=== PATIENT | female | born 1965 | race Caucasian/White ===

== ENCOUNTER → 2019-02-28 09:36 | Outpatient (CLI) | payer MEDICARE, MEDICAID, SELFPAY ==
--- NOTE | 2019-02-28 09:42 | CA_ITS ---
PROCEDURE: 2-D M-mode and color Doppler study INDICATIONS FOR THE TEST: Chest pain+ COPD Heart Murmur Tobacco SmokingEX Palpitations+ Fatigue Syncope Edema Hypertension+Diabetes Mellitus+ Rheumatic Fever SOB+VICK Obesity Hyperlipidemia+ Family History HD Additional History MVR mech, CKD PATIENT INFORMATION HEIGHT: 64 WEIGHT: 182 GENDER: Female B/P: 118/65 2-D/M-MODE INTERPRETATION: 2-D MEASUREMENTS OBSERVED VALUES IN CMS Right Ventricular Dimension (RVDd) 3.1 Interventricular Septum (Thickness)(IVsd) 1.0 Left Ventricular Internal Dimensions(LVIDd) 6.2 Left Ventricular Posterior Wall (Thickness)(LVPWd) 0.9 Aortic Root 2.4 Aortic Cusp Separation 1.8 Left Atrial Dimensions (LAD) 5.6 2D 1. Left atrium is moderately enlarged, left ventricle is mildly dilated, there is mild concentric left ventricular hypertrophy, visually estimated ejection fraction proximally 40%, there is abnormal septal motion. 2. The right atrium is markedly enlarged, right ventricle is moderately dilated with mildly reduced contractility. 3. The aortic valve is thickened and calcified leaflet can't to display mobility. 4. There is mechanical prosthetic valve seen in the mitral position. 5. The tricuspid valve leaflets are minimally thickened, the tricuspid annulus is dilated. 6. The pulmonic valve is poorly present. 7. No significant pericardial effusion noted. DOPPLER INTERROGATION: 1. The aortic outflow velocities within normal range, there is no aortic stenosis, there is mild aortic insufficiency. 2. The mitral inflow velocity is increased to 1.8 m/s across the prosthetic valve, mean gradient across valve is 5 mmHg, calculated valve area by pressure half time is 2.9 sq cm. There is no significant mitral regurgitation seen. 3. There is severe tricuspid regurgitation noted, calculated right ventricular systolic pressure is 47 mm of mildly consistent with moderate pulmonary hypertension. Inferior vena cava is dilated without significant discogenic collapse. CONCLUSION: 1. Biatrial enlargement, mildly dilated left ventricle, mild concentric left ventricular hypertrophy, visually estimated ejection fraction 40% with abnormal septal motion. 2. Moderately enlarged right ventricle with mild reduced contractility. 3. Normal functioning mechanical prosthetic valve in the mitral position without significant mitral inflow obstruction or mitral regurgitation. 4. Thickened and calcified aortic valve without Doppler evidence of aortic stenosis, there is mild aortic insufficiency. 5. Severe tricuspid reg
== END ==
PROVIDERS: PCP Internal Medicine; Visit Provider Nurse Practitioner Family
DX: I07.1 Rheumatic tricuspid insufficiency (principal); I50.33 Acute on chronic diastolic (congestive) heart failure; Z95.2 Presence of prosthetic heart valve
CPT/HCPCS: 93306

== ENCOUNTER → 2020-04-02 11:52 | Outpatient (CLI) | payer MEDICARE, SELFPAY ==
[2020-04-02 18:08] LABS: INR 1.96 (0.9-1.1); Prothrombin Time 19.7 seconds (9.4-11.8)
== END ==
PROVIDERS: Visit Provider Internal Medicine
DX: Z51.81 Encounter for therapeutic drug level monitoring (principal); Z79.01 Long term (current) use of anticoagulants
CPT/HCPCS: 85610

== ENCOUNTER → 2020-08-16 13:36 | Outpatient (POV) | payer MEDICARE, SELFPAY | PROVIDERS: Visit Provider Internal Medicine Nephrology | DX: Z00.00 Encounter for general adult medical examination without abnormal findings (principal) ==

== ENCOUNTER → 2020-10-18 13:58 | Outpatient (POV) | payer MEDICARE, SELFPAY | PROVIDERS: Visit Provider Internal Medicine Nephrology | DX: Z00.00 Encounter for general adult medical examination without abnormal findings (principal) ==

== ENCOUNTER → 2020-12-13 14:54 | Outpatient (POV) | payer MEDICARE, SELFPAY | PROVIDERS: Visit Provider Internal Medicine Nephrology | DX: Z00.00 Encounter for general adult medical examination without abnormal findings (principal) ==

== ENCOUNTER → 2021-02-05 12:55 | Outpatient (CLI) | payer MEDICARE, MEDICAID, SELFPAY ==
--- NOTE | 2021-02-05 12:57 | CA_ITS ---
APPROVED REPORT EXAM: Comprehensive 2D, Doppler, and color-flow Echocardiogram Safety Engineer: Malini Del Cid RVT Ht: 5 ft 4 in Wt: 182lbs BSA: 1.88 BP: 106/43 mmHg Indications: SOA,MECHANICAL MV,OBESITY,EDEMA,HTN,HLD,DM TDS-PT BODY HABITUS 2D Dimensions LVOT 1.71 cm (M/F) 1.5-2.5 M-Mode Dimensions RVDd 3.81 cm (0.9-2.6) LA Diam 6.50 cm (1.9-4.0) LVDd 6.49 cm (3.5-5.7) Ao Diam 2.50 cm (2.0-3.7) LVDs 5.20 cm (3.5-5.7) IVSd 0.33 cm (0.6-1.1) PWd 0.70 cm (0.6-1.1) EF (Teich) 39.80% FS 19.90% EDV (Teich) 215.20 mL TAPSE 1.73 (<1.7) ESV (Teich) 129.50 mL LV Diastology E Decel Time 267.00 (160-240 msec) MED E' 7.10 (< 7 cm/sec) E'/MED E' Ratio 27.18 (>14) LAT E' 12.60 (<10 cm/sec) E/LAT E' Ratio 15.32 (>14) Aortic Valve LVOT Max 94.00 (70-110 cm/s) LVOT VTI 20.47 cm AoV Peak Jak. 193.00 (50-130 cm/s) AI PHT 459.00 ms AO Peak GR. 15.00 mmHg AO Mean GR. 6.80 (<5 mmHg) AO VTI 37.12 (18-25 cm) CLAIR (VTI) 1.27 (2.5-4.5 cm2) Mitral Valve MV E Max Jak. 193.00 (40-130 cm/s) MV Decel. Time 267.00 (160-240 ms) MV PHT 78.00 ms Pulmonary Valve PV Peak Velocity 81.00 (50-150 cm/s) Tricuspid Valve TR P. Velocity 265.00 cm/s RAP Estimate 15.00 mmHg RVSP 43.10 mmHg Left Ventricle Left atrium is moderately enlarged, left ventricle is normal size, mild concentric left ventricular hypertrophy, there is abnormal septal motion, visually estimated ejection fraction approximately 45% with no regional wall motion abnormality, diastolic parameters are inconclusive. Right Ventricle Right atrium and right ventricle moderately enlarged with normal contractility. Aortic Valve Aortic valve is minimally thickened and fibrosed, there is no aortic stenosis, there is mild aortic insufficiency. Mitral Valve There is mechanical prosthetic valve noted in the mitral position, the valve is well-seated, the mean gradient across valve is 5.2 mmHg, valve area is 2.6 cm??? by pressure half-time which does not represent a significant mitral inflow obstruction, there is no significant mitral regurgitation. Tricuspid Valve Tricuspid valve is minimally thickened, there is severe tricuspid regurgitation, calculated right ventricular systolic pressure 38 mmHg. Pulmonic Valve Pulmonic valve is poorly visualized. Great Vessels Aortic root is normal size. Pericardium No significant pericardial effusion noted. Conclusion 1. Biatrial enlargement, normal left ventricular size, mild concentric left ventricular hypertrophy, visually estimated ejection fraction 45%, there is abnormal septal motion. Diastolic parameters are inconclusive. 2. Moderately enlarged right ventricle with normal contractility. 3. Thickened and calcified aortic valve without aortic stenosis, there is mild aortic insufficiency. 4. Normal functioning mechanical prosthetic valve in the mitral position. 5. Severe tricuspid regurgitation, calculated right ventricular systolic pressure is 38 mmHg, inferior vena cava is dilated without significant inspiratory collapse. 6. No significant pericardial effusion noted. Electronically signed by : Pedro Jacobsen, 02/06/2021 15:24:22
== END ==
PROVIDERS: PCP Internal Medicine; Visit Provider Nurse Practitioner Family
DX: Z01.818 Encounter for other preprocedural examination; R06.02 Shortness of breath; E10.9 Type 1 diabetes mellitus without complications; E78.2 Mixed hyperlipidemia; I07.1 Rheumatic tricuspid insufficiency; I11.0 Hypertensive heart disease with heart failure; I50.23 Acute on chronic systolic (congestive) heart failure; I50.32 Chronic diastolic (congestive) heart failure; I50.33 Acute on chronic diastolic (congestive) heart failure; N18.1 Chronic kidney disease, stage 1; N18.2 Chronic kidney disease, stage 2 (mild); Z95.2 Presence of prosthetic heart valve
CPT/HCPCS: 93306

== ENCOUNTER 2021-06-05 18:39 | Observation (INO) | payer MEDICARE, SELFPAY ==
[2021-06-05 18:40] VITALS: BP 140/85; PULSE 70; RESP 16; TEMP 37; O2SAT 93; BMI 29.9
--- NOTE | 2021-06-05 18:41 | XR_ITS ---
PROCEDURE INFORMATION: Exam: XR Chest Exam date and time: 06/05/2021 6:41 PM Age: 56 years old Clinical indication: Pain; Angina pectoris; Prior surgery; Surgery date: 6+ months; Surgery type: Mitral valve, some device to measure fluid around heart; Additional info: Chest pain TECHNIQUE: Imaging protocol: XR of the chest. Views: 1 view. Total images: 1 COMPARISON: No relevant prior studies available. FINDINGS: Tubes, catheters and devices: Left subclavian port with catheter tip in the distribution of the cavoatrial junction. Lungs: Normal pulmonary expansion. Mild central vascular congestion. Mild bilateral perihilar interstitial prominence and patchy mild alveolar densities which may represent mild perihilar edema or pneumonia. Pleural spaces: No pleural effusion. No pneumothorax. Heart/Mediastinum: Moderate-severe enlargement of the cardiac silhouette which could relate to cardiomegaly or pericardial effusion Prior median sternotomy. Prosthetic heart valve noted. No tracheal/mediastinal shift. Bones/joints: No acute osseous abnormalities are identified. Osteopenia. IMPRESSION: 1. Moderate-severe large mint of the cardiac silhouette which could relate to cardiomegaly or pericardial effusion. 2. Vascular congestive changes with mild bilateral perihilar interstitial and alveolar density which may reflect perihilar edema or pneumonia.
--- NOTE | 2021-06-05 18:49 | ECG_ITS ---
APPROVED REPORT Exam: Resting ECG HR:70 bpm ECG Measurements Heart Rate 70 AXES QRSd 122 QRS 107 QT 356 T 107 QTc 384 Conclusion Atrial fibrillation Rightward axis RSR' or QR pattern in V1 suggests right ventricular conduction delay Nonspecific ST and T wave abnormality Abnormal ECG Electronically signed by : Reji Castro, 06/06/2021 21:37:12
[2021-06-05 18:55] LABS: Basophils % 0.4 % (0.1-2.0); Eosinophils # 0.3 K/mm3 (0.0-0.4); Eosinophils % 3.2 % (0.1-12.0); Hematocrit 29.5 % (37.0-47.0); Hemoglobin 9.5 g/dL (12.2-16.2); Lymphocytes # 0.7 K/mm3 (0.7-4.5); Lymphocytes % 7.9 % (10-50); Mean Corpuscular Hemoglobin 23.8 pg (27.0-31.2); Mean Corpuscular Volume 74.1 fl (81-99); Mean Platelet Volume 7.8 fl (7.4-10.4); Monocytes # 0.5 K/mm3 (0.1-1.0); Monocytes % 6.1 % (1.7-9.3); Neutrophils # 6.8 K/mm3 (1.8-7.8); Neutrophils % 82.4 % (37.0-80.0); Platelet Count 294 K/mm3 (142-424); Red Blood Count 3.98 M/mm3 (4.20-5.40); Red Cell Distribution Width 18.2 % (11.5-17.5); White Blood Count 8.2 K/mm3 (4.8-10.8)
[2021-06-05 19:04] LABS: Alanine Aminotransferase 23 U/L (12-78); Albumin Level 4.9 g/dl (3.5-5.0); Albumin/Globulin Ratio 1.6 (1.1-1.8); Alkaline Phosphatase 125 U/L (38-126); Anion Gap 15.4 mEq/L (5-15); Aspartate Amino Transferase 37 U/L (14-36); Bilirubin,Total 0.8 mg/dl (0.2-1.3); Blood Urea Nitrogen 70 mg/dl (7-17); Calcium 9.4 mg/dl (8.4-10.2); Carbon Dioxide 35 mmol/L (22.0-30.0); Chloride 86 mmol/L (98-107); Creatinine Clearance Estimated 53 mL/min (50-200); Estimated Glomerular Filt Rate 36 ml/min (>60); GFR (African American) 43 ML/MIN (>60); Glucose 269 mg/dl (74-100); Magnesium 2.3 mg/dl (1.6-2.3); Sodium 134 mmol/L (136-145); Total Protein,Serum 7.9 g/dl (6.3-8.2)
--- NOTE | 2021-06-05 19:04 | HMH.EDGENADL ---
ED Disposition Clinical Impression: Hypokalemia, Pulmonary edema Disposition: Admitted as Observation Condition on Discharge: Good Referrals: Provider,Referral, [Referring] - - Critical Care Critical Care Time: No Attestation: On 06/05/21, the high probability of a clinically significant, sudden or life threatening deterioration of the following system(s) required my full and direct attention, intervention and personal management. The time I documented below is in addition to time spent performing reported procedures but includes the following listed in this critical care notation. Medical Decision Making - Medical Records Medical records reviewed: Yes: I reviewed the patient's medical records. - Jeancarlos Inquiry Pt receiving controlled substance: No Vital Signs: 06/05/21 18:40 Temperature 98.6 F Temperature Source Oral Pulse Rate [Left] 70 Respiratory Rate 16 Blood Pressure [Right Arm] 140/85 Blood Pressure Mean [Right Arm] 103 Blood Pressure Position [Right Arm] Supine 02 Sat by Pulse Oximetry 93 L Oxygen Delivery Method Room Air - Lab Data Lab Results 06/05/21 18:20: WBC 8.2, RBC 3.98 L, Hgb 9.5 L, Hct 29.5 L, MCV 74.1 L, MCH 23.8 L, MCHC 32.0, RDW 18.2 H, Plt Count 294, MPV 7.8, Neut % (Auto) 82.4 H, Lymph % (Auto) 7.9 L, [place] % (Auto) 6.1, Eos % (Auto) 3.2, Baso % (Auto) 0.4, Neut # (Auto) 6.8, Lymph # (Auto) 0.7, [place] # (Auto) 0.5, Eos # (Auto) 0.3, Baso # (Auto) 0.0 06/05/21 18:20: D-Dimer 0.37 06/05/21 18:20: Sodium 134 L, Potassium 2.4 L*, Chloride 86 L, Carbon Dioxide 35 H, Anion Gap 15.4 H, BUN 70 H, Creatinine 1.50 H, Estimated Creat Clear 53, Estimated GFR 36 L, Est GFR ( Amer) 43 L, Glucose 269 H, Calcium 9.4, Magnesium 2.3, Total Bilirubin 0.8, AST 37 H, ALT 23, Alkaline Phosphatase 125, Troponin I < 0.01, Total Protein 7.9, Albumin 4.9, Globulin 3.0, Albumin/Globulin Ratio 1.6 06/05/21 18:20: PT 15.9 H, INR 1.38 H Result diagrams: 06/05/21 18:20 06/05/21 18:20 Orders (Tests/Meds): ED MEDICATIONS Generic Name Dose Route Start Last Admin Trade Name Freq PRN Reason Stop Dose Admin Potassium Chloride/Water 100 mls @ 100 mls/hr 06/05/21 19:13 Potassium Chloride 10meq/100ml Ivpb IV 06/05/21 21:12 Q1H JOEY Discontinued Medications Generic Name Dose Route Start Last Admin Trade Name Freq PRN Reason Stop Dose Admin Potassium Chloride 40 meq 06/05/21 19:12 Potassium Chloride 20meq Tab PO 06/05/21 19:13 ONCE ONE ORDERS Category Date Time Status Comprehensive Metabolic Panel Stat Lab 06/05/21 18:20 Results Magnesium Stat Lab 06/05/21 18:20 Results Thyroid Stimulating Hormone Stat Lab 06/05/21 18:20 Results Troponin I Q3H Lab 06/05/21 18:20 Results Troponin I Q3H Lab 06/05/21 21:45 Ordered - LYDIA Score for Non-Stemi Age of Patient: 50-59 years old Heart Rate: 70-89 bpm Systolic Blood Pressure: 140-159 mmHg Serum Creatinine: 0.40-0.79 mg/dl CHF Killip Class: I-No CHF Other Risk Factors: None Non-Stemi Risk Score: 78 Medical Decision Narrative: 56-year-old female presents with generalized weakness and palpitations and right-sided chest pain. She is in no acute distress nontoxic-appearing comfortable in the bed. She has normal vital signs and is not having tachycardia at this time. She was placed on telemetry monitoring and large-bore IV was placed. She is on Coumadin, INR was checked. Low risk per Wells score for pulmonary embolism, D-dimer obtained to assess. Checking hemoglobin as well as anemia as possible. Atypical for myocardial infarction troponin ordered. Potassium was 2.4. Plan to give K -runs tonight. Recheck potassium in the morning. She has mild edema on her chest x-ray however saturation is only 93% and she is not distressed. We will hold IV fluids at this time. Discussed with Dr. Herbert plan to admit for observation General Adult HPI - General Chief complaint: Arrhythmia/Palpitations Stated complai
[2021-06-05 19:05] LABS: Prothrombin Time 15.9 seconds (10.1-12.5)
[2021-06-05 19:06] LABS: INR 1.38 (0.9-1.1)
[2021-06-05 19:12] LABS: Potassium 2.4 mmoL/L (3.5-5.1)
[2021-06-05 19:13] LABS: D-Dimer 0.37 ug/mL (0.0-0.5)
[2021-06-05 19:18] LABS: Troponin I < 0.01 ng/ml (0.00-0.034)
--- NOTE | 2021-06-05 19:32 | PC.NURSE ---
Dr. Piedad mcbride for service
--- NOTE | 2021-06-05 19:33 | PC.NURSE ---
patient on phone with Dr. Herbert
[2021-06-05 19:35] LABS: Thyroid Stimulating Hormone 0.89 uIU/mL (0.465-4.68)
[2021-06-05 20:34] LABS: Coronavirus 19, PCR Not Detected (NotDetected); Influenza A, PCR Not Detected (NotDetected); Influenza B, PCR Not Detected (NotDetected)
[2021-06-05 21:31] VITALS: BP 134/75; PULSE 67; RESP 18; TEMP 37; O2SAT 97
[2021-06-05 21:59] VITALS: BP 132/81; PULSE 77; RESP 18; TEMP 36.7; O2SAT 94; BMI 31.9
--- NOTE | 2021-06-05 21:59 | PC.NURSE ---
patient up to floor via wheelchair.
--- NOTE | 2021-06-05 22:18 | PC.NURSE ---
1645 paged instructional services specialist MD Gomez spoke with Dr. Herbert new orders received.
[2021-06-05 22:38] VITALS: PULSE 60
[2021-06-05 22:45] LABS: Troponin I 0.01 ng/ml (0.00-0.034)
[2021-06-05 23:40] VITALS: O2SAT 94
[2021-06-06] VITALS (18 sets, daily range): BP systolic 96–141; BP diastolic 49–81; PULSE 55–79; RESP 16–20; TEMP 36.6–37; O2SAT 94–100
[2021-06-06 07:06] LABS: Basophils % 0.5 % (0.1-2.0); Eosinophils # 0.3 K/mm3 (0.0-0.4); Eosinophils % 3.8 % (0.1-12.0); Hematocrit 27.9 % (37.0-47.0); Hemoglobin 8.9 g/dL (12.2-16.2); Lymphocytes # 0.7 K/mm3 (0.7-4.5); Lymphocytes % 8.9 % (10-50); Mean Corpuscular HGB Conc 31.9 g/dL (31.8-35.4); Mean Corpuscular Hemoglobin 23.7 pg (27.0-31.2); Mean Corpuscular Volume 74.4 fl (81-99); Mean Platelet Volume 7.8 fl (7.4-10.4); Monocytes # 0.5 K/mm3 (0.1-1.0); Monocytes % 5.9 % (1.7-9.3); Neutrophils # 6.6 K/mm3 (1.8-7.8); Neutrophils % 80.9 % (37.0-80.0); Platelet Count 252 K/mm3 (142-424); Red Blood Count 3.74 M/mm3 (4.20-5.40); Red Cell Distribution Width 18.3 % (11.5-17.5); White Blood Count 8.2 K/mm3 (4.8-10.8)
[2021-06-06 07:07] LABS: Anion Gap 13.5 mEq/L (5-15); Blood Urea Nitrogen 62 mg/dl (7-17); Calcium 9.2 mg/dl (8.4-10.2); Carbon Dioxide 38 mmol/L (22.0-30.0); Chloride 90 mmol/L (98-107); Creatinine Clearance Estimated 58 mL/min (50-200); Estimated Glomerular Filt Rate 39 ml/min (>60); GFR (African American) 47 ML/MIN (>60); Glucose 119 mg/dl (74-100); Magnesium 2.1 mg/dl (1.6-2.3); Phosphorous 3.7 mg/dl (2.5-4.5); Sodium 139 mmol/L (136-145)
--- NOTE | 2021-06-06 07:18 | P.CONPHA_ITS ---
[facility] Pharmacy VTE Monitoring - Patient Demographics Admission date: 06/05/21 Report Date: 06/06/21 Time: 07:18 Allergies/Adverse Reactions: Patient Allergies buprenorphine [From BUPRENEX] Allergy (Unknown, Verified 04/22/21 13:37) codeine [CODEINE] Allergy (Unknown, Verified 04/22/21 13:37) Corticosteroids (Glucocorticoids) [CORTICOSTEROIDS (GLUCOCORTICOIDS)] Allergy (Unknown, Verified 04/22/21 13:37) Iodinated Contrast Media [IODINATED CONTRAST- ORAL AND IV DYE] Allergy (Unknown, Verified 04/22/21 13:37) rosuvastatin [From CRESTOR] Allergy (Unknown, Verified 04/22/21 13:37) theophylline [From DAVID-DUR] Allergy (Unknown, Verified 04/22/21 13:37) prednisone Adverse Reaction (Verified 04/22/21 13:37) Height: 1.63 m Weight: 84.391 kg Patient Problems: Current Active Problems (Last Updated 07/03/20 @ 10:17 by Janette Barahona RN) Hypokalemia (Acute) Pulmonary edema (Acute) - VTE Risk Labs: VTE Related Lab Results Hgb 8.9 g/dL (12.2-16.2) L 06/06/21 05:56 Hct 27.9 % (37.0-47.0) L 06/06/21 05:56 Plt Count 252 K/mm3 (142-424) 06/06/21 05:56 PT 15.9 seconds (10.1-12.5) H 06/05/21 18:20 INR 1.38 (0.9-1.1) H 06/05/21 18:20 BUN 70 mg/dl (7-17) H 06/05/21 18:20 Creatinine 1.50 mg/dl (0.52-1.04) H 06/05/21 18:20 Estimated Creat Clear 53 mL/min (50-200) 06/05/21 18:20 VTE Risk Level: Low Risk - Prophylaxis VTE Prophylaxis Ordered?: Yes Types of VTE Prophylaxis: TEDS Knee High, Pharmacological Location of Applied Device: Bilateral Lower Extremeties Pharmacologic Type: Warfarin
--- NOTE | 2021-06-06 07:25 | HMH.HPDC ---
General - General Admission date:: 06/05/21 Discharge date: 06/06/21 *Admission Date: 06/05/21 [facility] History I have reviewed the patient's past medical history: Yes Medical History: Reports:: Atrial Fibrillation, Chronic Obstructive Pulmonary Disease (COPD), Diabetes Mellitus Type 2, Gastroesophageal Reflux Disease(GERD), Hyperlipidemia, Hypertension *Have you ever received a pneumonia vaccine?: Yes *Have you received a flu vaccine this season?: Yes Other Medical History: Reports: Anemia, Arthritis, Hypothyroidism Other Surgeries: Yes: Hernia Repair, Tubal Ligation Amputation: No Fractures: No - *Social History Smoking Status: Former smoker Tobacco Type: cigarettes Alcohol Intake: never Substance Use Type: denies use *Occupational Status:: retired Review of Systems - Review of Systems Review of systems:: pertinent systems reviewed and negative unless documented below (14 point review of systems performed, pertinent positives and negatives as per HPI) - *Neurologic Denies dizziness, Denies headache(s) Exam Vital signs and Labs for Last 24 Hours: Temp Pulse Resp BP Pulse Ox 97.8 F 69 16 118/63 100 06/06/21 05:02 06/06/21 05:02 06/06/21 05:02 06/06/21 05:02 06/06/21 05:02 Laboratory Results - last 24 hr 06/05/21 18:20: WBC 8.2, RBC 3.98 L, Hgb 9.5 L, Hct 29.5 L, MCV 74.1 L, MCH 23.8 L, MCHC 32.0, RDW 18.2 H, Plt Count 294, MPV 7.8, Neut % (Auto) 82.4 H, Lymph % (Auto) 7.9 L, [place] % (Auto) 6.1, Eos % (Auto) 3.2, Baso % (Auto) 0.4, Neut # (Auto) 6.8, Lymph # (Auto) 0.7, [place] # (Auto) 0.5, Eos # (Auto) 0.3, Baso # (Auto) 0.0 06/05/21 18:20: D-Dimer 0.37 06/05/21 18:20: Sodium 134 L, Potassium 2.4 L*, Chloride 86 L, Carbon Dioxide 35 H, Anion Gap 15.4 H, BUN 70 H, Creatinine 1.50 H, Estimated Creat Clear 53, Estimated GFR 36 L, Est GFR ( Amer) 43 L, Glucose 269 H, Calcium 9.4, Magnesium 2.3, Total Bilirubin 0.8, AST 37 H, ALT 23, Alkaline Phosphatase 125, Troponin I < 0.01, Total Protein 7.9, Albumin 4.9, Globulin 3.0, Albumin/Globulin Ratio 1.6, TSH 0.89 06/05/21 18:20: PT 15.9 H, INR 1.38 H 06/05/21 19:40: SARS-CoV-2 (PCR) Not detected, Influenza A Untype (PCR) Not detected, Influenza Type B (PCR) Not detected 06/05/21 22:14: Troponin I 0.01 06/06/21 05:56: WBC 8.2, RBC 3.74 L, Hgb 8.9 L, Hct 27.9 L, MCV 74.4 L, MCH 23.7 L, MCHC 31.9, RDW 18.3 H, Plt Count 252, MPV 7.8, Neut % (Auto) 80.9 H, Lymph % (Auto) 8.9 L, [place] % (Auto) 5.9, Eos % (Auto) 3.8, Baso % (Auto) 0.5, Neut # (Auto) 6.6, Lymph # (Auto) 0.7, [place] # (Auto) 0.5, Eos # (Auto) 0.3, Baso # (Auto) 0.0 I & O for Last 24 hours: Intake & Output 06/03/21 06/04/21 06/05/21 06/06/21 23:59 23:59 23:59 23:59 Weight 84.391 kg Results Labs on day of discharge: Labs from last 24 hours 06/06/21 06/05/21 06/05/21 05:56 22:14 19:40 WBC 8.2 RBC 3.74 L Hgb 8.9 L Hct 27.9 L MCV 74.4 L MCH 23.7 L MCHC 31.9 RDW 18.3 H Plt Count 252 MPV 7.8 Neut % (Auto) 80.9 H Lymph % (Auto) 8.9 L [place] % (Auto) 5.9 Eos % (Auto) 3.8 Baso % (Auto) 0.5 Neut # (Auto) 6.6 Lymph # (Auto) 0.7 [place] # (Auto) 0.5 Eos # (Auto) 0.3 Baso # (Auto) 0.0 PT INR D-Dimer Sodium Potassium Chloride Carbon Dioxide Anion Gap BUN Creatinine Estimated Creat Clear Estimated GFR Est GFR ( Amer) Glucose Calcium Magnesium Total Bilirubin AST ALT Alkaline Phosphatase Troponin I 0.01 Total Protein Albumin Globulin Albumin/Globulin Ratio TSH SARS-CoV-2 (PCR) Not detected Influenza A Untype (PCR) Not detected Influenza Type B (PCR) Not detected 06/05/21 06/05/21 06/05/21 18:20 18:20 18:20 WBC RBC Hgb Hct MCV MCH MCHC RDW Plt Count MPV Neut % (Auto) Lymph % (Auto) [place] % (Auto) Eos % (Auto) Baso % (Auto) Neut # (Auto) Lymph # (Auto) [place]imes #
--- NOTE | 2021-06-06 07:30 | CA_ITS ---
APPROVED REPORT EXAM: Comprehensive 2D, Doppler, and color-flow Echocardiogram Volcanologist: Shakira White RT(R) Ht: 5 ft 4 in Wt: 186lbs BSA: 1.90 BP: 118/63 mmHg Indications: AFIB, ex smoker, SOB, DM, HTN, hyperlipidemia, CHF, CM, mechanical MVR, GERD, pulmonary edema 2D Dimensions LVOT 2.02 cm (M/F) 1.5-2.5 LA Volume 173.20 mL LA Volume Index 91.64 mL/m2 (M/F) 16-34 M-Mode Dimensions RVDd 4.07 cm (0.9-2.6) LA Diam 5.92 cm (1.9-4.0) LVDd 6.11 cm (3.5-5.7) Ao Diam 2.39 cm (2.0-3.7) LVDs 5.13 cm (3.5-5.7) IVSd 0.85 cm (0.6-1.1) PWd 0.72 cm (0.6-1.1) EF (Teich) 33.10% FS 16.00% EDV (Teich) 187.60 mL ESV (Teich) 125.50 mL LV Diastology MED E' 9.70 (< 7 cm/sec) LAT E' 9.20 (<10 cm/sec) Aortic Valve LVOT Max 98.00 (70-110 cm/s) LVOT VTI 19.66 cm AoV Peak Jak. 211.00 (50-130 cm/s) AO Peak GR. 17.80 mmHg AO Mean GR. 8.80 (<5 mmHg) AO VTI 39.63 (18-25 cm) CLAIR (VTI) 1.59 (2.5-4.5 cm2) Mitral Valve MV PHT 90.00 ms Tricuspid Valve TR P. Velocity 267.00 cm/s RAP Estimate 10.00 mmHg RVSP 38.50 mmHg Left Ventricle Left atrium is moderately enlarged, left ventricle is normal size, mild concentric left ventricular hypertrophy, visually estimated ejection fraction 45%, there is abnormal septal motion. Diastolic parameters are inconclusive. Right Ventricle Right atrium is moderately enlarged, right ventricle is mildly dilated with normal contractility. Aortic Valve Aortic valve is thickened and calcified, mean gradient across aortic valve is 8.6 mmHg, this represents a mild aortic stenosis, there is no significant aortic insufficiency. Mitral Valve There is mechanical prosthetic valve noted in the mitral position, the valve is well-seated, the mean gradient across valve is 6.4 mmHg, valve area is 2.4 cm??? by pressure half-time, there is no significant mitral regurgitation seen. Tricuspid Valve Tricuspid valve is minimally thickened, there is moderate to severe tricuspid regurgitation, calculated right ventricular systolic pressure is 39 mmHg, inferior vena cava is mildly dilated without significant inspiratory collapse. Pulmonic Valve Pulmonic valve is poorly visualized. Great Vessels Aortic root is normal size. Pericardium No significant pericardial effusion noted. Conclusion 1. Moderate biatrial enlargement, normal left ventricular size, mild concentric left ventricular hypertrophy, visually estimated ejection fraction 45%, there is abnormal septal motion. Diastolic parameters are inconclusive. 2. Thickened and calcified aortic valve with mild aortic stenosis, there is no significant aortic insufficiency. 3. Mechanical prosthetic valve in the mitral position, valve area is 2.4 cm, by pressure half-time, mean gradient across valve is 6.4 mmHg. There is no significant mitral regurgitation seen. 4. Moderate to severe tricuspid regurgitation, calculated right ventricular systolic pressure is 36 mmHg. 5. Inferior vena cava is mildly dilated without significant inspiratory collapse with 6. No significant pericardial effusion noted. Electronically signed by : Pedro Jacobsen, 06/06/2021 09:54:01
[2021-06-06 07:35] LABS: Potassium 2.5 mmoL/L (3.5-5.1)
--- NOTE | 2021-06-06 08:12 | HMH.CNCARD ---
History of Present Illness Consult date: 06/06/21 Requesting physician: Neptali Herbert Consult reason: shortness of breath Chief complaint: CHF Additional Medical History:: 1. Normal coronaries, 2017 2. CHF, recurrent (HFrEF) A. 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 3. HTN A. Echo, 01/2021, 1. Biatrial enlargement, normal left ventricular size, mild concentric left ventricular hypertrophy, visually estimated ejection fraction 45%, there is abnormal septal motion. Diastolic parameters are inconclusive. 2. Moderately enlarged right ventricle with normal contractility. 3. Thickened and calcified aortic valve without aortic stenosis,there is mild aortic insufficiency. 4. Normal functioning mechanical prosthetic valve in the mitral position. 5. Severe tricuspid regurgitation, calculated right ventricular systolic pressure is 38 mmHg, inferior vena cava is dilated without significant inspiratory collapse. 6. No significant pericardial effusion noted. Electronically signed by : Pedro Jacobsen, 02/06/2021 15:24:22 4. Chronic A. fib, on coumadin managed by PCP 5. History of [facility] mechanical MV replacement, 2005, [place], [place], Dr. Paul Castillo A. Echocardiogram, 06/06/2021,1. Moderate biatrial enlargement, normal left ventricular size, mild concentric left ventricular hypertrophy, visually estimated ejection fraction 45%, there is abnormal septal motion. Diastolic parameters are inconclusive. 2. Thickened and calcified aortic valve with mild aortic stenosis, there is no significant aortic insufficiency. 3. Mechanical prosthetic valve in the mitral position, valve area is 2.4 cm, by pressure half-time, mean gradient across valve is 6.4 mmHg. There is no significant mitral regurgitation seen. 4. Moderate to severe tricuspid regurgitation, calculated right ventricular systolic pressure is 36 mmHg. 5. Inferior vena cava is mildly dilated without significant inspiratory collapse with 6. No significant pericardial effusion noted. Electronically signed by : Pedro Jacobsen, 06/06/2021 09:54:01 6. DM, type 2, diagnosed 2005 7. GERD 8. COPD 9. History of multiple urologic procedures for urethral stricture 10. Cardiorenal syndrome, followed by nephrology 11. Autoimmune iron deficiency hemolytic anemia A. Patient relates 170 units transfused in the past sometimes as often as every 3 weeks B. Indwelling PowerPort left chest C. Reportedly had prior bone marrow biopsy showing bone marrow functioning normally. Anemia related to spleen activity. History of present illness: 56-year-old white female with history of normal coronary arteries but recurrent congestive heart failure presented to the emergency department yesterday for increasing shortness of breath and weight gain despite adjustment of her diuretics through nephrology over the last month. Patient was admitted due to multiple lab abnormalities and failing outpatient therapy. Cardiology consulted due to marked cardiomegaly noted on chest x-ray. Patient does have an implanted CardioMEMS device with recent mean PA readings in the 30 to 40 mmHg range. Despite taking supplemental potassium her potassium level was 2.4 yesterday with creatinine of 1.5 and BUN of 70. Hemoglobin noted to be 9.5 yesterday and 8.9 this morning for which patient will be receiving 1 unit of blood. After receiving IV Lasix yesterday she does feel a little bit better this morning but not back to her baseline. Echocardiogram was obtained earlier today and is essentially unchanged from 4 months ago. Mitral valve appears to be working appropriately with no change in her aortic insufficiency. Ejection fraction is still estimated around 45%. Patient does have chronic chest pain related to sternotomy incision. [facility] History Medical History: Reports:: Atrial Fibrillation, Chronic Obstructive Pulmonary Dise
[2021-06-06 08:13] LABS: Hemoglobin A1C 7.2 % (4.0-6.0)
--- NOTE | 2021-06-06 09:01 | HMH.HP ---
*Admission Date: 06/05/21 *Chief complaint: SOA, palpitations *History of present illness: 56-year-old female with history of cardiorenal syndrome, Congestive heart failure, chronic kidney disease, chronic anemia, A. fib, on chronic anticoagulation who presented to the ER yesterday due to palpitations and shortness of breath. On arrival found to have low potassium, chest imaging of pulmonary edema, and concern for cardiomegaly. Admitted to medicine for electrolyte repletion and cardiology consult. On assessment this morning, reports she was recently admitted 10 days ago to [facility] for acute congestive heart failure with significant peripheral edema. Was started on diuretic daily with improvement in her shortness of breath and significant diuresis. Showed pictures of legs with 3+ pitting edema 2 weeks ago, no edema noted today on exam. Following from cardiology H&P: Cardiology consulted due to marked cardiomegaly noted on chest x-ray. Patient does have an implanted CardioMEMS device with recent mean PA readings in the 30 to 40 mmHg range. Despite taking supplemental potassium her potassium level was 2.4 yesterday with creatinine of 1.5 and BUN of 70. Hemoglobin noted to be 9.5 yesterday and 8.9 this morning for which patient will be receiving 1 unit of blood. After receiving IV Lasix yesterday she does feel a little bit better this morning but not back to her baseline. Echocardiogram was obtained earlier today and is essentially unchanged from 4 months ago. Mitral valve appears to be working appropriately with no change in her aortic insufficiency. Ejection fraction is still estimated around 45%. Patient does have chronic chest pain related to sternotomy incision. [facility] History I have reviewed the patient's past medical history: Yes Medical History: Reports:: Atrial Fibrillation, Chronic Obstructive Pulmonary Disease (COPD), Diabetes Mellitus Type 2, Gastroesophageal Reflux Disease(GERD), Hyperlipidemia, Hypertension *Have you ever received a pneumonia vaccine?: Yes *Have you received a flu vaccine this season?: Yes Other Medical History: Reports: Anemia, Arthritis, Hypothyroidism Other Surgeries: Yes: Hernia Repair, Tubal Ligation Amputation: No Fractures: No - *Social History Smoking Status: Former smoker Tobacco Type: cigarettes Alcohol Intake: never Substance Use Type: denies use *Occupational Status:: retired *Travel in the last 8 weeks: None Family Hx:: No significant family history Review of Systems - Review of Systems Review of systems:: pertinent systems reviewed and negative unless documented below (14 point review of systems performed, pertinent positives and negatives as per HPI) - *Neurologic Denies dizziness, Denies headache(s) Meds Home Medications Medication Instructions Recorded Confirmed Type aspirin 81 mg tablet,delayed 81 mg PO DAILY 12/01/17 06/06/21 History release warfarin 2.5 mg tablet 2.5 mg PO DIRECTED tab 12/01/17 06/06/21 History oxycodone-acetaminophen 10 mg-325 1 tab PO TIDP PRN tab 05/23/18 06/06/21 History mg tablet docusate sodium 100 mg capsule 100 mg PO TID PRN 02/22/19 06/05/21 History folic acid 1 mg tablet 1 mg PO DAILY 05/31/19 06/05/21 History alprazolam 0.5 mg tablet 0.5 mg PO TIDP PRN 11/29/19 06/06/21 History bumetanide 2 mg tablet 2 mg PO BID 07/03/20 06/05/21 History potassium chloride 10 mEq 20 meq PO DAILY tab 01/20/21 06/05/21 History tablet,extended release citalopram 40 mg tablet 40 mg PO DAILY tab 03/31/21 06/05/21 History diltiazem HCl 120 mg 120 mg PO DAILY cap 03/31/21 06/05/21 History capsule,extended release 24 hr famotidine 20 mg tablet 20 mg PO DAILY 04/22/21 06/05/21 History Levothyroxine Sodium [Synthroid 25 mcg PO DAILY 06/05/21 06/06/21 History 25mcg (0.025mg) tablet] Warfarin Sodium [Coumadin 5mg 5 mg PO DIRECTED 06/05/21 06/06/21 History tablet] metOLazone [metOLazone 2.5mg 5 mg PO DAILY 06/05/21 06/06/21 His
[2021-06-06 15:10] LABS: Hematocrit 30.5 % (37.0-47.0); Hemoglobin 9.7 g/dL (12.2-16.2)
--- NOTE | 2021-06-06 19:26 | PC.NURSE ---
RA SATS 90%. RETURN PT BACK TO 2L N/C
--- NOTE | 2021-06-06 19:56 | PC.NURSE ---
Pt alert and oriented with no c/o's this evening. Pt is stable. Remains in afib. VSS. CB in reach. Meds given per jan. Dr. Herbert did state free style could be used for mx of glucose.
--- NOTE | 2021-06-06 19:58 | PC.NURSE ---
Pt did have one unit of blood( approx 250 ml) infused and close to 3rd hr when pt c/o of itching. This RN immediately stopped blood and notified Dr. Herbert, he ordered 25 mg po benadryl. Pt stated that they usually give her IV benadryl prior to blood infusions. Dr. Herbert ordered not to administer the rest of the unit and check post h&h, which did improve to 9.7.
[2021-06-07] VITALS (13 sets, daily range): BP systolic 89–116; BP diastolic 51–78; PULSE 57–80; RESP 14–18; TEMP 36.4–36.8; O2SAT 89–100; BMI 31.6
--- NOTE | 2021-06-07 03:44 | PC.NURSE ---
shift summary pt is alert and oriented X4. pts lung sounds are clear with sats maintained 95% or above on 2L via NC. pt has rested comfortably during shift . pt is able to ambulate to the restroom unassisted, urine is clear and yellow in color. pt denies any nausea, vomiting, or diarrhea. no acute changes will continue to monitor.
[2021-06-07 07:02] LABS: Basophils # 0.1 K/mm3 (0-0.2); Basophils % 0.6 % (0.1-2.0); Eosinophils # 0.5 K/mm3 (0.0-0.4); Eosinophils % 6.5 % (0.1-12.0); Hematocrit 29.3 % (37.0-47.0); Hemoglobin 9.2 g/dL (12.2-16.2); Lymphocytes # 0.9 K/mm3 (0.7-4.5); Lymphocytes % 12.2 % (10-50); Mean Corpuscular HGB Conc 31.5 g/dL (31.8-35.4); Mean Corpuscular Hemoglobin 24.1 pg (27.0-31.2); Mean Corpuscular Volume 76.5 fl (81-99); Monocytes # 0.5 K/mm3 (0.1-1.0); Monocytes % 6.5 % (1.7-9.3); Neutrophils # 5.6 K/mm3 (1.8-7.8); Neutrophils % 74.2 % (37.0-80.0); Platelet Count 253 K/mm3 (142-424); Red Blood Count 3.82 M/mm3 (4.20-5.40); Red Cell Distribution Width 18.6 % (11.5-17.5); White Blood Count 7.6 K/mm3 (4.8-10.8)
[2021-06-07 07:11] LABS: Blood Urea Nitrogen 64 mg/dl (7-17); Carbon Dioxide 32 mmol/L (22.0-30.0); Chloride 95 mmol/L (98-107); Creatinine Clearance Estimated 34 mL/min (50-200); Estimated Glomerular Filt Rate 21 ml/min (>60); GFR (African American) 25 ML/MIN (>60); Glucose 97 mg/dl (74-100); Sodium 137 mmol/L (136-145)
[2021-06-07 07:14] LABS: INR 1.75 (0.9-1.1); Prothrombin Time 19.8 seconds (10.1-12.5)
--- NOTE | 2021-06-07 07:44 | PC.NURSE ---
Late entry: This RN notified Dr. Herbert of potassium of 2.5 yesterday morning when result was called to me, -06/06/21 am and also checked glucose at approx 1600 06/06/21 and it was 115 via free style reading.
[2021-06-07 08:34] LABS: Calcium 7.8 mg/dl (8.4-10.2)
--- NOTE | 2021-06-07 08:57 | HMH.ACPN2 ---
Internal Medicine - PN: Subj *Date: 06/07/21 *Time: 10:23 Interval history: Ms. Costa was transitioned on her regimen for heart failure and A. fib yesterday. Tolerated well other than some low blood pressure overnight. States she was little lightheaded but no syncope, chest pain, shortness of breath. Tolerating diet well. Afebrile. This morning her blood pressure is little soft so valsartan was held. Repeat blood pressure with systolic 112/63. Asymptomatic at this time. Reviewed labs from this morning, hemoglobin stable (still anemic). Kidney function somewhat worse with bump in creatinine today after adjustments to medication. Exam Vital signs and Labs for Last 24 Hours: Temp Pulse Resp BP Pulse Ox 97.8 F 68 18 89/51 L 97 06/07/21 08:00 06/07/21 08:00 06/07/21 08:00 06/07/21 08:00 06/07/21 08:00 Laboratory Results - last 24 hr 06/06/21 07:50: Blood Type O Positive, Antibody Screen Negative, Crossmatch (AHG) See Detail 06/06/21 14:47: Hgb 9.7 L, Hct 30.5 L 06/07/21 06:35: PT 19.8 H, INR 1.75 H 06/07/21 06:35: WBC 7.6, RBC 3.82 L, Hgb 9.2 L, Hct 29.3 L, MCV 76.5 L, MCH 24.1 L, MCHC 31.5 L, RDW 18.6 H, Plt Count 253, MPV 8.0, Neut % (Auto) 74.2, Lymph % (Auto) 12.2, Rawlins % (Auto) 6.5, Eos % (Auto) 6.5, Baso % (Auto) 0.6, Neut # (Auto) 5.6, Lymph # (Auto) 0.9, Rawlins # (Auto) 0.5, Eos # (Auto) 0.5 H, Baso # (Auto) 0.1 06/07/21 06:35: Sodium 137, Potassium 3.0 L, Chloride 95 L, Carbon Dioxide 32 H, Anion Gap 13.0, BUN 64 H, Creatinine 2.40 H D, Estimated Creat Clear 34, Estimated GFR 21 L, Est GFR ( Amer) 25 L D, Glucose 97, Calcium 7.8 L D, Magnesium 2.0 I & O for Last 24 hours: Intake & Output 06/04/21 06/05/21 06/06/21 06/07/21 23:59 23:59 23:59 23:59 Intake Total 840 / 1200 360 / 360 Balance 840 / 1200 360 / 360 Weight 84.391 kg 83.92 kg Narrative: - Constitutional NAD, chronically ill appearing, obese - *Routine HEENT Exam Head: Present: normocephalic Eye: Present: EOMI, PERRL ENT: Present: mucous membranes moist - *Routine Neck Exam Present: supple. Absent: lymphadenopathy - *Routine Respiratory Exam Present: CTA bilaterally, no crackles - *Routine Cardiovascular Exam Present: RRR, murmur - *Routine Abdominal Exam Present: soft, normoactive bowel sounds. Absent: tenderness - *Routine Extremities Exam No Edema, cyanosis, clubbing - *Routine Skin Exam Present: warm. Absent: rash - *Routine Neurological Exam Present: alert, oriented X3 Assessment and Plan (1) Hypokalemia Status: Acute Category: Medical Code(s): E87.6 - Hypokalemia (2) Pulmonary edema Status: Acute Category: Medical Code(s): J81.1 - Chronic pulmonary edema (3) SOB (shortness of breath) Status: Acute Category: Medical Code(s): R06.02 - Shortness of breath (4) Afib Status: Chronic Qualifiers: Atrial fibrillation type: chronic Category: Medical Code(s): I48.91 - Unspecified atrial fibrillation (5) Diabetes mellitus Status: Chronic Qualifiers: Diabetes mellitus type: type 1 Diabetes mellitus complication status: without complication Qualified Code(s): E10.9 - Type 1 diabetes mellitus without complications Category: Medical Code(s): E11.9 - Type 2 diabetes mellitus without complications (6) nursing home current use of anticoagulants with INR goal of 2.5-3.5 Status: Chronic Category: Medical Code(s): 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
--- NOTE | 2021-06-07 13:10 | PC.NURSE ---
Pts free style checked x 2 this am and it was 209 and the rechecked prior to lunch and it was 173. Pt didnt want ssi for that reading.
[2021-06-07 18:20] LABS: Anion Gap 16.4 mEq/L (5-15); Blood Urea Nitrogen 69 mg/dl (7-17); Carbon Dioxide 35 mmol/L (22.0-30.0); Chloride 87 mmol/L (98-107); Creatinine Clearance Estimated 35 mL/min (50-200); Estimated Glomerular Filt Rate 22 ml/min (>60); GFR (African American) 26 ML/MIN (>60); Glucose 165 mg/dl (74-100); Potassium 3.4 mmoL/L (3.5-5.1); Sodium 135 mmol/L (136-145)
[2021-06-07 18:33] LABS: Calcium 9.6 mg/dl (8.4-10.2)
--- NOTE | 2021-06-07 19:16 | PC.NURSE ---
Pt alert and oriented and able to make needs known. RR even and unlabored. Pt on RA to 2 L intermittently prn. CB in reach. VSS. Spoke with Dr. Herbert in RE to med changes- see his orders. Port to [place], and 18 in L AC - SL. Lungs cta, remains afib on tele, bs x4. Meds per jan. VSS.
[2021-06-08] VITALS: BP 118/62; PULSE 80; PULSE 82; RESP 17; TEMP 36.8; O2SAT 97
--- NOTE | 2021-06-08 03:48 | PC.NURSE ---
PT A&O. No c/o pain this shift. Lungs CTA, on 2L NC prn. Bowel sounds active x4, abd soft and nontender. Pt able to make needs known. IV patent. Port [place] patent. VSS, call light in reach, no concerns at this time.
[2021-06-08 03:51] VITALS: BP 98/54; PULSE 87; RESP 17; TEMP 36.6; O2SAT 95
[2021-06-08 04:00] VITALS: PULSE 90
[2021-06-08 05:00] VITALS: BMI 31.6
[2021-06-08 06:39] LABS: Basophils % 0.4 % (0.1-2.0); Eosinophils # 0.4 K/mm3 (0.0-0.4); Hemoglobin 9.8 g/dL (12.2-16.2); Lymphocytes # 0.7 K/mm3 (0.7-4.5); Mean Corpuscular HGB Conc 31.7 g/dL (31.8-35.4); Mean Corpuscular Hemoglobin 23.8 pg (27.0-31.2); Mean Corpuscular Volume 75.1 fl (81-99); Mean Platelet Volume 7.2 fl (7.4-10.4); Monocytes # 0.5 K/mm3 (0.1-1.0); Monocytes % 6.8 % (1.7-9.3); Neutrophils % 76.7 % (37.0-80.0); Platelet Count 259 K/mm3 (142-424); Red Blood Count 4.12 M/mm3 (4.20-5.40); Red Cell Distribution Width 18.7 % (11.5-17.5); White Blood Count 6.5 K/mm3 (4.8-10.8)
[2021-06-08 06:51] LABS: Prothrombin Time 23.2 seconds (10.1-12.5)
[2021-06-08 07:03] LABS: Alanine Aminotransferase 18 U/L (12-78); Albumin Level 4.5 g/dl (3.5-5.0); Albumin/Globulin Ratio 1.6 (1.1-1.8); Alkaline Phosphatase 113 U/L (38-126); Anion Gap 14.4 mEq/L (5-15); Aspartate Amino Transferase 32 U/L (14-36); Bilirubin,Total 0.8 mg/dl (0.2-1.3); Blood Urea Nitrogen 67 mg/dl (7-17); Calcium 9.3 mg/dl (8.4-10.2); Carbon Dioxide 37 mmol/L (22.0-30.0); Chloride 88 mmol/L (98-107); Creatinine Clearance Estimated 48 mL/min (50-200); Estimated Glomerular Filt Rate 31 ml/min (>60); GFR (African American) 37 ML/MIN (>60); Globulin 2.8 g/dL (1.3-3.2); Glucose 149 mg/dl (74-100); Magnesium 2.1 mg/dl (1.6-2.3); Potassium 3.4 mmoL/L (3.5-5.1); Sodium 136 mmol/L (136-145); Total Protein,Serum 7.3 g/dl (6.3-8.2)
[2021-06-08 07:09] LABS: INR 2.08 (0.9-1.1)
[2021-06-08 08:00] VITALS: BP 108/66; PULSE 81; RESP 18; TEMP 37; O2SAT 96
--- NOTE | 2021-06-08 08:33 | HMH.DCSUM ---
General - General Admission date:: 06/05/21 Discharge date: 06/08/21 HPI HPI: 56-year-old female with history of cardiorenal syndrome, Congestive heart failure, chronic kidney disease, chronic anemia, A. fib, on chronic anticoagulation who presented to the ER yesterday due to palpitations and shortness of breath. On arrival found to have low potassium, chest imaging of pulmonary edema, and concern for cardiomegaly. Admitted to medicine for electrolyte repletion and cardiology consult. On assessment this morning, reports she was recently admitted 10 days ago to for acute congestive heart failure with significant peripheral edema. Was started on diuretic daily with improvement in her shortness of breath and significant diuresis. Showed pictures of legs with 3+ pitting edema 2 weeks ago, no edema noted today on exam. Following from cardiology H&P: Cardiology consulted due to marked cardiomegaly noted on chest x-ray. Patient does have an implanted CardioMEMS device with recent mean PA readings in the 30 to 40 mmHg range. Despite taking supplemental potassium her potassium level was 2.4 yesterday with creatinine of 1.5 and BUN of 70. Hemoglobin noted to be 9.5 yesterday and 8.9 this morning for which patient will be receiving 1 unit of blood. After receiving IV Lasix yesterday she does feel a little bit better this morning but not back to her baseline. Echocardiogram was obtained earlier today and is essentially unchanged from 4 months ago. Mitral valve appears to be working appropriately with no change in her aortic insufficiency. Ejection fraction is still estimated around 45%. Patient does have chronic chest pain related to sternotomy incision. Hospital Course Hospital Course: Patient was admitted, cardiology evaluated her, made adjustments as noted, decided to transition from calcium channel blockade to valsartan. She initially tolerated this well, blood pressures however were soft the day before discharge and this was held. This morning she is feeling much better, blood pressures in the 108 range systolically. Potassium and kidney function have both improved and heading towards normal. This morning she is sitting up in a chair, eating breakfast he feels great with no edema. Plan will be as follows: 1. She will be discharged home today to resume spironolactone, Bumex and warfarin 5 mg/day which is slightly higher than her home dose given her low INR at home. 2. We will prescribe low-dose valsartan. She will pick this up tomorrow and start taking at home and we will follow with close blood pressure monitoring in our office in [place] on . I have ordered labs including INR, CBC and BMP to have done on June 10 or before her appointment on June 12. 3. She lives in [place] and is elected to pursue follow-up with our office on morning given the location, need for frequent evaluation and follow-up of her other internal medicine type problems. Appointment has been made. 4. I have asked her to follow-up with cardiology on Wednesday with Dr. Jacobsen, to continue ongoing medicine adjustment for heart failure. 5. Given her mechanical valve and need for aggressive yet tight control of INR she will be enrolled in our Coumadin clinic here-has never been enrolled in a Coumadin clinic before. Objective Vital signs: Temp Pulse Resp BP Pulse Ox 98.6 F 81 18 108/66 L 96 06/08/21 08:00 06/08/21 08:00 06/08/21 08:00 06/08/21 08:00 06/08/21 08:00 no acute distress - *Routine HEENT Exam Head: Present: normocephalic Eye: Present: EOMI, PERRL ENT: Present: mucous membranes moist - *Routine Neck Exam Present: supple - *Routine Respiratory Exam Present: CTA bilaterally - *Routine Cardiovascular Exam Present: RRR, click (Expected for mechanical valve) - *Routine Abdominal Exam Present: soft, normoactive bowel sounds. Absent: tenderness - *Routine Extre
== END 2021-06-08 10:56 | disposition home or self-care (01) ==
LOC: ER 19:38 → 2ND 20:21
PROVIDERS: Admitting Provider Internal Medicine Adolescent Medicine; Emergency Provider Emergency Medicine; PCP Internal Medicine; Visit Provider Internal Medicine Adolescent Medicine
DX: I50.23 Acute on chronic systolic (congestive) heart failure (principal); Z95.2 Presence of prosthetic heart valve; Z79.01 Long term (current) use of anticoagulants; Z79.4 Long term (current) use of insulin; E03.9 Hypothyroidism, unspecified; I48.20 Chronic atrial fibrillation, unspecified; N18.2 Chronic kidney disease, stage 2 (mild); I13.0 Hypertensive heart and chronic kidney disease with heart failure and stage 1 through stage 4 chronic kidney disease, or unspecified chronic kidney disease; E11.22 Type 2 diabetes mellitus with diabetic chronic kidney disease; Z88.8 Allergy status to other drugs, medicaments and biological substances; E87.6 Hypokalemia; J81.1 Chronic pulmonary edema; D64.9 Anemia, unspecified; Z20.822 Contact with and (suspected) exposure to COVID-19
CPT/HCPCS: 36415; 71045; 80048; 80053; 83036; 83735; 84100; 84443; 84484; 85014; 85018; 85025; 85378; 85610; 86850; 93005; 93306; 94760; 99284; G0378; P9016; U0003

== ENCOUNTER 2021-06-10 08:41 | Outpatient (CLI) | payer MEDICARE, BC, SELFPAY ==
[2021-06-10 15:57] LABS: PHA INR Fingerstick 2.5 (0.9-1.1)
== END 2021-06-10 16:33 | disposition home or self-care (01) ==
LOC: ACC 08:44
PROVIDERS: PCP Internal Medicine; Visit Provider Internal Medicine Adolescent Medicine
DX: Z51.81 Encounter for therapeutic drug level monitoring (principal); Z79.01 Long term (current) use of anticoagulants
CPT/HCPCS: 85610; 99211; G0463

== ENCOUNTER → 2021-06-19 13:11 | Outpatient (CLI) | payer MEDICARE, BC, SELFPAY ==
[2021-06-19 13:57] LABS: Prothrombin Time 25.6 seconds (10.1-12.5)
[2021-06-19 14:10] LABS: INR 2.31 (0.9-1.1)
== END ==
PROVIDERS: Internal Medicine Adolescent Medicine; PCP Internal Medicine Adolescent Medicine; Visit Provider Internal Medicine Adolescent Medicine
DX: Z51.81 Encounter for therapeutic drug level monitoring (principal); Z79.01 Long term (current) use of anticoagulants; Z95.2 Presence of prosthetic heart valve
CPT/HCPCS: 36415; 85610

== ENCOUNTER 2021-06-23 18:22 | Observation (INO) | payer MEDICARE, MEDICAID, SELFPAY ==
[2021-06-23] VITALS (8 sets, daily range): BP systolic 96–110; BP diastolic 44–75; PULSE 66–104; RESP 12–17; TEMP 36.6–36.8; O2SAT 94–99; BMI 34.3
--- NOTE | 2021-06-23 18:23 | ECG_ITS ---
APPROVED REPORT Exam: Resting ECG HR:79 bpm ECG Measurements Heart Rate 79 AXES QRSd 106 QRS 64 QT 438 T 79 QTc 502 Conclusion Atrial fibrillation Incomplete right bundle branch block Prolonged QT Abnormal ECG Electronically signed by : Reji Castro, 06/24/2021 08:23:19
--- NOTE | 2021-06-23 18:57 | XR_ITS ---
PROCEDURE INFORMATION: Exam: XR Chest Exam date and time: 06/23/21 06:57 PM Age: 56 years old Clinical indication: Pain; Other: Chest; Additional info: SOB, chest pain TECHNIQUE: Imaging protocol: XR of the chest. Views: 1 view. COMPARISON: CR XR CHEST PORTABLE 06/05/21 06:56 PM FINDINGS: Tubes, catheters and devices: Left subclavian MediPort catheter overlies the SVC. Lungs: Unremarkable. No consolidation. Pleural spaces: Unremarkable. No pleural effusion. No pneumothorax. Heart/Mediastinum: Cardiomegaly with mitral valve replacement. Bones/joints: Unremarkable. Other findings: No significant interval change since 06/05/2021. IMPRESSION: 1. Cardiomegaly with mitral valve replacement. 2. Left subclavian MediPort catheter overlies the SVC. 3. No significant interval change since 06/05/2021.
[2021-06-23 19:08] LABS: Basophils % 0.4 % (0.1-2.0); Eosinophils # 0.3 K/mm3 (0.0-0.4); Eosinophils % 4.4 % (0.1-12.0); Lymphocytes # 0.5 K/mm3 (0.7-4.5); Mean Corpuscular HGB Conc 31.8 g/dL (31.8-35.4); Mean Corpuscular Hemoglobin 24.3 pg (27.0-31.2); Mean Corpuscular Volume 76.3 fl (81-99); Mean Platelet Volume 7.6 fl (7.4-10.4); Monocytes # 0.3 K/mm3 (0.1-1.0); Monocytes % 3.8 % (1.7-9.3); Neutrophils # 6.3 K/mm3 (1.8-7.8); Neutrophils % 84.4 % (37.0-80.0); Platelet Count 242 K/mm3 (142-424); Red Blood Count 3.15 M/mm3 (4.20-5.40); Red Cell Distribution Width 19.2 % (11.5-17.5); White Blood Count 7.5 K/mm3 (4.8-10.8)
[2021-06-23 19:09] LABS: Chloride 102 mmol/L (98-107); Potassium 3.8 mmoL/L (3.5-5.1); Sodium 139 mmol/L (136-145)
[2021-06-23 19:10] LABS: Hemoglobin 7.6 g/dL (12.2-16.2)
--- NOTE | 2021-06-23 19:11 | PC.NURSE ---
Spoke with Ney in lab. Critical H&H reportedd of 7.6 and 24. Repeated and confirmed by this nurse.
[2021-06-23 19:12] LABS: Alanine Aminotransferase 16 U/L (12-78); Albumin/Globulin Ratio 1.5 (1.1-1.8); Alkaline Phosphatase 82 U/L (38-126); Aspartate Amino Transferase 27 U/L (14-36); Bilirubin,Total 0.5 mg/dl (0.2-1.3); Blood Urea Nitrogen 61 mg/dl (7-17); Creatinine Clearance Estimated 52 mL/min (50-200); Estimated Glomerular Filt Rate 31 ml/min (>60); GFR (African American) 37 ML/MIN (>60); Globulin 2.6 g/dL (1.3-3.2); Total Protein,Serum 6.6 g/dl (6.3-8.2)
[2021-06-23 19:13] LABS: Calcium 8.5 mg/dl (8.4-10.2); Glucose 129 mg/dl (74-100)
--- NOTE | 2021-06-23 19:17 | HMH.EDGENADL ---
ED Disposition Clinical Impression: Symptomatic anemia Volume overload Qualifiers: Hypervolemia type: unspecified Qualified Code(s): E87.70 - Fluid overload, unspecified Disposition: Admitted As Inpatient Condition on Discharge: Fair - Critical Care Critical Care Time: No Attestation: On 06/23/21, the high probability of a clinically significant, sudden or life threatening deterioration of the following system(s) required my full and direct attention, intervention and personal management. The time I documented below is in addition to time spent performing reported procedures but includes the following listed in this critical care notation. Medical Decision Making - Medical Records Medical records reviewed: Yes: I reviewed the patient's medical records. - Jeancarlos Inquiry Pt receiving controlled substance: No Vital Signs: 06/23/21 18:22 06/23/21 18:39 Temperature 98.3 F Temperature Source Oral Pulse Rate 79 Pulse Rate [Left] 82 Respiratory Rate 12 13 Blood Pressure 106/61 L Blood Pressure [Right Arm] 96/44 L Blood Pressure Mean [Right Arm] 61 Blood Pressure Source [Right Arm] Automatic Cuff Blood Pressure Position [Right Arm] Supine 02 Sat by Pulse Oximetry 99 94 L Oxygen Delivery Method Room Air - Lab Data Lab Results 06/23/21 18:35: WBC 7.5, RBC 3.15 L, Hgb 7.6 L*, Hct 24.0 L, MCV 76.3 L, MCH 24.3 L, MCHC 31.8, RDW 19.2 H, Plt Count 242, MPV 7.6, Neut % (Auto) 84.4 H, Lymph % (Auto) 7.0 L, Yell % (Auto) 3.8, Eos % (Auto) 4.4, Baso % (Auto) 0.4, Neut # (Auto) 6.3, Lymph # (Auto) 0.5 L, Yell # (Auto) 0.3, Eos # (Auto) 0.3, Baso # (Auto) 0.0 06/23/21 18:35: Sodium 139, Potassium 3.8, Chloride 102, Carbon Dioxide 28, BUN 61 H, Creatinine 1.70 H, Estimated Creat Clear 52, Estimated GFR 31 L, Est GFR ( Amer) 37 L, Glucose 129 H, Calcium 8.5, Total Bilirubin 0.5, AST 27, ALT 16, Alkaline Phosphatase 82, Troponin I < 0.01, Total Protein 6.6, Albumin 4.0, Globulin 2.6, Albumin/Globulin Ratio 1.5 06/23/21 19:15: Urine Color Yellow, Urine Appearance Clear, Urine pH 6.0, Ur Specific Yale 1.010, Urine Protein Negative, Urine Glucose (UA) Negative, Urine Ketones Negative, Urine Blood Negative, Urine Nitrate Negative, Urine Bilirubin Negative, Urine Urobilinogen 0.2, Ur Leukocyte Esterase Negative, Urine RBC None, Urine WBC None, Ur Squamous Epith Cells 5-10, Urine Bacteria None Result diagrams: 06/23/21 18:35 06/23/21 18:35 Orders (Tests/Meds): ORDERS Category Date Time Status Type and Screen Stat BBK 06/23/21 19:31 Received XR chest portable Stat Exams 06/23/21 18:57 Taken BNP [Brain Natriuretic Peptide] Stat Lab 06/23/21 18:35 Received Comprehensive Metabolic Panel Stat Lab 06/23/21 18:35 Results Troponin I Q3H Lab 06/23/21 22:00 Ordered Troponin I Q3H Lab 06/24/21 01:00 Ordered Troponin I Stat Lab 06/23/21 18:35 Results - ECG Data Tracing #1 ECG initial impression date: 06/23/21 ECG initial impression time: 18:25 Normal Sinus Rhythm: No Arrhythmias present: afib/aflutter - Physician Consults Physician Consulted: Juan Antonio Time: 19:40 Reason -: Admission Comment/Response: Okay to admit, transfuse 1 unit and give diuretics - LYDIA Score for Non-Stemi Age of Patient: 50-59 years old Heart Rate: 70-89 bpm Systolic Blood Pressure: 80-99 mmHg Serum Creatinine: 1.60-1.99 mg/dl CHF Killip Class: II-Pulmonary Rales or Jug Other Risk Factors: None Non-Stemi Risk Score: 136 - LYDIA Score for Stemi Age of Patient: 60-69 years old Heart Rate: 70-89 bpm Systolic Blood Pressure: 80-99 mmHg Serum Creatinine: 1.60-1.99 mg/dl CHF [place] Class: II-Pulmonary Rales or Jug Other Risk Factors: None Stemi Risk Score: 153 Medical Decision Narrative: Upon presentation, patient is hemodynamically stable but uncomfortable appearing. Patient presents with palpitations and chest pain. Patient has a history of hemolytic anemia and multiple cardiac surgeries. Differential diagnosis
[2021-06-23 19:20] LABS: Microscopic, Urine URINE MICROSCOPIC (MICROSCOPIC)
[2021-06-23 19:23] LABS: Appearance,Urine CLEAR (Clear); Bilirubin,Urine Negative (Negative); Blood, Urine Negative (Negative); Color,Urine YELLOW (Yellow); Glucose,Urine (UA) Negative (Negative); Ketones,Urine Negative (Negative); Leukocyte Esterase,Urine Negative (Negative); Nitrate,Urine Negative (Negative); Protein,Urine Negative (Negative); Urobilinogen,Urine 0.2 EU/dl (0.2)
[2021-06-23 19:28] LABS: Troponin I < 0.01 ng/ml (0.00-0.034)
--- NOTE | 2021-06-23 19:42 | PC.NURSE ---
riley cabral on phone with dr jaeger @ this time
[2021-06-23 20:10] LABS: NT Pro Brain Natriuretic Pep. 958 pg/mL (0-125)
[2021-06-23 20:47] LABS: Anion Gap 12.8 mEq/L (5-15); Carbon Dioxide 28 mmol/L (22.0-30.0)
--- NOTE | 2021-06-23 21:12 | PC.NURSE ---
patient up to floor via wheelchair.
[2021-06-23 23:32] LABS: Troponin I < 0.01 ng/ml (0.00-0.034)
[2021-06-24] VITALS (27 sets, daily range): BP systolic 90–120; BP diastolic 43–66; PULSE 50–90; RESP 16–20; TEMP 36.6–37; O2SAT 94–98; BMI 33.1
--- NOTE | 2021-06-24 00:42 | PC.NURSE ---
patient declined huddleston catheter at this time. verified with 2nd rn. hat in toilet.
[2021-06-24 01:27] LABS: Troponin I < 0.01 ng/ml (0.00-0.034)
[2021-06-24 03:13] LABS: Hematocrit 24.2 % (37.0-47.0)
--- NOTE | 2021-06-24 03:16 | PC.NURSE ---
CRITICAL HGB LEVEL CALLED BY HERO MOTA IN LAB. 7.5 R/V
[2021-06-24 03:17] LABS: Hemoglobin 7.5 g/dL (12.2-16.2)
--- NOTE | 2021-06-24 04:00 | PC.NURSE ---
PATIENT HAS BEEN VERY PLEASANT THIS SHIFT. NO ACUTE CHANGES. SHE REMAINS A&O X4. NEW IV IN RIGHT FOREARM DUE TO IMPLANTED PORT NOT ACCESSIBLE. ATTEMPTED BY RN X3. NO NEEDS. CALL APARICIO IN REACH
--- NOTE | 2021-06-24 07:38 | HMH.PHAVTE ---
[facility] Pharmacy VTE Monitoring - Patient Demographics Admission date: 06/23/21 Report Date: 06/24/21 Time: 07:38 Allergies/Adverse Reactions: Patient Allergies buprenorphine [From BUPRENEX] Allergy (Unknown, Verified 06/23/21 23:19) codeine [CODEINE] Allergy (Unknown, Verified 06/23/21 23:19) Corticosteroids (Glucocorticoids) [CORTICOSTEROIDS (GLUCOCORTICOIDS)] Allergy (Unknown, Verified 06/23/21 23:19) Iodinated Contrast Media [IODINATED CONTRAST- ORAL AND IV DYE] Allergy (Unknown, Verified 06/23/21 23:19) rosuvastatin [From CRESTOR] Allergy (Unknown, Verified 06/23/21 23:19) theophylline [From DAVID-DUR] Allergy (Unknown, Verified 06/23/21 23:19) prednisone Adverse Reaction (Verified 06/23/21 23:19) Height: 1.63 m Weight: 90.718 kg Patient Problems: Current Active Problems (Last Updated 07/03/20 @ 10:17 by Janette Barahona RN) Symptomatic anemia (Acute) Volume overload (Acute) - VTE Risk Labs: VTE Related Lab Results Hgb 7.5 g/dL (12.2-16.2) L* 06/24/21 03:00 Hct 24.2 % (37.0-47.0) L 06/24/21 03:00 Plt Count 242 K/mm3 (142-424) 06/23/21 18:35 BUN 61 mg/dl (7-17) H 06/23/21 18:35 Creatinine 1.70 mg/dl (0.52-1.04) H 06/23/21 18:35 Estimated Creat Clear 52 mL/min (50-200) 06/23/21 18:35 VTE Score: 6 VTE Risk Level: Moderate Risk - Prophylaxis VTE Prophylaxis Ordered?: Yes Types of VTE Prophylaxis: TEDS Knee High Location of Applied Device: Bilateral Lower Extremeties
--- NOTE | 2021-06-24 07:44 | HMH.HP ---
*Admission Date: 06/23/21 *Chief complaint: SOA, fatigue *History of present illness: Patient is a 56-year-old female with multiple medical problems including autoimmune hemolytic anemia, A. fib on blood thinner, presenting with palpitations and shortness of breath. States she began having chest discomfort and shortness of breath yesterday causing her to come to the ER for further assessment. Also complains of some diffuse abdominal discomfort. On arrival found to have [place] anemia. Review of labs shows worsening acute on chronic anemia. Given patient's underlying conditions, she was admitted for transfusion and further assessment. On assessment this morning, she has had an adequate response to blood cell transfusion. Getting a second unit on rounds this morning. Denies any chest pain or shortness of breath. Discusses most recent appointment with cardiology, some adjustments were made to her medications due to low blood pressure. Has unfortunately gained 15 pounds since last admission. Feels short of breath and is worried it is her heart or her kidneys. Reviewed imaging, echo, labs from last admission. Expressed concern to patient for acute worsening of her CHF and worsening of her anemia. Has responded well to diuretic overnight with proximately 800-1,000 mL of UOP and states she feels much better. [facility] History I have reviewed the patient's past medical history: Yes Medical History: Reports:: Atrial Fibrillation, Congestive Heart Failure, Chronic Obstructive Pulmonary Disease (COPD), Diabetes Mellitus Type 2, Gastroesophageal Reflux Disease(GERD), Hyperlipidemia, Hypertension Denies:: Cancer, Diabetes Mellitus Type 1, MRSA *Have you ever received a pneumonia vaccine?: Yes *Have you received a flu vaccine this season?: No Other Medical History: Reports: Anemia, Arthritis, Hypothyroidism, Thyroid Disease Other Surgeries: Yes: Hernia Repair, Tubal Ligation, Other (Mitral valve replacement.) Amputation: No Fractures: No - *Social History Last grade of school completed: Advanced degree Smoking Status: Former smoker Tobacco Type: cigarettes Alcohol Intake: never Substance Use Type: denies use *Occupational Status:: retired *Travel in the last 8 weeks: None Family Hx:: Anemia, Heart Attack, Hyperlipidemia, Hypertension, Kidney Disease, Mental illness Review of Systems - Review of Systems Review of systems:: pertinent systems reviewed and negative unless documented below (14 point review of systems performed, pertinent positives and negatives as per HPI) Meds Home Medications Medication Instructions Recorded Confirmed Type aspirin 81 mg tablet,delayed 81 mg PO DAILY 12/01/17 06/23/21 History release oxycodone-acetaminophen 10 mg-325 1 tab PO TIDP PRN tab 05/23/18 06/23/21 History mg tablet docusate sodium 100 mg capsule 100 mg PO TIDP PRN 02/22/19 06/24/21 History folic acid 1 mg tablet 1 mg PO DAILY 05/31/19 06/23/21 History alprazolam 0.5 mg tablet 0.5 mg PO TIDP PRN 11/29/19 06/23/21 History bumetanide 2 mg tablet 2 mg PO BID 07/03/20 06/23/21 History potassium chloride 10 mEq 20 meq PO DAILY tab 01/20/21 06/23/21 History tablet,extended release citalopram 40 mg tablet 40 mg PO DAILY tab 03/31/21 06/23/21 History famotidine 20 mg tablet 20 mg PO DAILY 04/22/21 06/23/21 History Levothyroxine Sodium [Synthroid 25 mcg PO DAILY 06/05/21 06/23/21 History 25mcg (0.025mg) tablet] Dexlansoprazole [Dexilant] 60 mg PO DAILY 06/06/21 06/23/21 History Ergocalciferol (Vitamin D2) 50,000 units PO MONTHLY 06/06/21 06/23/21 History [Drisdol 50,000 units (1.25mg) capsule] Insulin Glargine,Hum.rec.anlog 80 units SQ DAILY 06/06/21 06/23/21 History [Amanda Sellers] valsartan 80 mg tablet 40 mg PO DAILY tab 06/19/21 06/23/21 History Metoprolol Succinate [Metoprolol 25 mg PO HS 06/23/21 06/23/21 History Succinate 25mg Tablet*] Olopatadine HCl 1 drop OP DAILY 06/23/21 06/24/21 History Ondansetron [Zofran 4mg OD
--- NOTE | 2021-06-24 09:41 | HMH.CNCARD ---
History of Present Illness Consult date: 06/24/21 Requesting physician: Neptali Herbert Consult reason: congestive heart failure Chief complaint: SOA, CP Additional Medical History:: 1. Normal coronaries, 2017 2. CHF, recurrent (HFrEF) A. 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 3. HTN A. Echo, 06/06/2021, 1. Moderate biatrial enlargement, normal left ventricular size, mild concentric left ventricular hypertrophy, visually estimated ejection fraction 45%, there is abnormal septal motion. Diastolic parameters are inconclusive. 2. Thickened and calcified aortic valve with mild aortic stenosis, there is no significant aortic insufficiency. 3. Mechanical prosthetic valve in the mitral position, valve area is 2.4 cm, by pressure half-time, mean gradient across valve is 6.4 mmHg. There is no significant mitral regurgitation seen. 4. Moderate to severe tricuspid regurgitation, calculated right ventricular systolic pressure is 36 mmHg. 5. Inferior vena cava is mildly dilated without significant inspiratory collapse with 6. No significant pericardial effusion noted. Electronically signed by : Pedro Jacobsen, 06/06/2021 09:54:01 4. Chronic A. fib, on coumadin managed by PCP 5. History of [facility] mechanical MV replacement, 2005, [place], [place], Dr. Paul Castillo A. Echocardiogram, 06/06/2021,1. Moderate biatrial enlargement, normal left ventricular size, mild concentric left ventricular hypertrophy, visually estimated ejection fraction 45%, there is abnormal septal motion. Diastolic parameters are inconclusive. 2. Thickened and calcified aortic valve with mild aortic stenosis, there is no significant aortic insufficiency. 3. Mechanical prosthetic valve in the mitral position, valve area is 2.4 cm, by pressure half-time, mean gradient across valve is 6.4 mmHg. There is no significant mitral regurgitation seen. 4. Moderate to severe tricuspid regurgitation, calculated right ventricular systolic pressure is 36 mmHg. 5. Inferior vena cava is mildly dilated without significant inspiratory collapse with 6. No significant pericardial effusion noted. Electronically signed by : Pedro Jacobsen, 06/06/2021 09:54:01 6. DM, type 2, diagnosed 2005 7. GERD 8. COPD 9. History of multiple urologic procedures for urethral stricture 10. Cardiorenal syndrome, followed by nephrology A. Creatinine 1.7, GFR 31, creatinine clearance 52, 06/23/2021 11. Autoimmune iron deficiency hemolytic anemia A. Patient relates 170 units transfused in the past sometimes as often as every 3 weeks B. Indwelling PowerPort left chest C. Reportedly had prior bone marrow biopsy showing bone marrow functioning normally. Anemia related to spleen activity. History of present illness: 56-year-old white female with multiple medical problems as noted above was admitted through the ER for chest fullness and shortness of breath. Patient is known to have normal coronary arteries by cardiac catheterization in 2017 and all troponins this admission have returned normal. Patient does have recurrent admissions with need for transfusions due to anemia related to CKD, mechanical mitral valve for which she is on chronic Coumadin therapy and autoimmune hemolytic anemia. Hemoglobin this admission down to 7.5 grams per deciliter. Patient did receive 2 units of blood overnight along with IV Lasix after the first dose. She has diuresed 2L and is feeling somewhat better although she has not had any sleep and is tired. Patient was just seen in our office last week with medication changes including increase in spironolactone and switching her bisoprolol to metoprolol to attempt better control of her chest pain. Despite these changes patient's weight continued to increase as well as her symptoms. She relates her best dry weight is somewhere around 175 to 180 pounds (recently he
[2021-06-24 10:07] LABS: Basophils % 0.6 % (0.1-2.0); Eosinophils # 0.4 K/mm3 (0.0-0.4); Eosinophils % 6.8 % (0.1-12.0); Hematocrit 27.3 % (37.0-47.0); Lymphocytes # 0.6 K/mm3 (0.7-4.5); Lymphocytes % 11.8 % (10-50); Mean Corpuscular HGB Conc 31.7 g/dL (31.8-35.4); Mean Corpuscular Hemoglobin 24.5 pg (27.0-31.2); Mean Corpuscular Volume 77.3 fl (81-99); Mean Platelet Volume 8.2 fl (7.4-10.4); Monocytes # 0.3 K/mm3 (0.1-1.0); Monocytes % 6.2 % (1.7-9.3); Neutrophils # 3.8 K/mm3 (1.8-7.8); Neutrophils % 74.6 % (37.0-80.0); Platelet Count 229 K/mm3 (142-424); Red Blood Count 3.54 M/mm3 (4.20-5.40); Red Cell Distribution Width 18.4 % (11.5-17.5); White Blood Count 5.1 K/mm3 (4.8-10.8)
--- NOTE | 2021-06-24 10:09 | HMH.PHAINT ---
MEDICATION RECONCILIATION COMPLETED ON PATIENT USING EXTERNAL FILL HISTORY FROM PHARMACY AND LIST FROM CARDIOLOGY OFFICE. -TARYN RODRÍGUEZD
[2021-06-24 10:11] LABS: Chloride 98 mmol/L (98-107); Sodium 138 mmol/L (136-145)
[2021-06-24 10:14] LABS: Alanine Aminotransferase 17 U/L (12-78); Albumin Level 4.2 g/dl (3.5-5.0); Albumin/Globulin Ratio 1.6 (1.1-1.8); Alkaline Phosphatase 79 U/L (38-126); Aspartate Amino Transferase 24 U/L (14-36); Bilirubin,Total 0.5 mg/dl (0.2-1.3); Blood Urea Nitrogen 51 mg/dl (7-17); Carbon Dioxide 34 mmol/L (22.0-30.0); Creatinine Clearance Estimated 52 mL/min (50-200); Estimated Glomerular Filt Rate 31 ml/min (>60); GFR (African American) 37 ML/MIN (>60); Globulin 2.7 g/dL (1.3-3.2); Total Protein,Serum 6.9 g/dl (6.3-8.2)
[2021-06-24 10:15] LABS: Calcium 9.1 mg/dl (8.4-10.2); Glucose 147 mg/dl (74-100)
[2021-06-24 10:18] LABS: Prothrombin Time 22.4 seconds (10.1-12.5)
[2021-06-24 10:36] LABS: Hemoglobin 8.7 g/dL (12.2-16.2)
--- NOTE | 2021-06-24 18:48 | PC.NURSE ---
Addendum entered by Sandeep Jarrett RN 06/24/21 19:47: SHE HAS BEEN A FIB ON TELE WITH HR IN THE 75-85 RANGE Original Note: NO ACUTE CHANGES THIS SHIFT. SHE IS AOX4, ABLE TO MAKE NEEDS KNOWN TO STAFF, SHE MONITORS HER OWN BLOOD SUGAR WITH AN IMPLANTED PORT. SHE RECEIVED 1 UNIT PRBC'S AND TOLERATED WELL, SHE AMBULATES TO THE RESTROOM INDEPENDENTLY, SAFETY MEASURES IN PLACE.
[2021-06-25] VITALS: BP 107/63; PULSE 75; PULSE 82; RESP 18; TEMP 36.8; O2SAT 94
[2021-06-25 04:00] VITALS: BP 105/69; PULSE 80; PULSE 82; RESP 16; TEMP 36.4; O2SAT 93
--- NOTE | 2021-06-25 05:01 | PC.NURSE ---
pt has rested well throughout shift, no change from previous assessment, expiratory wheeze remains in right lower lobe of lung, pt remains in controlled afib on telemetry monitoring, bs x 4 quads, pt medicated x 1 for back pain and headache, pain medication was effective, pt has had good urine output, only minimal swelling noted to bilateral lower extremities, call light within reach will continue to monitor at this time
[2021-06-25 05:06] VITALS: BMI 32.9
--- NOTE | 2021-06-25 07:39 | HMH.DCSUM ---
General - General Admission date:: 06/23/21 Discharge date: 06/25/21 HPI HPI: Patient is a 56-year-old female with multiple medical problems including autoimmune hemolytic anemia, A. fib on blood thinner, presenting with palpitations and shortness of breath. States she began having chest discomfort and shortness of breath yesterday causing her to come to the ER for further assessment. Also complains of some diffuse abdominal discomfort. On arrival found to have [place] anemia. Review of labs shows worsening acute on chronic anemia. Given patient's underlying conditions, she was admitted for transfusion and further assessment. On assessment this morning, she has had an adequate response to blood cell transfusion. Getting a second unit on rounds this morning. Denies any chest pain or shortness of breath. Discusses most recent appointment with cardiology, some adjustments were made to her medications due to low blood pressure. Has unfortunately gained 15 pounds since last admission. Feels short of breath and is worried it is her heart or her kidneys. Reviewed imaging, echo, labs from last admission. Expressed concern to patient for acute worsening of her CHF and worsening of her anemia. Has responded well to diuretic overnight with proximately 800-1,000 mL of UOP and states she feels much better. Hospital Course Hospital Course: Patient was admitted, responded very well to diuresis and to transfusion. [place] much better. Cardiology evaluated her-consult appreciated-recommendations as noted below: Assessment and Plan for all problems:: 1. HFrEF, improved after blood transfusion and IV lasix. Recommend keeping Hgb >9.0. Resume bumex 2 mg BID along with spironolactone 50 mg on M, W, and 25 mg on all other days. [facility] appropriately by [facility] last month. Continue coumadin. 3. A. fib with CVR, on metoprolol and coumadin. 4. Cardiorenal syndrome, exacerbated by acute on chronic anemia. 5. CKD, stage 3, followed by Nephrology. 6. DM, defer to Dr. Herbert. Consider Farxiga for both better CHF and DM control. This morning patient was feeling much better, plan will be to discharge home today with Farxiga, Bumex and spironolactone as noted, close follow-up with us and with cardiology as scheduled. Objective Vital signs: Temp Pulse Resp BP Pulse Ox 97.5 F L 82 16 105/69 L 93 L 06/25/21 04:00 06/25/21 04:00 06/25/21 04:00 06/25/21 04:00 06/25/21 04:00 no acute distress - *Routine HEENT Exam Head: Present: normocephalic Eye: Present: EOMI, PERRL ENT: Present: mucous membranes moist - *Routine Neck Exam Present: supple - *Routine Respiratory Exam Present: CTA bilaterally - *Routine Cardiovascular Exam Present: RRR, murmur - *Routine Abdominal Exam Present: soft, normoactive bowel sounds. Absent: tenderness - *Routine Extremities Exam Absent: cyanosis, clubbing, edema - *Routine Skin Exam Present: warm. Absent: rash - Detailed Eye Exam Eyelids: Bilateral normal inspection Results Labs on day of discharge: Labs from last 24 hours 06/24/21 06/24/21 06/24/21 09:56 09:56 09:56 WBC 5.1 D RBC 3.54 L Hgb 8.7 L D Hct 27.3 L MCV 77.3 L MCH 24.5 L MCHC 31.7 L RDW 18.4 H Plt Count 229 MPV 8.2 Neut % (Auto) 74.6 Lymph % (Auto) 11.8 [place] % (Auto) 6.2 Eos % (Auto) 6.8 Baso % (Auto) 0.6 Neut # (Auto) 3.8 Lymph # (Auto) 0.6 L [place] # (Auto) 0.3 Eos # (Auto) 0.4 Baso # (Auto) 0.0 PT 22.4 H INR 2.00 H Sodium 138 Potassium 4.0 Chloride 98 Carbon Dioxide 34 H D Anion Gap 10.0 BUN 51 H Creatinine 1.70 H Estimated Creat Clear 52 Estimated GFR 31 L Est GFR ( Amer) 37 L Glucose 147 H Calcium 9.1 Total Bilirubin 0.5 AST 24 ALT 17 Alkaline Phosphatase 79 Total Protein 6.9 Albumin 4.2 Globulin 2.7 Albumin/Globulin Ratio
[2021-06-25 08:00] VITALS: BP 116/71; PULSE 79; PULSE 85; RESP 18; TEMP 37; O2SAT 96
--- NOTE | 2021-06-25 08:25 | P.PN_ITS ---
Subjective Date: 06/25/21 Time: 08:25 Principal diagnosis: anemia, CHF Interval history: 56-year-old white female in bed in no acute distress. States she feels better after the transfusion and diuresis. No complaints overnight. Plan is for discharge home today. Exam Vital signs and Labs for Last 24 Hours: Temp Pulse Resp BP Pulse Ox 97.5 F L 82 16 105/69 L 93 L 06/25/21 04:00 06/25/21 04:00 06/25/21 04:00 06/25/21 04:00 06/25/21 04:00 Laboratory Results - last 24 hr 06/23/21 19:31: Crossmatch (AHG) See Detail 06/24/21 09:56: WBC 5.1 D, RBC 3.54 L, Hgb 8.7 L D, Hct 27.3 L, MCV 77.3 L, MCH 24.5 L, MCHC 31.7 L, RDW 18.4 H, Plt Count 229, MPV 8.2, Neut % (Auto) 74.6, Lymph % (Auto) 11.8, [place] % (Auto) 6.2, Eos % (Auto) 6.8, Baso % (Auto) 0.6, Neut # (Auto) 3.8, Lymph # (Auto) 0.6 L, [place] # (Auto) 0.3, Eos # (Auto) 0.4, Baso # (Auto) 0.0 06/24/21 09:56: Sodium 138, Potassium 4.0, Chloride 98, Carbon Dioxide 34 H D, Anion Gap 10.0, BUN 51 H, Creatinine 1.70 H, Estimated Creat Clear 52, Estimated GFR 31 L, Est GFR ( Amer) 37 L, Glucose 147 H, Calcium 9.1, Total Bilirubin 0.5, AST 24, ALT 17, Alkaline Phosphatase 79, Total Protein 6.9, Albumin 4.2, Globulin 2.7, Albumin/Globulin Ratio 1.6 06/24/21 09:56: PT 22.4 H, INR 2.00 H I & O for Last 24 hours: Intake & Output 06/22/21 06/23/21 06/24/21 06/25/21 11:59 11:59 11:59 11:59 Intake Total 752.05 / 752.05 1200 / 1200 Output Total 900 / 900 4900 / 4900 Balance -147.95 / -147.95 -3700 / -3700 Weight 193 lb 4 oz 193 lb 1 oz - Constitutional no acute distress - *Routine HEENT Exam Head: Present: normocephalic Eye: Present: EOMI, PERRL ENT: Present: mucous membranes moist - *Routine Neck Exam Present: supple. Absent: lymphadenopathy - *Routine Respiratory Exam Present: CTA bilaterally - *Routine Cardiovascular Exam Present: click, irregularly irregular - *Routine Abdominal Exam Present: soft, normoactive bowel sounds. Absent: tenderness - *Routine Extremities Exam Absent: cyanosis, clubbing, edema - *Routine Skin Exam Present: warm. 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 Patient is improved from a cardiac standpoint. Again recommend continuing the patient's hemoglobin be maintained around 9 g/dL or more. Farxiga 10 mg daily was added to the patient's home regimen with samples given. Patient has a follow-up with Dr. Herbert next week. I have asked that she follow-up with Dr. HALEY in 2 weeks.
== END 2021-06-25 09:30 | disposition home or self-care (01) ==
LOC: ER 19:32 → 2ND 19:51
PROVIDERS: Admitting Provider Family Medicine; Emergency Provider Emergency Medicine; PCP Internal Medicine Adolescent Medicine; Visit Provider Internal Medicine Adolescent Medicine
DX: D59.9 Acquired hemolytic anemia, unspecified (principal); E11.22 Type 2 diabetes mellitus with diabetic chronic kidney disease; I48.20 Chronic atrial fibrillation, unspecified; E03.9 Hypothyroidism, unspecified; I13.0 Hypertensive heart and chronic kidney disease with heart failure and stage 1 through stage 4 chronic kidney disease, or unspecified chronic kidney disease; I50.23 Acute on chronic systolic (congestive) heart failure; E87.70 Fluid overload, unspecified; Z95.2 Presence of prosthetic heart valve; N18.30 Chronic kidney disease, stage 3 unspecified; Z79.01 Long term (current) use of anticoagulants; Z79.4 Long term (current) use of insulin; Z88.8 Allergy status to other drugs, medicaments and biological substances
CPT/HCPCS: G0378; 36415; 71045; 80053; 81001; 83880; 84484; 85014; 85018; 85025; 85610; 86850; 93005; 99282; J2405; P9016

== ENCOUNTER 2021-07-04 12:11 | Outpatient (CLI) | payer MEDICARE, MEDICAID, SELFPAY ==
[2021-07-04 13:59] LABS: PHA INR Fingerstick 2.9 (0.9-1.1)
== END 2021-07-04 14:01 | disposition home or self-care (01) ==
LOC: ACC 12:12
PROVIDERS: PCP Internal Medicine Adolescent Medicine; Visit Provider Internal Medicine Adolescent Medicine
DX: Z51.81 Encounter for therapeutic drug level monitoring (principal); Z79.01 Long term (current) use of anticoagulants; Z95.2 Presence of prosthetic heart valve
CPT/HCPCS: 85610; 99211; G0463

== ENCOUNTER 2021-07-09 19:20 | Inpatient (IN) | payer MEDICARE, MEDICAID, SELFPAY ==
[2021-07-09] VITALS (8 sets, daily range): BP systolic 98–140; BP diastolic 48–66; PULSE 80–98; RESP 14–23; TEMP 36.8–38.1; O2SAT 94–98; BMI 34.4; BMI 35.2
--- NOTE | 2021-07-09 19:09 | ECG_ITS ---
APPROVED REPORT Exam: Resting ECG HR:97 bpm ECG Measurements Heart Rate 97 AXES QRSd 98 QRS 98 QT 384 T 78 QTc 487 Conclusion Atrial fibrillation Rightward axis Low voltage QRS Incomplete right bundle branch block Prolonged QT Abnormal ECG Electronically signed by : Reji Castro MD 07/11/2021 12:06:13
--- NOTE | 2021-07-09 19:29 | XR_ITS ---
PROCEDURE INFORMATION: Exam: XR Chest Exam date and time: 07/09/2021 7:29 PM Age: 56 years old Clinical indication: Chest pressure; Prior surgery; Patient HX: Port wont flush, chest pain; Additional info: Cp, has port lcw that won't flush TECHNIQUE: Imaging protocol: XR of the chest. Views: 2 views. COMPARISON: CR XR CHEST PORTABLE 06/23/2021 7:19 PM FINDINGS: Tubes, catheters and devices: Left chest wall port catheter. Lungs: There is central vascular congestion with probable superimposed mild interstitial edema. Previously demonstrated hazy opacities in the bilateral perihilar regions appear less conspicuous. Pleural spaces: No pleural effusion. No pneumothorax. Heart/Mediastinum: Marked cardiomegaly, similar to prior study. Cardiac valve prosthesis and sternotomy wires again noted. Bones/joints: Spondylosis. IMPRESSION: 1. Decreased conspicuity of previously visualized bilateral perihilar hazy opacities. 2. Central vascular congestion with probable mild interstitial edema. 3. Marked cardiomegaly is unchanged.
[2021-07-09 19:51] LABS: Coronavirus 19, PCR Not Detected (NotDetected); Influenza A, PCR Not Detected (NotDetected); Influenza B, PCR Not Detected (NotDetected)
[2021-07-09 19:51] LABS: Microscopic, Urine URINE MICROSCOPIC (MICROSCOPIC)
[2021-07-09 19:55] LABS: Basophils % 0.3 % (0.1-2.0); Eosinophils # 0.2 K/mm3 (0.0-0.4); Eosinophils % 1.3 % (0.1-12.0); Hematocrit 24.5 % (37.0-47.0); Hemoglobin 7.7 g/dL (12.2-16.2); Lymphocytes # 0.3 K/mm3 (0.7-4.5); Lymphocytes % 2.2 % (10-50); Mean Corpuscular HGB Conc 31.3 g/dL (31.8-35.4); Mean Corpuscular Hemoglobin 23.7 pg (27.0-31.2); Mean Corpuscular Volume 75.8 fl (81-99); Mean Platelet Volume 7.5 fl (7.4-10.4); Monocytes # 0.6 K/mm3 (0.1-1.0); Monocytes % 4.3 % (1.7-9.3); Neutrophils # 12.6 K/mm3 (1.8-7.8); Neutrophils % 91.9 % (37.0-80.0); Platelet Count 244 K/mm3 (142-424); Red Blood Count 3.24 M/mm3 (4.20-5.40); Red Cell Distribution Width 17.9 % (11.5-17.5); White Blood Count 13.8 K/mm3 (4.8-10.8)
[2021-07-09 19:58] LABS: Appearance,Urine CLEAR (Clear); Bilirubin,Urine Negative (Negative); Blood, Urine Negative (Negative); Color,Urine YELLOW (Yellow); Glucose,Urine (UA) Negative (Negative); Ketones,Urine Negative (Negative); Leukocyte Esterase,Urine Negative (Negative); Nitrate,Urine Negative (Negative); Protein,Urine Negative (Negative); Specific Gravity, Urine 1.015 (1.005-1.030); Urobilinogen,Urine 0.2 EU/dl (0.2)
[2021-07-09 19:59] LABS: MANUAL DIFFERENTIAL MANUAL DIFFERENTIAL (MANUAL DIFF)
[2021-07-09 20:03] LABS: Alanine Aminotransferase 16 U/L (12-78); Albumin Level 4.4 g/dl (3.5-5.0); Alkaline Phosphatase 98 U/L (38-126); Anion Gap 15.2 mEq/L (5-15); Aspartate Amino Transferase 24 U/L (14-36); Bilirubin,Direct 0.6 mg/dl (0.0-0.4); Bilirubin,Total 0.6 mg/dl (0.2-1.3); Blood Urea Nitrogen 44 mg/dl (7-17); Calcium 8.9 mg/dl (8.4-10.2); Carbon Dioxide 29 mmol/L (22.0-30.0); Chloride 98 mmol/L (98-107); Creatinine Clearance Estimated 55 mL/min (50-200); Estimated Glomerular Filt Rate 33 ml/min (>60); GFR (African American) 40 ML/MIN (>60); Glucose 89 mg/dl (74-100); Magnesium 2.3 mg/dl (1.6-2.3); Potassium 4.2 mmoL/L (3.5-5.1); Sodium 138 mmol/L (136-145); Total Protein,Serum 7.1 g/dl (6.3-8.2)
[2021-07-09 20:08] LABS: C-Reactive Protein 12.9 mg/L (0-4)
[2021-07-09 20:09] LABS: Bacteria,Urine Trace /lpf
--- NOTE | 2021-07-09 20:10 | HMH.EDCP ---
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 with INR goal of 2.5-3.5, SIRS (systemic inflammatory response syndrome), History of mitral valve replacement with mechanical valve CKD (chronic kidney disease) stage 3, GFR 30-59 ml/min Qualifiers: Chronic kidney disease stage 3 subtype: stage 3a (GFR 45-59) Qualified Code(s): N18.31 - Chronic kidney disease, stage 3a Anemia Qualifiers: Iron deficiency anemia type: unspecified iron deficiency Disposition: Admitted as Observation Condition on Discharge: Good Referrals: Reji Castro MD [Primary Care Provider] - - Critical Care Critical Care Time: No Attestation: On 07/09/21, the high probability of a clinically significant, sudden or life threatening deterioration of the following system(s) required my full and direct attention, intervention and personal management. The time I documented below is in addition to time spent performing reported procedures but includes the following listed in this critical care notation. Medical Decision Making - Medical Records Medical records reviewed: Yes: I reviewed the patient's medical records. - Jeancarlos Inquiry Pt receiving controlled substance: No Vital Signs: 07/09/21 19:22 07/09/21 19:51 07/09/21 20:00 Temperature 100.5 F H Temperature Source Oral Pulse Rate 82 95 H Pulse Rate [Right] 98 H Respiratory Rate 23 Blood Pressure 107/48 L 117/66 Blood Pressure [Right Arm] 140/58 L Blood Pressure Mean [Right Arm] 85 Blood Pressure Source [Right Arm] Automatic Cuff 02 Sat by Pulse Oximetry 95 96 95 Oxygen Delivery Method Room Air Room Air Room Air 07/09/21 20:30 Temperature Temperature Source Pulse Rate 95 H Pulse Rate [Right] Respiratory Rate 14 Blood Pressure 101/53 L Blood Pressure [Right Arm] Blood Pressure Mean [Right Arm] Blood Pressure Source [Right Arm] 02 Sat by Pulse Oximetry 94 L Oxygen Delivery Method Room Air - Lab Data Lab results reviewed: Yes: I reviewed the patient's lab results. Lab Results 07/09/21 19:15: WBC 13.8 H, Corrected WBC 9.2, RBC 3.24 L, Hgb 7.7 L, Hct 24.5 L, MCV 75.8 L, MCH 23.7 L, MCHC 31.3 L, RDW 17.9 H, Plt Count 244, MPV 7.5, Neut % (Auto) 91.9 H, Lymph % (Auto) 2.2 L, [place] % (Auto) 4.3, Eos % (Auto) 1.3, Baso % (Auto) 0.3, Neut # (Auto) 12.6 H, Lymph # (Auto) 0.3 L, [place] # (Auto) 0.6, Eos # (Auto) 0.2, Baso # (Auto) 0.0, Total Counted 100, Neutrophils % (Manual) 94 H, Lymphocytes % (Manual) 2 L, Monocytes % (Manual) 2, Eosinophils % (Manual) 1, Basophils % (Manual) 1.0, Nucleated RBCs 50, Platelet Estimate Normal, Hypochromasia 2+, Anisocytosis 1+ 07/09/21 19:15: PT 28.5 H, INR 2.59 H 07/09/21 19:15: Sodium 138, Potassium 4.2, Chloride 98, Carbon Dioxide 29, Anion Gap 15.2 H, BUN 44 H, Creatinine 1.60 H, Estimated Creat Clear 55, Estimated GFR 33 L, Est GFR ( Amer) 40 L, Glucose 89, Calcium 8.9, Magnesium 2.3, Total Bilirubin 0.6, Direct Bilirubin 0.6 H, Conjugated Bilirubin 0.0, Indirect Bilirubin 0.0, Unconjugated Bilirubin 0.0, AST 24, ALT 16, Alkaline Phosphatase 98, Troponin I < 0.01, C-Reactive Protein 12.9 H, Total Protein 7.1, Albumin 4.4 07/09/21 19:15: ESR 87 H 07/09/21 19:27: SARS-CoV-2 (PCR) Not detected, Influenza A Untype (PCR) Not detected, Influenza Type B (PCR) Not detected 07/09/21 19:27: Procalcitonin 0.099 07/09/21 19:27: NT-Pro-B Natriuret Pep 1110 H, TSH 1.18, Thyroxine (T4) 10.8 07/09/21 19:33: Urine Color Yellow, Urine Appearance Clear, Urine pH 6.0, Ur Specific [place] 1.015, Urine Protein Negative, Urine Glucose (UA) Negative, Urine Ketones Negative, Urine Blood Negative, Urine Nitrate Negative, Urine Bilirubin Negative, Urine Urobilinogen 0.2, Ur Leukocyte Esterase Negative, Urine Bacteria Trace 07/09/21 20:12: Lactate 0.7 Result diagrams: 07/09/21 19:15 07/09/21 19:15 Orders (Tests/Meds): ED MEDICATIONS Generic Name Dose Route Start Last Admin Trade Name Freq PRN Re
[2021-07-09 20:12] LABS: Anisocytosis 1+; Eosinophils % 1 % (0-3); Lymphocytes % 2 % (10-50); Monocytes % 2 % (2-9); Neutrophils % 94 % (42-76); Platelet Estimate Normal; Total Cells Counted 100
[2021-07-09 20:13] LABS: Corrected White Blood Count 9.2 K/mm3 (4.8-10.8); Nucleated Red Blood Cells 50
[2021-07-09 20:14] LABS: Hypochromasia 2+
[2021-07-09 20:16] LABS: Prothrombin Time 28.5 seconds (10.1-12.5)
[2021-07-09 20:17] LABS: INR 2.59 (0.9-1.1)
[2021-07-09 20:19] LABS: Troponin I < 0.01 ng/ml (0.00-0.034)
[2021-07-09 20:23] LABS: Procalcitonin 0.099 ng/mL (0.0-2.0)
[2021-07-09 20:28] LABS: Erythrocyte Sedimentation Rate 87 mm/hr (0-30)
[2021-07-09 20:35] LABS: NT Pro Brain Natriuretic Pep. 1110 pg/mL (0-125)
[2021-07-09 20:43] LABS: T4 (Thyroxine) 10.8 ug/dl (5.53-11.0)
[2021-07-09 20:56] LABS: Thyroid Stimulating Hormone 1.18 uIU/mL (0.465-4.68)
[2021-07-09 20:56] LABS: Lactic Acid 0.7 mmol/L (0.7-2.1)
--- NOTE | 2021-07-09 21:09 | PC.NURSE ---
House notified of bed assignment
[2021-07-09 23:20] LABS: Troponin I < 0.01 ng/ml (0.00-0.034)
--- NOTE | 2021-07-09 23:44 | PC.NURSE ---
PT ARRIVED TO FLOOR VIA W/C FROM ED W/STAFF AT 0505
[2021-07-10] VITALS (29 sets, daily range): BP systolic 84–130; BP diastolic 31–77; PULSE 70–101; RESP 16–20; TEMP 36.7–37.5; O2SAT 90–100
[2021-07-10 02:03] LABS: Troponin I < 0.01 ng/ml (0.00-0.034)
--- NOTE | 2021-07-10 03:13 | PC.NURSE ---
A&OX4. TOLERATING RA WELL, AND NC PRN WHILE SLEEPING. PT HAS HAD NO C/O PAIN, NA, SOA THUS FAR. PT HAS SLEPT MAJORITY OF SHIFT. VSS WILL CONTINUE TO MONITOR.
[2021-07-10 05:09] LABS: POC Glucose,Bedside 104 (70-110)
[2021-07-10 07:08] LABS: Basophils % 0.1 % (0.1-2.0); Eosinophils # 0.1 K/mm3 (0.0-0.4); Eosinophils % 1.3 % (0.1-12.0); Hematocrit 21.8 % (37.0-47.0); Lymphocytes # 0.2 K/mm3 (0.7-4.5); Lymphocytes % 2.5 % (10-50); Mean Corpuscular HGB Conc 31.3 g/dL (31.8-35.4); Mean Corpuscular Hemoglobin 23.7 pg (27.0-31.2); Mean Corpuscular Volume 75.7 fl (81-99); Mean Platelet Volume 8.1 fl (7.4-10.4); Monocytes # 0.4 K/mm3 (0.1-1.0); Monocytes % 4.5 % (1.7-9.3); Neutrophils # 7.1 K/mm3 (1.8-7.8); Neutrophils % 91.6 % (37.0-80.0); Platelet Count 202 K/mm3 (142-424); Red Blood Count 2.87 M/mm3 (4.20-5.40); White Blood Count 7.7 K/mm3 (4.8-10.8)
[2021-07-10 07:18] LABS: Chloride 102 mmol/L (98-107); Potassium 4.4 mmoL/L (3.5-5.1); Sodium 138 mmol/L (136-145)
--- NOTE | 2021-07-10 07:19 | HMH.PHAVTE ---
[facility] Pharmacy VTE Monitoring - Patient Demographics Admission date: 07/09/21 Report Date: 07/10/21 Time: 07:19 Allergies/Adverse Reactions: Patient Allergies buprenorphine [From BUPRENEX] Allergy (Unknown, Verified 07/04/21 11:07) codeine [CODEINE] Allergy (Unknown, Verified 07/04/21 11:07) Corticosteroids (Glucocorticoids) [CORTICOSTEROIDS (GLUCOCORTICOIDS)] Allergy (Unknown, Verified 07/04/21 11:07) Iodinated Contrast Media [IODINATED CONTRAST- ORAL AND IV DYE] Allergy (Unknown, Verified 07/04/21 11:07) rosuvastatin [From CRESTOR] Allergy (Unknown, Verified 07/04/21 11:07) theophylline [From DAVID-DUR] Allergy (Unknown, Verified 07/04/21 11:07) prednisone Adverse Reaction (Verified 07/04/21 11:07) Height: 1.63 m Weight: 93.5 kg Patient Problems: Current Active Problems CKD (chronic kidney disease) stage 3, GFR 30-59 ml/min (Acute) Febrile illness, acute (Acute) SIRS (systemic inflammatory response syndrome) (Acute) Anemia (Acute) half-way current use of anticoagulants with INR goal of 2.5-3.5 (Chronic) History of mitral valve replacement with mechanical valve (Chronic) - VTE Risk Labs: VTE Related Lab Results Hgb 7.7 g/dL (12.2-16.2) L 07/09/21 19:15 Hct 24.5 % (37.0-47.0) L 07/09/21 19:15 Plt Count 244 K/mm3 (142-424) 07/09/21 19:15 PT 28.5 seconds (10.1-12.5) H 07/09/21 19:15 INR 2.59 (0.9-1.1) H 07/09/21 19:15 BUN 44 mg/dl (7-17) H 07/09/21 19:15 Creatinine 1.60 mg/dl (0.52-1.04) H 07/09/21 19:15 Estimated Creat Clear 55 mL/min (50-200) 07/09/21 19:15 Was VTE Risk Assessment Performed: Yes VTE Score: 8 VTE Risk Level: Moderate Risk Clinical Trial Participant: No - Prophylaxis VTE Prophylaxis Ordered?: Yes Types of VTE Prophylaxis: TEDS Knee High
[2021-07-10 07:21] LABS: Anion Gap 11.4 mEq/L (5-15); Blood Urea Nitrogen 37 mg/dl (7-17); Calcium 8.6 mg/dl (8.4-10.2); Carbon Dioxide 29 mmol/L (22.0-30.0); Creatinine Clearance Estimated 57 mL/min (50-200); Estimated Glomerular Filt Rate 33 ml/min (>60); GFR (African American) 40 ML/MIN (>60); Glucose 109 mg/dl (74-100); Magnesium 2.1 mg/dl (1.6-2.3)
[2021-07-10 07:39] LABS: Hemoglobin 6.8 g/dL (12.2-16.2)
[2021-07-10 07:44] LABS: MANUAL DIFFERENTIAL MANUAL DIFFERENTIAL (MANUAL DIFF)
--- NOTE | 2021-07-10 07:44 | PC.NURSE ---
verfied with shoshana in lab patient name and date of . critical hgb of 6.8 which was reported to
[2021-07-10 07:59] LABS: Anisocytosis 1+; Hypochromasia 1+; Lymphocytes % 5 % (10-50); Monocytes % 2 % (2-9); Neutrophils % 91 % (42-76); Platelet Estimate Normal; Total Cells Counted 100
--- NOTE | 2021-07-10 09:19 | HMH.HP ---
*Admission Date: 07/09/21 *Chief complaint: Fever and chest pain *History of present illness: 56-year-old female, history of autoimmune hemolytic anemia and cardiomyopathy secondary to above and chronic anemia and ischemic disease, who was at her oncologist office yesterday and her port access was attempted multiple times with lots of manipulation. This caused her a little bit of chest pain, and on her arrival home she began to have a lot of anterior and back oriented chest pain and developed fever and chills and body aches. Presented to the emergency department. She met criteria for sepsis with high fever, tachycardia and inflammatory markers. Chest x-ray and white count were normal, urinalysis was normal, blood cultures were done. Given criteria for sepsis she was admitted for Levaquin therapy, further culture monitoring and troponin trending. This morning she feels achy, like she has the flu and has a little bit of chest pain when she takes a deep breath. [facility] History I have reviewed the patient's past medical history: Yes Medical History: Reports:: Arrhythmia, Atrial Fibrillation, Cardiomyopathy, Congestive Heart Failure, Chronic Obstructive Pulmonary Disease (COPD), Congenital Heart Disease, Deep Vein Thrombosis, Diabetes Mellitus Type 2, Gastroesophageal Reflux Disease(GERD), Hyperlipidemia, Hypertension Denies:: Cancer, Diabetes Mellitus Type 1, MRSA *Have you ever received a pneumonia vaccine?: Yes *Have you received a flu vaccine this season?: Yes Other Medical History: Reports: Anemia, Arthritis, Blood Transfusion Reaction (NEEDS PREMEDICATED), Hypothyroidism, Liver Disease, Sinus Problems, Thyroid Disease Other Surgeries: Yes: Cardiac Catheterization, Hernia Repair, Tubal Ligation, Other (Mitral valve replacement.) Amputation: No Fractures: No - *Social History Last grade of school completed: Advanced degree Smoking Status: Former smoker Tobacco Type: cigarettes Alcohol Intake: never Substance Use Type: denies use *Occupational Status:: disabled Household Members: none *Travel in the last 8 weeks: None Family Hx:: Anemia, Heart Attack, Hyperlipidemia, Hypertension, Kidney Disease, Mental illness Review of Systems - Review of Systems Review of systems:: pertinent systems reviewed and negative unless documented below - *Neurologic Denies seizure-like activity Meds Home Medications Medication Instructions Recorded Confirmed Type aspirin 81 mg tablet,delayed 81 mg PO DAILY 12/01/17 07/09/21 History release oxycodone-acetaminophen 10 mg-325 1 tab PO TIDP PRN tab 05/23/18 07/09/21 History mg tablet docusate sodium 100 mg capsule 100 mg PO TIDP PRN 02/22/19 07/09/21 History folic acid 1 mg tablet 1 mg PO DAILY 05/31/19 07/09/21 History alprazolam 0.5 mg tablet 0.5 mg PO TIDP PRN 11/29/19 07/09/21 History bumetanide 2 mg tablet 2 mg PO BID 07/03/20 07/10/21 History citalopram 40 mg tablet 40 mg PO DAILY tab 03/31/21 07/09/21 History famotidine 20 mg tablet 20 mg PO DAILY 04/22/21 07/04/21 History Levothyroxine Sodium [Synthroid 25 mcg PO DAILY 06/05/21 07/09/21 History 25mcg (0.025mg) tablet] Dexlansoprazole [Dexilant] 60 mg PO DAILY 06/06/21 07/09/21 History Ergocalciferol (Vitamin D2) 50,000 units PO MONTHLY 06/06/21 07/09/21 History [Drisdol 50,000 units (1.25mg) capsule] Insulin Glargine,Hum.rec.anlog 80 units SQ DAILY 06/06/21 07/09/21 History [Amanda Sellers] valsartan 80 mg tablet 80 mg PO DAILY tab 06/19/21 07/10/21 History Metoprolol Succinate [Metoprolol 25 mg PO DAILY 06/23/21 07/10/21 History Succinate 25mg Tablet*] Olopatadine HCl 1 drp OU DAILY 06/23/21 07/10/21 History Ondansetron [Zofran 4mg ODT] 4 mg PO Q8HP PRN 06/23/21 07/09/21 History Spironolactone [Spironolactone 25 mg PO DIRECTED 06/23/21 07/09/21 History 25mg Tablet] Warfarin Sodium 5 mg PO DIRECTED 06/24/21 07/09/21 History Dapagliflozin Propanediol [Farxiga] 10 mg PO DAILY 07/09/21 07/09/21 History
--- NOTE | 2021-07-10 09:35 | HMH.PHAINT ---
MEDICATION RECONCILIATION COMPLETED USING PHARMACY FILL HISTORY AND PATIENT INTERVIEW.
[2021-07-10 11:03] LABS: Adenovirus,PCR Not Detected (NotDetected); Bordetella Pertussis Not Detected (NotDetected); Chlamydophila Pneumoniae, PCR Not Detected (NotDetected); Coronavirus 229E Not Detected (NotDetected); Coronavirus NL63 Not Detected (NotDetected); Coronavirus OC43 Not Detected (NotDetected); Coronovirus HKU1,PCR Not Detected (NotDetected); Human Metapneumovirus Not Detected (NotDetected); Influenza A, PCR Not Detected (NotDetected); Influenza AH1, 2009 Not Detected (NotDetected); Influenza AH1, PCR Not Detected (NotDetected); Influenza AH3,PCR Not Detected (NotDetected); Influenza B, PCR Not Detected (NotDetected); Mycoplasma Pneumoniae, PCR Not Detected (NotDetected); Parainfluenza 1, PCR Not Detected (NotDetected); Parainfluenza 2, PCR Not Detected (NotDetected); Parainfluenza 3, PCR Not Detected (NotDetected); Parainfluenza 4, PCR Not Detected (NotDetected); Respiratory Syncytial Virus Not Detected (NotDetected); Rhinovirus/Enterovirus Not Detected (NotDetected)
--- NOTE | 2021-07-10 15:03 | PC.NURSE ---
patient has done okay this shift. some low bps, that patient states is usual for her. humidification added to oxygen per her request. per md medicated with 25mg benadryl and 650mg tylenol before blood and given iv lasix 40mg in between units. has tolerated first unit well. vitals have been stable. on 2 l nc. independent in room. no appetite. rings out as needed.
[2021-07-10 17:01] LABS: POC Glucose,Bedside 98 (70-110)
[2021-07-10 17:02] LABS: POC Glucose,Bedside 98 (70-110)
--- NOTE | 2021-07-10 19:46 | PC.NURSE ---
Patient picked up from Naye connor at roughly 1600. Patient has been getting a blood transfusion during the evening and has tolerated it well with no c/o pain. Patient is alert and oriented x 4, on 2l nc as needed, patients blood glucose was less than 100 at 1600 so coverage was not needed. Patient has been eating well and tolerating food without nausea. Patient voices no complaints. At roughly 1915 lab called with blood culture results and indicated that patient has methicillin resistant staphylococcus. , call for , was notified. Orders were received to begin patient on Vancomycin. [facility] notified. Ordered received.
[2021-07-11] VITALS: BP 132/67; PULSE 68; PULSE 80; RESP 17; TEMP 37; O2SAT 96
[2021-07-11 01:18] LABS: POC Glucose,Bedside 89 (70-110)
--- NOTE | 2021-07-11 02:48 | PC.NURSE ---
Patient is alert and oriented x4. Patient has had no acute changes this shift. She has rested on and off this shift. She ambulates independently. Vitals have been stable, will continue to monitor, call light within reach.
[2021-07-11 04:00] VITALS: BP 92/47; PULSE 90; PULSE 92; RESP 18; TEMP 36.9; O2SAT 100
[2021-07-11 05:23] VITALS: BMI 35.2
[2021-07-11 06:35] LABS: POC Glucose,Bedside 73 (70-110)
[2021-07-11 07:05] LABS: Basophils % 0.4 % (0.1-2.0); Eosinophils # 0.1 K/mm3 (0.0-0.4); Hematocrit 26.3 % (37.0-47.0); Lymphocytes # 0.3 K/mm3 (0.7-4.5); Lymphocytes % 4.1 % (10-50); Mean Corpuscular HGB Conc 31.9 g/dL (31.8-35.4); Mean Corpuscular Hemoglobin 24.9 pg (27.0-31.2); Mean Corpuscular Volume 78.1 fl (81-99); Mean Platelet Volume 7.8 fl (7.4-10.4); Monocytes # 0.4 K/mm3 (0.1-1.0); Monocytes % 5.5 % (1.7-9.3); Platelet Count 182 K/mm3 (142-424); Red Blood Count 3.36 M/mm3 (4.20-5.40); Red Cell Distribution Width 18.2 % (11.5-17.5); White Blood Count 6.8 K/mm3 (4.8-10.8)
[2021-07-11 07:09] LABS: Prothrombin Time 32.1 seconds (10.1-12.5)
[2021-07-11 07:11] LABS: INR 2.95 (0.9-1.1)
[2021-07-11 07:39] LABS: Hemoglobin 8.4 g/dL (12.2-16.2); MANUAL DIFFERENTIAL MANUAL DIFFERENTIAL (MANUAL DIFF)
[2021-07-11 08:00] VITALS: BP 111/76; RESP 18; TEMP 37.2; O2SAT 94; O2SAT 98
[2021-07-11 08:09] LABS: Chloride 98 mmol/L (98-107); Potassium 4.2 mmoL/L (3.5-5.1); Sodium 137 mmol/L (136-145)
[2021-07-11 08:12] LABS: Blood Urea Nitrogen 32 mg/dl (7-17); Creatinine Clearance Estimated 50 mL/min (50-200); Estimated Glomerular Filt Rate 29 ml/min (>60); GFR (African American) 35 ML/MIN (>60)
--- NOTE | 2021-07-11 08:12 | ECG_ITS ---
APPROVED REPORT Exam: Resting ECG HR:97 bpm ECG Measurements Heart Rate 97 AXES QRSd 100 QRS 95 QT 366 T 75 QTc 464 Conclusion Atrial fibrillation Rightward axis Low voltage QRS Incomplete right bundle branch block Cannot rule out Anterior infarct, age undetermined Abnormal ECG Electronically signed by : Reji Castro MD 07/11/2021 12:02:02
[2021-07-11 08:13] LABS: Anion Gap 14.2 mEq/L (5-15); Calcium 8.6 mg/dl (8.4-10.2); Carbon Dioxide 29 mmol/L (22.0-30.0); Glucose 79 mg/dl (74-100)
[2021-07-11 08:40] LABS: Anisocytosis 1+; Eosinophils % 2 % (0-3); Hypochromasia 1+; Lymphocytes % 5 % (10-50); Microcytosis 1+; Monocytes % 4 % (2-9); Neutrophils % 84 % (42-76); Platelet Estimate Normal; Poikilocytosis 1+; Stomatocytes 1+; Total Cells Counted 100
--- NOTE | 2021-07-11 08:44 | HMH.PHACONS ---
- Pharmacy Consult Date: 07/11/21 Time: 08:44 Referring provider: PAL Reason for Consult:: VANCOMYCIN THERAPY MANAGEMENT Allergies and ADEs:: Allergies Allergy/AdvReac Type Severity Reaction Status Date / Time buprenorphine [From BUPRENEX] Allergy Unknown Verified 07/04/21 11:07 codeine [CODEINE] Allergy Unknown Verified 07/04/21 11:07 Corticosteroids Allergy Unknown Verified 07/04/21 11:07 (Glucocorticoids) [CORTICOSTEROIDS (GLUCOCORTICOIDS)] Iodinated Contrast Media Allergy Unknown Verified 07/04/21 11:07 [IODINATED CONTRAST- ORAL AND IV DYE] rosuvastatin [From CRESTOR] Allergy Unknown Verified 07/04/21 11:07 theophylline [From DAVID-DUR] Allergy Unknown Verified 07/04/21 11:07 prednisone AdvReac Verified 07/04/21 11:07 Home Medications:: Home Medications Medication Instructions Recorded Confirmed Type aspirin 81 mg tablet,delayed 81 mg PO DAILY 12/01/17 07/10/21 History release oxycodone-acetaminophen 10 mg-325 1 tab PO TIDP PRN tab 05/23/18 07/09/21 History mg tablet folic acid 1 mg tablet 1 mg PO DAILY 05/31/19 07/09/21 History alprazolam 0.5 mg tablet 0.5 mg PO TIDP PRN 11/29/19 07/09/21 History bumetanide 2 mg tablet 2 mg PO BID 07/03/20 07/10/21 History citalopram 40 mg tablet 40 mg PO DAILY tab 03/31/21 07/09/21 History famotidine 20 mg tablet 20 mg PO DAILY 04/22/21 07/10/21 History Levothyroxine Sodium [Synthroid 25 mcg PO DAILY 06/05/21 07/09/21 History 25mcg (0.025mg) tablet] Dexlansoprazole [Dexilant] 60 mg PO DAILY 06/06/21 07/09/21 History Ergocalciferol (Vitamin D2) 50,000 units PO MONTHLY 06/06/21 07/09/21 History [Drisdol 50,000 units (1.25mg) capsule] Insulin Glargine,Hum.rec.anlog 80 units SQ DAILY 06/06/21 07/09/21 History [Amanda Sellers] valsartan 80 mg tablet 80 mg PO DAILY tab 06/19/21 07/10/21 History Metoprolol Succinate [Metoprolol 25 mg PO DAILY 06/23/21 07/10/21 History Succinate 25mg Tablet*] Olopatadine HCl 1 drp OU DAILY 06/23/21 07/10/21 History Ondansetron [Zofran 4mg ODT] 4 mg PO Q8HP PRN 06/23/21 07/09/21 History Spironolactone [Spironolactone 25 mg PO DIRECTED 06/23/21 07/09/21 History 25mg Tablet] Warfarin Sodium 5 mg PO DIRECTED 06/24/21 07/09/21 History Dapagliflozin Propanediol [Farxiga] 10 mg PO DAILY 07/09/21 07/10/21 History Inulin/Chromium Picolinate [Fiber 1 each PO DAILY PRN 07/10/21 07/10/21 History Gummies] Potassium Chloride [Klor-con 20 20 meq PO DAILY 07/10/21 07/10/21 History mEq tablet] Pyridoxine HCl (Vitamin B6) 250 mg PO DAILY 07/10/21 07/10/21 History [Vitamin B-6] Height: 1.63 m Weight: 93.44 kg Laboratory Results:: Laboratory Results - last 24 hr 07/10/21 08:39: Blood Type O Positive, Antibody Screen Negative, Crossmatch (AHG) See Detail 07/10/21 10:55: Chlamy pneumoniae PCR Not detected, Adenovirus (PCR) Not detected, B. pertussis DNA (PCR) Not detected, Coronavirus OC43 (PCR) Not detected, Coronavirus HKU1 (PCR) Not detected, Coronavirus 229E (PCR) Not detected, Coronavirus NL63 (PCR) Not detected, Human Metapneumovir PCR Not detected, Influenza A (H1) PCR Not detected, Influ A (H1N1/09) PCR Not detected, Influenza A (H3) PCR Not detected, Influenza Type A (PCR) Not detected, Influenza Type B (PCR) Not detected, M. pneumoniae (PCR) Not detected, Parainfluenza 1 (PCR) Not detected, Parainfluenza 2 (PCR) Not detected, Parainfluenza 3 (PCR) Not detected, Parainfluenza 4 (PCR) Not detected, RSV (PCR) Not detected, Entero/Rhino (PCR) Not detected 07/10/21 11:32: POC Glucose 98 07/10/21 16:45: POC Glucose 98 07/10/21 20:39: POC Glucose 89 07/11/21 06:19: PT 32.1 H, INR 2.95 H 07/11/21 06:19: WBC 6.8, RBC 3.36 L, Hgb 8.4 L D, Hct 26.3 L, MCV 78.1 L, MCH 24.9 L, MCHC 31.9, RDW 18.2 H, Plt Count 182, MPV 7.8, Neut % (Auto) 88.0 H, Lymph % (Auto) 4.1 L, [place] % (Auto) 5.5, Eos % (Auto) 2.0, Baso % (Auto) 0.4, Neut # (Auto) 6.0, Lymph # (Auto) 0.3 L, [place] # (Auto) 0.4, Eo
--- NOTE | 2021-07-11 08:53 | HMH.ACPN2 ---
Internal Medicine - PN: Subj *Date: 07/11/21 *Time: 17:31 Interval history: Continues to complain of polyarthralgia, headache. This morning flipped into A. fib with RVR. EKG obtained on rounds, consistent with A. fib with RVR. Denies chest pain. Oxygen requirement stable. No nausea or vomiting. Patient quite anxious and concerned she has endocarditis on her valve because of her port dysfunction question for you in regard to port dysfunction handle port dysfunction port flushing or drawing. Patient appears mildly anxious this morning. Of note, blood cultures returned positive last night (1 bottle). On appropriate coverage at this time with broad-spectrum antibiotics. Additionally received her transfusion, labs this morning showed appropriate response and improvement in hemoglobin. Exam Vital signs and Labs for Last 24 Hours: Temp Pulse Resp BP Pulse Ox 98.4 F 92 H 18 92/47 L 100 07/11/21 04:00 07/11/21 04:00 07/11/21 04:00 07/11/21 04:00 07/11/21 04:00 Laboratory Results - last 24 hr 07/10/21 08:39: Blood Type O Positive, Antibody Screen Negative, Crossmatch (AHG) See Detail 07/10/21 10:55: Chlamy pneumoniae PCR Not detected, Adenovirus (PCR) Not detected, B. pertussis DNA (PCR) Not detected, Coronavirus OC43 (PCR) Not detected, Coronavirus HKU1 (PCR) Not detected, Coronavirus 229E (PCR) Not detected, Coronavirus NL63 (PCR) Not detected, Human Metapneumovir PCR Not detected, Influenza A (H1) PCR Not detected, Influ A (H1N1/09) PCR Not detected, Influenza A (H3) PCR Not detected, Influenza Type A (PCR) Not detected, Influenza Type B (PCR) Not detected, M. pneumoniae (PCR) Not detected, Parainfluenza 1 (PCR) Not detected, Parainfluenza 2 (PCR) Not detected, Parainfluenza 3 (PCR) Not detected, Parainfluenza 4 (PCR) Not detected, RSV (PCR) Not detected, Entero/Rhino (PCR) Not detected 07/10/21 11:32: POC Glucose 98 07/10/21 16:45: POC Glucose 98 07/10/21 20:39: POC Glucose 89 07/11/21 06:19: PT 32.1 H, INR 2.95 H 07/11/21 06:19: WBC 6.8, RBC 3.36 L, Hgb 8.4 L D, Hct 26.3 L, MCV 78.1 L, MCH 24.9 L, MCHC 31.9, RDW 18.2 H, Plt Count 182, MPV 7.8, Neut % (Auto) 88.0 H, Lymph % (Auto) 4.1 L, [place] % (Auto) 5.5, Eos % (Auto) 2.0, Baso % (Auto) 0.4, Neut # (Auto) 6.0, Lymph # (Auto) 0.3 L, [place] # (Auto) 0.4, Eos # (Auto) 0.1, Baso # (Auto) 0.0, Total Counted 100, Neutrophils % (Manual) 84 H, Band Neutrophils % 2.0, Lymphocytes % (Manual) 5 L, Monocytes % (Manual) 4, Eosinophils % (Manual) 2, Metamyelocytes % 3.0 H, Platelet Estimate Normal, RBC Morphology Not Reportable, Hypochromasia 1+, Poikilocytosis 1+, Anisocytosis 1+, Microcytosis 1+, Stomatocytes 1+ 07/11/21 06:19: Sodium 137, Potassium 4.2, Chloride 98, Carbon Dioxide 29, Anion Gap 14.2, BUN 32 H, Creatinine 1.80 H, Estimated Creat Clear 50, Estimated GFR 29 L, Est GFR ( Amer) 35 L, Glucose 79 D, Calcium 8.6 07/11/21 06:26: POC Glucose 73 I & O for Last 24 hours: Intake & Output 07/08/21 07/09/21 07/10/21 07/11/21 23:59 23:59 23:59 23:59 Intake Total 1100 / 1512 1822 / 1822 992 / 992 Balance 1100 / 1512 1821 / 182 992 / 992 Weight 93.5 kg 93.44 kg Microbiology Reports for the Last 24 Hours: Microbiology 07/09/21 20:12 Blood Blood Culture - Preliminary Narrative: - Constitutional minimal distress, chronically ill appearing - *Routine HEENT Exam Head: Present: normocephalic Eye: Present: EOMI, PERRL ENT: Present: mucous membranes moist - *Routine Neck Exam Present: supple. Absent: lymphadenopathy - *Routine Respiratory Exam Present: CTA bilaterally - *Routine Cardiovascular Exam Present: irregularly irregular, tachycardia - *Routine Abdominal Exam Present: soft, normoactive bowel sounds. No tenderness - *Routine Extremities Exam Absent: cyanosis, clubbing, edema; no erythema or warmth of knees, ankles, elbows. - *Routine Skin Exam Present: warm. Absent: rash - *Routine Neurological Exam Present: alert, oriented X
[2021-07-11 09:48] VITALS: BMI 34.9
[2021-07-11 16:00] VITALS: BP 106/56; PULSE 89; PULSE 97; RESP 21; TEMP 37.1; O2SAT 98
[2021-07-11 20:00] VITALS: BP 106/68; PULSE 100; PULSE 102; RESP 20; TEMP 36.9; O2SAT 95
[2021-07-11 20:44] VITALS: O2SAT 86
--- NOTE | 2021-07-11 20:45 | PC.NURSE ---
ra sats 86%. return pt back to 2lpm n/c
[2021-07-12] VITALS (8 sets, daily range): BP systolic 91–102; BP diastolic 49–57; PULSE 82–138; RESP 16–22; TEMP 36.9–37.3; O2SAT 91–100; BMI 34.9
[2021-07-12 00:50] LABS: POC Glucose,Bedside 129 (70-110)
[2021-07-12 00:50] LABS: POC Glucose,Bedside 171 (70-110)
--- NOTE | 2021-07-12 03:58 | PC.NURSE ---
Patient is A&Ox4. no complaints of pain. VSS. No more episodes of afib with rvr. ambulated to bathroom independently. no further concerns.
[2021-07-12 05:09] LABS: POC Glucose,Bedside 113 (70-110)
[2021-07-12 06:08] LABS: Lymphocytes # 0.4 K/mm3 (0.7-4.5); Monocytes # 0.5 K/mm3 (0.1-1.0); Neutrophils # 6.5 K/mm3 (1.8-7.8); Red Blood Count 2.93 M/mm3 (4.20-5.40); Red Cell Distribution Width 18.7 % (11.5-17.5)
[2021-07-12 06:17] LABS: Basophils % 0.2 % (0.1-2.0); Eosinophils % 0.4 % (0.1-12.0); Lymphocytes % 5.2 % (10-50); Mean Corpuscular HGB Conc 31.7 g/dL (31.8-35.4); Mean Corpuscular Hemoglobin 24.5 pg (27.0-31.2); Mean Corpuscular Volume 77.2 fl (81-99); Mean Platelet Volume 8.1 fl (7.4-10.4); Monocytes % 6.3 % (1.7-9.3); Neutrophils % 87.9 % (37.0-80.0); Platelet Count 166 K/mm3 (142-424); White Blood Count 7.4 K/mm3 (4.8-10.8)
[2021-07-12 06:19] LABS: Chloride 98 mmol/L (98-107); Hematocrit 22.6 % (37.0-47.0); Hemoglobin 7.2 g/dL (12.2-16.2); Sodium 136 mmol/L (136-145)
[2021-07-12 06:20] LABS: MANUAL DIFFERENTIAL MANUAL DIFFERENTIAL (MANUAL DIFF); Potassium 3.9 mmoL/L (3.5-5.1)
[2021-07-12 06:21] LABS: Prothrombin Time 31.4 seconds (10.1-12.5)
[2021-07-12 06:22] LABS: Alanine Aminotransferase 12 U/L (12-78); Albumin Level 3.5 g/dl (3.5-5.0); Albumin/Globulin Ratio 1.5 (1.1-1.8); Alkaline Phosphatase 68 U/L (38-126); Anion Gap 12.9 mEq/L (5-15); Aspartate Amino Transferase 20 U/L (14-36); Bilirubin,Total 1.1 mg/dl (0.2-1.3); Blood Urea Nitrogen 37 mg/dl (7-17); Calcium 8.4 mg/dl (8.4-10.2); Carbon Dioxide 29 mmol/L (22.0-30.0); Creatinine Clearance Estimated 41 mL/min (50-200); Estimated Glomerular Filt Rate 23 ml/min (>60); GFR (African American) 28 ML/MIN (>60); Globulin 2.4 g/dL (1.3-3.2); Glucose 106 mg/dl (74-100); Total Protein,Serum 5.9 g/dl (6.3-8.2)
[2021-07-12 06:23] LABS: Magnesium 1.9 mg/dl (1.6-2.3)
[2021-07-12 06:29] LABS: INR 2.88 (0.9-1.1)
[2021-07-12 07:22] LABS: Anisocytosis 1+; Hypochromasia 2+; Lymphocytes % 11 % (10-50); Microcytosis 2+; Monocytes % 1 % (2-9); Neutrophils % 85 % (42-76); Platelet Estimate Normal; Poikilocytosis 2+; Total Cells Counted 100
--- NOTE | 2021-07-12 09:14 | HMH.ACPN2 ---
Internal Medicine - PN: Subj *Date: 07/12/21 *Time: 09:14 Interval history: Overall patient feels a little better, continues to be slightly weak, mild fever but no actual temperature documented above normal. No shortness of air, slightly weak. Exam Vital signs and Labs for Last 24 Hours: Temp Pulse Resp BP Pulse Ox 98.4 F 92 H 20 91/52 L 96 07/12/21 08:00 07/12/21 08:00 07/12/21 08:00 07/12/21 08:00 07/12/21 08:00 Laboratory Results - last 24 hr 07/11/21 17:55: POC Glucose 129 H 07/11/21 19:39: POC Glucose 171 H 07/12/21 05:00: WBC 7.4, RBC 2.93 L, Hgb 7.2 L D, Hct 22.6 L, MCV 77.2 L, MCH 24.5 L, MCHC 31.7 L, RDW 18.7 H, Plt Count 166, MPV 8.1, Neut % (Auto) 87.9 H, Lymph % (Auto) 5.2 L, [place] % (Auto) 6.3, Eos % (Auto) 0.4, Baso % (Auto) 0.2, Neut # (Auto) 6.5, Lymph # (Auto) 0.4 L, [place] # (Auto) 0.5, Eos # (Auto) 0.0, Baso # (Auto) 0.0, Total Counted 100, Neutrophils % (Manual) 85 H, Band Neutrophils % 3.0, Lymphocytes % (Manual) 11, Monocytes % (Manual) 1 L, Platelet Estimate Normal, Hypochromasia 2+, Poikilocytosis 2+, Anisocytosis 1+, Microcytosis 2+ 07/12/21 05:00: Sodium 136, Potassium 3.9, Chloride 98, Carbon Dioxide 29, Anion Gap 12.9, BUN 37 H, Creatinine 2.20 H D, Estimated Creat Clear 41, Estimated GFR 23 L, Est GFR ( Amer) 28 L, Glucose 106 H D, Calcium 8.4, Magnesium 1.9, Total Bilirubin 1.1, AST 20, ALT 12, Alkaline Phosphatase 68, Total Protein 5.9 L, Albumin 3.5, Globulin 2.4, Albumin/Globulin Ratio 1.5 07/12/21 05:00: PT 31.4 H, INR 2.88 H 07/12/21 05:01: POC Glucose 113 H I & O for Last 24 hours: Intake & Output 07/09/21 07/10/21 07/11/21 07/12/21 11:59 11:59 11:59 11:59 Intake Total 1752 / 1752 2882 / 2882 2483 / 2483 Balance 1752 / 1752 2882 / 2882 2483 / 2483 Weight 206 lb 2.115 oz 205 lb 0.478 oz 204 lb 4 oz Microbiology Reports for the Last 24 Hours: Microbiology 07/09/21 20:12 Blood Blood Culture - Preliminary Gram Positive Cocci 07/09/21 20:12 Blood Blood Culture - Preliminary NO GROWTH AFTER 48 HOURS Narrative: Patient awake, alert, pleasant. No rash, no joint pains or swelling. Heart rate regular with crisp metallic valve sound. Rate under control today. Lungs have good air movement. No peripheral edema or clubbing. Neurologically intact. Abdomen soft. Assessment and Plan (1) Anemia Status: Acute Qualifiers: Iron deficiency anemia type: unspecified iron deficiency Category: Medical Code(s): D64.9 - Anemia, unspecified (2) Febrile illness, acute Status: Acute Category: Medical Code(s): R50.9 - Fever, unspecified (3) SIRS (systemic inflammatory response syndrome) Status: Acute Category: Medical Code(s): R65.10 - Systemic inflammatory response syndrome (SIRS) of non-infectious origin without acute organ dysfunction (4) Acute on chronic HFrEF (heart failure with reduced ejection fraction) Status: Acute Category: Medical Code(s): I50.23 - Acute on chronic systolic (congestive) heart failure (5) Polyarthralgia Status: Acute Category: Medical Code(s): M25.50 - Pain in unspecified joint - Assessment and plan all Dx Assessment and Plan for all problems:: Several issues going on: Anemia-steady posttransfusion. Sepsis/febrile illness-unclear source-blood culture looks like a contaminant. I will stop vancomycin and use only monotherapy with Levaquin given her slight increase in her creatinine. TRISTAN on top of chronic kidney disease. Stop Vanco, cautious increase IV fluids today. Anticoagulation issues-continue warfarin.
[2021-07-12 16:38] LABS: POC Glucose,Bedside 111 (70-110)
--- NOTE | 2021-07-12 17:25 | PC.NURSE ---
Addendum entered by Reina Ramirez RN 07/13/21 07:27: LATE ENTRY during 1651 assessment- pt's HR was still maintaining 130-160, which was why MD Clinton was notified for a second time Original Note: [id number]-Notified MD Clinton, estate conservator for MD Castro. Pt HR maintaining anywhere between, 140-160. Verbal order given for 5mg IV metoprolol once. 1651-Pt called out saying she thinks her blood sugar is low . Pt presents diaphoretic, pale, and states she is nauseated. FSBS 124. MD Clinton notified again, verbal order for 10mg Cardizem bolus and cardizem gtt started @ 5mg 1700- Pt transferred to room 218. Cardizem bolus not given @ this time d/t pt's HR @ 97-104. Will continue to monitor.
[2021-07-12 20:52] LABS: POC Glucose,Bedside 141 (70-110)
[2021-07-13] VITALS: PULSE 100
[2021-07-13 00:39] LABS: POC Glucose,Bedside 124 (70-110)
[2021-07-13 06:00] VITALS: BMI 36.1
[2021-07-13 07:39] LABS: Basophils % 0.2 % (0.1-2.0); Eosinophils # 0.1 K/mm3 (0.0-0.4); Eosinophils % 1.2 % (0.1-12.0); Hematocrit 23.7 % (37.0-47.0); Hemoglobin 7.3 g/dL (12.2-16.2); Lymphocytes # 0.6 K/mm3 (0.7-4.5); Lymphocytes % 9.1 % (10-50); Mean Corpuscular Hemoglobin 25.1 pg (27.0-31.2); Mean Corpuscular Volume 81.1 fl (81-99); Mean Platelet Volume 9.1 fl (7.4-10.4); Monocytes # 0.5 K/mm3 (0.1-1.0); Monocytes % 7.5 % (1.7-9.3); Platelet Count 177 K/mm3 (142-424); Red Blood Count 2.92 M/mm3 (4.20-5.40); Red Cell Distribution Width 18.2 % (11.5-17.5); White Blood Count 6.1 K/mm3 (4.8-10.8)
[2021-07-13 07:43] LABS: Chloride 99 mmol/L (98-107); Sodium 136 mmol/L (136-145)
[2021-07-13 07:47] LABS: Blood Urea Nitrogen 39 mg/dl (7-17); Calcium 8.5 mg/dl (8.4-10.2); Carbon Dioxide 27 mmol/L (22.0-30.0); Creatinine Clearance Estimated 42 mL/min (50-200); Estimated Glomerular Filt Rate 23 ml/min (>60); GFR (African American) 28 ML/MIN (>60); Glucose 86 mg/dl (74-100)
[2021-07-13 08:00] VITALS: BP 122/65; PULSE 82; PULSE 87; RESP 18; TEMP 36.9; O2SAT 93
[2021-07-13 08:08] LABS: Prothrombin Time 30.7 seconds (10.1-12.5)
[2021-07-13 08:10] LABS: INR 2.81 (0.9-1.1)
--- NOTE | 2021-07-13 08:33 | XR_ITS ---
PROCEDURE INFORMATION: Exam: XR Chest Exam date and time: 07/13/2021 8:33 AM Age: 56 years old Clinical indication: Shortness of breath; Additional info: F/u icu exam TECHNIQUE: Imaging protocol: XR of the chest. Views: 1 view. COMPARISON: CR XR CHEST 2V 07/09/2021 8:36 PM FINDINGS: Cardiac silhouette remains significantly enlarged. Stable left chest wall port. Median sternotomy and cardiac surgical changes. Similar mild interstitial airspace opacities with no consolidative opacity. No pleural effusion or pneumothorax. IMPRESSION: Persistent significant cardiac silhouette enlargement with mild interstitial edema and atelectasis.
--- NOTE | 2021-07-13 08:39 | HMH.ACPN2 ---
Internal Medicine - PN: Subj *Date: 07/13/21 *Time: 08:39 Interval history: Patient continues to feel poorly, has had some increased dyspnea and feelings of fevers and chills and has had a couple episodes of rapid A. fib that spontaneously converted back to sinus rhythm in the 90s. She has been moved to a monitored bed. Currently she is alert, pleasant, feels mildly dyspneic. Exam Vital signs and Labs for Last 24 Hours: Temp Pulse Resp BP Pulse Ox 98.5 F 87 18 122/65 93 L 07/13/21 08:00 07/13/21 08:00 07/13/21 08:00 07/13/21 08:00 07/13/21 08:00 Laboratory Results - last 24 hr 07/12/21 16:10: POC Glucose 111 H 07/12/21 16:48: POC Glucose 124 H 07/12/21 20:41: POC Glucose 141 H 07/13/21 07:10: PT 30.7 H, INR 2.81 H 07/13/21 07:10: WBC 6.1, RBC 2.92 L, Hgb 7.3 L, Hct 23.7 L, MCV 81.1, MCH 25.1 L, MCHC 31.0 L, RDW 18.2 H, Plt Count 177, MPV 9.1, Neut % (Auto) 82.0 H, Lymph % (Auto) 9.1 L, [place] % (Auto) 7.5, Eos % (Auto) 1.2, Baso % (Auto) 0.2, Neut # (Auto) 5.0, Lymph # (Auto) 0.6 L, [place] # (Auto) 0.5, Eos # (Auto) 0.1, Baso # (Auto) 0.0 07/13/21 07:10: Sodium 136, Potassium 4.0, Chloride 99, Carbon Dioxide 27, Anion Gap 14.0, BUN 39 H, Creatinine 2.20 H, Estimated Creat Clear 42, Estimated GFR 23 L, Est GFR ( Amer) 28 L, Glucose 86, Calcium 8.5 I & O for Last 24 hours: Intake & Output 07/10/21 07/11/21 07/12/21 07/13/21 11:59 11:59 11:59 11:59 Intake Total 1752 / 1752 2882 / 2882 3443 / 3443 640 / 640 Balance 175 / 1752 2882 / 2882 3443 / 3443 640 / 640 Weight 206 lb 2.115 oz 205 lb 0.478 oz 204 lb 4 oz 211 lb 5 oz Microbiology Reports for the Last 24 Hours: Microbiology 07/09/21 20:12 Blood Blood Culture - Preliminary Staphylococcus epidermidis Narrative: Patient is alert, awake, no JVD. Neck supple, neurologically intact. Lungs have minimal rhonchi in both bases. Mechanical valve is crisp. Abdomen soft. No edema or clubbing noted. No no rash. No joint pain or swelling Assessment and Plan (1) Anemia Status: Acute Qualifiers: Iron deficiency anemia type: unspecified iron deficiency Category: Medical Code(s): D64.9 - Anemia, unspecified (2) Febrile illness, acute Status: Acute Category: Medical Code(s): R50.9 - Fever, unspecified (3) SIRS (systemic inflammatory response syndrome) Status: Acute Category: Medical Code(s): R65.10 - Systemic inflammatory response syndrome (SIRS) of non-infectious origin without acute organ dysfunction (4) Acute on chronic HFrEF (heart failure with reduced ejection fraction) Status: Acute Category: Medical Code(s): I50.23 - Acute on chronic systolic (congestive) heart failure (5) Polyarthralgia Status: Acute Category: Medical Code(s): M25.50 - Pain in unspecified joint - Assessment and plan all Dx Assessment and Plan for all problems:: 1. Febrile illness of uncertain etiology-I am concerned about her mechanical valve-cultures have been negative but obviously culture-negative endocarditis is a concern. Continue antibiotics. Echo ordered tomorrow, I will ask cardiology about the feasibility of a CHUCHO in the near future. 2. Recurrent A. fib. Patient had previously been on diltiazem, stopped because of systolic heart failure and need for losartan. Her blood pressures been fairly acceptable, I will restart very low-dose immediate release Cardizem through the day today to see if this helps her rate. 3. Acute kidney injury. Vancomycin stopped yesterday, creatinine stable at 2.2. 4. CHF issues. Lasix administration today for symptomatic relief and help with oxygenation. Check creatinine tomorrow.
[2021-07-13 11:14] LABS: POC Glucose,Bedside 114 (70-110)
[2021-07-13 12:00] VITALS: PULSE 95
[2021-07-13 16:00] VITALS: BP 121/42; PULSE 80; PULSE 82; RESP 24; TEMP 36.8; O2SAT 97
[2021-07-13 20:00] VITALS: BP 98/55; PULSE 92; PULSE 97; RESP 19; TEMP 36.6; O2SAT 95
[2021-07-13 22:53] LABS: POC Glucose,Bedside 127 (70-110)
[2021-07-13 23:57] VITALS: BP 99/60; PULSE 98; RESP 14; TEMP 36.8; O2SAT 94
[2021-07-14] VITALS (17 sets, daily range): BP systolic 89–113; BP diastolic 50–72; PULSE 70–104; RESP 12–19; TEMP 36.7–37.1; O2SAT 87–96
[2021-07-14 01:44] LABS: POC Glucose,Bedside 96 (70-110)
[2021-07-14 01:44] LABS: POC Glucose,Bedside 108 (70-110)
[2021-07-14 05:36] LABS: POC Glucose,Bedside 97 (70-110)
[2021-07-14 06:18] LABS: Eosinophils # 0.1 K/mm3 (0.0-0.4); Mean Corpuscular Volume 81.8 fl (81-99); Monocytes # 0.4 K/mm3 (0.1-1.0); Red Blood Count 2.75 M/mm3 (4.20-5.40); Red Cell Distribution Width 18.1 % (11.5-17.5)
[2021-07-14 06:23] LABS: Chloride 99 mmol/L (98-107)
[2021-07-14 06:24] LABS: Potassium 3.7 mmoL/L (3.5-5.1); Sodium 135 mmol/L (136-145)
[2021-07-14 06:25] LABS: Basophils % 0.3 % (0.1-2.0); Eosinophils % 1.8 % (0.1-12.0); Lymphocytes # 0.4 K/mm3 (0.7-4.5); Lymphocytes % 7.2 % (10-50); Mean Corpuscular HGB Conc 30.5 g/dL (31.8-35.4); Mean Platelet Volume 8.5 fl (7.4-10.4); Neutrophils # 4.6 K/mm3 (1.8-7.8); Neutrophils % 83.8 % (37.0-80.0); Platelet Count 186 K/mm3 (142-424); White Blood Count 5.5 K/mm3 (4.8-10.8)
[2021-07-14 06:26] LABS: Alanine Aminotransferase 13 U/L (12-78); Alkaline Phosphatase 75 U/L (38-126); Anion Gap 12.7 mEq/L (5-15); Aspartate Amino Transferase 22 U/L (14-36); Bilirubin,Total 0.8 mg/dl (0.2-1.3); Blood Urea Nitrogen 44 mg/dl (7-17); Carbon Dioxide 27 mmol/L (22.0-30.0); Creatinine Clearance Estimated 44 mL/min (50-200); Estimated Glomerular Filt Rate 24 ml/min (>60); GFR (African American) 29 ML/MIN (>60); Hematocrit 22.5 % (37.0-47.0); Hemoglobin 6.9 g/dL (12.2-16.2); Prothrombin Time 31.8 seconds (10.1-12.5)
[2021-07-14 06:27] LABS: Albumin Level 3.5 g/dl (3.5-5.0); Albumin/Globulin Ratio 1.3 (1.1-1.8); Calcium 8.3 mg/dl (8.4-10.2); Globulin 2.7 g/dL (1.3-3.2); Glucose 90 mg/dl (74-100); INR 2.92 (0.9-1.1); Total Protein,Serum 6.2 g/dl (6.3-8.2)
--- NOTE | 2021-07-14 07:00 | CA_ITS ---
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: VASILE Santos, RVS Ht: 5 ft 4 in Wt: 211lbs BSA: 2.00 BP: 122/65 mmHg Indications: Fever, R/o Endocarditism MVR-mechanical, CP,COPD, HLD 2D Dimensions IVSd 1.02 cm F: 0.6-1.0 LVEF (Visual) 44.70 % PWd 1.09 cm F: 0.6 - 1.0 LA Volume 175.30 mL LVDd 6.18 cm F: 3.9 - 5.3 LA Volume Index 87.65 mL/m2 (M/F) 16-34 LVDs 4.78 cm F: 2.2 - 3.5 Left Atrium 4.83 cm F: 2.7 - 3.8 LVOT 2.00 cm (M/F) 1.5-2.5 M-Mode Dimensions LA Diam 5.83 cm (1.9-4.0) Ao Diam 2.74 cm (2.0-3.7) TAPSE 1.91 (<1.7) LV Diastology E Decel Time 170.00 (160-240 msec) E/A Ratio 2.1 MED E' 12.60 (< 7 cm/sec) MED A' 4.70 cm/s E'/MED E' Ratio 14.44 (>14) LAT E' 12.40 (<10 cm/sec) E/LAT E' Ratio 14.68 (>14) Aortic Valve LVOT Max 119.00 (70-110 cm/s) LVOT VTI 18.62 cm AoV Peak Jak. 250.00 (50-130 cm/s) AO Peak GR. 24.90 mmHg AO Mean GR. 11.20 (<5 mmHg) AO VTI 42.81 (18-25 cm) CLAIR (VTI) 1.25 (2.5-4.5 cm2) Mitral Valve MV E Max Jak. 182.00 (40-130 cm/s) MV A Velocity 88.00 (40-130 cm/s) E/A Ratio 2.07 MV Decel. Time 170.00 (160-240 ms) MV Mean Gr. 9.10 (<2mmHg) MV PHT 50.00 ms Tricuspid Valve TR P. Velocity 297.00 cm/s RAP Estimate 10.00 mmHg RVSP 45.20 mmHg Left Ventricle Left atrium is moderately enlarged, left ventricle is normal size, there is abnormal septal motion, visually estimated ejection fraction 50% with no obvious regional wall motion abnormality, endocardial surfaces are poorly visualized, diastolic parameters are inconclusive. Right Ventricle Right atrium and right ventricle moderately enlarged with normal contractility. Aortic Valve Aortic valve is minimally thickened and calcified, mean gradient across valve is 11 mmHg this represents mild aortic stenosis, there is no significant aortic insufficiency. Mitral Valve There is mechanical prosthetic valve noted in the mitral position, leaflets are not well visualized, there is significant acoustic shadowing, perivalvular structures are not well visualized. The mitral valve area is 2.75 cm??? by pressure half-time method, the mean gradient across valve is 9 mmHg. There is no significant mitral regurgitation seen. Tricuspid Valve Tricuspid valve leaflets are minimally thickened, there is moderate to severe tricuspid regurgitation, calculated right ventricular systolic pressure is 42 mmHg. Pulmonic Valve Pulmonic valve is poorly visualized. Great Vessels Aortic root is normal size. Pericardium No significant pericardial effusion noted. Conclusion 1. Technically difficult study, biatrial enlargement, normal left ventricular size, visually estimated ejection fraction 50% with abnormal septal motion. Diastolic parameters are inconclusive. 2. Moderately enlarged right ventricle with normal contractility. 3. Mechanical prosthetic valve in the mitral position, valve leaflets are not well visualized, there is significant acoustic shadowing, the mitral valve area is 2.75 cm??? by pressure half-time, mean gradient across valve is 9 mmHg. There is no significant mitral regurgitation seen. 4. Thickened and calcified aortic valve with mild aortic stenosis. 5. Moderate to severe tricuspid regurgitation, calculated right ventricular systolic pressure is 42 mmHg. 6. No significant pericardial effusion noted. Electronically signed by : Pedro Jacobsen MD 07/14/2021
--- NOTE | 2021-07-14 08:26 | HMH.CNCARD ---
History of Present Illness Consult date: 07/14/21 Requesting physician: Reji Castro Chief complaint: CHF, A. fib, possible endocarditis Additional Medical History:: 1. Normal coronaries, 2017 2. CHF, recurrent (HFrEF), mixed systolic and diastolic A. 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 3. HTN A. Echo, 06/06/2021, Moderate LAE, mild conc LVH, EF 45%, calcified aortic valve with mild . Mech MV, area 2.4 cm, mean gradient 6.4 mm Hg. No significant MR. Mod to severe TR, RVSP 36 mm Hg. B. Echo, 07/14/2021, 1. Technically difficult study, biatrial enlargement, normal left ventricular size, visually estimated ejection fraction 50% with abnormal septal motion. Diastolic parameters are inconclusive. 2. Moderately enlarged right ventricle with normal contractility. 3. Mechanical prosthetic valve in the mitral position, valve leaflets are not well visualized, there is significant acoustic shadowing, the mitral valve area is 2.75 cm??? by pressure half-time, mean gradient across valve is 9 mmHg. There is no significant mitral regurgitation seen. 4. Thickened and calcified aortic valve with mild aortic stenosis. 5. Moderate to severe tricuspid regurgitation, calculated right ventricular systolic pressure is 42 mmHg. 6. No significant pericardial effusion noted. Electronically signed by : Pedro Jacobsen MD 07/14/2021 09:13:28 4. Chronic A. fib, on coumadin managed by PCP 5. History of [facility] mechanical MV replacement, 2005, [place], [place], Dr. Paul Castillo A. Echo, 05/2021, Mechanical prosthetic valve in the mitral position, valve area is 2.4 cm, by pressure half-time, mean gradient across valve is 6.4 mmHg. There is no significant mitral regurgitation seen. 6. DM, type 2, diagnosed 2005 7. GERD 8. COPD 9. History of multiple urologic procedures for urethral stricture 10. Cardiorenal syndrome, followed by nephrology A. Creatinine 1.7, GFR 31, creatinine clearance 52, 06/23/2021 11. Autoimmune iron deficiency hemolytic anemia A. Patient relates 170 units transfused in the past sometimes as often as every 3 weeks B. Indwelling Power[employer] left chest C. Reportedly had prior bone marrow biopsy showing bone marrow functioning normally. Anemia related to spleen activity. History of present illness: 56-year-old female, history of autoimmune hemolytic anemia and cardiomyopathy secondary to above and chronic anemia and ischemic disease, who was at her oncologist office yesterday and her port access was attempted multiple times with lots of manipulation. This caused her a little bit of chest pain, and on her arrival home she began to have a lot of anterior and back oriented chest pain and developed fever and chills and body aches. Presented to the emergency department. She met criteria for sepsis with high fever, tachycardia and inflammatory markers. Chest x-ray and white count were normal, urinalysis was normal, blood cultures were done. Given criteria for sepsis she was admitted for Levaquin therapy, further culture monitoring and troponin trending. This morning she feels achy, like she has the flu and has a little bit of chest pain when she takes a deep breath. The above per Dr. Castro H&P. Pt has had some episodes of brief A. fib with RVR while here in hospital. Diltiazem IV has been used briefly but now is on oral short acting diltiazem. HR currently in the 90's bpm. She is on chronic coumadin with a therapeutic level. Concern for endocarditis of mechanical valve with positive blood cultures from one bottle. Echocardiogram pending. She is on levaquin and was on vancomycin but this has been stopped due to slight increase in renal functions. Today, she is receiving her 3rd unit of blood in the last week. Cardiology consulted to address possible endocarditis issue and for recommendations regarding treatment of her ac
--- NOTE | 2021-07-14 08:31 | HMH.ACPN2 ---
Internal Medicine - PN: Subj *Date: 07/14/21 *Time: 08:31 Interval history: Patient states that she feels a tiny bit better this morning. She had a good diuresis with Lasix yesterday, continues to feel short of breath but less so than yesterday. She requires 3 L of oxygen at 94% saturations on this level. Exam Vital signs and Labs for Last 24 Hours: Temp Pulse Resp BP Pulse Ox 98.3 F 89 12 92/52 L 94 L 07/14/21 04:00 07/14/21 04:00 07/14/21 04:00 07/14/21 04:00 07/14/21 04:00 Laboratory Results - last 24 hr 07/13/21 05:37: POC Glucose 96 07/13/21 11:04: POC Glucose 114 H 07/13/21 16:54: POC Glucose 108 07/13/21 20:34: POC Glucose 127 H 07/14/21 05:28: POC Glucose 97 07/14/21 05:45: PT 31.8 H, INR 2.92 H 07/14/21 05:45: WBC 5.5, RBC 2.75 L, Hgb 6.9 L*, Hct 22.5 L, MCV 81.8, MCH 25.0 L, MCHC 30.5 L, RDW 18.1 H, Plt Count 186, MPV 8.5, Neut % (Auto) 83.8 H, Lymph % (Auto) 7.2 L, [place] % (Auto) 7.0, Eos % (Auto) 1.8, Baso % (Auto) 0.3, Neut # (Auto) 4.6, Lymph # (Auto) 0.4 L, [place] # (Auto) 0.4, Eos # (Auto) 0.1, Baso # (Auto) 0.0 07/14/21 05:45: Sodium 135 L, Potassium 3.7, Chloride 99, Carbon Dioxide 27, Anion Gap 12.7, BUN 44 H, Creatinine 2.10 H, Estimated Creat Clear 44, Estimated GFR 24 L, Est GFR ( Amer) 29 L, Glucose 90, Calcium 8.3 L, Total Bilirubin 0.8, AST 22, ALT 13, Alkaline Phosphatase 75, Total Protein 6.2 L, Albumin 3.5, Globulin 2.7, Albumin/Globulin Ratio 1.3 I & O for Last 24 hours: Intake & Output 07/11/21 07/12/21 07/13/21 07/14/21 11:59 11:59 11:59 11:59 Intake Total 2882 / 2882 3443 / 3443 880 / 880 1370 / 1370 Balance 2882 / 2882 3443 / 3443 880 / 880 1370 / 1370 Weight 205 lb 0.478 oz 204 lb 4 oz 211 lb 5 oz Microbiology Reports for the Last 24 Hours: Microbiology 07/11/21 10:31 Blood Blood Culture - Preliminary NO GROWTH AFTER 48 HOURS 07/11/21 10:00 Blood Blood Culture - Preliminary NO GROWTH AFTER 48 HOURS 07/09/21 20:12 Blood Blood Culture - Preliminary Staphylococcus epidermidis Narrative: Patient is alert, pleasant. Does not appear dyspneic at rest. No JVD. Oropharynx clear. Lungs are clear with fairly good air entry. Heart rate regular with crisp mechanical valve sound. Abdomen soft. Extremities warm and well-perfused. Neurologically intact. Assessment and Plan (1) Anemia Status: Acute Qualifiers: Qualified Code(s): D50.9 - Iron deficiency anemia, unspecified Category: Medical Code(s): D64.9 - Anemia, unspecified (2) Febrile illness, acute Status: Acute Category: Medical Code(s): R50.9 - Fever, unspecified (3) SIRS (systemic inflammatory response syndrome) Status: Acute Category: Medical Code(s): R65.10 - Systemic inflammatory response syndrome (SIRS) of non-infectious origin without acute organ dysfunction (4) Acute on chronic HFrEF (heart failure with reduced ejection fraction) Status: Acute Category: Medical Code(s): I50.23 - Acute on chronic systolic (congestive) heart failure (5) Polyarthralgia Status: Acute Category: Medical Code(s): M25.50 - Pain in unspecified joint - Assessment and plan all Dx Assessment and Plan for all problems:: Use-staph epi from 1 bottle of the initial blood cultures noted, I do not believe this is actual infection and is more likely a commensal organism. Continue current Levaquin therapy. Vancomycin stopped because of increasing creatinine. Echocardiogram ordered today. Await results. Cardiology consultation to help with A. fib management as well as possible changing CHF medications. Valve issue is problematic. I am concerned patient might have culture-negative endocarditis and cardiology will opine about feasibility of a CHUCHO. Ongoing autoimmune anemia. 1 unit of packed cells today. Acute kidney injury-slight improvement today. 1 unit of blood today
--- NOTE | 2021-07-14 10:20 | HMH.ACPN ---
Internal Medicine - PN: Subj *Date: 07/14/21 *Time: 10:20 Exam Vital signs and Labs for Last 24 Hours: Temp Pulse Resp BP Pulse Ox 98.4 F 104 H 18 112/64 96 07/14/21 08:00 07/14/21 08:00 07/14/21 08:00 07/14/21 08:00 07/14/21 08:00 Laboratory Results - last 24 hr 07/13/21 05:37: POC Glucose 96 07/13/21 11:04: POC Glucose 114 H 07/13/21 16:54: POC Glucose 108 07/13/21 20:34: POC Glucose 127 H 07/14/21 05:28: POC Glucose 97 07/14/21 05:45: PT 31.8 H, INR 2.92 H 07/14/21 05:45: WBC 5.5, RBC 2.75 L, Hgb 6.9 L*, Hct 22.5 L, MCV 81.8, MCH 25.0 L, MCHC 30.5 L, RDW 18.1 H, Plt Count 186, MPV 8.5, Neut % (Auto) 83.8 H, Lymph % (Auto) 7.2 L, [place] % (Auto) 7.0, Eos % (Auto) 1.8, Baso % (Auto) 0.3, Neut # (Auto) 4.6, Lymph # (Auto) 0.4 L, [place] # (Auto) 0.4, Eos # (Auto) 0.1, Baso # (Auto) 0.0 07/14/21 05:45: Sodium 135 L, Potassium 3.7, Chloride 99, Carbon Dioxide 27, Anion Gap 12.7, BUN 44 H, Creatinine 2.10 H, Estimated Creat Clear 44, Estimated GFR 24 L, Est GFR ( Amer) 29 L, Glucose 90, Calcium 8.3 L, Total Bilirubin 0.8, AST 22, ALT 13, Alkaline Phosphatase 75, Total Protein 6.2 L, Albumin 3.5, Globulin 2.7, Albumin/Globulin Ratio 1.3 07/14/21 09:00: Blood Type O Positive, Antibody Screen Negative, Crossmatch (AHG) See Detail I & O for Last 24 hours: Intake & Output 07/11/21 07/12/21 07/13/21 07/14/21 23:59 23:59 23:59 23:59 Intake Total 2912 / 2912 2883 / 2883 960 / 1610 890 / 890 Balance 2912 / 2912 2883 / 2883 960 / 1610 890 / 890 Weight 93 kg 92.646 kg 95.85 kg Microbiology Reports for the Last 24 Hours: Microbiology 07/11/21 10:31 Blood Blood Culture - Preliminary NO GROWTH AFTER 48 HOURS 07/11/21 10:00 Blood Blood Culture - Preliminary NO GROWTH AFTER 48 HOURS Assessment and Plan (1) Anemia Status: Acute Qualifiers: Qualified Code(s): D50.9 - Iron deficiency anemia, unspecified Category: Medical Code(s): D64.9 - Anemia, unspecified (2) Febrile illness, acute Status: Acute Category: Medical Code(s): R50.9 - Fever, unspecified (3) SIRS (systemic inflammatory response syndrome) Status: Acute Category: Medical Code(s): R65.10 - Systemic inflammatory response syndrome (SIRS) of non-infectious origin without acute organ dysfunction (4) Acute on chronic HFrEF (heart failure with reduced ejection fraction) Status: Acute Category: Medical Code(s): I50.23 - Acute on chronic systolic (congestive) heart failure (5) Polyarthralgia Status: Acute Category: Medical Code(s): M25.50 - Pain in unspecified joint (6) History of mitral valve replacement with mechanical valve Status: Chronic Category: Surgical Code(s): Z95.2 - Presence of prosthetic heart valve (7) half-way current use of anticoagulants with INR goal of 2.5-3.5 Status: Chronic Category: Medical Code(s): Z79.01 - half-way (current) use of anticoagulants The patient's infection will respond to the chosen ABx?: Yes Is the patient receiving the right drug, dose, and route?: Yes Could a more targeted ABx be ordered?: No
[2021-07-14 11:55] LABS: POC Glucose,Bedside 107 (70-110)
--- NOTE | 2021-07-14 12:00 | PC.NURSE ---
PRBC transfusion initially delayed due to another patient needing me. Now pt reports that she usually takes 25mg of IV benedryl and tylenol before transfusions. I just left a message for MD requesting an order, waiting to hear back at this time.
--- NOTE | 2021-07-14 15:38 | DIET.NUTRFU ---
Addendum entered by Joan Meehan 07/16/21 14:45: PO intakes 50-75%. Weight down 2#, no edema noted. BG moderate- avg. 120. She had a BM with mag citrate today. Original Note: PO intakes 50% dt intermittent nausea. Pt not open to energy supplements at this time, did request yogurt with meals, added to order. Weight up 4#, no edema noted. BG wnl-moderate, avg. 115. Pt has been provided diet edu for DM, CHF, and potential warfarin/vit k interaction. No BM t/o stay.
[2021-07-14 16:50] LABS: POC Glucose,Bedside 122 (70-110)
[2021-07-14 17:39] LABS: Hematocrit 24.3 % (37.0-47.0); Hemoglobin 7.4 g/dL (12.2-16.2)
--- NOTE | 2021-07-14 18:51 | PC.NURSE ---
Pt is alert and oriented x4. She remains on 4L NC with O2 sats in the 90's. She gets up to the bsc independently but occasionally needs assistance. She has been afib on tele. Family would like at some point to speak with cardiology and MD concerning future plans for patient. She has complained of pain all over x2 today. Medicated per mar with relief noted on reassessment. No changes since morning assessment.
[2021-07-14 21:51] LABS: POC Glucose,Bedside 117 (70-110)
[2021-07-15] VITALS (9 sets, daily range): BP systolic 85–127; BP diastolic 50–62; PULSE 67–97; RESP 18–24; TEMP 36.7–36.9; O2SAT 91–100; BMI 36.1
[2021-07-15 05:32] LABS: POC Glucose,Bedside 125 (70-110)
--- NOTE | 2021-07-15 06:21 | PC.NURSE ---
patient has had an uneventful night; has been alert and talking with staff; no s/s of acute distress noted this shift, call light within reach, bed at lowest level for safety, will continue to monitor.
[2021-07-15 07:23] LABS: Basophils % 0.7 % (0.1-2.0); Eosinophils # 0.2 K/mm3 (0.0-0.4); Eosinophils % 3.9 % (0.1-12.0); Hematocrit 26.4 % (37.0-47.0); Hemoglobin 8.1 g/dL (12.2-16.2); Lymphocytes # 0.3 K/mm3 (0.7-4.5); Lymphocytes % 5.7 % (10-50); Mean Corpuscular HGB Conc 30.6 g/dL (31.8-35.4); Mean Corpuscular Hemoglobin 24.9 pg (27.0-31.2); Mean Corpuscular Volume 81.3 fl (81-99); Mean Platelet Volume 7.9 fl (7.4-10.4); Monocytes # 0.3 K/mm3 (0.1-1.0); Monocytes % 5.6 % (1.7-9.3); Neutrophils % 84.2 % (37.0-80.0); Platelet Count 221 K/mm3 (142-424); Red Blood Count 3.25 M/mm3 (4.20-5.40); Red Cell Distribution Width 17.7 % (11.5-17.5)
[2021-07-15 07:31] LABS: Chloride 98 mmol/L (98-107); Potassium 4.3 mmoL/L (3.5-5.1); Sodium 137 mmol/L (136-145)
[2021-07-15 07:34] LABS: Anion Gap 12.3 mEq/L (5-15); Blood Urea Nitrogen 42 mg/dl (7-17); Calcium 8.9 mg/dl (8.4-10.2); Carbon Dioxide 31 mmol/L (22.0-30.0); Creatinine Clearance Estimated 51 mL/min (50-200); Estimated Glomerular Filt Rate 29 ml/min (>60); GFR (African American) 35 ML/MIN (>60); Glucose 121 mg/dl (74-100)
--- NOTE | 2021-07-15 08:41 | HMH.PNCARD ---
Subjective Date: 07/15/21 Time: 08:41 Principal diagnosis: CHF, anemia, febrile illness Interval history: 56 yo WF in bed in NAD. Still with complaint of fullness in chest and unable to take a full, deep breath. Feeling slightly better since blood transfusion. Exam Vital signs and Labs for Last 24 Hours: Temp Pulse Resp BP Pulse Ox 98.5 F 86 19 97/62 L 95 07/15/21 07:55 07/15/21 07:55 07/15/21 07:55 07/15/21 07:55 07/15/21 08:00 Laboratory Results - last 24 hr 07/14/21 09:00: Blood Type O Positive, Antibody Screen Negative, Crossmatch (AHG) See Detail 07/14/21 11:46: POC Glucose 107 07/14/21 16:39: POC Glucose 122 H 07/14/21 16:50: Hgb 7.4 L, Hct 24.3 L 07/14/21 21:28: POC Glucose 117 H 07/15/21 05:21: POC Glucose 125 H 07/15/21 07:10: WBC 6.0, RBC 3.25 L, Hgb 8.1 L, Hct 26.4 L, MCV 81.3, MCH 24.9 L, MCHC 30.6 L, RDW 17.7 H, Plt Count 221, MPV 7.9, Neut % (Auto) 84.2 H, Lymph % (Auto) 5.7 L, [place] % (Auto) 5.6, Eos % (Auto) 3.9, Baso % (Auto) 0.7, Neut # (Auto) 5.0, Lymph # (Auto) 0.3 L, [place] # (Auto) 0.3, Eos # (Auto) 0.2, Baso # (Auto) 0.0 07/15/21 07:10: Sodium 137, Potassium 4.3, Chloride 98, Carbon Dioxide 31 H, Anion Gap 12.3, BUN 42 H, Creatinine 1.80 H, Estimated Creat Clear 51, Estimated GFR 29 L, Est GFR ( Amer) 35 L D, Glucose 121 H, Calcium 8.9 I & O for Last 24 hours: Intake & Output 07/12/21 07/13/21 07/14/21 07/15/21 11:59 11:59 11:59 11:59 Intake Total 3443 / 3443 880 / 880 1610 / 1610 3103 / 3103 Output Total 500 / 500 Balance 3443 / 3443 880 / 880 1610 / 1610 2603 / 2603 Weight 204 lb 4 oz 211 lb 5 oz 210 lb 5 oz Microbiology Reports for the Last 24 Hours: Microbiology 07/09/21 20:12 Blood Blood Culture - Final NO GROWTH AFTER 5 DAYS - *Routine Respiratory Exam Present: crackles - *Routine Cardiovascular Exam Present: click, irregular rhythm - *Routine Neurological Exam Present: alert, oriented X3 Progress Note: A&P (1) Anemia Status: Acute (2) Febrile illness, acute Status: Acute (3) SIRS (systemic inflammatory response syndrome) Status: Acute (4) Acute on chronic HFrEF (heart failure with reduced ejection fraction) Status: Acute (5) Polyarthralgia Status: Acute (6) History of mitral valve replacement with mechanical valve Status: Chronic (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 CHF, both systolic and diastolic, Will give one time IV bumex this AM to see if she will diurese due to crackles on exam. 2. Anemia, s/p transfusion to Hgb 8.1 3. Mech MVR, on coumadin. Concern for endocarditis with plans to proceed with CHUCHO on . 4. A. fib, on anticoagulation with coumadin 5. Positive blood culture (1 of 2), on levaquin
--- NOTE | 2021-07-15 08:58 | HMH.ACPN2 ---
Internal Medicine - PN: Subj *Date: 07/15/21 *Time: 18:01 Interval history: Continues to complain of chest fullness/tightness. Stable on 2 L nasal cannula oxygen. On interview this morning, reports her belly feels full, appears more distended to me today. Reports she has not had a bowel movement in almost a week. She is not bothered to report this previously. Denies nausea or vomiting. Having occasional gas. Afebrile. No fever since admission per chart review. Blood cultures remain negative from repeat set of bottles. Initial set with single bottle positive for staph epidermidis. Currently awaiting CHUCHO. Exam Vital signs and Labs for Last 24 Hours: Temp Pulse Resp BP Pulse Ox 98.5 F 86 19 97/62 L 95 07/15/21 07:55 07/15/21 07:55 07/15/21 07:55 07/15/21 07:55 07/15/21 08:00 Laboratory Results - last 24 hr 07/14/21 09:00: Blood Type O Positive, Antibody Screen Negative, Crossmatch (AHG) See Detail 07/14/21 11:46: POC Glucose 107 07/14/21 16:39: POC Glucose 122 H 07/14/21 16:50: Hgb 7.4 L, Hct 24.3 L 07/14/21 21:28: POC Glucose 117 H 07/15/21 05:21: POC Glucose 125 H 07/15/21 07:10: WBC 6.0, RBC 3.25 L, Hgb 8.1 L, Hct 26.4 L, MCV 81.3, MCH 24.9 L, MCHC 30.6 L, RDW 17.7 H, Plt Count 221, MPV 7.9, Neut % (Auto) 84.2 H, Lymph % (Auto) 5.7 L, [place] % (Auto) 5.6, Eos % (Auto) 3.9, Baso % (Auto) 0.7, Neut # (Auto) 5.0, Lymph # (Auto) 0.3 L, [place] # (Auto) 0.3, Eos # (Auto) 0.2, Baso # (Auto) 0.0 07/15/21 07:10: Sodium 137, Potassium 4.3, Chloride 98, Carbon Dioxide 31 H, Anion Gap 12.3, BUN 42 H, Creatinine 1.80 H, Estimated Creat Clear 51, Estimated GFR 29 L, Est GFR ( Amer) 35 L D, Glucose 121 H, Calcium 8.9 I & O for Last 24 hours: Intake & Output 07/12/21 07/13/21 07/14/21 07/15/21 23:59 23:59 23:59 23:59 Intake Total 2883 / 2883 960 / 1610 1972 Output Total 500 / 500 0 / 0 Balance 2883 / 2883 960 / 1610 1473 / 1473 2019 Weight 92.646 kg 95.85 kg 95.396 kg Microbiology Reports for the Last 24 Hours: Microbiology 07/09/21 20:12 Blood Blood Culture - Final NO GROWTH AFTER 5 DAYS Narrative: Patient is alert, pleasant. Does not appear dyspneic at rest. No JVD. Oropharynx clear. Lungs are clear with fairly good air entry. Heart rate regular with crisp mechanical valve sound. Abdomen distended, hypoactive bowel sounds. Nonfocal tenderness Extremities warm and well-perfused. Neurologically intact. Assessment and Plan (1) Anemia Status: Acute Qualifiers: Iron deficiency anemia type: unspecified iron deficiency Category: Medical Code(s): D64.9 - Anemia, unspecified (2) Febrile illness, acute Status: Acute Category: Medical Code(s): R50.9 - Fever, unspecified (3) SIRS (systemic inflammatory response syndrome) Status: Acute Category: Medical Code(s): R65.10 - Systemic inflammatory response syndrome (SIRS) of non-infectious origin without acute organ dysfunction (4) Acute on chronic HFrEF (heart failure with reduced ejection fraction) Status: Acute Category: Medical Code(s): I50.23 - Acute on chronic systolic (congestive) heart failure (5) Polyarthralgia Status: Acute Category: Medical Code(s): M25.50 - Pain in unspecified joint (6) History of mitral valve replacement with mechanical valve Status: Chronic Category: Surgical Code(s): Z95.2 - Presence of prosthetic heart valve (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
[2021-07-15 10:56] LABS: POC Glucose,Bedside 147 (70-110)
[2021-07-15 15:51] LABS: POC Glucose,Bedside 119 (70-110)
--- NOTE | 2021-07-15 17:43 | PC.NURSE ---
Pt has slept majority of this shift. Pt continues to be on 2-3L NC. Pt has been hypotensive this shift, MIVF running @ 125mL/hr. No other acute changes or complaints at this time, will continue to monitor.
--- NOTE | 2021-07-15 20:15 | PC.NURSE ---
Pt had small BM.
[2021-07-16] VITALS (8 sets, daily range): BP systolic 90–103; BP diastolic 50–65; PULSE 56–97; RESP 18–20; TEMP 36.4–36.8; O2SAT 92–98; BMI 35.5
--- NOTE | 2021-07-16 01:36 | XR_ITS ---
PROCEDURE INFORMATION: Exam: XR Abdomen Exam date and time: 07/16/2021 1:36 AM Age: 56 years old Clinical indication: Constipation TECHNIQUE: Imaging protocol: XR of the abdomen. Views: Frontal supine view of the abdomen. 1 View. COMPARISON: CR XR CHEST PORTABLE 07/13/2021 8:45 AM FINDINGS: Tubes, catheters and devices: Vascular catheter terminates at the caval atrial junction. Surgical clips project over the abdomen. Heart/Mediastinum: Moderate cardiac enlargement again seen. Postsurgical changes seen in the heart. Gastrointestinal tract: Normal. No bowel dilation. Moderate stool burden. No evidence of obstruction. Bones/joints: Unremarkable. IMPRESSION: Moderate stool burden. Question constipation.
[2021-07-16 06:24] LABS: Basophils % 0.6 % (0.1-2.0); Eosinophils # 0.2 K/mm3 (0.0-0.4); Eosinophils % 4.6 % (0.1-12.0); Hematocrit 24.7 % (37.0-47.0); Hemoglobin 7.7 g/dL (12.2-16.2); Lymphocytes # 0.6 K/mm3 (0.7-4.5); Lymphocytes % 11.3 % (10-50); Mean Corpuscular HGB Conc 31.2 g/dL (31.8-35.4); Mean Corpuscular Hemoglobin 25.6 pg (27.0-31.2); Mean Platelet Volume 8.4 fl (7.4-10.4); Monocytes # 0.4 K/mm3 (0.1-1.0); Neutrophils # 3.7 K/mm3 (1.8-7.8); Neutrophils % 75.5 % (37.0-80.0); Platelet Count 221 K/mm3 (142-424); Red Blood Count 3.01 M/mm3 (4.20-5.40); Red Cell Distribution Width 17.7 % (11.5-17.5); White Blood Count 4.9 K/mm3 (4.8-10.8)
[2021-07-16 06:29] LABS: Chloride 100 mmol/L (98-107)
[2021-07-16 06:30] LABS: Potassium 3.8 mmoL/L (3.5-5.1); Sodium 139 mmol/L (136-145)
[2021-07-16 06:32] LABS: Alanine Aminotransferase 11 U/L (12-78); Aspartate Amino Transferase 17 U/L (14-36); Blood Urea Nitrogen 43 mg/dl (7-17); Creatinine Clearance Estimated 51 mL/min (50-200); Estimated Glomerular Filt Rate 29 ml/min (>60); GFR (African American) 35 ML/MIN (>60)
[2021-07-16 06:33] LABS: Albumin Level 3.4 g/dl (3.5-5.0); Albumin/Globulin Ratio 1.3 (1.1-1.8); Alkaline Phosphatase 75 U/L (38-126); Anion Gap 11.8 mEq/L (5-15); Bilirubin,Total 0.5 mg/dl (0.2-1.3); Calcium 8.9 mg/dl (8.4-10.2); Carbon Dioxide 31 mmol/L (22.0-30.0); Globulin 2.6 g/dL (1.3-3.2); Glucose 97 mg/dl (74-100); Magnesium 2.1 mg/dl (1.6-2.3)
--- NOTE | 2021-07-16 07:02 | PC.NURSE ---
pt is AxOx4, has rested well t/o shift, has been on 3L NC t/o shift, patient only had a very small BM so KUB was ordered and carried out, patient is passing flatulence but still has not had a bowel movement
--- NOTE | 2021-07-16 08:19 | HMH.ACPN2 ---
Internal Medicine - PN: Subj *Date: 07/16/21 *Time: 08:19 Interval history: Overall patient feels somewhat better, is breathing better. She had a good diuresis yesterday with Bumex. Her blood pressure has been on the low side of normal. She is had no further episodes of A. fib. Has not produced a voluminous stool overnight. Exam Vital signs and Labs for Last 24 Hours: Temp Pulse Resp BP Pulse Ox 97.9 F 73 20 96/50 L 97 07/16/21 04:00 07/16/21 04:00 07/16/21 04:00 07/16/21 04:00 07/16/21 04:00 Laboratory Results - last 24 hr 07/15/21 10:47: POC Glucose 147 H 07/15/21 15:43: POC Glucose 119 H 07/16/21 05:10: WBC 4.9, RBC 3.01 L, Hgb 7.7 L, Hct 24.7 L, MCV 82.0, MCH 25.6 L, MCHC 31.2 L, RDW 17.7 H, Plt Count 221, MPV 8.4, Neut % (Auto) 75.5, Lymph % (Auto) 11.3, [place] % (Auto) 8.0, Eos % (Auto) 4.6, Baso % (Auto) 0.6, Neut # (Auto) 3.7, Lymph # (Auto) 0.6 L, [place] # (Auto) 0.4, Eos # (Auto) 0.2, Baso # (Auto) 0.0 07/16/21 05:10: Sodium 139, Potassium 3.8, Chloride 100, Carbon Dioxide 31 H, Anion Gap 11.8, BUN 43 H, Creatinine 1.80 H, Estimated Creat Clear 51, Estimated GFR 29 L, Est GFR ( Amer) 35 L, Glucose 97, Calcium 8.9, Magnesium 2.1, Total Bilirubin 0.5, AST 17, ALT 11 L, Alkaline Phosphatase 75, Total Protein 6.0 L, Albumin 3.4 L, Globulin 2.6, Albumin/Globulin Ratio 1.3 I & O for Last 24 hours: Intake & Output 07/13/21 07/14/21 07/15/21 07/16/21 11:59 11:59 11:59 11:59 Intake Total 880 / 880 1610 / 1610 3103 / 3103 360 / 360 Output Total 500 / 500 2900 / 2900 Balance 880 / 880 1610 / 1610 2603 / 2603 -2540 / -2540 Weight 211 lb 5 oz 210 lb 5 oz 208 lb 1 oz Narrative: Mechanical valve sound is crisp. Otherwise heart rate regular. Lungs have fairly good air entry. Heart rate regular. Abdomen is distended, slightly tender in the upper quadrants. No rebound or guarding. No edema or clubbing. Patient is pleasant and alert and neurologically intact Assessment and Plan (1) Anemia Status: Acute Qualifiers: Iron deficiency anemia type: unspecified iron deficiency Category: Medical Code(s): D64.9 - Anemia, unspecified (2) Febrile illness, acute Status: Acute Category: Medical Code(s): R50.9 - Fever, unspecified (3) SIRS (systemic inflammatory response syndrome) Status: Acute Category: Medical Code(s): R65.10 - Systemic inflammatory response syndrome (SIRS) of non-infectious origin without acute organ dysfunction (4) Acute on chronic HFrEF (heart failure with reduced ejection fraction) Status: Acute Category: Medical Code(s): I50.23 - Acute on chronic systolic (congestive) heart failure (5) Polyarthralgia Status: Acute Category: Medical Code(s): M25.50 - Pain in unspecified joint (6) History of mitral valve replacement with mechanical valve Status: Chronic Category: Surgical Code(s): Z95.2 - Presence of prosthetic heart valve (7) 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 Mag citrate to help with constipation issues which would certainly help with her breathing and overall abdominal distention if we can produce a good stool. CHUCHO tomorrow. I am actually increasingly less concerned about endocarditis given her lack of white count, lack of fever on Levaquin therapy only. Otherwise CHF is stable/improving on current regimen.
--- NOTE | 2021-07-16 09:05 | HMH.PNCARD ---
Subjective Date: 07/16/21 Time: 08:30 Principal diagnosis: CHF, anemia, febrile illness Interval history: This is a 56-year-old white female who appears to be in no distress this morning. The patient states that she still feels really full and has had a little bit of pressure in her chest with shortness of breath. She states that this is much better than when she was initially admitted to the hospital. The patient did diurese well overnight. She states that her fatigue and energy have also improved since being transfused with blood. She denies any fever, chills, nausea, vomiting or diarrhea. Exam Vital signs and Labs for Last 24 Hours: Temp Pulse Resp BP Pulse Ox 97.6 F 97 H 20 98/65 L 98 07/16/21 08:00 07/16/21 08:00 07/16/21 08:00 07/16/21 08:00 07/16/21 08:00 Laboratory Results - last 24 hr 07/15/21 10:47: POC Glucose 147 H 07/15/21 15:43: POC Glucose 119 H 07/16/21 05:10: WBC 4.9, RBC 3.01 L, Hgb 7.7 L, Hct 24.7 L, MCV 82.0, MCH 25.6 L, MCHC 31.2 L, RDW 17.7 H, Plt Count 221, MPV 8.4, Neut % (Auto) 75.5, Lymph % (Auto) 11.3, [place] % (Auto) 8.0, Eos % (Auto) 4.6, Baso % (Auto) 0.6, Neut # (Auto) 3.7, Lymph # (Auto) 0.6 L, [place] # (Auto) 0.4, Eos # (Auto) 0.2, Baso # (Auto) 0.0 07/16/21 05:10: Sodium 139, Potassium 3.8, Chloride 100, Carbon Dioxide 31 H, Anion Gap 11.8, BUN 43 H, Creatinine 1.80 H, Estimated Creat Clear 51, Estimated GFR 29 L, Est GFR ( Amer) 35 L, Glucose 97, Calcium 8.9, Magnesium 2.1, Total Bilirubin 0.5, AST 17, ALT 11 L, Alkaline Phosphatase 75, Total Protein 6.0 L, Albumin 3.4 L, Globulin 2.6, Albumin/Globulin Ratio 1.3 I & O for Last 24 hours: Intake & Output 07/13/21 07/14/21 07/15/21 07/16/21 23:59 23:59 23:59 23:59 Intake Total 960 / 1610 1972 2380 / 2380 Output Total 500 / 500 2000 / 2600 900 / 900 Balance 960 / 1610 1473 / 1473 380 / -220 -900 / -900 Weight 211 lb 5 oz 210 lb 5 oz 208 lb 1 oz - Constitutional no acute distress, obese - *Routine HEENT Exam Head: Present: normocephalic, atraumatic Eye: Present: EOMI, PERRL ENT: Present: mucous membranes moist - *Routine Neck Exam Present: supple, full ROM, normal carotid upstroke. Absent: JVD, carotid bruit, lymphadenopathy - *Routine Respiratory Exam Present: crackles - *Routine Cardiovascular Exam Present: RRR, Normal S1, Normal S2, murmur, click - *Routine Abdominal Exam Present: soft, normoactive bowel sounds. Absent: tenderness, distended - *Routine Extremities Exam Present: full ROM, pulses intact, normal capillary refill. Absent: cyanosis, clubbing, edema - *Routine Skin Exam Present: intact, warm. Absent: erythema, rash - *Routine Neurological Exam Present: alert, oriented X3, CN II-XII intact. 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 The patient has combined systolic and diastolic congestive heart failure. She was switched to IV Bumex yesterday. The patient did diurese 2 L overnight but she still has a positive fluid balance for the day. We will continue with IV diuresis with Bumex on this patient with a goal to have a negative fluid balance given her congestive heart failure. 2. The patient's creatinine remained stable at 1.8. We will continue to follow her renal function closely while she has been diuresed. 3. The patient does have a positive blood cultu
[2021-07-16 10:13] LABS: POC Glucose,Bedside 100 (70-110)
[2021-07-16 11:06] LABS: POC Glucose,Bedside 127 (70-110)
--- NOTE | 2021-07-16 14:05 | PC.NURSE ---
Late entry 1230- pt had an XL hard, brown BM
[2021-07-16 16:53] LABS: POC Glucose,Bedside 113 (70-110)
--- NOTE | 2021-07-16 18:30 | PC.NURSE ---
Pt has had multiple loose BM's this shift. At times, pt has been bradycardic. Still afib on the monitor. No other acute changes or complaints will continue to monitor.
[2021-07-16 20:25] LABS: POC Glucose,Bedside 169 (70-110)
--- NOTE | 2021-07-16 20:37 | PC.NURSE ---
1999 dr hatch notified of heart rate consistently running in the low 50s while dropping at times into the 40s. also notified of blood pressure of 90/53. order for night po dose of cardizem confirmed to be given. patient is asymptomatic
[2021-07-17] VITALS (19 sets, daily range): BP systolic 79–103; BP diastolic 39–64; PULSE 50–100; RESP 14–24; TEMP 36.4–36.7; O2SAT 93–100; BMI 35.4
--- NOTE | 2021-07-17 03:00 | PC.NURSE ---
room air sat while sleeping 84%
[2021-07-17 05:55] LABS: POC Glucose,Bedside 101 (70-110)
[2021-07-17 06:04] LABS: Basophils % 0.7 % (0.1-2.0); Eosinophils # 0.3 K/mm3 (0.0-0.4); Hemoglobin 7.8 g/dL (12.2-16.2); Lymphocytes # 0.6 K/mm3 (0.7-4.5); Lymphocytes % 10.5 % (10-50); Mean Corpuscular HGB Conc 29.9 g/dL (31.8-35.4); Mean Corpuscular Hemoglobin 24.6 pg (27.0-31.2); Mean Corpuscular Volume 82.4 fl (81-99); Mean Platelet Volume 8.2 fl (7.4-10.4); Monocytes # 0.4 K/mm3 (0.1-1.0); Monocytes % 6.7 % (1.7-9.3); Neutrophils # 4.4 K/mm3 (1.8-7.8); Neutrophils % 77.2 % (37.0-80.0); Platelet Count 248 K/mm3 (142-424); Red Blood Count 3.16 M/mm3 (4.20-5.40); Red Cell Distribution Width 17.8 % (11.5-17.5); White Blood Count 5.7 K/mm3 (4.8-10.8)
[2021-07-17 06:12] LABS: Chloride 98 mmol/L (98-107)
[2021-07-17 06:13] LABS: Potassium 4.2 mmoL/L (3.5-5.1); Sodium 138 mmol/L (136-145)
[2021-07-17 06:16] LABS: Anion Gap 12.2 mEq/L (5-15); Blood Urea Nitrogen 42 mg/dl (7-17); Calcium 8.9 mg/dl (8.4-10.2); Carbon Dioxide 32 mmol/L (22.0-30.0); Creatinine Clearance Estimated 51 mL/min (50-200); Estimated Glomerular Filt Rate 29 ml/min (>60); GFR (African American) 35 ML/MIN (>60); Glucose 90 mg/dl (74-100)
--- NOTE | 2021-07-17 07:56 | HMH.ACPN2 ---
Internal Medicine - PN: Subj *Date: 07/17/21 *Time: 07:56 Interval history: Patient had a large bowel movement followed by several soft bowel movements yesterday, feels somewhat better, continues to feel like she cannot take a full, deep breath. Feels like her belly is still somewhat bloated. Exam Vital signs and Labs for Last 24 Hours: Temp Pulse Resp BP Pulse Ox 97.9 F 64 18 98/58 L 94 L 07/17/21 03:57 07/17/21 04:00 07/17/21 03:57 07/17/21 03:57 07/17/21 03:57 Laboratory Results - last 24 hr 07/16/21 05:17: POC Glucose 100 07/16/21 10:59: POC Glucose 127 H 07/16/21 16:43: POC Glucose 113 H 07/16/21 20:17: POC Glucose 169 H 07/17/21 05:39: POC Glucose 101 07/17/21 05:40: WBC 5.7, RBC 3.16 L, Hgb 7.8 L, Hct 26.0 L, MCV 82.4, MCH 24.6 L, MCHC 29.9 L, RDW 17.8 H, Plt Count 248, MPV 8.2, Neut % (Auto) 77.2, Lymph % (Auto) 10.5, [place] % (Auto) 6.7, Eos % (Auto) 5.0, Baso % (Auto) 0.7, Neut # (Auto) 4.4, Lymph # (Auto) 0.6 L, [place] # (Auto) 0.4, Eos # (Auto) 0.3, Baso # (Auto) 0.0 07/17/21 05:40: Sodium 138, Potassium 4.2, Chloride 98, Carbon Dioxide 32 H, Anion Gap 12.2, BUN 42 H, Creatinine 1.80 H, Estimated Creat Clear 51, Estimated GFR 29 L, Est GFR ( Amer) 35 L, Glucose 90, Calcium 8.9 I & O for Last 24 hours: Intake & Output 07/14/21 07/15/21 07/16/21 07/17/21 11:59 11:59 11:59 11:59 Intake Total 1610 / 1610 3103 / 3103 780 / 780 600 / 600 Output Total 500 / 500 2900 / 2900 Balance 1610 / 1610 2603 / 2603 -2120 / -2120 599 / 599 Weight 210 lb 5 oz 208 lb 1 oz 207 lb 8 oz Microbiology Reports for the Last 24 Hours: Microbiology 07/11/21 10:31 Blood Blood Culture - Final NO GROWTH AFTER 5 DAYS 07/11/21 10:00 Blood Blood Culture - Final NO GROWTH AFTER 5 DAYS Narrative: Pulse rate regular. Abdomen softer but still mildly distended. Lungs have good air movement and clear. No tracheal deviation. Oropharynx clear, no rash. Patient's fever curve has improved, neurologically intact. Assessment and Plan (1) Acute on chronic HFrEF (heart failure with reduced ejection fraction) Status: Acute Category: Medical Code(s): I50.23 - Acute on chronic systolic (congestive) heart failure (2) Anemia Status: Acute Qualifiers: Iron deficiency anemia type: unspecified iron deficiency Category: Medical Code(s): D64.9 - Anemia, unspecified (3) Febrile illness, acute Status: Acute Category: Medical Code(s): R50.9 - Fever, unspecified (4) SIRS (systemic inflammatory response syndrome) Status: Acute Category: Medical Code(s): R65.10 - Systemic inflammatory response syndrome (SIRS) of non-infectious origin without acute organ dysfunction (5) Polyarthralgia Status: Acute Category: Medical Code(s): M25.50 - Pain in unspecified joint (6) History of mitral valve replacement with mechanical valve Status: Chronic Category: Surgical Code(s): Z95.2 - Presence of prosthetic heart valve (7) 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 CHUCHO today. If CHUCHO looks good plan for discharge tomorrow as her her fever curve has improved, leukocytosis has not occurred, and we will continue Levaquin therapy. DT/OT evaluation after CHUCHO given her significant time in bed.
--- NOTE | 2021-07-17 09:07 | HMH.PTEV ---
Physical Therapy Evaluation Rehab PT IP Evaluation Start: 07/17/21 07:56 Freq: ONCE Status: Active Protocol: Document 07/17/21 08:59 PHONeliaMANJINDER (Rec: 07/17/21 09:06 PHOKENDALL [id number]) Subjective/History History History Pt is 56 year old femaled admitted to [facility] for sepsis. Subjective Subjective Pt reports 5/10 pain this morning. Pt states she lives alone in one level apartment on ground floor. Pt states she was independent before admittance to [facility] with no prior use of AD. Eval completed by NEETU Griffiths . Rehab PT IP Eval Objective Appearance Patient Behavior Appropriate,Cooperative Patient Orientation Place,Name,Birthday,Year Difficulty following instructions none Speech Pattern Clear,Appropriate,Coherent Ambulation Patient Able to Ambulate Yes Ambulation Observation IP General Gait Pattern Observation No Deviations/Normal Ambulation Distance (feet) 40 Ambulation Assistive Device None Ambulation Ability Supervision/Stand by Balance Ability to Arise Able, w/o using arms Sitting Balance Steady, safe Standing Balance Steady, wide stance Dynamic Sitting Balance Ability Normal Dynamic Standing Balance Ability Normal Transfers Bed Transfer Ability Supervision/Stand by Chair Transfer Ability Supervision/Stand by Sit to Stand Bed Transfer Ability Supervision/Stand by Sit to Stand Chair Transfer Ability Supervision/Stand by ROM All Extremities PT ROM Status WFL MMT All Extremities PT MMT WFL Rehab PT IP prob,goals,plan Problems Date of Evaluation: 07/17/21 Discharge Plan PT Discharge Plan Pt is safe to d/c home when medically stable. Pt is independent and ambulating at PLOF. G -code Required No Eval Complexity Eval Charge Codes 29302 - Moderate Complexity PHYSICIAN CERTIFICATION: I certify the specified therapy services for Irina Costa are required, authorized, and reviewed every 30 days.
--- NOTE | 2021-07-17 09:34 | HMH.ANESCL ---
[facility] Anesthesia Checklist - Patient Identification Patient Identification: Arm Band, Verbal (Name & ) - Structural Data Admitted From: Inpatient Planned Operative Procedure/s: CHUCHO Consent for Planned Operative Procedure(s) Verified: Yes Verified Documents: History and Physical - NPO Status Verified Time NPO: 00:00 - Chart Verification Results Verified: CBC, BMP - Additional verifications Patient : No Anesthesia Reactions: No Hx Blood Transfusions: No Blood Transfusion Reaction: Yes (NEEDS PREMEDICATED) Cephalosporin Allergy: No Previous Colonoscopy: Yes - Cardiovascular Assessment Pulse Strength: Baseline Peripheral Edema: No - Airway Assessment C-Spine Mobility Assessed: Yes TMJ Mobility Assessed: Yes Dentition: Good Dentition - Neurological Assessment Level of Consciousness: Awake, Alert, Appropriate Hx Seizures: No Numbness or tingling in extremities: No - Anesthesia Plan Anesthesia Risk discussed: Yes ASA Class: III Anesthesia Type: MAC [facility] History I have reviewed the patient's past medical history: Yes Medical History: Reports:: Arrhythmia, Atrial Fibrillation, Cardiomyopathy, Congestive Heart Failure, Chronic Obstructive Pulmonary Disease (COPD), Congenital Heart Disease, Deep Vein Thrombosis, Diabetes Mellitus Type 2, Gastroesophageal Reflux Disease(GERD), Hyperlipidemia, Hypertension Denies:: Cancer, Diabetes Mellitus Type 1, MRSA *Have you ever received a pneumonia vaccine?: Yes *Have you received a flu vaccine this season?: Yes Other Medical History: Reports: Anemia, Arthritis, Blood Transfusion Reaction (NEEDS PREMEDICATED), Hypothyroidism, Liver Disease, Sinus Problems, Thyroid Disease Anesthesia experience/problems:: none Other Surgeries: Yes: Cardiac Catheterization, Hernia Repair, Tubal Ligation, Other (Mitral valve replacement.) Amputation: No Fractures: No - *Social History Last grade of school completed: Advanced degree Smoking Status: Former smoker Tobacco Type: cigarettes Alcohol Intake: never Substance Use Type: denies use *Occupational Status:: disabled Household Members: none *Travel in the last 8 weeks: None Family Hx:: Anemia, Heart Attack, Hyperlipidemia, Hypertension, Kidney Disease, Mental illness
--- NOTE | 2021-07-17 09:48 | PC.NURSE ---
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
--- NOTE | 2021-07-17 10:04 | HMH.PNCARD ---
Subjective Date: 07/17/21 Time: 10:04 Principal diagnosis: CHF, anemia, febrile illness Interval history: 56-year-old white female in bed in no acute distress. Several bowel movements yesterday but still feels fullness to the point that she cannot take a deep breath. Patient is scheduled to undergo CHUCHO later this morning. She remains afebrile with no leukocytosis. Exam Vital signs and Labs for Last 24 Hours: Temp Pulse Resp BP Pulse Ox 98.0 F 77 24 96/61 L 94 L 07/17/21 08:00 07/17/21 08:00 07/17/21 08:00 07/17/21 08:00 07/17/21 08:00 Laboratory Results - last 24 hr 07/16/21 05:17: POC Glucose 100 07/16/21 10:59: POC Glucose 127 H 07/16/21 16:43: POC Glucose 113 H 07/16/21 20:17: POC Glucose 169 H 07/17/21 05:39: POC Glucose 101 07/17/21 05:40: WBC 5.7, RBC 3.16 L, Hgb 7.8 L, Hct 26.0 L, MCV 82.4, MCH 24.6 L, MCHC 29.9 L, RDW 17.8 H, Plt Count 248, MPV 8.2, Neut % (Auto) 77.2, Lymph % (Auto) 10.5, [place] % (Auto) 6.7, Eos % (Auto) 5.0, Baso % (Auto) 0.7, Neut # (Auto) 4.4, Lymph # (Auto) 0.6 L, [place] # (Auto) 0.4, Eos # (Auto) 0.3, Baso # (Auto) 0.0 07/17/21 05:40: Sodium 138, Potassium 4.2, Chloride 98, Carbon Dioxide 32 H, Anion Gap 12.2, BUN 42 H, Creatinine 1.80 H, Estimated Creat Clear 51, Estimated GFR 29 L, Est GFR ( Amer) 35 L, Glucose 90, Calcium 8.9 I & O for Last 24 hours: Intake & Output 07/14/21 07/15/21 07/16/21 07/17/21 11:59 11:59 11:59 11:59 Intake Total 1610 / 1610 3103 / 3103 780 / 780 600 / 600 Output Total 500 / 500 2900 / 2900 / Balance 1610 / 1610 2603 / 2603 -2120 / -2120 599 / 599 Weight 210 lb 5 oz 208 lb 1 oz 207 lb 8 oz Microbiology Reports for the Last 24 Hours: Microbiology 07/11/21 10:31 Blood Blood Culture - Final NO GROWTH AFTER 5 DAYS 07/11/21 10:00 Blood Blood Culture - Final NO GROWTH AFTER 5 DAYS - Constitutional no acute distress - *Routine HEENT Exam Head: Present: normocephalic Eye: Present: EOMI, PERRL ENT: Present: mucous membranes moist - *Routine Neck Exam Present: supple. Absent: lymphadenopathy - *Routine Respiratory Exam Present: CTA bilaterally - *Routine Cardiovascular Exam Present: RRR, click - *Routine Abdominal Exam Present: soft, normoactive bowel sounds. Absent: tenderness - *Routine Extremities Exam Absent: cyanosis, clubbing, edema - *Routine Skin Exam Present: warm. 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 Acute on chronic CHF, both systolic and diastolic, clinically stable. 2. Recurrent anemia, status post transfusion this admission with hemoglobin currently around 7.8 3. Clinical syndrome of fever and chills with suspected endocarditis versus contamination of 1 out of 2 blood cultures, remains on antibiotic therapy, no leukocytosis or elevated temperature during this admission. CHUCHO planned for this morning. 4. Constipation, improved 5. Mechanical mitral valve, on Coumadin therapy
--- NOTE | 2021-07-17 13:00 | CA_ITS ---
APPROVED REPORT EXAM: Comprehensive 2D, Doppler, and color-flow Echocardiogram Lithographic Etcher: Shakira White RT(R) Ht: 5 ft 4 in Wt: 208lbs BSA: 1.99 BP: 98/65 mmHg Indications: rule out endocarditis, CP, COPD, fatigue, DM, hyperlipidemia, CHF, AFIB, GERD, Fever, postive blood cultures, mechanical MV Procedure After obtaining informed consent, patient underwent transesophageal echo in the Principal Web Developer. Type of Sedation : Conscious Sedation Transesophageal probe was inserted and advanced into esophagus without difficulty by Dr. Eren Prescott. The CHUCHO was performed without complications. Throughout the procedure, the blood pressure, pulse oximetry, cardiac rhythm, and rate were monitored. The patient tolerated the procedure without adverse effects. Recovery from conscious sedation was uneventful and vital signs were stable. Left Ventricle Left ventricle is normal size, mild concentric left ventricular hypertrophy, visually estimated ejection fraction 50% with no regional wall motion abnormality in the obtained views. Right Ventricle Right ventricle is moderately enlarged with normal contractility. Atria Left atrium is moderately enlarged, left atrial appendage is free of thrombus, there is poor appendage flow by spectral Doppler. Right atrium is moderately enlarged. Intra-atrial septum is intact, there is no flow across the interatrial septum, agitated saline contrast study fails to identify intracardiac shunt. Aortic Valve Aortic valve is minimally thickened and fibrosed with mild restriction in the leaflet mobility, there is trace aortic insufficiency. Mitral Valve There is mechanical prosthetic valve noted in the mitral position, the valve is well-seated, there is no obvious valvular vegetation seen, there is mild mitral regurgitation seen. Tricuspid Valve Tricuspid valve leaflets are minimally thickened, there is no obvious vegetation seen on the tricuspid valve, there is moderate to severe tricuspid regurgitation. Pulmonic Valve Pulmonic valve is grossly normal. Great Vessels Aortic root is normal size. Ascending, arch and descending thoracic aorta there is no aneurysm or dissection. Pericardium No significant pericardial effusion noted. Conclusion 1. Normal left ventricular size, visually estimated ejection fraction 50% with no obvious regional wall motion abnormality. 2. No obvious valvular vegetation identified with this study. 3. Other ancillary findings as described above. Electronically signed by : Pedro Jacobsen MD 07/17/2021 15:20:11
--- NOTE | 2021-07-17 13:00 | SUR.OPER ---
pt brought down in wheelchair in stable condition and is prepped for justin.
--- NOTE | 2021-07-17 14:49 | SW/DCPLANNER ---
Addendum entered by Naye Dowell 07/18/21 14:10: Purvi with [facility] has called and stated they can not accept this patient due to insurance changing to [place] [employer] on 07/23/21. Patient information/order has been faxed to [facility]. Addendum entered by Naye Dowell 07/18/21 12:20: I have spoke Anne Marie linda/ Ellie and she has stated that portable O2 will be delivered today at 6PM. I will inform patients nurse of O2 plan. Patient will discharge home this evening. Addendum entered by Naye Dowell 07/18/21 09:42: Patient information/order has been faxed to [facility] out of [place] for home O2 + portable. I will follow up with [facility] once patient information is reviewed. Patient will discharge home later today. Original Note: RECEIVED REFERRAL FOR HOME HEALTH FOR PT/OT AND SKILLED NSG FOR THIS PATIENT.. DR TOVAR SAW PATIENT THIS AFTERNOON AND PATIENT AGREED TO HAVE SERVICES IN HER HOME.. THIS WAS SET UP WITH [facility].. PATIENT INFORMATION WAS FAXED AND I HAVE ASKED FOR THE NURSE TO MAKE CONTACT WITH PATIENT TO START SERVICES SOON POSSIBLE.. D/C WEDNESDAY PENDING NO SETBACKS.
--- NOTE | 2021-07-17 15:05 | HMH.OTEV ---
OT Inpatient Evaluation Rehab OT IP Evaluation Start: 07/17/21 07:56 Freq: ONCE Status: Complete Protocol: Document 07/17/21 15:02 DERRICK (Rec: 07/17/21 15:05 [facility] [id number]) Rehab OT IP Assessment Subjective History Pt oriented x 4 on arrival. Pt agreeable to engage in therapy evaluation. Pt was admitted via ED on 07/09/21 due to fever and chest pain after trying to flush out her port by hematology. Pt has a past medical history of Atrial Fibrillation, Congestive Heart Failure, Chronic Obstructive Pulmonary Disease (COPD), Diabetes Mellitus Type 2, Gastroesophageal Reflux Disease(GERD), Hyperlipidemia, Hypertension. Pt explains she was independent with all ADLs and IADLs prior to being in the hospital. She lived a lone and did not require any AE during ambulation. Subjective I am ready to go home. Objective Patient Orientation Person,Place,Birthday,Year Upper Extremity Gross ROM WFL Bed Mobility bed mobility-scooting,bed mobility - supine/sit,bed mobility - rolling Assist Level Supervision/Stand by Transfer Training Sit/Stand Transfer Assist Level Supervision/Stand by Chair Transfer Ability Supervision/Stand by Chair Transfer Technique Sit to/from Ambulatory Chair Transfer Assistive Devices None Lower Body Dressing Ability Standby Assistance Performing Toilet Hygiene Ability Standby Assistance Overall Commode/Toilet Transfer Ability Standby Assistance Commode/Toilet Transfer Technique Sit to/from Ambulatory Rehab OT IP prob,goals,plan Problems Date of Evaluation: 07/17/21 Rehab Potential Rehab Potential Innapropriate for Skilled Therapy Discharge Plan OT Discharge Plan Pt appears to be at her baseline functionally. Pt is safe to return home once medically stable per physician . Eval Complexity Eval Charge Codes 40332 - Moderate Complexity G Codes G -code Required No PHYSICIAN
--- NOTE | 2021-07-17 16:52 | PC.NURSE ---
No acute changes. Has done well post CHUCHO. Remains on 2 L O2 per nasal cannula, room air sat obtained this afternoon = 79% at rest. Remains afebrile. Medicated per JAN this AM for chronic pain. No other complaints voiced. Daughter was @ bedside to speak to Dr. Castro after CHUCHO about DC. No further needs. Currently sitting up on side of bed awaiting dinner tray.
[2021-07-18] VITALS (27 sets, daily range): BP systolic 91–129; BP diastolic 48–77; PULSE 70–86; RESP 15–18; TEMP 36.4–36.7; O2SAT 82–97; BMI 36.2
[2021-07-18 00:51] LABS: POC Glucose,Bedside 160 (70-110)
[2021-07-18 00:53] LABS: POC Glucose,Bedside 90 (70-110)
[2021-07-18 00:53] LABS: POC Glucose,Bedside 106 (70-110)
--- NOTE | 2021-07-18 04:05 | PC.NURSE ---
She is A&Ox4. She has ambulated independently to the bathroom with steady gait. She received PRN medication for pain in her neck, shouders, and head. She continues on 2LPM n/c. Afib on telemetry.
[2021-07-18 05:49] LABS: Basophils % 0.7 % (0.1-2.0); Eosinophils # 0.2 K/mm3 (0.0-0.4); Eosinophils % 4.4 % (0.1-12.0); Hematocrit 26.4 % (37.0-47.0); Hemoglobin 7.9 g/dL (12.2-16.2); Lymphocytes # 0.5 K/mm3 (0.7-4.5); Lymphocytes % 10.1 % (10-50); Mean Corpuscular HGB Conc 29.9 g/dL (31.8-35.4); Mean Corpuscular Hemoglobin 24.9 pg (27.0-31.2); Mean Corpuscular Volume 83.3 fl (81-99); Mean Platelet Volume 8.1 fl (7.4-10.4); Monocytes # 0.3 K/mm3 (0.1-1.0); Monocytes % 6.5 % (1.7-9.3); Neutrophils # 3.9 K/mm3 (1.8-7.8); Neutrophils % 78.3 % (37.0-80.0); Platelet Count 256 K/mm3 (142-424); Red Blood Count 3.17 M/mm3 (4.20-5.40); Red Cell Distribution Width 17.8 % (11.5-17.5)
[2021-07-18 05:57] LABS: Prothrombin Time 33.5 seconds (10.1-12.5)
[2021-07-18 06:07] LABS: INR 3.09 (0.9-1.1)
[2021-07-18 06:52] LABS: Anion Gap 10.3 mEq/L (5-15); Blood Urea Nitrogen 34 mg/dl (7-17); Calcium 8.5 mg/dl (8.4-10.2); Carbon Dioxide 33 mmol/L (22.0-30.0); Chloride 100 mmol/L (98-107); Creatinine Clearance Estimated 58 mL/min (50-200); Estimated Glomerular Filt Rate 33 ml/min (>60); GFR (African American) 40 ML/MIN (>60); Glucose 99 mg/dl (74-100); Potassium 4.3 mmoL/L (3.5-5.1); Sodium 139 mmol/L (136-145)
--- NOTE | 2021-07-18 07:45 | HMH.DCSUM ---
General - General Admission date:: 07/09/21 Discharge date: 07/18/21 HPI HPI: 56-year-old female, history of autoimmune hemolytic anemia and cardiomyopathy secondary to above and chronic anemia and ischemic disease, who was at her oncologist office yesterday and her port access was attempted multiple times with lots of manipulation. This caused her a little bit of chest pain, and on her arrival home she began to have a lot of anterior and back oriented chest pain and developed fever and chills and body aches. Presented to the emergency department. She met criteria for sepsis with high fever, tachycardia and inflammatory markers. Chest x-ray and white count were normal, urinalysis was normal, blood cultures were done. Given criteria for sepsis she was admitted for Levaquin therapy, further culture monitoring and troponin trending. This morning she feels achy, like she has the flu and has a little bit of chest pain when she takes a deep breath. Hospital Course Hospital Course: 56-year-old female with multiple comorbidities including renal dysfunction, neck anemia, chronic anticoagulation secondary to bioprosthetic heart valve, CHF. Admitted for fever, TRISTAN, A. fib with RVR. Cardiology was consulted during admission, appreciate their assistance in care of this patient. -Received TTE and CHUCHO during admission. Given fever with no source, goal was to rule out endocarditis. Patient had no findings on imaging suspicious for endocarditis. -Patient's metoprolol was increased to 50 mg daily to improve rate control. Was also initiated on diltiazem however blood pressure remained soft during hospitalization. Discontinue diltiazem, may need further adjustment of metoprolol in the outpatient setting. - cardiac function preserved with EF of 50% on echo's -Continue diuresis with Bumex - Continue anticoagulation with Coumadin, goal INR 2.5 to 3.5 due to prosthetic valve Given the patient's positive blood culture for staph epidermidis. Repeat blood cultures were obtained. Cultures negative. Suspect this is likely contaminant versus actual infection. Given patient's prosthetic valve however and port dysfunction recently, CHUCHO pursued and antibiotics initiated through course with admission. Initially on vancomycin and Levaquin. Patient had no fever at all during hospitalization. No stigmata of endocarditis. No new murmurs. And negative echoes. Vanco stopped after 4 days. Levaquin stopped a day of discharge. TRISTAN on CKD -Improved with diuresis and transfusions. Close monitoring during hospitalization. At baseline of 1.6 on day of discharge Discussion with patient about hematology consult, will refer her to Dr. Benson as an outpatient Ongoing autoimmune anemia. 2 units of packed cells today. Patient overall has improved. Medically stable for discharge home. Examined day of discharge. We will plan for home health to assess for physical therapy needs. Close follow-up in the outpatient setting with both cardiology and our office. Objective Vital signs: Temp Pulse Resp BP Pulse Ox 97.9 F 85 15 91/55 L 96 07/18/21 04:00 07/18/21 04:00 07/18/21 04:00 07/18/21 04:00 07/18/21 04:00 no acute distress - *Routine HEENT Exam Head: Present: normocephalic Eye: Present: EOMI, PERRL ENT: Present: mucous membranes moist - *Routine Neck Exam Present: supple - *Routine Respiratory Exam Present: CTA bilaterally - *Routine Cardiovascular Exam Present: murmur, irregularly irregular - *Routine Abdominal Exam Present: soft, normoactive bowel sounds, distended (interval improvement). Absent: tenderness - *Routine Extremities Exam Absent: cyanosis, clubbing, edema - *Routine Skin Exam Present: warm. Absent: rash - Detailed Eye Exam Eyelids: Bilateral normal inspection Results Labs on day of discharge: Labs from last 24 hours 07/18/21 07/18/21 07/18/21 05:25 05:25 05:25 WBC 5.0 RBC 3.17 L
--- NOTE | 2021-07-18 09:35 | PC.NURSE ---
When rounding with Dr. Herbert, turned off Oxygen. Patient's RA sat at rest was 87%. JEREMIAH Hillman
--- NOTE | 2021-07-18 10:18 | HMH.PNCARD ---
Subjective Date: 07/18/21 Time: 10:18 Principal diagnosis: CHF, anemia, febrile illness Interval history: 56-year-old white female in bed in no acute distress. Slightly drowsy after recently receiving Benadryl in preparation for her blood transfusion. Denies any chest pain, pressure or tightness and states she actually feels a little bit better than she did on admission. Exam Vital signs and Labs for Last 24 Hours: Temp Pulse Resp BP Pulse Ox 97.9 F 75 16 106/77 L 96 07/18/21 10:12 07/18/21 10:12 07/18/21 10:12 07/18/21 10:12 07/18/21 10:12 Laboratory Results - last 24 hr 07/17/21 11:14: POC Glucose 106 07/17/21 15:53: POC Glucose 90 07/17/21 21:19: POC Glucose 160 H 07/18/21 05:25: WBC 5.0, RBC 3.17 L, Hgb 7.9 L, Hct 26.4 L, MCV 83.3, MCH 24.9 L, MCHC 29.9 L, RDW 17.8 H, Plt Count 256, MPV 8.1, Neut % (Auto) 78.3, Lymph % (Auto) 10.1, [place] % (Auto) 6.5, Eos % (Auto) 4.4, Baso % (Auto) 0.7, Neut # (Auto) 3.9, Lymph # (Auto) 0.5 L, [place] # (Auto) 0.3, Eos # (Auto) 0.2, Baso # (Auto) 0.0 07/18/21 05:25: Sodium 139, Potassium 4.3, Chloride 100, Carbon Dioxide 33 H, Anion Gap 10.3, BUN 34 H, Creatinine 1.60 H, Estimated Creat Clear 58, Estimated GFR 33 L, Est GFR ( Amer) 40 L, Glucose 99, Calcium 8.5 07/18/21 05:25: PT 33.5 H, INR 3.09 H 07/18/21 09:00: Blood Type O Positive, Antibody Screen Negative, Crossmatch (AHG) See Detail I & O for Last 24 hours: Intake & Output 07/15/21 07/16/21 07/17/21 07/18/21 11:59 11:59 11:59 11:59 Intake Total 3103 / 3103 780 / 780 600 / 600 2045 Output Total 500 / 500 2900 / 2900 Balance 2603 / 2603 -0 / -0 599 / 599 2045 Weight 210 lb 5 oz 208 lb 1 oz 207 lb 8 oz 212 lb 3 oz - Constitutional no acute distress - *Routine HEENT Exam Head: Present: normocephalic Eye: Present: EOMI, PERRL ENT: Present: mucous membranes moist - *Routine Neck Exam Present: supple. Absent: lymphadenopathy - *Routine Respiratory Exam Present: CTA bilaterally - *Routine Cardiovascular Exam Present: click, irregular rhythm - *Routine Abdominal Exam Present: soft, normoactive bowel sounds. Absent: tenderness - *Routine Extremities Exam Absent: cyanosis, clubbing, edema - *Routine Skin Exam Present: warm. Absent: rash - *Routine Neurological Exam Present: alert, oriented X3 Progress Note: A&P (1) Acute on chronic HFrEF (heart failure with reduced ejection fraction) Status: Acute (2) Anemia Problem details: acute on chronic Status: Acute (3) Febrile illness, acute Status: Acute (4) SIRS (systemic inflammatory response syndrome) Status: Acute (5) Polyarthralgia Status: Acute (6) History of mitral valve replacement with mechanical valve Status: Chronic (7) detention current use of anticoagulants with INR goal of 2.5-3.5 Status: Chronic (8) CKD (chronic kidney disease) stage 4, GFR 15-29 ml/min Status: Acute (9) Constipation Status: Acute Assessment and Plan for All Diagnoses:: Cardiac status stable with no definitive evidence of endocarditis by CHUCHO yesterday. Medication changes discussed with Dr. Herbert this morning including discontinuation of diltiazem and increasing metoprolol. Patient is receiving 2 units of blood today prior to discharge. Okay for discharge from cardiology standpoint with recommendation to follow-up in 2 weeks Home medications Aspirin 81 mg daily Coumadin as directed Metoprolol succinate XL increased to 50 mg daily Resume home dose of valsartan 80 mg daily Resume home dose of Bumex 2 mg twice daily Resume Farxiga 10 mg daily for congestive heart failure Resume spironolactone 25 mg daily on Wednesday and Wednesday and 50 mg on Wednesday and Wednesday
--- NOTE | 2021-07-18 12:44 | DIET.NUTRFU ---
Pt diet advanced to diabetic with no added salt at breakfast this am. PO intakes have improved with 75% at last meal. Pt has had bowel movements the last two days. POC glucose- 106, 90, 160. Will continue to monitor.
[2021-07-18 13:56] LABS: POC Glucose,Bedside 142 (70-110)
[2021-07-18 14:32] LABS: Potassium 4.4 mmoL/L (3.5-5.1)
--- NOTE | 2021-07-18 15:31 | PC.NURSE ---
Patient resting in bed. No s/s of distress this shift. Patient's vital signs remain at baseline. Patient is currently receiving her 2nd units of PRBC's and then plans to discharge home following her one hour post H/H check. Will continue to monitor.
[2021-07-18 17:46] LABS: POC Glucose,Bedside 121 (70-110)
[2021-07-18 18:26] LABS: Hematocrit 29.3 % (37.0-47.0)
[2021-07-18 18:28] LABS: Hemoglobin 8.9 g/dL (12.2-16.2)
== END 2021-07-18 18:35 | disposition home health service (06) | DRG 808 ==
LOC: ER 21:37 → 2ND 23:36
PROVIDERS: Internal Medicine Adolescent Medicine; Internal Medicine Cardiovascular Disease; Internal Medicine Pulmonary Disease; Admitting Provider Internal Medicine Adolescent Medicine; Emergency Provider Emergency Medicine; PCP Internal Medicine Adolescent Medicine; Visit Provider Internal Medicine Adolescent Medicine
DX: D59.10 Autoimmune hemolytic anemia, unspecified (principal); I50.43 Acute on chronic combined systolic (congestive) and diastolic (congestive) heart failure; I13.0 Hypertensive heart and chronic kidney disease with heart failure and stage 1 through stage 4 chronic kidney disease, or unspecified chronic kidney disease; N18.4 Chronic kidney disease, stage 4 (severe); N17.9 Acute kidney failure, unspecified; I48.20 Chronic atrial fibrillation, unspecified; I42.9 Cardiomyopathy, unspecified; Z79.01 Long term (current) use of anticoagulants; Z20.822 Contact with and (suspected) exposure to COVID-19; Z79.4 Long term (current) use of insulin; Z95.818 Presence of other cardiac implants and grafts; E11.22 Type 2 diabetes mellitus with diabetic chronic kidney disease; K59.00 Constipation, unspecified; E78.5 Hyperlipidemia, unspecified; Z95.2 Presence of prosthetic heart valve; I34.1 Nonrheumatic mitral (valve) prolapse; K21.9 Gastro-esophageal reflux disease without esophagitis; E03.9 Hypothyroidism, unspecified; M19.90 Unspecified osteoarthritis, unspecified site; J44.9 Chronic obstructive pulmonary disease, unspecified; Z87.891 Personal history of nicotine dependence
CPT/HCPCS: 36415; 71045; 71046; 74018; 80048; 80053; 80076; 81001; 82962; 83605; 83735; 83880; 84132; 84145; 84436; 84443; 84484; 85007; 85014; 85018; 85025; 85610; 85651; 86140; 86850; 87040; 87077; 87186; 87486; 87581; 87633; 87798; 93005; 93306; 93312; 94760; 96365; 96367; 97162; 97166; 99285; J1642; J1956; J3370; P9016; U0003

== ENCOUNTER 2021-07-24 11:02 | Outpatient (CLI) | payer MEDICARE, MEDICAID, SELFPAY ==
[2021-07-24 14:53] LABS: PHA INR Fingerstick 2.3 (0.9-1.1)
== END 2021-07-24 14:55 | disposition home or self-care (01) ==
LOC: ACC 11:06
PROVIDERS: PCP Internal Medicine Adolescent Medicine; Visit Provider Internal Medicine Adolescent Medicine
DX: Z51.11 Encounter for antineoplastic chemotherapy (principal); Z79.01 Long term (current) use of anticoagulants; Z95.2 Presence of prosthetic heart valve
CPT/HCPCS: 85610; 99211; G0463

== ENCOUNTER → 2021-07-31 10:54 | Outpatient (CLI) | payer MEDICARE, MEDICAID, SELFPAY ==
[2021-07-31 11:01] VITALS: BMI 33.1
[2021-07-31 11:39] LABS: Basophils % 0.5 % (0.1-2.0); Eosinophils # 0.3 K/mm3 (0.0-0.4); Eosinophils % 4.1 % (0.1-12.0); Hematocrit 31.4 % (37.0-47.0); Hemoglobin 9.5 g/dL (12.2-16.2); Lymphocytes # 0.4 K/mm3 (0.7-4.5); Lymphocytes % 7.4 % (10-50); Mean Corpuscular HGB Conc 30.2 g/dL (31.8-35.4); Mean Corpuscular Volume 82.9 fl (81-99); Mean Platelet Volume 8.5 fl (7.4-10.4); Monocytes # 0.3 K/mm3 (0.1-1.0); Monocytes % 5.6 % (1.7-9.3); Neutrophils % 82.4 % (37.0-80.0); Platelet Count 268 K/mm3 (142-424); Red Blood Count 3.79 M/mm3 (4.20-5.40); Red Cell Distribution Width 17.9 % (11.5-17.5)
--- NOTE | 2021-07-31 12:00 | PC.NURSE ---
1200-notified by jaimie rn for pt does not need blood transfusion per lab results;pt to return to clinic next week for f/u for lab results.
[2021-07-31 13:24] LABS: Alanine Aminotransferase 15 U/L (12-78); Albumin Level 4.2 g/dl (3.5-5.0); Albumin/Globulin Ratio 1.6 (1.1-1.8); Alkaline Phosphatase 111 U/L (38-126); Anion Gap 15.3 mEq/L (5-15); Aspartate Amino Transferase 23 U/L (14-36); Bilirubin,Total 0.7 mg/dl (0.2-1.3); Blood Urea Nitrogen 33 mg/dl (7-17); Calcium 9.4 mg/dl (8.4-10.2); Carbon Dioxide 32 mmol/L (22.0-30.0); Chloride 97 mmol/L (98-107); Creatinine Clearance Estimated 56 mL/min (50-200); Estimated Glomerular Filt Rate 36 ml/min (>60); GFR (African American) 43 ML/MIN (>60); Globulin 2.7 g/dL (1.3-3.2); Glucose 126 mg/dl (74-100); Lactate Dehydrogenase 224 U/L (313-618); Potassium 4.3 mmoL/L (3.5-5.1); Sodium 140 mmol/L (136-145); Total Protein,Serum 6.9 g/dl (6.3-8.2)
[2021-07-31 13:51] LABS: Iron 45 ug/dL (37-170)
[2021-07-31 14:00] LABS: Total Iron Binding Capacity 459 ug/dL (265-497)
[2021-07-31 14:01] LABS: Ferritin 14.4 ng/ml (11.1-264)
[2021-07-31 14:56] LABS: Vitamin B12 386 pg/mL (239-931)
[2021-07-31 15:00] LABS: Folate > 20.00 ng/mL
[2021-08-01 10:58] LABS: Haptoglobin 16 mg/dL (33-346)
== END ==
PROVIDERS: PCP Internal Medicine Adolescent Medicine; Visit Provider Internal Medicine Medical Oncology
DX: D64.9 Anemia, unspecified (principal)
CPT/HCPCS: 80053; 82607; 82728; 82746; 83010; 83540; 83550; 83615; 85025; J1642

== ENCOUNTER 2021-08-07 14:28 | Outpatient (CLI) | payer MEDICARE, MEDICAID, SELFPAY ==
[2021-08-07 14:31] VITALS: BMI 33.3
[2021-08-07 14:48] LABS: Basophils # 0.1 K/mm3 (0-0.2); Basophils % 0.6 % (0.1-2.0); Eosinophils # 0.4 K/mm3 (0.0-0.4); Eosinophils % 5.2 % (0.1-12.0); Hematocrit 32.3 % (37.0-47.0); Hemoglobin 9.9 g/dL (12.2-16.2); Lymphocytes # 1.1 K/mm3 (0.7-4.5); Lymphocytes % 14.7 % (10-50); Mean Corpuscular HGB Conc 30.6 g/dL (31.8-35.4); Mean Corpuscular Hemoglobin 25.1 pg (27.0-31.2); Mean Corpuscular Volume 82.2 fl (81-99); Mean Platelet Volume 8.1 fl (7.4-10.4); Monocytes # 0.5 K/mm3 (0.1-1.0); Neutrophils # 5.6 K/mm3 (1.8-7.8); Neutrophils % 73.4 % (37.0-80.0); Platelet Count 239 K/mm3 (142-424); Red Blood Count 3.92 M/mm3 (4.20-5.40); Red Cell Distribution Width 17.9 % (11.5-17.5); White Blood Count 7.7 K/mm3 (4.8-10.8)
== END 2021-08-07 15:00 | disposition home or self-care (01) ==
LOC: INF 14:30
PROVIDERS: PCP Internal Medicine Adolescent Medicine; Visit Provider Internal Medicine Medical Oncology
DX: D64.9 Anemia, unspecified (principal); D50.9 Iron deficiency anemia, unspecified; Z45.2 Encounter for adjustment and management of vascular access device
CPT/HCPCS: 85025; J1642

== ENCOUNTER 2021-08-08 17:25 | Emergency (ER) | payer MEDICARE, MEDICAID, SELFPAY ==
[2021-08-08 18:26] VITALS: BP 94/51; PULSE 75; RESP 18; TEMP 36.9; O2SAT 97; BMI 33.1
--- NOTE | 2021-08-08 18:30 | HMH.EDUTC ---
[facility] Disposition Clinical Impression: Viral syndrome, Chilling Disposition: Home, Self-Care Condition on Discharge: Good Instructions: DI for Viral Syndrome, DI for COVID-19 (Suspected or Confirmed ), Preventing the Spread of Coronavirus Discharge Instructions Additional Instructions: Drink plenty of fluids. Take tylenol for pain or fever or whatever you would normally take for this. Follow up with your regular doctor. GO TO THE ER FOR ANY WORSENING SYMPTOMS Quarantine until you know the results of your covid-19 test. If it is positive, the health department should call you and give you further instructions about your length of Quarantine and other things. Notify your school or workplace of your results and follow their instructions regarding return to work/school. Prescriptions: Cefdinir [Omnicef 300mg Capsule] 300 mg PO BID #20 cap Transmission Status: Received by [facility] Referrals: Reji Castro MD [Primary Care Provider] - Time of Disposition: 20:13 Medical Decision Making - Medical Records Medical records reviewed: No: I reviewed the patient's medical records. - Jeancarlos Inquiry Pt receiving controlled substance: No Vital Signs: 08/08/21 18:26 08/08/21 20:25 Temperature 98.5 F 98.5 F Temperature Source Oral Pulse Rate 75 Pulse Rate [Right Radial] 75 Respiratory Rate 18 18 Blood Pressure 94/51 L Blood Pressure [Right Arm] 94/51 L Blood Pressure Mean [Right Arm] 65 Blood Pressure Source [Right Arm] Automatic Cuff Blood Pressure Position [Right Arm] Sitting 02 Sat by Pulse Oximetry 97 Oxygen Delivery Method Room Air - Lab Data Lab Results 08/08/21 19:00: Strep Scn Rapid Clinic Negative 08/09/21 10:12: Urine Color Yellow, Urine Appearance Clear, Urine pH 6.5, Ur Specific [place] 1.025, Urine Protein Negative, Urine Glucose (UA) Negative, Urine Ketones Negative, Urine Blood Negative, Urine Nitrate Negative, Urine Bilirubin Negative, Urine Urobilinogen 0.2, Ur Leukocyte Esterase Negative Orders (Tests/Meds): ORDERS Category Date Time Status Blood Culture Stat Micro 08/08/21 19:42 Received Strep Screen Confirmation Stat Micro 08/08/21 19:00 Received [facility] HPI - General Stated complaint: CHEUNG,Body Aches,weakness Time Seen by Provider: 08/08/21 18:33 - History of Present Illness Provider Complaint: She states that for the past 2 days she has had chilling and she has felt bad. She has had a head ache also. Her pcp did an outpatinet order for a cbc due to her symptoms yesterday. She has a history of a blood issue that causes her to have to recieve blood transfusions at times. She has a left subclavian port-a-cath because of that. She states that 1 month ago she was hospitalized here for sepsis related to an infection of her port-a-cath site. She states that her portacath infection was treated and it go ok. Her port-a-cath was not changed last month when she was septic. - Related Data Home Medications Medication Instructions Recorded Confirmed aspirin 81 mg tablet,delayed 81 mg PO DAILY 12/01/17 08/07/21 release oxycodone-acetaminophen 10 mg-325 1 tab PO TIDP PRN tab 05/23/18 08/07/21 mg tablet folic acid 1 mg tablet 1 mg PO DAILY 05/31/19 08/07/21 alprazolam 0.5 mg tablet 0.5 mg PO TIDP PRN 11/29/19 08/07/21 bumetanide 2 mg tablet 2 mg PO BID 07/03/20 08/07/21 citalopram 40 mg tablet 40 mg PO DAILY tab 03/31/21 08/07/21 famotidine 20 mg tablet 20 mg PO DAILY 04/22/21 08/07/21 Levothyroxine Sodium [Synthroid 25 mcg PO DAILY 06/05/21 08/07/21 25mcg (0.025mg) tablet] Dexlansoprazole [Dexilant] 60 mg PO DAILY 06/06/21 08/07/21 Ergocalciferol (Vitamin D2) 50,000 units PO MONTHLY 06/06/21 08/07/21 [Drisdol 50,000 units (1.25mg) capsule] Insulin Glargine,Hum.rec.anlog 80 units SQ DAILY 06/06/21 08/07/21 [Amanda Sellers] valsartan 80 mg tablet 80 mg PO DAILY tab 06/19/21 08/07/21 Olopatadine HCl 1 drp OU DAILY
[2021-08-08 20:25] VITALS: BP 94/51; PULSE 75; RESP 18; TEMP 36.9; O2SAT 97
[2021-08-09 10:07] LABS: UTC Strep Screen (Rapid) Negative (Negative)
[2021-08-09 10:12] LABS: Apearance,Urine Clear (Clear); Bilirubin,Urine Negative (Negative); Blood, Urine Negative (Negative); Color,Urine Yellow (Yellow); Glucose,Urine (UA) Negative (Negative); Ketones,Urine Negative (Negative); PH,Urine 6.5 (5.0-8.5); Protein,Urine Negative (Negative); Specific Gravity, Urine 1.025 (1.005-1.030); UTC Leukocyte Esterase,Urine Negative (Negative); UTC Nitrate,Urine Negative (Negative); Urobilinogen,Urine 0.2 EU/dl (0.2)
--- NOTE | 2021-08-09 17:56 | PC.NURSE ---
Lab called to notify staff of positive blood cultures. Aerobic staphlococcus mecca not detected. Reported to Neptali WOODS. 08/09/2021 at 1357. LB
== END 2021-08-08 20:28 | disposition home or self-care (01) ==
PROVIDERS: Emergency Provider Nurse Practitioner Family; PCP Internal Medicine Adolescent Medicine
DX: B34.9 Viral infection, unspecified (principal); Z20.822 Contact with and (suspected) exposure to COVID-19; I48.0 Paroxysmal atrial fibrillation; I50.9 Heart failure, unspecified; J44.9 Chronic obstructive pulmonary disease, unspecified; E03.9 Hypothyroidism, unspecified; E11.9 Type 2 diabetes mellitus without complications; I10 Essential (primary) hypertension; K21.9 Gastro-esophageal reflux disease without esophagitis; E78.5 Hyperlipidemia, unspecified; Z79.899 Other long term (current) drug therapy; Z88.8 Allergy status to other drugs, medicaments and biological substances
CPT/HCPCS: 81003; 87040; 87077; 87186; 87880; 99203; C9803; G0463; U0003; U0005

== ENCOUNTER 2021-09-04 08:58 | Outpatient (CLI) | payer MEDICARE, MEDICAID, SELFPAY ==
[2021-09-04 09:05] VITALS: BMI 32.9
[2021-09-04 09:28] LABS: Basophils # 0.1 K/mm3 (0-0.2); Basophils % 0.9 % (0.1-2.0); Eosinophils # 0.2 K/mm3 (0.0-0.4); Eosinophils % 3.1 % (0.1-12.0); Hematocrit 32.7 % (37.0-47.0); Hemoglobin 9.9 g/dL (12.2-16.2); Lymphocytes # 0.4 K/mm3 (0.7-4.5); Lymphocytes % 7.3 % (10-50); Mean Corpuscular HGB Conc 30.2 g/dL (31.8-35.4); Mean Corpuscular Hemoglobin 27.5 pg (27.0-31.2); Mean Corpuscular Volume 91.1 fl (81-99); Mean Platelet Volume 8.6 fl (7.4-10.4); Monocytes # 0.4 K/mm3 (0.1-1.0); Monocytes % 6.2 % (1.7-9.3); Neutrophils # 4.8 K/mm3 (1.8-7.8); Neutrophils % 82.5 % (37.0-80.0); Platelet Count 253 K/mm3 (142-424); Red Blood Count 3.59 M/mm3 (4.20-5.40); Red Cell Distribution Width 20.8 % (11.5-17.5); White Blood Count 5.8 K/mm3 (4.8-10.8)
[2021-09-04 09:36] LABS: Iron 52 ug/dL (37-170)
[2021-09-04 09:45] LABS: Total Iron Binding Capacity 376 ug/dL (265-497)
[2021-09-04 10:14] LABS: Ferritin 77.6 ng/ml (11.1-264)
== END 2021-09-04 09:25 | disposition home or self-care (01) ==
LOC: INF 09:01
PROVIDERS: PCP Internal Medicine Adolescent Medicine; Visit Provider Internal Medicine Medical Oncology
DX: D50.9 Iron deficiency anemia, unspecified (principal)
CPT/HCPCS: 82728; 83540; 83550; 85025

== ENCOUNTER 2021-09-09 09:01 | Outpatient (CLI) | payer MEDICARE, MEDICAID, SELFPAY ==
[2021-09-09 09:58] VITALS: BMI 34.3
[2021-09-09 10:47] LABS: Basophils % 0.6 % (0.1-2.0); Eosinophils # 0.2 K/mm3 (0.0-0.4); Eosinophils % 3.5 % (0.1-12.0); Hematocrit 33.2 % (37.0-47.0); Hemoglobin 9.9 g/dL (12.2-16.2); Lymphocytes # 0.4 K/mm3 (0.7-4.5); Lymphocytes % 7.6 % (10-50); Mean Corpuscular HGB Conc 29.8 g/dL (31.8-35.4); Mean Corpuscular Hemoglobin 27.4 pg (27.0-31.2); Mean Corpuscular Volume 91.9 fl (81-99); Mean Platelet Volume 7.7 fl (7.4-10.4); Monocytes # 0.4 K/mm3 (0.1-1.0); Monocytes % 6.1 % (1.7-9.3); Neutrophils # 4.8 K/mm3 (1.8-7.8); Neutrophils % 82.2 % (37.0-80.0); Platelet Count 234 K/mm3 (142-424); Red Blood Count 3.61 M/mm3 (4.20-5.40); Red Cell Distribution Width 19.4 % (11.5-17.5); White Blood Count 5.8 K/mm3 (4.8-10.8)
== END 2021-09-09 10:08 | disposition home or self-care (01) ==
PROVIDERS: Internal Medicine Medical Oncology; PCP Internal Medicine Adolescent Medicine; Visit Provider Internal Medicine Adolescent Medicine
DX: D64.9 Anemia, unspecified (principal)
CPT/HCPCS: 85025

== ENCOUNTER 2021-09-09 11:13 | Outpatient (CLI) | payer MEDICARE, MEDICAID, SELFPAY ==
[2021-09-09 12:22] LABS: Chloride 99 mmol/L (98-107); Potassium 3.9 mmoL/L (3.5-5.1); Sodium 142 mmol/L (136-145)
[2021-09-09 12:25] LABS: Anion Gap 14.9 mEq/L (5-15); Blood Urea Nitrogen 20 mg/dl (7-17); Calcium 9.3 mg/dl (8.4-10.2); Carbon Dioxide 32 mmol/L (22.0-30.0); Estimated Glomerular Filt Rate 51 ml/min (>60); GFR (African American) 62 ML/MIN (>60); Glucose 112 mg/dl (74-100)
[2021-09-09 15:17] LABS: PHA INR Fingerstick 3.2 (0.9-1.1)
[2021-09-10 08:46] LABS: NT Pro Brain Natriuretic Pep. 711 pg/mL (0-125)
== END 2021-09-09 16:33 | disposition home or self-care (01) ==
LOC: LAB 11:13
PROVIDERS: Internal Medicine Adolescent Medicine; Visit Provider Physician Assistant
DX: E11.9 Type 2 diabetes mellitus without complications (principal); I11.0 Hypertensive heart disease with heart failure; I50.23 Acute on chronic systolic (congestive) heart failure; I50.30 Unspecified diastolic (congestive) heart failure; I50.9 Heart failure, unspecified; R06.02 Shortness of breath; E78.5 Hyperlipidemia, unspecified; I07.1 Rheumatic tricuspid insufficiency; N18.1 Chronic kidney disease, stage 1; Z79.01 Long term (current) use of anticoagulants; Z95.2 Presence of prosthetic heart valve; Z79.4 Long term (current) use of insulin
CPT/HCPCS: 36415; 80048; 83880; 85025; 85610; 99211; G0463

== ENCOUNTER → 2021-09-23 13:55 | Outpatient (CLI) | payer MEDICARE, MEDICAID, SELFPAY ==
[2021-09-23 14:10] LABS: Microscopic, Urine URINE MICROSCOPIC (MICROSCOPIC)
[2021-09-23 14:29] LABS: Basophils % 0.6 % (0.1-2.0); Eosinophils # 0.3 K/mm3 (0.0-0.4); Eosinophils % 4.8 % (0.1-12.0); Hematocrit 32.2 % (37.0-47.0); Hemoglobin 9.5 g/dL (12.2-16.2); Lymphocytes # 0.7 K/mm3 (0.7-4.5); Lymphocytes % 11.5 % (10-50); Mean Corpuscular HGB Conc 29.5 g/dL (31.8-35.4); Mean Corpuscular Hemoglobin 26.4 pg (27.0-31.2); Mean Corpuscular Volume 89.5 fl (81-99); Mean Platelet Volume 8.4 fl (7.4-10.4); Monocytes # 0.4 K/mm3 (0.1-1.0); Monocytes % 6.4 % (1.7-9.3); Neutrophils # 4.3 K/mm3 (1.8-7.8); Neutrophils % 76.6 % (37.0-80.0); Platelet Count 246 K/mm3 (142-424); Red Cell Distribution Width 18.5 % (11.5-17.5); White Blood Count 5.6 K/mm3 (4.8-10.8)
[2021-09-23 14:47] LABS: Hemoglobin A1C 5.6 % (4.0-6.0)
[2021-09-23 15:06] LABS: Appearance,Urine CLEAR (Clear); Bilirubin,Urine Negative (Negative); Blood, Urine Negative (Negative); Color,Urine YELLOW (Yellow); Glucose,Urine (UA) Negative (Negative); Ketones,Urine Negative (Negative); Leukocyte Esterase,Urine Negative (Negative); Nitrate,Urine Negative (Negative); Protein,Urine Negative (Negative); Urobilinogen,Urine 0.2 EU/dl (0.2)
[2021-09-23 15:14] LABS: Creatinine,Urine Random 38 mg/dL (Not Estab.)
[2021-09-23 15:47] LABS: INR 2.82 (0.9-1.1); Prothrombin Time 29.5 seconds (10.1-12.5)
[2021-09-23 15:49] LABS: Alanine Aminotransferase 8 U/L (12-78); Albumin Level 4.2 g/dl (3.5-5.0); Albumin/Globulin Ratio 1.5 (1.1-1.8); Alkaline Phosphatase 98 U/L (38-126); Anion Gap 12.8 mEq/L (5-15); Aspartate Amino Transferase 19 U/L (14-36); Bilirubin,Total 0.8 mg/dl (0.2-1.3); Blood Urea Nitrogen 16 mg/dl (7-17); Calcium 9.3 mg/dl (8.4-10.2); Carbon Dioxide 33 mmol/L (22.0-30.0); Chloride 101 mmol/L (98-107); Estimated Glomerular Filt Rate 64 ml/min (>60); GFR (African American) 78 ML/MIN (>60); Globulin 2.8 g/dL (1.3-3.2); Glucose 72 mg/dl (74-100); Potassium 3.8 mmoL/L (3.5-5.1); Sodium 143 mmol/L (136-145); Uric Acid 11.4 mg/dl (2.5-6.2)
[2021-09-23 16:00] LABS: Intact Parathyroid Hormone 202.8 pg/mL (7.5-53.5)
[2021-09-23 16:04] LABS: 25-OH Vitamin D, Total 40.8 ng/mL (30-100)
== END ==
PROVIDERS: Internal Medicine Adolescent Medicine; Visit Provider Internal Medicine Nephrology
DX: N17.9 Acute kidney failure, unspecified (principal); N18.30 Chronic kidney disease, stage 3 unspecified; I12.9 Hypertensive chronic kidney disease with stage 1 through stage 4 chronic kidney disease, or unspecified chronic kidney disease; E11.22 Type 2 diabetes mellitus with diabetic chronic kidney disease; E55.9 Vitamin D deficiency, unspecified; E87.1 Hypo-osmolality and hyponatremia; E87.6 Hypokalemia; Z79.4 Long term (current) use of insulin; Z51.81 Encounter for therapeutic drug level monitoring; Z79.01 Long term (current) use of anticoagulants
CPT/HCPCS: 36415; 80053; 81001; 82306; 82570; 83036; 83970; 84155; 84550; 85025; 85610

== ENCOUNTER 2021-10-02 14:57 | Outpatient (CLI) | payer MEDICARE, MEDICAID, SELFPAY ==
[2021-10-02 15:01] VITALS: BMI 34.0
[2021-10-02 15:29] LABS: Chloride 91 mmol/L (98-107); Potassium 3.4 mmoL/L (3.5-5.1); Sodium 139 mmol/L (136-145)
[2021-10-02 15:32] LABS: Anion Gap 14.4 mEq/L (5-15); Blood Urea Nitrogen 31 mg/dl (7-17); Calcium 9.8 mg/dl (8.4-10.2); Carbon Dioxide 37 mmol/L (22.0-30.0); Creatinine Clearance Estimated 79 mL/min (50-200); Estimated Glomerular Filt Rate 51 ml/min (>60); GFR (African American) 62 ML/MIN (>60); Glucose 217 mg/dl (74-100)
== END 2021-10-02 15:15 | disposition home or self-care (01) ==
LOC: INF 14:58
PROVIDERS: PCP Internal Medicine Adolescent Medicine; Visit Provider Internal Medicine Cardiovascular Disease
DX: I48.91 Unspecified atrial fibrillation (principal); I50.9 Heart failure, unspecified; N18.30 Chronic kidney disease, stage 3 unspecified; Z79.01 Long term (current) use of anticoagulants; Z95.2 Presence of prosthetic heart valve; Z45.2 Encounter for adjustment and management of vascular access device
CPT/HCPCS: 80048; J1642

== ENCOUNTER → 2021-10-07 08:18 | Outpatient (CLI) | payer MEDICARE, MEDICAID, SELFPAY ==
[2021-10-08 08:54] LABS: Basophils # 0.1 K/mm3 (0-0.2); Basophils % 0.7 % (0.1-2.0); Eosinophils # 0.4 K/mm3 (0.0-0.4); Eosinophils % 5.3 % (0.1-12.0); Hematocrit 33.7 % (37.0-47.0); Hemoglobin 10.2 g/dL (12.2-16.2); Lymphocytes # 0.6 K/mm3 (0.7-4.5); Lymphocytes % 8.1 % (10-50); Mean Corpuscular HGB Conc 30.2 g/dL (31.8-35.4); Mean Corpuscular Hemoglobin 25.6 pg (27.0-31.2); Mean Platelet Volume 8.5 fl (7.4-10.4); Monocytes # 0.5 K/mm3 (0.1-1.0); Monocytes % 6.3 % (1.7-9.3); Neutrophils % 79.6 % (37.0-80.0); Platelet Count 310 K/mm3 (142-424); Red Blood Count 3.96 M/mm3 (4.20-5.40); Red Cell Distribution Width 17.1 % (11.5-17.5); White Blood Count 7.6 K/mm3 (4.8-10.8)
[2021-10-08 12:33] LABS: Chloride 87 mmol/L (98-107)
[2021-10-08 12:34] LABS: Potassium 3.7 mmoL/L (3.5-5.1); Sodium 134 mmol/L (136-145)
[2021-10-08 12:36] LABS: Blood Urea Nitrogen 65 mg/dl (7-17); Estimated Glomerular Filt Rate 39 ml/min (>60); GFR (African American) 47 ML/MIN (>60)
[2021-10-08 12:37] LABS: Anion Gap 16.7 mEq/L (5-15); Calcium 9.3 mg/dl (8.4-10.2); Carbon Dioxide 34 mmol/L (22.0-30.0); Glucose 397 mg/dl (74-100)
== END ==
PROVIDERS: Visit Provider Internal Medicine Adolescent Medicine
DX: I50.22 Chronic systolic (congestive) heart failure (principal); E03.9 Hypothyroidism, unspecified
CPT/HCPCS: 80048; 84443; 85025

== ENCOUNTER 2021-10-13 08:42 | Outpatient (CLI) | payer MEDICARE, MEDICAID, SELFPAY ==
[2021-10-13 08:52] VITALS: BMI 34.0
[2021-10-13 09:13] LABS: Basophils % 0.5 % (0.1-2.0); Eosinophils # 0.2 K/mm3 (0.0-0.4); Eosinophils % 2.4 % (0.1-12.0); Hematocrit 25.9 % (37.0-47.0); Lymphocytes # 0.5 K/mm3 (0.7-4.5); Mean Corpuscular HGB Conc 30.9 g/dL (31.8-35.4); Mean Corpuscular Hemoglobin 25.4 pg (27.0-31.2); Mean Corpuscular Volume 82.3 fl (81-99); Mean Platelet Volume 9.2 fl (7.4-10.4); Monocytes # 0.4 K/mm3 (0.1-1.0); Monocytes % 5.6 % (1.7-9.3); Neutrophils # 6.2 K/mm3 (1.8-7.8); Neutrophils % 84.5 % (37.0-80.0); Platelet Count 276 K/mm3 (142-424); Red Blood Count 3.14 M/mm3 (4.20-5.40); Red Cell Distribution Width 17.4 % (11.5-17.5); White Blood Count 7.3 K/mm3 (4.8-10.8)
[2021-10-13 09:16] LABS: Iron 37 ug/dL (37-170)
[2021-10-13 09:25] LABS: Total Iron Binding Capacity 443 ug/dL (265-497)
[2021-10-13 09:52] LABS: Ferritin 11.3 ng/ml (11.1-264)
[2021-10-13 10:33] VITALS: BP 120/81; PULSE 81; RESP 16; TEMP 36.5; O2SAT 97
[2021-10-13 11:20] VITALS: BP 120/58; PULSE 78; RESP 16; TEMP 36.4; O2SAT 97
== END 2021-10-13 11:25 | disposition home or self-care (01) ==
LOC: INF 08:43
PROVIDERS: PCP Internal Medicine Adolescent Medicine; Visit Provider Internal Medicine Medical Oncology
DX: D50.9 Iron deficiency anemia, unspecified (principal); Z45.2 Encounter for adjustment and management of vascular access device
CPT/HCPCS: 82728; 83540; 83550; 85025; 96365; J1439; J1642

== ENCOUNTER 2021-10-15 08:28 | Outpatient (CLI) | payer MEDICARE, MEDICAID, SELFPAY ==
[2021-10-15] VITALS (10 sets, daily range): BP systolic 109–138; BP diastolic 64–86; PULSE 76–84; RESP 17–18; TEMP 36.2–36.5; O2SAT 90–95; BMI 32.5
[2021-10-15 14:30] LABS: Hematocrit 25.1 % (37.0-47.0)
== END 2021-10-15 14:20 | disposition home or self-care (01) ==
LOC: INF 08:29
PROVIDERS: PCP Internal Medicine Adolescent Medicine; Visit Provider Internal Medicine Medical Oncology
DX: D64.9 Anemia, unspecified (principal)
CPT/HCPCS: 36430; 85014; 85018; 86850; J1642; P9016

== ENCOUNTER 2021-10-20 09:14 | Outpatient (CLI) | payer MEDICARE, MEDICAID, SELFPAY ==
[2021-10-20 09:23] VITALS: BMI 33.1
[2021-10-20 09:45] VITALS: BP 139/78; PULSE 76; RESP 18; O2SAT 96
[2021-10-20 09:59] LABS: Basophils % 0.6 % (0.1-2.0); Eosinophils # 0.2 K/mm3 (0.0-0.4); Eosinophils % 3.1 % (0.1-12.0); Hematocrit 27.7 % (37.0-47.0); Hemoglobin 8.5 g/dL (12.2-16.2); Lymphocytes # 0.4 K/mm3 (0.7-4.5); Lymphocytes % 6.1 % (10-50); Mean Corpuscular HGB Conc 30.7 g/dL (31.8-35.4); Mean Corpuscular Hemoglobin 26.2 pg (27.0-31.2); Mean Corpuscular Volume 85.5 fl (81-99); Mean Platelet Volume 7.9 fl (7.4-10.4); Monocytes # 0.3 K/mm3 (0.1-1.0); Monocytes % 4.6 % (1.7-9.3); Neutrophils # 5.9 K/mm3 (1.8-7.8); Neutrophils % 85.6 % (37.0-80.0); Platelet Count 237 K/mm3 (142-424); Red Blood Count 3.24 M/mm3 (4.20-5.40); Red Cell Distribution Width 21.1 % (11.5-17.5); White Blood Count 6.9 K/mm3 (4.8-10.8)
[2021-10-20 10:01] LABS: MANUAL DIFFERENTIAL MANUAL DIFFERENTIAL (MANUAL DIFF)
--- NOTE | 2021-10-20 10:26 | PC.NURSE ---
1026- dinah guajardo called rn at 1026 to report inr level 6.67 and pt level 65.5. rn repeated and verified pt name, , and lab value. result called to jazz louis and no new order received.
[2021-10-20 10:27] LABS: INR 6.67 (0.9-1.1)
[2021-10-20 10:28] LABS: Prothrombin Time 65.5 seconds (10.1-12.5)
[2021-10-20 10:54] LABS: Eosinophils % 3 % (0-3); Lymphocytes % 3 % (10-50); Monocytes % 7 % (2-9); Neutrophils % 86 % (42-76); Platelet Estimate Normal; Total Cells Counted 100
[2021-10-20 10:55] LABS: Hypochromasia 1+
[2021-10-20 11:30] VITALS: BP 132/77; PULSE 76; RESP 18
--- NOTE | 2021-10-20 13:41 | HMH.PHAINT ---
ACC-PATIENT RECEIVING IRON IN OUTPATIENT INFUSION. PT/INR WAS DRAWN THERE PATIENT WAS SCHEDULED FOR ACC ON 10/22/21. INR WAS 6.67. INSTRUCTED PATIENT TO TAKE 2.5 MG TODAY AND TOMORROW THEN TAKE WARFARIN 5 MG ON WED. WILL FOLLOW UP IN ACC AFTER CARDIOLOGY APPOINTMENT ON 10/24/21. CONTACTED DR. VASQUEZ WITH PLAN. PATIENT NOT HAVING ANY ISSUES WITH BRUISING OR BLEEDING AT THIS TIME. SOME BLOOD ON TOOTHBRUSH WHEN BRUSHING TEETH.
== END 2021-10-20 11:30 | disposition home or self-care (01) ==
PROVIDERS: Internal Medicine Adolescent Medicine; PCP Internal Medicine Adolescent Medicine; Visit Provider Internal Medicine Medical Oncology
DX: D50.9 Iron deficiency anemia, unspecified (principal); Z51.81 Encounter for therapeutic drug level monitoring; Z79.01 Long term (current) use of anticoagulants; Z95.2 Presence of prosthetic heart valve
CPT/HCPCS: 85007; 85025; 85610; 96365; 96366; J1439; J1642

== ENCOUNTER 2021-10-23 12:43 | Outpatient (CLI) | payer MEDICARE, MEDICAID, SELFPAY ==
[2021-10-23 13:58] LABS: INR 4.02 (0.9-1.1)
[2021-10-23 14:45] LABS: PHA INR Fingerstick 4.1 (0.9-1.1)
== END 2021-10-23 15:47 | disposition home or self-care (01) ==
PROVIDERS: Internal Medicine Adolescent Medicine; PCP Internal Medicine Adolescent Medicine; Visit Provider Internal Medicine Adolescent Medicine
DX: Z51.81 Encounter for therapeutic drug level monitoring (principal); Z79.01 Long term (current) use of anticoagulants; Z95.2 Presence of prosthetic heart valve
CPT/HCPCS: 36415; 85610; 99211; G0463

== ENCOUNTER 2021-10-29 10:40 | Outpatient (CLI) | payer MEDICARE, MEDICAID, SELFPAY ==
[2021-10-29 10:55] VITALS: BMI 33.1
[2021-10-29 11:18] LABS: Basophils % 0.6 % (0.1-2.0); Eosinophils # 0.3 K/mm3 (0.0-0.4); Eosinophils % 5.1 % (0.1-12.0); Hematocrit 27.9 % (37.0-47.0); Hemoglobin 8.9 g/dL (12.2-16.2); Lymphocytes # 0.3 K/mm3 (0.7-4.5); Lymphocytes % 6.2 % (10-50); Mean Corpuscular Hemoglobin 28.4 pg (27.0-31.2); Mean Corpuscular Volume 88.9 fl (81-99); Mean Platelet Volume 8.4 fl (7.4-10.4); Monocytes # 0.3 K/mm3 (0.1-1.0); Monocytes % 5.2 % (1.7-9.3); Neutrophils # 4.3 K/mm3 (1.8-7.8); Neutrophils % 82.9 % (37.0-80.0); Platelet Count 223 K/mm3 (142-424); Red Blood Count 3.13 M/mm3 (4.20-5.40); Red Cell Distribution Width 21.1 % (11.5-17.5); White Blood Count 5.2 K/mm3 (4.8-10.8)
[2021-10-29 11:29] LABS: INR 2.82 (0.9-1.1); Prothrombin Time 29.5 seconds (10.1-12.5)
--- NOTE | 2021-10-29 11:54 | HMH.PHAINT ---
ACC-PATIENT INR 2.82 TODAY VIA VENIPUNCTURE. PATIENT HAD BEEN TAKING REDUCED DOSE DUE TO RECENT ELEVATED INR. RECOMMENDED PATIENT TAKE WARFARIN 7.5 MG ON MON/FRI; 5 MG ON WED/WED/WED/WED/WED. WILL FOLLOW UP WITH PATIENT WHEN SHE HAS LAB DRAW ON 11/10/21.
== END 2021-10-29 11:45 | disposition home or self-care (01) ==
LOC: INF 10:41
PROVIDERS: PCP Internal Medicine Adolescent Medicine; Visit Provider Internal Medicine Medical Oncology
DX: D50.9 Iron deficiency anemia, unspecified (principal); Z79.01 Long term (current) use of anticoagulants; Z51.81 Encounter for therapeutic drug level monitoring
CPT/HCPCS: 85025; 85610; J1642

== ENCOUNTER 2021-11-06 12:40 | Outpatient (CLI) | payer MEDICARE, MEDICAID, SELFPAY ==
[2021-11-06 13:55] LABS: INR 4.22 (0.9-1.1); Prothrombin Time 42.9 seconds (10.1-12.5)
[2021-11-06 13:58] LABS: PHA INR Fingerstick 4.1 (0.9-1.1)
== END 2021-11-06 14:00 | disposition home or self-care (01) ==
PROVIDERS: PCP Internal Medicine Adolescent Medicine; Visit Provider Internal Medicine Adolescent Medicine
DX: Z51.81 Encounter for therapeutic drug level monitoring (principal); Z79.01 Long term (current) use of anticoagulants
CPT/HCPCS: 36415; 85610; 99211; G0463

== ENCOUNTER 2021-11-10 10:59 | Outpatient (CLI) | payer MEDICARE, MEDICAID, SELFPAY ==
[2021-11-10 11:17] VITALS: BMI 33.1
--- NOTE | 2021-11-10 11:27 | XR_ITS ---
PROCEDURE: XR CHEST 2V CLINICAL HISTORY: COUGH COMPARISON: CR XR CHEST PORTABLE from 06/23/2021 CR XR CHEST 2V from 07/09/2021 CR XR CHEST PORTABLE from 07/13/2021 FINDINGS: Severe cardiomegaly. No CHF. Prior MVR. Right MediPort catheter is present with tip in the region the SVC. No interstitial edema. No lobar consolidation or collapse. No effusions No acute bony abnormalities. IMPRESSION: Cardiomegaly. No acute infiltrates. Dictated by: Isreal Garcia MD 11/10/2021 12:37 Isreal Garcia MD in OV 11/10/2021 12:37
[2021-11-10 11:31] LABS: Basophils % 0.6 % (0.1-2.0); Eosinophils # 0.1 K/mm3 (0.0-0.4); Hematocrit 27.1 % (37.0-47.0); Hemoglobin 8.3 g/dL (12.2-16.2); Lymphocytes # 2.5 K/mm3 (0.7-4.5); Mean Corpuscular HGB Conc 30.7 g/dL (31.8-35.4); Mean Corpuscular Hemoglobin 27.8 pg (27.0-31.2); Mean Corpuscular Volume 90.4 fl (81-99); Mean Platelet Volume 8.6 fl (7.4-10.4); Monocytes # 0.5 K/mm3 (0.1-1.0); Monocytes % 7.3 % (1.7-9.3); Neutrophils # 3.5 K/mm3 (1.8-7.8); Neutrophils % 52.1 % (37.0-80.0); Platelet Count 225 K/mm3 (142-424); Red Cell Distribution Width 18.7 % (11.5-17.5); White Blood Count 6.7 K/mm3 (4.8-10.8)
[2021-11-10 11:37] LABS: Chloride 95 mmol/L (98-107); Sodium 138 mmol/L (136-145)
[2021-11-10 11:38] LABS: Potassium 3.5 mmoL/L (3.5-5.1)
[2021-11-10 11:40] LABS: Alanine Aminotransferase 15 U/L (12-78); Albumin Level 4.4 g/dl (3.5-5.0); Albumin/Globulin Ratio 1.7 (1.1-1.8); Alkaline Phosphatase 91 U/L (38-126); Anion Gap 14.5 mEq/L (5-15); Aspartate Amino Transferase 23 U/L (14-36); Bilirubin,Total 0.5 mg/dl (0.2-1.3); Blood Urea Nitrogen 31 mg/dl (7-17); Carbon Dioxide 32 mmol/L (22.0-30.0); Creatinine Clearance Estimated 65 mL/min (50-200); Estimated Glomerular Filt Rate 42 ml/min (>60); GFR (African American) 51 ML/MIN (>60); Globulin 2.6 g/dL (1.3-3.2)
[2021-11-10 11:41] LABS: Glucose 214 mg/dl (74-100)
[2021-11-10 12:09] LABS: INR 2.21 (0.9-1.1); Prothrombin Time 23.5 seconds (10.1-12.5)
== END 2021-11-10 12:15 | disposition home or self-care (01) ==
LOC: INF 11:00
PROVIDERS: Nurse Practitioner Family; PCP Internal Medicine Adolescent Medicine; Visit Provider Internal Medicine Medical Oncology
DX: R05.9 Cough, unspecified (principal); I48.91 Unspecified atrial fibrillation; Z45.2 Encounter for adjustment and management of vascular access device; Z51.81 Encounter for therapeutic drug level monitoring; Z79.01 Long term (current) use of anticoagulants; Z95.2 Presence of prosthetic heart valve
CPT/HCPCS: 71046; 80053; 85025; 85610; J1642

== ENCOUNTER 2021-11-13 09:14 | Outpatient (CLI) | payer MEDICARE, MEDICAID, SELFPAY ==
[2021-11-13 09:19] VITALS: BMI 32.5
[2021-11-13 09:40] LABS: Hematocrit 26.9 % (37.0-47.0); Hemoglobin 8.3 g/dL (12.2-16.2)
[2021-11-13 09:50] LABS: INR 2.51 (0.9-1.1); Prothrombin Time 26.5 seconds (10.1-12.5)
--- NOTE | 2021-11-13 10:24 | HMH.PHAINT ---
ACC-PATIENT HAD LAB DRAW IN OUTPATIENT INFUSION. INR WAS 2.51. RECOMMENDED PATIENT CONTINUE WITH WARFARIN 5 MG DAILY AT THIS TIME
--- NOTE | 2021-11-13 12:04 | PC.NURSE ---
1204-pt back from oncology appointment;collected new labs per md order; pt to wait on lab results
[2021-11-13 12:20] LABS: Chloride 96 mmol/L (98-107); Potassium 3.7 mmoL/L (3.5-5.1); Sodium 139 mmol/L (136-145)
[2021-11-13 12:21] LABS: Reticulocyte % (Auto) 3.5 % (0.9-3.2)
[2021-11-13 12:23] LABS: Alanine Aminotransferase 12 U/L (12-78); Albumin Level 4.5 g/dl (3.5-5.0); Albumin/Globulin Ratio 1.7 (1.1-1.8); Alkaline Phosphatase 93 U/L (38-126); Anion Gap 10.7 mEq/L (5-15); Aspartate Amino Transferase 23 U/L (14-36); Bilirubin,Direct 0.1 mg/dl (0.0-0.4); Bilirubin,Indirect 0.3 mg/dL (0.0-0.9); Bilirubin,Total 0.4 mg/dl (0.2-1.3); Bilirubin,Unconjugated 0.3 mg/dL (0.0-1.1); Blood Urea Nitrogen 32 mg/dl (7-17); Calcium 9.2 mg/dl (8.4-10.2); Carbon Dioxide 36 mmol/L (22.0-30.0); Creatinine Clearance Estimated 70 mL/min (50-200); Estimated Glomerular Filt Rate 46 ml/min (>60); GFR (African American) 56 ML/MIN (>60); Globulin 2.7 g/dL (1.3-3.2); Glucose 145 mg/dl (74-100); Iron 29 ug/dL (37-170); Total Protein,Serum 7.2 g/dl (6.3-8.2)
[2021-11-13 13:42] LABS: Ferritin 26.7 ng/ml (11.1-264)
== END 2021-11-13 12:36 | disposition home or self-care (01) ==
LOC: INF 09:15
PROVIDERS: PCP Internal Medicine Adolescent Medicine; Visit Provider Internal Medicine Medical Oncology
DX: D64.9 Anemia, unspecified (principal); Z51.81 Encounter for therapeutic drug level monitoring; Z79.01 Long term (current) use of anticoagulants; Z45.2 Encounter for adjustment and management of vascular access device
CPT/HCPCS: 80053; 80076; 82728; 83540; 85014; 85018; 85044; 85610; J1642

== ENCOUNTER 2021-11-17 09:15 | Outpatient (CLI) | payer MEDICARE, MEDICAID, SELFPAY ==
[2021-11-17 09:22] VITALS: BMI 32.9
[2021-11-17 09:43] LABS: Basophils % 0.5 % (0.1-2.0); Eosinophils # 0.3 K/mm3 (0.0-0.4); Eosinophils % 4.6 % (0.1-12.0); Hematocrit 25.1 % (37.0-47.0); Hemoglobin 7.6 g/dL (12.2-16.2); Lymphocytes # 0.4 K/mm3 (0.7-4.5); Lymphocytes % 6.6 % (10-50); Mean Corpuscular HGB Conc 30.4 g/dL (31.8-35.4); Mean Corpuscular Hemoglobin 26.2 pg (27.0-31.2); Mean Corpuscular Volume 86.2 fl (81-99); Mean Platelet Volume 8.7 fl (7.4-10.4); Monocytes # 0.4 K/mm3 (0.1-1.0); Monocytes % 5.2 % (1.7-9.3); Neutrophils # 5.5 K/mm3 (1.8-7.8); Neutrophils % 83.1 % (37.0-80.0); Platelet Count 273 K/mm3 (142-424); Red Blood Count 2.91 M/mm3 (4.20-5.40); Red Cell Distribution Width 19.5 % (11.5-17.5); White Blood Count 6.7 K/mm3 (4.8-10.8)
[2021-11-17 11:34] LABS: NT Pro Brain Natriuretic Pep. 956 pg/mL (0-125)
--- NOTE | 2021-11-17 12:01 | PC.NURSE ---
1200-notified cardiology office with bnp level; left message for essence acevedo aprn with [facility].
== END 2021-11-17 11:55 | disposition home or self-care (01) ==
LOC: INF 09:16
PROVIDERS: Urology; PCP Internal Medicine Adolescent Medicine; Visit Provider Internal Medicine Medical Oncology
DX: R06.02 Shortness of breath (principal); D64.9 Anemia, unspecified; Z45.2 Encounter for adjustment and management of vascular access device
CPT/HCPCS: 83880; 85025; 86850; 86870; J1642

== ENCOUNTER 2021-11-18 09:17 | Outpatient (CLI) | payer MEDICARE, MEDICAID, SELFPAY ==
[2021-11-18] VITALS (11 sets, daily range): BP systolic 104–139; BP diastolic 60–83; PULSE 70–79; RESP 18; TEMP 36–36.6; O2SAT 97–100; BMI 32.9
[2021-11-18 13:28] LABS: Hematocrit 26.1 % (37.0-47.0)
== END 2021-11-18 13:25 | disposition home or self-care (01) ==
LOC: INF 09:18
PROVIDERS: PCP Internal Medicine Adolescent Medicine; Visit Provider Internal Medicine Medical Oncology
DX: D50.9 Iron deficiency anemia, unspecified (principal)
CPT/HCPCS: 36430; 85014; 85018; J1642; P9016

== ENCOUNTER 2021-11-24 08:22 | Outpatient (CLI) | payer MEDICARE, MEDICAID, SELFPAY ==
[2021-11-24 08:40] VITALS: BP 134/81; PULSE 76; RESP 16; TEMP 36.6; O2SAT 97
[2021-11-24 08:47] VITALS: BMI 34.0
[2021-11-24 08:59] LABS: Basophils # 0.1 K/mm3 (0-0.2); Basophils % 0.7 % (0.1-2.0); Eosinophils # 0.4 K/mm3 (0.0-0.4); Eosinophils % 5.7 % (0.1-12.0); Hematocrit 27.7 % (37.0-47.0); Hemoglobin 8.6 g/dL (12.2-16.2); Lymphocytes # 0.5 K/mm3 (0.7-4.5); Lymphocytes % 7.4 % (10-50); Mean Corpuscular HGB Conc 31.2 g/dL (31.8-35.4); Mean Corpuscular Hemoglobin 26.2 pg (27.0-31.2); Mean Corpuscular Volume 84.1 fl (81-99); Mean Platelet Volume 8.5 fl (7.4-10.4); Monocytes # 0.5 K/mm3 (0.1-1.0); Monocytes % 6.8 % (1.7-9.3); Neutrophils # 5.4 K/mm3 (1.8-7.8); Neutrophils % 79.5 % (37.0-80.0); Platelet Count 284 K/mm3 (142-424); Red Cell Distribution Width 19.3 % (11.5-17.5); White Blood Count 6.8 K/mm3 (4.8-10.8)
[2021-11-24 09:11] LABS: INR 3.17 (0.9-1.1); Prothrombin Time 32.9 seconds (10.1-12.5)
[2021-11-24 09:30] VITALS: TEMP 36.6; O2SAT 100
== END 2021-11-24 09:32 | disposition home or self-care (01) ==
LOC: INF 08:24
PROVIDERS: PCP Internal Medicine Adolescent Medicine; Visit Provider Internal Medicine Medical Oncology
DX: D64.9 Anemia, unspecified (principal); Z79.01 Long term (current) use of anticoagulants; Z45.2 Encounter for adjustment and management of vascular access device
CPT/HCPCS: 85025; 85610; J1642

== ENCOUNTER 2021-12-09 09:38 | Outpatient (CLI) | payer MEDICARE, MEDICAID, SELFPAY ==
[2021-12-09 09:43] VITALS: BMI 33.1
--- NOTE | 2021-12-09 09:55 | PC.NURSE ---
PATTY CHARLTON CALLED RN AT 0955 TO REPORT HGB LEVEL OF 6.9. RN REPEATED AND VERIFIED PATIENT NAME, , AND LAB VALUE. RESULT CALLED TO [facility] AND STANDING ORDERS FOR 1 UNIT OF PRBC PLACED
[2021-12-09 10:05] LABS: Basophils # 0.1 K/mm3 (0-0.2); Basophils % 0.7 % (0.1-2.0); Eosinophils # 0.3 K/mm3 (0.0-0.4); Eosinophils % 4.1 % (0.1-12.0); Hematocrit 23.7 % (37.0-47.0); Lymphocytes # 0.5 K/mm3 (0.7-4.5); Lymphocytes % 6.3 % (10-50); Mean Corpuscular HGB Conc 29.2 g/dL (31.8-35.4); Mean Corpuscular Hemoglobin 23.4 pg (27.0-31.2); Mean Corpuscular Volume 80.1 fl (81-99); Mean Platelet Volume 8.3 fl (7.4-10.4); Monocytes # 0.3 K/mm3 (0.1-1.0); Monocytes % 4.5 % (1.7-9.3); Neutrophils # 6.4 K/mm3 (1.8-7.8); Neutrophils % 84.4 % (37.0-80.0); Platelet Count 299 K/mm3 (142-424); Red Blood Count 2.96 M/mm3 (4.20-5.40); Red Cell Distribution Width 20.2 % (11.5-17.5); White Blood Count 7.5 K/mm3 (4.8-10.8)
[2021-12-09 10:28] LABS: Hemoglobin 6.9 g/dL (12.2-16.2)
[2021-12-09 10:30] VITALS: BP 122/78; PULSE 68; RESP 20; TEMP 36.9; O2SAT 95
== END 2021-12-09 09:55 | disposition home or self-care (01) ==
LOC: INF 09:41
PROVIDERS: PCP Internal Medicine Adolescent Medicine; Visit Provider Internal Medicine Medical Oncology
DX: D64.9 Anemia, unspecified (principal)
CPT/HCPCS: 85025; 86850; 96523; J1642

== ENCOUNTER 2021-12-10 08:53 | Outpatient (CLI) | payer MEDICARE, MEDICAID, SELFPAY ==
[2021-12-10] VITALS (11 sets, daily range): BP systolic 99–131; BP diastolic 63–98; PULSE 76–83; RESP 16–18; TEMP 36.1–36.7; BMI 33.1
[2021-12-10 09:41] LABS: INR 2.84 (0.9-1.1); Prothrombin Time 29.7 seconds (10.1-12.5)
--- NOTE | 2021-12-10 10:02 | PC.NURSE ---
0959 - BLOOD TRANSFUSION STARTED AT 100 ML/HR AT THIS TIME.
--- NOTE | 2021-12-10 10:32 | PC.NURSE ---
0920 - PREMEDICATED WITH TYLENOL 650MG PO AND BENADRYL 25MG PO PRIOR TO BLOOD TRANSFUSION.
--- NOTE | 2021-12-10 10:35 | PC.NURSE ---
1029 - INCREASED RATE TO 150 ML/HR AT THIS TIME.
[2021-12-10 14:00] LABS: Hematocrit 24.3 % (37.0-47.0); Hemoglobin 7.4 g/dL (12.2-16.2)
== END 2021-12-10 13:35 | disposition home or self-care (01) ==
LOC: INF 08:54
PROVIDERS: PCP Internal Medicine Adolescent Medicine; Visit Provider Internal Medicine Medical Oncology
DX: Z79.01 Long term (current) use of anticoagulants; D50.9 Iron deficiency anemia, unspecified
CPT/HCPCS: 36430; 85014; 85018; 85610; J1642; P9016

== ENCOUNTER 2021-12-12 12:15 | Outpatient (CLI) | payer MEDICARE, MEDICAID, SELFPAY ==
[2021-12-12 12:15] VITALS: BMI 33.1
[2021-12-12 12:45] VITALS: BP 116/74; PULSE 68; RESP 20; TEMP 36.9; O2SAT 95
[2021-12-12 13:00] VITALS: BP 116/74; PULSE 68; RESP 20; TEMP 36.9; O2SAT 95
[2021-12-12 13:09] LABS: Hematocrit 23.4 % (37.0-47.0); Hemoglobin 7.3 g/dL (12.2-16.2)
--- NOTE | 2021-12-12 13:15 | PC.NURSE ---
PT CALLED TODAY NOT FEELING WELL; STANDING ORDER FOR BLOOD TRANSFUSION IF NEEDED; PT CAME IN AND GOT TYPED AND CROSSED AND WILL RETURN TOMORROW FOR BLOOD
[2021-12-13] VITALS (11 sets, daily range): BP systolic 99–141; BP diastolic 55–87; PULSE 65–85; RESP 18–20; TEMP 36.7–37.1; O2SAT 95–100
== END 2021-12-12 13:15 | disposition home or self-care (01) ==
LOC: INF 12:16
PROVIDERS: PCP Internal Medicine Adolescent Medicine; Visit Provider Internal Medicine Medical Oncology
DX: D50.9 Iron deficiency anemia, unspecified (principal); Z45.2 Encounter for adjustment and management of vascular access device
CPT/HCPCS: 85014; 85018; 86850; J1642; P9016

== ENCOUNTER 2021-12-13 09:14 | Outpatient (CLI) | payer MEDICARE, MEDICAID, SELFPAY ==
[2021-12-13 09:59] VITALS: BMI 35.5
--- NOTE | 2021-12-13 10:51 | PC.NURSE ---
Patient was ordered a type and cross for blood on 12/12 under v# [id number]. blood was issued under this v# as well. new visit on 12/13 that has transfusion order has different v#. Verified with Hayes Ramirez in lab. ok to proceed with transfusion. of blood on new v #.
--- NOTE | 2021-12-13 10:55 | PC.NURSE ---
pt states that she gets premedicated prior to transfusion. contacted Feliberto Serrano RN for Dr Benson. orders received for tylenol 650mg x 1 benadryl 25 x 1
[2021-12-13 15:42] LABS: Hematocrit 24.9 % (37.0-47.0); Hemoglobin 7.8 g/dL (12.2-16.2)
== END 2021-12-13 15:10 | disposition home or self-care (01) ==
LOC: INF 09:14
PROVIDERS: PCP Internal Medicine Adolescent Medicine; Visit Provider Internal Medicine Medical Oncology
DX: D50.9 Iron deficiency anemia, unspecified (principal)
CPT/HCPCS: 36430; 85014; 85018; J1642

== ENCOUNTER 2021-12-15 09:32 | Outpatient (CLI) | payer MEDICARE, MEDICAID, SELFPAY ==
[2021-12-15 09:37] VITALS: BMI 34.0
[2021-12-15 10:17] LABS: Basophils % 0.6 % (0.1-2.0); Eosinophils # 0.2 K/mm3 (0.0-0.4); Eosinophils % 3.7 % (0.1-12.0); Hematocrit 26.3 % (37.0-47.0); Hemoglobin 7.9 g/dL (12.2-16.2); Lymphocytes # 0.4 K/mm3 (0.7-4.5); Mean Corpuscular HGB Conc 30.2 g/dL (31.8-35.4); Mean Corpuscular Hemoglobin 24.2 pg (27.0-31.2); Mean Platelet Volume 9.3 fl (7.4-10.4); Monocytes # 0.3 K/mm3 (0.1-1.0); Monocytes % 5.6 % (1.7-9.3); Neutrophils # 4.9 K/mm3 (1.8-7.8); Neutrophils % 84.1 % (37.0-80.0); Platelet Count 248 K/mm3 (142-424); Red Blood Count 3.28 M/mm3 (4.20-5.40); Red Cell Distribution Width 20.8 % (11.5-17.5); White Blood Count 5.9 K/mm3 (4.8-10.8)
== END 2021-12-15 15:25 | disposition home or self-care (01) ==
LOC: INF 09:33
PROVIDERS: PCP Internal Medicine Adolescent Medicine; Visit Provider Internal Medicine Medical Oncology
DX: D64.9 Anemia, unspecified (principal)
CPT/HCPCS: 85025; 86850; J1642

== ENCOUNTER 2021-12-15 10:54 | Emergency (ER) | payer MEDICARE, MEDICAID, SELFPAY ==
--- NOTE | 2021-12-15 10:48 | ECG_ITS ---
APPROVED REPORT Exam: Resting ECG HR:79 bpm ECG Measurements Heart Rate 79 AXES QRSd 105 QRS 64 QT 410 T 72 QTc 445 Conclusion ATRIAL FIBRILLATION INCOMPLETE RIGHT BUNDLE BRANCH BLOCK [90+ ms QRS DURATION, TERMINAL R IN V1/V2, 40+ ms S IN I/aVL/V4/V5/V6] NONSPECIFIC T-WAVE ABNORMALITY ABNORMAL RHYTHM ECG UNCONFIRMED REPORT Electronically signed by : Reji Castro MD 12/15/2021 18:33:53
[2021-12-15 10:54] VITALS: BP 123/70; PULSE 82; RESP 16; TEMP 36.8; O2SAT 98; BMI 34.0
[2021-12-15 11:01] VITALS: BMI 34.0
--- NOTE | 2021-12-15 11:01 | XR_ITS ---
FINAL REPORT CLINICAL HISTORY: soa, chest pain FINDINGS: There is moderate to marked cardiomegaly. A right-sided chest port terminates in the SVC. There has been prior median sternotomy. There are mild chronic changes in both lungs. There is no pleural effusion. There is no pneumothorax. IMPRESSION: No acute cardiopulmonary process. Reviewed, Interpreted and Dictated by Urbano Gracia MD Transcribed by Luciano Soriano Authenticated by Urbano Gracia MD on 12/15/2021 04:38:58 PM [facility]
--- NOTE | 2021-12-15 11:03 | HMH.EDGENADL ---
ED Disposition Clinical Impression: Atypical chest pain Disposition: Home, Self-Care Condition on Discharge: Good Instructions: DI for Atypical Chest Pain Additional Instructions: follow up cardiology, return for worse - Critical Care Critical Care Time: No Attestation: On , the high probability of a clinically significant, sudden or life threatening deterioration of the following system(s) required my full and direct attention, intervention and personal management. The time I documented below is in addition to time spent performing reported procedures but includes the following listed in this critical care notation. Medical Decision Making - Medical Records Medical records reviewed: Yes: I reviewed the patient's medical records. - Jeancarlos Inquiry Pt receiving controlled substance: No Vital Signs: 12/15/21 10:54 Temperature 98.3 F Temperature Source Oral Pulse Rate [Right] 82 Respiratory Rate 16 Blood Pressure [Right Arm] 123/70 Blood Pressure Mean [Right Arm] 87 Blood Pressure Source [Right Arm] Automatic Cuff Blood Pressure Position [Right Arm] Sitting 02 Sat by Pulse Oximetry 98 Oxygen Delivery Method Room Air - Lab Data Lab Results 12/15/21 10:55: WBC 6.4, RBC 3.21 L, Hgb 7.9 L, Hct 25.9 L, MCV 80.8 L, MCH 24.6 L, MCHC 30.4 L, RDW 20.9 H, Plt Count 246, MPV 8.7, Neut % (Auto) 83.8 H, Lymph % (Auto) 7.1 L, [place] % (Auto) 5.1, Eos % (Auto) 3.5, Baso % (Auto) 0.5, Neut # (Auto) 5.4, Lymph # (Auto) 0.5 L, [place] # (Auto) 0.3, Eos # (Auto) 0.2, Baso # (Auto) 0.0 12/15/21 10:55: Sodium 137, Potassium 3.8, Chloride 94 L, Carbon Dioxide 33 H, Anion Gap 13.8, BUN 35 H, Creatinine 1.10 H, Estimated Creat Clear 79, Estimated GFR 51 L, Est GFR ( Amer) 62, Glucose 196 H, Calcium 9.1, Troponin I < 0.01 12/15/21 10:55: PT 34.2 H, INR 3.31 H 12/15/21 11:01: SARS-CoV-2 (PCR) Not detected, Influenza A Untype (PCR) Not detected, Influenza Type B (PCR) Not detected 12/15/21 13:15: Troponin I < 0.01 Result diagrams: 12/15/21 10:55 12/15/21 10:55 Orders (Tests/Meds): ED MEDICATIONS Discontinued Medications Generic Name Dose Route Start Last Admin Trade Name Mónica PRN Reason Stop Dose Admin Aspirin 243 mg 12/15/21 11:03 12/15/21 11:29 Aspirin 81mg Chewable Tablet PO 12/15/21 11:04 243 mg ONCE ONE Administration ORDERS Category Date Time Status XR chest portable Stat Exams 12/15/21 11:01 Taken Troponin I Q3H Lab 12/15/21 17:15 Ordered - ECG Data Tracing #1 ekg by me afib 79, irbbb, no st elev Medical Decision Narrative: reeval, appears well, stable anemia has blood transfuson sched for tomorrow, pain today seems related to chronic neck and shoulder pain, says she had a heart cath w/o intervention, ok with plan to f/u cardiologuy and return for worse General Adult HPI - General Stated complaint: chest pain Time Seen by Provider: 12/15/21 11:03 - History of Present Illness HPI narrative: says she is having intermittent cp sharp in nature localized several days assoc with chronic neck and shoulder pain Radiation: non-radiation Severity: moderate Consistency: intermittent Relieving factors: none Exacerbating factors: movement Associated symptoms: denies other symptoms - Related Data Home Medications Medication Instructions Recorded Confirmed aspirin 81 mg tablet,delayed 81 mg PO DAILY 12/01/17 12/15/21 release oxycodone-acetaminophen 10 mg-325 1 tab PO TIDP PRN tab 05/23/18 12/15/21 mg tablet alprazolam 0.5 mg tablet 0.5 mg PO TIDP PRN 11/29/19 12/15/21 citalopram 40 mg tablet 40 mg PO DAILY tab 03/31/21 12/15/21 famotidine 20 mg tablet 20 mg PO DAILY 04/22/21 12/15/21 Levothyroxine Sodium [Synthroid 25 mcg PO DAILY 06/05/21 12/15/21 25mcg (0.025mg) tablet] Dexlansoprazole [Dexilant] 60 mg PO DAILY 06/06/21 12/15/21 Ergocalciferol (Vitamin D2) 50,000 units PO MONTHLY 06/06/21 12/15/21 [Drisdol 50,000 units (1.25mg) capsule] Old[place]
[2021-12-15 11:12] LABS: Chloride 94 mmol/L (98-107); Potassium 3.8 mmoL/L (3.5-5.1); Sodium 137 mmol/L (136-145)
[2021-12-15 11:13] LABS: Coronavirus 19, PCR Not Detected (NotDetected); Influenza A, PCR Not Detected (NotDetected); Influenza B, PCR Not Detected (NotDetected)
[2021-12-15 11:15] LABS: Anion Gap 13.8 mEq/L (5-15); Blood Urea Nitrogen 35 mg/dl (7-17); Carbon Dioxide 33 mmol/L (22.0-30.0); Creatinine Clearance Estimated 79 mL/min (50-200); Estimated Glomerular Filt Rate 51 ml/min (>60); GFR (African American) 62 ML/MIN (>60)
[2021-12-15 11:16] LABS: Basophils % 0.5 % (0.1-2.0); Calcium 9.1 mg/dl (8.4-10.2); Eosinophils # 0.2 K/mm3 (0.0-0.4); Eosinophils % 3.5 % (0.1-12.0); Glucose 196 mg/dl (74-100); Hematocrit 25.9 % (37.0-47.0); Hemoglobin 7.9 g/dL (12.2-16.2); Lymphocytes # 0.5 K/mm3 (0.7-4.5); Lymphocytes % 7.1 % (10-50); Mean Corpuscular HGB Conc 30.4 g/dL (31.8-35.4); Mean Corpuscular Hemoglobin 24.6 pg (27.0-31.2); Mean Corpuscular Volume 80.8 fl (81-99); Mean Platelet Volume 8.7 fl (7.4-10.4); Monocytes # 0.3 K/mm3 (0.1-1.0); Monocytes % 5.1 % (1.7-9.3); Neutrophils # 5.4 K/mm3 (1.8-7.8); Neutrophils % 83.8 % (37.0-80.0); Platelet Count 246 K/mm3 (142-424); Red Blood Count 3.21 M/mm3 (4.20-5.40); Red Cell Distribution Width 20.9 % (11.5-17.5); White Blood Count 6.4 K/mm3 (4.8-10.8)
--- NOTE | 2021-12-15 11:21 | PC.NURSE ---
Radiology at bedside
[2021-12-15 11:22] LABS: INR 3.31 (0.9-1.1); Prothrombin Time 34.2 seconds (10.1-12.5)
--- NOTE | 2021-12-15 11:23 | PC.NURSE ---
Patient ambulatory to restroom
[2021-12-15 11:28] LABS: Troponin I < 0.01 ng/ml (0.00-0.034)
[2021-12-15 13:54] LABS: Troponin I < 0.01 ng/ml (0.00-0.034)
[2021-12-15 14:31] VITALS: BP 124/70; PULSE 84; RESP 16; TEMP 36.8; O2SAT 98
== END 2021-12-15 14:47 | disposition home or self-care (01) ==
PROVIDERS: Emergency Provider Emergency Medicine; PCP Internal Medicine Adolescent Medicine
DX: R07.89 Other chest pain (principal); M54.2 Cervicalgia; Z20.822 Contact with and (suspected) exposure to COVID-19; I48.91 Unspecified atrial fibrillation; J44.9 Chronic obstructive pulmonary disease, unspecified; E11.9 Type 2 diabetes mellitus without complications; K21.9 Gastro-esophageal reflux disease without esophagitis; I10 Essential (primary) hypertension; E78.5 Hyperlipidemia, unspecified; E03.9 Hypothyroidism, unspecified; Z87.891 Personal history of nicotine dependence
CPT/HCPCS: 71045; 80048; 84484; 85025; 85610; 86850; 93005; 99283; C9803; J1642; U0003; U0005

== ENCOUNTER 2021-12-16 08:38 | Outpatient (CLI) | payer MEDICARE, MEDICAID, SELFPAY ==
[2021-12-16] VITALS (13 sets, daily range): BP systolic 110–125; BP diastolic 64–74; PULSE 60–85; RESP 20; TEMP 36.1–36.9; O2SAT 90–97; BMI 34.0
[2021-12-16 09:28] LABS: Iron 32 ug/dL (37-170)
[2021-12-16 09:37] LABS: Total Iron Binding Capacity 398 ug/dL (265-497)
[2021-12-16 10:06] LABS: Ferritin 6.75 ng/ml (11.1-264)
[2021-12-16 13:34] LABS: Hematocrit 28.2 % (37.0-47.0); Hemoglobin 8.6 g/dL (12.2-16.2)
== END 2021-12-16 13:15 | disposition home or self-care (01) ==
LOC: INF 08:39
PROVIDERS: PCP Internal Medicine Adolescent Medicine; Visit Provider Internal Medicine Medical Oncology
DX: D50.0 Iron deficiency anemia secondary to blood loss (chronic) (principal)
CPT/HCPCS: 36430; 82728; 83540; 83550; 85014; 85018; J1642; P9016

== ENCOUNTER 2021-12-19 10:43 | Outpatient (CLI) | payer MEDICARE, MEDICAID, SELFPAY ==
[2021-12-19 11:10] VITALS: BP 117/65; PULSE 81; RESP 16; TEMP 35.9; O2SAT 98
[2021-12-19 11:50] VITALS: BP 136/76; PULSE 84; RESP 16
== END 2021-12-19 12:00 | disposition home or self-care (01) ==
LOC: INF 10:44
PROVIDERS: PCP Internal Medicine Adolescent Medicine; Visit Provider Internal Medicine Medical Oncology
DX: D50.9 Iron deficiency anemia, unspecified (principal)
CPT/HCPCS: 96365; J1439; J1642

== ENCOUNTER 2021-12-23 09:21 | Outpatient (CLI) | payer MEDICARE, MEDICAID, SELFPAY ==
[2021-12-23] VITALS (10 sets, daily range): BP systolic 129–159; BP diastolic 62–97; PULSE 69–86; RESP 16; TEMP 36.3–36.7; O2SAT 93–97; BMI 34.0
[2021-12-23 09:50] LABS: Basophils # 0.1 K/mm3 (0-0.2); Basophils % 0.7 % (0.1-2.0); Eosinophils # 0.2 K/mm3 (0.0-0.4); Eosinophils % 2.6 % (0.1-12.0); Hematocrit 25.6 % (37.0-47.0); Hemoglobin 7.9 g/dL (12.2-16.2); Lymphocytes # 0.4 K/mm3 (0.7-4.5); Lymphocytes % 5.2 % (10-50); Mean Corpuscular Hemoglobin 25.2 pg (27.0-31.2); Mean Corpuscular Volume 81.2 fl (81-99); Mean Platelet Volume 9.2 fl (7.4-10.4); Monocytes # 0.4 K/mm3 (0.1-1.0); Monocytes % 4.9 % (1.7-9.3); Neutrophils # 7.2 K/mm3 (1.8-7.8); Neutrophils % 86.5 % (37.0-80.0); Platelet Count 276 K/mm3 (142-424); Red Blood Count 3.16 M/mm3 (4.20-5.40); Red Cell Distribution Width 24.4 % (11.5-17.5); White Blood Count 8.3 K/mm3 (4.8-10.8)
[2021-12-23 09:53] LABS: MANUAL DIFFERENTIAL MANUAL DIFFERENTIAL (MANUAL DIFF)
[2021-12-23 11:15] LABS: Eosinophils % 1 % (0-3); Hypochromasia 2+; Lymphocytes % 5 % (10-50); Monocytes % 4 % (2-9); Neutrophils % 90 % (42-76); Platelet Estimate Normal; Total Cells Counted 100
--- NOTE | 2021-12-23 15:04 | PC.NURSE ---
Lung sounds clear and equal b/l throughout all lobes
== END 2021-12-23 15:05 | disposition home or self-care (01) ==
LOC: INF 09:21
PROVIDERS: PCP Internal Medicine Adolescent Medicine; Visit Provider Internal Medicine Medical Oncology
DX: D64.9 Anemia, unspecified (principal)
CPT/HCPCS: 36430; 85007; 85025; 86850; J1642; P9016

== ENCOUNTER 2021-12-24 10:00 | Outpatient (CLI) | payer MEDICARE, MEDICAID, SELFPAY ==
[2021-12-24 10:20] VITALS: BMI 34.0
[2021-12-24 10:25] VITALS: BP 127/70; PULSE 79; RESP 16
[2021-12-24 11:25] VITALS: BP 99/68; PULSE 74; RESP 16
[2021-12-24 12:23] LABS: Prothrombin Time 48.3 seconds (10.1-12.5)
--- NOTE | 2021-12-24 12:23 | PC.NURSE ---
1223-Shea mccarty called rn at 1223 to report PT 48.3 and INR 4.8. Rn repeated and verified pt name, , and lab value. Result called to pharm jay jay Raines with the coumadin clinic and no new orders received, stated he would call and speak to patient.
[2021-12-24 12:29] LABS: Hematocrit 29.1 % (37.0-47.0); Hemoglobin 8.9 g/dL (12.2-16.2)
--- NOTE | 2021-12-24 14:22 | HMH.PHAINT ---
ACC-INR 4.80 TODAY VIA VENIPUNCTURE. PATIENT HAS BEEN TAKING WARFARIN 5 MG DAILY BUT HAS RECEIVED 4 UNITS OF BLOOD IN THE LAST 2 WEEKS. HAVING PATIENT TAKE WARFARIN 2.5 MG DAILY X3 DAYS THEN RESUME 5 MG DAILY. WILL HAVE BLOOD DRAW NEXT WEDNESDAY, SO WILL HAVE INR CHECKED AT THAT TIME.
--- NOTE | 2021-12-24 16:01 | PC.NURSE ---
1030 - PT REQUESTED INJECTOFER TO INFUSE OVER 1 HR SO RATE WAS SLOWED DOWN TO 250 ML/HR AT THIS TIME.
== END 2021-12-24 11:55 | disposition home or self-care (01) ==
LOC: INF 10:01
PROVIDERS: PCP Internal Medicine Adolescent Medicine; Visit Provider Internal Medicine Medical Oncology
DX: D50.0 Iron deficiency anemia secondary to blood loss (chronic) (principal); Z51.81 Encounter for therapeutic drug level monitoring; Z79.01 Long term (current) use of anticoagulants
CPT/HCPCS: 85014; 85018; 85610; 96365; J1439; J1642

== ENCOUNTER 2021-12-30 09:49 | Outpatient (CLI) | payer MEDICARE, MEDICAID, SELFPAY ==
[2021-12-30 09:59] VITALS: BMI 33.1
[2021-12-30 10:44] LABS: Basophils # 0.1 K/mm3 (0-0.2); Basophils % 0.8 % (0.1-2.0); Eosinophils # 0.2 K/mm3 (0.0-0.4); Eosinophils % 2.6 % (0.1-12.0); Hematocrit 31.4 % (37.0-47.0); Hemoglobin 9.6 g/dL (12.2-16.2); Lymphocytes # 0.5 K/mm3 (0.7-4.5); Lymphocytes % 5.8 % (10-50); Mean Corpuscular HGB Conc 30.6 g/dL (31.8-35.4); Mean Corpuscular Hemoglobin 27.3 pg (27.0-31.2); Mean Corpuscular Volume 89.2 fl (81-99); Mean Platelet Volume 7.6 fl (7.4-10.4); Monocytes # 0.4 K/mm3 (0.1-1.0); Monocytes % 5.2 % (1.7-9.3); Neutrophils # 6.9 K/mm3 (1.8-7.8); Neutrophils % 85.7 % (37.0-80.0); Platelet Count 234 K/mm3 (142-424); Red Blood Count 3.52 M/mm3 (4.20-5.40); White Blood Count 8.1 K/mm3 (4.8-10.8)
[2021-12-30 10:45] LABS: Red Cell Distribution Width 27.2 % (11.5-17.5)
[2021-12-30 10:46] LABS: MANUAL DIFFERENTIAL MANUAL DIFFERENTIAL (MANUAL DIFF)
[2021-12-30 10:47] LABS: Chloride 86 mmol/L (98-107); Sodium 130 mmol/L (136-145)
[2021-12-30 10:48] LABS: Potassium 3.2 mmoL/L (3.5-5.1)
[2021-12-30 10:50] LABS: Alanine Aminotransferase 16 U/L (12-78); Alkaline Phosphatase 119 U/L (38-126); Anion Gap 13.2 mEq/L (5-15); Aspartate Amino Transferase 31 U/L (14-36); Bilirubin,Total 0.8 mg/dl (0.2-1.3); Blood Urea Nitrogen 52 mg/dl (7-17); Carbon Dioxide 34 mmol/L (22.0-30.0); Creatinine Clearance Estimated 65 mL/min (50-200); Estimated Glomerular Filt Rate 42 ml/min (>60); GFR (African American) 51 ML/MIN (>60)
[2021-12-30 10:51] LABS: Albumin Level 4.7 g/dl (3.5-5.0); Albumin/Globulin Ratio 1.6 (1.1-1.8); Calcium 9.1 mg/dl (8.4-10.2); Globulin 2.9 g/dL (1.3-3.2); Glucose 240 mg/dl (74-100); Total Protein,Serum 7.6 g/dl (6.3-8.2)
[2021-12-30 11:13] LABS: Prothrombin Time 57.8 seconds (10.1-12.5)
[2021-12-30 11:14] LABS: INR 5.83 (0.9-1.1)
--- NOTE | 2021-12-30 11:17 | PC.NURSE ---
Bryson CHARLTON RN CALLED RN AT 1115 TO REPORT PT LEVEL 51.8 AND INR 5.83. RN REPEATED AND VERIFIED PT NAME, , AND LAB VALUE. RESULTS CALLED TO TARYN RODRÍGUEZ D; HE WILL CALL PATIENT WITH FURTHER INSTRUCTIONS.
[2021-12-30 11:21] LABS: Thyroid Stimulating Hormone 2.29 uIU/mL (0.465-4.68)
[2021-12-30 11:32] LABS: Hemoglobin A1C 6.5 % (4.0-6.0)
[2021-12-30 12:13] LABS: Eosinophils % 1 % (0-3); Lymphocytes % 12 % (10-50); Monocytes % 2 % (2-9); Neutrophils % 85 % (42-76); Total Cells Counted 100
[2021-12-30 12:14] LABS: Hypochromasia 2+; Platelet Estimate Normal
[2021-12-30 12:22] LABS: Uric Acid 17.8 mg/dl (2.5-6.2)
== END 2021-12-30 10:45 | disposition home or self-care (01) ==
LOC: INF 09:50
PROVIDERS: PCP Internal Medicine Adolescent Medicine; Visit Provider Internal Medicine Medical Oncology
DX: I48.91 Unspecified atrial fibrillation (principal); E11.9 Type 2 diabetes mellitus without complications; E03.9 Hypothyroidism, unspecified; Z79.01 Long term (current) use of anticoagulants; Z51.81 Encounter for therapeutic drug level monitoring; Z79.4 Long term (current) use of insulin; Z45.2 Encounter for adjustment and management of vascular access device
CPT/HCPCS: 80053; 83036; 84443; 84550; 85007; 85025; 85610; J1642

== ENCOUNTER 2022-01-06 08:20 | Outpatient (CLI) | payer MEDICARE, MEDICAID, SELFPAY ==
[2022-01-06 09:28] VITALS: BMI 33.1
[2022-01-06 09:49] LABS: Basophils % 0.6 % (0.1-2.0); Eosinophils # 0.2 K/mm3 (0.0-0.4); Eosinophils % 3.3 % (0.1-12.0); Hematocrit 31.5 % (37.0-47.0); Hemoglobin 9.5 g/dL (12.2-16.2); Lymphocytes # 0.4 K/mm3 (0.7-4.5); Lymphocytes % 7.1 % (10-50); Mean Corpuscular HGB Conc 30.3 g/dL (31.8-35.4); Mean Corpuscular Volume 92.5 fl (81-99); Monocytes # 0.3 K/mm3 (0.1-1.0); Monocytes % 6.2 % (1.7-9.3); Neutrophils # 4.4 K/mm3 (1.8-7.8); Neutrophils % 82.8 % (37.0-80.0); Platelet Count 222 K/mm3 (142-424); Red Cell Distribution Width 22.5 % (11.5-17.5); White Blood Count 5.3 K/mm3 (4.8-10.8)
[2022-01-06 09:59] LABS: INR 1.42 (0.9-1.1); Prothrombin Time 15.6 seconds (10.1-12.5)
== END 2022-01-06 10:15 | disposition home or self-care (01) ==
LOC: INF 08:20
PROVIDERS: Internal Medicine Adolescent Medicine; Visit Provider Internal Medicine Medical Oncology
DX: D64.9 Anemia, unspecified (principal); Z51.81 Encounter for therapeutic drug level monitoring; Z79.01 Long term (current) use of anticoagulants; Z45.2 Encounter for adjustment and management of vascular access device
CPT/HCPCS: 85025; 85610; J1642

== ENCOUNTER 2022-01-13 07:59 | Outpatient (CLI) | payer MEDICARE, MEDICAID, SELFPAY ==
[2022-01-13 09:32] VITALS: BMI 34.0
[2022-01-13 10:06] LABS: Chloride 95 mmol/L (98-107); Potassium 4.1 mmoL/L (3.5-5.1); Sodium 134 mmol/L (136-145)
[2022-01-13 10:09] LABS: Anion Gap 12.1 mEq/L (5-15); Blood Urea Nitrogen 23 mg/dl (7-17); Calcium 8.5 mg/dl (8.4-10.2); Carbon Dioxide 31 mmol/L (22.0-30.0); Creatinine Clearance Estimated 87 mL/min (50-200); Estimated Glomerular Filt Rate 57 ml/min (>60); GFR (African American) 69 ML/MIN (>60); Glucose 183 mg/dl (74-100)
[2022-01-13 10:15] LABS: Basophils % 0.6 % (0.1-2.0); Eosinophils # 0.2 K/mm3 (0.0-0.4); Eosinophils % 3.4 % (0.1-12.0); Hematocrit 31.2 % (37.0-47.0); Hemoglobin 9.6 g/dL (12.2-16.2); Lymphocytes # 0.4 K/mm3 (0.7-4.5); Lymphocytes % 6.3 % (10-50); Mean Corpuscular HGB Conc 30.7 g/dL (31.8-35.4); Mean Corpuscular Hemoglobin 27.4 pg (27.0-31.2); Mean Corpuscular Volume 89.3 fl (81-99); Mean Platelet Volume 8.7 fl (7.4-10.4); Monocytes # 0.3 K/mm3 (0.1-1.0); Monocytes % 5.5 % (1.7-9.3); Neutrophils % 84.2 % (37.0-80.0); Platelet Count 209 K/mm3 (142-424); Red Blood Count 3.49 M/mm3 (4.20-5.40); Red Cell Distribution Width 22.8 % (11.5-17.5)
[2022-01-13 10:20] LABS: INR 1.51 (0.9-1.1); Prothrombin Time 16.6 seconds (10.1-12.5)
[2022-01-13 10:22] LABS: Uric Acid 8.5 mg/dl (2.5-6.2)
== END 2022-01-13 10:47 | disposition home or self-care (01) ==
LOC: INF 08:00
PROVIDERS: Internal Medicine Adolescent Medicine; Visit Provider Internal Medicine Medical Oncology
DX: D64.9 Anemia, unspecified (principal); Z79.01 Long term (current) use of anticoagulants; D50.9 Iron deficiency anemia, unspecified
CPT/HCPCS: 80048; 84550; 85025; 85610; J1642

== ENCOUNTER 2022-01-20 08:16 | Outpatient (CLI) | payer MEDICARE, MEDICAID, SELFPAY ==
[2022-01-20 09:55] VITALS: BMI 34.0
[2022-01-20 10:28] LABS: Basophils % 0.7 % (0.1-2.0); Eosinophils # 0.3 K/mm3 (0.0-0.4); Eosinophils % 4.8 % (0.1-12.0); Hematocrit 32.8 % (37.0-47.0); Lymphocytes # 0.4 K/mm3 (0.7-4.5); Lymphocytes % 6.8 % (10-50); Mean Corpuscular HGB Conc 30.6 g/dL (31.8-35.4); Mean Corpuscular Volume 88.5 fl (81-99); Mean Platelet Volume 8.7 fl (7.4-10.4); Monocytes # 0.4 K/mm3 (0.1-1.0); Neutrophils # 4.7 K/mm3 (1.8-7.8); Neutrophils % 81.7 % (37.0-80.0); Platelet Count 222 K/mm3 (142-424); White Blood Count 5.8 K/mm3 (4.8-10.8)
[2022-01-20 10:30] LABS: Uric Acid 10.4 mg/dl (2.5-6.2)
[2022-01-20 10:31] LABS: Anion Gap 13.5 mEq/L (5-15); Blood Urea Nitrogen 41 mg/dl (7-17); Calcium 9.3 mg/dl (8.4-10.2); Carbon Dioxide 36 mmol/L (22.0-30.0); Chloride 90 mmol/L (98-107); Creatinine Clearance Estimated 72 mL/min (50-200); Estimated Glomerular Filt Rate 46 ml/min (>60); GFR (African American) 56 ML/MIN (>60); Glucose 238 mg/dl (74-100); Potassium 3.5 mmoL/L (3.5-5.1); Sodium 136 mmol/L (136-145)
[2022-01-20 10:33] LABS: INR 1.85 (0.9-1.1)
--- NOTE | 2022-01-20 10:46 | PC.NURSE ---
1046-pt d/c home; hgb today 10.0.
--- NOTE | 2022-01-20 12:47 | HMH.PHAINT ---
PATIENT'S INR TODAY WAS 1.85. RECOMMENDED PATIENT INCREASE WEEKLY DOSE TO 5MG DAILY OVER TELEPHONE. CALLED IN NEW REFILL FOR WARFARIN TO [facility] IN [place]. -TARYN RODRÍGUEZD
== END 2022-01-20 10:46 | disposition home or self-care (01) ==
LOC: INF 08:17
PROVIDERS: Internal Medicine Adolescent Medicine; Visit Provider Internal Medicine Medical Oncology
DX: D64.9 Anemia, unspecified (principal); Z79.01 Long term (current) use of anticoagulants; Z45.2 Encounter for adjustment and management of vascular access device
CPT/HCPCS: 80048; 84550; 85025; 85610; J1642

== ENCOUNTER 2022-01-27 10:09 | Outpatient (CLI) | payer MEDICARE, MEDICAID, SELFPAY ==
[2022-01-27 10:15] VITALS: BMI 34.2
[2022-01-27 10:46] LABS: Basophils # 0.1 K/mm3 (0-0.2); Basophils % 1.2 % (0.1-2.0); Eosinophils # 0.3 K/mm3 (0.0-0.4); Hematocrit 32.5 % (37.0-47.0); Hemoglobin 9.7 g/dL (12.2-16.2); Lymphocytes # 0.4 K/mm3 (0.7-4.5); Lymphocytes % 7.1 % (10-50); Mean Corpuscular HGB Conc 29.8 g/dL (31.8-35.4); Mean Corpuscular Hemoglobin 26.9 pg (27.0-31.2); Mean Platelet Volume 8.9 fl (7.4-10.4); Monocytes # 0.4 K/mm3 (0.1-1.0); Neutrophils # 4.7 K/mm3 (1.8-7.8); Neutrophils % 80.7 % (37.0-80.0); Platelet Count 243 K/mm3 (142-424); Red Blood Count 3.61 M/mm3 (4.20-5.40); Red Cell Distribution Width 21.9 % (11.5-17.5); White Blood Count 5.8 K/mm3 (4.8-10.8)
[2022-01-27 11:04] LABS: INR 3.13 (0.9-1.1); Prothrombin Time 32.5 seconds (10.1-12.5)
== END 2022-01-27 11:19 | disposition home or self-care (01) ==
LOC: INF 10:10
PROVIDERS: PCP Internal Medicine Adolescent Medicine; Visit Provider Internal Medicine Medical Oncology
DX: Z45.2 Encounter for adjustment and management of vascular access device (principal); D64.9 Anemia, unspecified; Z79.01 Long term (current) use of anticoagulants; Z51.81 Encounter for therapeutic drug level monitoring
CPT/HCPCS: 85025; 85610; J1642

== ENCOUNTER 2022-02-03 09:56 | Outpatient (CLI) | payer MEDICARE, MEDICAID, SELFPAY ==
[2022-02-03 10:06] VITALS: BMI 34.4
[2022-02-03 10:49] LABS: Basophils % 0.7 % (0.1-2.0); Eosinophils # 0.3 K/mm3 (0.0-0.4); Eosinophils % 4.5 % (0.1-12.0); Hematocrit 31.2 % (37.0-47.0); Hemoglobin 9.7 g/dL (12.2-16.2); Lymphocytes # 0.4 K/mm3 (0.7-4.5); Lymphocytes % 7.1 % (10-50); Mean Corpuscular HGB Conc 31.1 g/dL (31.8-35.4); Mean Corpuscular Hemoglobin 26.4 pg (27.0-31.2); Mean Corpuscular Volume 84.9 fl (81-99); Monocytes # 0.3 K/mm3 (0.1-1.0); Monocytes % 6.1 % (1.7-9.3); Neutrophils # 4.5 K/mm3 (1.8-7.8); Neutrophils % 81.6 % (37.0-80.0); Platelet Count 243 K/mm3 (142-424); Red Blood Count 3.67 M/mm3 (4.20-5.40); Red Cell Distribution Width 20.8 % (11.5-17.5); White Blood Count 5.6 K/mm3 (4.8-10.8)
== END 2022-02-03 11:05 | disposition home or self-care (01) ==
LOC: INF 09:57
PROVIDERS: PCP Internal Medicine Adolescent Medicine; Visit Provider Internal Medicine Medical Oncology
DX: Z45.2 Encounter for adjustment and management of vascular access device (principal); D64.9 Anemia, unspecified
CPT/HCPCS: 85025; J1642

== ENCOUNTER 2022-02-05 11:36 | Outpatient (CLI) | payer MEDICARE, MEDICAID, SELFPAY ==
[2022-02-05 11:46] VITALS: BMI 34.4
[2022-02-05 12:15] VITALS: BP 112/74; PULSE 68; RESP 20; TEMP 36.9; O2SAT 95
[2022-02-05 12:18] LABS: Microscopic, Urine URINE MICROSCOPIC (MICROSCOPIC)
[2022-02-05 12:23] LABS: Appearance,Urine CLEAR (Clear); Bilirubin,Urine Negative (Negative); Blood, Urine Negative (Negative); Color,Urine YELLOW (Yellow); Glucose,Urine (UA) Negative (Negative); Ketones,Urine Negative (Negative); Leukocyte Esterase,Urine Negative (Negative); Nitrate,Urine Negative (Negative); Protein,Urine Negative (Negative); Urobilinogen,Urine 0.2 EU/dl (0.2)
[2022-02-05 12:27] LABS: Alanine Aminotransferase 22 U/L (12-78); Albumin Level 4.6 g/dl (3.5-5.0); Albumin/Globulin Ratio 1.6 (1.1-1.8); Alkaline Phosphatase 111 U/L (38-126); Anion Gap 12.9 mEq/L (5-15); Aspartate Amino Transferase 30 U/L (14-36); Bilirubin,Total 0.7 mg/dl (0.2-1.3); Blood Urea Nitrogen 45 mg/dl (7-17); Calcium 9.3 mg/dl (8.4-10.2); Carbon Dioxide 34 mmol/L (22.0-30.0); Chloride 92 mmol/L (98-107); Creatinine Clearance Estimated 68 mL/min (50-200); Estimated Glomerular Filt Rate 42 ml/min (>60); GFR (African American) 51 ML/MIN (>60); Globulin 2.8 g/dL (1.3-3.2); Glucose 255 mg/dl (74-100); Potassium 3.9 mmoL/L (3.5-5.1); Sodium 135 mmol/L (136-145); Total Protein,Serum 7.4 g/dl (6.3-8.2); Uric Acid 8.8 mg/dl (2.5-6.2)
[2022-02-05 12:39] LABS: Intact Parathyroid Hormone 345.9 pg/mL (7.5-53.5)
[2022-02-05 12:41] LABS: WBC,Urine Occasional #/hpf (0-3)
== END 2022-02-05 12:35 | disposition home or self-care (01) ==
LOC: INF 11:39
PROVIDERS: Internal Medicine Nephrology; PCP Internal Medicine Adolescent Medicine; Visit Provider Internal Medicine Medical Oncology
DX: E11.22 Type 2 diabetes mellitus with diabetic chronic kidney disease (principal); E55.9 Vitamin D deficiency, unspecified; N18.30 Chronic kidney disease, stage 3 unspecified; N17.9 Acute kidney failure, unspecified; E87.1 Hypo-osmolality and hyponatremia; E87.6 Hypokalemia; Z79.4 Long term (current) use of insulin
CPT/HCPCS: 80053; 81001; 82306; 83036; 83970; 84550; J1642

== ENCOUNTER 2022-02-13 13:33 | Outpatient (CLI) | payer MEDICARE, MEDICAID, SELFPAY ==
[2022-02-13 13:40] VITALS: BMI 34.4
[2022-02-13 13:59] LABS: Basophils # 0.1 K/mm3 (0-0.2); Basophils % 1.1 % (0.1-2.0); Eosinophils # 0.2 K/mm3 (0.0-0.4); Eosinophils % 4.1 % (0.1-12.0); Hemoglobin 8.5 g/dL (12.2-16.2); Lymphocytes # 0.6 K/mm3 (0.7-4.5); Lymphocytes % 10.7 % (10-50); Mean Corpuscular HGB Conc 30.2 g/dL (31.8-35.4); Mean Corpuscular Hemoglobin 25.2 pg (27.0-31.2); Mean Corpuscular Volume 83.4 fl (81-99); Mean Platelet Volume 8.9 fl (7.4-10.4); Monocytes # 0.4 K/mm3 (0.1-1.0); Monocytes % 6.8 % (1.7-9.3); Neutrophils # 4.1 K/mm3 (1.8-7.8); Neutrophils % 77.3 % (37.0-80.0); Platelet Count 273 K/mm3 (142-424); Red Blood Count 3.36 M/mm3 (4.20-5.40); Red Cell Distribution Width 20.6 % (11.5-17.5); White Blood Count 5.3 K/mm3 (4.8-10.8)
[2022-02-13 14:07] LABS: INR 3.61 (0.9-1.1); Prothrombin Time 37.1 seconds (10.1-12.5)
== END 2022-02-13 13:58 | disposition home or self-care (01) ==
LOC: INF 13:34
PROVIDERS: PCP Internal Medicine Adolescent Medicine; Visit Provider Internal Medicine Medical Oncology
DX: D64.9 Anemia, unspecified (principal); Z51.81 Encounter for therapeutic drug level monitoring; Z79.01 Long term (current) use of anticoagulants; Z45.2 Encounter for adjustment and management of vascular access device
CPT/HCPCS: 85025; 85610; J1642

== ENCOUNTER → 2022-02-13 13:53 | Outpatient (POV) | payer MEDICARE, MEDICAID, SELFPAY | PROVIDERS: Visit Provider Internal Medicine Nephrology | DX: Z00.00 Encounter for general adult medical examination without abnormal findings (principal) ==

== ENCOUNTER 2022-02-17 09:37 | Outpatient (CLI) | payer MEDICARE, MEDICAID, SELFPAY ==
[2022-02-17] VITALS (11 sets, daily range): BP systolic 99–117; BP diastolic 57–74; PULSE 60–99; RESP 17–18; TEMP 36.3–36.6; O2SAT 94–97; BMI 34.4
[2022-02-17 10:04] LABS: Basophils # 0.1 K/mm3 (0-0.2); Basophils % 1.2 % (0.1-2.0); Eosinophils # 0.2 K/mm3 (0.0-0.4); Eosinophils % 3.1 % (0.1-12.0); Hematocrit 25.8 % (37.0-47.0); Hemoglobin 7.9 g/dL (12.2-16.2); Lymphocytes # 0.4 K/mm3 (0.7-4.5); Lymphocytes % 5.8 % (10-50); Mean Corpuscular HGB Conc 30.5 g/dL (31.8-35.4); Mean Corpuscular Hemoglobin 25.2 pg (27.0-31.2); Mean Corpuscular Volume 82.6 fl (81-99); Mean Platelet Volume 10.2 fl (7.4-10.4); Monocytes # 0.4 K/mm3 (0.1-1.0); Monocytes % 5.8 % (1.7-9.3); Neutrophils # 5.5 K/mm3 (1.8-7.8); Neutrophils % 84.1 % (37.0-80.0); Platelet Count 247 K/mm3 (142-424); Red Blood Count 3.13 M/mm3 (4.20-5.40); Red Cell Distribution Width 20.9 % (11.5-17.5); White Blood Count 6.6 K/mm3 (4.8-10.8)
[2022-02-17 15:14] LABS: Hematocrit 25.7 % (37.0-47.0); Hemoglobin 8.2 g/dL (12.2-16.2)
== END 2022-02-17 15:10 | disposition home or self-care (01) ==
LOC: INF 09:38
PROVIDERS: PCP Internal Medicine Adolescent Medicine; Visit Provider Internal Medicine Medical Oncology
DX: D64.9 Anemia, unspecified (principal)
CPT/HCPCS: 36430; 85014; 85018; 85025; 86850; J1642; P9016

== ENCOUNTER 2022-02-21 19:48 | Observation (INO) | payer MEDICARE, MEDICAID, SELFPAY ==
[2022-02-21] VITALS (7 sets, daily range): BP systolic 117–173; BP diastolic 59–76; PULSE 73–85; RESP 17; TEMP 36.6; O2SAT 96–99; BMI 40.4; BMI 34.3
--- NOTE | 2022-02-21 20:02 | CT_ITS ---
PROCEDURE INFORMATION: Exam: CT Cervical Spine Without Contrast Exam date and time: 02/21/2022 8:17 PM Age: 56 years old Clinical indication: Injury or trauma; Fall; Blunt trauma TECHNIQUE: Imaging protocol: Computed tomography images of the cervical spine without contrast. Radiation optimization: All CT scans at this facility use at least one of these dose optimization techniques: automated exposure control; mA and/or kV adjustment per patient size (includes targeted exams where dose is matched to clinical indication); or iterative reconstruction. COMPARISON: CT HEAD/BRAIN WO CON 02/21/2022 8:15 PM FINDINGS: Tubes, catheters and devices: Right-sided chest port tubing extends to the SVC. Bones/joints: No acute fracture. Normal alignment. Discs/Spinal canal/Neural foramina: Mild loss of intervertebral disc space with degenerative changes at C6 through T1. Lungs: Lung apices are normal. Soft tissues: Unremarkable. Other findings: Postsurgical changes compatible with CABG procedure. IMPRESSION: No CT evidence of acute osseous abnormality.
--- NOTE | 2022-02-21 20:02 | XR_ITS ---
PROCEDURE INFORMATION: Exam: XR Pelvis Exam date and time: 02/21/2022 8:19 PM Age: 56 years old Clinical indication: Injury or trauma; Fall; Blunt trauma (contusions or hematomas); Bilateral; Pelvic region TECHNIQUE: Imaging protocol: XR pelvis. Views: 1 or 2 view. COMPARISON: CR XR KUB 07/16/2021 1:38 AM FINDINGS: Bones/joints: Osteopenia. No acute displaced fracture. Lumbar degenerative changes. Soft tissues: Unremarkable. IMPRESSION: No acute finding.
--- NOTE | 2022-02-21 20:02 | ECG_ITS ---
APPROVED REPORT Exam: Resting ECG HR:84 bpm ECG Measurements Heart Rate 84 AXES QRSd 110 QRS 90 QT 416 T 82 QTc 457 Conclusion ATRIAL FIBRILLATION INCOMPLETE RIGHT BUNDLE BRANCH BLOCK [90+ ms QRS DURATION, TERMINAL R IN V1/V2, 40+ ms S IN I/aVL/V4/V5/V6] NONSPECIFIC T-WAVE ABNORMALITY ABNORMAL RHYTHM ECG UNCONFIRMED REPORT Electronically signed by : Reji Castro MD 02/22/2022 08:37:32
--- NOTE | 2022-02-21 20:02 | CT_ITS ---
PROCEDURE INFORMATION: Exam: CT Head Without Contrast Exam date and time: 02/21/2022 8:15 PM Age: 56 years old Clinical indication: Injury or trauma; Fall; Blunt trauma (contusions or hematomas); Without loss of consciousness TECHNIQUE: Imaging protocol: Computed tomography of the head without contrast. Radiation optimization: All CT scans at this facility use at least one of these dose optimization techniques: automated exposure control; mA and/or kV adjustment per patient size (includes targeted exams where dose is matched to clinical indication); or iterative reconstruction. COMPARISON: No relevant prior studies available. FINDINGS: Brain: There is moderate diffuse cerebral volume loss present. Multiple subcortical and deep hypoattenuating white matter foci are present, likely related to small vessel senescent changes and can also be seen with prior infectious / inflammatory insult, or prior traumatic events. No hyperattenuating foci are identified to suggest acute intracranial hemorrhage. Cerebral ventricles: No ventriculomegaly. Paranasal sinuses: Visualized sinuses are unremarkable. No fluid levels. Mastoid air cells: Visualized mastoid air cells are well aerated. Bones/joints: Unremarkable. No acute fracture. Soft tissues: Unremarkable. IMPRESSION: 1. Multiple subcortical and deep hypoattenuating white matter foci are present, likely related to small vessel senescent changes and can also be seen with prior infectious / inflammatory insult, or prior traumatic events. 2. No hyperattenuating foci are identified to suggest acute intracranial hemorrhage.
--- NOTE | 2022-02-21 20:02 | XR_ITS ---
PROCEDURE INFORMATION: Exam: XR Left Ribs with PA Chest Exam date and time: 02/21/2022 8:20 PM Age: 56 years old Clinical indication: Injury or trauma; Fall; Rib area, left side; Blunt trauma TECHNIQUE: Imaging protocol: XR Left ribs with PA chest. Views: 3 views COMPARISON: CR XR CHEST PORTABLE 12/15/2021 11:18 AM FINDINGS: Tubes, catheters and devices: Right chest port present with tip near the superior cavoatrial junction. Lungs: Bilateral perihilar fullness with diffuse vascular prominence and peripheral Hieu B lines. Findings are compatible with [id number] pulmonary edema. There is no consolidation. Pleural spaces: No pleural effusion. No pneumothorax. Heart/Mediastinum: Marked cardiomegaly. Cardiac valve prosthesis. Pulmonary arterial monitoring device noted in expected location of the left descending pulmonary artery. Bones/joints: No acute displaced rib fracture. Degenerative changes. Osteopenia. IMPRESSION: 1. No acute displaced rib fracture. 2. [id number]-aw-[id number] pulmonary edema. Marked cardiomegaly.
--- NOTE | 2022-02-21 20:53 | HMH.EDFALL ---
ED Disposition Clinical Impression: [facility] current use of anticoagulants with INR goal of 2.5-3.5 Fall Qualifiers: Encounter type: initial encounter Qualified Code(s): W19.XXXA - Unspecified fall, initial encounter Anemia Qualifiers: Anemia type: unspecified type Qualified Code(s): D64.9 - Anemia, unspecified Contusion of rib on left side Qualifiers: Encounter type: initial encounter Qualified Code(s): S20.212A - Contusion of left front wall of thorax, initial encounter Rib fractures Qualifiers: Encounter type: initial encounter Fracture type: closed Laterality: left Qualified Code(s): S22.42XA - Multiple fractures of ribs, left side, initial encounter for closed fracture Disposition: Admitted as Observation Condition on Discharge: Good - Critical Care Critical Care Time: No Attestation: On 02/21/22, the high probability of a clinically significant, sudden or life threatening deterioration of the following system(s) required my full and direct attention, intervention and personal management. The time I documented below is in addition to time spent performing reported procedures but includes the following listed in this critical care notation. Medical Decision Making - Medical Records Medical records reviewed: Yes: I reviewed the patient's medical records. - Jeancarlos Inquiry Pt receiving controlled substance: No Vital Signs: 02/21/22 19:47 02/21/22 21:00 02/21/22 21:30 Temperature 97.9 F Temperature Source Oral Pulse Rate 80 81 Pulse Rate [Right] 73 Respiratory Rate 17 Blood Pressure 130/62 Blood Pressure [Right Arm] 173/76 H Blood Pressure Mean 92 Blood Pressure Mean [Right Arm] 108 Blood Pressure Source [Right Arm] Automatic Cuff 02 Sat by Pulse Oximetry 97 96 98 Oxygen Delivery Method Nasal Cannula Nasal Cannula Nasal Cannula Oxygen Flow Rate (LPM) 2 2 2 02/21/22 22:00 02/21/22 22:51 02/21/22 23:00 Temperature Temperature Source Pulse Rate 85 78 82 Pulse Rate [Right] Respiratory Rate Blood Pressure 132/76 128/75 120/59 L Blood Pressure [Right Arm] Blood Pressure Mean 94 96 92 Blood Pressure Mean [Right Arm] Blood Pressure Source [Right Arm] 02 Sat by Pulse Oximetry 98 99 98 Oxygen Delivery Method Nasal Cannula Oxygen Flow Rate (LPM) 2 02/21/22 23:30 02/22/22 00:00 02/22/22 00:31 Temperature Temperature Source Pulse Rate 81 77 73 Pulse Rate [Right] Respiratory Rate Blood Pressure 117/73 117/72 109/65 L Blood Pressure [Right Arm] Blood Pressure Mean 85 81 74 Blood Pressure Mean [Right Arm] Blood Pressure Source [Right Arm] 02 Sat by Pulse Oximetry 98 97 96 Oxygen Delivery Method Nasal Cannula Nasal Cannula Nasal Cannula Oxygen Flow Rate (LPM) 2 2 - Lab Data Lab results reviewed: Yes: I reviewed the patient's lab results. Lab Results 02/21/22 21:00: ESR 64 H 02/21/22 21:00: Troponin I < 0.01, C-Reactive Protein 18.3 H, NT-Pro-B Natriuret Pep 578 H, Procalcitonin 0.062 02/21/22 21:00: WBC 6.1, RBC 2.99 L, Hgb 7.5 L, Hct 24.2 L, MCV 81.0, MCH 25.2 L, MCHC 31.1 L, RDW 20.3 H, Plt Count 250, MPV 8.6, Neut % (Auto) 80.2 H, Lymph % (Auto) 8.6 L, [place] % (Auto) 6.3, Eos % (Auto) 4.4, Baso % (Auto) 0.5, Neut # (Auto) 4.9, Lymph # (Auto) 0.5 L, [place] # (Auto) 0.4, Eos # (Auto) 0.3, Baso # (Auto) 0.0 02/21/22 21:00: Sodium 136, Potassium 4.0, Chloride 98, Carbon Dioxide 30, Anion Gap 12.0, BUN 28 H, Creatinine 1.10 H, Estimated Creat Clear 80, Estimated GFR 51 L, Est GFR ( Amer) 62, Glucose 185 H, Calcium 8.7, Total Bilirubin 0.7, AST 23, ALT 17, Alkaline Phosphatase 82, Total Protein 6.5, Albumin 4.0, Globulin 2.5, Albumin/Globulin Ratio 1.6 02/21/22 21:00: PT 30.4 H, INR 2.91 H 02/21/22 22:36: Urine Color Yellow, Urine Appearance Clear, Urine pH 5.5, Ur Specific [place] 1.010, Urine Protein Negative, Urine Glucose (UA) Negative, Urine Ketones Negative, Urine Blood Negative, Urine Nitrate Negative, Urine Bilirubin Negati
[2022-02-21 21:10] LABS: Eosinophils # 0.3 K/mm3 (0.0-0.4); Lymphocytes # 0.5 K/mm3 (0.7-4.5); Red Cell Distribution Width 20.3 % (11.5-17.5)
[2022-02-21 21:12] LABS: Basophils % 0.5 % (0.1-2.0); Eosinophils % 4.4 % (0.1-12.0); Hematocrit 24.2 % (37.0-47.0); Hemoglobin 7.5 g/dL (12.2-16.2); Lymphocytes % 8.6 % (10-50); Mean Corpuscular HGB Conc 31.1 g/dL (31.8-35.4); Mean Corpuscular Hemoglobin 25.2 pg (27.0-31.2); Mean Platelet Volume 8.6 fl (7.4-10.4); Monocytes # 0.4 K/mm3 (0.1-1.0); Monocytes % 6.3 % (1.7-9.3); Neutrophils # 4.9 K/mm3 (1.8-7.8); Neutrophils % 80.2 % (37.0-80.0); Platelet Count 250 K/mm3 (142-424); Red Blood Count 2.99 M/mm3 (4.20-5.40); White Blood Count 6.1 K/mm3 (4.8-10.8)
[2022-02-21 21:16] LABS: Alanine Aminotransferase 17 U/L (12-78); Albumin/Globulin Ratio 1.6 (1.1-1.8); Alkaline Phosphatase 82 U/L (38-126); Aspartate Amino Transferase 23 U/L (14-36); Bilirubin,Total 0.7 mg/dl (0.2-1.3); Blood Urea Nitrogen 28 mg/dl (7-17); Calcium 8.7 mg/dl (8.4-10.2); Carbon Dioxide 30 mmol/L (22.0-30.0); Chloride 98 mmol/L (98-107); Creatinine Clearance Estimated 80 mL/min (50-200); Estimated Glomerular Filt Rate 51 ml/min (>60); GFR (African American) 62 ML/MIN (>60); Globulin 2.5 g/dL (1.3-3.2); Glucose 185 mg/dl (74-100); Sodium 136 mmol/L (136-145); Total Protein,Serum 6.5 g/dl (6.3-8.2)
[2022-02-21 21:17] LABS: INR 2.91 (0.9-1.1); Prothrombin Time 30.4 seconds (10.1-12.5)
[2022-02-21 21:21] LABS: C-Reactive Protein 18.3 mg/L (0-4)
[2022-02-21 21:30] LABS: NT Pro Brain Natriuretic Pep. 578 pg/mL (0-125)
[2022-02-21 21:31] LABS: Troponin I < 0.01 ng/ml (0.00-0.034)
[2022-02-21 21:34] LABS: Procalcitonin 0.062 ng/mL (0.0-2.0)
[2022-02-21 21:37] LABS: Erythrocyte Sedimentation Rate 64 mm/hr (0-30)
--- NOTE | 2022-02-21 22:27 | CT_ITS ---
PROCEDURE INFORMATION: Exam: CT Chest Without Contrast; Diagnostic Exam date and time: 02/21/2022 10:35 PM Age: 56 years old Clinical indication: Injury or trauma; Fall; Blunt trauma (contusions or hematomas); Prior surgery; Surgery date: 6+ months; Surgery type: Open heart, cardiac mems valve, ; patient HX: Fell hit a doorfacing with left ribs/left upper abdomen area of body; Additional info: Fall, luq pain TECHNIQUE: Imaging protocol: Diagnostic computed tomography of the chest without contrast. Radiation optimization: All CT scans at this facility use at least one of these dose optimization techniques: automated exposure control; mA and/or kV adjustment per patient size (includes targeted exams where dose is matched to clinical indication); or iterative reconstruction. COMPARISON: CR XR RIBS LT MIN 3V W CXR1V 02/21/2022 8:20 PM FINDINGS: Tubes, catheters and devices: Right-sided port catheter noted with the tip in the upper right atrium. Lungs: Interlobular septal thickening noted bilaterally which may be related to edema. Mild dependent atelectasis in the lower lobes bilaterally. No focal appearing consolidation. Pleural spaces: Trace pleural fluid on the right. Heart: Cardiomegaly. Mild coronary artery calcification. Aorta: No aortic aneurysm. Lymph nodes: Multiple mildly prominent mediastinal lymph nodes in the right paratracheal and AP window regions measuring up to 1 cm. Bones/joints: Status post sternotomy with mitral valve repair. Mild buckling deformity of the anterior aspect of the left 3rd through 7th ribs. Chronic appearing deformity of the anterior right 3rd , 9th and 10th ribs. Soft tissues: No acute findings. IMPRESSION: 1. No displaced rib fractures identified. Mild buckling deformities of the anterior aspect of the left 3rd through 7th ribs reflect age-indeterminate nondisplaced fractures, suspected chronic. Chronic appearing deformities in the right ribs as well as described. 2. Interlobular septal thickening suggestive of pulmonary edema. Trace right pleural effusion. 3. Cardiomegaly. 4. Mild nonspecific mediastinal adenopathy.
--- NOTE | 2022-02-21 22:27 | CT_ITS ---
PROCEDURE INFORMATION: Exam: CT Abdomen And Pelvis Without Contrast Exam date and time: 02/21/2022 10:38 PM Age: 56 years old Clinical indication: Injury or trauma; Fall; Blunt; Injury date: 02/21/2022; Prior surgery; Surgery date: 6+ months; Surgery type: Open heart, cardiac mems valve, tubal ligation, hernia repair, 12 in of bowel removed. Left kidney surgery; Patient HX: Fell and hit left chest and luq abdomen against door facing; Additional info: Fall, luq pain TECHNIQUE: Imaging protocol: Computed tomography of the abdomen and pelvis without contrast. Radiation optimization: All CT scans at this facility use at least one of these dose optimization techniques: automated exposure control; mA and/or kV adjustment per patient size (includes targeted exams where dose is matched to clinical indication); or iterative reconstruction. COMPARISON: CR XR PELVIS 1-2V 02/21/2022 8:19 PM FINDINGS: Liver: Hepatomegaly without focal abnormality identified. Gallbladder and bile ducts: Nondistended gallbladder. Pancreas: No acute findings, focal abnormality or ductal dilation. Spleen: Chronic appearing calcifications in the spleen. Adrenal glands: Indeterminate density oval 1.9 x 1.4 cm right adrenal nodule. Kidneys and ureters: Mildly prominent extrarenal pelvis on the left without evidence of acute obstructive uropathy. Simple appearing exophytic right renal cyst is 4.9 cm for which no further follow-up should be necessary. Stomach and bowel: Status post partial colectomy with anastomosis in the sigmoid region. No bowel obstruction. Diverticulosis is noted in the colon without evidence of acute diverticulitis. Appendix: No evidence of appendicitis. Intraperitoneal space: No free air. No significant fluid collection. Vasculature: No abdominal aortic aneurysm. Lymph nodes: No pathologically enlarged lymph nodes. Urinary bladder: Unremarkable as visualized. Reproductive: Status post tubal ligation. There are 2 left fluid attenuation oval adnexal cysts in the left ovary, largest measuring 2.4 cm, with a thin wall between the 2 cysts with a punctate calcification. Bones/joints: No acute fracture. Soft tissues: Postsurgical changes related to ventral abdominal hernia repair. IMPRESSION: 1. No acute findings in the abdomen or pelvis. 2. Indeterminate density right adrenal nodule for which nonemergent follow-up adrenal MR is recommended. 3. Two fluid attenuation left ovarian cysts are fairly simple appearing except for a small calcification in the wall between the cysts suspected to be benign. Follow-up nonemergent ultrasound if clinically indicated. 4. Hepatomegaly. 5. Postsurgical changes as described.
[2022-02-21 23:16] LABS: Microscopic, Urine URINE MICROSCOPIC (MICROSCOPIC)
[2022-02-21 23:19] LABS: Appearance,Urine CLEAR (Clear); Bilirubin,Urine Negative (Negative); Blood, Urine Negative (Negative); Color,Urine YELLOW (Yellow); Glucose,Urine (UA) Negative (Negative); Ketones,Urine Negative (Negative); Leukocyte Esterase,Urine Negative (Negative); Nitrate,Urine Negative (Negative); PH,Urine 5.5 (5.0-8.5); Protein,Urine Negative (Negative); Urobilinogen,Urine 0.2 EU/dl (0.2)
[2022-02-21 23:22] LABS: WBC,Urine Occasional #/hpf (0-3)
[2022-02-22] VITALS: BP 117/72; PULSE 77; O2SAT 97
[2022-02-22 00:08] LABS: Troponin I < 0.01 ng/ml (0.00-0.034)
[2022-02-22 00:13] LABS: Coronavirus 19, PCR Not Detected (NotDetected); Influenza A, PCR Not Detected (NotDetected); Influenza B, PCR Not Detected (NotDetected)
[2022-02-22 00:31] VITALS: BP 109/65; PULSE 73; O2SAT 96
[2022-02-22 01:12] VITALS: BP 117/69; PULSE 83; RESP 20; TEMP 36.7; O2SAT 96
[2022-02-22 01:25] VITALS: BP 110/70; PULSE 85; RESP 16; TEMP 36.8; O2SAT 96; BMI 34.9
--- NOTE | 2022-02-22 01:25 | PC.NURSE ---
pt arrived to floor via wheelchair at this time.
[2022-02-22 04:00] VITALS: BP 126/78; PULSE 64; RESP 17; TEMP 36.6; O2SAT 94
[2022-02-22 06:38] LABS: Basophils % 0.4 % (0.1-2.0); Eosinophils # 0.3 K/mm3 (0.0-0.4); Eosinophils % 3.9 % (0.1-12.0); Hematocrit 24.9 % (37.0-47.0); Hemoglobin 7.6 g/dL (12.2-16.2); Lymphocytes # 0.5 K/mm3 (0.7-4.5); Lymphocytes % 8.3 % (10-50); Mean Corpuscular HGB Conc 30.4 g/dL (31.8-35.4); Mean Corpuscular Volume 82.4 fl (81-99); Mean Platelet Volume 8.6 fl (7.4-10.4); Monocytes # 0.4 K/mm3 (0.1-1.0); Monocytes % 5.8 % (1.7-9.3); Neutrophils # 5.4 K/mm3 (1.8-7.8); Neutrophils % 81.6 % (37.0-80.0); Platelet Count 235 K/mm3 (142-424); Red Blood Count 3.03 M/mm3 (4.20-5.40); Red Cell Distribution Width 20.3 % (11.5-17.5); White Blood Count 6.6 K/mm3 (4.8-10.8)
[2022-02-22 06:51] LABS: Chloride 102 mmol/L (98-107); Potassium 4.4 mmoL/L (3.5-5.1); Sodium 138 mmol/L (136-145)
[2022-02-22 06:54] LABS: Anion Gap 8.4 mEq/L (5-15); Blood Urea Nitrogen 24 mg/dl (7-17); Carbon Dioxide 32 mmol/L (22.0-30.0); Creatinine Clearance Estimated 90 mL/min (50-200); Estimated Glomerular Filt Rate 57 ml/min (>60); GFR (African American) 69 ML/MIN (>60); Glucose 139 mg/dl (74-100)
[2022-02-22 08:00] VITALS: BP 139/74; PULSE 82; RESP 14; TEMP 36.7; O2SAT 94
--- NOTE | 2022-02-22 08:51 | HMH.HPDC ---
General - General Admission date:: 02/22/22 Discharge date: 02/22/22 *Admission Date: 02/21/22 *Chief complaint: Fall with left-sided chest wall pain *History of present illness: 56-year-old white female with significant and multiple medical problems including severe anemia, chronic blood clots on chronic anticoagulation therapy, also on chronic narcotic therapy with Percocet 10 mg 3 times daily that is prescribed by the pain clinic in [place], who fell over yesterday while tying her shoes and fell onto her left chest. Had intense pain associate with shortness of air and came to the emergency department. Extensive work-up in the emergency department revealed no evidence of acute pathology except for the CT of the chest which showed old cortical irregularities over the left part of the ribs consistent with old/healing fractures. On review of patient's history she notes that several weeks ago she fell onto concrete on her left side and has had a lot of pain since that time but it was extremely accelerated by the fall yesterday. Interestingly, plain chest x-ray films did not show the rib irregularities. Patient was unable to have pain relief in the ER with IV morphine and was admitted overnight for rest, further observation and pain treatment. [facility] History I have reviewed the patient's past medical history: Yes Medical History: Reports:: Arrhythmia, Atrial Fibrillation, Cardiomyopathy, Congestive Heart Failure, Chronic Obstructive Pulmonary Disease (COPD), Congenital Heart Disease, Coronary Artery Disease, Deep Vein Thrombosis, Diabetes Mellitus Type 2, Gastroesophageal Reflux Disease(GERD), Hyperlipidemia, Hypertension, Valvular Heart Disease Denies:: Cancer, Diabetes Mellitus Type 1, MRSA, Seizures *Have you ever received a pneumonia vaccine?: Yes *Have you received a flu vaccine this season?: Yes Other Medical History: Reports: Anemia, Arthritis, Blood Transfusion Reaction, Hypothyroidism, Liver Disease, Sinus Problems, Thyroid Disease Other Surgeries: Yes: Cardiac Catheterization, Colon Resection, Hernia Repair, Tubal Ligation, Other Amputation: No Fractures: No - *Social History Smoking Status: Former smoker Tobacco Type: cigarettes # Packs/Day (cigarettes): 1 Alcohol Intake: never Substance Use Type: denies use *Occupational Status:: employed Housing: house Household Members: none *Travel in the last 8 weeks: None Family Hx:: Anemia, Heart Attack, Hyperlipidemia, Hypertension, Kidney Disease, Mental illness Review of Systems - Review of Systems Review of systems:: pertinent systems reviewed and negative unless documented below - *Neurologic Reports headache(s), Denies confusion, Denies dizziness, Denies localized weakness, Denies seizure-like activity Exam Vital signs and Labs for Last 24 Hours: Temp Pulse Resp BP Pulse Ox 98 F 64 17 126/78 94 L 02/22/22 04:00 02/22/22 04:00 02/22/22 04:00 02/22/22 04:00 02/22/22 04:00 Laboratory Results - last 24 hr 02/21/22 21:00: ESR 64 H 02/21/22 21:00: Troponin I < 0.01, C-Reactive Protein 18.3 H, NT-Pro-B Natriuret Pep 578 H, Procalcitonin 0.062 02/21/22 21:00: WBC 6.1, RBC 2.99 L, Hgb 7.5 L, Hct 24.2 L, MCV 81.0, MCH 25.2 L, MCHC 31.1 L, RDW 20.3 H, Plt Count 250, MPV 8.6, Neut % (Auto) 80.2 H, Lymph % (Auto) 8.6 L, [place] % (Auto) 6.3, Eos % (Auto) 4.4, Baso % (Auto) 0.5, Neut # (Auto) 4.9, Lymph # (Auto) 0.5 L, [place] # (Auto) 0.4, Eos # (Auto) 0.3, Baso # (Auto) 0.0 02/21/22 21:00: Sodium 136, Potassium 4.0, Chloride 98, Carbon Dioxide 30, Anion Gap 12.0, BUN 28 H, Creatinine 1.10 H, Estimated Creat Clear 80, Estimated GFR 51 L, Est GFR ( Amer) 62, Glucose 185 H, Calcium 8.7, Total Bilirubin 0.7, AST 23, ALT 17, Alkaline Phosphatase 82, Total Protein 6.5, Albumin 4.0, Globulin 2.5, Albumin/Globulin Ratio 1.6 02/21/22 21:00: PT 30.4 H, INR 2.91 H 02/21/22 22:36: Urine Color Yellow, Urine Appearance Clear, Urine pH 5.5, Ur Specific [place] 1.010, Urine Protein Nega
--- NOTE | 2022-02-22 08:57 | PC.NURSE ---
pt refused all medications this morning. reports she is going home today and will take her meds when she gets home
--- NOTE | 2022-02-22 09:43 | HMH.PHAINT ---
DISCHARGE MEDICATION COUNSELING PROVIDED, DISCUSSED HOW TO TAKE THE PERCOCET. PATIENT ENDORSED NO QUESTIONS AT THIS TIME.
== END 2022-02-22 10:00 | disposition home or self-care (01) ==
LOC: ER 22:28 → 2ND 02-22 01:00
PROVIDERS: Admitting Provider Emergency Medicine; Emergency Provider Emergency Medicine; Visit Provider Internal Medicine Adolescent Medicine
DX: S20.212A Contusion of left front wall of thorax, initial encounter (principal); S22.42XA Multiple fractures of ribs, left side, initial encounter for closed fracture; E11.9 Type 2 diabetes mellitus without complications; Z79.4 Long term (current) use of insulin; Z79.01 Long term (current) use of anticoagulants; R79.1 Abnormal coagulation profile; Z79.899 Other long term (current) drug therapy; Z88.8 Allergy status to other drugs, medicaments and biological substances; Z95.2 Presence of prosthetic heart valve; I48.91 Unspecified atrial fibrillation; K21.9 Gastro-esophageal reflux disease without esophagitis; I42.9 Cardiomyopathy, unspecified; I25.10 Atherosclerotic heart disease of native coronary artery without angina pectoris; I50.9 Heart failure, unspecified; I11.0 Hypertensive heart disease with heart failure; E78.5 Hyperlipidemia, unspecified; J44.9 Chronic obstructive pulmonary disease, unspecified; E03.9 Hypothyroidism, unspecified; D64.9 Anemia, unspecified; W01.0XXA Fall on same level from slipping, tripping and stumbling without subsequent striking against object, initial encounter; Y92.019 Unspecified place in single-family (private) house as the place of occurrence of the external cause
CPT/HCPCS: G0378; 70450; 71101; 71250; 72125; 72170; 74176; 80048; 80053; 81001; 83880; 84145; 84484; 85025; 85610; 85651; 86140; 93005; 96365; 96375; 99285; C9803; J2405; U0003; U0005

== ENCOUNTER 2022-02-24 09:33 | Outpatient (CLI) | payer MEDICARE, MEDICAID, SELFPAY ==
[2022-02-24] VITALS (10 sets, daily range): BP systolic 115–154; BP diastolic 71–98; PULSE 90–105; RESP 16–18; TEMP 36.4–36.9; O2SAT 88–99; BMI 34.4
[2022-02-24 10:03] LABS: Basophils # 0.1 K/mm3 (0-0.2); Basophils % 0.5 % (0.1-2.0); Eosinophils # 0.2 K/mm3 (0.0-0.4); Eosinophils % 2.6 % (0.1-12.0); Hematocrit 25.4 % (37.0-47.0); Hemoglobin 7.7 g/dL (12.2-16.2); Lymphocytes # 0.4 K/mm3 (0.7-4.5); Mean Corpuscular HGB Conc 30.2 g/dL (31.8-35.4); Mean Corpuscular Hemoglobin 24.5 pg (27.0-31.2); Mean Corpuscular Volume 81.2 fl (81-99); Mean Platelet Volume 8.8 fl (7.4-10.4); Monocytes # 0.6 K/mm3 (0.1-1.0); Monocytes % 6.5 % (1.7-9.3); Neutrophils # 8.1 K/mm3 (1.8-7.8); Neutrophils % 86.4 % (37.0-80.0); Platelet Count 288 K/mm3 (142-424); Red Blood Count 3.13 M/mm3 (4.20-5.40); Red Cell Distribution Width 20.4 % (11.5-17.5); White Blood Count 9.4 K/mm3 (4.8-10.8)
[2022-02-24 10:09] LABS: MANUAL DIFFERENTIAL MANUAL DIFFERENTIAL (MANUAL DIFF)
[2022-02-24 10:30] LABS: Anisocytosis 1+; Eosinophils % 1 % (0-3); Hypochromasia 2+; Lymphocytes % 7 % (10-50); Monocytes % 4 % (2-9); Neutrophils % 88 % (42-76); Platelet Estimate Normal; RBC Morphology MP; Total Cells Counted 100
[2022-02-24 15:13] LABS: Hematocrit 25.4 % (37.0-47.0)
== END 2022-02-24 15:10 | disposition home or self-care (01) ==
LOC: INF 09:34
PROVIDERS: PCP Internal Medicine Adolescent Medicine; Visit Provider Internal Medicine Medical Oncology
DX: Z79.01 Long term (current) use of anticoagulants (principal); D50.9 Iron deficiency anemia, unspecified
CPT/HCPCS: 36430; 85007; 85014; 85018; 85025; 86850; J1642; P9016

== ENCOUNTER 2022-03-01 13:46 | Emergency (ER) | payer MEDICARE, MEDICAID, SELFPAY ==
[2022-03-01 13:47] VITALS: BP 139/82; PULSE 91; RESP 19; TEMP 36.7; O2SAT 98; BMI 36.0
--- NOTE | 2022-03-01 13:56 | HMH.EDSOB ---
ED Disposition Clinical Impression: Pulmonary edema cardiac cause Disposition: Home, Self-Care Condition on Discharge: Fair Instructions: Heart Failure, DI for Shortness of Breath Additional Instructions: Follow-up with your primary care physician as scheduled on Wednesday. The next time you take Bumex please take twice the normal dose. Return to the emergency department if you feel worse in any way. Referrals: Neptali Herbert MD [Primary Care Provider] - - Critical Care Critical Care Time: No Attestation: On , the high probability of a clinically significant, sudden or life threatening deterioration of the following system(s) required my full and direct attention, intervention and personal management. The time I documented below is in addition to time spent performing reported procedures but includes the following listed in this critical care notation. Medical Decision Making - Medical Records Medical records reviewed: Yes: I reviewed the patient's medical records. - Jeancarlos Inquiry Pt receiving controlled substance: No Vital Signs: 03/01/22 13:47 03/01/22 14:00 Temperature 98.1 F Temperature Source Oral Pulse Rate 104 H Pulse Rate [Right Radial] 91 H Respiratory Rate 19 Blood Pressure 124/67 Blood Pressure [Right Arm] 139/82 Blood Pressure Mean 94 Blood Pressure Mean [Right Arm] 101 Blood Pressure Source [Right Arm] Automatic Cuff Blood Pressure Position [Right Arm] Sitting 02 Sat by Pulse Oximetry 98 97 Oxygen Delivery Method Room Air - Lab Data Lab results reviewed: Yes: I reviewed the patient's lab results. Lab Results 03/01/22 14:35: WBC 6.2, RBC 3.36 L, Hgb 8.2 L, Hct 26.3 L, MCV 78.3 L, MCH 24.2 L, MCHC 30.9 L, RDW 20.6 H, Plt Count 293, MPV 8.6, Neut % (Auto) 80.2 H, Lymph % (Auto) 8.9 L, [place] % (Auto) 6.7, Eos % (Auto) 3.2, Baso % (Auto) 0.9, Neut # (Auto) 4.9, Lymph # (Auto) 0.6 L, [place] # (Auto) 0.4, Eos # (Auto) 0.2, Baso # (Auto) 0.1 03/01/22 14:35: PT 25.3 H, INR 2.39 H, APTT 53.5 H 03/01/22 14:35: Sodium 140, Potassium 3.2 L, Chloride 112 H, Carbon Dioxide 24, Anion Gap 7.2, BUN 15, Creatinine 0.80, Estimated Creat Clear 115, Estimated GFR 74, Est GFR ( Amer) 89, Glucose 82, Calcium 6.4 L, Total Bilirubin 0.7, AST 19, ALT 13, Alkaline Phosphatase 69, Total Protein 5.3 L, Albumin 3.0 L, Globulin 2.3, Albumin/Globulin Ratio 1.3 Result diagrams: 03/01/22 14:35 03/01/22 14:35 Orders (Tests/Meds): ED MEDICATIONS Generic Name Dose Route Start Last Admin Trade Name Freq PRN Reason Stop Dose Admin Sodium Chloride 10 ml 03/01/22 14:38 Sodium Chloride 0.9% 10ml Flush Syringe IV 03/31/22 14:37 NEEDED PRN Maintain IV Site - Radiology Data #1 Image(s): Chest Image Reviewed: Yes I reviewed the patient's radiology image, Yes I have reviewed radiologist's interpretation Preliminary Findings: Abnormal (Edges consistent with mild to moderate pulmonary edema.) - ECG Data Tracing #1 I reviewed this ECG and interpreted as documented below: Patient is ECG was done at 1404. It shows atrial fibrillation with a ventricular response rate of 96 bpm. There is an incomplete right bundle branch block otherwise there is no evidence of ischemia and or acute process. Medical Decision Narrative: The patient's work-up in the emergency department did not reveal any immediately life-threatening or dangerous causes for the patient's symptoms. She has a history of anemia. Her hemoglobin is 8.2. This does not require emergent transfusion. The patient's INR is also therapeutic. His oxygen saturations are in the low 90s. She is in atrial fibrillation without a rapid ventricular response. Patient is already on Bumex. I have recommended that she double up on her Bumex during her next dosing. I also recommend that the patient follow-up with her primary care physician as scheduled on Wednesday. Resp/SOB HPI - General Chief Complaint: Shortness of Breath/Dyspn
[2022-03-01 14:00] VITALS: BP 124/67; PULSE 104; O2SAT 97
--- NOTE | 2022-03-01 14:00 | XR_ITS ---
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 TECHNIQUE: Imaging protocol: XR of the chest. Views: 2 views. COMPARISON: CT CHEST WO CON 02/21/2022 10:35 PM FINDINGS: Tubes, catheters and devices: Prosthetic mitral valve is noted. A right infusion port is present. There are sternal wires consistent with previous sternotomy incision. Airway: Patent Lungs: Diffuse interstitial prominence and bilateral perihilar streakiness. Bilateral segmental bronchial wall thickening. Pleural spaces: Subtle blunting of the right costophrenic angle. No large pleural effusions are noted. There is no evidence of pneumothorax. Heart/Mediastinum: The heart is markedly enlarged. Bones/joints: No acute skeletal abnormality or aggressive osseous lesion. IMPRESSION: Findings are most in favor with early/mild interstitial pulmonary edema.
--- NOTE | 2022-03-01 14:00 | PC.NURSE ---
Tech in room obtaining EKG
--- NOTE | 2022-03-01 14:03 | ECG_ITS ---
APPROVED REPORT Exam: Resting ECG HR:96 bpm ECG Measurements Heart Rate 96 AXES QRSd 118 QRS 76 QT 380 T 75 QTc 433 Conclusion ATRIAL FIBRILLATION WITH ABERRANT CONDUCTION OR VENTRICULAR PREMATURE COMPLEXES INCOMPLETE RIGHT BUNDLE BRANCH BLOCK [90+ ms QRS DURATION, TERMINAL R IN V1/V2, 40+ ms S IN I/aVL/V4/V5/V6] NONSPECIFIC T-WAVE ABNORMALITY ABNORMAL RHYTHM ECG UNCONFIRMED REPORT Electronically signed by : Reji Castro MD 03/02/2022 15:59:03
--- NOTE | 2022-03-01 14:10 | PC.NURSE ---
PT to Rad
--- NOTE | 2022-03-01 14:20 | PC.NURSE ---
Pt back from RAD
[2022-03-01 14:30] VITALS: BP 125/81; PULSE 97; RESP 16; O2SAT 95
[2022-03-01 14:46] LABS: Basophils # 0.1 K/mm3 (0-0.2); Basophils % 0.9 % (0.1-2.0); Eosinophils # 0.2 K/mm3 (0.0-0.4); Eosinophils % 3.2 % (0.1-12.0); Hematocrit 26.3 % (37.0-47.0); Hemoglobin 8.2 g/dL (12.2-16.2); Lymphocytes # 0.6 K/mm3 (0.7-4.5); Lymphocytes % 8.9 % (10-50); Mean Corpuscular HGB Conc 30.9 g/dL (31.8-35.4); Mean Corpuscular Hemoglobin 24.2 pg (27.0-31.2); Mean Corpuscular Volume 78.3 fl (81-99); Mean Platelet Volume 8.6 fl (7.4-10.4); Monocytes # 0.4 K/mm3 (0.1-1.0); Monocytes % 6.7 % (1.7-9.3); Neutrophils # 4.9 K/mm3 (1.8-7.8); Neutrophils % 80.2 % (37.0-80.0); Platelet Count 293 K/mm3 (142-424); Red Blood Count 3.36 M/mm3 (4.20-5.40); Red Cell Distribution Width 20.6 % (11.5-17.5); White Blood Count 6.2 K/mm3 (4.8-10.8)
[2022-03-01 14:53] LABS: Chloride 112 mmol/L (98-107); Potassium 3.2 mmoL/L (3.5-5.1); Sodium 140 mmol/L (136-145)
[2022-03-01 14:55] LABS: Alanine Aminotransferase 13 U/L (12-78); Alkaline Phosphatase 69 U/L (38-126); Aspartate Amino Transferase 19 U/L (14-36); Bilirubin,Total 0.7 mg/dl (0.2-1.3); Blood Urea Nitrogen 15 mg/dl (7-17); Creatinine Clearance Estimated 115 mL/min (50-200); Estimated Glomerular Filt Rate 74 ml/min (>60); GFR (African American) 89 ML/MIN (>60)
[2022-03-01 14:56] LABS: Albumin/Globulin Ratio 1.3 (1.1-1.8); Calcium 6.4 mg/dl (8.4-10.2); Globulin 2.3 g/dL (1.3-3.2); Glucose 82 mg/dl (74-100); Total Protein,Serum 5.3 g/dl (6.3-8.2)
[2022-03-01 14:58] LABS: Activated Partial Thrombo Time 53.5 seconds (22.8-30.6); INR 2.39 (0.9-1.1); Prothrombin Time 25.3 seconds (10.1-12.5)
[2022-03-01 15:00] VITALS: BP 123/76; PULSE 95; RESP 20; O2SAT 94
[2022-03-01 15:06] LABS: Anion Gap 7.2 mEq/L (5-15); Carbon Dioxide 24 mmol/L (22.0-30.0)
[2022-03-01 16:01] VITALS: BP 137/76; PULSE 86; RESP 15; O2SAT 99
[2022-03-01 16:17] VITALS: BP 137/76; PULSE 86; RESP 15; TEMP 36.9; O2SAT 99
== END 2022-03-01 16:18 | disposition home or self-care (01) ==
PROVIDERS: Emergency Provider Emergency Medicine; PCP Internal Medicine Adolescent Medicine
DX: R06.02 Shortness of breath (principal); I11.0 Hypertensive heart disease with heart failure; I50.20 Unspecified systolic (congestive) heart failure; K21.9 Gastro-esophageal reflux disease without esophagitis; E78.5 Hyperlipidemia, unspecified; I25.10 Atherosclerotic heart disease of native coronary artery without angina pectoris; I35.9 Nonrheumatic aortic valve disorder, unspecified; I48.91 Unspecified atrial fibrillation; R79.1 Abnormal coagulation profile; E11.9 Type 2 diabetes mellitus without complications; E03.9 Hypothyroidism, unspecified; M19.90 Unspecified osteoarthritis, unspecified site; K76.9 Liver disease, unspecified; J44.9 Chronic obstructive pulmonary disease, unspecified; Z79.01 Long term (current) use of anticoagulants; Z79.4 Long term (current) use of insulin; Z79.51 Long term (current) use of inhaled steroids; Z79.899 Other long term (current) drug therapy; Z79.82 Long term (current) use of aspirin; Z88.5 Allergy status to narcotic agent; Z88.8 Allergy status to other drugs, medicaments and biological substances; Z86.718 Personal history of other venous thrombosis and embolism; Z87.891 Personal history of nicotine dependence; Z82.49 Family history of ischemic heart disease and other diseases of the circulatory system; Z83.438 Family history of other disorder of lipoprotein metabolism and other lipidemia; Z84.1 Family history of disorders of kidney and ureter; Z81.8 Family history of other mental and behavioral disorders; Z83.2 Family history of diseases of the blood and blood-forming organs and certain disorders involving the immune mechanism
CPT/HCPCS: 71046; 80053; 85025; 85610; 85730; 93005; 96374; 99285; J1642

== ENCOUNTER 2022-03-03 09:28 | Outpatient (CLI) | payer MEDICARE, MEDICAID, SELFPAY ==
[2022-03-03] VITALS (11 sets, daily range): BP systolic 108–141; BP diastolic 62–88; PULSE 71–81; RESP 16–20; TEMP 36.6–37; O2SAT 95–97; BMI 34.4
[2022-03-03 10:11] LABS: Basophils % 0.7 % (0.1-2.0); Eosinophils # 0.2 K/mm3 (0.0-0.4); Eosinophils % 2.9 % (0.1-12.0); Hematocrit 25.5 % (37.0-47.0); Hemoglobin 7.9 g/dL (12.2-16.2); Lymphocytes # 0.4 K/mm3 (0.7-4.5); Lymphocytes % 7.2 % (10-50); Mean Corpuscular HGB Conc 30.8 g/dL (31.8-35.4); Mean Corpuscular Volume 78.1 fl (81-99); Mean Platelet Volume 8.8 fl (7.4-10.4); Monocytes # 0.4 K/mm3 (0.1-1.0); Monocytes % 6.9 % (1.7-9.3); Neutrophils # 4.7 K/mm3 (1.8-7.8); Neutrophils % 82.4 % (37.0-80.0); Platelet Count 302 K/mm3 (142-424); Red Blood Count 3.27 M/mm3 (4.20-5.40); Red Cell Distribution Width 20.6 % (11.5-17.5); White Blood Count 5.7 K/mm3 (4.8-10.8)
[2022-03-03 10:29] LABS: Iron 28 ug/dL (37-170)
[2022-03-03 10:38] LABS: Total Iron Binding Capacity 438 ug/dL (265-497)
[2022-03-03 11:06] LABS: Ferritin 10.2 ng/ml (11.1-264)
--- NOTE | 2022-03-03 15:00 | PC.NURSE ---
1154 Initiation of transfusion of one unit PRBC at this time. Vital signs stable. Lungs CTA. Patient does have some shortness of breath with exertion, but reports that this is her normal and no increase. O2 sats stable on room air. Skin warm/dry to touch. Resp easy/reg at rest. R port patent with good blood return/flushes easily. 1224 Patient tolerating blood well with no s/s transfusion reaction or problems noted. Port patent. Patient denies complaints. Vital signs stable. 1254 Continues to tolerate blood well. No s/s transfusion reaction or problems. Vital signs stable. Patient sleeping at intervals 1354 Tolerating blood well. VSS. Lungs consistent with baseline. No problems/denies complaints. 1410 Blood complete at this time. Lungs consistent with baseline assessment. VSS. Skin warm/dry to touch. No s/s transfusion reaction or problems noted. 1510 One hour post transfusion H&H collected at this time. Port deaccessed. Patient discharged home/stable/no s/s transfusion reaction or problems noted. Resp/lungs consistent with baseline. VSS.
[2022-03-03 15:25] LABS: Hematocrit 26.5 % (37.0-47.0); Hemoglobin 8.1 g/dL (12.2-16.2)
== END 2022-03-03 15:10 | disposition home or self-care (01) ==
LOC: INF 09:28
PROVIDERS: PCP Internal Medicine Adolescent Medicine; Visit Provider Internal Medicine Medical Oncology
DX: Z45.2 Encounter for adjustment and management of vascular access device (principal); I50.9 Heart failure, unspecified; Z79.01 Long term (current) use of anticoagulants; Z95.2 Presence of prosthetic heart valve
CPT/HCPCS: 36430; 82728; 83540; 83550; 85014; 85018; 85025; 86850; J1642; P9016

== ENCOUNTER 2022-03-05 08:13 | Outpatient (CLI) | payer MEDICARE, MEDICAID, SELFPAY ==
[2022-03-05 08:43] VITALS: BP 136/83; PULSE 79; RESP 18; O2SAT 100
[2022-03-05 09:30] VITALS: BP 131/75; PULSE 78; RESP 18
== END 2022-03-05 09:30 | disposition home or self-care (01) ==
LOC: INF 08:14
PROVIDERS: PCP Internal Medicine Adolescent Medicine; Visit Provider Internal Medicine Medical Oncology
DX: D64.9 Anemia, unspecified (principal)
CPT/HCPCS: 96365; J1439; J1642

== ENCOUNTER 2022-03-07 01:59 | Inpatient (IN) | payer MEDICARE, MEDICAID, SELFPAY ==
[2022-03-07] VITALS (21 sets, daily range): BP systolic 112–148; BP diastolic 59–104; PULSE 67–125; RESP 12–22; TEMP 36.6–39.2; O2SAT 89–100; BMI 34.3; BMI 35.8
--- NOTE | 2022-03-07 01:29 | XR_ITS ---
PROCEDURE INFORMATION: Exam: XR Chest Exam date and time: 03/07/2022 1:34 AM Age: 56 years old Clinical indication: Shortness of breath and other: A fib; Prior surgery; Surgery date: 6+ months; Surgery type: Open heart mems device in pulmonary artery states patient and a port; Additional info: SOA, afib TECHNIQUE: Imaging protocol: XR of the chest. Views: 1 view. COMPARISON: CR XR CHEST 2V 03/01/2022 2:03 PM FINDINGS: Tubes, catheters and devices: Right internal jugular central venous catheter tip in the lower superior vena cava. Lungs: Right basilar opacity, likely atelectasis and possibly pleural fluid and pneumonia. Minimal left basilar atelectasis. Pleural spaces: See Lungs finding. Heart/Mediastinum: Changes of prior sternotomy and mitral valve repair. Cardiomegaly. Bones/joints: Multilevel thoracic spine degenerative disc disease. IMPRESSION: Right basilar opacity, likely atelectasis and possibly pleural fluid and pneumonia. Recommend follow-up.
--- NOTE | 2022-03-07 01:32 | ECG_ITS ---
APPROVED REPORT Exam: Resting ECG HR:130 bpm ECG Measurements Heart Rate 130 AXES QRSd 94 QRS 102 QT 323 T 44 QTc 400 Conclusion ATRIAL FIBRILLATION WITH RAPID VENTRICULAR RESPONSE RIGHT AXIS DEVIATION [QRS AXIS > 100] LOW QRS VOLTAGE IN PRECORDIAL LEADS [QRS DEFLECTION < 1.0 mV IN CHEST LEADS] INCOMPLETE RIGHT BUNDLE BRANCH BLOCK [90+ ms QRS DURATION, TERMINAL R IN V1/V2, 40+ ms S IN I/aVL/V4/V5/V6] NONSPECIFIC T-WAVE ABNORMALITY ABNORMAL ECG UNCONFIRMED REPORT Electronically signed by : Reji Castro MD 03/07/2022 08:08:52
[2022-03-07 01:46] LABS: Coronavirus 19, PCR Not Detected (NotDetected); Influenza A, PCR Not Detected (NotDetected); Influenza B, PCR Not Detected (NotDetected)
[2022-03-07 01:52] LABS: ABG Base Excess 3.3 mmol/L (-2.4-2.3); ABG HCO3 27.4 mmhg (22.0-26.0); ABG Oxygen Saturation 98 % (90-100); ABG PCO2 40.7 mmhg (35.0-45.0); ABG PH 7.45 mmol/L (7.35-7.45); ABG PO2 113.4 mmhg (80-100); ABG TCO2 28.6 mmhg (23-27); Allen's Test Acceptable; Oxygen 15L %
[2022-03-07 01:53] LABS: Basophils # 0.1 K/mm3 (0-0.2); Basophils % 0.4 % (0.1-2.0); Eosinophils # 0.2 K/mm3 (0.0-0.4); Eosinophils % 1.8 % (0.1-12.0); Hematocrit 30.1 % (37.0-47.0); Hemoglobin 9.1 g/dL (12.2-16.2); Lymphocytes # 0.4 K/mm3 (0.7-4.5); Lymphocytes % 2.9 % (10-50); Mean Corpuscular HGB Conc 30.3 g/dL (31.8-35.4); Mean Corpuscular Hemoglobin 23.9 pg (27.0-31.2); Mean Platelet Volume 10.3 fl (7.4-10.4); Monocytes # 0.4 K/mm3 (0.1-1.0); Monocytes % 3.1 % (1.7-9.3); Neutrophils # 11.7 K/mm3 (1.8-7.8); Neutrophils % 91.8 % (37.0-80.0); Platelet Count 348 K/mm3 (142-424); Red Blood Count 3.81 M/mm3 (4.20-5.40); Red Cell Distribution Width 21.5 % (11.5-17.5); White Blood Count 12.7 K/mm3 (4.8-10.8)
[2022-03-07 01:53] LABS: Source Right Radial
[2022-03-07 01:59] LABS: Lactic Acid 1.4 mmol/L (0.7-2.1)
[2022-03-07 02:01] LABS: MANUAL DIFFERENTIAL MANUAL DIFFERENTIAL (MANUAL DIFF)
[2022-03-07 02:14] LABS: Alanine Aminotransferase 20 U/L (12-78); Albumin Level 4.3 g/dl (3.5-5.0); Albumin/Globulin Ratio 1.6 (1.1-1.8); Alkaline Phosphatase 110 U/L (38-126); Anion Gap 10.1 mEq/L (5-15); Aspartate Amino Transferase 36 U/L (14-36); Bilirubin,Total 0.8 mg/dl (0.2-1.3); Blood Urea Nitrogen 20 mg/dl (7-17); Calcium 9.1 mg/dl (8.4-10.2); Carbon Dioxide 30 mmol/L (22.0-30.0); Chloride 103 mmol/L (98-107); Creatinine Clearance Estimated 88 mL/min (50-200); Estimated Glomerular Filt Rate 57 ml/min (>60); GFR (African American) 69 ML/MIN (>60); Globulin 2.7 g/dL (1.3-3.2); Glucose 208 mg/dl (74-100); Magnesium 1.6 mg/dl (1.6-2.3); Potassium 4.1 mmoL/L (3.5-5.1); Sodium 139 mmol/L (136-145)
[2022-03-07 02:15] LABS: Anisocytosis 3+; Eosinophils % 1 % (0-3); Lymphocytes % 4 % (10-50); Monocytes % 1 % (2-9); Neutrophils % 84 % (42-76); Platelet Estimate Normal; Poikilocytosis 1+; Total Cells Counted 100
[2022-03-07 02:16] LABS: Hypochromasia 2+; Microcytosis 2+
[2022-03-07 02:17] LABS: INR 3.39 (0.9-1.1)
[2022-03-07 02:26] LABS: Erythrocyte Sedimentation Rate 19 mm/hr (0-30)
[2022-03-07 02:28] LABS: NT Pro Brain Natriuretic Pep. 1100 pg/mL (0-125)
[2022-03-07 02:33] LABS: Procalcitonin 0.095 ng/mL (0.0-2.0)
[2022-03-07 02:36] LABS: Troponin I < 0.01 ng/ml (0.00-0.034)
--- NOTE | 2022-03-07 03:17 | HMH.EDSOB ---
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 with INR goal of 2.5-3.5, History of mitral valve replacement with mechanical valve, SIRS (systemic inflammatory response syndrome) Afib Qualifiers: Atrial fibrillation type: unspecified chronic Qualified Code(s): I48.20 - Chronic atrial fibrillation, unspecified Disposition: Admitted as Observation Condition on Discharge: Fair Referrals: Neptali Herbert MD [Primary Care Provider] - - Critical Care Critical Care Time: No Attestation: On 03/07/22, the high probability of a clinically significant, sudden or life threatening deterioration of the following system(s) required my full and direct attention, intervention and personal management. The time I documented below is in addition to time spent performing reported procedures but includes the following listed in this critical care notation. Medical Decision Making - Medical Records Medical records reviewed: Yes: I reviewed the patient's medical records. - Jeancarlos Inquiry Pt receiving controlled substance: No Vital Signs: 03/07/22 01:32 03/07/22 01:38 03/07/22 02:00 Temperature 99.8 F H Temperature Source Oral Pulse Rate 102 H 114 H Pulse Rate [Apical] 75 Respiratory Rate 18 Blood Pressure 139/69 139/73 Blood Pressure [Right Arm] 139/69 Blood Pressure Mean 80 Blood Pressure Mean [Right Arm] 92 Blood Pressure Source Blood Pressure Source [Right Arm] Automatic Cuff Blood Pressure Position Blood Pressure Position [Right Arm] Sitting 02 Sat by Pulse Oximetry 100 99 99 Oxygen Delivery Method Simple Mask Nasal Cannula Nasal Cannula Oxygen Flow Rate (LPM) 15 4 4 03/07/22 02:10 03/07/22 02:20 03/07/22 02:30 Temperature 99.1 F Temperature Source Oral Pulse Rate 100 H 67 125 H Pulse Rate [Apical] Respiratory Rate 20 Blood Pressure 143/79 H 148/76 H 143/79 H Blood Pressure [Right Arm] Blood Pressure Mean 86 Blood Pressure Mean [Right Arm] Blood Pressure Source Automatic Cuff Blood Pressure Source [Right Arm] Blood Pressure Position Sitting Blood Pressure Position [Right Arm] 02 Sat by Pulse Oximetry 94 L 89 L 95 Oxygen Delivery Method Nasal Cannula Nasal Cannula Nasal Cannula Oxygen Flow Rate (LPM) 4 4 4 03/07/22 02:35 03/07/22 03:06 03/07/22 03:31 Temperature Temperature Source Pulse Rate 113 H 99 H 108 H Pulse Rate [Apical] Respiratory Rate 17 12 Blood Pressure 139/62 125/76 Blood Pressure [Right Arm] Blood Pressure Mean Blood Pressure Mean [Right Arm] Blood Pressure Source Blood Pressure Source [Right Arm] Blood Pressure Position Blood Pressure Position [Right Arm] 02 Sat by Pulse Oximetry 96 91 L 93 L Oxygen Delivery Method Nasal Cannula Nasal Cannula Nasal Cannula Oxygen Flow Rate (LPM) 4 4 4 03/07/22 04:23 03/07/22 04:29 Temperature 100.1 F H 102.6 F H Temperature Source Oral Oral Pulse Rate 110 H 137 H Pulse Rate [Apical] Respiratory Rate 20 Blood Pressure 145/104 H 145/104 H Blood Pressure [Right Arm] Blood Pressure Mean Blood Pressure Mean [Right Arm] Blood Pressure Source Automatic Cuff Blood Pressure Source [Right Arm] Blood Pressure Position Sitting Blood Pressure Position [Right Arm] 02 Sat by Pulse Oximetry 94 L 93 L Oxygen Delivery Method Nasal Cannula Nasal Cannula Oxygen Flow Rate (LPM) 4 4 - Lab Data Lab results reviewed: Yes: I reviewed the patient's lab results. Lab Results 03/07/22 01:30: WBC 12.7 H, RBC 3.81 L, Hgb 9.1 L, Hct 30.1 L, MCV 79.0 L, MCH 23.9 L, MCHC 30.3 L, RDW 21.5 H, Plt Count 348, MPV 10.3, Neut % (Auto) 91.8 H, Lymph % (Auto) 2.9 L, [place] % (Auto) 3.1, Eos % (Auto) 1.8, Baso % (Auto) 0.4, Neut # (Auto) 11.7 H, Lymph # (Auto) 0.4 L, [place] # (Auto) 0.4, Eos # (Auto) 0.2, Baso # (Auto) 0.1, Total Counte
--- NOTE | 2022-03-07 04:32 | PC.NURSE ---
paged dr Roland
[2022-03-07 05:07] LABS: Troponin I < 0.01 ng/ml (0.00-0.034)
--- NOTE | 2022-03-07 05:20 | PC.NURSE ---
pt arrived to floor via stretcher at this time
[2022-03-07 08:27] LABS: Troponin I 0.01 ng/ml (0.00-0.034)
--- NOTE | 2022-03-07 08:48 | HMH.HP ---
*Admission Date: 03/07/22 *Chief complaint: Cough/fever *History of present illness: 56-year-old white female with history of CHF, autoimmune anemia, chronic A. fib, frequent CHF and COPD exacerbations who came to the emergency department with fever that happened during the night, cough and congestion. In the ER was found to have slightly elevated white count, infiltrate on chest x-ray was admitted for evaluation of SIRS and pneumonia. [facility] History I have reviewed the patient's past medical history: Yes Medical History: Reports:: Arrhythmia, Atrial Fibrillation, Cancer, Cardiomyopathy, Congestive Heart Failure, Chronic Obstructive Pulmonary Disease (COPD), Congenital Heart Disease, Coronary Artery Disease, Deep Vein Thrombosis, Diabetes Mellitus Type 2, Gastroesophageal Reflux Disease(GERD), Hyperlipidemia, Hypertension, Valvular Heart Disease Denies:: Diabetes Mellitus Type 1, MRSA, Seizures *Have you ever received a pneumonia vaccine?: Yes *Have you received a flu vaccine this season?: Yes Other Medical History: Reports: Anemia, Arthritis, Blood Transfusion Reaction, Hypothyroidism, Liver Disease, Sinus Problems, Thyroid Disease Other Surgeries: Yes: Cardiac Catheterization, Colon Resection, Hernia Repair, Tubal Ligation, Other Amputation: No Fractures: No - *Social History Last grade of school completed: High school graduate Smoking Status: Former smoker Tobacco Type: cigarettes # Packs/Day (cigarettes): 1 Smoking End Date: 2005 Alcohol Intake: never Substance Use Type: denies use *Occupational Status:: retired Housing: house Household Members: none *Travel in the last 8 weeks: None Family Hx:: Unable to obtain Review of Systems - Review of Systems Review of systems:: pertinent systems reviewed and negative unless documented below - *Neurologic Denies headache(s), Denies seizure-like activity Meds Home Medications Medication Instructions Recorded Confirmed Type aspirin 81 mg tablet,delayed 81 mg PO DAILY 12/01/17 03/07/22 History release oxycodone-acetaminophen 10 mg-325 1 tab PO TIDP PRN tab 05/23/18 03/07/22 History mg tablet alprazolam 0.5 mg tablet 0.5 mg PO TIDP PRN 11/29/19 03/07/22 History citalopram 40 mg tablet 40 mg PO DAILY tab 03/31/21 03/07/22 History famotidine 20 mg tablet 20 mg PO DAILYP PRN 04/22/21 03/07/22 History Levothyroxine Sodium [Synthroid 25 mcg PO DAILY 06/05/21 03/07/22 History 25mcg (0.025mg) tablet] Dexlansoprazole [Dexilant] 60 mg PO DAILY 06/06/21 03/07/22 History Ergocalciferol (Vitamin D2) 50,000 units PO MONTHLY 06/06/21 03/07/22 History [Drisdol 50,000 units (1.25mg) capsule] Olopatadine HCl 1 drp OU DAILY 06/23/21 03/07/22 History Ondansetron [Zofran 4mg ODT] 4 mg PO Q8HP PRN 06/23/21 03/07/22 History warfarin 5 mg tablet 5 mg PO DAILY tab 09/09/21 03/07/22 History calcitriol 0.25 mcg capsule 0.25 mcg PO Q OTHER DAY cap 10/02/21 03/07/22 History metolazone 2.5 mg tablet 2.5 mg PO DAILY PRN tab 10/02/21 03/07/22 History spironolactone 25 mg tablet 25 mg PO BID #60 tab 10/02/21 03/07/22 Rx metoprolol succinate 25 mg 50 mg PO HS tab 10/13/21 03/07/22 History tablet,extended release 24 hr bumetanide 2 mg tablet 1 mg PO BID tab 01/22/22 03/07/22 History colchicine 0.6 mg capsule 0.6 mg PO DAILY PRN cap 01/22/22 03/07/22 History febuxostat 40 mg tablet 40 mg PO DAILY 01/22/22 03/07/22 History potassium chloride 20 mEq 20 meq PO DAILY tab 01/22/22 03/07/22 History tablet,extended release(part/cryst) Insulin Glargine/Lixisenatide 30 units SQ DAILY 02/22/22 03/07/22 History [Soliqua 100 Unit-33 Mcg/ml Pen] Oxycodone HCl/Acetaminophen 1 tab PO Q4H PRN #20 tab 02/22/22 02/24/22 Rx [Percocet 10-325 mg Tablet] Sennosides/Docusate Sodium 1 tab PO BID 02/22/22 03/07/22 History [Senokot-S Tablet] Allergies Allergy/AdvReac Type Severity Reaction Status Date / Time codeine [CODEINE] Allergy Unknown nausea, Verified 03/03/22 14:33 swelling
[2022-03-07 09:31] LABS: Adenovirus,PCR Not Detected (NotDetected); Bordetella Pertussis Not Detected (NotDetected); Chlamydophila Pneumoniae, PCR Not Detected (NotDetected); Coronavirus 229E Not Detected (NotDetected); Coronavirus NL63 Not Detected (NotDetected); Coronavirus OC43 Not Detected (NotDetected); Coronovirus HKU1,PCR Not Detected (NotDetected); Human Metapneumovirus Not Detected (NotDetected); Influenza A, PCR Not Detected (NotDetected); Influenza AH1, 2009 Not Detected (NotDetected); Influenza AH1, PCR Not Detected (NotDetected); Influenza AH3,PCR Not Detected (NotDetected); Influenza B, PCR Not Detected (NotDetected); Mycoplasma Pneumoniae, PCR Not Detected (NotDetected); Parainfluenza 1, PCR Not Detected (NotDetected); Parainfluenza 2, PCR Not Detected (NotDetected); Parainfluenza 3, PCR Not Detected (NotDetected); Parainfluenza 4, PCR Not Detected (NotDetected); Respiratory Syncytial Virus Not Detected (NotDetected); Rhinovirus/Enterovirus Not Detected (NotDetected)
--- NOTE | 2022-03-07 09:53 | HMH.PHAVTE ---
[facility] Pharmacy VTE Monitoring - Patient Demographics Admission date: 03/07/22 Report Date: 03/07/22 Time: 09:54 Allergies/Adverse Reactions: Patient Allergies codeine [CODEINE] Allergy (Unknown, Verified 03/03/22 14:33) nausea, swelling Corticosteroids (Glucocorticoids) [CORTICOSTEROIDS (GLUCOCORTICOIDS)] Allergy (Unknown, Verified 03/03/22 14:33) rosuvastatin [From CRESTOR] Allergy (Unknown, Verified 03/03/22 14:33) theophylline [From DAVID-DUR] Allergy (Unknown, Verified 03/03/22 14:33) Iodinated Contrast Media [IODINATED CONTRAST- ORAL AND IV DYE] Adverse Reaction (Severe, Verified 03/03/22 14:33) shuts kidneys down and bleeding buprenorphine [From BUPRENEX] Adverse Reaction (Intermediate, Verified 03/03/22 14:33) Nausea prednisone Adverse Reaction (Verified 03/03/22 14:33) Height: 1.63 m Weight: 95.254 kg Patient Problems: Current Active Problems Acute on chronic HFrEF (heart failure with reduced ejection fraction) (Acute) SIRS (systemic inflammatory response syndrome) (Acute) Acute exacerbation of chronic obstructive airways disease (Acute) Afib (Chronic) shelter current use of anticoagulants with INR goal of 2.5-3.5 (Chronic) History of mitral valve replacement with mechanical valve (Chronic) - VTE Risk Labs: VTE Related Lab Results Hgb 9.1 g/dL (12.2-16.2) L 03/07/22 01:30 Hct 30.1 % (37.0-47.0) L 03/07/22 01:30 Plt Count 348 K/mm3 (142-424) 03/07/22 01:30 PT 35.0 seconds (10.1-12.5) H 03/07/22 01:56 INR 3.39 (0.9-1.1) H 03/07/22 01:56 BUN 20 mg/dl (7-17) H 03/07/22 01:56 Creatinine 1.00 mg/dl (0.52-1.04) 03/07/22 01:56 Estimated Creat Clear 88 mL/min (50-200) 03/07/22 01:56 Was VTE Risk Assessment Performed: Yes VTE Risk Level: Low Risk - Prophylaxis VTE Prophylaxis Ordered?: Yes Types of VTE Prophylaxis: TEDS Knee High, Pharmacological Pharmacologic Type: Warfarin
[2022-03-08] VITALS (9 sets, daily range): BP systolic 118–136; BP diastolic 49–78; PULSE 68–121; RESP 16–20; TEMP 36.6–36.8; O2SAT 92–99
--- NOTE | 2022-03-08 05:18 | PC.NURSE ---
No acute episodes or changes thus far during my shift. Pt is on 2 L NC, pt states she wears 2 L NC PRN at home. IV infusing per order. Medicated per MAR for pain and anxiety this shift. Call light in reach. Explained to pt if she needs assistance or help with anything to call out. Pt verbalized understanding. No needs or complaints voiced at this time.
--- NOTE | 2022-03-08 07:24 | ECG_ITS ---
APPROVED REPORT Exam: Resting ECG HR:120 bpm ECG Measurements Heart Rate 120 AXES QRSd 118 QRS 86 QT 333 T 21 QTc 404 Conclusion ATRIAL FIBRILLATION WITH RAPID VENTRICULAR RESPONSE WITH ABERRANT CONDUCTION OR VENTRICULAR PREMATURE COMPLEXES INCOMPLETE RIGHT BUNDLE BRANCH BLOCK [90+ ms QRS DURATION, TERMINAL R IN V1/V2, 40+ ms S IN I/aVL/V4/V5/V6] ABNORMAL RHYTHM ECG UNCONFIRMED REPORT Electronically signed by : Reji Castro MD 03/09/2022 08:38:23
--- NOTE | 2022-03-08 07:24 | PC.NURSE ---
Called by prison warden, patient's heart rate up to 140's then will come down to 130's and back up. EKG requested to check rhythm
--- NOTE | 2022-03-08 07:47 | PC.NURSE ---
Dr. Castro paged and told of ekg results a fib with rvr. Patient not symptomatic and vitals stable. Dr. Castro ordered to give morning medication earlier and reevaluate
[2022-03-08 08:16] LABS: Basophils % 0.3 % (0.1-2.0); Eosinophils # 0.2 K/mm3 (0.0-0.4); Eosinophils % 1.3 % (0.1-12.0); Hematocrit 27.2 % (37.0-47.0); Hemoglobin 8.2 g/dL (12.2-16.2); Lymphocytes # 0.4 K/mm3 (0.7-4.5); Lymphocytes % 2.9 % (10-50); Mean Corpuscular Hemoglobin 24.1 pg (27.0-31.2); Mean Corpuscular Volume 80.2 fl (81-99); Mean Platelet Volume 8.6 fl (7.4-10.4); Monocytes # 0.4 K/mm3 (0.1-1.0); Monocytes % 3.2 % (1.7-9.3); Neutrophils # 12.7 K/mm3 (1.8-7.8); Neutrophils % 92.3 % (37.0-80.0); Platelet Count 313 K/mm3 (142-424); Red Blood Count 3.39 M/mm3 (4.20-5.40); Red Cell Distribution Width 21.9 % (11.5-17.5); White Blood Count 13.7 K/mm3 (4.8-10.8)
[2022-03-08 08:21] LABS: INR 3.67 (0.9-1.1); Prothrombin Time 37.7 seconds (10.1-12.5)
[2022-03-08 08:23] LABS: Chloride 98 mmol/L (98-107); Potassium 3.8 mmoL/L (3.5-5.1); Sodium 136 mmol/L (136-145)
[2022-03-08 08:26] LABS: Anion Gap 13.8 mEq/L (5-15); Blood Urea Nitrogen 25 mg/dl (7-17); Calcium 8.1 mg/dl (8.4-10.2); Carbon Dioxide 28 mmol/L (22.0-30.0); Creatinine Clearance Estimated 71 mL/min (50-200); Estimated Glomerular Filt Rate 42 ml/min (>60); GFR (African American) 51 ML/MIN (>60); Glucose 225 mg/dl (74-100); Magnesium 1.6 mg/dl (1.6-2.3)
[2022-03-08 08:33] LABS: MANUAL DIFFERENTIAL MANUAL DIFFERENTIAL (MANUAL DIFF)
--- NOTE | 2022-03-08 09:00 | HMH.ACPN2 ---
Internal Medicine - PN: Subj *Date: 03/08/22 *Time: 09:00 Interval history: Overnight patient feels a little bit better. No fevers. Was able to eat some cereal. Upper respiratory PCR negative. Culture from sputum has gram-positive diplococci and gram stain. Patient did have an episode of rapid A. fib this morning up in the 160s. We gave her metoprolol a little earlier than typical medication administration times for hospital rounds and she is now coming back down into the 90s. Exam Vital signs and Labs for Last 24 Hours: Temp Pulse Resp BP Pulse Ox 98.0 F 94 H 18 129/74 92 L 03/08/22 04:00 03/08/22 06:28 03/08/22 04:00 03/08/22 04:00 03/08/22 06:28 Laboratory Results - last 24 hr 03/07/22 09:23: Chlamy pneumoniae PCR Not detected, Adenovirus (PCR) Not detected, B. pertussis DNA (PCR) Not detected, Coronavirus OC43 (PCR) Not detected, Coronavirus HKU1 (PCR) Not detected, Coronavirus 229E (PCR) Not detected, Coronavirus NL63 (PCR) Not detected, Human Metapneumovir PCR Not detected, Influenza A (H1) PCR Not detected, Influ A (H1N1/09) PCR Not detected, Influenza A (H3) PCR Not detected, Influenza Type A (PCR) Not detected, Influenza Type B (PCR) Not detected, M. pneumoniae (PCR) Not detected, Parainfluenza 1 (PCR) Not detected, Parainfluenza 2 (PCR) Not detected, Parainfluenza 3 (PCR) Not detected, Parainfluenza 4 (PCR) Not detected, RSV (PCR) Not detected, Entero/Rhino (PCR) Not detected 03/08/22 07:50: PT 37.7 H, INR 3.67 H 03/08/22 07:50: WBC 13.7 H, RBC 3.39 L, Hgb 8.2 L, Hct 27.2 L, MCV 80.2 L, MCH 24.1 L, MCHC 30.0 L, RDW 21.9 H, Plt Count 313, MPV 8.6, Neut % (Auto) 92.3 H, Lymph % (Auto) 2.9 L, [place] % (Auto) 3.2, Eos % (Auto) 1.3, Baso % (Auto) 0.3, Neut # (Auto) 12.7 H, Lymph # (Auto) 0.4 L, [place] # (Auto) 0.4, Eos # (Auto) 0.2, Baso # (Auto) 0.0 03/08/22 07:50: Sodium 136, Potassium 3.8, Chloride 98, Carbon Dioxide 28, Anion Gap 13.8, BUN 25 H, Creatinine 1.30 H D, Estimated Creat Clear 71, Estimated GFR 42 L, Est GFR ( Amer) 51 L D, Glucose 225 H, Calcium 8.1 L, Magnesium 1.6 I & O for Last 24 hours: Intake & Output 03/05/22 03/06/22 03/07/22 03/08/22 11:59 11:59 11:59 11:59 Intake Total 721 / 721 1380 / 1380 Output Total 700 / 700 Balance 1380 / 1380 Weight 210 lb Microbiology Reports for the Last 24 Hours: Microbiology 03/07/22 09:20 Sputum - Expectorated Sputum Gram Stain - Final Narrative: Alert, oriented x3. Pleasant. Lungs have good air movement. Some rhonchi in the back lower lung cisneros. This is however improving. Very minimal expiratory wheezing. Heart rate irregular. Rate in the 90s. No edema or clubbing. Neurologically intact. Assessment and Plan (1) Acute exacerbation of chronic obstructive airways disease Status: Acute Category: Medical Code(s): J44.1 - Chronic obstructive pulmonary disease with (acute) exacerbation (2) Acute on chronic HFrEF (heart failure with reduced ejection fraction) Status: Acute Category: Medical Code(s): I50.23 - Acute on chronic systolic (congestive) heart failure (3) SIRS (systemic inflammatory response syndrome) Status: Acute Category: Medical Code(s): R65.10 - Systemic inflammatory response syndrome (SIRS) of non-infectious origin without acute organ dysfunction - Assessment and plan all Dx Assessment and Plan for all problems:: Overall improving. Change nebulizers from duo nebs to Xopenex to reduce heart rate pressure. Magnesium and calcium supplementation Continue antibiotics.
[2022-03-08 10:05] LABS: Eosinophils % 1 % (0-3); Lymphocytes % 4 % (10-50); Microcytosis 1+; Monocytes % 3 % (2-9); Neutrophils % 92 % (42-76); Platelet Estimate Normal; Total Cells Counted 100
[2022-03-08 10:06] LABS: Anisocytosis 1+; Hypochromasia 1+
--- NOTE | 2022-03-08 14:59 | ECG_ITS ---
APPROVED REPORT Exam: Resting ECG HR:112 bpm ECG Measurements Heart Rate 112 AXES QRSd 99 QRS 89 QT 339 T 32 QTc 406 Conclusion ATRIAL FIBRILLATION WITH RAPID VENTRICULAR RESPONSE INCOMPLETE RIGHT BUNDLE BRANCH BLOCK [90+ ms QRS DURATION, TERMINAL R IN V1/V2, 40+ ms S IN I/aVL/V4/V5/V6] NONSPECIFIC T-WAVE ABNORMALITY ABNORMAL RHYTHM ECG UNCONFIRMED REPORT Electronically signed by : Reji Castro MD 03/11/2022 10:14:57
[2022-03-09] VITALS (14 sets, daily range): BP systolic 124–142; BP diastolic 68–91; PULSE 90–120; RESP 17–22; TEMP 36.3–37; O2SAT 92–100; BMI 35.7
[2022-03-09 01:01] LABS: POC Glucose,Bedside 177 (70-110)
[2022-03-09 05:55] LABS: POC Glucose,Bedside 167 (70-110)
[2022-03-09 06:15] LABS: Basophils % 0.3 % (0.1-2.0); Eosinophils # 0.3 K/mm3 (0.0-0.4); Eosinophils % 2.5 % (0.1-12.0); Hemoglobin 8.1 g/dL (12.2-16.2); Lymphocytes # 0.3 K/mm3 (0.7-4.5); Lymphocytes % 2.9 % (10-50); Mean Corpuscular HGB Conc 29.8 g/dL (31.8-35.4); Mean Corpuscular Hemoglobin 23.7 pg (27.0-31.2); Mean Corpuscular Volume 79.7 fl (81-99); Mean Platelet Volume 8.1 fl (7.4-10.4); Monocytes # 0.5 K/mm3 (0.1-1.0); Monocytes % 3.9 % (1.7-9.3); Neutrophils # 10.8 K/mm3 (1.8-7.8); Neutrophils % 90.4 % (37.0-80.0); Platelet Count 314 K/mm3 (142-424); Red Blood Count 3.43 M/mm3 (4.20-5.40); White Blood Count 11.9 K/mm3 (4.8-10.8)
[2022-03-09 06:18] LABS: Hematocrit 27.3 % (37.0-47.0)
[2022-03-09 06:20] LABS: MANUAL DIFFERENTIAL MANUAL DIFFERENTIAL (MANUAL DIFF)
[2022-03-09 06:28] LABS: INR 3.99 (0.9-1.1); Prothrombin Time 40.7 seconds (10.1-12.5)
[2022-03-09 06:35] LABS: Anisocytosis 3+; Hypochromasia 2+; Lymphocytes % 4 % (10-50); Microcytosis 2+; Neutrophils % 91 % (42-76); Platelet Estimate Normal; Poikilocytosis 2+; Rouleaux 3+; Total Cells Counted 100
[2022-03-09 06:38] LABS: Chloride 95 mmol/L (98-107); Potassium 3.4 mmoL/L (3.5-5.1); Sodium 135 mmol/L (136-145)
[2022-03-09 06:40] LABS: Blood Urea Nitrogen 27 mg/dl (7-17); Creatinine Clearance Estimated 77 mL/min (50-200); Estimated Glomerular Filt Rate 46 ml/min (>60); GFR (African American) 56 ML/MIN (>60)
[2022-03-09 06:41] LABS: Alanine Aminotransferase 18 U/L (12-78); Albumin Level 3.9 g/dl (3.5-5.0); Albumin/Globulin Ratio 1.3 (1.1-1.8); Alkaline Phosphatase 86 U/L (38-126); Anion Gap 8.4 mEq/L (5-15); Aspartate Amino Transferase 24 U/L (14-36); Bilirubin,Total 1.2 mg/dl (0.2-1.3); Calcium 8.4 mg/dl (8.4-10.2); Carbon Dioxide 35 mmol/L (22.0-30.0); Globulin 2.9 g/dL (1.3-3.2); Glucose 158 mg/dl (74-100); Total Protein,Serum 6.8 g/dl (6.3-8.2)
--- NOTE | 2022-03-09 08:32 | HMH.ACPN2 ---
Internal Medicine - PN: Subj *Date: 03/09/22 *Time: 08:32 Interval history: Patient's labs, vital signs and pulse rate have all improved but she says she still feels rough. She reports that she feels rough because when she gets up and moves around she coughs and then becomes short of air. Exam Vital signs and Labs for Last 24 Hours: Temp Pulse Resp BP Pulse Ox 98.3 F 110 H 18 131/78 97 03/09/22 07:48 03/09/22 07:48 03/09/22 07:48 03/09/22 07:48 03/09/22 07:48 Laboratory Results - last 24 hr 03/08/22 07:50: PT 37.7 H, INR 3.67 H 03/08/22 07:50: Total Counted 100, Neutrophils % (Manual) 92 H, Lymphocytes % (Manual) 4 L, Monocytes % (Manual) 3, Eosinophils % (Manual) 1, Platelet Estimate Normal, Hypochromasia 1+, Anisocytosis 1+, Microcytosis 1+ 03/08/22 16:46: POC Glucose 177 H 03/09/22 05:13: POC Glucose 167 H 03/09/22 06:06: PT 40.7 H, INR 3.99 H 03/09/22 06:06: WBC 11.9 H, RBC 3.43 L, Hgb 8.1 L, Hct 27.3 L, MCV 79.7 L, MCH 23.7 L, MCHC 29.8 L, RDW 23.0 H, Plt Count 314, MPV 8.1, Neut % (Auto) 90.4 H, Lymph % (Auto) 2.9 L, [place] % (Auto) 3.9, Eos % (Auto) 2.5, Baso % (Auto) 0.3, Neut # (Auto) 10.8 H, Lymph # (Auto) 0.3 L, [place] # (Auto) 0.5, Eos # (Auto) 0.3, Baso # (Auto) 0.0, Total Counted 100, Neutrophils % (Manual) 91 H, Band Neutrophils % 5.0, Lymphocytes % (Manual) 4 L, Platelet Estimate Normal, Hypochromasia 2+, Poikilocytosis 2+, Anisocytosis 3+, Microcytosis 2+, Rouleaux 3+ 03/09/22 06:06: Sodium 135 L, Potassium 3.4 L, Chloride 95 L, Carbon Dioxide 35 H, Anion Gap 8.4, BUN 27 H, Creatinine 1.20 H, Estimated Creat Clear 77, Estimated GFR 46 L, Est GFR ( Amer) 56 L, Glucose 158 H D, Calcium 8.4, Total Bilirubin 1.2, AST 24 D, ALT 18, Alkaline Phosphatase 86, Total Protein 6.8, Albumin 3.9, Globulin 2.9, Albumin/Globulin Ratio 1.3 I & O for Last 24 hours: Intake & Output 03/06/22 03/07/22 03/08/22 03/09/22 11:59 11:59 11:59 11:59 Intake Total 721 / 721 1860 / 1860 1795 / 1795 Output Total 700 / 700 Balance 1860 / 1860 1795 / 1795 Weight 210 lb Microbiology Reports for the Last 24 Hours: Microbiology 03/07/22 01:30 Blood Blood Culture - Preliminary NO GROWTH AFTER 48 HOURS 03/07/22 01:30 Blood Blood Culture - Preliminary NO GROWTH AFTER 48 HOURS Narrative: Patient is alert, pleasant. Oriented x3. Does have scattered wheezing but her lung exam is vastly improved over yesterday. Heart rate irregular. Rate controlled. No edema, abdomen soft, neurologically intact, oropharynx clear. Assessment and Plan (1) Acute exacerbation of chronic obstructive airways disease Status: Acute Category: Medical Code(s): J44.1 - Chronic obstructive pulmonary disease with (acute) exacerbation (2) Acute on chronic HFrEF (heart failure with reduced ejection fraction) Status: Acute Category: Medical Code(s): I50.23 - Acute on chronic systolic (congestive) heart failure (3) SIRS (systemic inflammatory response syndrome) Status: Acute Category: Medical Code(s): R65.10 - Systemic inflammatory response syndrome (SIRS) of non-infectious origin without acute organ dysfunction - Assessment and plan all Dx Assessment and Plan for all problems:: Overall patient is improving. Continues to be tired. Seems to have responded well to Xopenex nebs with lower heart rates. Plan will be to continue current therapy. PT and OT today. I think once patient rebounds symptomatically she can be discharged tomorrow with appropriate antibiotics. Still awaiting final report from sputum culture as gram stain did show gram-positive diplococci.
--- NOTE | 2022-03-09 09:58 | HMH.OTEV ---
OT Inpatient Evaluation Rehab OT IP Evaluation Start: 03/09/22 08:31 Freq: ONCE Status: Complete Protocol: Document 03/09/22 09:51 STANISLAVOJAI (Rec: 03/09/22 09:58 [facility] [id number]) Rehab OT IP Assessment Subjective History Oriented x 3 on arrival. Pt agreeable to engage in therapy evaluation. Pt was admitted on 03/07/22 due to Cough/Fever. Pt reports prior to beign in the hospital pt lived at home alone. Pt claims she was independent with all ADLs and IADLs. She did not require any AE during abmulation. Pt also still drove and provided care for her sister. Pt did use o2 at home as needed. The following information was copied from history and physical report: 56-year-old white female with history of CHF, autoimmune anemia, chronic A. fib, frequent CHF and COPD exacerbations who came to the emergency department with fever that happened during the night, cough and congestion. In the ER was found to have slightly elevated white count, infiltrate on chest x-ray was admitted for evaluation of SIRS and pneumonia. Pt has a medical history of : Arrhythmia, Atrial Fibrillation, Cancer, Cardiomyopathy, Congestive Heart Failure, Chronic Obstructive Pulmonary Disease (COPD), Congenital Heart Disease, Coronary Artery Disease, Deep Vein Thrombosis, Diabetes Mellitus Type 2, Gastroesophageal Reflux Disease(GERD), Hyperlipidemia, Hypertension, Valvular Heart Disease Subjective I don't need help and I am ready to go home and rest. Pt completed bed mobility and rowena
[2022-03-09 11:44] LABS: POC Glucose,Bedside 232 (70-110)
--- NOTE | 2022-03-09 18:50 | PC.NURSE ---
PT REQUIRES 2LNC FOR O2 SUPPORT. SHE STILL DESATS WITH EXERTION. AHE HAS RESTED IN BED FOR MOST OF THE SHIFT. SHE DID C/O PAIN THIS AM WND WAS MEDICATED PER JAN WITH GOOD EFFECTIVENESS. SHE HAS REMOVED HER O2 S COUPLE OF TIMES THIS SHIFT AND SHE DROPS TO HIGH 70'S ON ROOM AIR BUT RECOVERS QUICKLY WHEN O2 IS REAPPLIED. SHE IS ABLE TO USE CALL LIGHT TO MAKE NEEDS KNOWN TO STAFF. X1 ASSIST TO BATHROOM FOR ELIMINATION.
[2022-03-09 20:51] LABS: POC Glucose,Bedside 231 (70-110)
[2022-03-10] VITALS (12 sets, daily range): BP systolic 119–147; BP diastolic 68–90; PULSE 70–116; RESP 16–24; TEMP 36.5–36.7; O2SAT 2–97
--- NOTE | 2022-03-10 05:26 | PC.NURSE ---
No acute changes. Pt removed nc 2x t/o night, sat lowering into upper 70s. Once reapplied, pt sat will rise back to normal 90-95% within a couple minutes. Pt remained asymptomatic. Pt c/o pain in shoulders 1x and anxiety 1x t/o night, administered PRN medication per MAR, pt stated favorable results. Call light within reach.
[2022-03-10 06:24] LABS: Basophils % 0.4 % (0.1-2.0); Eosinophils # 0.3 K/mm3 (0.0-0.4); Eosinophils % 3.2 % (0.1-12.0); Hematocrit 28.2 % (37.0-47.0); Hemoglobin 8.6 g/dL (12.2-16.2); Lymphocytes # 0.5 K/mm3 (0.7-4.5); Lymphocytes % 6.7 % (10-50); Mean Corpuscular HGB Conc 30.4 g/dL (31.8-35.4); Mean Corpuscular Hemoglobin 24.6 pg (27.0-31.2); Mean Platelet Volume 8.4 fl (7.4-10.4); Monocytes # 0.4 K/mm3 (0.1-1.0); Monocytes % 5.4 % (1.7-9.3); Neutrophils # 6.6 K/mm3 (1.8-7.8); Neutrophils % 84.2 % (37.0-80.0); Platelet Count 318 K/mm3 (142-424); Red Blood Count 3.48 M/mm3 (4.20-5.40); Red Cell Distribution Width 23.1 % (11.5-17.5); White Blood Count 7.9 K/mm3 (4.8-10.8)
[2022-03-10 06:29] LABS: Chloride 92 mmol/L (98-107); Sodium 136 mmol/L (136-145)
[2022-03-10 06:31] LABS: INR 3.55 (0.9-1.1); Prothrombin Time 36.5 seconds (10.1-12.5)
[2022-03-10 06:32] LABS: Blood Urea Nitrogen 33 mg/dl (7-17); Carbon Dioxide 37 mmol/L (22.0-30.0); Creatinine Clearance Estimated 84 mL/min (50-200); Estimated Glomerular Filt Rate 51 ml/min (>60); GFR (African American) 62 ML/MIN (>60); Glucose 147 mg/dl (74-100)
[2022-03-10 06:33] LABS: Calcium 8.4 mg/dl (8.4-10.2)
[2022-03-10 06:39] LABS: POC Glucose,Bedside 169 (70-110)
--- NOTE | 2022-03-10 08:43 | HMH.ACPN2 ---
Internal Medicine - PN: Subj *Date: 03/10/22 *Time: 08:43 Interval history: Patient continues to states she feels rough this morning. On 3 L nasal cannula continuous. Only uses oxygen as needed at home. Still having mildly productive cough. When ambulates, has rapid desaturations into the 70s. Remained afebrile overnight. Remains tachycardic, in A. fib with RVR. Poor appetite. No nausea, vomiting, diarrhea. Exam Vital signs and Labs for Last 24 Hours: Temp Pulse Resp BP Pulse Ox 97.9 F 106 H 18 125/79 97 03/10/22 07:28 03/10/22 07:28 03/10/22 07:28 03/10/22 07:28 03/10/22 07:28 Laboratory Results - last 24 hr 03/09/22 09:30: POC Glucose 232 H 03/09/22 20:35: POC Glucose 231 H 03/10/22 05:56: WBC 7.9 D, RBC 3.48 L, Hgb 8.6 L, Hct 28.2 L, MCV 81.0, MCH 24.6 L, MCHC 30.4 L, RDW 23.1 H, Plt Count 318, MPV 8.4, Neut % (Auto) 84.2 H, Lymph % (Auto) 6.7 L, [place] % (Auto) 5.4, Eos % (Auto) 3.2, Baso % (Auto) 0.4, Neut # (Auto) 6.6, Lymph # (Auto) 0.5 L, [place] # (Auto) 0.4, Eos # (Auto) 0.3, Baso # (Auto) 0.0 03/10/22 05:56: Sodium 136, Potassium 3.0 L, Chloride 92 L, Carbon Dioxide 37 H, Anion Gap 10.0, BUN 33 H, Creatinine 1.10 H, Estimated Creat Clear 84, Estimated GFR 51 L, Est GFR ( Amer) 62, Glucose 147 H, Calcium 8.4 03/10/22 05:56: PT 36.5 H, INR 3.55 H 03/10/22 06:00: POC Glucose 169 H I & O for Last 24 hours: Intake & Output 03/07/22 03/08/22 03/09/22 03/10/22 23:59 23:59 23:59 23:59 Intake Total 1201 / 1201 0 / 2220 2220 / 2220 1112 / 1112 Output Total 700 / 700 Balance 501 / 501 0 / 2220 0 / 2220 1112 / 1112 Weight 95.254 kg 95 kg Microbiology Reports for the Last 24 Hours: Microbiology 03/07/22 09:20 Sputum - Expectorated Sputum Gram Stain - Final 03/07/22 09:20 Sputum - Expectorated Sputum Sputum Culture - Preliminary Narrative: - Constitutional Mild distress, chronically ill-appearing - *Routine HEENT Exam Head: Present: normocephalic Eye: Present: EOMI, PERRL ENT: Present: mucous membranes moist - *Routine Neck Exam Present: supple. Absent: lymphadenopathy - *Routine Respiratory Exam Present: Minimal rhonchi that clear with cough, no appreciable wheeze or crackles - *Routine Cardiovascular Exam Present: Tachycardic, irregularly irregular, positive for murmur, gallop - *Routine Abdominal Exam Present: soft, normoactive bowel sounds. Absent: tenderness - *Routine Extremities Exam Absent: cyanosis, clubbing, edema - *Routine Skin Exam Present: warm. Absent: rash - *Routine Neurological Exam Present: alert, oriented X3 Assessment and Plan (1) Acute exacerbation of chronic obstructive airways disease Status: Acute Category: Medical Code(s): J44.1 - Chronic obstructive pulmonary disease with (acute) exacerbation (2) Acute on chronic HFrEF (heart failure with reduced ejection fraction) Status: Acute Category: Medical Code(s): I50.23 - Acute on chronic systolic (congestive) heart failure (3) SIRS (systemic inflammatory response syndrome) Status: Acute Category: Medical Code(s): R65.10 - Systemic inflammatory response syndrome (SIRS) of non-infectious origin without acute organ dysfunction (4) Atrial fibrillation with RVR Status: Acute Category: Medical Code(s): I48.91 - Unspecified atrial fibrillation (5) 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
[2022-03-11] VITALS: BP 136/70; PULSE 104; PULSE 74; RESP 22; TEMP 36.6; O2SAT 92
[2022-03-11 04:00] VITALS: BP 118/75; PULSE 90; PULSE 97; RESP 22; TEMP 36.6; O2SAT 95
[2022-03-11 06:05] VITALS: PULSE 90; O2SAT 94
[2022-03-11 07:15] LABS: Chloride 92 mmol/L (98-107); Sodium 138 mmol/L (136-145)
[2022-03-11 07:16] LABS: Potassium 3.9 mmoL/L (3.5-5.1)
[2022-03-11 07:18] LABS: Alanine Aminotransferase 17 U/L (12-78); Albumin Level 4.1 g/dl (3.5-5.0); Albumin/Globulin Ratio 1.4 (1.1-1.8); Alkaline Phosphatase 112 U/L (38-126); Aspartate Amino Transferase 24 U/L (14-36); Bilirubin,Total 0.9 mg/dl (0.2-1.3); Blood Urea Nitrogen 34 mg/dl (7-17); Calcium 8.5 mg/dl (8.4-10.2); Creatinine Clearance Estimated 66 mL/min (50-200); Estimated Glomerular Filt Rate 39 ml/min (>60); GFR (African American) 47 ML/MIN (>60); Glucose 156 mg/dl (74-100); Total Protein,Serum 7.1 g/dl (6.3-8.2)
[2022-03-11 07:19] LABS: Basophils # 0.1 K/mm3 (0-0.2); Basophils % 0.7 % (0.1-2.0); Eosinophils # 0.2 K/mm3 (0.0-0.4); Eosinophils % 2.9 % (0.1-12.0); Hematocrit 30.3 % (37.0-47.0); Hemoglobin 8.9 g/dL (12.2-16.2); Lymphocytes # 0.5 K/mm3 (0.7-4.5); Lymphocytes % 6.6 % (10-50); Mean Corpuscular HGB Conc 29.3 g/dL (31.8-35.4); Mean Corpuscular Hemoglobin 24.4 pg (27.0-31.2); Mean Corpuscular Volume 83.2 fl (81-99); Mean Platelet Volume 8.6 fl (7.4-10.4); Monocytes # 0.4 K/mm3 (0.1-1.0); Monocytes % 4.9 % (1.7-9.3); Neutrophils # 6.4 K/mm3 (1.8-7.8); Platelet Count 353 K/mm3 (142-424); Red Blood Count 3.64 M/mm3 (4.20-5.40); Red Cell Distribution Width 23.4 % (11.5-17.5); White Blood Count 7.6 K/mm3 (4.8-10.8)
[2022-03-11 07:22] LABS: MANUAL DIFFERENTIAL MANUAL DIFFERENTIAL (MANUAL DIFF)
[2022-03-11 07:25] LABS: Anion Gap 12.9 mEq/L (5-15); Carbon Dioxide 37 mmol/L (22.0-30.0)
[2022-03-11 07:27] LABS: INR 2.83 (0.9-1.1); Prothrombin Time 29.6 seconds (10.1-12.5)
[2022-03-11 08:00] VITALS: BP 133/88; PULSE 86; RESP 16; TEMP 36.6; O2SAT 100
--- NOTE | 2022-03-11 08:25 | HMH.DCSUM ---
General - General Admission date:: 03/07/22 Discharge date: 03/11/22 HPI HPI: 56-year-old white female with history of CHF, autoimmune anemia, chronic A. fib, frequent CHF and COPD exacerbations who came to the emergency department with fever that happened during the night, cough and congestion. In the ER was found to have slightly elevated white count, infiltrate on chest x-ray was admitted for evaluation of SIRS and pneumonia. Hospital Course Hospital Course: Patient was admitted, met SIRS requirements. Placed on ceftriaxone and azithromycin for community-acquired pneumonia. Interestingly, gram stain showed gram-positive diplococci but culture failed to grow any organisms. Upper respiratory PCR including COVID-19 and flu testing were negative for detectable organisms. Patient improved very slowly over the next 3 to 4 days, continue to have a lot of wheezing. Did well with nebs, had to be transferred to [facility] because of tachycardia. This morning she was almost back to her baseline. Eating well, drinking well, had passed physical therapy and Occupational Therapy home safety evaluations and will be discharged home. Plan will be to have her come back on Wednesday for iron infusions which were scheduled for today as an outpatient, we will also have her be seen in our office in 2 days to make sure she is improving on a stepwise fashion. Objective Vital signs: Temp Pulse Resp BP Pulse Ox 97.9 F 90 22 118/75 94 L 03/11/22 04:00 03/11/22 06:05 03/11/22 04:00 03/11/22 04:00 03/11/22 06:05 no acute distress - *Routine HEENT Exam Head: Present: normocephalic Eye: Present: EOMI, PERRL ENT: Present: mucous membranes moist - *Routine Neck Exam Present: supple - *Routine Respiratory Exam Present: CTA bilaterally, wheezes Comments: Nice improved air movement. - *Routine Cardiovascular Exam Present: RRR - *Routine Abdominal Exam Present: soft, normoactive bowel sounds. Absent: tenderness - *Routine Extremities Exam Absent: cyanosis, clubbing, edema - *Routine Skin Exam Present: warm. Absent: rash - Detailed Eye Exam Eyelids: Bilateral normal inspection Results Labs on day of discharge: Labs from last 24 hours 03/11/22 03/11/22 03/11/22 06:40 06:40 06:40 WBC 7.6 RBC 3.64 L Hgb 8.9 L Hct 30.3 L MCV 83.2 MCH 24.4 L MCHC 29.3 L RDW 23.4 H Plt Count 353 MPV 8.6 Neut % (Auto) 85.0 H Lymph % (Auto) 6.6 L [place] % (Auto) 4.9 Eos % (Auto) 2.9 Baso % (Auto) 0.7 Neut # (Auto) 6.4 Lymph # (Auto) 0.5 L [place] # (Auto) 0.4 Eos # (Auto) 0.2 Baso # (Auto) 0.1 PT 29.6 H INR 2.83 H Sodium 138 Potassium 3.9 D Chloride 92 L Carbon Dioxide 37 H Anion Gap 12.9 BUN 34 H Creatinine 1.40 H D Estimated Creat Clear 66 Estimated GFR 39 L Est GFR ( Amer) 47 L D Glucose 156 H Calcium 8.5 Magnesium 2.0 D Total Bilirubin 0.9 AST 24 ALT 17 Alkaline Phosphatase 112 Total Protein 7.1 Albumin 4.1 Globulin 3.0 Albumin/Globulin Ratio 1.4 Preliminary micro results at discharge 03/07/22 09:20 Sputum Culture - Preliminary Sputum - Expectorated Sputum 03/07/22 01:30 Blood Culture - Preliminary Blood NO GROWTH AFTER 48 HOURS 03/07/22 01:30 Blood Culture - Preliminary Blood NO GROWTH AFTER 48 HOURS DS: Diagnosis - Discharge Diagnosis (1) Acute exacerbation of chronic obstructive airways disease Status: Acute (2) Acute on chronic HFrEF (heart failure with reduced ejection fraction) Status: Acute (3) SIRS (systemic inflammatory response syndrome) Status: Acute (4) Atrial fibrillation with RVR Status: Acute (5) assisted current use of anticoagulants with INR goal of 2.5-3.5 Status: Chronic (6) CKD (chronic kidney disease) stage 3, GFR 30-59 ml/min Status: Chronic (7) Class 1 obesity Status: Chron
--- NOTE | 2022-03-11 08:48 | PC.NURSE ---
Patient spoke to who stated it may be an hour to an hour and a half before he can pick the patient up.
--- NOTE | 2022-03-11 09:01 | P.PN_ITS ---
Internal Medicine - PN: Subj *Date: 03/11/22 *Time: 09:01 Exam Vital signs and Labs for Last 24 Hours: Temp Pulse Resp BP Pulse Ox 97.9 F 90 22 118/75 94 L 03/11/22 04:00 03/11/22 06:05 03/11/22 04:00 03/11/22 04:00 03/11/22 06:05 Laboratory Results - last 24 hr 03/11/22 06:40: WBC 7.6, RBC 3.64 L, Hgb 8.9 L, Hct 30.3 L, MCV 83.2, MCH 24.4 L , MCHC 29.3 L, RDW 23.4 H, Plt Count 353, MPV 8.6, Neut % (Auto) 85.0 H, Lymph % (Auto) 6.6 L, [place] % (Auto) 4.9, Eos % (Auto) 2.9, Baso % (Auto) 0.7, Neut # (Auto) 6.4, Lymph # (Auto) 0.5 L, [place] # (Auto) 0.4, Eos # (Auto) 0.2, Baso # (Auto) 0.1 03/11/22 06:40: Sodium 138, Potassium 3.9 D, Chloride 92 L, Carbon Dioxide 37 H , Anion Gap 12.9, BUN 34 H, Creatinine 1.40 H D, Estimated Creat Clear 66, Estimated GFR 39 L, Est GFR ( Amer) 47 L D, Glucose 156 H, Calcium 8.5, Magnesium 2.0 D, Total Bilirubin 0.9, AST 24, ALT 17, Alkaline Phosphatase 112, Total Protein 7.1, Albumin 4.1, Globulin 3.0, Albumin/Globulin Ratio 1.4 03/11/22 06:40: PT 29.6 H, INR 2.83 H I & O for Last 24 hours: Intake & Output 03/08/22 03/09/22 03/10/22 03/11/22 23:59 23:59 23:59 23:59 Intake Total 2219 / 2219 Output Total 250 / 250 Balance 2220 / 2220 2220 / 2220 1832 1831 -250 / -250 Weight 95 kg Assessment and Plan (1) Acute exacerbation of chronic obstructive airways disease Status: Acute Category: Medical Code(s): J44.1 - Chronic obstructive pulmonary disease with (acute) exacerbation (2) Acute on chronic HFrEF (heart failure with reduced ejection fraction) Status: Acute Category: Medical Code(s): I50.23 - Acute on chronic systolic (congestive) heart failure (3) SIRS (systemic inflammatory response syndrome) Status: Acute Category: Medical Code(s): R65.10 - Systemic inflammatory response syndrome (SIRS) of non-infectious origin without acute organ dysfunction (4) Atrial fibrillation with RVR Status: Acute Category: Medical Code(s): I48.91 - Unspecified atrial fibrillation (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 with INR goal of 2.5-3.5 Status: Chronic Category: Medical Code(s): Z79.01 - department secretary (current) use of anticoagulants (6) CKD (chronic kidney disease) stage 3, GFR 30-59 ml/min Status: Chronic Qualifiers: Chronic kidney disease stage 3 subtype: stage 3a (GFR 45-59) Qualified Code(s): N18.31 - Chronic kidney disease, stage 3a Category: Medical Code(s): N18.30 - Chronic kidney disease, stage 3 unspecified (7) Class 1 obesity Status: Chronic Category: Medical Code(s): E66.9 - Obesity, unspecified (8) History of mitral valve replacement with mechanical valve Status: Chronic Category: Surgical Code(s): Z95.2 - Presence of prosthetic heart valve The patient's infection will respond to the chosen ABx?: Yes (BLOOD NO GROWTH, SPUTUM RARE GRAM POSITIVE COCCI) Is the patient receiving the right drug, dose, and route?: Yes Could a more targeted ABx be ordered?: No
[2022-03-11 09:05] LABS: Eosinophils % 4 % (0-3); Lymphocytes % 2 % (10-50); Monocytes % 7 % (2-9); Neutrophils % 87 % (42-76); Nucleated Red Blood Cells 2; Platelet Estimate Normal; Total Cells Counted 100
[2022-03-11 09:06] LABS: Hypochromasia 1+; Microcytosis 1+; Ovalocytes 1+; Poikilocytosis 2+; Tear Drop Cells 1+
--- NOTE | 2022-03-11 09:46 | HMH.PHAINT ---
I spoke with the patient today about their medication list. Went over the new medications being sent in for the patient, and the medications she was to continue at home. Some of the new medications interacted with her warfarin (that we manage) so I instructed the patient to call us tomorrow to arrange an INR check if needed. When we spoke, the patient did not have any questions or concerns. The patient was provided a copy of the medication list.
--- NOTE | 2022-03-11 09:55 | CARE MANAGER ---
Addendum entered by Lisa Tian RN 03/11/22 10:40: Katina at the [facility] office in [place] will order the patient a glucometer. Original Note: Patient information faxed to [facility] for patient to receive nebulizer machine. Patient already has Oxygen at home. JEREMIAH Hillman
--- NOTE | 2022-03-12 14:42 | CARE MANAGER ---
Patient states she has picked up her prescriptions and nebulizer medications but has not received her nebulizer machine as of . She states Ellie states they will bring it today. She has follow up appt. with Dr. Herbert tomorrow. She was supposed to have an iron infusion tomorrow as well, but they rescheduled to Wednesday. She denies any questions or concerns. JEREMIAH Hillman
[2022-03-12 20:33] LABS: POC Glucose,Bedside 206 (70-110)
[2022-03-12 20:33] LABS: POC Glucose,Bedside 175 (70-110)
[2022-03-12 20:33] LABS: POC Glucose,Bedside 173 (70-110)
[2022-03-12 20:33] LABS: POC Glucose,Bedside 144 (70-110)
== END 2022-03-11 10:10 | disposition home or self-care (01) | DRG 190 ==
LOC: ER 04:38 → 2ND 03-08 00:47
PROVIDERS: Admitting Provider Internal Medicine Adolescent Medicine; Emergency Provider Emergency Medicine; PCP Internal Medicine Adolescent Medicine; Visit Provider Internal Medicine Adolescent Medicine
DX: J44.1 Chronic obstructive pulmonary disease with (acute) exacerbation (principal); I50.23 Acute on chronic systolic (congestive) heart failure; I48.20 Chronic atrial fibrillation, unspecified; Z20.822 Contact with and (suspected) exposure to COVID-19; I11.0 Hypertensive heart disease with heart failure; Z95.2 Presence of prosthetic heart valve; Z86.718 Personal history of other venous thrombosis and embolism; E11.9 Type 2 diabetes mellitus without complications; K21.9 Gastro-esophageal reflux disease without esophagitis; Z87.891 Personal history of nicotine dependence; Z79.01 Long term (current) use of anticoagulants; E78.5 Hyperlipidemia, unspecified; I25.10 Atherosclerotic heart disease of native coronary artery without angina pectoris; E03.9 Hypothyroidism, unspecified; Z99.81 Dependence on supplemental oxygen; Z79.4 Long term (current) use of insulin
CPT/HCPCS: 36415; 71045; 80048; 80053; 82803; 82962; 83605; 83735; 83880; 84145; 84484; 85007; 85025; 85610; 85651; 86140; 87040; 87070; 87205; 87486; 87581; 87632; 87798; 93005; 94640; 94761; 96365; 96367; 96375; 97161; 97166; 99285; C9803; J0456; J0696; J1439; J1642; J3475; U0003; U0005

== ENCOUNTER 2022-03-16 09:16 | Outpatient (CLI) | payer MEDICARE, MEDICAID, SELFPAY ==
[2022-03-16 09:32] VITALS: BMI 34.9
[2022-03-16 09:55] LABS: Basophils % 0.5 % (0.1-2.0); Chloride 92 mmol/L (98-107); Eosinophils # 0.2 K/mm3 (0.0-0.4); Eosinophils % 3.8 % (0.1-12.0); Hematocrit 30.9 % (37.0-47.0); Hemoglobin 9.1 g/dL (12.2-16.2); Lymphocytes # 0.4 K/mm3 (0.7-4.5); Lymphocytes % 7.6 % (10-50); Mean Corpuscular HGB Conc 29.3 g/dL (31.8-35.4); Mean Corpuscular Volume 81.9 fl (81-99); Mean Platelet Volume 8.2 fl (7.4-10.4); Monocytes # 0.3 K/mm3 (0.1-1.0); Neutrophils # 4.8 K/mm3 (1.8-7.8); Neutrophils % 83.2 % (37.0-80.0); Platelet Count 280 K/mm3 (142-424); Potassium 3.4 mmoL/L (3.5-5.1); Red Blood Count 3.78 M/mm3 (4.20-5.40); Red Cell Distribution Width 22.4 % (11.5-17.5); Sodium 136 mmol/L (136-145); White Blood Count 5.8 K/mm3 (4.8-10.8)
[2022-03-16 09:57] LABS: Blood Urea Nitrogen 33 mg/dl (7-17); Creatinine Clearance Estimated 71 mL/min (50-200); Estimated Glomerular Filt Rate 42 ml/min (>60); GFR (African American) 51 ML/MIN (>60)
[2022-03-16 09:58] LABS: Alanine Aminotransferase 19 U/L (12-78); Albumin/Globulin Ratio 1.4 (1.1-1.8); Alkaline Phosphatase 92 U/L (38-126); Anion Gap 12.4 mEq/L (5-15); Aspartate Amino Transferase 28 U/L (14-36); Bilirubin,Total 0.9 mg/dl (0.2-1.3); Calcium 9.2 mg/dl (8.4-10.2); Carbon Dioxide 35 mmol/L (22.0-30.0); Globulin 2.8 g/dL (1.3-3.2); Glucose 206 mg/dl (74-100); Total Protein,Serum 6.8 g/dl (6.3-8.2)
[2022-03-16 10:40] VITALS: BP 117/68; PULSE 74; RESP 18; TEMP 36.4; O2SAT 97
[2022-03-16 11:15] VITALS: BP 127/72; PULSE 84; RESP 16; O2SAT 93
== END 2022-03-16 11:30 | disposition home or self-care (01) ==
LOC: INF 09:17
PROVIDERS: PCP Internal Medicine Adolescent Medicine; Visit Provider Internal Medicine Medical Oncology
DX: D50.9 Iron deficiency anemia, unspecified (principal); D64.9 Anemia, unspecified
CPT/HCPCS: 80053; 85025; 96365; J1439; J1642

== ENCOUNTER 2022-03-24 09:05 | Outpatient (CLI) | payer MEDICARE, MEDICAID, SELFPAY ==
[2022-03-24 09:10] VITALS: BMI 33.5
[2022-03-24 09:31] LABS: Basophils % 0.6 % (0.1-2.0); Eosinophils # 0.2 K/mm3 (0.0-0.4); Hemoglobin 9.8 g/dL (12.2-16.2); Lymphocytes # 0.4 K/mm3 (0.7-4.5); Lymphocytes % 6.5 % (10-50); Mean Corpuscular HGB Conc 30.5 g/dL (31.8-35.4); Mean Corpuscular Hemoglobin 25.8 pg (27.0-31.2); Mean Corpuscular Volume 84.4 fl (81-99); Mean Platelet Volume 8.7 fl (7.4-10.4); Monocytes # 0.3 K/mm3 (0.1-1.0); Neutrophils # 4.8 K/mm3 (1.8-7.8); Platelet Count 257 K/mm3 (142-424); Red Blood Count 3.79 M/mm3 (4.20-5.40); White Blood Count 5.6 K/mm3 (4.8-10.8)
[2022-03-24 09:32] LABS: MANUAL DIFFERENTIAL MANUAL DIFFERENTIAL (MANUAL DIFF); Red Cell Distribution Width 25.1 % (11.5-17.5)
--- NOTE | 2022-03-24 09:42 | PC.NURSE ---
port accessed and saline flushed, blood return present. CBC drawn from port. port saline and heparin flushed and deaccessed.
[2022-03-24 09:54] LABS: Anisocytosis 1+; Hypochromasia 1+; Lymphocytes % 9 % (10-50); Macrocytosis 1+; Microcytosis 1+; Monocytes % 3 % (2-9); Neutrophils % 88 % (42-76); Platelet Estimate Normal; Total Cells Counted 100
== END 2022-03-24 09:43 | disposition home or self-care (01) ==
LOC: INF 09:06
PROVIDERS: PCP Internal Medicine Adolescent Medicine; Visit Provider Internal Medicine Medical Oncology
DX: D50.9 Iron deficiency anemia, unspecified (principal); Z45.2 Encounter for adjustment and management of vascular access device
CPT/HCPCS: 85007; 85025; J1642

== ENCOUNTER 2022-03-31 09:22 | Outpatient (CLI) | payer MEDICARE, MEDICAID, SELFPAY ==
[2022-03-31 09:27] VITALS: BMI 33.5
[2022-03-31 09:51] LABS: Basophils # 0.1 K/mm3 (0-0.2); Eosinophils # 0.3 K/mm3 (0.0-0.4); Eosinophils % 5.6 % (0.1-12.0); Hemoglobin 10.5 g/dL (12.2-16.2); Lymphocytes # 0.4 K/mm3 (0.7-4.5); Lymphocytes % 7.3 % (10-50); Mean Corpuscular Hemoglobin 26.5 pg (27.0-31.2); Mean Corpuscular Volume 85.5 fl (81-99); Mean Platelet Volume 8.7 fl (7.4-10.4); Monocytes # 0.3 K/mm3 (0.1-1.0); Monocytes % 5.8 % (1.7-9.3); Neutrophils # 4.6 K/mm3 (1.8-7.8); Neutrophils % 80.3 % (37.0-80.0); Platelet Count 229 K/mm3 (142-424); Red Blood Count 3.97 M/mm3 (4.20-5.40); Red Cell Distribution Width 24.5 % (11.5-17.5); White Blood Count 5.8 K/mm3 (4.8-10.8)
--- NOTE | 2022-03-31 10:10 | PC.NURSE ---
1010-pt does not need blood today hgb 10.5 today. pt will return next week for repeat lab draw.
[2022-03-31 10:20] LABS: Iron 84 ug/dL (37-170)
[2022-03-31 10:39] LABS: Total Iron Binding Capacity 420 ug/dL (265-497)
[2022-03-31 10:55] LABS: Ferritin 173 ng/ml (11.1-264)
== END 2022-03-31 10:13 | disposition home or self-care (01) ==
LOC: INF 09:23
PROVIDERS: PCP Internal Medicine Adolescent Medicine; Visit Provider Internal Medicine Medical Oncology
DX: D64.9 Anemia, unspecified (principal); Z45.2 Encounter for adjustment and management of vascular access device
CPT/HCPCS: 36591; 82728; 83540; 83550; 85025; J1642

== ENCOUNTER 2022-04-07 09:00 | Outpatient (CLI) | payer MEDICARE, MEDICAID, SELFPAY ==
[2022-04-07 09:25] VITALS: BMI 33.5
[2022-04-07 09:43] LABS: Basophils # 0.1 K/mm3 (0-0.2); Basophils % 0.7 % (0.1-2.0); Eosinophils # 0.2 K/mm3 (0.0-0.4); Eosinophils % 3.5 % (0.1-12.0); Hematocrit 33.2 % (37.0-47.0); Hemoglobin 10.6 g/dL (12.2-16.2); Lymphocytes # 0.3 K/mm3 (0.7-4.5); Mean Corpuscular Hemoglobin 27.1 pg (27.0-31.2); Mean Corpuscular Volume 84.7 fl (81-99); Mean Platelet Volume 8.7 fl (7.4-10.4); Monocytes # 0.3 K/mm3 (0.1-1.0); Monocytes % 4.3 % (1.7-9.3); Neutrophils # 5.9 K/mm3 (1.8-7.8); Neutrophils % 86.6 % (37.0-80.0); Platelet Count 196 K/mm3 (142-424); Red Blood Count 3.92 M/mm3 (4.20-5.40); Red Cell Distribution Width 23.4 % (11.5-17.5); White Blood Count 6.8 K/mm3 (4.8-10.8)
[2022-04-07 09:44] LABS: MANUAL DIFFERENTIAL MANUAL DIFFERENTIAL (MANUAL DIFF)
[2022-04-07 09:52] LABS: INR 1.96 (0.9-1.1); Prothrombin Time 21.1 seconds (10.1-12.5)
[2022-04-07 10:07] LABS: Eosinophils % 4 % (0-3); Lymphocytes % 3 % (10-50); Monocytes % 7 % (2-9); Neutrophils % 86 % (42-76); Total Cells Counted 100
[2022-04-07 10:08] LABS: Anisocytosis 1+; Hypochromasia 1+; Platelet Estimate Normal
[2022-04-07 10:09] LABS: Microcytosis 1+; Ovalocytes 1+; Poikilocytosis 1+
--- NOTE | 2022-04-07 11:39 | XR_ITS ---
FINAL REPORT CLINICAL HISTORY: RIGHT FOOT PAIN x's 6 days FINDINGS: RIGHT FOOT: Three views of the right foot were obtained. There is no acute fracture or dislocation. The joint spaces are intact. There is a small plantar calcaneal spur. There is no soft tissue abnormality. IMPRESSION: No acute bony abnormality. Reviewed, Interpreted and Dictated by Pravin Crespo III, MD Transcribed by Purvi Wang Authenticated by Pravin Crespo III, MD on 04/07/2022 01:06:20 PM [facility]
[2022-04-07 13:01] LABS: Alanine Aminotransferase 18 U/L (12-78); Albumin Level 4.5 g/dl (3.5-5.0); Albumin/Globulin Ratio 1.5 (1.1-1.8); Alkaline Phosphatase 109 U/L (38-126); Anion Gap 9.5 mEq/L (5-15); Aspartate Amino Transferase 28 U/L (14-36); Bilirubin,Total 0.7 mg/dl (0.2-1.3); Blood Urea Nitrogen 30 mg/dl (7-17); Calcium 9.9 mg/dl (8.4-10.2); Carbon Dioxide 35 mmol/L (22.0-30.0); Chloride 96 mmol/L (98-107); Creatinine Clearance Estimated 77 mL/min (50-200); Estimated Glomerular Filt Rate 51 ml/min (>60); GFR (African American) 62 ML/MIN (>60); Glucose 79 mg/dl (74-100); Potassium 3.5 mmoL/L (3.5-5.1); Sodium 137 mmol/L (136-145); Total Protein,Serum 7.5 g/dl (6.3-8.2); Uric Acid 7.4 mg/dl (2.5-6.2)
== END 2022-04-07 12:05 | disposition home or self-care (01) ==
PROVIDERS: PCP Internal Medicine Adolescent Medicine; Visit Provider Internal Medicine Medical Oncology
DX: D59.19 Other autoimmune hemolytic anemia (principal); M10.9 Gout, unspecified; M79.671 Pain in right foot; Z51.81 Encounter for therapeutic drug level monitoring; Z79.01 Long term (current) use of anticoagulants
CPT/HCPCS: 36591; 73630; 80053; 84550; 85007; 85025; 85610; J1642

== ENCOUNTER → 2022-04-14 07:41 | Outpatient (CLI) | payer MEDICARE, MEDICAID, SELFPAY ==
--- NOTE | 2022-04-14 | XR_ITS ---
FINAL REPORT CLINICAL HISTORY: HYPO-OSMOLALITY..HYPONATREMIA..VIT D DEFICIENCY..to go along with bone scan COMPARISON: March 07, 2022 FINDINGS: PA and lateral views of the chest were obtained. There has been sternotomy. There is no change in a right chest Port-A-Cath. Cardiomegaly is stable. The previous bibasilar opacities have resolved. There is no pleural effusion or pneumothorax. No acute osseous abnormality is identified. IMPRESSION: No radiographic evidence of acute cardiac or pulmonary disease. Reviewed, Interpreted and Dictated by Chitra Velasquez MD Transcribed by Luciano Soriano Authenticated by Chitra Velasquez MD on 04/14/2022 01:19:41 PM [facility]
--- NOTE | 2022-04-14 07:45 | NM_ITS ---
FINAL REPORT CLINICAL HISTORY: VITAMIN D DEFICIENCY,HTN,CKD STAGE 3 hypo-osmoslity...hypokalemia 8:00 am 26.5 mci tc MDP FINDINGS: EXISTING RELEVANT IMAGING STUDIES: CHEST X-RAY FROM THE SAME DAY TECHNIQUE: The patient was injected with 26.5 mCi of technetium 99-MDP. 3 hour delayed images were obtained. FINDINGS: There are foci of abnormal radiotracer uptake in an anterior left rib. There is less prominent uptake in several right anterior ribs. These could be related to fractures. Malignancy is felt less likely. There is radiotracer uptake in the shoulders and feet bilaterally favored to be degenerative. There is radiotracer uptake in the left greater than right proximal tibial cortices that could be related to metabolic disorder. Malignancy is felt less likely. Consider correlation with plain films. IMPRESSION: Abnormal uptake in the bilateral ribs that could be related to fractures. Abnormal uptake in the bilateral tibias could be related to a metabolic disorder. Malignancy is felt less likely. Recommend correlation with plain radiographs. Reviewed, Interpreted and Dictated by Chitra Velasquez MD Transcribed by Luciano Soriano Authenticated by Chitra Velasquez MD on 04/14/2022 01:20:29 PM [facility]
[2022-04-14 10:47] LABS: Microscopic, Urine URINE MICROSCOPIC (MICROSCOPIC)
[2022-04-14 11:21] LABS: Hematocrit 32.8 % (37.0-47.0); Hemoglobin 10.1 g/dL (12.2-16.2); Mean Corpuscular HGB Conc 30.7 g/dL (31.8-35.4); Mean Corpuscular Hemoglobin 26.6 pg (27.0-31.2); Mean Corpuscular Volume 86.7 fl (81-99); Platelet Count 217 K/mm3 (142-424); Red Blood Count 3.78 M/mm3 (4.20-5.40); Red Cell Distribution Width 22.7 % (11.5-17.5); White Blood Count 6.3 K/mm3 (4.8-10.8)
[2022-04-14 11:44] LABS: Appearance,Urine CLEAR (Clear); Bilirubin,Urine Negative (Negative); Blood, Urine Negative (Negative); Color,Urine YELLOW (Yellow); Glucose,Urine (UA) Negative (Negative); Ketones,Urine Negative (Negative); Leukocyte Esterase,Urine Negative (Negative); Nitrate,Urine Negative (Negative); Protein,Urine Negative (Negative); Urobilinogen,Urine 0.2 EU/dl (0.2)
[2022-04-14 11:49] LABS: Chloride 100 mmol/L (98-107); Potassium 4.5 mmoL/L (3.5-5.1); Sodium 138 mmol/L (136-145)
[2022-04-14 11:51] LABS: Alanine Aminotransferase 19 U/L (12-78); Aspartate Amino Transferase 29 U/L (14-36); Blood Urea Nitrogen 24 mg/dl (7-17); Estimated Glomerular Filt Rate 57 ml/min (>60); GFR (African American) 69 ML/MIN (>60)
[2022-04-14 11:52] LABS: Albumin Level 4.4 g/dl (3.5-5.0); Albumin/Globulin Ratio 1.6 (1.1-1.8); Alkaline Phosphatase 119 U/L (38-126); Anion Gap 11.5 mEq/L (5-15); Bilirubin,Total 0.8 mg/dl (0.2-1.3); Calcium 9.6 mg/dl (8.4-10.2); Carbon Dioxide 31 mmol/L (22.0-30.0); Globulin 2.7 g/dL (1.3-3.2); Glucose 171 mg/dl (74-100); Total Protein,Serum 7.1 g/dl (6.3-8.2)
[2022-04-14 12:01] LABS: Bacteria,Urine 1+ /lpf; RBC,Urine Occasional #/hpf (0-3)
[2022-04-14 12:25] LABS: Uric Acid 5.2 mg/dl (2.5-6.2)
[2022-04-14 12:34] LABS: Hemoglobin A1C 6.4 % (4.0-6.0)
== END ==
PROVIDERS: PCP Internal Medicine Adolescent Medicine; Visit Provider Internal Medicine Nephrology
DX: N17.9 Acute kidney failure, unspecified (principal); E11.22 Type 2 diabetes mellitus with diabetic chronic kidney disease
CPT/HCPCS: 36415; 71046; 78306; 80053; 81001; 83036; 84550; 85014; 85018; 85048; 85049; A9503

== ENCOUNTER 2022-04-14 07:59 | Outpatient (CLI) | payer MEDICARE, MEDICAID, SELFPAY ==
[2022-04-14 08:10] VITALS: BMI 33.5
[2022-04-14 08:35] LABS: Basophils # 0.1 K/mm3 (0-0.2); Eosinophils # 0.3 K/mm3 (0.0-0.4); Eosinophils % 4.4 % (0.1-12.0); Hematocrit 31.9 % (37.0-47.0); Lymphocytes # 0.4 K/mm3 (0.7-4.5); Lymphocytes % 6.9 % (10-50); Mean Corpuscular HGB Conc 31.4 g/dL (31.8-35.4); Mean Corpuscular Volume 86.1 fl (81-99); Mean Platelet Volume 8.3 fl (7.4-10.4); Monocytes # 0.3 K/mm3 (0.1-1.0); Monocytes % 4.7 % (1.7-9.3); Neutrophils % 83.1 % (37.0-80.0); Platelet Count 211 K/mm3 (142-424); Red Cell Distribution Width 22.4 % (11.5-17.5)
[2022-04-14 08:49] LABS: INR 3.11 (0.9-1.1); Prothrombin Time 32.3 seconds (10.1-12.5)
== END 2022-04-14 08:40 | disposition home or self-care (01) ==
LOC: INF 08:00
PROVIDERS: PCP Internal Medicine Adolescent Medicine; Visit Provider Internal Medicine Medical Oncology
DX: I50.9 Heart failure, unspecified (principal); I07.1 Rheumatic tricuspid insufficiency; Z79.899 Other long term (current) drug therapy; Z51.81 Encounter for therapeutic drug level monitoring; Z79.01 Long term (current) use of anticoagulants
CPT/HCPCS: 36415; 36591; 71046; 78306; 80053; 81001; 83036; 84550; 85014; 85018; 85025; 85048; 85049; 85610; A9503; J1642

== ENCOUNTER → 2022-04-17 14:41 | Outpatient (POV) | payer MEDICARE, MEDICAID, SELFPAY | PROVIDERS: Visit Provider Internal Medicine Nephrology | DX: Z00.00 Encounter for general adult medical examination without abnormal findings (principal) ==

== ENCOUNTER 2022-04-24 09:08 | Outpatient (CLI) | payer MEDICARE, MEDICAID, SELFPAY ==
[2022-04-24 09:13] VITALS: BMI 33.3
[2022-04-24 09:45] LABS: Basophils # 0.1 K/mm3 (0-0.2); Eosinophils # 0.3 K/mm3 (0.0-0.4); Eosinophils % 4.3 % (0.1-12.0); Hematocrit 30.4 % (37.0-47.0); Hemoglobin 9.5 g/dL (12.2-16.2); Lymphocytes # 0.4 K/mm3 (0.7-4.5); Lymphocytes % 6.3 % (10-50); Mean Corpuscular HGB Conc 31.2 g/dL (31.8-35.4); Mean Corpuscular Hemoglobin 26.7 pg (27.0-31.2); Mean Corpuscular Volume 85.6 fl (81-99); Mean Platelet Volume 8.3 fl (7.4-10.4); Monocytes # 0.3 K/mm3 (0.1-1.0); Monocytes % 4.9 % (1.7-9.3); Neutrophils # 5.2 K/mm3 (1.8-7.8); Neutrophils % 83.7 % (37.0-80.0); Platelet Count 241 K/mm3 (142-424); Red Blood Count 3.55 M/mm3 (4.20-5.40); White Blood Count 6.3 K/mm3 (4.8-10.8)
[2022-04-24 09:52] LABS: Chloride 96 mmol/L (98-107); Potassium 3.6 mmoL/L (3.5-5.1); Sodium 137 mmol/L (136-145)
[2022-04-24 09:54] LABS: Blood Urea Nitrogen 29 mg/dl (7-17); Creatinine Clearance Estimated 70 mL/min (50-200); Estimated Glomerular Filt Rate 46 ml/min (>60); GFR (African American) 56 ML/MIN (>60)
[2022-04-24 09:55] LABS: Alanine Aminotransferase 18 U/L (12-78); Albumin Level 4.5 g/dl (3.5-5.0); Alkaline Phosphatase 112 U/L (38-126); Anion Gap 9.6 mEq/L (5-15); Aspartate Amino Transferase 26 U/L (14-36); Bilirubin,Direct 0.3 mg/dl (0.0-0.4); Bilirubin,Indirect 0.5 mg/dL (0.0-0.9); Bilirubin,Total 0.8 mg/dl (0.2-1.3); Bilirubin,Unconjugated 0.5 mg/dL (0.0-1.1); Calcium 9.7 mg/dl (8.4-10.2); Carbon Dioxide 35 mmol/L (22.0-30.0); Chol/HDL Ratio 7.1 (1-3.5); Cholesterol 164 mg/dl (140-200); Glucose 162 mg/dl (74-100); HDL Cholesterol 23 mg/dl (40-60); Total Protein,Serum 7.6 g/dl (6.3-8.2); Triglycerides 119 mg/dl (30-150); VLDL Cholesterol 24 mg/dL (0-40)
[2022-04-24 10:06] LABS: Direct LDL Cholesterol 102.28 mg/dL (100-129)
[2022-04-24 10:26] LABS: Free T4 (Free Thyroxine) 1.61 ng/dl (0.78-2.19)
[2022-04-24 10:26] LABS: Iron 53 ug/dL (37-170)
[2022-04-24 10:35] LABS: Total Iron Binding Capacity 439 ug/dL (265-497)
[2022-04-24 11:03] LABS: Ferritin 31.9 ng/ml (11.1-264)
[2022-04-24 11:58] LABS: Magnesium 1.8 mg/dl (1.6-2.3)
== END 2022-04-24 10:02 | disposition home or self-care (01) ==
LOC: INF 09:10
PROVIDERS: Internal Medicine; Physician Assistant; PCP Internal Medicine Adolescent Medicine; Visit Provider Internal Medicine Medical Oncology
DX: R06.00 Dyspnea, unspecified (principal); E11.9 Type 2 diabetes mellitus without complications; I11.9 Hypertensive heart disease without heart failure; E87.6 Hypokalemia; D64.9 Anemia, unspecified; Z79.4 Long term (current) use of insulin
CPT/HCPCS: 36591; 80048; 80061; 80076; 82728; 83540; 83550; 83735; 84439; 84443; 85025; J1642

== ENCOUNTER 2022-04-29 08:24 | Outpatient (CLI) | payer MEDICARE, MEDICAID, SELFPAY ==
[2022-04-29 08:31] VITALS: BMI 33.5
[2022-04-29 08:48] LABS: Basophils # 0.1 K/mm3 (0-0.2); Basophils % 0.8 % (0.1-2.0); Eosinophils # 0.3 K/mm3 (0.0-0.4); Eosinophils % 4.8 % (0.1-12.0); Hematocrit 30.1 % (37.0-47.0); Hemoglobin 9.4 g/dL (12.2-16.2); Lymphocytes # 0.4 K/mm3 (0.7-4.5); Lymphocytes % 5.9 % (10-50); Mean Corpuscular HGB Conc 31.4 g/dL (31.8-35.4); Mean Corpuscular Hemoglobin 26.9 pg (27.0-31.2); Mean Corpuscular Volume 85.9 fl (81-99); Mean Platelet Volume 8.7 fl (7.4-10.4); Monocytes # 0.4 K/mm3 (0.1-1.0); Neutrophils # 5.9 K/mm3 (1.8-7.8); Neutrophils % 82.5 % (37.0-80.0); Platelet Count 272 K/mm3 (142-424); Red Cell Distribution Width 21.3 % (11.5-17.5); White Blood Count 7.2 K/mm3 (4.8-10.8)
== END 2022-04-29 09:05 | disposition home or self-care (01) ==
LOC: INF 08:25
PROVIDERS: PCP Internal Medicine Adolescent Medicine; Visit Provider Internal Medicine Medical Oncology
DX: Z45.2 Encounter for adjustment and management of vascular access device (principal)
CPT/HCPCS: 36591; 85025; J1642

== ENCOUNTER 2022-05-05 08:33 | Outpatient (CLI) | payer MEDICARE, MEDICAID, SELFPAY ==
[2022-05-05 08:41] VITALS: BMI 34.4
[2022-05-05 09:12] LABS: Basophils % 0.5 % (0.1-2.0); Eosinophils # 0.2 K/mm3 (0.0-0.4); Eosinophils % 3.6 % (0.1-12.0); Hematocrit 26.6 % (37.0-47.0); Hemoglobin 8.6 g/dL (12.2-16.2); Lymphocytes # 0.5 K/mm3 (0.7-4.5); Lymphocytes % 6.8 % (10-50); Mean Corpuscular HGB Conc 32.3 g/dL (31.8-35.4); Mean Corpuscular Hemoglobin 26.8 pg (27.0-31.2); Mean Corpuscular Volume 82.8 fl (81-99); Mean Platelet Volume 8.8 fl (7.4-10.4); Monocytes # 0.3 K/mm3 (0.1-1.0); Neutrophils # 5.7 K/mm3 (1.8-7.8); Neutrophils % 84.3 % (37.0-80.0); Platelet Count 244 K/mm3 (142-424); Red Blood Count 3.21 M/mm3 (4.20-5.40); Red Cell Distribution Width 20.6 % (11.5-17.5); White Blood Count 6.7 K/mm3 (4.8-10.8)
[2022-05-05 09:30] VITALS: BP 141/74; PULSE 68; RESP 20; O2SAT 95
== END 2022-05-05 10:45 | disposition home or self-care (01) ==
LOC: INF 08:34
PROVIDERS: PCP Internal Medicine Adolescent Medicine; Visit Provider Internal Medicine Medical Oncology
DX: D64.9 Anemia, unspecified (principal); Z79.01 Long term (current) use of anticoagulants; Z45.2 Encounter for adjustment and management of vascular access device
CPT/HCPCS: 36591; 85025; 85610; J1642

== ENCOUNTER 2022-05-11 07:18 | Outpatient (CLI) | payer MEDICARE, MEDICAID, SELFPAY ==
[2022-05-11] VITALS (11 sets, daily range): BP systolic 113–138; BP diastolic 54–81; PULSE 55–85; RESP 18; TEMP 36.2–36.4; O2SAT 94–96; BMI 33.5
--- NOTE | 2022-05-11 07:25 | NM_ITS ---
APPROVED REPORT Exam: Nuclear Stress Test Indication: Chest pain, SOB, HTN, DM, High cholesterol, Family history, Afib Patient Location: Outpatient Stress Tech: Saima Juarez [place] Tech:Belkis Lilly, MYNORT, RT (R)(N) Ht: 5 ft 4 in Wt: 200 lbs Bra Size: C HR: 68 bpm BP: 134/69 mmHg BSA: 1.96 m2 TID: 1.19 BMI: 34.3 History: Chest pain, SOB, HTN, DM, High cholesterol, Family history, Afib Procedure: Patient received a 0.4 mg of intravenous Lexiscan, resting heart rate 68 bpm, resting blood pressure 134/69 mmHg, with Lexiscan maximum heart rate achived was 86 bpm which is Less than 85 % of the maximum predicted heart rate and blood pressure was 134/69 mmHg. With Lexiscan, patient denied any complaint of chest pain. Electrocardiogram Resting electrocardiogram shows atrial fibrillation, with Lexiscan there is less than 1.[address] segment depression noted from the baseline EKG. The EKG portion of the Lexiscan is nondiagnostic. Cardiac Stress and Resting SPECT Images: Cardiac Stress and Resting SPECT images were obtained using technetium 99m Myoview 32.2 mCi stress and 10.69 mCi at rest. Patient unable to lay on stomach for prone images. Gated SPECT for analysis of segmental wall motion and calculation of the ejection fraction also done. Cardiac stress and resting SPECT images show a fixed defect in the anterolateral wall likely secondary to area of myocardial scarring, computer derived ejection fraction is 29% with moderate anterolateral wall hypokinesis, right ventricle is normal size and contractility. Conclusion: 1. The EKG portion of the Lexiscan is nondiagnostic. 2. Scintigraphic evidence of myocardial scarring involving the anterolateral wall, computer derived ejection fraction is 29% with segmental wall motion abnormality described above, right ventricle is normal size and contractility. However during this study patient was in atrial fibrillation which may underestimate the ejection fraction. 3. Abnormal Lexiscan Myoview study. Electronically signed by : Pedro Jacobsen MD 05/11/2022 19:32:18
--- NOTE | 2022-05-11 09:12 | HMH.ITSHM ---
Current Home Medications as stated by this patient Irina Costa or veterans employment representative. []INSULIN VITAMIN D2 DEXLANSOPRAZOLE BUMETAMIDE WARFARIN SPIRONOLACTONE POTASSIUM OXYCODONE METOLAZONE LEVALBUTEROL FEBUXOSTAT FAMOTIDINE COLCHICINE CITALOPRAM ASA CALCITRIOL ALPRAZOLAM ZOFRAN OLOPATADINE METOPROLOL LEVOTHYROXINE
--- NOTE | 2022-05-11 09:35 | CA_ITS ---
APPROVED REPORT Exam: Pharmacologic Technologist: Saima Sagastume, Ht: 5 ft 4 in Wt: 202 lbs BSA: 1.96 m2 HR: 67 bpm BP: 134/69 mmHg Medical History Medications: Levothyroxine,,,,, Aspirin,,,,, Warfarin,,,,, Xanax,,,,, Citalopram,,,,, Duoneb,,,,, PERCOCET,,,,, INSULIN,,,,, Cefdinir,,,,, Metolazone,,,,, SpirOnolactone,,,,, PEPcid,,,,, Stress Test Details Test: LEXISCAN HR Resting HR: 68 bpm Max Heart Rate (APMHR): 161.672777 bpm Max HR Achieved: 86 bpm Target HR (85% APMHR): 136.577551 bpm % of APMHR: 53.42 Recovery HR: 80 bpm BP Resting BP: 134/69 mmHg Max BP: 134/69 mmHg Recovery BP: 126.0/75.0 mmHg ECG Resting ECG: Afib with a rate 70 bpm Clinical Exercise duration: 04:00 min Highest Stage Achieved: Stress ECG Conclusion Symptoms: nausea and SOA with lexiscan. No chest pain Arrhythmias/Ectopy: PVCs noted ST-T Changes: <1.5mm ST segment depression Conclusion: Electronically signed by : Pedro Jacobsen MD 05/11/2022 19:17:03
[2022-05-11 11:05] LABS: Basophils % 0.6 % (0.1-2.0); Eosinophils # 0.2 K/mm3 (0.0-0.4); Eosinophils % 3.1 % (0.1-12.0); Hematocrit 24.7 % (37.0-47.0); Hemoglobin 7.9 g/dL (12.2-16.2); Lymphocytes # 0.4 K/mm3 (0.7-4.5); Lymphocytes % 6.1 % (10-50); Mean Corpuscular HGB Conc 32.1 g/dL (31.8-35.4); Mean Corpuscular Hemoglobin 25.7 pg (27.0-31.2); Mean Platelet Volume 8.8 fl (7.4-10.4); Monocytes # 0.4 K/mm3 (0.1-1.0); Monocytes % 5.7 % (1.7-9.3); Neutrophils # 5.9 K/mm3 (1.8-7.8); Neutrophils % 84.5 % (37.0-80.0); Platelet Count 255 K/mm3 (142-424); Red Blood Count 3.09 M/mm3 (4.20-5.40); Red Cell Distribution Width 20.5 % (11.5-17.5)
[2022-05-11 12:09] LABS: Iron 32 ug/dL (37-170)
[2022-05-11 12:19] LABS: Total Iron Binding Capacity 439 ug/dL (265-497)
[2022-05-11 12:20] LABS: INR 4.39 (0.9-1.1); Prothrombin Time 44.5 seconds (10.1-12.5)
[2022-05-11 16:34] LABS: Hematocrit 25.7 % (37.0-47.0); Hemoglobin 8.4 g/dL (12.2-16.2)
== END 2022-05-11 16:30 | disposition home or self-care (01) ==
LOC: RAD 07:18
PROVIDERS: Internal Medicine Medical Oncology; PCP Internal Medicine Adolescent Medicine; Visit Provider Nurse Practitioner Family
DX: E78.2 Mixed hyperlipidemia (principal); I11.0 Hypertensive heart disease with heart failure; I50.32 Chronic diastolic (congestive) heart failure; R07.89 Other chest pain; R06.00 Dyspnea, unspecified; I50.33 Acute on chronic diastolic (congestive) heart failure; D64.9 Anemia, unspecified; Z95.4 Presence of other heart-valve replacement
CPT/HCPCS: 36430; 78452; 83540; 83550; 85014; 85018; 85025; 85610; 86850; 93017; A9502; J1642; J2785; P9016

== ENCOUNTER 2022-05-13 09:24 | Outpatient (CLI) | payer MEDICARE, MEDICAID, SELFPAY ==
[2022-05-13 09:40] VITALS: BP 118/68; PULSE 81; RESP 18; O2SAT 100
[2022-05-13 10:25] VITALS: BP 127/65; PULSE 77; RESP 18
== END 2022-05-13 10:35 | disposition home or self-care (01) ==
LOC: INF 09:25
PROVIDERS: PCP Internal Medicine Adolescent Medicine; Visit Provider Internal Medicine Medical Oncology
DX: D64.9 Anemia, unspecified (principal)
CPT/HCPCS: 96365; J1439; J1642

== ENCOUNTER 2022-05-21 08:11 | Outpatient (CLI) | payer MEDICARE, MEDICAID, SELFPAY ==
[2022-05-21 08:18] VITALS: BMI 34.7
[2022-05-21 08:36] VITALS: BP 132/73; PULSE 67; RESP 18; TEMP 36.6; O2SAT 98
[2022-05-21 08:47] LABS: Basophils % 0.5 % (0.1-2.0); Chloride 99 mmol/L (98-107); Eosinophils # 0.3 K/mm3 (0.0-0.4); Eosinophils % 4.2 % (0.1-12.0); Hematocrit 28.3 % (37.0-47.0); Hemoglobin 8.8 g/dL (12.2-16.2); Lymphocytes # 0.5 K/mm3 (0.7-4.5); Lymphocytes % 8.1 % (10-50); Mean Corpuscular Volume 84.1 fl (81-99); Mean Platelet Volume 7.2 fl (7.4-10.4); Monocytes # 0.4 K/mm3 (0.1-1.0); Monocytes % 6.7 % (1.7-9.3); Neutrophils # 4.7 K/mm3 (1.8-7.8); Neutrophils % 80.4 % (37.0-80.0); Platelet Count 204 K/mm3 (142-424); Red Blood Count 3.37 M/mm3 (4.20-5.40); Red Cell Distribution Width 21.2 % (11.5-17.5); White Blood Count 5.9 K/mm3 (4.8-10.8)
[2022-05-21 08:48] LABS: Potassium 4.2 mmoL/L (3.5-5.1); Sodium 137 mmol/L (136-145)
[2022-05-21 08:50] LABS: Blood Urea Nitrogen 27 mg/dl (7-17); Creatinine Clearance Estimated 80 mL/min (50-200); Estimated Glomerular Filt Rate 51 ml/min (>60); GFR (African American) 62 ML/MIN (>60)
[2022-05-21 08:51] LABS: Alanine Aminotransferase 17 U/L (12-78); Albumin Level 4.4 g/dl (3.5-5.0); Albumin/Globulin Ratio 1.6 (1.1-1.8); Alkaline Phosphatase 108 U/L (38-126); Anion Gap 9.2 mEq/L (5-15); Aspartate Amino Transferase 27 U/L (14-36); Bilirubin,Total 0.7 mg/dl (0.2-1.3); Calcium 9.2 mg/dl (8.4-10.2); Carbon Dioxide 33 mmol/L (22.0-30.0); Globulin 2.8 g/dL (1.3-3.2); Glucose 222 mg/dl (74-100); Total Protein,Serum 7.2 g/dl (6.3-8.2)
[2022-05-21 09:20] VITALS: BP 128/72; PULSE 80; RESP 20; TEMP 36.6; O2SAT 98
== END 2022-05-21 09:20 | disposition home or self-care (01) ==
LOC: INF 08:12
PROVIDERS: PCP Internal Medicine Adolescent Medicine; Visit Provider Internal Medicine Medical Oncology
DX: D64.9 Anemia, unspecified (principal)
CPT/HCPCS: 80053; 85025; 96365; J1439; J1642

== ENCOUNTER 2022-05-27 08:52 | Outpatient (CLI) | payer MEDICARE, MEDICAID, SELFPAY ==
[2022-05-27 08:57] VITALS: BMI 35.2
[2022-05-27 09:25] LABS: Basophils % 0.7 % (0.1-2.0); Eosinophils % 0.6 % (0.1-12.0); Hematocrit 30.3 % (37.0-47.0); Hemoglobin 8.8 g/dL (12.2-16.2); Lymphocytes # 3.3 K/mm3 (0.7-4.5); Lymphocytes % 80.4 % (10-50); Mean Corpuscular HGB Conc 28.9 g/dL (31.8-35.4); Mean Corpuscular Volume 90.2 fl (81-99); Mean Platelet Volume 8.6 fl (7.4-10.4); Monocytes # 0.2 K/mm3 (0.1-1.0); Monocytes % 3.8 % (1.7-9.3); Neutrophils # 0.6 K/mm3 (1.8-7.8); Platelet Count 204 K/mm3 (142-424); Red Blood Count 3.36 M/mm3 (4.20-5.40); Red Cell Distribution Width 24.7 % (11.5-17.5); White Blood Count 4.1 K/mm3 (4.8-10.8)
[2022-05-27 09:27] LABS: Neutrophils % 14.5 % (37.0-80.0)
[2022-05-27 09:28] LABS: MANUAL DIFFERENTIAL MANUAL DIFFERENTIAL (MANUAL DIFF)
[2022-05-27 09:33] LABS: INR 2.51 (0.9-1.1); Prothrombin Time 26.5 seconds (10.1-12.5)
[2022-05-27 09:34] LABS: Alanine Aminotransferase 20 U/L (12-78); Albumin Level 4.1 g/dl (3.5-5.0); Albumin/Globulin Ratio 1.4 (1.1-1.8); Alkaline Phosphatase 89 U/L (38-126); Anion Gap 10.5 mEq/L (5-15); Aspartate Amino Transferase 38 U/L (14-36); Bilirubin,Total 0.6 mg/dl (0.2-1.3); Blood Urea Nitrogen 37 mg/dl (7-17); Carbon Dioxide 37 mmol/L (22.0-30.0); Chloride 91 mmol/L (98-107); Creatinine Clearance Estimated 59 mL/min (50-200); Estimated Glomerular Filt Rate 36 ml/min (>60); GFR (African American) 43 ML/MIN (>60); Glucose 203 mg/dl (74-100); Potassium 3.5 mmoL/L (3.5-5.1); Sodium 135 mmol/L (136-145); Total Protein,Serum 7.1 g/dl (6.3-8.2)
[2022-05-27 09:38] LABS: Anisocytosis 1+; Hypochromasia 1+; Lymphocytes % 5 % (10-50); Monocytes % 10 % (2-9); Neutrophils % 81 % (42-76); Ovalocytes 1+; Total Cells Counted 100
[2022-05-27 09:39] LABS: Platelet Estimate Normal
[2022-05-27 10:25] LABS: Ferritin 435 ng/ml (11.1-264)
[2022-05-27 11:33] LABS: Iron 53 ug/dL (37-170)
[2022-05-27 11:42] LABS: Total Iron Binding Capacity 369 ug/dL (265-497)
== END 2022-05-27 10:05 | disposition home or self-care (01) ==
LOC: INF 08:53
PROVIDERS: PCP Internal Medicine Adolescent Medicine; Visit Provider Internal Medicine Medical Oncology
DX: Z45.2 Encounter for adjustment and management of vascular access device (principal); I50.9 Heart failure, unspecified; D50.8 Other iron deficiency anemias; Z51.81 Encounter for therapeutic drug level monitoring; Z79.01 Long term (current) use of anticoagulants
CPT/HCPCS: 36591; 80053; 82728; 83540; 83550; 85007; 85025; 85610; J1642

== ENCOUNTER 2022-06-02 09:55 | Outpatient (CLI) | payer MEDICARE, MEDICAID, SELFPAY ==
[2022-06-02 10:01] VITALS: BMI 35.0
[2022-06-02 10:18] LABS: Basophils % 0.5 % (0.1-2.0); Eosinophils # 0.2 K/mm3 (0.0-0.4); Eosinophils % 3.3 % (0.1-12.0); Hematocrit 31.2 % (37.0-47.0); Hemoglobin 9.3 g/dL (12.2-16.2); Lymphocytes # 0.5 K/mm3 (0.7-4.5); Lymphocytes % 9.8 % (10-50); Mean Corpuscular HGB Conc 29.8 g/dL (31.8-35.4); Mean Corpuscular Hemoglobin 28.4 pg (27.0-31.2); Mean Corpuscular Volume 95.5 fl (81-99); Mean Platelet Volume 8.8 fl (7.4-10.4); Monocytes # 0.2 K/mm3 (0.1-1.0); Monocytes % 4.4 % (1.7-9.3); Neutrophils # 4.3 K/mm3 (1.8-7.8); Platelet Count 216 K/mm3 (142-424); Red Blood Count 3.26 M/mm3 (4.20-5.40); Red Cell Distribution Width 24.8 % (11.5-17.5); White Blood Count 5.2 K/mm3 (4.8-10.8)
--- NOTE | 2022-06-02 10:27 | PC.NURSE ---
1027-pt hgb 9.3 today per md order pt can d/c home
== END 2022-06-02 10:28 | disposition home or self-care (01) ==
LOC: INF 09:56
PROVIDERS: PCP Internal Medicine Adolescent Medicine; Visit Provider Internal Medicine Medical Oncology
DX: D64.9 Anemia, unspecified (principal); Z45.2 Encounter for adjustment and management of vascular access device
CPT/HCPCS: 36591; 85025; J1642

== ENCOUNTER 2022-06-07 19:44 | Emergency (ER) | payer MEDICARE, MEDICAID, SELFPAY ==
[2022-06-07] VITALS (8 sets, daily range): BP systolic 90–119; BP diastolic 43–75; PULSE 72–86; RESP 21; TEMP 36.7; O2SAT 92–98; BMI 34.0
--- NOTE | 2022-06-07 20:03 | ECG_ITS ---
APPROVED REPORT Exam: Resting ECG HR:82 bpm ECG Measurements Heart Rate 82 AXES QRSd 105 QRS 79 QT 383 T 76 QTc 422 Conclusion ATRIAL FIBRILLATION WITH VENTRICULAR PREMATURE COMPLEXES INCOMPLETE RIGHT BUNDLE BRANCH BLOCK [90+ ms QRS DURATION, TERMINAL R IN V1/V2, 40+ ms S IN I/aVL/V4/V5/V6] NONSPECIFIC T-WAVE ABNORMALITY ABNORMAL RHYTHM ECG UNCONFIRMED REPORT Electronically signed by : Reji Castro MD 06/08/2022 13:48:41
--- NOTE | 2022-06-07 20:07 | PC.NURSE ---
Pt placed in airborne and contact isolation precautions
--- NOTE | 2022-06-07 20:16 | CT_ITS ---
PROCEDURE INFORMATION: Exam: CTA Chest With Contrast Exam date and time: 06/07/2022 9:23 PM Age: 57 years old Clinical indication: Cough and shortness of breath and other: Positive covid; Prior surgery; Surgery date: 6+ months; Surgery type: Mechanical heart valve; Additional info: Cough, shortness of air, pain, covid positive 05/26/ TECHNIQUE: Imaging protocol: Computed tomographic angiography of the chest with contrast. 3D rendering (Not supervised by radiologist): MIP and/or 3D reconstructed images were created by the technologist. Radiation optimization: All CT scans at this facility use at least one of these dose optimization techniques: automated exposure control; mA and/or kV adjustment per patient size (includes targeted exams where dose is matched to clinical indication); or iterative reconstruction. Contrast material: ISOVUE 370; Contrast volume: 70 ml; Contrast route: INTRAVENOUS (IV); COMPARISON: CT CHEST WO CON 02/21/2022 10:35 PM FINDINGS: Tubes, catheters and devices: Right port tip is in the right atrium. Pulmonary arteries: Evaluation of the pulmonary arteries is limited to the segmental arterial level due to patient motion artifact. Aorta: The aorta demonstrates mild atherosclerotic disease. Lungs: Mild scarring and atelectasis in the lower lungs. Pleural spaces: Unremarkable. No pneumothorax. No pleural effusion. Heart: Coronary artery calcifications. Marked cardiomegaly. Mitral valve calcifications. Prosthetic mitral valve. Reflux of contrast into the hepatic veins suggests right heart dysfunction. Lymph nodes: Unremarkable. No enlarged lymph nodes. Liver: Hepatic steatosis and cirrhosis. Adrenal glands: Unchanged 2.5 cm right adrenal gland lipid rich adenoma. Bones/joints: Status post median sternotomy and coronary artery bypass. Old bilateral rib fractures. Soft tissues: Unremarkable. Other findings: Stigmata of old granulomatous disease. IMPRESSION: 1. Evaluation of the pulmonary arteries is limited to the segmental arterial level due to patient motion artifact. Within the limitations of the study, no pulmonary emboli. 2. Reflux of contrast into the hepatic veins suggests right heart dysfunction. 3. Hepatic steatosis and cirrhosis.
--- NOTE | 2022-06-07 20:16 | XR_ITS ---
PROCEDURE INFORMATION: Exam: XR Chest Exam date and time: 06/07/2022 9:12 PM Age: 57 years old Clinical indication: Cough and shortness of breath and other: Covid; Prior surgery; Surgery date: 6+ months; Surgery type: Mechanical heart valve; Additional info: Cough shortness of air covid positive 05/26/22 TECHNIQUE: Imaging protocol: Radiologic exam of the chest. Views: 2 views. COMPARISON: CR XR CHEST 2V 04/14/2022 12:04 PM FINDINGS: Tubes, catheters and devices: Mitral valve prosthesis. Right port tip projects over the mid SVC. Lungs: Mild pulmonary venous congestion. Pleural spaces: Unremarkable. Heart/Mediastinum: Marked cardiomegaly. Vasculature: Vascular calcifications. Bones/joints: Status post median sternotomy. IMPRESSION: No acute findings. Please note that this does not exclude COVID-19 infection.
[2022-06-07 20:18] LABS: Influenza A, PCR Not Detected (NotDetected); Influenza B, PCR Not Detected (NotDetected)
[2022-06-07 20:40] LABS: Coronavirus 19, PCR Detected (NotDetected)
[2022-06-07 20:53] LABS: Basophils # 0.1 K/mm3 (0-0.2); Basophils % 1.1 % (0.1-2.0); Eosinophils # 0.3 K/mm3 (0.0-0.4); Eosinophils % 6.2 % (0.1-12.0); Hematocrit 29.5 % (37.0-47.0); Hemoglobin 9.3 g/dL (12.2-16.2); Lymphocytes # 0.5 K/mm3 (0.7-4.5); Lymphocytes % 9.3 % (10-50); Mean Corpuscular HGB Conc 31.7 g/dL (31.8-35.4); Mean Corpuscular Hemoglobin 28.5 pg (27.0-31.2); Mean Corpuscular Volume 90.1 fl (81-99); Mean Platelet Volume 7.7 fl (7.4-10.4); Microscopic, Urine URINE MICROSCOPIC (MICROSCOPIC); Monocytes # 0.7 K/mm3 (0.1-1.0); Monocytes % 12.6 % (1.7-9.3); Neutrophils # 3.8 K/mm3 (1.8-7.8); Neutrophils % 70.9 % (37.0-80.0); Platelet Count 210 K/mm3 (142-424); Red Blood Count 3.28 M/mm3 (4.20-5.40); Red Cell Distribution Width 21.5 % (11.5-17.5); White Blood Count 5.4 K/mm3 (4.8-10.8)
[2022-06-07 21:03] LABS: Appearance,Urine CLEAR (Clear); Bilirubin,Urine Negative (Negative); Blood, Urine Negative (Negative); Color,Urine YELLOW (Yellow); Glucose,Urine (UA) Negative (Negative); Ketones,Urine Negative (Negative); Leukocyte Esterase,Urine Negative (Negative); Nitrate,Urine Negative (Negative); Protein,Urine Negative (Negative); Urobilinogen,Urine 0.2 EU/dl (0.2)
[2022-06-07 21:05] LABS: INR 2.45 (0.9-1.1); Magnesium 1.8 mg/dl (1.6-2.3); Prothrombin Time 25.9 seconds (10.1-12.5)
[2022-06-07 21:06] LABS: Alanine Aminotransferase 17 U/L (12-78); Albumin Level 4.2 g/dl (3.5-5.0); Albumin/Globulin Ratio 1.4 (1.1-1.8); Alkaline Phosphatase 87 U/L (38-126); Aspartate Amino Transferase 29 U/L (14-36); Bilirubin,Total 0.4 mg/dl (0.2-1.3); Blood Urea Nitrogen 25 mg/dl (7-17); Carbon Dioxide 32 mmol/L (22.0-30.0); Chloride 96 mmol/L (98-107); Creatinine Clearance Estimated 66 mL/min (50-200); Estimated Glomerular Filt Rate 42 ml/min (>60); GFR (African American) 51 ML/MIN (>60); Globulin 2.9 g/dL (1.3-3.2); Glucose 140 mg/dl (74-100); Sodium 137 mmol/L (136-145); Total Protein,Serum 7.1 g/dl (6.3-8.2); WBC,Urine Occasional #/hpf (0-3)
[2022-06-07 21:10] LABS: C-Reactive Protein 8.6 mg/L (0-4)
[2022-06-07 21:15] LABS: NT Pro Brain Natriuretic Pep. 836 pg/mL (0-125)
[2022-06-07 21:19] LABS: Erythrocyte Sedimentation Rate 33 mm/hr (0-30)
[2022-06-07 21:25] LABS: T4 (Thyroxine) 10.1 ug/dl (5.53-11.0)
--- NOTE | 2022-06-07 21:51 | HMH.EDSOB ---
ED Disposition Clinical Impression: COVID-19, History of mitral valve replacement with mechanical valve CKD (chronic kidney disease) stage 3, GFR 30-59 ml/min Qualifiers: Chronic kidney disease stage 3 subtype: stage 3b (GFR 30-44) Qualified Code(s): N18.32 - Chronic kidney disease, stage 3b Anemia Qualifiers: Anemia type: unspecified type Qualified Code(s): D64.9 - Anemia, unspecified Afib Qualifiers: Atrial fibrillation type: unspecified chronic Qualified Code(s): I48.20 - Chronic atrial fibrillation, unspecified Disposition: Home, Self-Care Condition on Discharge: Fair Instructions: DI for COVID-19 (Suspected or Confirmed ) Additional Instructions: use meds and call pcp for follow up Referrals: Reji Castro MD [Primary Care Provider] - - Critical Care Critical Care Time: No Attestation: On 06/07/22, the high probability of a clinically significant, sudden or life threatening deterioration of the following system(s) required my full and direct attention, intervention and personal management. The time I documented below is in addition to time spent performing reported procedures but includes the following listed in this critical care notation. Medical Decision Making - Medical Records Medical records reviewed: Yes: I reviewed the patient's medical records. - Jeancarlos Inquiry Pt receiving controlled substance: No Vital Signs: 06/07/22 19:47 06/07/22 20:00 06/07/22 20:52 Temperature 98.1 F Temperature Source Oral Pulse Rate 72 83 Pulse Rate [Left Radial] 83 Respiratory Rate 21 Blood Pressure 91/64 L 112/75 Blood Pressure [Right Arm] 91/64 L Blood Pressure Mean [Right Arm] 73 Blood Pressure Source [Right Arm] Automatic Cuff Blood Pressure Position [Right Arm] Sitting 02 Sat by Pulse Oximetry 96 95 97 Oxygen Delivery Method Room Air Room Air Room Air 06/07/22 21:43 06/07/22 22:00 06/07/22 22:30 Temperature Temperature Source Pulse Rate 86 80 86 Pulse Rate [Left Radial] Respiratory Rate Blood Pressure 99/52 L 119/63 100/54 L Blood Pressure [Right Arm] Blood Pressure Mean [Right Arm] Blood Pressure Source [Right Arm] Blood Pressure Position [Right Arm] 02 Sat by Pulse Oximetry 98 94 L 96 Oxygen Delivery Method Room Air Room Air Room Air 06/07/22 23:00 06/07/22 23:30 06/08/22 00:00 Temperature Temperature Source Pulse Rate 83 76 87 Pulse Rate [Left Radial] Respiratory Rate Blood Pressure 90/52 L 95/43 L 97/57 L Blood Pressure [Right Arm] Blood Pressure Mean [Right Arm] Blood Pressure Source [Right Arm] Blood Pressure Position [Right Arm] 02 Sat by Pulse Oximetry 92 L 97 95 Oxygen Delivery Method Room Air Room Air Room Air - Lab Data Lab results reviewed: Yes: I reviewed the patient's lab results. Lab Results 06/07/22 20:10: SARS-CoV-2 (PCR) Detected A, Influenza A Untype (PCR) Not detected, Influenza Type B (PCR) Not detected 06/07/22 20:35: WBC 5.4, RBC 3.28 L, Hgb 9.3 L, Hct 29.5 L, MCV 90.1, MCH 28.5, MCHC 31.7 L, RDW 21.5 H, Plt Count 210, MPV 7.7, Neut % (Auto) 70.9, Lymph % (Auto) 9.3 L, [place] % (Auto) 12.6 H, Eos % (Auto) 6.2, Baso % (Auto) 1.1, Neut # (Auto) 3.8, Lymph # (Auto) 0.5 L, [place] # (Auto) 0.7, Eos # (Auto) 0.3, Baso # (Auto) 0.1, ESR 33 H 06/07/22 20:35: Sodium 137, Potassium 4.0, Chloride 96 L, Carbon Dioxide 32 H, Anion Gap 13.0, BUN 25 H, Creatinine 1.30 H, Estimated Creat Clear 66, Estimated GFR 42 L, Est GFR ( Amer) 51 L, Glucose 140 H, Calcium 9.0, Total Bilirubin 0.4, AST 29, ALT 17, Alkaline Phosphatase 87, C-Reactive Protein 8.6 H, Total Protein 7.1, Albumin 4.2, Globulin 2.9, Albumin/Globulin Ratio 1.4, Procalcitonin 0.090, TSH 1.80, Thyroxine (T4) 10.1 06/07/22 20:35: Lactate 1.0 06/07/22 20:35: PT 25.9 H, INR 2.45 H 06/07/22 20:35: Magnesium 1.8 06/07/22 20:35: NT-Pro-B Natriuret Pep 836 H 06/07/22 20:35: Urine Color Yellow, Urine Appearance Clear, Urine pH 7.0, Ur Specific [place] 1
--- NOTE | 2022-06-07 22:32 | PC.NURSE ---
BEDSIDE COMMODE GIVEN TO PATIENT FOR ACCURATE INTAKE/OUTPUT FOLLOWING LASIX ADMINISTRATION. PT UPDATED WITH EXPECTED WAIT TIMES. PT GIVEN BLANKET FOR COMFORT. NO ACUTE DISTRESS NOTED.
[2022-06-08] VITALS: BP 97/57; PULSE 87; O2SAT 95
--- NOTE | 2022-06-08 00:25 | PC.NURSE ---
BSC EMPTIED. PT REPORTS SHE FEELS LIKE SHE IS BREATHING EASIER. PT REPORTS THAT SHE WOULD LIKE TO RETURN HOME IF SHE IS ABLE. AWARE. WCM.
[2022-06-08 00:30] VITALS: BP 106/56; PULSE 81; O2SAT 91
[2022-06-08 00:51] LABS: Troponin I < 0.01 ng/ml (0.00-0.034)
[2022-06-08 01:00] VITALS: BP 109/66; PULSE 85; RESP 18; O2SAT 93
[2022-06-08 01:11] VITALS: BP 109/66; PULSE 92; RESP 19; TEMP 36.8; O2SAT 94
--- NOTE | 2022-06-08 01:30 | PC.NURSE ---
PT BSC EMPTIED. PT DENIES PAIN OR DISCOMFORT. NO COMPLAINTS VOICED. NO ACUTE DISTRESS NOTED. WILL CONTINUE TO MONITOR.
== END 2022-06-08 01:33 | disposition home or self-care (01) ==
PROVIDERS: Emergency Medicine; Emergency Provider Emergency Medicine; PCP Internal Medicine Adolescent Medicine
DX: Z95.2 Presence of prosthetic heart valve (principal); N18.32 Chronic kidney disease, stage 3b; D64.9 Anemia, unspecified; U07.1 COVID-19; I48.20 Chronic atrial fibrillation, unspecified; Z79.82 Long term (current) use of aspirin; Z79.899 Other long term (current) drug therapy; Z88.8 Allergy status to other drugs, medicaments and biological substances; Z88.6 Allergy status to analgesic agent; Z91.041 Radiographic dye allergy status; J44.9 Chronic obstructive pulmonary disease, unspecified; I10 Essential (primary) hypertension
CPT/HCPCS: 71046; 71275; 80053; 81001; 83605; 83735; 83880; 84145; 84436; 84443; 84484; 85025; 85610; 85651; 86140; 87040; 87070; 87205; 93005; 96365; 96375; 99284; C9803; Q9967; U0003; U0005

== ENCOUNTER 2022-06-09 10:22 | Outpatient (CLI) | payer MEDICARE, MEDICAID, SELFPAY ==
[2022-06-09 10:25] VITALS: BMI 33.5
[2022-06-09 10:45] LABS: Microscopic, Urine URINE MICROSCOPIC (MICROSCOPIC)
[2022-06-09 10:48] LABS: Appearance,Urine CLEAR (Clear); Bilirubin,Urine Negative (Negative); Blood, Urine Negative (Negative); Color,Urine YELLOW (Yellow); Glucose,Urine (UA) Negative (Negative); Ketones,Urine Negative (Negative); Leukocyte Esterase,Urine Negative (Negative); Nitrate,Urine Negative (Negative); Protein,Urine Negative (Negative); Urobilinogen,Urine 0.2 EU/dl (0.2)
[2022-06-09 10:50] LABS: Basophils % 0.7 % (0.1-2.0); Eosinophils # 0.3 K/mm3 (0.0-0.4); Eosinophils % 4.8 % (0.1-12.0); Hematocrit 28.3 % (37.0-47.0); Hemoglobin 9.1 g/dL (12.2-16.2); Lymphocytes # 0.4 K/mm3 (0.7-4.5); Mean Corpuscular HGB Conc 32.1 g/dL (31.8-35.4); Mean Corpuscular Hemoglobin 28.5 pg (27.0-31.2); Mean Platelet Volume 8.3 fl (7.4-10.4); Monocytes # 0.4 K/mm3 (0.1-1.0); Monocytes % 7.3 % (1.7-9.3); Neutrophils # 4.1 K/mm3 (1.8-7.8); Neutrophils % 80.2 % (37.0-80.0); Platelet Count 207 K/mm3 (142-424); Red Blood Count 3.18 M/mm3 (4.20-5.40); Red Cell Distribution Width 20.9 % (11.5-17.5); White Blood Count 5.2 K/mm3 (4.8-10.8)
[2022-06-09 10:54] LABS: Alanine Aminotransferase 18 U/L (12-78); Albumin Level 4.1 g/dl (3.5-5.0); Albumin/Globulin Ratio 1.4 (1.1-1.8); Alkaline Phosphatase 93 U/L (38-126); Anion Gap 10.1 mEq/L (5-15); Aspartate Amino Transferase 29 U/L (14-36); Bilirubin,Total 0.4 mg/dl (0.2-1.3); Blood Urea Nitrogen 26 mg/dl (7-17); Calcium 8.8 mg/dl (8.4-10.2); Carbon Dioxide 32 mmol/L (22.0-30.0); Chloride 98 mmol/L (98-107); Creatinine Clearance Estimated 65 mL/min (50-200); Estimated Glomerular Filt Rate 42 ml/min (>60); GFR (African American) 51 ML/MIN (>60); Globulin 2.9 g/dL (1.3-3.2); Glucose 183 mg/dl (74-100); Potassium 4.1 mmoL/L (3.5-5.1); Sodium 136 mmol/L (136-145)
[2022-06-09 10:55] LABS: Uric Acid 6.8 mg/dl (2.5-6.2)
[2022-06-09 11:02] LABS: Bacteria,Urine Trace /lpf; Squamous Epithelial Cell,Urine Occasional #/hpf (0-5); WBC,Urine Occasional #/hpf (0-3)
[2022-06-09 11:07] LABS: Intact Parathyroid Hormone 502.7 pg/mL (7.5-53.5)
[2022-06-09 11:34] LABS: Creatinine,Urine Random 66 mg/dL (Not Estab.)
[2022-06-09 11:43] LABS: Hemoglobin A1C 5.8 % (4.0-6.0)
[2022-06-09 11:59] LABS: 25-OH Vitamin D, Total 37.6 ng/mL (30-100)
== END 2022-06-09 11:11 | disposition home or self-care (01) ==
LOC: INF 10:22
PROVIDERS: Internal Medicine Nephrology; PCP Internal Medicine Adolescent Medicine; Visit Provider Internal Medicine Medical Oncology
DX: E11.22 Type 2 diabetes mellitus with diabetic chronic kidney disease (principal); D63.1 Anemia in chronic kidney disease; N18.2 Chronic kidney disease, stage 2 (mild); E55.9 Vitamin D deficiency, unspecified; Z79.4 Long term (current) use of insulin
CPT/HCPCS: 36591; 80053; 81001; 82306; 82570; 83036; 83970; 84155; 84550; 85025; J1642

== ENCOUNTER → 2022-06-12 13:03 | Outpatient (POV) | payer MEDICARE, MEDICAID, SELFPAY | PROVIDERS: Visit Provider Internal Medicine Nephrology | DX: Z00.00 Encounter for general adult medical examination without abnormal findings (principal) ==

== ENCOUNTER 2022-06-16 08:48 | Outpatient (CLI) | payer MEDICARE, MEDICAID, SELFPAY ==
[2022-06-16 08:51] VITALS: BMI 33.5
[2022-06-16 09:06] LABS: Basophils % 0.6 % (0.1-2.0); Eosinophils # 0.4 K/mm3 (0.0-0.4); Eosinophils % 5.7 % (0.1-12.0); Hemoglobin 8.8 g/dL (12.2-16.2); Lymphocytes # 0.5 K/mm3 (0.7-4.5); Lymphocytes % 7.6 % (10-50); Mean Corpuscular HGB Conc 31.3 g/dL (31.8-35.4); Mean Corpuscular Hemoglobin 28.1 pg (27.0-31.2); Mean Corpuscular Volume 89.7 fl (81-99); Mean Platelet Volume 8.6 fl (7.4-10.4); Monocytes # 0.5 K/mm3 (0.1-1.0); Monocytes % 7.2 % (1.7-9.3); Neutrophils % 78.9 % (37.0-80.0); Platelet Count 242 K/mm3 (142-424); Red Blood Count 3.12 M/mm3 (4.20-5.40); Red Cell Distribution Width 19.5 % (11.5-17.5); White Blood Count 6.4 K/mm3 (4.8-10.8)
== END 2022-06-16 09:36 | disposition home or self-care (01) ==
LOC: INF 08:49
PROVIDERS: PCP Internal Medicine Adolescent Medicine; Visit Provider Internal Medicine Medical Oncology
DX: Z45.2 Encounter for adjustment and management of vascular access device (principal); Z51.81 Encounter for therapeutic drug level monitoring; Z79.01 Long term (current) use of anticoagulants; Z95.2 Presence of prosthetic heart valve
CPT/HCPCS: 36591; 85025; J1642

== ENCOUNTER 2022-06-23 08:50 | Outpatient (CLI) | payer MEDICARE, MEDICAID, SELFPAY ==
[2022-06-23] VITALS (11 sets, daily range): BP systolic 111–125; BP diastolic 57–78; PULSE 81–86; RESP 17–18; TEMP 36.3–36.4; O2SAT 95–98; BMI 33.5
[2022-06-23 09:20] LABS: Basophils % 0.6 % (0.1-2.0); Eosinophils # 0.3 K/mm3 (0.0-0.4); Eosinophils % 5.2 % (0.1-12.0); Hematocrit 25.3 % (37.0-47.0); Hemoglobin 7.6 g/dL (12.2-16.2); Lymphocytes # 0.4 K/mm3 (0.7-4.5); Lymphocytes % 6.3 % (10-50); Mean Corpuscular HGB Conc 29.9 g/dL (31.8-35.4); Mean Corpuscular Hemoglobin 27.1 pg (27.0-31.2); Mean Corpuscular Volume 90.8 fl (81-99); Mean Platelet Volume 8.8 fl (7.4-10.4); Monocytes # 0.4 K/mm3 (0.1-1.0); Monocytes % 6.5 % (1.7-9.3); Neutrophils # 5.4 K/mm3 (1.8-7.8); Neutrophils % 81.4 % (37.0-80.0); Platelet Count 242 K/mm3 (142-424); Red Blood Count 2.79 M/mm3 (4.20-5.40); Red Cell Distribution Width 20.4 % (11.5-17.5); White Blood Count 6.6 K/mm3 (4.8-10.8)
[2022-06-23 09:27] LABS: Iron 29 ug/dL (37-170)
[2022-06-23 09:37] LABS: Total Iron Binding Capacity 357 ug/dL (265-497)
[2022-06-23 10:02] LABS: Ferritin 19.5 ng/ml (11.1-264)
[2022-06-23 14:43] LABS: Hematocrit 25.9 % (37.0-47.0); Hemoglobin 8.1 g/dL (12.2-16.2)
== END 2022-06-23 14:19 | disposition home or self-care (01) ==
LOC: INF 08:51
PROVIDERS: PCP Internal Medicine Adolescent Medicine; Visit Provider Internal Medicine Medical Oncology
DX: D50.9 Iron deficiency anemia, unspecified (principal); Z45.2 Encounter for adjustment and management of vascular access device
CPT/HCPCS: 36430; 82728; 83540; 83550; 85014; 85018; 85025; 86850; J1642; P9016

== ENCOUNTER 2022-06-25 08:23 | Day surgery (SDC) | payer MEDICARE, MEDICAID, SELFPAY ==
[2022-06-25] VITALS (7 sets, daily range): BP systolic 86–127; BP diastolic 42–74; PULSE 80–84; RESP 18–81; TEMP 36.4–36.5; O2SAT 92–98; BMI 35.2
--- NOTE | 2022-06-25 09:00 | HMH.ANESCL ---
[facility] Anesthesia Checklist - Patient Identification Patient Identification: Arm Band, Verbal (Name & ) - Structural Data Admitted From: Home Planned Operative Procedure/s: EGD/Colonoscopy Consent for Planned Operative Procedure(s) Verified: Yes Verified Documents: Surgical Consent - NPO Status Verified Time NPO: 04:00 - Additional verifications Anesthesia Reactions: No Hx Blood Transfusions: No Blood Transfusion Reaction: Yes - Airway Assessment C-Spine Mobility Assessed: Yes TMJ Mobility Assessed: Yes Dentition: Good Dentition - Neurological Assessment Level of Consciousness: Awake, Alert, Appropriate - Anesthesia Plan Anesthesia Risk discussed: Yes ASA Class: III Anesthesia Type: MAC [facility] History I have reviewed the patient's past medical history: Yes Medical History: Reports:: Arrhythmia, Atrial Fibrillation, Cancer, Cardiomyopathy, Congestive Heart Failure, Chronic Obstructive Pulmonary Disease (COPD), Congenital Heart Disease, Coronary Artery Disease, Deep Vein Thrombosis, Diabetes Mellitus Type 2, Gastroesophageal Reflux Disease(GERD), Hyperlipidemia, Hypertension, Valvular Heart Disease Denies:: Diabetes Mellitus Type 1, MRSA, Seizures *Have you ever received a pneumonia vaccine?: Yes *Have you received a flu vaccine this season?: Yes Other Medical History: Reports: Anemia, Arthritis, Blood Transfusion Reaction, Hypothyroidism, Liver Disease, Sinus Problems, Thyroid Disease Anesthesia experience/problems:: none Other Surgeries: Yes: Cardiac Catheterization, Colon Resection, Hernia Repair, Tubal Ligation, Other Amputation: No Fractures: No - *Social History Smoking Status: Former smoker Tobacco Type: cigarettes # Packs/Day (cigarettes): 1 Alcohol Intake: never Substance Use Type: denies use *Occupational Status:: disabled Housing: house Household Members: significant other *Travel in the last 8 weeks: None Family Hx:: Unable to obtain
--- NOTE | 2022-06-25 09:51 | HMH.SCOPE ---
- Procedure: Date: 06/25/22 Patient Date of :: 1965 Procedure Performed:: Upper Endoscopy Indications:: Chronic iron deficiency anemia Performing Provider:: Ajit Monroe MD Referring Provider:: Tyrese Castro Sedation:: Propofol Procedure:: The gastroscope was gently passed through the incisoral orifice into the oral cavity and under direct visualization the esophagus was intubated. The endoscope was passed down the esophagus, through the stomach, and into the duodenum. Color, texture, mucosa, and anatomy of the esophagus, stomach, and duodenum were carefully examined with the scope. Findings:: Oropharynx: normal Esophagus: normal EG Junction: intact at 40 cm Cardia: normal Fundus: normal Body: normal Antrum: normal Duodenal bulb: normal Duodenum (second and third portion): normal Impression: Normal EGD Recommendations:: F/U PRN Complications:: None Estimated blood obtained (mL): 0
--- NOTE | 2022-06-25 09:56 | HMH.SCOPE ---
- Procedure: Date: 06/25/22 Patient Date of :: 1965 Procedure Performed:: Screening colonoscopy Indications:: Chronic iron deficiency anemia Performing Provider:: Ajit Monroe MD Referring Provider:: Tyrese Castro Sedation:: Propofol Procedure:: After placing the patient in the left lateral decubitus position, the colonoscopy was gently inserted into the rectum and under direct visualization advanced to the cecum which was identified by transillumination in the right lower quadrant, identification of the ileocecal valve, appendiceal orifice, and cecal strap. Color, texture, mucosa, and anatomy of the colon were carefully examined with the scope. Findings:: Anal canal: normal Rectum: normal Sigmoid colon: normal without polyps or inflammatory changes Descending colon: normal without polyps or inflammatory changes Splenic flexure: normal Transverse colon: normal without polyps or inflammatory changes Hepatic flexure: normal Ascending colon: normal without polyps or inflammatory changes Cecum: normal Terminal ileum: not visualized Impression: Overall normal colonoscopy Recommendations:: Routine follow up in about TEN years, sooner if clinically indicated Complications:: None Estimated blood obtained (mL): 0
[2022-06-25 10:50] LABS: POC Glucose,Bedside 147 (70-110)
== END 2022-06-25 10:40 | disposition home or self-care (01) ==
LOC: OUTP 08:25
PROVIDERS: PCP Internal Medicine Adolescent Medicine; Visit Provider Internal Medicine Gastroenterology
PROC: 0DJ08ZZ Inspection of Upper Intestinal Tract, Via Natural or Artificial Opening Endoscopic (ICD-10-PCS; CPT 43235; principal; 2022-06-25 10:00)
DX: Z12.11 Encounter for screening for malignant neoplasm of colon (principal); D50.9 Iron deficiency anemia, unspecified; I11.0 Hypertensive heart disease with heart failure; I50.9 Heart failure, unspecified; I48.91 Unspecified atrial fibrillation; J44.9 Chronic obstructive pulmonary disease, unspecified; E11.9 Type 2 diabetes mellitus without complications; K21.9 Gastro-esophageal reflux disease without esophagitis; E78.5 Hyperlipidemia, unspecified; Z79.899 Other long term (current) drug therapy; Z79.4 Long term (current) use of insulin
CPT/HCPCS: 43235; G0121; 82962; J1642

== ENCOUNTER → 2022-06-29 08:43 | Outpatient (CLI) | payer MEDICARE, MEDICAID, SELFPAY ==
--- NOTE | 2022-06-29 08:47 | NM_ITS ---
FINAL REPORT CLINICAL HISTORY: HTN,CKD STAGE 3,HYPERPARATHYROIDISM 9:25AM 20.6MCI TC SESTAMIBI FINDINGS: 20.6 mCi Technetium Sestamibi was administered. Planar imaging was performed early and two-hour delayed of the neck and upper thorax. Early imaging shows physiologic uptake within the upper neck involving the salivary glands and lower neck involving the thyroid gland. On delayed imaging there is no abnormal retained activity in the lower neck or mediastinum to localize parathyroid adenoma. IMPRESSION: No scintigraphic evidence of parathyroid adenoma. Reviewed, Interpreted and Dictated by Pravin Crespo III, MD Transcribed by Luciano Soriano Authenticated and [facility]
== END ==
PROVIDERS: PCP Internal Medicine Adolescent Medicine; Visit Provider Internal Medicine Nephrology
DX: E87.1 Hypo-osmolality and hyponatremia (principal); I12.9 Hypertensive chronic kidney disease with stage 1 through stage 4 chronic kidney disease, or unspecified chronic kidney disease; N18.30 Chronic kidney disease, stage 3 unspecified; E55.9 Vitamin D deficiency, unspecified; E11.22 Type 2 diabetes mellitus with diabetic chronic kidney disease; E87.6 Hypokalemia; E21.3 Hyperparathyroidism, unspecified; Z79.4 Long term (current) use of insulin
CPT/HCPCS: 78070; A9502

== ENCOUNTER 2022-06-30 08:49 | Outpatient (CLI) | payer MEDICARE, MEDICAID, SELFPAY ==
[2022-06-30 08:57] VITALS: BMI 33.5
[2022-06-30 09:15] LABS: Basophils % 0.3 % (0.1-2.0); Eosinophils # 0.3 K/mm3 (0.0-0.4); Eosinophils % 4.1 % (0.1-12.0); Hematocrit 26.4 % (37.0-47.0); Lymphocytes # 0.3 K/mm3 (0.7-4.5); Lymphocytes % 5.1 % (10-50); Mean Corpuscular HGB Conc 30.5 g/dL (31.8-35.4); Mean Corpuscular Hemoglobin 26.8 pg (27.0-31.2); Mean Corpuscular Volume 87.7 fl (81-99); Mean Platelet Volume 10.4 fl (7.4-10.4); Monocytes # 0.4 K/mm3 (0.1-1.0); Monocytes % 5.9 % (1.7-9.3); Neutrophils # 5.2 K/mm3 (1.8-7.8); Neutrophils % 84.6 % (37.0-80.0); Platelet Count 244 K/mm3 (142-424); Red Blood Count 3.01 M/mm3 (4.20-5.40); Red Cell Distribution Width 19.7 % (11.5-17.5); White Blood Count 6.1 K/mm3 (4.8-10.8)
[2022-06-30 09:26] VITALS: BP 116/66; PULSE 67; RESP 18; O2SAT 100
[2022-06-30 10:21] VITALS: BP 133/78; PULSE 72; RESP 18; O2SAT 99
== END 2022-06-30 10:22 | disposition home or self-care (01) ==
LOC: INF 08:50
PROVIDERS: PCP Internal Medicine Adolescent Medicine; Visit Provider Internal Medicine Medical Oncology
DX: D64.9 Anemia, unspecified (principal)
CPT/HCPCS: 85025; 96365; J1439; J1642

== ENCOUNTER 2022-07-03 09:00 | Outpatient (CLI) | payer MEDICARE, MEDICAID, SELFPAY ==
[2022-07-03 09:04] VITALS: BMI 71.5
[2022-07-03 09:19] LABS: Basophils # 0.1 K/mm3 (0-0.2); Basophils % 0.7 % (0.1-2.0); Eosinophils # 0.5 K/mm3 (0.0-0.4); Eosinophils % 5.6 % (0.1-12.0); Hematocrit 27.8 % (37.0-47.0); Hemoglobin 8.2 g/dL (12.2-16.2); Lymphocytes # 0.4 K/mm3 (0.7-4.5); Lymphocytes % 4.1 % (10-50); Mean Corpuscular HGB Conc 29.6 g/dL (31.8-35.4); Mean Corpuscular Hemoglobin 26.4 pg (27.0-31.2); Mean Corpuscular Volume 89.3 fl (81-99); Mean Platelet Volume 10.3 fl (7.4-10.4); Monocytes # 0.5 K/mm3 (0.1-1.0); Monocytes % 5.8 % (1.7-9.3); Neutrophils # 7.3 K/mm3 (1.8-7.8); Neutrophils % 83.9 % (37.0-80.0); Platelet Count 285 K/mm3 (142-424); Red Blood Count 3.11 M/mm3 (4.20-5.40); Red Cell Distribution Width 20.9 % (11.5-17.5); White Blood Count 8.7 K/mm3 (4.8-10.8)
== END 2022-07-03 09:46 | disposition home or self-care (01) ==
LOC: INF 09:01
PROVIDERS: PCP Internal Medicine Adolescent Medicine; Visit Provider Internal Medicine Medical Oncology
DX: D50.8 Other iron deficiency anemias (principal); Z45.2 Encounter for adjustment and management of vascular access device
CPT/HCPCS: 36591; 85025; 96523; J1642

== ENCOUNTER 2022-07-07 09:53 | Outpatient (CLI) | payer MEDICARE, MEDICAID, SELFPAY ==
[2022-07-07 10:02] VITALS: BP 120/68; PULSE 72; RESP 18; TEMP 36.4; O2SAT 98; BMI 33.5
[2022-07-07 10:32] LABS: Basophils % 0.7 % (0.1-2.0); Eosinophils # 0.4 K/mm3 (0.0-0.4); Hemoglobin 8.6 g/dL (12.2-16.2); Lymphocytes # 0.3 K/mm3 (0.7-4.5); Lymphocytes % 5.6 % (10-50); Mean Corpuscular HGB Conc 29.6 g/dL (31.8-35.4); Mean Corpuscular Volume 91.3 fl (81-99); Mean Platelet Volume 9.1 fl (7.4-10.4); Monocytes # 0.3 K/mm3 (0.1-1.0); Neutrophils # 4.9 K/mm3 (1.8-7.8); Neutrophils % 82.7 % (37.0-80.0); Platelet Count 256 K/mm3 (142-424); Red Blood Count 3.18 M/mm3 (4.20-5.40); Red Cell Distribution Width 22.8 % (11.5-17.5)
[2022-07-07 11:00] VITALS: BP 124/70; PULSE 73; RESP 18; O2SAT 99
== END 2022-07-07 11:00 | disposition home or self-care (01) ==
LOC: INF 09:53
PROVIDERS: PCP Internal Medicine Adolescent Medicine; Visit Provider Internal Medicine Medical Oncology
DX: D64.9 Anemia, unspecified (principal); Z51.81 Encounter for therapeutic drug level monitoring; Z79.01 Long term (current) use of anticoagulants
CPT/HCPCS: 85025; 85610; 96365; J1439; J1642

== ENCOUNTER → 2022-07-14 08:44 | Outpatient (CLI) | payer MEDICARE, MEDICAID, SELFPAY ==
[2022-07-14 08:47] VITALS: BMI 33.5
[2022-07-14 09:16] LABS: Basophils % 0.6 % (0.1-2.0); Eosinophils # 0.3 K/mm3 (0.0-0.4); Eosinophils % 4.1 % (0.1-12.0); Hematocrit 30.8 % (37.0-47.0); Hemoglobin 8.8 g/dL (12.2-16.2); Lymphocytes # 0.3 K/mm3 (0.7-4.5); Lymphocytes % 5.3 % (10-50); Mean Corpuscular HGB Conc 28.4 g/dL (31.8-35.4); Mean Corpuscular Hemoglobin 28.1 pg (27.0-31.2); Mean Corpuscular Volume 98.8 fl (81-99); Mean Platelet Volume 8.4 fl (7.4-10.4); Monocytes # 0.3 K/mm3 (0.1-1.0); Monocytes % 4.9 % (1.7-9.3); Neutrophils # 5.4 K/mm3 (1.8-7.8); Neutrophils % 85.1 % (37.0-80.0); Platelet Count 242 K/mm3 (142-424); Red Blood Count 3.12 M/mm3 (4.20-5.40); White Blood Count 6.3 K/mm3 (4.8-10.8)
[2022-07-14 09:18] LABS: Red Cell Distribution Width 25.2 % (11.5-17.5)
[2022-07-14 09:19] LABS: MANUAL DIFFERENTIAL MANUAL DIFFERENTIAL (MANUAL DIFF)
[2022-07-14 09:28] LABS: INR 4.75 (0.9-1.1)
[2022-07-14 09:30] LABS: Prothrombin Time 47.8 seconds (10.1-12.5)
--- NOTE | 2022-07-14 09:36 | PC.NURSE ---
critical PT result of 47.8 called from Shea Sanders in lab. lab result, and name verified and repeated. Coumadin clinic was contacted and is following up with patient at this time.
[2022-07-14 09:52] LABS: Anisocytosis 1+; Eosinophils % 2 % (0-3); Hypochromasia 3+; Lymphocytes % 7 % (10-50); Monocytes % 2 % (2-9); Neutrophils % 89 % (42-76); Platelet Estimate Normal; Total Cells Counted 100
== END ==
PROVIDERS: PCP Internal Medicine Adolescent Medicine; Visit Provider Internal Medicine Medical Oncology
DX: D64.9 Anemia, unspecified (principal); Z79.01 Long term (current) use of anticoagulants; Z45.2 Encounter for adjustment and management of vascular access device
CPT/HCPCS: 36591; 85007; 85025; 85610; J1642

== ENCOUNTER 2022-07-21 09:46 | Outpatient (CLI) | payer MEDICARE, MEDICAID, SELFPAY ==
[2022-07-21 09:46] VITALS: BMI 34.7
[2022-07-21 10:17] LABS: Basophils % 0.7 % (0.1-2.0); Eosinophils # 0.4 K/mm3 (0.0-0.4); Eosinophils % 5.9 % (0.1-12.0); Hematocrit 28.9 % (37.0-47.0); Hemoglobin 8.5 g/dL (12.2-16.2); Lymphocytes # 0.4 K/mm3 (0.7-4.5); Lymphocytes % 6.2 % (10-50); Mean Corpuscular HGB Conc 29.3 g/dL (31.8-35.4); Mean Corpuscular Hemoglobin 27.8 pg (27.0-31.2); Mean Corpuscular Volume 94.8 fl (81-99); Mean Platelet Volume 8.1 fl (7.4-10.4); Monocytes # 0.4 K/mm3 (0.1-1.0); Monocytes % 5.8 % (1.7-9.3); Neutrophils % 81.3 % (37.0-80.0); Platelet Count 215 K/mm3 (142-424); Red Blood Count 3.04 M/mm3 (4.20-5.40); Red Cell Distribution Width 20.8 % (11.5-17.5); White Blood Count 6.2 K/mm3 (4.8-10.8)
[2022-07-21 10:30] VITALS: BP 122/74; PULSE 68; RESP 20; TEMP 36.7; O2SAT 95
[2022-07-21 10:36] LABS: INR 1.83 (0.9-1.1); Prothrombin Time 19.8 seconds (10.1-12.5)
== END 2022-07-21 10:45 | disposition home or self-care (01) ==
LOC: INF 09:47
PROVIDERS: PCP Internal Medicine Adolescent Medicine; Visit Provider Internal Medicine Medical Oncology
DX: D50.8 Other iron deficiency anemias (principal); Z51.81 Encounter for therapeutic drug level monitoring; Z79.01 Long term (current) use of anticoagulants; Z95.2 Presence of prosthetic heart valve; Z45.2 Encounter for adjustment and management of vascular access device
CPT/HCPCS: 36591; 85025; 85610; J1642

== ENCOUNTER 2022-07-28 08:43 | Outpatient (CLI) | payer MEDICARE, MEDICAID, SELFPAY ==
[2022-07-28 08:50] VITALS: BMI 34.7
[2022-07-28 09:28] LABS: Basophils % 0.7 % (0.1-2.0); Eosinophils # 0.4 K/mm3 (0.0-0.4); Eosinophils % 6.3 % (0.1-12.0); Hematocrit 28.5 % (37.0-47.0); Hemoglobin 8.9 g/dL (12.2-16.2); Lymphocytes # 0.4 K/mm3 (0.7-4.5); Lymphocytes % 5.4 % (10-50); Mean Corpuscular HGB Conc 31.1 g/dL (31.8-35.4); Mean Corpuscular Hemoglobin 28.9 pg (27.0-31.2); Mean Platelet Volume 8.3 fl (7.4-10.4); Monocytes # 0.4 K/mm3 (0.1-1.0); Monocytes % 5.5 % (1.7-9.3); Neutrophils # 5.2 K/mm3 (1.8-7.8); Neutrophils % 82.1 % (37.0-80.0); Platelet Count 249 K/mm3 (142-424); Red Blood Count 3.06 M/mm3 (4.20-5.40); Red Cell Distribution Width 21.2 % (11.5-17.5); White Blood Count 6.3 K/mm3 (4.8-10.8)
[2022-07-28 09:33] LABS: INR 3.44 (0.9-1.1); Prothrombin Time 34.6 seconds (10.1-12.5)
[2022-07-28 09:59] LABS: Iron 51 ug/dL (37-170)
[2022-07-28 10:08] LABS: Total Iron Binding Capacity 403 ug/dL (265-497)
[2022-07-28 10:34] LABS: Ferritin 58.1 ng/ml (11.1-264)
== END 2022-07-28 10:15 | disposition home or self-care (01) ==
LOC: INF 08:44
PROVIDERS: PCP Internal Medicine Adolescent Medicine; Visit Provider Internal Medicine Medical Oncology
DX: D64.9 Anemia, unspecified (principal); Z51.81 Encounter for therapeutic drug level monitoring; Z79.01 Long term (current) use of anticoagulants
CPT/HCPCS: 36591; 82728; 83540; 83550; 85025; 85610; J1642

== ENCOUNTER 2022-07-31 11:19 | Outpatient (CLI) | payer MEDICARE, MEDICAID, SELFPAY ==
[2022-07-31 11:22] VITALS: BMI 33.5
[2022-07-31 11:49] LABS: Basophils # 0.1 K/mm3 (0-0.2); Basophils % 0.9 % (0.1-2.0); Eosinophils # 0.4 K/mm3 (0.0-0.4); Eosinophils % 5.7 % (0.1-12.0); Hematocrit 28.6 % (37.0-47.0); Hemoglobin 8.9 g/dL (12.2-16.2); Lymphocytes # 0.5 K/mm3 (0.7-4.5); Lymphocytes % 6.9 % (10-50); Mean Corpuscular HGB Conc 31.2 g/dL (31.8-35.4); Mean Corpuscular Hemoglobin 27.7 pg (27.0-31.2); Mean Corpuscular Volume 88.5 fl (81-99); Monocytes # 0.5 K/mm3 (0.1-1.0); Monocytes % 6.3 % (1.7-9.3); Neutrophils # 5.8 K/mm3 (1.8-7.8); Neutrophils % 80.3 % (37.0-80.0); Platelet Count 274 K/mm3 (142-424); Red Blood Count 3.23 M/mm3 (4.20-5.40); Red Cell Distribution Width 20.7 % (11.5-17.5); White Blood Count 7.2 K/mm3 (4.8-10.8)
[2022-07-31 11:58] LABS: Alanine Aminotransferase 17 U/L (12-78); Albumin Level 4.4 g/dl (3.5-5.0); Albumin/Globulin Ratio 1.5 (1.1-1.8); Alkaline Phosphatase 120 U/L (38-126); Anion Gap 11.8 mEq/L (5-15); Aspartate Amino Transferase 24 U/L (14-36); Bilirubin,Total 0.4 mg/dl (0.2-1.3); Blood Urea Nitrogen 34 mg/dl (7-17); Calcium 9.4 mg/dl (8.4-10.2); Carbon Dioxide 35 mmol/L (22.0-30.0); Chloride 96 mmol/L (98-107); Creatinine Clearance Estimated 56 mL/min (50-200); Estimated Glomerular Filt Rate 36 ml/min (>60); GFR (African American) 43 ML/MIN (>60); Glucose 118 mg/dl (74-100); Potassium 3.8 mmoL/L (3.5-5.1); Sodium 139 mmol/L (136-145); Total Protein,Serum 7.4 g/dl (6.3-8.2)
[2022-07-31 11:59] LABS: Magnesium 1.7 mg/dl (1.6-2.3); Phosphorous 3.3 mg/dl (2.5-4.5)
== END 2022-07-31 12:20 | disposition home or self-care (01) ==
LOC: INF 11:20
PROVIDERS: PCP Internal Medicine Adolescent Medicine; Visit Provider Internal Medicine Medical Oncology
DX: D64.9 Anemia, unspecified (principal)
CPT/HCPCS: 36591; 80053; 83735; 84100; 85025; J1642

== ENCOUNTER 2022-08-11 08:55 | Outpatient (CLI) | payer MEDICARE, MEDICAID, SELFPAY ==
[2022-08-11] VITALS (11 sets, daily range): BP systolic 111–132; BP diastolic 56–82; PULSE 79–85; RESP 16–18; TEMP 36.3–36.6; O2SAT 96–98; BMI 33.5
[2022-08-11 09:24] LABS: Basophils # 0.1 K/mm3 (0-0.2); Basophils % 0.7 % (0.1-2.0); Eosinophils # 0.3 K/mm3 (0.0-0.4); Eosinophils % 4.2 % (0.1-12.0); Hematocrit 24.6 % (37.0-47.0); Hemoglobin 7.5 g/dL (12.2-16.2); Lymphocytes # 0.4 K/mm3 (0.7-4.5); Lymphocytes % 6.3 % (10-50); Mean Corpuscular HGB Conc 30.5 g/dL (31.8-35.4); Mean Corpuscular Hemoglobin 26.5 pg (27.0-31.2); Mean Corpuscular Volume 86.7 fl (81-99); Mean Platelet Volume 8.3 fl (7.4-10.4); Monocytes # 0.4 K/mm3 (0.1-1.0); Monocytes % 5.6 % (1.7-9.3); Neutrophils # 5.4 K/mm3 (1.8-7.8); Neutrophils % 83.2 % (37.0-80.0); Platelet Count 259 K/mm3 (142-424); Red Blood Count 2.84 M/mm3 (4.20-5.40); Red Cell Distribution Width 20.3 % (11.5-17.5); White Blood Count 6.4 K/mm3 (4.8-10.8)
[2022-08-11 11:19] LABS: INR 4.48 (0.9-1.1); Prothrombin Time 44.4 seconds (10.1-12.5)
--- NOTE | 2022-08-11 15:33 | PC.NURSE ---
1121 Initiation of transfusion of 1 unit PRBC per standing order to transfuse 1 unit PRBC for Hgb <8. H&H 7.5/24.6 today. Port patent/good return/flushes easily. Vital signs stable. Lungs with few scattered wheezes noted. Patient reports some increased shortness of breath with exertion. Patient verbalizes understanding of s/s transfusion reaction. Patient requests to be given IV diuretic as prophylactic treatment d/t her reports of being unable to tolerate blood at times/fluid overload. 1151 Tolerating tranfusion well. Resp easy/reg. Denies complaints. Vital signs stable. Port patent without problems. No s/s reaction noted. 1221 Continues to tolerate blood well. VSS. Resp easy/reg. Up to bathroom and voids without difficulty. No s/s transfusion reaction or problems noted. [address] Benson per patient request for post transfusion IV diuretic/Order given for Lasix 20mg IV push x1 after blood transfusion. 1321 Sleeps at intervals/awakens easily for assessment. VSS. Port patent. Resp easy/reg. Denies complaints. Tolerating blood well with no s/s transfusion reaction noted. 1410 Blood complete at this time. 1510 One hour post vital signs stable. Lasix 20mg IV given as ordered. Patient discharged home/stable.
== END 2022-08-11 15:15 | disposition home or self-care (01) ==
LOC: INF 08:56
PROVIDERS: PCP Internal Medicine Adolescent Medicine; Visit Provider Internal Medicine Medical Oncology
DX: Z45.2 Encounter for adjustment and management of vascular access device (principal); D64.9 Anemia, unspecified; Z51.81 Encounter for therapeutic drug level monitoring; Z79.01 Long term (current) use of anticoagulants
CPT/HCPCS: 36430; 85025; 85610; 86850; 96374; J1642; P9016

== ENCOUNTER 2022-08-18 09:20 | Outpatient (CLI) | payer MEDICARE, MEDICAID, SELFPAY ==
[2022-08-18 09:24] VITALS: BMI 33.5
[2022-08-18 09:45] LABS: Basophils # 0.1 K/mm3 (0-0.2); Basophils % 0.7 % (0.1-2.0); Eosinophils # 0.3 K/mm3 (0.0-0.4); Eosinophils % 4.1 % (0.1-12.0); Hematocrit 24.8 % (37.0-47.0); Hemoglobin 7.5 g/dL (12.2-16.2); Lymphocytes # 0.3 K/mm3 (0.7-4.5); Lymphocytes % 4.7 % (10-50); Mean Corpuscular HGB Conc 30.1 g/dL (31.8-35.4); Mean Corpuscular Hemoglobin 25.8 pg (27.0-31.2); Mean Corpuscular Volume 85.7 fl (81-99); Mean Platelet Volume 8.7 fl (7.4-10.4); Monocytes # 0.4 K/mm3 (0.1-1.0); Monocytes % 5.8 % (1.7-9.3); Neutrophils # 5.8 K/mm3 (1.8-7.8); Neutrophils % 84.6 % (37.0-80.0); Platelet Count 259 K/mm3 (142-424); Red Blood Count 2.89 M/mm3 (4.20-5.40); Red Cell Distribution Width 20.2 % (11.5-17.5); White Blood Count 6.8 K/mm3 (4.8-10.8)
[2022-08-18 10:05] LABS: INR 5.23 (0.9-1.1); Prothrombin Time 51.4 seconds (10.1-12.5)
--- NOTE | 2022-08-18 10:28 | PC.NURSE ---
james isabel from lab called critical lab results. PT of 51.4, INR of 5.23. lab result, and name verified and read back. Ian from Coumadin clinic was contacted and will come speak with pt about course of action. No new orders at this time.
--- NOTE | 2022-08-18 11:43 | PC.NURSE ---
Blood bank called, pt has antibodies that can not be identified here, pt blood will need to be sent to [facility] for further evaluation. Pt will return tomorrow for PRBC transfusion.
== END 2022-08-18 13:55 | disposition home or self-care (01) ==
LOC: INF 09:21
PROVIDERS: PCP Internal Medicine Adolescent Medicine; Visit Provider Internal Medicine Medical Oncology
DX: D50.8 Other iron deficiency anemias (principal); D64.9 Anemia, unspecified; Z51.81 Encounter for therapeutic drug level monitoring; Z79.01 Long term (current) use of anticoagulants; Z45.2 Encounter for adjustment and management of vascular access device
CPT/HCPCS: 36591; 85025; 85610; 86850; J1642

== ENCOUNTER 2022-08-19 09:03 | Outpatient (CLI) | payer MEDICARE, MEDICAID, SELFPAY ==
[2022-08-19] VITALS (12 sets, daily range): BP systolic 112–137; BP diastolic 62–80; PULSE 78–90; RESP 18; TEMP 36.1–36.4; O2SAT 92–100
== END 2022-08-19 13:45 | disposition home or self-care (01) ==
LOC: INF 09:04
PROVIDERS: PCP Internal Medicine Adolescent Medicine; Visit Provider Internal Medicine Medical Oncology
DX: D50.8 Other iron deficiency anemias (principal)
CPT/HCPCS: 36430; J1642; P9016

== ENCOUNTER 2022-08-23 16:20 | Observation (INO) | payer MEDICARE, MEDICAID, SELFPAY ==
[2022-08-23] VITALS (20 sets, daily range): BP systolic 93–129; BP diastolic 53–92; PULSE 66–89; RESP 13–18; TEMP 36.6–37; O2SAT 92–99; BMI 35.2; BMI 35.1
--- NOTE | 2022-08-23 16:35 | ECG_ITS ---
APPROVED REPORT Exam: Resting ECG HR:81 bpm ECG Measurements Heart Rate 81 AXES QRSd 121 QRS 101 QT 415 T 83 QTc 452 Conclusion ATRIAL FIBRILLATION RIGHT AXIS DEVIATION [QRS AXIS > 100] Incomplete RBBB ABNORMAL ECG UNCONFIRMED REPORT Electronically signed by : Reji Castro MD 08/24/2022 20:07:02
--- NOTE | 2022-08-23 17:00 | XR_ITS ---
PROCEDURE INFORMATION: Exam: XR Chest Exam date and time: 08/23/2022 5:27 PM Age: 57 years old Clinical indication: Other: Weakness // heart HX; Additional info: Weak TECHNIQUE: Imaging protocol: Radiologic exam of the chest. Views: 1 view. COMPARISON: CR XR CHEST 2V 06/07/2022 9:12 PM FINDINGS: Tubes, catheters and devices: Right jugular port with catheter tip in the mid SVC. Lungs: Normal pulmonary expansion. Mild central vascular congestion. Chronic alveolar density in the right perihilar region is unchanged from numerous prior chest x-rays back to 03/01/2022, favoring chronic bandlike atelectasis, possibly compressive atelectasis from cardiomegaly. Chronic or recurrent perihilar pneumonia considered less likely. Pleural spaces: No pleural effusion. No pneumothorax. Heart/Mediastinum: Severe cardiomegaly. Prior median sternotomy with prosthetic heart valve again noted. No tracheal/mediastinal shift. Bones/joints: No acute osseous abnormalities are identified. Osteopenia. IMPRESSION: 1. No acute thoracic process. 2. Cardiomegaly and mild vascular congestive changes with prior sternotomy and prosthetic heart valve. 3. Chronic right perihilar alveolar densities are unchanged and probably represent compressive atelectasis. Chronic or recurrent right perihilar infiltrate less likely.
--- NOTE | 2022-08-23 17:05 | HMH.EDGENADL ---
Discharge Plan Disposition Patient Disposition: Admitted as Observation Condition: Fair Clinical Impressions Clinical Impression: Anemia, Weakness, Shortness of breath Discharge ED Provider: Hodan Gallegos Adult HPI General Chief complaint: Weakness Stated complaint: weak,dizzy,CHEUNG,nausea Time Seen by Provider: 08/23/22 16:40 Mode of Arrival: Wheelchair Source of Information: Patient Limitations: No Limitations Description of Symptoms (Recalled from ER Triage Doc. 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 she has had 3 units of blood in 2 weeks and is due this week for her iron transfusion. states that she is weak, nauseous and at times feels she is short of breath. pt is on coumadin for a mechanical heart valve. History of Present Illness HPI narrative: 57-year-old female presenting to the emergency department with weakness, shortness of breath, dizziness. Symptoms have gotten worse over the last few days. She suffers from hemolytic anemia. She is scheduled for an iron transfusion monthly, due in the next few days. She has felt fatigued recently. Low energy. Low exercise capacity. Feels that her skin is somewhat pale. She does not have fevers, chills, nausea, vomiting, diarrhea, dark stools. No vision changes. No numbness, weakness, tingling in her arms or legs. Related Data Home Medications Medication Instructions Recorded Confirmed aspirin 81 mg tablet,delayed 81 mg PO DAILY HEART HEALTH 12/01/17 08/19/22 release (Adult Low Dose Aspirin) oxycodone-acetaminophen 10 mg-325 1 tab PO TIDP PRN Moderate Pain 05/23/18 08/19/22 mg tablet (Percocet) alprazolam 0.5 mg tablet (Xanax) 0.5 mg PO TIDP PRN Anxiety 11/29/19 08/19/22 citalopram 40 mg tablet 40 mg PO DAILY MOOD 03/31/21 08/19/22 famotidine 20 mg tablet (Pepcid) 20 mg PO DAILYP PRN gerd 04/22/21 08/19/22 levothyroxine 25 mcg tablet 25 mcg PO DAILYDM HYPOTHYROIDISM 06/05/21 08/19/22 dexlansoprazole 60 mg 60 mg PO DAILY GERD 06/06/21 08/19/22 capsule,biphase delayed release ergocalciferol (vitamin D2) 1,250 50,000 units PO MONTHLY Supplement 06/06/21 08/19/22 mcg (50,000 unit) capsule olopatadine 0.2 % eye drops 1 drp OU DAILY allergies 06/23/21 08/19/22 ondansetron 4 mg disintegrating 4 mg PO Q8HP PRN Nausea 06/23/21 08/19/22 tablet warfarin 5 mg tablet 5 mg PO DAILY MECHANICAL VALVE 09/09/21 08/19/22 calcitriol 0.25 mcg capsule 0.25 mcg PO Q48H Supplement 10/02/21 08/19/22 metolazone 2.5 mg tablet 2.5 mg PO DAILY PRN FLUID RETENTION 10/02/21 08/19/22 colchicine 0.6 mg capsule 0.6 mg PO DAILYP PRN gout 01/22/22 08/19/22 (Mitigare) febuxostat 40 mg tablet (Uloric) 40 mg PO DAILY GOUT 01/22/22 08/19/22 potassium chloride 20 mEq 20 meq PO DAILY Supplement 01/22/22 08/19/22 tablet,extended release(part/cryst) insulin glargine 100 50 units SQ DAILY Diabetes 02/22/22 08/19/22 unit-lixisenatide 33 mcg/mL subcutaneous pen sennosides 8.6 mg-docusate sodium 1 tab PO BIDP PRN Constipation 02/22/22 08/19/22 50 mg tablet bumetanide 1 mg tablet 1 mg PO BIDL Fluid 03/07/22 08/19/22 metoprolol succinate 50 mg 50 mg PO BID High blood pressure 03/07/22 08/19/22 tablet,extended release 24 hr levalbuterol HCl 1.25 mg/3 mL 1.25 mg inhalation TID PRN COPD 03/16/22 08/19/22 solution for nebulization blood sugar diagnostic (True #10 ea 05/21/22 08/19/22 Metrix Glucose Test Strip) blood-glucose meter (True Metrix #1 ea 05/21/22 08/19/22 Glucose Meter) lancets 26 gauge (Lancets,Ultra #100 ea 05/21/22 08/19/22 Thin) magnesium 250 mg tablet 250 mg PO DAILY PRN SUPPLEMENT 05/21/22 08/19/22 enoxaparin 100 mg/mL subcutaneous 90 mg SQ BID LOVENOX BRIDGE 06/25/22 08/19/22 syringe fluticasone propionate 110 1 inh inhalation BID Breathing 07/16/22 08/19/22 mcg/actuation HFA aerosol inhaler problems (Flovent HFA) Previous Rx's Medication Instructions Recorded spironolactone 25 mg tablet 25 mg PO BID Edema #60 tabs 07/17/
[2022-08-23 17:10] LABS: Basophils # 0.1 K/mm3 (0-0.2); Basophils % 0.7 % (0.1-2.0); Eosinophils # 0.2 K/mm3 (0.0-0.4); Eosinophils % 3.5 % (0.1-12.0); Hematocrit 24.5 % (37.0-47.0); Hemoglobin 7.7 g/dL (12.2-16.2); Lymphocytes # 0.5 K/mm3 (0.7-4.5); Lymphocytes % 6.9 % (10-50); Mean Corpuscular HGB Conc 31.4 g/dL (31.8-35.4); Mean Corpuscular Hemoglobin 26.2 pg (27.0-31.2); Mean Corpuscular Volume 83.5 fl (81-99); Mean Platelet Volume 8.7 fl (7.4-10.4); Monocytes # 0.4 K/mm3 (0.1-1.0); Neutrophils # 5.7 K/mm3 (1.8-7.8); Neutrophils % 82.8 % (37.0-80.0); Platelet Count 268 K/mm3 (142-424); Red Blood Count 2.93 M/mm3 (4.20-5.40); White Blood Count 6.9 K/mm3 (4.8-10.8)
[2022-08-23 17:12] LABS: Chloride 95 mmol/L (98-107); Sodium 138 mmol/L (136-145)
[2022-08-23 17:13] LABS: Potassium 3.9 mmoL/L (3.5-5.1)
[2022-08-23 17:15] LABS: Alanine Aminotransferase 16 U/L (12-78); Albumin Level 4.4 g/dl (3.5-5.0); Albumin/Globulin Ratio 1.6 (1.1-1.8); Alkaline Phosphatase 95 U/L (38-126); Anion Gap 15.9 mEq/L (5-15); Aspartate Amino Transferase 27 U/L (14-36); Bilirubin,Total 0.7 mg/dl (0.2-1.3); Blood Urea Nitrogen 36 mg/dl (7-17); Carbon Dioxide 31 mmol/L (22.0-30.0); Creatinine Clearance Estimated 74 mL/min (50-200); Estimated Glomerular Filt Rate 46 ml/min (>60); GFR (African American) 56 ML/MIN (>60); Globulin 2.7 g/dL (1.3-3.2); Total Protein,Serum 7.1 g/dl (6.3-8.2)
[2022-08-23 17:16] LABS: Calcium 8.6 mg/dl (8.4-10.2); Glucose 230 mg/dl (74-100)
[2022-08-23 17:44] LABS: Coronavirus 19, PCR Not Detected (NotDetected); Influenza A, PCR Not Detected (NotDetected); Influenza B, PCR Not Detected (NotDetected)
[2022-08-23 18:02] LABS: INR 3.44 (0.9-1.1); Prothrombin Time 34.6 seconds (10.1-12.5)
--- NOTE | 2022-08-23 20:24 | PC.NURSE ---
PT BEING TRANSPORTED UP FOR ADMISSION
--- NOTE | 2022-08-23 20:28 | PC.NURSE ---
pt arrived to floor via wheelchair at this time
[2022-08-24 00:38] VITALS: BP 97/57; PULSE 72; RESP 16; TEMP 36.7; O2SAT 98
[2022-08-24 01:38] VITALS: BP 108/59; PULSE 76; RESP 16; TEMP 36.8; O2SAT 99
[2022-08-24 02:43] LABS: Hematocrit 26.8 % (37.0-47.0); Hemoglobin 8.2 g/dL (12.2-16.2)
--- NOTE | 2022-08-24 03:24 | PC.NURSE ---
No acute changes since previous assessment. Pt received 1 unit PRBCs this shift without issue. Post H&H drawn - HGB > 8. Pt has been resting in intervals. Pt is currently on 2 L NC, but only uses when sleeping. VSS. Port accessed, c/d/i. Lungs CTA. No complaints or needs voiced at this time. Call light in reach, bed in lowest position.
[2022-08-24 04:00] VITALS: BP 120/60; PULSE 77; RESP 16; TEMP 36.6; O2SAT 92
[2022-08-24 05:00] VITALS: BMI 35.2
[2022-08-24 06:50] LABS: Basophils # 0.1 K/mm3 (0-0.2); Basophils % 0.7 % (0.1-2.0); Eosinophils # 0.4 K/mm3 (0.0-0.4); Eosinophils % 5.8 % (0.1-12.0); Hemoglobin 8.2 g/dL (12.2-16.2); Lymphocytes # 0.7 K/mm3 (0.7-4.5); Mean Corpuscular HGB Conc 31.2 g/dL (31.8-35.4); Mean Corpuscular Hemoglobin 26.1 pg (27.0-31.2); Mean Corpuscular Volume 83.7 fl (81-99); Mean Platelet Volume 8.5 fl (7.4-10.4); Monocytes # 0.4 K/mm3 (0.1-1.0); Monocytes % 6.1 % (1.7-9.3); Neutrophils # 5.1 K/mm3 (1.8-7.8); Neutrophils % 76.4 % (37.0-80.0); Platelet Count 256 K/mm3 (142-424); Red Blood Count 3.14 M/mm3 (4.20-5.40); Red Cell Distribution Width 19.5 % (11.5-17.5); White Blood Count 6.7 K/mm3 (4.8-10.8)
[2022-08-24 06:51] LABS: Hematocrit 26.3 % (37.0-47.0)
[2022-08-24 06:55] LABS: Chloride 95 mmol/L (98-107); Potassium 4.1 mmoL/L (3.5-5.1); Sodium 139 mmol/L (136-145)
[2022-08-24 06:58] LABS: Anion Gap 14.1 mEq/L (5-15); Blood Urea Nitrogen 34 mg/dl (7-17); Calcium 8.7 mg/dl (8.4-10.2); Carbon Dioxide 34 mmol/L (22.0-30.0); Creatinine Clearance Estimated 69 mL/min (50-200); Estimated Glomerular Filt Rate 42 ml/min (>60); GFR (African American) 51 ML/MIN (>60); Glucose 133 mg/dl (74-100)
--- NOTE | 2022-08-24 07:20 | P.CONPHA_ITS ---
[facility] Pharmacy VTE Monitoring Patient Demographics Admission date: 08/23/22 Report Date: 08/24/22 Time: 07:20 Patient Allergies codeine [CODEINE] Allergy (Unknown, Verified 08/11/22 14:50) nausea, swelling Corticosteroids (Glucocorticoids) [CORTICOSTEROIDS (GLUCOCORTICOIDS)] Allergy (Unknown, Verified 08/11/22 14:50) rosuvastatin [From CRESTOR] Allergy (Unknown, Verified 08/11/22 14:50) theophylline [From DAVID-DUR] Allergy (Unknown, Verified 08/11/22 14:50) Iodinated Contrast Media [IODINATED CONTRAST- ORAL AND IV DYE] Adverse Reaction (Severe, Verified 08/11/22 14:50) shuts kidneys down and bleeding buprenorphine [From BUPRENEX] Adverse Reaction (Intermediate, Verified 08/11/22 14:50) Nausea prednisone Adverse Reaction (Verified 08/11/22 14:50) Height: 1.63 m Weight: 93.712 kg Current Active Problems (Updated 08/23/22 @ 19:35 by Waqar Rosas RN) Anemia (Acute) Weakness (Acute) Shortness of breath (Acute) VTE Risk Labs: VTE Related Lab Results Hgb 8.2 g/dL (12.2-16.2) L 08/24/22 06:39 Hct 26.3 % (37.0-47.0) L 08/24/22 06:39 Plt Count 256 K/mm3 (142-424) 08/24/22 06:39 PT 34.6 seconds (10.1-12.5) H 08/23/22 17:38 INR 3.44 (0.9-1.1) H 08/23/22 17:38 BUN 34 mg/dl (7-17) H 08/24/22 06:39 Creatinine 1.30 mg/dl (0.52-1.04) H 08/24/22 06:39 Estimated Creat Clear 69 mL/min (50-200) 08/24/22 06:39 Was VTE Risk Assessment Performed: Yes VTE Score: 3 VTE Risk Level: Low Risk Prophylaxis VTE Prophylaxis Ordered?: Yes Types of VTE Prophylaxis: TEDS Knee High and Pharmacological Location of Applied Device: Bilateral Lower Extremeties Pharmacologic Type: Warfarin
--- NOTE | 2022-08-24 07:24 | HMH.PHAINT1 ---
Pharmacy Intervention Comments: Home medication reconciliation completed using outpatient pharmacy list and interview with patient.
[2022-08-24 08:00] VITALS: BP 91/47; PULSE 79; RESP 17; TEMP 36.6; O2SAT 97
--- NOTE | 2022-08-24 08:42 | EXP.HPDC ---
General Admission date:: 08/23/22 Discharge date: 08/24/22 *Admission Date: 08/23/22 *Chief complaint: Weakness/anemia *History of present illness: 57-year-old white female with long history of autoimmune hemolytic anemia who received a transfusion last week and is due for iron infusions this Wednesday. She came to the emergency department because she was extremely weak, unable to care for self, hemoglobin was less than 7.4. Admitted to hospital for transfusion. [facility] Medical History (Updated 08/23/22 @ 19:35 by Waqar Rosas RN) Afib Afib Anemia Anemia Arrhythmia Arrhythmia Arthritis Arthritis Autoimmune hemolytic anemia Blood transfusion reaction Blood transfusion reaction CAD (coronary artery disease) Cancer Cardiomyopathy Cardiomyopathy CHF (congestive heart failure) CHF (congestive heart failure) CKD (chronic kidney disease) Congestive heart failure, NYHA class III COPD (chronic obstructive pulmonary disease) COPD (chronic obstructive pulmonary disease) Coronary artery disease Diabetes mellitus DM type 2 (diabetes mellitus, type 2) DVT (deep venous thrombosis) DVT (deep venous thrombosis) GERD (gastroesophageal reflux disease) GERD (gastroesophageal reflux disease) Hernia HLD (hyperlipidemia) HLD (hyperlipidemia) HLD (hyperlipidemia) HTN (hypertension) Hyperlipidemia Hypertension Hypothyroidism Hypothyroidism Liver disease Liver disease NYHA class 3 acute on chronic systolic heart failure Polyarthralgia Pulmonary edema Rheumatic heart disease Rib fracture Sinus problem Sinus problem Thyroid disease Valvular heart disease Surgical History H/O tubal ligation History of angioplasty History of cardiac cath History of cardiac catheterization History of colon resection History of colon resection History of hernia repair History of renal stent History of renal stent History of tubal ligation History of ureteroscopy Mitral valve replaced Family History COPD (chronic obstructive pulmonary disease) Hypertension Social History (Updated 08/23/22 @ 19:39 by Waqar Rosas RN) Smoking Status: Former smoker pack-years: 43 smoking status stop date: 01/09/2006 quit status: quit date established second hand exposure: Yes alcohol intake: never substance use type: denies use current occupational status: disabled Travel in the last 8 weeks: None adopted: No caregiver/support person: No foster care: No household members: significant other housing: house lives independently: Yes marital status: life partner education level: college service: No group home: No current occupational exposures/hazards: No sexually active: Yes how many partners: 1 are you practicing safe sex: Yes diet: diabetic well-balanced diet: about half the time caffeine: Yes eating out: rarely or never during the past year weight has: remained stable bhavya/presybeterian: Taoist special bhavya needs: No agree to transfusion: Yes helmet use: No water heater temp set < 120 deg: Yes working smoke detector in home: Yes fire extinguisher in home: Yes carbon monox detector in home: Yes firearms in home: No do you feel safe at home: Yes victim of physical abuse: No victim of emotional abuse: No victim of sexual abuse: No would you like helpful sources: No Review of Systems Review of Systems Review of systems:: pertinent systems reviewed and negative unless documented below Constitutional Constitutional: Reports headache(s) Eyes Eyes: Denies loss of vision ENT Ears, Nose, Mouth, and Throat: Reports dizziness and Reports headache(s) *Neurologic Neurologic: Reports dizziness, Reports headache(s) and Denies loss of vision Exam Data for Last 24 hours Vital signs and Labs for Last 24 Hours: Temp Pulse Resp BP Pulse Ox 98 F 79 17
[2022-08-24 11:40] LABS: POC Glucose,Bedside 198 (70-110)
== END 2022-08-24 13:05 | disposition home or self-care (01) ==
LOC: ER 16:33 → 2ND 18:39
PROVIDERS: Admitting Provider Internal Medicine Adolescent Medicine; Emergency Provider Emergency Medicine; PCP Internal Medicine Adolescent Medicine; Visit Provider Internal Medicine Adolescent Medicine
DX: D64.9 Anemia, unspecified (principal); E11.9 Type 2 diabetes mellitus without complications; I48.91 Unspecified atrial fibrillation; I42.9 Cardiomyopathy, unspecified; I11.0 Hypertensive heart disease with heart failure; I25.10 Atherosclerotic heart disease of native coronary artery without angina pectoris; E03.9 Hypothyroidism, unspecified; K21.9 Gastro-esophageal reflux disease without esophagitis; Z79.899 Other long term (current) drug therapy; Z79.01 Long term (current) use of anticoagulants; Z20.822 Contact with and (suspected) exposure to COVID-19; Z79.4 Long term (current) use of insulin; I50.22 Chronic systolic (congestive) heart failure
CPT/HCPCS: G0378; 36415; 71045; 80048; 80053; 82962; 85014; 85018; 85025; 85610; 86850; 93005; 94640; 99285; C9803; P9016; U0003; U0005

== ENCOUNTER 2022-08-26 09:59 | Outpatient (CLI) | payer MEDICARE, MEDICAID, SELFPAY ==
[2022-08-26 10:04] VITALS: BMI 33.5
[2022-08-26 10:29] LABS: Basophils % 0.3 % (0.1-2.0); Eosinophils # 0.1 K/mm3 (0.0-0.4); Eosinophils % 1.1 % (0.1-12.0); Hematocrit 27.4 % (37.0-47.0); Hemoglobin 8.4 g/dL (12.2-16.2); Lymphocytes # 0.5 K/mm3 (0.7-4.5); Lymphocytes % 4.3 % (10-50); Mean Corpuscular HGB Conc 30.5 g/dL (31.8-35.4); Mean Corpuscular Hemoglobin 25.6 pg (27.0-31.2); Mean Platelet Volume 9.3 fl (7.4-10.4); Monocytes # 0.6 K/mm3 (0.1-1.0); Neutrophils # 9.2 K/mm3 (1.8-7.8); Neutrophils % 88.2 % (37.0-80.0); Platelet Count 275 K/mm3 (142-424); Red Blood Count 3.27 M/mm3 (4.20-5.40); Red Cell Distribution Width 19.6 % (11.5-17.5); White Blood Count 10.4 K/mm3 (4.8-10.8)
[2022-08-26 10:31] LABS: MANUAL DIFFERENTIAL MANUAL DIFFERENTIAL (MANUAL DIFF)
[2022-08-26 10:42] LABS: Iron 22 ug/dL (37-170)
[2022-08-26 10:43] LABS: Lymphocytes % 3 % (10-50); Monocytes % 4 % (2-9); Neutrophils % 93 % (42-76); Total Cells Counted 100
[2022-08-26 10:44] LABS: Anisocytosis 1+; Hypochromasia 1+; Ovalocytes 1+; Platelet Estimate Normal
[2022-08-26 10:51] LABS: Total Iron Binding Capacity 579 ug/dL (265-497)
[2022-08-26 11:19] LABS: Ferritin 11.6 ng/ml (11.1-264)
== END 2022-08-26 10:40 | disposition home or self-care (01) ==
LOC: INF 10:00
PROVIDERS: PCP Internal Medicine Adolescent Medicine; Visit Provider Internal Medicine Medical Oncology
DX: D64.9 Anemia, unspecified (principal); D50.9 Iron deficiency anemia, unspecified
CPT/HCPCS: 36591; 82728; 83540; 83550; 85007; 85025; J1642

== ENCOUNTER 2022-09-01 09:14 | Outpatient (CLI) | payer MEDICARE, MEDICAID, SELFPAY ==
[2022-09-01 09:19] VITALS: BMI 34.7
[2022-09-01 09:33] LABS: Basophils % 0.6 % (0.1-2.0); Eosinophils # 0.3 K/mm3 (0.0-0.4); Hematocrit 25.6 % (37.0-47.0); Hemoglobin 7.8 g/dL (12.2-16.2); Lymphocytes # 0.4 K/mm3 (0.7-4.5); Lymphocytes % 5.8 % (10-50); Mean Corpuscular HGB Conc 30.4 g/dL (31.8-35.4); Mean Corpuscular Hemoglobin 24.7 pg (27.0-31.2); Mean Corpuscular Volume 81.2 fl (81-99); Mean Platelet Volume 9.1 fl (7.4-10.4); Monocytes # 0.3 K/mm3 (0.1-1.0); Monocytes % 4.7 % (1.7-9.3); Neutrophils # 5.9 K/mm3 (1.8-7.8); Platelet Count 286 K/mm3 (142-424); Red Blood Count 3.16 M/mm3 (4.20-5.40); Red Cell Distribution Width 19.8 % (11.5-17.5); White Blood Count 6.9 K/mm3 (4.8-10.8)
[2022-09-01 09:35] LABS: MANUAL DIFFERENTIAL MANUAL DIFFERENTIAL (MANUAL DIFF)
[2022-09-01 09:38] VITALS: BP 129/78; PULSE 87; RESP 19; O2SAT 97
[2022-09-01 09:44] LABS: Eosinophils % 1 % (0-3); Lymphocytes % 10 % (10-50); Monocytes % 9 % (2-9); Neutrophils % 80 % (42-76); Total Cells Counted 100
[2022-09-01 09:45] LABS: Hypochromasia 1+; Ovalocytes 1+; Platelet Estimate Normal
[2022-09-01 09:49] LABS: Tear Drop Cells 1+
[2022-09-01 09:50] LABS: Poikilocytosis 1+
[2022-09-01 10:02] LABS: INR 3.45 (0.9-1.1); Prothrombin Time 34.7 seconds (10.1-12.5)
--- NOTE | 2022-09-01 10:15 | PC.NURSE ---
1015-k.jack isabel at chair side to witness type and cross for 1 unit prbc to be given tomorrow.
[2022-09-01 10:20] VITALS: BP 134/84; PULSE 86; RESP 18
--- NOTE | 2022-09-01 11:15 | PC.NURSE ---
1115-pt blood ready in lab;pt will be back tomorrow to receive unit.
== END 2022-09-01 10:20 | disposition home or self-care (01) ==
LOC: INF 09:15
PROVIDERS: PCP Internal Medicine Adolescent Medicine; Visit Provider Internal Medicine Medical Oncology
DX: E61.1 Iron deficiency (principal); D64.9 Anemia, unspecified; Z51.81 Encounter for therapeutic drug level monitoring; Z79.01 Long term (current) use of anticoagulants
CPT/HCPCS: 85007; 85025; 85610; 86850; 96365; J1439; J1642

== ENCOUNTER → 2022-09-02 08:29 | Outpatient (CLI) | payer MEDICARE, MEDICAID, SELFPAY ==
[2022-09-02] VITALS (11 sets, daily range): BP systolic 90–142; BP diastolic 48–88; PULSE 71–93; RESP 18–19; TEMP 36.4–36.7; O2SAT 95–100
== END ==
PROVIDERS: PCP Internal Medicine Adolescent Medicine; Visit Provider Internal Medicine Medical Oncology
DX: D50.8 Other iron deficiency anemias (principal)
CPT/HCPCS: 36430; J1642; P9016

== ENCOUNTER 2022-09-08 09:38 | Outpatient (CLI) | payer MEDICARE, MEDICAID, SELFPAY ==
[2022-09-08 09:48] VITALS: BMI 34.7
[2022-09-08 10:33] VITALS: BP 136/63; PULSE 69; RESP 18; TEMP 36.4; O2SAT 96
[2022-09-08 10:43] LABS: Microscopic, Urine URINE MICROSCOPIC (MICROSCOPIC)
[2022-09-08 10:47] LABS: Appearance,Urine SL CLOUDY (Clear); Bilirubin,Urine Negative (Negative); Blood, Urine Negative (Negative); Color,Urine YELLOW (Yellow); Glucose,Urine (UA) Negative (Negative); Ketones,Urine Negative (Negative); Leukocyte Esterase,Urine TRACE (Negative); Nitrate,Urine Negative (Negative); Protein,Urine Negative (Negative); Specific Gravity, Urine 1.015 (1.005-1.030); Urobilinogen,Urine 0.2 EU/dl (0.2)
[2022-09-08 10:49] LABS: Basophils # 0.1 K/mm3 (0-0.2); Basophils % 0.7 % (0.1-2.0); Eosinophils # 0.2 K/mm3 (0.0-0.4); Eosinophils % 2.9 % (0.1-12.0); Hematocrit 30.1 % (37.0-47.0); Hemoglobin 9.2 g/dL (12.2-16.2); Lymphocytes # 0.4 K/mm3 (0.7-4.5); Lymphocytes % 4.7 % (10-50); Mean Corpuscular HGB Conc 30.7 g/dL (31.8-35.4); Mean Corpuscular Hemoglobin 26.7 pg (27.0-31.2); Mean Corpuscular Volume 87.1 fl (81-99); Mean Platelet Volume 8.4 fl (7.4-10.4); Monocytes # 0.3 K/mm3 (0.1-1.0); Neutrophils % 87.6 % (37.0-80.0); Platelet Count 230 K/mm3 (142-424); Red Blood Count 3.46 M/mm3 (4.20-5.40)
[2022-09-08 10:53] LABS: MANUAL DIFFERENTIAL MANUAL DIFFERENTIAL (MANUAL DIFF)
[2022-09-08 10:53] LABS: Creatinine,Urine Random 21 mg/dL (Not Estab.)
[2022-09-08 10:58] LABS: Alanine Aminotransferase 14 U/L (12-78); Albumin Level 4.1 g/dl (3.5-5.0); Albumin/Globulin Ratio 1.5 (1.1-1.8); Alkaline Phosphatase 120 U/L (38-126); Anion Gap 13.1 mEq/L (5-15); Aspartate Amino Transferase 27 U/L (14-36); Bilirubin,Total 0.7 mg/dl (0.2-1.3); Blood Urea Nitrogen 16 mg/dl (7-17); Calcium 8.5 mg/dl (8.4-10.2); Carbon Dioxide 32 mmol/L (22.0-30.0); Chloride 99 mmol/L (98-107); Creatinine Clearance Estimated 97 mL/min (50-200); Estimated Glomerular Filt Rate 64 ml/min (>60); GFR (African American) 78 ML/MIN (>60); Globulin 2.8 g/dL (1.3-3.2); Glucose 143 mg/dl (74-100); INR 3.42 (0.9-1.1); Potassium 4.1 mmoL/L (3.5-5.1); Prothrombin Time 34.5 seconds (10.1-12.5); Sodium 140 mmol/L (136-145); Total Protein,Serum 6.9 g/dl (6.3-8.2); Uric Acid 7.7 mg/dl (2.5-6.2)
[2022-09-08 11:01] LABS: Anisocytosis 1+; Hypochromasia 1+; Lymphocytes % 2 % (10-50); Monocytes % 6 % (2-9); Neutrophils % 92 % (42-76); Ovalocytes 1+; Poikilocytosis 1+; Total Cells Counted 100
[2022-09-08 11:02] LABS: Platelet Estimate Normal; Tear Drop Cells 1+
[2022-09-08 11:02] LABS: Squamous Epithelial Cell,Urine Occasional #/hpf (0-5); WBC,Urine Occasional #/hpf (0-3)
[2022-09-08 11:08] LABS: Hemoglobin A1C 6.1 % (4.0-6.0)
[2022-09-08 11:11] LABS: Intact Parathyroid Hormone 351.7 pg/mL (7.5-53.5)
[2022-09-08 11:17] LABS: 25-OH Vitamin D, Total 34.4 ng/mL (30-100)
[2022-09-08 11:20] VITALS: BP 131/67; PULSE 67; RESP 18; O2SAT 96
== END 2022-09-08 11:22 | disposition home or self-care (01) ==
LOC: INF 09:39
PROVIDERS: Internal Medicine Nephrology; PCP Internal Medicine Adolescent Medicine; Visit Provider Internal Medicine Medical Oncology
DX: D64.9 Anemia, unspecified (principal); E55.9 Vitamin D deficiency, unspecified; E87.6 Hypokalemia; E21.3 Hyperparathyroidism, unspecified; E87.1 Hypo-osmolality and hyponatremia; N18.30 Chronic kidney disease, stage 3 unspecified; E11.22 Type 2 diabetes mellitus with diabetic chronic kidney disease; Z51.81 Encounter for therapeutic drug level monitoring; Z79.01 Long term (current) use of anticoagulants
CPT/HCPCS: 80053; 81001; 82306; 82570; 83036; 83970; 84155; 84550; 85007; 85025; 85610; 96365; J1439; J1642

== ENCOUNTER 2022-09-15 09:31 | Outpatient (CLI) | payer MEDICARE, MEDICAID, SELFPAY ==
[2022-09-15 09:39] VITALS: BMI 33.5
[2022-09-15 10:07] LABS: Basophils # 0.1 K/mm3 (0-0.2); Eosinophils # 0.5 K/mm3 (0.0-0.4); Hematocrit 33.3 % (37.0-47.0); Hemoglobin 10.2 g/dL (12.2-16.2); Lymphocytes # 0.4 K/mm3 (0.7-4.5); Lymphocytes % 4.7 % (10-50); Mean Corpuscular HGB Conc 30.7 g/dL (31.8-35.4); Mean Corpuscular Hemoglobin 27.3 pg (27.0-31.2); Mean Corpuscular Volume 88.9 fl (81-99); Mean Platelet Volume 7.7 fl (7.4-10.4); Monocytes # 0.4 K/mm3 (0.1-1.0); Monocytes % 4.8 % (1.7-9.3); Neutrophils # 6.2 K/mm3 (1.8-7.8); Neutrophils % 82.5 % (37.0-80.0); Platelet Count 265 K/mm3 (142-424); Red Blood Count 3.75 M/mm3 (4.20-5.40); Red Cell Distribution Width 25.3 % (11.5-17.5); White Blood Count 7.5 K/mm3 (4.8-10.8)
== END 2022-09-15 10:16 | disposition home or self-care (01) ==
LOC: INF 09:32
PROVIDERS: PCP Internal Medicine Adolescent Medicine; Visit Provider Internal Medicine Medical Oncology
DX: D64.9 Anemia, unspecified (principal); D50.8 Other iron deficiency anemias; Z45.2 Encounter for adjustment and management of vascular access device
CPT/HCPCS: 36591; 85025; J1642

== ENCOUNTER → 2022-09-18 15:35 | Outpatient (POV) | payer MEDICARE, MEDICAID, SELFPAY | PROVIDERS: Visit Provider Internal Medicine Nephrology | DX: Z00.00 Encounter for general adult medical examination without abnormal findings (principal) ==

== ENCOUNTER 2022-09-22 10:29 | Outpatient (CLI) | payer MEDICARE, MEDICAID, SELFPAY ==
[2022-09-22 10:36] VITALS: BMI 35.9
[2022-09-22 10:53] LABS: Basophils # 0.1 K/mm3 (0-0.2); Basophils % 1.1 % (0.1-2.0); Eosinophils # 0.3 K/mm3 (0.0-0.4); Eosinophils % 3.5 % (0.1-12.0); Hematocrit 28.8 % (37.0-47.0); Hemoglobin 9.2 g/dL (12.2-16.2); Lymphocytes # 0.4 K/mm3 (0.7-4.5); Lymphocytes % 4.4 % (10-50); Mean Corpuscular HGB Conc 31.8 g/dL (31.8-35.4); Mean Corpuscular Hemoglobin 28.5 pg (27.0-31.2); Mean Corpuscular Volume 89.6 fl (81-99); Mean Platelet Volume 8.3 fl (7.4-10.4); Monocytes # 0.5 K/mm3 (0.1-1.0); Monocytes % 5.7 % (1.7-9.3); Neutrophils # 7.1 K/mm3 (1.8-7.8); Neutrophils % 85.2 % (37.0-80.0); Platelet Count 257 K/mm3 (142-424); Red Blood Count 3.22 M/mm3 (4.20-5.40); Red Cell Distribution Width 24.2 % (11.5-17.5); White Blood Count 8.3 K/mm3 (4.8-10.8)
[2022-09-22 10:58] LABS: MANUAL DIFFERENTIAL MANUAL DIFFERENTIAL (MANUAL DIFF)
[2022-09-22 11:04] LABS: Eosinophils % 3 % (0-3); Lymphocytes % 5 % (10-50); Monocytes % 7 % (2-9); Neutrophils % 85 % (42-76); Total Cells Counted 100
[2022-09-22 11:05] LABS: Anisocytosis 1+; Hypochromasia 1+; Ovalocytes 1+; Platelet Estimate Normal
[2022-09-22 11:22] LABS: INR 5.12 (0.9-1.1); Prothrombin Time 50.4 seconds (10.1-12.5)
== END 2022-09-22 11:41 | disposition home or self-care (01) ==
PROVIDERS: PCP Internal Medicine Adolescent Medicine; Visit Provider Internal Medicine Medical Oncology
DX: D50.8 Other iron deficiency anemias (principal); Z51.81 Encounter for therapeutic drug level monitoring; Z79.01 Long term (current) use of anticoagulants
CPT/HCPCS: 36591; 85007; 85025; 85610; J1642

== ENCOUNTER 2022-09-29 08:53 | Outpatient (CLI) | payer MEDICARE, MEDICAID, SELFPAY ==
[2022-09-29 08:58] VITALS: BMI 35.9
[2022-09-29 09:21] LABS: Basophils % 0.4 % (0.1-2.0); Eosinophils # 0.3 K/mm3 (0.0-0.4); Eosinophils % 3.3 % (0.1-12.0); Hematocrit 25.9 % (37.0-47.0); Hemoglobin 8.5 g/dL (12.2-16.2); Lymphocytes # 0.4 K/mm3 (0.7-4.5); Lymphocytes % 4.7 % (10-50); Mean Corpuscular HGB Conc 32.7 g/dL (31.8-35.4); Mean Corpuscular Hemoglobin 29.7 pg (27.0-31.2); Mean Corpuscular Volume 90.7 fl (81-99); Mean Platelet Volume 8.6 fl (7.4-10.4); Monocytes # 0.4 K/mm3 (0.1-1.0); Neutrophils # 7.4 K/mm3 (1.8-7.8); Neutrophils % 86.6 % (37.0-80.0); Platelet Count 260 K/mm3 (142-424); Red Blood Count 2.86 M/mm3 (4.20-5.40); Red Cell Distribution Width 22.9 % (11.5-17.5); White Blood Count 8.6 K/mm3 (4.8-10.8)
[2022-09-29 09:24] LABS: MANUAL DIFFERENTIAL MANUAL DIFFERENTIAL (MANUAL DIFF)
[2022-09-29 09:30] LABS: INR 4.37 (0.9-1.1); Prothrombin Time 43.4 seconds (10.1-12.5)
[2022-09-29 09:43] LABS: Anisocytosis 1+; Hypochromasia 1+; Lymphocytes % 2 % (10-50); Monocytes % 4 % (2-9); Neutrophils % 94 % (42-76); Ovalocytes 1+; Platelet Estimate Normal; Total Cells Counted 100
--- NOTE | 2022-09-29 11:47 | EXP.PHA.CONS ---
Pharmacy Consult Date: 09/29/22 Time: 11:48 Referring provider: DR. TOVAR Reason for Consult:: INR RESULT AND DOSE CHANGE Allergies Allergy/AdvReac Type Severity Reaction Status Date / Time codeine [CODEINE] Allergy Unknown nausea, Verified 09/08/22 13:36 swelling Corticosteroids Allergy Unknown Verified 09/08/22 13:36 (Glucocorticoids) [CORTICOSTEROIDS (GLUCOCORTICOIDS)] rosuvastatin [From CRESTOR] Allergy Unknown Verified 09/08/22 13:36 theophylline [From DAVID-DUR] Allergy Unknown Verified 09/08/22 13:36 Iodinated Contrast Media AdvReac Severe shuts Verified 09/08/22 13:36 [IODINATED CONTRAST- ORAL kidneys AND IV DYE] down and bleeding buprenorphine [From BUPRENEX] AdvReac Intermediate Nausea Verified 09/08/22 13:36 prednisone AdvReac Verified 09/08/22 13:36 Home Medications Medication Instructions Recorded Confirmed Type aspirin 81 mg tablet,delayed 81 mg PO DAILY HEART HEALTH 12/01/17 09/29/22 History release (Adult Low Dose Aspirin) oxycodone-acetaminophen 10 mg-325 1 tab PO TIDP PRN Moderate Pain 05/23/18 09/29/22 History mg tablet (Percocet) alprazolam 0.5 mg tablet (Xanax) 0.5 mg PO TIDP PRN Anxiety 11/29/19 09/29/22 History citalopram 40 mg tablet 40 mg PO DAILY Anxiety 03/31/21 09/29/22 History famotidine 20 mg tablet (Pepcid) 20 mg PO DAILYP PRN gerd 04/22/21 09/29/22 History levothyroxine 25 mcg tablet 25 mcg PO DAILYDM hypothyroidism 06/05/21 09/29/22 History dexlansoprazole 60 mg 60 mg PO DAILY acid reflux 06/06/21 09/29/22 History capsule,biphase delayed release ergocalciferol (vitamin D2) 1,250 50,000 units PO MONTHLY Supplement 06/06/21 09/29/22 History mcg (50,000 unit) capsule warfarin 5 mg tablet 5 mg PO DAILY mechanical valve 09/09/21 09/29/22 History calcitriol 0.25 mcg capsule 0.25 mcg PO Q48H Supplement 10/02/21 09/29/22 History metolazone 2.5 mg tablet 2.5 mg PO BID PRN fluid 10/02/21 09/29/22 History colchicine 0.6 mg capsule 0.6 mg PO DAILYP PRN gout 01/22/22 09/29/22 History (Mitigare) insulin glargine 100 60 units SQ DAILY Diabetes 02/22/22 09/29/22 History unit-lixisenatide 33 mcg/mL subcutaneous pen bumetanide 1 mg tablet 1 mg PO BIDL Fluid 03/07/22 09/29/22 History metoprolol succinate 50 mg 100 mg PO DAILY High blood pressure 03/07/22 09/29/22 History tablet,extended release 24 hr levalbuterol HCl 1.25 mg/3 mL 1.25 mg inhalation TID PRN COPD 03/16/22 09/29/22 History solution for nebulization blood sugar diagnostic (True #10 ea 05/21/22 09/08/22 History Metrix Glucose Test Strip) blood-glucose meter (True Metrix #1 ea 05/21/22 09/08/22 History Glucose Meter) lancets 26 gauge (Lancets,Ultra #100 ea 05/21/22 09/08/22 History Thin) magnesium 250 mg tablet 250 mg PO DAILY PRN SUPPLEMENT 05/21/22 09/29/22 History fluticasone propionate 110 1 inh inhalation BID shortness of 07/16/22 09/29/22 History mcg/actuation HFA aerosol inhaler air (Flovent HFA) spironolactone 25 mg tablet 25 mg PO BID Edema #60 tabs 07/17/22 09/29/22 Rx potassium chloride 20 mEq 20 meq PO BID Supplement 09/08/22 09/29/22 History tablet,extended release(part/cryst) New Prescriptions to Start Prescriptions: Height: 1.63 m Weight: 94.801 kg Laboratory Results:: Laboratory Results - last 24 hr 09/29/22 09:10: WBC 8.6, RBC 2.86 L, Hgb 8.5 L, Hct 25.9 L, MCV 90.7, MCH 29.7, MCHC 32.7, RDW 22.9 H, Plt Count 260, MPV 8.6, Neut % (Auto) 86.6 H, Lymph % (Auto) 4.7 L, Morehouse % (Auto) 5.0, Eos % (Auto) 3.3, Baso % (Auto) 0.4, Neut # (Auto) 7.4, Lymph # (Auto) 0.4 L, Morehouse # (Auto) 0.4, Eos # (Auto) 0.3, Baso # (Auto) 0.0, Total Counted 100, Neutrophils % (Manual) 94 H, Lymphocytes % (Manual) 2 L, Monocytes % (Manual) 4, Platelet Estimate Normal, Hypochromasia 1+, Anisocytosis 1+, Ovalocytes 1+ 09/29/22 09:10: PT 43.4 H, INR 4.37 H Medical History: Medical History (Updated 09/08/22 @ 14:06 by Celina Back APRN) Afib Afib Anemia Anemia
== END 2022-09-29 10:30 | disposition home or self-care (01) ==
LOC: INF 08:53
PROVIDERS: PCP Internal Medicine Adolescent Medicine; Visit Provider Internal Medicine Medical Oncology
DX: D64.9 Anemia, unspecified (principal); Z51.81 Encounter for therapeutic drug level monitoring; Z79.01 Long term (current) use of anticoagulants
CPT/HCPCS: 36591; 85007; 85025; 85610; J1642

== ENCOUNTER 2022-10-06 08:30 | Outpatient (CLI) | payer MEDICARE, MEDICAID, SELFPAY ==
[2022-10-06] VITALS (11 sets, daily range): BP systolic 101–131; BP diastolic 55–74; PULSE 71–88; RESP 16–18; TEMP 36.3–36.5; O2SAT 97–98; BMI 33.5
[2022-10-06 08:57] LABS: Basophils % 0.5 % (0.1-2.0); Eosinophils # 0.2 K/mm3 (0.0-0.4); Eosinophils % 3.4 % (0.1-12.0); Hematocrit 24.6 % (37.0-47.0); Hemoglobin 7.5 g/dL (12.2-16.2); Lymphocytes # 0.3 K/mm3 (0.7-4.5); Lymphocytes % 4.6 % (10-50); Mean Corpuscular HGB Conc 30.4 g/dL (31.8-35.4); Mean Corpuscular Hemoglobin 26.7 pg (27.0-31.2); Mean Corpuscular Volume 87.8 fl (81-99); Monocytes # 0.3 K/mm3 (0.1-1.0); Monocytes % 4.3 % (1.7-9.3); Neutrophils % 87.2 % (37.0-80.0); Platelet Count 311 K/mm3 (142-424); Red Cell Distribution Width 21.7 % (11.5-17.5); White Blood Count 6.9 K/mm3 (4.8-10.8)
[2022-10-06 08:58] LABS: MANUAL DIFFERENTIAL MANUAL DIFFERENTIAL (MANUAL DIFF)
[2022-10-06 09:24] LABS: Chloride 91 mmol/L (98-107); Potassium 3.8 mmoL/L (3.5-5.1); Sodium 137 mmol/L (136-145)
[2022-10-06 09:26] LABS: Alanine Aminotransferase 14 U/L (12-78); Alkaline Phosphatase 111 U/L (38-126); Anion Gap 16.8 mEq/L (5-15); Aspartate Amino Transferase 19 U/L (14-36); Bilirubin,Total 0.5 mg/dl (0.2-1.3); Blood Urea Nitrogen 35 mg/dl (7-17); Carbon Dioxide 33 mmol/L (22.0-30.0); Creatinine Clearance Estimated 60 mL/min (50-200); Estimated Glomerular Filt Rate 38 ml/min (>60); GFR (African American) 47 ML/MIN (>60); Iron 32 ug/dL (37-170)
[2022-10-06 09:27] LABS: Albumin Level 4.2 g/dl (3.5-5.0); Albumin/Globulin Ratio 1.7 (1.1-1.8); Calcium 9.2 mg/dl (8.4-10.2); Eosinophils % 1 % (0-3); Globulin 2.5 g/dL (1.3-3.2); Glucose 286 mg/dl (74-100); Hypochromasia 1+; Lymphocytes % 3 % (10-50); Monocytes % 2 % (2-9); Neutrophils % 94 % (42-76); Ovalocytes 1+; Platelet Estimate Normal; Total Cells Counted 100; Total Protein,Serum 6.7 g/dl (6.3-8.2)
--- NOTE | 2022-10-06 09:33 | PC.NURSE ---
0920-lab staff Crystal at pt chair side to witness blood being drawn from pts pac for type and crossmatch.
[2022-10-06 09:36] LABS: Total Iron Binding Capacity 438 ug/dL (265-497)
[2022-10-06 10:02] LABS: Ferritin 40.9 ng/ml (11.1-264)
[2022-10-06 10:50] LABS: INR 3.33 (0.9-1.1); Prothrombin Time 33.6 seconds (10.1-12.5)
== END 2022-10-06 13:52 | disposition home or self-care (01) ==
LOC: INF 08:31
PROVIDERS: PCP Internal Medicine Adolescent Medicine; Visit Provider Internal Medicine Medical Oncology
DX: D59.19 Other autoimmune hemolytic anemia (principal); Z95.2 Presence of prosthetic heart valve
CPT/HCPCS: 36430; 80053; 82728; 83540; 83550; 85007; 85025; 85610; 86850; J1642; P9016

== ENCOUNTER → 2022-10-12 08:42 | Outpatient (CLI) | payer MEDICARE, MEDICAID, SELFPAY ==
[2022-10-12 08:54] VITALS: BMI 34.3
[2022-10-12 09:19] LABS: Basophils % 0.3 % (0.1-2.0); Eosinophils # 0.2 K/mm3 (0.0-0.4); Hemoglobin 7.9 g/dL (12.2-16.2); Lymphocytes # 0.3 K/mm3 (0.7-4.5); Lymphocytes % 4.6 % (10-50); Mean Corpuscular HGB Conc 30.3 g/dL (31.8-35.4); Mean Corpuscular Hemoglobin 25.7 pg (27.0-31.2); Mean Corpuscular Volume 84.8 fl (81-99); Mean Platelet Volume 8.7 fl (7.4-10.4); Monocytes # 0.3 K/mm3 (0.1-1.0); Neutrophils # 6.4 K/mm3 (1.8-7.8); Platelet Count 291 K/mm3 (142-424); Red Blood Count 3.07 M/mm3 (4.20-5.40); Red Cell Distribution Width 21.1 % (11.5-17.5); White Blood Count 7.3 K/mm3 (4.8-10.8)
[2022-10-12 09:21] LABS: MANUAL DIFFERENTIAL MANUAL DIFFERENTIAL (MANUAL DIFF)
[2022-10-12 09:27] LABS: Chloride 94 mmol/L (98-107)
[2022-10-12 09:28] LABS: Potassium 3.7 mmoL/L (3.5-5.1); Sodium 139 mmol/L (136-145)
[2022-10-12 09:30] LABS: Alanine Aminotransferase 12 U/L (12-78); Aspartate Amino Transferase 20 U/L (14-36); Blood Urea Nitrogen 26 mg/dl (7-17); Creatinine Clearance Estimated 62 mL/min (50-200); Estimated Glomerular Filt Rate 38 ml/min (>60); GFR (African American) 47 ML/MIN (>60)
[2022-10-12 09:31] LABS: Albumin Level 4.2 g/dl (3.5-5.0); Albumin/Globulin Ratio 1.7 (1.1-1.8); Alkaline Phosphatase 93 U/L (38-126); Anion Gap 14.7 mEq/L (5-15); Bilirubin,Total 0.6 mg/dl (0.2-1.3); Calcium 9.5 mg/dl (8.4-10.2); Carbon Dioxide 34 mmol/L (22.0-30.0); Globulin 2.5 g/dL (1.3-3.2); Glucose 180 mg/dl (74-100); Total Protein,Serum 6.7 g/dl (6.3-8.2)
[2022-10-12 09:32] LABS: INR 4.59 (0.9-1.1)
[2022-10-12 09:38] LABS: Prothrombin Time 45.5 seconds (10.1-12.5)
[2022-10-12 09:52] LABS: Hypochromasia 1+; Lymphocytes % 10 % (10-50); Monocytes % 3 % (2-9); Neutrophils % 87 % (42-76); Ovalocytes 1+; Platelet Estimate Normal; Total Cells Counted 100
--- NOTE | 2022-10-12 15:15 | PC.NURSE ---
Patient was seen in ED today per instruction of Dr. Benson upon her appointment with Dr. Benson this am. Patient did not return to outpatient infusion for Injectafer as scheduled. Patient to return tomorrow for blood transfusion.
== END ==
PROVIDERS: PCP Internal Medicine Adolescent Medicine; Visit Provider Internal Medicine Medical Oncology
DX: D64.9 Anemia, unspecified (principal); Z79.01 Long term (current) use of anticoagulants
CPT/HCPCS: 36591; 80053; 85007; 85025; 85610

== ENCOUNTER 2022-10-12 10:27 | Emergency (ER) | payer MEDICARE, MEDICAID, SELFPAY ==
[2022-10-12] VITALS (8 sets, daily range): BP systolic 101–146; BP diastolic 62–88; PULSE 77–90; RESP 11–163; TEMP 37.1; O2SAT 91–98; BMI 34.7
--- NOTE | 2022-10-12 10:23 | ECG_ITS ---
APPROVED REPORT Exam: Resting ECG HR:88 bpm ECG Measurements Heart Rate 88 AXES QRSd 113 QRS 89 QT 417 T 74 QTc 462 Conclusion SUPRAVENTRICULAR RHYTHM LOW QRS VOLTAGE IN PRECORDIAL LEADS [QRS DEFLECTION < 1.0 mV IN CHEST LEADS] INCOMPLETE RIGHT BUNDLE BRANCH BLOCK [90+ ms QRS DURATION, TERMINAL R IN V1/V2, 40+ ms S IN I/aVL/V4/V5/V6] MODERATE ST DEPRESSION [0.05+ mV ST DEPRESSION] ABNORMAL ECG UNCONFIRMED REPORT Electronically signed by : Reji Castro MD 10/12/2022 19:43:01
--- NOTE | 2022-10-12 10:37 | XR_ITS ---
FINAL REPORT TECHNIQUE: Single view chest CLINICAL HISTORY: Midsternal chest pain COMPARISON: 08/23/2022 FINDINGS: A single view of the chest was obtained. The heart is enlarged. Patient is status post median sternotomy. A right chest port remains in place. There is stable, mild scarring/fibrosis. The lungs are otherwise clear. There is no pneumothorax. Osseous structures are unremarkable. IMPRESSION: No acute cardiopulmonary process. Reviewed, Interpreted and Dictated by Pravin Crespo III, MD Transcribed by Phylicia Walker Authenticated and [facility][1]
--- NOTE | 2022-10-12 11:01 | PC.NURSE ---
rad at BS for portable xray
[2022-10-12 11:05] LABS: Troponin I < 0.01 ng/ml (0.00-0.034)
--- NOTE | 2022-10-12 11:09 | HMH.EDGENADL ---
Discharge Plan Disposition Patient Disposition: Home, Self-Care Condition: Fair Prescriptions Prescriptions: New methocarbamol 500 mg tablet 500 mg PO TID PRN (Reason: muscle spasm) Qty: 14 0RF No Action aspirin [Adult Low Dose Aspirin] 81 mg tablet,delayed release (DR/EC) 81 mg PO DAILY oxycodone-acetaminophen [Percocet] 10-325 mg tablet 1 tab PO TIDP PRN (Reason: Moderate Pain) famotidine [Pepcid] 20 mg tablet 20 mg PO DAILYP PRN (Reason: gerd) Rx Instructions: AT DINNER TIME calcitriol 0.25 mcg capsule 0.25 mcg PO Q48H metolazone 2.5 mg tablet 2.5 mg PO BID PRN (Reason: fluid) colchicine [Mitigare] 0.6 mg capsule 0.6 mg PO DAILYP PRN (Reason: gout) (DME) blood-glucose meter [True Metrix Glucose Meter] Misc 1 each .ROUTE .MEDSUPPLY Qty: 1 Rx Instructions: As directed (DME) True Metrix Glucose Test Strip Strip 1 strip .ROUTE .MEDSUPPLY Qty: 10 Rx Instructions: As directed (DME) lancets [Lancets,Ultra Thin] 26 gauge misc 1 gauge .ROUTE .MEDSUPPLY Qty: 100 Rx Instructions: As directed fluticasone propionate [Flovent HFA] 110 mcg/actuation HFA aerosol inhaler 1 inh inhalation BID potassium chloride 20 mEq tablet,ER particles/crystals 20 meq PO BID alprazolam [Xanax] 0.5 mg tablet 0.5 mg PO TIDP PRN (Reason: Anxiety) citalopram 40 mg tablet 40 mg PO DAILY magnesium 250 mg tablet 250 mg PO DAILY PRN (Reason: SUPPLEMENT) spironolactone 25 mg tablet 25 mg PO BID Qty: 60 5RF levothyroxine 25 MCG tablet 25 mcg PO DAILYDM ergocalciferol (vitamin D2) 50,000 UNIT capsule 50,000 units PO MONTHLY Label Comments: TAKE 1 CAPSULE BY MOUTH ONCE MONTHLY dexlansoprazole 60 MG capsule,biphase delayed releas 60 mg PO DAILY Label Comments: TAKE (1) CAPSULE BY MOUTH ONCE A DAY. Rx Instructions: IN THE MORNING warfarin 5 mg tablet 5 mg PO DAILY Label Comments: Rx Instructions: DAILY EXCEPT FRIDAYS THEN TAKES ONLY 2.5MG insulin glargine-lixisenatide 3 ML insulin pen 60 units SQ DAILY metoprolol succinate 50 MG tablet 100 mg PO DAILY bumetanide 1 MG tablet 1 mg PO BIDL levalbuterol HCl 1.25 MG/3 ML solution for nebulization 1.25 mg IH TID PRN (Reason: COPD) Activity Restrictions/Add. Instructions Additional Instructions/Restrictions: You have been evaluated for chest pain. Likely due to inflammatory process, musculoskeletal pain. Likely worsened by your anemia today. It is very important that you follow-up tomorrow for your iron infusion and blood transfusion. Return to the emergency department at once for any new or worsening symptoms, chest pain, difficulty breathing, other concerns Clinical Impressions Clinical Impression: Anemia, Acute chest wall pain Instructions Patient Instructions: DI for Atypical Chest Pain Discharge ED Provider: Hodan Gallegos Adult HPI General Chief complaint: PAIN Stated complaint: chest pain Time Seen by Provider: 10/12/22 10:33 Mode of Arrival: Ambulatory Source of Information: Patient Limitations: No Limitations History of Present Illness HPI narrative: 57-year-old female presenting to the emergency department chest pain and anemia. Symptom started 3 to 4 days ago. She has an aching pain that is located in the upper portion of her chest, on the left side, near her shoulder. She has felt tired, fatigued. She has a history of autoimmune hemolytic anemia. She follows with Dr. Benson. Was at her office today, planning for a Venafer infusion when she described her chest pain. Was recommended to come to the emergency department for evaluation. Chest pain is constant, worse with motion. No associated nausea, diaphoresis, dyspnea. No radiation. She has had pain like this before, happens often when she needs a blood transfusion. Scheduled for red blood cell infusio
--- NOTE | 2022-10-12 11:11 | PC.NURSE ---
Called lab and advised they could run the labs on the blood that was already in the lab that had been sent up alistair
--- NOTE | 2022-10-12 12:23 | PC.NURSE ---
Rounded on pt at this time. Updated on POC and warm blanket provided.
[2022-10-12 12:44] LABS: Troponin I < 0.01 ng/ml (0.00-0.034)
--- NOTE | 2022-10-12 13:19 | HMH.PHAINT1 ---
Pharmacy Intervention Comments: PATIENT INR WAS 4.59 TODAY VIA VENIPUNCTURE. PATIENT INR WAS 3.33 LAST WEEK. PATIENT WAS SUPPOSED TO BE TAKING WARFARIN 2.5 MG ON MON/FRI; 5 MG ON SUN/WED/WED/RUBY/SAT. PATIENT HAS BEEN TAKING 2.5 MG ON MON, 5 MG ON SUN/WED/WED/RUBY/WED/SAT. HAVING PATIENT HOLD DOSE TODAY, THEN CHANGE DOSE TO WARFARIN 5 MG ON MON/WED/FRI; 2.5 MG ON SUN/WED/RUBY/SAT. PATIENT IS COMING IN NEXT WEEK TO OUTPATIENT INFUSION FOR BLOODWORK.
--- NOTE | 2022-10-12 13:56 | PC.NURSE ---
pt refused her meds said she would take her percocet she has at home
--- NOTE | 2022-10-12 14:06 | PC.NURSE ---
per nikolas mejia in dr. ramos office pt needs to be at infusion department by 0900 tomorrow morning. Romy states okay to leave pt port accessed it pt wants to leave it accessed r/t they will use it tomorrow for infusions
== END 2022-10-12 14:16 | disposition home or self-care (01) ==
PROVIDERS: Emergency Provider Emergency Medicine; PCP Internal Medicine Adolescent Medicine
DX: R07.89 Other chest pain (principal); D64.9 Anemia, unspecified; Z79.82 Long term (current) use of aspirin; Z79.899 Other long term (current) drug therapy; Z79.01 Long term (current) use of anticoagulants; F41.9 Anxiety disorder, unspecified; E03.9 Hypothyroidism, unspecified; K21.9 Gastro-esophageal reflux disease without esophagitis; Z95.2 Presence of prosthetic heart valve; M10.9 Gout, unspecified; J44.9 Chronic obstructive pulmonary disease, unspecified; Z88.6 Allergy status to analgesic agent
CPT/HCPCS: 36591; 71045; 80053; 84484; 85007; 85025; 85610; 93005; 99284

== ENCOUNTER 2022-10-13 08:29 | Outpatient (CLI) | payer MEDICARE, MEDICAID, SELFPAY ==
[2022-10-13] VITALS (11 sets, daily range): BP systolic 101–126; BP diastolic 58–85; PULSE 83–87; RESP 18; TEMP 36.2–36.5; O2SAT 98–100; BMI 33.5
== END 2022-10-13 14:05 | disposition home or self-care (01) ==
LOC: INF 08:31
PROVIDERS: PCP Internal Medicine Adolescent Medicine; Visit Provider Internal Medicine Medical Oncology
DX: D50.8 Other iron deficiency anemias (principal)
CPT/HCPCS: 36430; 86850; J1642; P9016

== ENCOUNTER 2022-10-14 09:44 | Outpatient (CLI) | payer MEDICARE, MEDICAID, SELFPAY ==
[2022-10-14 10:06] VITALS: BP 96/65; PULSE 65; RESP 18; O2SAT 97
[2022-10-14 11:04] VITALS: BP 120/90; PULSE 88; RESP 18; O2SAT 98
== END 2022-10-14 11:04 | disposition home or self-care (01) ==
LOC: INF 09:45
PROVIDERS: PCP Internal Medicine Adolescent Medicine; Visit Provider Internal Medicine Medical Oncology
DX: D50.8 Other iron deficiency anemias (principal)
CPT/HCPCS: 96365; J1439; J1642

== ENCOUNTER 2022-10-19 14:23 | Outpatient (CLI) | payer MEDICARE, MEDICAID, SELFPAY ==
[2022-10-19 14:29] VITALS: BMI 34.7
[2022-10-19 14:44] VITALS: BP 129/74; PULSE 84; RESP 18; O2SAT 94
[2022-10-19 15:19] LABS: Basophils % 0.6 % (0.1-2.0); Eosinophils # 0.4 K/mm3 (0.0-0.4); Eosinophils % 5.1 % (0.1-12.0); Lymphocytes # 0.6 K/mm3 (0.7-4.5); Lymphocytes % 7.3 % (10-50); Mean Corpuscular Hemoglobin 27.2 pg (27.0-31.2); Mean Corpuscular Volume 87.7 fl (81-99); Mean Platelet Volume 8.3 fl (7.4-10.4); Monocytes # 0.4 K/mm3 (0.1-1.0); Monocytes % 4.8 % (1.7-9.3); Neutrophils # 6.2 K/mm3 (1.8-7.8); Neutrophils % 82.2 % (37.0-80.0); Platelet Count 288 K/mm3 (142-424); Red Cell Distribution Width 23.3 % (11.5-17.5); White Blood Count 7.5 K/mm3 (4.8-10.8)
[2022-10-19 15:32] VITALS: BP 129/76; PULSE 85; RESP 18; O2SAT 94
== END 2022-10-19 15:33 | disposition home or self-care (01) ==
LOC: INF 14:24
PROVIDERS: PCP Internal Medicine Adolescent Medicine; Visit Provider Internal Medicine Medical Oncology
DX: D64.9 Anemia, unspecified (principal); D50.8 Other iron deficiency anemias
CPT/HCPCS: 85025; 96365; J1439; J1642

== ENCOUNTER 2022-10-27 08:56 | Outpatient (CLI) | payer MEDICARE, MEDICAID, SELFPAY ==
[2022-10-27 08:59] VITALS: BMI 34.7
[2022-10-27 09:26] LABS: Basophils # 0.1 K/mm3 (0-0.2); Basophils % 0.8 % (0.1-2.0); Eosinophils # 0.3 K/mm3 (0.0-0.4); Hemoglobin 9.5 g/dL (12.2-16.2); Lymphocytes # 0.3 K/mm3 (0.7-4.5); Lymphocytes % 3.7 % (10-50); Mean Corpuscular HGB Conc 30.6 g/dL (31.8-35.4); Mean Corpuscular Hemoglobin 28.1 pg (27.0-31.2); Mean Corpuscular Volume 91.8 fl (81-99); Mean Platelet Volume 8.4 fl (7.4-10.4); Monocytes # 0.4 K/mm3 (0.1-1.0); Monocytes % 4.5 % (1.7-9.3); Neutrophils # 6.6 K/mm3 (1.8-7.8); Platelet Count 254 K/mm3 (142-424); Red Blood Count 3.37 M/mm3 (4.20-5.40); Red Cell Distribution Width 23.9 % (11.5-17.5); White Blood Count 7.6 K/mm3 (4.8-10.8)
[2022-10-27 09:30] LABS: MANUAL DIFFERENTIAL MANUAL DIFFERENTIAL (MANUAL DIFF)
[2022-10-27 09:35] LABS: INR 4.59 (0.9-1.1)
[2022-10-27 09:37] LABS: Prothrombin Time 45.5 seconds (10.1-12.5)
[2022-10-27 09:49] LABS: Eosinophils % 1 % (0-3); Hypochromasia 2+; Lymphocytes % 7 % (10-50); Monocytes % 2 % (2-9); Neutrophils % 90 % (42-76); Ovalocytes 1+; Platelet Estimate Normal; Total Cells Counted 100
--- NOTE | 2022-10-27 13:18 | HMH.PHAINT1 ---
Pharmacy Intervention Comments: PATIENT INR WAS 4.59 TODAY VIA VENIPUNCTURE. PATIENT INR WAS 4.59 ON 10/12/22 AND DOSE WAS REDUCED TO WARFARIN 2.5 MG ON WED/WED/WED/WED; 5 MG ON WED/WED/WED. HAVING PATIENT HOLD DOSE TODAY AND REDUCE DOSE TO 2.5 MG DAILY. WILL RECHECK NEXT WEEK.
== END 2022-10-27 09:38 | disposition home or self-care (01) ==
LOC: INF 08:57
PROVIDERS: PCP Internal Medicine Adolescent Medicine; Visit Provider Internal Medicine Medical Oncology
DX: Z45.2 Encounter for adjustment and management of vascular access device (principal); D64.9 Anemia, unspecified; Z51.81 Encounter for therapeutic drug level monitoring; Z79.01 Long term (current) use of anticoagulants
CPT/HCPCS: 36591; 85007; 85025; 85610; J1642

== ENCOUNTER 2022-11-03 08:20 | Outpatient (CLI) | payer MEDICARE, MEDICAID, SELFPAY ==
[2022-11-03 08:25] VITALS: BMI 34.7
[2022-11-03 08:49] LABS: Basophils % 0.5 % (0.1-2.0); Eosinophils # 0.3 K/mm3 (0.0-0.4); Eosinophils % 4.9 % (0.1-12.0); Hematocrit 30.5 % (37.0-47.0); Hemoglobin 9.5 g/dL (12.2-16.2); Lymphocytes # 0.4 K/mm3 (0.7-4.5); Lymphocytes % 5.4 % (10-50); Mean Corpuscular HGB Conc 31.1 g/dL (31.8-35.4); Mean Corpuscular Volume 93.1 fl (81-99); Mean Platelet Volume 8.5 fl (7.4-10.4); Monocytes # 0.3 K/mm3 (0.1-1.0); Monocytes % 4.3 % (1.7-9.3); Neutrophils % 84.9 % (37.0-80.0); Platelet Count 256 K/mm3 (142-424); Red Blood Count 3.27 M/mm3 (4.20-5.40); Red Cell Distribution Width 23.2 % (11.5-17.5)
[2022-11-03 08:55] LABS: INR 2.25 (0.9-1.1); Prothrombin Time 23.2 seconds (10.1-12.5)
--- NOTE | 2022-11-04 14:21 | HMH.PHAINT1 ---
Pharmacy Intervention Comments: INR WAS 2.25 ON 11/03/22. PATIENT HAS BEEN TAKING WARFARIN 3 MG DAILY SINCE LAST WEEK. RECOMMENDED PATIENT TAKE WARFARIN 5 MG ON MON/WED/FRI; 2.5 MG ON WED/WED/RUBY/SAT.
== END 2022-11-03 08:57 | disposition home or self-care (01) ==
LOC: INF 08:21
PROVIDERS: PCP Internal Medicine Adolescent Medicine; Visit Provider Internal Medicine Medical Oncology
DX: D64.9 Anemia, unspecified (principal); Z51.81 Encounter for therapeutic drug level monitoring; Z79.01 Long term (current) use of anticoagulants
CPT/HCPCS: 36591; 85025; 85610; J1642

== ENCOUNTER 2022-11-10 09:35 | Outpatient (CLI) | payer MEDICARE, MEDICAID, SELFPAY ==
[2022-11-10 09:43] VITALS: BMI 34.7
[2022-11-10 10:19] LABS: Basophils # 0.1 K/mm3 (0-0.2); Basophils % 0.8 % (0.1-2.0); Eosinophils # 0.4 K/mm3 (0.0-0.4); Eosinophils % 6.2 % (0.1-12.0); Hematocrit 31.4 % (37.0-47.0); Lymphocytes # 0.4 K/mm3 (0.7-4.5); Lymphocytes % 6.2 % (10-50); Mean Corpuscular Hemoglobin 28.2 pg (27.0-31.2); Mean Corpuscular Volume 88.2 fl (81-99); Mean Platelet Volume 8.7 fl (7.4-10.4); Monocytes # 0.4 K/mm3 (0.1-1.0); Monocytes % 5.1 % (1.7-9.3); Neutrophils # 5.7 K/mm3 (1.8-7.8); Neutrophils % 81.8 % (37.0-80.0); Platelet Count 280 K/mm3 (142-424); Red Blood Count 3.56 M/mm3 (4.20-5.40); Red Cell Distribution Width 20.9 % (11.5-17.5); White Blood Count 6.9 K/mm3 (4.8-10.8)
[2022-11-10 10:53] LABS: Ferritin 71.5 ng/ml (11.1-264)
[2022-11-10 11:08] LABS: Iron 58 ug/dL (37-170)
[2022-11-10 11:18] LABS: Total Iron Binding Capacity 431 ug/dL (265-497)
== END 2022-11-10 10:37 | disposition home or self-care (01) ==
LOC: INF 09:37
PROVIDERS: PCP Internal Medicine Adolescent Medicine; Visit Provider Internal Medicine Medical Oncology
DX: D64.9 Anemia, unspecified (principal); D50.9 Iron deficiency anemia, unspecified; Z45.2 Encounter for adjustment and management of vascular access device
CPT/HCPCS: 36591; 82728; 83540; 83550; 85025; J1642

== ENCOUNTER 2022-11-17 08:35 | Outpatient (CLI) | payer MEDICARE, MEDICAID, SELFPAY ==
[2022-11-17 08:38] VITALS: BMI 34.7
[2022-11-17 08:51] LABS: Basophils # 0.1 K/mm3 (0-0.2); Basophils % 0.8 % (0.1-2.0); Eosinophils # 0.5 K/mm3 (0.0-0.4); Eosinophils % 7.2 % (0.1-12.0); Hematocrit 30.2 % (37.0-47.0); Hemoglobin 9.5 g/dL (12.2-16.2); Lymphocytes # 0.3 K/mm3 (0.7-4.5); Lymphocytes % 5.4 % (10-50); Mean Corpuscular HGB Conc 31.3 g/dL (31.8-35.4); Mean Corpuscular Volume 89.5 fl (81-99); Monocytes # 0.3 K/mm3 (0.1-1.0); Neutrophils % 81.5 % (37.0-80.0); Platelet Count 259 K/mm3 (142-424); Red Blood Count 3.38 M/mm3 (4.20-5.40); Red Cell Distribution Width 20.5 % (11.5-17.5); White Blood Count 6.2 K/mm3 (4.8-10.8)
[2022-11-17 09:06] LABS: INR 4.03 (0.9-1.1); Prothrombin Time 40.2 seconds (10.1-12.5)
== END 2022-11-17 09:14 | disposition home or self-care (01) ==
LOC: INF 08:36
PROVIDERS: PCP Internal Medicine Adolescent Medicine; Visit Provider Internal Medicine Medical Oncology
DX: Z45.2 Encounter for adjustment and management of vascular access device (principal); D64.9 Anemia, unspecified; Z79.01 Long term (current) use of anticoagulants
CPT/HCPCS: 36591; 85025; 85610; J1642

== ENCOUNTER 2022-11-25 09:49 | Outpatient (CLI) | payer MEDICARE, MEDICAID, SELFPAY ==
[2022-11-25 09:56] VITALS: BMI 34.7
[2022-11-25 10:08] LABS: Basophils # 0.1 K/mm3 (0-0.2); Basophils % 0.7 % (0.1-2.0); Eosinophils # 0.3 K/mm3 (0.0-0.4); Eosinophils % 3.9 % (0.1-12.0); Hematocrit 27.5 % (37.0-47.0); Hemoglobin 8.6 g/dL (12.2-16.2); Lymphocytes # 0.4 K/mm3 (0.7-4.5); Lymphocytes % 5.2 % (10-50); Mean Corpuscular HGB Conc 31.3 g/dL (31.8-35.4); Mean Corpuscular Hemoglobin 27.1 pg (27.0-31.2); Mean Corpuscular Volume 86.6 fl (81-99); Monocytes # 0.5 K/mm3 (0.1-1.0); Monocytes % 5.8 % (1.7-9.3); Neutrophils # 6.7 K/mm3 (1.8-7.8); Neutrophils % 84.5 % (37.0-80.0); Platelet Count 284 K/mm3 (142-424); Red Blood Count 3.17 M/mm3 (4.20-5.40); Red Cell Distribution Width 19.6 % (11.5-17.5); White Blood Count 7.9 K/mm3 (4.8-10.8)
[2022-11-25 10:20] LABS: INR 2.79 (0.9-1.1); Prothrombin Time 28.4 seconds (10.1-12.5)
== END 2022-11-25 10:15 | disposition home or self-care (01) ==
LOC: INF 09:50
PROVIDERS: PCP Internal Medicine Adolescent Medicine; Visit Provider Internal Medicine Medical Oncology
DX: D59.10 Autoimmune hemolytic anemia, unspecified (principal); Z51.81 Encounter for therapeutic drug level monitoring; Z79.01 Long term (current) use of anticoagulants; Z45.2 Encounter for adjustment and management of vascular access device
CPT/HCPCS: 36591; 85025; 85610; J1642

== ENCOUNTER 2022-12-01 09:05 | Outpatient (CLI) | payer MEDICARE, MEDICAID, SELFPAY ==
[2022-12-01] VITALS (11 sets, daily range): BP systolic 101–134; BP diastolic 55–79; PULSE 72–85; RESP 18–20; TEMP 36.2–36.4; O2SAT 96–97; BMI 34.7
[2022-12-01 09:34] LABS: Basophils % 0.5 % (0.1-2.0); Eosinophils # 0.3 K/mm3 (0.0-0.4); Eosinophils % 3.6 % (0.1-12.0); Hematocrit 26.3 % (37.0-47.0); Lymphocytes # 0.4 K/mm3 (0.7-4.5); MANUAL DIFFERENTIAL MANUAL DIFFERENTIAL (MANUAL DIFF); Mean Corpuscular HGB Conc 30.4 g/dL (31.8-35.4); Mean Corpuscular Hemoglobin 26.3 pg (27.0-31.2); Mean Corpuscular Volume 86.6 fl (81-99); Mean Platelet Volume 8.4 fl (7.4-10.4); Monocytes # 0.4 K/mm3 (0.1-1.0); Monocytes % 4.7 % (1.7-9.3); Neutrophils # 6.7 K/mm3 (1.8-7.8); Neutrophils % 86.2 % (37.0-80.0); Platelet Count 285 K/mm3 (142-424); Red Blood Count 3.03 M/mm3 (4.20-5.40); White Blood Count 7.7 K/mm3 (4.8-10.8)
[2022-12-01 09:43] LABS: Eosinophils % 3 % (0-3); Hypochromasia 1+; INR 2.65 (0.9-1.1); Lymphocytes % 5 % (10-50); Monocytes % 8 % (2-9); Neutrophils % 84 % (42-76); Ovalocytes 1+; Prothrombin Time 27.1 seconds (10.1-12.5); Total Cells Counted 100
[2022-12-01 09:44] LABS: Anisocytosis 1+; Platelet Estimate Normal
--- NOTE | 2022-12-01 10:07 | PC.NURSE ---
lab staff at pt chairside to witness RN obtaining blood from pac for type and crossmatch.
== END 2022-12-01 14:56 | disposition home or self-care (01) ==
LOC: INF 09:06
PROVIDERS: PCP Internal Medicine Adolescent Medicine; Visit Provider Internal Medicine Medical Oncology
DX: D50.8 Other iron deficiency anemias (principal)
CPT/HCPCS: 36430; 85007; 85025; 85610; 86850; J1642; P9016

== ENCOUNTER 2022-12-09 12:54 | Outpatient (CLI) | payer MEDICARE, MEDICAID, SELFPAY ==
[2022-12-09 12:58] VITALS: BMI 34.7
[2022-12-09 13:17] LABS: Basophils % 0.7 % (0.1-2.0); Eosinophils # 0.4 K/mm3 (0.0-0.4); Eosinophils % 6.3 % (0.1-12.0); Hematocrit 27.2 % (37.0-47.0); Hemoglobin 8.8 g/dL (12.2-16.2); Lymphocytes # 0.5 K/mm3 (0.7-4.5); Lymphocytes % 9.4 % (10-50); Mean Corpuscular HGB Conc 32.4 g/dL (31.8-35.4); Mean Corpuscular Hemoglobin 26.5 pg (27.0-31.2); Mean Platelet Volume 8.1 fl (7.4-10.4); Monocytes # 0.5 K/mm3 (0.1-1.0); Monocytes % 7.8 % (1.7-9.3); Neutrophils # 4.4 K/mm3 (1.8-7.8); Neutrophils % 75.9 % (37.0-80.0); Platelet Count 249 K/mm3 (142-424); Red Blood Count 3.32 M/mm3 (4.20-5.40); White Blood Count 5.8 K/mm3 (4.8-10.8)
[2022-12-09 13:45] LABS: INR 1.65 (0.9-1.1); Prothrombin Time 17.3 seconds (10.1-12.5)
[2022-12-09 14:04] LABS: Iron 30 ug/dL (37-170)
[2022-12-09 14:13] LABS: Total Iron Binding Capacity 372 ug/dL (265-497)
[2022-12-09 14:41] LABS: Ferritin 15.9 ng/ml (11.1-264)
== END 2022-12-09 13:24 | disposition home or self-care (01) ==
LOC: INF 12:55
PROVIDERS: PCP Internal Medicine Adolescent Medicine; Visit Provider Internal Medicine Medical Oncology
DX: D64.9 Anemia, unspecified (principal); Z51.81 Encounter for therapeutic drug level monitoring; Z79.01 Long term (current) use of anticoagulants
CPT/HCPCS: 36591; 82728; 83540; 83550; 85025; 85610; J1642

== ENCOUNTER 2022-12-13 10:39 | Emergency (ER) | payer MEDICARE, MEDICAID, SELFPAY ==
[2022-12-13] VITALS (9 sets, daily range): BP systolic 99–127; BP diastolic 60–81; PULSE 67–91; RESP 12–18; TEMP 36.4–36.5; O2SAT 89–100; BMI 34.3
[2022-12-13 10:58] LABS: POC Glucose,Bedside 85 (70-110)
--- NOTE | 2022-12-13 10:59 | XR_ITS ---
PROCEDURE INFORMATION: Exam: XR Chest Exam date and time: 12/13/2022 11:29 AM Age: 57 years old Clinical indication: Shortness of breath and other: Weakness; Additional info: Weakness, SOB TECHNIQUE: Imaging protocol: Radiologic exam of the chest. Views: 1 view. COMPARISON: CR XR CHEST PORTABLE 10/12/2022 11:13 AM FINDINGS: Tubes, catheters and devices: Central venous catheter tip projected at atrial caval junction grossly stable. Lungs: Unremarkable. No consolidation. Pleural spaces: Unremarkable. No pleural effusion. No pneumothorax. Heart/Mediastinum: Grossly stable cardiomegaly. Bones/joints: Unremarkable. IMPRESSION: Stable radiographs without acute findings identified.
--- NOTE | 2022-12-13 11:01 | HMH.EDGENADL ---
Discharge Plan Disposition Patient Disposition: Home, Self-Care Condition: Good Chief Complaint: Hyper/Hypoglycemia Prescriptions Prescriptions: No Action aspirin [Adult Low Dose Aspirin] 81 mg tablet,delayed release (DR/EC) 81 mg PO DAILY oxycodone-acetaminophen [Percocet] 10-325 mg tablet 1 tab PO TIDP PRN (Reason: Moderate Pain) famotidine [Pepcid] 20 mg tablet 20 mg PO DAILYP PRN (Reason: gerd) Rx Instructions: AT DINNER TIME calcitriol 0.25 mcg capsule 0.25 mcg PO Q48H metolazone 2.5 mg tablet 2.5 mg PO BID PRN (Reason: fluid) colchicine [Mitigare] 0.6 mg capsule 0.6 mg PO DAILYP PRN (Reason: gout) (DME) blood-glucose meter [True Metrix Glucose Meter] Misc 1 each .ROUTE .MEDSUPPLY Qty: 1 Rx Instructions: As directed (DME) True Metrix Glucose Test Strip Strip 1 strip .ROUTE .MEDSUPPLY Qty: 10 Rx Instructions: As directed (DME) lancets [Lancets,Ultra Thin] 26 gauge misc 1 gauge .ROUTE .MEDSUPPLY Qty: 100 Rx Instructions: As directed fluticasone propionate [Flovent HFA] 110 mcg/actuation HFA aerosol inhaler 1 inh inhalation BID potassium chloride 20 mEq tablet,ER particles/crystals 20 meq PO BID alprazolam [Xanax] 0.5 mg tablet 0.5 mg PO TIDP PRN (Reason: Anxiety) citalopram 40 mg tablet 40 mg PO DAILY magnesium 250 mg tablet 250 mg PO DAILY PRN (Reason: SUPPLEMENT) spironolactone 25 mg tablet 25 mg PO BID Qty: 60 5RF levothyroxine 25 MCG tablet 25 mcg PO DAILYDM ergocalciferol (vitamin D2) 50,000 UNIT capsule 50,000 units PO MONTHLY Label Comments: TAKE 1 CAPSULE BY MOUTH ONCE MONTHLY dexlansoprazole 60 MG capsule,biphase delayed releas 60 mg PO DAILY Label Comments: TAKE (1) CAPSULE BY MOUTH ONCE A DAY. Rx Instructions: IN THE MORNING warfarin 5 mg tablet 5 mg PO DAILY Label Comments: Rx Instructions: DAILY EXCEPT FRIDAYS THEN TAKES ONLY 2.5MG insulin glargine-lixisenatide 3 ML insulin pen 60 units SQ DAILY metoprolol succinate 50 MG tablet 100 mg PO DAILY bumetanide 1 MG tablet 1 mg PO BIDL levalbuterol HCl 1.25 MG/3 ML solution for nebulization 1.25 mg IH TID PRN (Reason: COPD) methocarbamol 500 mg tablet 500 mg PO TID PRN (Reason: muscle spasm) Qty: 14 0RF Referrals Follow up/Referrals: Reji Castro MD [Primary Care Provider] - See instructions Activity Restrictions/Add. Instructions Additional Instructions/Restrictions: Be sure to eat before shortly after using your insulin. Follow-up with your primary care provider, call tomorrow make appointment. Return emergency department if symptoms return or worsen. Clinical Impressions Clinical Impression: Hypoglycemia Instructions Patient Instructions: DI for Hyperglycemia -- Adult Discharge ED Provider: Travis Hodge General Adult HPI General Chief complaint: Hyper/Hypoglycemia Stated complaint: High BP nausea weakness Time Seen by Provider: 12/13/22 10:54 Mode of Arrival: Family Vehicle Source of Information: Patient and Spouse Limitations: No Limitations Description of Symptoms (Recalled from ER Triage Doc. by RN): Pt reports sudden onset of nausea, diaphoresis, weakness this am when she was preparing to go to [employer], endorses feels like my blood sugar went low so i drank some juice and ate peanut butter crackers , reports taking 60u insulin today, PMH t2dm, hemolytic anemia w regular transfusions, rheumatic heart disease History of Present Illness HPI narrative: Patient says she thinks she had an episode of hypoglycemia today. She states she used her usual 60 units of insulin this morning but had not eaten. An hour after her insulin she began feeling nauseated, sweating, weak, and unstable. She says that she was confused. She did not know where her blood sugar monitor was, so did not check her blood sugar. B
--- NOTE | 2022-12-13 11:07 | ECG_ITS ---
APPROVED REPORT Exam: Resting ECG HR:76 bpm ECG Measurements Heart Rate 76 AXES QRSd 112 QRS 98 QT 408 T 84 QTc 439 Conclusion ATRIAL FIBRILLATION BORDERLINE RIGHT AXIS DEVIATION [QRS AXIS > 90] INCOMPLETE RIGHT BUNDLE BRANCH BLOCK [90+ ms QRS DURATION, TERMINAL R IN V1/V2, 40+ ms S IN I/aVL/V4/V5/V6] ABNORMAL RHYTHM ECG UNCONFIRMED REPORT Electronically signed by : Reji Castro MD 12/14/2022 20:16:30
[2022-12-13 11:11] LABS: Chloride 103 mmol/L (98-107); Sodium 141 mmol/L (136-145)
[2022-12-13 11:12] LABS: Basophils # 0.1 K/mm3 (0-0.2); Basophils % 0.5 % (0.1-2.0); Eosinophils # 0.3 K/mm3 (0.0-0.4); Eosinophils % 2.8 % (0.1-12.0); Hemoglobin 8.7 g/dL (12.2-16.2); Lymphocytes # 0.5 K/mm3 (0.7-4.5); Lymphocytes % 4.8 % (10-50); Mean Corpuscular HGB Conc 32.3 g/dL (31.8-35.4); Mean Corpuscular Hemoglobin 26.5 pg (27.0-31.2); Mean Corpuscular Volume 82.1 fl (81-99); Mean Platelet Volume 8.2 fl (7.4-10.4); Monocytes # 0.4 K/mm3 (0.1-1.0); Monocytes % 4.4 % (1.7-9.3); Neutrophils # 8.9 K/mm3 (1.8-7.8); Neutrophils % 87.5 % (37.0-80.0); Platelet Count 270 K/mm3 (142-424); Red Blood Count 3.29 M/mm3 (4.20-5.40); Red Cell Distribution Width 19.7 % (11.5-17.5); White Blood Count 10.1 K/mm3 (4.8-10.8)
[2022-12-13 11:13] LABS: Microscopic, Urine URINE MICROSCOPIC (MICROSCOPIC)
[2022-12-13 11:13] LABS: Alanine Aminotransferase 17 U/L (12-78); Aspartate Amino Transferase 23 U/L (14-36); Blood Urea Nitrogen 32 mg/dl (7-17); Creatinine Clearance Estimated 67 mL/min (50-200); Estimated Glomerular Filt Rate 42 ml/min (>60); GFR (African American) 51 ML/MIN (>60)
[2022-12-13 11:14] LABS: Albumin Level 4.4 g/dl (3.5-5.0); Albumin/Globulin Ratio 1.5 (1.1-1.8); Alkaline Phosphatase 86 U/L (38-126); Bilirubin,Total 0.6 mg/dl (0.2-1.3); Calcium 9.2 mg/dl (8.4-10.2); Carbon Dioxide 30 mmol/L (22.0-30.0); Glucose 77 mg/dl (74-100); Total Protein,Serum 7.4 g/dl (6.3-8.2)
[2022-12-13 11:16] LABS: INR 2.08 (0.9-1.1); Prothrombin Time 21.6 seconds (10.1-12.5)
[2022-12-13 11:21] LABS: Appearance,Urine CLEAR (Clear); Bilirubin,Urine Negative (Negative); Blood, Urine Negative (Negative); Color,Urine YELLOW (Yellow); Glucose,Urine (UA) Negative (Negative); Ketones,Urine Negative (Negative); Leukocyte Esterase,Urine Negative (Negative); Nitrate,Urine Negative (Negative); Protein,Urine Negative (Negative); Urobilinogen,Urine 0.2 EU/dl (0.2)
[2022-12-13 11:21] LABS: MANUAL DIFFERENTIAL MANUAL DIFFERENTIAL (MANUAL DIFF)
[2022-12-13 11:26] LABS: Troponin I < 0.01 ng/ml (0.00-0.034)
[2022-12-13 11:48] LABS: Squamous Epithelial Cell,Urine Occasional #/hpf (0-5); WBC,Urine Occasional #/hpf (0-3)
[2022-12-13 11:51] LABS: Eosinophils % 2 % (0-3); Hypochromasia 1+; Lymphocytes % 6 % (10-50); Monocytes % 1 % (2-9); Neutrophils % 91 % (42-76); Platelet Estimate Normal; Total Cells Counted 100
--- NOTE | 2022-12-13 12:08 | PC.NURSE ---
pt given meal tray
[2022-12-13 13:28] LABS: POC Glucose,Bedside 210 (70-110)
[2022-12-13 14:30] LABS: Troponin I < 0.01 ng/ml (0.00-0.034)
== END 2022-12-13 14:47 | disposition home or self-care (01) ==
PROVIDERS: Emergency Provider Emergency Medicine; PCP Internal Medicine Adolescent Medicine
DX: E11.649 Type 2 diabetes mellitus with hypoglycemia without coma (principal); I48.91 Unspecified atrial fibrillation; D64.9 Anemia, unspecified; I25.10 Atherosclerotic heart disease of native coronary artery without angina pectoris; I50.9 Heart failure, unspecified; N18.9 Chronic kidney disease, unspecified; I13.0 Hypertensive heart and chronic kidney disease with heart failure and stage 1 through stage 4 chronic kidney disease, or unspecified chronic kidney disease; K21.9 Gastro-esophageal reflux disease without esophagitis; Z98.51 Tubal ligation status; Z98.61 Coronary angioplasty status; Z86.73 Personal history of transient ischemic attack (TIA), and cerebral infarction without residual deficits; Z86.79 Personal history of other diseases of the circulatory system; Z90.49 Acquired absence of other specified parts of digestive tract; Z82.49 Family history of ischemic heart disease and other diseases of the circulatory system; Z83.6 Family history of other diseases of the respiratory system
CPT/HCPCS: 71045; 80053; 81001; 82962; 84484; 85007; 85025; 85610; 93005; 99285; J1642

== ENCOUNTER → 2022-12-15 10:02 | Outpatient (CLI) | payer MEDICARE, MEDICAID, SELFPAY ==
--- NOTE | 2022-12-15 10:06 | MM_ITS ---
PROCEDURE INFORMATION: Exam: MG Bilateral Screening 3D Mammography Exam date and time: 12/15/2022 10:04 AM Age: 57 years old Clinical indication: Screening examination. Family history of breast carcinoma. TECHNIQUE: Imaging protocol: Bilateral Screening tomosynthesis and 2D mammography including computer-aided detection (CAD) when performed. COMPARISON: MG MM UNILATERAL MAMMOGRAM RT 07/13/2019 1:42 PM FINDINGS: MAMMOGRAPHY: Breast composition: The breasts are heterogeneously dense, which may obscure small masses. Mass: No suspicious masses. Architectural distortion: No suspicious distortion. Calcifications: No suspicious calcifications. Asymmetric density: None. Skin thickening: None. Axillary adenopathy: None. IMPRESSION: No mammographic evidence of malignancy. Annual screening is recommended unless otherwise clinically indicated. ASSESSMENT: BI-RADS Category 1: Negative
== END ==
PROVIDERS: PCP Internal Medicine Adolescent Medicine; Visit Provider Internal Medicine Adolescent Medicine
DX: Z12.31 Encounter for screening mammogram for malignant neoplasm of breast (principal)
CPT/HCPCS: 77063; 77067

== ENCOUNTER 2022-12-21 09:39 | Outpatient (CLI) | payer MEDICARE, MEDICAID, SELFPAY ==
[2022-12-21 09:48] VITALS: BMI 34.7
[2022-12-21 10:20] LABS: Basophils # 0.1 K/mm3 (0-0.2); Basophils % 0.7 % (0.1-2.0); Eosinophils # 0.3 K/mm3 (0.0-0.4); Eosinophils % 4.4 % (0.1-12.0); Hematocrit 25.7 % (37.0-47.0); Hemoglobin 8.2 g/dL (12.2-16.2); Lymphocytes # 0.5 K/mm3 (0.7-4.5); Lymphocytes % 7.4 % (10-50); Mean Corpuscular Hemoglobin 24.6 pg (27.0-31.2); Mean Corpuscular Volume 77.1 fl (81-99); Mean Platelet Volume 8.2 fl (7.4-10.4); Monocytes # 0.4 K/mm3 (0.1-1.0); Monocytes % 5.4 % (1.7-9.3); Neutrophils # 5.6 K/mm3 (1.8-7.8); Platelet Count 306 K/mm3 (142-424); Red Blood Count 3.33 M/mm3 (4.20-5.40); Red Cell Distribution Width 20.3 % (11.5-17.5); White Blood Count 6.8 K/mm3 (4.8-10.8)
[2022-12-21 10:26] VITALS: BP 120/71; PULSE 74; RESP 18; TEMP 36.4; O2SAT 99
[2022-12-21 10:26] LABS: INR 2.55 (0.9-1.1); Prothrombin Time 26.1 seconds (10.1-12.5)
[2022-12-21 11:15] VITALS: BP 124/75; PULSE 78; RESP 18; O2SAT 99
== END 2022-12-21 11:15 | disposition home or self-care (01) ==
LOC: INF 09:41
PROVIDERS: PCP Internal Medicine Adolescent Medicine; Visit Provider Internal Medicine Medical Oncology
DX: D50.9 Iron deficiency anemia, unspecified (principal); Z79.01 Long term (current) use of anticoagulants
CPT/HCPCS: 85025; 85610; 96365; J1439; J1642

== ENCOUNTER 2022-12-28 09:27 | Outpatient (CLI) | payer MEDICARE, MEDICAID, SELFPAY ==
[2022-12-28 09:33] VITALS: BMI 34.7
[2022-12-28 09:59] LABS: Basophils % 0.7 % (0.1-2.0); Eosinophils # 0.3 K/mm3 (0.0-0.4); Eosinophils % 5.1 % (0.1-12.0); Hematocrit 27.8 % (37.0-47.0); Hemoglobin 8.2 g/dL (12.2-16.2); Lymphocytes # 0.4 K/mm3 (0.7-4.5); Lymphocytes % 6.6 % (10-50); Mean Corpuscular HGB Conc 29.4 g/dL (31.8-35.4); Mean Corpuscular Hemoglobin 24.7 pg (27.0-31.2); Mean Corpuscular Volume 83.9 fl (81-99); Mean Platelet Volume 8.9 fl (7.4-10.4); Monocytes # 0.2 K/mm3 (0.1-1.0); Monocytes % 4.2 % (1.7-9.3); Neutrophils # 4.9 K/mm3 (1.8-7.8); Neutrophils % 83.5 % (37.0-80.0); Platelet Count 226 K/mm3 (142-424); Red Blood Count 3.31 M/mm3 (4.20-5.40); White Blood Count 5.9 K/mm3 (4.8-10.8)
[2022-12-28 10:05] VITALS: BP 115/65; PULSE 74; RESP 18; O2SAT 95
[2022-12-28 10:07] LABS: Red Cell Distribution Width 25.6 % (11.5-17.5)
[2022-12-28 10:15] LABS: INR 3.89 (0.9-1.1); Prothrombin Time 38.9 seconds (10.1-12.5)
[2022-12-28 10:36] VITALS: BP 120/66; PULSE 76; RESP 18; TEMP 36.4; O2SAT 95
== END 2022-12-28 10:36 | disposition home or self-care (01) ==
LOC: INF 09:27
PROVIDERS: PCP Internal Medicine Adolescent Medicine; Visit Provider Internal Medicine Medical Oncology
DX: D64.9 Anemia, unspecified (principal); Z51.81 Encounter for therapeutic drug level monitoring; Z79.01 Long term (current) use of anticoagulants; D59.10 Autoimmune hemolytic anemia, unspecified; Z45.2 Encounter for adjustment and management of vascular access device
CPT/HCPCS: 85025; 85610; 96365; J1439; J1642

== ENCOUNTER 2023-01-05 08:51 | Outpatient (CLI) | payer MEDICARE, MEDICAID, SELFPAY ==
[2023-01-05 09:02] VITALS: BMI 34.7
[2023-01-05 09:24] LABS: Basophils # 0.1 K/mm3 (0-0.2); Basophils % 0.9 % (0.1-2.0); Eosinophils # 0.3 K/mm3 (0.0-0.4); Eosinophils % 5.1 % (0.1-12.0); Hematocrit 28.1 % (37.0-47.0); Hemoglobin 8.6 g/dL (12.2-16.2); Lymphocytes # 0.4 K/mm3 (0.7-4.5); Lymphocytes % 6.4 % (10-50); Mean Corpuscular HGB Conc 30.6 g/dL (31.8-35.4); Mean Corpuscular Hemoglobin 28.3 pg (27.0-31.2); Mean Corpuscular Volume 92.7 fl (81-99); Mean Platelet Volume 9.2 fl (7.4-10.4); Monocytes # 0.3 K/mm3 (0.1-1.0); Monocytes % 4.9 % (1.7-9.3); Neutrophils # 5.1 K/mm3 (1.8-7.8); Neutrophils % 82.8 % (37.0-80.0); Platelet Count 214 K/mm3 (142-424); Red Blood Count 3.03 M/mm3 (4.20-5.40); White Blood Count 6.1 K/mm3 (4.8-10.8)
[2023-01-05 09:28] LABS: Chloride 101 mmol/L (98-107); Sodium 140 mmol/L (136-145)
[2023-01-05 09:29] LABS: Potassium 3.9 mmoL/L (3.5-5.1)
[2023-01-05 09:30] LABS: Red Cell Distribution Width 27.8 % (11.5-17.5)
[2023-01-05 09:31] LABS: Alanine Aminotransferase 19 U/L (12-78); Albumin Level 4.3 g/dl (3.5-5.0); Albumin/Globulin Ratio 1.6 (1.1-1.8); Alkaline Phosphatase 82 U/L (38-126); Anion Gap 10.9 mEq/L (5-15); Aspartate Amino Transferase 27 U/L (14-36); Bilirubin,Total 0.6 mg/dl (0.2-1.3); Blood Urea Nitrogen 28 mg/dl (7-17); Carbon Dioxide 32 mmol/L (22.0-30.0); Creatinine Clearance Estimated 63 mL/min (50-200); Estimated Glomerular Filt Rate 38 ml/min (>60); GFR (African American) 47 ML/MIN (>60); Globulin 2.7 g/dL (1.3-3.2)
[2023-01-05 09:32] LABS: Calcium 8.4 mg/dl (8.4-10.2); Glucose 202 mg/dl (74-100)
[2023-01-05 09:33] LABS: INR 1.81 (0.9-1.1); Prothrombin Time 18.9 seconds (10.1-12.5)
== END 2023-01-05 09:45 | disposition home or self-care (01) ==
LOC: INF 08:52
PROVIDERS: PCP Internal Medicine Adolescent Medicine; Visit Provider Internal Medicine Medical Oncology
DX: D64.9 Anemia, unspecified (principal); Z51.81 Encounter for therapeutic drug level monitoring; Z79.01 Long term (current) use of anticoagulants; Z45.2 Encounter for adjustment and management of vascular access device
CPT/HCPCS: 36591; 80053; 85025; 85610; J1642

== ENCOUNTER 2023-01-12 08:56 | Outpatient (CLI) | payer MEDICARE, MEDICAID, SELFPAY ==
[2023-01-12 09:01] VITALS: BMI 34.7
[2023-01-12 09:34] LABS: Basophils # 0.1 K/mm3 (0-0.2); Basophils % 0.9 % (0.1-2.0); Eosinophils # 0.4 K/mm3 (0.0-0.4); Eosinophils % 6.8 % (0.1-12.0); Hematocrit 30.7 % (37.0-47.0); Hemoglobin 9.4 g/dL (12.2-16.2); Lymphocytes # 0.3 K/mm3 (0.7-4.5); Lymphocytes % 5.1 % (10-50); Mean Corpuscular HGB Conc 30.5 g/dL (31.8-35.4); Mean Corpuscular Hemoglobin 27.5 pg (27.0-31.2); Mean Corpuscular Volume 90.3 fl (81-99); Mean Platelet Volume 7.8 fl (7.4-10.4); Monocytes # 0.5 K/mm3 (0.1-1.0); Neutrophils # 5.3 K/mm3 (1.8-7.8); Neutrophils % 80.3 % (37.0-80.0); Platelet Count 247 K/mm3 (142-424); Red Cell Distribution Width 24.3 % (11.5-17.5); White Blood Count 6.5 K/mm3 (4.8-10.8)
[2023-01-12 09:37] LABS: INR 2.29 (0.9-1.1); Prothrombin Time 23.6 seconds (10.1-12.5)
--- NOTE | 2023-01-12 11:23 | HMH.PHAINT1 ---
Pharmacy Intervention Comments: PATIENT INR 2.29 TODAY WITH VENIPUNCTURE WHILE IN OUTPATIENT INFUSION. INR IS INCREASING FROM LAST WEEK. RECOMMEND CONTINUING WITH WARFAIRN 5 MG ON WED/WED/WED; 2.5 MG ON WED/WED/RUBY/SAT.
== END 2023-01-12 09:44 | disposition home or self-care (01) ==
LOC: INF 08:57
PROVIDERS: PCP Internal Medicine Adolescent Medicine; Visit Provider Internal Medicine Medical Oncology
DX: D64.9 Anemia, unspecified (principal); Z51.81 Encounter for therapeutic drug level monitoring; Z79.01 Long term (current) use of anticoagulants; Z45.2 Encounter for adjustment and management of vascular access device
CPT/HCPCS: 36591; 85025; 85610; J1642

== ENCOUNTER 2023-01-18 08:47 | Outpatient (CLI) | payer MEDICARE, MEDICAID, SELFPAY ==
[2023-01-18 08:54] VITALS: BMI 34.7
[2023-01-18 09:38] LABS: Chloride 101 mmol/L (98-107); Sodium 137 mmol/L (136-145)
[2023-01-18 09:39] LABS: Potassium 4.4 mmoL/L (3.5-5.1)
[2023-01-18 09:41] LABS: Alanine Aminotransferase 19 U/L (12-78); Albumin Level 4.2 g/dl (3.5-5.0); Albumin/Globulin Ratio 1.6 (1.1-1.8); Alkaline Phosphatase 106 U/L (38-126); Anion Gap 9.4 mEq/L (5-15); Aspartate Amino Transferase 27 U/L (14-36); Bilirubin,Total 0.5 mg/dl (0.2-1.3); Blood Urea Nitrogen 31 mg/dl (7-17); Calcium 8.6 mg/dl (8.4-10.2); Carbon Dioxide 31 mmol/L (22.0-30.0); Creatinine Clearance Estimated 67 mL/min (50-200); Estimated Glomerular Filt Rate 42 ml/min (>60); GFR (African American) 51 ML/MIN (>60); Globulin 2.7 g/dL (1.3-3.2); Glucose 309 mg/dl (74-100); Iron 50 ug/dL (37-170); Total Protein,Serum 6.9 g/dl (6.3-8.2)
[2023-01-18 09:46] LABS: INR 3.26 (0.9-1.1); Prothrombin Time 32.9 seconds (10.1-12.5)
[2023-01-18 09:50] LABS: Basophils # 0.1 K/mm3 (0-0.2); Basophils % 0.8 % (0.1-2.0); Eosinophils # 0.4 K/mm3 (0.0-0.4); Hematocrit 27.7 % (37.0-47.0); Lymphocytes # 0.3 K/mm3 (0.7-4.5); Lymphocytes % 5.1 % (10-50); Mean Corpuscular HGB Conc 32.4 g/dL (31.8-35.4); Mean Corpuscular Hemoglobin 28.9 pg (27.0-31.2); Mean Corpuscular Volume 89.3 fl (81-99); Mean Platelet Volume 8.1 fl (7.4-10.4); Monocytes # 0.3 K/mm3 (0.1-1.0); Monocytes % 5.1 % (1.7-9.3); Neutrophils # 4.9 K/mm3 (1.8-7.8); Platelet Count 246 K/mm3 (142-424); Red Blood Count 3.11 M/mm3 (4.20-5.40); Red Cell Distribution Width 23.1 % (11.5-17.5); Total Iron Binding Capacity 418 ug/dL (265-497)
[2023-01-18 10:19] LABS: Ferritin 43.3 ng/ml (11.1-264)
[2023-01-18 11:32] LABS: Chol/HDL Ratio 5.9 (1-3.5); Cholesterol 129 mg/dl (140-200); HDL Cholesterol 22 mg/dl (40-60); Triglycerides 196 mg/dl (30-150); VLDL Cholesterol 39 mg/dL (0-40)
[2023-01-18 11:38] LABS: Hemoglobin A1C 5.7 % (4.0-6.0)
[2023-01-18 11:43] LABS: Direct LDL Cholesterol 77.99 mg/dL (100-129)
--- NOTE | 2023-01-19 11:29 | HMH.PHAINT1 ---
Pharmacy Intervention Comments: INR WAS 3.26 TODAY IN OUTPATIENT INFUSION. RECOMMEND CONTINUING WITH WARFARIN 5 MG ON MON/WED/FRI; 2.5 MG ON WED/WED/RUBY/SAT.
== END 2023-01-18 12:45 | disposition home or self-care (01) ==
LOC: INF 08:48
PROVIDERS: PCP Internal Medicine Adolescent Medicine; Visit Provider Internal Medicine Medical Oncology
DX: Z45.2 Encounter for adjustment and management of vascular access device (principal); D50.9 Iron deficiency anemia, unspecified; E11.9 Type 2 diabetes mellitus without complications; I11.0 Hypertensive heart disease with heart failure; Z79.01 Long term (current) use of anticoagulants; Z51.81 Encounter for therapeutic drug level monitoring; Z79.4 Long term (current) use of insulin
CPT/HCPCS: 36591; 80053; 80061; 82728; 83036; 83540; 83550; 85025; 85610; J1642

== ENCOUNTER → 2023-01-18 11:03 | Outpatient (CLI) | payer MEDICARE, MEDICAID, SELFPAY | PROVIDERS: Visit Provider Nurse Practitioner | DX: Z45.2 Encounter for adjustment and management of vascular access device (principal) | CPT/HCPCS: J1642 ==

== ENCOUNTER 2023-01-26 10:02 | Outpatient (CLI) | payer MEDICARE, MEDICAID, SELFPAY ==
[2023-01-26 10:06] VITALS: BMI 34.7
[2023-01-26 10:23] LABS: Basophils # 0.1 K/mm3 (0-0.2); Basophils % 0.8 % (0.1-2.0); Eosinophils # 0.4 K/mm3 (0.0-0.4); Eosinophils % 5.2 % (0.1-12.0); Hematocrit 28.4 % (37.0-47.0); Lymphocytes # 0.4 K/mm3 (0.7-4.5); Mean Corpuscular HGB Conc 31.6 g/dL (31.8-35.4); Mean Corpuscular Hemoglobin 26.9 pg (27.0-31.2); Mean Corpuscular Volume 85.1 fl (81-99); Mean Platelet Volume 8.6 fl (7.4-10.4); Monocytes # 0.4 K/mm3 (0.1-1.0); Monocytes % 5.7 % (1.7-9.3); Neutrophils # 6.4 K/mm3 (1.8-7.8); Neutrophils % 83.3 % (37.0-80.0); Platelet Count 305 K/mm3 (142-424); Red Blood Count 3.34 M/mm3 (4.20-5.40); Red Cell Distribution Width 21.7 % (11.5-17.5); White Blood Count 7.7 K/mm3 (4.8-10.8)
--- NOTE | 2023-01-26 10:37 | PC.NURSE ---
1037-pt hgb 9.0; right chest pac capped with heparin and d/c; pt d/c home and to return next week
[2023-01-26 10:42] LABS: INR 3.26 (0.9-1.1); Prothrombin Time 32.9 seconds (10.1-12.5)
== END 2023-01-26 10:38 | disposition home or self-care (01) ==
LOC: INF 10:03
PROVIDERS: PCP Internal Medicine Adolescent Medicine; Visit Provider Internal Medicine Medical Oncology
DX: D64.9 Anemia, unspecified (principal); Z51.81 Encounter for therapeutic drug level monitoring; Z79.01 Long term (current) use of anticoagulants
CPT/HCPCS: 36591; 85025; 85610; J1642

== ENCOUNTER 2023-02-02 09:21 | Outpatient (CLI) | payer MEDICARE, MEDICAID, SELFPAY ==
[2023-02-02 09:24] VITALS: BMI 34.7
[2023-02-02 09:42] LABS: Basophils % 0.4 % (0.1-2.0); Eosinophils # 0.3 K/mm3 (0.0-0.4); Eosinophils % 3.4 % (0.1-12.0); Hematocrit 25.5 % (37.0-47.0); Hemoglobin 7.7 g/dL (12.2-16.2); Lymphocytes # 0.5 K/mm3 (0.7-4.5); Lymphocytes % 5.4 % (10-50); Mean Corpuscular HGB Conc 30.3 g/dL (31.8-35.4); Mean Corpuscular Hemoglobin 25.5 pg (27.0-31.2); Mean Platelet Volume 8.8 fl (7.4-10.4); Monocytes # 0.4 K/mm3 (0.1-1.0); Monocytes % 5.1 % (1.7-9.3); Neutrophils # 7.4 K/mm3 (1.8-7.8); Neutrophils % 85.6 % (37.0-80.0); Platelet Count 297 K/mm3 (142-424); Red Blood Count 3.03 M/mm3 (4.20-5.40); Red Cell Distribution Width 21.9 % (11.5-17.5); White Blood Count 8.7 K/mm3 (4.8-10.8)
[2023-02-02 09:43] LABS: MANUAL DIFFERENTIAL MANUAL DIFFERENTIAL (MANUAL DIFF)
--- NOTE | 2023-02-02 10:10 | PC.NURSE ---
1010-melita from lab here to witness type and screen
[2023-02-02 10:14] LABS: Lymphocytes % 6 % (10-50); Monocytes % 2 % (2-9); Neutrophils % 92 % (42-76); Total Cells Counted 100
[2023-02-02 10:50] LABS: Hypochromasia 1+; Platelet Estimate Normal
--- NOTE | 2023-02-02 11:18 | PC.NURSE ---
1118-m.ro called to notify us that blood needed to be reran for possible antibodies;will keep us updated
--- NOTE | 2023-02-02 12:55 | PC.NURSE ---
1255-pt d/c home and will return tomorrow for blood transfusion;left right chest pac accessed;flushed with ns;and capped with heparin;pt had antibodies and lab has to order blood from [facility]
== END 2023-02-02 12:55 | disposition home or self-care (01) ==
LOC: INF 09:22
PROVIDERS: PCP Internal Medicine Adolescent Medicine; Visit Provider Internal Medicine Medical Oncology
DX: Z45.2 Encounter for adjustment and management of vascular access device (principal); D50.9 Iron deficiency anemia, unspecified
CPT/HCPCS: 36591; 85007; 85025; 86850; 86870; J1642

== ENCOUNTER 2023-02-03 08:19 | Outpatient (CLI) | payer MEDICARE, MEDICAID, SELFPAY ==
[2023-02-03] VITALS (10 sets, daily range): BP systolic 117–149; BP diastolic 75–89; PULSE 76–79; RESP 18; TEMP 36.2–36.6; O2SAT 97–98
== END 2023-02-03 12:00 | disposition home or self-care (01) ==
LOC: INF 08:19
PROVIDERS: PCP Internal Medicine Adolescent Medicine; Visit Provider Internal Medicine Medical Oncology
DX: D50.8 Other iron deficiency anemias (principal); Z45.2 Encounter for adjustment and management of vascular access device
CPT/HCPCS: 36430; J1642; P9016

== ENCOUNTER → 2023-02-05 06:15 | Outpatient (CLI) | payer MEDICARE, MEDICAID, SELFPAY ==
--- NOTE | 2023-02-05 06:21 | NM_ITS ---
APPROVED REPORT Exam: Nuclear Stress Test Indication: chest pain..short of breath..fatigue Patient Location: Outpatient Stress Tech: Saima Juarez [place] Tech:JOE Mir RT(R)(N) Ht: 5 ft 4 in Wt: 205 lbs Bra Size: xl HR: 68 bpm BP: 117/61 mmHg BSA: 1.98 m2 TID: 1.24 BMI: 35.1 History: chest pain..short of breath..fatigue Procedure: Patient received 0.4 mg of intravenous Lexiscan, resting heart rate 68 bpm, resting blood pressure 117/61 mmHg, with Lexiscan maximum heart rate achieved was 82 bpm which is 85 % of the maximum predicted heart rate and blood pressure was 135/74 mmHg. With Lexiscan, patient denied any complaint of chest pain. Electrocardiogram Resting electrocardiogram shows atrial fibrillation, with Lexiscan less than 1.[address] segment depression noted from the baseline EKG. The EKG portion of the Lexiscan is nondiagnostic. Cardiac Stress and Resting SPECT Images: Cardiac Stress and Resting SPECT images were obtained using technetium 99m Myoview 31.6 mCi stress and 10.67 mCi at rest. Gated SPECT analysis of segmental wall motion and calculation of the ejection fraction also done. Prone images were also obtained. Cardiac prone images show uniform myocardial activity without segmental perfusion abnormality, computer derived ejection fraction is 33%, however during the study patient was in atrial fibrillation which may underestimate the ejection fraction. Right ventricle is normal size and contractility. Conclusion: 1. The EKG portion of the Lexiscan is nondiagnostic. 2. No scintigraphic evidence of reversible ischemia seen, computer derived ejection fraction 33% however during the study patient was in atrial fibrillation which may underestimate the ejection fraction, right ventricle is normal size and contractility. 3. Likely normal Lexiscan Myoview study. Electronically signed by : Pedro Jacobsen MD 02/05/2023 15:27:29
--- NOTE | 2023-02-05 08:17 | CA_ITS ---
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: Malini Del Cid RVT Ht: 5 ft 4 in Wt: 205lbs BSA: 1.98 BP: 132/93 mmHg Indications: CP,SOA,A-FIB,MECH MV,CAD,CHF,COPD,HTN,HLD TDS-PT FACTORS 2D Dimensions LVOT 2.10 cm (M/F) 1.5-2.5 LA Volume 139.00 mL LA Volume Index 70.20 mL/m2 (M/F) 16-34 M-Mode Dimensions RVDd 4.36 cm (0.9-2.6) LA Diam 5.72 cm (1.9-4.0) LVDd 5.71 cm (3.5-5.7) Ao Diam 2.79 cm (2.0-3.7) LVDs 4.36 cm (3.5-5.7) IVSd 0.65 cm (0.6-1.1) PWd 0.65 cm (0.6-1.1) EF (Teich) 46.60% FS 23.60% EDV (Teich) 160.70 mL TAPSE 1.37 (<1.7) ESV (Teich) 85.80 mL LV Diastology MED E' 6.90 (< 7 cm/sec) LAT E' 7.60 (<10 cm/sec) Aortic Valve LVOT Max 73.00 (70-110 cm/s) LVOT VTI 15.32 cm AoV Peak Jak. 202.00 (50-130 cm/s) AO Peak GR. 16.30 mmHg AO Mean GR. 7.90 (<5 mmHg) AO VTI 38.49 (18-25 cm) CLAIR (VTI) 1.38 (2.5-4.5 cm2) Mitral Valve MV Mean Gr. 6.40 (<2mmHg) MV PHT 80.00 ms Pulmonary Valve PV Peak Velocity 74.00 (50-150 cm/s) Tricuspid Valve TR P. Velocity 293.00 cm/s RAP Estimate 10.00 mmHg RVSP 44.30 mmHg Left Ventricle Technically difficult study because of the patient factors and poor acoustic windows. Left atrium is moderately enlarged, left ventricle is normal size, estimated ejection fraction 40%, there is abnormal septal motion, diastolic parameters are inconclusive. Right Ventricle Right atrium and right ventricle moderately enlarged, contractility of the right ventricle is preserved. Aortic Valve Aortic valve is minimally thickened and calcified without Doppler evidence of aortic stenosis or aortic insufficiency. Mitral Valve There is mechanical prosthetic valve noted in the mitral position, the valve is well-seated, the mean gradient across the valve is 4.6 mmHg, valve area is 3.28 square centimeters. There is no significant mitral regurgitation. Tricuspid Valve Tricuspid valve is minimally thickened, there is moderate to severe tricuspid regurgitation, calculated right ventricular systolic pressure is 44 mmHg. Pulmonic Valve Pulmonic valve is poorly visualized. Great Vessels Aortic root is normal size. Inferior vena cava is dilated with no significant inspiratory collapse. Pericardium No significant pericardial effusion noted. Conclusion 1. Biatrial enlargement, normal left ventricular size, estimated ejection fraction 40%, there is abnormal septal motion, diastolic parameters are inconclusive. 2. Moderately enlarged right ventricle with normal contractility. 3. Normal functioning mechanical prosthetic valve in the mitral position without mitral inflow obstruction or mitral regurgitation. 4. Moderate to severe tricuspid regurgitation, calculated right ventricular systolic pressure is 44 mmHg. 5. Inferior vena cava is dilated without significant inspiratory collapse. 6. No significant pericardial effusion noted. Electronically signed by : Pedro Jacobsen MD 02/05/2023 11:17:10
--- NOTE | 2023-02-05 10:16 | CA_ITS ---
APPROVED REPORT Exam: Pharmacologic Technologist: Saima Sagastume, Ht: 5 ft 4 in Wt: 205 lbs BSA: 1.98 m2 HR: 69 bpm BP: 117/61 mmHg Medical History Medications: Levothyroxine,,,,, Aspirin,,,,, Warfarin,,,,, Xanax,,,,, Citalopram,,,,, Magnesium,,,,, Esomeprazole,,,,, Metolazone,,,,, Vitamin D2,,,,, SpirOnolactone,,,,, PEPcid,,,,, Flovent,,,,, Stress Test Details Test: [place] Reason for pharmacologic stress test: physical limitation. HR Resting HR: 68 bpm Max Heart Rate (APMHR): 161.456016 bpm Max HR Achieved: 82 bpm Target HR (85% APMHR): 136.822974 bpm % of APMHR: 50.93 Recovery HR: 59 bpm BP Resting BP: 117/61 mmHg Max BP: 135/74 mmHg Recovery BP: 122.0/68.0 mmHg ECG Resting ECG: A. fib with CVR Clinical Reason for Termination: Completed Protocol Exercise duration: 04:03 min Highest Stage Achieved: Exercise capacity: 1.0 METs Stress ECG Conclusion Symptoms: No CP Arrhythmias/Ectopy: None ST-T Changes: <1.5mm ST Segment changes Conclusion: Non-Diagnostic Test Summary REST . . . . . . . Resting REST 34:59 . . 68 . 117/ 61 . . Stage 1 01:00 . . 76 . . . . Stage 2 01:00 . . 79 . 113/ 61 . . Stage 3 01:00 . . 79 . 123/ 63 . . Stage 4 01:00 . . 74 . 135/ 74 . . Stage 4 01:03 . . 73 . 135/ 74 . Stop exercise at 04:03 RECOVERY 01:00 . . 69 . . . . RECOVERY 01:46 . . 59 . 122/ 66 . . Electronically signed by : Pedro Jacobsen MD 02/05/2023 11:09:37
== END ==
LOC: RAD 06:15
PROVIDERS: PCP Internal Medicine Adolescent Medicine; Visit Provider Nurse Practitioner
DX: E10.9 Type 1 diabetes mellitus without complications (principal); E78.2 Mixed hyperlipidemia; I07.1 Rheumatic tricuspid insufficiency; I11.0 Hypertensive heart disease with heart failure; I50.33 Acute on chronic diastolic (congestive) heart failure; N18.1 Chronic kidney disease, stage 1; N18.4 Chronic kidney disease, stage 4 (severe); R06.00 Dyspnea, unspecified; Z95.2 Presence of prosthetic heart valve; I20.8 Other forms of angina pectoris; Z79.4 Long term (current) use of insulin
CPT/HCPCS: 78452; 93017; 93306; A9502; J2785

== ENCOUNTER 2023-02-08 09:41 | Outpatient (CLI) | payer MEDICARE, MEDICAID, SELFPAY ==
[2023-02-08 09:58] VITALS: BMI 34.7
[2023-02-08 10:18] LABS: Basophils # 0.1 K/mm3 (0-0.2); Basophils % 0.8 % (0.1-2.0); Eosinophils # 0.3 K/mm3 (0.0-0.4); Eosinophils % 3.8 % (0.1-12.0); Hematocrit 26.6 % (37.0-47.0); Hemoglobin 8.3 g/dL (12.2-16.2); Lymphocytes # 0.4 K/mm3 (0.7-4.5); Lymphocytes % 5.4 % (10-50); Mean Corpuscular HGB Conc 31.1 g/dL (31.8-35.4); Mean Corpuscular Hemoglobin 24.7 pg (27.0-31.2); Mean Corpuscular Volume 79.4 fl (81-99); Mean Platelet Volume 8.9 fl (7.4-10.4); Monocytes # 0.5 K/mm3 (0.1-1.0); Monocytes % 6.1 % (1.7-9.3); Neutrophils # 6.5 K/mm3 (1.8-7.8); Neutrophils % 83.9 % (37.0-80.0); Platelet Count 281 K/mm3 (142-424); Red Blood Count 3.35 M/mm3 (4.20-5.40); Red Cell Distribution Width 20.6 % (11.5-17.5); White Blood Count 7.7 K/mm3 (4.8-10.8)
[2023-02-08 11:47] LABS: PHA INR Fingerstick 2.9 (0.9-1.1)
== END 2023-02-08 10:44 | disposition home or self-care (01) ==
LOC: INF 09:42
PROVIDERS: Internal Medicine Medical Oncology; PCP Internal Medicine Adolescent Medicine; Visit Provider Internal Medicine Adolescent Medicine
DX: D64.9 Anemia, unspecified (principal); Z51.81 Encounter for therapeutic drug level monitoring; Z79.01 Long term (current) use of anticoagulants
CPT/HCPCS: 36591; 85025; 85610; 99211; G0463; J1642

== ENCOUNTER 2023-02-09 15:29 | Emergency (ER) | payer MEDICARE, MEDICAID, SELFPAY ==
--- NOTE | 2023-02-09 15:32 | ECG_ITS ---
APPROVED REPORT Exam: Resting ECG HR:75 bpm ECG Measurements Heart Rate 75 AXES QRSd 113 QRS 81 QT 436 T 111 QTc 465 Conclusion ATRIAL FIBRILLATION LOW QRS VOLTAGE IN PRECORDIAL LEADS [QRS DEFLECTION < 1.0 mV IN CHEST LEADS] INCOMPLETE RIGHT BUNDLE BRANCH BLOCK [90+ ms QRS DURATION, TERMINAL R IN V1/V2, 40+ ms S IN I/aVL/V4/V5/V6] MINIMAL ST DEPRESSION [0.025+ mV ST DEPRESSION] ABNORMAL RHYTHM ECG UNCONFIRMED REPORT Electronically signed by : Reji Castro MD 02/12/2023 16:44:10
[2023-02-09 15:36] VITALS: BP 95/54; PULSE 76; RESP 17; O2SAT 96; BMI 34.7
--- NOTE | 2023-02-09 15:44 | XR_ITS ---
FINAL REPORT TECHNIQUE: Chest PA & Lateral CLINICAL HISTORY: Precordial chest pain COMPARISON: 12/13/2022 FINDINGS: 2 views of the chest were performed. Sternotomy wires are present. A chest port is present. There is moderate cardiomegaly. The mediastinum is within normal limits. The lungs are clear. There are no pleural effusions. There is no pneumothorax. The bony thorax appears intact. IMPRESSION: No acute cardiopulmonary process. Reviewed, Interpreted and Dictated by Urbano Gracia MD Transcribed by Namita Fields Authenticated and [facility]
[2023-02-09 15:53] LABS: Basophils # 0.1 K/mm3 (0-0.2); Basophils % 0.5 % (0.1-2.0); Eosinophils # 0.3 K/mm3 (0.0-0.4); Eosinophils % 3.5 % (0.1-12.0); Hematocrit 27.7 % (37.0-47.0); Hemoglobin 8.6 g/dL (12.2-16.2); Lymphocytes # 0.6 K/mm3 (0.7-4.5); Lymphocytes % 6.5 % (10-50); Mean Corpuscular Hemoglobin 24.8 pg (27.0-31.2); Mean Corpuscular Volume 80.2 fl (81-99); Mean Platelet Volume 8.3 fl (7.4-10.4); Monocytes # 0.5 K/mm3 (0.1-1.0); Monocytes % 5.9 % (1.7-9.3); Neutrophils # 7.7 K/mm3 (1.8-7.8); Neutrophils % 83.6 % (37.0-80.0); Platelet Count 335 K/mm3 (142-424); Red Blood Count 3.46 M/mm3 (4.20-5.40); Red Cell Distribution Width 21.1 % (11.5-17.5); White Blood Count 9.2 K/mm3 (4.8-10.8)
[2023-02-09 15:59] LABS: Chloride 92 mmol/L (98-107)
[2023-02-09 16:00] LABS: Sodium 135 mmol/L (136-145)
--- NOTE | 2023-02-09 16:01 | HMH.EDGENADL ---
Discharge Plan Disposition Patient Disposition: Home, Self-Care Prescriptions Prescriptions: No Action aspirin [Adult Low Dose Aspirin] 81 mg tablet,delayed release (DR/EC) 81 mg PO DAILY oxycodone-acetaminophen [Percocet] 10-325 mg tablet 1 tab PO TIDP PRN (Reason: Moderate Pain) famotidine [Pepcid] 20 mg tablet 20 mg PO DAILYP PRN (Reason: gerd) Rx Instructions: AT DINNER TIME calcitriol 0.25 mcg capsule 0.25 mcg PO Q48H colchicine [Mitigare] 0.6 mg capsule 0.6 mg PO DAILYP PRN (Reason: gout) (DME) blood-glucose meter [True Metrix Glucose Meter] Misc 1 each .ROUTE .MEDSUPPLY Qty: 1 Rx Instructions: As directed (DME) True Metrix Glucose Test Strip Strip 1 strip .ROUTE .MEDSUPPLY Qty: 10 Rx Instructions: As directed (DME) lancets [Lancets,Ultra Thin] 26 gauge misc 1 gauge .ROUTE .MEDSUPPLY Qty: 100 Rx Instructions: As directed fluticasone propionate [Flovent HFA] 110 mcg/actuation HFA aerosol inhaler 1 inh inhalation BID alprazolam [Xanax] 0.5 mg tablet 0.5 mg PO TIDP PRN (Reason: Anxiety) citalopram 40 mg tablet 40 mg PO DAILY magnesium 250 mg tablet 250 mg PO DAILY PRN (Reason: SUPPLEMENT) esomeprazole magnesium 40 mg capsule,delayed release(DR/EC) 40 mg PO DAILY metolazone 2.5 mg tablet 2.5 mg PO BID PRN (Reason: fluid) Qty: 30 4RF spironolactone 25 mg tablet 25 mg PO BID Qty: 180 1RF levothyroxine 25 MCG tablet 25 mcg PO DAILYDM ergocalciferol (vitamin D2) 50,000 UNIT capsule 50,000 units PO MONTHLY Label Comments: TAKE 1 CAPSULE BY MOUTH ONCE MONTHLY dexlansoprazole 60 MG capsule,biphase delayed releas 60 mg PO DAILY Label Comments: TAKE (1) CAPSULE BY MOUTH ONCE A DAY. Rx Instructions: IN THE MORNING warfarin 5 mg tablet 5 mg PO DAILY Label Comments: Rx Instructions: DAILY EXCEPT FRIDAYS THEN TAKES ONLY 2.5MG insulin glargine-lixisenatide 3 ML insulin pen 60 units SQ DAILY bumetanide 1 MG tablet 1 mg PO BIDL levalbuterol HCl 1.25 MG/3 ML solution for nebulization 1.25 mg IH TID PRN (Reason: COPD) methocarbamol 500 mg tablet 500 mg PO TID PRN (Reason: muscle spasm) Qty: 14 0RF febuxostat 40 mg tablet 40 mg PO DAILY metoprolol succinate 200 mg tablet extended release 24 hr 200 mg PO DAILY Referrals Follow up/Referrals: Provider,Referral, MD [Referring] - See instructions Activity Restrictions/Add. Instructions Additional Instructions/Restrictions: Please stop your Entresto as instructed by Dr. Sawyer. I discussed the case with him he would like to see tomorrow in his clinic on 11. Return to the emergency part with any worsening symptoms. Your H&H is stable no need for emergent transfusion. Clinical Impressions Clinical Impression: Anemia, Hypotension, CHF (congestive heart failure), Weakness, CKD (chronic kidney disease) Discharge ED Provider: Elieser De La Garza General Adult HPI General Chief complaint: Chest Pain Stated complaint: chest pain Time Seen by Provider: 02/09/23 16:01 Mode of Arrival: Ambulatory Source of Information: Patient Limitations: No Limitations Description of Symptoms (Recalled from ER Triage Doc. by RN): pt to ED with intermitten chest pain x 2 weeks who she has been seeing Dr. Sawyer for. pt reports she took her first dose this morning and around noon started to feel funny and checked her BP at home and noticied herself to be hypotensive. pt is also chronically anemic and gets blood transfusions weekly. History of Present Illness HPI narrative: 57-year-old female with a history of heart failure hypertension CKD chronic anemia quiring multiple transfusions here with weakness and concerns about medication adverse side effect today. Most recently she was transfused a week ago. Denies any melena states she has had numerous GI work-ups has had over
[2023-02-09 16:03] LABS: Blood Urea Nitrogen 51 mg/dl (7-17); Carbon Dioxide 36 mmol/L (22.0-30.0); Creatinine Clearance Estimated 44 mL/min (50-200); Estimated Glomerular Filt Rate 26 ml/min (>60); GFR (African American) 31 ML/MIN (>60); Glucose 126 mg/dl (74-100)
[2023-02-09 16:07] VITALS: BP 99/48; PULSE 74; O2SAT 99
--- NOTE | 2023-02-09 16:12 | PC.NURSE ---
Paged Dr. Sawyer for Dr. De La Garza
--- NOTE | 2023-02-09 16:13 | PC.NURSE ---
SALIMA FIGUEROA speaking with Dr. Sawyer
[2023-02-09 16:20] LABS: Troponin I < 0.01 ng/ml (0.00-0.034)
[2023-02-09 17:01] VITALS: BP 95/51; PULSE 74; RESP 17; TEMP 36.8; O2SAT 94
== END 2023-02-09 17:07 | disposition home or self-care (01) ==
PROVIDERS: Emergency Provider Student in an Organized Health Care Education/Training Program; PCP Internal Medicine Adolescent Medicine
DX: D64.9 Anemia, unspecified (principal); I10 Essential (primary) hypertension; I50.22 Chronic systolic (congestive) heart failure
CPT/HCPCS: 71046; 80048; 84484; 85025; 93005; 99285

== ENCOUNTER 2023-02-16 08:23 | Outpatient (CLI) | payer MEDICARE, MEDICAID, SELFPAY ==
[2023-02-16] VITALS (11 sets, daily range): BP systolic 104–110; BP diastolic 53–67; PULSE 74–80; RESP 18; TEMP 36.6–36.7; O2SAT 97–98; BMI 35.6
[2023-02-16 08:41] LABS: Basophils # 0.1 K/mm3 (0-0.2); Basophils % 0.6 % (0.1-2.0); Eosinophils # 0.3 K/mm3 (0.0-0.4); Eosinophils % 3.4 % (0.1-12.0); Hematocrit 24.3 % (37.0-47.0); Hemoglobin 7.5 g/dL (12.2-16.2); Lymphocytes # 0.5 K/mm3 (0.7-4.5); Lymphocytes % 4.8 % (10-50); Mean Corpuscular Volume 77.5 fl (81-99); Monocytes # 0.5 K/mm3 (0.1-1.0); Monocytes % 4.6 % (1.7-9.3); Neutrophils # 8.3 K/mm3 (1.8-7.8); Neutrophils % 86.6 % (37.0-80.0); Platelet Count 321 K/mm3 (142-424); Red Blood Count 3.14 M/mm3 (4.20-5.40); Red Cell Distribution Width 21.3 % (11.5-17.5); White Blood Count 9.6 K/mm3 (4.8-10.8)
[2023-02-16 08:43] LABS: MANUAL DIFFERENTIAL MANUAL DIFFERENTIAL (MANUAL DIFF)
[2023-02-16 08:57] LABS: Anisocytosis 1+; Hypochromasia 1+; Lymphocytes % 4 % (10-50); Microcytosis 1+; Monocytes % 1 % (2-9); Neutrophils % 95 % (42-76); Ovalocytes 1+; Platelet Estimate Normal; Total Cells Counted 100
[2023-02-16 10:05] LABS: Iron 31 ug/dL (37-170); Total Iron Binding Capacity 543 ug/dL (265-497)
[2023-02-16 10:12] LABS: Ferritin 9.07 ng/ml (11.1-264)
== END 2023-02-16 14:04 | disposition home or self-care (01) ==
LOC: INF 08:23
PROVIDERS: PCP Internal Medicine Adolescent Medicine; Visit Provider Internal Medicine Medical Oncology
DX: Z45.2 Encounter for adjustment and management of vascular access device (principal); D50.8 Other iron deficiency anemias
CPT/HCPCS: 36430; 82728; 83540; 83550; 85007; 85025; 86850; J1642; P9016

== ENCOUNTER → 2023-02-23 09:10 | Outpatient (CLI) | payer MEDICARE, MEDICAID, SELFPAY ==
[2023-02-23] VITALS (10 sets, daily range): BP systolic 104–133; BP diastolic 57–84; PULSE 76–88; RESP 18; TEMP 36.6–37; O2SAT 95–96; BMI 35.2
[2023-02-23 10:02] LABS: Chloride 91 mmol/L (98-107); Sodium 134 mmol/L (136-145)
[2023-02-23 10:03] LABS: Potassium 3.8 mmoL/L (3.5-5.1)
[2023-02-23 10:15] LABS: Basophils % 0.5 % (0.1-2.0); Eosinophils # 0.2 K/mm3 (0.0-0.4); Eosinophils % 3.2 % (0.1-12.0); Hematocrit 24.1 % (37.0-47.0); Lymphocytes # 0.4 K/mm3 (0.7-4.5); Lymphocytes % 5.4 % (10-50); Mean Corpuscular HGB Conc 28.6 g/dL (31.8-35.4); Mean Corpuscular Volume 80.5 fl (81-99); Monocytes # 0.4 K/mm3 (0.1-1.0); Monocytes % 5.8 % (1.7-9.3); Neutrophils # 6.4 K/mm3 (1.8-7.8); Neutrophils % 85.1 % (37.0-80.0); Platelet Count 257 K/mm3 (142-424); Red Cell Distribution Width 19.9 % (11.5-17.5); White Blood Count 7.5 K/mm3 (4.8-10.8)
[2023-02-23 10:20] LABS: Hemoglobin 6.9 g/dL (12.2-16.2); MANUAL DIFFERENTIAL MANUAL DIFFERENTIAL (MANUAL DIFF)
[2023-02-23 10:32] LABS: Uric Acid 7.9 mg/dl (2.5-6.2)
[2023-02-23 10:40] LABS: Hemoglobin A1C 7.4 % (4.0-6.0)
[2023-02-23 10:45] LABS: Intact Parathyroid Hormone 246.4 pg/mL (7.5-53.5)
[2023-02-23 10:48] LABS: Alanine Aminotransferase 17 U/L (12-78); Albumin Level 4.3 g/dl (3.5-5.0); Albumin/Globulin Ratio 1.7 (1.1-1.8); Alkaline Phosphatase 98 U/L (38-126); Anion Gap 10.8 mEq/L (5-15); Aspartate Amino Transferase 28 U/L (14-36); Bilirubin,Total 0.6 mg/dl (0.2-1.3); Blood Urea Nitrogen 47 mg/dl (7-17); Calcium 9.4 mg/dl (8.4-10.2); Carbon Dioxide 36 mmol/L (22.0-30.0); Creatinine Clearance Estimated 64 mL/min (50-200); Estimated Glomerular Filt Rate 38 ml/min (>60); GFR (African American) 47 ML/MIN (>60); Globulin 2.6 g/dL (1.3-3.2); Glucose 255 mg/dl (74-100); Total Protein,Serum 6.9 g/dl (6.3-8.2)
[2023-02-23 10:51] LABS: 25-OH Vitamin D, Total 39.9 ng/mL (30-100)
--- NOTE | 2023-02-23 11:02 | PC.NURSE ---
Crystal Pedro called Rn at 1019 to report critical hgb of 6.9. Rn repeated and verified pt name, and lab results. pt has standing orders in place for transfusion of PRBC. pt will recieve on unit PRBC today. MD Marcelino notified and no new orders.
[2023-02-23 11:23] LABS: Microscopic, Urine URINE MICROSCOPIC (MICROSCOPIC)
[2023-02-23 11:32] LABS: Appearance,Urine CLEAR (Clear); Bilirubin,Urine Negative (Negative); Blood, Urine Negative (Negative); Color,Urine YELLOW (Yellow); Glucose,Urine (UA) Negative (Negative); Ketones,Urine Negative (Negative); Leukocyte Esterase,Urine Negative (Negative); Nitrate,Urine Negative (Negative); PH,Urine 6.5 (5.0-8.5); Protein,Urine Negative (Negative); Specific Gravity, Urine <= 1.005 (1.005-1.030); Urobilinogen,Urine 0.2 EU/dl (0.2)
[2023-02-23 11:43] LABS: Lymphocytes % 6 % (10-50); Monocytes % 6 % (2-9); Neutrophils % 88 % (42-76); Nucleated Red Blood Cells 1; Total Cells Counted 100
[2023-02-23 11:44] LABS: Creatinine,Urine Random 33 mg/dL (Not Estab.)
[2023-02-23 11:44] LABS: Microcytosis 1+; Platelet Estimate Normal
[2023-02-23 11:45] LABS: Anisocytosis 1+; Hypochromasia 2+
[2023-02-23 11:46] LABS: Stomatocytes 1+
== END ==
LOC: INF 09:11
PROVIDERS: PCP Internal Medicine Adolescent Medicine; Visit Provider Internal Medicine Medical Oncology
DX: Z45.2 Encounter for adjustment and management of vascular access device (principal); D64.9 Anemia, unspecified; E55.9 Vitamin D deficiency, unspecified; E11.9 Type 2 diabetes mellitus without complications; Z79.4 Long term (current) use of insulin
CPT/HCPCS: 36430; 80053; 81001; 82306; 82570; 83036; 83970; 84155; 84550; 85007; 85025; 86850; J1642; P9016

== ENCOUNTER 2023-02-24 09:37 | Outpatient (CLI) | payer MEDICARE, MEDICAID, SELFPAY ==
[2023-02-24 10:00] VITALS: BP 113/59; PULSE 77; RESP 16; O2SAT 96
[2023-02-24 10:30] VITALS: BP 112/70; PULSE 68; RESP 16
== END 2023-02-24 10:45 | disposition home or self-care (01) ==
LOC: INF 09:38
PROVIDERS: PCP Internal Medicine Adolescent Medicine; Visit Provider Internal Medicine Medical Oncology
DX: D50.9 Iron deficiency anemia, unspecified (principal)
CPT/HCPCS: 96365; J1439; J1642

== ENCOUNTER 2023-03-02 09:46 | Outpatient (CLI) | payer MEDICARE, MEDICAID, SELFPAY ==
[2023-03-02 09:49] VITALS: BMI 35.2
[2023-03-02 10:08] LABS: Basophils % 0.3 % (0.1-2.0); Eosinophils # 0.3 K/mm3 (0.0-0.4); Hematocrit 26.2 % (37.0-47.0); Hemoglobin 7.9 g/dL (12.2-16.2); Lymphocytes # 0.4 K/mm3 (0.7-4.5); Lymphocytes % 3.9 % (10-50); Mean Corpuscular HGB Conc 30.1 g/dL (31.8-35.4); Mean Corpuscular Hemoglobin 25.1 pg (27.0-31.2); Mean Corpuscular Volume 83.5 fl (81-99); Mean Platelet Volume 9.2 fl (7.4-10.4); Monocytes # 0.4 K/mm3 (0.1-1.0); Monocytes % 4.1 % (1.7-9.3); Neutrophils # 8.4 K/mm3 (1.8-7.8); Neutrophils % 88.6 % (37.0-80.0); Platelet Count 242 K/mm3 (142-424); Red Blood Count 3.14 M/mm3 (4.20-5.40); White Blood Count 9.5 K/mm3 (4.8-10.8)
[2023-03-02 10:09] VITALS: BP 126/60; PULSE 80; RESP 20; TEMP 36.8; O2SAT 96
[2023-03-02 10:14] LABS: Red Cell Distribution Width 26.8 % (11.5-17.5)
[2023-03-02 10:15] LABS: MANUAL DIFFERENTIAL MANUAL DIFFERENTIAL (MANUAL DIFF)
[2023-03-02 10:31] LABS: Lymphocytes % 7 % (10-50); Monocytes % 3 % (2-9); Neutrophils % 90 % (42-76); Platelet Estimate Normal; Total Cells Counted 100
[2023-03-02 10:32] LABS: Hypochromasia 1+
[2023-03-02 10:45] VITALS: BP 128/64; PULSE 81; RESP 20; O2SAT 96
--- NOTE | 2023-03-02 11:02 | PC.NURSE ---
Pt typed and screened at 1050 for 1 unit PRBC to be administered on 03/03/23 for Hgb less than 8 per MD order.
== END 2023-03-02 10:45 | disposition home or self-care (01) ==
LOC: INF 09:47
PROVIDERS: PCP Internal Medicine Adolescent Medicine; Visit Provider Internal Medicine Medical Oncology
DX: D50.9 Iron deficiency anemia, unspecified (principal)
CPT/HCPCS: 85007; 85025; 86850; 86870; 96365; J1439

== ENCOUNTER 2023-03-03 09:31 | Outpatient (CLI) | payer MEDICARE, MEDICAID, SELFPAY ==
[2023-03-03] VITALS (12 sets, daily range): BP systolic 116–125; BP diastolic 55–71; PULSE 79–84; RESP 18–20; TEMP 36.9–37.1; O2SAT 96
== END 2023-03-03 13:40 | disposition home or self-care (01) ==
LOC: INF 09:32
PROVIDERS: PCP Internal Medicine Adolescent Medicine; Visit Provider Internal Medicine Medical Oncology
DX: D50.9 Iron deficiency anemia, unspecified (principal)
CPT/HCPCS: 36430; J1642; P9016

== ENCOUNTER 2023-03-08 13:49 | Outpatient (CLI) | payer MEDICARE, MEDICAID, SELFPAY ==
[2023-03-08 13:53] VITALS: BMI 35.2
[2023-03-08 14:20] LABS: Basophils % 0.3 % (0.1-2.0); Eosinophils # 0.2 K/mm3 (0.0-0.4); Eosinophils % 2.3 % (0.1-12.0); Hematocrit 31.5 % (37.0-47.0); Hemoglobin 9.5 g/dL (12.2-16.2); Lymphocytes # 0.5 K/mm3 (0.7-4.5); Lymphocytes % 5.6 % (10-50); Mean Corpuscular HGB Conc 30.1 g/dL (31.8-35.4); Mean Corpuscular Hemoglobin 26.3 pg (27.0-31.2); Mean Corpuscular Volume 87.2 fl (81-99); Mean Platelet Volume 7.8 fl (7.4-10.4); Monocytes # 0.4 K/mm3 (0.1-1.0); Monocytes % 5.4 % (1.7-9.3); Neutrophils % 86.3 % (37.0-80.0); Platelet Count 246 K/mm3 (142-424); Red Blood Count 3.62 M/mm3 (4.20-5.40); White Blood Count 8.2 K/mm3 (4.8-10.8)
[2023-03-08 14:21] LABS: Red Cell Distribution Width 25.9 % (11.5-17.5)
[2023-03-08 14:22] LABS: MANUAL DIFFERENTIAL MANUAL DIFFERENTIAL (MANUAL DIFF)
[2023-03-08 15:40] LABS: Lymphocytes % 2 % (10-50); Monocytes % 7 % (2-9); Neutrophils % 91 % (42-76); Total Cells Counted 100
[2023-03-08 15:49] LABS: Anisocytosis 1+; Hypochromasia 1+; Ovalocytes 1+; Platelet Estimate Normal
== END 2023-03-08 14:10 | disposition home or self-care (01) ==
LOC: INF 13:50
PROVIDERS: Internal Medicine Medical Oncology; PCP Internal Medicine Adolescent Medicine; Visit Provider Internal Medicine Adolescent Medicine
DX: D64.9 Anemia, unspecified (principal); Z45.2 Encounter for adjustment and management of vascular access device
CPT/HCPCS: 36591; 85007; 85025; J1642

== ENCOUNTER 2023-03-16 09:33 | Outpatient (CLI) | payer MEDICARE, MEDICAID, SELFPAY ==
[2023-03-16 09:54] LABS: PHA INR Fingerstick 3.4 (0.9-1.1)
[2023-03-16 09:58] VITALS: BMI 34.7
[2023-03-16 10:18] LABS: Basophils % 0.4 % (0.1-2.0); Eosinophils # 0.2 K/mm3 (0.0-0.4); Eosinophils % 2.4 % (0.1-12.0); Hematocrit 30.9 % (37.0-47.0); Hemoglobin 9.4 g/dL (12.2-16.2); Lymphocytes # 0.4 K/mm3 (0.7-4.5); Lymphocytes % 4.8 % (10-50); Mean Corpuscular HGB Conc 30.3 g/dL (31.8-35.4); Mean Corpuscular Hemoglobin 26.7 pg (27.0-31.2); Mean Corpuscular Volume 87.9 fl (81-99); Mean Platelet Volume 8.2 fl (7.4-10.4); Monocytes # 0.4 K/mm3 (0.1-1.0); Neutrophils # 7.2 K/mm3 (1.8-7.8); Neutrophils % 87.4 % (37.0-80.0); Platelet Count 316 K/mm3 (142-424); Red Blood Count 3.52 M/mm3 (4.20-5.40); Red Cell Distribution Width 24.4 % (11.5-17.5); White Blood Count 8.3 K/mm3 (4.8-10.8)
[2023-03-16 10:21] LABS: MANUAL DIFFERENTIAL MANUAL DIFFERENTIAL (MANUAL DIFF)
[2023-03-16 10:28] LABS: Anisocytosis 1+; Eosinophils % 1 % (0-3); Hypochromasia 1+; Lymphocytes % 5 % (10-50); Monocytes % 1 % (2-9); Neutrophils % 93 % (42-76); Ovalocytes 1+; Platelet Estimate Normal; Total Cells Counted 100
== END 2023-03-16 10:20 | disposition home or self-care (01) ==
LOC: INF 09:34
PROVIDERS: PCP Internal Medicine Adolescent Medicine; Visit Provider Internal Medicine Medical Oncology
DX: D64.9 Anemia, unspecified (principal); Z79.01 Long term (current) use of anticoagulants
CPT/HCPCS: 36591; 85007; 85025; 85610; 99211; G0463; J1642

== ENCOUNTER 2023-03-23 08:55 | Outpatient (CLI) | payer MEDICARE, MEDICAID, SELFPAY ==
[2023-03-23 09:01] VITALS: BMI 34.7
[2023-03-23 09:18] LABS: Basophils % 0.3 % (0.1-2.0); Eosinophils # 0.3 K/mm3 (0.0-0.4); Eosinophils % 3.9 % (0.1-12.0); Hematocrit 28.2 % (37.0-47.0); Hemoglobin 8.8 g/dL (12.2-16.2); Lymphocytes # 0.4 K/mm3 (0.7-4.5); Lymphocytes % 5.8 % (10-50); Mean Corpuscular HGB Conc 31.2 g/dL (31.8-35.4); Mean Corpuscular Hemoglobin 27.3 pg (27.0-31.2); Mean Corpuscular Volume 87.7 fl (81-99); Monocytes # 0.3 K/mm3 (0.1-1.0); Monocytes % 3.8 % (1.7-9.3); Neutrophils # 6.3 K/mm3 (1.8-7.8); Neutrophils % 86.2 % (37.0-80.0); Platelet Count 236 K/mm3 (142-424); Red Blood Count 3.22 M/mm3 (4.20-5.40); White Blood Count 7.3 K/mm3 (4.8-10.8)
[2023-03-23 09:24] LABS: MANUAL DIFFERENTIAL MANUAL DIFFERENTIAL (MANUAL DIFF)
[2023-03-23 09:37] LABS: Eosinophils % 2 % (0-3); Lymphocytes % 4 % (10-50); Monocytes % 5 % (2-9); Neutrophils % 89 % (42-76); Platelet Estimate Normal; RBC Morphology Normal; Total Cells Counted 100
== END 2023-03-23 09:30 | disposition home or self-care (01) ==
LOC: INF 08:56
PROVIDERS: PCP Internal Medicine Adolescent Medicine; Visit Provider Internal Medicine Medical Oncology
DX: D64.9 Anemia, unspecified (principal)
CPT/HCPCS: 36591; 85007; 85025; J1642

== ENCOUNTER 2023-03-30 09:13 | Outpatient (CLI) | payer MEDICARE, MEDICAID, SELFPAY ==
[2023-03-30 09:17] VITALS: BMI 34.7
[2023-03-30 09:45] LABS: Basophils % 0.3 % (0.1-2.0); Eosinophils # 0.4 K/mm3 (0.0-0.4); Eosinophils % 4.7 % (0.1-12.0); Hematocrit 26.9 % (37.0-47.0); Hemoglobin 8.4 g/dL (12.2-16.2); Lymphocytes # 0.4 K/mm3 (0.7-4.5); Lymphocytes % 5.2 % (10-50); Mean Corpuscular HGB Conc 31.2 g/dL (31.8-35.4); Mean Corpuscular Hemoglobin 26.6 pg (27.0-31.2); Mean Corpuscular Volume 85.2 fl (81-99); Mean Platelet Volume 8.3 fl (7.4-10.4); Monocytes # 0.4 K/mm3 (0.1-1.0); Monocytes % 5.2 % (1.7-9.3); Neutrophils # 6.5 K/mm3 (1.8-7.8); Neutrophils % 84.7 % (37.0-80.0); Platelet Count 233 K/mm3 (142-424); Red Blood Count 3.16 M/mm3 (4.20-5.40); Red Cell Distribution Width 21.6 % (11.5-17.5); White Blood Count 7.7 K/mm3 (4.8-10.8)
[2023-03-30 10:05] LABS: Iron 33 ug/dL (37-170)
[2023-03-30 10:14] LABS: Total Iron Binding Capacity 478 ug/dL (265-497)
[2023-03-30 10:43] LABS: Ferritin 41.3 ng/ml (11.1-264)
== END 2023-03-30 10:18 | disposition home or self-care (01) ==
LOC: INF 09:14
PROVIDERS: PCP Internal Medicine Adolescent Medicine; Visit Provider Internal Medicine Medical Oncology
DX: Z45.2 Encounter for adjustment and management of vascular access device (principal); D64.9 Anemia, unspecified
CPT/HCPCS: 36591; 82728; 83540; 83550; 85025; J1642

== ENCOUNTER 2023-04-03 16:31 | Emergency (ER) | payer MEDICARE, MEDICAID, SELFPAY ==
[2023-04-03 16:39] VITALS: BP 136/63; PULSE 83; O2SAT 94
--- NOTE | 2023-04-03 16:42 | XR_ITS ---
PROCEDURE INFORMATION: Exam: XR Left Forearm Exam date and time: 04/03/23 05:29 PM Age: 58 years old Clinical indication: Injury or trauma; Fall; Blunt trauma (contusions or hematomas); Arm, lower; Left TECHNIQUE: Imaging protocol: Radiologic exam of the left forearm. Views: 2 views. COMPARISON: NM BONE SCAN WHOLE BODY 04/14/22 11:43 AM FINDINGS: Bones/joints: Normal. Soft tissues: Normal. IMPRESSION: No acute findings.
--- NOTE | 2023-04-03 16:42 | XR_ITS ---
PROCEDURE INFORMATION: Exam: XR Left Knee Exam date and time: 04/03/23 05:29 PM Age: 58 years old Clinical indication: Injury or trauma; Fall; Blunt trauma; Knee; Left; Prior surgery; Surgery date: 6+ months; Surgery type: Tibia TECHNIQUE: Imaging protocol: Radiologic exam of the left knee. Views: 1 or 2 views. COMPARISON: NM BONE SCAN WHOLE BODY 04/14/22 11:43 AM FINDINGS: Bones/joints: Previous internal fixation left tibial plateau. Hardware intact without fracture. Soft tissues: Normal. IMPRESSION: Previous internal fixation left tibial plateau. Hardware intact without fracture.
--- NOTE | 2023-04-03 16:45 | CT_ITS ---
PROCEDURE INFORMATION: Exam: CT Abdomen And Pelvis Without Contrast Exam date and time: 04/03/23 05:11 PM Age: 58 years old Clinical indication: Injury or trauma; Fall; Blunt; Luq; Additional info: Trauma left rib injury TECHNIQUE: Imaging protocol: Computed tomography of the abdomen and pelvis without contrast. Radiation optimization: All CT scans at this facility use at least one of these dose optimization techniques: automated exposure control; mA and/or kV adjustment per patient size (includes targeted exams where dose is matched to clinical indication); or iterative reconstruction. REPORTING DATA: Count of CT and Cardiac NM exams in prior 12 months: This patient has received [address] and 0 known cardiac nuclear medicine studies in the 12 months prior to the current study. COMPARISON: CT ABDOMEN PELVIS WO CON 02/21/22 10:38 PM FINDINGS: Tubes, catheters and devices: None noted. Lungs: Lung bases appear clear. Heart: Median sternotomy. Massive cardiomegaly. No significant pericardial effusion. Liver: Normal. No mass. Gallbladder and bile ducts: Normal. No calcified stones. No ductal dilation. Pancreas: Normal. No ductal dilation. Spleen: Normal. No splenomegaly. Adrenal glands: 3.1 x 2.5 cm right adrenal mass, probably adenoma. Consider myelolipoma. Kidneys and ureters: Right renal cysts. No hydronephrosis. Stomach and bowel: Sigmoid colectomy. No obstruction. No mucosal thickening. Appendix: No evidence of appendicitis. Intraperitoneal space: Unremarkable. No free air. No significant fluid collection. Retroperitoneal space: No significant retroperitoneal inflammatory changes are noted. Vasculature: Unremarkable. No abdominal aortic aneurysm. Lymph nodes: Unremarkable. No enlarged lymph nodes. Urinary bladder: Unremarkable as visualized. Reproductive: Left hydrosalpinx. Tubal ligation. Bones/joints: Unremarkable. No acute fracture. Soft tissues: Anterior abdominal wall mesh. IMPRESSION: 1. Left hydrosalpinx stable. 2. 3.1 cm right adrenal mass, incompletely evaluated. Increased in size since comparison. 3. Massive cardiomegaly unchanged. 4. No acute traumatic abdominal abnormality identified. COMMENTS: 1. Consistent with the [employer]'s Incidental Findings Committee white paper (J Am Dominik Radiol 2017): For any incidental adrenal lesion greater than or equal to 1 cm but less than or equal to 4 cm classified in this report as benign, likely benign, or containing fat (including classification as an adenoma or myelolipoma), no follow-up imaging is recommended per consensus recommendations based on imaging criteria. Further lab evaluation could be pursued if warranted based on clinical findings. 2. Consistent with the [employer]'s Incidental Findings Committee white paper (J Am Dominik Radiol 2018): Any incidental renal lesion less than 1 cm or classified as too small to characterize, or any incidental cystic renal lesion characterized as simple-appearing, is likely benign. No follow-up imaging is recommended for these lesions per consensus recommendations based on imaging criteria.
--- NOTE | 2023-04-03 16:45 | CT_ITS ---
PROCEDURE INFORMATION: Exam: CT Chest Without Contrast; Diagnostic Exam date and time: 04/03/23 05:11 PM Age: 58 years old Clinical indication: Injury or trauma; Fall; Blunt trauma (contusions or hematomas); Prior surgery; Surgery date: 6+ months; Surgery type: Valve replacement; Additional info: Trauma, left rib injury TECHNIQUE: Imaging protocol: Diagnostic computed tomography of the chest without contrast. Radiation optimization: All CT scans at this facility use at least one of these dose optimization techniques: automated exposure control; mA and/or kV adjustment per patient size (includes targeted exams where dose is matched to clinical indication); or iterative reconstruction. REPORTING DATA: Count of CT and Cardiac NM exams in prior 12 months: This patient has received [address] and 0 known cardiac nuclear medicine studies in the 12 months prior to the current study. COMPARISON: CT CHEST WO CON 02/21/22 10:35 PM FINDINGS: Lungs: Unremarkable. No consolidation. No masses. Pleural spaces: Unremarkable. No pneumothorax. No pleural effusion. Heart: Cardiomegaly. Mitral valve replacement. No significant coronary artery calcifications. Lymph nodes: Unremarkable. No enlarged lymph nodes. Vasculature: Unremarkable. No aortic aneurysm. Bones/joints: Median sternotomy. Nondisplaced fractures of the left 6th and 7th ribs. Soft tissues: Unremarkable. IMPRESSION: 1. Cardiomegaly. Median sternotomy. Mitral valve replacement. 2. Nondisplaced fractures of the left 6th and 7th ribs.
[2023-04-03 16:51] VITALS: BP 136/63; PULSE 86; RESP 20; TEMP 36.8; O2SAT 94; BMI 34.3
[2023-04-03 17:00] VITALS: BP 128/64; PULSE 84; O2SAT 94
--- NOTE | 2023-04-03 17:02 | PC.NURSE ---
CARMINE Jacobo rounded on patient and gave pt a warm blanket. call light within reach
[2023-04-03 17:08] LABS: Basophils % 0.3 % (0.1-2.0); Eosinophils # 0.3 K/mm3 (0.0-0.4); Eosinophils % 3.5 % (0.1-12.0); Hematocrit 27.4 % (37.0-47.0); Hemoglobin 8.6 g/dL (12.2-16.2); Lymphocytes # 0.5 K/mm3 (0.7-4.5); Lymphocytes % 6.9 % (10-50); Mean Corpuscular HGB Conc 31.4 g/dL (31.8-35.4); Mean Corpuscular Volume 82.9 fl (81-99); Mean Platelet Volume 8.2 fl (7.4-10.4); Monocytes # 0.5 K/mm3 (0.1-1.0); Neutrophils # 6.1 K/mm3 (1.8-7.8); Neutrophils % 82.3 % (37.0-80.0); Platelet Count 292 K/mm3 (142-424); Red Cell Distribution Width 21.1 % (11.5-17.5); White Blood Count 7.4 K/mm3 (4.8-10.8)
[2023-04-03 17:16] LABS: Alanine Aminotransferase 20 U/L (12-78); Albumin Level 4.5 g/dl (3.5-5.0); Albumin/Globulin Ratio 1.5 (1.1-1.8); Alkaline Phosphatase 99 U/L (38-126); Anion Gap 17.7 mEq/L (5-15); Aspartate Amino Transferase 27 U/L (14-36); Bilirubin,Total 0.7 mg/dl (0.2-1.3); Blood Urea Nitrogen 41 mg/dl (7-17); Calcium 9.2 mg/dl (8.4-10.2); Carbon Dioxide 34 mmol/L (22.0-30.0); Chloride 90 mmol/L (98-107); Creatinine Clearance Estimated 61 mL/min (50-200); Estimated Glomerular Filt Rate 38 ml/min (>60); GFR (African American) 46 ML/MIN (>60); Glucose 224 mg/dl (74-100); Potassium 3.7 mmoL/L (3.5-5.1); Sodium 138 mmol/L (136-145); Total Protein,Serum 7.5 g/dl (6.3-8.2)
--- NOTE | 2023-04-03 17:23 | PC.NURSE ---
pt return from CT
--- NOTE | 2023-04-03 18:09 | PC.NURSE ---
er at bedside
[2023-04-03 18:10] LABS: INR 2.43 (0.9-1.1)
--- NOTE | 2023-04-03 18:10 | PC.NURSE ---
yaneth notified this RN of critical lab value: PTT greater than 200. relayed results to
[2023-04-03 18:26] VITALS: BP 130/65; PULSE 82; RESP 18; TEMP 36.4; O2SAT 95
--- NOTE | 2023-04-03 20:42 | HMH.EDGENADL ---
Discharge Plan Disposition Patient Disposition: Home, Self-Care Condition: Fair Prescriptions Prescriptions: New lidocaine 5 % adhesive patch,medicated 1 patch topical Q24H Qty: 30 0RF Rx Instructions: leave on most painful area for up to 12 hrs No Action aspirin [Adult Low Dose Aspirin] 81 mg tablet,delayed release (DR/EC) 81 mg PO DAILY oxycodone-acetaminophen [Percocet] 10-325 mg tablet 1 tab PO TIDP PRN (Reason: Moderate Pain) famotidine [Pepcid] 20 mg tablet 20 mg PO DAILYP PRN (Reason: gerd) Rx Instructions: AT DINNER TIME calcitriol 0.25 mcg capsule 0.25 mcg PO Q48H colchicine [Mitigare] 0.6 mg capsule 0.6 mg PO DAILYP PRN (Reason: gout) (DME) blood-glucose meter [True Metrix Glucose Meter] Misc 1 each .ROUTE .MEDSUPPLY Qty: 1 Rx Instructions: As directed (DME) True Metrix Glucose Test Strip Strip 1 strip .ROUTE .MEDSUPPLY Qty: 10 Rx Instructions: As directed (DME) lancets [Lancets,Ultra Thin] 26 gauge misc 1 gauge .ROUTE .MEDSUPPLY Qty: 100 Rx Instructions: As directed fluticasone propionate [Flovent HFA] 110 mcg/actuation HFA aerosol inhaler 1 inh inhalation BID alprazolam [Xanax] 0.5 mg tablet 0.5 mg PO TIDP PRN (Reason: Anxiety) citalopram 40 mg tablet 40 mg PO DAILY magnesium 250 mg tablet 250 mg PO DAILY PRN (Reason: SUPPLEMENT) metolazone 2.5 mg tablet 2.5 mg PO BID PRN (Reason: fluid) Qty: 30 4RF diazepam 5 mg tablet 5 mg PO HS omeprazole 40 mg capsule,delayed release(DR/EC) 40 mg PO BID spironolactone 25 mg tablet 25 mg PO BID Qty: 180 1RF levothyroxine 25 MCG tablet 25 mcg PO DAILYDM ergocalciferol (vitamin D2) 50,000 UNIT capsule 50,000 units PO MONTHLY Label Comments: TAKE 1 CAPSULE BY MOUTH ONCE MONTHLY dexlansoprazole 60 MG capsule,biphase delayed releas 60 mg PO DAILY Label Comments: TAKE (1) CAPSULE BY MOUTH ONCE A DAY. Rx Instructions: IN THE MORNING warfarin 5 mg tablet 5 mg PO DAILY Label Comments: Rx Instructions: DAILY EXCEPT FRIDAYS THEN TAKES ONLY 2.5MG metoprolol succinate 100 mg tablet extended release 24 hr 100 mg PO DAILY insulin glargine-lixisenatide 3 ML insulin pen 60 units SQ DAILY bumetanide 1 MG tablet 1 mg PO BIDL levalbuterol HCl 1.25 MG/3 ML solution for nebulization 1.25 mg IH TID PRN (Reason: COPD) methocarbamol 500 mg tablet 500 mg PO TID PRN (Reason: muscle spasm) Qty: 14 0RF febuxostat 40 mg tablet 40 mg PO DAILY Referrals Follow up/Referrals: Reji Castro MD [Primary Care Provider] - See instructions Clinical Impressions Clinical Impression: Closed rib fracture Discharge ED Provider: Albert Shultz Adult HPI General Chief complaint: Fall Stated complaint: AO04/03@1500 fall LT arm, LT knee rib pain Time Seen by Provider: 04/03/23 16:42 Mode of Arrival: Ambulatory Source of Information: Patient Limitations: No Limitations Description of Symptoms (Recalled from ER Triage Doc. by RN): pt to ed c/o fall. pt states she was getting out of her vehicle, stepped up on the pavement, felt weak and fell onto her left arm and left hip. pt denies hitting her head. pt states she takes coumadin. History of Present Illness HPI narrative: This is a very pleasant 58-year-old lady who presents with a chief complaint of rib pain. Patient states she tripped and fell onto her left arm, left hip, left ribs just prior to arrival. Denies striking her head. Denies loss consciousness. Complains mainly of left rib pain. No back pain or neck pain other than her chronic pain. No numbness weakness or paresthesias. She has been ambulatory since the event. She denies any syncope. Related Data Home Medications Medication Instructions Recorded Confirmed aspirin 81 mg tablet,delayed 81 mg PO DAILY [facility]
== END 2023-04-03 18:27 | disposition home or self-care (01) ==
PROVIDERS: Emergency Provider Emergency Medicine; PCP Internal Medicine Adolescent Medicine
DX: S22.42XA Multiple fractures of ribs, left side, initial encounter for closed fracture (principal); Z79.01 Long term (current) use of anticoagulants; Z87.891 Personal history of nicotine dependence; W01.0XXA Fall on same level from slipping, tripping and stumbling without subsequent striking against object, initial encounter; Z23 Encounter for immunization
CPT/HCPCS: 71250; 73090; 73560; 74176; 80053; 85025; 85610; 85730; 90715; 96372; 96374; 96375; 99285; J1642; J2405

== ENCOUNTER 2023-04-06 08:31 | Outpatient (CLI) | payer MEDICARE, MEDICAID, SELFPAY ==
[2023-04-06 08:41] VITALS: BMI 34.7
[2023-04-06 08:53] VITALS: BP 134/74; PULSE 83; RESP 18; TEMP 37.2; O2SAT 96
[2023-04-06 09:09] LABS: Basophils % 0.4 % (0.1-2.0); Eosinophils # 0.3 K/mm3 (0.0-0.4); Hematocrit 26.7 % (37.0-47.0); Hemoglobin 8.2 g/dL (12.2-16.2); Lymphocytes # 0.5 K/mm3 (0.7-4.5); Lymphocytes % 5.2 % (10-50); Mean Corpuscular HGB Conc 30.6 g/dL (31.8-35.4); Mean Corpuscular Hemoglobin 25.4 pg (27.0-31.2); Mean Platelet Volume 8.4 fl (7.4-10.4); Monocytes # 0.5 K/mm3 (0.1-1.0); Monocytes % 5.5 % (1.7-9.3); Neutrophils # 7.7 K/mm3 (1.8-7.8); Neutrophils % 85.9 % (37.0-80.0); Platelet Count 321 K/mm3 (142-424); Red Blood Count 3.22 M/mm3 (4.20-5.40); Red Cell Distribution Width 21.1 % (11.5-17.5)
[2023-04-06 09:16] LABS: MANUAL DIFFERENTIAL MANUAL DIFFERENTIAL (MANUAL DIFF)
[2023-04-06 09:45] VITALS: BP 107/64; PULSE 80; RESP 18; O2SAT 97
[2023-04-06 10:15] LABS: Eosinophils % 1 % (0-3); Lymphocytes % 6 % (10-50); Monocytes % 3 % (2-9); Neutrophils % 90 % (42-76); Total Cells Counted 100
[2023-04-06 10:16] LABS: Platelet Estimate Normal; RBC Morphology Normal
== END 2023-04-06 09:51 | disposition home or self-care (01) ==
LOC: INF 08:32
PROVIDERS: PCP Internal Medicine Adolescent Medicine; Visit Provider Internal Medicine Medical Oncology
DX: D64.9 Anemia, unspecified (principal)
CPT/HCPCS: 85007; 85025; 96365; J1439; J1642

== ENCOUNTER 2023-04-13 08:54 | Outpatient (CLI) | payer MEDICARE, MEDICAID, SELFPAY ==
[2023-04-13 09:06] VITALS: BMI 34.7
[2023-04-13 09:45] VITALS: BP 122/75; PULSE 78; RESP 18; O2SAT 94
[2023-04-13 09:56] LABS: Basophils % 0.4 % (0.1-2.0); Eosinophils # 0.3 K/mm3 (0.0-0.4); Eosinophils % 3.7 % (0.1-12.0); Hematocrit 28.8 % (37.0-47.0); Hemoglobin 8.7 g/dL (12.2-16.2); Lymphocytes # 0.4 K/mm3 (0.7-4.5); Lymphocytes % 4.9 % (10-50); Mean Corpuscular HGB Conc 30.2 g/dL (31.8-35.4); Mean Corpuscular Hemoglobin 26.3 pg (27.0-31.2); Mean Platelet Volume 8.7 fl (7.4-10.4); Monocytes # 0.3 K/mm3 (0.1-1.0); Monocytes % 4.3 % (1.7-9.3); Neutrophils # 6.9 K/mm3 (1.8-7.8); Neutrophils % 86.7 % (37.0-80.0); Platelet Count 292 K/mm3 (142-424); Red Blood Count 3.31 M/mm3 (4.20-5.40); Red Cell Distribution Width 24.4 % (11.5-17.5)
[2023-04-13 09:59] LABS: MANUAL DIFFERENTIAL MANUAL DIFFERENTIAL (MANUAL DIFF)
[2023-04-13 10:05] LABS: Hypochromasia 1+; Lymphocytes % 6 % (10-50); Monocytes % 1 % (2-9); Neutrophils % 93 % (42-76); Ovalocytes 1+; Platelet Estimate Normal; Total Cells Counted 100
[2023-04-13 10:06] LABS: Anisocytosis 1+
[2023-04-13 10:34] VITALS: BP 127/71; PULSE 77; RESP 18; O2SAT 95
[2023-04-13 13:11] LABS: PHA INR Fingerstick 3.6 (0.9-1.1)
== END 2023-04-13 10:34 | disposition home or self-care (01) ==
LOC: ACC 08:55 → INF 08:57
PROVIDERS: Internal Medicine Medical Oncology; PCP Internal Medicine Adolescent Medicine; Visit Provider Internal Medicine Adolescent Medicine
DX: D64.9 Anemia, unspecified (principal); D59.10 Autoimmune hemolytic anemia, unspecified; Z51.81 Encounter for therapeutic drug level monitoring; Z79.01 Long term (current) use of anticoagulants
CPT/HCPCS: 85007; 85025; 85610; 96365; 99211; G0463; J1439; J1642

== ENCOUNTER → 2023-04-20 09:50 | Outpatient (CLI) | payer MEDICARE, MEDICAID, SELFPAY ==
[2023-04-20 10:18] VITALS: BMI 35.0
[2023-04-20 10:42] LABS: Basophils % 0.5 % (0.1-2.0); Eosinophils # 0.2 K/mm3 (0.0-0.4); Hemoglobin 9.3 g/dL (12.2-16.2); Lymphocytes # 0.4 K/mm3 (0.7-4.5); Lymphocytes % 7.2 % (10-50); Mean Corpuscular Hemoglobin 27.2 pg (27.0-31.2); Mean Corpuscular Volume 90.4 fl (81-99); Mean Platelet Volume 8.3 fl (7.4-10.4); Monocytes # 0.4 K/mm3 (0.1-1.0); Monocytes % 6.3 % (1.7-9.3); Neutrophils # 4.8 K/mm3 (1.8-7.8); Platelet Count 243 K/mm3 (142-424); Red Blood Count 3.43 M/mm3 (4.20-5.40); Red Cell Distribution Width 24.9 % (11.5-17.5); White Blood Count 5.9 K/mm3 (4.8-10.8)
== END ==
LOC: INF 09:51
PROVIDERS: PCP Internal Medicine Adolescent Medicine; Visit Provider Internal Medicine Medical Oncology
DX: D64.9 Anemia, unspecified (principal)
CPT/HCPCS: 36591; 85025; J1642

== ENCOUNTER 2023-04-27 09:44 | Outpatient (CLI) | payer MEDICARE, MEDICAID, SELFPAY ==
[2023-04-27 09:56] VITALS: BMI 34.7
[2023-04-27 10:22] LABS: Basophils % 0.4 % (0.1-2.0); Eosinophils # 0.3 K/mm3 (0.0-0.4); Eosinophils % 4.5 % (0.1-12.0); Hematocrit 29.2 % (37.0-47.0); Hemoglobin 8.6 g/dL (12.2-16.2); Lymphocytes # 0.4 K/mm3 (0.7-4.5); Lymphocytes % 6.4 % (10-50); Mean Corpuscular HGB Conc 29.6 g/dL (31.8-35.4); Mean Corpuscular Hemoglobin 27.7 pg (27.0-31.2); Mean Corpuscular Volume 93.5 fl (81-99); Mean Platelet Volume 7.4 fl (7.4-10.4); Monocytes # 0.3 K/mm3 (0.1-1.0); Monocytes % 5.2 % (1.7-9.3); Neutrophils # 4.6 K/mm3 (1.8-7.8); Neutrophils % 83.6 % (37.0-80.0); Platelet Count 205 K/mm3 (142-424); Red Blood Count 3.12 M/mm3 (4.20-5.40); Red Cell Distribution Width 21.6 % (11.5-17.5); White Blood Count 5.6 K/mm3 (4.8-10.8)
== END 2023-04-27 10:30 | disposition home or self-care (01) ==
LOC: INF 09:44
PROVIDERS: PCP Internal Medicine Adolescent Medicine; Visit Provider Internal Medicine Medical Oncology
DX: D64.9 Anemia, unspecified (principal)
CPT/HCPCS: 36591; 85025; J1642

== ENCOUNTER 2023-05-04 08:46 | Outpatient (CLI) | payer MEDICARE, MEDICAID, SELFPAY ==
[2023-05-04 08:53] VITALS: BMI 35.0
[2023-05-04 09:37] LABS: Basophils % 0.4 % (0.1-2.0); Eosinophils # 0.3 K/mm3 (0.0-0.4); Hematocrit 28.7 % (37.0-47.0); Hemoglobin 8.5 g/dL (12.2-16.2); Lymphocytes # 0.4 K/mm3 (0.7-4.5); Lymphocytes % 5.7 % (10-50); Mean Corpuscular HGB Conc 29.8 g/dL (31.8-35.4); Mean Corpuscular Hemoglobin 26.9 pg (27.0-31.2); Mean Corpuscular Volume 90.4 fl (81-99); Mean Platelet Volume 8.1 fl (7.4-10.4); Monocytes # 0.4 K/mm3 (0.1-1.0); Monocytes % 6.4 % (1.7-9.3); Neutrophils # 5.6 K/mm3 (1.8-7.8); Neutrophils % 82.4 % (37.0-80.0); Platelet Count 239 K/mm3 (142-424); Red Blood Count 3.17 M/mm3 (4.20-5.40); Red Cell Distribution Width 21.3 % (11.5-17.5); White Blood Count 6.8 K/mm3 (4.8-10.8)
== END 2023-05-04 10:03 | disposition home or self-care (01) ==
LOC: INF 08:47
PROVIDERS: PCP Internal Medicine Adolescent Medicine; Visit Provider Internal Medicine Medical Oncology
DX: D64.9 Anemia, unspecified (principal)
CPT/HCPCS: 36591; 85025; J1642

== ENCOUNTER 2023-05-11 08:43 | Outpatient (CLI) | payer MEDICARE, MEDICAID, SELFPAY ==
[2023-05-11] VITALS (12 sets, daily range): BP systolic 90–121; BP diastolic 56–78; PULSE 71–91; RESP 18–20; TEMP 36.5–36.6; O2SAT 97–98; BMI 34.7
[2023-05-11 09:17] LABS: Basophils % 0.4 % (0.1-2.0); Eosinophils # 0.3 K/mm3 (0.0-0.4); Eosinophils % 4.6 % (0.1-12.0); Hematocrit 25.1 % (37.0-47.0); Hemoglobin 7.7 g/dL (12.2-16.2); Lymphocytes # 0.4 K/mm3 (0.7-4.5); Lymphocytes % 5.7 % (10-50); Mean Corpuscular HGB Conc 30.8 g/dL (31.8-35.4); Mean Corpuscular Hemoglobin 25.9 pg (27.0-31.2); Mean Corpuscular Volume 84.1 fl (81-99); Monocytes # 0.4 K/mm3 (0.1-1.0); Monocytes % 5.8 % (1.7-9.3); Neutrophils # 5.7 K/mm3 (1.8-7.8); Neutrophils % 83.4 % (37.0-80.0); Platelet Count 266 K/mm3 (142-424); Red Blood Count 2.98 M/mm3 (4.20-5.40); Red Cell Distribution Width 20.2 % (11.5-17.5); White Blood Count 6.9 K/mm3 (4.8-10.8)
[2023-05-11 09:54] LABS: Iron 37 ug/dL (37-170)
[2023-05-11 10:04] LABS: Total Iron Binding Capacity 521 ug/dL (265-497)
--- NOTE | 2023-05-11 10:07 | PC.NURSE ---
1001 05/11/23 Pt reports feeling bad today, pt reports feeling tired and achy all over, weak, and dizzy. Labs drawn per md order and hgb-7.7 today. Pt requests a blood transfusion. Contacted and asked if a blood transfusion should be ordered. Md ordered 1 unit of prbc's today for symptomatic anemia.
[2023-05-11 10:25] LABS: Ferritin 30.8 ng/ml (11.1-264)
--- NOTE | 2023-05-11 12:04 | PC.NURSE ---
1144 05/11/23, contacted lab staff to check if type and crossmatch for blood looked ok (ie. no antibodies). Lab staff stated that it looked as if it was going to be ok. pt premedicated per md order.
== END 2023-05-11 15:47 | disposition home or self-care (01) ==
LOC: INF 08:44
PROVIDERS: PCP Internal Medicine Adolescent Medicine; Visit Provider Internal Medicine Medical Oncology
DX: D64.9 Anemia, unspecified (principal)
CPT/HCPCS: 36430; 82728; 83540; 83550; 85025; 86850; J1642; P9016

== ENCOUNTER 2023-05-17 12:05 | Outpatient (CLI) | payer MEDICARE, MEDICAID, SELFPAY ==
[2023-05-17 12:35] VITALS: BMI 34.8
[2023-05-17 12:39] VITALS: BP 114/65; PULSE 80; RESP 16; TEMP 36.7; O2SAT 95
[2023-05-17 13:06] LABS: Basophils % 0.4 % (0.1-2.0); Eosinophils # 0.3 K/mm3 (0.0-0.4); Eosinophils % 3.7 % (0.1-12.0); Hematocrit 25.7 % (37.0-47.0); Hemoglobin 7.9 g/dL (12.2-16.2); Lymphocytes # 0.6 K/mm3 (0.7-4.5); Lymphocytes % 7.8 % (10-50); Mean Corpuscular HGB Conc 30.8 g/dL (31.8-35.4); Mean Corpuscular Hemoglobin 25.8 pg (27.0-31.2); Mean Platelet Volume 8.2 fl (7.4-10.4); Monocytes # 0.5 K/mm3 (0.1-1.0); Monocytes % 6.3 % (1.7-9.3); Neutrophils # 5.9 K/mm3 (1.8-7.8); Neutrophils % 81.8 % (37.0-80.0); Platelet Count 283 K/mm3 (142-424); Red Blood Count 3.06 M/mm3 (4.20-5.40); Red Cell Distribution Width 20.4 % (11.5-17.5); White Blood Count 7.3 K/mm3 (4.8-10.8)
[2023-05-17 13:24] VITALS: BP 130/69; PULSE 73; RESP 16; TEMP 36.7; O2SAT 95
== END 2023-05-17 13:30 | disposition home or self-care (01) ==
LOC: INF 12:06
PROVIDERS: PCP Internal Medicine Adolescent Medicine; Visit Provider Internal Medicine Medical Oncology
DX: D64.9 Anemia, unspecified (principal); E86.0 Dehydration
CPT/HCPCS: 85025; 96365; J1439; J1642

== ENCOUNTER 2023-05-19 08:27 | Outpatient (CLI) | payer MEDICARE, MEDICAID, SELFPAY ==
[2023-05-19] VITALS (11 sets, daily range): BP systolic 98–117; BP diastolic 52–68; PULSE 74–80; RESP 20; TEMP 36.7–36.9; O2SAT 93–94; BMI 35.0
[2023-05-19 08:56] LABS: Basophils % 0.4 % (0.1-2.0); Eosinophils # 0.3 K/mm3 (0.0-0.4); Eosinophils % 3.6 % (0.1-12.0); Hematocrit 22.7 % (37.0-47.0); Hemoglobin 7.9 g/dL (12.2-16.2); Lymphocytes # 0.4 K/mm3 (0.7-4.5); Lymphocytes % 4.6 % (10-50); Mean Corpuscular HGB Conc 34.8 g/dL (31.8-35.4); Mean Corpuscular Hemoglobin 29.4 pg (27.0-31.2); Mean Corpuscular Volume 84.6 fl (81-99); Mean Platelet Volume 8.5 fl (7.4-10.4); Monocytes # 0.5 K/mm3 (0.1-1.0); Monocytes % 5.4 % (1.7-9.3); Neutrophils # 7.4 K/mm3 (1.8-7.8); Neutrophils % 86.1 % (37.0-80.0); Platelet Count 258 K/mm3 (142-424); Red Blood Count 2.68 M/mm3 (4.20-5.40); Red Cell Distribution Width 20.9 % (11.5-17.5); White Blood Count 8.6 K/mm3 (4.8-10.8)
[2023-05-19 09:09] LABS: MANUAL DIFFERENTIAL MANUAL DIFFERENTIAL (MANUAL DIFF)
[2023-05-19 09:34] LABS: Eosinophils % 1 % (0-3); Lymphocytes % 4 % (10-50); Monocytes % 6 % (2-9); Neutrophils % 89 % (42-76); Total Cells Counted 100
[2023-05-19 09:35] LABS: Platelet Estimate Normal; RBC Morphology Normal
--- NOTE | 2023-05-19 09:46 | PC.NURSE ---
Pt contacted outpt clinic and states that she feels that she is low on blood. Pt states that she has been experiencing symptomatic anemia symptoms, ie. extreme fatigue, sob with activity, and body aches. Contacted MD concerning pt symptoms, repeat cbc ordered and [id number]-5.9. Md ordered 1 unit prbc's to be transfused today for symptomatic anemia.
--- NOTE | 2023-05-19 10:25 | PC.NURSE ---
05/19/23 3749 Lab staff present to witness type and crossmatch blood drawn for labs as ordered. Lab to contact staff once unit is ready for transfusion. Consent for blood transfusion obtained from pt.
--- NOTE | 2023-05-19 10:27 | PC.NURSE ---
05/19/23 1005 Pt premedicated at this time per md order
== END 2023-05-19 15:09 | disposition home or self-care (01) ==
LOC: INF 08:28
PROVIDERS: PCP Internal Medicine Adolescent Medicine; Visit Provider Internal Medicine Medical Oncology
DX: D64.9 Anemia, unspecified (principal); R53.83 Other fatigue; R06.09 Other forms of dyspnea; Z45.2 Encounter for adjustment and management of vascular access device
CPT/HCPCS: 36430; 85007; 85025; 86850; J1642; P9016

== ENCOUNTER 2023-05-24 10:28 | Outpatient (CLI) | payer MEDICARE, MEDICAID, SELFPAY ==
[2023-05-24 10:34] VITALS: BMI 35.0
[2023-05-24 10:46] VITALS: BP 107/46; PULSE 76; RESP 18; TEMP 36.4; O2SAT 96
[2023-05-24 10:59] LABS: Basophils % 0.2 % (0.1-2.0); Eosinophils # 0.2 K/mm3 (0.0-0.4); Eosinophils % 3.5 % (0.1-12.0); Hematocrit 29.8 % (37.0-47.0); Hemoglobin 8.8 g/dL (12.2-16.2); Lymphocytes # 0.3 K/mm3 (0.7-4.5); Lymphocytes % 4.3 % (10-50); Mean Corpuscular HGB Conc 29.5 g/dL (31.8-35.4); Mean Corpuscular Hemoglobin 26.1 pg (27.0-31.2); Mean Corpuscular Volume 88.4 fl (81-99); Mean Platelet Volume 8.8 fl (7.4-10.4); Monocytes # 0.3 K/mm3 (0.1-1.0); Monocytes % 4.5 % (1.7-9.3); Neutrophils # 5.8 K/mm3 (1.8-7.8); Neutrophils % 87.4 % (37.0-80.0); Platelet Count 220 K/mm3 (142-424); Red Blood Count 3.37 M/mm3 (4.20-5.40); Red Cell Distribution Width 23.5 % (11.5-17.5); White Blood Count 6.7 K/mm3 (4.8-10.8)
[2023-05-24 11:01] LABS: MANUAL DIFFERENTIAL MANUAL DIFFERENTIAL (MANUAL DIFF)
[2023-05-24 11:30] VITALS: BP 107/69; PULSE 78; RESP 18; O2SAT 97
[2023-05-24 12:46] LABS: Lymphocytes % 2 % (10-50); Monocytes % 6 % (2-9); Neutrophils % 92 % (42-76); Total Cells Counted 100
[2023-05-24 12:47] LABS: Platelet Estimate Normal
[2023-05-24 12:48] LABS: Hypochromasia 1+
== END 2023-05-24 11:36 | disposition home or self-care (01) ==
LOC: INF 10:29
PROVIDERS: PCP Internal Medicine Adolescent Medicine; Visit Provider Internal Medicine Medical Oncology
DX: D64.9 Anemia, unspecified (principal)
CPT/HCPCS: 85007; 85025; 96365; J1439; J1642

== ENCOUNTER 2023-06-01 08:32 | Outpatient (CLI) | payer MEDICARE, MEDICAID, SELFPAY ==
[2023-06-01 08:38] VITALS: BMI 35.0
[2023-06-01 09:11] LABS: PHA INR Fingerstick 3.8 (0.9-1.1)
[2023-06-01 09:24] LABS: Basophils % 0.4 % (0.1-2.0); Eosinophils # 0.3 K/mm3 (0.0-0.4); Eosinophils % 4.6 % (0.1-12.0); Hematocrit 33.4 % (37.0-47.0); Lymphocytes # 0.4 K/mm3 (0.7-4.5); Lymphocytes % 5.5 % (10-50); Mean Corpuscular Hemoglobin 27.2 pg (27.0-31.2); Mean Corpuscular Volume 90.7 fl (81-99); Mean Platelet Volume 8.6 fl (7.4-10.4); Monocytes # 0.4 K/mm3 (0.1-1.0); Monocytes % 5.7 % (1.7-9.3); Neutrophils # 5.5 K/mm3 (1.8-7.8); Neutrophils % 83.7 % (37.0-80.0); Platelet Count 270 K/mm3 (142-424); Red Blood Count 3.69 M/mm3 (4.20-5.40); Red Cell Distribution Width 23.2 % (11.5-17.5); White Blood Count 6.6 K/mm3 (4.8-10.8)
== END 2023-06-01 09:12 ==
LOC: INF 08:33
PROVIDERS: PCP Internal Medicine Adolescent Medicine; Visit Provider Internal Medicine Medical Oncology
DX: D64.9 Anemia, unspecified (principal); Z79.01 Long term (current) use of anticoagulants; Z45.2 Encounter for adjustment and management of vascular access device
CPT/HCPCS: 36591; 85025; 85610; 99211; G0463; J1642

== ENCOUNTER 2023-06-08 08:43 | Outpatient (CLI) | payer MEDICARE, MEDICAID, SELFPAY ==
[2023-06-08 08:43] VITALS: BMI 34.7
[2023-06-08 09:12] LABS: Basophils % 0.5 % (0.1-2.0); Eosinophils # 0.3 K/mm3 (0.0-0.4); Hematocrit 29.5 % (37.0-47.0); Hemoglobin 9.1 g/dL (12.2-16.2); Lymphocytes # 0.4 K/mm3 (0.7-4.5); Lymphocytes % 6.3 % (10-50); Mean Corpuscular HGB Conc 30.8 g/dL (31.8-35.4); Mean Corpuscular Hemoglobin 27.5 pg (27.0-31.2); Mean Corpuscular Volume 89.5 fl (81-99); Mean Platelet Volume 8.5 fl (7.4-10.4); Monocytes # 0.4 K/mm3 (0.1-1.0); Monocytes % 5.8 % (1.7-9.3); Neutrophils # 5.2 K/mm3 (1.8-7.8); Neutrophils % 82.4 % (37.0-80.0); Platelet Count 227 K/mm3 (142-424); Red Cell Distribution Width 22.1 % (11.5-17.5); White Blood Count 6.3 K/mm3 (4.8-10.8)
== END 2023-06-08 09:37 | disposition home or self-care (01) ==
LOC: INF 08:43
PROVIDERS: PCP Internal Medicine Adolescent Medicine; Visit Provider Internal Medicine Medical Oncology
DX: D64.9 Anemia, unspecified (principal); Z45.2 Encounter for adjustment and management of vascular access device
CPT/HCPCS: 36591; 85025; J1642

== ENCOUNTER 2023-06-15 09:02 | Outpatient (CLI) | payer MEDICARE, MEDICAID, SELFPAY ==
[2023-06-15 09:21] VITALS: BMI 35.0
[2023-06-15 09:37] LABS: Basophils % 0.3 % (0.1-2.0); Eosinophils # 0.2 K/mm3 (0.0-0.4); Hematocrit 27.6 % (37.0-47.0); Hemoglobin 8.5 g/dL (12.2-16.2); Lymphocytes # 0.4 K/mm3 (0.7-4.5); Lymphocytes % 3.6 % (10-50); Mean Corpuscular HGB Conc 30.7 g/dL (31.8-35.4); Mean Corpuscular Hemoglobin 27.9 pg (27.0-31.2); Mean Corpuscular Volume 90.9 fl (81-99); Mean Platelet Volume 8.7 fl (7.4-10.4); Monocytes # 0.6 K/mm3 (0.1-1.0); Monocytes % 5.3 % (1.7-9.3); Neutrophils # 9.6 K/mm3 (1.8-7.8); Neutrophils % 88.8 % (37.0-80.0); Platelet Count 232 K/mm3 (142-424); Red Blood Count 3.04 M/mm3 (4.20-5.40); Red Cell Distribution Width 21.1 % (11.5-17.5); White Blood Count 10.8 K/mm3 (4.8-10.8)
[2023-06-15 09:40] LABS: MANUAL DIFFERENTIAL MANUAL DIFFERENTIAL (MANUAL DIFF)
[2023-06-15 09:46] LABS: Eosinophils % 1 % (0-3); Lymphocytes % 3 % (10-50); Monocytes % 4 % (2-9); Neutrophils % 92 % (42-76); Total Cells Counted 100
[2023-06-15 09:47] LABS: Platelet Estimate Normal; RBC Morphology Normal
[2023-06-15 11:20] LABS: PHA INR Fingerstick 2.6 (0.9-1.1)
== END 2023-06-15 09:55 | disposition home or self-care (01) ==
PROVIDERS: PCP Internal Medicine Adolescent Medicine; Visit Provider Internal Medicine Medical Oncology
DX: D64.9 Anemia, unspecified (principal); Z79.01 Long term (current) use of anticoagulants; Z45.2 Encounter for adjustment and management of vascular access device
CPT/HCPCS: 36591; 85007; 85025; 85610; 99211; G0463; J1642

== ENCOUNTER 2023-06-23 09:15 | Outpatient (CLI) | payer MEDICARE, MEDICAID, SELFPAY ==
[2023-06-23] VITALS (10 sets, daily range): BP systolic 100–119; BP diastolic 52–72; PULSE 71–84; RESP 18; TEMP 36.4–36.7; O2SAT 96–97; BMI 35.0
[2023-06-23 10:05] LABS: Basophils % 0.2 % (0.1-2.0); Eosinophils # 0.2 K/mm3 (0.0-0.4); Hematocrit 26.5 % (37.0-47.0); Hemoglobin 7.9 g/dL (12.2-16.2); Lymphocytes # 0.4 K/mm3 (0.7-4.5); Lymphocytes % 5.2 % (10-50); Mean Corpuscular HGB Conc 29.6 g/dL (31.8-35.4); Mean Corpuscular Hemoglobin 25.8 pg (27.0-31.2); Mean Corpuscular Volume 87.1 fl (81-99); Mean Platelet Volume 8.7 fl (7.4-10.4); Monocytes # 0.4 K/mm3 (0.1-1.0); Monocytes % 5.7 % (1.7-9.3); Neutrophils # 6.3 K/mm3 (1.8-7.8); Neutrophils % 85.8 % (37.0-80.0); Platelet Count 286 K/mm3 (142-424); Red Blood Count 3.05 M/mm3 (4.20-5.40); Red Cell Distribution Width 20.1 % (11.5-17.5); White Blood Count 7.4 K/mm3 (4.8-10.8)
[2023-06-23 10:06] LABS: MANUAL DIFFERENTIAL MANUAL DIFFERENTIAL (MANUAL DIFF)
[2023-06-23 10:07] LABS: Chloride 98 mmol/L (98-107); Potassium 3.9 mmoL/L (3.5-5.1); Sodium 138 mmol/L (136-145)
[2023-06-23 10:09] LABS: Blood Urea Nitrogen 34 mg/dl (7-17); Creatinine Clearance Estimated 67 mL/min (50-200); Estimated Glomerular Filt Rate 42 ml/min (>60); GFR (African American) 51 ML/MIN (>60)
[2023-06-23 10:10] LABS: Alanine Aminotransferase 16 U/L (12-78); Albumin Level 4.1 g/dl (3.5-5.0); Albumin/Globulin Ratio 1.5 (1.1-1.8); Alkaline Phosphatase 99 U/L (38-126); Anion Gap 10.9 mEq/L (5-15); Aspartate Amino Transferase 21 U/L (14-36); Bilirubin,Total 0.6 mg/dl (0.2-1.3); Carbon Dioxide 33 mmol/L (22.0-30.0); Globulin 2.7 g/dL (1.3-3.2); Glucose 217 mg/dl (74-100); Iron 14 ug/dL (37-170); Total Protein,Serum 6.8 g/dl (6.3-8.2)
[2023-06-23 10:11] LABS: Calcium 9.2 mg/dl (8.4-10.2); Phosphorous 3.5 mg/dl (2.5-4.5)
[2023-06-23 10:20] LABS: Total Iron Binding Capacity 480 ug/dL (265-497)
[2023-06-23 10:26] LABS: Anisocytosis 1+; Hypochromasia 1+; Lymphocytes % 5 % (10-50); Monocytes % 6 % (2-9); Neutrophils % 89 % (42-76); Ovalocytes 1+; Platelet Estimate Normal; Total Cells Counted 100
[2023-06-23 10:44] LABS: Intact Parathyroid Hormone 421.6 pg/mL (7.5-53.5)
[2023-06-23 10:46] LABS: Ferritin 31.9 ng/ml (11.1-264)
--- NOTE | 2023-06-23 11:27 | PC.NURSE ---
06/23/23 1008 Results from labs noted with a Hgb-7.9. Pt presents to clinic today for weekly labs, with complaints of extreme fatigue, dizziness, sob, and body aches. Contacted Dr. Marcelino FIGUEROA and discussed with her results and pt complaints. Order noted for 1 unit of prbc's to be transfused today for symptomatic anemia.
[2023-06-24 10:54] LABS: Calcium, Urine 4.3 mg/dL (Not Estab.)
[2023-06-24 15:19] LABS: Calcium, Ionized 4.7 mg/dL (4.5-5.6)
== END 2023-06-23 15:55 | disposition home or self-care (01) ==
LOC: INF 09:16
PROVIDERS: Surgery Surgical Oncology; PCP Internal Medicine Adolescent Medicine; Visit Provider Internal Medicine Medical Oncology
DX: D64.9 Anemia, unspecified (principal); Z45.2 Encounter for adjustment and management of vascular access device
CPT/HCPCS: 36430; 80053; 82330; 82340; 82728; 83540; 83550; 83970; 84100; 85007; 85025; 86850; J1642; P9016

== ENCOUNTER 2023-06-25 09:23 | Outpatient (CLI) | payer MEDICARE, MEDICAID, SELFPAY ==
[2023-06-25 10:06] VITALS: BP 125/74; PULSE 78; RESP 18; O2SAT 92
[2023-06-25 10:40] VITALS: BP 123/75; PULSE 72; RESP 18; O2SAT 92
== END 2023-06-25 10:50 | disposition home or self-care (01) ==
LOC: INF 09:24
PROVIDERS: PCP Internal Medicine Adolescent Medicine; Visit Provider Internal Medicine Medical Oncology
DX: D59.10 Autoimmune hemolytic anemia, unspecified (principal); D64.9 Anemia, unspecified
CPT/HCPCS: 96365; J1439; J1642

== ENCOUNTER 2023-07-02 09:33 | Outpatient (CLI) | payer MEDICARE, MEDICAID, SELFPAY ==
[2023-07-02 09:38] VITALS: BMI 35.0
[2023-07-02 09:56] VITALS: BP 120/58; PULSE 71; RESP 18; TEMP 36.7; O2SAT 97
[2023-07-02 09:59] LABS: Basophils % 0.3 % (0.1-2.0); Eosinophils # 0.3 K/mm3 (0.0-0.4); Hematocrit 28.6 % (37.0-47.0); Hemoglobin 8.6 g/dL (12.2-16.2); Lymphocytes # 0.4 K/mm3 (0.7-4.5); Lymphocytes % 5.4 % (10-50); Mean Corpuscular HGB Conc 30.2 g/dL (31.8-35.4); Mean Corpuscular Hemoglobin 26.8 pg (27.0-31.2); Mean Corpuscular Volume 88.8 fl (81-99); Mean Platelet Volume 8.1 fl (7.4-10.4); Monocytes # 0.3 K/mm3 (0.1-1.0); Monocytes % 4.2 % (1.7-9.3); Neutrophils # 5.7 K/mm3 (1.8-7.8); Neutrophils % 85.1 % (37.0-80.0); Platelet Count 211 K/mm3 (142-424); Red Blood Count 3.22 M/mm3 (4.20-5.40); Red Cell Distribution Width 22.2 % (11.5-17.5); White Blood Count 6.6 K/mm3 (4.8-10.8)
[2023-07-02 10:01] LABS: MANUAL DIFFERENTIAL MANUAL DIFFERENTIAL (MANUAL DIFF)
[2023-07-02 10:45] VITALS: BP 118/57; PULSE 76; RESP 18; O2SAT 97
[2023-07-02 11:00] LABS: Eosinophils % 1 % (0-3); Lymphocytes % 3 % (10-50); Monocytes % 7 % (2-9); Neutrophils % 88 % (42-76); Total Cells Counted 100
[2023-07-02 11:05] LABS: Hypochromasia 1+; Platelet Estimate Normal
== END 2023-07-02 10:45 | disposition home or self-care (01) ==
LOC: INF 09:33
PROVIDERS: PCP Internal Medicine Adolescent Medicine; Visit Provider Internal Medicine Medical Oncology
DX: D64.9 Anemia, unspecified (principal); D59.10 Autoimmune hemolytic anemia, unspecified; D63.1 Anemia in chronic kidney disease; N18.4 Chronic kidney disease, stage 4 (severe)
CPT/HCPCS: 85007; 85025; 96365; J1439; J1642

== ENCOUNTER 2023-07-09 08:51 | Outpatient (CLI) | payer MEDICARE, MEDICAID, SELFPAY ==
[2023-07-09 08:55] VITALS: BMI 35.0
[2023-07-09 09:20] LABS: Basophils % 0.3 % (0.1-2.0); Eosinophils # 0.2 K/mm3 (0.0-0.4); Eosinophils % 3.6 % (0.1-12.0); Hematocrit 31.2 % (37.0-47.0); Hemoglobin 9.6 g/dL (12.2-16.2); Lymphocytes # 0.4 K/mm3 (0.7-4.5); Lymphocytes % 5.6 % (10-50); Mean Corpuscular HGB Conc 30.6 g/dL (31.8-35.4); Mean Corpuscular Hemoglobin 28.2 pg (27.0-31.2); Mean Platelet Volume 8.6 fl (7.4-10.4); Monocytes # 0.4 K/mm3 (0.1-1.0); Monocytes % 5.3 % (1.7-9.3); Neutrophils # 5.6 K/mm3 (1.8-7.8); Neutrophils % 85.2 % (37.0-80.0); Platelet Count 198 K/mm3 (142-424); Red Blood Count 3.39 M/mm3 (4.20-5.40); Red Cell Distribution Width 22.1 % (11.5-17.5); White Blood Count 6.6 K/mm3 (4.8-10.8)
[2023-07-09 09:23] LABS: MANUAL DIFFERENTIAL MANUAL DIFFERENTIAL (MANUAL DIFF)
[2023-07-09 09:39] LABS: Eosinophils % 2 % (0-3); Lymphocytes % 5 % (10-50); Monocytes % 4 % (2-9); Neutrophils % 89 % (42-76); Platelet Estimate Normal; Total Cells Counted 100
[2023-07-09 09:40] LABS: Hypochromasia 1+; Ovalocytes 1+
--- NOTE | 2023-07-09 09:59 | XR_ITS ---
FINAL REPORT TECHNIQUE: Bone mineral density was calculated of the lumbar spine and hip. CLINICAL HISTORY: HYPERPARATHYROIDISM,POST MENOPAUSAL FINDINGS: Using L1-4, the bone mineral density of the spine is 0.899 g/cm2, corresponding to T-score of -1.3. Using the left hip, the bone mineral density of the femoral neck is 0.684 g/cm2, corresponding to a T-score of -2.1. Using the right hip, the bone mineral density of the femoral neck is 0.674 g/cm2, corresponding to a T-score of -1.6. NOTE: T-score: Standard deviation compared with peak bone mass of young adult mean. *Following the recommendations of the International Society of Bone densitometry, classification of hip BMD is based on the lower of two T-scores; total hip or femoral neck. IMPRESSION: Diminished bone mineral density consistent with low bone density. FRAX data reports 9% risk for major osteoporotic fracture and 1.1% for hip fracture. Reviewed, Interpreted and Dictated by Pravin Crespo III, MD Transcribed by Beatriz Sauer Authenticated and [facility]
[2023-07-09 11:45] LABS: Hemoglobin A1C 6.1 % (4.0-6.0)
== END 2023-07-09 09:15 | disposition home or self-care (01) ==
LOC: INF 08:51
PROVIDERS: PCP Internal Medicine Adolescent Medicine; Visit Provider Internal Medicine Medical Oncology
DX: D64.9 Anemia, unspecified (principal); E11.9 Type 2 diabetes mellitus without complications; E21.3 Hyperparathyroidism, unspecified; Z45.2 Encounter for adjustment and management of vascular access device
CPT/HCPCS: 36591; 77080; 83036; 85007; 85025; J1642

== ENCOUNTER 2023-07-15 09:08 | Outpatient (CLI) | payer MEDICARE, MEDICAID, SELFPAY ==
[2023-07-15 09:14] VITALS: BMI 35.0
[2023-07-15 09:47] LABS: Microscopic, Urine URINE MICROSCOPIC (MICROSCOPIC)
[2023-07-15 09:50] LABS: Basophils % 0.5 % (0.1-2.0); Eosinophils # 0.2 K/mm3 (0.0-0.4); Eosinophils % 3.4 % (0.1-12.0); Hematocrit 31.6 % (37.0-47.0); Hemoglobin 9.7 g/dL (12.2-16.2); Lymphocytes # 0.4 K/mm3 (0.7-4.5); Lymphocytes % 5.5 % (10-50); Mean Corpuscular HGB Conc 30.7 g/dL (31.8-35.4); Mean Corpuscular Hemoglobin 28.3 pg (27.0-31.2); Mean Corpuscular Volume 92.2 fl (81-99); Mean Platelet Volume 8.2 fl (7.4-10.4); Monocytes # 0.3 K/mm3 (0.1-1.0); Monocytes % 4.8 % (1.7-9.3); Neutrophils # 5.8 K/mm3 (1.8-7.8); Neutrophils % 85.9 % (37.0-80.0); Platelet Count 188 K/mm3 (142-424); Red Blood Count 3.43 M/mm3 (4.20-5.40); Red Cell Distribution Width 21.2 % (11.5-17.5); White Blood Count 6.7 K/mm3 (4.8-10.8)
[2023-07-15 09:53] LABS: MANUAL DIFFERENTIAL MANUAL DIFFERENTIAL (MANUAL DIFF)
[2023-07-15 09:54] LABS: Chloride 97 mmol/L (98-107); Potassium 3.9 mmoL/L (3.5-5.1); Sodium 138 mmol/L (136-145)
[2023-07-15 09:57] LABS: Alanine Aminotransferase 20 U/L (12-78); Albumin/Globulin Ratio 1.3 (1.1-1.8); Alkaline Phosphatase 113 U/L (38-126); Anion Gap 12.9 mEq/L (5-15); Aspartate Amino Transferase 28 U/L (14-36); Bilirubin,Total 0.6 mg/dl (0.2-1.3); Blood Urea Nitrogen 42 mg/dl (7-17); Calcium 9.2 mg/dl (8.4-10.2); Carbon Dioxide 32 mmol/L (22.0-30.0); Creatinine Clearance Estimated 67 mL/min (50-200); Estimated Glomerular Filt Rate 42 ml/min (>60); GFR (African American) 51 ML/MIN (>60); Globulin 3.1 g/dL (1.3-3.2); Glucose 213 mg/dl (74-100); Total Protein,Serum 7.1 g/dl (6.3-8.2)
[2023-07-15 09:59] LABS: Appearance,Urine CLEAR (Clear); Bilirubin,Urine Negative (Negative); Blood, Urine Negative (Negative); Color,Urine YELLOW (Yellow); Glucose,Urine (UA) Negative (Negative); Ketones,Urine Negative (Negative); Leukocyte Esterase,Urine TRACE (Negative); Nitrate,Urine Negative (Negative); Protein,Urine Negative (Negative); Urobilinogen,Urine 0.2 EU/dl (0.2)
[2023-07-15 10:12] LABS: Lymphocytes % 3 % (10-50); Monocytes % 1 % (2-9); Neutrophils % 96 % (42-76); Total Cells Counted 100
[2023-07-15 10:15] LABS: Creatinine,Urine Random 37 mg/dL (Not Estab.)
[2023-07-15 10:23] LABS: Squamous Epithelial Cell,Urine Occasional #/hpf (0-5)
[2023-07-15 10:27] LABS: Platelet Estimate Normal; RBC Morphology Normal
[2023-07-15 11:12] LABS: 25-OH Vitamin D, Total 41.7 ng/mL (30-100)
== END 2023-07-15 09:35 | disposition home or self-care (01) ==
LOC: INF 09:10
PROVIDERS: PCP Internal Medicine Adolescent Medicine; Visit Provider Internal Medicine Nephrology
DX: N17.9 Acute kidney failure, unspecified; D64.9 Anemia, unspecified; N18.30 Chronic kidney disease, stage 3 unspecified; E11.22 Type 2 diabetes mellitus with diabetic chronic kidney disease; I10 Essential (primary) hypertension; E55.9 Vitamin D deficiency, unspecified; E21.3 Hyperparathyroidism, unspecified
CPT/HCPCS: 36591; 80053; 81001; 82306; 82570; 83036; 83970; 84155; 84550; 85007; 85025; J1642

== ENCOUNTER 2023-07-27 09:35 | Outpatient (CLI) | payer MEDICARE, MEDICAID, SELFPAY ==
[2023-07-27 09:54] VITALS: BMI 34.3
[2023-07-27 10:19] LABS: Basophils % 0.4 % (0.1-2.0); Eosinophils # 0.3 K/mm3 (0.0-0.4); Hematocrit 29.7 % (37.0-47.0); Hemoglobin 9.1 g/dL (12.2-16.2); Lymphocytes # 0.4 K/mm3 (0.7-4.5); Lymphocytes % 6.2 % (10-50); Mean Corpuscular HGB Conc 30.7 g/dL (31.8-35.4); Mean Corpuscular Hemoglobin 28.1 pg (27.0-31.2); Mean Corpuscular Volume 91.5 fl (81-99); Mean Platelet Volume 8.7 fl (7.4-10.4); Monocytes # 0.3 K/mm3 (0.1-1.0); Monocytes % 4.7 % (1.7-9.3); Neutrophils # 5.3 K/mm3 (1.8-7.8); Neutrophils % 84.6 % (37.0-80.0); Platelet Count 226 K/mm3 (142-424); Red Blood Count 3.25 M/mm3 (4.20-5.40); Red Cell Distribution Width 19.6 % (11.5-17.5); White Blood Count 6.3 K/mm3 (4.8-10.8)
[2023-07-27 10:26] LABS: Iron 43 ug/dL (37-170)
[2023-07-27 10:35] LABS: Total Iron Binding Capacity 448 ug/dL (265-497)
[2023-07-27 11:03] LABS: Ferritin 45.1 ng/ml (11.1-264)
--- NOTE | 2023-07-27 13:25 | PC.NURSE ---
1040-pt d/c home no blood products today; hgb 9.1
[2023-07-27 14:31] LABS: PHA INR Fingerstick 2.2 (0.9-1.1)
== END 2023-07-27 10:40 | disposition home or self-care (01) ==
LOC: INF 09:36
PROVIDERS: PCP Internal Medicine Adolescent Medicine; Visit Provider Internal Medicine Medical Oncology
DX: D64.9 Anemia, unspecified (principal); Z79.01 Long term (current) use of anticoagulants; Z51.12 Encounter for antineoplastic immunotherapy; Z51.81 Encounter for therapeutic drug level monitoring
CPT/HCPCS: 36591; 82728; 83540; 83550; 85025; 85610; 99211; G0463; J1642

== ENCOUNTER 2023-07-29 10:24 | Outpatient (CLI) | payer MEDICARE, MEDICAID, SELFPAY ==
[2023-07-29 10:47] VITALS: BP 129/73; PULSE 76; RESP 16; TEMP 36.8; O2SAT 95
[2023-07-29 11:30] VITALS: BP 119/75; PULSE 81; RESP 18; O2SAT 94
== END 2023-07-29 11:35 | disposition home or self-care (01) ==
LOC: INF 10:27
PROVIDERS: PCP Internal Medicine Adolescent Medicine; Visit Provider Internal Medicine Medical Oncology
DX: D50.9 Iron deficiency anemia, unspecified (principal); Z45.2 Encounter for adjustment and management of vascular access device
CPT/HCPCS: 96365; J1439; J1642

== ENCOUNTER 2023-08-05 09:07 | Outpatient (CLI) | payer MEDICARE, MEDICAID, SELFPAY ==
[2023-08-05 09:16] VITALS: BMI 34.3
[2023-08-05 09:45] VITALS: BP 128/72; PULSE 72; RESP 20; O2SAT 97
[2023-08-05 09:53] LABS: Basophils % 0.3 % (0.1-2.0); Eosinophils # 0.3 K/mm3 (0.0-0.4); Eosinophils % 4.2 % (0.1-12.0); Hematocrit 32.3 % (37.0-47.0); Hemoglobin 9.7 g/dL (12.2-16.2); Lymphocytes # 0.4 K/mm3 (0.7-4.5); Lymphocytes % 5.5 % (10-50); Mean Corpuscular Hemoglobin 27.6 pg (27.0-31.2); Mean Platelet Volume 8.1 fl (7.4-10.4); Monocytes # 0.4 K/mm3 (0.1-1.0); Monocytes % 5.2 % (1.7-9.3); Neutrophils # 5.9 K/mm3 (1.8-7.8); Neutrophils % 84.8 % (37.0-80.0); Platelet Count 230 K/mm3 (142-424); Red Blood Count 3.51 M/mm3 (4.20-5.40); Red Cell Distribution Width 20.4 % (11.5-17.5)
[2023-08-05 10:20] VITALS: BP 131/70; PULSE 80; RESP 20; O2SAT 98
== END 2023-08-05 10:30 | disposition home or self-care (01) ==
LOC: INF 09:08
PROVIDERS: PCP Internal Medicine Adolescent Medicine; Visit Provider Internal Medicine Medical Oncology
DX: D50.9 Iron deficiency anemia, unspecified (principal); Z45.2 Encounter for adjustment and management of vascular access device
CPT/HCPCS: 85025; 96365; J1439; J1642

== ENCOUNTER 2023-08-12 17:44 | Emergency (ER) | payer MEDICARE, MEDICAID, SELFPAY ==
[2023-08-12] VITALS (11 sets, daily range): BP systolic 110–138; BP diastolic 58–115; PULSE 65–94; RESP 15–22; TEMP 36.6–36.8; O2SAT 95–98; BMI 35.9; BMI 36.2
--- NOTE | 2023-08-12 18:13 | EXP.UTC ---
Discharge Plan Disposition Patient Disposition: Still a Patient Prescriptions Prescriptions: No Action aspirin [Adult Low Dose Aspirin] 81 mg tablet,delayed release (DR/EC) 81 mg PO DAILY oxycodone-acetaminophen [Percocet] 10-325 mg tablet 1 tab PO TIDP PRN (Reason: Moderate Pain) famotidine [Pepcid] 20 mg tablet 20 mg PO DAILYP PRN (Reason: gerd) Rx Instructions: AT DINNER TIME calcitriol 0.25 mcg capsule 0.25 mcg PO Q48H colchicine (gout) [Mitigare] 0.6 mg capsule 0.6 mg PO DAILYP PRN (Reason: gout) (DME) blood-glucose meter [True Metrix Glucose Meter] Misc 1 each .ROUTE .MEDSUPPLY Qty: 1 Rx Instructions: As directed (DME) True Metrix Glucose Test Strip Strip 1 strip .ROUTE .MEDSUPPLY Qty: 10 Rx Instructions: As directed (DME) lancets [Lancets,Ultra Thin] 26 gauge misc 1 gauge .ROUTE .MEDSUPPLY Qty: 100 Rx Instructions: As directed fluticasone propionate [Flovent HFA] 110 mcg/actuation HFA aerosol inhaler 1 inh inhalation BID alprazolam [Xanax] 0.5 mg tablet 0.5 mg PO TIDP PRN (Reason: Anxiety) citalopram 40 mg tablet 40 mg PO DAILY magnesium 250 mg tablet 250 mg PO DAILY PRN (Reason: SUPPLEMENT) metolazone 2.5 mg tablet 2.5 mg PO BID PRN (Reason: fluid) Qty: 30 4RF potassium chloride 20 mEq tablet,ER particles/crystals 20 meq PO DAILY diazepam 5 mg tablet 5 mg PO HS omeprazole 40 mg capsule,delayed release(DR/EC) 40 mg PO BID metoprolol succinate 200 mg tablet extended release 24 hr 200 mg PO DAILY Qty: 30 5RF levothyroxine 25 MCG tablet 25 mcg PO DAILYDM ergocalciferol (vitamin D2) 50,000 UNIT capsule 50,000 units PO MONTHLY Patient Comments: TAKE 1 CAPSULE BY MOUTH ONCE MONTHLY dexlansoprazole 60 MG capsule,biphase delayed releas 60 mg PO DAILY Patient Comments: TAKE (1) CAPSULE BY MOUTH ONCE A DAY. Rx Instructions: IN THE MORNING warfarin 5 mg tablet 5 mg PO DAILY Patient Comments: Rx Instructions: DAILY EXCEPT FRIDAYS THEN TAKES ONLY 2.5MG lidocaine 5 % adhesive patch,medicated 1 patch topical Q24H Rx Instructions: leave on most painful area for up to 12 hrs insulin glargine-lixisenatide 3 ML insulin pen 60 units SQ DAILY bumetanide 1 MG tablet 1 mg PO BIDL levalbuterol HCl 1.25 MG/3 ML solution for nebulization 1.25 mg IH TID PRN (Reason: COPD) methocarbamol 500 mg tablet 500 mg PO TID PRN (Reason: muscle spasm) Qty: 14 0RF febuxostat 40 mg tablet 40 mg PO DAILY Referrals Follow up/Referrals: Reji Castro MD [Primary Care Provider] - See instructions Discharge ED Provider: Lio Davidson [facility] [place] General Chief complaint: Allergic Reaction Stated complaint: poss alergis reaction, SOA Mode of Arrival: Ambulatory Source of Information: Patient Limitations: No Limitations Time Seen by Provider: 08/12/23 18:13 Description of Symptoms (Recalled from Triage Doc. by RN): PATIENT C/O WHEEZING, SOA, LOWER BACK PAIN, PRODUCTIVE COUGH WITH THICK WHITE SPUTUM, AND BODY ACHES. SHE STATES SHE WAS SEEN AT PCP ON WEDNESDAY AND GIVEN MEDICATION BUT HAS GOTTEN WORSE HEENT Symptoms (Recalled from RN notes): No Resp Symptoms (Recalled from RN notes): Yes Skin Symptoms (Recalled from RN notes): No MS Symptoms (Recalled from RN notes): No Functional Status (Recalled from RN notes): WNL History of Present Illness Provider Complaint: Patient states that she was seen by her PCP on Wednesday and he started her on some steriods and a zpack States that since Wednesday she has had a 9 lb weight gain and has hx of CHF State that she feels like she maybe having CHF again because she is feeling worse States that also she has been having wheezing, feeling tight in her chest, feeling SOA and a productive cough with white sputum States that earlier her blood pressure was up and she feels like
--- NOTE | 2023-08-12 18:40 | ECG_ITS ---
APPROVED REPORT Exam: Resting ECG HR:90 bpm ECG Measurements Heart Rate 90 AXES QRSd 108 QRS 76 QT 364 T 74 QTc 411 Conclusion ATRIAL FIBRILLATION INCOMPLETE RIGHT BUNDLE BRANCH BLOCK [90+ ms QRS DURATION, TERMINAL R IN V1/V2, 40+ ms S IN I/aVL/V4/V5/V6] NONSPECIFIC T-WAVE ABNORMALITY ABNORMAL RHYTHM ECG UNCONFIRMED REPORT Electronically signed by : Reji Castro MD 08/13/2023 09:51:54
--- NOTE | 2023-08-12 19:44 | XR_ITS ---
PROCEDURE INFORMATION: Exam: XR Chest Exam date and time: 08/12/2023 8:25 PM Age: 58 years old Clinical indication: Cough TECHNIQUE: Imaging protocol: Radiologic exam of the chest. Views: 2 views. COMPARISON: CT CHEST WO CON 04/03/2023 5:11 PM FINDINGS: Tubes, catheters and devices: Right internal jugular port catheter tip projects at the upper aspect of the superior vena cava. Prosthetic mitral valve. Lungs: Unremarkable. No consolidation. Pleural spaces: Unremarkable. No pleural effusion. No pneumothorax. Heart/Mediastinum: Moderate cardiomegaly. Bones/joints: Sternal sutures. IMPRESSION: No acute findings.
--- NOTE | 2023-08-12 19:45 | HMH.EDGENADL ---
Discharge Plan Disposition Patient Disposition: Home, Self-Care Prescriptions Prescriptions: No Action aspirin [Adult Low Dose Aspirin] 81 mg tablet,delayed release (DR/EC) 81 mg PO DAILY oxycodone-acetaminophen [Percocet] 10-325 mg tablet 1 tab PO TIDP PRN (Reason: Moderate Pain) famotidine [Pepcid] 20 mg tablet 20 mg PO DAILYP PRN (Reason: gerd) Rx Instructions: AT DINNER TIME calcitriol 0.25 mcg capsule 0.25 mcg PO Q48H colchicine (gout) [Mitigare] 0.6 mg capsule 0.6 mg PO DAILYP PRN (Reason: gout) (DME) blood-glucose meter [True Metrix Glucose Meter] Misc 1 each .ROUTE .MEDSUPPLY Qty: 1 Rx Instructions: As directed (DME) True Metrix Glucose Test Strip Strip 1 strip .ROUTE .MEDSUPPLY Qty: 10 Rx Instructions: As directed (DME) lancets [Lancets,Ultra Thin] 26 gauge misc 1 gauge .ROUTE .MEDSUPPLY Qty: 100 Rx Instructions: As directed fluticasone propionate [Flovent HFA] 110 mcg/actuation HFA aerosol inhaler 1 inh inhalation BID alprazolam [Xanax] 0.5 mg tablet 0.5 mg PO TIDP PRN (Reason: Anxiety) citalopram 40 mg tablet 40 mg PO DAILY magnesium 250 mg tablet 250 mg PO DAILY PRN (Reason: SUPPLEMENT) metolazone 2.5 mg tablet 2.5 mg PO BID PRN (Reason: fluid) Qty: 30 4RF potassium chloride 20 mEq tablet,ER particles/crystals 20 meq PO DAILY diazepam 5 mg tablet 5 mg PO HS omeprazole 40 mg capsule,delayed release(DR/EC) 40 mg PO BID metoprolol succinate 200 mg tablet extended release 24 hr 200 mg PO DAILY Qty: 30 5RF levothyroxine 25 MCG tablet 25 mcg PO DAILYDM ergocalciferol (vitamin D2) 50,000 UNIT capsule 50,000 units PO MONTHLY Patient Comments: TAKE 1 CAPSULE BY MOUTH ONCE MONTHLY dexlansoprazole 60 MG capsule,biphase delayed releas 60 mg PO DAILY Patient Comments: TAKE (1) CAPSULE BY MOUTH ONCE A DAY. Rx Instructions: IN THE MORNING warfarin 5 mg tablet 5 mg PO DAILY Patient Comments: Rx Instructions: DAILY EXCEPT FRIDAYS THEN TAKES ONLY 2.5MG lidocaine 5 % adhesive patch,medicated 1 patch topical Q24H Rx Instructions: leave on most painful area for up to 12 hrs insulin glargine-lixisenatide 3 ML insulin pen 60 units SQ DAILY bumetanide 1 MG tablet 1 mg PO BIDL levalbuterol HCl 1.25 MG/3 ML solution for nebulization 1.25 mg IH TID PRN (Reason: COPD) methocarbamol 500 mg tablet 500 mg PO TID PRN (Reason: muscle spasm) Qty: 14 0RF febuxostat 40 mg tablet 40 mg PO DAILY Referrals Follow up/Referrals: Reji Castro MD [Primary Care Provider] - See instructions Activity Restrictions/Add. Instructions Additional Instructions/Restrictions: At this time is felt you are safe to be discharged home. If new or worsening symptoms please do not hesitate to return the emergency department. Please take your metolazone as discussed. Please use your nebulizers as needed. Please call and schedule follow-up with Dr. Castro on Wednesday morning Clinical Impressions Clinical Impression: CHF exacerbation Discharge ED Provider: Lio Davidson General Adult HPI General Chief complaint: Shortness of Breath/Dyspnea Stated complaint: poss alergis reaction, SOA Time Seen by Provider: 08/12/23 18:13 Mode of Arrival: Ambulatory Source of Information: Patient Limitations: No Limitations Description of Symptoms (Recalled from ER Triage Doc. by RN): Presents to ED from [facility] with c/o possible allergic reaction to dexamethasone (SOA) that she recieved Wednesday in the doctors office. Patient reports 10 pound weight gain since wednesday along with lower back pain, lung pain, and feels dry . Hx of anxiety. 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 +Coumadin History of Present Illness HPI narrative: Patient is a 58-year-old female with past medical history of rheumatic heart d
--- NOTE | 2023-08-12 19:54 | PC.NURSE ---
FS [id number]
[2023-08-12 19:59] LABS: POC Glucose,Bedside 498 (70-110)
[2023-08-12 20:10] LABS: Chloride 92 mmol/L (98-107); Eosinophils % 0.1 % (0.1-12.0); Hematocrit 33.1 % (37.0-47.0); Lymphocytes # 0.4 K/mm3 (0.7-4.5); Lymphocytes % 3.1 % (10-50); Mean Corpuscular HGB Conc 30.2 g/dL (31.8-35.4); Mean Corpuscular Hemoglobin 28.7 pg (27.0-31.2); Mean Corpuscular Volume 94.9 fl (81-99); Mean Platelet Volume 8.4 fl (7.4-10.4); Monocytes # 0.5 K/mm3 (0.1-1.0); Monocytes % 4.7 % (1.7-9.3); Neutrophils # 10.5 K/mm3 (1.8-7.8); Neutrophils % 92.2 % (37.0-80.0); Platelet Count 241 K/mm3 (142-424); Red Blood Count 3.49 M/mm3 (4.20-5.40); Red Cell Distribution Width 20.5 % (11.5-17.5); Sodium 132 mmol/L (136-145); White Blood Count 11.4 K/mm3 (4.8-10.8)
[2023-08-12 20:11] LABS: Potassium 4.5 mmoL/L (3.5-5.1)
[2023-08-12 20:13] LABS: Alanine Aminotransferase 26 U/L (12-78); Albumin Level 4.3 g/dl (3.5-5.0); Albumin/Globulin Ratio 1.5 (1.1-1.8); Alkaline Phosphatase 133 U/L (38-126); Anion Gap 16.5 mEq/L (5-15); Aspartate Amino Transferase 28 U/L (14-36); Bilirubin,Total 0.5 mg/dl (0.2-1.3); Blood Urea Nitrogen 56 mg/dl (7-17); Carbon Dioxide 28 mmol/L (22.0-30.0); Creatinine Clearance Estimated 65 mL/min (50-200); Estimated Glomerular Filt Rate 38 ml/min (>60); GFR (African American) 46 ML/MIN (>60); Globulin 2.8 g/dL (1.3-3.2); Total Protein,Serum 7.1 g/dl (6.3-8.2)
[2023-08-12 20:14] LABS: Calcium 8.7 mg/dl (8.4-10.2)
[2023-08-12 20:15] LABS: MANUAL DIFFERENTIAL MANUAL DIFFERENTIAL (MANUAL DIFF)
[2023-08-12 20:19] LABS: Glucose 527 mg/dl (74-100)
--- NOTE | 2023-08-12 20:20 | PC.NURSE ---
advised RT blood is in lab for VBG; advised md of critical glucose level.
[2023-08-12 20:23] LABS: NT Pro Brain Natriuretic Pep. 2130 pg/mL (0-125)
[2023-08-12 20:25] LABS: VBG Base Excess -0.4 mmol/L (-2.4-2.3); VBG HCO3 25.1 mmol/L (23-30); VBG Oxygen Saturation 89.1 % (50-70); VBG PCO2 45.8 mmol/L (35-51); VBG PH 7.36 mmol/L (7.31-7.41); VBG PO2 59.1 mmol/L (28-40); VBG Total CO2 26.5 mmol/L (23-27)
[2023-08-12 20:28] LABS: Troponin I < 0.01 ng/ml (0.00-0.034)
--- NOTE | 2023-08-12 20:34 | PC.NURSE ---
Pt to CT
[2023-08-12 21:05] LABS: Lymphocytes % 10 % (10-50); Monocytes % 1 % (2-9); Neutrophils % 89 % (42-76); Ovalocytes 1+; Platelet Estimate Normal; Total Cells Counted 100
--- NOTE | 2023-08-12 21:22 | PC.NURSE ---
Rounded on patient; pillow provided dimmed lights; call walker within reach of patient
--- NOTE | 2023-08-12 21:42 | PC.NURSE ---
Patient ambulated to and from bathroom; call light within reach of patient
--- NOTE | 2023-08-12 22:13 | PC.NURSE ---
Sending second trop to lab at this time.
--- NOTE | 2023-08-12 22:19 | PC.NURSE ---
pt ambulated to restroom
[2023-08-12 22:51] LABS: Troponin I < 0.01 ng/ml (0.00-0.034)
[2023-10-04 10:10] LABS: POC Glucose,Bedside 582 (70-110)
== END 2023-08-12 23:17 | disposition home or self-care (01) ==
LOC: UTC 18:25 → ER 18:33
PROVIDERS: Emergency Provider Emergency Medicine; PCP Internal Medicine Adolescent Medicine
DX: R06.2 Wheezing (principal); R05.9 Cough, unspecified; M54.50 Low back pain, unspecified; I48.91 Unspecified atrial fibrillation; D64.9 Anemia, unspecified; I25.119 Atherosclerotic heart disease of native coronary artery with unspecified angina pectoris; I42.9 Cardiomyopathy, unspecified; I13.0 Hypertensive heart and chronic kidney disease with heart failure and stage 1 through stage 4 chronic kidney disease, or unspecified chronic kidney disease; I50.23 Acute on chronic systolic (congestive) heart failure; N18.9 Chronic kidney disease, unspecified; E11.22 Type 2 diabetes mellitus with diabetic chronic kidney disease; E78.5 Hyperlipidemia, unspecified; J44.9 Chronic obstructive pulmonary disease, unspecified; K21.9 Gastro-esophageal reflux disease without esophagitis; E03.9 Hypothyroidism, unspecified; Z87.891 Personal history of nicotine dependence
CPT/HCPCS: 71046; 80053; 82803; 82962; 83880; 84484; 85007; 85025; 93005; 96374; 96375; 99285; J1642

== ENCOUNTER 2023-08-20 10:23 | Outpatient (CLI) | payer MEDICARE, MEDICAID, SELFPAY ==
[2023-08-20 10:30] VITALS: BMI 35.0
[2023-08-20 11:00] LABS: Basophils % 0.3 % (0.1-2.0); Eosinophils # 0.6 K/mm3 (0.0-0.4); Eosinophils % 7.1 % (0.1-12.0); Hematocrit 35.2 % (37.0-47.0); Lymphocytes # 0.5 K/mm3 (0.7-4.5); Lymphocytes % 6.4 % (10-50); Mean Corpuscular HGB Conc 31.3 g/dL (31.8-35.4); Mean Corpuscular Volume 92.4 fl (81-99); Mean Platelet Volume 8.3 fl (7.4-10.4); Monocytes # 0.5 K/mm3 (0.1-1.0); Monocytes % 6.5 % (1.7-9.3); Neutrophils # 6.1 K/mm3 (1.8-7.8); Neutrophils % 79.6 % (37.0-80.0); Platelet Count 198 K/mm3 (142-424); Red Blood Count 3.81 M/mm3 (4.20-5.40); Red Cell Distribution Width 18.7 % (11.5-17.5); White Blood Count 7.7 K/mm3 (4.8-10.8)
[2023-08-20 11:56] LABS: Iron 85 ug/dL (37-170); Total Iron Binding Capacity 402 ug/dL (265-497)
[2023-08-20 12:01] LABS: Ferritin 216 ng/ml (11.1-264)
== END 2023-08-20 12:05 | disposition home or self-care (01) ==
LOC: INF 10:25
PROVIDERS: PCP Internal Medicine Adolescent Medicine; Visit Provider Internal Medicine Medical Oncology
DX: D64.9 Anemia, unspecified (principal); D50.9 Iron deficiency anemia, unspecified; Z45.2 Encounter for adjustment and management of vascular access device
CPT/HCPCS: 36591; 82728; 83540; 83550; 85025; J1642

== ENCOUNTER 2023-08-26 09:37 | Outpatient (CLI) | payer MEDICARE, MEDICAID, SELFPAY ==
--- OUTSIDE RECORDS SUMMARY | 2023-08-26 09:41 | XMS_ITS | Clinical Summary ---
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 Name Role Phone oJan Moore MD [ ] Conditions or Problems Problem Name Problem Code Onset Date Status Entry Date Provider Comment Standard Description Annotate Bloodstream infection due to port, subsequent encounter(s) T80.211D (ICD-10-CM) Active 0/08 Lisa L Bloodstream infection due to central venous catheter, subsequent encounter Coag-negative staph sepsis/septic meia A41.1 (ICD-10-CM) Active 0/08 Lisa L Sepsis due to other specified staphylococcus Autoimmune hemolytic anemia, unspecified [id number] (SNOMED CT) Active 0/08 Lisa L Autoimmune hemolytic anemia COPD 97122449 (SNOMED CT) Active 0/08 Lisa L Chronic obstructive lung disease Presence of prosthetic heart valve Z95.2 (ICD-10-CM) Active 0/08 Lisa L
[2023-08-26 10:05] VITALS: BMI 35.0
[2023-08-26 10:31] LABS: Chloride 98 mmol/L (98-107); Potassium 3.8 mmoL/L (3.5-5.1); Sodium 138 mmol/L (136-145)
[2023-08-26 10:34] LABS: Alanine Aminotransferase 27 U/L (12-78); Albumin Level 4.1 g/dl (3.5-5.0); Albumin/Globulin Ratio 1.4 (1.1-1.8); Alkaline Phosphatase 121 U/L (38-126); Anion Gap 11.8 mEq/L (5-15); Aspartate Amino Transferase 30 U/L (14-36); Basophils % 0.6 % (0.1-2.0); Bilirubin,Total 0.5 mg/dl (0.2-1.3); Blood Urea Nitrogen 28 mg/dl (7-17); Carbon Dioxide 32 mmol/L (22.0-30.0); Creatinine Clearance Estimated 73 mL/min (50-200); Eosinophils # 0.5 K/mm3 (0.0-0.4); Eosinophils % 7.6 % (0.1-12.0); Estimated Glomerular Filt Rate 46 ml/min (>60); GFR (African American) 55 ML/MIN (>60); Globulin 2.9 g/dL (1.3-3.2); Hematocrit 33.9 % (37.0-47.0); Hemoglobin 10.5 g/dL (12.2-16.2); Lymphocytes # 0.5 K/mm3 (0.7-4.5); Lymphocytes % 7.6 % (10-50); Mean Corpuscular Hemoglobin 28.7 pg (27.0-31.2); Mean Corpuscular Volume 92.5 fl (81-99); Mean Platelet Volume 8.7 fl (7.4-10.4); Monocytes # 0.4 K/mm3 (0.1-1.0); Monocytes % 5.5 % (1.7-9.3); Neutrophils # 5.5 K/mm3 (1.8-7.8); Neutrophils % 78.7 % (37.0-80.0); Platelet Count 161 K/mm3 (142-424); Red Blood Count 3.66 M/mm3 (4.20-5.40); Red Cell Distribution Width 18.4 % (11.5-17.5)
[2023-08-26 10:35] LABS: Calcium 8.9 mg/dl (8.4-10.2); Glucose 223 mg/dl (74-100)
[2023-08-26 11:37] LABS: PHA INR Fingerstick 3.6 (0.9-1.1)
== END 2023-08-26 10:29 | disposition home or self-care (01) ==
LOC: INF 09:39
PROVIDERS: PCP Internal Medicine Adolescent Medicine; Visit Provider Internal Medicine Medical Oncology
DX: D64.9 Anemia, unspecified (principal); Z79.01 Long term (current) use of anticoagulants; D59.10 Autoimmune hemolytic anemia, unspecified; Z45.2 Encounter for adjustment and management of vascular access device
CPT/HCPCS: 36591; 80053; 85025; 85610; 99211; G0463; J1642

== ENCOUNTER 2023-09-07 10:03 | Outpatient (CLI) | payer MEDICARE, MEDICAID, SELFPAY ==
[2023-09-07 10:19] VITALS: BMI 34.0
[2023-09-07 10:37] LABS: Basophils % 0.1 % (0.1-2.0); Eosinophils # 0.4 K/mm3 (0.0-0.4); Eosinophils % 5.9 % (0.1-12.0); Hematocrit 27.7 % (37.0-47.0); Hemoglobin 9.3 g/dL (12.2-16.2); Lymphocytes # 0.5 K/mm3 (0.7-4.5); Mean Corpuscular HGB Conc 33.4 g/dL (31.8-35.4); Mean Corpuscular Hemoglobin 30.2 pg (27.0-31.2); Mean Corpuscular Volume 90.6 fl (81-99); Mean Platelet Volume 8.3 fl (7.4-10.4); Monocytes # 0.4 K/mm3 (0.1-1.0); Monocytes % 5.9 % (1.7-9.3); Neutrophils # 5.7 K/mm3 (1.8-7.8); Neutrophils % 81.1 % (37.0-80.0); Platelet Count 223 K/mm3 (142-424); Red Blood Count 3.06 M/mm3 (4.20-5.40); Red Cell Distribution Width 17.6 % (11.5-17.5)
[2023-09-07 14:26] LABS: PHA INR Fingerstick 2.9 (0.9-1.1)
== END 2023-09-07 11:14 | disposition home or self-care (01) ==
PROVIDERS: PCP Internal Medicine Adolescent Medicine; Visit Provider Internal Medicine Medical Oncology
DX: D64.9 Anemia, unspecified (principal); Z79.01 Long term (current) use of anticoagulants; Z51.81 Encounter for therapeutic drug level monitoring; Z95.2 Presence of prosthetic heart valve
CPT/HCPCS: 36591; 85025; 85610; 99211; G0463; J1642

== ENCOUNTER 2023-09-14 09:38 | Outpatient (CLI) | payer MEDICARE, MEDICAID, SELFPAY ==
[2023-09-14 09:46] VITALS: BMI 34.0
[2023-09-14 10:06] LABS: Basophils % 0.4 % (0.1-2.0); Eosinophils # 0.2 K/mm3 (0.0-0.4); Eosinophils % 2.6 % (0.1-12.0); Hemoglobin 8.9 g/dL (12.2-16.2); Lymphocytes # 0.5 K/mm3 (0.7-4.5); Lymphocytes % 6.4 % (10-50); Mean Corpuscular HGB Conc 33.5 g/dL (31.8-35.4); Mean Corpuscular Hemoglobin 29.6 pg (27.0-31.2); Mean Corpuscular Volume 88.4 fl (81-99); Monocytes # 0.5 K/mm3 (0.1-1.0); Monocytes % 6.2 % (1.7-9.3); Neutrophils # 6.3 K/mm3 (1.8-7.8); Neutrophils % 84.3 % (37.0-80.0); Platelet Count 256 K/mm3 (142-424); Red Blood Count 3.01 M/mm3 (4.20-5.40); White Blood Count 7.5 K/mm3 (4.8-10.8)
[2023-09-14 10:21] LABS: Hematocrit 26.7 % (37.0-47.0)
[2023-09-14 10:43] LABS: Total Iron Binding Capacity 436 ug/dL (265-497)
[2023-09-14 11:11] LABS: Ferritin 30.8 ng/ml (11.1-264)
[2023-09-14 11:16] LABS: Iron 42 ug/dL (37-170)
== END 2023-09-14 10:35 | disposition home or self-care (01) ==
LOC: INF 09:39
PROVIDERS: PCP Internal Medicine Adolescent Medicine; Visit Provider Internal Medicine Medical Oncology
DX: D64.9 Anemia, unspecified (principal); E61.1 Iron deficiency
CPT/HCPCS: 36591; 82728; 83540; 83550; 85025; J1642

== ENCOUNTER 2023-09-15 13:08 | Outpatient (CLI) | payer MEDICARE, MEDICAID, SELFPAY ==
[2023-09-15 13:33] VITALS: BP 115/74; PULSE 84; RESP 18; O2SAT 94
[2023-09-15 14:15] VITALS: BP 116/69; PULSE 81; RESP 18
== END 2023-09-15 14:15 | disposition home or self-care (01) ==
LOC: INF 13:09
PROVIDERS: PCP Internal Medicine Adolescent Medicine; Visit Provider Internal Medicine Medical Oncology
DX: D59.10 Autoimmune hemolytic anemia, unspecified (principal)
CPT/HCPCS: 96365; J1439; J1642

== ENCOUNTER 2023-09-21 10:02 | Outpatient (CLI) | payer MEDICARE, MEDICAID, SELFPAY ==
[2023-09-21 10:23] LABS: PHA INR Fingerstick 2.5 (0.9-1.1)
[2023-09-21 10:45] VITALS: BP 110/67; PULSE 73; RESP 18; TEMP 36.9; O2SAT 98
[2023-09-21 11:30] VITALS: BP 123/61; PULSE 72; RESP 18; O2SAT 98
== END 2023-09-21 11:35 | disposition home or self-care (01) ==
LOC: ACC 10:31 → INF 10:35
PROVIDERS: PCP Internal Medicine Adolescent Medicine; Visit Provider Internal Medicine Medical Oncology
DX: D50.8 Other iron deficiency anemias (principal); R79.1 Abnormal coagulation profile
CPT/HCPCS: 85610; 96365; 99211; G0463; J1439; J1642

== ENCOUNTER 2023-09-28 08:33 | Outpatient (CLI) | payer MEDICARE, MEDICAID, SELFPAY ==
[2023-09-28 08:40] VITALS: BMI 34.0
[2023-09-28 09:04] LABS: Basophils % 0.4 % (0.1-2.0); Eosinophils # 0.2 K/mm3 (0.0-0.4); Eosinophils % 3.2 % (0.1-12.0); Hematocrit 29.3 % (37.0-47.0); Hemoglobin 9.4 g/dL (12.2-16.2); Lymphocytes # 0.4 K/mm3 (0.7-4.5); Lymphocytes % 6.2 % (10-50); Mean Corpuscular Hemoglobin 29.5 pg (27.0-31.2); Mean Platelet Volume 9.6 fl (7.4-10.4); Monocytes # 0.3 K/mm3 (0.1-1.0); Monocytes % 4.8 % (1.7-9.3); Neutrophils # 5.7 K/mm3 (1.8-7.8); Neutrophils % 85.4 % (37.0-80.0); Platelet Count 186 K/mm3 (142-424); Red Blood Count 3.19 M/mm3 (4.20-5.40); Red Cell Distribution Width 20.1 % (11.5-17.5); White Blood Count 6.7 K/mm3 (4.8-10.8)
[2023-09-28 09:08] LABS: MANUAL DIFFERENTIAL MANUAL DIFFERENTIAL (MANUAL DIFF)
[2023-09-28 09:28] LABS: Eosinophils % 2 % (0-3); Hypochromasia 1+; Lymphocytes % 5 % (10-50); Monocytes % 9 % (2-9); Neutrophils % 84 % (42-76); Ovalocytes 1+; Platelet Estimate Normal; Total Cells Counted 100
== END 2023-09-28 09:06 | disposition home or self-care (01) ==
LOC: INF 08:35
PROVIDERS: PCP Internal Medicine Adolescent Medicine; Visit Provider Internal Medicine Medical Oncology
DX: D64.9 Anemia, unspecified (principal); Z45.2 Encounter for adjustment and management of vascular access device
CPT/HCPCS: 36591; 85007; 85025; J1642

== ENCOUNTER 2023-10-12 08:56 | Outpatient (CLI) | payer MEDICARE, MEDICAID, SELFPAY ==
[2023-10-12 09:01] VITALS: BMI 34.0
[2023-10-12 09:27] LABS: Basophils % 0.4 % (0.1-2.0); Eosinophils # 0.4 K/mm3 (0.0-0.4); Eosinophils % 5.3 % (0.1-12.0); Hematocrit 33.3 % (37.0-47.0); Hemoglobin 10.6 g/dL (12.2-16.2); Lymphocytes # 0.5 K/mm3 (0.7-4.5); Lymphocytes % 6.3 % (10-50); Mean Corpuscular HGB Conc 31.9 g/dL (31.8-35.4); Mean Corpuscular Hemoglobin 28.6 pg (27.0-31.2); Mean Corpuscular Volume 89.7 fl (81-99); Mean Platelet Volume 8.5 fl (7.4-10.4); Monocytes # 0.4 K/mm3 (0.1-1.0); Monocytes % 5.1 % (1.7-9.3); Neutrophils # 6.2 K/mm3 (1.8-7.8); Neutrophils % 82.8 % (37.0-80.0); Platelet Count 239 K/mm3 (142-424); Red Blood Count 3.72 M/mm3 (4.20-5.40); Red Cell Distribution Width 18.3 % (11.5-17.5); White Blood Count 7.4 K/mm3 (4.8-10.8)
== END 2023-10-12 09:55 | disposition home or self-care (01) ==
LOC: INF 08:57
PROVIDERS: PCP Internal Medicine Adolescent Medicine; Visit Provider Internal Medicine Medical Oncology
DX: D64.9 Anemia, unspecified (principal); Z45.2 Encounter for adjustment and management of vascular access device
CPT/HCPCS: 36591; 85025; J1642

== ENCOUNTER 2023-10-26 09:48 | Outpatient (CLI) | payer MEDICARE, MEDICAID, SELFPAY ==
[2023-10-26 09:54] VITALS: BMI 34.0
[2023-10-26 10:41] LABS: Basophils % 0.3 % (0.1-2.0); Eosinophils # 0.3 K/mm3 (0.0-0.4); Eosinophils % 3.4 % (0.1-12.0); Hematocrit 29.3 % (37.0-47.0); Hemoglobin 9.6 g/dL (12.2-16.2); Lymphocytes # 0.4 K/mm3 (0.7-4.5); Lymphocytes % 5.2 % (10-50); Mean Corpuscular HGB Conc 32.8 g/dL (31.8-35.4); Mean Corpuscular Hemoglobin 28.6 pg (27.0-31.2); Mean Corpuscular Volume 87.4 fl (81-99); Mean Platelet Volume 7.3 fl (7.4-10.4); Monocytes # 0.3 K/mm3 (0.1-1.0); Monocytes % 4.1 % (1.7-9.3); Neutrophils # 6.9 K/mm3 (1.8-7.8); Neutrophils % 87.1 % (37.0-80.0); Platelet Count 214 K/mm3 (142-424); Red Blood Count 3.35 M/mm3 (4.20-5.40); Red Cell Distribution Width 17.1 % (11.5-17.5); White Blood Count 7.9 K/mm3 (4.8-10.8)
[2023-10-26 10:51] LABS: Iron 38 ug/dL (37-170)
[2023-10-26 10:52] LABS: MANUAL DIFFERENTIAL MANUAL DIFFERENTIAL (MANUAL DIFF)
[2023-10-26 11:02] LABS: Total Iron Binding Capacity 441 ug/dL (265-497)
[2023-10-26 11:23] LABS: Eosinophils % 3 % (0-3); Lymphocytes % 7 % (10-50); Monocytes % 2 % (2-9); Neutrophils % 88 % (42-76); Total Cells Counted 100
[2023-10-26 11:24] LABS: Platelet Estimate Normal; RBC Morphology Normal
--- NOTE | 2023-10-26 11:25 | PC.NURSE ---
contacted Romy Serrano RN and informed her of pt's lab results for iron studies. pt has routinely been recieving iv iron once monthly. Since MD has changed asked nurse to consult with MD to determine poc.
[2023-10-26 13:21] LABS: Ferritin 24.8 ng/ml (11.1-264)
[2023-10-26 15:22] LABS: PHA INR Fingerstick 2.3 (0.9-1.1)
== END 2023-10-26 10:55 | disposition home or self-care (01) ==
LOC: INF 09:50
PROVIDERS: PCP Internal Medicine Adolescent Medicine; Visit Provider Internal Medicine Medical Oncology
DX: D64.9 Anemia, unspecified (principal); Z79.01 Long term (current) use of anticoagulants; Z51.81 Encounter for therapeutic drug level monitoring
CPT/HCPCS: 36591; 82728; 83540; 83550; 85007; 85025; 85610; 99211; G0463; J1642

== ENCOUNTER 2023-10-27 11:38 | Outpatient (CLI) | payer MEDICARE, MEDICAID, SELFPAY ==
[2023-10-27 11:59] VITALS: BP 121/68; PULSE 68; RESP 18; TEMP 36.8; O2SAT 98
[2023-10-27 12:30] VITALS: BP 120/64; PULSE 71
== END 2023-10-27 12:36 | disposition home or self-care (01) ==
LOC: INF 11:39
PROVIDERS: PCP Internal Medicine Adolescent Medicine; Visit Provider Internal Medicine Medical Oncology
DX: D50.9 Iron deficiency anemia, unspecified (principal); Z45.2 Encounter for adjustment and management of vascular access device
CPT/HCPCS: 96365; J1439; J1642

== ENCOUNTER 2023-10-30 10:06 | Observation (INO) | payer MEDICARE, MEDICAID, SELFPAY ==
[2023-10-30] VITALS (15 sets, daily range): BP systolic 104–124; BP diastolic 48–74; PULSE 57–98; RESP 16–22; TEMP 36.7–37; O2SAT 86–98; BMI 32.8; BMI 34.2
--- NOTE | 2023-10-30 10:13 | HMH.EDGENADL ---
Discharge Plan Disposition Chief Complaint: Shortness of Breath/Dyspnea Discharge ED Provider: Silvio Teixeira General Adult HPI General Chief complaint: Shortness of Breath/Dyspnea Stated complaint: soa, muscle aches chills cough st Time Seen by Provider: 10/30/23 10:12 History of Present Illness HPI narrative: The patient presents with low O2 saturation, feeling cold, sore throat, earache, headache, and issues with face and hands. She reports receiving a unit of iron on Wednesday and initially attributed her symptoms to the water. She experienced chills and a sore throat starting the night before last. The patient uses a CPAP machine for sleep. Her condition progressed yesterday, with low O2 saturation at home despite using supplemental oxygen. Her oxygen saturation levels only reached the mid-to-high 80s, which prompted her to seek medical attention. Related Data Home Medications Medication Instructions Recorded Confirmed aspirin 81 mg tablet,delayed 81 mg PO DAILY circulation 12/01/17 09/21/23 release (Adult Low Dose Aspirin) oxycodone-acetaminophen 10 mg-325 1 tab PO TIDP PRN Moderate Pain 05/23/18 09/21/23 mg tablet (Percocet) alprazolam 0.5 mg tablet (Xanax) 0.5 mg PO TIDP PRN Anxiety 11/29/19 09/21/23 citalopram 40 mg tablet 40 mg PO DAILY Depression 03/31/21 09/21/23 levothyroxine 25 mcg tablet 25 mcg PO DAILYDM hypothyroidism 06/05/21 09/21/23 calcitriol 0.25 mcg capsule 0.25 mcg PO DAILY hypocalcemia 10/02/21 09/21/23 insulin glargine 100 60 units SQ DAILY Diabetes 02/22/22 09/21/23 unit-lixisenatide 33 mcg/mL subcutaneous pen bumetanide 1 mg tablet 1 mg PO BIDL Fluid 03/07/22 09/21/23 levalbuterol HCl 1.25 mg/3 mL 1.25 mg inhalation TID PRN COPD 03/16/22 09/21/23 solution for nebulization febuxostat 40 mg tablet 40 mg PO DAILY gout 02/09/23 09/21/23 omeprazole 40 mg capsule,delayed 40 mg PO BID GERD 02/23/23 09/21/23 release potassium chloride 20 mEq 20 meq PO DAILY Supplement 04/15/23 09/21/23 tablet,extended release(part/cryst) spironolactone 25 mg tablet 25 mg PO BID blood pressure 08/26/23 09/21/23 warfarin 4 mg tablet 2 mg PO MOWEFR mechanical 08/26/23 10/30/23 valve/blood thinner warfarin 4 mg tablet 4 mg PO SUTUTHFR mechanical 08/26/23 10/30/23 valve/blood thinner Previous Rx's Medication Instructions Recorded metoprolol succinate 200 mg 200 mg PO DAILY blood pressure #30 06/28/23 tablet,extended release 24 hr tabs Allergies Allergy/AdvReac Type Severity Reaction Status Date / Time codeine [CODEINE] Allergy Unknown nausea, Verified 08/26/23 10:21 swelling Corticosteroids Allergy Unknown Verified 08/26/23 10:21 (Glucocorticoids) [CORTICOSTEROIDS (GLUCOCORTICOIDS)] rosuvastatin [From CRESTOR] Allergy Unknown Verified 08/26/23 10:21 theophylline [From DAVID-DUR] Allergy Unknown Verified 08/26/23 10:21 Iodinated Contrast Media AdvReac Severe shuts Verified 08/26/23 10:21 [IODINATED CONTRAST- ORAL kidneys AND IV DYE] down and bleeding buprenorphine [From BUPRENEX] AdvReac Intermediate Nausea Verified 08/26/23 10:21 prednisone AdvReac Verified 08/26/23 10:21 entresto AdvReac Intermediate hypotension Uncoded 08/26/23 10:21 PFSH PFS Disclaimer: The information contained in this section may have been updated after the patient was seen, as this information can be updated by other users. Medical History Afib Afib Anemia acute on chronic Anemia Arrhythmia Arrhythmia Arthritis Arthritis Autoimmune hemolytic anemia Blood transfusion reaction Blood transfusion reaction CAD (coronary artery disease) Cancer Cardiomyopathy Cardiomyopathy CHF (congestive heart failure) CHF (congestive heart failure) CKD (chronic kidney disease) Congestive heart failure, NYHA class III COPD (chronic obstructive pulmonary disease) COPD (chronic obstructive pulmonary disease) Coronary artery disease Diabe
--- NOTE | 2023-10-30 10:15 | ECG_ITS ---
APPROVED REPORT Exam: Resting ECG HR:85 bpm ECG Measurements Heart Rate 85 AXES QRSd 124 QRS 80 QT 397 T 83 QTc 439 Conclusion ATRIAL FIBRILLATION POSSIBLE RIGHT VENTRICULAR CONDUCTION DELAY [RSR (QR) IN V1/V2] POSSIBLE ANTERIOR MYOCARDIAL INFARCTION , PROBABLY OLD [30 ms Q WAVE IN V3/V4, OR R < 0.2 mV IN V4] POSSIBLE INFERIOR MYOCARDIAL INFARCTION , PROBABLY OLD [30 ms Q WAVE IN II/aVF] ABNORMAL RHYTHM ECG UNCONFIRMED REPORT Electronically signed by : Reji Castro MD 10/31/2023 14:18:18
[2023-10-30 10:17] LABS: Coronavirus 19, PCR Not Detected (NotDetected); Influenza A, PCR Not Detected (NotDetected); Influenza B, PCR Not Detected (NotDetected)
--- NOTE | 2023-10-30 10:28 | XR_ITS ---
PROCEDURE INFORMATION: Exam: XR Chest Exam date and time: 10/30/2023 10:33 AM Age: 58 years old Clinical indication: Shortness of breath; Additional info: SOA, HX chf and copd TECHNIQUE: Imaging protocol: Radiologic exam of the chest. Views: 2 views. COMPARISON: CR XR CHEST 2V 08/12/2023 8:25 PM FINDINGS: Tubes, catheters and devices: Tunneled right IJ central venous catheter is in stable position. Lungs: Mild peribronchial thickening. No airspace consolidation or nodules. Pleural spaces: No pleural effusion. No pneumothorax. Heart/Mediastinum: Cardiomegaly may be worse than on 08/12/2023 and vascular congestion is present. Bones/joints: Sternotomy wires and mitral valve prosthesis. IMPRESSION: Cardiomegaly and congestive heart failure have worsened since 08/12/2023.
[2023-10-30 11:08] LABS: VBG HCO3 31.6 mmol/L (23-30); VBG Oxygen Saturation 87.6 % (50-70); VBG PH 7.42 mmol/L (7.31-7.41); VBG PO2 55.2 mmol/L (28-40); VBG Total CO2 33.1 mmol/L (23-27)
[2023-10-30 11:09] LABS: Basophils % 0.1 % (0.1-2.0); Eosinophils # 0.1 K/mm3 (0.0-0.4); Eosinophils % 0.6 % (0.1-12.0); Hematocrit 28.2 % (37.0-47.0); Hemoglobin 8.9 g/dL (12.2-16.2); Lymphocytes # 0.4 K/mm3 (0.7-4.5); Lymphocytes % 2.8 % (10-50); Mean Corpuscular HGB Conc 31.4 g/dL (31.8-35.4); Mean Corpuscular Hemoglobin 27.6 pg (27.0-31.2); Mean Corpuscular Volume 87.9 fl (81-99); Mean Platelet Volume 8.5 fl (7.4-10.4); Monocytes # 0.6 K/mm3 (0.1-1.0); Monocytes % 4.3 % (1.7-9.3); Neutrophils # 12.4 K/mm3 (1.8-7.8); Neutrophils % 92.2 % (37.0-80.0); Platelet Count 230 K/mm3 (142-424); Red Blood Count 3.21 M/mm3 (4.20-5.40); Red Cell Distribution Width 18.6 % (11.5-17.5); White Blood Count 13.5 K/mm3 (4.8-10.8)
[2023-10-30 11:11] LABS: Sodium 136 mmol/L (136-145)
[2023-10-30 11:12] LABS: Potassium 3.6 mmoL/L (3.5-5.1)
[2023-10-30 11:13] LABS: Chloride 97 mmol/L (98-107)
[2023-10-30 11:14] LABS: Alanine Aminotransferase 17 U/L (12-78); Albumin Level 4.3 g/dl (3.5-5.0); Albumin/Globulin Ratio 1.5 (1.1-1.8); Alkaline Phosphatase 82 U/L (38-126); Anion Gap 8.6 mEq/L (5-15); Aspartate Amino Transferase 23 U/L (14-36); Bilirubin,Total 0.9 mg/dl (0.2-1.3); Blood Urea Nitrogen 28 mg/dl (7-17); Carbon Dioxide 34 mmol/L (22.0-30.0); Creatinine Clearance Estimated 63 mL/min (50-200); Estimated Glomerular Filt Rate 42 ml/min (>60); GFR (African American) 51 ML/MIN (>60); Globulin 2.8 g/dL (1.3-3.2); Phosphorous 2.2 mg/dl (2.5-4.5); Total Protein,Serum 7.1 g/dl (6.3-8.2)
[2023-10-30 11:15] LABS: Calcium 8.8 mg/dl (8.4-10.2); Glucose 218 mg/dl (74-100); Magnesium 1.7 mg/dl (1.6-2.3)
[2023-10-30 11:24] LABS: NT Pro Brain Natriuretic Pep. 1890 pg/mL (0-125)
[2023-10-30 11:28] LABS: Troponin I < 0.01 ng/ml (0.00-0.034)
[2023-10-30 11:31] LABS: MANUAL DIFFERENTIAL MANUAL DIFFERENTIAL (MANUAL DIFF)
[2023-10-30 11:59] LABS: Lymphocytes % 3 % (10-50); Monocytes % 5 % (2-9); Neutrophils % 92 % (42-76); Total Cells Counted 100
[2023-10-30 12:03] LABS: Platelet Estimate Normal; RBC Morphology Normal
--- NOTE | 2023-10-30 13:19 | PC.NURSE ---
pt finished neb tx and up to the restroom
[2023-10-30 14:07] LABS: Troponin I < 0.01 ng/ml (0.00-0.034)
--- NOTE | 2023-10-30 14:22 | PC.NURSE ---
on phone with hospitalist
--- NOTE | 2023-10-30 14:59 | PC.NURSE ---
pt up to restroom
--- NOTE | 2023-10-30 16:43 | PC.NURSE ---
Patient new admit from ER. Patient A&Ox4, patient on 2L NC which is not a home dose of oxygen. Patient VSS.
--- NOTE | 2023-10-30 18:11 | EXP.HP ---
History of Present Illness *Admission Date: 10/30/23 *Reason for visit:: SOB *History of present illness: Patient is a 58-year-old female with past medical history of diabetes mellitus COPD CAD atrial fibrillation who presented to hospital due to shortness of breath. Patient mentions she has been having sore throat, chills. She has been feeling worse, on further evaluation in the emergency department she was noted to have leukocytosis as well as mild peribronchial thickening on x-ray. [facility] Disclaimer: The information contained in this section may have been updated after the patient was seen, as this information can be updated by other users. Medical History Afib Afib Anemia acute on chronic Anemia Arrhythmia Arrhythmia Arthritis Arthritis Autoimmune hemolytic anemia Blood transfusion reaction Blood transfusion reaction CAD (coronary artery disease) Cancer Cardiomyopathy Cardiomyopathy CHF (congestive heart failure) CHF (congestive heart failure) CKD (chronic kidney disease) Congestive heart failure, NYHA class III COPD (chronic obstructive pulmonary disease) COPD (chronic obstructive pulmonary disease) Coronary artery disease Diabetes mellitus DM type 2 (diabetes mellitus, type 2) DVT (deep venous thrombosis) DVT (deep venous thrombosis) Dyspnea GERD (gastroesophageal reflux disease) GERD (gastroesophageal reflux disease) Hernia HLD (hyperlipidemia) HLD (hyperlipidemia) HLD (hyperlipidemia) HTN (hypertension) Hyperlipidemia Hypertension Hypothyroidism Hypothyroidism Liver disease Liver disease NYHA class 3 acute on chronic systolic heart failure Polyarthralgia Pulmonary edema Rheumatic heart disease Rib fracture Sinus problem Sinus problem Systolic CHF Thyroid disease Typical angina Valvular heart disease Surgical History H/O tubal ligation History of angioplasty History of cardiac cath History of cardiac catheterization History of colon resection History of colon resection History of hernia repair History of renal stent History of renal stent History of tubal ligation History of ureteroscopy Mitral valve replaced Family History Other COPD (chronic obstructive pulmonary disease) Hypertension Social History (Updated 10/30/23 @ 16:56 by Cherri Montano RN) Smoking Status: Never smoker smoking status stop date: 01/09/2006 quit status: quit date established second hand exposure: Yes alcohol intake: never substance use type: denies use current occupational status: disabled Travel in the last 8 weeks: None adopted: No caregiver/support person: No foster care: No household members: significant other housing: house lives independently: Yes marital status: life partner education level: college service: No usp: No current occupational exposures/hazards: No sexually active: Yes how many partners: 1 are you practicing safe sex: Yes diet: diabetic well-balanced diet: about half the time caffeine: Yes eating out: rarely or never during the past year weight has: remained stable bhavya/restorationism: Religion special bhavya needs: No agree to transfusion: Yes helmet use: No water heater temp set < 120 deg: Yes working smoke detector in home: Yes fire extinguisher in home: Yes carbon monox detector in home: Yes firearms in home: No do you feel safe at home: Yes victim of physical abuse: No victim of emotional abuse: No victim of sexual abuse: No would you like helpful sources: No Review of Systems Review of Systems Review of systems (narrative): as per HPI Meds Home Medications and Allergies Home Medications Medication Instructions Recorded Confirmed Type aspirin 81 mg tablet,delayed 81 mg PO DAILY circulation 12/01/17 10/30/23 H
--- NOTE | 2023-10-30 18:50 | PC.NURSE ---
Warfarin consult called to overnight pharmacy. Spoke with Aly. Waiting for PT/INR to result.
[2023-10-30 21:28] LABS: INR 2.25 (0.9-1.1)
--- NOTE | 2023-10-30 22:18 | PC.NURSE ---
NIGHTWATCH PHARMACIST VICKI REVIEWED PT/INR AND SAYS TO CONTINUE SAME DOSE (AND PATIENT HAS ALREADY HAD HER DOSE TODAY).
[2023-10-30 23:43] LABS: POC Glucose,Bedside 402 (70-110)
[2023-10-31] VITALS (10 sets, daily range): BP systolic 106–141; BP diastolic 65–87; PULSE 53–106; RESP 18–24; TEMP 36.4–36.7; O2SAT 91–98; BMI 34.2
--- NOTE | 2023-10-31 04:43 | PC.NURSE ---
PATIENT RESTED WELL AFTER PO PERCOCET 10MG AND XANAX 0.5MG PO FOR NERVES AND CHRONIC PAIN IN BACK AT 2223. 02 AT 2LNC. 02 SAT 91% ON 2LNC. REPORTS COUGH NOW PRODUCTIVE, SMALL AMTS LIGHT YELLOW. C/O SOA ON EXERTION. AMBULATES TO BR WITH SBA. PATIENT A/O X 4.
[2023-10-31 06:17] LABS: INR 1.99 (0.9-1.1); Prothrombin Time 20.5 seconds (10.1-12.5)
[2023-10-31 12:25] LABS: POC Glucose,Bedside 428 (70-110)
--- NOTE | 2023-10-31 16:20 | EXP.PN ---
Subjective *Date: 10/31/23 *Time: 16:20 Interval history: patient was seen and evaluated at the bedside. denies chest pain, shortness of breath, nausea, vomiting, abdominal pain. Patient does not have any complaints at this time. feels better overall Exam Data for Last 24 hours Vital signs and Labs for Last 24 Hours: Temp Pulse Resp BP Pulse Ox O2 Del Method O2 Flow Rate 97.5 F L 106 H 18 141/87 H 98 Room Air 2 10/31/23 15:07 10/31/23 15:07 10/31/23 15:07 10/31/23 15:07 10/31/23 15:07 10/31/23 15:07 10/31/23 10:05 Laboratory Results - last 24 hr 10/30/23 20:22: POC Glucose 402 H* 10/30/23 21:15: PT 23.0 H, INR 2.25 H 10/31/23 06:00: PT 20.5 H, INR 1.99 H 10/31/23 12:01: POC Glucose 428 H* I & O for Last 24 hours: Intake & Output 10/28/23 10/29/23 10/30/23 10/31/23 23:59 23:59 23:59 23:59 Intake Total 360 / 940 1060 / 1060 Output Total 200 / 200 1500 / 1500 Balance 160 / 740 -440 / -440 Weight 90.35 kg 90.855 kg Constitutional Constitutional: no acute distress *Routine HEENT Exam Head: Present normocephalic Eye: Present EOMI and PERRL ENT: Present mucous membranes moist *Routine Neck Exam Neck: Present supple; Absent lymphadenopathy *Routine Respiratory Exam Respiratory: Present CTA bilaterally *Routine Cardiovascular Exam Cardiovascular: Present RRR *Routine Abdominal Exam Abdominal: Present soft and normoactive bowel sounds; Absent tenderness *Routine Extremities Exam Extremities: Absent cyanosis, clubbing or edema *Routine Skin Exam Skin: Present warm; Absent rash *Routine Neurological Exam Neurological: Present alert and oriented X3 Assessment and Plan *Assessment and plan (1) COPD exacerbation: Status: Acute Category: Medical Code(s): J44.1 - Chronic obstructive pulmonary disease with (acute) exacerbation (2) CHF exacerbation: Status: Acute Category: Medical Code(s): I50.9 - Heart failure, unspecified (3) Anemia: Status: Acute Category: Medical Code(s): D64.9 - Anemia, unspecified (4) Hypotension: Status: Acute Category: Medical Code(s): I95.9 - Hypotension, unspecified (5) CKD (chronic kidney disease): Status: Acute Category: Medical Code(s): N18.9 - Chronic kidney disease, unspecified (6) Hyperlipidemia: Status: Chronic Qualifiers: Hyperlipidemia type: mixed hyperlipidemia Qualified Code(s): E78.2 - Mixed hyperlipidemia Category: Medical Code(s): E78.5 - Hyperlipidemia, unspecified (7) Hypertensive heart disease: Status: Chronic Qualifiers: Heart failure presence: with heart failure Heart failure type: diastolic Heart failure chronicity: acute on chronic Qualified Code(s): I11.0 - Hypertensive heart disease with heart failure; I50.33 - Acute on chronic diastolic (congestive) heart failure Category: Medical Code(s): I11.9 - Hypertensive heart disease without heart failure Plan Patient is a 58-year-old female with past medical history of diabetes mellitus COPD CAD atrial fibrillation who presented to hospital due to shortness of breath. Patient mentions she has been having sore throat, chills. She has been feeling worse, on further evaluation in the emergency department she was noted to have leukocytosis as well as mild peribronchial thickening on x-ray. Assessment COPD exacerbation Acute hypoxic respiratory failure satting less than 90% on room air Acute CHF Diabetes mellitus CAD Atrial fibrillation on Coumadin Plan Start breathing treatments, Continue Levaquin Patient is allergic to steroids Continue oxygen supplementation Reswab and repeat CXR Insulin sliding scale Low-salt diet IV Lasix 40 twice daily Closely monitor and replace electrolytes Resume home medications including Coumadin, consult pharmacy DVT prophylaxis-on Coumadin, INR is within therapeutic range F/u on CXR and
--- NOTE | 2023-10-31 16:22 | EXP.PN ---
Subjective *Date: 10/31/23 *Time: 16:22 Interval history: patient was seen and evaluated at the bedside. denies chest pain, shortness of breath, nausea, vomiting, abdominal pain. Patient does not have any complaints at this time. feels better overall Exam Data for Last 24 hours Vital signs and Labs for Last 24 Hours: Temp Pulse Resp BP Pulse Ox O2 Del Method O2 Flow Rate 97.5 F L 106 H 18 141/87 H 98 Room Air 2 10/31/23 15:07 10/31/23 15:07 10/31/23 15:07 10/31/23 15:07 10/31/23 15:07 10/31/23 15:07 10/31/23 10:05 Laboratory Results - last 24 hr 10/30/23 20:22: POC Glucose 402 H* 10/30/23 21:15: PT 23.0 H, INR 2.25 H 10/31/23 06:00: PT 20.5 H, INR 1.99 H 10/31/23 12:01: POC Glucose 428 H* I & O for Last 24 hours: Intake & Output 10/28/23 10/29/23 10/30/23 10/31/23 23:59 23:59 23:59 23:59 Intake Total 360 / 940 1060 / 1060 Output Total 200 / 200 1500 / 1500 Balance 160 / 740 -440 / -440 Weight 90.35 kg 90.855 kg Constitutional Constitutional: no acute distress *Routine HEENT Exam Head: Present normocephalic Eye: Present EOMI and PERRL ENT: Present mucous membranes moist *Routine Neck Exam Neck: Present supple; Absent lymphadenopathy *Routine Respiratory Exam Respiratory: Present CTA bilaterally *Routine Cardiovascular Exam Cardiovascular: Present RRR *Routine Abdominal Exam Abdominal: Present soft and normoactive bowel sounds; Absent tenderness *Routine Extremities Exam Extremities: Absent cyanosis, clubbing or edema *Routine Skin Exam Skin: Present warm; Absent rash *Routine Neurological Exam Neurological: Present alert and oriented X3
[2023-10-31 17:18] LABS: POC Glucose,Bedside 176 (70-110)
--- NOTE | 2023-10-31 18:55 | PC.NURSE ---
Patient on Room air and VSS. Patient A&ox4.
[2023-11-01] VITALS (11 sets, daily range): BP systolic 93–123; BP diastolic 68–81; PULSE 74–103; RESP 20–22; TEMP 36.4–36.7; O2SAT 88–99; BMI 34.7
--- NOTE | 2023-11-01 03:45 | PC.NURSE ---
PATIENT RESTING QUIETLY. NO RESP DISTRESS. 02 SAT 88% ON ROOM AIR. PLACED BACK ON AT 2LNC.
--- NOTE | 2023-11-01 04:50 | PC.NURSE ---
02 SATS FOUND TO BE 88% ON ROOM AIR. PLACED BACK ON 02 AT 2LNC AND SATS IMPROVED TO 93%. LUNGS C/D BILAT. OCCASSIONAL COUGH, SMALL AMTS THICK GREEN SPUTUM. NO C/O PAIN. VITAL SIGNS STABLE. CONTINUES TO RECEIVE S/S FOR ELEVATED BLD SUGAR. AMBULATORY TO , TOLERATES WELL.
[2023-11-01 06:18] LABS: Basophils % 0.2 % (0.1-2.0); Eosinophils # 0.1 K/mm3 (0.0-0.4); Eosinophils % 1.4 % (0.1-12.0); Hematocrit 30.5 % (37.0-47.0); Hemoglobin 9.6 g/dL (12.2-16.2); Lymphocytes # 0.6 K/mm3 (0.7-4.5); Lymphocytes % 5.9 % (10-50); Mean Corpuscular HGB Conc 31.3 g/dL (31.8-35.4); Mean Corpuscular Hemoglobin 27.7 pg (27.0-31.2); Mean Corpuscular Volume 88.6 fl (81-99); Mean Platelet Volume 8.7 fl (7.4-10.4); Monocytes # 0.6 K/mm3 (0.1-1.0); Neutrophils # 8.5 K/mm3 (1.8-7.8); Neutrophils % 86.5 % (37.0-80.0); Platelet Count 237 K/mm3 (142-424); Red Blood Count 3.44 M/mm3 (4.20-5.40); White Blood Count 9.9 K/mm3 (4.8-10.8)
[2023-11-01 06:19] LABS: MANUAL DIFFERENTIAL MANUAL DIFFERENTIAL (MANUAL DIFF)
[2023-11-01 06:21] LABS: Chloride 92 mmol/L (98-107); Sodium 135 mmol/L (136-145)
[2023-11-01 06:24] LABS: INR 2.44 (0.9-1.1); Prothrombin Time 24.9 seconds (10.1-12.5)
[2023-11-01 06:25] LABS: Blood Urea Nitrogen 52 mg/dl (7-17); Calcium 8.3 mg/dl (8.4-10.2); Carbon Dioxide 36 mmol/L (22.0-30.0); Creatinine Clearance Estimated 51 mL/min (50-200); Estimated Glomerular Filt Rate 31 ml/min (>60); GFR (African American) 37 ML/MIN (>60); Glucose 252 mg/dl (74-100)
[2023-11-01 06:31] LABS: Eosinophils % 2 % (0-3); Lymphocytes % 5 % (10-50); Monocytes % 7 % (2-9); Neutrophils % 86 % (42-76); Total Cells Counted 100
[2023-11-01 06:32] LABS: Hypochromasia 1+; Platelet Estimate Normal
[2023-11-01 06:33] LABS: Anisocytosis 1+; Ovalocytes 1+
--- NOTE | 2023-11-01 12:04 | CA_ITS ---
APPROVED REPORT EXAM: Comprehensive 2D, Doppler, and color-flow Echocardiogram Document Scanner: Malini Del Cid RVT Ht: 5 ft 4 in Wt: 203lbs BSA: 1.97 BP: 141/87 mmHg Indications: CHF,COPD,CM,CAD,MECH MVR,A-FIB,HTN,CP,HLD TDS-PT BODY HABITUS 2D Dimensions Left Atrium 7.58 cm F: 2.7 - 3.8 LA Volume 140.10 mL RVID Base (AP4) 3.93 cm (M/F) 2.5-4.1 LA Volume Index 71.12 mL/m2 (M/F) 16-34 LVOT 2.40 cm (M/F) 1.5-2.5 EF AP4 32.10 % GL Strain -8.5 % M-Mode Dimensions RVDd 3.70 cm (0.9-2.6) LVDd 5.38 cm (3.5-5.7) Ao Diam 2.54 cm (2.0-3.7) LVDs 4.63 cm (3.5-5.7) IVSd 1.22 cm (0.6-1.1) PWd 0.75 cm (0.6-1.1) EF (Teich) 29.50% FS 13.90% EDV (Teich) 140.10 mL TAPSE 2.42 (<1.7) ESV (Teich) 98.80 mL LV Diastology MED E' 9.0 (>= 7 cm/sec) LAT E' 12.8 (>= 10 cm/sec) Aortic Valve LVOT Max 110.0 (70-110 cm/s) CLAIR Index 1.28 cm2/m2 LVOT VTI 19.74 cm AoV Peak Jak. 198.0 (50-130 cm/s) AO Peak GR. 10.90 mmHg AO Mean GR. 7.30 (<5 mmHg) AO VTI 35.5 (18-25 cm) CLAIR (VTI) 2.52 (2.5-4.5 cm2) Mitral Valve MV Mean Gr. 4.20 (<2mmHg) MV PHT 89.0 ms Tricuspid Valve TR P. Velocity 278.00 cm/s RAP Estimate 10.00 mmHg RVSP 41.00 mmHg Left Ventricle The left ventricle is normal size. The left ventricular systolic function is severely reduced There is normal left ventricular wall thickness. There is severe global hypokinesis present. The septum appears asynchronous. Diastolic function is indeterminate due to atrial fibrillation. LVEF is 25-30%. Right Ventricle The right ventricle is mildly dilated. Right ventricle is mildly hypokinetic. Atria The left atrium is severely dilated. The right atrium is severely dilated. There is no Doppler evidence of interatrial shunt. Aortic Valve The aortic valve is mildly thickened. There is no aortic valvular stenosis. Mild aortic regurgitation. Mitral Valve s/p mechanical MVR. No evidence of mitral valve stenosis. Mean MV gradient 4 mmHg (HR 95 bpm). Trace central mitral regurgitation. Tricuspid Valve The tricuspid valve leaflets are thin and pliable. Moderate to severe tricuspid regurgitation. RVSP is 40-45 mmHg. There is hepatic systolic flow reversal present, consistent with significant tricuspid regurgitation. Pulmonic Valve The pulmonary valve is normal in structure. Trace pulmonic regurgitation. Great Vessels The aortic root is normal in size. The ascending aorta is normal in size. The IVC is plethoric. Pericardium There is no pericardial effusion. Other Information Study Quality: Technically Difficult Conclusion Technically difficult study due to poor acoustic windows. Severely reduced LV systolic function (LVEF 25-30%). Asynchronous septum. Mild RV dilation with mild RV dysfunction. Severe biatrial dilatation. Mild AI. s/p mechanical MVR. Moderate to severe TR. Elevated RVSP 40-45 mmHg. Compared to prior study from 01/2023, the LVEF now appears further reduced. The MVR gradients are overall unchanged. Electronically signed by : Sade Caldwell MD 11/01/2023 22:14:00
--- NOTE | 2023-11-01 15:38 | EXP.CARD.CON ---
History of Present Illness History of Present Illness Consult date: 11/01/23 Requesting physician: Beata Connor Consult reason: congestive heart failure and known to you Chief complaint: SOA, cough, NSTEMI Additional Medical History:: 1. HFrEF with EF about 40% dating back to 2019 A. CardioMEMS placement, 06/03/2018 but no readings since 2020. B. Lexiscan Myoview, 04/2022, no ischemia. Myocardial scarring of the anterolateral wall. EF 29% but patient noted to be in A-fib. C. Echocardiogram, 02/05/2023, EF 40% with abnormal septal motion. Moderately enlarged RV with normal contractility. Normally functioning mechanical mitral valve without obstruction or significant regurgitation. Moderate to severe TR with RVSP of 44 mmHg. 2. Chronic atrial fibrillation A. chronic Coumadin treatment 3. History of [facility] mechanical mitral valve placement, 2005, [place], [place], Dr. Paul Castillo A. Chronic Coumadin therapy B. CHUCHO, 07/17/2021, normal LV size, EF 50% with no regional WMA. No obvious valvular vegetation identified. Mechanical mitral valve well-seated and functioning appropriately with mild MR. 4. Diabetes mellitus, type II diagnosed in 2005 5. History of normal coronary arteries in 2016 6. Hyperlipidemia A. Intolerant to statin therapy 7. 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 Failed Cytoxan and danazol after intolerance to prednisone. Status post splenic embolectomy A. Remote history of bone marrow biopsy showing bone marrow functioning normally. Anemia related to spleen activity. B. Indwelling PowerPort left chest (changed in August 2021 at [facility] due to infection) C. Multiple transfusions along with history of Venofer injections D. EGD and colonoscopy, 06/25/2022, normal, Dr. Montague 8. CKD, chronic, stage III with creatinine 1.7 and GFR 31 A. Followed by nephrology 9. COPD 10. GERD 11. History of multiple urologic procedures for urethral stricture 12. Parotid tumor, seeing for treatment, ?surgery History of present illness: 58-year-old white female with extensive history as noted above presented to the emergency department for complaint of shortness of breath, sore throat and chills with feeling worse over the last several days. Noted to have a leukocytosis and mild evidence of CHF on chest x-ray. Subsequently admitted and started on antibiotics. Cardiology consulted for CHF. [facility] Disclaimer: The information contained in this section may have been updated after the patient was seen, as this information can be updated by other users. Medical History Afib Afib Anemia acute on chronic Anemia Arrhythmia Arrhythmia Arthritis Arthritis Autoimmune hemolytic anemia Blood transfusion reaction Blood transfusion reaction CAD (coronary artery disease) Cancer Cardiomyopathy Cardiomyopathy CHF (congestive heart failure) CHF (congestive heart failure) CKD (chronic kidney disease) Congestive heart failure, NYHA class III COPD (chronic obstructive pulmonary disease) COPD (chronic obstructive pulmonary disease) Coronary artery disease Diabetes mellitus DM type 2 (diabetes mellitus, type 2) DVT (deep venous thrombosis) DVT (deep venous thrombosis) Dyspnea GERD (gastroesophageal reflux disease) GERD (gastroesophageal reflux disease) Hernia HLD (hyperlipidemia) HLD (hyperlipidemia) HLD (hyperlipidemia) HTN (hypertension) Hyperlipidemia Hypertension Hypothyroidism Hypothyroidism Liver disease Liver disease NYHA class 3 acute on chronic systolic heart failure Polyarthralgia Pulmonary edema Rheumatic heart disease Rib fracture Sinus problem Sinus problem Systolic CHF Thyroid disease Typical angina Valvular heart disease Surgical History H/O tubal ligation History of angioplasty
--- NOTE | 2023-11-01 17:15 | EXP.PN ---
Subjective *Date: 11/01/23 *Time: 17:43 Interval history: patient was seen and evaluated at the bedside. complains of not feeling well today, denies chest pain, nausea, vomiting, abdominal pain. Exam Data for Last 24 hours Vital signs and Labs for Last 24 Hours: Temp Pulse Resp BP Pulse Ox O2 Del Method O2 Flow Rate 97.8 F 94 H 20 120/78 97 Nasal Cannula 2 11/01/23 15:47 11/01/23 15:47 11/01/23 15:47 11/01/23 15:47 11/01/23 15:47 11/01/23 15:47 11/01/23 15:47 Laboratory Results - last 24 hr 10/31/23 16:53: POC Glucose 176 H 11/01/23 06:06: WBC 9.9 D, RBC 3.44 L, Hgb 9.6 L, Hct 30.5 L, MCV 88.6, MCH 27.7, MCHC 31.3 L, RDW 19.0 H, Plt Count 237, MPV 8.7, Neut % (Auto) 86.5 H, Lymph % (Auto) 5.9 L, [place] % (Auto) 6.0, Eos % (Auto) 1.4, Baso % (Auto) 0.2, Neut # (Auto) 8.5 H, Lymph # (Auto) 0.6 L, [place] # (Auto) 0.6, Eos # (Auto) 0.1, Baso # (Auto) 0.0, Total Counted 100, Neutrophils % (Manual) 86 H, Lymphocytes % (Manual) 5 L, Monocytes % (Manual) 7, Eosinophils % (Manual) 2, Platelet Estimate Normal, Hypochromasia 1+, Anisocytosis 1+, Ovalocytes 1+, PT 24.9 H, INR 2.44 H, Sodium 135 L, Potassium 4.0, Chloride 92 L, Carbon Dioxide 36 H, Anion Gap 11.0, BUN 52 H D, Creatinine 1.70 H D, Estimated Creat Clear 51, Estimated GFR 31 L, Est GFR ( Amer) 37 L D, Glucose 252 H, Calcium 8.3 L I & O for Last 24 hours: Intake & Output 10/29/23 10/30/23 10/31/23 11/01/23 23:59 23:59 23:59 23:59 Intake Total 360 / 940 1529 / 2009 1280 / 1280 Output Total 200 / 200 1500 / 1500 2350 / 2350 Balance 160 / 740 30 / 510 -1070 / -1070 Weight 90.35 kg 90.855 kg 92.44 kg Constitutional Constitutional: no acute distress *Routine HEENT Exam Head: Present normocephalic Eye: Present EOMI and PERRL ENT: Present mucous membranes moist *Routine Neck Exam Neck: Present supple; Absent lymphadenopathy *Routine Respiratory Exam Respiratory: Present CTA bilaterally *Routine Cardiovascular Exam Cardiovascular: Present RRR *Routine Abdominal Exam Abdominal: Present soft, normoactive bowel sounds and distended; Absent tenderness *Routine Extremities Exam Extremities: Absent cyanosis, clubbing or edema *Routine Skin Exam Skin: Present warm; Absent rash *Routine Neurological Exam Neurological: Present alert and oriented X3 Assessment and Plan *Assessment and plan (1) COPD exacerbation: Status: Acute Category: Medical Code(s): J44.1 - Chronic obstructive pulmonary disease with (acute) exacerbation (2) Anemia: Status: Acute Qualifiers: Anemia type: acquired or hereditary hemolytic anemia Hemolytic anemia type: acquired, autoimmune, other Qualified Code(s): D59.19 - Other autoimmune hemolytic anemia Category: Medical Code(s): D64.9 - Anemia, unspecified (3) CKD (chronic kidney disease): Status: Acute Qualifiers: Chronic kidney disease stage: stage 3 (moderate) Chronic kidney disease stage 3 subtype: stage 3b (GFR 30-44) Qualified Code(s): N18.32 - Chronic kidney disease, stage 3b Category: Medical Code(s): N18.9 - Chronic kidney disease, unspecified (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 with INR goal of 2.5-3.5: Status: Chronic Category: Medical Code(s): Z79.01 - 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
[2023-11-02] VITALS (12 sets, daily range): BP systolic 105–127; BP diastolic 60–73; PULSE 77–118; RESP 18; TEMP 36.3–36.8; O2SAT 91–96; BMI 34.4
--- NOTE | 2023-11-02 04:02 | PC.NURSE ---
Pt C/O of soreness in tongue with concerns of thrush, Notified SINDHU Encarnacion with orders for magic mouthwash 15ml PO QID PRN
--- NOTE | 2023-11-02 04:05 | PC.NURSE ---
2044:Pt C/O of soreness in tongue with concerns of thrush, 2049:Notified SINDHU Encarnacion with orders for magic mouthwash 15ml PO QID PRN
--- NOTE | 2023-11-02 04:25 | PC.NURSE ---
Pt is A&Ox4 and currently on 2L of O2 and sating in the low to mid 90s. Pt c/o of soreness in mouth and tongue. magic mouthwash given for pain and discomfort. Pt continues to spit up discolored mucus. Lungs remain diminished with no changes. Pt denies all other needs and pain at this time.
[2023-11-02 07:05] LABS: Basophils % 0.2 % (0.1-2.0); Eosinophils # 0.2 K/mm3 (0.0-0.4); Eosinophils % 2.4 % (0.1-12.0); Hemoglobin 9.5 g/dL (12.2-16.2); Lymphocytes # 0.4 K/mm3 (0.7-4.5); Lymphocytes % 5.3 % (10-50); Mean Corpuscular HGB Conc 31.7 g/dL (31.8-35.4); Mean Corpuscular Hemoglobin 28.2 pg (27.0-31.2); Mean Corpuscular Volume 88.9 fl (81-99); Mean Platelet Volume 8.2 fl (7.4-10.4); Monocytes # 0.5 K/mm3 (0.1-1.0); Monocytes % 6.2 % (1.7-9.3); Neutrophils # 6.5 K/mm3 (1.8-7.8); Neutrophils % 85.9 % (37.0-80.0); Platelet Count 227 K/mm3 (142-424); Red Blood Count 3.37 M/mm3 (4.20-5.40); Red Cell Distribution Width 18.9 % (11.5-17.5); White Blood Count 7.6 K/mm3 (4.8-10.8)
[2023-11-02 07:06] LABS: Chloride 91 mmol/L (98-107)
[2023-11-02 07:07] LABS: Potassium 3.5 mmoL/L (3.5-5.1); Sodium 134 mmol/L (136-145)
[2023-11-02 07:10] LABS: Blood Urea Nitrogen 54 mg/dl (7-17); Calcium 8.7 mg/dl (8.4-10.2); Carbon Dioxide 37 mmol/L (22.0-30.0); Creatinine Clearance Estimated 58 mL/min (50-200); Estimated Glomerular Filt Rate 35 ml/min (>60); GFR (African American) 43 ML/MIN (>60); Glucose 195 mg/dl (74-100)
[2023-11-02 07:11] LABS: Anion Gap 9.5 mEq/L (5-15)
[2023-11-02 07:12] LABS: MANUAL DIFFERENTIAL MANUAL DIFFERENTIAL (MANUAL DIFF)
[2023-11-02 08:17] LABS: Eosinophils % 3 % (0-3); Hypochromasia 1+; Lymphocytes % 2 % (10-50); Monocytes % 7 % (2-9); Neutrophils % 88 % (42-76); Ovalocytes 1+; Platelet Estimate Normal; Total Cells Counted 100
--- NOTE | 2023-11-02 08:22 | PC.NURSE ---
COURTESY NOTE: morning round completed on pt. pt denies needing assistance at this time. call denise within reach. Aura SRNA
[2023-11-02 08:47] LABS: INR 2.16 (0.9-1.1); Prothrombin Time 22.2 seconds (10.1-12.5)
--- NOTE | 2023-11-02 08:58 | EXP.CARD.PN ---
Subjective Subjective Date: 11/02/23 Time: 08:58 Principal diagnosis: Shortness of breath with COPD and CHF exacerbation Interval history: 58-year-old white female in bed in no acute distress. Still with significant cough productive of colored phlegm. Exam Data for Last 24 hours Vital signs and Labs for Last 24 Hours: Temp Pulse Resp BP Pulse Ox O2 Del Method O2 Flow Rate 98.2 F 118 H 18 124/73 96 Nasal Cannula 2 11/02/23 07:40 11/02/23 07:40 11/02/23 07:40 11/02/23 07:40 11/02/23 07:40 11/02/23 08:31 11/02/23 08:31 Laboratory Results - last 24 hr 11/02/23 06:36: WBC 7.6, RBC 3.37 L, Hgb 9.5 L, Hct 30.0 L, MCV 88.9, MCH 28.2, MCHC 31.7 L, RDW 18.9 H, Plt Count 227, MPV 8.2, Neut % (Auto) 85.9 H, Lymph % (Auto) 5.3 L, [place] % (Auto) 6.2, Eos % (Auto) 2.4, Baso % (Auto) 0.2, Neut # (Auto) 6.5, Lymph # (Auto) 0.4 L, [place] # (Auto) 0.5, Eos # (Auto) 0.2, Baso # (Auto) 0.0, Total Counted 100, Neutrophils % (Manual) 88 H, Lymphocytes % (Manual) 2 L, Monocytes % (Manual) 7, Eosinophils % (Manual) 3, Platelet Estimate Normal, Hypochromasia 1+, Ovalocytes 1+, Sodium 134 L, Potassium 3.5, Chloride 91 L, Carbon Dioxide 37 H, Anion Gap 9.5, BUN 54 H, Creatinine 1.50 H, Estimated Creat Clear 58, Estimated GFR 35 L, Est GFR ( Amer) 43 L, Glucose 195 H, Calcium 8.7 11/02/23 08:25: PT 22.2 H, INR 2.16 H I & O for Last 24 hours: Intake & Output 10/30/23 10/31/23 11/01/23 11/02/23 11:59 11:59 11:59 11:59 Intake Total 1180 / 1180 1590 / 1590 1630 / 1630 Output Total 900 / 900 2900 / 2900 2350 / 2350 Balance 280 / 280 -1310 / -1310 -720 / -720 Weight 191 lb 200 lb 4.8 oz 203 lb 12.725 oz 201 lb 8 oz Constitutional Constitutional: no acute distress *Routine Respiratory Exam Respiratory: Present decreased breath sounds and wheezes *Routine Cardiovascular Exam Cardiovascular: Present click and irregularly irregular Progress Note: A&P Assessment and plan (1) COPD exacerbation: Status: Acute (2) Anemia: Status: Acute (3) CKD (chronic kidney disease): Status: Acute (4) rn long term care current use of anticoagulants with INR goal of 2.5-3.5: Status: Chronic (5) History of mitral valve replacement with mechanical valve: Status: Chronic (6) Acute on chronic HFrEF (heart failure with reduced ejection fraction): Status: Acute (7) CKD (chronic kidney disease) stage 3, GFR 30-59 ml/min: Status: Chronic (8) Diabetes mellitus: Status: Chronic (9) Atrial fibrillation, chronic: Status: Acute Assessment and Plan Assessment and Plan for All Diagnoses:: 1. COPD exacerbation with possible infiltrates -Continue antibiotics and nebulizer treatments 2. HFrEF with acute on chronic exacerbation -Continue to monitor fluid status -Continue IV Lasix and oral Aldactone -Echocardiogram this admission shows EF 25 to 30% (further reduced compared to February 11 study). Severe biatrial dilatation. Moderate to severe TR with RVSP 40-45 mmHg. Mechanical MVR functioning appropriate. -CardioMEMS in place but we have not been receiving information since 2020. Will try to get this reconnected. 3. Mechanical mitral valve -Functioning appropriately -Continue Coumadin therapy 4. Chronic kidney disease, stable -Creatinine 1.5 with GFR 35 5. Autoimmune hemolytic anemia -Continue to monitor and transfuse if needed for hemoglobin less than 9 -Followed by Hematology as outpatient 6. Chronic atrial fibrillation -Continue Coumadin therapy -Continue metoprolol therapy for rate control 7. Diabetes mellitus -Per hospitalist Continue to diurese Continue pulmonary treatment Will consider LHC once cough/respiratory issues improved. This can be done as outpatient.
--- NOTE | 2023-11-02 12:05 | PC.NURSE ---
COURTESY NOTE: afternoon round completed on pt. pt denies needing assistance at this time. call denise within reach. Cheko SRNA
--- NOTE | 2023-11-02 18:45 | EXP.ACUTE.PN ---
Subjective *Date: 11/02/23 *Time: 18:45 Interval history: Patient able to wean briefly this morning to room air. Has required 1 L intermittently through the day. Still having some scant hemoptysis and blood discharge from her nose. No nausea or vomiting. Still feels short of breath. INR 2.16 this morning. Diuresing well. Medical Exam Vital signs and Labs for Last 24 Hours: Vital Signs Temp Pulse Pulse Resp BP Pulse Ox O2 Del Method 11/02/23 18:29 Nasal Cannula 11/02/23 18:05 81 11/02/23 18:05 89 11/02/23 16:00 97.7 F 90 18 127/73 93 L Nasal Cannula 11/02/23 16:12 Room Air 11/02/23 14:15 77 11/02/23 14:15 82 11/02/23 14:03 Nasal Cannula 11/02/23 11:49 Nasal Cannula 11/02/23 11:24 78 11/02/23 11:24 89 11/02/23 10:36 Nasal Cannula 11/02/23 08:00 93 L Nasal Cannula 11/02/23 08:31 Nasal Cannula 11/02/23 07:40 98.2 F 118 H 18 124/73 96 Nasal Cannula 11/02/23 06:38 Nasal Cannula 11/02/23 06:10 90 11/02/23 06:10 92 H 11/02/23 06:10 96 Nasal Cannula 11/02/23 04:34 Nasal Cannula 11/02/23 04:00 97.9 F 97 H 18 109/72 L 95 Nasal Cannula 11/02/23 03:00 Nasal Cannula 11/02/23 02:08 96 H 11/02/23 02:08 99 H 11/02/23 00:43 Nasal Cannula 11/02/23 00:00 91 L Nasal Cannula 11/01/23 23:00 Nasal Cannula 11/01/23 23:55 98.0 F 103 H 22 93/68 L 91 L Nasal Cannula 11/01/23 22:09 95 H 11/01/23 22:09 93 H 11/01/23 21:00 Nasal Cannula 11/01/23 20:00 99 Nasal Cannula 11/01/23 19:54 97.6 F 92 H 20 114/81 99 Nasal Cannula O2 Flow Rate 11/02/23 18:29 2 11/02/23 18:05 11/02/23 18:05 11/02/23 16:00 2 11/02/23 16:12 11/02/23 14:15 11/02/23 14:15 11/02/23 14:03 2 11/02/23 11:49 2 11/02/23 11:24 11/02/23 11:24 11/02/23 10:36 2 11/02/23 08:00 2 11/02/23 08:31 2 11/02/23 07:40 11/02/23 06:38 2 11/02/23 06:10 11/02/23 06:10 11/02/23 06:10 2 11/02/23 04:34 2 11/02/23 04:00 11/02/23 03:00 2 11/02/23 02:08 11/02/23 02:08 11/02/23 00:43 2 11/02/23 00:00 2 11/01/23 23:00 2 11/01/23 23:55 11/01/23 22:09 11/01/23 22:09 11/01/23 21:00 2 11/01/23 20:00 2 11/01/23 19:54 2 Intake and Output 11/02/23 11/02/23 11/02/23 07:59 15:59 23:59 Intake Total 450 / 1230 480 / 1230 300 / 1230 Output Total 1400 / 1650 250 / 1650 0 / 1650 Balance -950 / -420 230 / -420 300 / -420 Intake: Intake, Oral Amount 450 / 1230 480 / 1230 300 / 1230 Output: Output, Urine Amount 1400 / 1650 250 / 1650 0 / 1650 Other: Number of Unmeasured Voids 1 Weight 91.399 kg Patient Weight 11/02/23 23:59 Weight 91.399 kg Laboratory Results - last 24 hr 11/02/23 06:36: WBC 7.6, RBC 3.37 L, Hgb 9.5 L, Hct 30.0 L, MCV 88.9, MCH 28.2, MCHC 31.7 L, RDW 18.9 H, Plt Count 227, MPV 8.2, Neut % (Auto) 85.9 H, Lymph % (Auto) 5.3 L, [place] % (Auto) 6.2, Eos % (Auto) 2.4, Baso % (Auto) 0.2, Neut # (Auto) 6.5, Lymph # (Auto) 0.4 L, [place] # (Auto) 0.5, Eos # (Auto) 0.2, Baso # (Auto) 0.0, Total Counted 100, Neutrophils % (Manual) 88 H, Lymphocytes % (Manual) 2 L, Monocytes % (Manual) 7, Eosinophils % (Manual) 3, Platelet Estimate Normal, Hypochromasia 1+, Ovalocytes 1+, Sodium 134 L, Potassium 3.5, Chloride 91 L, Carbon Dioxide 37 H, Anion Gap 9.5, BUN 54 H, Creatinine 1.50 H, Estimated Creat Clear 58, Estimated GFR 35 L, Est GFR ( Amer) 43 L, Glucose 195 H, Calcium 8.7 11/02/23 08:25: PT 22.2 H, INR 2.16 H I & O for Labs for Last 24 Hours: Intake & Output 10/30/23 10/31/23 11/01/23 11/02/23 23:59 23:59 23:59 23:59 Intake Total 360 / 940 1529 / 2010 2059 1230 / 1230 Output Total 200 / 200 1500 / 1500 3050 / 3900 1650 / 1650 Balance 160 / 740 30 / 510 -990 / -1840 -420 / -420 Weight 90.35 kg 90.855 kg 92.44 kg 91.399 kg Constitutional: Prese
[2023-11-02 20:48] LABS: POC Glucose,Bedside 158 (70-110)
[2023-11-03] VITALS (8 sets, daily range): BP systolic 108–117; BP diastolic 72–73; PULSE 77–93; RESP 19–20; TEMP 36.4–36.5; O2SAT 81–94; BMI 34.7
--- NOTE | 2023-11-03 02:34 | PC.NURSE ---
Rt Note: Pt provided sputum sample. sent to lab
--- NOTE | 2023-11-03 05:12 | PC.NURSE ---
pt is A/Ox4, currently on 2L of O2 sating in mid 90s. Pt continues to spit up discolored sputum, specimen sent to lab for testing. Pt states that her breathing has improved while resting but continues to be SOB when ambulating to the BR. Pt has complained of pain once this shift and has taken pain medication. Pt denies other needs at this time.
[2023-11-03 06:59] LABS: Chloride 93 mmol/L (98-107); Potassium 3.7 mmoL/L (3.5-5.1); Sodium 135 mmol/L (136-145)
[2023-11-03 07:01] LABS: Prothrombin Time 23.5 seconds (10.1-12.5)
[2023-11-03 07:02] LABS: Anion Gap 7.7 mEq/L (5-15); Blood Urea Nitrogen 52 mg/dl (7-17); Calcium 8.8 mg/dl (8.4-10.2); Carbon Dioxide 38 mmol/L (22.0-30.0); Creatinine Clearance Estimated 54 mL/min (50-200); Estimated Glomerular Filt Rate 33 ml/min (>60); GFR (African American) 40 ML/MIN (>60); Glucose 102 mg/dl (74-100)
[2023-11-03 07:42] LABS: Basophils % 0.3 % (0.1-2.0); Eosinophils # 0.3 K/mm3 (0.0-0.4); Eosinophils % 3.2 % (0.1-12.0); Hematocrit 30.3 % (37.0-47.0); Hemoglobin 9.5 g/dL (12.2-16.2); Lymphocytes # 0.5 K/mm3 (0.7-4.5); Lymphocytes % 6.1 % (10-50); Mean Corpuscular HGB Conc 31.5 g/dL (31.8-35.4); Mean Corpuscular Hemoglobin 27.6 pg (27.0-31.2); Mean Corpuscular Volume 87.5 fl (81-99); Mean Platelet Volume 8.3 fl (7.4-10.4); Monocytes # 0.4 K/mm3 (0.1-1.0); Monocytes % 5.4 % (1.7-9.3); Neutrophils # 6.7 K/mm3 (1.8-7.8); Neutrophils % 85.1 % (37.0-80.0); Platelet Count 243 K/mm3 (142-424); Red Blood Count 3.46 M/mm3 (4.20-5.40); Red Cell Distribution Width 18.8 % (11.5-17.5); White Blood Count 7.8 K/mm3 (4.8-10.8)
[2023-11-03 07:44] LABS: MANUAL DIFFERENTIAL MANUAL DIFFERENTIAL (MANUAL DIFF)
--- NOTE | 2023-11-03 08:05 | EXP.DC.SUM ---
General Admission date:: 10/30/23 Discharge date: 11/03/23 HPI HPI HPI: Patient is a 58-year-old female with past medical history of diabetes mellitus COPD CAD atrial fibrillation who presented to hospital due to shortness of breath. Patient mentions she has been having sore throat, chills. She has been feeling worse, on further evaluation in the emergency department she was noted to have leukocytosis as well as mild peribronchial thickening on x-ray. Hospital Course Hospital Course Hospital Course: Patient is a 58-year-old female with past medical history of diabetes mellitus COPD CAD atrial fibrillation who presented to hospital due to shortness of breath. Patient mentions she has been having sore throat, chills. She has been feeling worse, on further evaluation in the emergency department she was noted to have leukocytosis as well as mild peribronchial thickening on x-ray. Patient has been slow to respond to therapy. Continuing to diurese. Cardiology consulted and assisting with care. Patient improved and stable for discharge home. Necessitating oxygen, has oxygen at home as needed, reordered as she will need it continuously at least for the short-term. Plan for close follow-up with PCP and cardiology. Problems addressed as follows: COPD with exacerbation Acute hypoxemic respiratory failure -Patient initiated on antibiotics, DuoNebs, Tessalon Perles and oxygen. Has done well and weaned to room air occasionally at rest but other times necessitating 1 to 2 L. Will continue supplemental oxygen at discharge. Continue levofloxacin 500 mg daily to complete 7 days of antibiotics. Continue DuoNebs at home. Sent home with prescription of Tessalon Perles for her cough. HFrEF with acute on chronic exacerbation Chronic atrial fibrillation -Continue metoprolol daily 200 mg extended release for rate control. Has had a component of volume overload. Treated with IV Lasix and Aldactone. Transition to oral therapy at discharge. Echocardiogram this admission shows EF 25 to 30% (further reduced compared to February 11 study). Severe biatrial dilatation. Moderate to severe TR with RVSP 40-45 mmHg. Mechanical MVR functioning appropriate. Cardiology consulted, appreciate their recommendations. Report that she has a CardioMEMS in place but we have not been receiving information since 2020. Will try to get this reconnected. Mechanical mitral valve -Functioning appropriately, Continue Coumadin therapy. INR 2.3 on day of discharge. Goal 2.5-3.5. Plan for close follow-up with Coumadin clinic. No adjustments made to warfarin regimen at this time. Chronic kidney disease, stable: Creatinine 1.6, BUN 52 on day of discharge. This appears to be her baseline. Diabetes: A1c traditionally well-controlled in the 6 range per chart review. Treated with sliding scale insulin and fingersticks during admission. Resume home regimen at discharge. Hypothyroidism: Continue levothyroxine 25 mcg daily Exam Data for Last 24 hours Vital signs and Labs for Last 24 Hours: Temp Pulse Resp BP Pulse Ox O2 Del Method O2 Flow Rate 97.7 F 82 20 108/73 L 93 L Nasal Cannula 2 11/03/23 08:00 11/03/23 08:00 11/03/23 08:00 11/03/23 08:00 11/03/23 08:00 11/03/23 08:00 11/03/23 07:00 Laboratory Results - last 24 hr 11/02/23 06:36: Total Counted 100, Neutrophils % (Manual) 88 H, Lymphocytes % (Manual) 2 L, Monocytes % (Manual) 7, Eosinophils % (Manual) 3, Platelet Estimate Normal, Hypochromasia 1+, Ovalocytes 1+ 11/02/23 08:25: PT 22.2 H, INR 2.16 H 11/02/23 20:40: POC Glucose 158 H 11/03/23 06:25: WBC 7.8, RBC 3.46 L, Hgb 9.5 L, Hct 30.3 L, MCV 87.5, MCH 27.6, MCHC 31.5 L, RDW 18.8 H, Plt Count 243, MPV 8.3, Neut % (Auto) 85.1 H, Lymph % (Auto) 6.1 L, [place] % (Auto) 5.4, Eos % (Auto) 3.2, Baso % (Auto) 0.3, Neut # (Auto) 6.7, Lymph # (Auto) 0.5 L, [place] # (Auto) 0.4, Eos # (Auto) 0.3, Baso # (Auto) 0.0, PT 23.5 H, INR 2.30 H, Sodium 135 L, Potassium 3.7, Chloride 9
--- NOTE | 2023-11-03 09:04 | EXP.CARD.PN ---
Subjective Subjective Date: 11/03/23 Time: 09:04 Principal diagnosis: Shortness of breath with COPD and CHF exacerbation Interval history: 58-year-old white female sitting in bed in no acute distress. Still short of breath with exertion but states overall she feels like she is slowly getting better. Her cough is still productive but in smaller amounts. She feels like the Tessalon Perles did help with her cough Exam Data for Last 24 hours Vital signs and Labs for Last 24 Hours: Temp Pulse Resp BP Pulse Ox O2 Del Method O2 Flow Rate 97.7 F 82 20 108/73 L 93 L Nasal Cannula 2 11/03/23 08:00 11/03/23 08:00 11/03/23 08:00 11/03/23 08:00 11/03/23 08:00 11/03/23 08:00 11/03/23 07:00 Laboratory Results - last 24 hr 11/02/23 20:40: POC Glucose 158 H 11/03/23 06:25: WBC 7.8, RBC 3.46 L, Hgb 9.5 L, Hct 30.3 L, MCV 87.5, MCH 27.6, MCHC 31.5 L, RDW 18.8 H, Plt Count 243, MPV 8.3, Neut % (Auto) 85.1 H, Lymph % (Auto) 6.1 L, [place] % (Auto) 5.4, Eos % (Auto) 3.2, Baso % (Auto) 0.3, Neut # (Auto) 6.7, Lymph # (Auto) 0.5 L, [place] # (Auto) 0.4, Eos # (Auto) 0.3, Baso # (Auto) 0.0, PT 23.5 H, INR 2.30 H, Sodium 135 L, Potassium 3.7, Chloride 93 L, Carbon Dioxide 38 H, Anion Gap 7.7, BUN 52 H, Creatinine 1.60 H, Estimated Creat Clear 54, Estimated GFR 33 L, Est GFR ( Amer) 40 L, Glucose 102 H D, Calcium 8.8 I & O for Last 24 hours: Intake & Output 10/31/23 11/01/23 11/02/23 11/03/23 11:59 11:59 11:59 11:59 Intake Total 1180 / 1180 1590 / 1590 1630 / 1630 1260 / 1260 Output Total 900 / 900 2900 / 2900 2600 / 2600 900 / 900 Balance 280 / 280 -1310 / -1310 -970 / -970 360 / 360 Weight 200 lb 4.8 oz 203 lb 12.725 oz 201 lb 8 oz 203 lb 7 oz Constitutional Constitutional: no acute distress *Routine Respiratory Exam Respiratory: Present decreased breath sounds and rhonchi *Routine Cardiovascular Exam Cardiovascular: Present click and irregularly irregular Progress Note: A&P Assessment and plan (1) COPD exacerbation: Status: Acute (2) Anemia: Status: Acute (3) CKD (chronic kidney disease): Status: Acute (4) CHCF current use of anticoagulants with INR goal of 2.5-3.5: Status: Chronic (5) History of mitral valve replacement with mechanical valve: Status: Chronic (6) Acute on chronic HFrEF (heart failure with reduced ejection fraction): Status: Acute (7) CKD (chronic kidney disease) stage 3, GFR 30-59 ml/min: Status: Chronic (8) Diabetes mellitus: Status: Chronic (9) Atrial fibrillation, chronic: Status: Acute Assessment and Plan Assessment and Plan for All Diagnoses:: 1. COPD exacerbation with possible infiltrates -Continue antibiotics and nebulizer treatments 2. HFrEF with acute on chronic exacerbation -Patient has diuresed 1600 mL -Continue Lasix and oral Aldactone -Echocardiogram this admission shows EF 25 to 30% (further reduced compared to February 11 study). Severe biatrial dilatation. Moderate to severe TR with RVSP 40-45 mmHg. Mechanical MVR functioning appropriate. -CardioMEMS in place but we have not been receiving information since 2020. Will try to get this reconnected as outpatient. 3. Mechanical mitral valve -Functioning appropriately -Continue Coumadin therapy 4. Chronic kidney disease, stable -Creatinine 1.6 with GFR 33 5. Autoimmune hemolytic anemia -Continue to monitor and transfuse if needed for hemoglobin less than 9 -Followed by Hematology as outpatient 6. Chronic atrial fibrillation -Continue Coumadin therapy -Continue metoprolol therapy for rate control 7. Diabetes mellitus -Per hospitalist Stable from a cardiac standpoint for discharge home. Home medication recommendations: Aspirin 81 mg daily Coumadin as directed Metoprolol succinate 200 mg daily Resume Bumex 1 mg twice daily Spironolactone 25 mg twice daily Potassium 20 mill equivalents twice daily Omeprazole 40 mg twice daily Follow-up in our o
[2023-11-03 10:17] LABS: Eosinophils % 2 % (0-3); Lymphocytes % 8 % (10-50); Monocytes % 4 % (2-9); Neutrophils % 86 % (42-76); Platelet Estimate Normal; RBC Morphology Normal; Total Cells Counted 100
[2023-11-03 11:24] LABS: POC Glucose,Bedside 212 (70-110)
[2023-11-03 11:24] LABS: POC Glucose,Bedside 373 (70-110)
[2023-11-03 11:24] LABS: POC Glucose,Bedside 181 (70-110)
[2023-11-03 11:24] LABS: POC Glucose,Bedside 210 (70-110)
[2023-11-03 11:24] LABS: POC Glucose,Bedside 268 (70-110)
[2023-11-03 11:24] LABS: POC Glucose,Bedside 164 (70-110)
[2023-11-03 11:24] LABS: POC Glucose,Bedside 191 (70-110)
[2023-11-03 11:24] LABS: POC Glucose,Bedside 217 (70-110)
[2023-11-03 11:25] LABS: POC Glucose,Bedside 242 (70-110)
[2023-11-03 11:25] LABS: POC Glucose,Bedside 112 (70-110)
[2023-11-03 11:25] LABS: POC Glucose,Bedside 112 (70-110)
--- NOTE | 2023-11-03 11:37 | CARE MANAGER ---
Spoke with Ellie MCMILLAN as that is who the patient received her PRN O2 through and faxed information for continuous and portable Oxygen.
[2023-11-03 12:25] LABS: POC Glucose,Bedside 153 (70-110)
[2023-11-03 15:57] LABS: POC Glucose,Bedside 159 (70-110)
--- NOTE | 2023-11-04 13:52 | CARE MANAGER ---
Spoke with patient related to hospital discharge. She states she continues to wear her O2 and her has gone to lease picker her prescriptions. She is aware of her follow up appointments and denies any questions or concerns. JEREMIAH Hillman
== END 2023-11-03 16:43 | disposition home or self-care (01) ==
LOC: ER 10:55 → 2ND 14:53
PROVIDERS: Internal Medicine Adolescent Medicine; Admitting Provider Internal Medicine; Emergency Provider Emergency Medicine; PCP Internal Medicine Adolescent Medicine; Visit Provider Internal Medicine
DX: J44.1 Chronic obstructive pulmonary disease with (acute) exacerbation (principal); I95.9 Hypotension, unspecified; E78.2 Mixed hyperlipidemia; I11.0 Hypertensive heart disease with heart failure; I50.33 Acute on chronic diastolic (congestive) heart failure; D59.19 Other autoimmune hemolytic anemia; N18.32 Chronic kidney disease, stage 3b; Z79.01 Long term (current) use of anticoagulants; Z95.2 Presence of prosthetic heart valve; I50.23 Acute on chronic systolic (congestive) heart failure; I48.20 Chronic atrial fibrillation, unspecified; E11.22 Type 2 diabetes mellitus with diabetic chronic kidney disease; I12.9 Hypertensive chronic kidney disease with stage 1 through stage 4 chronic kidney disease, or unspecified chronic kidney disease; Z86.718 Personal history of other venous thrombosis and embolism; M19.90 Unspecified osteoarthritis, unspecified site; I42.9 Cardiomyopathy, unspecified; E03.9 Hypothyroidism, unspecified; D59.10 Autoimmune hemolytic anemia, unspecified; K21.9 Gastro-esophageal reflux disease without esophagitis; Z79.4 Long term (current) use of insulin
CPT/HCPCS: 36415; 71046; 80048; 80053; 82803; 82962; 83735; 83880; 84100; 84484; 85007; 85025; 85610; 87070; 87205; 87636; 93005; 93306; 94640; 94760; 94761; 99285; G0378; J0696; J1956; J3475

== ENCOUNTER 2023-11-05 12:30 | Outpatient (CLI) | payer MEDICARE, MEDICAID, SELFPAY ==
[2023-11-05 12:51] VITALS: BP 135/73; PULSE 89; RESP 16; TEMP 36.6; O2SAT 96
[2023-11-05 13:10] LABS: INR 2.34 (0.9-1.1); Prothrombin Time 23.9 seconds (10.1-12.5)
[2023-11-05 13:43] VITALS: BP 106/67; PULSE 84; RESP 18; O2SAT 94
== END 2023-11-05 13:48 | disposition home or self-care (01) ==
LOC: INF 12:31
PROVIDERS: PCP Internal Medicine Adolescent Medicine; Visit Provider Internal Medicine Medical Oncology
DX: Z79.01 Long term (current) use of anticoagulants (principal); D50.9 Iron deficiency anemia, unspecified; Z51.81 Encounter for therapeutic drug level monitoring; Z45.2 Encounter for adjustment and management of vascular access device
CPT/HCPCS: 36591; 85610; 96365; J1439; J1642

== ENCOUNTER 2023-11-16 10:23 | Outpatient (CLI) | payer MEDICARE, MEDICAID, SELFPAY ==
[2023-11-16 10:29] VITALS: BMI 33.7
[2023-11-16 10:45] LABS: Basophils % 0.6 % (0.1-2.0); Eosinophils # 0.2 K/mm3 (0.0-0.4); Eosinophils % 2.9 % (0.1-12.0); Hematocrit 34.4 % (37.0-47.0); Hemoglobin 10.8 g/dL (12.2-16.2); Lymphocytes # 0.4 K/mm3 (0.7-4.5); Lymphocytes % 6.1 % (10-50); Mean Corpuscular HGB Conc 31.5 g/dL (31.8-35.4); Mean Corpuscular Hemoglobin 27.9 pg (27.0-31.2); Mean Corpuscular Volume 88.5 fl (81-99); Mean Platelet Volume 8.5 fl (7.4-10.4); Monocytes # 0.4 K/mm3 (0.1-1.0); Monocytes % 5.5 % (1.7-9.3); Neutrophils # 5.9 K/mm3 (1.8-7.8); Platelet Count 270 K/mm3 (142-424); Red Blood Count 3.89 M/mm3 (4.20-5.40); Red Cell Distribution Width 19.3 % (11.5-17.5)
[2023-11-16 10:50] LABS: MANUAL DIFFERENTIAL MANUAL DIFFERENTIAL (MANUAL DIFF)
[2023-11-16] MEDS: SODIUM CHLORIDE 0.9% 10ML FLUSH SYRINGE 10 ML IV (10:50)
[2023-11-16 11:14] LABS: Lymphocytes % 7 % (10-50); Monocytes % 3 % (2-9); Neutrophils % 90 % (42-76); Total Cells Counted 100
[2023-11-16 11:15] LABS: Platelet Estimate Normal; RBC Morphology Normal
== END 2023-11-16 10:55 | disposition home or self-care (01) ==
LOC: INF 10:24
PROVIDERS: PCP Internal Medicine Adolescent Medicine; Visit Provider Internal Medicine Medical Oncology
DX: Z45.2 Encounter for adjustment and management of vascular access device (principal); D50.9 Iron deficiency anemia, unspecified
CPT/HCPCS: 36591; 85007; 85025; J1642

== ENCOUNTER 2023-11-18 08:50 | Day surgery (SDC) | payer MEDICARE, MEDICAID, SELFPAY ==
[2023-11-18] VITALS (17 sets, daily range): BP systolic 100–141; BP diastolic 56–92; PULSE 60–88; RESP 14–22; TEMP 36.4–36.6; O2SAT 92–98; BMI 34.3
--- NOTE | 2023-11-18 08:59 | CA_ITS ---
APPROVED REPORT EXAM: Comprehensive 2D, Doppler, and color-flow Echocardiogram Hook Tender: Malini Del Cid RVT Ht: 5 ft 4 in Wt: 207lbs BSA: 1.99 BP: 111/52 mmHg Indications: CM,MECH MVR,A-FIB,COPD,HTN,HLD,CHF Procedure After obtaining informed consent, patient underwent transesophageal echo in the [facility]. Type of Sedation : MAC Sedation was administered by Vishal RoldanNAnatoliy Sedation start time: 10:15 Case end Time: 10:32 Sedation was achieved intravenously with: Propofol (150) Transesophageal probe was inserted and advanced into esophagus without difficulty by Dr. Sade Caldwell. Complication encountered: Esophageal perforation and bleeding (full event in conclusion section) Throughout the procedure, the blood pressure, pulse oximetry, cardiac rhythm, and rate were monitored. The patient tolerated the procedure without adverse effects. Recovery from conscious sedation was uneventful and vital signs were stable. Left Ventricle The left ventricle is normal size. Left ventricular systolic function is severely decreased. There is normal left ventricular wall thickness. There is severe global hypokinesis present. LVEF is 25-30%. Right Ventricle Right ventricle is mildly dilated. Right ventricle is mildly hypokinetic. Atria Left atrium is severely dilated. There is spontaneous contrast in the left atrial appendange, but no evidence of masses or thrombi. Right atrium is severely dilated. Interatrial septum is intact without evidence of ASD or PFO. Aortic Valve The aortic valve is trileaflet. The aortic valve opens well. There is no aortic valvular stenosis. Mild aortic regurgitation. Mitral Valve s/p mechanical mitral valve replacement. The MV prosthesis is well-seated. Both mechanical discs open well with good unrestricted mobility. No evidence of masses or pannus formation. No evidence of mitral stenosis. Normal peak E velocity 1.1 m/s. PHT is 60 ms. Mean MV gradient 4 mmHg (HR 76 bpm). Trace mitral regurgitation, which likely represents physiologic washing jets of the MVR. Tricuspid Valve The tricuspid valve leaflets are thin and pliable. Moderate to severe tricuspid regurgitation. RVSP is 18 mmHg + RA pressure. Pulmonic Valve The pulmonary valve is normal in structure. Trace pulmonic regurgitation. Great Vessels The aortic root is normal in size. The ascending aorta is normal in size. Pericardium There is no pericardial effusion. Other Information Study Quality: Technically Difficult Conclusion Technically difficult study due to presence of mechanical valve and significant shadowing artifact. Mild RV dilation with mild RV dysfunction. Spontaneous contrast in the YOSVANY, but no evidence of YOSVANY thrombus. s/p mechanical MVR. The MVR discs open well, no evidence of masses or thrombi. No pannus formation. Normal MV gradient. Moderate to severe TR. COMPLICATION NOTE Post-CHUCHO care + Esophageal Perforation (complication): The patient underwent CHUCHO today to evaluate the MVR in the setting of ongoing symptoms of fatigue, dyspnea, and intermittent chest pains. Pre-op labs showed subtherapeutic INR=1.4. Before the procedure, we discussed with the patient the need to start Lovenox bridging post-procedure until INR is therapeutic. The intraprocedural course was overall uncomplicated. The LVEF was noted to be reduced, MVR appears well-positioned with good disc mobility. Severe TR present. At the end of the procedure, the endoscopy was noted to be blood-tinged. Post-procedure, the patient woke up in stable condition. Over the course of the next 1 hr after the procedure, she continued to have persistent throat pain , intermittent cough, and blood-tinged sputum. Eventually, we ordered stat CT neck/chest to evaluate for esophageal perforation in the setting of recent endoscopic procedure. The CT confirmed the presence of esophageal perforation with air leak in the mediastinum (without hematoma). Subsequently, she was ordered to remain NPO and was started on IV empiric ABX for GI coverage with Zosyn. She was also started on PPI IV, and pain management with morphine and NSAIDs. The decision was made not to immediately place nasogastric tube to until she is transferred into another center with thoracic sugery back-up (as this may result in further perforation/complication). Simultaneously, I called Dr. Arrieta at [facility] who kindly promptly accepted the transfer request. I updated the patient and her daughter, Urszula, with the above results and the need to transfer to a facility with surgical back-up. She was agreeable with the plan and appreciative of the care. The patient eventually trasnferred out of our hospital in stable condition at approximately 15:00 (vital signs throughout: HR 70s in AFib, BP 110s/70s). Electronically signed by : Sade Caldwell MD 11/18/2023 17:39:41
--- NOTE | 2023-11-18 09:02 | ECG_ITS ---
APPROVED REPORT Exam: Resting ECG HR:65 bpm ECG Measurements Heart Rate 65 AXES QRSd 106 QRS 93 QT 423 T 81 QTc 435 Conclusion ATRIAL FIBRILLATION BORDERLINE RIGHT AXIS DEVIATION [QRS AXIS > 90] LOW QRS VOLTAGE IN PRECORDIAL LEADS [QRS DEFLECTION < 1.0 mV IN CHEST LEADS] INCOMPLETE RIGHT BUNDLE BRANCH BLOCK [90+ ms QRS DURATION, TERMINAL R IN V1/V2, 40+ ms S IN I/aVL/V4/V5/V6] ABNORMAL RHYTHM ECG UNCONFIRMED REPORT Electronically signed by : Reji Castro MD 11/19/2023 07:48:06
--- NOTE | 2023-11-18 09:11 | P.PNANES_ITS ---
[facility] Disclaimer: The information contained in this section may have been updated after the patient was seen, as this information can be updated by other users. Medical History Afib Afib Anemia Anemia Arrhythmia Arrhythmia Arthritis Arthritis Autoimmune hemolytic anemia Blood transfusion reaction Blood transfusion reaction CAD (coronary artery disease) Cancer Cardiomyopathy Cardiomyopathy CHF (congestive heart failure) CHF (congestive heart failure) CKD (chronic kidney disease) Congestive heart failure, NYHA class III COPD (chronic obstructive pulmonary disease) COPD (chronic obstructive pulmonary disease) Coronary artery disease Diabetes mellitus DM type 2 (diabetes mellitus, type 2) DVT (deep venous thrombosis) DVT (deep venous thrombosis) Dyspnea GERD (gastroesophageal reflux disease) GERD (gastroesophageal reflux disease) Hernia HLD (hyperlipidemia) HLD (hyperlipidemia) HLD (hyperlipidemia) HTN (hypertension) Hyperlipidemia Hypertension Hypothyroidism Hypothyroidism Liver disease Liver disease NYHA class 3 acute on chronic systolic heart failure Polyarthralgia Pulmonary edema Rheumatic heart disease Rib fracture Sinus problem Sinus problem Systolic CHF Thyroid disease Typical angina Valvular heart disease Surgical History H/O tubal ligation History of angioplasty History of cardiac cath History of cardiac catheterization History of colon resection History of colon resection History of hernia repair History of renal stent History of renal stent History of tubal ligation History of ureteroscopy Mitral valve replaced Family History Other COPD (chronic obstructive pulmonary disease) Hypertension Social History Smoking Status: Former smoker tobacco type: cigarettes packs per day: 1 smoking status stop date: 01/09/2006 quit status: quit date established second hand exposure: Yes alcohol intake: never substance use type: denies use current occupational status: retired and disabled Travel in the last 8 weeks: None adopted: No caregiver/support person: No foster care: No household members: significant other housing: house lives independently: Yes marital status: life partner education level: college service: No halfway: No current occupational exposures/hazards: No sexually active: Yes how many partners: 1 are you practicing safe sex: Yes diet: diabetic well-balanced diet: about half the time caffeine: Yes eating out: rarely or never during the past year weight has: remained stable bhavya/baptism: Jehovah'S Witness special bhavya needs: No agree to transfusion: Yes helmet use: No water heater temp set < 120 deg: Yes working smoke detector in home: Yes fire extinguisher in home: Yes carbon monox detector in home: Yes firearms in home: No do you feel safe at home: Yes victim of physical abuse: No victim of emotional abuse: No victim of sexual abuse: No would you like helpful sources: No [facility] Anesthesia Checklist Patient Identification Patient Identification: Arm Band and Verbal (Name & ) Structural Data Admitted From: Home Planned Operative Procedure/s: CHUCHO Consent for Planned Operative Procedure(s) Verified: Yes NPO Status Verified Time NPO: 00:00 Additional verifications Anesthesia Reactions: No Hx Blood Transfusions: No Blood Transfusion Reaction: Yes Airway Assessment Mallampati Score:: Class II C-Spine Mobility Assessed: Yes TMJ Mobility Assessed: Yes Dentition: Good Dentition Neurological Assessment Level of Consciousness: Awake Hx Seizures: No Numbness or tingling in extremities: No Anesthesia Plan Anesthesia Risk discussed: Yes Anesthesia Plan: Verified ASA Class: III Anesthesia Type: MAC
[2023-11-18 09:24] LABS: Basophils % 0.5 % (0.1-2.0); Eosinophils # 0.2 K/mm3 (0.0-0.4); Eosinophils % 3.4 % (0.1-12.0); Hematocrit 33.7 % (37.0-47.0); Hemoglobin 10.6 g/dL (12.2-16.2); Lymphocytes # 0.4 K/mm3 (0.7-4.5); Lymphocytes % 6.6 % (10-50); Mean Corpuscular HGB Conc 31.5 g/dL (31.8-35.4); Mean Corpuscular Hemoglobin 27.9 pg (27.0-31.2); Mean Corpuscular Volume 88.7 fl (81-99); Mean Platelet Volume 8.5 fl (7.4-10.4); Monocytes # 0.3 K/mm3 (0.1-1.0); Monocytes % 5.6 % (1.7-9.3); Platelet Count 236 K/mm3 (142-424); Red Cell Distribution Width 19.1 % (11.5-17.5)
[2023-11-18 09:28] LABS: Chloride 98 mmol/L (98-107); Sodium 138 mmol/L (136-145)
[2023-11-18 09:29] LABS: Potassium 3.8 mmoL/L (3.5-5.1)
[2023-11-18] MEDS: LACTATED RINGERS 1000ML 1,000 ML 25 ML IV (09:29)
[2023-11-18 09:31] LABS: Blood Urea Nitrogen 31 mg/dl (7-17); Creatinine Clearance Estimated 71 mL/min (50-200); Estimated Glomerular Filt Rate 46 ml/min (>60); GFR (African American) 55 ML/MIN (>60)
[2023-11-18 09:32] LABS: Anion Gap 11.8 mEq/L (5-15); Carbon Dioxide 32 mmol/L (22.0-30.0); Glucose 203 mg/dl (74-100)
[2023-11-18 09:34] LABS: INR 1.49 (0.9-1.1); Prothrombin Time 15.7 seconds (10.1-12.5)
--- NOTE | 2023-11-18 11:55 | CT_ITS ---
FINAL REPORT TECHNIQUE: Axial images were obtained through the chest without contrast. CLINICAL HISTORY: bleeding status post justin COMPARISON: 04/03/2023 FINDINGS: There is a right upper anterior chest port with the tip in the SVC. Median sternotomy wires are noted. There are small scattered mediastinal lymph nodes which are nonspecific and measure up to 1.4 cm. These appear similar to the prior exam. There is scarring in the left upper lobe and left lower lobe. Limited images of the upper abdomen demonstrate a 3.2 x 2.8 cm right adrenal mass with a mean attenuation value of 24 Hounsfield units. This is indeterminate but is sequentially growing. IMPRESSION: No acute mediastinal abnormality. Significant increase in size of right adrenal mass of concern. Given indeterminate nature and increase in size, tissue sampling is recommended. Findings were discussed with Dr. Caldwell at 1:15 PM on 11/18/2023 Reviewed, Interpreted and Dictated by Urbano Gracia MD Transcribed by Pamela Carpenter Authenticated and . [facility]
--- NOTE | 2023-11-18 11:55 | CT_ITS ---
FINAL REPORT TECHNIQUE: Thin section axial CT images with coronal and sagittal reformats were performed through the neck. This study was performed with techniques to keep radiation doses as low as reasonably achievable (ALARA). Individualized dose reduction techniques using automated exposure control or adjustment of mA and/or kV according to the patient''s size were employed. CLINICAL HISTORY: bleeding status post justin FINDINGS: The thyroid gland is heterogeneous probably related to a diffuse goiter. There are a few small scattered cervical lymph nodes. Subcutaneous emphysema is identified in the precervical soft tissues. This abnormal area extends from the posterior oropharynx to the level of the thyroid measuring 12 cm in craniocaudal dimension, 4.6 cm in transverse dimension, and up to 1 cm in AP dimension. There is no associated hematoma. The source of the air is unclear. Visualized paranasal sinuses are well-aerated. IMPRESSION: 1. Abnormal air collection in the prevertebral soft tissues, source unclear. A perforation of the posterior oropharynx or proximal esophagus is not entirely excluded. 2. No evidence of hematoma. Findings were discussed with Dr. Caldwell at 1:15 PM on 11/18/2023 Reviewed, Interpreted and Dictated by Urbano Gracia MD Transcribed by Pamela Carpenter Authenticated and [facility]
[2023-11-18] MEDS: IPRATROPIUM/ALBUTEROL 3 ML NEB IH (13:00)
[2023-11-18] MEDS: MORPHINE 4MG/ML SYRINGE 4 MG IV ×2 (13:46→15:49)
[2023-11-18] MEDS: PIPERACILLIN/TAZO 3.375 GM in 0.9 % SODIUM CHLORIDE 50 ML IV (13:46)
--- NOTE | 2023-11-18 14:56 | SUR.PHASEII ---
Spoke to Niya at [facility], No bed available at this time. Pt is in bay at this time, playing on phone, VSKe
--- NOTE | 2023-11-18 15:19 | SUR.PHASEII ---
Dalia RN at [facility] given report at this time. Currently waiting on [facility] for transport. Pt resting in room at this time, no needs voiced, VSS.
--- NOTE | 2023-11-18 19:38 | PC.NURSE ---
spoke with pharmacist at who questioned if patient had received any antibiotics or antifungals. confirmed zosyn dosage.
[2023-11-19 09:09] LABS: POC Glucose,Bedside 174 (70-110)
[2023-11-19 09:09] LABS: POC Glucose,Bedside 206 (70-110)
== END 2023-11-18 16:01 | disposition short-term general hospital (02) ==
PROVIDERS: PCP Internal Medicine Adolescent Medicine; Visit Provider Internal Medicine
DX: K91.72 Accidental puncture and laceration of a digestive system organ or structure during other procedure; Y65.8 Other specified misadventures during surgical and medical care; E78.5 Hyperlipidemia, unspecified; I07.1 Rheumatic tricuspid insufficiency; I48.20 Chronic atrial fibrillation, unspecified; I50.30 Unspecified diastolic (congestive) heart failure; N18.4 Chronic kidney disease, stage 4 (severe); I11.0 Hypertensive heart disease with heart failure; Z79.01 Long term (current) use of anticoagulants; Z95.2 Presence of prosthetic heart valve; E11.22 Type 2 diabetes mellitus with diabetic chronic kidney disease; Z79.4 Long term (current) use of insulin; Z79.899 Other long term (current) drug therapy
CPT/HCPCS: 70490; 71250; 80048; 82962; 85025; 85610; 93005; 93270; 93312; 93319; 94640; J2543

== ENCOUNTER 2023-11-25 10:32 | Outpatient (CLI) | payer MEDICARE, MEDICAID, SELFPAY | END 2023-11-25 23:59 | LOC: LAB.DROPOF 12-03 10:33 | PROVIDERS: PCP Internal Medicine; Visit Provider Internal Medicine | DX: Z51.81 Encounter for therapeutic drug level monitoring (principal); Z79.01 Long term (current) use of anticoagulants; Z95.2 Presence of prosthetic heart valve | CPT/HCPCS: 99211; G0463 ==

== ENCOUNTER 2023-11-27 16:00 | Inpatient (IN) | payer MEDICARE, MEDICAID, SELFPAY ==
--- NOTE | 2023-11-25 16:18 | XR_ITS ---
PROCEDURE INFORMATION: Exam: XR Chest Exam date and time: 11/25/2023 5:22 PM Age: 58 years old Clinical indication: Cardiovascular condition or disease; Congestive heart failure (chf); Cause unknown TECHNIQUE: Imaging protocol: Radiologic exam of the chest. Views: 2 views. COMPARISON: CT CHEST WO CON 11/18/2023 12:06 PM FINDINGS: Tubes, catheters and devices: Right chest port catheter with tip terminating over the lower SVC. Lungs: Prominent perihilar opacities. Right basilar atelectasis. Pleural spaces: Small to moderate right and small left pleural effusions. Heart/Mediastinum: Cardiomegaly. Mitral annular ring. Bones/joints: Median sternotomy. IMPRESSION: 1. Prominent perihilar opacities likely representing pulmonary edema. Right basilar atelectasis. 2. Small to moderate right and small left pleural effusions. 3. Cardiomegaly.
--- NOTE | 2023-11-25 16:50 | P.PN_ITS ---
Subjective Subjective Date: 11/25/23 Time: 16:50 Principal diagnosis: CHF Interval history: Seen in office today and admitted for CHF. Today's office note. Pt here for follow up after CHUCHO and [facility] stay CHUCHO report: COMPLICATION NOTE Post-CHUCHO care + Esophageal Perforation (complication): The patient underwent CHUCHO today to evaluate the MVR in the setting of ongoing symptoms of fatigue, dyspnea, and intermittent chest pains. Pre-op labs showed subtherapeutic INR=1.4. Before the procedure, we discussed with the patient the need to start Lovenox bridging post-procedure until INR is therapeutic. The intraprocedural course was overall uncomplicated. The LVEF was noted to be reduced, MVR appears well-positioned with good disc mobility. Severe TR present. At the end of the procedure, the endoscopy was noted to be blood-tinged. Post-procedure, the patient woke up in stable condition. Over the course of the next 1 hr after the procedure, she continued to have persistent throat pain , intermittent cough, and blood-tinged sputum. Eventually, we ordered stat CT neck/chest to evaluate for esophageal perforation in the setting of recent endoscopic procedure. The CT confirmed the presence of esophageal perforation with air leak in the mediastinum (without hematoma). Subsequently, she was ordered to remain NPO and was started on IV empiric ABX for GI coverage with Zosyn. She was also started on PPI IV, and pain management with morphine and NSAIDs. The decision was made not to immediately place nasogastric tube to until she is transferred into another center with thoracic sugery back-up (as this may result in further perforation/complication). Simultaneously, I called Dr. Arrieta at [facility] who kindly promptly accepted the transfer request. I updated the patient and her daughter, Urszula, with the above results and the need to transfer to a facility with surgical back-up. She was agreeable with the plan and appreciative of the care. The patient eventually trasnferred out of our hospital in stable condition at approximately 15:00 (vital signs throughout: HR 70s in AFib, BP 110s/70s). Normal cors 2017. Pt complains of Chest pain and pressure across the chest; stays constant most of the day; radiates into both shoulders/neck; 6/10 Pt complains of SOB with and without activity Pt complains of Swelling throughout the body Pt complains of Dizziness/Lightheadedness Pt complains of Numbness/Tingling in both hands Pt complains of Fatigue BP stable. weight is 221lbs; 14lbs more than last visit HFrEF-EF. with acute on chronic exacerbation -Echocardiogram recently showed EF 25 to 30% (further reduced compared to February 11 study). Severe biatrial dilatation. Moderate to severe TR with RVSP 40-45 mmHg. Mechanical MV R functioning appropriate. CHUCHO showed: The LVEF was noted to be reduced, MVR appears well-positioned with good disc mobility. Severe TR present -CardioMEMS in place but we have not been receiving information since 2020. Will try to get this reconnected as outpatient. Mechanical mitral valve -Functioning appropriately -Continue Coumadin therapy Chronic kidney disease, stable -Creatinine 1.20 on 11/18/2023 Autoimmune hemolytic anemia -Continue to monitor and transfuse if needed for hemoglobin less than 9 -Followed by Hematology as outpatient Chronic atrial fibrillation -Continue Coumadin therapy -Continue metoprolol therapy for rate control Diabetes mellitus,stable. COPD exacerbation with possible infiltrates EKG is Accelerated junctional rhythm with frequent PVC's, fusion complexes, RAD, low voltage QRS, septal infarct, age undetermined, rate is 93 bpm. Due to acute CHF with hypoxia will get her admitted for IV diuresis. RTC after hospital stay. This document was scribed by Mesha Deshpande, RN, BSN for Neil Caldwell MD. 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 check labs and CXR. Coumadin per Pharmacy
[2023-11-25 17:00] VITALS: BMI 37.4
[2023-11-25] MEDS: WARFARIN 2MG TABLET 2 MG PO (17:31)
[2023-11-25] MEDS: SODIUM CHLORIDE 0.9% IV (17:31)
[2023-11-25] MEDS: BUMETANIDE 1MG/4ML VIAL 2 MG IV (17:31)
[2023-11-25] MEDS: BUMETANIDE IV (17:31)
[2023-11-25 17:36] LABS: Chloride 103 mmol/L (98-107); Potassium 3.4 mmoL/L (3.5-5.1); Sodium 139 mmol/L (136-145)
[2023-11-25 17:39] LABS: Alanine Aminotransferase 19 U/L (12-78); Albumin Level 3.8 g/dl (3.5-5.0); Albumin/Globulin Ratio 1.5 (1.1-1.8); Alkaline Phosphatase 88 U/L (38-126); Anion Gap 10.4 mEq/L (5-15); Aspartate Amino Transferase 27 U/L (14-36); Bilirubin,Total 0.5 mg/dl (0.2-1.3); Blood Urea Nitrogen 15 mg/dl (7-17); Calcium 8.6 mg/dl (8.4-10.2); Carbon Dioxide 29 mmol/L (22.0-30.0); Creatinine Clearance Estimated 85 mL/min (50-200); Estimated Glomerular Filt Rate 51 ml/min (>60); GFR (African American) 61 ML/MIN (>60); Globulin 2.6 g/dL (1.3-3.2); Glucose 191 mg/dl (74-100); Total Protein,Serum 6.4 g/dl (6.3-8.2)
[2023-11-25 17:48] LABS: NT Pro Brain Natriuretic Pep. 3050 pg/mL (0-125)
--- NOTE | 2023-11-25 17:52 | P.HP_ITS ---
History of Present Illness *Admission Date: 11/25/23 *Reason for visit:: weight gain *History of present illness: Hyperlipidemia patient is a 58-year-old female with past medical history of CHF and atrial fibrillation on Coumadin, COPD, diabetes mellitus, hypertension hyperlipidemia CKD stage IV who presented to hospital from cardiology office due to weight gain bilateral lower extremity swelling. Patient mentions she has been having shortness of breath bilateral lower extremity swelling, she gained around 20 pounds in weight. She was not hospital directly from cardiology office. Patient denies fever chills diarrhea constipation dysuria. [facility] Disclaimer: The information contained in this section may have been updated after the patient was seen, as this information can be updated by other users. Medical History Afib Afib Anemia acute on chronic Anemia Arrhythmia Arrhythmia Arthritis Arthritis Autoimmune hemolytic anemia Blood transfusion reaction Blood transfusion reaction CAD (coronary artery disease) Cancer Cardiomyopathy Cardiomyopathy CHF (congestive heart failure) CHF (congestive heart failure) CKD (chronic kidney disease) Congestive heart failure, NYHA class III COPD (chronic obstructive pulmonary disease) COPD (chronic obstructive pulmonary disease) Coronary artery disease Diabetes mellitus DM type 2 (diabetes mellitus, type 2) DVT (deep venous thrombosis) DVT (deep venous thrombosis) Dyspnea GERD (gastroesophageal reflux disease) GERD (gastroesophageal reflux disease) Hernia HLD (hyperlipidemia) HLD (hyperlipidemia) HLD (hyperlipidemia) HTN (hypertension) Hyperlipidemia Hypertension Hypothyroidism Hypothyroidism Liver disease Liver disease NYHA class 3 acute on chronic systolic heart failure Polyarthralgia Pulmonary edema Rheumatic heart disease Rib fracture Sinus problem Sinus problem Systolic CHF Thyroid disease Typical angina Valvular heart disease Surgical History H/O tubal ligation History of angioplasty History of cardiac cath History of cardiac catheterization History of colon resection History of colon resection History of hernia repair History of renal stent History of renal stent History of tubal ligation History of ureteroscopy Mitral valve replaced Family History Other COPD (chronic obstructive pulmonary disease) Hypertension Social History Smoking Status: Former smoker tobacco type: cigarettes packs per day: 1 smoking status stop date: 01/09/2006 quit status: quit date established second hand exposure: Yes alcohol intake: never substance use type: denies use current occupational status: retired and disabled Travel in the last 8 weeks: None adopted: No caregiver/support person: No foster care: No household members: significant other housing: house lives independently: Yes marital status: life partner education level: college service: No custodial: No current occupational exposures/hazards: No sexually active: Yes how many partners: 1 are you practicing safe sex: Yes diet: diabetic well-balanced diet: about half the time caffeine: No eating out: rarely or never during the past year weight has: remained stable bhavya/protestant: Confucianist special bhavya needs: No agree to transfusion: Yes helmet use: No water heater temp set < 120 deg: Yes working smoke detector in home: Yes fire extinguisher in home: Yes carbon monox detector in home: Yes firearms in home: No do you feel safe at home: Yes victim of physical abuse: No victim of emotional abuse: No victim of sexual abuse: No would you like helpful sources: No Review of Systems Review of Systems Review of systems (narrative): as per [facility] Meds Home Medications and Allergies Home Medications Medication Instructions Recorded Confirmed Type aspirin 81 mg tablet,delayed 81 mg PO DAILY circulation 12/01/17 11/25/23 History release (Adult Low Dose Aspirin) oxycodone-acetaminophen 10 mg-325 1 tab PO TIDP PRN Moderate Pain 05/23/18 11/25/23 History mg tablet (Percocet) alprazolam 0.5 mg tablet (Xanax) 0.5 mg PO TID Anxiety 11/29/19 11/25/23 History citalopram 40 mg tablet 40 mg PO DAILY Depression 03/31/21 11/25/23 History levothyroxine 25 mcg tablet 25 mcg PO DAILYDM hypothyroidism 06/05/21 11/25/23 History insulin glargine 100 60 units SQ DAILY Diabetes 02/22/22 11/25/23 History unit-lixisenatide 33 mcg/mL subcutaneous pen febuxostat 40 mg tablet 40 mg PO DAILY gout 02/09/23 11/25/23 History omeprazole 40 mg capsule,delayed 40 mg PO BID GERD 02/23/23 11/25/23 History release potassium chloride 20 mEq 20 meq PO BID Supplement 04/15/23 11/25/23 History tablet,extended release(part/cryst) metoprolol succinate 200 mg 200 mg PO DAILY blood pressure #30 06/28/23 11/25/23 Rx tablet,extended release 24 hr tabs spironolactone 25 mg tablet 25 mg PO BID blood pressure 08/26/23 11/25/23 History Lactobacills gasseri-Bifidobac 1 cap PO DAILY PROBIOTIC 10/30/23 11/25/23 History bifidum,longum 1.5 billion cell capsule (Probiotic Colon Support) bisacodyl 5 mg tablet,delayed 5 mg PO HS Constipation 10/30/23 11/25/23 History release (Gentle Laxative (bisacodyl)) calcitriol 0.25 mcg capsule 0.25 mcg PO DAILY HYPOCALCIUM 10/30/23 11/25/23 History colchicine 0.6 mg capsule 0.6 mg PO DAILYP PRN gout 10/30/23 11/25/23 History (Mitigare) warfarin 4 mg tablet 4 mg PO SUTUTHSA mechanical 10/31/23 11/25/23 History valve/blood thinner benzonatate 100 mg capsule 100 mg PO Q4HP PRN Cough 5 days 11/03/23 11/25/23 Rx #30 caps enoxaparin 100 mg/mL subcutaneous 90 mg (0.9 mL) SQ Q12H Therapeutic 11/18/23 11/25/23 Rx syringe (Lovenox) INR 8 days #14.4 mL bumetanide 1 mg tablet 1 mg PO BID Fluid #60 tabs 11/25/23 11/25/23 Rx warfarin 4 mg tablet 2 mg PO MOWEFR BLOOD THINNER, 11/25/23 11/25/23 History MECHANICAL VALVE New Prescriptions to Start Prescriptions: Allergies Allergy/AdvReac Type Severity Reaction Status Date / Time codeine [CODEINE] Allergy Unknown nausea, Verified 11/25/23 14:49 swelling Corticosteroids Allergy Unknown Verified 11/25/23 14:49 (Glucocorticoids) [CORTICOSTEROIDS (GLUCOCORTICOIDS)] rosuvastatin [From CRESTOR] Allergy Unknown Verified 11/25/23 14:49 theophylline [From DAVID-DUR] Allergy Unknown Verified 11/25/23 14:49 Iodinated Contrast Media AdvReac Severe shuts Verified 11/25/23 14:49 [IODINATED CONTRAST- ORAL kidneys AND IV DYE] down and bleeding buprenorphine [From BUPRENEX] AdvReac Intermediate Nausea Verified 11/25/23 14:49 prednisone AdvReac Verified 11/25/23 14:49 entresto AdvReac Intermediate hypotension Uncoded 11/25/23 14:49 lisinopril AdvReac Mild cough Uncoded 11/25/23 14:49 Exam Data for Last 24 hours Vital signs and Labs for Last 24 Hours: Laboratory Results - last 24 hr 11/25/23 15:37: INR (Fingerstick) 3.0 H 11/25/23 17:15: Sodium 139, Potassium 3.4 L, Chloride 103, Carbon Dioxide 29, Anion Gap 10.4, BUN 15, Creatinine 1.10 H, Estimated Creat Clear 85, Estimated GFR 51 L, Est GFR ( Amer) 61, Glucose 191 H, Calcium 8.6, Total Bilirubin 0.5, AST 27, ALT 19, Alkaline Phosphatase 88, NT-Pro-B Natriuret Pep 3050 H, Total Protein 6.4, Albumin 3.8, Globulin 2.6, Albumin/Globulin Ratio 1.5 I & O for Last 24 hours: Intake & Output 11/22/23 11/23/23 11/24/23 11/25/23 23:59 23:59 23:59 23:59 Weight 98.883 kg Constitutional Constitutional: no acute distress *Routine HEENT Exam Head: Present normocephalic Eye: Present EOMI and PERRL ENT: Present mucous membranes moist *Routine Neck Exam Neck: Present supple; Absent lymphadenopathy *Routine Respiratory Exam Respiratory: Present CTA bilaterally *Routine Cardiovascular Exam Cardiovascular: Present RRR *Routine Abdominal Exam Abdominal: Present soft and normoactive bowel sounds; Absent tenderness *Routine Rectal Exam Rectal:: deferred *Routine Genitalia Exam Genitalia:: deferred *Routine Extremities Exam Extremities: Present edema; Absent cyanosis or clubbing Comments: has b/l LE edema *Routine Skin Exam Skin: Present warm; Absent rash *Routine Neurological Exam Neurological: Present alert and oriented X3 Assessment and Plan *Assessment and plan (1) CHF exacerbation: Status: Acute Qualifiers: Heart failure type: unspecified Qualified Code(s): I50.9 - Heart failure, unspecified Category: Medical Code(s): I50.9 - Heart failure, unspecified (2) Atrial fibrillation, chronic: Status: Acute Category: Medical Code(s): I48.20 - Chronic atrial fibrillation, unspecified (3) CKD (chronic kidney disease): Status: Acute Qualifiers: Chronic kidney disease stage: stage 3 (moderate) Chronic kidney disease stage 3 subtype: stage 3b (GFR 30-44) Qualified Code(s): N18.32 - Chronic kidney disease, stage 3b Category: Medical Code(s): N18.9 - Chronic kidney disease, unspecified (4) Diastolic heart failure: Status: Chronic Qualifiers: Heart failure chronicity: acute on chronic Qualified Code(s): I50.33 - Acute on chronic diastolic (congestive) heart failure Category: Medical Code(s): I50.30 - Unspecified diastolic (congestive) heart failure (5) Hyperlipidemia: Status: Chronic Qualifiers: Hyperlipidemia type: mixed hyperlipidemia Qualified Code(s): E78.2 - Mixed hyperlipidemia Category: Medical Code(s): E78.5 - Hyperlipidemia, unspecified (6) Diabetes mellitus: Status: Chronic Qualifiers: Diabetes mellitus complication status: without complication Diabetes mellitus type: type 1 Qualified Code(s): E10.9 - Type 1 diabetes mellitus without complications Category: Medical Code(s): E11.9 - Type 2 diabetes mellitus without complications Plan Hyperlipidemia patient is a 58-year-old female with past medical history of CHF and atrial fibrillation on Coumadin, COPD, diabetes mellitus, hypertension hyperlipidemia CKD stage IV who presented to hospital from cardiology office due to weight gain bilateral lower extremity swelling. Patient mentions she has been having shortness of breath bilateral lower extremity swelling, she gained around 20 pounds in weight. She was not hospital directly from cardiology office. Patient denies fever chills diarrhea constipation dysuria. Assessment Acute on chronic CHF Diabetes mellitus Atrial fibrillation on warfarin COPD Hypertension Hyperlipidemia CKD stage IV Plan Start IV Bumex Strict I's and O's Low-salt diet Insulin sliding scale Monitor and replace electrolytes Order chest x-ray Resume home medications including aspirin, warfarin DVT prophylaxis-on warfarin
[2023-11-25 18:00] VITALS: BMI 37.4
[2023-11-25 18:10] LABS: Basophils % 0.3 % (0.1-2.0); Eosinophils # 0.2 K/mm3 (0.0-0.4); Eosinophils % 3.2 % (0.1-12.0); Hematocrit 34.3 % (37.0-47.0); Hemoglobin 10.6 g/dL (12.2-16.2); Lymphocytes # 0.4 K/mm3 (0.7-4.5); Lymphocytes % 7.2 % (10-50); Mean Corpuscular HGB Conc 30.8 g/dL (31.8-35.4); Mean Corpuscular Hemoglobin 28.1 pg (27.0-31.2); Mean Corpuscular Volume 91.3 fl (81-99); Mean Platelet Volume 8.7 fl (7.4-10.4); Monocytes # 0.4 K/mm3 (0.1-1.0); Neutrophils # 4.1 K/mm3 (1.8-7.8); Neutrophils % 82.3 % (37.0-80.0); Platelet Count 162 K/mm3 (142-424); Red Blood Count 3.76 M/mm3 (4.20-5.40); White Blood Count 4.9 K/mm3 (4.8-10.8)
[2023-11-25] MEDS: OXYCODONE 10MG W/APAP 325MG TABLET 1 EACH PO (18:31)
[2023-11-25 19:34] LABS: Magnesium 1.5 mg/dl (1.6-2.3)
--- NOTE | 2023-11-25 19:38 | PC.NURSE ---
Dr Connor called re consult request. Request is for coumadin dosing. Aly/Sandra pharmacist called re consult on coumadin at 1939.
[2023-11-25 20:00] VITALS: BP 148/94; PULSE 86; PULSE 88; RESP 18; TEMP 36.8; O2SAT 98
[2023-11-25 20:12] LABS: POC Glucose,Bedside 227 (70-110)
[2023-11-25] MEDS: humaLOG 100 UNITS/ML 3ML VIAL (SSI) SQ (20:56)
[2023-11-25] MEDS: METOPROLOL SUCCINATE 200 MG 200 EACH PO (20:57)
[2023-11-25] MEDS: ALPRAZolam 0.5MG TABLET 0.5 MG PO (20:57)
[2023-11-26] VITALS: BP 145/93; PULSE 86; PULSE 92; RESP 16; TEMP 36.5; O2SAT 98
[2023-11-26] MEDS: OXYCODONE 10MG W/APAP 325MG TABLET 1 EACH PO ×2 (03:10→21:37)
[2023-11-26 04:00] VITALS: BP 147/77; PULSE 84; RESP 16; TEMP 36.7; O2SAT 97; BMI 37.2
--- NOTE | 2023-11-26 06:00 | XR_ITS ---
PROCEDURE INFORMATION: Exam: XR Chest Exam date and time: 11/26/2023 5:54 AM Age: 58 years old Clinical indication: Shortness of breath; Additional info: Follow pleural effusion. Chf TECHNIQUE: Imaging protocol: Radiologic exam of the chest. Views: 1 view. COMPARISON: CR XR CHEST 2V 11/25/2023 5:22 PM FINDINGS: Tubes, catheters and devices: There is a right-sided chest port terminating just above the cavoatrial junction unchanged. Lungs: Interval clearing of pulmonary vascular congestion and improving pleural effusions likely reflecting improving CHF. Pleural spaces: No pneumothorax. Heart/Mediastinum: Heart is markedly enlarged, unchanged. Evidence of prior mitral valve repair. Pulmonary vascular distribution indicating elevated central venous pressure unchanged. Bones/joints: Unremarkable for age. IMPRESSION: Marked cardiomegaly with elevated central venous pressure and improving CHF pattern.
[2023-11-26] MEDS: LEVOTHYROXINE 25MCG (0.025MG) TAB 25 MCG PO (06:17)
[2023-11-26] MEDS: humaLOG 100 UNITS/ML 3ML VIAL (SSI) SQ ×4 (06:17→21:38)
[2023-11-26 06:21] LABS: POC Glucose,Bedside 193 (70-110)
[2023-11-26 07:03] LABS: Blood Urea Nitrogen 13 mg/dl (7-17); Calcium 8.8 mg/dl (8.4-10.2); Carbon Dioxide 33 mmol/L (22.0-30.0); Chloride 98 mmol/L (98-107); Creatinine Clearance Estimated 93 mL/min (50-200); Estimated Glomerular Filt Rate 57 ml/min (>60); GFR (African American) 68 ML/MIN (>60); Glucose 190 mg/dl (74-100); Sodium 137 mmol/L (136-145)
[2023-11-26 07:11] LABS: Anion Gap 9.3 mEq/L (5-15); Potassium 3.3 mmoL/L (3.5-5.1)
[2023-11-26 07:21] LABS: INR 3.36 (0.9-1.1); Prothrombin Time 33.5 seconds (10.1-12.5)
[2023-11-26 08:00] VITALS: BP 150/81; PULSE 100; RESP 18; TEMP 36.4; O2SAT 94; O2SAT 96
[2023-11-26] MEDS: ALPRAZolam 0.5MG TABLET 0.5 MG PO ×3 (08:56→21:37)
[2023-11-26] MEDS: ASPIRIN EC 81MG TABLET 81 MG PO (08:57)
[2023-11-26] MEDS: METOPROLOL SUCCINATE XL 100MG TABLET 100 MG PO ×2 (08:57→21:37)
--- NOTE | 2023-11-26 09:11 | HMH.PHAINT1 ---
Pharmacy Intervention Comments: Home med list verified with patient at bedside and with external pharmacy list.
--- NOTE | 2023-11-26 09:12 | XR_ITS ---
FINAL REPORT CLINICAL HISTORY: Right upper arm pain COMPARISON: None FINDINGS: Two views of the right humerus were obtained. There is no acute fracture or dislocation. The joint spaces are well preserved. There is no acute soft tissue abnormality. IMPRESSION: No acute abnormality identified. Reviewed, Interpreted and Dictated by Pravin Crespo III, MD Transcribed by Purvi Wang Authenticated and [facility]
--- NOTE | 2023-11-26 09:12 | XR_ITS ---
FINAL REPORT CLINICAL HISTORY: Right shoulder pain COMPARISON: None FINDINGS: 1 view of the right shoulder was obtained. There is no acute fracture or dislocation. The joint spaces are well preserved. There is no acute soft tissue abnormality. IMPRESSION: No acute abnormality identified. Reviewed, Interpreted and Dictated by Pravin Crespo III, MD Transcribed by Purvi Wang Authenticated and [facility]
[2023-11-26] MEDS: WARFARIN 2MG TABLET 2 MG PO (11:34)
[2023-11-26 11:41] LABS: POC Glucose,Bedside 190 (70-110)
--- NOTE | 2023-11-26 11:59 | P.PN_ITS ---
Subjective Subjective Date: 11/26/23 Time: 11:59 Principal diagnosis: CHF Interval history: 58-year-old white female in bed. Slightly groggy from pain medication due to right arm discomfort after having contrast injected for a test at the [facility] recently. She denies any numbness or tingling in the fingers. Humerus and shoulder x-ray today showed no acute abnormalities. Patient is unable to take NSAIDs due to history of CHF. She did have a good diuresis of over 2 L last evening on the Bumex. She states her breathing has improved. Chest x-ray shows improving edema. Renal functions are normal. Exam Data for Last 24 hours Vital signs and Labs for Last 24 Hours: Temp Pulse Resp BP Pulse Ox O2 Del Method O2 Flow Rate 97.6 F 100 H 18 150/81 H 96 Nasal Cannula 2 11/26/23 08:00 11/26/23 08:00 11/26/23 08:00 11/26/23 08:00 11/26/23 08:00 11/26/23 10:50 11/26/23 10:50 Laboratory Results - last 24 hr 11/25/23 15:37: INR (Fingerstick) 3.0 H 11/25/23 17:15: WBC 4.9, RBC 3.76 L, Hgb 10.6 L, Hct 34.3 L, MCV 91.3, MCH 28.1, MCHC 30.8 L, RDW 19.0 H, Plt Count 162, MPV 8.7, Neut % (Auto) 82.3 H, Lymph % (Auto) 7.2 L, [place] % (Auto) 7.0, Eos % (Auto) 3.2, Baso % (Auto) 0.3, Neut # (Auto) 4.1, Lymph # (Auto) 0.4 L, [place] # (Auto) 0.4, Eos # (Auto) 0.2, Baso # (Auto) 0.0, Sodium 139, Potassium 3.4 L, Chloride 103, Carbon Dioxide 29, Anion Gap 10.4, BUN 15, Creatinine 1.10 H, Estimated Creat Clear 85, Estimated GFR 51 L, Est GFR ( Amer) 61, Glucose 191 H, Calcium 8.6, Magnesium 1.5 L, Total Bilirubin 0.5, AST 27, ALT 19, Alkaline Phosphatase 88, NT-Pro-B Natriuret Pep 3050 H, Total Protein 6.4, Albumin 3.8, Globulin 2.6, Albumin/Globulin Ratio 1.5 11/25/23 20:05: POC Glucose 227 H 11/26/23 05:59: POC Glucose 193 H 11/26/23 06:24: PT 33.5 H, INR 3.36 H, Sodium 137, Potassium 3.3 L, Chloride 98, Carbon Dioxide 33 H, Anion Gap 9.3, BUN 13, Creatinine 1.00, Estimated Creat Clear 93, Estimated GFR 57 L, Est GFR ( Amer) 68, Glucose 190 H, Calcium 8.8 11/26/23 11:33: POC Glucose 190 H I & O for Last 24 hours: Intake & Output 11/23/23 11/24/23 11/25/23 11/26/23 11:59 11:59 11:59 11:59 Intake Total 693 / 693 Output Total 3050 / 3050 Balance -2357 / -2357 Weight 218 lb 3.2 oz Constitutional Constitutional: no acute distress *Routine Respiratory Exam Respiratory: Present crackles *Routine Cardiovascular Exam Cardiovascular: Present RRR and click *Routine Extremities Exam Extremities: Present edema Comments: Patient is able to move fingers on the right hand. She has a good radial pulse. No discoloration noted in the hand. She does have bruising from previous IV sites on her right forearm. Progress Note: A&P Assessment and plan (1) CHF exacerbation: Status: Acute (2) Atrial fibrillation, chronic: Status: Acute (3) CKD (chronic kidney disease): Status: Acute (4) Diastolic heart failure: Status: Chronic (5) Hyperlipidemia: Status: Chronic (6) Diabetes mellitus: Status: Chronic Assessment and Plan Assessment and Plan for All Diagnoses:: 1. CHF exacerbation -Continue IV Bumex with goal of additional 2 L urine output in the next 24 hours 2. Hypokalemia -Replacement has been ordered 3. Hypomagnesemia -Replacement has been ordered 4. Chronic atrial fibrillation -Chronic Coumadin therapy 5. Mechanical mitral valve , Chronic Coumadin therapy If continues to have good urine output overnight and clinically improved, then could be discharged home tomorrow to resume home meds/diuretic meds and dosing. Recommend follow up in our office in 2 wks.
[2023-11-26 12:00] VITALS: BP 140/74; PULSE 100; PULSE 103; RESP 20; TEMP 36.6; O2SAT 95
[2023-11-26] MEDS: POTASSIUM CHLORIDE 20MEQ TAB 20 MEQ PO ×3 (12:46→21:37)
[2023-11-26] MEDS: MAGNESIUM SULFATE IN WATER 2 GM/50 ML PIGGYBACK IV (12:46)
[2023-11-26 13:18] VITALS: BMI 37.2
--- NOTE | 2023-11-26 14:25 | P.PN_ITS ---
Subjective *Date: 11/26/23 *Time: 14:25 Interval history: Patient was seen and evaluated at the bedside. reprots SOb and R arm pain, No reported acute events overnight, denies chest pain, nausea, vomiting, abdominal pain. Exam Data for Last 24 hours Vital signs and Labs for Last 24 Hours: Temp Pulse Resp BP Pulse Ox O2 Del Method O2 Flow Rate 97.9 F 103 H 20 140/74 95 Nasal Cannula 2 11/26/23 12:00 11/26/23 12:00 11/26/23 12:00 11/26/23 12:00 11/26/23 12:00 11/26/23 12:53 11/26/23 12:53 Laboratory Results - last 24 hr 11/25/23 15:37: INR (Fingerstick) 3.0 H 11/25/23 17:15: WBC 4.9, RBC 3.76 L, Hgb 10.6 L, Hct 34.3 L, MCV 91.3, MCH 28.1, MCHC 30.8 L, RDW 19.0 H, Plt Count 162, MPV 8.7, Neut % (Auto) 82.3 H, Lymph % (Auto) 7.2 L, [place] % (Auto) 7.0, Eos % (Auto) 3.2, Baso % (Auto) 0.3, Neut # (Auto) 4.1, Lymph # (Auto) 0.4 L, [place] # (Auto) 0.4, Eos # (Auto) 0.2, Baso # (Auto) 0.0, Sodium 139, Potassium 3.4 L, Chloride 103, Carbon Dioxide 29, Anion Gap 10.4, BUN 15, Creatinine 1.10 H, Estimated Creat Clear 85, Estimated GFR 51 L, Est GFR ( Amer) 61, Glucose 191 H, Calcium 8.6, Magnesium 1.5 L, Total Bilirubin 0.5, AST 27, ALT 19, Alkaline Phosphatase 88, NT-Pro-B Natriuret Pep 3050 H, Total Protein 6.4, Albumin 3.8, Globulin 2.6, Albumin/Globulin Ratio 1.5 11/25/23 20:05: POC Glucose 227 H 11/26/23 05:59: POC Glucose 193 H 11/26/23 06:24: PT 33.5 H, INR 3.36 H, Sodium 137, Potassium 3.3 L, Chloride 98, Carbon Dioxide 33 H, Anion Gap 9.3, BUN 13, Creatinine 1.00, Estimated Creat Clear 93, Estimated GFR 57 L, Est GFR ( Amer) 68, Glucose 190 H, Calcium 8.8 11/26/23 11:33: POC Glucose 190 H I & O for Last 24 hours: Intake & Output 11/23/23 11/24/23 11/25/23 11/26/23 23:59 23:59 23:59 23:59 Intake Total 813 / 813 Output Total 1500 / 1500 1750 / 1750 Balance -1500 / -1260 -937 / -937 Weight 98.997 kg 98.97 kg Constitutional Constitutional: no acute distress *Routine HEENT Exam Head: Present normocephalic Eye: Present EOMI and PERRL ENT: Present mucous membranes moist *Routine Neck Exam Neck: Present supple; Absent lymphadenopathy *Routine Respiratory Exam Respiratory: Present CTA bilaterally *Routine Cardiovascular Exam Cardiovascular: Present RRR *Routine Abdominal Exam Abdominal: Present soft and normoactive bowel sounds; Absent tenderness *Routine Extremities Exam Extremities: Present edema; Absent cyanosis or clubbing *Routine Skin Exam Skin: Present warm; Absent rash *Routine Neurological Exam Neurological: Present alert and oriented X3 Assessment and Plan *Assessment and plan (1) CHF exacerbation: Status: Acute Qualifiers: Heart failure type: unspecified Qualified Code(s): I50.9 - Heart failure, unspecified Category: Medical Code(s): I50.9 - Heart failure, unspecified (2) Atrial fibrillation, chronic: Status: Acute Category: Medical Code(s): I48.20 - Chronic atrial fibrillation, unspecified (3) CKD (chronic kidney disease): Status: Acute Qualifiers: Chronic kidney disease stage: stage 3 (moderate) Chronic kidney disease stage 3 subtype: stage 3b (GFR 30-44) Qualified Code(s): N18.32 - Chronic kidney disease, stage 3b Category: Medical Code(s): N18.9 - Chronic kidney disease, unspecified (4) Diastolic heart failure: Status: Chronic Qualifiers: Heart failure chronicity: acute on chronic Qualified Code(s): I50.33 - Acute on chronic diastolic (congestive) heart failure Category: Medical Code(s): I50.30 - Unspecified diastolic (congestive) heart failure (5) Hyperlipidemia: Status: Chronic Qualifiers: Hyperlipidemia type: mixed hyperlipidemia Qualified Code(s): E78.2 - Mixed hyperlipidemia Category: Medical Code(s): E78.5 - Hyperlipidemia, unspecified (6) Diabetes mellitus: Status: Chronic Qualifiers: Diabetes mellitus complication status: without complication Diabetes mellitus type: type 1 Qualified Code(s): E10.9 - Type 1 diabetes mellitus without complications Category: Medical Code(s): E11.9 - Type 2 diabetes mellitus without complications Plan Patient is a 58-year-old female with past medical history of CHF and atrial fibrillation on Coumadin, COPD, diabetes mellitus, hypertension hyperlipidemia CKD stage IV who presented to hospital from cardiology office due to weight gain bilateral lower extremity swelling. Patient mentions she has been having shortness of breath bilateral lower extremity swelling, she gained around 20 pounds in weight. She was not hospital directly from cardiology office. Patient denies fever chills diarrhea constipation dysuria. Assessment Acute on chronic CHF Diabetes mellitus Atrial fibrillation on warfarin COPD Hypertension Hyperlipidemia CKD stage IV Plan continue IV Bumex Strict I's and O's Low-salt diet Insulin sliding scale Monitor and replace electrolytes Order chest x-ray Resume home medications including aspirin, warfarin ( managed by pharmacy) DVT prophylaxis-on warfarin
[2023-11-26 16:00] VITALS: BP 141/83; PULSE 95; RESP 16; TEMP 36.7; O2SAT 95
[2023-11-26 16:51] LABS: POC Glucose,Bedside 198 (70-110)
[2023-11-26] MEDS: SODIUM CHLORIDE 0.9% IV (17:08)
[2023-11-26] MEDS: BUMETANIDE IV (17:08)
[2023-11-26 20:00] VITALS: BP 154/80; PULSE 100; PULSE 98; RESP 18; TEMP 36.6; O2SAT 94
[2023-11-26] MEDS: PANTOPRAZOLE 40MG TABLET 40 MG PO (21:37)
[2023-11-26] MEDS: INSULIN GLARGINE 100 UNITS/ML 3ML FLEXPEN 60 UNIT SQ (21:37)
[2023-11-26 22:29] LABS: POC Glucose,Bedside 260 (70-110)
[2023-11-27] VITALS (10 sets, daily range): BP systolic 142–151; BP diastolic 77–88; PULSE 76–103; RESP 17–18; TEMP 36.5–36.8; O2SAT 90–97; BMI 36.1
--- NOTE | 2023-11-27 05:29 | PC.NURSE ---
Patient has had a decent night. Has been able to rest some. Was incontinent a couple times through the shift. With a large Void requiring to changed the bed sheets. Patient did get washed up at the sink after having a BM. Patient remains on the Bumex drip and on 3 L NC lung sounds still sound diminished
[2023-11-27] MEDS: LEVOTHYROXINE 25MCG (0.025MG) TAB 25 MCG PO (06:16)
[2023-11-27 06:19] LABS: POC Glucose,Bedside 132 (70-110)
[2023-11-27 07:07] LABS: INR 3.03 (0.9-1.1); Prothrombin Time 30.4 seconds (10.1-12.5)
[2023-11-27] MEDS: ALPRAZolam 0.5MG TABLET 0.5 MG PO ×3 (09:00→21:17)
[2023-11-27] MEDS: ASPIRIN EC 81MG TABLET 81 MG PO (09:00)
[2023-11-27] MEDS: POTASSIUM CHLORIDE 20MEQ TAB 20 MEQ PO ×4 (09:01→21:17)
[2023-11-27] MEDS: CITALOPRAM 40MG TABLET 40 MG PO (09:01)
[2023-11-27] MEDS: METOPROLOL SUCCINATE XL 100MG TABLET 100 MG PO ×2 (09:01→21:17)
[2023-11-27] MEDS: WARFARIN 2MG TABLET 4 MG PO (11:32)
[2023-11-27] MEDS: humaLOG 100 UNITS/ML 3ML VIAL (SSI) SQ ×3 (11:32→21:18)
[2023-11-27 11:59] LABS: POC Glucose,Bedside 228 (70-110)
--- NOTE | 2023-11-27 15:33 | PC.NURSE ---
pt has had multiple incontinent episodes. She has received a bath from nursing. Bumex drip discontinued. PT in room now
--- NOTE | 2023-11-27 16:02 | EXP.PN ---
Subjective *Date: 11/27/23 *Time: 16:02 Interval history: Patient was seen and evaluated at the bedside. reprots SOB but better and R arm pain, No reported acute events overnight, denies chest pain, nausea, vomiting, abdominal pain. Exam Data for Last 24 hours Vital signs and Labs for Last 24 Hours: Temp Pulse Resp BP Pulse Ox O2 Del Method O2 Flow Rate 98.2 F 99 H 17 149/88 H 94 L Nasal Cannula 2 11/27/23 15:39 11/27/23 15:39 11/27/23 15:39 11/27/23 15:39 11/27/23 15:39 11/27/23 15:39 11/27/23 15:39 Laboratory Results - last 24 hr 11/26/23 16:42: POC Glucose 198 H 11/26/23 21:10: POC Glucose 260 H 11/27/23 06:13: POC Glucose 132 H 11/27/23 06:24: PT 30.4 H, INR 3.03 H 11/27/23 11:30: POC Glucose 228 H I & O for Last 24 hours: Intake & Output 11/24/23 11/25/23 11/26/23 11/27/23 23:59 23:59 23:59 23:59 Intake Total 1131.083 / 1131.083 480 / 480 Output Total 1500 / 1500 2800 / 2800 1200 / 1200 Balance -1500 / -1260 -1668.917 / -1668.917 -720 / -720 Weight 98.997 kg 98.97 kg 95.98 kg Constitutional Constitutional: no acute distress *Routine HEENT Exam Head: Present normocephalic Eye: Present EOMI and PERRL ENT: Present mucous membranes moist *Routine Neck Exam Neck: Present supple; Absent lymphadenopathy *Routine Respiratory Exam Respiratory: Present CTA bilaterally *Routine Cardiovascular Exam Cardiovascular: Present RRR *Routine Abdominal Exam Abdominal: Present soft and normoactive bowel sounds; Absent tenderness *Routine Extremities Exam Extremities: Present edema; Absent cyanosis or clubbing *Routine Skin Exam Skin: Present warm; Absent rash *Routine Neurological Exam Neurological: Present alert and oriented X3 Assessment and Plan *Assessment and plan (1) CHF exacerbation: Status: Acute Qualifiers: Heart failure type: unspecified Qualified Code(s): I50.9 - Heart failure, unspecified Category: Medical Code(s): I50.9 - Heart failure, unspecified (2) Atrial fibrillation, chronic: Status: Acute Category: Medical Code(s): I48.20 - Chronic atrial fibrillation, unspecified (3) CKD (chronic kidney disease): Status: Acute Qualifiers: Chronic kidney disease stage: stage 3 (moderate) Chronic kidney disease stage 3 subtype: stage 3b (GFR 30-44) Qualified Code(s): N18.32 - Chronic kidney disease, stage 3b Category: Medical Code(s): N18.9 - Chronic kidney disease, unspecified (4) Diastolic heart failure: Status: Chronic Qualifiers: Heart failure chronicity: acute on chronic Qualified Code(s): I50.33 - Acute on chronic diastolic (congestive) heart failure Category: Medical Code(s): I50.30 - Unspecified diastolic (congestive) heart failure (5) Hyperlipidemia: Status: Chronic Qualifiers: Hyperlipidemia type: mixed hyperlipidemia Qualified Code(s): E78.2 - Mixed hyperlipidemia Category: Medical Code(s): E78.5 - Hyperlipidemia, unspecified (6) Diabetes mellitus: Status: Chronic Qualifiers: Diabetes mellitus complication status: without complication Diabetes mellitus type: type 1 Qualified Code(s): E10.9 - Type 1 diabetes mellitus without complications Category: Medical Code(s): E11.9 - Type 2 diabetes mellitus without complications Plan Patient is a 58-year-old female with past medical history of CHF and atrial fibrillation on Coumadin, COPD, diabetes mellitus, hypertension hyperlipidemia CKD stage IV who presented to hospital from cardiology office due to weight gain bilateral lower extremity swelling. Patient mentions she has been having shortness of breath bilateral lower extremity swelling, she gained around 20 pounds in weight. She was not hospital directly from cardiology office. Patient denies fever chills diarrhea constipation dysuria. Assessment Acute on chronic CHF Diabetes mellitus Atrial fibrillation on warfarin COPD Hypertension Hyperlipidemia CKD stage IV Plan switch to PO from IV Bumex Strict I's and O's Low-salt diet Insulin sliding scale Monitor and replace electrolytes Order chest x-ray Resume home medications including aspirin, warfarin ( managed by pharmacy) DVT prophylaxis-on warfarin wean o2 as tolerated, contnue Bumex, order CXR
--- NOTE | 2023-11-27 16:04 | XR_ITS ---
PROCEDURE INFORMATION: Exam: XR Chest Exam date and time: 11/27/2023 4:23 PM Age: 58 years old Clinical indication: Shortness of breath; Additional info: SOB TECHNIQUE: Imaging protocol: Radiologic exam of the chest. Views: 1 view. Total images: 2 COMPARISON: CR XR CHEST PORTABLE 11/26/2023 5:54 AM FINDINGS: Tubes, catheters and devices: Right-sided central catheter is in place with the tip in the superior vena cava or right atrium. Lungs: Atelectatic changes noted within both lung bases. Pleural spaces: Small bilateral pleural effusions. Heart/Mediastinum: Heart demonstrates moderate diffuse enlargement. Bones/joints: There is evidence of prior median sternotomy. IMPRESSION: 1. Moderate cardiomegaly. 2. Atelectatic changes noted within both lung bases. 3. Small bilateral pleural effusions.
--- NOTE | 2023-11-27 16:10 | HMH.PTEV ---
Physical Therapy Evaluation Rehab PT IP Evaluation Start: 11/27/23 09:17 Freq: .once Status: Active Protocol: Document 11/27/23 15:50 [email or web address] (Rec: 11/27/23 16:10 [email or web address] [id number]) Subjective/History History History Pt. is a 58 year female w/ a PMH of CHF, COPD, DM, Atrial Fibrillation, Hypertension, Hyperlipidemia, and CKD stage IV who presents to [facility] Inpatient floor w/ c/o acute onset of weight gain, SOB, and BLE edema. Pt. reports gaining around 20 pounds in weight, pt. unable to vocalizes time frame for said weight gain. Pt. vocalizes having a transthoracic echocardiogram earlier this week d/t current PMH. Pt. reports she lives alone in a 1 -story home w/ a step onto the porch and a step into her house. Pt. reports having an assistance that comes every night to assist in whatever I need. Pt. 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 prior to admittance into the hospital. Pt. reports owning a FWW, but states, I don't really use it. Subjective Subjective Pt. was asleep in upright position sitting in chair adjacent to hospital bed upon entry into pt.'s room after being given the okay by pt. to enter into room. Pt. presents w/ 2 L/min O2 nasal canula at rest. Pt. presents w/ increased diuresis dripping from gown onto floor upon entry, states, it just keeps on coming out. Pt. vocalizes 6/10 soreness in BUE shldrs. at rest that jumps to a 8/10 w / activity. Pt. reports being restless during the night as explantion to drifting off during initial eval. New diagnosis of cancer in past 12 No months? Rehab PT IP Eval Objective Appearance Patient Behavior Restless,Sedated,Fatigued, Asleep Patient Orientation Person,Place,Birthday Difficulty following instructions none Speech Pattern Delayed,Soft-Spoken,Monotone, Mumbled,Difficulty Finding Words Ambulation Patient Able to Ambulate Yes Ambulation Observation IP General Gait Pattern Observation Antalgic Gait,Wide Based Gait Ambulation Distance (feet) 15 Ambulation Assistive Device Rolling Walker Ambulation Ability Contact Guard/Hand Hold Balance Ability to Arise Able, uses arms to help Sitting Balance Steady, safe Standing Balance Steady, wide stance Dynamic Sitting Balance Ability Good Dynamic Standing Balance Ability Good Transfers Bed Transfer Ability Minimal x 1 (25% assist) Chair Transfer Ability Minimal x 1 (25% assist) Sit to Stand Bed Transfer Ability Minimal x 1 (25% assist) Sit to Stand Chair Transfer Ability Minimal x 1 (25% assist) Pain Right Arm Pain Intensity 6 ROM RLE PT ROM Status WFL LLE PT ROM Status WFL MMT RLE PT MMT WFL LLE PT MMT WFL Rehab PT IP prob,goals,plan Problems Date of Evaluation: 11/27/23 PT IP Problems Bed Mobility,Transfers,Self care,Safety Rehab Potential Rehab Potential Good Equipment Needs Assistive Devices Rolling / Wheeled Walker Plan PT Intervention Plan Transfers,Gait,Self care, Safety,Therapeutic Exercise PT Plan Frequency BID Duration LOS Discharge Goals Bed Transfer Ability Contact Guard/Hand Hold Sit to Stand Chair Transfer Ability Contact Guard/Hand Hold Ambulation Assistive Device Rolling Walker Ambulation Distance (feet) 25 Discharge Plan PT Discharge Plan Upon discharge from [facility], once medically stable per MD, pt. appropriate for SNF facility to further improve generalized muscle strength and endurance to optimize self-care and ADL function. Eval Complexity Eval Charge Codes 72874 - Low Complexity PHYSICIAN CERTIFICATION: I certify the specified therapy services for Irina Costa are required, authorized, and reviewed every 30 days.
[2023-11-27 17:43] LABS: POC Glucose,Bedside 183 (70-110)
[2023-11-27] MEDS: INSULIN GLARGINE 100 UNITS/ML 3ML FLEXPEN 60 UNIT SQ (21:17)
[2023-11-27] MEDS: PANTOPRAZOLE 40MG TABLET 40 MG PO (21:17)
[2023-11-27] MEDS: OXYCODONE 10MG W/APAP 325MG TABLET 1 EACH PO (21:17)
[2023-11-27 21:36] LABS: POC Glucose,Bedside 240 (70-110)
[2023-11-28] VITALS (10 sets, daily range): BP systolic 118–164; BP diastolic 69–86; PULSE 90–105; RESP 14–18; TEMP 36.6–36.9; O2SAT 90–97; BMI 35.4
--- NOTE | 2023-11-28 04:48 | PC.NURSE ---
Patient has had a good night tonight. Has been able to sleep more through the night since being taken off the bumex. The patient complained of pain early in the shift see JAN, has not complained of it since. Patient remains on 3L NC. Port in Chest remains saline locked. No other issues noted
[2023-11-28] MEDS: LEVOTHYROXINE 25MCG (0.025MG) TAB 25 MCG PO (06:01)
[2023-11-28 07:29] LABS: INR 2.17 (0.9-1.1); Prothrombin Time 22.3 seconds (10.1-12.5)
--- NOTE | 2023-11-28 08:01 | PC.NURSE ---
RA saturation @ rest is 93%
[2023-11-28] MEDS: ASPIRIN EC 81MG TABLET 81 MG PO (08:48)
[2023-11-28] MEDS: BUMETANIDE 1 MG TABLET PO ×2 (08:48→16:41)
[2023-11-28] MEDS: POTASSIUM CHLORIDE 20MEQ TAB 20 MEQ PO ×4 (08:49→21:42)
[2023-11-28] MEDS: CITALOPRAM 40MG TABLET 40 MG PO (08:49)
[2023-11-28] MEDS: METOPROLOL SUCCINATE XL 100MG TABLET 100 MG PO ×2 (08:49→21:42)
[2023-11-28] MEDS: humaLOG 100 UNITS/ML 3ML VIAL (SSI) SQ ×2 (11:32→21:42)
[2023-11-28] MEDS: WARFARIN 2MG TABLET 4 MG PO (11:32)
[2023-11-28 11:52] LABS: POC Glucose,Bedside 158 (70-110)
--- NOTE | 2023-11-28 16:00 | PC.NURSE ---
pt o2 on room air is 85
--- OUTSIDE RECORDS SUMMARY | 2023-11-28 16:25 | XMS_ITS | Clinical Summary ---
Author Name Unknown Address [address] [place] [address] Phone Organization [facility] Address [address] [place] [address] Phone Care Team Providers Care Film Historian Name Role Phone Joan Moore MD Unavailable [ ] Conditions or Problems Problem Name Problem Code Onset Date Status Entry Date Provider Comment Standard Description Annotate Bloodstream infection due to port, subsequent encounter(s) T80.211D (ICD-10-CM) Active 008 Lisa L Bloodstream infection due to central venous catheter, subsequent encounter Coag-negative staph sepsis/septic meia A41.1 (ICD-10-CM) Active 008 Lisa L Sepsis due to other specified staphylococcus Autoimmune hemolytic anemia, unspecified 175093603 (OMED CT) Active 0/08 Lisa L Autoimmune hemolytic anemia COPD 48024256 (SNOMED CT) Active 008 Lisa L Chronic obstructive lung disease Presence of prosthetic heart valve Z95.2 (ICD-10-CM) Active 0/08 Lisa L Presence of prosthetic heart valve HTN CKD, bgn, 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) 8299541 (SNOMED CT) Active 008 Lisa L Benign essential hypertension Medications Medication Instructions Start Date Stop Date Generic Name [facility] Provider CEFTRIAXONE SODIUM 1 GM SOLR 2gm IV Q 24hrs through 09/08 [facility] [phone] ceftriaxone [id number] [facility] LEVOTHYROXINE SODIUM 25 MCG TABS TAKE 1 TABLET BY MOUTH DAILY levothyroxine 45386274016 Belkis Mattson BUMETANIDE 2 MG TABS bumetanide 36501678681 Belkis Mattson DEXILANT 60 MG CPDR dexlansoprazole 60349092535 Belkis Mattson OLOPATADINE HCL 0.2 % SOLN olopatadine 73048491297 Belkis Mattson ALPRAZOLAM 0.5 MG TABS alprazolam 36973844291 Belkis Mattson WARFARIN SODIUM 4 MG TABS warfarin 60115001939 Belkis Mattson SPIRONOLACTONE 25 MG TABS TAKE 1 TABLET BY MOUTH ONCE A DAY. spironolactone 12512777837 Belkis Mattson FOLIC ACID 1 MG TABS TAKE 1 TABLET BY MOUTH ONCE A DAY. folic acid 28231368367 Belkis Mattson RAMY ASPIRIN EC LOW DOSE 81 MG TBEC aspirin 82867534996 Belkis Mattson CELEXA 40 MG TABS citalopram 80036920198 Belkis Mattson docusate sodium unspecified unspecified docusate sodium 33953525339 Angelita Mattson FAMOTIDINE 20 MG TABS famotidine 37364557901 Belkis Mattson PERCOCET 10-325 MG TABS oxycodone-acetam i nophen 23148072417 Belkis Mattson TOPROL XL 25 MG [id number] metoprolol succinate 18545415225 Belkis Mattson CEFTRIAXONE SODIUM 1 GM SOLR 2gm IV Q 24hrs through 09/08 [facility] [phone] ceftriaxone 84865020106 [facility] Medications Administered No information available. Allergies, Adverse Reactions, Alerts Allergy Name Reaction Description Start Date Severity Statu s Provider THEOPHYLLINE ER Moderate Active Bethany ronan Twila PROPAFENONE HCL Moderate Active Bethany ronan Mattson PENICILLIN V POTASSIUM Moderate Active Belkis Mattson METFORMIN HCL congestive heart failure Severe Active Belkis Mattson GLIPIZIDE congestive heart failure Severe Active Belkis Mattson DYE Moderate Active Belkis Mattson DETROL congestive heart failure Severe Active Belkis Mattson CODEINE SULFATE Moderate Active Bethany ttany Mattson BUPRENORPHINE Moderate Active Nevaeh dameon Mattson ANABOLIC STERIODS congewtive heart failure Severe Active Belkis Mattson Results Date Name Value Unit Range Flag Description Chart Maintenance: lab updat e INR 2.83 INR in [place] et poor plasma by Coagulation assay PT PATIENT 28 s Prothrombi n time (PT) CRP 0.9 mg/dL C reactive pr otein [Mass/volume] in Serum or Plasma BASO# 0.05 Basophils [#/ volume] in Blood BASOPHIL % 0.9 % Basophils/ 100 leukocytes in Blood by Manual count EOS ABSLT 0.20 10*3/uL Eosinophils [#/volume] in Blood % EOS AUTO 3.5 % Eosinophil s/100 leukocytes in Blood by Automated count MONOCYTE BF 9.2 % monocytes as percent of body fluid leukocytes MONOSCT AUTO 0.52 10*3/uL Monocyte s [#/volume] in Blood by Automated count LYMPHCT AUTO 0.32 10*3/mm3 Lymphoc ytes [#/volume] in Blood by Automated count LYMPHS % 5.6 % Lymphocytes/ 100 leukocytes in Blood by Automated count ABS NEUTROPH 4.57 10*3/uL Neutroph ils [#/volume] in Blood NEUTROP BF 80.6 % Neutrophil s/100 leukocytes in Body fluid PLATELETS 223 10*3/mm3 Platelets [#/volume] in Blood by Automated count HCT 31.9 % Hematocrit [V olume Fraction] of Blood by Automated count HGB 9.3 g/dL Hemoglobin [M ass/volume] in Blood RBC 3.51 10*6/mm3 Erythrocytes [#/volume] in Blood by Automated count WBC 5.7 10*3/mm3 Leukocytes [ #/volume] in Blood by Automated count BILI TOTAL 0.5 mg/dL Bilirubin. total [Mass/volume] in Serum or Plasma SGOT (AST) 15 U/L Aspartate aminotransferase [Enzymatic activity/volume] in Serum or Plasma SGPT (ALT) 15 U/L Alanine am inotransferase [Enzymatic activity/volume] in Serum or Plasma ALK PHOS 90 U/L Alkaline clay sphatase [Enzymatic activity/volume] in Blood CREATININE 1.2 mg/dL Creatinine [Mass/volume] in Serum or Plasma BUN 24 mg/dL Urea nitrogen [Mass/volume] in Serum or Plasma CALCIUM 9.3 mg/dL Calcium [Mole s/volume] in Serum or Plasma POTASSIUM 3.9 mmol/L Potassium [ Moles/volume] in Serum or Plasma SODIUM 141 mmol/L Sodium [Moles /volume] in Serum or Plasma GLUCOSE SER 110 mg/dL Glucose [ Mass/volume] in Serum or Plasma Office Visit: 10 MEDS REVIEW Done Documenta tion of current medications (procedure) SMOK STATUS Former smoker Tob acco smoking status Plan of Care Type Date Detail Pending order Other Drug Procedures Code Procedure Name Date Entry Date CPT-OD Other Drug Vital Signs Date Name Value Unit Description Body Temperature 96.8 [degF] temperat ure E&M BP Diastolic 82 mm[Hg] blood pressu re, diastolic BP Systolic 128 mm[Hg] blood pressur e, systolic Heart Rate 67 /min pulse rate Weight Measured 201.4 [lb_av] weight E& M Immunizations No information available. Advance Directives Directive Description Start Date NO LIVING WILL ON FILE
--- OUTSIDE RECORDS SUMMARY | 2023-11-28 16:26 | XMS_ITS | Clinical Summary ---
Author Name Unknown Address [address] [place] [address] Phone Organization [facility] Address [address] [place] [address] Phone Care Team Providers Care Registration Scheduling Specialist Name Role Phone Joan Moore MD Unavailable [...] other specified staphylococcus Autoimmune hemolytic anemia, unspecified 011084840 (OMED CT) Active 0/08 Lisa L Autoimmune hemolytic anemia COPD 47132518 (SNOMED CT) Active 008 Lisa L Chronic obstructive lung disease Presence of prosthetic heart valve Z95.2 (ICD-10-CM) Active 0/08 Lisa L Presence of prosthetic heart valve HTN CKD, bgn, 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) 6543498 (SNOMED CT) Active 008 Lisa L Benign essential hypertension Medications Medication Instructions Start Date Stop Date Generic Name [facility] Provider CEFTRIAXONE SODIUM 1 GM SOLR 2gm IV Q 24hrs through 09/08 [facility] [phone] ceftriaxone 81001039692 [facility] LEVOTHYROXINE SODIUM 25 MCG TABS TAKE 1 TABLET BY MOUTH DAILY levothyroxine 57118701062 Belkis Mattson BUMETANIDE 2 MG TABS bumetanide 03663976047 Belkis Mattson DEXILANT 60 MG CPDR dexlansoprazole 63442024298 Belkis Mattson OLOPATADINE HCL 0.2 % SOLN olopatadine 24211201359 Belkis Mattson ALPRAZOLAM 0.5 MG TABS alprazolam 00938506476 Belkis Mattson WARFARIN SODIUM 4 MG TABS warfarin 74669161928 Belkis Mattson SPIRONOLACTONE 25 MG TABS TAKE 1 TABLET BY MOUTH ONCE A DAY. spironolactone 49172852014 Belkis Mattson FOLIC ACID 1 MG TABS TAKE 1 TABLET BY MOUTH ONCE A DAY. folic acid 03521918449 Belkis Mattson RAMY ASPIRIN EC LOW DOSE 81 MG TBEC aspirin 03720205402 Belkis Mattson CELEXA 40 MG TABS citalopram 76262290783 Belkis Mattson docusate sodium unspecified unspecified docusate sodium 16023090147 Angelita Mattson FAMOTIDINE 20 MG TABS famotidine 81064355361 Belkis Mattson PERCOCET 10-325 MG TABS oxycodone-acetam i nophen 76550053454 Belkis Mattson TOPROL XL 25 MG [id number] metoprolol succinate 30863864830 Belkis Mattson CEFTRIAXONE SODIUM 1 GM SOLR 2gm IV Q 24hrs through 09/08 [facility] [phone] ceftriaxone 29515850004 [facility] Medications Administered No information available. Allergies, Adverse [...]
--- OUTSIDE RECORDS SUMMARY | 2023-11-28 16:27 | XMS_ITS | Clinical Summary ---
Author Name Unknown Address [address] [place] [address] Phone Organization [facility] Address [address] [place] [address] Phone Care Team Providers Care Cattle Farmer Name Role Phone Joan Moore MD Unavailable [...] other specified staphylococcus Autoimmune hemolytic anemia, unspecified 128470104 (OMED CT) Active 0/08 Lisa L Autoimmune hemolytic anemia COPD 70140408 (SNOMED CT) Active 008 Lisa L Chronic obstructive lung disease Presence of prosthetic heart valve Z95.2 (ICD-10-CM) Active 0/08 Lisa L Presence of prosthetic heart valve HTN CKD, bgn, 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) 4941176 (SNOMED CT) Active 008 Lisa L Benign essential hypertension Medications Medication Instructions Start Date Stop Date Generic Name [facility] Provider CEFTRIAXONE SODIUM 1 GM SOLR 2gm IV Q 24hrs through 09/08 [facility] [phone] ceftriaxone 66616411613 [facility] LEVOTHYROXINE SODIUM 25 MCG TABS TAKE 1 TABLET BY MOUTH DAILY levothyroxine 96504760891 Belkis Mattson BUMETANIDE 2 MG TABS bumetanide 83832508204 Belkis Mattson DEXILANT 60 MG CPDR dexlansoprazole 10563289783 Belkis Mattson OLOPATADINE HCL 0.2 % SOLN olopatadine 40215847246 Belkis Mattson ALPRAZOLAM 0.5 MG TABS alprazolam 35595901453 Belkis Mattson WARFARIN SODIUM 4 MG TABS warfarin 12478004935 Belkis Mattson SPIRONOLACTONE 25 MG TABS TAKE 1 TABLET BY MOUTH ONCE A DAY. spironolactone 75074738605 Belkis Mattson FOLIC ACID 1 MG TABS TAKE 1 TABLET BY MOUTH ONCE A DAY. folic acid 93448382580 Belkis Mattson RAMY ASPIRIN EC LOW DOSE 81 MG TBEC aspirin 00993428276 Belkis Mattson CELEXA 40 MG TABS citalopram 11002997192 Belkis Mattson docusate sodium unspecified unspecified docusate sodium 67869160702 Angelita Mattson FAMOTIDINE 20 MG TABS famotidine 55569227992 Belkis Mattson PERCOCET 10-325 MG TABS oxycodone-acetam i nophen 62864694774 Belkis Mattson TOPROL XL 25 MG [id number] metoprolol succinate 92899759297 Belkis Mattson CEFTRIAXONE SODIUM 1 GM SOLR 2gm IV Q 24hrs through 09/08 [facility] [phone] ceftriaxone 51478632493 [facility] Medications Administered No information available. Allergies, [...] Mattson DETROL congestive heart failure Severe Active Blekis Mattson CODEINE SULFATE Moderate Active Bethany ttany [...]
--- NOTE | 2023-11-28 16:33 | EXP.PN ---
Subjective *Date: 11/28/23 *Time: 16:33 Interval history: Patient was seen and evaluated at the bedside. reprots SOB but better and R arm pain is also better, No reported acute events overnight, denies chest pain, nausea, vomiting, abdominal pain. Exam Data for Last 24 hours Vital signs and Labs for Last 24 Hours: Temp Pulse Resp BP Pulse Ox O2 Del Method O2 Flow Rate 98.3 F 100 H 17 164/75 H 97 Nasal Cannula 2 11/28/23 15:46 11/28/23 16:00 11/28/23 15:46 11/28/23 15:46 11/28/23 15:46 11/28/23 15:46 11/28/23 15:46 Laboratory Results - last 24 hr 11/27/23 17:34: POC Glucose 183 H 11/27/23 21:11: POC Glucose 240 H 11/28/23 06:40: PT 22.3 H, INR 2.17 H 11/28/23 11:31: POC Glucose 158 H I & O for Last 24 hours: Intake & Output 11/25/23 11/26/23 11/27/23 11/28/23 23:59 23:59 23:59 23:59 Intake Total 1131.083 / 1131.083 720 / 820 810 / 810 Output Total 1500 / 1500 2800 / 2800 1200 / 1200 0 / 0 Balance -1500 / -1260 -1668.917 / -1668.917 -480 / -380 810 / 810 Weight 98.997 kg 98.97 kg 95.98 kg 94.166 kg Constitutional Constitutional: no acute distress *Routine HEENT Exam Head: Present normocephalic Eye: Present EOMI and PERRL ENT: Present mucous membranes moist *Routine Neck Exam Neck: Present supple; Absent lymphadenopathy *Routine Respiratory Exam Respiratory: Present CTA bilaterally *Routine Cardiovascular Exam Cardiovascular: Present RRR *Routine Abdominal Exam Abdominal: Present soft and normoactive bowel sounds; Absent tenderness *Routine Extremities Exam Extremities: Present edema; Absent cyanosis or clubbing *Routine Skin Exam Skin: Present warm; Absent rash *Routine Neurological Exam Neurological: Present alert and oriented X3 Assessment and Plan *Assessment and plan (1) CHF exacerbation: Status: Acute Qualifiers: Heart failure type: unspecified Qualified Code(s): I50.9 - Heart failure, unspecified Category: Medical Code(s): I50.9 - Heart failure, unspecified (2) Atrial fibrillation, chronic: Status: Acute Category: Medical Code(s): I48.20 - Chronic atrial fibrillation, unspecified (3) CKD (chronic kidney disease): Status: Acute Qualifiers: Chronic kidney disease stage: stage 3 (moderate) Chronic kidney disease stage 3 subtype: stage 3b (GFR 30-44) Qualified Code(s): N18.32 - Chronic kidney disease, stage 3b Category: Medical Code(s): N18.9 - Chronic kidney disease, unspecified (4) Diastolic heart failure: Status: Chronic Qualifiers: Heart failure chronicity: acute on chronic Qualified Code(s): I50.33 - Acute on chronic diastolic (congestive) heart failure Category: Medical Code(s): I50.30 - Unspecified diastolic (congestive) heart failure (5) Hyperlipidemia: Status: Chronic Qualifiers: Hyperlipidemia type: mixed hyperlipidemia Qualified Code(s): E78.2 - Mixed hyperlipidemia Category: Medical Code(s): E78.5 - Hyperlipidemia, unspecified (6) Diabetes mellitus: Status: Chronic Qualifiers: Diabetes mellitus complication status: without complication Diabetes mellitus type: type 1 Qualified Code(s): E10.9 - Type 1 diabetes mellitus without complications Category: Medical Code(s): E11.9 - Type 2 diabetes mellitus without complications Plan Patient is a 58-year-old female with past medical history of CHF and atrial fibrillation on Coumadin, COPD, diabetes mellitus, hypertension hyperlipidemia CKD stage IV who presented to hospital from cardiology office due to weight gain bilateral lower extremity swelling. Patient mentions she has been having shortness of breath bilateral lower extremity swelling, she gained around 20 pounds in weight. She was not hospital directly from cardiology office. Patient denies fever chills diarrhea constipation dysuria. Assessment Acute on chronic CHF Diabetes mellitus Atrial fibrillation on warfarin COPD Hypertension Hyperlipidemia CKD stage IV Plan switch to PO Bumex Strict I's and O's Low-salt diet Insulin sliding scale Monitor and replace electrolytes Order chest x-ray Resume home medications including aspirin, warfarin ( managed by pharmacy) DVT prophylaxis-on warfarin wean o2 as tolerated, O2 eval at dc, patient is not feeling comfortable going home, continue Bumex, order CXR - results reviewed, dc tomorrow,
--- NOTE | 2023-11-28 18:40 | PC.NURSE ---
pt is more alert this afternoon. She has had less episodes of incontinence. RA saturation was checked again and it was 85%. she is currently 95% on 2lnc
[2023-11-28] MEDS: OXYCODONE 10MG W/APAP 325MG TABLET 1 EACH PO (20:12)
[2023-11-28] MEDS: PANTOPRAZOLE 40MG TABLET 40 MG PO (21:42)
[2023-11-28] MEDS: INSULIN GLARGINE 100 UNITS/ML 3ML FLEXPEN 60 UNIT SQ (21:43)
[2023-11-28 22:15] LABS: POC Glucose,Bedside 135 (70-110)
[2023-11-28 22:15] LABS: POC Glucose,Bedside 206 (70-110)
[2023-11-29] VITALS: BP 108/62; PULSE 100; PULSE 110; RESP 16; TEMP 36.6; O2SAT 95
[2023-11-29 04:00] VITALS: BP 121/72; PULSE 98; RESP 16; TEMP 36.8; O2SAT 95; BMI 35.4
[2023-11-29] MEDS: LEVOTHYROXINE 25MCG (0.025MG) TAB 25 MCG PO (06:27)
[2023-11-29 07:00] LABS: Basophils % 0.2 % (0.1-2.0); Eosinophils # 0.2 K/mm3 (0.0-0.4); Hemoglobin 10.2 g/dL (12.2-16.2); Lymphocytes # 0.5 K/mm3 (0.7-4.5); Lymphocytes % 5.5 % (10-50); Mean Corpuscular HGB Conc 31.9 g/dL (31.8-35.4); Mean Corpuscular Hemoglobin 28.2 pg (27.0-31.2); Mean Corpuscular Volume 88.3 fl (81-99); Mean Platelet Volume 9.2 fl (7.4-10.4); Monocytes # 0.7 K/mm3 (0.1-1.0); Monocytes % 7.9 % (1.7-9.3); Neutrophils # 7.1 K/mm3 (1.8-7.8); Neutrophils % 84.5 % (37.0-80.0); Platelet Count 149 K/mm3 (142-424); Red Blood Count 3.63 M/mm3 (4.20-5.40); Red Cell Distribution Width 19.4 % (11.5-17.5); White Blood Count 8.4 K/mm3 (4.8-10.8)
[2023-11-29 07:00] LABS: POC Glucose,Bedside 144 (70-110)
[2023-11-29 07:04] LABS: INR 1.96 (0.9-1.1); Prothrombin Time 20.3 seconds (10.1-12.5)
[2023-11-29 07:11] LABS: Alanine Aminotransferase 16 U/L (12-78); Albumin Level 3.7 g/dl (3.5-5.0); Albumin/Globulin Ratio 1.2 (1.1-1.8); Alkaline Phosphatase 96 U/L (38-126); Aspartate Amino Transferase 27 U/L (14-36); Bilirubin,Total 0.5 mg/dl (0.2-1.3); Blood Urea Nitrogen 27 mg/dl (7-17); Calcium 8.6 mg/dl (8.4-10.2); Chloride 86 mmol/L (98-107); Creatinine Clearance Estimated 74 mL/min (50-200); Estimated Glomerular Filt Rate 46 ml/min (>60); GFR (African American) 55 ML/MIN (>60); Globulin 3.2 g/dL (1.3-3.2); Glucose 142 mg/dl (74-100); Potassium 4.1 mmoL/L (3.5-5.1); Sodium 131 mmol/L (136-145); Total Protein,Serum 6.9 g/dl (6.3-8.2)
[2023-11-29 07:17] LABS: Anion Gap 12.1 mEq/L (5-15); Carbon Dioxide 37 mmol/L (22.0-30.0)
[2023-11-29 08:00] VITALS: BP 118/67; PULSE 101; PULSE 103; RESP 18; TEMP 36.6; O2SAT 99
[2023-11-29] MEDS: CITALOPRAM 40MG TABLET 40 MG PO (09:09)
[2023-11-29] MEDS: ASPIRIN EC 81MG TABLET 81 MG PO (09:09)
[2023-11-29] MEDS: POTASSIUM CHLORIDE 20MEQ TAB 20 MEQ PO (09:09)
[2023-11-29] MEDS: ENOXAPARIN 100MG/ML SYRINGE 90 MG SQ (09:09)
[2023-11-29] MEDS: BUMETANIDE 1 MG TABLET PO (09:10)
[2023-11-29] MEDS: METOPROLOL SUCCINATE XL 100MG TABLET 100 MG PO (09:10)
--- NOTE | 2023-11-29 10:09 | EXP.DC.SUM ---
General Admission date:: 11/27/23 Discharge date: 11/29/23 HPI HPI HPI: Hyperlipidemia patient is a 58-year-old female with past medical history of CHF and atrial fibrillation on Coumadin, COPD, diabetes mellitus, hypertension hyperlipidemia CKD stage IV who presented to hospital from cardiology office due to weight gain bilateral lower extremity swelling. Patient mentions she has been having shortness of breath bilateral lower extremity swelling, she gained around 20 pounds in weight. She was not hospital directly from cardiology office. Patient denies fever chills diarrhea constipation dysuria. Hospital Course Hospital Course Hospital Course: Patient was seen and evaluated at the bedside on the day of discharge. Patient is stable for discharge. Patient wishes to be discharged. All patient questions were answered and patient was given time to ask questions. Patient was discharged in stable condition. Patient understands that she can return to ER in case of any sudden changes in health. Total time spent on DC - 38 mins Patient is a 58-year-old female with past medical history of CHF and atrial fibrillation on Coumadin, COPD, diabetes mellitus, hypertension hyperlipidemia CKD stage IV who presented to hospital from cardiology office due to weight gain bilateral lower extremity swelling. Patient mentions she has been having shortness of breath bilateral lower extremity swelling, she gained around 20 pounds in weight. She was not hospital directly from cardiology office. Patient denies fever chills diarrhea constipation dysuria. Assessment Acute on chronic CHF - improved, started o Bumex, low salt diet recommended, f/u with Cardiology at [place] Diabetes mellitus Atrial fibrillation on warfarin COPD Hypertension Hyperlipidemia CKD stage IV Exam Data for Last 24 hours Vital signs and Labs for Last 24 Hours: Temp Pulse Resp BP Pulse Ox O2 Del Method O2 Flow Rate 97.8 F 101 H 18 118/67 99 Nasal Cannula 2 11/29/23 08:00 11/29/23 08:00 11/29/23 08:00 11/29/23 08:00 11/29/23 08:00 11/29/23 09:00 11/29/23 09:00 Laboratory Results - last 24 hr 11/28/23 11:31: POC Glucose 158 H 11/28/23 16:37: POC Glucose 135 H 11/28/23 20:12: POC Glucose 206 H 11/29/23 06:17: WBC 8.4, RBC 3.63 L, Hgb 10.2 L, Hct 32.0 L, MCV 88.3, MCH 28.2, MCHC 31.9, RDW 19.4 H, Plt Count 149, MPV 9.2, Neut % (Auto) 84.5 H, Lymph % (Auto) 5.5 L, [place] % (Auto) 7.9, Eos % (Auto) 2.0, Baso % (Auto) 0.2, Neut # (Auto) 7.1, Lymph # (Auto) 0.5 L, [place] # (Auto) 0.7, Eos # (Auto) 0.2, Baso # (Auto) 0.0, PT 20.3 H, INR 1.96 H, Sodium 131 L, Potassium 4.1 D, Chloride 86 L, Carbon Dioxide 37 H, Anion Gap 12.1, BUN 27 H D, Creatinine 1.20 H, Estimated Creat Clear 74, Estimated GFR 46 L, Est GFR ( Amer) 55 L, Glucose 142 H, Calcium 8.6, Total Bilirubin 0.5, AST 27, ALT 16, Alkaline Phosphatase 96, Total Protein 6.9, Albumin 3.7, Globulin 3.2, Albumin/Globulin Ratio 1.2 11/29/23 06:26: POC Glucose 144 H I & O for Last 24 hours: Intake & Output 11/26/23 11/27/23 11/28/23 11/29/23 23:59 23:59 23:59 23:59 Intake Total 1131.083 / 1131.083 720 / 820 1050 / 1050 360 / 360 Output Total 2800 / 2800 1200 / 1200 800 / 800 200 / 200 Balance -1668.917 / -1668.917 -480 / -380 250 / 250 160 / 160 Weight 98.97 kg 95.98 kg 94.166 kg 94.166 kg Constitutional Constitutional: no acute distress *Routine HEENT Exam Head: Present normocephalic Eye: Present EOMI and PERRL ENT: Present mucous membranes moist *Routine Neck Exam Neck: Present supple; Absent lymphadenopathy *Routine Respiratory Exam Respiratory: Present CTA bilaterally *Routine Cardiovascular Exam Cardiovascular: Present RRR *Routine Abdominal Exam Abdominal: Present soft and normoactive bowel sounds; Absent tenderness *Routine Extremities Exam Extremities: Present edema; Absent cyanosis or clubbing Comments: has 1 plus edema lower legs *Routine Skin Exam Skin: Present warm; Absent rash *Routine Neurological Exam Neurological: Present alert and oriented X3 Results Data Completed and Pending Labs on day of discharge: Labs from last 24 hours 11/29/23 11/29/23 11/28/23 06:26 06:17 20:12 WBC 8.4 RBC 3.63 L Hgb 10.2 L Hct 32.0 L MCV 88.3 MCH 28.2 MCHC 31.9 RDW 19.4 H Plt Count 149 MPV 9.2 Neut % (Auto) 84.5 H Lymph % (Auto) 5.5 L [place] % (Auto) 7.9 Eos % (Auto) 2.0 Baso % (Auto) 0.2 Neut # (Auto) 7.1 Lymph # (Auto) 0.5 L [place] # (Auto) 0.7 Eos # (Auto) 0.2 Baso # (Auto) 0.0 PT 20.3 H INR 1.96 H Sodium 131 L Potassium 4.1 D Chloride 86 L Carbon Dioxide 37 H Anion Gap 12.1 BUN 27 H D Creatinine 1.20 H Estimated Creat Clear 74 Estimated GFR 46 L Est GFR ( Amer) 55 L Glucose 142 H POC Glucose 144 H 206 H Calcium 8.6 Total Bilirubin 0.5 AST 27 ALT 16 Alkaline Phosphatase 96 Total Protein 6.9 Albumin 3.7 Globulin 3.2 Albumin/Globulin Ratio 1.2 11/28/23 11/28/23 16:37 11:31 WBC RBC Hgb Hct MCV MCH MCHC RDW Plt Count MPV Neut % (Auto) Lymph % (Auto) [place] % (Auto) Eos % (Auto) Baso % (Auto) Neut # (Auto) Lymph # (Auto) [place] # (Auto) Eos # (Auto) Baso # (Auto) PT INR Sodium Potassium Chloride Carbon Dioxide Anion Gap BUN Creatinine Estimated Creat Clear Estimated GFR Est GFR ( Amer) Glucose POC Glucose 135 H 158 H Calcium Total Bilirubin AST ALT Alkaline Phosphatase Total Protein Albumin Globulin Albumin/Globulin Ratio DS: Diagnosis Discharge Diagnosis (1) CHF exacerbation: Status: Acute Code(s): I50.9 - Heart failure, unspecified Qualifiers: Heart failure type: unspecified Qualified Code(s): I50.9 - Heart failure, unspecified (2) Atrial fibrillation, chronic: Status: Acute Code(s): I48.20 - Chronic atrial fibrillation, unspecified (3) CKD (chronic kidney disease): Status: Acute Code(s): N18.9 - Chronic kidney disease, unspecified Qualifiers: Chronic kidney disease stage: stage 3 (moderate) Chronic kidney disease stage 3 subtype: stage 3b (GFR 30-44) Qualified Code(s): N18.32 - Chronic kidney disease, stage 3b (4) Diastolic heart failure: Status: Chronic Code(s): I50.30 - Unspecified diastolic (congestive) heart failure Qualifiers: Heart failure chronicity: acute on chronic Qualified Code(s): I50.33 - Acute on chronic diastolic (congestive) heart failure (5) Hyperlipidemia: Status: Chronic Code(s): E78.5 - Hyperlipidemia, unspecified Qualifiers: Hyperlipidemia type: mixed hyperlipidemia Qualified Code(s): E78.2 - Mixed hyperlipidemia (6) Diabetes mellitus: Status: Chronic Code(s): E11.9 - Type 2 diabetes mellitus without complications Qualifiers: Diabetes mellitus complication status: without complication Diabetes mellitus type: type 1 Qualified Code(s): E10.9 - Type 1 diabetes mellitus without complications Meds Home Medications and Allergies Home Medications Medication Instructions Recorded Confirmed Type aspirin 81 mg tablet,delayed 81 mg PO DAILY 12/01/17 11/25/23 History release (Adult Low Dose Aspirin) oxycodone-acetaminophen 10 mg-325 1 tab PO TIDP PRN Moderate Pain 05/23/18 11/25/23 History mg tablet (Percocet) alprazolam 0.5 mg tablet (Xanax) 0.5 mg PO TID 11/29/19 11/25/23 History citalopram 40 mg tablet 40 mg PO DAILY 03/31/21 11/25/23 History levothyroxine 25 mcg tablet 25 mcg PO AM 06/05/21 11/26/23 History insulin glargine 100 50 units SQ DAILY 02/22/22 11/25/23 History unit-lixisenatide 33 mcg/mL subcutaneous pen febuxostat 40 mg tablet 40 mg PO DAILY 02/09/23 11/25/23 History omeprazole 40 mg capsule,delayed 40 mg PO BID 02/23/23 11/25/23 History release potassium chloride 20 mEq 20 meq PO BID 04/15/23 11/25/23 History tablet,extended release(part/cryst) spironolactone 25 mg tablet 25 mg PO BID 10/05/23 01/04/24 History Lactobacills gasseri-Bifidobac 1 cap PO DAILY 10/30/23 11/25/23 History bifidum,longum 1.5 billion cell capsule (Probiotic Colon Support) bisacodyl 5 mg tablet,delayed 5 mg PO HS 10/30/23 11/25/23 History release (Gentle Laxative (bisacodyl)) calcitriol 0.25 mcg capsule 0.25 mcg PO DAILY 10/30/23 11/25/23 History colchicine 0.6 mg capsule 0.6 mg PO DAILYP PRN gout 10/30/23 11/25/23 History (Mitigare) warfarin 4 mg tablet 4 mg PO SUTUTHSA 10/31/23 11/25/23 History warfarin 4 mg tablet 2 mg PO MOWEFR 11/25/23 11/25/23 History benzonatate 100 mg capsule 100 mg PO Q4HP PRN Cough 11/26/23 11/25/23 History budesonide 0.5 mg/2 mL suspension 0.5 mg inhalation BID 11/26/23 11/26/23 History for nebulization bumetanide 1 mg tablet 1 mg PO BID 11/26/23 11/25/23 History metoprolol succinate 200 mg 100 mg PO BID High Blood Pressure 11/26/23 11/26/23 History tablet,extended release 24 hr bumetanide 1 mg tablet 1 mg PO BIDL 30 days #60 tabs 11/29/23 Rx metoprolol succinate 100 mg 100 mg PO BID 30 days #60 tabs 11/29/23 Rx tablet,extended release 24 hr New Prescriptions to Start Prescriptions: bumetanide Beata Connor metoprolol succinate Beata Connor Allergies Allergy/AdvReac Type Severity Reaction Status Date / Time codeine [CODEINE] Allergy Unknown nausea, Verified 11/25/23 14:49 swelling Corticosteroids Allergy Unknown Unknown Verified 11/26/23 07:51 (Glucocorticoids) allergy [CORTICOSTEROIDS reaction (GLUCOCORTICOIDS)] rosuvastatin [From CRESTOR] Allergy Unknown Unknown Verified 11/26/23 07:51 allergy reaction theophylline [From DAVID-DUR] Allergy Unknown Unknown Verified 11/26/23 07:51 allergy reaction Iodinated Contrast Media AdvReac Severe shuts Verified 11/25/23 14:49 [IODINATED CONTRAST- ORAL kidneys AND IV DYE] down and bleeding buprenorphine [From BUPRENEX] AdvReac Intermediate Nausea Verified 11/25/23 14:49 lisinopril AdvReac Cough Verified 11/26/23 07:51 prednisone AdvReac Unknown Verified 11/26/23 07:51 allergy reaction sacubitril [From Entresto] AdvReac Hypotension Verified 11/26/23 07:51 valsartan [From Entresto] AdvReac Hypotension Verified 11/26/23 07:51 Discharge Plan Disposition Patient Disposition: Home, Self-Care Condition: Good Discharge Order Discharge Orders: Discharge Order (Routine); Ordered 11/29/23 Ordered By: Beata Connor Follow up Plan Follow up with: Tod Sawyer MD [Staff Physician] - 1 week Prescriptions/Medication Reconciliation: New metoprolol succinate 100 mg Tablet Extended Release 24 Hr 100 mg PO BID 30 Days Qty: 60 0RF bumetanide 1 mg Tablet 1 mg PO BIDL 30 Days Qty: 60 0RF Continued aspirin [Adult Low Dose Aspirin] 81 mg tablet,delayed release (DR/EC) 81 mg PO DAILY oxycodone-acetaminophen [Percocet] 10-325 mg tablet 1 tab PO TIDP PRN (Reason: Moderate Pain) spironolactone 25 mg tablet 25 mg PO BID Patient Comments: TAKE ONE TABLET BY MOUTH 2 TIMES DAILY FOR EDEMA alprazolam [Xanax] 0.5 mg tablet 0.5 mg PO TID citalopram 40 mg tablet 40 mg PO DAILY potassium chloride 20 mEq tablet,ER particles/crystals 20 meq PO BID omeprazole 40 mg capsule,delayed release(DR/EC) 40 mg PO BID levothyroxine 25 MCG tablet 25 mcg PO AM bisacodyl [Gentle Laxative (bisacodyl)] 5 mg Tablet,Delayed Release (Dr/Ec) 5 mg PO HS calcitriol 0.25 mcg Capsule 0.25 mcg PO DAILY Probiotic Colon Support 1.5 billion cell Capsule 1 cap PO DAILY colchicine [Mitigare] 0.6 mg Capsule 0.6 mg PO DAILYP PRN (Reason: gout) warfarin 4 mg tablet 4 mg PO SUTUTHSA warfarin 4 mg tablet 2 mg PO MOWEFR Patient Comments: TAKE 1 TABLET BY MOUTH ONCE A DAY. metoprolol succinate 200 mg tablet extended release 24 hr 100 mg PO BID Patient Comments: TAKE 1 TABLET BY MOUTH ONCE A DAY FOR BLOOD PRESSURE benzonatate 100 mg capsule 100 mg PO Q4HP PRN (Reason: Cough) bumetanide 1 mg tablet 1 mg PO BID budesonide 0.5 mg/2 mL suspension for nebulization 0.5 mg inhalation BID insulin glargine-lixisenatide 3 ML insulin pen 50 units SQ DAILY febuxostat 40 mg tablet 40 mg PO DAILY Problem Reconciliation Problems Reviewed?: Yes Patient Discharge Instructions ACTIVITY: Ambulate as tolerated DIET: diabetic diet and low salt diet Additional Instructions: low salt diet closely monitor your weight Patient Instructions: DI for Heart Failure, Coumadin Vitamin K/ Diet Providers Primary Care Provider: Reji Castro Provider: Beata Connor Attending Provider: Beata Connor
--- NOTE | 2023-11-29 10:16 | SW/DCPLANNER ---
I spoke w/ this patient regarding plans once medically stable for discharge. PT/OT evaluated patient and recommended SNF or home health. Patient stated that she resides at home alone w/ sitter at night. Patient is not interested in SNF or home health services at this time. Patient stated that she does have home O2 PRN at this time. Patient does not have any further questions/needs at this time. Patient will discharge home today.
--- NOTE | 2023-11-29 13:07 | CARE MANAGER ---
Patient has Oxygen through [facility]. I contacted them and they state she has an order for continuous. I let them know she is in need of portable tanks and they state they will deliver to her when she gets home. Patient has one for the trip home. JEREMIAH Hillman
--- NOTE | 2023-11-29 15:32 | P.PN_ITS ---
Subjective Subjective Date: 11/29/23 Time: 10:00 Principal diagnosis: CHF Interval history: This is a 58-year-old white female still complaining of discomfort in her right arm after having contrast injected for test at [facility]. The patient denies any chest pain or pressure. She states that her shortness of breath has improved since being in the hospital. She still feels like she is short of breath with exertion but this is getting better. She states that her strength has improved. She states that her edema has also improved. She states that she is starting to feel better than she did when she came into the hospital. She denies any fever, chills, nausea, vomiting, diarrhea. Exam Data for Last 24 hours Vital signs and Labs for Last 24 Hours: Temp Pulse Resp BP Pulse Ox O2 Del Method O2 Flow Rate 97.8 F 101 H 18 118/67 99 Room Air 2 11/29/23 08:00 11/29/23 08:00 11/29/23 08:00 11/29/23 08:00 11/29/23 08:00 11/29/23 11:00 11/29/23 09:00 Laboratory Results - last 24 hr 11/28/23 16:37: POC Glucose 135 H 11/28/23 20:12: POC Glucose 206 H 11/29/23 06:17: WBC 8.4, RBC 3.63 L, Hgb 10.2 L, Hct 32.0 L, MCV 88.3, MCH 28.2, MCHC 31.9, RDW 19.4 H, Plt Count 149, MPV 9.2, Neut % (Auto) 84.5 H, Lymph % (Auto) 5.5 L, [place] % (Auto) 7.9, Eos % (Auto) 2.0, Baso % (Auto) 0.2, Neut # (Auto) 7.1, Lymph # (Auto) 0.5 L, [place] # (Auto) 0.7, Eos # (Auto) 0.2, Baso # (Auto) 0.0, PT 20.3 H, INR 1.96 H, Sodium 131 L, Potassium 4.1 D, Chloride 86 L , Carbon Dioxide 37 H, Anion Gap 12.1, BUN 27 H D, Creatinine 1.20 H, Estimated Creat Clear 74, Estimated GFR 46 L, Est GFR ( Amer) 55 L, Glucose 142 H, Calcium 8.6, Total Bilirubin 0.5, AST 27, ALT 16, Alkaline Phosphatase 96, Total Protein 6.9, Albumin 3.7, Globulin 3.2, Albumin/Globulin Ratio 1.2 11/29/23 06:26: POC Glucose 144 H I & O for Last 24 hours: Intake & Output 11/26/23 11/27/23 11/28/23 11/29/23 23:59 23:59 23:59 23:59 Intake Total 1131.083 / 1131.083 720 / 820 1050 / 1050 360 / 360 Output Total 2800 / 2800 1200 / 1200 800 / 800 200 / 200 Balance -1668.917 / -1668.917 -480 / -380 250 / 250 160 / 160 Weight 218 lb 3.064 oz 211 lb 9.6 oz 207 lb 9.6 oz 207 lb 9.608 oz Constitutional Constitutional: no acute distress and average body habitus *Routine HEENT Exam Head: Present normocephalic and atraumatic ENT: Present mucous membranes moist *Routine Neck Exam Neck: Present supple, full ROM and normal carotid upstroke; Absent JVD, carotid bruit or lymphadenopathy *Routine Respiratory Exam Respiratory: Present CTA bilaterally, normal respiratory effort, able to speak in complete sentences and symmetric chest movement *Routine Cardiovascular Exam Cardiovascular: Present Normal S1, Normal S2, click and irregularly irregular; Absent murmur or gallop *Routine Abdominal Exam Abdominal: Present soft and normoactive bowel sounds; Absent tenderness, distended or organomegaly *Routine Extremities Exam Extremities: Present full ROM, pulses intact and normal capillary refill; Absent cyanosis, clubbing or edema *Routine Skin Exam Skin: Present intact and warm; Absent erythema *Routine Neurological Exam Neurological: Present alert, oriented X3 and CN II-XII intact; Absent sensory deficit or motor deficit Routine Psychiatric Exam Psychiatric: Present normal affect Progress Note: A&P Assessment and plan (1) CHF exacerbation: Status: Acute (2) Atrial fibrillation, chronic: Status: Acute (3) CKD (chronic kidney disease): Status: Acute (4) Diastolic heart failure: Status: Chronic (5) Hyperlipidemia: Status: Chronic (6) Diabetes mellitus: Status: Chronic (7) Hypertensive heart disease: Status: Chronic (8) CKD (chronic kidney disease) stage 4, GFR 15-29 ml/min: Status: Acute (9) half-way current use of anticoagulants with INR goal of 2.5-3.5: Status: Chronic Assessment and Plan Assessment and Plan for All Diagnoses:: Plan: 1. This is a 58-year-old female who presented to the hospital for admission due to an exacerbation of HFpEF. The patient was diuresed with IV Bumex over the weekend. She has been converted over to oral Bumex. Her shortness of breath and edema have improved. Will continue her on oral Bumex at home. 2. The patient has chronic atrial fibrillation. She is currently rate controlled. On long-term anticoagulation with Coumadin. 3. She is status post mechanical mitral valve. On long-term anticoagulation with Coumadin. 4. Her blood pressure is well-controlled. 5. Her LDL goal is less than 100. 6. The patient has chronic anemia. This is currently stable. 7. The patient has chronic kidney disease. Her renal function is stable. 8. The patient continues to complain of right arm pain from a contrast procedure at [facility]. Will defer this to the hospitalist. 9. No further recommendations at this time from a cardiac standpoint. The patient is stable for discharge home today from a cardiac standpoint on Bumex. Thank you for the opportunity to help participate in the care of this patient. All recommendations and orders are per Dr. Caldwell.
--- NOTE | 2023-11-30 15:23 | CARE MANAGER ---
Contacted patient related to hospital discharge. She states that she isn't doing well, but better than she was. She picked up her medications and is aware of her follow up appointments. She denies questions or concerns. JEREMIAH Hillman
== END 2023-11-29 11:50 | disposition home or self-care (01) | DRG 291 ==
PROVIDERS: Physician Assistant; Admitting Provider Internal Medicine; PCP Internal Medicine Adolescent Medicine; Visit Provider Internal Medicine
DX: I50.33 Acute on chronic diastolic (congestive) heart failure (principal); I13.0 Hypertensive heart and chronic kidney disease with heart failure and stage 1 through stage 4 chronic kidney disease, or unspecified chronic kidney disease; I48.20 Chronic atrial fibrillation, unspecified; Z79.01 Long term (current) use of anticoagulants; J44.9 Chronic obstructive pulmonary disease, unspecified; E11.22 Type 2 diabetes mellitus with diabetic chronic kidney disease; I42.9 Cardiomyopathy, unspecified; I25.10 Atherosclerotic heart disease of native coronary artery without angina pectoris; M19.90 Unspecified osteoarthritis, unspecified site; Z86.718 Personal history of other venous thrombosis and embolism; K21.9 Gastro-esophageal reflux disease without esophagitis; E03.9 Hypothyroidism, unspecified; Z87.891 Personal history of nicotine dependence; Z95.2 Presence of prosthetic heart valve; E83.42 Hypomagnesemia; E87.6 Hypokalemia; N18.32 Chronic kidney disease, stage 3b; E78.2 Mixed hyperlipidemia; Z79.4 Long term (current) use of insulin
CPT/HCPCS: 36415; 71045; 71046; 73020; 73060; 80048; 80053; 82962; 83735; 83880; 85025; 85610; 94761; 97116; 97161; 97530; J3475

== ENCOUNTER 2023-12-02 11:36 | Outpatient (CLI) | payer MEDICARE, MEDICAID, SELFPAY ==
[2023-12-02 11:51] VITALS: BMI 37.9
[2023-12-02 12:12] LABS: Basophils % 0.5 % (0.1-2.0); Eosinophils # 0.2 K/mm3 (0.0-0.4); Eosinophils % 3.7 % (0.1-12.0); Hematocrit 32.1 % (37.0-47.0); Hemoglobin 10.1 g/dL (12.2-16.2); Lymphocytes # 0.5 K/mm3 (0.7-4.5); Lymphocytes % 8.7 % (10-50); Mean Corpuscular HGB Conc 31.4 g/dL (31.8-35.4); Mean Corpuscular Hemoglobin 27.5 pg (27.0-31.2); Mean Corpuscular Volume 87.5 fl (81-99); Mean Platelet Volume 9.5 fl (7.4-10.4); Monocytes # 0.4 K/mm3 (0.1-1.0); Neutrophils # 4.8 K/mm3 (1.8-7.8); Platelet Count 254 K/mm3 (142-424); Red Blood Count 3.67 M/mm3 (4.20-5.40); Red Cell Distribution Width 19.3 % (11.5-17.5)
[2023-12-02 12:20] LABS: Iron 55 ug/dL (37-170)
[2023-12-02 12:29] LABS: Total Iron Binding Capacity 379 ug/dL (265-497)
[2023-12-02 12:51] LABS: INR 2.44 (0.9-1.1); Prothrombin Time 24.9 seconds (10.1-12.5)
[2023-12-02 12:57] LABS: Ferritin 236 ng/ml (11.1-264)
== END 2023-12-02 12:42 | disposition home or self-care (01) ==
LOC: INF 11:38
PROVIDERS: PCP Internal Medicine Adolescent Medicine; Visit Provider Internal Medicine Medical Oncology
DX: Z45.2 Encounter for adjustment and management of vascular access device; D50.9 Iron deficiency anemia, unspecified; Z51.81 Encounter for therapeutic drug level monitoring; Z79.01 Long term (current) use of anticoagulants
CPT/HCPCS: 36591; 82728; 83540; 83550; 85025; 85610; J1642

== ENCOUNTER 2023-12-14 09:21 | Outpatient (CLI) | payer MEDICARE, MEDICAID, SELFPAY ==
[2023-12-14 09:40] VITALS: BMI 37.9
[2023-12-14 09:48] LABS: PHA INR Fingerstick 2.4 (0.9-1.1)
[2023-12-14] MEDS: SODIUM CHLORIDE 0.9% 10ML FLUSH SYRINGE 10 ML IV (09:48)
[2023-12-14 09:54] LABS: Basophils # 0.1 K/mm3 (0-0.2); Basophils % 0.7 % (0.1-2.0); Eosinophils # 0.3 K/mm3 (0.0-0.4); Hematocrit 34.9 % (37.0-47.0); Hemoglobin 11.2 g/dL (12.2-16.2); Lymphocytes # 0.5 K/mm3 (0.7-4.5); Lymphocytes % 7.2 % (10-50); Mean Corpuscular HGB Conc 32.1 g/dL (31.8-35.4); Mean Corpuscular Hemoglobin 27.8 pg (27.0-31.2); Mean Corpuscular Volume 86.4 fl (81-99); Mean Platelet Volume 8.3 fl (7.4-10.4); Monocytes # 0.3 K/mm3 (0.1-1.0); Monocytes % 4.8 % (1.7-9.3); Neutrophils # 5.9 K/mm3 (1.8-7.8); Neutrophils % 83.3 % (37.0-80.0); Platelet Count 255 K/mm3 (142-424); Red Blood Count 4.04 M/mm3 (4.20-5.40); White Blood Count 7.1 K/mm3 (4.8-10.8)
[2023-12-14 14:54] LABS: Chloride 98 mmol/L (98-107); Potassium 4.1 mmoL/L (3.5-5.1); Sodium 140 mmol/L (136-145)
[2023-12-14 14:57] LABS: Anion Gap 12.1 mEq/L (5-15); Blood Urea Nitrogen 38 mg/dl (7-17); Calcium 9.6 mg/dl (8.4-10.2); Carbon Dioxide 34 mmol/L (22.0-30.0); Creatine Kinase 34 U/L (30-135); Creatinine Clearance Estimated 59 mL/min (50-200); Estimated Glomerular Filt Rate 33 ml/min (>60); GFR (African American) 40 ML/MIN (>60); Glucose 136 mg/dl (74-100)
== END 2023-12-14 23:59 | disposition home or self-care (01) ==
PROVIDERS: Physician Assistant; PCP Internal Medicine Adolescent Medicine; Visit Provider Internal Medicine Medical Oncology
DX: D64.9 Anemia, unspecified (principal); Z79.01 Long term (current) use of anticoagulants; E78.5 Hyperlipidemia, unspecified; I50.23 Acute on chronic systolic (congestive) heart failure; J44.9 Chronic obstructive pulmonary disease, unspecified; K21.9 Gastro-esophageal reflux disease without esophagitis; M79.602 Pain in left arm; R06.00 Dyspnea, unspecified; Z95.2 Presence of prosthetic heart valve; Z45.2 Encounter for adjustment and management of vascular access device; D50.9 Iron deficiency anemia, unspecified; Z51.81 Encounter for therapeutic drug level monitoring
CPT/HCPCS: 36591; 80048; 82550; 85025; 85610; 99211; G0463; J1642

== ENCOUNTER 2024-01-14 09:10 | Outpatient (CLI) | payer MEDICARE, MEDICAID, SELFPAY ==
[2024-01-14 09:35] VITALS: BMI 32.5
[2024-01-14 10:42] LABS: Microscopic, Urine URINE MICROSCOPIC (MICROSCOPIC)
[2024-01-14 10:44] LABS: Appearance,Urine CLEAR (Clear); Bilirubin,Urine Negative (Negative); Blood, Urine Negative (Negative); Color,Urine YELLOW (Yellow); Glucose,Urine (UA) Negative (Negative); Ketones,Urine Negative (Negative); Leukocyte Esterase,Urine Negative (Negative); Nitrate,Urine Negative (Negative); PH,Urine 6.5 (5.0-8.5); Protein,Urine Negative (Negative); Urobilinogen,Urine 0.2 EU/dl (0.2)
[2024-01-14 10:47] LABS: Basophils % 0.3 % (0.1-2.0); Eosinophils # 0.3 K/mm3 (0.0-0.4); Eosinophils % 3.6 % (0.1-12.0); Hematocrit 33.1 % (37.0-47.0); Hemoglobin 10.4 g/dL (12.2-16.2); Lymphocytes # 0.6 K/mm3 (0.7-4.5); Lymphocytes % 8.1 % (10-50); Mean Corpuscular HGB Conc 31.5 g/dL (31.8-35.4); Mean Corpuscular Hemoglobin 27.2 pg (27.0-31.2); Mean Corpuscular Volume 86.2 fl (81-99); Mean Platelet Volume 8.2 fl (7.4-10.4); Monocytes # 0.4 K/mm3 (0.1-1.0); Monocytes % 5.4 % (1.7-9.3); Neutrophils # 5.9 K/mm3 (1.8-7.8); Neutrophils % 82.6 % (37.0-80.0); Platelet Count 227 K/mm3 (142-424); Red Blood Count 3.84 M/mm3 (4.20-5.40); Red Cell Distribution Width 17.7 % (11.5-17.5); White Blood Count 7.1 K/mm3 (4.8-10.8)
[2024-01-14 10:57] LABS: Intact Parathyroid Hormone 284.9 pg/mL (7.5-53.5)
[2024-01-14 10:59] LABS: Creatinine,Urine Random 44 mg/dL (Not Estab.)
[2024-01-14 11:24] LABS: PHA INR Fingerstick 2.3 (0.9-1.1)
[2024-01-14 11:37] LABS: 25-OH Vitamin D, Total 36.4 ng/mL (30-100); Uric Acid 8.6 mg/dl (2.5-6.2)
[2024-01-14 11:41] LABS: Bacteria,Urine Trace /lpf; RBC,Urine Occasional #/hpf (0-3)
[2024-01-14 12:00] LABS: Chloride 98 mmol/L (98-107)
[2024-01-14 12:01] LABS: Potassium 3.9 mmoL/L (3.5-5.1); Sodium 138 mmol/L (136-145)
[2024-01-14 12:03] LABS: Alanine Aminotransferase 22 U/L (12-78); Albumin Level 4.6 g/dl (3.5-5.0); Albumin/Globulin Ratio 1.4 (1.1-1.8); Alkaline Phosphatase 119 U/L (38-126); Anion Gap 8.9 mEq/L (5-15); Aspartate Amino Transferase 29 U/L (14-36); Bilirubin,Total 0.7 mg/dl (0.2-1.3); Blood Urea Nitrogen 36 mg/dl (7-17); Calcium 9.7 mg/dl (8.4-10.2); Carbon Dioxide 35 mmol/L (22.0-30.0); Creatinine Clearance Estimated 68 mL/min (50-200); Estimated Glomerular Filt Rate 46 ml/min (>60); GFR (African American) 55 ML/MIN (>60); Globulin 3.3 g/dL (1.3-3.2); Glucose 179 mg/dl (74-100); Total Protein,Serum 7.9 g/dl (6.3-8.2)
[2024-01-14 13:09] LABS: Hemoglobin A1C 7.8 % (4.0-6.0)
== END 2024-01-14 11:28 ==
LOC: ACC 09:11 → INF 10:09
PROVIDERS: Internal Medicine Nephrology; PCP Internal Medicine Adolescent Medicine; Visit Provider Internal Medicine Adolescent Medicine
DX: N18.30 Chronic kidney disease, stage 3 unspecified (principal); E55.9 Vitamin D deficiency, unspecified; E11.22 Type 2 diabetes mellitus with diabetic chronic kidney disease; Z79.01 Long term (current) use of anticoagulants; Z79.4 Long term (current) use of insulin
CPT/HCPCS: 36591; 80053; 81001; 82306; 82570; 83036; 83970; 84155; 84550; 85025; 85610; 99211; G0463

== ENCOUNTER 2024-01-15 07:45 | Emergency (ER) | payer MEDICARE, MEDICAID, SELFPAY ==
[2024-01-15 07:45] VITALS: BP 126/68; PULSE 86; RESP 22; TEMP 37.1; O2SAT 92; BMI 32.9
--- NOTE | 2024-01-15 07:51 | PC.NURSE ---
Dr. Davidson at [facility] for pt eval
--- NOTE | 2024-01-15 07:51 | ECG_ITS ---
APPROVED REPORT Exam: Resting ECG HR:84 bpm ECG Measurements Heart Rate 84 AXES QRSd 118 QRS 106 QT 376 T 75 QTc 417 Conclusion ATRIAL FIBRILLATION RIGHT AXIS DEVIATION [QRS AXIS > 100] INCOMPLETE RIGHT BUNDLE BRANCH BLOCK [90+ ms QRS DURATION, TERMINAL R IN V1/V2, 40+ ms S IN I/aVL/V4/V5/V6] ABNORMAL ECG UNCONFIRMED REPORT Electronically signed by : Reji Castro MD 01/15/2024 12:33:12
--- NOTE | 2024-01-15 07:55 | XR_ITS ---
PROCEDURE INFORMATION: Exam: XR Chest Exam date and time: 01/15/2024 8:02 AM Age: 58 years old Clinical indication: Shortness of breath and wheezing; Additional info: SOB, wheezing TECHNIQUE: Imaging protocol: Radiologic exam of the chest. Views: 1 view. COMPARISON: CR XR CHEST PORTABLE 11/27/2023 4:23 PM FINDINGS: Tubes, catheters and devices: A right-sided Port-A-Cath is noted with its tip projected over the superior vena cava. Lungs: Unremarkable. No consolidation. Pleural spaces: Unremarkable. No pleural effusion. No pneumothorax. Heart/Mediastinum: The heart is enlarged with a metallic valve annulus implant. Bones/joints: The patient is post sternotomy. IMPRESSION: Cardiomegaly. Postsurgical change.
--- NOTE | 2024-01-15 07:55 | PC.NURSE ---
Pt receiving neb treatment, attempting to access pt's port to collect labs.
--- NOTE | 2024-01-15 07:57 | [facility].EDCP ---
Discharge Plan Disposition Patient Disposition: Home, Self-Care Prescriptions Prescriptions: New azithromycin [Zithromax Z-Daniel] 250 mg tablet 250 mg PO DAILY 4 Days Qty: 4 0RF Rx Instructions: start on 01/16 oseltamivir [Tamiflu] 75 mg capsule 75 mg PO Q12H 5 Days Qty: 9 0RF ipratropium-albuterol 0.5 mg-3 mg(2.5 mg base)/3 mL solution for nebulization 3 ml inhalation Q3H PRN (Reason: shortness of breath) Qty: 90 0RF Rx Instructions: until breathing returns to target peak flow/parameters No Action aspirin [Adult Low Dose Aspirin] 81 mg tablet,delayed release (DR/EC) 81 mg PO DAILY oxycodone-acetaminophen [Percocet] 10-325 mg tablet 1 tab PO TIDP PRN (Reason: Moderate Pain) spironolactone 25 mg tablet 25 mg PO BID Patient Comments: TAKE ONE TABLET BY MOUTH 2 TIMES DAILY FOR EDEMA alprazolam [Xanax] 0.5 mg tablet 0.5 mg PO TID citalopram 40 mg tablet 40 mg PO DAILY potassium chloride 20 mEq tablet,ER particles/crystals 20 meq PO BID omeprazole 40 mg capsule,delayed release(DR/EC) 40 mg PO BID levothyroxine 25 MCG tablet 25 mcg PO AM bisacodyl [Gentle Laxative (bisacodyl)] 5 mg Tablet,Delayed Release (Dr/Ec) 5 mg PO HS calcitriol 0.25 mcg Capsule 0.25 mcg PO DAILY Probiotic Colon Support 1.5 billion cell Capsule 1 cap PO DAILY colchicine [Mitigare] 0.6 mg Capsule 0.6 mg PO DAILYP PRN (Reason: gout) warfarin 4 mg tablet 4 mg PO SUTUTHSA warfarin 4 mg tablet 2 mg PO MOWEFR Patient Comments: TAKE 1 TABLET BY MOUTH ONCE A DAY. metoprolol succinate 200 mg tablet extended release 24 hr 100 mg PO BID Patient Comments: TAKE 1 TABLET BY MOUTH ONCE A DAY FOR BLOOD PRESSURE benzonatate 100 mg capsule 100 mg PO Q4HP PRN (Reason: Cough) bumetanide 1 mg tablet 1 mg PO BID budesonide 0.5 mg/2 mL suspension for nebulization 0.5 mg inhalation BID metoprolol succinate 100 mg Tablet Extended Release 24 Hr 100 mg PO BID 30 Days Qty: 60 0RF bumetanide 1 mg Tablet 1 mg PO BIDL 30 Days Qty: 60 0RF insulin glargine-lixisenatide 3 ML insulin pen 50 units SQ DAILY febuxostat 40 mg tablet 40 mg PO DAILY Referrals Follow up/Referrals: Reji Castro MD [Primary Care Provider] - See instructions Activity Restrictions/Add. Instructions Additional Instructions/Restrictions: At this time it was felt you are safe to be discharged home. If new or worsening symptoms please do not hesitate to return the emergency department. If symptoms persist please follow-up with your family doctor as you are able. Please take your medications as prescribed. Clinical Impressions Clinical Impression: Influenza A, Acute exacerbation of chronic obstructive pulmonary disease Discharge ED Provider: Lio Davidson HPI General Chief Complaint: Shortness of Breath/Dyspnea Stated Complaint: SOA Time Seen by Provider: 01/15/24 07:47 Mode of Arrival: Ambulatory Source of Information: Patient Limitations: No Limitations Description of Symptoms (Recalled from ER Triage Doc. by RN): Patient reports shortness of breath since 630 last night. Complains of scratchy throat and cough as well. States she has been having to use her PRN oxygen continuously. History of Present Illness HPI narrative: Patient is a 58-year-old female with past medical history of COPD intermittently on 2 L nasal cannula at home, insulin-dependent diabetes who presents emergency department for evaluation of shortness of breath and cough. Onset was acute, over the last 24 hours, no sick contacts at home. No other acute complaints at this time. No chest pain. Related Data Home Medications Medication Instructions Recorded Confirmed aspirin 81 mg tablet,delayed 81 mg PO DAILY 12/01/17 12/14/23 release (Adult Low Dose Aspirin) oxycodone-acetaminophen 10 mg-325 1 tab PO TIDP PRN Moderate Pain 05/23/18 12/14/23 mg tablet (Percocet) alprazolam 0.5 mg tablet (Xanax) 0.5 mg PO TID 11/29/19 12/14/23 citalopram 40 mg tablet 40 mg PO DAILY 03/31/21 12/14/23 levothyroxine 25 mcg tablet 25 mcg PO AM 06/05/21 12/14/23 insulin glargine 100 50 units SQ DAILY 02/22/22 12/14/23 unit-lixisenatide 33 mcg/mL subcutaneous pen febuxostat 40 mg tablet 40 mg PO DAILY 02/09/23 12/14/23 omeprazole 40 mg capsule,delayed 40 mg PO BID 02/23/23 12/14/23 release potassium chloride 20 mEq 20 meq PO BID 04/15/23 12/14/23 tablet,extended release(part/cryst) spironolactone 25 mg tablet 25 mg PO BID 08/26/23 12/14/23 Lactobacills gasseri-Bifidobac 1 cap PO DAILY 10/30/23 12/14/23 bifidum,longum 1.5 billion cell capsule (Probiotic Colon Support) bisacodyl 5 mg tablet,delayed 5 mg PO HS 10/30/23 12/14/23 release (Gentle Laxative (bisacodyl)) calcitriol 0.25 mcg capsule 0.25 mcg PO DAILY 10/30/23 12/14/23 colchicine 0.6 mg capsule 0.6 mg PO DAILYP PRN gout 10/30/23 12/14/23 (Mitigare) warfarin 4 mg tablet 4 mg PO SUTUTHSA 10/31/23 12/14/23 warfarin 4 mg tablet 2 mg PO MOWEFR 11/25/23 12/14/23 benzonatate 100 mg capsule 100 mg PO Q4HP PRN Cough 11/26/23 12/14/23 budesonide 0.5 mg/2 mL suspension 0.5 mg inhalation BID 11/26/23 12/14/23 for nebulization bumetanide 1 mg tablet 1 mg PO BID 11/26/23 12/14/23 metoprolol succinate 200 mg 100 mg PO BID High Blood Pressure 11/26/23 12/14/23 tablet,extended release 24 hr Previous Rx's Medication Instructions Recorded bumetanide 1 mg tablet 1 mg PO BIDL 30 days #60 tabs 11/29/23 metoprolol succinate 100 mg 100 mg PO BID 30 days #60 tabs 11/29/23 tablet,extended release 24 hr azithromycin 250 mg tablet 250 mg PO DAILY COPD 4 days #4 tabs 01/15/24 (Zithromax Z-Daniel) ipratropium 0.5 mg-albuterol 3 mg 3 ml inhalation Q3H PRN shortness 01/15/24 (2.5 mg base)/3 mL nebulization of breath #90 mL soln oseltamivir 75 mg capsule (Tamiflu) 75 mg PO Q12H 5 days #9 caps 01/15/24 Allergies Allergy/AdvReac Type Severity Reaction Status Date / Time codeine [CODEINE] Allergy Unknown nausea, Verified 12/14/23 13:35 swelling Corticosteroids Allergy Unknown Unknown Verified 12/14/23 13:35 (Glucocorticoids) allergy [CORTICOSTEROIDS reaction (GLUCOCORTICOIDS)] rosuvastatin [From CRESTOR] Allergy Unknown Unknown Verified 12/14/23 13:35 allergy reaction theophylline [From DAVID-DUR] Allergy Unknown Unknown Verified 12/14/23 13:35 allergy reaction Iodinated Contrast Media AdvReac Severe shuts Verified 12/14/23 13:35 [IODINATED CONTRAST- ORAL kidneys AND IV DYE] down and bleeding buprenorphine [From BUPRENEX] AdvReac Intermediate Nausea Verified 12/14/23 13:35 lisinopril AdvReac Cough Verified 12/14/23 13:35 prednisone AdvReac Unknown Verified 12/14/23 13:35 allergy reaction sacubitril [From Entresto] AdvReac Hypotension Verified 12/14/23 13:35 valsartan [From Entresto] AdvReac Hypotension Verified 12/14/23 13:35 PFSH PFSH Disclaimer: The information contained in this section may have been updated after the patient was seen, as this information can be updated by other users. Medical History (Updated 01/15/24 @ 09:41 by Lio Davidson MD) Acute on chronic HFrEF (heart failure with reduced ejection fraction) Afib Afib Anemia Anemia Anemia Arrhythmia Arrhythmia Arthritis Arthritis Atrial fibrillation, chronic Autoimmune hemolytic anemia Blood transfusion reaction Blood transfusion reaction CAD (coronary artery disease) Cancer Cardiomyopathy Cardiomyopathy CHF (congestive heart failure) CHF (congestive heart failure) CHF exacerbation CKD (chronic kidney disease) CKD (chronic kidney disease) CKD (chronic kidney disease) stage 3, GFR 30-59 ml/min CKD (chronic kidney disease) stage 4, GFR 15-29 ml/min Class 1 obesity Congestive heart failure, NYHA class III COPD (chronic obstructive pulmonary disease) COPD (chronic obstructive pulmonary disease) COPD exacerbation Coronary artery disease Diabetes mellitus Diastolic heart failure DM type 2 (diabetes mellitus, type 2) DVT (deep venous thrombosis) DVT (deep venous thrombosis) Dyspnea GERD (gastroesophageal reflux disease) GERD (gastroesophageal reflux disease) Hernia HLD (hyperlipidemia) HLD (hyperlipidemia) HLD (hyperlipidemia) HTN (hypertension) Hyperlipidemia Hyperlipidemia Hypertension Hypertensive heart disease Hypothyroidism Hypothyroidism Liver disease Liver disease 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 with INR goal of 2.5-3.5 NYHA class 3 acute on chronic systolic heart failure Polyarthralgia Pulmonary edema Rheumatic heart disease Rib fracture Sinus problem Sinus problem Systolic CHF Thyroid disease Tricuspid valve regurgitation Typical angina Valvular heart disease Surgical History H/O tubal ligation History of angioplasty History of cardiac cath History of cardiac catheterization History of colon resection History of colon resection History of hernia repair History of mitral valve replacement with mechanical valve History of renal stent History of renal stent History of tubal ligation History of ureteroscopy Mitral valve replaced Family History Other Breast cancer COPD (chronic obstructive pulmonary disease) Colon cancer Family history of acute heart failure Family history of hyperlipidemia Family history of hypertension Family history of myocardial infarction Hypertension Stroke Social History Smoking Status: Former smoker tobacco type: cigarettes packs per day: 1 smoking status stop date: 01/09/2006 quit status: quit date established second hand exposure: Yes alcohol intake: never substance use type: denies use current occupational status: retired and disabled Travel in the last 8 weeks: None adopted: No caregiver/support person: No foster care: No household members: significant other housing: house lives independently: Yes marital status: life partner education level: college service: No jail: No current occupational exposures/hazards: No sexually active: Yes how many partners: 1 are you practicing safe sex: Yes diet: diabetic well-balanced diet: about half the time caffeine: No eating out: rarely or never during the past year weight has: remained stable bhavya/holiness: Jainism special bhavya needs: No agree to transfusion: Yes helmet use: No water heater temp set < 120 deg: Yes working smoke detector in home: Yes fire extinguisher in home: Yes carbon monox detector in home: Yes firearms in home: No do you feel safe at home: Yes victim of physical abuse: No victim of emotional abuse: No victim of sexual abuse: No would you like helpful sources: No ROS Obtained: Yes Systems reviewed as appropriate & no additional complaints except as documented Physical Exam General General appearance: alert and in no apparent distress Head Head exam: atraumatic and normocephalic Eye Eye exam: Present PERRL ENT ENT exam: Present mucous membranes moist Neck Neck exam: Present normal inspection Chest Chest inspection: Present normal inspection and symmetric chest wall rise Respiratory Respiratory exam: Present wheezes (Diffuse, expiratory phase); Absent respiratory distress Cardiovascular Cardiovascular exam: Present regular rate and normal rhythm Abdominal Exam Abdominal exam: Present soft; Absent tenderness Extremities Exam Extremities exam: Present normal inspection and other (No pitting edema) Neurological Exam Neurological exam: Present alert Psychiatric Psychiatric exam: Present normal affect Skin Skin exam: Present warm and dry HEART Score HEART Score HEART Score assessment performed?: Yes History (anamnesis): Slightly suspicious ECG: Normal Age: 45-65 years Risk factors: 3 or more risk factors Troponin: </= normal limit HEART Score: 3 Critical Care Critical Care Time Critical Care Time: No Medical Decision Making Jeancarlos Inquiry Pt receiving controlled substance: No Vital Signs Vital Signs: 01/15/24 07:45 01/15/24 08:00 01/15/24 08:30 Temperature 98.8 F Temperature Source Oral Pulse Rate 88 95 H Pulse Rate [Radial] 86 Respiratory Rate 22 Blood Pressure 126/69 133/78 Blood Pressure [Right Arm] 126/68 Blood Pressure Mean Blood Pressure Mean [Right Arm] 87 Blood Pressure Source [Right Arm] Automatic Cuff Blood Pressure Position [Right Arm] Sitting 02 Sat by Pulse Oximetry 92 L 93 L 92 L Oxygen Delivery Method Room Air Nasal Cannula Nasal Cannula Oxygen Flow Rate (LPM) 2 2 01/15/24 09:01 Temperature Temperature Source Pulse Rate 103 H Pulse Rate [Radial] Respiratory Rate Blood Pressure 126/76 Blood Pressure [Right Arm] Blood Pressure Mean 97 Blood Pressure Mean [Right Arm] Blood Pressure Source [Right Arm] Blood Pressure Position [Right Arm] 02 Sat by Pulse Oximetry 97 Oxygen Delivery Method Nasal Cannula Oxygen Flow Rate (LPM) 2 Lab Data Labs: Lab Results 01/15/24 07:55: VBG pH 7.37, VBG pCO2 47.5, VBG pO2 73.3 H, VBG HCO3 27.0, VBG Total CO2 28.4 H, VBG O2 Saturation 94.3 H, VBG Base Excess 1.7, SARS-CoV-2 (PCR) Not detected, Influenza A Untype (PCR) Detected A, Influenza Type B (PCR) Not detected 01/15/24 08:20: WBC 11.3 H D, RBC 3.87 L, Hgb 10.3 L, Hct 32.9 L, MCV 85.1, MCH 26.5 L, MCHC 31.2 L, RDW 17.6 H, Plt Count 212, MPV 8.3, Neut % (Auto) 89.6 H, Lymph % (Auto) 5.4 L, Bandera % (Auto) 3.6, Eos % (Auto) 1.3, Baso % (Auto) 0.1, Neut # (Auto) 10.1 H, Lymph # (Auto) 0.6 L, Bandera # (Auto) 0.4, Eos # (Auto) 0.2, Baso # (Auto) 0.0, Sodium 136, Potassium 3.9, Chloride 98, Carbon Dioxide 34 H, Anion Gap 7.9, BUN 37 H, Creatinine 1.30 H, Estimated Creat Clear 63, Estimated GFR 42 L, Est GFR ( Amer) 51 L, Glucose 203 H, Calcium 9.4, Total Bilirubin 1.0, AST 30, ALT 24, Alkaline Phosphatase 115, Troponin I < 0.01, NT-Pro-B Natriuret Pep 1440 H, Total Protein 7.6, Albumin 4.5, Globulin 3.1, Albumin/Globulin Ratio 1.5 01/15/24 08:20 01/15/24 08:20 Response Orders (Tests/Meds): ED MEDICATIONS Generic Name Dose Route Start Last Admin Trade Name Freq PRN Reason Stop Dose Admin Magnesium Sulfate 2 gm in 50 mls @ 50 mls/hr 01/15/24 09:19 01/15/24 09:33 Magnesium Sulfate 2gm/50ml Premix IV 01/15/24 10:18 50 mls/hr ONCE ONE Administration Discontinued Medications Generic Name Dose Route Start Last Admin Trade Name Freq PRN Reason Stop Dose Admin Albuterol/Ipratropium 9 ml 01/15/24 07:55 01/15/24 08:01 Ipratropium/Albuterol 3 Ml Neb IH 01/15/24 07:56 9 ml ONCE ONE Administration Azithromycin 500 mg/ Sodium 250 mls @ 250 mls/hr 01/15/24 07:56 01/15/24 08:11 Chloride IV 01/15/24 07:57 250 mls/hr ONCE ONE Administration Oseltamivir Phosphate 75 mg 01/15/24 08:42 01/15/24 08:48 Oseltamivir 75mg Capsule PO 01/15/24 08:43 75 mg ONCE ONE Administration ORDERS Category Date Time Status CXR --portable [XR chest portable] Stat Exams 01/15/24 07:55 Completed BNP [Brain Natriuretic Peptide] Stat Lab 01/15/24 08:20 Completed CBC w/Auto Diff [Complete Blood Count Auto Diff] Stat Lab 01/15/24 08:20 Results CMP [Comprehensive Metabolic Panel] Stat Lab 01/15/24 08:20 Completed Rapid PCR Covid and Flu A/B Stat Lab 01/15/24 07:55 Completed Trop I [Troponin I] Stat Lab 01/15/24 08:20 Completed Troponin I Q3H Lab 01/15/24 11:00 Ordered Troponin I Q3H Lab 01/15/24 14:00 Ordered VBG [Venous Blood Gas] Stat RT 01/15/24 07:55 Completed ECG Data Tracing #1: ECG Narrative: Independently interpreted by me, rate is 84, rhythm is irregular, atrial fibrillation, no ST elevation in anatomical contiguous leads, QTc 417. MDM Narrative Medical Decision Narrative: In summary patient is a 58-year-old female with past medical history described above who presents emergency department for evaluation of shortness of breath. Patient is hemodynamically stable nontoxic-appearing upon arrival, afebrile. Patient is using 2 L nasal cannula which she is prescribed at home intermittently. Diffuse expiratory phase wheezing. Differential includes pneumonia, COPD exacerbation, atypical ACS, among others. Initial workup will be conducted with hematologic labs, chest x-ray, EKG, troponin, viral swab. Initial inventions include DuoNeb's x 3, azithromycin. Unfortunately patient is adamant that she cannot take steroids due to fluid retention hyperglycemia so will not be administered. Workup reviewed by me, hematologic labs are nonactionable, stable anemia and stable CKD, no critical electrolyte abnormalities, compensated acid-base status. Chest x-ray informally interpreted by me, cardiomegaly, no acute lobar opacities or large pneumothorax, formal read shows cardiomegaly. Initial troponin below detectable limit, BNP is downtrending from previous. Upon repeat evaluation patient had large resolution of wheezing, viral swab remarkable for influenza A for which initial dose of Tamiflu will be administered. Patient will be given magnesium sulfate in an effort to prevent bronchoconstriction. Upon repeat evaluation patient was at baseline oxygen status, no significant respiratory distress. Given this patient is appropriate for discharge at this time will be discharged with a course of Tamiflu and azithromycin and was given return precautions.
[2024-01-15 08:00] VITALS: BP 126/69; PULSE 88; O2SAT 93
--- NOTE | 2024-01-15 08:00 | PC.NURSE ---
Notified RT of VBG order
[2024-01-15] MEDS: IPRATROPIUM/ALBUTEROL 3 ML NEB 9 ML IH (08:01)
--- NOTE | 2024-01-15 08:07 | PC.NURSE ---
RAD at for CXR
[2024-01-15] MEDS: AZITHROMYCIN 500 MG in 0.9 % SODIUM CHLORIDE 250 ML 250 MG IV (08:11)
[2024-01-15 08:12] LABS: Coronavirus 19, PCR Not Detected (NotDetected); Influenza B, PCR Not Detected (NotDetected)
[2024-01-15 08:30] VITALS: BP 133/78; PULSE 95; O2SAT 92
[2024-01-15 08:36] LABS: Influenza A, PCR Detected (NotDetected)
[2024-01-15 08:39] LABS: Basophils % 0.1 % (0.1-2.0); Eosinophils # 0.2 K/mm3 (0.0-0.4); Eosinophils % 1.3 % (0.1-12.0); Hematocrit 32.9 % (37.0-47.0); Hemoglobin 10.3 g/dL (12.2-16.2); Lymphocytes # 0.6 K/mm3 (0.7-4.5); Lymphocytes % 5.4 % (10-50); Mean Corpuscular HGB Conc 31.2 g/dL (31.8-35.4); Mean Corpuscular Hemoglobin 26.5 pg (27.0-31.2); Mean Corpuscular Volume 85.1 fl (81-99); Mean Platelet Volume 8.3 fl (7.4-10.4); Monocytes # 0.4 K/mm3 (0.1-1.0); Monocytes % 3.6 % (1.7-9.3); Neutrophils # 10.1 K/mm3 (1.8-7.8); Neutrophils % 89.6 % (37.0-80.0); Platelet Count 212 K/mm3 (142-424); Red Blood Count 3.87 M/mm3 (4.20-5.40); Red Cell Distribution Width 17.6 % (11.5-17.5); White Blood Count 11.3 K/mm3 (4.8-10.8)
[2024-01-15 08:40] LABS: Chloride 98 mmol/L (98-107); Potassium 3.9 mmoL/L (3.5-5.1); Sodium 136 mmol/L (136-145)
[2024-01-15 08:43] LABS: Alanine Aminotransferase 24 U/L (12-78); Albumin Level 4.5 g/dl (3.5-5.0); Albumin/Globulin Ratio 1.5 (1.1-1.8); Alkaline Phosphatase 115 U/L (38-126); Anion Gap 7.9 mEq/L (5-15); Aspartate Amino Transferase 30 U/L (14-36); Blood Urea Nitrogen 37 mg/dl (7-17); Calcium 9.4 mg/dl (8.4-10.2); Carbon Dioxide 34 mmol/L (22.0-30.0); Creatinine Clearance Estimated 63 mL/min (50-200); Estimated Glomerular Filt Rate 42 ml/min (>60); GFR (African American) 51 ML/MIN (>60); Globulin 3.1 g/dL (1.3-3.2); Glucose 203 mg/dl (74-100); Total Protein,Serum 7.6 g/dl (6.3-8.2)
[2024-01-15 08:48] LABS: VBG Base Excess 1.7 mmol/L (-2.4-2.3); VBG Oxygen Saturation 94.3 % (50-70); VBG PCO2 47.5 mmol/L (35-51); VBG PH 7.37 mmol/L (7.31-7.41); VBG PO2 73.3 mmol/L (28-40); VBG Total CO2 28.4 mmol/L (23-27)
[2024-01-15] MEDS: OSELTAMIVIR 75MG CAPSULE 75 MG PO (08:48)
[2024-01-15 08:50] LABS: MANUAL DIFFERENTIAL MANUAL DIFFERENTIAL (MANUAL DIFF)
--- NOTE | 2024-01-15 08:52 | PC.NURSE ---
Rounded on pt. Advised she needed to use bathroom. Pt ambulatory to bathroom with no assistance and back to bed. No o9ther needs voiced and call light within reach.
[2024-01-15 08:53] LABS: NT Pro Brain Natriuretic Pep. 1440 pg/mL (0-125)
[2024-01-15 08:56] LABS: Troponin I < 0.01 ng/ml (0.00-0.034)
[2024-01-15 09:01] VITALS: BP 126/76; PULSE 103; O2SAT 97
--- NOTE | 2024-01-15 09:13 | PC.NURSE ---
Dr. Davidson at [facility] for pt eval
[2024-01-15 09:31] VITALS: BP 146/95; PULSE 107; O2SAT 94
[2024-01-15] MEDS: MAGNESIUM SULFATE IN WATER 2 GM/50 ML PIGGYBACK IV (09:33)
[2024-01-15 09:55] LABS: Eosinophils % 1 % (0-3); Hypochromasia 1+; Lymphocytes % 6 % (10-50); Monocytes % 3 % (2-9); Neutrophils % 90 % (42-76); Platelet Estimate Normal; Total Cells Counted 100
[2024-01-15 10:15] VITALS: BP 145/97; PULSE 100; RESP 20; TEMP 36.9; O2SAT 95
== END 2024-01-15 10:15 | disposition home or self-care (01) ==
PROVIDERS: Emergency Provider Emergency Medicine; PCP Internal Medicine Adolescent Medicine
DX: J44.1 Chronic obstructive pulmonary disease with (acute) exacerbation (principal); J10.1 Influenza due to other identified influenza virus with other respiratory manifestations; R06.02 Shortness of breath; R05.9 Cough, unspecified; E11.9 Type 2 diabetes mellitus without complications; I13.0 Hypertensive heart and chronic kidney disease with heart failure and stage 1 through stage 4 chronic kidney disease, or unspecified chronic kidney disease; I48.91 Unspecified atrial fibrillation; I50.23 Acute on chronic systolic (congestive) heart failure; N18.4 Chronic kidney disease, stage 4 (severe); I25.119 Atherosclerotic heart disease of native coronary artery with unspecified angina pectoris; I42.9 Cardiomyopathy, unspecified; E11.22 Type 2 diabetes mellitus with diabetic chronic kidney disease; E78.5 Hyperlipidemia, unspecified; E03.9 Hypothyroidism, unspecified; Z87.891 Personal history of nicotine dependence
CPT/HCPCS: 71045; 80053; 82803; 83880; 84484; 85007; 85025; 87636; 93005; 96374; 99285; J0456; J1642; J3475

== ENCOUNTER 2024-01-25 16:28 | Outpatient (CLI) | payer MEDICARE, MEDICAID, SELFPAY ==
--- NOTE | 2024-01-25 16:29 | MR_ITS ---
PROCEDURE INFORMATION: Exam: MR Cervical Spine Without Contrast Exam date and time: 01/25/2024 4:41 PM Age: 58 years old Clinical indication: Neck pain; Additional info: Left sideded neck pain TECHNIQUE: Imaging protocol: Magnetic resonance imaging of the cervical spine without contrast. COMPARISON: CT CERVICAL SPINE WO CON 02/21/2022 8:17 PM FINDINGS: Bones/joints: No fracture. Normal alignment. Small hemangioma in the T1 vertebral body. Spinal cord: Normal signal. No cord compression. No syrinx or mass. C2-C3: No disc herniation or spinal stenosis. Mild foraminal stenosis. C3-C4: Mild right foraminal stenosis. No disc herniation or spinal stenosis. C4-C5: No disc herniation or spinal stenosis. Mild foraminal stenosis. C5-C6: Small posterior disc bulge. No disc herniation or spinal stenosis. Mild foraminal stenosis. C6-C7: Small midline disc bulge. No disc herniation or spinal stenosis. Mild left foraminal stenosis. C7-T1: No disc herniation or spinal stenosis. No significant foraminal stenosis. Soft tissues: Unremarkable. 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 Vasculature: Expected flow voids in the vertebral arteries. IMPRESSION: 1. Mild degenerative spondylosis as above. 2. No spinal stenosis or acute findings. 3. 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
--- NOTE | 2024-01-25 16:34 | MR_ITS ---
PROCEDURE INFORMATION: Exam: MR Left Upper Extremity Joint Without Contrast; Elbow Exam date and time: 01/25/2024 5:19 PM Age: 58 years old Clinical indication: Pain; Elbow; Left; Additional info: Left arm pain TECHNIQUE: Imaging protocol: Magnetic resonance imaging of the left upper extremity without contrast. Exam focused on the elbow. COMPARISON: NM BONE SCAN WHOLE BODY 04/14/2022 11:43 AM FINDINGS: Bones/joints: No dislocation of the elbow. Motion artifact limits this study. Minimal elbow effusions. There is increased T2 signal intensity within the bone marrow of the radial and ulnar shafts, likely contributed by artifact and partial failure of fat saturation. There is increased T2 signal intensity within the bone marrow of the humeral shaft, suggestive of red marrow reconversion. The bone marrow of the elbow on T1 is normal in signal intensity. A subcentimeter cystic collection of fluid is identified ventral to the radiocapitellar joint. Ulnar (medial) collateral ligament: A decrease in caliber is visualized of the proximal ulnar collateral ligament, suggestive of partial tear. Artifact can contribute to this finding. Radial collateral ligament of the elbow: Evaluation of the radial collateral ligament is technically limited, without complete tear. Annular ligament of the radius: No visualized tear. Tendon of the biceps brachii: Tendinosis is visualized of the long of the biceps tendon. Increased T2 signal intensity is visualized within the distal biceps brachii tendon, and partial tear is suggested. Tendon of the brachialis: Tendinosis is visualized of the brachialis tendon. Tear is not definitive. Triceps tendon: There is increased tortuosity of the distal triceps tendon. Heterogeneous increased T2 signal intensity is identified distally within this tendon, consistent with tendinosis. Partial tear is considered less likely. Common flexor tendon: No visualized tear. Common extensor tendon: There is a linear focus of increased T2 signal intensity at the undersurface of the proximal attachment of the common extensor tendon, consistent with partial tear. Soft tissues: Foci of magnetic susceptibility are identified involving the left lateral abdominal wall and adjacent soft tissues, suggestive of postoperative change. IMPRESSION: 1. Partial tear of the proximal common extensor tendon. 2. A decrease in caliber is visualized of the proximal ulnar collateral ligament, suggestive of partial tear. 3. Minimal elbow effusions. 4. Tendinosis is visualized of the long of the biceps tendon, with suggested partial tear. 5. Tendinosis visualized of the brachialis and triceps tendons. There is increased tortuosity of the distal triceps tendon. 6. Additional findings described above.
== END 2024-01-25 23:59 ==
LOC: RAD 16:29
PROVIDERS: PCP Internal Medicine Adolescent Medicine; Visit Provider Internal Medicine
DX: M54.2 Cervicalgia (principal); M79.602 Pain in left arm; M25.522 Pain in left elbow
CPT/HCPCS: 72141; 73221; 76376

== ENCOUNTER 2024-01-27 12:47 | Outpatient (CLI) | payer MEDICARE, MEDICAID, SELFPAY ==
--- NOTE | 2024-01-27 12:48 | MR_ITS ---
FINAL REPORT CLINICAL HISTORY: left arm pain FINDINGS: Multiplanar MR imaging was obtained of the right forearm without contrast. Motion artifact is identified on many of the images. Artifact is seen at the level of the elbow on many sequences. The visualized bony structures are intact. There is no evidence of fracture or bone marrow edema. There is no bony mass. The musculature is intact. There is no soft tissue mass or cyst. There is no localized inflammatory process. IMPRESSION: Limited study secondary to motion artifact. No focal abnormality identified. Reviewed, Interpreted and Dictated by Pravin Crespo III, MD Transcribed by Beatriz Sauer Authenticated and [facility]
--- NOTE | 2024-01-27 12:48 | MR_ITS ---
FINAL REPORT CLINICAL HISTORY: left hand pain FINDINGS: Multiplanar MR imaging of the left hand was performed without contrast. Motion artifact on many of the images decreases the sensitivity. The bony structures are intact without evidence of fracture or bone marrow edema. There is a small cyst or enchondroma in the head of the 3rd metacarpal. The flexor and extensor tendons are intact. The musculature is intact. There is a 7 mm fluid collection medial to the 2nd metacarpophalangeal, may represent a ganglion cyst. IMPRESSION: Cyst or enchondroma in the head of the 3rd metacarpal. Possible ganglion medial to the 2nd metacarpal phalangeal. Reviewed, Interpreted and Dictated by Pravin Crespo III, MD Transcribed by Beatriz Sauer Authenticated and [facility]
== END 2024-01-27 23:59 ==
LOC: RAD 12:48
PROVIDERS: PCP Internal Medicine; Visit Provider Internal Medicine
DX: M79.602 Pain in left arm (principal)
CPT/HCPCS: 73218

== ENCOUNTER 2024-02-08 10:13 | Outpatient (CLI) | payer MEDICARE, MEDICAID, SELFPAY ==
[2024-02-08] MEDS: SODIUM CHLORIDE 0.9% 10ML FLUSH SYRINGE 10 ML IV (11:03)
[2024-02-08 15:05] LABS: PHA INR Fingerstick 2.4 (0.9-1.1)
== END 2024-02-08 11:06 | disposition home or self-care (01) ==
LOC: INF 10:14
PROVIDERS: PCP Internal Medicine Adolescent Medicine; Visit Provider Internal Medicine Medical Oncology
DX: Z79.01 Long term (current) use of anticoagulants (principal); Z45.2 Encounter for adjustment and management of vascular access device; Z51.81 Encounter for therapeutic drug level monitoring; Z95.2 Presence of prosthetic heart valve
CPT/HCPCS: 85610; 96523; 99211; G0463; J1642

== ENCOUNTER 2024-03-06 15:45 | Outpatient (CLI) | payer MEDICARE, MEDICAID, SELFPAY ==
[2024-03-06] MEDS: SODIUM CHLORIDE 0.9% 10ML FLUSH SYRINGE 10 ML IV (16:20)
[2024-03-06 16:40] LABS: Chloride 94 mmol/L (98-107); Sodium 135 mmol/L (136-145)
[2024-03-06 16:41] LABS: Potassium 3.6 mmoL/L (3.5-5.1)
[2024-03-06 16:43] LABS: Anion Gap 10.6 mEq/L (5-15); Blood Urea Nitrogen 48 mg/dl (7-17); Carbon Dioxide 34 mmol/L (22.0-30.0); Estimated Glomerular Filt Rate 33 ml/min (>60); GFR (African American) 40 ML/MIN (>60); Total Protein,Serum 7.1 g/dl (6.3-8.2)
[2024-03-06 16:44] LABS: Calcium 9.8 mg/dl (8.4-10.2); Glucose 123 mg/dl (74-100)
[2024-03-06 17:22] LABS: Intact Parathyroid Hormone 214.7 pg/mL (7.5-53.5)
[2024-03-06 17:25] LABS: T4 (Thyroxine) 9.6 ug/dl (5.53-11.0)
[2024-03-06 17:38] LABS: Thyroid Stimulating Hormone 1.91 uIU/mL (0.465-4.68)
[2024-03-08 05:48] LABS: Free Thyroxine Index 3.6 ug/dL (5.93-13.13); Triiodothryronine (T3) Uptake 38 % (23.5-40.5)
[2024-03-08 14:13] LABS: Albumin 3.9 g/dL (2.9-4.4); Alpha-1-Globulin 0.4 g/dL (0.0-0.4); Alpha-2-Globulin 0.7 g/dL (0.4-1.0); Protein, Total 7.1 g/dL (6.0-8.5)
[2024-03-08 18:25] LABS: Immunoglobulin A, Qn 173 mg/dL (87-352); Immunoglobulin G, Qn 977 mg/dL (586-1602); Immunoglobulin M, Qn 67 mg/dL (26-217)
[2024-03-09 13:29] LABS: Albumin, U 25.7 % (.); Alpha-1-Globulin, U 10.4 % (.); Alpha-2-Globulin, U 23.8 % (.); Beta Globulin, U 26.2 % (.); Gamma Globulin, U 13.9 % (.); M-Spike, % Not Observed % (Not Observed); Protein,Total,Urine 4.1 mg/dL (Not Estab.)
[2024-03-10 08:32] LABS: PDF SCANNED IMAGE
[2024-03-10 08:33] LABS: Free Kappa Lt Chains 83.8; Free Lambda Lt Chains 33.4
[2024-03-10 08:51] LABS: PDF: SCANNED IMAGE
[2024-03-14 08:33] LABS: 1,25 Dihydroxy Vitamin D 44 pg/mL (.); 1,25-Dihydroxy, Vitamin D-2 <10 pg/mL (.); 1,25-Dihydroxy, Vitamin D-3 34 pg/mL (.)
== END 2024-03-06 23:59 | disposition home or self-care (01) ==
PROVIDERS: PCP Internal Medicine Adolescent Medicine; Visit Provider Internal Medicine
DX: R06.09 Other forms of dyspnea (principal); I42.8 Other cardiomyopathies; I50.32 Chronic diastolic (congestive) heart failure; I50.23 Acute on chronic systolic (congestive) heart failure; M79.602 Pain in left arm; E78.5 Hyperlipidemia, unspecified; I10 Essential (primary) hypertension; K21.9 Gastro-esophageal reflux disease without esophagitis; J44.9 Chronic obstructive pulmonary disease, unspecified; D64.9 Anemia, unspecified; E66.9 Obesity, unspecified; Z68.32 Body mass index [BMI] 32.0-32.9, adult; E55.9 Vitamin D deficiency, unspecified
CPT/HCPCS: 36591; 80048; 82652; 82784; 83883; 83970; 84155; 84156; 84165; 84166; 84436; 84443; 84479; 86334; 86335; J1642

== ENCOUNTER 2024-03-08 09:24 | Outpatient (CLI) | payer MEDICARE, MEDICAID, SELFPAY ==
[2024-03-08] MEDS: SODIUM CHLORIDE 0.9% 10ML FLUSH SYRINGE 10 ML IV (09:40)
[2024-03-08 10:12] LABS: Basophils # 0.1 K/mm3 (0-0.2); Basophils % 0.8 % (0.1-2.0); Eosinophils # 0.2 K/mm3 (0.0-0.4); Eosinophils % 2.5 % (0.1-12.0); Lymphocytes # 0.6 K/mm3 (0.7-4.5); Lymphocytes % 8.7 % (10-50); Mean Corpuscular HGB Conc 29.1 g/dL (31.8-35.4); Mean Corpuscular Hemoglobin 21.2 pg (27.0-31.2); Mean Corpuscular Volume 72.9 fl (81-99); Mean Platelet Volume 7.9 fl (7.4-10.4); Monocytes # 0.4 K/mm3 (0.1-1.0); Monocytes % 5.6 % (1.7-9.3); Neutrophils % 82.5 % (37.0-80.0); Platelet Count 312 K/mm3 (142-424); Red Blood Count 2.81 M/mm3 (4.20-5.40); White Blood Count 7.3 K/mm3 (4.8-10.8)
[2024-03-08 10:23] LABS: INR 3.11 (0.9-1.1); Prothrombin Time 31.2 seconds (10.1-12.5)
[2024-03-08 10:29] LABS: Hematocrit 20.5 % (37.0-47.0)
[2024-03-08 11:31] LABS: Calcium 9.5 mg/dl (8.4-10.2)
[2024-03-14 14:46] LABS: Albumin, U 46.1 % (.); Alpha-1-Globulin, U 9.6 % (.); Alpha-2-Globulin, U 13.8 % (.); Beta Globulin, U 19.7 % (.); Gamma Globulin, U 10.7 % (.); M-Spike, % Not Observed % (Not Observed); Prot,24hr calculated 273 mg/24 hr (30-150); Protein,Total,Urine 9.1 mg/dL (Not Estab.)
[2024-03-16 09:09] LABS: PDF: SCANNED IMAGE
== END 2024-03-08 09:45 | disposition home or self-care (01) ==
LOC: ACC 09:25
PROVIDERS: Internal Medicine; PCP Internal Medicine Adolescent Medicine; Visit Provider Internal Medicine Adolescent Medicine
DX: M79.602 Pain in left arm (principal); R06.09 Other forms of dyspnea; I10 Essential (primary) hypertension; E78.5 Hyperlipidemia, unspecified; K21.9 Gastro-esophageal reflux disease without esophagitis; J44.9 Chronic obstructive pulmonary disease, unspecified; I50.32 Chronic diastolic (congestive) heart failure; D64.9 Anemia, unspecified; I50.23 Acute on chronic systolic (congestive) heart failure; I42.9 Cardiomyopathy, unspecified; N18.32 Chronic kidney disease, stage 3b; Z79.01 Long term (current) use of anticoagulants; Z95.2 Presence of prosthetic heart valve; Z51.81 Encounter for therapeutic drug level monitoring
CPT/HCPCS: 36591; 82310; 84156; 84166; 85025; 85610; J1642

== ENCOUNTER 2024-03-09 08:25 | Outpatient (CLI) | payer MEDICARE, MEDICAID, SELFPAY ==
[2024-03-09] VITALS (20 sets, daily range): BP systolic 81–135; BP diastolic 36–88; PULSE 80–101; RESP 15–17; TEMP 36.4–36.8; O2SAT 94–100; BMI 33.3
[2024-03-09] MEDS: diphenhydrAMINE 25MG CAPSULE 25 MG PO (09:25)
[2024-03-09] MEDS: 0.9 % SODIUM CHLORIDE 250 ML 25 ML IV (09:25)
[2024-03-09] MEDS: ACETAMINOPHEN 325MG TAB 650 MG PO (09:25)
--- NOTE | 2024-03-09 10:52 | PC.NURSE ---
1050-BLOOD STARTED TRANSFUSING AT 100 ML/HR AT THIS TIME.
--- NOTE | 2024-03-09 11:44 | PC.NURSE ---
0925-PREMEDICATED WITH TYLENOL 650MG PO AND BENADRYL 25MG PO AT THIS TIME.
--- NOTE | 2024-03-09 12:14 | PC.NURSE ---
1150-INCREASED RATE TO 200 ML/HR AT THIS TIME.
--- NOTE | 2024-03-09 13:35 | PC.NURSE ---
1330-BLOOD TRANSFUSION STARTED AT 100 ML/HR AT THIS TIME.
--- NOTE | 2024-03-09 14:21 | PC.NURSE ---
1400-INCREASED RATE TO 150 ML/HR AT THIS TIME.
--- NOTE | 2024-03-09 14:53 | PC.NURSE ---
1430-INCREASED RATE TO 200 ML/HR AT THIS TIME.
[2024-03-09] MEDS: SODIUM CHLORIDE 0.9% 10ML FLUSH SYRINGE 10 ML IV (15:50)
== END 2024-03-09 16:43 | disposition home or self-care (01) ==
LOC: INF 08:26
PROVIDERS: PCP Internal Medicine Adolescent Medicine; Visit Provider Internal Medicine
DX: D64.9 Anemia, unspecified (principal); Z79.01 Long term (current) use of anticoagulants; Z95.2 Presence of prosthetic heart valve
CPT/HCPCS: 36430; 86850; J1642; P9016

== ENCOUNTER 2024-03-10 06:43 | Outpatient (CLI) | payer MEDICARE, MEDICAID, SELFPAY | END 2024-03-10 23:59 | disposition home or self-care (01) | LOC: LAB.DROPOF 06:44 | PROVIDERS: PCP Internal Medicine; Visit Provider Internal Medicine | DX: Z45.2 Encounter for adjustment and management of vascular access device (principal) | CPT/HCPCS: J1642 ==

== ENCOUNTER 2024-03-13 10:15 | Outpatient (CLI) | payer MEDICARE, MEDICAID, SELFPAY ==
[2024-03-13] VITALS (10 sets, daily range): BP systolic 109–151; BP diastolic 55–90; PULSE 79–93; RESP 18; TEMP 36.7–36.9; O2SAT 95–97; BMI 32.8
[2024-03-13 10:37] LABS: Basophils # 0.1 K/mm3 (0-0.2); Eosinophils # 0.3 K/mm3 (0.0-0.4); Hematocrit 23.9 % (37.0-47.0); Lymphocytes # 0.5 K/mm3 (0.7-4.5); Mean Corpuscular Hemoglobin 21.5 pg (27.0-31.2); Monocytes # 0.4 K/mm3 (0.1-1.0)
[2024-03-13 10:45] LABS: Basophils % 0.8 % (0.1-2.0); Eosinophils % 3.6 % (0.1-12.0); Lymphocytes % 7.1 % (10-50); Mean Corpuscular HGB Conc 28.9 g/dL (31.8-35.4); Mean Corpuscular Volume 74.3 fl (81-99); Mean Platelet Volume 9.4 fl (7.4-10.4); Monocytes % 5.1 % (1.7-9.3); Neutrophils # 5.7 K/mm3 (1.8-7.8); Neutrophils % 83.4 % (37.0-80.0); Platelet Count 292 K/mm3 (142-424); Red Blood Count 3.22 M/mm3 (4.20-5.40); Red Cell Distribution Width 20.6 % (11.5-17.5); White Blood Count 6.9 K/mm3 (4.8-10.8)
[2024-03-13 10:48] LABS: Hemoglobin 6.9 g/dL (12.2-16.2)
[2024-03-13 10:51] LABS: Chloride 97 mmol/L (98-107); Potassium 4.2 mmoL/L (3.5-5.1); Sodium 136 mmol/L (136-145)
[2024-03-13 10:53] LABS: Blood Urea Nitrogen 37 mg/dl (7-17); Creatinine Clearance Estimated 68 mL/min (50-200)
[2024-03-13 10:54] LABS: Alanine Aminotransferase 18 U/L (12-78); Albumin Level 4.1 g/dl (3.5-5.0); Albumin/Globulin Ratio 1.5 (1.1-1.8); Alkaline Phosphatase 96 U/L (38-126); Anion Gap 11.2 mEq/L (5-15); Aspartate Amino Transferase 29 U/L (14-36); Bilirubin,Total 1.2 mg/dl (0.2-1.3); Calcium 9.8 mg/dl (8.4-10.2); Carbon Dioxide 32 mmol/L (22.0-30.0); Estimated Glomerular Filt Rate 46 ml/min (>60); GFR (African American) 55 ML/MIN (>60); Globulin 2.8 g/dL (1.3-3.2); Glucose 259 mg/dl (74-100); Iron 36 ug/dL (37-170); Total Protein,Serum 6.9 g/dl (6.3-8.2)
[2024-03-13 11:04] LABS: Total Iron Binding Capacity 433 ug/dL (265-497)
[2024-03-13] MEDS: ACETAMINOPHEN 325MG TAB 650 MG (11:05)
[2024-03-13] MEDS: diphenhydrAMINE 25MG CAPSULE 25 MG PO (11:05)
[2024-03-13 11:32] LABS: Ferritin 6.69 ng/ml (11.1-264)
[2024-03-13] MEDS: 0.9 % SODIUM CHLORIDE 250 ML 25 ML IV (11:49)
== END 2024-03-13 14:53 | disposition home or self-care (01) ==
LOC: INF 10:16
PROVIDERS: Internal Medicine Medical Oncology; PCP Internal Medicine Adolescent Medicine; Visit Provider Internal Medicine
DX: D64.9 Anemia, unspecified (principal)
CPT/HCPCS: 36430; 80053; 82728; 83540; 83550; 85025; 86850; J1642; P9016

== ENCOUNTER 2024-03-14 11:20 | Outpatient (CLI) | payer MEDICARE, MEDICAID, SELFPAY ==
[2024-03-14] MEDS: FERRIC CARBOXYMALTOSE 750 MG in 0.9 % SODIUM CHLORIDE 250 ML 530 MG IV (12:18)
[2024-03-14 12:19] VITALS: BP 116/69; PULSE 73; RESP 18; TEMP 36.6; O2SAT 98
[2024-03-14] MEDS: SODIUM CHLORIDE 0.9% 10ML FLUSH SYRINGE 10 ML IV (12:19)
[2024-03-14] MEDS: SODIUM CHLORIDE 0.9% 50ML BAG 50 ML IV (12:19)
[2024-03-14 13:16] VITALS: BP 108/63; PULSE 83; RESP 18; O2SAT 98
== END 2024-03-14 13:20 | disposition home or self-care (01) ==
LOC: INF 11:21
PROVIDERS: PCP Internal Medicine Adolescent Medicine; Visit Provider Internal Medicine
DX: D50.9 Iron deficiency anemia, unspecified (principal)
CPT/HCPCS: 96365; J1439; J1642

== ENCOUNTER 2024-03-17 07:51 | Outpatient (CLI) | payer MEDICARE, MEDICAID, SELFPAY ==
[2024-03-17] MEDS: SODIUM CHLORIDE 0.9% 10ML SYR (RAD ONLY) 10 ML IV (08:00)
[2024-03-17] MEDS: PYROPHOSPHATE CARDIAC (PYP);1 DOSE VIAL IV (11:52)
== END 2024-03-17 23:59 | disposition home or self-care (01) ==
LOC: RAD 07:51
PROVIDERS: PCP Internal Medicine Adolescent Medicine; Visit Provider Internal Medicine
DX: M79.602 Pain in left arm (principal); R06.09 Other forms of dyspnea; I10 Essential (primary) hypertension; E78.5 Hyperlipidemia, unspecified; K21.9 Gastro-esophageal reflux disease without esophagitis; J44.9 Chronic obstructive pulmonary disease, unspecified; I50.32 Chronic diastolic (congestive) heart failure; D64.9 Anemia, unspecified; I50.23 Acute on chronic systolic (congestive) heart failure; I42.9 Cardiomyopathy, unspecified
CPT/HCPCS: 78803

== ENCOUNTER 2024-03-21 09:52 | Outpatient (CLI) | payer MEDICARE, MEDICAID, SELFPAY ==
[2024-03-21 10:41] VITALS: BMI 32.9
[2024-03-21] MEDS: SODIUM CHLORIDE 0.9% 50ML BAG 50 ML IV (10:56)
[2024-03-21 10:57] VITALS: BP 134/80; PULSE 86; RESP 20; TEMP 36.7; O2SAT 99
[2024-03-21] MEDS: FERRIC CARBOXYMALTOSE 750 MG in 0.9 % SODIUM CHLORIDE 250 ML 530 MG IV (10:57)
[2024-03-21] MEDS: SODIUM CHLORIDE 0.9% 10ML FLUSH SYRINGE 10 ML IV (10:57)
[2024-03-21 11:00] LABS: Basophils % 0.5 % (0.1-2.0); Eosinophils # 0.2 K/mm3 (0.0-0.4); Eosinophils % 2.9 % (0.1-12.0); Hematocrit 26.7 % (37.0-47.0); Hemoglobin 7.9 g/dL (12.2-16.2); Lymphocytes # 0.5 K/mm3 (0.7-4.5); Lymphocytes % 6.5 % (10-50); Mean Corpuscular HGB Conc 29.6 g/dL (31.8-35.4); Mean Corpuscular Hemoglobin 24.5 pg (27.0-31.2); Mean Corpuscular Volume 82.7 fl (81-99); Mean Platelet Volume 9.7 fl (7.4-10.4); Monocytes # 0.4 K/mm3 (0.1-1.0); Monocytes % 4.7 % (1.7-9.3); Neutrophils # 6.5 K/mm3 (1.8-7.8); Neutrophils % 85.5 % (37.0-80.0); Platelet Count 242 K/mm3 (142-424); Red Blood Count 3.23 M/mm3 (4.20-5.40); White Blood Count 7.6 K/mm3 (4.8-10.8)
[2024-03-21 11:02] LABS: MANUAL DIFFERENTIAL MANUAL DIFFERENTIAL (MANUAL DIFF)
[2024-03-21 11:09] LABS: Chloride 97 mmol/L (98-107)
[2024-03-21 11:10] LABS: Potassium 4.3 mmoL/L (3.5-5.1); Sodium 136 mmol/L (136-145)
[2024-03-21 11:12] LABS: Blood Urea Nitrogen 39 mg/dl (7-17); Creatinine Clearance Estimated 62 mL/min (50-200); Estimated Glomerular Filt Rate 42 ml/min (>60); GFR (African American) 50 ML/MIN (>60)
[2024-03-21 11:13] LABS: Alanine Aminotransferase 21 U/L (12-78); Albumin Level 4.2 g/dl (3.5-5.0); Albumin/Globulin Ratio 1.7 (1.1-1.8); Alkaline Phosphatase 105 U/L (38-126); Anion Gap 11.3 mEq/L (5-15); Aspartate Amino Transferase 28 U/L (14-36); Bilirubin,Total 0.9 mg/dl (0.2-1.3); Calcium 9.7 mg/dl (8.4-10.2); Carbon Dioxide 32 mmol/L (22.0-30.0); Globulin 2.5 g/dL (1.3-3.2); Glucose 321 mg/dl (74-100); Total Protein,Serum 6.7 g/dl (6.3-8.2)
[2024-03-21 11:18] LABS: PHA INR Fingerstick 2.9 (0.9-1.1)
[2024-03-21 11:25] LABS: Anisocytosis 1+; Eosinophils % 1 % (0-3); Hypochromasia 1+; Lymphocytes % 4 % (10-50); Microcytosis 1+; Monocytes % 6 % (2-9); Neutrophils % 89 % (42-76); Ovalocytes 1+; Platelet Estimate Normal; Total Cells Counted 100
[2024-03-21 11:40] VITALS: BP 129/71; PULSE 81; RESP 20; O2SAT 99
== END 2024-03-21 11:45 ==
LOC: INF 09:54
PROVIDERS: PCP Internal Medicine Adolescent Medicine; Visit Provider Internal Medicine Medical Oncology
DX: D50.9 Iron deficiency anemia, unspecified (principal); Z79.01 Long term (current) use of anticoagulants; Z45.2 Encounter for adjustment and management of vascular access device; Z79.899 Other long term (current) drug therapy
CPT/HCPCS: 80053; 85007; 85025; 85610; 96365; 99211; G0463; J1439; J1642

== ENCOUNTER 2024-03-28 20:33 | Observation (INO) | payer MEDICARE, MEDICAID, SELFPAY ==
[2024-03-28 20:34] VITALS: BP 133/69; PULSE 95; RESP 22; TEMP 36.6; O2SAT 100; BMI 34.4
--- NOTE | 2024-03-28 20:34 | ECG_ITS ---
APPROVED REPORT Exam: Resting ECG HR:97 bpm ECG Measurements Heart Rate 97 AXES QRSd 109 QRS 106 QT 382 T 76 QTc 437 Conclusion ATRIAL FIBRILLATION WITH ABERRANT CONDUCTION OR VENTRICULAR PREMATURE COMPLEXES INCOMPLETE RIGHT BUNDLE BRANCH BLOCK [90+ ms QRS DURATION, TERMINAL R IN V1/V2, 40+ ms S IN I/aVL/V4/V5/V6] POSSIBLE RIGHT VENTRICULAR HYPERTROPHY [SOME/ALL OF: PROMINENT R IN V1, LATE TRANSITION, RAD, ADELA, SSS] ABNORMAL ECG UNCONFIRMED REPORT Electronically signed by : JOANIE ZAPATA, 03/29/2024 05:29:05
--- NOTE | 2024-03-28 20:35 | XR_ITS ---
PROCEDURE INFORMATION: Exam: XR Chest Exam date and time: 03/28/2024 8:43 PM Age: 59 years old Clinical indication: Shortness of breath; Additional info: Cp SOA TECHNIQUE: Imaging protocol: Radiologic exam of the chest. Views: 1 view. COMPARISON: CR XR CHEST PORTABLE 01/15/2024 8:02 AM FINDINGS: Tubes, catheters and devices: Right-sided MediPort catheter identified with tip SVC RA junction. Tip is in good position. Lungs: The lungs are clear. Pleural spaces: Unremarkable. No pleural effusion. No pneumothorax. Heart/Mediastinum: Severe cardiomegaly. Unchanged. Bones/joints: Median sternotomy wires are identified. IMPRESSION: 1. The lungs are clear. 2. Severe cardiomegaly. Unchanged.
--- NOTE | 2024-03-28 20:35 | [facility].EDCP ---
Discharge Plan Disposition Patient Disposition: Admitted Condition: Fair Clinical Impressions Clinical Impression: Supratherapeutic INR CHF (congestive heart failure) Qualifiers: Heart failure type: diastolic Heart failure chronicity: chronic Qualified Code(s): I50.32 - Chronic diastolic (congestive) heart failure Discharge ED Provider: Paolo Johnson HPI <BEATRIS Landaverde - Last Filed: 03/28/24 22:26> General Chief Complaint: Shortness of Breath/Dyspnea Stated Complaint: Chest pain Time Seen by Provider: 03/28/24 20:34 History of Present Illness HPI narrative: Patient presents for shortness of breath and chest pressure/dyspnea. Patient has multiple significant medical comorbidities including pulmonary hypertension, dilated cardiomyopathy, COPD, CHF, hyperlipidemia, hypertension, GERD, morbid obesity, and hemolytic anemia requiring blood transfusions. Patient most recently received a blood transfusion last week however she reports increasing chest pressure and feeling like I have significant ascites. Patient does not have a known history of cirrhosis according to her. She denies chest pain fever chills hemoptysis hematochezia melena hematemesis hematuria. Related Data Home Medications Medication Instructions Recorded Confirmed aspirin 81 mg tablet,delayed 81 mg PO DAILY 12/01/17 03/28/24 release (Adult Low Dose Aspirin) oxycodone-acetaminophen 10 mg-325 1 tab PO QIDP PRN Moderate Pain 05/23/18 03/28/24 mg tablet (Percocet) alprazolam 0.5 mg tablet (Xanax) 0.5 mg PO TIDP PRN Anxiety 11/29/19 03/29/24 levothyroxine 25 mcg tablet 25 mcg PO DAILY 06/05/21 03/29/24 insulin glargine 100 50 units SQ DAILY 02/22/22 03/28/24 unit-lixisenatide 33 mcg/mL subcutaneous pen febuxostat 40 mg tablet 40 mg PO DAILY 02/09/23 03/28/24 potassium chloride 20 mEq 20 meq PO BID 04/15/23 03/29/24 tablet,extended release(part/cryst) Lactobacills gasseri-Bifidobac 1 cap PO DAILY 10/30/23 03/28/24 bifidum,longum 1.5 billion cell capsule (Probiotic Colon Support) bisacodyl 5 mg tablet,delayed 5 mg PO DIRECTED PRN 10/30/23 03/28/24 release (Gentle Laxative Constipation (bisacodyl)) calcitriol 0.25 mcg capsule 0.25 mcg PO DAILY 10/30/23 03/28/24 warfarin 4 mg tablet 4 mg PO SUTUWETHSA 10/31/23 03/29/24 warfarin 4 mg tablet 2 mg PO MOFR 11/25/23 03/29/24 duloxetine 60 mg capsule,delayed 60 mg PO HS 03/06/24 03/28/24 release spironolactone 25 mg tablet 25 mg PO BID 03/09/24 03/28/24 albuterol 90 mcg/actuation aerosol 90 mcg inhalation Q4HP PRN soa 03/28/24 03/28/24 inhaler levalbuterol HCl 1.25 mg/3 mL 1.25 mg inhalation Q6HP PRN 03/28/24 03/28/24 solution for nebulization Shortness Of Breath bumetanide 2 mg tablet 2 mg PO BID 03/29/24 03/28/24 dexlansoprazole 30 mg 30 mg PO DAILY 03/29/24 03/29/24 capsule,biphase delayed release (Dexilant) Previous Rx's Medication Instructions Recorded metoprolol succinate 100 mg 100 mg PO BID 30 days #60 tabs 11/29/23 tablet,extended release 24 hr Allergies Allergy/AdvReac Type Severity Reaction Status Date / Time codeine [CODEINE] Allergy Unknown nausea, Verified 03/21/24 12:35 swelling Corticosteroids Allergy Unknown Unknown Verified 03/21/24 12:35 (Glucocorticoids) allergy [CORTICOSTEROIDS reaction (GLUCOCORTICOIDS)] rosuvastatin [From CRESTOR] Allergy Unknown Unknown Verified 03/21/24 12:35 allergy reaction theophylline [From DAVID-DUR] Allergy Unknown Unknown Verified 03/21/24 12:35 allergy reaction Iodinated Contrast Media AdvReac Severe shuts Verified 03/21/24 12:35 [IODINATED CONTRAST- ORAL kidneys AND IV DYE] down and bleeding buprenorphine [From BUPRENEX] AdvReac Intermediate Nausea Verified 03/21/24 12:35 levofloxacin [From Levaquin] AdvReac Verified 03/29/24 03:25 lisinopril AdvReac Cough Verified 03/21/24 12:35 prednisone AdvReac Unknown Verified 03/21/24 12:35 allergy reaction sacubitril [From Entresto] AdvReac Hypotension Verified 03/21/24 12:35 valsartan [From Entresto] AdvReac Hypotension Verified 03/21/24 12:35 PFSH <BEATRIS Landaverde - Last Filed: 03/28/24 22:26> [facility] Disclaimer: The information contained in this section may have been updated after the patient was seen, as this information can be updated by other users. Medical History (Updated 03/29/24 @ 12:00 by Leslie Olmos RN) Atrial fibrillation, chronic COPD exacerbation CHF exacerbation Anemia Systolic CHF Typical angina Dyspnea Rib fracture Blood transfusion reaction Autoimmune hemolytic anemia Arthritis Hernia Sinus problem Rheumatic heart disease Hypothyroidism Polyarthralgia Pulmonary edema HLD (hyperlipidemia) HTN (hypertension) CAD (coronary artery disease) DM type 2 (diabetes mellitus, type 2) DVT (deep venous thrombosis) Cardiomyopathy Arrhythmia Liver disease Thyroid disease Valvular heart disease Hypertension Hyperlipidemia GERD (gastroesophageal reflux disease) COPD (chronic obstructive pulmonary disease) Class 1 obesity CKD (chronic kidney disease) stage 3, GFR 30-59 ml/min Acute on chronic HFrEF (heart failure with reduced ejection fraction) Coronary artery disease Congestive heart failure, NYHA class III NYHA class 3 acute on chronic systolic heart failure Diabetes mellitus Hypertensive heart disease CHF (congestive heart failure) Diastolic heart failure Tricuspid valve regurgitation prison current use of anticoagulants with INR goal of 2.5-3.5 Surgical History (Updated 03/29/24 @ 12:00 by Leslie Olmos RN) Mitral valve replaced History of colon resection H/O tubal ligation History of angioplasty History of renal stent History of ureteroscopy History of tubal ligation History of hernia repair History of cardiac catheterization History of mitral valve replacement with mechanical valve Family History Other Breast cancer COPD (chronic obstructive pulmonary disease) Colon cancer Family history of acute heart failure Family history of hyperlipidemia Family history of hypertension Family history of myocardial infarction Hypertension Stroke Social History (Updated 03/21/24 @ 12:34 by Marcos Eagle RN) Smoking Status: Former smoker tobacco type: cigarettes packs per day: 1 smoking status stop date: 01/09/2006 quit status: quit date established second hand exposure: Yes alcohol intake: never substance use type: denies use current occupational status: retired and disabled Travel in the last 8 weeks: None adopted: No caregiver/support person: No foster care: No household members: significant other housing: house lives independently: Yes marital status: life partner education level: college service: No assisted: No current occupational exposures/hazards: No sexually active: Yes how many partners: 1 are you practicing safe sex: Yes diet: diabetic well-balanced diet: about half the time caffeine: No eating out: rarely or never during the past year weight has: remained stable bhavya/hinduism: Anabaptist special bhavya needs: No agree to transfusion: Yes helmet use: No water heater temp set < 120 deg: Yes working smoke detector in home: Yes fire extinguisher in home: Yes carbon monox detector in home: Yes firearms in home: No do you feel safe at home: Yes victim of physical abuse: No victim of emotional abuse: No victim of sexual abuse: No would you like helpful sources: No <BEATRIS Landaverde - Last Filed: 03/28/24 22:26> ROS Obtained: Yes Systems reviewed as appropriate & no additional complaints except as documented Physical Exam <BEATRIS Landaverde - Last Filed: 03/28/24 22:26> General General appearance: alert and in no apparent distress Head Head exam: atraumatic Eye Eye exam: Present normal appearance ENT ENT exam: Present normal exam Neck Neck exam: Present normal inspection and full ROM Chest Chest inspection: Present normal inspection and symmetric chest wall rise Respiratory Respiratory exam: Absent normal lung sounds bilaterally (Patient has diminished breath sounds at the bases however I do not hear adventitious sounds.) or accessory muscle use Cardiovascular Cardiovascular exam: Present irregular rhythm (Patient's rhythm is irregularly irregular at a rate of 90 on the bedside monitor) and clicks; Absent normal heart sounds Abdominal Exam Abdominal exam: Present soft (Significantly obese but also distended and taut), distention, tenderness and normal bowel sounds; Absent guarding, rebound or rigidity Extremities Exam Extremities exam: Present normal inspection, full ROM and edema (+1 bilateral lower extremity edema) Back Exam Back exam: Present normal inspection and full ROM Neurological Exam Neurological exam: Present alert HEART Score <BEATRIS Landaverde Last Filed: 03/28/24 22:26> HEART Score HEART Score assessment performed?: Yes History (anamnesis): Moderately suspicious ECG: Non-specific disturbance Age: 45-65 years Risk factors: Atherosclerosis history Troponin: </= normal limit HEART Score: 5 <Paolo Johnson MD - Last Filed: 03/29/24 15:04> HEART Score HEART Score: 5 Critical Care <BEATRIS Landaverde - Last Filed: 03/28/24 22:26> Critical Care Time Critical Care Time: No <Paolo Johnson MD - Last Filed: 03/29/24 15:04> Critical Care Time Critical Care Time: Yes (cardiac) Attestation: On 03/28/24, the high probability of a clinically significant, sudden or life threatening deterioration of the following system(s) required my full and direct attention, intervention and personal management. The time I documented below is in addition to time spent performing reported procedures but includes the following listed in this critical care notation. Total Time Total Critical Care Time: 45 Medical Decision Making <BEATRIS Landaverde - Last Filed: 03/28/24 22:26> Medical Records Medical records reviewed: Yes I reviewed the patient's medical records. Jeancarlos Inquiry Pt receiving controlled substance: No Vital Signs Vital Signs: 03/28/24 20:34 03/28/24 21:01 03/28/24 21:30 Temperature 97.9 F Temperature Source Oral Pulse Rate 89 89 Pulse Rate [Left] 95 H Respiratory Rate 22 18 Blood Pressure 132/81 111/51 L Blood Pressure [Right Arm] 133/69 Blood Pressure Mean [Right Arm] 90 Blood Pressure Source [Right Arm] Automatic Cuff Blood Pressure Position Blood Pressure Position [Right Arm] Sitting 02 Sat by Pulse Oximetry 100 93 L 95 Oxygen Delivery Method Room Air Room Air 03/28/24 22:00 03/28/24 22:06 Temperature 97.9 F Temperature Source Oral Pulse Rate 89 94 H Pulse Rate [Left] Respiratory Rate 14 18 Blood Pressure 128/65 126/65 Blood Pressure [Right Arm] Blood Pressure Mean [Right Arm] Blood Pressure Source [Right Arm] Blood Pressure Position Supine Blood Pressure Position [Right Arm] 02 Sat by Pulse Oximetry 99 Oxygen Delivery Method Room Air Nasal Cannula Lab Data Lab results reviewed: Yes I reviewed the patient's lab results. Labs: Lab Results 03/28/24 20:49: WBC 6.6, RBC 3.15 L, Hgb 8.4 L, Hct 27.7 L, MCV 87.8, MCH 26.7 L, MCHC 30.4 L, RDW 28.9 H*, Plt Count 257, MPV 7.7, Neut % (Auto) 84.6 H, Lymph % (Auto) 7.2 L, [place] % (Auto) 4.9, Eos % (Auto) 2.8, Baso % (Auto) 0.5, Neut # (Auto) 5.6, Lymph # (Auto) 0.5 L, [place] # (Auto) 0.3, Eos # (Auto) 0.2, Baso # (Auto) 0.0, PT 62.2 H, INR 6.51 H, Sodium 136, Potassium 3.7, Chloride 98, Carbon Dioxide 30, Anion Gap 11.7, BUN 23 H, Creatinine 1.20 H, Estimated Creat Clear 71, Estimated GFR 46 L, Est GFR ( Amer) 55 L, Glucose 245 H, Calcium 9.2, Magnesium 1.6, Total Bilirubin 1.0, AST 27, ALT 18, Alkaline Phosphatase 106, Troponin I < 0.01, NT-Pro-B Natriuret Pep 1280 H, Total Protein 6.6, Albumin 4.0, Globulin 2.6, Albumin/Globulin Ratio 1.5, Lipase 99 03/28/24 21:59: Blood Type O Positive, Antibody Screen Negative 03/29/24 06:30 03/29/24 06:30 Response Orders (Tests/Meds): ED MEDICATIONS Discontinued Medications Generic Name Dose Route Start Last Admin Trade Name Freq PRN Reason Stop Dose Admin Acetaminophen 650 mg 03/28/24 21:47 Acetaminophen 325mg Tab PO 04/27/24 21:46 Q4HP PRN Fever or Mild Pain (1-3) Alprazolam 0.5 mg 03/29/24 00:52 Alprazolam 0.5mg Tablet PO 04/28/24 00:51 TIDP PRN Anxiety Aspirin 324 mg 03/28/24 20:35 03/28/24 20:45 Aspirin 81mg Chewable Tablet PO 03/28/24 20:36 324 mg ONCE ONE Administration Aspirin 81 mg 03/29/24 09:00 03/29/24 08:50 Aspirin Ec 81mg Tablet PO 04/28/24 08:59 81 mg DAILY JOEY Administration Bumetanide 1 mg 03/28/24 21:49 03/28/24 21:56 Bumetanide 1mg/4ml Vial IV 03/28/24 21:50 1 mg ONCE ONE Administration Bumetanide 2 mg 03/29/24 01:30 03/29/24 08:50 Bumetanide 1 Mg Tablet PO 04/28/24 01:29 2 mg BIDL JOEY Administration Calcitriol 0.25 mcg 03/29/24 09:00 03/29/24 08:50 Calcitriol 0.25mcg Capsule PO 04/28/24 08:59 0.25 mcg DAILY JOEY Administration Duloxetine HCl 60 mg 03/29/24 01:30 03/29/24 02:18 Duloxetine 30mg Capsule. PO 04/28/24 01:29 Not Given HS JOEY Insulin Human Lispro 0 unit 03/29/24 06:00 03/29/24 11:36 Humalog 100 Units/Ml 3ml Vial (Ssi) SQ 04/28/24 05:59 5 unit ACHS JOEY Administration Protocol Levalbuterol HCl 1.25 mg 03/29/24 00:52 Levalbuterol 1.25mg/3ml Neb IH 04/28/24 00:51 Q6HP PRN Shortness Of Breath Levothyroxine Sodium 25 mcg 03/29/24 07:00 03/29/24 06:56 Levothyroxine 25mcg (0.025mg) Tab PO 04/28/24 06:59 25 mcg AM JOEY Administration Levothyroxine Sodium 25 mcg 03/29/24 07:23 Levothyroxine 25mcg (0.025mg) Tab PO 04/28/24 06:59 DAILYDM JOEY Metoprolol Succinate 100 mg 03/29/24 09:00 03/29/24 08:50 Metoprolol Succinate Xl 100mg Tablet PO 04/28/24 08:59 100 mg BID JOEY Administration Miscellaneous 1 each 03/28/24 21:50 03/29/24 13:19 Pharmacy Consult Request NOTAPPLIC 03/28/24 21:51 Not Given CONSULT PHARMACY ONE Morphine Sulfate 2 mg 03/28/24 21:47 03/28/24 23:56 Morphine 2mg/Ml Syringe IV 04/27/24 21:46 2 mg Q2HP PRN Administration Severe Pain (7-10) Nicotine 21 mg 03/28/24 21:47 Nicotine 21mg/24hr Patch TD 04/27/24 21:46 DAILYP PRN Nicotine Cravings Non-Formulary Medication 50 units 03/29/24 09:00 03/29/24 08:52 Insulin Glargine-Lixisenatide SQ 04/28/24 08:59 Not Given DAILY JOEY Non-Formulary Medication 40 mg 03/29/24 09:00 03/29/24 13:10 Febuxostat PO 04/28/24 08:59 Not Given DAILY JOEY Ondansetron HCl 4 mg 03/28/24 21:47 Ondansetron 4mg/2ml Vial IV 04/27/24 21:46 Q8HP PRN Nausea Oxycodone/Acetaminophen 1 each 03/29/24 00:52 03/29/24 07:02 Oxycodone 10mg W/Apap 325mg Tablet PO 04/28/24 00:51 1 each QIDP PRN Administration Moderate Pain (4-6) Pantoprazole Sodium 40 mg 03/29/24 21:00 Pantoprazole 40mg Tablet PO 04/28/24 20:59 HS JOEY Potassium Chloride 10 meq 03/29/24 09:00 03/29/24 08:50 Potassium Chloride 10meq Tablet.Er PO 04/28/24 08:59 10 meq BID JOEY Administration Spironolactone 25 mg 03/29/24 09:00 03/29/24 08:50 Spironolactone 25mg Tablet PO 04/28/24 08:59 25 mg BIDL JOEY Administration Warfarin Sodium 2 mg 03/31/24 11:00 Warfarin 2mg Tablet PO 04/30/24 10:59 [email or web address] [facility] Warfarin Sodium 4 mg 03/29/24 11:00 03/29/24 11:33 Warfarin 2mg Tablet PO 04/28/24 10:59 4 mg [email or web address] [facility] Administration ORDERS Category Date Time Status Type and Screen Stat BBK 03/28/24 21:59 Completed Cardiology Consult [Consult to Cardiology] [CONS] Cons 03/28/24 21:47 Active Routine CXR --portable [XR chest portable] Stat Exams 03/28/24 20:35 Completed CBC w/Auto Diff [Complete Blood Count Auto Diff] Stat Lab 03/28/24 20:49 Completed CMP [Comprehensive Metabolic Panel] Stat Lab 03/28/24 20:49 Completed Complete Blood Count Auto Diff AMLAB Lab 03/29/24 06:30 Completed Comprehensive Metabolic Panel AMLAB Lab 03/29/24 06:30 Completed INR [Prothrombin Time INR] Stat Lab 03/28/24 20:49 Completed Lipase Stat Lab 03/28/24 20:49 Completed Magnesium AMLAB Lab 03/29/24 06:30 Completed Magnesium Stat Lab 03/28/24 20:49 Completed NT Pro Brain Natriuretic Pep. Stat Lab 03/28/24 20:49 Completed Trop I [Troponin I] Stat Lab 03/28/24 20:49 Completed Troponin I Q3H Lab 03/28/24 23:50 Completed Troponin I Q3H Lab 03/29/24 02:45 Completed MDM Narrative Medical Decision Narrative: In summary patient is a 59-year-old female who presents to the emergency department for evaluation of dyspnea. Patient is normotensive in atrial fibrillation but rate controlled on the bedside monitor satting at 100% on room air breathing 20 times a minute upon arrival, afebrile. Physical exam shows a significantly distended abdomen that is very taut and patient has diminished excursion and air entry due to the abdominal girth. Breath sounds actually are clear but diminished at the bases. Patient has bilateral +1 pitting edema.. Differential diagnosis includes CHF exacerbation versus CHF induced hepatopathy versus ACS versus PE etc. Initial workup will be conducted with hematologic labs plain film chest x-ray twelve-lead EKG. Initial interventions include IV push diuresis. Initial workup reviewed by me shows a negative an undetectable troponin however she has a supratherapeutic INR and a significantly elevated BNP. Given her laboratory findings I had an interactive discussion with hospital medicine regarding patient management. Hospital medicine agreed to admit the patient for further management. I had interactive discussion with the patient who verbalized understanding and agreement with admission Alex: EKG independently interpreted, atrial fibrillation 97 beats a minute no ST or T wave changes concerning with acute ischemia. Right bundle branch block morphology. QT interval within normal limits. <Paolo Johnson MD - Last Filed: 03/29/24 15:04> Vital Signs Vital Signs: 03/28/24 20:34 03/28/24 21:01 03/28/24 21:30 Temperature 97.9 F Temperature Source Oral Pulse Rate 89 89 Pulse Rate [Left] 95 H Respiratory Rate 22 18 Blood Pressure 132/81 111/51 L Blood Pressure [Right Arm] 133/69 Blood Pressure Mean [Right Arm] 90 Blood Pressure Source [Right Arm] Automatic Cuff Blood Pressure Position Blood Pressure Position [Right Arm] Sitting 02 Sat by Pulse Oximetry 100 93 L 95 Oxygen Delivery Method Room Air Room Air 03/28/24 22:00 03/28/24 22:06 Temperature 97.9 F Temperature Source Oral Pulse Rate 89 94 H Pulse Rate [Left] Respiratory Rate 14 18 Blood Pressure 128/65 126/65 Blood Pressure [Right Arm] Blood Pressure Mean [Right Arm] Blood Pressure Source [Right Arm] Blood Pressure Position Supine Blood Pressure Position [Right Arm] 02 Sat by Pulse Oximetry 99 Oxygen Delivery Method Room Air Nasal Cannula Lab Data Labs: Lab Results 03/28/24 20:49: WBC 6.6, RBC 3.15 L, Hgb 8.4 L, Hct 27.7 L, MCV 87.8, MCH 26.7 L, MCHC 30.4 L, RDW 28.9 H*, Plt Count 257, MPV 7.7, Neut % (Auto) 84.6 H, Lymph % (Auto) 7.2 L, [place] % (Auto) 4.9, Eos % (Auto) 2.8, Baso % (Auto) 0.5, Neut # (Auto) 5.6, Lymph # (Auto) 0.5 L, [place] # (Auto) 0.3, Eos # (Auto) 0.2, Baso # (Auto) 0.0, PT 62.2 H, INR 6.51 H, Sodium 136, Potassium 3.7, Chloride 98, Carbon Dioxide 30, Anion Gap 11.7, BUN 23 H, Creatinine 1.20 H, Estimated Creat Clear 71, Estimated GFR 46 L, Est GFR ( Amer) 55 L, Glucose 245 H, Calcium 9.2, Magnesium 1.6, Total Bilirubin 1.0, AST 27, ALT 18, Alkaline Phosphatase 106, Troponin I < 0.01, NT-Pro-B Natriuret Pep 1280 H, Total Protein 6.6, Albumin 4.0, Globulin 2.6, Albumin/Globulin Ratio 1.5, Lipase 99 03/28/24 21:59: Blood Type O Positive, Antibody Screen Negative Response Orders (Tests/Meds): ED MEDICATIONS Discontinued Medications Generic Name Dose Route Start Last Admin Trade Name Freq PRN Reason Stop Dose Admin Acetaminophen 650 mg 03/28/24 21:47 Acetaminophen 325mg Tab PO 04/27/24 21:46 Q4HP PRN Fever or Mild Pain (1-3) Alprazolam 0.5 mg 03/29/24 00:52 Alprazolam 0.5mg Tablet PO 04/28/24 00:51 TIDP PRN Anxiety Aspirin 324 mg 03/28/24 20:35 03/28/24 20:45 Aspirin 81mg Chewable Tablet PO 03/28/24 20:36 324 mg ONCE ONE Administration Aspirin 81 mg 03/29/24 09:00 03/29/24 08:50 Aspirin Ec 81mg Tablet PO 04/28/24 08:59 81 mg DAILY JOEY Administration Bumetanide 1 mg 03/28/24 21:49 03/28/24 21:56 Bumetanide 1mg/4ml Vial IV 03/28/24 21:50 1 mg ONCE ONE Administration Bumetanide 2 mg 03/29/24 01:30 03/29/24 08:50 Bumetanide 1 Mg Tablet PO 04/28/24 01:29 2 mg BIDL JOEY Administration Calcitriol 0.25 mcg 03/29/24 09:00 03/29/24 08:50 Calcitriol 0.25mcg Capsule PO 04/28/24 08:59 0.25 mcg DAILY JOEY Administration Duloxetine HCl 60 mg 03/29/24 01:30 03/29/24 02:18 Duloxetine 30mg Capsule. PO 04/28/24 01:29 Not Given HS JOEY Insulin Human Lispro 0 unit 03/29/24 06:00 03/29/24 11:36 Humalog 100 Units/Ml 3ml Vial (Ssi) SQ 04/28/24 05:59 5 unit ACHS JOEY Administration Protocol Levalbuterol HCl 1.25 mg 03/29/24 00:52 Levalbuterol 1.25mg/3ml Neb IH 04/28/24 00:51 Q6HP PRN Shortness Of Breath Levothyroxine Sodium 25 mcg 03/29/24 07:00 03/29/24 06:56 Levothyroxine 25mcg (0.025mg) Tab PO 04/28/24 06:59 25 mcg AM JOEY Administration Levothyroxine Sodium 25 mcg 03/29/24 07:23 Levothyroxine 25mcg (0.025mg) Tab PO 04/28/24 06:59 DAILYDM JOEY Metoprolol Succinate 100 mg 03/29/24 09:00 03/29/24 08:50 Metoprolol Succinate Xl 100mg Tablet PO 04/28/24 08:59 100 mg BID JOEY Administration Miscellaneous 1 each 03/28/24 21:50 03/29/24 13:19 Pharmacy Consult Request NOTAPPLIC 03/28/24 21:51 Not Given CONSULT PHARMACY ONE Morphine Sulfate 2 mg 03/28/24 21:47 03/28/24 23:56 Morphine 2mg/Ml Syringe IV 04/27/24 21:46 2 mg Q2HP PRN Administration Severe Pain (7-10) Nicotine 21 mg 03/28/24 21:47 Nicotine 21mg/24hr Patch TD 04/27/24 21:46 DAILYP PRN Nicotine Cravings Non-Formulary Medication 50 units 03/29/24 09:00 03/29/24 08:52 Insulin Glargine-Lixisenatide SQ 04/28/24 08:59 Not Given DAILY JOEY Non-Formulary Medication 40 mg 03/29/24 09:00 03/29/24 13:10 Febuxostat PO 04/28/24 08:59 Not Given DAILY JOEY Ondansetron HCl 4 mg 03/28/24 21:47 Ondansetron 4mg/2ml Vial IV 04/27/24 21:46 Q8HP PRN Nausea Oxycodone/Acetaminophen 1 each 03/29/24 00:52 03/29/24 07:02 Oxycodone 10mg W/Apap 325mg Tablet PO 04/28/24 00:51 1 each QIDP PRN Administration Moderate Pain (4-6) Pantoprazole Sodium 40 mg 03/29/24 21:00 Pantoprazole 40mg Tablet PO 04/28/24 20:59 HS JOEY Potassium Chloride 10 meq 03/29/24 09:00 03/29/24 08:50 Potassium Chloride 10meq Tablet.Er PO 04/28/24 08:59 10 meq BID JOEY Administration Spironolactone 25 mg 03/29/24 09:00 03/29/24 08:50 Spironolactone 25mg Tablet PO 04/28/24 08:59 25 mg BIDL JOEY Administration Warfarin Sodium 2 mg 03/31/24 11:00 Warfarin 2mg Tablet PO 04/30/24 10:59 [email or web address] JOEY Warfarin Sodium 4 mg 03/29/24 11:00 03/29/24 11:33 Warfarin 2mg Tablet PO 04/28/24 10:59 4 mg [email or web address] [facility] Administration ORDERS Category Date Time Status Type and Screen Stat BBK 03/28/24 21:59 Completed Cardiology Consult [Consult to Cardiology] [CONS] Cons 03/28/24 21:47 Active Routine CXR --portable [XR chest portable] Stat Exams 03/28/24 20:35 Completed CBC w/Auto Diff [Complete Blood Count Auto Diff] Stat Lab 03/28/24 20:49 Completed CMP [Comprehensive Metabolic Panel] Stat Lab 03/28/24 20:49 Completed Complete Blood Count Auto Diff AMLAB Lab 03/29/24 06:30 Completed Comprehensive Metabolic Panel AMLAB Lab 03/29/24 06:30 Completed INR [Prothrombin Time INR] Stat Lab 03/28/24 20:49 Completed Lipase Stat Lab 03/28/24 20:49 Completed Magnesium AMLAB Lab 03/29/24 06:30 Completed Magnesium Stat Lab 03/28/24 20:49 Completed NT Pro Brain Natriuretic Pep. Stat Lab 03/28/24 20:49 Completed Trop I [Troponin I] Stat Lab 03/28/24 20:49 Completed Troponin I Q3H Lab 03/28/24 23:50 Completed Troponin I Q3H Lab 03/29/24 02:45 Completed MDM Narrative Medical Decision Narrative: In summary patient is a 59-year-old female who presents to the emergency department for evaluation of dyspnea. Patient is normotensive in atrial fibrillation but rate controlled on the bedside monitor satting at 100% on room air breathing 20 times a minute upon arrival, afebrile. Physical exam shows a significantly distended abdomen that is very taut and patient has diminished excursion and air entry due to the abdominal girth. Breath sounds actually are clear but diminished at the bases. Patient has bilateral +1 pitting edema.. Differential diagnosis includes CHF exacerbation versus CHF induced hepatopathy versus ACS versus PE etc. Initial workup will be conducted with hematologic labs plain film chest x-ray twelve-lead EKG. Initial interventions include IV push diuresis. Initial workup reviewed by me shows a negative an undetectable troponin however she has a supratherapeutic INR and a significantly elevated BNP. Given her laboratory findings I had an interactive discussion with hospital medicine regarding patient management. Hospital medicine agreed to admit the patient for further management. I had interactive discussion with the patient who verbalized understanding and agreement with admission Alex: EKG independently interpreted, atrial fibrillation 97 beats a minute no ST or T wave changes concerning with acute ischemia. Right bundle branch block morphology. QT interval within normal limits. I was consulted by the EZEQUIEL, and we discussed the complexity of the problems being addressed. I approved the treatment and management plan for this patient?s care in the Emergency Department, thus performing a substantive portion of the medical decision making. Paolo Johnson MD
[2024-03-28] MEDS: ASPIRIN 81MG CHEWABLE TABLET 324 MG PO (20:45)
[2024-03-28 20:58] LABS: Basophils % 0.5 % (0.1-2.0); Eosinophils # 0.2 K/mm3 (0.0-0.4); Eosinophils % 2.8 % (0.1-12.0); Hematocrit 27.7 % (37.0-47.0); Hemoglobin 8.4 g/dL (12.2-16.2); Lymphocytes # 0.5 K/mm3 (0.7-4.5); Lymphocytes % 7.2 % (10-50); Mean Corpuscular HGB Conc 30.4 g/dL (31.8-35.4); Mean Corpuscular Hemoglobin 26.7 pg (27.0-31.2); Mean Corpuscular Volume 87.8 fl (81-99); Mean Platelet Volume 7.7 fl (7.4-10.4); Monocytes # 0.3 K/mm3 (0.1-1.0); Monocytes % 4.9 % (1.7-9.3); Neutrophils # 5.6 K/mm3 (1.8-7.8); Neutrophils % 84.6 % (37.0-80.0); Platelet Count 257 K/mm3 (142-424); Red Blood Count 3.15 M/mm3 (4.20-5.40); White Blood Count 6.6 K/mm3 (4.8-10.8)
[2024-03-28 21:00] LABS: Red Cell Distribution Width 28.9 % (11.5-17.5)
[2024-03-28 21:01] VITALS: BP 132/81; PULSE 89; O2SAT 93
[2024-03-28 21:03] LABS: Chloride 98 mmol/L (98-107); Potassium 3.7 mmoL/L (3.5-5.1); Sodium 136 mmol/L (136-145)
[2024-03-28 21:05] LABS: Blood Urea Nitrogen 23 mg/dl (7-17); Creatinine Clearance Estimated 71 mL/min (50-200); Estimated Glomerular Filt Rate 46 ml/min (>60); GFR (African American) 55 ML/MIN (>60)
[2024-03-28 21:06] LABS: Alanine Aminotransferase 18 U/L (12-78); Albumin/Globulin Ratio 1.5 (1.1-1.8); Alkaline Phosphatase 106 U/L (38-126); Anion Gap 11.7 mEq/L (5-15); Aspartate Amino Transferase 27 U/L (14-36); Calcium 9.2 mg/dl (8.4-10.2); Carbon Dioxide 30 mmol/L (22.0-30.0); Globulin 2.6 g/dL (1.3-3.2); Glucose 245 mg/dl (74-100); Total Protein,Serum 6.6 g/dl (6.3-8.2)
[2024-03-28 21:10] LABS: Lipase 99 U/L (23-300)
[2024-03-28 21:11] LABS: Magnesium 1.6 mg/dl (1.6-2.3)
[2024-03-28 21:16] LABS: NT Pro Brain Natriuretic Pep. 1280 pg/mL (0-125)
[2024-03-28 21:19] LABS: Troponin I < 0.01 ng/ml (0.00-0.034)
--- NOTE | 2024-03-28 21:19 | PC.NURSE ---
rounded on patient, patient given warm blanket, no other needs
[2024-03-28 21:20] LABS: INR 6.51 (0.9-1.1)
[2024-03-28 21:21] LABS: Prothrombin Time 62.2 seconds (10.1-12.5)
[2024-03-28 21:30] VITALS: BP 111/51; PULSE 89; RESP 18; O2SAT 95
--- NOTE | 2024-03-28 21:48 | PC.NURSE ---
Pt o2 90% when laying, wears 2l/nc at home prn and cpap with sleep, 2l applied
--- NOTE | 2024-03-28 21:49 | PC.NURSE ---
contacted house for bed assignment. spoke with neftaly. dx: exacerbation of chf, supratherapeutic coagulation
--- NOTE | 2024-03-28 21:52 | EXP.HP ---
History of Present Illness *Admission Date: 03/28/24 *Reason for visit:: SOB *History of present illness: This is a 59 Yo F obese, with PMHx of multiples comorbidities including but not limited to pulmonary hypertension, dilated cardiomyopathy, COPD, HFrEF-EF, prosthetic mitral valve, hyperlipidemia, hypertension, GERD, and hemolytic anemia requiring blood transfusions presented to ED for evaluation of shortness of breath and chest pressure/dyspnea. Patient most recently received a blood transfusion last week however she reports increasing chest pressure and feeling like I have significant ascites . Patient does not have a known history of cirrhosis according to her. patient last seen by cardiology on February for acute exacerbation on CHF. Cardiac MRI and heart cath was ordered and still pending. She denies chest pain fever chills hemoptysis hematochezia melena hematemesis hematuria. Admitted for further management, work up and stabilization [facility] Disclaimer: The information contained in this section may have been updated after the patient was seen, as this information can be updated by other users. Medical History (Updated 03/29/24 @ 12:00 by Leslie Olmos RN) Atrial fibrillation, chronic COPD exacerbation CHF exacerbation Anemia Systolic CHF Typical angina Dyspnea Rib fracture Blood transfusion reaction Autoimmune hemolytic anemia Arthritis Hernia Sinus problem Rheumatic heart disease Hypothyroidism Polyarthralgia Pulmonary edema HLD (hyperlipidemia) HTN (hypertension) CAD (coronary artery disease) DM type 2 (diabetes mellitus, type 2) DVT (deep venous thrombosis) Cardiomyopathy Arrhythmia Liver disease Thyroid disease Valvular heart disease Hypertension Hyperlipidemia GERD (gastroesophageal reflux disease) COPD (chronic obstructive pulmonary disease) Class 1 obesity CKD (chronic kidney disease) stage 3, GFR 30-59 ml/min Acute on chronic HFrEF (heart failure with reduced ejection fraction) Coronary artery disease Congestive heart failure, NYHA class III NYHA class 3 acute on chronic systolic heart failure Diabetes mellitus Hypertensive heart disease CHF (congestive heart failure) Diastolic heart failure Tricuspid valve regurgitation nursing home current use of anticoagulants with INR goal of 2.5-3.5 Surgical History (Updated 03/29/24 @ 12:00 by Leslie Olmos RN) Mitral valve replaced History of colon resection H/O tubal ligation History of angioplasty History of renal stent History of ureteroscopy History of tubal ligation History of hernia repair History of cardiac catheterization History of mitral valve replacement with mechanical valve Family History Other Breast cancer COPD (chronic obstructive pulmonary disease) Colon cancer Family history of acute heart failure Family history of hyperlipidemia Family history of hypertension Family history of myocardial infarction Hypertension Stroke Social History (Updated 03/21/24 @ 12:34 by Marcos Eagle RN) Smoking Status: Former smoker tobacco type: cigarettes packs per day: 1 smoking status stop date: 01/09/2006 quit status: quit date established second hand exposure: Yes alcohol intake: never substance use type: denies use current occupational status: retired and disabled Travel in the last 8 weeks: None adopted: No caregiver/support person: No foster care: No household members: significant other housing: house lives independently: Yes marital status: life partner education level: college service: No senior care: No current occupational exposures/hazards: No sexually active: Yes how many partners: 1 are you practicing safe sex: Yes diet: diabetic well-balanced diet: about half the time caffeine: No eating out: rarely or never during the past year weight has: remained stable bhavya/restoration: Alevism special bhavya needs: No agree to transfusion: Yes helmet use: No water heater temp set < 120 deg: Yes working smoke detector in home: Yes fire extinguisher in home: Yes carbon monox detector in home: Yes firearms in home: No do you feel safe at home: Yes victim of physical abuse: No victim of emotional abuse: No victim of sexual abuse: No would you like helpful sources: No Review of Systems Review of Systems Review of systems:: pertinent systems reviewed and negative unless documented below Meds Home Medications and Allergies Home Medications Medication Instructions Recorded Confirmed Type aspirin 81 mg tablet,delayed 81 mg PO DAILY 12/01/17 03/28/24 History release (Adult Low Dose Aspirin) oxycodone-acetaminophen 10 mg-325 1 tab PO QIDP PRN Moderate Pain 05/23/18 03/28/24 History mg tablet (Percocet) alprazolam 0.5 mg tablet (Xanax) 0.5 mg PO TIDP PRN Anxiety 11/29/19 03/29/24 History levothyroxine 25 mcg tablet 25 mcg PO DAILY 06/05/21 03/29/24 History insulin glargine 100 50 units SQ DAILY 02/22/22 03/28/24 History unit-lixisenatide 33 mcg/mL subcutaneous pen febuxostat 40 mg tablet 40 mg PO DAILY 02/09/23 03/28/24 History potassium chloride 20 mEq 20 meq PO BID 04/15/23 03/29/24 History tablet,extended release(part/cryst) Lactobacills gasseri-Bifidobac 1 cap PO DAILY 10/30/23 03/28/24 History bifidum,longum 1.5 billion cell capsule (Probiotic Colon Support) bisacodyl 5 mg tablet,delayed 5 mg PO DIRECTED PRN 10/30/23 03/28/24 History release (Gentle Laxative Constipation (bisacodyl)) calcitriol 0.25 mcg capsule 0.25 mcg PO DAILY 10/30/23 03/28/24 History warfarin 4 mg tablet 4 mg PO SUTUWETHSA 10/31/23 03/29/24 History warfarin 4 mg tablet 2 mg PO MOFR 11/25/23 03/29/24 History metoprolol succinate 100 mg 100 mg PO BID 30 days #60 tabs 11/29/23 03/28/24 Rx tablet,extended release 24 hr duloxetine 60 mg capsule,delayed 60 mg PO HS 03/06/24 03/28/24 History release spironolactone 25 mg tablet 25 mg PO BID 03/09/24 03/28/24 History albuterol 90 mcg/actuation aerosol 90 mcg inhalation Q4HP PRN soa 03/28/24 03/28/24 History inhaler levalbuterol HCl 1.25 mg/3 mL 1.25 mg inhalation Q6HP PRN 03/28/24 03/28/24 History solution for nebulization Shortness Of Breath bumetanide 2 mg tablet 2 mg PO BID 03/29/24 03/28/24 History dexlansoprazole 30 mg 30 mg PO DAILY 03/29/24 03/29/24 History capsule,biphase delayed release (Dexilant) New Prescriptions to Start Prescriptions: Allergies Allergy/AdvReac Type Severity Reaction Status Date / Time codeine [CODEINE] Allergy Unknown nausea, Verified 03/21/24 12:35 swelling Corticosteroids Allergy Unknown Unknown Verified 03/21/24 12:35 (Glucocorticoids) allergy [CORTICOSTEROIDS reaction (GLUCOCORTICOIDS)] rosuvastatin [From CRESTOR] Allergy Unknown Unknown Verified 03/21/24 12:35 allergy reaction theophylline [From DAVID-DUR] Allergy Unknown Unknown Verified 03/21/24 12:35 allergy reaction Iodinated Contrast Media AdvReac Severe shuts Verified 03/21/24 12:35 [IODINATED CONTRAST- ORAL kidneys AND IV DYE] down and bleeding buprenorphine [From BUPRENEX] AdvReac Intermediate Nausea Verified 03/21/24 12:35 levofloxacin [From Levaquin] AdvReac Verified 03/29/24 03:25 lisinopril AdvReac Cough Verified 03/21/24 12:35 prednisone AdvReac Unknown Verified 03/21/24 12:35 allergy reaction sacubitril [From Entresto] AdvReac Hypotension Verified 03/21/24 12:35 valsartan [From Entresto] AdvReac Hypotension Verified 03/21/24 12:35 Exam Data for Last 24 hours Vital signs and Labs for Last 24 Hours: Temp Pulse Resp BP Pulse Ox O2 Del Method 97.9 F 89 22 132/81 93 L Room Air 03/28/24 20:34 03/28/24 21:01 03/28/24 20:34 03/28/24 21:01 03/28/24 21:01 03/28/24 20:34 Laboratory Results - last 24 hr 03/28/24 20:49: WBC 6.6, RBC 3.15 L, Hgb 8.4 L, Hct 27.7 L, MCV 87.8, MCH 26.7 L, MCHC 30.4 L, RDW 28.9 H*, Plt Count 257, MPV 7.7, Neut % (Auto) 84.6 H, Lymph % (Auto) 7.2 L, Webb % (Auto) 4.9, Eos % (Auto) 2.8, Baso % (Auto) 0.5, Neut # (Auto) 5.6, Lymph # (Auto) 0.5 L, Webb # (Auto) 0.3, Eos # (Auto) 0.2, Baso # (Auto) 0.0, PT 62.2 H, INR 6.51 H, Sodium 136, Potassium 3.7, Chloride 98, Carbon Dioxide 30, Anion Gap 11.7, BUN 23 H, Creatinine 1.20 H, Estimated Creat Clear 71, Estimated GFR 46 L, Est GFR ( Amer) 55 L, Glucose 245 H, Calcium 9.2, Magnesium 1.6, Total Bilirubin 1.0, AST 27, ALT 18, Alkaline Phosphatase 106, Troponin I < 0.01, NT-Pro-B Natriuret Pep 1280 H, Total Protein 6.6, Albumin 4.0, Globulin 2.6, Albumin/Globulin Ratio 1.5, Lipase 99 Laboratory Results - last 24 hr 11/25/23 15:37: INR (Fingerstick) 3.0 H 11/25/23 17:15: Sodium 139, Potassium 3.4 L, Chloride 103, Carbon Dioxide 29, Anion Gap 10.4, BUN 15, Creatinine 1.10 H, Estimated Creat Clear 85, Estimated GFR 51 L, Est GFR ( Amer) 61, Glucose 191 H, Calcium 8.6, Total Bilirubin 0.5, AST 27, ALT 19, Alkaline Phosphatase 88, NT-Pro-B Natriuret Pep 3050 H, Total Protein 6.4, Albumin 3.8, Globulin 2.6, Albumin/Globulin Ratio 1.5 I & O for Last 24 hours: Intake & Output 03/25/24 03/26/24 03/27/24 03/28/24 23:59 23:59 23:59 23:59 Weight 91.172 kg Intake & Output 11/22/23 11/23/23 11/24/23 11/25/23 23:59 23:59 23:59 23:59 Weight 98.883 kg Constitutional Constitutional: mild distress, morbidly obese and cooperative *Routine HEENT Exam Head: Present normocephalic Eye: Present EOMI and PERRL ENT: Present mucous membranes moist *Routine Neck Exam Neck: Present supple; Absent lymphadenopathy *Routine Respiratory Exam Respiratory: Present CTA bilaterally *Routine Cardiovascular Exam Cardiovascular: Present Normal S1, Normal S2, bradycardia and irregular rhythm *Routine Abdominal Exam Abdominal: Present soft, normoactive bowel sounds, tenderness and distended *Routine Rectal Exam Rectal:: deferred *Routine Genitalia Exam Genitalia:: deferred *Routine Extremities Exam Extremities: Present edema; Absent cyanosis or clubbing Comments: has b/l LE edema *Routine Skin Exam Skin: Present warm; Absent rash *Routine Neurological Exam Neurological: Present alert, oriented X3, normal reflexes and moving all extremities Routine Psychiatric Exam Psychiatric: Present anxious H&P: Result Imaging and Cardiology EKG: Status: Preliminary report and final report Chest x-ray: Status: image reviewed by me, Preliminary report and final report Assessment and Plan *Assessment and plan (1) Acute on chronic HFrEF (heart failure with reduced ejection fraction): Status: Acute Category: Medical Code(s): I50.23 - Acute on chronic systolic (congestive) heart failure (2) Atrial fibrillation, chronic: Status: Acute Category: Medical Code(s): I48.20 - Chronic atrial fibrillation, unspecified (3) Anemia: Status: Acute Qualifiers: Anemia type: unspecified type Qualified Code(s): D64.9 - Anemia, unspecified Category: Medical Code(s): D64.9 - Anemia, unspecified (4) Supratherapeutic INR: Status: Acute Category: Medical Code(s): R79.1 - Abnormal coagulation profile (5) HTN (hypertension): Status: Acute Qualifiers: Hypertension type: unspecified Qualified Code(s): I10 - Essential (primary) hypertension Category: Medical Code(s): I10 - Essential (primary) hypertension (6) Hyperlipidemia: Status: Acute Qualifiers: Hyperlipidemia type: unspecified Qualified Code(s): E78.5 - Hyperlipidemia, unspecified Category: Medical Code(s): E78.5 - Hyperlipidemia, unspecified (7) Cardiomyopathy: Status: Acute Qualifiers: Cardiomyopathy type: unspecified Qualified Code(s): I42.9 - Cardiomyopathy, unspecified Category: Medical Code(s): I42.9 - Cardiomyopathy, unspecified (8) Diabetes mellitus: Status: Acute Qualifiers: Diabetes mellitus complication status: without complication Diabetes mellitus type: type 1 Qualified Code(s): E10.9 - Type 1 diabetes mellitus without complications Category: Medical Code(s): E11.9 - Type 2 diabetes mellitus without complications (9) CKD (chronic kidney disease) stage 3, GFR 30-59 ml/min: Status: Acute Qualifiers: Chronic kidney disease stage 3 subtype: stage 3b (GFR 30-44) Qualified Code(s): N18.32 - Chronic kidney disease, stage 3b Category: Medical Code(s): N18.30 - Chronic kidney disease, stage 3 unspecified (10) COPD (chronic obstructive pulmonary disease): Status: Acute Qualifiers: COPD type: unspecified COPD Qualified Code(s): J44.9 - Chronic obstructive pulmonary disease, unspecified Category: Medical Code(s): J44.9 - Chronic obstructive pulmonary disease, unspecified (11) GERD (gastroesophageal reflux disease): Status: Acute Qualifiers: Esophagitis presence: esophagitis presence not specified Qualified Code(s): K21.9 - Gastro-esophageal reflux disease without esophagitis Category: Medical Code(s): K21.9 - Gastro-esophageal reflux disease without esophagitis Plan CHrEF with acute on chronic exacerbation: atrial fib Hx of MVR. on chronic warfarin supratherapeutic INR Admit patient for continuous cardiac monitoring optimize o2 sat bumex 2 mg given. Dyspnea improved after monitor output cardiac consult last Echocardiogram recently showed EF 25 to 30% (further reduced compared to February 11 study). Severe biatrial dilatation. Moderate to severe TR with RVSP 40-45 mmHg. Mechanical MVR functioning appropriate. CHUCHO showed: The LVEF was noted to be reduced, MVR appears well-positioned with good disc mobility. Severe TR present patient was ordered cardiac MRI and is scheduled for cardiac cath. Cardiology to follow up. Hold warfarin. Pharmacy to monitor INR repeat INR. nursing to monitor for signs of bleeding strict I/Os. daily weight -HTN/HLD/Cardiomyopathy: resumed home regimen pending r/o amyloidosis -CKD/IDDM/ Chronic anemia conditions reviewed. stable resume home lantus 50unit sliding scale. diabetic diet Hb 8.4. will transfuse if needed. daily CBC Others chronic conditions: GERD, GOUT, COPD, Hypothyroidism, anxiety: reconciled and resume home medication continue monitoring SCD for DVt ppx. low concern of DVT. INR supratherapeutic. On protonix for GERD and GI bleeed protoection Full code Rounded on patient after nurse practitioner. Personally examined and interviewed patient. Agree with exam findings and care plan as documented.
[2024-03-28] MEDS: BUMETANIDE 1MG/4ML VIAL 1 MG IV (21:56)
[2024-03-28 22:00] VITALS: BP 128/65; PULSE 89; RESP 14; O2SAT 99
[2024-03-28 22:06] VITALS: BP 126/65; PULSE 94; RESP 18; TEMP 36.6; O2SAT 96
[2024-03-28 22:37] VITALS: BP 128/65; PULSE 86; RESP 15; TEMP 36.6; O2SAT 100; BMI 33.8
[2024-03-28] MEDS: MORPHINE 2MG/ML SYRINGE 2 MG IV (23:56)
[2024-03-29] VITALS: BP 132/79; PULSE 79; PULSE 95; RESP 16; TEMP 36.4; O2SAT 97
[2024-03-29] MEDS: BUMETANIDE 1 MG TABLET 2 MG PO ×2 (01:34→08:50)
[2024-03-29 02:16] LABS: Troponin I < 0.01 ng/ml (0.00-0.034)
--- NOTE | 2024-03-29 03:10 | PC.NURSE ---
faby made aware of pharmacy consult for wafarin dosing
[2024-03-29 03:20] LABS: Troponin I 0.01 ng/ml (0.00-0.034)
[2024-03-29 04:00] VITALS: BP 122/66; PULSE 83; PULSE 87; RESP 16; TEMP 36.4; O2SAT 98; BMI 33.7
[2024-03-29 06:50] LABS: Basophils % 0.6 % (0.1-2.0); Eosinophils # 0.2 K/mm3 (0.0-0.4); Eosinophils % 3.6 % (0.1-12.0); Hematocrit 28.3 % (37.0-47.0); Hemoglobin 8.2 g/dL (12.2-16.2); Lymphocytes # 0.6 K/mm3 (0.7-4.5); Lymphocytes % 8.9 % (10-50); Mean Corpuscular HGB Conc 28.9 g/dL (31.8-35.4); Mean Corpuscular Hemoglobin 26.1 pg (27.0-31.2); Mean Corpuscular Volume 90.4 fl (81-99); Mean Platelet Volume 8.5 fl (7.4-10.4); Monocytes # 0.3 K/mm3 (0.1-1.0); Monocytes % 5.2 % (1.7-9.3); Neutrophils # 5.2 K/mm3 (1.8-7.8); Neutrophils % 81.7 % (37.0-80.0); Platelet Count 266 K/mm3 (142-424); Red Blood Count 3.12 M/mm3 (4.20-5.40); White Blood Count 6.3 K/mm3 (4.8-10.8)
[2024-03-29] MEDS: LEVOTHYROXINE 25MCG (0.025MG) TAB 25 MCG PO (06:56)
[2024-03-29] MEDS: humaLOG 100 UNITS/ML 3ML VIAL (SSI) SQ ×2 (06:56→11:36)
[2024-03-29 06:57] LABS: POC Glucose,Bedside 212 (70-110)
[2024-03-29 06:59] LABS: INR 2.32 (0.9-1.1); Prothrombin Time 23.7 seconds (10.1-12.5)
[2024-03-29] MEDS: OXYCODONE 10MG W/APAP 325MG TABLET 1 EACH PO (07:02)
[2024-03-29 07:04] LABS: Red Cell Distribution Width 29.6 % (11.5-17.5)
[2024-03-29 07:07] LABS: Alanine Aminotransferase 14 U/L (12-78); Albumin/Globulin Ratio 1.5 (1.1-1.8); Alkaline Phosphatase 99 U/L (38-126); Anion Gap 12.6 mEq/L (5-15); Aspartate Amino Transferase 25 U/L (14-36); Blood Urea Nitrogen 23 mg/dl (7-17); Calcium 9.4 mg/dl (8.4-10.2); Carbon Dioxide 34 mmol/L (22.0-30.0); Chloride 97 mmol/L (98-107); Creatinine Clearance Estimated 83 mL/min (50-200); Estimated Glomerular Filt Rate 56 ml/min (>60); GFR (African American) 68 ML/MIN (>60); Globulin 2.6 g/dL (1.3-3.2); Glucose 193 mg/dl (74-100); Magnesium 1.9 mg/dl (1.6-2.3); Potassium 3.6 mmoL/L (3.5-5.1); Sodium 140 mmol/L (136-145); Total Protein,Serum 6.6 g/dl (6.3-8.2)
[2024-03-29 07:41] VITALS: BMI 33.7
[2024-03-29 07:45] VITALS: BP 123/79; PULSE 96; RESP 22; TEMP 36.7; O2SAT 99
[2024-03-29 08:00] VITALS: PULSE 90
[2024-03-29] MEDS: ASPIRIN EC 81MG TABLET 81 MG PO (08:50)
[2024-03-29] MEDS: METOPROLOL SUCCINATE XL 100MG TABLET 100 MG PO (08:50)
[2024-03-29] MEDS: SPIRONOLACTONE 25MG TABLET 25 MG PO (08:50)
[2024-03-29] MEDS: CALCITRIOL 0.25MCG CAPSULE 0.25 MCG PO (08:50)
[2024-03-29] MEDS: POTASSIUM CHLORIDE 10MEQ TABLET.ER 10 MEQ PO (08:50)
--- NOTE | 2024-03-29 10:25 | P.CONCA_ITS ---
History of Present Illness History of Present Illness Consult date: 03/29/24 Requesting physician: Neptali Herbert Consult reason: shortness of breath Chief complaint: soa, swelling History of present illness: This is a 59-year-old white female with past medical history of normal coronaries in 2017, hypertension, heart failure with reduced ejection fraction with an EF of 25 to 30%, presence of a CardioMEMS-have not received transmissions since 2020, mechanical mitral valve on Coumadin, chronic kidney disease, autoimmune hemolytic anemia requiring frequent transfusions, diabetes mellitus, chronic A-fib and COPD presented to emergency department yesterday with complaints of shortness of breath, abdominal swelling and chest tightness. Of note patient has had a total of 3 units of packed red blood transfused in the last 2 weeks and 2 infusions of iron. Patient reports she started to feel short of breath earlier in the week but did not take her as needed metolazone because did not want to mask her symptoms prior to her testing. Patient is scheduled for cardiac MRI today as well as a right heart cath on Wednesday for ongoing symptoms of heart failure. Upon presentation to emergency department patient was noted to be in A-fib at a controlled rate of 97. Labs were as follow: WBC 6.6, hemoglobin 8.4, INR 6.51 trending down to 2.32 today, sodium 136, potassium 3.7, creatinine 1.2 trending down to 1. Liver enzymes were normal. ProBNP was elevated at 1280. Serial troponins negative. Patient was given Bumex and admitted for supratherapeutic INR and acute heart failure exacerbation. This morning patient is resting comfortably in a chair. She reports her chest pressure and shortness of breath have greatly improved. [facility] Disclaimer: The information contained in this section may have been updated after the patient was seen, as this information can be updated by other users. Medical History (Updated 03/29/24 @ 03:00 by Anthony Colón APRN) CKD (chronic kidney disease) stage 3, GFR 30-59 ml/min Atrial fibrillation, chronic CKD (chronic kidney disease) stage 4, GFR 15-29 ml/min Diabetes mellitus COPD exacerbation CHF exacerbation CKD (chronic kidney disease) Anemia Systolic CHF Typical angina Dyspnea Rib fracture Blood transfusion reaction Autoimmune hemolytic anemia Arthritis Hernia Sinus problem Rheumatic heart disease Hypothyroidism GERD (gastroesophageal reflux disease) COPD (chronic obstructive pulmonary disease) Polyarthralgia CKD (chronic kidney disease) Pulmonary edema HLD (hyperlipidemia) HLD (hyperlipidemia) HLD (hyperlipidemia) HTN (hypertension) Afib CHF (congestive heart failure) CAD (coronary artery disease) Anemia DM type 2 (diabetes mellitus, type 2) DVT (deep venous thrombosis) Cardiomyopathy Arrhythmia Liver disease Thyroid disease Sinus problem Liver disease Hypothyroidism Blood transfusion reaction Arthritis Valvular heart disease Hypertension Hyperlipidemia GERD (gastroesophageal reflux disease) DVT (deep venous thrombosis) COPD (chronic obstructive pulmonary disease) Cardiomyopathy Arrhythmia Anemia Class 1 obesity Acute on chronic HFrEF (heart failure with reduced ejection fraction) Coronary artery disease Congestive heart failure, NYHA class III NYHA class 3 acute on chronic systolic heart failure Hyperlipidemia Hypertensive heart disease Afib CHF (congestive heart failure) Diastolic heart failure Tricuspid valve regurgitation custodial current use of anticoagulants with INR goal of 2.5-3.5 Surgical History Mitral valve replaced History of colon resection H/O tubal ligation History of cardiac cath History of angioplasty History of renal stent History of ureteroscopy History of renal stent History of tubal ligation History of hernia repair History of colon resection History of cardiac catheterization History of mitral valve replacement with mechanical valve Family History Other Breast cancer COPD (chronic obstructive pulmonary disease) Colon cancer Family history of acute heart failure Family history of hyperlipidemia Family history of hypertension Family history of myocardial infarction Hypertension Stroke Social History (Updated 03/21/24 @ 12:34 by Marcos Eagle, RN) Smoking Status: Former smoker tobacco type: cigarettes packs per day: 1 smoking status stop date: 01/09/2006 quit status: quit date established second hand exposure: Yes alcohol intake: never substance use type: denies use current occupational status: retired and disabled Travel in the last 8 weeks: None adopted: No caregiver/support person: No foster care: No household members: significant other housing: house lives independently: Yes marital status: life partner education level: college service: No longterm: No current occupational exposures/hazards: No sexually active: Yes how many partners: 1 are you practicing safe sex: Yes diet: diabetic well-balanced diet: about half the time caffeine: No eating out: rarely or never during the past year weight has: remained stable bhavya/samaritan: Baptism special bhavya needs: No agree to transfusion: Yes helmet use: No water heater temp set < 120 deg: Yes working smoke detector in home: Yes fire extinguisher in home: Yes carbon monox detector in home: Yes firearms in home: No do you feel safe at home: Yes victim of physical abuse: No victim of emotional abuse: No victim of sexual abuse: No would you like helpful sources: No Review of Systems *Cardiovascular Cardiovascular: Reports chest pain and Reports dyspnea *Respiratory Respiratory: Reports dyspnea *Gastrointestinal Gastrointestinal: Reports abdominal pain Exam Data for Last 24 hours Vital signs and Labs for Last 24 Hours: Temp Pulse Resp BP Pulse Ox O2 Del Method O2 Flow Rate 98.0 F 96 H 22 123/79 99 Nasal Cannula 2 03/29/24 07:45 03/29/24 07:45 03/29/24 07:45 03/29/24 07:45 03/29/24 07:45 03/29/24 07:45 03/29/24 07:45 Laboratory Results - last 24 hr 03/28/24 20:49: WBC 6.6, RBC 3.15 L, Hgb 8.4 L, Hct 27.7 L, MCV 87.8, MCH 26.7 L , MCHC 30.4 L, RDW 28.9 H*, Plt Count 257, MPV 7.7, Neut % (Auto) 84.6 H, Lymph % (Auto) 7.2 L, Posey % (Auto) 4.9, Eos % (Auto) 2.8, Baso % (Auto) 0.5, Neut # (Auto) 5.6, Lymph # (Auto) 0.5 L, Posey # (Auto) 0.3, Eos # (Auto) 0.2, Baso # (Auto) 0.0, PT 62.2 H, INR 6.51 H, Sodium 136, Potassium 3.7, Chloride 98, Carbon Dioxide 30, Anion Gap 11.7, BUN 23 H, Creatinine 1.20 H, Estimated Creat Clear 71, Estimated GFR 46 L, Est GFR ( Amer) 55 L, Glucose 245 H, Calcium 9.2, Magnesium 1.6, Total Bilirubin 1.0, AST 27, ALT 18, Alkaline Phosphatase 106, Troponin I < 0.01, NT-Pro-B Natriuret Pep 1280 H, Total Protein 6.6, Albumin 4.0, Globulin 2.6, Albumin/Globulin Ratio 1.5, Lipase 99 03/28/24 21:59: Blood Type O Positive, Antibody Screen Negative 03/28/24 23:50: Troponin I < 0.01 03/29/24 02:45: Troponin I 0.01 03/29/24 06:30: WBC 6.3, RBC 3.12 L, Hgb 8.2 L, Hct 28.3 L, MCV 90.4, MCH 26.1 L , MCHC 28.9 L, RDW 29.6 H*, Plt Count 266, MPV 8.5, Neut % (Auto) 81.7 H, Lymph % (Auto) 8.9 L, Posey % (Auto) 5.2, Eos % (Auto) 3.6, Baso % (Auto) 0.6, Neut # (Auto) 5.2, Lymph # (Auto) 0.6 L, Posey # (Auto) 0.3, Eos # (Auto) 0.2, Baso # (Auto) 0.0, PT 23.7 H, INR 2.32 H, Sodium 140, Potassium 3.6, Chloride 97 L, Carbon Dioxide 34 H, Anion Gap 12.6, BUN 23 H, Creatinine 1.00, Estimated Creat Clear 83, Estimated GFR 56 L, Est GFR ( Amer) 68 D, Glucose 193 H D, Calcium 9.4, Magnesium 1.9 D, Total Bilirubin 1.0, AST 25, ALT 14, Alkaline Phosphatase 99, Total Protein 6.6, Albumin 4.0, Globulin 2.6, Albumin/Globulin Ratio 1.5 03/29/24 06:49: POC Glucose 212 H I & O for Last 24 hours: Intake & Output 03/26/24 03/27/24 03/28/24 03/29/24 23:59 23:59 23:59 23:59 Intake Total 370 / 370 Output Total 400 / 400 2099 / 2099 Balance -400 / -400 -1730 / -1730 Weight 198 lb 6.4 oz 197 lb 3.996 oz Constitutional Constitutional: no acute distress *Routine Respiratory Exam Respiratory: Present CTA bilaterally and symmetric chest movement *Routine Cardiovascular Exam Cardiovascular: Present RRR, Normal S1 and Normal S2 *Routine Abdominal Exam Abdominal: Present soft and normoactive bowel sounds; Absent tenderness *Routine Extremities Exam Extremities: Present full ROM and normal capillary refill; Absent edema *Routine Skin Exam Skin: Present intact, dry and warm Detailed Neck Exam: Thyroids Thyroid: Absent bruit Meds Home Medications and Allergies Home Medications Medication Instructions Recorded Confirmed Type aspirin 81 mg tablet,delayed 81 mg PO DAILY 12/01/17 03/28/24 History release (Adult Low Dose Aspirin) oxycodone-acetaminophen 10 mg-325 1 tab PO QIDP PRN Moderate Pain 05/23/18 03/28/24 History mg tablet (Percocet) alprazolam 0.5 mg tablet (Xanax) 0.5 mg PO TIDP PRN Anxiety 11/29/19 03/29/24 History levothyroxine 25 mcg tablet 25 mcg PO DAILY 06/05/21 03/29/24 History insulin glargine 100 50 units SQ DAILY 02/22/22 03/28/24 History unit-lixisenatide 33 mcg/mL subcutaneous pen febuxostat 40 mg tablet 40 mg PO DAILY 02/09/23 03/28/24 History potassium chloride 20 mEq 20 meq PO BID 04/15/23 03/29/24 History tablet,extended release(part/cryst) Lactobacills gasseri-Bifidobac 1 cap PO DAILY 10/30/23 03/28/24 History bifidum,longum 1.5 billion cell capsule (Probiotic Colon Support) bisacodyl 5 mg tablet,delayed 5 mg PO DIRECTED PRN 10/30/23 03/28/24 History release (Gentle Laxative Constipation (bisacodyl)) calcitriol 0.25 mcg capsule 0.25 mcg PO DAILY 10/30/23 03/28/24 History warfarin 4 mg tablet 4 mg PO SUTUWETHSA 10/31/23 03/29/24 History warfarin 4 mg tablet 2 mg PO MOFR 11/25/23 03/29/24 History metoprolol succinate 100 mg 100 mg PO BID 30 days #60 tabs 11/29/23 03/28/24 Rx tablet,extended release 24 hr duloxetine 60 mg capsule,delayed 60 mg PO HS 03/06/24 03/28/24 History release spironolactone 25 mg tablet 25 mg PO BID 03/09/24 03/28/24 History albuterol 90 mcg/actuation aerosol 90 mcg inhalation Q4HP PRN soa 03/28/24 03/28/24 History inhaler levalbuterol HCl 1.25 mg/3 mL 1.25 mg inhalation Q6HP PRN 03/28/24 03/28/24 H istory solution for nebulization Shortness Of Breath bumetanide 2 mg tablet 2 mg PO BID 03/29/24 03/28/24 History dexlansoprazole 30 mg 30 mg PO DAILY 03/29/24 03/29/24 History capsule,biphase delayed release (Dexilant) New Prescriptions to Start Prescriptions: Allergies Allergy/AdvReac Type Severity Reaction Status Date / Time codeine [CODEINE] Allergy Unknown nausea, Verified 03/21/24 12:35 swelling Corticosteroids Allergy Unknown Unknown Verified 03/21/24 12:35 (Glucocorticoids) allergy [CORTICOSTEROIDS reaction (GLUCOCORTICOIDS)] rosuvastatin [From CRESTOR] Allergy Unknown Unknown Verified 03/21/24 12:35 allergy reaction theophylline [From DAVID-DUR] Allergy Unknown Unknown Verified 03/21/24 12:35 allergy reaction Iodinated Contrast Media AdvReac Severe shuts Verified 03/21/24 12:35 [IODINATED CONTRAST- ORAL kidneys AND IV DYE] down and bleeding buprenorphine [From BUPRENEX] AdvReac Intermediate Nausea Verified 03/21/24 12:35 levofloxacin [From Levaquin] AdvReac Verified 03/29/24 03:25 lisinopril AdvReac Cough Verified 03/21/24 12:35 prednisone AdvReac Unknown Verified 03/21/24 12:35 allergy reaction sacubitril [From Entresto] AdvReac Hypotension Verified 03/21/24 12:35 valsartan [From Entresto] AdvReac Hypotension Verified 03/21/24 12:35 Assessment and Plan *Assessment and plan (1) Atrial fibrillation, chronic: Status: Acute Category: Medical Code(s): I48.20 - Chronic atrial fibrillation, unspecified (2) Acute on chronic HFrEF (heart failure with reduced ejection fraction): Status: Acute Category: Medical Code(s): I50.23 - Acute on chronic systolic (congestive) heart failure (3) Supratherapeutic INR: Status: Acute Category: Medical Code(s): R79.1 - Abnormal coagulation profile (4) Dyspnea: Status: Acute Qualifiers: Dyspnea type: dyspnea on exertion Qualified Code(s): R06.09 - Other forms of dyspnea Category: Medical Code(s): R06.00 - Dyspnea, unspecified (5) Anemia: Status: Acute Qualifiers: Anemia type: unspecified type Qualified Code(s): D64.9 - Anemia, unspecified Category: Medical Code(s): D64.9 - Anemia, unspecified Plan Acute on chronic HFrEF-EF 20-25 Exacerbation of heart failure symptoms status post multiple transfusions for anemia in the last 2 weeks Patient reports has been compliant with her Aldactone and Bumex but has not been taking her as needed metolazone and developed symptoms early in the week. Patient is scheduled for cardiac MRI today and has a right heart cath pending for Wednesday Patient was diuresed with Bumex and reports symptoms have greatly improved Continue Bumex 2 mg p.o. twice daily, Aldactone 25 mg p.o. twice daily and metolazone as needed. No arni or SGLT-2 due to inability to tolerate in the past Patient was scheduled for cardiac MRI today, missed appointment, will need it rescheduled Chronic afib Supratherapeutic iNR Currently rate controlled. Continue metoprolol 100 mg p.o. twice daily INR on admission was 6.51. INR today 2.32. Continue Coumadin per Coumadin clinic Autoimmune hemolytic anemia Hemoglobin 8.4 and stable Follows with Dr. Pro Patient is CV stable for discharge home. Please have patient continue home medication and keep her appointment for right heart catheterization on Wednesday. Cardiac MRI needs to be rescheduled.
--- NOTE | 2024-03-29 11:21 | P.DS_ITS ---
General Admission date:: 03/28/24 Discharge date: 03/29/24 HPI HPI HPI: This is a 59 Yo F obese, with PMHx of multiples comorbidities including but not limited to pulmonary hypertension, dilated cardiomyopathy, COPD, HFrEF-EF, prosthetic mitral valve, hyperlipidemia, hypertension, GERD, and hemolytic anemia requiring blood transfusions presented to ED for evaluation of shortness of breath and chest pressure/dyspnea. Patient most recently received a blood transfusion last week however she reports increasing chest pressure and feeling like I have significant ascites . Patient does not have a known history of cirrhosis according to her. patient last seen by cardiology on February for acute exacerbation on CHF. Cardiac MRI and heart cath was ordered and still pending. She denies chest pain fever chills hemoptysis hematochezia melena hematemesis hematuria. Admitted for further management, work up and stabilization Hospital Course Hospital Course Hospital Course: 59-year-old with heart failure with reduced ejection fraction, mechanical mitral valve, chronic anticoagulation, autoimmune hemolytic anemia, chronic A-fib. Was admitted to medicine for management of acute exacerbation of her CHF and supratherapeutic INR. Patient during admission, responded to diuretics. INR improved to her normal range. Stable to discharge home for continued outpatient management. Problems addressed as follows: Acute on chronic HFrEF-EF 20-25 Chronic A-fib History of mitral valve replacement Patient was admitted for shortness of breath and concern for volume overload. Findings consistent with acute on chronic CHF exacerbation. BNP elevated at 1280. Received dose of diuretic with improvement in her dyspnea. Initially on 2 L nasal cannula oxygen, weaned to room air by morning with sats above 90. Reports compliance with her medications but also reports she has gained weight over the past few weeks. Has not been taking her metolazone as often as she needs to. Cardiology evaluated. No significant changes made to medications at this time. Recommend continuing Bumex 2 mg twice daily, Aldactone 25 mg twice daily, and metolazone as needed. Patient scheduled for outpatient cardiac MRI and right heart cath on Wednesday. Will proceed with those studies as outpatient. Stable to discharge home to continue medical management. Rate appears controlled, continue metoprolol 100 mg twice daily. INR initially 6.5 when she presented to the ER, normalized to 2.3 by morning. Continue Coumadin regimen. Follows with Coumadin clinic. No adjustments made to her anticoagulation regimen. -CKD/IDDM/ Chronic anemia Kidney function stable with BUN 23, creatinine 1.0. Anemia stable at 8.2. Continue her home med for diet reason hypothyroid. No adjustments made. Patient doing well and at baseline level of function. Stable to discharge home. Total time spent on discharge 32 minutes in counseling, documentation, chart review, and direct care with patient. Exam Data for Last 24 hours Vital signs and Labs for Last 24 Hours: Temp Pulse Resp BP Pulse Ox O2 Del Method O2 Flow Rate 98.0 F 96 H 22 123/79 99 Room Air 2 03/29/24 07:45 03/29/24 07:45 03/29/24 07:45 03/29/24 07:45 03/29/24 07:45 03/29/24 10:55 03/29/24 09:00 Laboratory Results - last 24 hr 03/28/24 20:49: WBC 6.6, RBC 3.15 L, Hgb 8.4 L, Hct 27.7 L, MCV 87.8, MCH 26.7 L , MCHC 30.4 L, RDW 28.9 H*, Plt Count 257, MPV 7.7, Neut % (Auto) 84.6 H, Lymph % (Auto) 7.2 L, [place] % (Auto) 4.9, Eos % (Auto) 2.8, Baso % (Auto) 0.5, Neut # (Auto) 5.6, Lymph # (Auto) 0.5 L, [place] # (Auto) 0.3, Eos # (Auto) 0.2, Baso # (Auto) 0.0, PT 62.2 H, INR 6.51 H, Sodium 136, Potassium 3.7, Chloride 98, Carbon Dioxide 30, Anion Gap 11.7, BUN 23 H, Creatinine 1.20 H, Estimated Creat Clear 71, Estimated GFR 46 L, Est GFR ( Amer) 55 L, Glucose 245 H, Calcium 9.2, Magnesium 1.6, Total Bilirubin 1.0, AST 27, ALT 18, Alkaline Phosphatase 106, Troponin I < 0.01, NT-Pro-B Natriuret Pep 1280 H, Total Protein 6.6, Albumin 4.0, Globulin 2.6, Albumin/Globulin Ratio 1.5, Lipase 99 03/28/24 21:59: Blood Type O Positive, Antibody Screen Negative 03/28/24 23:50: Troponin I < 0.01 03/29/24 02:45: Troponin I 0.01 03/29/24 06:30: WBC 6.3, RBC 3.12 L, Hgb 8.2 L, Hct 28.3 L, MCV 90.4, MCH 26.1 L , MCHC 28.9 L, RDW 29.6 H*, Plt Count 266, MPV 8.5, Neut % (Auto) 81.7 H, Lymph % (Auto) 8.9 L, [place] % (Auto) 5.2, Eos % (Auto) 3.6, Baso % (Auto) 0.6, Neut # (Auto) 5.2, Lymph # (Auto) 0.6 L, [place] # (Auto) 0.3, Eos # (Auto) 0.2, Baso # (Auto) 0.0, PT 23.7 H, INR 2.32 H, Sodium 140, Potassium 3.6, Chloride 97 L, Carbon Dioxide 34 H, Anion Gap 12.6, BUN 23 H, Creatinine 1.00, Estimated Creat Clear 83, Estimated GFR 56 L, Est GFR ( Amer) 68 D, Glucose 193 H D, Calcium 9.4, Magnesium 1.9 D, Total Bilirubin 1.0, AST 25, ALT 14, Alkaline Phosphatase 99, Total Protein 6.6, Albumin 4.0, Globulin 2.6, Albumin/Globulin Ratio 1.5 03/29/24 06:49: POC Glucose 212 H I & O for Last 24 hours: Intake & Output 03/26/24 03/27/24 03/28/24 03/29/24 23:59 23:59 23:59 23:59 Intake Total 370 / 370 Output Total 400 / 400 2099 Balance -400 / -400 -1730 / -1730 Weight 89.993 kg 89.471 kg Constitutional Constitutional: no acute distress, obese and chronically ill appearing *Routine HEENT Exam Head: Present normocephalic Eye: Present EOMI and PERRL ENT: Present mucous membranes moist *Routine Neck Exam Neck: Present supple; Absent lymphadenopathy *Routine Respiratory Exam Respiratory: Present rhonchi; Absent wheezes or crackles *Routine Cardiovascular Exam Cardiovascular: Present murmur (Mechanical systolic), click and irregularly irregular *Routine Abdominal Exam Abdominal: Present soft and normoactive bowel sounds; Absent tenderness *Routine Extremities Exam Extremities: Absent cyanosis, clubbing or edema *Routine Skin Exam Skin: Present warm; Absent rash *Routine Neurological Exam Neurological: Present alert, oriented X3 and moving all extremities; Absent altered mental status Results Data Completed and Pending Labs on day of discharge: Labs from last 24 hours 03/29/24 03/29/24 03/29/24 06:49 06:30 02:45 WBC 6.3 RBC 3.12 L Hgb 8.2 L Hct 28.3 L MCV 90.4 MCH 26.1 L MCHC 28.9 L RDW 29.6 H* Plt Count 266 MPV 8.5 Neut % (Auto) 81.7 H Lymph % (Auto) 8.9 L [place] % (Auto) 5.2 Eos % (Auto) 3.6 Baso % (Auto) 0.6 Neut # (Auto) 5.2 Lymph # (Auto) 0.6 L [place] # (Auto) 0.3 Eos # (Auto) 0.2 Baso # (Auto) 0.0 PT 23.7 H INR 2.32 H Sodium 140 Potassium 3.6 Chloride 97 L Carbon Dioxide 34 H Anion Gap 12.6 BUN 23 H Creatinine 1.00 Estimated Creat Clear 83 Estimated GFR 56 L Est GFR ( Amer) 68 D Glucose 193 H D POC Glucose 212 H Calcium 9.4 Magnesium 1.9 D Total Bilirubin 1.0 AST 25 ALT 14 Alkaline Phosphatase 99 Troponin I 0.01 NT-Pro-B Natriuret Pep Total Protein 6.6 Albumin 4.0 Globulin 2.6 Albumin/Globulin Ratio 1.5 Lipase Blood Type Antibody Screen 03/28/24 03/28/24 03/28/24 23:50 21:59 20:49 WBC 6.6 RBC 3.15 L Hgb 8.4 L Hct 27.7 L MCV 87.8 MCH 26.7 L MCHC 30.4 L RDW 28.9 H* Plt Count 257 MPV 7.7 Neut % (Auto) 84.6 H Lymph % (Auto) 7.2 L [place] % (Auto) 4.9 Eos % (Auto) 2.8 Baso % (Auto) 0.5 Neut # (Auto) 5.6 Lymph # (Auto) 0.5 L [place] # (Auto) 0.3 Eos # (Auto) 0.2 Baso # (Auto) 0.0 PT 62.2 H INR 6.51 H Sodium 136 Potassium 3.7 Chloride 98 Carbon Dioxide 30 Anion Gap 11.7 BUN 23 H Creatinine 1.20 H Estimated Creat Clear 71 Estimated GFR 46 L Est GFR ( Amer) 55 L Glucose 245 H POC Glucose Calcium 9.2 Magnesium 1.6 Total Bilirubin 1.0 AST 27 ALT 18 Alkaline Phosphatase 106 Troponin I < 0.01 < 0.01 NT-Pro-B Natriuret Pep 1280 H Total Protein 6.6 Albumin 4.0 Globulin 2.6 Albumin/Globulin Ratio 1.5 Lipase 99 Blood Type O Positive Antibody Screen Negative DS: Diagnosis Discharge Diagnosis (1) Atrial fibrillation, chronic: Status: Acute Code(s): I48.20 - Chronic atrial fibrillation, unspecified (2) Acute on chronic HFrEF (heart failure with reduced ejection fraction): Status: Acute Code(s): I50.23 - Acute on chronic systolic (congestive) heart failure (3) Supratherapeutic INR: Status: Acute Code(s): R79.1 - Abnormal coagulation profile (4) Dyspnea: Status: Acute Code(s): R06.00 - Dyspnea, unspecified Qualifiers: Dyspnea type: dyspnea on exertion Qualified Code(s): R06.09 - Other forms of dyspnea (5) Anemia: Status: Acute Code(s): D64.9 - Anemia, unspecified Qualifiers: Anemia type: unspecified type Qualified Code(s): D64.9 - Anemia, unspecified Meds Home Medications and Allergies Home Medications Medication Instructions Recorded Confirmed Type aspirin 81 mg tablet,delayed 81 mg PO DAILY 12/01/17 03/31/24 History release (Adult Low Dose Aspirin) oxycodone-acetaminophen 10 mg-325 1 tab PO QIDP PRN Moderate Pain 05/23/18 03/31/24 History mg tablet (Percocet) alprazolam 0.5 mg tablet (Xanax) 0.5 mg PO TIDP PRN Anxiety 11/29/19 03/31/24 History levothyroxine 25 mcg tablet 25 mcg PO DAILY 06/05/21 03/31/24 History insulin glargine 100 50 units SQ DAILY 02/22/22 03/31/24 History unit-lixisenatide 33 mcg/mL subcutaneous pen febuxostat 40 mg tablet 40 mg PO DAILY 02/09/23 03/31/24 History potassium chloride 20 mEq 20 meq PO BID 04/15/23 03/31/24 History tablet,extended release(part/cryst) Lactobacills gasseri-Bifidobac 1 cap PO DAILY 10/30/23 03/31/24 History bifidum,longum 1.5 billion cell capsule (Probiotic Colon Support) bisacodyl 5 mg tablet,delayed 5 mg PO DIRECTED PRN 10/30/23 03/31/24 History release (Gentle Laxative Constipation (bisacodyl)) calcitriol 0.25 mcg capsule 0.25 mcg PO DAILY 10/30/23 03/31/24 History warfarin 4 mg tablet 4 mg PO SUTUWETHSA 10/31/23 03/31/24 History warfarin 4 mg tablet 2 mg PO MOFR 11/25/23 03/31/24 History metoprolol succinate 100 mg 100 mg PO BID 30 days #60 tabs 11/29/23 03/31/24 Rx tablet,extended release 24 hr duloxetine 60 mg capsule,delayed 60 mg PO HS 03/06/24 03/31/24 History release albuterol 90 mcg/actuation aerosol 90 mcg inhalation Q4HP PRN soa 03/28/24 03/31/24 History inhaler levalbuterol HCl 1.25 mg/3 mL 1.25 mg inhalation Q6HP PRN 03/28/24 03/31/24 History solution for nebulization Shortness Of Breath bumetanide 2 mg tablet 2 mg PO BID 03/29/24 03/31/24 History dexlansoprazole 30 mg 30 mg PO DAILY 03/29/24 03/31/24 History capsule,biphase delayed release (Dexilant) metolazone 2.5 mg tablet 2.5 mg PO DAILY 30 days #30 tabs 03/31/24 Rx spironolactone 50 mg tablet 50 mg PO BID 30 days #60 tabs 03/31/24 Rx New Prescriptions to Start Prescriptions: Allergies Allergy/AdvReac Type Severity Reaction Status Date / Time codeine [CODEINE] Allergy Unknown nausea, Verified 03/21/24 12:35 swelling Corticosteroids Allergy Unknown Unknown Verified 03/21/24 12:35 (Glucocorticoids) allergy [CORTICOSTEROIDS reaction (GLUCOCORTICOIDS)] rosuvastatin [From CRESTOR] Allergy Unknown Unknown Verified 03/21/24 12:35 allergy reaction theophylline [From DAVID-DUR] Allergy Unknown Unknown Verified 03/21/24 12:35 allergy reaction Iodinated Contrast Media AdvReac Severe shuts Verified 03/21/24 12:35 [IODINATED CONTRAST- ORAL kidneys AND IV DYE] down and bleeding buprenorphine [From BUPRENEX] AdvReac Intermediate Nausea Verified 03/21/24 12:35 levofloxacin [From Levaquin] AdvReac Verified 03/29/24 03:25 lisinopril AdvReac Cough Verified 03/21/24 12:35 prednisone AdvReac Unknown Verified 03/21/24 12:35 allergy reaction sacubitril [From Entresto] AdvReac Hypotension Verified 03/21/24 12:35 valsartan [From Entresto] AdvReac Hypotension Verified 03/21/24 12:35 Discharge Plan Disposition Patient Disposition: Home, Self-Care Condition: Fair Follow up Plan Follow up with: Tod Sawyer MD [Staff Physician] - 04/10/24 10:00 am Reji Castro MD [Primary Care Provider] - 04/05/24 10:00 am Prescriptions/Medication Reconciliation: Continued aspirin [Adult Low Dose Aspirin] 81 mg tablet,delayed release (DR/EC) 81 mg PO DAILY oxycodone-acetaminophen [Percocet] 10-325 mg tablet 1 tab PO QIDP PRN (Reason: Moderate Pain) alprazolam [Xanax] 0.5 mg tablet 0.5 mg PO TIDP PRN (Reason: Anxiety) potassium chloride 20 mEq tablet,ER particles/crystals 20 meq PO BID duloxetine 60 mg capsule,delayed release(DR/EC) 60 mg PO HS Patient Comments: TAKE (1) CAPSULE BY MOUTH ONCE A DAY. levothyroxine 25 MCG tablet 25 mcg PO DAILY bisacodyl [Gentle Laxative (bisacodyl)] 5 mg Tablet,Delayed Release (Dr/Ec) 5 mg PO DIRECTED PRN (Reason: Constipation) Rx Instructions: every 3 days calcitriol 0.25 mcg Capsule 0.25 mcg PO DAILY Probiotic Colon Support 1.5 billion cell Capsule 1 cap PO DAILY warfarin 4 mg tablet 4 mg PO SUTUWETHSA Rx Instructions: 4 mg on wed, , wed, , sat warfarin 4 mg tablet 2 mg PO MOFR Patient Comments: TAKE 1 TABLET BY MOUTH ONCE A DAY. Rx Instructions: 2 mg on wednesday and wednesday metoprolol succinate 100 mg Tablet Extended Release 24 Hr 100 mg PO BID 30 Days Qty: 60 0RF insulin glargine-lixisenatide 3 ML insulin pen 50 units SQ DAILY febuxostat 40 mg tablet 40 mg PO DAILY albuterol 90 mcg/actuation Aerosol 90 mcg INHALATION Q4HP PRN (Reason: soa) levalbuterol HCl 1.25 mg/3 mL Solution For Nebulization 1.25 mg INHALATION Q6HP PRN (Reason: Shortness Of Breath) dexlansoprazole [Dexilant] 30 mg capsule,biphase delayed releas 30 mg PO DAILY Patient Comments: TAKE (1) CAPSULE BY MOUTH ONCE A DAY. bumetanide 2 mg tablet 2 mg PO BID No Action metolazone 2.5 mg Tablet 2.5 mg PO DAILY 30 Days Qty: 30 3RF spironolactone 50 mg Tablet 50 mg PO BID 30 Days Qty: 60 3RF Problem Reconciliation Problems Reviewed?: Yes Patient Discharge Instructions ACTIVITY: Continue current activity DIET: continue same diet Patient Instructions: Coumadin Vitamin K/ Diet, Coumadin Therapy Booklet Providers Primary Care Provider: Reji Castro Admit Provider: Neptali Herbert Attending Provider: Neptali Herbert
[2024-03-29] MEDS: WARFARIN 2MG TABLET 4 MG PO (11:33)
[2024-03-29 11:45] LABS: POC Glucose,Bedside 230 (70-110)
[2024-03-29] MEDS: SODIUM CHLORIDE 0.9% 10ML FLUSH SYRINGE 10 ML IV (11:56)
[2024-03-29 12:00] VITALS: BP 144/79; PULSE 70; PULSE 86; RESP 20; TEMP 36.4; O2SAT 99
[2024-03-29 12:21] LABS: INR 2.48 (0.9-1.1); Prothrombin Time 25.2 seconds (10.1-12.5)
--- NOTE | 2024-03-30 15:20 | CARE MANAGER ---
Contacted patient related to hospital discharge. She states that she is doing better. She had no new medications and is aware of follow up appointments. JEREMIAH Hillman
== END 2024-03-29 14:14 | disposition home or self-care (01) ==
LOC: ER 21:49 → 2ND 21:56
PROVIDERS: Nurse Practitioner Family; Physician Assistant; Admitting Provider Internal Medicine Adolescent Medicine; Emergency Provider Emergency Medicine; PCP Internal Medicine Adolescent Medicine; Visit Provider Internal Medicine Adolescent Medicine
DX: I50.23 Acute on chronic systolic (congestive) heart failure (principal); I48.20 Chronic atrial fibrillation, unspecified; R79.1 Abnormal coagulation profile; D59.10 Autoimmune hemolytic anemia, unspecified; I13.0 Hypertensive heart and chronic kidney disease with heart failure and stage 1 through stage 4 chronic kidney disease, or unspecified chronic kidney disease; E78.5 Hyperlipidemia, unspecified; I42.9 Cardiomyopathy, unspecified; E11.22 Type 2 diabetes mellitus with diabetic chronic kidney disease; N18.32 Chronic kidney disease, stage 3b; J44.9 Chronic obstructive pulmonary disease, unspecified; K21.9 Gastro-esophageal reflux disease without esophagitis; R06.09 Other forms of dyspnea; Z79.4 Long term (current) use of insulin; Z79.01 Long term (current) use of anticoagulants; Z79.899 Other long term (current) drug therapy; Z95.2 Presence of prosthetic heart valve
CPT/HCPCS: 36415; 71045; 80053; 82962; 83690; 83735; 83880; 84484; 85025; 85610; 86850; 93005; 99285; G0378; J1642

== ENCOUNTER 2024-03-31 08:13 | Day surgery (SDC) | payer MEDICARE, MEDICAID, SELFPAY ==
[2024-03-31] VITALS (11 sets, daily range): BP systolic 126–142; BP diastolic 64–88; PULSE 75–92; RESP 16–20; TEMP 36.6; O2SAT 90–100; BMI 32.9
--- NOTE | 2024-03-31 07:07 | IR_ITS ---
APPROVED REPORT Patient Location: Outpatient PROCEDURES Right heart catheterization INDICATION Pulmonary hypertension, Systolic congestive heart failure, Malfunctioning CardioMEMS Informed consent was obtained prior to the procedure. COMPLICATIONS None Estimated Blood Loss: Less than 10 mls TECHNIQUE One percent lidocaine was used to anesthetize the right anterior aspect of the neck. A director of housing needle was used to identify the right internal jugular vein. Following this a larger cannulation needle was used to cannulate the right internal jugular vein and a wire was passed into the vein. Prior to the 7 [place] sheath being inserted the wire was confirmed under fluoroscopic guidance to be in the inferior vena cava. A 7 [place] sheath was introduced and a [place]-Violeta catheter was floated using hemodynamic waveforms in the pulmonary artery, right ventricle , and right atrium. Saturations were obtained in the pulmonary artery and the right atrium. At the end of the procedure the patient was transferred to the postop holding area in stable condition for sheath removal. ANGIOGRAPHIC RESULTS Right atrial pressure 20 mmHg Pulmonary artery pressure 50/25 mmHg Pulmonary artery occlusion pressure 25 mmHg Right atrial saturation 54% Pulmonary artery saturation 49% Aortic saturation 100% Hemoglobin 8.2 IMPRESSION Moderate pulmonary hypertension Increased intracardial pulmonary filling pressures consistent with fluid overload PLAN 1. Increase diuresis 2. Treatment of systolic heart failure 3. Patient is likely a candidate for AICD placement Electronically signed by : Tod Sawyer MD 03/31/2024 10:01:44
[2024-03-31 09:12] LABS: INR 2.39 (0.9-1.1); Prothrombin Time 24.4 seconds (10.1-12.5)
[2024-03-31] MEDS: HEPARIN 1,000 UNITS/500ML NS (CATH LAB) 3000 UNIT IV (09:30)
[2024-03-31] MEDS: LIDOCAINE 1% 10ML MDV 20 ML IJ (09:30)
[2024-03-31] MEDS: 0.9 % SODIUM CHLORIDE 500 ML 25 ML IV (09:30)
[2024-03-31] MEDS: diphenhydrAMINE 50MG/ML VIAL 50 MG IV (09:31)
[2024-03-31] MEDS: MIDAZOLAM HCL 1MG/1ML 5ML VIAL 1 MG IV (09:47)
[2024-03-31] MEDS: FENTANYL 100MCG/2ML VIAL 50 MCG IV (09:48)
[2024-03-31 12:39] LABS: CATHL Arterial O2 SAT 50 % (90-100)
[2024-03-31 12:40] LABS: CATHL Venous O2 SAT 55 % (75-80)
== END 2024-03-31 12:39 | disposition home or self-care (01) ==
PROVIDERS: PCP Internal Medicine Adolescent Medicine; Visit Provider Internal Medicine
DX: I42.9 Cardiomyopathy, unspecified (principal); M79.602 Pain in left arm; I50.23 Acute on chronic systolic (congestive) heart failure; E78.5 Hyperlipidemia, unspecified; I13.0 Hypertensive heart and chronic kidney disease with heart failure and stage 1 through stage 4 chronic kidney disease, or unspecified chronic kidney disease; R06.09 Other forms of dyspnea; K21.9 Gastro-esophageal reflux disease without esophagitis; I50.32 Chronic diastolic (congestive) heart failure; D64.9 Anemia, unspecified; J44.9 Chronic obstructive pulmonary disease, unspecified; I27.20 Pulmonary hypertension, unspecified; Z79.01 Long term (current) use of anticoagulants; Z79.899 Other long term (current) drug therapy; N18.4 Chronic kidney disease, stage 4 (severe); I48.20 Chronic atrial fibrillation, unspecified; E11.22 Type 2 diabetes mellitus with diabetic chronic kidney disease; Z79.4 Long term (current) use of insulin
CPT/HCPCS: 82810; 85610; 93451; 99152; C1894; J1642; J1644

== ENCOUNTER 2024-04-03 09:18 | Outpatient (CLI) | payer MEDICARE, MEDICAID, SELFPAY ==
[2024-04-03] MEDS: SODIUM CHLORIDE 0.9% 10ML FLUSH SYRINGE 10 ML IV (10:10)
[2024-04-03 10:40] LABS: Chloride 91 mmol/L (98-107); Potassium 4.5 mmoL/L (3.5-5.1); Sodium 134 mmol/L (136-145)
[2024-04-03 10:43] LABS: Anion Gap 14.5 mEq/L (5-15); Blood Urea Nitrogen 45 mg/dl (7-17); Calcium 10.1 mg/dl (8.4-10.2); Carbon Dioxide 33 mmol/L (22.0-30.0); Estimated Glomerular Filt Rate 33 ml/min (>60); GFR (African American) 40 ML/MIN (>60); Glucose 329 mg/dl (74-100)
== END 2024-04-03 10:15 | disposition home or self-care (01) ==
LOC: INF 09:19
PROVIDERS: PCP Internal Medicine Adolescent Medicine; Visit Provider Internal Medicine
DX: R06.09 Other forms of dyspnea (principal); I10 Essential (primary) hypertension; I27.20 Pulmonary hypertension, unspecified; I20.89 Other forms of angina pectoris
CPT/HCPCS: 36591; 80048; J1642

== ENCOUNTER 2024-04-05 15:43 | Outpatient (CLI) | payer MEDICARE, MEDICAID, SELFPAY ==
[2024-04-05 15:56] VITALS: BMI 35.1
[2024-04-05] MEDS: SODIUM CHLORIDE 0.9% 10ML FLUSH SYRINGE 10 ML IV (15:57)
--- NOTE | 2024-04-05 16:03 | MR_ITS ---
FINAL REPORT CLINICAL HISTORY: right shoulder/arm/hand pain/numbness COMPARISON: None FINDINGS: MRI RIGHT SHOULDER WITH AND WITHOUT CONTRAST: Multiplanar imaging of the right shoulder was performed, and there is motion on many sequences which markedly limits overall image quality. No significant bone marrow edema or fracture is seen. There is a partial tear of the articular surface of the supraspinatus tendon involving less than 50% of the thickness of that tendon. The infraspinatus and subscapularis tendons appear intact. The acromioclavicular joint is unremarkable in appearance. A small glenohumeral joint effusion is present. The LHBT is normal in appearance. There is degenerative signal in the posterior labrum, that may represent a small posterior labral tear. No abnormal enhancement is identified post intravenous contrast administration. IMPRESSION: Marked degradation of image quality secondary to motion artifact. Partial tear of the articular surface of the supraspinatus tendon involving less than 50% of the thickness of that tendon. Degenerative signal is present in the posterior labrum, that may represent a posterior labral tear. Reviewed, Interpreted and Dictated by Pravin Crespo III, MD Transcribed by Luanne Castaneda Authenticated and [facility]
[2024-04-05 16:05] LABS: Basophils # 0.1 K/mm3 (0-0.2); Basophils % 1.3 % (0.1-2.0); Eosinophils # 0.3 K/mm3 (0.0-0.4); Eosinophils % 3.7 % (0.1-12.0); Hematocrit 34.6 % (37.0-47.0); Hemoglobin 10.4 g/dL (12.2-16.2); Lymphocytes # 0.8 K/mm3 (0.7-4.5); Lymphocytes % 9.5 % (10-50); Mean Corpuscular HGB Conc 30.2 g/dL (31.8-35.4); Mean Corpuscular Hemoglobin 26.4 pg (27.0-31.2); Mean Corpuscular Volume 87.4 fl (81-99); Mean Platelet Volume 8.1 fl (7.4-10.4); Monocytes # 0.6 K/mm3 (0.1-1.0); Monocytes % 7.1 % (1.7-9.3); Neutrophils # 6.4 K/mm3 (1.8-7.8); Neutrophils % 78.5 % (37.0-80.0); Platelet Count 315 K/mm3 (142-424); Red Blood Count 3.96 M/mm3 (4.20-5.40); Red Cell Distribution Width 25.7 % (11.5-17.5); White Blood Count 8.1 K/mm3 (4.8-10.8)
[2024-04-05 16:07] LABS: Chloride 90 mmol/L (98-107); Potassium 3.9 mmoL/L (3.5-5.1); Sodium 135 mmol/L (136-145)
[2024-04-05 16:10] LABS: Anion Gap 14.9 mEq/L (5-15); Blood Urea Nitrogen 60 mg/dl (7-17); Calcium 10.6 mg/dl (8.4-10.2); Carbon Dioxide 34 mmol/L (22.0-30.0); Creatinine Clearance Estimated 54 mL/min (50-200); Estimated Glomerular Filt Rate 35 ml/min (>60); GFR (African American) 43 ML/MIN (>60); Glucose 194 mg/dl (74-100)
[2024-04-05] MEDS: SODIUM CHLORIDE 0.9% 10ML SYR (RAD ONLY) 10 ML IV (17:09)
[2024-04-05] MEDS: GADOTERIDOL INJ 17ML SYRINGE 17 ML IV (17:09)
== END 2024-04-05 16:00 | disposition home or self-care (01) ==
LOC: RAD 15:44 → INF 15:56
PROVIDERS: PCP Internal Medicine Adolescent Medicine; Visit Provider Internal Medicine
DX: I50.23 Acute on chronic systolic (congestive) heart failure (principal); R20.0 Anesthesia of skin; I27.20 Pulmonary hypertension, unspecified; I42.9 Cardiomyopathy, unspecified; M79.602 Pain in left arm; E78.5 Hyperlipidemia, unspecified; I10 Essential (primary) hypertension; K21.9 Gastro-esophageal reflux disease without esophagitis; J44.9 Chronic obstructive pulmonary disease, unspecified; R06.09 Other forms of dyspnea; I50.32 Chronic diastolic (congestive) heart failure; D64.9 Anemia, unspecified; M25.511 Pain in right shoulder; M79.601 Pain in right arm
CPT/HCPCS: 36591; 73223; 80048; 85025; A9576; J1642

== ENCOUNTER 2024-04-24 12:32 | Outpatient (CLI) | payer MEDICARE, MEDICAID, SELFPAY ==
--- NOTE | 2024-04-24 12:35 | XR_ITS ---
FINAL REPORT CLINICAL HISTORY: BRONCHITIS COMPARISON: 03/28/2024 FINDINGS: Two views of the chest were obtained. The patient has undergone a prior midline sternotomy. Cardiomegaly is once again identified, unchanged since the prior exam. A right chest port is again noted. The mediastinum is normal. No acute pulmonary abnormality is identified. There is no pneumothorax. The bony thorax is intact. IMPRESSION: No active cardiopulmonary disease. Cardiomegaly, unchanged since the prior exam of March 28. Reviewed, Interpreted and Dictated by Pravin Crespo III, MD Transcribed by Luanne Castaneda Authenticated and . [facility]
[2024-04-24 13:06] LABS: PHA INR Fingerstick 3.1 (0.9-1.1)
== END 2024-04-24 13:09 ==
PROVIDERS: PCP Internal Medicine Adolescent Medicine; Visit Provider Physician Assistant
DX: Z79.01 Long term (current) use of anticoagulants (principal); Z51.81 Encounter for therapeutic drug level monitoring; Z95.2 Presence of prosthetic heart valve; J20.9 Acute bronchitis, unspecified; Z87.891 Personal history of nicotine dependence
CPT/HCPCS: 71046; 85610; 99211; G0463

== ENCOUNTER 2024-04-28 09:59 | Outpatient (CLI) | payer MEDICARE, MEDICAID, SELFPAY ==
[2024-04-28 10:24] VITALS: BMI 69.6
[2024-04-28 11:02] LABS: Hemoglobin 7.4 g/dL (12.2-16.2)
[2024-04-28 11:03] LABS: Blood Urea Nitrogen 53 mg/dl (7-17); Creatinine Clearance Estimated 30 mL/min (50-200); Estimated Glomerular Filt Rate 31 ml/min (>60); GFR (African American) 37 ML/MIN (>60)
--- NOTE | 2024-04-28 12:55 | PC.NURSE ---
1255-robert hunt, soap inspector here to witness type and screen;pt to return 04/29/24 for blood transfusion.
[2024-04-28] MEDS: SODIUM CHLORIDE 0.9% 10ML FLUSH SYRINGE 10 ML IV (12:56)
[2024-04-28 13:38] LABS: Iron 35 ug/dL (37-170)
[2024-04-28 13:47] LABS: Total Iron Binding Capacity 416 ug/dL (265-497)
[2024-04-28 14:42] LABS: Ferritin 14.6 ng/ml (11.1-264)
== END 2024-04-28 12:57 | disposition home or self-care (01) ==
LOC: RAD 10:00 → INF 10:34
PROVIDERS: Internal Medicine Medical Oncology; PCP Internal Medicine Adolescent Medicine; Visit Provider Internal Medicine
DX: R06.09 Other forms of dyspnea; I20.89 Other forms of angina pectoris; I10 Essential (primary) hypertension; I27.20 Pulmonary hypertension, unspecified; I50.32 Chronic diastolic (congestive) heart failure; I50.23 Acute on chronic systolic (congestive) heart failure; I42.8 Other cardiomyopathies; D64.9 Anemia, unspecified; D50.8 Other iron deficiency anemias
CPT/HCPCS: 36415; 36591; 75561; 82565; 82728; 83540; 83550; 84520; 85014; 85018; 86850; A9576; J1642

== ENCOUNTER 2024-04-29 08:43 | Outpatient (CLI) | payer MEDICARE, MEDICAID, SELFPAY ==
[2024-04-29] VITALS (13 sets, daily range): BP systolic 102–129; BP diastolic 53–81; PULSE 63–95; RESP 16–20; TEMP 36.3–36.8; O2SAT 92–99; BMI 31.6
[2024-04-29 10:07] LABS: INR 2.88 (0.9-1.1)
[2024-04-29 15:13] LABS: Hematocrit 24.8 % (37.0-47.0); Hemoglobin 7.6 g/dL (12.2-16.2)
== END 2024-04-29 23:59 | disposition home or self-care (01) ==
LOC: INF 08:45
PROVIDERS: PCP Internal Medicine Adolescent Medicine; Visit Provider Internal Medicine Medical Oncology
DX: Z79.01 Long term (current) use of anticoagulants (principal)
CPT/HCPCS: 96374; 36430; 36591; 85014; 85018; 85610; G0463; J1642; P9016

== ENCOUNTER 2024-05-02 11:34 | Outpatient (CLI) | payer MEDICARE, MEDICAID, SELFPAY ==
[2024-05-02] VITALS (11 sets, daily range): BP systolic 98–112; BP diastolic 53–73; PULSE 86–91; RESP 16–18; TEMP 36.8–37; O2SAT 98–100; BMI 27.1
[2024-05-02 12:01] LABS: Hematocrit 24.9 % (37.0-47.0); Hemoglobin 7.4 g/dL (12.2-16.2)
[2024-05-02] MEDS: diphenhydrAMINE 25MG CAPSULE 25 MG PO (13:05)
[2024-05-02] MEDS: ACETAMINOPHEN 325MG TAB 650 MG PO (13:05)
[2024-05-02] MEDS: SODIUM CHLORIDE 0.9% 250ML BAG 250 ML IV (13:48)
[2024-05-02] MEDS: SODIUM CHLORIDE 0.9% 10ML FLUSH SYRINGE 10 ML IV (16:55)
== END 2024-05-02 16:55 | disposition home or self-care (01) ==
LOC: INF 11:35
PROVIDERS: PCP Internal Medicine Adolescent Medicine; Visit Provider Internal Medicine Medical Oncology
DX: Z79.01 Long term (current) use of anticoagulants (principal); Z95.2 Presence of prosthetic heart valve
CPT/HCPCS: 36430; 85014; 85018; 86850; J1642; P9016

== ENCOUNTER 2024-05-02 16:54 | Emergency (ER) | payer MEDICARE, MEDICAID, SELFPAY ==
[2024-05-02 17:10] VITALS: BP 114/68; PULSE 88; RESP 18; TEMP 36.6; O2SAT 96; BMI 31.7
--- NOTE | 2024-05-02 17:12 | ED_ITS ---
Discharge Plan Disposition Patient Disposition: Home, Self-Care Condition: Good Prescriptions Prescriptions: New doxycycline monohydrate 100 mg tablet 100 mg PO Q12 10 Days Qty: 20 0RF benzonatate 100 mg capsule 100 mg PO TIDP PRN (Reason: Cough) Qty: 30 0RF guaifenesin [Mucinex] 600 mg tablet extended release 12hr 600 - 1,200 mg PO BIDP PRN (Reason: Congestion) Qty: 30 0RF No Action aspirin [Adult Low Dose Aspirin] 81 mg tablet,delayed release (DR/EC) 81 mg PO DAILY oxycodone-acetaminophen [Percocet] 10-325 mg tablet 1 tab PO QIDP PRN (Reason: Moderate Pain) alprazolam [Xanax] 0.5 mg tablet 0.5 mg PO TIDP PRN (Reason: Anxiety) potassium chloride 20 mEq tablet,ER particles/crystals 20 meq PO BID duloxetine 60 mg capsule,delayed release(DR/EC) 60 mg PO HS Patient Comments: TAKE (1) CAPSULE BY MOUTH ONCE A DAY. bumetanide 2 mg tablet 2 mg PO BID Qty: 60 5RF levothyroxine 25 MCG tablet 25 mcg PO DAILY bisacodyl [Gentle Laxative (bisacodyl)] 5 mg Tablet,Delayed Release (Dr/Ec) 5 mg PO DIRECTED PRN (Reason: Constipation) Rx Instructions: every 3 days calcitriol 0.25 mcg Capsule 0.25 mcg PO DAILY Probiotic Colon Support 1.5 billion cell Capsule 1 cap PO DAILY warfarin 4 mg tablet 4 mg PO SUTUWETHSA Rx Instructions: 4 mg on wed, , wed, , wed warfarin 4 mg tablet 2 mg PO MOFR Patient Comments: TAKE 1 TABLET BY MOUTH ONCE A DAY. Rx Instructions: 2 mg on wednesday and wednesday metoprolol succinate 100 mg Tablet Extended Release 24 Hr 100 mg PO BID 30 Days Qty: 60 0RF metolazone 2.5 mg Tablet 2.5 mg PO DAILY 30 Days Qty: 30 3RF spironolactone 50 mg Tablet 50 mg PO BID 30 Days Qty: 60 3RF insulin glargine-lixisenatide 3 ML insulin pen 50 units SQ DAILY febuxostat 40 mg tablet 40 mg PO DAILY albuterol 90 mcg/actuation Aerosol 90 mcg INHALATION Q4HP PRN (Reason: soa) levalbuterol HCl 1.25 mg/3 mL Solution For Nebulization 1.25 mg INHALATION Q6HP PRN (Reason: Shortness Of Breath) dexlansoprazole [Dexilant] 30 mg capsule,biphase delayed releas 30 mg PO DAILY Patient Comments: TAKE (1) CAPSULE BY MOUTH ONCE A DAY. Referrals Follow up/Referrals: Reji Castro MD [Primary Care Provider] - See instructions Activity Restrictions/Add. Instructions Additional Instructions/Restrictions: Drink plenty of fluids. Take tylenol for pain or fever. Stop the cefdinir that you are on. Start the doxycycyline that we prescribed. Follow up with your regular doctor. Call to get an appointment to be rechecked there within the next 24 to 48 hours. GO TO THE ER FOR ANY WORSENING SYMPTOMS Clinical Impressions Clinical Impression: COPD exacerbation Instructions Patient Instructions: Chronic Obstructive Pulmonary Disease, DI for Chronic Obstructive Pulmonary Disease, Doxycycline Discharge ED Provider: Neptali Johnson [facility] General Stated complaint: cough, wheezing Time Seen by Provider: 05/02/24 17:11 History of Present Illness Provider Complaint: She states that for the past 7 days she has had chest congestion and a productive cough. She was prescribed cefdinir by her pcp. She states that it does not seem to be working very well. She cannot take steroids. She is allergic to levaquin. She has a history of copd. She has been using her breathing treatments at home as prescribed. Related Data Home Medications Medication Instructions Recorded Confirmed aspirin 81 mg tablet,delayed 81 mg PO DAILY 12/01/17 05/02/24 release (Adult Low Dose Aspirin) oxycodone-acetaminophen 10 mg-325 1 tab PO QIDP PRN Moderate Pain 05/23/18 05/02/24 mg tablet (Percocet) alprazolam 0.5 mg tablet (Xanax) 0.5 mg PO TIDP PRN Anxiety 11/29/19 05/02/24 levothyroxine 25 mcg tablet 25 mcg PO DAILY 06/05/21 05/02/24 insulin glargine 100 50 units SQ DAILY 02/22/22 05/02/24 unit-lixisenatide 33 mcg/mL subcutaneous pen febuxostat 40 mg tablet 40 mg PO DAILY 02/09/23 05/02/24 potassium chloride 20 mEq 20 meq PO BID 04/15/23 05/02/24 tablet,extended release(part/cryst) Lactobacills gasseri-Bifidobac 1 cap PO DAILY 10/30/23 05/02/24 bifidum,longum 1.5 billion cell capsule (Probiotic Colon Support) bisacodyl 5 mg tablet,delayed 5 mg PO DIRECTED PRN 10/30/23 05/02/24 release (Gentle Laxative Constipation (bisacodyl)) calcitriol 0.25 mcg capsule 0.25 mcg PO DAILY 10/30/23 05/02/24 warfarin 4 mg tablet 4 mg PO SUTUWETHSA 10/31/23 05/02/24 warfarin 4 mg tablet 2 mg PO MOFR 11/25/23 05/02/24 duloxetine 60 mg capsule,delayed 60 mg PO HS 03/06/24 05/02/24 release albuterol 90 mcg/actuation aerosol 90 mcg inhalation Q4HP PRN soa 03/28/24 05/02/24 inhaler levalbuterol HCl 1.25 mg/3 mL 1.25 mg inhalation Q6HP PRN 03/28/24 05/02/24 solution for nebulization Shortness Of Breath dexlansoprazole 30 mg 30 mg PO DAILY 03/29/24 05/02/24 capsule,biphase delayed release (Dexilant) Previous Rx's Medication Instructions Recorded metoprolol succinate 100 mg 100 mg PO BID 30 days #60 tabs 11/29/23 tablet,extended release 24 hr metolazone 2.5 mg tablet 2.5 mg PO DAILY 30 days #30 tabs 03/31/24 spironolactone 50 mg tablet 50 mg PO BID 30 days #60 tabs 03/31/24 bumetanide 2 mg tablet 2 mg PO BID #60 tabs 04/19/24 benzonatate 100 mg capsule 100 mg PO TIDP PRN Cough #30 caps 05/02/24 doxycycline monohydrate 100 mg 100 mg PO Q12 10 days #20 tabs 05/02/24 tablet guaifenesin 600 mg tablet, 600 - 1,200 mg (1 - 2 x 600 mg) PO 05/02/24 extended release 12 hr (Mucinex) BIDP PRN Congestion #30 tabs Allergies Allergy/AdvReac Type Severity Reaction Status Date / Time codeine [CODEINE] Allergy Unknown nausea, Verified 05/02/24 17:22 swelling Corticosteroids Allergy Unknown Unknown Verified 05/02/24 17:22 (Glucocorticoids) allergy [CORTICOSTEROIDS reaction (GLUCOCORTICOIDS)] rosuvastatin [From CRESTOR] Allergy Unknown Unknown Verified 05/02/24 17:22 allergy reaction theophylline [From DAVID-DUR] Allergy Unknown Unknown Verified 05/02/24 17:22 allergy reaction Iodinated Contrast Media AdvReac Severe shuts Verified 05/02/24 17:22 [IODINATED CONTRAST- ORAL kidneys AND IV DYE] down and bleeding buprenorphine [From BUPRENEX] AdvReac Intermediate Nausea Verified 05/02/24 17:22 levofloxacin [From Levaquin] AdvReac Verified 05/02/24 17:22 lisinopril AdvReac Cough Verified 05/02/24 17:22 prednisone AdvReac Unknown Verified 05/02/24 17:22 allergy reaction sacubitril [From Entresto] AdvReac Hypotension Verified 05/02/24 17:22 valsartan [From Entresto] AdvReac Hypotension Verified 05/02/24 17:22 PFSH PFS Disclaimer: The information contained in this section may have been updated after the patient was seen, as this information can be updated by other users. Medical History Atrial fibrillation, chronic COPD exacerbation CHF exacerbation Anemia Systolic CHF Typical angina Dyspnea Rib fracture Blood transfusion reaction Autoimmune hemolytic anemia Arthritis Hernia Sinus problem Rheumatic heart disease Hypothyroidism Polyarthralgia Pulmonary edema HLD (hyperlipidemia) HTN (hypertension) CAD (coronary artery disease) DM type 2 (diabetes mellitus, type 2) DVT (deep venous thrombosis) Cardiomyopathy Arrhythmia Liver disease Thyroid disease Valvular heart disease Hypertension Hyperlipidemia GERD (gastroesophageal reflux disease) COPD (chronic obstructive pulmonary disease) Class 1 obesity CKD (chronic kidney disease) stage 3, GFR 30-59 ml/min Acute on chronic HFrEF (heart failure with reduced ejection fraction) Coronary artery disease Congestive heart failure, NYHA class III NYHA class 3 acute on chronic systolic heart failure Diabetes mellitus Hypertensive heart disease CHF (congestive heart failure) Diastolic heart failure Tricuspid valve regurgitation snf current use of anticoagulants with INR goal of 2.5-3.5 Surgical History Mitral valve replaced History of colon resection H/O tubal ligation History of angioplasty History of renal stent History of ureteroscopy History of tubal ligation History of hernia repair History of cardiac catheterization History of mitral valve replacement with mechanical valve Family History Other Breast cancer COPD (chronic obstructive pulmonary disease) Colon cancer Family history of acute heart failure Family history of hyperlipidemia Family history of hypertension Family history of myocardial infarction Hypertension Stroke Social History Smoking Status: Former smoker tobacco type: cigarettes packs per day: 1 smoking status stop date: 01/09/2006 quit status: quit date established second hand exposure: Yes alcohol intake: never substance use type: denies use current occupational status: retired and disabled Travel in the last 8 weeks: None adopted: No caregiver/support person: No foster care: No household members: significant other housing: house lives independently: Yes marital status: life partner education level: college service: No snf: No current occupational exposures/hazards: No sexually active: Yes how many partners: 1 are you practicing safe sex: Yes diet: diabetic well-balanced diet: about half the time caffeine: No eating out: rarely or never during the past year weight has: remained stable bhavya/cheondoism: Zoroastrianism special bhavya needs: No agree to transfusion: Yes helmet use: No water heater temp set < 120 deg: Yes working smoke detector in home: Yes fire extinguisher in home: Yes carbon monox detector in home: Yes firearms in home: No do you feel safe at home: Yes victim of physical abuse: No victim of emotional abuse: No victim of sexual abuse: No would you like helpful sources: No ROS Obtained: Yes All systems reviewed & no additional complaints except as documented Constitutional Constitutional: Reports poor appetite Eyes Eyes: Reports system reviewed and no additional complaints, except as documented ENT Ears, Nose, Mouth, and Throat: Reports as per HPI Cardiovascular Cardiovascular: Reports system reviewed and no additional complaints, except as documented and Denies chest pain Respiratory Respiratory: Denies shortness of breath, Reports chest congestion, Reports cough, Denies stridor and Denies wheezing Gastrointestinal Gastrointestingal: Reports system reviewed and no additional complaints, except as documented; Denies abdominal pain, diarrhea or vomiting Musculoskeletal Musculoskeletal: Reports system reviewed and no additional complaints, except as documented and Denies arthralgias Integumentary/Breasts Skin/Breast: Reports system reviewed and no additional complaints, except as documented and Denies rash Neurologic Neurologic: Denies paresthesias Allergic/Immunologic Allergic/Immunologic: Denies wheezing Physical Exam General General appearance: alert and in no apparent distress Eye Eye exam: Present normal appearance, PERRL and EOMI ENT ENT exam: Present mucous membranes moist and normal external ear exam Expanded ENT Exam External ear exam: Present normal external inspection TM/Canal exam: Bilateral TM: erythema and bulging Nose exam: Absent sinus tenderness Nasal speculum exam: Bilateral: normal Mouth exam: Present normal external inspection; Absent drooling Teeth exam: Present normal inspection Throat exam: Present tonsillar erythema and tonsillomegaly Neck Neck exam: Present normal inspection, full ROM and trachea midline; Absent tenderness, lymphadenopathy or thyromegaly Chest Chest inspection: Present normal inspection and symmetric chest wall rise; Absent tenderness or rash Respiratory Respiratory exam: Present normal lung sounds bilaterally; Absent respiratory distress, wheezes, stridor or accessory muscle use Cardiovascular Cardiovascular exam: Present regular rate, normal rhythm and normal heart sounds Abdominal Exam Abdominal exam: Present soft; Absent distention, tenderness, guarding, rebound or rigidity Extremities Exam Extremities exam: Present normal inspection, full ROM and normal capillary refill; Absent tenderness or calf tenderness Back Exam Back exam: Present normal inspection and full ROM; Absent tenderness Neurological Exam Neurological exam: Present alert and oriented X3 Psychiatric Psychiatric exam: Present normal affect and normal mood Skin Skin exam: Present warm, dry, intact and normal color Lymphatic Lymphatic Findings: no adenopathy Medical Decision Making Medical Records Medical records reviewed: No I reviewed the patient's medical records. Jeancarlos Inquiry Pt receiving controlled substance: No Radiology Data #1: Image(s): Chest Image Reviewed: Yes I reviewed the patient's radiology image and Yes I have reviewed radiologist's interpretation Preliminary Findings: No Infiltrates Seen Accession No. : [id number] Patient Name / ID : RONI NGUYEN / [id number] Exam Date : 05/02/2024 17:10:50 ( Final ) Study Comment : Sex / Age : F / [id number] Creator : ERIK NEGRETE MD Dictator : Rosin Barrel Filler : Nutrition And Dietetics Instructor : ERIK NEGRETE MD Approver2 : Report Date : 05/02/2024 17:35:54 My Comment : PROCEDURE INFORMATION: Exam: XR Chest Exam date and time: 05/02/2024 5:10 PM Age: 59 years old Clinical indication: Cough TECHNIQUE: Imaging protocol: Radiologic exam of the chest. Views: 2 views. COMPARISON: CR XR CHEST 2V 04/24/2024 12:38 PM FINDINGS: Tubes, catheters and devices: Right chest port in place with catheter terminating at the cavoatrial junction. Lungs: Clear lungs. Unchanged pulmonary vascular congestion. Pleural spaces: Normal. No pleural effusion. No pneumothorax. Heart/Mediastinum: Unchanged marked cardiomegaly. Status post mitral valve replacement. Bones/joints: Status post sternotomy. IMPRESSION: 1. Unchanged marked cardiomegaly. 2. No acute findings.
--- NOTE | 2024-05-02 17:15 | XR_ITS ---
PROCEDURE INFORMATION: Exam: XR Chest Exam date and time: 05/02/2024 5:10 PM Age: 59 years old Clinical indication: Cough TECHNIQUE: Imaging protocol: Radiologic exam of the chest. Views: 2 views. COMPARISON: CR XR CHEST 2V 04/24/2024 12:38 PM FINDINGS: Tubes, catheters and devices: Right chest port in place with catheter terminating at the cavoatrial junction. Lungs: Clear lungs. Unchanged pulmonary vascular congestion. Pleural spaces: Normal. No pleural effusion. No pneumothorax. Heart/Mediastinum: Unchanged marked cardiomegaly. Status post mitral valve replacement. Bones/joints: Status post sternotomy. IMPRESSION: 1. Unchanged marked cardiomegaly. 2. No acute findings.
[2024-05-02] MEDS: cefTRIAXone 1GM VIAL 1 GM IM (17:59)
[2024-05-02] MEDS: LIDOCAINE 1% 5ML PF VIAL IM (17:59)
[2024-05-02 18:22] VITALS: BP 114/68; PULSE 88; RESP 18; TEMP 36.6; O2SAT 96
== END 2024-05-02 18:22 | disposition home or self-care (01) ==
PROVIDERS: Emergency Provider Nurse Practitioner Family; PCP Internal Medicine Adolescent Medicine
DX: J44.1 Chronic obstructive pulmonary disease with (acute) exacerbation (principal); R06.2 Wheezing; R05.9 Cough, unspecified; Z87.891 Personal history of nicotine dependence
CPT/HCPCS: 36430; 71046; 85014; 85018; 86850; 96372; 99212; 99214; G0463; J0696; J1642; P9016

== ENCOUNTER 2024-05-04 11:36 | Outpatient (CLI) | payer MEDICARE, MEDICAID, SELFPAY ==
[2024-05-04 12:05] VITALS: BP 119/68; PULSE 85; RESP 16; TEMP 36.6; O2SAT 97
[2024-05-04 12:35] VITALS: BP 95/49; PULSE 92; RESP 16
== END 2024-05-04 12:50 | disposition home or self-care (01) ==
LOC: INF 11:38
PROVIDERS: PCP Internal Medicine Adolescent Medicine; Visit Provider Internal Medicine Medical Oncology
DX: D50.9 Iron deficiency anemia, unspecified; Z79.899 Other long term (current) drug therapy; Z51.12 Encounter for antineoplastic immunotherapy
CPT/HCPCS: 96375; 96365; J1439; J1642

== ENCOUNTER 2024-05-11 10:53 | Outpatient (CLI) | payer MEDICARE, MEDICAID, SELFPAY ==
[2024-05-11 11:24] VITALS: BP 111/66; PULSE 97; RESP 16; TEMP 36.7; O2SAT 97
[2024-05-11 12:04] VITALS: BP 132/77; PULSE 88; RESP 16; TEMP 36.7; O2SAT 97
[2024-05-11 12:33] VITALS: BMI 71.8
[2024-05-11 13:01] LABS: Basophils # 0.1 K/mm3 (0-0.2); Basophils % 1.1 % (0.1-2.0); Eosinophils # 0.3 K/mm3 (0.0-0.4); Eosinophils % 3.6 % (0.1-12.0); Hematocrit 29.6 % (37.0-47.0); Lymphocytes # 0.6 K/mm3 (0.7-4.5); Lymphocytes % 7.2 % (10-50); Mean Corpuscular HGB Conc 30.5 g/dL (31.8-35.4); Mean Corpuscular Volume 88.7 fl (81-99); Monocytes # 0.4 K/mm3 (0.1-1.0); Monocytes % 4.9 % (1.7-9.3); Neutrophils # 7.2 K/mm3 (1.8-7.8); Neutrophils % 83.2 % (37.0-80.0); Platelet Count 309 K/mm3 (142-424); Red Blood Count 3.34 M/mm3 (4.20-5.40); Red Cell Distribution Width 24.6 % (11.5-17.5); White Blood Count 8.6 K/mm3 (4.8-10.8)
== END 2024-05-11 12:05 | disposition home or self-care (01) ==
LOC: INF 10:54
PROVIDERS: PCP Internal Medicine Adolescent Medicine; Visit Provider Internal Medicine Medical Oncology
DX: D64.9 Anemia, unspecified (principal)
CPT/HCPCS: 85025; 96365; J1439; J1642

== ENCOUNTER 2024-05-23 09:47 | Outpatient (CLI) | payer MEDICARE, MEDICAID, SELFPAY ==
[2024-05-23 10:08] VITALS: BMI 32.5
[2024-05-23] MEDS: SODIUM CHLORIDE 0.9% 10ML FLUSH SYRINGE 10 ML IV (10:25)
[2024-05-23 10:36] LABS: Basophils # 0.1 K/mm3 (0-0.2); Basophils % 0.8 % (0.1-2.0); Eosinophils # 0.3 K/mm3 (0.0-0.4); Eosinophils % 4.2 % (0.1-12.0); Hemoglobin 9.1 g/dL (12.2-16.2); Lymphocytes # 0.5 K/mm3 (0.7-4.5); Lymphocytes % 7.8 % (10-50); Mean Corpuscular HGB Conc 31.3 g/dL (31.8-35.4); Mean Corpuscular Hemoglobin 28.7 pg (27.0-31.2); Mean Corpuscular Volume 91.7 fl (81-99); Mean Platelet Volume 8.2 fl (7.4-10.4); Monocytes # 0.3 K/mm3 (0.1-1.0); Monocytes % 4.8 % (1.7-9.3); Neutrophils # 5.1 K/mm3 (1.8-7.8); Neutrophils % 82.3 % (37.0-80.0); Platelet Count 249 K/mm3 (142-424); Red Blood Count 3.16 M/mm3 (4.20-5.40); Red Cell Distribution Width 22.7 % (11.5-17.5); White Blood Count 6.2 K/mm3 (4.8-10.8)
[2024-05-23 10:52] LABS: PHA INR Fingerstick 3.2 (0.9-1.1)
== END 2024-05-23 10:54 ==
LOC: INF 09:48
PROVIDERS: PCP Internal Medicine Adolescent Medicine; Visit Provider Internal Medicine Medical Oncology
DX: D64.9 Anemia, unspecified (principal); Z79.01 Long term (current) use of anticoagulants
CPT/HCPCS: 36591; 85025; 85610; 99211; G0463; J1642

== ENCOUNTER 2024-06-06 08:45 | Outpatient (CLI) | payer MEDICARE, MEDICAID, SELFPAY ==
[2024-06-06] VITALS (11 sets, daily range): BP systolic 104–156; BP diastolic 43–85; PULSE 76–88; RESP 18; TEMP 36.6–37; O2SAT 96–100; BMI 32.5
[2024-06-06 09:16] LABS: Basophils # 0.1 K/mm3 (0-0.2); Basophils % 0.6 % (0.1-2.0); Eosinophils # 0.4 K/mm3 (0.0-0.4); Eosinophils % 4.6 % (0.1-12.0); Hematocrit 25.4 % (37.0-47.0); Hemoglobin 7.9 g/dL (12.2-16.2); Lymphocytes # 0.6 K/mm3 (0.7-4.5); Lymphocytes % 6.5 % (10-50); Mean Corpuscular HGB Conc 31.1 g/dL (31.8-35.4); Mean Corpuscular Hemoglobin 28.1 pg (27.0-31.2); Mean Corpuscular Volume 90.2 fl (81-99); Mean Platelet Volume 8.8 fl (7.4-10.4); Monocytes # 0.4 K/mm3 (0.1-1.0); Neutrophils % 83.3 % (37.0-80.0); Platelet Count 288 K/mm3 (142-424); Red Blood Count 2.81 M/mm3 (4.20-5.40); Red Cell Distribution Width 20.3 % (11.5-17.5); White Blood Count 8.4 K/mm3 (4.8-10.8)
[2024-06-06] MEDS: ACETAMINOPHEN 325MG TAB 650 MG PO (11:14)
[2024-06-06] MEDS: diphenhydrAMINE 25MG CAPSULE 25 MG PO (11:14)
[2024-06-06] MEDS: 0.9 % SODIUM CHLORIDE 250 ML 25 ML IV (11:15)
[2024-06-06] MEDS: SODIUM CHLORIDE 0.9% 10ML FLUSH SYRINGE 10 ML IV (13:37)
== END 2024-06-06 14:37 | disposition home or self-care (01) ==
PROVIDERS: PCP Internal Medicine Adolescent Medicine; Visit Provider Internal Medicine Medical Oncology
DX: D64.9 Anemia, unspecified (principal)
CPT/HCPCS: 36430; 85025; 86850; J1642; P9016

== ENCOUNTER 2024-06-15 13:37 | Outpatient (CLI) | payer MEDICARE, MEDICAID, SELFPAY ==
[2024-06-15 13:45] VITALS: BMI 32.2
[2024-06-15 14:07] LABS: Basophils # 0.1 K/mm3 (0-0.2); Basophils % 0.8 % (0.1-2.0); Eosinophils # 0.3 K/mm3 (0.0-0.4); Eosinophils % 3.9 % (0.1-12.0); Hematocrit 24.1 % (37.0-47.0); Hemoglobin 7.4 g/dL (12.2-16.2); Lymphocytes # 0.7 K/mm3 (0.7-4.5); Lymphocytes % 9.3 % (10-50); Mean Corpuscular HGB Conc 30.9 g/dL (31.8-35.4); Mean Corpuscular Volume 84.2 fl (81-99); Mean Platelet Volume 8.4 fl (7.4-10.4); Monocytes # 0.6 K/mm3 (0.1-1.0); Monocytes % 7.3 % (1.7-9.3); Neutrophils # 6.1 K/mm3 (1.8-7.8); Neutrophils % 78.6 % (37.0-80.0); Platelet Count 320 K/mm3 (142-424); Red Blood Count 2.86 M/mm3 (4.20-5.40); Red Cell Distribution Width 19.9 % (11.5-17.5); White Blood Count 7.7 K/mm3 (4.8-10.8)
[2024-06-15 14:25] LABS: Chloride 97 mmol/L (98-107)
[2024-06-15 14:26] LABS: Potassium 4.6 mmoL/L (3.5-5.1); Sodium 138 mmol/L (136-145)
[2024-06-15 14:28] LABS: Alanine Aminotransferase 17 U/L (12-78); Alkaline Phosphatase 111 U/L (38-126); Anion Gap 11.6 mEq/L (5-15); Aspartate Amino Transferase 22 U/L (14-36); Bilirubin,Total 0.5 mg/dl (0.2-1.3); Blood Urea Nitrogen 42 mg/dl (7-17); Carbon Dioxide 34 mmol/L (22.0-30.0); Creatinine Clearance Estimated 53 mL/min (50-200); Estimated Glomerular Filt Rate 35 ml/min (>60); GFR (African American) 43 ML/MIN (>60); Iron 33 ug/dL (37-170)
[2024-06-15 14:29] LABS: Albumin Level 4.1 g/dl (3.5-5.0); Albumin/Globulin Ratio 1.2 (1.1-1.8); Calcium 9.9 mg/dl (8.4-10.2); Globulin 3.3 g/dL (1.3-3.2); Glucose 186 mg/dl (74-100); Total Protein,Serum 7.4 g/dl (6.3-8.2)
[2024-06-15 14:38] LABS: Total Iron Binding Capacity 514 ug/dL (265-497)
[2024-06-15] MEDS: SODIUM CHLORIDE 0.9% 10ML FLUSH SYRINGE 10 ML IV (14:55)
[2024-06-15 15:04] LABS: Ferritin 18.4 ng/ml (11.1-264)
--- NOTE | 2024-06-15 15:15 | PC.NURSE ---
[id number], supply service worker here to witness nicole cui, rn collect type and screen from pt's portacath; pt to return tomorrow for 2 units prbcs
[2024-06-17 13:52] LABS: Peripheral Smear Review Scanned Result
== END 2024-06-15 15:15 | disposition home or self-care (01) ==
LOC: INF 13:38
PROVIDERS: PCP Internal Medicine Adolescent Medicine; Visit Provider Internal Medicine Medical Oncology
DX: D64.9 Anemia, unspecified (principal)
CPT/HCPCS: 36591; 80053; 82728; 83540; 83550; 85025; 86850; J1642

== ENCOUNTER 2024-06-16 08:27 | Outpatient (CLI) | payer MEDICARE, MEDICAID, SELFPAY ==
[2024-06-16] VITALS (19 sets, daily range): BP systolic 102–132; BP diastolic 41–69; PULSE 84–92; RESP 16–17; TEMP 36.2–36.6; O2SAT 97–100
[2024-06-16] MEDS: ACETAMINOPHEN 325MG TAB 650 MG (08:36)
[2024-06-16] MEDS: diphenhydrAMINE 25MG CAPSULE 25 MG PO (08:37)
[2024-06-16] MEDS: 0.9 % SODIUM CHLORIDE 250 ML 100 ML IV (08:37)
--- NOTE | 2024-06-16 09:23 | PC.NURSE ---
0919-BLOOD STARTED TRANSFUSING AT 100 ML/HR AT THIS TIME.
--- NOTE | 2024-06-16 10:45 | PC.NURSE ---
0949-INCREASED RATE TO 150 ML/HR AT THIS TIME.
--- NOTE | 2024-06-16 10:54 | PC.NURSE ---
1019-INCREASED RATE TO 200 ML/HR AT THIS TIME.
--- NOTE | 2024-06-16 11:56 | PC.NURSE ---
1152-BLOOD TRANSFUSION STARTED AT 100 ML/HR AT THIS TIME.
--- NOTE | 2024-06-16 12:36 | PC.NURSE ---
1222-INCREASED RATE TO 150 ML/HR AT THIS TIME.
--- NOTE | 2024-06-16 13:04 | PC.NURSE ---
1252-INCREASED RATE TO 200 ML/HR AT THIS TIME.
== END 2024-06-16 15:00 | disposition home or self-care (01) ==
LOC: INF 08:28
PROVIDERS: PCP Internal Medicine Adolescent Medicine; Visit Provider Internal Medicine Medical Oncology
DX: D64.9 Anemia, unspecified (principal)
CPT/HCPCS: 36430; J1642; P9016

== ENCOUNTER 2024-06-23 08:53 | Outpatient (CLI) | payer MEDICARE, MEDICAID, SELFPAY ==
[2024-06-23 09:08] VITALS: BMI 32.2
[2024-06-23 09:24] LABS: Basophils # 0.1 K/mm3 (0-0.2); Basophils % 0.8 % (0.1-2.0); Eosinophils # 0.4 K/mm3 (0.0-0.4); Eosinophils % 4.5 % (0.1-12.0); Hematocrit 26.7 % (37.0-47.0); Hemoglobin 8.2 g/dL (12.2-16.2); Lymphocytes # 0.6 K/mm3 (0.7-4.5); Lymphocytes % 8.2 % (10-50); Mean Corpuscular HGB Conc 30.6 g/dL (31.8-35.4); Mean Corpuscular Hemoglobin 25.4 pg (27.0-31.2); Mean Platelet Volume 8.6 fl (7.4-10.4); Monocytes # 0.5 K/mm3 (0.1-1.0); Monocytes % 6.4 % (1.7-9.3); Neutrophils # 6.2 K/mm3 (1.8-7.8); Neutrophils % 80.1 % (37.0-80.0); Platelet Count 303 K/mm3 (142-424); Red Blood Count 3.21 M/mm3 (4.20-5.40); Red Cell Distribution Width 19.5 % (11.5-17.5); White Blood Count 7.8 K/mm3 (4.8-10.8)
[2024-06-23 09:45] VITALS: BP 117/61; PULSE 65; RESP 18; TEMP 36.6; O2SAT 98
[2024-06-23] MEDS: IRON SUCROSE COMPLEX 200 MG in 0.9 % SODIUM CHLORIDE 100 ML 220 MG IV (09:45)
[2024-06-23 10:25] VITALS: BP 138/75; PULSE 69; RESP 20; O2SAT 97
[2024-06-23] MEDS: SODIUM CHLORIDE 0.9% 10ML FLUSH SYRINGE 10 ML IV (10:59)
[2024-06-23] MEDS: SODIUM CHLORIDE 0.9% 50ML BAG 50 ML IV (10:59)
== END 2024-06-23 10:30 | disposition home or self-care (01) ==
LOC: INF 08:54
PROVIDERS: PCP Internal Medicine Adolescent Medicine; Visit Provider Internal Medicine Medical Oncology
DX: D64.9 Anemia, unspecified (principal)
CPT/HCPCS: 85025; 96365; J1642; J1756

== ENCOUNTER 2024-06-25 15:51 | Emergency (ER) | payer MEDICARE, MEDICAID, SELFPAY ==
--- NOTE | 2024-06-25 15:54 | ED_ITS ---
Discharge Plan Disposition Patient Disposition: Home, Self-Care Condition: Good Prescriptions Prescriptions: New cefdinir 300 mg capsule 300 mg PO BID 10 Days Qty: 20 0RF No Action aspirin [Adult Low Dose Aspirin] 81 mg tablet,delayed release (DR/EC) 81 mg PO DAILY oxycodone-acetaminophen [Percocet] 10-325 mg tablet 1 tab PO QIDP PRN (Reason: Moderate Pain) alprazolam [Xanax] 0.5 mg tablet 0.5 mg PO TIDP PRN (Reason: Anxiety) potassium chloride 20 mEq tablet,ER particles/crystals 20 meq PO BID duloxetine 60 mg capsule,delayed release(DR/EC) 60 mg PO HS Patient Comments: TAKE (1) CAPSULE BY MOUTH ONCE A DAY. metolazone 2.5 mg tablet 2.5 mg PO DAILY PRN (Reason: edema) bumetanide 2 mg tablet 2 mg PO .COMPLEX Rx Instructions: 2 mg orally 1 tab in the am and 1mg in the pm; spironolactone 50 mg tablet 50 mg PO .COMPLEX Rx Instructions: 50 mg orally 1 tab in the am and 0.5 tab in the pm; metoprolol succinate 100 mg tablet extended release 24 hr 50 mg PO BID 30 Days Qty: 30 0RF levothyroxine 25 MCG tablet 25 mcg PO DAILY bisacodyl [Gentle Laxative (bisacodyl)] 5 mg Tablet,Delayed Release (Dr/Ec) 5 mg PO DIRECTED PRN (Reason: Constipation) Rx Instructions: every 3 days calcitriol 0.25 mcg Capsule 0.25 mcg PO DAILY Probiotic Colon Support 1.5 billion cell Capsule 1 cap PO DAILY warfarin 4 mg tablet 4 mg PO SUTUWETHSA Rx Instructions: 4 mg on wed, , wed, , wed warfarin 4 mg tablet 2 mg PO MOFR Patient Comments: TAKE 1 TABLET BY MOUTH ONCE A DAY. Rx Instructions: 2 mg on wednesday and wednesday insulin glargine-lixisenatide 3 ML insulin pen 50 units SQ DAILY febuxostat 40 mg tablet 40 mg PO DAILY albuterol 90 mcg/actuation Aerosol 90 mcg INHALATION Q4HP PRN (Reason: soa) dexlansoprazole [Dexilant] 30 mg capsule,biphase delayed releas 30 mg PO DAILY Patient Comments: TAKE (1) CAPSULE BY MOUTH ONCE A DAY. benzonatate 100 mg capsule 100 mg PO TIDP PRN (Reason: Cough) Qty: 30 0RF Referrals Follow up/Referrals: Reji Castro MD [Primary Care Provider] - See instructions Clinical Impressions Clinical Impression: Urinary tract infectious disease Qualifiers: Urinary tract infection type: site unspecified Hematuria presence: with hematuria Qualified Code(s): N39.0 - Urinary tract infection, site not specified Diarrhea Qualifiers: Diarrhea type: unspecified type Qualified Code(s): R19.7 - Diarrhea, unspecified Instructions Patient Instructions: DI for Urinary Tract Infection (UTI), DI for Diarrhea and Traveler's Diarrhea -- Adult Print Language Print Language: Sinhala Discharge ED Provider: Lio Davidson General Adult HPI <BEATRIS Landaverde - Last Filed: 06/25/24 18:19> General Chief complaint: Nausea/Vomiting/Diarrhea Stated complaint: weak,nausea,cramps in legs Time Seen by Provider: 06/25/24 15:54 History of Present Illness HPI narrative: Patient presents for evaluation of nausea and diarrhea. Patient has a history of hemolytic anemia and frequently requires blood transfusions and frequently get iron infusions. Her latest iron infusion was Wednesday. She normally gets injectable iron however she received an iron infusion on Wednesday. Patient states around 3:00 this morning she was awoken with nausea and had too many to count episodes of diarrheal stool. She denies any abdominal pain fever chills hemoptysis hematochezia melena hematemesis hematuria. Related Data Home Medications ?Medication ?Instructions ?Recorded ?Confirmed aspirin 81 mg tablet,delayed 81 mg PO DAILY 12/01/17 06/23/24 release (Adult Low Dose Aspirin) oxycodone-acetaminophen 10 mg-325 1 tab PO QIDP PRN Moderate Pain 05/23/18 06/23/24 mg tablet (Percocet) alprazolam 0.5 mg tablet (Xanax) 0.5 mg PO TIDP PRN Anxiety 11/29/19 06/23/24 levothyroxine 25 mcg tablet 25 mcg PO DAILY 06/05/21 06/23/24 insulin glargine 100 50 units SQ DAILY 02/22/22 06/23/24 unit-lixisenatide 33 mcg/mL subcutaneous pen febuxostat 40 mg tablet 40 mg PO DAILY 02/09/23 06/23/24 potassium chloride 20 mEq 20 meq PO BID 04/15/23 06/23/24 tablet,extended release(part/cryst) Lactobacills gasseri-Bifidobac 1 cap PO DAILY 10/30/23 06/23/24 bifidum,longum 1.5 billion cell capsule (Probiotic Colon Support) bisacodyl 5 mg tablet,delayed 5 mg PO DIRECTED PRN 10/30/23 06/23/24 release (Gentle Laxative Constipation (bisacodyl)) calcitriol 0.25 mcg capsule 0.25 mcg PO DAILY 10/30/23 06/23/24 warfarin 4 mg tablet 4 mg PO SUTUWETHSA 10/31/23 06/23/24 warfarin 4 mg tablet 2 mg PO MOFR 11/25/23 06/23/24 duloxetine 60 mg capsule,delayed 60 mg PO HS 03/06/24 06/23/24 release albuterol 90 mcg/actuation aerosol 90 mcg inhalation Q4HP PRN soa 03/28/24 06/23/24 inhaler dexlansoprazole 30 mg 30 mg PO DAILY 03/29/24 06/23/24 capsule,biphase delayed release (Dexilant) bumetanide 2 mg tablet 2 mg PO .COMPLEX 06/15/24 06/23/24 metolazone 2.5 mg tablet 2.5 mg PO DAILY PRN edema 06/15/24 06/23/24 spironolactone 50 mg tablet 50 mg PO .COMPLEX 06/15/24 06/23/24 Previous Rx's ?Medication ?Instructions ?Recorded benzonatate 100 mg capsule 100 mg PO TIDP PRN Cough #30 caps 05/02/24 metoprolol succinate 100 mg 50 mg (1/2 x 100 mg) PO BID 30 06/15/24 tablet,extended release 24 hr days #30 tabs cefdinir 300 mg capsule 300 mg PO BID 10 days #20 caps 06/25/24 Allergies Allergy/AdvReac Type Severity Reaction Status Date / Time codeine [CODEINE] Allergy Unknown nausea, Verified 06/23/24 11:00 swelling Corticosteroids Allergy Unknown Unknown Verified 06/23/24 11:00 (Glucocorticoids) allergy [CORTICOSTEROIDS reaction (GLUCOCORTICOIDS)] rosuvastatin [From CRESTOR] Allergy Unknown Unknown Verified 06/23/24 11:00 allergy reaction theophylline [From DAVID-DUR] Allergy Unknown Unknown Verified 06/23/24 11:00 allergy reaction Iodinated Contrast Media AdvReac Severe shuts Verified 06/23/24 11:00 [IODINATED CONTRAST- ORAL kidneys AND IV DYE] down and bleeding buprenorphine [From BUPRENEX] AdvReac Intermediate Nausea Verified 06/23/24 11:00 levofloxacin [From Levaquin] AdvReac Verified 06/23/24 11:00 lisinopril AdvReac Cough Verified 06/23/24 11:00 prednisone AdvReac Unknown Verified 06/23/24 11:00 allergy reaction sacubitril [From Entresto] AdvReac Hypotension Verified 06/23/24 11:00 valsartan [From Entresto] AdvReac Hypotension Verified 06/23/24 11:00 PFS <BEATRIS Landaverde - Last Filed: 06/25/24 18:19> [facility] Disclaimer: The information contained in this section may have been updated after the patient was seen, as this information can be updated by other users. Medical History (Updated 06/25/24 @ 17:55 by BEATRIS Landaverde) CHF (NYHA class III, ACC/AHA stage C) Atrial fibrillation, chronic COPD exacerbation CHF exacerbation Anemia Systolic CHF Typical angina Dyspnea Rib fracture Blood transfusion reaction Autoimmune hemolytic anemia Arthritis Hernia Sinus problem Rheumatic heart disease Hypothyroidism Polyarthralgia Pulmonary edema HLD (hyperlipidemia) HTN (hypertension) CAD (coronary artery disease) DM type 2 (diabetes mellitus, type 2) DVT (deep venous thrombosis) Cardiomyopathy Arrhythmia Liver disease Thyroid disease Valvular heart disease Hypertension Hyperlipidemia GERD (gastroesophageal reflux disease) COPD (chronic obstructive pulmonary disease) Class 1 obesity CKD (chronic kidney disease) stage 3, GFR 30-59 ml/min Acute on chronic HFrEF (heart failure with reduced ejection fraction) Coronary artery disease Congestive heart failure, NYHA class III NYHA class 3 acute on chronic systolic heart failure Diabetes mellitus Hypertensive heart disease CHF (congestive heart failure) Diastolic heart failure Tricuspid valve regurgitation halfway current use of anticoagulants with INR goal of 2.5-3.5 Surgical History Mitral valve replaced History of colon resection H/O tubal ligation History of angioplasty History of renal stent History of ureteroscopy History of tubal ligation History of hernia repair History of cardiac catheterization History of mitral valve replacement with mechanical valve Family History Other Breast cancer COPD (chronic obstructive pulmonary disease) Colon cancer Family history of acute heart failure Family history of hyperlipidemia Family history of hypertension Family history of myocardial infarction Hypertension Stroke Social History (Updated 06/23/24 @ 10:55 by Marcos Eagle RN) Smoking Status: Never smoker smoking status stop date: 01/09/2006 quit status: quit date established second hand exposure: Yes alcohol intake: never substance use type: denies use current occupational status: retired and disabled Travel in the last 8 weeks: None adopted: No caregiver/support person: No foster care: No household members: significant other housing: house lives independently: Yes marital status: life partner education level: college service: No [place] [facility] [place]: No current occupational exposures/hazards: No sexually active: Yes how many partners: 1 are you practicing safe sex: Yes diet: diabetic well-balanced diet: about half the time caffeine: No eating out: rarely or never during the past year weight has: remained stable bhavya/jainism: Buddhism special bhavya needs: No agree to transfusion: Yes helmet use: No water heater temp set < 120 deg: Yes working smoke detector in home: Yes fire extinguisher in home: Yes carbon monox detector in home: Yes firearms in home: No do you feel safe at home: Yes victim of physical abuse: No victim of emotional abuse: No victim of sexual abuse: No would you like helpful sources: No <BEATRIS Landaverde - Last Filed: 06/25/24 18:19> ROS Obtained: Yes Systems reviewed as appropriate & no additional complaints except as documented Physical Exam <BEATRIS Landaverde - Last Filed: 06/25/24 18:19> General General appearance: alert and in no apparent distress Head Head exam: atraumatic and normal inspection Eye Eye exam: Present normal appearance, PERRL and EOMI ENT ENT exam: Present normal exam, normal oropharynx and mucous membranes moist Neck Neck exam: Present normal inspection, full ROM and trachea midline; Absent lymphadenopathy Chest Chest inspection: Present normal inspection and symmetric chest wall rise Respiratory Respiratory exam: Present normal lung sounds bilaterally Cardiovascular Cardiovascular exam: Present regular rate, normal rhythm and normal heart sounds Abdominal Exam Abdominal exam: Present soft and normal bowel sounds; Absent distention, tenderness, guarding, rebound or rigidity Extremities Exam Extremities exam: Present normal inspection and full ROM Neurological Exam Neurological exam: Present alert and oriented X3 Psychiatric Psychiatric exam: Present normal affect and normal mood Skin Skin exam: Present warm, dry and normal color Lymphatic Lymphatic Findings: no adenopathy Medical Decision Making <BEATRIS Landaverde - Last Filed: 06/25/24 18:19> Medical Records Medical records reviewed: Yes I reviewed the patient's medical records. Jeancarlos Inquiry Pt receiving controlled substance: No Vital Signs: 06/25/24 16:14 06/25/24 16:24 06/25/24 16:30 Temperature 98.2 F Temperature Source Oral Pulse Rate 84 90 Pulse Rate [Left Radial] 89 Respiratory Rate 20 Blood Pressure 95/44 L 96/54 L Blood Pressure [Right Arm] 95/44 L Blood Pressure Mean [Right Arm] 61 02 Sat by Pulse Oximetry 94 L 94 L 96 Oxygen Delivery Method Nasal Cannula Room Air Room Air Oxygen Flow Rate (LPM) 3 06/25/24 16:54 06/25/24 17:00 Temperature Temperature Source Pulse Rate 77 84 Pulse Rate [Left Radial] Respiratory Rate Blood Pressure 101/52 L 111/52 L Blood Pressure [Right Arm] Blood Pressure Mean [Right Arm] 02 Sat by Pulse Oximetry 93 L 93 L Oxygen Delivery Method Room Air Room Air Oxygen Flow Rate (LPM) Lab Data Lab results reviewed: Yes I reviewed the patient's lab results. Lab Results 06/25/24 16:14: WBC 8.5, RBC 3.24 L, Hgb 8.1 L, Hct 26.1 L, MCV 80.6 L, MCH 25.1 L, MCHC 31.1 L, RDW 20.1 H, Plt Count 315, MPV 8.3, Neut % (Auto) 78.2, Lymph % (Auto) 9.1 L, [place] % (Auto) 7.1, Eos % (Auto) 5.1, Baso % (Auto) 0.5, Neut # (Auto) 6.6, Lymph # (Auto) 0.8, [place] # (Auto) 0.6, Eos # (Auto) 0.4, Baso # (Auto) 0.0, Sodium 139, Potassium 4.3, Chloride 99, Carbon Dioxide 34 H, Anion Gap 10.3, BUN 46 H, Creatinine 1.50 H, Estimated Creat Clear 52, Estimated GFR 35 L, Est GFR ( Amer) 43 L, Glucose 139 H, Lactate 1.1, Calcium 9.3, M agnesium 2.4 H, Total Bilirubin 0.6, AST 27, ALT 18, Alkaline Phosphatase 119, Total Protein 7.3, Albumin 4.4, Globulin 2.9, Albumin/Globulin Ratio 1.5 06/25/24 17:12: Urine Color Yellow, Urine Appearance Cloudy, Urine pH 6.5, Ur Specific [place] 1.010, Urine Protein Negative, Urine Glucose (UA) Negative, Urine Ketones Negative, Urine Blood Trace-i, Urine Nitrate Negative, Urine Bilirubin Negative, Urine Urobilinogen 0.2, Ur Leukocyte Esterase 3+ A, Urine RBC Occasional, Urine WBC 50-100, Ur Squamous Epith Cells 3-5, Urine Bacteria 4+ 06/25/24 16:14 06/25/24 16:14 Orders (Tests/Meds): ED MEDICATIONS Discontinued Medications Generic Name Dose Route Start Last Admin Trade Name Freq PRN Reason Stop Dose Admin Acetaminophen 1,000 mg 06/25/24 16:02 06/25/24 16:20 Acetaminophen 1,000mg/100ml Vial IV 06/25/24 16:03 1,000 mg ONCE ONE Administration Cefdinir 300 mg 06/25/24 17:57 Cefdinir 300mg Capsule PO 06/25/24 17:58 ONCE ONE Lactated Ringer's 1,000 mls @ 999 mls/hr 06/25/24 16:02 06/25/24 16:20 Lactated Ringer's 1000 Ml Bag IV 06/25/24 17:02 999 mls/hr .Q1H1M ONE Administration Ondansetron HCl 4 mg 06/25/24 16:02 06/25/24 16:20 Ondansetron 4mg/2ml Vial IV 06/25/24 16:03 4 mg ONCE ONE Administration ORDERS Category Date Time Status CBC w/Auto Diff [Complete Blood Count Auto Diff] Stat Lab 06/25/24 16:14 Completed CMP [Comprehensive Metabolic Panel] Stat Lab 06/25/24 16:14 Completed Diarrhea 23 Panel, PCR Stat Lab 06/25/24 16:02 Ordered Lactic Acid Stat Lab 06/25/24 16:14 Completed Magnesium Stat Lab 06/25/24 16:14 Completed UA [Urinalysis and Microscopic] Stat Lab 06/25/24 17:12 Completed Urine Culture Stat Micro 06/25/24 17:12 Received Medical Decision Narrative: In summary patient is a 59-year-old female who presents to the emergency department for evaluation of nausea diarrhea. Patient is hemodynamically stable upon arrival, afebrile. Physical exam is unremarkable nonfocal including no abdominal pain normal bowel sounds.. Differential diagnosis includes gastroenteritis versus medication reaction versus food borne illness. Initial workup will be conducted with hematologic labs urinalysis diarrhea panel if available. Initial interventions include crystalloid bolus Tylenol Zofran. Initial workup reviewed by me and her hematologic labs are nonactionable however patient does have evidence of urinary tract infection with 4+ bacteria. Upon repeat evaluation patient feels only slightly better but her vital signs are more stable. Given this patient is appropriate for discharge with prescription for Omnicef with first dose given here. <Lio Davidson MD - Last Filed: 06/25/24 18:22> Vital Signs: 06/25/24 16:14 06/25/24 16:24 06/25/24 16:30 Temperature 98.2 F Temperature Source Oral Pulse Rate 84 90 Pulse Rate [Left Radial] 89 Respiratory Rate 20 Blood Pressure 95/44 L 96/54 L Blood Pressure [Right Arm] 95/44 L Blood Pressure Mean [Right Arm] 61 02 Sat by Pulse Oximetry 94 L 94 L 96 Oxygen Delivery Method Nasal Cannula Room Air Room Air Oxygen Flow Rate (LPM) 3 06/25/24 16:54 06/25/24 17:00 Temperature Temperature Source Pulse Rate 77 84 Pulse Rate [Left Radial] Respiratory Rate Blood Pressure 101/52 L 111/52 L Blood Pressure [Right Arm] Blood Pressure Mean [Right Arm] 02 Sat by Pulse Oximetry 93 L 93 L Oxygen Delivery Method Room Air Room Air Oxygen Flow Rate (LPM) Lab Data Lab Results 06/25/24 16:14: WBC 8.5, RBC 3.24 L, Hgb 8.1 L, Hct 26.1 L, MCV 80.6 L, MCH 25.1 L, MCHC 31.1 L, RDW 20.1 H, Plt Count 315, MPV 8.3, Neut % (Auto) 78.2, Lymph % (Auto) 9.1 L, [place] % (Auto) 7.1, Eos % (Auto) 5.1, Baso % (Auto) 0.5, Neut # (Auto) 6.6, Lymph # (Auto) 0.8, [place] # (Auto) 0.6, Eos # (Auto) 0.4, Baso # (Auto) 0.0, Sodium 139, Potassium 4.3, Chloride 99, Carbon Dioxide 34 H, Anion Gap 10.3, BUN 46 H, Creatinine 1.50 H, Estimated Creat Clear 52, Estimated GFR 35 L, Est GFR ( Amer) 43 L, Glucose 139 H, Lactate 1.1, Calcium 9.3, M agnesium 2.4 H, Total Bilirubin 0.6, AST 27, ALT 18, Alkaline Phosphatase 119, Total Protein 7.3, Albumin 4.4, Globulin 2.9, Albumin/Globulin Ratio 1.5 06/25/24 17:12: Urine Color Yellow, Urine Appearance Cloudy, Urine pH 6.5, Ur Specific [place] 1.010, Urine Protein Negative, Urine Glucose (UA) Negative, Urine Ketones Negative, Urine Blood Trace-i, Urine Nitrate Negative, Urine Bilirubin Negative, Urine Urobilinogen 0.2, Ur Leukocyte Esterase 3+ A, Urine RBC Occasional, Urine WBC 50-100, Ur Squamous Epith Cells 3-5, Urine Bacteria 4+ Orders (Tests/Meds): ED MEDICATIONS Discontinued Medications Generic Name Dose Route Start Last Admin Trade Name Mónica PRN Reason Stop Dose Admin Acetaminophen 1,000 mg 06/25/24 16:02 06/25/24 16:20 Acetaminophen 1,000mg/100ml Vial IV 06/25/24 16:03 1,000 mg ONCE ONE Administration Cefdinir 300 mg 06/25/24 17:57 Cefdinir 300mg Capsule PO 06/25/24 17:58 ONCE ONE Lactated Ringer's 1,000 mls @ 999 mls/hr 06/25/24 16:02 06/25/24 16:20 Lactated Ringer's 1000 Ml Bag IV 06/25/24 17:02 999 mls/hr .Q1H1M ONE Administration Ondansetron HCl 4 mg 06/25/24 16:02 06/25/24 16:20 Ondansetron 4mg/2ml Vial IV 06/25/24 16:03 4 mg ONCE ONE Administration ORDERS Category Date Time Status CBC w/Auto Diff [Complete Blood Count Auto Diff] Stat Lab 06/25/24 16:14 Completed CMP [Comprehensive Metabolic Panel] Stat Lab 06/25/24 16:14 Completed Diarrhea 23 Panel, PCR Stat Lab 06/25/24 16:02 Ordered Lactic Acid Stat Lab 06/25/24 16:14 Completed Magnesium Stat Lab 06/25/24 16:14 Completed UA [Urinalysis and Microscopic] Stat Lab 06/25/24 17:12 Completed Urine Culture Stat Micro 06/25/24 17:12 Received Medical Decision Narrative: In summary patient is a 59-year-old female who presents to the emergency department for evaluation of nausea diarrhea. Patient is hemodynamically stable upon arrival, afebrile. Physical exam is unremarkable nonfocal including no abdominal pain normal bowel sounds.. Differential diagnosis includes gastroenteritis versus medication reaction versus food borne illness. Initial workup will be conducted with hematologic labs urinalysis diarrhea panel if available. Initial interventions include crystalloid bolus Tylenol Zofran. Initial workup reviewed by me and her hematologic labs are nonactionable however patient does have evidence of urinary tract infection with 4+ bacteria. Upon repeat evaluation patient feels only slightly better but her vital signs are more stable. Given this patient is appropriate for discharge with prescription for Omnicef with first dose given here. I was consulted by the EZEQUIEL, and we discussed the complexity of the problems being addressed. I approved the treatment and management plan for this patient's care in the emergency department, thus performing a substantive portion of the medical decision making. Lio Davidson MD Critical Care <BEATRIS Landaverde - Last Filed: 06/25/24 18:19> Critical Care Time Critical Care Time: No
[2024-06-25 16:14] VITALS: BP 95/44; PULSE 84; O2SAT 94
[2024-06-25] MEDS: ONDANSETRON 4MG/2ML VIAL 4 MG IV (16:20)
[2024-06-25] MEDS: ACETAMINOPHEN 1,000MG/100ML VIAL 1000 MG IV (16:20)
[2024-06-25] MEDS: LACTATED RINGERS 1000ML 1,000 ML 999 ML IV (16:20)
[2024-06-25 16:24] VITALS: BP 95/44; PULSE 89; RESP 20; TEMP 36.8; O2SAT 94; BMI 31.7
[2024-06-25 16:30] VITALS: BP 96/54; PULSE 90; O2SAT 96
[2024-06-25 16:41] LABS: Albumin Level 4.4 g/dl (3.5-5.0); Chloride 99 mmol/L (98-107); Potassium 4.3 mmoL/L (3.5-5.1); Sodium 139 mmol/L (136-145)
[2024-06-25 16:43] LABS: Lactic Acid 1.1 mmol/L (0.7-2.1)
[2024-06-25 16:44] LABS: Alanine Aminotransferase 18 U/L (12-78); Albumin/Globulin Ratio 1.5 (1.1-1.8); Alkaline Phosphatase 119 U/L (38-126); Anion Gap 10.3 mEq/L (5-15); Aspartate Amino Transferase 27 U/L (14-36); Basophils % 0.5 % (0.1-2.0); Bilirubin,Total 0.6 mg/dl (0.2-1.3); Blood Urea Nitrogen 46 mg/dl (7-17); Calcium 9.3 mg/dl (8.4-10.2); Carbon Dioxide 34 mmol/L (22.0-30.0); Creatinine Clearance Estimated 52 mL/min (50-200); Eosinophils # 0.4 K/mm3 (0.0-0.4); Eosinophils % 5.1 % (0.1-12.0); Estimated Glomerular Filt Rate 35 ml/min (>60); GFR (African American) 43 ML/MIN (>60); Globulin 2.9 g/dL (1.3-3.2); Glucose 139 mg/dl (74-100); Hematocrit 26.1 % (37.0-47.0); Hemoglobin 8.1 g/dL (12.2-16.2); Lymphocytes # 0.8 K/mm3 (0.7-4.5); Lymphocytes % 9.1 % (10-50); Magnesium 2.4 mg/dl (1.6-2.3); Mean Corpuscular HGB Conc 31.1 g/dL (31.8-35.4); Mean Corpuscular Hemoglobin 25.1 pg (27.0-31.2); Mean Corpuscular Volume 80.6 fl (81-99); Mean Platelet Volume 8.3 fl (7.4-10.4); Monocytes # 0.6 K/mm3 (0.1-1.0); Monocytes % 7.1 % (1.7-9.3); Neutrophils # 6.6 K/mm3 (1.8-7.8); Neutrophils % 78.2 % (37.0-80.0); Platelet Count 315 K/mm3 (142-424); Red Blood Count 3.24 M/mm3 (4.20-5.40); Red Cell Distribution Width 20.1 % (11.5-17.5); Total Protein,Serum 7.3 g/dl (6.3-8.2); White Blood Count 8.5 K/mm3 (4.8-10.8)
[2024-06-25 16:54] VITALS: BP 101/52; PULSE 77; O2SAT 93
[2024-06-25 17:00] VITALS: BP 111/52; PULSE 84; O2SAT 93
[2024-06-25 17:22] LABS: Microscopic, Urine URINE MICROSCOPIC (MICROSCOPIC)
[2024-06-25 17:32] LABS: Bilirubin,Urine Negative (Negative); Blood, Urine TRACE-I (Negative); Color,Urine YELLOW (Yellow); Glucose,Urine (UA) Negative (Negative); Ketones,Urine Negative (Negative); Leukocyte Esterase,Urine 3+ (Negative); Nitrate,Urine Negative (Negative); PH,Urine 6.5 (5.0-8.5); Protein,Urine Negative (Negative); Urobilinogen,Urine 0.2 EU/dl (0.2)
[2024-06-25 17:34] LABS: Appearance,Urine Cloudy (Clear)
[2024-06-25 17:48] LABS: WBC,Urine 50-100 #/hpf (0-3)
[2024-06-25 17:49] LABS: Bacteria,Urine 4+ /lpf; RBC,Urine Occasional #/hpf (0-3)
[2024-06-25 18:28] VITALS: BP 115/61; PULSE 82; RESP 20; TEMP 36.8; O2SAT 94
[2024-06-25] MEDS: CEFDINIR 300MG CAPSULE 300 MG PO (18:28)
--- NOTE | 2024-06-27 08:40 | PC.NURSE ---
lab called with urine culture results, e.coli in urine and ESBL positive. asked lab to fax result report down to be handled.
--- NOTE | 2024-06-27 18:54 | PC.NURSE ---
URINE CULTURE DISCUSSED WITH DR CHENEY, CALLED AND CHECKED ON PT. REPORTS CONTINUED BACK PAIN, WEAKNESS AND FEVER. INSTRUCTED TO RETURN TO ED FOR TREATMENT.. PT WILL BE IN AFTER EATING SUPPER.
== END 2024-06-25 18:32 | disposition home or self-care (01) ==
PROVIDERS: Physician Assistant; Emergency Provider Emergency Medicine; PCP Internal Medicine Adolescent Medicine
DX: N39.0 Urinary tract infection, site not specified (principal); B96.29 Other Escherichia coli [E. coli] as the cause of diseases classified elsewhere; Z16.12 Extended spectrum beta lactamase (ESBL) resistance; R19.7 Diarrhea, unspecified; R11.0 Nausea; N18.30 Chronic kidney disease, stage 3 unspecified; E11.22 Type 2 diabetes mellitus with diabetic chronic kidney disease; I12.9 Hypertensive chronic kidney disease with stage 1 through stage 4 chronic kidney disease, or unspecified chronic kidney disease; I11.0 Hypertensive heart disease with heart failure; I50.40 Unspecified combined systolic (congestive) and diastolic (congestive) heart failure; I25.119 Atherosclerotic heart disease of native coronary artery with unspecified angina pectoris; K21.9 Gastro-esophageal reflux disease without esophagitis; E78.5 Hyperlipidemia, unspecified; I48.20 Chronic atrial fibrillation, unspecified; J44.9 Chronic obstructive pulmonary disease, unspecified; E03.9 Hypothyroidism, unspecified; Z79.4 Long term (current) use of insulin; Z79.01 Long term (current) use of anticoagulants; D59.30 Hemolytic-uremic syndrome, unspecified; D50.9 Iron deficiency anemia, unspecified; Z87.891 Personal history of nicotine dependence
CPT/HCPCS: 80053; 81001; 83605; 83735; 85025; 87086; 87088; 87186; 96361; 96374; 96375; 99284; J0131; J1642; J2405; J7120

== ENCOUNTER 2024-06-27 19:57 | Observation (INO) | payer MEDICARE, MEDICAID, SELFPAY ==
[2024-06-27 19:58] VITALS: BP 110/64; PULSE 89; RESP 16; TEMP 37; O2SAT 97; BMI 31.7
--- NOTE | 2024-06-27 20:07 | ED_ITS ---
<Statement entered by Lio Davidson MD - 06/27/24 23:19> I was consulted by the EZEQUIEL, and we discussed the complexity of the problems being addressed. I approved the treatment and management plan for this patient's care in the emergency department, thus performing a substantive portion of the medical decision making. Lio Davidson MD patient has ESBL urinary tract infection and still feels poorly. I remember this patient well I discharged her on cefdinir, I reviewed her culture results today and the only oral antibiotic that it would be sensitive to would be nitrofurantoin. Given her significant comorbidities and the fact that Macrobid only concentrates in the bladder although she does not have proteinuria on her urinalysis if there were to be any ascending component to this urinary tract infection this would be an appropriate antibiotic coverage. Given this patient was covered with IV antibiotics with Zosyn which are sensitive based on culture data. Hematologic labs obtained today show acute hyponatremia which will need to be trended. Hyperglycemia without significant elevation in anion gap, persistent overt urinary tract infection. Patient was admitted in stable condition. Discharge Plan Disposition Patient Disposition: Admitted Condition: Fair Clinical Impressions Clinical Impression: Infection due to ESBL-producing Escherichia coli, Urinary tract infection Discharge ED Provider: Lio Davidson General Adult HPI General Chief complaint: Urogenital-Female Stated complaint: critical labs Time Seen by Provider: 06/27/24 20:01 History of Present Illness HPI narrative: Patient presents for evaluation of a multidrug-resistant E. coli infection. I saw the patient on Wednesday with nausea vomiting and diarrhea and ultimately diagnosed her with a urinary tract infection. I started her on Omnicef and discharged her home. Her culture panel resulted today that showed a multidrug- resistant ESBL producing E. coli infection. Patient was contacted to return to the urgency department for evaluation. On arrival patient reports that she feels not much better than when she was here on Wednesday but no new complaints occluding chest pain fever chills mops this much easier melena nausea vomiting diarrhea. Related Data Home Medications ?Medication ?Instructions ?Recorded ?Confirmed aspirin 81 mg tablet,delayed 81 mg PO DAILY 12/01/17 06/23/24 release (Adult Low Dose Aspirin) oxycodone-acetaminophen 10 mg-325 1 tab PO QIDP PRN Moderate Pain 05/23/18 06/23/24 mg tablet (Percocet) alprazolam 0.5 mg tablet (Xanax) 0.5 mg PO TIDP PRN Anxiety 11/29/19 06/23/24 levothyroxine 25 mcg tablet 25 mcg PO DAILY 06/05/21 06/23/24 insulin glargine 100 50 units SQ DAILY 02/22/22 06/23/24 unit-lixisenatide 33 mcg/mL subcutaneous pen febuxostat 40 mg tablet 40 mg PO DAILY 02/09/23 06/23/24 potassium chloride 20 mEq 20 meq PO BID 04/15/23 06/23/24 tablet,extended release(part/cryst) Lactobacills gasseri-Bifidobac 1 cap PO DAILY 10/30/23 06/23/24 bifidum,longum 1.5 billion cell capsule (Probiotic Colon Support) bisacodyl 5 mg tablet,delayed 5 mg PO DIRECTED PRN 10/30/23 06/23/24 release (Gentle Laxative Constipation (bisacodyl)) calcitriol 0.25 mcg capsule 0.25 mcg PO DAILY 10/30/23 06/23/24 warfarin 4 mg tablet 4 mg PO SUTUWETHSA 10/31/23 06/23/24 warfarin 4 mg tablet 2 mg PO MOFR 11/25/23 06/23/24 duloxetine 60 mg capsule,delayed 60 mg PO HS 03/06/24 06/23/24 release albuterol 90 mcg/actuation aerosol 90 mcg inhalation Q4HP PRN soa 03/28/24 06/23/24 inhaler dexlansoprazole 30 mg 30 mg PO DAILY 03/29/24 06/23/24 capsule,biphase delayed release (Dexilant) bumetanide 2 mg tablet 2 mg PO .COMPLEX 06/15/24 06/23/24 metolazone 2.5 mg tablet 2.5 mg PO DAILY PRN edema 06/15/24 06/23/24 spironolactone 50 mg tablet 50 mg PO .COMPLEX 06/15/24 06/23/24 Previous Rx's ?Medication ?Instructions ?Recorded benzonatate 100 mg capsule 100 mg PO TIDP PRN Cough #30 caps 05/02/24 metoprolol succinate 100 mg 50 mg (1/2 x 100 mg) PO BID 30 06/15/24 tablet,extended release 24 hr days #30 tabs cefdinir 300 mg capsule 300 mg PO BID 10 days #20 caps 06/25/24 Allergies Allergy/AdvReac Type Severity Reaction Status Date / Time codeine [CODEINE] Allergy Unknown nausea, Verified 06/23/24 11:00 swelling Corticosteroids Allergy Unknown Unknown Verified 06/23/24 11:00 (Glucocorticoids) allergy [CORTICOSTEROIDS reaction (GLUCOCORTICOIDS)] rosuvastatin [From CRESTOR] Allergy Unknown Unknown Verified 06/23/24 11:00 allergy reaction theophylline [From DAVID-DUR] Allergy Unknown Unknown Verified 06/23/24 11:00 allergy reaction Iodinated Contrast Media AdvReac Severe shuts Verified 06/23/24 11:00 [IODINATED CONTRAST- ORAL kidneys AND IV DYE] down and bleeding buprenorphine [From BUPRENEX] AdvReac Intermediate Nausea Verified 06/23/24 11:00 levofloxacin [From Levaquin] AdvReac Verified 06/23/24 11:00 lisinopril AdvReac Cough Verified 06/23/24 11:00 prednisone AdvReac Unknown Verified 06/23/24 11:00 allergy reaction sacubitril [From Entresto] AdvReac Hypotension Verified 06/23/24 11:00 valsartan [From Entresto] AdvReac Hypotension Verified 06/23/24 11:00 PFSH PFSH Disclaimer: The information contained in this section may have been updated after the patient was seen, as this information can be updated by other users. Medical History CHF (NYHA class III, ACC/AHA stage C) Atrial fibrillation, chronic COPD exacerbation CHF exacerbation Anemia Systolic CHF Typical angina Dyspnea Rib fracture Blood transfusion reaction Autoimmune hemolytic anemia Arthritis Hernia Sinus problem Rheumatic heart disease Hypothyroidism Polyarthralgia Pulmonary edema HLD (hyperlipidemia) HTN (hypertension) CAD (coronary artery disease) DM type 2 (diabetes mellitus, type 2) DVT (deep venous thrombosis) Cardiomyopathy Arrhythmia Liver disease Thyroid disease Valvular heart disease Hypertension Hyperlipidemia GERD (gastroesophageal reflux disease) COPD (chronic obstructive pulmonary disease) Class 1 obesity CKD (chronic kidney disease) stage 3, GFR 30-59 ml/min Acute on chronic HFrEF (heart failure with reduced ejection fraction) Coronary artery disease Congestive heart failure, NYHA class III NYHA class 3 acute on chronic systolic heart failure Diabetes mellitus Hypertensive heart disease CHF (congestive heart failure) Diastolic heart failure Tricuspid valve regurgitation USP current use of anticoagulants with INR goal of 2.5-3.5 Surgical History Mitral valve replaced History of colon resection H/O tubal ligation History of angioplasty History of renal stent History of ureteroscopy History of tubal ligation History of hernia repair History of cardiac catheterization History of mitral valve replacement with mechanical valve Family History Other Breast cancer COPD (chronic obstructive pulmonary disease) Colon cancer Family history of acute heart failure Family history of hyperlipidemia Family history of hypertension Family history of myocardial infarction Hypertension Stroke Social History Smoking Status: Former smoker tobacco type: cigarettes packs per day: 1 smoking status stop date: 01/09/2006 quit status: quit date established second hand exposure: Yes alcohol intake: never substance use type: denies use current occupational status: retired and disabled Travel in the last 8 weeks: None adopted: No caregiver/support person: No foster care: No household members: significant other housing: house lives independently: Yes marital status: life partner education level: college service: No usp: No current occupational exposures/hazards: No sexually active: Yes how many partners: 1 are you practicing safe sex: Yes diet: diabetic well-balanced diet: about half the time caffeine: No eating out: rarely or never during the past year weight has: remained stable bhavya/yazdanism: Judaism special bhavya needs: No agree to transfusion: Yes helmet use: No water heater temp set < 120 deg: Yes working smoke detector in home: Yes fire extinguisher in home: Yes carbon monox detector in home: Yes firearms in home: No do you feel safe at home: Yes victim of physical abuse: No victim of emotional abuse: No victim of sexual abuse: No would you like helpful sources: No ROS Obtained: Yes Systems reviewed as appropriate & no additional complaints except as documented Physical Exam General General appearance: alert and in no apparent distress Respiratory Respiratory exam: Present normal lung sounds bilaterally Cardiovascular Cardiovascular exam: Present regular rate and normal rhythm Abdominal Exam Abdominal exam: Present soft; Absent tenderness Neurological Exam Neurological exam: Present alert and oriented X3 Medical Decision Making Medical Records Medical records reviewed: Yes I reviewed the patient's medical records. Jeancarlos Inquiry Pt receiving controlled substance: No Vital Signs: 06/27/24 19:58 06/27/24 20:16 06/27/24 21:25 Temperature 98.6 F 98.6 F Temperature Source Oral Oral Pulse Rate 86 79 Pulse Rate [Left] 89 Respiratory Rate 16 16 Blood Pressure 110/64 128/57 L Blood Pressure [Right Arm] 110/64 Blood Pressure Mean [Right Arm] 79 Blood Pressure Source [Right Arm] Automatic Cuff Blood Pressure Position Supine Blood Pressure Position [Right Arm] Supine 02 Sat by Pulse Oximetry 97 95 Oxygen Delivery Method Room Air Room Air Lab Data Lab results reviewed: Yes I reviewed the patient's lab results. Lab Results 06/27/24 20:15: Urine Color Yellow, Urine Appearance Clear, Urine pH 6.0, Ur Specific [place] 1.015, Urine Protein Negative, Urine Glucose (UA) Trace, Urine Ketones Negative, Urine Blood Negative, Urine Nitrate Positive, Urine Bilirubin Negative, Urine Urobilinogen 0.2, Ur Leukocyte Esterase 1+ A, Urine RBC Occasional, Urine WBC 50-100, Ur Squamous Epith Cells 5-10, Urine Bacteria 4+ 06/27/24 20:30: WBC 8.6, RBC 2.92 L, Hgb 7.5 L, Hct 24.3 L, MCV 83.3, MCH 25.7 L , MCHC 30.8 L, RDW 20.9 H, Plt Count 294, MPV 9.3, Neut % (Auto) 81.9 H, Lymph % (Auto) 7.0 L, Dolores % (Auto) 5.9, Eos % (Auto) 4.8, Baso % (Auto) 0.5, Neut # (Auto) 7.1, Lymph # (Auto) 0.6 L, Dolores # (Auto) 0.5, Eos # (Auto) 0.4, Baso # (Auto) 0.0, Sodium 131 L, Potassium 4.6, Chloride 94 L, Carbon Dioxide 28, Anion Gap 13.6, BUN 46 H, Creatinine 1.70 H, Estimated Creat Clear 46, Estimated GFR 31 L, Est GFR ( Amer) 37 L, Glucose 372 H, Calcium 9.0, Total Bilirubin 0.7, AST 29, ALT 22, Alkaline Phosphatase 99, Total Protein 6.8, Albumin 4.0, Globulin 2.8, Albumin/Globulin Ratio 1.4, Blood Type O Positive, Antibody Screen Negative 06/27/24 20:30 06/27/24 20:30 Orders (Tests/Meds): ED MEDICATIONS Generic Name Dose Route Start Last Admin Trade Name Moeq PRN Reason Stop Dose Admin Acetaminophen 650 mg 06/27/24 21:25 Acetaminophen 325mg Tab PO 07/27/24 21:24 Q4HP PRN Fever or Mild Pain (1-3) Pantoprazole Sodium 40 mg 06/28/24 09:00 Pantoprazole 40mg Tablet PO 07/28/24 08:59 DAILY JOEY Sodium Chloride 10 ml 06/27/24 21:25 Sodium Chloride 0.9% 10ml Flush Syringe IV 07/27/24 21:24 NEEDED PRN Maintain IV Site Discontinued Medications Generic Name Dose Route Start Last Admin Trade Name Moeq PRN Reason Stop Dose Admin Acetaminophen 1,000 mg 06/27/24 20:08 06/27/24 20:44 Acetaminophen 1,000mg/100ml Vial IV 06/27/24 20:09 1,000 mg ONCE ONE Administration Lactated Ringer's 1,000 mls @ 999 mls/hr 06/27/24 20:08 06/27/24 20:43 Lactated Ringer's 1000 Ml Bag IV 06/27/24 21:08 999 mls/hr .Q1H1M ONE Administration Piperacillin Sod/Tazobactam 50 mls @ 100 mls/hr 06/27/24 20:09 06/27/24 20:56 Sod 3.375 gm/ Sodium Chloride IV 06/27/24 20:38 Not Given ONCE ONE Piperacillin Sod/Tazobactam 50 mls @ 100 mls/hr 06/27/24 21:00 06/27/24 20:56 Sod 3.375 gm/ Sodium Chloride IV 06/27/24 21:29 100 mls/hr ONCE ONE Administration Ketorolac Tromethamine 15 mg 06/27/24 20:08 06/27/24 20:47 Ketorolac 30mg/Ml Vial IV 06/27/24 20:09 Not Given ONCE ONE Ondansetron HCl 4 mg 06/27/24 20:08 06/27/24 20:44 Ondansetron 4mg/2ml Vial IV 06/27/24 20:09 4 mg ONCE ONE Administration ORDERS Category Date Time Status Type and Screen Stat BBK 06/27/24 20:30 Completed CBC w/Auto Diff [Complete Blood Count Auto Diff] Stat Lab 06/27/24 20:30 Completed CMP [Comprehensive Metabolic Panel] Stat Lab 06/27/24 20:30 Completed UA [Urinalysis and Microscopic] Stat Lab 06/27/24 20:15 Completed Urine Culture Stat Micro 06/27/24 20:15 Received Medical Decision Narrative: In summary patient is a 59-year-old female who presents to the emergency department for evaluation of ESBL E. coli UTI. Patient is hemodynamically stable upon arrival, afebrile. Exam is unremarkable and nonfocal including no chest pain no abdominal pain normal breath sounds.. Differential diagnosis includes definitely ESBL E. coli UTI but also possibly worsening sepsis pyelonephritis etc. Initial workup will be conducted with hematologic labs urinalysis. Initial interventions include crystalloid bolus blood cultures starting the patient on Zosyn. Initial workup reviewed by me and her hematologic labs are reassuringly nonactionable but her urinalysis still shows 4+ bacteria. Upon repeat evaluation patient is agreeable to admission. Given this I had interact discussion with hospital medicine about patient management who will admit for further evaluation and care. Critical Care Critical Care Time Critical Care Time: No
[2024-06-27 20:16] VITALS: BP 110/64; PULSE 86; O2SAT 95
[2024-06-27 20:17] LABS: Microscopic, Urine URINE MICROSCOPIC (MICROSCOPIC)
[2024-06-27 20:32] LABS: Appearance,Urine CLEAR (Clear); Bilirubin,Urine Negative (Negative); Blood, Urine Negative (Negative); Color,Urine YELLOW (Yellow); Glucose,Urine (UA) TRACE (Negative); Ketones,Urine Negative (Negative); Leukocyte Esterase,Urine 1+ (Negative); Nitrate,Urine POSITIVE (Negative); Protein,Urine Negative (Negative); Specific Gravity, Urine 1.015 (1.005-1.030); Urobilinogen,Urine 0.2 EU/dl (0.2)
[2024-06-27] MEDS: LACTATED RINGERS 1000ML 1,000 ML 999 ML IV (20:43)
[2024-06-27] MEDS: ACETAMINOPHEN 1,000MG/100ML VIAL 1000 MG IV (20:44)
[2024-06-27] MEDS: ONDANSETRON 4MG/2ML VIAL 4 MG IV (20:44)
[2024-06-27 20:47] LABS: RBC,Urine Occasional #/hpf (0-3); WBC,Urine 50-100 #/hpf (0-3)
[2024-06-27 20:48] LABS: Bacteria,Urine 4+ /lpf
[2024-06-27 20:49] LABS: Basophils % 0.5 % (0.1-2.0); Eosinophils # 0.4 K/mm3 (0.0-0.4); Eosinophils % 4.8 % (0.1-12.0); Hematocrit 24.3 % (37.0-47.0); Hemoglobin 7.5 g/dL (12.2-16.2); Lymphocytes # 0.6 K/mm3 (0.7-4.5); Mean Corpuscular HGB Conc 30.8 g/dL (31.8-35.4); Mean Corpuscular Hemoglobin 25.7 pg (27.0-31.2); Mean Corpuscular Volume 83.3 fl (81-99); Mean Platelet Volume 9.3 fl (7.4-10.4); Monocytes # 0.5 K/mm3 (0.1-1.0); Monocytes % 5.9 % (1.7-9.3); Neutrophils # 7.1 K/mm3 (1.8-7.8); Neutrophils % 81.9 % (37.0-80.0); Platelet Count 294 K/mm3 (142-424); Red Blood Count 2.92 M/mm3 (4.20-5.40); Red Cell Distribution Width 20.9 % (11.5-17.5); White Blood Count 8.6 K/mm3 (4.8-10.8)
[2024-06-27] MEDS: PIPERACILLIN/TAZO 3.375 GM in 0.9 % SODIUM CHLORIDE 50 ML IV (20:56)
[2024-06-27 21:01] LABS: Alanine Aminotransferase 22 U/L (12-78); Albumin/Globulin Ratio 1.4 (1.1-1.8); Alkaline Phosphatase 99 U/L (38-126); Anion Gap 13.6 mEq/L (5-15); Aspartate Amino Transferase 29 U/L (14-36); Bilirubin,Total 0.7 mg/dl (0.2-1.3); Blood Urea Nitrogen 46 mg/dl (7-17); Carbon Dioxide 28 mmol/L (22.0-30.0); Chloride 94 mmol/L (98-107); Creatinine Clearance Estimated 46 mL/min (50-200); Estimated Glomerular Filt Rate 31 ml/min (>60); GFR (African American) 37 ML/MIN (>60); Globulin 2.8 g/dL (1.3-3.2); Glucose 372 mg/dl (74-100); Potassium 4.6 mmoL/L (3.5-5.1); Sodium 131 mmol/L (136-145); Total Protein,Serum 6.8 g/dl (6.3-8.2)
--- NOTE | 2024-06-27 21:22 | PC.NURSE ---
attempted to call report no answer
[2024-06-27 21:25] VITALS: BP 128/57; PULSE 79; RESP 16; TEMP 37; O2SAT 98
--- NOTE | 2024-06-27 21:28 | PC.NURSE ---
report called to [phone]
--- NOTE | 2024-06-27 21:28 | PC.NURSE ---
Received report from Yeison Gunter RN
--- NOTE | 2024-06-27 21:36 | PC.NURSE ---
Patient arrived to floor via wheelchair from ED at 21:35.
--- NOTE | 2024-06-27 21:49 | EXP.HP ---
History of Present Illness *Admission Date: 06/27/24 *Reason for visit:: Drug-resistant urinary tract infection *History of present illness: This patient who has multiple medical problems including having to receive blood transfusions. She was seen in the ER on 06/25/2024, for nausea vomiting diarrhea related to possibly eating out.. Patient was found to have urinary tract infection +3 leukocytes and started on Omnicef, patient was send called when urinalysis came back with a significant drug-resistant urinary tract infection. She is coming to the emergency room and been started on IV antibiotic that covers the infection. Will need to admit the patient as I do agree with the ER physician. The patient needs IV antibiotics for the UTI plus with her cardiac history can go into congestive heart failure quite easily., Also noting for pulmonary hypertension. Dr. Roger is her talent acquisition project manager and Dr. Sawyer is her head cook [facility] Disclaimer: The information contained in this section may have been updated after the patient was seen, as this information can be updated by other users. Medical History CHF (NYHA class III, ACC/AHA stage C) Atrial fibrillation, chronic COPD exacerbation CHF exacerbation Anemia Systolic CHF Typical angina Dyspnea Rib fracture Blood transfusion reaction Autoimmune hemolytic anemia Arthritis Hernia Sinus problem Rheumatic heart disease Hypothyroidism Polyarthralgia Pulmonary edema HLD (hyperlipidemia) HTN (hypertension) CAD (coronary artery disease) DM type 2 (diabetes mellitus, type 2) DVT (deep venous thrombosis) Cardiomyopathy Arrhythmia Liver disease Thyroid disease Valvular heart disease Hypertension Hyperlipidemia GERD (gastroesophageal reflux disease) COPD (chronic obstructive pulmonary disease) Class 1 obesity CKD (chronic kidney disease) stage 3, GFR 30-59 ml/min Acute on chronic HFrEF (heart failure with reduced ejection fraction) Coronary artery disease Congestive heart failure, NYHA class III NYHA class 3 acute on chronic systolic heart failure Diabetes mellitus Hypertensive heart disease CHF (congestive heart failure) Diastolic heart failure Tricuspid valve regurgitation jail current use of anticoagulants with INR goal of 2.5-3.5 Surgical History Mitral valve replaced History of colon resection H/O tubal ligation History of angioplasty History of renal stent History of ureteroscopy History of tubal ligation History of hernia repair History of cardiac catheterization History of mitral valve replacement with mechanical valve Family History Other Breast cancer COPD (chronic obstructive pulmonary disease) Colon cancer Family history of acute heart failure Family history of hyperlipidemia Family history of hypertension Family history of myocardial infarction Hypertension Stroke Social History (Updated 06/27/24 @ 22:12 by Crystal Guillen RN) Smoking Status: Former smoker tobacco type: cigarettes packs per day: 1 smoking status stop date: 01/09/2006 quit status: quit date established second hand exposure: Yes alcohol intake: never substance use type: denies use current occupational status: retired and disabled Travel in the last 8 weeks: None adopted: No caregiver/support person: No foster care: No household members: significant other housing: house lives independently: Yes marital status: life partner education level: college service: No senior care: No current occupational exposures/hazards: No sexually active: Yes how many partners: 1 are you practicing safe sex: Yes diet: diabetic well-balanced diet: about half the time caffeine: No eating out: rarely or never during the past year weight has: remained stable bhavya/buddhism: [employer] special bhavya needs: No agree to transfusion: Yes helmet use: No water heater temp set < 120 deg: Yes working smoke detector in home: Yes fire extinguisher in home: Yes carbon monox detector in home: Yes firearms in home: No do you feel safe at home: Yes victim of physical abuse: No victim of emotional abuse: No victim of sexual abuse: No would you like helpful sources: No Review of Systems Review of Systems Review of systems:: pertinent systems reviewed and negative unless documented below Review of systems (narrative): Patient is a very good historian Constitutional Constitutional: Reports system reviewed and no additional complaints, except as documented and Reports as per HPI Comments: Patient does have chronic pain and is on opioid medications Eyes Eyes: Reports system reviewed and no additional complaints, except as documented Comments: Denies any vision problems ENT Ears, Nose, Mouth, and Throat: Reports system reviewed and no additional complaints, except as documented *Cardiovascular Cardiovascular: Reports system reviewed and no additional complaints, except as documented Comments: Patient denies any cardiac symptoms at this point in time but she notes she goes into congestive heart failure very easily and has mechanical valve, also she says that at of this month is supposed to have a pacer/defibrillator implanted *Respiratory Respiratory: Reports system reviewed and no additional complaints, except as documented Comments: Patient denies any respiratory distress at this point in time *Gastrointestinal Gastrointestinal: Reports system reviewed and no additional complaints, except as documented and Reports abdominal pain (Mild generalized abdominal pain on soft palpation, rounded abdomen) *Genitourinary Genitourinary: Reports system reviewed and no additional complaints, except as documented Comments: Patient denies any urinary tract symptoms *Musculoskeletal Musculoskeletal: Reports system reviewed and no additional complaints, except as documented, Reports arthralgias, Reports back pain and Reports myalgias Comments: Patient has chronic pain related to past medical history Integumentary/Breasts Skin/Breast: Reports system reviewed and no additional complaints, except as documented *Neurologic Neurologic: Reports system reviewed and no additional complaints, except as documented Comments: No neurologic deficits at her expressed Psychiatric Psychiatric: Reports system reviewed and no additional complaints, except as documented Comments: Patient denied any severe psychological issues Endocrine Endocrine: Reports system reviewed and no additional complaints, except as documented Hematologic/Lymphatic Hematologic/Lymphatic: Reports as per HPI Comments: Patient received 3 blood transfusions in May related to her autoimmune condition and has a talent acquisition project manager Dr. Roger Allergic/Immunologic Allergic/Immunologic: Reports as per HPI Meds Home Medications and Allergies Home Medications ?Medication ?Instructions ?Recorded ?Confirmed ?Type aspirin 81 mg tablet,delayed 81 mg PO DAILY 12/01/17 06/27/24 History release (Adult Low Dose Aspirin) oxycodone-acetaminophen 10 mg-325 1 tab PO QID 05/23/18 06/28/24 History mg tablet (Percocet) alprazolam 0.5 mg tablet (Xanax) 0.5 mg PO TID 11/29/19 06/28/24 History levothyroxine 25 mcg tablet 25 mcg PO DAILY 06/05/21 06/27/24 History insulin glargine 100 60 units SQ DAILY 02/22/22 06/27/24 History unit-lixisenatide 33 mcg/mL subcutaneous pen febuxostat 40 mg tablet 40 mg PO DAILY 02/09/23 06/27/24 History potassium chloride 20 mEq 20 meq PO DAILY 04/15/23 06/28/24 History tablet,extended release(part/cryst) calcitriol 0.25 mcg capsule 0.25 mcg PO DAILY 10/30/23 06/27/24 History warfarin 4 mg tablet 4 mg PO SUTUWETHSA 10/31/23 06/27/24 History warfarin 4 mg tablet 2 mg PO MOFR 11/25/23 06/27/24 History duloxetine 60 mg capsule,delayed 60 mg PO HS 03/06/24 06/27/24 History release dexlansoprazole 30 mg 30 mg PO DAILY 03/29/24 06/27/24 History capsule,biphase delayed release (Dexilant) bumetanide 2 mg tablet 2 mg PO DIRECTED 06/15/24 06/28/24 History metolazone 2.5 mg tablet 2.5 mg PO DAILYP PRN edema 06/15/24 06/28/24 History spironolactone 50 mg tablet 50 mg PO DIRECTED 06/15/24 06/28/24 History insulin glargine 100 unit/mL (3 10 unit SQ HS 06/27/24 06/27/24 History mL) subcutaneous pen (Lantus Solostar U-100 Insulin) metoprolol succinate 100 mg 100 mg PO BID 06/27/24 06/27/24 History tablet,extended release 24 hr Ertapenem Sodium [Invanz 1gm Vial] 100 mls/hr IV Q24H 06/28/24 Rx 1 gm New Prescriptions to Start Prescriptions: Ertapenem Sodium [Invanz 1gm Vial] 1 gm 0.9 % Sodium Chloride [Sod Chlor 0.9% 50mL bag] 50 ml 100 mls/hr IV Q24H Allergies Allergy/AdvReac Type Severity Reaction Status Date / Time codeine [CODEINE] Allergy Unknown nausea, Verified 06/23/24 11:00 swelling Corticosteroids Allergy Unknown Unknown Verified 06/23/24 11:00 (Glucocorticoids) allergy [CORTICOSTEROIDS reaction (GLUCOCORTICOIDS)] NSAIDS (Non-Steroidal Allergy Unknown Other Verified 06/28/24 00:37 Anti-Inflamma rosuvastatin [From CRESTOR] Allergy Unknown Unknown Verified 06/23/24 11:00 allergy reaction theophylline [From DAVID-DUR] Allergy Unknown Unknown Verified 06/23/24 11:00 allergy reaction Iodinated Contrast Media AdvReac Severe shuts Verified 06/23/24 11:00 [IODINATED CONTRAST- ORAL kidneys AND IV DYE] down and bleeding buprenorphine [From BUPRENEX] AdvReac Intermediate Nausea Verified 06/23/24 11:00 levofloxacin [From Levaquin] AdvReac Verified 06/23/24 11:00 lisinopril AdvReac Cough Verified 06/23/24 11:00 prednisone AdvReac Unknown Verified 06/23/24 11:00 allergy reaction sacubitril [From Entresto] AdvReac Hypotension Verified 06/23/24 11:00 valsartan [From Entresto] AdvReac Hypotension Verified 06/23/24 11:00 Exam Data for Last 24 hours Vital signs and Labs for Last 24 Hours: Temp Pulse Resp BP Pulse Ox O2 Del Method 98.6 F 79 16 128/57 L 95 Room Air 06/27/24 21:25 06/27/24 21:25 06/27/24 21:25 06/27/24 21:25 06/27/24 20:16 06/27/24 21:25 Laboratory Results - last 24 hr 06/27/24 20:15: Urine Color Yellow, Urine Appearance Clear, Urine pH 6.0, Ur Specific [place] 1.015, Urine Protein Negative, Urine Glucose (UA) Trace, Urine Ketones Negative, Urine Blood Negative, Urine Nitrate Positive, Urine Bilirubin Negative, Urine Urobilinogen 0.2, Ur Leukocyte Esterase 1+ A, Urine RBC Occasional, Urine WBC 50-100, Ur Squamous Epith Cells 5-10, Urine Bacteria 4+ 06/27/24 20:30: WBC 8.6, RBC 2.92 L, Hgb 7.5 L, Hct 24.3 L, MCV 83.3, MCH 25.7 L, MCHC 30.8 L, RDW 20.9 H, Plt Count 294, MPV 9.3, Neut % (Auto) 81.9 H, Lymph % (Auto) 7.0 L, [place] % (Auto) 5.9, Eos % (Auto) 4.8, Baso % (Auto) 0.5, Neut # (Auto) 7.1, Lymph # (Auto) 0.6 L, [place] # (Auto) 0.5, Eos # (Auto) 0.4, Baso # (Auto) 0.0, Sodium 131 L, Potassium 4.6, Chloride 94 L, Carbon Dioxide 28, Anion Gap 13.6, BUN 46 H, Creatinine 1.70 H, Estimated Creat Clear 46, Estimated GFR 31 L, Est GFR ( Amer) 37 L, Glucose 372 H, Calcium 9.0, Total Bilirubin 0.7, AST 29, ALT 22, Alkaline Phosphatase 99, Total Protein 6.8, Albumin 4.0, Globulin 2.8, Albumin/Globulin Ratio 1.4, Blood Type O Positive, Antibody Screen Negative I & O for Last 24 hours: Intake & Output 06/24/24 06/25/24 06/26/24 06/27/24 23:59 23:59 23:59 23:59 Weight 83.915 kg Microbiology Reports for the Last 24 Hours: Drug-resistant urinary tract infection, Narrative: Patient has been placed on IV antibiotics that we will cover her bacteria in the urinary tract Constitutional Constitutional: no acute distress and obese Comments: Patient is actually in a very good condition she says for herself. She denies any changes at this time but still has history of nausea and vomiting. She noted to me she has diabetes but is not very strict with her diet *Routine HEENT Exam Head: Present normocephalic and atraumatic Eye: Present EOMI and PERRL ENT: Present mucous membranes moist *Routine Neck Exam Neck: Present supple and full ROM Routine Chest/Breast/Axilla Exam Comments: No deficits noted, equal expansions on respiration *Routine Respiratory Exam Respiratory: Present normal respiratory effort, able to speak in complete sentences and symmetric chest movement *Routine Cardiovascular Exam Cardiovascular: Present RRR, Normal S1 and Normal S2 Comments: Mild murmur is noted, patient states normally you can hear the mechanical click very easily but I was not picking it up very well during this exam *Routine Abdominal Exam Abdominal: Present soft, normoactive bowel sounds, tenderness, firm and obese Comments: Just generalized abdominal pain on palpation no guarding nothing's even moderate *Routine Rectal Exam Rectal:: deferred *Routine Genitalia Exam Genitalia:: deferred *Routine Extremities Exam Comments: Is able to move her arms and legs well no sign of injury no signs of abnormal bruising Routine Back/Spine/Pelvis Exam Back/Spine: Present full ROM and paraspinal tenderness (Patient notes she does have lower mid back pain on a regular basis, no CVA tenderness was found on exam) *Routine Skin Exam Skin: Present intact, dry, warm and normal turgor *Routine Neurological Exam Neurological: Present alert, oriented X3 and CN II-XII intact Routine Psychiatric Exam Psychiatric: Present cooperative, good insight and good judgment Comments: Pleasant patient asked answers questions well and is easy to talk to H&P: Result Impressions 1. Multiple medical problems related to her autoimmune disease, cardiac condition, pulmonary hypertension, the seem to be in good control at the present time 2. Urinary tract infection with drug-resistant organism, proper antibiotic IV has been started no p.o. medication was available for this bacteria so admitting the patient is needed. Did talk with the ER provider and do agree this is necessary with her significant past medical history 3. Chronic cardiac and pulmonary issues. Patient may require some fluids must be dealt with carefully as she goes into congestive heart failure very easily. She has significant renal insufficiency. Cardiology has been consulted. Patient noted she was to have a pacer/defibrillator implanted later this month. Assessment and Plan *Assessment and plan (1) Urinary tract infection: Status: Acute Category: Medical Code(s): N39.0 - Urinary tract infection, site not specified (2) Infection due to ESBL-producing Escherichia coli: Status: Acute Category: Medical Code(s): A49.8 - Other bacterial infections of unspecified site; Z16.12 - Extended spectrum beta lactamase (ESBL) resistance (3) Diarrhea: Status: Acute Qualifiers: Diarrhea type: unspecified type Qualified Code(s): R19.7 - Diarrhea, unspecified Category: Medical Code(s): R19.7 - Diarrhea, unspecified (4) Pulmonary hypertension: Status: Suspected Category: Medical Code(s): I27.20 - Pulmonary hypertension, unspecified (5) Anemia: Status: Acute Qualifiers: Anemia type: unspecified type Qualified Code(s): D64.9 - Anemia, unspecified Category: Medical Code(s): D64.9 - Anemia, unspecified (6) Hemolytic uremic syndrome: Status: Acute Category: Medical Code(s): D59.30 - Hemolytic-uremic syndrome, unspecified (7) Chronic renal insufficiency, stage III (moderate): Status: Acute Category: Medical Code(s): N18.30 - Chronic kidney disease, stage 3 unspecified (8) Iron deficiency anemia: Status: Acute Category: Medical Code(s): D50.9 - Iron deficiency anemia, unspecified Plan Ms. Costa is a 59-year-old female with significant past medical history of diabetes, COPD, CAD, A-fib, mechanical heart valve, chronic anticoagulation. Presented to the ER this past weekend with abdominal pain and back pain. Workup found UTI. Started on antibiotics but unfortunately found to have ESBL E. coli. Return to the ER for antibiotics and admission. Discussed case with ER physician, request admission for further management. Medicine agreed to admit. Started on Zosyn based on sensitivity profile. Problems addressed as follows: ESBL UTI, E. coli -Initiated on Zosyn. -Repeat culture pending -Will plan for at least 7 days of antibiotics. COPD KIM -DuoNebs as needed, stable at this time. Oxygen overnight as she does not have her CPAP, goal sats greater 90% HFrEF with acute on chronic exacerbation Chronic atrial fibrillation -Continue metoprolol succinate 100 mg twice daily -Does not appear in exacerbation at this time Mechanical mitral valve -Functioning appropriately, Continue Coumadin therapy. INR 2.7, at goal 2.5-3.5. -Will have close follow-up with Coumadin clinic upon discharge Chronic kidney disease, stable BUN 46, creatinine 1.7. Around patient's baseline. Repeat labs in the morning Diabetes: -Sliding scale insulin with fingersticks ACHS -A1c traditionally well-controlled in the 6 range. Continue levothyroxine 25 mcg daily Full code Anticoagulated on warfarin Diabetic diet Rounded on patient after nurse practitioner. Personally examined and interviewed patient. Agree with exam findings and care plan as documented.
[2024-06-27 22:04] VITALS: PULSE 80
[2024-06-27] MEDS: DULOXETINE 30MG CAPSULE.DR 60 MG PO (23:20)
[2024-06-27] MEDS: INSULIN GLARGINE 100 UNITS/ML 10ML VIAL 10 UNIT SQ (23:20)
[2024-06-27] MEDS: OXYCODONE 10MG W/APAP 325MG TABLET 1 EACH PO (23:20)
[2024-06-28] VITALS (19 sets, daily range): BP systolic 92–126; BP diastolic 51–83; PULSE 70–90; RESP 16–18; TEMP 36.5–36.9; O2SAT 92–100; BMI 33.0
[2024-06-28] MEDS: PIPERACILLIN/TAZO 3.375 GM in 0.9 % SODIUM CHLORIDE 50 ML IV (05:15)
--- NOTE | 2024-06-28 05:41 | PC.NURSE ---
Patient alert and oriented x4 throughout shift. Tolerates room air well when awake. Has had on 2L NC while sleeping, patient states it is her home baseline. IV antibiotics administered per JAN. Ambulates independently to/from restroom well. No complaints or needs expressed this shift. Call light within reach.
[2024-06-28] MEDS: LEVOTHYROXINE 25MCG (0.025MG) TAB 25 MCG PO (06:01)
[2024-06-28 06:08] LABS: POC Glucose,Bedside 272 (70-110)
[2024-06-28] MEDS: humaLOG 100 UNITS/ML 10ML VIAL (SSI) SQ ×2 (06:21→11:07)
[2024-06-28 07:06] LABS: Basophils # 0.1 K/mm3 (0-0.2); Basophils % 0.6 % (0.1-2.0); Eosinophils # 0.5 K/mm3 (0.0-0.4); Eosinophils % 7.1 % (0.1-12.0); Hematocrit 23.3 % (37.0-47.0); Hemoglobin 7.4 g/dL (12.2-16.2); Lymphocytes # 0.7 K/mm3 (0.7-4.5); Lymphocytes % 9.4 % (10-50); Mean Corpuscular HGB Conc 31.5 g/dL (31.8-35.4); Mean Corpuscular Volume 82.4 fl (81-99); Mean Platelet Volume 8.9 fl (7.4-10.4); Monocytes # 0.5 K/mm3 (0.1-1.0); Monocytes % 6.4 % (1.7-9.3); Neutrophils # 5.6 K/mm3 (1.8-7.8); Neutrophils % 76.5 % (37.0-80.0); Platelet Count 284 K/mm3 (142-424); Red Blood Count 2.83 M/mm3 (4.20-5.40); Red Cell Distribution Width 20.8 % (11.5-17.5); White Blood Count 7.4 K/mm3 (4.8-10.8)
[2024-06-28 07:11] LABS: Chloride 98 mmol/L (98-107); Potassium 4.5 mmoL/L (3.5-5.1); Sodium 134 mmol/L (136-145)
[2024-06-28 07:13] LABS: Blood Urea Nitrogen 50 mg/dl (7-17); Creatinine Clearance Estimated 41 mL/min (50-200); Estimated Glomerular Filt Rate 25 ml/min (>60); GFR (African American) 31 ML/MIN (>60); INR 2.73 (0.9-1.1); Prothrombin Time 27.7 seconds (10.1-12.5)
[2024-06-28 07:14] LABS: Alanine Aminotransferase 16 U/L (12-78); Albumin/Globulin Ratio 1.6 (1.1-1.8); Alkaline Phosphatase 130 U/L (38-126); Anion Gap 10.5 mEq/L (5-15); Aspartate Amino Transferase 25 U/L (14-36); Bilirubin,Total 0.7 mg/dl (0.2-1.3); Calcium 8.7 mg/dl (8.4-10.2); Carbon Dioxide 30 mmol/L (22.0-30.0); Globulin 2.5 g/dL (1.3-3.2); Glucose 236 mg/dl (74-100); Magnesium 2.2 mg/dl (1.6-2.3); Total Protein,Serum 6.5 g/dl (6.3-8.2)
--- NOTE | 2024-06-28 09:11 | HMH.PHAINT1 ---
Pharmacy Intervention Comments: MEDICATION RECONCILIATION COMPLETED ON PATIENT USING EXTERNAL FILL HISTORY FROM PHARMACY. -JOY ALLEN, TARYND
--- NOTE | 2024-06-28 09:25 | XR_ITS ---
FINAL REPORT CLINICAL HISTORY: CHF, COPD COMPARISON: 04/24/2024 FINDINGS: A single portable view of the chest was obtained. Cardiomegaly is present in this patient who has undergone a prior midline sternotomy. A right chest port remains present. The mediastinum is within normal limits. Mild pulmonary vascular congestion persists, slightly worse than seen on the prior exam. The bony thorax is intact. IMPRESSION: Mild pulmonary vascular congestion, slightly worse than seen on the prior exam. Cardiomegaly remained stable. Reviewed, Interpreted and Dictated by Pravin Crespo III, MD Transcribed by Luanne Castaneda Authenticated and [facility]
--- NOTE | 2024-06-28 09:31 | EXP.DC.SUM ---
General Admission date:: 06/27/24 Discharge date: 06/28/24 HPI HPI HPI: This patient who has multiple medical problems including having to receive blood transfusions. She was seen in the ER on 06/25/2024, for nausea vomiting diarrhea related to possibly eating out.. Patient was found to have urinary tract infection +3 leukocytes and started on Omnicef, patient was send called when urinalysis came back with a significant drug-resistant urinary tract infection. She is coming to the emergency room and been started on IV antibiotic that covers the infection. Will need to admit the patient as I do agree with the ER physician. The patient needs IV antibiotics for the UTI plus with her cardiac history can go into congestive heart failure quite easily., Also noting for pulmonary hypertension. Dr. Roger is her railcar brake operator and Dr. Sawyer is her carbon lamp cleaner Hospital Course Hospital Course Hospital Course: Ms. Costa is a 59-year-old female with significant past medical history of diabetes, COPD, CAD, A-fib, mechanical heart valve, chronic anticoagulation. Presented to the ER this past weekend with abdominal pain and back pain. Workup found UTI. Started on antibiotics but unfortunately found to have ESBL E. coli. Return to the ER for antibiotics and admission. Discussed case with ER physician, request admission for further management. Medicine agreed to admit. Started on Zosyn based on sensitivity profile. Transition to ertapenem by morning. Will continue ertapenem to complete 7 days of antibiotics. Plan to have patient return for outpatient infusion. Overall doing well. Stable discharge home. Problems addressed as follows: ESBL UTI, E. coli -Initiated on Zosyn. Repeat cultures obtained. Sensitivities show E. coli sensitive to Zosyn, ertapenem, meropenem. For ease of dosing, will transition to Zosyn 1 g daily to complete 7 days total of therapy. Patient to come back to outpatient infusion for daily treatment. States comfort with this plan. Also is scheduled to come back on Wednesday for iron infusion for her chronic anemia. COPD KIM -Stable during admission. Recommend resuming CPAP at home. Continue home breathing treatment regimen. HFrEF with acute on chronic exacerbation Chronic atrial fibrillation -Continue metoprolol succinate 100 mg twice daily. Does not appear in exacerbation at this time. Can continue diuretic regimen with spironolactone 50 mg daily, metolazone 2.5 mg daily as needed, Bumex 2 mg daily. Mechanical mitral valve Anemia, chronic -Continue Coumadin therapy. INR 2.7, at goal 2.5-3.5. Continue warfarin per home regimen. Scheduled to see Coumadin clinic next week. Concern for acute on chronic anemia. Hemoglobin 7.4. Transfused 1 unit packed red blood cells. Improvement posttransfusion to at least 7.8. Recommend repeat labs in a week to evaluate for need for further transfusions. Chronic kidney disease, stable Diabetes: Stable during admission. Resume home regimen at discharge. Hypothyroid: Continue levothyroxine 25 mcg daily Continue Cymbalta and alprazolam for mood Stable to discharge home with close outpatient follow-up. Case management assisted with scheduling antibiotic infusions. Total time spent on discharge 32 minutes in counseling, documentation, chart review, and direct care with patient. Exam Data for Last 24 hours Vital signs and Labs for Last 24 Hours: Temp Pulse Resp BP Pulse Ox O2 Del Method O2 Flow Rate 98.4 F 80 17 115/69 98 Nasal Cannula 2 06/28/24 07:52 06/28/24 08:00 06/28/24 07:52 06/28/24 07:52 06/28/24 07:52 06/28/24 07:52 06/28/24 07:52 Laboratory Results - last 24 hr 06/27/24 20:15: Urine Color Yellow, Urine Appearance Clear, Urine pH 6.0, Ur Specific [place] 1.015, Urine Protein Negative, Urine Glucose (UA) Trace, Urine Ketones Negative, Urine Blood Negative, Urine Nitrate Positive, Urine Bilirubin Negative, Urine Urobilinogen 0.2, Ur Leukocyte Esterase 1+ A, Urine RBC Occasional, Urine WBC 50-100, Ur Squamous Epith Cells 5-10, Urine Bacteria 4+ 06/27/24 20:30: WBC 8.6, RBC 2.92 L, Hgb 7.5 L, Hct 24.3 L, MCV 83.3, MCH 25.7 L, MCHC 30.8 L, RDW 20.9 H, Plt Count 294, MPV 9.3, Neut % (Auto) 81.9 H, Lymph % (Auto) 7.0 L, Garden % (Auto) 5.9, Eos % (Auto) 4.8, Baso % (Auto) 0.5, Neut # (Auto) 7.1, Lymph # (Auto) 0.6 L, Garden # (Auto) 0.5, Eos # (Auto) 0.4, Baso # (Auto) 0.0, Sodium 131 L, Potassium 4.6, Chloride 94 L, Carbon Dioxide 28, Anion Gap 13.6, BUN 46 H, Creatinine 1.70 H, Estimated Creat Clear 46, Estimated GFR 31 L, Est GFR ( Amer) 37 L, Glucose 372 H, Calcium 9.0, Total Bilirubin 0.7, AST 29, ALT 22, Alkaline Phosphatase 99, Total Protein 6.8, Albumin 4.0, Globulin 2.8, Albumin/Globulin Ratio 1.4, Blood Type O Positive, Antibody Screen Negative 06/28/24 06:00: POC Glucose 272 H 06/28/24 06:53: WBC 7.4, RBC 2.83 L, Hgb 7.4 L, Hct 23.3 L, MCV 82.4, MCH 26.0 L, MCHC 31.5 L, RDW 20.8 H, Plt Count 284, MPV 8.9, Neut % (Auto) 76.5, Lymph % (Auto) 9.4 L, Garden % (Auto) 6.4, Eos % (Auto) 7.1, Baso % (Auto) 0.6, Neut # (Auto) 5.6, Lymph # (Auto) 0.7, Garden # (Auto) 0.5, Eos # (Auto) 0.5 H, Baso # (Auto) 0.1, PT 27.7 H, INR 2.73 H, Sodium 134 L, Potassium 4.5, Chloride 98, Carbon Dioxide 30, Anion Gap 10.5, BUN 50 H, Creatinine 2.00 H, Estimated Creat Clear 41, Estimated GFR 25 L, Est GFR ( Amer) 31 L, Glucose 236 H D, Calcium 8.7, Magnesium 2.2, Total Bilirubin 0.7, AST 25, ALT 16 D, Alkaline Phosphatase 130 H, Total Protein 6.5, Albumin 4.0, Globulin 2.5, Albumin/Globulin Ratio 1.6 I & O for Last 24 hours: Intake & Output 06/25/24 06/26/24 06/27/24 06/28/24 23:59 23:59 23:59 23:59 Intake Total 50 / 50 Output Total 0 / 0 0 / 0 Balance 0 / 0 50 / 50 Weight 83.915 kg 87.725 kg Constitutional Constitutional: no acute distress, obese and chronically ill appearing *Routine HEENT Exam Head: Present normocephalic Eye: Present EOMI and PERRL ENT: Present mucous membranes moist *Routine Neck Exam Neck: Present supple; Absent lymphadenopathy *Routine Respiratory Exam Respiratory: Present rhonchi; Absent wheezes or crackles *Routine Cardiovascular Exam Cardiovascular: Present murmur (Mechanical systolic), click and irregularly irregular *Routine Abdominal Exam Abdominal: Present soft and normoactive bowel sounds; Absent tenderness *Routine Rectal Exam Patient deferred: visual exam *Routine Exam Patient deferred: external exam *Routine Extremities Exam Extremities: Absent cyanosis, clubbing or edema *Routine Skin Exam Skin: Present warm; Absent rash *Routine Neurological Exam Neurological: Present alert, oriented X3 and moving all extremities; Absent altered mental status Results Data Completed and Pending Labs on day of discharge: Labs from last 24 hours 06/28/24 06/28/24 06/27/24 06:53 06:00 20:30 WBC 7.4 8.6 RBC 2.83 L 2.92 L Hgb 7.4 L 7.5 L Hct 23.3 L 24.3 L MCV 82.4 83.3 MCH 26.0 L 25.7 L MCHC 31.5 L 30.8 L RDW 20.8 H 20.9 H Plt Count 284 294 MPV 8.9 9.3 Neut % (Auto) 76.5 81.9 H Lymph % (Auto) 9.4 L 7.0 L [place] % (Auto) 6.4 5.9 Eos % (Auto) 7.1 4.8 Baso % (Auto) 0.6 0.5 Neut # (Auto) 5.6 7.1 Lymph # (Auto) 0.7 0.6 L [place] # (Auto) 0.5 0.5 Eos # (Auto) 0.5 H 0.4 Baso # (Auto) 0.1 0.0 PT 27.7 H INR 2.73 H Sodium 134 L 131 L Potassium 4.5 4.6 Chloride 98 94 L Carbon Dioxide 30 28 Anion Gap 10.5 13.6 BUN 50 H 46 H Creatinine 2.00 H 1.70 H Estimated Creat Clear 41 46 Estimated GFR 25 L 31 L Est GFR ( Amer) 31 L 37 L Glucose 236 H D 372 H POC Glucose 272 H Calcium 8.7 9.0 Magnesium 2.2 Total Bilirubin 0.7 0.7 AST 25 29 ALT 16 D 22 Alkaline Phosphatase 130 H 99 Total Protein 6.5 6.8 Albumin 4.0 4.0 Globulin 2.5 2.8 Albumin/Globulin Ratio 1.6 1.4 Urine Color Urine Appearance Urine pH Ur Specific [place] Urine Protein Urine Glucose (UA) Urine Ketones Urine Blood Urine Nitrate Urine Bilirubin Urine Urobilinogen Ur Leukocyte Esterase Urine RBC Urine WBC Ur Squamous Epith Cells Urine Bacteria Blood Type O Positive Antibody Screen Negative 06/27/24 20:15 WBC RBC Hgb Hct MCV MCH MCHC RDW Plt Count MPV Neut % (Auto) Lymph % (Auto) Garden % (Auto) Eos % (Auto) Baso % (Auto) Neut # (Auto) Lymph # (Auto) [place] # (Auto) Eos # (Auto) Baso # (Auto) PT INR Sodium Potassium Chloride Carbon Dioxide Anion Gap BUN Creatinine Estimated Creat Clear Estimated GFR Est GFR ( Amer) Glucose POC Glucose Calcium Magnesium Total Bilirubin AST ALT Alkaline Phosphatase Total Protein Albumin Globulin Albumin/Globulin Ratio Urine Color Yellow Urine Appearance Clear Urine pH 6.0 Ur Specific [place] 1.015 Urine Protein Negative Urine Glucose (UA) Trace Urine Ketones Negative Urine Blood Negative Urine Nitrate Positive Urine Bilirubin Negative Urine Urobilinogen 0.2 Ur Leukocyte Esterase 1+ A Urine RBC Occasional Urine WBC 50-100 Ur Squamous Epith Cells 5-10 Urine Bacteria 4+ Blood Type Antibody Screen DS: Diagnosis Discharge Diagnosis (1) Urinary tract infection: Status: Acute Code(s): N39.0 - Urinary tract infection, site not specified (2) Infection due to ESBL-producing Escherichia coli: Status: Acute Code(s): A49.8 - Other bacterial infections of unspecified site; Z16.12 - Extended spectrum beta lactamase (ESBL) resistance (3) Diarrhea: Status: Acute Code(s): R19.7 - Diarrhea, unspecified Qualifiers: Diarrhea type: unspecified type Qualified Code(s): R19.7 - Diarrhea, unspecified (4) Pulmonary hypertension: Status: Suspected Code(s): I27.20 - Pulmonary hypertension, unspecified (5) Anemia: Status: Acute Code(s): D64.9 - Anemia, unspecified Qualifiers: Anemia type: unspecified type Qualified Code(s): D64.9 - Anemia, unspecified (6) Hemolytic uremic syndrome: Status: Acute Code(s): D59.30 - Hemolytic-uremic syndrome, unspecified (7) Chronic renal insufficiency, stage III (moderate): Status: Acute Code(s): N18.30 - Chronic kidney disease, stage 3 unspecified (8) Iron deficiency anemia: Status: Acute Code(s): D50.9 - Iron deficiency anemia, unspecified Meds Home Medications and Allergies Home Medications ?Medication ?Instructions ?Recorded ?Confirmed ?Type aspirin 81 mg tablet,delayed 81 mg PO DAILY 12/01/17 06/27/24 History release (Adult Low Dose Aspirin) oxycodone-acetaminophen 10 mg-325 1 tab PO QID 05/23/18 06/28/24 History mg tablet (Percocet) alprazolam 0.5 mg tablet (Xanax) 0.5 mg PO TID 11/29/19 06/28/24 History levothyroxine 25 mcg tablet 25 mcg PO DAILY 06/05/21 06/27/24 History insulin glargine 100 60 units SQ DAILY 02/22/22 06/27/24 History unit-lixisenatide 33 mcg/mL subcutaneous pen febuxostat 40 mg tablet 40 mg PO DAILY 02/09/23 06/27/24 History potassium chloride 20 mEq 20 meq PO DAILY 04/15/23 06/28/24 History tablet,extended release(part/cryst) calcitriol 0.25 mcg capsule 0.25 mcg PO DAILY 10/30/23 06/27/24 History warfarin 4 mg tablet 4 mg PO SUTUWETHSA 10/31/23 06/27/24 History warfarin 4 mg tablet 2 mg PO MOFR 11/25/23 06/27/24 History duloxetine 60 mg capsule,delayed 60 mg PO HS 03/06/24 06/27/24 History release dexlansoprazole 30 mg 30 mg PO DAILY 03/29/24 06/27/24 History capsule,biphase delayed release (Dexilant) bumetanide 2 mg tablet 2 mg PO DIRECTED 06/15/24 06/28/24 History metolazone 2.5 mg tablet 2.5 mg PO DAILYP PRN edema 06/15/24 06/28/24 History spironolactone 50 mg tablet 50 mg PO DIRECTED 06/15/24 06/28/24 History insulin glargine 100 unit/mL (3 10 unit SQ HS 06/27/24 06/27/24 History mL) subcutaneous pen (Lantus Solostar U-100 Insulin) metoprolol succinate 100 mg 100 mg PO BID 06/27/24 06/27/24 History tablet,extended release 24 hr Ertapenem Sodium [Invanz 1gm Vial] 100 mls/hr IV Q24H 06/28/24 Rx 1 gm New Prescriptions to Start Prescriptions: Ertapenem Sodium [Invanz 1gm Vial] 1 gm 0.9 % Sodium Chloride [Sod Chlor 0.9% 50mL bag] 50 ml 100 mls/hr IV Q24H Allergies Allergy/AdvReac Type Severity Reaction Status Date / Time codeine [CODEINE] Allergy Unknown nausea, Verified 06/23/24 11:00 swelling Corticosteroids Allergy Unknown Unknown Verified 06/23/24 11:00 (Glucocorticoids) allergy [CORTICOSTEROIDS reaction (GLUCOCORTICOIDS)] NSAIDS (Non-Steroidal Allergy Unknown Other Verified 06/28/24 00:37 Anti-Inflamma rosuvastatin [From CRESTOR] Allergy Unknown Unknown Verified 06/23/24 11:00 allergy reaction theophylline [From DAVID-DUR] Allergy Unknown Unknown Verified 06/23/24 11:00 allergy reaction Iodinated Contrast Media AdvReac Severe shuts Verified 06/23/24 11:00 [IODINATED CONTRAST- ORAL kidneys AND IV DYE] down and bleeding buprenorphine [From BUPRENEX] AdvReac Intermediate Nausea Verified 06/23/24 11:00 levofloxacin [From Levaquin] AdvReac Verified 06/23/24 11:00 lisinopril AdvReac Cough Verified 06/23/24 11:00 prednisone AdvReac Unknown Verified 06/23/24 11:00 allergy reaction sacubitril [From Entresto] AdvReac Hypotension Verified 06/23/24 11:00 valsartan [From Entresto] AdvReac Hypotension Verified 06/23/24 11:00 Discharge Plan Disposition Patient Disposition: Home, Self-Care Condition: Fair Follow up Plan Follow up with: Reji Castro MD [Primary Care Provider] - 07/05/24 3:45 pm Prescriptions/Medication Reconciliation: New Ertapenem Sodium [Invanz 1gm Vial] 1 GM 0.9 % Sodium Chloride [Sod Chlor 0.9% 50mL bag] 50 ML 100 mls/hr IV Q24H Ordered By: Neptali Herbert MD Last Taken: 06/28/24 14:54 100 mls/hr Continued aspirin [Adult Low Dose Aspirin] 81 mg tablet,delayed release (DR/EC) 81 mg PO DAILY oxycodone-acetaminophen [Percocet] 10-325 mg tablet 1 tab PO QID alprazolam [Xanax] 0.5 mg tablet 0.5 mg PO TID potassium chloride 20 mEq tablet,ER particles/crystals 20 meq PO DAILY duloxetine 60 mg capsule,delayed release(DR/EC) 60 mg PO HS Patient Comments: TAKE (1) CAPSULE BY MOUTH ONCE A DAY. metolazone 2.5 mg tablet 2.5 mg PO DAILYP PRN (Reason: edema) bumetanide 2 mg tablet 2 mg PO DIRECTED Rx Instructions: 1 tablet in the am and 0.5 tablet in the pm spironolactone 50 mg tablet 50 mg PO DIRECTED Rx Instructions: 50 mg orally 1 tab in the am and 0.5 tab in the pm; levothyroxine 25 MCG tablet 25 mcg PO DAILY calcitriol 0.25 mcg Capsule 0.25 mcg PO DAILY warfarin 4 mg tablet 4 mg PO SUTUWETHSA warfarin 4 mg tablet 2 mg PO MOFR insulin glargine-lixisenatide 3 ML insulin pen 60 units SQ DAILY febuxostat 40 mg tablet 40 mg PO DAILY dexlansoprazole [Dexilant] 30 mg capsule,biphase delayed releas 30 mg PO DAILY Patient Comments: TAKE (1) CAPSULE BY MOUTH ONCE A DAY. insulin glargine [Lantus Solostar U-100 Insulin] 100 unit/mL (3 mL) insulin pen 10 unit SQ HS Patient Comments: INJECT 10 UNITS SUB-Q AT BEDTIME. EACH PEN EXPIRES 28 DAYS AFTER FIRST USE. metoprolol succinate 100 mg tablet extended release 24 hr 100 mg PO BID Problem Reconciliation Problems Reviewed?: Yes Patient Discharge Instructions ACTIVITY: Continue current activity DIET: continue same diet Patient Instructions: DI for Urinary Tract Infection (UTI) Print Language: Macanese Providers Primary Care Provider: Reji Castro Admit Provider: Neptali Herbert Attending Provider: Neptali Herbert
[2024-06-28] MEDS: OXYCODONE 10MG W/APAP 325MG TABLET 1 EACH PO (09:38)
[2024-06-28] MEDS: ASPIRIN EC 81MG TABLET 81 MG PO (09:38)
[2024-06-28] MEDS: METOPROLOL SUCCINATE XL 100MG TABLET 100 MG PO (09:38)
[2024-06-28] MEDS: PANTOPRAZOLE 40MG TABLET 40 MG PO (09:38)
[2024-06-28] MEDS: POTASSIUM CHLORIDE 20MEQ TAB 20 MEQ PO (09:38)
[2024-06-28] MEDS: BUMETANIDE 1 MG TABLET 2 MG PO (09:39)
[2024-06-28] MEDS: SPIRONOLACTONE 25MG TABLET 50 MG PO (09:39)
[2024-06-28 09:57] LABS: NT Pro Brain Natriuretic Pep. 805 pg/mL (0-125)
[2024-06-28] MEDS: WARFARIN 2MG TABLET 4 MG PO (10:57)
[2024-06-28 11:07] LABS: POC Glucose,Bedside 316 (70-110)
[2024-06-28] MEDS: ACETAMINOPHEN 325MG TAB 650 MG PO (11:36)
[2024-06-28] MEDS: diphenhydrAMINE 25MG CAPSULE 25 MG PO (11:37)
[2024-06-28] MEDS: 0.9 % SODIUM CHLORIDE 250 ML 25 ML IV (12:05)
[2024-06-28] MEDS: ERTAPENEM SODIUM 1 GM in 0.9 % SODIUM CHLORIDE 50 ML IV (14:54)
[2024-06-28 15:39] LABS: Hematocrit 26.1 % (37.0-47.0); Hemoglobin 7.8 g/dL (12.2-16.2)
--- NOTE | 2024-06-29 14:55 | CARE MANAGER ---
Contacted patient related to hospital discharge. She states she does not feel well. She continues with abdominal and back pain. She is getting her IV antibiotics and has an appointment scheduled with Dr. Castro. We discussed reaching out to his office if the pain does not get any better as her appointment is not until the . She denies any questions. JEREMIAH Hillman
== END 2024-06-28 16:30 | disposition home or self-care (01) ==
LOC: ER 20:53 → 2ND 21:33
PROVIDERS: Nurse Practitioner Family; Physician Assistant; Admitting Provider Internal Medicine Adolescent Medicine; Emergency Provider Emergency Medicine; PCP Internal Medicine Adolescent Medicine; Visit Provider Internal Medicine Adolescent Medicine
DX: N39.0 Urinary tract infection, site not specified (principal); A49.8 Other bacterial infections of unspecified site; Z16.12 Extended spectrum beta lactamase (ESBL) resistance; R19.7 Diarrhea, unspecified; I27.20 Pulmonary hypertension, unspecified; D50.8 Other iron deficiency anemias; D59.30 Hemolytic-uremic syndrome, unspecified; N18.30 Chronic kidney disease, stage 3 unspecified; D50.9 Iron deficiency anemia, unspecified; I13.0 Hypertensive heart and chronic kidney disease with heart failure and stage 1 through stage 4 chronic kidney disease, or unspecified chronic kidney disease; I48.91 Unspecified atrial fibrillation; E11.22 Type 2 diabetes mellitus with diabetic chronic kidney disease; I50.20 Unspecified systolic (congestive) heart failure; Z79.01 Long term (current) use of anticoagulants; Z79.899 Other long term (current) drug therapy; Z79.4 Long term (current) use of insulin; Z95.2 Presence of prosthetic heart valve
CPT/HCPCS: 36415; 71045; 80053; 81001; 82962; 83735; 83880; 85014; 85018; 85025; 85610; 86850; 87086; 87088; 87186; 99285; G0378; J0131; J1335; J1642; J2405; J2543; J7120; P9016

== ENCOUNTER 2024-06-29 12:42 | Outpatient (CLI) | payer MEDICARE, MEDICAID, SELFPAY ==
[2024-06-29] MEDS: SODIUM CHLORIDE 0.9% 10ML FLUSH SYRINGE 10 ML IV ×2 (12:58→13:39)
[2024-06-29] MEDS: ERTAPENEM SODIUM 1 GM in 0.9 % SODIUM CHLORIDE 50 ML IV (12:59)
[2024-06-29] MEDS: SODIUM CHLORIDE 0.9% 50ML BAG 50 ML IV (12:59)
[2024-06-29 13:03] VITALS: BP 124/54; PULSE 90; RESP 18; TEMP 37; O2SAT 95
[2024-06-29 13:39] VITALS: BP 128/69; PULSE 88; RESP 16; TEMP 37; O2SAT 96
== END 2024-06-29 13:40 | disposition home or self-care (01) ==
LOC: INF 12:43
PROVIDERS: PCP Internal Medicine Adolescent Medicine; Visit Provider Internal Medicine Adolescent Medicine
DX: D64.9 Anemia, unspecified (principal)
CPT/HCPCS: 96365; J1335; J1642

== ENCOUNTER 2024-06-30 12:58 | Outpatient (CLI) | payer MEDICARE, MEDICAID, SELFPAY ==
[2024-06-30 13:25] VITALS: BP 98/60; PULSE 91; RESP 17; O2SAT 95
[2024-06-30] MEDS: SODIUM CHLORIDE 0.9% 50ML BAG 50 ML IV (13:25)
[2024-06-30] MEDS: ERTAPENEM SODIUM 1 GM in 0.9 % SODIUM CHLORIDE 50 ML IV (13:25)
[2024-06-30 14:10] VITALS: BP 132/76; PULSE 88; RESP 17
[2024-06-30] MEDS: IRON SUCROSE COMPLEX 200 MG in 0.9 % SODIUM CHLORIDE 100 ML 220 MG IV (14:10)
[2024-06-30 14:45] VITALS: BP 102/59; PULSE 85; RESP 17; O2SAT 99
== END 2024-06-30 15:05 | disposition home or self-care (01) ==
LOC: INF 12:58
PROVIDERS: PCP Internal Medicine Adolescent Medicine; Visit Provider Internal Medicine Medical Oncology
DX: N39.0 Urinary tract infection, site not specified (principal); Z16.12 Extended spectrum beta lactamase (ESBL) resistance
CPT/HCPCS: 96365; 96367; J1335; J1642; J1756

== ENCOUNTER 2024-07-01 10:16 | Outpatient (CLI) | payer MEDICARE, MEDICAID, SELFPAY ==
[2024-07-01] MEDS: ERTAPENEM SODIUM 1 GM in 0.9 % SODIUM CHLORIDE 50 ML IV (10:35)
== END 2024-07-01 23:59 | disposition home or self-care (01) ==
LOC: INF 10:18
PROVIDERS: PCP Internal Medicine Adolescent Medicine; Visit Provider Internal Medicine Adolescent Medicine
DX: K92.2 Gastrointestinal hemorrhage, unspecified (principal)
CPT/HCPCS: 96365; J1335; J1642

== ENCOUNTER 2024-07-02 08:24 | Outpatient (CLI) | payer MEDICARE, MEDICAID, SELFPAY ==
[2024-07-02 08:42] VITALS: BP 112/68; PULSE 82; RESP 18; TEMP 37; O2SAT 96
[2024-07-02] MEDS: ERTAPENEM SODIUM 1 GM in 0.9 % SODIUM CHLORIDE 50 ML IV (08:43)
== END 2024-07-02 09:35 | disposition home or self-care (01) ==
PROVIDERS: PCP Internal Medicine Adolescent Medicine; Visit Provider Internal Medicine Adolescent Medicine
DX: K92.2 Gastrointestinal hemorrhage, unspecified (principal)
CPT/HCPCS: 96365; G0463; J1335; J1642

== ENCOUNTER 2024-07-03 07:50 | Outpatient (CLI) | payer MEDICARE, MEDICAID, SELFPAY ==
[2024-07-03 08:14] VITALS: BMI 32.2
[2024-07-03 08:25] VITALS: BP 103/68; PULSE 83; RESP 18; O2SAT 99
[2024-07-03] MEDS: 0.9 % SODIUM CHLORIDE 50 ML 100 ML IV (08:25)
[2024-07-03] MEDS: ERTAPENEM SODIUM 1 GM in 0.9 % SODIUM CHLORIDE 50 ML IV (08:25)
[2024-07-03 08:37] LABS: Basophils # 0.1 K/mm3 (0-0.2); Basophils % 0.7 % (0.1-2.0); Eosinophils # 0.5 K/mm3 (0.0-0.4); Eosinophils % 5.1 % (0.1-12.0); Hematocrit 26.2 % (37.0-47.0); Hemoglobin 7.7 g/dL (12.2-16.2); Lymphocytes # 0.7 K/mm3 (0.7-4.5); Lymphocytes % 6.9 % (10-50); Mean Corpuscular HGB Conc 29.2 g/dL (31.8-35.4); Mean Corpuscular Hemoglobin 25.4 pg (27.0-31.2); Mean Platelet Volume 8.8 fl (7.4-10.4); Monocytes # 0.5 K/mm3 (0.1-1.0); Monocytes % 5.7 % (1.7-9.3); Neutrophils # 7.6 K/mm3 (1.8-7.8); Neutrophils % 81.5 % (37.0-80.0); Platelet Count 326 K/mm3 (142-424); Red Blood Count 3.02 M/mm3 (4.20-5.40); Red Cell Distribution Width 21.5 % (11.5-17.5); White Blood Count 9.4 K/mm3 (4.8-10.8)
[2024-07-03 09:00] VITALS: BP 106/65; PULSE 81
[2024-07-03] MEDS: SODIUM CHLORIDE 0.9% 10ML FLUSH SYRINGE 10 ML IV (09:12)
== END 2024-07-03 09:10 | disposition home or self-care (01) ==
LOC: INF 07:51
PROVIDERS: Internal Medicine Medical Oncology; PCP Internal Medicine Adolescent Medicine; Visit Provider Internal Medicine Adolescent Medicine
DX: D64.9 Anemia, unspecified (principal)
CPT/HCPCS: 36591; 85025; 96365; J1335; J1642

== ENCOUNTER 2024-07-05 16:20 | Outpatient (CLI) | payer MEDICARE, MEDICAID, SELFPAY ==
[2024-07-05 16:22] VITALS: BMI 32.2
[2024-07-05] MEDS: SODIUM CHLORIDE 0.9% 10ML FLUSH SYRINGE 10 ML IV (16:30)
[2024-07-05 16:46] LABS: Basophils # 0.1 K/mm3 (0-0.2); Basophils % 0.7 % (0.1-2.0); Eosinophils # 0.4 K/mm3 (0.0-0.4); Eosinophils % 4.5 % (0.1-12.0); Hematocrit 25.6 % (37.0-47.0); Hemoglobin 7.5 g/dL (12.2-16.2); Lymphocytes # 0.7 K/mm3 (0.7-4.5); Lymphocytes % 8.8 % (10-50); Mean Corpuscular HGB Conc 29.2 g/dL (31.8-35.4); Mean Corpuscular Volume 85.8 fl (81-99); Mean Platelet Volume 8.3 fl (7.4-10.4); Monocytes # 0.5 K/mm3 (0.1-1.0); Monocytes % 5.6 % (1.7-9.3); Neutrophils # 6.6 K/mm3 (1.8-7.8); Neutrophils % 80.4 % (37.0-80.0); Platelet Count 300 K/mm3 (142-424); Red Blood Count 2.98 M/mm3 (4.20-5.40); Red Cell Distribution Width 21.2 % (11.5-17.5); White Blood Count 8.3 K/mm3 (4.8-10.8)
== END 2024-07-05 16:35 | disposition home or self-care (01) ==
LOC: INF 16:21
PROVIDERS: PCP Internal Medicine Adolescent Medicine; Visit Provider Internal Medicine Adolescent Medicine
DX: D64.9 Anemia, unspecified (principal)
CPT/HCPCS: 36591; 85025; 86850; J1642

== ENCOUNTER 2024-07-06 11:05 | Outpatient (CLI) | payer MEDICARE, MEDICAID, SELFPAY ==
[2024-07-06] VITALS (10 sets, daily range): BP systolic 93–130; BP diastolic 45–66; PULSE 86–95; RESP 16–17; TEMP 36.7–37.1; O2SAT 93–97; BMI 32.2
[2024-07-06 11:43] LABS: PHA INR Fingerstick 3.6 (0.9-1.1)
[2024-07-06] MEDS: diphenhydrAMINE 25MG CAPSULE 25 MG PO (11:48)
[2024-07-06] MEDS: 0.9 % SODIUM CHLORIDE 250 ML 100 ML IV (11:48)
[2024-07-06] MEDS: ACETAMINOPHEN 325MG TAB 650 MG PO (11:48)
[2024-07-06 12:13] LABS: Hemoglobin A1C 7.9 % (4.0-6.0)
--- NOTE | 2024-07-06 12:23 | PC.NURSE ---
1220-BLOOD TRANSFUSION STARTED AT 100 ML/HR THIS TIME.
--- NOTE | 2024-07-06 13:30 | PC.NURSE ---
1250-INCREASED RATE TO 150 ML/HR AT THIS TIME.
--- NOTE | 2024-07-06 14:00 | PC.NURSE ---
1320-INCREASED RATE TO 200 ML/HR AT THIS TIME.
--- NOTE | 2024-07-06 14:02 | PC.NURSE ---
PT WAS LATE FOR APPOINTMENT FOR 2 UNITS BLOOD TODAY. 1 UNIT INFUSING CURRENTLY. PT CONCERNED ABOUT FLUID OVERLOAD RECEIVING 2 UNITS TODAY. PT IS DUE TO RETURN FOR VENOFER TOMORROW. DR TOVAR OKAY WITH SPLITTING THE UNITS OVER 2 DAYS. ALSO SPOKE WITH BARBARA GEE IN CARE MANAGEMENT WHO OKAYED GIVING BOTH BLOOD AND VENOFER ON SAME DAY.
== END 2024-07-06 15:15 | disposition home or self-care (01) ==
LOC: INF 11:06
PROVIDERS: PCP Internal Medicine Adolescent Medicine; Visit Provider Internal Medicine Adolescent Medicine
DX: Z79.01 Long term (current) use of anticoagulants (principal); E11.9 Type 2 diabetes mellitus without complications
CPT/HCPCS: 36430; 83036; 85610; 99211; G0463; J1642; P9016

== ENCOUNTER 2024-07-07 08:58 | Outpatient (CLI) | payer MEDICARE, MEDICAID, SELFPAY ==
[2024-07-07] VITALS (12 sets, daily range): BP systolic 93–112; BP diastolic 45–68; PULSE 72–87; RESP 18; TEMP 36.4–37.1; O2SAT 97–98
[2024-07-07] MEDS: diphenhydrAMINE 25MG CAPSULE 25 MG PO (09:05)
[2024-07-07] MEDS: ACETAMINOPHEN 325MG TAB 650 MG PO (09:05)
[2024-07-07] MEDS: SODIUM CHLORIDE 0.9% 10ML FLUSH SYRINGE 10 ML IV (09:36)
[2024-07-07] MEDS: SODIUM CHLORIDE 0.9% 250ML BAG 250 ML IV (09:37)
[2024-07-07] MEDS: IRON SUCROSE COMPLEX 200 MG in 0.9 % SODIUM CHLORIDE 100 ML 220 MG IV (12:02)
== END 2024-07-07 12:50 | disposition home or self-care (01) ==
LOC: INF 08:58
PROVIDERS: PCP Internal Medicine Adolescent Medicine; Visit Provider Internal Medicine Adolescent Medicine
DX: I50.9 Heart failure, unspecified (principal); I48.91 Unspecified atrial fibrillation; Z79.01 Long term (current) use of anticoagulants
CPT/HCPCS: 36430; 96365; J1642; J1756; P9016

== ENCOUNTER 2024-07-11 13:04 | Observation (INO) | payer MEDICARE, MEDICAID, SELFPAY ==
[2024-07-11] VITALS (32 sets, daily range): BP systolic 90–151; BP diastolic 51–86; PULSE 67–90; RESP 13–20; TEMP 36.1–37.1; O2SAT 91–99; BMI 32.2; BMI 32.3
--- NOTE | 2024-07-11 07:22 | XR_ITS ---
FINAL REPORT CLINICAL HISTORY: new pacemaker/AID placement COMPARISON: 06/28/2024 FINDINGS: The heart size is enlarged, with moderate to severe cardiomegaly. There has been prior median sternotomy. A right port tip is present in the superior vena cava as seen on the prior exam. There is a new left subclavian pacemaker noted since the prior exam. There is no focal infiltrate or edema. There is no pleural effusion. There is no pneumothorax. IMPRESSION: A new left subclavian pacemaker is noted. No evidence of pneumothorax is seen. Reviewed, Interpreted and Dictated by Urbano Gracia MD Transcribed by Luanne Castaneda Authenticated and [facility]
[2024-07-11 08:33] LABS: Basophils # 0.1 K/mm3 (0-0.2); Basophils % 0.7 % (0.1-2.0); Eosinophils # 0.4 K/mm3 (0.0-0.4); Eosinophils % 4.6 % (0.1-12.0); Hematocrit 29.6 % (37.0-47.0); Lymphocytes # 0.6 K/mm3 (0.7-4.5); Lymphocytes % 7.3 % (10-50); Mean Corpuscular HGB Conc 30.4 g/dL (31.8-35.4); Mean Corpuscular Hemoglobin 26.9 pg (27.0-31.2); Mean Corpuscular Volume 88.4 fl (81-99); Mean Platelet Volume 8.7 fl (7.4-10.4); Monocytes # 0.6 K/mm3 (0.1-1.0); Monocytes % 6.4 % (1.7-9.3); Neutrophils # 7.1 K/mm3 (1.8-7.8); Neutrophils % 81.1 % (37.0-80.0); Platelet Count 324 K/mm3 (142-424); Red Blood Count 3.36 M/mm3 (4.20-5.40); Red Cell Distribution Width 20.7 % (11.5-17.5); White Blood Count 8.8 K/mm3 (4.8-10.8)
[2024-07-11 08:36] LABS: Chloride 93 mmol/L (98-107); Potassium 4.8 mmoL/L (3.5-5.1); Sodium 130 mmol/L (136-145)
[2024-07-11 08:39] LABS: Anion Gap 12.8 mEq/L (5-15); Blood Urea Nitrogen 60 mg/dl (7-17); Carbon Dioxide 29 mmol/L (22.0-30.0); Creatinine Clearance Estimated 42 mL/min (50-200); Estimated Glomerular Filt Rate 27 ml/min (>60); GFR (African American) 33 ML/MIN (>60)
[2024-07-11 08:40] LABS: Calcium 9.5 mg/dl (8.4-10.2); Prothrombin Time 30.1 seconds (10.1-12.5)
[2024-07-11 09:10] LABS: Glucose 413 mg/dl (74-100)
--- NOTE | 2024-07-11 09:14 | SUR.PHASEII ---
[id number], Dr. Sawyer notified.
[2024-07-11] MEDS: humaLOG 100 UNITS/ML 10ML VIAL (SSI) 15 UNIT SQ (09:23)
--- NOTE | 2024-07-11 09:57 | P.PNANES_ITS ---
[facility] Disclaimer: The information contained in this section may have been updated after the patient was seen, as this information can be updated by other users. Medical History CHF (NYHA class III, ACC/AHA stage C) Atrial fibrillation, chronic COPD exacerbation CHF exacerbation Anemia Systolic CHF Typical angina Dyspnea Rib fracture Blood transfusion reaction Autoimmune hemolytic anemia Arthritis Hernia Sinus problem Rheumatic heart disease Hypothyroidism Polyarthralgia Pulmonary edema HLD (hyperlipidemia) HTN (hypertension) CAD (coronary artery disease) DM type 2 (diabetes mellitus, type 2) DVT (deep venous thrombosis) Cardiomyopathy Arrhythmia Liver disease Thyroid disease Valvular heart disease Hypertension Hyperlipidemia GERD (gastroesophageal reflux disease) COPD (chronic obstructive pulmonary disease) Class 1 obesity CKD (chronic kidney disease) stage 3, GFR 30-59 ml/min Acute on chronic HFrEF (heart failure with reduced ejection fraction) Coronary artery disease Congestive heart failure, NYHA class III NYHA class 3 acute on chronic systolic heart failure Diabetes mellitus Hypertensive heart disease CHF (congestive heart failure) Diastolic heart failure Tricuspid valve regurgitation senior care current use of anticoagulants with INR goal of 2.5-3.5 Surgical History Mitral valve replaced History of colon resection H/O tubal ligation History of angioplasty History of renal stent History of ureteroscopy History of tubal ligation History of hernia repair History of cardiac catheterization History of mitral valve replacement with mechanical valve Family History Other Breast cancer COPD (chronic obstructive pulmonary disease) Colon cancer Family history of acute heart failure Family history of hyperlipidemia Family history of hypertension Family history of myocardial infarction Hypertension Stroke Social History Smoking Status: Former smoker tobacco type: cigarettes packs per day: 1 smoking status stop date: 01/09/2006 quit status: quit date established second hand exposure: Yes alcohol intake: never substance use type: denies use current occupational status: retired and disabled Travel in the last 8 weeks: None adopted: No caregiver/support person: No foster care: No household members: significant other housing: house lives independently: Yes marital status: life partner education level: college service: No fpc: No current occupational exposures/hazards: No sexually active: Yes how many partners: 1 are you practicing safe sex: Yes diet: diabetic well-balanced diet: about half the time caffeine: No eating out: rarely or never during the past year weight has: remained stable bhavya/sikhism: Religious special bhavya needs: No agree to transfusion: Yes helmet use: No water heater temp set < 120 deg: Yes working smoke detector in home: Yes fire extinguisher in home: Yes carbon monox detector in home: Yes firearms in home: No do you feel safe at home: Yes victim of physical abuse: No victim of emotional abuse: No victim of sexual abuse: No would you like helpful sources: No [facility] Anesthesia Checklist Patient Identification Patient Identification: Arm Band and Verbal (Name & ) Structural Data Admitted From: Home Planned Operative Procedure/s: Sual chamber PPM/AICD Consent for Planned Operative Procedure(s) Verified: Yes Verified Documents: Surgical Consent and History and Physical NPO Status Verified Time NPO: 22:30 Chart Verification Results Verified: CBC, BMP, PT, PTT, INR, Type and Screen, ECG and Chest Xray Additional verifications Fingerstick Blood Glucose: 455 Patient : No Anesthesia Reactions: No Hx Blood Transfusions: No Blood Transfusion Reaction: Yes Cardiovascular Assessment Pulse Rhythm: Irregular Peripheral Edema: No Airway Assessment Mallampati Score:: Class II C-Spine Mobility Assessed: Yes (FROM) TMJ Mobility Assessed: Yes Dentition: Poor Dentition (Nothing loose per pt.) Neurological Assessment Level of Consciousness: Awake, Alert, Appropriate and Follows Commands Hx Seizures: No Numbness or tingling in extremities: No Anesthesia Plan Anesthesia Risk discussed: Yes Anesthesia Plan: Verified ASA Class: III Anesthesia Type: MAC
[2024-07-11 10:08] LABS: POC Glucose,Bedside 455 (70-110)
[2024-07-11] MEDS: LIDOCAINE 1% W/EPI 1:100,000 20ML VIAL 20 ML SQ (10:14)
[2024-07-11] MEDS: 0.9 % SODIUM CHLORIDE 1000ML 1,000 ML 25 ML IV (10:14)
[2024-07-11] MEDS: CEFAZOLIN SODIUM 1 GM in 0.9 % SODIUM CHLORIDE 50 ML IV (10:14)
[2024-07-11] MEDS: CEFAZOLIN 1GM VIAL 1 GM TP (10:14)
[2024-07-11] MEDS: diphenhydrAMINE 50MG/ML VIAL 50 MG IV (10:15)
--- NOTE | 2024-07-11 12:46 | SUR.PHASEII ---
radiology called for portable chest d/t placement of pacemaker
--- NOTE | 2024-07-11 12:57 | SUR.PHASEII ---
radiology at bedside.
--- NOTE | 2024-07-11 13:01 | EXP.ANES.I ---
[facility] Anesthesia Record Part I Anesthesia Record I Intake, IV Amount: 500 Hydration: Adequate Estimated blood loss (mL): 25 Urine output (mL): 0 Blood Products used (#): none Blood Pressure: 138/73 SaO2: 94 Pulse Rate: 80 Airway Patency: Patent Respiratory Rate: 20 Temperature: 97.9 F Patient is:: Awake (Talking) and Stable Stable to PACU at:: 12:42
[2024-07-11 13:02] LABS: Hematocrit 25.5 % (37.0-47.0)
--- NOTE | 2024-07-11 13:02 | SUR.PHASEII ---
per house pt is going to room 203.
--- NOTE | 2024-07-11 13:15 | HMH.PHAINT1 ---
Pharmacy Intervention Comments: MEDICATION RECONCILIATION COMPLETED ON PATIENT USING EXTERNAL FILL HISTORY FROM PHARMACY, LIST FROM CARDIOLOGY OFFICE, AND DISCHARGE SUMMARY FROM PREVIOUS ADMISSION. -JOY ALLEN, PHARMD
[2024-07-11 13:40] LABS: Hemoglobin 8.1 g/dL (12.2-16.2)
--- NOTE | 2024-07-11 13:45 | EXP.ANES.II ---
[facility] Anesthesia Record Part II Anesthesia Record Part II Discharge Time: 12:35 Destination: Medical Surgical Department PACU nurse assessment reviewed?: Yes Patient Condition:: Good Anesthesia Complications:: None Swallowing reflex intact?: Yes Airway Patency: Patent Cyanosis?: No Blood Pressure: 136/73 SaO2: 94 Respiratory Rate: 17 Pulse Rate: 82 Temperature: 98.2 F Mental Status: Alert & Oriented Pain level:: 0 Nausea and/or vomitting:: None Intake, IV Amount: 500 Hydration: Adequate
[2024-07-11] MEDS: IOPAMIDOL-370 (76%);100ML BOTTLE 100 ML IV (16:03)
--- NOTE | 2024-07-11 16:05 | P.HP_ITS ---
History of Present Illness *Admission Date: 07/11/24 *Reason for visit:: s/p AICD *History of present illness: Really nice patient with past medical history of poorly controlled atrial fibrillation, stage IV CKD, cardiomyopathy, hyperlipidemia, hypertension, GERD, COPD, CHF, hemolytic anemia requiring multiple blood transfusions over her lifetime. Patient presents for scheduled placement of AICD. 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 Sawyer. Reports chronic SOB, dyspnea at rest, VICK, fatigue at baseline. States her atrial fibrillation is poorly controlled on Lopressor 100 mg at home. Denies any recent fevers, chills, chest pain, abdominal pain, known sick contacts, recent travel. Patient's creatinine 1.9 today, but patient has history of renal insufficiency. [facility] Disclaimer: The information contained in this section may have been updated after the patient was seen, as this information can be updated by other users. Medical History CHF (NYHA class III, ACC/AHA stage C) Atrial fibrillation, chronic COPD exacerbation CHF exacerbation Anemia Systolic CHF Typical angina Dyspnea Rib fracture Blood transfusion reaction Autoimmune hemolytic anemia Arthritis Hernia Sinus problem Rheumatic heart disease Hypothyroidism Polyarthralgia Pulmonary edema HLD (hyperlipidemia) HTN (hypertension) CAD (coronary artery disease) DM type 2 (diabetes mellitus, type 2) DVT (deep venous thrombosis) Cardiomyopathy Arrhythmia Liver disease Thyroid disease Valvular heart disease Hypertension Hyperlipidemia GERD (gastroesophageal reflux disease) COPD (chronic obstructive pulmonary disease) Class 1 obesity CKD (chronic kidney disease) stage 3, GFR 30-59 ml/min Acute on chronic HFrEF (heart failure with reduced ejection fraction) Coronary artery disease Congestive heart failure, NYHA class III NYHA class 3 acute on chronic systolic heart failure Diabetes mellitus Hypertensive heart disease CHF (congestive heart failure) Diastolic heart failure Tricuspid valve regurgitation 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 current use of anticoagulants with INR goal of 2.5-3.5 Surgical History Mitral valve replaced History of colon resection H/O tubal ligation History of angioplasty History of renal stent History of ureteroscopy History of tubal ligation History of hernia repair History of cardiac catheterization History of mitral valve replacement with mechanical valve Family History Other Breast cancer COPD (chronic obstructive pulmonary disease) Colon cancer Family history of acute heart failure Family history of hyperlipidemia Family history of hypertension Family history of myocardial infarction Hypertension Stroke Social History Smoking Status: Former smoker tobacco type: cigarettes packs per day: 1 smoking status stop date: 01/09/2006 quit status: quit date established second hand exposure: Yes alcohol intake: never substance use type: denies use current occupational status: retired and disabled Travel in the last 8 weeks: None adopted: No caregiver/support person: No foster care: No household members: significant other housing: house lives independently: Yes marital status: life partner education level: college service: No mcc: No current occupational exposures/hazards: No sexually active: Yes how many partners: 1 are you practicing safe sex: Yes diet: diabetic well-balanced diet: about half the time caffeine: No eating out: rarely or never during the past year weight has: remained stable bhavya/alevism: [employer] special bhavya needs: No agree to transfusion: Yes helmet use: No water heater temp set < 120 deg: Yes working smoke detector in home: Yes fire extinguisher in home: Yes carbon monox detector in home: Yes firearms in home: No do you feel safe at home: Yes victim of physical abuse: No victim of emotional abuse: No victim of sexual abuse: No would you like helpful sources: No Review of Systems Constitutional Constitutional: Reports system reviewed and no additional complaints, except as documented Meds Home Medications and Allergies Home Medications ?Medication ?Instructions ?Recorded ?Confirmed ?Type aspirin 81 mg tablet,delayed 81 mg PO DAILY 12/01/17 07/11/24 History release (Adult Low Dose Aspirin) oxycodone-acetaminophen 10 mg-325 1 tab PO QID 05/23/18 07/11/24 History mg tablet (Percocet) alprazolam 0.5 mg tablet (Xanax) 0.5 mg PO TID 11/29/19 07/11/24 History levothyroxine 25 mcg tablet 25 mcg PO DAILY 06/05/21 07/11/24 History insulin glargine 100 60 units SQ DAILY 02/22/22 07/11/24 History unit-lixisenatide 33 mcg/mL subcutaneous pen febuxostat 40 mg tablet 40 mg PO DAILY 02/09/23 07/11/24 History potassium chloride 20 mEq 20 meq PO DAILY 04/15/23 07/11/24 History tablet,extended release(part/cryst) calcitriol 0.25 mcg capsule 0.25 mcg PO DAILY 10/30/23 07/11/24 History warfarin 4 mg tablet 4 mg PO SUTUWETHSA 10/31/23 07/11/24 History warfarin 4 mg tablet 2 mg PO MOFR 11/25/23 07/11/24 History duloxetine 60 mg capsule,delayed 60 mg PO HS 03/06/24 07/11/24 History release dexlansoprazole 30 mg 30 mg PO DAILY 03/29/24 07/11/24 History capsule,biphase delayed release (Dexilant) bumetanide 2 mg tablet 1 mg PO HS 06/15/24 07/11/24 History metolazone 2.5 mg tablet 2.5 mg PO DAILYP PRN edema 06/15/24 07/11/24 History spironolactone 50 mg tablet 25 mg PO HS 06/15/24 07/11/24 History insulin glargine 100 unit/mL (3 10 unit SQ HS 06/27/24 07/11/24 History mL) subcutaneous pen (Lantus Solostar U-100 Insulin) metoprolol succinate 100 mg 100 mg PO BID 06/27/24 07/11/24 History tablet,extended release 24 hr bumetanide 2 mg tablet 2 mg PO DAILY 07/11/24 07/11/24 History spironolactone 50 mg tablet 50 mg PO DAILY 07/11/24 07/11/24 History New Prescriptions to Start Prescriptions: Allergies Allergy/AdvReac Type Severity Reaction Status Date / Time codeine [CODEINE] Allergy Unknown nausea, Verified 07/07/24 13:08 swelling Corticosteroids Allergy Unknown Unknown Verified 07/07/24 13:08 (Glucocorticoids) allergy [CORTICOSTEROIDS reaction (GLUCOCORTICOIDS)] NSAIDS (Non-Steroidal Allergy Unknown Other Verified 07/07/24 13:08 Anti-Inflamma rosuvastatin [From CRESTOR] Allergy Unknown Unknown Verified 07/07/24 13:08 allergy reaction theophylline [From DAVID-DUR] Allergy Unknown Unknown Verified 07/07/24 13:08 allergy reaction Iodinated Contrast Media AdvReac Severe shuts Verified 07/07/24 13:08 [IODINATED CONTRAST- ORAL kidneys AND IV DYE] down and bleeding buprenorphine [From BUPRENEX] AdvReac Intermediate Nausea Verified 07/07/24 13:08 levofloxacin [From Levaquin] AdvReac Verified 07/07/24 13:08 lisinopril AdvReac Cough Verified 07/07/24 13:08 prednisone AdvReac Unknown Verified 07/07/24 13:08 allergy reaction sacubitril [From Entresto] AdvReac Hypotension Verified 07/07/24 13:08 valsartan [From Entresto] AdvReac Hypotension Verified 07/07/24 13:08 Exam Data for Last 24 hours Vital signs and Labs for Last 24 Hours: Temp Pulse Resp BP Pulse Ox O2 Del Method 97.9 F 83 17 109/62 L 94 L Room Air 07/11/24 13:02 07/11/24 13:05 07/11/24 13:47 07/11/24 13:05 07/11/24 13:05 07/11/24 13:05 Laboratory Results - last 24 hr 07/11/24 08:15: WBC 8.8, RBC 3.36 L, Hgb 9.0 L, Hct 29.6 L, MCV 88.4, MCH 26.9 L , MCHC 30.4 L, RDW 20.7 H, Plt Count 324, MPV 8.7, Neut % (Auto) 81.1 H, Lymph % (Auto) 7.3 L, [place] % (Auto) 6.4, Eos % (Auto) 4.6, Baso % (Auto) 0.7, Neut # (Auto) 7.1, Lymph # (Auto) 0.6 L, [place] # (Auto) 0.6, Eos # (Auto) 0.4, Baso # (Auto) 0.1, PT 30.1 H, INR 3.00 H, Sodium 130 L, Potassium 4.8, Chloride 93 L, Carbon Dioxide 29, Anion Gap 12.8, BUN 60 H, Creatinine 1.90 H, Estimated Creat Clear 42, Estimated GFR 27 L, Est GFR ( Amer) 33 L, Glucose 413 H*, Calcium 9.5 07/11/24 09:03: Blood Type O Positive 07/11/24 09:03: Blood Type Cancelled, Antibody Screen Negative 07/11/24 09:03: Antibody Screen Cancelled 07/11/24 10:01: POC Glucose 455 H* 07/11/24 12:46: Hgb 8.1 L, Hct 25.5 L I & O for Last 24 hours: Intake & Output 07/08/24 07/09/24 07/10/24 07/11/24 23:59 23:59 23:59 23:59 Intake Total 1641 / 1641 Balance 1641 / 1641 Weight 85.502 kg Constitutional Constitutional: no acute distress *Routine HEENT Exam Head: Present normocephalic Eye: Present EOMI ENT: Present mucous membranes moist *Routine Neck Exam Neck: Present supple and full ROM Routine Chest/Breast/Axilla Exam Chest wall: Present tenderness Comments: Tender to palpation left upper sternal pectoral region and site of AICD placement. No signs of infection at AICD pacer pocket. *Routine Respiratory Exam Respiratory: Present CTA bilaterally and normal respiratory effort *Routine Cardiovascular Exam Cardiovascular: Present RRR, Normal S1 and Normal S2 *Routine Abdominal Exam Abdominal: Present soft and normoactive bowel sounds *Routine Rectal Exam Rectal:: deferred *Routine Genitalia Exam Genitalia:: deferred *Routine Extremities Exam Extremities: Present full ROM and normal capillary refill *Routine Skin Exam Skin: Present intact *Routine Neurological Exam Neurological: Present alert, oriented X3 and CN II-XII intact Assessment and Plan *Assessment and plan (1) Iron deficiency anemia: Status: Acute Category: Medical Code(s): D50.9 - Iron deficiency anemia, unspecified (2) Chronic renal insufficiency, stage III (moderate): Status: Acute Category: Medical Code(s): N18.30 - Chronic kidney disease, stage 3 unspecified (3) AICD (automatic cardioverter/defibrillator) present: Status: Acute Category: Surgical Code(s): Z95.810 - Presence of automatic (implantable) cardiac defibrillator (4) TRISTAN (acute kidney injury): Status: Acute Category: Medical Code(s): N17.9 - Acute kidney failure, unspecified Plan s/p AICD placement: - admit to evaluate after procedure. Telemetry, cardiology c/s. PRN pain meds. TRISTAN superimposed on stage IV CKD: ? Start 100 cc/h normal saline overnight, and watch I's and O's closely during hospitalization. CHF: cont home mgmt DM: SSI, AC/HS accuchecks Pulm HTN: cont home mgmt CKD: cont home mgmt, cautious fluid management throughout hospitalization Atrial Fib: cont home mgmt GERD: cont home mgmt PPX lovenox SQ FEN: cardiac Code: Full
--- NOTE | 2024-07-11 16:41 | EXP.EVENT.NO ---
Patient reevaluated after cholecystectomy surgery today. Complaining about some pain. Wrote for as needed morphine. Also will advance patient to clear liquid diet. Patient and patient's at bedside during afternoon evaluation by Dr. Kaplan after procedure. Dr. Kaplan also evaluated patient this a.m. during attending rounds and during IDT rounds with staff.
[2024-07-11] MEDS: OXYCODONE 5MG W/APAP 325MG TABLET 2 EACH PO ×2 (17:06→22:15)
[2024-07-11] MEDS: 0.9 % SODIUM CHLORIDE 1000ML 1,000 ML 100 ML IV (17:07)
[2024-07-11] MEDS: humaLOG 100 UNITS/ML 10ML VIAL (SSI) SQ ×2 (17:18→20:23)
[2024-07-11 17:20] LABS: POC Glucose,Bedside 274 (70-110)
--- NOTE | 2024-07-11 19:45 | PC.NURSE ---
pt new admit from cardiac cath technician post pace maker placement. No bleeding from the site and pain reportedx1
[2024-07-11 20:26] LABS: POC Glucose,Bedside 351 (70-110)
[2024-07-12] VITALS (26 sets, daily range): BP systolic 107–140; BP diastolic 56–82; PULSE 18–100; RESP 16–20; TEMP 36.5–37.1; O2SAT 93–98; BMI 32.8
[2024-07-12] MEDS: 0.9 % SODIUM CHLORIDE 1000ML 1,000 ML 100 ML IV (03:30)
[2024-07-12 06:21] LABS: POC Glucose,Bedside 292 (70-110)
[2024-07-12] MEDS: humaLOG 100 UNITS/ML 10ML VIAL (SSI) SQ ×4 (06:24→20:59)
[2024-07-12] MEDS: OXYCODONE 5MG W/APAP 325MG TABLET 2 EACH PO ×2 (07:37→20:55)
--- NOTE | 2024-07-12 09:50 | EXP.CARD.PN ---
Subjective Subjective Date: 07/12/24 Time: 09:00 Principal diagnosis: s/p AICD placement Interval history: This is a 59-year-old female who was admitted to the hospital following an AICD placement. She has a past medical history of chronic atrial fibrillation, chronic kidney disease, cardiomyopathy, hypertension, hyperlipidemia, HFrEF, anemia. The patient was scheduled to undergo AICD placement with yesterday. During AICD placement the patient's coronary sinus was difficult to find so contrast had to be used. She has known chronic kidney disease so she was kept overnight for gentle IV hydration and to recheck her renal function this morning. The patient was not in atrial fibrillation at the time of AICD as presumed, she had no atrial activity, and was in a junctional escat rhythm. Once the atrial lead was placed, the atrium depolarized and that would not have occurred if she were in atrial fibrillation. The patient also went into third degree heart block. She will v-pace 100% of the time, so her device was upgraded to a AUTOMATION MACHINE OPERATOR-D at the time of the procedure because her pacing 100% of the time would cause worsening of her cardiomyopathy. Today she is complaining of some soreness and tenderness at the AICD insertion site. There are no signs of infection noted. She does have a little tenderness with palpation to the area. She denies any chest pain or pressure. She has chronic shortness of breath which is currently unchanged for her. She denies any lower extremity edema. She denies any fever, chills, nausea, vomiting, diarrhea, PND or orthopnea. Exam Data for Last 24 hours Vital signs and Labs for Last 24 Hours: Temp Pulse Resp BP Pulse Ox O2 Del Method O2 Flow Rate 98.6 F 78 16 128/76 96 Room Air 2 07/12/24 08:00 07/12/24 08:00 07/12/24 08:00 07/12/24 08:00 07/12/24 08:00 07/12/24 08:13 07/12/24 08:00 Laboratory Results - last 24 hr 07/11/24 09:03: Blood Type O Positive 07/11/24 09:03: Blood Type Cancelled, Antibody Screen Negative 07/11/24 09:03: Antibody Screen Cancelled 07/11/24 10:01: POC Glucose 455 H* 07/11/24 12:46: Hgb 8.1 L, Hct 25.5 L 07/11/24 17:13: POC Glucose 274 H 07/11/24 20:20: POC Glucose 351 H* 07/12/24 06:11: POC Glucose 292 H I & O for Last 24 hours: Intake & Output 07/09/24 07/10/24 07/11/24 07/12/24 23:59 23:59 23:59 23:59 Intake Total 2240 Output Total 0 / 0 0 / 0 Balance 2240 147 147 Weight 188 lb 8 oz 192 lb 6.4 oz Constitutional Constitutional: no acute distress and obese *Routine HEENT Exam Head: Present normocephalic and atraumatic ENT: Present mucous membranes moist *Routine Neck Exam Neck: Present supple, full ROM and normal carotid upstroke; Absent JVD, carotid bruit or lymphadenopathy *Routine Respiratory Exam Respiratory: Present CTA bilaterally, normal respiratory effort, able to speak in complete sentences and symmetric chest movement *Routine Cardiovascular Exam Cardiovascular: Present Normal S1, Normal S2, murmur and click; Absent gallop *Routine Abdominal Exam Abdominal: Present soft and normoactive bowel sounds; Absent tenderness, distended or organomegaly *Routine Extremities Exam Extremities: Present full ROM, pulses intact and normal capillary refill; Absent cyanosis, clubbing or edema *Routine Skin Exam Skin: Present intact and warm; Absent erythema *Routine Neurological Exam Neurological: Present alert, oriented X3 and CN II-XII intact; Absent sensory deficit or motor deficit Routine Psychiatric Exam Psychiatric: Present normal affect Progress Note: A&P Assessment and plan (1) Presence of biventricular AICD: Status: Acute (2) HFrEF (heart failure with reduced ejection fraction): Status: Acute (3) Cardiomyopathy: Status: Acute (4) Iron deficiency anemia: Status: Acute (5) Chronic renal insufficiency, stage III (moderate): Status: Acute (6) GERD (gastroesophageal reflux disease): Status: Acute (7) COPD (chronic obstructive pulmonary disease): Status: Acute (8) HTN (hypertension): Status: Acute (9) Hyperlipidemia: Status: Acute (10) Dyspnea: Status: Acute (11) Diabetes mellitus: Status: Acute (12) Current use of chcf anticoagulation: Status: Acute (13) History of mitral valve replacement with mechanical valve: Status: Acute (14) Junctional escape rhythm: Status: Acute (15) Third degree heart block: Status: Acute Assessment and Plan Assessment and Plan for All Diagnoses:: Plan: 1. the patient was admitted to the hospital following AICD placement because contrast was used to find the coronary sinus and the patient had no chronic kidney disease and wanted to hydrate her with fluid overnight and recheck her renal function this morning. She did tolerate AICD placement well. The site is healing well. No signs of infection. 2. The patient is having some pain and tenderness at the AICD insertion site. She has chronic pain medication at home that she states that she will use as needed for the pain. 3. HFrEF is present, status post AICD placement. Continue Bumex, metolazone, metoprolol, spironolactone for the HFrEF. 4. The patient is on long-term anticoagulation with Coumadin due to her underlying atrial fibrillation. 5. Her blood pressure is well-controlled. 6. Her LDL goal is less than 100. 7. The patient does have chronic anemia. Will recheck her hemoglobin and hematocrit this morning. 8. Will also recheck her renal function this morning. 9. The patient can be discharged home today from a cardiac standpoint as long as her blood work this morning is stable. The results are still currently pending. 10. Once stable for discharge she can be discharged on the following cardiac medications: Aspirin 81 mg daily, Bumex 2 mg during the day Bumex 1 mg in the evening, total is on 2.5 mg daily as needed, Toprol-XL 100 mg p.o. twice daily, spironolactone 50 mg during the day and spironolactone 25 mg in the evening, warfarin 2 mg on Mondays and Fridays and warfarin 4 mg on Wednesday and Wednesday. 11. The patient will need to follow-up in cardiology clinic in 1 week for staple removal. Thank you for the opportunity to help participate in the care of this patient. All recommendations and orders are per Dr. Caldwell.
[2024-07-12 09:53] LABS: Basophils % 0.4 % (0.1-2.0); Eosinophils # 0.5 K/mm3 (0.0-0.4); Eosinophils % 6.1 % (0.1-12.0); Hematocrit 24.5 % (37.0-47.0); Hemoglobin 7.3 g/dL (12.2-16.2); Lymphocytes # 0.4 K/mm3 (0.7-4.5); Lymphocytes % 5.4 % (10-50); Mean Corpuscular HGB Conc 29.8 g/dL (31.8-35.4); Mean Corpuscular Hemoglobin 26.4 pg (27.0-31.2); Mean Corpuscular Volume 88.6 fl (81-99); Mean Platelet Volume 8.6 fl (7.4-10.4); Monocytes # 0.5 K/mm3 (0.1-1.0); Monocytes % 6.4 % (1.7-9.3); Neutrophils # 6.3 K/mm3 (1.8-7.8); Neutrophils % 81.7 % (37.0-80.0); Platelet Count 226 K/mm3 (142-424); Red Blood Count 2.76 M/mm3 (4.20-5.40); Red Cell Distribution Width 20.9 % (11.5-17.5); White Blood Count 7.7 K/mm3 (4.8-10.8)
[2024-07-12 09:58] LABS: INR 2.05 (0.9-1.1); Prothrombin Time 21.4 seconds (10.1-12.5)
[2024-07-12 10:02] LABS: Chloride 99 mmol/L (98-107); Cholesterol 141 mg/dl (140-200); Potassium 4.4 mmoL/L (3.5-5.1); Sodium 133 mmol/L (136-145)
[2024-07-12 10:03] LABS: Chol/HDL Ratio 5.4 (1-3.5); HDL Cholesterol 26 mg/dl (40-60)
[2024-07-12 10:05] LABS: Anion Gap 9.4 mEq/L (5-15); Blood Urea Nitrogen 50 mg/dl (7-17); Calcium 8.7 mg/dl (8.4-10.2); Carbon Dioxide 29 mmol/L (22.0-30.0); Creatinine Clearance Estimated 54 mL/min (50-200); Estimated Glomerular Filt Rate 35 ml/min (>60); GFR (African American) 43 ML/MIN (>60); Glucose 330 mg/dl (74-100)
[2024-07-12 10:26] LABS: Direct LDL Cholesterol < 30.00 mg/dL (100-129); Triglycerides 416 mg/dl (30-150)
[2024-07-12 10:28] LABS: Magnesium 2.3 mg/dl (1.6-2.3)
[2024-07-12 11:47] LABS: POC Glucose,Bedside 354 (70-110)
[2024-07-12] MEDS: ACETAMINOPHEN 325MG TAB 650 MG PO (12:10)
[2024-07-12] MEDS: diphenhydrAMINE 50MG/ML VIAL 25 MG IV (12:10)
--- NOTE | 2024-07-12 12:55 | P.PN_ITS ---
Subjective *Date: 07/12/24 *Time: 13:08 Interval history: Patient's hemoglobin fell to 7.3 today. Patient denies chest pain, shortness of breath or other signs of symptomatic anemia Exam Data for Last 24 hours Vital signs and Labs for Last 24 Hours: Temp Pulse Resp BP Pulse Ox O2 Del Method O2 Flow Rate 98.2 F 82 17 123/74 95 Room Air 2 07/12/24 11:50 07/12/24 11:50 07/12/24 11:50 07/12/24 11:50 07/12/24 11:50 07/12/24 11:50 07/12/24 08:00 Laboratory Results - last 24 hr 07/11/24 09:03: Blood Type O Positive, Antibody Screen Negative, Crossmatch (AHG) See Detail 07/11/24 12:46: Hgb 8.1 L, Hct 25.5 L 07/11/24 17:13: POC Glucose 274 H 07/11/24 20:20: POC Glucose 351 H* 07/12/24 06:11: POC Glucose 292 H 07/12/24 09:35: WBC 7.7, RBC 2.76 L, Hgb 7.3 L, Hct 24.5 L, MCV 88.6, MCH 26.4 L , MCHC 29.8 L, RDW 20.9 H, Plt Count 226 D, MPV 8.6, Neut % (Auto) 81.7 H, Lymph % (Auto) 5.4 L, [place] % (Auto) 6.4, Eos % (Auto) 6.1, Baso % (Auto) 0.4, Neut # (Auto) 6.3, Lymph # (Auto) 0.4 L, [place] # (Auto) 0.5, Eos # (Auto) 0.5 H, Baso # (Auto) 0.0, PT 21.4 H, INR 2.05 H, Sodium 133 L, Potassium 4.4, Chloride 99, Carbon Dioxide 29, Anion Gap 9.4, BUN 50 H, Creatinine 1.50 H D, Estimated Creat Clear 54, Estimated GFR 35 L, Est GFR ( Amer) 43 L D, Glucose 330 H , Calcium 8.7, Magnesium 2.3, Triglycerides 416 H, Cholesterol 141, LDL Cholesterol Direct < 30.00 L, HDL Cholesterol 26 L, Cholesterol/HDL Ratio 5.4 H 07/12/24 11:31: POC Glucose 354 H* I & O for Last 24 hours: Intake & Output 07/09/24 07/10/24 07/11/24 07/12/24 23:59 23:59 23:59 23:59 Intake Total 2240 / 2240 1471 / 1471 Output Total 0 / 0 0 / 0 Balance 2240 1471 / 1471 Weight 85.502 kg 87.271 kg *Routine HEENT Exam Head: Present normocephalic Eye: Present EOMI and normal accommodation ENT: Present mucous membranes moist *Routine Neck Exam Neck: Present supple and full ROM *Routine Respiratory Exam Respiratory: Present CTA bilaterally and normal respiratory effort *Routine Cardiovascular Exam Cardiovascular: Present RRR, Normal S1 and Normal S2 *Routine Abdominal Exam Abdominal: Present soft and normoactive bowel sounds *Routine Extremities Exam Extremities: Present normal capillary refill *Routine Skin Exam Skin: Present intact and dry *Routine Neurological Exam Neurological: Present alert and oriented X3 Assessment and Plan *Assessment and plan (1) Presence of biventricular AICD: Status: Acute Category: Surgical Code(s): Z95.810 - Presence of automatic (implantable) cardiac defibrillator (2) Chronic renal insufficiency, stage III (moderate): Status: Acute Category: Medical Code(s): N18.30 - Chronic kidney disease, stage 3 unspecified (3) CHF (NYHA class III, ACC/AHA stage C): Status: Acute Category: Medical Code(s): I50.9 - Heart failure, unspecified (4) Diabetes mellitus: Status: Acute Qualifiers: Diabetes mellitus complication status: without complication Diabetes mellitus type: type 1 Qualified Code(s): E10.9 - Type 1 diabetes mellitus [facility] complications Category: Medical Code(s): E11.9 - Type 2 diabetes mellitus without complications (5) Anemia: Status: Acute Qualifiers: Anemia type: unspecified type Qualified Code(s): D64.9 - Anemia, unspecified Category: Medical Code(s): D64.9 - Anemia, unspecified Plan 59-year-old female with past medical history of hemolytic anemia, atrial fibrillation, heart failure reduced ejection fraction, chronic renal insufficiency, iron deficiency anemia. Patient presented to hospital for cardioversion and AICD placement. Patient noted to suffer from anemia 07/12/2024 on routine morning lab draws. Recurrent anemia in hemolytic anemia patient: ? 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 Admits to over 200 blood transfusions in her lifetime. States she has required blood transfusions weekly occasionally. Patient's hemoglobin has fallen over past 3 days. While this is partially dilutional, will transfuse patient 2 units packed RBCs and discussed issue with Dr. Pro before making further disposition plans. s/p AICD placement: - admit to evaluate after procedure. Telemetry, cardiology c/s. PRN pain meds. TIRSTAN superimposed on stage IV CKD: ? Start 100 cc/h normal saline overnight, and watch I's and O's closely during hospitalization. CHF: cont home mgmt DM: SSI, AC/HS accuchecks Pulm HTN: cont home mgmt CKD: cont home mgmt, cautious fluid management throughout hospitalization Atrial Fib: cont home mgmt GERD: cont home mgmt PPX lovenox SQ FEN: cardiac Code: Full Disposition: ?07/12 patient discharge canceled due to hemolytic anemia and hemoglobin 7.3 today. Will transfuse patient 2 units packed RBCs, and reevaluate hemoglobin level.
[2024-07-12] MEDS: 0.9 % SODIUM CHLORIDE 250 ML 25 ML IV ×2 (13:20→16:00)
[2024-07-12] MEDS: WARFARIN 2MG TABLET 4 MG PO (14:14)
[2024-07-12 17:40] LABS: POC Glucose,Bedside 280 (70-110)
[2024-07-12 20:05] LABS: Hematocrit 32.2 % (37.0-47.0)
[2024-07-12 20:06] LABS: Hemoglobin 9.8 g/dL (12.2-16.2)
[2024-07-12 21:15] LABS: POC Glucose,Bedside 395 (70-110)
[2024-07-13] VITALS: BP 123/66; PULSE 100; PULSE 85; RESP 16; TEMP 36.9; O2SAT 96
[2024-07-13 04:00] VITALS: BP 110/56; PULSE 86; PULSE 98; RESP 16; TEMP 36.8; O2SAT 97; BMI 34.0
[2024-07-13] MEDS: OXYCODONE 5MG W/APAP 325MG TABLET 1 EACH PO ×2 (04:29→15:19)
[2024-07-13 05:35] LABS: POC Glucose,Bedside 289 (70-110)
--- NOTE | 2024-07-13 05:39 | PC.NURSE ---
Patient alert and oriented x4 this shift. Tolerating room air well when awake and 2L NC while sleeping with o2 stats >90%. Patient medicated per MAR for pain this shift. Pacemaker dressing site C/D/I. No complaints of chest pain or shortness of breath. Patient has done well ambulating to/from restroom. Call light within reach.
[2024-07-13] MEDS: humaLOG 100 UNITS/ML 10ML VIAL (SSI) SQ ×2 (05:50→12:59)
--- NOTE | 2024-07-13 06:03 | ECG_ITS ---
APPROVED REPORT Exam: Resting ECG HR:114 bpm ECG Measurements Heart Rate 114 AXES QRSd 106 QRS 96 QT 336 T 53 QTc 404 Conclusion ATRIAL FIBRILLATION WITH RAPID VENTRICULAR RESPONSE BORDERLINE RIGHT AXIS DEVIATION [QRS AXIS > 90] INCOMPLETE RIGHT BUNDLE BRANCH BLOCK [90+ ms QRS DURATION, TERMINAL R IN V1/V2, 40+ ms S IN I/aVL/V4/V5/V6] ABNORMAL RHYTHM ECG UNCONFIRMED REPORT Electronically signed by : Reji Castro MD 07/13/2024 08:15:30
[2024-07-13] MEDS: ALPRAZolam 0.5MG TABLET 0.5 MG PO ×2 (06:32→13:23)
[2024-07-13] MEDS: METOPROLOL TARTRATE 5MG/5ML VIAL 2.5 MG IV ×2 (06:32)
[2024-07-13] MEDS: MAGNESIUM SULFATE IN WATER 2 GM/50 ML PIGGYBACK IV (06:32)
--- NOTE | 2024-07-13 06:51 | PC.NURSE ---
0600 - Patient complaining of heart palpitations and HR fluctuating from 100-170. Hospitalist made aware. 0603 - EKG obtained. 0610 - Alysha John APRN at bedside 0615 - Verbal orders for Metoprolol, Magnesium and Alprazolam. Meds administered and patient states she is feeling better with HR 90-110.
[2024-07-13 08:00] VITALS: BP 135/80; PULSE 130; PULSE 74; RESP 18; TEMP 36.6; O2SAT 10
--- NOTE | 2024-07-13 08:17 | P.DS_ITS ---
General Admission date:: 07/11/24 Discharge date: 07/13/24 HPI HPI HPI: Really nice patient with past medical history of poorly controlled atrial fibrillation, stage IV CKD, cardiomyopathy, hyperlipidemia, hypertension, GERD, COPD, CHF, hemolytic anemia requiring multiple blood transfusions over her lifetime. Patient presents for scheduled placement of AICD. Patient underwent cardioversion for atrial fibrillation ambulation before placement of AICD and cardiac Industrial Therapist by Dr. Sawyer. Reports chronic SOB, dyspnea at rest, VICK, fatigue at baseline. States her atrial fibrillation is poorly controlled on Lopressor 100 mg at home. Denies any recent fevers, chills, chest pain, abdominal pain, known sick contacts, recent travel. Patient's creatinine 1.9 today, but patient has history of renal insufficiency. Hospital Course Hospital Course Hospital Course: Patient admitted to hospital for weakness and scheduled AICD placement. Patient suffers from A-fib with RVR, and received cardioversion prior to AICD placement. Patient admitted for IV hydration after receiving contrast dye during AICD destiney cement procedure. Patient's creatinine trended downward throughout hospitalization. Patient unfortunately suffered from hemoglobin drop during hospitalization, and required 2 units packed RBCs. Patient's hemoglobin remained stable after RBC transfusion. Patient's sales clerk supervisor/oncologist Dr. Pro phoned by Dr. Kaplan, and agreed with patient's inpatient hospitalization management. Patient ultimately discharged home 07/13/2024 with instructions to follow-up with Dr. Sawyer, Dr. Pro, and her primary care physician after hospital discharge. Special note, patient suffered from episode of RVR overnight 07/12/2024. Patient given IV metoprolol, then restarted on her home medications. Patient then remained rate controlled throughout remainder of hospitalization. Exam Data for Last 24 hours Vital signs and Labs for Last 24 Hours: Temp Pulse Resp BP Pulse Ox O2 Del Method O2 Flow Rate 98.3 F 86 16 110/56 L 97 Nasal Cannula 2 07/13/24 04:00 07/13/24 04:00 07/13/24 04:00 07/13/24 04:00 07/13/24 04:00 07/13/24 06:49 07/13/24 06:49 Laboratory Results - last 24 hr 07/11/24 09:03: Blood Type O Positive, Antibody Screen Negative, Crossmatch (AHG) See Detail 07/12/24 09:35: WBC 7.7, RBC 2.76 L, Hgb 7.3 L, Hct 24.5 L, MCV 88.6, MCH 26.4 L , MCHC 29.8 L, RDW 20.9 H, Plt Count 226 D, MPV 8.6, Neut % (Auto) 81.7 H, Lymph % (Auto) 5.4 L, [place] % (Auto) 6.4, Eos % (Auto) 6.1, Baso % (Auto) 0.4, Neut # (Auto) 6.3, Lymph # (Auto) 0.4 L, [place] # (Auto) 0.5, Eos # (Auto) 0.5 H, Baso # (Auto) 0.0, PT 21.4 H, INR 2.05 H, Sodium 133 L, Potassium 4.4, Chloride 99, Carbon Dioxide 29, Anion Gap 9.4, BUN 50 H, Creatinine 1.50 H D, Estimated Creat Clear 54, Estimated GFR 35 L, Est GFR ( Amer) 43 L D, Glucose 330 H , Calcium 8.7, Magnesium 2.3, Triglycerides 416 H, Cholesterol 141, LDL Cholesterol Direct < 30.00 L, HDL Cholesterol 26 L, Cholesterol/HDL Ratio 5.4 H 07/12/24 11:31: POC Glucose 354 H* 07/12/24 17:27: POC Glucose 280 H 07/12/24 19:50: Hgb 9.8 L D, Hct 32.2 L 07/12/24 20:54: POC Glucose 395 H* 07/13/24 05:23: POC Glucose 289 H I & O for Last 24 hours: Intake & Output 07/10/24 07/11/24 07/12/24 07/13/24 23:59 23:59 23:59 23:59 Intake Total 2240 Output Total 0 / 0 0 / 0 Balance 2240 Weight 85.502 kg 87.271 kg 90.446 kg Constitutional Constitutional: no acute distress *Routine HEENT Exam Head: Present normocephalic Eye: Present EOMI ENT: Present mucous membranes moist *Routine Neck Exam Neck: Present supple and full ROM *Routine Respiratory Exam Respiratory: Present CTA bilaterally *Routine Cardiovascular Exam Cardiovascular: Present RRR, Normal S1 and Normal S2 *Routine Abdominal Exam Abdominal: Present soft and normoactive bowel sounds *Routine Extremities Exam Extremities: Present full ROM and pulses intact *Routine Skin Exam Skin: Present intact and dry *Routine Neurological Exam Neurological: Present alert and oriented X3 Results Data Completed and Pending Labs on day of discharge: Labs from last 24 hours 07/13/24 07/12/24 07/12/24 05:23 20:54 19:50 WBC RBC Hgb 9.8 L D Hct 32.2 L MCV MCH MCHC RDW Plt Count MPV Neut % (Auto) Lymph % (Auto) [place] % (Auto) Eos % (Auto) Baso % (Auto) Neut # (Auto) Lymph # (Auto) [place] # (Auto) Eos # (Auto) Baso # (Auto) PT INR Sodium Potassium Chloride Carbon Dioxide Anion Gap BUN Creatinine Estimated Creat Clear Estimated GFR Est GFR ( Amer) Glucose POC Glucose 289 H 395 H* Calcium Magnesium Triglycerides Cholesterol LDL Cholesterol Direct HDL Cholesterol Cholesterol/HDL Ratio Blood Type Antibody Screen Crossmatch ([facility]) 07/12/24 07/12/24 07/12/24 17:27 11:31 09:35 WBC 7.7 RBC 2.76 L Hgb 7.3 L Hct 24.5 L MCV 88.6 MCH 26.4 L MCHC 29.8 L RDW 20.9 H Plt Count 226 D MPV 8.6 Neut % (Auto) 81.7 H Lymph % (Auto) 5.4 L [place] % (Auto) 6.4 Eos % (Auto) 6.1 Baso % (Auto) 0.4 Neut # (Auto) 6.3 Lymph # (Auto) 0.4 L [place] # (Auto) 0.5 Eos # (Auto) 0.5 H Baso # (Auto) 0.0 PT 21.4 H INR 2.05 H Sodium 133 L Potassium 4.4 Chloride 99 Carbon Dioxide 29 Anion Gap 9.4 BUN 50 H Creatinine 1.50 H D Estimated Creat Clear 54 Estimated GFR 35 L Est GFR ( Amer) 43 L D Glucose 330 H POC Glucose 280 H 354 H* Calcium 8.7 Magnesium 2.3 Triglycerides 416 H Cholesterol 141 LDL Cholesterol Direct < 30.00 L HDL Cholesterol 26 L Cholesterol/HDL Ratio 5.4 H Blood Type Antibody Screen Crossmatch ([facility]) 07/11/24 09:03 WBC RBC Hgb Hct MCV MCH MCHC RDW Plt Count MPV Neut % (Auto) Lymph % (Auto) [place] % (Auto) Eos % (Auto) Baso % (Auto) Neut # (Auto) Lymph # (Auto) [place] # (Auto) Eos # (Auto) Baso # (Auto) PT INR Sodium Potassium Chloride Carbon Dioxide Anion Gap BUN Creatinine Estimated Creat Clear Estimated GFR Est GFR ( Amer) Glucose POC Glucose Calcium Magnesium Triglycerides Cholesterol LDL Cholesterol Direct HDL Cholesterol Cholesterol/HDL Ratio Blood Type O Positive Antibody Screen Negative Crossmatch (AHG) See Detail Impressions Impressions: 07/11/2024 chest x-ray: Date of Service: 07/11/24 Procedure(s): XR chest portable Accession Number(s): [id number] cc: Reji Castro MD; Urbano Gracia MD~ FINAL REPORT CLINICAL HISTORY: new pacemaker/AID placement COMPARISON: 06/28/2024 FINDINGS: The heart size is enlarged, with moderate to severe cardiomegaly. There has been prior median sternotomy. A right port tip is present in the superior vena cava as seen on the prior exam. There is a new left subclavian pacemaker noted since the prior exam. There is no focal infiltrate or edema. There is no pleural effusion. There is no pneumothorax. IMPRESSION: A new left subclavian pacemaker is noted. No evidence of pneumothorax is seen. DS: Diagnosis Discharge Diagnosis (1) Presence of biventricular AICD: Status: Acute Code(s): Z95.810 - Presence of automatic (implantable) cardiac defibrillator (2) Chronic renal insufficiency, stage III (moderate): Status: Acute Code(s): N18.30 - Chronic kidney disease, stage 3 unspecified (3) CHF (NYHA class III, ACC/AHA stage C): Status: Acute Code(s): I50.9 - Heart failure, unspecified (4) Diabetes mellitus: Status: Acute Code(s): E11.9 - Type 2 diabetes mellitus without complications Qualifiers: Diabetes mellitus complication status: without complication Diabetes mellitus type: type 1 Qualified Code(s): E10.9 - Type 1 diabetes mellitus without complications (5) Anemia: Status: Acute Code(s): D64.9 - Anemia, unspecified Qualifiers: Anemia type: unspecified type Qualified Code(s): D64.9 - Anemia, unspecified Meds Home Medications and Allergies Home Medications ?Medication ?Instructions ?Recorded ?Confirmed ?Type aspirin 81 mg tablet,delayed 81 mg PO DAILY 12/01/17 07/11/24 History release (Adult Low Dose Aspirin) oxycodone-acetaminophen 10 mg-325 1 tab PO QID 05/23/18 07/11/24 History mg tablet (Percocet) alprazolam 0.5 mg tablet (Xanax) 0.5 mg PO TID 11/29/19 07/11/24 History levothyroxine 25 mcg tablet 25 mcg PO DAILY 06/05/21 07/11/24 History insulin glargine 100 60 units SQ DAILY 02/22/22 07/11/24 History unit-lixisenatide 33 mcg/mL subcutaneous pen febuxostat 40 mg tablet 40 mg PO DAILY 02/09/23 07/11/24 History potassium chloride 20 mEq 20 meq PO DAILY 04/15/23 07/11/24 History tablet,extended release(part/cryst) calcitriol 0.25 mcg capsule 0.25 mcg PO DAILY 10/30/23 07/11/24 History warfarin 4 mg tablet 4 mg PO SUTUWETHSA 10/31/23 07/11/24 History warfarin 4 mg tablet 2 mg PO MOFR 11/25/23 07/11/24 History duloxetine 60 mg capsule,delayed 60 mg PO HS 03/06/24 07/11/24 History release dexlansoprazole 30 mg 30 mg PO DAILY 03/29/24 07/11/24 History capsule,biphase delayed release (Dexilant) bumetanide 2 mg tablet 1 mg PO HS 06/15/24 07/11/24 History metolazone 2.5 mg tablet 2.5 mg PO DAILYP PRN edema 06/15/24 07/11/24 History spironolactone 50 mg tablet 25 mg PO HS 06/15/24 07/11/24 History insulin glargine 100 unit/mL (3 10 unit SQ HS 06/27/24 07/11/24 History mL) subcutaneous pen (Lantus Solostar U-100 Insulin) metoprolol succinate 100 mg 100 mg PO BID 06/27/24 07/11/24 History tablet,extended release 24 hr bumetanide 2 mg tablet 2 mg PO DAILY 07/11/24 07/11/24 History spironolactone 50 mg tablet 50 mg PO DAILY 07/11/24 07/11/24 History New Prescriptions to Start Prescriptions: Allergies Allergy/AdvReac Type Severity Reaction Status Date / Time codeine [CODEINE] Allergy Unknown nausea, Verified 07/07/24 13:08 swelling Corticosteroids Allergy Unknown Unknown Verified 07/07/24 13:08 (Glucocorticoids) allergy [CORTICOSTEROIDS reaction (GLUCOCORTICOIDS)] NSAIDS (Non-Steroidal Allergy Unknown Other Verified 07/07/24 13:08 Anti-Inflamma rosuvastatin [From CRESTOR] Allergy Unknown Unknown Verified 07/07/24 13:08 allergy reaction theophylline [From DAVID-DUR] Allergy Unknown Unknown Verified 07/07/24 13:08 allergy reaction Iodinated Contrast Media AdvReac Severe shuts Verified 07/07/24 13:08 [IODINATED CONTRAST- ORAL kidneys AND IV DYE] down and bleeding buprenorphine [From BUPRENEX] AdvReac Intermediate Nausea Verified 07/07/24 13:08 levofloxacin [From Levaquin] AdvReac Verified 07/07/24 13:08 lisinopril AdvReac Cough Verified 07/07/24 13:08 prednisone AdvReac Unknown Verified 07/07/24 13:08 allergy reaction sacubitril [From Entresto] AdvReac Hypotension Verified 07/07/24 13:08 valsartan [From Entresto] AdvReac Hypotension Verified 07/07/24 13:08 Discharge Plan Disposition Patient Disposition: Home, Self-Care Condition: Fair Follow up Plan Follow up with: Elijah Pro MD [Staff Physician] - 1 week Tod Sawyer MD [Staff Physician] - 07/27/24 2:00 pm Reji Castro MD [Primary Care Provider] - 2 weeks Prescriptions/Medication Reconciliation: No Action aspirin [Adult Low Dose Aspirin] 81 mg tablet,delayed release (DR/EC) 81 mg PO DAILY oxycodone-acetaminophen [Percocet] 10-325 mg tablet 1 tab PO QID alprazolam [Xanax] 0.5 mg tablet 0.5 mg PO TID potassium chloride 20 mEq tablet,ER particles/crystals 20 meq PO DAILY duloxetine 60 mg capsule,delayed release(DR/EC) 60 mg PO HS Patient Comments: TAKE (1) CAPSULE BY MOUTH ONCE A DAY. metolazone 2.5 mg tablet 2.5 mg PO DAILYP PRN (Reason: edema) bumetanide 2 mg tablet 1 mg PO HS Rx Instructions: 1 tablet in the am and 0.5 tablet in the pm spironolactone 50 mg tablet 25 mg PO HS levothyroxine 25 MCG tablet 25 mcg PO DAILY calcitriol 0.25 mcg Capsule 0.25 mcg PO DAILY warfarin 4 mg tablet 4 mg PO SUTUWETHSA warfarin 4 mg tablet 2 mg PO MOFR insulin glargine-lixisenatide 3 ML insulin pen 60 units SQ DAILY febuxostat 40 mg tablet 40 mg PO DAILY dexlansoprazole [Dexilant] 30 mg capsule,biphase delayed releas 30 mg PO DAILY Patient Comments: TAKE (1) CAPSULE BY MOUTH ONCE A DAY. bumetanide 2 mg tablet 2 mg PO DAILY spironolactone 50 mg tablet 50 mg PO DAILY insulin glargine [Lantus Solostar U-100 Insulin] 100 unit/mL (3 mL) insulin pen 10 unit SQ HS Patient Comments: INJECT 10 UNITS SUB-Q AT BEDTIME. EACH PEN EXPIRES 28 DAYS AFTER FIRST USE. metoprolol succinate 100 mg tablet extended release 24 hr 100 mg PO BID Problem Reconciliation Problems Reviewed?: Yes Patient Discharge Instructions ACTIVITY: Continue current activity DIET: continue same diet Patient Instructions: DI for Automatic Cardioverter/Defibrillator Implantation, DI for Surgical Site Infection, Coumadin Vitamin K/ Diet Print Language: Japanese Providers Primary Care Provider: Reji Castro Admit Provider: Issac Kaplan Attending Provider: Issac Kaplan
[2024-07-13] MEDS: METOPROLOL TARTRATE 5MG/5ML VIAL 5 MG IV ×2 (08:30→13:23)
[2024-07-13 09:27] LABS: Basophils % 0.4 % (0.1-2.0); Eosinophils # 0.4 K/mm3 (0.0-0.4); Eosinophils % 3.5 % (0.1-12.0); Hematocrit 30.8 % (37.0-47.0); Hemoglobin 9.3 g/dL (12.2-16.2); Lymphocytes # 0.3 K/mm3 (0.7-4.5); Lymphocytes % 3.2 % (10-50); Mean Corpuscular HGB Conc 30.3 g/dL (31.8-35.4); Mean Corpuscular Hemoglobin 26.8 pg (27.0-31.2); Mean Corpuscular Volume 88.5 fl (81-99); Mean Platelet Volume 8.6 fl (7.4-10.4); Monocytes # 0.6 K/mm3 (0.1-1.0); Monocytes % 5.9 % (1.7-9.3); Neutrophils # 8.8 K/mm3 (1.8-7.8); Platelet Count 226 K/mm3 (142-424); Red Blood Count 3.47 M/mm3 (4.20-5.40); Red Cell Distribution Width 19.4 % (11.5-17.5); White Blood Count 10.1 K/mm3 (4.8-10.8)
[2024-07-13 09:32] LABS: Chloride 98 mmol/L (98-107); MANUAL DIFFERENTIAL MANUAL DIFFERENTIAL (MANUAL DIFF); Sodium 132 mmol/L (136-145)
[2024-07-13 09:34] LABS: Blood Urea Nitrogen 41 mg/dl (7-17); Creatinine Clearance Estimated 53 mL/min (50-200); Estimated Glomerular Filt Rate 33 ml/min (>60); GFR (African American) 40 ML/MIN (>60)
[2024-07-13 09:35] LABS: Calcium 8.8 mg/dl (8.4-10.2); Carbon Dioxide 29 mmol/L (22.0-30.0); Glucose 341 mg/dl (74-100)
[2024-07-13 09:36] LABS: INR 1.82 (0.9-1.1); Prothrombin Time 19.2 seconds (10.1-12.5)
[2024-07-13] MEDS: CALCITRIOL 0.25MCG CAPSULE 0.25 MCG PO (09:55)
[2024-07-13] MEDS: POTASSIUM CHLORIDE 20MEQ TAB 20 MEQ PO (09:55)
[2024-07-13] MEDS: BUMETANIDE 1 MG TABLET 2 MG PO (09:55)
[2024-07-13] MEDS: SPIRONOLACTONE 25MG TABLET 50 MG PO (09:55)
[2024-07-13] MEDS: METOPROLOL SUCCINATE XL 100MG TABLET 100 MG PO (09:55)
[2024-07-13] MEDS: ASPIRIN EC 81MG TABLET 81 MG PO (09:55)
[2024-07-13] MEDS: LEVOTHYROXINE 25MCG (0.025MG) TAB 25 MCG PO (09:55)
[2024-07-13 10:02] LABS: Magnesium 2.9 mg/dl (1.6-2.3)
[2024-07-13 10:20] LABS: Eosinophils % 1 % (0-3); Lymphocytes % 6 % (10-50); Monocytes % 2 % (2-9); Neutrophils % 91 % (42-76); Platelet Estimate Normal; RBC Morphology Normal; Total Cells Counted 100
--- NOTE | 2024-07-13 10:53 | EXP.CARD.PN ---
Subjective Subjective Date: 07/13/24 Time: 08:30 Principal diagnosis: HFrEF s/p BiV AICD placement, anemia Interval history: This is a 59-year-old female who was admitted to hospital following AICD placement. She was initially supposed to be discharged yesterday but repeat labs showed that her hemoglobin was down to 7.3. She was transfused with 2 units of packed red blood cells yesterday and her hemoglobin was up to 9.8 posttransfusion. She did have some episodes of atrial fibrillation with RVR overnight which was most likely because her Toprol had been held. She was treated with IV Lopressor and she was restarted on her Toprol this morning. Her heart rate has improved and is in the 80s during the time of my evaluation. The patient is complaining of fatigue and just not having any energy. She states that she did feel the palpitations and her heart racing which has improved since being given her medication. She denies any chest pain or pressure. She denies any shortness of breath or edema. She denies any fever, chills, nausea, vomiting, diarrhea, PND or orthopnea. Exam Data for Last 24 hours Vital signs and Labs for Last 24 Hours: Temp Pulse Resp BP Pulse Ox O2 Del Method O2 Flow Rate 98 F 74 18 135/80 10 L Nasal Cannula 2 07/13/24 08:00 07/13/24 08:00 07/13/24 08:00 07/13/24 08:00 07/13/24 08:00 07/13/24 08:00 07/13/24 08:00 Laboratory Results - last 24 hr 07/11/24 09:03: Blood Type O Positive, Antibody Screen Negative, Crossmatch (AHG) See Detail 07/12/24 11:31: POC Glucose 354 H* 07/12/24 17:27: POC Glucose 280 H 07/12/24 19:50: Hgb 9.8 L D, Hct 32.2 L 07/12/24 20:54: POC Glucose 395 H* 07/13/24 05:23: POC Glucose 289 H 07/13/24 09:05: WBC 10.1 D, RBC 3.47 L D, Hgb 9.3 L, Hct 30.8 L, MCV 88.5, MCH 26.8 L, MCHC 30.3 L, RDW 19.4 H, Plt Count 226, MPV 8.6, Neut % (Auto) 87.0 H, Lymph % (Auto) 3.2 L, [place] % (Auto) 5.9, Eos % (Auto) 3.5, Baso % (Auto) 0.4, Neut # (Auto) 8.8 H, Lymph # (Auto) 0.3 L, [place] # (Auto) 0.6, Eos # (Auto) 0.4, Baso # (Auto) 0.0, Total Counted 100, Neutrophils % (Manual) 91 H, Lymphocytes % (Manual) 6 L, Monocytes % (Manual) 2, Eosinophils % (Manual) 1, Platelet Estimate Normal, RBC Morphology Normal, PT 19.2 H, INR 1.82 H, Sodium 132 L, Potassium 5.0, Chloride 98, Carbon Dioxide 29, Anion Gap 10.0, BUN 41 H, Creatinine 1.60 H, Estimated Creat Clear 53, Estimated GFR 33 L, Est GFR ( Amer) 40 L, Glucose 341 H, Calcium 8.8, Magnesium 2.9 H D I & O for Last 24 hours: Intake & Output 07/10/24 07/11/24 07/12/24 07/13/24 23:59 23:59 23:59 23:59 Intake Total 2240 / 2241 2251 / 2251 270 / 270 Output Total 0 / 0 0 / 0 Balance 2241 / 224 2251 / 2251 270 / 270 Weight 188 lb 8 oz 192 lb 6.4 oz 199 lb 6.4 oz Constitutional Constitutional: no acute distress and obese *Routine HEENT Exam Head: Present normocephalic and atraumatic ENT: Present mucous membranes moist *Routine Neck Exam Neck: Present supple, full ROM and normal carotid upstroke; Absent JVD, carotid bruit or lymphadenopathy *Routine Respiratory Exam Respiratory: Present CTA bilaterally, normal respiratory effort, able to speak in complete sentences and symmetric chest movement *Routine Cardiovascular Exam Cardiovascular: Present Normal S1, Normal S2, murmur and click; Absent gallop *Routine Abdominal Exam Abdominal: Present soft and normoactive bowel sounds; Absent tenderness, distended or organomegaly *Routine Extremities Exam Extremities: Present full ROM, pulses intact and normal capillary refill; Absent cyanosis, clubbing or edema *Routine Skin Exam Skin: Present intact and warm; Absent erythema *Routine Neurological Exam Neurological: Present alert, oriented X3 and CN II-XII intact; Absent sensory deficit or motor deficit Routine Psychiatric Exam Psychiatric: Present normal affect Progress Note: A&P Assessment and plan (1) Presence of biventricular AICD: Status: Acute (2) HFrEF (heart failure with reduced ejection fraction): Status: Acute (3) Chronic renal insufficiency, stage III (moderate): Status: Acute (4) Diabetes mellitus: Status: Acute (5) Anemia: Status: Acute (6) Third degree heart block: Status: Acute (7) Junctional escape rhythm: Status: Acute (8) History of mitral valve replacement with mechanical valve: Status: Acute (9) Current use of custodial anticoagulation: Status: Acute (10) Iron deficiency anemia: Status: Acute (11) HTN (hypertension): Status: Acute (12) GERD (gastroesophageal reflux disease): Status: Acute Assessment and Plan Assessment and Plan for All Diagnoses:: Plan: 1. The patient was admitted to the hospital following AICD placement because contrast was used to find the coronary sinus and due to her chronic kidney disease wanted to recheck her renal function. Her renal function did improve and her creatinine was down to 1.5 from 1.9 yesterday. Her creatinine is stable at 1.6 today. 2. The patient does have some tenderness at her AICD insertion site. There are no signs of infection. She has chronic pain medication at home that she states that she will use for the pain. 3. HFrEF is present. She is status post AICD placement. Continue Bumex, metolazone, metoprolol, spironolactone for HFrEF. No TU/ARB/Entresto due to her renal function. 4. The patient does have paroxysmal atrial fibrillation. She did have some episodes of A-fib with RVR overnight. She was treated with IV Lopressor and restarted on her Toprol today. Her heart rate is under much better control at this time. 5. The patient is status post mechanical mitral valve replacement. 6. She is on Coumadin for long-term anticoagulation. INR goal is 2.5-3.5. INR today is 1.8. Will give her dose of Lovenox 90 mg subcu x 1 dose now. Then we will send her home with a prescription for Lovenox injections 90 mg SQ twice daily and she will recheck her INR on Wednesday and then we will dose out Lovenox from there. 7. Her blood pressure is well-controlled this morning. 8. Her LDL goal is less than 100. 9. The patient was not discharged home yesterday due to her anemia. Her hemoglobin was down to 7.3. She was transfused with 2 units of packed red blood cells and her hemoglobin came up to 9.8. 10. The patient is stable for discharge home today from a cardiac standpoint. She will need to follow-up in cardiology clinic next week for staple removal. She can be discharged on the following cardiac medications: Aspirin 81 mg daily, Bumex 2 mg during the day Bumex 1 mg in the evening, total is on 2.5 mg daily as needed, Toprol-XL 100 mg p.o. twice daily, spironolactone 50 mg during the day and spironolactone 25 mg in the evening, warfarin 2 mg on Mondays and Fridays and warfarin 4 mg on Wednesday and Wednesday. Thank you for the opportunity to help participate in the care of this patient. All recommendations and orders are per Dr. Sawyer.
[2024-07-13 12:00] VITALS: BP 116/68; PULSE 58; RESP 17; TEMP 36.7; O2SAT 90
[2024-07-13] MEDS: ENOXAPARIN 100MG/ML SYRINGE 90 MG SQ (12:49)
[2024-07-13] MEDS: WARFARIN 2MG TABLET 4 MG PO (12:51)
[2024-07-13 12:52] VITALS: PULSE 140
[2024-07-13 13:03] LABS: POC Glucose,Bedside 445 (70-110)
--- NOTE | 2024-07-18 13:04 | CARE MANAGER ---
Discharge follow up call not performed as patient was readmitted to hospital. JEREMIAH Hillman
== END 2024-07-13 15:52 | disposition home or self-care (01) ==
LOC: 2ND 13:04
PROVIDERS: Internal Medicine; Nurse Practitioner Family; Admitting Provider Internal Medicine; PCP Internal Medicine Adolescent Medicine; Visit Provider Internal Medicine
PROC: 0JH609Z Insertion of Cardiac Resynchronization Defibrillator Pulse Generator into Chest Subcutaneous Tissue and Fascia, Open Approach (ICD-10-PCS; CPT 33249; principal; 2024-07-11 07:00)
DX: I13.0 Hypertensive heart and chronic kidney disease with heart failure and stage 1 through stage 4 chronic kidney disease, or unspecified chronic kidney disease; I50.22 Chronic systolic (congestive) heart failure; D50.9 Iron deficiency anemia, unspecified; I48.20 Chronic atrial fibrillation, unspecified; N18.32 Chronic kidney disease, stage 3b; N17.9 Acute kidney failure, unspecified; E11.22 Type 2 diabetes mellitus with diabetic chronic kidney disease; I42.9 Cardiomyopathy, unspecified; K21.9 Gastro-esophageal reflux disease without esophagitis; J44.9 Chronic obstructive pulmonary disease, unspecified; E78.5 Hyperlipidemia, unspecified; Z79.01 Long term (current) use of anticoagulants; Z95.2 Presence of prosthetic heart valve; I49.49 Other premature depolarization; I44.2 Atrioventricular block, complete; Z79.4 Long term (current) use of insulin; Z79.899 Other long term (current) drug therapy; Z87.891 Personal history of nicotine dependence; I27.20 Pulmonary hypertension, unspecified; I07.1 Rheumatic tricuspid insufficiency
CPT/HCPCS: 33225; 33249; 36415; 36430; 71045; 80048; 80061; 82962; 83735; 85007; 85014; 85018; 85025; 85027; 85610; 86850; 93005; C1769; C1882; C1895; C1898; C1900; G0378; J1200; J1642; J1650; J2250; J3010; J3475; J7030; P9016; P9017; Q9967

== ENCOUNTER 2024-07-14 17:01 | Observation (INO) | payer MEDICARE, MEDICAID, SELFPAY ==
[2024-07-14] VITALS (10 sets, daily range): BP systolic 107–132; BP diastolic 67–78; PULSE 92–101; RESP 17–20; TEMP 36.6–37; O2SAT 92–98; BMI 33.1
--- NOTE | 2024-07-14 17:06 | XR_ITS ---
PROCEDURE INFORMATION: Exam: XR Chest Exam date and time: 07/14/2024 5:14 PM Age: 59 years old Clinical indication: Pain; Chest pressure; Additional info: Cp shocks from aicd TECHNIQUE: Imaging protocol: Radiologic exam of the chest. Views: 1 view. COMPARISON: CR XR CHEST PORTABLE 07/11/2024 12:57 PM FINDINGS: Tubes, catheters and devices: There is a left chest implanted cardiac device. There is a right chest port in place catheter tip projects over the SVC. Lungs: No evidence of acute pulmonary disease or infiltrates Pleural spaces: No large effusion or pneumothorax. Heart/Mediastinum: Stable cardiac and mediastinal contours. Bones/joints: No evidence of acute osseous abnormalities within the visualized portions of the thoracic spine and ribs. Osseous structures appear appropriate for patient age. The patient is status post median sternotomy. Soft tissues: No change in skin leonides over ICD pocket. IMPRESSION: No dense parenchymal consolidation, pleural effusion, or pneumothorax.
--- NOTE | 2024-07-14 17:10 | ECG_ITS ---
APPROVED REPORT Exam: Resting ECG HR:100 bpm ECG Measurements Heart Rate 100 AXES QRSd 151 QRS 83 QT 359 T 51 QTc 416 Conclusion V paced rhythm Electronically signed by : JASMINA STERN, 07/14/2024 23:22:35
--- NOTE | 2024-07-14 17:17 | PC.NURSE ---
Dr. Johnson at bedside
[2024-07-14 17:35] LABS: Basophils % 0.3 % (0.1-2.0); Eosinophils # 0.3 K/mm3 (0.0-0.4); Eosinophils % 3.5 % (0.1-12.0); Hematocrit 30.4 % (37.0-47.0); Lymphocytes # 0.4 K/mm3 (0.7-4.5); Lymphocytes % 3.6 % (10-50); Mean Corpuscular HGB Conc 29.7 g/dL (31.8-35.4); Mean Corpuscular Hemoglobin 26.3 pg (27.0-31.2); Mean Corpuscular Volume 88.3 fl (81-99); Mean Platelet Volume 8.5 fl (7.4-10.4); Monocytes # 0.5 K/mm3 (0.1-1.0); Monocytes % 4.7 % (1.7-9.3); Neutrophils # 8.6 K/mm3 (1.8-7.8); Neutrophils % 87.9 % (37.0-80.0); Platelet Count 217 K/mm3 (142-424); Red Blood Count 3.44 M/mm3 (4.20-5.40); Red Cell Distribution Width 19.4 % (11.5-17.5); White Blood Count 9.8 K/mm3 (4.8-10.8)
[2024-07-14 17:37] LABS: MANUAL DIFFERENTIAL MANUAL DIFFERENTIAL (MANUAL DIFF)
[2024-07-14 17:45] LABS: Activated Partial Thrombo Time 37.2 seconds (22.8-30.6)
[2024-07-14 17:47] LABS: Albumin Level 4.1 g/dl (3.5-5.0); Chloride 100 mmol/L (98-107); Potassium 4.9 mmoL/L (3.5-5.1); Sodium 135 mmol/L (136-145)
[2024-07-14 17:50] LABS: Alanine Aminotransferase 21 U/L (12-78); Albumin/Globulin Ratio 1.3 (1.1-1.8); Alkaline Phosphatase 94 U/L (38-126); Anion Gap 9.9 mEq/L (5-15); Aspartate Amino Transferase 26 U/L (14-36); Bilirubin,Total 1.6 mg/dl (0.2-1.3); Blood Urea Nitrogen 40 mg/dl (7-17); Carbon Dioxide 30 mmol/L (22.0-30.0); Creatinine Clearance Estimated 63 mL/min (50-200); Estimated Glomerular Filt Rate 42 ml/min (>60); GFR (African American) 50 ML/MIN (>60); Globulin 3.2 g/dL (1.3-3.2); Total Protein,Serum 7.3 g/dl (6.3-8.2)
[2024-07-14 17:51] LABS: Calcium 9.5 mg/dl (8.4-10.2); Glucose 231 mg/dl (74-100); Magnesium 1.9 mg/dl (1.6-2.3)
[2024-07-14 18:04] LABS: Troponin I 0.05 ng/ml (0.00-0.034)
[2024-07-14 18:13] LABS: Lactic Acid 1.3 mmol/L (0.7-2.1)
[2024-07-14 19:00] LABS: Eosinophils % 3 % (0-3); Hypochromasia 1+; Lymphocytes % 4 % (10-50); Monocytes % 5 % (2-9); Neutrophils % 88 % (42-76); Platelet Estimate Normal; Total Cells Counted 100
--- NOTE | 2024-07-14 19:03 | [facility].EDCP ---
Discharge Plan Disposition Patient Disposition: Admitted Prescriptions Prescriptions: No Action aspirin [Adult Low Dose Aspirin] 81 mg tablet,delayed release (DR/EC) 81 mg PO DAILY oxycodone-acetaminophen [Percocet] 10-325 mg tablet 1 tab PO QID alprazolam [Xanax] 0.5 mg tablet 0.5 mg PO TID potassium chloride 20 mEq tablet,ER particles/crystals 20 meq PO DAILY duloxetine 60 mg capsule,delayed release(DR/EC) 60 mg PO HS Patient Comments: TAKE (1) CAPSULE BY MOUTH ONCE A DAY. metolazone 2.5 mg tablet 2.5 mg PO DAILYP PRN (Reason: edema) bumetanide 2 mg tablet 1 mg PO HS Rx Instructions: 1 tablet in the am and 0.5 tablet in the pm spironolactone 50 mg tablet 25 mg PO HS enoxaparin [Lovenox] 100 mg/mL syringe 90 mg SQ Q12H 4 Days Qty: 7.2 0RF levothyroxine 25 MCG tablet 25 mcg PO DAILY calcitriol 0.25 mcg Capsule 0.25 mcg PO DAILY warfarin 4 mg tablet 4 mg PO SUTUWETHSA warfarin 4 mg tablet 2 mg PO MOFR insulin glargine-lixisenatide 3 ML insulin pen 60 units SQ DAILY febuxostat 40 mg tablet 40 mg PO DAILY dexlansoprazole [Dexilant] 30 mg capsule,biphase delayed releas 30 mg PO DAILY Patient Comments: TAKE (1) CAPSULE BY MOUTH ONCE A DAY. bumetanide 2 mg tablet 2 mg PO DAILY spironolactone 50 mg tablet 50 mg PO DAILY insulin glargine [Lantus Solostar U-100 Insulin] 100 unit/mL (3 mL) insulin pen 10 unit SQ HS Patient Comments: INJECT 10 UNITS SUB-Q AT BEDTIME. EACH PEN EXPIRES 28 DAYS AFTER FIRST USE. metoprolol succinate 100 mg tablet extended release 24 hr 100 mg PO BID Referrals Follow up/Referrals: Reji Castro MD [Primary Care Provider] - See instructions Clinical Impressions Clinical Impression: Non-ST elevation SC (NSTEMI), AICD discharge Print Language Print Language: French Discharge ED Provider: Paolo Johnson General Chief Complaint: Chest Pain Stated Complaint: PACEMAKER/DEF PLACED ON 08/11 SHOCKED 8 TIMES TODAY Time Seen by Provider: 07/14/24 17:04 Mode of Arrival: Ambulatory Source of Information: Patient Limitations: No Limitations Description of Symptoms (Recalled from ER Triage Doc. by RN): pt arrives stating she has been shocked x7 today by her ICD. pt states she was d/c from an inhospitalization yesterday. pt states she had her ICD placed on 07/11. pt states her only symptoms are numbness in her L index/middle finger. pt denies pain. pt states she has a hx of a mechanical mitral valve, rheumatic diseased heart and a nonfunctioning tricuspid valve. History of Present Illness HPI narrative: Please note that above description of symptoms, in this electronic medical record under categorization of recalled from ER triage doctor by RN are reflective of an initial nursing assessment, however, is not reflective of my full history and physical exam that was personally taken and clarified. Consequentially, this preceding description of symptoms, which may include the patient's categorized chief complaint in the EMR, do not reflect my personal clinical impression, and the ultimate description of history of present illness and patient stated complaints should be deferred to this section of the note. Unless stated otherwise or congruent with this section of the note, additional signs, symptoms, or incongruence should be interpreted as inaccurate with my clinical impression. Related Data Home Medications ?Medication ?Instructions ?Recorded ?Confirmed aspirin 81 mg tablet,delayed 81 mg PO DAILY 12/01/17 07/11/24 release (Adult Low Dose Aspirin) oxycodone-acetaminophen 10 mg-325 1 tab PO QID 05/23/18 07/11/24 mg tablet (Percocet) alprazolam 0.5 mg tablet (Xanax) 0.5 mg PO TID 11/29/19 07/11/24 levothyroxine 25 mcg tablet 25 mcg PO DAILY 06/05/21 07/11/24 insulin glargine 100 60 units SQ DAILY 02/22/22 07/11/24 unit-lixisenatide 33 mcg/mL subcutaneous pen febuxostat 40 mg tablet 40 mg PO DAILY 02/09/23 07/11/24 potassium chloride 20 mEq 20 meq PO DAILY 04/15/23 07/11/24 tablet,extended release(part/cryst) calcitriol 0.25 mcg capsule 0.25 mcg PO DAILY 10/30/23 07/11/24 warfarin 4 mg tablet 4 mg PO SUTUWETHSA 10/31/23 07/11/24 warfarin 4 mg tablet 2 mg PO MOFR 11/25/23 07/11/24 duloxetine 60 mg capsule,delayed 60 mg PO HS 03/06/24 07/11/24 release dexlansoprazole 30 mg 30 mg PO DAILY 03/29/24 07/11/24 capsule,biphase delayed release (Dexilant) bumetanide 2 mg tablet 1 mg PO HS 06/15/24 07/11/24 metolazone 2.5 mg tablet 2.5 mg PO DAILYP PRN edema 06/15/24 07/11/24 spironolactone 50 mg tablet 25 mg PO HS 06/15/24 07/11/24 insulin glargine 100 unit/mL (3 10 unit SQ HS 06/27/24 07/11/24 mL) subcutaneous pen (Lantus Solostar U-100 Insulin) metoprolol succinate 100 mg 100 mg PO BID 06/27/24 07/11/24 tablet,extended release 24 hr bumetanide 2 mg tablet 2 mg PO DAILY 07/11/24 07/11/24 spironolactone 50 mg tablet 50 mg PO DAILY 07/11/24 07/11/24 Previous Rx's ?Medication ?Instructions ?Recorded enoxaparin 100 mg/mL subcutaneous 90 mg (0.9 mL) SQ Q12H 4 days #7.2 07/13/24 syringe (Lovenox) mL Allergies Allergy/AdvReac Type Severity Reaction Status Date / Time codeine [CODEINE] Allergy Unknown nausea, Verified 07/07/24 13:08 swelling Corticosteroids Allergy Unknown Unknown Verified 07/07/24 13:08 (Glucocorticoids) allergy [CORTICOSTEROIDS reaction (GLUCOCORTICOIDS)] NSAIDS (Non-Steroidal Allergy Unknown Other Verified 07/07/24 13:08 Anti-Inflamma rosuvastatin [From CRESTOR] Allergy Unknown Unknown Verified 07/07/24 13:08 allergy reaction theophylline [From DAVID-DUR] Allergy Unknown Unknown Verified 07/07/24 13:08 allergy reaction Iodinated Contrast Media AdvReac Severe shuts Verified 07/07/24 13:08 [IODINATED CONTRAST- ORAL kidneys AND IV DYE] down and bleeding buprenorphine [From BUPRENEX] AdvReac Intermediate Nausea Verified 07/07/24 13:08 levofloxacin [From Levaquin] AdvReac Verified 07/07/24 13:08 lisinopril AdvReac Cough Verified 07/07/24 13:08 prednisone AdvReac Unknown Verified 07/07/24 13:08 allergy reaction sacubitril [From Entresto] AdvReac Hypotension Verified 07/07/24 13:08 valsartan [From Entresto] AdvReac Hypotension Verified 07/07/24 13:08 PFSH PFS Disclaimer: The information contained in this section may have been updated after the patient was seen, as this information can be updated by other users. Medical History (Updated 07/14/24 @ 21:02 by Paolo Johnson MD) Third degree heart block Junctional escape rhythm Current use of alf anticoagulation Afib HFrEF (heart failure with reduced ejection fraction) Partial tear of tendon CHF (NYHA class III, ACC/AHA stage C) Atrial fibrillation, chronic COPD exacerbation CHF exacerbation Anemia Systolic CHF Typical angina Dyspnea Rib fracture Blood transfusion reaction Autoimmune hemolytic anemia Arthritis Hernia Sinus problem Rheumatic heart disease Hypothyroidism Polyarthralgia Pulmonary edema HLD (hyperlipidemia) HTN (hypertension) CAD (coronary artery disease) DM type 2 (diabetes mellitus, type 2) DVT (deep venous thrombosis) Cardiomyopathy Arrhythmia Liver disease Thyroid disease Valvular heart disease Hypertension Hyperlipidemia GERD (gastroesophageal reflux disease) COPD (chronic obstructive pulmonary disease) Class 1 obesity CKD (chronic kidney disease) stage 3, GFR 30-59 ml/min Acute on chronic HFrEF (heart failure with reduced ejection fraction) Coronary artery disease Congestive heart failure, NYHA class III NYHA class 3 acute on chronic systolic heart failure Diabetes mellitus Hypertensive heart disease CHF (congestive heart failure) Diastolic heart failure Tricuspid valve regurgitation intermediate current use of anticoagulants with INR goal of 2.5-3.5 Surgical History (Updated 07/12/24 @ 11:46 by Celina Back APRN) Presence of biventricular AICD History of mitral valve replacement with mechanical valve Mitral valve replaced History of colon resection H/O tubal ligation History of angioplasty History of renal stent History of ureteroscopy History of tubal ligation History of hernia repair History of cardiac catheterization Family History Other Breast cancer COPD (chronic obstructive pulmonary disease) Colon cancer Family history of acute heart failure Family history of hyperlipidemia Family history of hypertension Family history of myocardial infarction Hypertension Stroke Social History Smoking Status: Never smoker smoking status stop date: 01/09/2006 quit status: quit date established second hand exposure: Yes alcohol intake: never substance use type: denies use current occupational status: retired and disabled Travel in the last 8 weeks: None adopted: No caregiver/support person: No foster care: No household members: significant other housing: house lives independently: Yes marital status: life partner education level: college service: No longterm: No current occupational exposures/hazards: No sexually active: Yes how many partners: 1 are you practicing safe sex: Yes diet: diabetic well-balanced diet: about half the time caffeine: No eating out: rarely or never during the past year weight has: remained stable bhavya/mosque: [employer] special bhavya needs: No agree to transfusion: Yes helmet use: No water heater temp set < 120 deg: Yes working smoke detector in home: Yes fire extinguisher in home: Yes carbon monox detector in home: Yes firearms in home: No do you feel safe at home: Yes victim of physical abuse: No victim of emotional abuse: No victim of sexual abuse: No would you like helpful sources: No ROS Obtained: Yes All systems reviewed & no additional complaints except as documented Physical Exam General General appearance: alert Neck Neck exam: Present trachea midline Chest Chest inspection: Present normal inspection and symmetric chest wall rise Respiratory Respiratory exam: Present normal lung sounds bilaterally; Absent respiratory distress, wheezes, stridor, accessory muscle use or prolonged expiratory phase Cardiovascular Cardiovascular exam: Present regular rate, normal rhythm, clicks and other (Pulses equal and symmetric in upper and lower extremities) Extremities Exam Extremities exam: Absent edema Neurological Exam Neurological exam: Present alert, oriented X3 and CN II-XII intact Skin Skin exam: Present warm and dry; Absent cyanosis, diaphoresis or pallor HEART Score HEART Score HEART Score assessment performed?: Yes HEART Score: 7 Critical Care Critical Care Time Critical Care Time: Yes (CV) Attestation: On 07/14/24, the high probability of a clinically significant, sudden or life threatening deterioration of the following system(s) required my full and direct attention, intervention and personal management. The time I documented below is in addition to time spent performing reported procedures but includes the following listed in this critical care notation. Total Time Total Critical Care Time: 45 Medical Decision Making Medical Records Medical records reviewed: Yes I reviewed the patient's medical records. Jeancarlos Inquiry Pt receiving controlled substance: No Jeancarlos was queried for this patient: No Vital Signs Vital Signs: 07/14/24 17:06 07/14/24 17:30 07/14/24 17:30 Temperature 98.6 F Temperature Source Oral Pulse Rate 97 H 96 H Pulse Rate [Left] 92 H Respiratory Rate 18 18 Blood Pressure 128/69 129/70 Blood Pressure [Right Arm] 128/69 Blood Pressure Mean 92 83 Blood Pressure Mean [Right Arm] 88 Blood Pressure Source [Right Arm] Automatic Cuff Blood Pressure Position [Right Arm] Sitting 02 Sat by Pulse Oximetry 96 95 98 Oxygen Delivery Method Nasal Cannula Oxygen Flow Rate (LPM) 2 07/14/24 18:04 07/14/24 18:30 07/14/24 19:00 Temperature Temperature Source Pulse Rate 98 H 92 H 98 H Pulse Rate [Left] Respiratory Rate Blood Pressure 128/67 124/77 110/68 Blood Pressure [Right Arm] Blood Pressure Mean 81 Blood Pressure Mean [Right Arm] Blood Pressure Source [Right Arm] Blood Pressure Position [Right Arm] 02 Sat by Pulse Oximetry 97 97 95 Oxygen Delivery Method Nasal Cannula Nasal Cannula Oxygen Flow Rate (LPM) 07/14/24 19:33 Temperature Temperature Source Pulse Rate 99 H Pulse Rate [Left] Respiratory Rate 17 Blood Pressure 121/68 Blood Pressure [Right Arm] Blood Pressure Mean 90 Blood Pressure Mean [Right Arm] Blood Pressure Source [Right Arm] Blood Pressure Position [Right Arm] 02 Sat by Pulse Oximetry 97 Oxygen Delivery Method Oxygen Flow Rate (LPM) Lab Data Labs: Lab Results 07/14/24 17:26: WBC 9.8, RBC 3.44 L, Hgb 9.0 L, Hct 30.4 L, MCV 88.3, MCH 26.3 L, MCHC 29.7 L, RDW 19.4 H, Plt Count 217, MPV 8.5, Neut % (Auto) 87.9 H, Lymph % (Auto) 3.6 L, Mercer % (Auto) 4.7, Eos % (Auto) 3.5, Baso % (Auto) 0.3, Neut # (Auto) 8.6 H, Lymph # (Auto) 0.4 L, Mercer # (Auto) 0.5, Eos # (Auto) 0.3, Baso # (Auto) 0.0, Total Counted 100, Neutrophils % (Manual) 88 H, Lymphocytes % (Manual) 4 L, Monocytes % (Manual) 5, Eosinophils % (Manual) 3, Platelet Estimate Normal, Hypochromasia 1+, APTT 37.2 H, Sodium 135 L, Potassium 4.9, Chloride 100, Carbon Dioxide 30, Anion Gap 9.9, BUN 40 H, Creatinine 1.30 H, Estimated Creat Clear 63, Estimated GFR 42 L, Est GFR ( Amer) 50 L D, Glucose 231 H, Calcium 9.5, Magnesium 1.9 D, Total Bilirubin 1.6 H, AST 26, ALT 21, Alkaline Phosphatase 94, Troponin I 0.05 H, Total Protein 7.3, Albumin 4.1, Globulin 3.2, Albumin/Globulin Ratio 1.3 07/14/24 17:58: Lactate 1.3 07/14/24 20:25: Troponin I 0.16 H 07/14/24 17:26 07/14/24 17:26 Response Orders (Tests/Meds): ED MEDICATIONS Generic Name Dose Route Start Last Admin Trade Name Freq PRN Reason Stop Dose Admin Aspirin 324 mg 07/14/24 21:01 Aspirin 81mg Chewable Tablet PO 07/14/24 21:02 ONCE ONE Discontinued Medications Generic Name Dose Route Start Last Admin Trade Name Freq PRN Reason Stop Dose Admin Magnesium Sulfate 2 gm in 50 mls @ 50 mls/hr 07/14/24 19:06 07/14/24 19:30 Magnesium Sulfate 2gm/50ml Premix IV 07/14/24 20:05 50 mls/hr ONCE ONE Administration ORDERS Category Date Time Status XR chest portable Stat Exams 07/14/24 17:06 Completed Complete Blood Count Auto Diff Stat Lab 07/14/24 17:26 Completed Comprehensive Metabolic Panel Stat Lab 07/14/24 17:26 Completed Lactic Acid Stat Lab 07/14/24 17:58 Completed Magnesium Stat Lab 07/14/24 17:26 Completed NT Pro Brain Natriuretic Pep. Stat Lab 07/14/24 17:26 Received PTT [Activated Partial Thrombo Time] Stat Lab 07/14/24 17:26 Completed Troponin I Q3H Lab 07/14/24 20:25 Completed Troponin I Q3H Lab 07/14/24 23:15 Ordered Troponin I Stat Lab 07/14/24 17:26 Completed MDM Narrative Medical Decision Narrative: 59-year-old female history of hypertension, hyperlipidemia, fibrillation on warfarin, mitral valve mechanical replacement, CKD, cardiomyopathy status post recent AICD placement on 07/11 presenting with AICD shocks. States that she got out of the shower today just after being shocked once. States that it almost sent her to the ground. Received 8 total shocks. Denies chest pain, shortness of breath, nausea, vomiting, syncope, or any other concerns at this time. No other associated symptoms History was obtained via conversation with patient and EMS. On arrival, patient hemodynamically stable, alert, oriented x4, appropriate, GCS 15, moving all extremities spontaneously, pupils equal and reactive to light. Full physical exam performed and significant for very well-appearing female no acute distress. Nontachycardic, normotensive, speaking full sentences. Cardiac exam with obvious click, no murmurs gallops rubs, patient's lower extremities without edema. Lungs are clear to auscultation bilaterally anterior and posteriorly. Differential includes malignant arrhythmia, tachyarrhythmia, bradycardia arrhythmia, appropriate shocks, inappropriate shocks, among others. Patient was given 2 g magnesium IV for symptomatic management and correction of underlying abnormalities. Patient placed on continuous cardiac monitoring and continuous pulse ox with initial blood pressure 124/70, heart rate 92, saturation 97% on 2.5 L nasal cannula which she wears at home. Independent interpretation of EKG shows V paced rhythm no ST or T wave changes concerning for acute ischemia. QRS 151, QTc 416. Workup independently interpreted and significant for nonactionable CBC. Stable CKD. Patient's initial troponin elevated at 0.05. Independent interpretation of x-ray without acute pacemaker abnormality. Patient was placed in observation beginning at 6 PM in order to evolving SC with delta troponins and determine need for admission versus home-going. The patient was provided cardiac monitoring, etc. while awaiting results. Independent interpretation of results demonstrated positive delta troponin concerning for NSTEMI. Attempts were made to interrogate patient's AICD, failed. Pacemaker car sales representative was contacted and they stated it may be multiple hours before she is able to have pacemaker interrogated. Because patient high risk for clinical decompensation, deemed appropriate for inpatient admission. Results were relayed to patient who voiced understanding and patient was agreeable to inpatient admission and management. Patient was admitted to the hospital for further definitive management. [employer] disclaimer Much of this encounter note is an electronic racing secretary and handicapper spoken language to printed text. Electronic racing secretary and handicapper of the spoken language may permit errors. Although I have reviewed the note, some errors may still exist.
[2024-07-14] MEDS: MAGNESIUM SULFATE IN WATER 2 GM/50 ML PIGGYBACK IV (19:30)
--- NOTE | 2024-07-14 19:59 | PC.NURSE ---
Currently attempting to speak to [employer] support to get details on interrogation report.
--- NOTE | 2024-07-14 20:18 | PC.NURSE ---
Spoke with on-call, no report successfully seen. Will re-interrogate.
--- NOTE | 2024-07-14 20:32 | PC.NURSE ---
Attempted to re-interrogate device. Interrogation device reads error and unable to scan at this time. Contacted the on-call sales promotion representative and spoke with Dr. Johnson, provider requests that an sales promotion representative is dispatched for interrogation.
--- NOTE | 2024-07-14 20:37 | PC.NURSE ---
Contacted on-call, awaiting call from on-call dispatched authorization representative for interrogation. Provider notified. Patient reports that she feels hot and that her sugar has been high lately. Patient FSBG [id number] at this time.
[2024-07-14 20:57] LABS: Troponin I 0.16 ng/ml (0.00-0.034)
--- NOTE | 2024-07-14 21:04 | P.HP_ITS ---
History of Present Illness *Admission Date: 07/14/24 *Reason for visit:: s/p AICD *History of present illness: This is a 59-year-old female history of hypertension, hyperlipidemia, fibrillation on warfarin, mitral valve mechanical replacement, CKD, hypertension, GERD, COPD, CHF, hemolytic anemia, cardiomyopathy status post recent AICD placement on 07/11 presenting with AICD shocks. States that she got out of the shower today just after being shocked once. States that it almost sent her to the ground. Received 8 total shocks. Denies chest pain, shortness of breath, nausea, vomiting, syncope, or any other concerns at this time. 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 recently discharged yesterday. Admitted for further monitoring. [facility] Disclaimer: The information contained in this section may have been updated after the patient was seen, as this information can be updated by other users. Medical History (Updated 07/14/24 @ 21:02 by Paolo Johnson MD) Third degree heart block Junctional escape rhythm Current use of fdc anticoagulation Afib HFrEF (heart failure with reduced ejection fraction) Partial tear of tendon CHF (NYHA class III, ACC/AHA stage C) Atrial fibrillation, chronic COPD exacerbation CHF exacerbation Anemia Systolic CHF Typical angina Dyspnea Rib fracture Blood transfusion reaction Autoimmune hemolytic anemia Arthritis Hernia Sinus problem Rheumatic heart disease Hypothyroidism Polyarthralgia Pulmonary edema HLD (hyperlipidemia) HTN (hypertension) CAD (coronary artery disease) DM type 2 (diabetes mellitus, type 2) DVT (deep venous thrombosis) Cardiomyopathy Arrhythmia Liver disease Thyroid disease Valvular heart disease Hypertension Hyperlipidemia GERD (gastroesophageal reflux disease) COPD (chronic obstructive pulmonary disease) Class 1 obesity CKD (chronic kidney disease) stage 3, GFR 30-59 ml/min Acute on chronic HFrEF (heart failure with reduced ejection fraction) Coronary artery disease Congestive heart failure, NYHA class III NYHA class 3 acute on chronic systolic heart failure Diabetes mellitus Hypertensive heart disease CHF (congestive heart failure) Diastolic heart failure Tricuspid valve regurgitation 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 with INR goal of 2.5-3.5 Surgical History (Updated 07/12/24 @ 11:46 by Celina Back APRN) Presence of biventricular AICD History of mitral valve replacement with mechanical valve Mitral valve replaced History of colon resection H/O tubal ligation History of angioplasty History of renal stent History of ureteroscopy History of tubal ligation History of hernia repair History of cardiac catheterization Family History Other Breast cancer COPD (chronic obstructive pulmonary disease) Colon cancer Family history of acute heart failure Family history of hyperlipidemia Family history of hypertension Family history of myocardial infarction Hypertension Stroke Social History (Updated 07/14/24 @ 22:12 by Irma Jaimes RN) Smoking Status: Former smoker tobacco type: cigarettes packs per day: 1 smoking status stop date: 01/09/2006 quit status: quit date established second hand exposure: Yes alcohol intake: never substance use type: denies use current occupational status: retired and disabled Travel in the last 8 weeks: None adopted: No caregiver/support person: No foster care: No household members: significant other housing: house lives independently: Yes marital status: life partner education level: college service: No [place] [facility] [place]: No current occupational exposures/hazards: No sexually active: Yes how many partners: 1 are you practicing safe sex: Yes diet: diabetic well-balanced diet: about half the time caffeine: No eating out: rarely or never during the past year weight has: remained stable bhavya/yazidi: Faith special bhavya needs: No agree to transfusion: Yes helmet use: No water heater temp set < 120 deg: Yes working smoke detector in home: Yes fire extinguisher in home: Yes carbon monox detector in home: Yes firearms in home: No do you feel safe at home: Yes victim of physical abuse: No victim of emotional abuse: No victim of sexual abuse: No would you like helpful sources: No Review of Systems Review of Systems Review of systems:: pertinent systems reviewed and negative unless documented below Meds Home Medications and Allergies Home Medications ?Medication ?Instructions ?Recorded ?Confirmed ?Type aspirin 81 mg tablet,delayed 81 mg PO DAILY 12/01/17 07/14/24 History release (Adult Low Dose Aspirin) oxycodone-acetaminophen 10 mg-325 1 tab PO QID 05/23/18 07/14/24 History mg tablet (Percocet) alprazolam 0.5 mg tablet (Xanax) 0.5 mg PO TID 11/29/19 07/14/24 History levothyroxine 25 mcg tablet 25 mcg PO DAILY 06/05/21 07/14/24 History insulin glargine 100 60 units SQ DAILY 02/22/22 07/14/24 History unit-lixisenatide 33 mcg/mL subcutaneous pen febuxostat 40 mg tablet 40 mg PO DAILY 02/09/23 07/14/24 History potassium chloride 20 mEq 20 meq PO DAILY 04/15/23 07/14/24 History tablet,extended release(part/cryst) calcitriol 0.25 mcg capsule 0.25 mcg PO DAILY 10/30/23 07/14/24 History warfarin 4 mg tablet 4 mg PO SUTUWETHSA 10/31/23 07/14/24 History warfarin 4 mg tablet 2 mg PO MOFR 11/25/23 07/14/24 History duloxetine 60 mg capsule,delayed 60 mg PO HS 03/06/24 07/14/24 History release dexlansoprazole 30 mg 30 mg PO DAILY 03/29/24 07/14/24 History capsule,biphase delayed release (Dexilant) bumetanide 2 mg tablet 1 mg PO HS 06/15/24 07/14/24 History metolazone 2.5 mg tablet 2.5 mg PO DAILYP PRN edema 06/15/24 07/14/24 History spironolactone 50 mg tablet 25 mg PO HS 06/15/24 07/14/24 History insulin glargine 100 unit/mL (3 10 unit SQ HS 06/27/24 07/14/24 History mL) subcutaneous pen (Lantus Solostar U-100 Insulin) metoprolol succinate 100 mg 100 mg PO BID 06/27/24 07/14/24 History tablet,extended release 24 hr bumetanide 2 mg tablet 2 mg PO DAILY 07/11/24 07/14/24 History spironolactone 50 mg tablet 50 mg PO DAILY 07/11/24 07/14/24 History enoxaparin 100 mg/mL subcutaneous 90 mg (0.9 mL) SQ Q12H 4 days #7.2 07/13/24 07/14/24 Rx syringe (Lovenox) mL New Prescriptions to Start Prescriptions: Allergies Allergy/AdvReac Type Severity Reaction Status Date / Time codeine [CODEINE] Allergy Unknown nausea, Verified 07/07/24 13:08 swelling Corticosteroids Allergy Unknown Unknown Verified 07/07/24 13:08 (Glucocorticoids) allergy [CORTICOSTEROIDS reaction (GLUCOCORTICOIDS)] NSAIDS (Non-Steroidal Allergy Unknown Other Verified 07/07/24 13:08 Anti-Inflamma rosuvastatin [From CRESTOR] Allergy Unknown Unknown Verified 07/07/24 13:08 allergy reaction theophylline [From DAVID-DUR] Allergy Unknown Unknown Verified 07/07/24 13:08 allergy reaction Iodinated Contrast Media AdvReac Severe shuts Verified 07/07/24 13:08 [IODINATED CONTRAST- ORAL kidneys AND IV DYE] down and bleeding buprenorphine [From BUPRENEX] AdvReac Intermediate Nausea Verified 07/07/24 13:08 levofloxacin [From Levaquin] AdvReac Verified 07/07/24 13:08 lisinopril AdvReac Cough Verified 07/07/24 13:08 prednisone AdvReac Unknown Verified 07/07/24 13:08 allergy reaction sacubitril [From Entresto] AdvReac Hypotension Verified 07/07/24 13:08 valsartan [From Entresto] AdvReac Hypotension Verified 07/07/24 13:08 Exam Data for Last 24 hours Vital signs and Labs for Last 24 Hours: Temp Pulse Resp BP Pulse Ox O2 Del Method O2 Flow Rate 98.6 F 99 H 17 121/68 97 Nasal Cannula 2 07/14/24 17:30 07/14/24 19:33 07/14/24 19:33 07/14/24 19:33 07/14/24 19:33 07/14/24 18:30 07/14/24 17:30 Laboratory Results - last 24 hr 07/14/24 17:26: WBC 9.8, RBC 3.44 L, Hgb 9.0 L, Hct 30.4 L, MCV 88.3, MCH 26.3 L , MCHC 29.7 L, RDW 19.4 H, Plt Count 217, MPV 8.5, Neut % (Auto) 87.9 H, Lymph % (Auto) 3.6 L, [place] % (Auto) 4.7, Eos % (Auto) 3.5, Baso % (Auto) 0.3, Neut # (Auto) 8.6 H, Lymph # (Auto) 0.4 L, [place] # (Auto) 0.5, Eos # (Auto) 0.3, Baso # (Auto) 0.0, Total Counted 100, Neutrophils % (Manual) 88 H, Lymphocytes % (Manual) 4 L, Monocytes % (Manual) 5, Eosinophils % (Manual) 3, Platelet Estimate Normal, Hypochromasia 1+, APTT 37.2 H, Sodium 135 L, Potassium 4.9, Chloride 100, Carbon Dioxide 30, Anion Gap 9.9, BUN 40 H, Creatinine 1.30 H, Estimated Creat Clear 63, Estimated GFR 42 L, Est GFR ( Amer) 50 L D, Glucose 231 H, Calcium 9.5, Magnesium 1.9 D, Total Bilirubin 1.6 H, AST 26, ALT 21, Alkaline Phosphatase 94, Troponin I 0.05 H, Total Protein 7.3, Albumin 4.1, Globulin 3.2, Albumin/Globulin Ratio 1.3 07/14/24 17:58: Lactate 1.3 07/14/24 20:25: Troponin I 0.16 H I & O for Last 24 hours: Intake & Output 07/11/24 07/12/24 07/13/24 07/14/24 23:59 23:59 23:59 23:59 Weight 87.543 kg Constitutional Constitutional: no acute distress *Routine HEENT Exam Head: Present normocephalic Eye: Present EOMI ENT: Present mucous membranes moist *Routine Neck Exam Neck: Present supple and full ROM Routine Chest/Breast/Axilla Exam Chest wall: Present tenderness Comments: Tender to palpation left upper sternal pectoral region and site of AICD placement. No signs of infection at AICD pacer pocket. *Routine Respiratory Exam Respiratory: Present CTA bilaterally and normal respiratory effort *Routine Cardiovascular Exam Cardiovascular: Present RRR, Normal S1 and Normal S2 *Routine Abdominal Exam Abdominal: Present soft and normoactive bowel sounds *Routine Rectal Exam Rectal:: deferred *Routine Genitalia Exam Genitalia:: deferred *Routine Extremities Exam Extremities: Present full ROM and normal capillary refill *Routine Skin Exam Skin: Present intact *Routine Neurological Exam Neurological: Present alert, oriented X3 and CN II-XII intact H&P: Result Imaging and Cardiology EKG: Status: image reviewed by me, Preliminary report and final report Chest x-ray: Status: image reviewed by me, Preliminary report and final report Assessment and Plan *Assessment and plan (1) Non-ST elevation VT (NSTEMI): Status: Acute Category: Medical Code(s): I21.4 - Non-ST elevation (NSTEMI) myocardial infarction (2) AICD discharge: Status: Acute Category: Medical Code(s): Z45.02 - Encounter for adjustment and management of automatic implantable cardiac defibrillator (3) Presence of biventricular AICD: Status: Acute Category: Surgical Code(s): Z95.810 - Presence of automatic (implantable) cardiac defibrillator (4) Iron deficiency anemia: Status: Acute Category: Medical Code(s): D50.9 - Iron deficiency anemia, unspecified (5) Chronic renal insufficiency, stage III (moderate): Status: Acute Category: Medical Code(s): N18.30 - Chronic kidney disease, stage 3 unspecified Plan 59-year-old female history of hypertension, hyperlipidemia, fibrillation on warfarin, mitral valve mechanical replacement, CKD, hypertension, GERD, COPD, CHF, hemolytic anemia, cardiomyopathy status post recent AICD placement on 07/11 presenting with AICD shocks.significant for nonactionable CBC. Stable CKD. Patient's initial troponin elevated at 0.05. Independent interpretation of x- ray without acute pacemaker abnormality. discussed with ED for admission. Agreed for inpatient monitoring. Plan s/p AICD placement: NSTEMI - admit to evaluate. pending interrogation Telemetry, cardiology c/s. PRN pain meds. Cardiology consult trend troponin monitor for chest pain repeat labs stable stage IV CKD: ? watch I's and O's closely during hospitalization. caution with nephrotoxic medication CHF: cont home mgmt DM: SSI, AC/HS accuchecks Pulm HTN: cont home mgmt CKD: cont home mgmt, cautious fluid management throughout hospitalization Atrial Fib: cont home mgmt GERD: cont home mgmt PPX lovenox SQ FEN: cardiac Code: Full
[2024-07-14 21:05] LABS: NT Pro Brain Natriuretic Pep. 1670 pg/mL (0-125)
[2024-07-14] MEDS: ASPIRIN 81MG CHEWABLE TABLET 324 MG PO (21:05)
--- NOTE | 2024-07-14 21:17 | PC.NURSE ---
Nurse to nurse report to Liliana DANIELS
[2024-07-14 23:46] LABS: Troponin I 0.17 ng/ml (0.00-0.034)
[2024-07-15] VITALS (7 sets, daily range): BP systolic 104–140; BP diastolic 54–86; PULSE 80–130; RESP 16–20; TEMP 35.9–36.6; O2SAT 96–100; BMI 32.8
--- NOTE | 2024-07-15 03:54 | PC.NURSE ---
A/O x 4. anxious at times. No c/o chest pain or SOA. 02 in use 2LNC. VSS, Afebrile. HR mildly tachycardic, possibly junctional since arrival to med surg. Interrogation of pacemaker/ICD pending arrival of union representative. Occassional pacer spikes noted. Occassional Unifocal PVCs noted. Has a portacath right upper chest wall not accessed.
--- NOTE | 2024-07-15 04:44 | PC.NURSE ---
Patient c/o chronic low back pain. Rates pain 05/31. E Eldon MANLEY notified re pain level. Will administer tylenol 650 mg po and await for further orders for pain meds.
[2024-07-15] MEDS: ACETAMINOPHEN 325MG TAB 650 MG PO (04:47)
[2024-07-15] MEDS: WARFARIN 4 MG 4 EACH PO (04:56)
[2024-07-15 07:20] LABS: Basophils % 0.6 % (0.1-2.0); Eosinophils # 0.3 K/mm3 (0.0-0.4); Eosinophils % 5.6 % (0.1-12.0); Hematocrit 28.5 % (37.0-47.0); Hemoglobin 8.7 g/dL (12.2-16.2); Lymphocytes # 0.4 K/mm3 (0.7-4.5); Mean Corpuscular HGB Conc 30.6 g/dL (31.8-35.4); Mean Corpuscular Hemoglobin 26.9 pg (27.0-31.2); Mean Corpuscular Volume 87.7 fl (81-99); Mean Platelet Volume 8.5 fl (7.4-10.4); Monocytes # 0.4 K/mm3 (0.1-1.0); Monocytes % 7.5 % (1.7-9.3); Neutrophils # 4.2 K/mm3 (1.8-7.8); Neutrophils % 79.3 % (37.0-80.0); Platelet Count 223 K/mm3 (142-424); Red Blood Count 3.25 M/mm3 (4.20-5.40); Red Cell Distribution Width 19.3 % (11.5-17.5); White Blood Count 5.2 K/mm3 (4.8-10.8)
[2024-07-15 07:28] LABS: Alanine Aminotransferase 14 U/L (12-78); Albumin Level 3.7 g/dl (3.5-5.0); Albumin/Globulin Ratio 1.2 (1.1-1.8); Alkaline Phosphatase 85 U/L (38-126); Anion Gap 9.5 mEq/L (5-15); Aspartate Amino Transferase 27 U/L (14-36); Bilirubin,Total 1.1 mg/dl (0.2-1.3); Blood Urea Nitrogen 38 mg/dl (7-17); Calcium 9.4 mg/dl (8.4-10.2); Carbon Dioxide 32 mmol/L (22.0-30.0); Chloride 100 mmol/L (98-107); Creatinine Clearance Estimated 63 mL/min (50-200); Estimated Glomerular Filt Rate 42 ml/min (>60); GFR (African American) 50 ML/MIN (>60); Globulin 3.2 g/dL (1.3-3.2); Glucose 273 mg/dl (74-100); Magnesium 2.2 mg/dl (1.6-2.3); Potassium 4.5 mmoL/L (3.5-5.1); Sodium 137 mmol/L (136-145); Total Protein,Serum 6.9 g/dl (6.3-8.2)
[2024-07-15] MEDS: OXYCODONE 10MG W/APAP 325MG TABLET 1 EACH PO ×4 (08:27→20:47)
[2024-07-15] MEDS: ALPRAZolam 0.5MG TABLET 0.5 MG PO ×3 (08:28→20:46)
--- NOTE | 2024-07-15 08:44 | HMH.PHAINT1 ---
Pharmacy Intervention Comments: home medication list verified using discharge list from previous visit on 07/13/24
[2024-07-15 08:59] LABS: INR 1.66 (0.9-1.1); Prothrombin Time 17.7 seconds (10.1-12.5)
[2024-07-15] MEDS: POTASSIUM CHLORIDE 20 MEQ PO (09:55)
[2024-07-15] MEDS: LEVOTHYROXINE 25 MCG PO (09:55)
[2024-07-15] MEDS: ASPIRIN EC 81MG TABLET 81 MG PO (09:55)
[2024-07-15] MEDS: BUMETANIDE 1 MG TABLET 2 MG PO (09:55)
[2024-07-15] MEDS: METOPROLOL SUCCINATE 100 MG PO ×2 (09:55→20:47)
[2024-07-15] MEDS: SPIRONOLACTONE 25MG TABLET 50 MG PO (09:55)
[2024-07-15] MEDS: CALCITRIOL 0.25 MCG PO (09:55)
[2024-07-15] MEDS: ENOXAPARIN 100MG/ML SYRINGE 90 MG SQ ×2 (09:56→20:49)
--- NOTE | 2024-07-15 11:08 | PC.NURSE ---
spoke with MD regarding pt persistent tachycardia despite medication administration. EKG ordered.
--- NOTE | 2024-07-15 11:10 | ECG_ITS ---
APPROVED REPORT Exam: Resting ECG HR:97 bpm ECG Measurements Heart Rate 97 AXES QRSd 119 QRS 101 QT 365 T 55 QTc 420 Conclusion ATRIAL FIBRILLATION with intermittent pacer spkies noted POSSIBLE RIGHT VENTRICULAR HYPERTROPHY [SOME/ALL OF: PROMINENT R IN V1, LATE TRANSITION, RAD, ADELA, SSS] ABNORMAL ECG UNCONFIRMED REPORT Electronically signed by : Reji Castro MD 07/16/2024 20:38:01
--- NOTE | 2024-07-15 14:57 | HMH.PTEV ---
Physical Therapy Evaluation Rehab PT IP Evaluation Start: 07/15/24 10:21 Freq: ONCE Status: Active Protocol: Document 07/15/24 13:15 ALLISON (Rec: 07/15/24 14:56 ALLISON [id number]) Subjective/History History History Pt is a 59 y/o female who presented to [facility] on 07/14/24 s/ p recent AICD placement on presenting with AICD shocks . Per history & physical note , States that she got out of the shower today just after being shocked once. States that it almost sent her to the ground. Received 8 total shocks. Denies chest pain, shortness of breath, nausea, vomiting, syncope, or any other concerns at this time. 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 recently discharged yesterday. Admitted for further monitoring. Medical History: hypertension, hyperlipidemia, fibrillation on warfarin, mitral valve mechanical replacement, CKD, hypertension, GERD, COPD, CHF, hemolytic anemia, cardiomyopathy Subjective Subjective Pt reports she has not experienced being shocked since being hositalized, but when it happened it brought her to her knees. Pt reports she lives in a single story home with 2 FLEX without HR that she is traversing well. Pt reports she is independent with all ambulation, ADLs and driving. Pt reports she is very active in her nondenominational and stays busy. Pt reports she feels like her endurance has decreased following AICD placement on 07/11/24. Reviewed with pt to avoid strenous activities, lifting the L arm overhead or lifting/pulling. Pt currently wearing 2L NC which she states she wears at home as needed as well. Pt also reports use of a CPAP. New diagnosis of cancer in past 12 No months? Rehab PT IP Eval Objective Appearance Patient Behavior Appropriate,Cooperative Patient Orientation Place,Name,Birthday,Situation Difficulty following instructions none Speech Pattern Clear,Appropriate Ambulation Patient Able to Ambulate Yes Ambulation Observation IP General Gait Pattern Observation Wide Based Gait Ambulation Distance (feet) 80 Ambulation Assistive Device None Ambulation Ability Supervision/Stand by Balance Ability to Arise Able, uses arms to help Sitting Balance Steady, safe Standing Balance Steady, wide stance Dynamic Sitting Balance Ability Normal Dynamic Standing Balance Ability Good Transfers Bed Transfer Ability Independent Sit to Stand Bed Transfer Ability Independent ROM All Extremities PT ROM Status WFL MMT All Extremities PT MMT WFL Rehab PT IP prob,goals,plan Problems Date of Evaluation: 07/15/24 PT IP Problems Other Other Pt Problem Endurance d/t AICD placement on 07/11/24 Rehab Potential Rehab Potential Innapropriate for Skilled Therapy Discharge Plan PT Discharge Plan Pt presents at baseline for all mobility, no inpatient therapy needs at this time. Recommend home health therapy upon d/c to address endurance deficits following recent AICD placement. Eval Complexity Eval Charge Codes 16030 - Moderate Complexity PHYSICIAN CERTIFICATION: I certify the specified therapy services for Irina Costa are required, authorized, and reviewed every 30 days.
--- NOTE | 2024-07-15 14:57 | HMH.PTEV ---
Physical Therapy Evaluation Rehab PT IP Evaluation Start: 07/15/24 10:21 Freq: ONCE Status: Complete Protocol: Document 07/15/24 13:15 ALLISON (Rec: 07/15/24 14:56 ALLISON [id number]) Subjective/History History History Pt is a 59 y/o female who presented to [facility] on 07/14/24 s/ p recent AICD placement on presenting with AICD shocks . Per history & physical note , States that she got out of the shower today just after being shocked once. States that it almost sent her to the ground. Received 8 total shocks. Denies chest pain, shortness of breath, nausea, vomiting, syncope, or any other concerns at this time. 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 recently discharged yesterday. Admitted for further monitoring. Medical History: hypertension, hyperlipidemia, fibrillation on warfarin, mitral valve mechanical replacement, CKD, hypertension, GERD, COPD, CHF, hemolytic anemia, cardiomyopathy Subjective Subjective Pt reports she has not experienced being shocked since being hositalized, but when it happened it brought her to her knees. Pt reports she lives in a single story home with 2 FLEX without HR that she is traversing well. Pt reports she is independent with all ambulation, ADLs and driving. Pt reports she is very active in her muslim and stays busy. Pt reports she feels like her endurance has decreased following AICD placement on 07/11/24. Reviewed with pt to avoid strenous activities, lifting the L arm overhead or lifting/pulling. Pt currently wearing 2L NC which she states she wears at home as needed as well. Pt also reports use of a CPAP. New diagnosis of cancer in past 12 No months? Rehab PT IP Eval Objective Appearance Patient Behavior Appropriate,Cooperative Patient Orientation Place,Name,Birthday,Situation Difficulty following instructions none Speech Pattern Clear,Appropriate Ambulation Patient Able to Ambulate Yes Ambulation Observation IP General Gait Pattern Observation Wide Based Gait Ambulation Distance (feet) 80 Ambulation Assistive Device None Ambulation Ability Supervision/Stand by Balance Ability to Arise Able, uses arms to help Sitting Balance Steady, safe Standing Balance Steady, wide stance Dynamic Sitting Balance Ability Normal Dynamic Standing Balance Ability Good Transfers Bed Transfer Ability Independent Sit to Stand Bed Transfer Ability Independent ROM All Extremities PT ROM Status WFL MMT All Extremities PT MMT WFL Rehab PT IP prob,goals,plan Problems Date of Evaluation: 07/15/24 PT IP Problems Other Other Pt Problem Endurance d/t AICD placement on 07/11/24 Rehab Potential Rehab Potential Innapropriate for Skilled Therapy Discharge Plan PT Discharge Plan Pt presents at baseline for all mobility, no inpatient therapy needs at this time. Recommend home health therapy upon d/c to address endurance deficits following recent AICD placement. Eval Complexity Eval Charge Codes 75489 - Moderate Complexity PHYSICIAN CERTIFICATION: I certify the specified therapy services for Irina Costa are required, authorized, and reviewed every 30 days.
--- NOTE | 2024-07-15 15:40 | PC.NURSE ---
I spoke with the device rep regarding pt device interrogation. Roberto Carlos states he will be in soon
--- NOTE | 2024-07-15 16:28 | EXP.PN ---
Subjective *Date: 07/15/24 *Time: 16:28 Interval history: seen at bedside, patient has been having shoocks from defibrillator, last one at home before ambulance, no acute events overnight Exam Data for Last 24 hours Vital signs and Labs for Last 24 Hours: Temp Pulse Resp BP Pulse Ox O2 Del Method O2 Flow Rate 97.8 F 89 20 115/66 96 Nasal Cannula 3 07/15/24 16:00 07/15/24 16:00 07/15/24 16:00 07/15/24 16:00 07/15/24 16:00 07/15/24 16:00 07/15/24 12:00 Laboratory Results - last 24 hr 07/14/24 17:26: WBC 9.8, RBC 3.44 L, Hgb 9.0 L, Hct 30.4 L, MCV 88.3, MCH 26.3 L, MCHC 29.7 L, RDW 19.4 H, Plt Count 217, MPV 8.5, Neut % (Auto) 87.9 H, Lymph % (Auto) 3.6 L, Mathews % (Auto) 4.7, Eos % (Auto) 3.5, Baso % (Auto) 0.3, Neut # (Auto) 8.6 H, Lymph # (Auto) 0.4 L, Mathews # (Auto) 0.5, Eos # (Auto) 0.3, Baso # (Auto) 0.0, Total Counted 100, Neutrophils % (Manual) 88 H, Lymphocytes % (Manual) 4 L, Monocytes % (Manual) 5, Eosinophils % (Manual) 3, Platelet Estimate Normal, Hypochromasia 1+, APTT 37.2 H, Sodium 135 L, Potassium 4.9, Chloride 100, Carbon Dioxide 30, Anion Gap 9.9, BUN 40 H, Creatinine 1.30 H, Estimated Creat Clear 63, Estimated GFR 42 L, Est GFR ( Amer) 50 L D, Glucose 231 H, Calcium 9.5, Magnesium 1.9 D, Total Bilirubin 1.6 H, AST 26, ALT 21, Alkaline Phosphatase 94, Troponin I 0.05 H, NT-Pro-B Natriuret Pep 1670 H, Total Protein 7.3, Albumin 4.1, Globulin 3.2, Albumin/Globulin Ratio 1.3 07/14/24 17:58: Lactate 1.3 07/14/24 20:25: Troponin I 0.16 H 07/14/24 23:10: Troponin I 0.17 H 07/15/24 06:55: WBC 5.2 D, RBC 3.25 L, Hgb 8.7 L, Hct 28.5 L, MCV 87.7, MCH 26.9 L, MCHC 30.6 L, RDW 19.3 H, Plt Count 223, MPV 8.5, Neut % (Auto) 79.3, Lymph % (Auto) 7.0 L, Mathews % (Auto) 7.5, Eos % (Auto) 5.6, Baso % (Auto) 0.6, Neut # (Auto) 4.2, Lymph # (Auto) 0.4 L, Mathews # (Auto) 0.4, Eos # (Auto) 0.3, Baso # (Auto) 0.0, Sodium 137, Potassium 4.5, Chloride 100, Carbon Dioxide 32 H, Anion Gap 9.5, BUN 38 H, Creatinine 1.30 H, Estimated Creat Clear 63, Estimated GFR 42 L, Est GFR ( Amer) 50 L, Glucose 273 H, Calcium 9.4, Magnesium 2.2 D, Total Bilirubin 1.1, AST 27, ALT 14 D, Alkaline Phosphatase 85, Total Protein 6.9, Albumin 3.7, Globulin 3.2, Albumin/Globulin Ratio 1.2 07/15/24 08:30: PT 17.7 H, INR 1.66 H I & O for Last 24 hours: Intake & Output 07/12/24 07/13/24 07/14/24 07/15/24 23:59 23:59 23:59 23:59 Intake Total 1460 / 1460 Output Total Balance 1459 / 1459 Weight 87.997 kg 87.231 kg Constitutional Constitutional: no acute distress *Routine HEENT Exam Head: Present normocephalic Eye: Present EOMI and PERRL ENT: Present mucous membranes moist *Routine Neck Exam Neck: Present supple; Absent lymphadenopathy *Routine Respiratory Exam Respiratory: Present CTA bilaterally *Routine Cardiovascular Exam Cardiovascular: Present irregular rhythm *Routine Abdominal Exam Abdominal: Present soft and normoactive bowel sounds; Absent tenderness *Routine Extremities Exam Extremities: Absent cyanosis, clubbing or edema *Routine Skin Exam Skin: Present warm; Absent rash *Routine Neurological Exam Neurological: Present alert and oriented X3 Assessment and Plan *Assessment and plan (1) Non-ST elevation [place] (NSTEMI): Status: Acute Category: Medical Code(s): I21.4 - Non-ST elevation (NSTEMI) myocardial infarction (2) AICD discharge: Status: Acute Category: Medical Code(s): Z45.02 - Encounter for adjustment and management of automatic implantable cardiac defibrillator (3) Presence of biventricular AICD: Status: Acute Category: Surgical Code(s): Z95.810 - Presence of automatic (implantable) cardiac defibrillator (4) Iron deficiency anemia: Status: Acute Category: Medical Code(s): D50.9 - Iron deficiency anemia, unspecified (5) Chronic renal insufficiency, stage III (moderate): Status: Acute Category: Medical Code(s): N18.30 - Chronic kidney disease, stage 3 unspecified Plan 59-year-old female history of hypertension, hyperlipidemia, fibrillation on warfarin, mitral valve mechanical replacement, CKD, hypertension, GERD, COPD, CHF, hemolytic anemia, cardiomyopathy status post recent AICD placement on 07/11 presenting with AICD shocks.significant for nonactionable CBC. Stable CKD. Patient's initial troponin elevated at 0.05. Independent interpretation of x-ray without acute pacemaker abnormality. discussed with ED for admission. Agreed for inpatient monitoring. Plan s/p AICD placement: NSTEMI Telemetry, cardiology c/s. PRN pain meds. Cardiology consulted - await consultation trend troponin monitor for chest pain repeat labs AICD interrogation pending stable stage IV CKD: ? watch I's and O's closely during hospitalization. caution with nephrotoxic medication CHF: cont home mgmt DM: SSI, AC/HS accuchecks Pulm HTN: cont home mgmt CKD: cont home mgmt, cautious fluid management throughout hospitalization Atrial Fib: cont home mgmt GERD: cont home mgmt PPX lovenox SQ FEN: cardiac Code: Full monitor on telemetry, await cardiology eval
--- NOTE | 2024-07-15 18:43 | PC.NURSE ---
Device Rep @ patients bedside. he will speak with spot billing clerk after
[2024-07-15] MEDS: PANTOPRAZOLE 40MG TABLET 40 MG PO (20:47)
[2024-07-15] MEDS: DULOXETINE 30MG CAPSULE.DR 60 MG PO (20:47)
[2024-07-15] MEDS: SPIRONOLACTONE 25MG TABLET 25 MG PO (20:47)
[2024-07-15] MEDS: BUMETANIDE 1 MG TABLET PO (20:47)
[2024-07-15] MEDS: INSULIN GLARGINE 100 UNITS/ML 3ML FLEXPEN 10 UNIT SQ (20:51)
[2024-07-15 21:09] LABS: POC Glucose,Bedside 426 (70-110)
[2024-07-16] VITALS (8 sets, daily range): BP systolic 106–150; BP diastolic 61–85; PULSE 80–100; RESP 16–19; TEMP 36.3–37.1; O2SAT 92–99; BMI 32.8
--- NOTE | 2024-07-16 04:11 | PC.NURSE ---
59 yo female pt is A/O. Pacer/defib rep present with pt at the beginning of the shift. Pt reports that the device did not malfunction and saved my life . No new orders resulting from rep's visit and report to Manager Msw. She has slept well during shift. 02 on at 2 liters continuous. She has been able to ambulate to BR with supervision.
[2024-07-16] MEDS: LEVOTHYROXINE 25 MCG PO (06:17)
[2024-07-16] MEDS: METOPROLOL SUCCINATE 100 MG PO (08:21)
[2024-07-16] MEDS: BUMETANIDE 1 MG TABLET 2 MG PO (08:21)
[2024-07-16] MEDS: OXYCODONE 10MG W/APAP 325MG TABLET 1 EACH PO ×2 (08:21→20:28)
[2024-07-16] MEDS: SPIRONOLACTONE 25MG TABLET 50 MG PO (08:21)
[2024-07-16] MEDS: CALCITRIOL 0.25 MCG PO (08:21)
[2024-07-16] MEDS: ASPIRIN EC 81MG TABLET 81 MG PO (08:21)
[2024-07-16] MEDS: POTASSIUM CHLORIDE 20 MEQ PO (08:21)
[2024-07-16] MEDS: ALPRAZolam 0.5MG TABLET 0.5 MG PO ×2 (08:22→17:57)
[2024-07-16 08:59] LABS: INR 1.88 (0.9-1.1); Prothrombin Time 19.8 seconds (10.1-12.5)
--- NOTE | 2024-07-16 09:00 | PC.NURSE ---
Addendum entered by Cady Serrano RN 07/16/24 14:04: Roberto Carlos called back to say pacemaker report showed pacemaker is working perfectly. Original Note: Roberto Carlos (pacemaker rep) called and requested pt to send over pacemaker report via krysta on her phone.
[2024-07-16] MEDS: ENOXAPARIN 100MG/ML SYRINGE 90 MG SQ ×2 (10:47→21:27)
[2024-07-16] MEDS: WARFARIN 2MG TABLET 4 MG PO (10:48)
[2024-07-16 12:06] LABS: POC Glucose,Bedside 388 (70-110)
[2024-07-16] MEDS: humaLOG 100 UNITS/ML 10ML VIAL (SSI) SQ ×3 (12:07→20:37)
--- NOTE | 2024-07-16 16:22 | P.PN_ITS ---
Subjective *Date: 07/16/24 *Time: 16:22 Interval history: seen at bedside, no shocks since admission to the hospital, patient was having shocks from defibrillator at home lying in bed comfortable, denied CP, SOB, N/V Exam Data for Last 24 hours Vital signs and Labs for Last 24 Hours: Temp Pulse Resp BP Pulse Ox O2 Del Method O2 Flow Rate 97.9 F 90 19 150/85 H 95 Nasal Cannula 2 07/16/24 12:00 07/16/24 12:00 07/16/24 12:00 07/16/24 12:00 07/16/24 08:00 07/16/24 13:00 07/16/24 13:00 Laboratory Results - last 24 hr 07/15/24 20:58: POC Glucose 426 H* 07/16/24 08:35: PT 19.8 H, INR 1.88 H 07/16/24 11:59: POC Glucose 388 H* I & O for Last 24 hours: Intake & Output 07/13/24 07/14/24 07/15/24 07/16/24 23:59 23:59 23:59 23:59 Intake Total 1730 / 1730 680 / 680 Output Total 0 / 0 Balance 1729 / 1729 680 / 680 Weight 87.997 kg 87.231 kg 87.231 kg Constitutional Constitutional: no acute distress *Routine HEENT Exam Head: Present normocephalic Eye: Present EOMI and PERRL ENT: Present mucous membranes moist *Routine Neck Exam Neck: Present supple; Absent lymphadenopathy *Routine Respiratory Exam Respiratory: Present CTA bilaterally *Routine Cardiovascular Exam Cardiovascular: Present irregular rhythm *Routine Abdominal Exam Abdominal: Present soft and normoactive bowel sounds; Absent tenderness *Routine Extremities Exam Extremities: Absent cyanosis, clubbing or edema *Routine Skin Exam Skin: Present warm; Absent rash *Routine Neurological Exam Neurological: Present alert and oriented X3 Assessment and Plan *Assessment and plan (1) Non-ST elevation [place] (NSTEMI): Status: Acute Category: Medical Code(s): I21.4 - Non-ST elevation (NSTEMI) myocardial infarction (2) AICD discharge: Status: Acute Category: Medical Code(s): Z45.02 - Encounter for adjustment and management of automatic implantable cardiac defibrillator (3) Presence of biventricular AICD: Status: Acute Category: Surgical Code(s): Z95.810 - Presence of automatic (implantable) cardiac defibrillator (4) Iron deficiency anemia: Status: Acute Category: Medical Code(s): D50.9 - Iron deficiency anemia, unspecified (5) Chronic renal insufficiency, stage III (moderate): Status: Acute Category: Medical Code(s): N18.30 - Chronic kidney disease, stage 3 unspecified Plan 59-year-old female history of hypertension, hyperlipidemia, fibrillation on warfarin, mitral valve mechanical replacement, CKD, hypertension, GERD, COPD, CHF, hemolytic anemia, cardiomyopathy status post recent AICD placement on 07/11 presenting with AICD shocks.significant for nonactionable CBC. Stable CKD. Patient's initial troponin elevated at 0.05. Independent interpretation of x- ray without acute pacemaker abnormality. s/p AICD placement: NSTEMI Telemetry AICD interogation completed, patient was appropriately shocked and and AICD is working as expected per report, patient needs to be evaluated by cardiology for any medication changes trend troponin monitor for chest pain stable stage IV CKD: ? watch I's and O's closely during hospitalization. caution with nephrotoxic medication CHF: cont home mgmt DM: SSI, AC/HS accuchecks Pulm HTN: cont home mgmt CKD: cont home mgmt, cautious fluid management throughout hospitalization Atrial Fib: cont home mgmt GERD: cont home mgmt PPX lovenox SQ FEN: cardiac Code: Full monitor on telemetry, await cardiology eval, likely dc tomorrow
--- NOTE | 2024-07-16 16:25 | EXP.HP ---
History of Present Illness *Admission Date: 07/14/24 *History of present illness: This is a 59-year-old female history of hypertension, hyperlipidemia, fibrillation on warfarin, mitral valve mechanical replacement, CKD, hypertension, GERD, COPD, CHF, hemolytic anemia, cardiomyopathy status post recent AICD placement on 07/11 presenting with AICD shocks. States that she got out of the shower today just after being shocked once. States that it almost sent her to the ground. Received 8 total shocks. Denies chest pain, shortness of breath, nausea, vomiting, syncope, or any other concerns at this time. Patient underwent cardioversion for atrial fibrillation ambulation before placement of AICD and cardiac Marketing Underwriter. recently discharged yesterday. Admitted for further monitoring. [facility] Disclaimer: The information contained in this section may have been updated after the patient was seen, as this information can be updated by other users. Medical History (Updated 07/14/24 @ 21:02 by Paolo Johnson MD) Third degree heart block Junctional escape rhythm Current use of skilled nursing anticoagulation Afib HFrEF (heart failure with reduced ejection fraction) Partial tear of tendon CHF (NYHA class III, ACC/AHA stage C) Atrial fibrillation, chronic COPD exacerbation CHF exacerbation Anemia Systolic CHF Typical angina Dyspnea Rib fracture Blood transfusion reaction Autoimmune hemolytic anemia Arthritis Hernia Sinus problem Rheumatic heart disease Hypothyroidism Polyarthralgia Pulmonary edema HLD (hyperlipidemia) HTN (hypertension) CAD (coronary artery disease) DM type 2 (diabetes mellitus, type 2) DVT (deep venous thrombosis) Cardiomyopathy Arrhythmia Liver disease Thyroid disease Valvular heart disease Hypertension Hyperlipidemia GERD (gastroesophageal reflux disease) COPD (chronic obstructive pulmonary disease) Class 1 obesity CKD (chronic kidney disease) stage 3, GFR 30-59 ml/min Acute on chronic HFrEF (heart failure with reduced ejection fraction) Coronary artery disease Congestive heart failure, NYHA class III NYHA class 3 acute on chronic systolic heart failure Diabetes mellitus Hypertensive heart disease CHF (congestive heart failure) Diastolic heart failure Tricuspid valve regurgitation 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 current use of anticoagulants with INR goal of 2.5-3.5 Surgical History (Updated 07/12/24 @ 11:46 by Celina Back APRN) Presence of biventricular AICD History of mitral valve replacement with mechanical valve Mitral valve replaced History of colon resection H/O tubal ligation History of angioplasty History of renal stent History of ureteroscopy History of tubal ligation History of hernia repair History of cardiac catheterization Family History Other Breast cancer COPD (chronic obstructive pulmonary disease) Colon cancer Family history of acute heart failure Family history of hyperlipidemia Family history of hypertension Family history of myocardial infarction Hypertension Stroke Social History (Updated 07/14/24 @ 22:12 by Irma Jaimes RN) Smoking Status: Former smoker tobacco type: cigarettes packs per day: 1 smoking status stop date: 01/09/2006 quit status: quit date established second hand exposure: Yes alcohol intake: never substance use type: denies use current occupational status: retired and disabled Travel in the last 8 weeks: None adopted: No caregiver/support person: No foster care: No household members: significant other housing: house lives independently: Yes marital status: life partner education level: college service: No senior care: No current occupational exposures/hazards: No sexually active: Yes how many partners: 1 are you practicing safe sex: Yes diet: diabetic well-balanced diet: about half the time caffeine: No eating out: rarely or never during the past year weight has: remained stable bhavya/caodaism: Mandaen special bhavya needs: No agree to transfusion: Yes helmet use: No water heater temp set < 120 deg: Yes working smoke detector in home: Yes fire extinguisher in home: Yes carbon monox detector in home: Yes firearms in home: No do you feel safe at home: Yes victim of physical abuse: No victim of emotional abuse: No victim of sexual abuse: No would you like helpful sources: No Meds Home Medications and Allergies Home Medications ?Medication ?Instructions ?Recorded ?Confirmed ?Type aspirin 81 mg tablet,delayed 81 mg PO DAILY 12/01/17 07/14/24 History release (Adult Low Dose Aspirin) oxycodone-acetaminophen 10 mg-325 1 tab PO QID 05/23/18 07/14/24 History mg tablet (Percocet) alprazolam 0.5 mg tablet (Xanax) 0.5 mg PO TID 11/29/19 07/14/24 History levothyroxine 25 mcg tablet 25 mcg PO DAILY 06/05/21 07/14/24 History insulin glargine 100 60 units SQ DAILY 02/22/22 07/14/24 History unit-lixisenatide 33 mcg/mL subcutaneous pen febuxostat 40 mg tablet 40 mg PO DAILY 02/09/23 07/14/24 History potassium chloride 20 mEq 20 meq PO DAILY 04/15/23 07/14/24 History tablet,extended release(part/cryst) calcitriol 0.25 mcg capsule 0.25 mcg PO DAILY 10/30/23 07/14/24 History warfarin 4 mg tablet 4 mg PO SUTUWETHSA 10/31/23 07/14/24 History warfarin 4 mg tablet 2 mg PO MOFR 11/25/23 07/14/24 History duloxetine 60 mg capsule,delayed 60 mg PO HS 03/06/24 07/14/24 History release dexlansoprazole 30 mg 30 mg PO DAILY 03/29/24 07/14/24 History capsule,biphase delayed release (Dexilant) bumetanide 2 mg tablet 1 mg PO HS 06/15/24 07/14/24 History metolazone 2.5 mg tablet 2.5 mg PO DAILYP PRN edema 06/15/24 07/14/24 History spironolactone 50 mg tablet 25 mg PO HS 06/15/24 07/14/24 History insulin glargine 100 unit/mL (3 10 unit SQ HS 06/27/24 07/14/24 History mL) subcutaneous pen (Lantus Solostar U-100 Insulin) metoprolol succinate 100 mg 100 mg PO BID 06/27/24 07/14/24 History tablet,extended release 24 hr bumetanide 2 mg tablet 2 mg PO DAILY 07/11/24 07/14/24 History spironolactone 50 mg tablet 50 mg PO DAILY 07/11/24 07/14/24 History enoxaparin 100 mg/mL subcutaneous 90 mg (0.9 mL) SQ Q12H 4 days #7.2 07/13/24 07/14/24 Rx syringe (Lovenox) mL New Prescriptions to Start Prescriptions: Allergies Allergy/AdvReac Type Severity Reaction Status Date / Time codeine [CODEINE] Allergy Unknown nausea, Verified 07/07/24 13:08 swelling Corticosteroids Allergy Unknown Unknown Verified 07/07/24 13:08 (Glucocorticoids) allergy [CORTICOSTEROIDS reaction (GLUCOCORTICOIDS)] NSAIDS (Non-Steroidal Allergy Unknown Other Verified 07/07/24 13:08 Anti-Inflamma rosuvastatin [From CRESTOR] Allergy Unknown Unknown Verified 07/07/24 13:08 allergy reaction theophylline [From DAVID-DUR] Allergy Unknown Unknown Verified 07/07/24 13:08 allergy reaction Iodinated Contrast Media AdvReac Severe shuts Verified 07/07/24 13:08 [IODINATED CONTRAST- ORAL kidneys AND IV DYE] down and bleeding buprenorphine [From BUPRENEX] AdvReac Intermediate Nausea Verified 07/07/24 13:08 levofloxacin [From Levaquin] AdvReac Verified 07/07/24 13:08 lisinopril AdvReac Cough Verified 07/07/24 13:08 prednisone AdvReac Unknown Verified 07/07/24 13:08 allergy reaction sacubitril [From Entresto] AdvReac Hypotension Verified 07/07/24 13:08 valsartan [From Entresto] AdvReac Hypotension Verified 07/07/24 13:08 Exam Data for Last 24 hours Vital signs and Labs for Last 24 Hours: Temp Pulse Resp BP Pulse Ox O2 Del Method O2 Flow Rate 97.9 F 90 19 150/85 H 95 Nasal Cannula 2 07/16/24 12:00 07/16/24 12:00 07/16/24 12:00 07/16/24 12:00 07/16/24 08:00 07/16/24 13:00 07/16/24 13:00 Laboratory Results - last 24 hr 07/15/24 20:58: POC Glucose 426 H* 07/16/24 08:35: PT 19.8 H, INR 1.88 H 07/16/24 11:59: POC Glucose 388 H* I & O for Last 24 hours: Intake & Output 07/13/24 07/14/24 07/15/24 07/16/24 23:59 23:59 23:59 23:59 Intake Total 1730 / 1730 680 / 680 Output Total 0 / 0 Balance 1729 / 1729 680 / 680 Weight 87.997 kg 87.231 kg 87.231 kg Assessment and Plan *Assessment and plan (1) Non-ST elevation [place] (NSTEMI): Status: Acute Category: Medical Code(s): I21.4 - Non-ST elevation (NSTEMI) myocardial infarction (2) AICD discharge: Status: Acute Category: Medical Code(s): Z45.02 - Encounter for adjustment and management of automatic implantable cardiac defibrillator (3) Presence of biventricular AICD: Status: Acute Category: Surgical Code(s): Z95.810 - Presence of automatic (implantable) cardiac defibrillator (4) Iron deficiency anemia: Status: Acute Category: Medical Code(s): D50.9 - Iron deficiency anemia, unspecified (5) Chronic renal insufficiency, stage III (moderate): Status: Acute Category: Medical Code(s): N18.30 - Chronic kidney disease, stage 3 unspecified Plan 59-year-old female history of hypertension, hyperlipidemia, fibrillation on warfarin, mitral valve mechanical replacement, CKD, hypertension, GERD, COPD, CHF, hemolytic anemia, cardiomyopathy status post recent AICD placement on 07/11 presenting with AICD shocks.significant for nonactionable CBC. Stable CKD. Patient's initial troponin elevated at 0.05. Independent interpretation of x-ray without acute pacemaker abnormality. s/p AICD placement: NSTEMI Telemetry AICD interogation completed, patient was appropriately shocked and and AICD is working as expected per report, patient needs to be evaluated by cardiology for any medication changes trend troponin monitor for chest pain stable stage IV CKD: ? watch I's and O's closely during hospitalization. caution with nephrotoxic medication CHF: cont home mgmt DM: SSI, AC/HS accuchecks Pulm HTN: cont home mgmt CKD: cont home mgmt, cautious fluid management throughout hospitalization Atrial Fib: cont home mgmt GERD: cont home mgmt PPX lovenox SQ FEN: cardiac Code: Full monitor on telemetry, await cardiology eval, likely dc tomorrow
[2024-07-16 16:56] LABS: POC Glucose,Bedside 325 (70-110)
--- NOTE | 2024-07-16 17:26 | PC.NURSE ---
Pt. clinical research monitor showing AFib with rate of 135. EKG obtained. EKG shows AFib RVR with a rate of 103. Dr. Connor notified, orders to move to step-down and start cardizem drip.
--- NOTE | 2024-07-16 17:50 | PC.NURSE ---
Pt. moved to 214 and placed on monitor. Pt. daughter at bedside. Discussed moving to step-down for closer cardiac monitoring.
[2024-07-16] MEDS: dilTIAZem HCL 100 MG in 0.9 % SODIUM CHLORIDE 100 ML IV (17:52)
--- NOTE | 2024-07-16 17:53 | EXP.CARD.CON ---
History of Present Illness History of Present Illness Consult date: 07/16/24 Requesting physician: Beata Connor Chief complaint: AICD shock History of present illness: This is a 59-year-old white female with past medical history of chronic A-fib, mechanical mitral valve replacement, chronic kidney disease, nonischemic heart failure with reduced ejection fraction, hypertension, hyperlipidemia and anemia who presented to emergency department with complaints of new AICD shocks x 8. Patient recently had AICD placed due to ejection fraction of 33.7. Patient has a history of normal Cors in 2017. Patient underwent a cardiac MRI which revealed an ejection fraction of 33.7. Labs are as follow: WBC 5.2, hemoglobin 8.7, sodium 137, potassium 4.5, creatinine 1.3, magnesium 2.2, troponin 0.05 trending up to 0.17. On exam patient endorses increased anxiety regarding shocks, and chest pain. Device was interrogated today which revealed patient had been shocked a total of 6 for 23 episodes of high V rates ranging from 180-240 with 14 episodes of ATP noted. Of note patient's beta-melany had been held during recent hospitalization and she had only recently restarted 1 dose of metoprolol succinate 100 mg. Patient has had no further episodes of shocks since being admitted to the hospital and metoprolol has been increased to 100 mg p.o. twice daily. [facility] Disclaimer: The information contained in this section may have been updated after the patient was seen, as this information can be updated by other users. 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 Afib HFrEF (heart failure with reduced ejection fraction) Partial tear of tendon CHF (NYHA class III, ACC/AHA stage C) Atrial fibrillation, chronic COPD exacerbation CHF exacerbation Anemia Systolic CHF Typical angina Dyspnea Rib fracture Blood transfusion reaction Autoimmune hemolytic anemia Arthritis Hernia Sinus problem Rheumatic heart disease Hypothyroidism Polyarthralgia Pulmonary edema HLD (hyperlipidemia) HTN (hypertension) CAD (coronary artery disease) DM type 2 (diabetes mellitus, type 2) DVT (deep venous thrombosis) Cardiomyopathy Arrhythmia Liver disease Thyroid disease Valvular heart disease Hypertension Hyperlipidemia GERD (gastroesophageal reflux disease) COPD (chronic obstructive pulmonary disease) Class 1 obesity CKD (chronic kidney disease) stage 3, GFR 30-59 ml/min Acute on chronic HFrEF (heart failure with reduced ejection fraction) Coronary artery disease Congestive heart failure, NYHA class III NYHA class 3 acute on chronic systolic heart failure Diabetes mellitus Hypertensive heart disease CHF (congestive heart failure) Diastolic heart failure Tricuspid valve regurgitation 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 with INR goal of 2.5-3.5 Surgical History (Updated 07/17/24 @ 00:00 by Martín Dooley) Presence of biventricular AICD History of mitral valve replacement with mechanical valve Mitral valve replaced History of colon resection H/O tubal ligation History of angioplasty History of renal stent History of ureteroscopy History of tubal ligation History of hernia repair History of cardiac catheterization Family History Other Breast cancer COPD (chronic obstructive pulmonary disease) Colon cancer Family history of acute heart failure Family history of hyperlipidemia Family history of hypertension Family history of myocardial infarction Hypertension Stroke Social History (Updated 07/14/24 @ 22:12 by Irma Jaimes RN) Smoking Status: Former smoker tobacco type: cigarettes packs per day: 1 smoking status stop date: 01/09/2006 quit status: quit date established second hand exposure: Yes alcohol intake: never substance use type: denies use current occupational status: retired and disabled Travel in the last 8 weeks: None adopted: No caregiver/support person: No foster care: No household members: significant other housing: house lives independently: Yes marital status: life partner education level: college service: No longterm: No current occupational exposures/hazards: No sexually active: Yes how many partners: 1 are you practicing safe sex: Yes diet: diabetic well-balanced diet: about half the time caffeine: No eating out: rarely or never during the past year weight has: remained stable bhavya/confucianist: [employer] special bhavya needs: No agree to transfusion: Yes helmet use: No water heater temp set < 120 deg: Yes working smoke detector in home: Yes fire extinguisher in home: Yes carbon monox detector in home: Yes firearms in home: No do you feel safe at home: Yes victim of physical abuse: No victim of emotional abuse: No victim of sexual abuse: No would you like helpful sources: No Review of Systems Review of Systems Review of systems:: pertinent systems reviewed and negative unless documented below Constitutional Constitutional: Reports system reviewed and no additional complaints, except as documented *Cardiovascular Cardiovascular: Reports system reviewed and no additional complaints, except as documented, Reports chest pain and Reports dyspnea *Respiratory Respiratory: Reports system reviewed and no additional complaints, except as documented and Reports dyspnea *Gastrointestinal Gastrointestinal: Reports system reviewed and no additional complaints, except as documented *Neurologic Neurologic: Reports system reviewed and no additional complaints, except as documented and Denies confusion Psychiatric Psychiatric: Reports system reviewed and no additional complaints, except as documented and Denies confusion Exam Data for Last 24 hours Vital signs and Labs for Last 24 Hours: Temp Pulse Resp BP Pulse Ox O2 Del Method O2 Flow Rate 97.7 F 98 H 18 114/66 92 L Nasal Cannula 2 07/16/24 16:00 07/16/24 16:00 07/16/24 16:00 07/16/24 16:00 07/16/24 16:00 07/16/24 17:00 07/16/24 17:00 Laboratory Results - last 24 hr 07/15/24 20:58: POC Glucose 426 H* 07/16/24 08:35: PT 19.8 H, INR 1.88 H 07/16/24 11:59: POC Glucose 388 H* 07/16/24 16:46: POC Glucose 325 H* I & O for Last 24 hours: Intake & Output 07/13/24 07/14/24 07/15/24 07/16/24 23:59 23:59 23:59 23:59 Intake Total 1730 / 1730 680 / 680 Output Total 0 / 0 Balance 1729 / 1729 680 / 680 Weight 194 lb 192 lb 5 oz 192 lb 4.983 oz Constitutional Constitutional: no acute distress *Routine Respiratory Exam Respiratory: Present CTA bilaterally and symmetric chest movement *Routine Cardiovascular Exam Cardiovascular: Present Normal S1 and Normal S2 Comments: A-fib *Routine Abdominal Exam Abdominal: Present soft and normoactive bowel sounds; Absent tenderness *Routine Extremities Exam Extremities: Present full ROM and normal capillary refill; Absent edema *Routine Skin Exam Skin: Present intact, dry and warm Detailed Neck Exam: Thyroids Thyroid: Absent bruit Meds Home Medications and Allergies Home Medications ?Medication ?Instructions ?Recorded ?Confirmed ?Type aspirin 81 mg tablet,delayed 81 mg PO DAILY 12/01/17 07/14/24 History release (Adult Low Dose Aspirin) oxycodone-acetaminophen 10 mg-325 1 tab PO QID 05/23/18 07/14/24 History mg tablet (Percocet) alprazolam 0.5 mg tablet (Xanax) 0.5 mg PO TID 11/29/19 07/14/24 History levothyroxine 25 mcg tablet 25 mcg PO DAILY 06/05/21 07/14/24 History insulin glargine 100 60 units SQ DAILY 02/22/22 07/14/24 History unit-lixisenatide 33 mcg/mL subcutaneous pen febuxostat 40 mg tablet 40 mg PO DAILY 02/09/23 07/14/24 History potassium chloride 20 mEq 20 meq PO DAILY 04/15/23 07/14/24 History tablet,extended release(part/cryst) calcitriol 0.25 mcg capsule 0.25 mcg PO DAILY 10/30/23 07/14/24 History warfarin 4 mg tablet 4 mg PO SUTUWETHSA 10/31/23 07/14/24 History warfarin 4 mg tablet 2 mg PO MOFR 11/25/23 07/14/24 History duloxetine 60 mg capsule,delayed 60 mg PO HS 03/06/24 07/14/24 History release dexlansoprazole 30 mg 30 mg PO DAILY 03/29/24 07/14/24 History capsule,biphase delayed release (Dexilant) bumetanide 2 mg tablet 1 mg PO HS 06/15/24 07/14/24 History metolazone 2.5 mg tablet 2.5 mg PO DAILYP PRN edema 06/15/24 07/14/24 History spironolactone 50 mg tablet 25 mg PO HS 06/15/24 07/14/24 History insulin glargine 100 unit/mL (3 10 unit SQ HS 06/27/24 07/14/24 History mL) subcutaneous pen (Lantus Solostar U-100 Insulin) metoprolol succinate 100 mg 100 mg PO BID 06/27/24 07/14/24 History tablet,extended release 24 hr bumetanide 2 mg tablet 2 mg PO DAILY 07/11/24 07/14/24 History spironolactone 50 mg tablet 50 mg PO DAILY 07/11/24 07/14/24 History enoxaparin 100 mg/mL subcutaneous 90 mg (0.9 mL) SQ Q12H 4 days #7.2 07/13/24 07/14/24 Rx syringe (Lovenox) mL New Prescriptions to Start Prescriptions: Allergies Allergy/AdvReac Type Severity Reaction Status Date / Time codeine [CODEINE] Allergy Unknown nausea, Verified 07/07/24 13:08 swelling Corticosteroids Allergy Unknown Unknown Verified 07/07/24 13:08 (Glucocorticoids) allergy [CORTICOSTEROIDS reaction (GLUCOCORTICOIDS)] NSAIDS (Non-Steroidal Allergy Unknown Other Verified 07/07/24 13:08 Anti-Inflamma rosuvastatin [From CRESTOR] Allergy Unknown Unknown Verified 07/07/24 13:08 allergy reaction theophylline [From DAVID-DUR] Allergy Unknown Unknown Verified 07/07/24 13:08 allergy reaction Iodinated Contrast Media AdvReac Severe shuts Verified 07/07/24 13:08 [IODINATED CONTRAST- ORAL kidneys AND IV DYE] down and bleeding buprenorphine [From BUPRENEX] AdvReac Intermediate Nausea Verified 07/07/24 13:08 levofloxacin [From Levaquin] AdvReac Verified 07/07/24 13:08 lisinopril AdvReac Cough Verified 07/07/24 13:08 prednisone AdvReac Unknown Verified 07/07/24 13:08 allergy reaction sacubitril [From Entresto] AdvReac Hypotension Verified 07/07/24 13:08 valsartan [From Entresto] AdvReac Hypotension Verified 07/07/24 13:08 Assessment and Plan *Assessment and plan (1) AICD discharge: Status: Acute Category: Medical Code(s): Z45.02 - Encounter for adjustment and management of automatic implantable cardiac defibrillator (2) Non-ST elevation UT (NSTEMI): Status: Acute Category: Medical Code(s): I21.4 - Non-ST elevation (NSTEMI) myocardial infarction (3) Presence of biventricular AICD: Status: Acute Category: Surgical Code(s): Z95.810 - Presence of automatic (implantable) cardiac defibrillator (4) Chronic renal insufficiency, stage III (moderate): Status: Acute Category: Medical Code(s): N18.30 - Chronic kidney disease, stage 3 unspecified (5) Iron deficiency anemia: Status: Acute Category: Medical Code(s): D50.9 - Iron deficiency anemia, unspecified (6) History of mitral valve replacement with mechanical valve: Status: Acute Category: Surgical Code(s): Z95.2 - Presence of prosthetic heart valve (7) HFrEF (heart failure with reduced ejection fraction): Status: Acute Category: Medical Code(s): I50.20 - Unspecified systolic (congestive) heart failure Plan History of nonischemic cardiomyopathy Chronic HFrEF s/p AICD AICD shocks for high v rates 180-240 Chronic A-fib Mechanical mitral valve replacement AICD recently placed for ejection fraction of 33.7 on cardiac MRI Device interrogation: Patient received 6 shocks, 23 episodes of high V rates ranging from 180-240 with 14 ATP Resume beta-melany- Toprol 100 mg p.o. twice daily On Coumadin Continue Bumex 2 mg p.o. in the morning and 1 mg p.o. in the evening as well as Aldactone 50 mg p.o. in the a.m. and 25 mg p.o. in the p.m. No ARB or Arni due to chronic kidney disease Consider addition of Jardiance later Acute myocardial injury likely secondary to demand Continue aspirin 81 mg p.o. daily Patient had normal Cors in 2016, likely normal myoview 01/2023 Troponin 0.05- 0.17 EKG negative for acute ischemic changes Chronic anemia Hemoglobin stable at 8.7 continue to monitor Chronic kidney disease Creatinine 1.3-stable CV summary 07/16/2024: No diltiazem due to low ejection fraction. Continue to treat A-fib and high V rates with Beta blockers. CV meds Aspirin 81 mg p.o. daily Bumex 2 mg p.o. in the morning and 1 mg p.o. in the evening Toprol 100 mg p.o. twice daily Aldactone 50 mg p.o. in the a.m. and 25 p.o. in the p.m. Coumadin Consider Jardiance later Metolazone 2.5mg po as needed No ARNI due to chronic kidney disease
--- NOTE | 2024-07-16 18:00 | PC.NURSE ---
Sandra Clemons APRN at bedside. Orders to stop Cardizem drip due to EF of 34%. Orders for Metoprolol 100 mg now. Continue to keep pt. in [place] for cardiac monitoring.
[2024-07-16] MEDS: METOPROLOL SUCCINATE XL 100MG TABLET 100 MG PO (18:05)
[2024-07-16 19:31] LABS: Thyroid Stimulating Hormone 6.97 uIU/mL (0.465-4.68)
[2024-07-16] MEDS: BUMETANIDE 1 MG TABLET PO (20:27)
[2024-07-16] MEDS: SPIRONOLACTONE 25MG TABLET 25 MG PO (20:28)
[2024-07-16] MEDS: PANTOPRAZOLE 40MG TABLET 40 MG PO (20:29)
[2024-07-16] MEDS: DULOXETINE 30MG CAPSULE.DR 60 MG PO (20:29)
[2024-07-16] MEDS: INSULIN GLARGINE 100 UNITS/ML 3ML FLEXPEN 15 UNIT SQ (20:31)
[2024-07-16 20:41] LABS: POC Glucose,Bedside 240 (70-110)
[2024-07-16] MEDS: IPRATROPIUM/ALBUTEROL 3 ML NEB IH (21:11)
[2024-07-17] VITALS (9 sets, daily range): BP systolic 94–141; BP diastolic 61–76; PULSE 79–96; RESP 12–20; TEMP 36.4–36.9; O2SAT 95–97; BMI 32.8
--- NOTE | 2024-07-17 | PC.NURSE ---
Patient's monitoring analyst showed multiple PVC's, EKG was ordered and revealed uncertain irregular rhythm. HR 86. Anthony, FULFILLMENT REPRESENTATIVE was shown EKG, no new orders. Patient denies chest pain at this time.
[2024-07-17] MEDS: ACETAMINOPHEN 325MG TAB 650 MG PO (04:10)
[2024-07-17] MEDS: humaLOG 100 UNITS/ML 10ML VIAL (SSI) SQ ×2 (05:45→11:50)
[2024-07-17 06:33] LABS: Eosinophils # 0.4 K/mm3 (0.0-0.4); Eosinophils % 8.8 % (0.1-12.0); Hematocrit 29.8 % (37.0-47.0); Hemoglobin 8.8 g/dL (12.2-16.2); Lymphocytes # 0.6 K/mm3 (0.7-4.5); Lymphocytes % 13.2 % (10-50); Mean Corpuscular HGB Conc 29.4 g/dL (31.8-35.4); Mean Corpuscular Hemoglobin 26.1 pg (27.0-31.2); Mean Corpuscular Volume 88.8 fl (81-99); Mean Platelet Volume 8.3 fl (7.4-10.4); Monocytes # 0.3 K/mm3 (0.1-1.0); Neutrophils # 3.2 K/mm3 (1.8-7.8); Platelet Count 260 K/mm3 (142-424); Red Blood Count 3.36 M/mm3 (4.20-5.40); Red Cell Distribution Width 19.4 % (11.5-17.5); White Blood Count 4.6 K/mm3 (4.8-10.8)
[2024-07-17 06:34] LABS: Chloride 96 mmol/L (98-107); Sodium 135 mmol/L (136-145)
[2024-07-17 06:35] LABS: Potassium 4.9 mmoL/L (3.5-5.1)
[2024-07-17 06:38] LABS: Anion Gap 9.9 mEq/L (5-15); Blood Urea Nitrogen 38 mg/dl (7-17); Calcium 9.1 mg/dl (8.4-10.2); Carbon Dioxide 34 mmol/L (22.0-30.0); Creatinine Clearance Estimated 63 mL/min (50-200); Estimated Glomerular Filt Rate 42 ml/min (>60); GFR (African American) 50 ML/MIN (>60); Glucose 216 mg/dl (74-100)
[2024-07-17] MEDS: LEVOTHYROXINE 25 MCG PO (06:43)
--- NOTE | 2024-07-17 06:56 | PC.NURSE ---
Patient remains A/O x4, slept well this shift. Patient is on 2L O2 with sats >90%. Patient c/o of pain in lower back x1, medication per MAR with relief. Patient has ambulated to bathroom with stand by assist with no issues. Call light within reach.
[2024-07-17] MEDS: BUMETANIDE 1 MG TABLET 2 MG PO (08:40)
[2024-07-17] MEDS: ASPIRIN EC 81MG TABLET 81 MG PO (08:40)
[2024-07-17] MEDS: METOPROLOL SUCCINATE XL 100MG TABLET 100 MG PO (08:42)
[2024-07-17] MEDS: OXYCODONE 10MG W/APAP 325MG TABLET 1 EACH PO (08:44)
[2024-07-17] MEDS: CALCITRIOL 0.25 MCG PO (08:44)
[2024-07-17] MEDS: POTASSIUM CHLORIDE 20 MEQ PO (08:44)
[2024-07-17] MEDS: ALPRAZolam 0.5MG TABLET 0.5 MG PO ×2 (08:44→12:35)
[2024-07-17] MEDS: SPIRONOLACTONE 25MG TABLET 50 MG PO (08:46)
[2024-07-17 09:10] LABS: INR 2.02 (0.9-1.1); Prothrombin Time 21.1 seconds (10.1-12.5)
--- NOTE | 2024-07-17 10:31 | HMH.OTEV ---
OT Inpatient Evaluation Rehab OT IP Evaluation Start: 07/15/24 10:21 Freq: ONCE Status: Active Protocol: Document 07/17/24 09:52 PEBBLES (Rec: 07/17/24 10:31 [email or web address] [id number]) Rehab OT IP Assessment Subjective History This is a 59-year-old female history of hypertension, hyperlipidemia, fibrillation on warfarin, mitral valve mechanical replacement, CKD, hypertension, GERD, COPD, CHF, hemolytic anemia, cardiomyopathy status post recent AICD placement on 07/11 presenting with AICD shocks. States that she got out of the shower today just after being shocked once. States that it almost sent her to the ground . Received 8 total shocks. Denies chest pain, shortness of breath, nausea, vomiting, syncope, or any other concerns at this time. 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 recently discharged yesterday. Admitted for further monitoring. I can get up. Patient lives alone in 1 story apartment. on the 1st floor. Independent with ADLs and fx'l mobility prior to hospitalization. Subjective Analysis Patient's ADL safety, bed mobility and transfers independently. No LOB noted. Patient able to maneuver within enviornment ~50ft. 02 decreased to 88%. After 02 donned with recovery <30 secs. Left Patient sitting upright in bed with needs met and vitals stable. Objective Patient Orientation Person,Name,Age,Birthday,Year Right Upper Extremity Gross ROM WFL Left Upper Extremity Gross ROM WFL Bed Mobility bed mobility - supine/sit Assist Level Independent Transfer Training Sit/Stand/Pivot Transfer Assist Level Independent Chair Transfer Ability Independent Chair Transfer Technique Sit to/from Ambulatory Chair Transfer Assistive Devices None Rehab OT IP prob,goals,plan Problems Date of Evaluation: 07/17/24 Rehab Potential Rehab Potential Innapropriate for Skilled Therapy Discharge Plan OT Discharge Plan Patient appears to be at baseline. Independent with ADLS and fx'l mobility. 02 at home on 2L as PRN. Educated Patient that nursing staff can assist with patient if wanting to ambulate in hallway . Eval Complexity Eval Charge Codes 68445 - Low Complexity PHYSICIAN CERTIFICATION: I certify the specified therapy services for Irina Costa are required, authorized, and reviewed every 30 days.
[2024-07-17] MEDS: ENOXAPARIN 100MG/ML SYRINGE 90 MG SQ (10:40)
[2024-07-17] MEDS: WARFARIN 2MG TABLET 4 MG PO (10:41)
[2024-07-17 11:55] LABS: POC Glucose,Bedside 298 (70-110)
--- NOTE | 2024-07-17 14:58 | EXP.CARD.PN ---
Subjective Subjective Date: 07/17/24 Time: 08:30 Interval history: Doing well, no complaints. Labs reviewed and stable. No further shocks. Exam Data for Last 24 hours Vital signs and Labs for Last 24 Hours: Temp Pulse Resp BP Pulse Ox O2 Del Method O2 Flow Rate 98.5 F 87 12 120/76 97 Nasal Cannula 2 07/17/24 12:00 07/17/24 12:00 07/17/24 12:00 07/17/24 12:00 07/17/24 12:00 07/17/24 14:44 07/17/24 13:00 Laboratory Results - last 24 hr 07/16/24 08:35: TSH 6.97 H 07/16/24 16:46: POC Glucose 325 H* 07/16/24 20:30: POC Glucose 240 H 07/17/24 06:10: WBC 4.6 L, RBC 3.36 L, Hgb 8.8 L, Hct 29.8 L, MCV 88.8, MCH 26.1 L, MCHC 29.4 L, RDW 19.4 H, Plt Count 260, MPV 8.3, Neut % (Auto) 70.0, Lymph % (Auto) 13.2, [place] % (Auto) 7.0, Eos % (Auto) 8.8, Baso % (Auto) 1.0, Neut # (Auto) 3.2, Lymph # (Auto) 0.6 L, [place] # (Auto) 0.3, Eos # (Auto) 0.4, Baso # (Auto) 0.0, Sodium 135 L, Potassium 4.9, Chloride 96 L, Carbon Dioxide 34 H, Anion Gap 9.9, BUN 38 H, Creatinine 1.30 H, Estimated Creat Clear 63, Estimated GFR 42 L, Est GFR ( Amer) 50 L, Glucose 216 H, Calcium 9.1 07/17/24 08:40: PT 21.1 H, INR 2.02 H 07/17/24 11:49: POC Glucose 298 H I & O for Last 24 hours: Intake & Output 07/14/24 07/15/24 07/16/24 07/17/24 23:59 23:59 23:59 23:59 Intake Total 1730 / 1730 920 / 920 720 / 720 Output Total 1 / 1 0 / 0 0 / 0 Balance 1729 / 1729 920 / 920 720 / 720 Weight 194 lb 192 lb 5 oz 192 lb 4.983 oz 192 lb 4.983 oz Constitutional Constitutional: no acute distress *Routine Respiratory Exam Respiratory: Present CTA bilaterally and symmetric chest movement *Routine Cardiovascular Exam Cardiovascular: Present RRR, Normal S1 and Normal S2 *Routine Abdominal Exam Abdominal: Present soft and normoactive bowel sounds; Absent tenderness *Routine Extremities Exam Extremities: Present full ROM and normal capillary refill; Absent edema *Routine Skin Exam Skin: Present intact, dry and warm Detailed Neck Exam: Thyroids Thyroid: Absent bruit Progress Note: A&P Assessment and plan (1) AICD discharge: Status: Acute (2) Non-ST elevation [place] (NSTEMI): Status: Acute (3) Presence of biventricular AICD: Status: Acute (4) Chronic renal insufficiency, stage III (moderate): Status: Acute (5) Iron deficiency anemia: Status: Acute (6) History of mitral valve replacement with mechanical valve: Status: Acute (7) HFrEF (heart failure with reduced ejection fraction): Status: Acute Assessment and Plan Assessment and Plan for All Diagnoses:: History of nonischemic cardiomyopathy Chronic HFrEF s/p AICD AICD shocks for high v rates 180-240 Chronic A-fib Mechanical mitral valve replacement AICD recently placed for ejection fraction of 33.7 on cardiac MRI Device interrogation: Patient received 6 shocks, 23 episodes of high V rates ranging from 180-240 with 14 ATP Continue Toprol 100 mg p.o. twice daily On Coumadin Continue Bumex 2 mg p.o. in the morning and 1 mg p.o. in the evening as well as Aldactone 50 mg p.o. in the a.m. and 25 mg p.o. in the p.m. No ARB or Arni due to chronic kidney disease Consider addition of Jardiance later as outpatient Acute myocardial injury likely secondary to demand Continue aspirin 81 mg p.o. daily Patient had normal Cors in 2017, likely normal myoview 01/2023 Troponin 0.05- 0.17 EKG negative for acute ischemic changes Recommend outpatient ischemic eval Chronic anemia Hemoglobin stable at 8.7 continue to monitor Chronic kidney disease Creatinine 1.3-stable CV summary 07/17/2024: Patient is cv stable for dc home on the below listed meds, please have patient follow up next week in office with mayank for evaluation. needs outpatient ischemic eval. CV meds Aspirin 81 mg p.o. daily Bumex 2 mg p.o. in the morning and 1 mg p.o. in the evening Toprol 100 mg p.o. twice daily Aldactone 50 mg p.o. in the a.m. and 25 p.o. in the p.m. Coumadin Consider Jardiance later Metolazone 2.5mg po as needed No ARNI due to chronic kidney disease
--- NOTE | 2024-07-17 15:32 | P.DS_ITS ---
General Admission date:: 07/14/24 Discharge date: 07/17/24 HPI HPI HPI: This is a 59-year-old female history of hypertension, hyperlipidemia, fibrillation on warfarin, mitral valve mechanical replacement, CKD, hyp ertension, GERD, COPD, CHF, hemolytic anemia, cardiomyopathy status post recent AICD placement on 07/11 presenting with AICD shocks. States that she got out of the shower today just after being shocked once. States that it almost sent her to the ground. Received 8 total shocks. Denies chest pain, shortness of breath, nausea, vomiting, syncope, or any other concerns at this time. 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 recently discharged yesterday. Admitted for further monitoring. Hospital Course Hospital Course Hospital Course: Patient admitted to hospital after AICD fired. Patient's AICD/pacer interrogated by cardiology during current hospitalization. Patient evaluated by cardiology and maintained on telemetry throughout hospitalization. Cardiology cleared patient for hospital discharge by 07/17/2024 at 1530. Patient subsequently discharged home and instructed to follow-up with primary care physician and cardiology on outpatient basis. Per cardiology advice, Jardiance added to patient's home medical treatment regimen. Exam Data for Last 24 hours Vital signs and Labs for Last 24 Hours: Temp Pulse Resp BP Pulse Ox O2 Del Method O2 Flow Rate 98.5 F 87 12 120/76 97 Nasal Cannula 2 07/17/24 12:00 07/17/24 12:00 07/17/24 12:00 07/17/24 12:00 07/17/24 12:00 07/17/24 14:44 07/17/24 13:00 Laboratory Results - last 24 hr 07/16/24 08:35: TSH 6.97 H 07/16/24 16:46: POC Glucose 325 H* 07/16/24 20:30: POC Glucose 240 H 07/17/24 06:10: WBC 4.6 L, RBC 3.36 L, Hgb 8.8 L, Hct 29.8 L, MCV 88.8, MCH 26.1 L, MCHC 29.4 L, RDW 19.4 H, Plt Count 260, MPV 8.3, Neut % (Auto) 70.0, Lymph % (Auto) 13.2, Sabine % (Auto) 7.0, Eos % (Auto) 8.8, Baso % (Auto) 1.0, Neut # (Auto) 3.2, Lymph # (Auto) 0.6 L, Sabine # (Auto) 0.3, Eos # (Auto) 0.4, Baso # (Auto) 0.0, Sodium 135 L, Potassium 4.9, Chloride 96 L, Carbon Dioxide 34 H, Anion Gap 9.9, BUN 38 H, Creatinine 1.30 H, Estimated Creat Clear 63, Estimated GFR 42 L, Est GFR ( Amer) 50 L, Glucose 216 H, Calcium 9.1 07/17/24 08:40: PT 21.1 H, INR 2.02 H 07/17/24 11:49: POC Glucose 298 H I & O for Last 24 hours: Intake & Output 07/14/24 07/15/24 07/16/24 07/17/24 23:59 23:59 23:59 23:59 Intake Total 1730 / 1730 920 / 920 720 / 720 Output Total / 0 / 0 0 / 0 Balance 1729 / 1729 920 / 920 720 / 720 Weight 87.997 kg 87.231 kg 87.231 kg 87.231 kg Results Data Completed and Pending Labs on day of discharge: Labs from last 24 hours 07/17/24 07/17/24 07/17/24 11:49 08:40 06:10 WBC 4.6 L RBC 3.36 L Hgb 8.8 L Hct 29.8 L MCV 88.8 MCH 26.1 L MCHC 29.4 L RDW 19.4 H Plt Count 260 MPV 8.3 Neut % (Auto) 70.0 Lymph % (Auto) 13.2 Sabine % (Auto) 7.0 Eos % (Auto) 8.8 Baso % (Auto) 1.0 Neut # (Auto) 3.2 Lymph # (Auto) 0.6 L Sabine # (Auto) 0.3 Eos # (Auto) 0.4 Baso # (Auto) 0.0 PT 21.1 H INR 2.02 H Sodium 135 L Potassium 4.9 Chloride 96 L Carbon Dioxide 34 H Anion Gap 9.9 BUN 38 H Creatinine 1.30 H Estimated Creat Clear 63 Estimated GFR 42 L Est GFR ( Amer) 50 L Glucose 216 H POC Glucose 298 H Calcium 9.1 TSH 07/16/24 07/16/24 07/16/24 20:30 16:46 08:35 WBC RBC Hgb Hct MCV MCH MCHC RDW Plt Count MPV Neut % (Auto) Lymph % (Auto) Sabine % (Auto) Eos % (Auto) Baso % (Auto) Neut # (Auto) Lymph # (Auto) Sabine # (Auto) Eos # (Auto) Baso # (Auto) PT INR Sodium Potassium Chloride Carbon Dioxide Anion Gap BUN Creatinine Estimated Creat Clear Estimated GFR Est GFR ( Amer) Glucose POC Glucose 240 H 325 H* Calcium TSH 6.97 H DS: Diagnosis Discharge Diagnosis (1) AICD discharge: Status: Acute Code(s): Z45.02 - Encounter for adjustment and management of automatic implantable cardiac defibrillator (2) Non-ST elevation MD (NSTEMI): Status: Acute Code(s): I21.4 - Non-ST elevation (NSTEMI) myocardial infarction (3) Presence of biventricular AICD: Status: Acute Code(s): Z95.810 - Presence of automatic (implantable) cardiac defibrillator (4) Chronic renal insufficiency, stage III (moderate): Status: Acute Code(s): N18.30 - Chronic kidney disease, stage 3 unspecified (5) Iron deficiency anemia: Status: Acute Code(s): D50.9 - Iron deficiency anemia, unspecified (6) History of mitral valve replacement with mechanical valve: Status: Acute Code(s): Z95.2 - Presence of prosthetic heart valve (7) HFrEF (heart failure with reduced ejection fraction): Status: Acute Code(s): I50.20 - Unspecified systolic (congestive) heart failure Meds Home Medications and Allergies Home Medications ?Medication ?Instructions ?Recorded ?Confirmed ?Type aspirin 81 mg tablet,delayed 81 mg PO DAILY 12/01/17 07/14/24 History release (Adult Low Dose Aspirin) oxycodone-acetaminophen 10 mg-325 1 tab PO QID 05/23/18 07/14/24 History mg tablet (Percocet) alprazolam 0.5 mg tablet (Xanax) 0.5 mg PO TID 11/29/19 07/14/24 History levothyroxine 25 mcg tablet 25 mcg PO DAILY 06/05/21 07/14/24 History insulin glargine 100 60 units SQ DAILY 02/22/22 07/14/24 History unit-lixisenatide 33 mcg/mL subcutaneous pen febuxostat 40 mg tablet 40 mg PO DAILY 02/09/23 07/14/24 History potassium chloride 20 mEq 20 meq PO DAILY 04/15/23 07/14/24 History tablet,extended release(part/cryst) calcitriol 0.25 mcg capsule 0.25 mcg PO DAILY 10/30/23 07/14/24 History warfarin 4 mg tablet 4 mg PO SUTUWETHSA 10/31/23 07/14/24 History warfarin 4 mg tablet 2 mg PO MOFR 11/25/23 07/14/24 History duloxetine 60 mg capsule,delayed 60 mg PO HS 03/06/24 07/14/24 History release dexlansoprazole 30 mg 30 mg PO DAILY 03/29/24 07/14/24 History capsule,biphase delayed release (Dexilant) bumetanide 2 mg tablet 1 mg PO HS 06/15/24 07/14/24 History metolazone 2.5 mg tablet 2.5 mg PO DAILYP PRN edema 06/15/24 07/14/24 History spironolactone 50 mg tablet 25 mg PO HS 06/15/24 07/14/24 History insulin glargine 100 unit/mL (3 10 unit SQ HS 06/27/24 07/14/24 History mL) subcutaneous pen (Lantus Solostar U-100 Insulin) metoprolol succinate 100 mg 100 mg PO BID 06/27/24 07/14/24 History tablet,extended release 24 hr bumetanide 2 mg tablet 2 mg PO DAILY 07/11/24 07/14/24 History spironolactone 50 mg tablet 50 mg PO DAILY 07/11/24 07/14/24 History enoxaparin 100 mg/mL subcutaneous 90 mg (0.9 mL) SQ Q12H 4 days #7.2 07/13/24 07/14/24 Rx syringe (Lovenox) mL empagliflozin 10 mg tablet 10 mg PO DAILY #30 tabs 07/17/24 Rx (Jardiance) New Prescriptions to Start Prescriptions: empagliflozin [Jardiance] Kaplan[facility]ac Allergies Allergy/AdvReac Type Severity Reaction Status Date / Time codeine [CODEINE] Allergy Unknown nausea, Verified 07/07/24 13:08 swelling Corticosteroids Allergy Unknown Unknown Verified 07/07/24 13:08 (Glucocorticoids) allergy [CORTICOSTEROIDS reaction (GLUCOCORTICOIDS)] NSAIDS (Non-Steroidal Allergy Unknown Other Verified 07/07/24 13:08 Anti-Inflamma rosuvastatin [From CRESTOR] Allergy Unknown Unknown Verified 07/07/24 13:08 allergy reaction theophylline [From DAVID-DUR] Allergy Unknown Unknown Verified 07/07/24 13:08 allergy reaction Iodinated Contrast Media AdvReac Severe shuts Verified 07/07/24 13:08 [IODINATED CONTRAST- ORAL kidneys AND IV DYE] down and bleeding buprenorphine [From BUPRENEX] AdvReac Intermediate Nausea Verified 07/07/24 13:08 levofloxacin [From Levaquin] AdvReac Verified 07/07/24 13:08 lisinopril AdvReac Cough Verified 07/07/24 13:08 prednisone AdvReac Unknown Verified 07/07/24 13:08 allergy reaction sacubitril [From Entresto] AdvReac Hypotension Verified 07/07/24 13:08 valsartan [From Entresto] AdvReac Hypotension Verified 07/07/24 13:08 Discharge Plan Disposition Patient Disposition: Home, Self-Care Condition: Fair Follow up Plan Follow up with: Tod Sawyer MD [Staff Physician] - 08/07/24 10:45 am Reji Castro MD [Primary Care Provider] - 07/19/24 11:15 am Prescriptions/Medication Reconciliation: New Jardiance 10 mg tablet 10 mg PO DAILY Qty: 30 1RF Continued aspirin [Adult Low Dose Aspirin] 81 mg tablet,delayed release (DR/EC) 81 mg PO DAILY oxycodone-acetaminophen [Percocet] 10-325 mg tablet 1 tab PO QID alprazolam [Xanax] 0.5 mg tablet 0.5 mg PO TID potassium chloride 20 mEq tablet,ER particles/crystals 20 meq PO DAILY duloxetine 60 mg capsule,delayed release(DR/EC) 60 mg PO HS Patient Comments: TAKE (1) CAPSULE BY MOUTH ONCE A DAY. metolazone 2.5 mg tablet 2.5 mg PO DAILYP PRN (Reason: edema) bumetanide 2 mg tablet 1 mg PO HS Rx Instructions: 1 tablet in the am and 0.5 tablet in the pm spironolactone 50 mg tablet 25 mg PO HS enoxaparin [Lovenox] 100 mg/mL syringe 90 mg SQ Q12H 4 Days Qty: 7.2 0RF levothyroxine 25 MCG tablet 25 mcg PO DAILY calcitriol 0.25 mcg Capsule 0.25 mcg PO DAILY warfarin 4 mg tablet 4 mg PO SUTUWETHSA warfarin 4 mg tablet 2 mg PO MOFR insulin glargine-lixisenatide 3 ML insulin pen 60 units SQ DAILY febuxostat 40 mg tablet 40 mg PO DAILY dexlansoprazole [Dexilant] 30 mg capsule,biphase delayed releas 30 mg PO DAILY Patient Comments: TAKE (1) CAPSULE BY MOUTH ONCE A DAY. bumetanide 2 mg tablet 2 mg PO DAILY spironolactone 50 mg tablet 50 mg PO DAILY insulin glargine [Lantus Solostar U-100 Insulin] 100 unit/mL (3 mL) insulin pen 10 unit SQ HS Patient Comments: INJECT 10 UNITS SUB-Q AT BEDTIME. EACH PEN EXPIRES 28 DAYS AFTER FIRST USE. metoprolol succinate 100 mg tablet extended release 24 hr 100 mg PO BID Problem Reconciliation Problems Reviewed?: Yes Patient Discharge Instructions ACTIVITY: Continue current activity DIET: continue same diet Patient Instructions: DI for Atypical Chest Pain Print Language: Irish Providers Primary Care Provider: Reji Castro Admit Provider: Neptali Herbert Attending Provider: Neptali Herbert
--- NOTE | 2024-07-18 11:36 | CARE MANAGER ---
Patient contacted related to hospital discharge. She accidentally left her discharge paperwork. We went over her medication and appointment times. Patient verbalized understanding and denies any questions. JEREMIAH Hillman
== END 2024-07-17 17:22 | disposition home or self-care (01) ==
LOC: ER 21:02 → 2ND 21:10
PROVIDERS: Internal Medicine; Nurse Practitioner; Nurse Practitioner Family; Admitting Provider Internal Medicine Adolescent Medicine; Emergency Provider Emergency Medicine; PCP Internal Medicine Adolescent Medicine; Visit Provider Internal Medicine Adolescent Medicine
DX: I21.4 Non-ST elevation (NSTEMI) myocardial infarction (principal); Z45.02 Encounter for adjustment and management of automatic implantable cardiac defibrillator; Z95.810 Presence of automatic (implantable) cardiac defibrillator; D50.9 Iron deficiency anemia, unspecified; N18.30 Chronic kidney disease, stage 3 unspecified; Z95.2 Presence of prosthetic heart valve; I50.32 Chronic diastolic (congestive) heart failure; I13.0 Hypertensive heart and chronic kidney disease with heart failure and stage 1 through stage 4 chronic kidney disease, or unspecified chronic kidney disease; I27.20 Pulmonary hypertension, unspecified; R79.89 Other specified abnormal findings of blood chemistry; Z79.899 Other long term (current) drug therapy; Z79.4 Long term (current) use of insulin; Z79.01 Long term (current) use of anticoagulants; J44.9 Chronic obstructive pulmonary disease, unspecified; E78.5 Hyperlipidemia, unspecified; I48.91 Unspecified atrial fibrillation; I42.9 Cardiomyopathy, unspecified; K21.9 Gastro-esophageal reflux disease without esophagitis
CPT/HCPCS: 36415; 71045; 80048; 80053; 82962; 83605; 83735; 83880; 84443; 84484; 85007; 85025; 85610; 85730; 93005; 97162; 97165; 99291; G0378; J1650; J3475; J7620

== ENCOUNTER 2024-07-20 09:42 | Outpatient (CLI) | payer MEDICARE, MEDICAID, SELFPAY ==
[2024-07-20 10:00] VITALS: BMI 32.2
[2024-07-20 10:17] VITALS: BP 109/67; PULSE 81; RESP 16; TEMP 36.4; O2SAT 97
[2024-07-20] MEDS: IRON SUCROSE COMPLEX 200 MG in 0.9 % SODIUM CHLORIDE 100 ML 220 MG IV (10:17)
[2024-07-20] MEDS: 0.9 % SODIUM CHLORIDE 50 ML 100 ML IV (10:17)
[2024-07-20] MEDS: SODIUM CHLORIDE 0.9% 10ML FLUSH SYRINGE 10 ML IV ×2 (10:17→10:55)
[2024-07-20 10:18] LABS: Basophils # 0.1 K/mm3 (0-0.2); Basophils % 0.8 % (0.1-2.0); Eosinophils # 0.4 K/mm3 (0.0-0.4); Eosinophils % 5.6 % (0.1-12.0); Hematocrit 28.9 % (37.0-47.0); Hemoglobin 8.6 g/dL (12.2-16.2); Lymphocytes # 0.4 K/mm3 (0.7-4.5); Lymphocytes % 5.9 % (10-50); Mean Corpuscular HGB Conc 29.7 g/dL (31.8-35.4); Mean Corpuscular Hemoglobin 25.6 pg (27.0-31.2); Mean Corpuscular Volume 86.2 fl (81-99); Mean Platelet Volume 8.7 fl (7.4-10.4); Monocytes # 0.4 K/mm3 (0.1-1.0); Monocytes % 5.3 % (1.7-9.3); Neutrophils # 5.8 K/mm3 (1.8-7.8); Neutrophils % 82.4 % (37.0-80.0); Platelet Count 319 K/mm3 (142-424); Red Blood Count 3.35 M/mm3 (4.20-5.40); Red Cell Distribution Width 19.8 % (11.5-17.5)
[2024-07-20 10:31] LABS: Prothrombin Time 36.4 seconds (10.1-12.5)
[2024-07-20 10:55] VITALS: BP 111/65; PULSE 81; RESP 18; TEMP 36.4; O2SAT 96
== END 2024-07-20 11:00 | disposition home or self-care (01) ==
LOC: INF 09:43
PROVIDERS: PCP Internal Medicine Adolescent Medicine; Visit Provider Internal Medicine Medical Oncology
DX: D50.9 Iron deficiency anemia, unspecified (principal); I48.20 Chronic atrial fibrillation, unspecified
CPT/HCPCS: 85025; 85610; 96365; J1642; J1756

== ENCOUNTER 2024-07-27 09:25 | Outpatient (CLI) | payer MEDICARE, MEDICAID, SELFPAY ==
[2024-07-27 09:38] VITALS: BMI 32.2
[2024-07-27 09:50] VITALS: BP 114/67; PULSE 79; RESP 18; O2SAT 98
[2024-07-27] MEDS: IRON SUCROSE COMPLEX 200 MG in 0.9 % SODIUM CHLORIDE 100 ML 220 MG IV (09:50)
[2024-07-27 09:56] LABS: Basophils # 0.1 K/mm3 (0-0.2); Basophils % 0.9 % (0.1-2.0); Eosinophils # 0.3 K/mm3 (0.0-0.4); Hematocrit 28.1 % (37.0-47.0); Hemoglobin 8.2 g/dL (12.2-16.2); Lymphocytes # 0.5 K/mm3 (0.7-4.5); Lymphocytes % 5.6 % (10-50); Mean Corpuscular HGB Conc 29.3 g/dL (31.8-35.4); Mean Corpuscular Hemoglobin 25.1 pg (27.0-31.2); Mean Corpuscular Volume 85.7 fl (81-99); Monocytes # 0.6 K/mm3 (0.1-1.0); Monocytes % 5.9 % (1.7-9.3); Neutrophils # 7.8 K/mm3 (1.8-7.8); Neutrophils % 84.5 % (37.0-80.0); Platelet Count 401 K/mm3 (142-424); Red Blood Count 3.28 M/mm3 (4.20-5.40); Red Cell Distribution Width 19.9 % (11.5-17.5); White Blood Count 9.3 K/mm3 (4.8-10.8)
[2024-07-27 10:25] VITALS: BP 134/73; PULSE 79
[2024-07-27] MEDS: SODIUM CHLORIDE 0.9% 10ML FLUSH SYRINGE 10 ML IV (10:30)
[2024-07-27] MEDS: SODIUM CHLORIDE 0.9% 50ML BAG 50 ML IV (10:30)
== END 2024-07-27 10:30 | disposition home or self-care (01) ==
LOC: INF 09:26
PROVIDERS: PCP Internal Medicine Adolescent Medicine; Visit Provider Internal Medicine Medical Oncology
DX: D50.9 Iron deficiency anemia, unspecified (principal)
CPT/HCPCS: 85025; 96365; J1642; J1756

== ENCOUNTER 2024-07-31 08:30 | Outpatient (CLI) | payer MEDICARE, MEDICAID, SELFPAY ==
[2024-07-31 08:34] VITALS: BMI 32.2
[2024-07-31 09:01] LABS: Basophils # 0.1 K/mm3 (0-0.2); Basophils % 0.7 % (0.1-2.0); Eosinophils # 0.3 K/mm3 (0.0-0.4); Eosinophils % 3.2 % (0.1-12.0); Hematocrit 28.4 % (37.0-47.0); Hemoglobin 8.2 g/dL (12.2-16.2); Lymphocytes # 0.5 K/mm3 (0.7-4.5); Lymphocytes % 5.5 % (10-50); Mean Corpuscular Hemoglobin 25.2 pg (27.0-31.2); Mean Corpuscular Volume 86.9 fl (81-99); Mean Platelet Volume 7.9 fl (7.4-10.4); Monocytes # 0.5 K/mm3 (0.1-1.0); Neutrophils # 7.5 K/mm3 (1.8-7.8); Neutrophils % 84.5 % (37.0-80.0); Platelet Count 396 K/mm3 (142-424); Red Blood Count 3.26 M/mm3 (4.20-5.40); Red Cell Distribution Width 20.5 % (11.5-17.5); White Blood Count 8.8 K/mm3 (4.8-10.8)
== END 2024-07-31 09:42 | disposition home or self-care (01) ==
LOC: INF 08:31
PROVIDERS: PCP Internal Medicine Adolescent Medicine; Visit Provider Internal Medicine Medical Oncology
DX: D50.9 Iron deficiency anemia, unspecified (principal)
CPT/HCPCS: 36591; 85025; J1642

== ENCOUNTER 2024-08-02 13:40 | Outpatient (CLI) | payer MEDICARE, MEDICAID, SELFPAY ==
[2024-08-02] MEDS: SODIUM CHLORIDE 0.9% 10ML FLUSH SYRINGE 10 ML IV (14:00)
[2024-08-02 14:04] LABS: Basophils # 0.1 K/mm3 (0-0.2); Basophils % 0.7 % (0.1-2.0); Eosinophils # 0.3 K/mm3 (0.0-0.4); Eosinophils % 2.8 % (0.1-12.0); Hematocrit 27.4 % (37.0-47.0); Hemoglobin 8.1 g/dL (12.2-16.2); Lymphocytes # 0.7 K/mm3 (0.7-4.5); Lymphocytes % 7.9 % (10-50); Mean Corpuscular HGB Conc 29.5 g/dL (31.8-35.4); Mean Corpuscular Hemoglobin 24.6 pg (27.0-31.2); Mean Corpuscular Volume 83.3 fl (81-99); Mean Platelet Volume 8.7 fl (7.4-10.4); Monocytes # 0.7 K/mm3 (0.1-1.0); Monocytes % 7.3 % (1.7-9.3); Neutrophils # 7.7 K/mm3 (1.8-7.8); Neutrophils % 81.3 % (37.0-80.0); Platelet Count 439 K/mm3 (142-424); Red Blood Count 3.29 M/mm3 (4.20-5.40); Red Cell Distribution Width 19.8 % (11.5-17.5); White Blood Count 9.5 K/mm3 (4.8-10.8)
[2024-08-02 14:08] LABS: Chloride 94 mmol/L (98-107)
[2024-08-02 14:09] LABS: Albumin Level 4.8 g/dl (3.5-5.0); Sodium 135 mmol/L (136-145)
[2024-08-02 14:10] LABS: Potassium 4.8 mmoL/L (3.5-5.1)
[2024-08-02 14:12] LABS: Alanine Aminotransferase 21 U/L (12-78); Alkaline Phosphatase 91 U/L (38-126); Anion Gap 12.8 mEq/L (5-15); Aspartate Amino Transferase 25 U/L (14-36); Bilirubin,Direct 0.3 mg/dl (0.0-0.4); Bilirubin,Indirect 0.5 mg/dL (0.0-0.9); Bilirubin,Total 0.8 mg/dl (0.2-1.3); Bilirubin,Unconjugated 0.5 mg/dL (0.0-1.1); Blood Urea Nitrogen 47 mg/dl (7-17); Carbon Dioxide 33 mmol/L (22.0-30.0); Estimated Glomerular Filt Rate 25 ml/min (>60); GFR (African American) 31 ML/MIN (>60); Total Protein,Serum 8.2 g/dl (6.3-8.2)
[2024-08-02 14:13] LABS: Calcium 9.7 mg/dl (8.4-10.2); Chol/HDL Ratio 5.1 (1-3.5); Cholesterol 157 mg/dl (140-200); Glucose 106 mg/dl (74-100); HDL Cholesterol 31 mg/dl (40-60); Triglycerides 246 mg/dl (30-150); VLDL Cholesterol 49 mg/dL (0-40)
[2024-08-02 14:24] LABS: Direct LDL Cholesterol 55.93 mg/dL (100-129)
[2024-08-02 14:43] LABS: Thyroid Stimulating Hormone 3.02 uIU/mL (0.465-4.68)
[2024-08-02 17:25] LABS: Free T4 (Free Thyroxine) 1.38 ng/dl (0.78-2.19)
== END 2024-08-02 14:15 | disposition home or self-care (01) ==
LOC: LAB 13:41 → INF 13:43
PROVIDERS: PCP Internal Medicine Adolescent Medicine; Visit Provider Internal Medicine
DX: Z95.2 Presence of prosthetic heart valve (principal); Z95.810 Presence of automatic (implantable) cardiac defibrillator; I50.9 Heart failure, unspecified; I27.20 Pulmonary hypertension, unspecified; E10.9 Type 1 diabetes mellitus without complications; I48.20 Chronic atrial fibrillation, unspecified; I42.9 Cardiomyopathy, unspecified; I10 Essential (primary) hypertension; R06.09 Other forms of dyspnea; K21.9 Gastro-esophageal reflux disease without esophagitis; J44.9 Chronic obstructive pulmonary disease, unspecified; D64.9 Anemia, unspecified; I11.9 Hypertensive heart disease without heart failure; R06.00 Dyspnea, unspecified
CPT/HCPCS: 36591; 80048; 80061; 80076; 84439; 84443; 85025; J1642

== ENCOUNTER 2024-08-07 10:37 | Outpatient (CLI) | payer MEDICARE, MEDICAID, SELFPAY ==
[2024-08-07] VITALS (11 sets, daily range): BP systolic 106–150; BP diastolic 59–79; PULSE 79–81; RESP 16–18; TEMP 36.6–36.9; O2SAT 97–100; BMI 31.7
[2024-08-07 11:06] LABS: Basophils # 0.1 K/mm3 (0-0.2); Basophils % 0.6 % (0.1-2.0); Eosinophils # 0.2 K/mm3 (0.0-0.4); Eosinophils % 2.7 % (0.1-12.0); Hematocrit 22.8 % (37.0-47.0); Lymphocytes # 0.6 K/mm3 (0.7-4.5); Lymphocytes % 6.9 % (10-50); Mean Corpuscular HGB Conc 28.7 g/dL (31.8-35.4); Mean Corpuscular Hemoglobin 23.5 pg (27.0-31.2); Mean Corpuscular Volume 82.1 fl (81-99); Mean Platelet Volume 8.2 fl (7.4-10.4); Monocytes # 0.6 K/mm3 (0.1-1.0); Monocytes % 6.4 % (1.7-9.3); Neutrophils # 7.2 K/mm3 (1.8-7.8); Neutrophils % 83.5 % (37.0-80.0); Platelet Count 328 K/mm3 (142-424); Red Blood Count 2.78 M/mm3 (4.20-5.40); White Blood Count 8.6 K/mm3 (4.8-10.8)
[2024-08-07 11:08] LABS: Hemoglobin 6.5 g/dL (12.2-16.2)
[2024-08-07 11:16] LABS: Albumin Level 4.5 g/dl (3.5-5.0); Chloride 100 mmol/L (98-107)
[2024-08-07 11:17] LABS: Potassium 4.4 mmoL/L (3.5-5.1); Sodium 135 mmol/L (136-145)
[2024-08-07 11:19] LABS: Alanine Aminotransferase 20 U/L (12-78); Albumin/Globulin Ratio 1.6 (1.1-1.8); Alkaline Phosphatase 97 U/L (38-126); Anion Gap 10.4 mEq/L (5-15); Aspartate Amino Transferase 29 U/L (14-36); Bilirubin,Total 0.8 mg/dl (0.2-1.3); Blood Urea Nitrogen 49 mg/dl (7-17); Calcium 9.1 mg/dl (8.4-10.2); Carbon Dioxide 29 mmol/L (22.0-30.0); Creatinine Clearance Estimated 41 mL/min (50-200); Estimated Glomerular Filt Rate 27 ml/min (>60); GFR (African American) 33 ML/MIN (>60); Globulin 2.9 g/dL (1.3-3.2); Glucose 187 mg/dl (74-100); Iron 40 ug/dL (37-170); Total Protein,Serum 7.4 g/dl (6.3-8.2)
[2024-08-07 11:28] LABS: Total Iron Binding Capacity 505 ug/dL (265-497)
[2024-08-07 11:54] LABS: Ferritin 29.7 ng/ml (11.1-264)
[2024-08-07] MEDS: 0.9 % SODIUM CHLORIDE 250 ML 25 ML IV (12:01)
[2024-08-07] MEDS: ACETAMINOPHEN 325MG TAB 650 MG PO (12:01)
[2024-08-07] MEDS: diphenhydrAMINE 25MG CAPSULE 25 MG PO (12:02)
[2024-08-07] MEDS: SODIUM CHLORIDE 0.9% 10ML FLUSH SYRINGE 10 ML IV (15:45)
== END 2024-08-07 15:50 | disposition home or self-care (01) ==
LOC: INF 10:39
PROVIDERS: PCP Internal Medicine Adolescent Medicine; Visit Provider Internal Medicine Medical Oncology
DX: D50.9 Iron deficiency anemia, unspecified (principal)
CPT/HCPCS: 36430; 80053; 82728; 83540; 83550; 85025; 86850; J1642; P9016

== ENCOUNTER 2024-08-09 09:56 | Outpatient (CLI) | payer MEDICARE, MEDICAID, SELFPAY ==
[2024-08-09] VITALS (11 sets, daily range): BP systolic 98–115; BP diastolic 58–82; PULSE 79–82; RESP 14–18; TEMP 36.1–36.8; O2SAT 95–100; BMI 31.9
--- NOTE | 2024-08-09 10:27 | PC.NURSE ---
Pac accessed and flushed per protocol. Unable to obtain enough blood return today for labs. Venipuncture performed to pt's rt ac x 1 stick per Robyn Joseph RN using butterlfy access needle. Blood drawn and needle withdrawn, site secured with 2x2 gauze and coban.
[2024-08-09 10:41] LABS: Albumin Level 4.5 g/dl (3.5-5.0); Basophils % 0.5 % (0.1-2.0); Chloride 98 mmol/L (98-107); Eosinophils # 0.3 K/mm3 (0.0-0.4); Eosinophils % 3.2 % (0.1-12.0); Hematocrit 25.9 % (37.0-47.0); Hemoglobin 7.4 g/dL (12.2-16.2); Lymphocytes # 0.6 K/mm3 (0.7-4.5); Lymphocytes % 7.2 % (10-50); Mean Corpuscular HGB Conc 28.6 g/dL (31.8-35.4); Mean Corpuscular Hemoglobin 24.7 pg (27.0-31.2); Mean Corpuscular Volume 86.5 fl (81-99); Mean Platelet Volume 7.3 fl (7.4-10.4); Monocytes # 0.4 K/mm3 (0.1-1.0); Monocytes % 5.1 % (1.7-9.3); Neutrophils # 6.8 K/mm3 (1.8-7.8); Neutrophils % 84.1 % (37.0-80.0); Platelet Count 284 K/mm3 (142-424); Potassium 4.9 mmoL/L (3.5-5.1); Red Blood Count 2.99 M/mm3 (4.20-5.40); Sodium 134 mmol/L (136-145)
[2024-08-09 10:43] LABS: Blood Urea Nitrogen 48 mg/dl (7-17); Creatinine Clearance Estimated 39 mL/min (50-200); Estimated Glomerular Filt Rate 25 ml/min (>60); GFR (African American) 31 ML/MIN (>60)
[2024-08-09 10:44] LABS: Alanine Aminotransferase 17 U/L (12-78); Albumin/Globulin Ratio 1.7 (1.1-1.8); Alkaline Phosphatase 94 U/L (38-126); Anion Gap 11.9 mEq/L (5-15); Aspartate Amino Transferase 22 U/L (14-36); Bilirubin,Total 0.8 mg/dl (0.2-1.3); Calcium 9.2 mg/dl (8.4-10.2); Carbon Dioxide 29 mmol/L (22.0-30.0); Globulin 2.6 g/dL (1.3-3.2); Glucose 244 mg/dl (74-100); Iron 44 ug/dL (37-170); Total Protein,Serum 7.1 g/dl (6.3-8.2)
[2024-08-09 10:54] LABS: Total Iron Binding Capacity 419 ug/dL (265-497)
[2024-08-09 11:22] LABS: Ferritin 21.1 ng/ml (11.1-264)
[2024-08-09] MEDS: ACETAMINOPHEN 325MG TAB 650 MG PO (13:34)
[2024-08-09] MEDS: diphenhydrAMINE 25MG CAPSULE 25 MG PO (13:34)
[2024-08-09] MEDS: 0.9 % SODIUM CHLORIDE 250 ML 25 ML IV (13:34)
--- NOTE | 2024-08-09 16:30 | PC.NURSE ---
Pt. states she feels good and does not want to stay for her 1 hr post VS. She states she will be back in the morning for another unit and is ready to leave. VS stable at this time. Pt. denies any chest pain or shortness of breath.
== END 2024-08-09 16:36 | disposition home or self-care (01) ==
LOC: INF 09:57
PROVIDERS: Internal Medicine Medical Oncology; PCP Internal Medicine Adolescent Medicine; Visit Provider Nurse Practitioner
DX: D50.9 Iron deficiency anemia, unspecified (principal)
CPT/HCPCS: 36415; 36430; 80053; 82728; 83540; 83550; 85025; J1642; P9016

== ENCOUNTER 2024-08-10 08:42 | Outpatient (CLI) | payer MEDICARE, MEDICAID, SELFPAY ==
[2024-08-10] VITALS (11 sets, daily range): BP systolic 103–128; BP diastolic 55–78; PULSE 79–82; RESP 16–18; TEMP 36.6–36.9; O2SAT 97–100
[2024-08-10] MEDS: diphenhydrAMINE 25MG CAPSULE 25 MG PO (09:20)
[2024-08-10] MEDS: ACETAMINOPHEN 325MG TAB 650 MG PO (09:20)
[2024-08-10] MEDS: 0.9 % SODIUM CHLORIDE 250 ML 999 ML IV (09:49)
[2024-08-10] MEDS: SODIUM CHLORIDE 0.9% 10ML FLUSH SYRINGE 10 ML IV (12:58)
== END 2024-08-10 13:00 | disposition home or self-care (01) ==
LOC: INF 08:43
PROVIDERS: PCP Internal Medicine Adolescent Medicine; Visit Provider Internal Medicine Medical Oncology
DX: D64.9 Anemia, unspecified (principal)
CPT/HCPCS: 36430; J1642; P9016

== ENCOUNTER 2024-08-15 09:51 | Outpatient (CLI) | payer MEDICARE, MEDICAID, SELFPAY ==
[2024-08-15] MEDS: SODIUM CHLORIDE 0.9% 50ML BAG 50 ML IV (10:17)
[2024-08-15] MEDS: ferumoxytoL 510 MG in 0.9 % SODIUM CHLORIDE 50 ML 268 MG IV (10:17)
[2024-08-15 10:20] VITALS: BP 125/66; PULSE 69; RESP 18; TEMP 36.4; O2SAT 98
[2024-08-15] MEDS: SODIUM CHLORIDE 0.9% 10ML FLUSH SYRINGE 10 ML IV (10:43)
[2024-08-15 10:45] VITALS: BP 133/76; PULSE 79; RESP 18; O2SAT 98
== END 2024-08-15 10:45 | disposition home or self-care (01) ==
LOC: INF 09:52
PROVIDERS: PCP Internal Medicine Adolescent Medicine; Visit Provider Internal Medicine Adolescent Medicine
DX: Z95.2 Presence of prosthetic heart valve (principal)
CPT/HCPCS: 96374; J1642; Q0138

== ENCOUNTER 2024-08-16 11:39 | Outpatient (CLI) | payer MEDICARE, MEDICAID, SELFPAY ==
[2024-08-16 14:39] LABS: PHA INR Fingerstick 3.9 (0.9-1.1)
== END 2024-08-16 14:40 ==
LOC: ACC 11:40
PROVIDERS: PCP Internal Medicine Adolescent Medicine; Visit Provider Internal Medicine
DX: Z79.01 Long term (current) use of anticoagulants (principal); Z95.2 Presence of prosthetic heart valve
CPT/HCPCS: 85610; 99211; G0463

== ENCOUNTER 2024-08-23 09:01 | Outpatient (CLI) | payer MEDICARE, MEDICAID, SELFPAY ==
[2024-08-23 09:08] VITALS: BMI 32.5
[2024-08-23 09:20] VITALS: BP 104/49; PULSE 80; RESP 20; TEMP 36.4; O2SAT 95
[2024-08-23] MEDS: ferumoxytoL 510 MG in 0.9 % SODIUM CHLORIDE 50 ML 268 MG IV (09:20)
[2024-08-23] MEDS: SODIUM CHLORIDE 0.9% 50ML BAG 50 ML IV (09:20)
[2024-08-23 09:24] LABS: Basophils # 0.1 K/mm3 (0-0.2); Basophils % 0.8 % (0.1-2.0); Eosinophils # 0.2 K/mm3 (0.0-0.4); Eosinophils % 2.6 % (0.1-12.0); Hematocrit 24.6 % (37.0-47.0); Hemoglobin 7.2 g/dL (12.2-16.2); Lymphocytes # 0.4 K/mm3 (0.7-4.5); Mean Corpuscular HGB Conc 29.4 g/dL (31.8-35.4); Mean Corpuscular Hemoglobin 25.4 pg (27.0-31.2); Mean Corpuscular Volume 86.2 fl (81-99); Mean Platelet Volume 9.8 fl (7.4-10.4); Monocytes # 0.4 K/mm3 (0.1-1.0); Monocytes % 5.9 % (1.7-9.3); Neutrophils # 6.1 K/mm3 (1.8-7.8); Neutrophils % 84.7 % (37.0-80.0); Platelet Count 318 K/mm3 (142-424); Red Blood Count 2.86 M/mm3 (4.20-5.40); Red Cell Distribution Width 23.3 % (11.5-17.5); White Blood Count 7.2 K/mm3 (4.8-10.8)
[2024-08-23] MEDS: SODIUM CHLORIDE 0.9% 10ML FLUSH SYRINGE 10 ML IV (09:28)
[2024-08-23 10:00] VITALS: BP 101/52; PULSE 79; RESP 20; O2SAT 96
--- NOTE | 2024-08-23 10:05 | FL_ITS ---
FINAL REPORT CLINICAL HISTORY: trouble swallowing 1080.90 dap 1.01 fluoro time FINDINGS: ESOPHAGRAM HISTORY: Parathyroid masses, difficulty swallowing. PROCEDURE: The patient ingested barium. Effervescent crystals were also administered. Spot films were obtained. 27 total images were performed. FINDINGS: The esophagus is normal. There is no hiatal hernia. There is gastroesophageal reflux to the midesophagus. Peristalsis is normal. A 13 mm barium tablet passes easily through the esophagus into the stomach. FLUOROSCOPY TIME: 1.01 minutes Total DAP: 1080.90 uGym2 IMPRESSION: Gastroesophageal reflux. Otherwise, unremarkable esophagram. Reviewed, Interpreted and Dictated by Urbano Gracia MD Transcribed by Radha Pierce PA-C Authenticated and . [facility]
[2024-08-23] MEDS: E-Z-GASII EFFERVESCENT GRANULES;1PK 1 EACH PO (11:10)
[2024-08-23] MEDS: BARIUM SULFATE(LIQUID E-Z-PAQUE);355ML BOTTLE 355 ML PO (11:10)
[2024-08-23] MEDS: BARIUM SULFATE (E-Z-HD 340GM);135ML BOTTLE 135 ML PO (11:10)
== END 2024-08-23 10:00 | disposition home or self-care (01) ==
LOC: INF 09:02
PROVIDERS: PCP Internal Medicine Adolescent Medicine; Visit Provider Internal Medicine Medical Oncology
DX: D50.9 Iron deficiency anemia, unspecified (principal)
CPT/HCPCS: 74220; 85025; 86850; 96365; 96374; J1642; Q0138

== ENCOUNTER 2024-08-24 08:51 | Outpatient (CLI) | payer MEDICARE, MEDICAID, SELFPAY ==
[2024-08-24] VITALS (12 sets, daily range): BP systolic 100–124; BP diastolic 58–70; PULSE 78–82; RESP 15–17; TEMP 35.9–36.3; O2SAT 96–98
[2024-08-24] MEDS: 0.9 % SODIUM CHLORIDE 250 ML 100 ML IV (09:11)
[2024-08-24] MEDS: ACETAMINOPHEN 325MG TAB 650 MG PO (09:11)
[2024-08-24] MEDS: diphenhydrAMINE 25MG CAPSULE 25 MG PO (09:11)
[2024-08-24] MEDS: SODIUM CHLORIDE 0.9% 10ML FLUSH SYRINGE 10 ML IV (09:30)
--- NOTE | 2024-08-24 09:56 | PC.NURSE ---
0950-BLOOD TRANSFUSION STARTED AT 100 ML/HR AT THIS TIME.
--- NOTE | 2024-08-24 10:40 | PC.NURSE ---
1020-INCREASED RATE TO 150 ML/HR AT THIS TIME.
--- NOTE | 2024-08-24 11:46 | PC.NURSE ---
1050-INCREASED RATE TO 200 ML/HR AT THIS TIME.
== END 2024-08-24 13:15 | disposition home or self-care (01) ==
LOC: INF 08:53
PROVIDERS: PCP Internal Medicine Adolescent Medicine; Visit Provider Internal Medicine Medical Oncology
DX: D50.9 Iron deficiency anemia, unspecified (principal)
CPT/HCPCS: 36430; J1642; P9016

== ENCOUNTER 2024-09-04 14:05 | Outpatient (CLI) | payer MEDICARE, MEDICAID, SELFPAY ==
[2024-09-04 14:24] LABS: Basophils # 0.1 K/mm3 (0-0.2); Basophils % 0.8 % (0.1-2.0); Eosinophils # 0.2 K/mm3 (0.0-0.4); Eosinophils % 1.8 % (0.1-12.0); Hematocrit 24.6 % (37.0-47.0); Hemoglobin 7.4 g/dL (12.2-16.2); Lymphocytes # 0.6 K/mm3 (0.7-4.5); Lymphocytes % 7.5 % (10-50); Mean Corpuscular Hemoglobin 25.5 pg (27.0-31.2); Mean Platelet Volume 8.4 fl (7.4-10.4); Monocytes # 0.6 K/mm3 (0.1-1.0); Monocytes % 7.5 % (1.7-9.3); Neutrophils # 6.9 K/mm3 (1.8-7.8); Neutrophils % 82.3 % (37.0-80.0); Platelet Count 308 K/mm3 (142-424); Red Cell Distribution Width 22.4 % (11.5-17.5); White Blood Count 8.4 K/mm3 (4.8-10.8)
[2024-09-04 14:27] LABS: Chloride 95 mmol/L (98-107); Sodium 134 mmol/L (136-145)
[2024-09-04 14:28] LABS: Potassium 4.6 mmoL/L (3.5-5.1)
[2024-09-04 14:30] LABS: Blood Urea Nitrogen 64 mg/dl (7-17); Estimated Glomerular Filt Rate 24 ml/min (>60); GFR (African American) 29 ML/MIN (>60)
[2024-09-04 14:31] LABS: Anion Gap 13.6 mEq/L (5-15); Calcium 9.6 mg/dl (8.4-10.2); Carbon Dioxide 30 mmol/L (22.0-30.0); Glucose 157 mg/dl (74-100)
[2024-09-04 14:38] LABS: INR 4.94 (0.9-1.1)
[2024-09-04 15:04] LABS: Prothrombin Time 47.2 seconds (10.1-12.5)
[2024-09-04 15:07] LABS: Thyroid Stimulating Hormone 3.74 uIU/mL (0.465-4.68)
--- NOTE | 2024-09-04 15:15 | PC.NURSE ---
Ulises Santamaria called by Elieser Dunne MLT at 1503 to report PT 47.2. RN Repeated and verified pt name, , and lab value. Abiel Raines called d/t patient attending Coumadin clinic and instructed for patient to hold her dose of Coumadin this evening. Dr. Pro called d/t patients hemoglobin 7.4 and symptomatic with fatigue. Instructed for patient to come in tomorrow for 1 unit PRBC, patient in agreeance.
[2024-09-04] MEDS: SODIUM CHLORIDE 0.9% 10ML FLUSH SYRINGE 10 ML IV (16:18)
[2024-09-04 18:42] LABS: Free T4 (Free Thyroxine) 1.51 ng/dl (0.78-2.19)
[2024-09-15 00:10] LABS: 1,25 Dihydroxy Vitamin D 60 pg/mL (.); 1,25-Dihydroxy, Vitamin D-2 <10 pg/mL (.); 1,25-Dihydroxy, Vitamin D-3 59 pg/mL (.)
== END 2024-09-04 16:08 | disposition home or self-care (01) ==
LOC: LAB 14:06 → INF 14:12
PROVIDERS: PCP Internal Medicine Adolescent Medicine; Visit Provider Internal Medicine
DX: I50.9 Heart failure, unspecified (principal); Z95.2 Presence of prosthetic heart valve; Z79.01 Long term (current) use of anticoagulants; Z95.810 Presence of automatic (implantable) cardiac defibrillator; I27.20 Pulmonary hypertension, unspecified; E10.9 Type 1 diabetes mellitus without complications; I10 Essential (primary) hypertension; K21.9 Gastro-esophageal reflux disease without esophagitis; J44.9 Chronic obstructive pulmonary disease, unspecified; D64.9 Anemia, unspecified; E55.9 Vitamin D deficiency, unspecified
CPT/HCPCS: 36591; 80048; 82652; 84439; 84443; 85025; 85610; 86850; J1642

== ENCOUNTER 2024-09-05 08:56 | Outpatient (CLI) | payer MEDICARE, MEDICAID, SELFPAY ==
[2024-09-05] VITALS (11 sets, daily range): BP systolic 105–120; BP diastolic 59–71; PULSE 79–81; RESP 14–18; TEMP 36.4–36.7; O2SAT 97–99
[2024-09-05] MEDS: diphenhydrAMINE 25MG CAPSULE 25 MG PO (09:12)
[2024-09-05] MEDS: 0.9 % SODIUM CHLORIDE 250 ML 25 ML IV (09:12)
[2024-09-05] MEDS: ACETAMINOPHEN 325MG TAB 650 MG PO (09:12)
[2024-09-05 09:48] LABS: INR 4.35 (0.9-1.1); Prothrombin Time 42.1 seconds (10.1-12.5)
[2024-09-05] MEDS: SODIUM CHLORIDE 0.9% 10ML FLUSH SYRINGE 10 ML IV (12:47)
== END 2024-09-05 13:00 | disposition home or self-care (01) ==
LOC: INF 08:57
PROVIDERS: PCP Internal Medicine Adolescent Medicine; Visit Provider Internal Medicine Medical Oncology
DX: Z79.01 Long term (current) use of anticoagulants (principal)
CPT/HCPCS: 36430; 85610; J1642; P9016

== ENCOUNTER 2024-09-07 09:11 | Outpatient (CLI) | payer MEDICARE, MEDICAID, SELFPAY ==
[2024-09-07] VITALS (10 sets, daily range): BP systolic 104–128; BP diastolic 55–68; PULSE 79–80; RESP 15–18; TEMP 36.4–36.8; O2SAT 100
[2024-09-07 10:14] LABS: Basophils # 0.1 K/mm3 (0-0.2); Basophils % 0.8 % (0.1-2.0); Eosinophils # 0.1 K/mm3 (0.0-0.4); Eosinophils % 1.9 % (0.1-12.0); Hematocrit 23.7 % (37.0-47.0); Hemoglobin 7.3 g/dL (12.2-16.2); Lymphocytes # 0.4 K/mm3 (0.7-4.5); Lymphocytes % 5.2 % (10-50); Mean Corpuscular HGB Conc 30.8 g/dL (31.8-35.4); Mean Corpuscular Hemoglobin 25.7 pg (27.0-31.2); Mean Corpuscular Volume 83.5 fl (81-99); Mean Platelet Volume 8.2 fl (7.4-10.4); Monocytes # 0.5 K/mm3 (0.1-1.0); Monocytes % 6.2 % (1.7-9.3); Neutrophils # 6.4 K/mm3 (1.8-7.8); Neutrophils % 85.9 % (37.0-80.0); Platelet Count 298 K/mm3 (142-424); Red Blood Count 2.84 M/mm3 (4.20-5.40); Red Cell Distribution Width 21.2 % (11.5-17.5); White Blood Count 7.4 K/mm3 (4.8-10.8)
[2024-09-07 10:18] LABS: MANUAL DIFFERENTIAL MANUAL DIFFERENTIAL (MANUAL DIFF)
[2024-09-07 10:27] LABS: Albumin Level 4.5 g/dl (3.5-5.0); Chloride 97 mmol/L (98-107); Potassium 4.3 mmoL/L (3.5-5.1); Sodium 136 mmol/L (136-145)
[2024-09-07 10:29] LABS: Blood Urea Nitrogen 59 mg/dl (7-17); Estimated Glomerular Filt Rate 29 ml/min (>60); GFR (African American) 35 ML/MIN (>60)
[2024-09-07 10:30] LABS: Alanine Aminotransferase 24 U/L (12-78); Albumin/Globulin Ratio 1.8 (1.1-1.8); Alkaline Phosphatase 93 U/L (38-126); Anion Gap 13.3 mEq/L (5-15); Aspartate Amino Transferase 30 U/L (14-36); Bilirubin,Total 0.7 mg/dl (0.2-1.3); Calcium 9.7 mg/dl (8.4-10.2); Carbon Dioxide 30 mmol/L (22.0-30.0); Globulin 2.5 g/dL (1.3-3.2); Glucose 170 mg/dl (74-100); Iron 35 ug/dL (37-170)
[2024-09-07 10:39] LABS: Total Iron Binding Capacity 435 ug/dL (265-497)
[2024-09-07 10:53] LABS: Hypochromasia 1+; Lymphocytes % 13 % (10-50); Monocytes % 2 % (2-9); Neutrophils % 85 % (42-76); Platelet Estimate Normal; Total Cells Counted 100
[2024-09-07 11:04] LABS: Ferritin 21.1 ng/ml (11.1-264)
[2024-09-07] MEDS: diphenhydrAMINE 25MG CAPSULE 25 MG PO (11:52)
[2024-09-07] MEDS: 0.9 % SODIUM CHLORIDE 250 ML 25 ML IV (11:52)
[2024-09-07] MEDS: ACETAMINOPHEN 325MG TAB 650 MG PO (11:52)
--- NOTE | 2024-09-07 13:32 | PC.NURSE ---
1305-INCREASED RATE TO 150 ML/HR AT THIS TIME.
--- NOTE | 2024-09-07 14:35 | PC.NURSE ---
1335-INCREASED RATE TO 200 ML/HR AT THIS TIME.
--- NOTE | 2024-09-07 14:59 | PC.NURSE ---
MICHELLE FROM LAB PRESENT. RN TOMMIE BLOOD FROM PORT FOR TXM 1 UNIT PRBC'S.
--- NOTE | 2024-09-07 15:01 | PC.NURSE ---
1154-PREMEDICATED WITH TYLENOL 650MG PO AND BENADRYL 25MG PO AT THIS TIME PRIOR TO BLOOD TRANSFUSION.
== END 2024-09-07 15:30 | disposition home or self-care (01) ==
LOC: INF 09:13
PROVIDERS: PCP Internal Medicine Adolescent Medicine; Visit Provider Internal Medicine Medical Oncology
DX: D64.9 Anemia, unspecified (principal)
CPT/HCPCS: 36430; 80053; 82728; 83540; 83550; 85007; 85025; 85027; 86850; J1642; P9016

== ENCOUNTER 2024-09-07 09:33 | Outpatient (CLI) | payer MEDICARE, MEDICAID, SELFPAY | END 2024-09-07 23:59 | disposition home or self-care (01) | LOC: LAB.DROPOF 09-08 09:33 | PROVIDERS: PCP Internal Medicine Adolescent Medicine; Visit Provider Internal Medicine Medical Oncology | DX: D64.9 Anemia, unspecified (principal) | CPT/HCPCS: J1642 ==

== ENCOUNTER 2024-09-13 10:12 | Outpatient (CLI) | payer MEDICARE, MEDICAID, SELFPAY ==
[2024-09-13] VITALS (11 sets, daily range): BP systolic 86–112; BP diastolic 54–82; PULSE 80; RESP 16–18; TEMP 36.1–36.9; O2SAT 92–100; BMI 32.1
[2024-09-13] MEDS: ferumoxytoL 510 MG in 0.9 % SODIUM CHLORIDE 50 ML 268 MG IV (10:46)
[2024-09-13] MEDS: SODIUM CHLORIDE 0.9% 50ML BAG 50 ML IV (10:46)
[2024-09-13 10:49] LABS: Basophils # 0.1 K/mm3 (0-0.2); Basophils % 0.8 % (0.1-2.0); Eosinophils # 0.2 K/mm3 (0.0-0.4); Eosinophils % 2.1 % (0.1-12.0); Hematocrit 24.3 % (37.0-47.0); Hemoglobin 7.2 g/dL (12.2-16.2); Lymphocytes # 0.5 K/mm3 (0.7-4.5); Lymphocytes % 6.8 % (10-50); Mean Corpuscular HGB Conc 29.4 g/dL (31.8-35.4); Mean Corpuscular Hemoglobin 24.3 pg (27.0-31.2); Mean Corpuscular Volume 82.5 fl (81-99); Mean Platelet Volume 8.9 fl (7.4-10.4); Monocytes # 0.5 K/mm3 (0.1-1.0); Monocytes % 6.1 % (1.7-9.3); Neutrophils # 6.3 K/mm3 (1.8-7.8); Neutrophils % 84.2 % (37.0-80.0); Platelet Count 331 K/mm3 (142-424); Red Blood Count 2.95 M/mm3 (4.20-5.40); Red Cell Distribution Width 21.1 % (11.5-17.5); White Blood Count 7.5 K/mm3 (4.8-10.8)
[2024-09-13] MEDS: SODIUM CHLORIDE 0.9% 10ML FLUSH SYRINGE 10 ML IV (10:51)
--- NOTE | 2024-09-13 10:55 | PC.NURSE ---
venipuncture draw with 23g butterfly needle to LAC, labs drawn and sent to lab. orders placed. 2X2s and coban applied. bleeding controlled. pt tolerated well.
[2024-09-13] MEDS: 0.9 % SODIUM CHLORIDE 250 ML 25 ML IV (13:08)
[2024-09-13] MEDS: ACETAMINOPHEN 325MG TAB 650 MG PO (13:08)
[2024-09-13] MEDS: diphenhydrAMINE 25MG CAPSULE 25 MG PO (13:08)
[2024-09-13 14:31] LABS: PHA INR Fingerstick 2.2 (0.9-1.1)
== END 2024-09-13 16:25 ==
LOC: ACC 10:12
PROVIDERS: PCP Internal Medicine Adolescent Medicine; Visit Provider Internal Medicine Medical Oncology
DX: D50.9 Iron deficiency anemia, unspecified (principal); Z79.01 Long term (current) use of anticoagulants; Z95.2 Presence of prosthetic heart valve
CPT/HCPCS: 36430; 85025; 85610; 86850; 96365; 96374; 99211; G0463; P9016; Q0138

== ENCOUNTER 2024-09-14 08:42 | Outpatient (CLI) | payer MEDICARE, MEDICAID, SELFPAY ==
[2024-09-14] VITALS (11 sets, daily range): BP systolic 105–125; BP diastolic 60–71; PULSE 79–94; RESP 18–84; TEMP 36.3–36.6; O2SAT 94–100
[2024-09-14] MEDS: diphenhydrAMINE 25MG CAPSULE 25 MG PO (08:52)
[2024-09-14] MEDS: ACETAMINOPHEN 325MG TAB 650 MG (08:52)
--- NOTE | 2024-09-14 10:00 | PC.NURSE ---
Verified blood with JEREMIAH Giraldo at 0930. The verification did not save. Reverified the blood with JEREMIAH Giraldo but system would not let me back time, contacted Diana Wing for further instruction on how document correct times. Advised to email lab curing room supervisor to manually correct verification time.
== END 2024-09-14 13:00 | disposition home or self-care (01) ==
LOC: INF 08:43
PROVIDERS: PCP Internal Medicine Adolescent Medicine; Visit Provider Internal Medicine Medical Oncology
DX: Z79.01 Long term (current) use of anticoagulants (principal)
CPT/HCPCS: 36430; J1642; P9016

== ENCOUNTER 2024-09-19 09:04 | Outpatient (CLI) | payer MEDICARE, MEDICAID, SELFPAY ==
[2024-09-19 09:11] VITALS: BMI 32.5
[2024-09-19 09:25] LABS: Basophils # 0.1 K/mm3 (0-0.2); Basophils % 0.6 % (0.1-2.0); Eosinophils # 0.2 K/mm3 (0.0-0.4); Eosinophils % 2.3 % (0.1-12.0); Hematocrit 31.7 % (37.0-47.0); Hemoglobin 9.2 g/dL (12.2-16.2); Lymphocytes # 0.5 K/mm3 (0.7-4.5); Lymphocytes % 5.8 % (10-50); Mean Corpuscular HGB Conc 28.9 g/dL (31.8-35.4); Mean Corpuscular Hemoglobin 26.3 pg (27.0-31.2); Mean Corpuscular Volume 90.9 fl (81-99); Mean Platelet Volume 7.8 fl (7.4-10.4); Monocytes # 0.6 K/mm3 (0.1-1.0); Monocytes % 6.7 % (1.7-9.3); Neutrophils % 84.6 % (37.0-80.0); Platelet Count 280 K/mm3 (142-424); Red Blood Count 3.48 M/mm3 (4.20-5.40); Red Cell Distribution Width 22.3 % (11.5-17.5); White Blood Count 8.3 K/mm3 (4.8-10.8)
[2024-09-19 09:30] VITALS: BP 109/52; PULSE 80; RESP 18; TEMP 36.6; O2SAT 95
[2024-09-19] MEDS: ferumoxytoL 510 MG in 0.9 % SODIUM CHLORIDE 50 ML 268 MG IV (09:30)
[2024-09-19] MEDS: SODIUM CHLORIDE 0.9% 50ML BAG 50 ML IV (09:36)
[2024-09-19] MEDS: SODIUM CHLORIDE 0.9% 10ML FLUSH SYRINGE 10 ML IV (09:37)
[2024-09-19 10:00] VITALS: BP 102/59; PULSE 90; RESP 20; O2SAT 98
== END 2024-09-19 10:04 | disposition home or self-care (01) ==
LOC: INF 09:05
PROVIDERS: PCP Internal Medicine Adolescent Medicine; Visit Provider Internal Medicine Medical Oncology
DX: D50.9 Iron deficiency anemia, unspecified (principal)
CPT/HCPCS: 85025; 96374; J1642; Q0138

== ENCOUNTER 2024-09-22 09:59 | Outpatient (CLI) | payer MEDICARE, MEDICAID, SELFPAY ==
[2024-09-22] MEDS: ferumoxytoL 510 MG in 0.9 % SODIUM CHLORIDE 50 ML 268 MG IV (10:23)
[2024-09-22] MEDS: SODIUM CHLORIDE 0.9% 50ML BAG 50 ML IV (10:23)
[2024-09-22 10:33] VITALS: BP 118/67; PULSE 79; RESP 17; O2SAT 95
[2024-09-22 10:41] LABS: INR 2.34 (0.9-1.1); Prothrombin Time 24.1 seconds (10.1-12.5)
[2024-09-22 10:50] VITALS: BP 130/69; PULSE 79
== END 2024-09-22 11:05 | disposition home or self-care (01) ==
LOC: INF 10:00
PROVIDERS: PCP Internal Medicine Adolescent Medicine; Visit Provider Internal Medicine Medical Oncology
DX: Z79.01 Long term (current) use of anticoagulants (principal)
CPT/HCPCS: 85610; 96374; J1642; Q0138

== ENCOUNTER 2024-09-26 08:39 | Outpatient (CLI) | payer MEDICARE, MEDICAID, SELFPAY ==
[2024-09-26 08:50] VITALS: BMI 32.5
[2024-09-26 10:04] LABS: Basophils # 0.1 K/mm3 (0-0.2); Basophils % 0.9 % (0.1-2.0); Eosinophils # 0.2 K/mm3 (0.0-0.4); Eosinophils % 2.7 % (0.1-12.0); Hematocrit 31.8 % (37.0-47.0); Hemoglobin 9.9 g/dL (12.2-16.2); Lymphocytes # 0.5 K/mm3 (0.7-4.5); Lymphocytes % 6.5 % (10-50); Mean Corpuscular HGB Conc 31.3 g/dL (31.8-35.4); Mean Corpuscular Hemoglobin 28.1 pg (27.0-31.2); Mean Corpuscular Volume 89.8 fl (81-99); Monocytes # 0.6 K/mm3 (0.1-1.0); Monocytes % 8.1 % (1.7-9.3); Neutrophils # 5.7 K/mm3 (1.8-7.8); Neutrophils % 81.8 % (37.0-80.0); Platelet Count 265 K/mm3 (142-424); Red Blood Count 3.54 M/mm3 (4.20-5.40); Red Cell Distribution Width 24.9 % (11.5-17.5); White Blood Count 6.9 K/mm3 (4.8-10.8)
[2024-09-26] MEDS: SODIUM CHLORIDE 0.9% 10ML FLUSH SYRINGE 10 ML IV (10:15)
== END 2024-09-26 10:28 | disposition home or self-care (01) ==
LOC: INF 08:39
PROVIDERS: PCP Internal Medicine Adolescent Medicine; Visit Provider Internal Medicine Medical Oncology
DX: D50.9 Iron deficiency anemia, unspecified (principal)
CPT/HCPCS: 36591; 85025; J1642

== ENCOUNTER 2024-10-05 13:09 | Outpatient (CLI) | payer MEDICARE, MEDICAID, SELFPAY ==
[2024-10-05 13:17] VITALS: BMI 31.9
[2024-10-05 13:51] LABS: Alanine Aminotransferase 31 U/L (12-78); Albumin Level 4.3 g/dl (3.5-5.0); Albumin/Globulin Ratio 1.7 (1.1-1.8); Alkaline Phosphatase 87 U/L (38-126); Anion Gap 14.3 mEq/L (5-15); Aspartate Amino Transferase 34 U/L (14-36); Bilirubin,Total 0.7 mg/dl (0.2-1.3); Blood Urea Nitrogen 48 mg/dl (7-17); Calcium 9.2 mg/dl (8.4-10.2); Carbon Dioxide 29 mmol/L (22.0-30.0); Chloride 98 mmol/L (98-107); Creatinine Clearance Estimated 41 mL/min (50-200); Estimated Glomerular Filt Rate 27 ml/min (>60); GFR (African American) 33 ML/MIN (>60); Globulin 2.5 g/dL (1.3-3.2); Glucose 110 mg/dl (74-100); Iron 49 ug/dL (37-170); Potassium 4.3 mmoL/L (3.5-5.1); Sodium 137 mmol/L (136-145); Total Protein,Serum 6.8 g/dl (6.3-8.2)
[2024-10-05 13:53] LABS: INR 4.81 (0.9-1.1)
[2024-10-05 13:59] LABS: Prothrombin Time 46.1 seconds (10.1-12.5)
[2024-10-05 14:00] LABS: Total Iron Binding Capacity 455 ug/dL (265-497)
[2024-10-05 14:02] LABS: Eosinophils # 0.1 K/mm3 (0.0-0.4); Eosinophils % 2.2 % (0.1-12.0); Hematocrit 29.9 % (37.0-47.0); Hemoglobin 9.2 g/dL (12.2-16.2); Lymphocytes # 0.6 K/mm3 (0.7-4.5); Lymphocytes % 13.4 % (10-50); Mean Corpuscular HGB Conc 30.6 g/dL (31.8-35.4); Mean Corpuscular Hemoglobin 28.2 pg (27.0-31.2); Mean Platelet Volume 7.8 fl (7.4-10.4); Monocytes # 0.3 K/mm3 (0.1-1.0); Monocytes % 7.7 % (1.7-9.3); Neutrophils # 3.4 K/mm3 (1.8-7.8); Neutrophils % 75.7 % (37.0-80.0); Platelet Count 259 K/mm3 (142-424); Red Blood Count 3.25 M/mm3 (4.20-5.40); Red Cell Distribution Width 22.6 % (11.5-17.5); White Blood Count 4.4 K/mm3 (4.8-10.8)
--- NOTE | 2024-10-05 14:09 | PC.NURSE ---
Crystal Munoz (lab) called RN at 1350 to report PT level 46.1. RN repeated and verified pt name, and lab value. Result called to Dr. Castro and Elieser Raines. Dr. Castro states that Elieser Raines can adjust medication based off lab value. Elieser Raines aware and states he will contact patient.
[2024-10-05 14:59] LABS: Ferritin 83.9 ng/ml (11.1-264)
[2024-10-05] MEDS: SODIUM CHLORIDE 0.9% 10ML FLUSH SYRINGE 10 ML IV (15:14)
== END 2024-10-05 15:19 | disposition home or self-care (01) ==
LOC: INF 13:09
PROVIDERS: PCP Internal Medicine Adolescent Medicine; Visit Provider Internal Medicine Medical Oncology
DX: D50.9 Iron deficiency anemia, unspecified (principal); Z79.01 Long term (current) use of anticoagulants
CPT/HCPCS: 36591; 80053; 82728; 83540; 83550; 85025; 85610; J1642

== ENCOUNTER 2024-10-14 14:37 | Emergency (ER) | payer MEDICARE, MEDICAID, SELFPAY ==
[2024-10-14 14:38] VITALS: BP 124/71; PULSE 83; RESP 20; TEMP 36.6; O2SAT 98; BMI 32.2
--- NOTE | 2024-10-14 14:55 | CT_ITS ---
PROCEDURE INFORMATION: Exam: CT Chest Without Contrast; Diagnostic Exam date and time: 10/14/2024 3:15 PM Age: 59 years old Clinical indication: Injury or trauma; Fall; Blunt trauma (contusions or hematomas) TECHNIQUE: Imaging protocol: Diagnostic computed tomography of the chest without contrast. Radiation optimization: All CT scans at this facility use at least one of these dose optimization techniques: automated exposure control; mA and/or kV adjustment per patient size (includes targeted exams where dose is matched to clinical indication); or iterative reconstruction. COMPARISON: CT CHEST WO CON 11/18/2023 12:06 PM FINDINGS: Tubes, catheters and devices: Transvenous pacemaker leads in the heart Lungs: Atelectasis in the right middle lobe Pleural spaces: Unremarkable. No pneumothorax. No pleural effusion. Heart: Cardiomegaly. There is calcification of the aortic valve annulus. There is calcification of the mitral valve annulus. Coronary arteries: Coronary artery calcifications may indicate coronary artery disease. Lymph nodes: Unremarkable. No enlarged lymph nodes. Vasculature: Unremarkable. No aortic aneurysm. Spleen: Calcifications in the spleen Adrenal glands: Right adrenal mass 3.9 cm. There is fatty component and solid component. It has increased in size from 3.3 cm in October.. Bones/joints: Median sternotomy Soft tissues: Unremarkable. IMPRESSION: Right adrenal mass 3.9 cm. There is fatty component and solid component. It has increased in size from 3.3 cm in October.. If the patient has no cancer history, then consider follow-up non-emergent adrenal CT or resection. If the patient has a history of cancer, then consider biopsy or PET/CT. (Reference: Vishnu) References: Vishnu YANG et al. Management of Incidental Adrenal Masses: A White Paper of the ACR Incidental Findings Committee. J Am Dominik Radiol. 2017;14(8):0540-2041. COMMENTS: Consistent with the [employer] [employer]'s Incidental Findings Committee white paper (J Am Dominik Radiol 2017): For any incidental adrenal lesion greater than or equal to 1 cm but less than or equal to 4 cm classified in this report as benign, likely benign, or containing fat (including classification as an adenoma or myelolipoma), no follow-up imaging is recommended per consensus recommendations based on imaging criteria. Further lab evaluation could be pursued if warranted based on clinical findings.
--- NOTE | 2024-10-14 15:30 | ED_ITS ---
Discharge Plan Prescriptions Prescriptions: No Action aspirin [Adult Low Dose Aspirin] 81 mg tablet,delayed release (DR/EC) 81 mg PO DAILY oxycodone-acetaminophen [Percocet] 10-325 mg tablet 1 tab PO QID amiodarone 200 mg tablet 200 mg PO Q24H Qty: 30 5RF alprazolam [Xanax] 0.5 mg tablet 0.5 mg PO TID potassium chloride 20 mEq tablet,ER particles/crystals 20 meq PO DAILY duloxetine 60 mg capsule,delayed release(DR/EC) 60 mg PO HS Patient Comments: TAKE (1) CAPSULE BY MOUTH ONCE A DAY. metolazone 2.5 mg tablet 2.5 mg PO DAILYP PRN (Reason: edema) azithromycin 250 mg tablet 250 mg PO DAILY ondansetron HCl 4 mg tablet 4 mg PO DAILY colchicine 0.6 mg tablet 0.6 mg PO DAILY spironolactone 50 mg tablet 50 mg PO BID Qty: 180 3RF enoxaparin [Lovenox] 100 mg/mL syringe 90 mg SQ Q12H 4 Days Qty: 7.2 0RF levothyroxine 25 MCG tablet 25 mcg PO DAILY calcitriol 0.25 mcg Capsule 0.25 mcg PO DAILY warfarin 4 mg tablet 4 mg PO SUTUWETHSA warfarin 4 mg tablet 2 mg PO MOFR insulin glargine-lixisenatide 3 ML insulin pen 60 units SQ DAILY febuxostat 40 mg tablet 40 mg PO DAILY dexlansoprazole [Dexilant] 30 mg capsule,biphase delayed releas 30 mg PO DAILY Patient Comments: TAKE (1) CAPSULE BY MOUTH ONCE A DAY. bumetanide 2 mg tablet 2 mg PO DAILY insulin glargine [Lantus Solostar U-100 Insulin] 100 unit/mL (3 mL) insulin pen 10 unit SQ HS Patient Comments: INJECT 10 UNITS SUB-Q AT BEDTIME. EACH PEN EXPIRES 28 DAYS AFTER FIRST USE. metoprolol succinate 100 mg tablet extended release 24 hr 100 mg PO BID Jardiance 10 mg tablet 10 mg PO DAILY Qty: 30 1RF Referrals Follow up/Referrals: Reji Castro MD [Primary Care Provider] - See instructions Activity Restrictions/Add. Instructions Additional Instructions/Restrictions: Continue with all home meds. See Dr. Castro this week as scheduled. You will need an adrenal mass protocol because of the scan today. If any worsening pain or shortness of breath please return to the ED. 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 by RN): r rib pain. after a fall off a stool History of Present Illness HPI narrative: 59-year-old female presents to the ED today for right sided rib pain after she fell off a stool. She fell onto a chair that had a cushion and it and onto her right rib area. She denies hitting her head. No head pain or neck pain. Denies any other pain other than her right rib area. She does states she has pain with inspiration. She is on Coumadin for A-fib and valve replacement. She does have a pacer defibrillator. She also has history of anemia and the last time she received packed red blood cells was 1029 and she received Feraheme on 111 I believe. Related Data Home Medications ?Medication ?Instructions ?Recorded ?Confirmed aspirin 81 mg tablet,delayed 81 mg PO DAILY 12/01/17 10/05/24 release (Adult Low Dose Aspirin) oxycodone-acetaminophen 10 mg-325 1 tab PO QID 05/23/18 10/05/24 mg tablet (Percocet) alprazolam 0.5 mg tablet (Xanax) 0.5 mg PO TID 11/29/19 10/05/24 levothyroxine 25 mcg tablet 25 mcg PO DAILY 06/05/21 10/05/24 insulin glargine 100 60 units SQ DAILY 02/22/22 10/05/24 unit-lixisenatide 33 mcg/mL subcutaneous pen febuxostat 40 mg tablet 40 mg PO DAILY 02/09/23 10/05/24 potassium chloride 20 mEq 20 meq PO DAILY 04/15/23 10/05/24 tablet,extended release(part/cryst) calcitriol 0.25 mcg capsule 0.25 mcg PO DAILY 10/30/23 10/05/24 warfarin 4 mg tablet 4 mg PO SUTUWETHSA 10/31/23 10/05/24 warfarin 4 mg tablet 2 mg PO MOFR 11/25/23 10/05/24 duloxetine 60 mg capsule,delayed 60 mg PO HS 03/06/24 10/05/24 release dexlansoprazole 30 mg 30 mg PO DAILY 03/29/24 10/05/24 capsule,biphase delayed release (Dexilant) metolazone 2.5 mg tablet 2.5 mg PO DAILYP PRN edema 06/15/24 10/05/24 insulin glargine 100 unit/mL (3 10 unit SQ HS 06/27/24 10/05/24 mL) subcutaneous pen (Lantus Solostar U-100 Insulin) metoprolol succinate 100 mg 100 mg PO BID 06/27/24 10/05/24 tablet,extended release 24 hr bumetanide 2 mg tablet 2 mg PO DAILY 07/11/24 10/05/24 azithromycin 250 mg tablet 250 mg PO DAILY 10/05/24 10/05/24 colchicine 0.6 mg tablet 0.6 mg PO DAILY 10/05/24 10/05/24 ondansetron HCl 4 mg tablet 4 mg PO DAILY 10/05/24 10/05/24 Previous Rx's ?Medication ?Instructions ?Recorded enoxaparin 100 mg/mL subcutaneous 90 mg (0.9 mL) SQ Q12H 4 days #7.2 07/13/24 syringe (Lovenox) mL empagliflozin 10 mg tablet 10 mg PO DAILY #30 tabs 07/17/24 (Jardiance) amiodarone 200 mg tablet 200 mg PO Q24H #30 tabs 09/04/24 spironolactone 50 mg tablet 50 mg PO BID #180 tabs 10/05/24 Allergies Allergy/AdvReac Type Severity Reaction Status Date / Time codeine (CODEINE) Allergy Unknown nausea, Verified 10/05/24 14:23 swelling Corticosteroids Allergy Unknown Unknown Verified 10/05/24 14:23 (Glucocorticoids) allergy (CORTICOSTEROIDS reaction (GLUCOCORTICOIDS)) NSAIDS (Non-Steroidal Allergy Unknown Other Verified 10/05/24 14:23 Anti-Inflamma rosuvastatin (From CRESTOR) Allergy Unknown Unknown Verified 10/05/24 14:23 allergy reaction theophylline (From DAVID-DUR) Allergy Unknown Unknown Verified 10/05/24 14:23 allergy reaction Iodinated Contrast Media AdvReac Severe shuts Verified 10/05/24 14:23 (IODINATED CONTRAST- ORAL kidneys AND IV DYE) down and bleeding buprenorphine (From BUPRENEX) AdvReac Intermediate Nausea Verified 10/05/24 14:23 levofloxacin (From Levaquin) AdvReac Other Verified 10/05/24 14:23 lisinopril AdvReac Cough Verified 10/05/24 14:23 prednisone AdvReac Unknown Verified 10/05/24 14:23 allergy reaction sacubitril (From Entresto) AdvReac Hypotension Verified 10/05/24 14:23 valsartan (From Entresto) AdvReac Hypotension Verified 10/05/24 14:23 PFSH <Clarice Barney (ED), [employer] - Last Filed: 10/14/24 17:26> PFS Disclaimer: The information contained in this section may have been updated after the patient was seen, as this information can be updated by other users. 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 with INR goal of 2.5-3.5 Third degree heart block Junctional escape rhythm Current use of assisted anticoagulation Afib HFrEF (heart failure with reduced ejection fraction) Partial tear of tendon CHF (NYHA class III, ACC/AHA stage C) Atrial fibrillation, chronic COPD exacerbation CHF exacerbation Anemia Systolic CHF Typical angina Dyspnea Rib fracture Blood transfusion reaction Autoimmune hemolytic anemia Arthritis Hernia Sinus problem Rheumatic heart disease Hypothyroidism Polyarthralgia Pulmonary edema HLD (hyperlipidemia) HTN (hypertension) CAD (coronary artery disease) DM type 2 (diabetes mellitus, type 2) DVT (deep venous thrombosis) Cardiomyopathy Arrhythmia Liver disease Thyroid disease Valvular heart disease Hypertension Hyperlipidemia GERD (gastroesophageal reflux disease) COPD (chronic obstructive pulmonary disease) Class 1 obesity CKD (chronic kidney disease) stage 3, GFR 30-59 ml/min Acute on chronic HFrEF (heart failure with reduced ejection fraction) Coronary artery disease Congestive heart failure, NYHA class III NYHA class 3 acute on chronic systolic heart failure Diabetes mellitus Hypertensive heart disease CHF (congestive heart failure) Diastolic heart failure Tricuspid valve regurgitation Surgical History Presence of biventricular AICD History of mitral valve replacement with mechanical valve Mitral valve replaced History of colon resection H/O tubal ligation History of angioplasty History of renal stent History of ureteroscopy History of tubal ligation History of hernia repair History of cardiac catheterization Family History Other Breast cancer COPD (chronic obstructive pulmonary disease) Colon cancer Family history of acute heart failure Family history of hyperlipidemia Family history of hypertension Family history of myocardial infarction Hypertension Stroke Social History (Updated 10/14/24 @ 17:26 by Clarice Barney (ED), [employer]EM[employer]) Smoking Status: Never smoker smoking status stop date: 01/09/2006 quit status: quit date established second hand exposure: Yes alcohol intake: never substance use type: denies use current occupational status: retired and disabled Travel in the last 8 weeks: None adopted: No caregiver/support person: No foster care: No household members: significant other housing: house lives independently: Yes marital status: life partner education level: college service: No longterm: No current occupational exposures/hazards: No sexually active: Yes how many partners: 1 are you practicing safe sex: Yes diet: diabetic well-balanced diet: about half the time caffeine: No eating out: rarely or never during the past year weight has: remained stable bhavya/restorationism: [employer] special bhavya needs: No agree to transfusion: Yes helmet use: No water heater temp set < 120 deg: Yes working smoke detector in home: Yes fire extinguisher in home: Yes carbon monox detector in home: Yes firearms in home: No do you feel safe at home: Yes victim of physical abuse: No victim of emotional abuse: No victim of sexual abuse: No would you like helpful sources: No Other Medical History Have you received the Flu Vaccine for this season: No Have you received the Pneumonia Vaccine: Yes <Clarice Barney (ED), [employer] IN[employer] - Last Filed: 10/14/24 17:26> ROS Obtained: Yes Systems reviewed as appropriate & no additional complaints except as documented Physical Exam <Clarice Barney (ED), [employer] IN[employer]EM[employer] - Last Filed: 10/14/24 17:26> General General appearance: alert and in distress Head Head exam: atraumatic and normocephalic Eye Eye exam: Present normal appearance, PERRL and EOMI ENT ENT exam: Present normal exam, normal oropharynx and mucous membranes moist Neck Neck exam: Present normal inspection, full ROM and trachea midline Chest Chest inspection: Present tenderness (On right side, axilla, right side and back) Respiratory Respiratory exam: Present normal lung sounds bilaterally Cardiovascular Cardiovascular exam: Present regular rate, normal rhythm, normal heart sounds, +S1 and +S2 Abdominal Exam Abdominal exam: Present soft and normal bowel sounds Extremities Exam Extremities exam: Present normal inspection, full ROM and normal capillary refill Back Exam Back exam: Present normal inspection Neurological Exam Neurological exam: Present alert, oriented X3 and normal gait Skin Skin exam: Present warm, dry and intact Medical Decision Making <Clarice Barney (ED), F[employer] IN[employer]EM[employer] - Last Filed: 10/14/24 17:26> Medical Records Screening: Per USPSTF and CDC recommendations, given the prevalence of disease in our region, it is our hospital?s policy to screen for HIV and viral Hepatitis for all patients aged 18 and over and those with ongoing risk factors. Jeancarlos Inquiry Pt receiving controlled substance: No Vital Signs: 10/14/24 14:38 10/14/24 17:22 Temperature 97.9 F 97.8 F Temperature Source Oral Pulse Rate 88 Pulse Rate [Right] 83 Respiratory Rate 20 18 Blood Pressure 0/0 L Blood Pressure [Right Arm] 124/71 Blood Pressure Mean [Right Arm] 88 02 Sat by Pulse Oximetry 98 Lab Data Lab Results 10/14/24 16:23: WBC 7.7, RBC 3.36 L, Hgb 9.4 L, Hct 30.0 L, MCV 89.3, MCH 28.0, MCHC 31.4 L, RDW 20.7 H, Plt Count 303, MPV 7.8, Neut % (Auto) 86.1 H, Lymph % (Auto) 5.3 L, [place] % (Auto) 6.1, Eos % (Auto) 1.9, Baso % (Auto) 0.6, Neut # (Auto) 6.6, Lymph # (Auto) 0.4 L, [place] # (Auto) 0.5, Eos # (Auto) 0.2, Baso # (Auto) 0.1, Total Counted 100, Neutrophils % (Manual) 89 H, Lymphocytes % (Manual) 7 L, Monocytes % (Manual) 2, Eosinophils % (Manual) 2, Platelet Estimate Normal, RBC Morphology Normal, PT 31.6 H, INR 3.16 H, APTT 34.2 H, Sodium 137, Potassium 4.2, Chloride 98, Carbon Dioxide 31 H, Anion Gap 12.2, BUN 55 H, Creatinine 2.00 H, Estimated Creat Clear 40, Estimated GFR 25 L, Est GFR ( Amer) 31 L, Glucose 147 H, Calcium 9.4, Total Bilirubin 0.9, AST 29, ALT 28, Alkaline Phosphatase 115, Total Protein 7.5, Albumin 4.7, Globulin 2.8, Albumin/Globulin Ratio 1.7 10/14/24 16:23 10/14/24 16:23 Orders (Tests/Meds): ORDERS Category Date Time Status CT chest wo con Stat Cat Scan 10/14/24 14:55 Completed CBC [Complete Blood Count Auto Diff] Stat Lab 10/14/24 16:23 Completed Comprehensive Metabolic Panel Stat Lab 10/14/24 16:23 Completed PT/INR [Prothrombin Time INR] Stat Lab 10/14/24 16:23 Completed PTT [Activated Partial Thrombo Time] Stat Lab 10/14/24 16:23 Completed Medical Decision Narrative: Insert review patient is a 59-year-old female presenting to the emergency department for evaluation of right-sided rib pain after a fall off a stool. Patient is hemodynamically stable and nontoxic-appearing upon arrival, afebrile. Differential diagnosis includes fractured ribs, sprain of ribs, hemopneumo among other things. Workup will be conducted with [hematologic labs, specific imaging. Initial inventions include CT scan of chest and basic labs including PT/INR because patient is on Coumadin. Initial workup reviewed by me [hematologic labs are remarkable for: Nothing acute. Imaging informally interpreted by me and remarkable for nothing acute. upon repeat evaluation patient's pain is improved. Patient appears well and is breathing well has stable vital signs patient can be discharged home. She has an appointment with her PCP on Wednesday. <Maye Singh, DO - Last Filed: 10/14/24 18:05> Vital Signs: 10/14/24 14:38 10/14/24 17:22 Temperature 97.9 F 97.8 F Temperature Source Oral Pulse Rate 88 Pulse Rate [Right] 83 Respiratory Rate 20 18 Blood Pressure 0/0 L Blood Pressure [Right Arm] 124/71 Blood Pressure Mean [Right Arm] 88 02 Sat by Pulse Oximetry 98 Lab Data Lab Results 10/14/24 16:23: WBC 7.7, RBC 3.36 L, Hgb 9.4 L, Hct 30.0 L, MCV 89.3, MCH 28.0, MCHC 31.4 L, RDW 20.7 H, Plt Count 303, MPV 7.8, Neut % (Auto) 86.1 H, Lymph % (Auto) 5.3 L, [place] % (Auto) 6.1, Eos % (Auto) 1.9, Baso % (Auto) 0.6, Neut # (Auto) 6.6, Lymph # (Auto) 0.4 L, [place] # (Auto) 0.5, Eos # (Auto) 0.2, Baso # (Auto) 0.1, Total Counted 100, Neutrophils % (Manual) 89 H, Lymphocytes % (Manual) 7 L, Monocytes % (Manual) 2, Eosinophils % (Manual) 2, Platelet Estimate Normal, RBC Morphology Normal, PT 31.6 H, INR 3.16 H, APTT 34.2 H, Sodium 137, Potassium 4.2, Chloride 98, Carbon Dioxide 31 H, Anion Gap 12.2, BUN 55 H, Creatinine 2.00 H, Estimated Creat Clear 40, Estimated GFR 25 L, Est GFR ( Amer) 31 L, Glucose 147 H, Calcium 9.4, Total Bilirubin 0.9, AST 29, ALT 28, Alkaline Phosphatase 115, Total Protein 7.5, Albumin 4.7, Globulin 2.8, Albumin/Globulin Ratio 1.7 Orders (Tests/Meds): ORDERS Category Date Time Status CT chest wo con Stat Cat Scan 10/14/24 14:55 Completed CBC [Complete Blood Count Auto Diff] Stat Lab 10/14/24 16:23 Completed Comprehensive Metabolic Panel Stat Lab 10/14/24 16:23 Completed PT/INR [Prothrombin Time INR] Stat Lab 10/14/24 16:23 Completed PTT [Activated Partial Thrombo Time] Stat Lab 10/14/24 16:23 Completed Medical Decision Narrative: Insert review patient is a 59-year-old female presenting to the emergency department for evaluation of right-sided rib pain after a fall off a stool. Patient is hemodynamically stable and nontoxic-appearing upon arrival, afebrile. Differential diagnosis includes fractured ribs, sprain of ribs, hemopneumo among other things. Workup will be conducted with [hematologic labs, specific imaging. Initial inventions include CT scan of chest and basic labs including PT/INR because patient is on Coumadin. Initial workup reviewed by me [hematologic labs are remarkable for: Nothing acute. Imaging informally interpreted by me and remarkable for nothing acute. upon repeat evaluation patient's pain is improved. Patient appears well and is breathing well has stable vital signs patient can be discharged home. She has an appointment with her PCP on Wednesday. I was consulted by the EZEQUIEL, and we discussed the complexity of the problems being addressed. I approved the treatment and management plan for this patient's care in the emergency department, thus performing a substantive portion of the medical decision making. Maye Singh, DO Critical Care <Clarice Barney (ED), [employer]ENCE INST[employer] - Last Filed: 10/14/24 17:26> Critical Care Time Critical Care Time: No
[2024-10-14 16:40] LABS: Basophils # 0.1 K/mm3 (0-0.2); Basophils % 0.6 % (0.1-2.0); Eosinophils # 0.2 K/mm3 (0.0-0.4); Eosinophils % 1.9 % (0.1-12.0); Hemoglobin 9.4 g/dL (12.2-16.2); Lymphocytes # 0.4 K/mm3 (0.7-4.5); Lymphocytes % 5.3 % (10-50); Mean Corpuscular HGB Conc 31.4 g/dL (31.8-35.4); Mean Corpuscular Volume 89.3 fl (81-99); Mean Platelet Volume 7.8 fl (7.4-10.4); Monocytes # 0.5 K/mm3 (0.1-1.0); Monocytes % 6.1 % (1.7-9.3); Neutrophils # 6.6 K/mm3 (1.8-7.8); Neutrophils % 86.1 % (37.0-80.0); Platelet Count 303 K/mm3 (142-424); Red Blood Count 3.36 M/mm3 (4.20-5.40); Red Cell Distribution Width 20.7 % (11.5-17.5); White Blood Count 7.7 K/mm3 (4.8-10.8)
[2024-10-14 16:42] LABS: MANUAL DIFFERENTIAL MANUAL DIFFERENTIAL (MANUAL DIFF)
[2024-10-14 16:46] LABS: Alanine Aminotransferase 28 U/L (12-78); Albumin Level 4.7 g/dl (3.5-5.0); Albumin/Globulin Ratio 1.7 (1.1-1.8); Alkaline Phosphatase 115 U/L (38-126); Anion Gap 12.2 mEq/L (5-15); Aspartate Amino Transferase 29 U/L (14-36); Bilirubin,Total 0.9 mg/dl (0.2-1.3); Blood Urea Nitrogen 55 mg/dl (7-17); Calcium 9.4 mg/dl (8.4-10.2); Carbon Dioxide 31 mmol/L (22.0-30.0); Chloride 98 mmol/L (98-107); Creatinine Clearance Estimated 40 mL/min (50-200); Estimated Glomerular Filt Rate 25 ml/min (>60); GFR (African American) 31 ML/MIN (>60); Globulin 2.8 g/dL (1.3-3.2); Glucose 147 mg/dl (74-100); Potassium 4.2 mmoL/L (3.5-5.1); Sodium 137 mmol/L (136-145); Total Protein,Serum 7.5 g/dl (6.3-8.2)
[2024-10-14 16:47] LABS: Activated Partial Thrombo Time 34.2 seconds (22.8-30.6); INR 3.16 (0.9-1.1); Prothrombin Time 31.6 seconds (10.1-12.5)
[2024-10-14 16:57] LABS: Eosinophils % 2 % (0-3); Lymphocytes % 7 % (10-50); Monocytes % 2 % (2-9); Neutrophils % 89 % (42-76); Platelet Estimate Normal; RBC Morphology Normal; Total Cells Counted 100
[2024-10-14 17:22] VITALS: BP 0/0; PULSE 88; RESP 18; TEMP 36.6
== END 2024-10-14 17:25 | disposition home or self-care (01) ==
PROVIDERS: Nurse Practitioner; Emergency Provider Emergency Medicine; PCP Internal Medicine Adolescent Medicine
DX: R07.81 Pleurodynia (principal); R07.82 Intercostal pain; Z79.01 Long term (current) use of anticoagulants; W08.XXXA Fall from other furniture, initial encounter; Y93.89 Activity, other specified; Y92.008 Other place in unspecified non-institutional (private) residence as the place of occurrence of the external cause
CPT/HCPCS: 71250; 80053; 85007; 85025; 85027; 85610; 85730; 99284

== ENCOUNTER 2024-10-25 11:53 | Outpatient (CLI) | payer MEDICARE, MEDICAID, SELFPAY ==
[2024-10-25 12:15] VITALS: BP 108/70; PULSE 80; RESP 18; TEMP 36.6; O2SAT 94
[2024-10-25] MEDS: ferumoxytoL 510 MG in 0.9 % SODIUM CHLORIDE 50 ML 268 MG IV (12:20)
[2024-10-25] MEDS: SODIUM CHLORIDE 0.9% 50ML BAG 50 ML IV (12:20)
[2024-10-25 12:30] LABS: Basophils # 0.1 K/mm3 (0-0.2); Basophils % 0.6 % (0.1-2.0); Eosinophils # 0.2 K/mm3 (0.0-0.4); Eosinophils % 2.3 % (0.1-12.0); Hematocrit 27.2 % (37.0-47.0); Hemoglobin 8.2 g/dL (12.2-16.2); Lymphocytes # 0.4 K/mm3 (0.7-4.5); Lymphocytes % 5.3 % (10-50); Mean Corpuscular HGB Conc 30.1 g/dL (31.8-35.4); Mean Corpuscular Hemoglobin 25.1 pg (27.0-31.2); Mean Corpuscular Volume 83.6 fl (81-99); Mean Platelet Volume 8.2 fl (7.4-10.4); Monocytes # 0.6 K/mm3 (0.1-1.0); Monocytes % 7.4 % (1.7-9.3); Neutrophils # 7.1 K/mm3 (1.8-7.8); Neutrophils % 84.5 % (37.0-80.0); Platelet Count 353 K/mm3 (142-424); Red Blood Count 3.25 M/mm3 (4.20-5.40); Red Cell Distribution Width 21.1 % (11.5-17.5); White Blood Count 8.4 K/mm3 (4.8-10.8)
[2024-10-25 12:51] VITALS: BP 115/71; PULSE 82; RESP 18; O2SAT 95
[2024-10-25 13:17] LABS: Prothrombin Time 49.4 seconds (10.1-12.5)
[2024-10-25 13:18] LABS: INR 5.19 (0.9-1.1)
== END 2024-10-25 12:54 | disposition home or self-care (01) ==
PROVIDERS: PCP Internal Medicine Adolescent Medicine; Visit Provider Internal Medicine Medical Oncology
DX: D50.9 Iron deficiency anemia, unspecified (principal); Z79.01 Long term (current) use of anticoagulants
CPT/HCPCS: 85025; 85610; 96365; J1642; Q0138

== ENCOUNTER 2024-11-02 09:10 | Outpatient (CLI) | payer MEDICARE, MEDICAID, SELFPAY ==
[2024-11-02] MEDS: ferumoxytoL 510 MG in 0.9 % SODIUM CHLORIDE 50 ML 268 MG IV (09:31)
[2024-11-02 09:32] VITALS: BP 100/57; PULSE 79; RESP 16; TEMP 36.8; O2SAT 95
[2024-11-02] MEDS: SODIUM CHLORIDE 0.9% 50ML BAG 50 ML IV (09:32)
[2024-11-02] MEDS: SODIUM CHLORIDE 0.9% 10ML FLUSH SYRINGE 10 ML IV ×2 (09:32→09:55)
[2024-11-02 09:50] LABS: INR 2.31 (0.9-1.1); Prothrombin Time 23.8 seconds (10.1-12.5)
[2024-11-02 09:55] VITALS: BP 100/60; PULSE 80; RESP 16; TEMP 36.8; O2SAT 96
== END 2024-11-02 09:55 | disposition home or self-care (01) ==
LOC: INF 09:10
PROVIDERS: PCP Internal Medicine Adolescent Medicine; Visit Provider Internal Medicine Medical Oncology
DX: Z79.01 Long term (current) use of anticoagulants (principal)
CPT/HCPCS: 85610; 96374; J1642; Q0138

== ENCOUNTER 2024-11-09 11:40 | Outpatient (CLI) | payer MEDICARE, MEDICAID, SELFPAY ==
[2024-11-09 12:08] VITALS: BMI 31.9
[2024-11-09 12:29] LABS: Alanine Aminotransferase 28 U/L (12-78); Albumin Level 4.3 g/dl (3.5-5.0); Albumin/Globulin Ratio 1.7 (1.1-1.8); Alkaline Phosphatase 157 U/L (38-126); Aspartate Amino Transferase 37 U/L (14-36); Bilirubin,Total 0.9 mg/dl (0.2-1.3); Blood Urea Nitrogen 56 mg/dl (7-17); Calcium 9.4 mg/dl (8.4-10.2); Carbon Dioxide 32 mmol/L (22.0-30.0); Chloride 97 mmol/L (98-107); Creatinine Clearance Estimated 36 mL/min (50-200); Estimated Glomerular Filt Rate 23 ml/min (>60); GFR (African American) 27 ML/MIN (>60); Globulin 2.6 g/dL (1.3-3.2); Glucose 181 mg/dl (74-100); Sodium 136 mmol/L (136-145); Total Protein,Serum 6.9 g/dl (6.3-8.2)
[2024-11-09 12:34] LABS: Eosinophils % 2.6 % (0.1-12.0); Hematocrit 28.8 % (37.0-47.0); Hemoglobin 8.2 g/dL (12.2-16.2); Lymphocytes # 0.3 K/mm3 (0.7-4.5); Mean Corpuscular HGB Conc 28.5 g/dL (31.8-35.4); Mean Corpuscular Hemoglobin 26.1 pg (27.0-31.2); Mean Corpuscular Volume 91.7 fl (81-99); Mean Platelet Volume 10.3 fl (7.4-10.4); Monocytes % 9.6 % (1.7-9.3); Neutrophils % 81.1 % (37.0-80.0); Platelet Count 273 K/mm3 (142-424); Red Blood Count 3.14 M/mm3 (4.20-5.40); White Blood Count 6.2 K/mm3 (4.8-10.8)
[2024-11-09 12:35] LABS: Basophils # 0.1 K/mm3 (0-0.2); Eosinophils # 0.2 K/mm3 (0.0-0.4); Monocytes # 0.6 K/mm3 (0.1-1.0)
[2024-11-09 12:37] LABS: INR 2.79 (0.9-1.1); Prothrombin Time 28.2 seconds (10.1-12.5)
[2024-11-09] MEDS: SODIUM CHLORIDE 0.9% 10ML FLUSH SYRINGE 10 ML IV (13:17)
--- NOTE | 2024-11-09 13:17 | PC.NURSE ---
pt returned from CT scan and Deaccessed at this time.
--- NOTE | 2024-11-09 13:40 | PC.NURSE ---
1200 Patient here for labs/for port to be accessed for CT scan. CBC, CMP, PT/INR collected as ordered.
== END 2024-11-09 13:20 | disposition home or self-care (01) ==
LOC: INF 11:41
PROVIDERS: PCP Internal Medicine Adolescent Medicine; Visit Provider Internal Medicine Adolescent Medicine
DX: Z79.01 Long term (current) use of anticoagulants (principal); D50.9 Iron deficiency anemia, unspecified
CPT/HCPCS: 36591; 80053; 85025; 85610; J1642

== ENCOUNTER 2024-11-14 09:02 | Emergency (ER) | payer MEDICARE, MEDICAID, SELFPAY ==
[2024-11-14 09:03] VITALS: BP 124/63; PULSE 82; RESP 20; TEMP 36.8; O2SAT 92; BMI 31.6
--- NOTE | 2024-11-14 09:11 | ED_ITS ---
Discharge Plan Disposition Patient Disposition: Home, Self-Care Prescriptions Prescriptions: No Action aspirin [Adult Low Dose Aspirin] 81 mg tablet,delayed release (DR/EC) 81 mg PO DAILY oxycodone-acetaminophen [Percocet] 10-325 mg tablet 1 tab PO QID amiodarone 200 mg tablet 200 mg PO Q24H Qty: 30 5RF alprazolam [Xanax] 0.5 mg tablet 0.5 mg PO TID potassium chloride 20 mEq tablet,ER particles/crystals 20 meq PO DAILY duloxetine 60 mg capsule,delayed release(DR/EC) 60 mg PO HS Patient Comments: TAKE (1) CAPSULE BY MOUTH ONCE A DAY. metolazone 2.5 mg tablet 2.5 mg PO DAILYP PRN (Reason: edema) azithromycin 250 mg tablet 250 mg PO DAILY ondansetron HCl 4 mg tablet 4 mg PO DAILY colchicine 0.6 mg tablet 0.6 mg PO DAILY spironolactone 50 mg tablet 50 mg PO BID Qty: 180 3RF enoxaparin [Lovenox] 100 mg/mL syringe 90 mg SQ Q12H 4 Days Qty: 7.2 0RF levothyroxine 25 MCG tablet 25 mcg PO DAILY calcitriol 0.25 mcg Capsule 0.25 mcg PO DAILY warfarin 4 mg tablet 4 mg PO SUTUWETHSA warfarin 4 mg tablet 2 mg PO MOFR insulin glargine-lixisenatide 3 ML insulin pen 60 units SQ DAILY febuxostat 40 mg tablet 40 mg PO DAILY dexlansoprazole [Dexilant] 30 mg capsule,biphase delayed releas 30 mg PO DAILY Patient Comments: TAKE (1) CAPSULE BY MOUTH ONCE A DAY. bumetanide 2 mg tablet 2 mg PO DAILY insulin glargine [Lantus Solostar U-100 Insulin] 100 unit/mL (3 mL) insulin pen 10 unit SQ HS Patient Comments: INJECT 10 UNITS SUB-Q AT BEDTIME. EACH PEN EXPIRES 28 DAYS AFTER FIRST USE. metoprolol succinate 100 mg tablet extended release 24 hr 100 mg PO BID Jardiance 10 mg tablet 10 mg PO DAILY Qty: 30 1RF Referrals Follow up/Referrals: Reji Castro MD [Primary Care Provider] - See instructions Activity Restrictions/Add. Instructions Additional Instructions/Restrictions: At this time it was felt you are safe to be discharged home. If new or worsening symptoms please do not hesitate to return the emergency department. Please use the oxymetazoline spray twice a day for 3 days in your nose on each side. Clinical Impressions Clinical Impression: Epistaxis, Headache, Anticoagulation goal of INR 2.5 to 3.5 Print Language Print Language: Honduran Discharge ED Provider: Lio Davidson General Adult HPI General Chief complaint: Recheck/Abnormal Lab/Rx Stated complaint: nosebleed Time Seen by Provider: 11/14/24 09:05 History of Present Illness HPI narrative: Patient is 59-year-old female with multiple comorbidities, previous rheumatic fever with subsequent mitral valve replacement that is mechanical in nature on warfarin who presents emergency department for evaluation of nosebleed. Onset was acute, 830 this morning, trickling from the left side of her nose. She presents here for continued evaluation due to this. Patient is also concerned about her blood levels given that she has a history of autoimmune hemolytic anemia that is required transfusion previously as well as what her INR is. She has been compliant with her medications. No other acute complaints at this time. No trauma. Related Data Home Medications ?Medication ?Instructions ?Recorded ?Confirmed aspirin 81 mg tablet,delayed 81 mg PO DAILY 12/01/17 10/05/24 release (Adult Low Dose Aspirin) oxycodone-acetaminophen 10 mg-325 1 tab PO QID 05/23/18 10/05/24 mg tablet (Percocet) alprazolam 0.5 mg tablet (Xanax) 0.5 mg PO TID 11/29/19 10/05/24 levothyroxine 25 mcg tablet 25 mcg PO DAILY 06/05/21 10/05/24 insulin glargine 100 60 units SQ DAILY 02/22/22 10/05/24 unit-lixisenatide 33 mcg/mL subcutaneous pen febuxostat 40 mg tablet 40 mg PO DAILY 02/09/23 10/05/24 potassium chloride 20 mEq 20 meq PO DAILY 04/15/23 10/05/24 tablet,extended release(part/cryst) calcitriol 0.25 mcg capsule 0.25 mcg PO DAILY 10/30/23 10/05/24 warfarin 4 mg tablet 4 mg PO SUTUWETHSA 10/31/23 10/05/24 warfarin 4 mg tablet 2 mg PO MOFR 11/25/23 10/05/24 duloxetine 60 mg capsule,delayed 60 mg PO HS 03/06/24 10/05/24 release dexlansoprazole 30 mg 30 mg PO DAILY 03/29/24 10/05/24 capsule,biphase delayed release (Dexilant) metolazone 2.5 mg tablet 2.5 mg PO DAILYP PRN edema 06/15/24 10/05/24 insulin glargine 100 unit/mL (3 10 unit SQ HS 06/27/24 10/05/24 mL) subcutaneous pen (Lantus Solostar U-100 Insulin) metoprolol succinate 100 mg 100 mg PO BID 06/27/24 10/05/24 tablet,extended release 24 hr bumetanide 2 mg tablet 2 mg PO DAILY 07/11/24 10/05/24 azithromycin 250 mg tablet 250 mg PO DAILY 10/05/24 10/05/24 colchicine 0.6 mg tablet 0.6 mg PO DAILY 10/05/24 10/05/24 ondansetron HCl 4 mg tablet 4 mg PO DAILY 10/05/24 10/05/24 Previous Rx's ?Medication ?Instructions ?Recorded enoxaparin 100 mg/mL subcutaneous 90 mg (0.9 mL) SQ Q12H 4 days #7.2 07/13/24 syringe (Lovenox) mL empagliflozin 10 mg tablet 10 mg PO DAILY #30 tabs 07/17/24 (Jardiance) amiodarone 200 mg tablet 200 mg PO Q24H #30 tabs 09/04/24 spironolactone 50 mg tablet 50 mg PO BID #180 tabs 10/05/24 Allergies Allergy/AdvReac Type Severity Reaction Status Date / Time codeine (CODEINE) Allergy Unknown nausea, Verified 10/05/24 14:23 swelling Corticosteroids Allergy Unknown Unknown Verified 10/05/24 14:23 (Glucocorticoids) allergy (CORTICOSTEROIDS reaction (GLUCOCORTICOIDS)) NSAIDS (Non-Steroidal Allergy Unknown Other Verified 10/05/24 14:23 Anti-Inflamma rosuvastatin (From CRESTOR) Allergy Unknown Unknown Verified 10/05/24 14:23 allergy reaction theophylline (From DAVID-DUR) Allergy Unknown Unknown Verified 10/05/24 14:23 allergy reaction Iodinated Contrast Media AdvReac Severe shuts Verified 10/05/24 14:23 (IODINATED CONTRAST- ORAL kidneys AND IV DYE) down and bleeding buprenorphine (From BUPRENEX) AdvReac Intermediate Nausea Verified 10/05/24 14:23 levofloxacin (From Levaquin) AdvReac Other Verified 10/05/24 14:23 lisinopril AdvReac Cough Verified 10/05/24 14:23 prednisone AdvReac Unknown Verified 10/05/24 14:23 allergy reaction sacubitril (From Entresto) AdvReac Hypotension Verified 10/05/24 14:23 valsartan (From Entresto) AdvReac Hypotension Verified 10/05/24 14:23 PFSH PFS Disclaimer: The information contained in this section may have been updated after the patient was seen, as this information can be updated by other users. 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 with INR goal of 2.5-3.5 Third degree heart block Junctional escape rhythm Current use of [facility] anticoagulation Afib HFrEF (heart failure with reduced ejection fraction) Partial tear of tendon CHF (NYHA class III, ACC/AHA stage C) Atrial fibrillation, chronic COPD exacerbation CHF exacerbation Anemia Systolic CHF Typical angina Dyspnea Rib fracture Blood transfusion reaction Autoimmune hemolytic anemia Arthritis Hernia Sinus problem Rheumatic heart disease Hypothyroidism Polyarthralgia Pulmonary edema HLD (hyperlipidemia) HTN (hypertension) CAD (coronary artery disease) DM type 2 (diabetes mellitus, type 2) DVT (deep venous thrombosis) Cardiomyopathy Arrhythmia Liver disease Thyroid disease Valvular heart disease Hypertension Hyperlipidemia GERD (gastroesophageal reflux disease) COPD (chronic obstructive pulmonary disease) Class 1 obesity CKD (chronic kidney disease) stage 3, GFR 30-59 ml/min Acute on chronic HFrEF (heart failure with reduced ejection fraction) Coronary artery disease Congestive heart failure, NYHA class III NYHA class 3 acute on chronic systolic heart failure Diabetes mellitus Hypertensive heart disease CHF (congestive heart failure) Diastolic heart failure Tricuspid valve regurgitation Surgical History Presence of biventricular AICD History of mitral valve replacement with mechanical valve Mitral valve replaced History of colon resection H/O tubal ligation History of angioplasty History of renal stent History of ureteroscopy History of tubal ligation History of hernia repair History of cardiac catheterization Family History Other Breast cancer COPD (chronic obstructive pulmonary disease) Colon cancer Family history of acute heart failure Family history of hyperlipidemia Family history of hypertension Family history of myocardial infarction Hypertension Stroke Social History (Updated 11/02/24 @ 10:41 by Kristal Mondragon RN) Smoking Status: Never smoker smoking status stop date: 01/09/2006 quit status: quit date established second hand exposure: Yes alcohol intake: never substance use type: denies use current occupational status: retired and disabled Travel in the last 8 weeks: None adopted: No caregiver/support person: No foster care: No household members: significant other housing: house lives independently: Yes marital status: life partner education level: college service: No mcc: No current occupational exposures/hazards: No sexually active: Yes how many partners: 1 are you practicing safe sex: Yes diet: diabetic well-balanced diet: about half the time caffeine: No eating out: rarely or never during the past year weight has: remained stable bhavya/church: Hinduism special bhavya needs: No agree to transfusion: Yes helmet use: No water heater temp set < 120 deg: Yes working smoke detector in home: Yes fire extinguisher in home: Yes carbon monox detector in home: Yes firearms in home: No do you feel safe at home: Yes victim of physical abuse: No victim of emotional abuse: No victim of sexual abuse: No would you like helpful sources: No Have you lived/traveled outside [place] in past 30 days?: No Contact w/someone who lives/traveled outside US past 30 days?: No Exposure to someone with infectious disease in past 14 days?: No Do you have a fever (greater than 100.4 F or 38 C)?: No Have you tested positive for COVID-19: No Exposed to someone with COVID-19 in past 14 days?: No Do you have a sore throat?: No Do you have a cough?: No Do you have any weakness?: No Do you have any diarrhea?: No Are you experiencing any unusual bleeding?: No Do you have any muscle aches/pain?: No Do you have any abdominal pain?: No Are you experiencing loss of taste or smell?: No Other Medical History Have you received the Flu Vaccine for this season: No Have you received the Pneumonia Vaccine: Yes ROS Obtained: Yes Systems reviewed as appropriate & no additional complaints except as documented Physical Exam General General appearance: alert and in no apparent distress Head Head exam: atraumatic and normocephalic Eye Eye exam: Present PERRL ENT ENT exam: Present mucous membranes moist and other (Blood oozing from the left lateral nare visualized on the lateral aspect, no arterial hemorrhage, no bleeding from the right nare) Neck Neck exam: Present normal inspection Chest Chest inspection: Present normal inspection and symmetric chest wall rise Respiratory Respiratory exam: Present normal lung sounds bilaterally; Absent respiratory distress Cardiovascular Cardiovascular exam: Present regular rate and normal rhythm Abdominal Exam Abdominal exam: Present soft Extremities Exam Extremities exam: Present normal inspection Neurological Exam Neurological exam: Present alert Psychiatric Psychiatric exam: Present normal affect Skin Skin exam: Present warm and dry Medical Decision Making Medical Records Screening: Per USPSTF and CDC recommendations, given the prevalence of disease in our region, it is our hospital?s policy to screen for HIV and viral Hepatitis for all patients aged 18 and over and those with ongoing risk factors. Jeancarlos Inquiry Pt receiving controlled substance: No Vital Signs: 11/14/24 09:03 11/14/24 09:12 Temperature 98.2 F Temperature Source Oral Pulse Rate 80 Pulse Rate [Right Radial] 82 Respiratory Rate 20 Blood Pressure 124/63 Blood Pressure [Right Arm] 124/63 Blood Pressure Mean [Right Arm] 83 02 Sat by Pulse Oximetry 92 L 95 Oxygen Delivery Method Room Air Room Air Lab Data Lab Results 11/14/24 09:20: WBC 6.0, RBC 3.14 L, Hgb 8.1 L, Hct 28.0 L, MCV 89.2, MCH 25.8 L , MCHC 28.9 L, RDW 24.3 H, Plt Count 257, MPV 10.0, Neut % (Auto) 82.1 H, Lymph % (Auto) 4.0 L, [place] % (Auto) 10.2 H, Eos % (Auto) 2.7, Baso % (Auto) 0.7, Neut # (Auto) 4.9, Lymph # (Auto) 0.2 L, [place] # (Auto) 0.6, Eos # (Auto) 0.2, Baso # (Auto) 0.0, PT 33.5 H, INR 3.37 H, Sodium 134 L, Potassium 4.5, Chloride 96 L, Carbon Dioxide 29, Anion Gap 13.5, BUN 55 H, Creatinine 1.90 H, Estimated Creat Clear 41, Estimated GFR 27 L, Est GFR ( Amer) 33 L, Glucose 229 H, Calcium 9.3, Total Bilirubin 0.7, AST 38 H, ALT 30, Alkaline Phosphatase 147 H, Total Protein 6.9, Albumin 4.3, Globulin 2.6, Albumin/Globulin Ratio 1.7 11/14/24 09:20 11/14/24 09:20 Orders (Tests/Meds): ED MEDICATIONS Generic Name Dose Route Start Last Admin Trade Name Freq PRN Reason Stop Dose Admin Acetaminophen 1,000 mg 11/14/24 10:11 Acetaminophen 500mg Tab PO 11/14/24 10:12 ONCE ONE Discontinued Medications Generic Name Dose Route Start Last Admin Trade Name Freq PRN Reason Stop Dose Admin Oxymetazoline HCl 2 ml 11/14/24 09:10 11/14/24 09:19 Oxymetazoline Nasal [place] 0.05% 15ml NS 11/14/24 09:11 2 ml ONCE ONE Administration ORDERS Category Date Time Status CBC w/Auto Diff [Complete Blood Count Auto Diff] Stat Lab 11/14/24 09:20 Completed CMP [Comprehensive Metabolic Panel] Stat Lab 11/14/24 09:20 Completed PT INR [Prothrombin Time INR] Stat Lab 11/14/24 09:20 Completed Medical Decision Narrative: In summary patient is 59-year-old female past medical history described above presents emergency department for evaluation of mitral valve replacement on warfarin, autoimmune hemolytic anemia requiring multiple transfusions, multiple other comorbidities who presents emergency department for evaluation of epistaxis. Patient is hemodynamically stable upon arrival. Differential includes anterior nosebleed secondary to supratherapeutic INR, environmental conditions, among others. No concern for posterior nosebleed based on my physical exam. Workup will be conducted with hematologic labs screening for supratherapeutic INR as well as her hemoglobin level given her history of autoimmune hemolytic anemia required multiple transfusions for which patient is concerned about. Initial inventions regarding epistaxis includes intranasal oxymetazoline and external pressure device which was applied by nursing. Hematologic labs reviewed by me, hemoglobin is 8.1 and does not transfuse normal, no thrombocytopenia, no significant leukocytosis, INR is at goal 3.37 which is within the range of 2.5-3.5. Creatinine is at baseline with stable CKD no critical electrolyte abnormality. Upon repeat evaluation patient had mild generalized headache which she attributes to her rising blood pressure for which I will give her Tylenol. She has a nonfocal neurologic exam and intracranial imaging was considered but will be deferred at this time. Upon repeat examination patient had resolution of her epistaxis and is appropriate for discharge at this time was given return precautions. Critical Care Critical Care Time Critical Care Time: No
[2024-11-14 09:12] VITALS: BP 124/63; PULSE 80; O2SAT 95
[2024-11-14] MEDS: OXYMETAZOLINE NASAL SPRAY 0.05% 15ML 2 ML NS (09:19)
[2024-11-14 09:37] LABS: Hemoglobin 8.1 g/dL (12.2-16.2); Mean Corpuscular HGB Conc 28.9 g/dL (31.8-35.4); Mean Corpuscular Hemoglobin 25.8 pg (27.0-31.2); Mean Corpuscular Volume 89.2 fl (81-99); Red Blood Count 3.14 M/mm3 (4.20-5.40)
[2024-11-14 09:38] LABS: Neutrophils % 82.1 % (37.0-80.0); Platelet Count 257 K/mm3 (142-424); Red Cell Distribution Width 24.3 % (11.5-17.5)
[2024-11-14 09:39] LABS: Basophils % 0.7 % (0.1-2.0); Eosinophils # 0.2 K/mm3 (0.0-0.4); Eosinophils % 2.7 % (0.1-12.0); Lymphocytes # 0.2 K/mm3 (0.7-4.5); Monocytes # 0.6 K/mm3 (0.1-1.0); Monocytes % 10.2 % (1.7-9.3); Neutrophils # 4.9 K/mm3 (1.8-7.8)
[2024-11-14 09:44] LABS: Albumin Level 4.3 g/dl (3.5-5.0); Chloride 96 mmol/L (98-107); Potassium 4.5 mmoL/L (3.5-5.1); Sodium 134 mmol/L (136-145)
--- NOTE | 2024-11-14 09:44 | PC.NURSE ---
I rounded on the pt and took her a cup ice per the provider. I dimmed the pts light to provide comfort. no other needs voiced. call walker in reach.
[2024-11-14 09:47] LABS: Alanine Aminotransferase 30 U/L (12-78); Albumin/Globulin Ratio 1.7 (1.1-1.8); Alkaline Phosphatase 147 U/L (38-126); Anion Gap 13.5 mEq/L (5-15); Aspartate Amino Transferase 38 U/L (14-36); Bilirubin,Total 0.7 mg/dl (0.2-1.3); Blood Urea Nitrogen 55 mg/dl (7-17); Calcium 9.3 mg/dl (8.4-10.2); Carbon Dioxide 29 mmol/L (22.0-30.0); Creatinine Clearance Estimated 41 mL/min (50-200); Estimated Glomerular Filt Rate 27 ml/min (>60); GFR (African American) 33 ML/MIN (>60); Globulin 2.6 g/dL (1.3-3.2); Glucose 229 mg/dl (74-100); Total Protein,Serum 6.9 g/dl (6.3-8.2)
[2024-11-14 09:48] LABS: INR 3.37 (0.9-1.1); Prothrombin Time 33.5 seconds (10.1-12.5)
[2024-11-14] MEDS: ACETAMINOPHEN 500MG TAB 1000 MG PO (10:13)
[2024-11-14 10:18] VITALS: BP 182/65; PULSE 80; RESP 20; TEMP 36.8; O2SAT 95
== END 2024-11-14 10:18 | disposition home or self-care (01) ==
PROVIDERS: Emergency Provider Emergency Medicine; PCP Internal Medicine Adolescent Medicine
DX: R04.0 Epistaxis (principal); R51.9 Headache, unspecified; Z51.81 Encounter for therapeutic drug level monitoring; Z79.01 Long term (current) use of anticoagulants
CPT/HCPCS: 80053; 85025; 85610; 99283

== ENCOUNTER 2024-11-17 08:39 | Outpatient (CLI) | payer MEDICARE, MEDICAID, SELFPAY ==
[2024-11-17] VITALS (11 sets, daily range): BP systolic 105–119; BP diastolic 63–74; PULSE 66–83; RESP 16–18; TEMP -17.7–37.2; O2SAT 92–95; BMI 32.5
--- NOTE | 2024-11-17 08:41 | FL_ITS ---
FINAL REPORT CLINICAL HISTORY: IRON DEFICIENCY ANEMIA ft 4:59 dap [phone] FINDINGS: UPPER GI WITH SBFT HISTORY: Iron deficiency anemia. PROCEDURE: The patient ingested barium. Effervescent crystals were also administered. 49 spot and overhead films were obtained. Additional barium was administered for a SBFT. Fluoro time: 4 minutes 59 seconds DAP: 244.44 uGy.m2 FINDINGS: UGI: No esophageal stricture is identified. There is a tiny Zenker's diverticulum. There is no hiatal hernia. There is no gastroesophageal reflux. Peristalsis is normal. There is retained debris within the stomach which limits evaluation. The stomach empties appropriately. Duodenum is unremarkable. SBFT: The image scientist film is normal. There is no evidence of obstruction. The mucosal fold pattern is normal. The terminal ilium is normal. IMPRESSION: Tiny Zenker's diverticulum. Retained debris within the stomach, consider gastroparesis. Unremarkable small bowel follow-through. Films reviewed, interpreted and dictated by Dr. Gracia. Transcribed by Edgardo Hernandez PA-C. Reviewed, Interpreted and Dictated by Urbano Gracia MD Transcribed by BEATRIS Wade Authenticated and . [facility]
[2024-11-17] MEDS: BARIUM SULFATE(LIQUID E-Z-PAQUE);355ML BOTTLE 355 ML PO (09:23)
[2024-11-17] MEDS: E-Z-GASII EFFERVESCENT GRANULES;1PK 1 EACH PO (09:24)
[2024-11-17] MEDS: BARIUM SULFATE (E-Z-HD 340GM);135ML BOTTLE 135 ML PO (09:24)
[2024-11-17 11:27] LABS: Basophils # 0.1 K/mm3 (0-0.2); Eosinophils # 0.1 K/mm3 (0.0-0.4); Eosinophils % 2.2 % (0.1-12.0); Hemoglobin 7.5 g/dL (12.2-16.2); Lymphocytes # 0.3 K/mm3 (0.7-4.5); Lymphocytes % 5.4 % (10-50); Mean Corpuscular HGB Conc 28.8 g/dL (31.8-35.4); Mean Corpuscular Hemoglobin 25.6 pg (27.0-31.2); Mean Corpuscular Volume 88.7 fl (81-99); Mean Platelet Volume 9.4 fl (7.4-10.4); Monocytes # 0.6 K/mm3 (0.1-1.0); Monocytes % 10.2 % (1.7-9.3); Neutrophils # 5.1 K/mm3 (1.8-7.8); Neutrophils % 80.7 % (37.0-80.0); Platelet Count 268 K/mm3 (142-424); Red Blood Count 2.93 M/mm3 (4.20-5.40); Red Cell Distribution Width 23.9 % (11.5-17.5); White Blood Count 6.3 K/mm3 (4.8-10.8)
[2024-11-17 12:13] LABS: Iron 54 ug/dL (37-170)
[2024-11-17 12:49] LABS: Ferritin 37.5 ng/ml (11.1-264)
[2024-11-17] MEDS: ACETAMINOPHEN 325MG TAB 650 MG (12:54)
[2024-11-17] MEDS: diphenhydrAMINE 25MG CAPSULE 25 MG PO (12:54)
[2024-11-17 13:36] LABS: Total Iron Binding Capacity 547 ug/dL (265-497)
--- NOTE | 2024-11-17 15:38 | PC.NURSE ---
1538-per md order pt does not have to wait for 1 hour post h&h; pt wants to d/c home
== END 2024-11-17 15:51 | disposition home or self-care (01) ==
LOC: RAD 08:39 → INF 11:06
PROVIDERS: Internal Medicine Medical Oncology; PCP Internal Medicine Adolescent Medicine; Visit Provider Nurse Practitioner Family
DX: D64.9 Anemia, unspecified (principal)
CPT/HCPCS: 36430; 36591; 74246; 74248; 82728; 83540; 83550; 85025; 86850; J1642; P9016

== ENCOUNTER 2024-11-21 10:16 | Outpatient (CLI) | payer MEDICARE, MEDICAID, SELFPAY ==
[2024-11-21] VITALS (11 sets, daily range): BP systolic 108–132; BP diastolic 64–88; PULSE 79–80; RESP 14–18; TEMP 36.6–36.9; O2SAT 98–100; BMI 32.5
[2024-11-21 10:56] LABS: Basophils # 0.1 K/mm3 (0-0.2); Eosinophils # 0.1 K/mm3 (0.0-0.4); Eosinophils % 2.3 % (0.1-12.0); Hematocrit 26.1 % (37.0-47.0); Hemoglobin 7.5 g/dL (12.2-16.2); Lymphocytes # 0.3 K/mm3 (0.7-4.5); Lymphocytes % 4.3 % (10-50); Mean Corpuscular HGB Conc 28.7 g/dL (31.8-35.4); Mean Corpuscular Hemoglobin 24.8 pg (27.0-31.2); Mean Corpuscular Volume 86.4 fl (81-99); Mean Platelet Volume 9.6 fl (7.4-10.4); Monocytes # 0.5 K/mm3 (0.1-1.0); Monocytes % 8.5 % (1.7-9.3); Neutrophils # 5.1 K/mm3 (1.8-7.8); Neutrophils % 83.2 % (37.0-80.0); Platelet Count 261 K/mm3 (142-424); Red Blood Count 3.02 M/mm3 (4.20-5.40); Red Cell Distribution Width 22.3 % (11.5-17.5); White Blood Count 6.1 K/mm3 (4.8-10.8)
[2024-11-21] MEDS: ACETAMINOPHEN 325MG TAB 650 MG PO (12:07)
[2024-11-21] MEDS: diphenhydrAMINE 25MG CAPSULE 25 MG PO (12:07)
[2024-11-21] MEDS: 0.9 % SODIUM CHLORIDE 250 ML 25 ML IV (12:23)
[2024-11-21] MEDS: SODIUM CHLORIDE 0.9% 10ML FLUSH SYRINGE 10 ML IV (16:10)
== END 2024-11-21 16:00 | disposition home or self-care (01) ==
LOC: INF 10:17
PROVIDERS: PCP Internal Medicine Adolescent Medicine; Visit Provider Internal Medicine Medical Oncology
DX: Z95.2 Presence of prosthetic heart valve (principal)
CPT/HCPCS: 36430; 85025; 86850; J1642; P9016

== ENCOUNTER 2024-11-29 09:14 | Outpatient (CLI) | payer MEDICARE, MEDICAID, SELFPAY ==
[2024-11-29 09:24] VITALS: BMI 32.5
[2024-11-29 09:47] LABS: Basophils # 0.1 K/mm3 (0-0.2); Basophils % 0.7 % (0.1-2.0); Eosinophils # 0.2 K/mm3 (0.0-0.4); Eosinophils % 2.2 % (0.1-12.0); Hematocrit 24.8 % (37.0-47.0); Hemoglobin 7.1 g/dL (12.2-16.2); Lymphocytes # 0.4 K/mm3 (0.7-4.5); Lymphocytes % 5.3 % (10-50); Mean Corpuscular HGB Conc 28.6 g/dL (31.8-35.4); Mean Corpuscular Hemoglobin 24.5 pg (27.0-31.2); Mean Corpuscular Volume 85.5 fl (81-99); Mean Platelet Volume 9.5 fl (7.4-10.4); Monocytes # 0.6 K/mm3 (0.1-1.0); Monocytes % 8.9 % (1.7-9.3); Neutrophils # 5.6 K/mm3 (1.8-7.8); Neutrophils % 82.3 % (37.0-80.0); Platelet Count 294 K/mm3 (142-424); Red Cell Distribution Width 21.2 % (11.5-17.5); White Blood Count 6.8 K/mm3 (4.8-10.8)
[2024-11-29 10:01] LABS: INR 3.81 (0.9-1.1); Prothrombin Time 37.4 seconds (10.1-12.5)
[2024-11-29 10:20] VITALS: BP 114/68; PULSE 80; RESP 18; TEMP 36.4; O2SAT 95
[2024-11-29] MEDS: SODIUM CHLORIDE 0.9% 50ML BAG 50 ML IV (10:20)
[2024-11-29] MEDS: ferumoxytoL 510 MG in 0.9 % SODIUM CHLORIDE 50 ML 268 MG IV (10:21)
[2024-11-29] MEDS: SODIUM CHLORIDE 0.9% 10ML FLUSH SYRINGE 10 ML IV (10:21)
--- NOTE | 2024-11-29 10:54 | HMH.PHAINT1 ---
Pharmacy Intervention Comments: INR 3.81, GETTING BLOOD TOMORROW, TAKING WARFARIN 2 MG Wed THIS WEEK THEN 4 MG ON , 2 MG ON .
[2024-11-29 11:05] VITALS: BP 113/64; PULSE 80; RESP 18; O2SAT 96
== END 2024-11-29 11:05 | disposition home or self-care (01) ==
LOC: INF 09:15
PROVIDERS: PCP Internal Medicine Adolescent Medicine; Visit Provider Internal Medicine Medical Oncology
DX: D64.9 Anemia, unspecified (principal); Z79.01 Long term (current) use of anticoagulants
CPT/HCPCS: 85025; 85610; 86850; 96365; J1642; Q0138

== ENCOUNTER 2024-11-30 09:06 | Outpatient (CLI) | payer MEDICARE, MEDICAID, SELFPAY ==
[2024-11-30] VITALS (10 sets, daily range): BP systolic 110–132; BP diastolic 59–86; PULSE 71–80; RESP 17–19; TEMP 36.8–37.1; O2SAT 97–99
[2024-11-30] MEDS: diphenhydrAMINE 25MG CAPSULE 25 MG PO (09:25)
[2024-11-30] MEDS: ACETAMINOPHEN 325MG TAB 650 MG PO (09:25)
[2024-11-30] MEDS: 0.9 % SODIUM CHLORIDE 250 ML 125 ML IV (09:45)
[2024-11-30] MEDS: SODIUM CHLORIDE 0.9% 10ML FLUSH SYRINGE 10 ML IV (09:55)
== END 2024-11-30 13:00 | disposition home or self-care (01) ==
LOC: INF 09:08
PROVIDERS: PCP Internal Medicine Adolescent Medicine; Visit Provider Internal Medicine Medical Oncology
DX: D64.9 Anemia, unspecified (principal)
CPT/HCPCS: 36430; J1642; P9016

== ENCOUNTER 2024-12-05 08:56 | Outpatient (CLI) | payer MEDICARE, MEDICAID, SELFPAY ==
[2024-12-05 08:56] VITALS: BMI 32.5
[2024-12-05 09:18] LABS: Basophils # 0.1 K/mm3 (0-0.2); Basophils % 0.6 % (0.1-2.0); Eosinophils # 0.2 K/mm3 (0.0-0.4); Eosinophils % 2.8 % (0.1-12.0); Hematocrit 27.6 % (37.0-47.0); Hemoglobin 7.9 g/dL (12.2-16.2); Lymphocytes # 0.3 K/mm3 (0.7-4.5); Lymphocytes % 3.4 % (10-50); Mean Corpuscular HGB Conc 28.6 g/dL (31.8-35.4); Mean Corpuscular Hemoglobin 25.6 pg (27.0-31.2); Mean Corpuscular Volume 89.3 fl (81-99); Mean Platelet Volume 9.7 fl (7.4-10.4); Monocytes # 0.8 K/mm3 (0.1-1.0); Monocytes % 9.5 % (1.7-9.3); Neutrophils # 6.6 K/mm3 (1.8-7.8); Neutrophils % 82.9 % (37.0-80.0); Platelet Count 258 K/mm3 (142-424); Red Blood Count 3.09 M/mm3 (4.20-5.40); White Blood Count 7.9 K/mm3 (4.8-10.8)
[2024-12-05] MEDS: ferumoxytoL 510 MG in 0.9 % SODIUM CHLORIDE 50 ML 268 MG IV (09:20)
[2024-12-05] MEDS: SODIUM CHLORIDE 0.9% 50ML BAG 50 ML IV (09:21)
[2024-12-05 09:27] VITALS: BP 119/71; PULSE 80; RESP 20; TEMP 36.2; O2SAT 93
[2024-12-05 09:38] LABS: Red Cell Distribution Width 25.2 % (11.5-17.5)
[2024-12-05 10:44] VITALS: BP 120/72; PULSE 68; RESP 20; TEMP 36.9; O2SAT 93
== END 2024-12-05 10:47 | disposition home or self-care (01) ==
LOC: INF 08:57
PROVIDERS: PCP Internal Medicine Adolescent Medicine; Visit Provider Internal Medicine Medical Oncology
DX: D64.9 Anemia, unspecified (principal)
CPT/HCPCS: 85025; 96365; Q0138

== ENCOUNTER 2024-12-12 09:03 | Outpatient (CLI) | payer MEDICARE, MEDICAID, SELFPAY ==
[2024-12-12 09:21] VITALS: BMI 32.8
[2024-12-12 09:44] LABS: Basophils % 0.6 % (0.1-2.0); Eosinophils # 0.2 K/mm3 (0.0-0.4); Eosinophils % 2.6 % (0.1-12.0); Hemoglobin 8.1 g/dL (12.2-16.2); Lymphocytes # 0.4 K/mm3 (0.7-4.5); Lymphocytes % 6.7 % (10-50); Mean Corpuscular HGB Conc 28.9 g/dL (31.8-35.4); Mean Corpuscular Hemoglobin 27.1 pg (27.0-31.2); Mean Corpuscular Volume 93.6 fl (81-99); Mean Platelet Volume 9.7 fl (7.4-10.4); Monocytes # 0.7 K/mm3 (0.1-1.0); Monocytes % 10.9 % (1.7-9.3); Neutrophils # 4.8 K/mm3 (1.8-7.8); Neutrophils % 78.4 % (37.0-80.0); Platelet Count 228 K/mm3 (142-424); Red Blood Count 2.99 M/mm3 (4.20-5.40); White Blood Count 6.2 K/mm3 (4.8-10.8)
[2024-12-12] MEDS: SODIUM CHLORIDE 0.9% 10ML FLUSH SYRINGE 10 ML IV (09:45)
[2024-12-12] MEDS: SODIUM CHLORIDE 0.9% 50ML BAG 50 ML IV (09:45)
[2024-12-12 09:50] LABS: Red Cell Distribution Width 26.2 % (11.5-17.5)
[2024-12-12 10:07] LABS: INR 3.59 (0.9-1.1); Prothrombin Time 34.8 seconds (9.2-12.1)
[2024-12-12 10:09] VITALS: BP 110/69; PULSE 75; RESP 18; TEMP 36.4; O2SAT 97
[2024-12-12] MEDS: ferumoxytoL 510 MG in 0.9 % SODIUM CHLORIDE 50 ML 268 MG IV (10:09)
[2024-12-12 10:30] VITALS: BP 122/79; PULSE 80; RESP 18; O2SAT 98
== END 2024-12-12 10:30 | disposition home or self-care (01) ==
LOC: INF 09:04
PROVIDERS: PCP Internal Medicine Adolescent Medicine; Visit Provider Internal Medicine Medical Oncology
DX: D64.9 Anemia, unspecified (principal); Z79.01 Long term (current) use of anticoagulants
CPT/HCPCS: 85025; 85610; 96365; 99211; G0463; J1642; Q0138

== ENCOUNTER 2024-12-15 17:01 | Emergency (ER) | payer MEDICARE, MEDICAID, SELFPAY ==
[2024-12-15 17:01] VITALS: BP 110/62; PULSE 100; RESP 16; TEMP 36.6; O2SAT 100
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
--- NOTE | 2024-12-15 17:12 | ECG_ITS ---
APPROVED REPORT Exam: Resting ECG HR:80 bpm ECG Measurements Heart Rate 80 AXES QRSd 206 QRS 245 QT 490 T 94 QTc 526 Conclusion ELECTRONIC VENTRICULAR PACEMAKER Electronically signed by : JAQUAN CATHERINE, 12/15/2024 23:57:15
--- NOTE | 2024-12-15 17:14 | PC.NURSE ---
I spoke with [facility]. [facility] accepted. they are 21 minutes out.
[2024-12-15 17:15] LABS: Basophils # 0.1 K/mm3 (0-0.2); Basophils % 0.7 % (0.1-2.0); Eosinophils # 0.2 K/mm3 (0.0-0.4); Eosinophils % 2.6 % (0.1-12.0); Hematocrit 32.2 % (37.0-47.0); Lymphocytes # 0.4 K/mm3 (0.7-4.5); Lymphocytes % 4.2 % (10-50); Mean Corpuscular Hemoglobin 26.9 pg (27.0-31.2); Mean Corpuscular Volume 96.1 fl (81-99); Monocytes # 0.9 K/mm3 (0.1-1.0); Monocytes % 9.9 % (1.7-9.3); Neutrophils # 7.2 K/mm3 (1.8-7.8); Neutrophils % 81.9 % (37.0-80.0); Platelet Count 281 K/mm3 (142-424); Red Blood Count 3.35 M/mm3 (4.20-5.40); White Blood Count 8.8 K/mm3 (4.8-10.8)
--- NOTE | 2024-12-15 17:15 | PC.NURSE ---
PT REMAINS IN C COLLAR, CALL LIGHT WITHIN REACH. ADDITIONAL WARMS BLANKETS PROVIDED.
[2024-12-15 17:18] LABS: Red Cell Distribution Width 25.6 % (11.5-17.5)
[2024-12-15] MEDS: TET/DIPHTH/PERT-ADULT 0.5ML SYRINGE 0.5 ML IM (17:18)
[2024-12-15] MEDS: ONDANSETRON 4MG/2ML VIAL 4 MG IV (17:18)
[2024-12-15] MEDS: MORPHINE 4MG/ML SYRINGE 4 MG IV (17:19)
--- NOTE | 2024-12-15 17:21 | PC.NURSE ---
REPORT CALLED TO RODNEY AT ED
[2024-12-15 17:22] LABS: Albumin Level 4.6 g/dl (3.5-5.0); Chloride 93 mmol/L (98-107)
[2024-12-15 17:23] LABS: INR 3.59 (0.9-1.1); Prothrombin Time 34.8 seconds (9.2-12.1); Sodium 137 mmol/L (136-145)
[2024-12-15 17:25] LABS: Alanine Aminotransferase 25 U/L (12-78); Albumin/Globulin Ratio 1.6 (1.1-1.8); Alkaline Phosphatase 112 U/L (38-126); Aspartate Amino Transferase 39 U/L (14-36); Bilirubin,Total 0.9 mg/dl (0.2-1.3); Blood Urea Nitrogen 49 mg/dl (7-17); Carbon Dioxide 31 mmol/L (22.0-30.0); Estimated Glomerular Filt Rate 27 ml/min (>60); GFR (African American) 33 ML/MIN (>60); Globulin 2.8 g/dL (1.3-3.2); Total Protein,Serum 7.4 g/dl (6.3-8.2)
[2024-12-15 17:26] LABS: Calcium 9.7 mg/dl (8.4-10.2); Glucose 137 mg/dl (74-100); Lipase 225 U/L (23-300)
[2024-12-15 17:29] LABS: Ethyl Alcohol < 10 mg/dl (0-10)
--- NOTE | 2024-12-15 17:31 | PC.NURSE ---
[facility] CONTACTED AT THIS TIME FOR TRANSFER TO , WILL CONTACT [facility] FOR FLIGHT, WILL CALL BACK
[2024-12-15 17:32] LABS: Lactic Acid 1.8 mmol/L (0.7-2.1)
[2024-12-15 17:45] VITALS: BP 118/60; PULSE 80; RESP 18; TEMP 36.6; O2SAT 95
[2024-12-15 17:47] LABS: Troponin I < 0.01 ng/ml (0.00-0.034)
--- NOTE | 2024-12-15 17:47 | PC.NURSE ---
REPORT GIVEN TO [facility], [facility]
== END 2024-12-15 17:54 | disposition short-term general hospital (02) ==
LOC: ER 17:33
PROVIDERS: Emergency Provider Emergency Medicine
DX: T07.XXXA Unspecified multiple injuries, initial encounter (principal); R07.9 Chest pain, unspecified; R51.9 Headache, unspecified; R10.9 Unspecified abdominal pain; M54.9 Dorsalgia, unspecified; M79.605 Pain in left leg; Z23 Encounter for immunization; V89.0XXA Person injured in unspecified motor-vehicle accident, nontraffic, initial encounter; Y93.89 Activity, other specified
CPT/HCPCS: 71045; 72170; 80053; 80320; 83605; 83690; 84484; 85025; 85610; 85730; 90471; 90715; 93005; 96374; 96375; 99291; G0480; J2270; J2405

== ENCOUNTER 2024-12-18 08:31 | Outpatient (CLI) | payer MEDICARE, MEDICAID, SELFPAY ==
[2024-12-18 08:39] VITALS: BMI 32.5
[2024-12-18 09:03] LABS: Basophils % 0.6 % (0.1-2.0); Eosinophils # 0.2 K/mm3 (0.0-0.4); Eosinophils % 2.2 % (0.1-12.0); Hematocrit 29.2 % (37.0-47.0); Hemoglobin 8.3 g/dL (12.2-16.2); Lymphocytes # 0.3 K/mm3 (0.7-4.5); Lymphocytes % 4.4 % (10-50); Mean Corpuscular HGB Conc 28.4 g/dL (31.8-35.4); Mean Corpuscular Hemoglobin 27.2 pg (27.0-31.2); Mean Corpuscular Volume 95.7 fl (81-99); Monocytes # 0.7 K/mm3 (0.1-1.0); Monocytes % 9.5 % (1.7-9.3); Neutrophils % 82.6 % (37.0-80.0); Platelet Count 268 K/mm3 (142-424); Red Blood Count 3.05 M/mm3 (4.20-5.40); White Blood Count 7.3 K/mm3 (4.8-10.8)
[2024-12-18] MEDS: SODIUM CHLORIDE 0.9% 10ML FLUSH SYRINGE 10 ML IV (09:55)
[2024-12-18 10:22] LABS: INR 2.89 (0.9-1.1); Prothrombin Time 28.6 seconds (9.2-12.1)
== END 2024-12-18 09:55 | disposition home or self-care (01) ==
LOC: INF 08:31
PROVIDERS: PCP Internal Medicine Adolescent Medicine; Visit Provider Internal Medicine Medical Oncology
DX: D64.9 Anemia, unspecified (principal); Z45.2 Encounter for adjustment and management of vascular access device; Z79.01 Long term (current) use of anticoagulants
CPT/HCPCS: 36591; 85025; 85610; J1642

== ENCOUNTER 2024-12-26 09:40 | Outpatient (CLI) | payer MEDICARE, MEDICAID, SELFPAY ==
[2024-12-26] VITALS (10 sets, daily range): BP systolic 94–112; BP diastolic 54–67; PULSE 80–87; RESP 20; TEMP 36.4–36.6; O2SAT 94–96; BMI 32.8
[2024-12-26 10:25] LABS: Basophils # 0.1 K/mm3 (0-0.2); Basophils % 0.9 % (0.1-2.0); Eosinophils # 0.1 K/mm3 (0.0-0.4); Eosinophils % 1.9 % (0.1-12.0); Hematocrit 25.3 % (37.0-47.0); Hemoglobin 7.3 g/dL (12.2-16.2); Lymphocytes # 0.3 K/mm3 (0.7-4.5); Lymphocytes % 4.9 % (10-50); Mean Corpuscular HGB Conc 28.9 g/dL (31.8-35.4); Mean Corpuscular Hemoglobin 26.4 pg (27.0-31.2); Mean Corpuscular Volume 91.7 fl (81-99); Mean Platelet Volume 10.2 fl (7.4-10.4); Monocytes # 0.6 K/mm3 (0.1-1.0); Monocytes % 10.9 % (1.7-9.3); Neutrophils # 4.7 K/mm3 (1.8-7.8); Neutrophils % 80.7 % (37.0-80.0); Platelet Count 274 K/mm3 (142-424); Red Blood Count 2.76 M/mm3 (4.20-5.40); Red Cell Distribution Width 22.7 % (11.5-17.5); White Blood Count 5.8 K/mm3 (4.8-10.8)
[2024-12-26 10:46] LABS: INR 3.97 (0.9-1.1); Prothrombin Time 38.1 seconds (9.2-12.1)
[2024-12-26 11:20] LABS: PHA INR Fingerstick 4.2 (0.9-1.1)
[2024-12-26] MEDS: ACETAMINOPHEN 325MG TAB 650 MG (11:28)
[2024-12-26] MEDS: diphenhydrAMINE 25MG CAPSULE 25 MG PO (11:29)
[2024-12-26] MEDS: 0.9 % SODIUM CHLORIDE 250 ML 25 ML IV (11:29)
--- NOTE | 2024-12-26 11:34 | PC.NURSE ---
12/26/23 1129 Pt premedicated using benadryl and tylenol per order. Type and crossmatch done with lab witness, awaiting unit to transfuse.
== END 2024-12-26 15:00 | disposition home or self-care (01) ==
LOC: ACC 09:41 → INF 11:26
PROVIDERS: PCP Internal Medicine Adolescent Medicine; Visit Provider Internal Medicine Medical Oncology
DX: D64.9 Anemia, unspecified (principal); Z79.01 Long term (current) use of anticoagulants
CPT/HCPCS: 36430; 85025; 85610; 86850; 99211; G0463; J1642; P9016

== ENCOUNTER 2025-01-02 09:50 | Outpatient (CLI) | payer MEDICARE, MEDICAID, SELFPAY ==
[2025-01-02] VITALS (20 sets, daily range): BP systolic 99–126; BP diastolic 41–81; PULSE 79–84; RESP 16–20; TEMP 36.7–37; O2SAT 96–98; BMI 32.8
[2025-01-02 10:10] LABS: Basophils # 0.1 K/mm3 (0-0.2); Basophils % 0.8 % (0.1-2.0); Eosinophils # 0.2 K/mm3 (0.0-0.4); Eosinophils % 1.9 % (0.1-12.0); Lymphocytes # 0.3 K/mm3 (0.7-4.5); Lymphocytes % 3.9 % (10-50); Mean Corpuscular HGB Conc 29.1 g/dL (31.8-35.4); Mean Corpuscular Hemoglobin 25.3 pg (27.0-31.2); Mean Corpuscular Volume 86.8 fl (81-99); Mean Platelet Volume 9.2 fl (7.4-10.4); Monocytes # 0.9 K/mm3 (0.1-1.0); Monocytes % 10.2 % (1.7-9.3); Neutrophils % 82.5 % (37.0-80.0); Platelet Count 316 K/mm3 (142-424); Red Blood Count 2.65 M/mm3 (4.20-5.40); Red Cell Distribution Width 21.5 % (11.5-17.5); White Blood Count 8.4 K/mm3 (4.8-10.8)
[2025-01-02 10:17] LABS: Hemoglobin 6.7 g/dL (12.2-16.2)
[2025-01-02 10:21] LABS: Albumin Level 4.2 g/dl (3.5-5.0); Chloride 92 mmol/L (98-107); Potassium 5.4 mmoL/L (3.5-5.1); Sodium 131 mmol/L (136-145)
[2025-01-02 10:24] LABS: Alanine Aminotransferase 21 U/L (12-78); Albumin/Globulin Ratio 1.8 (1.1-1.8); Alkaline Phosphatase 150 U/L (38-126); Anion Gap 15.4 mEq/L (5-15); Aspartate Amino Transferase 24 U/L (14-36); Bilirubin,Total 0.7 mg/dl (0.2-1.3); Blood Urea Nitrogen 77 mg/dl (7-17); Carbon Dioxide 29 mmol/L (22.0-30.0); Creatinine Clearance Estimated 34 mL/min (50-200); Estimated Glomerular Filt Rate 21 ml/min (>60); GFR (African American) 25 ML/MIN (>60); Globulin 2.4 g/dL (1.3-3.2); Glucose 214 mg/dl (74-100); Total Protein,Serum 6.6 g/dl (6.3-8.2)
--- NOTE | 2025-01-02 10:41 | PC.NURSE ---
1035 Lab staff Fiona Barth with pt and self as witness to blood draw. Blood drawn from pac line for type and crossmatch. Pac flushed with saline and set to sl. Pt ambulated to md clinic for appt. Pt to return for blood transfusion.
[2025-01-02] MEDS: diphenhydrAMINE 25MG CAPSULE 25 MG PO (11:30)
[2025-01-02] MEDS: ACETAMINOPHEN 325MG TAB 650 MG PO (11:30)
[2025-01-02] MEDS: 0.9 % SODIUM CHLORIDE 250 ML 25 ML IV (11:41)
[2025-01-02 13:23] LABS: Iron 32 ug/dL (37-170)
[2025-01-02 13:33] LABS: Total Iron Binding Capacity 475 ug/dL (265-497)
[2025-01-02 14:01] LABS: Ferritin 33.1 ng/ml (11.1-264)
[2025-01-02] MEDS: SODIUM CHLORIDE 0.9% 10ML FLUSH SYRINGE 10 ML IV (16:29)
[2025-01-02 17:04] LABS: INR 3.12 (0.9-1.1); Prothrombin Time 30.7 seconds (9.2-12.1)
--- NOTE | 2025-01-03 09:21 | HMH.PHAINT1 ---
Pharmacy Intervention Comments: 01/03/25--INR 3.12 TODAY. RECOMMENDED PATIENT CONTINUE WITH WARFARIN 4 MG ON MON/FRI; 2 MG ON WED/WED/WED/WED/SAT.
== END 2025-01-02 17:11 | disposition home or self-care (01) ==
LOC: INF 09:50
PROVIDERS: PCP Internal Medicine Adolescent Medicine; Visit Provider Internal Medicine Medical Oncology
DX: D64.9 Anemia, unspecified (principal); Z79.01 Long term (current) use of anticoagulants
CPT/HCPCS: 36430; 80053; 82728; 83540; 83550; 85025; 85610; 86850; J1642; P9016

== ENCOUNTER 2025-01-04 08:45 | Outpatient (CLI) | payer MEDICARE, MEDICAID, SELFPAY ==
[2025-01-04 09:08] VITALS: BMI 32.5
[2025-01-04 09:21] LABS: Basophils # 0.1 K/mm3 (0-0.2); Basophils % 0.6 % (0.1-2.0); Eosinophils # 0.2 K/mm3 (0.0-0.4); Eosinophils % 1.9 % (0.1-12.0); Hematocrit 26.2 % (37.0-47.0); Hemoglobin 7.8 g/dL (12.2-16.2); Lymphocytes # 0.3 K/mm3 (0.7-4.5); Mean Corpuscular HGB Conc 29.8 g/dL (31.8-35.4); Mean Corpuscular Hemoglobin 25.3 pg (27.0-31.2); Mean Corpuscular Volume 85.1 fl (81-99); Mean Platelet Volume 9.9 fl (7.4-10.4); Monocytes # 1.1 K/mm3 (0.1-1.0); Neutrophils # 8.9 K/mm3 (1.8-7.8); Neutrophils % 83.8 % (37.0-80.0); Platelet Count 328 K/mm3 (142-424); Red Blood Count 3.08 M/mm3 (4.20-5.40); Red Cell Distribution Width 20.1 % (11.5-17.5); White Blood Count 10.6 K/mm3 (4.8-10.8)
[2025-01-04 09:30] LABS: Chloride 89 mmol/L (98-107); Potassium 4.6 mmoL/L (3.5-5.1); Sodium 132 mmol/L (136-145)
[2025-01-04 09:33] LABS: Carbon Dioxide 32 mmol/L (22.0-30.0); Creatinine Clearance Estimated 40 mL/min (50-200); Estimated Glomerular Filt Rate 25 ml/min (>60); GFR (African American) 31 ML/MIN (>60)
[2025-01-04 09:34] LABS: Anion Gap 15.6 mEq/L (5-15); Calcium 9.4 mg/dl (8.4-10.2); Glucose 204 mg/dl (74-100)
[2025-01-04 09:35] LABS: Blood Urea Nitrogen 82 mg/dl (7-17)
--- NOTE | 2025-01-04 14:58 | PC.NURSE ---
[id number] Patient transported to ED via wheelchair/ patient to be evaluated related to today's lab results, BUN 82. Report to Lauren Salcedo, JEREMIAH/ left in care of ED staff at bedside/stable VS upon transfer to ED 108/64, resp 18, temp 98.0, O2 sat 97% room air, pulse 80.
== END 2025-01-04 09:55 | disposition home or self-care (01) ==
LOC: INF 08:46
PROVIDERS: PCP Internal Medicine Adolescent Medicine; Visit Provider Internal Medicine Medical Oncology
DX: D64.9 Anemia, unspecified (principal)
CPT/HCPCS: 36591; 80048; 85025; 86850

== ENCOUNTER 2025-01-04 10:12 | Observation (INO) | payer MEDICARE, MEDICAID, SELFPAY ==
[2025-01-04] VITALS (10 sets, daily range): BP systolic 102–129; BP diastolic 57–82; PULSE 79–81; RESP 16–18; TEMP 36.4–37; O2SAT 95–98; BMI 26.6; BMI 29.8
--- NOTE | 2025-01-04 11:11 | PC.NURSE ---
ROUNDED ON THE PT. THE PT VOICES THAT SHE DOES NOT NEED ANYTHING AT THIS TIME. CALL LIGHT IS WITHIN REACH OF THE PT.
--- NOTE | 2025-01-04 11:16 | PC.NURSE ---
dr ervin speaking with dr rodas
--- NOTE | 2025-01-04 11:22 | PC.NURSE ---
assisted pt to restroom, sent sample to lab for collection.
[2025-01-04 11:27] LABS: Microscopic, Urine URINE MICROSCOPIC (MICROSCOPIC)
--- NOTE | 2025-01-04 11:31 | CT_ITS ---
FINAL REPORT TECHNIQUE: Noncontrast CT exam of the abdomen and pelvis. This study was performed with techniques to keep radiation doses as low as reasonably achievable (ALARA). Individualized dose reduction techniques using automated exposure control or adjustment of mA and/or kV according to the patient''s size were employed. CLINICAL HISTORY: abd pain/n, no BM in days COMPARISON: 11/09/2024 FINDINGS: Abdomen: There is mild hepatomegaly. There is enlargement of the IVC and hepatic veins likely due to elevated central venous pressure. A right adrenal mass is seen measuring approximately 4 cm, unchanged from prior exam. Spleen, pancreas and left adrenal gland have a normal CT appearance in their limited unenhanced state. There is mild diffuse fecal impaction without evidence of bowel obstruction. The kidneys show no stone disease or obstruction. No obvious renal mass is present. No ureteral stones are present. Pelvis: No distal ureteral stones are seen. Bladder is unremarkable. Mild, diffuse fecal impaction is seen. There is a left ovarian cyst measuring 3 cm, unchanged from prior exam. Right ovary and uterus are normal. No fluid collection or adenopathy is seen. IMPRESSION: Chronic changes as above. No acute findings. Reviewed, Interpreted and Dictated by Abiel Land MD Transcribed by Phylicia Walker Authenticated and [facility]
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
[2025-01-04 11:41] LABS: Appearance,Urine CLEAR (Clear); Bilirubin,Urine Negative (Negative); Blood, Urine Negative (Negative); Color,Urine YELLOW (Yellow); Glucose,Urine (UA) 1+ (Negative); Ketones,Urine Negative (Negative); Leukocyte Esterase,Urine Negative (Negative); Nitrate,Urine Negative (Negative); PH,Urine 6.5 (5.0-8.5); Protein,Urine Negative (Negative); Urobilinogen,Urine 0.2 EU/dl (0.2)
--- NOTE | 2025-01-04 12:07 | PC.NURSE ---
pt going to CT
[2025-01-04 12:17] LABS: Occult Blood,Stool Positive (Negative)
--- NOTE | 2025-01-04 12:22 | PC.NURSE ---
pt back in room from ct scan
--- NOTE | 2025-01-04 12:48 | PC.NURSE ---
Spoke to Reina with surgery. States that Dr. Mathew will not do her EGD today. Will be performed at 7am tomorrow morning.
[2025-01-04 12:57] LABS: Basophils # 0.1 K/mm3 (0-0.2); Basophils % 0.7 % (0.1-2.0); Eosinophils # 0.2 K/mm3 (0.0-0.4); Eosinophils % 2.2 % (0.1-12.0); Hematocrit 25.3 % (37.0-47.0); Hemoglobin 7.6 g/dL (12.2-16.2); Lymphocytes # 0.4 K/mm3 (0.7-4.5); Lymphocytes % 4.8 % (10-50); Mean Corpuscular Hemoglobin 25.5 pg (27.0-31.2); Mean Corpuscular Volume 84.9 fl (81-99); Monocytes # 0.8 K/mm3 (0.1-1.0); Monocytes % 9.8 % (1.7-9.3); Neutrophils % 81.8 % (37.0-80.0); Platelet Count 301 K/mm3 (142-424); Red Blood Count 2.98 M/mm3 (4.20-5.40); Red Cell Distribution Width 20.3 % (11.5-17.5); Reticulocyte % (Auto) 4.3 % (0.9-3.2); White Blood Count 8.6 K/mm3 (4.8-10.8)
--- NOTE | 2025-01-04 13:06 | PC.NURSE ---
ROUNDED ON THE PT. THE PT VOICES THAT SHE DOES NOT NEED ANYTHING AT THIS TIME. CALL LIGHT IS WITHIN REACH OF THE PT.
[2025-01-04 13:09] LABS: Alanine Aminotransferase 24 U/L (12-78); Albumin Level 4.5 g/dl (3.5-5.0); Albumin/Globulin Ratio 1.8 (1.1-1.8); Alkaline Phosphatase 133 U/L (38-126); Aspartate Amino Transferase 27 U/L (14-36); Bilirubin,Total 1.1 mg/dl (0.2-1.3); Calcium 9.8 mg/dl (8.4-10.2); Carbon Dioxide 33 mmol/L (22.0-30.0); Chloride 87 mmol/L (98-107); Creatinine Clearance Estimated 34 mL/min (50-200); Estimated Glomerular Filt Rate 25 ml/min (>60); GFR (African American) 31 ML/MIN (>60); Globulin 2.5 g/dL (1.3-3.2); Glucose 134 mg/dl (74-100); Lactic Acid 1.2 mmol/L (0.7-2.1); Sodium 134 mmol/L (136-145)
[2025-01-04] MEDS: IRON SUCROSE COMPLEX 200 MG in 0.9 % SODIUM CHLORIDE 100 ML 220 MG IV (13:09)
[2025-01-04 13:11] LABS: Activated Partial Thrombo Time 33.9 seconds (22.5-28.5); INR 3.31 (0.9-1.1); Prothrombin Time 32.3 seconds (9.2-12.1)
[2025-01-04 13:14] LABS: Blood Urea Nitrogen 82 mg/dl (7-17)
--- NOTE | 2025-01-04 13:14 | PC.NURSE ---
[employer] notified of admission.
[2025-01-04 13:33] LABS: Lactate Dehydrogenase 216 U/L (313-618)
--- NOTE | 2025-01-04 14:04 | HMH.PHAINT1 ---
Pharmacy Intervention Comments: HOME MEDICATION LIST VERIFIED USING LIST FROM OUTPATIENT PHARMACY
--- NOTE | 2025-01-04 14:29 | P.CONS_ITS ---
History of Present Illness *Admission Date: 01/04/25 *Reason for visit:: Iron deficiency anemia/Hemoccult positive stool *History of present illness: Mrs. Costa is a 59-year-old female with iron deficiency anemia and hemolytic anemia. The hemolytic anemia was diagnosed in 2014 and she did not tolerate prednisone. She is also on Coumadin. She has undergone splenic embolectomy. The patient states that she has had more than 250 blood transfusions and has had multiple parenteral iron infusions. She also has renal insufficiency and anemia related to this. She is followed by oncology. The patient has had no signs of any acute or chronic GI blood loss. She does get some intermittent hemorrhoidal bleeding. The patient has not had an endoscopy or colonoscopy in 10 years according to the patient. She was referred to Dr. Rob Betancur in [place]. The patient had an upper GI with small bowel follow-through and subsequent PillCam. This is prior to her having any recent EGD or colonoscopy. The patient states that she was referred by Dr. Betancur to Dr. Roberto Carlos Lopez in [place] to have the panendoscopy but this could not be scheduled until January or February. The patient has not heard back from her PillCam results. She does have some dyspnea and fatigue. She did get Injectafer today and then was sent to the emergency department. She is Hemoccult positive. She reports no abdominal pain or weight loss. [facility] Disclaimer: The information contained in this section may have been updated after the patient was seen, as this information can be updated by other users. 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 specialist anticoagulation Afib HFrEF (heart failure with reduced ejection fraction) Partial tear of tendon CHF (NYHA class III, ACC/AHA stage C) Atrial fibrillation, chronic COPD exacerbation CHF exacerbation Anemia Systolic CHF Typical angina Dyspnea Rib fracture Blood transfusion reaction Autoimmune hemolytic anemia Arthritis Hernia Sinus problem Rheumatic heart disease Hypothyroidism Polyarthralgia Pulmonary edema HLD (hyperlipidemia) HTN (hypertension) CAD (coronary artery disease) DM type 2 (diabetes mellitus, type 2) DVT (deep venous thrombosis) Cardiomyopathy Arrhythmia Liver disease Thyroid disease Valvular heart disease Hypertension Hyperlipidemia GERD (gastroesophageal reflux disease) COPD (chronic obstructive pulmonary disease) Class 1 obesity CKD (chronic kidney disease) stage 3, GFR 30-59 ml/min Acute on chronic HFrEF (heart failure with reduced ejection fraction) Coronary artery disease Congestive heart failure, NYHA class III NYHA class 3 acute on chronic systolic heart failure Diabetes mellitus Hypertensive heart disease CHF (congestive heart failure) Diastolic heart failure Tricuspid valve regurgitation Surgical History Presence of biventricular AICD History of mitral valve replacement with mechanical valve Mitral valve replaced History of colon resection H/O tubal ligation History of angioplasty History of renal stent History of ureteroscopy History of tubal ligation History of hernia repair History of cardiac catheterization Family History Other Breast cancer COPD (chronic obstructive pulmonary disease) Colon cancer Family history of acute heart failure Family history of hyperlipidemia Family history of hypertension Family history of myocardial infarction Hypertension Stroke Social History Smoking Status: Former smoker tobacco type: cigarettes packs per day: 1 smoking status stop date: 01/09/2006 quit status: quit date established second hand exposure: Yes alcohol intake: never substance use type: denies use current occupational status: retired and disabled Travel in the last 8 weeks: None adopted: No caregiver/support person: No foster care: No household members: significant other housing: house lives independently: Yes marital status: life partner education level: college service: No chcf: No current occupational exposures/hazards: No sexually active: Yes how many partners: 1 are you practicing safe sex: Yes diet: diabetic well-balanced diet: about half the time caffeine: No eating out: rarely or never during the past year weight has: remained stable bhavya/religious: Holiness special bhavya needs: No agree to transfusion: Yes helmet use: No water heater temp set < 120 deg: Yes working smoke detector in home: Yes fire extinguisher in home: Yes carbon monox detector in home: Yes firearms in home: No do you feel safe at home: Yes victim of physical abuse: No victim of emotional abuse: No victim of sexual abuse: No would you like helpful sources: No Meds Home Medications and Allergies Home Medications ?Medication ?Instructions ?Recorded ?Confirmed ?Type aspirin 81 mg tablet,delayed 81 mg PO DAILY 12/01/17 01/04/25 History release (Adult Low Dose Aspirin) oxycodone-acetaminophen 10 mg-325 1 tab PO QID 05/23/18 01/04/25 History mg tablet (Percocet) alprazolam 0.5 mg tablet (Xanax) 0.5 mg PO TID 11/29/19 01/04/25 History levothyroxine 25 mcg tablet 25 mcg PO DAILY 06/05/21 01/04/25 History insulin glargine 100 60 units SQ DAILY 02/22/22 01/04/25 History unit-lixisenatide 33 mcg/mL subcutaneous pen febuxostat 40 mg tablet 40 mg PO DAILY 02/09/23 01/04/25 History potassium chloride 20 mEq 20 meq PO BID 04/15/23 01/04/25 History tablet,extended release(part/cryst) calcitriol 0.25 mcg capsule 0.25 mcg PO DAILY 10/30/23 01/04/25 History duloxetine 60 mg capsule,delayed 60 mg PO HS 03/06/24 01/04/25 History release dexlansoprazole 30 mg 30 mg PO DAILY 03/29/24 01/04/25 History capsule,biphase delayed release (Dexilant) metolazone 2.5 mg tablet 2.5 mg PO DAILYP PRN edema 06/15/24 01/04/25 History insulin glargine 100 unit/mL (3 10 unit SQ HS 06/27/24 01/04/25 History mL) subcutaneous pen (Lantus Solostar U-100 Insulin) metoprolol succinate 100 mg 100 mg PO BID 06/27/24 01/04/25 History tablet,extended release 24 hr empagliflozin 10 mg tablet 10 mg PO DAILY #30 tabs 07/17/24 01/04/25 Rx (Jardiance) colchicine 0.6 mg tablet 0.6 mg PO DAILY 10/05/24 01/02/25 History spironolactone 50 mg tablet 50 mg PO BID #180 tabs 10/05/24 01/04/25 Rx bumetanide 2 mg tablet 2 mg PO BID #60 tabs 12/26/24 01/04/25 Rx warfarin 4 mg tablet 2 mg PO SUTUWETHSA 01/02/25 01/04/25 History warfarin 4 mg tablet 4 mg PO MOFR 01/02/25 01/04/25 History amiodarone 200 mg tablet 200 mg PO DAILY 01/04/25 01/04/25 History New Prescriptions to Start Prescriptions: Allergies Allergy/AdvReac Type Severity Reaction Status Date / Time codeine (CODEINE) Allergy Unknown nausea, Verified 01/04/25 11:36 swelling Corticosteroids Allergy Unknown Unknown Verified 01/04/25 11:36 (Glucocorticoids) allergy (CORTICOSTEROIDS reaction (GLUCOCORTICOIDS)) NSAIDS (Non-Steroidal Allergy Unknown Other Verified 01/04/25 11:36 Anti-Inflamma rosuvastatin (From CRESTOR) Allergy Unknown Unknown Verified 01/04/25 11:36 allergy reaction theophylline (From DAVID-DUR) Allergy Unknown Unknown Verified 01/04/25 11:36 allergy reaction Iodinated Contrast Media AdvReac Severe shuts Verified 01/04/25 11:36 (IODINATED CONTRAST- ORAL kidneys AND IV DYE) down and bleeding buprenorphine (From BUPRENEX) AdvReac Intermediate Nausea Verified 01/04/25 11:36 levofloxacin (From Levaquin) AdvReac Other Verified 01/04/25 11:36 lisinopril AdvReac Cough Verified 01/04/25 11:36 prednisone AdvReac Unknown Verified 01/04/25 11:36 allergy reaction sacubitril (From Entresto) AdvReac Hypotension Verified 01/04/25 11:36 valsartan (From Entresto) AdvReac Hypotension Verified 01/04/25 11:36 Exam (Inpt) Vital signs and Labs for Last 24 Hours: Temp Pulse Resp BP Pulse Ox O2 Del Method 98.3 F 80 18 102/57 L 95 Room Air 01/04/25 14:18 01/04/25 14:18 01/04/25 14:18 01/04/25 14:18 01/04/25 14:18 01/04/25 14:18 Laboratory Results - last 24 hr 01/04/25 11:24: Urine Color Yellow, Urine Appearance Clear, Urine pH 6.5, Ur Specific [place] 1.010, Urine Protein Negative, Urine Glucose (UA) 1+, Urine Ketones Negative, Urine Blood Negative, Urine Nitrate Negative, Urine Bilirubin Negative, Urine Urobilinogen 0.2, Ur Leukocyte Esterase Negative, Urine RBC None, Urine WBC None, Ur Squamous Epith Cells 3-5, Urine Bacteria None 01/04/25 12:07: Stool Occult Blood Positive A 01/04/25 12:42: WBC 8.6, RBC 2.98 L, Hgb 7.6 L, Hct 25.3 L, MCV 84.9, MCH 25.5 L , MCHC 30.0 L, RDW 20.3 H, Plt Count 301, MPV 10.0, Neut % (Auto) 81.8 H, Lymph % (Auto) 4.8 L, [place] % (Auto) 9.8 H, Eos % (Auto) 2.2, Baso % (Auto) 0.7, Neut # (Auto) 7.0, Lymph # (Auto) 0.4 L, [place] # (Auto) 0.8, Eos # (Auto) 0.2, Baso # (Auto) 0.1, Retic Count (auto) 4.3 H, PT 32.3 H, INR 3.31 H, APTT 33.9 H, Sodium 134 L, Potassium 4.0, Chloride 87 L, Carbon Dioxide 33 H, Anion Gap 18.0 H, BUN 82 H, Creatinine 2.00 H, Estimated Creat Clear 34, Estimated GFR 25 L, Est GFR ( Amer) 31 L, Glucose 134 H D, Lactate 1.2, Calcium 9.8, Total Bilirubin 1.1, AST 27, ALT 24, Alkaline Phosphatase 133 H, Lactate Dehydrogenase 216 L, Total Protein 7.0, Albumin 4.5, Globulin 2.5, Albumin/Globulin Ratio 1.8 I & O for Labs for Last 24 Hours: Intake & Output 01/01/25 01/02/25 01/03/25 01/04/25 23:59 23:59 23:59 23:59 Weight 174 lb Comments:: Benign abdomen, normoactive bowel sounds, soft, nondistended, nontender, no masses Results Labs 01/04/25 12:42 01/04/25 12:42 Labs: Laboratory Results - last 24 hr 01/04/25 11:24: Urine Color Yellow, Urine Appearance Clear, Urine pH 6.5, Ur Specific [place] 1.010, Urine Protein Negative, Urine Glucose (UA) 1+, Urine Ketones Negative, Urine Blood Negative, Urine Nitrate Negative, Urine Bilirubin Negative, Urine Urobilinogen 0.2, Ur Leukocyte Esterase Negative, Urine RBC None, Urine WBC None, Ur Squamous Epith Cells 3-5, Urine Bacteria None 01/04/25 12:07: Stool Occult Blood Positive A 01/04/25 12:42: WBC 8.6, RBC 2.98 L, Hgb 7.6 L, Hct 25.3 L, MCV 84.9, MCH 25.5 L , MCHC 30.0 L, RDW 20.3 H, Plt Count 301, MPV 10.0, Neut % (Auto) 81.8 H, Lymph % (Auto) 4.8 L, [place] % (Auto) 9.8 H, Eos % (Auto) 2.2, Baso % (Auto) 0.7, Neut # (Auto) 7.0, Lymph # (Auto) 0.4 L, [place] # (Auto) 0.8, Eos # (Auto) 0.2, Baso # (Auto) 0.1, Retic Count (auto) 4.3 H, PT 32.3 H, INR 3.31 H, APTT 33.9 H, Sodium 134 L, Potassium 4.0, Chloride 87 L, Carbon Dioxide 33 H, Anion Gap 18.0 H, BUN 82 H, Creatinine 2.00 H, Estimated Creat Clear 34, Estimated GFR 25 L, Est GFR ( Amer) 31 L, Glucose 134 H D, Lactate 1.2, Calcium 9.8, Total Bilirubin 1.1, AST 27, ALT 24, Alkaline Phosphatase 133 H, Lactate Dehydrogenase 216 L, Total Protein 7.0, Albumin 4.5, Globulin 2.5, Albumin/Globulin Ratio 1.8 Assessment and Plan *Assessment and plan (1) Positive occult stool blood test: Status: Acute Category: Medical Code(s): R19.5 - Other fecal abnormalities (2) Symptomatic anemia: Status: Acute Category: Medical Code(s): D64.9 - Anemia, unspecified (3) Iron deficiency anemia: Status: Acute Category: Medical Code(s): D50.9 - Iron deficiency anemia, unspecified (4) Anemia in chronic kidney disease: Status: Acute Category: Medical Code(s): N18.9 - Chronic kidney disease, unspecified; D63.1 - Anemia in chronic kidney disease Plan 1. Multifactorial anemia (iron deficiency secondary to to chronic GI blood loss, hemolytic anemia and anemia related to chronic renal insufficiency). The patient is however Hemoccult positive with no visible evidence of any melena or hematochezia. She does have some hemorrhoidal blood. She has been recently sent to GI in [place]. She did have upper GI with small bowel follow-through and PillCam. Interestingly, she has not had EGD or colonoscopy in 10 years. GI in [place] was going to refer her to GI in [place] (Dr. Lopez) for panendoscopy that could not be scheduled until February. I would recommend that she have EGD and colonoscopy sooner than that. I would like to get the results of her PillCam and it has been a couple of weeks or more since this was done by Dr. Betancur in [place]. I do suspect that she has a component of chronic GI blood loss exacerbated by her anticoagulation/Coumadin. In persons with chronic cardiac disease and renal disease, my suspicion is that she has gastrointestinal angiodysplasias. This may be depicted on the PillCam. However treatment is often by APC ablation of all visible AVMs on EGD or colonoscopy. If these are in the small bowel, sometimes we have to treat medically. Angiodysplasias which are also called AVMs (arteriovenous malformations) can remain clinically silent or cause gastrointestinal bleeding. Patients who bleed typically present with occult not overt gastrointestinal blood loss. I recommend treating angiodysplasia found during upper endoscopy or colonoscopy in patients with occult bleeding, even if the lesions are not bleeding at the time of the endoscopy. If needed, patients should also be started on iron replacement therapy and this patient has had multiple parenteral iron infusions. Certainly when AVMs are detected on upper and lower endoscopy, video capsule enteroscopy or even interoperative enteroscopy which is deeper evaluation of the small intestine is sometimes warranted. In refractory and difficult cases, some medical therapies have been effectively used including estrogen (with or without progesterone), angiogenesis inhibitors (i.e. thalidomide) and octreotide have been used. I will plan outpatient EGD/colonoscopy within the next couple of weeks.
--- NOTE | 2025-01-04 14:30 | PC.NURSE ---
spoke with hospitalist regarding blood administration order. will not be infusing @ this time. will monitor pt status and labs.
--- NOTE | 2025-01-04 15:06 | ED_ITS ---
Discharge Plan Disposition Patient Disposition: Admitted Condition: Good Clinical Impressions Clinical Impression: Symptomatic anemia, GI bleed Discharge ED Provider: Maye Singh General Adult HPI General Chief complaint: Recheck/Abnormal Lab/Rx Stated complaint: abnormal labs Time Seen by Provider: 01/04/25 11:03 Mode of Arrival: Wheelchair Source of Information: Patient and Medical Record Limitations: No Limitations Description of Symptoms (Recalled from ER Triage Doc. by RN): Pt brought via wheelchair to ER d/t elevated BUN 82, Creat 2.00, Hgb 7.8, and Hct 26. Infusion states states Dr. Marcus wanted to admit her but Dr. Hopson perferred her to be evaluated in the ER before direct admitted. Port is accessed, ordered PRBC unit is ready in Lab. Pt recevied 2 units earlier this week d/t chronic abn labs. History of Present Illness HPI narrative: This patient is a 59-year-old female with a history of chronic iron deficiency anemia, CKD, CHF, atrial fibrillation on Coumadin, COPD, GERD, hypertension presenting as a referral from oncology with concern for increase in frequency of need for blood transfusion, worsening chronic anemia and elevation in BUN. They noted concern for possible bleeding. Patient denies any notable sources of bleeding. She notes that she is having some abdominal distention and constipation but denies any other concerns or complaints at this time. Related Data Home Medications ?Medication ?Instructions ?Recorded ?Confirmed aspirin 81 mg tablet,delayed 81 mg PO DAILY 12/01/17 01/04/25 release (Adult Low Dose Aspirin) oxycodone-acetaminophen 10 mg-325 1 tab PO QID 05/23/18 01/04/25 mg tablet (Percocet) alprazolam 0.5 mg tablet (Xanax) 0.5 mg PO TID 11/29/19 01/04/25 levothyroxine 25 mcg tablet 25 mcg PO DAILY 06/05/21 01/04/25 insulin glargine 100 60 units SQ DAILY 02/22/22 01/04/25 unit-lixisenatide 33 mcg/mL subcutaneous pen febuxostat 40 mg tablet 40 mg PO DAILY 02/09/23 01/04/25 potassium chloride 20 mEq 20 meq PO BID 04/15/23 01/04/25 tablet,extended release(part/cryst) calcitriol 0.25 mcg capsule 0.25 mcg PO DAILY 12/09/23 02/13/25 duloxetine 60 mg capsule,delayed 60 mg PO HS 03/06/24 01/04/25 release dexlansoprazole 30 mg 30 mg PO DAILY 03/29/24 01/04/25 capsule,biphase delayed release (Dexilant) metolazone 2.5 mg tablet 2.5 mg PO DAILYP PRN edema 06/15/24 01/04/25 insulin glargine 100 unit/mL (3 10 unit SQ HS 06/27/24 01/04/25 mL) subcutaneous pen (Lantus Solostar U-100 Insulin) metoprolol succinate 100 mg 100 mg PO BID 06/27/24 01/04/25 tablet,extended release 24 hr colchicine 0.6 mg tablet 0.6 mg PO DAILY 10/05/24 01/02/25 warfarin 4 mg tablet 2 mg PO SUTUWETHSA 01/02/25 01/04/25 warfarin 4 mg tablet 4 mg PO MOFR 01/02/25 01/04/25 amiodarone 200 mg tablet 200 mg PO DAILY 01/04/25 01/04/25 Previous Rx's ?Medication ?Instructions ?Recorded empagliflozin 10 mg tablet 10 mg PO DAILY #30 tabs 07/17/24 (Jardiance) spironolactone 50 mg tablet 50 mg PO BID #180 tabs 10/05/24 bumetanide 2 mg tablet 2 mg PO BID #60 tabs 12/26/24 Allergies Allergy/AdvReac Type Severity Reaction Status Date / Time codeine (CODEINE) Allergy Unknown nausea, Verified 01/04/25 11:36 swelling Corticosteroids Allergy Unknown Unknown Verified 01/04/25 11:36 (Glucocorticoids) allergy (CORTICOSTEROIDS reaction (GLUCOCORTICOIDS)) NSAIDS (Non-Steroidal Allergy Unknown Other Verified 01/04/25 11:36 Anti-Inflamma rosuvastatin (From CRESTOR) Allergy Unknown Unknown Verified 01/04/25 11:36 allergy reaction theophylline (From DAVID-DUR) Allergy Unknown Unknown Verified 01/04/25 11:36 allergy reaction Iodinated Contrast Media AdvReac Severe shuts Verified 01/04/25 11:36 (IODINATED CONTRAST- ORAL kidneys AND IV DYE) down and bleeding buprenorphine (From BUPRENEX) AdvReac Intermediate Nausea Verified 01/04/25 11:36 levofloxacin (From Levaquin) AdvReac Other Verified 01/04/25 11:36 lisinopril AdvReac Cough Verified 01/04/25 11:36 prednisone AdvReac Unknown Verified 01/04/25 11:36 allergy reaction sacubitril (From Entresto) AdvReac Hypotension Verified 01/04/25 11:36 valsartan (From Entresto) AdvReac Hypotension Verified 01/04/25 11:36 PFSH PFSH Disclaimer: The information contained in this section may have been updated after the patient was seen, as this information can be updated by other users. 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 with INR goal of 2.5-3.5 Third degree heart block Junctional escape rhythm Current use of jail anticoagulation Afib HFrEF (heart failure with reduced ejection fraction) Partial tear of tendon CHF (NYHA class III, ACC/AHA stage C) Atrial fibrillation, chronic COPD exacerbation CHF exacerbation Anemia Systolic CHF Typical angina Dyspnea Rib fracture Blood transfusion reaction Autoimmune hemolytic anemia Arthritis Hernia Sinus problem Rheumatic heart disease Hypothyroidism Polyarthralgia Pulmonary edema HLD (hyperlipidemia) HTN (hypertension) CAD (coronary artery disease) DM type 2 (diabetes mellitus, type 2) DVT (deep venous thrombosis) Cardiomyopathy Arrhythmia Liver disease Thyroid disease Valvular heart disease Hypertension Hyperlipidemia GERD (gastroesophageal reflux disease) COPD (chronic obstructive pulmonary disease) Class 1 obesity CKD (chronic kidney disease) stage 3, GFR 30-59 ml/min Acute on chronic HFrEF (heart failure with reduced ejection fraction) Coronary artery disease Congestive heart failure, NYHA class III NYHA class 3 acute on chronic systolic heart failure Diabetes mellitus Hypertensive heart disease CHF (congestive heart failure) Diastolic heart failure Tricuspid valve regurgitation Surgical History Presence of biventricular AICD History of mitral valve replacement with mechanical valve Mitral valve replaced History of colon resection H/O tubal ligation History of angioplasty History of renal stent History of ureteroscopy History of tubal ligation History of hernia repair History of cardiac catheterization Family History Other Breast cancer COPD (chronic obstructive pulmonary disease) Colon cancer Family history of acute heart failure Family history of hyperlipidemia Family history of hypertension Family history of myocardial infarction Hypertension Stroke Social History Smoking Status: Former smoker tobacco type: cigarettes packs per day: 1 smoking status stop date: 01/09/2006 quit status: quit date established second hand exposure: Yes alcohol intake: never substance use type: denies use current occupational status: retired and disabled Travel in the last 8 weeks: None adopted: No caregiver/support person: No foster care: No household members: significant other housing: house lives independently: Yes marital status: life partner education level: college service: No fpc: No current occupational exposures/hazards: No sexually active: Yes how many partners: 1 are you practicing safe sex: Yes diet: diabetic well-balanced diet: about half the time caffeine: No eating out: rarely or never during the past year weight has: remained stable bhavya/sabianist: Roman Catholic special bhavya needs: No agree to transfusion: Yes helmet use: No water heater temp set < 120 deg: Yes working smoke detector in home: Yes fire extinguisher in home: Yes carbon monox detector in home: Yes firearms in home: No do you feel safe at home: Yes victim of physical abuse: No victim of emotional abuse: No victim of sexual abuse: No would you like helpful sources: No Have you lived/traveled outside [place] in past 30 days?: No Contact w/someone who lives/traveled outside [place] past 30 days?: No Exposure to someone with infectious disease in past 14 days?: No Do you have a fever (greater than 100.4 F or 38 C)?: No Have you tested positive for COVID-19: No Exposed to someone with COVID-19 in past 14 days?: No Do you have a sore throat?: No Do you have a cough?: No Do you have any weakness?: No Do you have any diarrhea?: No Are you experiencing any unusual bleeding?: No Do you have any muscle aches/pain?: No Do you have any abdominal pain?: No Are you experiencing loss of taste or smell?: No Other Medical History Have you received the Flu Vaccine for this season: Yes Have you received the Pneumonia Vaccine: Yes ROS Obtained: Yes All systems reviewed & no additional complaints except as documented Physical Exam General General appearance: alert and in no apparent distress Head Head exam: atraumatic and normocephalic Eye Eye exam: Present normal appearance, PERRL and EOMI ENT ENT exam: Present normal exam, normal oropharynx, mucous membranes moist and normal external ear exam Neck Neck exam: Present normal inspection, full ROM and trachea midline; Absent tenderness Chest Chest inspection: Present normal inspection and symmetric chest wall rise; Absent tenderness Respiratory Respiratory exam: Present normal lung sounds bilaterally; Absent respiratory distress, wheezes, stridor or accessory muscle use Cardiovascular Cardiovascular exam: Present regular rate and normal rhythm Abdominal Exam Abdominal exam: Present soft; Absent distention, tenderness or guarding Extremities Exam Extremities exam: Present normal inspection, full ROM and normal capillary refill; Absent tenderness or edema Back Exam Back exam: Present normal inspection and full ROM; Absent tenderness Neurological Exam Neurological exam: Present alert, oriented X3, CN II-XII intact and normal gait; Absent motor sensory deficit Psychiatric Psychiatric exam: Present normal affect and normal mood Skin Skin exam: Present warm and dry Medical Decision Making Medical Records Medical records reviewed: Yes I reviewed the patient's medical records. Screening: Per USPSTF and CDC recommendations, given the prevalence of disease in our region, it is our hospital?s policy to screen for HIV and viral Hepatitis for all patients aged 18 and over and those with ongoing risk factors. Jeancarlos Inquiry Pt receiving controlled substance: No Vital Signs: 01/04/25 10:13 01/04/25 10:30 01/04/25 11:00 Temperature 98.6 F Temperature Source Oral Pulse Rate 80 81 Pulse Rate [Right] 80 Respiratory Rate 17 Blood Pressure 129/73 128/82 Blood Pressure [Right Arm] 129/73 Blood Pressure Mean Blood Pressure Mean [Right Arm] 91 Blood Pressure Source Blood Pressure Source [Right Arm] Automatic Cuff 02 Sat by Pulse Oximetry 98 96 95 Oxygen Delivery Method Room Air Room Air Room Air 01/04/25 11:30 01/04/25 12:00 01/04/25 12:07 Temperature Temperature Source Pulse Rate 80 80 Pulse Rate [Right] 79 Respiratory Rate Blood Pressure 128/79 118/74 Blood Pressure [Right Arm] Blood Pressure Mean 99 100 Blood Pressure Mean [Right Arm] Blood Pressure Source Blood Pressure Source [Right Arm] 02 Sat by Pulse Oximetry 97 95 96 Oxygen Delivery Method 01/04/25 13:40 Temperature 98.6 F Temperature Source Oral Pulse Rate 80 Pulse Rate [Right] Respiratory Rate 17 Blood Pressure 115/72 Blood Pressure [Right Arm] Blood Pressure Mean Blood Pressure Mean [Right Arm] Blood Pressure Source Automatic Cuff Blood Pressure Source [Right Arm] 02 Sat by Pulse Oximetry Oxygen Delivery Method Room Air Lab Data Lab results reviewed: Yes I reviewed the patient's lab results. Lab Results 01/04/25 11:24: Urine Color Yellow, Urine Appearance Clear, Urine pH 6.5, Ur Specific [place] 1.010, Urine Protein Negative, Urine Glucose (UA) 1+, Urine Ketones Negative, Urine Blood Negative, Urine Nitrate Negative, Urine Bilirubin Negative, Urine Urobilinogen 0.2, Ur Leukocyte Esterase Negative, Urine RBC None, Urine WBC None, Ur Squamous Epith Cells 3-5, Urine Bacteria None 01/04/25 12:07: Stool Occult Blood Positive A 01/04/25 12:42: WBC 8.6, RBC 2.98 L, Hgb 7.6 L, Hct 25.3 L, MCV 84.9, MCH 25.5 L , MCHC 30.0 L, RDW 20.3 H, Plt Count 301, MPV 10.0, Neut % (Auto) 81.8 H, Lymph % (Auto) 4.8 L, [place] % (Auto) 9.8 H, Eos % (Auto) 2.2, Baso % (Auto) 0.7, Neut # (Auto) 7.0, Lymph # (Auto) 0.4 L, [place] # (Auto) 0.8, Eos # (Auto) 0.2, Baso # (Auto) 0.1, Retic Count (auto) 4.3 H, PT 32.3 H, INR 3.31 H, APTT 33.9 H, Sodium 134 L, Potassium 4.0, Chloride 87 L, Carbon Dioxide 33 H, Anion Gap 18.0 H, BUN 82 H, Creatinine 2.00 H, Estimated Creat Clear 34, Estimated GFR 25 L, Est GFR ( Amer) 31 L, Glucose 134 H D, Lactate 1.2, Calcium 9.8, Total Bilirubin 1.1, AST 27, ALT 24, Alkaline Phosphatase 133 H, Lactate Dehydrogenase 216 L, Total Protein 7.0, Albumin 4.5, Globulin 2.5, Albumin/Globulin Ratio 1.8 01/04/25 12:42 01/04/25 12:42 Orders (Tests/Meds): ED MEDICATIONS Generic Name Dose Route Start Last Admin Trade Name Freq PRN Reason Stop Dose Admin Acetaminophen 650 mg 01/04/25 13:38 Acetaminophen 325mg Tab PO 02/03/25 13:37 Q4HP PRN Fever or Mild Pain (1-3) Sodium Chloride 1,000 mls @ 500 mls/hr 01/04/25 15:01 01/04/25 15:23 Sod Chlor 0.9% 1000ml Bag IV 01/04/25 17:00 500 mls/hr .Q2H ONE Administration Insulin Human Lispro 0 unit 01/04/25 16:30 01/04/25 15:54 Humalog 100 Units/Ml 10ml Vial (Ssi) SUBCUT 02/03/25 16:29 Not Given ACHS JOEY Protocol Ondansetron HCl 4 mg 01/04/25 13:38 Ondansetron 4mg/2ml Vial IV 02/03/25 13:37 Q6HP PRN Nausea Discontinued Medications Generic Name Dose Route Start Last Admin Trade Name Freq PRN Reason Stop Dose Admin Iron Sucrose 200 mg/ Sodium 110 mls @ 220 mls/hr 01/04/25 12:42 01/04/25 13:09 Chloride IV 01/04/25 13:11 220 mls/hr ONCE ONE Administration ORDERS Category Date Time Status Red Blood Cells Stat BBK 01/04/25 09:[address] abdomen pelvis wo con Stat Cat Scan 01/04/25 11:[address] chest wo con Stat Cat Scan 01/04/25 11:32 Completed Consult to Gastroenterology [CONS] Routine Cons 01/04/25 12:22 Active Complete Blood Count Auto Diff Stat Lab 01/04/25 12:42 Completed Comprehensive Metabolic Panel Stat Lab 01/04/25 12:42 Completed Haptoglobin Stat Lab 01/04/25 12:42 Received LDH [Lactate Dehydrogenase] Stat Lab 01/04/25 12:42 Completed Lactic Acid Stat Lab 01/04/25 12:42 Completed Occult Blood,Stool Stat Lab 01/04/25 12:07 Completed PT INR [Prothrombin Time INR] Stat Lab 01/04/25 12:42 Completed PTT [Activated Partial Thrombo Time] Stat Lab 01/04/25 12:42 Completed Peripheral Smear Review Stat Lab 01/04/25 12:42 Received Reticulocyte % (Auto) Stat Lab 01/04/25 12:42 Completed Urinalysis and Microscopic Stat Lab 01/04/25 11:24 Completed Medical Decision Narrative: In summary, this patient is a 59-year-old female presenting to the Emergency Department for evaluation of acute on chronic anemia and elevated BUN. Differential diagnoses considered include but are not limited to GI bleed, symptomatic anemia, hemolytic anemia, chronic iron deficiency anemia, anemia of chronic disease. Ruling out the most morbid conditions drove assessment. It should be noted patient's history includes anemia, CKD, A-fib on Coumadin, hypertension, hyperlipidemia, diabetes which may or may not be at goal therapy. This complicates all aspects of care by increasing patient's risk for morbidity. I reviewed patient's past medical records and noted multiple recent transfusions, which is an increase frequently from patient's prior. I also noted evaluation at the end of November with concern for traumatic injuries, at which point patient was cleared at and discharged home. On exam, the patient is hemodynamically stable with mild abdominal pain/tenderness but no other acute concerns. Workup included CBC, CMP, haptoglobin, LDH, uric acid, coags, CT chest, abdomen, pelvis without contrast. This is because patient has contrast allergy. I did this to evaluate for possible internal sources of bleeding with the trauma at the end of November, that was unlikely. I independently interpreted CT scans prior to the radiologist read and noted cardiomegaly with concerns for pulmonary edema, fecal impaction and constipation. Please see their read for final interpretation. Labs were obtained that demonstrated chronic anemia, positive stool occult, elevated BUN and creatinine consistent with CKD. I had interactive discussions with both GI and the hospitalist who are in agreement to admit the patient for further evaluation and management with concerns for worsening of chronic anemia with symptomatic anemia. She has lightheadedness, generalized weakness, fatigue. I admitted the patient in stable condition. Critical Care Critical Care Time Critical Care Time: No
[2025-01-04] MEDS: 0.9 % SODIUM CHLORIDE 1000ML 1,000 ML 500 ML IV (15:23)
[2025-01-04 15:59] LABS: POC Glucose,Bedside 103 (70-110)
--- NOTE | 2025-01-04 17:50 | ECG_ITS ---
APPROVED REPORT Exam: Resting ECG HR:80 bpm ECG Measurements Heart Rate 80 AXES QRSd 197 QRS 168 QT 514 T 6 QTc 549 Conclusion ELECTRONIC VENTRICULAR PACEMAKER ABNORMAL RHYTHM ECG UNCONFIRMED REPORT Electronically signed by : Reji Castro MD 01/05/2025 15:50:03
[2025-01-04 17:55] LABS: Chloride 89 mmol/L (98-107)
[2025-01-04 17:56] LABS: Potassium 3.7 mmoL/L (3.5-5.1); Sodium 132 mmol/L (136-145)
[2025-01-04 17:59] LABS: Anion Gap 12.7 mEq/L (5-15); Blood Urea Nitrogen 77 mg/dl (7-17); Calcium 9.3 mg/dl (8.4-10.2); Carbon Dioxide 34 mmol/L (22.0-30.0); Creatinine Clearance Estimated 37 mL/min (50-200); Estimated Glomerular Filt Rate 25 ml/min (>60); GFR (African American) 31 ML/MIN (>60); Glucose 111 mg/dl (74-100)
[2025-01-04 18:48] LABS: Troponin I < 0.01 ng/ml (0.00-0.034)
[2025-01-04 21:39] LABS: POC Glucose,Bedside 201 (70-110)
--- NOTE | 2025-01-04 22:03 | EXP.HP ---
History of Present Illness *Admission Date: 01/04/25 *History of present illness: Mrs. Costa is a 59-year-old female with iron deficiency anemia and hemolytic anemia. The hemolytic anemia was diagnosed in 2014 and she did not tolerate prednisone. She is also on Coumadin. She has undergone splenic embolectomy. The patient states that she has had more than 250 blood transfusions and has had multiple parenteral iron infusions. She also has renal insufficiency and anemia related to this. She is followed by oncology. The patient has had no signs of any acute or chronic GI blood loss. She does get some intermittent hemorrhoidal bleeding. The patient has not had an endoscopy or colonoscopy in 10 years according to the patient. She was referred to Dr. Rob Betancur in [place]. The patient had an upper GI with small bowel follow-through and subsequent PillCam. This is prior to her having any recent EGD or colonoscopy. The patient states that she was referred by Dr. Betancur to Dr. Roberto Carlos Lopez in [place] to have the panendoscopy but this could not be scheduled until January or February. The patient has not heard back from her PillCam results. She does have some dyspnea and fatigue. She did get Injectafer today and then was sent to the emergency department. She is Hemoccult positive. She reports no abdominal pain or weight loss. [facility] Disclaimer: The information contained in this section may have been updated after the patient was seen, as this information can be updated by other users. 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 churn current use of anticoagulants with INR goal of 2.5-3.5 Third degree heart block Junctional escape rhythm Current use of chcf anticoagulation Afib HFrEF (heart failure with reduced ejection fraction) Partial tear of tendon CHF (NYHA class III, ACC/AHA stage C) Atrial fibrillation, chronic COPD exacerbation CHF exacerbation Anemia Systolic CHF Typical angina Dyspnea Rib fracture Blood transfusion reaction Autoimmune hemolytic anemia Arthritis Hernia Sinus problem Rheumatic heart disease Hypothyroidism Polyarthralgia Pulmonary edema HLD (hyperlipidemia) HTN (hypertension) CAD (coronary artery disease) DM type 2 (diabetes mellitus, type 2) DVT (deep venous thrombosis) Cardiomyopathy Arrhythmia Liver disease Thyroid disease Valvular heart disease Hypertension Hyperlipidemia GERD (gastroesophageal reflux disease) COPD (chronic obstructive pulmonary disease) Class 1 obesity CKD (chronic kidney disease) stage 3, GFR 30-59 ml/min Acute on chronic HFrEF (heart failure with reduced ejection fraction) Coronary artery disease Congestive heart failure, NYHA class III NYHA class 3 acute on chronic systolic heart failure Diabetes mellitus Hypertensive heart disease CHF (congestive heart failure) Diastolic heart failure Tricuspid valve regurgitation Surgical History Presence of biventricular AICD History of mitral valve replacement with mechanical valve Mitral valve replaced History of colon resection H/O tubal ligation History of angioplasty History of renal stent History of ureteroscopy History of tubal ligation History of hernia repair History of cardiac catheterization Family History Other Breast cancer COPD (chronic obstructive pulmonary disease) Colon cancer Family history of acute heart failure Family history of hyperlipidemia Family history of hypertension Family history of myocardial infarction Hypertension Stroke Social History Smoking Status: Former smoker tobacco type: cigarettes packs per day: 1 smoking status stop date: 01/09/2006 quit status: quit date established second hand exposure: Yes alcohol intake: never substance use type: denies use current occupational status: retired and disabled Travel in the last 8 weeks: None adopted: No caregiver/support person: No foster care: No household members: significant other housing: house lives independently: Yes marital status: life partner education level: college service: No shelter: No current occupational exposures/hazards: No sexually active: Yes how many partners: 1 are you practicing safe sex: Yes diet: diabetic well-balanced diet: about half the time caffeine: No eating out: rarely or never during the past year weight has: remained stable bhavya/gnosticism: Congregational special bhavya needs: No agree to transfusion: Yes helmet use: No water heater temp set < 120 deg: Yes working smoke detector in home: Yes fire extinguisher in home: Yes carbon monox detector in home: Yes firearms in home: No do you feel safe at home: Yes victim of physical abuse: No victim of emotional abuse: No victim of sexual abuse: No would you like helpful sources: No Other Medical History Have you received the Flu Vaccine for this season: Yes Have you received the Pneumonia Vaccine: Yes Meds Home Medications and Allergies Home Medications ?Medication ?Instructions ?Recorded ?Confirmed ?Type aspirin 81 mg tablet,delayed 81 mg PO DAILY 12/01/17 01/17/25 History release (Adult Low Dose Aspirin) oxycodone-acetaminophen 10 mg-325 1 tab PO QID 05/23/18 01/17/25 History mg tablet (Percocet) alprazolam 0.5 mg tablet (Xanax) 0.5 mg PO TID 11/29/19 01/17/25 History levothyroxine 25 mcg tablet 25 mcg PO DAILY 06/05/21 01/17/25 History insulin glargine 100 60 units SQ DAILY 02/22/22 01/17/25 History unit-lixisenatide 33 mcg/mL subcutaneous pen febuxostat 40 mg tablet 40 mg PO DAILY 02/09/23 01/17/25 History potassium chloride 20 mEq 20 meq PO BID 04/15/23 01/17/25 History tablet,extended release(part/cryst) calcitriol 0.25 mcg capsule 0.25 mcg PO DAILY 10/30/23 01/17/25 History duloxetine 60 mg capsule,delayed 60 mg PO HS 03/06/24 01/17/25 History release dexlansoprazole 30 mg 30 mg PO DAILY 03/29/24 01/17/25 History capsule,biphase delayed release (Dexilant) metolazone 2.5 mg tablet 2.5 mg PO DAILYP PRN edema 06/15/24 01/17/25 History metoprolol succinate 100 mg 100 mg PO BID 06/27/24 01/17/25 History tablet,extended release 24 hr empagliflozin 10 mg tablet 10 mg PO DAILY #30 tabs 07/17/24 01/17/25 Rx (Jardiance) amiodarone 200 mg tablet 200 mg PO DAILY 01/04/25 01/17/25 History bumetanide 2 mg tablet 2 mg PO DAILY #60 tabs 01/05/25 01/17/25 Rx ferrous sulfate 325 mg (65 mg 325 mg PO TID #90 tabs 01/05/25 01/17/25 Rx iron) tablet polyethylene glycol 3350 17 17 g PO DAILY #510 grams 01/05/25 01/17/25 Rx gram/dose oral powder (Miralax) sodium,potassium,mag sulfates 17.5 See Rx Instructions PO .COMPLEX 01/05/25 01/17/25 Rx gram-3.13 gram-1.6 gram oral soln #354 mL (Suprep Bowel Prep Kit) spironolactone 50 mg tablet 50 mg PO DAILY 30 days #180 tabs 01/05/25 01/17/25 Rx warfarin 4 mg tablet 2 mg (1/2 x 4 mg) PO DAILY 30 days 01/05/25 01/17/25 Rx #0 tabs enoxaparin 100 mg/mL subcutaneous 86 mg (0.86 mL) SQ Q12H 01/17/25 01/17/25 Rx syringe (Lovenox) perioperative anticoagulation 10 days #17.2 mL insulin glargine 100 unit/mL (3 14 unit SQ HS 01/17/25 01/17/25 History mL) subcutaneous pen (Lantus Solostar U-100 Insulin) New Prescriptions to Start Prescriptions: ferrous sulfate Sandeep Hopson polyethylene glycol 3350 [Miralax] Sandeep Hopson Allergies Allergy/AdvReac Type Severity Reaction Status Date / Time codeine (CODEINE) Allergy Unknown nausea, Verified 01/17/25 13:50 swelling Corticosteroids Allergy Unknown Unknown Verified 01/17/25 13:50 (Glucocorticoids) allergy (CORTICOSTEROIDS reaction (GLUCOCORTICOIDS)) NSAIDS (Non-Steroidal Allergy Unknown Other Verified 01/17/25 13:50 Anti-Inflamma rosuvastatin (From CRESTOR) Allergy Unknown Unknown Verified 01/17/25 13:50 allergy reaction theophylline (From DAVID-DUR) Allergy Unknown Unknown Verified 01/17/25 13:50 allergy reaction Iodinated Contrast Media AdvReac Severe shuts Verified 01/17/25 13:50 (IODINATED CONTRAST- ORAL kidneys AND IV DYE) down and bleeding buprenorphine (From BUPRENEX) AdvReac Intermediate Nausea Verified 01/17/25 13:50 levofloxacin (From Levaquin) AdvReac Other Verified 01/17/25 13:50 lisinopril AdvReac Cough Verified 01/17/25 13:50 prednisone AdvReac Unknown Verified 01/17/25 13:50 allergy reaction sacubitril (From Entresto) AdvReac Hypotension Verified 01/17/25 13:50 valsartan (From Entresto) AdvReac Hypotension Verified 01/17/25 13:50 Exam Data for Last 24 hours Vital signs and Labs for Last 24 Hours: Temp Pulse Resp BP Pulse Ox O2 Del Method 97.8 F 80 16 111/68 95 Room Air 01/04/25 20:00 01/04/25 20:00 01/04/25 20:00 01/04/25 20:00 01/04/25 20:00 01/04/25 20:00 Laboratory Results - last 24 hr 01/04/25 11:24: Urine Color Yellow, Urine Appearance Clear, Urine pH 6.5, Ur Specific [place] 1.010, Urine Protein Negative, Urine Glucose (UA) 1+, Urine Ketones Negative, Urine Blood Negative, Urine Nitrate Negative, Urine Bilirubin Negative, Urine Urobilinogen 0.2, Ur Leukocyte Esterase Negative, Urine RBC None, Urine WBC None, Ur Squamous Epith Cells 3-5, Urine Bacteria None 01/04/25 12:07: Stool Occult Blood Positive A 01/04/25 12:42: WBC 8.6, RBC 2.98 L, Hgb 7.6 L, Hct 25.3 L, MCV 84.9, MCH 25.5 L, MCHC 30.0 L, RDW 20.3 H, Plt Count 301, MPV 10.0, Neut % (Auto) 81.8 H, Lymph % (Auto) 4.8 L, Amador % (Auto) 9.8 H, Eos % (Auto) 2.2, Baso % (Auto) 0.7, Neut # (Auto) 7.0, Lymph # (Auto) 0.4 L, Am[place] # (Auto) 0.8, Eos # (Auto) 0.2, Baso # (Auto) 0.1, Retic Count (auto) 4.3 H, PT 32.3 H, INR 3.31 H, APTT 33.9 H, Sodium 134 L, Potassium 4.0, Chloride 87 L, Carbon Dioxide 33 H, Anion Gap 18.0 H, BUN 82 H, Creatinine 2.00 H, Estimated Creat Clear 34, Estimated GFR 25 L, Est GFR ( Amer) 31 L, Glucose 134 H D, Lactate 1.2, Calcium 9.8, Total Bilirubin 1.1, AST 27, ALT 24, Alkaline Phosphatase 133 H, Lactate Dehydrogenase 216 L, Total Protein 7.0, Albumin 4.5, Globulin 2.5, Albumin/Globulin Ratio 1.8 01/04/25 15:52: POC Glucose 103 01/04/25 17:37: Sodium 132 L, Potassium 3.7, Chloride 89 L, Carbon Dioxide 34 H, Anion Gap 12.7, BUN 77 H, Creatinine 2.00 H, Estimated Creat Clear 37, Estimated GFR 25 L, Est GFR ( Amer) 31 L, Glucose 111 H, Calcium 9.3, Troponin I < 0.01 01/04/25 21:26: POC Glucose 201 H I & O for Last 24 hours: Intake & Output 01/01/25 01/02/25 01/03/25 01/04/25 23:59 23:59 23:59 23:59 Intake Total 1360 / 1360 Balance 1360 / 1360 Weight 78.925 kg Constitutional Constitutional: no acute distress *Routine HEENT Exam Head: Present normocephalic Eye: Present EOMI and PERRL ENT: Present mucous membranes moist *Routine Neck Exam Neck: Present supple; Absent lymphadenopathy *Routine Respiratory Exam Respiratory: Present CTA bilaterally *Routine Cardiovascular Exam Cardiovascular: Present RRR *Routine Abdominal Exam Abdominal: Present soft and normoactive bowel sounds; Absent tenderness *Routine Rectal Exam Rectal:: deferred *Routine Genitalia Exam Genitalia:: deferred *Routine Extremities Exam Extremities: Absent cyanosis, clubbing or edema *Routine Skin Exam Skin: Present warm; Absent rash *Routine Neurological Exam Neurological: Present alert and oriented X3 Assessment and Plan *Assessment and plan (1) GI bleed: Status: Acute Category: Medical Code(s): K92.2 - Gastrointestinal hemorrhage, unspecified Plan Irina Costa is a 59-year-old female with a history of autoimmune hemolytic anemia who was admitted for suspected GI bleed. #Chronic autoimmune hemolytic anemia #Positive FOBT ? Initial hemoglobin 7.8, BUN 82, positive FOBT. ? Given these findings, GI was consulted. However, patient had a PillCam endoscopy about 2 weeks ago at [facility]. Will obtain records. ? Vital signs stable. No evidence of melena. ? No plan for EGD/colonoscopy tomorrow if stable hemoglobin stable. GI plans to do this on an outpatient basis at this time. ? Continuous cardiac telemetry for now. ? If hemoglobin stable tomorrow, anticipate discharge with close follow-up with GI. #HFrEF-EF ? Chronic, stable. EF 33% on Cardiac MRI ? Bi-V pacemaker placed 07/11/2024- last d/l 12/2024 ? CardioMEMS in place but we have not been receiving information since 2020. ? Hold Bumex for now given suspected GI bleed. #Type 2 diabetes ? Hemoglobin A1c 7.9% ? LDSSI, ACHS glucose checks. Mechanical mitral valve-Continue Coumadin therapy Chronic atrial fibrillation-rate controlled. Continue home amiodarone. Hold home warfarin. Full code DVT prophylaxis: SCDs
[2025-01-05] VITALS (18 sets, daily range): BP systolic 96–123; BP diastolic 53–82; PULSE 79–90; RESP 16–20; TEMP 36.4–36.9; O2SAT 90–98; BMI 29.7
[2025-01-05 06:48] LABS: POC Glucose,Bedside 168 (70-110)
[2025-01-05 07:11] LABS: Chloride 93 mmol/L (98-107); Sodium 135 mmol/L (136-145)
[2025-01-05 07:14] LABS: Alanine Aminotransferase 21 U/L (12-78); Albumin/Globulin Ratio 1.7 (1.1-1.8); Alkaline Phosphatase 120 U/L (38-126); Aspartate Amino Transferase 34 U/L (14-36); Bilirubin,Total 0.8 mg/dl (0.2-1.3); Blood Urea Nitrogen 77 mg/dl (7-17); Calcium 9.3 mg/dl (8.4-10.2); Carbon Dioxide 31 mmol/L (22.0-30.0); Creatinine Clearance Estimated 33 mL/min (50-200); Estimated Glomerular Filt Rate 23 ml/min (>60); GFR (African American) 27 ML/MIN (>60); Globulin 2.4 g/dL (1.3-3.2); Glucose 145 mg/dl (74-100); Magnesium 2.3 mg/dl (1.6-2.3); Total Protein,Serum 6.4 g/dl (6.3-8.2)
[2025-01-05 07:35] LABS: Basophils # 0.1 K/mm3 (0-0.2); Basophils % 0.8 % (0.1-2.0); Eosinophils # 0.2 K/mm3 (0.0-0.4); Hematocrit 24.5 % (37.0-47.0); Hemoglobin 7.2 g/dL (12.2-16.2); Lymphocytes # 0.3 K/mm3 (0.7-4.5); Lymphocytes % 4.7 % (10-50); Mean Corpuscular HGB Conc 29.4 g/dL (31.8-35.4); Mean Corpuscular Hemoglobin 25.2 pg (27.0-31.2); Mean Corpuscular Volume 85.7 fl (81-99); Mean Platelet Volume 9.8 fl (7.4-10.4); Monocytes # 0.7 K/mm3 (0.1-1.0); Monocytes % 11.2 % (1.7-9.3); Neutrophils # 5.3 K/mm3 (1.8-7.8); Neutrophils % 79.7 % (37.0-80.0); Platelet Count 272 K/mm3 (142-424); Red Blood Count 2.86 M/mm3 (4.20-5.40); Red Cell Distribution Width 20.3 % (11.5-17.5); White Blood Count 6.6 K/mm3 (4.8-10.8)
--- NOTE | 2025-01-05 08:51 | CA_ITS ---
APPROVED REPORT EXAM: Comprehensive 2D, Doppler, and color-flow Echocardiogram Claims Associate: VASILE Santos, RVS Ht: 5 ft 3 in Wt: 175lbs BSA: 1.83 BP: 111/68 mmHg Indications: Anemia Hgb=7.6, GI bleed, CM,CAD, Afib, MVR mechanical 2D Dimensions LVDd 5.87 cm F: 3.9 - 5.3 LVEF (Visual) 46.30 % LVDs 4.49 cm F: 2.2 - 3.5 EF AP4 37.70 % Left Atrium 6.31 cm F: 2.7 - 3.8 GL Strain -5.9 % M-Mode Dimensions LA Diam 8.05 cm (1.9-4.0) LVDd 6.26 cm (3.5-5.7) LVDs 4.66 cm (3.5-5.7) EF (Teich) 49.40% FS 25.60% EDV (Teich) 198.30 mL TAPSE 2.22 (<1.7) ESV (Teich) 100.30 mL Tricuspid Valve TR P. Velocity 282.00 cm/s RAP Estimate 10.00 mmHg RVSP 41.80 mmHg Other Information Study Quality: Fair Conclusion This is a limited TTE to evaluate for LV systolic function. Limited windows were obtained. The left ventricle is mildly dilated. There is increased LV wall thickness. Diastolic function is indeterminate. There is moderate global hypokinesis present. The septum is asynchronous. The distal inferoseptal and apical LV avelar are nearly akinetic. LVEF is 30-35%. The patient is s/p mechanical MVR. Grossly, the leaflets appear to open well. No obvious mobile echodensities are noted. Transmitral gradients and velocities are not evaluated in the study. Electronically signed by : Sade Caldwell MD 01/05/2025 20:14:15
[2025-01-05 09:29] LABS: Prothrombin Time 35.7 seconds (9.2-12.1)
[2025-01-05 09:55] LABS: Free T4 (Free Thyroxine) 1.76 ng/dl (0.78-2.19)
[2025-01-05] MEDS: OXYCODONE 10MG W/APAP 325MG TABLET 1 EACH PO ×2 (09:55→12:36)
[2025-01-05] MEDS: BUMETANIDE 1 MG TABLET 2 MG PO (09:55)
[2025-01-05] MEDS: AMIODARONE 200MG TABLET 200 MG PO (09:55)
[2025-01-05] MEDS: EMPAGLIFLOZIN 10MG TABLET 10 MG PO (09:55)
[2025-01-05] MEDS: ASPIRIN EC 81MG TABLET 81 MG PO (09:55)
[2025-01-05] MEDS: LEVOTHYROXINE 25MCG (0.025MG) TAB 25 MCG PO (09:55)
[2025-01-05] MEDS: METOPROLOL SUCCINATE XL 100MG TABLET 100 MG PO (09:55)
[2025-01-05] MEDS: diphenhydrAMINE 50MG CAPSULE 50 MG PO (10:22)
[2025-01-05 10:45] LABS: Vitamin B12 405 pg/mL (239-931)
[2025-01-05] MEDS: humaLOG 100 UNITS/ML 10ML VIAL (SSI) SUBCUT (11:10)
[2025-01-05] MEDS: WARFARIN 2MG TABLET 2 MG PO (11:11)
[2025-01-05 11:12] LABS: POC Glucose,Bedside 306 (70-110)
[2025-01-05 13:21] LABS: Haptoglobin 91 mg/dL (37-355)
--- NOTE | 2025-01-05 13:30 | P.DS_ITS ---
General Admission date:: 01/04/25 HPI HPI HPI: Mrs. Costa is a 59-year-old female with iron deficiency anemia and hemolytic anemia. The hemolytic anemia was diagnosed in 2014 and she did not tolerate prednisone. She is also on Coumadin. She has undergone splenic embolectomy. The patient states that she has had more than 250 blood transfusions and has had multiple parenteral iron infusions. She also has renal insufficiency and anemia related to this. She is followed by oncology. The patient has had no signs of any acute or chronic GI blood loss. She does get some intermittent hemorrhoidal bleeding. The patient has not had an endoscopy or colonoscopy in 10 years according to the patient. She was referred to Dr. Rob Betancur in [place]. The patient had an upper GI with small bowel follow-through and subsequent Pill Cam. This is prior to her having any recent EGD or colonoscopy. The patient states that she was referred by Dr. Betancur to Dr. Roberto Carlos Lopez in [place] to have the panendoscopy but this could not be scheduled until January or February. The patient has not heard back from her PillCam results. She does have some dyspnea and fatigue. She did get Injectafer today and then was sent to the emergency department. She is Hemoccult positive. She reports no abdominal pain or weight loss. Hospital Course Hospital Course Hospital Course: Irina Costa is a 59-year-old female with a history of autoimmune hemolytic anemia who was admitted for suspected GI bleed. #Chronic autoimmune hemolytic anemia #Positive FOBT ? Initial hemoglobin 7.8, BUN 82, positive FOBT. ? Given these findings, GI was consulted. However, patient had a PillCam endoscopy about 2 weeks ago at [facility]. Obtaining records. ? Hemoglobin remained stable at 7.9%. BUN improved to 77 with IV fluids. ? Patient may have a chronic GI bleed, however hemoglobin and vital signs stable. Given PillCam endoscopy was done just a few weeks ago, GI will follow- up on these records and plan for outpatient EGD/colonoscopy. Anemia may also be from CKD, iron deficiency anemia. ? Continue home PPI, started on iron supplementation, MiraLAX. #HFrEF-EF ? Chronic, stable. EF 33% on Cardiac MRI ? Bi-V pacemaker placed 07/11/2024- last d/l 12/2024 ? CardioMEMS in place but we have not been receiving information since 2020. ? Continue home Bumex. #Type 2 diabetes ? Hemoglobin A1c 7.9% ? Continue home regimen. Mechanical mitral valve-Continue Coumadin therapy Chronic atrial fibrillation-rate controlled. Continue home amiodarone, warfarin. Total time spent on discharge: 32 minutes on chart review, counseling, documentation, and direct care with patient. Exam Data for Last 24 hours Vital signs and Labs for Last 24 Hours: Temp Pulse Resp BP Pulse Ox O2 Del Method 98.1 F 80 18 111/76 96 Room Air 01/05/25 12:40 01/05/25 12:40 01/05/25 12:40 01/05/25 12:40 01/05/25 12:40 01/05/25 13:00 Laboratory Results - last 24 hr 01/04/25 12:42: Haptoglobin 91, Lactate Dehydrogenase 216 L 01/04/25 15:52: POC Glucose 103 01/04/25 17:37: Sodium 132 L, Potassium 3.7, Chloride 89 L, Carbon Dioxide 34 H, Anion Gap 12.7, BUN 77 H, Creatinine 2.00 H, Estimated Creat Clear 37, Estimated GFR 25 L, Est GFR ( Amer) 31 L, Glucose 111 H, Calcium 9.3, Troponin I < 0.01 01/04/25 21:26: POC Glucose 201 H 01/05/25 05:23: WBC 6.6, RBC 2.86 L, Hgb 7.2 L, Hct 24.5 L, MCV 85.7, MCH 25.2 L , MCHC 29.4 L, RDW 20.3 H, Plt Count 272, MPV 9.8, Neut % (Auto) 79.7, Lymph % (Auto) 4.7 L, [place] % (Auto) 11.2 H, Eos % (Auto) 3.0, Baso % (Auto) 0.8, Neut # (Auto) 5.3, Lymph # (Auto) 0.3 L, [place] # (Auto) 0.7, Eos # (Auto) 0.2, Baso # (Auto) 0.1, Sodium 135 L, Potassium 4.0, Chloride 93 L, Carbon Dioxide 31 H, Anion Gap 15.0, BUN 77 H, Creatinine 2.20 H, Estimated Creat Clear 33, Estimated GFR 23 L, Est GFR ( Amer) 27 L, Glucose 145 H D, Calcium 9.3, Magnesium 2.3, Total Bilirubin 0.8, AST 34 D, ALT 21, Alkaline Phosphatase 120, Total Protein 6.4, Albumin 4.0 D, Globulin 2.4, Albumin/Globulin Ratio 1.7, Vitamin B12 405, Folate 10.70, TSH 4.20, Free T4 1.76 01/05/25 05:39: POC Glucose 168 H 01/05/25 08:54: PT 35.7 H, INR 3.70 H 01/05/25 11:03: POC Glucose 306 H* I & O for Last 24 hours: Intake & Output 01/02/25 01/03/25 01/04/25 01/05/25 23:59 23:59 23:59 23:59 Intake Total 1360 / 1360 750 / 750 Output Total 0 / 0 Balance 1360 / 1360 750 / 750 Weight 78.925 kg 78.86 kg Constitutional Constitutional: no acute distress *Routine HEENT Exam Head: Present normocephalic Eye: Present EOMI and PERRL ENT: Present mucous membranes moist *Routine Neck Exam Neck: Present supple; Absent lymphadenopathy *Routine Respiratory Exam Respiratory: Present CTA bilaterally *Routine Cardiovascular Exam Cardiovascular: Present RRR *Routine Abdominal Exam Abdominal: Present soft and normoactive bowel sounds; Absent tenderness *Routine Extremities Exam Extremities: Absent cyanosis, clubbing or edema *Routine Skin Exam Skin: Present warm; Absent rash *Routine Neurological Exam Neurological: Present alert and oriented X3 Results Data Completed and Pending Labs on day of discharge: Labs from last 24 hours 01/05/25 01/05/25 01/05/25 11:03 08:54 05:39 WBC RBC Hgb Hct MCV MCH MCHC RDW Plt Count MPV Neut % (Auto) Lymph % (Auto) [place] % (Auto) Eos % (Auto) Baso % (Auto) Neut # (Auto) Lymph # (Auto) [place] # (Auto) Eos # (Auto) Baso # (Auto) Haptoglobin PT 35.7 H INR 3.70 H Sodium Potassium Chloride Carbon Dioxide Anion Gap BUN Creatinine Estimated Creat Clear Estimated GFR Est GFR ( Amer) Glucose POC Glucose 306 H* 168 H Calcium Magnesium Total Bilirubin AST ALT Alkaline Phosphatase Lactate Dehydrogenase Troponin I Total Protein Albumin Globulin Albumin/Globulin Ratio Vitamin B12 Folate TSH Free T4 0201/04/25 01/04/25 05:23 21:26 17:37 WBC 6.6 RBC 2.86 L Hgb 7.2 L Hct 24.5 L MCV 85.7 MCH 25.2 L MCHC 29.4 L RDW 20.3 H Plt Count 272 MPV 9.8 Neut % (Auto) 79.7 Lymph % (Auto) 4.7 L [place] % (Auto) 11.2 H Eos % (Auto) 3.0 Baso % (Auto) 0.8 Neut # (Auto) 5.3 Lymph # (Auto) 0.3 L [place] # (Auto) 0.7 Eos # (Auto) 0.2 Baso # (Auto) 0.1 Haptoglobin PT INR Sodium 135 L 132 L Potassium 4.0 3.7 Chloride 93 L 89 L Carbon Dioxide 31 H 34 H Anion Gap 15.0 12.7 BUN 77 H 77 H Creatinine 2.20 H 2.00 H Estimated Creat Clear 33 37 Estimated GFR 23 L 25 L Est GFR ( Amer) 27 L 31 L Glucose 145 H D 111 H POC Glucose 201 H Calcium 9.3 9.3 Magnesium 2.3 Total Bilirubin 0.8 AST 34 D ALT 21 Alkaline Phosphatase 120 Lactate Dehydrogenase Troponin I < 0.01 Total Protein 6.4 Albumin 4.0 D Globulin 2.4 Albumin/Globulin Ratio 1.7 Vitamin B12 405 Folate 10.70 TSH 4.20 Free T4 1.76 01/04/25 01/04/25 15:52 12:42 WBC RBC Hgb Hct MCV MCH MCHC RDW Plt Count MPV Neut % (Auto) Lymph % (Auto) [place] % (Auto) Eos % (Auto) Baso % (Auto) Neut # (Auto) Lymph # (Auto) [place] # (Auto) Eos # (Auto) Baso # (Auto) Haptoglobin 91 PT INR Sodium Potassium Chloride Carbon Dioxide Anion Gap BUN Creatinine Estimated Creat Clear Estimated GFR Est GFR ( Amer) Glucose POC Glucose 103 Calcium Magnesium Total Bilirubin AST ALT Alkaline Phosphatase Lactate Dehydrogenase 216 L Troponin I Total Protein Albumin Globulin Albumin/Globulin Ratio Vitamin B12 Folate TSH Free T4 DS: Diagnosis Discharge Diagnosis (1) Positive occult stool blood test: Status: Acute Code(s): R19.5 - Other fecal abnormalities (2) Symptomatic anemia: Status: Acute Code(s): D64.9 - Anemia, unspecified (3) Iron deficiency anemia: Status: Acute Code(s): D50.9 - Iron deficiency anemia, unspecified (4) Anemia in chronic kidney disease: Status: Acute Code(s): N18.9 - Chronic kidney disease, unspecified; D63.1 - Anemia in chronic kidney disease Meds Home Medications and Allergies Home Medications ?Medication ?Instructions ?Recorded ?Confirmed ?Type aspirin 81 mg tablet,delayed 81 mg PO DAILY 12/01/17 01/17/25 History release (Adult Low Dose Aspirin) oxycodone-acetaminophen 10 mg-325 1 tab PO QID 05/23/18 01/17/25 History mg tablet (Percocet) alprazolam 0.5 mg tablet (Xanax) 0.5 mg PO TID 11/29/19 01/17/25 History levothyroxine 25 mcg tablet 25 mcg PO DAILY 06/05/21 01/17/25 History insulin glargine 100 60 units SQ DAILY 02/22/22 01/17/25 History unit-lixisenatide 33 mcg/mL subcutaneous pen febuxostat 40 mg tablet 40 mg PO DAILY 02/09/23 01/17/25 History potassium chloride 20 mEq 20 meq PO BID 04/15/23 01/17/25 History tablet,extended release(part/cryst) calcitriol 0.25 mcg capsule 0.25 mcg PO DAILY 10/30/23 01/17/25 History duloxetine 60 mg capsule,delayed 60 mg PO HS 03/06/24 01/17/25 History release dexlansoprazole 30 mg 30 mg PO DAILY 03/29/24 01/17/25 History capsule,biphase delayed release (Dexilant) metolazone 2.5 mg tablet 2.5 mg PO DAILYP PRN edema 06/15/24 01/17/25 History metoprolol succinate 100 mg 100 mg PO BID 06/27/24 01/17/25 History tablet,extended release 24 hr empagliflozin 10 mg tablet 10 mg PO DAILY #30 tabs 07/17/24 01/17/25 Rx (Jardiance) amiodarone 200 mg tablet 200 mg PO DAILY 01/04/25 01/17/25 History bumetanide 2 mg tablet 2 mg PO DAILY #60 tabs 01/05/25 01/17/25 Rx ferrous sulfate 325 mg (65 mg 325 mg PO TID #90 tabs 01/05/25 01/17/25 Rx iron) tablet polyethylene glycol 3350 17 17 g PO DAILY #510 grams 01/05/25 01/17/25 Rx gram/dose oral powder (Miralax) sodium,potassium,mag sulfates 17.5 See Rx Instructions PO .COMPLEX 01/05/25 01/17/25 Rx gram-3.13 gram-1.6 gram oral soln #354 mL (Suprep Bowel Prep Kit) spironolactone 50 mg tablet 50 mg PO DAILY 30 days #180 tabs 01/05/25 01/17/25 Rx warfarin 4 mg tablet 2 mg (1/2 x 4 mg) PO DAILY 30 days 01/05/25 01/17/25 Rx #0 tabs enoxaparin 100 mg/mL subcutaneous 86 mg (0.86 mL) SQ Q12H 01/17/25 01/17/25 Rx syringe (Lovenox) perioperative anticoagulation 10 days #17.2 mL insulin glargine 100 unit/mL (3 14 unit SQ HS 01/17/25 01/17/25 History mL) subcutaneous pen (Lantus Solostar U-100 Insulin) New Prescriptions to Start Prescriptions: ferrous sulfate Sandeep Hopson polyethylene glycol 3350 [Miralax] Sandeep Hopson Allergies Allergy/AdvReac Type Severity Reaction Status Date / Time codeine (CODEINE) Allergy Unknown nausea, Verified 01/17/25 13:50 swelling Corticosteroids Allergy Unknown Unknown Verified 01/17/25 13:50 (Glucocorticoids) allergy (CORTICOSTEROIDS reaction (GLUCOCORTICOIDS)) NSAIDS (Non-Steroidal Allergy Unknown Other Verified 01/17/25 13:50 Anti-Inflamma rosuvastatin (From CRESTOR) Allergy Unknown Unknown Verified 01/17/25 13:50 allergy reaction theophylline (From DAVID-DUR) Allergy Unknown Unknown Verified 01/17/25 13:50 allergy reaction Iodinated Contrast Media AdvReac Severe shuts Verified 01/17/25 13:50 (IODINATED CONTRAST- ORAL kidneys AND IV DYE) down and bleeding buprenorphine (From BUPRENEX) AdvReac Intermediate Nausea Verified 01/17/25 13:50 levofloxacin (From Levaquin) AdvReac Other Verified 01/17/25 13:50 lisinopril AdvReac Cough Verified 01/17/25 13:50 prednisone AdvReac Unknown Verified 01/17/25 13:50 allergy reaction sacubitril (From Entresto) AdvReac Hypotension Verified 01/17/25 13:50 valsartan (From Entresto) AdvReac Hypotension Verified 01/17/25 13:50 Discharge Plan Disposition Patient Disposition: Home, Self-Care Condition: Fair Follow up Plan Follow up with: Fabio Mathew II, MD [Staff Physician] - 01/17/25 12:00 pm (appointment for 01/10 at 12:00 to have pre-op labs drawn. 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) Shane Serrano PA [Physician Transportation Job Titles] - 01/09/25 Reji Castro MD [Primary Care Provider] - 01/10/25 11:00 am Prescriptions/Medication Reconciliation: New ferrous sulfate 325 mg (65 mg iron) tablet 325 mg PO TID Qty: 90 0RF polyethylene glycol 3350 [Miralax] 17 gram/dose powder 17 g PO DAILY Qty: 510 0RF Continued aspirin [Adult Low Dose Aspirin] 81 mg tablet,delayed release (DR/EC) 81 mg PO DAILY oxycodone-acetaminophen [Percocet] 10-325 mg tablet 1 tab PO QID alprazolam [Xanax] 0.5 mg tablet 0.5 mg PO TID potassium chloride 20 mEq tablet,ER particles/crystals 20 meq PO BID duloxetine 60 mg capsule,delayed release(DR/EC) 60 mg PO HS Patient Comments: TAKE (1) CAPSULE BY MOUTH ONCE A DAY. metolazone 2.5 mg tablet 2.5 mg PO DAILYP PRN (Reason: edema) sodium,potassium,mag sulfates [Suprep Bowel Prep Kit] 17.5-3.13-1.6 gram recon soln See Rx Instructions PO .COMPLEX Qty: 354 0RF Rx Instructions: DILUTE; drink full amount early evening before AND next morning at least 4-5 hr before procedure; follow w 960 mL water PO levothyroxine 25 MCG tablet 25 mcg PO DAILY calcitriol 0.25 mcg Capsule 0.25 mcg PO DAILY insulin glargine-lixisenatide 3 ML insulin pen 60 units SQ DAILY febuxostat 40 mg tablet 40 mg PO DAILY dexlansoprazole [Dexilant] 30 mg capsule,biphase delayed releas 30 mg PO DAILY Patient Comments: TAKE (1) CAPSULE BY MOUTH ONCE A DAY. metoprolol succinate 100 mg tablet extended release 24 hr 100 mg PO BID Jardiance 10 mg tablet 10 mg PO DAILY Qty: 30 1RF amiodarone 200 mg tablet 200 mg PO DAILY Changed bumetanide 2 mg tablet 2 mg PO DAILY Qty: 60 5RF warfarin 4 mg tablet 2 mg PO DAILY 30 Days Qty: 0 0RF spironolactone 50 mg tablet 50 mg PO DAILY 30 Days Qty: 180 3RF Discontinued warfarin 4 mg tablet 2 mg PO SUTUWETHSA No Action enoxaparin [Lovenox] 100 mg/mL syringe 86 mg SQ Q12H 10 Days Qty: 17.2 0RF Rx Instructions: 86 kg insulin glargine [Lantus Solostar U-100 Insulin] 100 unit/mL (3 mL) insulin pen 14 unit SQ HS Patient Comments: INJECT 10 UNITS SUB-Q AT BEDTIME. EACH PEN EXPIRES 28 DAYS AFTER FIRST USE. Problem Reconciliation Problems Reviewed?: Yes Patient Discharge Instructions Additional Instructions: Please follow-up with Coumadin clinic in 1 week to recheck your INR. Patient Instructions: DI for Gastrointestinal Bleeding, Coumadin Vitamin K/ Diet Print Language: Kyrgyz Providers Primary Care Provider: Reji Castro Admit Provider: Sandeep Hopson Attending Provider: Sandeep Hopson
[2025-01-05 16:19] LABS: Hematocrit 27.3 % (37.0-47.0)
[2025-01-05 16:52] LABS: Hemoglobin 8.2 g/dL (12.2-16.2)
[2025-01-06 12:49] LABS: Peripheral Smear Review Scanned Result
--- NOTE | 2025-01-08 10:31 | SW/DCPLANNER ---
Spoke with patient on the phone. Patient stated that she is doing better. Patient stated that she is aware of her upcoming appointments. Patient stated that she was able to [facility] Patient stated that she has no concerns or questions at this time. Yasmin Gilliland
== END 2025-01-05 17:45 | disposition home or self-care (01) ==
LOC: ER 12:39 → 2ND 13:22
PROVIDERS: Admitting Provider Student in an Organized Health Care Education/Training Program; Emergency Provider Emergency Medicine; PCP Internal Medicine Adolescent Medicine; Visit Provider Student in an Organized Health Care Education/Training Program
DX: D59.19 Other autoimmune hemolytic anemia (principal); R19.5 Other fecal abnormalities; D50.9 Iron deficiency anemia, unspecified; N18.9 Chronic kidney disease, unspecified; D63.1 Anemia in chronic kidney disease; E55.9 Vitamin D deficiency, unspecified; I48.20 Chronic atrial fibrillation, unspecified; E11.22 Type 2 diabetes mellitus with diabetic chronic kidney disease; N18.30 Chronic kidney disease, stage 3 unspecified; I25.10 Atherosclerotic heart disease of native coronary artery without angina pectoris; Z79.4 Long term (current) use of insulin; K92.2 Gastrointestinal hemorrhage, unspecified; E03.9 Hypothyroidism, unspecified; I13.0 Hypertensive heart and chronic kidney disease with heart failure and stage 1 through stage 4 chronic kidney disease, or unspecified chronic kidney disease; I50.22 Chronic systolic (congestive) heart failure; Z95.810 Presence of automatic (implantable) cardiac defibrillator; Z82.49 Family history of ischemic heart disease and other diseases of the circulatory system; Z79.01 Long term (current) use of anticoagulants; Z88.1 Allergy status to other antibiotic agents; Z79.899 Other long term (current) drug therapy; Z79.82 Long term (current) use of aspirin; Z88.8 Allergy status to other drugs, medicaments and biological substances; Z79.84 Long term (current) use of oral hypoglycemic drugs; Z79.890 Hormone replacement therapy; Z95.818 Presence of other cardiac implants and grafts; Z88.5 Allergy status to narcotic agent; Z87.891 Personal history of nicotine dependence; Z95.2 Presence of prosthetic heart valve
CPT/HCPCS: 36415; 36430; 71250; 74176; 80048; 80053; 81001; 82272; 82607; 82746; 82962; 83010; 83605; 83615; 83735; 84439; 84443; 84484; 85014; 85018; 85025; 85044; 85610; 85730; 93005; 93308; 99285; G0328; G0378; J1642; J1756; J7030; P9016

== ENCOUNTER 2025-01-12 08:55 | Outpatient (CLI) | payer MEDICARE, MEDICAID, SELFPAY ==
[2025-01-12] VITALS (12 sets, daily range): BP systolic 108–147; BP diastolic 65–95; PULSE 78–82; RESP 16–17; TEMP 36.1–36.8; O2SAT 94–97; BMI 32.5
[2025-01-12] MEDS: SODIUM CHLORIDE 0.9% 50ML BAG 50 ML IV (09:22)
[2025-01-12] MEDS: FERRIC CARBOXYMALTOSE 750 MG in 0.9 % SODIUM CHLORIDE 250 ML 530 MG IV (09:22)
[2025-01-12 09:28] LABS: Basophils # 0.1 K/mm3 (0-0.2); Basophils % 0.7 % (0.1-2.0); Eosinophils # 0.1 K/mm3 (0.0-0.4); Eosinophils % 1.9 % (0.1-12.0); Hematocrit 25.6 % (37.0-47.0); Hemoglobin 7.3 g/dL (12.2-16.2); Lymphocytes # 0.3 K/mm3 (0.7-4.5); Lymphocytes % 3.9 % (10-50); Mean Corpuscular HGB Conc 28.5 g/dL (31.8-35.4); Mean Corpuscular Hemoglobin 24.9 pg (27.0-31.2); Mean Corpuscular Volume 87.4 fl (81-99); Mean Platelet Volume 9.9 fl (7.4-10.4); Monocytes # 0.7 K/mm3 (0.1-1.0); Monocytes % 9.1 % (1.7-9.3); Neutrophils # 6.3 K/mm3 (1.8-7.8); Neutrophils % 83.9 % (37.0-80.0); Platelet Count 258 K/mm3 (142-424); Red Blood Count 2.93 M/mm3 (4.20-5.40); Red Cell Distribution Width 20.2 % (11.5-17.5); White Blood Count 7.5 K/mm3 (4.8-10.8)
[2025-01-12 09:35] LABS: Chloride 94 mmol/L (98-107); Sodium 134 mmol/L (136-145)
[2025-01-12 09:37] LABS: Blood Urea Nitrogen 62 mg/dl (7-17); Estimated Glomerular Filt Rate 24 ml/min (>60); GFR (African American) 29 ML/MIN (>60)
[2025-01-12 09:38] LABS: Calcium 9.1 mg/dl (8.4-10.2); Carbon Dioxide 29 mmol/L (22.0-30.0); Glucose 209 mg/dl (74-100); INR 2.13 (0.9-1.1); Prothrombin Time 21.8 seconds (9.2-12.1)
[2025-01-12] MEDS: diphenhydrAMINE 25MG CAPSULE 25 MG PO (11:08)
[2025-01-12] MEDS: ACETAMINOPHEN 325MG TAB 650 MG (11:08)
[2025-01-12] MEDS: 0.9 % SODIUM CHLORIDE 250 ML 25 ML IV (11:09)
--- NOTE | 2025-01-12 11:22 | PC.NURSE ---
1008-RN ishan blood from port for type and crossmatch for 1 unit PRBC's. Zhane from lab present to collect blood.
--- NOTE | 2025-01-12 11:45 | PC.NURSE ---
1144-Blood transfusion started at 100 ml/hr at this time.
--- NOTE | 2025-01-12 12:17 | PC.NURSE ---
1214-Increased rate to 150 ml/hr at this time.
--- NOTE | 2025-01-12 13:11 | PC.NURSE ---
1244-Increased rate to 200 ml/hr at this time.
== END 2025-01-12 14:50 | disposition home or self-care (01) ==
LOC: INF 08:55
PROVIDERS: PCP Internal Medicine Adolescent Medicine; Visit Provider Internal Medicine Medical Oncology
DX: D64.9 Anemia, unspecified (principal); Z79.01 Long term (current) use of anticoagulants
CPT/HCPCS: 36430; 80048; 85025; 85610; 86850; 96365; J1439; J1642; P9016

== ENCOUNTER 2025-01-16 09:09 | Outpatient (CLI) | payer MEDICARE, MEDICAID, SELFPAY ==
[2025-01-16 09:40] LABS: Basophils % 0.4 % (0.1-2.0); Eosinophils # 0.2 K/mm3 (0.0-0.4); Eosinophils % 2.1 % (0.1-12.0); Hematocrit 27.9 % (37.0-47.0); Lymphocytes # 0.3 K/mm3 (0.7-4.5); Lymphocytes % 3.4 % (10-50); Mean Corpuscular HGB Conc 28.7 g/dL (31.8-35.4); Mean Corpuscular Hemoglobin 25.8 pg (27.0-31.2); Mean Platelet Volume 9.6 fl (7.4-10.4); Monocytes # 0.8 K/mm3 (0.1-1.0); Monocytes % 9.7 % (1.7-9.3); Neutrophils # 7.1 K/mm3 (1.8-7.8); Neutrophils % 83.6 % (37.0-80.0); Platelet Count 289 K/mm3 (142-424); Red Cell Distribution Width 22.5 % (11.5-17.5); White Blood Count 8.5 K/mm3 (4.8-10.8)
[2025-01-16 09:53] VITALS: BP 115/65; PULSE 82; RESP 18; TEMP 36.7; O2SAT 97
[2025-01-16] MEDS: SODIUM CHLORIDE 0.9% 50ML BAG 50 ML IV (09:53)
[2025-01-16] MEDS: FERRIC CARBOXYMALTOSE 750 MG in 0.9 % SODIUM CHLORIDE 250 ML 530 MG IV (09:53)
[2025-01-16] MEDS: SODIUM CHLORIDE 0.9% 10ML FLUSH SYRINGE 10 ML IV (09:53)
[2025-01-16 10:16] LABS: INR 2.18 (0.9-1.1); Prothrombin Time 22.2 seconds (9.2-12.1)
[2025-01-16 10:45] VITALS: BP 109/57; PULSE 85; RESP 18; TEMP 36.7; O2SAT 98
[2025-01-16 11:51] LABS: Chloride 94 mmol/L (98-107); Potassium 4.6 mmoL/L (3.5-5.1); Sodium 136 mmol/L (136-145)
[2025-01-16 11:54] LABS: Anion Gap 15.6 mEq/L (5-15); Blood Urea Nitrogen 53 mg/dl (7-17); Calcium 9.4 mg/dl (8.4-10.2); Carbon Dioxide 31 mmol/L (22.0-30.0); Estimated Glomerular Filt Rate 24 ml/min (>60); GFR (African American) 29 ML/MIN (>60); Glucose 167 mg/dl (74-100)
== END 2025-01-16 10:50 | disposition home or self-care (01) ==
LOC: INF 09:09
PROVIDERS: Internal Medicine; PCP Internal Medicine Adolescent Medicine; Visit Provider Internal Medicine Medical Oncology
DX: D64.9 Anemia, unspecified (principal); I50.32 Chronic diastolic (congestive) heart failure; I42.9 Cardiomyopathy, unspecified
CPT/HCPCS: 80048; 85025; 85610; 96365; J1439

== ENCOUNTER 2025-01-31 14:30 | Outpatient (CLI) | payer MEDICARE, SELFPAY ==
[2025-01-31 15:16] LABS: PHA INR Fingerstick 2.3 (0.9-1.1)
== END 2025-01-31 15:27 ==
LOC: ACC 14:31
PROVIDERS: PCP Internal Medicine Adolescent Medicine; Visit Provider Internal Medicine Adolescent Medicine
DX: Z95.2 Presence of prosthetic heart valve (principal); Z79.01 Long term (current) use of anticoagulants
CPT/HCPCS: 85610; 99211; G0463

== ENCOUNTER 2025-02-02 10:22 | Outpatient (CLI) | payer MEDICARE, SELFPAY ==
[2025-02-02 10:28] VITALS: BMI 32.4
[2025-02-02 10:51] LABS: Basophils # 0.1 K/mm3 (0-0.2); Basophils % 0.7 % (0.1-2.0); Eosinophils # 0.1 K/mm3 (0.0-0.4); Eosinophils % 0.7 % (0.1-12.0); Hematocrit 29.4 % (37.0-47.0); Hemoglobin 8.6 g/dL (12.2-16.2); Lymphocytes # 0.2 K/mm3 (0.7-4.5); Lymphocytes % 2.5 % (10-50); Mean Corpuscular HGB Conc 29.3 g/dL (31.8-35.4); Mean Corpuscular Volume 92.5 fl (81-99); Mean Platelet Volume 9.6 fl (7.4-10.4); Monocytes # 0.8 K/mm3 (0.1-1.0); Monocytes % 8.9 % (1.7-9.3); Neutrophils # 7.5 K/mm3 (1.8-7.8); Neutrophils % 86.9 % (37.0-80.0); Platelet Count 255 K/mm3 (142-424); Red Blood Count 3.18 M/mm3 (4.20-5.40); White Blood Count 8.7 K/mm3 (4.8-10.8)
[2025-02-02 11:07] LABS: Alanine Aminotransferase 20 U/L (12-78); Albumin Level 4.1 g/dl (3.5-5.0); Albumin/Globulin Ratio 1.5 (1.1-1.8); Alkaline Phosphatase 103 U/L (38-126); Anion Gap 9.8 mEq/L (5-15); Aspartate Amino Transferase 25 U/L (14-36); Blood Urea Nitrogen 46 mg/dl (7-17); Calcium 9.5 mg/dl (8.4-10.2); Carbon Dioxide 31 mmol/L (22.0-30.0); Chloride 97 mmol/L (98-107); Creatinine Clearance Estimated 38 mL/min (50-200); Estimated Glomerular Filt Rate 24 ml/min (>60); GFR (African American) 29 ML/MIN (>60); Globulin 2.8 g/dL (1.3-3.2); Glucose 160 mg/dl (74-100); Potassium 4.8 mmoL/L (3.5-5.1); Sodium 133 mmol/L (136-145); Total Protein,Serum 6.9 g/dl (6.3-8.2)
[2025-02-02 11:13] LABS: Iron 36 ug/dL (37-170)
[2025-02-02 11:23] LABS: Total Iron Binding Capacity 440 ug/dL (265-497)
[2025-02-02 11:51] LABS: Ferritin 127 ng/ml (11.1-264)
[2025-02-02] MEDS: SODIUM CHLORIDE 0.9% 10ML FLUSH SYRINGE 10 ML IV (11:55)
== END 2025-02-02 11:49 | disposition home or self-care (01) ==
LOC: INF 10:25
PROVIDERS: PCP Internal Medicine Adolescent Medicine; Visit Provider Internal Medicine Medical Oncology
DX: D50.0 Iron deficiency anemia secondary to blood loss (chronic) (principal)
CPT/HCPCS: 36591; 80053; 82728; 83540; 83550; 85025; J1642

== ENCOUNTER 2025-02-06 08:56 | Outpatient (CLI) | payer MEDICARE, SELFPAY ==
[2025-02-06 09:21] LABS: PHA INR Fingerstick 2.7 (0.9-1.1)
[2025-02-06 09:43] LABS: Basophils # 0.1 K/mm3 (0-0.2); Basophils % 0.7 % (0.1-2.0); Eosinophils # 0.1 K/mm3 (0.0-0.4); Eosinophils % 1.3 % (0.1-12.0); Hematocrit 29.9 % (37.0-47.0); Hemoglobin 8.8 g/dL (12.2-16.2); Lymphocytes # 0.2 K/mm3 (0.7-4.5); Lymphocytes % 2.4 % (10-50); Mean Corpuscular HGB Conc 29.4 g/dL (31.8-35.4); Mean Corpuscular Hemoglobin 26.7 pg (27.0-31.2); Mean Corpuscular Volume 90.9 fl (81-99); Mean Platelet Volume 9.3 fl (7.4-10.4); Monocytes # 0.7 K/mm3 (0.1-1.0); Monocytes % 8.6 % (1.7-9.3); Neutrophils # 7.1 K/mm3 (1.8-7.8); Neutrophils % 86.8 % (37.0-80.0); Platelet Count 266 K/mm3 (142-424); Red Blood Count 3.29 M/mm3 (4.20-5.40); White Blood Count 8.2 K/mm3 (4.8-10.8)
[2025-02-06] MEDS: SODIUM CHLORIDE 0.9% 10ML FLUSH SYRINGE 10 ML IV (10:30)
== END 2025-02-06 23:59 | disposition home or self-care (01) ==
LOC: ACC 08:57 → INF 09:33
PROVIDERS: PCP Internal Medicine Adolescent Medicine; Visit Provider Internal Medicine Medical Oncology
DX: D50.9 Iron deficiency anemia, unspecified (principal)
CPT/HCPCS: 36591; 85025; 85610; 99211; G0463; J1642

== ENCOUNTER 2025-02-09 09:08 | Outpatient (CLI) | payer MEDICARE, SELFPAY ==
[2025-02-09] MEDS: ferumoxytoL 510 MG in 0.9 % SODIUM CHLORIDE 50 ML 268 MG IV (09:27)
[2025-02-09 09:30] VITALS: BP 107/71; PULSE 79; RESP 17; O2SAT 93
[2025-02-09] MEDS: 0.9 % SODIUM CHLORIDE 50 ML 100 ML IV (09:30)
[2025-02-09 10:05] VITALS: BP 125/71; PULSE 78; RESP 16
== END 2025-02-09 10:30 | disposition home or self-care (01) ==
LOC: INF 09:09
PROVIDERS: PCP Internal Medicine Adolescent Medicine; Visit Provider Internal Medicine Medical Oncology
DX: D64.9 Anemia, unspecified (principal)
CPT/HCPCS: 96365; J1642; Q0138

== ENCOUNTER 2025-02-12 10:10 | Outpatient (CLI) | payer MEDICARE, SELFPAY ==
[2025-02-12 10:14] VITALS: BMI 34.3
[2025-02-12 10:29] LABS: Basophils # 0.1 K/mm3 (0-0.2); Basophils % 0.6 % (0.1-2.0); Eosinophils # 0.2 K/mm3 (0.0-0.4); Eosinophils % 2.2 % (0.1-12.0); Hematocrit 30.8 % (37.0-47.0); Hemoglobin 8.9 g/dL (12.2-16.2); Lymphocytes # 0.2 K/mm3 (0.7-4.5); Lymphocytes % 2.5 % (10-50); Mean Corpuscular HGB Conc 28.9 g/dL (31.8-35.4); Mean Corpuscular Hemoglobin 26.1 pg (27.0-31.2); Mean Corpuscular Volume 90.3 fl (81-99); Mean Platelet Volume 9.5 fl (7.4-10.4); Monocytes # 0.7 K/mm3 (0.1-1.0); Monocytes % 8.5 % (1.7-9.3); Neutrophils # 7.2 K/mm3 (1.8-7.8); Neutrophils % 85.5 % (37.0-80.0); Platelet Count 327 K/mm3 (142-424); Red Blood Count 3.41 M/mm3 (4.20-5.40); Red Cell Distribution Width 22.2 % (11.5-17.5); White Blood Count 8.4 K/mm3 (4.8-10.8)
[2025-02-12] MEDS: SODIUM CHLORIDE 0.9% 50ML BAG 50 ML IV (10:32)
[2025-02-12] MEDS: ferumoxytoL 510 MG in 0.9 % SODIUM CHLORIDE 50 ML 268 MG IV (10:32)
[2025-02-12 10:35] VITALS: BP 124/79; PULSE 79; RESP 18; O2SAT 93
[2025-02-12] MEDS: SODIUM CHLORIDE 0.9% 10ML FLUSH SYRINGE 10 ML IV (11:15)
[2025-02-12 11:20] VITALS: BP 132/71; PULSE 81; RESP 18; O2SAT 93
--- NOTE | 2025-02-12 13:25 | XR_ITS ---
FINAL REPORT CLINICAL HISTORY: PAIN..fall on wednesday FINDINGS: RIGHT HAND Three views demonstrate no acute fracture or dislocation. The visualized joint spaces are normally aligned. The soft tissues are unremarkable. IMPRESSION: No acute bony abnormality. Reviewed, Interpreted and Dictated by Chitra Velasquez MD Transcribed by Phylicia Walker Authenticated and [facility]
--- NOTE | 2025-02-12 13:25 | XR_ITS ---
FINAL REPORT CLINICAL HISTORY: fall on sat..rib pain COMPARISON: 12/15/2024 FINDINGS: 2 views of the chest were obtained . Patient is status post median sternotomy. Support tubes and lines are unchanged. The heart enlarged but unchanged. The mediastinum is within normal limits. There are stable interstitial opacities. There is a new, focal rounded opacity in the right upper lobe projecting over the posterior right fifth rib which could be related to airspace disease, nodule or related to the rib. There is no pneumothorax. Osseous structures are unremarkable. IMPRESSION: New rounded opacity in the right upper lobe, projecting over the right fifth rib which could relate to airspace disease, nodule or rib. Consider CT for further evaluation. Reviewed, Interpreted and Dictated by Chitra Velasquez MD Transcribed by Phylicia Walker Authenticated and [facility]
== END 2025-02-12 11:20 | disposition home or self-care (01) ==
PROVIDERS: PCP Internal Medicine Adolescent Medicine; Visit Provider Internal Medicine Medical Oncology
DX: D50.9 Iron deficiency anemia, unspecified (principal)
CPT/HCPCS: 71046; 73130; 85025; 96365; J1642; Q0138

== ENCOUNTER 2025-02-15 08:51 | Outpatient (CLI) | payer MEDICARE, SELFPAY ==
[2025-02-15] MEDS: SODIUM CHLORIDE 0.9% 50ML BAG 50 ML IV (09:10)
[2025-02-15] MEDS: SODIUM CHLORIDE 0.9% 10ML FLUSH SYRINGE 10 ML IV (09:11)
[2025-02-15 09:16] VITALS: BP 115/67; PULSE 79; RESP 18; TEMP 36.6; O2SAT 94
[2025-02-15] MEDS: ferumoxytoL 510 MG in 0.9 % SODIUM CHLORIDE 50 ML 268 MG IV (09:16)
[2025-02-15 09:40] VITALS: BP 112/72; PULSE 80; RESP 18; O2SAT 94
== END 2025-02-15 09:45 | disposition home or self-care (01) ==
LOC: INF 08:51
PROVIDERS: PCP Internal Medicine Adolescent Medicine; Visit Provider Internal Medicine Medical Oncology
DX: D50.9 Iron deficiency anemia, unspecified (principal)
CPT/HCPCS: 96365; J1642; Q0138

== ENCOUNTER 2025-02-21 09:13 | Outpatient (CLI) | payer MEDICARE, SELFPAY ==
[2025-02-21 09:17] VITALS: BMI 32.2
[2025-02-21 09:40] LABS: Basophils # 0.1 K/mm3 (0-0.2); Basophils % 0.6 % (0.1-2.0); Eosinophils # 0.1 K/mm3 (0.0-0.4); Eosinophils % 1.6 % (0.1-12.0); Lymphocytes # 0.3 K/mm3 (0.7-4.5); Mean Corpuscular HGB Conc 28.6 g/dL (31.8-35.4); Mean Corpuscular Hemoglobin 27.5 pg (27.0-31.2); Mean Corpuscular Volume 96.2 fl (81-99); Mean Platelet Volume 9.5 fl (7.4-10.4); Monocytes # 0.6 K/mm3 (0.1-1.0); Monocytes % 7.4 % (1.7-9.3); Neutrophils # 7.2 K/mm3 (1.8-7.8); Neutrophils % 86.6 % (37.0-80.0); Platelet Count 271 K/mm3 (142-424); Red Blood Count 2.91 M/mm3 (4.20-5.40); White Blood Count 8.3 K/mm3 (4.8-10.8)
[2025-02-21 09:51] LABS: Red Cell Distribution Width 25.6 % (11.5-17.5)
[2025-02-21 10:25] LABS: INR 6.71 (0.9-1.1); Prothrombin Time 62.2 seconds (10.1-12.5)
[2025-02-21] MEDS: SODIUM CHLORIDE 0.9% 10ML FLUSH SYRINGE 10 ML IV (10:57)
== END 2025-02-21 23:59 | disposition home or self-care (01) ==
LOC: INF 09:14
PROVIDERS: PCP Internal Medicine Adolescent Medicine; Visit Provider Internal Medicine Medical Oncology
DX: Z79.01 Long term (current) use of anticoagulants (principal)
CPT/HCPCS: 36591; 85025; 85610; J1642

== ENCOUNTER 2025-02-27 08:26 | Outpatient (CLI) | payer MEDICARE, SELFPAY ==
[2025-02-27] VITALS (20 sets, daily range): BP systolic 96–122; BP diastolic 50–77; PULSE 80–85; RESP 20; TEMP 35–37.1; O2SAT 95–99; BMI 32.5
[2025-02-27 09:08] LABS: Basophils % 0.5 % (0.1-2.0); Eosinophils # 0.1 K/mm3 (0.0-0.4); Eosinophils % 1.6 % (0.1-12.0); Hematocrit 22.7 % (37.0-47.0); Lymphocytes # 0.3 K/mm3 (0.7-4.5); Lymphocytes % 3.4 % (10-50); Mean Corpuscular HGB Conc 28.2 g/dL (31.8-35.4); Mean Corpuscular Hemoglobin 28.1 pg (27.0-31.2); Mean Corpuscular Volume 99.6 fl (81-99); Monocytes # 0.8 K/mm3 (0.1-1.0); Monocytes % 9.5 % (1.7-9.3); Neutrophils # 7.5 K/mm3 (1.8-7.8); Neutrophils % 84.3 % (37.0-80.0); Platelet Count 305 K/mm3 (142-424); Red Blood Count 2.28 M/mm3 (4.20-5.40); White Blood Count 8.9 K/mm3 (4.8-10.8)
[2025-02-27 09:14] LABS: Red Cell Distribution Width 25.2 % (11.5-17.5)
[2025-02-27 09:15] LABS: Hemoglobin 6.4 g/dL (12.2-16.2); INR 3.27 (0.9-1.1); Prothrombin Time 32.6 seconds (10.1-12.5)
[2025-02-27] MEDS: ACETAMINOPHEN 325MG TAB 650 MG (10:12)
[2025-02-27] MEDS: 0.9 % SODIUM CHLORIDE 250 ML 25 ML IV (10:12)
[2025-02-27] MEDS: diphenhydrAMINE 25MG CAPSULE 25 MG PO (10:13)
--- NOTE | 2025-02-27 10:13 | HMH.PHAINT1 ---
Pharmacy Intervention Comments: INR 3.2 TODAY IN OUTPATIENT INFUSION. RECOMMENDED CONTINUING WITH WARFARIN 2 MG DAILY UNTIL FOLLOW UP NEXT WEEK.
== END 2025-02-27 16:26 | disposition home or self-care (01) ==
LOC: INF 08:26
PROVIDERS: PCP Internal Medicine Adolescent Medicine; Visit Provider Internal Medicine Medical Oncology
DX: D64.9 Anemia, unspecified (principal); Z79.01 Long term (current) use of anticoagulants
CPT/HCPCS: 36430; 85025; 85610; 86850; J1642; P9016

== ENCOUNTER 2025-03-06 08:42 | Outpatient (CLI) | payer MEDICARE, SELFPAY ==
[2025-03-06] VITALS (11 sets, daily range): BP systolic 105–122; BP diastolic 67–79; PULSE 80–81; RESP 14–17; TEMP 36.7–37.2; O2SAT 95–98; BMI 32.2
[2025-03-06 09:31] LABS: Basophils # 0.1 K/mm3 (0-0.2); Basophils % 0.8 % (0.1-2.0); Eosinophils # 0.2 K/mm3 (0.0-0.4); Eosinophils % 2.7 % (0.1-12.0); Hematocrit 25.3 % (37.0-47.0); Hemoglobin 7.3 g/dL (12.2-16.2); Lymphocytes # 0.2 K/mm3 (0.7-4.5); Lymphocytes % 3.2 % (10-50); Mean Corpuscular HGB Conc 28.9 g/dL (31.8-35.4); Mean Corpuscular Hemoglobin 27.7 pg (27.0-31.2); Mean Corpuscular Volume 95.8 fl (81-99); Mean Platelet Volume 10.1 fl (7.4-10.4); Monocytes # 0.7 K/mm3 (0.1-1.0); Neutrophils # 5.4 K/mm3 (1.8-7.8); Neutrophils % 81.7 % (37.0-80.0); Nucleated Red Blood Cells # 0 10^3/uL; Nucleated Red Blood Cells % 0 %; Platelet Count 272 K/mm3 (142-424); Red Blood Count 2.64 M/mm3 (4.20-5.40); Red Cell Distribution Width 20.6 % (11.5-17.5); Red Cell Distribution Width-SD 72.4 fL; White Blood Count 6.6 K/mm3 (4.8-10.8)
[2025-03-06 09:37] LABS: INR 2.64 (0.9-1.1); Prothrombin Time 26.9 seconds (10.1-12.5)
[2025-03-06] MEDS: diphenhydrAMINE 25MG CAPSULE 25 MG PO (11:12)
[2025-03-06] MEDS: ACETAMINOPHEN 325MG TAB 650 MG PO (11:18)
[2025-03-06] MEDS: 0.9 % SODIUM CHLORIDE 250 ML 25 ML IV (11:19)
== END 2025-03-06 14:55 ==
LOC: INF 08:42
PROVIDERS: PCP Internal Medicine Adolescent Medicine; Visit Provider Internal Medicine Medical Oncology
DX: Z79.01 Long term (current) use of anticoagulants (principal)
CPT/HCPCS: 36430; 85025; 85610; 86850; J1642; P9016

== ENCOUNTER 2025-03-13 09:14 | Outpatient (CLI) | payer MEDICARE, SELFPAY ==
[2025-03-13] VITALS (10 sets, daily range): BP systolic 93–116; BP diastolic 50–66; PULSE 79–81; RESP 20; TEMP 36.3–36.8; O2SAT 94–98; BMI 32.2
[2025-03-13 09:41] LABS: Basophils % 0.5 % (0.1-2.0); Eosinophils # 0.2 Kmm3 (0.0-0.4); Eosinophils % 2.1 % (0.1-12.0); Hematocrit 24.7 % (37.0-47.0); Hemoglobin 7.2 g/dL (12.2-16.2); Lymphocytes # 0.3 K/mm3 (0.7-4.5); Lymphocytes % 3.7 % (10-50); Mean Corpuscular HGB Conc 29.1 g/dL (31.8-35.4); Mean Corpuscular Hemoglobin 26.8 pg (27.0-31.2); Mean Corpuscular Volume 91.8 fl (81-99); Mean Platelet Volume 9.4 fl (7.4-10.4); Monocytes # 0.7 K/mm3 (0.1-1.0); Neutrophils # 6.3 K/mm3 (1.8-7.8); Neutrophils % 84.2 % (37.0-80.0); Nucleated Red Blood Cells # 0 10^3/uL; Nucleated Red Blood Cells % 0 %; Platelet Count 250 K/mm3 (142-424); Red Blood Count 2.69 M/mm3 (4.20-5.40); Red Cell Distribution Width 19.4 % (11.5-17.5); Red Cell Distribution Width-SD 65.4 fL; White Blood Count 7.5 K/mm3 (4.8-10.8)
[2025-03-13 09:52] LABS: MANUAL DIFFERENTIAL MANUAL DIFFERENTIAL (MANUAL DIFF)
[2025-03-13 09:59] LABS: Iron 46 ug/dL (37-170)
[2025-03-13 10:08] LABS: Total Iron Binding Capacity 518 ug/dL (265-497)
[2025-03-13] MEDS: diphenhydrAMINE 25MG CAPSULE 25 MG PO (10:34)
[2025-03-13] MEDS: ACETAMINOPHEN 325MG TAB 650 MG PO (10:34)
[2025-03-13] MEDS: 0.9 % SODIUM CHLORIDE 250 ML 25 ML IV (10:34)
[2025-03-13 10:36] LABS: Ferritin 52.6 ng/ml (11.1-264)
[2025-03-13 11:17] LABS: Eosinophils % 1 % (0-3); Hypochromasia 2+; Lymphocytes % 4 % (10-50); Monocytes % 1 % (2-9); Neutrophils % 94 % (42-76); Platelet Estimate Normal; Total Cells Counted 100
[2025-03-13 11:18] LABS: Anisocytosis 1+
[2025-03-13 15:19] LABS: INR 2.17 (0.9-1.1); Prothrombin Time 22.5 seconds (10.1-12.5)
--- NOTE | 2025-03-13 15:51 | HMH.PHAINT1 ---
Pharmacy Intervention Comments: 03/13/25--INR 2.17. RECEIVED BLOOD TRANSFUSION TODAY. HAS BEEN TAKING WARFARIN 2 MG DAILY. RECOMMENDED PATIENT TAKE WARFARIN 4 MG TODAY, THEN 4 MG WED/WED; 2 MG ON WED/WED/WED/WED/WED.
== END 2025-03-13 15:03 | disposition home or self-care (01) ==
LOC: INF 09:14
PROVIDERS: PCP Internal Medicine Adolescent Medicine; Visit Provider Internal Medicine Medical Oncology
DX: D64.9 Anemia, unspecified (principal)
CPT/HCPCS: 36430; 82728; 83540; 83550; 85007; 85025; 85610; 86850; J1642; P9016

== ENCOUNTER 2025-03-14 13:16 | Outpatient (CLI) | payer MEDICARE, SELFPAY ==
[2025-03-14 13:30] VITALS: BP 103/68; PULSE 80; RESP 18; TEMP 36.7; O2SAT 97
[2025-03-14] MEDS: ferumoxytoL 510 MG in 0.9 % SODIUM CHLORIDE 50 ML 268 MG IV (13:30)
[2025-03-14 14:00] VITALS: BP 101/62; PULSE 78; RESP 18; O2SAT 97
[2025-03-14] MEDS: SODIUM CHLORIDE 0.9% 10ML FLUSH SYRINGE 10 ML IV (15:19)
[2025-03-14] MEDS: SODIUM CHLORIDE 0.9% 50ML BAG 50 ML IV (15:19)
== END 2025-03-14 14:00 | disposition home or self-care (01) ==
LOC: INF 13:16
PROVIDERS: PCP Internal Medicine Adolescent Medicine; Visit Provider Internal Medicine Medical Oncology
DX: D50.9 Iron deficiency anemia, unspecified (principal)
CPT/HCPCS: 96365; J1642; Q0138

== ENCOUNTER 2025-03-20 09:03 | Outpatient (CLI) | payer MEDICARE, SELFPAY ==
[2025-03-20] VITALS (13 sets, daily range): BP systolic 102–123; BP diastolic 53–68; PULSE 78–80; RESP 18–20; TEMP 36.6–36.7; O2SAT 97–98; BMI 32.2
--- OUTSIDE RECORDS SUMMARY | 2025-03-20 09:08 | XMS_ITS ---
[facility] Plan Created on: March 15, 2025 Irina Costa : 1965 Sex: Female Author Organization [employer]. Address [address] [place] [id number] Phone Health Concerns Health Status CKD 4 Health Concerns None
--- OUTSIDE RECORDS SUMMARY | 2025-03-20 09:08 | XMS_ITS | Continuity of Care Document ---
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 Name Role Phone WINNIE MANLEY Unavailable WINNIE MANLEY Admitting WINNIE MANLEY Primary Attending [phone] WESTON TOVAR Primary Care ALLERGIES AND ADVERSE REACTIONS ALLERGIES AND ADVERSE REACTIONS Code System Allergy Substance Adverse Reaction Date Reaction (Severity) Comment Status Reported By Updated By 4053 RXNorm Erythromycin Adverse reaction to substance Not Specified active [id number] on January 26, 2025 3:32:02 PM UTC 2670 RXNorm Codeine Adverse reaction to substance Not Specified active [id number] on January 26, 2025 3:32:02 PM UTC 2193 RXNorm Rocephin Shortness of breath/diffi culty breathing (Moderate) active [id number] on January 26, 2025 3:32:02 PM UTC 93420 RXNorm Levaquin Shortness of breath/diffi culty breathing (Moderate) active [id number] on January 26, 2025 3:32:02 PM UTC steroids (Free Text Allergy) Shortness of breath/diffi culty breathing (Moderate) active [id number] on January 26, 2025 3:32:02 PM UTC IV CONTRAST - ADD IODINE (Free Text Allergy) Rash (Severe) active [id number] on January 26, 2025 3:32:02 PM UTC Buprenorphine Rash (Mild) active [id number] on January 26, 2025 3:32:02 PM UTC Allopurinol January 20, 2022 5:00:00 AM UTC Rash (Severe) hives active Patient [id number] on January 26, 2025 3:32:01 PM UTC ASSESSMENTS Gastrointestinal hemorrhage ; FAMILY HISTORY RELATION: Father Status: Cause of : Unknown Age at : Unknown SNOMED-CT Diagnosis Age At Onset Information not available PROBLEMS PATIENT PROBLEMS Code Description/Comments Category Status Upddiego johnathan By [id number] Gastrointestinal hemorrhage active [id number] on January 24, 2025 8:42:48 PM UTC RESULTS Patient: RONI NGUYEN Date of : [birth year] LABORATORY RESULTS ORDER 100: HEMATOCRIT AND HE MOGLOBIN (LOINC: 91088-3) ORDER DATE: January 24, 2025 7:34:00 PM UTC Specimen Source: Whole Blood Specimen Type: Whole blood s ample PERFORMING LAB: [address] [id number] Result Comment: Final Result Date: January 24, 2025 7:43:00 PM UTC (TECH: MRB) LOINC TEST FLAG RESULT REFERENCE RANGE UPDA JOHNATHAN BY 718-7 Hemoglobin [Mass/volume] in Blood LL 7.2 g/dL 12.0 g/dL - 15.7 g/dL January 24, 2025 7:43:00 PM UTC (TECH: MRB) 09705-4 Hematocrit [Volume Fraction] of Blood L 25.5 % 36.0 % - 47.0 % January 24, 2025 7:43:00 PM UTC (TECH: MRB) ORDER 200: TYPE/SCREEN (LOIN C: 85587-2) ORDER DATE: January 24, 2025 8:46:00 PM UTC Specimen Source: Whole Blood Specimen Type: Whole blood s ample PERFORMING LAB: [address] [id number] Result Comment: Final Result Date: January 24, 2025 8:32:00 PM UTC (TECH: poa) LOINC TEST FLAG [place] [address]-6 History of blood transfusion Narrative N Completed January 24, 2025 8:32:00 PM UTC (TECH: HL7) 882-1 ABO + Rh group [Type] in Blood N O POSITIVE January 24, 2025 8:32:00 PM UTC (TECH: HL7) 890-4 Blood group antibody screen [Presence] in Serum or Plasma N NEGATIVE January 24, 2025 8:32:00 PM UTC (TECH: HL7) 36598-5 Report comment Narrative N Completed January 24, 2025 8:32:00 PM UTC (TECH: poa) ORDER 301: PRBC UNIT (LOINC: 60963-5) ORDER DATE: January 24, 2025 8:46:00 PM UTC Specimen Source: Whole Blood Specimen Type: Whole blood s ample PERFORMING LAB: [address] [id number] Result Comment: Final Result Date: January 24, 2025 8:32:00 PM UTC (TECH: HL7) LOINC TEST FLAG [place]ULT [place] [address]-5 Report comment Narrative N Transfused January 24, 2025 8:32:00 PM UTC (TECH: lif) 1250-0 Major crossmatch [interpretation] N COMPATIBLE January 24, 2025 8:32:00 PM UTC (TECH: HL7) 881-3 ABO + Rh group [Type] in Serum or Plasma from Blood product unit N O+ January 24, 2025 8:32:00 PM UTC (TECH: HL7) 96295-2 Lot number of Blood product unit N [id number] January 24, 2025 8:32:00 PM UTC (TECH: HL7) 930-8 Blood product reservation [Date and time] N [id number] January 24, 2025 8:32:00 PM UTC (TECH: HL7) 11690-7 Lot number of Blood product unit N [id number] January 24, 2025 8:32:00 PM UTC (TECH: HL7) 75106-9 Lot number of Blood product unit N Red Blood Cells January 24, 2025 8:32:00 PM UTC (TECH: lif) 1322-7 Transfusion volume N 350 M 2024 8:32:00 PM UTC (TECH: MSH) 09743-3 Specimen expiration date of Blood N [id number] January 24, 2025 8:32:00 PM UTC (TECH: HL7) ORDER 302: PRBC UNIT (LOINC: 12910-4) ORDER DATE: January 24, 2025 8:46:00 PM UTC Specimen Source: Whole Blood Specimen Type: Whole blood s ample PERFORMING LAB: [address] [id number] Result Comment: Final Result Date: January 24, 2025 9:32:00 PM UTC (TECH: HL7) LOINC TEST FLAG RESULT [place] [address]-5 Report comment Narrative N Transfused January 24, 2025 9:32:00 PM UTC (TECH: lif) 1250-0 Major crossmatch [interpretation] N COMPATIBLE January 24, 2025 9:32:00 PM UTC (TECH: HL7) 881-3 ABO + Rh group [Type] in Serum or Plasma from Blood product unit N O+ January 24, 2025 9:32:00 PM UTC (TECH: HL7) 57518-1 Lot number of Blood product unit N [id number] January 24, 2025 9:32:00 PM UTC (TECH: HL7) 930-8 Blood product reservation [Date and time] N [id number] January 24, 2025 9:32:00 PM UTC (TECH: HL7) 57966-1 Lot number of Blood product unit N [id number] January 24, 2025 9:32:00 PM UTC (TECH: HL7) 38037-7 Lot number of Blood product unit N Red Blood Cells January 24, 2025 9:32:00 PM UTC (TECH: lif) 1322-7 Transfusion volume N 350 M 2024 9:32:00 PM UTC (TECH: MSH) 39915-3 Specimen expiration date of Blood N [id number] January 24, 2025 9:32:00 PM UTC (TECH: HL7) ORDER 900: BASIC METABOLIC P QUINN (LOINC: 06379-7) ORDER DATE: January 24, 2025 8:46:00 PM UTC Specimen Source: Serum/Plasm a Specimen Type: Acellular blo od (serum or plasma) specimen PERFORMING LAB: [address] [id number] Result Comment: Final Result Date: January 25, 2025 11:13:00 AM UTC (TECH: LT) LOINC TEST FLAG RESULT REFERENCE RANGE UPDA JOHNATHAN BY 2951-2 Sodium [Moles/volume] in Serum or Plasma L 134 mmol/L 136 mmol/L - 145 mmol/L January 25, 2025 11:13:00 AM UTC (TECH: LT) 2823-3 Potassium [Moles/volume] in Serum or Plasma N 4.4 mmol/L 3.5 mmol/L - 5.1 mmol/L January 25, 2025 11:13:00 AM UT (TECH: LT) 5-0 Chloride [Moles/volume] in Serum or Plasma N 99 mmol/L 98 mmol/L - 107 mmol/L January 25, 2025 11:13:00 AM UT (TECH: LT) 2027-9 Carbon dioxide, total [Moles/volume] in Serum or Plasma N 28 mmol/L 21 mmol/L - 32 mmol/L January 25, 2025 11:13:00 AM UT (TECH: LT) 62179-0 Anion gap 3 in Serum or Plasma N 7.0 January 25, 2025 11:13:00 AM UT (TECH: LT) 2345-7 Glucose [Mass/volume] in Serum or Plasma H 156 mg/dL 70 mg/dL - 110 mg/dL January 25, 2025 11:13:00 AM UT (TECH: LT) 3094-0 Urea nitrogen [Mass/volume] in Serum or Plasma H 66 mg/dL 7 mg/dL - 18 mg/dL January 25, 2025 11:13:00 AM UT (TECH: LT) 2160-0 Creatinine [Mass/volume] in Serum or Plasma H 2.5 mg/dL 0.6 mg/dL - 1.0 mg/dL January 25, 2025 11:13:00 AM UT (TECH: LT) 3097-3 Urea nitrogen/Creatinin e [Mass Ratio] in Serum or Plasma H 26.4 9 - 21 January 25, 2025 11:13:00 AM UT (TECH: LT) 34954-9 Glomerular filtration rate/1.73 sq M.predicted by Creatinine-based formula (MDRD) L 21 mL/min >60 January 25, 2025 11:13:00 AM UT (TECH: LT) 88011-4 Calcium [Mass/volume] in Serum or Plasma N 9.8 mg/dL 8.5 mg/dL - 10.1 mg/dL January 25, 2025 11:13:00 AM [facility] (TECH: LT) ORDER 1400: CBC AUTO NO DIFF HEMOGRAM (LOINC: 44624-9) ORDER DATE: January 25, 2025 4:47:00 PM UTC Specimen Source: Whole Blood Specimen Type: Whole blood s ample PERFORMING LAB: [address] [id number] Result Comment: Final Result Date: January 25, 2025 5:19:00 PM UTC (TECH: MRB) LOINC TEST FLAG RESULT REFERENCE RANGE UPDA JOHNATHAN BY 6690-2 Leukocytes [#/volume] in Blood by Automated count L 4.3 10^3/uL 4.5 10^3/uL - 11.5 10^3/uL January 25, 2025 5:19:00 PM UTC (TECH: MRB) 789-8 Erythrocytes [#/volume] in Blood by Automated count L 2.93 10^6/uL 4.25 10^6/uL - 5.57 10^6/uL January 25, 2025 5:19:00 PM UTC (TECH: MRB) 718-7 Hemoglobin [Mass/volume] in Blood LL 8.0 g/dL 12.0 g/dL - 15.7 g/dL January 25, 2025 5:19:00 PM UTC (TECH: MRB) 79937-2 Hematocrit [Volume Fraction] of Blood L 27.8 % 36.0 % - 47.0 % January 25, 2025 5:19:00 PM UTC (TECH: MRB) 787-2 Erythrocyte mean corpuscular volume [Entitic volume] by Automated count N 94.9 fl 80 fl - 95 fl January 25, 2025 5:19:00 PM UTC (TECH: MRB) 46041-9 Erythrocyte mean corpuscular hemoglobin [Entitic mass] in Blood from Fetus by Automated count N 27.3 pg 27.0 pg - 34.0 pg January 25, 2025 5:19:00 PM UTC (TECH: MRB) 61266-5 Erythrocyte mean corpuscular hemoglobin concentration [Mass/volume] in Blood from Fetus by Automated count L 28.8 g/dL 32.0 g/dL - 36.0 g/dL January 25, 2025 5:19:00 PM UTC (TECH: MRB) 36231-1 Platelets [#/volume] in Blood N 184 10^3/uL 150 10^3/uL - 450 10^3/uL January 25, 2025 5:19:00 PM UTC (TECH: MRB) 47252-1 Erythrocyte distribution width [Ratio] H 28.8 % 12.3 % - 15.1 % January 25, 2025 5:19:00 PM UTC (TECH: MRB) 43663-3 Platelet mean volume [Entitic volume] in Blood by Automated count N 9.4 fl 7.4 fl - 10.4 fl January 25, 2025 5:19:00 PM UTC (TECH: MRB) ORDER 1500: PT PROTHROMBIN T LEONOR W INR (LOINC: 46396-4) ORDER DATE: January 25, 2025 4:58:00 PM UTC Specimen Source: Plasma Specimen Type: Plasma specim en PERFORMING LAB: [address] [id number] Result Comment: Final Result Date: January 25, 2025 6:01:00 PM UTC (TECH: LT) LOINC TEST FLAG [place] [address]-7 INR in Platelet poor plasma or blood by Coagulation assay H 13.3 seconds 9.1 seconds - 12.0 seconds January 25, 2025 6:01:00 PM UTC (TECH: LT) 6301-6 INR in Platelet poor plasma by Coagulation assay H 1.24 0.9 - 1.1 January 25, 2025 6:01:00 PM UTC (TECH: LT) ORDER 1600: CBC AUTO NO DIFF HEMOGRAM (LOINC: 37095-6) ORDER DATE: January 25, 2025 8:25:00 PM UTC Specimen Source: Whole Blood Specimen Type: Whole blood s ample PERFORMING LAB: [address] [id number] Result Comment: Final Result Date: January 26, 2025 12:24:00 PM UTC (TECH: LT) LOINC TEST FLAG RESULT REFERENCE RANGE UPDA JOHNATHAN BY 6690-2 Leukocytes [#/volume ] in Blood by Automated count N 5.6 10^3/uL 4.5 10^3/uL - 11.5 10^3/uL January 26, 2025 12:24:00 PM UTC (TECH: LT) 789-8 Erythrocytes [#/volu me] in Blood by Automated count L 2.87 10^6/uL 4.25 10^6/uL - 5.57 10^6/uL January 26, 2025 12:24:00 PM UTC (TECH: LT) 718-7 Hemoglobin [Mass/volume] in Blood LL 8.0 g/dL 12.0 g/dL - 15.7 g/dL January 26, 2025 12:24:00 PM UTC (TECH: LT) 48100-6 Hematocrit [Volume Fraction] of Blood L 27.2 % 36.0 % - 47.0 % January 26, 2025 12:24:00 PM UTC (TECH: LT) 787-2 Erythrocyte mean corpuscular volume [Entitic volume] by Automated count N 94.8 fl 80 fl - 95 fl January 26, 2025 12:24:00 PM UTC (TECH: LT) 79406-6 Erythrocyte mean corpuscular hemoglobin [Entitic mass] in Blood from Fetus by Automated count N 27.9 pg 27.0 pg - 34.0 pg January 26, 2025 12:24:00 PM UTC (TECH: LT) 45940-1 Erythrocyte mean corpuscular hemoglobin concentration [Mass/volume] in Blood from Fetus by Automated count L 29.4 g/dL 32.0 g/dL - 36.0 g/dL January 26, 2025 12:24:00 PM UTC (TECH: LT) 03658-9 Platelets [#/volume] in Blood N 184 10^3/uL 150 10^3/uL - 450 10^3/uL January 26, 2025 12:24:00 PM UTC (TECH: LT) 44064-3 Erythrocyte distribution width [Ratio] H 27.5 % 12.3 % - 15.1 % January 26, 2025 12:24:00 PM UTC (TECH: LT) 42850-2 Platelet mean volume [Entitic volume] in Blood by Automated count N 9.7 fl 7.4 fl - 10.4 fl January 26, 2025 12:24:00 PM UTC (TECH: LT) LABORATORY NARRATIVE RESULTS Information is not available RADIOLOGY RESULTS Information is not available PATHOLOGY NARRATIVE RESULTS Information is not available MICROBIOLOGY RESULTS No Micro Labs/Results Exist for Patient BLOOD ADMIN RESULTS Information is not available TREATMENT PLAN DISCHARGE MEDICATIONS Status RXNORM Medication Dose Route Frequency Dates Comments U pdated By Continued 948031 calcitriol (ROCALTROL) 0.6 MCG ORAL ONCE DAILY Prescr ibed: January 26, 2025 2:59:4 8 PM UTC [id number] on January 26, 2025 2:59:48 PM UT Continued 958424 insulin glargine (Lantus) 100 UNIT/ML SOPN 10 UNT SUBCUTANEOUS AT BEDTIME Prescr ibed: January 26, 2025 2:59:4 8 PM UTC [id number] on January 26, 2025 2:59:48 PM UTC Continued warfarin (COUMADIN) 2 MG ONCE DAILY Prescr ibed: January 26, 2025 2:59:4 8 PM UTC Pt reports this medication is on hold at this time. [id number] on January 26, 2025 2:59:48 PM UTC Continued 0071307 Percocet Oral Tablet 10-325 MG 10 MG ORAL EVERY SIX HOURS NEEDED Prescr ibed: January 26, 2025 2:59:4 8 PM UTC [id number] on January 26, 2025 2:59:48 PM UTC Continued 223691 bumetanide (BUMEX) 2 MG ORAL TWICE A DAY Prescr ibed: January 26, 2025 2:59:4 8 PM UTC [id number] on January 26, 2025 2:59:48 PM UTC Continued 731797 ACETAMINOPHEN 650 MG ORAL EVERY SIX HOURS NEEDED Prescr ibed: January 26, 2025 2:59:4 8 PM UTC PAIN 1-3 [id number] on January 26, 2025 2:59:48 PM UTC Continued *PATIENT INFORMATION 1 EA SEE COMMENTS NEEDED Prescr ibed: January 26, 2025 4:31:1 6 PM UTC PATIENT INFORMATION DO NOT STOP TAKING MEDICATON(S ) WITHOUT TAlKING TO YOUR DOCTOR [id number] on January 26, 2025 4:31:16 PM UTC Continued 514465 Lovenox Injection Solution Prefilled Syringe 80 MG/0.8ML 80 MG SUBCUTANEOUS TWICE A DAY Prescr ibed: January 26, 2025 4:31:1 6 PM UTC continue until seen by coumadin clinic [id number] on January 26, 2025 4:31:16 PM UTC Continued 484752 Lactobacillus Extra Strength Oral Capsule 1 CAP ORAL ONCE DAILY Prescr ibed: January 26, 2025 2:59:4 8 PM UTC [id number] on January 26, 2025 2:59:48 PM UTC Continued 4796663 bacitracin zinc 500 UNIT/GM 1 EZEQUIEL ENTERAL NEEDED Prescr ibed: January 26, 2025 2:59:4 8 PM UTC [id number] on January 26, 2025 2:59:48 PM UT Continued 957176 Levothyroxine Sodium Oral Tablet 25 MCG 25 MCG ORAL ONCE DAILY Prescr ibed: January 26, 2025 2:59:4 8 PM UT [id number] on January 26, 2025 2:59:48 PM UT Continued 357171 metoprolol succinate 50MG TB24 100 MG ORAL TWICE A DAY Prescr ibed: January 26, 2025 2:59:4 8 PM UT [id number] on January 26, 2025 2:59:48 PM UT Continued 389902 Aldactone 50 mg tab 50 MG ORAL TWICE A DAY Prescr ibed: January 26, 2025 2:59:4 8 PM UT [id number] on January 26, 2025 2:59:48 PM UT Continued 880940 DULOXETINE HCL 60 MG ORAL AT BEDTIME Prescr ibed: January 26, 2025 2:59:4 8 PM UT [id number] on January 26, 2025 2:59:48 PM UT Continued 618557 ondansetron (ZOFRAN) 4 MG ORAL NEEDED Prescr ibed: January 26, 2025 2:59:4 8 PM UT [id number] on January 26, 2025 2:59:48 PM UT Continued 9042279 Venofer 100 mg iron/5 mL soln 0 INTRAVENOUS ONCE EVERY TWO WEEKS Prescr ibed: January 26, 2025 2:59:4 8 PM UT Pt reports she gets 3 doses every 3 weeks. [id number] on January 26, 2025 2:59:48 PM UT Continued 247642 Uloric Oral Tablet 40 MG 40 MG ORAL ONCE DAILY Prescr ibed: January 26, 2025 2:59:4 8 PM UT [id number] on January 26, 2025 2:59:48 PM UT Continued 848281 aspirin 81 mg TbEC 81 MG ORAL ONCE DAILY Prescr ibed: January 26, 2025 2:59:4 8 PM UT [id number] on January 26, 2025 2:59:48 PM UT Continued 601334 Potassium Chloride ER Oral Capsule Extended Release 10 MEQ 20 MEQ ORAL TWICE A DAY Prescr ibed: January 26, 2025 2:59:4 8 PM UT [id number] on January 26, 2025 2:59:48 PM UTC Continued Humalog KwikPen Insulin 0 SUBCUTANEOUS THREE TIMES A DAY NEEDED Prescr ibed: January 26, 2025 2:59:4 8 PM UTC [id number] on January 26, 2025 2:59:48 PM UT Continued 3411322 Soliqua Subcutaneous Solution Pen-injector 100-33 UNT-MCG/ML 60 UNT SUBCUTANEOUS ONCE DAILY Prescr ibed: January 26, 2025 2:59:4 8 PM UTC [id number] on January 26, 2025 2:59:48 PM [facility] PATIENT OPEN ORDERS Code System Description Frequency Occurrences Priority [place] [address] [facility] Specimen type ONE TIME 0 Routine January 25, 2025 9:12:00 PM UT ELLA JACKSON MD [id number] on January 25, 2025 9:13:00 PM [facility] SCHEDULED PROCEDURES Code System Description Status Scheduled Date Upd ated By Patient scheduled procedure information is not available. HOSPITAL COURSE HOSPITAL COURSE Note Title Discharge Summary Date Of Service January 26, 2025 4:21:0 7 PM UT Created By [id number] on January 26, 2025 4:21:07 PM UT Signed By KATELIN on January 26, 2025 4:41:22 PM [facility] 59 y/o female was admitted t o [facility] for blood trans fusions prior to her colonoscopy on 01/25/25. She received 2 units PRBCs which took her from HGB 7.2 to 8. She successfully underwent her colonoscopy and EGD. The morning of discharge her HGB was again 8. Patient was seen the morning of discharge and is agreeable that she is safe for discharge.She is tolerating a soft diet and we discussed lovenox and coumadin together upon discharge until INR therapeutic/seen by coumadin clinic. MEDICATIONS HOME MEDICATIONS Status RXNORM ILC Medication Dose Route Frequency Dates Comments Reported By Updated By Active 020035 34213 88109 0 Levothyroxin e Sodium Oral Tablet 25 MCG 25.0 MCG ORAL DAILY Last Dose: May 16, 2021 4:39:0 0 PM UT [id number] on January 24, 2025 8:38:44 PM [facility] Active FreeT extMe d warfarin (COUMADIN) 2.0 MG DAILY Last Dose: 2024 1:00:0 0 PM UT Pt reports this medicatio n is on hold at this time. [id number] on January 26, 2025 2:58:56 PM UT Active 905096 28875 16467 0 Potassium Chloride ER Oral Capsule Extended Release 10 MEQ 20.0 MEQ ORAL BID Last Dose: January 24, 2025 1:00:0 0 PM UTC [id number] on January 25, 2025 4:56:59 PM UT Active 5653303 29364 64035 0 Percocet Oral Tablet 10-325 MG 10.0 MG ORAL Q6HPRN Last Dose: May 16, 2021 4:39:0 0 PM UTC [id number] on January 26, 2025 2:59:04 PM UT Active 439898 07753 64289 5 insulin glargine (Lantus) 100 UNIT/ML SOPN 10.0 UNT SUBCUT ANEOUS BEDTIME Last Dose: January 24, 2025 2:00:0 0 AM UT [id number] on January 26, 2025 2:04:37 PM UT Active 7840619 17809 89257 6 dextrose 50% SYRINGE (25 GM) SOLN 50.0 ML INTRAV ENOUS BOLUS Last Dose: May 15, 2021 8:38:0 0 PM UT [id number] on January 24, 2025 8:39:34 PM UT Active 3216867 03299 49271 5 Venofer 100 mg iron/5 mL soln 0.0 INTRAV ENOUS Q2WK Last Dose: Pt reports she gets 3 doses every 3 weeks. [id number] on January 26, 2025 2:58:49 PM UTC Active FreeT extMe d [facility] 0.0 QAM Last Dose: [id number] on January 24, 2025 8:39:36 PM UT Active 08543 03117 6 Lactobacillu s Extra Strength Oral Capsule 1.0 CAP ORAL DAILY Last Dose: [id number] on January 24, 2025 8:39:33 PM UTC Active FreeT extMe d Humalog KwikPen Insulin 0.0 SUBCUT ANEOUS TIDPRN Last Dose: [id number] on January 26, 2025 2:58:38 PM UT Active 8728060 05728 08037 0 bacitracin zinc 500 UNIT/GM 1.0 EZEQUIEL TOPICA L PRN Last Dose: [id number] on January 26, 2025 2:58:28 PM UTC Active 156792 50944 67801 0 aspirin 81 mg TbEC 81.0 MG ORAL DAILY Last Dose: [id number] on January 24, 2025 8:39:33 PM UT Active 165239 25384 20807 1 Aldactone 50 mg tab 50.0 MG ORAL BID Last Dose: [id number] on January 24, 2025 8:39:33 PM [facility] Active 228421 28316 35254 0 Uloric Oral Tablet 40 MG 40.0 MG ORAL DAILY Last Dose: January 23, 2025 10:00: 00 PM UT PATIENT [id number] on January 25, 2025 4:57:14 PM [facility] Active 927697 94402 30008 1 DULOXETINE HCL 60.0 MG ORAL BEDTIME Last Dose: January 24, 2025 3:00:0 0 AM UT PATIENT [id number] on January 25, 2025 2:26:59 PM [facility] Active 881455 32962 40384 1 metoprolol succinate 50MG TB24 100.0 MG ORAL BID Last Dose: PATIENT [id number] on January 25, 2025 2:33:42 PM [facility] Active 595854 47779 82843 4 ondansetron (ZOFRAN) 4.0 MG ORAL PRN Last Dose: PATIENT [id number] on January 25, 2025 2:34:38 PM [facility] Active 914531 80520 04771 1 bumetanide (BUMEX) 2.0 MG ORAL BID Last Dose: PATIENT [id number] on January 25, 2025 2:45:41 PM [facility] Active 914347 22182 83994 3 calcitriol (ROCALTROL) 0.6 MCG ORAL DAILY Last Dose: PATIENT [id number] on January 25, 2025 2:46:52 PM [facility] Active 908783 49143 54227 0 Dexilant Oral Capsule Delayed Release 60 MG 60.0 DAILY Last Dose: PATIENT [id number] on January 25, 2025 4:57:44 PM [facility] Active 2926796 15132 56255 5 Soliqua Subcutaneous Solution Pen-injector 100-33 UNT-MCG/ML 60.0 UNT SUBCUT ANEOUS DAILY Last Dose: PATIENT [id number] on January 26, 2025 2:04:16 PM [facility] DISCHARGE MEDICATIONS Status RXNORM ILC Medication Dose Route Frequency Dates Comments Physician Updated By Yvette goyal [id number] 4000 713 calcitriol (ROCALTROL) 0.6 MCG ORAL ONCE DAILY Prescr ibed: January 26, 2025 2:59:4 8 PM UTC ZENY Latham MD [id number] on January 26, 2025 2:59:48 PM UTC Continue d 924038 0936 8221 905 insulin glargine (Lantus) 100 UNIT/ML SOPN 10.0 UNT SUBCUT ANEOUS AT BEDTIME Prescr ibed: January 26, 2025 2:59:4 8 PM UTC ZENY Latham MD [id number] on January 26, 2025 2:59:48 PM UTC Continue d Free Text Med warfarin (COUMADIN) 2.0 MG ONCE DAILY Prescr ibed: January 26, 2025 2:59:4 8 PM UTC Pt reports this medicatio n is on hold at this time. ZENY Latham MD [id number] on January 26, 2025 2:59:48 PM UTC Continue d 1347477 5658 1062 970 Percocet Oral Tablet 10-325 MG 10.0 MG ORAL EVERY SIX HOURS NEEDED Prescr ibed: January 26, 2025 2:59:4 8 PM UTC ZENY Latham MD [id number] on January 26, 2025 2:59:48 PM UTC Continue d 388318 5647 9012 001 bumetanide (BUMEX) 2.0 MG ORAL TWICE A DAY Prescr ibed: January 26, 2025 2:59:4 8 PM UTC ZENY Latham MD [id number] on January 26, 2025 2:59:48 PM UTC Continue d 973686 6915 4677 361 ACETAMINOPH EN 650.0 MG ORAL EVERY SIX HOURS NEEDED Prescr ibed: January 26, 2025 2:59:4 8 PM UTC PAIN 1-3 ZENY Latham MD [id number] on January 26, 2025 2:59:48 PM UTC Continue d XXXX XXX0 063 *PATIENT INFORMATION 1.0 EA SEE COMMEN TS NEEDED Prescr ibed: January 26, 2025 4:31:1 6 PM UTC PATIEN T INFORMATI ON DO NOT STOP TAKING MEDICATON (S) WITHOUT TAlKING TO YOUR DOCTOR ZENY Latham MD [id number] on January 26, 2025 4:31:16 PM UTC Continue d 452401 7352 5062 280 Lovenox Injection Solution Prefilled Syringe 80 MG/0.8ML 80.0 MG SUBCUT ANEOUS TWICE A DAY Prescr ibed: January 26, 2025 4:31:1 6 PM UTC continue until seen by coumadin clinic ZENY Latham MD [id number] on January 26, 2025 4:31:16 PM UTC Continue d 392229 8647 7008 676 Lactobacill us Extra Strength Oral Capsule 1.0 CAP ORAL ONCE DAILY Prescr ibed: January 26, 2025 2:59:4 8 PM UT ZENY Latham MD [id number] on January 26, 2025 2:59:48 PM UTC Continue d 7426251 6448 3010 730 bacitracin zinc 500 UNIT/GM 1.0 EZEQUIEL ENTERA L NEEDED Prescr ibed: January 26, 2025 2:59:4 8 PM UT ZENY Latham MD [id number] on January 26, 2025 2:59:48 PM UTC Continue d 272862 4633 1518 010 Levothyroxi ne Sodium Oral Tablet 25 MCG 25.0 MCG ORAL ONCE DAILY Prescr ibed: January 26, 2025 2:59:4 8 PM UT ZENY Latham MD [id number] on January 26, 2025 2:59:48 PM UTC Continue d 801749 7795 7040 211 metoprolol succinate 50MG TB24 100.0 MG ORAL TWICE A DAY Prescr ibed: January 26, 2025 2:59:4 8 PM UT ZENY Latham MD [id number] on January 26, 2025 2:59:48 PM UTC Continue d 380393 9874 5104 131 Aldactone 50 mg tab 50.0 MG ORAL TWICE A DAY Prescr ibed: January 26, 2025 2:59:4 8 PM UT ZENY Latham MD [id number] on January 26, 2025 2:59:48 PM UTC Continue d 438307 9500 4068 311 DULOXETINE HCL 60.0 MG ORAL AT BEDTIME Prescr ibed: January 26, 2025 2:59:4 8 PM UT ZENY Latham MD [id number] on January 26, 2025 2:59:48 PM UTC Continue d 235311 0050 6024 064 ondansetron (ZOFRAN) 4.0 MG ORAL NEEDED Prescr ibed: January 26, 2025 2:59:4 8 PM UT ZENY Latham MD [id number] on January 26, 2025 2:59:48 PM UTC Continue d [id number] 7924 0053 425 Venofer 100 mg iron/5 mL soln 0.0 INTRAV ENOUS ONCE EVERY TWO WEEKS Prescr ibed: January 26, 2025 2:59:4 8 PM UT Pt reports she gets 3 doses every 3 weeks. ZENY Latham MD [id number] on January 26, 2025 2:59:48 PM UTC Continue d [id number] 4519 4091 830 Uloric Oral Tablet 40 MG 40.0 MG ORAL ONCE DAILY Prescr ibed: January 26, 2025 2:59:4 8 PM UT ZENY [id number] on January 26, 2025 2:59:48 PM UTC Continue d [id number] 1231 0022 490 aspirin 81 mg TbEC 81.0 MG ORAL ONCE DAILY Prescr ibed: January 26, 2025 2:59:4 8 PM UT ZENY Latham MD [id number] on January 26, 2025 2:59:48 PM UTC Continue d [id number] 9314 6086 210 Potassium Chloride ER Oral Capsule Extended Release 10 MEQ 20.0 MEQ ORAL TWICE A DAY Prescr ibed: January 26, 2025 2:59:4 8 PM UT ZENY Latham MD [id number] on January 26, 2025 2:59:48 PM UTC Continue d Free Text Med Humalog KwikPen Insulin 0.0 SUBCUT ANEOUS THREE TIMES A DAY NEEDED Prescr ibed: January 26, 2025 2:59:4 8 PM UT ZENY Latham MD [id number] on January 26, 2025 2:59:48 PM UTC Continue d [id number] 105 Soliqua Subcutaneou s Solution Pen-injecto r 100-33 UNT-MCG/ML 60.0 UNT SUBCUT ANEOUS ONCE DAILY Prescr ibed: January 26, 2025 2:59:4 8 PM UT ZENY [id number] on January 26, 2025 2:59:48 PM UT INPATIENT MEDICATIONS Status RXNORM NDC Medication Dose Route Frequency Rat e Quantity Dates Comments Physician Updated By Zully inued [id number] [phone] lactated ringers (LR) SOLN 1000. 0 ML INTRAV ENOUS ONE TIME ADMINISTRA TION (UNSCHEDUL ED) 25.0 ML/HR Start: January 24, 2025 12:18: 00 PM UTC End: January 24, 2025 6:43:5 4 PM UTC LYNDON Latham CRNA [id number] on January 24, 2025 6:43:00 PM UTC Discont inued [id number] 6498 3026 977 DIPRIVAN 500 MG/50ML EMUL 50.0 ML INTRAV ENOUS ONE TIME ONLY Start: January 24, 2025 7:16:0 0 PM UTC End: January 24, 2025 7:16:0 0 PM UTC ELLA JACKSON MD INTERF ED on January 24, 2025 7:15:00 PM UTC Discont inued [id number] 4040 7014 601 temazepam (RESTORIL) 15 MG CAPS 15.0 MG ORAL AT BEDTIME Start: January 25, 2025 2:00:0 0 AM UTC End: January 26, 2025 4:31:1 6 PM UTC SINDHU Macias MD [id number] on January 27, 2025 5:25:00 AM UTC Discont inued Free Text Med insulin glargine (Lantus) 100 UNIT/ML SOPN 80.0 UNT SUBCUT ANEOUS ONCE DAILY Start: January 25, 2025 2:00:0 0 PM UTC End: January 25, 2025 2:00:0 0 PM UTC SINDHU Macias MD [id number] on January 24, 2025 8:55:00 PM UTC Discont inued 717521 3140 6140 530 nebivolol (BYSTOLIC) 5 MG TABS 5.0 MG ORAL ONCE DAILY Start: January 25, 2025 2:00:0 0 PM UTC End: January 25, 2025 5:15:1 7 PM UTC SINDHU Macias MD [id number] on January 25, 2025 5:15:00 PM UTC Discont inued [id number] 3463 9044 420 levothyroxi ne (SYNTHROID) 25 MCG TABS 25.0 MCG ORAL ONCE DAILY Start: January 26, 2025 12:00: 00 PM UTC End: January 26, 2025 5:07:0 0 PM UTC SINDHU Macias MD [id number] on January 27, 2025 5:25:00 AM UTC Discont inued Free Text Med allopurinol 300 mg tab 300.0 MG ORAL ONCE DAILY Start: January 25, 2025 2:00:0 0 PM UTC End: January 25, 2025 2:00:0 0 PM UTC SINDHU Macias MD [id number] on January 24, 2025 8:56:00 PM UTC Discont inued Free Text Med Celexa 40 mg tab 40.0 MG ORAL ONCE DAILY Start: January 25, 2025 2:00:0 0 PM UTC End: January 25, 2025 2:00:0 0 PM UTC SINDHU Macias MD [id number] on January 24, 2025 8:56:00 PM UTC Discont inued 818608 2189 7073 601 pantoprazol e (PROTONIX) 40 MG TBEC 40.0 MG ORAL ONCE DAILY Start: January 25, 2025 2:00:0 0 PM UTC End: January 26, 2025 4:31:1 6 PM UTC SINDHU Macias MD [id number] on January 27, 2025 5:25:00 AM UTC Discont inued Free Text Med Cartia XT Oral Capsule Extended Release 24 Hour 120 MG 120.0 MG ORAL ONCE DAILY Start: January 25, 2025 2:00:0 0 PM UTC End: January 25, 2025 2:00:0 0 PM UTC SINDHU Macias MD [id number] on January 24, 2025 8:57:00 PM UTC Discont inued [id number] 6262 8004 902 sodium chloride (NS) 0.9 % SOLN 250.0 ML INTRAV ENOUS NEEDED 25.0 ML/HR Start: January 24, 2025 8:32:0 0 PM UTC End: January 26, 2025 4:31:1 6 PM UTC SINDHU Macias MD [id number] on January 27, 2025 5:25:00 AM UTC Discont inued 361773 7746 3060 400 hydrALAZINE (APRESOLINE ) 20 MG/ML SOLN 20.0 MG INTRAV ENOUS EVERY FOUR HOURS NEEDED Start: January 24, 2025 8:42:0 0 PM UTC End: January 26, 2025 4:31:1 6 PM UTC SINDHU Macias MD [id number] on January 27, 2025 5:25:00 AM UTC Discont inued [id number] 2166 9233 934 LABETALOL 5 MG/ML SOLN 10.0 MG INTRAV ENOUS EVERY TWO HOURS NEEDED Start: January 24, 2025 8:42:0 0 PM UTC End: January 26, 2025 4:31:1 6 PM UTC SINDHU Macias MD [id number] on January 27, 2025 5:25:00 AM UTC Discont inued 217150 0610 4677 361 ACETAMINOPH EN 325 MG TABS 650.0 MG ORAL EVERY SIX HOURS NEEDED Start: January 24, 2025 8:42:0 0 PM UTC End: January 26, 2025 5:07:0 0 PM UTC SINDHU Macias MD [id number] on January 27, 2025 5:25:00 AM UTC Discont inued 1291815 8043 9475 503 ondansetron (ZOFRAN) 4 MG/2ML SOLN 4.0 MG INTRAV ENOUS EVERY EIGHT HOURS NEEDED Start: January 24, 2025 8:42:0 0 PM UTC End: January 26, 2025 4:31:1 6 PM UTC SINDHU Macias MD [id number] on January 27, 2025 5:25:00 AM UTC Discont inued 603863 8984 6024 064 ondansetron (ZOFRAN) 4 MG TBDP 4.0 MG SUBLIN GUAL EVERY EIGHT HOURS NEEDED Start: January 24, 2025 8:42:0 0 PM UTC End: January 26, 2025 4:31:1 6 PM UTC SINDHU Macias MD [id number] on January 27, 2025 5:25:00 AM UTC Discont inued 174154 2200 8222 033 LANTUS 100 UNIT/ML SOLN 80.0 UNT SUBCUT ANEOUS ONCE DAILY Start: January 25, 2025 2:00:0 0 PM UTC End: January 26, 2025 4:31:1 6 PM UTC SINDHU Macias MD [id number] on January 27, 2025 5:25:00 AM UTC Discont inued 093183 4204 4091 801 allopurinol (ZYLOPRIM) 100 MG TABS 300.0 MG ORAL ONCE DAILY Start: January 25, 2025 2:00:0 0 PM UTC End: January 26, 2025 1:07:2 0 PM UTC SINDHU Macias MD [id number] on January 26, 2025 1:07:00 PM UTC Discont inued 799845 5159 4608 561 citalopram (CELEXA) 20 MG TABS 40.0 MG ORAL ONCE DAILY Start: January 25, 2025 2:00:0 0 PM UTC End: January 25, 2025 5:15:1 7 PM UTC SINDHU Macias MD [id number] on January 25, 2025 5:15:00 PM UTC Discont inued 255221 7114 7051 501 DILTIAZEM HCL ER COATED BEADS 120 MG CP24 120.0 MG ORAL ONCE DAILY Start: January 25, 2025 2:00:0 0 PM UTC End: January 26, 2025 4:31:1 6 PM UTC SINDHU Macias MD [id number] on January 27, 2025 5:25:00 AM UTC Discont inued 7936878 9208 4530 661 diphenhydrA MINE (BENADRYL) 25 MG CAPS 25.0 MG ORAL ONE TIME ADMINISTRA TION (UNSCHEDUL ED) Start: January 24, 2025 10:30: 00 PM UTC End: January 24, 2025 10:43: 00 PM UTC SINDHU Macias MD [id number] on January 24, 2025 10:43:00 PM UTC Discont inued 122496 9032 4775 000 lactated ringers (LR) SOLN 1000. 0 ML INTRAV ENOUS CONT 25.0 ML/HR Start: January 25, 2025 9:00:0 0 PM UTC End: January 25, 2025 11:55: 27 PM UTC VANCE MONICA ZINC FURNACE CHARGER [id number] on January 25, 2025 11:55:00 PM UTC Discont inued [id number] 0433 9909 332 fentaNYL (SUBLIMAZE) 100 MCG/2ML SOLN 25.0 MCG INTRAV ENOUS EVERY 5 MINUTES NEEDED (PACU) Start: January 25, 2025 9:00:0 0 PM UTC End: January 26, 2025 4:31:1 6 PM UTC VANCE MONICA ZINC FURNACE CHARGER [id number] on January 27, 2025 5:25:00 AM UTC Discont inued [id number] 9499 9475 503 ondansetron (ZOFRAN) 4 MG/2ML SOLN 4.0 MG INTRAV ENOUS EVERY 30 MINUTES NEEDED Start: January 25, 2025 9:00:0 0 PM UTC End: January 26, 2025 4:31:1 6 PM UTC VANCE MONICA MEADE [id number] on January 27, 2025 5:25:00 AM UTC Discont inued [id number] 6930 9025 001 bumetanide (BUMEX) 1 MG TABS 2.0 MG ORAL TWICE A DAY Start: January 26, 2025 2:00:0 0 AM UTC End: January 26, 2025 5:07:0 0 PM UTC ZENY Latham MD [id number] on January 27, 2025 5:25:00 AM UTC Discont inued 620098 9020 6024 064 ondansetron (ZOFRAN) 4 MG TBDP 4.0 MG ORAL NEEDED Start: January 25, 2025 4:56:0 0 PM UTC End: January 26, 2025 5:07:0 0 PM UTC ZENY Latham MD [id number] on January 27, 2025 5:25:00 AM UTC Discont inued Free Text Med Uloric Oral Tablet 40 MG 40.0 MG ORAL ONCE DAILY Start: January 26, 2025 2:00:0 0 PM UTC End: January 26, 2025 2:00:0 0 PM UTC ZENY Latham MD [id number] on January 25, 2025 5:09:00 PM UTC Discont inued [id number] 8311 7065 311 potassium chloride ER 10 MEQ CPCR 20.0 MEQ ORAL TWICE A DAY Start: January 26, 2025 2:00:0 0 AM UTC End: January 26, 2025 5:07:0 0 PM UTC ZENY Latham MD [id number] on January 27, 2025 5:25:00 AM UTC Discont inued 910378 9283 4000 713 calcitriol (ROCALTROL) 0.25 MCG CAPS 0.6 MCG ORAL ONCE DAILY Start: January 26, 2025 2:00:0 0 PM UTC End: January 26, 2025 2:00:0 0 PM UTC ZENY Latham MD [id number] on January 25, 2025 5:24:00 PM UTC Discont inued 705713 8393 7040 211 metoprolol succinate 50MG TB24 50 MG TB24 100.0 MG ORAL TWICE A DAY Start: January 26, 2025 2:00:0 0 AM UTC End: January 26, 2025 2:00:0 0 AM UTC ZENY Latham MD [id number] on January 25, 2025 5:07:00 PM UTC Discont inued 409355 3576 4068 311 DULOXETINE HCL 30 MG CPEP 60.0 MG ORAL AT BEDTIME Start: January 26, 2025 2:00:0 0 AM UTC End: January 26, 2025 5:07:0 0 PM UTC ZENY Latham MD [id number] on January 27, 2025 5:25:00 AM UTC Discont inued 571302 3775 4026 601 metoprolol tartrate(LO PRESSOR) 50 MG TABS 100.0 MG ORAL TWICE A DAY Start: January 26, 2025 2:00:0 0 AM UTC End: January 26, 2025 4:31:1 6 PM UTC ZENY Latham MD [id number] on January 27, 2025 5:25:00 AM UT Discont inued XXXX XXX0 004 PATIENTS OWN MEDICATION 1 DOSE MISC 1.0 DOS ORAL ONCE DAILY Start: January 26, 2025 2:00:0 0 PM UTC End: January 26, 2025 4:31:1 6 PM UTC ZENY Latham MD [id number] on January 27, 2025 5:25:00 AM UTC Discont inued 552922 6673 4000 713 calcitriol (ROCALTROL) 0.25 MCG CAPS 0.5 MCG ORAL ONCE DAILY Start: January 26, 2025 2:00:0 0 PM UTC End: January 26, 2025 4:31:1 6 PM UT ZENY Latham MD [id number] on January 27, 2025 5:25:00 AM UTC Discont inued Free Text Med Percocet Oral Tablet 10-325 MG 10.0 MG ORAL EVERY SIX HOURS NEEDED Start: January 26, 2025 1:46:0 0 AM UTC End: January 26, 2025 1:49:2 8 AM UTC RICHIE Duggan PA-C [id number] on January 26, 2025 1:49:00 AM UTC Discont inued 1418249 9022 6051 223 PERCOCET 5-325 MG TABS 2.0 TAB ORAL EVERY SIX HOURS NEEDED Start: January 26, 2025 1:49:0 0 AM UTC End: January 26, 2025 4:31:1 6 PM UTC RICHIE Duggan PA-C [id number] on January 27, 2025 5:25:00 AM UTC Discont inued 792112 1926 4098 801 allopurinol (ZYLOPRIM) 100 MG TABS 100.0 MG ORAL ONCE DAILY Start: January 26, 2025 2:00:0 0 PM UTC End: January 26, 2025 4:31:1 6 PM UTC SINDHU Macias MD [id number] on January 27, 2025 5:25:00 AM UTC Discont inued XXXX [id number] [id number] *PATIENT INFORMATION MISC 1.0 EA SEE COMMEN TS NEEDED Start: January 26, 2025 3:00:0 0 PM UTC End: January 26, 2025 5:07:0 0 PM UTC ZENY Latham MD [id number] on January 27, 2025 5:25:00 AM UTC Discont inued 4832227 4871 9427 701 LIDOCAINE HCL 2 % SOLN 20.0 ML ONE TIME ONLY 0.833 ML/HR Start: January 25, 2025 6:40:0 0 PM UTC End: January 26, 2025 5:07:0 0 PM UTC SINDHU Macias MD [id number] on January 26, 2025 6:40:00 PM UTC Discont inued 1335034 8851 9469 930 PROPOFOL 200 MG/20ML EMUL 80.0 ML INTRAV ENOUS ONE TIME ONLY 3.333 ML/HR Start: January 25, 2025 6:40:0 0 PM UTC End: January 26, 2025 5:07:0 0 PM UTC SINDHU Macias MD [id number] on January 26, 2025 6:40:00 PM UTC SOCIAL HISTORY SOCIAL HISTORY SNOMED-CT Social History Element Description Effective Dates Offered Cessation Comment UpdatedBy [id number] Smoking Status Unknown If Ever Smoked SOCIAL HISTORY - Gender Sex: Female SOCIAL HISTORY - Status : status i nformation is not available Intention in Next Year: intention information is not available SOCIAL HISTORY - Sexual Behavior Sexual Orientation Gender Identity SNOMED-CT Description SNO MED -CT Description Activity Level No of Partners Partner Type UpdatedBy Information is not available VITAL SIGNS PATIENT VITAL SIGNS This section displays the mo st recent value for each vital sign as of January 29, 2025 12:23:45 PM UT Loinc Code Vital Sign Activity Date Result Updated By 8302-2 Body height January 26, 2025 4:30:52 PM UTC 162.56 cm (64.0 in) [id number] on January 26, 2025 4:30:[place] [address]-7 Body mass index (BMI ) [Ratio] January 26, 2025 4:30:52 PM UTC 31.257 kg/m2 [id number] on January 26, 2025 4:30:52 PM UTC 3140-1 Body Surface Area Derived From Formula January 26, 2025 4:30:52 PM UTC 1.8796 m2 [id number] on January 26, 2025 4:30:52 PM UTC 67053-4 Body weight Measured January 26 4:30:52 PM UTC 82.6 kg (182.0 lb) [id number] on January 26, 2025 4:30:52 PM UTC 8867-4 Heart rate January 26, 2025 9:04:00 AM UTC 106 /min [id number] on January 26, 2025 9:46:58 AM UTC 8462-4 Diastolic blood pressure January 26, 2025 9:04:00 AM UTC 61.0 mm[Hg] [id number] on January 26, 2025 9:46:58 AM UTC 74372-2 Oxygen saturation in Arterial blood by Pulse oximetry January 26, 2025 9:04:00 AM UTC 93.0 % [id number] on January 26, 2025 9:46:58 AM UTC 8506-8 Radial artery Mean blood pressure January 25, 2025 3:30:00 AM UTC 74.0 mm[Hg] [id number] on January 25, 2025 3:33:15 AM UTC 9279-1 Respiratory rate January 26, 2025 9:04:00 AM UTC 18 /min [id number] on January 26, 2025 9:46:58 AM UTC 46155-2 Spirometry panel January 26, 2025 2:51:00 PM UTC 10.0 {score} [id number] on January 26, 2025 2:51:29 PM UTC 8480-6 Systolic blood pressure January 26, 2025 9:04:00 AM UTC 97.0 mm[Hg] [id number] on January 26, 2025 9:46:58 AM UT PEDIATRIC GROWTH CHART - VITAL SIGNS This section displays Head C ircumference Percentile, Weight for Length Percentile and BMI Percentile Loinc Code Pediatric Measure Age (Months) Result Updat ed By No Pediatric Growth Chart Pe rcentile Information Available. PROCEDURES PATIENT PROCEDURES CODE SYSTEM DESCRIPTION STATUS PERFORMED DATE UPD ATED BY [id number] SNOMED-CT COLONOSCOPY cancelled January 24, 2025 5:00:00 AM UT [id number] on January 24, 2025 7:49:16 PM UT [id number] SNOMED-CT ESOPHAGOGASTRODU ODENOSCOPY (EGD) cancelled January 24, 2025 5:00:00 AM UTC [id number] on January 24, 2025 7:49:30 PM UTC [id number] SNOMED-CT ESOPHAGOGASTRODU ODENOSCOPY (EGD) completed January 25, 2025 5:00:00 AM UTC [id number] on January 25, 2025 8:52:05 PM [facility] [id number] SNOMED-CT COLONOSCOPY completed January 25, 2025 5:00:00 AM UTC [id number] on January 25, 2025 9:34:51 PM UT PROCEDURE NOTE Procedure Note information i s not available. HEALTH CONCERNS Problems Concern Status Health Concern problem infor mation not available. Smoking Status Status Years Used Consumed packs p er day Health Concern smoking histo ry information not available. Family History Concern Status Health Concern family histor y information not available. MEDICAL EQUIPMENT MEDICAL EQUIPMENT Device Status Quantity Dates Procedure Comments Updated By No implanted devices [id number] on January 7:18:30 PM UT ENCOUNTERS ENCOUNTER INFORMATION Reason for Visit D50.9 Admission January 24, 2025 5:54:[address] [address] Discharge January 26, 2025 5:07:00 PM UTC DIS CHARGED TO HOME OR SELF CARE ENCOUNTER DIAGNOSES Note Title Discharge Summary Date Of Service January 26, 2025 4:21:0 7 PM UTC Created By KATELIN on January 26, 2025 4:21:07 PM UTC Signed By KATELIN on January 26, 2025 4:41:22 PM UTC Code System Diagnosis Onset Date 26099865 SNOMED-CT Gastrointestinal hemorrhage ABSTRACT DIAGNOSES Code System Diagnosis Updated By Abstract Diagnosis informati on is not available. CARE TEAM Care Cryptologic Technician Operator/Analyst Role WINNIE MANLEY Referring WINNIE MANLEY Admitting WINNIE MANLEY Primary Attending WESTON TOVAR [facility] DISCHARGE INSTRUCTION DISCHARGE INSTRUCTION Encounter [id number] Admit Date January 24, 2025 5:54:0 0 PM UTC Discharge Date January 26, 2025 5:07:0 0 PM UTC PATIENT EDUCATION SUMMARY Patient/Visit Information: Patient Name: CLAUDE TAMAYO Diag: Attending Caregiver: SINDHU Macias MD Discharge Instruction Sheets Provided: * BRBN Stroke && BEFAST Education *[place] Patient Portal *BRBN Social Determinants of Health *BRBN Suicidal Feelings: How to Help Yourself (LPNT) () Gastrointestinal Bleeding, Fykr-st-Uxyo Smoking\Tobacco Cessation - [facility] () () Patient Instructions: Additional Notes for * BRBN Stroke && BEFAST Education Follow up with your primary doctor within one week. 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 Role on Team Status Start Date End Date Update d By VANCE ANDERSON CRNA Healthcare professional normal January 25, 2025 8:29:00 PM UTC January 26, 2025 5:07:00 PM UTC [id number] on January 25, 2025 9:32:49 PM UTC ELLA ROBISON Surgeon normal January 25, 2025 8:32:00 PM UTC January 26, 2025 5:07:00 PM UTC [id number] on January 25, 2025 9:32:49 PM UT SINDHU ROBISON Referring normal January 24, 2025 8:12:22 PM UTC January 26, 2025 5:07:00 PM UTC [id number] on January 25, 2025 9:32:49 PM [facility] SINDHU ROBISON Attending normal January 24, 2025 8:12:22 PM UTC January 26, 2025 5:07:00 PM UTC [id number] on January 25, 2025 9:32:49 PM UTC SINDHU Macias MD PHY Admitting normal January 24, 2025 8:12:22 PM UTC January 26, 2025 5:07:00 PM UTC [id number] on January 25, 2025 9:32:49 PM UTC LA ONTIVEROS MD PCP normal January 24 5:57:16 PM UTC January 26, 2025 5:07:00 PM UTC [id number] on January 25, 2025 9:32:49 PM UTC ELLA JACKSON MD PHY Referring normal January 24, 2025 5:57:15 PM UTC January 24, 2025 8:12:22 PM UTC [id number] on January 25, 2025 9:32:49 PM UTC ELLA JACKSON MD PHY Attending normal January 20, 2025 3:51:03 PM UTC January 24, 2025 8:12:22 PM UTC [id number] on January 25, 2025 9:32:49 PM UTC ELLA JACKSON MD PHY Admitting normal January 20, 2025 3:51:03 PM UTC January 24, 2025 8:12:22 PM UTC [id number] on January 25, 2025 9:32:49 PM UTC
[2025-03-20] MEDS: SODIUM CHLORIDE 0.9% 50ML BAG 50 ML IV (09:14)
[2025-03-20] MEDS: SODIUM CHLORIDE 0.9% 10ML FLUSH SYRINGE 10 ML IV (09:14)
[2025-03-20] MEDS: ferumoxytoL 510 MG in 0.9 % SODIUM CHLORIDE 50 ML 268 MG IV (09:14)
[2025-03-20 09:17] LABS: Basophils % 0.5 % (0.1-2.0); Eosinophils # 0.2 Kmm3 (0.0-0.4); Hematocrit 26.5 % (37.0-47.0); Hemoglobin 7.7 g/dL (12.2-16.2); Lymphocytes # 0.2 K/mm3 (0.7-4.5); Lymphocytes % 2.7 % (10-50); Mean Corpuscular HGB Conc 29.1 g/dL (31.8-35.4); Mean Corpuscular Hemoglobin 27.6 pg (27.0-31.2); Mean Platelet Volume 9.5 fl (7.4-10.4); Monocytes # 0.8 K/mm3 (0.1-1.0); Monocytes % 10.6 % (1.7-9.3); Neutrophils # 6.4 K/mm3 (1.8-7.8); Neutrophils % 83.4 % (37.0-80.0); Nucleated Red Blood Cells # 0 10^3/uL; Nucleated Red Blood Cells % 0 %; Platelet Count 256 K/mm3 (142-424); Red Blood Count 2.79 M/mm3 (4.20-5.40); Red Cell Distribution Width 22.4 % (11.5-17.5); Red Cell Distribution Width-SD 74.9 fL; White Blood Count 7.7 K/mm3 (4.8-10.8)
[2025-03-20 09:27] LABS: MANUAL DIFFERENTIAL MANUAL DIFFERENTIAL (MANUAL DIFF)
[2025-03-20 09:38] LABS: INR 2.97 (0.9-1.1); Prothrombin Time 29.9 seconds (10.1-12.5)
[2025-03-20 10:16] LABS: Lymphocytes % 4 % (10-50); Monocytes % 8 % (2-9); Neutrophils % 88 % (42-76); Platelet Estimate Normal; Total Cells Counted 100
[2025-03-20 10:17] LABS: Anisocytosis 1+; Hypochromasia 2+
[2025-03-20] MEDS: 0.9 % SODIUM CHLORIDE 250 ML 25 ML IV (10:20)
[2025-03-20] MEDS: diphenhydrAMINE 25MG CAPSULE 25 MG PO (10:20)
[2025-03-20] MEDS: ACETAMINOPHEN 325MG TAB 650 MG PO (10:20)
== END 2025-03-20 14:32 | disposition home or self-care (01) ==
LOC: INF 09:05
PROVIDERS: PCP Internal Medicine Adolescent Medicine; Visit Provider Internal Medicine Medical Oncology
DX: D50.9 Iron deficiency anemia, unspecified (principal)
CPT/HCPCS: 36430; 85007; 85025; 85610; 86850; 96365; J1642; P9016; Q0138

== ENCOUNTER 2025-03-27 08:32 | Outpatient (CLI) | payer MEDICARE, SELFPAY ==
--- OUTSIDE RECORDS SUMMARY | 2025-03-27 08:35 | XMS_ITS | Continuity of Care Document ---
Author Organization [facility] Phone Care Team Providers Care Payroll Director Name Role Phone LAKEISHA MCKENZIE Primary Attending Unavailable LAKEISHA MCKENZIE Admitting Unavailable WESTON TVOAR Primary Care ALLERGIES AND ADVERSE REACTIONS ALLERGIES AND ADVERSE REACTIONS Code System Allergy Substance Adverse Reaction Date Reaction (Severity) Comment Status Reported By Updated By 7052 RXNorm Morphine Adverse reaction to substance Not Specified active [id number] on March 26, 2025 3:14:27 PM [place] 2670 RXNorm Codeine Adverse reaction to substance Not Specified active [id number] on March 26, 2025 3:14:[place] [address] RXNorm Zoloft Adverse reaction to substance Not Specified active [id number] on March 26, 2025 3:14:29 PM UT 4493 RXNorm FLUoxetine Adverse reaction to substance Not Specified active [id number] on March 26, 2025 3:14:29 PM UTC Allopurinol Adverse reaction to substance Not Specified active [id number] on March 26, 2025 3:14:29 PM UT RESULTS Patient: RONI Latham Date of : March 17 3 0 LABORATORY RESULTS ORDER 100: CBC AUTO W DIFF ( LOINC: 04457-1) ORDER DATE: March 26, 2025 3:17:00 PM UT Specimen Source: EDTA Specimen Type: Blood specime n with EDTA PERFORMING LAB: [facility] [address] [facility] [id number] Result Comment: Final Result Date: March 26, 2025 4:36:00 PM UT (TECH: RAQUEL) LOINC TEST FLAG RESULT REFERENCE RANGE UPDA JOHNATHAN BY 6690-2 Leukocytes [#/volume] in Blood by Automated count N 6.4 K/ul 4.0 K/ul - 10.5 K/ul March 26, 2025 4:14:00 PM UTC (TECH: JCG) 789-8 Erythrocytes [#/volume] in Blood by Automated count L 2.8 M/mm3 4.2 M/mm3 - 6.4 M/mm3 March 26, 2025 4:14:00 PM UTC (TECH: JCG) 718-7 Hemoglobin [Mass/volume] in Blood L 8.2 gm/dl 12.5 gm/dl - 16.0 gm/dl March 26, 2025 4:14:00 PM UTC (TECH: JCG) 49426-2 Hematocrit [Volume Fraction] of Blood L 27.9 % 37.0 % - 47.0 % March 26, 2025 4:14:00 PM UTC (TECH: JCG) 787-2 Erythrocyte mean corpuscular volume [Entitic volume] by Automated count N 98.6 fl 78 fl - 100 fl March 26, 2025 4:14:00 PM UTC (TECH: JCG) 785-6 Erythrocyte mean corpuscular hemoglobin [Entitic mass] by Automated count N 29.0 pg 27 pg - 31 pg March 26, 2025 4:14:00 PM UTC (TECH: JCG) 786-4 Erythrocyte mean corpuscular hemoglobin concentration [Mass/volume] by Automated count L 29.4 g/dl 32 g/dl - 36 g/dl March 26, 2025 4:14:00 PM UTC (TECH: JCG) 81241-2 Erythrocyte distribution width [Ratio] H 23.0 % 11.5 % - 14.0 % March 26, 2025 4:14:00 PM UTC (TECH: JCG) 777-3 Platelets [#/volume] in Blood by Automated count N 211 K/ul 150 K/ul - 450 K/ul March 26, 2025 4:14:00 PM UTC (TECH: JCG) 47941-2 Platelet mean volume [Entitic volume] in Blood by Automated count H 9.6 fl 6 fl - 9.5 fl March 26, 2025 4:14:00 PM UTC (TECH: JCG) 33271-0 Neutrophils/100 leukocytes in Blood H 81.7 % 43 % - 65 % March 26, 2025 4:14:00 PM UTC (TECH: JCG) 736-9 Lymphocytes/100 leukocytes in Blood by Automated count L 4.4 % 20.5 % - 45.5 % March 26, 2025 4:14:00 PM UTC (TECH: JCG) 5905-5 Monocytes/100 leukocytes in Blood by Automated count N 10.1 % 5.5 % - 11.7 % March 26, 2025 4:14:00 PM UTC (TECH: JCG) 713-8 Eosinophils/100 leukocytes in Blood by Automated count N 2.7 % 0.9 % - 2.9 % March 26, 2025 4:14:00 PM UTC (TECH: JCG) 706-2 Basophils/100 leukocytes in Blood by Automated count N 0.5 % 0.2 % - 1.0 % March 26, 2025 4:14:00 PM UTC (TECH: JCG) 98349-8 Immature granulocytes/100 leukocytes in Blood by Automated count N 0.6 % 0.0 % - 0.8 % March 26, 2025 4:14:00 PM UTC (TECH: JCG) 97238-8 Nucleated cells [#/volume] in Blood N 0.0 % March 26, 2025 4:14:00 PM UTC (TECH: JCG) 44158-4 Neutrophils [#/volume] in Blood H 5.2 K/uL 2.2 K/uL - 4.8 K/uL March 26, 2025 4:14:00 PM UTC (TECH: JCG) 731-0 Lymphocytes [#/volume] in Blood by Automated count L 0.3 CELL/MCL 1.3 CELL/MCL - 2.9 CELL/MCL March 26, 2025 4:14:00 PM UTC (TECH: JCG) 742-7 Monocytes [#/volume] in Blood by Automated count N 0.6 CELL/MCL 0.3 CELL/MCL - 0.8 CELL/MCL March 26, 2025 4:14:00 PM UTC (TECH: JCG) 711-2 Eosinophils [#/volume] in Blood by Automated count N 0.2 CELL/MCL 0 CELL/MCL - 0.2 CELL/MCL March 26, 2025 4:14:00 PM UTC (TECH: JCG) 704-7 Basophils [#/volume] in Blood by Automated count N 0.0 CELL/MCL 0.0 CELL/MCL - 1.0 CELL/MCL March 26, 2025 4:14:00 PM UTC (TECH: JCG) 37079-9 Immature granulocytes [#/volume] in Blood N 0.04 K/ul March 26, 2025 4:14:00 PM UTC (TECH: JCG) 12492-4 Nucleated cells [#/volume] in Blood N 0.00 K/uL March 26, 2025 4:14:00 PM UTC (TECH: JCG) 14628-6 Manual Differential panel - Blood N NO March 26, 2025 4:14:00 PM UTC (TECH: JCG) 778-1 Platelets [#/volume] in Blood by Manual count N ADEQUATE ADEQUATE March 26, 2025 4:36:00 PM UTC (TECH: JCG) 9317-9 Platelet adequacy [Presence] in Blood by Light microscopy N NORMAL NORMAL March 26, 2025 4:36:00 PM UTC (TECH: JCG) 82448-8 Erythrocytes [Morphology] in Blood by Automated count ABNORMAL NORMAL March 26, 2025 4:36:00 PM UTC (TECH: JCG) 702-1 Anisocytosis [Presence] in Blood by Light microscopy N 2+ NONE SEEN March 26, 2025 4:36:00 PM UTC (TECH: JCG) 59710-7 Polychromasia [Presence] in Blood by Light microscopy N SLIGHT NONE SEEN March 26, 2025 4:36:00 PM UTC (TECH: JCG) 774-0 Ovalocytes [Presence] in Blood by Light microscopy N SLIGHT NONE SEEN March 26, 2025 4:36:00 PM UTC (TECH: JCG) ORDER 200: COMP METABOLIC PA JUAN JOSE (LOINC: 71974-6) ORDER DATE: March 26, 2025 3:17:00 PM UTC Specimen Source: PLASMA Specimen Type: Plasma specim en PERFORMING LAB: [address] [id number] Result Comment: Final Result Date: March 26, 2025 4:29:00 PM UTC (TECH: TGD) LOINC TEST FLAG RESULT REFERENCE RANGE UPDA JOHNATHAN BY 2951-2 Sodium [Moles/volume ] in Serum or Plasma L 135 mmol/L 136 mmol/L - 145 mmol/L March 26, 2025 4:17:00 PM UTC (TECH: TGD) 2823-3 Potassium [Moles/volume] in Serum or Plasma N 4.3 mmol/L 3.6 mmol/L - 5.0 mmol/L March 26, 2025 4:17:00 PM UTC (TECH: TGD) 2075-0 Chloride [Moles/volu me] in Serum or Plasma L 97 mmol/L 98 mmol/L - 107 mmol/L March 26, 2025 4:17:00 PM UTC (TECH: TGD) 8-9 Carbon dioxide, tota l [Moles/volume] in Serum or Plasma N 30.0 mmol/L 21.0 mmol/L - 32.0 mmol/L March 26, 2025 4:17:00 PM UTC (TECH: TGD) 86366-8 Anion gap in Blood N 12.3 M 2024 4:17:00 PM UTC (TECH: TGD) 2345-7 Glucose [Mass/volume ] in Serum or Plasma H 135 mg/dl 70 mg/dl - 120 mg/dl March 26, 2025 4:17:00 PM UTC (TECH: TGD) 6299-2 Urea nitrogen [Mass/volume] in Blood H 67 mg/dL 7 mg/dL - 18 mg/dL March 26, 2025 4:17:00 PM UTC (TECH: TGD) 89433-9 Creatinine [Moles/volume] in Blood H 2.3 mg/dL 0.6 mg/dL - 1.3 mg/dL March 26, 2025 4:17:00 PM UTC (TECH: TGD) 00524-6 Glomerular filtratio n rate/1.73 sq M.predicted by Creatinine-based formula (MDRD) L 23 mlpermin 60 mlpermin March 26, 2025 4:17:00 PM UTC (TECH: TGD) 24806-6 Osmolality of Serum or Plasma by calculated by sum of electrolytes H 303 mosm/kg 275 mosm/kg - 301 mosm/kg March 26, 2025 4:17:00 PM UTC (TECH: TGD) 5105-2 Protein [Mass/volume ] in Serum or Plasma N 7.2 g/dl 6.4 g/dl - 8.2 g/dl March 26, 2025 4:29:00 PM UTC (TECH: TGD) 1751-7 Albumin [Mass/volume ] in Serum or Plasma N 3.6 g/dl 3.4 g/dl - 5.0 g/dl March 26, 2025 4:29:00 PM UTC (TECH: TGD) 2336-6 Globulin [Mass/volum e] in Serum N 3.6 March 26, 2025 4:29:00 PM UTC (TECH: TGD) 1759-0 Albumin/Globulin [Ma ss Ratio] in Serum or Plasma N 1.0 0.7 - 2 March 26, 2025 4:29:00 PM UTC (TECH: TGD) 73850-1 Calcium [Mass/volume ] in Serum or Plasma N 9.8 mg/dl 8.5 mg/dl - 10.5 mg/dl March 26, 2025 4:17:00 PM UT (TECH: TGD) 1975-2 Bilirubin.total [Mass/volume] in Serum or Plasma N 0.90 mg/dL 0.10 mg/dL - 1.00 mg/dL March 26, 2025 4:29:00 PM UT (TECH: TGD) 1920-8 Aspartate aminotransferase [Enzymatic activity/volume] in Serum or Plasma N 29 U/L 0 U/L - 37 U/L March 26, 2025 4:29:00 PM UT (TECH: TGD) 1742-6 Alanine aminotransferase [Enzymatic activity/volume] in Serum or Plasma N 28 U/L 0 U/L - 65 U/L March 26, 2025 4:29:00 PM UT (TECH: TGD) 6768-6 Alkaline phosphatase [Enzymatic activity/volume] in Serum or Plasma N 112 U/L 46 U/L - 116 U/L March 26, 2025 4:29:00 PM UT (TECH: TGD) ORDER 300: LIPASE (LOINC: 30 40-3) ORDER DATE: March 26, 2025 3:17:00 PM UT Specimen Source: PLASMA Specimen Type: Plasma specim en PERFORMING LAB: [address] [id number] Result Comment: Final Result Date: March 26, 2025 4:29:00 PM UT (TECH: TGD) LOINC TEST FLAG RESULT REFERENCE RANGE UPDA JOHNATHAN BY 5730-3 Lipase [Enzymatic activity/volume] in Serum or Plasma H 78 U/L 16 U/L - 77 U/L March 26, 2025 4:29:00 PM UTC (TECH: TGD) ORDER 400: URINALYSIS REFLEX MICROSCOPIC (LOINC: 97307-8) ORDER DATE: March 26, 2025 3:17:00 PM UTC Specimen Source: URINE Specimen Type: Urine specime n PERFORMING LAB: [address] [id number] Result Comment: Final Result Date: March 26, 2025 5:43:00 PM UTC (TECH: AAC) LOINC TEST FLAG RESULT REFERENCE RANGE UPDA JOHNATHAN BY 5778-6 Color of Urine N LT YELLOW YELLOW March 5:43:00 PM UTC (TECH: AAC) 5767-9 Appearance of Urine N CLEAR CLEAR March 26, 2025 5:43:00 PM UTC (TECH: AAC) 5792-7 Glucose [Mass/volume] in Urine by Test strip N norm NORMAL March 26, 2025 5:43:00 PM UTC (TECH: AAC) 69902-1 Bilirubin.total [Mass/volume] in Urine by Automated test strip N NEGATIVE NEGATIVE March 26, 2025 5:43:00 PM UTC (TECH: AAC) 5797-6 Ketones [Mass/volume] in Urine by Test strip N NEGATIVE NEGATIVE March 26, 2025 5:43:00 PM UTC (TECH: AAC) 2965-2 Specific gravity of Urine L 1.015 1.016 - 1.022 March 26, 2025 5:43:00 PM UTC (TECH: AAC) 21309-4 Erythrocytes [#/volume] in Urine by Automated test strip N NEGATIVE NEGATIVE March 26, 2025 5:43:00 PM UTC (TECH: AAC) 64706-7 pH of Urine by Automated test strip N 6 5 - 9 March 26, 2025 5:43:00 PM UTC (TECH: AAC) 96110-2 Protein [Presence] in Urine by Test strip N TNP NEGATIVE March 26, 2025 5:43:00 PM UTC (TECH: AAC) 78295-1 Urobilinogen [Mass/volume] in Urine by Automated test strip N norm NORMAL March 26, 2025 5:43:00 PM UTC (TECH: AAC) 23573-6 Nitrate [Presence] in Urine N NEGATIVE NEGATIVE March 26, 2025 5:43:00 PM UTC (TECH: AAC) 76663-3 Leukocytes [#/volume] in Urine by Test strip N NEGATIVE NEGATIVE March 26, 2025 5:43:00 PM UTC (TECH: AAC) 27431-1 Urinalysis dipstick W Reflex Culture panel - Urine N NO March 26, 2025 5:43:00 PM UTC (TECH: AAC) ORDER 500: TYPE/SCREEN (LOIN C: 95673-2) ORDER DATE: March 26, 2025 3:17:00 PM UTC Specimen Source: Specimen Type: PERFORMING LAB: [address] [id number] Result Comment: Final Result Date: March 26, 2025 3:17:00 PM UTC (TECH: gfa) LOINC TEST FLAG [place]ULT [place] [address]-7 History of Procedure N Completed March 26, 2025 3:17:00 PM UTC (TECH: HL7) 68899-1 ABO and Rh group panel - Blood N O POSITIVE March 26, 2025 3:17:00 PM UTC (TECH: HL7) 890-4 Blood group antibody screen [Presence] in Serum or Plasma N NEGATIVE March 26, 2025 3:17:00 PM UTC (TECH: HL7) 28281-4 PROMIS item bank - cognitive function - version 2.0 N Completed March 26, 2025 3:17:00 PM UTC (TECH: gfa) ORDER 600: NT-PRO BNP (LOINC : 87806-8) ORDER DATE: March 26, 2025 3:17:00 PM UTC Specimen Source: PLASMA Specimen Type: Plasma specim en PERFORMING LAB: [address] [id number] Result Comment: Final Result Date: March 26, 2025 4:29:00 PM UTC (TECH: TGD) LOINC TEST FLAG RESULT [place] [address]-9 Natriuretic peptide B [Mass or Moles/volume] in Serum or Plasma H 3875.00 PG/ML 0.00 PG/ML - 125.00 PG/ML March 26, 2025 4:29:00 PM UTC (TECH: TGD) ORDER 700: TROPONIN I QUANT HIGH SENS. (LOINC: 43191-2) ORDER DATE: March 26, 2025 3:17:00 PM UTC Specimen Source: PLASMA Specimen Type: Plasma specim en PERFORMING LAB: [address] [id number] Result Comment: Final Result Date: March 26, 2025 4:23:00 PM UT (TECH: TGD) LOINC TEST FLAG [place]ULT [place] [address]-5 Troponin I.cardiac [Mass/volume] in Serum or Plasma N 10 ng/L 0 ng/L - 51 ng/L March 26, 2025 4:2 3:00 PM UTC (TECH: TGD) LABORATORY NARRATIVE RESULTS Information is not available RADIOLOGY RESULTS ORDER 900: CHEST PORTABLE (L OINC: 25919-1) ORDER DATE: March 26, 2025 3:18:00 PM UT PERFORMING LAB: [address] [id number] Final Result Date: March 26 3:25:[address] [address] Name: CLAUDE TAMAYO Exam Date: 03/26/2025 : 1965 Age 60 years Gender: F Physician: LAKEISHA MCKENZIE Facility: [facility] Facility HSV: Outpatient Exam: CHEST PORTABLE ONE VIEW RADIOGRAPH OF THE CHEST CLINICAL INDICATION: Malaise. COMPARISON: XR Chest 07/09/2021. FINDINGS: Chest port catheter with distal tip projecting over the SVC. 2-lead AICD. Status post valvuloplasty. Median sternotomy wires. The cardiomediastinal silhouette is markedly enlarged. Mild interstitial prominence. No pleural effusion or pneumothorax. Osseous structures are intact. IMPRESSION: 1. Severe cardiomegaly. 2. Mild interstitial prominence, possibly vascular congestion or mild edema. Electronically signed by: Junito Cisneros MD 03/26/2025 11:47 AM EDT Dictated By: Junito Cisneros Transcribed By: Transcribed On: 03/26/2025 11:25 AM Electronically signed by: Junito Cisneros 03/26/2025 Thank you for referring [facility]. Legally authenticated by MEHNAZ EVERETT 2025-03-26 11:25:44 PATHOLOGY NARRATIVE RESULTS Information is not available MICROBIOLOGY RESULTS No Micro Labs/Results Exist for Patient BLOOD ADMIN RESULTS Information is not available MEDICATIONS HOME MEDICATIONS Status RXNORM NDC Medication Dose Route Frequency Dates Comments Reported By Updated By Active 2891649 71029 36385 5 Soliqua 100/33 100 unit-33 mcg/mL Insulin Pen 60.0 UNT SUBCUT ANEOUS QAM Last Dose: [id number] on March 26, 2025 3:38:23 PM UTC Active 9953767 97244 91792 0 Jardiance 10 mg tablet 1.0 TAB ORAL QAM Last Dose: [id number] on March 26, 2025 3:38:24 PM UTC Active 2865375 16945 74070 0 potassium chloride 20 mEq Tablet, ER Particles/Cr ystals 1.0 TAB ORAL BID Last Dose: [id number] on March 26, 2025 3:38:24 PM UTC Active 913313 69749 68963 3 febuxostat 40 mg tablet 1.0 TAB ORAL DAILY Last Dose: [id number] on March 26, 2025 3:38:24 PM UTC Active 642228 25065 76475 0 alprazolam 0.5 mg tablet 1.0 TAB ORAL TID Last Dose: [id number] on March 26, 2025 3:38:24 PM UTC Active 368015 06525 72379 1 amiodarone 200 mg tablet 1.0 TAB ORAL DAILY Last Dose: [id number] on March 26, 2025 3:38:25 PM UTC Active 372958 80448 48886 0 dexlansopraz ole 60 mg capsule,james yed release,biph asic 1.0 CAP ORAL DAILY Last Dose: [id number] on March 26, 2025 3:38:25 PM UTC Active 223728 16620 89461 0 levothyroxin e 25 mcg tablet 1.0 TAB ORAL DAILY Last Dose: [id number] on March 26, 2025 3:38:25 PM UTC Active 035168 51663 38402 0 duloxetine 60 mg capsule,james yed release (e.c.) 1.0 CAP ORAL DAILY Last Dose: [id number] on March 26, 2025 3:38:25 PM [facility] Active 118764 05991 68333 1 calcitriol 0.25 mcg capsule 1.0 CAP ORAL DAILY Last Dose: [id number] on March 26, 2025 3:38:26 PM UT Active 762261 78070 89376 0 metoprolol succinate 100 mg Tablet, Extended Release 24 hr 1.0 TAB ORAL BID Last Dose: [id number] on March 26, 2025 3:38:26 PM UT Active 430920 20608 12667 0 spironolacto ne 50 mg tablet 1.0 TAB ORAL BID Last Dose: [id number] on March 26, 2025 3:38:26 PM [facility] Active 105364 60952 85158 1 bumetanide 2 mg tablet 1.0 TAB ORAL DAILY Last Dose: [id number] on March 26, 2025 3:38:26 PM [facility] Active 136810 42654 93618 1 warfarin 4 mg tablet 0.0 ORAL Last Dose: 1/2 tab MWF 1 tab other days [id number] on March 26, 2025 3:38:26 PM UT Active 1981552 79147 91589 0 Linzess 145 mcg capsule 1.0 CAP ORAL DAILY Last Dose: [id number] on March 26, 2025 3:38:27 PM [facility] DISCHARGE MEDICATIONS Status RXNORM [facility] Medication Dose Route Frequency Dates Comments Physician Updated By No Discharge Medication Info rmation Available INPATIENT MEDICATIONS Status [facility] Medication Dose Route Frequency Rat e Quantity Dates Comments Physician Updated By Zully inued [id number] 7087 8092 355 pantoprazol e (PROTONIX) 40 MG SOLR 40.0 MG INTRAV ENOUS ONE TIME ONLY (SCHEDULED DOSE) Start: March 26, 2025 3:49:0 0 PM [facility] End: March 26, 2025 3:49:0 0 PM [facility] COLOM LAKEISHA INTERFAC ED on March 26, 2025 3:48:00 PM [facility] SOCIAL HISTORY SOCIAL HISTORY SNOMED-CT Social History Element Description Effective Dates Offered Cessation Comment UpdatedBy [id number] Current Tobacco smoking status Never Smoked [id number] on March 26, 2025 3:09:05 PM [facility] SOCIAL HISTORY - Gender Sex: Female SOCIAL [...] value for each vital sign as of March 26, 2025 8:17:02 PM UT Loinc Code Vital Sign Activity Date Result Updated By 8302-2 Body height March 26, 2025 3:07 :52 PM UTC 162.56 cm (64.0 in) [id number] on March 26, 2025 3:07:52 [place] [address]-7 Body mass index (BMI ) [Ratio] March 26, 2025 3:07:52 PM UTC 29.138 kg/m2 [id number] on March 26, 2025 3:07:52 PM UT 3140-1 Body Surface Area Derived From Formula March 26, 2025 3:07:52 PM UTC 1.8244 m2 [id number] on March 26, 2025 3:07:52 PM UT 8310-5 Body temperature March 26, 2025 3:0 6:00 PM UTC 98.3 [degF] CBF4365 on March 26, 2025 3:07:[place] [address]-1 Body weight Measured March 26, 2025 3:07:52 PM UTC 77.0 kg (170.0 lb) [id number] on March 26, 2025 3:07:52 PM UTC 8462-4 Diastolic blood pressure March 26, 2025 6:23:00 PM UTC 54.0 mm[Hg] [id number] on March 26, 2025 6:25:22 PM UTC 8867-4 Heart rate March 26, 2025 7:05 :00 PM UTC 73 /min [id number] on March 26, 2025 7:17:27 [place] [address]-0 Oxygen saturation in Arterial blood by Pulse oximetry March 26, 2025 7:05:00 PM UTC 95.0 % [id number] on March 26, 2025 7:17:27 PM UT 9279-1 Respiratory rate March 26, 2025 7:0 5:00 PM UTC 16 /min BKN0265 on March 26, 2025 7:17:27 PM UT 8480-6 Systolic blood pressure March 26, 2025 6:23:00 PM UTC 96.0 mm[Hg] [id number] on March 26, 2025 6:25:22 PM UT PEDIATRIC GROWTH CHART - VITAL SIGNS This section displays Head C ircumference Percentile, Weight for Length Percentile and BMI Percentile Loinc Code Pediatric Measure Age (Months) Result Updat ed By No Pediatric Growth Chart Pe rcentile Information Available. HEALTH CONCERNS Problems Concern Status Health Concern problem infor mation not available. Smoking Status Status Years Used Consumed packs p er day Health Concern smoking histo ry information not available. Family History Concern Status Health Concern family histor y information not available. ENCOUNTERS ENCOUNTER INFORMATION Reason for Visit SENT BY FOR POS SIBLE GI BLEED Admission March 26, 2025 2:52:[address] [address] Discharge March 26, 2025 7:17:00 PM UTC DISCH ARGED TO HOME OR SELF CARE ENCOUNTER DIAGNOSES Notes information is not sheryl ilable. Code System Diagnosis Onset Date Diagnosis information is not available. ABSTRACT DIAGNOSES Code System Diagnosis Updated By Abstract Diagnosis informati on is not available. 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
[2025-03-27 08:40] VITALS: BMI 32.2
[2025-03-27 08:57] LABS: Basophils % 0.4 % (0.1-2.0); Eosinophils # 0.1 Kmm3 (0.0-0.4); Eosinophils % 1.3 % (0.1-12.0); Hematocrit 27.9 % (37.0-47.0); Hemoglobin 8.2 g/dL (12.2-16.2); Lymphocytes # 0.2 K/mm3 (0.7-4.5); Lymphocytes % 2.5 % (10-50); Mean Corpuscular HGB Conc 29.4 g/dL (31.8-35.4); Mean Corpuscular Hemoglobin 29.2 pg (27.0-31.2); Mean Corpuscular Volume 99.3 fl (81-99); Mean Platelet Volume 9.5 fl (7.4-10.4); Monocytes # 0.7 K/mm3 (0.1-1.0); Monocytes % 8.5 % (1.7-9.3); Neutrophils # 7.2 K/mm3 (1.8-7.8); Neutrophils % 86.6 % (37.0-80.0); Nucleated Red Blood Cells # 0 10^3/uL; Nucleated Red Blood Cells % 0 %; Platelet Count 217 K/mm3 (142-424); Red Blood Count 2.81 M/mm3 (4.20-5.40); Red Cell Distribution Width 22.7 % (11.5-17.5); Red Cell Distribution Width-SD 81.3 fL; White Blood Count 8.3 K/mm3 (4.8-10.8)
[2025-03-27 09:03] LABS: MANUAL DIFFERENTIAL MANUAL DIFFERENTIAL (MANUAL DIFF)
[2025-03-27 09:10] LABS: INR 2.33 (0.9-1.1)
[2025-03-27 09:20] LABS: Lymphocytes % 4 % (10-50); Monocytes % 11 % (2-9); Neutrophils % 85 % (42-76); Total Cells Counted 100
[2025-03-27 09:21] LABS: Anisocytosis 1+; Hypochromasia 1+; Macrocytosis 1+; Ovalocytes 1+; Platelet Estimate Normal
[2025-03-27 09:28] LABS: Alanine Aminotransferase 25 U/L (12-78); Albumin Level 4.1 g/dl (3.5-5.0); Albumin/Globulin Ratio 1.5 (1.1-1.8); Alkaline Phosphatase 126 U/L (38-126); Anion Gap 6.1 mEq/L (5-15); Aspartate Amino Transferase 35 U/L (14-36); Blood Urea Nitrogen 65 mg/dl (7-17); Calcium 9.3 mg/dl (8.4-10.2); Carbon Dioxide 29 mmol/L (22.0-30.0); Chloride 98 mmol/L (98-107); Creatinine Clearance Estimated 36 mL/min (50-200); Estimated Glomerular Filt Rate 23 ml/min (>60); GFR (African American) 27 ML/MIN (>60); Globulin 2.7 g/dL (1.3-3.2); Glucose 217 mg/dl (74-100); Potassium 5.1 mmoL/L (3.5-5.1); Sodium 128 mmol/L (136-145); Total Protein,Serum 6.8 g/dl (6.3-8.2)
--- NOTE | 2025-03-27 09:32 | HMH.PHAINT1 ---
Pharmacy Intervention Comments: PATIENT INR 2.33 THIS AM. RECOMMENDED PATIENT TAKE WARFARIN 4 MG TODAY, THEN RESUME 4 MG ON WED/FRI; 2 MG ON WED/WED/WED/WED/WED. WILL FOLLOW UP IN CLINIC NEXT WEEK.
[2025-03-27] MEDS: SODIUM CHLORIDE 0.9% 10ML FLUSH SYRINGE 10 ML IV (11:00)
[2025-03-27 12:05] LABS: Iron 85 ug/dL (37-170)
[2025-03-27 12:15] LABS: Total Iron Binding Capacity 487 ug/dL (265-497)
[2025-03-27 12:44] LABS: Ferritin 125 ng/ml (11.1-264)
== END 2025-03-27 11:00 | disposition home or self-care (01) ==
LOC: INF 08:33
PROVIDERS: PCP Internal Medicine Adolescent Medicine; Visit Provider Internal Medicine Medical Oncology
DX: D50.9 Iron deficiency anemia, unspecified (principal)
CPT/HCPCS: 36591; 80053; 82728; 83540; 83550; 85007; 85025; 85610; J1642

== ENCOUNTER 2025-03-29 10:16 | Outpatient (CLI) | payer MEDICARE, MEDICAID, SELFPAY ==
--- OUTSIDE RECORDS SUMMARY | 2025-03-29 10:19 | XMS_ITS | Continuity of Care Document ---
Author Organization [facility] Phone Care Team Providers Care Horse Race Timer Name Role Phone LAKEISHA MCKENZIE Primary Attending Unavailable LAKEISHA MCKENZIE Admitting Unavailable WESTON TOVAR Primary Care ALLERGIES AND ADVERSE REACTIONS ALLERGIES AND ADVERSE REACTIONS Code System Allergy Substance Adverse Reaction Date Reaction (Severity) Comment Status Reported By Updated By 7052 RXNorm Morphine Adverse reaction to substance Not Specified active [id number] on March 26, 2025 3:14:27 PM [place] 2670 RXNorm Codeine Adverse reaction to substance Not Specified active [id number] on March 26, 2025 3:14:[place] [address] RXNorm Zoloft Adverse reaction to substance Not Specified active [id number] on March 26, 2025 3:14:29 PM UT 4493 RXNorm FLUoxetine Adverse reaction to substance Not Specified active [id number] on March 26, 2025 3:14:29 PM UTC Allopurinol Adverse reaction to substance Not Specified active [id number] on March 26, 2025 3:14:29 PM UT RESULTS Patient: RONI Latham Date of : March 17 3 0 LABORATORY RESULTS ORDER 100: CBC AUTO W DIFF ( LOINC: 70220-4) ORDER DATE: March 26, 2025 3:17:00 PM UT Specimen Source: EDTA Specimen Type: Blood specime n with EDTA PERFORMING LAB: [facility] [address] [facility] [id number] Result Comment: Final Result Date: March 26, [...] 26, 2025 4:14:00 PM UTC (TECH: JCG) 75269-9 Hematocrit [Volume Fraction] of Blood L 27.9 [...] 26, 2025 4:14:00 PM UTC (TECH: JCG) 75655-8 Erythrocyte distribution width [Ratio] H 23.0 % 11.5 % - 14.0 % March 26, 2025 4:14:00 PM UTC (TECH: JCG) 777-3 Platelets [#/volume] in Blood by Automated count N 211 K/ul 150 K/ul - 450 K/ul March 26, 2025 4:14:00 PM UTC (TECH: JCG) 67526-0 Platelet mean volume [Entitic volume] in Blood by Automated count H 9.6 fl 6 fl - 9.5 fl March 26, 2025 4:14:00 PM UTC (TECH: JCG) 75136-5 Neutrophils/100 leukocytes in Blood H 81.7 % [...] 26, 2025 4:14:00 PM UTC (TECH: JCG) 94700-1 Immature granulocytes/100 leukocytes in Blood by Automated count N 0.6 % 0.0 % - 0.8 % March 26, 2025 4:14:00 PM UTC (TECH: JCG) 45426-9 Nucleated cells [#/volume] in Blood N 0.0 % March 26, 2025 4:14:00 PM UTC (TECH: JCG) 41135-2 Neutrophils [#/volume] in Blood H 5.2 K/uL [...] 26, 2025 4:14:00 PM UTC (TECH: JCG) 41135-3 Immature granulocytes [#/volume] in Blood N 0.04 K/ul March 26, 2025 4:14:00 PM UTC (TECH: JCG) 39736-8 Nucleated cells [#/volume] in Blood N 0.00 K/uL March 26, 2025 4:14:00 PM UTC (TECH: JCG) 15178-0 Manual Differential panel - Blood N NO March 26, 2025 4:14:00 PM UTC (TECH: JCG) 778-1 Platelets [#/volume] in Blood by Manual count N ADEQUATE ADEQUATE March 26, 2025 4:36:00 PM UTC (TECH: JCG) 9317-9 Platelet adequacy [Presence] in Blood by Light microscopy N NORMAL NORMAL March 26, 2025 4:36:00 PM UTC (TECH: JCG) 41267-1 Erythrocytes [Morphology] in Blood by Automated count ABNORMAL NORMAL March 26, 2025 4:36:00 PM UTC (TECH: JCG) 702-1 Anisocytosis [Presence] in Blood by Light microscopy N 2+ NONE SEEN March 26, 2025 4:36:00 PM UTC (TECH: JCG) 72501-8 Polychromasia [Presence] in Blood by Light microscopy N SLIGHT NONE SEEN March 26, 2025 4:36:00 PM UTC (TECH: JCG) 774-0 Ovalocytes [Presence] in Blood by Light microscopy N SLIGHT NONE SEEN March 26, 2025 4:36:00 PM UTC (TECH: JCG) ORDER 200: COMP METABOLIC PA JUAN JOSE (LOINC: 93977-7) ORDER DATE: March 26, 2025 3:17:00 PM UTC Specimen Source: PLASMA Specimen Type: Plasma specim en PERFORMING LAB: [address] [id number] Result Comment: Final Result Date: March 26, [...] 26, 2025 4:17:00 PM UTC (TECH: TGD) 65887-0 Anion gap in Blood N 12.3 M 2024 4:17:00 PM UTC (TECH: TGD) 2345-7 Glucose [Mass/volume ] in Serum or Plasma H 135 mg/dl 70 mg/dl - 120 mg/dl March 26, 2025 4:17:00 PM UTC (TECH: TGD) 6299-2 Urea nitrogen [Mass/volume] in Blood H 67 mg/dL 7 mg/dL - 18 mg/dL March 26, 2025 4:17:00 PM UTC (TECH: TGD) 83970-0 Creatinine [Moles/volume] in Blood H 2.3 mg/dL 0.6 mg/dL - 1.3 mg/dL March 26, 2025 4:17:00 PM UTC (TECH: TGD) 34735-1 Glomerular filtratio n rate/1.73 sq M.predicted by Creatinine-based formula (MDRD) L 23 mlpermin 60 mlpermin March 26, 2025 4:17:00 PM UTC (TECH: TGD) 75655-9 Osmolality of Serum or Plasma by calculated by sum of electrolytes H 303 mosm/kg 275 mosm/kg - 301 mosm/kg March 26, 2025 4:17:00 PM UTC (TECH: TGD) 7835-2 Protein [Mass/volume ] in Serum or Plasma [...] 26, 2025 4:29:00 PM UTC (TECH: TGD) 52668-7 Calcium [Mass/volume ] in Serum or Plasma [...] Specimen Type: Plasma specim en PERFORMING LAB: [address] [id number] Result Comment: Final Result Date: March 26, 2025 4:29:00 PM UT (TECH: TGD) LOINC TEST FLAG RESULT REFERENCE RANGE UPDA JOHNATHAN BY 9490-3 Lipase [Enzymatic activity/volume] in Serum or Plasma H 78 U/L 16 U/L - 77 U/L March 26, 2025 4:29:00 PM UTC (TECH: TGD) ORDER 400: URINALYSIS REFLEX MICROSCOPIC (LOINC: 22246-0) ORDER DATE: March 26, 2025 3:17:00 PM UTC Specimen Source: URINE Specimen Type: Urine specime n PERFORMING LAB: [address] [id number] Result Comment: Final Result Date: March 26, [...] 26, 2025 5:43:00 PM UTC (TECH: AAC) 51150-3 Bilirubin.total [Mass/volume] in Urine by Automated test strip N NEGATIVE NEGATIVE March 26, 2025 5:43:00 PM UTC (TECH: AAC) 5797-6 Ketones [Mass/volume] in Urine by Test strip N NEGATIVE NEGATIVE March 26, 2025 5:43:00 PM UTC (TECH: AAC) 2965-2 Specific gravity of Urine L 1.015 1.016 - 1.022 March 26, 2025 5:43:00 PM UTC (TECH: AAC) 16183-5 Erythrocytes [#/volume] in Urine by Automated test strip N NEGATIVE NEGATIVE March 26, 2025 5:43:00 PM UTC (TECH: AAC) 62674-7 pH of Urine by Automated test strip N 6 5 - 9 March 26, 2025 5:43:00 PM UTC (TECH: AAC) 44725-7 Protein [Presence] in Urine by Test strip N TNP NEGATIVE March 26, 2025 5:43:00 PM UTC (TECH: AAC) 72309-3 Urobilinogen [Mass/volume] in Urine by Automated test strip N norm NORMAL March 26, 2025 5:43:00 PM UTC (TECH: AAC) 49897-6 Nitrate [Presence] in Urine N NEGATIVE NEGATIVE March 26, 2025 5:43:00 PM UTC (TECH: AAC) 92148-9 Leukocytes [#/volume] in Urine by Test strip N NEGATIVE NEGATIVE March 26, 2025 5:43:00 PM UTC (TECH: AAC) 96149-0 Urinalysis dipstick W Reflex Culture panel - Urine N NO March 26, 2025 5:43:00 PM UTC (TECH: AAC) ORDER 500: TYPE/SCREEN (LOIN C: 61336-2) ORDER DATE: March 26, 2025 3:17:00 PM UTC Specimen Source: Specimen Type: PERFORMING LAB: [address] [id number] Result Comment: Final Result Date: March 26, 2025 3:17:00 PM UTC (TECH: gfa) LOINC TEST FLAG [place] [address]-2 History of Procedure N Completed March 26, 2025 3:17:00 PM UTC (TECH: HL7) 55405-0 ABO and Rh group panel - Blood N O POSITIVE March 26, 2025 3:17:00 PM UTC (TECH: HL7) 890-4 Blood group antibody screen [Presence] in Serum or Plasma N NEGATIVE March 26, 2025 3:17:00 PM UTC (TECH: HL7) 91383-7 PROMIS item bank - cognitive function - version 2.0 N Completed March 26, 2025 3:17:00 PM UTC (TECH: gfa) ORDER 600: NT-PRO BNP (LOINC : 80612-0) ORDER DATE: March 26, 2025 3:17:00 PM UTC Specimen Source: PLASMA Specimen Type: Plasma specim en PERFORMING LAB: [address] [id number] Result Comment: Final Result Date: March 26, 2025 4:29:00 PM UTC (TECH: TGD) LOINC TEST FLAG RESULT [place] [address]-0 Natriuretic peptide B [Mass or Moles/volume] in Serum or Plasma H 3875.00 PG/ML 0.00 PG/ML - 125.00 PG/ML March 26, 2025 4:29:00 PM UTC (TECH: TGD) ORDER 700: TROPONIN I QUANT HIGH SENS. (LOINC: 69440-8) ORDER DATE: March 26, 2025 3:17:00 PM UTC Specimen Source: PLASMA Specimen Type: Plasma specim en PERFORMING LAB: [address] [id number] Result Comment: Final Result Date: March 26, 2025 4:23:00 PM UT (TECH: TGD) LOINC TEST FLAG RESULT [place] [address]-0 Troponin I.cardiac [Mass/volume] in Serum or Plasma N 10 ng/L 0 ng/L - 51 ng/L March 26, 2025 4:2 3:00 PM UTC (TECH: TGD) LABORATORY NARRATIVE RESULTS Information is not available RADIOLOGY RESULTS ORDER 900: CHEST PORTABLE (L OINC: 16191-3) ORDER DATE: March 26, 2025 3:18:00 PM UT PERFORMING LAB: [address] [id number] Final Result Date: March 26 3:25:[address] [address] Name: CLAUDE TAMAYO Exam Date: 03/26/2025 : 1965 Age 60 years Gender: F Physician: LAKEIHSA MCKENZIE Facility: [facility] Facility HSV: Outpatient Exam: CHEST PORTABLE [...] Thank you for referring RONI CLAUDE to [facility]. Legally authenticated by MEHNAZ EVERETT 2025-03-26 11:25:44 PATHOLOGY NARRATIVE RESULTS Information is not available MICROBIOLOGY RESULTS No Micro Labs/Results Exist for Patient BLOOD ADMIN RESULTS Information is not available MEDICATIONS HOME MEDICATIONS Status RXNORM NDC Medication Dose Route Frequency Dates Comments Reported By Updated By Active 1411030 34040 66387 5 Soliqua 100/33 100 unit-33 mcg/mL Insulin Pen 60.0 UNT SUBCUT ANEOUS QAM Last Dose: [id number] on March 26, 2025 3:38:23 PM UTC Active 7718344 26902 48040 0 Jardiance 10 mg tablet 1.0 TAB ORAL QAM Last Dose: [id number] on March 26, 2025 3:38:24 PM UTC Active 6014165 42021 99863 0 potassium chloride 20 mEq Tablet, ER Particles/Cr ystals 1.0 TAB ORAL BID Last Dose: [id number] on March 26, 2025 3:38:24 PM UTC Active 785386 81783 39423 3 febuxostat 40 mg tablet 1.0 TAB ORAL DAILY Last Dose: [id number] on March 26, 2025 3:38:24 PM UTC Active 297401 64846 44787 0 alprazolam 0.5 mg tablet 1.0 TAB ORAL TID Last Dose: [id number] on March 26, 2025 3:38:24 PM UTC Active 426763 83022 37165 1 amiodarone 200 mg tablet 1.0 TAB ORAL DAILY Last Dose: [id number] on March 26, 2025 3:38:25 PM UTC Active 430283 58047 29185 0 dexlansopraz ole 60 mg capsule,james yed release,biph asic 1.0 CAP ORAL DAILY Last Dose: [id number] on March 26, 2025 3:38:25 PM UTC Active 625020 44807 11869 0 levothyroxin e 25 mcg tablet 1.0 TAB ORAL DAILY Last Dose: [id number] on March 26, 2025 3:38:25 PM UTC Active 138492 76036 59479 0 duloxetine 60 mg capsule,james yed release (e.c.) 1.0 CAP ORAL DAILY Last Dose: [id number] on March 26, 2025 3:38:25 PM [facility] Active 289643 31158 75586 1 calcitriol 0.25 mcg capsule 1.0 CAP ORAL DAILY Last Dose: [id number] on March 26, 2025 3:38:26 PM UT Active 521071 76986 84535 0 metoprolol succinate 100 mg Tablet, Extended Release 24 hr 1.0 TAB ORAL BID Last Dose: [id number] on March 26, 2025 3:38:26 PM UT Active 145447 89765 60083 0 spironolacto ne 50 mg tablet 1.0 TAB ORAL BID Last Dose: [id number] on March 26, 2025 3:38:26 PM [facility] Active 110663 95496 03628 1 bumetanide 2 mg tablet 1.0 TAB ORAL DAILY Last Dose: [id number] on March 26, 2025 3:38:26 PM [facility] Active 968608 95330 35270 1 warfarin 4 mg tablet 0.0 ORAL Last Dose: 1/2 tab MWF 1 tab other days [id number] on March 26, 2025 3:38:26 PM UT Active 3176431 84848 49900 0 Linzess 145 mcg capsule 1.0 CAP ORAL DAILY Last Dose: [id number] on March 26, 2025 3:38:27 PM [facility] DISCHARGE MEDICATIONS Status RXNORM [facility] Medication Dose Route Frequency Dates Comments Physician Updated By No Discharge Medication Info rmation Available [facility] Medication Dose Route Frequency Rat e Quantity Dates Comments Physician Updated By Zully inued [id number] 6083 8092 355 pantoprazol e (PROTONIX) 40 MG SOLR 40.0 MG INTRAV ENOUS ONE TIME ONLY (SCHEDULED DOSE) Start: March 26, 2025 3:49:0 0 PM [facility] End: March 26, 2025 3:49:0 0 PM [facility] COLOM LAKEISHA INTERFAC ED on March 26, 2025 3:48:00 PM [facility] SOCIAL HISTORY SOCIAL HISTORY SNOMED-CT Social History Element Description Effective Dates Offered Cessation Comment UpdatedBy [id number] Current Tobacco smoking status Never Smoked [id number] on March 26, 2025 3:09:05 PM UTC SOCIAL HISTORY - Gender Sex: Female SOCIAL [...] for each vital sign as of March 28, 2025 7:55:34 AM [place] Loinc Code Vital Sign Activity Date Result Updated By 8302-2 Body height March 26, 2025 3:07 :52 PM UTC 162.56 cm (64.0 in) [id number] on March 26, 2025 3:07:[place] [address]-9 Body mass index (BMI ) [Ratio] March 26, 2025 3:07:52 PM UTC 29.138 kg/m2 [id number] on March 26, 2025 3:07:52 PM UT 3140-1 Body Surface Area Derived From Formula March 26, 2025 3:07:52 PM UTC 1.8244 m2 [id number] on March 26, 2025 3:07:52 PM UT 8310-5 Body temperature March 26, 2025 3:0 6:00 PM UTC 98.3 [degF] [id number] on March 26, 2025 3:07:51 PM UTC 94836-6 Body weight Measured March 26, 2025 3:07:52 PM UTC 77.0 kg (170.0 lb) [id number] on March 26, 2025 3:07:52 PM UTC 8462-4 Diastolic blood pressure March 26, 2025 6:23:00 PM UTC 54.0 mm[Hg] [id number] on March 26, 2025 6:25:22 PM UTC 8867-4 Heart rate March 26, 2025 7:05 :00 PM UTC 73 /min [id number] on March 26, 2025 7:17:[place] [address]-5 Oxygen saturation in Arterial blood by Pulse oximetry March 26, 2025 7:05:00 PM UTC 95.0 % [id number] on March 26, 2025 7:17:27 PM UTC 9279-1 Respiratory rate March 26, 2025 7:0 5:00 PM UTC 16 /min [id number] on March 26, 2025 7:17:27 PM [facility] 8480-6 Systolic blood pressure March 26, 2025 6:23:00 PM [facility] 96.0 mm[Hg] [id number] on March 26, 2025 6:25:22 PM [facility] PEDIATRIC GROWTH CHART - VITAL SIGNS This [...] INFORMATION Reason for Visit SENT BY FOR [facility] GI BLEED Admission March 26, 2025 2:52:[address] [address] Discharge March 26, 2025 7:17:00 PM [facility] DISCH ARGED TO HOME OR SELF CARE ENCOUNTER DIAGNOSES Notes information is not sheryl ilable. Code System Diagnosis Onset Date Diagnosis information is not available. ABSTRACT DIAGNOSES Code System Diagnosis Updated By K92.2 ICD10 GASTROINTESTINAL HEMORRHAGE, UNSPECIFIED [id number] on March 28, 2025 7:52:00 AM [facility] R06.02 ICD10 SHORTNESS OF BREATH [id number] on March 28, 2025 7:52:00 AM [facility] R53.1 ICD10 WEAKNESS [id number] on March 28, 2025 7:52:00 AM [facility] D64.9 ICD10 ANEMIA, UNSPECIFIED [id number] on March 28, 2025 7:52:00 AM [facility] Z88.5 ICD10 ALLERGY STATUS TO NARCOTIC A GENT [id number] on March 28, 2025 7:52:00 AM [facility] Z88.8 ICD10 ALLERGY STATUS T O OTHER DRUGS, MEDICAMENTS AND BIOLOGICAL SUBSTANCES [id number] on March 28, 2025 7:52:00 AM [facility] CARE TEAM Care Horse Race Timer Role LAKEISHA MCKENZIE Primary Attending LAKEISHA MCKENZIE Admitting WESTON TOVAR Primary Care CARE TEAM CARE operating table assembler Role on Team Status Start Date End Date Update d By MAGALY SUAZO Attending normal March 26, 2025 3:20:59 PM UTC March 26, 2025 7:17:00 PM UTC [id number] on March 26, 2025 3:20:59 PM UTC GRACE DRISCOLLLAKEISHA Admitting normal March 26, 2025 3:20:59 PM UTC March 26, 2025 7:17:00 PM UTC [id number] on March 26, 2025 3:20:59 PM UTC LA ONT[place]OS PCP normal March 26, 2025 2:53:13 PM UTC March 26, 2025 7:17:00 PM UTC [id number] on March 26, 2025 3:20:59 PM UTC
[2025-03-29] MEDS: EPOETIN 20,000 UNITS/ML MDV 40000 UNIT SUBCUT (10:29)
[2025-03-29 10:35] VITALS: BP 108/70; PULSE 80; RESP 17; O2SAT 97
== END 2025-03-29 10:47 | disposition home or self-care (01) ==
LOC: INF 10:17
PROVIDERS: PCP Internal Medicine Adolescent Medicine; Visit Provider Internal Medicine Medical Oncology
DX: N18.9 Chronic kidney disease, unspecified (principal); D63.1 Anemia in chronic kidney disease
CPT/HCPCS: 96372; J0885

== ENCOUNTER 2025-04-03 10:01 | Outpatient (CLI) | payer MEDICARE, MEDICAID, SELFPAY ==
[2025-04-03 10:55] LABS: Hemoglobin 7.6 g/dL (12.2-16.2)
[2025-04-03 10:59] LABS: INR 3.35 (0.9-1.1); Prothrombin Time 33.3 seconds (10.1-12.5)
[2025-04-03 11:35] VITALS: BP 119/71; PULSE 81; RESP 16; TEMP 36.7; O2SAT 98
[2025-04-03] MEDS: EPOETIN 20,000 UNITS/ML MDV 40000 UNIT SUBCUT (11:35)
[2025-04-03] MEDS: SODIUM CHLORIDE 0.9% 10ML FLUSH SYRINGE 10 ML IV (11:45)
== END 2025-04-03 11:45 | disposition home or self-care (01) ==
LOC: INF 10:01
PROVIDERS: Internal Medicine Medical Oncology; PCP Internal Medicine Adolescent Medicine; Visit Provider Internal Medicine Adolescent Medicine
DX: N18.4 Chronic kidney disease, stage 4 (severe) (principal); D63.1 Anemia in chronic kidney disease
CPT/HCPCS: 36591; 85014; 85018; 85610; 96372; 99211; G0463; J0885; J1642

== ENCOUNTER 2025-04-05 14:39 | Inpatient (IN) | payer MEDICARE, SELFPAY ==
[2025-04-05 14:46] VITALS: BP 89/58
[2025-04-05 15:00] VITALS: BP 96/59; PULSE 80; RESP 16; TEMP 36.6; O2SAT 92; BMI 31.6
--- NOTE | 2025-04-05 15:13 | P.HP_ITS ---
History of Present Illness *Admission Date: 04/05/25 *Reason for visit:: dyspnea, edema *History of present illness: Ms. Costa is a 60-year-old female with multiple complex comorbidities including mechanical mitral valve, chronic anticoagulation, chronic A-fib, heart failure with a EF of 30%, diabetes, depression. She presented to cardiology clinic for follow-up. Concern for CHF exacerbation and volume overload with decompensation. Medicine was consulted for admission and further management of her decompensation. On arrival to the floor, has edema. Stable on room air. Appears more weak. Labs showing concern for worsening kidney function. She reports 5 days of worsening shortness of breath, swelling in her legs, poor response to diuretics at home. Denies any bloody stools. Chronic anemia noted on her labs. Previously at her baseline level of function prior to starting to feel bad 5 days ago. Denies fevers. [facility] Disclaimer: The information contained in this section may have been updated after the patient was seen, as this information can be updated by other users. 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 current use of anticoagulants with INR goal of 2.5-3.5 Third degree heart block Junctional escape rhythm Current use of detention anticoagulation Afib HFrEF (heart failure with reduced ejection fraction) Partial tear of tendon CHF (NYHA class III, ACC/AHA stage C) Atrial fibrillation, chronic COPD exacerbation CHF exacerbation Anemia Systolic CHF Typical angina Dyspnea Rib fracture Blood transfusion reaction Autoimmune hemolytic anemia Arthritis Hernia Sinus problem Rheumatic heart disease Hypothyroidism Polyarthralgia Pulmonary edema HLD (hyperlipidemia) HTN (hypertension) CAD (coronary artery disease) DM type 2 (diabetes mellitus, type 2) DVT (deep venous thrombosis) Cardiomyopathy Arrhythmia Liver disease Thyroid disease Valvular heart disease Hypertension Hyperlipidemia GERD (gastroesophageal reflux disease) COPD (chronic obstructive pulmonary disease) Class 1 obesity CKD (chronic kidney disease) stage 3, GFR 30-59 ml/min Coronary artery disease Congestive heart failure, NYHA class III NYHA class 3 acute on chronic systolic heart failure Diabetes mellitus Hypertensive heart disease CHF (congestive heart failure) Diastolic heart failure Tricuspid valve regurgitation Surgical History Presence of biventricular AICD History of mitral valve replacement with mechanical valve Mitral valve replaced History of colon resection H/O tubal ligation History of angioplasty History of renal stent History of ureteroscopy History of tubal ligation History of hernia repair History of cardiac catheterization Family History Other Breast cancer COPD (chronic obstructive pulmonary disease) Colon cancer Family history of acute heart failure Family history of hyperlipidemia Family history of hypertension Family history of myocardial infarction Hypertension Stroke Social History Smoking Status: Former smoker tobacco type: cigarettes packs per day: 1 smoking status stop date: 01/09/2006 quit status: quit date established second hand exposure: Yes alcohol intake: never substance use type: denies use current occupational status: retired and disabled Travel in the last 8 weeks?: None adopted: No caregiver/support person: No foster care: No household members: significant other housing: house lives independently: Yes marital status: life partner education level: college service: No fci: No current occupational exposures/hazards: No sexually active: Yes how many partners: 1 are you practicing safe sex: Yes diet: diabetic well-balanced diet: about half the time caffeine: No eating out: rarely or never during the past year weight has: remained stable bhavya/adventist: Orthodoxy special bhavya needs: No agree to transfusion: Yes helmet use: No water heater temp set < 120 deg: Yes working smoke detector in home: Yes fire extinguisher in home: Yes carbon monox detector in home: Yes firearms in home: No do you feel safe at home: Yes victim of physical abuse: No victim of emotional abuse: No victim of sexual abuse: No would you like helpful sources: No Have you lived/traveled outside [place] in past 30 days?: No Contact w/someone who lives/traveled outside [place] past 30 days?: No Exposure to someone with infectious disease in past 14 days?: No Do you have a fever (greater than 100.4 F or 38 C)?: No Have you tested positive for COVID-19?: No Exposed to someone with COVID-19 in past 14 days?: No Do you have a sore throat?: No Do you have a cough?: No Do you have any weakness?: No Do you have any diarrhea?: No Are you experiencing any unusual bleeding?: No Do you have any muscle aches/pain?: No Do you have any abdominal pain?: No Are you experiencing loss of taste or smell?: No Other Medical History Have you received the Flu Vaccine for this season: Yes Have you received the Pneumonia Vaccine: Yes Review of Systems Review of Systems Review of systems (narrative): 14 point review of systems performed, pertinent positives and negatives as per [facility] Meds Home Medications and Allergies Home Medications ?Medication ?Instructions ?Recorded ?Confirmed ?Type aspirin 81 mg tablet,delayed 81 mg PO DAILY 12/01/17 04/05/25 History release (Adult Low Dose Aspirin) oxycodone-acetaminophen 10 mg-325 1 tab PO QID PRN Pain, Moderate 05/23/18 04/05/25 History mg tablet (Percocet) alprazolam 0.5 mg tablet (Xanax) 0.5 mg PO TID PRN Anxiety 11/29/19 04/05/25 History levothyroxine 25 mcg tablet 25 mcg PO DAILY 06/05/21 04/05/25 History insulin glargine 100 60 units SQ DAILY 02/22/22 04/05/25 History unit-lixisenatide 33 mcg/mL subcutaneous pen febuxostat 40 mg tablet 40 mg PO DAILY 02/09/23 04/05/25 History potassium chloride 20 mEq 20 meq PO BID 04/15/23 04/05/25 History tablet,extended release(part/cryst) calcitriol 0.25 mcg capsule 0.25 mcg PO DAILY 10/30/23 04/05/25 History duloxetine 60 mg capsule,delayed 60 mg PO HS 03/06/24 04/05/25 History release empagliflozin 10 mg tablet 10 mg PO DAILY #30 tabs 07/17/24 04/05/25 Rx (Jardiance) spironolactone 50 mg tablet 50 mg PO DAILY 30 days #180 tabs 01/05/25 04/05/25 Rx warfarin 4 mg tablet 2 mg (1/2 x 4 mg) PO DAILY 30 days 01/05/25 04/05/25 Rx #0 tabs insulin glargine 100 unit/mL (3 14 unit SQ HS 01/17/25 04/05/25 History mL) subcutaneous pen (Lantus Solostar U-100 Insulin) amiodarone 200 mg tablet 200 mg PO DAILY #90 tabs 04/02/25 04/05/25 Rx blood-glucose sensor (Dexcom G6 #1 ea 04/05/25 04/05/25 History Sensor device) blood-glucose transmitter (Dexcom #1 ea 04/05/25 04/05/25 History G6 Transmitter device) blood-glucose,barrel and receiver aligner,cont #1 ea 04/05/25 04/05/25 History (Dexcom G6 Front Office Representative) bumetanide 2 mg tablet 2 mg PO BID #60 tabs 04/05/25 04/05/25 Rx dexlansoprazole 60 mg 60 mg PO DAILY 04/05/25 04/05/25 History capsule,biphase delayed release metolazone 2.5 mg tablet 2.5 mg PO DAILY PRN edema 04/05/25 04/05/25 History metoprolol succinate 100 mg 50 mg PO BID 04/05/25 04/05/25 History tablet,extended release 24 hr pen needle, diabetic 32 gauge x #1,200 ea 04/05/25 04/05/25 History New Prescriptions to Start Prescriptions: Allergies Allergy/AdvReac Type Severity Reaction Status Date / Time codeine (CODEINE) Allergy Unknown nausea, Verified 04/05/25 13:19 swelling Corticosteroids Allergy Unknown Unknown Verified 04/05/25 13:19 (Glucocorticoids) allergy (CORTICOSTEROIDS reaction (GLUCOCORTICOIDS)) NSAIDS (Non-Steroidal Allergy Unknown Other Verified 04/05/25 13:19 Anti-Inflamma rosuvastatin (From CRESTOR) Allergy Unknown Unknown Verified 04/05/25 13:19 allergy reaction theophylline (From DAVID-DUR) Allergy Unknown Unknown Verified 04/05/25 13:19 allergy reaction Iodinated Contrast Media AdvReac Severe shuts Verified 04/05/25 13:19 (IODINATED CONTRAST- ORAL kidneys AND IV DYE) down and bleeding buprenorphine (From BUPRENEX) AdvReac Intermediate Nausea Verified 04/05/25 13:19 levofloxacin (From Levaquin) AdvReac Other Verified 04/05/25 13:19 lisinopril AdvReac Cough Verified 04/05/25 13:19 prednisone AdvReac Unknown Verified 04/05/25 13:19 allergy reaction sacubitril (From Entresto) AdvReac Hypotension Verified 04/05/25 13:19 valsartan (From Entresto) AdvReac Hypotension Verified 04/05/25 13:19 Exam Data for Last 24 hours Vital signs and Labs for Last 24 Hours: Temp Pulse Resp BP Pulse Ox O2 Del Method 97.8 F 80 16 96/59 L 92 L Room Air 04/05/25 15:00 04/05/25 15:00 04/05/25 15:00 04/05/25 15:00 04/05/25 15:00 04/05/25 15:00 I & O for Last 24 hours: Intake & Output 04/02/25 04/03/25 04/04/25 04/05/25 23:59 23:59 23:59 23:59 Weight 83.489 kg Constitutional Constitutional: moderate distress, obese, chronically ill appearing and cooperative *Routine HEENT Exam Head: Present normocephalic Eye: Present EOMI and PERRL ENT: Present mucous membranes moist *Routine Neck Exam Neck: Present supple; Absent lymphadenopathy *Routine Respiratory Exam Respiratory: Present CTA bilaterally *Routine Cardiovascular Exam Cardiovascular: Present RRR and murmur Comments: Mechanical click *Routine Abdominal Exam Abdominal: Present soft and normoactive bowel sounds; Absent tenderness *Routine Rectal Exam Rectal:: deferred *Routine Genitalia Exam Genitalia:: deferred *Routine Extremities Exam Extremities: Present edema (2+ to knees); Absent cyanosis or clubbing *Routine Skin Exam Skin: Present warm; Absent rash *Routine Neurological Exam Neurological: Present alert, oriented X3 and moving all extremities; Absent altered mental status Assessment and Plan *Assessment and plan (1) Acute on chronic HFrEF (heart failure with reduced ejection fraction): Status: Acute Category: Medical Code(s): I50.23 - Acute on chronic systolic (congestive) heart failure (2) Iron deficiency anemia: Status: Acute Category: Medical Code(s): D50.9 - Iron deficiency anemia, unspecified (3) Anticoagulation goal of INR 2.5 to 3.5: Status: Acute Category: Medical Code(s): Z51.81 - Encounter for therapeutic drug level monitoring; Z79.01 - custodial (current) use of anticoagulants (4) Presence of biventricular AICD: Status: Acute Category: Surgical Code(s): Z95.810 - Presence of automatic (implantable) cardiac defibrillator (5) History of mitral valve replacement with mechanical valve: Status: Acute Category: Surgical Code(s): Z95.2 - Presence of prosthetic heart valve (6) CKD (chronic kidney disease) stage 4, GFR 15-29 ml/min: Status: Acute Category: Medical Code(s): N18.4 - Chronic kidney disease, stage 4 (severe) (7) Pulmonary hypertension: Status: Suspected Category: Medical Code(s): I27.20 - Pulmonary hypertension, unspecified (8) Diabetes mellitus: Status: Acute Qualifiers: Diabetes mellitus complication status: without complication Diabetes mellitus type: type 1 Qualified Code(s): E10.9 - Type 1 diabetes mellitus without complications Category: Medical Code(s): E11.9 - Type 2 diabetes mellitus without complications (9) Atrial fibrillation, chronic: Status: Acute Category: Medical Code(s): I48.20 - Chronic atrial fibrillation, unspecified (10) COPD (chronic obstructive pulmonary disease): Status: Acute Qualifiers: COPD type: unspecified COPD Qualified Code(s): J44.9 - Chronic obstructive pulmonary disease, unspecified Category: Medical Code(s): J44.9 - Chronic obstructive pulmonary disease, unspecified (11) GERD (gastroesophageal reflux disease): Status: Acute Qualifiers: Esophagitis presence: esophagitis presence not specified Qualified Code(s): K21.9 - Gastro-esophageal reflux disease without esophagitis Category: Medical Code(s): K21.9 - Gastro-esophageal reflux disease without esophagitis (12) HTN (hypertension): Status: Acute Qualifiers: Hypertension type: unspecified Qualified Code(s): I10 - Essential (primary) hypertension Category: Medical Code(s): I10 - Essential (primary) hypertension Plan Irina Costa is a 59-year-old female with a history of autoimmune hemolytic anemia, mechanical mitral valve, HFrEF, chronic anticoagulation, hypertension, chronic A-fib. Presented to cardiology clinic and was found to be in increased respiratory distress with increased swelling in her legs. Concern for HFrEF exacerbation. Discussed case with cardiology, request admission for diuresis and further workup including right heart cath. I agreed to admit for further care. Initiated on Bumex. Necessitating inpatient care. Problems addressed as follows: Acute on chronic HFrEF Mechanical mitral valve Chronic A-fib - Bumex 4 mg IV once, continue Bumex 3 mg IV twice daily - N.p.o. at midnight, plan for right heart cath in the morning - Cardiology consulted, appreciate their recommendations. Monitor on telemetry - Continue warfarin for goal INR 2.5-3.5. INR 2.7 on admission. - Repeat echo obtained, previous EF of 33% on cardiac MRI. - BiV pacemaker placed 07/11/2024. - CardioMEMS in place but no longer transmitting information - Continue aspirin 50 mg Toal is on 2.5 Drea daily - Continue amiodarone 200 mg daily. Holding beta-melany at this time TRISTAN on CKD - Sodium 131, bicarb 32, potassium 4.7. BUN 86 with creatinine 3.0. - Kidney function worse from baseline. Baseline creatinine 2.0-2.2. Concern for renal congestion. Anticipate improvement with diuresis. Repeat labs ordered for the morning. - Needs nephrology referral as an outpatient, still making urine at this time. #Chronic autoimmune hemolytic anemia - Labs at time of admission with white count of 6.8, hemoglobin 7.4. Close to patient's baseline. - Severe iron deficiency noted on her previous labs. Will administer Venofer 200 mg IV once ? Transfusion threshold hemoglobin less than 7 - Repeat CBC, CMP, magnesium, INR and PT ordered for the morning #Type 2 diabetes ? Hemoglobin A1c 7.9% ? LDSSI, ACHS glucose checks. - Continue home insulin glargine 14 units nightly, holding Jardiance in the setting of worsening kidney function Chronic pain continue oxycodone 10 mg 4 times a day as needed for severe pain Hypothyroid: Continue levothyroxine 25 mcg daily Depression: Continue Cymbalta 60 mg nightly, continue Xanax 0.5 mg 3 times a day as needed for anxiety Mechanical mitral valve-Continue Coumadin therapy Chronic atrial fibrillation-rate controlled. Continue home amiodarone. Hold home warfarin. DNR DVT prophylaxis: Continue warfarin per home regimen
[2025-04-05 15:45] LABS: Basophils % 0.6 % (0.1-2.0); Eosinophils # 0.1 Kmm3 (0.0-0.4); Eosinophils % 2.1 % (0.1-12.0); Hematocrit 25.1 % (37.0-47.0); Hemoglobin 7.4 g/dL (12.2-16.2); Immature Granulocytes # 0.04 10^3uL; Immature Granulocytes % 0.6 %; Lymphocytes # 0.3 K/mm3 (0.7-4.5); Lymphocytes % 4.1 % (10-50); Mean Corpuscular HGB Conc 29.5 g/dL (31.8-35.4); Mean Corpuscular Hemoglobin 28.6 pg (27.0-31.2); Mean Corpuscular Volume 96.9 fl (81-99); Mean Platelet Volume 9.1 fl (7.4-10.4); Monocytes # 0.8 K/mm3 (0.1-1.0); Monocytes % 12.2 % (1.7-9.3); Neutrophils # 5.5 K/mm3 (1.8-7.8); Neutrophils % 80.4 % (37.0-80.0); Nucleated Red Blood Cells # 0 10^3/uL; Nucleated Red Blood Cells % 0 %; Platelet Count 232 K/mm3 (142-424); Red Blood Count 2.59 M/mm3 (4.20-5.40); Red Cell Distribution Width 20.7 % (11.5-17.5); Red Cell Distribution Width-SD 73.4 fL; White Blood Count 6.8 K/mm3 (4.8-10.8)
[2025-04-05 15:47] LABS: MANUAL DIFFERENTIAL MANUAL DIFFERENTIAL (MANUAL DIFF)
--- NOTE | 2025-04-05 16:00 | CA_ITS ---
APPROVED REPORT EXAM: Comprehensive 2D, Doppler, and color-flow Echocardiogram [place] Carpenter: Malini Del Cid RVT Ht: 5 ft 4 in Wt: 184lbs BSA: 1.89 BP: 96/59 mmHg Indications: CHF,MECH MVR,CAD,A-FIB,CM,AICD,PHTN,DM,COPD,HTN,HLD 2D Dimensions LA Volume 212.50 mL LA Volume Index 112.43 mL/m2 (M/F) 16-34 M-Mode Dimensions RVDd 4.67 cm (0.9-2.6) LA Diam 6.05 cm (1.9-4.0) LVDd 5.32 cm (3.5-5.7) LVDs 5.04 cm (3.5-5.7) IVSd 1.07 cm (0.6-1.1) PWd 0.65 cm (0.6-1.1) EF (Teich) 11.70% FS 5.30% EDV (Teich) 136.50 mL TAPSE 1.97 (<1.7) ESV (Teich) 120.50 mL Aortic Valve CLAIR Index 0.90 cm2/m2 AoV Peak Jak. 170.0 (50-130 cm/s) AI PHT 626.00 ms AO Peak GR. 11.60 mmHg AO Mean GR. 6.00 (<5 mmHg) AO VTI 29.9 (18-25 cm) CLAIR (VTI) 1.73 (2.5-4.5 cm2) Mitral Valve MV Mean Gr. 5.20 (<2mmHg) MV PHT 67.0 ms Pulmonary Valve PV Peak Velocity 67.0 (50-150 cm/s) Tricuspid Valve TR P. Velocity 273.00 cm/s RAP Estimate 15.00 mmHg RVSP 44.80 mmHg Left Ventricle The left ventricle is normal size. Left ventricular systolic function is severely decreased. There is increased LV wall thickness. There is severe global hypokinesis present. The septum is asynchronous. There is leftward septal bowing present, suggestive of right-sided pressure/volume overload. Grade 3 diastolic dysfunction is present. LVEF is 15-20%. Right Ventricle Right ventricle is mildly dilated. Right ventricle is mildly hypokinetic. There is a device lead in the right ventricle. Atria The left atrium is severely dilated. The right atrium is severely dilated. There is no Doppler evidence of interatrial shunt. Aortic Valve The aortic valve is mildly thickened. Mild aortic regurgitation. There is no aortic valvular stenosis. Mitral Valve Mechanical mitral valve is present. The prosthesis is well-seated. No evidence of mobile echodensities. Mean MV gradient 5 mmHg (HR 80 bpm). PHT is 67 ms. Mild central mitral regurgitation. Tricuspid Valve The tricuspid valve leaflets are thin and pliable. Severe tricuspid regurgitation. RVSP is 35-40 mmHg (may be underestimated in the setting of severe TR). Pulmonic Valve The pulmonary valve is normal in structure. Trace pulmonic regurgitation. Great Vessels The aortic root is normal in size. The IVC is dilated. Pericardium There is no pericardial effusion. Other Information Study Quality: Fair Conclusion Severe reduction in LV systolic function (LVEF 15-20%). Grade 3 diastolic dysfunction. Asynchronous septum. Leftward septal bowing is present, suggestive of right-sided pressure/volume overload. Mild RV dilation with mild reduction in RV function. Severe biatrial dilation. s/p mechanical MVR. Mild MR. Acceptable MV gradients. Mild AI. Severe TR. Elevated RVSP 35-40 mmHg (may be underestimated in the setting of severe TR). Compared to prior study on 01/05/2025, the LV systolic function is now further reduced. Electronically signed by : Sade Caldwell MD 04/06/2025 20:32:06
[2025-04-05 16:03] LABS: Alanine Aminotransferase 17 U/L (12-78); Albumin Level 4.1 g/dl (3.5-5.0); Albumin/Globulin Ratio 1.5 (1.1-1.8); Alkaline Phosphatase 117 U/L (38-126); Anion Gap 13.7 mEq/L (5-15); Aspartate Amino Transferase 23 U/L (14-36); Calcium 9.3 mg/dl (8.4-10.2); Carbon Dioxide 32 mmol/L (22.0-30.0); Chloride 90 mmol/L (98-107); Creatinine Clearance Estimated 26 mL/min (50-200); Estimated Glomerular Filt Rate 16 ml/min (>60); GFR (African American) 19 ML/MIN (>60); Globulin 2.7 g/dL (1.3-3.2); Glucose 102 mg/dl (74-100); Magnesium 2.9 mg/dl (1.6-2.3); Potassium 4.7 mmoL/L (3.5-5.1); Sodium 131 mmol/L (136-145); Total Protein,Serum 6.8 g/dl (6.3-8.2)
[2025-04-05 16:04] LABS: Blood Urea Nitrogen 86 mg/dl (7-17)
[2025-04-05 16:17] LABS: INR 2.74 (0.9-1.1); Prothrombin Time 27.8 seconds (10.1-12.5)
[2025-04-05 17:00] VITALS: BP 107/57; PULSE 80; RESP 16; O2SAT 97
[2025-04-05] MEDS: IRON SUCROSE COMPLEX 200 MG in 0.9 % SODIUM CHLORIDE 100 ML 220 MG IV (17:17)
[2025-04-05] MEDS: BUMETANIDE 1MG/4ML VIAL 4 MG IV (17:17)
[2025-04-05 17:23] LABS: Eosinophils % 1 % (0-3); Lymphocytes % 6 % (10-50); Monocytes % 11 % (2-9); Neutrophils % 82 % (42-76); Total Cells Counted 100
[2025-04-05 17:24] LABS: Stomatocytes 2+
[2025-04-05 17:25] LABS: Anisocytosis 2+; Hypochromasia 3+; Ovalocytes 1+
[2025-04-05 17:26] LABS: Platelet Estimate Normal
[2025-04-05 17:35] LABS: POC Glucose,Bedside 103 (70-110)
--- NOTE | 2025-04-05 17:37 | PC.NURSE ---
Pt is A&Ox4. Vitals signs stable tolerating room air. Diuretics given per JAN. Venofer infusing per JAN. Pt complains of generalized pain. Offered pain medication, pt refused at this time. ACHS fingersticks. Up stand by to the bathroom. No further needs voiced at this time. Call light within reach.
[2025-04-05 18:54] VITALS: BP 106/58
[2025-04-05 19:54] VITALS: BP 103/59; PULSE 79; RESP 16; TEMP 36.6; O2SAT 71
[2025-04-05 20:00] VITALS: PULSE 60
[2025-04-05] MEDS: INSULIN GLARGINE 100 UNITS/ML 3ML FLEXPEN 14 UNIT SUBCUT (21:00)
[2025-04-05 21:44] LABS: POC Glucose,Bedside 155 (70-110)
[2025-04-05] MEDS: DULOXETINE 30MG CAPSULE.DR 60 MG PO (22:00)
[2025-04-05] MEDS: PANTOPRAZOLE 40MG TABLET 40 MG PO (22:00)
[2025-04-05] MEDS: OXYCODONE 10MG W/APAP 325MG TABLET 1 EACH PO (22:01)
[2025-04-06] VITALS (29 sets, daily range): BP systolic 87–153; BP diastolic 47–72; PULSE 70–83; RESP 14–18; TEMP 36.4–36.8; O2SAT 91–100; BMI 30.7
--- NOTE | 2025-04-06 05:44 | PC.NURSE ---
v/s, ox4. NPO at midnight for possible procedure. Blood glucose monitored. No acute events to report. plan of care ongoing.
[2025-04-06 06:22] LABS: POC Glucose,Bedside 148 (70-110)
[2025-04-06] MEDS: LEVOTHYROXINE 25MCG (0.025MG) TAB 25 MCG PO (06:43)
[2025-04-06 06:48] LABS: Basophils % 0.7 % (0.1-2.0); Eosinophils # 0.2 Kmm3 (0.0-0.4); Eosinophils % 2.7 % (0.1-12.0); Hematocrit 23.9 % (37.0-47.0); Immature Granulocytes # 0.03 10^3uL; Immature Granulocytes % 0.5 %; Lymphocytes # 0.3 K/mm3 (0.7-4.5); Lymphocytes % 4.6 % (10-50); Mean Corpuscular HGB Conc 29.3 g/dL (31.8-35.4); Mean Corpuscular Hemoglobin 28.1 pg (27.0-31.2); Mean Platelet Volume 9.8 fl (7.4-10.4); Monocytes # 0.8 K/mm3 (0.1-1.0); Monocytes % 13.4 % (1.7-9.3); Neutrophils # 4.6 K/mm3 (1.8-7.8); Neutrophils % 78.1 % (37.0-80.0); Nucleated Red Blood Cells # 0 10^3/uL; Nucleated Red Blood Cells % 0 %; Platelet Count 234 K/mm3 (142-424); Red Blood Count 2.49 M/mm3 (4.20-5.40); Red Cell Distribution Width 20.3 % (11.5-17.5); Red Cell Distribution Width-SD 71.8 fL; White Blood Count 5.8 K/mm3 (4.8-10.8)
[2025-04-06 06:53] LABS: Alanine Aminotransferase 18 U/L (12-78); Albumin Level 3.8 g/dl (3.5-5.0); Albumin/Globulin Ratio 1.4 (1.1-1.8); Alkaline Phosphatase 94 U/L (38-126); Anion Gap 14.4 mEq/L (5-15); Aspartate Amino Transferase 33 U/L (14-36); Calcium 9.4 mg/dl (8.4-10.2); Carbon Dioxide 30 mmol/L (22.0-30.0); Chloride 92 mmol/L (98-107); Chol/HDL Ratio 7.8 (1-3.5); Cholesterol 132 mg/dl (140-200); Creatinine Clearance Estimated 27 mL/min (50-200); Estimated Glomerular Filt Rate 17 ml/min (>60); GFR (African American) 21 ML/MIN (>60); Globulin 2.7 g/dL (1.3-3.2); Glucose 120 mg/dl (74-100); HDL Cholesterol 17 mg/dl (40-60); Magnesium 2.8 mg/dl (1.6-2.3); Potassium 4.4 mmoL/L (3.5-5.1); Sodium 132 mmol/L (136-145); Total Protein,Serum 6.5 g/dl (6.3-8.2); Triglycerides 141 mg/dl (30-150); VLDL Cholesterol 28 mg/dL (0-40)
[2025-04-06 07:04] LABS: Direct LDL Cholesterol 77.64 mg/dL (100-129); MANUAL DIFFERENTIAL MANUAL DIFFERENTIAL (MANUAL DIFF)
[2025-04-06 07:20] LABS: INR 2.19 (0.9-1.1); Prothrombin Time 22.7 seconds (10.1-12.5)
[2025-04-06 07:42] LABS: Blood Urea Nitrogen 88 mg/dl (7-17)
[2025-04-06 08:07] LABS: Eosinophils % 2 % (0-3); Lymphocytes % 13 % (10-50); Monocytes % 6 % (2-9); Neutrophils % 79 % (42-76); Total Cells Counted 100
[2025-04-06 08:08] LABS: Platelet Estimate Normal; RBC Morphology Normal
[2025-04-06] MEDS: AMIODARONE 200MG TABLET 200 MG PO (08:25)
[2025-04-06] MEDS: metOLazone 2.5MG TABLET 2.5 MG PO (08:25)
--- NOTE | 2025-04-06 09:09 | HMH.PHAINT1 ---
Pharmacy Intervention Comments: HOME MEDICATION LIST VERIFIED USING LIST FROM OUTPATIENT PHARMACY, PT INTERVIEW AND CALLING [facility]
--- NOTE | 2025-04-06 10:05 | XR_ITS ---
FINAL REPORT CLINICAL HISTORY: CHF, COPD COMPARISON: 02/12/2025 FINDINGS: A portable view of the chest was obtained. There has been no change in the left AICD. Again noted is status poststernotomy. The heart is enlarged but stable. Interstitial opacities have slightly improved since the previous exam. There is no significant pleural effusion. No pneumothorax. IMPRESSION: Slightly improved interstitial opacities with no significant pleural effusion. Reviewed, Interpreted and Dictated by Chitra Velasquez MD Transcribed by Purvi Wang Authenticated and [facility]
[2025-04-06 10:06] LABS: Iron 101 ug/dL (37-170)
[2025-04-06 10:15] LABS: Total Iron Binding Capacity 434 ug/dL (265-497)
[2025-04-06 10:26] LABS: NT Pro Brain Natriuretic Pep. 4400 pg/mL (0-125)
[2025-04-06] MEDS: ACETAMINOPHEN 325MG TAB 650 MG PO ×2 (10:59→16:54)
[2025-04-06] MEDS: diphenhydrAMINE 25MG CAPSULE 25 MG PO (10:59)
[2025-04-06 11:18] LABS: POC Glucose,Bedside 154 (70-110)
[2025-04-06] MEDS: SPIRONOLACTONE 25MG TABLET 50 MG PO (12:31)
[2025-04-06] MEDS: BUMETANIDE 1MG/4ML VIAL 3 MG IV ×2 (12:32→16:55)
[2025-04-06] MEDS: WARFARIN 2MG TABLET 4 MG PO (12:32)
--- NOTE | 2025-04-06 13:00 | PC.NURSE ---
per Loretta Clemons, due to pt taking warfarin daily before admission and having low hgb, no heart cath will be completed today
--- NOTE | 2025-04-06 13:33 | EXP.CARD.CON ---
History of Present Illness History of Present Illness Consult date: 04/06/25 Requesting physician: Neptali Herbert Chief complaint: weakness, edema History of present illness: 60-year-old white female established patient of our office with significant CV history including heart failure reduced ejection fraction with EF around 25 to 30% status post USABILITY STRATEGIST-D and CardioMEMS device. She also has a mechanical mitral valve replacement on chronic Coumadin therapy, has severe biatrial dilation, moderate to severe TR, paroxysmal atrial fibrillation, autoimmune hemolytic anemia status post port placement with recurrent current iron and blood transfusions, CKD 3 with baseline creatinine around 2.0. Patient came to the office yesterday with about 1 week of worsening dyspnea on exertion and lower extremity edema with orthopnea. She was direct admitted for diuresis and further workup and management. Patient diuresed 1.5 L overnight and states she feels significantly better this morning. Her hemoglobin is 7. PFSH [facility] Disclaimer: The information contained in this section may have been updated after the patient was seen, as this information can be updated by other users. Medical History Acute on chronic HFrEF (heart failure with reduced ejection fraction) Symptomatic anemia Critical polytrauma Headache Epistaxis Rib pain on right side AICD discharge Non-ST elevation HI (NSTEMI) TRISTAN (acute kidney injury) Hemolytic uremic syndrome Urinary tract infection Infection due to ESBL-producing Escherichia coli Diarrhea Urinary tract infectious disease Encounter for pre-operative cardiovascular clearance Vitamin D deficiency intermediate frame tender current use of anticoagulants with INR goal of 2.5-3.5 Third degree heart block Junctional escape rhythm Current use of jail anticoagulation Afib HFrEF (heart failure with reduced ejection fraction) Partial tear of tendon CHF (NYHA class III, ACC/AHA stage C) Atrial fibrillation, chronic COPD exacerbation CHF exacerbation Anemia Systolic CHF Typical angina Dyspnea Rib fracture Blood transfusion reaction Autoimmune hemolytic anemia Arthritis Hernia Sinus problem Rheumatic heart disease Hypothyroidism Polyarthralgia Pulmonary edema HLD (hyperlipidemia) HTN (hypertension) CAD (coronary artery disease) DM type 2 (diabetes mellitus, type 2) DVT (deep venous thrombosis) Cardiomyopathy Arrhythmia Liver disease Thyroid disease Valvular heart disease Hypertension Hyperlipidemia GERD (gastroesophageal reflux disease) COPD (chronic obstructive pulmonary disease) Class 1 obesity CKD (chronic kidney disease) stage 3, GFR 30-59 ml/min Coronary artery disease Congestive heart failure, NYHA class III NYHA class 3 acute on chronic systolic heart failure Diabetes mellitus Hypertensive heart disease CHF (congestive heart failure) Diastolic heart failure Tricuspid valve regurgitation Surgical History Presence of biventricular AICD History of mitral valve replacement with mechanical valve Mitral valve replaced History of colon resection H/O tubal ligation History of angioplasty History of renal stent History of ureteroscopy History of tubal ligation History of hernia repair History of cardiac catheterization Family History Other Breast cancer COPD (chronic obstructive pulmonary disease) Colon cancer Family history of acute heart failure Family history of hyperlipidemia Family history of hypertension Family history of myocardial infarction Hypertension Stroke Social History Smoking Status: Former smoker tobacco type: cigarettes packs per day: 1 smoking status stop date: 01/09/2006 quit status: quit date established second hand exposure: Yes alcohol intake: never substance use type: denies use current occupational status: retired and disabled Travel in the last 8 weeks?: None adopted: No caregiver/support person: No foster care: No household members: significant other housing: house lives independently: Yes marital status: life partner education level: college service: No mcc: No current occupational exposures/hazards: No sexually active: Yes how many partners: 1 are you practicing safe sex: Yes diet: diabetic well-balanced diet: about half the time caffeine: No eating out: rarely or never during the past year weight has: remained stable 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: [employer] special bhavya needs: No agree to transfusion: Yes helmet use: No water heater temp set < 120 deg: Yes working smoke detector in home: Yes fire extinguisher in home: Yes carbon monox detector in home: Yes firearms in home: No do you feel safe at home: Yes victim of physical abuse: No victim of emotional abuse: No victim of sexual abuse: No would you like helpful sources: No Have you lived/traveled outside [place] in past 30 days?: No Contact w/someone who lives/traveled outside [place] past 30 days?: No Exposure to someone with infectious disease in past 14 days?: No Do you have a fever (greater than 100.4 F or 38 C)?: No Have you tested positive for COVID-19?: No Exposed to someone with COVID-19 in past 14 days?: No Do you have a sore throat?: No Do you have a cough?: No Do you have any weakness?: No Do you have any diarrhea?: No Are you experiencing any unusual bleeding?: No Do you have any muscle aches/pain?: No Do you have any abdominal pain?: No Are you experiencing loss of taste or smell?: No Review of Systems Constitutional Constitutional: Reports fatigue and Reports weakness Eyes Eyes: Denies loss of vision ENT Ears, Nose, Mouth, and Throat: Denies hearing loss and Denies vertigo *Cardiovascular Cardiovascular: Denies chest pain, Reports dyspnea, Reports leg edema and Denies syncope *Respiratory Respiratory: Denies cough and Reports dyspnea *Gastrointestinal Gastrointestinal: Denies change in stool character, Denies nausea and Denies vomiting *Musculoskeletal Musculoskeletal: Denies muscle weakness Integumentary/Breasts Skin/Breast: Denies changing lesions *Neurologic Neurologic: Denies loss of vision, Denies syncope, Denies vertigo and Reports weakness Endocrine Endocrine: Reports fatigue Exam Data for Last 24 hours Vital signs and Labs for Last 24 Hours: Temp Pulse Resp BP Pulse Ox O2 Del Method O2 Flow Rate 98.1 F 80 16 99/55 L 100 Room Air 2 04/06/25 12:30 04/06/25 12:30 04/06/25 12:30 04/06/25 12:30 04/06/25 12:30 04/06/25 11:00 04/06/25 08:31 Laboratory Results - last 24 hr 04/05/25 15:38: WBC 6.8, RBC 2.59 L, Hgb 7.4 L, Hct 25.1 L, MCV 96.9, MCH 28.6, MCHC 29.5 L, RDW 20.7 H, Plt Count 232, MPV 9.1, Neut % (Auto) 80.4 H, Lymph % (Auto) 4.1 L, [place] % (Auto) 12.2 H, Eos % (Auto) 2.1, Baso % (Auto) 0.6, Neut # (Auto) 5.5, Lymph # (Auto) 0.3 L, [place] # (Auto) 0.8, Eos # (Auto) 0.1, Baso # (Auto) 0.0, Total Counted 100, Neutrophils % (Manual) 82 H, Lymphocytes % (Manual) 6 L, Monocytes % (Manual) 11 H, Eosinophils % (Manual) 1, Platelet Estimate Normal, Hypochromasia 3+, Anisocytosis 2+, Ovalocytes 1+, Stomatocytes 2+, PT 27.8 H, INR 2.74 H, Sodium 131 L, Potassium 4.7, Chloride 90 L, Carbon Dioxide 32 H, Anion Gap 13.7, BUN 86 H, Creatinine 3.00 H, Estimated Creat Clear 26, Estimated GFR 16 L*, Est GFR ( Amer) 19 L*, Glucose 102 H, Calcium 9.3, Magnesium 2.9 H, Total Bilirubin 1.0, AST 23, ALT 17, Alkaline Phosphatase 117, Total Protein 6.8, Albumin 4.1, Globulin 2.7, Albumin/Globulin Ratio 1.5 04/05/25 17:21: POC Glucose 103 04/05/25 21:36: POC Glucose 155 H 04/06/25 05:43: WBC 5.8, RBC 2.49 L, Hgb 7.0 L, Hct 23.9 L, MCV 96.0, MCH 28.1, MCHC 29.3 L, RDW 20.3 H, Plt Count 234, MPV 9.8, Neut % (Auto) 78.1, Lymph % (Auto) 4.6 L, [place] % (Auto) 13.4 H, Eos % (Auto) 2.7, Baso % (Auto) 0.7, Neut # (Auto) 4.6, Lymph # (Auto) 0.3 L, [place] # (Auto) 0.8, Eos # (Auto) 0.2, Baso # (Auto) 0.0, Total Counted 100, Neutrophils % (Manual) 79 H, Lymphocytes % (Manual) 13, Monocytes % (Manual) 6, Eosinophils % (Manual) 2, Platelet Estimate Normal, RBC Morphology Normal, PT 22.7 H, INR 2.19 H, Sodium 132 L, Potassium 4.4, Chloride 92 L, Carbon Dioxide 30, Anion Gap 14.4, BUN 88 H, Creatinine 2.80 H, Estimated Creat Clear 27, Estimated GFR 17 L*, Est GFR ( Amer) 21 L, Glucose 120 H, Calcium 9.4, Magnesium 2.8 H, Iron 101, TIBC 434, Iron Saturation 23.28304, Total Bilirubin 1.0, AST 33 D, ALT 18, Alkaline Phosphatase 94, NT-Pro-B Natriuret Pep 4400 H, Total Protein 6.5, Albumin 3.8, Globulin 2.7, Albumin/Globulin Ratio 1.4, Triglycerides 141, Cholesterol 132 L, LDL Cholesterol Direct 77.64 L, VLDL Cholesterol 28, HDL Cholesterol 17 L, Cholesterol/HDL Ratio 7.8 H 04/06/25 06:15: POC Glucose 148 H 04/06/25 07:55: Blood Type O Positive, Antibody Screen Negative, Crossmatch (AHG) See Detail 04/06/25 11:11: POC Glucose 154 H I & O for Last 24 hours: Intake & Output 04/03/25 04/04/25 04/05/25 04/06/25 23:59 23:59 23:59 23:59 Intake Total 120 / 360 240 / 240 Output Total 200 / 900 1700 / 1700 Balance -80 / -540 -1460 / -1460 Weight 184 lb 1 oz 180 lb 2.941 oz Constitutional Constitutional: no acute distress and cooperative *Routine HEENT Exam Eye: Present PERRL *Routine Respiratory Exam Respiratory: Present CTA bilaterally; Absent accessory muscle use, wheezes or crackles *Routine Cardiovascular Exam Cardiovascular: Present RRR, Normal S1 and Normal S2; Absent murmur, gallop or rubs *Routine Abdominal Exam Abdominal: Present soft; Absent tenderness *Routine Extremities Exam Extremities: Present pulses intact; Absent cyanosis or edema *Routine Skin Exam Skin: Present intact; Absent erythema or wounds *Routine Neurological Exam Neurological: Present alert and oriented X3 Routine Psychiatric Exam Psychiatric: Present cooperative Meds Home Medications and Allergies Home Medications ?Medication ?Instructions ?Recorded ?Confirmed ?Type aspirin 81 mg tablet,delayed 81 mg PO DAILY 12/01/17 04/05/25 History release (Adult Low Dose Aspirin) oxycodone-acetaminophen 10 mg-325 1 tab PO QID PRN Pain, Moderate 05/23/18 04/05/25 History mg tablet (Percocet) alprazolam 0.5 mg tablet (Xanax) 0.5 mg PO TID PRN Anxiety 11/29/19 04/05/25 History levothyroxine 25 mcg tablet 25 mcg PO DAILY 06/05/21 04/05/25 History insulin glargine 100 60 units SQ DAILY 02/22/22 04/05/25 History unit-lixisenatide 33 mcg/mL subcutaneous pen (Soliqua /33) febuxostat 40 mg tablet 40 mg PO DAILY 02/09/23 04/05/25 History potassium chloride 20 mEq 20 meq PO BID 04/15/23 04/05/25 History tablet,extended release(part/cryst) calcitriol 0.25 mcg capsule 0.25 mcg PO DAILY 10/30/23 04/05/25 History duloxetine 60 mg capsule,delayed 60 mg PO HS 03/06/24 04/05/25 History release empagliflozin 10 mg tablet 10 mg PO DAILY #30 tabs 07/17/24 04/05/25 Rx (Jardiance) spironolactone 50 mg tablet 50 mg PO DAILY 30 days #180 tabs 01/05/25 04/05/25 Rx warfarin 4 mg tablet 2 mg (1/2 x 4 mg) PO DAILY 30 days 01/05/25 04/05/25 Rx #0 tabs insulin glargine 100 unit/mL (3 14 unit SQ HS 01/17/25 04/05/25 History mL) subcutaneous pen (Lantus Solostar U-100 Insulin) amiodarone 200 mg tablet 200 mg PO DAILY #90 tabs 04/02/25 04/05/25 Rx blood-glucose sensor (Dexcom G6 #1 ea 04/05/25 04/05/25 History Sensor device) blood-glucose transmitter (Dexcom #1 ea 04/05/25 04/05/25 History G6 Transmitter device) blood-glucose,statistical modeler,cont #1 ea 04/05/25 04/05/25 History (Dexcom G6 Financial Service Representative) bumetanide 2 mg tablet 2 mg PO BID #60 tabs 04/05/25 04/05/25 Rx dexlansoprazole 60 mg 60 mg PO DAILY 04/05/25 04/05/25 History capsule,biphase delayed release metolazone 2.5 mg tablet 2.5 mg PO DAILY PRN edema 04/05/25 04/06/25 History metoprolol succinate 100 mg 100 mg PO BID 04/05/25 04/06/25 History tablet,extended release 24 hr pen needle, diabetic 32 gauge x #1,200 ea 04/05/25 04/05/25 History spironolactone 50 mg tablet 50 mg PO BID 04/06/25 04/06/25 History New Prescriptions to Start Prescriptions: Allergies Allergy/AdvReac Type Severity Reaction Status Date / Time codeine (CODEINE) Allergy Unknown nausea, Verified 04/05/25 13:19 swelling Corticosteroids Allergy Unknown Unknown Verified 04/05/25 13:19 (Glucocorticoids) allergy (CORTICOSTEROIDS reaction (GLUCOCORTICOIDS)) NSAIDS (Non-Steroidal Allergy Unknown Other Verified 04/05/25 13:19 Anti-Inflamma rosuvastatin (From CRESTOR) Allergy Unknown Unknown Verified 04/05/25 13:19 allergy reaction theophylline (From DAVID-DUR) Allergy Unknown Unknown Verified 04/05/25 13:19 allergy reaction Iodinated Contrast Media AdvReac Severe shuts Verified 04/05/25 13:19 (IODINATED CONTRAST- ORAL kidneys AND IV DYE) down and bleeding buprenorphine (From BUPRENEX) AdvReac Intermediate Nausea Verified 04/05/25 13:19 levofloxacin (From Levaquin) AdvReac Other Verified 04/05/25 13:19 lisinopril AdvReac Cough Verified 04/05/25 13:19 prednisone AdvReac Unknown Verified 04/05/25 13:19 allergy reaction sacubitril (From Entresto) AdvReac Hypotension Verified 04/05/25 13:19 valsartan (From Entresto) AdvReac Hypotension Verified 04/05/25 13:19 Assessment and Plan *Assessment and plan (1) Acute on chronic HFrEF (heart failure with reduced ejection fraction): Status: Acute Category: Medical Code(s): I50.23 - Acute on chronic systolic (congestive) heart failure (2) Iron deficiency anemia: Status: Acute Category: Medical Code(s): D50.9 - Iron deficiency anemia, unspecified (3) Anticoagulation goal of INR 2.5 to 3.5: Status: Acute Category: Medical Code(s): Z51.81 - Encounter for therapeutic drug level monitoring; Z79.01 - intermediate frame tender (current) use of anticoagulants (4) Presence of biventricular AICD: Status: Acute Category: Surgical Code(s): Z95.810 - Presence of automatic (implantable) cardiac defibrillator (5) History of mitral valve replacement with mechanical valve: Status: Acute Category: Surgical Code(s): Z95.2 - Presence of prosthetic heart valve (6) CKD (chronic kidney disease) stage 4, GFR 15-29 ml/min: Status: Acute Category: Medical Code(s): N18.4 - Chronic kidney disease, stage 4 (severe) (7) Pulmonary hypertension: Status: Suspected Category: Medical Code(s): I27.20 - Pulmonary hypertension, unspecified (8) Diabetes mellitus: Status: Acute Qualifiers: Diabetes mellitus complication status: without complication Diabetes mellitus type: type 1 Qualified Code(s): E10.9 - Type 1 diabetes mellitus without complications Category: Medical Code(s): E11.9 - Type 2 diabetes mellitus without complications (9) Atrial fibrillation, chronic: Status: Acute Category: Medical Code(s): I48.20 - Chronic atrial fibrillation, unspecified (10) COPD (chronic obstructive pulmonary disease): Status: Acute Qualifiers: COPD type: unspecified COPD Qualified Code(s): J44.9 - Chronic obstructive pulmonary disease, unspecified Category: Medical Code(s): J44.9 - Chronic obstructive pulmonary disease, unspecified (11) GERD (gastroesophageal reflux disease): Status: Acute Qualifiers: Esophagitis presence: esophagitis presence not specified Qualified Code(s): K21.9 - Gastro-esophageal reflux disease without esophagitis Category: Medical Code(s): K21.9 - Gastro-esophageal reflux disease without esophagitis (12) HTN (hypertension): Status: Acute Qualifiers: Hypertension type: unspecified Qualified Code(s): I10 - Essential (primary) hypertension Category: Medical Code(s): I10 - Essential (primary) hypertension Plan Acute on Chronic HFrEF s/p USABILITY STRATEGIST-D and CardioMEMS - known EF 30-35%, mechincal MVR, Severe biatrial dilation, moderate to severe TR - 1 week worsening dyspnea on exertion, lower extremity edema, proBNP 4400, increased congestion noted on USABILITY STRATEGIST-D download - Home dose Bumex 2 mg twice daily, she is on 3 mg twice daily here and having good response with 1.5 L diuresed so far - Continue home dose GDMT as tolerated - Likely exacerbated secondary to worsening severe iron deficiency anemia Paroxysmal atrial fibrillation - V-paced rhythm here - Continue amiodarone and warfarin Mechanical mitral valve replaced - Normal function per office echo - Continue warfarin Autoimmune hemolytic anemia - Status post port placement - Hemoglobin 7 here - Iron repletion and blood transfusion in process CKD 3 - Creatinine 2.8, baseline 2.0 - Monitor with daily labs Plan: Patient symptoms significantly improved with diuresis and iron infusion. She is getting a blood transfusion now. Repeat 2D echo is pending. Will plan to repeat right heart cath but with severe anemia and fully anticoagulated this runs significant risks so will defer for now per Dr. Sawyer. Likely can DC home tomorrow with close outpatient f/u.
[2025-04-06 15:51] LABS: Hematocrit 27.1 % (37.0-47.0)
[2025-04-06 16:14] LABS: Hemoglobin 8.2 g/dL (12.2-16.2)
[2025-04-06] MEDS: diphenhydrAMINE 50MG/ML VIAL 25 MG IV (16:59)
--- NOTE | 2025-04-06 18:20 | PC.NURSE ---
pt a &ox4. resting supine in bed. 2L nc in place for pt comfort. 1 unit of blood administered this shift with another currently infusing. pt premedicated with tylenol and benadryl per jan. pt tolerating po intake well. bumex given per jan. pt remains hypotensive but is asymptomatic. ambulates independently to the br. no needs at this time. call light within reach.
[2025-04-06] MEDS: PANTOPRAZOLE 40MG TABLET 40 MG PO (20:06)
[2025-04-06] MEDS: DULOXETINE 30MG CAPSULE.DR 60 MG PO (20:06)
[2025-04-06 20:16] LABS: POC Glucose,Bedside 204 (70-110)
[2025-04-06] MEDS: INSULIN GLARGINE 100 UNITS/ML 3ML FLEXPEN 14 UNIT SUBCUT (20:16)
--- NOTE | 2025-04-06 21:55 | EXP.ACUTE.PN ---
Subjective *Date: 04/06/25 *Time: 21:55 Interval history: Feeling somewhat better this morning. Diuresed 1 L since admission. On 2 L oxygen overnight, back to room air this morning. Denies chest pain. States improvement in swelling in her legs. Medical Exam Vital signs and Labs for Last 24 Hours: Vital Signs Temp Pulse Pulse Resp BP BP Pulse Ox 04/06/25 21:13 98.2 F 83 16 104/67 L 97 04/06/25 20:15 98.2 F 81 17 105/63 L 99 04/06/25 20:00 97.7 F 82 14 108/69 L 99 04/06/25 19:15 98.2 F 82 16 94/60 L 97 04/06/25 19:00 97.9 F 80 16 92/65 L 97 04/06/25 19:00 97.9 F 80 16 92/65 L 97 04/06/25 18:45 98.0 F 82 16 100/64 L 97 04/06/25 18:38 04/06/25 18:30 98.1 F 80 14 103/57 L 97 04/06/25 18:25 98.0 F 80 16 95/53 L 97 04/06/25 18:20 98.2 F 80 14 97/59 L 98 04/06/25 18:15 98.0 F 80 18 95/61 L 97 04/06/25 18:10 98.1 F 80 16 101/55 L 98 04/06/25 17:00 04/06/25 16:00 80 04/06/25 15:50 98 F 82 16 101/60 L 91 L 04/06/25 15:00 04/06/25 14:35 97.9 F 80 16 90/55 L 93 L 04/06/25 14:16 80 04/06/25 13:35 98.0 F 80 18 96/66 L 96 04/06/25 13:00 04/06/25 12:45 98.0 F 80 16 99/57 L 98 04/06/25 12:30 98.1 F 80 16 99/55 L 100 04/06/25 12:15 98.0 F 80 16 97/53 L 100 04/06/25 12:00 97.6 F 80 16 99/56 L 96 04/06/25 11:55 98.2 F 80 16 90/60 L 96 04/06/25 11:50 98.0 F 80 18 102/57 L 95 04/06/25 11:45 98.1 F 80 16 87/47 L 94 L 04/06/25 11:25 98.0 F 80 16 101/66 L 97 04/06/25 11:00 04/06/25 10:30 70 04/06/25 08:31 04/06/25 08:00 04/06/25 08:00 98 F 81 17 90/56 L 98 04/06/25 06:21 04/06/25 05:00 04/06/25 04:00 97.6 F 71 16 153/72 H 99 04/06/25 04:00 80 04/06/25 03:00 04/06/25 01:00 04/06/25 00:00 80 04/06/25 00:00 97.6 F 82 16 92/56 L 98 04/05/25 23:00 O2 Del Method O2 Flow Rate 04/06/25 21:13 04/06/25 20:15 04/06/25 20:00 Nasal Cannula 04/06/25 19:15 04/06/25 19:00 04/06/25 19:00 04/06/25 18:45 04/06/25 18:38 Room Air 04/06/25 18:30 04/06/25 18:25 04/06/25 18:20 04/06/25 18:15 04/06/25 18:10 04/06/25 17:00 Room Air 04/06/25 16:00 04/06/25 15:50 Nasal Cannula 04/06/25 15:00 Room Air 04/06/25 14:35 04/06/25 14:16 04/06/25 13:35 04/06/25 13:00 Room Air 04/06/25 12:45 04/06/25 12:30 04/06/25 12:15 04/06/25 12:00 04/06/25 11:55 04/06/25 11:50 04/06/25 11:45 04/06/25 11:25 04/06/25 11:00 Room Air 04/06/25 10:30 04/06/25 08:31 Nasal Cannula 2 04/06/25 08:00 Room Air 04/06/25 08:00 04/06/25 06:21 Nasal Cannula 2 04/06/25 05:00 Nasal Cannula 2 04/06/25 04:00 Nasal Cannula 2 04/06/25 04:00 04/06/25 03:00 Nasal Cannula 2 04/06/25 01:00 Room Air 04/06/25 00:00 04/06/25 00:00 Nasal Cannula 2 04/05/25 23:00 Room Air Intake and Output 04/06/25 04/06/25 04/06/25 07:59 15:59 23:59 Intake Total 240 / 1090 250 / 1090 600 / 1090 Output Total 700 / 1700 1000 / 1700 Balance -460 / -610 -750 / -610 600 / -610 Intake: Intake, Oral Amount 240 / 590 350 / 590 Intake (Blood Product) Amt 250 / 500 250 / 500 Red Blood Cells Unit 250 / 250 [id number] Red Blood Cells Unit 250 / 250 [id number] Output: Output, Urine Amount 700 / 1700 1000 / 1700 Other: Number of Unmeasured Voids 1 1 Weight 81.783 kg 81.73 kg Patient Weight 04/06/25 23:59 Weight 81.73 kg Laboratory Results - last 24 hr 04/06/25 05:43: WBC 5.8, RBC 2.49 L, Hgb 7.0 L, Hct 23.9 L, MCV 96.0, MCH 28.1, MCHC 29.3 L, RDW 20.3 H, Plt Count 234, MPV 9.8, Neut % (Auto) 78.1, Lymph % (Auto) 4.6 L, [place] % (Auto) 13.4 H, Eos % (Auto) 2.7, Baso % (Auto) 0.7, Neut # (Auto) 4.6, Lymph # (Auto) 0.3 L, [place] # (Auto) 0.8, Eos # (Auto) 0.2, Baso # (Auto) 0.0, Total Counted 100, Neutrophils % (Manual) 79 H, Lymphocytes % (Manual) 13, Monocytes % (Manual) 6, Eosinophils % (Manual) 2, Platelet Estimate Normal, RBC Morphology Normal, PT 22.7 H, INR 2.19 H, Sodium 132 L, Potassium 4.4, Chloride 92 L, Carbon Dioxide 30, Anion Gap 14.4, BUN 88 H, Creatinine 2.80 H, Estimated Creat Clear 27, Estimated GFR 17 L*, Est GFR ( Amer) 21 L, Glucose 120 H, Calcium 9.4, Magnesium 2.8 H, Iron 101, TIBC 434, Iron Saturation 23.96060, Total Bilirubin 1.0, AST 33 D, ALT 18, Alkaline Phosphatase 94, NT-Pro-B Natriuret Pep 4400 H, Total Protein 6.5, Albumin 3.8, Globulin 2.7, Albumin/Globulin Ratio 1.4, Triglycerides 141, Cholesterol 132 L, LDL Cholesterol Direct 77.64 L, VLDL Cholesterol 28, HDL Cholesterol 17 L, Cholesterol/HDL Ratio 7.8 H 04/06/25 06:15: POC Glucose 148 H 04/06/25 07:55: Blood Type O Positive, Antibody Screen Negative, Crossmatch (AHG) See Detail 04/06/25 11:11: POC Glucose 154 H 04/06/25 15:42: Hgb 8.2 L D, Hct 27.1 L 04/06/25 20:08: POC Glucose 204 H I & O for Labs for Last 24 Hours: Intake & Output 04/03/25 04/04/25 04/05/25 04/06/25 23:59 23:59 23:59 23:59 Intake Total 120 / 360 1090 / 1090 Output Total 200 / 900 1700 / 1700 Balance -80 / -540 -610 / -610 Weight 83.489 kg 81.73 kg Constitutional: Present mild distress, obese, chronically ill appearing and cooperative Head: Present atraumatic and normocephalic Respiratory: Present rhonchi and normal respiratory effort; Absent wheezes or crackles Cardiac: Present Irregularly Regular and Systolic Murmur (mechanical click) GI: Present soft and normal bowel sounds; Absent distention or tenderness Extremities: Present normal inspection, full ROM and edema (1+ to knees, interval improvement) Skin: Present intact; Absent erythema Neuro: Present Grossly Intact, alert, awake, oriented x 3 and moves all extremities Assessment and Plan *Assessment and plan (1) Acute on chronic HFrEF (heart failure with reduced ejection fraction): Status: Acute Category: Medical Code(s): I50.23 - Acute on chronic systolic (congestive) heart failure (2) Iron deficiency anemia: Status: Acute Category: Medical Code(s): D50.9 - Iron deficiency anemia, unspecified (3) Anticoagulation goal of INR 2.5 to 3.5: Status: Acute Category: Medical Code(s): Z51.81 - Encounter for therapeutic drug level monitoring; Z79.01 - forest ranger (current) use of anticoagulants (4) Presence of biventricular AICD: Status: Acute Category: Surgical Code(s): Z95.810 - Presence of automatic (implantable) cardiac defibrillator (5) History of mitral valve replacement with mechanical valve: Status: Acute Category: Surgical Code(s): Z95.2 - Presence of prosthetic heart valve (6) CKD (chronic kidney disease) stage 4, GFR 15-29 ml/min: Status: Acute Category: Medical Code(s): N18.4 - Chronic kidney disease, stage 4 (severe) (7) Pulmonary hypertension: Status: Suspected Category: Medical Code(s): I27.20 - Pulmonary hypertension, unspecified (8) Diabetes mellitus: Status: Acute Qualifiers: Diabetes mellitus complication status: without complication Diabetes mellitus type: type 1 Qualified Code(s): E10.9 - Type 1 diabetes mellitus without complications Category: Medical Code(s): E11.9 - Type 2 diabetes mellitus without complications (9) Atrial fibrillation, chronic: Status: Acute Category: Medical Code(s): I48.20 - Chronic atrial fibrillation, unspecified (10) COPD (chronic obstructive pulmonary disease): Status: Acute Qualifiers: COPD type: unspecified COPD Qualified Code(s): J44.9 - Chronic obstructive pulmonary disease, unspecified Category: Medical Code(s): J44.9 - Chronic obstructive pulmonary disease, unspecified (11) GERD (gastroesophageal reflux disease): Status: Acute Qualifiers: Esophagitis presence: esophagitis presence not specified Qualified Code(s): K21.9 - Gastro-esophageal reflux disease without esophagitis Category: Medical Code(s): K21.9 - Gastro-esophageal reflux disease without esophagitis (12) HTN (hypertension): Status: Acute Qualifiers: Hypertension type: unspecified Qualified Code(s): I10 - Essential (primary) hypertension Category: Medical Code(s): I10 - Essential (primary) hypertension Ginny Costa is a 59-year-old female with a history of autoimmune hemolytic anemia, mechanical mitral valve, HFrEF, chronic anticoagulation, hypertension, chronic A-fib. Presented to cardiology clinic and was found to be in increased respiratory distress with increased swelling in her legs. Concern for HFrEF exacerbation. Discussed case with cardiology, request admission for diuresis and further workup including right heart cath. I agreed to admit for further care. Initiated on Bumex. Showing some response to diuresis. Negative at least 1 L. Continues to require inpatient care. Problems addressed as follows: Acute on chronic HFrEF Mechanical mitral valve Chronic A-fib - continue Bumex 3 mg IV twice daily - Continue warfarin for goal INR 2.5-3.5. INR 2.2 this morning. Repeat level ordered for the morning. - Repeat echo obtained, previous EF of 33% on cardiac MRI. - BiV pacemaker placed 07/11/2024. - CardioMEMS in place but no longer transmitting information - Continue amiodarone 200 mg daily, metolazone 2.5 mg daily, spironolactone 50 mg daily. Holding beta-melany at this time - Extensive discussion with cardiology, will hold on right heart cath today. Too high risk given anticoagulation, anemia. 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 Recommend continuing diuresis and increasing hemoglobin threshold for transfusion to 9-10. TRISTAN on CKD - Sodium 132, BUN 88, creatinine 2.8, baseline 2.1. - Repeat BMP ordered for this evening. Repeat CBC, CMP, magnesium ordered for the morning. #Chronic autoimmune hemolytic anemia - Status post Venofer 200 mg once last night -Transfusion threshold hemoglobin less than 9, 7 on labs this morning. Will transfuse 2 units today. -Repeat H&H ordered for this evening after second unit #Type 2 diabetes ? Hemoglobin A1c 7.9% ? LDSSI, ACHS glucose checks. - Continue home insulin glargine 14 units nightly, holding Jardiance in the setting of worsening kidney function Chronic pain continue oxycodone 10 mg 4 times a day as needed for severe pain Hypothyroid: Continue levothyroxine 25 mcg daily Depression: Continue Cymbalta 60 mg nightly, continue Xanax 0.5 mg 3 times a day as needed for anxiety Mechanical mitral valve-Continue Coumadin therapy Chronic atrial fibrillation-rate controlled. Continue home amiodarone. Hold home warfarin. DNR DVT prophylaxis: Continue warfarin per home regimen
[2025-04-06 23:46] LABS: Hematocrit 26.9 % (37.0-47.0); Hemoglobin 8.4 g/dL (12.2-16.2)
[2025-04-06 23:51] LABS: Chloride 94 mmol/L (98-107); Potassium 4.5 mmoL/L (3.5-5.1); Sodium 131 mmol/L (136-145)
[2025-04-06 23:54] LABS: Anion Gap 12.5 mEq/L (5-15); Carbon Dioxide 29 mmol/L (22.0-30.0); Creatinine Clearance Estimated 22 mL/min (50-200); Estimated Glomerular Filt Rate 13 ml/min (>60); GFR (African American) 16 ML/MIN (>60); Glucose 182 mg/dl (74-100)
[2025-04-06 23:59] LABS: Blood Urea Nitrogen 87 mg/dl (7-17)
[2025-04-07] VITALS (20 sets, daily range): BP systolic 95–121; BP diastolic 45–78; PULSE 60–90; RESP 13–18; TEMP 36.5–36.7; O2SAT 91–98; BMI 30.7
--- NOTE | 2025-04-07 04:00 | PC.NURSE ---
Pt AOx4. Currently receiving blood with no issues. Pt denies pain or any issues at this time. Sleeping intermittently. Afebrile. Respirations even and unlabored. Resting in low, locked bed with call light in reach.
[2025-04-07] MEDS: OXYCODONE 10MG W/APAP 325MG TABLET 1 EACH PO ×3 (05:09→21:58)
[2025-04-07 05:26] LABS: POC Glucose,Bedside 234 (70-110)
[2025-04-07] MEDS: LEVOTHYROXINE 25MCG (0.025MG) TAB 25 MCG PO (06:07)
[2025-04-07 07:28] LABS: Basophils % 0.6 % (0.1-2.0); Eosinophils # 0.2 Kmm3 (0.0-0.4); Eosinophils % 2.3 % (0.1-12.0); Hematocrit 30.4 % (37.0-47.0); Immature Granulocytes # 0.04 10^3uL; Immature Granulocytes % 0.6 %; Lymphocytes # 0.2 K/mm3 (0.7-4.5); Lymphocytes % 2.4 % (10-50); Mean Corpuscular HGB Conc 30.9 g/dL (31.8-35.4); Mean Corpuscular Hemoglobin 28.5 pg (27.0-31.2); Mean Corpuscular Volume 92.1 fl (81-99); Mean Platelet Volume 9.6 fl (7.4-10.4); Monocytes # 0.7 K/mm3 (0.1-1.0); Monocytes % 10.4 % (1.7-9.3); Neutrophils % 83.7 % (37.0-80.0); Nucleated Red Blood Cells # 0 10^3/uL; Nucleated Red Blood Cells % 0 %; Platelet Count 220 K/mm3 (142-424); Red Cell Distribution Width 19.7 % (11.5-17.5); Red Cell Distribution Width-SD 66.2 fL; White Blood Count 7.1 K/mm3 (4.8-10.8)
[2025-04-07 07:33] LABS: MANUAL DIFFERENTIAL MANUAL DIFFERENTIAL (MANUAL DIFF)
[2025-04-07 07:38] LABS: Alanine Aminotransferase 18 U/L (12-78); Albumin Level 4.1 g/dl (3.5-5.0); Albumin/Globulin Ratio 1.5 (1.1-1.8); Alkaline Phosphatase 115 U/L (38-126); Anion Gap 10.3 mEq/L (5-15); Aspartate Amino Transferase 29 U/L (14-36); Bilirubin,Total 1.3 mg/dl (0.2-1.3); Calcium 9.1 mg/dl (8.4-10.2); Carbon Dioxide 30 mmol/L (22.0-30.0); Chloride 93 mmol/L (98-107); Creatinine Clearance Estimated 27 mL/min (50-200); Estimated Glomerular Filt Rate 17 ml/min (>60); GFR (African American) 21 ML/MIN (>60); Globulin 2.7 g/dL (1.3-3.2); Glucose 185 mg/dl (74-100); Magnesium 2.7 mg/dl (1.6-2.3); Potassium 4.3 mmoL/L (3.5-5.1); Sodium 129 mmol/L (136-145); Total Protein,Serum 6.8 g/dl (6.3-8.2)
[2025-04-07 07:52] LABS: Blood Urea Nitrogen 89 mg/dl (7-17)
[2025-04-07 07:53] LABS: Hemoglobin 9.4 g/dL (12.2-16.2)
[2025-04-07] MEDS: AMIODARONE 200MG TABLET 200 MG PO (08:13)
[2025-04-07] MEDS: metOLazone 2.5MG TABLET 2.5 MG PO (08:13)
[2025-04-07] MEDS: SPIRONOLACTONE 25MG TABLET 50 MG PO (08:13)
[2025-04-07] MEDS: BUMETANIDE 1MG/4ML VIAL 3 MG IV (08:14)
[2025-04-07 08:55] LABS: Hematocrit 30.3 % (37.0-47.0); Hemoglobin 9.3 g/dL (12.2-16.2)
[2025-04-07 09:33] LABS: Hypochromasia 1+; Lymphocytes % 2 % (10-50); Monocytes % 8 % (2-9); Neutrophils % 90 % (42-76); Total Cells Counted 100
[2025-04-07 09:34] LABS: Macrocytosis 1+; Ovalocytes 1+; Platelet Estimate Normal
[2025-04-07] MEDS: WARFARIN 2MG TABLET 2 MG PO (11:50)
[2025-04-07] MEDS: BUMETANIDE 10 MG in 0.9 % SODIUM CHLORIDE 60 ML IV ×2 (14:25→22:05)
[2025-04-07] MEDS: NITROPRUSSIDE SODIUM 50 MG in DEXTROSE 5 % IN WATER 250 ML 12.37 MG IV (14:27)
[2025-04-07 16:53] LABS: POC Glucose,Bedside 252 (70-110)
--- NOTE | 2025-04-07 18:21 | EXP.ACUTE.PN ---
Subjective *Date: 04/07/25 *Time: 19:23 Interval history: On room air this morning, wore 2 L overnight. Diuresing well. -1.5 L since admission. Spotted well to transfusion, hemoglobin improved to 9.2. Denies chest pain. No nausea or vomiting. Medical Exam Vital signs and Labs for Last 24 Hours: Vital Signs Temp Pulse Pulse Resp BP BP Pulse Ox 04/07/25 17:00 04/07/25 16:00 90 04/07/25 16:00 97.7 F 89 13 114/65 95 04/07/25 15:00 04/07/25 14:05 87 18 99/55 L 96 04/07/25 14:05 04/07/25 13:00 04/07/25 12:00 80 04/07/25 11:38 97.8 F 86 16 100/68 L 98 04/07/25 11:00 04/07/25 09:00 04/07/25 08:00 80 04/07/25 08:00 04/07/25 08:00 98 F 82 16 120/71 91 L 04/07/25 07:16 98.1 F 80 18 109/62 L 97 04/07/25 06:43 04/07/25 06:14 98 F 82 16 117/72 96 04/07/25 05:32 98 F 80 16 113/67 98 04/07/25 05:00 04/07/25 04:32 98 F 81 17 110/73 98 04/07/25 04:17 98 F 80 16 100/57 L 98 04/07/25 04:02 98 F 85 16 99/50 L 96 04/07/25 04:00 70 04/07/25 04:00 98.0 F 80 17 96/45 L 97 04/07/25 03:47 98 F 79 17 95/62 L 94 L 04/07/25 03:42 97.9 F 71 18 109/57 L 96 04/07/25 03:37 98 F 82 16 96/45 L 96 04/07/25 03:30 98.0 F 79 17 97/58 L 96 04/07/25 03:00 04/07/25 01:00 04/07/25 00:00 80 04/07/25 00:00 98.1 F 86 13 111/64 97 04/06/25 23:00 04/06/25 22:10 98.0 F 80 18 106/57 L 98 04/06/25 21:13 98.2 F 83 16 104/67 L 97 04/06/25 21:00 04/06/25 20:15 98.2 F 81 17 105/63 L 99 04/06/25 20:00 80 04/06/25 20:00 04/06/25 20:00 97.7 F 82 14 108/69 L 99 04/06/25 19:15 98.2 F 82 16 94/60 L 97 04/06/25 19:00 97.9 F 80 16 92/65 L 97 04/06/25 19:00 97.9 F 80 16 92/65 L 97 04/06/25 18:45 98.0 F 82 16 100/64 L 97 04/06/25 18:38 04/06/25 18:30 98.1 F 80 14 103/57 L 97 04/06/25 18:25 98.0 F 80 16 95/53 L 97 O2 Del Method O2 Flow Rate 04/07/25 17:00 Nasal Cannula 2 04/07/25 16:00 04/07/25 16:00 Nasal Cannula 2 04/07/25 15:00 Nasal Cannula 2 04/07/25 14:05 Nasal Cannula 2 04/07/25 14:05 Nasal Cannula 2 04/07/25 13:00 Nasal Cannula 2 04/07/25 12:00 04/07/25 11:38 Nasal Cannula 04/07/25 11:00 Nasal Cannula 2 04/07/25 09:00 Nasal Cannula 2 04/07/25 08:00 04/07/25 08:00 Nasal Cannula 2 04/07/25 08:00 Room Air 04/07/25 07:16 04/07/25 06:43 Nasal Cannula 2 04/07/25 06:14 04/07/25 05:32 04/07/25 05:00 Nasal Cannula 2 04/07/25 04:32 04/07/25 04:17 04/07/25 04:02 04/07/25 04:00 04/07/25 04:00 Nasal Cannula 2 04/07/25 03:47 04/07/25 03:42 04/07/25 03:37 04/07/25 03:30 04/07/25 03:00 Nasal Cannula 2 04/07/25 01:00 Nasal Cannula 2 04/07/25 00:00 04/07/25 00:00 Nasal Cannula 04/06/25 23:00 Room Air 04/06/25 22:10 04/06/25 21:13 04/06/25 21:00 Nasal Cannula 2 04/06/25 20:15 04/06/25 20:00 04/06/25 20:00 Nasal Cannula 2 04/06/25 20:00 Nasal Cannula 04/06/25 19:15 04/06/25 19:00 04/06/25 19:00 04/06/25 18:45 04/06/25 18:38 Room Air 04/06/25 18:30 04/06/25 18:25 Intake and Output 04/07/25 04/07/25 04/07/25 07:59 15:59 23:59 Intake Total 250 / 1030 540 / 1030 240 / 1030 Output Total 1000 / 1550 350 / 1550 200 / 1550 Balance -750 / -520 190 / -520 40 / -520 Intake: Intake, Oral Amount 540 / 780 240 / 780 Intake (Blood Product) Amt 250 / 250 Red Blood Cells Unit 250 / 250 [id number] Output: Output, Urine Amount 1000 / 1550 350 / 1550 200 / 1550 Other: Number of Voids 1 Number of Unmeasured Voids 0 Weight 81.783 kg Patient Weight 04/07/25 23:59 Weight 81.783 kg Laboratory Results - last 24 hr 04/06/25 07:55: Blood Type O Positive, Antibody Screen Negative, Crossmatch (AHG) See Detail 04/06/25 20:08: POC Glucose 204 H 04/06/25 23:40: Hgb 8.4 L, Hct 26.9 L, Sodium 131 L, Potassium 4.5, Chloride 94 L, Carbon Dioxide 29, Anion Gap 12.5, BUN 87 H, Creatinine 3.50 H D, Estimated Creat Clear 22, Estimated GFR 13 L*, Est GFR ( Amer) 16 L* D, Glucose 182 H D, Calcium 9.0 04/07/25 05:14: POC Glucose 234 H 04/07/25 07:00: WBC 7.1, RBC 3.30 L D, Hgb 9.4 L D, Hct 30.4 L, MCV 92.1, MCH 28.5, MCHC 30.9 L, RDW 19.7 H, Plt Count 220, MPV 9.6, Neut % (Auto) 83.7 H, Lymph % (Auto) 2.4 L, [place] % (Auto) 10.4 H, Eos % (Auto) 2.3, Baso % (Auto) 0.6, Neut # (Auto) 6.0, Lymph # (Auto) 0.2 L, [place] # (Auto) 0.7, Eos # (Auto) 0.2, Baso # (Auto) 0.0, Total Counted 100, Neutrophils % (Manual) 90 H, Lymphocytes % (Manual) 2 L, Monocytes % (Manual) 8, Platelet Estimate Normal, RBC Morphology Not Reportable, Hypochromasia 1+, Macrocytosis 1+, Ovalocytes 1+, PT 25.0 H, INR 2.40 H, Sodium 129 L, Potassium 4.3, Chloride 93 L, Carbon Dioxide 30, Anion Gap 10.3, BUN 89 H, Creatinine 2.80 H, Estimated Creat Clear 27, Estimated GFR 17 L*, Est GFR ( Amer) 21 L D, Glucose 185 H, Calcium 9.1, Magnesium 2.7 H, Total Bilirubin 1.3, AST 29, ALT 18, Alkaline Phosphatase 115, Total Protein 6.8, Albumin 4.1, Globulin 2.7, Albumin/Globulin Ratio 1.5 04/07/25 08:40: Hgb 9.3 L, Hct 30.3 L 04/07/25 16:45: POC Glucose 252 H I & O for Labs for Last 24 Hours: Intake & Output 04/04/25 04/05/25 04/06/25 04/07/25 23:59 23:59 23:59 23:59 Intake Total 120 / 360 1090 / 1090 1030 / 1030 Output Total 200 / 900 1700 / 1700 1550 / 1550 Balance -80 / -540 -610 / -610 -520 / -520 Weight 83.489 kg 81.73 kg 81.783 kg Constitutional: Present mild distress, obese, chronically ill appearing and cooperative Head: Present atraumatic and normocephalic Respiratory: Present rhonchi and normal respiratory effort; Absent wheezes or crackles Cardiac: Present Irregularly Regular and Systolic Murmur (mechanical click) GI: Present soft and normal bowel sounds; Absent distention or tenderness Extremities: Present normal inspection, full ROM and edema (Trace to knees, intervally improved) Skin: Present intact; Absent erythema Neuro: Present Grossly Intact, alert, awake, oriented x 3 and moves all extremities Assessment and Plan *Assessment and plan (1) Acute on chronic HFrEF (heart failure with reduced ejection fraction): Status: Acute Category: Medical Code(s): I50.23 - Acute on chronic systolic (congestive) heart failure (2) Iron deficiency anemia: Status: Acute Category: Medical Code(s): D50.9 - Iron deficiency anemia, unspecified (3) Anticoagulation goal of INR 2.5 to 3.5: Status: Acute Category: Medical Code(s): Z51.81 - Encounter for therapeutic drug level monitoring; Z79.01 - superintendent terminal (current) use of anticoagulants (4) Presence of biventricular AICD: Status: Acute Category: Surgical Code(s): Z95.810 - Presence of automatic (implantable) cardiac defibrillator (5) History of mitral valve replacement with mechanical valve: Status: Acute Category: Surgical Code(s): Z95.2 - Presence of prosthetic heart valve (6) CKD (chronic kidney disease) stage 4, GFR 15-29 ml/min: Status: Acute Category: Medical Code(s): N18.4 - Chronic kidney disease, stage 4 (severe) (7) Pulmonary hypertension: Status: Suspected Category: Medical Code(s): I27.20 - Pulmonary hypertension, unspecified (8) Diabetes mellitus: Status: Acute Qualifiers: Diabetes mellitus complication status: without complication Diabetes mellitus type: type 1 Qualified Code(s): E10.9 - Type 1 diabetes mellitus without complications Category: Medical Code(s): E11.9 - Type 2 diabetes mellitus without complications (9) Atrial fibrillation, chronic: Status: Acute Category: Medical Code(s): I48.20 - Chronic atrial fibrillation, unspecified (10) COPD (chronic obstructive pulmonary disease): Status: Acute Qualifiers: COPD type: unspecified COPD Qualified Code(s): J44.9 - Chronic obstructive pulmonary disease, unspecified Category: Medical Code(s): J44.9 - Chronic obstructive pulmonary disease, unspecified (11) GERD (gastroesophageal reflux disease): Status: Acute Qualifiers: Esophagitis presence: esophagitis presence not specified Qualified Code(s): K21.9 - Gastro-esophageal reflux disease without esophagitis Category: Medical Code(s): K21.9 - Gastro-esophageal reflux disease without esophagitis (12) HTN (hypertension): Status: Acute Qualifiers: Hypertension type: unspecified Qualified Code(s): I10 - Essential (primary) hypertension Category: Medical Code(s): I10 - Essential (primary) hypertension Plan Irina Costa is a 59-year-old female with a history of autoimmune hemolytic anemia, mechanical mitral valve, HFrEF, chronic anticoagulation, hypertension, chronic A-fib. Presented to cardiology clinic and was found to be in increased respiratory distress with increased swelling in her legs. Concern for HFrEF exacerbation. Discussed case with cardiology, request admission for diuresis and further workup including right heart cath. I agreed to admit for further care. Initiated on Bumex. Showing some response to diuresis. Negative at least 1 L. Continues to require inpatient care. Problems addressed as follows: Acute on chronic HFrEF Mechanical mitral valve Chronic A-fib - Continue warfarin for goal INR 2.5-3.5. INR 2.4 this morning. Repeat level ordered for the morning. - Repeat echo obtained, previous EF of 33% on cardiac MRI. Repeat shows EF of 15 to 20%. Elevated RVSP. - BiV pacemaker placed 07/11/2024. - CardioMEMS in place but no longer transmitting information - Continue amiodarone 200 mg daily, metolazone 2.5 mg daily, spironolactone 50 mg daily. Holding beta-melany at this time -Extensive discussion with cardiology today, recommend initiating nitroprusside drip at 0.5 mcg and Bumex drip at 1 mg/h. Proceed with aggressive diuresis to optimize fluid status TRISTAN on CKD - Sodium 129, chloride 93, magnesium 2.7 and potassium 4.3. BUN 89, creatinine 2.8. Baseline 2.1. - Repeat BMP ordered for this evening. Repeat CBC, CMP, magnesium ordered for the morning. #Chronic autoimmune hemolytic anemia - Status post Venofer 200 mg once last night -Transfusion threshold hemoglobin less than 9, improved to 9.2 this morning after receiving 3 units packed red blood cells over the past 24 hours. #Type 2 diabetes ? Hemoglobin A1c 7.9% ? LDSSI, ACHS glucose checks. - Continue home insulin glargine 14 units nightly, holding Jardiance in the setting of worsening kidney function Chronic pain continue oxycodone 10 mg 4 times a day as needed for severe pain Hypothyroid: Continue levothyroxine 25 mcg daily Depression: Continue Cymbalta 60 mg nightly, continue Xanax 0.5 mg 3 times a day as needed for anxiety Mechanical mitral valve-Continue Coumadin therapy Chronic atrial fibrillation-rate controlled. Continue home amiodarone. Hold home warfarin. DNR DVT prophylaxis: Continue warfarin per home regimen ICU/Critical care attestation This patient is critically ill with 35 minutes devoted solely to this patient managing life/organ supporting interventions that required physician assessment. This includes time spent making adjustments in ventilator settings, IV fluid administration, titration of pressors, adjustments of medications, discussion of patient with consultants and other care providers as well as updating patient and/or family (if patient by virtue of his/her condition is unable to participate in decision making). This does not include time spent performing separately billed procedures. Time is not concurrent with that of other providers.
[2025-04-07 18:22] LABS: Chloride 92 mmol/L (98-107); Potassium 4.3 mmoL/L (3.5-5.1); Sodium 132 mmol/L (136-145)
[2025-04-07 18:25] LABS: Anion Gap 14.3 mEq/L (5-15); Calcium 9.2 mg/dl (8.4-10.2); Carbon Dioxide 30 mmol/L (22.0-30.0); Creatinine Clearance Estimated 23 mL/min (50-200); Estimated Glomerular Filt Rate 14 ml/min (>60); GFR (African American) 17 ML/MIN (>60); Glucose 185 mg/dl (74-100)
[2025-04-07 18:34] LABS: Blood Urea Nitrogen 88 mg/dl (7-17)
[2025-04-07] MEDS: PANTOPRAZOLE 40MG TABLET 40 MG PO (21:51)
[2025-04-07] MEDS: INSULIN GLARGINE 100 UNITS/ML 3ML FLEXPEN 14 UNIT SUBCUT (21:51)
[2025-04-07] MEDS: DULOXETINE 30MG CAPSULE.DR 60 MG PO (21:52)
[2025-04-08] VITALS (16 sets, daily range): BP systolic 82–122; BP diastolic 41–80; PULSE 90–112; RESP 10–24; TEMP 36.6–36.9; O2SAT 91–98; BMI 30.7
[2025-04-08 06:44] LABS: Basophils % 0.6 % (0.1-2.0); Eosinophils # 0.2 Kmm3 (0.0-0.4); Eosinophils % 2.9 % (0.1-12.0); Hematocrit 29.9 % (37.0-47.0); Immature Granulocytes # 0.03 10^3uL; Immature Granulocytes % 0.5 %; Lymphocytes # 0.2 K/mm3 (0.7-4.5); Lymphocytes % 3.2 % (10-50); Mean Corpuscular HGB Conc 30.1 g/dL (31.8-35.4); Mean Corpuscular Hemoglobin 28.2 pg (27.0-31.2); Mean Corpuscular Volume 93.7 fl (81-99); Mean Platelet Volume 9.4 fl (7.4-10.4); Monocytes # 0.8 K/mm3 (0.1-1.0); Monocytes % 12.7 % (1.7-9.3); Neutrophils # 5.2 K/mm3 (1.8-7.8); Neutrophils % 80.1 % (37.0-80.0); Nucleated Red Blood Cells # 0 10^3/uL; Nucleated Red Blood Cells % 0 %; Platelet Count 196 K/mm3 (142-424); Red Blood Count 3.19 M/mm3 (4.20-5.40); Red Cell Distribution Width 19.9 % (11.5-17.5); Red Cell Distribution Width-SD 67.9 fL; White Blood Count 6.5 K/mm3 (4.8-10.8)
[2025-04-08 06:50] LABS: MANUAL DIFFERENTIAL MANUAL DIFFERENTIAL (MANUAL DIFF)
[2025-04-08 06:51] LABS: Chloride 90 mmol/L (98-107)
[2025-04-08 06:52] LABS: Albumin Level 4.1 g/dl (3.5-5.0); Potassium 3.7 mmoL/L (3.5-5.1); Sodium 134 mmol/L (136-145)
[2025-04-08 06:54] LABS: Alanine Aminotransferase 18 U/L (12-78); Creatinine Clearance Estimated 24 mL/min (50-200); Estimated Glomerular Filt Rate 15 ml/min (>60); GFR (African American) 18 ML/MIN (>60); Magnesium 2.1 mg/dl (1.6-2.3)
[2025-04-08 06:55] LABS: Albumin/Globulin Ratio 1.5 (1.1-1.8); Alkaline Phosphatase 111 U/L (38-126); Anion Gap 14.7 mEq/L (5-15); Aspartate Amino Transferase 31 U/L (14-36); Bilirubin,Total 1.4 mg/dl (0.2-1.3); Calcium 9.2 mg/dl (8.4-10.2); Carbon Dioxide 33 mmol/L (22.0-30.0); Globulin 2.7 g/dL (1.3-3.2); Glucose 179 mg/dl (74-100); Total Protein,Serum 6.8 g/dl (6.3-8.2)
[2025-04-08 06:57] LABS: INR 3.04 (0.9-1.1); Prothrombin Time 31.1 seconds (10.1-12.5)
[2025-04-08] MEDS: LEVOTHYROXINE 25MCG (0.025MG) TAB 25 MCG PO (07:03)
[2025-04-08 07:05] LABS: Blood Urea Nitrogen 84 mg/dl (7-17)
[2025-04-08] MEDS: BUMETANIDE 10 MG in 0.9 % SODIUM CHLORIDE 60 ML IV (08:44)
[2025-04-08] MEDS: NITROPRUSSIDE SODIUM 50 MG in DEXTROSE 5 % IN WATER 250 ML 12.37 MG IV (08:47)
[2025-04-08 08:55] LABS: Anisocytosis 1+; Eosinophils % 2 % (0-3); Hypochromasia 2+; Lymphocytes % 7 % (10-50); Monocytes % 6 % (2-9); Neutrophils % 85 % (42-76); Platelet Estimate Normal; Total Cells Counted 100
[2025-04-08] MEDS: metOLazone 2.5MG TABLET 2.5 MG PO (09:15)
[2025-04-08] MEDS: AMIODARONE 200MG TABLET 200 MG PO (09:15)
[2025-04-08] MEDS: SPIRONOLACTONE 25MG TABLET 50 MG PO (09:16)
[2025-04-08] MEDS: OXYCODONE 10MG W/APAP 325MG TABLET 1 EACH PO ×3 (09:19→23:20)
[2025-04-08] MEDS: WARFARIN 2MG TABLET 2 MG PO (10:58)
[2025-04-08] MEDS: BUMETANIDE 10 MG in 0.9 % SODIUM CHLORIDE 60 ML 20 MG IV ×3 (14:26→23:25)
--- NOTE | 2025-04-08 15:56 | P.PN_ITS ---
Subjective *Date: 04/08/25 *Time: 18:10 Interval history: Feeling okay this morning . On 3 L overnight. Having minimal response to diuresis. Will increase drip today. Denies chest pain or shortness of breath. Poor sleep overnight due to interruption from other patients and noises in the hospital. Afebrile. Alert and oriented on exam Medical Exam Vital signs and Labs for Last 24 Hours: Vital Signs Temp Pulse Pulse Resp BP BP Pulse Ox 04/08/25 15:00 04/08/25 14:00 98 H 16 110/64 95 04/08/25 14:00 98 H 16 110/64 95 04/08/25 12:47 04/08/25 12:01 97 H 109/67 L 95 04/08/25 12:00 98.4 F 101 H 20 109/67 L 95 04/08/25 12:00 112 H 04/08/25 11:00 04/08/25 10:00 110 H 24 120/63 96 04/08/25 10:00 104 H 23 120/64 96 04/08/25 09:00 04/08/25 08:00 97 H 96 04/08/25 08:00 97 H 04/08/25 08:00 98.0 F 90 17 105/59 L 98 04/08/25 08:00 98.0 F 90 17 105/59 L 98 04/08/25 07:00 04/08/25 06:00 96 H 10 L 102/57 L 97 04/08/25 05:00 04/08/25 04:00 100 H 04/08/25 04:00 98.1 F 100/70 L 04/08/25 04:00 92 H 12 95 04/08/25 03:00 04/08/25 02:00 91 L 04/08/25 02:00 95 H 14 96/42 L 97 04/08/25 01:00 04/08/25 00:00 100 H 04/08/25 00:00 90 11 L 82/41 L 95 04/07/25 23:00 04/07/25 22:00 88 13 99/61 L 96 04/07/25 21:00 04/07/25 20:40 97.8 F 81 17 121/78 95 04/07/25 20:00 60 04/07/25 20:00 82 96 04/07/25 18:51 04/07/25 17:00 04/07/25 16:00 90 04/07/25 16:00 97.7 F 89 13 114/65 95 O2 Del Method O2 Flow Rate 04/08/25 15:00 Nasal Cannula 2 04/08/25 14:00 Nasal Cannula 2 04/08/25 14:00 Nasal Cannula 2 04/08/25 12:47 Nasal Cannula 2 04/08/25 12:01 Nasal Cannula 2 04/08/25 12:00 Nasal Cannula 2 04/08/25 12:00 04/08/25 11:00 Nasal Cannula 2 04/08/25 10:00 Nasal Cannula 3 04/08/25 10:00 Nasal Cannula 3 04/08/25 09:00 Nasal Cannula 3 04/08/25 08:00 Nasal Cannula 3 04/08/25 08:00 04/08/25 08:00 Nasal Cannula 3 04/08/25 08:00 Nasal Cannula 3 04/08/25 07:00 Nasal Cannula 3 04/08/25 06:00 04/08/25 05:00 Nasal Cannula 3 04/08/25 04:00 04/08/25 04:00 04/08/25 04:00 04/08/25 03:00 Nasal Cannula 3 04/08/25 02:00 Nasal Cannula 3 04/08/25 02:00 Nasal Cannula 3 04/08/25 01:00 Nasal Cannula 2 04/08/25 00:00 04/08/25 00:00 04/07/25 23:00 Nasal Cannula 2 04/07/25 22:00 Nasal Cannula 2 04/07/25 21:00 Nasal Cannula 2 04/07/25 20:40 04/07/25 20:00 04/07/25 20:00 Nasal Cannula 2 04/07/25 18:51 Nasal Cannula 2 04/07/25 17:00 Nasal Cannula 2 04/07/25 16:00 04/07/25 16:00 Nasal Cannula 2 Intake and Output 04/07/25 04/08/25 04/08/25 23:59 07:59 15:59 Intake Total 316.667 / 1106.667 916.783 / 916.783 Output Total 200 / 1550 1999 Balance 116.667 / -443.333 0 / -1083.217 -1083.217 / -1083.217 Intake: Intake, Oral Amount 240 / 780 590 / 590 Intake, Total IV Amount 76.667 / 76.667 326.783 / 326.783 Output: Output, Urine Amount 200 / 1550 1999 Other: Number of Voids 2 Number of Unmeasured Voids 1 2 Weight 81.737 kg Patient Weight 04/08/25 23:59 Weight 81.737 kg Laboratory Results - last 24 hr 04/07/25 16:45: POC Glucose 252 H 04/07/25 18:00: Sodium 132 L, Potassium 4.3, Chloride 92 L, Carbon Dioxide 30, Anion Gap 14.3, BUN 88 H, Creatinine 3.30 H, Estimated Creat Clear 23, Estimated GFR 14 L*, Est GFR ( Amer) 17 L*, Glucose 185 H, Calcium 9.2 04/08/25 06:15: WBC 6.5, RBC 3.19 L, Hgb 9.0 L, Hct 29.9 L, MCV 93.7, MCH 28.2, MCHC 30.1 L, RDW 19.9 H, Plt Count 196, MPV 9.4, Neut % (Auto) 80.1 H, Lymph % (Auto) 3.2 L, Randall % (Auto) 12.7 H, Eos % (Auto) 2.9, Baso % (Auto) 0.6, Neut # (Auto) 5.2, Lymph # (Auto) 0.2 L, Randall # (Auto) 0.8, Eos # (Auto) 0.2, Baso # (Auto) 0.0, Total Counted 100, Neutrophils % (Manual) 85 H, Lymphocytes % (Manual) 7 L, Monocytes % (Manual) 6, Eosinophils % (Manual) 2, Platelet Estimate Normal, Hypochromasia 2+, Anisocytosis 1+, PT 31.1 H, INR 3.04 H, Sodium 134 L, Potassium 3.7, Chloride 90 L, Carbon Dioxide 33 H, Anion Gap 14.7, BUN 84 H, Creatinine 3.10 H, Estimated Creat Clear 24, Estimated GFR 15 L*, Est GFR ( Amer) 18 L*, Glucose 179 H, Calcium 9.2, Magnesium 2.1 D, Total Bilirubin 1.4 H, AST 31, ALT 18, Alkaline Phosphatase 111, Total Protein 6.8, Albumin 4.1, Globulin 2.7, Albumin/Globulin Ratio 1.5 I & O for Labs for Last 24 Hours: Intake & Output 04/05/25 04/06/25 04/07/25 04/08/25 23:59 23:59 23:59 23:59 Intake Total 120 / 360 1090 / 1090 1106.667 / 1106.667 916.783 / 916.783 Output Total 200 / 900 1700 / 1700 1550 / 1550 1999 Balance -80 / -540 -610 / -610 -443.333 / -443.333 -1083.217 / -1083.217 Weight 83.489 kg 81.73 kg 81.783 kg 81.737 kg Constitutional: Present mild distress, obese, chronically ill appearing and cooperative Head: Present atraumatic and normocephalic Respiratory: Present rhonchi and normal respiratory effort; Absent wheezes or crackles Cardiac: Present Irregularly Regular and Systolic Murmur (mechanical click) GI: Present soft and normal bowel sounds; Absent distention or tenderness Extremities: Present normal inspection, full ROM and edema (Trace to knees, inte rvally improved) Skin: Present intact; Absent erythema Neuro: Present Grossly Intact, alert, awake, oriented x 3 and moves all extremities Assessment and Plan *Assessment and plan (1) Acute on chronic HFrEF (heart failure with reduced ejection fraction): Status: Acute Category: Medical Code(s): I50.23 - Acute on chronic systolic (congestive) heart failure (2) Iron deficiency anemia: Status: Acute Category: Medical Code(s): D50.9 - Iron deficiency anemia, unspecified (3) Anticoagulation goal of INR 2.5 to 3.5: Status: Acute Category: Medical Code(s): Z51.81 - Encounter for therapeutic drug level monitoring; Z79.01 - care home (current) use of anticoagulants (4) Presence of biventricular AICD: Status: Acute Category: Surgical Code(s): Z95.810 - Presence of automatic (implantable) cardiac defibrillator (5) History of mitral valve replacement with mechanical valve: Status: Acute Category: Surgical Code(s): Z95.2 - Presence of prosthetic heart valve (6) CKD (chronic kidney disease) stage 4, GFR 15-29 ml/min: Status: Acute Category: Medical Code(s): N18.4 - Chronic kidney disease, stage 4 (severe) (7) Pulmonary hypertension: Status: Suspected Category: Medical Code(s): I27.20 - Pulmonary hypertension, unspecified (8) Diabetes mellitus: Status: Acute Qualifiers: Diabetes mellitus complication status: without complication Diabetes mellitus type: type 1 Qualified Code(s): E10.9 - Type 1 diabetes mellitus without complications Category: Medical Code(s): E11.9 - Type 2 diabetes mellitus without complications (9) Atrial fibrillation, chronic: Status: Acute Category: Medical Code(s): I48.20 - Chronic atrial fibrillation, unspecified (10) COPD (chronic obstructive pulmonary disease): Status: Acute Qualifiers: COPD type: unspecified COPD Qualified Code(s): J44.9 - Chronic obstructive pulmonary disease, unspecified Category: Medical Code(s): J44.9 - Chronic obstructive pulmonary disease, unspecified (11) GERD (gastroesophageal reflux disease): Status: Acute Qualifiers: Esophagitis presence: esophagitis presence not specified Qualified Code(s): K21.9 - Gastro-esophageal reflux disease without esophagitis Category: Medical Code(s): K21.9 - Gastro-esophageal reflux disease without esophagitis (12) HTN (hypertension): Status: Acute Qualifiers: Hypertension type: unspecified Qualified Code(s): I10 - Essential (primary) hypertension Category: Medical Code(s): I10 - Essential (primary) hypertension Plan Irina Costa is a 59-year-old female with a history of autoimmune hemolytic anemia, mechanical mitral valve, HFrEF, chronic anticoagulation, hypertension, chronic A-fib. Presented to cardiology clinic and was found to be in increased respiratory distress with increased swelling in her legs. Concern for HFrEF exacerbation. Discussed case with cardiology, request admission for diuresis and further workup including right heart cath. I agreed to admit for further care. Showing some response to diuresis. Negative only 1 L since admission. Increase Bumex drip. Continues to require inpatient care. Problems addressed as follows: Acute on chronic HFrEF Mechanical mitral valve Chronic A-fib - Continue warfarin for goal INR 2.5-3.5. INR 3 this morning. Repeat level ordered for the morning. - Previous EF of 33% on cardiac MRI. Repeat shows EF of 15 to 20%. Elevated RVSP. - BiV pacemaker placed 07/11/2024. - CardioMEMS in place but no longer transmitting information - Continue amiodarone 200 mg daily, metolazone 2.5 mg daily, spironolactone 50 mg daily. Holding beta-melany at this time - Continuing nitroprusside drip at 0.5 mcg and Bumex increased to 2 mg/h. Strict monitoring of output. TRISTAN on CKD - Sodium 134, chloride 90. Potassium 3.7, magnesium 2.1. BUN remains elevated 84, creatinine 3.1. - Repeat BMP ordered for this evening. Repeat CBC, CMP, magnesium ordered for the morning. #Chronic autoimmune hemolytic anemia - Status post Venofer 200 mg once last night -Transfusion threshold hemoglobin less than 9, improved to 9.2 this morning after receiving 3 units packed red blood cells over the past 24 hours. #Type 2 diabetes ? Hemoglobin A1c 7.9% ? LDSSI, ACHS glucose checks. -Morning glucose 179 - Continue home insulin glargine 14 units nightly, holding Jardiance in the setting of worsening kidney function Chronic pain continue oxycodone 10 mg 4 times a day as needed for severe pain Hypothyroid: Continue levothyroxine 25 mcg daily Depression: Continue Cymbalta 60 mg nightly, continue Xanax 0.5 mg 3 times a day as needed for anxiety Mechanical mitral valve-Continue Coumadin therapy Chronic atrial fibrillation-rate controlled. Continue home amiodarone. Hold home warfarin. DNR DVT prophylaxis: Continue warfarin per home regimen ICU/Critical care attestation This patient is critically ill with 35 minutes devoted solely to this patient managing life/organ supporting interventions that required physician assessment. This includes time spent making adjustments in ventilator settings, IV fluid administration, titration of pressors, adjustments of medications, discussion of patient with consultants and other care providers as well as updating patient and/or family (if patient by virtue of his/her condition is unable to participate in decision making). This does not include time spent performing separately billed procedures. Time is not concurrent with that of other provide rs.
[2025-04-08 18:34] LABS: Chloride 89 mmol/L (98-107); Potassium 4.1 mmoL/L (3.5-5.1); Sodium 131 mmol/L (136-145)
[2025-04-08 18:37] LABS: Anion Gap 13.1 mEq/L (5-15); Carbon Dioxide 33 mmol/L (22.0-30.0); Creatinine Clearance Estimated 24 mL/min (50-200); Estimated Glomerular Filt Rate 15 ml/min (>60); GFR (African American) 18 ML/MIN (>60); Glucose 239 mg/dl (74-100)
[2025-04-08 18:39] LABS: Blood Urea Nitrogen 82 mg/dl (7-17)
[2025-04-08] MEDS: DULOXETINE 30MG CAPSULE.DR 60 MG PO (20:37)
[2025-04-08] MEDS: PANTOPRAZOLE 40MG TABLET 40 MG PO (20:37)
[2025-04-08 20:43] LABS: POC Glucose,Bedside 197 (70-110)
[2025-04-08 20:43] LABS: POC Glucose,Bedside 151 (70-110)
[2025-04-08 20:43] LABS: POC Glucose,Bedside 271 (70-110)
[2025-04-08 20:43] LABS: POC Glucose,Bedside 183 (70-110)
[2025-04-08] MEDS: INSULIN GLARGINE 100 UNITS/ML 3ML FLEXPEN 14 UNIT SUBCUT (20:46)
[2025-04-09] VITALS (13 sets, daily range): BP systolic 100–124; BP diastolic 52–76; PULSE 101–122; RESP 10–22; TEMP 36.6–36.9; O2SAT 86–98; BMI 28.6
[2025-04-09] MEDS: NITROPRUSSIDE SODIUM 50 MG in DEXTROSE 5 % IN WATER 250 ML 12.37 MG IV ×2 (01:03→19:57)
--- NOTE | 2025-04-09 02:00 | ECG_ITS ---
APPROVED REPORT Exam: Resting ECG HR:104 bpm ECG Measurements Heart Rate 104 AXES QRSd 142 QRS 110 QT 381 T -11 QTc 442 Conclusion ATRIAL FIBRILLATION WITH RAPID VENTRICULAR RESPONSE RIGHT AXIS DEVIATION [QRS AXIS > 100] INTRAVENTRICULAR CONDUCTION DELAY [130+ ms QRS DURATION] ABNORMAL ECG UNCONFIRMED REPORT Electronically signed by : Reji Castro MD 04/09/2025 07:33:54
[2025-04-09 02:10] LABS: POC Glucose,Bedside 220 (70-110)
[2025-04-09] MEDS: BUMETANIDE 10 MG in 0.9 % SODIUM CHLORIDE 60 ML 20 MG IV ×5 (04:01→21:06)
[2025-04-09] MEDS: LEVOTHYROXINE 25MCG (0.025MG) TAB 25 MCG PO (06:01)
--- NOTE | 2025-04-09 06:35 | PC.NURSE ---
pt alert and oriented, pt sitting up on the side of the bed at this time. pt is still on bumex drip at 20 and nipride drip 0.5mcg. Pt has been paced on the monitor. Pt has had runs of afib and has also been tachycardic. Pt has had approximately 2000 output. pt complained of a sore throat and wanted humidifed oxygen. pt has just not felt the best. she feels achy all over. when pt gets up her heart rate does go up and her oxygen drops. pt still does not want to use a purewick wants to use bedside commode. pt had a partial bath this am.
[2025-04-09 06:37] LABS: Basophils % 0.5 % (0.1-2.0); Eosinophils # 0.2 Kmm3 (0.0-0.4); Eosinophils % 2.7 % (0.1-12.0); Hematocrit 29.7 % (37.0-47.0); Immature Granulocytes # 0.03 10^3uL; Immature Granulocytes % 0.4 %; Lymphocytes # 0.2 K/mm3 (0.7-4.5); Lymphocytes % 2.7 % (10-50); Mean Corpuscular HGB Conc 30.3 g/dL (31.8-35.4); Mean Corpuscular Hemoglobin 28.2 pg (27.0-31.2); Mean Corpuscular Volume 93.1 fl (81-99); Mean Platelet Volume 9.8 fl (7.4-10.4); Monocytes # 0.8 K/mm3 (0.1-1.0); Monocytes % 10.9 % (1.7-9.3); Neutrophils # 6.2 K/mm3 (1.8-7.8); Neutrophils % 82.8 % (37.0-80.0); Nucleated Red Blood Cells # 0 10^3/uL; Nucleated Red Blood Cells % 0 %; Platelet Count 202 K/mm3 (142-424); Red Blood Count 3.19 M/mm3 (4.20-5.40); Red Cell Distribution Width 19.6 % (11.5-17.5); Red Cell Distribution Width-SD 65.1 fL; White Blood Count 7.5 K/mm3 (4.8-10.8)
[2025-04-09 06:40] LABS: MANUAL DIFFERENTIAL MANUAL DIFFERENTIAL (MANUAL DIFF)
[2025-04-09 06:50] LABS: INR 3.21 (0.9-1.1); Prothrombin Time 32.7 seconds (10.1-12.5)
[2025-04-09 06:53] LABS: Chloride 87 mmol/L (98-107)
[2025-04-09 06:54] LABS: Albumin Level 4.2 g/dl (3.5-5.0); Potassium 3.6 mmoL/L (3.5-5.1); Sodium 132 mmol/L (136-145)
[2025-04-09 06:56] LABS: Alanine Aminotransferase 17 U/L (12-78); Alkaline Phosphatase 118 U/L (38-126); Anion Gap 13.6 mEq/L (5-15); Aspartate Amino Transferase 35 U/L (14-36); Bilirubin,Total 1.4 mg/dl (0.2-1.3); Carbon Dioxide 35 mmol/L (22.0-30.0); Creatinine Clearance Estimated 27 mL/min (50-200); Estimated Glomerular Filt Rate 19 ml/min (>60); GFR (African American) 23 ML/MIN (>60); Globulin 2.9 g/dL (1.3-3.2); Total Protein,Serum 7.1 g/dl (6.3-8.2)
[2025-04-09 06:57] LABS: Albumin/Globulin Ratio 1.4 (1.1-1.8); Calcium 9.3 mg/dl (8.4-10.2); Glucose 185 mg/dl (74-100)
[2025-04-09 07:07] LABS: Magnesium 1.9 mg/dl (1.6-2.3)
[2025-04-09 07:09] LABS: Blood Urea Nitrogen 82 mg/dl (7-17)
[2025-04-09 08:48] LABS: Lymphocytes % 1 % (10-50); Monocytes % 12 % (2-9); Neutrophils % 84 % (42-76); Platelet Estimate Normal; Total Cells Counted 100
[2025-04-09 08:49] LABS: Acanthocytes 1+; Anisocytosis 2+; Poikilocytosis 2+; Stomatocytes 1+
[2025-04-09 08:50] LABS: Hypochromasia 1+
[2025-04-09] MEDS: SPIRONOLACTONE 25MG TABLET 50 MG PO (09:01)
[2025-04-09] MEDS: OXYCODONE 10MG W/APAP 325MG TABLET 1 EACH PO ×2 (09:01→20:29)
[2025-04-09] MEDS: AMIODARONE 200MG TABLET 200 MG PO (09:02)
[2025-04-09] MEDS: metOLazone 2.5MG TABLET 2.5 MG PO (09:02)
[2025-04-09] MEDS: WARFARIN 2MG TABLET 2 MG PO (11:45)
[2025-04-09 12:08] LABS: POC Glucose,Bedside 234 (70-110)
[2025-04-09 12:08] LABS: POC Glucose,Bedside 201 (70-110)
--- NOTE | 2025-04-09 16:05 | EXP.CARD.PN ---
Subjective Subjective Date: 04/09/25 Time: 16:05 Principal diagnosis: CHF Interval history: 60-year-old white female with multiple medical problems admitted for congestive heart failure. Over the weekend patient has been started on IV night pride with increasing Bumex dose. She has had a good response with about 3.7 L of urine output at this point during her stay. She states she does feel better with less edema. Heart rate on telemetry is in the 120s and A-fib, which is chronic. Exam Data for Last 24 hours Vital signs and Labs for Last 24 Hours: Temp Pulse Resp BP Pulse Ox O2 Del Method O2 Flow Rate 98.1 F 109 H 20 110/67 95 Nasal Cannula 2 04/09/25 16:00 04/09/25 16:00 04/09/25 16:00 04/09/25 16:00 04/09/25 16:00 04/09/25 16:00 04/09/25 16:00 FiO2 28 04/08/25 18:56 Laboratory Results - last 24 hr 04/07/25 21:38: POC Glucose 151 H 04/08/25 05:34: POC Glucose 183 H 04/08/25 11:06: POC Glucose 271 H 04/08/25 16:39: POC Glucose 197 H 04/08/25 18:10: Sodium 131 L, Potassium 4.1, Chloride 89 L, Carbon Dioxide 33 H, Anion Gap 13.1, BUN 82 H, Creatinine 3.10 H, Estimated Creat Clear 24, Estimated GFR 15 L*, Est GFR ( Amer) 18 L*, Glucose 239 H D, Calcium 9.0 04/08/25 20:45: POC Glucose 220 H 04/09/25 05:22: POC Glucose 201 H 04/09/25 05:30: WBC 7.5, RBC 3.19 L, Hgb 9.0 L, Hct 29.7 L, MCV 93.1, MCH 28.2, MCHC 30.3 L, RDW 19.6 H, Plt Count 202, MPV 9.8, Neut % (Auto) 82.8 H, Lymph % (Auto) 2.7 L, Davidson % (Auto) 10.9 H, Eos % (Auto) 2.7, Baso % (Auto) 0.5, Neut # (Auto) 6.2, Lymph # (Auto) 0.2 L, Davidson # (Auto) 0.8, Eos # (Auto) 0.2, Baso # (Auto) 0.0, Total Counted 100, Neutrophils % (Manual) 84 H, Band Neutrophils % 3.0, Lymphocytes % (Manual) 1 L, Monocytes % (Manual) 12 H, Platelet Estimate Normal, Hypochromasia 1+, Poikilocytosis 2+, Anisocytosis 2+, Stomatocytes 1+, Acanthocytes (Spur) 1+, PT 32.7 H, INR 3.21 H, Sodium 132 L, Potassium 3.6, Chloride 87 L, Carbon Dioxide 35 H, Anion Gap 13.6, BUN 82 H, Creatinine 2.60 H, Estimated Creat Clear 27, Estimated GFR 19 L*, Est GFR ( Amer) 23 L D, Glucose 185 H D, Calcium 9.3, Magnesium 1.9, Total Bilirubin 1.4 H, AST 35, ALT 17, Alkaline Phosphatase 118, Total Protein 7.1, Albumin 4.2, Globulin 2.9, Albumin/Globulin Ratio 1.4 04/09/25 11:19: POC Glucose 234 H I & O for Last 24 hours: Intake & Output 04/07/25 04/08/25 04/09/25 04/10/25 11:59 11:59 11:59 11:59 Intake Total 1100 / 1100 1423.450 / 2121.551 6940.885 / 1572.885 320 / 320 Output Total 1000 / 1000 1850 / 1850 3050 / 3050 1150 / 1150 Balance 100 / 100 -426.550 / -426.550 -1477.115 / -1477.115 -830 / -830 Weight 180 lb 4.8 oz 180 lb 3.2 oz 167 lb 9.6 oz Constitutional Constitutional: no acute distress *Routine Respiratory Exam Respiratory: Present decreased breath sounds; Absent wheezes or crackles *Routine Cardiovascular Exam Cardiovascular: Present tachycardia and irregularly irregular Progress Note: A&P Assessment and plan (1) Acute on chronic HFrEF (heart failure with reduced ejection fraction): Status: Acute (2) Iron deficiency anemia: Status: Acute (3) Anticoagulation goal of INR 2.5 to 3.5: Status: Acute (4) Presence of biventricular AICD: Status: Acute (5) History of mitral valve replacement with mechanical valve: Status: Acute (6) CKD (chronic kidney disease) stage 4, GFR 15-29 ml/min: Status: Acute (7) Pulmonary hypertension: Status: Suspected (8) Diabetes mellitus: Status: Acute (9) Atrial fibrillation, chronic: Status: Acute (10) COPD (chronic obstructive pulmonary disease): Status: Acute (11) GERD (gastroesophageal reflux disease): Status: Acute (12) HTN (hypertension): Status: Acute Assessment and Plan Assessment and Plan for All Diagnoses:: Acute on Chronic HFrEF s/p [employer] and CardioMEMS - Previous echo shows EF 30-35%, mechanical MVR, Severe biatrial dilation, moderate to severe TR - 1 week worsening dyspnea on exertion, lower extremity edema, proBNP 4400, increased congestion noted on [employer] download - Home dose Bumex 2 mg twice daily, she is on 3 mg twice daily here and having good response with 1.5 L diuresed so far - Continue home dose GDMT as tolerated - Likely exacerbated secondary to worsening severe iron deficiency anemia - Echo this admission shows reduced EF to 15 to 20% Paroxysmal atrial fibrillation with RVR - V-paced rhythm here - Continue amiodarone and warfarin Mechanical mitral valve replaced - Normal function per office echo - Continue warfarin Autoimmune hemolytic anemia - Status post port placement - Hemoglobin 7 initially but transfused up to 9 - Iron repletion and blood transfusion this admission CKD 3 - Creatinine 2. 6, baseline 2.0 - Monitor with daily labs Discussed with Dr. Guardado and Dr. Sawyer who wished to proceed with right heart catheterization tomorrow now that the patient's hemoglobin has increased to 9. Further recommendations to follow right heart cath tomorrow
--- NOTE | 2025-04-09 16:28 | P.PN_ITS ---
Subjective *Date: 04/09/25 *Time: 16:28 Interval history: Stable on 2 L oxygen. No nausea or vomiting. States she is feeling a little bit better. Breathing somewhat better. Has put out 4 L of urine in the past 24 hours, -2 L in the past 24 hours. -3 and half liters since admission. T olerating p.o. intake. Feels somewhat crampy in her muscles. Afebrile, alert and oriented x 3 Medical Exam Vital signs and Labs for Last 24 Hours: Vital Signs Temp Pulse Pulse Pulse Resp BP BP 04/09/25 16:00 109 H 04/09/25 16:00 98.1 F 109 H 20 110/67 04/09/25 15:00 04/09/25 14:00 120 H 04/09/25 14:00 119 H 21 109/66 L 04/09/25 12:57 04/09/25 12:00 115 H 04/09/25 12:00 98.3 F 117 H 22 122/71 04/09/25 11:00 04/09/25 10:00 115 H 20 111/68 04/09/25 10:00 04/09/25 09:00 04/09/25 08:00 115 H 04/09/25 08:00 98.2 F 110 H 21 121/69 04/09/25 08:00 98.2 F 112 H 17 121/69 04/09/25 07:55 108 H 18 04/09/25 06:41 04/09/25 06:00 122 H 11 L 115/71 04/09/25 05:00 04/09/25 04:00 113 H 04/09/25 04:00 98 F 112 H 13 101/52 L 04/09/25 03:00 04/09/25 02:00 104 H 04/09/25 02:00 101/63 L 04/09/25 02:00 101 H 10 L 101/63 L 04/09/25 01:00 04/09/25 00:00 119 H 20 101/63 L 04/09/25 00:00 107 H 04/09/25 00:00 97.9 F 101 H 13 101/63 L 04/08/25 23:00 04/08/25 22:00 108 H 11 L 105/68 L 04/08/25 21:00 04/08/25 20:07 99 H 04/08/25 20:01 99/64 L 04/08/25 20:01 108 H 13 04/08/25 20:00 04/08/25 20:00 97.9 F 106 H 11 L 99/64 L 04/08/25 18:56 04/08/25 18:54 04/08/25 18:00 110 H 17 122/78 04/08/25 17:00 Pulse Ox O2 Del Method O2 Flow Rate FiO2 04/09/25 16:00 04/09/25 16:00 95 Nasal Cannula 2 04/09/25 15:00 Nasal Cannula 2 04/09/25 14:00 93 L Nasal Cannula 2 04/09/25 14:00 94 L Nasal Cannula 2 04/09/25 12:57 Nasal Cannula 2 04/09/25 12:00 04/09/25 12:00 96 Nasal Cannula 2 04/09/25 11:00 Nasal Cannula 2 04/09/25 10:00 95 Nasal Cannula 2 04/09/25 10:00 86 L Room Air 04/09/25 09:00 Nasal Cannula 2 04/09/25 08:00 04/09/25 08:00 92 L Nasal Cannula 2 04/09/25 08:00 94 L Nasal Cannula 2 04/09/25 07:55 95 Nasal Cannula 2 04/09/25 06:41 Nasal Cannula 2 04/09/25 06:00 95 Nasal Cannula 2 04/09/25 05:00 Nasal Cannula 2 04/09/25 04:00 04/09/25 04:00 95 Nasal Cannula 2 04/09/25 03:00 Nasal Cannula 2 04/09/25 02:00 93 L Nasal Cannula 2 04/09/25 02:00 04/09/25 02:00 95 Nasal Cannula 2 04/09/25 01:00 Nasal Cannula 2 04/09/25 00:00 95 Nasal Cannula 2 04/09/25 00:00 04/09/25 00:00 95 Nasal Cannula 2 04/08/25 23:00 Nasal Cannula 2 04/08/25 22:00 96 Nasal Cannula 2 04/08/25 21:00 Nasal Cannula 2 04/08/25 20:07 04/08/25 20:01 04/08/25 20:01 95 04/08/25 20:00 95 Nasal Cannula 2 04/08/25 20:00 93 L Nasal Cannula 2 04/08/25 18:56 Nasal Cannula 2 28 04/08/25 18:54 Nasal Cannula 2 04/08/25 18:00 95 Nasal Cannula 2 04/08/25 17:00 Nasal Cannula 2 Intake and Output 04/09/25 04/09/25 04/09/25 07:59 15:59 23:59 Intake Total 409.219 / 1123.219 714 / 1123.219 Output Total 800 / 2350 1550 / 2350 Balance -390.781 / -1226.781 -836 / -1226.781 Intake: Intake, Oral Amount 560 / 560 Intake, Total IV Amount 409.219 / 563.219 154 / 563.219 Bumetanide 10 mg In 0.9 % 50 / 50 Sodium Chloride 60 ml @ 20 mls/ hr IV .Q5H JOEY Rx#:[id number] Nitroprusside Sodium 50 mg In 66 / 66 Dextrose 5 % in Water 250 ml @ 0.5 MCG/KG/MIN 12.366 mls/hr IV .[id number] JOEY Rx#:[id number] Output: Output, Urine Amount 800 / 2350 1550 / 2350 Other: Number of Unmeasured Voids 1 Weight 76.022 kg Patient Weight 04/09/25 23:59 Weight 76.022 kg Laboratory Results - last 24 hr 04/07/25 21:38: POC Glucose 151 H 04/08/25 05:34: POC Glucose 183 H 04/08/25 11:06: POC Glucose 271 H 04/08/25 16:39: POC Glucose 197 H 04/08/25 18:10: Sodium 131 L, Potassium 4.1, Chloride 89 L, Carbon Dioxide 33 H, Anion Gap 13.1, BUN 82 H, Creatinine 3.10 H, Estimated Creat Clear 24, Estimated GFR 15 L*, Est GFR ( Amer) 18 L*, Glucose 239 H D, Calcium 9.0 04/08/25 20:45: POC Glucose 220 H 04/09/25 05:22: POC Glucose 201 H 04/09/25 05:30: WBC 7.5, RBC 3.19 L, Hgb 9.0 L, Hct 29.7 L, MCV 93.1, MCH 28.2, MCHC 30.3 L, RDW 19.6 H, Plt Count 202, MPV 9.8, Neut % (Auto) 82.8 H, Lymph % (Auto) 2.7 L, [place] % (Auto) 10.9 H, Eos % (Auto) 2.7, Baso % (Auto) 0.5, Neut # (Auto) 6.2, Lymph # (Auto) 0.2 L, [place] # (Auto) 0.8, Eos # (Auto) 0.2, Baso # (Auto) 0.0, Total Counted 100, Neutrophils % (Manual) 84 H, Band Neutrophils % 3.0, Lymphocytes % (Manual) 1 L, Monocytes % (Manual) 12 H, Platelet Estimate Normal, Hypochromasia 1+, Poikilocytosis 2+, Anisocytosis 2+, Stomatocytes 1+, Acanthocytes (Spur) 1+, PT 32.7 H, INR 3.21 H, Sodium 132 L, Potassium 3.6, Chloride 87 L, Carbon Dioxide 35 H, Anion Gap 13.6, BUN 82 H, Creatinine 2.60 H, Estimated Creat Clear 27, Estimated GFR 19 L*, Est GFR ( Amer) 23 L D, Glucose 185 H D, Calcium 9.3, Magnesium 1.9, Total Bilirubin 1.4 H, AST 35, ALT 17, Alkaline Phosphatase 118, Total Protein 7.1, Albumin 4.2, Globulin 2.9, Albumin/Globulin Ratio 1.4 04/09/25 11:19: POC Glucose 234 H I & O for Labs for Last 24 Hours: Intake & Output 04/06/25 04/07/25 04/08/25 04/09/25 23:59 23:59 23:59 23:59 Intake Total 1090 / 1090 1106.667 / 5617.671 1911.449 / 7984.208 2964.219 / 1123.219 Output Total 1700 / 1700 1550 / 1550 3150 / 3150 2350 / 2350 Balance -610 / -610 -443.333 / -443.333 -1813.551 / -1697.551 -1226.781 / - 1226.781 Weight 81.73 kg 81.783 kg 81.737 kg 76.022 kg Constitutional: Present mild distress, obese, chronically ill appearing and cooperative Head: Present atraumatic and normocephalic Respiratory: Present rhonchi and normal respiratory effort; Absent wheezes or crackles Cardiac: Present Irregularly Regular and Systolic Murmur (mechanical click) GI: Present soft and normal bowel sounds; Absent distention or tenderness Extremities: Present normal inspection and full ROM; Absent edema Skin: Present intact; Absent erythema Neuro: Present Grossly Intact, alert, awake, oriented x 3 and moves all extremities Assessment and Plan *Assessment and plan (1) Acute on chronic HFrEF (heart failure with reduced ejection fraction): Status: Acute Category: Medical Code(s): I50.23 - Acute on chronic systolic (congestive) heart failure (2) Iron deficiency anemia: Status: Acute Category: Medical Code(s): D50.9 - Iron deficiency anemia, unspecified (3) Anticoagulation goal of INR 2.5 to 3.5: Status: Acute Category: Medical Code(s): Z51.81 - Encounter for therapeutic drug level monitoring; 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 (4) Presence of biventricular AICD: Status: Acute Category: Surgical Code(s): Z95.810 - Presence of automatic (implantable) cardiac defibrillator (5) History of mitral valve replacement with mechanical valve: Status: Acute Category: Surgical Code(s): Z95.2 - Presence of prosthetic heart valve (6) CKD (chronic kidney disease) stage 4, GFR 15-29 ml/min: Status: Acute Category: Medical Code(s): N18.4 - Chronic kidney disease, stage 4 (severe) (7) Pulmonary hypertension: Status: Suspected Category: Medical Code(s): I27.20 - Pulmonary hypertension, unspecified (8) Diabetes mellitus: Status: Acute Qualifiers: Diabetes mellitus complication status: without complication Diabetes mellitus type: type 1 Qualified Code(s): E10.9 - Type 1 diabetes mellitus without complications Category: Medical Code(s): E11.9 - Type 2 diabetes mellitus without complications (9) Atrial fibrillation, chronic: Status: Acute Category: Medical Code(s): I48.20 - Chronic atrial fibrillation, unspecified (10) COPD (chronic obstructive pulmonary disease): Status: Acute Qualifiers: COPD type: unspecified COPD Qualified Code(s): J44.9 - Chronic obstructive pulmonary disease, unspecified Category: Medical Code(s): J44.9 - Chronic obstructive pulmonary disease, unspecified (11) GERD (gastroesophageal reflux disease): Status: Acute Qualifiers: Esophagitis presence: esophagitis presence not specified Qualified Code(s): K21.9 - Gastro-esophageal reflux disease without esophagitis Category: Medical Code(s): K21.9 - Gastro-esophageal reflux disease without esophagitis (12) HTN (hypertension): Status: Acute Qualifiers: Hypertension type: unspecified Qualified Code(s): I10 - Essential (p rimary) hypertension Category: Medical Code(s): I10 - Essential (primary) hypertension Plan Irina Costa is a 59-year-old female with a history of autoimmune hemolytic anemia, mechanical mitral valve, HFrEF, chronic anticoagulation, hypertension, chronic A-fib. Presented to cardiology clinic and was found to be in increased respiratory distress with increased swelling in her legs. Concern for HFrEF exacerbation. Discussed case with cardiology, request admission for diuresis and further workup including right heart cath. I agreed to admit for further care. Showing response to Bumex drip. -3-1/2 L since admission. Has had 4 L out of output in the past 24 hours but is only -2 L in the past 24 hours. Continues to require stepdown level of care. Problems addressed as follows: Acute on chronic HFrEF Mechanical mitral valve Chronic A-fib - Continue warfarin for goal INR 2.5-3.5. INR 3.2 this morning. Repeat level ordered for the morning. - Previous EF of 33% on cardiac MRI. Repeat shows EF of 15 to 20%. Elevated RVSP. - BiV pacemaker placed 07/11/2024. - CardioMEMS in place but no longer transmitting information - Continue amiodarone 200 mg daily, metolazone 2.5 mg daily, spironolactone 50 mg daily. Holding beta-melany at this time - Continuing nitroprusside drip at 0.5 mcg and Bumex 2 mg/h. Strict monitoring of output. Having good response. Seeing diuresis. -Discussed case with cardiology today, recommend holding beta-melany due to risk for cardiogenic shock. Will evaluate need for possible transfer to higher level of care versus right heart cath. TRISTAN on CKD - See improvement in kidney function with diuresis. Sodium 132, chloride 86, potassium 3.6, magnesium 1.9, replacing per protocol. BUN 82, creatinine 2.6. - Repeat CBC, CMP, magnesium ordered for the morning. #Chronic autoimmune hemolytic anemia - Status post Venofer 200 mg once last night -Transfusion threshold hemoglobin less than 9, improved to 9.2 this morning after receiving 3 units packed red blood cells over the past 24 hours. #Type 2 diabetes ? Hemoglobin A1c 7.9% ? LDSSI, ACHS glucose checks. -Morning glucose 179 - Continue home insulin glargine 14 units nightly, holding Jardiance in the setting of worsening kidney function Chronic pain Gout: Continue oxycodone 10 mg 4 times a day as needed for severe pain; patient concerned about flare, will order ESR, CRP, uric acid level for the morning. Hypothyroid: Continue levothyroxine 25 mcg daily Depression: Continue Cymbalta 60 mg nightly, continue Xanax 0.5 mg 3 times a day as needed for anxiety Mechanical mitral valve-Continue Coumadin therapy Chronic atrial fibrillation-rate controlled. Continue home amiodarone. Hold home warfarin. DNR DVT prophylaxis: Continue warfarin per home regimen
--- NOTE | 2025-04-09 18:50 | PC.NURSE ---
Pt currently resting in bed watching tv. C/O having a sore throat, that is worse w/ swallowing. Upon examination, throat noted to be red w/ no plaques noted at that time. notified and phenol spray ordered per JAN. This afternoon pt reports she coughed up something hard and states some relief after that incident. Pt has also been tachycardic this shift, HR ranging 110-120's, cards was made aware of this and no new orders @ this time. BP normotensive. Pt remains on 2 L O2 per NC, sat mid 90's. UOP < 2L this shift. Pt is a standby assist to BSC d/t multiple monitoring cords and risk for falls. No further needs voiced @ this time. Call denise w/in reach. POC ongoing.
[2025-04-09] MEDS: DULOXETINE 30MG CAPSULE.DR 60 MG PO (20:29)
[2025-04-09] MEDS: PANTOPRAZOLE 40MG TABLET 40 MG PO (20:29)
[2025-04-09] MEDS: INSULIN GLARGINE 100 UNITS/ML 3ML FLEXPEN 14 UNIT SUBCUT (20:31)
[2025-04-09 20:42] LABS: POC Glucose,Bedside 274 (70-110)
[2025-04-10] VITALS (16 sets, daily range): BP systolic 97–136; BP diastolic 54–76; PULSE 90–123; RESP 10–20; TEMP 36.4–36.8; O2SAT 88–98; BMI 30.1
[2025-04-10] MEDS: BUMETANIDE 10 MG in 0.9 % SODIUM CHLORIDE 60 ML 20 MG IV ×5 (02:07→23:45)
[2025-04-10] MEDS: OXYCODONE 10MG W/APAP 325MG TABLET 1 EACH PO ×2 (04:56→22:51)
--- NOTE | 2025-04-10 05:12 | PC.NURSE ---
pt has had 2025ml urine output so far this shift. Pt voids per BSC with standby assist. pt has c/o generalized pain twice this shift and has been medicated per JAN. Bumex gtt infusing @20 ml/hr. Nipride gtt infusing @0.5mcg/kg/min. VSS. Pt remains on 2L NC , tolerating well. Call light in reach.
[2025-04-10 05:59] LABS: Basophils % 0.5 % (0.1-2.0); Eosinophils # 0.2 Kmm3 (0.0-0.4); Eosinophils % 3.1 % (0.1-12.0); Hematocrit 29.7 % (37.0-47.0); Hemoglobin 8.9 g/dL (12.2-16.2); Immature Granulocytes # 0.03 10^3uL; Immature Granulocytes % 0.4 %; Lymphocytes # 0.2 K/mm3 (0.7-4.5); Lymphocytes % 2.7 % (10-50); Mean Corpuscular Volume 93.4 fl (81-99); Mean Platelet Volume 9.3 fl (7.4-10.4); Monocytes % 13.3 % (1.7-9.3); Nucleated Red Blood Cells # 0 10^3/uL; Nucleated Red Blood Cells % 0 %; Platelet Count 189 K/mm3 (142-424); Red Blood Count 3.18 M/mm3 (4.20-5.40); Red Cell Distribution Width 19.4 % (11.5-17.5); Red Cell Distribution Width-SD 65.1 fL; White Blood Count 7.5 K/mm3 (4.8-10.8)
[2025-04-10 06:01] LABS: MANUAL DIFFERENTIAL MANUAL DIFFERENTIAL (MANUAL DIFF)
[2025-04-10 06:01] LABS: POC Glucose,Bedside 180 (70-110)
[2025-04-10 06:17] LABS: Alanine Aminotransferase 18 U/L (12-78); Albumin/Globulin Ratio 1.3 (1.1-1.8); Alkaline Phosphatase 116 U/L (38-126); Anion Gap 9.4 mEq/L (5-15); Aspartate Amino Transferase 35 U/L (14-36); Bilirubin,Total 1.5 mg/dl (0.2-1.3); Blood Urea Nitrogen 72 mg/dl (7-17); Calcium 9.4 mg/dl (8.4-10.2); Carbon Dioxide 38 mmol/L (22.0-30.0); Chloride 85 mmol/L (98-107); Creatinine Clearance Estimated 35 mL/min (50-200); Estimated Glomerular Filt Rate 24 ml/min (>60); GFR (African American) 29 ML/MIN (>60); Glucose 150 mg/dl (74-100); Magnesium 1.8 mg/dl (1.6-2.3); Potassium 3.4 mmoL/L (3.5-5.1); Sodium 129 mmol/L (136-145); Uric Acid 11.2 mg/dl (2.5-6.2)
[2025-04-10 06:23] LABS: C-Reactive Protein 52.9 mg/L (0-4); Eosinophils % 4 % (0-3); Lymphocytes % 7 % (10-50); Monocytes % 2 % (2-9); Neutrophils % 87 % (42-76); Platelet Estimate Normal; Total Cells Counted 100
[2025-04-10 06:24] LABS: Stomatocytes 1+
[2025-04-10 06:25] LABS: Ovalocytes 1+
[2025-04-10 06:27] LABS: INR 3.13 (0.9-1.1); Prothrombin Time 31.9 seconds (10.1-12.5)
[2025-04-10 06:33] LABS: Erythrocyte Sedimentation Rate 52 mm/hr (0-30)
[2025-04-10] MEDS: LEVOTHYROXINE 25MCG (0.025MG) TAB 25 MCG PO (09:00)
[2025-04-10] MEDS: SPIRONOLACTONE 25MG TABLET 50 MG PO (09:00)
[2025-04-10] MEDS: metOLazone 2.5MG TABLET 2.5 MG PO (09:00)
[2025-04-10] MEDS: AMIODARONE 200MG TABLET 200 MG PO (09:01)
[2025-04-10 10:31] LABS: Anion Gap 13.5 mEq/L (5-15); Blood Urea Nitrogen 71 mg/dl (7-17); Calcium 9.8 mg/dl (8.4-10.2); Carbon Dioxide 37 mmol/L (22.0-30.0); Chloride 83 mmol/L (98-107); Creatinine Clearance Estimated 35 mL/min (50-200); Estimated Glomerular Filt Rate 24 ml/min (>60); GFR (African American) 29 ML/MIN (>60); Glucose 163 mg/dl (74-100); Potassium 3.5 mmoL/L (3.5-5.1); Sodium 130 mmol/L (136-145)
--- NOTE | 2025-04-10 10:38 | EXP.CARD.PN ---
Subjective Subjective Date: 04/10/25 Time: 10:39 Principal diagnosis: CHF Interval history: 60 yo WF in ICU on Nipride and Bumex drips She continues to diurese and has now put out over 6 L of urine this admission BUN and creatinine continue to improve with creatinine down to 2.1 today Plan was to proceed with right heart catheterization but since her renal functions are improving and she continues to diurese we will postpone the right heart catheterization and continue to diurese. The plan would be to diurese her as much as possible and see what her baseline creatinine is and then potentially proceed with right heart catheterization at that point to see if she has reversible or irreversible pulmonary hypertension. Exam Data for Last 24 hours Vital signs and Labs for Last 24 Hours: Temp Pulse Resp BP Pulse Ox O2 Del Method O2 Flow Rate 98.2 F 110 H 16 103/54 L 98 Nasal Cannula 2 04/10/25 08:00 04/10/25 08:00 04/10/25 08:00 04/10/25 08:00 04/10/25 08:00 04/10/25 08:00 04/10/25 08:00 FiO2 28 04/08/25 18:56 Laboratory Results - last 24 hr 04/09/25 05:22: POC Glucose 201 H 04/09/25 11:19: POC Glucose 234 H 04/09/25 20:32: POC Glucose 274 H 04/10/25 05:30: WBC 7.5, RBC 3.18 L, Hgb 8.9 L, Hct 29.7 L, MCV 93.4, MCH 28.0, MCHC 30.0 L, RDW 19.4 H, Plt Count 189, MPV 9.3, Neut % (Auto) 80.0, Lymph % (Auto) 2.7 L, [place] % (Auto) 13.3 H, Eos % (Auto) 3.1, Baso % (Auto) 0.5, Neut # (Auto) 6.0, Lymph # (Auto) 0.2 L, [place] # (Auto) 1.0, Eos # (Auto) 0.2, Baso # (Auto) 0.0, Total Counted 100, Neutrophils % (Manual) 87 H, Lymphocytes % (Manual) 7 L, Monocytes % (Manual) 2, Eosinophils % (Manual) 4 H, Platelet Estimate Normal, Ovalocytes 1+, Stomatocytes 1+, ESR 52 H, PT 31.9 H, INR 3.13 H, Sodium 129 L, Potassium 3.4 L, Chloride 85 L, Carbon Dioxide 38 H, Anion Gap 9.4, BUN 72 H, Creatinine 2.10 H, Estimated Creat Clear 35, Estimated GFR 24 L, Est GFR ( Amer) 29 L D, Glucose 150 H, Uric Acid 11.2 H, Calcium 9.4, Magnesium 1.8, Total Bilirubin 1.5 H, AST 35, ALT 18, Alkaline Phosphatase 116, C-Reactive Protein 52.9 H, Total Protein 7.0, Albumin 4.0, Globulin 3.0, Albumin/Globulin Ratio 1.3 04/10/25 05:52: POC Glucose 180 H I & O for Last 24 hours: Intake & Output 04/07/25 04/08/25 04/09/25 04/10/25 11:59 11:59 11:59 11:59 Intake Total 1100 / 1100 1423.450 / 9417.077 0927.885 / 0941.267 5023.126 / 1910.126 Output Total 1000 / 1000 1850 / 1850 3050 / 3050 4375 / 4375 Balance 100 / 100 -426.550 / -426.550 -1477.115 / -1477.115 -2464.874 / -2464.874 Weight 180 lb 4.8 oz 180 lb 3.2 oz 167 lb 9.6 oz 176 lb 9.6 oz Constitutional Constitutional: no acute distress *Routine Cardiovascular Exam Cardiovascular: Present irregularly irregular *Routine Extremities Exam Extremities: Present edema Progress Note: A&P Assessment and plan (1) Acute on chronic HFrEF (heart failure with reduced ejection fraction): Status: Acute (2) Iron deficiency anemia: Status: Acute (3) Anticoagulation goal of INR 2.5 to 3.5: Status: Acute (4) Presence of biventricular AICD: Status: Acute (5) History of mitral valve replacement with mechanical valve: Status: Acute (6) CKD (chronic kidney disease) stage 4, GFR 15-29 ml/min: Status: Acute (7) Pulmonary hypertension: Status: Suspected (8) Diabetes mellitus: Status: Acute (9) Atrial fibrillation, chronic: Status: Acute (10) COPD (chronic obstructive pulmonary disease): Status: Acute (11) GERD (gastroesophageal reflux disease): Status: Acute (12) HTN (hypertension): Status: Acute Assessment and Plan Assessment and Plan for All Diagnoses:: Acute on Chronic HFrEF 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 This would be critical to know if she is to be considered for heart transplant Paroxysmal atrial fibrillation with RVR - V-paced rhythm here - Continue amiodarone and warfarin Mechanical mitral valve replaced - Normal function per office echo - Continue warfarin Autoimmune hemolytic anemia - Status post port placement - Hemoglobin 7 initially but transfused up to 9 - Iron repletion and blood transfusion this admission CKD 3 - Creatinine 2.1 today, baseline 2.0 - Monitor with daily labs Since renal functions are improving with combo of Nipride and bumex, will postpone RHC until pt is euvolemic to discern if pulmonary HTN is reversible or not. Continue current meds.
[2025-04-10 11:16] LABS: POC Glucose,Bedside 180 (70-110)
[2025-04-10] MEDS: WARFARIN 2MG TABLET 2 MG PO (12:24)
--- NOTE | 2025-04-10 13:43 | P.PN_ITS ---
Subjective *Date: 04/10/25 *Time: 13:43 Interval history: Mrs. Costa is a 60-year-old female with chronic longstanding anemia. She does have iron deficiency anemia and Hemoccult positive stool. She also has hemolytic anemia which was diagnosed in 2014. The patient is followed by Dr. Shant Pro and cardiology (Tod Sawyer M.D.). The patient has been on long- term anticoagulation. She did undergo splenic embolectomy. She has been followed by GI in [place] (Rob Betancur MD) as well as GI in [place] (Roberto Carlos Lopez MD). Dr. Betancur had recommended push enteroscopy. She has had EGD and colonoscopy (Roberto Carlos Lopez January 25, 2025) and these reports indicate that the everything was normal. However, PillCam had shown appearance of angiodysplasia in the duodenum. I had actually seen the patient for consultation while in the hospital on 01/04/2025 and had recommended panendoscopy and PillCam but she went ahead and had these with her established GI. I had also felt that she had angiodysplasias especially with her cardiac history. Exam Data for Last 24 hours Vital signs and Labs for Last 24 Hours: Temp Pulse Resp BP Pulse Ox O2 Del Method O2 Flow Rate 98.2 F 109 H 16 111/67 96 Nasal Cannula 2 04/10/25 12:01 04/10/25 12:01 04/10/25 12:01 04/10/25 12:01 04/10/25 12:01 04/10/25 12:37 04/10/25 12:37 FiO2 28 04/08/25 18:56 Laboratory Results - last 24 hr 04/09/25 20:32: POC Glucose 274 H 04/10/25 05:30: WBC 7.5, RBC 3.18 L, Hgb 8.9 L, Hct 29.7 L, MCV 93.4, MCH 28.0, MCHC 30.0 L, RDW 19.4 H, Plt Count 189, MPV 9.3, Neut % (Auto) 80.0, Lymph % (Auto) 2.7 L, [place] % (Auto) 13.3 H, Eos % (Auto) 3.1, Baso % (Auto) 0.5, Neut # (Auto) 6.0, Lymph # (Auto) 0.2 L, [place] # (Auto) 1.0, Eos # (Auto) 0.2, Baso # (Auto) 0.0, Total Counted 100, Neutrophils % (Manual) 87 H, Lymphocytes % (Manual) 7 L, Monocytes % (Manual) 2, Eosinophils % (Manual) 4 H, Platelet Estimate Normal, Ovalocytes 1+, Stomatocytes 1+, ESR 52 H, PT 31.9 H, INR 3.13 H , Sodium 129 L, Potassium 3.4 L, Chloride 85 L, Carbon Dioxide 38 H, Anion Gap 9.4, BUN 72 H, Creatinine 2.10 H, Estimated Creat Clear 35, Estimated GFR 24 L, Est GFR ( Amer) 29 L D, Glucose 150 H, Uric Acid 11.2 H, Calcium 9.4, Magnesium 1.8, Total Bilirubin 1.5 H, AST 35, ALT 18, Alkaline Phosphatase 116, C-Reactive Protein 52.9 H, Total Protein 7.0, Albumin 4.0, Globulin 3.0, Albumin/Globulin Ratio 1.3 04/10/25 05:52: POC Glucose 180 H 04/10/25 10:15: Sodium 130 L, Potassium 3.5, Chloride 83 L, Carbon Dioxide 37 H, Anion Gap 13.5, BUN 71 H, Creatinine 2.10 H, Estimated Creat Clear 35, Estimated GFR 24 L, Est GFR ( Amer) 29 L, Glucose 163 H, Calcium 9.8 04/10/25 11:03: POC Glucose 180 H I & O for Last 24 hours: Intake & Output 04/07/25 04/08/25 04/09/25 04/10/25 23:59 23:59 23:59 23:59 Intake Total 1106.667 / 2127.749 0653.449 / 0968.018 8741.345 / 2462.345 671 / 671 Output Total 1550 / 1550 3150 / 3150 3900 / 3900 2375 / 2375 Balance -443.333 / -443.333 -1813.551 / -1697.551 -1437.655 / -1437.655 -1704 / -1704 Weight 180 lb 4.8 oz 180 lb 3.2 oz 167 lb 9.6 oz 176 lb 9.6 oz Constitutional Constitutional: no acute distress *Routine HEENT Exam Head: Present normocephalic Eye: Present EOMI and PERRL ENT: Present mucous membranes moist *Routine Neck Exam Neck: Present supple; Absent lymphadenopathy *Routine Respiratory Exam Respiratory: Present CTA bilaterally *Routine Cardiovascular Exam Cardiovascular: Present RRR *Routine Abdominal Exam Abdominal: Present soft and normoactive bowel sounds; Absent tenderness *Routine Extremities Exam Extremities: Absent cyanosis, clubbing or edema *Routine Skin Exam Skin: Present warm; Absent rash *Routine Neurological Exam Neurological: Present alert and oriented X3 Assessment and Plan *Assessment and plan (1) Positive occult stool blood test: Status: Acute Category: Medical Code(s): R19.5 - Other fecal abnormalities (2) Iron deficiency anemia: Status: Acute Category: Medical Code(s): D50.9 - Iron deficiency anemia, unspecified (3) GI bleed: Status: Acute Category: Medical Code(s): K92.2 - Gastrointestinal hemorrhage, unspecified (4) Duodenal hemorrhage due to angiodysplasia of duodenum: Status: Acute Category: Medical Code(s): K31.811 - Angiodysplasia of stomach and duodenum with bleeding Plan 1. Iron deficiency anemia/Hemoccult positive stool. The patient has had what she states is over 200 blood transfusions. Much of this may have been related to the hemolytic anemia but the patient clearly is having chronic GI blood loss. She does not have any overt signs of bleeding but she is Hemoccult positive and I had sent this testing on 01/04/2025. I had seen her while she was hospitalized in December and had recommended panendoscopy and PillCam which was done with her established GI elsewhere (Dr. Lopez and Dr. Betancur). Push enteroscopy is now advised because of angiodysplasia of duodenum. I have spoken with the patient. She is not overly enthusiastic about starting over which I understand. I would recommend enteroscopy with treatment of any visible angiodysplasias with APC. If there are multiple angiodysplasias throughout the GI tract, we do consider medical therapies in refractory cases including hormonal therapy (estrogen with or without progesterone) which is notably very useful in the treatment of chronic GI blood loss from angiodysplasias. However, with her cardiac history and potential clotting risk, I would not consider this unless she understood risks and cardiology/hematology were in favor.
[2025-04-10 14:27] LABS: POC Glucose,Bedside 209 (70-110)
[2025-04-10 16:41] LABS: POC Glucose,Bedside 245 (70-110)
[2025-04-10] MEDS: NITROPRUSSIDE SODIUM 50 MG in DEXTROSE 5 % IN WATER 250 ML 12.37 MG IV (17:24)
--- NOTE | 2025-04-10 18:39 | EXP.PN ---
Subjective *Date: 04/10/25 *Time: 18:39 Interval history: Patient doing well, diuresing well. Kidney fucntion improving with diuresis, will continue. Planning for RHC prior to discharge. Exam Data for Last 24 hours Vital signs and Labs for Last 24 Hours: Temp Pulse Resp BP Pulse Ox O2 Del Method O2 Flow Rate 97.6 F 115 H 12 136/71 97 Nasal Cannula 2 04/10/25 16:10 04/10/25 18:01 04/10/25 18:01 04/10/25 18:01 04/10/25 18:01 04/10/25 18:01 04/10/25 18:01 FiO2 28 04/08/25 18:56 Laboratory Results - last 24 hr 04/09/25 16:33: POC Glucose 209 H 04/09/25 20:32: POC Glucose 274 H 04/10/25 05:30: WBC 7.5, RBC 3.18 L, Hgb 8.9 L, Hct 29.7 L, MCV 93.4, MCH 28.0, MCHC 30.0 L, RDW 19.4 H, Plt Count 189, MPV 9.3, Neut % (Auto) 80.0, Lymph % (Auto) 2.7 L, [place] % (Auto) 13.3 H, Eos % (Auto) 3.1, Baso % (Auto) 0.5, Neut # (Auto) 6.0, Lymph # (Auto) 0.2 L, [place] # (Auto) 1.0, Eos # (Auto) 0.2, Baso # (Auto) 0.0, Total Counted 100, Neutrophils % (Manual) 87 H, Lymphocytes % (Manual) 7 L, Monocytes % (Manual) 2, Eosinophils % (Manual) 4 H, Platelet Estimate Normal, Ovalocytes 1+, Stomatocytes 1+, ESR 52 H, PT 31.9 H, INR 3.13 H, Sodium 129 L, Potassium 3.4 L, Chloride 85 L, Carbon Dioxide 38 H, Anion Gap 9.4, BUN 72 H, Creatinine 2.10 H, Estimated Creat Clear 35, Estimated GFR 24 L, Est GFR ( Amer) 29 L D, Glucose 150 H, Uric Acid 11.2 H, Calcium 9.4, Magnesium 1.8, Total Bilirubin 1.5 H, AST 35, ALT 18, Alkaline Phosphatase 116, C-Reactive Protein 52.9 H, Total Protein 7.0, Albumin 4.0, Globulin 3.0, Albumin/Globulin Ratio 1.3 04/10/25 05:52: POC Glucose 180 H 04/10/25 10:15: Sodium 130 L, Potassium 3.5, Chloride 83 L, Carbon Dioxide 37 H, Anion Gap 13.5, BUN 71 H, Creatinine 2.10 H, Estimated Creat Clear 35, Estimated GFR 24 L, Est GFR ( Amer) 29 L, Glucose 163 H, Calcium 9.8 04/10/25 11:03: POC Glucose 180 H 04/10/25 16:12: POC Glucose 245 H I & O for Last 24 hours: Intake & Output 04/07/25 04/08/25 04/09/25 04/10/25 23:59 23:59 23:59 23:59 Intake Total 1106.667 / 4275.688 5418.449 / 0422.040 6661.345 / 2462.345 1326 / 1326 Output Total 1550 / 1550 3150 / 3150 3900 / 3900 2375 / 2375 Balance -443.333 / -443.333 -1813.551 / -1697.551 -1437.655 / -1437.655 -1049 / -1049 Weight 81.783 kg 81.737 kg 76.022 kg 80.104 kg Constitutional Constitutional: no acute distress *Routine Cardiovascular Exam Cardiovascular: Present irregularly irregular *Routine Extremities Exam Extremities: Present edema Assessment and Plan *Assessment and plan (1) Acute on chronic HFrEF (heart failure with reduced ejection fraction): Status: Acute Category: Medical Code(s): I50.23 - Acute on chronic systolic (congestive) heart failure (2) Iron deficiency anemia: Status: Acute Category: Medical Code(s): D50.9 - Iron deficiency anemia, unspecified (3) Anticoagulation goal of INR 2.5 to 3.5: Status: Acute Category: Medical Code(s): Z51.81 - Encounter for therapeutic drug level monitoring; Z79.01 - penitentiary (current) use of anticoagulants (4) Presence of biventricular AICD: Status: Acute Category: Surgical Code(s): Z95.810 - Presence of automatic (implantable) cardiac defibrillator (5) History of mitral valve replacement with mechanical valve: Status: Acute Category: Surgical Code(s): Z95.2 - Presence of prosthetic heart valve (6) CKD (chronic kidney disease) stage 4, GFR 15-29 ml/min: Status: Acute Category: Medical Code(s): N18.4 - Chronic kidney disease, stage 4 (severe) (7) Pulmonary hypertension: Status: Suspected Category: Medical Code(s): I27.20 - Pulmonary hypertension, unspecified (8) Diabetes mellitus: Status: Acute Qualifiers: Diabetes mellitus complication status: without complication Diabetes mellitus type: type 1 Qualified Code(s): E10.9 - Type 1 diabetes mellitus without complications Category: Medical Code(s): E11.9 - Type 2 diabetes mellitus without complications (9) Atrial fibrillation, chronic: Status: Acute Category: Medical Code(s): I48.20 - Chronic atrial fibrillation, unspecified (10) COPD (chronic obstructive pulmonary disease): Status: Acute Qualifiers: COPD type: unspecified COPD Qualified Code(s): J44.9 - Chronic obstructive pulmonary disease, unspecified Category: Medical Code(s): J44.9 - Chronic obstructive pulmonary disease, unspecified (11) GERD (gastroesophageal reflux disease): Status: Acute Qualifiers: Esophagitis presence: esophagitis presence not specified Qualified Code(s): K21.9 - Gastro-esophageal reflux disease without esophagitis Category: Medical Code(s): K21.9 - Gastro-esophageal reflux disease without esophagitis (12) HTN (hypertension): Status: Acute Qualifiers: Hypertension type: unspecified Qualified Code(s): I10 - Essential (primary) hypertension Category: Medical Code(s): I10 - Essential (primary) hypertension Plan Irina Costa is a 59-year-old female with a history of autoimmune hemolytic anemia, mechanical mitral valve, HFrEF, chronic anticoagulation, hypertension, chronic A-fib. Presented to cardiology clinic and was found to be in increased respiratory distress with increased swelling in her legs. Concern for HFrEF exacerbation. Discussed case with cardiology, request admission for diuresis and further workup including right heart cath. I agreed to admit for further care. Showing response to Bumex drip. -3-1/2 L since admission. Has had 4 L out of output in the past 24 hours but is only -2 L in the past 24 hours. Continues to require stepdown level of care. Problems addressed as follows: Acute on chronic HFrEF Mechanical mitral valve Chronic A-fib - Continue warfarin for goal INR 2.5-3.5. INR 3.13 this morning. Repeat level ordered for the morning. - Previous EF of 33% on cardiac MRI. Repeat shows ECHO EF of 15 to 20%. Elevated RVSP. - BiV pacemaker placed 07/11/2024. - CardioMEMS in place but no longer transmitting information - Continue amiodarone 200 mg daily, metolazone 2.5 mg daily, spironolactone 50 mg daily. Holding beta-melany at this time due to risk of cardiogenic shock. - Continuing nitroprusside drip at 0.5 mcg and Bumex 2 mg/h. Strict monitoring of output. Having good response, net -5.2L. - Cr improved 2.6 to 2.1. - Discussed case with cardiology today, recommend holding beta-melany due to risk for cardiogenic shock. TRISTAN on CKD - See improvement in kidney function with diuresis. - Cr improved 2.6 to 2.1. - Repeat CBC, CMP, magnesium ordered for the morning. #Chronic autoimmune hemolytic anemia - Status post Venofer 200 mg once last night - Transfusion threshold hemoglobin less than 9, improved to 9.2 this morning after receiving 3 units packed red blood cells over the past 24 hours. - GI consulted, recommended enteroscopy but at this time will refer to poor cardiac status. Hgb stable around 9.0. #Type 2 diabetes ? Hemoglobin A1c 7.9% ? LDSSI, ACHS glucose checks. - Continue home insulin glargine 14 units nightly, holding Jardiance in the setting of TRISTAN. Chronic pain Gout: Continue oxycodone 10 mg 4 times a day as needed for severe pain; patient concerned about flare, will order ESR, CRP, uric acid level for the morning. Hypothyroid: Continue levothyroxine 25 mcg daily Depression: Continue Cymbalta 60 mg nightly, continue Xanax 0.5 mg 3 times a day as needed for anxiety Mechanical mitral valve-Continue Coumadin therapy Chronic atrial fibrillation-rate controlled. Continue home amiodarone. Hold home warfarin. DNR DVT prophylaxis: Continue warfarin per home regimen
[2025-04-10 20:08] LABS: POC Glucose,Bedside 300 (70-110)
[2025-04-10] MEDS: INSULIN GLARGINE 100 UNITS/ML 3ML FLEXPEN 14 UNIT SUBCUT (20:47)
[2025-04-10] MEDS: DULOXETINE 30MG CAPSULE.DR 60 MG PO (20:47)
[2025-04-10] MEDS: PANTOPRAZOLE 40MG TABLET 40 MG PO (20:47)
[2025-04-11] VITALS (23 sets, daily range): BP systolic 89–116; BP diastolic 49–72; PULSE 88–120; RESP 12–20; TEMP 36.6–37.2; O2SAT 93–99; BMI 30.2
[2025-04-11] MEDS: BUMETANIDE 10 MG in 0.9 % SODIUM CHLORIDE 60 ML 20 MG IV ×4 (04:37→18:42)
[2025-04-11 05:28] LABS: Basophils % 0.6 % (0.1-2.0); Eosinophils # 0.3 Kmm3 (0.0-0.4); Eosinophils % 4.6 % (0.1-12.0); Hematocrit 30.2 % (37.0-47.0); Hemoglobin 9.1 g/dL (12.2-16.2); Immature Granulocytes # 0.03 10^3uL; Immature Granulocytes % 0.4 %; Lymphocytes # 0.2 K/mm3 (0.7-4.5); Lymphocytes % 3.2 % (10-50); Mean Corpuscular HGB Conc 30.1 g/dL (31.8-35.4); Mean Corpuscular Volume 92.9 fl (81-99); Mean Platelet Volume 9.6 fl (7.4-10.4); Monocytes # 0.9 K/mm3 (0.1-1.0); Monocytes % 12.2 % (1.7-9.3); Neutrophils # 5.5 K/mm3 (1.8-7.8); Nucleated Red Blood Cells # 0 10^3/uL; Nucleated Red Blood Cells % 0 %; Platelet Count 205 K/mm3 (142-424); Red Blood Count 3.25 M/mm3 (4.20-5.40); Red Cell Distribution Width 19.5 % (11.5-17.5); Red Cell Distribution Width-SD 66.1 fL
[2025-04-11 05:35] LABS: MANUAL DIFFERENTIAL MANUAL DIFFERENTIAL (MANUAL DIFF)
[2025-04-11 05:41] LABS: Alanine Aminotransferase 19 U/L (12-78); Alkaline Phosphatase 105 U/L (38-126); Aspartate Amino Transferase 41 U/L (14-36); Bilirubin,Total 1.5 mg/dl (0.2-1.3); Calcium 9.6 mg/dl (8.4-10.2); Chloride 84 mmol/L (98-107); Glucose 146 mg/dl (74-100); Potassium 3.5 mmoL/L (3.5-5.1); Sodium 129 mmol/L (136-145)
[2025-04-11 05:43] LABS: Albumin Level 4.3 g/dl (3.5-5.0); Albumin/Globulin Ratio 1.5 (1.1-1.8); Anion Gap 11.5 mEq/L (5-15); Blood Urea Nitrogen 68 mg/dl (7-17); Carbon Dioxide 37 mmol/L (22.0-30.0); Creatinine Clearance Estimated 34 mL/min (50-200); Estimated Glomerular Filt Rate 23 ml/min (>60); GFR (African American) 27 ML/MIN (>60); Globulin 2.9 g/dL (1.3-3.2); INR 3.38 (0.9-1.1); Prothrombin Time 34.3 seconds (10.1-12.5); Total Protein,Serum 7.2 g/dl (6.3-8.2)
[2025-04-11 06:10] LABS: Atypical Lymphocytes % 13; Lymphocytes % 3 % (10-50); Neutrophils % 84 % (42-76); Total Cells Counted 100
[2025-04-11 06:25] LABS: POC Glucose,Bedside 180 (70-110)
--- NOTE | 2025-04-11 06:44 | PC.NURSE ---
Pt alert and oriented. pt awake sitting up in bed. Pt still on bumex drip at 20 and nipride at 0.5mcg. pt still on oxygen 2lpm nc. pt is to have egd done today. preop checklist has been completed. pt is in gown. pt will take off her glasses before going down. urine out this shift is 2600.
[2025-04-11 07:34] LABS: Magnesium 1.8 mg/dl (1.6-2.3)
--- NOTE | 2025-04-11 08:04 | EXP.CARD.PN ---
Subjective Subjective Date: 04/11/25 Time: 08:04 Principal diagnosis: CHF Interval history: 60 yo WF in bed in [facility] Tele shows A. fib with RVR with intermittent V. pacing She continues to diurese with net 7 liters out Going for endoscopy this AM BUN and Cr stable at 68 and 2.2 Exam Data for Last 24 hours Vital signs and Labs for Last 24 Hours: Temp Pulse Resp BP Pulse Ox O2 Del Method O2 Flow Rate 97.9 F 110 H 16 113/70 96 Nasal Cannula 2 04/11/25 04:00 04/11/25 06:00 04/11/25 06:00 04/11/25 06:00 04/11/25 06:00 04/11/25 06:57 04/11/25 06:57 FiO2 28 04/10/25 19:03 Laboratory Results - last 24 hr 04/09/25 16:33: POC Glucose 209 H 04/10/25 10:15: Sodium 130 L, Potassium 3.5, Chloride 83 L, Carbon Dioxide 37 H, Anion Gap 13.5, BUN 71 H, Creatinine 2.10 H, Estimated Creat Clear 35, Estimated GFR 24 L, Est GFR ( Amer) 29 L, Glucose 163 H, Calcium 9.8 04/10/25 11:03: POC Glucose 180 H 04/10/25 16:12: POC Glucose 245 H 04/10/25 20:01: POC Glucose 300 H 04/11/25 05:14: WBC 7.0, RBC 3.25 L, Hgb 9.1 L, Hct 30.2 L, MCV 92.9, MCH 28.0, MCHC 30.1 L, RDW 19.5 H, Plt Count 205, MPV 9.6, Neut % (Auto) 79.0, Lymph % (Auto) 3.2 L, [place] % (Auto) 12.2 H, Eos % (Auto) 4.6, Baso % (Auto) 0.6, Neut # (Auto) 5.5, Lymph # (Auto) 0.2 L, [place] # (Auto) 0.9, Eos # (Auto) 0.3, Baso # (Auto) 0.0, Total Counted 100, Neutrophils % (Manual) 84 H, Lymphocytes % (Manual) 3 L, Atypical Lymphs % 13, PT 34.3 H, INR 3.38 H, Sodium 129 L, Potassium 3.5, Chloride 84 L, Carbon Dioxide 37 H, Anion Gap 11.5, BUN 68 H, Creatinine 2.20 H, Estimated Creat Clear 34, Estimated GFR 23 L, Est GFR ( Amer) 27 L, Glucose 146 H, Calcium 9.6, Magnesium 1.8, Total Bilirubin 1.5 H, AST 41 H, ALT 19, Alkaline Phosphatase 105, Total Protein 7.2, Albumin 4.3, Globulin 2.9, Albumin/Globulin Ratio 1.5 04/11/25 06:07: POC Glucose 180 H I & O for Last 24 hours: Intake & Output 04/08/25 04/09/25 04/10/25 04/11/25 11:59 11:59 11:59 11:59 Intake Total 1423.450 / 9554.858 0270.885 / 2958.763 7506.126 / 9439.046 7289.000 / 1718.000 Output Total 1850 / 1850 3050 / 3050 5075 / 5075 2900 / 2900 Balance -426.550 / -426.550 -1477.115 / -1477.115 -3164.874 / -3164.874 -1182.000 / -1182.000 Weight 180 lb 3.2 oz 167 lb 9.6 oz 176 lb 9.6 oz 176 lb 14.03 oz Constitutional Constitutional: no acute distress *Routine Respiratory Exam Respiratory: Present CTA bilaterally; Absent rhonchi or wheezes *Routine Cardiovascular Exam Cardiovascular: Present tachycardia and irregularly irregular Progress Note: A&P Assessment and plan (1) Acute on chronic HFrEF (heart failure with reduced ejection fraction): Status: Acute (2) Iron deficiency anemia: Status: Acute (3) Anticoagulation goal of INR 2.5 to 3.5: Status: Acute (4) Presence of biventricular AICD: Status: Acute (5) History of mitral valve replacement with mechanical valve: Status: Acute (6) CKD (chronic kidney disease) stage 4, GFR 15-29 ml/min: Status: Acute (7) Pulmonary hypertension: Status: Suspected (8) Diabetes mellitus: Status: Acute (9) Atrial fibrillation, chronic: Status: Acute (10) COPD (chronic obstructive pulmonary disease): Status: Acute (11) GERD (gastroesophageal reflux disease): Status: Acute (12) HTN (hypertension): Status: Acute Assessment and Plan Assessment and Plan for All Diagnoses:: Acute on Chronic HFrEF s/p [employer]-D and CardioMEMS - Likely exacerbated secondary to worsening severe iron deficiency anemia, s/p transfusion and IV iron - Echo this admission shows reduced EF to 15 to 20% - diuresing on IV nipride, Bumex and metolazone - plan for Right heart cath prior to discharge to see if her pulmonary hypertension is reversible (related to CHF) or not. This would be critical to know if she is to be considered for heart transplant Paroxysmal atrial fibrillation with RVR - V-paced rhythm here - Continue amiodarone and warfarin - restart low dose metoprolol for heart rate control Mechanical mitral valve replaced - Normal function per office echo - Continue warfarin History of Autoimmune hemolytic anemia but Dr. Pro believes she is just anemic due to iron deficiency related to continuous GI blood loss - Status post port placement - Hemoglobin 7 initially but transfused up to 9 - Iron repletion and blood transfusion this admission CKD 3 - Creatinine 2.2 today, baseline 2.0 - Monitor with daily labs Endoscopy today to try and locate and treat angiodysplasia (etiology of blood loss) Plan RHC prior to discharge
[2025-04-11] MEDS: METOPROLOL TARTRATE 25MG TABLET 25 MG PO ×2 (08:42→20:40)
[2025-04-11] MEDS: AMIODARONE 200MG TABLET 200 MG PO (08:43)
--- NOTE | 2025-04-11 11:25 | PC.NURSE ---
pt left the unit via bed to surgery @[id number]
[2025-04-11 11:35] LABS: POC Glucose,Bedside 199 (70-110)
--- NOTE | 2025-04-11 12:06 | P.PCN_ITS ---
[facility] [place] Procedure Note Date: 04/11/25 Time: 12:44 Procedure Note:: Push enteroscopy procedure Report: Small bowel enteroscopy with APC ablation Endoscopost: Fabio Mathew II, MD Referring Physician: Reji Castro M.D. Date of Procedure: April 11, 2025 Equipment: Olympus CIF 190 pediatric colonoscope Sedation: MAC sedation Indications: Mrs. Costa is a 60-year-old female who is here for push enteroscopy secondary to abnormal PillCam. She has had chronic longstanding anemia. She does have iron deficiency anemia and Hemoccult positive stool. She also has hemolytic anemia which was diagnosed in 2014. The patient is followed by Dr. Elijah Pro and cardiology (Tod Sawyer M.D.). The patient has been on long-term anticoagulation. She did undergo splenic embolectomy. She has been followed by GI in [place] (Rob Betancur MD) as well as GI in [place] (Roberto Carlos Lopez MD). Dr. Betancur had recommended push enteroscopy. She has had EGD and colonoscopy (Roberto Carlos Lopez January 25, 2025) and these reports indicate that the everything was normal. However, PillCam had shown appearance of angiodysplasia in the duodenum. I had actually seen the patient for consultation while in the hospital on 01/04/2025 and had recommended panendoscopy and PillCam but she went ahead and had these with her established GI. Procedure: Prior to the procedure, a history and physical exam was performed, and patient's medications and allergies were reviewed. The risks, benefits and alternatives o f the sedation and procedure were discussed with the patient. All questions were answered and informed consent was obtained. The patient was brought to the procedure room. Patient identification and proposed procedure were verified by the physician and the nurse. The patient was placed in a left lateral decubitus position and the scope was passed under direct vision. Throughout the procedure, the patient's blood pressure, pulse, and oxygen saturations were monitored continuously. The upper GI endoscopy/enteroscopy was accomplished without difficulty. The patient tolerated the procedure well. Findings: The scope was passed directly into the upper esophagus and advanced to the third portion of the proximal/mid jejunum (to the hub of the colonoscope). There were at least 6 punctate angiodysplasias/AVMs within the jejunum and duodenum that were ablated using APC ablation. There were no other mucosal defects. The scope was withdrawn through a normal duodenal bulb and pylorus into the stomach. There were at least 5 angiodysplasias/AVMs in the mid and proximal stomach that were ablated using APC ablation. There were no other mucosal abnormalities of the stomach. The scope was then withdrawn into the esophagus. The remainder of the esophageal mucosa was normal. Impression: 1. Multiple angiodysplasias of stomach/small bowel (11 identified and ablated using APC) Plan: Angiodysplasias are aberrant blood vessels which are more frequently found in the gastrointestinal tract, where they are probably more common than anywhere else in the body. The vast majority are acquired later in life. The reasons for the distortion of vascular structures observed as we get older are poorly understood. Angiodysplasias are composed of ectatic, dilated, thin-walled blood vessels and the most prominent feature in angiodysplasias is the presence of dilated, tortuous submucosal veins. A proposed theory is that angiodysplasias develop due to intermittent, recurrent low-grade obstruction of submucosal veins. Over years, the obstruction results in dilatation and tortuosity of the draining areas (ie, submucosal vessels, venules, and superficial capillaries). Angiodysplasia may be found during evaluation of gastrointestinal (GI) bleeding or it may be discovered incidentally during an endoscopic evaluation being performed for other reasons. If bleeding occurs, the bleeding tends be recurrent and chronic. However, marked acute bleeding causing orthostasis or hypotension can rarely occur. Angiodysplasia of the stomach or duodenum has been incriminated as the cause of blood loss in 4 to 7 percent of patients with gastrointestinal bleeding . Such patients may present with either occult bleeding or overt bleeding. In addition, angiodysplasia may be detected as an incidental finding. In refractory and difficult cases, some medical therapies have been effectively used including estrogen (with or without progesterone), angiogenesis inhibitors (i.e. thalidomide) and Bevacizumab. I would consider this patient a refractory case especially since there are probably numerous angiodysplasias beyond reach of the scope and APC ablation does not ensure that new AVMs do not occur. I have had the best luck using estrogen therapy and I would strongly consider this here. It is especially helpful in controlling small bowel bleeding from angiodysplasias and persons with angiodysplasia and kidney disease. The other consider treatment would be Bevacizumab which is a humanized monoclonal antibody against vascular endothelial growth factor and has been used successfully to treat refractory bleeding from small bowel angiodysplasias.
--- NOTE | 2025-04-11 12:54 | PC.NURSE ---
Pt arrived back from surgery to the unit in room [id number] @[id number]
[2025-04-11] MEDS: NITROPRUSSIDE SODIUM 50 MG in DEXTROSE 5 % IN WATER 250 ML 12.37 MG IV (13:39)
[2025-04-11] MEDS: WARFARIN 2MG TABLET 2 MG PO (15:34)
[2025-04-11] MEDS: LEVOTHYROXINE 25MCG (0.025MG) TAB 25 MCG PO (15:35)
[2025-04-11] MEDS: metOLazone 2.5MG TABLET 2.5 MG PO (15:35)
[2025-04-11] MEDS: SPIRONOLACTONE 25MG TABLET 50 MG PO (15:35)
[2025-04-11 16:57] LABS: POC Glucose,Bedside 248 (70-110)
[2025-04-11 20:08] LABS: POC Glucose,Bedside 239 (70-110)
[2025-04-11] MEDS: DULOXETINE 30MG CAPSULE.DR 60 MG PO (20:40)
[2025-04-11] MEDS: PANTOPRAZOLE 40MG TABLET 40 MG PO (20:40)
[2025-04-11] MEDS: INSULIN GLARGINE 100 UNITS/ML 3ML FLEXPEN 14 UNIT SUBCUT (20:40)
--- NOTE | 2025-04-11 21:41 | P.PN_ITS ---
Subjective *Date: 04/11/25 *Time: 21:41 Interval history: Patient feeling much better today, feels less fluid overloaded. Cardiology planning for RHC in the morning. Exam Data for Last 24 hours Vital signs and Labs for Last 24 Hours: Temp Pulse Resp BP Pulse Ox O2 Del Method O2 Flow Rate 97.9 F 88 17 110/65 95 Nasal Cannula 2 04/11/25 20:00 04/11/25 20:00 04/11/25 20:00 04/11/25 20:00 04/11/25 20:00 04/11/25 21:00 04/11/25 21:00 FiO2 28 04/10/25 19:03 Laboratory Results - last 24 hr 04/11/25 05:14: WBC 7.0, RBC 3.25 L, Hgb 9.1 L, Hct 30.2 L, MCV 92.9, MCH 28.0, MCHC 30.1 L, RDW 19.5 H, Plt Count 205, MPV 9.6, Neut % (Auto) 79.0, Lymph % (Auto) 3.2 L, [place] % (Auto) 12.2 H, Eos % (Auto) 4.6, Baso % (Auto) 0.6, Neut # (Auto) 5.5, Lymph # (Auto) 0.2 L, [place] # (Auto) 0.9, Eos # (Auto) 0.3, Baso # (Auto) 0.0, Total Counted 100, Neutrophils % (Manual) 84 H, Lymphocytes % (Manual) 3 L, Atypical Lymphs % 13, PT 34.3 H, INR 3.38 H, Sodium 129 L, Potassium 3.5, Chloride 84 L, Carbon Dioxide 37 H, Anion Gap 11.5, BUN 68 H, Creatinine 2.20 H, Estimated Creat Clear 34, Estimated GFR 23 L, Est GFR ( Amer) 27 L, Glucose 146 H, Calcium 9.6, Magnesium 1.8, Total Bilirubin 1.5 H, AST 41 H, ALT 19, Alkaline Phosphatase 105, Total Protein 7.2, Albumin 4.3, Globulin 2.9, Albumin/Globulin Ratio 1.5 04/11/25 06:07: POC Glucose 180 H 04/11/25 11:17: POC Glucose 199 H 04/11/25 16:50: POC Glucose 248 H 04/11/25 20:00: POC Glucose 239 H I & O for Last 24 hours: Intake & Output 04/08/25 04/09/25 04/10/25 04/11/25 23:59 23:59 23:59 23:59 Intake Total 1336.449 / 9269.211 6271.345 / 2462.345 1731.667 / 6221.889 3681.493 / 1104.493 Output Total 3150 / 3150 3900 / 3900 3475 / 3775 2750 / 2750 Balance -1813.551 / -1697.551 -1437.655 / -1437.655 -1743.333 / -1903.333 - 1645.507 / -1645.507 Weight 81.737 kg 76.022 kg 80.104 kg 80.23 kg Constitutional Constitutional: no acute distress *Routine Respiratory Exam Respiratory: Present CTA bilaterally; Absent rhonchi or wheezes *Routine Cardiovascular Exam Cardiovascular: Present tachycardia and irregularly irregular Assessment and Plan *Assessment and plan (1) Acute on chronic HFrEF (heart failure with reduced ejection fraction): Status: Acute Category: Medical Code(s): I50.23 - Acute on chronic systolic (congestive) heart failure (2) Iron deficiency anemia: Status: Acute Category: Medical Code(s): D50.9 - Iron deficiency anemia, unspecified (3) Anticoagulation goal of INR 2.5 to 3.5: Status: Acute Category: Medical Code(s): Z51.81 - Encounter for therapeutic drug level monitoring; Z79.01 - buttermaker continuous churn (current) use of anticoagulants (4) Presence of biventricular AICD: Status: Acute Category: Surgical Code(s): Z95.810 - Presence of automatic (implantable) cardiac defibrillator (5) History of mitral valve replacement with mechanical valve: Status: Acute Category: Surgical Code(s): Z95.2 - Presence of prosthetic heart valve (6) CKD (chronic kidney disease) stage 4, GFR 15-29 ml/min: Status: Acute Category: Medical Code(s): N18.4 - Chronic kidney disease, stage 4 (severe) (7) Pulmonary hypertension: Status: Suspected Category: Medical Code(s): I27.20 - Pulmonary hypertension, unspecified (8) Diabetes mellitus: Status: Acute Qualifiers: Diabetes mellitus complication status: without complication Diabetes mellitus type: type 1 Qualified Code(s): E10.9 - Type 1 diabetes mellitus without complications Category: Medical Code(s): E11.9 - Type 2 diabetes mellitus without complications (9) Atrial fibrillation, chronic: Status: Acute Category: Medical Code(s): I48.20 - Chronic atrial fibrillation, unspecified (10) COPD (chronic obstructive pulmonary disease): Status: Acute Qualifiers: COPD type: unspecified COPD Qualified Code(s): J44.9 - Chronic obstructive pulmonary disease, unspecified Category: Medical Code(s): J44.9 - Chronic obstructive pulmonary disease, unspecified (11) GERD (gastroesophageal reflux disease): Status: Acute Qualifiers: Esophagitis presence: esophagitis presence not specified Qualified Code(s): K21.9 - Gastro-esophageal reflux disease without esophagitis Category: Medical Code(s): K21.9 - Gastro-esophageal reflux disease without esophagitis (12) HTN (hypertension): Status: Acute Qualifiers: Hypertension type: unspecified Qualified Code(s): I10 - Essential (primary) hypertension Category: Medical Code(s): I10 - Essential (primary) hypertension Plan Irina Costa is a 59-year-old female with a history of autoimmune hemolytic anemia, mechanical mitral valve, HFrEF, chronic anticoagulation, hypertension, chronic A-fib. Presented to cardiology clinic and was found to be in increased respiratory distress with increased swelling in her legs. Concern for HFrEF exacerbation. Discussed case with cardiology, request admission for diuresis and further workup including right heart cath. I agreed to admit for further care. Showing response to Bumex drip. -3-1/2 L since admission. Has had 4 L out of output in the past 24 hours but is only -2 L in the past 24 hours. Continues to require stepdown level of care. Problems addressed as follows: Acute on chronic HFrEF Mechanical mitral valve Chronic A-fib - Continue warfarin for goal INR 2.5-3.5. INR 3.13 this morning. Repeat level ordered for the morning. - Previous EF of 33% on cardiac MRI. Repeat shows ECHO EF of 15 to 20%. Elevated RVSP. - BiV pacemaker placed 07/11/2024. - CardioMEMS in place but no longer transmitting information - Continue amiodarone 200 mg daily, metolazone 2.5 mg daily, spironolactone 50 mg daily. Holding beta-melany at this time due to risk of cardiogenic shock. - Continuing nitroprusside drip at 0.5 mcg and Bumex 2 mg/h. Strict monitoring of output. Having good response, net -7.7L. Cardiology planning for possible transition to oral tomorrow. - Discussed case with cardiology, recommend holding beta-melany due to risk for cardiogenic shock. Planning for right heart catheterization tomorrow. TRISTAN on CKD - See improvement in kidney function with diuresis. -Creatinine stable around 2.2 today. - Repeat CBC, CMP, magnesium ordered for the morning. #Chronic autoimmune hemolytic anemia #Angiodysplasia - Status post Venofer 200 mg during admission. - GI consulted, s/p EGD showing at least 11 angiodysplasia with ablation. ? After careful consideration in the setting of CAD and HFrEF, joint decision was made to between cardiology and GI to start estrogen to reduce risk of bleeding from angiodysplasia. #Type 2 diabetes ? Hemoglobin A1c 7.9% ? LDSSI, ACHS glucose checks. - Continue home insulin glargine 14 units nightly, holding Jardiance in the setting of TRISTAN. Chronic pain Gout: Continue oxycodone 10 mg 4 times a day as needed for severe pain; patient concerned about flare, will order ESR, CRP, uric acid level for the morning. Hypothyroid: Continue levothyroxine 25 mcg daily Depression: Continue Cymbalta 60 mg nightly, continue Xanax 0.5 mg 3 times a day as needed for anxiety Mechanical mitral valve-Continue Coumadin therapy Chronic atrial fibrillation-rate controlled. Continue home amiodarone. Hold home warfarin. DNR DVT prophylaxis: Continue warfarin per home regimen
[2025-04-11] MEDS: OXYCODONE 10MG W/APAP 325MG TABLET 1 EACH PO (23:11)
[2025-04-12] VITALS (19 sets, daily range): BP systolic 100–130; BP diastolic 48–98; PULSE 80–106; RESP 10–22; TEMP 36.8; O2SAT 90–97; BMI 30.6
[2025-04-12] MEDS: BUMETANIDE 10 MG in 0.9 % SODIUM CHLORIDE 60 ML 20 MG IV ×2 (00:16→04:53)
[2025-04-12 05:58] LABS: Basophils # 0.1 K/mm3 (0-0.2); Basophils % 0.7 % (0.1-2.0); Eosinophils # 0.3 Kmm3 (0.0-0.4); Eosinophils % 4.4 % (0.1-12.0); INR 3.72 (0.9-1.1); Immature Granulocytes # 0.04 10^3uL; Immature Granulocytes % 0.6 %; Lymphocytes # 0.3 K/mm3 (0.7-4.5); Lymphocytes % 4.2 % (10-50); Mean Corpuscular Hemoglobin 28.8 pg (27.0-31.2); Mean Corpuscular Volume 92.7 fl (81-99); Mean Platelet Volume 9.9 fl (7.4-10.4); Monocytes # 0.9 K/mm3 (0.1-1.0); Monocytes % 11.8 % (1.7-9.3); Neutrophils # 5.7 K/mm3 (1.8-7.8); Neutrophils % 78.3 % (37.0-80.0); Nucleated Red Blood Cells # 0 10^3/uL; Nucleated Red Blood Cells % 0 %; Platelet Count 219 K/mm3 (142-424); Prothrombin Time 37.5 seconds (10.1-12.5); Red Blood Count 3.13 M/mm3 (4.20-5.40); Red Cell Distribution Width 19.3 % (11.5-17.5); Red Cell Distribution Width-SD 65.5 fL; White Blood Count 7.2 K/mm3 (4.8-10.8)
[2025-04-12 06:02] LABS: Alanine Aminotransferase 21 U/L (12-78); Albumin Level 4.2 g/dl (3.5-5.0); Albumin/Globulin Ratio 1.5 (1.1-1.8); Alkaline Phosphatase 102 U/L (38-126); Anion Gap 11.3 mEq/L (5-15); Aspartate Amino Transferase 47 U/L (14-36); Bilirubin,Total 1.3 mg/dl (0.2-1.3); Blood Urea Nitrogen 67 mg/dl (7-17); Calcium 9.4 mg/dl (8.4-10.2); Carbon Dioxide 36 mmol/L (22.0-30.0); Chloride 86 mmol/L (98-107); Creatinine Clearance Estimated 30 mL/min (50-200); Estimated Glomerular Filt Rate 20 ml/min (>60); GFR (African American) 24 ML/MIN (>60); Globulin 2.8 g/dL (1.3-3.2); Glucose 131 mg/dl (74-100); Potassium 3.3 mmoL/L (3.5-5.1); Sodium 130 mmol/L (136-145)
[2025-04-12 06:04] LABS: MANUAL DIFFERENTIAL MANUAL DIFFERENTIAL (MANUAL DIFF)
[2025-04-12 06:22] LABS: Magnesium 1.8 mg/dl (1.6-2.3)
--- NOTE | 2025-04-12 07:27 | P.PN_ITS ---
Subjective *Date: 04/12/25 *Time: 07:27 Interval history: Awake and alert this morning. No abdominal complaints. Exam Data for Last 24 hours Vital signs and Labs for Last 24 Hours: Temp Pulse Resp BP Pulse Ox O2 Del Method O2 Flow Rate 98.3 F 90 10 L 112/55 L 97 Nasal Cannula 2 04/12/25 04:00 04/12/25 06:00 04/12/25 06:00 04/12/25 06:01 04/12/25 06:00 04/12/25 06:48 04/12/25 06:48 FiO2 28 04/10/25 19:03 Laboratory Results - last 24 hr 04/11/25 05:14: Magnesium 1.8 04/11/25 11:17: POC Glucose 199 H 04/11/25 16:50: POC Glucose 248 H 04/11/25 20:00: POC Glucose 239 H 04/12/25 05:31: WBC 7.2, RBC 3.13 L, Hgb 9.0 L, Hct 29.0 L, MCV 92.7, MCH 28.8, MCHC 31.0 L, RDW 19.3 H, Plt Count 219, MPV 9.9, Neut % (Auto) 78.3, Lymph % (Auto) 4.2 L, [place] % (Auto) 11.8 H, Eos % (Auto) 4.4, Baso % (Auto) 0.7, Neut # (Auto) 5.7, Lymph # (Auto) 0.3 L, [place] # (Auto) 0.9, Eos # (Auto) 0.3, Baso # (Auto) 0.1, PT 37.5 H, INR 3.72 H, Sodium 130 L, Potassium 3.3 L, Chloride 86 L, Carbon Dioxide 36 H, Anion Gap 11.3, BUN 67 H, Creatinine 2.50 H, Estimated Creat Clear 30, Estimated GFR 20 L, Est GFR ( Amer) 24 L, Glucose 131 H, Calcium 9.4, Magnesium 1.8, Total Bilirubin 1.3, AST 47 H, ALT 21, Alkaline Phosphatase 102, Total Protein 7.0, Albumin 4.2, Globulin 2.8, Albumin/Globulin Ratio 1.5 I & O for Last 24 hours: Intake & Output 04/09/25 04/10/25 04/11/25 04/12/25 23:59 23:59 23:59 23:59 Intake Total 2462.345 / 2462.345 1731.667 / 1226.250 5111.493 / 1204.493 92.333 / 92.333 Output Total 3900 / 3900 3475 / 3775 3150 / 3250 400 / 400 Balance -1437.655 / -1437.655 -1743.333 / -1903.333 -1945.507 / -2045.507 - 307.667 / -307.667 Weight 167 lb 9.6 oz 176 lb 9.6 oz 176 lb 14.03 oz 179 lb 7.3 oz Assessment and Plan *Assessment and plan (1) Angiodysplasia of gastrointestinal tract: Status: Acute Category: Medical Code(s): K55.20 - Angiodysplasia of colon without hemorrhage Plan 1. Angiodysplasia of the GI tract and stomach, duodenum and small bowel. She has had long-term occult GI blood loss. Given the degree of anemia, I did discuss the case with hematology and cardiology. Agreement was made that benefits of estradiol/estrogen would likely outweigh risks and I do feel that a trial is warranted. I also discussed this with the patient along with risk benefits and alternatives. I will begin estradiol today and have her continue this once daily. She will need follow-up as an outpatient to check hemogram, Hemoccult and iron studies.
[2025-04-12 07:40] LABS: Eosinophils % 2 % (0-3); Lymphocytes % 3 % (10-50); Monocytes % 11 % (2-9); Neutrophils % 84 % (42-76); Total Cells Counted 100
[2025-04-12 07:45] LABS: Platelet Estimate Normal
[2025-04-12 07:52] LABS: Hypochromasia 1+; Spherocytes 1+
[2025-04-12 07:53] LABS: Stomatocytes 1+
--- NOTE | 2025-04-12 08:26 | IR_ITS ---
APPROVED REPORT Patient Location: Inpatient PROCEDURES Right heart catheterization INDICATION Pulmonary hypertension, Systolic congestive heart failure Informed consent was obtained prior to the procedure. COMPLICATIONS NONE Estimated Blood Loss: LESS THAN 10 ML TECHNIQUE One percent lidocaine was used to anesthetize the right anterior aspect of the neck. A insurance examining clerk needle was used to identify the right internal jugular vein. Following this a larger cannulation needle was used to cannulate the right internal jugular vein and a wire was passed into the vein. Prior to the 7 [place] sheath being inserted the wire was confirmed under fluoroscopic guidance to be in the inferior vena cava. A 7 [place] sheath was introduced and a [place]-Violeta catheter was floated using hemodynamic waveforms in the pulmonary artery, right ventricle , and right atrium. Saturations were obtained in the pulmonary artery and the right atrium. At the end of the procedure the patient was transferred to the postop holding area in stable condition for sheath removal. ANGIOGRAPHIC RESULTS Right atrial pressure 25 mmHg Right ventricular 50/25 mmHg Pulmonary artery pressure 50/30 mmHg Pulmonary occlusion pressure 25 mmHg Right atrial saturation 52% Pulmonary artery saturation 53% Aortic saturation 98% Hemoglobin 9.8 Cardiac output 4.3 L/min IMPRESSION Moderate pulmonary hypertension Near equalization of filling pressures suggesting restrictive cardiomyopathy versus possible constrictive pericardial disease PLAN 1. Continue with diuresis 2. Consider cardiac MRI to evaluate pericardial thickness Electronically signed by : Tod Sawyer MD 04/12/2025 09:09:11
--- NOTE | 2025-04-12 08:30 | PC.NURSE ---
Pt off unit with Ameena from [id number]
[2025-04-12] MEDS: HEPARIN 1,000 UNITS/500ML NS (CATH LAB) 3000 UNIT IV (08:47)
[2025-04-12] MEDS: 0.9 % SODIUM CHLORIDE 500 ML 25 ML IV (08:47)
[2025-04-12] MEDS: LIDOCAINE 1% 10ML MDV 10 ML IJ (08:48)
[2025-04-12] MEDS: FENTANYL 100MCG/2ML VIAL 25 MCG IV (08:50)
--- NOTE | 2025-04-12 08:55 | EXP.CARD.PN ---
Subjective Subjective Date: 04/12/25 Time: 08:55 Principal diagnosis: CHF Interval history: 60 yo WF in bed in NAD plan for RHC today Cr up to 2.5 therefore will stop nipride and bumex Total urine output net -8 liters this admit Exam Data for Last 24 hours Vital signs and Labs for Last 24 Hours: Temp Pulse Resp BP Pulse Ox O2 Del Method O2 Flow Rate 98.3 F 86 13 111/48 L 96 Nasal Cannula 2 04/12/25 04:00 04/12/25 08:00 04/12/25 08:00 04/12/25 08:00 04/12/25 08:00 04/12/25 08:00 04/12/25 08:00 FiO2 28 04/10/25 19:03 Laboratory Results - last 24 hr 04/11/25 11:17: POC Glucose 199 H 04/11/25 16:50: POC Glucose 248 H 04/11/25 20:00: POC Glucose 239 H 04/12/25 05:31: WBC 7.2, RBC 3.13 L, Hgb 9.0 L, Hct 29.0 L, MCV 92.7, MCH 28.8, MCHC 31.0 L, RDW 19.3 H, Plt Count 219, MPV 9.9, Neut % (Auto) 78.3, Lymph % (Auto) 4.2 L, [place] % (Auto) 11.8 H, Eos % (Auto) 4.4, Baso % (Auto) 0.7, Neut # (Auto) 5.7, Lymph # (Auto) 0.3 L, [place] # (Auto) 0.9, Eos # (Auto) 0.3, Baso # (Auto) 0.1, Total Counted 100, Neutrophils % (Manual) 84 H, Lymphocytes % (Manual) 3 L, Monocytes % (Manual) 11 H, Eosinophils % (Manual) 2, Platelet Estimate Normal, Hypochromasia 1+, Spherocytes 1+, Stomatocytes 1+, PT 37.5 H, INR 3.72 H, Sodium 130 L, Potassium 3.3 L, Chloride 86 L, Carbon Dioxide 36 H, Anion Gap 11.3, BUN 67 H, Creatinine 2.50 H, Estimated Creat Clear 30, Estimated GFR 20 L, Est GFR ( Amer) 24 L, Glucose 131 H, Calcium 9.4, Magnesium 1.8, Total Bilirubin 1.3, AST 47 H, ALT 21, Alkaline Phosphatase 102, Total Protein 7.0, Albumin 4.2, Globulin 2.8, Albumin/Globulin Ratio 1.5 I & O for Last 24 hours: Intake & Output 04/09/25 04/10/25 04/11/25 04/12/25 11:59 11:59 11:59 11:59 Intake Total 1572.885 / 2019.590 8290.126 / 0702.047 4898.667 / 1813.667 963.826 / 963.826 Output Total 3050 / 3050 5075 / 5075 2900 / 2900 1750 / 1750 Balance -1477.115 / -1477.115 -3164.874 / -3164.874 -1086.333 / -1086.333 -786.174 / -786.174 Weight 167 lb 9.6 oz 176 lb 9.6 oz 176 lb 14.03 oz 179 lb 7.3 oz Constitutional Constitutional: no acute distress *Routine Respiratory Exam Respiratory: Present CTA bilaterally *Routine Cardiovascular Exam Cardiovascular: Present irregularly irregular Progress Note: A&P Assessment and plan (1) Angiodysplasia of gastrointestinal tract: Status: Acute (2) Acute on chronic HFrEF (heart failure with reduced ejection fraction): Status: Acute (3) Iron deficiency anemia: Status: Acute (4) Anticoagulation goal of INR 2.5 to 3.5: Status: Acute (5) Presence of biventricular AICD: Status: Acute (6) History of mitral valve replacement with mechanical valve: Status: Acute (7) CKD (chronic kidney disease) stage 4, GFR 15-29 ml/min: Status: Acute (8) Pulmonary hypertension: Status: Suspected (9) Diabetes mellitus: Status: Acute (10) Atrial fibrillation, chronic: Status: Acute (11) COPD (chronic obstructive pulmonary disease): Status: Acute (12) GERD (gastroesophageal reflux disease): Status: Acute (13) HTN (hypertension): Status: Acute Assessment and Plan Assessment and Plan for All Diagnoses:: Acute on Chronic HFrEF s/p TELETYPE ADJUSTER-D and CardioMEMS - Likely exacerbated secondary to worsening severe iron deficiency anemia, s/p transfusion and IV iron - Echo this admission shows reduced EF to 15 to 20% - diuresed 8 liters this admission - plan for Right heart cath to see if her pulmonary hypertension is reversible (related to CHF) or not. This would be critical to know if she is to be considered for heart transplant Paroxysmal atrial fibrillation with RVR - V-paced rhythm here - Continue amiodarone and warfarin - restart low dose metoprolol for heart rate control Mechanical mitral valve replaced - Normal function per office echo - Continue warfarin iron deficiency anemia related to continuous GI blood loss - Status post port placement - Hemoglobin 7 initially but transfused up to 9 - Iron repletion and blood transfusion this admission - s/p cauterization of angiodysplasias in stomach and duodenum, 04/11/2025, Dr. Mathew - recommendation of estrogen treatment which has started CKD 3 - Creatinine up to 2.5 today, baseline 2.0 - Monitor with daily labs RHC today showed moderate pulmonary hypertension with near equalization of pressures suggestive of restrictive cardiomyopathy vs possible constrictive pericardial disease. She did have a cardiac MRI in 04/2024 with normal pericardial thickness and no evidence of infiltrative disease, scarring, fibrosis, myocarditis or infarction. This was prior to implantation of her TELETYPE ADJUSTER-D and initiation of amiodarone in 06/2024 for recurrent PAF with RVR. Cr this afternoon was up to 2.7. Gave 500 ml of NS and if pt feels better then discharge home with follow up next week. Home med recommendations: Amiodarone 200 mg daily Spironolactone 50 mg daily Metolazone 2.5 mg daily Metoprolol succinate 25 mg daily Coumadin as previously taken Estradiol 1 mg daily Jardiance 10 mg daily Follow-up in our office in 1 to 2 weeks.
[2025-04-12] MEDS: MIDAZOLAM HCL 1MG/ML 5ML VIAL 1 MG IV (09:02)
[2025-04-12] MEDS: metOLazone 2.5MG TABLET 2.5 MG PO (09:26)
[2025-04-12] MEDS: estradioL 1 MG TABLET PO (09:26)
[2025-04-12] MEDS: SPIRONOLACTONE 25MG TABLET 50 MG PO (09:27)
[2025-04-12] MEDS: AMIODARONE 200MG TABLET 200 MG PO (09:27)
[2025-04-12] MEDS: METOPROLOL TARTRATE 25MG TABLET 25 MG PO (09:27)
[2025-04-12] MEDS: LEVOTHYROXINE 25MCG (0.025MG) TAB 25 MCG PO (09:40)
--- NOTE | 2025-04-12 10:52 | HMH.PTEV ---
Physical Therapy Evaluation Rehab PT IP Evaluation Start: 04/12/25 09:37 Freq: ONCE Status: Active Protocol: Document 04/12/25 10:43 [facility] (Rec: 04/12/25 10:51 [facility] [id number]) Subjective/History History History Per H&P: Ms. Costa is a 60- year-old female with multiple complex comorbidities including mechanical mitral valve, chronic anticoagulation , chronic A-fib, heart failure with a EF of 30%, diabetes, depression. She presented to cardiology clinic for follow- up. Concern for CHF exacerbation and volume overload with decompensation. Medicine was consulted for admission and further management of her decompensation. On arrival to the floor, has edema. Stable on room air. Appears more weak. Labs showing concern for worsening kidney function. She reports 5 days of worsening shortness of breath, swelling in her legs, poor response to diuretics at home. Denies any bloody stools. Chronic anemia noted on her labs. Previously at her baseline level of function prior to starting to feel bad 5 days ago. Denies fevers. Subjective Subjective Pt has been at [facility] acute care since 04/05. PT referral put in for d/c recommendations. Pt lives at home alone in a single story apartment with one FLEX. Pt normally IND with mobility. New diagnosis of cancer in past 12 No months? [facility] How much help from another person do you currently need... Turning from your back to your side None while in a flat bed without using bedrails? Moving from lying on back to sitting on None the side of a flat bed without using bedrails? Moving to and from a bed to a chair ( A little including a wheelchair)? Standing up from a chair using your arms A little ? (e.g., wheelchair, bedside chair) Walking in hospital room? A little Climbing 3-5 steps with a railing? A little Mobility Score 20 Mobility Level [facility] Mobility Calculator Mobility 6 Walk 10 steps or more Rehab PT IP Eval Objective Appearance Patient Behavior Appropriate,Cooperative Patient Orientation Person,Place,Situation Difficulty following instructions none Speech Pattern Clear Ambulation Patient Able to Ambulate Yes Ambulation Observation IP General Gait Pattern Observation Wide Based Gait Ambulation Distance (feet) 16 Ambulation Assistive Device None Ambulation Ability Supervision/Stand by Balance Ability to Arise Able, uses arms to help Sitting Balance Steady, safe Standing Balance Steady, wide stance Dynamic Sitting Balance Ability Good Dynamic Standing Balance Ability Good Transfers Bed Transfer Ability Independent Sit to Stand Bed Transfer Ability Independent Rehab PT IP prob,goals,plan Problems Date of Evaluation: 04/12/25 Rehab Potential Rehab Potential Innapropriate for Skilled Therapy Discharge Plan PT Discharge Plan Pt most appropriate to d/c home with PT services to address endurance and strength . Pt not appropriate for skilled acute care PT d/t being IND with mobility. Eval Complexity Eval Charge Codes 06537 - Moderate Complexity PHYSICIAN CERTIFICATION: I certify the specified therapy services for Irina Costa are required, authorized, and reviewed every 30 days.
[2025-04-12 11:06] LABS: POC Glucose,Bedside 298 (70-110)
[2025-04-12 13:28] LABS: Chloride 87 mmol/L (98-107); Potassium 3.4 mmoL/L (3.5-5.1); Sodium 130 mmol/L (136-145)
[2025-04-12 13:31] LABS: Blood Urea Nitrogen 69 mg/dl (7-17); Creatinine Clearance Estimated 28 mL/min (50-200); Estimated Glomerular Filt Rate 18 ml/min (>60); GFR (African American) 22 ML/MIN (>60)
[2025-04-12 13:32] LABS: Anion Gap 11.4 mEq/L (5-15); Calcium 9.8 mg/dl (8.4-10.2); Carbon Dioxide 35 mmol/L (22.0-30.0); Glucose 230 mg/dl (74-100)
--- NOTE | 2025-04-12 14:19 | HMH.OTEV ---
OT Inpatient Evaluation Rehab OT IP Evaluation Start: 04/12/25 09:37 Freq: ONCE Status: Active Protocol: Document 04/12/25 14:09 [facility] (Rec: 04/12/25 14:18 [facility] [id number]) Rehab OT IP Assessment Subjective History Pt oriented x 3 on arrival. Pt admitted to [facility] on 04/05/25 due to CHF. History and physical: Ms. Costa is a 60-year-old female with multiple complex comorbidities including mechanical mitral valve, chronic anticoagulation, chronic A-fib, heart failure with a EF of 30%, diabetes, depression. She presented to cardiology clinic for follow- up. Concern for CHF exacerbation and volume overload with decompensation. Medicine was consulted for admission and further management of her decompensation. On arrival to the floor, has edema. Stable on room air. Appears more weak. Labs showing concern for worsening kidney function. She reports 5 days of worsening shortness of breath, swelling in her legs, poor response to diuretics at home. Denies any bloody stools. Chronic anemia noted on her labs. Previously at her baseline level of function prior to starting to feel bad 5 days ago. Denies fevers Subjective Prior to being in the hospital , pt lived alone. Pt claims she was independent with all ADLs and IADLs. Pt did not use any type of AE during functional transfers. Objective Patient Orientation Person,Place,Birthday Right Upper Extremity Gross ROM WFL Left Upper Extremity Gross ROM WFL Bed Mobility bed mobility-scooting,bed mobility - supine/sit Assist Level Supervision/Stand by Transfer Training Sit/Stand Transfer Assist Level Supervision/Stand by Chair Transfer Ability Supervision/Stand by Chair Transfer Technique Sit to/from Ambulatory Chair Transfer Assistive Devices None Rehab OT IP prob,goals,plan Problems Date of Evaluation: 04/12/25 Rehab Potential Rehab Potential Innapropriate for Skilled Therapy Discharge Plan OT Discharge Plan Pt appears to be at her baseline. Pt can return home once she is medically stable per physician. Eval Complexity Eval Charge Codes 83789 - Moderate Complexity PHYSICIAN CERTIFICATION: I certify the specified therapy services for Irina Costa are required, authorized, and reviewed every 30 days.
[2025-04-12 14:28] LABS: CATHL Arterial O2 SAT 53.8 % (90-100); CATHL Venous O2 SAT 52.7 % (75-80)
[2025-04-12] MEDS: 0.9 % SODIUM CHLORIDE 1000ML 500 ML 250 ML IV (14:42)
[2025-04-12 15:16] LABS: POC Glucose,Bedside 155 (70-110)
--- NOTE | 2025-04-12 16:21 | EXP.DC.SUM ---
General Admission date:: 04/05/25 HPI HPI HPI: Ms. Costa is a 60-year-old female with multiple complex comorbidities including mechanical mitral valve, chronic anticoagulation, chronic A-fib, heart failure with a EF of 30%, diabetes, depression. She presented to cardiology clinic for follow-up. Concern for CHF exacerbation and volume overload with decompensation. Medicine was consulted for admission and further management of her decompensation. On arrival to the floor, has edema. Stable on room air. Appears more weak. Labs showing concern for worsening kidney function. She reports 5 days of worsening shortness of breath, swelling in her legs, poor response to diuretics at home. Denies any bloody stools. Chronic anemia noted on her labs. Previously at her baseline level of function prior to starting to feel bad 5 days ago. Denies fevers. Hospital Course Hospital Course Hospital Course: Irina Costa is a 59-year-old female with a history of autoimmune hemolytic anemia, mechanical mitral valve, HFrEF, chronic anticoagulation, hypertension, chronic A-fib. Presented to cardiology clinic and was found to be in increased respiratory distress with increased swelling in her legs. Concern for HFrEF exacerbation. Discussed case with cardiology, request admission for diuresis and further workup including right heart cath. I agreed to admit for further care. Showing response to Bumex drip. -3-1/2 L since admission. Has had 4 L out of output in the past 24 hours but is only -2 L in the past 24 hours. Continues to require stepdown level of care. Problems addressed as follows: Acute on chronic HFrEF Mechanical mitral valve Chronic A-fib - Previous EF of 33% on cardiac MRI. Repeat shows ECHO EF of 15 to 20%. Elevated RVSP. - BiV pacemaker placed 07/11/2024. CardioMEMS in place but no longer transmitting information ? Clinically improved with IV Bumex diuresis, nitroprusside drip. Net -7.6 L. ? Cardiology evaluated, ultimately patient will need referral to heart transplant due to progressive worsening of heart function in spite of GDMT. - Continue Bumex 2 mg twice daily, metoprolol succinate 25 mg, Jardiance 10 mg, amiodarone 200 mg daily, spironolactone 50 mg daily. Metolazone can be used on an as needed basis for edema. ? Will closely follow-up with cardiology within 1 week with plan to refer to [facility]. #Chronic autoimmune hemolytic anemia #Angiodysplasia GI bleed - Status post Venofer 200 mg during admission. - GI consulted, s/p EGD showing at least 11 angiodysplasia with ablation. ? After careful consideration in the setting of CAD and HFrEF, joint decision was made to between cardiology and GI to start estrogen to reduce risk of bleeding from angiodysplasia. #TRISTAN on CKD - In the setting of aggressive IV diuresis. Will follow-up with cardiology for repeat BMP. Creatinine currently is at 2.7. #Type 2 diabetes ? Hemoglobin A1c 7.9% ? LDSSI, ACHS glucose checks. - Continue home insulin glargine 14 units nightly. Chronic pain Gout: Continue oxycodone 10 mg 4 times a day as needed for severe pain; patient concerned about flare, will order ESR, CRP, uric acid level for the morning. Hypothyroid: Continue levothyroxine 25 mcg daily Depression: Continue Cymbalta 60 mg nightly, continue Xanax 0.5 mg 3 times a day as needed for anxiety Mechanical mitral valve-Continue Coumadin therapy Chronic atrial fibrillation-rate controlled. Continue home amiodarone. Exam Data for Last 24 hours Vital signs and Labs for Last 24 Hours: Temp Pulse Resp BP Pulse Ox O2 Del Method O2 Flow Rate 98.3 F 80 19 130/80 96 Nasal Cannula 2 04/12/25 16:00 04/12/25 16:00 04/12/25 16:00 04/12/25 16:00 04/12/25 16:00 04/12/25 16:00 04/12/25 16:00 FiO2 28 04/10/25 19:03 Laboratory Results - last 24 hr 04/11/25 16:50: POC Glucose 248 H 04/11/25 20:00: POC Glucose 239 H 04/12/25 05:31: WBC 7.2, RBC 3.13 L, Hgb 9.0 L, Hct 29.0 L, MCV 92.7, MCH 28.8, MCHC 31.0 L, RDW 19.3 H, Plt Count 219, MPV 9.9, Neut % (Auto) 78.3, Lymph % (Auto) 4.2 L, [place] % (Auto) 11.8 H, Eos % (Auto) 4.4, Baso % (Auto) 0.7, Neut # (Auto) 5.7, Lymph # (Auto) 0.3 L, [place] # (Auto) 0.9, Eos # (Auto) 0.3, Baso # (Auto) 0.1, Total Counted 100, Neutrophils % (Manual) 84 H, Lymphocytes % (Manual) 3 L, Monocytes % (Manual) 11 H, Eosinophils % (Manual) 2, Platelet Estimate Normal, Hypochromasia 1+, Spherocytes 1+, Stomatocytes 1+, PT 37.5 H, INR 3.72 H, Sodium 130 L, Potassium 3.3 L, Chloride 86 L, Carbon Dioxide 36 H, Anion Gap 11.3, BUN 67 H, Creatinine 2.50 H, Estimated Creat Clear 30, Estimated GFR 20 L, Est GFR ( Amer) 24 L, Glucose 131 H, Calcium 9.4, Magnesium 1.8, Total Bilirubin 1.3, AST 47 H, ALT 21, Alkaline Phosphatase 102, Total Protein 7.0, Albumin 4.2, Globulin 2.8, Albumin/Globulin Ratio 1.5 04/12/25 06:13: POC Glucose 155 H 04/12/25 10:59: POC Glucose 298 H 04/12/25 13:15: Sodium 130 L, Potassium 3.4 L, Chloride 87 L, Carbon Dioxide 35 H, Anion Gap 11.4, BUN 69 H, Creatinine 2.70 H, Estimated Creat Clear 28, Estimated GFR 18 L*, Est GFR ( Amer) 22 L, Glucose 230 H D, Calcium 9.8 04/12/25 14:27: ABG O2 Sat (Measured) 53.8 L, POC VBG O2 Sat (Nayla) 52.7 L I & O for Last 24 hours: Intake & Output 04/09/25 04/10/25 04/11/25 04/12/25 23:59 23:59 23:59 23:59 Intake Total 2462.345 / 2462.345 1731.667 / 5828.810 7343.493 / 1204.493 572.333 / 572.333 Output Total 3900 / 3900 3475 / 3775 3150 / 3250 600 / 600 Balance -1437.655 / -1437.655 -1743.333 / -1903.333 -1945.507 / -2045.507 -.667 / -667 Weight 76.022 kg 80.104 kg 80.23 kg 81.4 kg Constitutional Constitutional: no acute distress *Routine HEENT Exam Head: Present normocephalic Eye: Present EOMI and PERRL ENT: Present mucous membranes moist *Routine Neck Exam Neck: Present supple; Absent lymphadenopathy *Routine Respiratory Exam Respiratory: Present CTA bilaterally *Routine Cardiovascular Exam Cardiovascular: Present RRR *Routine Abdominal Exam Abdominal: Present soft and normoactive bowel sounds; Absent tenderness *Routine Extremities Exam Extremities: Absent cyanosis, clubbing or edema *Routine Skin Exam Skin: Present warm; Absent rash *Routine Neurological Exam Neurological: Present alert and oriented X3 Results Data Completed and Pending Labs on day of discharge: Labs from last 24 hours 04/12/25 04/12/25 04/12/25 14:27 13:15 10:59 WBC RBC Hgb Hct MCV MCH MCHC RDW Plt Count MPV Neut % (Auto) Lymph % (Auto) [place] % (Auto) Eos % (Auto) Baso % (Auto) Neut # (Auto) Lymph # (Auto) [place] # (Auto) Eos # (Auto) Baso # (Auto) Total Counted Neutrophils % (Manual) Lymphocytes % (Manual) Monocytes % (Manual) Eosinophils % (Manual) Platelet Estimate Hypochromasia Spherocytes Stomatocytes PT INR ABG O2 Sat (Measured) 53.8 L POC VBG O2 Sat (Nayla) 52.7 L Sodium 130 L Potassium 3.4 L Chloride 87 L Carbon Dioxide 35 H Anion Gap 11.4 BUN 69 H Creatinine 2.70 H Estimated Creat Clear 28 Estimated GFR 18 L* Est GFR ( Amer) 22 L Glucose 230 H D POC Glucose 298 H Calcium 9.8 Magnesium Total Bilirubin AST ALT Alkaline Phosphatase Total Protein Albumin Globulin Albumin/Globulin Ratio 04/12/25 04/12/25 04/11/25 06:13 05:31 20:00 WBC 7.2 RBC 3.13 L Hgb 9.0 L Hct 29.0 L MCV 92.7 MCH 28.8 MCHC 31.0 L RDW 19.3 H Plt Count 219 MPV 9.9 Neut % (Auto) 78.3 Lymph % (Auto) 4.2 L [place] % (Auto) 11.8 H Eos % (Auto) 4.4 Baso % (Auto) 0.7 Neut # (Auto) 5.7 Lymph # (Auto) 0.3 L [place] # (Auto) 0.9 Eos # (Auto) 0.3 Baso # (Auto) 0.1 Total Counted 100 Neutrophils % (Manual) 84 H Lymphocytes % (Manual) 3 L Monocytes % (Manual) 11 H Eosinophils % (Manual) 2 Platelet Estimate Normal Hypochromasia 1+ Spherocytes 1+ Stomatocytes 1+ PT 37.5 H INR 3.72 H ABG O2 Sat (Measured) POC VBG O2 Sat (Nayla) Sodium 130 L Potassium 3.3 L Chloride 86 L Carbon Dioxide 36 H Anion Gap 11.3 BUN 67 H Creatinine 2.50 H Estimated Creat Clear 30 Estimated GFR 20 L Est GFR ( Amer) 24 L Glucose 131 H POC Glucose 155 H 239 H Calcium 9.4 Magnesium 1.8 Total Bilirubin 1.3 AST 47 H ALT 21 Alkaline Phosphatase 102 Total Protein 7.0 Albumin 4.2 Globulin 2.8 Albumin/Globulin Ratio 1.5 04/11/25 16:50 WBC RBC Hgb Hct MCV MCH MCHC RDW Plt Count MPV Neut % (Auto) Lymph % (Auto) [place] % (Auto) Eos % (Auto) Baso % (Auto) Neut # (Auto) Lymph # (Auto) [place] # (Auto) Eos # (Auto) Baso # (Auto) Total Counted Neutrophils % (Manual) Lymphocytes % (Manual) Monocytes % (Manual) Eosinophils % (Manual) Platelet Estimate Hypochromasia Spherocytes Stomatocytes PT INR ABG O2 Sat (Measured) POC VBG O2 Sat (Nayla) Sodium Potassium Chloride Carbon Dioxide Anion Gap BUN Creatinine Estimated Creat Clear Estimated GFR Est GFR ( Amer) Glucose POC Glucose 248 H Calcium Magnesium Total Bilirubin AST ALT Alkaline Phosphatase Total Protein Albumin Globulin Albumin/Globulin Ratio DS: Diagnosis Discharge Diagnosis (1) Angiodysplasia of gastrointestinal tract: Status: Acute Code(s): K55.20 - Angiodysplasia of colon without hemorrhage (2) Acute on chronic HFrEF (heart failure with reduced ejection fraction): Status: Acute Code(s): I50.23 - Acute on chronic systolic (congestive) heart failure (3) Iron deficiency anemia: Status: Acute Code(s): D50.9 - Iron deficiency anemia, unspecified (4) Anticoagulation goal of INR 2.5 to 3.5: Status: Acute Code(s): Z51.81 - Encounter for therapeutic drug level monitoring; Z79.01 - shelter (current) use of anticoagulants (5) Presence of biventricular AICD: Status: Acute Code(s): Z95.810 - Presence of automatic (implantable) cardiac defibrillator (6) History of mitral valve replacement with mechanical valve: Status: Acute Code(s): Z95.2 - Presence of prosthetic heart valve (7) CKD (chronic kidney disease) stage 4, GFR 15-29 ml/min: Status: Acute Code(s): N18.4 - Chronic kidney disease, stage 4 (severe) (8) Pulmonary hypertension: Status: Suspected Code(s): I27.20 - Pulmonary hypertension, unspecified (9) Diabetes mellitus: Status: Acute Code(s): E11.9 - Type 2 diabetes mellitus without complications Qualifiers: Diabetes mellitus complication status: without complication Diabetes mellitus type: type 1 Qualified Code(s): E10.9 - Type 1 diabetes mellitus without complications (10) Atrial fibrillation, chronic: Status: Acute Code(s): I48.20 - Chronic atrial fibrillation, unspecified (11) COPD (chronic obstructive pulmonary disease): Status: Acute Code(s): J44.9 - Chronic obstructive pulmonary disease, unspecified Qualifiers: COPD type: unspecified COPD Qualified Code(s): J44.9 - Chronic obstructive pulmonary disease, unspecified (12) GERD (gastroesophageal reflux disease): Status: Acute Code(s): K21.9 - Gastro-esophageal reflux disease without esophagitis Qualifiers: Esophagitis presence: esophagitis presence not specified Qualified Code(s): K21.9 - Gastro-esophageal reflux disease without esophagitis (13) HTN (hypertension): Status: Acute Code(s): I10 - Essential (primary) hypertension Qualifiers: Hypertension type: unspecified Qualified Code(s): I10 - Essential (primary) hypertension Meds Home Medications and Allergies Home Medications ?Medication ?Instructions ?Recorded ?Confirmed ?Type oxycodone-acetaminophen 10 mg-325 1 tab PO QID PRN Pain, Moderate 05/23/18 04/19/25 History mg tablet (Percocet) alprazolam 0.5 mg tablet (Xanax) 0.5 mg PO TID PRN Anxiety 11/29/19 04/19/25 History levothyroxine 25 mcg tablet 25 mcg PO DAILY 06/05/21 04/19/25 History insulin glargine 100 60 units SQ DAILY 02/22/22 04/19/25 History unit-lixisenatide 33 mcg/mL subcutaneous pen (Soliqua 100/33) febuxostat 40 mg tablet 40 mg PO DAILY 02/09/23 04/19/25 History potassium chloride 20 mEq 20 meq PO BID 04/15/23 04/19/25 History tablet,extended release(part/cryst) calcitriol 0.25 mcg capsule 0.25 mcg PO DAILY 10/30/23 04/19/25 History duloxetine 60 mg capsule,delayed 60 mg PO HS 03/06/24 04/19/25 History release empagliflozin 10 mg tablet 10 mg PO DAILY #30 tabs 07/17/24 04/19/25 Rx (Jardiance) spironolactone 50 mg tablet 50 mg PO DAILY 30 days #180 tabs 01/05/25 04/19/25 Rx warfarin 4 mg tablet 2 mg (1/2 x 4 mg) PO DAILY 30 days 01/05/25 04/19/25 Rx #0 tabs insulin glargine 100 unit/mL (3 14 unit SQ HS 01/17/25 04/19/25 History mL) subcutaneous pen (Lantus Solostar U-100 Insulin) amiodarone 200 mg tablet 200 mg PO DAILY #90 tabs 04/02/25 04/19/25 Rx blood-glucose sensor (Dexcom G6 #1 ea 04/05/25 04/19/25 History Sensor device) blood-glucose transmitter (Dexcom #1 ea 04/05/25 04/19/25 History G6 Transmitter device) blood-glucose,coldfusion,cont #1 ea 04/05/25 04/19/25 History (Dexcom G6 Reception Specialist) dexlansoprazole 60 mg 60 mg PO DAILY 04/05/25 04/19/25 History capsule,biphase delayed release metolazone 2.5 mg tablet 2.5 mg PO DAILY PRN edema 04/05/25 04/19/25 History pen needle, diabetic 32 gauge x #1,200 ea 04/05/25 04/19/25 History bumetanide 2 mg tablet 2 mg PO BID #60 tabs 04/12/25 04/19/25 Rx estradiol 1 mg tablet (Estrace) 1 mg PO DAILY 30 days #30 tabs 04/12/25 04/19/25 Rx metoprolol succinate 25 mg 50 mg (2 x 25 mg) PO DAILY 30 days 04/12/25 04/19/25 Rx tablet,extended release 24 hr #60 tabs New Prescriptions to Start Prescriptions: bumetanide Sandeep Hopson estradiol [Estrace] Sandeep Hopson metoprolol succinate Sandeep Hopson Allergies Allergy/AdvReac Type Severity Reaction Status Date / Time codeine (CODEINE) Allergy Unknown nausea, Verified 04/19/25 13:58 swelling Corticosteroids Allergy Unknown Unknown Verified 04/19/25 13:58 (Glucocorticoids) allergy (CORTICOSTEROIDS reaction (GLUCOCORTICOIDS)) NSAIDS (Non-Steroidal Allergy Unknown Other Verified 04/19/25 13:58 Anti-Inflamma rosuvastatin (From CRESTOR) Allergy Unknown Unknown Verified 04/19/25 13:58 allergy reaction theophylline (From DAVID-DUR) Allergy Unknown Unknown Verified 04/19/25 13:58 allergy reaction allopurinol Allergy Hives Verified 04/19/25 13:58 Iodinated Contrast Media AdvReac Severe shuts Verified 04/19/25 13:58 (IODINATED CONTRAST- ORAL kidneys AND IV DYE) down and bleeding buprenorphine (From BUPRENEX) AdvReac Intermediate Nausea Verified 04/19/25 13:58 levofloxacin (From Levaquin) AdvReac Other Verified 04/19/25 13:58 lisinopril AdvReac Cough Verified 04/19/25 13:58 prednisone AdvReac Unknown Verified 04/19/25 13:58 allergy reaction sacubitril (From Entresto) AdvReac Hypotension Verified 04/19/25 13:58 valsartan (From Entresto) AdvReac Hypotension Verified 04/19/25 13:58 Discharge Plan Disposition Patient Disposition: Home, Self-Care Condition: Fair Discharge Order Discharge Orders: Discharge Order (Routine); Ordered 04/12/25 Ordered By: Sandeep Hopson Follow up Plan Follow up with: Shane Serrano PA [Physician Merchandising Team Lead, Cardiology] - 04/16/25 Prescriptions/Medication Reconciliation: New estradiol [Estrace] 1 mg Tablet 1 mg PO DAILY 30 Days Qty: 30 0RF metoprolol succinate 25 mg tablet extended release 24 hr 50 mg PO DAILY 30 Days Qty: 60 0RF Continued oxycodone-acetaminophen [Percocet] 10-325 mg tablet 1 tab PO QID PRN (Reason: Pain, Moderate) alprazolam [Xanax] 0.5 mg tablet 0.5 mg PO TID PRN (Reason: Anxiety) potassium chloride 20 mEq tablet,ER particles/crystals 20 meq PO BID duloxetine 60 mg capsule,delayed release(DR/EC) 60 mg PO HS Patient Comments: TAKE (1) CAPSULE BY MOUTH ONCE A DAY. (DME) Dexcom G6 Transmitter Device See Rx Instructions .ROUTE .MEDSUPPLY Qty: 1 Patient Comments: USE DIRECTED. Rx Instructions: As directed (DME) pen needle, diabetic 32 gauge x 5/32 needle See Rx Instructions .ROUTE .MEDSUPPLY Qty: 1200 Patient Comments: USE TWICE DAILY Rx Instructions: As directed dexlansoprazole 60 mg capsule,biphase delayed releas 60 mg PO DAILY Patient Comments: TAKE (1) CAPSULE BY MOUTH ONCE A DAY. (DME) Dexcom G6 Sensor Device See Rx Instructions .ROUTE .MEDSUPPLY Qty: 1 Patient Comments: CHANGE EVERY 10 DAYS DIRECTED. Rx Instructions: As directed ([facility] [place]) Dexcom G6 Reception Specialist Misc See Rx Instructions .ROUTE .MEDSUPPLY Qty: 1 Patient Comments: USE DIRECTED. Rx Instructions: As directed metolazone 2.5 mg tablet 2.5 mg PO DAILY PRN (Reason: edema) amiodarone 200 mg tablet 200 mg PO DAILY Qty: 90 3RF levothyroxine 25 MCG tablet 25 mcg PO DAILY calcitriol 0.25 mcg Capsule 0.25 mcg PO DAILY Soliqua 100/33 3 ML insulin pen 60 units SQ DAILY febuxostat 40 mg tablet 40 mg PO DAILY insulin glargine [Lantus Solostar U-100 Insulin] 100 unit/mL (3 mL) insulin pen 14 unit SQ HS Patient Comments: INJECT 10 UNITS SUB-Q AT BEDTIME. EACH PEN EXPIRES 28 DAYS AFTER FIRST USE. Jardiance 10 mg tablet 10 mg PO DAILY Qty: 30 1RF warfarin 4 mg tablet 2 mg PO DAILY 30 Days Qty: 0 0RF spironolactone 50 mg tablet 50 mg PO DAILY 30 Days Qty: 180 3RF bumetanide 2 mg tablet 2 mg PO BID Qty: 60 5RF Discontinued metoprolol succinate 100 mg tablet extended release 24 hr 100 mg PO BID spironolactone 50 mg tablet 50 mg PO BID Problem Reconciliation Problems Reviewed?: Yes Patient Discharge Instructions Patient Instructions: DI for Heart Failure, DI for Cardiac Catheterization, DI for Surgical Site Infection, DI for Moderate Sedation, Coumadin Vitamin K/ Diet, Stop Light COPD, Stop Light Heart Failure Print Language: Taiwanese Providers Primary Care Provider: Reji Castro Admit Provider: Neptali Herbert Attending Provider: Neptali Herbert
--- NOTE | 2025-04-13 13:00 | SW/DCPLANNER ---
Spoke with patient on the phone. Patient stated that she is doing good. Patient stated that she has called and made her follow up appointment with DR. Sawyer. Patient stated that she was able to black pickler [facility]. Patient stated that she has no concerns or questions at this time. Yasmin Gilliland
--- NOTE | 2025-04-17 14:15 | CARE MANAGER ---
Attempted to contact patient x2. Left VM message. JEREMIAH Hillman
== END 2025-04-12 18:01 | disposition home or self-care (01) | DRG 286 ==
LOC: 2ND 04-07 13:59 → ICU 04-07 20:14
PROVIDERS: Internal Medicine; Internal Medicine Gastroenterology; Physician Assistant; Student in an Organized Health Care Education/Training Program; Admitting Provider Internal Medicine Adolescent Medicine; PCP Internal Medicine Adolescent Medicine; Visit Provider Internal Medicine Adolescent Medicine
PROC: 0DJ08ZZ Inspection of Upper Intestinal Tract, Via Natural or Artificial Opening Endoscopic (ICD-10-PCS; principal; 2025-04-11 12:00)
PROC: 4A023N6 Measurement of Cardiac Sampling and Pressure, Right Heart, Percutaneous Approach (ICD-10-PCS; CPT 93451; principal; 2025-04-12 08:20)
DX: I13.0 Hypertensive heart and chronic kidney disease with heart failure and stage 1 through stage 4 chronic kidney disease, or unspecified chronic kidney disease (principal); I50.23 Acute on chronic systolic (congestive) heart failure; K31.811 Angiodysplasia of stomach and duodenum with bleeding; N18.4 Chronic kidney disease, stage 4 (severe); I48.20 Chronic atrial fibrillation, unspecified; N17.9 Acute kidney failure, unspecified; D59.19 Other autoimmune hemolytic anemia; G89.29 Other chronic pain; E11.22 Type 2 diabetes mellitus with diabetic chronic kidney disease; E55.9 Vitamin D deficiency, unspecified; F32.A Depression, unspecified; Z66 Do not resuscitate; D63.1 Anemia in chronic kidney disease; I27.20 Pulmonary hypertension, unspecified; I25.10 Atherosclerotic heart disease of native coronary artery without angina pectoris; E03.9 Hypothyroidism, unspecified; J44.9 Chronic obstructive pulmonary disease, unspecified; K21.9 Gastro-esophageal reflux disease without esophagitis; M10.9 Gout, unspecified; D50.0 Iron deficiency anemia secondary to blood loss (chronic); I25.2 Old myocardial infarction; Z79.84 Long term (current) use of oral hypoglycemic drugs; Z79.01 Long term (current) use of anticoagulants; Z79.4 Long term (current) use of insulin; Z79.899 Other long term (current) drug therapy; Z79.82 Long term (current) use of aspirin; Z79.890 Hormone replacement therapy; Z95.2 Presence of prosthetic heart valve; Z91.041 Radiographic dye allergy status; Z88.5 Allergy status to narcotic agent; Z88.1 Allergy status to other antibiotic agents; Z88.8 Allergy status to other drugs, medicaments and biological substances; Z87.891 Personal history of nicotine dependence; Z95.810 Presence of automatic (implantable) cardiac defibrillator
CPT/HCPCS: 93451; 36415; 71045; 80048; 80053; 80061; 82810; 82962; 83540; 83550; 83735; 83880; 84550; 85007; 85014; 85018; 85025; 85610; 85651; 86140; 86850; 93005; 93306; 97162; 97166; 99152; C1894; C2618; J1200; J1642; J1644; J1756; J1939; J2250; J3010; J7030; J7060; P9016

== ENCOUNTER 2025-04-19 12:57 | Outpatient (CLI) | payer MEDICARE, SELFPAY ==
[2025-04-19 13:50] LABS: PHA INR Fingerstick 3.1 (0.9-1.1)
[2025-04-19] MEDS: SODIUM CHLORIDE 0.9% 10ML FLUSH SYRINGE 10 ML IV (14:55)
[2025-04-19 15:23] LABS: Basophils # 0.1 K/mm3 (0-0.2); Basophils % 0.8 % (0.1-2.0); Eosinophils # 0.2 Kmm3 (0.0-0.4); Eosinophils % 2.8 % (0.1-12.0); Hematocrit 31.5 % (37.0-47.0); Hemoglobin 9.3 g/dL (12.2-16.2); Immature Granulocytes # 0.06 10^3uL; Immature Granulocytes % 0.8 %; Lymphocytes # 0.2 K/mm3 (0.7-4.5); Lymphocytes % 3.1 % (10-50); Mean Corpuscular HGB Conc 29.5 g/dL (31.8-35.4); Mean Corpuscular Hemoglobin 27.5 pg (27.0-31.2); Mean Corpuscular Volume 93.2 fl (81-99); Monocytes # 0.9 K/mm3 (0.1-1.0); Monocytes % 12.9 % (1.7-9.3); Neutrophils # 5.7 K/mm3 (1.8-7.8); Neutrophils % 79.6 % (37.0-80.0); Nucleated Red Blood Cells # 0 10^3/uL; Nucleated Red Blood Cells % 0 %; Platelet Count 278 K/mm3 (142-424); Red Blood Count 3.38 M/mm3 (4.20-5.40); Red Cell Distribution Width 18.5 % (11.5-17.5); Red Cell Distribution Width-SD 63.2 fL; White Blood Count 7.2 K/mm3 (4.8-10.8)
[2025-04-19 15:28] LABS: MANUAL DIFFERENTIAL MANUAL DIFFERENTIAL (MANUAL DIFF)
[2025-04-19 15:45] LABS: Alanine Aminotransferase 22 U/L (12-78); Albumin Level 4.4 g/dl (3.5-5.0); Alkaline Phosphatase 115 U/L (38-126); Anion Gap 12.8 mEq/L (5-15); Aspartate Amino Transferase 40 U/L (14-36); Bilirubin,Direct 0.8 mg/dl (0.0-0.4); Bilirubin,Indirect 0.5 mg/dL (0.0-0.9); Bilirubin,Total 1.3 mg/dl (0.2-1.3); Bilirubin,Unconjugated 0.5 mg/dL (0.0-1.1); Blood Urea Nitrogen 69 mg/dl (7-17); Calcium 9.9 mg/dl (8.4-10.2); Carbon Dioxide 32 mmol/L (22.0-30.0); Chloride 93 mmol/L (98-107); Chol/HDL Ratio 6.6 (1-3.5); Cholesterol 164 mg/dl (140-200); Estimated Glomerular Filt Rate 25 ml/min (>60); GFR (African American) 31 ML/MIN (>60); Glucose 97 mg/dl (74-100); HDL Cholesterol 25 mg/dl (40-60); Magnesium 2.3 mg/dl (1.6-2.3); Potassium 3.8 mmoL/L (3.5-5.1); Sodium 134 mmol/L (136-145); Total Protein,Serum 7.7 g/dl (6.3-8.2); Triglycerides 117 mg/dl (30-150); VLDL Cholesterol 23 mg/dL (0-40)
[2025-04-19 15:56] LABS: Eosinophils % 2 % (0-3); Lymphocytes % 3 % (10-50); Monocytes % 11 % (2-9); Neutrophils % 84 % (42-76); Total Cells Counted 100
[2025-04-19 15:58] LABS: Anisocytosis 1+; Hypochromasia 1+
[2025-04-19 15:59] LABS: Ovalocytes 1+
[2025-04-19 16:00] LABS: Platelet Estimate Normal
[2025-04-19 16:01] LABS: Erythrocyte Sedimentation Rate 49 mm/hr (0-30)
[2025-04-19 16:16] LABS: Thyroid Stimulating Hormone 4.86 uIU/mL (0.465-4.68)
[2025-04-19 21:35] LABS: Free T4 (Free Thyroxine) 2.08 ng/dl (0.78-2.19)
== END 2025-04-19 15:15 | disposition home or self-care (01) ==
LOC: ACC 12:59 → INF 15:05
PROVIDERS: Internal Medicine; PCP Internal Medicine Adolescent Medicine; Visit Provider Internal Medicine Medical Oncology
DX: D64.9 Anemia, unspecified (principal); I50.23 Acute on chronic systolic (congestive) heart failure; I31.1 Chronic constrictive pericarditis; I42.5 Other restrictive cardiomyopathy; Z95.810 Presence of automatic (implantable) cardiac defibrillator; Z79.01 Long term (current) use of anticoagulants; I50.20 Unspecified systolic (congestive) heart failure; I27.20 Pulmonary hypertension, unspecified; E10.9 Type 1 diabetes mellitus without complications; I48.20 Chronic atrial fibrillation, unspecified; I42.9 Cardiomyopathy, unspecified; I10 Essential (primary) hypertension
CPT/HCPCS: 36591; 80048; 80061; 80076; 83735; 84439; 84443; 85007; 85025; 85610; 85651; 99211; G0463; J1642

== ENCOUNTER 2025-04-25 14:47 | Outpatient (CLI) | payer MEDICARE, MEDICAID, SELFPAY ==
--- OUTSIDE RECORDS SUMMARY | 2025-04-25 14:50 | XMS_ITS ---
Author Organization Unknown Patient Care team information Name Category Status Period Participants - - Proposed period not known - Insurance Providers Payer name Policy type / Covera ge type Policy ID Covered green party ID Policy [place] [employer] [place] [employer]
--- NOTE | 2025-04-25 15:15 | CA_ITS ---
FINAL REPORT CLINICAL HISTORY: edema COMPARISON: None FINDINGS: DUPLEX VENOUS SONOGRAPHY OF THE BILATERAL LOWER EXTREMITIES Multiple transverse and longitudinal scans were performed of the femoropopliteal deep venous systems, with augmentation and compression maneuvers. HISTORY: Pain, edema FINDINGS: Normal phasic flow was noted in the visualized deep venous systems. No intraluminal increased echogenicity is noted to suggest thrombus. There is normal compression and augmentation of the venous structures. No abnormal venous collaterals are seen. IMPRESSION: No evidence of deep venous thrombosis of the bilateral lower extremities. Reviewed, Interpreted and Dictated by Chitra Velasquez MD Transcribed by Luanne Castaneda Authenticated and [facility]
== END 2025-04-25 23:59 | disposition home or self-care (01) ==
LOC: RT 14:48
PROVIDERS: PCP Internal Medicine Adolescent Medicine; Visit Provider Internal Medicine
DX: M79.89 Other specified soft tissue disorders (principal); R23.8 Other skin changes; R60.0 Localized edema
CPT/HCPCS: 93970

== ENCOUNTER 2025-04-26 14:15 | Outpatient (CLI) | payer MEDICARE, MEDICAID, SELFPAY ==
[2025-04-26] MEDS: SODIUM CHLORIDE 0.9% 10ML FLUSH SYRINGE 10 ML IV (14:30)
[2025-04-26 14:39] LABS: Basophils % 0.6 % (0.1-2.0); Eosinophils # 0.2 Kmm3 (0.0-0.4); Eosinophils % 3.1 % (0.1-12.0); Hemoglobin 9.4 g/dL (12.2-16.2); Immature Granulocytes # 0.02 10^3uL; Immature Granulocytes % 0.3 %; Lymphocytes # 0.3 K/mm3 (0.7-4.5); Lymphocytes % 3.5 % (10-50); Mean Corpuscular HGB Conc 30.3 g/dL (31.8-35.4); Mean Corpuscular Hemoglobin 27.5 pg (27.0-31.2); Mean Corpuscular Volume 90.6 fl (81-99); Mean Platelet Volume 9.5 fl (7.4-10.4); Monocytes # 0.8 K/mm3 (0.1-1.0); Monocytes % 10.6 % (1.7-9.3); Neutrophils # 5.9 K/mm3 (1.8-7.8); Neutrophils % 81.9 % (37.0-80.0); Nucleated Red Blood Cells # 0 10^3/uL; Nucleated Red Blood Cells % 0 %; Platelet Count 244 K/mm3 (142-424); Red Blood Count 3.42 M/mm3 (4.20-5.40); Red Cell Distribution Width 18.4 % (11.5-17.5); Red Cell Distribution Width-SD 60.8 fL; White Blood Count 7.2 K/mm3 (4.8-10.8)
[2025-04-26 14:50] LABS: INR 2.14 (0.9-1.1); Prothrombin Time 22.5 seconds (10.1-12.5)
[2025-04-26 14:52] LABS: Alanine Aminotransferase 19 U/L (12-78); Albumin Level 4.4 g/dl (3.5-5.0); Albumin/Globulin Ratio 1.3 (1.1-1.8); Alkaline Phosphatase 105 U/L (38-126); Anion Gap 13.6 mEq/L (5-15); Aspartate Amino Transferase 31 U/L (14-36); Bilirubin,Total 1.3 mg/dl (0.2-1.3); Blood Urea Nitrogen 62 mg/dl (7-17); Carbon Dioxide 34 mmol/L (22.0-30.0); Chloride 95 mmol/L (98-107); Estimated Glomerular Filt Rate 27 ml/min (>60); GFR (African American) 32 ML/MIN (>60); Globulin 3.4 g/dL (1.3-3.2); Glucose 92 mg/dl (74-100); Potassium 3.6 mmoL/L (3.5-5.1); Sodium 139 mmol/L (136-145); Total Protein,Serum 7.8 g/dl (6.3-8.2)
[2025-04-26 15:05] LABS: MANUAL DIFFERENTIAL MANUAL DIFFERENTIAL (MANUAL DIFF)
[2025-04-26 15:32] LABS: Eosinophils % 2 % (0-3); Lymphocytes % 3 % (10-50); Monocytes % 7 % (2-9); Neutrophils % 88 % (42-76); Total Cells Counted 100
[2025-04-26 15:34] LABS: Hypochromasia 2+
[2025-04-26 15:40] LABS: Ovalocytes 1+; Stomatocytes 1+
[2025-04-26 15:42] LABS: Platelet Estimate Normal
== END 2025-04-26 14:30 | disposition home or self-care (01) ==
LOC: INF 14:22
PROVIDERS: Internal Medicine Adolescent Medicine; Visit Provider Internal Medicine Medical Oncology
DX: D50.9 Iron deficiency anemia, unspecified (principal)
CPT/HCPCS: 36591; 80053; 85007; 85025; 85027; 85610; J1642

== ENCOUNTER 2025-05-03 08:45 | Outpatient (CLI) | payer MEDICARE, MEDICAID, SELFPAY ==
--- OUTSIDE RECORDS SUMMARY | 2025-05-03 08:49 | XMS_ITS | Encounter Summary ---
Author Organization [employer] Address [address] [place] [address] Care Team Providers Care Control Panel Builder Name Role Phone Reji Castro MD Primary Care Provider [phone] Encounter Details Date Type Department Care Team (Late st Contact Info) Description 08/11/2021 Transcribed Document [facility] [place] [facility] [place] [address] ProviderDelvin MD [address] [place] [address] [id number] Social History Tobacco Use Types Packs/Day Years Used Date Smoking Tobacco: Never Assessed Comments Unknown Sex and Gender Information Value Date Recorded Sex Assigned at Not on file Legal Sex Female 4:32 PM CDT Gender Identity Not on file Sexual Orientation Not on file documented as of this encounter Miscellaneous Notes * Cerner Conversion Note - Historical ProviderMD - 08/11/2021 7:58 PM CDT CR Chest 1 Vw Portable Ordered: 08/11/2021 Modified Reason for Exam: Cough 08/11/2021 18:40 08/11/2021 19:58 (LOUANN MILLER PA-C) Reviewed by Provider, No further action required X1 Electronically signed by Lanny Cox [place] Conversion Criminal Investigative Agent Cerner at 03/09/2023 8:45 PM CDT documented in this encounter Plan of Treatment Not on file documented as of this encounter Visit Diagnoses Not on filedocumented in this encounter Care Teams Control Panel Builder Relationship Specialty Start Date End Date Reji Castro MD [address] [place] [id number] PCP - General Adolescent Medicine 11/11/22 documented as of this encounter
--- OUTSIDE RECORDS SUMMARY | 2025-05-03 08:49 | XMS_ITS | Encounter Summary ---
Author Organization [employer] Address [address] [place] [address] Care Team Providers Care Data Management Consultant Name Role Phone Reji Castro MD Primary Care Provider + [phone] Encounter Details Date Type Department Care Team (Late st Contact Info) Description 08/11/2021 Transcribed Document [facility] [address] [place], [place] [id number] ProviderDelvin MD [address] [place] [id number] Social History Tobacco Use Types Packs/Day Years Used Date Smoking Tobacco: Never Assessed Comments Unknown Sex and Gender Information Value Date Recorded Sex Assigned at Not on file Legal Sex Female 4:32 PM CDT Gender Identity Not on file Sexual Orientation Not on file documented as of this encounter Miscellaneous Notes * Cerner Conversion Note - Delvin ProviderMD - 08/11/2021 9:21 PM CDT Admission History, Adult Entered On: 08/11/2021 23:22 EDT Performed On: 08/11/2021 21:21 EDT by Cherri Webb V RN Advance Directive Patient has Advance Directive *Q : No, patient refuses Advance Directive information Cherri Webb RN - 08/11/2021 23:11 EDT Anesthesia/Transfusion History Family History of Anesthesia Reaction : Prior transfusion reaction Type of Transfusion Reaction : Hives, Other: Itching Severe, Back Pain, Headaches Blood Transfusion Acceptable to Patient : Yes Transfusion History Comment : Benadryl and Tylenol before Transfusions Transfusion History : Prior anesthesia without reaction Family History of Anesthesia Reaction : None Cherri Webb RN - 08/11/2021 23:11 EDT Functional Assessment Living Situation : Home Patient Lives With : Alone Persons Assisting Patient at Home : Child/Children, Significant other(s) Current Daily Living Assistance : Transportation Sensory Deficits : None Mobility Assistance Prior to Admission : Independent MURRAY Hx Falls Immediate/Within 3 Months : No Current Home Treatments : Blood glucose monitoring, CPAP Home Equipment : Shower Equipment, Other: Bathtub Rail Cherri Webb V RN - 08/11/2021 23:11 EDT General Info Arrived From : Home Mode of Arrival on Unit : Ambulatory Legal Guardian : Unaccompanied Legal Guardian : No 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 Pt reports her port is infected. Currently on Omnicef. Pt has a mechanical valve. Has had 180 units of blood due to anemia, [facility] is why she has a port. 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 Cherri Webb RN - 08/11/2021 23:11 EDT Fall Risk Scales ABCs Fall Injury Risk Identification : Coagulation ABC Fall Injury Risk : Moderate to high injury risk MURRAY Hx Falls Immediate/Within 3 Months : No Murray Secondary Diagnosis : No MURRAY Use of Ambulatory Aid : None MURRAY IV Therapy or IV Access : Yes Soheila Gait/Transferring : Normal, bedrest, immobile Murray Mental Status : Oriented to own ability Murray Fall Risk Score : 20 MURRAY Fall Scale Risk Level : 0-24 Low Risk [place] Fall Interventions : Adequate lighting, Assistive devices within reach, Bed in low position, Call device within reach, Hourly comfort/safety rounds, Non-slip footwear, Personal items within reach, Room free of clutter/spills, Upper side-rails up, Wheels locked, Wires/Cords secured Cherri Webb RN - 08/11/2021 23:11 EDT Health Histories Smoking Status : Former smoker, quit more than 30 days ago Smokeless Tobacco Status : Never Cherri Webb RN - 08/11/2021 23:11 EDT Social History (As Of: 08/11/2021 23:22:43 EDT) Tobacco: Use in Last 12 Months: No. Smoking Status Former smoker. Years of Use: 30. Last Used: quit 2005. (Last Updated: 12/18/2013 14:52:21 EST by LIBERTY MONZON RN) Height and Weight, Clinical Dosing Height Source : Stated Height Entry Format : [place] Height, Feet : 5 ft(Converted to: 152 cm, 60 Inch) Height, Inches : 4 Inch(Converted to: 0 ft 4 Inch, 10.16 cm) Clinical Height : 162.56 cm Weight Source : Standing scale Weight Entry Format : [place] Clinical Dosing Weight : 86.39 kg Weight, Pounds : 190 lb Weight, Ounces : 1 oz Body Surface Area (BSA) : 1.92 m2 Body Mass Index : 32.7 kg/m2 (HI) [place] Body Weight : 54 kg Cherri Webb RN - 08/11/2021 23:11 EDT Infectious Disease History Does patient have symptoms of COVID-19? : No Has the Patient Been Tested for COVID-19 in the last 14 days? : No, Patient stated Does the Patient state known exposure to a COVID-19 positive case in the last 14 days? : No Patient Vaccinated for COVID-19 : Fully vaccinated Cherri Webb RN - 08/11/2021 23:11 EDT Infectious Disease Risk Screening Grid Cough < 2 wks of unknown origin : NO Cough > 2 weeks : NO Blood in Sputum : NO Fever or self-reported Fever : NO Rash of unknown origin : NO Headache : NO Stiff neck : NO Night Sweats : NO Unexplained Weight Loss : NO Diarrhea (3 episode per day) : NO Cherri Webb RN - 08/11/2021 23:11 EDT Physical contact outside [place] in the last 30 days : No Hospitalized in Foreign Country : No Infectious Disease History : Measles INF Disease TB Screening Calc : 0 INF Disease Recent Travel Calc : 0 Cherri Webb RN - 08/11/2021 23:11 EDT Influenza Vaccine Asmt, Adult Previous Vaccines from Immunization Schedule : No qualifying data available. Influenza Immunization, Current Season : Yes Cherri Webb RN - 08/11/2021 23:11 EDT Pneumococcal Vaccine Previous Vaccines from Immunization Schedule : No qualifying data available. Pneumonia Immunization Received : Yes Cherri Webb RN - 08/11/2021 23:11 EDT Order Details Transport Mode Order Detail : Ambulatory Isolation Precautions Order Detail : Standard Precautions Order Detail : 0 IV Order Detail : 1 Oxygen Order Detail : 0 Nurse Collect Order Detail : 0 Lift/Transfer : Independent Central Line Order Detail : No Room Service : Appropriate Arterial Line : No Patient Needs Meds Crushed/Liquid : No Cherri Webb RN - 08/11/2021 23:11 EDT Nutrition History Feeding Ability : Independent Adaptive Feeding Equipment : None Adaptive Feeding Equipment : Regular Oral Medication Administration : By mouth Eating Poorly Due to Decreased Appetite : Yes Unplanned Weight Loss in Past 3-6 Months : No Malnutrition Screening Tool Total(mal) : 1 Malnutrition Screening Tool Risk Level : Patient not at risk Cherri Webb RN - 08/11/2021 23:11 EDT [place] Suicide Severity Rating Scale (C-SSRS) CSSRS Past Month Wish to be : No CSSRS Past Month Suicidal Thoughts : No CSSRS Lifetime Suicide Behavior : No Suicide Severity Rating Score : 0 Suicide Severity Rating : No Additional Care Required at this time Cherri Webb RN - 08/11/2021 23:11 EDT Psychosocial History Do You Have a History of the Following? : Anxiety, Depression, Post Traumatic Stress Disorder Currently in Unsafe Situation : No Cherri Webb RN - 08/11/2021 23:11 EDT Sleep Apnea Risk Assmt BiPAP/CPAP Ordered for Home Use : Yes Hx of Obstructive Sleep Apnea Diagnosis : Yes BiPAP/CPAP Used at Home : Yes Age over 50 Years Old : Yes Gender Male : No Cherri Webb RN - 08/11/2021 23:11 EDT Valuables and Belongings Valuables and Belongings : Clothing, Jewelry, Personal devices, Personal items, No assistive devices, No respiratory devices, No medications Clothing : Common streetwear Clothing Disposition : Bedside Personal Device Disposition : Bedside Jewelry : Ring Jewelry Disposition : Bedside Personal Devices : Glasses Personal Items : Cell phone, 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
--- OUTSIDE RECORDS SUMMARY | 2025-05-03 08:49 | XMS_ITS | Encounter Summary ---
Author Organization [employer] Address [address] [facility] [place] [address] Care Team Providers Care Tube And Rod Straightener Name Role Phone Reji Castro MD Primary Care Provider [phone] Encounter Details Date Type Department Care Team (Late st Contact Info) Description 08/11/[address] [facility] Family Medicine [address] [place] [address] ProviderDelvin MD [address] [place] [address] Social History Tobacco Use Types Packs/Day Years Used Date Smoking Tobacco: Never Assessed Comments Unknown Sex and Gender Information Value Date Recorded Sex Assigned at Not on file Legal Sex Female 4:32 PM CDT Gender Identity Not on file Sexual Orientation Not on file documented as of this encounter Miscellaneous Notes * Cerner Conversion Note - Delvin ProviderMD - 08/11/2021 4:16 PM CDT ED Triage Entered On: 08/11/2021 16:25 EDT Performed On: 08/11/2021 16:19 EDT by MICHAEL NAM RN ED Triage Across the Room Chief Complaint : Pt presents to the ER reporting she was called for positive blood clutures which showed staph. Pt reports her port is infected. Currently on Omnicef. Pt has a mechanical valve. Has had 180 units of blood due to anemia, ihc is why she has a port. Triage Date/Time : 08/11/2021 16:19 EDT MICHAEL NAM RN - 08/11/2021 16:19 EDT DCP GENERIC CODE Tracking Acuity : 3 - Urgent Tracking Group : [facility] ED MICHAEL NAM RN - 08/11/2021 16:19 EDT Mode of Arrival : Ambulatory Transported to ED by : Walk in To Room Via : Ambulate Accompanied By : Unaccompanied ED Vital Signs : Document Height & Weight : Document ED Allergies : Document ED Reason for Visit : Document Tetanus Immunization : Unknown MICHAEL NAM RN - 08/11/2021 16:19 EDT Infectious Disease History Does patient have symptoms of COVID-19? : No Has the Patient Been Tested for COVID-19 in the last 14 days? : No, Patient stated Does the Patient state known exposure to a COVID-19 positive case in the last 14 days? : No Patient Vaccinated for COVID-19 : Fully vaccinated MICHAEL NAM RN - 08/11/2021 16:19 EDT Infectious Disease Risk Screening Grid Cough < 2 wks of unknown origin : NO Cough > 2 weeks : NO Blood in Sputum : NO Fever or self-reported Fever : NO Rash of unknown origin : NO Headache : NO Stiff neck : NO Night Sweats : NO Unexplained Weight Loss : NO Diarrhea (3 episode per day) : NO MICHAEL NAM RN - 08/11/2021 16:19 EDT Physical contact outside [place] in the last 30 days : No Hospitalized in Foreign Country : No Infectious Disease History : Measles INF Disease TB Screening Calc : 0 INF Disease Recent Travel Calc : 0 MICHAEL NAM RN - 08/11/2021 16:19 EDT Vital Signs ED Temperature Source : Oral Temperature Mode : Fahrenheit Temperature, Fahrenheit : 97.2 Deg F Clinical Temperature, C : 36.2 Deg C Peripheral Pulse Rate : 76 bpm Respiratory Rate : 18 Breaths/Min Systolic Blood Pressure : 112 mmHg Diastolic Blood Pressure : 59 mmHg (LOW) Oxygen Saturation : 98 % MICHAEL NAM RN - 08/11/2021 16:19 EDT Allergy (As Of: 08/11/2021 16:25:12 EDT) Allergies (Active) anabolic steroids Estimated Onset Date: Unspecified ; Reactions: Congestive heart failure ; Created By: CASIMIRO MICHELE RN; Reaction Status: Active ; Category: Drug ; Substance: anabolic steroids ; Type: Allergy ; Updated By: CASIMIRO MICHELE RN; Reviewed Date: 08/11/2021 16:20 EDT buprenorphine Estimated Onset Date: Unspecified ; Created By: CONTRIBUTOR_SYSTEM, HIST_CERNER; Reaction Status: Active ; Category: Drug ; Substance: buprenorphine ; Type: Allergy ; Updated By: YOSELYN HOLGUIN; Reviewed Date: 08/11/2021 16:20 EDT codeine Estimated Onset Date: Unspecified ; Created By: YOSELYN HOLGUIN; Reaction Status: Active ; Category: Drug ; Substance: codeine ; Type: Allergy ; Updated By: YOSELYN HOLGUIN; Reviewed Date: 08/11/2021 16:20 EDT Detrol Estimated Onset Date: Unspecified ; Reactions: Congestive heart failure ; Created By: CASIMIRO MICHELE RN; Reaction Status: Active ; Category: Drug ; Substance: Detrol ; Type: Allergy ; Updated By: CASIMIRO MICHELE RN; Reviewed Date: 08/11/2021 16:20 EDT glipiZIDE Estimated Onset Date: Unspecified ; Reactions: Congestive heart failure ; Created By: CASIMIRO MICHELE RN; Reaction Status: Active ; Category: Drug ; Substance: glipiZIDE ; Type: Allergy ; Updated By: CASIMIRO MICHELE RN; Reviewed Date: 08/11/2021 16:20 EDT metFORMIN Estimated Onset Date: Unspecified ; Reactions: Congestive heart failure ; Created By: CASIMIRO MICHELE RN; Reaction Status: Active ; Category: Drug ; Substance: metFORMIN ; Type: Allergy ; Updated By: CASIMIRO MICHELE RN; Reviewed Date: 08/11/2021 16:20 EDT penicillins Estimated Onset Date: Unspecified ; Created By: YOSELYN HOLGUIN; Reaction Status: Active ; Category: Drug ; Substance: penicillins ; Type: Allergy ; Updated By: YOSELYN HOLGUIN; Reviewed Date: 08/11/2021 16:20 EDT propafenone Estimated Onset Date: Unspecified ; Created By: YOSELYN HOLGUIN; Reaction Status: Active ; Category: Drug ; Substance: propafenone ; Type: Allergy ; Updated By: YOSELYN HOLGUIN; Reviewed Date: 08/11/2021 16:20 EDT theophylline Estimated Onset Date: Unspecified ; Created By: YOSELYN HOLGUIN; Reaction Status: Active ; Category: Drug ; Substance: theophylline ; Type: Allergy ; Updated By: YOSELYN HOLGUIN; Reviewed Date: 08/11/2021 16:20 EDT Diagnosis Control ED (As Of: 08/11/2021 16:25:12 EDT) Problems(Active) Amblyopia (SNOMED CT :7384946807 ) Name of Problem: Amblyopia ; Recorder: Whitney Razo RN; Confirmation: Confirmed ; Classification: Patient Stated ; Code: [id number] ; Contributor System: PowerChart ; Last Updated: 05/03/2014 19:25 EDT ; Life Cycle Date: 12/02/2013 ; Life Cycle Status: Active ; Vocabulary: SNOMED CT ; Comments: 12/02/2013 0:50 - Whitney Razo RN lazy eye blindness (left eye) Arthritis (SNOMED CT :2850747 ) Name of Problem: Arthritis ; Recorder: Whitney Razo RN; Confirmation: Confirmed ; Classification: Patient Stated ; Code: [id number] ; Contributor System: PowerChart ; Last Updated: 05/03/2014 19:25 EDT ; Life Cycle Date: 12/02/2013 ; Life Cycle Status: Active ; Vocabulary: SNOMED CT Atrial fibrillation (SNOMED CT :43779087 ) Name of Problem: Atrial fibrillation ; Recorder: Whitney Razo RN; Confirmation: Confirmed ; Classification: Patient Stated ; Code: [id number] ; Contributor System: PowerChart ; Last Updated: 05/03/2014 19:25 EDT ; Life Cycle Date: 12/02/2013 ; Life Cycle Status: Active ; Vocabulary: SNOMED CT Back pain (PNED :[id number] ) Name of Problem: Back pain ; Recorder: Whitney Razo RN; Confirmation: Confirmed ; Classification: Patient Stated ; Code: [id number] ; Contributor System: PowerChart ; Last Updated: 05/07/2014 9:11 EDT ; Life Cycle Date: 12/02/2013 ; Life Cycle Status: Active ; Vocabulary: PNED Bowel obstruction (SNOMED CT :804808961 ) Name of Problem: Bowel obstruction ; Recorder: Whitney Razo RN; Confirmation: Confirmed ; Classification: Patient Stated ; Code: 120074788 ; Contributor System: PowerChart ; Last Updated: 05/03/2014 19:25 EDT ; Life Cycle Date: 12/02/2013 ; Life Cycle Status: Active ; Vocabulary: SNOMED CT Bronchitis (SNOMED CT :53695304 ) Name of Problem: Bronchitis ; Recorder: Whitney Razo RN; Confirmation: Confirmed ; Classification: Patient Stated ; Code: 26313930 ; Contributor System: PowerChart ; Last Updated: 05/03/2014 19:25 EDT ; Life Cycle Date: 12/02/2013 ; Life Cycle Status: Active ; Vocabulary: SNOMED CT Cardiac arrhythmia (SNOMED CT :1427444714 ) Name of Problem: Cardiac arrhythmia ; Recorder: Whitney Razo RN; Confirmation: Confirmed ; Classification: Patient Stated ; Code: [id number] ; Contributor System: PowerChart ; Last Updated: 05/03/2014 19:25 EDT ; Life Cycle Date: 12/02/2013 ; Life Cycle Status: Active ; Vocabulary: SNOMED CT Cardiomyopathy (SNOMED CT :655369427 ) Name of Problem: Cardiomyopathy ; Recorder: Whitney Razo RN; Confirmation: Confirmed ; Classification: Patient Stated ; Code: [id number] ; Contributor System: PowerChart ; Last Updated: 05/03/2014 19:25 EDT ; Life Cycle Date: 12/02/2013 ; Life Cycle Status: Active ; Vocabulary: SNOMED CT COPD (SNOMED CT :62394633 ) Name of Problem: COPD ; Recorder: Whitney Razo RN; Confirmation: Confirmed ; Classification: Patient Stated ; Code: 63238892 ; Contributor System: PowerChart ; Last Updated: 05/07/2014 9:10 EDT ; Life Cycle Date: 12/02/2013 ; Life Cycle Status: Active ; Vocabulary: SNOMED CT Diabetes mellitus (SNOMED CT :601227627 ) Name of Problem: Diabetes mellitus ; Recorder: Whitney Razo RN; Confirmation: Confirmed ; Classification: Patient Stated ; Code: 480227398 ; Contributor System: PowerChart ; Last Updated: 05/03/2014 19:25 EDT ; Life Cycle Date: 12/02/2013 ; Life Cycle Status: Active ; Vocabulary: SNOMED CT Diabetes mellitus type II (SNOMED CT :02385746 ) Name of Problem: Diabetes mellitus type II ; Recorder: Whitney Razo RN; Confirmation: Confirmed ; Classification: Patient Stated ; Code: 39566967 ; Contributor System: PowerChart ; Last Updated: 05/07/2014 9:12 EDT ; Life Cycle Date: 12/02/2013 ; Life Cycle Status: Active ; Vocabulary: SNOMED CT Diverticulosis (SNOMED CT :1164424983 ) Name of Problem: Diverticulosis ; Recorder: Whitney Razo RN; Confirmation: Confirmed ; Classification: Patient Stated ; Code: 4318678501 ; Contributor System: PowerChart ; Last Updated: 05/03/2014 19:25 EDT ; Life Cycle Date: 12/02/2013 ; Life Cycle Status: Active ; Vocabulary: SNOMED CT Edema (SNOMED CT :443372255 ) Name of Problem: Edema ; Recorder: Whitney Razo RN; Confirmation: Confirmed ; Classification: Patient Stated ; Code: 970383553 ; Contributor System: PowerChart ; Last Updated: 05/03/2014 19:25 EDT ; Life Cycle Date: 12/02/2013 ; Life Cycle Status: Active ; Vocabulary: SNOMED CT ; Comments: 12/02/2013 1:45 - Whitney Razo RN BLE Fibromyalgia (SNOMED CT :73953875 ) Name of Problem: Fibromyalgia ; Recorder: Whitney Razo RN; Confirmation: Confirmed ; Classification: Patient Stated ; Code: 37357087 ; Contributor System: PowerChart ; Last Updated: 05/03/2014 19:25 EDT ; Life Cycle Date: 12/02/2013 ; Life Cycle Status: Active ; Vocabulary: SNOMED CT frequent headache ( : ) Name of Problem: frequent headache ; Recorder: CASIMIRO MICHELE RN; Confirmation: Confirmed ; Classification: Patient Stated ; Contributor System: PowerChart ; Last Updated: 12/15/2013 15:43 EST ; Life Cycle Date: 12/15/2013 ; Life Cycle Status: Active GERD - Gastro-esophageal reflux disease (SNOMED CT :4629762899 ) Name of Problem: GERD - Gastro-esophageal reflux disease ; Recorder: Whitney Razo RN; Confirmation: Confirmed ; Classification: Patient Stated ; Code: 6203098795 ; Contributor System: PowerChart ; Last Updated: 05/07/2014 9:09 EDT ; Life Cycle Date: 12/02/2013 ; Life Cycle Status: Active ; Vocabulary: SNOMED CT Heart failure (SNOMED CT :464140656 ) Name of Problem: Heart failure ; Recorder: Whitney Razo RN; Confirmation: Confirmed ; Classification: Patient Stated ; Code: 872138609 ; Contributor System: PowerChart ; Last Updated: 05/03/2014 19:25 EDT ; Life Cycle Date: 12/02/2013 ; Life Cycle Status: Active ; Vocabulary: SNOMED CT Heart valve (SNOMED CT :753607201 ) Name of Problem: Heart valve ; Recorder: Whitney Razo RN; Confirmation: Confirmed ; Classification: Patient Stated ; Code: 425504964 ; Contributor System: PowerChart ; Last Updated: 05/07/2014 9:14 EDT ; Life Cycle Date: 12/02/2013 ; Life Cycle Status: Active ; Vocabulary: SNOMED CT Hepatomegaly (SNOMED CT :447114186 ) Name of Problem: Hepatomegaly ; Recorder: Whitney Razo RN; Confirmation: Confirmed ; Classification: Patient Stated ; Code: 403802003 ; Contributor System: PowerChart ; Last Updated: 05/03/2014 19:25 EDT ; Life Cycle Date: 12/02/2013 ; Life Cycle Status: Active ; Vocabulary: SNOMED CT High blood pressure (SNOMED CT :87891039 ) Name of Problem: High blood pressure ; Recorder: Whitney Razo RN; Confirmation: Confirmed ; Classification: Patient Stated ; Code: 47923844 ; Contributor System: PowerChart ; Last Updated: 05/03/2014 19:25 EDT ; Life Cycle Date: 12/02/2013 ; Life Cycle Status: Active ; Vocabulary: SNOMED CT Hyperlipidemia (SNOMED CT :97721793 ) Name of Problem: Hyperlipidemia ; Recorder: Whitney Razo RN; Confirmation: Confirmed ; Classification: Patient Stated ; Code: 07078208 ; Contributor System: PowerChart ; Last Updated: 05/03/2014 19:25 EDT ; Life Cycle Date: 12/02/2013 ; Life Cycle Status: Active ; Vocabulary: SNOMED CT Lazy eye (SNOMED CT :868110871 ) Name of Problem: Lazy eye ; Recorder: Whitney Razo RN; Confirmation: Confirmed ; Classification: Patient Stated ; Code: 688365494 ; Contributor System: PowerChart ; Last Updated: 05/03/2014 19:25 EDT ; Life Cycle Date: 12/02/2013 ; Life Cycle Status: Active ; Vocabulary: SNOMED CT ; Comments: 12/02/2013 0:49 - Whitney Razo RN lazy eye blindness (left eye) Myocardial infarction (SNOMED CT :58792906 ) Name of Problem: Myocardial infarction ; Recorder: Whitney Razo RN; Confirmation: Confirmed ; Classification: Patient Stated ; Code: 57577646 ; Contributor System: PowerChart ; Last Updated: 05/03/2014 19:25 EDT ; Life Cycle Date: 12/02/2013 ; Life Cycle Status: Active ; Vocabulary: SNOMED CT neuropathy hands and feet ( : ) Name of Problem: neuropathy hands and feet ; Recorder: CASIMIRO MICHELE RN; Confirmation: Confirmed ; Classification: Patient Stated ; Contributor System: PowerChart ; Last Updated: 12/15/2013 15:42 EST ; Life Cycle Date: 12/15/2013 ; Life Cycle Status: Active Ovarian cyst (SNOMED CT :064470917 ) Name of Problem: Ovarian cyst ; Recorder: Whitney Razo RN; Confirmation: Confirmed ; Classification: Patient Stated ; Code: 415598142 ; Contributor System: PowerChart ; Last Updated: 05/03/2014 19:25 EDT ; Life Cycle Date: 12/02/2013 ; Life Cycle Status: Active ; Vocabulary: SNOMED CT Renal calculus (SNOMED CT :777582326 ) Name of Problem: Renal calculus ; Recorder: Whitney Razo RN; Confirmation: Confirmed ; Classification: Patient Stated ; Code: 889050967 ; Contributor System: PowerChart ; Last Updated: 05/03/2014 19:25 EDT ; Life Cycle Date: 12/02/2013 ; Life Cycle Status: Active ; Vocabulary: SNOMED CT Restless legs syndrome (SNOMED CT :03655537 ) Name of Problem: Restless legs syndrome ; Recorder: Whitney Razo RN; Confirmation: Confirmed ; Classification: Patient Stated ; Code: 89524127 ; Contributor System: PowerChart ; Last Updated: 05/03/2014 19:25 EDT ; Life Cycle Date: 12/02/2013 ; Life Cycle Status: Active ; Vocabulary: SNOMED CT Thyroid disease (SNOMED CT :096016779 ) Name of Problem: Thyroid disease ; Recorder: Whitney Razo RN; Confirmation: Confirmed ; Classification: Patient Stated ; Code: 506594765 ; Contributor System: PowerChart ; Last Updated: 05/03/2014 19:25 EDT ; Life Cycle Date: 12/02/2013 ; Life Cycle Status: Active ; Vocabulary: SNOMED CT Diagnoses(Active) Medical screening exam Date: 08/11/2021 ; Diagnosis Type: Reason For Visit ; Confirmation: Complaint of ; Clinical Dx: Medical screening exam ; Classification: Medical ; Clinical Service: Emergency medicine ; Code: PNED ; Probability: 0 ; Diagnosis Code: [id number] ED Height and Weight Height Source : Stated Height Entry Format : [place] Height, Feet : 5 ft(Converted to: 152 cm, 60 Inch) Height, Inches : 4 Inch(Converted to: 0 ft 4 Inch, 10.16 cm) Clinical Height : 162.56 cm Weight Source, ED : Critical estimated dosing weight Weight Entry Format : [place] Weight, Pounds : 190 lb Clinical Dosing Weight : 86.36 kg Body Surface Area (BSA) : 1.92 m2 Body Mass Index : 32.7 kg/m2 (HI) [place] Body Weight (IBW) : 54.3 kg MICHAEL NAM RN - 08/11/2021 16:19 EDT Electronically signed by Lanny [facility] Conversion Procedures Rn Cerner at 03/09/2023 8:56 PM CDT documented in this encounter Plan of Treatment Not on file documented as of this encounter Visit Diagnoses Not on filedocumented in this encounter Care Teams Tube And Rod Straightener Relationship Specialty Start Date End Date Reji Castro MD [address] [place] [id number] PCP - General Adolescent Medicine 10/02/22 documented as of this encounter
--- OUTSIDE RECORDS SUMMARY | 2025-05-03 08:49 | XMS_ITS | Encounter Summary ---
Author Organization [employer] Address [address] [place] [address] Care Team Providers Care Yoghurt Maker Name Role Phone Reji Castro MD Primary Care Provider [phone] Encounter Details Date Type Department Care Team (Late st Contact Info) Description 08/15/2021 Transcribed Document [facility] Family Medicine [facility] [place] [address] ProviderDelvin MD [address] [place] [id number] Social History Tobacco Use Types Packs/Day Years Used Date Smoking Tobacco: Never Assessed Comments Unknown Sex and Gender Information Value Date Recorded Sex Assigned at Not on file Legal Sex Female 4:32 PM CDT Gender Identity Not on file Sexual Orientation Not on file documented as of this encounter Miscellaneous Notes * Cerner Conversion Note - Delvin Celestin MD - 08/15/2021 10:34 AM CDT On Going Discharge Planning Entered On: 08/18/2021 10:38 EDT Performed On: 08/15/2021 10:34 EDT by JULIO STEWART, RN-Conveyor Belt Operator ED Care Management Progress Note Discharge Arrangements : Patient Post-Acute Information Patient Name: IRINA TAMAYO Gender: Female : 61 Age: 56 Years No Post-Acute Placement(s) Listed No Post-Acute Service(s) Listed No [place] Referral(s) Listed Discharge Options Discussed with Patient : DME, Home Health, Short term rehabilitation Barriers to Discharge Identified : Clinical Condition of Patient Barriers to Discharge Unresolved : Clinical Condition of Patient JULIO STEWART, RN-Conveyor Belt Operator ED - 08/18/2021 10:34 EDT Narrative Progress Note Narrative Progress Note : (late entry from 08/15-) HD 3. ELOS 5. High RAR. DX: MSSA bacteremia, sepsis Discussed pt during MDR with care team with Dr. Cuevas pn 08/15. Pt's port was removed on 08/14 and plan to have new port placed on 08/19 (). Hep gtt cont-> will remain admitted until INR therapeutic. BS RN reports pt is up and moving independently. ID following-> if cx tip negative then [place] 2gm daily until 09/08, but if cx tip + abx therapy will be needed until 09/22. nephro following. -DCP will likely home with outpt abx vs home infusion via port. PT will need HH to follow for labs and port-a-cath care. CM will follow and send referrals as appropriate. JULIO STEWART, RN-Conveyor Belt Operator ED - 08/18/2021 10:34 EDT Electronically signed by Lanny [facility] Conversion Livestock Auctioneer Cerner at 03/09/2023 8:33 PM CDT documented in this encounter Plan of Treatment Not on file documented as of this encounter Visit Diagnoses Not on filedocumented in this encounter Care Teams Yoghurt Maker Relationship Specialty Start Date End Date Reji Castro MD [address] [place] [id number] PCP - General Adolescent Medicine 10/02/22 documented as of this encounter
--- OUTSIDE RECORDS SUMMARY | 2025-05-03 08:49 | XMS_ITS | Encounter Summary ---
Author Organization [employer] Address [address] [place] [address] Care Team Providers Care Cash On Delivery Clerk Name Role Phone Reji Castro MD Primary Care Provider + [phone] Encounter Details Date Type Department Care Team (Late st Contact Info) Description 08/15/2021 Transcribed Document [facility] [place] Family Medicine [facility] [place] [address] ProviderDelvin MD [address] [place] [id number] Social History Tobacco Use Types Packs/Day Years Used Date Smoking Tobacco: Never Assessed Comments Unknown Sex and Gender Information Value Date Recorded Sex Assigned at Not on file Legal Sex Female 4:32 PM CDT Gender Identity Not on file Sexual Orientation Not on file documented as of this encounter Miscellaneous Notes * Cerner Conversion Note - Delvin Celestin MD - 08/15/2021 2:54 PM CDT Patient: IRINA TAMAYO Age: 56 years Sex: Female : 1965 Associated Diagnoses: None Author: SIERRA MONTGOMERY MD-NEP Basic Information Admit information: 56 year old female with NICM with EF 35-40% , CHF, rheumatic valve disease s/p mechanical mitral valve replacement (2005), chronic atrial fibrillation, DMII, CKD, COPD and autoimmune hemolytic anemia for which she has had 180 units PRBCs. She had a Port-A-Cath placed ~ 3 years ago for transfusions. She is admitted after found out to have positive blood cx. Nephrology has been consulted for evaluation of TRISTAN on CKD stage III.She has hx of obstructive uropathy with left hydronephrosis in 2013 requiring ureteral stent. Per the patient her baseline cr has been around 1.6mg/dl. She Mariann any hx of proteinuria.; Cr on this admission was 2.4-2.5mg/dl. She had interval improvement in renal function cr 1.6mg/dl. . Review of Systems Constitutional: No fever, No chills. Respiratory: No shortness of breath, No hemoptysis. Gastrointestinal: Nausea, Constipation, No vomiting, No diarrhea. Genitourinary: No dysuria, No hematuria. Neurologic: Alert and oriented X4. Health Status Allergies.Current medications: Medications by Classification Antimicrobials ceFAZolin - 1 Gram, IV Piggyback, Inj, Q8HInt, infuse over 30 Minute(s), Routine DAPTOmycin + Sodium Chloride 0.9% intravenous solution 50 mL - 700 mg, IV Piggyback, Inj, H22TViv, infuse over 30 Minute(s), Routine Cardiovascular metoprolol (Toprol-XL) - 25 mg, Oral, XL Tab, QPM, Routine labetalol - 10 mg, IV Push, Inj, Q4H, PRN for Hypertension, Routine Respiratory albuterol (albuterol 2.5 mg/3 mL (0.083%) inhalation solutio - 3 mL, Nebulized Inhalation, Inh, RT_Q4H, PRN for Shortness of Breath, Routine promethazine (Phenergan) - 12.5 mg, IV Push, Inj, Q6H, PRN for Nausea, Routine GI ondansetron - 4 mg, IV Push, Inj, Q4H, PRN for Nausea, Routine pantoprazole - 40 mg, Oral, EC Tab, Daily, Routine famotidine - 20 mg, Oral, Tab, At Bedtime, Routine docusate-senna (docusate-senna 50 mg-8.6 mg oral tablet) - 1 Tab, Oral, Tab, BID, Routine lactobacillus acidophilus - 1 Cap, Oral, Cap, Daily Endocrine insulin lispro (insulin lispro sliding scale) - Scale C:, SubCutaneous, Inj, AC and at Bedtime, Routine glucose (Dextrose 50% injection) - 25 Gram, IV Push, Inj, Q15Min, PRN for Other (See Comment), Routine glucose (Dextrose 50% injection) - 25 Gram, IV Push, Inj, Q15Min, PRN for Other (See Comment), Routine glucose (Dextrose 50% injection) - 25 Gram, IV Push, Inj, Q15Min, PRN for Other (See Comment), Routine glucose (Dextrose 50% injection) - 12.5 Gram, IV Push, Inj, Q15Min, PRN for Other (See Comment), Routine glucose (glucose 4 g oral tablet, chewable) - 16 Gram, 4 Tab, Chew, Tab, Q15Min, PRN for Other (See Comment), Routine glucose (glucose 40% oral gel) - 15 Gram 37.5 mL, Oral, Gel, Q15Min, PRN for Other (See Comment), Routine levothyroxine - 25 mcg, Oral, Tab, Daily, Routine Psych citalopram (CeleXA) - 40 mg, Oral, Tab, Daily, Routine HEENT ketotifen ophthalmic - 1 Drop, Eyes Both, Drops, BID Pain Meds fentaNYL - 25 mcg, IV Push, Inj, Q4H, PRN for Pain (Severe 7-10), Routine acetaminophen-hydrocodone ([place] 10 mg-325 mg oral tablet) - 1 Tab, Oral, Tab, Q6H, PRN for Pain (Moderate 4-6), Routine aspirin - 81 mg, Oral, Tab, Daily acetaminophen - 650 mg, Oral, Tab, Q6H, PRN for Pain (Mild 1-3), Routine Sedatives ALPRAZolam - 0.5 mg, Oral, Tab, TID, PRN for Anxiety, Routine Vitamins ferrous gluconate - 324 mg, Oral, Tab, Daily folic acid - 1 mg, Oral, Tab, Daily, Routine Undefined Medications glucagon - 1 mg, IntraMuscular, Inj, Q15Min, PRN for Other (See Comment), Routine heparin 25,000 Units + NaCl 0.45% Premix Diluent 250 mL (hep - 250 mL, Bag Volume (mL) = 250, IntraVENous hydrALAZINE - 10 mg, IV Push, Inj, Q4H, PRN for Hypertension, Routine Problem list: Active Problems (25) AIHA (autoimmune hemolytic anemia) Amblyopia Arthritis Atrial fibrillation Back pain Bioprosthetic mitral valve replacement Cardiomyopathy with CHF Chronic kidney disease COPD - Chronic obstructive pulmonary disease Diabetes mellitus type II Diverticulosis Edema Fibromyalgia frequent headache GERD - Gastro-esophageal reflux disease Hepatomegaly History of obstructive sleep apnea HLD - Hyperlipidemia HTN - Hypertension Myocardial infarction neuropathy hands and feet Ovarian cyst Renal calculus Restless legs syndrome Thyroid disease Physical Examination Intake and Output Intake & Output Totals Last 24 Hours (7a-7a) Intake (7 Events) Medications (214 mL) Oral Intake (120 mL) Output (3 Events) Urine Voided (Volume) (2100 mL) Input Total: 334 mL Output Total: 2100 mL Balance: -1766 mL , Weight (Daily) No Qualifying Routine Weight Events VS/Measurements Vitals Signs (last 24 hrs) Last Charted Minimum Maximum Temp 97.8 (AUG 15 09:37) 97.8 (AUG 15 09:37) 98.1 (AUG 15 06:00) Apical HR 82 (AUG 14 20:41) 82 (AUG 14 20:41) 82 (AUG 14 20:41) Mon HR 82 (AUG 15 09:37) 58 (AUG 14 22:00) 91 (AUG 15 06:00) Resp Rate 17 (AUG 15 09:37) 16 (AUG 14 17:21) 18 (AUG 15 06:00) SBP 102 (AUG 15 09:37) 91 ([facility] 06:00) 108 ([facility] 17:21) DBP 61 (AUG 15 09:37) L 54 (AUG 15 06:00) 76 ([facility] 17:21) MAP 81 (AUG 15 09:37) 68 ([facility] 03:00) 86 ([facility] 17:21) SpO2 94 (AUG 15 06:00) L 91 ([facility] 22:00) 97 ([facility] 03:00) General: No acute distress. Eye: Extraocular movements are intact, Normal conjunctiva. HENT: Normocephalic, Oral mucosa is moist. Neck: Supple, No jugular venous distention. Respiratory: Lungs are clear to auscultation, Symmetrical chest wall expansion. Cardiovascular: Normal rate, No murmur, No gallop, No edema. Gastrointestinal: Soft, Non-tender, Non-distended, Normal bowel sounds. Integumentary: Warm, Dry. Neurologic: Alert, Oriented, No focal deficits. Psychiatric: Cooperative, Appropriate mood & affect, Normal judgment. Review / Management Results review: Labs (Last four charted values) WBC 7.1 (AUG 15) 6.7 (SEP 23) 5.5 (SEP 22) 5.5 (SEP 22) HB L 7.9 (SEP 24) L 8.0 (SEP 23) L 8.1 (SEP 22) L 8.5 (SEP 22) HCT L 26.7 (SEP 24) L 27.2 (SEP 23) L 26.9 (SEP 22) L 28.7 (SEP 22) Plt 197 (SEP 24) 210 (SEP 23) 206 (SEP 22) 197 (SEP 22) Na 137 (SEP 24) L 135 (SEP 22) 136 (SEP 22) L 134 (SEP 21) K 4.4 (SEP 24) 4.2 (SEP 22) 4.5 (SEP 22) 3.6 (SEP 21) Cl 104 (SEP 24) 102 (SEP 22) 103 (SEP 22) L 98 (SEP 21) CO2 27 (SEP 24) 29 (SEP 22) 30 (SEP 22) 29 (SEP ) BUN H 28 (JUL 24) H 35 (SEP 22) H 50 (SEP 22) H 69 (SEP 21) Cr H 1.80 (SEP 24) H 1.80 (SEP 22) H 1.60 (SEP 22) H 2.40 (SEP 21) Glu R H 139 (SEP 24) H 114 (SEP 22) 102 (SEP 22) H 134 (SEP 21) Ca 9.4 (SEP 24) 9.1 (SEP 22) 9.1 (SEP 22) 9.6 (SEP 21) Lactic .93 (SEP 21) L .73 (SEP 20) PT H 18.2 (JUL 24) H 17.2 (JUL 23) H 17.0 (JUL 23) H 16.3 (SEP 22) INR H 1.8 (SEP 24) H 1.7 (SEP 23) H 1.6 (SEP 23) H 1.6 (SEP 22) PTT H 39.6 (SEP 20) AST 19 (SEP 24) 18 (SEP 22) 17 (SEP 22) 16 (SEP 21) ALT 17 (SEP 24) 17 (SEP 22) 19 (SEP 22) 23 (SEP 21) ALK P 101 (SEP 24) 102 (SEP 22) 102 (SEP 22) 110 (SEP 21) T Bili 0.4 (SEP 24) 0.4 (SEP 22) 0.5 (SEP 22) 0.6 (SEP 21) PTN 7.0 (AUG 15) 7.3 (AUG 13) 6.9 (AUG 13) 7.6 (AUG 12) ALB 3.5 (AUG 15) 3.8 (AUG 13) 3.9 (AUG 13) 3.9 (AUG 12) Lipase 224 (AUG 13) Troponin <0.015 (AUG 12) <0.015 (AUG 11) <0.015 (AUG 11) . AUG 15 03:42 137 104 H 28 / H 139 4.4 27 H 1.80 \ AUG 15 03:42 \ L 7.9 / 7.1 197 / L 26.7 \ Impression and Plan Dx and Plan TRISTAN in the setting of hemodynamic variation and sepsis.#TRISTAN on kidney disease stage III. Creatinine close to baseline at this time. Ureteral stent placement in 2013 and later removed. #MSSA bacteremia #Sepsis #Hx of left ureteral stent placement and left hydronephrosis in 2013 #Afib #HTN #Autoimmune hemolytic anemia #Transfusion dependent anemia recommendations: TRISTAN on CKD stage III. Baseline cr 1.6mg/dl. Cr on this admit 2.4-2.5mg/dl. Renal function improved. Check CK level on daptomycin weekly. Monitor GFR adjust medications. Encourage oral hydration. documented in this encounter Plan of Treatment Not on file documented as of this encounter Visit Diagnoses Not on filedocumented in this encounter Care Teams Cash On Delivery Clerk Relationship Specialty Start Date End Date Reji Castro MD [address] [place] [id number] PCP - General Adolescent Medicine 10/02/22 documented as of this encounter
--- OUTSIDE RECORDS SUMMARY | 2025-05-03 08:49 | XMS_ITS | Encounter Summary ---
Author Organization [employer] Address [address] [place] [address] Care Team Providers Care Sliver Lapper Name Role Phone Reji Castro MD Primary Care Provider [phone] Encounter Details Date Type Department Care Team (Late st Contact Info) Description 08/11/2021 Transcribed Document [facility] [place] [facility] [place] [address] ProviderDelvin MD [facility] [place] [address] Social History Tobacco Use Types Packs/Day Years Used Date Smoking Tobacco: Never Assessed Comments Unknown Sex and Gender Information Value Date Recorded Sex Assigned at Not on file Legal Sex Female 4:32 PM CDT Gender Identity Not on file Sexual Orientation Not on file documented as of this encounter Miscellaneous Notes * Cerner Conversion Note - Delvin Celestin MD - 08/11/2021 8:31 PM CDT Patient: IRINA TAMAYO Age: 56 years Sex: Female : 1965 Associated Diagnoses: None Author: Noy Garrett, Resident Pharmacist S/O: 56 YOF with history of mechanical valve and port in left chest resulting positive blood cultures at check up. Pharmacy consulted to dose vanc for indwelling catheter infection and warfarin for afib, Weight: 86 kg Est CrCl: 21 mL/min Consulting Physician: Fiona ID: -- Indication: cath infection Goal Trough: 12-18 mcg/mL Current abx: 1. Vanc PTD Goal INR: 2-3 Indication: afib Home dose: 6 mg PO at bedtime 08/11 INR 1.8 Vitals Signs (last 24 hrs) Last Charted Minimum Maximum Temp 97.2 (AUG 11 16:19) 97.2 (AUG 11 16:19) 97.2 (AUG 11 16:19) Mon HR 72 (AUG 11 18:55) 72 (AUG 11 18:55) 72 (AUG 11 18:55) Periph HR 76 (AUG 11 16:19) 76 (AUG 11 16:19) 76 (AUG 11 16:19) Resp Rate 18 (AUG 11 16:19) 18 (AUG 11 16:19) 18 (AUG 11 16:19) SBP 104 (AUG 11 18:55) 104 (AUG 11 18:55) 112 (AUG 11 16:19) DBP L 56 (AUG 11 18:55) L 56 (AUG 11 18:55) L 59 (AUG 11 16:19) MAP 74 (AUG 11 18:55) 74 (AUG 11 18:55) 74 (AUG 11 18:55) SpO2 95 (AUG 11 18:55) 95 (AUG 11 18:55) 98 (AUG 11 16:19) Labs (Last four charted values) WBC 6.8 (AUG 11) HB L 9.5 (AUG 11) HCT L 31.3 (AUG 11) Plt 223 (AUG 11) Na L 131 (AUG 11) K 4.1 (AUG 11) Cl L 96 (AUG 11) CO2 26 (AUG 11) BUN H 70 (AUG 11) Cr H 2.50 (AUG 11) Glu R 87 (AUG 11) Ca 10.0 (AUG 11) Lactic L .73 (AUG 11) PT H 18.9 (AUG 11) INR H 1.8 (AUG 11) PTT H 39.6 (AUG 11) AST 18 (AUG 11) ALT 25 (AUG 11) ALK P 128 (AUG 11) T Bili 0.7 (AUG 11) PTN H 8.7 (AUG 11) ALB 4.4 (AUG 11) Troponin <0.015 (AUG 11) Cx Repeat cultures pending Vanc trough levels: A/P 1. Will give patient a loading dose of 1250 mg IV Vanc x1 now. Given renal function, will pulse dose. 2. Draw random level in am then re-evaluate dosing. 3. Plan to give warfarin 6 mg at bedtime consistent with home dose. INR today is 1.8 with a goal of 2-3. 4. Please reach out with any questions. Thank you, Noy Garrett, PharmD PGY-1 Resident Pager #[phone] documented in this encounter Plan of Treatment Not on file documented as of this encounter Visit Diagnoses Not on filedocumented in this encounter Care Teams Sliver Lapper Relationship Specialty Start Date End Date Reji Castro MD [address] [place] [id number] PCP - General Adolescent Medicine 10/02/22 documented as of this encounter
--- OUTSIDE RECORDS SUMMARY | 2025-05-03 08:49 | XMS_ITS | Encounter Summary ---
Author Organization [employer] Address [address] [place] [address] Care Team Providers Care Viscose Cellar Worker Name Role Phone Reij Castro MD Primary Care Provider [phone] Encounter Details Date Type Department Care Team (Late st Contact Info) Description 08/15/2021 Transcribed Document [facility] Family Medicine [facility] [place] [address] ProviderDelvin MD [address] [place] [id number] Social History Tobacco Use Types Packs/Day Years Used Date Smoking Tobacco: Never Assessed Comments Unknown Sex and Gender Information Value Date Recorded Sex Assigned at Not on file Legal Sex Female 4:32 PM CDT Gender Identity Not on file Sexual Orientation Not on file documented as of this encounter Miscellaneous Notes * Cerner Conversion Note - Delvin Celestin MD - 08/15/2021 12:49 PM CDT Patient: IRINA TAMAYO Age: 56 Years Sex: Female : 1965 Subjective Patient is complaining of pain/aching left upper chest where her port was removed yesterday. Requesting that her home narcotic regimen be increased in frequency. INR is still subtherapeutic. Hemoglobin slowly trending down. Blood pressure on the lower side. Vital Signs T: 36.6 ??C TMIN: 36.6 ??C TMAX: 36.7 ??C HR: 82(Monitored) RR: 17 BP: 102/61 SpO2: 94% Oxygen Settings (Last) Oxygen Therapy Mode: Nasal cannula (08/14/21 08:00:00) Oxygen Flow Rate: 1 Liter/Min (08/14/21 08:00:00) Intake & Output Totals Last 24 Hours (7a-7a) Input Total: 334 mL Output Total: 2100 mL Balance: -1766 mL Physical Exam General: Alert, well nourished, no acute distress Neurologic: Moves all 4 extremities spontaneously, oriented X3, no focal deficits appreciated Lungs: Clear to auscultation, non-labored respiration, no crackles, no wheeze Heart: Normal rate, regular rhythm, 3/6 mechanical murmur, no edema Abdomen: Soft, non-tender, non-distended, normal bowel sounds Musculoskeletal: No obvious deformity, no tenderness Skin: warm, dry, no rashes or lesions Psychiatric: Cooperative, appropriate mood and affect Assessment/Plan #CN Staph bacteremia, cultures positive from OSH Patient has mitral valve replacement as well as multiple sites of metal in her body?CHUCHO neg for endocarditis ID following: Cefazolin, Daptomycin?will need IV antibiotics until at least 09/08 Received 2 dose vancomycin Port removed 08/14 Repeat blood cx NGTD #Acute on chronic kidney disease III Suspect component of CKD, worsening with hypovolemia/dehydration Creatinine improving Nephrology following Avoid nephrotoxic medications #Autoimmune hemolytic anemia Patient has been followed by hematology/oncology Monitor Hgb, transfuse as needed Iron supplementation, folic acid #Chronic heart failure, A. fib, mechanical valve EF 55% INR subtherapeutic, 1.8?bridge with Heparin; goal INR 2.5-3.5 Aspirin, metoprolol Currently rate controlled Cardiology evaluated, signed off 08/14 Cont to hold bumex, spironolactone, valsartan due to borderline hypotension, TRISTAN #Diabetes Hold home meds SSI #Depression Celexa #Pain [place] 10 mg every 6 hours as needed Dispo: Pending results of blood culture and final decisions by ID. Will definitely need IV abx, at least until 09/08. Also will be admitted until INR is therapeutic VTE Prophylaxis - Medical Sequential Compression Device Start: 08/11/21 20:26:00 EDT, Bilateral, Length: Knee High, While patient is in bed, Continuous Order (REJI GUERRA) Medications acetaminophen, 650 mg= 2 Tab, Oral, Q6H, PRN albuterol 2.5 mg/3 mL (0.083%) inhalation solution, 3 mL, Nebulized Inhalation , RT_Q4H, PRN ALPRAZolam, 0.5 mg= 1 Tab, Oral, TID, PRN aspirin, 81 mg= 1 Tab, Oral, Daily ceFAZolin, 1 Gram= 50 mL, IV Piggyback, Q8HInt CeleXA, 40 mg= 2 Tab, Oral, Daily DAPTOmycin + Sodium Chloride 0.9% intravenous solution 50 mL Dextrose 50% injection, 25 Gram= 50 mL, IV Push, Q15Min, PRN Dextrose 50% injection, 25 Gram= 50 mL, IV Push, Q15Min, PRN Dextrose 50% injection, 25 Gram= 50 mL, IV Push, Q15Min, PRN Dextrose 50% injection, 12.5 Gram= 25 mL, IV Push, Q15Min, PRN docusate-senna 50 mg-8.6 mg oral tablet, 1 Tab, Oral, BID famotidine, 20 mg= 1 Tab, Oral, At Bedtime fentaNYL, 25 mcg= 0.5 mL, IV Push, Q4H, PRN ferrous gluconate, 324 mg= 1 Tab, Oral, Daily folic acid, 1 mg= 1 Tab, Oral, Daily glucagon, 1 mg= 1 mL, IntraMuscular, Q15Min, PRN glucose 4 g oral tablet, chewable, 16 Gram= 4 Tab, Chew, Q15Min, PRN glucose 40% oral gel, 15 Gram= 37.5 mL, Oral, Q15Min, PRN heparin injection 25,000 Units + NaCl 0.45% Premix Diluent 250 mL hydrALAZINE, 10 mg= 0.5 mL, IV Push, Q4H, PRN insulin lispro sliding scale, Scale C:, SubCutaneous, AC and at Bedtime ketotifen ophthalmic, 1 Drop, Eyes Both, BID labetalol, 10 mg= 2 mL, IV Push, Q4H, PRN Lactated Ringers Injection intravenous solution 1,000 mL, 1000 mL, IntraVENous lactobacillus acidophilus, 1 Cap, Oral, Daily levothyroxine, 25 mcg= 1 Tab, Oral, Daily [place] 10 mg-325 mg oral tablet, 1 Tab, Oral, Q6H, PRN ondansetron, 4 mg= 2 mL, IV Push, Q4H, PRN pantoprazole, 40 mg= 1 Tab, Oral, Daily Phenergan, 12.5 mg= 0.5 mL, IV Push, Q6H, PRN Toprol-XL, 25 mg= 1 Tab, Oral, QPM Lab Results Test Name Test Result Date/Time Sodium Level 137 mmol/L 08/15/2021 03:42 EDT Potassium Level 4.4 mmol/L 08/15/2021 03:42 EDT Chloride Level 104 mmol/L 08/15/2021 03:42 EDT Carbon Dioxide Level 27 mmol/L 08/15/2021 03:42 EDT Anion Gap 10 08/15/2021 03:42 EDT Glucose Level 139 mg/dL (High) 08/15/2021 03:42 EDT Blood Urea Nitrogen 28 mg/dL (High) 08/15/2021 03:42 EDT Creatinine Level 1.80 mg/dL (High) 08/15/2021 03:42 EDT eGFR 35 mL/min/1.73m2 (Low) 08/15/2021 03:42 EDT eGFR NonAfrican 29 mL/min/1.73m2 (Low) 08/15/2021 03:42 EDT Bun/Creatinine 15.6 08/15/2021 03:42 EDT Calcium Level 9.4 mg/dL 08/15/2021 03:42 EDT Protein Total 7.0 Gram/dL 08/15/2021 03:42 EDT Albumin Level 3.5 Gram/dL 08/15/2021 03:42 EDT Globulin 3.5 Gram/dL 08/15/2021 03:42 EDT A/G Ratio 1.0 (Low) 08/15/2021 03:42 EDT Bilirubin Total 0.4 mg/dL 08/15/2021 03:42 EDT Alk Phos 101 Units/Liter 08/15/2021 03:42 EDT AST 19 Units/Liter 08/15/2021 03:42 EDT ALT 17 Units/Liter 08/15/2021 03:42 EDT Device Comment 1 Protocols Followed 08/15/2021 10:45 EDT Device Comment 1 Notified Nurse RBV 08/15/2021 05:37 EDT Device Comment 1 Notified Nurse RBV 08/14/2021 20:28 EDT Device Comment 2 Notified Nurse RBV 08/15/2021 10:45 EDT Glucose POC2 136 mg/dL (High) 08/15/2021 10:45 EDT Glucose POC2 125 mg/dL (High) 08/15/2021 05:37 EDT Glucose POC2 107 mg/dL 08/14/2021 20:28 EDT Glucose POC2 98 mg/dL 08/14/2021 15:38 EDT ProBNP 635 pg/mL (High) 08/15/2021 03:42 EDT WBC 7.1 K/uL 08/15/2021 03:42 EDT WBC 6.7 K/uL 08/14/2021 16:02 EDT RBC 3.22 Million/uL (Low) 08/15/2021 03:42 EDT RBC 3.29 Million/uL (Low) 08/14/2021 16:02 EDT Hgb 7.9 g/dL (Low) 08/15/2021 03:42 EDT Hgb 8.0 g/dL (Low) 08/14/2021 16:02 EDT Hct 26.7 % (Low) 08/15/2021 03:42 EDT Hct 27.2 % (Low) 08/14/2021 16:02 EDT MCV 82.9 fL 08/15/2021 03:42 EDT MCV 82.7 fL 08/14/2021 16:02 EDT MCH 24.5 pg (Low) 08/15/2021 03:42 EDT MCH 24.3 pg (Low) 08/14/2021 16:02 EDT MCHC 29.6 Gram/dL (Low) 08/15/2021 03:42 EDT MCHC 29.4 Gram/dL (Low) 08/14/2021 16:02 EDT Platelet Count 197 K/uL 08/15/2021 03:42 EDT Platelet Count 210 K/uL 08/14/2021 16:02 EDT MPV 10.3 fL 08/15/2021 03:42 EDT MPV 9.9 fL 08/14/2021 16:02 EDT RDW 18.3 % (High) 08/15/2021 03:42 EDT RDW 18.1 % (High) 08/14/2021 16:02 EDT Neut % 78.1 % (High) 08/15/2021 03:42 EDT Neut % 77.4 % (High) 08/14/2021 16:02 EDT Neut # 5.52 K/uL 08/15/2021 03:42 EDT Neut # 5.19 K/uL 08/14/2021 16:02 EDT Lymph % 7.8 % (Low) 08/15/2021 03:42 EDT Lymph % 8.6 % (Low) 08/14/2021 16:02 EDT Lymph # 0.55 x10(3)/uL (Low) 08/15/2021 03:42 EDT Lymph # 0.58 x10(3)/uL (Low) 08/14/2021 16:02 EDT [place] % 7.1 % 08/15/2021 03:42 EDT [place] % 7.9 % 08/14/2021 16:02 EDT [place] # 0.50 K/uL 08/15/2021 03:42 EDT [place] # 0.53 K/uL 08/14/2021 16:02 EDT Eos % 5.7 % 08/15/2021 03:42 EDT Eos % 5.1 % 08/14/2021 16:02 EDT Eos # 0.40 x10(3)/uL 08/15/2021 03:42 EDT Eos # 0.34 x10(3)/uL 08/14/2021 16:02 EDT Baso % 0.6 % 08/15/2021 03:42 EDT Baso % 0.4 % 08/14/2021 16:02 EDT Baso # 0.04 x10(3)/uL 08/15/2021 03:42 EDT Baso # 0.03 x10(3)/uL 08/14/2021 16:02 EDT Slide Review No 08/15/2021 03:42 EDT Slide Review No 08/14/2021 16:02 EDT IG# 0.05 x10(3)/uL 08/15/2021 03:42 EDT IG# 0.04 x10(3)/uL 08/14/2021 16:02 EDT IG% 0.70 % (High) 08/15/2021 03:42 EDT IG% 0.60 % 08/14/2021 16:02 EDT PT 18.2 Second(s) (High) 08/15/2021 03:42 EDT PT 17.2 Second(s) (High) 08/14/2021 16:02 EDT INR 1.8 (High) 08/15/2021 03:42 EDT INR 1.7 (High) 08/14/2021 16:02 EDT PTT Heparin 134.1 Second(s) (Critical) 08/15/2021 10:50 EDT PTT Heparin 37.7 Second(s) (Low) 08/15/2021 03:42 EDT PTT Heparin 36.9 Second(s) (Low) 08/14/2021 22:11 EDT PTT Heparin 34.4 Second(s) (Low) 08/14/2021 16:02 EDT Electronically signed by [facility], [facility] Conversion Change Over Cerner at 03/09/2023 8:47 PM CDT documented in this encounter Plan of Treatment Not on file documented as of this encounter Visit Diagnoses Not on filedocumented in this encounter Care Teams Viscose Cellar Worker Relationship Specialty Start Date End Date Reji Castro MD [address] [place] [id number] PCP - General Adolescent Medicine 10/02/22 documented as of this encounter
--- OUTSIDE RECORDS SUMMARY | 2025-05-03 08:49 | XMS_ITS | Encounter Summary ---
Author Organization [employer] Address [address] [place] [address] Care Team Providers Care Senior Stack Engineer Name Role Phone Reji Castro MD Primary Care Provider [phone] Encounter Details Date Type Department Care Team (Late st Contact Info) Description 08/15/2021 Transcribed Document [facility] [place] [facility] [place] [address] ProviderDelvin MD [address] [place] [address] Social History Tobacco Use Types Packs/Day Years Used Date Smoking Tobacco: Never Assessed Comments Unknown Sex and Gender Information Value Date Recorded Sex Assigned at Not on file Legal Sex Female 4:32 PM CDT Gender Identity Not on file Sexual Orientation Not on file documented as of this encounter Miscellaneous Notes * Cerner Conversion Note - Delvin Celestin MD - 08/15/2021 5:00 PM CDT Chart Check - Review Order Profile Entered On: 08/15/2021 18:10 EDT Performed On: 08/15/2021 17:00 EDT by Nataly Watkins RN Chart Check Power[employer]ans Initiated/Discontinued as Appropriate : Yes All Active Orders Reviewed : Yes Nataly Watkins RN - 08/15/2021 18:10 EDT Electronically signed by Lanny [facility] Conversion Supervisor Of Research Cerner at 03/09/2023 8:38 PM CDT documented in this encounter Plan of Treatment Not on file documented as of this encounter Visit Diagnoses Not on filedocumented in this encounter Care Teams Senior Stack Engineer Relationship Specialty Start Date End Date Reji Castro MD [address] [place] [id number] PCP - General Adolescent Medicine 10/02/22 documented as of this encounter
--- OUTSIDE RECORDS SUMMARY | 2025-05-03 08:49 | XMS_ITS | Encounter Summary ---
Author Organization [employer] Address [address] [place] [address] Care Team Providers Care Director Traffic And Planning Name Role Phone Reji Castro MD Primary Care Provider [phone] Encounter Details Date Type Department Care Team (Late st Contact Info) Description 08/11/[address] [facility] [place] [address] [place] [address] ProviderDelvin MD [address] [place] [address] Social History Tobacco Use Types Packs/Day Years Used Date Smoking Tobacco: Never Assessed Comments Unknown Sex and Gender Information Value Date Recorded Sex Assigned at Not on file Legal Sex Female 4:32 PM CDT Gender Identity Not on file Sexual Orientation Not on file documented as of this encounter Miscellaneous Notes * Cerner Conversion Note - Delvin ProviderMD - 08/11/2021 4:16 PM CDT Broset Violence Assessment Entered On: 08/11/2021 18:48 EDT Performed On: 08/11/2021 18:46 EDT by MARIPOSA JACQUES RN Broset Violence Assessment Broset Violence Checklist of Symptoms : None Broset Violence Symptoms Subtotal : 0 Broset Violence Symptoms Indicator : Low risk (0) Broset Interventions : [place] precautions for safety used MARIPOSA JACQUES RN - 08/11/2021 18:46 EDT Electronically signed by Lanny [facility] Conversion Senior Game Advisor Cerner at 03/09/2023 8:46 PM CDT documented in this encounter Plan of Treatment Not on file documented as of this encounter Visit Diagnoses Not on filedocumented in this encounter Care Teams Director Traffic And Planning Relationship Specialty Start Date End Date Reji Castro MD [address] [place] [address] PCP - General Adolescent Medicine 10/02/22 documented as of this encounter
--- OUTSIDE RECORDS SUMMARY | 2025-05-03 08:50 | XMS_ITS | Encounter Summary ---
Author Organization [employer] Address [address] [facility] [place] [address] Care Team Providers Care Wall Cleaner Name Role Phone Reji Castro MD Primary Care Provider [phone] Encounter Details Date Type Department Care Team (Late st Contact Info) Description 08/14/2021 Transcribed Document [facility] [place] [facility] [place] [address] ProviderDelvin MD [address] [place] [address] Social History Tobacco Use Types Packs/Day Years Used Date Smoking Tobacco: Never Assessed Comments Unknown Sex and Gender Information Value Date Recorded Sex Assigned at Not on file Legal Sex Female 4:32 PM CDT Gender Identity Not on file Sexual Orientation Not on file documented as of this encounter Miscellaneous Notes * Cerner Conversion Note - Delvin ProviderMD - 08/14/2021 2:53 PM CDT Patient: IRINA TAMAYO Age: 56 Years Sex: Female : 1965 Subjective No complaints today. Had the port removed earlier today. Denies fever, chills. She is breathing fine, asking to remove oxygen. Able to maintain saturations on RA during our conversation. Denies abdominal pain, vomiting. Vital Signs T: 36.9 ??C TMIN: 36.6 ??C TMAX: 37.1 ??C HR: 88(Monitored) RR: 17 BP: 108/67 SpO2: 96% Oxygen Settings (Last) Oxygen Therapy Mode: Nasal cannula (08/14/21 08:00:00) Oxygen Flow Rate: 1 Liter/Min (08/14/21 08:00:00) Intake & Output Totals Last 24 Hours (7a-7a) Input Total: 1087.5 mL Output Total: 1800 mL Balance: -712.5 mL Physical Exam General: Alert, well nourished, [...] body?CHUCHO neg for endocarditis ID following: Cefazolin, Daptomycin Received 2 dose vancomycin Port removed 08/14 Repeat blood cx pending/NGTD #Acute renal sufficiency Suspect component of CKD, worsening with hypovolemia/dehydration Creatinine improving, 1.8 today Nephrology following Avoid nephrotoxic medications #Autoimmune hemolytic anemia Patient has been followed by hematology/oncology Monitor Hgb, transfuse as needed Iron supplementation, folic acid #Chronic heart failure, A. fib, mechanical valve EF 55% INR subtherapeutic, 1.8?bridge with Heparin Aspirin, metoprolol Currently rate controlled Cardiology following Cont to hold bumex, spironolactone, valsartan due to borderline hypotension, TRISTAN #Diabetes Hold home meds SSI #Depression Celexa Dispo: Pending results of blood culture. Will definitely need IV abx, at least until 09/08 VTE Prophylaxis - Medical Warfarin 6 mg, Oral, Tab, Daily, Routine, Start 08/11/21 20:44:00 EDT, 08/11/21 20:44:00 EDT (REJI GUERRA) Sequential Compression Device Start: 08/11/21 20:26:00 EDT, Bilateral, Length: Knee High, While patient is in bed, Continuous Order (REJI GUERRA) Medications acetaminophen, 650 mg= 2 Tab, Oral, Q6H, PRN acetaminophen-oxyCODONE 325 mg-10 mg oral tablet, 1 Tab, Oral, Q8H, PRN albuterol 2.5 mg/3 mL (0.083%) inhalation solution, 3 mL, Nebulized Inhalation , RT_Q4H, PRN ALPRAZolam, 0.5 mg= 1 Tab, Oral, TID, PRN aspirin, 81 mg= 1 Tab, Oral, Daily ceFAZolin, 1 Gram= 50 mL, IV Piggyback, Q8HInt CeleXA, 40 mg= 2 Tab, Oral, Daily Coumadin, 6 mg= 2 Tab, Oral, Daily DAPTOmycin + [...] 15 Gram= 37.5 mL, Oral, Q15Min, PRN hydrALAZINE, 10 mg= 0.5 mL, IV Push, Q4H, PRN insulin lispro sliding scale, Scale C:, SubCutaneous, AC and at Bedtime ketotifen ophthalmic, 1 Drop, Eyes Both, BID labetalol, 10 mg= 2 mL, IV Push, Q4H, PRN Lactated Ringers Injection intravenous solution 1,000 mL, 1000 mL, IntraVENous lactobacillus acidophilus, 1 Cap, Oral, Daily levothyroxine, 25 mcg= 1 Tab, Oral, Daily ondansetron, 4 mg= 2 mL, IV Push, Q4H, PRN pantoprazole, 40 mg= 1 Tab, Oral, Daily Phenergan, 12.5 mg= 0.5 mL, IV Push, Q6H, PRN Toprol-XL, 25 mg= 1 Tab, Oral, QPM traMADol, 50 mg= 1 Tab, Oral, Q6H, PRN Lab Results Test Name Test Result Date/Time Sodium Level 135 mmol/L (Low) 08/13/2021 23:47 EDT Potassium Level 4.2 mmol/L 08/13/2021 23:47 EDT Chloride Level 102 mmol/L 08/13/2021 23:47 EDT Carbon Dioxide Level 29 mmol/L 08/13/2021 23:47 EDT Anion Gap 8 (Low) 08/13/2021 23:47 EDT Glucose Level 114 mg/dL (High) 08/13/2021 23:47 EDT Blood Urea Nitrogen 35 mg/dL (High) 08/13/2021 23:47 EDT Creatinine Level 1.80 mg/dL (High) 08/13/2021 23:47 EDT eGFR 35 mL/min/1.73m2 (Low) 08/13/2021 23:47 EDT eGFR NonAfrican 29 mL/min/1.73m2 (Low) 08/13/2021 23:47 EDT Bun/Creatinine 19.4 08/13/2021 23:47 EDT Calcium Level 9.1 mg/dL 08/13/2021 23:47 EDT Protein Total 7.3 Gram/dL 08/13/2021 23:47 EDT Albumin Level 3.8 Gram/dL 08/13/2021 23:47 EDT Globulin 3.5 Gram/dL 08/13/2021 23:47 EDT A/G Ratio 1.1 08/13/2021 23:47 EDT Bilirubin Total 0.4 mg/dL 08/13/2021 23:47 EDT Alk Phos 102 Units/Liter 08/13/2021 23:47 EDT AST 18 Units/Liter 08/13/2021 23:47 EDT ALT 17 Units/Liter 08/13/2021 23:47 EDT Device Comment 1 Notified Nurse RBV 08/14/2021 11:13 EDT Glucose POC2 152 mg/dL (High) 08/14/2021 11:13 EDT Glucose POC2 97 mg/dL 08/14/2021 08:57 EDT ProBNP 647 pg/mL (High) 08/13/2021 23:47 EDT WBC 5.5 K/uL 08/13/2021 23:47 EDT RBC 3.29 Million/uL (Low) 08/13/2021 23:47 EDT Hgb 8.1 g/dL (Low) 08/13/2021 23:47 EDT Hct 26.9 % (Low) 08/13/2021 23:47 EDT MCV 81.8 fL 08/13/2021 23:47 EDT MCH 24.6 pg (Low) 08/13/2021 23:47 EDT MCHC 30.1 Gram/dL (Low) 08/13/2021 23:47 EDT Platelet Count 206 K/uL 08/13/2021 23:47 EDT MPV 10.0 fL 08/13/2021 23:47 EDT RDW 18.2 % (High) 08/13/2021 23:47 EDT Neut % 68.9 % 08/13/2021 23:47 EDT Neut # 3.78 K/uL 08/13/2021 23:47 EDT Lymph % 12.9 % (Low) 08/13/2021 23:47 EDT Lymph # 0.71 x10(3)/uL (Low) 08/13/2021 23:47 EDT [place] % 10.6 % (High) 08/13/2021 23:47 EDT [place] # 0.58 K/uL 08/13/2021 23:47 EDT Eos % 6.2 % 08/13/2021 23:47 EDT Eos # 0.34 x10(3)/uL 08/13/2021 23:47 EDT Baso % 0.7 % 08/13/2021 23:47 EDT Baso # 0.04 x10(3)/uL 08/13/2021 23:47 EDT Slide Review No 08/13/2021 23:47 EDT IG# 0.04 x10(3)/uL 08/13/2021 23:47 EDT IG% 0.70 % (High) 08/13/2021 23:47 EDT PT 17.0 Second(s) (High) 08/14/2021 12:00 EDT INR 1.6 (High) 08/14/2021 12:00 EDT PTT Heparin 47.3 Second(s) 08/13/2021 23:47 EDT PTT Heparin 41.3 Second(s) (Low) 08/13/2021 18:40 EDT Electronically signed by [facility] Conversion Accounting Representative Cerner at 03/09/2023 8:59 PM CDT documented in this encounter Plan of Treatment Not on file documented as of this encounter Visit Diagnoses Not on filedocumented in this encounter Care Teams Wall Cleaner Relationship Specialty Start Date End Date Reji Castro MD [address] [place] [id number] PCP - General Adolescent Medicine 10/02/22 documented as of this encounter
--- OUTSIDE RECORDS SUMMARY | 2025-05-03 08:50 | XMS_ITS | Encounter Summary ---
Author Organization [employer] Address [address] [place] [address] Care Team Providers Care Visual Merchandising Manager Name Role Phone Reji Castro MD Primary Care Provider [phone] Encounter Details Date Type Department Care Team (Late st Contact Info) Description 08/14/2021 Transcribed Document [facility] [place] Medicine [facility] [place] [address] ProviderDelvin MD [facility] [place] [address] Social History Tobacco Use Types Packs/Day Years Used Date Smoking Tobacco: Never Assessed Comments Unknown Sex and Gender Information Value Date Recorded Sex Assigned at Not on file Legal Sex Female 4:32 PM CDT Gender Identity Not on file Sexual Orientation Not on file documented as of this encounter Miscellaneous Notes * Cerner Conversion Note - Delvin Celestin MD - 08/14/2021 3:04 PM CDT Patient: IRINA TAMAYO Age: 56 years Sex: Female : 1965 Associated Diagnoses: None Author: Andrea Moraes, Resident Pharmacist Pharmacy Consult - Warfarin HPI: 56 y/o F presenting to [facility] with history of COPD, atrial fibrillation, CKD unknown stage, DMII, chronic anemias, CAD, & mitral valve mechanical valve. Port in left chest resulting positive blood cultures at check up. Pharmacy consulted to dose warfarin 2/2 atrial fibrillation. Indication: atrial fibrillation Consulting Provider: Dr. Jaimes Home Dose: warfarin 6 mg PO qHS INR Goal: 2-3 Bridge Therapy: heparin gtt heparin gtt reinitiated per Clyde Corral PA-C given he held it 2/2 procedure on 08/14 Drug Interactions: - MODERATE: warfarin + any of the following --> diltiazem, torsemide, spironolactone, pantoprazole, citalopram, cefazolin - may have POTENTIAL to increase side effects and/or bleeding risk of warfarin Active Medications Ordered acetaminophen: 650 mg, Oral, Q6H, PRN: Pain (Mild 1-3). acetaminophen-oxyCODONE: 1 Tab, Oral, Q8H, PRN: Pain (Severe 7-10). albuterol: 3 mL, Nebulized Inhalation, RT_Q4H, PRN: Shortness of Breath. ALPRAZolam: 0.5 mg, Oral, TID, PRN: Anxiety. aspirin: 81 mg, Oral, Daily. ceFAZolin: 1 Gram, 50 mL, 100 mL/Hr, IV Piggyback, Q8HInt. citalopram: 40 mg, Oral, Daily. DAPTOmycin + Sodium Chloride 0.9% intravenous solution 50 mL: 700 mg, 14 mL, 128 mL/Hr, IV Piggyback, [id number]. docusate-senna: 1 Tab, Oral, BID. famotidine: 20 mg, Oral, At Bedtime. fentaNYL: 25 mcg, IV Push, Q4H, PRN: Pain (Severe 7-10). ferrous gluconate: 324 mg, Oral, Daily. folic acid: 1 mg, Oral, Daily hydrALAZINE: 10 mg, IV Push, Q4H, PRN: Hypertension. insulin lispro: Scale C:, SubCutaneous, AC and at Bedtime. ketotifen ophthalmic: 1 Drop, Eyes Both, BID. labetalol: 10 mg, IV Push, Q4H, PRN: Hypertension. Lactated Ringers Injection intravenous solution 1,000 mL: 20 mL/Hr, IntraVENous. lactobacillus acidophilus: 1 Cap, Oral, Daily. levothyroxine: 25 mcg, Oral, Daily. metoprolol: 25 mg, Oral, QPM. ondansetron: 4 mg, IV Push, Q4H, PRN: Nausea. pantoprazole: 40 mg, Oral, Daily. promethazine: 12.5 mg, IV Push, Q6H, PRN: Nausea. traMADol: 50 mg, Oral, Q6H, PRN: Pain (Moderate 4-6). warfarin: 6 mg, Oral, Daily. Allergies (5) Active Reaction anabolic steroids Congestive heart failure Detrol Congestive heart failure Dye None Documented glipiZIDE Congestive heart failure metFORMIN Congestive heart failure BMI BMI: 32.7 Weight: 86.39kg - Standing scale Height: 162.56cm (5ft ) - Stated Vitals Signs (last 24 hrs) Last Charted Minimum Maximum Temp 98.5 (AUG 14 11:00) 97.9 (AUG 14 08:47) 98.7 (AUG 13 23:19) Apical HR 74 (AUG 14 08:52) L 59 (AUG 14 08:52) 86 (AUG 13 21:55) Mon HR 88 (AUG 14 11:00) 73 (AUG 14 06:35) 105 (AUG 14 10:25) Resp Rate 17 (AUG 14 11:00) 16 (AUG 13 23:19) 18 (AUG 14 05:27) SBP 108 (AUG 14 10:25) L 71 (AUG 14 08:52) 108 (AUG 14 10:25) DBP 67 (AUG 14 10:25) L 49 (AUG 14 08:47) 67 (AUG 14 10:25) MAP 78 (AUG 14 10:25) 61 (AUG 14 04:30) 78 (AUG 14 10:25) SpO2 96 (AUG 14 11:00) L 91 (AUG 14 05:27) 98 (AUG 13:19) Labs (Last four charted values) WBC 5.5 (AUG 13) 5.5 (AUG 13) 5.0 (AUG 12) 4.7 (AUG 12) HB L 8.1 (AUG 13) L 8.5 (AUG 13) L 8.5 (AUG 12) L 8.8 (AUG 12) HCT L 26.9 (AUG 13) L 28.7 (AUG 13) L 28.4 (AUG 12) L 28.8 (AUG 12) Plt 206 (AUG 13) 197 (AUG 13) 212 (AUG 12) 206 (AUG 12) Na L 135 (AUG 13) 136 (AUG 13) L 134 (AUG 12) L 131 (AUG 11) K 4.2 (AUG 13) 4.5 (AUG 13) 3.6 (AUG 12) 4.1 (AUG 11) Cl 102 (AUG 13) 103 (AUG 13) L 98 (AUG 12) L 96 (AUG 11) CO2 29 (AUG 13) 30 (AUG 13) 29 (AUG 12) 26 (AUG 11) BUN H 35 (AUG 13) H 50 (AUG 13) H 69 (AUG 12) H 70 (AUG 11) Cr H 1.80 (AUG 13) H 1.60 (AUG 13) H 2.40 (AUG 12) H 2.50 (AUG 11) Glu R H 114 (AUG 13) 102 (AUG 13) H 134 (AUG 12) 87 (AUG 11) Ca 9.1 (AUG 13) 9.1 (AUG 13) 9.6 (AUG 12) 10.0 (AUG 11) Lactic .93 (AUG 12) L .73 (AUG 11) PT H 17.0 (AUG 14) H 16.3 (AUG 13) H 17.5 (AUG 12) H 17.1 (AUG 12) INR H 1.6 (AUG 14) H 1.6 (AUG 13) H 1.7 (AUG 12) H 1.6 (AUG 12) PTT H 39.6 (AUG 11) AST 18 (AUG 13) 17 (AUG 13) 16 (AUG 12) 18 (AUG 11) ALT 17 (AUG 13) 19 (AUG 13) 23 (AUG 12) 25 (AUG 11) ALK P 102 (AUG 13) 102 (AUG 13) 110 (AUG 12) 128 (AUG 11) T Bili 0.4 (AUG 13) 0.5 (AUG 13) 0.6 (AUG 12) 0.7 (AUG 11) PTN 7.3 (AUG 13) 6.9 (AUG 13) 7.6 (AUG 12) H 8.7 (AUG 11) ALB 3.8 (AUG 13) 3.9 (AUG 13) 3.9 (AUG 12) 4.4 (AUG 11) Lipase 224 (AUG 13) Troponin <0.015 (AUG 12) <0.015 (AUG 11) <0.015 (AUG 11) Current Warfarin Trend Date 08/11 08/12 08/13 08/14 08/15 INR 1.8 1.7 1.6 1.6 Dose NO DOSE 6 mg 6 mg HOLD Bridge NONE heparin gtt heparin gtt HOLD Creatinine Clearance (Current Encounter/Past 24 Hours) Creatinine Level 1.80 mg/dL MS 08/14/2021 07:29 Bun/Creatinine 19.4 08/14/2021 00:14 Estimated Creatinine Clearance 29.42 mL/Min 08/14/2021 00:14 Intake & Output Totals Last 24 Hours (7a-7a) Input Total: 1087.5 mL Output Total: 1800 mL Balance: -712.5 mL A/P: 1.) D/w Urbano Mena PA-C via phone: plans to hold warfarin & heparin gtt today (08/14) given removal of infected left subclavian Port-A-Cath - resume tomorrow (08/15) in AM - re-bolus & titrate upon reinitiation per heparin protocol (indication: bridge therapy) - above plan confirmed via verbal read back on phone & d/w nurse who confirmed plan of care 2.) Pt received warfarin 6 mg PO yesterday (08/13) + heparin gtt - both will be held today (08/14) given procedure. Both are planned for resumption tomorrow (08/15) in AM. 3.) Daily PT/INR ordered. Goal INR 2-3. Possible interactions noted above. No major interactions at this time. 4.) Please monitor pt closely given subtherapeutic INR while inpatient & bridge therapy being held. Pt at risk for possible complications. 5.) Pharmacy will continue to follow & monitor. Please reach out with any questions. Thank you, Andrea Moraes, PharmD PGY1 Elementary Principal Pager: [phone], Ext. [phone] Electronically signed by Lanny [facility] Conversion Upper Doubler Cerner at 03/09/2023 8:49 PM CDT documented in this encounter Plan of Treatment Not on file documented as of this encounter Visit Diagnoses Not on filedocumented in this encounter Care Teams Visual Merchandising Manager Relationship Specialty Start Date End Date Reji Castro MD [address] [place] [id number] PCP - General Adolescent Medicine 10/02/22 documented as of this encounter
--- OUTSIDE RECORDS SUMMARY | 2025-05-03 08:50 | XMS_ITS | Encounter Summary ---
Author Organization [employer] Address [address] [place] [address] Care Team Providers Care Roll Or Tape Edge Machine Operator Name Role Phone Reji Castro MD Primary Care Provider [phone] Encounter Details Date Type Department Care Team (Late st Contact Info) Description 08/20/2021 Transcribed Document [facility] [place] Medicine [facility] [place] [address] ProviderDelvin MD [address] [place] [address] Social History Tobacco Use Types Packs/Day Years Used Date Smoking Tobacco: Never Assessed Comments Unknown Sex and Gender Information Value Date Recorded Sex Assigned at Not on file Legal Sex Female 4:32 PM CDT Gender Identity Not on file Sexual Orientation Not on file documented as of this encounter Miscellaneous Notes * Cerner Conversion Note - Delvin Celestin MD - 08/20/2021 1:33 PM CDT On Going Discharge Planning Entered On: 08/20/2021 13:35 EDT Performed On: 08/20/2021 13:33 EDT by MADINA LOVETT, JEREMIAH - Plastering ContractorWildland Firefighter Progress Note Discharge Arrangements : Patient Post-Acute Information Patient Name: IRINA TAMAYO Gender: Female : [birth year] Age: 56 Years No Post-Acute Placement(s) Listed No Post-Acute Service(s) Listed No [place] Referral(s) Listed Discharge Options Discussed with Patient : DME, Home Health, Short term rehabilitation Barriers to Discharge Identified : Clinical Condition of Patient Barriers to Discharge Unresolved : Clinical Condition of Patient Is the Patient Meeting Medical Necessity : Yes Did you Attend Multidisciplinary Rounds? : Yes MADINA LOVETT RN - Plastering Contractor - 08/20/2021 13:33 EDT Narrative Progress Note Narrative Progress Note : RRS Low Boost 5 Day 07/30 Patient was admitted for staph infection and port removal. She had a new port placed on 08/19. Patient needs to remain inpatient until her coumadin is at a therapeutic level per at [facility]. Patient will need IV rocephin until 09/08. Patient will need home health and says she has used [facility] home health in the past. CM will refer her to them after final antibiotic order is placed. DCP: home with home health Historical Progress Note : RRS Low Boost 5 Day 05/26 Patient was admitted for staph infection and port removal. She had a new port done on . 08/19. Patient needs to remain inpatient after surgery until her coumadin is at a therapeutic level per at [facility]. Waiting on culture results for final abx plan. May need IV abx at home via port. Patient will need home health and lvies in [place]. [facility] home health is a possibility. MADINA LOVETT RN - Plastering Contractor - 08/19/21 15:40:22 RRS Low Boost 5 Day 05/26 Patient was admitted for a staph infection and will need to have her port removed. Consults to neph, surg, ID. Port will be replaced tomorrow 08/19. She is on a hep gtt. Patient needs to remain inpatient after surgery until her coumadin is at a therapeutic level. Waiting on culture results for final ID abx plan. Patient will probably discharge home and may need home IV abx via the port. Pt will need home health and lives in [place]. [facility] home health is a possibility. CM will continue to follow. DCP: MADINA LOVETT RN - Plastering Contractor - 08/18/21 15:47:49 (late entry from 08/15-) HD 3. ELOS 5. High RAR. DX: MSSA bacteremia, sepsis Discussed pt during MDR with care team with Dr. Mason summers 08/15. Pt's port was removed on 08/14 [...] home infusion via port. PT will need to follow for labs and port-a-cath care. CM will follow and send referrals as appropriate. JULIO STEWART, RN-Plastering Contractor ED - 08/18/21 10:38:39 MADINA LOVETT, JEREMIAH - Plastering Contractor - 08/20/2021 13:33 EDT Electronically signed by [facility], [facility] Conversion Park Maintainer Cerner at 03/09/2023 8:49 PM CDT documented in this encounter Plan of Treatment Not on file documented as of this encounter Visit Diagnoses Not on filedocumented in this encounter Care Teams Roll Or Tape Edge Machine Operator Relationship Specialty Start Date End Date Reji Castro MD [address] [place] [id number] PCP - General Adolescent Medicine 10/02/22 documented as of this encounter
--- OUTSIDE RECORDS SUMMARY | 2025-05-03 08:50 | XMS_ITS | Encounter Summary ---
Author Organization [employer] Address [address] [place] [address] Care Team Providers Care Survey Supervisor Name Role Phone Reji Castro MD Primary Care Provider [phone] Encounter Details Date Type Department Care Team (Late st Contact Info) Description 08/20/2021 Transcribed Document [facility] [place] [address] [place] [address] ProviderDelvin MD [address] [place] [address] Social History Tobacco Use Types Packs/Day Years Used Date Smoking Tobacco: Never Assessed Comments Unknown Sex and Gender Information Value Date Recorded Sex Assigned at Not on file Legal Sex Female 4:32 PM CDT Gender Identity Not on file Sexual Orientation Not on file documented as of this encounter Miscellaneous Notes * Cerner Conversion Note - Historical ProviderMD - 08/20/2021 5:00 AM CDT Height and Weight, Routine Entered On: 08/20/2021 6:41 EDT Performed On: 08/20/2021 5:00 EDT by Eula Tinoco Line Cleaner-Health Unit Coord Height and Weight, Routine Routine Weight Source : Standing scale Routine Weight Entry Format : Coleman Routine Weight, Pounds : 204 lb Routine Weight, Ounces : 7 oz Routine Weight Calculation : 92.93 kg Height Source : Stated Height Entry Format : Coleman Height, Feet : 5 ft Height, Inches : 4 Inch Clinical Height : 162.56 cm Body Surface Area (BSA), Routine : 1.98 m2 Body Mass Index (BMI), Routine : 35.17 kg/m2 Eula Tinoco Line Cleaner-Health Unit Coord - 08/20/2021 6:41 EDT Electronically signed by Lanny, [facility] Conversion Civil Drafting Technician Cerner at 03/09/2023 8:44 PM CDT documented in this encounter Plan of Treatment Not on file documented as of this encounter Visit Diagnoses Not on filedocumented in this encounter Care Teams Survey Supervisor Relationship Specialty Start Date End Date Reji Castro MD [address] [place] [address] PCP - General Adolescent Medicine 10/02/22 documented as of this encounter
--- OUTSIDE RECORDS SUMMARY | 2025-05-03 08:50 | XMS_ITS | Encounter Summary ---
Author Organization [employer] Address [address] [place] [address] Care Team Providers Care Locomotive Switch Operator Name Role Phone Reji Castro MD Primary Care Provider + [phone] Encounter Details Date Type Department Care Team (Late st Contact Info) Description 08/15/2021 Transcribed Document [facility] Family Medicine [facility] [place] [address] ProviderDelvin MD [facility] [place] [address] Social History Tobacco Use Types Packs/Day Years Used Date Smoking Tobacco: Never Assessed Comments Unknown Sex and Gender Information Value Date Recorded Sex Assigned at Not on file Legal Sex Female 4:32 PM CDT Gender Identity Not on file Sexual Orientation Not on file documented as of this encounter Miscellaneous Notes * Cerner Conversion Note - Delvin Celestin MD - 08/15/2021 12:46 PM CDT Patient: IRINA TAMAYO Age: 56 years Sex: Female : 1965 Associated Diagnoses: None Author: LISA RICKETTS MD-INF Basic Information cc: CN staph bacteremia, probable infected portacath, r/o prosthetic MV endocarditis HISTORY OF PRESENT ILLNESS 56 year old female with NICM with EF 35-40% , CHF, rheumatic valve disease s/p mechanical mitral valve replacement (2005), chronic atrial fibrillation, DMII, CKD, COPD and autoimmune hemolytic anemia for which she has had 180 units PRBCs. She had a portacath placed ~ 3 years ago for transfusions. Last month her port could not be accessed. Her project management professional aspirated fluid from the port that was evidently purulent. I have not yet been able to track down that culture. After the aspiration she developed fever to 103, severe CHEUNG, myalgias and arthralgias. She was admitted to [facility]. She was in the hospital for 10 days. She states that she was treated with parenteral levaquin over that period. She states that she had a TTE and CHUCHO. She was told that her heart valves did not have a vegetation but that there was a finding that indicated that her port was infected. She states that she was discharged off antibiotics. On 08/08 she presented to a [facility] after she developed severe CHEUNG and myalgias w/o prominent fever. She was subsequently contacted and told to report to [facility] because she had + blood cutures concerning for an infected portacath +/- PVE. I contacted the micro lab at [facility] and was told that she did not have blood cultures sent 06/25. Her next encounter at the hospital was 07/09 where 1 of 2 blood cultures grew Staph epi. Repeat blood cultures 07/11 were negative. On 08/08 she had 2 blood cultures which grew Staph capitus S to oxacillin and other betalactams except penicillin. When she presented to the ED as instructed she was found to have Cr 2.5, ProBNP 813, H/H 9.04/21, INR 1.8. She c/o dyspnea and pleuritic chest pain 08/13 Afebrile, CHEUNG and myalgias improved, no new symptoms, 08/11 blood cultures (antibiotic modified) remain negative Scheduled for port removal tomorrow. CHUCHO negative for vegetations 08/15 Afebrile, port removed yesterday, mild discomfort from where port removed. 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 Review of Systems ROS reviewed as documented in chart Health Status Current medications: (Selected) Inpatient Medications Ordered ALPRAZolam: 0.5 mg, Oral, TID, PRN: Anxiety CeleXA: 40 mg, Oral, Daily Coumadin: 6 mg, Oral, Daily Coumadin: 7.5 mg, Oral, Daily DAPTOmycin + Sodium Chloride 0.9% intravenous solution 50 mL: 700 mg, 14 mL, 128 mL/Hr, IV Piggyback, [id number] Dextrose 50% injection: 12.5 Gram, IV Push, Q15Min, PRN: Other (See Comment) Dextrose 50% injection: 25 Gram, IV Push, Q15Min, PRN: Other (See Comment) Dextrose 50% injection: 25 Gram, IV Push, Q15Min, PRN: Other (See Comment) Dextrose 50% injection: 25 Gram, IV Push, Q15Min, PRN: Other (See Comment) Lactated Ringers Injection intravenous solution 1,000 mL: 20 mL/Hr, IntraVENous Boyce 10 mg-325 mg oral tablet: 1 Tab, Oral, Q6H, PRN: Pain (Moderate 4-6) Phenergan: 12.5 mg, IV Push, Q6H, PRN: Nausea Toprol-XL: 25 mg, Oral, QPM acetaminophen: 650 mg, Oral, Q6H, PRN: Pain (Mild 1-3) albuterol 2.5 mg/3 mL (0.083%) inhalation solution: 3 mL, Nebulized Inhalation, RT_Q4H, PRN: Shortness of Breath aspirin: 81 mg, Oral, Daily ceFAZolin: 1 Gram, 50 mL, 100 mL/Hr, IV Piggyback, Q8HInt docusate-senna 50 mg-8.6 mg oral tablet: 1 Tab, Oral, BID famotidine: 20 mg, Oral, At Bedtime fentaNYL: 25 mcg, IV Push, Q4H, PRN: Pain (Severe 7-10) ferrous gluconate: 324 mg, Oral, Daily folic acid: 1 mg, Oral, Daily glucagon: 1 mg, IntraMuscular, Q15Min, PRN: Other (See Comment) glucose 4 g oral tablet, chewable: 16 Gram, 4 Tab, Chew, Q15Min, PRN: Other (See Comment) glucose 40% oral gel: 15 Gram, 37.5 mL, Oral, Q15Min, PRN: Other (See Comment) heparin injection 25,000 Units + NaCl 0.45% Premix Diluent 250 mL: Titrate, IntraVENous hydrALAZINE: 10 mg, IV Push, Q4H, PRN: Hypertension insulin lispro sliding scale: Scale C:, SubCutaneous, AC and at Bedtime ketotifen ophthalmic: 1 Drop, Eyes Both, BID labetalol: 10 mg, IV Push, Q4H, PRN: Hypertension lactobacillus acidophilus: 1 Cap, Oral, Daily levothyroxine: 25 mcg, Oral, Daily ondansetron: 4 mg, IV Push, Q4H, PRN: Nausea pantoprazole: 40 mg, Oral, Daily Documented Medications Documented ALPRAZolam 0.5 mg oral tablet: 1 Tab, Oral, TID, PRN: anxiety, 0 Refill(s) Celexa 40 mg oral tablet: 1 Tab, Oral, Daily, 30 Tab Coumadin 5 mg oral tablet: 1 Tab, Oral, Daily, 0 Refill(s) Dexilant 60 mg oral delayed release capsule: 1 Cap, Oral, Daily, 30 Cap Diovan 80 mg oral tablet: 0.5 Tab, Oral, Daily, 0 Refill(s) Farxiga 10 mg oral tablet: 1 Tab, Oral, Daily, 0 Refill(s) Metoprolol Succinate ER 50 mg oral tablet, extended release: 1 Tab, Oral, Daily, 0 Refill(s) Percocet 10/325 oral tablet: 1 Tab, Oral, Q8H, PRN: for pain, 0 Refill(s) Probiotic Formula oral capsule: 1 Cap, Oral, Daily, takes with dinner Toujeo SoloStar 300 units/mL subcutaneous solution: 80 Units, SubCutaneous, At Bedtime, 0 Refill(s) aspirin 81 mg oral tablet, chewable: 1 Tab, Oral, Daily, 30 Tab, 0 Refill(s) bumetanide 2 mg oral tablet: 1 Tab, Oral, BID, 0 Refill(s) cefdinir 300 mg oral capsule: 1 Cap, Oral, Q12H, for 10 Day(s), Start Date: 08/10/2021, 20 Cap, 0 Refill(s) docusate-senna 50 mg-8.6 mg oral tablet: 1 Tab, Oral, BID, 30 Tab, 0 Refill(s) famotidine 20 mg oral tablet: 1 Tab, Oral, At Bedtime, 0 Refill(s) folic acid 1 mg oral tablet: 1 Tab, Oral, Daily, 0 Refill(s) levothyroxine 25 mcg (0.025 mg) oral tablet: 1 Tab, Oral, Daily, 0 Refill(s) olopatadine 0.2% ophthalmic solution: 1 Drop, Eyes Both, Daily, 0 Refill(s) potassium chloride 20 mEq oral tablet, extended release: 1 Tab, Oral, Daily, 0 Refill(s) spironolactone 25 mg oral tablet: 2 Tab, Oral, BID, 180 Tab, 0 Refill(s) Physical Examination VS/Measurements Vitals Signs (last 24 hrs) Last Charted Minimum Maximum Temp 97.8 (AUG 15 09:37) 97.8 (AUG 15 09:37) 98.1 (AUG 15 06:00) Apical HR 82 (AUG 14 20:41) 82 (AUG 14 20:41) 82 (AUG 14 20:41) Mon HR 82 (AUG 15 09:37) 58 (AUG 14 22:00) 91 (AUG 15 06:00) Resp Rate 17 (AUG 15 09:37) 16 (AUG 14 17:21) 18 (AUG 14 14:36) SBP 102 (AUG 15 09:37) 91 (AUG 15 06:00) 114 (AUG 14 14:36) DBP 61 (AUG 15 09:37) L 54 (AUG 15 06:00) 76 (AUG 14 17:21) MAP 81 (AUG 15 09:37) 68 (AUG 15 03:00) 86 (AUG 14 17:21) SpO2 94 (AUG 15 06:00) L 91 (AUG 14 22:00) 97 (AUG 15 03:00) General: Alert and oriented, No acute distress. Eye: Extraocular movements are intact, Normal conjunctiva. HENT: Normocephalic, Oral mucosa is moist, No pharyngeal erythema. Neck: Supple, Non-tender, No jugular venous distention, No lymphadenopathy. Respiratory: Lungs are clear to auscultation, Respirations are non-labored, Breath sounds are equal. Cardiovascular: Normal rate, Regular rhythm, No murmur, Normal peripheral perfusion, No edema. Gastrointestinal: Soft, Non-tender, Non-distended, Normal bowel sounds. Genitourinary: No costovertebral angle tenderness. Musculoskeletal: Normal range of motion, No tenderness, No swelling, No deformity. Integumentary: Warm, Miller. Neurologic: Alert, Oriented, No focal deficits. Psychiatric: Cooperative, Appropriate mood & affect. Review / Management Results review: Labs (Last four charted values) WBC 7.1 (SEP 24) 6.7 (SEP 23) 5.5 (SEP 22) 5.5 [...] (SEP 22) 30 (SEP 22) 29 (SEP 21) BUN H 28 (SEP 24) H 35 (SEP 22) H 50 [...] L .73 (SEP 20) PT H 18.2 (SEP 24) H 17.2 (SEP 23) H 17.0 (SEP 23) H 16.3 (SEP 22) INR H 1.8 (SEP 24) H 1.7 (SEP 23) H 1.6 (SEP 23) H 1.6 (SEP 22) PTT H 39.6 (SEP 20) AST 19 (SEP 24) 18 (SEP 22) 17 (SEP 22) 16 (SEP 21) ALT 17 (SEP 24) 17 (SEP 22) 19 (SEP 22) 23 (AUG 12) ALK P 101 (AUG 15) 102 (AUG 13) 102 (AUG 13) 110 (AUG 12) T Bili 0.4 (AUG 15) 0.4 (AUG 13) 0.5 (AUG 13) 0.6 (AUG 12) PTN 7.0 (AUG 15) 7.3 (AUG 13) 6.9 (AUG 13) 7.6 (AUG 12) ALB 3.5 (AUG 15) 3.8 (AUG 13) 3.9 (AUG 13) 3.9 (AUG 12) Lipase 224 (AUG 13) Troponin <0.015 (AUG 12) <0.015 (AUG 11) <0.015 (AUG 11) . Impression and Plan IMPRESSION -- CN Staph bacteremia History concerning for infected chest catheter with secondary infection of prosthetic MV Data available by phone indicate staph epi from 07/09 blood culture (oxacillin sensitive ) and staph capitus from 08/08 blood culture (also oxacillin sensitive) it is conceivable that the these could be the same organisms suggesting prolonged bacteremia concerning for prosthetic valve endocarditis -- MVR 2005 -- Portacath placement 2018 - removed 08/14/21 -- Autoimmune hemolytic anemia requiring frequent transfusions -- Acute on CKD- stage 2 per patient although based on recent creatinine it may be higher -- Nephrolthiasis and multiple urologic surgeries -- COPd -- Remote tobacco abuse RECOMMENDATIONS -- cefazolin and daptomycin while blood cultures are pending If cultures remain negative anticipate home on rocephin 2g daily -- new portacath placement 08/19 -- continue antibiotics via peripheral IV until new portacath can be placed 08/19 -- If cath tip culture negative, I plan to discharge on rocephin 2g daily to 09/08 -- if 08/11 blood cultures remain negative I recommend parenteral antibiotics to 09/08 to complete 4 weeks therapy. It the 08/11 blood cultures turn + I would recommend therapy to 09/22 UR: rocephin 2g daily to 09/08; weekly cbc and cmp; routine care of paula cath Electronically signed by Lanny [facility] [employer] Vault Attendant Cerner at 03/09/2023 8:49 PM CDT documented in this encounter Plan of Treatment Not on file documented as of this encounter Visit Diagnoses Not on filedocumented in this encounter Care Teams Locomotive Switch Operator Relationship Specialty Start Date End Date Reji Castro MD [address] [place] [id number] PCP - General Adolescent Medicine 10/02/22 documented as of this encounter
--- OUTSIDE RECORDS SUMMARY | 2025-05-03 08:50 | XMS_ITS | Encounter Summary ---
Author Organization [employer] Address [address] [place] [address] Care Team Providers Care Project Management Professor Name Role Phone Reji Castro MD Primary Care Provider [phone] Encounter Details Date Type Department Care Team (Late st Contact Info) Description 08/26/2021 Transcribed Document [facility] [place] [address] [place] [address] ProviderDelvin MD [address] [place] [id number] Social History Tobacco Use Types Packs/Day Years Used Date Smoking Tobacco: Never Assessed Comments Unknown Sex and Gender Information Value Date Recorded Sex Assigned at Not on file Legal Sex Female 4:32 PM CDT Gender Identity Not on file Sexual Orientation Not on file documented as of this encounter Miscellaneous Notes * Cerner Conversion Note - Delvin ProviderMD - 08/26/2021 1:44 PM CDT Patient: IRINA TAMAYO Age: 56 years Sex: Female : 1965 Associated Diagnoses: None Author: FAIZA YOUSSEF, Subjective pt seen and examined 08/26 feeling better today chest pain still present in left anterior chest wall just left of sternum, never went away but is much improved, pt believes feels like 'chest wall' pain states occasionally has to 'think about' taking a breath 99 sats on room air generalized poor exercise tolerance from prolonged stay no bleeding Review of Systems Constitutional: No fever, No chills. Gastrointestinal: No nausea, No vomiting, No diarrhea. Genitourinary: No dysuria. Immunologic: No recurrent fevers. Health Status Allergies: Allergic Reactions (Selected) Severity Not Documented Anabolic steroids- Congestive heart failure. Buprenorphine- No reactions were documented. Codeine- No reactions were documented. Detrol- Congestive heart failure. Dye- No reactions were documented. GlipiZIDE- Congestive heart failure. MetFORMIN- Congestive heart failure. Penicillins- No reactions were documented. Propafenone- No reactions were documented. Theophylline- No reactions were documented., Allergies (5) Active Reaction anabolic steroids Congestive heart failure Detrol Congestive heart failure Dye None Documented glipiZIDE Congestive heart failure metFORMIN Congestive heart failure Current medications: (Selected) Inpatient Medications Ordered ALPRAZolam: 0.5 mg, Oral, TID, PRN: Anxiety Bumex: 1 mg, Oral, BID CeleXA: 40 mg, Oral, Daily Coumadin: 10 mg, Oral, 1-Time Dextrose 50% injection: 12.5 Gram, IV Push, Q15Min, PRN: Other (See Comment) Dextrose 50% injection: 25 Gram, IV Push, Q15Min, PRN: Other (See Comment) Dextrose 50% injection: 25 Gram, IV Push, Q15Min, PRN: Other (See Comment) Dextrose 50% injection: 25 Gram, IV Push, Q15Min, PRN: Other (See Comment) Milk of Magnesia 8% oral suspension: 30 mL, Oral, Daily, PRN: Constipation MiraLax: 17 Gram, Oral, Daily, PRN: Constipation Percocet 10/325: 1 Tab, Oral, Q6H, PRN: Pain (Moderate 4-6) Phenergan: 12.5 mg, IV Push, Q6H, PRN: Nausea Toprol-XL: 25 mg, Oral, QPM acetaminophen: 650 mg, Oral, Q6H, PRN: Pain (Mild 1-3) albuterol 2.5 mg/3 mL (0.083%) inhalation solution: 3 mL, Nebulized Inhalation, RT_Q4H, PRN: Shortness of Breath aspirin: 81 mg, Oral, Daily cefTRIAXone: 2 Gram, 100 mL/Hr, IV Piggyback, [id number] diphenhydrAMINE: 25 mg, Oral, Q6H, PRN: Itching docusate-senna 50 mg-8.6 mg oral tablet: 1 Tab, Oral, BID fentaNYL: 25 mcg, IV Push, Q4H, PRN: Pain (Severe 7-10) folic acid: 1 mg, Oral, Daily glucagon: [...] PRN: Nausea pantoprazole: 40 mg, Oral, Daily spironolactone: 25 mg, Oral, BID warfarin: 1 Each, Oral, Weekly Documented Medications Documented ALPRAZolam 0.5 mg oral [...] 2 Tab, Oral, BID, 180 Tab, 0 Refill(s), Medications (35) Active Scheduled: (15) aspirin 81 mg chew tab 81 mg 1 Tab, Oral, Daily bumetanide 1 mg tab 1 mg 1 Tab, Oral, BID cefTRIAXone 2 Gram, IV Piggyback, [id number] citalopram 20 mg tab 40 mg 2 Tab, Oral, Daily folic acid 1 mg tab 1 mg 1 Tab, Oral, Daily insulin lispro 1 unit/0.01 mL inj Scale C:, SubCutaneous, AC and at Bedtime ketotifen fum 0.025% ophth soln 5 mL 1 Drop, Eyes Both, BID lactobacillus acidophilus cap 1 Cap, Oral, Daily levothyroxine 25 mcg tab 25 mcg 1 Tab, Oral, Daily metoprolol succinate XL 25 mg tab 25 mg 1 Tab, Oral, QPM pantoprazole EC 40 mg tab 40 mg 1 Tab, Oral, Daily senna/docusate 8.6/50 mg tab 1 Tab, Oral, BID spironolactone 25 mg tab 25 mg 1 Tab, Oral, BID warfarin 10 mg tab 10 mg 1 Tab, Oral, 1-Time Warfarin Dosing by Pharmacy 1 Each, Oral, Weekly Continuous: (1) heparin/NaCl 0.45% 25,000 Units + Premix Diluent NaCl 0.45% 250 mL 250 mL, IntraVENous PRN: (19) acetaminophen 325 mg tab 650 mg 2 Tab, Oral, Q6H acetaminophen/oxyCODONE 325/10 mg tab 1 Tab, Oral, Q6H albuterol 0.083% inh soln 3 mL 3 mL, Nebulized Inhalation, RT_Q4H ALPRAZolam 0.5 mg tab 0.5 mg 1 Tab, Oral, TID dextrose 50% 25 g/50 mL inj syr 25 Gram 50 mL, IV Push, Q15Min dextrose 50% 25 g/50 mL inj syr 25 Gram 50 mL, IV Push, Q15Min dextrose 50% 25 g/50 mL inj syr 25 Gram 50 mL, IV Push, Q15Min dextrose 50% 25 g/50 mL inj syr 12.5 Gram 25 mL, IV Push, Q15Min diphenhydrAMINE 25 mg tab 25 mg 1 Tab, Oral, Q6H fentaNYL 100 mcg/2 mL inj 25 mcg 0.5 mL, IV Push, Q4H glucagon 1 mg/1 mL inj 1 mg 1 mL, IntraMuscular, Q15Min glucose 4 g tab 16 Gram 4 Tab, Chew, Q15Min glucose 40% gel 15 g 15 Gram 37.5 mL, Oral, Q15Min hydrALAZINE 20 mg/1 mL inj 10 mg 0.5 mL, IV Push, Q4H labetalol 100 mg/20 mL inj 10 mg 2 mL, IV Push, Q4H magnesium hydroxide 8% liq 30 mL 30 mL, Oral, Daily ondansetron 4 mg/2 mL inj 4 mg 2 mL, IV Push, Q4H polyethylene glycol 3350 pwd 17 g pkt 17 Gram 1 Packet, Oral, Daily promethazine 25 mg/1 mL inj 12.5 mg 0.5 mL, IV Push, Q6H Problem list: Medical Bioprosthetic mitral valve replacement / SNOMED CT 264741528 / Confirmed Chronic kidney disease / SNOMED CT 5560019130 / Confirmed COPD - Chronic obstructive pulmonary disease / SNOMED CT 314569929 / Confirmed History of obstructive sleep apnea / IMO [id number] / Confirmed HLD - Hyperlipidemia / SNOMED CT 368545476 / Confirmed HTN - Hypertension / SNOMED CT 9561294411 / Confirmed Canceled: Atrial fibrillation / SNOMED CT 42985110, Active Problems (25) AIHA (autoimmune hemolytic anemia) [...] Renal calculus Restless legs syndrome Thyroid disease Objective VS/Measurements Vitals Signs (last 24 hrs) Last Charted Minimum Maximum Temp 97.9 (AUG 26 11:00) 97.9 (AUG 26 11:00) 97.7 (AUG 25 18:39) Apical HR 81 (AUG 25 22:24) 81 (AUG 25 22:24) 81 (AUG 25 22:24) Mon HR 85 (AUG 26 11:00) 77 (AUG 25 19:00) 87 (AUG 25 18:46) Resp Rate 14 (AUG 26:31) 14 (AUG 25 21:01) 16 (AUG 25 18:39) SBP 115 (AUG 26 11:00) 92 (AUG 25 14:19) 115 (AUG 26 11:00) DBP 69 (AUG 26 11:00) L 49 (AUG 25 19:00) 69 (AUG 26 11:00) MAP 80 (AUG 26 11:00) 71 (AUG 25 14:19) 85 (AUG 26 05:31) SpO2 96 (AUG 26:31) 96 (AUG 25 14:19) 100 (AUG 25 18:46) General: Alert and oriented, No acute distress, lying flat in bed on her side, on room air, comfortable and generally well appearing. Eye: Pupils are equal, round and reactive to light, Extraocular movements are intact, Normal conjunctiva. HENT: Normocephalic, Normal hearing, Oral mucosa is moist. Neck: Supple, Non-tender, No thyromegaly. Respiratory: Breath sounds are equal, generally clear, no wheeze, rales, Port in place right chest wall. Cardiovascular: Normal rate, Normal peripheral perfusion, No edema, Mechanical click heard. . Gastrointestinal: Soft, Non-tender, Non-distended, Normal bowel sounds. Musculoskeletal: Normal strength, No tenderness. Integumentary: Warm, No rash. Neurologic: Alert, Oriented, Normal motor function, No focal deficits, Cranial Nerves II-XII are grossly intact. Psychiatric: Cooperative, Appropriate mood & affect. Review / Management AUG 26 03:52 138 L 99 H 23 / 103 4.0 H 35 H 1.30 \ AUG 26 03:52 \ L 8.4 / 4.5 L 152 / L 29.0 \ Radiology Results (Last 48 hours) [id number] -- 08/11/2021 21:21 CR Chest 1 Vw Portable (08/25/2021 10:14) Result: PORTABLE CHEST 08/25/2021 9:34 AM HISTORY: Precordial chest pain .COMPARISON: August 22, 2021.FINDINGS: The heart is stable in size. The lung cisnreos demonstrate nosignificant change in the diffuse interstitial changes. There is nopneumothorax. The support devices are in good position. Status postmedian sternotomy.IMPRESSION: There has been no significant interval change .Continued follow-up recommended.Images reviewed, interpreted, and dictated by Dr. Keke Malhotra.Transcribed by Ottoniel Madera (R).I have personally viewed, interpreted and dictated the examination. Ihave read and agree with the above final transcribed report. Results review: Labs (Last four charted values) WBC 4.5 (AUG 26) 5.4 (AUG 25) 5.6 (AUG 24) 6.1 (AUG 23) HB L 8.4 (AUG 26) L 7.7 (AUG 25) L 7.8 (AUG 24) L 7.6 (AUG 23) HCT L 29.0 (AUG 26) L 26.5 (AUG 25) L 26.6 (AUG 03) L 26.0 (AUG 02) Plt L 152 (AUG 26) 180 (AUG 25) 194 (AUG 24) 181 (AUG 23) Na 138 (AUG 26) 140 (AUG 25) 137 (AUG 03) 139 (AUG 02) K 4.0 (AUG 26) 4.1 (AUG 25) 3.9 (AUG 03) 3.8 (AUG 02) Cl L 99 (AUG 26) L 99 (AUG 25) L 99 (OCT 03) L 101 (AUG 23) CO2 H 35 (AUG 26) H 37 (AUG 25) H 35 (AUG 24) H 34 (AUG 23) BUN H 23 (AUG 26) 22 (AUG 25) H 23 (AUG 24) 19 (AUG 23) Cr H 1.30 (AUG 26) H 1.40 (AUG 25) H 1.40 (AUG 24) H 1.40 (AUG 23) Glu R 103 (AUG 26) 91 (AUG 25) H 120 (AUG 24) H 118 (AUG 23) Ca 9.4 (AUG 26) 9.7 (AUG 25) 9.4 (AUG 24) 9.1 (AUG 23) Lactic .93 (AUG 12) L .73 (AUG 11) PT H 22.4 (AUG 26) H 19.3 (AUG 25) H 18.8 (AUG 24) H 18.4 (AUG 23) INR H 2.2 (AUG 26) H 1.9 (AUG 25) H 1.8 (AUG 24) H 1.8 (AUG 23) PTT H 39.6 (AUG 11) AST 17 (AUG 18) 19 (AUG 15) 18 (AUG 13) 17 (AUG 13) ALT L 12 (AUG 18) 17 (AUG 15) 17 (AUG 13) 19 (AUG 13) ALK P 110 (AUG 18) 101 (AUG 15) 102 (AUG 13) 102 (AUG 13) T Bili 0.6 (AUG 18) 0.4 (JUL 24) 0.4 (AUG 13) 0.5 (AUG 13) PTN 6.8 (AUG 18) 7.0 (AUG 15) 7.3 (AUG 13) 6.9 (AUG 13) ALB 3.9 (AUG 18) 3.5 (JUL 24) 3.8 (AUG 13) 3.9 (AUG 13) Lipase 224 (AUG 13) Troponin <0.015 (AUG 25) <0.015 (AUG 25) <0.015 (AUG 12) <0.015 (AUG 11) . Medication Changes from Previous Midnight to Current New Medications: bumetanide (Bumex) 1 mg, Oral, Tab, BID, Routine, Start 08/25/21 17:00:00 EDT, 08/25/21 12:13:00 EDT MAURA CARROLL MD warfarin 1 Each, Oral, MISC, Weekly, Start 08/25/21 18:00:00 EDT FAIZA YOUSSEF DO warfarin (Coumadin) 10 mg, Oral, Tab, 1-Time, Start 08/26/21 18:00:00 EDT, Stop 08/26/21 18:00:00 EDT FAIZA YOUSSEF DO Discontinued Medications: bumetanide (Bumex) 2 mg, Oral, Tab, BID, NOW, Start 08/18/21 18:34:00 EDT, 08/18/21 18:34:00 EDT MAURA CARROLL MD famotidine 20 mg, Oral, Tab, At Bedtime, Routine, Start 08/12/21 21:00:00 EDT, 08/12/21 12:10:00 EDT FAIZA YOUSSEF DO warfarin (Coumadin) 7.5 mg, Oral, Tab, Daily, Start 08/24/21 18:00:00 EDT LOREN TENA MD-INT Impression: Technically difficult study due to patient body habitus. Optison ultrasound enhancing agent administered to enhance endocardial borders. Mildly dilated left ventricle. Mild left ventricular hypertrophy. Visually estimated ejection fraction 55% +/- 5%. Normal left ventricular systolic function. Indeterminate diastolic function. Dilated right ventricle. Mildly abnormal right ventricular systolic dysfunction. Stable mechanical mitral valve replacement. Peak/Mean PG 14/4 mmHg. Unable to assess mitral regurgitation due to shielding. Severe (4+) tricuspid regurgitation. Mild pulmonary hypertension. RVSP possibly underestimated due to decreased right ventricular systolic function. Severely abnormal left atrial volume index 87.9 ml/m2. Severely abnormal right atrial size. Elevated central venous pressure (>15mmHg). Impression and Plan mssa bacteremia cultures positive from OSH Patient has mitral valve replacement as well as multiple sites of metal in her body?CHUCHO neg for endocarditis ID following: ?will need IV antibiotics until at least 09/08 Port removed 08/14. Catheter tip cultures neg S/P Port-A-Cath replacement 08/18/2021. po Coumadin and IV heparin resumed.... approaching therapeutic inr can have home iv abx at time of dc Acute on chronic kidney disease III Suspect component of CKD, worsening with hypovolemia/dehydration better Autoimmune hemolytic anemia Patient has been followed by hematology/oncology Monitor Hgb, transfuse as needed if hemoglobin less than 8.0 g/dL; as pt reports this as her hematologic goal per her treating subspecialist No active bleed Iron supplementation, folic acid Status post multiple blood transfusions in the past; transfuse one unit today per pt reported goal hgb S/p IV iron infusion chest pain, atypical ekg reviewed, a fib with RBBB, no acute changes moved to tele to monitor initial trop neg; will repeat x 1 chronic severe TR 4+, right ventricular systolic dysfunction, A. fib, mechanical valve EF 55% INR subtherapeutic, 1.8?bridge with Heparin; goal INR 2.5-3.5 Aspirin, metoprolol Currently rate controlled Cardiology evaluated, signed off 08/14; rec pt f/u with Dr. Sawyer as outpt Diabetes Hold home meds SSI Depression Celexa Pain Empire 10 mg every 6 hours as needed CODE STATUS. Full code Dispo: H/H stable, neg trops, clinically better need therapeutic inr for discharge, pharm managing. hopefully in am Time spent 26 minutes documented in this encounter Plan of Treatment Not on file documented as of this encounter Visit Diagnoses Not on filedocumented in this encounter Care Teams Project Management Professor Relationship Specialty Start Date End Date Reji Castro MD [address] [place] [id number] PCP - General Adolescent Medicine 10/02/22 documented as of this encounter
--- OUTSIDE RECORDS SUMMARY | 2025-05-03 08:50 | XMS_ITS | Encounter Summary ---
Author Organization [employer] Address [address] [place] [address] Care Team Providers Care In School Suspension Coordinator Name Role Phone Reji Castro MD Primary Care Provider [phone] Encounter Details Date Type Department Care Team (Late st Contact Info) Description 08/20/2021 Transcribed Document [facility] [place] [facility] [place] [address] ProviderDelvin MD [facility] [place] [address] Social History Tobacco Use Types Packs/Day Years Used Date Smoking Tobacco: Never Assessed Comments Unknown Sex and Gender Information Value Date Recorded Sex Assigned at Not on file Legal Sex Female 4:32 PM CDT Gender Identity Not on file Sexual Orientation Not on file documented as of this encounter Miscellaneous Notes * Cerner Conversion Note - Delvin ProviderMD - 08/20/2021 2:00 AM CDT [employer] Details Entered On: 08/20/2021 3:08 EDT Performed On: 08/20/2021 2:00 EDT by Genna Gonsalez RN Order Details Transport Mode Order Detail : Wheelchair Isolation Precautions Order Detail : Standard Precautions Order Detail : 0 IV Order Detail : 1 Oxygen Order Detail : 1 Nurse Collect Order Detail : 0 Lift/Transfer : Independent Central Line Order Detail : No Room Service : Appropriate Arterial Line : No Patient Needs Meds Crushed/Liquid : No Genna Gonsalez RN - 08/20/2021 3:08 EDT documented in this encounter Plan of Treatment Not on file documented as of this encounter Visit Diagnoses Not on filedocumented in this encounter Care Teams In School Suspension Coordinator Relationship Specialty Start Date End Date Reji Castro MD [address] [place] [id number] PCP - General Adolescent Medicine 10/02/22 documented as of this encounter
--- OUTSIDE RECORDS SUMMARY | 2025-05-03 08:50 | XMS_ITS | Encounter Summary ---
Author Organization [employer] Address [address] [place] [address] Care Team Providers Care Driver Education Road Instructor Name Role Phone Reji Castro MD Primary Care Provider [phone] Encounter Details Date Type Department Care Team (Late st Contact Info) Description 08/14/2021 Transcribed Document [facility] [place] [facility] [place] [address] ProviderDelvin MD [facility] [place] [address] Social History Tobacco Use Types Packs/Day Years Used Date Smoking Tobacco: Never Assessed Comments Unknown Sex and Gender Information Value Date Recorded Sex Assigned at Not on file Legal Sex Female 4:32 PM CDT Gender Identity Not on file Sexual Orientation Not on file documented as of this encounter Miscellaneous Notes * Cerner Conversion Note - Delvin ProviderMD - 08/14/2021 4:23 PM CDT Patient: IRINA TAMAYO Age: 56 Years Sex: Female : 1965 Subjective Cr 1.6-1.8mg/dl Doing well otherwise. Vital Signs T: 36.6 ??C TMIN: 36.6 ??C TMAX: 37.1 ??C HR: 81(Monitored) RR: 18 BP: 114/60 SpO2: 95% Oxygen Settings (Last) Oxygen Therapy Mode: Nasal cannula (08/14/21 08:00:00) Oxygen Flow Rate: 1 Liter/Min (08/14/21 08:00:00) Intake & Output Totals Last 24 Hours (7a-7a) Input Total: 1087.5 mL Output Total: 1800 mL Balance: -712.5 mL Physical Exam General: Appears well, alert Neck: Supple, - JVD Resp: Clear to auscultate b/l, no wheeze, no rhonchi CVS: S1, S2, RRR, no rubs or gallop rhythm, no murmur GI: Soft, non tender, BS+ Ext: - edema b/l Neuro: AAX3, non focal findings, no tremors Skin: - Rash Assessment/Plan #TRISTAN on CKd stage III #MSSA bactermia #Sepsis #Hx of left ureteral stent placement and left hydronephrosis in 2013 #Afib #HTN #Autoimmune hemolytic anemia #Transfusion dependent anemia Recs TRISTAN on CKD stage III. Baseline cr 1.6mg/dl. Cr on this admit 2.4-2.5mg/dl. Interval improvement in renal function with volume expansion. TRISTAN in the setting of hemodynamic variation and sepsis. Previous hx of ureteral stent placement in 2013. Removed later. Given renal function close to baseline. Will recommend conservative care. Encourage oral hydration. Abx per primary service. Dose meds to eGFR. Avoid nephrotoxic agents. Check weekly CK while on daptomycin. Thank you for consult will continue to monitor the patient during this admission VTE Prophylaxis - Medical Warfarin 6 mg, [...] Nurse RBV 08/14/2021 11:13 EDT Glucose POC2 98 mg/dL 08/14/2021 15:38 EDT Glucose POC2 152 mg/dL (High) 08/14/2021 [...] # 0.71 x10(3)/uL (Low) 08/13/2021 23:47 EDT [place] % 10.6 % (High) 08/13/2021 23:47 EDT [place] # 0.58 K/uL 08/13/2021 23:47 EDT [place] [...] (Low) 08/13/2021 18:40 EDT Electronically signed by [facility] Conversion [employer] Laborer Cerner at 03/09/2023 8:31 PM CDT documented in this encounter Plan of Treatment Not on file documented as of this encounter Visit Diagnoses Not on filedocumented in this encounter Care Teams Driver Education Road Instructor Relationship Specialty Start Date End Date Reji Castro MD [address] [place] [id number] PCP - General Adolescent Medicine 10/02/22 documented as of this encounter
--- OUTSIDE RECORDS SUMMARY | 2025-05-03 08:50 | XMS_ITS | Encounter Summary ---
Author Organization [employer] Address [address] [place] [address] Care Team Providers Care Curbing Stonecutter Name Role Phone Reji Castro MD Primary Care Provider [phone] Encounter Details Date Type Department Care Team (Late st Contact Info) Description 08/25/2021 Transcribed Document [facility] [place] [address] [place] [address] ProviderDelvin MD [address] [place] [address] Social History Tobacco Use Types Packs/Day Years Used Date Smoking Tobacco: Never Assessed Comments Unknown Sex and Gender Information Value Date Recorded Sex Assigned at Not on file Legal Sex Female 4:32 PM CDT Gender Identity Not on file Sexual Orientation Not on file documented as of this encounter Miscellaneous Notes * Cerner Conversion Note - Historical ProviderMD - 08/25/2021 11:02 AM CDT Event Note Entered On: 08/25/2021 11:05 EDT Performed On: 08/25/2021 11:02 EDT by WILLIAMS HANEY RN Event Note Event Date/Time : 08/25/2021 9:10 EDT Event Location : Assigned room Event Details : Change in condition Description of Event : Patient stated she has chest pain, called [facility] Team, called md. Vitals signs stable. Put zoll on patient. Stat ekg ordered, cxr and troponin. Patient transferred to [facility]. WILLIAMS HANEY RN - 08/25/2021 11:02 EDT documented in this encounter Plan of Treatment Not on file documented as of this encounter Visit Diagnoses Not on filedocumented in this encounter Care Teams Curbing Stonecutter Relationship Specialty Start Date End Date Reji Castro MD [address] [place] [address] PCP - General Adolescent Medicine 10/02/22 documented as of this encounter
--- OUTSIDE RECORDS SUMMARY | 2025-05-03 08:50 | XMS_ITS | Encounter Summary ---
Author Organization [employer] Address [address] [place] [address] Care Team Providers Care Die Reamer Name Role Phone Reji Castro MD Primary Care Provider [phone] Encounter Details Date Type Department Care Team (Late st Contact Info) Description 08/14/2021 Transcribed Document [facility] [place] [address] [place] [address] ProviderDelvin MD [address] [place] [id number] Social History Tobacco Use Types Packs/Day Years Used Date Smoking Tobacco: Never Assessed Comments Unknown Sex and Gender Information Value Date Recorded Sex Assigned at Not on file Legal Sex Female 4:32 PM CDT Gender Identity Not on file Sexual Orientation Not on file documented as of this encounter Miscellaneous Notes * Cerner Conversion Note - Delvin Celestin MD - 08/14/2021 7:45 AM CDT [facility] Main OR Preop Summary Primary Physician: NENA PEARSON MD-[facility] Finalized Date/Time: 08/14/21 09:52:23 Pt. Name: IRINA TAMAYO/Sex: 1965 Female Med Rec #: [id number] Physician: VINCE BELLO MD Financial #: [id number] Pt. Type: I Room/Bed: 454/1 Admit/Disch: 08/11/21 21:21:00 - Institution: [facility] PreOp Case Times Entry 1 In Preop 08/14/21 06:28:00 Ready for Holding n/a Room Patient Ready for 08/14/21 06:46:00 Surgery Patient Out of Preop 08/14/21 07:32:00 Patient Out of n/a Holding Room Last Modified By: Charan Dutton Rn 08/14/21 09:52:22 [facility] PreOp Case Times Audit 08/14/21 09:52:22 Validation Engineer: [email or web address] Modifier: [email or web address] <+> 1 Patient Out of Preop Finalized By: Charan Dutton, Rn Document Signatures Signed By: Charan Dutton Rn 08/14/21 09:52 Electronically signed by [facility] Conversion Supervisor Print Line Cerner at 03/09/2023 8:46 PM CDT documented in this encounter Plan of Treatment Not on file documented as of this encounter Visit Diagnoses Not on filedocumented in this encounter Care Teams Die Reamer Relationship Specialty Start Date End Date Reji Castro MD [address] [place] [id number] PCP - General Adolescent Medicine 10/02/22 documented as of this encounter
--- OUTSIDE RECORDS SUMMARY | 2025-05-03 08:50 | XMS_ITS | Encounter Summary ---
Author Organization [employer] Address [address] [place] [address] Care Team Providers Care Plow Mechanic Name Role Phone Reji Castro MD Primary Care Provider [phone] Encounter Details Date Type Department Care Team (Late st Contact Info) Description 08/26/2021 Transcribed Document [facility] [place] Family Medicine [address] [place] [address] ProviderDelvin MD [address] [place] [address] Social History Tobacco Use Types Packs/Day Years Used Date Smoking Tobacco: Never Assessed Comments Unknown Sex and Gender Information Value Date Recorded Sex Assigned at Not on file Legal Sex Female 4:32 PM CDT Gender Identity Not on file Sexual Orientation Not on file documented as of this encounter Miscellaneous Notes * Cerner Conversion Note - Delvin ProviderMD - 08/26/2021 2:00 AM CDT Accountant Assistant Details Entered On: 08/26/2021 4:16 EDT Performed On: 08/26/2021 2:00 EDT by Pamela Miguel, JEREMIAH Order Details Transport Mode Order Detail : Wheelchair Isolation Precautions Order Detail : Standard Precautions Order Detail : 0 IV Order Detail : 1 Oxygen Order Detail : 0 Nurse Collect Order Detail : 1 Lift/Transfer : Independent Central Line Order Detail : Yes Room Service : Appropriate Arterial Line : No Patient Needs Meds Crushed/Liquid : No Pamela Miguel, JEREMIAH - 08/26/2021 4:15 EDT documented in this encounter Plan of Treatment Not on file documented as of this encounter Visit Diagnoses Not on filedocumented in this encounter Care Teams Plow Mechanic Relationship Specialty Start Date End Date Reji Castro MD [address] [place] [id number] PCP - General Adolescent Medicine 10/02/22 documented as of this encounter
--- OUTSIDE RECORDS SUMMARY | 2025-05-03 08:50 | XMS_ITS | Encounter Summary ---
Author Organization [employer] Address [address] [place] [address] Care Team Providers Care Book Trimmer Name Role Phone Reji Castro MD Primary Care Provider [phone] Encounter Details Date Type Department Care Team (Late st Contact Info) Description 08/19/2021 Transcribed Document [facility] [place] [facility] [place] [address] ProviderDelvin MD [facility] [place] [address] Social History Tobacco Use Types Packs/Day Years Used Date Smoking Tobacco: Never Assessed Comments Unknown Sex and Gender Information Value Date Recorded Sex Assigned at Not on file Legal Sex Female 4:32 PM CDT Gender Identity Not on file Sexual Orientation Not on file documented as of this encounter Miscellaneous Notes * Cerner Conversion Note - Delvin Celestin MD - 08/19/2021 3:22 PM CDT Patient: IRINA TAMAYO Age: 56 years Sex: Female : 1965 Associated Diagnoses: None Author: Andrea Moraes, Resident Pharmacist Pharmacy Consult - Warfarin HPI: 56 y/o F presenting to [facility] with history of COPD, atrial fibrillation, CKD unknown stage, DMII, chronic anemias, CAD, & mitral valve mechanical valve. Port in left chest resulting positive blood cultures at check up. Pharmacy consulted to dose warfarin 2/2 atrial fibrillation. Indication: atrial fibrillation Consulting Provider: Dr. Jaimes - (hospitalist: Dr. Solorzano) Home Dose: warfarin 6 mg PO daily INR Goal: 2.5-3.5 Bridge Therapy: heparin gtt heparin gtt reinitiated per Clyde Corral PA-C given he held it 2/2 procedure on 08/14 d/w Dr. Cuevas: original goal INR 2-3, but should be 2.5-3.5 given mechanical MV + atrial fibrillation d/w Dr. Solorzano (08/19): verbal orders given on multidisciplinary rounds for anticoagulation plan Drug Interactions: - MODERATE: warfarin + any of the following --> levothyroxine, pantoprazole, famotidine, citalopram, ceftriaxone - may have POTENTIAL to increase side effects and/or bleeding risk of warfarin Medication List Active Medications Ordered acetaminophen: 650 mg, Oral, Q6H, PRN: Pain (Mild 1-3). acetaminophen-oxyCODONE: 1 Tab, Oral, Q6H, PRN: Pain (Moderate 4-6). albuterol: 3 mL, Nebulized Inhalation, RT_Q4H, PRN: Shortness of Breath. ALPRAZolam: 0.5 mg, Oral, TID, PRN: Anxiety. aspirin: 81 mg, Oral, Daily. bumetanide: 2 mg, Oral, BID. cefTRIAXone: 2 Gram, 100 mL/Hr, IV Piggyback, [id number]. citalopram: 40 mg, Oral, Daily. diphenhydrAMINE: 50 mg, IV Push, On-CALL, PRN: Anaphylaxis. diphenhydrAMINE: 25 mg, Oral, Q6H, PRN: Itching. docusate-senna: 1 Tab, Oral, BID. EPINEPHrine: 1 mg, IntraMuscular, On-CALL, PRN: Anaphylaxis. famotidine: 20 mg, Oral, At Bedtime. fentaNYL: 25 mcg, IV Push, Q4H, PRN: Pain (Severe 7-10). folic acid: 1 mg, Oral, Daily. hydrALAZINE: 10 mg, IV Push, Q4H, PRN: Hypertension. insulin lispro: Scale C:, SubCutaneous, AC and at Bedtime. ketotifen ophthalmic: 1 Drop, Eyes Both, BID. labetalol: 10 mg, IV Push, Q4H, PRN: Hypertension. lactobacillus acidophilus: 1 Cap, Oral, Daily. levothyroxine: 25 mcg, Oral, Daily. magnesium hydroxide: 30 mL, Oral, Daily, PRN: Constipation. metoprolol: 25 mg, Oral, QPM. ondansetron: 4 mg, IV Push, Q4H, PRN: Nausea. pantoprazole: 40 mg, Oral, Daily. promethazine: 12.5 mg, IV Push, Q6H, PRN: Nausea. sodium ferric gluconate complex + Sodium Chloride 0.9% intravenous solution 230 mL: 250 mg, 20 mL, 125 mL/Hr, IV Piggyback, Daily. Allergies (5) Active Reaction anabolic steroids Congestive heart failure Detrol Congestive heart failure Dye None Documented glipiZIDE Congestive heart failure metFORMIN Congestive heart failure BMI BMI: 32.7 Weight: 86.39kg - Standing scale Height: 162.56cm (5ft ) - Stated Vitals Signs (last 24 hrs) Last Charted Minimum Maximum Temp 97.9 (AUG 19 11:22) 97.9 (AUG 19:) 99.1 (AUG 19 06:30) Apical HR 87 (AUG 18 20:53) 87 (AUG 18 20:53) 87 (AUG 18 20:53) Mon HR 59 (AUG 19 11:22) 59 (AUG 19 11:22) 87 (AUG 18 15:27) Resp Rate 18 (AUG 19 11:22) 16 (AUG 19 00:00) 20 (AUG 18 18:17) SBP 114 (AUG 19 11:22) 94 (AUG 18 21:00) 120 (AUG 18 18:17) DBP 61 (AUG 19 11:22) L 55 (AUG 18 21:00) 67 (AUG 19 06:30) MAP 80 (AUG 19 11:22) 67 (AUG 18 21:00) 87 (AUG 18 18:17) SpO2 L 93 (AUG 19 11:22) L 88 (AUG 18 20:00) 98 (AUG 19 06:30) Labs (Last four charted values) WBC H 10.8 (AUG 19) 7.0 (AUG 18) 6.4 (AUG 17) 7.1 (AUG 15) HB L 7.2 (AUG 19) L 7.7 (AUG 18) L 7.5 (AUG 17) L 7.5 (AUG 16) HCT L 25.3 (AUG 19) L 26.2 (AUG 18) L 25.4 (AUG 17) L 25.9 (AUG 16) Plt 207 (AUG 19) 207 (AUG 18) 195 (AUG 17) 197 (JUL 24) Na 137 (AUG 19) L 134 (AUG 18) L 135 (AUG 17) 137 (AUG 16) K 4.3 (AUG 19) 4.6 (AUG 18) 4.4 (AUG 17) 4.4 (AUG 16) Cl 105 (AUG 19) 105 (AUG 18) 104 (AUG 17) 106 (AUG 16) CO2 28 (AUG 19) 28 (AUG 18) 27 (AUG 17) 25 (AUG 16) BUN 16 (AUG 19) 18 (AUG 18) 18 (AUG 17) H 23 (AUG 16) Cr H 1.60 (AUG 19) H 1.40 (AUG 18) H 1.20 (AUG 17) H 1.40 (AUG 16) Glu R H 191 (AUG 19) H 137 (AUG 18) H 126 (AUG 17) H 112 (AUG 16) Ca 9.2 (AUG 19) 8.8 (AUG 18) 8.9 (AUG 17) 9.5 (AUG 16) Lactic .93 (AUG 12) L .73 (AUG 11) PT H 13.5 (AUG 19) H 13.6 (AUG 18) H 14.6 (AUG 17) H 17.2 (AUG 16) INR H 1.3 (AUG 19) H 1.3 (AUG 18) H 1.4 (AUG 17) H 1.7 (AUG 16) PTT H 39.6 (AUG 11) AST 17 (AUG 18) 19 (JUL 24) 18 (AUG 13) 17 (AUG 13) ALT L 12 (AUG 18) 17 (JUL 24) 17 (AUG 13) 19 (AUG 13) ALK P 110 (AUG 18) 101 (SEP 24) 102 (AUG 13) 102 (AUG 13) T Bili 0.6 (AUG 18) 0.4 (SEP 24) 0.4 (AUG 13) 0.5 (AUG 13) PTN 6.8 (AUG 18) 7.0 (JUL 24) 7.3 (AUG 13) 6.9 (AUG 13) ALB 3.9 (JUL 27) 3.5 (SEP 24) 3.8 (SEP 22) 3.9 (SEP 22) Lipase 224 (AUG 13) Troponin <0.015 (AUG 12) <0.015 (AUG 11) <0.015 (AUG 11) Current Warfarin Trend Date 08/11 08/12 08/13 08/14 08/15 08/16 08/17 INR 1.8 1.7 1.6 1.7 1.8 1.7 1.4 Dose NO DOSE 6 mg 6 mg HOLD HOLD HOLD HOLD Bridge NONE heparin gtt heparin gtt HOLD heparin gtt heparin gtt heparin gtt Date 08/18 08/19 08/20 INR 1.3 1.3 Dose HOLD [6 mg] Bridge *heparin gtt* to midnight NONE [heparin gtt] [in AM] Creatinine Clearance (Current Encounter/Past 24 Hours) Creatinine Level 1.60 mg/dL HI 08/19/2021 12:08 Bun/Creatinine 10.0 08/19/2021 12:08 Estimated Creatinine Clearance 33.10 mL/Min 08/19/2021 12:08 Intake & Output Totals Last 24 Hours (7a-7a) Input Total: 702 mL Output Total: 3000 mL Balance: -2298 mL A/P: 1.) Per Dr. Jeanine MD 08/19 note: s/p Port-A-Cath placement - resume warfarin tonight (08/19) + hold heparin gtt 2/2 bleeding at surgery site. 2.) D/w Dr. Solorzano at multidisciplinary rounds: verbal orders to resume warfarin 6 mg PO daily tonight (08/19) + re-initiate heparin gtt in AM (08/20) - heparin gtt indication: bridge therapy 2/2 atrial fibrillation initial bolus: 6800 units initial infusion rate: 15.3 mL/hr 3.) INR today (08/19) is 1.3, which is subtherapeutic. See above for above for anticoagulation plan. - INR has been subtherapeutic since admission - will defer bridge therapy management to 4.) Daily PT/INR ordered. Goal INR 2.5-3.5. H/H still low. Continue to monitor closely for any s/sxs of bleeding & trend lab values. 5.) Possible drug interactions noted above - re-evaluated & updated accordingly prior to warfarin re-initiation tonight (08/19). 6.) Pharmacy will continue to follow. Please reach out with any questions. Thank you, Andrea Moraes, PharmD PGY1 Cell Inspector Pager: [phone], Ext. [phone] documented in this encounter Plan of Treatment Not on file documented as of this encounter Visit Diagnoses Not on filedocumented in this encounter Care Teams Book Trimmer Relationship Specialty Start Date End Date Reji Castro MD [address] [place] [id number] PCP - General Adolescent Medicine 10/02/22 documented as of this encounter
--- OUTSIDE RECORDS SUMMARY | 2025-05-03 08:50 | XMS_ITS | Encounter Summary ---
Author Organization [employer] Address [address] [place] [address] Care Team Providers Care School Cafeteria Cook Head Name Role Phone Reji Castro MD Primary Care Provider [phone] Encounter Details Date Type Department Care Team (Late st Contact Info) Description 08/15/2021 Transcribed Document [facility] [place] [address] [place] [address] ProviderDelvin MD [address] [place] [address] Social History Tobacco Use Types Packs/Day Years Used Date Smoking Tobacco: Never Assessed Comments Unknown Sex and Gender Information Value Date Recorded Sex Assigned at Not on file Legal Sex Female 4:32 PM CDT Gender Identity Not on file Sexual Orientation Not on file documented as of this encounter Miscellaneous Notes * Cerner Conversion Note - Delvin ProviderMD - 08/15/2021 4:18 PM CDT Pain Assessment Entered On: 08/16/2021 2:41 EDT Performed On: 08/15/2021 21:25 EDT by Pau Armstrong RN - Dung Intervention Information: acetaminophen-oxyCODONE Performed by Pau Armstrong RN - International on 08/15/2021 20:25:00 EDT acetaminophen-oxyCODONE,1Tab Oral,Pain (Moderate 4-6) Pain Assessment Pain Assessment : Follow-up assessment Pain Scale Goal : 4 Pau Armstrong RN - International - 08/16/2021 2:41 EDT documented in this encounter Plan of Treatment Not on file documented as of this encounter Visit Diagnoses Not on filedocumented in this encounter Care Teams School Cafeteria Cook Head Relationship Specialty Start Date End Date Reji Castro MD [address] [place] [id number] PCP - General Adolescent Medicine 10/02/22 documented as of this encounter
--- OUTSIDE RECORDS SUMMARY | 2025-05-03 08:50 | XMS_ITS | Encounter Summary ---
Author Organization [employer] Address [address] [place] [address] Care Team Providers Care Advertising Consultant Name Role Phone Reji Castro MD Primary Care Provider [phone] Encounter Details Date Type Department Care Team (Late st Contact Info) Description 08/14/2021 Transcribed Document [facility] [place] Family Medicine [address] [place] [address] ProviderDelvin MD [address] [place] [id number] Social History Tobacco Use Types Packs/Day Years Used Date Smoking Tobacco: Never Assessed Comments Unknown Sex and Gender Information Value Date Recorded Sex Assigned at Not on file Legal Sex Female 4:32 PM CDT Gender Identity Not on file Sexual Orientation Not on file documented as of this encounter Miscellaneous Notes * Cerner Conversion Note - Delvin Celestin MD - 08/14/2021 6:49 AM CDT Patient: IRINA TAMAYO Age: 56 years Sex: Female : 1965 Associated Diagnoses: None Author: CHELI BEASLEY MD-CAR Basic Information Primary Ink Technician: Dr. Delmar Geronimo Shift Commander: MD Nestor Subjective NAD Health Status Current medications: Home Medications (20) Active ALPRAZolam 0.5 mg oral tablet 0.5 mg = 1 Tab, PRN, Oral, TID aspirin 81 mg oral tablet, chewable 81 mg = 1 Tab, Oral, Daily bumetanide 2 mg oral tablet 2 mg = 1 Tab, Oral, BID cefdinir 300 mg oral capsule 300 mg = 1 Cap, Oral, Q12H Celexa 40 mg oral tablet 40 mg = 1 Tab, Oral, Daily Coumadin 5 mg oral tablet 5 mg = 1 Tab, Oral, Daily Dexilant 60 mg oral delayed release capsule 60 mg = 1 Cap, Oral, Daily Diovan 80 mg oral tablet 40 mg = 0.5 Tab, Oral, Daily docusate-senna 50 mg-8.6 mg oral tablet 1 Tab, Oral, BID famotidine 20 mg oral tablet 20 mg = 1 Tab, Oral, At Bedtime Farxiga 10 mg oral tablet 10 mg = 1 Tab, Oral, Daily folic acid 1 mg oral tablet 1 mg = 1 Tab, Oral, Daily levothyroxine 25 mcg (0.025 mg) oral tablet 25 mcg = 1 Tab, Oral, Daily Metoprolol Succinate ER 50 mg oral tablet, extended release 50 mg = 1 Tab, Oral, Daily olopatadine 0.2% ophthalmic solution 1 Drop, Eyes Both, Daily Percocet 10/325 oral tablet 1 Tab, PRN, Oral, Q8H potassium chloride 20 mEq oral tablet, extended release 20 mEq = 1 Tab, Oral, Daily Probiotic Formula oral capsule 1 Cap, Oral, Daily spironolactone 25 mg oral tablet 50 mg = 2 Tab, Oral, BID Toujeo SoloStar 300 units/mL subcutaneous solution 80 Units, SubCutaneous, At Bedtime , Medications (33) Active Scheduled: (16) aspirin 81 mg chew tab 81 mg 1 Tab, Oral, Daily ceFAZolin 1 Gram 50 mL, IV Piggyback, Q8HInt citalopram 20 mg tab 40 mg 2 Tab, Oral, Daily DAPTOmycin + NaCl 0.9% 50 mL 700 mg 14 mL, IV Piggyback, [id number] famotidine 20 mg tab 20 mg 1 Tab, Oral, At Bedtime ferrous gluconate 324 mg tab 324 mg 1 Tab, Oral, Daily folic acid 1 mg [...] tab 25 mg 1 Tab, Oral, QPM NaCl 0.9% 500 mL, IV Piggyback, 1-Time pantoprazole EC 40 mg tab 40 mg 1 Tab, Oral, Daily senna/docusate 8.6/50 mg tab 1 Tab, Oral, BID warfarin 3 mg tab 6 mg 2 Tab, Oral, Daily Continuous: (0) PRN: (17) acetaminophen 325 mg tab 650 mg 2 Tab, Oral, Q6H acetaminophen/oxyCODONE 325/10 mg tab 1 Tab, Oral, Q8H albuterol 0.083% inh soln 3 mL 3 [...] 12.5 Gram 25 mL, IV Push, Q15Min fentaNYL 100 mcg/2 mL inj 25 mcg [...] 10 mg 2 mL, IV Push, Q4H ondansetron 4 mg/2 mL inj 4 mg 2 mL, IV Push, Q4H promethazine 25 mg/1 mL inj 12.5 mg 0.5 mL, IV Push, Q6H traMADol 50 mg tab 50 mg 1 Tab, Oral, Q6H Problem list: Active Problems (25) AIHA (autoimmune [...] calculus Restless legs syndrome Thyroid disease Objective Intake and Output 24 hour intake: Total 1,090 ml 24 hour output: Total 1,800 ml VS/Measurements Vitals Signs (last 24 hrs) Last Charted Minimum Maximum Temp 97.6 (AUG 14 06:35) 97.6 (AUG 14 06:35) 98.7 (AUG 13 23:19) Apical HR 86 (AUG 13 21:55) 86 (AUG 13 21:55) 86 (AUG 13 21:55) Mon HR 73 (AUG 14 06:35) 73 (AUG 13 15:00) 85 (AUG 13 23:19) Resp Rate 18 (AUG 14 06:35) 16 (AUG 13 23:19) 18 (AUG 13 10:00) SBP 98 (AUG 14 06:35) 95 (AUG 14 04:30) 105 (AUG 13 15:00) DBP L 55 (AUG 14 06:35) L 50 (AUG 14 04:30) 63 (AUG 13 15:00) MAP 69 (AUG 14 05:27) 61 (AUG 14 04:30) 78 (AUG 13 15:00) SpO2 L 93 (AUG 14 06:35) L 91 (AUG 14 05:27) 98 (AUG 13 23:19) General: Alert and oriented, No acute distress. Eye: Pupils are equal, round and reactive to light, Normal conjunctiva, Vision unchanged. HENT: Normocephalic. Neck: Supple, Non-tender, No carotid bruit, No jugular venous distention. Respiratory: Lungs are clear to auscultation, Respirations are non-labored, Breath sounds are equal, Symmetrical chest wall expansion, chest wall tender to palpation over the sternum and L aspect of the chest. Cardiovascular: Normal rate, Regular rhythm, No murmur, Good pulses equal in all extremities, Normal peripheral perfusion. Gastrointestinal: Soft, Non-distended, Normal bowel sounds. Musculoskeletal: Normal range of motion, Normal strength. Integumentary: Warm, Dry, Tribune. Neurologic: Alert, Oriented. Psychiatric: Cooperative, Appropriate mood & affect. Results Review AUG 13 23:47 L 135 102 H 35 / H 114 4.2 29 H 1.80 \ SEP 22 23:47 \ L 8.1 / 5.5 206 / L 26.9 \ Cardiac Markers (Current Encounter/Past 24 Hours) CK 87 Units/Liter 08/13/2021 05:53 ProBNP 647 pg/mL MN 08/14/2021 00:14 Radiology Results (Last 48 hours) [id number] -- 08/11/2021 21:21 CR Abdomen 1 Vw Portable (08/13/2021 10:49) Result: KUBHISTORY: Nausea .COMPARISON:None.FINDINGS: A single view of the abdomen with a coned-down of the pelvisdemonstrates a nonspecific bowel gas pattern. There is a moderate amountof stool in the right colon. No definite abnormal calcifications areidentified .IMPRESSION: Nonspecific bowel gas pattern with a moderate amount ofstool in the right colon.Images reviewed, interpreted, and dictated by Dr. Keke Malhotra.Transcribed by Ottoniel Sheppard(R).I have personally viewed, interpreted and dictated the examination. Ihave read and agree with the above final transcribed report. US Abdominal RT Upper Quad (08/13/2021 12:12) Result: RIGHT UPPER QUADRANT ULTRASOUNDHISTORY: Right upper quadrant pain. Nausea.COMPARISON: None.PROCEDURE: Ultrasound images of the right upper quadrant were obtained.FINDINGS: The liver parenchyma is of proper echogenicity. There is nofocal abnormality. Liver is enlarged. The gallbladder is proper sizewith no wall thickening or pericholecystic fluid. There are nogallstones. Common duct is mildly dilated up to 8 mm. There is a 47 mmright renal cyst. Limited images of the right kidney are otherwiseunremarkable. Limited images of the pancreas are obscured by bowel gas.IMPRESSION: Hepatomegaly. Mild extrahepatic biliary ductal dilatation.MRCP recommended for further evaluation.Images reviewed, interpreted, and dictated by Dr. Keke Malhotra.Transcribed by BEATRIZ Wade have personally viewed, interpreted and dictated the examination. Ihave read and agree with the above final transcribed report. ECHO 08/12/21 Impression: Technically difficult study due to patient [...] atrial size. Elevated central venous pressure (>15mmHg). Measurements Summary: LVEDd: 5.81 cm LVESd: 4.55 cm IVSEd: 0.99 cm AO Root:1.52 cm LVPWd: 1.06 cm CHUCHO 08/12/21 Impression: Normal sized left ventricle. Mild left ventricular hypertrophy. Normal left ventricular systolic function. Normal left ventricular systolic function. Visually estimated ejection fraction 55% +/- 5%. Dilated Right ventricle. Stable mechanical valve replacement with unrestricted disc motion. Physiologic leakage volume present. Structurally normal tricuspid valve. Severe 4+ tricuspid regurgitation. Port-cath seen right atrium. No evidence of endocarditis. Impression and Plan IMPRESSION: Repeat admission for coagulase negative staph bacteremia. CHUCHO (08-12) EF 55%, Stable mechan MV, 4+ TR, no vegetation. Admitted [facility] 07/12, Negative CHUCHO, TTE for vegetation that admission Power Port placed 2016 for recurrent transfusion s/t chronic autoimmune anemia Hypotensive h.o mechanical Mitral Valve (2005). Permanent A-fib failed ablation h.o prior DCCV's Chronic Coumadin subtherapeutic INR 1.8 on arrival NICM EF 35-40% (remote ECHO) [facility]io[facility] (06/03/18) TRISTAN on CKD-Cr improved to 1.6 Cr 2.5 Baseline unknown DMII COPD PLAN; 08/14/2021 Removal L subclavian paula-cath today. Reinitiation of other HF meds/including duretics as appropriate per primary hosp service & primary clinic office coordinator. Will sign-off, call if questions. RV w/ Dr. Sawyer 1 wk post DC. 08/13/21 Resume Toprol XL 25 mg QHS. Reinitiation of other HF meds as appropriate. 08/12/21 CHUCHO to assess for endocarditis & mechanical causes of hemolysis. Obtain records from [facility]. Check haptoglobin, LDH, reticulocyte count. Continue other current CV meds. Electronically signed by Lanny [facility] Conversion Stress Analyst Cerner at 03/09/2023 8:53 PM CDT documented in this encounter Plan of Treatment Not on file documented as of this encounter Visit Diagnoses Not on filedocumented in this encounter Care Teams Advertising Consultant Relationship Specialty Start Date End Date Reji Castro MD [address] [place] [id number] PCP - General Adolescent Medicine 10/02/22 documented as of this encounter
--- OUTSIDE RECORDS SUMMARY | 2025-05-03 08:50 | XMS_ITS | Data Portability ---
Author Organization [facility], [facility] [place] [facility] Address [address] [facility] [address] [place] [address] Assessment No assessment recorded. Plan of Treatment Reminders Order Date Submit Date Provider Last Modified By Organization Details Last Modified Time Details Appointments None recorded. Lab glucose, fingersti ck, blood 2016 017 [facility], [address] [place] [address], [phone], 7 10:48:08 hemoglobi n A1C, fingersti ck 2016 017 [facility], [address] [place] [address], [address], 7 10:48:09 glucose, fingersti ck, blood 2016 017 [facility], [address] [place] [address], [address], 7 13:30:39 hemoglobi n A1C, fingersti ck 2016 017 [facility], [address] [place] [address], [address], 7 13:30:39 lipid panel, serum 2016 017 [facility], [address] [place] [address], [address], 7 15:04:21 hepatic function panel, serum 2016 017 [facility], [address] [place], [address], 7 14:57:41 microalbu min/creat inine, mass ratio, urine 2016 017 [facility], [address] [place], [address], 7 15:42:42 Referral diabetic ophthalmo logy referral - Uncontrol led type 2 diabetes evaluate for diabetic retinopat hy 2016 017 [email or web address] Jen Ortiz MD, [address] [place] [address] , [address] [place] [address], [address], 7 11:05:25 Procedures None recorded. Surgeries None recorded. Imaging None recorded. Medication Orders metformin 500 mg tablet 2016 017 [facility], [address] [place], [address], 7 10:48:16 Levemir U-100 Insulin 100 unit/mL subcutane ous solution 2016 017 [facility], [address] [place], [address], 7 10:48:15 Novolin R Regular U-100 Insulin 100 unit/mL injection solution 2016 017 [facility], [address] [place], [address], 7 11:02:41 Januvia 100 mg tablet 2016 017 [facility], [address] [place], [address], 7 10:48:15 metformin 500 mg tablet 2016 017 [facility], [address] [place], [address], 7 13:30:41 Januvia 100 mg tablet 2016 017 [facility], [address] [place], [address], 7 13:30:46 Levemir U-100 Insulin 100 unit/mL subcutane ous solution 2016 017 [email or web address] [facility], [address] [place], [address], 7 10:23:03 Patient TargetsNo targets recorded. Patient Instructions Encounter Date Encounter Id Patient Instructions Last Modified By Organization Details Last Modified Time 01/12/2017 [id number] Further increase Levemir to 30 units every a.m. and 30 units every p.m. Continue metformin 500 mg Pills twice daily with meals Continue Januvia 100 mg Dietary carbohydrate consistency and restriction and not to exceed 45 g of carbohydrate per meal and 15-30 g per snack if needed. Fasting labs today [email or web address] Not available 01/12/2017 13:30:29 05/20/2017 [id number] Further increase Levemir to 60 units every a.m. and 60 units every p.m. Increase Humulin R to 40 units 3 times daily before meals. Check blood glucose 4 times daily before meals and at bedtime. Continue metformin 500 mg Pills twice daily with meals Continue Januvia 100 mg Dietary carbohydrate consistency and restriction and not to exceed 45 g of carbohydrate per meal and 15-30 g per snack if needed. Goal blood glucose Before meals and upon awakenin-130 1-2 After meals or at bedtime: < 180 3 months average [goal A1c] < 180 Bring her meter with you next visit. [email or web address] Not available 05/20/2017 10:46:27 Reason for Referral Diabetic Ophthalmology Refer ral for Uncontrolled type 2 diabetes mellitus Uncontrolled type 2 diabetes evaluate for diabetic retinopathy Referring Physician: Donna Rendon, Endocrinology, Encounter Date: 01/12/2017 Results Created Date Observation Date Name Description Value Unit Range Abnormal Flag Note LastModifiedBy Organization Detail LastModifiedTime 05/20/20 17 05/20/2017 hemog lobin A1C, finge rstic k HbA1c% 9.8 Not Available [facility] [address] [place], [address], 05/20/2017 10:29:00 05/20/20 17 05/20/2017 hemog lobin A1C, finge rstic k [employer] Recomm ended Ranges Not Available [facility] [address] [place] [address], [address], 05/20/2017 10:29:00 05/20/20 17 05/20/2017 hemog lobin A1C, finge rstic k Normal 4.3 - 5.7 Not Available [facility] [address] [place] [address], [address], 05/20/2017 10:29:00 05/20/20 17 05/20/2017 hemog lobin A1C, finge rstic k Increased Risk 5.7 - 6.4 Not Available [facility] [address] [place] [address], [address], 05/20/2017 10:29:00 05/20/20 17 05/20/2017 hemog lobin A1C, finge rstic k Diabetic > 6.5 Not Available [facility] [address] [place] [address], [phone], 05/20/2017 10:29:00 05/20/20 17 05/20/2017 gluco se, finge rstic k, blood glucose, fingerstick 215 mg/dL 70 - 100 Not Available [facility] [address] [place] [address], [address], 05/20/2017 10:28:39 01/12/20 17 01/12/2017 hemog lobin A1C, finge rstic k HbA1c% 7.7 Not Available [facility] [address] [place] [address], [address], 01/12/2017 13:17:20 01/12/20 17 01/12/2017 hemog lobin A1C, finge rstic k [employer] Recomm ended Ranges Not Available [facility] [address] [place], [address], 01/12/2017 13:17:20 01/12/20 17 01/12/2017 hemog lobin A1C, finge rstic k Normal 4.3 - 5.7 Not Available [facility] [address] [place], [address], 01/12/2017 13:17:20 01/12/20 17 01/12/2017 hemog lobin A1C, finge rstic k Increased Risk 5.7 - 6.4 Not Available [facility] [address] [place], [address], 01/12/2017 13:17:20 01/12/20 17 01/12/2017 hemog lobin A1C, finge rstic k Diabetic > 6.5 Not Available [facility] [address] [place] [address], [address], 01/12/2017 13:17:20 01/12/20 17 01/12/2017 gluco se, finge rstic k, blood glucose, fingerstick 211 mg/dL 70 - 100 Not Available [facility] [address] [place], [address], 01/12/2017 13:17:00 01/12/20 17 01/12/2017 hepat ic funct ion panel , serum AST 43 U/L 0-32 high Not Available [facility] [address] [place] [address], [address], 01/12/2017 15:04:22 01/12/20 17 01/12/2017 hepat ic funct ion panel , serum ALT 39 U/L 0-33 high Not Available [facility] [address] [place] [address], [address], 01/12/2017 15:04:22 01/12/20 17 01/12/2017 hepat ic funct ion panel , serum alkaline phosphatase 77 U/L 35-105 normal Not Available [facility] [address] [place] [address], [address], 01/12/2017 15:04:22 01/12/20 17 01/12/2017 hepat ic funct ion panel , serum total protein 8.5 g/dL 6.4-8. 3 high Not Available [facility] [address] [place] [address], [address], 01/12/2017 15:04:22 01/12/20 17 01/12/2017 hepat ic funct ion panel , serum albumin 5.0 g/dL 3.5-5. 2 normal Not Available [facility] [address] [place] [address], [address], 01/12/2017 15:04:22 01/12/20 17 01/12/2017 hepat ic funct ion panel , serum bilirubin, total 0.6 mg/dL 0.1-1. 2 normal Not Available [facility] [address] [place] [address], [address], 01/12/2017 15:04:22 01/12/20 17 01/12/2017 hepat ic funct ion panel , serum bilirubin, direct <0.2 mg/dL 0.0-0. 3 normal Not Available [facility] [address] [place] [address], [address], 01/12/2017 15:04:22 01/12/20 17 01/12/2017 hepat ic funct ion panel , serum bilirubin, indirect - mg/dL _calc 0.0-1. 0 abnormal Unabl e to calcu late Indir ect Bilir ubin. Not Available [facility] [place], [address], 01/12/2017 15:04:22 01/12/20 17 01/12/2017 lipid panel , serum HDL cholesterol 33 mg/dL 66-242 low Not Available [facility] [place], [address], 01/12/2017 15:04:21 01/12/20 17 01/12/2017 lipid panel , serum triglyceride s 317 mg/dL 0-149 high TRIGL YCERI DE RANGE S ERIC L: < 150 BORDE RLINE HIGH: 150 - 199 HIGH: 200 - 499 VERY HIGH: > OR = 500 Not Available [facility] [address] [place] [address], [address], 01/12/2017 15:04:21 01/12/20 17 01/12/2017 lipid panel , serum cholesterol 167 mg/dL 0-199 normal DEMARCUS STERO L (TOTA L) RANGE S SENIA ABLE: < 200 BORDE RLINE : 200 - 239 HIGHE R RISK: > 239 Not Available [facility] [address] [place] [address], [address], 01/12/2017 15:04:21 01/12/20 17 01/12/2017 lipid panel , serum LDL cholesterol 71 mg/dL _calc 0-99 normal LDL DEMARCUS STERO L RANGE S OPTIM AL: < 100 NEAR/ ABOVE OPTIM AL: 100 - 129 BORDE RLINE HIGH: 130 - 159 HIGH: 160 - 189 VERY HIGH: > OR = 190 Not Available [facility] [address] [place] [address], [address], 01/12/2017 15:04:21 01/12/20 17 01/12/2017 micro album in/cr eatin ine, mass ratio , urine microalbumin , random <12 mg/L 0-19 normal Not Available [facility] [address] [place] [address], [address], 01/12/2017 15:42:42 01/12/20 17 01/12/2017 micro album in/cr eatin ine, mass ratio , urine creatinine,u r,random 18.24 mg/dL normal NO ERIC L RANGE ESTAB LISHE D FOR RANDO M URINE . Not Available [facility] [address] [place] [address], [address], 01/12/2017 15:42:42 01/12/20 17 01/12/2017 micro album in/cr eatin ine, mass ratio , urine MA/creatinin e ratio - mcg/m g <30 abnormal Urine micro album in is less than 12 mg/L. Calcu latio n of micro album in/cr eatin ine ratio is inval id. Micro album in/Cr eatin ine Ratio is used to class warren patie nts as being ERIC L (<30 MCG/M G Creat inine ), havin g Micro album inuri a (30-3 00 MCG/M G Creat inine ), or havin g clini kori album inura (>300 MCG/M G Creat inine ). The class ifica tion of a patie nt shoul d be based upon at least 2 of 3 abnor mal resul ts on speci mens colle cted withi n a 3-6 month time frame . REFER ENCE: Megan garsia [facility] ment, Diabe tic Nephr opath y,[facility], [facility] pplem ent 1,s24 -s27, 1996. Not Available [facility] [address] [facility], [place], [address], 01/12/2017 15:42:42 03/10/20 24 03/10/2024 XR, shoul sheldon, 2 or more view [place] [facility] [address] [place] [address] Patirichard t Name: IRINA hall : [address] Patien t Orderi ng Provid er: TOMMIE DA SILVA EXAM DATE: 2023 EXAM: XR RT SHOULD ER COMPLE TE RADIOG RAPHIC VIEWS: 3 COMPAR DONALD: None. HISTOR Y: Right should er pain. FINDIN GS: The bones of the should er are normal in alignm ent. There is no eviden ce of fractu re. There is mild degene rative change s at the acromi oclavi cular joint and along the glenoh umeral joint. The acromi oclavi cular and coraco clavic ular spacin g is normal . The visual ized right ribs and right lung appear s normal . An intrav enous port projec ts over the right chest wall and extend s along the course of the right jugula r vein and SVC. IMPRES BARRY: 1. There are mild degene rative change s in the right should er. Interp reted By: Genevieve gonzales MD Electr onical ly Signed By: Genevivee gonzales MD on 11:27 AM [email or web address] [facility] [place] [address], [place], [address], 03/13/2024 12:32:32 03/10/20 24 03/10/2024 XR, elbow , 2 view [facility] [address] [place] [address] Sonia t Name: IRINA hall : [address] S[address] Orderi ng Provid er: TOMMIE FERNDALE EXAM DATE: 2023 EXAM: XR RT ELBOW, AP/LAT HISTOR Y: Right elbow pain COMPAR DONALD: None. FINDIN GS: The bones of the right elbow are normal in alignm ent. There is no eviden ce of fractu re. There are mild degene rative change s. There is mild margin al spurri ng. IMPRES BARRY: 1. There are mild degene rative change s in the right elbow. Interp reted By: Genevieve gonzales MD Electr onical ly Signed By: Genevieve gonzales MD on 11:28 AM [email or web address] [facility] [place] [address], [place], [address], 03/13/2024 12:32:33 03/10/20 24 03/10/2024 XR, wrist , 2 view [facility] [address] [place] [address] Sonia t Name: IRINA hall : [address] Orderi ng Provid er: TOMMIE DA SILVA EXAM DATE: 2023 EXAM: XR RT WRIST, AP/LAT HISTOR Y: Right wrist pain COMPAR DONALD: None. FINDIN GS: The bones of the right wrist are normal in alignm ent. There is no eviden ce of fractu re. There are mild degene rative change s. There is mild margin al spurri ng the first carpom etacar pal joint, trisca phe joint and radioc arpal joint. IMPRES BARRY: 1. There are mild degene rative change s in the right wrist. Interp reted By: Genevieve gonzales MD Electr onical ly Signed By: Genevieve gonzales MD on 024 11:28 AM [email or web address] [facility] [place] [address] , [place], [address], 03/13/2024 12:32:33 Result Notes None recorded. 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 410859282 Completed 201501/21/2017 From Automate d Load;Pro vider: Uli Fox;Sta tus: Active JEN ORTIZ MD [address] [place] [address], [address] , [facility] 7 13:20:24 Disorder of nervous system due to type 2 diabetes mellitus 061194813 Active 2015 From Automate d Load;Pro vider: [place], Walaa;St atus: Active Not Available [facility] 6 08:01:51 Hypothyr oidism 54468048 Active 2015 From Automate [employer] Load;Pro vider: [place], Walaa;St atus: Active Not Available [facility] 6 08:01:51 Hyperlip idemia 93805398 Active 2015 From Automate d Load;Pro vider: [place], Walaa;St atus: Active Not Available [facility] 6 08:01:51 Problem Notes None recorded. 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 Procedure Notes None recorded. Medical Equipment None Reported. Allergies Allergen ID Allergen Name Allergen Category Reaction Reaction Severity Criticality Documentation Date Start Date Code Code System Note Provider Name and Address Organization Details Recorded Time 193367 codeine medicatio n other Not available Not available 10/16/20162013 2670 RxNorm React ion: OTHER ; Comme nt: Heada junior;C reate d By: Charles barrera;Cr eated Date: 2013 2:31: 40 PM; Not Available [facility] 6 03:13:58 [id number] Rocephin medicatio n Not available Not available Not available 10/16/20162013 9449 RxNorm Comme nt: Creat ed By: Charles barrera;Cr eated Date: 2013 2:32: 27 PM; Not Available [facility] 6 03:13:58 [id number] Buprenex medicatio n vomiting Not available Not available 10/16/20162013 63257 0 RxNorm React ion: VOMIT ING; Comme nt: Creat ed By: Charles barrera;Cr eated Date: 2013 2:30: 33 PM; Not Available [facility] 6 05:59:46 [id number] Levaquin medicatio n Not available Not available Not available 10/16/20162013 65188 2 RxNorm Comme nt: INR;C reate d By: Charles barrera;Cr eated Date: 2013 2:32: 11 PM; Not Available [facility] 6 09:05:33 Medications Name Sig Start Date Stop Date Status Note LastModified by Organization Details LastModified Time accu-chek guide me w/device USE DIRECTED active Not Available Not Available No t Available furosemid e 40 mg tablet Daily active Not Available Not Available Not Available metolazon e 2.5 mg tablet Daily active Not Available Not Available Not Available fluconazo le 100 mg tablet active Not Available Not Available Not Available metformin 500 mg tablet TAKE (2) TABLETS BY MOUTH TWICE DAILY active Not Available Not Available No t Available carvedilo l 6.25 mg tablet Daily 05/20 completed Not Available Not Available Not Available ipratropi um 0.5 mg-albute rol 3 mg (2.5 mg base)/3 mL nebulizat ion soln INHALE 1 VIAL VIA NEBULIZE R EVERY 3 HOURS NEEDED FOR SHORTNES S OF BREATH UNTIL BREATHIN G RETURNS TO [facility] PEAK/NICOLE W PARAMETE RS. active Not Available Not Available No t Available citalopra m 40 mg tablet TAKE 1 TABLET BY MOUTH ONCE DAILY. active Not Available Not Available No t Available azithromy senia 250 mg tablet TAKE 1 TABLET BY MOUTH ONCE DAILY FOR COPD. START ON 01/16 active Not Available Not Available No t Available danazol 200 mg capsule active Not Available Not Available Not Available metoprolo l succinate ER 200 mg tablet,ex tended release 24 hr TAKE 1 TABLET BY MOUTH ONCE A DAY FOR BLOOD PRESSURE active Not Available Not Available No t Available prednison e 20 mg tablet 2 tablet daily active Not Available Not Available No t Available metoprolo l succinate ER 100 mg tablet,ex tended release 24 hr TAKE (1) TABLET BY MOUTH TWICE A DAY. active Not Available Not Available No t Available prednison e 5 mg tablet 05/20 completed Not Available Not Available Not Available Accu-Chek Softclix Lancets USE DIRECTED TWICE DAILY active Not Available Not Available No t Available digoxin 250 mcg (0.25 mg) tablet Daily 01/12 completed Duration : 10 days;Moe quency: daily;Me dication Descript ion: digoxin; Dosage:1 ; Route:or al; refills: 0; Quantity :30 tablet Not Available Not Available Not Available sulfameth oxazole 800 mg-trimet hoprim 160 mg tablet 05/20 completed Not Available Not Available Not Available omeprazol e 40 mg capsule,d elayed release TAKE ONE CAPSULE BY MOUTH 2 TIMES DAILY. active Not Available Not Available No t Available spironola ctone 25 mg tablet TAKE ONE TABLET BY MOUTH 2 TIMES DAILY FOR EDEMA active Not Available Not Available No t Available levothyro xine 25 mcg tablet TAKE 1 TABLET BY MOUTH ONCE A DAY. active Not Available Not Available No t Available bisoprolo l fumarate 10 mg tablet 05/20 completed Not Available Not Available Not Available warfarin 4 mg tablet TAKE 1 TABLET BY MOUTH ONCE A DAY. active Not Available Not Available No t Available alprazola m 0.5 mg tablet TAKE (1) TABLET BY MOUTH THREE TIMES DAILY. active Not Available Not Available No t Available potassium chloride ER 20 mEq tablet,ex tended release(p art/cryst ) TAKE (1) TABLET BY MOUTH TWICE A DAY. active Not Available Not Available No t Available torsemide 100 mg tablet active Not Available Not Available Not Available Novolin R Regular U-100 Insulin 100 unit/mL injection solution 40 units ac meals . tid. To be taken 20 30 minutes before meals. active Not Available Not Available No t Available oxycodone -acetamin ophen 10 mg-325 mg tablet TAKE (1) TABLET BY MOUTH FOUR TIMES DAILY. FILL 02/28 active Not Available Not Available No t Available furosemid e 80 mg tablet active Not Available Not Available Not Available oseltamiv ir 75 mg capsule TAKE 1 CAPSULE BY MOUTH EVERY 12 HOURS FOR 5 DAYS. active Not Available Not Available No t Available dexametha sone 4 mg tablet TAKE (1) TABLET BY MOUTH TWICE A DAY. active Not Available Not Available No t Available lidocaine 5 % topical patch APPLY ONE PATCH-LE AVE ON FOR 12 HOURS & OFF FOR 12 HOURS. active Not Available Not Available No t Available warfarin 5 mg tablet TAKE 1/2 TABLET BY MOUTH ON WEDNESDAY AND WEDNESDAY AND 1 TABLET ALL OTHER DAYS active Not Available Not Available No t Available budesonid e 0.5 mg/2 mL suspensio n for nebulizat ion USE 1 VIAL IN NEBULIZE R TWICE DAILY active Not Available Not Available No t Available diltiazem CD 120 mg capsule,e xtended release 24 hr active Not Available Not Available Not Available bumetanid e 1 mg tablet TAKE (1) TABLET BY MOUTH TWICE A DAY. active Not Available Not Available No t Available aspirin 81 mg tablet Daily active Duration : 30 days;Moe quency: daily;Me dication Descript ion: aspirin; Dosage:1 ; Route:or al; refills: 0; Quantity :30 tablet Not Available Not Available Not Available digoxin 125 mcg (0.125 mg) tablet active Not Available Not Available Not Available ergocalci ferol (vitamin D2) 1,250 mcg (50,000 unit) capsule TAKE 1 CAPSULE BY MOUTH ONCE MONTHLY active Not Available Not Available No t Available diazepam 10 mg tablet prn 05/20 completed Not Available Not Available Not Available levofloxa senia 500 mg tablet TAKE 1 TABLET BY MOUTH ONCE A DAY. active Not Available Not Available No t Available fluocinon emy 0.05 % topical cream active Not Available Not Available Not Available ondansetr on 4 mg disintegr ating tablet active Not Available Not Available Not Available cefdinir 300 mg capsule TAKE 1 CAPSULE BY MOUTH EVERY 12 HOURS active Not Available Not Available No t Available calcitrio l 0.25 mcg capsule TAKE (1) CAPSULE BY MOUTH ONCE A DAY. active Not Available Not Available No t Available spironola ctone 50 mg tablet active Not Available Not Available No t Available diazepam 5 mg tablet TAKE ONE TABLET BY MOUTH AT BEDTIME. active Not Available Not Available No t Available enoxapari n 100 mg/mL subcutane ous syringe INJECT 0.9ML(90 MG) SUB-Q EVERY 12 HOURS FOR INR FOR 8 DAYS active Not Available Not Available No t Available amoxicill in-potass ium clavulana te 1,000 mg-62.5 mg tablet,ex t.rel 12hr active Not Available Not Available Not Available rosuvasta tin 10 mg tablet Twice weekly 05/20 completed Not Available Not Available Not Available nitrofura ntoin monohydra te/macroc rystals 100 mg capsule TAKE (1) CAPSULE BY MOUTH TWICE DAILY. active Not Available Not Available No t Available duloxetin e 30 mg capsule,d elayed release TAKE 1 CAPSULE BY MOUTH AT BEDTIME active Not Available Not Available No t Available duloxetin e 60 mg capsule,d elayed release TAKE (1) CAPSULE BY MOUTH ONCE A DAY. active Not Available Not Available No t Available Calcium Citrate + active Medicati on Descript ion: calcium citrate; refills: 0 Not Available Not Available Not Available Levemir U-100 Insulin 100 unit/mL subcutane ous solution 60 units every a.m. and 60 units every bedtime active Not Available Not Available No t Available Januvia 100 mg tablet Daily active Not Available Not Available Not Available diclofena c 1 % topical gel APPLY 2 GRAMS TO THE AFFECTED AREA(S) BY TOPICAL ROUTE 4 TIMES PER DAY active Not Available Not Available No t Available febuxosta t 40 mg tablet TAKE 1 TABLET BY MOUTH ONCE DAILY. active Not Available Not Available No t Available Bystolic 20 mg tablet one daily active Not Available Not Available No t Available Colcrys 0.6 mg tablet prn 05/20 completed Not Available Not Available Not Available Probiotic Formula 10 billion cell(2 billion ea) capsule Daily active Frequenc y: daily;Me dication Descript ion: bifidoba cterium- lactobac illus; Dosage:1 ; Route:or al; refills: 0 Not Available Not Available Not Available Dexilant 60 mg capsule, delayed release Daily active Not Available Not Available Not Available Dexilant 30 mg capsule, delayed release TAKE (1) CAPSULE BY MOUTH ONCE A DAY. active Not Available Not Available No t Available BD Ultra-Fin e Mariely Pen Needle 32 gauge x 5/32 USE FOUR TIMES A DAY active Not Available Not Available No t Available BD Insulin Syringe Ultra-Fin e 1 mL 31 gauge x 5/16 active Not Available Not Available Not Available BD Insulin Syringe Ultra-Fin e 0.3 mL 31 gauge x 5/16 Daily 2015 active Instruct ions: 1 mL insulin syringe daily;Fr equency: daily;Me dication Descript ion: Supplies ; Dosage:1 ; refills: 2; Quantity :100 Not Available Not Available Not Available cyclophos phamide 50 mg capsule 05/20 completed Not Available Not Available Not Available Soliqua 100/33 100 unit-33 mcg/mL subcutane ous insulin pen INJECT 50 UNITS UNDER SKIN EVERY MORNING active Not Available Not Available No t Available Accu-Chek Guide test strips USE DIRECTED TWICE DAILY active Not Available Not Available No t Available Vitals Date Recorded Body weight Body height Body mass index (BMI) Heart rate Systolic blood pressure Diastolic blood pressure Provider Name and Address Organization Details Last Updated DateTime 7 81853.3 g 162.56 cm 29.4 kg/m2 92 /min 122 mm[Hg] 62 mm[Hg] [facility] 7 13:11:05 Date Recorded Body height Provider Name an d Address Organization Details Last Updated DateTime 01/21/2017 162.56 cm Adria Hoyt [facility] 01/21/2017 12:52:09 Date Recorded Body height Body mass index (BMI) Body weight Heart rate Systolic blood pressure Diastolic blood pressure Provider Name and Address Organization Details Last Updated DateTime 7 162.56 cm 30.2 kg/m2 64969.2 6 g 71 /min 100 mm[Hg] 68 mm[Hg] [facility] 7 10:22:26 Social History None recorded. Functional Status None recorded. Mental Status None recorded. Family History Relationship Description Onset Age of this Age Resolved Age Notes LastModified by Organization Details LastModified Time Mother Cataract [email or web address] Not availab le 01/21/2017 12:54:54 Mother Diabetes mellitus [email or web address] Not available 01/21 12:55:12 Mother Lazy eye [email or web address] Not availab le 01/21/2017 12:55:30 Father Cataract [email or web address] Not availab le 01/21/2017 12:54:54 Father Diabetes mellitus Not available 01/21 12:55:12 Brother Diabetes mellitus [email or web address] Not available 01/21 12:55:12 Brother Lazy eye [email or web address] Not availa ble 01/21/2017 12:55:30 Brother Legal blindness [email or web address] Not available 01/21 12:55:38 Sister Diabetes mellitus [email or web address] Not available 01/21 12:55:12 Sister Lazy eye Not availab le 01/21/2017 12:55:30 Medical History Condition Response Heart Problems Y Lazy Eye Y Diabetes Y Hypertension Y Gynecological HistoryNo gynecological history recorded. Obstetrics History GPAL:G 0 P 0 0 0 0 Past Encounters Encounter ID Performer Location Encounter Start Date Encounter Closed Date Diagnosis/Indication Diagnosis SNOMED-CT Code Diagnosis ICD10 Code Diagnosis Note [id number] DONNA RENDON MD ENDOCRINO [facility] [place] [id number] 01/12/2017 12:52:33 01/15/2017 11:05:25 Uncontrolled type 2 diabetes mellitus 737638623 E11.65 A1c in the office today elevated at 7.7% down from 8.9 % [ Recently had blood transfusio n which questioned the accuracy of her A1c] Fasting point-of-c are blood glucose of 211 Goal A1c of < 7 % Hyperglyce ellie is due to dietary indiscreti on, fasting hyperglyce ellie and insulin resistance .Increase and a split Levemir to 30 units every a.m. and 30 units every bedtime. Continue metformin and [facility] Creatinine of 0.84 GFR of 80 Referral to ophthalmol [place] for diabetic dilated eye exam.Fasti ng lipid profile, liver function test and urinary ACR today [id number] JEN ORTIZ MD OPHTHALMO [facility] [address] [place] [address] 01/21/2017 12:38:42 01/22/2017 08:17:23 Uncontrolled type 2 diabetes mellitus [id number] E11.65 I discussed diabetes with this patient. I discussed the importance of sugar control for reducing risk of diabetic complicati ons in the eyes. I recommened they follow up with their PCP/endocr inologist for continue surgar evaluation /managemen t. Also discussed importance of cardiovasc ular risk reduction. Call with changing/f luxuating vision. Amblyopia [id number] H53. 032 dense amblyopia os. strabismic [id number] [facility] [place] [address] 02/22/2017 21:30:37 02/22/2017 21:30:37 [id number] DONNA RENDON MD ENDOCRINO [facility] [address] [address] 05/20/2017 09:55:29 05/20/2017 13:35:50 Uncontrolled type 2 diabetes mellitus 802299244 E11.65 A1c in the office today elevated at 9.8% from 7.7% [ A1c would not be very accurate in the fact that she has autoimmune hemolytic anemia and she is currently on chronic blood transfusio n last given in March 2017] 4 months ago. Fasting point-of-c are blood glucose of 215 Goal A1c of < 7 % Hyperglyce ellie is due to High-dose glucocorti coid therapy i.e. prednisone 40 mg every day for autoimmune hemolytic anemia. dietary indiscreti on, fasting hyperglyce ellie and insulin resistance .Increase Levemir to 60 units every a.m. and 60 units every bedtime. Increase Humulin R to 40 units 3 times daily 30 minutes before meals.Bloo d glucose 4 times daily before meals and at bedtime Continue metformin and [facility] Creatinine of 0.84 GFR of 80Recently seen by her ophthalmol ogist at [facility].Up-to -date with diabetic foot exam with bilateral intact 10 g Monofilame nt testing. Once again I agree counseled about the importance of bringing her meter with her for self-monit oring blood glucose In view of the incomplete accuracy of her A1c Total time spent face-to-fa ce with patient is 25 minutes with > 50 % spent on counseling on deleteriou s consequenc es of uncontroll ed type 2 diabetes, importance of dietary carbohydra te consistenc y and restrictio n and insulin regimen changes, Glucocorti coid Induced hyperglyce ellie.. [id number] TOMMIE DA SILVA PA-C [facility] [address] [address] 03/10/2024 10:43:50 03/10/2024 12:53:46 Carpal tunnel syndrome of right wrist [id number] 18245 G56.01 Assessment : Adhesive capsulitis of the right shoulder and right-side d carpal tunnel syndrome. Plan: Both these can be managed conservati vely. Adhesive capsulitis should resolve on its own with time. Steroid injections are an option in the future under x-ray guidance, if she is interested or becomes painful enough to need it. I believe the wrist symptoms are likely carpal tunnel and should improve with rest and activity modificati on. Overall, I do not believe she is harming her right upper extremity with continued use. Adhesive c apsulitis of right shoulder [id number] 82672 M75.01 Health Concerns Section Related Observation LastModified by Organization Detai ls LastModified Time None Recorded Concern Status LastModified by Organization Details LastModified Time None Recorded Advance Directives Directive None Recorded Payers Insurance Date Sequence Insurance Name Policy Number Policy Edwards Covered Member ID Edwards Member ID Guarantor Name 06/01/2024 1 [place]MEDICARE REPLACEMENT HMO) [id number] Irina Costa [id number] Irina Costa 06/02/2024 2 MEDICAID-[facility]FS/[facility] L Irina Costa [id number] Irina Costa 01/26/2019 1 *SELF PAY* Geovanna Costa 03/10/2024 1 [place] Irina Costa [id number] Irina Costa Notes Date Note Type Note Provider Name and Address Organization Details Recorded Time 01/12/2017 text/html 51-year-old female patient with a past medial history as detailed below significant for hypertension, hyperlipidemia, primary hypothyroidism above abnormal replacement therapy and type 2 diabetes on oral medications Who is seen in the office today for a followup visits. Currently takes Levemir 50 units every bedtime. No hopitalization for hypo or hyperglycemia since office visit. Januvia 100 mg every a.m. Metformin 500 mg 2 pills twice thomas with meals Glucose log review: no Hypoglycemia: none DONNA RENDON MD [address] [place] [address], [phone], [facility] 01/12/2017 13:35:43 01/21/2017 text/html dec vision odno slltos has not changeds in a long time.reviewed diabetic labs. JEN ORTIZ MD [address] [place] [address], [phone], [facility] 01/21/2017 14:06:12 05/20/2017 text/html 51-year-old female patient with a past medial history as detailed below significant for hypertension, hyperlipidemia, primary hypothyroidism above abnormal replacement therapy and type 2 diabetes on oral medications Who is seen in the office today for a followup visits Uncontrolled insulin requiring type 2 diabetes. She is currently on prednisone 40 mg every day. Autoimmune hemolytic anemia. Currently takes Levemir 50 units every a.m. and 50 units every bedtimeHumulin R 40 units 3 times a day No hopitalization for hypo or hyperglycemia since office visit. Januvia 100 mg every a.m. Metformin 500 mg 2 pills twice thomas with meals Glucose log review: no Hypoglycemia: none DONNA RENDON MD [address] [place] [address], [phone], [facility] 05/20/2017 10:48:20 03/10/2024 text/html HAND DOMINANCE: LeftWHAT: Right Elbow.WHEN: 11/2023HOW: Pt. states she was given medicine she is allergic to and believes the reaction from the medicine is what caused her onset of pain.SYMPTOMS:Pain is constant dull ache in nature. Sharp pain with movement.The patient has numbness or tinglingThey have popping and clickingThey are able to sleep comfortably with this injury.Their pain is made better with resting the limbTheir pain is exacerbated by putting weight on and moving the affected limbOverall, the patient would say that their pain is not well-controlled at this timePAIN: 10X-RAY: LCMRI:PT: noINJECTION: no TOMMIE DA SILVA PA-C [address] [place] [address], [phone], [facility] 2024 15:42:34 OBGyn Episode No OBEpisode recorded.
--- OUTSIDE RECORDS SUMMARY | 2025-05-03 08:50 | XMS_ITS | Encounter Summary ---
Author Organization [employer] Address [address] [place] [address] Care Team Providers Care Supervisor Furnace Room Name Role Phone Reji Castro MD Primary Care Provider [phone] Encounter Details Date Type Department Care Team (Late st Contact Info) Description 08/11/2021 Transcribed Document [facility] [place] Family Medicine [address] [place] [address] ProviderDelvin MD [facility] [place] [address] Social History Tobacco Use Types Packs/Day Years Used Date Smoking Tobacco: Never Assessed Comments Unknown Sex and Gender Information Value Date Recorded Sex Assigned at Not on file Legal Sex Female 4:32 PM CDT Gender Identity Not on file Sexual Orientation Not on file documented as of this encounter Miscellaneous Notes * Cerner Conversion Note - Delvin ProviderMD - 08/11/2021 10:44 PM CDT ED Discharge Entered On: 08/11/2021 22:44 EDT Performed On: 08/11/2021 22:44 EDT by Natali Brock RN-PATIENT CARE BEDSIDE NON-EXEMPT Discharge Process Patient Disposition : Admit/Observe Personal Belongings With Patient : Yes Teaching Evaluation : Verbalizes understanding IV Discontinued : No Natali Brock RN-PATIENT CARE BEDSIDE NON-EXEMPT - 08/11/2021 22:44 EDT Admission, ED Nurse Report Accepted By : JEREMIAH Robbins Nurse Report Acceptance Time : 08/11/2021 22:30 EDT `Nurse Report (Hand Off) : Called Natali Brock RN-PATIENT CARE BEDSIDE NON-EXEMPT - 08/11/2021 22:44 EDT Electronically signed by Loki Ca Conversion Organizational Effectiveness Director Cerner at 03/09/2023 8:55 PM CDT documented in this encounter Plan of Treatment Not on file documented as of this encounter Visit Diagnoses Not on filedocumented in this encounter Care Teams Supervisor Furnace Room Relationship Specialty Start Date End Date Reji Castro MD [address] [place] [id number] PCP - General Adolescent Medicine 10/02/22 documented as of this encounter
--- OUTSIDE RECORDS SUMMARY | 2025-05-03 08:50 | XMS_ITS | Encounter Summary ---
Author Organization [employer] Address [address] [place] [address] Care Team Providers Care Brand Analyst Name Role Phone Reji Castro MD Primary Care Provider [phone] Encounter Details Date Type Department Care Team (Late st Contact Info) Description 08/11/2021 Transcribed Document [facility] [place] [address] [place] [address] ProviderDelvin MD [address] [place] [address] Social History Tobacco Use Types Packs/Day Years [...] ProviderMD - 08/11/2021 4:16 PM CDT ED Assessment Entered On: 08/11/2021 18:48 EDT Performed On: 08/11/2021 18:46 EDT by MARIPOSA JACQUES RN ED Quick Look Assessment Level of Consciousness : Alert, Awake Affect/Behavior : Appropriate, Calm, Cooperative Orientation : Oriented x 4 Skin Color : Other: normal Skin Temperature : Warm Skin Description : Dry MARIPOSA JACQUES RN - 08/11/2021 18:46 EDT ED General-Functional Assess Information Obtained From : Patient Communication Barrier : None Primary Language : Serbian Any Spiritual/Cultural Needs or Requests : No Currently in Unsafe Situation : No MARIPOSA JACQUES RN - 08/11/2021 18:46 EDT Social Habits Smoking Status : Former smoker, quit more than 30 days ago Smokeless Tobacco Status : Never Desires Tobacco Cessation Calc : 0 MARIPOSA JACQUES RN - 08/11/2021 18:46 EDT Social History (As Of: 08/11/2021 18:48:53 EDT) Tobacco: Use in Last 12 Months: No. Smoking Status Former smoker. Years of Use: 30. Last Used: quit 2005. (Last Updated: 12/18/2013 14:52:21 EST by LIBERTY MONZON RN) Cardiovascular ASMT, ED Cardiovascular Assessment WDL : WDL with exceptions (Comment: pt comes in after being called with previous positive blood cultures indicating staph, sent by PCP for inpatient treatment. believes the staph is coming from her port, port appears normal at this time [MARIPOSA JACQUES RN - 08/11/2021 18:46 EDT] ) MARIPOSA JACQUES RN - 08/11/2021 18:46 EDT Respiratory Respiratory Assessment WDL : WDMARIPOSA JUSTICE RN - 08/11/2021 18:46 EDT Oxygen Therapy Oxygen Therapy Mode : Room air MARIPOSA JACQUES RN - 08/11/2021 18:46 EDT Gastrointestinal ED Gastrointestinal Assessment WDL : WD MARIPOSA JACQUES RN - 08/11/2021 18:46 EDT Neurologic ASMT, ED Neurologic Assessment WDL : [facility] MARIPOSA JACQUES RN - 08/11/2021 18:46 EDT Pain Assessment Pain Assessment : Initial assessment Pain Scale Used : 0-10 Scale MARIPOSA JACQUES RN - 08/11/2021 18:46 EDT Pain Scale Intensity : 5 MARIPOSA JACQUES RN - 08/11/2021 18:46 EDT Image 4 - Images currently included in the form version of this document have not been included in the text rendition version of the form. documented in this encounter Plan of Treatment Not on file documented as of this encounter Visit Diagnoses Not on filedocumented in this encounter Care Teams Brand Analyst Relationship Specialty Start Date End Date Reji Castro MD [address] [place] [id number] PCP - General Adolescent Medicine 10/02/22 documented as of this encounter
--- OUTSIDE RECORDS SUMMARY | 2025-05-03 08:50 | XMS_ITS | Encounter Summary ---
Author Organization [employer] Address [address] [place] [address] Care Team Providers Care Battery Container Tester Aluminum Name Role Phone Reji Castro MD Primary Care Provider [phone] Encounter Details Date Type Department Care Team (Late st Contact Info) Description 08/19/2021 Transcribed Document [facility] [place] [facility] [place] [address] ProviderDelvin MD [place] [address] Social History Tobacco Use Types Packs/Day Years Used Date Smoking Tobacco: Never Assessed Comments Unknown Sex and Gender Information Value Date Recorded Sex Assigned at Not on file Legal Sex Female 4:32 PM CDT Gender Identity Not on file Sexual Orientation Not on file documented as of this encounter Miscellaneous Notes * Cerner Conversion Note - Delvin Celestin MD - 08/19/2021 2:23 PM CDT Patient: IRINA TAMAYO Age: 56 [...] her port could not be accessed. Her fitness coach aspirated fluid from the port that was evidently purulent. I have not yet been able to track down that culture. After the aspiration she developed fever to 103, severe CHEUNG, myalgias and arthralgias. She was admitted to [facility]. She was in the hospital for 10 [...] subsequently contacted and told to report to [facility] because she had + blood cutures concerning for an infected portacath +/- PVE. I contacted the micro lab at [facility] and was told that she did [...] be able to place new port 08/19 08/17 afebrile, no new + cultures, reports nausea after daptomycin, remains on heparin 08/18 afebrile, alert, no new c/o; scheduled to have new portacath placed tomorrow 08/19 afebrile, portacath placed this am, she has been told she will need to stay until coumadin is therapeutic PAST MEDICAL HISTORY CKD followed by Dr Umana Rheumatic heart disease Bioprosthetic MV replacement 2005 COPD HTN Nephrolithiasis HTN Ovarian Cyst SURGICAL HISTORY MVR 2005 Multiple ureteral surgeries including stent left ureter Sigmoid colon resection Jaw surgery Portacath BTL Abdominal hernia repair SH quit smoking 2005, 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, 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 Review of Systems ROS reviewed as documented in chart Health Status Current medications: (Selected) Inpatient Medications Ordered ALPRAZolam: 0.5 mg, Oral, TID, PRN: Anxiety Bumex: 2 mg, Oral, BID CeleXA: 40 mg, Oral, Daily Dextrose 50% injection: 12.5 Gram, IV Push, Q15Min, PRN: Other (See Comment) Dextrose 50% injection: 25 Gram, IV Push, Q15Min, PRN: Other (See Comment) Dextrose 50% injection: 25 Gram, IV Push, Q15Min, PRN: Other (See Comment) Dextrose 50% injection: 25 Gram, IV Push, Q15Min, PRN: Other (See Comment) EPINEPHrine: 1 mg, IntraMuscular, On-CALL, PRN: Anaphylaxis Ferrlecit + Sodium Chloride 0.9% intravenous solution 230 mL: 250 mg, 20 mL, 125 mL/Hr, IV Piggyback, Daily Milk of Magnesia 8% oral suspension: 30 mL, Oral, Daily, PRN: Constipation Percocet 10/325: 1 Tab, Oral, Q6H, PRN: Pain (Moderate 4-6) Phenergan: 12.5 mg, IV Push, Q6H, PRN: Nausea Toprol-XL: 25 mg, Oral, QPM acetaminophen: 650 mg, Oral, Q6H, PRN: Pain (Mild 1-3) albuterol 2.5 mg/3 mL (0.083%) inhalation solution: 3 mL, Nebulized Inhalation, RT_Q4H, PRN: Shortness of Breath aspirin: 81 mg, Oral, Daily ceFAZolin + Sodium Chloride 0.9% intravenous solution 100 mL: 1 Gram, 200 mL/Hr, IV Piggyback, Q8HInt ceFAZolin + Sodium Chloride 0.9% intravenous solution 50 mL: 1 Gram, 100 mL/Hr, IV Piggyback, Q8HInt diphenhydrAMINE: 25 mg, Oral, Q6H, PRN: Itching diphenhydrAMINE: 50 mg, IV Push, On-CALL, PRN: Anaphylaxis docusate-senna 50 mg-8.6 mg oral tablet: 1 [...] mL, Oral, Q15Min, PRN: Other (See Comment) hydrALAZINE: 10 mg, IV Push, Q4H, PRN: [...] Last Charted Minimum Maximum Temp 97.9 (AUG 19:) 97.9 (AUG 19:) 99.1 (AUG 19 06:30) Apical HR 87 (AUG 18 20:53) 87 (AUG 18 20:53) 87 (AUG 18 20:53) Mon HR 59 (AUG 19:) 59 (AUG 19:22) 87 (AUG 18 15:27) Resp Rate 18 (AUG 19:) 16 (AUG 19 00:00) 20 (AUG 18 18:17) SBP 114 (AUG 19 11:22) 94 (AUG 18 21:00) 120 (AUG 18 18:17) DBP 61 (AUG 19 11:) L 55 (AUG 18 21:00) 67 (AUG 19 06:30) MAP 80 (AUG 19 11:22) 67 (AUG 18 21:00) 87 (AUG 18 18:17) SpO2 L 93 (AUG 19:22) L 88 (AUG 18 20:00) 98 (AUG 19 06:30) General: Alert and oriented, No acute distress. Eye: Extraocular movements are intact, Normal conjunctiva. HENT: Normocephalic, Oral mucosa is moist, No pharyngeal erythema. Neck: Supple, Non-tender, No jugular venous distention, No lymphadenopathy, incisions dry, slight bruising right neck. Respiratory: Lungs are clear to auscultation, Respirations are non-labored, Breath sounds are equal. Cardiovascular: Normal rate, Regular rhythm, No murmur, Normal peripheral perfusion, No edema. Gastrointestinal: Soft, Non-tender, Non-distended, Normal bowel sounds. Genitourinary: No costovertebral angle tenderness. Musculoskeletal: Normal range of motion, No tenderness, No swelling, No deformity. Integumentary: Warm, [place]. Neurologic: Alert, Oriented, No focal deficits. Psychiatric: Cooperative, Appropriate mood & affect. Review / Management Results review: Labs (Last four charted values) WBC H [...] 28 (AUG 19) 28 (AUG 18) 27 (SEP ) 25 (JUL 25) BUN 16 (AUG 19) 18 (AUG 18) [...] 13) T Bili 0.6 (AUG 18) 0.4 (AUG 15) 0.4 (AUG 13) 0.5 (AUG 13) PTN 6.8 (AUG 18) 7.0 (AUG 15) 7.3 (AUG 13) 6.9 (AUG 13) ALB 3.9 (AUG 18) 3.5 (AUG 15) 3.8 (AUG 13) 3.9 (AUG 13) Lipase [...] COPd -- Remote tobacco abuse RECOMMENDATIONS -- continue cefazolin Home on rocephin 2g daily when ok with hospitalist -- new portacath placement 08/19 -- continue rocephin 2g daily to 09/08 to complete 4 weeks therapy. -- Defer to hospitalist re: resuming oral anticoagulation after surgery UR: rocephin 2g daily to 09/08; weekly cbc and cmp; routine care of paula cath Discussed at length with patient Discussed with CM documented in this encounter Plan of Treatment Not on file documented as of this encounter Visit Diagnoses Not on filedocumented in this encounter Care Teams Battery Container Tester Aluminum Relationship Specialty Start Date End Date Reji Castro MD [address] [place] [id number] PCP - General Adolescent Medicine 10/02/22 documented as of this encounter
--- OUTSIDE RECORDS SUMMARY | 2025-05-03 08:50 | XMS_ITS | Encounter Summary ---
Author Organization [employer] Address [address] [place] [address] Care Team Providers Care Air Export Agent Name Role Phone Reji Castro MD Primary Care Provider [phone] Encounter Details Date Type Department Care Team (Late st Contact Info) Description 08/26/2021 Transcribed Document [facility] [place] [address] [place] [address] ProviderDelvin MD [address] [place] [address] Social History Tobacco Use Types Packs/Day Years Used Date Smoking Tobacco: Never Assessed Comments Unknown Sex and Gender Information Value Date Recorded Sex Assigned at Not on file Legal Sex Female 4:32 PM CDT Gender Identity Not on file Sexual Orientation Not on file documented as of this encounter Miscellaneous Notes * Cerner Conversion Note - Delvin Celestin MD - 08/26/2021 2:03 PM CDT Patient: IRINA TAMAYO Age: 56 years Sex: Female : 1965 Associated Diagnoses: None Author: MAURA CARROLL MD Basic Information No acute events overnight. No new complaints. Review of Systems Constitutional: Negative. Respiratory: Negative. Cardiovascular: Negative. Gastrointestinal: Negative. Health Status Allergies: Allergic Reactions (All) Severity Not Documented Anabolic steroids- Congestive heart [...] cefTRIAXone: 2 Gram, 100 mL/Hr, IV Piggyback, [id number] diphenhydrAMINE: 25 mg, Oral, Q6H, PRN: Itching [...] mg, Oral, Daily spironolactone: 25 mg, Oral, Daily warfarin: 1 Each, Oral, Weekly Documented Medications [...] Oral, BID cefTRIAXone 2 Gram, IV Piggyback, [id number] citalopram 20 mg tab 40 mg 2 [...] mg tab 25 mg 1 Tab, Oral, Daily warfarin 10 mg tab 10 mg 1 [...] Bioprosthetic mitral valve replacement / SNOMED CT 607351322 / Confirmed Chronic kidney disease / SNOMED CT 6022750531 / Confirmed COPD - Chronic obstructive pulmonary disease / SNOMED CT 696838385 / Confirmed History of obstructive sleep apnea / IMO [id number] / Confirmed HLD - Hyperlipidemia / SNOMED CT 922090503 / Confirmed HTN - Hypertension / SNOMED CT 7661362420 / Confirmed Canceled: Atrial fibrillation / SNOMED CT 48808367, Active Problems (25) AIHA (autoimmune hemolytic anemia) [...] Restless legs syndrome Thyroid disease Physical Examination VS/Measurements Vitals Signs (last 24 [...] 25 14:19) 100 (AUG 25 18:46) General: No acute distress. Eye: Extraocular movements are intact. HENT: Normocephalic, Oral mucosa is moist. Neck: Supple, No jugular venous distention. Respiratory: Lungs are clear to auscultation, Symmetrical chest wall expansion. Cardiovascular: Normal rate, No Edema. Gastrointestinal: Soft, Non-tender, Non-distended. Integumentary: Warm, Dry. Neurologic: Alert, Oriented. Psychiatric: Cooperative, Appropriate mood & affect, Normal judgment. Review / Management Results review: Labs (Last four charted values) WBC 4.5 (AUG 26) 5.4 (AUG 25) 5.6 (AUG 24) 6.1 (AUG 23) HB L 8.4 (AUG 26) L 7.7 (AUG 25) L 7.8 (AUG 24) L 7.6 (AUG 02) HCT L 29.0 (AUG 05) L 26.5 (AUG 04) L 26.6 (AUG 03) L 26.0 (AUG 02) Plt L 152 (AUG 05) 180 (AUG 25) 194 (OCT 03) 181 (AUG 02) Na 138 (AUG 05) 140 (AUG 04) 137 (AUG 03) 139 (AUG 02) K 4.0 (AUG 05) 4.1 (AUG 25) 3.9 (AUG 03) 3.8 (AUG 02) Cl L 99 (AUG 05) L 99 (AUG 04) L 99 (AUG 03) L 101 (AUG 23) CO2 H 35 (AUG 05) H 37 (AUG 25) H 35 (AUG 24) H 34 (AUG 23) BUN H 23 (AUG 05) 22 (AUG 25) H 23 (AUG 24) 19 (AUG 23) Cr H 1.30 (AUG 05) H 1.40 (AUG 25) H 1.40 (AUG 24) H 1.40 (AUG 23) Glu R 103 (AUG 26) 91 (AUG 25) H 120 (AUG 24) H 118 (AUG 23) Ca 9.4 (AUG 05) 9.7 (AUG 25) 9.4 (AUG 24) 9.1 (AUG 23) Lactic .93 (AUG 12) L .73 (AUG 11) PT H 22.4 (AUG 05) H 19.3 (AUG 04) H 18.8 (AUG 03) H 18.4 (AUG 23) INR H 2.2 (AUG 26) H 1.9 (AUG 25) H 1.8 (AUG 24) H 1.8 (AUG 23) PTT H 39.6 (JUL 20) AST 17 (AUG 18) 19 (JUL 24) [...] (AUG 13) ALB 3.9 (AUG 18) 3.5 (SEP 24) 3.8 (SEP 22) 3.9 (AUG 13) Lipase 224 (AUG 13) Troponin <0.015 (AUG 25) <0.015 (AUG 25) <0.015 (AUG 12) <0.015 (AUG 11) . AUG 26 03:52 138 L 99 H 23 / 103 4.0 H 35 H 1.30 \ AUG 26 03:52 \ L 8.4 / 4.5 L 152 / L 29.0 \ Impression and Plan Dx and Plan 1. TRISTAN on kidney disease stage III. TRISTAN in the setting of hemodynamic variation and sepsis- resolved. now at baseline. Ureteral stent placement in 2013 and later removed. 2. MSSA bacteremia 3. Sepsis 4. Hx of left ureteral stent placement and left hydronephrosis in 2013 5. Afib 6. HTN 7. Autoimmune hemolytic anemia 8. Transfusion dependent anemia- T sat 6%. S/P IV iron. Recommendations: - Continue with current diuretics. - Continue to hold aldactone and antihypertensive Meds for SBP less than 110 mmHg. Monitor I/O Avoid nephrotoxic agents. Monitor GFR adjust medications. Electronically signed by [facility], [facility] Conversion Mounter Sousaphones Cerner at 03/09/2023 8:56 PM CDT documented in this encounter Plan of Treatment Not on file documented as of this encounter Visit Diagnoses Not on filedocumented in this encounter Care Teams Air Export Agent Relationship Specialty Start Date End Date Reji Castro MD [address] [place] [id number] PCP - General Adolescent Medicine 10/02/22 documented as of this encounter
--- OUTSIDE RECORDS SUMMARY | 2025-05-03 08:50 | XMS_ITS | Encounter Summary ---
Author Organization [employer] Address [address] [place] [address] Care Team Providers Care Editorial Writer Name Role Phone Reji Castro MD Primary Care Provider [phone] Encounter Details Date Type Department Care Team (Late st Contact Info) Description 08/11/2021 Transcribed Document [facility] [place] [facility] [place] [address] ProviderDelvin MD [address] [place] [address] Social History Tobacco Use Types Packs/Day Years Used Date Smoking Tobacco: Never Assessed Comments Unknown Sex and Gender Information Value Date Recorded Sex Assigned at Not on file Legal Sex Female 4:32 PM CDT Gender Identity Not on file Sexual Orientation Not on file documented as of this encounter Miscellaneous Notes * Cerner Conversion Note - Delvin ProviderMD - 08/11/2021 8:36 PM CDT Patient: IRINA TAMAYO Age: 56 Years Sex: Female : 1965 Chief Complaint Pt presents to the ER reporting she was called for positive blood clutures which showed staph. Pt reports her port is infected. Currently on Omnicef. Pt has a mechanical valve. Has had 180 units of blood due to anemia[facility]. Primary Care Provider DEREK ROBISON DR History of Present Illness 56-year-old female with a history of COPD, atrial fibrillation, CKD unknown stage, type 2 diabetes, chronic anemia that has needed blood transfusions in the past, CAD, mitral valve replacement presents to [facility] emergency department in [place] after being told by outside provider that she had positive blood cultures that grew staph aureus. She has been on Omnicef as outpatient prior to these blood cultures. She notes that she has a port in her left chest for her frequent blood transfusions. She has no acute complaints but does note some generalized weakness during the last 2 weeks or so. Denies any discrete pain, inciting event, exacerbating relieving factors, radiation. Her symptoms of been constant. In the emergency department she has a normal white blood cell count. Her BNP is 800. We will admit her for IV antibiotics and to be evaluated by infectious disease. Review of Systems A 14 point review of systems was obtained and is noncontributory except as noted above. All past medical, social and family history reviewed. family h/o cad Social & Psychosocial Habits Tobacco 12/18/2013 Tobacco Use Within Last Twelve Months No Smoking Status Former smoker Years of Tobacco Use 30 Month Tobacco Last Used quit 2005 Vital Signs T: 36.2 ??C HR: 72(Monitored) RR: 18 BP: 104/56 SpO2: 95% HT: 162.56 cm WT: 86.36 kg BMI: 32.7 Oxygen Settings (Last) Oxygen Therapy Mode: Room air (08/11/21 18:55:00) Physical Exam General: Well appearing, not diaphoretic, no acute distress Head: Normocephalic, atraumatic Eyes: No ocular discharge, no scleral injection, no icterus Ears: Normal external auricles Nose: No rhinorrhea, no epistaxis Throat: Not examined, no difficulty swallowing Pulm: No apparent respiratory distress Cardio: Normal rate, regular rhythm, no peripheral edema GI: non-distended Neuro: Alert and oriented, cn2-12 grossly intact, strength 5/5 bilaterally. Psych: Cooperative Skin: No jaundice Assessment/Plan -IV vancomycin, ID consult. Follow blood cultures -Unknown baseline renal function, get urine studies. Hold TU/ARB. -Review of home medications shows patient taking furosemide and torsemide. Will consolidate to 40 mg p.o. torsemide daily, monitor volume status. Continue spironolactone. -Suspect some element of cardiorenal syndrome, get echo for LVEF also rule out vegetations as source of recurrent bacteremia -Pharmacy consulted for warfarin dosing -Consult nephrology to follow suspected TRISTAN on CKD of unknown stage - Continue to monitor electrolytes and replete as appropriate - Pt high risk for vte, warfarin for vte ppx. - Continue medications for chronic problems I have personally reviewed pertinent laboratory, ekg and imaging results, as well as documentation in the patient's emr. Laboratory and imaging orders per the above plan have been addressed, see orders below. Home medications have been reviewed. Patient's case, assessment and plan have been discussed on this date with patient. Code Status Start: 08/11/21 20:26:00 EDT, Full Code, Continuous Order 1. Bacteremia 2. Acute kidney injury superimposed on chronic kidney disease, Acute kidney injury 3. CHF with unknown LVEF 4. Atrial fibrillation 5. Diabetes mellitus type II 6. residential current use of anticoagulant At risk for central venous catheter associated infection Medical screening exam Orders: acetaminophen, 650 mg, Oral, Tab, Q6H, PRN for Pain (Mild 1-3), Routine, Start 08/11/21 20:56:00 EDT, 08/11/21:56:00 EDT albuterol, 3 mL, Nebulized Inhalation, Inh, RT_Q4H, PRN for Shortness of Breath, Routine, Start 08/11/21 20:56:00 EDT albuterol-ipratropium, 3 mL, Nebulized Inhalation, Inh, RT_Q4H While Awake, Routine, Start 08/11/21 20:56:00 EDT carvedilol, 3.125 mg, Oral, Tab, BID, Routine, Start 08/11/21 21:00:00 EDT, 08/11/21 20:44:00 EDT citalopram, 40 mg, Oral, Tab, Daily, Routine, Start 08/12/21 9:00:00 EDT, 08/11/21 20:44:00 EDT dilTIAZem, 60 mg, Oral, Tab, BID, Routine, Start 08/11/21 21:00:00 EDT, 08/11/21 20:44:00 EDT fentaNYL, 25 mcg, IV Push, Inj, Q4H, PRN for Pain (Severe 7-10), Routine, Start 08/11/21 20:56:00 EDT, 08/11/21 20:56:00 EDT hydrALAZINE, 10 mg, IV Push, Inj, Q4H, PRN for Hypertension, Routine, Start 08/11/21 20:56:00 EDT, 08/11/21 20:56:00 EDT insulin lispro-insulin lispro protamine, 30 Units, SubCutaneous, Inj, BID, Routine, Start 08/11/21 21:00:00 EDT, 08/11/21 20:44:00 EDT labetalol, 10 mg, IV Push, Inj, Q4H, PRN for Hypertension, Routine, Start 08/11/21 20:56:00 EDT, 08/11/21 20:56:00 EDT LORazepam, 2 mg, Oral, Tab, Q8H, Routine, Start 08/11/21 22:00:00 EDT, 08/11/21 20:44:00 EDT metOLazone, 2.5 mg, Oral, Tab, Daily, Routine, Start 08/12/21 9:00:00 EDT, 08/11/21 20:44:00 EDT ondansetron, 4 mg, IV Push, Inj, Q6H, PRN for Nausea/Vomiting, Routine, Start 08/11/21 20:56:00 EDT, 08/11/21 20:56:00 EDT pantoprazole, 40 mg, Oral, EC Tab, Daily, Routine, Start 08/12/21 9:00:00 EDT, 08/11/21 20:44:00 EDT spironolactone, 25 mg, Oral, Tab, Daily, Routine, Start 08/12/21 9:00:00 EDT, 08/11/21 20:44:00 EDT torsemide, 40 mg, Oral, Tab, Daily, Routine, Start 08/12/21 9:00:00 EDT, 08/11/21 20:49:00 EDT traMADol, 50 mg, Oral, Tab, Q6H, PRN for Pain (Moderate 4-6), Routine, Start 08/11/21 20:56:00 EDT, 08/11/21 20:56:00 EDT warfarin, 6 mg, Oral, Tab, Daily, Routine, Start 08/11/21 20:44:00 EDT, 08/11/21 20:44:00 EDT Admit to Inpatient CBC w/ Auto Diff CMP Comprehensive Metabolic Panel Consult to Pharmacist Warfarin Consult to Physician Consult to Physician Consult to Physician Creatinine Urine Random Diet, Adult EC Echo Complete Eosinophil Count Other Intake and Output Strict ProBNP ProBNP Procalcitonin Respiratory Care Assessment Resuscitation Status Sequential Compression Device Sodium Level Urine Random Troponin I Ultra Weight (Routine) VTE Prophylaxis - Medical Warfarin 6 mg, Oral, Tab, Daily, Routine, Start 08/11/21 20:44:00 EDT, 08/11/21 20:44:00 EDT (REJI GUERRA) Sequential Compression Device Start: 08/11/21 20:26:00 EDT, Bilateral, Length: Knee High, While patient is in bed, Continuous Order (REJI GUERRA) Problem List/Past Medical History Ongoing Amblyopia Arthritis Atrial fibrillation Back pain Bowel obstruction Bronchitis Cardiac arrhythmia Cardiomyopathy COPD Diabetes mellitus Diabetes mellitus type II Diverticulosis Edema Fibromyalgia frequent headache GERD - Gastro-esophageal reflux disease Heart failure Heart valve Hepatomegaly High blood pressure Hyperlipidemia Lazy eye Myocardial infarction neuropathy hands and feet Ovarian cyst Renal calculus Restless legs syndrome Thyroid disease Historical No qualifying data Procedure/Surgical History bilateral tubal ligation, cardiac catheterization, diagnostic laparoscopy with lysis of adhesions, fulgeration of implants, excision of adrenal gland tumor (benign), great toe surger, left, hernia repair, abdominal, jaw surgery, left, left jaw pin, ligament release right thumb, Replacement, mitral valve, with cardiopulmonary bypass., sigmoid colon resection, spontaneous vaginal delivery x 2, stent left ureter, sternotomy, Tendon sheath incision (eg, for trigger finger).. Home Medications (19) Active Aspir 81 81 mg, Oral, Daily Ativan 2 mg oral tablet 2 mg = 1 Tab, Oral, Q8H Cardizem 60 mg oral tablet 60 mg = 1 Tab, Oral, BID Celexa 40 mg oral tablet 40 mg = 1 Tab, Oral, Daily Coreg 3.125 mg oral tablet 3.125 mg = 1 Tab, Oral, BID Coumadin 6 mg oral tablet 6 mg = 1 Tab, Oral, Daily Dexilant 60 mg oral delayed release capsule 60 mg = 1 Cap, Oral, Daily ferrous gluconate 324 mg (38 mg elemental iron) oral tablet 1 Tab, Oral, Daily Flagyl 500 mg oral tablet 500 mg = 1 Tab, IV Piggyback, Q12H Humalog Mix 75/25 36 Units, SubCutaneous, BID Keflex 500 mg oral capsule 500 mg = 1 Cap, Oral, QID Lasix 40 mg oral tablet 40 mg = 1 Tab, Oral, Daily losartan 50 mg oral tablet 50 mg = 1 Tab, Oral, Daily Lovenox 100 mg/mL injectable solution 100 mg = 1 mL, SubCutaneous, BID Percocet 10/325 oral tablet 2 Tab, PRN, Oral, Q6H Probiotic Formula oral capsule 1 Cap, Oral, Daily spironolactone 25 mg oral tablet 25 mg = 1 Tab, Oral, Daily torsemide 20 mg oral tablet 20 mg = 1 Tab, Oral, Daily Zaroxolyn 2.5 mg oral tablet 2.5 mg = 1 Tab, Oral, Daily Allergies Detrol (Congestive heart failure) anabolic steroids (Congestive heart failure) buprenorphine codeine glipiZIDE (Congestive heart failure) metFORMIN (Congestive heart failure) penicillins propafenone theophylline Social History Tobacco Use in Last 12 Months: No. Smoking Status Former smoker. Years of Use: 30. Last Used: quit 2005. Lab Results Test Name Test Result Date/Time Sodium Level 131 mmol/L (Low) 08/11/2021 17:59 EDT Potassium Level 4.1 mmol/L 08/11/2021 17:59 EDT Chloride Level 96 mmol/L (Low) 08/11/2021 17:59 EDT Carbon Dioxide Level 26 mmol/L 08/11/2021 17:59 EDT Anion Gap 13 08/11/2021 17:59 EDT Glucose Level 87 mg/dL 08/11/2021 17:59 EDT Blood Urea Nitrogen 70 mg/dL (High) 08/11/2021 17:59 EDT Creatinine Level 2.50 mg/dL (High) 08/11/2021 17:59 EDT eGFR 24 mL/min/1.73m2 (Low) 08/11/2021 17:59 EDT eGFR NonAfrican 20 mL/min/1.73m2 (Low) 08/11/2021 17:59 EDT Bun/Creatinine 28.0 (High) 08/11/2021 17:59 EDT Calcium Level 10.0 mg/dL 08/11/2021 17:59 EDT Protein Total 8.7 Gram/dL (High) 08/11/2021 17:59 EDT Albumin Level 4.4 Gram/dL 08/11/2021 17:59 EDT Globulin 4.3 Gram/dL 08/11/2021 17:59 EDT A/G Ratio 1.0 (Low) 08/11/2021 17:59 EDT Bilirubin Total 0.7 mg/dL 08/11/2021 17:59 EDT Alk Phos 128 Units/Liter 08/11/2021 17:59 EDT AST 18 Units/Liter 08/11/2021 17:59 EDT ALT 25 Units/Liter 08/11/2021 17:59 EDT Magnesium Level 2.9 mg/dL (High) 08/11/2021 17:59 EDT Lactic Acid Level 0.73 mmol/L (Low) 08/11/2021 17:59 EDT Troponin I Ultra <0.015 ng/mL 08/11/2021 17:59 EDT ProBNP 813 pg/mL (High) 08/11/2021 17:59 EDT WBC 6.8 K/uL 08/11/2021 17:59 EDT RBC 3.92 Million/uL (Low) 08/11/2021 17:59 EDT Hgb 9.5 g/dL (Low) 08/11/2021 17:59 EDT Hct 31.3 % (Low) 08/11/2021 17:59 EDT MCV 79.8 fL 08/11/2021 17:59 EDT MCH 24.2 pg (Low) 08/11/2021 17:59 EDT MCHC 30.4 Gram/dL (Low) 08/11/2021 17:59 EDT Platelet Count 223 K/uL 08/11/2021 17:59 EDT MPV 10.4 fL 08/11/2021 17:59 EDT RDW 19.2 % (High) 08/11/2021 17:59 EDT Neut % 75.2 % (High) 08/11/2021 17:59 EDT Neut # 5.15 K/uL 08/11/2021 17:59 EDT Lymph % 11.1 % (Low) 08/11/2021 17:59 EDT Lymph # 0.76 K/uL (Low) 08/11/2021 17:59 EDT [place] % 8.9 % 08/11/2021 17:59 EDT [place] # 0.61 K/uL 08/11/2021 17:59 EDT Eos % 4.4 % 08/11/2021 17:59 EDT Eos # 0.30 08/11/2021 17:59 EDT Baso % 0.4 % 08/11/2021 17:59 EDT Baso # 0.03 08/11/2021 17:59 EDT Slide Review No 08/11/2021 17:59 EDT PT 18.9 Second(s) (High) 08/11/2021 17:59 EDT INR 1.8 (High) 08/11/2021 17:59 EDT PTT 39.6 Second(s) (High) 08/11/2021 17:59 EDT Urine Type U CleanCatch 08/11/2021 17:59 EDT Urine Color YELLOW2 08/11/2021 17:59 EDT Urine Appearance CLEAR2 08/11/2021 17:59 EDT Urine Specific [place] 1.007 08/11/2021 17:59 EDT Urine pH Dipstick 6.5 08/11/2021 17:59 EDT Urine Leukocyte Esterase NEGATIVE2 08/11/2021 17:59 EDT Urine Nitrite NEGATIVE2 08/11/2021 17:59 EDT Urine Protein Dipstick NEGATIVE2 08/11/2021 17:59 EDT Urine Glucose Dipstick NEGATIVE2 08/11/2021 17:59 EDT Urine Ketones Dipstick NEGATIVE2 08/11/2021 17:59 EDT Urine Urobilinogen Dipstick 0.2 08/11/2021 17:59 EDT Urine Bilirubin Dipstick NEGATIVE2 08/11/2021 17:59 EDT Urine Blood Dipstick NEGATIVE2 08/11/2021 17:59 EDT Ur WBC None Seen 08/11/2021 17:59 EDT Ur Squamous Epithelial Cells 0-2 08/11/2021 17:59 EDT Additional Documentation Code Status Start: 08/11/21 20:26:00 EDT, Full Code, Continuous Order Electronically signed by Lanny [facility] Conversion Filter Tender Jelly Cerner at 03/09/2023 8:40 PM CDT documented in this encounter Plan of Treatment Not on file documented as of this encounter Visit Diagnoses Not on filedocumented in this encounter Care Teams Editorial Writer Relationship Specialty Start Date End Date Reji Castro MD [address] [place] [id number] PCP - General Adolescent Medicine 10/02/22 documented as of this encounter
--- OUTSIDE RECORDS SUMMARY | 2025-05-03 08:50 | XMS_ITS | Encounter Summary ---
Author Organization [employer] Address [address] [place] [address] Care Team Providers Care Drum Sander Offbearer Name Role Phone Reji Castro MD Primary Care Provider + [phone] Encounter Details Date Type Department Care Team (Late st Contact Info) Description 08/14/2021 Transcribed Document [facility] [place] [facility] [place] [address] ProviderDelvin MD [address] [place] [address] Social History Tobacco Use Types Packs/Day Years Used Date Smoking Tobacco: Never Assessed Comments Unknown Sex and Gender Information Value Date Recorded Sex Assigned at Not on file Legal Sex Female 4:32 PM CDT Gender Identity Not on file Sexual Orientation Not on file documented as of this encounter Miscellaneous Notes * Cerner Conversion Note - Delvin Celestin MD - 08/14/2021 9:06 AM CDT DATE OF PROCEDURE: 08/14/2021 SURGEON: Sandeep Holliday MD PREOPERATIVE DIAGNOSIS: Infected left subclavian Port-A-Cath. POSTOPERATIVE DIAGNOSIS: Infected left subclavian Port-A-Cath. PROCEDURE PERFORMED: Removal of left subclavian Port-A-Cath. ANESTHESIA: Local MAC. DESCRIPTION OF PROCEDURE: The patient was brought to the operating room. She was monitored by Anesthesia and IV sedation given. She was sterilely prepped and draped. Time-out was performed per protocol. 1% lidocaine was used for local anesthesia. The patient's old scar along the left anterior chest wall was opened sharply with scalpel. The underlying port was dissected out. It was excised with Bovie cautery. The catheter was removed from the subclavian vein intact. Cultures were obtained of the tip. Direct pressure was applied over the subclavian vein site for approximately 10 minutes. Meticulous hemostasis assured. The wound was then closed in layers with interrupted 3-0 Vicryl followed by running 4-0 Monocryl subcuticular stitch and Dermabond. A pressure dressing was placed. There were no complications. The patient was taken back to her room in stable condition. /[id number] MD DOTTIE Pollard/TONYA / DOTTIE / KENDRA /[id number] Electronically signed by Lanny, [facility] Conversion Control Officer Cerner at 03/09/2023 8:43 PM CDT documented in this encounter Plan of Treatment Not on file documented as of this encounter Visit Diagnoses Not on filedocumented in this encounter Care Teams Drum Sander Offbearer Relationship Specialty Start Date End Date Reji Castro MD [address] [place] [id number] PCP - General Adolescent Medicine 10/02/22 documented as of this encounter
--- OUTSIDE RECORDS SUMMARY | 2025-05-03 08:50 | XMS_ITS | Encounter Summary ---
Author Organization [employer] Address [address] [place] [address] Care Team Providers Care Outside Collector Name Role Phone Reji Castro MD Primary Care Provider [phone] Encounter Details Date Type Department Care Team (Late st Contact Info) Description 08/14/2021 Transcribed Document [facility] [place] Family Medicine [address] [place] [address] ProviderDelvin MD [address] [place] [address] Social History Tobacco Use Types Packs/Day Years Used Date Smoking Tobacco: Never Assessed Comments Unknown Sex and Gender Information Value Date Recorded Sex Assigned at Not on file Legal Sex Female 4:32 PM CDT Gender Identity Not on file Sexual Orientation Not on file documented as of this encounter Miscellaneous Notes * Cerner Conversion Note - Historical ProviderMD - 08/14/2021 4:20 PM CDT RX Interventions Entered On: 08/15/2021 8:03 EDT Performed On: 08/15/2021 8:03 EDT by OLI MORRIS PharmD Clinical Interventions Clarify Drug Order : Yes OLI MORRIS PharmD - 08/15/2021 8:03 EDT Clarify Drug Order Clarify Drug Order, Order : heparin dosing double check Clarify Drug Order, Value : 0 Dollar Clarify Drug Order, Time : 10 Minute(s) OLI MORRIS PharmD - 08/15/2021 8:03 EDT documented in this encounter Plan of Treatment Not on file documented as of this encounter Visit Diagnoses Not on filedocumented in this encounter Care Teams Outside Collector Relationship Specialty Start Date End Date Reji Castro MD [address] [place] [id number] PCP - General Adolescent Medicine 10/02/22 documented as of this encounter
--- OUTSIDE RECORDS SUMMARY | 2025-05-03 08:50 | XMS_ITS | Encounter Summary ---
Author Organization [employer] Address [address] [place] [address] Care Team Providers Care Grade School Teacher Name Role Phone Reji Castro MD Primary Care Provider [phone] Encounter Details Date Type Department Care Team (Late st Contact Info) Description 08/20/2021 Transcribed Document [facility] [place] Family Medicine [address] [place] [address] ProviderDelvin MD [address] [place] [address] Social History Tobacco Use Types Packs/Day Years Used Date Smoking Tobacco: Never Assessed Comments Unknown Sex and Gender Information Value Date Recorded Sex Assigned at Not on file Legal Sex Female 4:32 PM CDT Gender Identity Not on file Sexual Orientation Not on file documented as of this encounter Miscellaneous Notes * Cerner Conversion Note - Delvin Celestin MD - 08/20/2021 5:00 PM CDT Chart Check - Review Order Profile Entered On: 08/20/2021 16:48 EDT Performed On: 08/20/2021 17:00 EDT by Cynthia Perez, RN Chart Check Powerplans Initiated/Discontinued as Appropriate : Yes All Active Orders Reviewed : Yes Cynthia Perez RN - 08/20/2021 16:48 EDT Electronically signed by Lanny [facility] Conversion Edge Cutting Machine Operator Cerner at 03/09/2023 8:32 PM CDT documented in this encounter Plan of Treatment Not on file documented as of this encounter Visit Diagnoses Not on filedocumented in this encounter Care Teams Grade School Teacher Relationship Specialty Start Date End Date Reji Castro MD [address] [place] [id number] PCP - General Adolescent Medicine 10/02/22 documented as of this encounter
--- OUTSIDE RECORDS SUMMARY | 2025-05-03 08:50 | XMS_ITS | Encounter Summary ---
Author Organization [employer] Address [address] [place] [address] Care Team Providers Care Unit Manager Convenience Stores Name Role Phone Reji Castro MD Primary Care Provider [phone] Encounter Details Date Type Department Care Team (Late st Contact Info) Description 08/26/2021 Transcribed Document [facility] [place] Family Medicine [facility] [address] ProviderDelvin MD [address] [place] [id number] Social History Tobacco Use Types Packs/Day Years Used Date Smoking Tobacco: Never Assessed Comments Unknown Sex and Gender Information Value Date Recorded Sex Assigned at Not on file Legal Sex Female 4:32 PM CDT Gender Identity Not on file Sexual Orientation Not on file documented as of this encounter Miscellaneous Notes * Cerner Conversion Note - Delvin Celestin MD - 08/26/2021 11:02 AM CDT Patient: IRINA TAMAYO Age: 56 years Sex: Female : 1965 Associated Diagnoses: None Author: ZEYAD NIELSEN, PharmD Pharmacy Consult - Warfarin HPI: 56 y/o F presenting to [facility] with history of COPD, atrial fibrillation, CKD unknown stage, DMII, chronic anemias, CAD, & mitral valve mechanical valve. Port in left chest resulting positive blood cultures at check up. Pharmacy consulted to dose warfarin 2/2 atrial fibrillation. Indication: mechanical MV; atrial fibrillation Consulting Provider: Dr. Jaimes - (hospitalist: Dr. Acosta) Home Dose: warfarin 6 mg PO daily INR Goal: 2.5-3.5 Bridge Therapy: heparin gtt heparin gtt reinitiated per Clyde Corral PA-C given he held it due to procedure on 08/14 d/w Dr. Cuevas: original goal INR 2-3, but should be 2.5-3.5 given mechanical MV + atrial fibrillation d/w Dr. Solorzano (08/19): verbal orders given on multidisciplinary rounds for anticoagulation plan Dr. Acosta (08/25): hospitalist on service now Drug Interactions: none significant Vitals Signs (last 24 hrs) Last Charted Minimum Maximum Temp 97.5 (AUG 26 05:31) 97.5 (AUG 26 05:31) 97.7 (AUG 04 18:39) Apical HR 81 (OCT 04 22:24) 81 (OCT 04 22:24) 81 (OCT 04 22:24) Mon HR 86 (AUG 26 05:31) 77 (OCT 04 19:00) 87 (OCT 04 18:46) Resp Rate 14 (AUG 26 05:31) 14 (AUG 04 21:01) 16 (AUG 04 18:39) SBP 101 (AUG 05 05:31) 92 (OCT 04 14:19) 105 (OCT 04 18:54) DBP 61 (AUG 26 05:31) L 49 (OCT 04 19:00) 61 (OCT 04 18:39) MAP 85 (AUG 05 05:31) 71 (OCT 04 14:19) 85 (AUG 05 05:31) SpO2 96 (AUG 05 05:31) 96 (OCT 04 14:19) 100 (OCT 04 18:46) Labs (Last four charted values) WBC 4.5 (OCT 05) 5.4 (OCT 04) 5.6 (OCT 03) 6.1 (OCT 02) HB L 8.4 (OCT 05) L 7.7 (OCT 04) L 7.8 (OCT 03) L 7.6 (OCT 02) HCT L 29.0 (OCT 05) L 26.5 (OCT 04) L 26.6 (OCT 03) L 26.0 (OCT 02) Plt L 152 (OCT 05) 180 (OCT 04) 194 (OCT 03) 181 (OCT 02) Na 138 (OCT 05) 140 (OCT 04) 137 (OCT 03) 139 (OCT 02) K 4.0 (OCT 05) 4.1 (AUG 25) 3.9 (AUG 24) 3.8 (AUG 23) Cl L 99 (AUG 26) L 99 (AUG 25) L 99 (AUG 24) L 101 (AUG 23) CO2 H 35 (AUG 05) H 37 (AUG 25) H 35 (AUG 03) H 34 (AUG 23) BUN H 23 [...] 25) <0.015 (AUG 12) <0.015 (AUG 11) Current Warfarin Trend Date 08/11 08/12 08/13 08/14 08/15 08/16 08/17 INR 1.8 1.7 1.6 1.7 1.8 1.7 1.4 Dose NO DOSE 6 mg 6 mg HOLD HOLD HOLD HOLD Bridge NONE heparin gtt heparin gtt HOLD heparin gtt heparin gtt heparin gtt Date 08/18 08/19 08/20 08/21 08/22 08/23 08/24 INR 1.3 1.3 1.3 1.3 1.4 1.8 1.8 Dose HOLD 6 mg 6 mg 7.5 mg 7.5 mg 6 mg 7.5 mg Bridge *heparin gtt* to midnight NONE heparin gtt in AM heparin gtt heparin gtt heparin gtt heparin gtt Date 08/25 08/26 INR 1.9 2.2 Dose [10 mg] Bridge [heparin gtt] Creatinine Clearance (Current Encounter/Past 24 Hours) Creatinine Level 1.30 mg/dL HI 08/26/2021 04:41 Bun/Creatinine 17.7 08/26/2021 04:41 Estimated Creatinine Clearance 40.73 mL/Min 08/26/2021 04:41 A/P: 1.) Give another 10 mg dose today with goal to get pt off heparin drip when INR >2.5. New maintenance dose will probably be ~ 8 mg daily. 2). Daily INR Will followZeyad PharmD, BCPS [phone] Electronically signed by Lanny, [facility] Conversion Human Resource Management Instructor Cerner at 03/09/2023 8:52 PM CDT documented in this encounter Plan of Treatment Not on file documented as of this encounter Visit Diagnoses Not on filedocumented in this encounter Care Teams Unit Manager Convenience Stores Relationship Specialty Start Date End Date Reji Castro MD [address] [place] [address] PCP - General Adolescent Medicine 10/02/22 documented as of this encounter
--- OUTSIDE RECORDS SUMMARY | 2025-05-03 08:50 | XMS_ITS | Encounter Summary ---
Author Organization [employer] Address [address] [place] [address] Care Team Providers Care Breastfeeding Program Coordinator Name Role Phone Reji Castro MD Primary Care Provider [phone] Encounter Details Date Type Department Care Team (Late st Contact Info) Description 08/11/2021 Transcribed Document [facility] [place] Family Medicine [facility] [place] [address] ProviderDelvin MD [address] [place] [id number] Social History Tobacco Use Types Packs/Day Years Used Date Smoking Tobacco: Never Assessed Comments Unknown Sex and Gender Information Value Date Recorded Sex Assigned at Not on file Legal Sex Female 4:32 PM CDT Gender Identity Not on file Sexual Orientation Not on file documented as of this encounter Miscellaneous Notes * Cerner Conversion Note - Delvin Celestin MD - 08/11/2021 6:54 PM CDT Patient: IRINA TAMAYO Age: 56 years Sex: Female : 1965 Associated Diagnoses: Acute kidney injury; At risk for central venous catheter associated infection Author: TAMELA CORONEL MD Basic Information Additional information: Chief Complaint from Nursing Triage Note : Chief Complaint 08/11/2021 16:19 EDT Chief Complaint Pt presents to the ER reporting she was called for positive blood clutures which showed staph. Pt reports her port is infected. Currently on Omnicef. Pt has a mechanical valve. Has had 180 units of blood due to anemia, whihc is why she has a port. . History of Present Illness This a 56-year-old female presented to the emergency department for medical evaluation. The patient has a longstanding history of mechanical valve and does have a port placed in her left chest. She states that she was feeling bad last week and went to her primary physician. At that time she had blood cultures drawn and they were found to be positive. She was started on antibiotic therapy, however with her follow-up appointment and continued to have positive blood cultures. She has been feeling rundown as of late. She has some generalized weakness and muscle aches. Complains of some nausea. Denies any vomiting. She denied having socially abdominal pain. No diarrhea. Denies any headache or change in vision. No focal weakness. No chest pain or shortness of breath. Review of Systems Constitutional symptoms: Weakness, fatigue, decreased activity, No fever, Skin symptoms: No rash, Eye symptoms: Vision unchanged. Respiratory symptoms: No shortness of breath, Cardiovascular symptoms: No chest pain, no syncope. Gastrointestinal symptoms: Nausea, no abdominal pain, no vomiting. Musculoskeletal symptoms: Muscle pain, No Joint pain, Neurologic symptoms: No headache, no dizziness. Hematologic/Lymphatic symptoms: Bleeding tendency negative, Health Status Allergies: Allergic Reactions (Selected) Severity Not Documented Anabolic steroids- Congestive heart failure. Buprenorphine- No reactions were documented. Codeine- No reactions were documented. Detrol- Congestive heart failure. GlipiZIDE- Congestive heart failure. MetFORMIN- Congestive heart failure. Penicillins- No reactions were documented. Propafenone- No reactions were documented. Theophylline- No reactions were documented.. Past Medical/ Family/ Social History Surgical history: left jaw pin. Replacement, mitral valve, with cardiopulmonary bypass (45803). sternotomy. hernia repair, abdominal. sigmoid colon resection. Tendon sheath incision (eg, for trigger finger) (39478). jaw surgery, left. great toe surger, left. excision of adrenal gland tumor (benign). ligament release right thumb. diagnostic laparoscopy with lysis of adhesions, fulgeration of implants. bilateral tubal ligation. spontaneous vaginal delivery x 2. cardiac catheterization. stent left ureter.. Family history: No family history items have been selected or recorded.. Social history: Social & Psychosocial Habits Tobacco 12/18/2013 Tobacco Use Within Last Twelve Months No Smoking Status Former smoker Years of Tobacco Use 30 Month Tobacco Last Used quit 2005 . Problem list: Active Problems (28) Amblyopia Arthritis Atrial fibrillation Back pain Bowel obstruction Bronchitis Cardiac arrhythmia Cardiomyopathy COPD Diabetes mellitus Diabetes mellitus type II Diverticulosis Edema Fibromyalgia frequent headache GERD - Gastro-esophageal reflux disease Heart failure Heart valve Hepatomegaly High blood pressure Hyperlipidemia Lazy eye Myocardial infarction neuropathy hands and feet Ovarian cyst Renal calculus Restless legs syndrome Thyroid disease . Physical Examination Vital Signs Vital Signs/Vital Measures 08/11/2021 18:46 EDT Oxygen Therapy Mode Room air 08/11/2021 16:19 EDT Systolic Blood Pressure 112 mmHg Diastolic Blood Pressure 59 mmHg LOW Temperature Source Oral Temperature Mode Fahrenheit Temperature, Fahrenheit 97.2 Deg F Clinical Temperature, C 36.2 Deg C Peripheral Pulse Rate 76 bpm Respiratory Rate 18 Breaths/Min Oxygen Saturation 98 % . General: Alert, no acute distress. Skin: Warm, no rash. Eye: Pupils are equal, round and reactive to light, normal conjunctiva. Cardiovascular: Regular rate and rhythm, No murmur. Respiratory: Lungs are clear to auscultation, respirations are non-labored. Gastrointestinal: Soft, Nontender, Non distended. Musculoskeletal: Normal ROM. Neurological: Alert and oriented to person, place, time, and situation, No focal neurological deficit observed. Medical Decision Making Differential Diagnosis: Dehydration, electrolyte imbalance, fever, weakness, pneumonia, urinary tract infection, confusion, viral syndrome, anxiety. Documents reviewed: Emergency department nurses' notes. Results review: Lab results : Lab Results 08/11/2021 17:59 EDT Sodium Level 131 mmol/L LOW Potassium Level 4.1 mmol/L Chloride Level 96 mmol/L LOW Carbon Dioxide Level 26 mmol/L Anion Gap 13 Glucose Level 87 mg/dL Blood Urea Nitrogen 70 mg/dL HI Creatinine Level 2.50 mg/dL HI eGFR 24 mL/min/1.73m2 LOW eGFR NonAfrican 20 mL/min/1.73m2 LOW Bun/Creatinine 28.0 HI Calcium Level 10.0 mg/dL Protein Total 8.7 Gram/dL HI Albumin Level 4.4 Gram/dL Globulin 4.3 Gram/dL A/G Ratio 1.0 LOW Bilirubin Total 0.7 mg/dL Alk Phos 128 Units/Liter AST 18 Units/Liter ALT 25 Units/Liter Magnesium Level 2.9 mg/dL HI Lactic Acid Level 0.73 mmol/L LOW Troponin I Ultra <0.015 ng/mL ProBNP 813 pg/mL HI WBC 6.8 K/uL RBC 3.92 Million/uL LOW Hgb 9.5 g/dL LOW Hct 31.3 % LOW MCV 79.8 fL MCH 24.2 pg LOW MCHC 30.4 Gram/dL LOW Platelet Count 223 K/uL MPV 10.4 fL RDW 19.2 % HI Neut % 75.2 % HI Neut # 5.15 K/uL Lymph % 11.1 % LOW Lymph # 0.76 K/uL LOW [place] % 8.9 % [place] # 0.61 K/uL Eos % 4.4 % Eos # 0.30 Baso % 0.4 % Baso # 0.03 Slide Review No PT 18.9 Second(s) HI INR 1.8 HI PTT 39.6 Second(s) HI Urine Type U CleanCatch Urine Color Yellow Urine Appearance Clear Urine Specific [place] 1.007 Urine pH Dipstick 6.5 Urine Leukocyte Esterase Negative Urine Nitrite Negative Urine Protein Dipstick Negative Urine Glucose Dipstick Negative Urine Ketones Dipstick Negative Urine Urobilinogen Dipstick 0.2 EU/dL Urine Bilirubin Dipstick Negative Urine Blood Dipstick Negative Ur WBC None Seen /HPF Ur Squamous Epithelial Cells 0-2 /HPF . Radiology results: Radiology Results (Last 48 hours) [id number] -- 08/11/2021 16:16 CR Chest 1 Vw Portable (08/11/2021 18:02) Result: PORTABLE CHESTCLINICAL HISTORY: CoughCOMPARISON: 12/14/2011.FINDINGS: Single portable view of the chest obtained. The lungs arewell expanded and clear. Cardiac size is significantly enlarged. Vascularity is normal considering technique. No pleural fluid isdemonstrated by portable imaging. A left subclavian Port-A-Cath has beenplaced in the interim terminating in the distribution of the SVC withoutpneumothorax. Prior median sternotomy and valvular replacement.Generalized osteopeniaIMPRESSION:No active disease by portable imaging. . Reexamination/ Reevaluation Time: 08/11/2021 20:31:00 . Notes: On reevaluation, patient appears to be fine. No significant leukocytosis patient does have some mild kidney disease, however this appears to be chronic in nature. Patient be started on broad-spectrum antibiotics. Admitted to hospital for further evaluation and treatment.. Impression and Plan Diagnosis Acute kidney injury - Admitting, Medical At risk for central venous catheter associated infection - Admitting, Medical Plan Condition: Improved. Disposition: Admit Admit/Transfer/Discharge: Admit to Inpatient (Order): Start: 08/11/2021 20:33 EDT, Admit reason: Infected indwelling line, Estimated length of stay 2 Midnights or LONGER, Level of Care: Med-Surg, Admitting: REJI GUERRA MD, Attending: REJI GUERRA MD. Counseled: Patient, Regarding diagnosis, Regarding diagnostic results, Regarding treatment plan, Patient indicated understanding of instructions. documented in this encounter Plan of Treatment Not on file documented as of this encounter Visit Diagnoses Not on filedocumented in this encounter Care Teams Breastfeeding Program Coordinator Relationship Specialty Start Date End Date Reji Castro MD [address] [place] [address] PCP - General Adolescent Medicine 10/02/22 documented as of this encounter
--- OUTSIDE RECORDS SUMMARY | 2025-05-03 08:50 | XMS_ITS | Encounter Summary ---
Author Organization [employer] Address [address] [place] [address] Care Team Providers Care Consulting Solution Manager Name Role Phone Reji Castro MD Primary Care Provider [phone] Encounter Details Date Type Department Care Team (Late st Contact Info) Description 08/20/2021 Transcribed Document [facility] [place] [address] [place] [address] ProviderDelvin MD [address] [place] [address] Social History Tobacco Use Types Packs/Day Years Used Date Smoking Tobacco: Never Assessed Comments Unknown Sex and Gender Information Value Date Recorded Sex Assigned at Not on file Legal Sex Female 4:32 PM CDT Gender Identity Not on file Sexual Orientation Not on file documented as of this encounter Miscellaneous Notes * Cerner Conversion Note - Delvin Celestin MD - 08/20/2021 9:59 AM CDT Stroke/Warfarin Instructions Entered On: 08/20/2021 9:59 EDT Performed On: 08/20/2021 9:59 EDT by Sallie Cash RN Stroke/Warfarin Instructions Stroke/TIA Discharge Ins : N/A Warfarin Discharge Ins : Open Sallie Cash RN - 08/20/2021 9:59 EDT Warfarin Discharge Instructions Indication for Warfarin Anticoagulation : Atrial fibrillation Warfarin Anticoagulation Disposition : Continuation of pre-hospital treatment Last INR Result : INR: 1.3 (High), Reference Range: (0.9 - 1.2), 08/20/2021 7:38 AM Notify Provider of Signs/Symptoms of : Significant bleeding, Clot Sallie Cash RN - 08/20/2021 9:59 EDT documented in this encounter Plan of Treatment Not on file documented as of this encounter Visit Diagnoses Not on filedocumented in this encounter Care Teams Consulting Solution Manager Relationship Specialty Start Date End Date Reji Castro MD [address] [place] [id number] PCP - General Adolescent Medicine 10/02/22 documented as of this encounter
--- OUTSIDE RECORDS SUMMARY | 2025-05-03 08:50 | XMS_ITS | Encounter Summary ---
Author Organization [employer] Address [address] [place] [address] Care Team Providers Care Butter Wrapper Name Role Phone Reji Saldaña MD Primary Care Provider [phone] Encounter Details Date Type Department Care Team (Late st Contact Info) Description 08/14/2021 Transcribed Document [facility] [place] Family Medicine [address] [place], [place] [id number] ProviderDelvin MD [facility] [place] [address] Social History Tobacco Use Types Packs/Day Years Used Date Smoking Tobacco: Never Assessed Comments Unknown Sex and Gender Information Value Date Recorded Sex Assigned at Not on file Legal Sex Female 4:32 PM CDT Gender Identity Not on file Sexual Orientation Not on file documented as of this encounter Miscellaneous Notes * Cerner Conversion Note - Delvin ProviderMD - 08/14/2021 4:00 PM CDT Initial Discharge Planning Entered On: 08/15/2021 8:28 EDT Performed On: 08/14/2021 16:00 EDT by ALFREDO SEQUEIRA, RN-Plant Quality Manager Initial Assessment I Previously Documented Living Environment : No qualifying data available. Living Situation : Home Patient Lives With : Alone Is the Patient a Caregiver at Home? : No Emergency Contact #1 : Urszula De La Garza Emergency Contact #1 Emergency Contact #1 Relationship : Daughter Emergency Contact #2 : Mariann Leif Emergency Contact #2 Emergency Contact #2 Relationship : Daughter Enter Doctors Name : demetrice saldaña Does Patient have PCP Listed? : Yes Patient's Home Caregiver Name/Relationship : Urszula De La Garza Patient's Home Caregiver Medical Durable Power of Stage Driver Name : No Legal Guardian : No ALFREDO SEQUEIRA RN-Plant Quality Manager - 08/15/2021 8:27 EDT Initial Assessment II Sensory and Motor Deficits : None Current Home Treatments and Equipment : None ALFREDO SEQUEIRA RN-Plant Quality Manager - 08/15/2021 8:27 EDT Discharge Needs I Anticipated Discharge Date : 08/16/2021 EDT Anticipated Discharge To, CM : Home with home health, Home with infusion therapy Current Home Treatment/Equipment : Current Home Treatment/Equipment No qualifying data available. Post Acute/Home Treatments : None Documentation Status Complete : Yes ALFREDO SEQUEIRA RN-Plant Quality Manager - 08/15/2021 8:27 EDT Discharge Needs II Professional Skilled Services : Professional Skilled Services No qualifying data available. Needs Assistance with Transportation : No Discharge Options Discussed with Patient : DME, Home Health, Short term rehabilitation ALFREDO SEQUEIRA RN-Plant Quality Manager - 08/15/2021 8:27 EDT Narrative Note Historical Narrative Note : rrs low boost 5 patient was admitted for staph infection /port removal . consults to neph, surg,ID. CHUCHO negative . patient 56 years old lives alone and is independent. patient face sheet address is wrong now address is : [address] [place]. patient denied need for dme. possible need for hh she thinks [facility] is the only one in her area. patient states she might need 4 weeks IV abx . patient is agreeable to hh and iv abx at home . cm will follow ALFREDO SEQUEIRA RN-Plant Quality Manager - 08/15/21 08:39:27 Narrative Note : rrs low boost 5 patient was admitted for staph infection /port removal . consults to neph, surg,ID. CHUCHO negative . patient 56 years old lives alone and is independent. patient face sheet address is wrong now address is : [address] [place]. patient denied need for dme. possible need for hh she thinks [facility] is the only one in her area. patient states she might need 4 weeks IV abx . patient is agreeable to hh and iv abx at home . family will transport . cm will follow HUA, ALFREDO K, RN-Plant Quality Manager - 08/15/2021 8:40 EDT Electronically signed by Lanny [facility] Conversion Physician Practice Administrator Cerner at 03/09/2023 8:51 PM CDT documented in this encounter Plan of Treatment Not on file documented as of this encounter Visit Diagnoses Not on filedocumented in this encounter Care Teams Butter Wrapper Relationship Specialty Start Date End Date Reji Saldaña MD [address] [place] [id number] PCP - General Adolescent Medicine 10/02/22 documented as of this encounter
--- OUTSIDE RECORDS SUMMARY | 2025-05-03 08:50 | XMS_ITS | Encounter Summary ---
Author Organization [employer] Address [address] [place] [address] Care Team Providers Care [employer] Principal Name Role Phone Reji Catsro MD Primary Care Provider [phone] Encounter Details Date Type Department Care Team (Late st Contact Info) Description 08/14/2021 Transcribed Document [facility] [place] Family Medicine [facility] [place] [address] ProviderDelvin MD [facility] [place] [address] Social History Tobacco Use Types Packs/Day Years Used Date Smoking Tobacco: Never Assessed Comments Unknown Sex and Gender Information Value Date Recorded Sex Assigned at Not on file Legal Sex Female 4:32 PM CDT Gender Identity Not on file Sexual Orientation Not on file documented as of this encounter Miscellaneous Notes * Cerner Conversion Note - Delvin ProviderMD - 08/14/2021 2:00 AM CDT Professor Of Journalism Details Entered On: 08/14/2021 6:50 EDT Performed On: 08/14/2021 2:00 EDT by Pau Armstrong RN - International Order Details Transport Mode Order Detail : Ambulatory Isolation Precautions Order Detail : Standard Precautions Order Detail : 0 Lift/Transfer : Independent Central Line Order Detail : No Room Service : Appropriate Arterial Line : No Patient Needs Meds Crushed/Liquid : No Pau Armstrong RN - International - 08/14/2021 6:49 EDT documented in this encounter Plan of Treatment Not on file documented as of this encounter Visit Diagnoses Not on filedocumented in this encounter Care Teams [employer] Principal Relationship Specialty Start Date End Date Reji Castro MD [address] [place] [id number] PCP - General Adolescent Medicine 10/02/22 documented as of this encounter
--- OUTSIDE RECORDS SUMMARY | 2025-05-03 08:50 | XMS_ITS | Encounter Summary ---
Author Organization [employer] Address [address] [place] [address] Care Team Providers Care Box Closing Machine Operator Name Role Phone Reji Castro MD Primary Care Provider [phone] Encounter Details Date Type Department Care Team (Late st Contact Info) Description 08/20/2021 Transcribed Document [facility] [place] Family Medicine [address] [place] [address] ProviderDelvin MD [address] [place] [address] Social History Tobacco Use Types Packs/Day Years Used Date Smoking Tobacco: Never Assessed Comments Unknown Sex and Gender Information Value Date Recorded Sex Assigned at Not on file Legal Sex Female 4:32 PM CDT Gender Identity Not on file Sexual Orientation Not on file documented as of this encounter Miscellaneous Notes * Cerner Conversion Note - Delvin ProviderMD - 08/20/2021 5:00 AM CDT Chart Check - Review Order Profile Entered On: 08/20/2021 6:39 EDT Performed On: 08/20/2021 5:00 EDT by Genna Gonsalez, RN Chart Check Powerplans Initiated/Discontinued as Appropriate : Yes All Active Orders Reviewed : Yes Genna Gonsalez RN - 08/20/2021 6:39 EDT documented in this encounter Plan of Treatment Not on file documented as of this encounter Visit Diagnoses Not on filedocumented in this encounter Care Teams Box Closing Machine Operator Relationship Specialty Start Date End Date Reji Castro MD [address] [place] [id number] PCP - General Adolescent Medicine 10/02/22 documented as of this encounter
--- OUTSIDE RECORDS SUMMARY | 2025-05-03 08:50 | XMS_ITS | Encounter Summary ---
Author Organization [employer] Address [address] [place] [address] Care Team Providers Care Water System Operator Name Role Phone Reji Castro MD Primary Care Provider [phone] Encounter Details Date Type Department Care Team (Late st Contact Info) Description 08/15/2021 Transcribed Document [facility] [place] Family Medicine [facility] [place] [address] ProviderDelvin MD [address] [place] [id number] Social History Tobacco Use Types Packs/Day Years Used Date Smoking Tobacco: Never Assessed Comments Unknown Sex and Gender Information Value Date Recorded Sex Assigned at Not on file Legal Sex Female 4:32 PM CDT Gender Identity Not on file Sexual Orientation Not on file documented as of this encounter Miscellaneous Notes * Cerner Conversion Note - Delvin Celestin MD - 08/15/2021 11:22 AM CDT Patient: IRINA TAMAYO Age: 56 years Sex: Female : 1965 Associated Diagnoses: None Author: Andrea Moraes, Resident Pharmacist Pharmacy Consult - Warfarin HPI: 56 y/o F presenting to [facility] with history of COPD, atrial fibrillation, CKD unknown stage, DMII, chronic anemias, CAD, & mitral valve mechanical valve. Port in left chest resulting positive blood cultures at check up. Pharmacy consulted to dose warfarin 2/2 atrial fibrillation. Indication: atrial fibrillation Consulting Provider: Dr. Jaimes - (hospitalist: Dr. Cuevas) Home Dose: warfarin 6 mg PO daily INR Goal: 2.5-3.5 Bridge Therapy: heparin gtt heparin gtt reinitiated per Clyde Corral PA-C given he held it 2/2 procedure on 08/14 d/w Dr. Cuevas: original goal INR 2-3, but should be 2.5-3.5 given mechanical MV + atrial fibrillation Drug Interactions: - MODERATE: warfarin + any of the following --> levothyroxine, pantoprazole, citalopram, cefazolin - may have POTENTIAL to increase side effects and/or bleeding risk of warfarin Medication List Ordered acetaminophen: 650 mg, Oral, Q6H, PRN: Pain (Mild 1-3). acetaminophen-hydrocodone: 1 Tab, Oral, Q6H, PRN: Pain (Moderate 4-6). albuterol: 3 mL, Nebulized Inhalation, RT_Q4H, PRN: Shortness of Breath. ALPRAZolam: 0.5 mg, Oral, TID, PRN: Anxiety. aspirin: 81 mg, Oral, Daily. ceFAZolin: 1 Gram, 50 mL, 100 mL/Hr, IV Piggyback, Q8HInt. citalopram: 40 mg, Oral, Daily. DAPTOmycin + Sodium Chloride 0.9% intravenous solution 50 mL: 700 mg, 14 mL, 128 mL/Hr, IV Piggyback, [id number]. docusate-senna: 1 Tab, Oral, BID. famotidine: 20 mg, Oral, At Bedtime. fentaNYL: 25 mcg, IV Push, Q4H, PRN: Pain (Severe 7-10). ferrous gluconate: 324 mg, Oral, Daily. folic acid: 1 mg, Oral, Daily. heparin 25,000 Units + NaCl 0.45% Premix Diluent 250 mL: Titrate, IntraVENous. hydrALAZINE: 10 mg, IV Push, Q4H, PRN: [...] 12.5 mg, IV Push, Q6H, PRN: Nausea. warfarin: 6 mg, Oral, Daily. Allergies (5) [...] (AUG 14 22:00) 97 (AUG 15 03:00) Labs (Last four charted values) WBC 7.1 (AUG 15) 6.7 (AUG 14) 5.5 (AUG 13) 5.5 (AUG 13) HB L 7.9 (AUG 15) L 8.0 (AUG 14) L 8.1 (AUG 13) L 8.5 (AUG 13) HCT L 26.7 (AUG 15) L 27.2 (AUG 14) L 26.9 (AUG 13) L 28.7 (AUG 13) Plt 197 (JUL 24) 210 (SEP 23) 206 (JUL 22) 197 (AUG 13) Na 137 (JUL 24) L 135 (AUG 13) 136 (AUG 13) L 134 (AUG 12) K 4.4 (AUG 15) 4.2 (AUG 13) 4.5 (AUG 13) 3.6 (AUG 12) Cl 104 (AUG 15) 102 (AUG 13) 103 (AUG 13) L 98 (AUG 12) CO2 27 (AUG 15) 29 (AUG 13) 30 (AUG 13) 29 (AUG 12) BUN H 28 (JUL 24) H 35 (AUG 13) H 50 (AUG 13) H 69 (AUG 12) Cr H 1.80 (AUG 15) H 1.80 (AUG 13) H 1.60 (AUG 13) H 2.40 (AUG 12) Glu R H 139 (AUG 15) H 114 (AUG 13) 102 (AUG 13) H 134 (AUG 12) Ca 9.4 (AUG 15) 9.1 (AUG 13) 9.1 (AUG 13) 9.6 (AUG 12) Lactic .93 (AUG 12) L .73 (AUG 11) PT H 18.2 (AUG 15) H 17.2 (AUG 14) H 17.0 (AUG 14) H 16.3 (AUG 13) INR H 1.8 (AUG 15) H 1.7 (AUG 14) H 1.6 (AUG 14) H 1.6 (AUG 13) PTT H 39.6 (AUG 11) AST 19 (AUG 15) 18 (AUG 13) 17 (AUG 13) 16 (AUG 12) ALT 17 (AUG 15) 17 (AUG 13) 19 (AUG 13) 23 (AUG 12) ALK P 101 (AUG [...] 08/17 INR 1.8 1.7 1.6 1.7 1.8 Dose NO DOSE 6 mg 6 mg HOLD [7.5 mg] [7.5 mg] [6 mg] Bridge NONE heparin gtt heparin gtt HOLD heparin gtt Creatinine Clearance (Current Encounter/Past 24 Hours) Creatinine Level 1.80 mg/dL HI 08/15/2021 04:25 Bun/Creatinine 15.6 08/15/2021 04:25 Estimated Creatinine Clearance 29.42 mL/Min 08/14/2021 00:14 Intake & Output Totals Last 24 Hours (7a-7a) Input Total: 334 mL Output Total: 2100 mL Balance: -1766 mL A/P: 1.) Per Urbano Mena PA-C note: OK to restart blood thinners today (08/15) - heparin gtt resumed this AM - bolus given & titration based upon heparin protocol (indication: bridge therapy) - warfarin to resume this evening (08/15) 2.) INR today (08/15) is 1.8, which is subtherapeutic. Plan to continue with heparin gtt until INR within goal. - will give booster dose of warfarin 7.5 mg PO daily x2 days then resume warfarin 6 mg PO daily on Wednesday (08/17) - INR has been subtherapeutic since admission - given sporadic warfarin schedule, may take until middle of next week to reach goal INR 3.) D/w Dr. Cuevas: given mechanical MV & PMH atrial fibrillation - INR goal should be 2.5-3.5 4.) Daily PT/INR ordered. Goal INR 2.5-3.5. H/H trending down. Continue to monitor lab values & for s/sxs of bleeding. 5.) Possible drug interactions noted above. No major interactions at this time. 6.) Pharmacy will continue to follow & monitor. Please reach out with any questions. Thank you, Andrea Moraes, PharmD PGY1 Regulatory Compliance Director Pager: [phone], Ext. [phone] documented in this encounter Plan of Treatment Not on file documented as of this encounter Visit Diagnoses Not on filedocumented in this encounter Care Teams Water System Operator Relationship Specialty Start Date End Date Reji Castro MD [address] [place] [id number] PCP - General Adolescent Medicine 10/02/22 documented as of this encounter
--- OUTSIDE RECORDS SUMMARY | 2025-05-03 08:50 | XMS_ITS | Encounter Summary ---
Author Organization [employer] Address [address] [place] [address] Care Team Providers Care Mailroom Assistant Name Role Phone Reji Castro MD Primary Care Provider [phone] Encounter Details Date Type Department Care Team (Late st Contact Info) Description 08/11/2021 Transcribed Document [facility] [place] Family Medicine [address] [place] [address] ProviderDelvin MD [address] [place] [address] Social History Tobacco Use Types Packs/Day Years Used Date Smoking Tobacco: Never Assessed Comments Unknown Sex and Gender Information Value Date Recorded Sex Assigned at Not on file Legal Sex Female 4:32 PM CDT Gender Identity Not on file Sexual Orientation Not on file documented as of this encounter Miscellaneous Notes * Cerner Conversion Note - Delvin Celestin MD - 08/11/2021 8:26 PM CDT Consult Phone Call Documentation Entered On: 08/12/2021 9:32 EDT Performed On: 08/12/2021 8:33 EDT by Celina Wilder RN Phone Call for Consults Consult Phone Call/Page Attempt : First call Consult Reason : postetic mitral valve, persistant bactermia Physician Requesting Consult : REJI GUERRA MD Physician Requested for Consult : JEN MCKEON MD-CAR Provider Service Notified Name : Cardiology Physician Covering for Consult : CHELI BEASLEY MD-CAR Date and Time Call Returned : 08/12/2021 8:33 EDT Celina Wilder RN - 08/12/2021 9:32 EDT documented in this encounter Plan of Treatment Not on file documented as of this encounter Visit Diagnoses Not on filedocumented in this encounter Care Teams Mailroom Assistant Relationship Specialty Start Date End Date Reji Castro MD [address] [place] [id number] PCP - General Adolescent Medicine 10/02/22 documented as of this encounter
--- OUTSIDE RECORDS SUMMARY | 2025-05-03 08:50 | XMS_ITS | Encounter Summary ---
Author Organization [employer] Address [address] [place] [address] Care Team Providers Care Daycare Assistant Name Role Phone Reji Castro MD Primary Care Provider [phone] Encounter Details Date Type Department Care Team (Late st Contact Info) Description 08/11/2021 Transcribed Document [facility] [place] Family Medicine [address] [place] [address] ProviderDelvin MD [address] [place] [address] Social History Tobacco Use Types Packs/Day Years Used Date Smoking Tobacco: Never Assessed Comments Unknown Sex and Gender Information Value Date Recorded Sex Assigned at Not on file Legal Sex Female 4:32 PM CDT Gender Identity Not on file Sexual Orientation Not on file documented as of this encounter Miscellaneous Notes * Cerner Conversion Note - Delvin Celestin MD - 08/11/2021 8:27 PM CDT Consult Phone Call Documentation Entered On: 08/12/2021 9:33 EDT Performed On: 08/12/2021 8:40 EDT by Celina Wilder RN Phone Call for Consults Consult Phone Call/Page Attempt : First call Consult Reason : ? [email or web address] on ckd Physician Requesting Consult : REJI GUERRA MD Physician Requested for Consult : NIRALI OQUENDO MD Provider Service Notified Name : Nephrology Physician Covering for Consult : NIRALI OQUENDO MD Date and Time Call Returned : 08/12/2021 8:40 EDT Celina Wilder RN - 08/12/2021 9:33 EDT documented in this encounter Plan of Treatment Not on file documented as of this encounter Visit Diagnoses Not on filedocumented in this encounter Care Teams Daycare Assistant Relationship Specialty Start Date End Date Reji Castro MD [address] [place] [id number] PCP - General Adolescent Medicine 10/02/22 documented as of this encounter
--- OUTSIDE RECORDS SUMMARY | 2025-05-03 08:50 | XMS_ITS | Encounter Summary ---
Author Organization [employer] Address [address] [place] [address] Care Team Providers Care Mechanical Detailer Name Role Phone Reji Castro MD Primary Care Provider [phone] Encounter Details Date Type Department Care Team (Late st Contact Info) Description 08/25/2021 Transcribed Document [facility] [place] [address] [place] [address] ProviderDelvin MD [address] [place] [address] Social History Tobacco Use Types Packs/Day Years Used Date Smoking Tobacco: Never Assessed Comments Unknown Sex and Gender Information Value Date Recorded Sex Assigned at Not on file Legal Sex Female 4:32 PM CDT Gender Identity Not on file Sexual Orientation Not on file documented as of this encounter Miscellaneous Notes * Cerner Conversion Note - Delvin ProviderMD - 08/25/2021 10:48 AM CDT Meds to Bed Enrollment Entered On: 08/26/2021 11:11 EDT Performed On: 08/25/2021 10:48 EDT by Porfirio Caban, Furnace Helper Cert Lead Meds to Bed Enrollment Patient Enrollment Decision: : No/do not enroll in meds to bed program Reason for Declining Meds to Bed Program: : Prefer to use home pharmacy Porfirio Caban Furnace Helper Cert Lead - 08/26/2021 11:11 EDT documented in this encounter Plan of Treatment Not on file documented as of this encounter Visit Diagnoses Not on filedocumented in this encounter Care Teams Mechanical Detailer Relationship Specialty Start Date End Date Reji Castro MD [address] [place] [id number] PCP - General Adolescent Medicine 10/02/22 documented as of this encounter
--- OUTSIDE RECORDS SUMMARY | 2025-05-03 08:50 | XMS_ITS | Encounter Summary ---
Author Organization [employer] Address [address] [place] [address] Care Team Providers Care Bulk Receiver Name Role Phone Reji Castro MD Primary Care Provider [phone] Encounter Details Date Type Department Care Team (Late st Contact Info) Description 08/19/2021 Transcribed Document [facility] Radiology [address] [place] [address] Loren Solorzano MD [address] [place] [address] [place] [id number] Social History Tobacco Use Types Packs/Day Years Used Date Smoking Tobacco: Never Assessed Comments Unknown Sex and Gender Information Value Date Recorded Sex Assigned at Not on file Legal Sex Female 4:32 PM CDT Gender Identity Not on file Sexual Orientation Not on file documented as of this encounter Miscellaneous Notes * Cerner Conversion Note - Loren Solorzano MD - 08/19/2021 12:23 PM EDT Patient: IRINA TAMAYO Age: 56 years Sex: Female : 1965 Associated Diagnoses: None Author: LOREN SOLORZANO MD-INT Subjective Small amount of bleeding at the site of Port-A-Cath. Off heparin drip. Discussed with her daughter at the bedside. Review of Systems Constitutional: No fever, No chills. Eye: Negative. Ear/Nose/Mouth/Throat: Negative. Respiratory: Negative. Cardiovascular: No chest pain. Gastrointestinal: No nausea, No vomiting, No diarrhea. Genitourinary: No dysuria. Hematology/Lymphatics: Negative. Endocrine: Negative. Immunologic: No recurrent fevers. Musculoskeletal: No back pain. Integumentary: No rash. Neurologic: Negative. Psychiatric: Negative. Health Status Allergies: Allergic Reactions (Selected) Severity [...] 1 Gram, 100 mL/Hr, IV Piggyback, Q8HInt cefTRIAXone: 2 Gram, 100 mL/Hr, IV Piggyback, 1-Time diphenhydrAMINE: 25 mg, Oral, Q6H, PRN: Itching [...] Oral, BID, 180 Tab, 0 Refill(s), Medications (36) Active Scheduled: (16) aspirin 81 mg chew tab 81 mg 1 Tab, Oral, Daily bumetanide 1 mg tab 2 mg 2 Tab, Oral, BID ceFAZolin + NaCl 0.9% 100 mL 1 Gram, IV Piggyback, Q8HInt ceFAZolin + NaCl 0.9% 50 mL 1 Gram, IV Piggyback, Q8HInt cefTRIAXone 2 Gram, IV Piggyback, 1-Time citalopram 20 mg tab 40 mg 2 Tab, Oral, Daily famotidine 20 mg tab 20 mg 1 Tab, Oral, At Bedtime folic acid 1 mg tab 1 mg [...] 8.6/50 mg tab 1 Tab, Oral, BID sod ferric gluc cmplx + NaCl 0.9% 230 mL 250 mg 20 mL, IV Piggyback, Daily Continuous: (0) PRN: (20) acetaminophen 325 mg tab 650 mg 2 [...] tab 25 mg 1 Tab, Oral, Q6H diphenhydrAMINE 50 mg/1 mL inj 50 mg 1 mL, IV Push, On-CALL EPINEPHrine 1 mg/1 mL inj 1 mg 1 mL, IntraMuscular, On-CALL fentaNYL 100 mcg/2 mL inj 25 mcg [...] Bioprosthetic mitral valve replacement / SNOMED CT 081521714 / Confirmed Chronic kidney disease / SNOMED CT 2000302920 / Confirmed COPD - Chronic obstructive pulmonary disease / SNOMED CT 904488580 / Confirmed History of obstructive sleep apnea / IMO [id number] / Confirmed HLD - Hyperlipidemia / SNOMED CT 072259822 / Confirmed HTN - Hypertension / SNOMED CT 5836128269 / Confirmed Canceled: Atrial fibrillation / SNOMED CT 77105632, Active Problems (25) AIHA (autoimmune hemolytic anemia) [...] 24 hrs) Last Charted Minimum Maximum Temp 99.1 (AUG 19 06:30) 98 ([facility] [place] 00:00) 99.1 ([facility] [place] 06:30) Apical HR 87 ([facility] [place] 20:53) 87 ([facility] [place] 20:53) 87 ([facility] [place] 20:53) Mon HR 81 (AUG 19 06:30) 72 ([facility] [place] 21:00) 87 ([facility] [place] 15:27) Resp Rate 18 ([facility] [place] 06:30) 16 ([facility] [place] 00:00) 20 ([facility] [place] 18[facility]17) SBP 117 ([facility] [place] 06[facility]30) 94 ([facility] [place] 21:00) 120 ([facility] [place] 18:17[facility] DBP 67 ([facility] [place] 06:30) L 55 ([facility] [place] 21:00) 67 ([facility] [place] 06[facility]30) MAP 85 ([facility] [place] 06[facility]30) 67 ([facility] [place] 21:00) 87 ([facility] [place] 18:17) SpO2 98 (AUG 19 06:30) L 88 (AUG 18 20:00) 98 (AUG 19 06:30) General: Alert and oriented, No acute distress. Eye: Pupils are equal, round and reactive to light, Extraocular movements are intact, Normal conjunctiva. HENT: Normocephalic. Neck: Supple, Non-tender. Respiratory: Breath sounds are equal, poor air entry b/l. , Port in place with small amount of bleeding at the site. Cardiovascular: Normal rate, Mechanical click heard. . Gastrointestinal: Soft, Non-tender, Non-distended, Normal bowel sounds. Genitourinary: No costovertebral angle tenderness. Musculoskeletal: Normal range of motion, No tenderness. Integumentary: Warm, No rash. Neurologic: Alert, Oriented, No focal deficits. Psychiatric: Cooperative, Appropriate mood & affect. Review / Management No qualifying data available Radiology Results (Last 48 hours) [id number] -- 08/11/2021 21:21 CR Chest 1 Vw Portable (08/19/2021 09:10) Result: PORTABLE CHEST; HISTORY: Line placement.COMPARISON: August 11, 2021.FINDINGS: A right-sided chest port terminates in the SVC. The patient isstatus post median sternotomy for prior CABG. The heart is enlarged andstable in size. The mediastinum is unremarkable. There is pulmonaryvascular congestion with prominent interstitial markings that appearunchanged. There is no pleural effusion There is no pneumothorax. IMPRESSION: Pulmonary vascular congestion with stable prominentinterstitial markings.Right chest port terminates in the SVC.Images reviewed, interpreted, and dictated by Dr. Gustavo Prajapati.Transcribed by Mena Lopez PA-C. Results review: Labs (Last four charted values) WBC 7.0 (AUG 18) 6.4 (AUG 17) 7.1 (AUG 15) 6.7 (AUG 14) HB L 7.7 (AUG 18) L 7.5 (AUG 17) L 7.5 (AUG 16) L 7.9 (AUG 15) HCT L 26.2 (AUG 18) L 25.4 (AUG 17) L 25.9 (AUG 16) L 26.7 (AUG 15) Plt 207 (AUG 18) 195 (AUG 17) 197 (AUG 15) 210 (AUG 14) Na L 134 (AUG 18) L 135 (AUG 17) 137 (AUG 16) 137 (JUL 24) K 4.6 (AUG 18) 4.4 (SEP ) 4.4 (SEP 25) 4.4 (JUL 24) Cl 105 (AUG 18) 104 (AUG 17) 106 (AUG 16) 104 (JUL 24) CO2 28 (AUG 18) 27 (SEP ) 25 (SEP ) 27 (JUL 24) BUN 18 (AUG 18) 18 (AUG 17) H 23 (AUG 16) H 28 (AUG 15) Cr H 1.40 (AUG 18) H 1.20 (AUG 17) H 1.40 (AUG 16) H 1.80 (AUG 15) Glu R H 137 (AUG 18) H 126 (AUG 17) H 112 (AUG 16) H 139 (AUG 15) Ca 8.8 (AUG 18) 8.9 (AUG 17) 9.5 (AUG 16) 9.4 (AUG 15) Lactic .93 (AUG 12) L .73 (AUG 11) PT H 13.6 (AUG 18) H 14.6 (AUG 17) H 17.2 (AUG 16) H 18.2 (AUG 15) INR H 1.3 (AUG 18) H 1.4 (AUG 17) H 1.7 (AUG 16) H 1.8 (AUG 15) PTT H 39.6 (JUL 20) AST 17 (AUG 18) 19 (JUL 24) 18 (AUG 13) 17 (AUG 13) ALT L 12 (AUG 18) 17 (JUL 24) 17 (AUG 13) 19 (AUG 13) ALK P 110 (AUG 18) 101 (JUL 24) 102 (AUG 13) 102 (AUG 13) T Bili 0.6 (AUG 18) 0.4 (JUL 24) 0.4 (AUG 13) 0.5 (AUG 13) PTN 6.8 (AUG 18) 7.0 (SEP 24) 7.3 (SEP ) 6.9 (AUG 13) ALB 3.9 (AUG 18) 3.5 (SEP 24) 3.8 (SEP ) 3.9 (SEP ) Lipase 224 (AUG 13) Troponin <0.015 (AUG 12) <0.015 (JUL 20) <0.015 (JUL 20) . Medication Changes from Previous Midnight to Current New Medications: bumetanide (Bumex) 2 mg, Oral, Tab, BID, NOW, Start 09/27/21 18:34:00 EDT, 08/18/21 18:34:00 EDT JENNA BULL MD ceFAZolin + Sodium Chloride 0.9% intravenous solution 100 mL 1 Gram, IV Piggyback, Inj, Q8HInt, infuse over 30 Minute(s), Routine, Start 08/18/21 17:00:00 EDT, Stop 08/19/21 16:59:00 EDT, 200 mL/Hr, Indication: Endocarditis LISA RICKETTS MD-INF ceFAZolin + Sodium Chloride 0.9% intravenous solution 50 mL 1 Gram, IV Piggyback, Inj, Q8HInt, infuse over 30 Minute(s), Start 08/19/21 17:00:00 EDT, 100 mL/Hr, Indication: Other-See Comment LISA RICKETTS MD-INF cefTRIAXone 2 Gram, IV Piggyback, Inj, 1-Time, infuse over 30 Minute(s), Routine, Start 08/19/21 9:00:00 EDT, Stop 08/19/21 9:00:00 EDT, 100 mL/Hr, Indication: Bacteremia/Line Infection LISA RICKETTS MD-INF Discontinued Medications: ceFAZolin + Sodium Chloride 0.9% intravenous solution 50 mL 1 Gram, IV Piggyback, Inj, Q8HInt, infuse over 30 Minute(s), Routine, Start 08/16/21 9:00:00 EDT, 100 mL/Hr, Indication: Endocarditis LISA RICKETTS MD-INF Lactated Ringers Injection intravenous solution 1,000 mL 1,000 mL, Bag Volume (mL) = 1,000, IntraVENous, Rate = 20 mL/Hr, start date 08/14/21 7:21:00 EDT, Routine, 1.98, m2 LOREN SOLORZANO MD-INT Impression and Plan # MSSA bacteremia cultures positive from OSH Patient has mitral valve replacement as well as multiple sites of metal in her body?CHUCHO neg for endocarditis ID following: Cefazolin, Daptomycin?will need IV antibiotics until at least 09/08 Received 2 dose vancomycin Port removed 9/23. Catheter tip cultures pending Repeat blood cx NGTD NPO AMN S/P Port-A-Cath placement 08/18/2021. Hold heparin drip due to bleeding at the site of the surgery. Resume Coumadin tonight. Discussed with pharmacy. Surgery following #Acute on chronic kidney disease III Suspect component of CKD, worsening with hypovolemia/dehydration Creatinine improving Nephrology following Avoid nephrotoxic medications Started on p.o. Bumex per nephrology today #Autoimmune hemolytic anemia Patient has been followed by hematology/oncology Monitor Hgb, transfuse as needed Iron supplementation, folic acid Status post multiple blood transfusions counted more than 180 Started on IV iron infusion #Chronic heart failure, A. fib, mechanical valve EF 55% INR subtherapeutic, 1.8?bridge with Heparin; goal INR 2.5-3.5 Aspirin, metoprolol Currently rate controlled Cardiology evaluated, signed off 08/14 bumex resumed. Continue hold spironolactone, valsartan due to borderline hypotension, TRISTAN #Diabetes Hold home meds SSI #Depression Celexa #Pain Quinton 10 mg every 6 hours as needed Dispo: Pending results of blood culture and final decisions by ID. Will definitely need IV abx, at least until 09/08. Also will be admitted until INR is therapeutic Time spent 25 minutes documented in this encounter Plan of Treatment Not on file documented as of this encounter Visit Diagnoses Not on filedocumented in this encounter Care Teams Bulk Receiver Relationship Specialty Start Date End Date Reji Castro MD [address] [place] [id number] PCP - General Adolescent Medicine 10/02/22 documented as of this encounter
--- OUTSIDE RECORDS SUMMARY | 2025-05-03 08:50 | XMS_ITS | Encounter Summary ---
Author Organization [employer] Address [address] [place] [address] Care Team Providers Care Cardroom Drawing Runner Name Role Phone Reji Castro MD Primary Care Provider [phone] Encounter Details Date Type Department Care Team (Late st Contact Info) Description 08/26/2021 Transcribed Document [facility] [place] [address] [place] [address] ProviderDelvin MD [address] [place] [address] Social History Tobacco Use Types Packs/Day Years Used Date Smoking Tobacco: Never Assessed Comments Unknown Sex and Gender Information Value Date Recorded Sex Assigned at Not on file Legal Sex Female 4:32 PM CDT Gender Identity Not on file Sexual Orientation Not on file documented as of this encounter Miscellaneous Notes * Cerner Conversion Note - Delvin ProviderMD - 08/26/2021 5:00 AM CDT Chart Check - Review Order Profile Entered On: 08/26/2021 4:16 EDT Performed On: 08/26/2021 5:00 EDT by Pamela Miguel, RN Chart Check Powerplans Initiated/Discontinued as Appropriate : Yes All Active Orders Reviewed : Yes Pamela Miguel RN - 08/26/2021 4:16 EDT Electronically signed by Lanny [facility] Conversion Biochemical Engineer Cerner at 03/09/2023 8:32 PM CDT documented in this encounter Plan of Treatment Not on file documented as of this encounter Visit Diagnoses Not on filedocumented in this encounter Care Teams Cardroom Drawing Runner Relationship Specialty Start Date End Date Reji Castro MD [address] [place] [id number] PCP - General Adolescent Medicine 10/02/22 documented as of this encounter
--- OUTSIDE RECORDS SUMMARY | 2025-05-03 08:50 | XMS_ITS | Encounter Summary ---
Author Organization [employer] Address [address] [place] [address] Care Team Providers Care Instrument Setter Name Role Phone Reji Castro MD Primary Care Provider [phone] Encounter Details Date Type Department Care Team (Late st Contact Info) Description 08/20/2021 Transcribed Document [facility] Radiology [address] [place] [address] Loren Solorzano MD [address] [place] [address] [address] [id number] Social History Tobacco Use Types Packs/Day Years Used Date Smoking Tobacco: Never Assessed Comments Unknown Sex and Gender Information Value Date Recorded Sex Assigned at Not on file Legal Sex Female 4:32 PM CDT Gender Identity Not on file Sexual Orientation Not on file documented as of this encounter Miscellaneous Notes * Cerner Conversion Note - Loren Solorzano MD - 08/20/2021 1:05 PM EDT Patient: IRINA TAMAYO Age: 56 years Sex: Female : 1965 Associated Diagnoses: None Author: LOREN SOLORZANO MD-INT Subjective Patient feeling better today. Out to chair. Review of Systems Constitutional: No fever, No [...] BID CeleXA: 40 mg, Oral, Daily Coumadin: 6 mg, Oral, Daily Dextrose 50% injection: 12.5 [...] cefTRIAXone: 2 Gram, 100 mL/Hr, IV Piggyback, [id number] diphenhydrAMINE: 25 mg, Oral, Q6H, PRN: Itching [...] Oral, BID, 180 Tab, 0 Refill(s), Medications (37) Active Scheduled: (15) aspirin 81 mg chew tab 81 mg 1 Tab, Oral, Daily bumetanide 1 mg tab 2 mg 2 Tab, Oral, BID cefTRIAXone 2 Gram, IV Piggyback, [id number] citalopram 20 mg tab 40 mg 2 [...] 250 mg 20 mL, IV Piggyback, Daily warfarin 3 mg tab 6 mg 2 Tab, Oral, Daily Continuous: (1) heparin/NaCl 0.45% 25,000 Units + Premix Diluent NaCl 0.45% 250 mL 250 mL, IntraVENous PRN: (21) acetaminophen 325 mg tab 650 mg 2 [...] Bioprosthetic mitral valve replacement / SNOMED CT 485396397 / Confirmed Chronic kidney disease / SNOMED CT 0732542197 / Confirmed COPD - Chronic obstructive pulmonary disease / SNOMED CT 631337373 / Confirmed History of obstructive sleep apnea / IMO 82931122 / Confirmed HLD - Hyperlipidemia / SNOMED CT 484629141 / Confirmed HTN - Hypertension / SNOMED CT 2278888180 / Confirmed Canceled: Atrial fibrillation / SNOMED CT 19196442, Active Problems (25) AIHA (autoimmune hemolytic anemia) [...] 24 hrs) Last Charted Minimum Maximum Temp 98 (AUG 20 11:00) 97.8 (AUG 20 05:45) 98.3 (AUG 19 18:30) Apical HR 76 (AUG 19 21:13) 76 (AUG 19 21:13) 76 (AUG 19 21:13) Mon HR 89 (AUG 20 11:00) 62 (AUG 19 15:00) 89 (AUG 19 23:30) Resp Rate 18 (AUG 20 11:00) 16 (AUG 20 04:24) 20 (AUG 19 18:30) SBP 127 (AUG 20 11:00) 98 (AUG 20 05:45) 127 (AUG 20 11:00) DBP 80 (AUG 20 11:00) L 46 (AUG 20 05:45) 80 (AUG 20 11:00) MAP 92 (AUG 20 11:00) 59 (AUG 20 05:45) 92 (AUG 20 11:00) SpO2 L 93 (AUG 20 11:00) L 92 (AUG 19 23:30) 97 (AUG 20 04:24) General: Alert and oriented, No acute distress. Eye: Pupils are equal, round and reactive to light, Extraocular movements are intact, Normal conjunctiva. HENT: Normocephalic. Neck: Supple, Non-tender. Respiratory: Breath sounds are equal, poor air entry b/l. , Port in place . Cardiovascular: Normal rate, Mechanical click heard. . Gastrointestinal: Soft, Non-tender, Non-distended, Normal bowel sounds. Genitourinary: No costovertebral angle tenderness. Musculoskeletal: Normal range of motion, No tenderness. Integumentary: Warm, No rash. Neurologic: Alert, Oriented, No focal deficits. Psychiatric: Cooperative, Appropriate mood & affect. Review / Management AUG 20 07:38 138 103 18 / H 125 3.9 29 H 1.40 \ AUG 20 07:38 \ L 7.7 / 8.1 210 / L 25.9 \ Radiology Results (Last 48 hours) [id number] -- 08/11/2021 21:21 CR Fluoro in OR (08/19/2021 08:15) Result: FLUOROSCOPY IN THE ORHISTORY: Staph infection.FINDINGS: Fluoroscopy was provided by the radiology department [id number] placement. 1 spot film was submittedFLUOROSCOPY TIME: 0.1 minutes.IMPRESSION:Port-A-Cath placement.Please see the operative report.Images reviewed, interpreted, and dictated by Dr. Gustavo Prajapati.Transcribed by Mena Lopez PA-C.I have personally viewed, interpreted and dictated the examination. Ihave read and agree with the above final transcribed report. CR Chest 1 Vw Portable (08/19/2021 09:10) [...] by Dr. Gustavo Prajapati.Transcribed by Mena Lopez PA-C.I have personally viewed, interpreted and dictated the examination. Karly read and agree with the above final transcribed report. Results review: Labs (Last four charted values) WBC 8.1 (AUG 20) H 10.8 (AUG 19) 7.0 (AUG 18) 6.4 (AUG 17) HB L 7.7 (AUG 20) L 7.2 (AUG 19) L 7.7 (AUG 18) L 7.5 (AUG 17) HCT L 25.9 (AUG 20) L 25.3 (AUG 19) L 26.2 (AUG 18) L 25.4 (AUG 17) Plt 210 (AUG 20) 207 (AUG 19) 207 (AUG 18) 195 (AUG 17) Na 138 (AUG 20) 137 (AUG 19) L 134 (AUG 18) L 135 (AUG 17) K 3.9 (AUG 20) 4.3 (AUG 19) 4.6 (AUG 18) 4.4 (AUG 17) Cl 103 (AUG 20) 105 (AUG 19) 105 (AUG 18) 104 (AUG 17) CO2 29 (AUG 20) 28 (AUG 19) 28 (AUG 18) 27 (AUG 17) BUN 18 (AUG 20) 16 (AUG 19) 18 (AUG 18) 18 (AUG 17) Cr H 1.40 (AUG 20) H 1.60 (AUG 19) H 1.40 (AUG 18) H 1.20 (AUG 17) Glu R H 125 (AUG 20) H 191 (AUG 19) H 137 (AUG 18) H 126 (AUG 17) Ca 9.1 (AUG 20) 9.2 (AUG 19) 8.8 (AUG 18) 8.9 (AUG 17) Lactic .93 (AUG 12) L .73 (AUG 11) PT H 13.5 (AUG 20) H 13.5 (AUG 19) H 13.6 (AUG 18) H 14.6 (AUG 17) INR H 1.3 (AUG 20) H 1.3 (AUG 19) H 1.3 (AUG 18) H 1.4 (AUG 17) PTT H 39.6 (SEP 20) AST 17 (AUG 18) 19 (AUG 15) [...] <0.015 (AUG 11) <0.015 (AUG 11) . Medication Changes from Previous Midnight to Current New Medications: cefTRIAXone 2 Gram, IV Piggyback, Inj, [id number], infuse over 30 Minute(s), Routine, Start 08/20/21 9:00:00 EDT, 100 mL/Hr, Indication: Bacteremia/Line Infection LISA RICKETTS MD-INF heparin 25,000 Units + NaCl 0.45% Premix Diluent 250 mL (heparin injection 25,000 Units + NaCl 0.45% Premix Diluent 250 mL) 250 mL, Bag Volume (mL) = 250, IntraVENous, start date 08/20/21 9:00:00 EDT, Routine, Titrate, 1.98, m2 LOREN SOLORZANO MD-INT polyethylene glycol 3350 (MiraLax) 17 Gram, Oral, Powder, Daily, PRN for Constipation, Routine, Start 08/20/21 11:16:00 EDT LOREN SOLORZANO MD-INT warfarin (Coumadin) 6 mg, Oral, Tab, Daily, Routine, Start 08/19/21 18:00:00 EDT, 08/11/21 20:44:00 EDT LOREN SOLORZANO MD-INT Discontinued Medications: ceFAZolin + Sodium Chloride 0.9% intravenous solution 100 mL 1 Gram, IV Piggyback, Inj, Q8HInt, infuse over 30 Minute(s), Routine, Start 08/18/21 17:00:00 EDT, Stop 08/19/21 16:59:00 EDT, 200 mL/Hr, Indication: Endocarditis LISA RICKETTS MD-INF Impression and Plan # MSSA bacteremia cultures positive from OSH Patient has mitral valve replacement as well as multiple sites of metal in her body?CHUCHO neg for endocarditis ID following: Cefazolin, Daptomycin?will need IV antibiotics until at least 09/08 Received 2 dose vancomycin Port removed 08/14. Catheter tip cultures pending Repeat blood cx NGTD NPO AMN S/P Port-A-Cath placement 08/18/2021. po Coumadin and IV heparin resumed Discussed with pharmacy. Surgery following #Acute on [...] Hold home meds SSI #Depression Celexa #Pain [place]feld 10 mg every 6 hours as needed Dispo: Given patient with history of multiple transfusion we will keep patient in the hospital on heparin drip and Coumadin till INR therapeutic need IV abx, at least until 09/08. Discussed with top case assembler. Time spent 25 minutes documented in this encounter Plan of Treatment Not on file documented as of this encounter Visit Diagnoses Not on filedocumented in this encounter Care Teams Instrument Setter Relationship Specialty Start Date End Date Reji Castro MD [address] [place] [id number] PCP - General Adolescent Medicine 10/02/22 documented as of this encounter
--- OUTSIDE RECORDS SUMMARY | 2025-05-03 08:50 | XMS_ITS | Encounter Summary ---
Author Organization [id number] Address [address] [place] [address] Care Team Providers Care Shorts Sifter Name Role Phone Reji Castro MD Primary Care Provider [phone] Encounter Details Date Type Department Care Team (Late st Contact Info) Description 08/20/2021 Transcribed Document [facility] [place] [facility] [place] [address] ProviderDelvin MD [facility] [place] [address] Social History Tobacco Use Types Packs/Day Years Used Date Smoking Tobacco: Never Assessed Comments Unknown Sex and Gender Information Value Date Recorded Sex Assigned at Not on file Legal Sex Female 4:32 PM CDT Gender Identity Not on file Sexual Orientation Not on file documented as of this encounter Miscellaneous Notes * Cerner Conversion Note - Delvin Celestin MD - 08/20/2021 11:21 AM CDT Patient: IRINA TAMAYO Age: 56 years Sex: Female : 1965 Associated Diagnoses: None Author: Andrea Moraes, Resident Pharmacist Pharmacy Consult - Warfarin HPI: 56 y/o F presenting to [facility] with history of COPD, atrial [...] cefTRIAXone: 2 Gram, 100 mL/Hr, IV Piggyback, [id number]. citalopram: 40 mg, Oral, Daily. diphenhydrAMINE: 50 mg, IV Push, On-CALL, PRN: Anaphylaxis. diphenhydrAMINE: 25 mg, Oral, Q6H, PRN: Itching. docusate-senna: 1 Tab, Oral, BID. EPINEPHrine: 1 mg, IntraMuscular, On-CALL, PRN: Anaphylaxis. famotidine: 20 mg, Oral, At Bedtime. fentaNYL: 25 mcg, IV Push, Q4H, PRN: Pain (Severe 7-10). folic acid: 1 mg, Oral, Daily. heparin [...] PRN: Nausea. pantoprazole: 40 mg, Oral, Daily. polyethylene glycol 3350: 17 Gram, Oral, Daily, PRN: Constipation. promethazine: 12.5 mg, IV Push, Q6H, PRN: Nausea. sodium ferric gluconate complex + Sodium Chloride 0.9% intravenous solution 230 mL: 250 mg, 20 mL, 125 mL/Hr, IV Piggyback, Daily. warfarin: 6 mg, Oral, Daily. Allergies (5) Active Reaction anabolic steroids Congestive heart failure Detrol Congestive heart failure Dye None Documented glipiZIDE Congestive heart failure metFORMIN Congestive heart failure BMI BMI: 32.7 Weight: 86.39kg - Standing scale Height: 162.56cm (5ft ) - Stated Vitals Signs (last 24 hrs) Last Charted Minimum Maximum Temp 98 (AUG 20 11:) 97.8 (AUG 20 05:45) 98.3 (AUG 19 18:30) Apical HR 76 (AUG 19 21:13) 76 (AUG 19 21:13) 76 (AUG 19 21:13) Mon HR 89 (AUG 20 11:00) 59 (AUG 19 11:22) 89 (AUG 19 23:30) Resp Rate 18 [...] (AUG 19 23:30) 97 (AUG 20 04:24) Labs (Last four charted values) WBC 8.1 [...] H 1.4 (AUG 17) PTT H 39.6 (AUG 11) AST 17 [...] heparin gtt Date 08/18 08/19 08/20 08/21 INR 1.3 1.3 1.3 Dose HOLD 6 mg [6 mg] Bridge *heparin gtt* to midnight NONE heparin gtt in AM [heparin gtt] Creatinine Clearance (Current Encounter/Past 24 Hours) Creatinine Level 1.40 mg/dL HI 08/20/2021 09:53 Bun/Creatinine 12.9 08/20/2021 08:13 Estimated Creatinine Clearance 37.82 mL/Min 08/20/2021 08:13 Intake & Output Totals Last 24 Hours (7a-7a) Input Total: 730 mL Output Total: 4175 mL Balance: -3445 mL A/P: 1.) Per Clyde Corral PA-C 08/20 note: s/p Port-A-Cath placement. OK to restart warfarin + heparin gtt. Signing off. 2.) D/w Dr. Solorzano at multidisciplinary rounds: tentative plan is keep patient in hospital until INR is therapeutic 3.) INR today (08/19) is 1.3, which is subtherapeutic. Will continue warfarin 6 mg PO daily + heparin gtt bridge until INR therapeutic. - INR has been subtherapeutic since admission 4.) Daily PT/INR ordered. Goal INR 2.5-3.5. H/H slightly up today (08/20) - still low. Continue to monitor closely for any s/sxs of bleeding. 5.) Possible drug interactions noted above - re-evaluated & updated accordingly prior to warfarin re-initiation yesterday (08/19). 6.) Pharmacy will continue to follow. Please reach out with any questions. Thank you, Andrea Moraes, PharmD PGY1 Packaging Manager Pager: [phone], Ext. [phone] Electronically signed by Lanny, [facility] Conversion Passenger Locomotive Engineer Cerner at 03/09/2023 8:58 PM CDT documented in this encounter Plan of Treatment Not on file documented as of this encounter Visit Diagnoses Not on filedocumented in this encounter Care Teams Shorts Sifter Relationship Specialty Start Date End Date Reji Castro MD [address] [place] [id number] PCP - General Adolescent Medicine 10/02/22 documented as of this encounter
--- OUTSIDE RECORDS SUMMARY | 2025-05-03 08:50 | XMS_ITS | Encounter Summary ---
Author Organization [employer] Address [address] [place] [address] Care Team Providers Care Bailing Machine Operator Name Role Phone Reji Castro MD Primary Care Provider [phone] Encounter Details Date Type Department Care Team (Late st Contact Info) Description 08/19/2021 Transcribed Document [facility] [place] [facility] [place] [address] ProviderDelvin MD [address] [place] [id number] Social History Tobacco Use Types Packs/Day Years Used Date Smoking Tobacco: Never Assessed Comments Unknown Sex and Gender Information Value Date Recorded Sex Assigned at Not on file Legal Sex Female 4:32 PM CDT Gender Identity Not on file Sexual Orientation Not on file documented as of this encounter Miscellaneous Notes * Cerner Conversion Note - Delvin Celestin MD - 08/19/2021 3:34 PM CDT On Going Discharge Planning Entered On: 08/19/2021 15:40 EDT Performed On: 08/19/2021 15:34 EDT by MADINA LOVETT, JEREMIAH - Guard ChiefRuffling Machine Operator Progress Note Discharge Arrangements : Patient Post-Acute [...] Rounds? : Yes MADINA LOVETT RN - Guard Chief - 08/19/2021 15:34 EDT Narrative Progress Note Narrative Progress Note : RRS Low Boost 5 Day 05/26 Patient was admitted for staph infection and port removal. She had a new port done on . 08/19. Patient needs to remain inpatient after surgery until her coumadin is at a therapeutic level per at [facility]. Waiting on culture results for final abx plan. May need IV abx at home via port. Patient will need home health and lvies in [place]. [facility] home health is a possibility. Historical Progress Note : RRS Low Boost [...] will need home health and lives in [place]. [facility] home health is a possibility. CM will continue to follow. DCP: MADINA LOVETT RN - Guard Chief - 08/18/21 15:47:49 (late entry from 08/15-) [...] follow and send referrals as appropriate. JULIO STEWART RN-Guard Chief ED - 08/18/21 10:38:39 BONY, MADINA, RN - Guard Chief - 08/19/2021 15:34 EDT Electronically signed by Lanny [facility] Conversion Supply Chain Tech Cerner at 03/09/2023 8:49 PM CDT documented in this encounter Plan of Treatment Not on file documented as of this encounter Visit Diagnoses Not on filedocumented in this encounter Care Teams Bailing Machine Operator Relationship Specialty Start Date End Date Reji Castro MD [address] [place] [id number] PCP - General Adolescent Medicine 10/02/22 documented as of this encounter
--- OUTSIDE RECORDS SUMMARY | 2025-05-03 08:50 | XMS_ITS | Encounter Summary ---
Author Organization [employer] Address [address] [place] [address] Care Team Providers Care Ict Support Engineer Name Role Phone Reji Castro MD Primary Care Provider [phone] Encounter Details Date Type Department Care Team (Late st Contact Info) Description 08/14/2021 Transcribed Document [facility] [place] [facility] [place] [address] ProviderDelvin MD [address] [place] [id number] Social History Tobacco Use Types Packs/Day Years [...] MD - 08/14/2021 7:45 AM CDT [facility] Main OR IntraOp Summary Primary Physician: NENA PEARSON MD-SUR Finalized Date/Time: 08/18/21 09:41:55 Pt. Name: TAMAYO IRINAGE Solis/Sex: 1965 Female Med Rec #: [id number] Physician: VINCE BELLO MD Financial #: [id number] Pt. Type: I Room/Bed: [facility]/ Admit/Disch: 08/11/21 21:21:00 - Institution: [facility] IntraOp Case Attendance Entry 1 Entry 2 Entry 3 Case Attendee NENA PEARSON MD-SUR Montgomery, Hazel, RN Poe, Kali, RN Role Performed Surgeon/Proceduralist, Float Phlebotomist, First Float Phlebotomist, Second First Time In 08/14/21 07:34:00 08/14/21 07:34:00 08/14/21 07:34:00 Time Out 08/14/21 08:17:00 08/14/21 08:17:00 08/14/21 08:17:00 Procedure Vascular Access Removal Vascular Access Removal Vascular Access Removal Other Attendee orient Superficial Wound Closed By: Last Modified By: Erika Montgomery, Erika Chand, Erika Chand, JEREMIAH 08/14/21 08:22:17 08/14/21 08:22:17 08/14/21 08:22:17 Entry 4 Entry 5 Entry 6 Case Attendee Randee Swain, Scrub TAMELA PRITCHETT, [employer] BORIS VEGAS Tech MD-ANS Role Performed Scrub, First [employer]/Nurse Hydrotreater Operator Anesthesiologist of Record Time In 08/14/21 07:34:00 08/14/21 07:34:00 08/14/21 07:34:00 Time Out 08/14/21 08:17:00 08/14/21 08:17:00 08/14/21 08:17:00 Procedure Vascular Access Removal Vascular Access Removal Vascular Access Removal Other Attendee Superficial Wound Closed By: Last Modified By: Erika Montgomery, Erika Chand, Erika Chand, JEREMIAH 08/14/21 08:22:17 08/14/21 08:22:17 08/14/21 08:22:17 Entry 7 Case Attendee OTHER, ATTENDEE #1 Role Performed [employer]/Nurse Hydrotreater Operator Time In 08/14/21 07:34:00 Time Out 08/14/21 08:17:00 Procedure Vascular Access Removal Other Attendee JOEY HOBBS [employer] STUDENT Superficial Wound Closed By: Last Modified By: Erika Montgomery RN 08/14/21 10:50:59 [facility] IntraOp Case Attendance Audit 08/14/21 10:50:59 Sustainability Analyst: LIAM Modifier: LIAM 7 <*> Procedure Vascular Access Removal 7 <*> Other Attendee JOEY PROCTOR [employer] STUDENT 08/14/21 08:24:52 Sustainability Analyst: LAFAVEHM Modifier: LAFAVEHM <+> 7 Case Attendee <+> 7 Role Performed <+> 7 Time In <+> 7 Time Out <+> 7 Procedure <+> 7 Other Attendee 08/14/21 08:22:17 Sustainability Analyst: LAFAVEHM Modifier: LAFAVEHM 1 <+> Time In 1 <+> Time Out 1 <*> Procedure Vascular Access Removal 2 <+> Time In 2 <+> Time Out 2 <*> Procedure Vascular Access Removal 3 <+> Time In 3 <+> Time Out 3 <*> Procedure Vascular Access Removal 4 <+> Time In 4 <+> Time Out 4 <*> Procedure Vascular Access Removal 5 <+> Time In 5 <+> Time Out 5 <*> Procedure Vascular Access Removal 6 <+> Time In 6 <+> Time Out 6 <*> Procedure Vascular Access Removal [facility] IntraOp Case Times Entry 1 Patient In Room Time 08/14/21 07:34:00 Out Room Time 08/14/21 08:17:00 Anesthesia Start Time 08/14/21 07:34:00 Stop Time 08/14/21 08:17:00 Surgery / Procedure Times Start Time 08/14/21 07:45:00 Stop Time 08/14/21 08:08:00 Last Modified By: Erika Montgomery RN 08/14/21 08:17:16 [facility] IntraOp Case Times Audit 08/14/21 08:17:16 Sustainability Analyst: LAFAVEHM Modifier: LAFAVEHM <+> 1 Out Room Time <+> 1 Stop Time <+> 1 Stop Time 08/14/21 07:46:45 Sustainability Analyst: LAFAVEHM Modifier: LAFAVEHM <+> 1 Start Time [facility] IntraOp Cautery Entry 1 ESU Identification Cautery Type Monopolar ESU ID Number [id number] ID Type Hospital Number Cautery Settings Cut Setting 30 Coag Setting 30 ESU Grounding Pad Ground Pad Type Reusable electrode pad Grounding Pad Type MEGADYNE PAD Comment Grounding Pad Site Posterior Grounding Pad Site Warm, dry and intact Skin Condition Before Cautery Grounding Pad Site Unchanged Skin Condition After Cautery Last Modified By: Erika Montgomery RN 08/14/21 07:19:50 [facility] IntraOp Communication Entry 1 Communication To Family/Significant other Communication By Erika Montgomery RN Date and Time 08/14/21 07:47:00 Last Modified By: Erika Montgomery RN 08/14/21 07:47:41 [facility] IntraOp Counts Verification Entry 1 Procedure Vascular Access Removal Count Info Count Type Sponge, Sharps, Miscellaneous Counts Verification Baseline/pre-procedure Sequence Counts Performed By Count Performed By Randee Swain Scrub (Scrub) Tech Count Performed By Jj Mancuso RN (RN) Last Modified By: Erika Montgomery RN 08/14/21 07:18:54 [facility] IntraOp Counts Final Entry 1 Procedure Vascular Access Removal Final Count Info Count Type Sponge, Sharps, Miscellaneous Counts Verification Skin Closure/end of Sequence procedure Count Results Correct, surgeon notified Counts Performed By Count Performed By Randee Swain Scrub (Scrub) Tech Count Performed By Jj Mancuso RN (RN) Last Modified By: Erika Montgomery RN 08/14/21 08:02:40 [facility] IntraOp Counts Final Audit 08/14/21 08:02:40 Sustainability Analyst: LIAM Modifier: LIAM 1 <*> Procedure Vascular Access Removal 1 <*> Count Type Sponge, Sharps, Miscellaneous 1 <*> Count Results Correct, surgeon notified 1 <+> Count Performed By (Scrub) 1 <+> Count Performed By (RN) 1 <*> Counts Verification Sequence Skin Closure/end of procedure [facility] IntraOp Cultures and Spec Summary Entry 1 Cultrures and Specimens Specimen Ordered: Yes Test(s) Culture(s)/Microbiology Requested/Final Disposition Last Modified By: Erika Montgomery RN 08/14/21 07:51:28 [facility] IntraOp Delays Entry 1 Delay Reason Other Duration 4 Minute(s) Comment MEDICATION DELAY Last Modified By: Erika Montgomery RN 08/14/21 07:49:40 [facility] IntraOp Departure from OR Entry 1 Integumentary Assessment Transfer/Handoff Transfer to Other Handoff Method Bedside/Face to face, Phone call, Online nursing summary Post-op Transport Stretcher/Roderick Via Patient Transport TAMELA PRITCHETT CRNA Accompanied by Transfer/Handoff RN REPORT ( ELEVATED Comments HOB WEIGHT OVER DRRESSING (IV BAG) RESTRICT USE LEFT ARM X [address] PEARSON. TRANSPORT TO FLOOR BY [facility] Last Modified By: Erika Montgomery RN 08/14/21 08:21:55 [facility] IntraOp Departure from OR Audit 08/14/21 08:21:55 Sustainability Analyst: LIAM Modifier: LAFBEAR 1 <*> Transfer/Handoff Comments TRANSPORT TO FLOOR BY [facility] 1 <+> Post-op Transport Via [facility] IntraOp Dressing and Packing Entry 1 Type Dressing Location L UPPER CHEST Wound Dressing Item 4x4's, Skin Closure Glue Other Comments PRESSURE DRESSING Last Modified By: Erika Montgomery RN 08/14/21 08:19:18 [facility] IntraOp Fire Risk Assessment Entry 1 Fire Info Surgical Site or 1- Yes Incision Above the Xyphoid Open O2 Source 1- Yes (Mask or Cannula) Available Ignition 1- Yes (ESU, Laser, Light Source) Fire Risk 3 Assessment Score Fire Score Fire Risk Yes Assessment Complete Fire Risk Erika Montgomery RN Assessment Verified By Fire Risk 08/14/21 07:34:00 Assessment Verified Date/Time Fire Risk High Risk Protocol Yes Implemented Last Modified By: Erika Montgomery RN 08/14/21 07:49:49 [facility] IntraOp Fire Risk Assessment Audit 08/14/21 07:49:49 Sustainability Analyst: LIAM Modifier: LAFAVEHM <+> 1 Fire Risk Assessment Verified Date/Time [facility] IntraOp General Case Manager Lsw 1 Case Information OR OR 08 [facility] Case Level 1 Room Verified Yes Wound Class I - Clean Specialty General Anesthesia Type MAC ASA Class 4 Diagnosis Preop Diagnosis INFECTED SANAM CATH Postop Same As Preop No Postop Diagnosis SEE MD POST OP NOTES Last Modified By: Erika Montgomery RN 08/14/21 07:52:14 [facility] IntraOp General Case Data Audit 08/14/21 07:52:14 Sustainability Analyst: LIAM Modifier: LAFRUSTYHM <+> 1 Preop Diagnosis [facility] IntraOp Intraoperative Assessment Entry 1 Handoff Method Bedside/Face to face, Phone call, Online nursing summary Valid History / Yes Physical in Chart Preoperative Yes Checklist Reviewed/Evaluated Allergies Reviewed Yes Patient is Latex No Sensitive Present Upon IVs Arrival to OR Last Modified By: Erika Montgomery RN 08/14/21 07:20:57 [facility] IntraOp Intraoperative Equipment Entry 1 Type Monitoring Equipment Equipment Juan Carlos Suction System Intraop Monitoring Antiembolic Devices Scopes Photo/Video Documentation Last Modified By: Erika Montgomery RN 08/14/21 07:21:08 [facility] IntraOp Medication Admin Entry 1 Medication/Irrigant lidocaine 1% w/ epinephrine 1:100,000 30ml vial - [id number] Route of LOCAL Administration Dose Dose 10 Unit of Measure ml Administered By NENA PEARSON MD-SUR Procedure Irrigation Last Modified By: Erika Montgomery RN 08/14/21 08:02:53 [facility] IntraOp Medication Admin Audit 08/14/21 08:02:53 Sustainability Analyst: LAFAVEHM Modifier: LAFAVEHM 1 <*> Medication/Irrigant lidocaine 1% w/ epinephrine 1:100,000 30ml vial - [id number] 1 <+> Dose [facility] IntraOp Patient Positioning Entry 1 Procedure Vascular Access Removal Body Position Supine Left Arm Position Tucked and padded at side Right Arm Position Tucked and padded at side Left Leg Position Uncrossed, parallel Right Leg Position Uncrossed, parallel Feet Uncrossed Yes Pressure Points Yes Checked Positioning Devices Head Rest, Pad, Elbow, Safety Strap, Thighs Device Position PILLOW UNDER KNEES FOR PATIENT COMFORT Positioned By NENA PEARSON MD-SUR, Erika Montgomery, JEREMIAH, Jj Mancuso, JEREMIAH, TAMELA PRITCHETT CRNA Position Verified Positioning Yes Verified by Anesthesia Positioning Yes Verified by Surgeon Last Modified By: Erika Montgomery RN 08/14/21 07:23:01 [facility] IntraOp Patient Positioning Audit 08/14/21 07:23:01 Sustainability Analyst: LAFAVEHM Modifier: LAFAVEHM 1 <*> Procedure Vascular Access Removal 1 <+> Positioning Verified by Anesthesia 1 <+> Positioning Verified by Surgeon 1 <+> Positioned By [facility] IntraOp Sign In Entry 1 Patient, Site, Yes Procedure Identified Surgical Consent Yes Confirmed Relevant Surgical Yes Documents Available Surgical Site Yes Marked by person performing procedure Anesthesia Machine Yes Check Completed Medication Checks Yes Completed Allergies Yes Airway Difficult Yes Airway/Aspiration Risk Difficult Yes Airway/Aspiration Intervention Equipment Available Blood Loss Risk Yes Blood Loss No Intervention Equipment Prepared and Ready Blood Identifiers Not applicable Verified Per Policy Hypothermia Risk Yes Warming Measures Yes Taken Last Modified By: Erika Montgomery RN 08/14/21 07:47:09 [facility] IntraOp Sign Out Entry 1 RN Confirmation Surgical Yes Procedure(s) Identified Instrument, Sponge Yes and Sharps Counts Correct/Documented Equipment Problems N/A Documented Specimen Labeled Yes Correctly Urinary Catheter N/A Documented in IView Hannon Patient Yes Recovery Concerns Reviewed with Anesthesia Provider, Surgeon and RN Hannon Patient Yes Management Concerns Reviewed with Anesthesia Provider, Surgeon and RN Safety Checklist Yes Elements Complete? RN Sign Out Erika Montgomery RN Signature RN Sign Out 08/14/21 08:22:00 Signature Date/Time Plan of Care Outcome - Fire Risk OUTCOME STATEMENT: Goal met Patient is free from injury related to surgical fire Plan of Care Outcome - Pt Positioning OUTCOME STATEMENT: Goal met Absence of signs and symptoms of positioning injury. Plan of Care Outcome - Skin Prep OUTCOME STATEMENT: Goal met Intraoperative care is consistent with measures to prevent infection Plan of Care Outcome - Xray/Images OUTCOME STATEMENT: N/A Absence of observable signs or symptoms of radiation injury Plan of Care Outcome - Counts OUTCOME STATEMENT: Goal met Absence of signs and symptoms of injury related to extraneous objects Last Modified By: Erika Montgomery RN 08/14/21 08:22:10 [facility] IntraOp Sign Out Audit 08/14/21 08:22:10 Sustainability Analyst: LIAM Modifier: LAFAVEHM <+> 1 RN Sign Out Signature Date/Time [facility] IntraOp Skin Prep Entry 1 Procedure Vascular Access Removal Prescribed Yes Pre-Surgical Prep Completed Prep Area CHEST INCLUDE LEFT SHOULDER Intraop Prep Prep Agents Chloraprep Prep by NENA PEARSON MD-TATYANA Hair Removal Methods No hair removal performed Last Modified By: Erika Montgomery RN 08/14/21 07:49:03 [facility] IntraOp Surgical Procedures Entry 1 Procedure Vascular Access Removal Additional (PORT A CATH REMOVAL) Procedure Description Primary Procedure Yes Primary Surgeon NENA PEARSON MD-TATYANA Start 08/14/21 07:45:00 Stop 08/14/21 08:08:00 Anesthesia Type MAC Specialty General Wound Class I - Clean Last Modified By: Erika Montgomeyr RN 08/14/21 08:22:14 General Comments: PATIENT ON SCHEDULED ANTIBIOTICS/ NO ADDITIONAL ANTIBIOTICS PER SURGEON [facility] IntraOp Surgical Procedures Audit 08/14/21 08:22:14 Sustainability Analyst: LIAM Modifier: LAFAVEHM 1 <*> Stop 08/14/21 07:48:13 Sustainability Analyst: LIAM Modifier: LIAM 1 <*> Start 1 <*> Start [facility] IntraOP Time Out Entry 1 Procedure to be Vascular Access Removal Performed Time Out Time Out Pause Time 08/14/21 07:43:00 All activity Yes suspended (unless life threatening emergency) Team Verbally Correct patient Confirms Information identity, Correct side and site are marked, Consent form is present and accurate, Agreement on the procedure to be done, Correct patient position, Relevant images/results properly labeled/appropriately displayed, Confirm antibiotics have been administered, Confirm the skin prep has dried, Performed in location of procedure after prepped/draped, Performed before each procedure if multiple procedures Antibiotic N/A Prophylaxis Administered Or In Progress Within the Last 60 Minutes Beta Alessandra Yes Administered Venous N/A Thromboembolism Prophylaxis Required Anticipated Critical Events Surgeon None expected Anesthesia Provider Patient specific concerns, None expected Nursing Assures Sterility of instruments Essential Imaging N/A Labeled and Displayed Last Modified By: Erika Montgomery RN 08/14/21 07:45:06 Case Comments <None> Finalized By: WILNER DUPONT Document Signatures Signed By: WILNER DUPONT 08/17/21 14:14 WILNER DUPONT 08/18/21 09:41 Unfinalized History Date/Time Username Reason for Unfinalizing Freetext Reason for Unfinalizing 08/18/21 09:39 WATTSDR Correct Billing documented in this encounter Plan of Treatment Not on file documented as of this encounter Visit Diagnoses Not on filedocumented in this encounter Care Teams Ict Support Engineer Relationship Specialty Start Date End Date Reji Castro MD [address] [place] [id number] PCP - General Adolescent Medicine 10/02/22 documented as of this encounter
--- OUTSIDE RECORDS SUMMARY | 2025-05-03 08:50 | XMS_ITS | Encounter Summary ---
Author Organization [employer] Address [address] [place] [address] Care Team Providers Care Intermediate School Teacher Name Role Phone Reji Castro MD Primary Care Provider [phone] Encounter Details Date Type Department Care Team (Late st Contact Info) Description 08/20/2021 Transcribed Document [facility] [place] [address] [place] [address] ProviderDelvin MD [facility] [address] Social History Tobacco Use Types Packs/Day Years Used Date Smoking Tobacco: Never Assessed Comments Unknown Sex and Gender Information Value Date Recorded Sex Assigned at Not on file Legal Sex Female 4:32 PM CDT Gender Identity Not on file Sexual Orientation Not on file documented as of this encounter Miscellaneous Notes * [employer]ner Conversion Note - Delvin ProviderMD - 08/20/2021 4:27 PM CDT Patient: IRINA TAMAYO Age: 56 Years Sex: Female : 1965 Subjective Seen and examined at bedside. No complaints. Feeling better. Vital Signs T: 36.7 ??C TMIN: 36.4 ??C TMAX: 37.1 ??C HR: 80(Monitored) RR: 18 BP: 96/50 SpO2: 94% HT: 162.56 cm WT: 92.93 kg BMI: 35.17 Oxygen Settings (Last) Oxygen Therapy Mode: Room air (08/20/21 08:00:00) Oxygen Flow Rate: 2 Liter/Min (08/20/21 05:45:00) Intake & Output Totals Last 24 Hours (7a-7a) Input Total: 730 mL Output Total: 4175 mL Balance: -3445 mL Hospital Course 56 year old female with NICM with [...] proteinuria.; Cr on this admission was 2.4-2.5mg/dl. Physical Exam General: No acute distress. Eye: Extraocular movements are intact. HENT: Normocephalic, Oral mucosa is moist. Neck: Supple, No jugular venous distention. Respiratory: Lungs are clear to auscultation, Symmetrical chest wall expansion. Cardiovascular: Normal rate. Edema: Bilateral, Lower extremity +1 . Gastrointestinal: Soft, Non-tender, Non-distended. Integumentary: Warm, Dry. Neurologic: Alert, Oriented. Psychiatric: Cooperative, Appropriate mood & affect, Normal judgment Assessment/Plan 1. TRISTAN on kidney disease stage III. TRISTAN in the setting of hemodynamic variation and sepsis. Creatinine better than suspected baseline at this time. Ureteral stent placement in 2013 and later removed. Cr on this admission was 2.4-2.5mg/dl. 2. MSSA bacteremia 3. Sepsis 4. Hx of left ureteral stent placement and left hydronephrosis in 2013 5. Afib 6. HTN 7. Autoimmune hemolytic anemia 8. Transfusion dependent anemia- T sat 6%. S/P IV iron. Recommendations: TRISTAN on CKD stage III. Baseline Cr 1.6mg/dl. Cr on this admit 2.4-2.5mg/dl now back to baseline. Cont on Bumex 2 mg bid for now; will add spironolactone 50 mg BID. On Rocephin for MSSA bacteremia. Labs reviewed; electrolytes stable. Monitor GFR adjust medications. VTE Prophylaxis - Medical Warfarin 6 mg, Oral, Tab, Daily, Routine, Start 08/19/21 18:00:00 EDT, 08/11/21 20:44:00 EDT (LOREN TENA) Sequential Compression Device Start: 08/11/21 20:26:00 EDT, Bilateral, Length: Knee High, While patient is in bed, Continuous Order (REJI GUERRA) Medications acetaminophen, 650 mg= 2 Tab, Oral, Q6H, PRN albuterol 2.5 mg/3 mL (0.083%) inhalation solution, 3 mL, Nebulized Inhalation , RT_Q4H, PRN ALPRAZolam, 0.5 mg= 1 Tab, Oral, TID, PRN aspirin, 81 mg= 1 Tab, Oral, Daily Bumex, 2 mg= 2 Tab, Oral, BID cefTRIAXone CeleXA, 40 mg= 2 Tab, Oral, Daily Coumadin, 6 mg= 2 Tab, Oral, Daily Dextrose 50% injection, 25 Gram= 50 mL, IV Push, Q15Min, PRN Dextrose 50% injection, 25 Gram= 50 mL, IV Push, Q15Min, PRN Dextrose 50% injection, 25 Gram= 50 mL, IV Push, Q15Min, PRN Dextrose 50% injection, 12.5 Gram= 25 mL, IV Push, Q15Min, PRN diphenhydrAMINE, 25 mg= 1 Tab, Oral, Q6H, PRN diphenhydrAMINE, 50 mg= 1 mL, IV Push, On-CALL, PRN docusate-senna 50 mg-8.6 mg oral tablet, 1 Tab, Oral, BID EPINEPHrine, 1 mg= 1 mL, IntraMuscular, On-CALL, PRN famotidine, 20 mg= 1 Tab, Oral, At Bedtime fentaNYL, 25 mcg= 0.5 mL, IV Push, Q4H, PRN Ferrlecit + Sodium Chloride 0.9% intravenous solution 230 mL folic acid, 1 mg= 1 Tab, Oral, [...] mg= 2 mL, IV Push, Q4H, PRN lactobacillus acidophilus, 1 Cap, Oral, Daily levothyroxine, 25 mcg= 1 Tab, Oral, Daily Milk of Magnesia 8% oral suspension, 30 mL, Oral, Daily, PRN MiraLax, 17 Gram= 1 Packet, Oral, Daily, PRN ondansetron, 4 mg= 2 mL, IV Push, Q4H, PRN pantoprazole, 40 mg= 1 Tab, Oral, Daily Percocet 10/325, 1 Tab, Oral, Q6H, PRN Phenergan, 12.5 mg= 0.5 mL, IV Push, Q6H, PRN spironolactone, 50 mg= 2 Tab, Oral, BID Toprol-XL, 25 mg= 1 Tab, Oral, QPM Lab Results Test Name Test Result Date/Time Sodium Level 138 mmol/L 08/20/2021 07:38 EDT Potassium Level 3.9 mmol/L 08/20/2021 07:38 EDT Chloride Level 103 mmol/L 08/20/2021 07:38 EDT Carbon Dioxide Level 29 mmol/L 08/20/2021 07:38 EDT Anion Gap 10 08/20/2021 07:38 EDT Glucose Level 125 mg/dL (High) 08/20/2021 07:38 EDT Blood Urea Nitrogen 18 mg/dL 08/20/2021 07:38 EDT Creatinine Level 1.40 mg/dL (High) 08/20/2021 07:38 EDT eGFR 47 mL/min/1.73m2 (Low) 08/20/2021 07:38 EDT eGFR NonAfrican 39 mL/min/1.73m2 (Low) 08/20/2021 07:38 EDT Bun/Creatinine 12.9 08/20/2021 07:38 EDT Calcium Level 9.1 mg/dL 08/20/2021 07:38 EDT Magnesium Level 1.9 mg/dL 08/20/2021 07:38 EDT Device Comment 1 Notified Nurse RBV 08/20/2021 15:52 EDT Device Comment 1 Notified Nurse RBV 08/20/2021 11:21 EDT Device Comment 1 Protocols Followed 08/20/2021 05:53 EDT Device Comment 1 Notified Nurse RBV 08/19/2021 20:56 EDT Glucose POC2 135 mg/dL (High) 08/20/2021 15:52 EDT Glucose POC2 136 mg/dL (High) 08/20/2021 11:21 EDT Glucose POC2 106 mg/dL 08/20/2021 05:53 EDT Glucose POC2 139 mg/dL (High) 08/19/2021 20:56 EDT WBC 8.1 K/uL 08/20/2021 07:38 EDT RBC 3.01 Million/uL (Low) 08/20/2021 07:38 EDT Hgb 7.7 g/dL (Low) 08/20/2021 07:38 EDT Hct 25.9 % (Low) 08/20/2021 07:38 EDT MCV 86.0 fL 08/20/2021 07:38 EDT MCH 25.6 pg 08/20/2021 07:38 EDT MCHC 29.7 Gram/dL (Low) 08/20/2021 07:38 EDT Platelet Count 210 K/uL 08/20/2021 07:38 EDT MPV 10.0 fL 08/20/2021 07:38 EDT RDW 20.5 % (High) 08/20/2021 07:38 EDT Neut % 82.0 % (High) 08/20/2021 07:38 EDT Neut # 6.66 K/uL (High) 08/20/2021 07:38 EDT Lymph % 4.7 % (Low) 08/20/2021 07:38 EDT Lymph # 0.38 x10(3)/uL (Low) 08/20/2021 07:38 EDT [place] % 7.9 % 08/20/2021 07:38 EDT [place] # 0.64 K/uL 08/20/2021 07:38 EDT Eos % 3.5 % 08/20/2021 07:38 EDT Eos # 0.28 x10(3)/uL 08/20/2021 07:38 EDT Baso % 0.4 % 08/20/2021 07:38 EDT Baso # 0.03 x10(3)/uL 08/20/2021 07:38 EDT RBC Morphology Abnormal 08/20/2021 07:38 EDT Anisocytosis 2+ (Abnormal) 08/20/2021 07:38 EDT Poikilocytosis 1+ (Abnormal) 08/20/2021 07:38 EDT Hypochromia 1+ (Abnormal) 08/20/2021 07:38 EDT Ovalocytes 1+ (Abnormal) 08/20/2021 07:[address] Estimate Adequate 08/20/2021 07:38 EDT Slide Review Technologist 08/20/2021 07:38 EDT IG# 0.12 x10(3)/uL (High) 08/20/2021 07:38 EDT IG% 1.50 % (High) 08/20/2021 07:38 EDT PT 13.5 Second(s) (High) 08/20/2021 07:38 EDT INR 1.3 (High) 08/20/2021 07:38 EDT PTT Heparin >139.0 Second(s) (Critical) 08/20/2021 15:16 EDT Electronically signed by [facility], [facility] Conversion Sink Maker Cerner at 03/09/2023 8:31 PM CDT documented in this encounter Plan of Treatment Not on file documented as of this encounter Visit Diagnoses Not on filedocumented in this encounter Care Teams Intermediate School Teacher Relationship Specialty Start Date End Date Reji Castro MD [address] [place] [id number] PCP - General Adolescent Medicine 10/02/22 documented as of this encounter
--- OUTSIDE RECORDS SUMMARY | 2025-05-03 08:51 | XMS_ITS | Encounter Summary ---
Author Organization [employer] Address [address] [place] [address] Care Team Providers Care Survey Worker Name Role Phone Reji Castro MD Primary Care Provider [phone] Encounter Details Date Type Department Care Team (Late st Contact Info) Description 08/12/2021 Transcribed Document [facility] [place] [address] [place] [address] ProviderDelvin MD [address] [place] [address] Social History Tobacco Use Types Packs/Day Years Used Date Smoking Tobacco: Never Assessed Comments Unknown Sex and Gender Information Value Date Recorded Sex Assigned at Not on file Legal Sex Female 4:32 PM CDT Gender Identity Not on file Sexual Orientation Not on file documented as of this encounter Miscellaneous Notes * Cerner Conversion Note - Historical ProviderMD - 08/12/2021 5:00 AM CDT Height and Weight, Routine Entered On: 08/12/2021 5:19 EDT Performed On: 08/12/2021 5:00 EDT by Morelia Jose, [facility] Unit Coord Height and Weight, Routine Routine Weight Source : Standing scale Routine Weight Entry Format : Ruston Routine Weight, Pounds : 223 lb Routine Weight, Ounces : 4 oz Routine Weight Calculation : 101.48 kg Height Source : Stated Height Entry Format : Ruston Height, Feet : 5 ft Height, Inches : 4 Inch Clinical Height : 162.56 cm Body Surface Area (BSA), Routine : 2.05 m2 Body Mass Index (BMI), Routine : 38.4 kg/m2 Morelia Jose, [facility] Unit Coord - 08/12/2021 5:18 EDT documented in this encounter Plan of Treatment Not on file documented as of this encounter Visit Diagnoses Not on filedocumented in this encounter Care Teams Survey Worker Relationship Specialty Start Date End Date Reji Castro MD [address] [place] [id number] PCP - General Adolescent Medicine 10/02/22 documented as of this encounter
--- OUTSIDE RECORDS SUMMARY | 2025-05-03 08:51 | XMS_ITS | Encounter Summary ---
Author Organization [employer] Address [address] [place] [address] Care Team Providers Care Assistant Professor Of German Name Role Phone Reji Castro MD Primary Care Provider [phone] Encounter Details Date Type Department Care Team (Late st Contact Info) Description 08/19/2021 Transcribed Document [facility] [place] [address] [place] [address] ProviderDelvin MD [address] [place] [id number] Social History Tobacco Use Types Packs/Day Years Used Date Smoking Tobacco: Never Assessed Comments Unknown Sex and Gender Information Value Date Recorded Sex Assigned at Not on file Legal Sex Female 4:32 PM CDT Gender Identity Not on file Sexual Orientation Not on file documented as of this encounter Miscellaneous Notes * Cerner Conversion Note - Delvin Celestin MD - 08/19/2021 7:51 AM CDT [facility] Main OR IntraOp Summary Primary Physician: NENA PEARSON MD-SUR Finalized Date/Time: 08/20/21 09:11:26 Pt. Name: TAMAYO IRINAGE Solis/Sex: 1965 Female Med Rec #: [id number] Physician: VINCE BELLO MD Financial #: [id number] Pt. Type: I Room/Bed: [facility]/ Admit/Disch: 08/11/21 21:21:00 - Institution: [facility] IntraOp Case Attendance Entry 1 Entry 2 Entry 3 Case Attendee NENA PEARSON MD-ERNESTO FISCHER APRN, BURBERRY, KEITH, MD-ANS VEHICLE DAMAGE APPRAISER Role Performed Surgeon/Proceduralist, VEHICLE DAMAGE APPRAISER/Nurse Under Sheriff Anesthesiologist of First Record Time In 08/19/21 07:29:00 08/19/21 07:29:00 08/19/21 07:29:00 Time Out 08/19/21 08:24:00 08/19/21 08:24:00 08/19/21 08:24:00 Procedure Vascular Access Vascular Access Vascular Access Insertion Insertion Insertion Other Attendee Superficial Wound Closed By: Last Modified By: Josh Rivera, Josh Perez, Josh Perez, JEREMIAH 08/19/21 08:35:46 08/19/21 08:35:46 08/19/21 08:35:46 Entry 4 Entry 5 Entry 6 Case Attendee YULIA JIM, SCRUB Josh Rivera, ALICIA SOTELO, MAILER/CSA TECH Role Performed Retail Maintenance Technician, First Wildlife Technician, First Scrub, First Time In 08/19/21 07:29:00 08/19/21 07:29:00 08/19/21 07:29:00 Time Out 08/19/21 08:24:00 08/19/21 08:24:00 08/19/21 08:24:00 Procedure Vascular Access Vascular Access Vascular Access Insertion Insertion Insertion Other Attendee Superficial Wound Closed By: Last Modified By: Josh Rivera, Josh Perez, Josh Perez, JEREMIAH 08/19/21 08:35:46 08/19/21 08:35:46 08/19/21 08:35:46 Entry 7 Case Attendee David Greene, Biller Role Performed Japanese Interpreter Time In 08/19/21 07:55:00 Time Out 08/19/21 08:07:00 Procedure Vascular Access Insertion Other Attendee Superficial Wound Closed By: Last Modified By: Josh Rivera RN 08/19/21 08:35:46 [facility] IntraOp Case Attendance Audit 08/19/21 08:35:46 Mechanical Door Repairer: JAZLYN Modifier: JAZLYN 1 <+> Time Out 1 <*> Procedure Vascular Access Insertion 2 <+> Time Out 2 <*> Procedure Vascular Access Insertion 3 <+> Time Out 3 <*> Procedure Vascular Access Insertion 4 <+> Time Out 4 <*> Procedure Vascular Access Insertion 5 <+> Time Out 5 <*> Procedure Vascular Access Insertion 6 <+> Time Out 6 <*> Procedure Vascular Access Insertion 7 <*> Procedure Vascular Access Insertion 08/19/21 08:07:27 Mechanical Door Repairer: JAZLYN Modifier: PANTANOS 1 <*> Procedure Vascular Access Insertion 2 <*> Procedure Vascular Access Insertion 3 <*> Procedure Vascular Access Insertion 4 <*> Procedure Vascular Access Insertion 5 <*> Procedure Vascular Access Insertion 6 <*> Procedure Vascular Access Insertion 7 <+> Time In 7 <+> Time Out 7 <*> Procedure Vascular Access Insertion 08/19/21 08:04:07 Mechanical Door Repairer: JAZLYN Modifier: PANTANOS <+> 7 Case Attendee <+> 7 Role Performed <+> 7 Procedure 08/19/21 08:00:27 Mechanical Door Repairer: JAZLYN Modifier: PANTANOS 1 <*> Procedure Vascular Access Insertion 2 <*> Procedure Vascular Access Insertion 3 <*> Procedure Vascular Access Insertion 4 <+> Time In 4 <*> Procedure Vascular Access Insertion 5 <+> Time In 5 <*> Procedure Vascular Access Insertion 6 <+> Time In 6 <*> Procedure Vascular Access Insertion 08/19/21 07:52:21 Mechanical Door Repairer: JAZLYN Modifier: PANTANOS <+> 1 Procedure 2 <+> Time In 2 <*> Procedure Vascular Access Insertion 3 <+> Time In 3 <*> Procedure Vascular Access Insertion <+> 4 Case Attendee <+> 4 Role Performed <+> 4 Procedure <+> 5 Case Attendee <+> 5 Role Performed <+> 5 Procedure <+> 6 Case Attendee <+> 6 Role Performed <+> 6 Procedure [facility] IntraOp Case Times Entry 1 Patient In Room Time 08/19/21 07:29:00 Out Room Time 08/19/21 08:24:00 Anesthesia Start Time 08/19/21 07:29:00 Stop Time 08/19/21 08:24:00 Surgery / Procedure Times Start Time 08/19/21 07:51:00 Stop Time 08/19/21 08:17:00 Last Modified By: Josh Rivera RN 08/19/21 08:24:22 [facility] IntraOp Case Times Audit 08/19/21 08:24:22 Mechanical Door Repairer: JAZLYN Modifier: MAKENNAANOS <+> 1 Out Room Time <+> 1 Stop Time <+> 1 Stop Time 08/19/21 07:51:02 Mechanical Door Repairer: JAZLYN Modifier: JUDITHS <+> 1 Start Time [facility] IntraOp Cautery Entry 1 ESU Identification Cautery Type Monopolar ESU ID Number [id number] ID Type Hospital Number Cautery Settings Cut Setting 30 Coag Setting 30 ESU Grounding Pad Ground Pad Type Adult Grounding Pad Site Right Buttock Grounding Pad Josh Rivera RN Applied By Grounding Pad Site Intact Skin Condition Before Cautery Grounding Pad Site Intact Skin Condition After Cautery Last Modified By: Josh Rivera RN 08/19/21 07:52:52 [facility] IntraOp Communication Entry 1 Communication To Family/Significant other Communication By Josh Rivera RN Last Modified By: Josh Rivera RN 08/19/21 07:58:45 [facility] IntraOp Counts Verification Entry 1 Procedure Vascular Access Insertion Count Info Count Type Sponge, Sharps, Miscellaneous Counts Verification Baseline/pre-procedure Sequence Count Results Correct, surgeon notified Counts Performed By Count Performed By ALICIA MACIAS SCRUB (Scrub) TECH Count Performed By Josh Rivera RN (RN) Last Modified By: Josh Rivera RN 08/19/21 07:53:18 [facility] IntraOp Counts Final Entry 1 Procedure Vascular Access Insertion Final Count Info Count Type Sponge, Sharps, Miscellaneous Counts Verification Skin Closure/end of Sequence procedure Count Results Correct, surgeon notified Counts Performed By Count Performed By ALICIA MACIAS SCRUB (Scrub) TECH Count Performed By Josh Rivera RN (RN) Last Modified By: Josh Rivera RN 08/19/21 07:53:41 [facility] IntraOp Departure from OR Entry 1 Integumentary Assessment Integumentary WDL Assessment WDL Transfer/Handoff Transfer to Nursing unit Handoff Method Bedside/Face to face, Online nursing summary Post-op Transport Stretcher/Roderick Via Patient Transport ERNESTO SOUSA APRN, Accompanied by VEHICLE DAMAGE APPRAISER Last Modified By: Josh Rivera RN 08/19/21 08:02:48 [facility] IntraOp Departure from OR Audit 08/19/21 08:02:48 Mechanical Door Repairer: JAZLYN Modifier: JAZLYN 1 <*> Transfer to Ambulatory unit, Phase II 1 <+> Patient Transport Accompanied by [facility] IntraOp Dressing and Packing Entry 1 Type Dressing Location OPSITE Wound Dressing Item Skin Closure Glue Applied By YULIA JIM SCRUB TECH/OCTAVIO Last Modified By: Josh Rivera RN 08/19/21 07:54:28 [facility] IntraOp Fire Risk Assessment Entry 1 Fire Info Surgical Site or 1- Yes Incision Above the Xyphoid Open O2 Source 1- Yes (Mask or Cannula) Available Ignition 1- Yes (ESU, Laser, Light Source) Fire Risk 3 Assessment Score Fire Score Fire Risk Yes Assessment Complete Fire Risk Josh Rivera RN Assessment Verified By Fire Risk 08/19/21 07:10:00 Assessment Verified Date/Time Fire Risk High Risk Protocol Yes Implemented Standard Fire Yes Safety Precautions Followed Last Modified By: Josh Rivera RN 08/19/21 07:53:55 [facility] IntraOp General Case Well Service Floor Worker 1 Case Information OR OR 06 [facility] Case Level 1 Room Verified Yes Wound Class I - Clean Specialty General ASA Class 4 Diagnosis Preop Diagnosis IV Access Postop Same As Preop Yes Postop Diagnosis IV Access Last Modified By: Josh Rivera RN 08/19/21 07:58:27 [facility] IntraOp Intraoperative Assessment Entry 1 Handoff Method Bedside/Face to face, Online nursing summary Valid History / Yes Physical in Chart Preoperative Yes Checklist Reviewed/Evaluated Allergies Reviewed Yes Patient is Latex No Sensitive Level of WDL Consciousness (WDL = Alert, Oriented to Person, Place, and Time) Skin Assessment Yes Verified Present Upon IVs, Oxygen Arrival to OR Last Modified By: Josh Rivera RN 08/19/21 07:59:09 [facility] IntraOp Intraoperative Equipment Entry 1 Type Monitoring Equipment Intraop Monitoring Electrocardiogram Three lead placement (ECG) Electrode Placement Blood Pressure Non-Invasive BP Device Source Blood Pressure Arm, right upper Location Pulse Oximeter Hand, left Probe Site Antiembolic Devices Scopes Photo/Video Documentation Last Modified By: Josh Rivera RN 08/19/21 07:59:29 [facility] IntraOp Medication Admin Entry 1 Entry 2 Medication/Irrigant LIDOCAINE 1% WITH EPI Heplock 100units/ml 5ml 1:100,000 vial - [id number] Combo Med List Time Administered 08/19/21 07:59:00 08/19/21 07:59:00 Route of LOCAL HEP LOCK Administration Dose Dose 30 10 Unit of Measure ml ml Volume Administered By PEARSON, CATALINAMESHA JOHN M, MD-SUR Procedure Irrigation Irrigant Volume In Irrigant Volume Out Last Modified By: Josh Rivera RN Pantano, Scott, RN 08/19/21 08:00:16 08/19/21 08:00:16 [facility] IntraOp Patient Positioning Entry 1 Procedure Vascular Access Insertion Body Position Supine Left Arm Position Tucked and padded at side Right Arm Position Tucked and padded at side Left Leg Position Uncrossed, parallel Right Leg Position Uncrossed, parallel Feet Uncrossed Yes Pressure Points Yes Checked Positioning Devices Head Rest, Safety Strap, Thighs, Roll, Shoulder Device Position UNP'S Positioned By NENA PEARSON MD-SUR, ERNESTO SOUSA APRN, HALINA, Josh Rivera RN Position Verified Positioning Yes Verified by Anesthesia Positioning Yes Verified by Surgeon Last Modified By: Josh Rivera RN 08/19/21 07:54:11 [facility] IntraOp Sign In Entry 1 Patient, Site, Yes Procedure Identified Surgical Consent Yes Confirmed Relevant Surgical Yes Documents Available Surgical Site N/A Marked by person performing procedure Anesthesia Machine Yes Check Completed Medication Checks Yes Completed Allergies Yes Airway Difficult Yes Airway/Aspiration Risk Difficult Yes Airway/Aspiration Intervention Equipment Available Blood Loss Risk No Blood Loss Yes Intervention Equipment Prepared and Ready Hypothermia Risk Yes Warming Measures Yes Taken Last Modified By: Josh Rivera RN 08/19/21 08:00:24 [facility] IntraOp Sign Out Entry 1 RN Confirmation Surgical Yes Procedure(s) Identified Instrument, Sponge Yes and Sharps Counts Correct/Documented Equipment Problems N/A Documented Specimen Labeled N/A Correctly Urinary Catheter N/A Documented in IView Hannon Patient Yes Recovery Concerns Reviewed with Anesthesia Provider, Surgeon and RN Hannon Patient Yes Management Concerns Reviewed with Anesthesia Provider, Surgeon and RN Safety Checklist Yes Elements Complete? RN Sign Out Josh Rivera RN Signature RN Sign Out 08/19/21 08:35:00 Signature Date/Time Plan of Care Outcome - [...] of Care Outcome - Xray/Images OUTCOME STATEMENT: Goal met Absence of observable signs or symptoms of radiation injury Plan of Care Outcome - Counts OUTCOME STATEMENT: Goal met Absence of signs and symptoms of injury related to extraneous objects Last Modified By: Josh Rivera RN 08/19/21 08:35:34 [facility] IntraOp Sign Out Audit 08/19/21 08:35:34 Mechanical Door Repairer: JAZLYN Modifier: PANTANOS <+> 1 RN Sign Out Signature <+> 1 RN Sign Out Signature Date/Time <+> 1 Urinary Catheter Documented in IView [facility] IntraOp Skin Prep Entry 1 Procedure Vascular Access Insertion Prescribed N/A Pre-Surgical Prep Completed Prep Area CHIN THRU CHEST INCLUDE BILATERAL SHOULDERS Intraop Prep Prep Agents Chloraprep Hair Removal Last Modified By: Josh Rivera RN 08/19/21 07:58:31 [facility] IntraOp Surgical Procedures Entry 1 Procedure Vascular Access Insertion Additional (PORT A CATH PLACEMENT) Procedure Description Primary Procedure Yes Primary Surgeon NENA PEARSON MD-TATYANA Start 08/19/21 07:51:00 Stop 08/19/21 08:17:00 Anesthesia Type MAC Specialty General Wound Class I - Clean Last Modified By: Josh Rivera RN 08/19/21 08:35:09 [facility] IntraOp Surgical Procedures Audit 08/19/21 08:35:09 Mechanical Door Repairer: JAZLYN Modifier: JUDITHS <+> 1 Stop [facility] IntraOp Temp Regulation Devices Entry 1 Temp Regulation Temperature Warm blankets Regulation Device Temperature Full body Regulation Site Temperature ERNESTO SOUSA APRN, Regulation Device VEHICLE DAMAGE APPRAISER Applied by Last Modified By: Josh Rivera RN 08/19/21 07:54:19 [facility] IntraOP Time Out Entry 1 Procedure to be Vascular Access Performed Insertion Time Out Time Out Pause Time 08/19/21 07:50:00 All activity Yes suspended (unless life threatening emergency) Team Verbally Correct patient Confirms Information identity, Correct side and site are marked, Consent form is present and accurate, Agreement on the procedure to be done, Correct patient position, Relevant images/results properly labeled/appropriately displayed, Confirm antibiotics have been administered, Confirm the skin prep has dried, Confirm prosthesis/implant/devic e is present, Performed in location of procedure after prepped/draped Antibiotic Yes Prophylaxis Administered Or In Progress Within the Last 60 Minutes Beta Alessandra Yes Administered Venous N/A Thromboembolism Prophylaxis Required Anticipated Critical Events Surgeon None expected, Critical or unexpected steps, Anticipated blood loss, Special equipment need Anesthesia Provider Patient specific concerns, None expected Nursing Assures Sterility of instruments, Equipment concerns or issues, Implant Availability Essential Imaging Yes Labeled and Displayed Last Modified By: Josh Rivera RN 08/19/21 08:02:27 [facility] IntraOP Time Out Audit 08/19/21 08:02:27 Mechanical Door Repairer: JAZLYN Modifier: PANTANOS 1 <+> Beta Alessandra Administered 1 <*> Procedure to be Performed Vascular Access Insertion 08/19/21 08:00:58 Mechanical Door Repairer: JAZLYN Modifier: PANTANOS 1 <+> All activity suspended (unless life threatening emergency) 1 <+> Venous Thromboembolism Prophylaxis Required 1 <+> Antibiotic Prophylaxis Administered Or In Progress Within the Last 60 Minutes 1 <+> Surgeon 1 <+> Anesthesia Provider 1 <+> Nursing Assures 1 <+> Essential Imaging Labeled and Displayed 1 <*> Procedure to be Performed Vascular Access Insertion 1 <+> Team Verbally Confirms Information 08/19/21 08:00:32 Mechanical Door Repairer: JAZLYN Modifier: PANTANOS <+> 1 Procedure to be Performed [facility] IntraOp X-Ray and Images Entry 1 X-Ray/Imaging Type Fluoroscopy Fluoroscopy Type C-Arm Site CHEST Pipe Puller Name David Greene, Biller Protective Devices Yes Used Last Modified By: Josh Rivera RN 08/19/21 08:04:48 Case Comments <None> Finalized By: WILNER DUPONT Document Signatures Signed By: Josh Rivera RN 08/19/21 08:35 WILNER DUPONT 08/20/21 09:11 Unfinalized History Date/Time Username Reason for Unfinalizing Freetext Reason for Unfinalizing 08/20/21 09:10 PAM Correct Billing Electronically signed by Lanny [facility] Conversion Information Security Associate Cerner at 03/09/2023 8:49 PM CDT documented in this encounter Plan of Treatment Not on file documented as of this encounter Visit Diagnoses Not on filedocumented in this encounter Care Teams Assistant Professor Of German Relationship Specialty Start Date End Date Reji Castro MD [address] [place] [id number] PCP - General Adolescent Medicine 10/02/22 documented as of this encounter
--- OUTSIDE RECORDS SUMMARY | 2025-05-03 08:51 | XMS_ITS | Encounter Summary ---
Author Organization [employer] Address [address] [place] [address] Care Team Providers Care Bus Greaser Name Role Phone Reji Castro MD Primary Care Provider [phone] Encounter Details Date Type Department Care Team (Late st Contact Info) Description 08/12/2021 Transcribed Document [facility] [place] [facility] [place] [address] ProviderDelvin MD [address] [place] [id number] Social History Tobacco Use Types Packs/Day Years Used Date Smoking Tobacco: Never Assessed Comments Unknown Sex and Gender Information Value Date Recorded Sex Assigned at Not on file Legal Sex Female 4:32 PM CDT Gender Identity Not on file Sexual Orientation Not on file documented as of this encounter Miscellaneous Notes * Cerner Conversion Note - Delvin Celestin MD - 08/12/2021 1:29 PM CDT Patient: IRINA TAMAYO Age: 56 Years Sex: Female : 1965 Subjective Patient is a poor historian, she has difficulty recalling timeline of events. Discharged from [facility] approximately 3 weeks ago after being treated for 10 days for MSSA bacteremia. Patient was discharged home on oral antibiotic, unclear which one. She had similar symptoms including chills, body aches, nausea on this past Wednesday prompting her visit to urgent care. PCP reviewed blood work after cultures resulted positive and recommended she come to the ED for admission. Currently she is resting in bed no issues. Blood pressures have been low. Renal function still at but somewhat improved. Complaining of body aches, legs cramping. Vital Signs T: 36.7 ??C TMIN: 36.2 ??C TMAX: 36.7 ??C HR: 82(Monitored) RR: 16 BP: 87/46 SpO2: 98% HT: 162.56 cm WT: 101.48 kg BMI: 38.4 Oxygen Settings (Last) Oxygen Therapy Mode: Nasal cannula (08/12/21 05:49:00) Oxygen Flow Rate: 2 Liter/Min (08/12/21 05:00:00) Intake & Output Totals Last 24 Hours (7a-7a) Input Total: 250 mL Output Total: 0 mL Balance: 250 mL Physical Exam General: Alert, well nourished, [...] Psychiatric: Cooperative, appropriate mood and affect Assessment/Plan #Reported bacteremia, cultures positive from urgent care/PCP office Obtain records Patient has mitral valve replacement as well as multiple sites of metal in her body?CHUCHO ordered ID consulted Received 2 dose vancomycin #Hypotension Hold antihypertensives and diuretics for now Give small bolus normal saline #Acute renal sufficiency Suspect component of CKD, worsening with hypovolemia/dehydration Creatinine improving, 2.4 today Nephrology consulted Avoid nephrotoxic medications #Chronic autoimmune anemia Patient has been followed by hematology/oncology Monitor Hgb, transfuse as needed Iron supplementation, folic acid #Chronic heart failure, A. fib, mechanical valve Unknown EF, echo pending INR subtherapeutic, 1.8?bridge with Heparin Aspirin Currently rate controlled #Diabetes Hold home meds SSI #Depression Celexa VTE Prophylaxis - Medical Warfarin 6 mg, [...] aspirin, 81 mg= 1 Tab, Oral, Daily CeleXA, 40 mg= 2 Tab, Oral, Daily Coumadin, 6 mg= 2 Tab, Oral, Daily docusate-senna 50 mg-8.6 mg oral tablet, 1 Tab, Oral, BID famotidine, 20 mg= 1 Tab, Oral, At Bedtime fentaNYL, 25 mcg= 0.5 mL, IV Push, Q4H, PRN ferrous gluconate, 324 mg= 1 Tab, Oral, Daily folic acid, 1 mg= 1 Tab, Oral, Daily HumaLOG Mix 75/25, 30 Units= 0.3 mL, SubCutaneous, BID hydrALAZINE, 10 mg= 0.5 mL, IV Push, Q4H, PRN ketotifen ophthalmic, 1 Drop, Eyes Both, BID labetalol, 10 mg= 2 mL, IV Push, Q4H, PRN lactobacillus acidophilus, 1 Cap, Oral, Daily levothyroxine, 25 mcg= 1 Tab, Oral, Daily ondansetron, 4 mg= 2 mL, IV Push, Q6H, PRN pantoprazole, 40 mg= 1 Tab, Oral, Daily Sodium Chloride 0.9% bolus, 500 mL, IV Piggyback, 1-Time traMADol, 50 mg= 1 Tab, Oral, Q6H, PRN Lab Results Test Name Test Result Date/Time Sodium Level 134 mmol/L (Low) 08/12/2021 00:22 EDT Sodium Level 131 mmol/L (Low) 08/11/2021 17:59 EDT Potassium Level 3.6 mmol/L 08/12/2021 00:22 EDT Potassium Level 4.1 mmol/L 08/11/2021 17:59 EDT Chloride Level 98 mmol/L (Low) 08/12/2021 00:22 EDT Chloride Level 96 mmol/L (Low) 08/11/2021 17:59 EDT Carbon Dioxide Level 29 mmol/L 08/12/2021 00:22 EDT Carbon Dioxide Level 26 mmol/L 08/11/2021 17:59 EDT Anion Gap 11 08/12/2021 00:22 EDT Anion Gap 13 08/11/2021 17:59 EDT Glucose Level 134 mg/dL (High) 08/12/2021 00:22 EDT Glucose Level 87 mg/dL 08/11/2021 17:59 EDT Blood Urea Nitrogen 69 mg/dL (High) 08/12/2021 00:22 EDT Blood Urea Nitrogen 70 mg/dL (High) 08/11/2021 17:59 EDT Creatinine Level 2.40 mg/dL (High) 08/12/2021 00:22 EDT Creatinine Level 2.50 mg/dL (High) 08/11/2021 17:59 EDT eGFR 25 mL/min/1.73m2 (Low) 08/12/2021 00:22 EDT eGFR 24 mL/min/1.73m2 (Low) 08/11/2021 17:59 EDT eGFR NonAfrican 21 mL/min/1.73m2 (Low) 08/12/2021 00:22 EDT eGFR NonAfrican 20 mL/min/1.73m2 (Low) 08/11/2021 17:59 EDT Bun/Creatinine 28.8 (High) 08/12/2021 00:22 EDT Bun/Creatinine 28.0 (High) 08/11/2021 17:59 EDT Calcium Level 9.6 mg/dL 08/12/2021 00:22 EDT Calcium Level 10.0 mg/dL 08/11/2021 17:59 EDT Protein Total 7.6 Gram/dL 08/12/2021 00:22 EDT Protein Total 8.7 Gram/dL (High) 08/11/2021 17:59 EDT Albumin Level 3.9 Gram/dL 08/12/2021 00:22 EDT Albumin Level 4.4 Gram/dL 08/11/2021 17:59 EDT Globulin 3.7 Gram/dL 08/12/2021 00:22 EDT Globulin 4.3 Gram/dL 08/11/2021 17:59 EDT A/G Ratio 1.1 08/12/2021 00:22 EDT A/G Ratio 1.0 (Low) 08/11/2021 17:59 EDT Bilirubin Total 0.6 mg/dL 08/12/2021 00:22 EDT Bilirubin Total 0.7 mg/dL 08/11/2021 17:59 EDT Alk Phos 110 Units/Liter 08/12/2021 00:22 EDT Alk Phos 128 Units/Liter 08/11/2021 17:59 EDT AST 16 Units/Liter 08/12/2021 00:22 EDT AST 18 Units/Liter 08/11/2021 17:59 EDT ALT 23 Units/Liter 08/12/2021 00:22 EDT ALT 25 Units/Liter 08/11/2021 17:59 EDT Magnesium Level 2.9 mg/dL (High) 08/11/2021 17:59 EDT Device Comment 1 Notified Nurse RBV 08/12/2021 11:29 EDT Device Comment 1 Notified Nurse RBV 08/12/2021 05:47 EDT Device Comment 1 Protocols Followed 08/11/2021 23:43 EDT Glucose POC2 165 mg/dL (High) 08/12/2021 11:29 EDT Glucose POC2 118 mg/dL (High) 08/12/2021 05:47 EDT Glucose POC2 151 mg/dL (High) 08/11/2021 23:43 EDT Lactic Acid Level 0.93 mmol/L 08/12/2021 11:50 EDT Lactic Acid Level 0.73 mmol/L (Low) 08/11/2021 17:59 EDT Sodium Ur Jackson 29 mMole/Liter 08/12/2021 03:40 EDT Troponin I Ultra <0.015 ng/mL 08/12/2021 00:22 EDT Troponin I Ultra <0.015 ng/mL 08/11/2021 21:30 EDT Troponin I Ultra <0.015 ng/mL 08/11/2021 17:59 EDT ProBNP 766 pg/mL (High) 08/12/2021 00:22 EDT ProBNP 757 pg/mL (High) 08/11/2021 21:30 EDT ProBNP 813 pg/mL (High) 08/11/2021 17:59 EDT WBC 4.7 K/uL 08/12/2021 11:50 EDT WBC 6.7 K/uL 08/12/2021 00:22 EDT WBC 6.8 K/uL 08/11/2021 17:59 EDT RBC 3.58 Million/uL (Low) 08/12/2021 11:50 EDT RBC 3.54 Million/uL (Low) 08/12/2021 00:22 EDT RBC 3.92 Million/uL (Low) 08/11/2021 17:59 EDT Hgb 8.8 g/dL (Low) 08/12/2021 11:50 EDT Hgb 8.7 g/dL (Low) 08/12/2021 00:22 EDT Hgb 9.5 g/dL (Low) 08/11/2021 17:59 EDT Hct 28.8 % (Low) 08/12/2021 11:50 EDT Hct 28.3 % (Low) 08/12/2021 00:22 EDT Hct 31.3 % (Low) 08/11/2021 17:59 EDT MCV 80.4 fL 08/12/2021 11:50 EDT MCV 79.9 fL 08/12/2021 00:22 EDT MCV 79.8 fL 08/11/2021 17:59 EDT MCH 24.6 pg (Low) 08/12/2021 11:50 EDT MCH 24.6 pg (Low) 08/12/2021 00:22 EDT MCH 24.2 pg (Low) 08/11/2021 17:59 EDT MCHC 30.6 Gram/dL (Low) 08/12/2021 11:50 EDT MCHC 30.7 Gram/dL (Low) 08/12/2021 00:22 EDT MCHC 30.4 Gram/dL (Low) 08/11/2021 17:59 EDT Platelet Count 206 K/uL 08/12/2021 11:50 EDT Platelet Count 201 K/uL 08/12/2021 00:22 EDT Platelet Count 223 K/uL 08/11/2021 17:59 EDT MPV 10.4 fL 08/12/2021 11:50 EDT MPV 10.2 fL 08/12/2021 00:22 EDT MPV 10.4 fL 08/11/2021 17:59 EDT RDW 19.0 % (High) 08/12/2021 11:50 EDT RDW 19.0 % (High) 08/12/2021 00:22 EDT RDW 19.2 % (High) 08/11/2021 17:59 EDT Neut % 77.1 % (High) 08/12/2021 00:22 EDT Neut % 75.2 % (High) 08/11/2021 17:59 EDT Neut # 5.17 K/uL 08/12/2021 00:22 EDT Neut # 5.15 K/uL 08/11/2021 17:59 EDT Lymph % 10.0 % (Low) 08/12/2021 00:22 EDT Lymph % 11.1 % (Low) 08/11/2021 17:59 EDT Lymph # 0.67 K/uL (Low) 08/12/2021 00:22 EDT Lymph # 0.76 K/uL (Low) 08/11/2021 17:59 EDT [place] % 9.5 % 08/12/2021 00:22 EDT [place] % 8.9 % 08/11/2021 17:59 EDT [place] # 0.64 K/uL 08/12/2021 00:22 EDT [place] # 0.61 K/uL 08/11/2021 17:59 EDT Eos % 3.1 % 08/12/2021 00:22 EDT Eos % 4.4 % 08/11/2021 17:59 EDT Eos # 0.21 08/12/2021 00:22 EDT Eos # 0.30 08/11/2021 17:59 EDT Baso % 0.3 % 08/12/2021 00:22 EDT Baso % 0.4 % 08/11/2021 17:59 EDT Baso # 0.02 08/12/2021 00:22 EDT Baso # 0.03 08/11/2021 17:[address] Oth 0 % 08/12/2021 03:40 EDT Slide Review No 08/12/2021 00:22 EDT Slide Review No 08/11/2021 17:59 EDT PT 17.1 Second(s) (High) 08/12/2021 10:54 EDT PT 18.9 Second(s) (High) 08/11/2021 17:59 EDT INR 1.6 (High) 08/12/2021 10:54 EDT INR 1.8 (High) 08/11/2021 17:59 EDT PTT 39.6 Second(s) (High) 08/11/2021 17:59 EDT Urine Type U CleanCatch 08/11/2021 17:59 EDT Urine Color YELLOW2 08/11/2021 17:59 EDT Urine Appearance CLEAR2 08/11/2021 17:59 EDT Urine Specific [place] 1.007 08/11/2021 17:59 EDT Urine pH Dipstick [...] Squamous Epithelial Cells 0-2 08/11/2021 17:59 EDT Procalcitonin 0.62 ng/mL 08/11/2021 21:30 EDT Vancomycin Trough 21.1 mcg/mL (High) 08/12/2021 00:22 EDT SARS-CoV-2 (COVID19 PCR) Negative2 08/11/2021 19:38 EDT Electronically signed by [facility] Conversion Firer Diesel Locomotive Cerner at 03/09/2023 9:01 PM CDT documented in this encounter Plan of Treatment Not on file documented as of this encounter Visit Diagnoses Not on filedocumented in this encounter Care Teams Bus Greaser Relationship Specialty Start Date End Date Reji Castro MD [address] [place] [id number] PCP - General Adolescent Medicine 10/02/22 documented as of this encounter
--- OUTSIDE RECORDS SUMMARY | 2025-05-03 08:51 | XMS_ITS | Encounter Summary ---
Author Organization [employer] Address [address] [place] [address] Care Team Providers Care Attendance Clerk Name Role Phone Reji Castro MD Primary Care Provider [phone] Encounter Details Date Type Department Care Team (Late st Contact Info) Description 08/19/2021 Transcribed Document [facility] [place] [facility] [place] [address] ProviderDelvin MD [facility] [place] [address] Social History Tobacco Use Types Packs/Day Years Used Date Smoking Tobacco: Never Assessed Comments Unknown Sex and Gender Information Value Date Recorded Sex Assigned at Not on file Legal Sex Female 4:32 PM CDT Gender Identity Not on file Sexual Orientation Not on file documented as of this encounter Miscellaneous Notes * Cerner Conversion Note - Delvin ProviderMD - 08/19/2021 4:16 PM CDT Patient: IRINA TAMAYO Age: 56 Years Sex: Female : 1965 Subjective Feeling better today; denies chest pain, no shortness of breath. Right paula cath placed today. Vital Signs T: 36.6 ??C TMIN: 36.6 ??C TMAX: 37.3 ??C HR: 59(Monitored) RR: 18 BP: 114/61 SpO2: 93% Oxygen Settings (Last) Oxygen Therapy Mode: Nasal cannula (08/19/21 11:00:00) Oxygen Flow Rate: 2 Liter/Min (08/19/21 11:00:00) Intake & Output Totals Last 24 Hours (7a-7a) Input Total: 702 mL Output Total: 3000 mL Balance: -2298 mL Hospital Course 56 year old female [...] T sat 6%. S/P IV iron. Recommendations: RTISTAN on CKD stage III. Baseline Cr 1.6mg/dl. Cr on this admit 2.4-2.5mg/dl now back to baseline. Labs reviewed; electrolytes stable. Cont on Bumex 2 mg bid for now. Check CK level on daptomycin weekly. Monitor GFR adjust medications. VTE Prophylaxis - [...] oral suspension, 30 mL, Oral, Daily, PRN ondansetron, 4 mg= 2 mL, IV Push, Q4H, PRN pantoprazole, 40 mg= 1 Tab, Oral, Daily Percocet 10/325, 1 Tab, Oral, Q6H, PRN Phenergan, 12.5 mg= 0.5 mL, IV Push, Q6H, PRN Toprol-XL, 25 mg= 1 Tab, Oral, QPM Lab Results Test Name Test Result Date/Time Sodium Level 137 mmol/L 08/19/2021 11:06 EDT Potassium Level 4.3 mmol/L 08/19/2021 11:06 EDT Chloride Level 105 mmol/L 08/19/2021 11:06 EDT Carbon Dioxide Level 28 mmol/L 08/19/2021 11:06 EDT Anion Gap 8 (Low) 08/19/2021 11:06 EDT Glucose Level 191 mg/dL (High) 08/19/2021 11:06 EDT Blood Urea Nitrogen 16 mg/dL 08/19/2021 11:06 EDT Creatinine Level 1.60 mg/dL (High) 08/19/2021 11:06 EDT eGFR 40 mL/min/1.73m2 (Low) 08/19/2021 11:06 EDT eGFR NonAfrican 33 mL/min/1.73m2 (Low) 08/19/2021 11:06 EDT Bun/Creatinine 10.0 08/19/2021 11:06 EDT Calcium Level 9.2 mg/dL 08/19/2021 11:06 EDT Device Comment 1 Notified Nurse RBV 08/19/2021 11:18 EDT Device Comment 1 Notified Nurse RBV 08/19/2021 05:30 EDT Device Comment 1 Notified Nurse RBV 08/18/2021 19:48 EDT Device Comment 1 Notified Nurse RBV 08/18/2021 17:04 EDT Glucose POC2 198 mg/dL (High) 08/19/2021 11:18 EDT Glucose POC2 90 mg/dL 08/19/2021 05:30 EDT Glucose POC2 126 mg/dL (High) 08/18/2021 19:48 EDT Glucose POC2 147 mg/dL (High) 08/18/2021 17:04 EDT WBC 10.8 K/uL (High) 08/19/2021 11:06 EDT RBC 2.95 Million/uL (Low) 08/19/2021 11:06 EDT Hgb 7.2 g/dL (Low) 08/19/2021 11:06 EDT Hct 25.3 % (Low) 08/19/2021 11:06 EDT MCV 85.8 fL 08/19/2021 11:06 EDT MCH 24.4 pg (Low) 08/19/2021 11:06 EDT MCHC 28.5 Gram/dL (Low) 08/19/2021 11:06 EDT Platelet Count 207 K/uL 08/19/2021 11:06 EDT MPV 10.2 fL 08/19/2021 11:06 EDT RDW 19.9 % (High) 08/19/2021 11:06 EDT Neut % 85.7 % (High) 08/19/2021 11:06 EDT Neut # 9.28 K/uL (High) 08/19/2021 11:06 EDT Lymph % 3.1 % (Low) 08/19/2021 11:06 EDT Lymph # 0.34 x10(3)/uL (Low) 08/19/2021 11:06 EDT Miner % 7.3 % 08/19/2021 11:06 EDT Miner # 0.79 K/uL 08/19/2021 11:06 EDT Eos % 1.6 % 08/19/2021 11:06 EDT Eos # 0.17 x10(3)/uL 08/19/2021 11:06 EDT Baso % 0.3 % 08/19/2021 11:06 EDT Baso # 0.03 x10(3)/uL 08/19/2021 11:06 EDT Slide Review No 08/19/2021 11:06 EDT IG# 0.22 x10(3)/uL (High) 08/19/2021 11:06 EDT IG% 2.00 % (High) 08/19/2021 11:06 EDT PT 13.5 Second(s) (High) 08/19/2021 11:06 EDT INR 1.3 (High) 08/19/2021 11:06 EDT PTT Heparin 74.4 Second(s) (High) 08/18/2021 18:32 EDT Electronically signed by [facility] Conversion Fixed Assets Accountant Cerner at 03/09/2023 8:42 PM CDT documented in this encounter Plan of Treatment Not on file documented as of this encounter Visit Diagnoses Not on filedocumented in this encounter Care Teams Attendance Clerk Relationship Specialty Start Date End Date Reji Castro MD [address] [place] [id number] PCP - General Adolescent Medicine 10/02/22 documented as of this encounter
--- OUTSIDE RECORDS SUMMARY | 2025-05-03 08:51 | XMS_ITS | Encounter Summary ---
Author Organization [employer] Address [address] [place] [address] Care Team Providers Care Profile Saw Operator Name Role Phone Reji Castro MD Primary Care Provider [phone] Encounter Details Date Type Department Care Team (Late st Contact Info) Description 08/17/2021 Transcribed Document [facility] Radiology [address] [place] [address] Loren Solorzano MD [address] [place] [address] [address] [place] [id number] Social History Tobacco Use Types Packs/Day Years Used Date Smoking Tobacco: Never Assessed Comments Unknown Sex and Gender Information Value Date Recorded Sex Assigned at Not on file Legal Sex Female 4:32 PM CDT Gender Identity Not on file Sexual Orientation Not on file documented as of this encounter Miscellaneous Notes * Cerner Conversion Note - Loren Solorzano MD - 08/17/2021 12:16 PM EDT Patient: IRINA TAMAYO Age: 56 years Sex: Female : 1965 Associated Diagnoses: None Author: LOREN SOLORZANO MD-INT Subjective Patient feeling better today. Mild bilateral hip pain. Review of Systems Constitutional: No fever, No [...] PRN: Anxiety CeleXA: 40 mg, Oral, Daily DAPTOmycin + Sodium Chloride 0.9% intravenous solution 50 mL: 700 mg, 14 mL, 128 mL/Hr, IV Piggyback, [id number] Dextrose 50% injection: 12.5 Gram, IV Push, Q15Min, PRN: Other (See Comment) Dextrose 50% injection: 25 Gram, IV Push, Q15Min, PRN: Other (See Comment) Dextrose 50% injection: 25 Gram, IV Push, Q15Min, PRN: Other (See Comment) Dextrose 50% injection: 25 Gram, IV Push, Q15Min, PRN: Other (See Comment) Lactated Ringers Injection intravenous solution 1,000 mL: 20 mL/Hr, IntraVENous Milk of Magnesia 8% oral suspension: 30 [...] Oral, BID, 180 Tab, 0 Refill(s), Medications (34) Active Scheduled: (14) aspirin 81 mg chew tab 81 mg 1 Tab, Oral, Daily ceFAZolin + NaCl 0.9% 50 mL 1 Gram, IV Piggyback, Q8HInt citalopram 20 mg tab 40 mg 2 Tab, Oral, Daily DAPTOmycin + NaCl 0.9% 50 mL 700 mg 14 mL, IV Piggyback, [id number] famotidine 20 mg tab 20 mg 1 [...] 8.6/50 mg tab 1 Tab, Oral, BID Continuous: (2) heparin/NaCl 0.45% 25,000 Units + Premix Diluent NaCl 0.45% 250 mL 250 mL, IntraVENous lactated ringers 1,000 mL 1,000 mL, IntraVENous, 20 mL/Hr PRN: (18) acetaminophen 325 mg tab 650 mg 2 [...] Bioprosthetic mitral valve replacement / SNOMED CT 737813554 / Confirmed Chronic kidney disease / SNOMED CT 3244315352 / Confirmed COPD - Chronic obstructive pulmonary disease / SNOMED CT 708544969 / Confirmed History of obstructive sleep apnea / IMO 30105742 / Confirmed HLD - Hyperlipidemia / SNOMED CT 759879968 / Confirmed HTN - Hypertension / SNOMED CT 5671372068 / Confirmed Canceled: Atrial fibrillation / SNOMED CT 00025538, Active Problems (25) AIHA (autoimmune hemolytic anemia) [...] Last Charted Minimum Maximum Temp 97.6 (AUG 17:21) 97.6 (AUG 17 05:21) 98 (AUG 16 13:43) Apical HR 83 (AUG 16 21:41) 83 (AUG 16 21:41) 83 (AUG 16 21:41) Mon HR 88 (AUG 17 05:21) 76 (AUG 16 13:43) 93 (AUG 17 03:45) Resp Rate 16 (AUG 17 05:21) 16 (AUG 16 13:43) 16 (AUG 16 13:43) SBP 101 (AUG 17 05:21) 100 (AUG 17 03:45) 129 (AUG 16 13:43) DBP L 55 (AUG 17 05:21) L 55 (AUG 17 05:21) 75 (AUG 16 18:52) MAP 74 (AUG 17 05:21) 74 (AUG 17 05:21) 91 (AUG 16 18:52) SpO2 96 (AUG 17 08:00) L 93 (AUG 16 18:52) 96 (AUG 17 05:21) General: Alert and oriented, No acute distress. Eye: Pupils are equal, round and reactive to light, Extraocular movements are intact, Normal conjunctiva. HENT: Normocephalic. Neck: Supple, Non-tender. Respiratory: Lungs are clear to auscultation, Breath sounds are equal. Cardiovascular: Normal rate, Mechanical click heard. . Gastrointestinal: Soft, Non-tender, Non-distended, Normal bowel sounds. Genitourinary: No costovertebral angle tenderness. Musculoskeletal: Normal range of motion, No tenderness. Integumentary: Warm, No rash. Neurologic: Alert, Oriented, No focal deficits. Psychiatric: Cooperative, Appropriate mood & affect. Review / Management AUG 17 08:05 L 135 104 18 / H 126 4.4 27 H 1.20 \ AUG 17 08:05 \ L 7.5 / 6.4 195 / L 25.4 \ No Radiology Results Found Results review: Labs (Last four charted values) WBC 6.4 (AUG 17) 7.1 (AUG 15) 6.7 (JUL 23) 5.5 (SEP ) HB L 7.5 (AUG 17) L 7.5 (SEP 25) L 7.9 (SEP 24) L 8.0 (AUG 14) HCT L 25.4 (AUG 17) L 25.9 (SEP 25) L 26.7 (SEP 24) L 27.2 (SEP 23) Plt 195 (SEP ) 197 (SEP 24) 210 (SEP 23) 206 (SEP 22) Na L 135 (SEP ) 137 (SEP 25) 137 (SEP 24) L 135 (SEP 22) K 4.4 (SEP 26) 4.4 (SEP 25) 4.4 (SEP 24) 4.2 (SEP 22) Cl 104 (SEP ) 106 (SEP 25) 104 (SEP 24) 102 (SEP 22) CO2 27 (SEP 26) 25 (SEP 25) 27 (SEP 24) 29 (SEP 22) BUN 18 (SEP ) H 23 (SEP 25) H 28 (SEP 24) H 35 (SEP 22) Cr H 1.20 (SEP 26) H 1.40 (SEP 25) H 1.80 (SEP 24) H 1.80 (SEP 22) Glu R H 126 (SEP ) H 112 (SEP 25) H 139 (SEP 24) H 114 (SEP 22) Ca 8.9 (SEP ) 9.5 (SEP 25) 9.4 (SEP 24) 9.1 (SEP 22) Lactic .93 (SEP 21) L .73 (SEP 20) PT H 14.6 (AUG 17) H 17.2 (AUG 16) H 18.2 (JUL 24) H 17.2 (SEP ) INR H 1.4 (AUG 17) H 1.7 (AUG 16) H 1.8 (JUL 24) H 1.7 (AUG 14) PTT H 39.6 (SEP 20) AST 19 (JUL 24) 18 (SEP ) 17 (SEP ) 16 (SEP ) ALT 17 (AUG 15) 17 (AUG 13) 19 (AUG 13) 23 (SEP ) ALK P 101 (SEP 24) 102 (SEP 22) 102 (SEP 22) 110 (SEP ) T Bili 0.4 (AUG 15) 0.4 (SEP ) 0.5 (SEP ) 0.6 (SEP ) PTN 7.0 (AUG 15) 7.3 (SEP ) 6.9 (SEP ) 7.6 (SEP ) ALB 3.5 (SEP 24) 3.8 (SEP ) 3.9 (SEP ) 3.9 (SEP ) Lipase 224 (AUG 13) Troponin <0.015 (SEP ) <0.015 (SEP 20) <0.015 (SEP 20) . Medication Changes from Previous Midnight to Current New Medications: No Qualifying New Meds Discontinued Medications: No Qualifying Discontinued Meds Impression and Plan #CN Staph bacteremia, cultures positive from OSH Patient has mitral valve replacement as well as multiple sites of metal in her body?CHUCHO neg for endocarditis ID following: Cefazolin, Daptomycin?will need IV antibiotics until at least 09/08 Received 2 dose vancomycin Port removed 08/14. Catheter tip cultures pending Repeat blood cx NGTD Plan for Port-A-Cath placement next Wednesday. Continue hold Coumadin and continue heparin drip. Surgery consulted. #Acute on chronic kidney disease III Suspect component of CKD, worsening with hypovolemia/dehydration Creatinine improving Nephrology following Avoid nephrotoxic medications #Autoimmune hemolytic anemia Patient has been followed by hematology/oncology Monitor Hgb, transfuse as needed Iron supplementation, folic acid Status post multiple blood transfusions counted more than 180 #Chronic heart failure, A. fib, mechanical valve EF 55% INR subtherapeutic, 1.8?bridge with Heparin; goal INR 2.5-3.5 Aspirin, metoprolol Currently rate controlled Cardiology evaluated, signed off 08/14 Cont to hold bumex, spironolactone, valsartan due to borderline hypotension, TRISTAN #Diabetes Hold home meds SSI #Depression Celexa #Pain [place] 10 mg every 6 hours as needed [...] on filedocumented in this encounter Care Teams Profile Saw Operator Relationship Specialty Start Date End Date Reji Castro MD [address] [place] [id number] PCP - General Adolescent Medicine 10/02/22 documented as of this encounter
--- OUTSIDE RECORDS SUMMARY | 2025-05-03 08:51 | XMS_ITS | Encounter Summary ---
Author Organization [employer] Address [address] [place] [address] Care Team Providers Care Stud Setter Name Role Phone Reji Castro MD Primary Care Provider [phone] Encounter Details Date Type Department Care Team (Late st Contact Info) Description 08/19/2021 Transcribed Document [facility] [place] Family Medicine [address] [place] [address] ProviderDelvin MD [address] [place] [id number] Social History Tobacco Use Types Packs/Day Years Used Date Smoking Tobacco: Never Assessed Comments Unknown Sex and Gender Information Value Date Recorded Sex Assigned at Not on file Legal Sex Female 4:32 PM CDT Gender Identity Not on file Sexual Orientation Not on file documented as of this encounter Miscellaneous Notes * Cerner Conversion Note - Delvin Celestin MD - 08/19/2021 7:30 AM CDT [facility] Main OR Preop Summary Primary Physician: NENA PEARSON MD-[facility] Finalized Date/Time: 08/19/21 07:37:55 Pt. Name: IRINA TAMAYO/Sex: 1965 Female Med Rec #: [id number] Physician: VINCE BELLO MD Financial #: [id number] Pt. Type: I Room/Bed: 454/1 Admit/Disch: 08/11/21 21:21:00 - Institution: [facility] PreOp Case Times Entry 1 In Preop 08/19/21 05:49:00 Ready for Holding n/a Room Patient Ready for 08/19/21 06:35:00 Surgery Patient Out of Preop 08/19/21 07:33:00 Patient Out of n/a Holding Room Last Modified By: Merle Hicks Rn 08/19/21 07:37:50 [facility] PreOp Case Times Audit 08/19/21 07:37:50 Appliance Technician: [email or web address] Modifier: [email or web address] <+> 1 Patient Out of Preop Finalized By: Merle Hicks Rn Document Signatures Signed By: Merle Hicks Rn 08/19/21 07:37 Electronically signed by Lanny [facility] Conversion Surgical Supply Assistant Cerner at 03/09/2023 8:32 PM CDT documented in this encounter Plan of Treatment Not on file documented as of this encounter Visit Diagnoses Not on filedocumented in this encounter Care Teams Stud Setter Relationship Specialty Start Date End Date Reji Castro MD [address] [place] [id number] PCP - General Adolescent Medicine 10/02/22 documented as of this encounter
--- OUTSIDE RECORDS SUMMARY | 2025-05-03 08:51 | XMS_ITS | Encounter Summary ---
Author Organization [employer] Address [address] [place] [address] Care Team Providers Care Car Wrecker Name Role Phone Reji Castro MD Primary Care Provider + [phone] Encounter Details Date Type Department Care Team (Late st Contact Info) Description 08/16/2021 Transcribed Document [facility] [place] Family Medicine [facility] [place] [address] ProviderDelvin MD [address] [place] [id number] Social History Tobacco Use Types Packs/Day Years Used Date Smoking Tobacco: Never Assessed Comments Unknown Sex and Gender Information Value Date Recorded Sex Assigned at Not on file Legal Sex Female 4:32 PM CDT Gender Identity Not on file Sexual Orientation Not on file documented as of this encounter Miscellaneous Notes * Cerner Conversion Note - Delvin Celestin MD - 08/16/2021 12:49 PM CDT Patient: IRINA TAMAYO Age: [...] cr 1.6mg/dl. . Review of Systems Constitutional: Weakness, Fatigue, No fever, No chills. Respiratory: No shortness of breath, No hemoptysis. Gastrointestinal: Nausea, No vomiting, No diarrhea. Genitourinary: No dysuria, No hematuria. Neurologic: Alert and oriented X4. Health Status Allergies.Current medications: Medications by Classification Antimicrobials ceFAZolin + Sodium Chloride 0.9% intravenous solution 50 mL - 1 Gram, IV Piggyback, Inj, Q8HInt, infuse over 30 Minute(s), Routine DAPTOmycin + Sodium Chloride 0.9% intravenous solution 50 mL - 700 mg, IV Piggyback, Inj, [id number], infuse over 30 Minute(s), Routine Cardiovascular metoprolol (Toprol-XL) - 25 mg, Oral, XL Tab, QPM, Routine labetalol - 10 mg, IV Push, Inj, Q4H, PRN for Hypertension, Routine Respiratory albuterol (albuterol 2.5 mg/3 mL (0.083%) inhalation solutio - 3 mL, Nebulized Inhalation, Inh, RT_Q4H, PRN for Shortness of Breath, Routine diphenhydrAMINE - 25 mg, Oral, Tab, Q6H, PRN for Itching, Routine promethazine (Phenergan) - 12.5 mg, IV Push, Inj, Q6H, PRN for Nausea, Routine GI ondansetron - 4 mg, IV Push, Inj, Q4H, PRN for Nausea, Routine diphenhydrAMINE - 25 mg, Oral, Tab, Q6H, PRN for Itching, Routine *Duplicate* pantoprazole - 40 mg, Oral, EC Tab, Daily, Routine magnesium hydroxide (Milk of Magnesia 8% oral suspension) - 30 mL, Oral, Liquid, Daily, PRN for Constipation, Routine famotidine - 20 mg, Oral, Tab, [...] - 25 mcg, Oral, Tab, Daily, Routine Neuro diphenhydrAMINE - 25 mg, Oral, Tab, Q6H, PRN for Itching, Routine *Duplicate* Psych citalopram (CeleXA) - 40 mg, Oral, Tab, Daily, Routine HEENT ketotifen ophthalmic - 1 Drop, Eyes Both, Drops, BID Pain Meds fentaNYL - 25 mcg, IV Push, Inj, Q4H, PRN for Pain (Severe 7-10), Routine acetaminophen-oxyCODONE (Percocet 10/325) - 1 Tab, Oral, Tab, Q6H, PRN for Pain (Moderate 4-6), Routine aspirin - 81 mg, Oral, Tab, Daily acetaminophen - 650 mg, Oral, Tab, Q6H, PRN for Pain (Mild 1-3), Routine Sedatives ALPRAZolam - 0.5 mg, Oral, Tab, TID, PRN for Anxiety, Routine diphenhydrAMINE - 25 mg, Oral, Tab, Q6H, PRN for Itching, Routine *Duplicate* Vitamins ferrous gluconate - 324 mg, Oral, [...] Output Totals Last 24 Hours (7a-7a) Intake (4 Events) Continuous Infusions (68 mL) Medications (100 mL) Output (2 Events) Urine Voided (Volume) (1350 mL) Input Total: 168 mL Output Total: 1350 mL Balance: -1182 mL , Weight (Daily) No Qualifying Routine Weight Events VS/Measurements Vitals Signs (last 24 hrs) Last Charted Minimum Maximum Temp 98 ([facility] [place] 10:50) 97.6 ([facility] 06:00) 98 ([facility] 18:00) Apical HR 76 ([facility] 20:32) 76 ([facility] 20:32) 76 ([facility] 20:32) Mon HR 81 (AUG 16 10:50) 67 ([facility] 14:52) 85 ([facility] 18:00) Resp Rate 18 (AUG 16 10:50) 14 (AUG 15 23:00) 19 ([facility] 18:00) SBP 112 (AUG 16 10:50) 95 ([facility] 14:52) 114 ([facility] 23:00) DBP 60 (AUG 16 10:50) L 45 ([facility] 14:52) 63 ([facility] 18:00) MAP 74 (AUG 16 10:50) 63 ([facility] 23:00) 83 ([facility] 18:00) SpO2 97 ([facility] 10:50) L 92 ([facility] 14:52) 99 (AUG 16 03:39) General: No acute distress. Eye: Extraocular movements are intact, Conjunctiva pale. HENT: Normocephalic, Oral mucosa is moist. Neck: Supple, No jugular venous distention. Respiratory: Lungs are clear to auscultation, Symmetrical chest wall expansion. Cardiovascular: Normal rate, No murmur, No gallop, No edema. Gastrointestinal: Soft, Non-tender, Non-distended, Normal bowel sounds. Integumentary: Warm, Dry. Neurologic: Alert, Oriented. Psychiatric: Cooperative, Appropriate mood & affect, Normal judgment. Review / Management Results review: Labs (Last four charted values) WBC 7.1 (AUG 15) 6.7 (AUG 14) 5.5 (AUG 13) 5.5 (AUG 13) HB L 7.5 (AUG 16) L 7.9 (JUL 24) L 8.0 (AUG 14) L 8.1 (AUG 13) HCT L 25.9 (AUG 16) L 26.7 (JUL 24) L 27.2 (AUG 14) L 26.9 (AUG 13) Plt 197 (SEP 24) 210 (SEP 23) 206 (SEP 22) 197 (SEP 22) Na 137 (SEP 25) 137 (SEP 24) L 135 (SEP 22) 136 (SEP 22) K 4.4 (SEP 25) 4.4 (SEP 24) 4.2 (SEP 22) 4.5 (SEP 22) Cl 106 (SEP 25) 104 (SEP 24) 102 (SEP 22) 103 (SEP 22) CO2 25 (SEP 25) 27 (SEP 24) 29 (SEP 22) 30 (SEP 22) BUN H 23 (JUL 25) H 28 (SEP 24) H 35 (SEP 22) H 50 (SEP 22) Cr H 1.40 (SEP 25) H 1.80 (SEP 24) H 1.80 (SEP 22) H 1.60 (SEP 22) Glu R H 112 (SEP 25) H 139 (SEP 24) H 114 (SEP 22) 102 (SEP 22) Ca 9.5 (SEP 25) 9.4 (SEP 24) 9.1 (SEP 22) 9.1 (SEP 22) Lactic .93 (SEP 21) L .73 (SEP 20) PT H 17.2 (JUL 25) H 18.2 (JUL 24) H 17.2 (JUL 23) H 17.0 (SEP 23) INR H 1.7 (JUL 25) H 1.8 (JUL 24) H 1.7 (JUL 23) H 1.6 (AUG 14) PTT H 39.6 (AUG 11) AST 19 (JUL 24) 18 (SEP 22) 17 (SEP 22) 16 (AUG 12) ALT 17 (AUG 15) 17 (AUG 13) 19 (AUG 13) 23 (AUG 12) ALK P 101 (AUG 15) 102 (AUG 13) 102 (AUG 13) 110 (AUG 12) T Bili 0.4 (JUL 24) 0.4 (SEP 22) 0.5 (AUG 13) 0.6 (AUG 12) PTN 7.0 (AUG 15) 7.3 (AUG 13) 6.9 (AUG 13) 7.6 (AUG 12) ALB 3.5 (AUG 15) 3.8 (SEP ) 3.9 (AUG 13) 3.9 (AUG 12) Lipase 224 (AUG 13) Troponin <0.015 (AUG 12) <0.015 (AUG 11) <0.015 (AUG 11) . AUG 16 02:19 137 106 H 23 / H 112 4.4 25 H 1.40 \ Impression and Plan Dx and Plan 1. TRISTAN in the setting of hemodynamic variation and sepsis.#TRISTAN on kidney disease stage III. Creatinine close to baseline at this time. Ureteral stent placement in 2013 and later removed. 2. MSSA bacteremia 3. Sepsis 4. Hx of left ureteral stent placement and left hydronephrosis in 2013 5. Afib 6. HTN 7. Autoimmune hemolytic anemia 8. Transfusion dependent anemia Recommendations: TRISTAN on CKD stage III. Baseline cr 1.6mg/dl. Cr on this admit 2.4-2.5mg/dl. Creatinine improved to 1.4 Renal function improved. Check CK level on daptomycin weekly. Monitor GFR adjust medications. Encourage oral hydration. We will check iron studies if needed Injectafer can be given. Electronically signed by Loki [employer] Conversion Dielectric Testing Machine Operator Cerner at 03/09/2023 9:01 PM CDT documented in this encounter Plan of Treatment Not on file documented as of this encounter Visit Diagnoses Not on filedocumented in this encounter Care Teams Car Wrecker Relationship Specialty Start Date End Date Reji aCstro MD [address] [place] [id number] PCP - General Adolescent Medicine 10/02/22 documented as of this encounter
--- OUTSIDE RECORDS SUMMARY | 2025-05-03 08:51 | XMS_ITS | Encounter Summary ---
Author Organization [employer] Address [address] [place] [address] Care Team Providers Care Pot Press Operator Name Role Phone Reji Castro MD Primary Care Provider [phone] Encounter Details Date Type Department Care Team (Late st Contact Info) Description 08/12/2021 Transcribed Document [facility] [address] ProviderDelvin MD [address] [place] [id number] Social History Tobacco Use Types Packs/Day Years Used Date Smoking Tobacco: Never Assessed Comments Unknown Sex and Gender Information Value Date Recorded Sex Assigned at Not on file Legal Sex Female 4:32 PM CDT Gender Identity Not on file Sexual Orientation Not on file documented as of this encounter Miscellaneous Notes * Cerner Conversion Note - Delvin ProviderMD - 08/12/2021 4:00 PM CDT Patient: IRINA TAMAYO Age: 56 Years Sex: Female : 1965 Nephrology consultation. TRISTAN on CKD? VS TRISTAN Sepsis Attempted twice to see the patient. Getting CHUCHO today. Will see the patient in AM. Chart reviewed. Discussed with RN documented in this encounter Plan of Treatment Not on file documented as of this encounter Visit Diagnoses Not on filedocumented in this encounter Care Teams Pot Press Operator Relationship Specialty Start Date End Date Reji Castro MD [address] [place] [id number] PCP - General Adolescent Medicine 10/02/22 documented as of this encounter
--- OUTSIDE RECORDS SUMMARY | 2025-05-03 08:51 | XMS_ITS | Encounter Summary ---
Author Organization [employer] Address [address] [place] [address] Care Team Providers Care Metal Furniture Assembler Name Role Phone Reji Castro MD Primary Care Provider [phone] Encounter Details Date Type Department Care Team (Late st Contact Info) Description 08/19/[address] [facility] [place] Family Medicine [address] [place] [address] ProviderDelvin MD [address] [place] [address] Social History Tobacco Use Types Packs/Day Years Used Date Smoking Tobacco: Never Assessed Comments Unknown Sex and Gender Information Value Date Recorded Sex Assigned at Not on file Legal Sex Female 4:32 PM CDT Gender Identity Not on file Sexual Orientation Not on file documented as of this encounter Miscellaneous Notes * Cerner Conversion Note - Delvin ProviderMD - 08/19/2021 11:39 AM CDT RX Interventions Entered On: 08/19/2021 11:40 EDT Performed On: 08/19/2021 11:39 EDT by Andrea Moraes, Resident Pharmacist Clinical Interventions Clarify Drug Order : Yes Andrea Moraes, Resident Pharmacist - 08/19/2021 11:39 EDT Clarify Drug Order Clarify Drug Order, Order : D/w Dr. Moore via phone: she intends to give CTX 2 g IV x1 + cont. cefazolin IV q8h until discharge - confirmed via phone & per note. Clarify Drug Order, Value : 0 Dollar Clarify Drug Order, Time : 10 Minute(s) Andrea Moraes Resident Pharmacist - 08/19/2021 11:39 EDT Electronically signed by Lanny [facility] Conversion Clamp Operator Cerner at 03/09/2023 8:47 PM CDT documented in this encounter Plan of Treatment Not on file documented as of this encounter Visit Diagnoses Not on filedocumented in this encounter Care Teams Metal Furniture Assembler Relationship Specialty Start Date End Date Reji Castro MD [address] [place] [id number] PCP - General Adolescent Medicine 10/02/22 documented as of this encounter
--- OUTSIDE RECORDS SUMMARY | 2025-05-03 08:51 | XMS_ITS | Encounter Summary ---
Author Organization [employer] Address [address] [place] [address] Care Team Providers Care Hotel Dining Room Cashier Name Role Phone Reji Castro MD Primary Care Provider [phone] Encounter Details Date Type Department Care Team (Late st Contact Info) Description 08/17/2021 Transcribed Document [facility] Family Medicine [facility] [place] [address] ProviderDelvin MD [facility] [place], [place] [address] Social History Tobacco Use Types Packs/Day Years Used Date Smoking Tobacco: Never Assessed Comments Unknown Sex and Gender Information Value Date Recorded Sex Assigned at Not on file Legal Sex Female 4:32 PM CDT Gender Identity Not on file Sexual Orientation Not on file documented as of this encounter Miscellaneous Notes * Cerner Conversion Note - Delvin ProviderMD - 08/17/2021 2:00 AM CDT Search Specialist Details Entered On: 08/17/2021 1:07 EDT Performed On: 08/17/2021 2:00 EDT by Phyllis Quiros Lpn Order Details Transport Mode Order Detail : Ambulatory Isolation Precautions Order Detail : Standard Precautions Order Detail : 0 Lift/Transfer : Independent Central Line Order Detail : No Room Service : Appropriate Arterial Line : No Patient Needs Meds Crushed/Liquid : No Phyllis Quiros Lpn - 08/17/2021 1:07 EDT documented in this encounter Plan of Treatment Not on file documented as of this encounter Visit Diagnoses Not on filedocumented in this encounter Care Teams Hotel Dining Room Cashier Relationship Specialty Start Date End Date Reji Castro MD [address] [place] [id number] PCP - General Adolescent Medicine 10/02/22 documented as of this encounter
--- OUTSIDE RECORDS SUMMARY | 2025-05-03 08:51 | XMS_ITS | Encounter Summary ---
Author Organization [employer] Address [address] [place] [address] Care Team Providers Care Hide Examiner Name Role Phone Reji Castro MD Primary Care Provider + [phone] Encounter Details Date Type Department Care Team (Late st Contact Info) Description 08/19/2021 Transcribed Document [facility] [place] Family [place] [facility] [place] [address] ProviderDelvin MD [address] [place] [address] Social History Tobacco Use Types Packs/Day Years Used Date Smoking Tobacco: Never Assessed Comments Unknown Sex and Gender Information Value Date Recorded Sex Assigned at Not on file Legal Sex Female 4:32 PM CDT Gender Identity Not on file Sexual Orientation Not on file documented as of this encounter Miscellaneous Notes * Cerner Conversion Note - Delvin ProviderMD - 08/19/2021 5:00 AM CDT Chart Check - Review Order Profile Entered On: 08/19/2021 7:52 EDT Performed On: 08/19/2021 5:00 EDT by Kayy Garcia, RN Chart Check Powerplans Initiated/Discontinued as Appropriate : Not applicable All Active Orders Reviewed : Yes Kayy Garcia RN - 08/19/2021 7:52 EDT documented in this encounter Plan of Treatment Not on file documented as of this encounter Visit Diagnoses Not on filedocumented in this encounter Care Teams Hide Examiner Relationship Specialty Start Date End Date Reji Castro MD [address] [place] [id number] PCP - General Adolescent Medicine 10/02/22 documented as of this encounter
--- OUTSIDE RECORDS SUMMARY | 2025-05-03 08:51 | XMS_ITS | Encounter Summary ---
Author Organization [employer] Address [address] [place] [address] Care Team Providers Care Farmworker Cranberry Name Role Phone Reji Castro MD Primary Care Provider [phone] Encounter Details Date Type Department Care Team (Late st Contact Info) Description 08/16/2021 Transcribed Document [facility] Family Medicine [address] [place] [address] ProviderDelvin MD [address] [place] [address] Social History Tobacco Use Types Packs/Day Years Used Date Smoking Tobacco: Never Assessed Comments Unknown Sex and Gender Information Value Date Recorded Sex Assigned at Not on file Legal Sex Female 4:32 PM CDT Gender Identity Not on file Sexual Orientation Not on file documented as of this encounter Miscellaneous Notes * Cerner Conversion Note - Delvin Celestin MD - 08/16/2021 5:00 AM CDT Chart Check - Review Order Profile Entered On: 08/16/2021 6:18 EDT Performed On: 08/16/2021 5:00 EDT by Pau Armstrong RN - International Chart Check Powerplans Initiated/Discontinued as Appropriate : Yes All Active Orders Reviewed : Yes Pau Armstrong RN - International - 08/16/2021 6:18 EDT documented in this encounter Plan of Treatment Not on file documented as of this encounter Visit Diagnoses Not on filedocumented in this encounter Care Teams Farmworker Cranberry Relationship Specialty Start Date End Date Reji Castro MD [address] [place] [id number] PCP - General Adolescent Medicine 10/02/22 documented as of this encounter
--- OUTSIDE RECORDS SUMMARY | 2025-05-03 08:51 | XMS_ITS | Encounter Summary ---
Author Organization [employer] Address [address] [facility] [facility] [place] [address] Care Team Providers Care Civil Service Clerk Name Role Phone Reji Castro MD Primary Care Provider + [phone] Encounter Details Date Type Department Care Team (Late st Contact Info) Description 08/25/2021 Transcribed Document [facility] [place] Family Medicine [address] [place] [address] ProviderDelvin MD [address] [place] [address] Social History Tobacco Use Types Packs/Day Years Used Date Smoking Tobacco: Never Assessed Comments Unknown Sex and Gender Information Value Date Recorded Sex Assigned at Not on file Legal Sex Female 4:32 PM CDT Gender Identity Not on file Sexual Orientation Not on file documented as of this encounter Miscellaneous Notes * Cerner Conversion Note - Delvin ProviderMD - 08/25/2021 9:20 AM CDT Spiritual Care Assessment Entered On: 08/25/2021 10:19 EDT Performed On: 08/25/2021 9:20 EDT by Rome Burgos Chaplain-Non Cert General Information Initial Visit : No Follow-up Visit Number, Spiritual : 2 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 Ministry Provided to : Patient Spiritual/Emotional Acuity : Medium Spiritual Framework : Integrated, provides strength/resource Active in a [facility] : Yes Active in a [facility] Judaism Preference : Quaker Spiritual Leader Requested : No [employer] Sacrament of the Sick/Anointing Needed : No Depot Agent Follow-up Needed : No Rome Burgos Chaplain-Non Cert - 08/25/2021 10:13 EDT Spiritual Assessment Patient's Community/Relationship : Strength in patient's life Supportive/Healthy Relationships : Yes Supportive Judaism Community : Yes Patient's Sense of Meaning : Strength in patient's life Has Something to Look Forward to : Yes Disrupted Patient's Sense of Life Meaning : No Patient's Concept of God/the Sacred : Strength in patient's life Feels Connected to God/the Sacred : Yes God/the Spiritual Gives Strength : Yes Patient's Sense of Hope : Strength in patient's life Will to Continue : Yes Sense of Gratitude : Yes Spiritual Assessment Comment/Summary 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 PT is experiencing significant chest pain. She was desirous of prayer, explaining her involvement with her Quaker shinto as well. One of her daugthers is a Orthopedic Surgery Nurse here at [employer]. She reported she is living in a rented house in [place] as her home in [place] has [facility]. Depot Agent provided pastoral presence, support, and prayer. Family; two daughters, two sisters, one brother, and their families. Spirital Assessment Comment/Summary Report : SPIRITUAL ASSESSMENT COMMENT/SUMMARY No qualifying data available. Rome Burgos Chaplain-Non Cert - 08/25/2021 10:13 EDT Interventions Advance Directive Information Provided : No Emotional Support : Empathic/Engaged listening, Established trust, Feelings expressed, Hope strengths identified, Meaning strengths identified, Relationship strengths identified Spiritual and Judaism : Prayer shared Rome Burgos Chaplain-Non Cert - 08/25/2021 10:13 EDT Electronically signed by [facility] Conversion Hydrology Professor Cerner at 03/09/2023 8:33 PM CDT documented in this encounter Plan of Treatment Not on file documented as of this encounter Visit Diagnoses Not on filedocumented in this encounter Care Teams Civil Service Clerk Relationship Specialty Start Date End Date Reji Castro MD [address] [place] [address] PCP - General Adolescent Medicine 10/02/22 documented as of this encounter
--- OUTSIDE RECORDS SUMMARY | 2025-05-03 08:51 | XMS_ITS | Encounter Summary ---
Author Organization [employer] Address [address] [place] [address] Care Team Providers Care Driller Operator Name Role Phone Reji Castro MD Primary Care Provider + [phone] Encounter Details Date Type Department Care Team (Late st Contact Info) Description 08/25/2021 Transcribed Document [facility] [place] [address] [place] [address] ProviderDelvin MD [address] [place] [address] Social History Tobacco Use Types Packs/Day Years Used Date Smoking Tobacco: Never Assessed Comments Unknown Sex and Gender Information Value Date Recorded Sex Assigned at Not on file Legal Sex Female 4:32 PM CDT Gender Identity Not on file Sexual Orientation Not on file documented as of this encounter Miscellaneous Notes * Cerner Conversion Note - Delvin ProviderMD - 08/25/2021 9:20 AM CDT Rapid Response Team Documentation Entered On: 08/25/2021 9:22 EDT Performed On: 08/25/2021 9:20 EDT by ROBERTO KOHLI RN Rapid Response Event Chest X Ray Performed : Yes Rapid Response Team Event Interventions : Additional Lab Testing Patient Disposition Post Event : Transfer to telemetry Rapid Response Driller Operator #1 : ROBERTO KOHLI RN Rapid Response Driller Operator #2 : ROBERTO CAMARA, STAMP PRESSER ROBERTO KOHLI RN - 08/25/2021 9:33 EDT Code Status Pre Event : Full Code Code Status Post Event : Full Code Procedure w/Anesthesia 24 Hr Prior Event : No ROBERTO KOHLI RN - 08/25/2021 9:22 EDT Time Rapid Response Team Called : 08/25/2021 9:06 EDT Rapid Response Team Arrival Time : 08/25/2021 9:07 EDT Rapid Response Team Event End Time : 08/25/2021 9:45 EDT Rapid Response Event Intiated By : Other: 454 Rapid Response Team Initiation Reason : Chest pain ROBERTO KOHLI RN - 08/25/2021 9:20 EDT Rapid Response Team Initiation Reason Details : patient c/o chest pain 05/[address] Acosta paged and notified. ROBERTO KOHLI RN - 08/25/2021 9:33 EDT Rapid Response Admission Diagnosis : Acute kidney failure, unspecified Acute kidney failure, unspecified Bacteremia Chronic kidney disease, unspecified Heart failure, unspecified terminal press operator (current) use of anticoagulants Medical screening exam Other specified personal risk factors, not elsewhere classified Type 2 diabetes mellitus without complications Unspecified atrial fibrillation Rapid Response Medical Background : AIHA (autoimmune hemolytic anemia) (Patient Stated) Amblyopia (Patient Stated) Arthritis (Patient Stated) Atrial fibrillation (Patient Stated) Back pain (Patient Stated) Bioprosthetic mitral valve replacement (Medical) COPD - Chronic obstructive pulmonary disease (Medical) 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) Chronic kidney disease (Medical) Diabetes mellitus type II (Patient Stated) Diverticulosis (Patient Stated) Edema (Patient Stated) Fibromyalgia (Patient Stated) GERD - Gastro-esophageal reflux disease (Patient Stated) HLD - Hyperlipidemia (Medical) HTN - Hypertension (Medical) Hepatomegaly (Patient Stated) History of obstructive sleep apnea (Medical) Myocardial infarction (Patient Stated) Ovarian cyst (Patient Stated) Renal calculus (Patient Stated) Restless legs syndrome (Patient Stated) Thyroid disease (Patient Stated) frequent headache (Patient Stated) neuropathy hands and feet (Patient Stated) Rapid Response Allergies : Substance Category Reactions Severity anabolic steroids Drug Congestive heart failure buprenorphine Drug codeine Drug Detrol Drug Congestive heart failure Dye Drug glipiZIDE Drug Congestive heart failure metFORMIN Drug Congestive heart failure penicillins Drug propafenone Drug theophylline Drug Rapid Response Recent Vital Signs : 08/25/2021 05:52 Systolic Blood Pressure 80 08/25/2021 05:52 Diastolic Blood Pressure 43 08/25/2021 05:52 Heart Rate Monitored 74 08/25/2021 05:52 Respiratory Rate 18 08/25/2021 05:52 Temperature, Fahrenheit 97.6 08/25/2021 05:52 Oxygen Saturation 92 Rapid Response Recent Lab Results : 08/25/2021 06:27 Sodium Level 140 (136-146) 08/25/2021 06:27 Potassium Level 4.1 (3.5-5.1) 08/25/2021 06:27 Calcium Level 9.7 (8.4-10.1) 08/24/2021 07:00 Magnesium Level 1.9 (1.5-2.4) 08/25/2021 05:33 Glucose POC2 106 (70-110) 08/25/2021 06:27 Chloride Level LOW 99 (102-112) 08/25/2021 06:27 Carbon Dioxide Level HI 37 (21-32) 08/25/2021 06:27 Blood Urea Nitrogen 22 (7-22) 08/25/2021 06:27 Creatinine Level HI 1.40 (0.55-1.02) 08/25/2021 06:27 PT HI 19.3 (9.2-12.0) 08/25/2021 06:27 INR HI 1.9 (0.9-1.2) 08/11/2021 17:59 PTT HI 39.6 (22.0-33.0) 08/25/2021 06:27 Hgb LOW 7.7 (11.2-15.7) 08/25/2021 06:27 Hct LOW 26.5 (34.1-44.9) 08/25/2021 06:27 RBC LOW 3.00 (3.93-5.22) 08/25/2021 06:27 WBC 5.4 (4.5-10.5) 08/25/2021 06:27 Platelet Count 180 (163-369) 08/12/2021 11:50 Lactic Acid Level .93 (.90-1.70) 08/12/2021 00:22 Troponin I Ultra <0.015 (0.015-0.045) 08/13/2021 05:19 Lipase Level 224 (73-393) Weight/BMI : Clinical Weight/BMI CLINICALWEIGHT: 86.39 kg (08/11/21 21:21:00) CLINICALWEIGHT: 86.36 kg (08/11/21 16:19:00) Body Mass Index: 32.7 kg/m2 High (08/11/21 21:21:00) Body Mass Index: 32.7 kg/m2 High (08/11/21 16:19:00) ROBERTO KOHLI RN - 08/25/2021 9:20 EDT documented in this encounter Plan of Treatment Not on file documented as of this encounter Visit Diagnoses Not on filedocumented in this encounter Care Teams Driller Operator Relationship Specialty Start Date End Date Reji Castro MD [address] [place] [id number] PCP - General Adolescent Medicine 10/02/22 documented as of this encounter
--- OUTSIDE RECORDS SUMMARY | 2025-05-03 08:51 | XMS_ITS | Encounter Summary ---
Author Organization [employer] Address [address] [place] [address] Care Team Providers Care Real Property Appraiser Name Role Phone Reji Castro MD Primary Care Provider + [phone] Encounter Details Date Type Department Care Team (Late st Contact Info) Description 08/25/2021 Transcribed Document [facility] [place] [address] [place], [place] [id number] ProviderDelvin MD [address] [place] [address] Social History Tobacco Use Types Packs/Day Years Used Date Smoking Tobacco: Never Assessed Comments Unknown Sex and Gender Information Value Date Recorded Sex Assigned at Not on file Legal Sex Female 4:32 PM CDT Gender Identity Not on file Sexual Orientation Not on file documented as of this encounter Miscellaneous Notes * Cerner Conversion Note - Delvin Celestin MD - 08/25/2021 9:31 AM CDT Patient: IRINA TAMAYO Age: 56 [...] BID CeleXA: 40 mg, Oral, Daily Coumadin: 7.5 mg, Oral, Daily Dextrose 50% injection: 12.5 [...] cefTRIAXone: 2 Gram, 100 mL/Hr, IV Piggyback, [id number] diphenhydrAMINE: 25 mg, Oral, Q6H, PRN: Itching [...] Oral, Daily spironolactone: 25 mg, Oral, BID Documented Medications Documented ALPRAZolam 0.5 mg oral [...] Oral, BID cefTRIAXone 2 Gram, IV Piggyback, [id number] citalopram 20 mg tab 40 mg 2 [...] 25 mg 1 Tab, Oral, BID warfarin 7.5 mg tab 7.5 mg 1 Tab, Oral, Daily Continuous: (1) heparin/NaCl 0.45% [...] Bioprosthetic mitral valve replacement / SNOMED CT 958397407 / Confirmed Chronic kidney disease / SNOMED CT 6734177585 / Confirmed COPD - Chronic obstructive pulmonary disease / SNOMED CT 714276267 / Confirmed History of obstructive sleep apnea / IMO [id number] / Confirmed HLD - Hyperlipidemia / SNOMED CT 028597568 / Confirmed HTN - Hypertension / SNOMED CT 7767481058 / Confirmed Canceled: Atrial fibrillation / SNOMED CT 01385580, Active Problems (25) AIHA (autoimmune hemolytic anemia) [...] Last Charted Minimum Maximum Temp 97.6 (AUG 25 05:52) 97.6 (AUG 25 05:52) 98.3 (AUG 24 17:54) Apical HR 81 (AUG 24 20:17) 81 (AUG 24 20:17) 81 (AUG 24 20:17) Mon HR 74 (AUG 25 05:52) 73 (AUG 25 03:30) 86 (AUG 24 17:54) Resp Rate 18 (AUG 25 05:52) 16 (AUG 24 17:54) 18 (AUG 24 23:30) SBP L 80 (AUG 25 05:52) L 80 (AUG 25 05:52) 111 (AUG 24 17:54) DBP L 43 (AUG 25 05:52) L 43 (AUG 25 05:52) L 58 (AUG 24 17:54) MAP 54 (AUG 25 05:52) 54 (AUG 25 05:52) 66 (AUG 25 03:00) SpO2 L 92 (AUG 25 05:52) L 92 (AUG 25 05:52) 99 (AUG 25 03:30) General: No acute distress. Eye: Extraocular movements [...] review: Labs (Last four charted values) WBC 5.4 (AUG 25) 5.6 (AUG 24) 6.1 (AUG 23) 7.0 (AUG 22) HB L 7.7 (AUG 25) L 7.8 (AUG 24) L 7.6 (AUG 23) L 7.5 (AUG 22) HCT L 26.5 (AUG 25) L 26.6 (AUG 24) L 26.0 (OCT 02) L 25.6 (AUG 22) Plt 180 (AUG 25) 194 (AUG 03) 181 (AUG 23) 181 (AUG 22) Na 140 (AUG 25) 137 (AUG 03) 139 (AUG 23) 138 (AUG 22) K 4.1 (AUG 25) 3.9 (AUG 03) 3.8 (AUG 02) 3.7 (AUG 22) Cl L 99 (AUG 25) L 99 (AUG 03) L 101 (AUG 23) 102 (AUG 22) CO2 H 37 (AUG 25) H 35 (AUG 24) H 34 (AUG 23) H 33 (AUG 22) BUN 22 (AUG 25) H 23 (AUG 24) 19 (AUG 23) 19 (AUG 22) Cr H 1.40 (AUG 25) H 1.40 (AUG 24) H 1.40 (AUG 23) H 1.40 (AUG 22) Glu R 91 (AUG 25) H 120 (AUG 24) H 118 (AUG 23) H 137 (AUG 22) Ca 9.7 (AUG 25) 9.4 (AUG 24) 9.1 (AUG 23) 8.9 (AUG 22) Lactic .93 (AUG 12) L .73 (AUG 11) PT H 19.3 (AUG 25) H 18.8 (AUG 24) H 18.4 (AUG 23) H 14.4 (AUG 22) INR H 1.9 (AUG 25) H 1.8 (AUG 24) H 1.8 (AUG 23) H 1.4 (AUG 22) PTT H 39.6 (AUG 11) AST 17 [...] (AUG 11) <0.015 (AUG 11) . AUG 25 06:27 140 L 99 22 / 91 4.1 H 37 H 1.40 \ AUG 25 06:27 \ L 7.7 / 5.4 180 / L 26.5 \ Impression and Plan Dx and Plan [...] T sat 6%. S/P IV iron. Recommendations: UOP is excellent on Diuretics. Renal function stable. Hypotension - Continue to hold aldactone and antihypertensive Meds for SBP less than 110 mmHg. Will decrease bumex to 1 mg bid. Monitor I/O Avoid nephrotoxic agents. Monitor GFR adjust medications. documented in this encounter Plan of Treatment Not on file documented as of this encounter Visit Diagnoses Not on filedocumented in this encounter Care Teams Real Property Appraiser Relationship Specialty Start Date End Date Reji Castro MD [address] [place] [id number] PCP - General Adolescent Medicine 10/02/22 documented as of this encounter
--- OUTSIDE RECORDS SUMMARY | 2025-05-03 08:51 | XMS_ITS | Encounter Summary ---
Author Organization [employer] Address [address] [place] [address] Care Team Providers Care Traction Power Engineer Name Role Phone Reji Castro MD Primary Care Provider [phone] Encounter Details Date Type Department Care Team (Late st Contact Info) Description 08/12/2021 Transcribed Document [facility] [place] [address] [place] [address] ProviderDelvin MD [address] [place] [address] Social History Tobacco Use Types Packs/Day Years Used Date Smoking Tobacco: Never Assessed Comments Unknown Sex and Gender Information Value Date Recorded Sex Assigned at Not on file Legal Sex Female 4:32 PM CDT Gender Identity Not on file Sexual Orientation Not on file documented as of this encounter Miscellaneous Notes * Cerner Conversion Note - Delvin ProviderMD - 08/12/2021 5:00 AM CDT Chart Check - Review Order Profile Entered On: 08/12/2021 8:03 EDT Performed On: 08/12/2021 5:00 EDT by Cherri Webb V, RN Chart Check Powerplans Initiated/Discontinued as Appropriate : Yes All Active Orders Reviewed : Yes Cherri Webb V, RN - 08/12/2021 8:03 EDT documented in this encounter Plan of Treatment Not on file documented as of this encounter Visit Diagnoses Not on filedocumented in this encounter Care Teams Traction Power Engineer Relationship Specialty Start Date End Date Reji Castro MD [address] [place] [address] PCP - General Adolescent Medicine 10/02/22 documented as of this encounter
--- OUTSIDE RECORDS SUMMARY | 2025-05-03 08:51 | XMS_ITS | Encounter Summary ---
Author Organization [employer] Address [address] [place] [address] Care Team Providers Care Commutator Undercutter Name Role Phone Reji Castro MD Primary Care Provider [phone] Encounter Details Date Type Department Care Team (Late st Contact Info) Description 08/25/2021 Transcribed Document [facility] [place] [facility] [address] [place], [place] [address] ProviderDelvin MD [address] [place] [address] Social History Tobacco Use Types Packs/Day Years Used Date Smoking Tobacco: Never Assessed Comments Unknown Sex and Gender Information Value Date Recorded Sex Assigned at Not on file Legal Sex Female 4:32 PM CDT Gender Identity Not on file Sexual Orientation Not on file documented as of this encounter Miscellaneous Notes * Cerner Conversion Note - Delvin Celestin MD - 08/25/2021 8:16 AM CDT Patient: IRINA TAMAYO Age: 56 years Sex: Female : 1965 Associated Diagnoses: None Author: Andrea Moraes, Resident Pharmacist Pharmacy Consult - Warfarin HPI: 56 y/o F presenting to [facility] with history of COPD, atrial fibrillation, CKD [...] (08/25): hospitalist on service now Drug Interactions: - MODERATE: warfarin + any [...] cefTRIAXone: 2 Gram, 100 mL/Hr, IV Piggyback, [id number]. citalopram: 40 mg, Oral, Daily. diphenhydrAMINE: 25 mg, Oral, Q6H, PRN: Itching. docusate-senna: 1 Tab, Oral, BID. famotidine: 20 [...] 12.5 mg, IV Push, Q6H, PRN: Nausea. spironolactone: 25 mg, Oral, BID. warfarin: 7.5 mg, Oral, Daily. Allergies (5) Active Reaction [...] (AUG 25 05:52) 99 (AUG 25 03:30) Labs (Last four charted values) WBC 5.4 (AUG 25) 5.6 (AUG 03) 6.1 (AUG 23) 7.0 (AUG 22) HB L 7.7 (AUG 04) L 7.8 (AUG 03) L 7.6 (AUG 02) L 7.5 (AUG 22) HCT L 26.5 (AUG 04) L 26.6 (AUG 03) L 26.0 (AUG 02) L 25.6 (AUG 22) Plt 180 (AUG 25) 194 (AUG 24) 181 (AUG 23) 181 (AUG 22) Na 140 (AUG 25) 137 (AUG 24) 139 (AUG 23) 138 (AUG 22) K 4.1 (AUG 25) 3.9 (AUG 24) 3.8 (AUG 23) 3.7 (AUG 22) Cl L 99 (AUG [...] heparin gtt Date 08/25 08/26 INR 1.9 Dose [10 mg] Bridge [heparin gtt] Creatinine Clearance (Current Encounter/Past 24 Hours) Creatinine Level 1.40 mg/dL HI 08/25/2021 07:33 Bun/Creatinine 15.7 08/25/2021 07:33 Intake & Output Totals Last 24 Hours (7a-7a) Input Total: 1020 mL Output Total: 2900 mL Balance: -1880 mL A/P: 1.) Per Dr. Solorzano last week at multidisciplinary rounds: tentative plan is keep patient in hospital until INR is therapeutic 2.) INR today (08/25) is 1.9, which is subtherapeutic. Will continue heparin gtt bridge + give increased dose of 10 mg PO x1. - INR subtherapeutic since admission - reassess INR tomorrow (08/26) then re-dose based on result 3.) Pt warfarin was held for 5 days (08/14-08/18) - no surprise we are seeing pt's INR slowly keep up given such a prolonged hold 4.) Daily PT/INR ordered. Goal INR 2.5-3.5. H/H still low. Defer transfusion decision to MD. Continue to monitor closely for any s/sx of bleeding. - unclear if outpatient INR target was 2-3 or 2.5-3.5 - unlikely warfarin 6 mg PO daily will reach therapeutic INR at this point 5.) Possible drug interactions noted above. No contraindicated or major interactions noted. 6.) Pharmacy will continue to follow. Please reach out with any questions. 7.) Pt will be transferred to [id number] 2/2 chest pain - will pass off to clinical pharmacy team covering that floor. Thank you, Andrea Moraes, PharmD PGY1 Sluice Tender Pager: [phone], Ext. [phone] documented in this encounter Plan of Treatment Not on file documented as of this encounter Visit Diagnoses Not on filedocumented in this encounter Care Teams Commutator Undercutter Relationship Specialty Start Date End Date Reji Castro MD [address] [place] [address] PCP - General Adolescent Medicine 10/02/22 documented as of this encounter
--- OUTSIDE RECORDS SUMMARY | 2025-05-03 08:51 | XMS_ITS | Encounter Summary ---
Author Organization [employer] Address [address] [place] [address] Care Team Providers Care Emergency Manager Name Role Phone Reji Castro MD Primary Care Provider [phone] Encounter Details Date Type Department Care Team (Late st Contact Info) Description 08/19/2021 Transcribed Document [facility] [place] [facility] [place] [address] ProviderDelvin MD [facility] [place] [address] Social History Tobacco Use Types Packs/Day Years Used Date Smoking Tobacco: Never Assessed Comments Unknown Sex and Gender Information Value Date Recorded Sex Assigned at Not on file Legal Sex Female 4:32 PM CDT Gender Identity Not on file Sexual Orientation Not on file documented as of this encounter Miscellaneous Notes * Cerner Conversion Note - Delvin ProviderMD - 08/19/2021 2:00 AM CDT Photographic Developer And Printer Details Entered On: 08/19/2021 3:57 EDT Performed On: 08/19/2021 2:00 EDT by Kayy Garcia, RN Order Details Transport Mode Order Detail : Wheelchair Isolation Precautions Order Detail : Standard Precautions Order Detail : 0 IV Order Detail : 1 Oxygen Order Detail : 1 Nurse Collect Order Detail : 0 Lift/Transfer : Independent Central Line Order Detail : No Room Service : Appropriate Arterial Line : No Patient Needs Meds Crushed/Liquid : No Kayy Garcia, RN - 08/19/2021 3:56 EDT documented in this encounter Plan of Treatment Not on file documented as of this encounter Visit Diagnoses Not on filedocumented in this encounter Care Teams Emergency Manager Relationship Specialty Start Date End Date Reji Castro MD [address] [place] [address] PCP - General Adolescent Medicine 10/02/22 documented as of this encounter
--- OUTSIDE RECORDS SUMMARY | 2025-05-03 08:51 | XMS_ITS | Encounter Summary ---
Author Organization [employer] Address [address] [place] [address] Care Team Providers Care Piano Tuner Name Role Phone Reji Castro MD Primary Care Provider [phone] Encounter Details Date Type Department Care Team (Late st Contact Info) Description 08/12/2021 Transcribed Document [facility] [place] [address] [place], [place] [id number] ProviderDelvin MD [address] [place] [address] Social History Tobacco Use Types Packs/Day Years Used Date Smoking Tobacco: Never Assessed Comments Unknown Sex and Gender Information Value Date Recorded Sex Assigned at Not on file Legal Sex Female 4:32 PM CDT Gender Identity Not on file Sexual Orientation Not on file documented as of this encounter Miscellaneous Notes * Cerner Conversion Note - Delvin ProviderMD - 08/12/2021 8:46 AM CDT Bronchodilator Assessment Score, RT Entered On: 08/12/2021 8:46 EDT Performed On: 08/12/2021 8:46 EDT by TAWNYA AVILES, CORRESPONDENCE RENEW CLERK Bronchodilator Assessment Score, RT Pulmonary History, Bronchodilator Assessment Score : Pulmonary history Smoking History, Bronchodilator Assessment Score : Smoking history > 10 pack years Chest Xray Results, Bronchodilator Assessment Sc : Clear or none Surgical Status, Bronchodilator Assessment Score : No surgery Respiratory Status, Bronchodilator Assessment Sc : Regular pattern - no dyspnea Breath Sounds, Bronchodilator Assessment Score : Clear Oxygen Level, Bronchodilator Assessment Score : No oxygen Cough, Bronchodilator Assessment Score : Strong spontaneous/non-productive Assessment Score, Bronchodilator Assessment Score : 3 TAWNYA AVILES RRT - 08/12/2021 8:46 EDT documented in this encounter Plan of Treatment Not on file documented as of this encounter Visit Diagnoses Not on filedocumented in this encounter Care Teams Piano Tuner Relationship Specialty Start Date End Date Reji Castro MD [address] [place] [address] PCP - General Adolescent Medicine 10/02/22 documented as of this encounter
--- OUTSIDE RECORDS SUMMARY | 2025-05-03 08:51 | XMS_ITS | Encounter Summary ---
Author Organization [employer] Address [address] [place] [address] Care Team Providers Care School Director Name Role Phone Reji Castro MD Primary Care Provider [phone] Encounter Details Date Type Department Care Team (Late st Contact Info) Description 08/19/2021 Transcribed Document [facility] [place] [address] [place] [address] ProviderDelvin MD [address] [place] [address] Social History Tobacco Use Types Packs/Day Years Used Date Smoking Tobacco: Never Assessed Comments Unknown Sex and Gender Information Value Date Recorded Sex Assigned at Not on file Legal Sex Female 4:32 PM CDT Gender Identity Not on file Sexual Orientation Not on file documented as of this encounter Miscellaneous Notes * Cerner Conversion Note - Delvin ProviderMD - 08/19/2021 5:00 PM CDT Chart Check - Review Order Profile Entered On: 08/19/2021 17:42 EDT Performed On: 08/19/2021 17:00 EDT by WILLIAMS HANEY, RN Chart Check All Active Orders Reviewed : Yes WILLIAMS HANEY RN - 08/19/2021 17:42 EDT documented in this encounter Plan of Treatment Not on file documented as of this encounter Visit Diagnoses Not on filedocumented in this encounter Care Teams School Director Relationship Specialty Start Date End Date Reji Castro MD [address] [place] [id number] PCP - General Adolescent Medicine 10/02/22 documented as of this encounter
--- OUTSIDE RECORDS SUMMARY | 2025-05-03 08:51 | XMS_ITS | Encounter Summary ---
Author Organization [employer] Address [address] [place] [address] Care Team Providers Care Radio Repair Teacher Name Role Phone Reji Castro MD Primary Care Provider [phone] Encounter Details Date Type Department Care Team (Late st Contact Info) Description 08/12/2021 Transcribed Document [facility] [place] [facility] [place] [address] ProviderDelvin MD [facility] [place] [address] Social History Tobacco Use Types Packs/Day Years Used Date Smoking Tobacco: Never Assessed Comments Unknown Sex and Gender Information Value Date Recorded Sex Assigned at Not on file Legal Sex Female 4:32 PM CDT Gender Identity Not on file Sexual Orientation Not on file documented as of this encounter Miscellaneous Notes * Cerner Conversion Note - Delvin ProviderMD - 08/12/2021 2:00 AM CDT Promotion Producer Details Entered On: 08/12/2021 0:22 EDT Performed On: 08/12/2021 2:00 EDT by Cherri Webb V RN Order Details Transport Mode Order Detail : Ambulatory Isolation Precautions Order Detail : Standard Precautions Order Detail : 0 IV Order Detail : 1 Oxygen Order Detail : 0 Nurse Collect Order Detail : 0 Lift/Transfer : Independent Central Line Order Detail : No Room Service : Appropriate Arterial Line : No Patient Needs Meds Crushed/Liquid : No Cherri Webb V, RN - 08/12/2021 0:22 EDT documented in this encounter Plan of Treatment Not on file documented as of this encounter Visit Diagnoses Not on filedocumented in this encounter Care Teams Radio Repair Teacher Relationship Specialty Start Date End Date Reji Castro MD [address] [place] [id number] PCP - General Adolescent Medicine 10/02/22 documented as of this encounter
--- OUTSIDE RECORDS SUMMARY | 2025-05-03 08:51 | XMS_ITS | Encounter Summary ---
Author Organization [employer] Address [address] [place] [address] Care Team Providers Care Comfort Advisor Name Role Phone Reji Castro MD Primary Care Provider [phone] Encounter Details Date Type Department Care Team (Late st Contact Info) Description 08/19/2021 Transcribed Document [facility] [place] [facility] [place] [address] ProviderDelvin MD [address] [place] [address] Social History Tobacco Use Types Packs/Day Years Used Date Smoking Tobacco: Never Assessed Comments Unknown Sex and Gender Information Value Date Recorded Sex Assigned at Not on file Legal Sex Female 4:32 PM CDT Gender Identity Not on file Sexual Orientation Not on file documented as of this encounter Miscellaneous Notes * Cerner Conversion Note - Delvin Celestin MD - 08/19/2021 8:30 AM CDT DATE OF PROCEDURE: 08/19/2021 SURGEON: Sandeep Holliday MD 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 PROCEDURE PERFORMED: Right IJ PowerPort placement. MEDICAL TRANSCRIPTION RADIOLOGY: Cherri Ya. ANESTHESIA: Local MAC. FINDINGS: An 8-Armenian single lumen PowerPort was placed using a right posterior IJ approach. DESCRIPTION OF PROCEDURE: The patient was brought to the operating room where she was monitored by Anesthesia and IV sedation given. She was sterilely prepped and draped. Time-out was performed per protocol. 1% lidocaine with epinephrine was used for local anesthesia. Initial attempts were made at isolating the right subclavian vein. This was unsuccessful. We then proceeded with a right posterior IJ approach. Using the Seldinger technique and fluoroscopy, the J-wire was advanced into the superior vena cava. A pocket was created over the right anterior chest wall. A peel-away catheter and dilator was then passed over the J-wire under fluoroscopic guidance with removal of a dilator and J-wire followed by passage of the 8-Armenian single-lumen catheter. Once again, fluoroscopy was used to direct the tip of the catheter into the proximal superior vena cava just above the right atrium. The catheter was then tunneled to our pocket and attached to the single dome port. It was aspirated and flushed with heparin. It was secured in the pocket, which was then closed with a running 3-0 Vicryl subcutaneous stitch followed by running 4-0 Monocryl subcuticular stitch. A small incision in the neck was closed with a buried 4-0 Monocryl stitch. Dermabond was placed over the incisions. The patient tolerated the procedure well. There were no immediate complications. Sponge and needle counts were correct. The patient was taken to the Recovery in stable condition. /[id number] MD DOTTIE Pollard/TONYA / DOTTIE / KENDRA /[id number] Electronically signed by Lanny [facility] Conversion Instrument Maintenance Supervisor Cerner at 03/09/2023 8:44 PM CDT documented in this encounter Plan of Treatment Not on file documented as of this encounter Visit Diagnoses Not on filedocumented in this encounter Care Teams Comfort Advisor Relationship Specialty Start Date End Date Reji Castro MD [address] [place] [address] PCP - General Adolescent Medicine 10/02/22 documented as of this encounter
--- OUTSIDE RECORDS SUMMARY | 2025-05-03 08:51 | XMS_ITS | Encounter Summary ---
Author Organization [employer] Address [address] [place] [address] Care Team Providers Care Manager Clinic Name Role Phone Reji Castro MD Primary Care Provider [phone] Encounter Details Date Type Department Care Team (Late st Contact Info) Description 08/16/2021 Transcribed Document [facility] [address] [place] [address] Loren Solorzano MD [address] [place] [address] [address] [place] [id number] Social History Tobacco Use Types Packs/Day Years Used Date Smoking Tobacco: Never Assessed Comments Unknown Sex and Gender Information Value Date Recorded Sex Assigned at Not on file Legal Sex Female 4:32 PM CDT Gender Identity Not on file Sexual Orientation Not on file documented as of this encounter Miscellaneous Notes * Cerner Conversion Note - Loren Solorzano MD - 08/16/2021 1:47 PM EDT Patient: IRINA TAMAYO Age: 56 years Sex: Female : 1965 Associated Diagnoses: None Author: LOREN SOLORZANO MD-INT Subjective Patient feeling better today. No fever or chills On heparin drip. Review of Systems Constitutional: No fever, No [...] mg, 14 mL, 128 mL/Hr, IV Piggyback, [id number] Dextrose 50% injection: 12.5 Gram, IV Push, [...] mL 700 mg 14 mL, IV Piggyback, [id number] famotidine 20 mg tab 20 mg 1 [...] Bioprosthetic mitral valve replacement / SNOMED CT 887538053 / Confirmed Chronic kidney disease / SNOMED CT 5672056321 / Confirmed COPD - Chronic obstructive pulmonary disease / SNOMED CT 100406088 / Confirmed History of obstructive sleep apnea / IMO 61349825 / Confirmed HLD - Hyperlipidemia / SNOMED CT 849669054 / Confirmed HTN - Hypertension / SNOMED CT 3711717433 / Confirmed Canceled: Atrial fibrillation / SNOMED CT 87243386, Active Problems (25) AIHA (autoimmune hemolytic anemia) [...] hrs) Last Charted Minimum Maximum Temp 98 ([facility] 10:50) 97.6 ([facility] 06:00) 98 ([facility] 18:00) Apical HR 76 ([facility] 20:32) 76 ([facility] 20:32) 76 ([facility] 20:32) Mon HR 81 ([facility] 10:50) 67 ([facility] 14:52) 85 ([facility] 18:00) Resp Rate 18 ([facility] 10:50) 14 ([facility] 23:00) 19 ([facility] 18:00) SBP 112 ([facility] 10:50) 95 ([facility] 14:52) 114 ([facility] 23:00) DBP 60 ([facility] 10:50) L 45 ([facility] 14:52) 63 ([facility] 18:00) MAP 74 ([facility] 10:50) 63 ([facility] 23:00) 83 ([facility] 18:00) SpO2 97 ([facility] 10:50) L 92 ([facility] 14:52) 99 ([facility] 03:39) General: Alert and oriented, No acute distress. [...] mood & affect. Review / Management AUG 16 02:19 137 106 H 23 / H 112 4.4 25 H 1.40 \ No Radiology Results Found Results review: Labs (Last four charted values) WBC 7.1 (SEP 24) 6.7 (SEP 23) 5.5 (SEP 22) 5.5 (SEP 22) HB L 7.5 (SEP 25) L 7.9 (SEP 24) L 8.0 (SEP 23) L 8.1 (SEP 22) HCT L 25.9 (SEP 25) L 26.7 (SEP 24) L 27.2 (SEP 23) L 26.9 (SEP 22) Plt 197 (SEP 24) 210 [...] 22) 30 (SEP 22) BUN H 23 (SEP 25) H 28 (SEP [...] L .73 (SEP 20) PT H 17.2 (SEP 25) H 18.2 (SEP 24) H 17.2 (SEP 23) H 17.0 (SEP 23) INR H 1.7 (JUL 25) H 1.8 (SEP 24) H 1.7 (SEP 23) H 1.6 (SEP 23) PTT H 39.6 (SEP 20) AST 19 (SEP 24) 18 (SEP 22) 17 (SEP 22) 16 (SEP 21) ALT 17 (SEP 24) 17 (SEP 22) 19 (SEP 22) 23 (SEP 21) ALK P 101 (SEP 24) 102 (SEP 22) 102 (SEP 22) 110 (SEP 21) T Bili 0.4 (SEP 24) 0.4 (SEP 22) 0.5 (SEP 22) 0.6 (SEP 21) PTN 7.0 (JUL 24) 7.3 (SEP 22) 6.9 (SEP 22) 7.6 (SEP ) ALB 3.5 (JUL 24) 3.8 (SEP 22) 3.9 (SEP 22) 3.9 (SEP ) Lipase 224 (AUG 13) Troponin <0.015 (AUG 12) <0.015 (JUL 20) <0.015 (JUL 20) . Medication Changes from Previous Midnight to Current New Medications: acetaminophen-oxyCODONE (Percocet 10/325) 1 Tab, Oral, Tab, Q6H, PRN for Pain (Moderate 4-6), Routine, Start 08/15/21 16:18:00 EDT BIN HERNANDEZ, DO-INT ceFAZolin + Sodium Chloride 0.9% intravenous solution 50 mL 1 Gram, IV Piggyback, Inj, Q8HInt, infuse over 30 Minute(s), Routine, Start 08/16/21 9:00:00 EDT, 100 mL/Hr, Indication: Endocarditis LISA RICKETTS MD-INF diphenhydrAMINE 25 mg, Oral, Tab, Q6H, PRN for Itching, Routine, Start 08/15/21 16:17:00 EDT, 08/15/21 16:17:00 EDT BIN HERNANDEZ, DO-INT magnesium hydroxide (Milk of Magnesia 8% oral suspension) 30 mL, Oral, Liquid, Daily, PRN for Constipation, Routine, Start 08/15/21 19:27:00 EDT BIN HERNANDEZ, DO-INT Discontinued Medications: acetaminophen-hydrocodone ([place] 10 mg-325 mg oral tablet) 1 Tab, Oral, Tab, Q6H, PRN for Pain (Moderate 4-6), Routine, Start 08/15/21 10:11:00 EDT BNI HERNANDEZ, DO-INT acetaminophen-oxyCODONE (acetaminophen-oxyCODONE 325 mg-10 mg oral tablet) 1 Tab, Oral, Tab, Q8H, PRN for Pain (Severe 7-10), Routine, Start 08/12/21 12:28:00 EDT BIN HERNANDEZ, DO-INT ceFAZolin 1 Gram, IV Piggyback, Inj, Q8HInt, infuse over 30 Minute(s), Routine, Start 08/12/21 17:00:00 EDT, 100 mL/Hr, Indication: Endocarditis LISA RICKETTS MD-INF traMADol 50 mg, Oral, Tab, Q6H, PRN for Pain (Moderate 4-6), Routine, Start 08/11/21 20:56:00 EDT, 08/11/21 20:56:00 EDT BIN HERNANDEZ, DO-INT warfarin (Coumadin) 6 mg, Oral, Tab, Daily, Routine, Start 08/11/21 20:44:00 EDT, 08/11/21 20:44:00 EDT REJI GUERRA MD Impression and Plan #CN Staph bacteremia, cultures [...] Hold home meds SSI #Depression Celexa #Pain [place] 10 mg every 6 hours as needed [...] on filedocumented in this encounter Care Teams Manager Clinic Relationship Specialty Start Date End Date Reji Castro MD [address] [place] [id number] PCP - General Adolescent Medicine 10/02/22 documented as of this encounter
--- OUTSIDE RECORDS SUMMARY | 2025-05-03 08:51 | XMS_ITS | Encounter Summary ---
Author Organization [employer] Address [address] [place] [address] Care Team Providers Care Carburizing Furnace Operator Name Role Phone Reji Castro MD Primary Care Provider [phone] Encounter Details Date Type Department Care Team (Late st Contact Info) Description 08/25/2021 Transcribed Document [facility] [place] [address] [place] [address] ProviderDelvin MD [address] [place] [address] Social History Tobacco Use Types Packs/Day Years Used Date Smoking Tobacco: Never Assessed Comments Unknown Sex and Gender Information Value Date Recorded Sex Assigned at Not on file Legal Sex Female 4:32 PM CDT Gender Identity Not on file Sexual Orientation Not on file documented as of this encounter Miscellaneous Notes * Cerner Conversion Note - Delvin Celestin MD - 08/25/2021 3:50 PM CDT Patient: IRINA TAMAYO Age: 56 years Sex: Female : 1965 Associated Diagnoses: None Author: FAIZA YOUSSEF DO Subjective pt seen and examined 08/25 tells me that for the last 3 days she hasn't had much energy and hasn't been very active. she tells me that she hurts in all her joints and her muscles. she tells me that she feels that way when her blood counts are lower than 8. she tells me that her cutting machine tender decorative has recommended she stay above 8 for her hemoglobin she denies bleeding she is eating without difficulty she relates left sternal and inferior breast chest pain, not radiating, started this am and has not resolved but has improved so that now it is only slightly noted states that earlier she was short of breath with the pain. she also states that she is sob with exertion in her room recently Review of Systems Constitutional: No fever, No [...] cefTRIAXone: 2 Gram, 100 mL/Hr, IV Piggyback, [id number] diphenhydrAMINE: 25 mg, Oral, Q6H, PRN: Itching [...] Oral, BID cefTRIAXone 2 Gram, IV Piggyback, [id number] citalopram 20 mg tab 40 mg 2 [...] Bioprosthetic mitral valve replacement / SNOMED CT 348568872 / Confirmed Chronic kidney disease / SNOMED CT 9004847249 / Confirmed COPD - Chronic obstructive pulmonary disease / SNOMED CT 086382782 / Confirmed History of obstructive sleep apnea / IMO 82775974 / Confirmed HLD - Hyperlipidemia / SNOMED CT 277059576 / Confirmed HTN - Hypertension / SNOMED CT 1165581883 / Confirmed Canceled: Atrial fibrillation / SNOMED CT 83991573, Active Problems (25) AIHA (autoimmune hemolytic anemia) [...] 20:17) 81 (AUG 24 20:17) Mon HR 81 (AUG 25 14:19) 73 (AUG 25 03:30) 86 (AUG 24 17:54) Resp Rate 18 (AUG 25 05:52) 16 (AUG 24 17:54) 18 (AUG 24 23:30) SBP 92 (AUG 25 14:19) L 80 (AUG 25 05:52) 111 (AUG 24 17:54) DBP L 51 (AUG 25 14:19) L 43 (AUG 25 05:52) L 58 (AUG 24 17:54) MAP 71 (AUG 25 14:19) 54 (AUG 25 05:52) 71 (AUG 25 14:19) SpO2 96 (AUG 25 14:19) L 92 (AUG 25 05:52) 99 (AUG 25 03:30) General: Alert and oriented, No acute distress, [...] mood & affect. Review / Management AUG 25 06:27 140 L 99 22 / 91 4.1 H 37 H 1.40 \ AUG 25 06:27 \ L 7.7 / 5.4 180 / L 26.5 \ Radiology Results (Last 48 hours) [id number] -- 08/11/2021 21:21 CR Chest 1 Vw Portable (08/25/2021 10:14) Result: PORTABLE CHEST 08/25/2021 9:34 AM HISTORY: Precordial chest pain .COMPARISON: August 22, 2021.FINDINGS: The heart is stable in size. The lung cisneros demonstrate nosignificant change in the diffuse interstitial [...] 25) L 26.6 (AUG 24) L 26.0 (AUG 23) L 25.6 (AUG 22) Plt 180 (AUG [...] 3.9 (AUG 18) 3.5 (JUL 24) 3.8 (JUL 22) 3.9 (AUG 13) Lipase 224 (AUG 13) Troponin <0.015 (AUG 25) <0.015 (AUG 12) <0.015 (SEP 20) <0.015 (SEP 20) . Medication Changes from Previous Midnight to Current New Medications: bumetanide (Bumex) 1 mg, Oral, Tab, BID, Routine, Start 08/25/21 17:00:00 EDT, 08/25/21 12:13:00 EDT MAURA CARROLL MD warfarin 1 Each, Oral, MISC, Weekly, Start 08/25/21 18:00:00 EDT FAIZA YOUSSEF DO warfarin (Coumadin) 10 mg, Oral, Tab, 1-Time, Start 08/25/21 18:00:00 EDT, Stop 08/25/21 18:00:00 EDT FAIZA YOUSSEF DO Discontinued Medications: bumetanide (Bumex) 2 mg, Oral, Tab, BID, NOW, Start 08/18/21 18:34:00 EDT, 08/18/21 18:34:00 EDT MAURA CARROLL MD famotidine 20 mg, Oral, Tab, At Bedtime, Routine, Start 08/12/21 21:00:00 EDT, 08/12/21 12:10:00 EDT FAIZA YOUSSEF DO warfarin (Coumadin) 6 mg, Oral, Tab, Daily, Routine, Start 08/23/21 18:00:00 EDT, 08/11/21 20:44:00 EDT LOREN TENA MD-INT warfarin (Coumadin) 7.5 mg, Oral, Tab, Daily, [...] replacement 08/18/2021. po Coumadin and IV heparin resumed can have home iv abx at time [...] Hold home meds SSI Depression Celexa Pain [place] 10 mg every 6 hours as needed CODE STATUS. Full code Dispo: H/H stable, will transfuse one unit prbcs to reach goal hgb f/u trop need therapeutic inr for discharge, pharm managing Time spent 26 minutes Electronically signed by Lanny [facility] Conversion Contact Center Rep Cerner at 03/09/2023 8:51 PM CDT documented in this encounter Plan of Treatment Not on file documented as of this encounter Visit Diagnoses Not on filedocumented in this encounter Care Teams Carburizing Furnace Operator Relationship Specialty Start Date End Date Reji Castro MD [address] [place] [id number] PCP - General Adolescent Medicine 10/02/22 documented as of this encounter
--- OUTSIDE RECORDS SUMMARY | 2025-05-03 08:51 | XMS_ITS | Encounter Summary ---
Author Organization [employer] Address [address] [place] [address] Care Team Providers Care Putty And Patch Worker Name Role Phone Reji Castro MD Primary Care Provider [phone] Encounter Details Date Type Department Care Team (Late st Contact Info) Description 08/12/2021 Transcribed Document [facility] [place] [facility] [place] [address] ProviderDelvin MD [facility] [place] [address] Social History Tobacco Use Types Packs/Day Years Used Date Smoking Tobacco: Never Assessed Comments Unknown Sex and Gender Information Value Date Recorded Sex Assigned at Not on file Legal Sex Female 4:32 PM CDT Gender Identity Not on file Sexual Orientation Not on file documented as of this encounter Miscellaneous Notes * Cerner Conversion Note - Delvin Celestin MD - 08/12/2021 7:24 PM CDT Patient: IRINA TAMAYO Age: 56 [...] her port could not be accessed. Her operator catalyst concentration aspirated fluid from the port that was evidently purulent. I have not yet been able to track down that culture. After the aspiration she developed fever to 103, severe CHEUNG, myalgias and arthralgias. She was admitted to [facility]. She was in the hospital for 10 [...] antibiotics. On 08/08 she presented [address] a [facility] after she developed severe CHEUNG and myalgias w/o prominent fever. She was subsequently contacted and told to report to [facility] because she had + blood cutures concerning for an infected portacath +/- PVE. I contacted the micro lab at [facility] and was told that she did [...] to have Cr 2.5, ProBNP 813, H/H 9.5/31, INR 1.8. 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 Eye: chronic blindness left eye, No recent visual problem. Ear/Nose/Mouth/Throat: No decreased hearing, No sore throat. Respiratory: No shortness of breath, No cough, No sputum production. Cardiovascular: Peripheral edema, No chest pain. Gastrointestinal: No nausea, No vomiting, No diarrhea, No abdominal pain. Genitourinary: No dysuria. Immunologic: Not immunocompromised. Musculoskeletal: Joint pain, Muscle pain, No back pain. Integumentary: No rash. Neurologic: Headache. Health Status Current medications: (Selected) Inpatient Medications Ordered ALPRAZolam: 0.5 mg, Oral, TID, PRN: Anxiety CeleXA: 40 mg, Oral, Daily Coumadin: 6 mg, Oral, Daily DAPTOmycin + Sodium Chloride 0.9% intravenous solution 50 mL: 700 mg, 14 mL, 128 mL/Hr, IV Piggyback, [id number] DAPTOmycin + Sodium Chloride 0.9% intravenous solution 50 mL: 700 mg, 14 mL, 128 mL/Hr, IV Piggyback, [id number] Dextrose 50% injection: 12.5 Gram, IV Push, Q15Min, PRN: Other (See Comment) Dextrose 50% injection: 25 Gram, IV Push, Q15Min, PRN: Other (See Comment) Dextrose 50% injection: 25 Gram, IV Push, Q15Min, PRN: Other (See Comment) Dextrose 50% injection: 25 Gram, IV Push, Q15Min, PRN: Other (See Comment) Sodium Chloride 0.9% bolus: 500 mL, 500 mL/Hr, IV Piggyback, 1-Time acetaminophen-oxyCODONE 325 mg-10 mg oral tablet: 1 Tab, Oral, Q8H, PRN: Pain (Severe 7-10) acetaminophen: 650 mg, Oral, Q6H, PRN: Pain [...] Oral, Daily ondansetron: 4 mg, IV Push, Q6H, PRN: Nausea/Vomiting pantoprazole: 40 mg, Oral, Daily traMADol: 50 mg, Oral, Q6H, PRN: Pain (Moderate 4-6) Documented Medications Documented ALPRAZolam 0.5 mg oral [...] Last Charted Minimum Maximum Temp 97.5 (AUG 12:00) 97.5 (AUG 12:) 98 (AUG 12 05:49) Mon HR 50 (AUG 12:) 50 (AUG 12:) 82 (AUG 11 21:28) Resp Rate 20 (AUG 12:00) 16 (AUG 11:30) 20 (AUG 12:) SBP L 86 (AUG 12:) L 86 (AUG 11 19:30) 103 (AUG 12:00) DBP L 47 (AUG 12:) L 46 (AUG 12 05:49) 70 (AUG 12:00) MAP 55 (AUG 12:) 55 (AUG 12:) 80 (AUG 12 02:00) SpO2 94 (AUG 12:00) 94 (AUG 11:30) 98 (AUG 12 05:49) General: Alert and oriented, No acute distress. [...] tenderness, No swelling, No deformity. Integumentary: Warm, Friend. Neurologic: Alert, Oriented, No focal deficits. Psychiatric: Cooperative, Appropriate mood & affect. Review / Management Results review: Labs (Last four charted values) WBC 5.0 (AUG 12) 4.7 (AUG 12) 6.7 (AUG 12) 6.8 (AUG 11) HB L 8.5 (AUG 12) L 8.8 (AUG 12) L 8.7 (AUG 12) L 9.5 (AUG 11) HCT L 28.4 (AUG 12) L 28.8 (AUG 12) L 28.3 (AUG 12) L 31.3 (AUG 11) Plt 212 (AUG 12) 206 (AUG 12) 201 (AUG 12) 223 (AUG 11) Na L 134 (AUG 12) L 131 (AUG 11) K 3.6 (AUG 12) 4.1 (AUG 11) Cl L 98 (AUG 12) L 96 (AUG 11) CO2 29 (AUG 12) 26 (AUG 11) BUN H 69 (AUG 12) H 70 (JUL 20) Cr H 2.40 (AUG 12) H 2.50 (AUG 11) Glu R H 134 (AUG 12) 87 (AUG 11) Ca 9.6 (AUG 12) 10.0 (JUL 20) Lactic .93 (AUG 12) L .73 (JUL 20) PT H 17.5 (AUG 12) H 17.1 (AUG 12) H 18.9 (AUG 11) INR H 1.7 (AUG 12) H 1.6 (AUG 12) H 1.8 (JUL 20) PTT H 39.6 (JUL 20) AST 16 (AUG 12) 18 (JUL 20) ALT 23 (AUG 12) 25 (JUL 20) ALK P 110 (AUG 12) 128 (JUL 20) T Bili 0.6 (AUG 12) 0.7 (JUL 20) PTN 7.6 (JUL 21) H 8.7 (JUL 20) ALB 3.9 (JUL 21) 4.4 (SEP 20) Troponin <0.015 (AUG 12) <0.015 (JUL 20) <0.015 (AUG 11) . Impression and Plan IMPRESSION -- CN Staph bacteremia History concerning for infected chest catheter with secondary infection of prosthetic MV Data available by phone indicate staph epi from 07/09 blood culture (oxacillin sensitive ) and staph capitus from 08/08 blood culture (also oxacillin sensitive) it is conceivable that the these could be the same organisms -- MVR 2005 -- Portacath placement 2017 -- Autoimmune hemolytic anemia requiring frequent transfusions -- Acute on CKD- stage 2 per patient although based on recent creatinine it may be higher -- Nephrolthiasis and multiple urologic surgeries -- COPd -- Remote tobacco abuse RECOMMENDATIONS -- cefazolin and daptomycin while blood cultures are pending -- Await CHUCHO results -- will need removal of portacath- recommend surgery consult -- Await CHUCHO Electronically signed by Lanny [facility] Conversion Assistive Technology Specialist Cerner at 03/09/2023 9:02 PM CDT documented in this encounter Plan of Treatment Not on file documented as of this encounter Visit Diagnoses Not on filedocumented in this encounter Care Teams Putty And Patch Worker Relationship Specialty Start Date End Date Reji Castro MD [address] [place] [id number] PCP - General Adolescent Medicine 10/02/22 documented as of this encounter
--- OUTSIDE RECORDS SUMMARY | 2025-05-03 08:51 | XMS_ITS | Encounter Summary ---
Author Organization [employer] Address [address] [place] [address] Care Team Providers Care Gas Maker Helper Name Role Phone Reji Castro MD Primary Care Provider [phone] Encounter Details Date Type Department Care Team (Late st Contact Info) Description 08/12/2021 Transcribed Document [facility] [place] [address] [place] [address] ProviderDelvin MD [address] [place] [address] Social History Tobacco Use Types Packs/Day Years Used Date Smoking Tobacco: Never Assessed Comments Unknown Sex and Gender Information Value Date Recorded Sex Assigned at Not on file Legal Sex Female 4:32 PM CDT Gender Identity Not on file Sexual Orientation Not on file documented as of this encounter Miscellaneous Notes * Marisa Conversion Note - Delvin Celestin MD - 08/12/2021 2:07 PM CDT UM Authorization Entered On: 08/12/2021 14:07 EDT Performed On: 08/12/2021 14:07 EDT by JORGE VALLES RN Primary Insurance Authorization Authorization and Policy Numbers : Insurance 1 Health Plan: [employer] Policy Number: [id number] Authorization Number: Insurance 2 Health Plan: [place] Policy Number: [id number] Authorization Number: Insurance Primary Name : [employer] Policy Number: [id number] Authorization Status-Primary : Awaiting callback Reference Number-Primary : Pend ref #[id number] Authorized Service Begin Date-Primary : 08/11/2021 EDT Authorization Comments-Primary : Pend ref no per Availity, reviewer has access to [employer] Historical Authorization Comments-Primary : No Authorization Comments Found JORGE VALLES, RN - 08/12/2021 14:07 EDT documented in this encounter Plan of Treatment Not on file documented as of this encounter Visit Diagnoses Not on filedocumented in this encounter Care Teams Gas Maker Helper Relationship Specialty Start Date End Date Reji Castro MD [address] [place] [id number] PCP - General Adolescent Medicine 10/02/22 documented as of this encounter
--- OUTSIDE RECORDS SUMMARY | 2025-05-03 08:51 | XMS_ITS | Encounter Summary ---
Author Organization [employer] Address [address] [place] [address] Care Team Providers Care Electrical And Instrumentation Manager Name Role Phone Reji Castro MD Primary Care Provider [phone] Encounter Details Date Type Department Care Team (Late st Contact Info) Description 08/16/2021 Transcribed Document [facility] [place] [facility] [place] [address] ProviderDelvin MD [address] [place] [address] Social History Tobacco Use Types Packs/Day Years Used Date Smoking Tobacco: Never Assessed Comments Unknown Sex and Gender Information Value Date Recorded Sex Assigned at Not on file Legal Sex Female 4:32 PM CDT Gender Identity Not on file Sexual Orientation Not on file documented as of this encounter Miscellaneous Notes * Cerner Conversion Note - Delvin Celestin MD - 08/16/2021 1:27 PM CDT Patient: IRINA TAMAYO Age: 56 years Sex: Female : 1965 Associated Diagnoses: None Author: Andrea Moraes, Resident Pharmacist Pharmacy Consult - Warfarin HPI: 56 y/o F presenting to [facility] with history of COPD, atrial fibrillation, [...] PRN: Anxiety. aspirin: 81 mg, Oral, Daily. ceFAZolin + Sodium Chloride 0.9% intravenous solution 50 mL: 1 Gram, 100 mL/Hr, IV Piggyback, Q8HInt. citalopram: 40 mg, Oral, Daily. DAPTOmycin + Sodium Chloride 0.9% intravenous solution 50 mL: 700 mg, 14 mL, 128 mL/Hr, IV Piggyback, [id number]. diphenhydrAMINE: 25 mg, Oral, Q6H, PRN: Itching. [...] 12.5 mg, IV Push, Q6H, PRN: Nausea. Allergies (5) Active Reaction anabolic steroids Congestive heart failure Detrol Congestive heart failure Dye None Documented glipiZIDE Congestive heart failure metFORMIN Congestive heart failure BMI BMI: 32.7 Weight: 86.39kg - Standing scale Height: 162.56cm (5ft ) - Stated Vitals Signs (last 24 hrs) Last Charted Minimum Maximum Temp 98 (AUG 16 10:50) 97.6 (AUG 16 06:00) 98 (AUG 15 18:00) Apical HR 76 (AUG 15 20:32) 76 (AUG 15 20:32) 76 (AUG 15 20:32) Mon HR 81 (AUG 16 10:50) 67 (AUG 15 14:52) 85 (AUG 15 18:00) Resp Rate 18 (AUG 16 10:50) 14 (AUG 15 23:00) 19 (AUG 15 18:00) SBP 112 (AUG 16 10:50) 95 (AUG 15 14:52) 114 (AUG 15 23:00) DBP 60 (AUG 16 10:50) L 45 (AUG 15 14:52) 63 (AUG 15 18:00) MAP 74 (AUG 16 10:50) 63 (AUG 15 23:00) 83 (AUG 15 18:00) SpO2 97 (AUG 16 10:50) L 92 (AUG 15 14:52) 99 (AUG 16 03:39) Labs (Last four charted values) WBC 7.1 (AUG 15) 6.7 (AUG 14) 5.5 (AUG 13) 5.5 (AUG 13) HB L 7.5 (AUG 16) L 7.9 (AUG 15) L 8.0 (AUG 14) L 8.1 (AUG 13) HCT L 25.9 (AUG 16) L 26.7 (AUG 15) L 27.2 (AUG 14) L 26.9 (AUG 13) Plt 197 (AUG 15) 210 (AUG 14) 206 (SEP ) 197 (AUG 13) Na 137 (SEP ) 137 (SEP 24) L 135 (SEP ) 136 (SEP ) K 4.4 (SEP 25) 4.4 (SEP 24) 4.2 (SEP 22) 4.5 (SEP ) Cl 106 (SEP 25) 104 (SEP 24) 102 (SEP ) 103 (SEP ) CO2 25 (AUG 16) 27 (SEP 24) 29 (SEP ) 30 (AUG 13) BUN H 23 (AUG 16) H 28 (JUL 24) H 35 (AUG 13) H 50 (AUG 13) Cr H 1.40 (AUG 16) H 1.80 (JUL 24) H 1.80 (SEP ) H 1.60 (SEP ) Glu R H 112 (AUG 16) H 139 (AUG 15) H 114 (AUG 13) 102 (AUG 13) Ca 9.5 (AUG 16) 9.4 (JUL 24) 9.1 (AUG 13) 9.1 (AUG 13) Lactic .93 (AUG 12) L .73 (AUG 11) PT H 17.2 (AUG 16) H 18.2 (JUL 24) H 17.2 (JUL 23) H 17.0 (AUG 14) INR H 1.7 (AUG 16) H 1.8 (JUL 24) H 1.7 (AUG 14) H 1.6 (AUG 14) PTT H 39.6 (AUG 11) AST 19 (SEP 24) 18 (SEP 22) 17 (SEP 22) 16 (SEP ) ALT 17 (SEP 24) 17 (SEP 22) 19 (SEP ) 23 (SEP ) ALK P 101 (AUG 15) 102 (SEP ) 102 (SEP ) 110 (SEP ) T Bili 0.4 (SEP 24) 0.4 (SEP 22) 0.5 (SEP 22) 0.6 (SEP ) PTN 7.0 (SEP 24) 7.3 (SEP 22) 6.9 (SEP 22) 7.6 (SEP ) ALB 3.5 (SEP 24) 3.8 (SEP 22) 3.9 (SEP 22) 3.9 (SEP 21) Lipase 224 (SEP ) Troponin <0.015 (AUG 12) <0.015 (AUG 11) <0.015 (AUG 11) Current Warfarin Trend Date 9/20 908/13 INR 1.8 1.7 1.6 1.7 1.8 1.7 Dose NO DOSE 6 mg 6 mg HOLD HOLD HOLD [HOLD] Bridge NONE heparin gtt heparin gtt HOLD heparin gtt heparin gtt [heparin gtt] Creatinine Clearance (Current Encounter/Past 24 Hours) Creatinine Level 1.40 mg/dL HI 08/16/2021 02:45 Bun/Creatinine 16.4 08/16/2021 02:45 Estimated Creatinine Clearance 37.82 mL/Min 08/16/2021 02:45 Intake & Output Totals Last 24 Hours (7a-7a) Input Total: 168 mL Output Total: 1350 mL Balance: -1182 mL A/P: 1.) Per Sandeep Holliday MD note: Infected Port-A-Cath removed - plan to place new one Wednesday (08/19); hold warfarin + cont. heparin gtt 2.) INR today (08/16) is 1.7, which is subtherapeutic. Plan to continue with heparin gtt & hold warfarin until Port-A-Cath replaced. - INR has been subtherapeutic since admission 3.) Daily PT/INR ordered. Goal INR 2.5-3.5. H/H still trending down. Continue to monitor closely for any s/sxs of bleeding & trend lab values. 4.) Possible drug interactions noted above. No major interactions at this time. 5.) Pharmacy will continue to follow. Please reach out with any questions. Thank you, Andrea Moraes, GwendolynD PGY1 Sales Planner Pager: [phone], Ext. [phone] documented in this encounter Plan of Treatment Not on file documented as of this encounter Visit Diagnoses Not on filedocumented in this encounter Care Teams Electrical And Instrumentation Manager Relationship Specialty Start Date End Date Reji Castro MD [address] [place] [id number] PCP - General Adolescent Medicine 10/02/22 documented as of this encounter
--- OUTSIDE RECORDS SUMMARY | 2025-05-03 08:52 | XMS_ITS | Encounter Summary ---
Author Organization [employer] Address [address] [place] [address] Care Team Providers Care Lubrication Servicer Name Role Phone Reji Castro MD Primary Care Provider [phone] Encounter Details Date Type Department Care Team (Late st Contact Info) Description 08/21/2021 Transcribed Document [facility] [place] [address] [place] [address] ProviderDelvin MD [address] [place] [address] Social History Tobacco Use Types Packs/Day Years Used Date Smoking Tobacco: Never Assessed Comments Unknown Sex and Gender Information Value Date Recorded Sex Assigned at Not on file Legal Sex Female 4:32 PM CDT Gender Identity Not on file Sexual Orientation Not on file documented as of this encounter Miscellaneous Notes * Cerner Conversion Note - Delvin Celestin MD - 08/21/2021 5:00 PM CDT Chart Check - Review Order Profile Entered On: 08/21/2021 18:33 EDT Performed On: 08/21/2021 17:00 EDT by Cynthia Perez, RN Chart Check Powerplans Initiated/Discontinued as Appropriate : Yes All Active Orders Reviewed : Yes Cynthia Perez RN - 08/21/2021 18:33 EDT Electronically signed by Lanny [facility] Conversion Boat Ride Operator Cerner at 03/09/2023 8:36 PM CDT documented in this encounter Plan of Treatment Not on file documented as of this encounter Visit Diagnoses Not on filedocumented in this encounter Care Teams Lubrication Servicer Relationship Specialty Start Date End Date Reji Castro MD [address] [place] [address] PCP - General Adolescent Medicine 10/02/22 documented as of this encounter
--- OUTSIDE RECORDS SUMMARY | 2025-05-03 08:52 | XMS_ITS | Encounter Summary ---
Author Organization [employer] Address [address] [place] [address] Care Team Providers Care Salary And Wage Administrator Name Role Phone Reji Castro MD Primary Care Provider [phone] Encounter Details Date Type Department Care Team (Late st Contact Info) Description 08/22/2021 Transcribed Document [facility] [place] [address] [place] [address] ProviderDelvin MD [facility] [place] [address] Social History Tobacco Use Types Packs/Day Years Used Date Smoking Tobacco: Never Assessed Comments Unknown Sex and Gender Information Value Date Recorded Sex Assigned at Not on file Legal Sex Female 4:32 PM CDT Gender Identity Not on file Sexual Orientation Not on file documented as of this encounter Miscellaneous Notes * Cerner Conversion Note - Delvin Celestin MD - 08/22/2021 3:56 PM CDT Patient: IRINA TAMAYO Age: 56 years Sex: Female : 1965 Associated Diagnoses: None Author: Andrea Moraes, Resident Pharmacist Pharmacy Consult - Warfarin HPI: 56 y/o F presenting to [facility] with history of COPD, atrial fibrillation, [...] cefTRIAXone: 2 Gram, 100 mL/Hr, IV Piggyback, [id number]. citalopram: 40 mg, Oral, Daily. diphenhydrAMINE: 25 [...] mg, IV Push, Q6H, PRN: Nausea. spironolactone: 50 mg, Oral, BID. warfarin: 6 mg, Oral, Daily. Allergies (5) Active Reaction anabolic steroids Congestive heart failure Detrol Congestive heart failure Dye None Documented glipiZIDE Congestive heart failure metFORMIN Congestive heart failure BMI BMI: 32.7 Weight: 86.39kg - Standing scale Height: 162.56cm (5ft ) - Stated Vitals Signs (last 24 hrs) Last Charted Minimum Maximum Temp 98 (AUG 22 03:15) 97.6 (AUG 21 23:30) 98 (AUG 22 03:15) Apical HR 89 (AUG 21 21:14) 89 (AUG 21 21:14) 89 (AUG 21 21:14) Mon HR 85 (AUG 22 03:15) 69 (AUG 21 23:30) 85 (AUG 22 03:15) Resp Rate 16 (AUG 22 03:15) 16 (AUG 22 03:15) 17 (AUG 21 23:30) SBP 98 (AUG 22 03:15) 98 (AUG 22 03:15) 107 (AUG 21 23:30) DBP L 50 (AUG 22 03:15) L 50 (AUG 22 03:15) 62 (AUG 21 23:30) MAP 63 (AUG 22 03:15) 63 (AUG 22 03:15) 76 (AUG 21 23:30) SpO2 97 (AUG 22 13:14) 97 (AUG 22 03:15) 97 (AUG 22 03:15) Labs (Last four charted values) WBC 7.0 (AUG 22) 7.4 (AUG 21) 8.1 (AUG 20) H 10.8 (AUG 19) HB L 7.5 (AUG 22) L 7.4 (AUG 21) L 7.7 (AUG 20) L 7.2 (AUG 19) HCT L 25.6 (AUG 22) L 25.2 (AUG 21) L 25.9 (AUG 20) L 25.3 (AUG 19) Plt 181 (AUG 22) 188 (AUG 21) 210 (AUG 20) 207 (AUG 19) Na 138 (AUG 22) 138 (AUG 21) 138 (AUG 20) 137 (AUG 19) K 3.7 (AUG 22) 3.8 (AUG 21) 3.9 (AUG 20) 4.3 (AUG 19) Cl 102 (AUG 22) 103 (AUG 21) 103 (AUG 20) 105 (AUG 19) CO2 H 33 (AUG 22) 31 (AUG 21) 29 (AUG 20) 28 (AUG 19) BUN 19 (AUG 22) 19 (AUG 21) 18 (AUG 20) 16 (AUG 19) Cr H 1.40 (AUG 22) H 1.30 (AUG 21) H 1.40 (AUG 20) H 1.60 (AUG 19) Glu R H 137 (AUG 22) H 129 (AUG 21) H 125 (AUG 20) H 191 (AUG 19) Ca 8.9 (AUG 22) 8.6 (AUG 21) 9.1 (AUG 20) 9.2 (AUG 19) Lactic .93 (AUG 12) L .73 (AUG 11) PT H 14.4 (AUG 22) H 13.3 (AUG 21) H 13.5 (AUG 20) H 13.5 (AUG 19) INR H 1.4 (AUG 22) H 1.3 (AUG 21) H 1.3 (AUG 20) H 1.3 (AUG 19) PTT H 39.6 (AUG 11) AST 17 [...] 08/24 INR 1.3 1.3 1.3 1.3 1.4 Dose HOLD 6 mg 6 mg 7.5 mg [7.5 mg] [6 mg] Bridge *heparin gtt* to midnight NONE heparin gtt in AM heparin gtt heparin gtt [heparin gtt] Creatinine Clearance (Current Encounter/Past 24 Hours) Creatinine Level 1.40 mg/dL HI 08/22/2021 12:46 Bun/Creatinine 13.6 08/22/2021 07:28 Estimated Creatinine Clearance 37.82 mL/Min 08/22/2021 07:28 Intake & Output Totals Last 24 Hours (7a-7a) Input Total: 1088.16 mL Output Total: 3350 mL Balance: -2261.84 mL A/P: 1.) D/w Dr. Solorzano at multidisciplinary rounds: tentative plan is keep patient in hospital until INR is therapeutic 2.) INR today (08/22) is 1.4, which is subtherapeutic. Will continue heparin gtt bridge + give another warfarin 7.5 mg PO x1. - INR subtherapeutic since admission - will plan to reinstitute warfarin 6 mg PO daily (home dose) tomorrow (08/23) after 2 days of booster doses - see above 3.) Pt warfarin was held for 5 days (08/14-08/18) - no surprise we are seeing pt's INR slowly keep up given such a prolonged hold 4.) Daily PT/INR ordered. Goal INR 2.5-3.5. H/H still low. Defer transfusion decision to MD. Continue to monitor closely for any s/sx of bleeding. - unclear if outpatient INR target was 2-3 or 2.5-3.5 - if INR goal was 2-3, may need warfarin 7.5 mg PO daily to maintain INR goal 2.5-3.5 5.) Possible drug interactions noted above. No contraindicated or major interactions noted. 6.) Pharmacy will continue to follow. Please reach out with any questions. Will pass off to clinical pharmacy team working the weekend. Thank you, Andrea Moraes, PharmD PGY1 Hair Boiler Operator Pager: [phone], Ext. [phone] documented in this encounter Plan of Treatment Not on file documented as of this encounter Visit Diagnoses Not on filedocumented in this encounter Care Teams Salary And Wage Administrator Relationship Specialty Start Date End Date Reji Castro MD [address] [place] [address] PCP - General Adolescent Medicine 10/02/22 documented as of this encounter
--- OUTSIDE RECORDS SUMMARY | 2025-05-03 08:52 | XMS_ITS | Encounter Summary ---
Author Organization [employer] Address [address] [place] [address] Care Team Providers Care Milling Supervisor Name Role Phone Reji Castro MD Primary Care Provider [phone] Encounter Details Date Type Department Care Team (Late st Contact Info) Description 08/22/2021 Transcribed Document [facility] [place] [address] [place] [address] ProviderDelvin MD [address] [place] [address] Social History Tobacco Use Types Packs/Day Years Used Date Smoking Tobacco: Never Assessed Comments Unknown Sex and Gender Information Value Date Recorded Sex Assigned at Not on file Legal Sex Female 4:32 PM CDT Gender Identity Not on file Sexual Orientation Not on file documented as of this encounter Miscellaneous Notes * Cerner Conversion Note - Delvin Celestin MD - 08/22/2021 3:27 PM CDT On Going Discharge Planning Entered On: 08/22/2021 15:29 EDT Performed On: 08/22/2021 15:27 EDT by MADINA LOVETT, JEREMIAH - Senior Marketing EngineerElectric Container Tester Progress Note Discharge Arrangements : Patient Post-Acute [...] Rounds? : Yes MADINA LOVETT RN - Senior Marketing Engineer - 08/22/2021 15:27 EDT Narrative Progress Note Narrative Progress Note : RRS Low Boost 5 Day 09/29 Patient was admitted for staph infection and port removal. She had a new port placed on 08/19. Patient needs to remain inpatient until her coumadin is at therapeutic level per MD in MDR. Patient will need IV rocephin until 09/08. Per notes today the patient may need to go to a rehab. Patient would prefer to go home with home health. Patient will not be ready to discharge until early next week so CM will check PT notes Wednesday to see if she is snf appropriate. DCP: Historical Progress Note : RRS Low Boost 5 Day 08/29 Patient was admitted for staph infection and port removal. She had a new port placed on 08/19. Patient needs to remain inpatient until her coumadin is at therapeutic level per MD in MDR. Patient will need IV rocephin until 09/08. CM faxed the order to Urszula with [facility]. CM also faxed order for home health to [facility] which the patient states she has used before. Patient will probably not be ready for discharge until early next week per MDR. DCP: home with home health MADINA LOVETT RN - Senior Marketing Engineer - 08/21/21 15:11:24 RRS Low Boost 5 Day 07/30 Patient was admitted for staph infection and port removal. She had a new port placed on 08/19. Patient needs to remain inpatient until her coumadin is at a therapeutic level per at [facility]. Patient will need IV rocephin until 09/08. Patient will need home health and says she has used [facility] in the past. CM will refer her to them after final antibiotic order is placed. DCP: home with home health MADINA LOVETT RN - Senior Marketing Engineer - 08/20/21 13:35:46 RRS Low Boost 5 Day 05/26 Patient [...] will need home health and lvies in [place]. [facility] is a possibility. MADINA LOVETT RN - Senior Marketing Engineer - 08/19/21 15:40:22 RRS Low Boost 5 [...] will need home health and lives in [place]. [facility] home [facility] is a possibility. CM will continue to follow. DCP: MADINA LOVETT RN - Senior Marketing Engineer - 08/18/21 15:47:49 (late entry from 08/15-) [...] and send referrals as appropriate. JULIO STEWART, JEREMIAH-Senior Marketing Engineer ED - 08/18/21 10:38:39 MADINA LOVETT RN - Senior Marketing Engineer - 08/22/2021 15:27 EDT documented in this encounter Plan of Treatment Not on file documented as of this encounter Visit Diagnoses Not on filedocumented in this encounter Care Teams Milling Supervisor Relationship Specialty Start Date End Date Reji Castro MD [address] [place] [address] PCP - General Adolescent Medicine 10/02/22 documented as of this encounter
--- OUTSIDE RECORDS SUMMARY | 2025-05-03 08:52 | XMS_ITS | Encounter Summary ---
Author Organization [employer] Address [address] [place] [address] Care Team Providers Care Patrol Supervisor Name Role Phone Reji Castro MD Primary Care Provider [phone] Encounter Details Date Type Department Care Team (Late st Contact Info) Description 08/11/2021 Transcribed Document [facility] [place] [facility] [place] [address] ProviderDelvin MD [address] [place] [address] Social History Tobacco Use Types Packs/Day Years [...] On: 08/12/2021 9:32 EDT Performed On: 08/12/2021 9:05 EDT by Celina Wilder RN Phone Call for Consults Consult Phone Call/Page Attempt : First call Consult Reason : bacteremia Physician Requesting Consult : REJI GUERRA MD Physician Requested for Consult : LISA RICKETTS MD-INF Provider Service Notified Name : Infectious Disease Physician Covering for Consult : LISA RICKETTS MD-INF Date and Time Call Returned : 08/12/2021 9:05 EDT Celina Wilder RN - 08/12/2021 9:31 EDT Electronically signed by Lanny [facility] [employer] Conversion Php Wordpress Developer Cerner at 03/09/2023 9:00 PM CDT documented in this encounter Plan of Treatment Not on file documented as of this encounter Visit Diagnoses Not on filedocumented in this encounter Care Teams Patrol Supervisor Relationship Specialty Start Date End Date Reji Castro MD [address] [place] [id number] PCP - General Adolescent Medicine 10/02/22 documented as of this encounter
--- OUTSIDE RECORDS SUMMARY | 2025-05-03 08:52 | XMS_ITS | Encounter Summary ---
Author Organization [employer] Address [address] [place] [address] Care Team Providers Care Leather Production Worker Name Role Phone Reji Castro MD Primary Care Provider [phone] Encounter Details Date Type Department Care Team (Late st Contact Info) Description 08/27/2021 Transcribed Document [facility] [place] [address] [place] [address] ProviderDelvin MD [address] [place] [address] Social History Tobacco Use Types Packs/Day Years Used Date Smoking Tobacco: Never Assessed Comments Unknown Sex and Gender Information Value Date Recorded Sex Assigned at Not on file Legal Sex Female 4:32 PM CDT Gender Identity Not on file Sexual Orientation Not on file documented as of this encounter Miscellaneous Notes * Cerner Conversion Note - Delvin Celestin MD - 08/27/2021 10:18 AM CDT Reji Castro MD [address] [facility] [address] [place] [address] Re: IRINA RONI Date of Visit: 08/11/2021 Dear Reji Castro Thank you for allowing me to participate in your patient's care. Please see the accompanying information that I would like to share with you regarding your patient. This Document is confidential and intended solely for the use of the individual or entity to which it is addressed. If you are not the named addressee, please disregard and do not disseminate, distribute or copy this information. If you are the intended recipient any disclosure of this information and its contents is strictly prohibited. Sincerely, FAIZA YOUSSEF [address] [place] [address] [address] [place] [address] The following document(s) were included in the letter: August 27, 2021 10:05:19 EDT - (08/27/2021) Discharge Note documented in this encounter Plan of Treatment Not on file documented as of this encounter Visit Diagnoses Not on filedocumented in this encounter Care Teams Leather Production Worker Relationship Specialty Start Date End Date Reji Castro MD [address] [place] [id number] PCP - General Adolescent Medicine 10/02/22 documented as of this encounter
--- OUTSIDE RECORDS SUMMARY | 2025-05-03 08:52 | XMS_ITS | Encounter Summary ---
Author Organization [employer] Address [address] [place] [address] Care Team Providers Care Chlorine Cell Tender Name Role Phone Reji Castro MD Primary Care Provider [phone] Encounter Details Date Type Department Care Team (Late st Contact Info) Description 08/22/2021 Transcribed Document [facility] Family Medicine [address] [place], [place] [id number] ProviderDelvin MD [address] [place] [address] Social History Tobacco Use Types Packs/Day Years Used Date Smoking Tobacco: Never Assessed Comments Unknown Sex and Gender Information Value Date Recorded Sex Assigned at Not on file Legal Sex Female 4:32 PM CDT Gender Identity Not on file Sexual Orientation Not on file documented as of this encounter Miscellaneous Notes * Cerner Conversion Note - Delvin ProviderMD - 08/22/2021 8:20 AM CDT Nutrition Assessment Entered On: 08/22/2021 8:20 EDT Performed On: 08/22/2021 8:20 EDT by Lamar Sheppard Diet Obstetrics Specialist Nutrition Assessment Nutrition Assessment Reason : Other: Lamar Gay Diet Obstetrics Specialist - 08/22/2021 8:20 EDT Nutrition Recommendations Dietitian Recommendations : 08/22: Screened for LOS. 56yo F admitted for bacteremia + TRISTAN superimposed on CKD. PMHx of COPD, a fib, CKD, DM2, chronic anemia w/prior blood transfusions, CAD, mitral valve replacement. Pt on 60g CHO diet, 71% avg intakes documented. S/p portacath removal on 08/15 d/t infection + new port placed, R chest. Incisions closed/dry w/no signs of infection. No UWL or additional skin breakdown reported. No nutrition dx at this time. behavioral health technician to rescreen in 7-10 days. Lamar Sheppard, Diet Obstetrics Specialist - 08/22/2021 12:04 EDT Electronically signed by Lanny [facility] Conversion Reacher Cerner at 03/09/2023 8:41 PM CDT documented in this encounter Plan of Treatment Not on file documented as of this encounter Visit Diagnoses Not on filedocumented in this encounter Care Teams Chlorine Cell Tender Relationship Specialty Start Date End Date Reji Castro MD [address] [place] [id number] PCP - General Adolescent Medicine 10/02/22 documented as of this encounter
--- OUTSIDE RECORDS SUMMARY | 2025-05-03 08:52 | XMS_ITS | Encounter Summary ---
Author Organization [employer] Address [address] [place] [address] Care Team Providers Care Wood Milling Machine Tender Name Role Phone Reji Castro MD Primary Care Provider [phone] Reason for Referral * Ultrasound (Routine) - Closed Specialty Diagnoses / Procedures Referred By Contac t Referred To Contact Diagnoses Acute renal failure, unspecified acute renal failure type (HCC) Procedures Ultrasound head neck soft tissue Marion Umana MD Phone: tel: fax: Referral ID Status Reason Start Date Expiration Date Visits Re quested Visits Authorized [id number] Closed 09/28/2022 03/27/2023 1 1 Encounter Details Date Type Department Care Team (Late st Contact Info) Description 09/28/2022 Outside Orders [facility] Central Scheduling [address] [place] [address] Marion Umana MD [facility] [address] [place] [id number] Acute renal failure, unspecified acute renal failure type (HCC) (Primary Dx) Social History Tobacco Use Types Packs/Day Years Used Date Smoking Tobacco: Never Assessed Comments Unknown Sex and Gender Information Value Date Recorded Sex Assigned at Not on file Legal Sex Female 4:32 PM CDT Gender Identity Not on file Sexual Orientation Not on file documented as of this encounter Plan of Treatment Not on file documented as of this encounter Visit Diagnoses Diagnosis Acute renal failure, unspecified acute renal failure type (HCC)- Primary documented in this encounter Care Teams Wood Milling Machine Tender Relationship Specialty Start Date End Date Reji Castro MD [address] [place] [id number] PCP - General Adolescent Medicine 10/02/22 documented as of this encounter
--- OUTSIDE RECORDS SUMMARY | 2025-05-03 08:52 | XMS_ITS | Encounter Summary ---
Author Organization [employer] Address [address] [place] [address] Care Team Providers Care Education Professional Name Role Phone Reji Tovar MD Primary Care Provider [phone] Encounter Details Date Type Department Care Team (Late st Contact Info) Description 08/27/[address] [facility] [place] Family Medicine [address] [place] [address] ProviderDelvin MD [address] [place] [id number] Social History Tobacco Use Types Packs/Day Years Used Date Smoking Tobacco: Never Assessed Comments Unknown Sex and Gender Information Value Date Recorded Sex Assigned at Not on file Legal Sex Female 4:32 PM CDT Gender Identity Not on file Sexual Orientation Not on file documented as of this encounter Miscellaneous Notes * Cerner Conversion Note - Delvin Celestin MD - 08/27/2021 10:05 AM CDT Patient: IRINA TAMAYO Age: 56 Years Sex: Female : 1965 Admit Date 08/11/2021 21:21 Discharge Date 08/27/2021 Primary Care Provider Briseyda Discharge Diagnosis mssa bacteremia cultures positive from OSH Patient has mitral valve replacement as well as multiple sites of metal in her body?CHUCHO neg for endocarditis ID following: ?will need IV antibiotics until at least 09/08 Port removed 08/14. Catheter tip cultures neg S/P Port-A-Cath replacement 08/18/2021. po Coumadin now therapeutic Rec pt be seen in coumadin clinic on wednesday can have home iv abx at time of dc Acute on chronic kidney disease III Suspect component of CKD, worsening with hypovolemia/dehydration better; holding arb, bumex decreased, no need for K, spironolactone decreased Autoimmune hemolytic anemia Patient has been followed by hematology/oncology Monitor Hgb, transfuse as needed if hemoglobin less than 8.0 g/dL; as pt reports this as her hematologic goal per her treating subspecialist No active bleed Iron supplementation, folic acid Status post multiple blood transfusions in the past; transfused one unit to bring pt to reported goal hgb >8 S/p IV iron infusion chest pain, atypical ekg reviewed, a fib with RBBB, no acute changes moved to tele to monitor; no abnormality trops neg chronic severe TR 4+, right ventricular systolic dysfunction, A. fib, mechanical valve EF 55% INR subtherapeutic, 1.8?bridge with Heparin; goal INR 2.5-3.5 Aspirin, metoprolol Currently rate controlled Cardiology evaluated, signed off 08/14; rec pt f/u with Dr. 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 PROCEDURE PERFORMED: Right IJ PowerPort placement. DIRECTOR OF OPTIMIZATION: Cherri Ya. ANESTHESIA: Local MAC. FINDINGS: An 8-Sami single lumen PowerPort was placed using a [...] and J-wire followed by passage of the 8-Sami single-lumen catheter. Once again, fluoroscopy was used [...] taken to the Recovery in stable condition. /[id number] Nena Holliday MD JMH/AQ [1] Operative Report DATE OF PROCEDURE: 08/14/2021 SURGEON: Nena Holliday MD PREOPERATIVE DIAGNOSIS: Infected left subclavian [...] back to her room in stable condition. /[id number] MD GERMAINE Pollard/TONYA / DOTTIE / MODL /[id number] Signature Line Electronically Signed on 08/14/2021 11:35 AM NENA HOLLIDAY MD-TATYANA [2] Studies Impression: Technically difficult study due to patient [...] atrial size. Elevated central venous pressure (>15mmHg). [3] Reason for Hospitalization 56-year-old female with a history of COPD, atrial fibrillation, CKD unknown stage, type 2 diabetes, chronic anemia that has needed blood transfusions in the past, CAD, mitral valve replacement presents to [facility] emergency department in [place] after being told by outside provider that [...] and to be evaluated by infectious disease. [4] Hospital Course Pt admitted, seen by ID, treated with abx, cultures revealed mssa.Pt portacath recommended removal. Surgery consulted, portacath removed. Pt tolerated well. The following week the patient had replacement of portacath, tolerated well. Pt had prolonged hospitalization due to need for coming off and then replacing coumadin and achieving therapeutic inr. No unexpected events occurred. Pt did have some adjustments to medications at home, with diminishment of anti-htn and diuretics. She was followed by nephrology as she had mild martínez on ckd, at baseline at discharge. She follows with Dr. Gonzalez chronically. Additionally, pt has not really been utilizing any significant regimen for dm control, she attributes to being 'compliant' with diet while here. Rec she check glucoses regularly at home, hold dm meds for now, re-eval with her pcp at time of f/u their re-institution and at what doses. She was seen by our loader unloader with no new findings, rec to f/u with her usual loader unloader. Vital Signs T: 36.4 ??C TMIN: 36.4 ??C TMAX: 36.7 ??C HR: 71(Monitored) RR: 14 BP: 103/62 SpO2: 96% Oxygen Settings (Last) Oxygen Therapy Mode: Nasal cannula (08/27/21 04:53:00) Oxygen Flow Rate: 2 Liter/Min (08/27/21 04:53:00) Physical Exam General: Alert and oriented, No acute distress, up in chair, on room air, comfortable and generally well [...] intact. Psychiatric: Cooperative, Appropriate mood & affect. Discharge Disposition Home with Home Infusion Discharge Follow Up REJI TOVAR (REFMD Zully-FAM - Within 5 to 7 days LISA RICKETTS - Within 1 week NENA HOLLIDAY MD-TATYANA - Within 1 week JOVANNY (REF) YAYA - Within 2 weeks JERRELL GONZALEZ - Within 2 weeks Discharge Medications (16) Active ALPRAZolam 0.5 mg oral tablet 0.5 mg = 1 Tab, PRN, Oral, TID aspirin 81 mg oral tablet, chewable 81 mg = 1 Tab, Oral, Daily bumetanide 2 mg oral tablet 1 mg = 0.5 Tab, Oral, BID cefTRIAXone 2 g injection 2 Gram, IV Piggyback, [id number] Celexa 40 mg oral tablet 40 mg = 1 Tab, Oral, Daily Coumadin 4 mg oral tablet 8 mg = 2 Tab, Oral, Daily Dexilant 60 mg oral delayed release capsule 60 mg = 1 Cap, Oral, Daily docusate-senna 50 mg-8.6 mg oral tablet 1 Tab, Oral, BID famotidine 20 mg oral tablet 20 mg = 1 Tab, Oral, At Bedtime folic acid 1 mg oral tablet 1 mg = 1 Tab, Oral, Daily levothyroxine 25 mcg (0.025 mg) oral tablet 25 mcg = 1 Tab, Oral, Daily olopatadine 0.2% ophthalmic solution 1 Drop, Eyes Both, Daily Percocet 10/325 oral tablet 1 Tab, PRN, Oral, Q8H Probiotic Formula oral capsule 1 Cap, Oral, Daily spironolactone 25 mg oral tablet 25 mg = 1 Tab, Oral, Daily Toprol-XL 25 mg oral tablet, extended release 25 mg = 1 Tab, Oral, QPM Code Status Start: 08/11/21 20:26:00 EDT, Full Code, Continuous Order Condition on Discharge improved Consulting Physicians LISA RICKETTS MD-INF (bacteremia) NIRALI OQUENDO MD (? martínez on ckd) Elieser VERNON MD-FITO RIOS MD-SIERRA MONTIEL MD-FUNMI NICOLAS MD-MAURA SAINI MD Current Diet Order Diet, Adult - Ordered -- Start: 08/19/21 9:34:00 EDT, 60 gm carbs:[id number] kori, Isolation: Standard Precautions, Instructions: Diabetic Diet Follow Up Labs/Studies Blood Gases (Current Encounter/Past 24 Hours) No Blood Gas Results Found (Past 24 Hours) Electrolytes(BMP) Results (Current Encounter/Past 24 Hours) Sodium Level 137 mmol/L 08/27/2021 05:09 Potassium Level 4.0 mmol/L 08/27/2021 05:09 Chloride Level 97 mmol/L LOW 08/27/2021 05:09 Carbon Dioxide Level 36 mmol/L DE 08/27/2021 05:09 Anion Gap 8 LOW 08/27/2021 05:09 Blood Urea Nitrogen 22 mg/dL 08/27/2021 05:09 Glucose Level 140 mg/dL DE 08/27/2021 05:09 Calcium Level 9.5 mg/dL 08/27/2021 05:09 Creatinine Level 1.40 mg/dL DE 08/27/2021 05:09 Cardiac Markers (Current Encounter/Past 24 Hours) No Cardiac Marker Results Found (Past 24 Hours) CBC Results (Current Encounter/Past 24 Hours) WBC 5.3 K/uL 08/27/2021 05:03 Hct 29.6 % LOW 08/27/2021 05:03 Hgb 8.8 g/dL LOW 08/27/2021 05:03 Platelet Count 176 K/uL 08/27/2021 05:03 CMP Results (Current Encounter/Past 24 Hours) Bun/Creatinine 15.7 08/27/2021 05:09 eGFR NonAfrican 39 mL/min/1.73m2 LOW 08/27/2021 05:09 Creatinine Level 1.40 mg/dL DE 08/27/2021 05:09 eGFR 47 mL/min/1.73m2 LOW 08/27/2021 05:09 Sodium Level 137 mmol/L 08/27/2021 05:09 Potassium Level 4.0 mmol/L 08/27/2021 05:09 Chloride Level 97 mmol/L LOW 08/27/2021 05:09 Carbon Dioxide Level 36 mmol/L DE 08/27/2021 05:09 Anion Gap 8 LOW 08/27/2021 05:09 Blood Urea Nitrogen 22 mg/dL 08/27/2021 05:09 Glucose Level 140 mg/dL DE 08/27/2021 05:09 Calcium Level 9.5 mg/dL 08/27/2021 05:09 Coagulation Results (Current Encounter/Past 24 Hours) PT 26.0 Second(s) DE 08/27/2021 05:04 INR 2.6 DE 08/27/2021 05:04 Creatinine Clearance (Current Encounter/Past 24 Hours) Creatinine Level 1.40 mg/dL DE 08/27/2021 08:46 Bun/Creatinine 15.7 08/27/2021 05:09 Estimated Creatinine Clearance 37.82 mL/Min 08/27/2021 05:09 Pending Labs Ordered PTT Heparin Protocol Specimen Type: Blood, AM Draw collect, 08/23/21 4:00:00 EDT, Daily, Lab Collect BMP Basic Metabolic Panel Specimen Type: Blood, AM Draw collect, 08/16/21 4:00:00 EDT, Daily, Lab Collect PT/INR Prothrombin Time Specimen Type: Blood, AM Draw collect, 08/13/21 4:00:00 EDT, Daily, Lab Collect Time Spent on Discharge > 30 mins [1] Operative Report; NENA HOLLIDAY MD-SUR 08/19/2021 08:30 EDT [2] Operative Report; NENA HOLLIDAY MD-SUR 08/14/2021 09:06 EDT [3] Progress Note; FAIZA YOUSSEF DO-INT 08/26/2021 13:44 EDT [4] Admission H & P; REJI GUERRA MD 08/11/2021 20:36 EDT documented in this encounter Plan of Treatment Not on file documented as of this encounter Visit Diagnoses Not on filedocumented in this encounter Care Teams Education Professional Relationship Specialty Start Date End Date Reji Tovar MD [address] [place] [id number] PCP - General Adolescent Medicine 10/02/22 documented as of this encounter
--- OUTSIDE RECORDS SUMMARY | 2025-05-03 08:52 | XMS_ITS | Encounter Summary ---
Author Organization [employer] Address [address] [place] [address] Care Team Providers Care Grants Manager Name Role Phone Reji Castro MD Primary Care Provider [phone] Encounter Details Date Type Department Care Team (Late st Contact Info) Description 08/21/2021 Transcribed Document [facility] [place] Family Medicine [facility] [address] ProviderDelvin MD [facility] [place] [address] Social History Tobacco Use Types Packs/Day Years Used Date Smoking Tobacco: Never Assessed Comments Unknown Sex and Gender Information Value Date Recorded Sex Assigned at Not on file Legal Sex Female 4:32 PM CDT Gender Identity Not on file Sexual Orientation Not on file documented as of this encounter Miscellaneous Notes * Cerner Conversion Note - Delvin Celestin MD - 08/21/2021 11:18 AM CDT Patient: IRINA TAMAYO Age: 56 years Sex: Female : 1965 Associated Diagnoses: None Author: Andrea Moraes, Resident Pharmacist Pharmacy Consult - Warfarin HPI: 56 y/o F presenting to [facility] with history of COPD, atrial fibrillation, [...] cefTRIAXone: 2 Gram, 100 mL/Hr, IV Piggyback, [id number]. citalopram: 40 mg, Oral, Daily. diphenhydrAMINE: 50 [...] 20 mL, 125 mL/Hr, IV Piggyback, Daily. spironolactone: 50 mg, Oral, BID. warfarin: 6 mg, Oral, Daily. Allergies (5) Active Reaction anabolic steroids Congestive heart failure Detrol Congestive heart failure Dye None Documented glipiZIDE Congestive heart failure metFORMIN Congestive heart failure BMI BMI: 32.7 Weight: 86.39kg - Standing scale Height: 162.56cm (5ft ) - Stated Vitals Signs (last 24 hrs) Last Charted Minimum Maximum Temp 97.6 (AUG 21 06:00) 97.6 (AUG 21 06:00) 98 (AUG 20 15:00) Apical HR 70 (AUG 20 20:27) 70 (AUG 20 20:27) 70 (AUG 20 20:27) Mon HR 61 (AUG 21 06:00) 61 (AUG 21 06:00) 87 (AUG 20 23:30) Resp Rate 15 (AUG 21 06:00) 15 (AUG 21 06:00) 18 (AUG 20 15:00) SBP 101 (AUG 21 06:00) 95 (AUG 20 23:30) 105 (AUG 20 17:05) DBP 68 (AUG 21 06:00) L 50 (AUG 20 15:00) 68 (AUG 21 06:00) MAP 78 (AUG 21 06:00) 63 (AUG 20 15:00) 82 (AUG 20 17:05) SpO2 95 (AUG 21 06:00) L 92 (AUG 20 17:05) 95 (AUG 21 06:00) Labs (Last four charted values) WBC 7.4 (AUG 21) 8.1 (AUG 20) H 10.8 (AUG 19) 7.0 (AUG 18) HB L 7.4 (JUL 30) L 7.7 (SEP 29) L 7.2 (SEP ) L 7.7 (AUG 18) HCT L 25.2 (JUL 30) L 25.9 (AUG 20) L 25.3 (AUG 19) L 26.2 (AUG 18) Plt 188 (JUL 30) 210 (SEP ) 207 (AUG 19) 207 (AUG 18) Na 138 (JUL 30) 138 (AUG 20) 137 (AUG 19) L 134 (AUG 18) K 3.8 (AUG 21) 3.9 (AUG 20) 4.3 (AUG 19) 4.6 (AUG 18) Cl 103 (AUG 21) 103 (AUG 20) 105 (AUG 19) 105 (AUG 18) CO2 31 (AUG 21) 29 (AUG 20) 28 (AUG 19) 28 (AUG 18) BUN 19 (AUG 21) 18 (AUG 20) 16 (AUG 19) 18 (AUG 18) Cr H 1.30 (AUG 21) H 1.40 (AUG 20) H 1.60 (AUG 19) H 1.40 (AUG 18) Glu R H 129 (AUG 21) H 125 (AUG 20) H 191 (AUG 19) H 137 (AUG 18) Ca 8.6 (AUG 21) 9.1 (AUG 20) 9.2 (AUG 19) 8.8 (AUG 18) Lactic .93 (AUG 12) L .73 (AUG 11) PT H 13.3 (AUG 21) H 13.5 (AUG 20) H 13.5 (AUG 19) H 13.6 (AUG 18) INR H 1.3 (AUG 21) H 1.3 (AUG 20) H 1.3 (AUG 19) H 1.3 (AUG 18) PTT H 39.6 (AUG 11) AST 17 (AUG 18) 19 (SEP 24) 18 (AUG 13) 17 (AUG 13) ALT L 12 (AUG 18) 17 (JUL 24) 17 (AUG 13) 19 (AUG 13) ALK P 110 (AUG 18) 101 (SEP 24) 102 (SEP ) 102 (AUG 13) T Bili 0.6 (AUG 18) 0.4 (SEP 24) 0.4 (SEP 22) 0.5 (SEP ) PTN 6.8 (AUG 18) 7.0 (JUL 24) 7.3 (SEP ) 6.9 (AUG 13) [...] gtt Date 08/18 08/19 08/20 08/21 08/22 INR 1.3 1.3 1.3 1.3 Dose HOLD 6 mg 6 mg [7.5 mg] Bridge *heparin gtt* to midnight NONE heparin gtt in AM heparin gtt [heparin gtt] Creatinine Clearance (Current Encounter/Past 24 Hours) Creatinine Level 1.30 mg/dL HI 08/21/2021 02:19 Bun/Creatinine 14.6 08/21/2021 02:19 Estimated Creatinine Clearance 40.73 mL/Min 08/21/2021 02:19 Intake & Output Totals Last 24 Hours (7a-7a) Input Total: 1284.5 mL Output Total: 2900 mL Balance: -1615.5 mL A/P: 1.) D/w Dr. Solorzano at multidisciplinary rounds: tentative plan is keep patient in hospital until INR is therapeutic 2.) INR today (08/21) is 1.3, which is subtherapeutic. Will continue heparin gtt bridge + warfarin 7.5 mg PO x1 (booster dose). - INR subtherapeutic since admission 3.) Daily PT/INR ordered. Goal INR 2.5-3.5. H/H still low. Continue to monitor closely for any s/sxs of bleeding. 4.) Possible drug interactions noted above. No contraindicated or major interactions noted. 5.) Pharmacy will continue to follow. Please reach out with any questions. Thank you, Andrea Moraes, PharmD PGY1 Supervisor Logging Pager: [phone], Ext. [phone] Electronically signed by Lanny [facility] Conversion Experimental Electronics Developer Cerner at 03/09/2023 8:45 PM CDT documented in this encounter Plan of Treatment Not on file documented as of this encounter Visit Diagnoses Not on filedocumented in this encounter Care Teams Grants Manager Relationship Specialty Start Date End Date Reji Castro MD [address] [place] [id number] PCP - General Adolescent Medicine 10/02/22 documented as of this encounter
--- OUTSIDE RECORDS SUMMARY | 2025-05-03 08:52 | XMS_ITS | Encounter Summary ---
Author Organization [employer] Address [address] [place] [address] Care Team Providers Care Modular Set Crew Member Name Role Phone Reji Castro MD Primary Care Provider [phone] Encounter Details Date Type Department Care Team (Late st Contact Info) Description 08/24/2021 Transcribed Document [facility] [place] Family Medicine [address] [place] [address] ProviderDelvin MD [address] [place] [address] Social History Tobacco Use Types Packs/Day Years Used Date Smoking Tobacco: Never Assessed Comments Unknown Sex and Gender Information Value Date Recorded Sex Assigned at Not on file Legal Sex Female 4:32 PM CDT Gender Identity Not on file Sexual Orientation Not on file documented as of this encounter Miscellaneous Notes * Cerner Conversion Note - Delvin ProviderMD - 08/24/2021 2:00 AM CDT Superannuation Clerk Details Entered On: 08/24/2021 0:53 EDT Performed On: 08/24/2021 2:00 EDT by Usha Adler RN Order Details Transport Mode Order Detail : Wheelchair Isolation Precautions Order Detail : Standard Precautions Order Detail : 0 IV Order Detail : 1 Oxygen Order Detail : 0 Nurse Collect Order Detail : 0 Lift/Transfer : Independent Central Line Order Detail : Yes Room Service : Appropriate Arterial Line : No Patient Needs Meds Crushed/Liquid : No Usha Adler, JEREMIAH - 08/24/2021 0:53 EDT documented in this encounter Plan of Treatment Not on file documented as of this encounter Visit Diagnoses Not on filedocumented in this encounter Care Teams Modular Set Crew Member Relationship Specialty Start Date End Date Reji Castro MD [address] [place] [id number] PCP - General Adolescent Medicine 10/02/22 documented as of this encounter
--- OUTSIDE RECORDS SUMMARY | 2025-05-03 08:52 | XMS_ITS | Encounter Summary ---
Author Organization [employer] Address [address] [place] [address] Care Team Providers Care Chain Testing Machine Operator Name Role Phone Reji Castro MD Primary Care Provider [phone] Reason for Referral * Nuclear Medicine (Routine) - Closed Specialty Diagnoses / Procedures Referred By Contac t Referred To Contact Diagnoses Stage 3 chronic kidney disease, unspecified whether stage 3a or 3b CKD (HCC) Procedures NM parathyroid scan planar only Marion Umana MD Phone: tel: fax: Referral ID Status Reason Start Date Expiration Date Visits Re quested Visits Authorized [id number] Closed 10/02/2022 03/31/2023 1 1 Encounter Details Date Type Department Care Team (Late st Contact Info) Description 10/02/2022 Outside Orders [facility] Central Scheduling [address] [place] [address] Marion Umana MD [address] [facility] [address] [place] [address] Stage 3 chronic kidney disease, unspecified whether stage 3a or 3b CKD (HCC) (Primary Dx) Social History Tobacco Use Types Packs/Day Years Used Date Smoking Tobacco: Never Assessed Comments Unknown Sex and Gender Information Value Date Recorded Sex Assigned at Not on file Legal Sex Female 4:32 PM CDT Gender Identity Not on file Sexual Orientation Not on file documented as of this encounter Plan of Treatment Not on file documented as of this encounter Results * NM parathyroid scan planar only (10/05/2022 11:35 AM EST) Anatomical Region Laterality Modality Neck, Thyroid Nuclear Medicine 10/05/2022 1:05 PM EST Impressions 10/05/2022 1:51 PM EST Equivocal for persistent activity projected over the upper pole of the right lobe of the thyroid. Images reviewed, interpreted, and dictated by Keke Malhotra MD Narrative 10/05/2022 1:51 PM EST PARATHYROID SCAN HISTORY: Hypercalcemia. PROCEDURE: The patient received a dose of 27 mCi of technetium 99m sestamibi. Images over the neck were obtained initially and after a two-hour delay. FINDINGS: There is questionable persistent activity in the upper pole of the right lobe of the thyroid. Procedure Note Kofi Malhotra MD - 10/05/2022 PARATHYROID SCAN HISTORY: Hypercalcemia. PROCEDURE: The patient received a dose of 27 mCi of technetium 99m sestamibi. Images over the neck were obtained initially and after a two-hour delay. FINDINGS: There is questionable persistent activity in the upper pole of the right lobe of the thyroid. IMPRESSION: Equivocal for persistent activity projected over the upper pole of the right lobe of the thyroid. Images reviewed, interpreted, and dictated by Keke Malhotra MD Marion Umana MD IMG NM ORDERABLES Final Result documented in this encounter Visit Diagnoses Diagnosis Stage 3 chronic kidney disease, unspecified whether stage 3a or 3b CKD (HCC)- Primary Stage 3 chronic kidney disease, unspecified whether stage 3a or 3b CKD (HCC) documented in this encounter Care Teams Chain Testing Machine Operator Relationship Specialty Start Date End Date Reji Castro MD [address] [place] [id number] PCP - General Adolescent Medicine 10/02/22 documented as of this encounter
--- OUTSIDE RECORDS SUMMARY | 2025-05-03 08:52 | XMS_ITS | Encounter Summary ---
Author Organization [email or web address] Address [address] [place] [address] Care Team Providers Care Audio Visual Engineer Name Role Phone Reji Castro MD Primary Care Provider + [phone] Encounter Details Date Type Department Care Team (Late st Contact Info) Description 08/13/2021 Transcribed Document [facility] [place] [address] ProviderDelvin MD [address] [place] [id number] Social History Tobacco Use Types Packs/Day Years Used Date Smoking Tobacco: Never Assessed Comments Unknown Sex and Gender Information Value Date Recorded Sex Assigned at Not on file Legal Sex Female 4:32 PM CDT Gender Identity Not on file Sexual Orientation Not on file documented as of this encounter Miscellaneous Notes * Cerner Conversion Note - Delvin Celestin MD - 08/13/2021 3:58 PM CDT Patient: IRINA TAMAYO Age: 56 Years Sex: Female : 1965 Chief Complaint Pt presents to the ER reporting she was called for positive blood clutures which showed staph. Pt reports her port is infected. Currently on Omnicef. Pt has a mechanical valve. Has had 180 units of blood due to anemia, ihc is why she has a port. Reason for Consultation TRISTAN on CKD stage III History of Present Illness 6 year old female with NICM with EF [...] for evaluation of TRISTAN on CKD stage III. Patient follows with Dr gonzáles in [place]. She has hx of obstructive uropathy with left hydronephrosis in 2013 requiring ureteral stent. Per the patient her baseline cr has been around 1.6mg/dl. She Mariann any hx of proteinuria.; Cr on this admission was 2.4-2.5mg/dl. She had interval improvement in renal function cr 1.6mg/dl. She feels well otherwise. Mariann any cp or sob. No LE edema. Review of Systems Constitutional: [No fevers, chills, sweats] Eye: [No recent visual problems, eye discharge, eye pain, redness] HEENT: [No ear pain, nasal congestion, sore throat, voice changes] Respiratory: [No shortness of breath, cough, pain on breathing, sputum production] Cardiovascular: [No Chest pain, palpitations, syncope, shortness of breath while laying flat] Gastrointestinal: [No nausea, vomiting, diarrhea, constipation] Genitourinary: [No hematuria, dysuria, incontinence, lesions on genitalia] Galo/Lymph: [Negative for bruising tendency, swollen lymph glands, nosebleeds, history of anticoagulation] Endocrine: [Negative for excessive thirst, excessive hunger, excessive urination, heat or cold intolerance] Musculoskeletal: [No back pain, neck pain, joint pain, muscle pain, decreased range of motion] Integumentary: [No rash, pruritus, abrasions, lesions] Neurologic: [No weakness, numbness, frequent headaches, tremors, blackouts] Psychiatric: [No anxiety, depression, mood changes, hallucinations] Vital Signs T: 36.6 ??C TMIN: 36.5 ??C TMAX: 36.7 ??C HR: 81(Monitored) RR: 18 BP: 99/59 SpO2: 93% Oxygen Settings (Last) Oxygen Therapy Mode: Nasal cannula (08/13/21 08:00:00) Oxygen Flow Rate: 2 Liter/Min (08/13/21 08:00:00) Physical Exam General: Appears well, alert Neck: [...] continue to monitor the patient during this admission. VTE Prophylaxis - Medical Warfarin 6 mg, Oral, Tab, Daily, Routine, Start 08/11/21 20:44:00 EDT, 08/11/21 20:44:00 EDT (REJI GUERRA) Sequential Compression Device Start: 08/11/21 20:26:00 EDT, Bilateral, Length: Knee High, While patient is in bed, Continuous Order (REJI GUERRA) Provider Information Primary Care Physician - DEREK ROBISON PRIM Attending Physician - FAIZA YOUSSEF, Admitting Physician - VINCE BELLO MD Consulting Physician - LISA RICKETTS MD-INF (bacteremia) Consulting Physician - NIRALI OQUENDO MD (? tristan on ckd) Consulting Physician - CHELI BEASLEY MD-CAR Consulting Physician - Elieser VERNON MD-TATYANA Consulting Physician - NENA PEARSON MD-TATYANA (Pt requested Dr. Pearson specifically)- paula cath infection, needing removal Consulting Physician - FITO TANG MD-ANS Referring Physician - VINCE BELLO MD Problem List/Past Medical History Ongoing AIHA (autoimmune hemolytic anemia) Amblyopia Arthritis Atrial [...] calculus Restless legs syndrome Thyroid disease Historical Bowel obstruction Bronchitis Procedure/Surgical History Replacement, mitral valve, with cardiopulmonary bypass. (01/19/2006), bilateral tubal ligation, cardiac catheterization, CardioMEMS in Left Pulmonary Artery, diagnostic laparoscopy with lysis of adhesions, fulgeration of implants, excision of adrenal gland tumor (benign), great toe surger, left, hernia repair, abdominal, jaw surgery, left, left jaw pin, ligament release right thumb, Power Port in Left Chest, sigmoid colon resection, spontaneous vaginal delivery x 2, stent left ureter, sternotomy, Tendon sheath incision (eg, for trigger finger)., Tibial Plateu Left. Medications Inpatient acetaminophen, 650 mg= 2 Tab, Oral, Q6H, [...] mg= 0.5 mL, IV Push, Q6H, PRN Sodium Chloride 0.9% bolus, 500 mL, IV Piggyback, 1-Time Toprol-XL, 25 mg= 1 Tab, Oral, QPM traMADol, 50 mg= 1 Tab, Oral, Q6H, PRN Home ALPRAZolam 0.5 mg oral tablet, 0.5 mg= 1 Tab, Oral, TID, PRN aspirin 81 mg oral tablet, chewable, 81 mg= 1 Tab, Oral, Daily bumetanide 2 mg oral tablet, 2 mg= 1 Tab, Oral, BID cefdinir 300 mg oral capsule, 300 mg= 1 Cap, Oral, Q12H Celexa 40 mg oral tablet, 40 mg= 1 Tab, Oral, Daily Coumadin 5 mg oral tablet, 5 mg= 1 Tab, Oral, Daily Dexilant 60 mg oral delayed release capsule, 60 mg= 1 Cap, Oral, Daily Diovan 80 mg oral tablet, 40 mg= 0.5 Tab, Oral, Daily docusate-senna 50 mg-8.6 mg oral tablet, 1 Tab, Oral, BID famotidine 20 mg oral tablet, 20 mg= 1 Tab, Oral, At Bedtime Farxiga 10 mg oral tablet, 10 mg= 1 Tab, Oral, Daily folic acid 1 mg oral tablet, 1 mg= 1 Tab, Oral, Daily levothyroxine 25 mcg (0.025 mg) oral tablet, 25 mcg= 1 Tab, Oral, Daily Metoprolol Succinate ER 50 mg oral tablet, extended release, 50 mg= 1 Tab, Oral, Daily olopatadine 0.2% ophthalmic solution, 1 Drop, Eyes Both, Daily Percocet 10/325 oral tablet, 1 Tab, Oral, Q8H, PRN potassium chloride 20 mEq oral tablet, extended release, 20 mEq= 1 Tab, Oral, Daily Probiotic Formula oral capsule, 1 Cap, Oral, Daily spironolactone 25 mg oral tablet, 50 mg= 2 Tab, Oral, BID Toujeo SoloStar 300 units/mL subcutaneous solution, 80 Units, SubCutaneous, At Bedtime Allergies Detrol (Congestive heart failure) Dye anabolic steroids (Congestive heart failure) buprenorphine codeine glipiZIDE (Congestive heart failure) metFORMIN (Congestive heart failure) penicillins propafenone theophylline Social History Tobacco Use in Last 12 Months: No. Smoking Status Former smoker. Years of Use: 30. Last Used: quit 2005. Lab Results Test Name Test Result Date/Time Sodium Level 136 mmol/L 08/13/2021 05:19 EDT Potassium Level 4.5 mmol/L 08/13/2021 05:19 EDT Chloride Level 103 mmol/L 08/13/2021 05:19 EDT Carbon Dioxide Level 30 mmol/L 08/13/2021 05:19 EDT Anion Gap 8 (Low) 08/13/2021 05:19 EDT Glucose Level 102 mg/dL 08/13/2021 05:19 EDT Blood Urea Nitrogen 50 mg/dL (High) 08/13/2021 05:19 EDT Creatinine Level 1.60 mg/dL (High) 08/13/2021 05:19 EDT eGFR 40 mL/min/1.73m2 (Low) 08/13/2021 05:19 EDT eGFR NonAfrican 33 mL/min/1.73m2 (Low) 08/13/2021 05:19 EDT Bun/Creatinine 31.2 (High) 08/13/2021 05:19 EDT Calcium Level 9.1 mg/dL 08/13/2021 05:19 EDT Protein Total 6.9 Gram/dL 08/13/2021 05:19 EDT Albumin Level 3.9 Gram/dL 08/13/2021 05:19 EDT Globulin 3.0 Gram/dL 08/13/2021 05:19 EDT A/G Ratio 1.3 08/13/2021 05:19 EDT Bilirubin Total 0.5 mg/dL 08/13/2021 05:19 EDT Alk Phos 102 Units/Liter 08/13/2021 05:19 EDT AST 17 Units/Liter 08/13/2021 05:19 EDT ALT 19 Units/Liter 08/13/2021 05:19 EDT Device Comment 1 Notified Nurse RBV 08/13/2021 06:03 EDT Device Comment 1 Notified Nurse RBV 08/12/2021 20:23 EDT Glucose POC2 102 mg/dL 08/13/2021 06:03 EDT Glucose POC2 148 mg/dL (High) 08/12/2021 20:23 EDT Glucose POC2 136 mg/dL (High) 08/12/2021 18:29 EDT Lipase Level 224 Units/Liter 08/13/2021 05:19 EDT CRP 1.72 mg/dL (High) 08/13/2021 05:19 EDT Lactate Dehydrogenase 203 Units/Liter 08/13/2021 05:19 EDT CK 87 Units/Liter 08/13/2021 05:19 EDT ProBNP 587 pg/mL (High) 08/13/2021 05:19 EDT WBC 5.5 K/uL 08/13/2021 05:19 EDT RBC 3.50 Million/uL (Low) 08/13/2021 05:19 EDT Hgb 8.5 g/dL (Low) 08/13/2021 05:19 EDT Hct 28.7 % (Low) 08/13/2021 05:19 EDT MCV 82.0 fL 08/13/2021 05:19 EDT MCH 24.3 pg (Low) 08/13/2021 05:19 EDT MCHC 29.6 Gram/dL (Low) 08/13/2021 05:19 EDT Platelet Count 197 K/uL 08/13/2021 05:19 EDT MPV 9.9 fL 08/13/2021 05:19 EDT RDW 18.6 % (High) 08/13/2021 05:19 EDT Neut % 71.6 % (High) 08/13/2021 05:19 EDT Neut # 3.91 K/uL 08/13/2021 05:19 EDT Lymph % 11.4 % (Low) 08/13/2021 05:19 EDT Lymph # 0.62 x10(3)/uL (Low) 08/13/2021 05:19 EDT Overton % 9.5 % (High) 08/13/2021 05:19 EDT Overton # 0.52 K/uL 08/13/2021 05:19 EDT Eos % 6.4 % 08/13/2021 05:19 EDT Eos # 0.35 x10(3)/uL 08/13/2021 05:19 EDT Baso % 0.7 % 08/13/2021 05:19 EDT Baso # 0.04 x10(3)/uL 08/13/2021 05:19 EDT Reticulocyte 1.48 % 08/13/2021 05:19 EDT Slide Review No 08/13/2021 05:19 EDT IG# 0.02 x10(3)/uL 08/13/2021 05:19 EDT IG% 0.40 % 08/13/2021 05:19 EDT PT 16.3 Second(s) (High) 08/13/2021 05:19 EDT INR 1.6 (High) 08/13/2021 05:19 EDT PTT Heparin 46.1 Second(s) 08/13/2021 11:40 EDT PTT Heparin 40.7 Second(s) (Low) 08/13/2021 05:19 EDT PTT Heparin 39.1 Second(s) (Low) 08/12/2021 22:33 EDT PTT Heparin >139.0 Second(s) (Critical) 08/12/2021 18:35 EDT Vancomycin Random 15.0 mcg/mL 08/13/2021 05:19 EDT Electronically signed by [facility] Conversion Finish Photographer Cerner at 03/09/2023 9:02 PM CDT documented in this encounter Plan of Treatment Not on file documented as of this encounter Visit Diagnoses Not on filedocumented in this encounter Care Teams Audio Visual Engineer Relationship Specialty Start Date End Date Reji Castro MD [address] [place] [id number] PCP - General Adolescent Medicine 10/02/22 documented as of this encounter
--- OUTSIDE RECORDS SUMMARY | 2025-05-03 08:52 | XMS_ITS | Encounter Summary ---
Author Organization [employer] Address [address] [place] [address] Care Team Providers Care Vocational Rehabilitation Supervisor Name Role Phone Reji Castro MD Primary Care Provider + [phone] Encounter Details Date Type Department Care Team (Late st Contact Info) Description 08/27/2021 Transcribed Document [facility] [place] Family Medicine [address] [place] [address] ProviderDelvin MD [address] [place] [address] Social History Tobacco Use Types Packs/Day Years Used Date Smoking Tobacco: Never Assessed Comments Unknown Sex and Gender Information Value Date Recorded Sex Assigned at Not on file Legal Sex Female 4:32 PM CDT Gender Identity Not on file Sexual Orientation Not on file documented as of this encounter Miscellaneous Notes * Cerner Conversion Note - Delvin Celestin MD - 08/27/2021 10:41 AM CDT Patient Education Materials Follows: Implanted Port Home Guide An implanted port is a device that is placed under the skin. It is usually placed in the chest. The device can be used to give IV medicine, to take blood, or for dialysis. You may have an implanted port if: ??? You need IV medicine that would be irritating to the small veins in your hands or arms. ??? You need IV medicines, such as antibiotics, for a long period of time. ??? You need IV nutrition for a long period of time. ??? You need dialysis. Having a port means that your health care provider will not need to use the veins in your arms for these procedures. You may have fewer limitations when using a port than you would if you used other types of long-term IVs, and you will likely be able to return to normal activities after your incision heals. An implanted port has two main parts: ??? Sena. The reservoir is the part where a needle is inserted to give medicines or draw blood. The reservoir is round. After it is placed, it appears as a small, raised area under your skin. ??? Catheter. The catheter is a thin, flexible tube that connects the reservoir to a vein. Medicine that is inserted into the reservoir goes into the catheter and then into the vein. How is my port accessed? To access your port: ??? A numbing cream may be placed on the skin over the port site. ??? Your health care provider will put on a mask and sterile gloves. ??? The skin over your port will be cleaned carefully with a germ-killing soap and allowed to dry. ??? Your health care provider will gently pinch the port and insert a needle into it. ??? Your health care provider will check for a blood return to make sure the port is in the vein and is not clogged. ??? If your port needs to remain accessed to get medicine continuously (constant infusion), your health care provider will place a clear bandage (dressing) over the needle site. The dressing and needle will need to be changed every week, or as told by your health care provider. What is flushing? Flushing helps keep the port from getting clogged. Follow instructions from your health care provider about how and when to flush the port. Ports are usually flushed with saline solution or a medicine called heparin. The need for flushing will depend on how the port is used: ??? If the port is only used from time to time to give medicines or draw blood, the port may need to be flushed: ? Before and after medicines have been given. ? Before and after blood has been drawn. ? As part of routine maintenance. Flushing may be recommended every 4?6 weeks. ??? If a constant infusion is running, the port may not need to be flushed. ??? Throw away any syringes in a disposal container that is meant for sharp items (sharps container). You can buy a sharps container from a pharmacy, or you can make one by using an empty hard plastic bottle with a cover. How long will my port stay implanted? The port can stay in for as long as your health care provider thinks it is needed. When it is time for the port to come out, a surgery will be done to remove it. The surgery will be similar to the procedure that was done to put the port in. Follow these instructions at home: ??? Flush your port as told by your health care provider. ??? If you need an infusion over several days, follow instructions from your health care provider about how to take care of your port site. Make sure you: ? Wash your hands with soap and water before you change your dressing. If soap and water are not available, use alcohol-based hand tunnel mucker. ? Change your dressing as told by your health care provider. ? Place any used dressings or infusion bags into a plastic bag. Throw that bag in the trash. ? Keep the dressing that covers the needle clean and dry. Do not get it wet. ? Do not use scissors or sharp objects near the tube. ? Keep the tube clamped, unless it is being used. ??? Check your port site every day for signs of infection. Check for: ? Redness, swelling, or pain. ? Fluid or blood. ? Pus or a bad smell. ??? Protect the skin around the port site. ? Avoid wearing bra straps that rub or irritate the site. ? Protect the skin around your port from seat belts. Place a soft pad over your chest if needed. ??? Bathe or shower as told by your health care provider. The site may get wet as long as you are not actively receiving an infusion. ??? Return to your normal activities as told by your health care provider. Ask your health care provider what activities are safe for you. ??? Carry a medical alert card or wear a medical alert bracelet at all times. This will let health care providers know that you have an implanted port in case of an emergency. Get help right away if: ??? You have redness, swelling, or pain at the port site. ??? You have fluid or blood coming from your port site. ??? You have pus or a bad smell coming from the port site. ??? You have a fever. Summary ??? Implanted ports are usually placed in the chest for long-term IV access. ??? Follow instructions from your health care provider about flushing the port and changing bandages (dressings). ??? Take care of the area around your port by avoiding clothing that puts pressure on the area, and by watching for signs of infection. ??? Protect the skin around your port from seat belts. Place a soft pad over your chest if needed. ??? Get help right away if you have a fever or you have redness, swelling, pain, drainage, or a bad smell at the port site. This information is not intended to replace advice given to you by your health care provider. Make sure you discuss any questions you have with your health care provider. Document Revised: 03/01/2020 Document Reviewed: 12/11/2017 [employer] Patient Education ? 2020 [employer]. Cardiovascular Atrial Fibrillation Atrial fibrillation is a type of irregular or rapid heartbeat (arrhythmia). In atrial fibrillation, the top part of the heart (atria) beats in an irregular pattern. This makes the heart unable to pump blood normally and effectively. The goal of treatment is to prevent blood clots from forming, control your heart rate, or restore your heartbeat to a normal rhythm. If this condition is not treated, it can cause serious problems, such as a weakened heart muscle (cardiomyopathy) or a stroke. What are the causes? This condition is often caused by medical conditions that damage the heart's electrical system. These include: ??? High blood pressure (hypertension). This is the most common cause. ??? Certain heart problems or conditions, such as heart failure, coronary artery disease, heart valve problems, or heart surgery. ??? Diabetes. ??? Overactive thyroid (hyperthyroidism). ??? Obesity. ??? Chronic kidney disease. In some cases, the cause of this condition is not known. What increases the risk? This condition is more likely to develop in: ??? Older people. ??? People who smoke. ??? Athletes who do endurance exercise. ??? People who have a family history of atrial fibrillation. ??? Men. ??? People who use drugs. ??? People who drink a lot of alcohol. ??? People who have lung conditions, such as emphysema, pneumonia, or COPD. ??? People who have obstructive sleep apnea. What are the signs or symptoms? Symptoms of this condition include: ??? A feeling that your heart is racing or beating irregularly. ??? Discomfort or pain in your chest. ??? Shortness of breath. ??? Sudden light-headedness or weakness. ??? Tiring easily during exercise or activity. ??? Fatigue. ??? Syncope (fainting). ??? Sweating. In some cases, there are no symptoms. How is this diagnosed? Your health care provider may detect atrial fibrillation when taking your pulse. If detected, this condition may be diagnosed with: ??? An electrocardiogram (ECG) to check electrical signals of the heart. ??? An ambulatory child and adolescent therapist to record your heart's activity for a few days. ??? A transthoracic echocardiogram (TTE) to create pictures of your heart. ??? A transesophageal echocardiogram (CHUCHO) to create even closer pictures of your heart. ??? A stress test to check your blood supply while you exercise. ??? Imaging tests, such as a CT scan or chest X-ray. ??? Blood tests. How is this treated? Treatment depends on underlying conditions and how you feel when you experience atrial fibrillation. This condition may be treated with: ??? Medicines to prevent blood clots or to treat heart rate or heart rhythm problems. ??? Electrical cardioversion to reset the heart's rhythm. ??? A pacemaker to correct abnormal heart rhythm. ??? Ablation to remove the heart tissue that sends abnormal signals. ??? Left atrial appendage closure to seal the area where blood clots can form. In some cases, underlying conditions will be treated. Follow these instructions at home: Medicines ??? Take over-the counter and prescription medicines only as told by your health care provider. ??? Do not take any new medicines without talking to your health care provider. ??? If you are taking blood thinners: ? Talk with your health care provider before you take any medicines that contain aspirin or NSAIDs, such as ibuprofen. These medicines increase your risk for dangerous bleeding. ? Take your medicine exactly as told, at the same time every day. ? Avoid activities that could cause injury or bruising, and follow instructions about how to prevent falls. ? Wear a medical alert bracelet or carry a card that lists what medicines you take. Lifestyle ??? Do not use any products that contain nicotine or tobacco, such as cigarettes, e-cigarettes, and chewing tobacco. If you need help quitting, ask your health care provider. ??? Eat heart-healthy foods. Talk with a dietitian to make an eating plan that is right for you. ??? Exercise regularly as told by your health care provider. ??? Do not drink alcohol. ??? Lose weight if you are overweight. ??? Do not use drugs, including cannabis. General instructions ??? If you have obstructive sleep apnea, manage your condition as told by your health care provider. ??? Do not use diet pills unless your health care provider approves. Diet pills can make heart problems worse. ??? Keep all follow-up visits as told by your health care provider. This is important. Contact a health care provider if you: ??? Notice a change in the rate, rhythm, or strength of your heartbeat. ??? Are taking a blood thinner and you notice more bruising. ??? Tire more easily when you exercise or do heavy work. ??? Have a sudden change in weight. Get help right away if you have: ??? Chest pain, abdominal pain, sweating, or weakness. ??? Trouble breathing. ??? Side effects of blood thinners, such as blood in your vomit, stool, or urine, or bleeding that cannot stop. ??? Any symptoms of a stroke. BE FAST is an easy way to remember the main warning signs of a stroke: ? B - Balance. Signs are dizziness, sudden trouble walking, or loss of balance. ? E - Eyes. Signs are trouble seeing or a sudden change in vision. ? F - Face. Signs are sudden weakness or numbness of the face, or the face or eyelid drooping on one side. ? A - Arms. Signs are weakness or numbness in an arm. This happens suddenly and usually on one side of the body. ? S - Speech. Signs are sudden trouble speaking, slurred speech, or trouble understanding what people say. ? T - Time. Time to call emergency services. Write down what time symptoms started. ??? Other signs of a stroke, such as: ? A sudden, severe headache with no known cause. ? Nausea or vomiting. ? Seizure. These symptoms may represent a serious problem that is an emergency. Do not wait to see if the symptoms will go away. Get medical help right away. Call your local emergency services (911 in the [place] Do not drive yourself to the hospital. Summary ??? Atrial fibrillation is a type of irregular or rapid heartbeat (arrhythmia). ??? Symptoms include a feeling that your heart is beating fast or irregularly. ??? You may be given medicines to prevent blood clots or to treat heart rate or heart rhythm problems. ??? Get help right away if you have signs or symptoms of a stroke. ??? Get help right away if you cannot catch your breath or have chest pain or pressure. This information is not intended to replace advice given to you by your health care provider. Make sure you discuss any questions you have with your health care provider. Document Revised: 05/01/2020 Document Reviewed: 05/01/2020 [employer] Patient Education ? 2020 [employer]. Caregiving Implanted Port Home Guide An implanted port is a device that is placed under the skin. It is usually placed in the chest. The device can be used to give IV medicine, to take blood, or for dialysis. You may have an implanted port if: ??? You need IV medicine that would be irritating to the small veins in your hands or arms. ??? You need IV medicines, such as antibiotics, for a long period of time. ??? You need IV nutrition for a long period of time. ??? You need dialysis. Having a port means that your health care provider will not need to use the veins in your arms for these procedures. You may have fewer limitations when using a port than you would if you used other types of long-term IVs, and you will likely be able to return to normal activities after your incision heals. An implanted port has two main parts: ??? Sena. The reservoir is the part where a needle is inserted to give medicines or draw blood. The reservoir is round. After it is placed, it appears as a small, raised area under your skin. ??? Catheter. The catheter is a thin, flexible tube that connects the reservoir to a vein. Medicine that is inserted into the reservoir goes into the catheter and then into the vein. How is my port accessed? To access your port: ??? A numbing cream may be placed on the skin over the port site. ??? Your health care provider will put on a mask and sterile gloves. ??? The skin over your port will be cleaned carefully with a germ-killing soap and allowed to dry. ??? Your health care provider will gently pinch the port and insert a needle into it. ??? Your health care provider will check for a blood return to make sure the port is in the vein and is not clogged. ??? If your port needs to remain accessed to get medicine continuously (constant infusion), your health care provider will place a clear bandage (dressing) over the needle site. The dressing and needle will need to be changed every week, or as told by your health care provider. What is flushing? Flushing helps keep the port from getting clogged. Follow instructions from your health care provider about how and when to flush the port. Ports are usually flushed with saline solution or a medicine called heparin. The need for flushing will depend on how the port is used: ??? If the port is only used from time to time to give medicines or draw blood, the port may need to be flushed: ? Before and after medicines have been given. ? Before and after blood has been drawn. ? As part of routine maintenance. Flushing may be recommended every 4?6 weeks. ??? If a constant infusion is running, the port may not need to be flushed. ??? Throw away any syringes in a disposal container that is meant for sharp items (sharps container). You can buy a sharps container from a pharmacy, or you can make one by using an empty hard plastic bottle with a cover. How long will my port stay implanted? The port can stay in for as long as your health care provider thinks it is needed. When it is time for the port to come out, a surgery will be done to remove it. The surgery will be similar to the procedure that was done to put the port in. Follow these instructions at home: ??? Flush your port as told by your health care provider. ??? If you need an infusion over several days, follow instructions from your health care provider about how to take care of your port site. Make sure you: ? Wash your hands with soap and water before you change your dressing. If soap and water are not available, use alcohol-based hand tunnel mucker. ? Change your dressing as told by your health care provider. ? Place any used dressings or infusion bags into a plastic bag. Throw that bag in the trash. ? Keep the dressing that covers the needle clean and dry. Do not get it wet. ? Do not use scissors or sharp objects near the tube. ? Keep the tube clamped, unless it is being used. ??? Check your port site every day for signs of infection. Check for: ? Redness, swelling, or pain. ? Fluid or blood. ? Pus or a bad smell. ??? Protect the skin around the port site. ? Avoid wearing bra straps that rub or irritate the site. ? Protect the skin around your port from seat belts. Place a soft pad over your chest if needed. ??? Bathe or shower as told by your health care provider. The site may get wet as long as you are not actively receiving an infusion. ??? Return to your normal activities as told by your health care provider. Ask your health care provider what activities are safe for you. ??? Carry a medical alert card or wear a medical alert bracelet at all times. This will let health care providers know that you have an implanted port in case of an emergency. Get help right away if: ??? You have redness, swelling, or pain at the port site. ??? You have fluid or blood coming from your port site. ??? You have pus or a bad smell coming from the port site. ??? You have a fever. Summary ??? Implanted ports are usually placed in the chest for long-term IV access. ??? Follow instructions from your health care provider about flushing the port and changing bandages (dressings). ??? Take care of the area around your port by avoiding clothing that puts pressure on the area, and by watching for signs of infection. ??? Protect the skin around your port from seat belts. Place a soft pad over your chest if needed. ??? Get help right away if you have a fever or you have redness, swelling, pain, drainage, or a bad smell at the port site. This information is not intended to replace advice given to you by your health care provider. Make sure you discuss any questions you have with your health care provider. Document Revised: 03/01/2020 Document Reviewed: 12/11/2017 [employer] Patient Education ? 2020 [employer] Endocrinology Diabetes Mellitus and Nutrition, Adult When you have diabetes, or diabetes mellitus, it is very important to have healthy eating habits because your blood sugar (glucose) levels are greatly affected by what you eat and drink. Eating healthy foods in the right amounts, at about the same times every day, can help you: ??? Control your blood glucose. ??? Lower your risk of heart disease. ??? Improve your blood pressure. ??? Reach or maintain a healthy weight. What can affect my meal plan? Every person with diabetes is different, and each person has different needs for a meal plan. Your health care provider may recommend that you work with a dietitian to make a meal plan that is best for you. Your meal plan may vary depending on factors such as: ??? The calories you need. ??? The medicines you take. ??? Your weight. ??? Your blood glucose, blood pressure, and cholesterol levels. ??? Your activity level. ??? Other health conditions you have, such as heart or kidney disease. How do carbohydrates affect me? Carbohydrates, also called carbs, affect your blood glucose level more than any other type of food. Eating carbs naturally raises the amount of glucose in your blood. Carb counting is a method for keeping track of how many carbs you eat. Counting carbs is important to keep your blood glucose at a healthy level, especially if you use insulin or take certain oral diabetes medicines. It is important to know how many carbs you can safely have in each meal. This is different for every person. Your dietitian can help you calculate how many carbs you should have at each meal and for each snack. How does alcohol affect me? Alcohol can cause a sudden decrease in blood glucose (hypoglycemia), especially if you use insulin or take certain oral diabetes medicines. Hypoglycemia can be a life-threatening condition. Symptoms of hypoglycemia, such as sleepiness, dizziness, and confusion, are similar to symptoms of having too much alcohol. ??? Do not drink alcohol if: ? Your health care provider tells you not to drink. ? You are , may be , or are planning to become . ??? If you drink alcohol: ? Do not drink on an empty stomach. ? Limit how much you use to: ? 0?1 drink a day for women. ? 0?2 drinks a day for men. ? Be aware of how much alcohol is in your drink. In the [place] one drink equals one 12 oz bottle of beer (355 mL), one 5 oz glass of wine (148 mL), or one 1? oz glass of hard liquor (44 mL). ? Keep yourself hydrated with water, diet soda, or unsweetened iced tea. ? Keep in mind that regular soda, juice, and other mixers may contain a lot of sugar and must be counted as carbs. What are tips for following this plan? Reading food labels ??? Start by checking the serving size on the Nutrition Facts label of packaged foods and drinks. The amount of calories, carbs, fats, and other nutrients listed on the label is based on one serving of the item. Many items contain more than one serving per package. ??? Check the total grams (g) of carbs in one serving. You can calculate the number of servings of carbs in one serving by dividing the total carbs by 15. For example, if a food has 30 g of total carbs per serving, it would be equal to 2 servings of carbs. ??? Check the number of grams (g) of saturated fats and trans fats in one serving. Choose foods that have a low amount or none of these fats. ??? Check the number of milligrams (mg) of salt (sodium) in one serving. Most people should limit total sodium intake to less than 2,300 mg per day. ??? Always check the nutrition information of foods labeled as low-fat or nonfat. These foods may be higher in added sugar or refined carbs and should be avoided. ??? Talk to your dietitian to identify your daily goals for nutrients listed on the label. Shopping ??? Avoid buying canned, pre-made, or processed foods. These foods tend to be high in fat, sodium, and added sugar. ??? Shop around the outside edge of the grocery store. This is where you will most often find fresh fruits and vegetables, bulk grains, fresh meats, and fresh dairy. Cooking ??? Use low-heat cooking methods, such as baking, instead of high-heat cooking methods like deep frying. ??? Cook using healthy oils, such as olive, canola, or sunflower oil. ??? Avoid cooking with butter, cream, or high-fat meats. Meal planning ??? Eat meals and snacks regularly, preferably at the same times every day. Avoid going long periods of time without eating. ??? Eat foods that are high in fiber, such as fresh fruits, vegetables, beans, and whole grains. Talk with your dietitian about how many servings of carbs you can eat at each meal. ??? Eat 4?6 oz (112?168 g) of lean protein each day, such as lean meat, chicken, fish, eggs, or tofu. One ounce (oz) of lean protein is equal to: ? 1 oz (28 g) of meat, chicken, or fish. ? 1 egg. ? ? cup (62 g) of tofu. ??? Eat some foods each day that contain healthy fats, such as avocado, nuts, seeds, and fish. What foods should I eat? Fruits Berries. Apples. Oranges. Peaches. Apricots. Plums. Grapes. [place]. Papaya. Pomegranate. Kiwi. Cherries. Vegetables Lettuce. Spinach. Leafy greens, including kale, chard, yanira greens, and mustard greens. Beets. Cauliflower. Cabbage. Broccoli. Carrots. Green beans. Tomatoes. Peppers. Onions. Cucumbers. [place] sprouts. Grains Whole grains, such as whole-wheat or whole-grain bread, crackers, tortillas, cereal, and pasta. Unsweetened oatmeal. Quinoa. Brown or wild rice. Meats and other proteins Seafood. Poultry without skin. Lean cuts of poultry and beef. Tofu. Nuts. Seeds. Dairy Low-fat or fat-free dairy products such as milk, yogurt, and cheese. The items listed above may not be a complete list of foods and beverages you can eat. Contact a dietitian for more information. What foods should I avoid? Fruits Fruits canned with syrup. Vegetables Canned vegetables. Frozen vegetables with butter or cream sauce. Grains Refined white flour and flour products such as bread, pasta, snack foods, and cereals. Avoid all processed foods. Meats and other proteins Fatty cuts of meat. Poultry with skin. Breaded or fried meats. Processed meat. Avoid saturated fats. Dairy Full-fat yogurt, cheese, or milk. Beverages Sweetened drinks, such as soda or iced tea. The items listed above may not be a complete list of foods and beverages you should avoid. Contact a dietitian for more information. Questions to ask a health care provider ??? Do I need to meet with a clinical document improvement educator? Do I need to meet with a dietitian? What number can I call if I have questions? When are the best times to check my blood glucose? Where to find more information: ??? [place] [employer]: diabetes.org ??? Academy of Nutrition and Dietetics: www.eatright.org ??? National [place] of Diabetes and Digestive and Kidney Diseases: www.niddk.nih.gov ??? Association of Diabetes Care and Education Specialists: www.diabeteseducator.org Summary ??? It is important to have healthy eating habits because your blood sugar (glucose) levels are greatly affected by what you eat and drink. ??? A healthy meal plan will help you control your blood glucose and maintain a healthy lifestyle. ??? Your health care provider may recommend that you work with a dietitian to make a meal plan that is best for you. ??? Keep in mind that carbohydrates (carbs) and alcohol have immediate effects on your blood glucose levels. It is important to count carbs and to use alcohol carefully. This information is not intended to replace advice given to you by your health care provider. Make sure you discuss any questions you have with your health care provider. Document Revised: 10/15/2020 Document Reviewed: 10/15/2020 [employer] Patient Education ? 2020 [employer] Hematology Warfarin Coagulopathy Warfarin coagulopathy refers to bleeding that may occur as a complication of the medicine warfarin. Warfarin is a blood thinner (anticoagulant). Anticoagulants prevent dangerous blood clots. Bleeding is the most common and most serious complication of warfarin. While taking warfarin, you will need to have blood tests (prothrombin tests, or PT tests) regularly to measure your blood clotting time. The PT test results will be reported as the International Normalized Ratio (INR). The INR tells your health care provider whether your dosage of warfarin needs to be changed. The longer it takes your blood to clot, the higher the INR. Your risk of warfarin coagulopathy increases as your INR increases. What are the causes? This condition may be caused by: ??? Taking too much warfarin (overdose). ??? Underlying medical conditions. ??? Changes to your diet. ??? Interactions with medicines, supplements, or alcohol. What are the signs or symptoms? Warfarin coagulopathy may cause bleeding from any tissue or organ. Symptoms may include: ??? Bleeding from the gums. ??? A nosebleed that is not easily stopped. ??? Blood in stool. This may look like bright red, dark, or black, tarry stools. ??? Blood in urine. This may look like pink, red, or brown urine. ??? Unusual bruising or bruising easily. ??? A cut that does not stop bleeding within 10 minutes. ??? Coughing up blood. ??? Vomiting blood. ??? Feeling nauseous for longer than 1 day. ??? Broken blood vessels in the eye (subconjunctival hemorrhage). This may look like a bright red or dark red patch on the white part of the eye. ??? Abdominal or back pain with or without bruising. ??? Sudden, severe headache. ??? Sudden weakness or numbness of the face, arm, or leg, especially on one side of the body. ??? Sudden confusion. ??? Difficulty speaking (aphasia) or understanding speech. ??? Sudden trouble seeing out of one or both eyes. ??? Unexpected difficulty walking. ??? Dizziness. ??? Loss of balance or coordination. ??? Unusual vaginal bleeding. ??? Swelling or pain at an injection site. ??? Skin scarring due to tissue (necrosis) of fatty tissue. This may cause pain in the waist, thighs, or buttocks. This is more common among women. How is this diagnosed? This condition is diagnosed after your health care provider places you on warfarin and then finds out how it affects your blood's ability to clot. Prothrombin time (PT) clotting tests are used to monitor your clotting factor. These tests also help your health care provider to find the warfarin dose that is best for you. How is this treated? This condition is treated with vitamin K. Vitamin K helps the blood to clot. You may receive vitamin K every 12 hours, or as needed. You may also receive donated plasma (transfusions of fresh frozen plasma). Plasma is the liquid part of blood, and contains substances that help the blood clot. Follow these instructions at home: Medicines ??? Take warfarin exactly as told by your health care provider. This ensures that you avoid bleeding or clots that could result in serious injury, pain, or disability. ??? Take your medicine at the same time every day. If you forget to take your dose of warfarin, take it as soon as you remember on that day. If you do not remember to take it on that day, do not take an extra dose the next day. ??? Contact your health care provider if you miss a dose or take an extra dose. Do not change your dosage on your own to make up for missed or extra doses. ??? Talk with your health care provider or your pharmacist before starting or stopping any new medicines. Many prescription and rfdj-fig-cxqeupm medicines can interfere with warfarin. This includes yccx-spl-eimvnwi vitamins, dietary supplements, herbal medicines, and pain medicines. Your warfarin dosage may need to be adjusted. Eating and drinking ??? It is important to maintain a normal, balanced diet while taking warfarin. Avoid major changes in your diet. If you are planning to change your diet, talk with your health care provider before making changes. ??? Your health care provider may recommend that you work with a diet and certified nutritionist (dietitian). ??? Vitamin K makes warfarin less effective. It is found in many foods. Eat a consistent amount of foods that contain vitamin K. For example, you may decide to eat 2 vitamin K-containing foods each day. Your warfarin dose is set according to the amount of vitamin K in your blood. ??? Eat a consistent amount of foods that contain vitamin K. Vitamin K makes warfarin less effective, so eating the same amount each day enables your health care provider to set the correct dose of warfarin. You may decide to eat 2 vitamin K-containing foods each day. Tests ??? Make sure to have PT tests at least once every 4?6 weeks for the entire time you are taking warfarin. ??? Ask your health care provider what your target INR range is. Make sure you always know your target range. If your INR is not in your target range, your health care provider may adjust your dosage. Preventing bleeding and injury ??? Some common wrks-ift-bbthhsl medicines and supplements may increase the risk of bleeding while taking warfarin. They include: ? Acetaminophen. ? Aspirin. ? NSAIDs, such as ibuprofen or naproxen. ? Vitamin E. ??? Avoid situations that cause bleeding. You may bleed more easily while taking warfarin. To limit bleeding, take the following actions: ? Use a softer toothbrush. ? Floss with waxed floss, not unwaxed floss. ? Shave with an electric razor, not with a blade. ? Limit your use of sharp objects. ? Avoid potentially harmful activities, such as contact sports. General instructions ??? Wear or carry identification that says that you are taking warfarin. ??? Make sure that all health care providers, including your dentist, know that you are taking warfarin. ??? If you need surgery, tell your health care provider that you are taking warfarin. You may have to stop taking warfarin before your surgery. ??? If you plan to breastfeed or become while taking warfarin, talk with your health care provider. ??? Avoid alcohol, tobacco, and drugs. ? If your health care provider approves, limit alcohol intake to no more than 1 drink a day for non- women and 2 drinks a day for men. One drink equals 12 oz. of beer, 5 oz. of wine, or 1? oz. of hard liquor. ? If you change the amount of nicotine, tobacco, or alcohol you use, tell your health care provider. ??? Keep all follow-up visits and lab visits as told by your health care provider. This is very important because warfarin is a medicine that needs to be closely monitored. Contact a health care provider if: ??? You miss a dose. ??? You take an extra dose. ??? You plan to have any kind of surgery or procedure. ??? You are unable to take your medicine due to nausea, vomiting, or diarrhea. ??? You have any major changes in your diet, or you plan to make major changes in your diet. ??? You start or stop any zogp-fff-skruwaa medicine, prescription medicine, or dietary supplement. ??? You become , plan to become , or think you may be . ??? You have menstrual periods that are heavier than usual, or unusual vaginal bleeding. ??? You have unusual bruising. ??? You lose your appetite. ??? You have a fever. ??? You have diarrhea that lasts for more than 24 hours. Get help right away if: ??? You develop symptoms of an allergic reaction, such as: ? Swelling of the lips, face, tongue, mouth, or throat. ? Rash. ? Itching. ? Itchy, red, swollen areas of skin (hives). ? Trouble breathing. ? Chest tightness. ??? You have any symptoms of stroke. BEFAST is an easy way to remember the main warning signs of stroke: ? B - Balance. Signs are dizziness, sudden trouble walking, or loss of balance. ? E - Eye. Signs are trouble seeing or a sudden change in vision. ? F - Face. Signs are sudden weakness or numbness of the face, or the face or eyelid drooping on one side. ? A - Arm. Signs are weakness or numbness in an arm. This happens suddenly and usually on one side of the body. ? S - Speech. Signs are trouble speaking, slurred speech, or trouble understanding speech. ? T - Time. Time to call emergency services. Write down the time your symptoms started. ??? You have other signs of stroke, such as: ? A sudden, severe headache with no known cause. ? Nausea or vomiting. ? Seizure. ??? You have signs or symptoms of a blood clot, such as: ? Pain or swelling in your leg or arm. ? Skin that is red or warm to the touch on your arm or leg. ? Shortness of breath or difficulty breathing. ? Chest pain. ? Unexplained fever. ??? You have: ? A fall or have an accident, especially if you hit your head. ? Blood in your urine. Your urine may look reddish, pinkish, or tea-colored. ? Blood in your stool. Your stool may be black or bright red. ? Bleeding that does not stop after applying pressure to the area for 30 minutes. ? Severe pain in your joints or back. ? Purple or blue toes. ? Skin ulcers that do not go away. ??? You vomit blood or cough up blood. The blood may be bright red, or it may look like coffee grounds. These symptoms may represent a serious problem that is an emergency. Do not wait to see if the symptoms will go away. Get medical help right away. Call your local emergency services (911 in the [place] Do not drive yourself to the hospital. Summary ??? Warfarin needs to be closely monitored with blood tests. It is very important to keep all lab visits and follow-up visits with your health care provider. Make sure you know your target INR range and your warfarin dosage. ??? Monitor how much vitamin K you eat every day. Try to eat the same amount every day. ??? Wear or carry identification that says that you are taking warfarin. ??? Take warfarin at the same time every day. Call your health care provider if you miss a dose or if you take an extra dose. Do not change the dosage of warfarin on your own. ??? Know the signs and symptoms of blood clots, bleeding, and stroke. Know when to get emergency medical help. This information is not intended to replace advice given to you by your health care provider. Make sure you discuss any questions you have with your health care provider. Document Revised: 10/21/2018 Document Reviewed: 01/26/2018 [employer] Patient Education ? 2020 [employer] Infectious Disease Bacteremia, Adult Bacteremia is the presence of bacteria in the blood. When bacteria enter the bloodstream, they can cause a life-threatening reaction called sepsis. Sepsis is a medical emergency. What are the causes? This condition is caused by bacteria that get into the blood. Bacteria can enter the blood from an infection, including: ??? A skin infection or injury, such as a burn or a cut. ??? A lung infection (pneumonia). ??? An infection in the stomach or intestines. ??? An infection in the bladder or urinary system (urinary tract infection). ??? A bacterial infection in another part of the body that spreads to the blood. Bacteria can also enter the blood during a dental or medical procedure, from bleeding gums, or through use of an unclean needle. What increases the risk? This condition is more likely to develop in children, older adults, and people who have: ??? A long-term (chronic) disease or condition like diabetes or chronic kidney failure. ??? An artificial joint or heart valve, or heart valve disease. ??? A tube inserted to treat a medical condition, such as a urinary catheter or IV. ??? A weak disease-fighting system (immune system). ??? Injected illegal drugs. ??? Been hospitalized for more than 10 days in a row. What are the signs or symptoms? Symptoms of this condition include: ??? Fever and chills. ??? Fast heartbeat and shortness of breath. ??? Dizziness, weakness, and low blood pressure. ??? Confusion or anxiety. ??? Pain in the abdomen, nausea, vomiting, and diarrhea. Bacteremia that has spread to other parts of the body may cause symptoms in those areas. In some cases, there are no symptoms. How is this diagnosed? This condition may be diagnosed with a physical exam and tests, such as: ??? Blood tests to check for bacteria (cultures) or other signs of infection. ??? Tests of any tubes that you have had inserted. These tests check for a source of infection. ??? Urine tests to check for bacteria in the urine. ??? Imaging tests, such as an X-ray, a CT scan, an MRI, or a heart ultrasound. These check for a source of infection in other parts of your body, such as your lungs, heart valves, or joints. How is this treated? This condition is usually treated in the hospital. If you are treated at home, you may need to return to the hospital for medicines, blood tests, and evaluation. Treatment may include: ??? Antibiotic medicines. These may be given by mouth or directly into your blood through an IV. You may need antibiotics for several weeks. At first, you may be given an antibiotic to kill most types of blood bacteria. If tests show that a certain kind of bacteria is causing the problem, you may be given a different antibiotic. ??? IV fluids. ??? Removing any catheter or device that could be a source of infection. ??? Blood pressure and breathing support, if needed. ??? Surgery to control the source or the spread of infection, such as surgery to remove an implanted device, abscess, or infected tissue. Follow these instructions at home: Medicines ??? Take fcvd-mcl-fbqhcrn and prescription medicines only as told by your health care provider. ??? If you were prescribed an antibiotic medicine, take it as told by your health care provider. Do not stop taking the antibiotic even if you start to feel better. General instructions ??? Rest as needed. Ask your health care provider when you may return to normal activities. ??? Drink enough fluid to keep your urine pale yellow. ??? Do not use any products that contain nicotine or tobacco, such as cigarettes, e-cigarettes, and chewing tobacco. If you need help quitting, ask your health care provider. ??? Keep all follow-up visits as told by your health care provider. This is important. How is this prevented? Wash your hands regularly with soap and water. If soap and water are not available, use hand tunnel mucker. ??? You should wash your hands: ? After using the toilet or changing a diaper. ? Before preparing, cooking, serving, or eating food. ? While caring for a sick person or while visiting someone in a hospital. ? Before and after changing bandages (dressings) over wounds. ??? Clean any scrapes or cuts with soap and water and cover them with a clean bandage. ??? Get vaccinations as recommended by your health care provider. ??? Practice good oral hygiene. [place] your teeth two times a day, and floss regularly. ??? Take good care of your skin. This includes bathing and moisturizing on a regular basis. Contact a health care provider if: ??? Your symptoms get worse, and medicines do not help. ??? You have severe pain. Get help right away if you have: ??? Pain. ??? A fever or chills. ??? Trouble breathing. ??? A fast heart rate. ??? Skin that is blotchy, pale, or clammy. ??? Confusion. ??? Weakness. ??? Lack of energy or unusual sleepiness. ??? New symptoms that develop after treatment has started. These symptoms may represent a serious problem that is an emergency. Do not wait to see if the symptoms will go away. Get medical help right away. Call your local emergency services (911 in the [place] Do not drive yourself to the hospital. Summary ??? Bacteremia is the presence of bacteria in the blood. When bacteria enter the bloodstream, they can cause a life-threatening reaction called sepsis. ??? Bacteremia is usually treated with antibiotic medicines in the hospital. ??? If you were prescribed an antibiotic medicine, take it as told by your health care provider. Do not stop taking the antibiotic even if you start to feel better. ??? Get help right away if you have any new symptoms that develop after treatment has started. This information is not intended to replace advice given to you by your health care provider. Make sure you discuss any questions you have with your health care provider. Document Revised: 03/29/2020 Document Reviewed: 03/29/2020 [employer] Patient Education ? 2020 [employer]. Nephrology Acute Kidney Injury, Adult Acute kidney injury is a sudden worsening of kidney function. The kidneys are organs that have several jobs. They filter the blood to remove waste products and extra fluid. They also maintain a healthy balance of minerals and hormones in the body, which helps control blood pressure and keep bones strong. With this condition, your kidneys do not do their jobs as well as they should. This condition ranges from mild to severe. Over time, it may develop into long-lasting (chronic) kidney disease. Early detection and treatment may prevent acute kidney injury from developing into a chronic condition. What are the causes? Common causes of this condition include: ??? A problem with blood flow to the kidneys. This may be caused by: ? Low blood pressure (hypotension) or shock. ? Blood loss. ? Heart and blood vessel (cardiovascular) disease. ? Severe santana. ? Liver disease. ??? Direct damage to the kidneys. This may be caused by: ? Certain medicines. ? A kidney infection. ? Poisoning. ? Being around or in contact with toxic substances. ? A surgical wound. ? A hard, direct hit to the kidney area. ??? A sudden blockage of urine flow. This may be caused by: ? Cancer. ? Kidney stones. ? An enlarged prostate in males. What increases the risk? You are more likely to develop this condition if you: ??? Are older than age 65. ??? Are female. ??? Are hospitalized, especially if you are in critical condition. ??? Have certain conditions, such as: ? Chronic kidney disease. ? Diabetes. ? Coronary artery disease and heart failure. ? Pulmonary disease. ? Chronic liver disease. What are the signs or symptoms? Symptoms of this condition may not be obvious until the condition becomes severe. Symptoms of this condition can include: ??? Tiredness (lethargy) or difficulty staying awake. ??? Nausea or vomiting. ??? Swelling (edema) of the face, legs, ankles, or feet. ??? Problems with urination, such as: ? Pain in the abdomen, or pain along the side of your stomach (flank). ? Producing little or no urine. ? Passing urine with a weak flow. ??? Muscle twitches and cramps, especially in the legs. ??? Confusion or trouble concentrating. ??? Loss of appetite. ??? Fever. How is this diagnosed? Your health care provider can diagnose this condition based on your symptoms, medical history, and a physical exam. You may also have other tests, such as: ??? Blood tests. ??? Urine tests. ??? Imaging tests. ??? A test in which a sample of tissue is removed from the kidneys to be examined under a microscope (kidney biopsy). How is this treated? Treatment for this condition depends on the cause and how severe the condition is. In mild cases, treatment may not be needed. The kidneys may heal on their own. In more severe cases, treatment will involve: ??? Treating the cause of the kidney injury. This may involve changing any medicines you are taking or adjusting your dosage. ??? Fluids. You may need specialized IV fluids to balance your body's needs. ??? Having a catheter placed to drain urine and prevent blockages. ??? Preventing problems from occurring. This may mean avoiding certain medicines or procedures that can cause further injury to the kidneys. In some cases, treatment may also require: ??? A procedure to remove toxic wastes from the body (dialysis or continuous renal replacement therapy, CRRT). ??? Surgery. This may be done to repair a torn kidney or to remove the blockage from the urinary system. Follow these instructions at home: Medicines ??? Take loog-snf-ttxqaeh and prescription medicines only as told by your health care provider. ??? Do not take any new medicines without your health care provider's approval. Many medicines can worsen your kidney damage. ??? Do not take any vitamin and mineral supplements without your health care provider's approval. Many nutritional supplements can worsen your kidney damage. Lifestyle ??? If your health care provider prescribed changes to your diet, follow them. You may need to decrease the amount of protein you eat. ??? Achieve and maintain a healthy weight. If you need help with this, ask your health care provider. ??? Start or continue an exercise plan. Try to exercise at least 30 minutes a day, 5 days a week. ??? Do not use any products that contain nicotine or tobacco, such as cigarettes, e-cigarettes, and chewing tobacco. If you need help quitting, ask your health care provider. General instructions ??? Keep track of your blood pressure. Report changes in your blood pressure as told by your health care provider. ??? Stay up to date with your vaccines. Ask your health care provider which vaccines you need. ??? Keep all follow-up visits as told by your health care provider. This is important. Where to find more information ??? [place] [employer] Patients: www.aakp.org ??? National Kidney Foundation: www.kidney.org ??? [employer]: www.akfinc.org ??? [employer] [facility]: ? www.lifeoptions.org ? www.kidneyschool.org Contact a health care provider if: ??? Your symptoms get worse. ??? You develop new symptoms. Get help right away if: ??? You develop symptoms of worsening kidney disease, which include: ? Headaches. ? Abnormally dark or light skin. ? Easy bruising. ? Frequent hiccups. ? Chest pain. ? Shortness of breath. ? End of menstruation in women. ? Seizures. ? Confusion or altered mental status. ? Abdominal or back pain. ? Itchiness. ??? You have a fever. ??? Your body is producing less urine. ??? You have pain or bleeding when you urinate. Summary ??? Acute kidney injury is a sudden worsening of kidney function. ??? Acute kidney injury can be caused by problems with blood flow to the kidneys, direct damage to the kidneys, and sudden blockage of urine flow. ??? Symptoms of this condition may not be obvious until it becomes severe. Symptoms may include edema, lethargy, confusion, nausea or vomiting, and problems passing urine. ??? This condition can be diagnosed with blood tests, urine tests, and imaging tests. Sometimes a kidney biopsy is done to diagnose this condition. ??? Treatment for this condition often involves treating the underlying cause. It is treated with fluids, medicines, diet changes, dialysis, or surgery. This information is not intended to replace advice given to you by your health care provider. Make sure you discuss any questions you have with your health care provider. Document Revised: 09/17/2020 Document Reviewed: 09/17/2020 [facility] Patient Education ? 2020 [employer]. Chronic Kidney Disease, Adult Chronic kidney disease (CKD) happens when the kidneys are damaged over a long period of time. The kidneys are two organs that help with: ??? Getting rid of waste and extra fluid from the blood. ??? Making hormones that maintain the amount of fluid in your tissues and blood vessels. ??? Making sure that the body has the right amount of fluids and chemicals. Most of the time, CKD does not go away, but it can usually be controlled. Steps must be taken to slow down the kidney damage or to stop it from getting worse. If this is not done, the kidneys may stop working. Follow these instructions at home: Medicines ??? Take srgm-frv-nbixcom and prescription medicines only as told by your doctor. You may need to change the amount of medicines you take. ??? Do not take any new medicines unless your doctor says it is okay. Many medicines can make your kidney damage worse. ??? Do not take any vitamin and supplements unless your doctor says it is okay. Many vitamins and supplements can make your kidney damage worse. General instructions ??? Follow a diet as told by your doctor. You may need to stay away from: ? Alcohol. ? Salty foods. ? Foods that are high in: ? Potassium. ? Calcium. ? Protein. ??? Do not use any products that contain nicotine or tobacco, such as cigarettes and e-cigarettes. If you need help quitting, ask your doctor. ??? Keep track of your blood pressure at home. Tell your doctor about any changes. ??? If you have diabetes, keep track of your blood sugar as told by your doctor. ??? Try to stay at a healthy weight. If you need help, ask your doctor. ??? Exercise at least 30 minutes a day, 5 days a week. ??? Stay up-to-date with your shots (immunizations) as told by your doctor. ??? Keep all follow-up visits as told by your doctor. This is important. Contact a doctor if: ??? Your symptoms get worse. ??? You have new symptoms. Get help right away if: ??? You have symptoms of end-stage kidney disease. These may include: ? Headaches. ? Numbness in your hands or feet. ? Easy bruising. ? Having hiccups often. ? Chest pain. ? Shortness of breath. ? Stopping of menstrual periods in women. ??? You have a fever. ??? You have very little pee (urine). ??? You have pain or bleeding when you pee. Summary ??? Chronic kidney disease (CKD) happens when the kidneys are damaged over a long period of time. ??? Most of the time, this condition does not go away, but it can usually be controlled. Steps must be taken to slow down the kidney damage or to stop it from getting worse. ??? Treatment may include a combination of medicines and lifestyle changes. This information is not intended to replace advice given to you by your health care provider. Make sure you discuss any questions you have with your health care provider. Document Revised: 10/21/2018 Document Reviewed: 12/13/2017 [facility] Patient Education ? 2020 [employer]. Pharmacology Vitamin K Foods and Warfarin Warfarin is a blood thinner (anticoagulant). Anticoagulant medicines help prevent the formation of blood clots. Warfarin works by blocking the activity of vitamin K, which promotes normal blood clotting. When you take warfarin, problems can occur from suddenly increasing or decreasing the amount of vitamin K that you eat from one day to the next. These problems can occur due to varying levels of warfarin in your blood. Problems may include: ??? Blood clots. ??? Bleeding. What are tips for eating the right amount of vitamin K? To avoid problems when taking warfarin: ??? Eat a balanced diet that includes: ? Fresh fruits and vegetables. ? Whole grains. ? Low-fat dairy products. ? Lean proteins, such as fish, eggs, and lean cuts of meat. ??? Keep your intake of vitamin K consistent from day to day. To do this: ? Avoid eating large amounts of vitamin K one day and low amounts of vitamin K the next day. ? If you take a multivitamin that contains vitamin K, be sure to take it every day. ? Know which foods contain vitamin K. Read food labels. Use the lists below to understand serving sizes and the amount of vitamin K in one serving. ??? Avoid major changes in your diet. If you are going to change your diet, talk with your health care provider before making changes. ??? Work with a certified nutritionist (dietitian) to develop a meal plan that works best for you. What foods are high in vitamin K? Foods that are high in vitamin K contain more than 100 mcg (micrograms) per serving. These include: ??? Broccoli (cooked from fresh) ? ? cup (78 g) has 110 mcg. ??? [place] sprouts (cooked from fresh) ? ? cup (78 g) has 109 mcg. ??? Greens, beet (cooked from fresh) ? ? cup (72 g) has 350 mcg. ??? Greens, yanira (cooked from fresh) ? ? cup (66 g) has 263 mcg. ??? Greens, turnip (cooked from fresh) ? ? cup (72 g) has 265 mcg. ??? Green onions or scallions ? ? cup (50 g) has 105 mcg. ??? Kale (cooked from fresh) ? ? cup (68 g) has 536 mcg. ??? Parsley (raw) ? 10 sprigs (10 g) has 164 mcg. ??? Spinach (cooked from fresh) ? ? cup (90 g) has 444 mcg. ??? Thai chard (cooked from fresh) ? ? cup (88 g) has 287 mcg. What foods have a moderate amount of vitamin K? Foods that have a moderate amount of vitamin K contain 25?100 mcg per serving. These include: ??? Asparagus (cooked from fresh) ? 4 osman (60 g) have 30 mcg. ??? Black-eyed peas (dried) ? ? cup (85 g) has 32 mcg. ??? Cabbage (cooked from fresh) ? ? cup (78 g) has 84 mcg. ??? Cabbage (raw) ? ? cup (35 g) has 26 mcg. ??? Kiwi fruit ? 1 medium (69 g) has 27 mcg. ??? Lettuce (raw) ? 1 cup (36 g) has 45 mcg. ??? Okra (cooked from fresh) ? ? cup (80 g) has 32 mcg. ??? Prunes (dried) ? 5 prunes (47 g) have 25 mcg. ??? Watercress (raw) ? 1 cup (34 g) has 85 mcg. What foods are low in vitamin K? Foods low in vitamin K contain less than 25 mcg per serving. These include: ??? Artichoke ? 1 medium (128 g) has 18 mcg. ??? Avocado ? 1 oz (21 g) has 6 mcg. ??? Blueberries ? ? cup (73 g) has 14 mcg. ??? Carrots (cooked from fresh) ? ? cup (78 g) has 11 mcg. ??? Cauliflower (raw) ? ? cup (54 g) has 8 mcg. ??? [place] with peel (raw) ? ? cup (52 g) has 9 mcg. ??? Grapes ? ? cup (76 g) has 12 mcg. ??? [place] ? 1 medium (207 g) has 9 mcg. ??? Mixed nuts ? 1 cup (142 g) has 17 mcg. ??? Pear ? 1 medium (178 g) has 8 mcg. ??? Peas (cooked from fresh) ? ? cup (80 g) has 20 mcg. ??? Pickled cucumber ? 1 spear (65 g) has 11 mcg. ??? Sauerkraut (canned) ? ? cup (118 g) has 16 mcg. ??? Soybeans (cooked from fresh) ? ? cup (86 g) has 16 mcg. ??? Tomato (raw) ? 1 medium (123 g) has 10 mcg. ??? Tomato sauce (raw) ? ? cup (123 g) has 17 mcg. What foods do not have vitamin K? If a food contains less than 5 mcg per serving, it is considered to have no vitamin K. These foods include: ??? Bread and cereal products. ??? Cheese. ??? Eggs. ??? Fish and shellfish. ??? Meat and poultry. ??? Milk and dairy products. ??? Seeds, such as sunflower or pumpkin seeds. The items listed above may not be a complete list of foods that have high, moderate, and low amounts of vitamin K or do not have vitamin K. Actual amounts of vitamin K may differ depending on processing. Contact a dietitian for more information. Summary ??? Warfarin is an anticoagulant that prevents blood clots by blocking the activity of vitamin K. It is important to monitor the content of vitamin K in your foods and to be consistent with the amount of vitamin K you take in each day. ??? Avoid major changes in your diet. If you are going to change your diet, talk with your health care provider before making changes. This information is not intended to replace advice given to you by your health care provider. Make sure you discuss any questions you have with your health care provider. Document Revised: 08/27/2020 Document Reviewed: 08/27/2020 [facility] Patient Education ? 2020 [employer] Aspirin and Your Heart Aspirin is a medicine that prevents the platelets in your blood from sticking together. Platelets are the cells that your blood uses for clotting. Aspirin can be used to help reduce the risk of blood clots, heart attacks, and other heart-related problems. What are the risks? Daily use of aspirin can cause side effects. Some of these include: ??? Bleeding. Bleeding can be minor or serious. An example of minor bleeding is bleeding from a cut, and the bleeding does not stop. An example of more serious bleeding is stomach bleeding or, rarely, bleeding into the brain. Your risk of bleeding increases if you are also taking NSAIDs, such as ibuprofen. ??? Increased bruising. ??? Upset stomach. ??? An allergic reaction. People who have growths inside the nose (nasal polyps) have an increased risk of developing an aspirin allergy. How to use aspirin to care for your heart ??? Take aspirin only as told by your health care provider. Make sure that you understand how much to take and what form to take. The two forms of aspirin are: ? Apy-avnesxq-ghamvc.This type of aspirin does not have a coating and is absorbed quickly. This type of aspirin also comes in a chewable form. ? Enteric-coated. This type of aspirin has a coating that releases the medicine very slowly. Enteric-coated aspirin might cause less stomach upset than lqh-tpldxua-zfuvvq aspirin. This type of aspirin should not be chewed or crushed. ??? Work with your health care provider to find out whether it is safe and beneficial for you to take aspirin daily. Taking aspirin daily may be helpful if: ? You have had a heart attack or chest pain, or you are at risk for a heart attack. ? You have a condition in which certain heart vessels are blocked (coronary artery disease), and you have had a procedure to treat it. Examples are: ? Open-heart surgery, such as coronary artery bypass surgery (CABG). ? Coronary angioplasty,which is done to widen a blood vessel of your heart. ? Having a small mesh tube, or stent, placed in your coronary artery. ? You have had certain types of stroke or a mini-stroke known as a transient ischemic attack (TIA). ? You have a narrowing of the arteries that supply the limbs (peripheral artery disease, or PAD). ? You have long-term (chronic) heart rhythm problems, such as atrial fibrillation, and your health care provider thinks aspirin may help. ? You have valve disease or have had surgery on a valve. ? You are considered at increased risk of developing coronary artery disease or PAD. Follow these instructions at home Medicines ??? Take odaw-yzs-qkxpcwl and prescription medicines only as told by your health care provider. ??? If you are taking blood thinners: ? Talk with your health care provider before you take any medicines that contain aspirin or NSAIDs, such as ibuprofen. These medicines increase your risk for dangerous bleeding. ? Take your medicine exactly as told, at the same time every day. ? Avoid activities that could cause injury or bruising, and follow instructions about how to prevent falls. ? Wear a medical alert bracelet or carry a card that lists what medicines you take. General instructions ??? Do not drink alcohol if: ? Your health care provider tells you not to drink. ? You are , may be , or are planning to become . ??? If you drink alcohol: ? Limit how much you use to: ? 0?1 drink a day for women. ? 0?2 drinks a day for men. ? Be aware of how much alcohol is in your drink. In the [place] one drink equals one 12 oz bottle of beer (355 mL), one 5 oz glass of wine (148 mL), or one 1? oz glass of hard liquor (44 mL). ??? Keep all follow-up visits as told by your health care provider. This is important. Where to find more information ??? The [place] [employer]: www.heart.org Contact a health care provider if you have: ??? Unusual bleeding or bruising. ??? Stomach pain or nausea. ??? Ringing in your ears. ??? An allergic reaction that causes hives, itchy skin, or swelling of the lips, tongue, or face. Get help right away if: ??? You notice that your bowel movements are bloody, or dark red or black in color. ??? You vomit or cough up blood. ??? You have blood in your urine. ??? You cough, breathe loudly (wheeze), or feel short of breath. ??? You have chest pain, especially if the pain spreads to your arms, back, neck, or jaw. ??? You have a headache with confusion. You have any symptoms of a stroke. BE FAST is an easy way to remember the main warning signs of a stroke: ??? B - Balance. Signs are dizziness, sudden trouble walking, or loss of balance. ??? E - Eyes. Signs are trouble seeing or a sudden change in vision. ??? F - Face. Signs are sudden weakness or numbness of the face, or the face or eyelid drooping on one side. ??? A - Arms. Signs are weakness or numbness in an arm. This happens suddenly and usually on one side of the body. ??? S - Speech. Signs are sudden trouble speaking, slurred speech, or trouble understanding what people say. ??? T - Time. Time to call emergency services. Write down what time symptoms started. You have other signs of a stroke, such as: ??? A sudden, severe headache with no known cause. ??? Nausea or vomiting. ??? Seizure. These symptoms may represent a serious problem that is an emergency. Do not wait to see if the symptoms will go away. Get medical help right away. Call your local emergency services (911 in the [place] Do not drive yourself to the hospital. Summary ??? Aspirin use can help reduce the risk of blood clots, heart attacks, and other heart-related problems. ??? Daily use of aspirin can cause side effects. ??? Take aspirin only as told by your health care provider. Make sure that you understand how much to take and what form to take. ??? Your health care provider will help you determine whether it is safe and beneficial for you to take aspirin daily. documented in this encounter Plan of Treatment Not on file documented as of this encounter Visit Diagnoses Not on filedocumented in this encounter Care Teams Vocational Rehabilitation Supervisor Relationship Specialty Start Date End Date Reji Castro MD [address] [place] [id number] PCP - General Adolescent Medicine 10/02/22 documented as of this encounter
--- OUTSIDE RECORDS SUMMARY | 2025-05-03 08:52 | XMS_ITS | Clinical Summary ---
Author Organization [email or web address] Address [address] [place] [address] Care Team Providers Care Post Splitter Name Role Phone Reji Castro MD Primary Care Provider [phone] Allergies Active Allergy Reactions Criticality Noted Date Comments Buprenorphine 10/05/2022 Codeine 10/05/2022 Iodinated Contrast Media 10/05/2022 Prednisone 10/05/2022 Rosuvastatin 10/05/2022 Theophylline 10/05/2022 Social History Tobacco Use Types Packs/Day Years Used Date Smoking Tobacco: Never Assessed Interpersonal Safety Answer Date Record ed Family or friends hurt you Not on file 12/10 Family or friends insult you Not on file Family or friends threaten you Not on file 0 12/10/2023 Family or friends scream or curse at you Not on file 12/10/2023 Housing Stability Answer Date Recorded Living situation today Not on file Living situation problems Not on file 2023 Food Insecurity Answer Date Recorded Food run out past 12 months Not on file 11/22 Food did not last past 12 months Not on file 12/10/2023 Employment Answer Date Recorded Help finding and keeping a job Not on file 0 12/10/2023 Family and Community Support Answer Jose Luis e Recorded Help with Day to Day Activities Not on file 12/10/2023 Feeling Lonely or Isolated Not on file 12/10 Educational Attainment Answer Date Yash rded Speak language other than Citizen [place] at home Not on file 12/10/2023 Want help with school or training Not on file 12/10/2023 Depression Answer Date Recorded PHQ-2 Risk Not on file 12/10/2023 Disabilities Answer Date Recorded Difficulty concentrating Not on file 024 Difficulty doing errands alone Not on file 0 12/10/2023 Substance Use Answer Date Recorded Used prescription meds for non-medical reasons N ot on file 12/10/2023 Used illegal drugs past 12 months Not on file 12/10/2023 Comments Unknown Sex and Gender Information Value Date Recorded Sex Assigned at Not on file Legal Sex Female 4:32 PM CDT Gender Identity Not on file Sexual Orientation Not on file Plan of Treatment Health Maintenance Due Date Last Done Comments CT Colonography 1963 Colonoscopy 1963 Colorectal Cancer Screening 1963 FOBT/FIT 1963 Fit-DNA (Cologuard) 1963 Sigmoidoscopy 1963 Depression Screening (12+) 1975 Tobacco Cessation Counseling and Screening (12+) 1975 HIV Screening 1978 Hepatitis C Screening 1981 DTAP/TDAP/TD VACCINES (1 - Tdap) 1982 Pap Smear 1984 Breast Cancer Screening 2003 Lipid Panel 2008 Shingles Vaccine (Zoster) (1 of 2) 2013 Pneumococcal 50+ years (3 of 3 - PCV20 or PCV21) 03/03/2024 03/03/2019, 12/30/2018 COVID-19 VACCINE (3 - season) 07/23/202403/2021, 01/27/2021 Influenza Vaccine (Season Ended) 2025 07/24/20 21 Respiratory Syncytial Virus (RSV) Adult or (1 - 1-dose 75+ series) 2038 [place] [id number] Advance Directives For more information, please contact: [phone] Documents on File Type Date Recorded Patient Pulmonologist/Intensivist Expl anation Advance Directives and Gato g Will 10/05/2022 8:36 AM Care Teams Post Splitter Relationship Specialty Start Date End Date Reji Castro MD [address] [place] [id number] PCP - General Adolescent Medicine 10/02/22
--- OUTSIDE RECORDS SUMMARY | 2025-05-03 08:52 | XMS_ITS | Encounter Summary ---
Author Organization [facility] Address [address] [place] [address] Care Team Providers Care Electrical Technician Instructor Name Role Phone Reji Castro MD Primary Care Provider [phone] Encounter Details Date Type Department Care Team (Late st Contact Info) Description 08/27/2021 Transcribed Document [facility] [place] [address] [place] [address] ProviderDelvin MD [address] [place] [address] Social History Tobacco Use Types Packs/Day Years Used Date Smoking Tobacco: Never Assessed Comments Unknown Sex and Gender Information Value Date Recorded Sex Assigned at Not on file Legal Sex Female 4:32 PM CDT Gender Identity Not on file Sexual Orientation Not on file documented as of this encounter Miscellaneous Notes * Cerner Conversion Note - Delvin ProviderMD - 08/27/2021 5:00 AM CDT Chart Check - Review Order Profile Entered On: 08/27/2021 3:29 EDT Performed On: 08/27/2021 5:00 EDT by Pamela Miguel, RN Chart Check Powerplans Initiated/Discontinued as Appropriate : Yes All Active Orders Reviewed : Yes Pamela Miguel RN - 08/27/2021 3:29 EDT documented in this encounter Plan of Treatment Not on file documented as of this encounter Visit Diagnoses Not on filedocumented in this encounter Care Teams Electrical Technician Instructor Relationship Specialty Start Date End Date Reji Castro MD [address] [place] [id number] PCP - General Adolescent Medicine 10/02/22 documented as of this encounter
--- OUTSIDE RECORDS SUMMARY | 2025-05-03 08:52 | XMS_ITS | Encounter Summary ---
Author Organization [employer] Address [address] [place] [address] Care Team Providers Care Planner Intern Name Role Phone Reji Castro MD Primary Care Provider [phone] Encounter Details Date Type Department Care Team (Late st Contact Info) Description 08/16/2021 Transcribed Document [facility] [place] [address] [place] [address] ProviderDelvin MD [facility] [place], [place] [address] Social History Tobacco Use Types Packs/Day Years Used Date Smoking Tobacco: Never Assessed Comments Unknown Sex and Gender Information Value Date Recorded Sex Assigned at Not on file Legal Sex Female 4:32 PM CDT Gender Identity Not on file Sexual Orientation Not on file documented as of this encounter Miscellaneous Notes * Cerner Conversion Note - Delvin ProviderMD - 08/16/2021 2:00 AM CDT Event Marketing Manager Details Entered On: 08/16/2021 2:41 EDT Performed On: 08/16/2021 2:00 EDT by Pau Armstrong RN - International Order Details Transport Mode Order Detail : Ambulatory Isolation Precautions Order Detail : Standard Precautions Order Detail : 0 Lift/Transfer : Independent Central Line Order Detail : No Room Service : Appropriate Arterial Line : No Patient Needs Meds Crushed/Liquid : No Pau Armstrong RN - International - 08/16/2021 2:41 EDT documented in this encounter Plan of Treatment Not on file documented as of this encounter Visit Diagnoses Not on filedocumented in this encounter Care Teams Planner Intern Relationship Specialty Start Date End Date Reji Castro MD [address] [place] [id number] PCP - General Adolescent Medicine 10/02/22 documented as of this encounter
--- OUTSIDE RECORDS SUMMARY | 2025-05-03 08:52 | XMS_ITS | Encounter Summary ---
Author Organization [employer] [facility] Address [address] [place] [address] Care Team Providers Care Metal Trimmer Name Role Phone Reji Castro MD Primary Care Provider [phone] Encounter Details Date Type Department Care Team (Late st Contact Info) Description 08/21/2021 Transcribed Document [facility] [place] [facility] [place] [address] ProviderDelvin MD [facility] [place] [address] Social History Tobacco Use Types Packs/Day Years Used Date Smoking Tobacco: Never Assessed Comments Unknown Sex and Gender Information Value Date Recorded Sex Assigned at Not on file Legal Sex Female 4:32 PM CDT Gender Identity Not on file Sexual Orientation Not on file documented as of this encounter Miscellaneous Notes * Cerner Conversion Note - Delvin ProviderMD - 08/21/2021 2:00 AM CDT Director Of Career Services Details Entered On: 08/21/2021 6:32 EDT Performed On: 08/21/2021 2:00 EDT by Genna Gonsalez RN Order [...] Crushed/Liquid : No Genna Gonsalez RN - 08/21/2021 6:32 EDT documented in this encounter Plan of Treatment Not on file documented as of this encounter Visit Diagnoses Not on filedocumented in this encounter Care Teams Metal Trimmer Relationship Specialty Start Date End Date Reji Castro MD [address] [place] [id number] PCP - General Adolescent Medicine 10/02/22 documented as of this encounter
--- OUTSIDE RECORDS SUMMARY | 2025-05-03 08:52 | XMS_ITS | Encounter Summary ---
Author Organization [employer] Address [address] [place] [address] Care Team Providers Care Drywall Hanger Framer Name Role Phone Reji Castro MD Primary Care Provider [phone] Encounter Details Date Type Department Care Team (Late st Contact Info) Description 08/15/2021 Transcribed Document [facility] [place] Family Medicine [address] [place] [address] ProviderDelvin MD [address] [place] [address] Social History Tobacco Use Types Packs/Day Years Used Date Smoking Tobacco: Never Assessed Comments Unknown Sex and Gender Information Value Date Recorded Sex Assigned at Not on file Legal Sex Female 4:32 PM CDT Gender Identity Not on file Sexual Orientation Not on file documented as of this encounter Miscellaneous Notes * Cerner Conversion Note - Delvin Celestin MD - 08/15/2021 10:11 AM CDT Pain Assessment Entered On: 08/15/2021 18:09 EDT Performed On: 08/15/2021 15:23 EDT by Nataly Watkins RN Intervention Information: acetaminophen-HYDROcodone Performed by Nataly Watkins RN on 08/15/2021 14:23:00 EDT acetaminophen-HYDROcodone,1Tab Oral,Pain (Moderate 4-6) Pain Assessment Pain Assessment : Follow-up assessment Pain Scale Goal : 4 Pain Improved by Intervention : Yes Nataly Watkins RN - 08/15/2021 18:09 EDT documented in this encounter Plan of Treatment Not on file documented as of this encounter Visit Diagnoses Not on filedocumented in this encounter Care Teams Drywall Hanger Framer Relationship Specialty Start Date End Date Reji Castro MD [address] [place] [id number] PCP - General Adolescent Medicine 10/02/22 documented as of this encounter
--- OUTSIDE RECORDS SUMMARY | 2025-05-03 08:52 | XMS_ITS | Encounter Summary ---
Author Organization [employer] Address [address] [place] [address] Care Team Providers Care Graining Machine Operator Name Role Phone Reji Castro MD Primary Care Provider [phone] Encounter Details Date Type Department Care Team (Late st Contact Info) Description 08/16/2021 Transcribed Document [facility] [place] [address] [place] [address] ProviderDelvin MD [address] [place] [address] Social History Tobacco Use Types Packs/Day Years Used Date Smoking Tobacco: Never Assessed Comments Unknown Sex and Gender Information Value Date Recorded Sex Assigned at Not on file Legal Sex Female 4:32 PM CDT Gender Identity Not on file Sexual Orientation Not on file documented as of this encounter Miscellaneous Notes * Cerner Conversion Note - Delvin ProviderMD - 08/16/2021 5:00 AM CDT Height and Weight, Routine Entered On: 08/16/2021 9:19 EDT Performed On: 08/16/2021 5:00 EDT by JULIO LUND RN-PATIENT CARE BEDSIDE NON-EXEMPT Height and Weight, Routine Routine Weight Source : Bed scale Routine Weight Entry Format : Davison Routine Weight, Pounds : 190 lb Routine Weight Calculation : 86.36 kg Height Source : Stated Height Entry Format : Davison Height, Feet : 5 ft Height, Inches : 4 Inch Clinical Height : 162.56 cm Body Surface Area (BSA), Routine : 1.92 m2 Body Mass Index (BMI), Routine : 32.68 kg/m2 JULIO LUND RN-PATIENT CARE BEDSIDE NON-EXEMPT - 08/16/2021 9:18 EDT documented in this encounter Plan of Treatment Not on file documented as of this encounter Visit Diagnoses Not on filedocumented in this encounter Care Teams Graining Machine Operator Relationship Specialty Start Date End Date Reji Castro MD [address] [place] [id number] PCP - General Adolescent Medicine 10/02/22 documented as of this encounter
--- OUTSIDE RECORDS SUMMARY | 2025-05-03 08:52 | XMS_ITS | Encounter Summary ---
Author Organization [employer] Address [address] [place] [address] Care Team Providers Care Piece Goods Clerk Name Role Phone Reji Castro MD Primary Care Provider [phone] Encounter Details Date Type Department Care Team (Late st Contact Info) Description 08/27/2021 Transcribed Document [facility] [place] [address] [place], [place] [id number] ProviderDelvin MD [address] [place] [address] Social History Tobacco Use Types Packs/Day Years Used Date Smoking Tobacco: Never Assessed Comments Unknown Sex and Gender Information Value Date Recorded Sex Assigned at Not on file Legal Sex Female 4:32 PM CDT Gender Identity Not on file Sexual Orientation Not on file documented as of this encounter Miscellaneous Notes * Cerner Conversion Note - Delvin Celestin MD - 08/27/2021 9:16 AM CDT Patient: IRINA TAMAYO Age: 56 [...] cefTRIAXone: 2 Gram, 100 mL/Hr, IV Piggyback, [id number] diphenhydrAMINE: 25 mg, Oral, Q6H, PRN: Itching [...] tablet: 1 Tab, Oral, BID, 0 Refill(s) cefTRIAXone 2 g injection: 2 Gram, IV Piggyback, [id number], 0 Refill(s) cefdinir 300 mg oral capsule: [...] Oral, BID cefTRIAXone 2 Gram, IV Piggyback, [id number] citalopram 20 mg tab 40 mg 2 [...] tab 25 mg 1 Tab, Oral, Daily Warfarin Dosing by Pharmacy 1 Each, Oral, [...] Bioprosthetic mitral valve replacement / SNOMED CT 393810085 / Confirmed Chronic kidney disease / SNOMED CT 0143287655 / Confirmed COPD - Chronic obstructive pulmonary disease / SNOMED CT 432116035 / Confirmed History of obstructive sleep apnea / IMO [id number] / Confirmed HLD - Hyperlipidemia / SNOMED CT 557947586 / Confirmed HTN - Hypertension / SNOMED CT 2361813104 / Confirmed Canceled: Atrial fibrillation / SNOMED CT 53401991, Active Problems (25) AIHA (autoimmune hemolytic anemia) [...] Last Charted Minimum Maximum Temp 97.6 (AUG 27 04:53) 97.6 (AUG 27 04:53) 98 (AUG 26 20:34) Apical HR 74 (AUG 26 20:36) 74 (AUG 26 20:36) 74 (AUG 26 20:36) Mon HR 71 (AUG 27 04:53) 71 (AUG 27 04:53) 85 (AUG 26 11:00) Resp Rate 14 (AUG 27 04:53) 14 (AUG 26 20:34) 16 (AUG 26 23:00) SBP 103 (AUG 27 04:53) 98 (AUG 27 03:15) 115 (AUG 26 11:00) DBP 62 (AUG 27 04:53) L 49 (AUG 26 23:38) 74 (AUG 26 20:34) MAP 76 (AUG 27 04:53) 71 (AUG 26 23:38) 85 (AUG 26 20:34) SpO2 96 (AUG 27 04:53) L 91 (AUG 26 20:34) 96 (AUG 27 04:53) General: No acute distress. Eye: Extraocular movements [...] review: Labs (Last four charted values) WBC 5.3 (AUG 27) 4.5 (AUG 05) 5.4 (AUG 25) 5.6 (AUG 03) HB L 8.8 (AUG 06) L 8.4 (AUG 05) L 7.7 (AUG 04) L 7.8 (AUG 03) HCT L 29.6 (AUG 06) L 29.0 (OCT 05) L 26.5 (AUG 04) L 26.6 (AUG 03) Plt 176 (AUG 27) L 152 (AUG 05) 180 (AUG 04) 194 (AUG 03) Na 137 (AUG 06) 138 (OCT 05) 140 (AUG 04) 137 (AUG 03) K 4.0 (OCT 06) 4.0 (OCT 05) 4.1 (OCT 04) 3.9 (OCT 03) Cl L 97 (AUG 06) L 99 (OCT 05) L 99 (AUG 04) L 99 (AUG 03) CO2 H 36 (AUG 06) H 35 (AUG 05) H 37 (AUG 04) H 35 (AUG 03) BUN 22 (AUG 06) H 23 (AUG 05) 22 (AUG 04) H 23 (AUG 03) Cr H 1.40 (AUG 06) H 1.30 (AUG 05) H 1.40 (AUG 04) H 1.40 (AUG 03) Glu R H 140 (AUG 06) 103 (AUG 05) 91 (AUG 04) H 120 (AUG 03) Ca 9.5 (AUG 06) 9.4 (AUG 05) 9.7 (AUG 04) 9.4 (AUG 03) Lactic .93 (AUG 12) L .73 (AUG 11) PT H 26.0 (AUG 06) H 22.4 (OCT 05) H 19.3 (OCT 04) H 18.8 (OCT 03) INR H 2.6 (AUG 06) H 2.2 (OCT 05) H 1.9 (AUG 04) H 1.8 (AUG 03) PTT H 39.6 (AUG 11) AST 17 [...] (SEP 24) 3.8 (SEP 22) 3.9 (SEP ) Lipase 224 (AUG 13) Troponin <0.015 (AUG 25) <0.015 (AUG 25) <0.015 (AUG 12) <0.015 (AUG 11) . AUG 27 04:22 137 L 97 22 / H 140 4.0 H 36 H 1.40 \ AUG 27 04:22 \ L 8.8 / 5.3 176 / L 29.6 \ Impression and Plan Dx and Plan [...] Avoid nephrotoxic agents. Monitor GFR adjust medications. At discharge - Check BP before taking BP meds. IF SBP less than 100 mmHg - hold BP meds. Keep log of blood pressure along with HR. If gaining more than 5 pounds and/or SOB take additional dose of bumex Fluid restriction 1.5 lit/day Follow up with Dr GONZALEZ in 2 weeks. documented in this encounter Plan of Treatment Not on file documented as of this encounter Visit Diagnoses Not on filedocumented in this encounter Care Teams Piece Goods Clerk Relationship Specialty Start Date End Date Reji Castro MD [address] [place] [id number] PCP - General Adolescent Medicine 10/02/22 documented as of this encounter
--- OUTSIDE RECORDS SUMMARY | 2025-05-03 08:52 | XMS_ITS | Encounter Summary ---
Author Organization [employer] Address [address] [place] [address] Care Team Providers Care Underground Roof Bolter Name Role Phone Reji Castro MD Primary Care Provider [phone] Encounter Details Date Type Department Care Team (Late st Contact Info) Description 08/21/2021 Transcribed Document [facility] [place] [facility] [place] [address] ProviderDelvin MD [address] [place] [address] Social History Tobacco Use Types Packs/Day Years Used Date Smoking Tobacco: Never Assessed Comments Unknown Sex and Gender Information Value Date Recorded Sex Assigned at Not on file Legal Sex Female 4:32 PM CDT Gender Identity Not on file Sexual Orientation Not on file documented as of this encounter Miscellaneous Notes * Cerner Conversion Note - Delvin Celestin MD - 08/21/2021 3:08 PM CDT On Going Discharge Planning Entered On: 08/21/2021 15:11 EDT Performed On: 08/21/2021 15:08 EDT by MADINA LOVETT, JEREMIAH - Sales RepresentativesMonitoring Analyst Progress Note Discharge Arrangements : Patient Post-Acute [...] Rounds? : Yes MADINA LOVETT RN - Sales Representatives - 08/21/2021 15:08 EDT Narrative Progress Note Narrative Progress Note : RRS Low Boost 5 Day 08/29 Patient was admitted for staph infection and port removal. She had a new port placed on 08/19. Patient needs to remain inpatient until her coumadin is at therapeutic level per MD in [facility]. Patient will need IV rocephin until 09/08. CM faxed the order to Urszula with [facility]. CM also faxed order for home health to [email or web address] which the patient states she has used before. Patient will probably not be ready for discharge until early next week per MDR. DCP: home with home health Historical Progress Note : RRS Low Boost 5 Day 07/30 Patient was admitted for staph infection and port removal. She had a new port placed on 08/19. Patient needs to remain inpatient until her coumadin is at a therapeutic level per at [facility]. Patient will need IV rocephin until 09/08. Patient will need home health and says she has used [facility] home health in the past. CM will refer her to them after final antibiotic order is placed. DCP: home with home health MADINA LOVETT RN - Sales Representatives - 08/20/21 13:35:46 RRS Low Boost 5 Day 05/26 Patient was admitted for staph infection and port removal. She had a new port done on . 08/19. Patient needs to remain inpatient after surgery until her coumadin is at a therapeutic level per at [facility]. Waiting on culture results for final abx plan. May need IV abx at home via port. Patient will need home health and lvies in [place]. [facility] home [facility] is a possibility. MADINA LOVETT RN - Sales Representatives - 08/19/21 15:40:22 RRS Low Boost 5 [...] will need home health and lives in [place]. [facility] home health is a possibility. CM will continue to follow. DCP: MADINA LOVETT, RN - Sales Representatives - 08/18/21 15:47:49 (late entry from 08/15-) [...] and send referrals as appropriate. JULIO STEWART, RN-Sales Representatives ED - 08/18/21 10:38:39 MADINA LOVETT, JEREMIAH - Sales Representatives - 08/21/2021 15:08 EDT documented in this encounter Plan of Treatment Not on file documented as of this encounter Visit Diagnoses Not on filedocumented in this encounter Care Teams Underground Roof Bolter Relationship Specialty Start Date End Date Reji Castro MD [address] [place] [id number] PCP - General Adolescent Medicine 10/02/22 documented as of this encounter
--- OUTSIDE RECORDS SUMMARY | 2025-05-03 08:52 | XMS_ITS | Encounter Summary ---
Author Organization [email or web address] Address [address] [place] [address] Care Team Providers Care Energy Attorney Name Role Phone Reji Castro MD Primary Care Provider [phone] Encounter Details Date Type Department Care Team (Late st Contact Info) Description 08/27/2021 Transcribed Document [facility] [place] Family Medicine [address] [place] [address] ProviderDelvin MD [address] [place] [address] Social History Tobacco Use Types Packs/Day Years Used Date Smoking Tobacco: Never Assessed Comments Unknown Sex and Gender Information Value Date Recorded Sex Assigned at Not on file Legal Sex Female 4:32 PM CDT Gender Identity Not on file Sexual Orientation Not on file documented as of this encounter Miscellaneous Notes * Cerner Conversion Note - Delvin Celestin MD - 08/27/2021 12:50 PM CDT Nursing Discharge Summary Entered On: 08/27/2021 12:50 EDT Performed On: 08/27/2021 12:50 EDT by STEVEN MENDES station repairer Documentation Patient Disposition, General : Discharge Discharge To : Home with ambulatory/outpatient follow-up Education Comment : poc, meds, safety STEVEN MENDES RN - 08/27/2021 12:50 EDT Electronically signed by Lanny Cox [employer] Conversion Director Of Business Development Marisa at 03/09/2023 8:58 PM CDT documented in this encounter Plan of Treatment Not on file documented as of this encounter Visit Diagnoses Not on filedocumented in this encounter Care Teams Energy Attorney Relationship Specialty Start Date End Date Reji Castro MD [address] [place] [id number] PCP - General Adolescent Medicine 10/02/22 documented as of this encounter
--- OUTSIDE RECORDS SUMMARY | 2025-05-03 08:52 | XMS_ITS | Encounter Summary ---
Author Organization [employer] Address [address] [place] [address] Care Team Providers Care Tie Sawyer Name Role Phone Reji Castro MD Primary Care Provider [phone] Encounter Details Date Type Department Care Team (Late st Contact Info) Description 08/22/2021 Transcribed Document [facility] [place] [address] [place] [address] ProviderDelvin MD [address] [place] [address] Social History Tobacco Use Types Packs/Day Years Used Date Smoking Tobacco: Never Assessed Comments Unknown Sex and Gender Information Value Date Recorded Sex Assigned at Not on file Legal Sex Female 4:32 PM CDT Gender Identity Not on file Sexual Orientation Not on file documented as of this encounter Miscellaneous Notes * Cerner Conversion Note - Delvin ProviderMD - 08/22/2021 5:00 AM CDT Chart Check - Review Order Profile Entered On: 08/22/2021 4:12 EDT Performed On: 08/22/2021 5:00 EDT by Cady Moser, RN Chart Check Powerplans Initiated/Discontinued as Appropriate : Yes All Active Orders Reviewed : Yes Cady Moser, RN - 08/22/2021 4:12 EDT documented in this encounter Plan of Treatment Not on file documented as of this encounter Visit Diagnoses Not on filedocumented in this encounter Care Teams Tie Sawyer Relationship Specialty Start Date End Date Reji Castro MD [address] [place] [id number] PCP - General Adolescent Medicine 10/02/22 documented as of this encounter
--- OUTSIDE RECORDS SUMMARY | 2025-05-03 08:52 | XMS_ITS | Encounter Summary ---
Author Organization [employer] Address [address] [place] [address] Care Team Providers Care Environmental Health Specialist Name Role Phone Reji Castro MD Primary Care Provider + [phone] Encounter Details Date Type Department Care Team (Late st Contact Info) Description 08/12/2021 Transcribed Document [facility] [place] Family Medicine [address] [place] [address] ProviderDelvin MD [address] [place] [address] Social History Tobacco Use Types Packs/Day Years Used Date Smoking Tobacco: Never Assessed Comments Unknown Sex and Gender Information Value Date Recorded Sex Assigned at Not on file Legal Sex Female 4:32 PM CDT Gender Identity Not on file Sexual Orientation Not on file documented as of this encounter Miscellaneous Notes * Cerner Conversion Note - Delvin Celestin MD - 08/12/2021 9:08 AM CDT Patient: IRINA TAMAYO Age: 56 years Sex: Female : 1965 Associated Diagnoses: None Author: CHELI BEASLEY MD-CAR Basic Information Primary Synthetic Gem Press Operator: Dr. Delmar Geronimo Installation Manager: MD Nestor Chief Complaint Rule out endocarditis/h.o bioprosthetic Mitral Valve History of Present Illness 56 year old female with history of NICM with EF 35-40% , CHF, rheumatic valve disease s/p mechanical mitral valve replacement (2005), chronic atrial fibrillation with failed ablation in 2004 on chronic Coumadin, DMII, CKD, COPD and chronic anemia requiring recurrent transfusions (about 180 units, she has port placed). First week of June pt was scheduled for transfusion; her port could not be accessed, and the unit of blood was given peripherally. She followed up that week with her Tip Cementer, Dr. Thapa, who aspirated purulence from the port. 10-15 min later, she was driving home and developed fever 103, chills, headache and body aches. Presented to [facility] where she was admitted for IV ABX x 10 days r/t positive blood cultures. Pt reports a CHUCHO and TTE was negative for vegetation that admission. Following discharge, pt reports recurrence of headache, body aches and neck pain on 08/08/21. Her PCP ordered labs, and she was found to have positive blood cultures again and was started on antibiotics. However she continues to feel poorly with generalized weakness and muscle aches. PCP recommended ID evaluation. She presented for evaluation at [facility]. In the ER she was found to have Cr 2.5, ProBNP 813, H/H 9.5/31, INR 1.8. She endorses CP with deep breath and SOA. Reports no sig stenosis has ever been seen on prior LHCs. Currently, she is admitted to . ECHO Is pending. Review of Systems Constitutional: Negative except as documented in history of present illness. Eye: Negative except as documented in history of present illness. Ear/Nose/Mouth/Throat: Negative except as documented in history of present illness. Respiratory: Negative except as documented in history of present illness. Cardiovascular: Negative except as documented in history of present illness. Gastrointestinal: Negative except as documented in history of present illness. Genitourinary: Negative except as documented in history of present illness. Hematology/Lymphatics: Negative except as documented in history of present illness. Endocrine: Negative except as documented in history of present illness. Immunologic: Negative except as documented in history of present illness. Musculoskeletal: Negative except as documented in history of present illness. Integumentary: Negative except as documented in history of present illness. Neurologic: Alert and oriented X4. Psychiatric: Negative except as documented in history of present illness. Health Status Allergies (5) Active Reaction anabolic steroids Congestive heart failure Detrol Congestive heart failure Dye None Documented glipiZIDE Congestive heart failure metFORMIN Congestive heart failure Home Medications (18) Active ALPRAZolam 0.5 mg oral tablet 0.5 mg = 1 Tab, PRN, Oral, TID Aspir 81 81 mg, Oral, Daily Bumex 2 mg, Oral, BID Celexa 40 mg oral tablet 40 mg = 1 Tab, Oral, Daily Coumadin 5 mg oral tablet 5 mg = 1 Tab, Oral, Daily Dexilant 60 mg oral delayed release capsule 60 mg = 1 Cap, Oral, Daily famotidine 20 mg oral tablet 20 mg = 1 Tab, Oral, At Bedtime Farxiga 10 mg oral tablet 10 mg = 1 Tab, Oral, Daily folic acid 1 mg oral tablet 1 mg = 1 Tab, Oral, Daily Metoprolol Succinate ER 25 mg oral tablet, extended release 25 mg = 1 Tab, Oral, At Bedtime Percocet 10/325 oral tablet 2 Tab, PRN, Oral, Q8H potassium chloride 20 mEq oral tablet, extended release 20 mEq = 1 Tab, Oral, Daily Probiotic Formula oral capsule 1 Cap, Oral, Daily Senna 8.6 mg oral tablet 8.6 mg = 1 Tab, PRN, Oral, BID spironolactone 50 mg oral tablet 50 mg = 1 Tab, Oral, BID Toujeo SoloStar 80 Units, SubCutaneous, At Bedtime valsartan 40 mg, Oral, Daily Venofer See Instructions Problem list: All Problems Amblyopia / [id number] / Confirmed Arthritis / 7518937 / Confirmed Atrial fibrillation / 52760813 / Confirmed AIHA (autoimmune hemolytic anemia) / 2542442198 / Confirmed Back pain / [id number] / Confirmed Bowel obstruction / 400249776 / Confirmed Bronchitis / 69283338 / Confirmed Cardiac arrhythmia / 0378596976 / Confirmed Cardiomyopathy / 764075779 / Confirmed COPD / 16854954 / Confirmed Diabetes mellitus / 477458887 / Confirmed Diabetes mellitus type II / 74280386 / Confirmed Diverticulosis / 8021243780 / Confirmed Edema / 438351839 / Confirmed Fibromyalgia / 61306484 / Confirmed frequent headache / Confirmed GERD - Gastro-esophageal reflux disease / 6641181364 / Confirmed Heart failure / 741027954 / Confirmed Heart valve / 175248939 / Confirmed Hepatomegaly / 101824929 / Confirmed High blood pressure / 43511547 / Confirmed History of obstructive sleep apnea / 00041311 / Confirmed Hyperlipidemia / 31184396 / Confirmed Anemia, iron deficiency / 028112606 / Confirmed Lazy eye / 433686781 / Confirmed Myocardial infarction / 09762969 / Confirmed neuropathy hands and feet / Confirmed Ovarian cyst / 864843913 / Confirmed Renal calculus / 998762645 / Confirmed Restless legs syndrome / 12891613 / Confirmed Thyroid disease / 888398292 / Confirmed Histories No education data available. Social & Psychosocial Habits Tobacco 12/18/2013 Tobacco Use Within Last Twelve Months No Smoking Status Former smoker Years of Tobacco Use 30 Month Tobacco Last Used quit 2005 Past Medical History: Active Atrial fibrillation (96411172) Bioprosthetic mitral valve replacement (122614305) Chronic kidney disease (1073586822) COPD - Chronic obstructive pulmonary disease (158903233) HLD - Hyperlipidemia (632787497) HTN - Hypertension (1968023418) Family History: Reviewed. Non-contributory. Procedure history: Replacement, mitral valve, with cardiopulmonary bypass (67536) on 01/19/2006 at 40 Years. left jaw pin. sternotomy. hernia repair, abdominal. sigmoid colon resection. Tendon sheath incision (eg, for trigger finger) (26186). jaw surgery, left. great toe surger, left. excision of adrenal gland tumor (benign). ligament release right thumb. diagnostic laparoscopy with lysis of adhesions, fulgeration of implants. bilateral tubal ligation. spontaneous vaginal delivery x 2. cardiac catheterization. stent left ureter. Power Port in Left Chest. CardioMEMS in Left Pulmonary Artery. Tibial Plateu Left. Physical Examination VS/Measurements Vitals Signs (last 24 hrs) Last Charted Minimum Maximum Temp 98 (AUG 12 05:49) 97.8 (AUG 12 03:30) 98 (AUG 12 05:49) Mon HR 82 (AUG 12 05:49) 72 (AUG 11 18:55) 82 (AUG 11 21:28) Periph HR 76 (AUG 11 16:19) 76 (AUG 11 16:19) 76 (AUG 11 16:19) Resp Rate 16 (AUG 12 05:49) 16 (AUG 11 19:30) 18 (AUG 11 16:19) SBP 90 (AUG 12 05:49) L 86 (AUG 11 19:30) 112 (AUG 11 16:19) DBP L 46 (AUG 12 05:49) L 46 (AUG 12 05:49) 70 (AUG 12 02:00) MAP 61 (AUG 12 05:49) 61 (AUG 12 05:49) 80 (AUG 12 02:00) SpO2 98 (AUG 12 05:49) L 93 (AUG 11 19:00) 98 (AUG 11 16:19) General: Alert and oriented, No acute distress. Eye: Pupils are equal, round and reactive to light, Extraocular movements are intact, pale conjunctiva. HENT: Normocephalic, Normal hearing. Neck: Supple, Non-tender, No carotid bruit, No jugular venous distention. Respiratory: Lungs are clear to auscultation, Respirations are non-labored, Symmetrical chest wall expansion, chest wall tender to palpation over the sternum and L aspect of the chest. Cardiovascular: Normal rate, Normal peripheral perfusion, irregularly irregular rhythm , systolic murmur. Gastrointestinal: Soft, Non-distended, Normal bowel sounds. Musculoskeletal: Normal range of motion, Normal strength. Integumentary: Warm, Dry, [place]. Neurologic: Alert, Oriented. Psychiatric: Cooperative, Appropriate mood & affect. Review / Management AUG 12 00:22 L 134 L 98 H 69 / H 134 3.6 29 H 2.40 \ AUG 12 00:22 \ L 8.7 / 6.7 201 / L 28.3 \ Cardiac Markers (Current Encounter/Past 24 Hours) ProBNP 766 pg/mL [place] 08/12/2021 01:12 Blood Gases (Current Encounter/Past 24 Hours) No Blood Gas Results Found (Past 24 Hours) Radiology Results (Last 48 hours) [id number] -- 08/11/2021 21:21 CR Chest 1 Vw Portable (08/11/2021 18:02) [...] replacement.Generalized osteopeniaIMPRESSION:No active disease by portable imaging. Results review: Labs (Last four charted values) WBC 6.7 (AUG 12) 6.8 (AUG 11) HB L 8.7 (AUG 12) L 9.5 (AUG 11) HCT L 28.3 (AUG 12) L 31.3 (AUG 11) Plt 201 (AUG 12) 223 (AUG 11) Na L 134 (AUG 12) L 131 (AUG 11) K 3.6 (AUG 12) 4.1 (AUG 11) Cl L 98 (AUG 12) L 96 (AUG 11) CO2 29 (AUG 12) 26 (AUG 11) BUN H 69 (AUG 12) H 70 (AUG 11) Cr H 2.40 (AUG 12) H 2.50 (AUG 11) Glu R H 134 (AUG 12) 87 (AUG 11) Ca 9.6 (AUG 12) 10.0 (AUG 11) Lactic L .73 (AUG 11) PT H 18.9 (AUG 11) INR H 1.8 (AUG 11) PTT H 39.6 (AUG 11) AST 16 (AUG 12) 18 (AUG 11) ALT 23 (AUG 12) 25 (AUG 11) ALK P 110 (AUG 12) 128 (AUG 11) T Bili 0.6 (AUG 12) 0.7 (AUG 11) PTN 7.6 (AUG 12) H 8.7 (AUG 11) ALB 3.9 (AUG 12) 4.4 (AUG 11) Troponin <0.015 (AUG 12) <0.015 (AUG 11) <0.015 (AUG 11) . Impression and Plan IMPRESSION: Repeat admission for coagulase negative staph bacteremia Admitted [facility] 07/12, Negative CHUCHO, TTE for vegetation that admission Power Port placed 2016 for recurrent transfusion s/t chronic autoimmune anemia Hypotensive h.o mechanical Mitral Valve (2005). Permanent A-fib failed ablation h.o prior DCCV's Chronic Coumadin subtherapeutic INR 1.8 on arrival NICM EF 35-40% (remote ECHO) CardioMems (06/03/18) TRISTAN on CKD Cr 2.5 Baseline unknown DMII COPD PLAN; CHUCHO to assess for endocarditis & mechanical causes of hemolysis. Obtain records from [facility]. Check haptoglobin, LDH, reticulocyte count. Continue other current CV meds. documented in this encounter Plan of Treatment Not on file documented as of this encounter Visit Diagnoses Not on filedocumented in this encounter Care Teams Environmental Health Specialist Relationship Specialty Start Date End Date Reji Castro MD [address] [place] [id number] PCP - General Adolescent Medicine 10/02/22 documented as of this encounter
--- OUTSIDE RECORDS SUMMARY | 2025-05-03 08:52 | XMS_ITS | Encounter Summary ---
Author Organization [employer] Address [address] [place] [address] Care Team Providers Care Paper And Prints Restorer Name Role Phone Reji Castro MD Primary Care Provider + [phone] Encounter Details Date Type Department Care Team (Late st Contact Info) Description 08/16/2021 Transcribed Document [facility] [place] [address] [place] [address] ProviderDelvin MD [address] [place] [address] Social History Tobacco Use Types Packs/Day Years Used Date Smoking Tobacco: Never Assessed Comments Unknown Sex and Gender Information Value Date Recorded Sex Assigned at Not on file Legal Sex Female 4:32 PM CDT Gender Identity Not on file Sexual Orientation Not on file documented as of this encounter Miscellaneous Notes * Cerner Conversion Note - Delvin Celestin MD - 08/16/2021 5:00 PM CDT Chart Check - Review Order Profile Entered On: 08/16/2021 17:03 EDT Performed On: 08/16/2021 17:00 EDT by JULIO LUND RN-PATIENT CARE BEDSIDE NON-EXEMPT Chart Check Powerplans Initiated/Discontinued as Appropriate : Yes JULIO LUND RN-PATIENT CARE BEDSIDE NON-EXEMPT - 08/16/2021 17:03 EDT documented in this encounter Plan of Treatment Not on file documented as of this encounter Visit Diagnoses Not on filedocumented in this encounter Care Teams Paper And Prints Restorer Relationship Specialty Start Date End Date Reji Castro MD [address] [place] [address] PCP - General Adolescent Medicine 10/02/22 documented as of this encounter
--- OUTSIDE RECORDS SUMMARY | 2025-05-03 08:52 | XMS_ITS | Encounter Summary ---
Author Organization [employer] Address [address] [place] [address] Care Team Providers Care Nuclear Medical Tech Name Role Phone Reji Castro MD Primary Care Provider [phone] Encounter Details Date Type Department Care Team (Late st Contact Info) Description 08/22/2021 Transcribed Document [facility] [place] Family Medicine [address] [place] [address] ProviderDelvin MD [facility] [place] [address] Social History Tobacco Use Types Packs/Day Years Used Date Smoking Tobacco: Never Assessed Comments Unknown Sex and Gender Information Value Date Recorded Sex Assigned at Not on file Legal Sex Female 4:32 PM CDT Gender Identity Not on file Sexual Orientation Not on file documented as of this encounter Miscellaneous Notes * Cerner Conversion Note - Historical ProviderMD - 08/22/2021 2:00 AM CDT Nylon Hot Wire Cutter Details Entered On: 08/22/2021 4:12 EDT Performed On: 08/22/2021 2:00 EDT by Cady Moser, RN Order Details Transport Mode Order Detail : Wheelchair Isolation Precautions Order Detail : Standard Precautions Order Detail : 0 IV Order Detail : 1 Oxygen Order Detail : 0 Lift/Transfer : Independent Central Line Order Detail : Yes Room Service : Appropriate Arterial Line : No Patient Needs Meds Crushed/Liquid : No Cady Moser, RN - 08/22/2021 4:12 EDT documented in this encounter Plan of Treatment Not on file documented as of this encounter Visit Diagnoses Not on filedocumented in this encounter Care Teams Nuclear Medical Tech Relationship Specialty Start Date End Date Reji Castro MD [address] [place] [address] PCP - General Adolescent Medicine 10/02/22 documented as of this encounter
--- OUTSIDE RECORDS SUMMARY | 2025-05-03 08:52 | XMS_ITS | Encounter Summary ---
Author Organization [employer] Address [address] [place] [address] Care Team Providers Care Teacher Of The Deaf/Hard Of Hearing Name Role Phone Reji Castro MD Primary Care Provider [phone] Encounter Details Date Type Department Care Team (Late st Contact Info) Description 08/22/2021 Transcribed Document [facility] Radiology [address] [place] [address] Loren Solorzano MD [address] [place] [address] [address] [id number] Social History Tobacco Use Types Packs/Day Years Used Date Smoking Tobacco: Never Assessed Comments Unknown Sex and Gender Information Value Date Recorded Sex Assigned at Not on file Legal Sex Female 4:32 PM CDT Gender Identity Not on file Sexual Orientation Not on file documented as of this encounter Miscellaneous Notes * Cerner Conversion Note - Loren Solorzano MD - 08/22/2021 10:40 AM EDT Patient: IRINA TAMAYO Age: 56 years Sex: Female : 1965 Associated Diagnoses: None Author: LOREN SOLORZANO MD-INT Subjective Patient feeling better today. Ambulate by herself. No chest pain. Lower extremities edema improving. No nosebleed or gum bleed. No bright red blood per rectum. Review of Systems Constitutional: No fever, No [...] cefTRIAXone: 2 Gram, 100 mL/Hr, IV Piggyback, [id number] diphenhydrAMINE: 25 mg, Oral, Q6H, PRN: Itching [...] Nausea pantoprazole: 40 mg, Oral, Daily spironolactone: 50 mg, Oral, BID Documented Medications Documented ALPRAZolam [...] Oral, BID cefTRIAXone 2 Gram, IV Piggyback, X43HAmy citalopram 20 mg tab 40 mg 2 [...] Tab, Oral, BID spironolactone 25 mg tab 50 mg 2 Tab, Oral, BID warfarin 3 mg tab [...] Bioprosthetic mitral valve replacement / SNOMED CT 562725737 / Confirmed Chronic kidney disease / SNOMED CT 7530416113 / Confirmed COPD - Chronic obstructive pulmonary disease / SNOMED CT 674268135 / Confirmed History of obstructive sleep apnea / IMO 55139322 / Confirmed HLD - Hyperlipidemia / SNOMED CT 054237083 / Confirmed HTN - Hypertension / SNOMED CT 5221294874 / Confirmed Canceled: Atrial fibrillation / SNOMED CT 86314405, Active Problems (25) AIHA (autoimmune hemolytic anemia) [...] (AUG 22 03:15) 97.6 (AUG 21 23:30) 98.2 (AUG 21 10:42) Apical HR 89 (AUG 21 21:14) 89 (AUG 21 21:14) 89 (AUG 21 21:14) Mon HR 85 (AUG 22 03:15) 61 (AUG 21 10:42) 87 (AUG 21 15:06) Resp Rate 16 (AUG 22 03:15) 16 (AUG 22 03:15) 18 (AUG 21 10:42) SBP 98 (AUG 22 03:15) 98 (AUG 22 03:15) 112 (AUG 21 15:00) DBP L 50 (AUG 22 03:15) L 47 (AUG 21 15:00) 62 (AUG 21 23:30) MAP 63 (AUG 22 03:15) 63 (JUL 30 10:42) 77 (JUL 30 15:00) SpO2 97 (AUG 22 03:15) L 92 (AUG 21 10:42) 100 (JUL 30 15:06) General: Alert and oriented, No acute distress. [...] mood & affect. Review / Management AUG 22 06:45 138 102 19 / H 137 3.7 H 33 H 1.40 \ AUG 22 06:45 \ L 7.5 / 7.0 181 / L 25.6 \ No Radiology Results Found Results review: Labs (Last four charted values) WBC 7.0 (AUG 22) 7.4 (AUG 21) 8.1 (AUG 20) H 10.8 (AUG 19) HB L 7.5 (AUG 22) L 7.4 (JUL 30) L 7.7 (AUG 20) L 7.2 (AUG 19) HCT L 25.6 (AUG 22) L 25.2 (SEP 30) L 25.9 (SEP 29) L 25.3 (AUG 19) Plt 181 (AUG 22) 188 (SEP 30) 210 (SEP 29) 207 (SEP ) Na 138 (AUG 22) 138 (SEP 30) 138 (SEP 29) 137 (SEP ) K 3.7 (AUG 22) 3.8 (SEP 30) 3.9 (SEP 29) 4.3 (SEP ) Cl 102 (AUG 22) 103 (SEP 30) 103 (SEP 29) 105 (SEP ) CO2 H 33 (AUG 22) 31 (SEP 30) 29 (SEP 29) 28 (SEP 28) BUN 19 (AUG 22) 19 (SEP 30) 18 (SEP 29) 16 (SEP 28) Cr H 1.40 (AUG 22) H 1.30 (SEP 30) H 1.40 (SEP 29) H 1.60 (SEP ) Glu R H 137 (AUG 22) H 129 (SEP 30) H 125 (SEP 29) H 191 (SEP ) Ca 8.9 (AUG 22) 8.6 (SEP 30) 9.1 (SEP 29) 9.2 (SEP ) Lactic .93 (AUG 12) L .73 (AUG [...] from Previous Midnight to Current New Medications: warfarin (Coumadin) 6 mg, Oral, Tab, Daily, Routine, Start 08/22/21 18:00:00 EDT, 08/11/21 20:44:00 EDT LOREN SOLORZANO MD-INT Discontinued Medications: diphenhydrAMINE 50 mg, IV Push, Inj, On-CALL, PRN for Anaphylaxis, Start 08/17/21 13:07:00 EDT SIERRA MONTGOMERY MD-NEP EPINEPHrine 1 mg, IntraMuscular, Inj, On-CALL, PRN for Anaphylaxis, Start 08/17/21 13:07:00 EDT SIERRA MONTGOMERY MD-NEP warfarin (Coumadin) 6 mg, Oral, Tab, Daily, Routine, Start 08/19/21 18:00:00 EDT, 08/11/21 20:44:00 EDT LOREN SOLORZANO MD-INT Impression and Plan # MSSA bacteremia cultures positive from OSH Patient has mitral valve replacement as well as multiple sites of metal in her body?CHUCHO neg for endocarditis ID following: Cefazolin, Daptomycin?will need IV antibiotics until at least 09/08 Received 2 dose vancomycin Port removed 08/14. Catheter tip cultures pending Repeat blood cx NGTD S/P Port-A-Cath placement 08/18/2021. po Coumadin and IV heparin resumed Discussed with pharmacy. Surgery following #Acute on chronic kidney disease III Suspect component of CKD, worsening with hypovolemia/dehydration Creatinine improving Nephrology following Avoid nephrotoxic medications Started on p.o. Bumex per nephrology #Autoimmune hemolytic anemia Patient has been followed by hematology/oncology Monitor Hgb, transfuse as needed if hemoglobin less than 7.0 g/dL. No active bleed Iron supplementation, folic acid [...] Hold home meds SSI #Depression Celexa #Pain Leroy 10 mg every 6 hours as needed CODE STATUS. Full code Dispo: Given patient with history of multiple transfusion we will keep patient in the hospital on heparin drip and Coumadin till INR therapeutic need IV abx, at least until 09/08. Discussed with pillowcase sewer. and pharmcy Time spent 25 minutes documented in this encounter Plan of Treatment Not on file documented as of this encounter Visit Diagnoses Not on filedocumented in this encounter Care Teams Teacher Of The Deaf/Hard Of Hearing Relationship Specialty Start Date End Date Reji Castro MD [address] [place] [id number] PCP - General Adolescent Medicine 10/02/22 documented as of this encounter
--- OUTSIDE RECORDS SUMMARY | 2025-05-03 08:52 | XMS_ITS | Encounter Summary ---
Author Organization [employer] Address [address] [place] [address] Care Team Providers Care Electrical Systems Design Engineer Name Role Phone Reji Castro MD Primary Care Provider [phone] Encounter Details Date Type Department Care Team (Late st Contact Info) Description 08/15/2021 Transcribed Document [facility] [place] [facility] [place] [address] ProviderDelvin MD [facility] [place], [place] [address] Social History Tobacco Use Types Packs/Day Years Used Date Smoking Tobacco: Never Assessed Comments Unknown Sex and Gender Information Value Date Recorded Sex Assigned at Not on file Legal Sex Female 4:32 PM CDT Gender Identity Not on file Sexual Orientation Not on file documented as of this encounter Miscellaneous Notes * Cerner Conversion Note - Delvin ProviderMD - 08/15/2021 2:00 AM CDT Inspector Assembly Details Entered On: 08/15/2021 1:25 EDT Performed On: 08/15/2021 2:00 EDT by Pau Armstrong RN - International Order Details Transport Mode Order Detail : Ambulatory Isolation Precautions Order Detail : Standard Precautions Order Detail : 0 Lift/Transfer : Independent Central Line Order Detail : No Room Service : Appropriate Arterial Line : No Patient Needs Meds Crushed/Liquid : No Pau Armstrong RN - International - 08/15/2021 1:25 EDT documented in this encounter Plan of Treatment Not on file documented as of this encounter Visit Diagnoses Not on filedocumented in this encounter Care Teams Electrical Systems Design Engineer Relationship Specialty Start Date End Date Reji Castro MD [address] [place] [id number] PCP - General Adolescent Medicine 10/02/22 documented as of this encounter
--- OUTSIDE RECORDS SUMMARY | 2025-05-03 08:52 | XMS_ITS | Encounter Summary ---
Author Organization [employer] Address [address] [place] [address] Care Team Providers Care Pipe Changer Name Role Phone Reji Castro MD Primary Care Provider [phone] Encounter Details Date Type Department Care Team (Late st Contact Info) Description 08/21/2021 Transcribed Document [facility] Radiology [address] [place] [address] Loren Solorzano MD [address] [place] [address] [address] [id number] Social History Tobacco Use Types Packs/Day Years Used Date Smoking Tobacco: Never Assessed Comments Unknown Sex and Gender Information Value Date Recorded Sex Assigned at Not on file Legal Sex Female 4:32 PM CDT Gender Identity Not on file Sexual Orientation Not on file documented as of this encounter Miscellaneous Notes * Cerner Conversion Note - Loren Solorzano MD - 08/21/2021 11:58 AM EDT Patient: IRINA TAMAYO Age: 56 years Sex: Female : 1965 Associated Diagnoses: None Author: LOREN SOLORZANO MD-INT Subjective Patient feeling better today. out to chair no nose bleed her doughter pushing and want blood transfusion Review of Systems Constitutional: No fever, No [...] cefTRIAXone: 2 Gram, 100 mL/Hr, IV Piggyback, [id number] diphenhydrAMINE: 25 mg, Oral, Q6H, PRN: Itching [...] Oral, BID, 180 Tab, 0 Refill(s), Medications (38) Active Scheduled: (16) aspirin 81 mg chew tab 81 mg 1 Tab, Oral, Daily bumetanide 1 mg tab 2 mg 2 Tab, Oral, BID cefTRIAXone 2 Gram, IV Piggyback, [id number] citalopram 20 mg tab 40 mg 2 [...] 250 mg 20 mL, IV Piggyback, Daily spironolactone 25 mg tab 50 mg 2 [...] Bioprosthetic mitral valve replacement / SNOMED CT 412042769 / Confirmed Chronic kidney disease / SNOMED CT 1751904902 / Confirmed COPD - Chronic obstructive pulmonary disease / SNOMED CT 704777304 / Confirmed History of obstructive sleep apnea / IMO 67672342 / Confirmed HLD - Hyperlipidemia / SNOMED CT 453065319 / Confirmed HTN - Hypertension / SNOMED CT 4331269851 / Confirmed Canceled: Atrial fibrillation / SNOMED CT 20751814, Active Problems (25) AIHA (autoimmune hemolytic anemia) [...] 21 06:00) 97.6 (AUG 21 06:00) 98 ([facility] 11:00) Apical HR 70 (AUG 20 20:27) 70 (AUG 20 20:27) 70 (AUG 20 20:27) Mon HR 61 (AUG 21 06:00) 61 (AUG 21 06:00) 89 ([facility] 11:00) Resp Rate 15 (AUG 21 06:00) 15 (AUG 21 06:00) 18 (AUG 20 11:00) SBP 101 (AUG 21 06:00) 95 (AUG 20 23:30) 127 ([facility] 11:00) DBP 68 (AUG 21 06:00) L 50 (AUG 20 15:00) 80 ([facility] 11:00) MAP 78 (AUG 21 06:00) 63 (AUG 20 15:00) 92 (AUG 20 11:00) SpO2 95 (AUG 21 06:00) L 92 (AUG 20 17:05) 95 (AUG 21 06:00) General: Alert and oriented, No acute distress. [...] mood & affect. Review / Management AUG 21 01:38 138 103 19 / H 129 3.8 31 H 1.30 \ AUG 21 01:38 \ L 7.4 / 7.4 188 / L 25.2 \ No Radiology Results Found Results review: Labs (Last four charted values) WBC 7.4 (AUG 21) 8.1 (AUG 20) H 10.8 (AUG 19) 7.0 (AUG 18) HB L 7.4 (AUG 21) L 7.7 (AUG 20) L 7.2 (AUG 19) L 7.7 (AUG 18) HCT L 25.2 (AUG 21) L 25.9 (AUG 20) L 25.3 (AUG 19) L 26.2 (AUG 18) Plt 188 (AUG 21) 210 (AUG 20) 207 (AUG 19) 207 (AUG 18) Na 138 (AUG 21) 138 (AUG 20) 137 (AUG 19) L 134 (AUG 18) K 3.8 (JUL 30) 3.9 (AUG 20) 4.3 (AUG 19) 4.6 (AUG 18) Cl 103 (JUL 30) 103 (AUG 20) 105 (SEP ) 105 (AUG 18) CO2 31 (SEP 30) 29 (SEP ) 28 (SEP ) 28 (AUG 18) BUN 19 (AUG 21) [...] from Previous Midnight to Current New Medications: polyethylene glycol 3350 (MiraLax) 17 Gram, Oral, Powder, Daily, PRN for Constipation, Routine, Start 08/20/21 11:16:00 EDT LOREN SOLORZANO MD-INT spironolactone 50 mg, Oral, Tab, BID, Routine, Start 08/20/21 21:00:00 EDT, 08/20/21 16:52:00 EDT JENNA BULL MD Discontinued Medications: No Qualifying Discontinued Meds Impression and Plan # MSSA bacteremia cultures [...] Hold home meds SSI #Depression Celexa #Pain Zoe 10 mg every 6 hours as needed Dispo: Given patient with history of multiple transfusion we will keep patient in the hospital on heparin drip and Coumadin till INR therapeutic need IV abx, at least until 09/08. Discussed with field case manager. and pharmcy Time spent 25 minutes documented in this encounter Plan of Treatment Not on file documented as of this encounter Visit Diagnoses Not on filedocumented in this encounter Care Teams Pipe Changer Relationship Specialty Start Date End Date Reji Castro MD [address] [place] [address] PCP - General Adolescent Medicine 10/02/22 documented as of this encounter
--- OUTSIDE RECORDS SUMMARY | 2025-05-03 08:52 | XMS_ITS | Encounter Summary ---
Author Organization [employer] Address [address] [place] [address] Care Team Providers Care Easter Bunny Name Role Phone Reji Castro MD Primary Care Provider [phone] Encounter Details Date Type Department Care Team (Late st Contact Info) Description 08/27/2021 Transcribed Document [facility] Family Medicine [address] [place] [address] ProviderDelvin MD [address] [place] [address] Social History Tobacco Use Types Packs/Day Years Used Date Smoking Tobacco: Never Assessed Comments Unknown Sex and Gender Information Value Date Recorded Sex Assigned at Not on file Legal Sex Female 4:32 PM CDT Gender Identity Not on file Sexual Orientation Not on file documented as of this encounter Miscellaneous Notes * Cerner Conversion Note - Delvin Celestin MD - 08/27/2021 2:36 PM CDT Final Discharge Planning Entered On: 08/27/2021 14:45 EDT Performed On: 08/27/2021 14:36 EDT by SHAISTA WOLFF Solid Waste Collection Worker Final Discharge Planning Discharge Arrangements : Patient Post-Acute Information Patient Name: IRINA TAMAYO Gender: Female : [birth year] Age: 56 Years No Post-Acute Placement(s) Listed No Post-Acute Service(s) Listed No Curaspan Referral(s) Listed Patient Offered Choice/Affiliations Explained : Yes Designation of Choice Signed : Yes Important Medicare Message Reviewed With : Patient Important Medicare Message Reviewed D/T : 08/27/2021 13:30 EDT Transportation Needs : Car Discharge Transportation Arrangement Cmt : family Follow Up Appointment Scheduled : Yes Is Patient High/Moderate Readmission Risk? : No Patient/Family Notified of Plan : Yes Is Patient Ready for Discharge? : Yes Discharge To Care Management : Home Health Services (Related/SOC within 3 days)-06 SHAISTA WOLFF Solid Waste Collection Worker - 08/27/2021 14:36 EDT Final Narrative Note Final Narrative Note : Admission day 16, on room air to discharge home today, transport via s/o Jorge, who will assist with care. Home health for lab work and Port-a cath care via [facility] ([phone]/Radha Souza), IV Abx via [facility], they will deliver medication to patient's home this evening and patient was taught at bedside how to give herself the infusion, patient's follow up Coumadin Clinic (via [facility] [phone]/cBrett) appt set for 09/03/2021 at 0900. All other appointments in place via Virtual RN. Pt, RN aware and in agreement with plan. SHAISTA WOLFF Social Worker - 08/27/2021 14:36 EDT documented in this encounter Plan of Treatment Not on file documented as of this encounter Visit Diagnoses Not on filedocumented in this encounter Care Teams Easter Bunny Relationship Specialty Start Date End Date Reji Castro MD [address] [place] [address] PCP - General Adolescent Medicine 10/02/22 documented as of this encounter
--- OUTSIDE RECORDS SUMMARY | 2025-05-03 08:52 | XMS_ITS | Encounter Summary ---
Author Organization Healthcare Address [address] [place] [address] Care Team Providers Care Information Assurance Officer Name Role Phone Anna Marie Savage MD Primary Care Provider [phone] Reji Castro MD Primary Care Provider [phone] Encounter Details Date Type Department Care Team (Late st Contact Info) Description 10/05/2022 Orders Only External Location [address] [place] [address] Provider, External Social History Tobacco Use Types Packs/Day Years Used Date Smoking Tobacco: Former Alcohol Use Standard Drinks/Week Comments No 0 (1 standard drink = 0.6 oz pure alcohol) Alcoholic Drinks/day: No history of alcohol use Comments Unknown Sex and Gender Information Value Date Recorded Sex Assigned at Not on file Legal Sex Female 7:29 PM EDT Gender Identity Not on file Sexual Orientation Not on file documented as of this encounter Plan of Treatment Not on file documented as of this encounter Procedures Procedure Name Priority Date/Time Associated Diagnosis Comments NM OUTSIDE IMAGES 10/05/2022 11:13 AM EST documented in this encounter Results * NM OUTSIDE IMAGES (10/05/2022 11:13 AM EST) Anatomical Region Laterality Modality Nuclear Medicine 10/05/2022 11:1 3 AM EST us External Provider IMG NM PROCEDURES Final Result documented in this encounter Visit Diagnoses Not on filedocumented in this encounter Care Teams Information Assurance Officer Relationship Specialty Start Date End Date Anna Marie Savage MD [address] [place] [id number] PCP - General 04/04/21 12/07/23 Rjei Castro MD [address] [facility] [address] [place] [address] PCP - General Internal Medicine 12/08/23 documented as of this encounter
--- OUTSIDE RECORDS SUMMARY | 2025-05-03 08:52 | XMS_ITS | Encounter Summary ---
Author Organization [employer] Address [address] [facility] [place] [address] Care Team Providers Care Ethylbenzene Converter Helper Name Role Phone Reji Castro MD Primary Care Provider [phone] Encounter Details Date Type Department Care Team (Late st Contact Info) Description 10/02/2022 Outside Orders [facility] Central Scheduling [address] [place] [address] Marion Umana MD [address] [facility] [address] [place], [place] [id number] Stage 3 chronic kidney disease, unspecified whether [...] as of this encounter Visit Diagnoses Diagnosis Stage 3 chronic kidney disease, unspecified whether stage 3a or 3b CKD (HCC)- Primary documented in this encounter Care Teams Ethylbenzene Converter Helper Relationship Specialty Start Date End Date Reji Castro MD [address] [place] [address] PCP - General Adolescent Medicine 10/02/22 documented as of this encounter
--- OUTSIDE RECORDS SUMMARY | 2025-05-03 08:52 | XMS_ITS | Encounter Summary ---
Author Organization [employer] Address [address] [place] [address] Care Team Providers Care Policy Change Clerk Name Role Phone Reji Castro MD Primary Care Provider [phone] Encounter Details Date Type Department Care Team (Late st Contact Info) Description 08/12/2021 Transcribed Document [facility] [place] [address] [place] [address] ProviderDelvin MD [address] [place] [address] Social History Tobacco Use Types Packs/Day Years Used Date Smoking Tobacco: Never Assessed Comments Unknown Sex and Gender Information Value Date Recorded Sex Assigned at Not on file Legal Sex Female 4:32 PM CDT Gender Identity Not on file Sexual Orientation Not on file documented as of this encounter Miscellaneous Notes * Cerner Conversion Note - Delvin ProviderMD - 08/12/2021 12:28 PM CDT Pain Assessment Entered On: 08/15/2021 18:09 EDT Performed On: 08/15/2021 9:16 EDT by Nataly Watkins RN Intervention Information: acetaminophen-oxyCODONE Performed by Nataly Watkins RN on 08/15/2021 08:16:00 EDT acetaminophen-oxyCODONE,1Tab Oral,Pain (Severe 7-10) Pain Assessment Pain Assessment : Follow-up assessment Pain Scale Goal : 4 Pain Improved by Intervention : Yes Nataly Watkins RN - 08/15/2021 18:09 EDT documented in this encounter Plan of Treatment Not on file documented as of this encounter Visit Diagnoses Not on filedocumented in this encounter Care Teams Policy Change Clerk Relationship Specialty Start Date End Date Reji Castro MD [address] [place] [address] PCP - General Adolescent Medicine 10/02/22 documented as of this encounter
--- OUTSIDE RECORDS SUMMARY | 2025-05-03 08:52 | XMS_ITS | Encounter Summary ---
Author Organization Healthcare Address [address] [place] [address] Care Team Providers Care Signal Wirer Name Role Phone Anna Marie Savage MD Primary Care Provider [phone] Reij aCstro MD Primary Care Provider [phone] Encounter Details Date Type Department Care Team (Late st Contact Info) Description 07/09/2023 Orders Only External Location [address] [place] [address] Karen Benson MD [address] [place] [address] Social History Tobacco Use Types Packs/Day Years Used Date Smoking Tobacco: Former Cigarettes 0.5 30 1 976 - 2006 Smokeless Tobacco: Never Alcohol Use Standard Drinks/Week Comments No 0 (1 standard drink = 0.6 oz pure alcohol) Alcoholic Drinks/day: No history of alcohol use PHQ-2 Answer Date Recorded Patient Health Questionnaire-2 Score 0 06/22/2023 PHQ-2A Answer Date Recorded Patient Health Questionnaire-2 Score 0 06/22/2023 Comments Unknown Sex and Gender Information Value Date Recorded Sex Assigned at Not on file Legal Sex Female 7:29 PM EDT Gender Identity Not on file Sexual Orientation Not on file documented as of this encounter Plan of Treatment Not on file documented as of this encounter Procedures Procedure Name Priority Date/Time Associated Diagnosis Comments XR OUTSIDE IMAGES 07/09/2023 9:55 AM EDT documented in this encounter Results * XR OUTSIDE IMAGES (07/09/2023 9:55 AM EDT) Anatomical Region Laterality Modality Radiographic Silvia ging 07/09/2023 9:55 AM EDT us Karen Benson MD IMG XR PROCEDURES Final Result documented in this encounter Visit Diagnoses Not on filedocumented in this encounter Additional Health Concerns Assessment Noted Time A Body Mass Index follow-up plan has been documented for the patient 06/22/2023 11:18 AM EDT documented as of this encounter Care Teams Signal Wirer Relationship Specialty Start Date End Date Anna Marie Savage MD [address] [place], [place] [id number] PCP - General 04/04/21 12/07/23 Reji Castro MD [address] [place] [address] [address] [place] [address] PCP - General Internal Medicine 12/08/23 documented as of this encounter
--- OUTSIDE RECORDS SUMMARY | 2025-05-03 08:52 | XMS_ITS | Encounter Summary ---
Author Organization [employer] Address [address] [place] [address] Care Team Providers Care Security Patrol Officer Name Role Phone Reji Castro MD Primary Care Provider [phone] Encounter Details Date Type Department Care Team (Late st Contact Info) Description 08/21/2021 Transcribed Document [facility] Family Medicine [place] [address] ProviderDelvin MD [place] [address] Social History Tobacco Use Types Packs/Day Years Used Date Smoking Tobacco: Never Assessed Comments Unknown Sex and Gender Information Value Date Recorded Sex Assigned at Not on file Legal Sex Female 4:32 PM CDT Gender Identity Not on file Sexual Orientation Not on file documented as of this encounter Miscellaneous Notes * Cerner Conversion Note - Delvin Celestin MD - 08/21/2021 3:42 PM CDT Patient: IRINA TAMAYO Age: 56 [...] her port could not be accessed. Her soybean grower aspirated fluid from the port that was evidently purulent. I have not yet been able to track down that culture. After the aspiration she developed fever to 103, severe CHEUNG, myalgias and arthralgias. She was admitted to [facility]. She was in the hospital for 10 [...] antibiotics. On 08/08 she presented to a [facility] after she developed severe CHEUNG and myalgias w/o prominent fever. She was subsequently contacted and told to report to [facility] because she had + blood cutures concerning for an infected portacath +/- PVE. 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, 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 [employer] Review of Systems ROS reviewed as documented [...] cefTRIAXone: 2 Gram, 100 mL/Hr, IV Piggyback, [id number] diphenhydrAMINE: 25 mg, Oral, Q6H, PRN: Itching [...] Last Charted Minimum Maximum Temp 98 (AUG 21 15:06) 97.6 (AUG 21 06:00) 98.1 (AUG 20 17:05) Apical HR 70 (AUG 20 20:27) 70 (AUG 20 20:27) 70 (AUG 20 20:27) Mon HR 87 (AUG 21 15:06) 61 (AUG 21 06:00) 87 (AUG 20 23:30) Resp Rate 18 (AUG 21 15:06) 15 (AUG 21 06:00) 18 (AUG 20 23:30) SBP 112 (AUG 21 15:00) 95 (AUG 20 23:30) 112 (AUG 21 15:00) DBP L 47 (AUG 21 15:00) L 47 (AUG 21 15:00) 68 (AUG 21 06:00) MAP 77 (AUG 21 15:00) 63 (AUG 21 10:42) 82 (AUG 20 17:05) SpO2 100 (AUG 21 15:06) L 92 (AUG 20 17:05) 100 (AUG 21 15:06) General: Alert and oriented, No acute [...] tenderness, No swelling, No deformity. Integumentary: Warm, Sandoval. Neurologic: Alert, Oriented, No focal deficits. Psychiatric: [...] 18) Plt 188 (JUL 30) 210 (SEP 29) 207 (AUG 19) 207 (AUG 18) Na 138 (JUL 30) 138 (AUG 20) 137 (AUG 19) L 134 (AUG 18) K 3.8 (JUL 30) 3.9 (AUG 20) 4.3 (AUG 19) 4.6 (AUG 18) Cl 103 (SEP 30) 103 (AUG 20) 105 (AUG 19) 105 (AUG 18) CO2 31 (SEP 30) 29 (SEP ) 28 (SEP ) 28 (AUG 18) BUN 19 (JUL 30) 18 (AUG 20) 16 (AUG 19) 18 (AUG 18) Cr H 1.30 (JUL 30) H 1.40 (AUG 20) H 1.60 (AUG 19) H 1.40 (AUG 18) Glu R H 129 (SEP 30) H 125 (JUL 29) H 191 (AUG 19) H 137 (AUG 18) Ca 8.6 (JUL 30) 9.1 (AUG 20) 9.2 (AUG 19) 8.8 [...] COPd -- Remote tobacco abuse RECOMMENDATIONS -- Home on rocephin 2g daily when ok with hospitalist -- new portacath placement 08/19 -- continue rocephin 2g daily to 09/08 to complete 4 weeks therapy. -- Defer to hospitalist re: resuming oral anticoagulation after surgery Discussed at length with patient Electronically signed by Stevie Ca Conversion Water Resources Technical Officer Marisa at 03/09/2023 8:32 PM CDT documented in this encounter Plan of Treatment Not on file documented as of this encounter Visit Diagnoses Not on filedocumented in this encounter Care Teams Security Patrol Officer Relationship Specialty Start Date End Date Reji Castro MD [address] [place] [address] PCP - General Adolescent Medicine 10/02/22 documented as of this encounter
--- OUTSIDE RECORDS SUMMARY | 2025-05-03 08:52 | XMS_ITS | Encounter Summary ---
Author Organization [employer] Address [address] [place] [address] Care Team Providers Care Cooling System Operator Name Role Phone Reji Castro MD Primary Care Provider [phone] Encounter Details Date Type Department Care Team (Late st Contact Info) Description 08/22/2021 Transcribed Document [facility] [place] [address] [place], [place] [id number] ProviderDelvni MD [address] [place] [address] Social History Tobacco Use Types Packs/Day Years Used Date Smoking Tobacco: Never Assessed Comments Unknown Sex and Gender Information Value Date Recorded Sex Assigned at Not on file Legal Sex Female 4:32 PM CDT Gender Identity Not on file Sexual Orientation Not on file documented as of this encounter Miscellaneous Notes * Cerner Conversion Note - Delvin Celestin MD - 08/22/2021 3:51 PM CDT Patient: IRINA TAMAYO Age: 56 [...] cefTRIAXone: 2 Gram, 100 mL/Hr, IV Piggyback, [id number] diphenhydrAMINE: 25 mg, Oral, Q6H, PRN: Itching [...] Oral, BID cefTRIAXone 2 Gram, IV Piggyback, [id number] citalopram 20 mg tab 40 mg 2 [...] Bioprosthetic mitral valve replacement / SNOMED CT 505754786 / Confirmed Chronic kidney disease / SNOMED CT 4066896205 / Confirmed COPD - Chronic obstructive pulmonary disease / SNOMED CT 926777912 / Confirmed History of obstructive sleep apnea / IMO [id number] / Confirmed HLD - Hyperlipidemia / SNOMED CT 905676849 / Confirmed HTN - Hypertension / SNOMED CT 9480248404 / Confirmed Canceled: Atrial fibrillation / SNOMED CT 30164993, Active Problems (25) AIHA (autoimmune hemolytic anemia) [...] Maximum Temp 98 (AUG 22 03:15) 97.6 (JUL 30 23:30) 98 (AUG 22 03:15) Apical HR 89 (JUL 30 21:14) 89 (JUL 30 21:14) 89 (JUL 30 21:14) Mon HR 85 (AUG 22 03:15) [...] 22 03:15) 63 (AUG 22 03:15) 76 (JUL 30 23:30) SpO2 97 (AUG 22 13:14) 97 (AUG 22 03:15) 97 (AUG 22 03:15) General: No acute distress. Eye: Extraocular movements [...] (AUG 19) Na 138 (AUG 22) 138 (JUL 30) 138 (AUG 20) 137 (AUG 19) K [...] 3.5 (SEP 24) 3.8 (SEP ) 3.9 (AUG 13) Lipase 224 (AUG 13) Troponin <0.015 (AUG 12) <0.015 (AUG 11) <0.015 (AUG 11) . AUG 22 06:45 138 102 19 / H 137 3.7 H 33 H 1.40 \ AUG 22 06:45 \ L 7.5 / 7.0 181 / L 25.6 \ Impression and Plan Dx and Plan [...] T sat 6%. S/P IV iron. Recommendations: Cont on Bumex 2 mg bid and spironolactone 50 mg BID. Excellent UOP Monitor I/O Avoid nephrotoxic agents. Monitor GFR adjust medications. documented in this encounter Plan of Treatment Not on file documented as of this encounter Visit Diagnoses Not on filedocumented in this encounter Care Teams Cooling System Operator Relationship Specialty Start Date End Date Reji Castro MD [address] [place] [address] PCP - General Adolescent Medicine 10/02/22 documented as of this encounter
--- OUTSIDE RECORDS SUMMARY | 2025-05-03 08:52 | XMS_ITS | Encounter Summary ---
Author Organization [employer] Address [address] [place] [address] Care Team Providers Care Housekeeper/Laundry Assistant Name Role Phone Reji Castro MD Primary Care Provider [phone] Encounter Details Date Type Department Care Team (Late st Contact Info) Description 08/21/2021 Transcribed Document [facility] [place] [address] [place] [address] ProviderDelvin MD [address] [place] [address] Social History Tobacco Use Types Packs/Day Years Used Date Smoking Tobacco: Never Assessed Comments Unknown Sex and Gender Information Value Date Recorded Sex Assigned at Not on file Legal Sex Female 4:32 PM CDT Gender Identity Not on file Sexual Orientation Not on file documented as of this encounter Miscellaneous Notes * Cerner Conversion Note - Delvin ProviderMD - 08/21/2021 5:00 AM CDT Chart Check - Review Order Profile Entered On: 08/21/2021 6:32 EDT Performed On: 08/21/2021 5:00 EDT by Genna Gonsalez, RN Chart Check Powerplans Initiated/Discontinued as Appropriate : Yes All Active Orders Reviewed : Yes Genna Gonsalez RN - 08/21/2021 6:31 EDT documented in this encounter Plan of Treatment Not on file documented as of this encounter Visit Diagnoses Not on filedocumented in this encounter Care Teams Housekeeper/Laundry Assistant Relationship Specialty Start Date End Date Reji Castro MD [address] [place] [address] PCP - General Adolescent Medicine 10/02/22 documented as of this encounter
--- OUTSIDE RECORDS SUMMARY | 2025-05-03 08:52 | XMS_ITS | Encounter Summary ---
Author Organization [employer] Address [address] [place] [address] Care Team Providers Care Hvac Instructor Name Role Phone Reji Castro MD Primary Care Provider [phone] Encounter Details Date Type Department Care Team (Late st Contact Info) Description 08/27/2021 Transcribed Document [facility] [place] [address] [place] [address] ProviderDelvin MD [address] [place] [address] Social History Tobacco Use Types Packs/Day Years Used Date Smoking Tobacco: Never Assessed Comments Unknown Sex and Gender Information Value Date Recorded Sex Assigned at Not on file Legal Sex Female 4:32 PM CDT Gender Identity Not on file Sexual Orientation Not on file documented as of this encounter Miscellaneous Notes * Cerner Conversion Note - Delvin ProviderMD - 08/27/2021 10:31 AM CDT Stroke/Warfarin Instructions Entered On: 08/27/2021 10:32 EDT Performed On: 08/27/2021 10:31 EDT by Sallie Solorzano RN-[employer] Stroke/Warfarin Instructions Stroke/TIA Discharge Ins : N/A Sallie Solorzano RN-[employer] - 08/27/2021 10:34 EDT Warfarin Discharge Ins : Open Sallie Solorzano RN-[employer] - 08/27/2021 10:31 EDT Warfarin Discharge Instructions Physician to Manage Warfarin : Sallie Tavarez RN-[employer] - 08/27/2021 10:34 EDT Indication for Warfarin Anticoagulation : Atrial fibrillation Warfarin Anticoagulation Disposition : Continuation of pre-hospital treatment Duration Warfarin Therapy, Jail Duration Warfarin Therapy, Jail : Yes Target INR : 2.5 - 3.5 Last INR Result : INR: 1.3 (High), Reference Range: (0.9 - 1.2), 08/20/2021 7:38 AM Notify Provider of Signs/Symptoms of : Significant bleeding, Clot Warfarin Dose/Frequency : 6 mg daily Sallie Solorzano RN-[employer] - 08/27/2021 10:31 EDT Education Topics: Anticoagulant Education Anticoagulant : Warfarin Compliance Issues *Q : Verbalizes understanding Take Warfarin as Instructed : Verbalizes understanding Monitoring Warfarin with INR Blood Draws : Verbalizes understanding Diet *Q : Verbalizes understanding Consistent Amount of Food with Vitamin K : Verbalizes understanding Continue Current Diet as Ordered : Verbalizes understanding Avoid Major Changes in Dietary Habits : Verbalizes understanding Adverse drug reactions/interactions *Q : Verbalizes understanding Diet/Medications can Affect INR Level : Verbalizes understanding Action/Interaction with Other Drugs : Verbalizes understanding Get Consult for Medication Changes : Verbalizes understanding Warfarin Side Effects (Increased Bleeding) : Verbalizes understanding Follow-up care/monitoring *Q : Verbalizes understanding Follow-up Care Details : Physician's office/clinic Follow-Up Care/Monitoring : Tod Sawyer to manage Sallie Solorzano RN-[employer] - 08/27/2021 10:34 EDT documented in this encounter Plan of Treatment Not on file documented as of this encounter Visit Diagnoses Not on filedocumented in this encounter Care Teams Hvac Instructor Relationship Specialty Start Date End Date Reji Castro MD [address] [place] [id number] PCP - General Adolescent Medicine 10/02/22 documented as of this encounter
--- OUTSIDE RECORDS SUMMARY | 2025-05-03 08:52 | XMS_ITS | Encounter Summary ---
Author Organization [employer] Address [address] [place] [address] Care Team Providers Care Hand Kiss Setter Name Role Phone Reji Castro MD Primary Care Provider [phone] Encounter Details Date Type Department Care Team (Late st Contact Info) Description 08/12/2021 Transcribed Document [facility] [place] Medicine [facility] [place] [address] ProviderDelvin MD [address] [place] [id number] Social History Tobacco Use Types Packs/Day Years Used Date Smoking Tobacco: Never Assessed Comments Unknown Sex and Gender Information Value Date Recorded Sex Assigned at Not on file Legal Sex Female 4:32 PM CDT Gender Identity Not on file Sexual Orientation Not on file documented as of this encounter Miscellaneous Notes * Cerner Conversion Note - Delvin Celestin MD - 08/12/2021 11:10 AM CDT Patient: IRINA TAMAYO Age: 56 years Sex: Female : 1965 Associated Diagnoses: None Author: Andrea Moraes, Resident Pharmacist Pharmacy Consult - Vancomycin HPI: 56 y/o F presenting to [facility] with history of COPD, atrial fibrillation, CKD unknown stage, DMII, chronic anemias, CAD, & mitral valve mechanical valve. Port in left chest resulting positive blood cultures at check up. Pharmacy consulted to dose vancomycin & ABX 2/2 indwelling catheter infection along with warfarin 2/2 atrial fibrillation. Consult: vancomycin Indication: catheter infection Consulting Provider: Dr. Jaimes Goal: 12-18 mcg/mL ID on Board: yes Indication: atrial fibrillation Consulting Provider: Dr. Jaimes Home Dose: warfarin 6 mg PO qHS INR Goal: 2-3 Bridge Therapy: none - will defer to MD Current Antimicrobials: vancomycin PTD - (08/11 - now) Drug Interactions: - MODERATE: warfarin + any of the following --> diltiazem, torsemide, spironolactone, pantoprazole, citalopram - may have POTENTIAL to increase side effects and/or bleeding risk of warfarin Allergies (5) Active Reaction anabolic steroids Congestive [...] 11 19:30) 18 (AUG 11 16:19) SBP L 87 (AUG 12 10:00) L 86 (AUG 11 19:30) 112 (AUG 11 16:19) DBP L 46 (AUG 12 10:00) L 46 (AUG 12 05:49) 70 (AUG 12 02:00) MAP 61 (AUG 12 05:49) 61 (AUG 12 05:49) 80 (AUG 12 02:00) SpO2 98 (AUG 12 05:49) L 93 (AUG 11 19:00) 98 (AUG 11 16:19) Labs (Last four charted values) WBC 6.7 [...] Current Warfarin Trend Date 08/11 08/12 08/13 INR 1.8 pending Dose NO DOSE [6 mg] Creatinine Clearance (Current Encounter/Past 24 Hours) Creatinine Level 2.40 mg/dL CA 08/12/2021 01:05 Bun/Creatinine 28.8 CA 08/12/2021 01:05 Est. CrCl: 35 mL/min Intake & Output Totals Last 24 Hours (7a-7a) Input Total: 250 mL Output Total: 0 mL Balance: 250 mL Cultures/Microbiology: 08/11 Blood x2: pending Vancomycin Level(s): 08/12 random level @0022 = 21.1 mcg/mL - (received vancomycin 1250 mg IV x1) 08/13 random level (in AM) = [ORDERED] - (scheduled to receive vancomycin 750 mg IV x1) A/P: 1.) Random level (~4 hrs after dose) early this AM (08/12) was slightly supratherapeutic; however, level drawn earlier than anticipated. - extra time allotted prior to given next dose today (08/12) so pt could hopefully eliminate some drug - based upon pt's age, wt, & unstable renal fxn - will give vancomycin 750 mg (8.7 mg/kg) IV x1 today (08/12) around noon & cont. pulse dosing 2.) Will check random level tomorrow (9/22) AM. Will optimize regimen based on result. 3.) Cultures pending. All meds adjusted appropriately based on renal function. 4.) Pt did NOT receive warfarin dose yesterday (08/11) when INR was noted as 1.8. INR pending today (08/12). 5.) D/w nurse (Ela): confirmation no warfarin given yesterday (08/12) - planned to give dose this evening (warfarin 6 mg PO daily) 6.) D/w Dr. Akanksha Cuevas: subtherapeutic INR noted; asked about bridge therapy - will defer to cardiology given they are on board; will follow recs 7.) Daily PT/INR ordered. Goal INR 2-3. 8.) Pharmacy will continue to follow & monitor. Please reach out with any questions. Thank you, Andrea Moraes, PharmD PGY1 Purse Framer Pager: [phone], Ext. [phone] Electronically signed by Lanny, [facility] Conversion Banquet Bartender Cerner at 03/09/2023 8:45 PM CDT documented in this encounter Plan of Treatment Not on file documented as of this encounter Visit Diagnoses Not on filedocumented in this encounter Care Teams Hand Kiss Setter Relationship Specialty Start Date End Date Reji Castro MD [address] [place] [id number] PCP - General Adolescent Medicine 10/02/22 documented as of this encounter
--- OUTSIDE RECORDS SUMMARY | 2025-05-03 08:52 | XMS_ITS | Encounter Summary ---
Author Organization [employer] Address [address] [place] [address] Care Team Providers Care Outdoor Adventure Instructor Name Role Phone Reji Castro MD Primary Care Provider [phone] Encounter Details Date Type Department Care Team (Late st Contact Info) Description 08/11/2021 Transcribed Document [facility] [place] Family Medicine [address] [place] [address] ProviderDelvin MD [address] [place] [address] Social History Tobacco Use Types Packs/Day Years Used Date Smoking Tobacco: Never Assessed Comments Unknown Sex and Gender Information Value Date Recorded Sex Assigned at Not on file Legal Sex Female 4:32 PM CDT Gender Identity Not on file Sexual Orientation Not on file documented as of this encounter Miscellaneous Notes * Cerner Conversion Note - Delvin ProviderMD - 08/11/2021 4:16 PM CDT [place] Suicide Severity Rating Scale (C-SSRS) Entered On: 08/11/2021 18:49 EDT Performed On: 08/11/2021 18:46 EDT by MARIPOSA JACQUES RN [place] Suicide Severity Rating Scale (C-SSRS) CSSRS Past Month Wish to be : No CSSRS Past Month Suicidal Thoughts : No CSSRS Lifetime Suicide Behavior : No Suicide Severity Rating Score : 0 Suicide Severity Rating : No Additional Care Required at this time MARIPOSA JACQUES RN - 08/11/2021 18:46 EDT documented in this encounter Plan of Treatment Not on file documented as of this encounter Visit Diagnoses Not on filedocumented in this encounter Care Teams Outdoor Adventure Instructor Relationship Specialty Start Date End Date Reji Castro MD [address] [place] [id number] PCP - General Adolescent Medicine 10/02/22 documented as of this encounter
--- OUTSIDE RECORDS SUMMARY | 2025-05-03 08:52 | XMS_ITS | Encounter Summary ---
Author Organization [employer] Address [address] [place] [address] Care Team Providers Care Door Trimmer Name Role Phone Reji Castro MD Primary Care Provider [phone] Encounter Details Date Type Department Care Team (Late st Contact Info) Description 08/24/2021 Transcribed Document [facility] [place] [address] [place] [address] ProviderDelvin MD [address] [place] [address] Social History Tobacco Use Types Packs/Day Years Used Date Smoking Tobacco: Never Assessed Comments Unknown Sex and Gender Information Value Date Recorded Sex Assigned at Not on file Legal Sex Female 4:32 PM CDT Gender Identity Not on file Sexual Orientation Not on file documented as of this encounter Miscellaneous Notes * Cerner Conversion Note - Delvin ProviderMD - 08/24/2021 5:00 AM CDT Chart Check - Review Order Profile Entered On: 08/24/2021 5:28 EDT Performed On: 08/24/2021 5:00 EDT by Usha Adler, RN Chart Check Powerplans Initiated/Discontinued as Appropriate : Yes All Active Orders Reviewed : Yes Usha Adler RN - 08/24/2021 5:28 EDT documented in this encounter Plan of Treatment Not on file documented as of this encounter Visit Diagnoses Not on filedocumented in this encounter Care Teams Door Trimmer Relationship Specialty Start Date End Date Reji Castro MD [address] [place] [id number] PCP - General Adolescent Medicine 10/02/22 documented as of this encounter
--- OUTSIDE RECORDS SUMMARY | 2025-05-03 08:52 | XMS_ITS | Encounter Summary ---
Author Organization [employer] Address [address] [place] [address] Care Team Providers Care Mattress Specialist Name Role Phone Reji Castro MD Primary Care Provider [phone] Encounter Details Date Type Department Care Team (Late st Contact Info) Description 08/27/[address] [facility] [place] Family Medicine [facility] [place] [address] ProviderDelvin MD [address] [place] [id number] Social History Tobacco Use Types Packs/Day Years Used Date Smoking Tobacco: Never Assessed Comments Unknown Sex and Gender Information Value Date Recorded Sex Assigned at Not on file Legal Sex Female 4:32 PM CDT Gender Identity Not on file Sexual Orientation Not on file documented as of this encounter Miscellaneous Notes * Cerner Conversion Note - Delvin Celestin MD - 08/27/2021 9:52 AM CDT Patient: IRINA TAMAYO Age: 56 years Sex: Female : 1965 Associated Diagnoses: None Author: ZEYAD NIELSEN, PharmD Pharmacy Consult - Warfarin HPI: 56 y/o F presenting to [facility] with history of COPD, atrial fibrillation, [...] hospitalist on service now Drug Interactions: none significantBMI BMI: 32.7 Weight: 86.39kg - Standing scale Height: 162.56cm (5ft ) - Stated Vitals Signs (last 24 hrs) Last Charted Minimum Maximum Temp 97.6 (AUG 27 04:53) 97.6 (AUG 27 04:53) 98 (AUG 05 20:34) Apical HR 74 (AUG 05 20:36) 74 (OCT 05 20:36) 74 (OCT 05 20:36) Mon HR 71 (AUG 27 04:53) 71 (AUG 27 04:53) 85 (AUG 05 11:00) Resp Rate 14 (AUG 27 04:53) 14 (AUG 05 20:34) 16 (AUG 05 23:00) SBP 103 (AUG 27 04:53) 98 (AUG 06 03:15) 115 (AUG 05 11:00) DBP 62 (AUG 27 04:53) L 49 (AUG 05 23:38) 74 (OCT 05 20:34) MAP 76 (AUG 27 04:53) 71 (OCT 05 23:38) 85 (AUG 05 20:34) SpO2 96 (AUG 27 04:53) L 91 (AUG 05 20:34) 96 (AUG 06 04:53) Labs (Last four charted values) WBC 5.3 (AUG 06) 4.5 (OCT 05) 5.4 (OCT 04) 5.6 (OCT 03) HB L 8.8 (OCT 06) L 8.4 (OCT 05) L 7.7 (OCT 04) L 7.8 (OCT 03) HCT L 29.6 (OCT 06) L 29.0 (OCT 05) L 26.5 (OCT 04) L 26.6 (OCT 03) Plt 176 (AUG 06) L 152 (OCT 05) 180 (OCT 04) 194 (OCT 03) Na 137 (OCT 06) 138 (AUG 05) 140 (AUG 04) 137 (AUG 03) K 4.0 (AUG 06) 4.0 (OCT 05) 4.1 (AUG 04) 3.9 (AUG 03) Cl L 97 (AUG 06) L 99 (AUG 05) L 99 (AUG [...] (AUG 03) Glu R H 140 (AUG 27) 103 (AUG 05) 91 (AUG 04) H 120 (AUG 24) Ca 9.5 (AUG 06) 9.4 (AUG 05) 9.7 (AUG 25) 9.4 (AUG 24) Lactic .93 (AUG 12) L .73 (AUG 11) PT H 26.0 (AUG 06) H 22.4 (AUG 05) H 19.3 (AUG 04) H 18.8 (AUG 24) INR H 2.6 (AUG 06) H 2.2 (AUG 05) H 1.9 (AUG 04) H 1.8 (AUG 24) PTT H 39.6 (AUG 11) AST 17 [...] heparin gtt heparin gtt Date 08/25 08/26 08/27 INR 1.9 2.2 2.6 Dose [10 mg] 10mg Bridge [heparin gtt] heoarin gtt Creatinine Clearance (Current Encounter/Past 24 Hours) Creatinine Level 1.40 mg/dL HI 08/27/2021 08:46 Bun/Creatinine 15.7 08/27/2021 05:09 Estimated Creatinine Clearance 37.82 mL/Min 08/27/2021 05:09 Intake & Output Totals Last 24 Hours (7a-7a) Input Total: 963.3 mL Output Total: 0 mL Balance: 963.3 mL A/P: 1.) INR now therapeutic. Start warfarin 8 mg po daily for now. Final maintenance dose probably 8-9 mg daily. 2). D/C heparin drip since INR > 2.5. D/W Dr. Acosta 3). Daily INR Will followZeyad PharmD, BCPS [phone] documented in this encounter Plan of Treatment Not on file documented as of this encounter Visit Diagnoses Not on filedocumented in this encounter Care Teams Mattress Specialist Relationship Specialty Start Date End Date Reji Castro MD [address] [place] [id number] PCP - General Adolescent Medicine 10/02/22 documented as of this encounter
--- OUTSIDE RECORDS SUMMARY | 2025-05-03 08:52 | XMS_ITS | Encounter Summary ---
Author Organization [employer] Address [address] [place] [address] Care Team Providers Care Eyewear Manufacturing Supervisor Name Role Phone Reji Tovar MD Primary Care Provider + [phone] Encounter Details Date Type Department Care Team (Late st Contact Info) Description 08/27/2021 Transcribed Document [facility] [place] [facility] [address] [place] [address] ProviderDelvin MD [address] [place], [place] [address] Social History Tobacco Use Types Packs/Day Years Used Date Smoking Tobacco: Never Assessed Comments Unknown Sex and Gender Information Value Date Recorded Sex Assigned at Not on file Legal Sex Female 4:32 PM CDT Gender Identity Not on file Sexual Orientation Not on file documented as of this encounter Miscellaneous Notes * Cerner Conversion Note - Delvin Celestin MD - 08/27/2021 1:31 PM CDT [facility] [place] [address] IRINA TAMAYO :1965 Visit Time:08/11/2021 Your Visit Summary Your Care Team Admitting Physician - VINCE BELLO MD Attending Physician - FAIZA YOUSSEF DO-GAUDENCIO Primary Care Physician - DREEK ROBISON DR Referring Physician - VINCE BELLO MD Your Diagnosis Bacteremia Acute kidney injury superimposed on chronic kidney disease, Acute kidney injury CHF with unknown LVEF Atrial fibrillation Diabetes mellitus type II assisted current use of anticoagulant At risk for central venous catheter associated infection Chronic kidney disease Medical screening exam These Are Your Goals To get rid of the infection! No qualifying data available. Discharge Vitals Temperature 36.6 ??C Heart Rate (Monitored) 77 Blood Pressure 122/57 What to do next Instructions From Your Care Team Please STOP taking the following medications: 1. Cefdinir --> do not finish any remaining capsules 2. Farxiga (dapagliflozin) 3. Potassium chloride 4. Toujeo SoloSTAR (insulin glargine) 5. Valsartan (Diovan) Follow-Up Appointments Follow Up with JOVANNY WalshREFZully SAWYER When 09/10/2021 09:30 AM EDT Comments Hospital follow up appointment has been made. Please arrive 15 minutes early to the appointment. If you need to reschedule, please contact Dr. Sawyer's office directly. Where: [address] [facility] [address] [place] [address]- Follow Up with LISA RICKETTS When 09/03/2021 10:45 AM EDT Comments Hospital follow up appointment has been made. Please arrive 15 minutes early to the appointment. If you need to reschedule, please contact [facility] directly. Where: [address] [facility] [address] [place] [address]- Business (1) Follow Up with NENA PEARSON [facility] When Within 1 week Comments The [facility] will contact you with appointment date and time. Where: [address] [facility] [address] [place] [address]- Follow Up with REJI TOVAR (REF)MD-[facility] When Within 5 to 7 days Comments The [facility] will contact you with appointment date and time. Where: [address] [place] [address]- Follow Up with JERRELL GONZALEZ When Within 2 weeks Comments The [facility] will contact you with appointment date and time. Where: Warfarin Instructions Indication for Warfarin Anticoagulation: Atrial fibrillation Indication for Warfarin Anticoagulation: Atrial fibrillation Warfarin Anticoagulation Disposition: Continuation of pre-hospital treatment Warfarin Anticoagulation Disposition: Continuation of pre-hospital treatment Duration Warfarin Therapy, Custodial: Yes Target INR: 2.5 - 3.5 Physician to Manage Warfarin: Jovanny Sawyer Notify Provider of Signs/Symptoms of: Significant bleeding, Clot Notify Provider of Signs/Symptoms of: Significant bleeding, Clot Warfarin Dose/Frequency: 6 mg daily Medications What How Much When Instructions Next Dose cefTRIAXone (cefTRIAXone 2 g injection) 2 Gram(s) IV Piggyback Interval Every 24 Hours through aspirin (aspirin 81 mg oral tablet, chewable) 1 Tablet(s) Oral Every Day bumetanide (bumetanide 2 mg oral tablet) 0.5 Tablet(s) Oral Two Times A Day Please note: Dose REDUCTION to 1mg (0.5 tablet) twice daily metoprolol (Toprol-XL 25 mg oral tablet, extended release) 1 Tablet(s) Oral Every Evening Please note: Dose REDUCTION to 25mg daily Pickup at [facility] spironolactone (spironolactone 25 mg oral tablet) 1 Tablet(s) Oral Every Day Please note: Dose REDUCTION to 1 tablet daily warfarin (Coumadin 4 mg oral tablet) 2 Tablet(s) Oral Every Day Please note: Dose INCREASE Pickup at [facility] acetaminophen-oxyCODONE (Percocet 10/ 325 oral tablet) 1 Tablet(s) Oral Every 8 Hours as needed for for pain ALPRAZolam (ALPRAZolam 0.5 mg oral tablet) 1 Tablet(s) Oral Three Times A Day as needed for anxiety bifidobacterium-lactobacillus (Probiotic Formula oral capsule) 1 Capsule(s) Oral Every Day takes with dinner citalopram (Celexa 40 mg oral tablet) 1 Tablet(s) Oral Every Day dexlansoprazole (Dexilant 60 mg oral delayed release capsule) 1 Capsule(s) Oral Every Day docusate-senna (docusate-senna 50 mg-8.6 mg oral tablet) 1 Tablet(s) Oral Two Times A Day famotidine (famotidine 20 mg oral tablet) 1 Tablet(s) Oral At Bedtime folic acid (folic acid 1 mg oral tablet) 1 Tablet(s) Oral Every Day levothyroxine (levothyroxine 25 mcg (0.025 mg) oral tablet) 1 Tablet(s) Oral Every Day olopatadine ophthalmic (olopatadine 0.2% ophthalmic solution) 1 Drop(s) Eyes Both Every Day Pharmacy Information [facility]: [address] [place] [address] [phone] Take your medications faithfully. Do NOT skip medication. Do NOT stop taking medications without the direction of a physician. Carry a list of your medications with you at all times, and take this medication list with you to your first follow up visit. Report any side effects. Avoid herbal remedies unless discussed with your physician. As part of your treatment plan, your physician may have prescribed a limited course of a controlled substance. This medication may be given to help people with moderate or severe pain or for other medical conditions, but there are risks involved with treatment. Common side effects may include nausea, constipation, drowsiness, sweating, itching, dry mouth, and rash. More serious side effects may include cognitive and motor impairment, like problems with thinking, concentrating, alertness, and movement (e.g. slowed reflexes), and driving and operating heavy machinery can be dangerous. It is important for you to talk to your physician if you have these side effects or questions. These controlled substances can produce physical dependence and be habit-forming if taken for an extended period of time, which means that the body has gotten used to them and may experience withdrawal symptoms if they are abruptly stopped. Withdrawal symptoms can include runny nose, sweating, goose bumps, diarrhea, abdominal cramping, rapid heartbeat, difficulty sleeping, and nervousness. Please dispose of unused and medications per your retail pharmacy guidance. Allergies Detrol (Congestive heart failure) Dye anabolic steroids (Congestive heart failure) buprenorphine codeine glipiZIDE (Congestive heart failure) metFORMIN (Congestive heart failure) penicillins propafenone theophylline Immunizations This Visit No Immunizations Found Education Materials Bacteremia, Adult Bacteremia is the presence of [...] these instructions at home: Medicines ??? Take lxel-sov-fisvuuu and prescription medicines only as told by [...] and water are not available, use hand soda fountain manager. ??? You should wash your hands: ? [...] care provider. ??? Practice good oral hygiene. [place] your teeth two times a day, and [...] provider. Document Revised: 03/29/2020 Document Reviewed: 03/29/2020 [employer] Patient Education ?? 2020 [employer]. Warfarin Coagulopathy Warfarin coagulopathy refers to bleeding [...] stopping any new medicines. Many prescription and qomk-rff-hlrraqi medicines can interfere with warfarin. This includes elxh-fzq-ckfitzf vitamins, dietary supplements, herbal medicines, and pain [...] that you work with a diet and livestock nutrition territory manager (dietitian). ??? Vitamin K makes warfarin less [...] have PT tests at least once every 4???6 weeks for the entire time you are taking warfarin. ??? Ask your health care provider what your target INR range is. Make sure you always know your target range. If your INR is not in your target range, your health care provider may adjust your dosage. Preventing bleeding and injury ??? Some common anqe-tgj-drskidl medicines and supplements may increase the risk [...] of beer, 5 oz. of wine, or 1?? oz. of hard liquor. ? If you [...] diet. ??? You start or stop any nwuy-aib-szdfekf medicine, prescription medicine, or dietary supplement. ??? [...] provider. Document Revised: 10/21/2018 Document Reviewed: 01/26/2018 Elsevier Patient Education ?? 2020 [employer] Inc. Vitamin K Foods and Warfarin Warfarin is [...] before making changes. ??? Work with a livestock nutrition territory manager (dietitian) to develop a meal plan that works best for you. What foods are high in vitamin K? Foods that are high in vitamin K contain more than 100 mcg (micrograms) per serving. These include: ??? Broccoli (cooked from fresh) ? cup (78 g) has 110 mcg. ??? [place] sprouts (cooked from fresh) ? cup (78 g) has 109 mcg. ??? Greens, beet (cooked from fresh) ? cup (72 g) has 350 mcg. ??? Greens, yanira (cooked from fresh) ? cup (66 g) has 263 mcg. ??? Greens, turnip (cooked from fresh) ? cup (72 g) has 265 mcg. ??? Green onions or scallions ? cup (50 g) has 105 mcg. ??? Kale (cooked from fresh) ? cup (68 g) has 536 mcg. ??? Parsley (raw) ??? 10 sprigs (10 g) has 164 mcg. ??? Spinach (cooked from fresh) ? cup (90 g) has 444 mcg. ??? Algerian chard (cooked from fresh) ? cup (88 g) has 287 mcg. What foods have a moderate amount of vitamin K? Foods that have a moderate amount of vitamin K contain 25???100 mcg per serving. These include: ??? Asparagus (cooked from fresh) ??? 4 osman (60 g) have 30 mcg. ??? Black-eyed peas (dried) ? cup (85 g) has 32 mcg. ??? Cabbage (cooked from fresh) ? cup (78 g) has 84 mcg. ??? Cabbage (raw) ? cup (35 g) has 26 mcg. ??? Kiwi fruit ??? 1 medium (69 g) has 27 mcg. ??? Lettuce (raw) ??? 1 cup (36 g) has 45 mcg. ??? Okra (cooked from fresh) ? cup (80 g) has 32 mcg. ??? Prunes (dried) ??? 5 prunes (47 g) have 25 mcg. ??? Watercress (raw) ??? 1 cup (34 g) has 85 mcg. What foods are low in vitamin K? Foods low in vitamin K contain less than 25 mcg per serving. These include: ??? Artichoke ??? 1 medium (128 g) has 18 mcg. ??? Avocado ??? 1 oz (21 g) has 6 mcg. ??? Blueberries ? cup (73 g) has 14 mcg. ??? Carrots (cooked from fresh) ? cup (78 g) has 11 mcg. ??? Cauliflower (raw) ? cup (54 g) has 8 mcg. ??? [place] with peel (raw) ? cup (52 g) has 9 mcg. ??? Grapes ? cup (76 g) has 12 mcg. ??? Dewy Rose ??? 1 medium (207 g) has 9 mcg. ??? Mixed nuts ??? 1 cup (142 g) has 17 mcg. ??? Pear ??? 1 medium (178 g) has 8 mcg. ??? Peas (cooked from fresh) ? cup (80 g) has 20 mcg. ??? Pickled cucumber ??? 1 spear (65 g) has 11 mcg. ??? Sauerkraut (canned) ? cup (118 g) has 16 mcg. ??? Soybeans (cooked from fresh) ? cup (86 g) has 16 mcg. ??? Tomato (raw) ??? 1 medium (123 g) has 10 mcg. ??? Tomato sauce (raw) ? cup (123 g) has 17 mcg. [...] provider. Document Revised: 08/27/2020 Document Reviewed: 08/27/2020 Elsevier Patient Education ?? 2020 [employer] Inc. Implanted Port Home Guide An implanted port [...] implanted port has two main parts: ??? [place]. The reservoir is the part where a [...] routine maintenance. Flushing may be recommended every 4???6 weeks. ??? If a constant infusion is [...] water are not available, use alcohol-based hand soda fountain manager. ? Change your dressing as told by [...] provider. Document Revised: 03/01/2020 Document Reviewed: 12/11/2017 [employer] Patient Education ?? 2020 [employer] Acute Kidney Injury, Adult Acute kidney injury [...] these instructions at home: Medicines ??? Take ldxe-quy-nipzwcj and prescription medicines only as told by [...] important. Where to find more information ??? [place] Association of Kidney Patients: www.aakp.org ??? National Kidney Foundation: www.kidney.org ??? [place] Kidney Fund: www.akfinc.org ??? [employer] [facility] [...] provider. Document Revised: 09/17/2020 Document Reviewed: 09/17/2020 [employer] Patient Education ?? 2020 [employer]. Chronic Kidney Disease, Adult Chronic kidney disease [...] these instructions at home: Medicines ??? Take lfdu-cnz-qhhbkvz and prescription medicines only as told by [...] provider. Document Revised: 10/21/2018 Document Reviewed: 12/13/2017 [employer] Patient Education ?? 2020 [employer] Implanted Port Home Guide An implanted port [...] implanted port has two main parts: ??? [place]. The reservoir is the part where a [...] routine maintenance. Flushing may be recommended every 4???6 weeks. ??? If a constant infusion is [...] water are not available, use alcohol-based hand soda fountain manager. ? Change your dressing as told by [...] provider. Document Revised: 03/01/2020 Document Reviewed: 12/11/2017 [employer] Patient Education ?? 2020 [employer] Atrial Fibrillation Atrial fibrillation is a type [...] signals of the heart. ??? An ambulatory fruit grower to record your heart's activity for a [...] provider. Document Revised: 05/01/2020 Document Reviewed: 05/01/2020 [employer] Patient Education ?? 2020 [employer] Aspirin and Your Heart Aspirin is [...] side effects. Some of these include: ??? documented in this encounter Plan of Treatment Not on file documented as of this encounter Visit Diagnoses Not on filedocumented in this encounter Care Teams Eyewear Manufacturing Supervisor Relationship Specialty Start Date End Date Reji Tovar MD [address] [place] [address] PCP - General Adolescent Medicine 10/02/22 documented as of this encounter
--- OUTSIDE RECORDS SUMMARY | 2025-05-03 08:52 | XMS_ITS | Encounter Summary ---
Author Organization [employer] Address [address] [place] [address] Care Team Providers Care Choir Member Name Role Phone Reji Castro MD Primary Care Provider [phone] Encounter Details Date Type Department Care Team (Late st Contact Info) Description 08/16/2021 Transcribed Document [facility] [place] [address] [place] [address] ProviderDelvin MD [facility] [place] [address] Social History Tobacco Use Types Packs/Day Years Used Date Smoking Tobacco: Never Assessed Comments Unknown Sex and Gender Information Value Date Recorded Sex Assigned at Not on file Legal Sex Female 4:32 PM CDT Gender Identity Not on file Sexual Orientation Not on file documented as of this encounter Miscellaneous Notes * Cerner Conversion Note - Delvin Celestin MD - 08/16/2021 10:47 AM CDT Patient: IRINA TAMAYO Age: 56 Years Sex: Female : 1965 Subjective Previous port site with minimal discomfort. Intake & Output Intake & Output Totals Last 24 Hours (7a-7a) Intake (4 Events) Continuous Infusions (68 mL) Medications (100 mL) Output (2 Events) Urine Voided (Volume) (1350 mL) Input Total: 168 mL Output Total: 1350 mL Balance: -1182 mL Vital Signs T: 36.4 ??C TMIN: 36.4 ??C TMAX: 36.8 ??C HR: 80(Monitored) RR: 14 BP: 113/57 SpO2: 97% HT: 162.56 cm WT: 86.36 kg BMI: 32.68 Physical Exam Incision healing nicely. No evidence of infection. No significant hematoma. VTE Risk Total Score VTE Prophylaxis - Surgical Aspirin 81 mg, Oral, Tab, Daily, Start 08/12/21 9:00:00 EDT (REJI GUERRA) Sequential Compression Device Start: 08/11/21 20:26:00 EDT, Bilateral, Length: Knee High, While patient is in bed, Continuous Order (REJI GUERRA) Assessment/Plan Infected Port-A-Cath???removed. Case discussed with Dr. Moore. Plan is for placement of a new Port-A-Cath next week. We will schedule for Wednesday. Coumadin on hold and heparin drip in place. 1. Bacteremia R78.81 2. Acute kidney injury superimposed on chronic kidney disease N17.9, Acute kidney injury N17.9 3. CHF with unknown LVEF I50.9 4. Atrial fibrillation I48.91 5. Diabetes mellitus type II E11.9 6. custodial current use of anticoagulant Z79.01 At risk for central venous catheter associated infection Z91.89 Chronic kidney disease N18.9 Medical screening exam [id number] Medications Inpatient acetaminophen, 650 mg= 2 Tab, Oral, Q6H, PRN albuterol 2.5 mg/3 mL (0.083%) inhalation solution, 3 mL, Nebulized Inhalation , RT_Q4H, PRN ALPRAZolam, 0.5 mg= 1 Tab, Oral, TID, PRN aspirin, 81 mg= 1 Tab, Oral, Daily ceFAZolin + Sodium Chloride 0.9% intravenous solution 50 mL CeleXA, 40 mg= 2 Tab, Oral, Daily [...] 25 mg= 1 Tab, Oral, Q6H, PRN docusate-senna 50 mg-8.6 mg oral tablet, [...] Toprol-XL, 25 mg= 1 Tab, Oral, QPM Home ALPRAZolam 0.5 mg oral tablet, 0.5 [...] subcutaneous solution, 80 Units, SubCutaneous, At Bedtime Routine Labs - Last 24 Hours AUG 16 02:19 137 106 H 23 / H 112 4.4 25 H 1.40 \ Anion Gap: 10 Calcium Level: 9.5 mg/dL Imaging Results (Last 24 Hours) No Radiology Results Found Problem List/Past Medical History Ongoing AIHA (autoimmune [...] (eg, for trigger finger)., Tibial Plateu Left. Allergies Detrol (Congestive heart failure) Dye anabolic steroids (Congestive heart failure) buprenorphine codeine glipiZIDE (Congestive heart failure) metFORMIN (Congestive heart failure) penicillins propafenone theophylline Electronically signed by [facility], [facility] Conversion Wet Cleaner Machine Cerner at 03/09/2023 8:52 PM CDT documented in this encounter Plan of Treatment Not on file documented as of this encounter Visit Diagnoses Not on filedocumented in this encounter Care Teams Choir Member Relationship Specialty Start Date End Date Reji Castro MD [address] [place] S[place] [phone] PCP - General Adolescent Medicine 10/02/22 documented as of this encounter
--- OUTSIDE RECORDS SUMMARY | 2025-05-03 08:52 | XMS_ITS | Encounter Summary ---
Author Organization [employer] Address [address] [place] [address] Care Team Providers Care Tack Driller Name Role Phone Reji Castro MD Primary Care Provider + [phone] Encounter Details Date Type Department Care Team (Late st Contact Info) Description 08/21/2021 Transcribed Document [facility] [place] Family Medicine [facility] [place] [address] ProviderDelvin MD [address] [place] [id number] Social History Tobacco Use Types Packs/Day Years [...] Female : 1965 Associated Diagnoses: None Author: JENNA BULL MD Basic Information Admit information: 56 year old [...] interval improvement in renal function cr 1.6mg/dl. , Today's Information: No acute distress. Denies CP, SOB, n/v. Edema improved since restarting diuretics . Review of Systems Constitutional: Fatigue, No fever, No chills. Respiratory: No shortness of breath, No cough. Gastrointestinal: Nausea, No vomiting, No diarrhea. Genitourinary: No dysuria, No hematuria. Neurologic: Alert and oriented X4. Health Status Allergies: Allergic Reactions (Selected) Severity [...] cefTRIAXone: 2 Gram, 100 mL/Hr, IV Piggyback, [id number] diphenhydrAMINE: 25 mg, Oral, Q6H, PRN: Itching [...] Oral, BID cefTRIAXone 2 Gram, IV Piggyback, [id number] citalopram 20 mg tab 40 mg 2 [...] 0.5 mL, IV Push, Q6H Problem list: All Problems History of obstructive sleep apnea / IMO [id number] / Confirmed Bioprosthetic mitral valve replacement / SNOMED CT 273385813 / Confirmed Chronic kidney disease / SNOMED CT 2535144694 / Confirmed COPD - Chronic obstructive pulmonary disease / SNOMED CT 863294298 / Confirmed HTN - Hypertension / SNOMED CT 1205993502 / Confirmed HLD - Hyperlipidemia / SNOMED CT 429008750 / Confirmed Amblyopia / SNOMED CT 5327952027 / Confirmed 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 / SNOMED CT 027063149 / Confirmed Myocardial infarction / SNOMED CT 85387182 / Confirmed Atrial fibrillation / SNOMED CT 62909574 / Confirmed GERD - Gastro-esophageal reflux disease / SNOMED CT 8345240937 / Confirmed Diverticulosis / SNOMED CT 2320570396 / Confirmed Hepatomegaly / SNOMED CT 335833994 / Confirmed Renal calculus / SNOMED CT 460041996 / Confirmed Ovarian cyst / SNOMED CT 427729931 / Confirmed Arthritis / SNOMED CT 3350398 / Confirmed Back pain / PNED [id number] / Confirmed Fibromyalgia / SNOMED CT 11956270 / Confirmed Restless legs syndrome / SNOMED CT 22554192 / Confirmed Diabetes mellitus type II / SNOMED CT 70681777 / Confirmed Thyroid disease / SNOMED CT 246138409 / Confirmed Edema / SNOMED CT 775354965 / Confirmed BLE neuropathy hands and feet / Confirmed frequent headache / Confirmed AIHA (autoimmune hemolytic anemia) / SNOMED CT 2146816055 / Confirmed Resolved: Bronchitis / SNOMED CT 83566154 Resolved: Bowel obstruction / SNOMED CT 623263859 Canceled: Atrial fibrillation / SNOMED CT 39746501 Canceled: Lazy eye / SNOMED CT 654020909 lazy eye blindness (left eye) Canceled: Heart failure / SNOMED CT 829840625 Canceled: Heart valve / SNOMED CT 686122232 Canceled: High blood pressure / SNOMED CT 04559146 Canceled: Hyperlipidemia / SNOMED CT 12937748 Canceled: Cardiac arrhythmia / SNOMED CT 9626099239 Canceled: COPD / SNOMED CT 86531977 Canceled: Diabetes mellitus / SNOMED CT 796887271 Canceled: Anemia, iron deficiency / SNOMED CT 980153678, Active Problems (25) AIHA (autoimmune hemolytic anemia) [...] Output Totals Last 24 Hours (7a-7a) Intake (13 Events) Continuous Infusions (144.5 mL) Medications (300 mL) Oral Intake (840 mL) Output (5 Events) Urine Voided (Volume) (2900 mL) Input Total: 1284.5 mL Output Total: 2900 mL Balance: -1615.5 mL , Weight (Daily) No Qualifying Routine Weight Events VS/Measurements Vital Signs/Vital Measures 08/21/2021 6:00 EDT Systolic Blood Pressure 101 mmHg Diastolic Blood Pressure 68 mmHg Mean Arterial Pressure (MAP)-BMDI 78 Temperature Source Oral Temperature Mode Fahrenheit Temperature, Fahrenheit 97.6 Deg F Clinical Temperature, C 36.4 Deg C Heart Rate Monitored 61 bpm Respiratory Rate 15 Breaths/Min Oxygen Saturation 95 % Oxygen Therapy Mode Room air 08/20/2021 23:30 EDT Systolic Blood Pressure 95 mmHg Diastolic Blood Pressure 65 mmHg Mean Arterial Pressure (MAP)-BMDI 74 Temperature, Fahrenheit 98 Deg F Clinical Temperature, C 36.7 Deg C Heart Rate Monitored 87 bpm Respiratory Rate 18 Breaths/Min Oxygen Saturation 92 % LOW 08/20/2021 20:27 EDT Heart Rate, Apical 70 bpm 08/20/2021 17:05 EDT Systolic Blood Pressure 105 mmHg Diastolic Blood Pressure 58 mmHg LOW Mean Arterial Pressure (MAP)-BMDI 82 Temperature Source Oral Temperature Mode Fahrenheit Temperature, Fahrenheit 98.1 Deg F Clinical Temperature, C 36.7 Deg C Heart Rate Monitored 84 bpm Respiratory Rate 16 Breaths/Min Oxygen Saturation 92 % LOW 08/20/2021 17:00 EDT Oxygen Therapy Mode Room air 08/20/2021 15:00 EDT Systolic Blood Pressure 96 mmHg Diastolic Blood Pressure 50 mmHg LOW Mean Arterial Pressure (MAP)-BMDI 63 Temperature Source Oral Temperature Mode Fahrenheit Temperature, Fahrenheit 98 Deg F Clinical Temperature, C 36.7 Deg C Heart Rate Monitored 80 bpm Respiratory Rate 18 Breaths/Min Oxygen Saturation 94 % Oxygen Therapy Mode Room air 08/20/2021 11:00 EDT Systolic Blood Pressure 127 mmHg Diastolic Blood Pressure 80 mmHg Mean Arterial Pressure (MAP)-BMDI 92 Temperature, Fahrenheit 98 Deg F Clinical Temperature, C 36.7 Deg C Heart Rate Monitored 89 bpm Respiratory Rate 18 Breaths/Min Oxygen Saturation 93 % LOW 08/20/2021 8:00 EDT Oxygen Therapy Mode Room air 08/20/2021 6:00 EDT Heart Rate Monitored 78 bpm Respiratory Rate 18 Breaths/Min Oxygen Saturation 95 % 08/20/2021 5:45 EDT Systolic Blood Pressure 98 mmHg Diastolic Blood Pressure 46 mmHg LOW Mean Arterial Pressure (MAP)-BMDI 59 Temperature Source Oral Temperature Mode Fahrenheit Temperature, Fahrenheit 97.8 Deg F Clinical Temperature, C 36.6 Deg C Heart Rate Monitored 78 bpm Respiratory Rate 18 Breaths/Min Oxygen Saturation 95 % Oxygen Therapy Mode Nasal cannula Oxygen Flow Rate 2 Liter/Min 08/20/2021 4:24 EDT Systolic Blood Pressure 102 mmHg Diastolic Blood Pressure 62 mmHg Mean Arterial Pressure (MAP)-BMDI 73 Temperature, Fahrenheit 97.6 Deg F Clinical Temperature, C 36.4 Deg C Heart Rate Monitored 79 bpm Respiratory Rate 16 Breaths/Min Oxygen Saturation 97 % 08/20/2021 4:00 EDT Temperature Source Oral Temperature Mode Fahrenheit Oxygen Therapy Mode Nasal cannula Oxygen Flow Rate 2 Liter/Min 08/20/2021 0:00 EDT Systolic Blood Pressure In Error mmHg (In Error) Diastolic Blood Pressure In Error mmHg (In Error) Mean Arterial Pressure (MAP)-BMDI In Error (In Error) Temperature Source In Error (In Error) Temperature Mode In Error (In Error) Temperature, Fahrenheit In Error Deg F (In Error) Clinical Temperature, C In Error Deg C (In Error) Heart Rate Monitored In Error bpm (In Error) Respiratory Rate In Error Breaths/Min (In Error) Oxygen Saturation In Error % (In Error) Oxygen Therapy Mode In Error (In Error) Oxygen Flow Rate In Error Liter/Min (In Error) , Vitals Signs (last 24 hrs) Last Charted [...] (AUG 20 17:05) 95 (AUG 21 06:00) , Measurements from flowsheet : Measurements 08/20/2021 5:00 EDT Height Source Stated Height Entry Format [place] Height/Length, ROMANIAN (ft) 5 ft Height/Length ROMANIAN 4 Inch CLINICALHEIGHT 162.56 cm Routine Weight Source Standing scale Routine Weight Entry Format [place] Routine Weight, Pounds 204 lb Routine Weight, Ounces 7 oz Routine Weight Calculation 92.93 kg Body Mass Index (BMI), Routine 35.17 kg/m2 Body Surface Area (BSA), Routine 1.98 m2 General: No acute distress. Eye: Extraocular movements [...] 188 (JUL 30) 210 (SEP 29) 207 (SEP ) 207 (AUG 18) Na 138 (JUL 30) 138 (AUG 20) 137 (AUG 19) L 134 (AUG 18) K 3.8 (JUL 30) 3.9 (AUG 20) 4.3 (AUG 19) 4.6 (AUG 18) Cl 103 (JUL 30) 103 (AUG 20) 105 (AUG 19) 105 (AUG 18) CO2 31 (JUL 30) 29 (AUG 20) 28 (AUG 19) 28 (AUG 18) BUN 19 (JUL 30) 18 (SEP ) 16 (AUG 19) 18 (AUG 18) Cr H 1.30 (JUL 30) H 1.40 (JUL 29) H 1.60 (AUG 19) H 1.40 (AUG 18) Glu R H 129 (JUL 30) H 125 (AUG 20) H 191 (AUG 19) H 137 (AUG 18) Ca 8.6 (JUL 30) 9.1 (AUG 20) 9.2 (AUG 19) 8.8 (AUG 18) Lactic .93 (AUG 12) L .73 (AUG 11) PT H 13.3 (JUL 30) H 13.5 (AUG 20) H 13.5 (AUG [...] (AUG 11) <0.015 (AUG 11) . AUG 21 01:38 138 103 19 / H 129 3.8 31 H 1.30 \ AUG 21 01:38 \ L 7.4 / 7.4 188 / L 25.2 \ Impression and Plan Dx and Plan [...] on this admit 2.4-2.5mg/dl now back to baseline Cont on Bumex 2 mg bid and spironolactone 50 mg BID. On Rocephin for MSSA bacteremia. Labs reviewed; electrolytes stable. Monitor GFR adjust medications. IV iron infusing. Pt reports she is scheduled to have 1 unit PRBC tomorrow documented in this encounter Plan of Treatment Not on file documented as of this encounter Visit Diagnoses Not on filedocumented in this encounter Care Teams Tack Driller Relationship Specialty Start Date End Date Reji Castro MD [address] [place] [id number] PCP - General Adolescent Medicine 10/02/22 documented as of this encounter
--- OUTSIDE RECORDS SUMMARY | 2025-05-03 08:52 | XMS_ITS | Encounter Summary ---
Author Organization [employer] Address [address] [place] [address] Care Team Providers Care Global Vp Creative + Content Marketing Name Role Phone Reji Castro MD Primary Care Provider [phone] Encounter Details Date Type Department Care Team (Late st Contact Info) Description 08/11/2021 Transcribed Document [facility] [place] Family Medicine [facility] [place] [address] ProviderDelvin MD [address] [place] [address] Social History Tobacco Use Types Packs/Day Years Used Date Smoking Tobacco: Never Assessed Comments Unknown Sex and Gender Information Value Date Recorded Sex Assigned at Not on file Legal Sex Female 4:32 PM CDT Gender Identity Not on file Sexual Orientation Not on file documented as of this encounter Miscellaneous Notes * Cerner Conversion Note - Delvin Celestin MD - 08/11/2021 7:42 PM CDT Patient: IRINA TAMAYO Age: 56 years Sex: Female : 1965 Associated Diagnoses: None Author: Noy Garrett, Resident Pharmacist S/O: 56 YOF with history of mechanical valve and port in left chest resulting positive blood cultures at check up. Pharmacy consulted to dose vanc for indwelling catheter infection Weight: 86 kg Est CrCl: 21 mL/min Consulting Physician: Fiona ID: -- Indication: cath infection Goal Trough: 12-18 mcg/mL Current abx: 1. Vanc PTD Vitals Signs (last 24 hrs) Last Charted [...] level in am then re-evaluate dosing. 3. All other meds evaluated and adjusted appropriately. Please reach out with any questions. Thank you, Noy Garrett, PharmD PGY-1 Resident Pager #[phone] Electronically signed by Lanny, [facility] Conversion Mirror Framer Cerner at 03/09/2023 8:57 PM CDT documented in this encounter Plan of Treatment Not on file documented as of this encounter Visit Diagnoses Not on filedocumented in this encounter Care Teams Global Vp Creative + Content Marketing Relationship Specialty Start Date End Date Reji Castro MD [address] [place] [id number] PCP - General Adolescent Medicine 10/02/22 documented as of this encounter
--- OUTSIDE RECORDS SUMMARY | 2025-05-03 08:52 | XMS_ITS | Encounter Summary ---
Author Organization [employer] Address [address] [place] [address] Care Team Providers Care Chassis Wirer Name Role Phone Reji Castro MD Primary Care Provider [phone] Encounter Details Date Type Department Care Team (Late st Contact Info) Description 08/27/2021 Transcribed Document [facility] [place] Family Medicine [address] [place] [address] ProviderDelvin MD [address] [place] [address] Social History Tobacco Use Types Packs/Day Years Used Date Smoking Tobacco: Never Assessed Comments Unknown Sex and Gender Information Value Date Recorded Sex Assigned at Not on file Legal Sex Female 4:32 PM CDT Gender Identity Not on file Sexual Orientation Not on file documented as of this encounter Miscellaneous Notes * Cerner Conversion Note - Delvin ProviderMD - 08/27/2021 2:00 AM CDT Medical Diagnostic Radiographer Details Entered On: 08/27/2021 3:29 EDT Performed On: 08/27/2021 2:00 EDT by Pamela Miguel, JEREMIAH Order Details Transport Mode Order Detail : Wheelchair Isolation Precautions Order Detail : Standard Precautions Order Detail : 0 IV Order Detail : 1 Oxygen Order Detail : 1 Nurse Collect Order Detail : 1 Lift/Transfer : Independent Central Line Order Detail : Yes Room Service : Appropriate Arterial Line : No Patient Needs Meds Crushed/Liquid : No Pamela Miguel, JEREMIAH - 08/27/2021 3:29 EDT documented in this encounter Plan of Treatment Not on file documented as of this encounter Visit Diagnoses Not on filedocumented in this encounter Care Teams Chassis Wirer Relationship Specialty Start Date End Date Reji Castro MD [address] [place] [id number] PCP - General Adolescent Medicine 10/02/22 documented as of this encounter
--- OUTSIDE RECORDS SUMMARY | 2025-05-03 08:53 | XMS_ITS | Encounter Summary ---
Author Organization [employer] Address [address] [place] [address] Care Team Providers Care Sheet Manufacturing Supervisor Name Role Phone Reji Castro MD Primary Care Provider [phone] Encounter Details Date Type Department Care Team (Late st Contact Info) Description 08/24/2021 Transcribed Document [facility] Radiology [address] [place] [address] Loren Solorzano MD [address] [place] [address] [address] [place] [id number] Social History Tobacco Use Types Packs/Day Years Used Date Smoking Tobacco: Never Assessed Comments Unknown Sex and Gender Information Value Date Recorded Sex Assigned at Not on file Legal Sex Female 4:32 PM CDT Gender Identity Not on file Sexual Orientation Not on file documented as of this encounter Miscellaneous Notes * Cerner Conversion Note - Loren Solorzano MD - 08/24/2021 11:20 AM EDT Patient: IRINA TAMAYO Age: 56 years Sex: Female : 1965 Associated Diagnoses: None Author: LOREN SOLORZANO MD-INT Subjective Patient feeling better today. Mild dyspnea on exertion. Out of chair. No epistaxis. On heparin drip. Review of Systems Constitutional: [...] cefTRIAXone: 2 Gram, 100 mL/Hr, IV Piggyback, [id number] diphenhydrAMINE: 25 mg, Oral, Q6H, PRN: Itching [...] 1 Cap, Oral, Daily, takes with dinner Angel[place] [employer] 300 units/mL subcutaneous solution: 80 Units, [...] Oral, BID cefTRIAXone 2 Gram, IV Piggyback, [id number] citalopram 20 mg tab 40 mg 2 [...] 25 mg 1 Tab, Oral, BID warfarin 3 mg [...] Bioprosthetic mitral valve replacement / SNOMED CT 120441564 / Confirmed Chronic kidney disease / SNOMED CT 1028303357 / Confirmed COPD - Chronic obstructive pulmonary disease / SNOMED CT 991898996 / Confirmed History of obstructive sleep apnea / IMO 56507490 / Confirmed HLD - Hyperlipidemia / SNOMED CT 351597076 / Confirmed HTN - Hypertension / SNOMED CT 4056773327 / Confirmed Canceled: Atrial fibrillation / SNOMED CT 53523829, Active Problems (25) AIHA (autoimmune hemolytic anemia) [...] Last Charted Minimum Maximum Temp 97.8 (AUG 24 06:36) 97.8 (AUG 24 06:36) 97.9 (AUG 23 11:00) Apical HR 86 (AUG 23 21:18) 86 (AUG 23 21:18) 86 (AUG 23 21:18) Mon HR 83 (AUG 24 06:36) 80 (AUG 23 23:15) 90 (AUG 23 18:09) Resp Rate 18 (AUG 24 06:36) 14 (AUG 23 11:00) 18 (AUG 23 18:09) SBP 108 (AUG 24 06:36) 94 (AUG 24 03:30) 115 (AUG 23 18:09) DBP L 59 (AUG 24 06:36) L 45 (AUG 24 03:30) 69 (AUG 23 18:09) MAP 83 (AUG 24 06:36) 57 (AUG 24 03:30) 83 (AUG 24 06:36) SpO2 L 90 (AUG 24 06:36) L 90 (AUG 24 06:36) 99 (AUG 23 23:15) General: Alert and oriented, No acute distress. [...] mood & affect. Review / Management AUG 24 07:00 137 L 99 H 23 / H 120 3.9 H 35 H 1.40 \ AUG 24 07:00 \ L 7.8 / 5.6 194 / L 26.6 \ Radiology Results (Last 48 hours) [id number] -- 08/11/2021 21:21 CR Chest 1 Vw Portable (08/22/2021 17:54) Result: PORTABLE CHEST HISTORY: Dyspnea, staph infection.COMPARISON: August 19, 2021.FINDINGS: There are surgical changes from mitral valve replacement withsevere cardiac enlargement, similar to prior exam. The right chest sandra stable in position. The mediastinum is unremarkable. The lungs areclear. There is no pneumothorax. IMPRESSION: No significant interval change.Images reviewed, interpreted, and dictated by Dr. Erik Land.Transcribed by Serena Corona PA-C.I have personally viewed, interpreted and dictated the examination. Ihave read and agree with the above final transcribed report. Results review: Labs (Last four charted values) WBC 5.6 (AUG 24) 6.1 (AUG 23) 7.0 (AUG 22) 7.4 (JUL 30) HB L 7.8 (AUG 24) L 7.6 (AUG 23) L 7.5 (AUG 22) L 7.4 (JUL 30) HCT L 26.6 (AUG 24) L 26.0 (AUG 23) L 25.6 (AUG 22) L 25.2 (SEP 30) Plt 194 (AUG 24) 181 (AUG 23) 181 (AUG 22) 188 (JUL 30) Na 137 (AUG 24) 139 (AUG 23) 138 (AUG 22) 138 (JUL 30) K 3.9 (AUG 24) 3.8 (AUG 23) 3.7 (AUG 22) 3.8 (SEP 30) Cl L 99 (AUG 24) L 101 (AUG 23) 102 (AUG 22) 103 (SEP 30) CO2 H 35 (AUG 24) H 34 (AUG 23) H 33 (AUG 22) 31 (AUG 21) BUN H 23 (AUG 24) 19 (AUG 23) 19 (AUG 22) 19 (AUG 21) Cr H 1.40 (AUG 24) H 1.40 (AUG 23) H 1.40 (AUG 22) H 1.30 (AUG 21) Glu R H 120 (AUG 24) H 118 (AUG 23) H 137 (AUG 22) H 129 (AUG 21) Ca 9.4 (AUG 24) 9.1 (AUG 23) 8.9 (AUG 22) 8.6 (AUG 21) Lactic .93 (AUG 12) L .73 (AUG 11) PT H 18.8 (AUG 24) H 18.4 (AUG 23) H 14.4 (AUG 22) H 13.3 (AUG 21) INR H 1.8 (AUG 24) H 1.8 (AUG 23) H 1.4 (AUG 22) H 1.3 (AUG 21) PTT H 39.6 (AUG 11) AST 17 [...] from Previous Midnight to Current New Medications: spironolactone 25 mg, Oral, Tab, BID, Routine, Start 08/23/21 21:00:00 EDT, 08/23/21 12:42:00 EDT MAURA CARROLL MD Discontinued Medications: spironolactone 50 mg, Oral, Tab, BID, Routine, Start 08/20/21 21:00:00 EDT, 08/20/21 16:52:00 EDT MAURA CARROLL MD Impression and Plan # MSSA bacteremia cultures [...] medications Started on p.o. Bumex per nephrology Aldactone decreased to 25 mg p.o. twice daily. #Autoimmune hemolytic anemia Patient has been followed by hematology/oncology Monitor Hgb, transfuse as needed if hemoglobin less than 7.0 g/dL. No active bleed Iron supplementation, folic acid Status post multiple blood transfusions counted more than 180 S/p IV iron infusion Her daughter pushing for blood transfused even hemoglobin more than 7.0 g/dL. And her H&H is stable and no signs of active bleed. ELLEN globin 7.2------> 7.8 g/dL #Chronic heart failure, A. fib, mechanical valve EF 55% INR subtherapeutic, 1.8?bridge with Heparin; goal INR 2.5-3.5 Aspirin, metoprolol Currently rate controlled Cardiology evaluated, signed off 08/14 bumex resumed. Continue hold spironolactone, valsartan due to borderline hypotension, TRISTAN #Diabetes Hold home meds SSI #Depression Celexa #Pain [place] 10 mg every 6 hours as needed CODE STATUS. Full code Dispo: Given patient with history of multiple blood transfusion we will keep patient in the hospital on heparin drip and Coumadin till INR therapeutic need IV abx, at least until 09/08. Discussed with case management director. and pharmcy Time spent 25 minutes documented in this encounter Plan of Treatment Not on file documented as of this encounter Visit Diagnoses Not on filedocumented in this encounter Care Teams Sheet Manufacturing Supervisor Relationship Specialty Start Date End Date Reji Castro MD [address] [place] [id number] PCP - General Adolescent Medicine 10/02/22 documented as of this encounter
--- OUTSIDE RECORDS SUMMARY | 2025-05-03 08:53 | XMS_ITS | Encounter Summary ---
Author Organization [employer] Address [address] [place] [address] Care Team Providers Care Senior Property Accountant Name Role Phone Reji Castro MD Primary Care Provider [phone] Encounter Details Date Type Department Care Team (Late st Contact Info) Description 08/13/2021 Transcribed Document [facility] [place] [address] [place] [address] ProviderDelvin MD [address] [place] [address] Social History Tobacco Use Types Packs/Day Years Used Date Smoking Tobacco: Never Assessed Comments Unknown Sex and Gender Information Value Date Recorded Sex Assigned at Not on file Legal Sex Female 4:32 PM CDT Gender Identity Not on file Sexual Orientation Not on file documented as of this encounter Miscellaneous Notes * Marisa Conversion Note - Delvin ProviderMD - 08/13/2021 3:06 PM CDT Spiritual Care Short Form Entered On: 08/13/2021 16:16 EDT Performed On: 08/13/2021 15:06 EDT by FAIZA ARIZA General Information, Spiritual Care Intervention/Comment/Summary Points : PreSurgery visit; [facility] a significant resource for Ms. Costa; She expressed gratitude for visit FAIZA ARIZA - 08/13/2021 16:15 EDT documented in this encounter Plan of Treatment Not on file documented as of this encounter Visit Diagnoses Not on filedocumented in this encounter Care Teams Senior Property Accountant Relationship Specialty Start Date End Date Reji Castro MD [address] [place] [id number] PCP - General Adolescent Medicine 10/02/22 documented as of this encounter
--- OUTSIDE RECORDS SUMMARY | 2025-05-03 08:53 | XMS_ITS | Encounter Summary ---
Author Organization [employer] Address [address] [place] [address] Care Team Providers Care Adult Education Professional Name Role Phone Reji Castro MD Primary Care Provider [phone] Encounter Details Date Type Department Care Team (Late st Contact Info) Description 08/23/2021 Transcribed Document [facility] [place] [address] [place] [address] ProviderDelvin MD [address] [place] [address] Social History Tobacco Use Types Packs/Day Years Used Date Smoking Tobacco: Never Assessed Comments Unknown Sex and Gender Information Value Date Recorded Sex Assigned at Not on file Legal Sex Female 4:32 PM CDT Gender Identity Not on file Sexual Orientation Not on file documented as of this encounter Miscellaneous Notes * Cerner Conversion Note - Delvin Celestin MD - 08/23/2021 5:00 AM CDT Chart Check - Review Order Profile Entered On: 08/23/2021 5:20 EDT Performed On: 08/23/2021 5:00 EDT by Cecilia Lai, Data Security Consultant-Student Nurse Chart Check Powerplans Initiated/Discontinued as Appropriate : Yes All Active Orders Reviewed : Yes Cecilia Lai Data Security Consultant-Student Nurse - 08/23/2021 5:19 EDT documented in this encounter Plan of Treatment Not on file documented as of this encounter Visit Diagnoses Not on filedocumented in this encounter Care Teams Adult Education Professional Relationship Specialty Start Date End Date Reji Castro MD [address] [place] [address] PCP - General Adolescent Medicine 10/02/22 documented as of this encounter
--- OUTSIDE RECORDS SUMMARY | 2025-05-03 08:53 | XMS_ITS | Encounter Summary ---
Author Organization [email or web address] Address [address] [place] [address] Care Team Providers Care It Coordinator Name Role Phone Reji Castro MD Primary Care Provider [phone] Encounter Details Date Type Department Care Team (Late st Contact Info) Description 08/17/2021 Transcribed Document [facility] [place] [address] [place] [address] ProviderDelvin MD [address] [place] [address] Social History Tobacco Use Types Packs/Day Years Used Date Smoking Tobacco: Never Assessed Comments Unknown Sex and Gender Information Value Date Recorded Sex Assigned at Not on file Legal Sex Female 4:32 PM CDT Gender Identity Not on file Sexual Orientation Not on file documented as of this encounter Miscellaneous Notes * Cerner Conversion Note - Delvin ProviderMD - 08/17/2021 5:00 PM CDT Chart Check - Review Order Profile Entered On: 08/17/2021 15:30 EDT Performed On: 08/17/2021 17:00 EDT by Vivienne Crow Chart Check Powerplans Initiated/Discontinued as Appropriate : Yes All Active Orders Reviewed : Yes Vivienne Crow - 08/17/2021 15:30 EDT documented in this encounter Plan of Treatment Not on file documented as of this encounter Visit Diagnoses Not on filedocumented in this encounter Care Teams It Coordinator Relationship Specialty Start Date End Date Reji Castro MD [address] [place] [id number] PCP - General Adolescent Medicine 10/02/22 documented as of this encounter
--- OUTSIDE RECORDS SUMMARY | 2025-05-03 08:53 | XMS_ITS | Encounter Summary ---
Author Organization [employer] Address [address] [place] [address] Care Team Providers Care Dental Technician Apprentice Name Role Phone Reji Castro MD Primary Care Provider [phone] Encounter Details Date Type Department Care Team (Late st Contact Info) Description 08/13/2021 Transcribed Document [facility] [place] [facility] [place], [place] [id number] ProviderDelvin MD [address] [place] [address] Social History Tobacco Use Types Packs/Day Years Used Date Smoking Tobacco: Never Assessed Comments Unknown Sex and Gender Information Value Date Recorded Sex Assigned at Not on file Legal Sex Female 4:32 PM CDT Gender Identity Not on file Sexual Orientation Not on file documented as of this encounter Miscellaneous Notes * Cerner Conversion Note - Delvin Celestin MD - 08/13/2021 10:20 AM CDT Consult Phone Call Documentation Entered On: 08/13/2021 10:40 EDT Performed On: 08/13/2021 10:20 EDT by Reina Tian, JUDGE Phone Call for Consults Consult Phone Call/Page Attempt : Other: BEATRIS Edward was on floor and was notified by Celina Wilder Rn about consult Consult Reason : paula cath inf., needing removal. Physician Requesting Consult : FAIZA YOUSSEF DO Physician Requested for Consult : NENA PEARSON MD-[facility] Physician Covering for Consult : SHEBA CARTY PA Date and Time Call Returned : 08/14/2021 10:39 EDT Reina Tian, JUDGE - 08/13/2021 10:37 EDT Electronically signed by Lanny, [facility] Conversion Wet End Helper Cerner at 03/09/2023 8:38 PM CDT documented in this encounter Plan of Treatment Not on file documented as of this encounter Visit Diagnoses Not on filedocumented in this encounter Care Teams Dental Technician Apprentice Relationship Specialty Start Date End Date Reji Castro MD [address] [place] [id number] PCP - General Adolescent Medicine 10/02/22 documented as of this encounter
--- OUTSIDE RECORDS SUMMARY | 2025-05-03 08:53 | XMS_ITS | Encounter Summary ---
Author Organization [employer] Address [address] [place] [address] Care Team Providers Care Learning Design Specialist Name Role Phone Reji Castro MD Primary Care Provider [phone] Encounter Details Date Type Department Care Team (Late st Contact Info) Description 08/18/2021 Transcribed Document [facility] [place] [facility] [place] [address] ProviderDelvin MD [facility] [place] [address] Social History Tobacco Use Types Packs/Day Years Used Date Smoking Tobacco: Never Assessed Comments Unknown Sex and Gender Information Value Date Recorded Sex Assigned at Not on file Legal Sex Female 4:32 PM CDT Gender Identity Not on file Sexual Orientation Not on file documented as of this encounter Miscellaneous Notes * Cerner Conversion Note - Delvin Celestin MD - 08/18/2021 8:12 PM CDT Patient: IRINA TAMAYO Age: 56 [...] her port could not be accessed. Her rig mechanic aspirated fluid from the port that was evidently purulent. I have not yet been able to track down that culture. After the aspiration she developed fever to 103, severe CHEUNG, myalgias and arthralgias. She was admitted to [facility]. She was in the hospital for 10 [...] antibiotics. On 08/08 she presented to a [facility] after she developed severe CHEUNG and myalgias w/o prominent fever. She was subsequently contacted and told to report to [facility] because she had + blood cutures concerning for an infected portacath +/- PVE. 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 Review of Systems ROS reviewed as documented in chart Physical Examination VS/Measurements Vitals Signs (last 24 hrs) Last Charted Minimum Maximum Temp 98.5 (AUG 18 18:17) 98.5 (AUG 18 18:17) 98.2 (AUG 17 22:27) Mon HR 87 (AUG 18 18:17) 63 (AUG 18 06:29) 87 (AUG 18 15:27) Resp Rate 20 (AUG 18 18:17) 16 (AUG 17 22:27) 20 (AUG 18 18:17) SBP 120 (AUG 18 18:17) 101 (AUG 17 22:27) 120 (AUG 18 18:17) DBP L 58 (AUG 18 18:17) L 53 (AUG 18 06:29) 61 (AUG 17 22:27) MAP 87 (AUG 18 18:17) 74 (AUG 18 02:02) 87 (AUG 18 18:17) SpO2 L 92 (AUG 18 18:17) L 90 (AUG 18 02:02) 95 (AUG 18 06:29) General: Alert and oriented, No acute distress. [...] tenderness, No swelling, No deformity. Integumentary: Warm, [place]. Neurologic: Alert, Oriented, No focal deficits. Psychiatric: Cooperative, Appropriate mood & affect. Review / Management Results review: Labs (Last four charted values) WBC 7.0 (AUG 18) 6.4 (AUG 17) 7.1 (AUG 15) 6.7 (SEP ) HB L 7.7 (AUG 18) L 7.5 (AUG 17) L 7.5 (AUG 16) L 7.9 (AUG 15) HCT L 26.2 (AUG 18) L 25.4 (AUG 17) L 25.9 (JUL 25) L 26.7 (JUL 24) Plt 207 (AUG 18) 195 (SEP 26) 197 (JUL 24) 210 (JUL 23) Na L 134 (AUG 18) L 135 (AUG 17) 137 (JUL 25) 137 (JUL 24) K 4.6 (AUG 18) 4.4 (SEP ) 4.4 (SEP 25) 4.4 (SEP 24) Cl 105 (AUG 18) 104 (AUG 17) 106 (AUG 16) 104 (JUL 24) CO2 28 (AUG 18) 27 (AUG 17) 25 (AUG 16) 27 (AUG 15) BUN 18 (AUG 18) 18 (AUG 17) [...] H 1.8 (AUG 15) PTT H 39.6 (AUG 11) AST 17 [...] continue cefazolin Home on rocephin 2g daily after portacath placed 08/19 -- new portacath placement 08/19 -- continue antibiotics and IV heparin via peripheral IV until new portacath can be placed 08/19 -- Since 08/11 blood cultures and cath tip culture remain negative I recommend parenteral antibiotics to 09/08 to complete 4 weeks therapy. -- Defer to hospitalist re: resuming oral anticoagulation after surgery UR: rocephin 2g daily to 09/08; weekly cbc and cmp; routine care of paula cath Discussed at length with patient documented in this encounter Plan of Treatment Not on file documented as of this encounter Visit Diagnoses Not on filedocumented in this encounter Care Teams Learning Design Specialist Relationship Specialty Start Date End Date Reji Castro MD [address] [place] [id number] PCP - General Adolescent Medicine 10/02/22 documented as of this encounter
--- OUTSIDE RECORDS SUMMARY | 2025-05-03 08:53 | XMS_ITS | Encounter Summary ---
Author Organization [employer] Address [address] [place] [address] Care Team Providers Care Recooperer Name Role Phone Reji Castro MD Primary Care Provider [phone] Encounter Details Date Type Department Care Team (Late st Contact Info) Description 08/18/2021 Transcribed Document [facility] Radiology [address] [place] [address] Loren Solorzano MD [address] [place] [address] [address] [id number] Social History Tobacco Use Types Packs/Day Years Used Date Smoking Tobacco: Never Assessed Comments Unknown Sex and Gender Information Value Date Recorded Sex Assigned at Not on file Legal Sex Female 4:32 PM CDT Gender Identity Not on file Sexual Orientation Not on file documented as of this encounter Miscellaneous Notes * Cerner Conversion Note - Loren Solorzano MD - 08/18/2021 12:21 PM EDT Patient: IRINA TAMAYO Age: 56 years Sex: Female : 1965 Associated Diagnoses: None Author: LOREN SOLORZANO MD-INT Subjective Patient feeling better today. Mild both hands swollen Review of Systems Constitutional: No fever, No [...] PRN: Anxiety CeleXA: 40 mg, Oral, Daily Dextrose 50% [...] 20 mL, 125 mL/Hr, IV Piggyback, Daily Lactated Ringers Injection intravenous solution 1,000 mL: [...] NaCl 0.45% Premix Diluent 250 mL: Titrate, IntraVENous, Stop: 08/18/21 23:59:00 EDT hydrALAZINE: 10 mg, IV Push, Q4H, PRN: [...] Tab, 0 Refill(s), Medications (35) Active Scheduled: (13) aspirin 81 mg chew tab 81 mg [...] mg 20 mL, IV Piggyback, Daily Continuous: (2) heparin/NaCl 0.45% 25,000 Units + Premix Diluent NaCl 0.45% 250 mL 250 mL, IntraVENous lactated ringers 1,000 mL 1,000 mL, IntraVENous, 20 mL/Hr PRN: (20) acetaminophen 325 mg tab 650 [...] Bioprosthetic mitral valve replacement / SNOMED CT 755457641 / Confirmed Chronic kidney disease / SNOMED CT 7450582436 / Confirmed COPD - Chronic obstructive pulmonary disease / SNOMED CT 306377482 / Confirmed History of obstructive sleep apnea / IMO [id number] / Confirmed HLD - Hyperlipidemia / SNOMED CT 441486305 / Confirmed HTN - Hypertension / SNOMED CT 2456097587 / Confirmed Canceled: Atrial fibrillation / SNOMED CT 12932580, Active Problems (25) AIHA (autoimmune hemolytic anemia) [...] 24 hrs) Last Charted Minimum Maximum Temp 98.1 (AUG 18:) 97.8 (AUG 17 18:12) 98.2 (AUG 17:) Apical HR 75 (AUG 17 20:10) 75 [place] [place] 75 [place] [place]:10) Mon HR 63 (AUG 18 06:) 63 (AUG 18 06:) 84 (AUG 17 18:12) Resp Rate 18 (AUG 18:) 16 (AUG 17:) 18 (AUG 18 06:29) SBP 105 (AUG 18 06:) 101 (AUG 17 22:) 107 ([facility] [place]:02) DBP L 53 (AUG 18:) L 45 (AUG 17 18:12) 61 (AUG 17:) MAP 77 (AUG 18 06:29) 70 ([facility] [place]:12) 78 ([facility] [place]:27) SpO2 95 (AUG 18 06:29) L 90 (AUG 18 02:02) 95 (AUG [...] mood & affect. Review / Management AUG 18 06:56 L 134 105 18 / H 137 4.6 28 H 1.40 \ AUG 18 06:56 \ L 7.7 / 7.0 207 / L 26.2 \ No Radiology Results Found Results review: [...] 24) Plt 207 (AUG 18) 195 (SEP ) 197 (JUL 24) 210 (AUG 14) Na L 134 (AUG 18) L 135 (AUG 17) 137 (AUG 16) 137 (JUL 24) K 4.6 (AUG 18) 4.4 (SEP ) 4.4 (SEP 25) 4.4 (SEP 24) Cl 105 (AUG 18) 104 (AUG 17) 106 (AUG 16) 104 (JUL 24) CO2 28 (AUG 18) 27 (SEP ) 25 (SEP 25) 27 (SEP 24) BUN 18 (AUG 18) 18 (AUG 17) H 23 (JUL 25) H 28 (SEP 24) Cr H 1.40 (AUG 18) H 1.20 (AUG 17) H 1.40 (JUL 25) H 1.80 (JUL 24) Glu R H 137 (AUG 18) H [...] from Previous Midnight to Current New Medications: diphenhydrAMINE 50 mg, IV Push, Inj, On-CALL, PRN for Anaphylaxis, Start 08/17/21 13:07:00 EDT SIERRA MONTGOMERY MD-NEP EPINEPHrine 1 mg, IntraMuscular, Inj, On-CALL, PRN for Anaphylaxis, Start 08/17/21 13:07:00 EDT SIERRA MONTGOMERY MD-NEP sodium ferric gluconate complex + Sodium Chloride 0.9% intravenous solution 230 mL (Ferrlecit + Sodium Chloride 0.9% intravenous solution 230 mL) 250 mg 20 mL, IV Piggyback, Inj, Daily, Start 08/17/21 13:06:00 EDT, Stop 08/21/21 13:00:00 EDT, 125 mL/Hr, Infuse Over: 2 Hour(s) SIERRA MONTGOMERY MD-NEP Discontinued Medications: DAPTOmycin + Sodium Chloride 0.9% intravenous solution 50 mL 700 mg, IV Piggyback, Inj, [id number], infuse over 30 Minute(s), Routine, Start 08/14/21 21:00:00 EDT, 128 mL/Hr, Indication: Endocarditis LISA RICKETTS MD-INF ferrous gluconate 324 mg, Oral, Tab, Daily, Start 08/12/21 9:00:00 EDT SIERRA MONTGOMERY MD-CHRISTINA Impression and Plan # MSSA bacteremia cultures positive from OSH Patient has mitral valve replacement as well as multiple sites of metal in her body?CHUCHO neg for endocarditis ID following: Cefazolin, Daptomycin?will need IV antibiotics until at least 09/08 Received 2 dose vancomycin Port removed 08/14. Catheter tip cultures pending Repeat blood cx NGTD NPO AMN Plan for Port-A-Cath placement in AM . Continue hold Coumadin and continue heparin drip. [...] Hold home meds SSI #Depression Celexa #Pain Sheldon 10 mg every 6 hours as needed [...] on filedocumented in this encounter Care Teams Recooperer Relationship Specialty Start Date End Date Reji Castro MD [address] [place] [id number] PCP - General Adolescent Medicine 10/02/22 documented as of this encounter
--- OUTSIDE RECORDS SUMMARY | 2025-05-03 08:53 | XMS_ITS | Encounter Summary ---
Author Organization [email or web address] Address [address] [place] [address] Care Team Providers Care Conveyor Monitor Name Role Phone Reji Castro MD Primary Care Provider [phone] Encounter Details Date Type Department Care Team (Late st Contact Info) Description 08/13/2021 Transcribed Document [facility] [place] [address] [place] [address] ProviderDelvin MD [address] [place] [address] Social History Tobacco Use Types Packs/Day Years Used Date Smoking Tobacco: Never Assessed Comments Unknown Sex and Gender Information Value Date Recorded Sex Assigned at Not on file Legal Sex Female 4:32 PM CDT Gender Identity Not on file Sexual Orientation Not on file documented as of this encounter Miscellaneous Notes * Cerner Conversion Note - Delvin Celestin MD - 08/13/2021 6:34 AM CDT Patient: IRINA TAMAYO Age: 56 years Sex: Female : 1965 Associated Diagnoses: None Author: CHELI BEASLEY MD-CAR Basic Information Primary Public Relations Analyst: Dr. Delmar Geronimo Paint Supervisor: MD Nestor Subjective NAD Health Status Current [...] mL 700 mg 14 mL, IV Piggyback, [id number] DAPTOmycin + NaCl 0.9% 50 mL 700 mg 14 mL, IV Piggyback, [id number] famotidine 20 mg tab 20 mg 1 [...] tab 25 mcg 1 Tab, Oral, Daily NaCl 0.9% 500 mL, IV Piggyback, 1-Time pantoprazole EC 40 mg tab 40 mg 1 Tab, Oral, Daily senna/docusate 8.6/50 mg tab 1 Tab, Oral, BID warfarin 3 mg tab 6 mg 2 Tab, Oral, Daily Continuous: (1) heparin/NaCl 0.45% 25,000 Units + Premix Diluent NaCl 0.45% 250 mL 250 mL, IntraVENous PRN: (16) acetaminophen 325 mg tab 650 mg 2 [...] inj 4 mg 2 mL, IV Push, Q6H traMADol 50 mg tab 50 mg 1 Tab, Oral, Q6H Problem list: Active Problems (37) AIHA (autoimmune hemolytic anemia) Amblyopia Anemia, iron deficiency Arthritis Atrial fibrillation Atrial fibrillation Back pain Bioprosthetic mitral valve replacement Bowel obstruction Bronchitis Cardiac arrhythmia Cardiomyopathy Chronic kidney disease COPD COPD - Chronic obstructive pulmonary disease Diabetes mellitus Diabetes mellitus type II Diverticulosis Edema Fibromyalgia frequent headache GERD - Gastro-esophageal reflux disease Heart failure Heart valve Hepatomegaly High blood pressure History of obstructive sleep apnea HLD - Hyperlipidemia HTN - Hypertension Hyperlipidemia Lazy eye Myocardial infarction neuropathy hands and feet Ovarian cyst Renal calculus Restless legs syndrome Thyroid disease Objective Intake and Output 24 hour intake: Total 4,080 ml 24 hour output: Total 2,500 ml VS/Measurements Vitals Signs (last 24 hrs) Last Charted Minimum Maximum Temp 97.8 (AUG 13 03:00) 97.8 (AUG 13:00) 98 (AUG 12 23:00) Mon HR 77 (AUG 13 03:00) 50 (AUG 12 15:00) 82 (AUG 12 23:00) Resp Rate 18 (AUG 13:00) 18 (AUG 12 14:30) 20 (AUG 12 11:00) SBP 103 (AUG 13 03:00) L 86 (AUG 12 15:00) 103 (AUG 13 03:00) DBP 60 (AUG 13:00) L 46 (AUG 12 10:00) 60 (AUG 13 03:00) MAP 73 (AUG 13 03:00) 55 (AUG 12 15:00) 77 (AUG 12 18:30) SpO2 95 (AUG 13 03:00) 94 (AUG 12 11:00) 98 (AUG 12 23:00) General: Alert and oriented, No acute distress. [...] of motion, Normal strength. Integumentary: Warm, Dry, [place]. Neurologic: Alert, Oriented. Psychiatric: Cooperative, Appropriate mood & affect. Results Review AUG 13 05:19 136 103 H 50 / 102 4.5 30 H 1.60 \ AUG 13 05:19 \ L 8.5 / 5.5 197 / L 28.7 \ Cardiac Markers (Current Encounter/Past 24 Hours) CK 87 Units/Liter 08/13/2021 05:53 ProBNP 587 pg/mL HI 08/13/2021 05:58 Radiology Results (Last 48 hours) [id number] -- 08/11/2021 21:21 CR Chest 1 Vw [...] replacement.Generalized osteopeniaIMPRESSION:No active disease by portable imaging. ECHO 08/12/21 Impression: Technically difficult study due [...] mechan MV, 4+ TR, no vegetation. Admitted [facility] 07/12, Negative CHUCHO, TTE for vegetation that admission Power Port placed 2016 for recurrent transfusion s/t chronic autoimmune anemia Hypotensive h.o mechanical Mitral Valve (2005). Permanent A-fib failed ablation h.o prior DCCV's Chronic Coumadin subtherapeutic INR 1.8 on arrival NICM EF 35-40% (remote ECHO) CardioMems (06/03/18) TRISTAN on CKD-Cr improved to 1.6 Cr 2.5 Baseline unknown DMII COPD PLAN; 08/13/21 Resume Toprol XL 25 mg QHS. Reinitiation of other HF meds as appropriate. 08/12/21 CHUCHO to assess for endocarditis & mechanical causes of hemolysis. Obtain records from [facility]. Check haptoglobin, LDH, reticulocyte count. Continue other current CV meds. Electronically signed by Lanny [facility] Conversion Credit Underwriter Cerner at 03/09/2023 8:50 PM CDT documented in this encounter Plan of Treatment Not on file documented as of this encounter Visit Diagnoses Not on filedocumented in this encounter Care Teams Conveyor Monitor Relationship Specialty Start Date End Date Reji Castro MD [address] [place] [id number] PCP - General Adolescent Medicine 10/02/22 documented as of this encounter
--- OUTSIDE RECORDS SUMMARY | 2025-05-03 08:53 | XMS_ITS | Encounter Summary ---
Author Organization [employer] Address [address] [place] [address] Care Team Providers Care Clinical Quality Manager Name Role Phone Reji Castro MD Primary Care Provider + [phone] Encounter Details Date Type Department Care Team (Late st Contact Info) Description 08/13/2021 Transcribed Document [facility] [place] [address] [place] [address] ProviderDelvin MD [address] [place] [address] Social History Tobacco Use Types Packs/Day Years Used Date Smoking Tobacco: Never Assessed Comments Unknown Sex and Gender Information Value Date Recorded Sex Assigned at Not on file Legal Sex Female 4:32 PM CDT Gender Identity Not on file Sexual Orientation Not on file documented as of this encounter Miscellaneous Notes * Cerner Conversion Note - Delvin ProviderMD - 08/13/2021 10:22 AM CDT Patient: IRINA TAMAYO Age: 56 years Sex: Female : 1965 Associated Diagnoses: None Author: FAIZA YOUSSEF DO Basic Information pt seen and examined 08/13 nausea onset this am at about 4 am despite nausea, ate some of her breakfast, a pancake and a meat, didn't alter the nausea in any way left port a cath, minimal tenderness inferiorly on chest wall, no skin changes some discomfort around left lateral rib cage, around ribs 6-8; tender with palpation, no deformity usually takes dexilant and protonix at home Review of Systems Constitutional: No fever. Respiratory: No shortness of breath. Health Status Allergies: Allergic Reactions (Selected) Severity [...] mg, 14 mL, 128 mL/Hr, IV Piggyback, [id number] Dextrose 50% injection: 12.5 Gram, IV Push, Q15Min, PRN: Other (See Comment) Dextrose 50% injection: 25 Gram, IV Push, Q15Min, PRN: Other (See Comment) Dextrose 50% injection: 25 Gram, IV Push, Q15Min, PRN: Other (See Comment) Dextrose 50% injection: 25 Gram, IV Push, Q15Min, PRN: Other (See Comment) Sodium Chloride 0.9% bolus: 500 mL, 500 mL/Hr, IV Piggyback, 1-Time Toprol-XL: 25 mg, Oral, QPM acetaminophen-oxyCODONE 325 mg-10 mg oral tablet: 1 [...] Last Charted Minimum Maximum Temp 97.9 (AUG 13 06:00) 97.9 (AUG 13 06:00) 98 (AUG 12 23:00) Mon HR 81 (AUG 13 06:00) 50 (AUG 12 15:00) 82 (AUG 12 23:00) Resp Rate 18 (AUG 13 06:00) 18 (AUG 12 14:30) 20 (AUG 12 11:00) SBP 113 (AUG 13 06:00) L 86 (AUG 12 15:00) 113 (AUG 13 06:00) DBP 75 (AUG 13 06:00) L 46 (AUG 12 11:00) 75 (AUG 13 06:00) MAP 91 (AUG 13 06:00) 55 (AUG 12 15:00) 91 (AUG 13 06:00) SpO2 L 93 (AUG 13 06:00) L 93 (AUG 13 06:00) 98 (AUG 12 23:00) General: Alert and oriented, No acute distress. Eye: Pupils are equal, round and reactive to light, Extraocular movements are intact. HENT: Normocephalic, Oral mucosa is moist, No pharyngeal erythema. Neck: Supple, Non-tender. Respiratory: Lungs are clear to auscultation, Respirations are non-labored, Breath sounds are equal, Symmetrical chest wall expansion, left lateral chest wall tenderness without notable abnormality or physical alteration. Cardiovascular: Normal rate, Regular rhythm. Gastrointestinal: Soft, Normal bowel sounds, generalized tenderness, no r/r/g; pt indicates generally more protuberant than usual. Musculoskeletal: Normal range of motion, No deformity. Integumentary: Warm, No rash. Neurologic: Alert, Oriented, Normal motor function, No focal deficits, Cranial Nerves II-XII are grossly intact. Psychiatric: Cooperative, Appropriate mood & affect, talkative. Review / Management Results review: Labs (Last four charted values) WBC 5.5 (AUG 13) 5.0 (AUG 12) 4.7 (AUG 12) 6.7 (AUG 12) HB L 8.5 (AUG 13) L 8.5 (AUG 12) L 8.8 (AUG 12) L 8.7 (AUG 12) HCT L 28.7 (AUG 13) L 28.4 (AUG 12) L 28.8 (AUG 12) L 28.3 (AUG 12) Plt 197 (AUG 13) 212 (SEP ) 206 (AUG 12) 201 (AUG 12) Na 136 (AUG 13) L 134 (AUG 12) L 131 (AUG 11) K 4.5 (AUG 13) 3.6 (AUG 12) 4.1 (AUG 11) Cl 103 (AUG 13) L 98 (AUG 12) L 96 (JUL 20) CO2 30 (AUG 13) 29 (AUG 12) 26 (JUL 20) BUN H 50 (AUG 13) H 69 (AUG 12) H 70 (AUG 11) Cr H 1.60 (AUG 13) H 2.40 (AUG 12) H 2.50 (AUG 11) Glu R 102 (AUG 13) H 134 (AUG 12) 87 (JUL 20) Ca 9.1 (AUG 13) 9.6 (AUG 12) 10.0 (AUG 11) Lactic .93 (AUG 12) L .73 (AUG 11) PT H 16.3 (AUG 13) H 17.5 (AUG 12) H 17.1 (AUG 12) H 18.9 (AUG 11) INR H 1.6 (AUG 13) H 1.7 (AUG 12) H 1.6 (AUG 12) H 1.8 (AUG 11) PTT H 39.6 (AUG 11) AST 17 (AUG 13) 16 (AUG 12) 18 (AUG 11) ALT 19 (AUG 13) 23 (AUG 12) 25 (AUG 11) ALK P 102 (AUG 13) 110 (AUG 12) 128 (AUG 11) T Bili 0.5 (AUG 13) 0.6 (AUG 12) 0.7 (AUG 11) PTN 6.9 (AUG 13) 7.6 (AUG 12) H 8.7 (AUG 11) ALB 3.9 (AUG 13) 3.9 (AUG 12) 4.4 (AUG 11) Troponin <0.015 (AUG 12) <0.015 (AUG 11) <0.015 (AUG 11) . - Versed I.V. 5 mg. Impression: Normal sized left ventricle.Mild left ventricular hypertrophy.Normal left ventricular systolic function.Normal left ventricular systolic function. Visually estimated ejection fraction 55% +/- 5%. Stable mechanical valve replacement with unrestricted disc motion. Physiologic leakage volume present. Structurally normal tricuspid valve. Severe 4+ tricuspid egurgitation. Port-cath seen right atrium. No evidence of endocarditis. Left Ventricle Normal sized left ventricle. Mild left ventricular hypertrophy. Normal left ventricular systolic function. No left ventricular masses or thrombi. Visually estimated ejection fraction 55% +/- 5%. Right Ventricle Impression and Plan sepsis, poa, coagulase negative staph bacteremia. CHUCHO (08-12) EF 55%, Stable mechanical MV, 4+ TR, no vegetation. Hep gtt pending therapeutic INR Power Port placed 2016 for recurrent transfusion s/t chronic autoimmune anemia; needing removal; surgery consult placed mild hypotension on admission, improved likely r/t dehydration and tristan, improving BB added today per cardiology, follow bps and add back appropriate meds as tolerated nausea without vomiting pt indicates 'feels like getting' thrush; no plaques or abnormalities noted, will follow check kub and ruq u/s; labs unrevealing; add lipase Permanent A-fib failed ablation; h.o prior DCCV's Chronic Coumadin subtherapeutic INR 1.8 on arrival chronic AI anemia; haptoglobin noted low, h/h stable TRISTAN on CKD-Cr improved to 1.6 cont avoid nephrotoxins DMII COPD; stable, at baseline hx nephrolithiasis with multiple prior procedures u/a without notable abnormalities or blood Valvular heart disease 4+TR; pt states chronic, no acute symptoms cardiology following medically complex dispo needs port a cath removal, further culture data nausea resolution; clinical improvement time 35mins Electronically signed by Interface, [facility] Conversion Senior Front End Developer Cerner at 03/09/2023 9:02 PM CDT documented in this encounter Plan of Treatment Not on file documented as of this encounter Visit Diagnoses Not on filedocumented in this encounter Care Teams Clinical Quality Manager Relationship Specialty Start Date End Date Reji Castro MD [address] [place] [id number] PCP - General Adolescent Medicine 10/02/22 documented as of this encounter
--- OUTSIDE RECORDS SUMMARY | 2025-05-03 08:53 | XMS_ITS | Referral Summary ---
Author Organization [employer] Address [address] [facility] [place] [address] Care Team Providers Care Mixing Supervisor Name Role Phone Reji Castro MD Primary Care Provider [phone] Allergies Active Allergy Reactions Criticality Noted Date [...] Date Yash rded Speak language other than Maldivian at home Not on file 12/10/2023 Want [...] Orientation Not on file Plan of Treatment Not on file Insurance [facility] Advance Directives For more information, please contact: [phone] Documents on File Type Date Recorded Patient Major Donor Coordinator Expl anation Advance Directives and Gato ponce Will 10/05/2022 8:36 AM Care Teams Mixing Supervisor Relationship Specialty Start Date End Date Reji Castro MD [address] [place] [id number] PCP - General Adolescent Medicine 10/02/22
--- OUTSIDE RECORDS SUMMARY | 2025-05-03 08:53 | XMS_ITS | Encounter Summary ---
Author Organization [employer] Address [address] [place] [address] Care Team Providers Care Manager Advertising Name Role Phone Reji Castro MD Primary Care Provider [phone] Encounter Details Date Type Department Care Team (Late st Contact Info) Description 08/18/2021 Transcribed Document [facility] [place] [address] [place] [address] ProviderDelvin MD [address] [place] [address] Social History Tobacco Use Types Packs/Day Years Used Date Smoking Tobacco: Never Assessed Comments Unknown Sex and Gender Information Value Date Recorded Sex Assigned at Not on file Legal Sex Female 4:32 PM CDT Gender Identity Not on file Sexual Orientation Not on file documented as of this encounter Miscellaneous Notes * Cerner Conversion Note - Delvin ProviderMD - 08/18/2021 8:51 AM CDT Patient: IRINA TAMAYO Age: 56 Years Sex: Female : 1965 Assessment/Plan 56 year old female with infected port-A-cath, now removed. Plan for replacement tomorrow. NPO midnight. Hold heparin at midnight. Obtain consent. Procedure and risks discussed including bleeding, infection, and pneumothorax. Patient understands and agrees. VTE Prophylaxis - Medical Sequential Compression Device Start: 08/11/21 20:26:00 EDT, Bilateral, Length: Knee High, While patient is in bed, Continuous Order (REJI GUERRA) Subjective No complaints. Vital Signs T: 36.7 ??C TMIN: 36.6 ??C TMAX: 36.9 ??C HR: 63(Monitored) RR: 18 BP: 105/53 SpO2: 95% Oxygen Settings (Last) Oxygen Therapy Mode: Room air (08/17/21 22:00:00) Oxygen Flow Rate: 1 Liter/Min (08/14/21 08:00:00) Intake & Output Totals Last 24 Hours (7a-7a) Input Total: 1805 mL Output Total: 1550 mL Balance: 255 mL Physical Exam Gen: NAD Resp: Nonlabored respirations CV: Normal peripheral perfusion, regular rate and rhythm. Ab: soft, nondistended, nontender Medications acetaminophen, 650 mg= 2 Tab, Oral, Q6H, PRN albuterol 2.5 mg/3 mL (0.083%) inhalation solution, 3 mL, Nebulized Inhalation , RT_Q4H, PRN ALPRAZolam, 0.5 mg= 1 Tab, Oral, TID, PRN aspirin, 81 mg= 1 Tab, Oral, Daily ceFAZolin + Sodium Chloride 0.9% intravenous solution 50 mL CeleXA, 40 mg= 2 Tab, Oral, Daily Dextrose 50% [...] Result Date/Time Sodium Level 134 mmol/L (Low) 08/18/2021 06:56 EDT Potassium Level 4.6 mmol/L 08/18/2021 06:56 EDT Chloride Level 105 mmol/L 08/18/2021 06:56 EDT Carbon Dioxide Level 28 mmol/L 08/18/2021 06:56 EDT Anion Gap 6 (Low) 08/18/2021 06:56 EDT Glucose Level 137 mg/dL (High) 08/18/2021 06:56 EDT Blood Urea Nitrogen 18 mg/dL 08/18/2021 06:56 EDT Creatinine Level 1.40 mg/dL (High) 08/18/2021 06:56 EDT eGFR 47 mL/min/1.73m2 (Low) 08/18/2021 06:56 EDT eGFR NonAfrican 39 mL/min/1.73m2 (Low) 08/18/2021 06:56 EDT Bun/Creatinine 12.9 08/18/2021 06:56 EDT Calcium Level 8.8 mg/dL 08/18/2021 06:56 EDT Protein Total 6.8 Gram/dL 08/18/2021 06:56 EDT Albumin Level 3.9 Gram/dL 08/18/2021 06:56 EDT Globulin 2.9 Gram/dL 08/18/2021 06:56 EDT A/G Ratio 1.3 08/18/2021 06:56 EDT Bilirubin Total 0.6 mg/dL 08/18/2021 06:56 EDT Alk Phos 110 Units/Liter 08/18/2021 06:56 EDT AST 17 Units/Liter 08/18/2021 06:56 EDT ALT 12 Units/Liter (Low) 08/18/2021 06:56 EDT Device Comment 1 Notified Nurse RBV 08/18/2021 06:29 EDT Device Comment 1 Notified Nurse RBV 08/17/2021 20:16 EDT Device Comment 1 Notified Nurse RBV 08/17/2021 16:54 EDT Device Comment 1 Notified Nurse RBV 08/17/2021 11:03 EDT Glucose POC2 122 mg/dL (High) 08/18/2021 06:29 EDT Glucose POC2 146 mg/dL (High) 08/17/2021 20:16 EDT Glucose POC2 114 mg/dL (High) 08/17/2021 16:54 EDT Glucose POC2 134 mg/dL (High) 08/17/2021 11:03 EDT CRP 3.68 mg/dL (High) 08/18/2021 06:56 EDT WBC 7.0 K/uL 08/18/2021 06:56 EDT RBC 3.08 Million/uL (Low) 08/18/2021 06:56 EDT Hgb 7.7 g/dL (Low) 08/18/2021 06:56 EDT Hct 26.2 % (Low) 08/18/2021 06:56 EDT MCV 85.1 fL 08/18/2021 06:56 EDT MCH 25.0 pg (Low) 08/18/2021 06:56 EDT MCHC 29.4 Gram/dL (Low) 08/18/2021 06:56 EDT Platelet Count 207 K/uL 08/18/2021 06:56 EDT MPV 10.2 fL 08/18/2021 06:56 EDT RDW 19.5 % (High) 08/18/2021 06:56 EDT Neut % 76.4 % (High) 08/18/2021 06:56 EDT Neut # 5.34 K/uL 08/18/2021 06:56 EDT Lymph % 7.4 % (Low) 08/18/2021 06:56 EDT Lymph # 0.52 x10(3)/uL (Low) 08/18/2021 06:56 EDT Lyman % 8.7 % 08/18/2021 06:56 EDT Lyman # 0.61 K/uL 08/18/2021 06:56 EDT Eos % 5.0 % 08/18/2021 06:56 EDT Eos # 0.35 x10(3)/uL 08/18/2021 06:56 EDT Baso % 0.4 % 08/18/2021 06:56 EDT Baso # 0.03 x10(3)/uL 08/18/2021 06:56 EDT Slide Review No 08/18/2021 06:56 EDT IG# 0.15 x10(3)/uL (High) 08/18/2021 06:56 EDT IG% 2.10 % (High) 08/18/2021 06:56 EDT PT 13.6 Second(s) (High) 08/18/2021 06:56 EDT INR 1.3 (High) 08/18/2021 06:56 EDT Electronically signed by [facility] Conversion Consultant Intern Cerner at 03/09/2023 9:00 PM CDT documented in this encounter Plan of Treatment Not on file documented as of this encounter Visit Diagnoses Not on filedocumented in this encounter Care Teams Manager Advertising Relationship Specialty Start Date End Date Reji Castro MD [address] [place] [id number] PCP - General Adolescent Medicine 10/02/22 documented as of this encounter
--- OUTSIDE RECORDS SUMMARY | 2025-05-03 08:53 | XMS_ITS | Encounter Summary ---
Author Organization [employer] Address [address] [place] [address] Care Team Providers Care Software Controls Engineer Name Role Phone Reji Castro MD Primary Care Provider + [phone] Encounter Details Date Type Department Care Team (Late st Contact Info) Description 08/13/2021 Transcribed Document [facility] [place] [facility] [place] [address] ProviderDelvin MD [address] [place] [address] Social History Tobacco Use Types Packs/Day Years Used Date Smoking Tobacco: Never Assessed Comments Unknown Sex and Gender Information Value Date Recorded Sex Assigned at Not on file Legal Sex Female 4:32 PM CDT Gender Identity Not on file Sexual Orientation Not on file documented as of this encounter Miscellaneous Notes * Cerner Conversion Note - Delvin Celestin MD - 08/13/2021 9:56 AM CDT Consult Phone Call Documentation Entered On: 08/13/2021 10:10 EDT Performed On: 08/13/2021 9:56 EDT by Reina Tian, HELPER SHEAR OPERATOR Phone Call for Consults Consult Phone Call/Page Attempt : First call Consult Reason : paula cath infection, needing removal Physician Requested for Consult : Elieser VERNON MD-TATYANA Date and Time Call Returned : 08/14/2021 10:08 EDT Reina Tian, HELPER SHEAR OPERATOR - 08/13/2021 10:09 EDT documented in this encounter Plan of Treatment Not on file documented as of this encounter Visit Diagnoses Not on filedocumented in this encounter Care Teams Software Controls Engineer Relationship Specialty Start Date End Date Reji Castro MD [address] [place] [id number] PCP - General Adolescent Medicine 10/02/22 documented as of this encounter
--- OUTSIDE RECORDS SUMMARY | 2025-05-03 08:53 | XMS_ITS | Encounter Summary ---
Author Organization [employer] Address [address] [place] [address] Care Team Providers Care Sample Mounter Name Role Phone Reji Castro MD Primary Care Provider + [phone] Encounter Details Date Type Department Care Team (Late st Contact Info) Description 08/17/2021 Transcribed Document [facility] [place] Family Medicine [address] [place] [address] ProviderDelvin MD [address] [place] [address] Social History Tobacco Use Types Packs/Day Years Used Date Smoking Tobacco: Never Assessed Comments Unknown Sex and Gender Information Value Date Recorded Sex Assigned at Not on file Legal Sex Female 4:32 PM CDT Gender Identity Not on file Sexual Orientation Not on file documented as of this encounter Miscellaneous Notes * Cerner Conversion Note - Delvin ProviderMD - 08/17/2021 5:00 AM CDT Chart Check - Review Order Profile Entered On: 08/17/2021 6:06 EDT Performed On: 08/17/2021 5:00 EDT by Phyllis Quiros Lpn Chart Check Powerplans Initiated/Discontinued as Appropriate : Yes All Active Orders Reviewed : Yes Phyllis Quiros Lpn - 08/17/2021 6:06 EDT Electronically signed by [facility] Conversion School Based Therapist Marisa at 03/09/2023 8:53 PM CDT documented in this encounter Plan of Treatment Not on file documented as of this encounter Visit Diagnoses Not on filedocumented in this encounter Care Teams Sample Mounter Relationship Specialty Start Date End Date Reji Castro MD [address] [place] [id number] PCP - General Adolescent Medicine 10/02/22 documented as of this encounter
--- OUTSIDE RECORDS SUMMARY | 2025-05-03 08:53 | XMS_ITS | Encounter Summary ---
Author Organization [employer] Address [address] [place] [address] Care Team Providers Care Artist'S Model Name Role Phone Reji Castro MD Primary Care Provider [phone] Encounter Details Date Type Department Care Team (Late st Contact Info) Description 08/17/2021 Transcribed Document [facility] [place] Family Medicine [address] [place] [address] ProviderDelvin MD [address] [place] [address] Social History Tobacco Use Types Packs/Day Years Used Date Smoking Tobacco: Never Assessed Comments Unknown Sex and Gender Information Value Date Recorded Sex Assigned at Not on file Legal Sex Female 4:32 PM CDT Gender Identity Not on file Sexual Orientation Not on file documented as of this encounter Miscellaneous Notes * Cerner Conversion Note - Delvin ProviderMD - 08/17/2021 3:29 PM CDT Vital Measurements Entered On: 08/17/2021 15:29 EDT Performed On: 08/17/2021 15:29 EDT by Vivienne Crow Vital Measurements Temperature Source : Oral Temperature Mode : KarlaenhVivienne Mendiola - 08/17/2021 15:29 EDT documented in this encounter Plan of Treatment Not on file documented as of this encounter Visit Diagnoses Not on filedocumented in this encounter Care Teams Artist'S Model Relationship Specialty Start Date End Date Reji Castro MD [address] [place] [address] PCP - General Adolescent Medicine 10/02/22 documented as of this encounter
--- OUTSIDE RECORDS SUMMARY | 2025-05-03 08:53 | XMS_ITS | Encounter Summary ---
Author Organization [employer] Address [address] [place] [address] Care Team Providers Care Head Of Digital Name Role Phone Reji aCstro MD Primary Care Provider + [phone] Encounter Details Date Type Department Care Team (Late st Contact Info) Description 08/17/2021 Transcribed Document [facility] [place] Medicine [facility] [place] [address] ProviderDelvin MD [address] [place] [address] Social History Tobacco Use Types Packs/Day Years Used Date Smoking Tobacco: Never Assessed Comments Unknown Sex and Gender Information Value Date Recorded Sex Assigned at Not on file Legal Sex Female 4:32 PM CDT Gender Identity Not on file Sexual Orientation Not on file documented as of this encounter Miscellaneous Notes * Cerner Conversion Note - Delvin Celestin MD - 08/17/2021 12:33 PM CDT Patient: IRINA TAMAYO Age: 56 [...] renal function cr 1.6mg/dl. , Today's Information: Stable overnight. No new events noted. iron 6 % . Review of Systems Constitutional: Weakness, Fatigue, No fever, No chills. Respiratory: No shortness of breath, No hemoptysis. Gastrointestinal: Nausea, No vomiting, No diarrhea. Genitourinary: No dysuria, No hematuria. Neurologic: Alert and oriented X4. Physical Examination Intake and Output Intake & Output Totals Last 24 Hours (7a-7a) Intake (8 Events) Medications (196 mL) Oral Intake (540 mL) Output (3 Events) Urine Voided (Volume) (1850 mL) Input Total: 736 mL Output Total: 1850 mL Balance: -1114 mL , Weight (Daily) No Qualifying Routine Weight Events VS/Measurements Vitals Signs (last 24 hrs) Last Charted Minimum Maximum Temp 97.9 (AUG 17 11:15) 97.9 (AUG 17:15) 98 (AUG 16 13:43) Apical HR 83 (AUG 16 21:41) 83 (AUG 16 21:41) 83 (AUG 16 21:41) Mon HR 68 (AUG 17 11:15) 68 (AUG 17 11:15) 93 (AUG 17 03:45) Resp Rate 16 (AUG 17 11:15) 16 (AUG 16 13:43) 16 (AUG 16 13:43) SBP 106 (AUG 17 11:15) 100 (AUG 17 03:45) 129 (AUG 16 13:43) DBP 64 (AUG 17 11:15) L 55 (AUG 17 05:21) 75 (AUG 16 18:52) MAP 78 (AUG 17 11:15) 74 (AUG 17 05:21) 91 (AUG 16 18:52) SpO2 L 90 (AUG 17 11:15) L 90 (AUG 17 11:15) 96 (AUG 17 05:21) General: No acute distress. Eye: Extraocular movements [...] 17) 7.1 (AUG 15) 6.7 (AUG 14) 5.5 (AUG 13) HB L 7.5 (AUG 17) L 7.5 (AUG 16) L 7.9 (AUG 15) L 8.0 (AUG 14) HCT L 25.4 (AUG 17) L 25.9 (AUG 16) L 26.7 (AUG 15) L 27.2 (AUG 14) Plt 195 (AUG 17) 197 (SEP 24) 210 (SEP 23) 206 (AUG 13) Na L 135 (AUG 17) 137 (JUL 25) 137 (JUL 24) L 135 (JUL 22) K 4.4 (AUG 17) 4.4 (SEP 25) 4.4 (SEP 24) 4.2 (JUL 22) Cl 104 (AUG 17) 106 (JUL 25) 104 (JUL 24) 102 (JUL 22) CO2 27 (SEP ) 25 (SEP 25) 27 (SEP 24) 29 (SEP 22) BUN 18 (AUG 17) H 23 (JUL 25) H 28 (JUL 24) H 35 (JUL 22) Cr H 1.20 (AUG 17) H 1.40 (JUL 25) H 1.80 (JUL 24) H 1.80 (JUL 22) Glu R H 126 (AUG 17) H 112 (JUL 25) H 139 (JUL 24) H 114 (JUL 22) Ca 8.9 (AUG 17) 9.5 (JUL 25) 9.4 (JUL 24) 9.1 (JUL 22) Lactic .93 (JUL 21) L .73 (JUL 20) PT H 14.6 (AUG 17) H 17.2 (JUL 25) H 18.2 (JUL 24) H 17.2 (JUL 23) INR H 1.4 (AUG 17) H 1.7 (AUG 16) H 1.8 (AUG 15) H 1.7 (AUG 14) PTT H 39.6 (AUG 11) [...] (AUG 11) <0.015 (AUG 11) . AUG 17 08:05 L 135 104 18 / H 126 4.4 27 H 1.20 \ AUG 17 08:05 \ L 7.5 / 6.4 195 / L 25.4 \ Impression and Plan Dx and Plan [...] 8. Transfusion dependent anemia- T sat 6%. Venofer ordered Recommendations: TRISTAN on CKD stage III. Baseline cr 1.6mg/dl. Cr on this admit 2.4-2.5mg/dl. Creatinine improved to 1.2. Renal function improved. Check CK level on daptomycin weekly. Monitor GFR adjust medications. Encourage oral hydration. Can give Venofer, patient state she can have it. documented in this encounter Plan of Treatment Not on file documented as of this encounter Visit Diagnoses Not on filedocumented in this encounter Care Teams Head Of Digital Relationship Specialty Start Date End Date Reji Castro MD [address] [place] [id number] PCP - General Adolescent Medicine 10/02/22 documented as of this encounter
--- OUTSIDE RECORDS SUMMARY | 2025-05-03 08:53 | XMS_ITS | Encounter Summary ---
Author Organization [employer] Address [address] [place] [address] Care Team Providers Care Dental Services Director Name Role Phone Reji Castro MD Primary Care Provider [phone] Encounter Details Date Type Department Care Team (Late st Contact Info) Description 08/18/2021 Transcribed Document [facility] [place] [address] [place] [address] ProviderDelvin MD [address] [place] [address] Social History Tobacco Use Types Packs/Day Years Used Date Smoking Tobacco: Never Assessed Comments Unknown Sex and Gender Information Value Date Recorded Sex Assigned at Not on file Legal Sex Female 4:32 PM CDT Gender Identity Not on file Sexual Orientation Not on file documented as of this encounter Miscellaneous Notes * Cerner Conversion Note - Delvin ProviderMD - 08/18/2021 5:00 PM CDT Chart Check - Review Order Profile Entered On: 08/18/2021 17:55 EDT Performed On: 08/18/2021 17:00 EDT by WILLIAMS HANEY, RN Chart Check Powerplans Initiated/Discontinued as Appropriate : Yes All Active Orders Reviewed : Yes WILLIAMS HANEY RN - 08/18/2021 17:55 EDT documented in this encounter Plan of Treatment Not on file documented as of this encounter Visit Diagnoses Not on filedocumented in this encounter Care Teams Dental Services Director Relationship Specialty Start Date End Date Reji Castro MD [address] [place] [id number] PCP - General Adolescent Medicine 10/02/22 documented as of this encounter
--- OUTSIDE RECORDS SUMMARY | 2025-05-03 08:53 | XMS_ITS | Encounter Summary ---
Author Organization [employer] Address [address] [place] [address] Care Team Providers Care Physics Tutor Name Role Phone Reji Castro MD Primary Care Provider [phone] Encounter Details Date Type Department Care Team (Late st Contact Info) Description 08/13/2021 Transcribed Document [facility] Family Medicine [facility] [place] [address] ProviderDelvin MD [facility] [place] [address] Social History Tobacco Use Types Packs/Day Years Used Date Smoking Tobacco: Never Assessed Comments Unknown Sex and Gender Information Value Date Recorded Sex Assigned at Not on file Legal Sex Female 4:32 PM CDT Gender Identity Not on file Sexual Orientation Not on file documented as of this encounter Miscellaneous Notes * Cerner Conversion Note - Delvin ProviderMD - 08/13/2021 2:00 AM CDT Knife Setter Grinder Machine Details Entered On: 08/13/2021 6:35 EDT Performed On: 08/13/2021 2:00 EDT by Genna Gonsalez RN Order [...] Crushed/Liquid : No Genna Gonsalez RN - 08/13/2021 6:35 EDT documented in this encounter Plan of Treatment Not on file documented as of this encounter Visit Diagnoses Not on filedocumented in this encounter Care Teams Physics Tutor Relationship Specialty Start Date End Date Reji Castro MD [address] [place] [id number] PCP - General Adolescent Medicine 10/02/22 documented as of this encounter
--- OUTSIDE RECORDS SUMMARY | 2025-05-03 08:53 | XMS_ITS | Encounter Summary ---
Author Organization [employer] Address [address] [place] [address] Care Team Providers Care Cash Processor Name Role Phone Reji Castro MD Primary Care Provider [phone] Encounter Details Date Type Department Care Team (Late st Contact Info) Description 08/13/2021 Transcribed Document [facility] Family Medicine [address] [place] [address] ProviderDelvin MD [address] [place] [address] Social History Tobacco Use Types Packs/Day Years Used Date Smoking Tobacco: Never Assessed Comments Unknown Sex and Gender Information Value Date Recorded Sex Assigned at Not on file Legal Sex Female 4:32 PM CDT Gender Identity Not on file Sexual Orientation Not on file documented as of this encounter Miscellaneous Notes * Cerner Conversion Note - Delvin Celestin MD - 08/13/2021 7:24 AM CDT UM Authorization Entered On: 08/13/2021 7:24 EDT Performed On: 08/13/2021 7:24 EDT by Marline Leija, Environmental Protection Specialist Primary Insurance Authorization Authorization and Policy Numbers : Insurance 1 Health Plan: [employer] P[employer] Policy Number: [id number] Authorization Number: Insurance 2 Health Plan: MED[place]ID OF [place] Policy Number: [id number] Authorization Number: Insurance Primary Name : [employer] PPO Policy Number: [id number] Authorization Status-Primary : Notification only Reference Number-Primary : [id number] Authorization Number-Primary : [id number] Authorized Service Begin Date-Primary : 08/11/2021 EDT Authorization Comments-Primary : Authorized per email from Khari Cohen RN. Historical Authorization Comments-Primary : Comment 1: Pend ref no per Availity, reviewer has access to Cerner (JORGE VALLES RN 08/12/2021 14:07) Marline Leija, Environmental Protection Specialist - 08/13/2021 7:24 EDT Electronically signed by [facility] Conversion Hat Forming Machine Feeder Cerner at 03/09/2023 8:49 PM CDT documented in this encounter Plan of Treatment Not on file documented as of this encounter Visit Diagnoses Not on filedocumented in this encounter Care Teams Cash Processor Relationship Specialty Start Date End Date Reji Castro MD [address] [place] [id number] PCP - General Adolescent Medicine 10/02/22 documented as of this encounter
--- OUTSIDE RECORDS SUMMARY | 2025-05-03 08:53 | XMS_ITS | Encounter Summary ---
Author Organization [employer] Address [address] [place] [address] Care Team Providers Care Aeronautical Products Sales Engineer Name Role Phone Reji Castro MD Primary Care Provider [phone] Encounter Details Date Type Department Care Team (Late st Contact Info) Description 08/23/2021 Transcribed Document [facility] Medicine [address] [place] [address] ProviderDelvin MD [address] [place] [address] Social History Tobacco Use Types Packs/Day Years Used Date Smoking Tobacco: Never Assessed Comments Unknown Sex and Gender Information Value Date Recorded Sex Assigned at Not on file Legal Sex Female 4:32 PM CDT Gender Identity Not on file Sexual Orientation Not on file documented as of this encounter Miscellaneous Notes * Cerner Conversion Note - Historical ProviderMD - 08/23/2021 2:00 AM CDT Utility Assembler Details Entered On: 08/23/2021 2:15 EDT Performed On: 08/23/2021 2:00 EDT by Cecilia Lai, Pulvi Mixer Operator-Student Nurse Order Details Transport Mode Order Detail : Wheelchair Isolation Precautions Order Detail : Standard Precautions Order Detail : 0 IV Order Detail : 1 Oxygen Order Detail : 0 Lift/Transfer : Independent Central Line Order Detail : Yes Room Service : Appropriate Arterial Line : No Patient Needs Meds Crushed/Liquid : No Cecilia Lai, Pulvi Mixer Operator-Student Nurse - 08/23/2021 2:15 EDT documented in this encounter Plan of Treatment Not on file documented as of this encounter Visit Diagnoses Not on filedocumented in this encounter Care Teams Aeronautical Products Sales Engineer Relationship Specialty Start Date End Date Reji Castro MD [address] [place] [id number] PCP - General Adolescent Medicine 10/02/22 documented as of this encounter
--- OUTSIDE RECORDS SUMMARY | 2025-05-03 08:53 | XMS_ITS | Clinical Summary ---
Author Organization [facility] Address [address] [place] [address] Care Team Providers Care Yard Pipe Grader Name Role Phone Reji Castro MD Primary Care Provider Allergies Active Allergy Reactions Criticality Noted Date Comments Buprenorphine Diarrhea,Vomiting Low 05/15/2014 Bupropion Other - please docum ent in the comment field Low 11/01/2018 Emotional Codeine Itching,Headache Medium 05/15/2014 Corticosteroids Swelling High 08/11/2017 Digoxin Other - please docum ent in the comment field Low 03/19/2020 Digitalis toxicity Gabapentin Swelling High 03/19/2020 CHF Levofloxacin Unknown - Patient st ates they do not know rxn details Low 05/15/2014 Lisinopril Cough Low 07/07/2024 Pregabalin Swelling High 03/19/2020 CHF Rosuvastatin Other - please docum ent in the comment field Low 08/11/2017 Muscle spasms Sacubitril Other - please docum ent in the comment field Low 07/07/2024 Theophylline Shortness of breath High 08/11/2017 Valsartan Other - please docum ent in the comment field Low 07/07/2024 Medications ALPRAZolam (Xanax) 0.5 MG tablet Take 1 tablet (0.5 mg) by mouth 3 (three) times a day. 7 Active citalopram (CeleXA) 40 MG tablet Take 1 tablet (40 mg) by mouth 1 (one) time each day. 7 Active febuxostat (Uloric) 40 MG tablet Take 1 tablet (40 mg) by mouth 1 (one) time each day. 1 Active levothyroxine (Synthroid, Levoxyl) 25 MCG tablet Take 1 tablet (25 mcg) by mouth 1 (one) time each day. 7 Active oxyCODONE-aceta minophen (Percocet) 10-325 MG tablet Take 1 tablet by mouth 3 (three) times a day if needed. Active spironolactone (Aldactone) 25 MG tablet Take 1 tablet (25 mg) by mouth 2 (two) times a day. 0 Active calcitriol (Rocaltrol) 0.25 MCG capsule Take 1 capsule (0.25 mcg) by mouth 1 (one) time each day. 3 Active metoprolol succinate XL (Toprol-XL) 200 MG 24 hr tablet Take 0.5 tablets (100 mg) by mouth 1 (one) time each day. 3 Active omeprazole (PriLOSEC) [address] capsule Take 1 capsule (40 mg) by mouth 2 (two) times a day. 3 Active potassium chloride CR (Klor-Con M20) 20 MEQ ER tablet Take 1 tablet (20 mEq) by mouth 2 (two) times a day. 3 Active warfarin (Coumadin) 4 MG tablet Take 1 tablet (4 mg) by mouth Wednesday, Wednesday, and Wednesday. Take 1/2 tablet (2 mg) by mouth Wednesday, , Wednesday, and Wednesday 3 Active Insulin Glargine-Lixise natide (Soliqua) 100-33 UNT-MCG/ML solution pen-injector Inject 50 Units under the skin 1 (one) time each day in the morning. Active budesonide (Pulmicort) 0.5 MG/2ML nebulizer solution Take 2 mL (0.5 mg) by nebulization 2 (two) times a day. Rinse mouth with water after use to reduce aftertaste and incidence of candidiasis. Do not swallow. Active bumetanide (Bumex) 1 MG tablet Take 1 tablet (1 mg) by mouth 2 (two) times a day. Active aspirin 81 MG EC tablet Take 1 tablet (81 mg) by mouth 1 (one) time each day. Active Probiotic Product (acidophilus probiotic blend) capsule Take 1 capsule by mouth 1 (one) time each day. Active docusate sodium (Colace) 100 MG capsule Take 1 capsule (100 mg) by mouth 2 (two) times a day if needed for constipation. Active benzonatate (Tessalon) 100 MG capsule Take 1 capsule (100 mg) by mouth 3 (three) times a day if needed for cough. 4 Active bisacodyl (Dulcolax) 5 MG EC tablet Take 1 tablet (5 mg) by mouth 1 (one) time each day if needed. 3 Active Colchicine 0.6 MG capsule Take 0.6 mg by mouth if needed. 3 Active nitrofurantoin, macrocrystal-mo nohydrate, (Macrobid) 100 MG capsule Take 1 capsule (100 mg) by mouth 1 (one) time. 4 Active metoprolol succinate XL (Toprol-XL) 100 MG 24 hr tablet Take 1 tablet (100 mg) by mouth 2 (two) times a day. 4 Active warfarin (Coumadin) 5 MG tablet Take 0.5 tablets (2.5 mg) by mouth 1 (one) time each day. 3 Active albuterol 108 (90 Base) MCG/ACT inhaler Take 2 puffs by mouth every 4 (four) hours if needed. Active amiodarone (Pacerone) 200 MG tablet Take 1 tablet (200 mg) by mouth 1 (one) time each day. Active azithromycin (Zithromax) 250 MG tablet Take 1 tablet (250 mg) by mouth 1 (one) time each day. Active Continuous Glucose Health Information Internship (FreeStyle Gerson 14 Day [place]) device use as directed 4 Active Continuous Glucose Sensor (FreeStyle Gerson 14 Day Sensor) misc REPLACE EVERY 14 DAYS DIRECTED 4 Active Dexilant [address] capsule Take 1 capsule (60 mg) by mouth 1 (one) time each day. Active DULoxetine (Cymbalta) [address] capsule Take 1 capsule (60 mg) by mouth 1 (one) time each day. 5 Active Jardiance 10 MG Take 1 tablet (10 mg) by mouth 1 (one) time each day in the morning. 4 Active glucose blood test strip USE TO CHECK BLOOD GLUCOSE 2 TIMES DAILY. 4 Active Lantus SoloStar 100 UNIT/ML injection pen Inject under the skin. Active BD Pen Needle Mariely U/F 32G X 4 MM misc 2 (two) times a day. 4 Active NovoLIN R 100 UNIT/ML injection vial Inject under the skin. Active BD Insulin Syringe U/F 30G X 1/2 0.5 ML misc USE THREE TIMES DAILY WITH MEALS 4 Active ipratropium-alb uterol (Duo-Neb) 0.5-2.5 mg/3 mL nebulizer solution INHALE 1 VIAL VIA NEBULIZER EVERY 3 HOURS NEEDED FOR SHORTNESS OF BREATH UNTIL BREATHING RETURNS TO TARGET PEAK/FLOW PARAMETERS. Active lidocaine (Lidoderm) 5 % patch APPLY ONE PATCH-LEAVE ON FOR 12 HOURS & OFF FOR 12 HOURS. Active metOLazone (Zaroxolyn) 2.5 MG tablet 1 (one) time each day. 4 Active mupirocin (Bactroban) 2 % ointment Apply 1 Application topically 2 (two) times a day. 5 Active bumetanide (Bumex) 2 MG tablet Take 1 tablet (2 mg) by mouth 1 (one) time each day. 5 Active spironolactone (Aldactone) 50 MG tablet Take 1 tablet (50 mg) by mouth 2 (two) times a day. 5 Active Active Problems Problem Noted Date Diagnosed Date Second hand smoke exposure 12/08/2023 Hypertensive heart disease 11/29/2023 History of mitral valve replacement with mechani kori valve 11/29/2023 Constipation 11/29/2023 Acute on chronic HFrEF (hear t failure with reduced ejection fraction) 11/29/2023 Acute chest wall pain 11/29/2023 Essential (primary) hypertension 11/23/2023 Overview (11/23/2023): Resume home medications as appropriate. Electrolyte abnormality 11/23/2023 Overview (11/23/2023): Hypocalcemia Hypokalemia Hypomagnesemia Hypophosphatemia Monitor - Replete cautiously in setting of CKD Anemia 11/23/2023 Overview (11/23/2023): Monitor Transfuse as indicated COPD (chronic obstructive pulmonary disease) 12/2023 Overview (11/23/2023): On 2L home O2 Resume home medications as appropriate. Chronic respiratory failure with hypoxia 024 Overview (11/23/2023): On 2L home O2 Obesity (BMI 30-39.9) 11/19/2023 Overview (11/19/2023): Complicates recovery Esophageal perforation 11/18/2023 Overview (11/23/2023): Upper GI on 11/19/2023: no evidence of leak, limited study due patient intolerance of contrast IV abx started 11/18/2023 - changed to PO Augmentin/Fluconazole on 11/23/2023 HLIV PO diet advanced to mechanical soft on 11/23/2023 Hyperparathyroidism 06/22/2023 Hypothyroidism 06/22/2023 Overview (11/22/2023): Home levothyroxine Obstructive sleep apnea syndrome 12/17/2022 Tibial plateau fracture 04/12/2020 06/18/20 23 CKD (chronic kidney disease) stage 3, GFR 30-59 ml/min 10/18/2019 06/18/2023 Overview (11/19/2023): Monitor labs Avoid nephrotoxic agents Amblyopia of eye 08/12/2017 06/18/2023 Autoimmune hemolytic anemia 08/12/201705/23 History of mitral valve replacement 08/12/2017 06/18/2023 Overview (11/24/2023): Home wafarin restarted 11/22/2023 Daily INR while hospitalized Follow up with Cardiology and Coumadin clinic outpatient Atrial fibrillation 08/11/2017 06/18/2023 Overview (11/23/2023): Resume home medications as appropriate. Home metoprolol Coronary artery disease 08/11/2017 06/18/20 23 Diabetes 08/11/2017 06/18/2023 Overview (11/23/2023): Hgb A1C 7.1 on 11/20/2023 FSBS SSI Resume home medications as appropriate. Diastolic congestive heart failure 08/11/2017 06/18/2023 Overview (11/23/2023): Resume home medications as appropriate. Gout 08/11/2017 06/18/2023 Mitral valve disease 08/11/2017 06/18/2023 Overview (11/23/2023): S/p mechanical mitral valve replacement Resume anticoagulation as indicated Peripheral vascular disease 08/11/201705/23 Tricuspid regurgitation 08/11/2017 06/18/20 23 Uncontrolled type 2 diabetes mellitus with hyper glycemia 11/05/2016 06/18/2023 Hyperlipidemia 07/06/2016 06/18/2023 Disorder of nervous system due to type 2 diabete s mellitus 07/06/2016 Overview (12/18/2024): From Automated Load;Provider: Bdu Rendon;Status: Active Thyroiditis 12/31/2015 06/18/2023 Immunizations Immunization Administration Dates Next Due Hib (PRP-T) 12/30/2018 Influenza, injectable, quadr ivalent, preservative free 09/02/2020,09/11/2019,09/14/2017 Influenza, recombinant, quad rivalent, injectable, preservative free 08/16/2024,08/19/2022,07/24/2021 Meningococcal B, Omv 03/03/2019,12/30/2018 Meningococcal MCV4O 03/03/2019,12/30/2018 Moderna COVID-19 Vaccine (Re d Cap) 12+ years 02/24/2021,01/27/2021 Pneumococcal 20-fred Conj Vaccine 09/28/2023 Pneumococcal Conjugate PCV 13 12/30/2018 Pneumococcal Polysaccharide PPV23 03/03/2019 Rsvpref, Recombinant, Protei n Subunit, Adjuvent 09/28/2023 Tdap 12/15/2024,04/03/2023 Family History Medical History Relation Name Comments Conversions - Other Father No famil y history of cancer Diabetes Father Hypertension Father COPD Mother Conversions - Other Mother No famil y history of cancer Relation Name Status Comments Father Mother Social History Tobacco Use Types Packs/Day Years Used Date Smoking Tobacco: Former Cigarettes 0.5 30 1 976 - 2006 Smokeless Tobacco: Never Tobacco Cessation:Counseling Given: Not Answered Alcohol Use Standard Drinks/Week Comments No 0 (1 standard drink = 0.6 oz pure alcohol) Alcoholic Drinks/day: No history of alcohol use Humiliation, Afraid, Rape, and Kick questionnair e Answer Date Recorded Within the last year, have y ou been afraid of your partner or ex-partner? No 11/19/2023 Within the last year, have y ou been humiliated or emotionally abused in other ways by your partner or ex-partner? No Within the last year, have y ou been kicked, hit, slapped, or otherwise physically hurt by your partner or ex-partner? No 11/19/2023 Within the last year, have y ou been raped or forced to have any kind of sexual activity by your partner or ex-partner? No 11/19/2023 PHQ-2 Answer Date Recorded Patient Health Questionnaire-2 Score 0 12/07/2023 Hunger Vital Sign Answer Date Recorded Within the past 12 months, y ou worried that your food would run out before you got the money to buy more. Never true 11/19/20 23 Within the past 12 months, t he food you bought just didn't last and you didn't have money to get more. Never true 11/19/2023 PRAPARE - Transportation Answer Date Re corded In the past 12 months, has l ack of transportation kept you from medical appointments or from getting medications? No 10/23 In the past 12 months, has l ack of transportation kept you from meetings, work, or from getting things needed for daily living? No 11/19/2023 Housing Stability Vital Sign Answer Jose Luis e Recorded In the last 12 months, was t here a time when you were not able to pay the mortgage or rent on time? No 11/19/2023 [address] of [address] Lived in the Last Year Not on f ile 11/19/2023 In the last 12 months, was t here a time when you did not have a steady place to sleep or slept in a long-term (including now)? No 11/19/2023 Utilities Answer Date Recorded In the past 12 months has [employer], gas, oil, or water company threatened to shut off services in your home? No 11/19/2023 PHQ-2A Answer Date Recorded Patient Health Questionnaire-2 Score 0 06/22/2023 Comments Unknown Sex and Gender Information Value Date Recorded Sex Assigned at Not on file Legal Sex Female 7:29 PM EDT Gender Identity Not on file Sexual Orientation Not on file Last Filed Vital Signs Vital Sign Reading Time Taken Comments Blood Pressure 107/72 12/19/2024 10:29 AM EST Pulse 80 12/19/2024 10:29 AM EST Temperature 36.5 C (97.7 F) 12/19/2024 10:29 AM EST Respiratory Rate 16 12/16/2024 1:40 AM EST Oxygen Saturation 95% 12/19/2024 10:29 AM EST Inhaled Oxygen Concentration - - Weight 85.9 kg (189 lb 6 oz) 12/19/2024 10:29 AM EST Height 162.6 cm (5' 4 ) 12/19/2024 10:29 AM EST Body Mass Index 32.51 12/19/2024 10:29 AM EST Plan of Treatment Health Maintenance Due Date Last Done Comments Dental Oral Exam 1965 Dental Prophylaxis 1963 Dental X-Ray: Bitewings 1963 Dental X-Ray: Full Mouth 1963 [facility]Medic[facility] Annual Wellness (AWV) 1965 [facility]-Infant/Child/Adol SDOH Screenings 1963 Diabetes: Dental Exam 1973 [facility]- SDOH Screenings 1981 [facility]-Adult SDOH Screenings 1981 [facility]-Hepatitis A Vaccines (1 of 2 - Risk 2-dose series) 1982 [facility]-Pap Smear 1984 [facility]-Cervical Cancer Screening 1993 [facility]-HPV/Cotest 1993 [facility]-Breast Cancer Screening 2013 [facility]-Zoster Vaccines (1 of 2) 2013 [facility]-Diabetes: Hemoglobin A1C 02/19/2024 11/20/2023 [facility]-MFNNA-01 Vaccine (3 - 2023- season) 2024 02/24/2021, 01/27/2021 [facility]-Depression Screening 12/07/2024 12/07/2023 [facility]-DTaP,Tdap,and Td Vaccines (3 - Td or Tdap) 12/15/2034 12/15/2024, 04/03/2023 [facility]-HIB Vaccines Aged Out 12/30/2018 No longer e ligible based on patient's age to complete this topic [facility]-Pneumococcal Vaccine: 50+ Years Completed 09/28/2023, 03/03/2019, 12/30/2018 [facility]-RSV Vaccine: 60+ Years or Completed 09/28/2023 [facility]-Influenza Vaccine Completed 08/16/2024 , 08/19/2022, 07/24/2021, Additional history exists [facility]-HIV Screening Completed 12/15/2024 [facility]-Hepatitis C Screening Completed 12/15/2024 [facility]-Obesity Intervention Completed 025, 12/08/2023, 12/07/2023, Additional history exists HPV Vaccines Aged Out No longer eligi ble based on patient's age to complete this topic [facility]-IPV Vaccines Aged Out No longer e ligible based on patient's age to complete this topic [facility]-Rotavirus Vaccines Aged Out No lo nger eligible based on patient's age to complete this topic Procedures Procedure Name Priority Date/Time Associated Diagnosis Comments HEPATITIS C ANTIBODY - ED W/REFLEX TO HCV QUANT PCR STAT 12/15/2024 8:10 PM EST ED HIV 1/2 ANTIBODY/ANTIGEN SCREEN WITH REFLEX TO HIV I/II DIFFERENTIATION STAT 12/15/2024 8:10 PM EST HEMOGLOBIN A1C Routine 11/20/2023 2:15 AM EST from Last 3 Months or Most Recently Relevant to Health Maintenance Results * ED HIV 1/2 Antibody/Antigen Screen w/Reflex to HIV 1/2 Differentiation (12/15/2024 8:10 PM EST) Pathologist [facility] HIV 1 & 2 Antibody/Antigen Screen Non Reactive Non Reactive 12/15/2024 9:33 PM EST [facility] Comment:Screening for HIV 1 & 2 antibodies, and P24 antigen is NONREACTIVE. No confirmatory testing is required. Blood Venous blood specimen / Unknown Venipuncture / Unknown 12/15/2024 8:10 PM EST 12/15/2024 8:52 PM EST Elijah Negron MD LAB BLOOD ORDERABLES Final Result Performing Organization Address City/[facility]/ZIP Co de Phone Number [facility] [address] [place] [address] * Hepatitis C Antibody - ED (12/15/2024 8:10 PM EST) Pathologist [facility] Hepatitis C Antibody Negative Negative 12/15/2024 9:33 PM EST [facility] Blood Venous blood specimen / Unknown Venipuncture / Unknown 12/15/2024 8:10 PM EST 12/15/2024 8:52 PM EST Elijah Negron MD LAB BLOOD ORDERABLES Final Result Performing Organization Address City/[facility] Co de Phone Number [facility] [address] [place] [address] * (ABNORMAL) Hemoglobin A1c (11/20/2023 2:15 AM EST) Pathologist [facility] Hemoglobin A1c 7.1(H) <5.7 % 11/20/2023 4:00 AM EST [facility] Blood Venous blood specimen / Unknown Venipuncture / Unknown 11/20/2023 2:15 AM EST 11/20/2023 2:22 AM EST Narrative [facility] - 11/20/2023 4:00 AM EST HA1C Interpretive Data: Diagnosis of Diabetes: Diabetic > or = 6.5% Pre-diabetic 5.7 to 6.4% Non-diabetic < or = 5.6% Glycemic Targets for Type I and Type II Diabetics: Non- Adults <7.0% Adults <6.0% Children and Adolescents <7.5% Source: [place] [employer]. Standards of medical care in diabetes,2017. Diabetes Care.2017:40 (suppl 1):S1-S135. HbA1c assay performed by an ion-exchange chromatography method that is certified traceable to the DCCT. us Alannah Yeison Conti FISH CONSERVATIONIST LAB BLOOD ORDERABLES Final Re sult [facility] [address] [place] [address] from Last 3 Months or Most Recently Relevant to Health Maintenance Insurance [facility] MEDICARE Advance Directives * Full Code (Latest Code Status on File) Date Activated Date Inactivated Comments 11/18/2023 5:56 PM 11/24/2023 4:04 PM Question Answer Comments Patient has decision-making capacity? Yes Care Teams Yard Pipe Grader Relationship Specialty Start Date End Date Reji Castro MD [address] [place] [id number] PCP - General Internal Medicine 12/08/23
--- OUTSIDE RECORDS SUMMARY | 2025-05-03 08:53 | XMS_ITS | Encounter Summary ---
Author Organization [employer] Address [address] [place] [address] Care Team Providers Care Police Specialist Name Role Phone Reji Castro MD Primary Care Provider [phone] Encounter Details Date Type Department Care Team (Late st Contact Info) Description 08/18/2021 Transcribed Document [facility] [place] Family Medicine [facility] [place] [address] ProviderDelvin MD [address] [place] [id number] Social History Tobacco Use Types Packs/Day Years Used Date Smoking Tobacco: Never Assessed Comments Unknown Sex and Gender Information Value Date Recorded Sex Assigned at Not on file Legal Sex Female 4:32 PM CDT Gender Identity Not on file Sexual Orientation Not on file documented as of this encounter Miscellaneous Notes * Cerner Conversion Note - Delvin Celestin MD - 08/18/2021 3:44 PM CDT On Going Discharge Planning Entered On: 08/18/2021 15:47 EDT Performed On: 08/18/2021 15:44 EDT by MADINA LOVETT, RN - Annual Greenhouse ManagerLime Filter Operator Progress Note Discharge Arrangements : Patient [...] you Attend Multidisciplinary Rounds? : Yes MADINA LOVETT, RN - Annual Greenhouse Manager - 08/18/2021 15:44 EDT Narrative Progress Note Narrative Progress Note [...] will need home health and lives in [place]. [facility] is a possibility. CM will continue to follow. DCP: Historical Progress Note : (late entry from 08/15-) [...] and send referrals as appropriate. JULIO STEWART, RN-Annual Greenhouse Manager ED - 08/18/21 10:38:39 MADINA LOVETT, JEREMIAH - Annual Greenhouse Manager - 08/18/2021 15:44 EDT documented in this encounter Plan of Treatment Not on file documented as of this encounter Visit Diagnoses Not on filedocumented in this encounter Care Teams Police Specialist Relationship Specialty Start Date End Date Reji Castro MD [address] [place] [id number] PCP - General Adolescent Medicine 10/02/22 documented as of this encounter
--- OUTSIDE RECORDS SUMMARY | 2025-05-03 08:53 | XMS_ITS | Encounter Summary ---
Author Organization [employer] Address [address] [place] [address] Care Team Providers Care Cardiovascular Sonographer Name Role Phone Reji Castro MD Primary Care Provider + [phone] Encounter Details Date Type Department Care Team (Late st Contact Info) Description 08/13/2021 Transcribed Document [facility] [place] [facility] [place] [address] ProviderDelvin MD [facility] [place] [address] Social History Tobacco Use Types Packs/Day Years Used Date Smoking Tobacco: Never Assessed Comments Unknown Sex and Gender Information Value Date Recorded Sex Assigned at Not on file Legal Sex Female 4:32 PM CDT Gender Identity Not on file Sexual Orientation Not on file documented as of this encounter Miscellaneous Notes * Cerner Conversion Note - Delvin Celestin MD - 08/13/2021 2:50 PM CDT Patient: IRINA TAMAYO Age: 56 [...] her port could not be accessed. Her community engagement specialist aspirated fluid from the port that was evidently purulent. I have not yet been able to track down that culture. After the aspiration she developed fever to 103, severe CHEUNG, myalgias and arthralgias. She was admitted to [facility]. She was in the hospital [...] antibiotics. On 08/08 she presented to a [facility] after she developed severe CHEUNG and myalgias w/o prominent fever. She was subsequently contacted and told to report to [facility] because she had + blood cutures concerning for an infected portacath +/- PVE. I contacted the micro lab at [facility] and was told that she did [...] port removal tomorrow. 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 Review of Systems ROS reviewed as documented in chart Health Status Current medications: (Selected) Inpatient Medications Ordered ALPRAZolam: 0.5 mg, Oral, TID, PRN: Anxiety CeleXA: 40 mg, Oral, Daily Coumadin: 6 mg, Oral, Daily DAPTOmycin + Sodium Chloride 0.9% intravenous solution 50 mL: 700 mg, 14 mL, 128 mL/Hr, IV Piggyback, [id number] Dextrose 50% injection: 12.5 Gram, IV Push, Q15Min, PRN: Other (See Comment) Dextrose 50% injection: 25 Gram, IV Push, Q15Min, PRN: Other (See Comment) Dextrose 50% injection: 25 Gram, IV Push, Q15Min, PRN: Other (See Comment) Dextrose 50% injection: 25 Gram, IV Push, Q15Min, PRN: Other (See Comment) Phenergan: 12.5 mg, IV Push, Q6H, PRN: Nausea Sodium Chloride 0.9% bolus: 500 mL, 500 [...] Premix Diluent 250 mL: Titrate, IntraVENous, Stop: 08/13/21 23:59:00 EDT hydrALAZINE: 10 mg, IV Push, Q4H, PRN: Hypertension insulin lispro sliding scale: Scale C:, SubCutaneous, AC and at Bedtime ketotifen ophthalmic: 1 Drop, Eyes Both, BID labetalol: 10 mg, IV Push, Q4H, PRN: Hypertension lactobacillus acidophilus: 1 Cap, Oral, Daily levothyroxine: 25 mcg, Oral, Daily ondansetron: 4 mg, IV Push, Q4H, PRN: Nausea pantoprazole: 40 mg, Oral, Daily traMADol: 50 [...] 1 Cap, Oral, Daily, takes with dinner Tousilva SoloStar 300 units/mL subcutaneous solution: 80 Units, [...] Charted Minimum Maximum Temp 97.8 (AUG 13 10:00) 97.8 (AUG 13 10:00) 98 (AUG 12 23:00) Mon HR 81 (AUG 13 10:00) 50 (AUG 12 15:00) 82 (AUG 12 23:00) Resp Rate 18 (AUG 13 10:00) 18 (AUG 12 18:30) 18 (AUG 12 18:30) SBP 99 (AUG 13 10:00) L 86 (AUG 12 15:00) 113 (AUG 13 06:00) DBP L 59 (AUG 13 10:00) L 47 (AUG 12 15:00) 75 (AUG 13 06:00) MAP 70 (AUG 13 10:00) 55 (AUG 12 15:00) 91 (AUG 13 [...] tenderness, No swelling, No deformity. Integumentary: Warm, [place]. Neurologic: Alert, Oriented, No focal deficits. Psychiatric: Cooperative, Appropriate mood & affect. Review / Management Results review: Labs (Last four charted values) WBC 5.5 (SEP 22) 5.0 (SEP 21) 4.7 (SEP 21) 6.7 (SEP 21) HB L 8.5 (SEP 22) L 8.5 (SEP 21) L 8.8 (SEP 21) L 8.7 (SEP 21) HCT L 28.7 (SEP 22) L 28.4 (SEP 21) L 28.8 (SEP 21) L 28.3 (SEP 21) Plt 197 (SEP 22) 212 (SEP 21) 206 (SEP 21) 201 (SEP 21) Na 136 (SEP ) L 134 (SEP ) L 131 (SEP 20) K 4.5 (SEP 22) 3.6 (SEP ) 4.1 (SEP 20) Cl 103 (SEP 22) L 98 (SEP ) L 96 (SEP 20) CO2 30 (AUG 13) 29 (SEP ) 26 (SEP 20) BUN H 50 (JUL 22) H 69 (SEP ) H 70 (SEP 20) Cr H 1.60 (SEP 22) H 2.40 (SEP 21) H 2.50 (SEP 20) Glu R 102 (AUG 13) H 134 (SEP ) 87 (SEP 20) Ca 9.1 (SEP 22) 9.6 (SEP 21) 10.0 (SEP 20) Lactic .93 (SEP 21) L .73 (SEP 20) PT H 16.3 (JUL 22) H 17.5 (SEP 21) H 17.1 (JUL 21) H 18.9 (SEP 20) INR H 1.6 (JUL 22) H 1.7 (SEP 21) H 1.6 (SEP 21) H 1.8 (SEP 20) PTT H 39.6 (SEP 20) AST 17 (SEP 22) 16 (SEP 21) 18 (SEP 20) ALT 19 (SEP 22) 23 (SEP 21) 25 (SEP 20) ALK P 102 (SEP 22) 110 (SEP 21) 128 (SEP 20) T Bili 0.5 (SEP 22) 0.6 (SEP 21) 0.7 (SEP 20) PTN 6.9 (SEP 22) 7.6 (SEP 21) H 8.7 (SEP 20) ALB 3.9 (SEP 22) 3.9 (SEP 21) 4.4 (AUG 11) Lipase 224 (AUG 13) [...] endocarditis -- MVR 2005 -- Portacath placement 2017 -- Autoimmune hemolytic anemia requiring frequent transfusions -- Acute on CKD- stage 2 per patient although based on recent creatinine it may be higher -- Nephrolthiasis and multiple urologic surgeries -- COPd -- Remote tobacco abuse RECOMMENDATIONS -- cefazolin and daptomycin while blood cultures are pending -- portacath removal scheduled for 08/14 -- continue antibiotics via peripheral IV until new portacath can be placed 08/18 -- if 08/11 blood cultures remain negative I recommend parenteral antibiotics to 09/08 to complete 4 weeks therapy. It the 08/11 blood cultures turn + I would recommend therapy to 09/22 Electronically signed by [facility] Conversion Film Tests Checker Cerner at 03/09/2023 8:46 PM CDT documented in this encounter Plan of Treatment Not on file documented as of this encounter Visit Diagnoses Not on filedocumented in this encounter Care Teams Cardiovascular Sonographer Relationship Specialty Start Date End Date Reji Castro MD [address] [place] [id number] PCP - General Adolescent Medicine 10/02/22 documented as of this encounter
--- OUTSIDE RECORDS SUMMARY | 2025-05-03 08:53 | XMS_ITS | Encounter Summary ---
Author Organization [employer] Address [address] [place] [address] Care Team Providers Care Talkback Host Name Role Phone Reji Castro MD Primary Care Provider [phone] Encounter Details Date Type Department Care Team (Late st Contact Info) Description 08/17/2021 Transcribed Document [facility] [place] [facility] [place] [address] ProviderDelvin MD [address] [place] [id number] Social History Tobacco Use Types Packs/Day Years Used Date Smoking Tobacco: Never Assessed Comments Unknown Sex and Gender Information Value Date Recorded Sex Assigned at Not on file Legal Sex Female 4:32 PM CDT Gender Identity Not on file Sexual Orientation Not on file documented as of this encounter Miscellaneous Notes * Cerner Conversion Note - Delvin Celestin MD - 08/17/2021 3:29 PM CDT Patient: IRINA TAMAYO Age: 56 years Sex: Female : 1965 Associated Diagnoses: None Author: Andrea Moraes, Resident Pharmacist Pharmacy Consult - Warfarin HPI: 56 y/o F presenting to [facility] with history of COPD, [...] mg, 14 mL, 128 mL/Hr, IV Piggyback, [id number]. diphenhydrAMINE: 50 mg, IV Push, On-CALL, PRN: [...] Last Charted Minimum Maximum Temp 97.9 (AUG 17:) 97.9 (AUG 17:) 98 (AUG 16 18:52) Apical HR 83 (AUG 16 21:41) 83 (AUG 16 21:41) 83 (AUG 16 21:41) Mon HR 68 (AUG 17:15) 68 (AUG 17 11:15) 93 (AUG 17 03:45) Resp Rate 16 (AUG 17:15) 16 (AUG 17 03:45) 16 (AUG 17 03:45) SBP 106 (AUG 17:15) 100 (AUG 17 03:45) 128 (AUG 16 18:52) DBP 64 (AUG 17:15) L 55 (AUG 17 05:21) 75 (AUG 16 18:52) MAP 78 (AUG 17 11:15) 74 (AUG 17 05:21) 91 (AUG 16 18:52) SpO2 L 90 (AUG 17:15) L 90 (AUG 17 11:15) 96 (AUG 17 05:21) Labs (Last four charted values) WBC 6.4 (AUG 17) 7.1 (AUG 15) 6.7 (AUG 14) 5.5 (AUG 13) HB L 7.5 (AUG 17) L 7.5 (SEP 25) L 7.9 (SEP 24) L 8.0 (SEP 23) HCT L 25.4 (SEP 26) L 25.9 (SEP 25) L 26.7 (SEP 24) L 27.2 (SEP 23) Plt 195 (SEP 26) 197 (SEP 24) 210 (SEP 23) 206 (SEP 22) Na L 135 (SEP 26) 137 (SEP 25) 137 (SEP 24) L 135 (SEP 22) K 4.4 (AUG 17) 4.4 (SEP 25) 4.4 (SEP 24) 4.2 (SEP 22) Cl 104 (AUG 17) 106 (JUL 25) 104 (JUL 24) 102 (JUL 22) CO2 27 (AUG 17) 25 (JUL 25) 27 (JUL 24) 29 (AUG 13) BUN 18 (AUG 17) H 23 (AUG 16) H 28 (JUL 24) H 35 (AUG 13) Cr H 1.20 (AUG 17) H 1.40 (AUG 16) H 1.80 (JUL 24) H 1.80 (AUG 13) Glu R H 126 (AUG 17) H 112 (AUG 16) H 139 (JUL 24) H 114 (AUG 13) Ca 8.9 (AUG 17) 9.5 (JUL 25) 9.4 (JUL 24) 9.1 (JUL 22) Lactic .93 (SEP ) L .73 (JUL 20) PT H 14.6 (AUG 17) H 17.2 (JUL 25) H 18.2 (JUL 24) H 17.2 (JUL 23) INR H 1.4 (AUG 17) H 1.7 (AUG 16) H 1.8 (JUL 24) H 1.7 (AUG 14) PTT H 39.6 (JUL 20) AST 19 (SEP 24) 18 (SEP 22) 17 (SEP 22) 16 (SEP 21) ALT 17 (SEP 24) 17 (SEP 22) 19 (SEP 22) 23 (SEP 21) ALK P 101 (SEP 24) 102 (SEP 22) 102 (SEP 22) 110 (SEP 21) T Bili 0.4 (SEP 24) 0.4 (SEP 22) 0.5 (SEP 22) 0.6 (SEP 21) PTN 7.0 (SEP 24) 7.3 (SEP 22) 6.9 (SEP 22) 7.6 (SEP 21) ALB 3.5 (SEP 24) 3.8 (SEP 22) 3.9 (AUG 13) 3.9 (AUG 12) Lipase [...] gtt heparin gtt heparin gtt Date 08/18 INR Dose [HOLD] Bridge [heparin gtt] Creatinine Clearance (Current Encounter/Past 24 Hours) Creatinine Level 1.20 mg/dL HI 08/17/2021 09:02 Bun/Creatinine 15.0 08/17/2021 09:02 Estimated Creatinine Clearance 44.13 mL/Min 08/17/2021 09:02 Intake & Output Totals Last 24 Hours (7a-7a) Input Total: 736 mL Output Total: 1850 mL Balance: -1114 mL A/P: 1.) Per Sandeep Holliday MD 08/16 note: Infected Port-A-Cath removed - plan to place new one Wednesday (08/19); hold warfarin + cont. heparin gtt 2.) INR today (08/17) is 1.4, which is subtherapeutic. Plan to continue with [...] questions. Thank you, Andrea Moraes, PharmD PGY1 Blow Torch Burner Pager: [phone], Ext. [phone] documented in this encounter Plan of Treatment Not on file documented as of this encounter Visit Diagnoses Not on filedocumented in this encounter Care Teams Talkback Host Relationship Specialty Start Date End Date Reji Castro MD [address] [place] [address] PCP - General Adolescent Medicine 10/02/22 documented as of this encounter
--- OUTSIDE RECORDS SUMMARY | 2025-05-03 08:53 | XMS_ITS | Encounter Summary ---
Author Organization [employer] Address [address] [place] [address] Care Team Providers Care Commission Broker Name Role Phone Reji Castro MD Primary Care Provider + [phone] Encounter Details Date Type Department Care Team (Late st Contact Info) Description 08/13/2021 Transcribed Document [facility] [place] Family Medicine [facility] [place] [address] ProviderDelvin MD [facility] [place] [address] Social History Tobacco Use Types Packs/Day Years Used Date Smoking Tobacco: Never Assessed Comments Unknown Sex and Gender Information Value Date Recorded Sex Assigned at Not on file Legal Sex Female 4:32 PM CDT Gender Identity Not on file Sexual Orientation Not on file documented as of this encounter Miscellaneous Notes * Cerner Conversion Note - Delvin Celestin MD - 08/13/2021 10:57 AM CDT Patient: IRINA TAMAYO Age: 56 Years Sex: Female : 1965 Chief Complaint Pt presents to the ER reporting she was called for positive blood clutures which showed staph. Pt reports her port is infected. Currently on Omnicef. Pt has a mechanical valve. Has had 180 units of blood due to anemia, [facility] is why she has a port. Reason for Consultation infected port History of Present Illness This patient is a 56 year old female with past medical history of cardiomyopathy with EF 40%, congestive heart failure, rheumatic valve disease s/p mechanical valve replacement in 2005, chronic afib, DMII, CKD, COPD, and autoimmune hemolytic anemia requiring weekly blood transfusions. She has a port-a-cath placed for these transfusions about 3 years ago at [facility]. Last month she developed fever, headache, nausea, and was admitted to [facility]. CHUCHO/TTE at that time showed possible bacteria on the tip of her port. She was treated with PO antibiotics with resolution of symptoms and was discharged home with no plans for port removal. She reports a few days ago she again had headache and nausea, this time without fever. She presented to the emergency department at [facility] with blood cultures drawn which were supposedly positive for staph epi. She was subsequently told to come to [facility] ED for ID consultation. Review of Systems Complete review of systems was performed and negative except as stated in history of present illness Vital Signs T: 36.6 ??C TMIN: 36.4 ??C TMAX: 36.7 ??C HR: 81(Monitored) RR: 18 BP: 113/75 SpO2: 93% Oxygen Settings (Last) Oxygen Therapy Mode: Room air (08/13/21 06:00:00) Oxygen Flow Rate: 2 Liter/Min (08/12/21 05:00:00) Physical Exam General: Alert and oriented, well nourished, no acute distress Neurologic: Awake, alert, and oriented X3 Eye: EOMI, normal conjuctiva HENT: Normocephalic,moist oral mucosa, no scleral icterus Lungs: Clear to auscultation, non-labored respiration Heart: Normal rate, regular rhythm, no murmur, gallop or edema. Port-a-cath in left chest with no erythema or induration. Abdomen: Soft, non-tender, non-distended, normal bowel sounds, no masses Musculoskeletal: Normal range of motion and strength, no tenderness or swelling, Skin: Skin is warm, dry and pink, no rashes or lesions Psychiatric: Cooperative, appropriate mood and affect Assessment/Plan 56 year old female with multiple comorbidities, with port-a-cath used for blood transfusions, who presents with bacteremia thought to be secondary to port-a-cath. Infectious disease has been consulted and recommend port removal. Discussed with patient that she will need a line holiday following removal, she understands. Will plan for port removal tomorrow. NPO midnight. Obtain consent. Hold heparin drip at midnight. COVID screen. 1. Bacteremia 2. Acute kidney injury superimposed on chronic kidney disease, Acute kidney injury 3. CHF with unknown LVEF 4. Atrial fibrillation 5. Diabetes mellitus type II 6. [facility]CI current use of anticoagulant At risk for central venous catheter associated infection Medical screening exam Orders: Communication to Pharmacy Coronavirus 2019 Novel NPO after Midnight Verify Patient Consent Obtained VTE Prophylaxis - Medical Warfarin 6 mg, Oral, Tab, Daily, Routine, Start 08/11/21 20:44:00 EDT, 08/11/21 20:44:00 EDT (REJI GUERRA) Sequential Compression Device Start: 08/11/21 20:26:00 EDT, Bilateral, Length: Knee High, While patient is in bed, Continuous Order (REJI GUERRA) Provider Information Primary Care Physician - DEREK ROBISON PRIM Attending Physician - FAIZA YOUSSEF DO Admitting Physician - VINCE BELLO MD Consulting Physician - LISA RICKETTS MD-INF (bacteremia) Consulting Physician - NIRALI OQUENDO MD (? martínez on ckd) Consulting Physician - CHELI BEASLEY MD-CAR Consulting Physician - Elieser VERNON MD-TATYANA Consulting Physician - NENA PEARSON MD-TATYANA (Pt requested Dr. Pearson specifically)- paula cath infection, needing removal Referring Physician - VINCE BELLO MD Problem List/Past Medical History Ongoing AIHA (autoimmune hemolytic anemia) Amblyopia Anemia, iron [...] disease Historical No qualifying data Procedure/Surgical History Replacement, mitral valve, with cardiopulmonary [...] of Use: 30. Last Used: quit 2005. Family History CAD, DM Diagnostic Results Radiology Results (Last 48 hours) [id number] -- 08/11/2021 21:21 CR Chest 1 Vw [...] replacement.Generalized osteopeniaIMPRESSION:No active disease by portable imaging. Vitals Signs (last 24 hrs) Last Charted Minimum Maximum Temp 97.9 (AUG 13 06:00) 97.9 (AUG 13 06:00) 98 (AUG 12 23:00) Resp Rate 18 (AUG 13 06:00) 18 (AUG 12 14:30) 20 (AUG 12 11:00) SBP 113 (AUG 13 06:00) L 86(AUG 12 15:00) 113 (AUG 13 06:00) DBP 75 (AUG 13 06:00) L 46(AUG 12 11:00) 75 (AUG 13 06:00) SpO2 L 93(AUG 13 06:00) L 93(AUG 13 06:00) 98 (AUG 12 23:00) CBC Results (Current Encounter/Past 24 Hours) WBC 5.5 K/uL 08/13/2021 05:41 Hct 28.7 % LOW 08/13/2021 05:50 Hgb 8.5 g/dL LOW 08/13/2021 05:50 Platelet Count 197 K/uL 08/13/2021 05:41 CMP Results (Current Encounter/Past 24 Hours) Bun/Creatinine 31.2 HI 08/13/2021 06:13 Protein Total 6.9 Gram/dL 08/13/2021 06:13 A/G Ratio 1.3 08/13/2021 06:13 eGFR NonAfrican 33 mL/min/1.73m2 LOW 08/13/2021 06:13 Creatinine Level 1.60 mg/dL HI 08/13/2021 06:13 Globulin 3.0 Gram/dL 08/13/2021 06:13 eGFR 40 mL/min/1.73m2 LOW 08/13/2021 06:13 Sodium Level 136 mmol/L 08/13/2021 06:13 Potassium Level 4.5 mmol/L 08/13/2021 06:13 Chloride Level 103 mmol/L 08/13/2021 06:13 Carbon Dioxide Level 30 mmol/L 08/13/2021 06:13 Anion Gap 8 LOW 08/13/2021 06:13 Alk Phos 102 Units/Liter 08/13/2021 06:13 ALT 19 Units/Liter 08/13/2021 06:13 AST 17 Units/Liter 08/13/2021 06:13 Blood Urea Nitrogen 50 mg/dL ND 08/13/2021 06:13 Glucose Level 102 mg/dL 08/13/2021 06:13 Albumin Level 3.9 Gram/dL 08/13/2021 06:13 Bilirubin Total 0.5 mg/dL 08/13/2021 06:13 Calcium Level 9.1 mg/dL 08/13/2021 06:13 Electronically signed by [facility] Conversion Rehabilitation Services Counselor Cerner at 03/09/2023 8:43 PM CDT documented in this encounter Plan of Treatment Not on file documented as of this encounter Visit Diagnoses Not on filedocumented in this encounter Care Teams Commission Broker Relationship Specialty Start Date End Date Reji Castro MD [address] [place] [id number] PCP - General Adolescent Medicine 10/02/22 documented as of this encounter
--- OUTSIDE RECORDS SUMMARY | 2025-05-03 08:53 | XMS_ITS | Encounter Summary ---
Author Organization [employer] Address [address] [place] [address] Care Team Providers Care Marketing Secretary Name Role Phone Reji Castro MD Primary Care Provider + [phone] Encounter Details Date Type Department Care Team (Late st Contact Info) Description 08/18/2021 Transcribed Document [facility] [place] [facility] [place] [address] ProviderDelvin MD [address] [place] [id number] Social History Tobacco Use Types Packs/Day Years Used Date Smoking Tobacco: Never Assessed Comments Unknown Sex and Gender Information Value Date Recorded Sex Assigned at Not on file Legal Sex Female 4:32 PM CDT Gender Identity Not on file Sexual Orientation Not on file documented as of this encounter Miscellaneous Notes * Cerner Conversion Note - Delvin Celestin MD - 08/18/2021 3:51 PM CDT Patient: IRINA TAMAYO Age: [...] renal function cr 1.6mg/dl. , Today's Information: Stable. Pt c/o edema to bilateral hands and lower extremity. Pt to have port-a-cath replaced tomorrow. . Review of Systems Constitutional: Weakness, No fever, No chills. Respiratory: No shortness [...] 1 Gram, 200 mL/Hr, IV Piggyback, Q8HInt cefTRIAXone: 2 Gram, [...] Tab, 0 Refill(s), Medications (36) Active Scheduled: (14) aspirin 81 mg chew tab 81 mg 1 Tab, Oral, Daily ceFAZolin + NaCl 0.9% 100 mL 1 Gram, IV Piggyback, Q8HInt cefTRIAXone [...] History of obstructive sleep apnea / IMO [id number] / Confirmed Bioprosthetic mitral valve replacement / SNOMED CT 970892852 / Confirmed Chronic kidney disease / SNOMED CT 2634270927 / Confirmed COPD - Chronic obstructive pulmonary disease / SNOMED CT 481931506 / Confirmed HTN - Hypertension / SNOMED CT 0074774739 / Confirmed HLD - Hyperlipidemia / SNOMED CT 997133871 / Confirmed Amblyopia / SNOMED CT 5632850111 / Confirmed 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 / SNOMED CT 021364549 / Confirmed Myocardial infarction / SNOMED CT 78651210 / Confirmed Atrial fibrillation / SNOMED CT 77317542 / Confirmed GERD - Gastro-esophageal reflux disease / SNOMED CT 6876396386 / Confirmed Diverticulosis / SNOMED CT 6156344453 / Confirmed Hepatomegaly / SNOMED CT 699506067 / Confirmed Renal calculus / SNOMED CT 727357771 / Confirmed Ovarian cyst / SNOMED CT 057583987 / Confirmed Arthritis / SNOMED CT 3696668 / Confirmed Back pain / PNED [id number] / Confirmed Fibromyalgia / SNOMED CT 86494196 / Confirmed Restless legs syndrome / SNOMED CT 32090083 / Confirmed Diabetes mellitus type II / SNOMED CT 36330893 / Confirmed Thyroid disease / SNOMED CT 126591690 / Confirmed Edema / SNOMED CT 739040242 / Confirmed BLE neuropathy hands and feet / Confirmed frequent headache / Confirmed AIHA (autoimmune hemolytic anemia) / SNOMED CT 1673900838 / Confirmed, Active Problems (25) AIHA (autoimmune hemolytic anemia) [...] Hours (7a-7a) Intake (13 Events) Continuous Infusions (408 mL) Medications (400 mL) Oral Intake (997 mL) Output (4 Events) Urine Voided (Volume) (1550 mL) Input Total: 1805 mL Output Total: 1550 mL Balance: 255 mL , Weight (Daily) No Qualifying Routine Weight Events VS/Measurements Vital Signs/Vital Measures 08/18/2021 8:00 EDT Oxygen Therapy Mode Room air 08/18/2021 6:29 EDT Systolic Blood Pressure 105 mmHg Diastolic Blood Pressure 53 mmHg LOW Mean Arterial Pressure (MAP)-BMDI 77 Temperature Source Oral Temperature Mode Fahrenheit Temperature, Fahrenheit 98.1 Deg F Clinical Temperature, C 36.7 Deg C Heart Rate Monitored 63 bpm Respiratory Rate 18 Breaths/Min Oxygen Saturation 95 % 08/18/2021 2:02 EDT Systolic Blood Pressure 107 mmHg Diastolic Blood Pressure 59 mmHg LOW Mean Arterial Pressure (MAP)-BMDI 74 Temperature, Fahrenheit 98.4 Deg F Clinical Temperature, C 36.9 Deg C Heart Rate Monitored 77 bpm Respiratory Rate 16 Breaths/Min Oxygen Saturation 90 % LOW 08/17/2021 22:27 EDT Systolic Blood Pressure 101 mmHg Diastolic Blood Pressure 61 mmHg Mean Arterial Pressure (MAP)-BMDI 78 Temperature Source Oral Temperature Mode Fahrenheit Temperature, Fahrenheit 98.2 Deg F Clinical Temperature, C 36.8 Deg C Heart Rate Monitored 78 bpm Respiratory Rate 16 Breaths/Min Oxygen Saturation 93 % LOW 08/17/2021 22:00 EDT Oxygen Therapy Mode Room air 08/17/2021 20:10 EDT Heart Rate, Apical 75 bpm 08/17/2021 18:12 EDT Systolic Blood Pressure 106 mmHg Diastolic Blood Pressure 45 mmHg LOW Mean Arterial Pressure (MAP)-BMDI 70 Temperature, Fahrenheit 97.8 Deg F Clinical Temperature, C 36.6 Deg C Heart Rate Monitored 84 bpm Oxygen Saturation 93 % LOW 08/17/2021 15:29 EDT Temperature Source Oral Temperature Mode Fahrenheit 08/17/2021 11:15 EDT Systolic Blood Pressure 106 mmHg Diastolic Blood Pressure 64 mmHg Mean Arterial Pressure (MAP)-BMDI 78 Temperature, Fahrenheit 97.9 Deg F Clinical Temperature, C 36.6 Deg C Heart Rate Monitored 68 bpm Respiratory Rate 16 Breaths/Min Oxygen Saturation 90 % LOW 08/17/2021 8:00 EDT Oxygen Saturation 96 % Oxygen Therapy Mode Room air 08/17/2021 5:21 EDT Systolic Blood Pressure 101 mmHg Diastolic Blood Pressure 55 mmHg LOW Mean Arterial Pressure (MAP)-BMDI 74 Temperature, Fahrenheit 97.6 Deg F Clinical Temperature, C 36.4 Deg C Heart Rate Monitored 88 bpm Respiratory Rate 16 Breaths/Min Oxygen Saturation 96 % 08/17/2021 3:45 EDT Systolic Blood Pressure 100 mmHg Diastolic Blood Pressure 59 mmHg LOW Mean Arterial Pressure (MAP)-BMDI 75 Temperature Source Oral Temperature Mode Fahrenheit Temperature, Fahrenheit 97.6 Deg F Clinical Temperature, C 36.4 Deg C Heart Rate Monitored 93 bpm Respiratory Rate 16 Breaths/Min Oxygen Saturation 93 % LOW , Vitals Signs (last 24 hrs) Last Charted Minimum Maximum Temp 98.1 (AUG 18:) 97.8 (AUG 17 18:12) 98.2 (AUG 17:) Apical HR 75 (AUG 17 20:10) 75 (AUG 17 20:10) 75 (AUG 17 20:10) Mon HR 63 (AUG 18 06:) 63 (AUG 18 06:) 84 (AUG 17 18:12) Resp Rate 18 (AUG 18:) 16 (AUG 17 22:27) 18 (AUG 18 06:29) SBP 105 (AUG 18 06:) 101 (AUG 17 22:) 107 (AUG 18 02:02) DBP L 53 (AUG 18 06:29) L 45 (AUG 17 18:12) 61 (AUG 17 22:27) MAP 77 (AUG 18 06:29) 70 (AUG 17 18:12) 78 (AUG 17 22:27) SpO2 95 (AUG 18 06:29) L 90 (AUG 18 02:02) 95 (AUG 18 06:29) General: No acute distress. Eye: Extraocular movements are intact. HENT: Normocephalic, Oral mucosa is moist. Neck: Supple, No jugular venous distention. Respiratory: Lungs are clear to auscultation, Symmetrical chest wall expansion. Cardiovascular: Normal rate. Edema: Bilateral, Lower extremity, 2+. Gastrointestinal: Soft, Non-tender, Non-distended. Integumentary: Warm, Dry. Neurologic: Alert, Oriented. Psychiatric: Cooperative, Appropriate mood & affect, Normal judgment. Review / Management Results review: Labs (Last four charted values) WBC 7.0 (AUG 18) 6.4 (AUG 17) 7.1 (AUG 15) 6.7 (AUG 14) HB L 7.7 (AUG 18) L 7.5 (AUG 17) L 7.5 (AUG 16) L 7.9 (JUL 24) HCT L 26.2 (AUG 18) L 25.4 (AUG 17) L 25.9 (JUL 25) L 26.7 (JUL 24) Plt 207 (AUG 18) 195 (AUG 17) 197 (SEP 24) 210 (JUL 23) Na L 134 (AUG 18) L 135 (AUG 17) 137 (JUL 25) 137 (JUL 24) K 4.6 (AUG 18) 4.4 (AUG 17) 4.4 (AUG 16) 4.4 (JUL 24) Cl 105 (AUG 18) 104 (SEP ) 106 (SEP 25) 104 (SEP 24) CO2 28 (AUG 18) 27 (SEP 26) 25 (SEP 25) 27 (SEP 24) BUN 18 (AUG 18) 18 (AUG 17) H 23 (JUL 25) H 28 (JUL 24) Cr H 1.40 (AUG 18) H 1.20 (AUG 17) H 1.40 (JUL 25) H 1.80 (SEP 24) Glu R H 137 (AUG 18) H 126 (AUG 17) H 112 (JUL 25) H 139 (JUL 24) Ca 8.8 (AUG 18) 8.9 (AUG 17) [...] (AUG 11) <0.015 (AUG 11) . AUG 18 06:56 L 134 105 18 / H 137 4.6 28 H 1.40 \ AUG 18 06:56 \ L 7.7 / 7.0 207 / L 26.2 \ Impression and Plan Dx and Plan [...] 1.6mg/dl. Cr on this admit 2.4-2.5mg/dl now >> Cr 1.40 mg/dl Will start home diuretic Bumex 2 mg bid for now; feels very swollen and bloated. Check CK level on daptomycin weekly. Monitor GFR adjust medications. Encourage oral hydration. s/p IV iron documented in this encounter Plan of Treatment Not on file documented as of this encounter Visit Diagnoses Not on filedocumented in this encounter Care Teams Marketing Secretary Relationship Specialty Start Date End Date Reji Castro MD [address] [place] [id number] PCP - General Adolescent Medicine 10/02/22 documented as of this encounter
--- OUTSIDE RECORDS SUMMARY | 2025-05-03 08:53 | XMS_ITS | Encounter Summary ---
Author Organization [employer] Address [address] [place] [address] Care Team Providers Care Metal Casket Maker Name Role Phone Reji Castro MD Primary Care Provider + [phone] Encounter Details Date Type Department Care Team (Late st Contact Info) Description 08/13/2021 Transcribed Document [facility] [place] Family Medicine [facility] [place] [address] ProviderDelvin MD [address] [place] [id number] Social History Tobacco Use Types Packs/Day Years Used Date Smoking Tobacco: Never Assessed Comments Unknown Sex and Gender Information Value Date Recorded Sex Assigned at Not on file Legal Sex Female 4:32 PM CDT Gender Identity Not on file Sexual Orientation Not on file documented as of this encounter Miscellaneous Notes * Cerner Conversion Note - Delvin Celestin MD - 08/13/2021 9:32 AM CDT Patient: IRINA TAMAYO Age: 56 years Sex: Female : 1965 Associated Diagnoses: None Author: Andrea Moraes, Resident Pharmacist Pharmacy Consult - Warfarin HPI: 56 y/o F presenting to [facility] with history of COPD, atrial fibrillation, CKD unknown stage, DMII, chronic anemias, CAD, & mitral valve mechanical valve. Port in left chest resulting positive blood cultures at check up. Pharmacy consulted to dose vancomycin & ABX 2/2 indwelling catheter infection along with warfarin 2/2 atrial fibrillation. Vancomycin now d/c per Dr. Moore. Indication: atrial fibrillation Consulting Provider: Dr. Jaimes - (Dr. Jaime on board) Home Dose: warfarin 6 mg PO qHS INR Goal: 2-3 Bridge Therapy: heparin gtt (08/12 - now) Current Antimicrobials: cefazolin 1 g IV q8h - (08/12 - now) daptomycin 700 mg IV q48h - (08/12 - now) Discontinued Antimicrobials: vancomycin PTD - (08/11 - 08/12) Drug Interactions: - MODERATE: warfarin + any [...] 97.9 (AUG 13 06:00) 98 (AUG 12 23:) Mon HR 81 (AUG 13 06:00) 50 (AUG 12 15:00) 82 (AUG 12 23:00) Resp Rate 18 (AUG 13 06:00) 18 (AUG 12 14:30) 20 (AUG 12 11:00) SBP 113 (AUG 13 06:00) L 86 (AUG 12 15:00) 113 (AUG 13 06:00) DBP 75 (AUG 13 06:00) L 46 (AUG 12 10:00) 75 (AUG 13 06:00) MAP 91 (AUG 13 06:00) 55 (AUG 12 15:00) 91 (AUG 13 06:00) SpO2 L 93 (AUG 13 06:00) L 93 (AUG 13 06:00) 98 (AUG 12 23:00) Labs (Last four charted values) WBC 5.5 (AUG 13) 5.0 (AUG 12) 4.7 (AUG 12) 6.7 (AUG 12) HB L 8.5 (AUG 13) L 8.5 (AUG 12) L 8.8 (AUG 12) L 8.7 (AUG 12) HCT L 28.7 (AUG 13) L 28.4 (AUG 12) L 28.8 (AUG 12) L 28.3 (AUG 12) Plt 197 (AUG 13) 212 (AUG 12) 206 (AUG 12) 201 (AUG 12) Na 136 (AUG 13) L 134 (AUG 12) L 131 (AUG 11) K 4.5 (AUG 13) 3.6 (AUG 12) 4.1 (AUG 11) Cl 103 (AUG 13) L 98 (AUG 12) L 96 (AUG 11) CO2 30 (AUG 13) 29 (AUG 12) 26 (AUG 11) BUN H 50 (AUG 13) H 69 (AUG 12) H 70 (AUG 11) Cr H 1.60 (AUG 13) H 2.40 (AUG 12) H 2.50 (AUG 11) Glu R 102 (AUG 13) H 134 (AUG 12) 87 (AUG 11) Ca 9.1 (AUG 13) 9.6 (AUG 12) [...] Warfarin Trend Date 08/11 08/12 08/13 08/14 INR 1.8 1.7 1.6 Dose NO DOSE 6 mg [6 mg] Creatinine Clearance (Current Encounter/Past 24 Hours) Creatinine Level 1.60 mg/dL LA 08/13/2021 06:13 Bun/Creatinine 31.2 LA 08/13/2021 06:13 Est. CrCl: 61 mL/min Intake & Output Totals Last 24 Hours (7a-7a) Input Total: 4082 mL Output Total: 2500 mL Balance: 1582 mL A/P: 1.) Per Dr. Moore 08/12 note: d/c vancomycin - initiated cefazolin + daptomycin initiated 12/24 CN Staph bacteremia - pharmacy will follow ABX peripherally moving forward; will sign off on vancomycin consult 2.) Per MD note: heparin gtt initiated on 08/12 12/24 subtherapeutic INR - INR today (08/13) still subtherapeutic at 1.6. No changes. 3.) Pt received warfarin 6 mg PO yesterday (08/12) & planned to receive daily moving forward. 4.) Daily PT/INR ordered. Goal INR 2-3. Possible interactions noted above. No major interactions at this time. 5.) Pharmacy will continue to follow & monitor. Please reach out with any questions. Thank you, Andrea Moraes, PharmD PGY1 Securities Dealer Pager: [phone], Ext. [phone] Electronically signed by Lanny [facility] Conversion Certification Technician Cerner at 03/09/2023 8:40 PM CDT documented in this encounter Plan of Treatment Not on file documented as of this encounter Visit Diagnoses Not on filedocumented in this encounter Care Teams Metal Casket Maker Relationship Specialty Start Date End Date Reji Castro MD [address] [place] [id number] PCP - General Adolescent Medicine 10/02/22 documented as of this encounter
--- OUTSIDE RECORDS SUMMARY | 2025-05-03 08:53 | XMS_ITS | Encounter Summary ---
Author Organization [employer] Address [address] [place] [address] Care Team Providers Care Administrative Support Manager Name Role Phone Reji Castro MD Primary Care Provider [phone] Encounter Details Date Type Department Care Team (Late st Contact Info) Description 08/23/2021 Transcribed Document [facility] [place] Family Medicine [address] [place] [address] ProviderDelvin MD [address] [place] [address] Social History Tobacco Use Types Packs/Day Years Used Date Smoking Tobacco: Never Assessed Comments Unknown Sex and Gender Information Value Date Recorded Sex Assigned at Not on file Legal Sex Female 4:32 PM CDT Gender Identity Not on file Sexual Orientation Not on file documented as of this encounter Miscellaneous Notes * Cerner Conversion Note - Delvin ProviderMD - 08/23/2021 5:00 PM CDT Chart Check - Review Order Profile Entered On: 08/23/2021 18:48 EDT Performed On: 08/23/2021 17:00 EDT by BRISEIDA PLASCENCIA LPN Chart Check Power[employer] Initiated/Discontinued as Appropriate : Yes All Active Orders Reviewed : Yes BRISEIDA PLASCENCIA LPN - 08/23/2021 18:47 EDT Electronically signed by Lanny [facility] Conversion Millwright Apprentice Cerner at 03/09/2023 8:57 PM CDT documented in this encounter Plan of Treatment Not on file documented as of this encounter Visit Diagnoses Not on filedocumented in this encounter Care Teams Administrative Support Manager Relationship Specialty Start Date End Date Reji Castro MD [address] [place] [id number] PCP - General Adolescent Medicine 10/02/22 documented as of this encounter
--- OUTSIDE RECORDS SUMMARY | 2025-05-03 08:53 | XMS_ITS | Encounter Summary ---
Author Organization [employer] Address [address] [place] [address] Care Team Providers Care Dispatcher Ship Pilot Name Role Phone Reji Castro MD Primary Care Provider + [phone] Encounter Details Date Type Department Care Team (Late st Contact Info) Description 08/17/2021 Transcribed Document [facility] [place] Family Medicine [facility] [place] [address] ProviderDelvin MD [facility] [place] [address] Social History Tobacco Use Types Packs/Day Years Used Date Smoking Tobacco: Never Assessed Comments Unknown Sex and Gender Information Value Date Recorded Sex Assigned at Not on file Legal Sex Female 4:32 PM CDT Gender Identity Not on file Sexual Orientation Not on file documented as of this encounter Miscellaneous Notes * Cerner Conversion Note - Delvin Celestin MD - 08/17/2021 3:38 PM CDT Patient: IRINA TAMAYO Age: 56 [...] her port could not be accessed. Her culinary instructor aspirated fluid from the port that was evidently purulent. I have not yet been able to track down that culture. After the aspiration she developed fever to 103, severe CHEUNG, myalgias and arthralgias. She was admitted to [facility]. She was in the hospital for 10 [...] antibiotics. On 08/08 she presented to a [facility] after she developed severe CHEUNG and myalgias w/o prominent fever. She was subsequently contacted and told to report to [facility] because she had + blood cutures concerning for an infected portacath +/- PVE. 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 Review of Systems ROS reviewed as documented in chart Health Status Current medications: (Selected) Inpatient Medications Ordered ALPRAZolam: 0.5 mg, Oral, TID, PRN: Anxiety CeleXA: 40 mg, Oral, Daily DAPTOmycin + Sodium Chloride 0.9% intravenous solution 50 mL: 700 mg, 14 mL, 128 mL/Hr, IV Piggyback, [id number] Dextrose 50% injection: 12.5 Gram, IV Push, [...] Maximum Temp 97.9 (AUG 17:) 97.9 (AUG 17:15) 98 (AUG 16 18:52) Apical HR 83 (AUG 16 21:41) 83 (AUG 16 21:41) 83 (AUG 16 21:41) Mon HR 68 (AUG 17:) 68 (AUG 17 11:15) 93 (AUG 17 03:45) Resp Rate 16 (AUG 17:) 16 (AUG 17 03:45) 16 (AUG 17 03:45) SBP 106 (AUG 17 11:15) 100 (AUG 17 03:45) 128 (AUG 16 18:52) DBP 64 (AUG 17:15) L 55 (AUG 17 05:21) 75 (AUG 16 18:52) MAP 78 (AUG 17 11:15) 74 (AUG 17 05:21) 91 (AUG 16 18:52) SpO2 L 90 (AUG 17 11:15) L 90 (AUG 17 11:15) 96 (AUG 17 05:21) General: Alert and [...] tenderness, No swelling, No deformity. Integumentary: Warm, [place]. Neurologic: Alert, Oriented, No focal deficits. Psychiatric: Cooperative, Appropriate mood & affect. Review / Management Results review: Labs (Last four charted values) WBC 6.4 (AUG 17) 7.1 (AUG 15) 6.7 (AUG 14) 5.5 (AUG 13) HB L 7.5 (AUG 17) L 7.5 (AUG 16) L 7.9 (AUG 15) L 8.0 (AUG 14) HCT L 25.4 (AUG 17) L 25.9 (JUL 25) L 26.7 (SEP 24) L 27.2 (SEP 23) Plt 195 (SEP ) 197 (SEP 24) 210 (SEP 23) 206 (SEP 22) Na L 135 (SEP ) 137 (SEP 25) 137 (SEP 24) L 135 (SEP 22) K 4.4 (SEP ) 4.4 (SEP 25) 4.4 (SEP 24) 4.2 (SEP 22) Cl 104 (SEP ) 106 (SEP 25) 104 (SEP 24) 102 (JUL 22) CO2 27 (SEP ) 25 (SEP 25) 27 (SEP 24) 29 (SEP 22) BUN 18 (AUG 17) H 23 (SEP 25) H 28 (SEP 24) H 35 (SEP 22) Cr H 1.20 (AUG 17) H 1.40 (SEP 25) H 1.80 (JUL 24) H 1.80 (SEP 22) Glu R H 126 (AUG 17) H 112 (SEP 25) H 139 (SEP 24) H 114 (SEP 22) Ca 8.9 (AUG 17) 9.5 (SEP 25) 9.4 (SEP 24) 9.1 (SEP 22) Lactic .93 (AUG 12) L .73 (AUG 11) PT H 14.6 (AUG 17) H 17.2 (AUG 16) H 18.2 (JUL 24) H 17.2 (AUG 14) INR H 1.4 (AUG 17) H 1.7 (AUG 16) H 1.8 (JUL 24) H 1.7 (AUG 14) PTT H 39.6 (AUG 11) AST 19 (JUL 24) 18 (SEP 22) 17 (SEP ) 16 (AUG 12) ALT 17 (AUG 15) 17 (AUG 13) 19 (AUG 13) 23 (AUG 12) ALK P 101 (JUL 24) 102 (SEP 22) 102 (JUL 22) 110 (AUG 12) T Bili 0.4 (AUG 15) 0.4 (AUG 13) 0.5 (AUG 13) 0.6 (AUG 12) PTN 7.0 (AUG 15) 7.3 (AUG 13) 6.9 (AUG 13) 7.6 (AUG 12) ALB 3.5 (JUL 24) 3.8 (SEP ) 3.9 (AUG 13) 3.9 (AUG 12) Lipase 224 (AUG 13) Troponin <0.015 (AUG 12) <0.015 (SEP 20) <0.015 (AUG 11) . Impression and [...] portacath can be placed 08/19 -- Since cath tip culture negative, I plan to discharge on rocephin 2g daily to 09/08 -- if 08/11 blood cultures remain negative I recommend parenteral antibiotics to 09/08 to complete 4 weeks therapy. It the 08/11 blood cultures turn + I would recommend therapy to 09/22 UR: rocephin 2g daily to 09/08; weekly cbc and cmp; routine care of paula cath Electronically signed by Lanny, [facility] Conversion Steel Rule Inspector Cerner at 03/09/2023 8:42 PM CDT documented in this encounter Plan of Treatment Not on file documented as of this encounter Visit Diagnoses Not on filedocumented in this encounter Care Teams Dispatcher Ship Pilot Relationship Specialty Start Date End Date Reji Castro MD [address] [place] [id number] PCP - General Adolescent Medicine 10/02/22 documented as of this encounter
--- OUTSIDE RECORDS SUMMARY | 2025-05-03 08:53 | XMS_ITS | Clinical Summary ---
Author Organization [facility] Address [address] [facility] [address] [place] [address] Phone Care Team Providers Care Meteorology Faculty Member Name Role Phone Joan Moore MD [ ] Conditions or Problems Problem Name Problem Code Onset Date Status Entry Date Provider Comment Standard Description Annotate Bloodstream infection due to port, subsequent encounter(s) T80.211D (ICD-10-CM) Active 0 Lisa Torres Bloodstream infection due to central venous catheter, subsequent encounter Coag-negative staph sepsis/septic meia A41.1 (ICD-10-CM) Active 0 Lisa Torres Sepsis due to other specified staphylococcus Autoimmune hemolytic anemia, unspecified 774031091 (SNOMED CT) Active 0 Lisa Torres Autoimmune hemolytic anemia COPD 55448805 (SNOMED CT) Active 0 Lisa Torres Chronic obstructive pulmonary disease Presence of prosthetic heart valve Z95.2 (ICD-10-CM) Active 0 Lisa Torres Presence of prosthetic heart valve HTN CKD, bgn, 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) 1401209 (SNOMED CT) Active 0 Lisa Torres Benign essential hypertension Medications Medication Instructions Start Date Stop Date Generic Name [facility] Provider CEFTRIAXONE SODIUM 1 GM SOLR 2gm IV Q 24hrs through 09/08 [facility] [id number] ceftriaxone [id number] [place] LEVOTHYROXINE SODIUM 25 MCG TABS TAKE 1 TABLET BY MOUTH DAILY levothyroxine 31843507791 Belkis Mattson BUMETANIDE 2 MG TABS bumetanide 28614857862 Belkis Mattson DEXILANT 60 MG CPDR dexlansoprazole 32348702581 Belkis Mattson OLOPATADINE HCL 0.2 % SOLN olopatadine 57911660097 Belkis Mattson ALPRAZOLAM 0.5 MG TABS alprazolam 81035457821 Belkis Mattson WARFARIN SODIUM 4 MG TABS warfarin 87255860033 Belkis Mattson SPIRONOLACTONE 25 MG TABS TAKE 1 TABLET BY MOUTH ONCE A DAY. spironolactone 24454172647 Belkis Mattson FOLIC ACID 1 MG TABS TAKE 1 TABLET BY MOUTH ONCE A DAY. folic acid 98786249847 Belkis Mattson RAMY ASPIRIN EC LOW DOSE 81 MG TBEC aspirin 15400021899 Belkis Mattson CELEXA 40 MG TABS citalopram 21067745143 Belkis Mattson docusate sodium unspecified unspecified docusate sodium 06571900975 Angelita Mattson FAMOTIDINE 20 MG TABS famotidine 34634043308 Belkis Mattson PERCOCET 10-325 MG TABS oxycodone-acetam i nophen 11933936826 Belkis Mattson TOPROL XL 25 MG [id number] metoprolol succinate 55160329936 Belkis Mattson CEFTRIAXONE SODIUM 1 GM SOLR 2gm IV Q 24hrs through 09/08 HH [facility] HH [phone] ceftriaxone 32543227852 [facility] Medications Administered No information available. Allergies, Adverse Reactions, Alerts Allergy Name Reaction Description Start Date Severity Statu s Provider THEOPHYLLINE ER Moderate Active Bethany celiafan Mattson PROPAFENONE HCL Moderate Active Bethany ronan Mattson PENICILLIN V POTASSIUM Moderate Active Belkis Mattson METFORMIN HCL congestive heart failure Severe Active Belkis Mattson GLIPIZIDE congestive heart failure Severe Active Belkis Mattson DYE Moderate Active Belkis Mattson DETROL congestive heart failure Severe Active Belkis Mattson CODEINE SULFATE Moderate Active Bethany celiafan Mattson BUPRENORPHINE Moderate Active Nevaeh any Mattson ANABOLIC STERIODS congewtive heart failure Severe [...] Weight Measured 201.4 [lb_av] weight E& M Weight Measured 201.4 [lb_av] weight E& M Immunizations No information available. Advance Directives Directive Description Start Date NO LIVING WILL ON FILE
--- OUTSIDE RECORDS SUMMARY | 2025-05-03 08:53 | XMS_ITS | Encounter Summary ---
Author Organization [employer] Address [address] [place] [address] Care Team Providers Care Edger Technician Name Role Phone Reji Castro MD Primary Care Provider [phone] Encounter Details Date Type Department Care Team (Late st Contact Info) Description 08/13/2021 Transcribed Document [facility] Family Medicine [address] [place] [address] ProviderDelvin MD [address] [place] [address] Social History Tobacco Use Types Packs/Day Years Used Date Smoking Tobacco: Never Assessed Comments Unknown Sex and Gender Information Value Date Recorded Sex Assigned at Not on file Legal Sex Female 4:32 PM CDT Gender Identity Not on file Sexual Orientation Not on file documented as of this encounter Miscellaneous Notes * Cerner Conversion Note - Delvin ProviderMD - 08/13/2021 5:00 PM CDT Chart Check - Review Order Profile Entered On: 08/13/2021 16:09 EDT Performed On: 08/13/2021 17:00 EDT by WILLIAMS HANEY, RN Chart Check All Active Orders Reviewed : Yes WILLIAMS HANEY RN - 08/13/2021 16:09 EDT documented in this encounter Plan of Treatment Not on file documented as of this encounter Visit Diagnoses Not on filedocumented in this encounter Care Teams Edger Technician Relationship Specialty Start Date End Date Reji Castro MD [address] [place] [id number] PCP - General Adolescent Medicine 10/02/22 documented as of this encounter
--- OUTSIDE RECORDS SUMMARY | 2025-05-03 08:53 | XMS_ITS | Encounter Summary ---
Author Organization [employer] Address [address] [place] [address] Care Team Providers Care Cotton Grader Name Role Phone Reji Castro MD Primary Care Provider [phone] Encounter Details Date Type Department Care Team (Late st Contact Info) Description 08/23/2021 Transcribed Document [facility] Radiology [address] [place] [address] Loren Solorzano MD [address] [place] [address] [address] [place] [id number] Social History Tobacco Use Types Packs/Day Years Used Date Smoking Tobacco: Never Assessed Comments Unknown Sex and Gender Information Value Date Recorded Sex Assigned at Not on file Legal Sex Female 4:32 PM CDT Gender Identity Not on file Sexual Orientation Not on file documented as of this encounter Miscellaneous Notes * Cerner Conversion Note - Loren Solorzano MD - 08/23/2021 11:28 AM EDT Patient: IRINA TAMAYO Age: 56 years Sex: Female : 1965 Associated Diagnoses: None Author: LOREN SOLORZANO MD-INT Subjective Mild dyspnea on exertion. Feeling better today. Out to chair. No chest pain or limitations. No shortness of air. No fever or chills Review of Systems Constitutional: No fever, No [...] cefTRIAXone: 2 Gram, 100 mL/Hr, IV Piggyback, [id number] diphenhydrAMINE: 25 mg, Oral, Q6H, PRN: Itching [...] Oral, BID cefTRIAXone 2 Gram, IV Piggyback, [id number] citalopram 20 mg tab 40 mg 2 [...] Bioprosthetic mitral valve replacement / SNOMED CT 942252423 / Confirmed Chronic kidney disease / SNOMED CT 6232160465 / Confirmed COPD - Chronic obstructive pulmonary disease / SNOMED CT 167855332 / Confirmed History of obstructive sleep apnea / IMO [id number] / Confirmed HLD - Hyperlipidemia / SNOMED CT 609417380 / Confirmed HTN - Hypertension / SNOMED CT 3664328896 / Confirmed Canceled: Atrial fibrillation / SNOMED CT 85043234, Active Problems (25) AIHA (autoimmune hemolytic anemia) [...] 24 hrs) Last Charted Minimum Maximum Temp 97.7 (AUG 23 06:20) 97.7 (AUG 23:20) 98.1 (AUG 22:00) Apical HR 75 (AUG 22 21:02) 75 (AUG 22 21:02) 75 (AUG 22 21:02) Mon HR 79 (AUG 23 06:20) 71 (AUG 22 19:00) 108 (AUG 23 03:00) Resp Rate 17 (AUG 23 06:20) 15 (AUG 22 23:00) 20 (AUG 22 19:00) SBP 97 (AUG 23 06:20) 94 (AUG 22 23:00) 102 (AUG 22 19:00) DBP L 40 (AUG 23 06:20) L 40 (AUG 23 06:20) L 59 (AUG 22 23:00) MAP 75 (AUG 23 06:20) 67 (AUG 23 03:00) 75 (AUG 22 19:00) SpO2 L 93 (AUG 23 06:20) L 93 (AUG 23 06:20) 100 (AUG 22 23:00) General: Alert and oriented, No acute [...] mood & affect. Review / Management AUG 23 06:00 139 L 101 19 / H 118 3.8 H 34 H 1.40 \ AUG 23 06:00 \ L 7.6 / 6.1 181 / L 26.0 \ Radiology Results (Last 48 hours) [id number] -- 08/11/2021 21:21 CR Chest 1 Vw [...] review: Labs (Last four charted values) WBC 6.1 (AUG 23) 7.0 (AUG 22) 7.4 (AUG 21) 8.1 (AUG 20) HB L 7.6 (AUG 23) L 7.5 (AUG 22) L 7.4 (JUL 30) L 7.7 (SEP 29) HCT L 26.0 (AUG 23) L 25.6 (AUG 22) L 25.2 (JUL 30) L 25.9 (JUL 29) Plt 181 (AUG 23) 181 (AUG 22) 188 (JUL 30) 210 (SEP 29) Na 139 (AUG 23) 138 (AUG 22) 138 (JUL 30) 138 (JUL 29) K 3.8 (AUG 23) 3.7 (AUG 22) 3.8 (JUL 30) 3.9 (SEP 29) Cl L 101 (AUG 23) 102 (AUG 22) 103 (SEP 30) 103 (AUG 20) CO2 H 34 (AUG 23) H 33 (AUG 22) 31 (AUG 21) 29 (AUG 20) BUN 19 (AUG 23) 19 (AUG 22) 19 (AUG 21) 18 (AUG 20) Cr H 1.40 (AUG 23) H 1.40 (AUG 22) H 1.30 (AUG 21) H 1.40 (AUG 20) Glu R H 118 (AUG 23) H 137 (AUG 22) H 129 (AUG 21) H 125 (AUG 20) Ca 9.1 (AUG 23) 8.9 (AUG 22) 8.6 (AUG 21) 9.1 (AUG 20) Lactic .93 (AUG 12) L .73 (AUG 11) PT H 18.4 (AUG 23) H 14.4 (AUG 22) H 13.3 (AUG 21) H 13.5 (AUG 20) INR H 1.8 (AUG 23) H 1.4 (AUG 22) H 1.3 (AUG 21) H 1.3 (AUG 20) PTT H 39.6 (AUG 11) AST 17 [...] <0.015 (AUG 12) <0.015 (SEP 20) <0.015 (JUL 20) . Medication Changes from Previous Midnight to Current New Medications: warfarin (Coumadin) 6 mg, Oral, Tab, Daily, Routine, Start 08/23/21 18:00:00 EDT, 08/11/21 20:44:00 EDT LOREN SOLORZANO MD-INT Discontinued Medications: No Qualifying Discontinued Meds Impression [...] than 180 Started on IV iron infusion Her daughter want to for blood transfused even hemoglobin more than 7.0 g/dL. And her H&H is stable and no signs of active bleed. #Chronic heart failure, A. fib, mechanical valve EF 55% INR subtherapeutic, 1.8?bridge with Heparin; goal INR 2.5-3.5 Aspirin, metoprolol Currently rate controlled Cardiology evaluated, signed off 08/14 bumex resumed. Continue hold spironolactone, valsartan due to borderline hypotension, TRISTAN #Diabetes Hold home meds SSI #Depression Celexa #Pain Sidney 10 mg every 6 hours as needed CODE STATUS. Full code Dispo: Given patient with history of multiple transfusion we will keep patient in the hospital on heparin drip and Coumadin till INR therapeutic need IV abx, at least until 09/08. Discussed with bilingual patient support caseworker. and pharmcy Time spent 25 minutes documented in this encounter Plan of Treatment Not on file documented as of this encounter Visit Diagnoses Not on filedocumented in this encounter Care Teams Cotton Grader Relationship Specialty Start Date End Date Reji Castro MD [address] [place] [id number] PCP - General Adolescent Medicine 10/02/22 documented as of this encounter
--- OUTSIDE RECORDS SUMMARY | 2025-05-03 08:53 | XMS_ITS | Encounter Summary ---
Author Organization [employer] Address [address] [place] [address] Care Team Providers Care Fisheries Officer Name Role Phone Reji Castro MD Primary Care Provider [phone] Encounter Details Date Type Department Care Team (Late st Contact Info) Description 08/18/2021 Transcribed Document [facility] [place] Family Medicine [facility] [place] [address] ProviderDelvin MD [facility] [place] [address] Social History Tobacco Use Types Packs/Day Years Used Date Smoking Tobacco: Never Assessed Comments Unknown Sex and Gender Information Value Date Recorded Sex Assigned at Not on file Legal Sex Female 4:32 PM CDT Gender Identity Not on file Sexual Orientation Not on file documented as of this encounter Miscellaneous Notes * Cerner Conversion Note - Delvin Celestin MD - 08/18/2021 11:34 AM CDT Patient: IRINA TAMAYO Age: 56 years Sex: Female : 1965 Associated Diagnoses: None Author: Andrea Moraes, Resident Pharmacist Pharmacy Consult - Warfarin HPI: 56 y/o F presenting to [facility] with history of COPD, atrial fibrillation, [...] Piggyback, Q8HInt. citalopram: 40 mg, Oral, Daily. diphenhydrAMINE: 50 [...] 250 mL: Titrate, IntraVENous, Stop: 08/18/21 23:59:00 EDT. hydrALAZINE: 10 mg, IV Push, Q4H, PRN: [...] 18 02:02) DBP L 53 (AUG 18 06:) L 45 (AUG 17 18:12) 61 (AUG 17:) MAP 77 (AUG 18 06:29) 70 (AUG 17 18:12) 78 (AUG 17 22:27) SpO2 95 (AUG 18 06:29) L 90 (AUG 18 02:02) 95 (AUG 18 06:) Labs (Last four charted values) WBC 7.0 (AUG 18) 6.4 (AUG 17) 7.1 (AUG 15) 6.7 (AUG 14) HB L 7.7 (AUG 18) L 7.5 (AUG 17) L 7.5 (AUG 16) L 7.9 (SEP 24) HCT L 26.2 (AUG 18) L 25.4 (SEP 26) L 25.9 (SEP 25) L 26.7 (SEP 24) Plt 207 (AUG 18) 195 (AUG 17) 197 (JUL 24) 210 (AUG 14) Na [...] 18) H 14.6 (AUG 17) H 17.2 (JUL 25) H 18.2 (AUG 15) INR H 1.3 (AUG 18) H 1.4 (AUG 17) H 1.7 (AUG 16) H 1.8 (JUL 24) PTT H 39.6 (JUL 20) AST 17 (AUG 18) 19 (SEP 24) 18 (JUL 22) 17 (AUG 13) ALT L 12 (AUG 18) 17 (JUL 24) 17 (AUG 13) 19 (AUG 13) ALK P 110 (AUG 18) 101 (SEP 24) 102 (SEP 22) 102 (AUG 13) T Bili 0.6 (AUG 18) 0.4 (SEP 24) 0.4 (SEP ) 0.5 (AUG 13) PTN 6.8 (AUG 18) 7.0 (SEP 24) 7.3 (SEP 22) 6.9 (SEP 22) ALB 3.9 (AUG 18) 3.5 (SEP 24) [...] heparin gtt heparin gtt Date 08/18 08/19 INR 1.3 Dose HOLD Bridge *heparin gtt* to midnight Creatinine Clearance (Current Encounter/Past 24 Hours) Creatinine Level 1.40 mg/dL HI 08/18/2021 07:46 Bun/Creatinine 12.9 08/18/2021 07:46 Estimated Creatinine Clearance 37.82 mL/Min 08/18/2021 07:46 Intake & Output Totals Last 24 Hours (7a-7a) Input Total: 1805 mL Output Total: 1550 mL Balance: 255 mL A/P: 1.) Per Clyde Corral PA-C 08/18 note: plan to replace Port-A-Cath tomorrow (08/19) AM; hold heparin @ midnight + cont. holding warfarin 2.) INR today (08/18) is 1.3, which is subtherapeutic. Will plan to continue heparin gtt until 08/18 @2359 then hold - cont. holding warfarin. - INR has been subtherapeutic since admission - will defer heparin gtt + warfarin re-initiation to MD - surgery + hospitalist both aware 3.) Daily PT/INR ordered. Goal INR 2.5-3.5. H/H still low. Continue to monitor closely for any s/sxs of bleeding & trend lab values. 4.) Possible drug interactions noted above. Will re-evaluate warfarin interactions prior to warfarin re-initiation. 5.) Pharmacy will continue to follow. Please reach out with any questions. Thank you, Andrea Moraes, PharmD PGY1 Sap Bw Bi Developer Pager: [phone], Ext. [phone] documented in this encounter Plan of Treatment Not on file documented as of this encounter Visit Diagnoses Not on filedocumented in this encounter Care Teams Fisheries Officer Relationship Specialty Start Date End Date Reji Castro MD [address] [place] [id number] PCP - General Adolescent Medicine 10/02/22 documented as of this encounter
--- OUTSIDE RECORDS SUMMARY | 2025-05-03 08:53 | XMS_ITS | Encounter Summary ---
Author Organization [employer] Address [address] [place] [address] Care Team Providers Care Broadcast Supervisor Name Role Phone Reji Castro MD Primary Care Provider [phone] Encounter Details Date Type Department Care Team (Late st Contact Info) Description 08/24/2021 Transcribed Document [facility] [place] Family Medicine [address] [place], [place] [id number] ProviderDelvin MD [address] [place] [address] Social History Tobacco Use Types Packs/Day Years Used Date Smoking Tobacco: Never Assessed Comments Unknown Sex and Gender Information Value Date Recorded Sex Assigned at Not on file Legal Sex Female 4:32 PM CDT Gender Identity Not on file Sexual Orientation Not on file documented as of this encounter Miscellaneous Notes * Cerner Conversion Note - Delvin Celestin MD - 08/24/2021 10:24 AM CDT Patient: IRINA TAMAYO Age: 56 [...] cefTRIAXone: 2 Gram, 100 mL/Hr, IV Piggyback, [id number] diphenhydrAMINE: 25 mg, Oral, Q6H, PRN: Itching [...] Oral, BID cefTRIAXone 2 Gram, IV Piggyback, [id number] citalopram 20 mg tab 40 mg 2 [...] Bioprosthetic mitral valve replacement / SNOMED CT 322980380 / Confirmed Chronic kidney disease / SNOMED CT 8199053341 / Confirmed COPD - Chronic obstructive pulmonary disease / SNOMED CT 453871031 / Confirmed History of obstructive sleep apnea / IMO 86914612 / Confirmed HLD - Hyperlipidemia / SNOMED CT 946927616 / Confirmed HTN - Hypertension / SNOMED CT 2391519179 / Confirmed Canceled: Atrial fibrillation / SNOMED CT 35680603, Active Problems (25) AIHA (autoimmune hemolytic anemia) [...] 24 06:36) 99 (AUG 23 23:15) General: No acute distress. Eye: Extraocular movements [...] 23) 7.0 (AUG 22) 7.4 (AUG 21) HB L 7.8 (AUG 24) L 7.6 (AUG 23) L 7.5 (AUG 22) L 7.4 (AUG 21) HCT L 26.6 (AUG 24) L 26.0 (AUG 23) L 25.6 (AUG 22) L 25.2 (AUG 21) Plt 194 (AUG 24) 181 (AUG 23) 181 (AUG 22) 188 (AUG 21) Na 137 (AUG 24) 139 (AUG 23) 138 (AUG 22) 138 (AUG 21) K 3.9 (AUG 24) 3.8 (AUG 23) 3.7 (AUG 22) 3.8 (AUG 21) Cl L 99 (AUG 24) L 101 (AUG 23) 102 (AUG 22) 103 (AUG 21) CO2 H 35 (AUG 24) H 34 [...] 3.9 (AUG 18) 3.5 (JUL 24) 3.8 (SEP 22) 3.9 (AUG 13) Lipase 224 (AUG 13) Troponin <0.015 (AUG 12) <0.015 (AUG 11) <0.015 (AUG 11) . AUG 24 07:00 137 L 99 H 23 / H 120 3.9 H 35 H 1.40 \ AUG 24 07:00 \ L 7.8 / 5.6 194 / L 26.6 \ Impression and Plan Dx and Plan [...] is excellent on Diuretics. Renal function stable. Monitor I/O Avoid nephrotoxic agents. Monitor GFR adjust medications. Electronically signed by Lanny, [facility] Conversion Transportation Security Screener Cerner at 03/09/2023 8:38 PM CDT documented in this encounter Plan of Treatment Not on file documented as of this encounter Visit Diagnoses Not on filedocumented in this encounter Care Teams Broadcast Supervisor Relationship Specialty Start Date End Date Reji Castro MD [address] [place] [id number] PCP - General Adolescent Medicine 10/02/22 documented as of this encounter
--- OUTSIDE RECORDS SUMMARY | 2025-05-03 08:53 | XMS_ITS | Encounter Summary ---
Author Organization [employer] Address [address] [place] [address] Care Team Providers Care Executive Wellness Programs Director Name Role Phone Reji Castro MD Primary Care Provider [phone] Encounter Details Date Type Department Care Team (Late st Contact Info) Description 08/18/2021 Transcribed Document [facility] Family Medicine [address] [place] [address] ProviderDelvin MD [address] [place] [address] Social History Tobacco Use Types Packs/Day Years Used Date Smoking Tobacco: Never Assessed Comments Unknown Sex and Gender Information Value Date Recorded Sex Assigned at Not on file Legal Sex Female 4:32 PM CDT Gender Identity Not on file Sexual Orientation Not on file documented as of this encounter Miscellaneous Notes * Cerner Conversion Note - Delvin ProviderMD - 08/18/2021 4:03 PM CDT Spiritual Care Short Form Entered On: 09/02/2021 12:43 EDT Performed On: 08/18/2021 16:03 EDT by FAIZA ARIZA General Information, Spiritual Care Intervention/Comment/Summary Points : PreSurgery visit Anglican Preference : Judaism FAIZA ARIZA - 09/02/2021 12:43 EDT documented in this encounter Plan of Treatment Not on file documented as of this encounter Visit Diagnoses Not on filedocumented in this encounter Care Teams Executive Wellness Programs Director Relationship Specialty Start Date End Date Reji Castro MD [address] [place] [id number] PCP - General Adolescent Medicine 10/02/22 documented as of this encounter
--- OUTSIDE RECORDS SUMMARY | 2025-05-03 08:53 | XMS_ITS | Encounter Summary ---
Author Organization [employer] Address [address] [place] [address] Care Team Providers Care Software Engineering Associate Manager Name Role Phone Reji Castro MD Primary Care Provider [phone] Encounter Details Date Type Department Care Team (Late st Contact Info) Description 08/23/2021 Transcribed Document [facility] [place] Family Medicine [address] [place], [place] [id number] ProviderDelvin MD [address] [place] [address] Social History Tobacco Use Types Packs/Day Years Used Date Smoking Tobacco: Never Assessed Comments Unknown Sex and Gender Information Value Date Recorded Sex Assigned at Not on file Legal Sex Female 4:32 PM CDT Gender Identity Not on file Sexual Orientation Not on file documented as of this encounter Miscellaneous Notes * Cerner Conversion Note - Delvin Celestin MD - 08/23/2021 8:51 AM CDT Patient: IRINA TAMAYO Age: [...] cefTRIAXone: 2 Gram, 100 mL/Hr, IV Piggyback, [id number] diphenhydrAMINE: 25 mg, Oral, Q6H, PRN: Itching [...] Oral, BID cefTRIAXone 2 Gram, IV Piggyback, [id number] citalopram 20 mg tab 40 mg 2 [...] Bioprosthetic mitral valve replacement / SNOMED CT 018054558 / Confirmed Chronic kidney disease / SNOMED CT 5809611157 / Confirmed COPD - Chronic obstructive pulmonary disease / SNOMED CT 543865892 / Confirmed History of obstructive sleep apnea / IMO 08277767 / Confirmed HLD - Hyperlipidemia / SNOMED CT 396404484 / Confirmed HTN - Hypertension / SNOMED CT 8901135656 / Confirmed Canceled: Atrial fibrillation / SNOMED CT 63203405, Active Problems (25) AIHA (autoimmune hemolytic anemia) [...] Temp 97.7 (AUG 23 06:20) 97.7 (AUG 23 06:20) 98.1 (AUG 22 19:00) Apical HR 75 (AUG 22:02) 75 (AUG 22 21:02) 75 (AUG 22 [...] 23 06:20) 100 (AUG 22 23:00) General: No acute distress. Eye: Extraocular movements [...] 7.4 (AUG 21) L 7.7 (AUG 20) HCT L 26.0 (AUG 23) L 25.6 (AUG 22) L 25.2 (AUG 21) L 25.9 (AUG 20) Plt 181 (AUG 23) 181 (AUG 22) 188 (AUG 21) 210 (AUG 20) Na 139 (AUG 23) 138 (AUG 22) 138 (AUG 21) 138 (AUG 20) K 3.8 (AUG 23) 3.7 (AUG 22) 3.8 (AUG 21) 3.9 (AUG 20) Cl L 101 (AUG 23) 102 (AUG 22) 103 (AUG 21) 103 (AUG 20) CO2 H 34 (AUG [...] (AUG 11) <0.015 (AUG 11) . AUG 23 06:00 139 L 101 19 / H 118 3.8 H 34 H 1.40 \ AUG 23 06:00 \ L 7.6 / 6.1 181 / L 26.0 \ Impression and Plan Dx and Plan [...] iron. Recommendations: UOP is excellent on Diuretics. BP low today. Will decrease dose of Aldactone to 25 mg po bid with holding parameters. Monitor I/O Avoid nephrotoxic agents. Monitor GFR adjust medications. Electronically signed by [facility], [facility] Conversion Junior Analyst Cerner at 03/09/2023 8:48 PM CDT documented in this encounter Plan of Treatment Not on file documented as of this encounter Visit Diagnoses Not on filedocumented in this encounter Care Teams Software Engineering Associate Manager Relationship Specialty Start Date End Date Reji Castro MD [address] [place] [id number] PCP - General Adolescent Medicine 10/02/22 documented as of this encounter
--- OUTSIDE RECORDS SUMMARY | 2025-05-03 08:53 | XMS_ITS | Encounter Summary ---
Author Organization [employer] Address [address] [place] [address] Care Team Providers Care Production Hand Name Role Phone Reji Castro MD Primary Care Provider [phone] Encounter Details Date Type Department Care Team (Late st Contact Info) Description 08/23/2021 Transcribed Document [facility] [place] [facility] [place] [address] ProviderDelvin MD [address] [place] [id number] Social History Tobacco Use Types Packs/Day Years Used Date Smoking Tobacco: Never Assessed Comments Unknown Sex and Gender Information Value Date Recorded Sex Assigned at Not on file Legal Sex Female 4:32 PM CDT Gender Identity Not on file Sexual Orientation Not on file documented as of this encounter Miscellaneous Notes * Cerner Conversion Note - Delvin Celestin MD - 08/23/2021 2:21 PM CDT Patient: IRINA TAMAYO Age: 56 years Sex: Female : 1965 Associated Diagnoses: None Author: Noy Garrett, Resident Pharmacist Pharmacy Consult - Warfarin HPI: 56 y/o F presenting to [facility] with history of COPD, atrial fibrillation, CKD [...] cefTRIAXone: 2 Gram, 100 mL/Hr, IV Piggyback, [id number]. citalopram: 40 mg, Oral, Daily. diphenhydrAMINE: 25 mg, Oral, Q6H, PRN: Itching. docusate-senna: 1 Tab, Oral, BID. famotidine: 20 mg, Oral, At Bedtime. fentaNYL: 25 mcg, IV Push, Q4H, PRN: Pain (Severe 7-10). folic acid: 1 mg, Oral, Daily. glucagon: 1 mg, IntraMuscular, Q15Min, PRN: Other (See Comment). glucose: 16 Gram, 4 Tab, Chew, Q15Min, PRN: Other (See Comment). glucose: 15 Gram, 37.5 mL, Oral, Q15Min, PRN: Other (See Comment). glucose: 25 Gram, IV Push, Q15Min, PRN: Other (See Comment). glucose: 25 Gram, IV Push, Q15Min, PRN: Other (See Comment). glucose: 25 Gram, IV Push, Q15Min, PRN: Other (See Comment). glucose: 12.5 Gram, IV Push, Q15Min, PRN: Other (See Comment). heparin 25,000 Units + NaCl 0.45% Premix [...] Nausea. spironolactone: 25 mg, Oral, BID. warfarin: 6 mg, Oral, Daily. Documented acetaminophen-oxyCODONE: 1 Tab, Oral, Q8H, PRN: for pain, 0 Refill(s). ALPRAZolam: 1 Tab, Oral, TID, PRN: anxiety, 0 Refill(s). aspirin: 1 Tab, Oral, Daily, 30 Tab, 0 Refill(s). bifidobacterium-lactobacillus: 1 Cap, Oral, Daily, takes with dinner. bumetanide: 1 Tab, Oral, BID, 0 Refill(s). cefdinir: 1 Cap, Oral, Q12H, for 10 Day(s), Start Date: 08/10/2021, 20 Cap, 0 Refill(s). citalopram: 1 Tab, Oral, Daily, 30 Tab. dapagliflozin: 1 Tab, Oral, Daily, 0 Refill(s). dexlansoprazole: 1 Cap, Oral, Daily, 30 Cap. docusate-senna: 1 Tab, Oral, BID, 30 Tab, 0 Refill(s). famotidine: 1 Tab, Oral, At Bedtime, 0 Refill(s). folic acid: 1 Tab, Oral, Daily, 0 Refill(s). insulin glargine: 80 Units, SubCutaneous, At Bedtime, 0 Refill(s). levothyroxine: 1 Tab, Oral, Daily, 0 Refill(s). metoprolol: 1 Tab, Oral, Daily, 0 Refill(s). olopatadine ophthalmic: 1 Drop, Eyes Both, Daily, 0 Refill(s). potassium chloride: 1 Tab, Oral, Daily, 0 Refill(s). spironolactone: 2 Tab, Oral, BID, 180 Tab, 0 Refill(s). valsartan: 0.5 Tab, Oral, Daily, 0 Refill(s). warfarin: 1 Tab, Oral, Daily, 0 Refill(s). Medications Inactivated in the Last 72 Hours bumetanide: 1 mg, IV Push, 1-Time. diphenhydrAMINE: 50 mg, IV Push, On-CALL, PRN: Anaphylaxis. EPINEPHrine: 1 mg, IntraMuscular, On-CALL, PRN: Anaphylaxis. heparin: UBC, 1-Time. heparin: UBC, 1-Time. heparin: UBC, 1-Time. heparin: UBC, 1-Time. lidocaine: Manual Charge, N/A, 1-Time. propofol: Manual Charge, N/A, 1-Time. sodium ferric gluconate complex + Sodium Chloride 0.9% intravenous solution 230 mL: 250 mg, 20 mL, 125 mL/Hr, IV Piggyback, Daily. spironolactone: 50 mg, Oral, BID. warfarin: 6 mg, Oral, Daily. warfarin: 7.5 mg, Oral, 1-Time. warfarin: 6 mg, Oral, Daily. warfarin: 7.5 mg, Oral, 1-Time. Allergies (5) Active Reaction anabolic steroids Congestive heart failure Detrol Congestive heart failure Dye None Documented glipiZIDE Congestive heart failure metFORMIN Congestive heart failure BMI BMI: 32.7 Weight: 86.39kg - Standing scale Height: 162.56cm (5ft ) - Stated Vitals Signs (last 24 hrs) Last Charted Minimum Maximum Temp 97.9 (AUG 23 11:00) 97.9 (AUG 23 11:00) 98.1 (AUG 22 19:00) Apical HR 75 (AUG 22 21:02) 75 (AUG 22 21:02) 75 (AUG 22 21:02) Mon HR 82 (AUG 23 11:00) 71 (AUG 22 19:00) 108 (AUG 23 03:00) Resp Rate 14 (AUG 23 11:00) 14 (AUG 23 11:00) 20 (AUG 22 19:00) SBP 96 (AUG 23 11:00) 94 (AUG 22 23:00) 102 (AUG 22 19:00) DBP L 55 (AUG 23 11:00) L 40 (AUG 23 06:20) L 59 (AUG 22 23:00) MAP 67 (AUG 23 11:00) 67 (AUG 23 03:00) 75 (AUG 22 19:00) SpO2 98 (AUG 23 11:00) L 93 (AUG 23 06:20) 100 (AUG 22 23:00) Labs (Last four charted values) WBC 6.1 (AUG 23) 7.0 (AUG 22) 7.4 (AUG 21) 8.1 (AUG 20) HB L 7.6 (AUG 23) L 7.5 (AUG 22) L 7.4 (AUG 21) L 7.7 (AUG 20) HCT L 26.0 (AUG 23) L 25.6 (AUG 22) L 25.2 (JUL 30) L 25.9 (AUG 20) Plt 181 (AUG 23) 181 (AUG 22) 188 (AUG 21) 210 (AUG 20) Na 139 (AUG 23) 138 (AUG 22) 138 (AUG 21) 138 (AUG 20) K 3.8 (AUG 23) 3.7 (AUG 22) 3.8 (AUG 21) 3.9 (AUG 20) Cl L 101 (AUG 23) 102 (AUG 22) 103 (JUL 30) 103 (AUG 20) CO2 H 34 (AUG 23) H 33 (AUG 22) 31 (JUL 30) 29 (SEP 29) BUN 19 (AUG 23) 19 (AUG 22) 19 (JUL 30) 18 (AUG 20) Cr H 1.40 (AUG 23) H 1.40 (AUG 22) H 1.30 (JUL 30) H 1.40 (AUG 20) Glu R H [...] INR 1.3 1.3 1.3 1.3 1.4 1.8 Dose HOLD 6 mg 6 mg 7.5 mg [7.5 mg] [6 mg] Bridge *heparin gtt* to midnight NONE heparin gtt in AM heparin gtt heparin gtt [heparin gtt] heparin gtt Creatinine Clearance (Current Encounter/Past 24 Hours) Creatinine Level 1.40 mg/dL HI 08/23/2021 07:22 Bun/Creatinine 13.6 08/23/2021 07:22 Estimated Creatinine Clearance 37.82 mL/Min 08/22/2021 07:28 Intake & Output Totals Last 24 Hours (7a-7a) Input Total: 1064 mL Output Total: 3900 mL Balance: -2836 mL A/P: 1.) D/w Dr. Solorzano at multidisciplinary rounds: tentative plan is keep patient in hospital until INR is therapeutic 2.) INR today (08/23) is 1.8, which is subtherapeutic. Will continue heparin gtt bridge + give another warfarin 6 mg PO x1. - INR subtherapeutic since [...] you, Noy Garrett, PharmD PGY-1 Resident Pager #[phone] Electronically signed by [facility], [facility] Conversion Buck Presser Cerner at 03/09/2023 8:59 PM CDT documented in this encounter Plan of Treatment Not on file documented as of this encounter Visit Diagnoses Not on filedocumented in this encounter Care Teams Production Hand Relationship Specialty Start Date End Date Reji Castro MD [address] [place] [id number] PCP - General Adolescent Medicine 10/02/22 documented as of this encounter
--- OUTSIDE RECORDS SUMMARY | 2025-05-03 08:53 | XMS_ITS | Encounter Summary ---
Author Organization [employer] Address [address] [place] [address] Care Team Providers Care Dry Pan Charger Name Role Phone Reji Castro MD Primary Care Provider [phone] Encounter Details Date Type Department Care Team (Late st Contact Info) Description 08/13/2021 Transcribed Document [facility] [place] Family Medicine [address] [place] [address] ProviderDelvin MD [address] [place] [address] Social History Tobacco Use Types Packs/Day Years Used Date Smoking Tobacco: Never Assessed Comments Unknown Sex and Gender Information Value Date Recorded Sex Assigned at Not on file Legal Sex Female 4:32 PM CDT Gender Identity Not on file Sexual Orientation Not on file documented as of this encounter Miscellaneous Notes * Cerner Conversion Note - Delvin ProviderMD - 08/13/2021 5:00 AM CDT Chart Check - Review Order Profile Entered On: 08/13/2021 6:34 EDT Performed On: 08/13/2021 5:00 EDT by Genna Gonsalez, RN Chart Check Powerplans Initiated/Discontinued as Appropriate : Yes All Active Orders Reviewed : Yes Genna Gonsalez RN - 08/13/2021 6:34 EDT documented in this encounter Plan of Treatment Not on file documented as of this encounter Visit Diagnoses Not on filedocumented in this encounter Care Teams Dry Pan Charger Relationship Specialty Start Date End Date Reji Castro MD [address] [place] [id number] PCP - General Adolescent Medicine 10/02/22 documented as of this encounter
--- OUTSIDE RECORDS SUMMARY | 2025-05-03 08:53 | XMS_ITS | Encounter Summary ---
Author Organization [employer] Address [address] [place] [address] Care Team Providers Care Research Instrumentation Technician Name Role Phone Reji Castro MD Primary Care Provider [phone] Encounter Details Date Type Department Care Team (Late st Contact Info) Description 08/24/2021 Transcribed Document [facility] [place] Medicine [facility] [place] [address] ProviderDelvin MD [address] [place] [address] Social History Tobacco Use Types Packs/Day Years Used Date Smoking Tobacco: Never Assessed Comments Unknown Sex and Gender Information Value Date Recorded Sex Assigned at Not on file Legal Sex Female 4:32 PM CDT Gender Identity Not on file Sexual Orientation Not on file documented as of this encounter Miscellaneous Notes * Cerner Conversion Note - Delvin eClestin MD - 08/24/2021 4:12 PM CDT Patient: IRINA TAMAYO Age: 56 years Sex: Female : 1965 Associated Diagnoses: None Author: Noy Garrett, Resident Pharmacist Pharmacy Consult - Warfarin HPI: 56 y/o F presenting to [facility] with history of COPD, atrial fibrillation, [...] cefTRIAXone: 2 Gram, 100 mL/Hr, IV Piggyback, [id number]. citalopram: 40 mg, Oral, Daily. diphenhydrAMINE: 25 [...] 1-Time. heparin: UBC, 1-Time. heparin: UBC, 1-Time. sodium ferric gluconate complex + Sodium [...] (AUG 24 06:36) 97.8 (AUG 24 06:36) 97.7 (AUG 23 18:09) Apical HR 86 (AUG 23 21:18) 86 (AUG 23 21:18) 86 (AUG 23 21:18) Mon HR 83 (AUG 24 06:36) 80 (AUG 02 23:15) 90 (AUG 02 18:09) Resp Rate 18 (AUG 24 06:36) 16 (AUG 24 03:30) 18 (AUG 02 18:09) SBP 108 (AUG 24 06:36) 94 (AUG 24 03:30) 115 (AUG 23 18:09) DBP L 59 (AUG 24 06:36) L 45 (AUG 24 03:30) 69 (AUG 02 18:09) MAP 83 (AUG 24 06:36) 57 (AUG 24 03:30) 83 (AUG 24 06:36) SpO2 L 90 (AUG 24 06:36) L 90 (AUG 24 06:36) 99 (AUG 23 23:15) Labs (Last four charted values) WBC 5.6 (AUG 03) 6.1 (AUG 02) 7.0 (AUG 22) 7.4 (JUL 30) HB L 7.8 (AUG 03) L 7.6 (AUG 02) L 7.5 (AUG 22) L 7.4 (JUL 30) HCT L 26.6 (AUG 03) L 26.0 (AUG 02) L 25.6 (AUG 01) L 25.2 (JUL 30) Plt 194 (AUG 03) 181 (AUG 02) 181 (AUG 22) 188 (JUL 30) Na 137 (AUG 03) 139 (AUG 02) 138 (AUG 22) 138 (JUL 30) K 3.9 (AUG 03) 3.8 (OCT 02) 3.7 (OCT 01) 3.8 (JUL 30) Cl L 99 (AUG 03) L 101 (AUG 02) 102 (AUG 22) 103 (JUL 30) CO2 H 35 (AUG 03) H 34 (AUG 02) H 33 (OCT 01) 31 (JUL 30) BUN H 23 (AUG 03) 19 (AUG 02) 19 (AUG 01) 19 (JUL 30) Cr H 1.40 (AUG 03) H 1.40 (OCT 02) H 1.40 (AUG 01) H 1.30 (SEP 30) Glu R H 120 (OCT 03) H 118 (OCT 02) H 137 (OCT 01) H 129 (JUL 30) Ca 9.4 (AUG 03) 9.1 (OCT 02) 8.9 (OCT ) 8.6 (AUG 21) Lactic .93 (AUG 12) L .73 (AUG 11) PT H 18.8 (OCT 03) H 18.4 (AUG 23) H 14.4 (AUG [...] mg 7.5 mg [7.5 mg] [6 mg] 7.5 mg Bridge *heparin gtt* to midnight NONE heparin gtt in AM heparin gtt heparin gtt [heparin gtt] heparin gtt Creatinine Clearance (Current Encounter/Past 24 Hours) Creatinine Level 1.40 mg/dL HI 08/24/2021 07:51 Bun/Creatinine 16.4 08/24/2021 07:51 Intake & Output Totals Last 24 Hours (7a-7a) Input Total: 406 mL Output Total: 1700 mL Balance: -1294 mL A/P: 1.) D/w Dr. Solorzano at multidisciplinary rounds: tentative plan is keep patient in hospital until INR is therapeutic 2.) INR today (08/24) is 1.8, which is subtherapeutic. Will continue heparin gtt bridge + give increased dose of 7.5 PO x1. - INR subtherapeutic since admission 3.) Pt warfarin was held for 5 [...] you, Noy Garrett, PharmD PGY-1 Resident Pager #[phone] Electronically signed by Lanny [facility] Conversion Canvas Cutter Hand Cerner at 03/09/2023 8:39 PM CDT documented in this encounter Plan of Treatment Not on file documented as of this encounter Visit Diagnoses Not on filedocumented in this encounter Care Teams Research Instrumentation Technician Relationship Specialty Start Date End Date Reji Castro MD [address] [place] [id number] PCP - General Adolescent Medicine 10/02/22 documented as of this encounter
[2025-05-03 09:07] LABS: Basophils % 0.5 % (0.1-2.0); Eosinophils # 0.3 Kmm3 (0.0-0.4); Eosinophils % 3.1 % (0.1-12.0); Hematocrit 29.9 % (37.0-47.0); Immature Granulocytes # 0.02 10^3uL; Immature Granulocytes % 0.2 %; Lymphocytes # 0.2 K/mm3 (0.7-4.5); Lymphocytes % 2.6 % (10-50); Mean Corpuscular HGB Conc 30.1 g/dL (31.8-35.4); Mean Corpuscular Hemoglobin 26.9 pg (27.0-31.2); Mean Corpuscular Volume 89.3 fl (81-99); Mean Platelet Volume 9.9 fl (7.4-10.4); Monocytes # 0.8 K/mm3 (0.1-1.0); Monocytes % 10.1 % (1.7-9.3); Neutrophils # 6.8 K/mm3 (1.8-7.8); Neutrophils % 83.5 % (37.0-80.0); Nucleated Red Blood Cells # 0 10^3/uL; Nucleated Red Blood Cells % 0 %; Platelet Count 193 K/mm3 (142-424); Red Blood Count 3.35 M/mm3 (4.20-5.40); Red Cell Distribution Width 18.3 % (11.5-17.5); Red Cell Distribution Width-SD 60.5 fL; White Blood Count 8.2 K/mm3 (4.8-10.8)
[2025-05-03 09:15] LABS: MANUAL DIFFERENTIAL MANUAL DIFFERENTIAL (MANUAL DIFF)
--- OUTSIDE RECORDS SUMMARY | 2025-05-03 09:50 | XMS_ITS | CCD ---
Author Organization Unknown Care Team Providers Care Site Operations Manager Name Role Phone Non Engaged, [facility] Primary Care Provider Unav ailable Unavailable Chronic Care Management Unavaila ble Summary Purpose DataExchange Insurance Providers Payer name Policy type / Coverage type Covered democrat ID Effective Begin Date Effective End Date [facility] [id number] Unknown Unknown Family History Family History data not found Medication Administered No Medication Administered data Reason For Visit No Reason For Visit data Medical Equipment No Medical Equipment data Advance Directives No Advance Directive data
--- OUTSIDE RECORDS SUMMARY | 2025-05-03 09:51 | XMS_ITS | CCD ---
Author Organization Unknown Care Team Providers Care Jumpbasting Facing Baster Name Role Phone Non Engaged, [facility] Primary Care Provider Unav ailable Unavailable Chronic Care Management Unavaila ble Summary Purpose DataExchange Insurance Providers Payer name Policy type / Coverage type Covered constitution party ID Effective Begin Date Effective End Date [facility] [id number] Unknown Unknown Family History Family History data not found Medication Administered No Medication Administered data Reason For Visit No Reason For Visit data Medical Equipment No Medical Equipment data Advance Directives No Advance Directive data
[2025-05-03 09:52] LABS: INR 3.52 (0.9-1.1); Prothrombin Time 35.6 seconds (10.1-12.5)
[2025-05-03 10:51] LABS: Eosinophils % 2 % (0-3); Lymphocytes % 3 % (10-50); Monocytes % 1 % (2-9); Neutrophils % 94 % (42-76); Total Cells Counted 100
[2025-05-03 10:52] LABS: Hypochromasia 1+; Platelet Estimate Normal
[2025-05-03] MEDS: SODIUM CHLORIDE 0.9% 10ML FLUSH SYRINGE 10 ML IV (11:06)
--- NOTE | 2025-05-03 11:39 | HMH.PHAINT1 ---
Pharmacy Intervention Comments: INR 3.52 TODAY WHILE IN OUTPATIENT INFUSION. HAVING PATIENT TAKE WARFARIN 2 MG DAILY.
== END 2025-05-03 09:00 | disposition home or self-care (01) ==
LOC: LAB 08:46 → INF 08:49
PROVIDERS: PCP Internal Medicine Adolescent Medicine; Visit Provider Internal Medicine Medical Oncology
DX: D64.9 Anemia, unspecified (principal)
CPT/HCPCS: 36591; 85007; 85025; 85027; 85610; J1642

== ENCOUNTER 2025-05-07 12:43 | Emergency (ER) | payer MEDICARE, MEDICAID, SELFPAY ==
[2025-05-07] VITALS (7 sets, daily range): BP systolic 103–109; BP diastolic 58–81; PULSE 80–84; RESP 12–18; TEMP 36.6–37.1; O2SAT 86–97; BMI 32.4
--- NOTE | 2025-05-07 12:54 | ECG_ITS ---
APPROVED REPORT Exam: Resting ECG HR:80 bpm ECG Measurements Heart Rate 80 AXES QRSd 218 QRS 177 QT 535 T 17 QTc 571 Conclusion ELECTRONIC VENTRICULAR PACEMAKER PROLONGED QT INTERVAL Electronically signed by : PONCHO CHENEY, 05/10/2025 23:35:31
--- OUTSIDE RECORDS SUMMARY | 2025-05-07 13:04 | XMS_ITS | Encounter Summary ---
Author Organization [employer] Address [address] [place] [address] Care Team Providers Care Professional Poker Player Name Role Phone Reji Castro MD Primary Care Provider [phone] Encounter Details Date Type Department Care Team (Late st Contact Info) Description 08/11/2021 Transcribed Document [facility] [place] Family Medicine [facility] [place] [address] ProviderDelvin MD [facility] [place] [address] Social History Tobacco Use Types Packs/Day Years [...] you, Noy Garrett, PharmD PGY-1 Resident Pager #[phone] documented in this encounter Plan of Treatment Not on file documented as of this encounter Visit Diagnoses Not on filedocumented in this encounter Care Teams Professional Poker Player Relationship Specialty Start Date End Date Reji Castro MD [address] [place] [address] PCP - General Adolescent Medicine 10/02/22 documented as of this encounter
--- OUTSIDE RECORDS SUMMARY | 2025-05-07 13:04 | XMS_ITS | Encounter Summary ---
Author Organization [employer] Address [address] [place] [address] Care Team Providers Care Wooden Fence Erector Name Role Phone Reji Castro MD Primary Care Provider [phone] Encounter Details Date Type Department Care Team (Late st Contact Info) Description 08/15/2021 Transcribed Document [facility] [place] Family Medicine [facility] [place] [address] ProviderDelvin MD [address] [place] [address] Social History Tobacco Use Types Packs/Day Years [...] Hold home meds SSI #Depression Celexa #Pain [place] 10 mg every 6 hours as needed [...] levothyroxine, 25 mcg= 1 Tab, Oral, Daily [place] 10 mg-325 mg oral tablet, 1 Tab, [...] # 0.58 x10(3)/uL (Low) 08/14/2021 16:02 EDT [place] % 7.1 % 08/15/2021 03:42 EDT [place] % 7.9 % 08/14/2021 16:02 EDT [place] # 0.50 K/uL 08/15/2021 03:42 EDT [place] # 0.53 K/uL 08/14/2021 16:02 EDT Eos [...] (Low) 08/14/2021 16:02 EDT Electronically signed by [facility], [facility] Conversion Police Detention Attendant Cerner at 03/09/2023 8:47 PM CDT documented in this encounter Plan of Treatment Not on file documented as of this encounter Visit Diagnoses Not on filedocumented in this encounter Care Teams Wooden Fence Erector Relationship Specialty Start Date End Date Reji Castro MD [address] [place] [address] PCP - General Adolescent Medicine 10/02/22 documented as of this encounter
--- OUTSIDE RECORDS SUMMARY | 2025-05-07 13:04 | XMS_ITS | Encounter Summary ---
Author Organization [employer] Address [address] [place] [address] Care Team Providers Care Order Dispatcher Chief Name Role Phone Reji Castro MD Primary Care Provider [phone] Encounter Details Date Type Department Care Team (Late st Contact Info) Description 08/15/2021 Transcribed Document [facility] [place] Family Medicine [facility] [place] [address] ProviderDelvin MD [address] [place] [address] Social History Tobacco Use Types Packs/Day Years [...] On: 08/15/2021 10:34 EDT by JULIO STEWART, RN-Tool Setter ED Care Management Progress Note Discharge Arrangements [...] : Clinical Condition of Patient JULIO STEWART, RN-Tool Setter ED - 08/18/2021 10:34 EDT Narrative Progress [...] will follow and send referrals as appropriate. UJLIO STEWART, RN-Tool Setter ED - 08/18/2021 10:34 EDT Electronically signed by Lanny [facility] Conversion Erosion Control Coordinator Cerner at 03/09/2023 8:33 PM CDT documented in this encounter Plan of Treatment Not on file documented as of this encounter Visit Diagnoses Not on filedocumented in this encounter Care Teams Order Dispatcher Chief Relationship Specialty Start Date End Date Reji Castro MD [address] [place] [address] PCP - General Adolescent Medicine 10/02/22 documented as of this encounter
--- OUTSIDE RECORDS SUMMARY | 2025-05-07 13:04 | XMS_ITS | Encounter Summary ---
Author Organization [email or web address] Address [address] [place] [address] Care Team Providers Care Biology Instructor Name Role Phone Reji Castro MD Primary Care Provider [phone] Encounter Details Date Type Department Care Team (Late st Contact Info) Description 08/11/2021 Transcribed Document [facility] [place] [address] [place], [place] [id number] ProviderDelvin MD [address] [place] [address] Social History Tobacco Use Types Packs/Day Years [...] Unaccompanied Legal Guardian : No Support Person/Patient Market Research Associate : Yes Support Person/Pt Rep Name : [...] 180 units of blood due to anemia, [facility] is why she has a port. Information Obtained From : Patient Primary Language : [place]se Communication Barrier : None Sales Representative Advertising Needed : No Cherri Webb RN - [...] Scale Risk Level : 0-24 Low Risk [place] Fall Interventions : Adequate lighting, Assistive devices [...] Source : Stated Height Entry Format : [place] Height, Feet : 5 ft(Converted to: 152 cm, 60 Inch) Height, Inches : 4 Inch(Converted to: 0 ft 4 Inch, 10.16 cm) Clinical Height : 162.56 cm Weight Source : Standing scale Weight Entry Format : [place] Clinical Dosing Weight : 86.39 kg Weight, Pounds : 190 lb Weight, Ounces : 1 oz Body Surface Area (BSA) : 1.92 m2 Body Mass Index : 32.7 kg/m2 (HI) [place] Body Weight : 54 kg Cherri Webb [...] Cherri Webb RN - 08/11/2021 23:11 EDT [place] Suicide Severity Rating Scale (C-SSRS) CSSRS Past [...] Items : Cell phone, Other: Cell Phone Tool Repair Technician Personal Items Disposition : Bedside Cherri Webb RN - 08/11/2021 23:11 EDT documented in this encounter Plan of Treatment Not on file documented as of this encounter Visit Diagnoses Not on filedocumented in this encounter Care Teams Biology Instructor Relationship Specialty Start Date End Date Reji Castro MD [address] [place] [address] PCP - General Adolescent Medicine 10/02/22 documented as of this encounter
--- OUTSIDE RECORDS SUMMARY | 2025-05-07 13:04 | XMS_ITS | Encounter Summary ---
Author Organization [employer] Address [address] [place] [address] Care Team Providers Care Sociology Adjunct Instructor Name Role Phone Reji Castro MD Primary Care Provider [phone] Encounter Details Date Type Department Care Team (Late st Contact Info) Description 08/26/[address] [facility] [place] Family Medicine [address] [place] [address] ProviderDelvin MD [address] [place] [address] Social History Tobacco Use Types Packs/Day Years [...] Warfarin HPI: 56 y/o F presenting to [facility] with history of COPD, atrial fibrillation, [...] 2). Daily INR Will followZeyad PharmD, BCPS [phone] Electronically signed by Lanny, [facility] Conversion Field Installer Cerner at 03/09/2023 8:52 PM CDT documented in this encounter Plan of Treatment Not on file documented as of this encounter Visit Diagnoses Not on filedocumented in this encounter Care Teams Sociology Adjunct Instructor Relationship Specialty Start Date End Date Reji Castro MD [address] [place] [id number] PCP - General Adolescent Medicine 10/02/22 documented as of this encounter
--- OUTSIDE RECORDS SUMMARY | 2025-05-07 13:04 | XMS_ITS | Encounter Summary ---
Author Organization [employer] Address [address] [place] [address] Care Team Providers Care Hearing Impaired Itinerant Teacher Name Role Phone Reji Castro MD Primary Care Provider [phone] Encounter Details Date Type Department Care Team (Late st Contact Info) Description 08/11/2021 Transcribed Document [facility] [place] Family Medicine [address] [place] [address] ProviderDelvin MD [address] [place] [address] Social History Tobacco Use Types Packs/Day Years [...] : Low risk (0) [place] Interventions : [place] precautions for safety used MARIPOSA JACQUES RN - 08/11/2021 18:46 EDT Electronically signed by Lanny [facility] Conversion Greeting Card Writer Cerner at 03/09/2023 8:46 PM CDT documented in this encounter Plan of Treatment Not on file documented as of this encounter Visit Diagnoses Not on filedocumented in this encounter Care Teams Hearing Impaired Itinerant Teacher Relationship Specialty Start Date End Date Reji Castro MD [address] [place] [id number] PCP - General Adolescent Medicine 10/02/22 documented as of this encounter
--- OUTSIDE RECORDS SUMMARY | 2025-05-07 13:04 | XMS_ITS | Encounter Summary ---
Author Organization [employer] Address [address] [place] [address] Care Team Providers Care Student Accounts Manager Name Role Phone Reji Castro MD Primary Care Provider [phone] Encounter Details Date Type Department Care Team (Late st Contact Info) Description 08/15/2021 Transcribed Document [facility] [place] Family Medicine [facility] [place] [address] ProviderDelvin MD [address] [place] [address] Social History Tobacco Use Types Packs/Day Years [...] Warfarin HPI: 56 y/o F presenting to [facility] with history of COPD, atrial [...] mg, 14 mL, 128 mL/Hr, IV Piggyback, [id number]. docusate-senna: 1 Tab, Oral, BID. famotidine: 20 [...] questions. Thank you, Andrea Moraes, PharmD PGY1 Evaporator Helper Pager: [phone], Ext. [phone] documented in this encounter Plan of Treatment Not on file documented as of this encounter Visit Diagnoses Not on filedocumented in this encounter Care Teams Student Accounts Manager Relationship Specialty Start Date End Date Reji Castro MD [address] [place] [address] PCP - General Adolescent Medicine 10/02/22 documented as of this encounter
--- OUTSIDE RECORDS SUMMARY | 2025-05-07 13:04 | XMS_ITS | Encounter Summary ---
Author Organization [employer] Address [address] [place] [address] Care Team Providers Care Top Coater Name Role Phone Reji Castro MD Primary Care Provider [phone] Encounter Details Date Type Department Care Team (Late st Contact Info) Description 08/15/[address] [facility] [place] [facility] [place] [address] ProviderDelvin MD [address] [place] [address] Social History Tobacco Use Types Packs/Day Years [...] Nataly Watkins RN - 08/15/2021 18:10 EDT documented in this encounter Plan of Treatment Not on file documented as of this encounter Visit Diagnoses Not on filedocumented in this encounter Care Teams Top Coater Relationship Specialty Start Date End Date Reji Castro MD [address] [place] [id number] PCP - General Adolescent Medicine 10/02/22 documented as of this encounter
--- OUTSIDE RECORDS SUMMARY | 2025-05-07 13:04 | XMS_ITS | Encounter Summary ---
Author Organization [employer] Address [address] [facility] [place] [address] Care Team Providers Care Field Trainer Name Role Phone Reji Castro MD Primary Care Provider [phone] Encounter Details Date Type Department Care Team (Late st Contact Info) Description 08/11/2021 Transcribed Document [facility] [place] [address] [place] [address] ProviderDelvin MD [address] [place] [address] Social History Tobacco Use Types Packs/Day Years [...] : 3 - Urgent Tracking Group : [facility] ED MICHAEL NAM RN - 08/11/2021 16:19 [...] 08/11/2021 16:25:12 EDT) Problems(Active) Amblyopia (SNOMED CT :2797030354 ) Name of Problem: Amblyopia ; Recorder: Whitney Razo RN; Confirmation: Confirmed ; Classification: Patient Stated ; Code: [id number] ; Contributor System: PowerChart ; Last Updated: 05/03/2014 19:25 EDT ; Life Cycle Date: 12/02/2013 ; Life Cycle Status: Active ; Vocabulary: SNOMED CT ; Comments: 12/02/2013 0:50 - Whitney Razo RN lazy eye blindness (left eye) Arthritis (SNOMED CT :3064104 ) Name of Problem: Arthritis ; Recorder: Whitney Razo RN; Confirmation: Confirmed ; Classification: Patient Stated ; Code: [id number] ; Contributor System: PowerChart ; Last Updated: 05/03/2014 19:25 EDT ; Life Cycle Date: 12/02/2013 ; Life Cycle Status: Active ; Vocabulary: SNOMED CT Atrial fibrillation (SNOMED CT :10533699 ) Name of Problem: Atrial fibrillation ; Recorder: Whitney Razo RN; Confirmation: Confirmed ; Classification: Patient Stated ; Code: 60105992 ; Contributor System: PowerChart ; Last Updated: 05/03/2014 19:25 EDT ; Life Cycle Date: 12/02/2013 ; Life Cycle Status: Active ; Vocabulary: SNOMED CT Back pain (PNED :[id number] ) Name of Problem: Back pain ; Recorder: Whitney Razo RN; Confirmation: Confirmed ; Classification: Patient Stated ; Code: [id number] ; Contributor System: PowerChart ; Last Updated: 05/07/2014 9:11 EDT ; Life Cycle Date: 12/02/2013 ; Life Cycle Status: Active ; Vocabulary: PNED Bowel obstruction (SNOMED CT :228167035 ) Name of Problem: Bowel obstruction ; Recorder: Whitney Razo RN; Confirmation: Confirmed ; Classification: Patient Stated ; Code: 621278411 ; Contributor System: PowerChart ; Last Updated: 05/03/2014 19:25 EDT ; Life Cycle Date: 12/02/2013 ; Life Cycle Status: Active ; Vocabulary: SNOMED CT Bronchitis (SNOMED CT :56050238 ) Name of Problem: Bronchitis ; Recorder: Whitney Razo RN; Confirmation: Confirmed ; Classification: Patient Stated ; Code: 36212588 ; Contributor System: PowerChart ; Last Updated: 05/03/2014 19:25 EDT ; Life Cycle Date: 12/02/2013 ; Life Cycle Status: Active ; Vocabulary: SNOMED CT Cardiac arrhythmia (SNOMED CT :1732965394 ) Name of Problem: Cardiac arrhythmia ; Recorder: Whitney Razo RN; Confirmation: Confirmed ; Classification: Patient Stated ; Code: 7452659196 ; Contributor System: PowerChart ; Last Updated: 05/03/2014 19:25 EDT ; Life Cycle Date: 12/02/2013 ; Life Cycle Status: Active ; Vocabulary: SNOMED CT Cardiomyopathy (SNOMED CT :601667081 ) Name of Problem: Cardiomyopathy ; Recorder: Whitney Razo RN; Confirmation: Confirmed ; Classification: Patient Stated ; Code: 961109046 ; Contributor System: PowerChart ; Last Updated: 05/03/2014 19:25 EDT ; Life Cycle Date: 12/02/2013 ; Life Cycle Status: Active ; Vocabulary: SNOMED CT COPD (SNOMED CT :31286999 ) Name of Problem: COPD ; Recorder: Whitney Razo RN; Confirmation: Confirmed ; Classification: Patient Stated ; Code: 20480633 ; Contributor System: PowerChart ; Last Updated: 05/07/2014 9:10 EDT ; Life Cycle Date: 12/02/2013 ; Life Cycle Status: Active ; Vocabulary: SNOMED CT Diabetes mellitus (SNOMED CT :292520225 ) Name of Problem: Diabetes mellitus ; Recorder: Whitney Razo RN; Confirmation: Confirmed ; Classification: Patient Stated ; Code: 893284911 ; Contributor System: PowerChart ; Last Updated: 05/03/2014 19:25 EDT ; Life Cycle Date: 12/02/2013 ; Life Cycle Status: Active ; Vocabulary: SNOMED CT Diabetes mellitus type II (SNOMED CT :02306068 ) Name of Problem: Diabetes mellitus type II ; Recorder: Whitney Razo RN; Confirmation: Confirmed ; Classification: Patient Stated ; Code: 54009000 ; Contributor System: PowerChart ; Last Updated: 05/07/2014 9:12 EDT ; Life Cycle Date: 12/02/2013 ; Life Cycle Status: Active ; Vocabulary: SNOMED CT Diverticulosis (SNOMED CT :3600868513 ) Name of Problem: Diverticulosis ; Recorder: Whitney Razo RN; Confirmation: Confirmed ; Classification: Patient Stated ; Code: 7585363462 ; Contributor System: PowerChart ; Last Updated: 05/03/2014 19:25 EDT ; Life Cycle Date: 12/02/2013 ; Life Cycle Status: Active ; Vocabulary: SNOMED CT Edema (SNOMED CT :410257935 ) Name of Problem: Edema ; Recorder: Whitney Razo RN; Confirmation: Confirmed ; Classification: Patient Stated ; Code: 521338130 ; Contributor System: PowerChart ; Last Updated: 05/03/2014 19:25 EDT ; Life Cycle Date: 12/02/2013 ; Life Cycle Status: Active ; Vocabulary: SNOMED CT ; Comments: 12/02/2013 1:45 - Whitney Razo RN BLE Fibromyalgia (SNOMED CT :26765331 ) Name of Problem: Fibromyalgia ; Recorder: Whitney Razo RN; Confirmation: Confirmed ; Classification: Patient Stated ; Code: 03449705 ; Contributor System: PowerChart ; Last Updated: [...] GERD - Gastro-esophageal reflux disease (SNOMED CT :6616795384 ) Name of Problem: GERD - Gastro-esophageal reflux disease ; Recorder: Whitney Razo RN; Confirmation: Confirmed ; Classification: Patient Stated ; Code: 6309922482 ; Contributor System: PowerChart ; Last Updated: 05/07/2014 9:09 EDT ; Life Cycle Date: 12/02/2013 ; Life Cycle Status: Active ; Vocabulary: SNOMED CT Heart failure (SNOMED CT :268715604 ) Name of Problem: Heart failure ; Recorder: Whitney Razo RN; Confirmation: Confirmed ; Classification: Patient Stated ; Code: 888971837 ; Contributor System: PowerChart ; Last Updated: 05/03/2014 19:25 EDT ; Life Cycle Date: 12/02/2013 ; Life Cycle Status: Active ; Vocabulary: SNOMED CT Heart valve (SNOMED CT :483981847 ) Name of Problem: Heart valve ; Recorder: Whitney Razo RN; Confirmation: Confirmed ; Classification: Patient Stated ; Code: 216497329 ; Contributor System: PowerChart ; Last Updated: 05/07/2014 9:14 EDT ; Life Cycle Date: 12/02/2013 ; Life Cycle Status: Active ; Vocabulary: SNOMED CT Hepatomegaly (SNOMED CT :064440468 ) Name of Problem: Hepatomegaly ; Recorder: Whitney Razo RN; Confirmation: Confirmed ; Classification: Patient Stated ; Code: 740787471 ; Contributor System: PowerChart ; Last Updated: 05/03/2014 19:25 EDT ; Life Cycle Date: 12/02/2013 ; Life Cycle Status: Active ; Vocabulary: SNOMED CT High blood pressure (SNOMED CT :66095311 ) Name of Problem: High blood pressure ; Recorder: Whitney Razo RN; Confirmation: Confirmed ; Classification: Patient Stated ; Code: 29563278 ; Contributor System: PowerChart ; Last Updated: 05/03/2014 19:25 EDT ; Life Cycle Date: 12/02/2013 ; Life Cycle Status: Active ; Vocabulary: SNOMED CT Hyperlipidemia (SNOMED CT :15514999 ) Name of Problem: Hyperlipidemia ; Recorder: Whitney Razo RN; Confirmation: Confirmed ; Classification: Patient Stated ; Code: 28233987 ; Contributor System: PowerChart ; Last Updated: 05/03/2014 19:25 EDT ; Life Cycle Date: 12/02/2013 ; Life Cycle Status: Active ; Vocabulary: SNOMED CT Lazy eye (SNOMED CT :022677098 ) Name of Problem: Lazy eye ; Recorder: Whitney Razo RN; Confirmation: Confirmed ; Classification: Patient Stated ; Code: 993408708 ; Contributor System: PowerChart ; Last Updated: 05/03/2014 19:25 EDT ; Life Cycle Date: 12/02/2013 ; Life Cycle Status: Active ; Vocabulary: SNOMED CT ; Comments: 12/02/2013 0:49 - Whitney Razo RN lazy eye blindness (left eye) Myocardial infarction (SNOMED CT :95858203 ) Name of Problem: Myocardial infarction ; Recorder: Whitney Razo RN; Confirmation: Confirmed ; Classification: Patient Stated ; Code: 27766179 ; Contributor System: PowerChart ; Last Updated: [...] Cycle Status: Active Ovarian cyst (SNOMED CT :062217170 ) Name of Problem: Ovarian cyst ; Recorder: Whitney Razo RN; Confirmation: Confirmed ; Classification: Patient Stated ; Code: 073740956 ; Contributor System: PowerChart ; Last Updated: 05/03/2014 19:25 EDT ; Life Cycle Date: 12/02/2013 ; Life Cycle Status: Active ; Vocabulary: SNOMED CT Renal calculus (SNOMED CT :484745858 ) Name of Problem: Renal calculus ; Recorder: Whitney Razo RN; Confirmation: Confirmed ; Classification: Patient Stated ; Code: 919308175 ; Contributor System: PowerChart ; Last Updated: 05/03/2014 19:25 EDT ; Life Cycle Date: 12/02/2013 ; Life Cycle Status: Active ; Vocabulary: SNOMED CT Restless legs syndrome (SNOMED CT :06327001 ) Name of Problem: Restless legs syndrome ; Recorder: Whitney Razo RN; Confirmation: Confirmed ; Classification: Patient Stated ; Code: 57800332 ; Contributor System: PowerChart ; Last Updated: 05/03/2014 19:25 EDT ; Life Cycle Date: 12/02/2013 ; Life Cycle Status: Active ; Vocabulary: SNOMED CT Thyroid disease (SNOMED CT :163826690 ) Name of Problem: Thyroid disease ; Recorder: Whitney Razo RN; Confirmation: Confirmed ; Classification: Patient Stated ; Code: 270391075 ; Contributor System: PowerChart ; Last Updated: 05/03/2014 19:25 EDT ; Life Cycle Date: 12/02/2013 ; Life Cycle Status: Active ; Vocabulary: SNOMED CT Diagnoses(Active) Medical screening exam Date: 08/11/2021 ; Diagnosis Type: Reason For Visit ; Confirmation: Complaint of ; Clinical Dx: Medical screening exam ; Classification: Medical ; Clinical Service: Emergency medicine ; Code: PNED ; Probability: 0 ; Diagnosis Code: [id number] ED Height and Weight Height Source : Stated Height Entry Format : [place] Height, Feet : 5 ft(Converted to: 152 cm, 60 Inch) Height, Inches : 4 Inch(Converted to: 0 ft 4 Inch, 10.16 cm) Clinical Height : 162.56 cm Weight Source, ED : Critical estimated dosing weight Weight Entry Format : [place] Weight, Pounds : 190 lb Clinical Dosing Weight : 86.36 kg Body Surface Area (BSA) : 1.92 m2 Body Mass Index : 32.7 kg/m2 (HI) [place] Body Weight (IBW) : 54.3 kg MICHAEL NAM RN - 08/11/2021 16:19 EDT documented in this encounter Plan of Treatment Not on file documented as of this encounter Visit Diagnoses Not on filedocumented in this encounter Care Teams Field Trainer Relationship Specialty Start Date End Date Reji Castro MD [address] [place] [id number] PCP - General Adolescent Medicine 10/02/22 documented as of this encounter
--- OUTSIDE RECORDS SUMMARY | 2025-05-07 13:04 | XMS_ITS | Encounter Summary ---
Author Organization [employer] Address [address] [place] [address] Care Team Providers Care Refinery Operator Polymerization Plant Name Role Phone Reji Castro MD Primary Care Provider [phone] Encounter Details Date Type Department Care Team (Late st Contact Info) Description 08/26/2021 Transcribed Document [facility] [place] [address] [place] [address] ProviderDelvin MD [address] [place] [address] Social History Tobacco Use Types Packs/Day Years Used Date Smoking Tobacco: Never Assessed Comments Unknown Sex and Gender Information Value Date Recorded Sex Assigned at Not on file Legal Sex Female 4:32 PM CDT Gender Identity Not on file Sexual Orientation Not on file documented as of this encounter Miscellaneous Notes * Cerner Conversion Note - Delvin ProviderMD - 08/26/2021 2:00 AM CDT Shot Coat Tender Details Entered On: 08/26/2021 4:16 EDT Performed [...] on filedocumented in this encounter Care Teams Refinery Operator Polymerization Plant Relationship Specialty Start Date End Date Reji Castro MD [address] [place] [id number] PCP - General Adolescent Medicine 10/02/22 documented as of this encounter
--- OUTSIDE RECORDS SUMMARY | 2025-05-07 13:04 | XMS_ITS | Encounter Summary ---
Author Organization [employer] Address [address] [place] [address] Care Team Providers Care Producer Assistant Name Role Phone Reji Castro MD Primary Care Provider [phone] Encounter Details Date Type Department Care Team (Late st Contact Info) Description 08/11/2021 Transcribed Document [facility] [place] [facility] [place] [address] ProviderDelvin MD [address] [place] [id number] Social History Tobacco Use Types Packs/Day Years Used Date Smoking Tobacco: Never Assessed Comments Unknown Sex and Gender Information Value Date Recorded Sex Assigned at Not on file Legal Sex Female 4:32 PM CDT Gender Identity Not on file Sexual Orientation Not on file documented as of this encounter Miscellaneous Notes * Cerner Conversion Note - Delvin ProviderMD - 08/11/2021 6:54 PM CDT Patient: IRINA [...] pin. Replacement, mitral valve, with cardiopulmonary bypass (26335). sternotomy. hernia repair, abdominal. sigmoid colon resection. Tendon sheath incision (eg, for trigger finger) (80013). jaw surgery, left. great toe surger, left. [...] % LOW Lymph # 0.76 K/uL LOW [place] % 8.9 % [place] # 0.61 K/uL Eos % 4.4 % Eos # 0.30 Baso % 0.4 % Baso # 0.03 Slide Review No PT 18.9 Second(s) HI INR 1.8 HI PTT 39.6 Second(s) HI Urine Type U CleanCatch Urine Color Yellow Urine Appearance Clear Urine Specific [place] 1.007 Urine pH Dipstick 6.5 Urine Leukocyte Esterase Negative Urine Nitrite Negative Urine Protein Dipstick Negative Urine Glucose Dipstick Negative Urine Ketones Dipstick Negative Urine Urobilinogen Dipstick 0.2 EU/dL Urine Bilirubin Dipstick Negative Urine Blood Dipstick Negative Ur WBC None Seen /HPF Ur Squamous Epithelial Cells 0-2 /HPF . Radiology results: Radiology Results (Last 48 hours) [id number] -- 08/11/2021 16:16 CR Chest 1 Vw [...] treatment plan, Patient indicated understanding of instructions. Electronically signed by Stevie Ca Conversion Civil Engineering Design Draftsperson Cerner at 03/09/2023 8:55 PM CDT documented in this encounter Plan of Treatment Not on file documented as of this encounter Visit Diagnoses Not on filedocumented in this encounter Care Teams Producer Assistant Relationship Specialty Start Date End Date Reji Castro MD [address] [place] [id number] PCP - General Adolescent Medicine 10/02/22 documented as of this encounter
--- OUTSIDE RECORDS SUMMARY | 2025-05-07 13:04 | XMS_ITS | Encounter Summary ---
Author Organization [employer] Address [address] [place] [address] Care Team Providers Care Professor Of Fine Art Name Role Phone Reji Castro MD Primary Care Provider [phone] Encounter Details Date Type Department Care Team (Late st Contact Info) Description 08/15/2021 Transcribed Document [facility] [place] [facility] [place] [address] ProviderDelvin [place] [address] Social History Tobacco Use Types Packs/Day Years [...] her port could not be accessed. Her e m assembler aspirated fluid from the port that was [...] antibiotics. On 08/08 she presented to a [facility] after she developed severe CHEUNG and myalgias w/o prominent fever. She was subsequently contacted and told to report to [facility] because she had + blood cutures concerning for an infected portacath +/- PVE. 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 Review of Systems ROS reviewed as documented in chart Health Status Current medications: (Selected) Inpatient Medications Ordered ALPRAZolam: 0.5 mg, Oral, TID, PRN: Anxiety CeleXA: 40 mg, Oral, Daily Coumadin: 6 mg, Oral, Daily Coumadin: 7.5 mg, Oral, Daily DAPTOmycin + Sodium Chloride 0.9% intravenous solution 50 mL: 700 mg, 14 mL, 128 mL/Hr, IV Piggyback, [id number] Dextrose 50% injection: 12.5 Gram, IV Push, Q15Min, PRN: Other (See Comment) Dextrose 50% injection: 25 Gram, IV Push, Q15Min, PRN: Other (See Comment) Dextrose 50% injection: 25 Gram, IV Push, Q15Min, PRN: Other (See Comment) Dextrose 50% injection: 25 Gram, IV Push, Q15Min, PRN: Other (See Comment) Lactated Ringers Injection intravenous solution 1,000 mL: 20 mL/Hr, IntraVENous [place] 10 mg-325 mg oral tablet: 1 Tab, [...] tenderness, No swelling, No deformity. Integumentary: Warm, [place]. Neurologic: Alert, Oriented, No focal deficits. Psychiatric: [...] of paula cath Electronically signed by Lanny [facility] Conversion Regional Wildlife Agent Cerner at 03/09/2023 8:49 PM CDT documented in this encounter Plan of Treatment Not on file documented as of this encounter Visit Diagnoses Not on filedocumented in this encounter Care Teams Professor Of Fine Art Relationship Specialty Start Date End Date Reji Castro MD [address] [place] [id number] PCP - General Adolescent Medicine 10/02/22 documented as of this encounter
--- OUTSIDE RECORDS SUMMARY | 2025-05-07 13:04 | XMS_ITS | Encounter Summary ---
Author Organization [employer] Address [address] [place] [address] Care Team Providers Care Heavy Truck Technician Name Role Phone Reji Castro MD Primary Care Provider [phone] Encounter Details Date Type Department Care Team (Late st Contact Info) Description 08/11/2021 Transcribed Document [facility] [place] [address] ProviderDelvin MD [address] [place] [id number] Social History Tobacco Use Types Packs/Day Years [...] action required X1 Electronically signed by Lanny [facility] Conversion Industrial Relations Analyst Cerner at 03/09/2023 8:45 PM CDT documented in this encounter Plan of Treatment Not on file documented as of this encounter Visit Diagnoses Not on filedocumented in this encounter Care Teams Heavy Truck Technician Relationship Specialty Start Date End Date Reji Castro MD [address] [place] [id number] PCP - General Adolescent Medicine 11/11/22 documented as of this encounter
--- OUTSIDE RECORDS SUMMARY | 2025-05-07 13:04 | XMS_ITS | Encounter Summary ---
Author Organization [employer] Address [address] [place] [address] Care Team Providers Care Vp Emerging Media Name Role Phone Reji Castro MD Primary Care Provider [phone] Encounter Details Date Type Department Care Team (Late st Contact Info) Description 08/11/2021 Transcribed Document [facility] [place] Family Medicine [address] [place] [address] ProviderDelvin MD [facility] [place] [address] Social History Tobacco Use Types Packs/Day Years [...] CARE BEDSIDE NON-EXEMPT - 08/11/2021 22:44 EDT documented in this encounter Plan of Treatment Not on file documented as of this encounter Visit Diagnoses Not on filedocumented in this encounter Care Teams Vp Emerging Media Relationship Specialty Start Date End Date Reji Castro MD [address] [place] [address] PCP - General Adolescent Medicine 10/02/22 documented as of this encounter
--- OUTSIDE RECORDS SUMMARY | 2025-05-07 13:04 | XMS_ITS | Encounter Summary ---
Author Organization [employer] Address [address] [place] [address] Care Team Providers Care Medical Terminologist Name Role Phone Reji Castro MD Primary Care Provider + [phone] Encounter Details Date Type Department Care Team (Late st Contact Info) Description 08/15/2021 Transcribed Document [facility] [place] [facility] [place] [address] ProviderDelvin MD [address] [place] [id number] Social History Tobacco Use Types Packs/Day Years [...] mL - 700 mg, IV Piggyback, Inj, [id number], infuse over 30 Minute(s), Routine Cardiovascular metoprolol [...] PRN for Pain (Severe 7-10), Routine acetaminophen-hydrocodone ([place] 10 mg-325 mg oral tablet) - 1 [...] 06:00) SBP 102 (AUG 15 09:37) 91 ([facility] 06:00) 108 ([facility] 17:21) DBP 61 (AUG 15 09:37) L 54 (AUG 15 06:00) 76 ([facility] 17:21) MAP 81 (AUG 15 09:37) 68 ([facility] 03:00) 86 ([facility] 17:21) SpO2 94 (AUG 15 06:00) L 91 ([facility] 22:00) 97 ([facility] 03:00) General: No acute distress. Eye: Extraocular [...] on filedocumented in this encounter Care Teams Medical Terminologist Relationship Specialty Start Date End Date Reji Castro MD [address] [place] [id number] PCP - General Adolescent Medicine 10/02/22 documented as of this encounter
--- OUTSIDE RECORDS SUMMARY | 2025-05-07 13:04 | XMS_ITS | Encounter Summary ---
Author Organization [employer] Address [address] [place] [address] Care Team Providers Care Gate Guard Name Role Phone Reji Castro MD Primary Care Provider [phone] Encounter Details Date Type Department Care Team (Late st Contact Info) Description 08/20/2021 Transcribed Document [facility] [place] [address] [place] [address] ProviderDelvin MD [address] [place] [address] Social History Tobacco Use Types Packs/Day Years [...] on filedocumented in this encounter Care Teams Gate Guard Relationship Specialty Start Date End Date Reji Castro MD [address] [place] [id number] PCP - General Adolescent Medicine 10/02/22 documented as of this encounter
--- OUTSIDE RECORDS SUMMARY | 2025-05-07 13:05 | XMS_ITS | Encounter Summary ---
Author Organization [employer] Address [address] [place] [address] Care Team Providers Care Crane Crew Supervisor Name Role Phone Reji Castro MD Primary Care Provider [phone] Encounter Details Date Type Department Care Team (Late st Contact Info) Description 08/15/2021 Transcribed Document [facility] [place] [address] [place] [address] ProviderDelvin MD [address] [place] [address] Social History Tobacco Use Types Packs/Day Years [...] on filedocumented in this encounter Care Teams Crane Crew Supervisor Relationship Specialty Start Date End Date Reji Castro MD [address] [place] [id number] PCP - General Adolescent Medicine 10/02/22 documented as of this encounter
--- OUTSIDE RECORDS SUMMARY | 2025-05-07 13:05 | XMS_ITS | Encounter Summary ---
Author Organization [employer] Address [address] [place] [address] Care Team Providers Care Child Care Attendant School Name Role Phone Reji Castro MD Primary Care Provider [phone] Encounter Details Date Type Department Care Team (Late st Contact Info) Description 08/19/2021 Transcribed Document [facility] [place] Family Medicine [facility] [place] [address] ProviderDelvin MD [facility] [address] Social History Tobacco Use Types Packs/Day Years [...] # 0.34 x10(3)/uL (Low) 08/19/2021 11:[address] % 7.3 % 08/19/2021 11:[address] # 0.79 K/uL 08/19/2021 11:06 EDT Eos [...] (High) 08/18/2021 18:32 EDT Electronically signed by [facility], [facility] Conversion Liquefaction And Regasification Helper Cerner at 03/09/2023 8:42 PM CDT documented in this encounter Plan of Treatment Not on file documented as of this encounter Visit Diagnoses Not on filedocumented in this encounter Care Teams Child Care Attendant School Relationship Specialty Start Date End Date Rjei Castro MD [address] [place] [address] PCP - General Adolescent Medicine 10/02/22 documented as of this encounter
--- OUTSIDE RECORDS SUMMARY | 2025-05-07 13:05 | XMS_ITS | Encounter Summary ---
Author Organization [employer] In [employer] Address [address] [place] [address] Care Team Providers Care Power Hammer Operator Name Role Phone Reji Castro MD Primary Care Provider + [phone] Encounter Details Date Type Department Care Team (Late st Contact Info) Description 08/12/2021 Transcribed Document [facility] [place] [facility] [address] ProviderDelvin MD [address] [place] [address] Social History Tobacco Use Types Packs/Day Years [...] difficulty recalling timeline of events. Discharged from [facility] approximately 3 weeks ago after being [...] mmol/L (Low) 08/11/2021 17:59 EDT Sodium Ur Hay 29 mMole/Liter 08/12/2021 03:40 EDT Troponin I [...] # 0.76 K/uL (Low) 08/11/2021 17:59 EDT [place] % 9.5 % 08/12/2021 00:22 EDT [place] % 8.9 % 08/11/2021 17:59 EDT [place] # 0.64 K/uL 08/12/2021 00:22 EDT [place] # 0.61 K/uL 08/11/2021 17:59 EDT Eos [...] Appearance CLEAR2 08/11/2021 17:59 EDT Urine Specific [place] 1.007 08/11/2021 17:59 EDT Urine pH Dipstick [...] Negative2 08/11/2021 19:38 EDT Electronically signed by [facility] Conversion Sailing Instructor Cerner at 03/09/2023 9:01 PM CDT documented in this encounter Plan of Treatment Not on file documented as of this encounter Visit Diagnoses Not on filedocumented in this encounter Care Teams Power Hammer Operator Relationship Specialty Start Date End Date Reji Castro MD [address] [place] [id number] PCP - General Adolescent Medicine 10/02/22 documented as of this encounter
--- OUTSIDE RECORDS SUMMARY | 2025-05-07 13:05 | XMS_ITS | Encounter Summary ---
Author Organization [employer] Address [address] [facility] [place] [address] Care Team Providers Care Board Turner Name Role Phone Reji Castro MD Primary Care Provider [phone] Encounter Details Date Type Department Care Team (Late st Contact Info) Description 08/14/2021 Transcribed Document [facility] [place] [facility] [place] [address] ProviderDelvin MD [address] [place] [address] Social History Tobacco Use Types Packs/Day Years [...] # 0.71 x10(3)/uL (Low) 08/13/2021 23:47 EDT [place] % 10.6 % (High) 08/13/2021 23:47 EDT [place] # 0.58 K/uL 08/13/2021 23:47 EDT Eos [...] (Low) 08/13/2021 18:40 EDT Electronically signed by [facility], [facility] Conversion Product Introduction Manager Cerner at 03/09/2023 8:59 PM CDT documented in this encounter Plan of Treatment Not on file documented as of this encounter Visit Diagnoses Not on filedocumented in this encounter Care Teams Board Turner Relationship Specialty Start Date End Date Reji Castro MD [address] [place] [address] PCP - General Adolescent Medicine 10/02/22 documented as of this encounter
--- OUTSIDE RECORDS SUMMARY | 2025-05-07 13:05 | XMS_ITS | Encounter Summary ---
Author Organization [employer] Address [address] [place] [address] Care Team Providers Care Catering Coordinator Name Role Phone Reji Castro MD Primary Care Provider [phone] Encounter Details Date Type Department Care Team (Late st Contact Info) Description 08/26/2021 Transcribed Document [facility] [place] Family Medicine [address] [place] [address] ProviderDelvin MD [address] [place] [address] Social History Tobacco Use Types Packs/Day Years [...] 08/26/2021 4:16 EDT Electronically signed by L[facility] Conversion Copy Worker Cerner at 03/09/2023 8:32 PM CDT documented in this encounter Plan of Treatment Not on file documented as of this encounter Visit Diagnoses Not on filedocumented in this encounter Care Teams Catering Coordinator Relationship Specialty Start Date End Date Reji Castro MD [address] [place] [id number] PCP - General Adolescent Medicine 10/02/22 documented as of this encounter
--- OUTSIDE RECORDS SUMMARY | 2025-05-07 13:05 | XMS_ITS | Encounter Summary ---
Author Organization [employer] Address [address] [place] [address] Care Team Providers Care Senior Test Engineer Name Role Phone Reji Castro MD Primary Care Provider [phone] Encounter Details Date Type Department Care Team (Late st Contact Info) Description 08/25/2021 Transcribed Document [facility] [place] Family Medicine [address] [place] [address] ProviderDelvin MD [address] [place] [address] Social History Tobacco Use Types Packs/Day Years [...] Patient stated she has chest pain, called ACCOUNTS PAYABLE COORDINATOR Team, called md. Vitals signs stable. Put zoll on patient. Stat ekg ordered, cxr and troponin. Patient transferred to [facility]. WILLIAMS HANEY RN - 08/25/2021 11:02 EDT documented in this encounter Plan of Treatment Not on file documented as of this encounter Visit Diagnoses Not on filedocumented in this encounter Care Teams Senior Test Engineer Relationship Specialty Start Date End Date Reji Castro MD [address] [place] [address] PCP - General Adolescent Medicine 10/02/22 documented as of this encounter
--- OUTSIDE RECORDS SUMMARY | 2025-05-07 13:05 | XMS_ITS | Encounter Summary ---
Author Organization [employer] Address [address] [place] [address] Care Team Providers Care Pellet Mill Operator Name Role Phone Reji Castro MD Primary Care Provider + [phone] Encounter Details Date Type Department Care Team (Late st Contact Info) Description 08/19/[address] [facility] [place] [facility] [place] [address] ProviderDelvin MD [address] [place] [address] Social History Tobacco Use Types Packs/Day Years [...] on filedocumented in this encounter Care Teams Pellet Mill Operator Relationship Specialty Start Date End Date Reji Castro MD [address] [place] [id number] PCP - General Adolescent Medicine 10/02/22 documented as of this encounter
--- OUTSIDE RECORDS SUMMARY | 2025-05-07 13:05 | XMS_ITS | Encounter Summary ---
Author Organization [employer] Address [address] [place] [address] Care Team Providers Care Rough And Truing Machine Operator Name Role Phone Reji Saldaña MD Primary Care Provider + [phone] Encounter Details Date Type Department Care Team (Late st Contact Info) Description 08/14/2021 Transcribed Document [facility] [place] Family Medicine [address] [place] [address] ProviderDelvin MD [facility] [place] [address] Social History Tobacco Use Types Packs/Day Years [...] On: 08/14/2021 16:00 EDT by ALFREDO SEQUEIRA, RN-Radio Producer Initial Assessment I Previously Documented Living Environment [...] Patient's Home Caregiver Medical Durable Power of Kickboxing Instructor Name : No Legal Guardian : No ALFREDO SEQUEIRA RN-Radio Producer - 08/15/2021 8:27 EDT Initial Assessment II Sensory and Motor Deficits : None Current Home Treatments and Equipment : None ALFREDO SEQUEIRA RN-Radio Producer - 08/15/2021 8:27 EDT Discharge Needs I Anticipated Discharge Date : 08/16/2021 EDT Anticipated Discharge To, CM : Home with home health, Home with infusion therapy Current Home Treatment/Equipment : Current Home Treatment/Equipment No qualifying data available. Post Acute/Home Treatments : None Documentation Status Complete : Yes ALFREDO SEQUEIRA RN-Radio Producer - 08/15/2021 8:27 EDT Discharge Needs II Professional Skilled Services : Professional Skilled Services No qualifying data available. Needs Assistance with Transportation : No Discharge Options Discussed with Patient : DME, Home Health, Short term rehabilitation ALFREDO SEQUEIRA RN-Radio Producer - 08/15/2021 8:27 EDT Narrative Note Historical Narrative Note : rrs low boost 5 patient was admitted for staph infection /port removal . consults to neph, surg,ID. CHUCHO negative . patient 56 years old lives alone and is independent. patient face sheet address is wrong now address is : [address] [place]. patient denied need for dme. possible need for hh she thinks [facility] is the only one in her area. patient states she might need 4 weeks IV abx . patient is agreeable to hh and iv abx at home . cm will follow ALFREDO SEQUEIRA RN-Radio Producer - 08/15/21 08:39:27 Narrative Note : rrs low boost 5 patient was admitted for staph infection /port removal . consults to neph, surg,ID. CHUCHO negative . patient 56 years old lives alone and is independent. patient face sheet address is wrong now address is : [address] [place]. patient denied need for dme. possible need for hh she thinks [facility] is the only one in her area. patient states she might need 4 weeks IV abx . patient is agreeable to hh and iv abx at home . family will transport . cm will follow HUA, ALFREDO K, RN-Radio Producer - 08/15/2021 8:40 EDT Electronically signed by L[facility] Conversion Distribution Systems Superintendent Cerner at 03/09/2023 8:51 PM CDT documented in this encounter Plan of Treatment Not on file documented as of this encounter Visit Diagnoses Not on filedocumented in this encounter Care Teams Rough And Truing Machine Operator Relationship Specialty Start Date End Date Reji Saldaña MD [address] [place] [address] PCP - General Adolescent Medicine 10/02/22 documented as of this encounter
--- OUTSIDE RECORDS SUMMARY | 2025-05-07 13:05 | XMS_ITS | Encounter Summary ---
Author Organization [employer] Address [address] [place] [address] Care Team Providers Care Imaging Assistant Name Role Phone Reji Castro MD Primary Care Provider [phone] Encounter Details Date Type Department Care Team (Late st Contact Info) Description 08/19/2021 Transcribed Document [facility] [place] Family Medicine [address] [place] [address] ProviderDelvin MD [address] [place] [address] Social History Tobacco Use Types Packs/Day Years [...] Celestin MD - 08/19/2021 7:30 AM CDT [facility] Main OR Preop Summary Primary Physician: NENA PEARSON MD-[facility] Finalized Date/Time: 08/19/21 07:37:55 Pt. Name: IRINA TAMAYO/Sex: 1965 Female Med Rec #: [id number] Physician: VINCE BELLO MD Financial #: [id number] Pt. Type: I Room/Bed: 454/1 Admit/Disch: 08/11/21 21:21:00 - Institution: [facility] PreOp Case Times Entry 1 In Preop 08/19/21 05:49:00 Ready for Holding n/a Room Patient Ready for 08/19/21 06:35:00 Surgery Patient Out of Preop 08/19/21 07:33:00 Patient Out of n/a Holding Room Last Modified By: Merle Hicks Rn 08/19/21 07:37:50 [facility] PreOp Case Times Audit 08/19/21 07:37:50 Haul Driver: [email or web address] Modifier: MFWARD <+> 1 Patient Out of Preop Finalized By: Merle Hicks Rn Document Signatures Signed By: Merle Hicks Rn 08/19/21 07:37 Electronically signed by Lanny [facility] Conversion Research Laboratory Technician Cerner at 03/09/2023 8:32 PM CDT documented in this encounter Plan of Treatment Not on file documented as of this encounter Visit Diagnoses Not on filedocumented in this encounter Care Teams Imaging Assistant Relationship Specialty Start Date End Date Reji Castro MD [address] [place] [address] PCP - General Adolescent Medicine 10/02/22 documented as of this encounter
--- OUTSIDE RECORDS SUMMARY | 2025-05-07 13:05 | XMS_ITS | Encounter Summary ---
Author Organization [employer] Address [address] [place] [address] Care Team Providers Care Value Analysis Coordinator Name Role Phone Reji Castro MD Primary Care Provider [phone] Encounter Details Date Type Department Care Team (Late st Contact Info) Description 08/16/2021 Transcribed Document [facility] Radiology [address] [place] [address] Loren Solorzano MD [address] [place] [address] [place] [id number] Social History Tobacco Use Types Packs/Day Years [...] mg, 14 mL, 128 mL/Hr, IV Piggyback, [id number] Dextrose 50% injection: 12.5 Gram, IV Push, [...] mL 700 mg 14 mL, IV Piggyback, Z31OSrv famotidine 20 mg tab 20 mg 1 [...] Bioprosthetic mitral valve replacement / SNOMED CT 328340350 / Confirmed Chronic kidney disease / SNOMED CT 6901416391 / Confirmed COPD - Chronic obstructive pulmonary disease / SNOMED CT 229901072 / Confirmed History of obstructive sleep apnea / IMO 09100572 / Confirmed HLD - Hyperlipidemia / SNOMED CT 418729102 / Confirmed HTN - Hypertension / SNOMED CT 0558680936 / Confirmed Canceled: Atrial fibrillation / SNOMED CT 34694513, Active Problems (25) AIHA (autoimmune hemolytic anemia) [...] hrs) Last Charted Minimum Maximum Temp 98 ([facility] 10:50) 97.6 ([facility] 06:00) 98 ([facility] 18:00) Apical HR 76 ([facility] 20:32) 76 ([facility] 20:32) 76 ([facility] 20:32) Mon HR 81 ([facility] 10:50) 67 ([facility] 14:52) 85 ([facility] 18:00) Resp Rate 18 ([facility] 10:50) 14 ([facility] 23:00) 19 ([facility] 18:00) SBP 112 ([facility] 10:50) 95 ([facility] 14:52) 114 ([facility] 23:00) DBP 60 ([facility] 10:50) L 45 ([facility] 14:52) 63 ([facility] 18:00) MAP 74 ([facility] 10:50) 63 ([facility] 23:00) 83 ([facility] 18:00) SpO2 97 ([facility] 10:50) L 92 ([facility] 14:52) 99 ([facility] 03:39) General: Alert and oriented, No acute [...] EDT BIN HERNANDEZ, DO-INT Discontinued Medications: acetaminophen-hydrocodone ([place] 10 mg-325 mg oral tablet) 1 Tab, Oral, Tab, Q6H, PRN for Pain (Moderate 4-6), Routine, Start 08/15/21 10:11:00 EDT BIN HERNANDEZ, DO-INT acetaminophen-oxyCODONE (acetaminophen-oxyCODONE 325 mg-10 mg [...] Hold home meds SSI #Depression Celexa #Pain [place] 10 mg every 6 hours as needed [...] on filedocumented in this encounter Care Teams Value Analysis Coordinator Relationship Specialty Start Date End Date Reji Castro MD [address] [place] [address] PCP - General Adolescent Medicine 10/02/22 documented as of this encounter
--- OUTSIDE RECORDS SUMMARY | 2025-05-07 13:05 | XMS_ITS | Encounter Summary ---
Author Organization [employer] Address [address] [place] [address] Care Team Providers Care Analytics Manager Name Role Phone Reji Castro MD Primary Care Provider + [phone] Encounter Details Date Type Department Care Team (Late st Contact Info) Description 08/19/2021 Transcribed Document [facility] [place] [facility] [place] [address] ProviderDelvin MD [address] [place] [address] Social History Tobacco Use Types Packs/Day Years [...] Phlebosclerosis. PROCEDURE PERFORMED: Right IJ PowerPort placement. STEEL RULE INSPECTOR: Cherri Ya. ANESTHESIA: Local MAC. FINDINGS: An 8-Italian single lumen PowerPort was placed using a [...] and J-wire followed by passage of the 8-Italian single-lumen catheter. Once again, fluoroscopy was used [...] taken to the Recovery in stable condition. /[id number] MD DOTTIE Pollard/TONYA / DOTTIE / KENDRA /[id number] Electronically signed by Lanny [facility] Conversion Chief Operator Synthesis Cerner at 03/09/2023 8:44 PM CDT documented in this encounter Plan of Treatment Not on file documented as of this encounter Visit Diagnoses Not on filedocumented in this encounter Care Teams Analytics Manager Relationship Specialty Start Date End Date Reji Castro MD [address] [place] [address] PCP - General Adolescent Medicine 10/02/22 documented as of this encounter
--- OUTSIDE RECORDS SUMMARY | 2025-05-07 13:05 | XMS_ITS | Encounter Summary ---
Author Organization [employer] Address [address] [place] [address] Care Team Providers Care Vocational Rehabilitation Supervisor Name Role Phone Reji Castro MD Primary Care Provider [phone] Encounter Details Date Type Department Care Team (Late st Contact Info) Description 08/25/2021 Transcribed Document [facility] [place] [address] [place] [address] ProviderDelvin MD [address] [place] [address] Social History Tobacco Use Types Packs/Day Years [...] than 8. she tells me that her blocklayer has recommended she stay above 8 for [...] cefTRIAXone: 2 Gram, 100 mL/Hr, IV Piggyback, S30COvr diphenhydrAMINE: 25 mg, Oral, Q6H, PRN: Itching [...] Oral, BID cefTRIAXone 2 Gram, IV Piggyback, [id number] citalopram 20 mg tab 40 mg 2 [...] Bioprosthetic mitral valve replacement / SNOMED CT 306986117 / Confirmed Chronic kidney disease / SNOMED CT 3517845210 / Confirmed COPD - Chronic obstructive pulmonary disease / SNOMED CT 708882729 / Confirmed History of obstructive sleep apnea / IMO 96908552 / Confirmed HLD - Hyperlipidemia / SNOMED CT 296596716 / Confirmed HTN - Hypertension / SNOMED CT 0741946086 / Confirmed Canceled: Atrial fibrillation / SNOMED CT 56103691, Active Problems (25) AIHA (autoimmune hemolytic anemia) [...] 26.5 \ Radiology Results (Last 48 hours) [id number] -- 08/11/2021 21:21 CR Chest 1 Vw [...] Hold home meds SSI Depression Celexa Pain [place] 10 mg every 6 hours as needed CODE STATUS. Full code Dispo: H/H stable, will transfuse one unit prbcs to reach goal hgb f/u trop need therapeutic inr for discharge, pharm managing Time spent 26 minutes Electronically signed by Lanny [facility] Conversion Director Of Event Sales Cerner at 03/09/2023 8:51 PM CDT documented in this encounter Plan of Treatment Not on file documented as of this encounter Visit Diagnoses Not on filedocumented in this encounter Care Teams Vocational Rehabilitation Supervisor Relationship Specialty Start Date End Date Reji Castro MD [address] [place] [address] PCP - General Adolescent Medicine 10/02/22 documented as of this encounter
--- OUTSIDE RECORDS SUMMARY | 2025-05-07 13:05 | XMS_ITS | Encounter Summary ---
Author Organization [employer] Address [address] [place] [address] Care Team Providers Care Writing Center Director Name Role Phone Reji Castro MD Primary Care Provider [phone] Encounter Details Date Type Department Care Team (Late st Contact Info) Description 08/19/2021 Transcribed Document [facility] [place] [facility] [place] [address] ProviderDelvin MD [facility] [place] [address] Social History Tobacco Use Types Packs/Day Years [...] Warfarin HPI: 56 y/o F presenting to [facility] with history of COPD, atrial fibrillation, [...] cefTRIAXone: 2 Gram, 100 mL/Hr, IV Piggyback, Q35GYhx. citalopram: 40 mg, Oral, Daily. diphenhydrAMINE: 50 [...] questions. Thank you, Andrea Moraes, PharmD PGY1 Picture Copyist Pager: [phone] documented in this encounter Plan of Treatment Not on file documented as of this encounter Visit Diagnoses Not on filedocumented in this encounter Care Teams Writing Center Director Relationship Specialty Start Date End Date Reji Castro MD [address] [place] [address] PCP - General Adolescent Medicine 10/02/22 documented as of this encounter
--- OUTSIDE RECORDS SUMMARY | 2025-05-07 13:05 | XMS_ITS | Encounter Summary ---
Author Organization [employer] Address [address] [place] [address] Care Team Providers Care Security Program Manager Name Role Phone Reji Castro MD Primary Care Provider [phone] Encounter Details Date Type Department Care Team (Late st Contact Info) Description 08/12/2021 Transcribed Document [facility] [facility] [place] [address] [place] [address] ProviderDelvin MD [address] [place] [address] Social History Tobacco Use Types Packs/Day Years [...] Health Plan: [employer] P[employer] Policy Number: [id number] Authorization Number: Insurance 2 Health Plan: [place] Policy Number: [id number] Authorization Number: Insurance Primary Name : [employer] PPO Policy Number: [id number] Authorization Status-Primary : Awaiting callback Reference Number-Primary : Pend ref #[id number] Authorized Service Begin Date-Primary : 08/11/2021 EDT Authorization Comments-Primary : Pend ref no per Availity, reviewer has access to Cerner Historical Authorization Comments-Primary : No Authorization Comments Found JORGE VALLES, RN - 08/12/2021 14:07 EDT documented in this encounter Plan of Treatment Not on file documented as of this encounter Visit Diagnoses Not on filedocumented in this encounter Care Teams Security Program Manager Relationship Specialty Start Date End Date Reji Castro MD [address] [place] [address] PCP - General Adolescent Medicine 10/02/22 documented as of this encounter
--- OUTSIDE RECORDS SUMMARY | 2025-05-07 13:05 | XMS_ITS | Encounter Summary ---
Author Organization [employer] Address [address] [place] [address] Care Team Providers Care Back Shoe Cutter Name Role Phone Reji Castro MD Primary Care Provider [phone] Encounter Details Date Type Department Care Team (Late st Contact Info) Description 08/20/2021 Transcribed Document [facility] [place] Family Medicine [address] [place] [address] ProviderDelvin MD [address] [place] [address] Social History Tobacco Use Types Packs/Day Years [...] on filedocumented in this encounter Care Teams Back Shoe Cutter Relationship Specialty Start Date End Date Reji Castro MD [address] [place] [address] PCP - General Adolescent Medicine 10/02/22 documented as of this encounter
--- OUTSIDE RECORDS SUMMARY | 2025-05-07 13:05 | XMS_ITS | Encounter Summary ---
Author Organization [employer] Address [address] [place] [address] Care Team Providers Care Wall Insulation Sprayer Name Role Phone Reji Castro MD Primary Care Provider [phone] Encounter Details Date Type Department Care Team (Late st Contact Info) Description 08/17/2021 Transcribed Document [facility] [place] [address] [place] [address] ProviderDelvin MD [facility] [place], [place] [address] Social History Tobacco Use Types Packs/Day Years Used Date Smoking Tobacco: Never Assessed Comments Unknown Sex and Gender Information Value Date Recorded Sex Assigned at Not on file Legal Sex Female 4:32 PM CDT Gender Identity Not on file Sexual Orientation Not on file documented as of this encounter Miscellaneous Notes * Cerner Conversion Note - Delvin ProviderMD - 08/17/2021 2:00 AM CDT Anode Rebuilder Details Entered On: 08/17/2021 1:07 EDT Performed [...] filedocumented in this encounter Care Teams Wall Insulation Sprayer Relationship Specialty Start Date End Date Reji Castro MD [address] [place] [id number] PCP - General Adolescent Medicine 10/02/22 documented as of this encounter
--- OUTSIDE RECORDS SUMMARY | 2025-05-07 13:05 | XMS_ITS | Encounter Summary ---
Author Organization [employer] Address [address] [place] [address] Care Team Providers Care Light Out Examiner Name Role Phone Reji Castro MD Primary Care Provider [phone] Encounter Details Date Type Department Care Team (Late st Contact Info) Description 08/14/2021 Transcribed Document [facility] [place] [facility] [place] [address] ProviderDelvin [place] [facility] [place] [address] Social History Tobacco Use Types Packs/Day Years [...] Warfarin HPI: 56 y/o F presenting to [facility] with history of COPD, atrial fibrillation, CKD [...] mg, 14 mL, 128 mL/Hr, IV Piggyback, [id number]. docusate-senna: 1 Tab, Oral, BID. famotidine: 20 [...] Encounter/Past 24 Hours) Creatinine Level 1.80 mg/dL [place] 08/14/2021 07:29 Bun/Creatinine 19.4 08/14/2021 00:14 Estimated [...] questions. Thank you, Andrea Moraes, PharmD PGY1 Daytime Caregiver Pager: [phone], Ext. [phone] Electronically signed by Lanny [facility] Conversion Assistant Professor Of Chemistry Cerner at 03/09/2023 8:49 PM CDT documented in this encounter Plan of Treatment Not on file documented as of this encounter Visit Diagnoses Not on filedocumented in this encounter Care Teams Light Out Examiner Relationship Specialty Start Date End Date Reji Castro MD [address] [place] [address] PCP - General Adolescent Medicine 10/02/22 documented as of this encounter
--- OUTSIDE RECORDS SUMMARY | 2025-05-07 13:05 | XMS_ITS | Encounter Summary ---
Author Organization [employer] Address [address] [facility] [place] [address] Care Team Providers Care Kier Boiler Name Role Phone Reji Castro MD Primary Care Provider [phone] Encounter Details Date Type Department Care Team (Late st Contact Info) Description 08/25/2021 Transcribed Document [facility] [place] Family Medicine [address] [place] [address] ProviderDelvin MD [address] [place] [address] Social History Tobacco Use Types Packs/Day Years [...] Spiritual : 2 Referral Reason Comment : EPIC MANAGER in Room 454. Ministry Provided to : Patient Spiritual/Emotional Acuity : Medium Spiritual Framework : Integrated, provides strength/resource Active in a [facility] : Yes Active in a [facility] Comment : [facility] Voodoo Preference : Jew Spiritual Leader Requested : No Anabaptism Sacrament of the Sick/Anointing Needed : No Clinical Pharmacy Technician Follow-up Needed : No Rome Burgos Chaplain-Non Cert - 08/25/2021 10:13 EDT Spiritual Assessment Patient's Community/Relationship : Strength in patient's life Supportive/Healthy Relationships : Yes Supportive Voodoo Community : Yes Patient's Sense of Meaning [...] : Yes Spiritual Assessment Comment/Summary Points : EPIC MANAGER. PT is experiencing significant chest pain. She was desirous of prayer, explaining her involvement with her Jew orthodoxy as well. One of her daugthers is a Orthopedic Surgery Nurse here at [facility]. She reported she is living in a rented house in [place] as her home in [facility] [place] has up health system. Clinical Pharmacy Technician provided pastoral presence, support, and prayer. Family; two daughters, two sisters, one brother, and their families. Spirital Assessment Comment/Summary Report : SPIRITUAL ASSESSMENT COMMENT/SUMMARY No qualifying data available. Rome Burgos Chaplain-Non Cert - 08/25/2021 10:13 EDT Interventions Advance Directive Information Provided : No Emotional Support : Empathic/Engaged listening, Established trust, Feelings expressed, Hope strengths identified, Meaning strengths identified, Relationship strengths identified Spiritual and Voodoo : Prayer shared Rome Burgos Chaplain-Non Cert - 08/25/2021 10:13 EDT Electronically signed by [facility] Conversion Vrt Mechanic Cerner at 03/09/2023 8:33 PM CDT documented in this encounter Plan of Treatment Not on file documented as of this encounter Visit Diagnoses Not on filedocumented in this encounter Care Teams Kier Boiler Relationship Specialty Start Date End Date Reji Castro MD [address] [place] [address] PCP - General Adolescent Medicine 10/02/22 documented as of this encounter
--- OUTSIDE RECORDS SUMMARY | 2025-05-07 13:05 | XMS_ITS | Encounter Summary ---
Author Organization [employer] Address [address] [place] [address] Care Team Providers Care Project Development Coordinator Name Role Phone Reji Castro MD Primary Care Provider [phone] Encounter Details Date Type Department Care Team (Late st Contact Info) Description 08/20/2021 Transcribed Document [facility] [place] Family Medicine [facility] [place] [address] ProviderDelvin MD [facility] [place] [address] Social History Tobacco Use Types Packs/Day Years Used Date Smoking Tobacco: Never Assessed Comments Unknown Sex and Gender Information Value Date Recorded Sex Assigned at Not on file Legal Sex Female 4:32 PM CDT Gender Identity Not on file Sexual Orientation Not on file documented as of this encounter Miscellaneous Notes * Cerner Conversion Note - Delvin ProviderMD - 08/20/2021 2:00 AM CDT Bathing Suit Maker Details Entered On: 08/20/2021 3:08 EDT Performed [...] filedocumented in this encounter Care Teams Project Development Coordinator Relationship Specialty Start Date End Date Reji Castro MD [address] [place] [address] PCP - General Adolescent Medicine 10/02/22 documented as of this encounter
--- OUTSIDE RECORDS SUMMARY | 2025-05-07 13:05 | XMS_ITS | Encounter Summary ---
Author Organization [employer] Address [address] [place] [address] Care Team Providers Care Conservation Science Teacher Name Role Phone Reji Castro MD Primary Care Provider [phone] Encounter Details Date Type Department Care Team (Late st Contact Info) Description 08/12/2021 Transcribed Document [facility] [place] Family Medicine [address] [place], [place] [address] ProviderDelvin MD [address] [place] [address] Social History Tobacco Use Types Packs/Day Years [...] On: 08/12/2021 8:46 EDT by TAWNYA AVILES, POULTRY FARM MANAGER Bronchodilator Assessment Score, RT Pulmonary History, Bronchodilator [...] on filedocumented in this encounter Care Teams Conservation Science Teacher Relationship Specialty Start Date End Date Reji Castro MD [address] [place] [address] PCP - General Adolescent Medicine 10/02/22 documented as of this encounter
--- OUTSIDE RECORDS SUMMARY | 2025-05-07 13:05 | XMS_ITS | Encounter Summary ---
Author Organization [employer] Address [address] [place] [address] Care Team Providers Care Ladle Operator Name Role Phone Reji Castro MD Primary Care Provider [phone] Encounter Details Date Type Department Care Team (Late st Contact Info) Description 08/20/2021 Transcribed Document [facility] [place] [facility] [place] [address] ProviderDelvin MD [facility] [place] [address] Social History Tobacco Use Types Packs/Day Years [...] cefTRIAXone: 2 Gram, 100 mL/Hr, IV Piggyback, [id number]. citalopram: 40 mg, Oral, Daily. diphenhydrAMINE: 50 [...] questions. Thank you, Andrea Moraes, PharmD PGY1 Parking Enforcement Officer Pager: [phone], Ext. [phone] Electronically signed by Lanny, [facility] Conversion Environmental Compliance Specialist Cerner at 03/09/2023 8:58 PM CDT documented in this encounter Plan of Treatment Not on file documented as of this encounter Visit Diagnoses Not on filedocumented in this encounter Care Teams Ladle Operator Relationship Specialty Start Date End Date Reji Castro MD [address] [place] [address] PCP - General Adolescent Medicine 10/02/22 documented as of this encounter
--- OUTSIDE RECORDS SUMMARY | 2025-05-07 13:05 | XMS_ITS | Encounter Summary ---
Author Organization [employer] Address [address] [place] [address] Care Team Providers Care Commercial Lines Sales Executive Name Role Phone Reji Castro MD Primary Care Provider [phone] Encounter Details Date Type Department Care Team (Late st Contact Info) Description 08/19/2021 Transcribed Document [facility] Radiology [address] [place] [address] Loren Solorzano MD [address] [place] [address] [address] [place] [id number] Social History Tobacco Use Types Packs/Day Years [...] Bioprosthetic mitral valve replacement / SNOMED CT 534386088 / Confirmed Chronic kidney disease / SNOMED CT 5508677194 / Confirmed COPD - Chronic obstructive pulmonary disease / SNOMED CT 729355710 / Confirmed History of obstructive sleep apnea / IMO 87216470 / Confirmed HLD - Hyperlipidemia / SNOMED CT 575893091 / Confirmed HTN - Hypertension / SNOMED CT 6943487265 / Confirmed Canceled: Atrial fibrillation / SNOMED CT 27616465, Active Problems (25) AIHA (autoimmune hemolytic anemia) [...] Maximum Temp 99.1 (AUG 19 06:30) 98 ([facility] 00:00) 99.1 ([facility] 06:30) Apical HR 87 ([facility] 20:53) 87 ([facility] 20:53) 87 ([facility] 20:53) Mon HR 81 (AUG 19 06:30) 72 ([facility] 21:00) 87 ([facility] 15:27) Resp Rate 18 ([facility] 06:30) 16 ([facility] 00:00) 20 ([facility] 18:17) SBP 117 ([facility] 06:30) 94 ([facility] 21:00) 120 ([facility] 18:17) DBP 67 ([facility] 06:30) L 55 ([facility] 21:00) 67 ([facility] 06:30) MAP 85 ([facility] 06:30) 67 ([facility] 21:00) 87 ([facility] 18:17) SpO2 98 (AUG 19 06:30) L [...] data available Radiology Results (Last 48 hours) [id number] -- 08/11/2021 21:21 CR Chest 1 Vw [...] Hold home meds SSI #Depression Celexa #Pain [place] 10 mg every 6 hours as needed [...] on filedocumented in this encounter Care Teams Commercial Lines Sales Executive Relationship Specialty Start Date End Date Reji Csatro MD [address] [place] [address] PCP - General Adolescent Medicine 10/02/22 documented as of this encounter
--- OUTSIDE RECORDS SUMMARY | 2025-05-07 13:05 | XMS_ITS | Encounter Summary ---
Author Organization [employer] Address [address] [place] [address] Care Team Providers Care Director Advertising Name Role Phone Reji Castro MD Primary Care Provider [phone] Encounter Details Date Type Department Care Team (Late st Contact Info) Description 08/16/2021 Transcribed Document [facility] [place] [address] [place] [address] ProviderDelvin MD [facility] [place], [place] [address] Social History Tobacco Use Types Packs/Day Years Used Date Smoking Tobacco: Never Assessed Comments Unknown Sex and Gender Information Value Date Recorded Sex Assigned at Not on file Legal Sex Female 4:32 PM CDT Gender Identity Not on file Sexual Orientation Not on file documented as of this encounter Miscellaneous Notes * Cerner Conversion Note - Delvin ProviderMD - 08/16/2021 2:00 AM CDT Racing Mechanic Details Entered On: 08/16/2021 2:41 EDT Performed [...] filedocumented in this encounter Care Teams Director Advertising Relationship Specialty Start Date End Date Reji Castro MD [address] [place] [address] PCP - General Adolescent Medicine 10/02/22 documented as of this encounter
--- OUTSIDE RECORDS SUMMARY | 2025-05-07 13:05 | XMS_ITS | Encounter Summary ---
Author Organization [employer] Address [address] [place] [address] Care Team Providers Care Pattern Grader Cutter Name Role Phone Reji Castro MD Primary Care Provider [phone] Encounter Details Date Type Department Care Team (Late st Contact Info) Description 08/11/2021 Transcribed Document [facility] [place] [address] [place] [address] ProviderDelvin MD [address] [place] [address] Social History Tobacco Use Types Packs/Day Years [...] Celina Wilder RN - 08/12/2021 9:33 EDT Electronically signed by Lanny [facility] Conversion Director Of Billing Cerner at 03/09/2023 8:39 PM CDT documented in this encounter Plan of Treatment Not on file documented as of this encounter Visit Diagnoses Not on filedocumented in this encounter Care Teams Pattern Grader Cutter Relationship Specialty Start Date End Date Rjei Castro MD [address] [place] [address] PCP - General Adolescent Medicine 10/02/22 documented as of this encounter
--- OUTSIDE RECORDS SUMMARY | 2025-05-07 13:05 | XMS_ITS | Encounter Summary ---
Author Organization [employer] Address [address] [place] [address] Care Team Providers Care Drop Wire Aligner Name Role Phone Reji Castro MD Primary Care Provider [phone] Encounter Details Date Type Department Care Team (Late st Contact Info) Description 08/11/2021 Transcribed Document [facility] [place] [address] [place] [address] ProviderDelvin MD [address] [place] [address] Social History Tobacco Use Types Packs/Day Years [...] on filedocumented in this encounter Care Teams Drop Wire Aligner Relationship Specialty Start Date End Date Reji Castro MD [address] [place] [address] PCP - General Adolescent Medicine 10/02/22 documented as of this encounter
--- OUTSIDE RECORDS SUMMARY | 2025-05-07 13:05 | XMS_ITS | Encounter Summary ---
Author Organization [employer] Address [address] [place] [address] Care Team Providers Care Equip Maint Eng Name Role Phone Reji Castro MD Primary Care Provider [phone] Encounter Details Date Type Department Care Team (Late st Contact Info) Description 08/26/2021 Transcribed Document [facility] [place] [address] [place] [address] ProviderDelvin MD [address] [place] [address] Social History Tobacco Use Types Packs/Day Years [...] cefTRIAXone: 2 Gram, 100 mL/Hr, IV Piggyback, [id number] diphenhydrAMINE: 25 mg, Oral, Q6H, PRN: Itching [...] Oral, BID cefTRIAXone 2 Gram, IV Piggyback, [id number] citalopram 20 mg tab 40 mg 2 [...] Bioprosthetic mitral valve replacement / SNOMED CT 031533283 / Confirmed Chronic kidney disease / SNOMED CT 9038958253 / Confirmed COPD - Chronic obstructive pulmonary disease / SNOMED CT 551165429 / Confirmed History of obstructive sleep apnea / IMO 98281496 / Confirmed HLD - Hyperlipidemia / SNOMED CT 424955955 / Confirmed HTN - Hypertension / SNOMED CT 1631672230 / Confirmed Canceled: Atrial fibrillation / SNOMED CT 70026573, Active Problems (25) AIHA (autoimmune hemolytic anemia) [...] Impression and Plan Dx and Plan 1. TIRSTAN on kidney disease stage III. TRISTAN in [...] Monitor GFR adjust medications. Electronically signed by [facility], [facility] Conversion Radio Frequency Design Engineer Cerner at 03/09/2023 8:56 PM CDT documented in this encounter Plan of Treatment Not on file documented as of this encounter Visit Diagnoses Not on filedocumented in this encounter Care Teams Equip Maint Eng Relationship Specialty Start Date End Date Reji Castro MD [address] [place] [address] PCP - General Adolescent Medicine 10/02/22 documented as of this encounter
--- OUTSIDE RECORDS SUMMARY | 2025-05-07 13:05 | XMS_ITS | Encounter Summary ---
Author Organization [employer] Address [address] [place] [address] Care Team Providers Care Hasher Machine Operator Name Role Phone Reji Castro MD Primary Care Provider [phone] Encounter Details Date Type Department Care Team (Late st Contact Info) Description 08/12/2021 Transcribed Document [facility] [place] [address] [place] [address] ProviderDelvin MD [address] [place] [address] Social History Tobacco Use Types Packs/Day Years [...] on filedocumented in this encounter Care Teams Hasher Machine Operator Relationship Specialty Start Date End Date Reji Castro MD [address] [place] [address] PCP - General Adolescent Medicine 10/02/22 documented as of this encounter
--- OUTSIDE RECORDS SUMMARY | 2025-05-07 13:05 | XMS_ITS | Encounter Summary ---
Author Organization [employer] Address [address] [place] [address] Care Team Providers Care Web Software Engineer Name Role Phone Reji Castro MD Primary Care Provider [phone] Encounter Details Date Type Department Care Team (Late st Contact Info) Description 08/20/2021 Transcribed Document [facility] [place] Family Medicine [address] [place] [address] ProviderDelvin MD [address] [place] [address] Social History Tobacco Use Types Packs/Day Years [...] 08/20/2021 16:48 EDT Electronically signed by Lanny [facility] Conversion Clinical Data Coordinator Cerner at 03/09/2023 8:32 PM CDT documented in this encounter Plan of Treatment Not on file documented as of this encounter Visit Diagnoses Not on filedocumented in this encounter Care Teams Web Software Engineer Relationship Specialty Start Date End Date Reji Castro MD [address] [place] [address] PCP - General Adolescent Medicine 10/02/22 documented as of this encounter
--- OUTSIDE RECORDS SUMMARY | 2025-05-07 13:05 | XMS_ITS | Encounter Summary ---
Author Organization [employer] Address [address] [place] [address] Care Team Providers Care Professor Of Surgery Name Role Phone Reji Castro MD Primary Care Provider [phone] Encounter Details Date Type Department Care Team (Late st Contact Info) Description 08/25/2021 Transcribed Document [facility] [place] [address] [place] [address] ProviderDelvin MD [address] [place] [address] Social History Tobacco Use Types Packs/Day Years [...] Event : Transfer to telemetry Rapid Response Professor Of Surgery #1 : ROBERTO KOHLI RN Rapid Response Professor Of Surgery #2 : ROBERTO CAMARA, CALL SPECIALIST ROBERTO KOHLI RN - 08/25/2021 9:33 EDT [...] Chronic kidney disease, unspecified Heart failure, unspecified long term (current) use of anticoagulants Medical screening exam [...] Mass Index: 32.7 kg/m2 High (08/11/21 16:19:00) ROBRETO KOHLI RN - 08/25/2021 9:20 EDT documented in this encounter Plan of Treatment Not on file documented as of this encounter Visit Diagnoses Not on filedocumented in this encounter Care Teams Professor Of Surgery Relationship Specialty Start Date End Date Reji Castro MD [address] [place] [address] PCP - General Adolescent Medicine 10/02/22 documented as of this encounter
--- OUTSIDE RECORDS SUMMARY | 2025-05-07 13:05 | XMS_ITS | Encounter Summary ---
Author Organization [employer] Address [address] [place] [address] Care Team Providers Care Econometrics Professor Name Role Phone Reji Castro MD Primary Care Provider [phone] Encounter Details Date Type Department Care Team (Late st Contact Info) Description 08/17/2021 Transcribed Document [facility] Radiology [address] [place] [address] Loren Solorzano MD [address] [place] [address] [place] [id number] Social History Tobacco Use Types Packs/Day Years [...] mg, 14 mL, 128 mL/Hr, IV Piggyback, [id number] Dextrose 50% injection: 12.5 Gram, IV Push, [...] mL 700 mg 14 mL, IV Piggyback, [id number] famotidine 20 mg tab 20 mg 1 [...] Bioprosthetic mitral valve replacement / SNOMED CT 684533378 / Confirmed Chronic kidney disease / SNOMED CT 3614972267 / Confirmed COPD - Chronic obstructive pulmonary disease / SNOMED CT 674352026 / Confirmed History of obstructive sleep apnea / IMO 94681986 / Confirmed HLD - Hyperlipidemia / SNOMED CT 947215332 / Confirmed HTN - Hypertension / SNOMED CT 2922561946 / Confirmed Canceled: Atrial fibrillation / SNOMED CT 48877130, Active Problems (25) AIHA (autoimmune hemolytic anemia) [...] Hold home meds SSI #Depression Celexa #Pain [place] 10 mg every 6 hours as needed [...] on filedocumented in this encounter Care Teams Econometrics Professor Relationship Specialty Start Date End Date Reji Castro MD [address] [place] [address] PCP - General Adolescent Medicine 10/02/22 documented as of this encounter
--- OUTSIDE RECORDS SUMMARY | 2025-05-07 13:05 | XMS_ITS | Encounter Summary ---
Author Organization [employer] Address [address] [place] [address] Care Team Providers Care Pipe Fitter Maintenance Name Role Phone Reji Castro MD Primary Care Provider [phone] Encounter Details Date Type Department Care Team (Late st Contact Info) Description 08/12/2021 Transcribed Document [facility] [place] [facility] [place] [address] ProviderDelvin MD [address] [place] [address] Social History Tobacco Use Types Packs/Day Years [...] in AM. Chart reviewed. Discussed with RN Electronically signed by Loki Ca Conversion Automated Access Systems Technician Cerner at 03/09/2023 8:50 PM CDT documented in this encounter Plan of Treatment Not on file documented as of this encounter Visit Diagnoses Not on filedocumented in this encounter Care Teams Pipe Fitter Maintenance Relationship Specialty Start Date End Date Reji Castro MD [address] [place] [address] PCP - General Adolescent Medicine 10/02/22 documented as of this encounter
--- OUTSIDE RECORDS SUMMARY | 2025-05-07 13:05 | XMS_ITS | Encounter Summary ---
Author Organization [employer] Address [address] [place] [address] Care Team Providers Care Lumber Stacker Driver Name Role Phone Reji Castro MD Primary Care Provider [phone] Encounter Details Date Type Department Care Team (Late st Contact Info) Description 08/14/2021 Transcribed Document [facility] [place] Family Medicine [address] [place] [address] ProviderDelvin MD [address] [place] [address] Social History Tobacco Use Types Packs/Day Years [...] on filedocumented in this encounter Care Teams Lumber Stacker Driver Relationship Specialty Start Date End Date Reji Castro MD [address] [place] [address] PCP - General Adolescent Medicine 10/02/22 documented as of this encounter
--- OUTSIDE RECORDS SUMMARY | 2025-05-07 13:05 | XMS_ITS | Encounter Summary ---
Author Organization [employer] Address [address] [place] [address] Care Team Providers Care Tube Maker Name Role Phone Reji Castro MD Primary Care Provider [phone] Encounter Details Date Type Department Care Team (Late st Contact Info) Description 08/14/2021 Transcribed Document [facility] [place] [address] [place] [address] ProviderDelvin MD [address] [place] [address] Social History Tobacco Use Types Packs/Day Years [...] Author: CHELI BEASLEY MD-CAR Basic Information Primary Investigative Agent: Dr. Delmar Geronimo Elevator Dispatcher: MD Nestor Subjective NAD Health Status Current [...] mL 700 mg 14 mL, IV Piggyback, [id number] famotidine 20 mg tab 20 mg 1 [...] of motion, Normal strength. Integumentary: Warm, Dry, Naylor. Neurologic: Alert, Oriented. Psychiatric: Cooperative, Appropriate mood & affect. Results Review AUG 13 23:47 L 135 102 H 35 / H 114 4.2 29 H 1.80 \ SEP 22 23:47 \ L 8.1 / 5.5 206 / L 26.9 \ Cardiac Markers (Current Encounter/Past 24 Hours) CK 87 Units/Liter 08/13/2021 05:53 ProBNP 647 pg/mL CA 08/14/2021 00:14 Radiology Results (Last 48 hours) [id number] -- 08/11/2021 21:21 CR Abdomen 1 Vw [...] mechan MV, 4+ TR, no vegetation. Admitted [facility] 07/12, Negative CHUCHO, TTE for [...] appropriate per primary hosp service & primary rubber compounder mixer. Will sign-off, call if questions. RV w/ Dr. Sawyer 1 wk post DC. 08/13/21 Resume Toprol XL 25 mg QHS. Reinitiation of other HF meds as appropriate. 08/12/21 CHUCHO to assess for endocarditis & mechanical causes of hemolysis. Obtain records from [facility]. Check haptoglobin, LDH, reticulocyte count. Continue other current CV meds. Electronically signed by Lanny [facility] Conversion Wood Cut Engraver Cerner at 03/09/2023 8:53 PM CDT documented in this encounter Plan of Treatment Not on file documented as of this encounter Visit Diagnoses Not on filedocumented in this encounter Care Teams Tube Maker Relationship Specialty Start Date End Date Reji Castro MD [address] [place] [address] PCP - General Adolescent Medicine 10/02/22 documented as of this encounter
--- OUTSIDE RECORDS SUMMARY | 2025-05-07 13:05 | XMS_ITS | Encounter Summary ---
Author Organization [employer] Address [address] [place] [address] Care Team Providers Care Machine Former Name Role Phone Reji Castro MD Primary Care Provider [phone] Encounter Details Date Type Department Care Team (Late st Contact Info) Description 08/19/2021 Transcribed Document [facility] [place] [facility] [place] [address] ProviderDelvin MD [facility] [place] [address] Social History Tobacco Use Types Packs/Day Years Used Date Smoking Tobacco: Never Assessed Comments Unknown Sex and Gender Information Value Date Recorded Sex Assigned at Not on file Legal Sex Female 4:32 PM CDT Gender Identity Not on file Sexual Orientation Not on file documented as of this encounter Miscellaneous Notes * Cerner Conversion Note - Delvin ProviderMD - 08/19/2021 2:00 AM CDT Repairer Sash And Door Details Entered On: 08/19/2021 3:57 EDT Performed [...] on filedocumented in this encounter Care Teams Machine Former Relationship Specialty Start Date End Date Reji Castro MD [address] [place] [address] PCP - General Adolescent Medicine 10/02/22 documented as of this encounter
--- OUTSIDE RECORDS SUMMARY | 2025-05-07 13:05 | XMS_ITS | Encounter Summary ---
Author Organization [employer] Address [address] [place] [address] Care Team Providers Care Upkeep Worker Name Role Phone Reji Castro MD Primary Care Provider [phone] Encounter Details Date Type Department Care Team (Late st Contact Info) Description 08/20/2021 Transcribed Document [facility] Radiology [address] [place] [address] Loren Solorzano MD [address] [place] [address] [address] [place] [id number] Social History Tobacco Use Types Packs/Day Years [...] cefTRIAXone: 2 Gram, 100 mL/Hr, IV Piggyback, [id number] diphenhydrAMINE: 25 mg, Oral, Q6H, PRN: Itching [...] Oral, BID cefTRIAXone 2 Gram, IV Piggyback, [id number] citalopram 20 mg tab 40 mg 2 [...] Bioprosthetic mitral valve replacement / SNOMED CT 503447751 / Confirmed Chronic kidney disease / SNOMED CT 4374647361 / Confirmed COPD - Chronic obstructive pulmonary disease / SNOMED CT 661899177 / Confirmed History of obstructive sleep apnea / IMO 95899707 / Confirmed HLD - Hyperlipidemia / SNOMED CT 680393688 / Confirmed HTN - Hypertension / SNOMED CT 4001173085 / Confirmed Canceled: Atrial fibrillation / SNOMED CT 61861368, Active Problems (25) AIHA (autoimmune hemolytic anemia) [...] 25.9 \ Radiology Results (Last 48 hours) [id number] -- 08/11/2021 21:21 CR Fluoro in OR (08/19/2021 08:15) Result: FLUOROSCOPY IN THE ORHISTORY: Staph infection.FINDINGS: Fluoroscopy was provided by the radiology department [id number] placement. 1 spot film was submittedFLUOROSCOPY TIME: [...] Medications: cefTRIAXone 2 Gram, IV Piggyback, Inj, Z05DDqa, infuse over 30 Minute(s), Routine, Start 08/20/21 [...] Hold home meds SSI #Depression Celexa #Pain Revere 10 mg every 6 hours as needed Dispo: Given patient with history of multiple transfusion we will keep patient in the hospital on heparin drip and Coumadin till INR therapeutic need IV abx, at least until 09/08. Discussed with bilingual patient support caseworker. Time spent 25 minutes documented in this encounter Plan of Treatment Not on file documented as of this encounter Visit Diagnoses Not on filedocumented in this encounter Care Teams Upkeep Worker Relationship Specialty Start Date End Date Reji Castro MD [address] [place] [address] PCP - General Adolescent Medicine 10/02/22 documented as of this encounter
--- OUTSIDE RECORDS SUMMARY | 2025-05-07 13:05 | XMS_ITS | Encounter Summary ---
Author Organization [employer] Address [address] [place] [address] Care Team Providers Care Truck Driving Name Role Phone Reji Castro MD Primary Care Provider [phone] Encounter Details Date Type Department Care Team (Late st Contact Info) Description 08/12/2021 Transcribed Document [facility] [place] [facility] [place] [address] ProviderDelvin MD [facility] [place] [address] Social History Tobacco Use Types Packs/Day Years Used Date Smoking Tobacco: Never Assessed Comments Unknown Sex and Gender Information Value Date Recorded Sex Assigned at Not on file Legal Sex Female 4:32 PM CDT Gender Identity Not on file Sexual Orientation Not on file documented as of this encounter Miscellaneous Notes * Cerner Conversion Note - Delvin ProviderMD - 08/12/2021 2:00 AM CDT Supervisor Extrusion Details Entered On: 08/12/2021 0:22 EDT Performed [...] on filedocumented in this encounter Care Teams Truck Driving Relationship Specialty Start Date End Date Reji Castro MD [address] [place] [address] PCP - General Adolescent Medicine 10/02/22 documented as of this encounter
--- OUTSIDE RECORDS SUMMARY | 2025-05-07 13:05 | XMS_ITS | Encounter Summary ---
Author Organization [employer] Address [address] [place] [address] Care Team Providers Care Restaurant Busser Name Role Phone Reji Castro MD Primary Care Provider [phone] Encounter Details Date Type Department Care Team (Late st Contact Info) Description 08/19/2021 Transcribed Document [facility] [place] [facility] [place] [address] ProviderDelvin MD [address] [place] [address] Social History Tobacco Use Types Packs/Day Years [...] 15:34 EDT by MADINA LOVETT, JEREMIAH - House PainterStraw Hat Washer Operator Progress Note Discharge Arrangements : Patient [...] Rounds? : Yes MADINA LOVETT RN - House Painter - 08/19/2021 15:34 EDT Narrative Progress Note [...] will need home health and lvies in [place]. [facility] is a possibility. Historical [...] will need home health and lives in [place]. [facility] is a possibility. CM will continue to follow. DCP: MADINA LOVETT RN - House Painter - 08/18/21 15:47:49 (late entry from 08/15-) [...] and send referrals as appropriate. JULIO STEWART RN-House Painter ED - 08/18/21 10:38:39 BONY, MADINA, RN - House Painter - 08/19/2021 15:34 EDT Electronically signed by Lanny [facility] Conversion Claim Attorney Cerner at 03/09/2023 8:49 PM CDT documented in this encounter Plan of Treatment Not on file documented as of this encounter Visit Diagnoses Not on filedocumented in this encounter Care Teams Restaurant Busser Relationship Specialty Start Date End Date Reji Castro MD [address] [place] [address] PCP - General Adolescent Medicine 10/02/22 documented as of this encounter
--- OUTSIDE RECORDS SUMMARY | 2025-05-07 13:05 | XMS_ITS | Encounter Summary ---
Author Organization [employer] Address [address] [place] [address] Care Team Providers Care Hotel Baggage Handler Name Role Phone Reji Castro MD Primary Care Provider [phone] Encounter Details Date Type Department Care Team (Late st Contact Info) Description 08/19/2021 Transcribed Document [facility] [place] [address] [place] [address] ProviderDelvin MD [address] [place] [address] Social History Tobacco Use Types Packs/Day Years [...] Celestin MD - 08/19/2021 7:51 AM CDT [facility] Main OR IntraOp Summary Primary Physician: NENA PEARSON MD-SUR Finalized Date/Time: 08/20/21 09:11:26 Pt. Name: TAMAYO IRINAGE Solis/Sex: 1965 Female Med Rec #: [id number] Physician: VINCE BELLO MD Financial #: [id number] Pt. Type: I Room/Bed: [facility]/ Admit/Disch: 08/11/21 21:21:00 - Institution: [facility] IntraOp Case Attendance Entry 1 Entry 2 Entry 3 Case Attendee NENA PEARSON MD-ERNESTO FISCHER APRN, BURBERRY, KEITH, MD-ANS COMMODITY LEAD Role Performed Surgeon/Proceduralist, COMMODITY LEAD/Nurse Bank Teller Machine Mechanic Anesthesiologist of First Record Time In 08/19/21 [...] YULIA JIM, SCRUB Josh Rivera, ALICIA SOTELO, PHP WEB DEVELOPER/CSA TECH Role Performed Marketing Assistant Retail Division, First Kiln Burner Helper, First Scrub, First Time In 08/19/21 07:29:00 08/19/21 07:29:00 08/19/21 07:29:00 Time Out 08/19/21 08:24:00 08/19/21 08:24:00 08/19/21 08:24:00 Procedure Vascular Access Vascular Access Vascular Access Insertion Insertion Insertion Other Attendee Superficial Wound Closed By: Last Modified By: Josh Rivera, Josh Perez, Josh Perez, JEREMIAH 08/19/21 08:35:46 08/19/21 08:35:46 08/19/21 08:35:46 Entry 7 Case Attendee David Greene, Thermal Cutting Machine Operator Role Performed Inbound Telemarketer Time In 08/19/21 07:55:00 Time Out 08/19/21 08:07:00 Procedure Vascular Access Insertion Other Attendee Superficial Wound Closed By: Last Modified By: Josh Rivera RN 08/19/21 08:35:46 [facility] IntraOp Case Attendance Audit 08/19/21 08:35:46 Rn Hedis: JAZLYN Modifier: JAZLYN 1 <+> Time Out [...] <*> Procedure Vascular Access Insertion 08/19/21 08:07:27 Rn Hedis: JAZLYN Modifier: PANTANOS 1 <*> Procedure Vascular Access Insertion 2 <*> Procedure Vascular Access Insertion 3 <*> Procedure Vascular Access Insertion 4 <*> Procedure Vascular Access Insertion 5 <*> Procedure Vascular Access Insertion 6 <*> Procedure Vascular Access Insertion 7 <+> Time In 7 <+> Time Out 7 <*> Procedure Vascular Access Insertion 08/19/21 08:04:07 Rn Hedis: JAZLYN Modifier: PANTANOS <+> 7 Case Attendee <+> 7 Role Performed <+> 7 Procedure 08/19/21 08:00:27 Rn Hedis: JAZLYN Modifier: PANTANOS 1 <*> Procedure Vascular Access Insertion 2 <*> Procedure Vascular Access Insertion 3 <*> Procedure Vascular Access Insertion 4 <+> Time In 4 <*> Procedure Vascular Access Insertion 5 <+> Time In 5 <*> Procedure Vascular Access Insertion 6 <+> Time In 6 <*> Procedure Vascular Access Insertion 08/19/21 07:52:21 Rn Hedis: JAZLYN Modifier: PANTANOS <+> 1 Procedure 2 <+> Time In 2 <*> Procedure Vascular Access Insertion 3 <+> Time In 3 <*> Procedure Vascular Access Insertion <+> 4 Case Attendee <+> 4 Role Performed <+> 4 Procedure <+> 5 Case Attendee <+> 5 Role Performed <+> 5 Procedure <+> 6 Case Attendee <+> 6 Role Performed <+> 6 Procedure [facility] IntraOp Case Times Entry 1 Patient In Room Time 08/19/21 07:29:00 Out Room Time 08/19/21 08:24:00 Anesthesia Start Time 08/19/21 07:29:00 Stop Time 08/19/21 08:24:00 Surgery / Procedure Times Start Time 08/19/21 07:51:00 Stop Time 08/19/21 08:17:00 Last Modified By: Josh Rivera RN 08/19/21 08:24:22 [facility] IntraOp Case Times Audit 08/19/21 08:24:22 Rn Hedis: JAZLYN Modifier: MAKENNAANOS <+> 1 Out Room Time <+> 1 Stop Time <+> 1 Stop Time 08/19/21 07:51:02 Rn Hedis: JAZLYN Modifier: JUDITHS <+> 1 Start Time [facility] IntraOp Cautery Entry 1 ESU Identification Cautery Type Monopolar ESU ID Number [id number] ID Type Hospital Number Cautery Settings Cut Setting 30 Coag Setting 30 ESU Grounding Pad Ground Pad Type Adult Grounding Pad Site Right Buttock Grounding Pad Josh Rivera RN Applied By Grounding Pad Site Intact Skin Condition Before Cautery Grounding Pad Site Intact Skin Condition After Cautery Last Modified By: Josh Rivera RN 08/19/21 07:52:52 [facility] IntraOp Communication Entry 1 Communication To Family/Significant other Communication By Josh Rivera RN Last Modified By: Josh Rivera RN 08/19/21 07:58:45 [facility] IntraOp Counts Verification Entry 1 Procedure Vascular Access Insertion Count Info Count Type Sponge, Sharps, Miscellaneous Counts Verification Baseline/pre-procedure Sequence Count Results Correct, surgeon notified Counts Performed By Count Performed By ALICIA MACIAS SCRUB (Scrub) TECH Count Performed By Josh Rivera RN (RN) Last Modified By: Josh Rivera RN 08/19/21 07:53:18 [facility] IntraOp Counts Final Entry 1 Procedure Vascular Access Insertion Final Count Info Count Type Sponge, Sharps, Miscellaneous Counts Verification Skin Closure/end of Sequence procedure Count Results Correct, surgeon notified Counts Performed By Count Performed By ALICIA MACIAS SCRUB (Scrub) TECH Count Performed By Josh Rivera RN (RN) Last Modified By: Josh Rivera RN 08/19/21 07:53:41 [facility] IntraOp Departure from OR Entry 1 Integumentary Assessment Integumentary WDL Assessment WDL Transfer/Handoff Transfer to Nursing unit Handoff Method Bedside/Face to face, Online nursing summary Post-op Transport Stretcher/Roderick Via Patient Transport ERNESTO SOUSA APRN, Accompanied by COMMODITY LEAD Last Modified By: Josh Rivera RN 08/19/21 08:02:48 [facility] IntraOp Departure from OR Audit 08/19/21 08:02:48 Rn Hedis: AJZLYN Modifier: JAZLYN 1 <*> Transfer to Ambulatory unit, Phase II 1 <+> Patient Transport Accompanied by [facility] IntraOp Dressing and Packing Entry 1 Type Dressing Location OPSITE Wound Dressing Item Skin Closure Glue Applied By YULIA JIM SCRUB TECH/COTAVIO Last Modified By: Josh Rivera RN 08/19/21 07:54:28 [facility] IntraOp Fire Risk Assessment Entry 1 Fire [...] Modified By: Josh Rivera RN 08/19/21 07:53:55 [facility] IntraOp General Case Motion And Time Study Teacher 1 Case Information OR OR 06 [facility] Case Level 1 Room Verified Yes Wound Class I - Clean Specialty General ASA Class 4 Diagnosis Preop Diagnosis IV Access Postop Same As Preop Yes Postop Diagnosis IV Access Last Modified By: Josh Rivera RN 08/19/21 07:58:27 [facility] IntraOp Intraoperative Assessment Entry 1 Handoff Method [...] Modified By: Josh Rivera RN 08/19/21 07:59:09 [facility] IntraOp Intraoperative Equipment Entry 1 Type Monitoring Equipment Intraop Monitoring Electrocardiogram Three lead placement (ECG) Electrode Placement Blood Pressure Non-Invasive BP Device Source Blood Pressure Arm, right upper Location Pulse Oximeter Hand, left Probe Site Antiembolic Devices Scopes Photo/Video Documentation Last Modified By: Josh Rivera RN 08/19/21 07:59:29 [facility] IntraOp Medication Admin Entry 1 Entry 2 Medication/Irrigant LIDOCAINE 1% WITH EPI Heplock 100units/ml 5ml 1:100,000 vial - [id number] Combo Med List Time Administered 08/19/21 07:59:00 08/19/21 07:59:00 Route of LOCAL HEP LOCK Administration Dose Dose 30 10 Unit of Measure ml ml Volume Administered By PEARSON, CATALINAMESHA JOHN M, MD-SUR Procedure Irrigation Irrigant Volume In Irrigant Volume Out Last Modified By: Josh Rivera RN Pantano, Scott, RN 08/19/21 08:00:16 08/19/21 08:00:16 [facility] IntraOp Patient Positioning Entry 1 Procedure Vascular [...] Modified By: Josh Rivera RN 08/19/21 07:54:11 [facility] IntraOp Sign In Entry 1 Patient, Site, [...] Modified By: Josh Rivera RN 08/19/21 08:00:24 [facility] IntraOp Sign Out Entry 1 RN Confirmation [...] Modified By: Josh Rivera RN 08/19/21 08:35:34 [facility] IntraOp Sign Out Audit 08/19/21 08:35:34 Rn Hedis: JAZLYN Modifier: PANTANOS <+> 1 RN Sign Out Signature <+> 1 RN Sign Out Signature Date/Time <+> 1 Urinary Catheter Documented in IView [facility] IntraOp Skin Prep Entry 1 Procedure Vascular Access Insertion Prescribed N/A Pre-Surgical Prep Completed Prep Area CHIN THRU CHEST INCLUDE BILATERAL SHOULDERS Intraop Prep Prep Agents Chloraprep Hair Removal Last Modified By: Josh Rivera RN 08/19/21 07:58:31 [facility] IntraOp Surgical Procedures Entry 1 Procedure Vascular Access Insertion Additional (PORT A CATH PLACEMENT) Procedure Description Primary Procedure Yes Primary Surgeon NENA PEARSON MD-TATYANA Start 08/19/21 07:51:00 Stop 08/19/21 08:17:00 Anesthesia Type MAC Specialty General Wound Class I - Clean Last Modified By: Josh Rivera RN 08/19/21 08:35:09 [facility] IntraOp Surgical Procedures Audit 08/19/21 08:35:09 Rn Hedis: JAZLYN Modifier: JUDITHS <+> 1 Stop [facility] IntraOp Temp Regulation Devices Entry 1 Temp Regulation Temperature Warm blankets Regulation Device Temperature Full body Regulation Site Temperature ERNESTO SOUSA APRN, Regulation Device COMMODITY LEAD Applied by Last Modified By: Josh Rivera RN 08/19/21 07:54:19 [facility] IntraOP Time Out Entry 1 Procedure to [...] Modified By: Josh Rivera RN 08/19/21 08:02:27 [facility] IntraOP Time Out Audit 08/19/21 08:02:27 Rn Hedis: JAZLYN Modifier: PANTANOS 1 <+> Beta Alessandra Administered 1 <*> Procedure to be Performed Vascular Access Insertion 08/19/21 08:00:58 Rn Hedis: JAZLYN Modifier: PANTANOS 1 <+> All activity [...] <+> Team Verbally Confirms Information 08/19/21 08:00:32 Rn Hedis: JAZLYN Modifier: PANTANOS <+> 1 Procedure to be Performed [facility] IntraOp X-Ray and Images Entry 1 X-Ray/Imaging Type Fluoroscopy Fluoroscopy Type C-Arm Site CHEST Street Photographer Name David Greene, Thermal Cutting Machine Operator Protective Devices Yes Used Last Modified By: Josh Rivera RN 08/19/21 08:04:48 Case Comments <None> Finalized By: WILNRE DUPONT Document Signatures Signed By: Josh Rivera RN 08/19/21 08:35 WILNER DUPONT 08/20/21 09:11 Unfinalized History Date/Time Username Reason for Unfinalizing Freetext Reason for Unfinalizing 08/20/21 09:10 PAM Correct Billing Electronically signed by Lanny [facility] Conversion Bad Credit Collector Cerner at 03/09/2023 8:49 PM CDT documented in this encounter Plan of Treatment Not on file documented as of this encounter Visit Diagnoses Not on filedocumented in this encounter Care Teams Hotel Baggage Handler Relationship Specialty Start Date End Date Reji Castro MD [address] [place] [address] PCP - General Adolescent Medicine 10/02/22 documented as of this encounter
--- OUTSIDE RECORDS SUMMARY | 2025-05-07 13:05 | XMS_ITS | Encounter Summary ---
Author Organization [employer] Address [address] [place] [address] Care Team Providers Care Material Requirements Worker Name Role Phone Reji Castro MD Primary Care Provider [phone] Encounter Details Date Type Department Care Team (Late st Contact Info) Description 08/19/2021 Transcribed Document [facility] [place] Family Medicine [address] [place] [address] ProviderDelvin MD [address] [place] [address] Social History Tobacco Use Types Packs/Day Years [...] on filedocumented in this encounter Care Teams Material Requirements Worker Relationship Specialty Start Date End Date Reji Castro MD [address] [place] [address] PCP - General Adolescent Medicine 10/02/22 documented as of this encounter
--- OUTSIDE RECORDS SUMMARY | 2025-05-07 13:05 | XMS_ITS | Encounter Summary ---
Author Organization [employer] Address [address] [place] [address] Care Team Providers Care Motorcycle Mechanic Apprentice Name Role Phone Reji Castro MD Primary Care Provider [phone] Encounter Details Date Type Department Care Team (Late st Contact Info) Description 08/14/2021 Transcribed Document [facility] [place] [address] ProviderDelvin MD [address] [place] [address] Social History Tobacco Use Types Packs/Day Years [...] back to her room in stable condition. /[id number] MD DOTTIE Pollard/TONYA / DOTTIE / KENDRA /[id number] documented in this encounter Plan of Treatment Not on file documented as of this encounter Visit Diagnoses Not on filedocumented in this encounter Care Teams Motorcycle Mechanic Apprentice Relationship Specialty Start Date End Date Reji Castro MD [address] [place] [address] PCP - General Adolescent Medicine 10/02/22 documented as of this encounter
--- OUTSIDE RECORDS SUMMARY | 2025-05-07 13:05 | XMS_ITS | Encounter Summary ---
Author Organization [employer] Address [address] [place] [address] Care Team Providers Care Analytics Senior Manager Name Role Phone Reji Castro MD Primary Care Provider [phone] Encounter Details Date Type Department Care Team (Late st Contact Info) Description 08/12/2021 Transcribed Document [facility] [place] [address] [place] [address] ProviderDelvin MD [address] [place] [address] Social History Tobacco Use Types Packs/Day Years [...] On: 08/12/2021 5:00 EDT by Morelia Jose, [facility] Unit Coord Height and Weight, Routine Routine Weight Source : Standing scale Routine Weight Entry Format : [place] Routine Weight, Pounds : 223 lb Routine Weight, Ounces : 4 oz Routine Weight Calculation : 101.48 kg Height Source : Stated Height Entry Format : [place] Height, Feet : 5 ft Height, Inches : 4 Inch Clinical Height : 162.56 cm Body Surface Area (BSA), Routine : 2.05 m2 Body Mass Index (BMI), Routine : 38.4 kg/m2 Morelia Jose, Review Specialist-Health Unit Coord - 08/12/2021 5:18 EDT documented in this encounter Plan of Treatment Not on file documented as of this encounter Visit Diagnoses Not on filedocumented in this encounter Care Teams Analytics Senior Manager Relationship Specialty Start Date End Date Reji Castro MD [address] [place] [address] PCP - General Adolescent Medicine 10/02/22 documented as of this encounter
--- OUTSIDE RECORDS SUMMARY | 2025-05-07 13:05 | XMS_ITS | Encounter Summary ---
Author Organization [employer] Address [address] [place] [address] Care Team Providers Care Duck Farmer Name Role Phone Reji Castro MD Primary Care Provider [phone] Encounter Details Date Type Department Care Team (Late st Contact Info) Description 08/14/2021 Transcribed Document [facility] [place] [facility] [place] [address] ProviderDelvin MD [facility] [place] [address] Social History Tobacco Use Types Packs/Day Years [...] # 0.71 x10(3)/uL (Low) 08/13/2021 23:47 EDT [place] % 10.6 % (High) 08/13/2021 23:47 EDT [place] # 0.58 K/uL 08/13/2021 23:47 EDT Eos [...] (Low) 08/13/2021 18:40 EDT Electronically signed by [facility], [facility] Conversion Knitting Machine Mechanic Cerner at 03/09/2023 8:31 PM CDT documented in this encounter Plan of Treatment Not on file documented as of this encounter Visit Diagnoses Not on filedocumented in this encounter Care Teams Duck Farmer Relationship Specialty Start Date End Date Reji Castro MD [address] [place] [address] PCP - General Adolescent Medicine 10/02/22 documented as of this encounter
--- OUTSIDE RECORDS SUMMARY | 2025-05-07 13:05 | XMS_ITS | Encounter Summary ---
Author Organization [employer] Address [address] [place] [address] Care Team Providers Care Registered Nurse Post Partum Name Role Phone Reji Castro MD Primary Care Provider + [phone] Encounter Details Date Type Department Care Team (Late st Contact Info) Description 08/25/2021 Transcribed Document [facility] [place] Family Medicine [address] [place], [place] [id number] ProviderDelvin MD [address] [place] [address] Social History Tobacco Use Types Packs/Day Years [...] cefTRIAXone: 2 Gram, 100 mL/Hr, IV Piggyback, [id number] diphenhydrAMINE: 25 mg, Oral, Q6H, PRN: Itching [...] Oral, BID cefTRIAXone 2 Gram, IV Piggyback, [id number] citalopram 20 mg tab 40 mg 2 [...] Bioprosthetic mitral valve replacement / SNOMED CT 054346092 / Confirmed Chronic kidney disease / SNOMED CT 3511747274 / Confirmed COPD - Chronic obstructive pulmonary disease / SNOMED CT 968235115 / Confirmed History of obstructive sleep apnea / IMO 43784517 / Confirmed HLD - Hyperlipidemia / SNOMED CT 278695214 / Confirmed HTN - Hypertension / SNOMED CT 1788614310 / Confirmed Canceled: Atrial fibrillation / SNOMED CT 78460572, Active Problems (25) AIHA (autoimmune hemolytic anemia) [...] on filedocumented in this encounter Care Teams Registered Nurse Post Partum Relationship Specialty Start Date End Date Reji Castro MD [address] [place] [address] PCP - General Adolescent Medicine 10/02/22 documented as of this encounter
--- OUTSIDE RECORDS SUMMARY | 2025-05-07 13:05 | XMS_ITS | Encounter Summary ---
Author Organization [employer] Address [address] [place] [address] Care Team Providers Care Multiple Drum Sander Helper Name Role Phone Reji Castro MD Primary Care Provider [phone] Encounter Details Date Type Department Care Team (Late st Contact Info) Description 08/14/2021 Transcribed Document [facility] [place] [facility] [place] [address] ProviderDelvin MD [facility] [place] [address] Social History Tobacco Use Types Packs/Day Years Used Date Smoking Tobacco: Never Assessed Comments Unknown Sex and Gender Information Value Date Recorded Sex Assigned at Not on file Legal Sex Female 4:32 PM CDT Gender Identity Not on file Sexual Orientation Not on file documented as of this encounter Miscellaneous Notes * Cerner Conversion Note - Delvin ProviderMD - 08/14/2021 2:00 AM CDT Publicity Director Details Entered On: 08/14/2021 6:50 EDT Performed [...] on filedocumented in this encounter Care Teams Multiple Drum Sander Helper Relationship Specialty Start Date End Date Reji Castro MD [address] [place] [id number] PCP - General Adolescent Medicine 10/02/22 documented as of this encounter
--- OUTSIDE RECORDS SUMMARY | 2025-05-07 13:05 | XMS_ITS | Encounter Summary ---
Author Organization [employer] Address [address] [place] [address] Care Team Providers Care Drive Worker Name Role Phone Reji Castro MD Primary Care Provider [phone] Encounter Details Date Type Department Care Team (Late st Contact Info) Description 08/11/2021 Transcribed Document [facility] [place] Family Medicine [address] [place] [address] ProviderDelvin MD [address] [place] [address] Social History Tobacco Use Types Packs/Day Years [...] Communication Barrier : None Primary Language : Norwegian Any Spiritual/Cultural Needs or Requests : No [...] Neurologic ASMT, ED Neurologic Assessment WDL : [facility] MARIPOSA JACQUES RN - 08/11/2021 18:46 EDT [...] on filedocumented in this encounter Care Teams Drive Worker Relationship Specialty Start Date End Date Reji Castro MD [address] [place] [address] PCP - General Adolescent Medicine 10/02/22 documented as of this encounter
--- OUTSIDE RECORDS SUMMARY | 2025-05-07 13:05 | XMS_ITS | Encounter Summary ---
Author Organization [employer] Address [address] [place] [address] Care Team Providers Care Manager Portable Name Role Phone Reji Castro MD Primary Care Provider [phone] Encounter Details Date Type Department Care Team (Late st Contact Info) Description 08/26/2021 Transcribed Document [facility] [place] Family Medicine [address] [place] [address] ProviderDelvin MD [address] [place] [address] Social History Tobacco Use Types Packs/Day Years [...] cefTRIAXone: 2 Gram, 100 mL/Hr, IV Piggyback, [id number] diphenhydrAMINE: 25 mg, Oral, Q6H, PRN: Itching [...] Oral, BID cefTRIAXone 2 Gram, IV Piggyback, [id number] citalopram 20 mg tab 40 mg 2 [...] Bioprosthetic mitral valve replacement / SNOMED CT 302021057 / Confirmed Chronic kidney disease / SNOMED CT 3614064381 / Confirmed COPD - Chronic obstructive pulmonary disease / SNOMED CT 800494842 / Confirmed History of obstructive sleep apnea / IMO 41987532 / Confirmed HLD - Hyperlipidemia / SNOMED CT 066126822 / Confirmed HTN - Hypertension / SNOMED CT 3781376685 / Confirmed Canceled: Atrial fibrillation / SNOMED CT 60118393, Active Problems (25) AIHA (autoimmune hemolytic anemia) [...] 29.0 \ Radiology Results (Last 48 hours) [id number] -- 08/11/2021 21:21 CR Chest 1 Vw [...] Hold home meds SSI Depression Celexa Pain [place] 10 mg every 6 hours as needed CODE STATUS. Full code Dispo: H/H stable, neg trops, clinically better need therapeutic inr for discharge, pharm managing. hopefully in am Time spent 26 minutes documented in this encounter Plan of Treatment Not on file documented as of this encounter Visit Diagnoses Not on filedocumented in this encounter Care Teams Manager Portable Relationship Specialty Start Date End Date Reji Castro MD [address] [place] [address] PCP - General Adolescent Medicine 10/02/22 documented as of this encounter
--- OUTSIDE RECORDS SUMMARY | 2025-05-07 13:05 | XMS_ITS | Encounter Summary ---
Author Organization [employer] Address [address] [place] [address] Care Team Providers Care Radio Tester Name Role Phone Reji Castro MD Primary Care Provider [phone] Encounter Details Date Type Department Care Team (Late st Contact Info) Description 08/25/2021 Transcribed Document [facility] [place] Family Medicine [facility] [address] [place], [place] [address] ProviderDelvin MD [address] [place] [address] Social History Tobacco Use Types Packs/Day Years [...] cefTRIAXone: 2 Gram, 100 mL/Hr, IV Piggyback, T02HPlt. citalopram: 40 mg, Oral, Daily. diphenhydrAMINE: 25 [...] floor. Thank you, Andrea Moraes, PharmD PGY1 Fruit Cutter Pager: [phone], Ext. [phone] documented in this encounter Plan of Treatment Not on file documented as of this encounter Visit Diagnoses Not on filedocumented in this encounter Care Teams Radio Tester Relationship Specialty Start Date End Date Reji Castro MD [address] [place] [id number] PCP - General Adolescent Medicine 10/02/22 documented as of this encounter
--- OUTSIDE RECORDS SUMMARY | 2025-05-07 13:05 | XMS_ITS | Encounter Summary ---
Author Organization [employer] Address [address] [place] [address] Care Team Providers Care Counter Attendant Name Role Phone Reji Castro MD Primary Care Provider [phone] Encounter Details Date Type Department Care Team (Late st Contact Info) Description 08/16/2021 Transcribed Document [facility] [place] Family Medicine [address] [place] [address] ProviderDelvin MD [address] [place] [address] Social History Tobacco Use Types Packs/Day Years [...] on filedocumented in this encounter Care Teams Counter Attendant Relationship Specialty Start Date End Date Reji Castro MD [address] [place] [address] PCP - General Adolescent Medicine 10/02/22 documented as of this encounter
--- OUTSIDE RECORDS SUMMARY | 2025-05-07 13:05 | XMS_ITS | Encounter Summary ---
Author Organization [employer] Address [address] [place] [address] Care Team Providers Care Police Investigator Name Role Phone Reji Castro MD Primary Care Provider + [phone] Encounter Details Date Type Department Care Team (Late st Contact Info) Description 08/16/2021 Transcribed Document [facility] [place] Family Medicine [facility] [place] [address] ProviderDelvin MD [address] [place] [address] Social History Tobacco Use Types Packs/Day Years [...] mL - 700 mg, IV Piggyback, Inj, [id number], infuse over 30 Minute(s), Routine Cardiovascular metoprolol [...] hrs) Last Charted Minimum Maximum Temp 98 ([facility] 10:50) 97.6 ([facility] 06:00) 98 ([facility] 18:00) Apical HR 76 ([facility] 20:32) 76 ([facility] 20:32) 76 ([facility] 20:32) Mon HR 81 (AUG 16 10:50) 67 ([facility] 14:52) 85 ([facility] 18:00) Resp Rate 18 (AUG 16 10:50) 14 (AUG 15 23:00) 19 ([facility] 18:00) SBP 112 (AUG 16 10:50) 95 ([facility] 14:52) 114 ([facility] 23:00) DBP 60 (AUG 16 10:50) L 45 ([facility] 14:52) 63 ([facility] 18:00) MAP 74 (AUG 16 10:50) 63 ([facility] 23:00) 83 ([facility] 18:00) SpO2 97 ([facility] 10:50) L 92 ([facility] 14:52) 99 (AUG 16 03:39) General: No [...] studies if needed Injectafer can be given. documented in this encounter Plan of Treatment Not on file documented as of this encounter Visit Diagnoses Not on filedocumented in this encounter Care Teams Police Investigator Relationship Specialty Start Date End Date Reji Castro MD [address] [place] [address] PCP - General Adolescent Medicine 10/02/22 documented as of this encounter
--- OUTSIDE RECORDS SUMMARY | 2025-05-07 13:05 | XMS_ITS | Encounter Summary ---
Author Organization [employer] Address [address] [place] [address] Care Team Providers Care A&P Mechanic Name Role Phone Reji Castro MD Primary Care Provider [phone] Encounter Details Date Type Department Care Team (Late st Contact Info) Description 08/16/2021 Transcribed Document [facility] [place] Family Medicine [facility] [place] [address] ProviderDelvin MD [address] [place] [address] Social History Tobacco Use Types Packs/Day Years [...] HPI: 56 y/o F presenting to [facility] with history of COPD, atrial fibrillation, CKD [...] mg, 14 mL, 128 mL/Hr, IV Piggyback, K15TOeh. diphenhydrAMINE: 25 mg, Oral, Q6H, PRN: Itching. [...] questions. Thank you, Andrea Moraes, GwendolynD PGY1 Fsr Pager: [phone], Ext. [phone] documented in this encounter Plan of Treatment Not on file documented as of this encounter Visit Diagnoses Not on filedocumented in this encounter Care Teams A&P Mechanic Relationship Specialty Start Date End Date Reji Castro MD [address] [place] [id number] PCP - General Adolescent Medicine 10/02/22 documented as of this encounter
--- OUTSIDE RECORDS SUMMARY | 2025-05-07 13:05 | XMS_ITS | Encounter Summary ---
Author Organization [employer] Address [address] [place] [address] Care Team Providers Care Eyeglass Frame Truer Name Role Phone Reji Castro MD Primary Care Provider + [phone] Encounter Details Date Type Department Care Team (Late st Contact Info) Description 08/12/2021 Transcribed Document [facility] [place] [facility] [place] [address] ProviderDelvin MD [facility] [place] [address] Social History Tobacco Use Types Packs/Day Years [...] her port could not be accessed. Her retail loss prevention officer aspirated fluid from the port that was evidently purulent. I have not yet been able to track down that culture. After the aspiration she developed fever to 103, severe CHEUNG, myalgias and arthralgias. She was admitted to [facility]. She was in the hospital for [...] PVE. 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 [...] mg, 14 mL, 128 mL/Hr, IV Piggyback, [id number] DAPTOmycin + Sodium Chloride 0.9% intravenous solution 50 mL: 700 mg, 14 mL, 128 mL/Hr, IV Piggyback, [id number] Dextrose 50% injection: 12.5 Gram, IV Push, [...] tenderness, No swelling, No deformity. Integumentary: Warm, [place]. Neurologic: Alert, Oriented, No focal deficits. Psychiatric: [...] -- Await CHUCHO Electronically signed by Lanny [facility] Conversion Lining Feller Blindstitch Cerner at 03/09/2023 9:02 PM CDT documented in this encounter Plan of Treatment Not on file documented as of this encounter Visit Diagnoses Not on filedocumented in this encounter Care Teams Eyeglass Frame Truer Relationship Specialty Start Date End Date Reji Castro MD [address] [place] [address] PCP - General Adolescent Medicine 10/02/22 documented as of this encounter
--- OUTSIDE RECORDS SUMMARY | 2025-05-07 13:05 | XMS_ITS | Encounter Summary ---
Author Organization [employer] Address [address] [place] [address] Care Team Providers Care Lacquer Maker Name Role Phone Reji Castro MD Primary Care Provider [phone] Encounter Details Date Type Department Care Team (Late st Contact Info) Description 08/19/2021 Transcribed Document [facility] [place] Family Medicine [address] [place] [address] ProviderDelvin MD [address] [place] [address] Social History Tobacco Use Types Packs/Day Years [...] 11:39 EDT Electronically signed by Lanny [facility] Conversion Process Mechanic Cerner at 03/09/2023 8:47 PM CDT documented in this encounter Plan of Treatment Not on file documented as of this encounter Visit Diagnoses Not on filedocumented in this encounter Care Teams Lacquer Maker Relationship Specialty Start Date End Date Reji Castro MD [address] [place] [address] PCP - General Adolescent Medicine 10/02/22 documented as of this encounter
--- OUTSIDE RECORDS SUMMARY | 2025-05-07 13:05 | XMS_ITS | Encounter Summary ---
Author Organization [employer] Address [address] [place] [address] Care Team Providers Care Dye Can Operator Name Role Phone Reji Castro MD Primary Care Provider [phone] Encounter Details Date Type Department Care Team (Late st Contact Info) Description 08/20/2021 Transcribed Document [facility] [place] Family Medicine [address] [place] [address] ProviderDelvin MD [facility] [place] [address] Social History Tobacco Use Types Packs/Day Years [...] # 0.38 x10(3)/uL (Low) 08/20/2021 07:38 EDT [place] % 7.9 % 08/20/2021 07:38 EDT [place] # 0.64 K/uL 08/20/2021 07:38 EDT Eos [...] (Critical) 08/20/2021 15:16 EDT Electronically signed by [facility], [facility] Conversion Irrigator Cerner at 03/09/2023 8:31 PM CDT documented in this encounter Plan of Treatment Not on file documented as of this encounter Visit Diagnoses Not on filedocumented in this encounter Care Teams Dye Can Operator Relationship Specialty Start Date End Date Reji Castro MD [address] [place] [address] PCP - General Adolescent Medicine 10/02/22 documented as of this encounter
--- OUTSIDE RECORDS SUMMARY | 2025-05-07 13:05 | XMS_ITS | Encounter Summary ---
Author Organization [employer] Address [address] [place] [address] Care Team Providers Care Equipment Sterilizer Name Role Phone Reji Castro MD Primary Care Provider [phone] Encounter Details Date Type Department Care Team (Late st Contact Info) Description 08/20/2021 Transcribed Document [facility] [place] Family Medicine [address] [place] [address] ProviderDelvin MD [address] [place] [address] Social History Tobacco Use Types Packs/Day Years [...] On: 08/20/2021 5:00 EDT by Eula Tinoco Vegetable Sorter-Health Unit Coord Height and Weight, Routine Routine Weight Source : Standing scale Routine Weight Entry Format : [place] Routine Weight, Pounds : 204 lb Routine Weight, Ounces : 7 oz Routine Weight Calculation : 92.93 kg Height Source : Stated Height Entry Format : [place] Height, Feet : 5 ft Height, Inches : 4 Inch Clinical Height : 162.56 cm Body Surface Area (BSA), Routine : 1.98 m2 Body Mass Index (BMI), Routine : 35.17 kg/m2 Eula Tinoco Vegetable Sorter-Health Unit Coord - 08/20/2021 6:41 EDT Electronically signed by Lanny, [facility] Conversion Route Delivery Manager Cerner at 03/09/2023 8:44 PM CDT documented in this encounter Plan of Treatment Not on file documented as of this encounter Visit Diagnoses Not on filedocumented in this encounter Care Teams Equipment Sterilizer Relationship Specialty Start Date End Date Reji Castro MD [address] [place] [id number] PCP - General Adolescent Medicine 10/02/22 documented as of this encounter
--- OUTSIDE RECORDS SUMMARY | 2025-05-07 13:05 | XMS_ITS | Encounter Summary ---
Author Organization [employer] Address [address] [place] [address] Care Team Providers Care Panama Hat Blocker Name Role Phone Reji Castro MD Primary Care Provider + [phone] Encounter Details Date Type Department Care Team (Late st Contact Info) Description 08/11/2021 Transcribed Document [facility] [place] [facility] [place] [address] ProviderDelvin MD [address] [place] [address] Social History Tobacco Use Types Packs/Day Years [...] 180 units [facility] to [facility]. Primary Care Provider DEREK ROBISON DR History of Present Illness 56-year-old female with a history of COPD, atrial fibrillation, CKD unknown stage, type 2 diabetes, chronic anemia that has needed blood transfusions in the past, CAD, mitral valve replacement presents to [facility] emergency department in [place] after being told by outside provider that [...] fibrillation 5. Diabetes mellitus type II 6. intermediate current use of anticoagulant At risk for [...] # 0.76 K/uL (Low) 08/11/2021 17:59 EDT [place] % 8.9 % 08/11/2021 17:59 EDT [place] # 0.61 K/uL 08/11/2021 17:59 EDT Eos [...] Appearance CLEAR2 08/11/2021 17:59 EDT Urine Specific [place] 1.007 08/11/2021 17:59 EDT Urine pH Dipstick [...] Code, Continuous Order Electronically signed by Lanny [facility] Conversion Clinical Trials Assistant Cerner at 03/09/2023 8:40 PM CDT documented in this encounter Plan of Treatment Not on file documented as of this encounter Visit Diagnoses Not on filedocumented in this encounter Care Teams Panama Hat Blocker Relationship Specialty Start Date End Date Reji Castro MD [address] [place] [id number] PCP - General Adolescent Medicine 10/02/22 documented as of this encounter
--- OUTSIDE RECORDS SUMMARY | 2025-05-07 13:05 | XMS_ITS | Encounter Summary ---
Author Organization [employer] Address [address] [place] [address] Care Team Providers Care Journalism Intern Name Role Phone Reji Castro MD Primary Care Provider [phone] Encounter Details Date Type Department Care Team (Late st Contact Info) Description 08/20/2021 Transcribed Document [facility] [place] [facility] [place] [address] ProviderDelvin MD [address] [place] [address] Social History Tobacco Use Types Packs/Day Years [...] 13:33 EDT by MADINA LOVETT, JEREMIAH - Wire Coating Machine OperatorLeather Repairer Progress Note Discharge Arrangements : Patient Post-Acute [...] Rounds? : Yes MADINA LOVETT RN - Wire Coating Machine Operator - 08/20/2021 13:33 EDT Narrative Progress Note Narrative Progress Note : RRS Low Boost 5 Day 07/30 Patient was admitted for staph infection and port removal. She had a new port placed on 08/19. Patient needs to remain inpatient until her coumadin is at a therapeutic level per at [facility]. Patient will need IV rocephin until 09/08. Patient will need home health and says she has used [facility] home health in the past. CM will [...] is at a therapeutic level per at [facility]. Waiting on culture results for final abx plan. May need IV abx at home via port. Patient will need home health and lvies in [place]. [facility] home health is a possibility. MADINA LOVETT RN - Wire Coating Machine Operator - 08/19/21 15:40:22 RRS Low Boost 5 [...] will need home health and lives in [place]. [facility] home health is a possibility. CM will continue to follow. DCP: MADINA LOVETT RN - Wire Coating Machine Operator - 08/18/21 15:47:49 (late entry from 08/15-) [...] and send referrals as appropriate. JULIO STEWART, RN-Wire Coating Machine Operator ED - 08/18/21 10:38:39 MADINA LOVETT, JEREMIAH - Wire Coating Machine Operator - 08/20/2021 13:33 EDT Electronically signed by [facility], [facility] Conversion Scallop Dredger Cerner at 03/09/2023 8:49 PM CDT documented in this encounter Plan of Treatment Not on file documented as of this encounter Visit Diagnoses Not on filedocumented in this encounter Care Teams Journalism Intern Relationship Specialty Start Date End Date Reji Castro MD [address] [place] [id number] PCP - General Adolescent Medicine 10/02/22 documented as of this encounter
--- OUTSIDE RECORDS SUMMARY | 2025-05-07 13:05 | XMS_ITS | Encounter Summary ---
Author Organization [employer] Address [address] [place] [address] Care Team Providers Care Gravity Meter Operator Name Role Phone Reji Castro MD Primary Care Provider [phone] Encounter Details Date Type Department Care Team (Late st Contact Info) Description 08/19/2021 Transcribed Document [facility] [place] Family Medicine [facility] [place] [address] [place] [address] Social History Tobacco Use Types Packs/Day Years [...] her port could not be accessed. Her carrier blower aspirated fluid from the port that was evidently purulent. I have not yet been able to track down that culture. After the aspiration she developed fever to 103, severe CHEUNG, myalgias and arthralgias. She was admitted to [facility]. She was in the hospital [...] antibiotics. On 08/08 she presented to a [facility] after she developed severe CHEUNG and myalgias w/o prominent fever. She was subsequently contacted and told to report to [facility] because she had + blood cutures concerning for an infected portacath +/- PVE. 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 Integumentary: Warm, [place]. Neurologic: Alert, Oriented, No focal deficits. Psychiatric: [...] on filedocumented in this encounter Care Teams Gravity Meter Operator Relationship Specialty Start Date End Date Reji Castro MD [address] [place] [address] PCP - General Adolescent Medicine 10/02/22 documented as of this encounter
--- OUTSIDE RECORDS SUMMARY | 2025-05-07 13:05 | XMS_ITS | Encounter Summary ---
Author Organization [employer] Address [address] [place] [address] Care Team Providers Care Methane Gas Collection System Operator Name Role Phone Reji Castro MD Primary Care Provider [phone] Encounter Details Date Type Department Care Team (Late st Contact Info) Description 08/12/2021 Transcribed Document [facility] [place] [facility] [place] [address] ProviderDelvin MD [address] [place] [address] Social History Tobacco Use Types Packs/Day Years [...] Vancomycin HPI: 56 y/o F presenting to [facility] with history of COPD, atrial fibrillation, CKD [...] Encounter/Past 24 Hours) Creatinine Level 2.40 mg/dL [place] 08/12/2021 01:05 Bun/Creatinine 28.8 [place] 08/12/2021 01:05 Est. CrCl: 35 mL/min Intake [...] questions. Thank you, Andrea Moraes, PharmD PGY1 Arts And Crafts Teacher Pager: [phone], Ext. [phone] Electronically signed by Lanny, [facility] Conversion Visual Education Teacher Cerner at 03/09/2023 8:45 PM CDT documented in this encounter Plan of Treatment Not on file documented as of this encounter Visit Diagnoses Not on filedocumented in this encounter Care Teams Methane Gas Collection System Operator Relationship Specialty Start Date End Date Reji Castro MD [address] [place] [id number] PCP - General Adolescent Medicine 10/02/22 documented as of this encounter
--- OUTSIDE RECORDS SUMMARY | 2025-05-07 13:05 | XMS_ITS | Encounter Summary ---
Author Organization [employer] Address [address] [place] [address] Care Team Providers Care Supervisor Rocket Propellant Plant Name Role Phone Reji Castro MD Primary Care Provider [phone] Encounter Details Date Type Department Care Team (Late st Contact Info) Description 08/14/2021 Transcribed Document [facility] [place] [address] [place] [address] ProviderDelvin MD [address] [place] [address] Social History Tobacco Use Types Packs/Day Years Used Date Smoking Tobacco: Never Assessed Comments Unknown Sex and Gender Information Value Date Recorded Sex Assigned at Not on file Legal Sex Female 4:32 PM CDT Gender Identity Not on file Sexual Orientation Not on file documented as of this encounter Miscellaneous Notes * Cerner Conversion Note - Delvin ProviderMD - 08/14/2021 7:45 AM CDT [facility] Main OR Preop Summary Primary Physician: NENA PEARSON MD-[facility] Finalized Date/Time: 08/14/21 09:52:23 Pt. Name: IRINA TAMAYO/Sex: 1965 Female Med Rec #: [id number] Physician: VINCE BELLO MD Financial #: [id number] Pt. Type: I Room/Bed: 454/1 Admit/Disch: 08/11/21 21:21:00 - Institution: [facility] PreOp Case Times Entry 1 In Preop 08/14/21 06:28:00 Ready for Holding n/a Room Patient Ready for 08/14/21 06:46:00 Surgery Patient Out of Preop 08/14/21 07:32:00 Patient Out of n/a Holding Room Last Modified By: Charan Dutton Rn 08/14/21 09:52:22 [facility] PreOp Case Times Audit 08/14/21 09:52:22 Maritime Engineer: [id number] Modifier: [id number] <+> 1 Patient Out of Preop Finalized By: Charan Dutton, Rn Document Signatures Signed By: Charan Dutton Rn 08/14/21 09:52 Electronically signed by Lanny [facility] Conversion Rehabilitation Tech Cerner at 03/09/2023 8:46 PM CDT documented in this encounter Plan of Treatment Not on file documented as of this encounter Visit Diagnoses Not on filedocumented in this encounter Care Teams Supervisor Rocket Propellant Plant Relationship Specialty Start Date End Date Reji Castro MD [address] [place] [address] PCP - General Adolescent Medicine 10/02/22 documented as of this encounter
--- OUTSIDE RECORDS SUMMARY | 2025-05-07 13:05 | XMS_ITS | Encounter Summary ---
Author Organization [employer] Address [address] [place] [address] Care Team Providers Care Pharm Spec Name Role Phone Reji Castro MD Primary Care Provider [phone] Encounter Details Date Type Department Care Team (Late st Contact Info) Description 08/14/[address] [facility] [place] Family Medicine [facility] [place] [address] ProviderDelvin MD [address] [place] [address] Social History Tobacco Use Types Packs/Day Years [...] Celestin MD - 08/14/2021 7:[address] [facility] Main OR IntraOp Summary Primary Physician: NENA PEARSON MD-SUR Finalized Date/Time: 08/18/21 09:41:55 Pt. Name: TAMAYO IRINAGE Solis/Sex: 1965 Female Med Rec #: [id number] Physician: VINCE BELLO MD Financial #: [id number] Pt. Type: I Room/Bed: [facility]/ Admit/Disch: 08/11/21 21:21:00 - Institution: [facility] IntraOp Case Attendance Entry 1 Entry 2 Entry 3 Case Attendee NENA PEARSON MD-SUR Montgomery, Hazel, RN Poe, Kali, RN Role Performed Surgeon/Proceduralist, Mixing And Dispensing Supervisor, First Mixing And Dispensing Supervisor, Second First Time In 08/14/21 07:34:00 08/14/21 [...] Case Attendee Randee Swain, Scrub TAMELA PRITCHETT, WINDOW CLERK BORIS VEGAS Tech MD-ANS Role Performed Scrub, First WINDOW CLERK/Nurse Cna Per Diem Anesthesiologist of Record Time In 08/14/21 07:34:00 08/14/21 07:34:00 08/14/21 07:34:00 Time Out 08/14/21 08:17:00 08/14/21 08:17:00 08/14/21 08:17:00 Procedure Vascular Access Removal Vascular Access Removal Vascular Access Removal Other Attendee Superficial Wound Closed By: Last Modified By: Erika Montgomery, Erika Chand, Erika Chand, JEREMIAH 08/14/21 08:22:17 08/14/21 08:22:17 08/14/21 08:22:17 Entry 7 Case Attendee OTHER, ATTENDEE #1 Role Performed WINDOW CLERK/Nurse Cna Per Diem Time In 08/14/21 07:34:00 Time Out 08/14/21 08:17:00 Procedure Vascular Access Removal Other Attendee JOEY HOBBS WINDOW CLERK STUDENT Superficial Wound Closed By: Last Modified By: Erika Montgomery RN 08/14/21 10:50:59 [facility] IntraOp Case Attendance Audit 08/14/21 10:50:59 Assistant Professor Of Life Sciences: LIAM Modifier: LIAM 7 <*> Procedure Vascular Access Removal 7 <*> Other Attendee JOEY PROCTOR WINDOW CLERK STUDENT 08/14/21 08:24:52 Assistant Professor Of Life Sciences: LAFAVEHM Modifier: LAFAVEHM <+> 7 Case Attendee <+> 7 Role Performed <+> 7 Time In <+> 7 Time Out <+> 7 Procedure <+> 7 Other Attendee 08/14/21 08:22:17 Assistant Professor Of Life Sciences: LAFAVEHM Modifier: LAFAVEHM 1 <+> Time In [...] Out 6 <*> Procedure Vascular Access Removal [facility] IntraOp Case Times Entry 1 Patient In Room Time 08/14/21 07:34:00 Out Room Time 08/14/21 08:17:00 Anesthesia Start Time 08/14/21 07:34:00 Stop Time 08/14/21 08:17:00 Surgery / Procedure Times Start Time 08/14/21 07:45:00 Stop Time 08/14/21 08:08:00 Last Modified By: Erika Montgomery RN 08/14/21 08:17:16 [facility] IntraOp Case Times Audit 08/14/21 08:17:16 Assistant Professor Of Life Sciences: LAFAVEHM Modifier: LAFAVEHM <+> 1 Out Room Time <+> 1 Stop Time <+> 1 Stop Time 08/14/21 07:46:45 Assistant Professor Of Life Sciences: LAFAVEHM Modifier: LAFAVEHM <+> [address] [facility] IntraOp Cautery Entry 1 ESU Identification Cautery Type Monopolar ESU ID Number [id number] ID Type Hospital Number Cautery Settings Cut Setting 30 Coag Setting 30 ESU Grounding Pad Ground Pad Type Reusable electrode pad Grounding Pad Type MEGADYNE PAD Comment Grounding Pad Site Posterior Grounding Pad Site Warm, dry and intact Skin Condition Before Cautery Grounding Pad Site Unchanged Skin Condition After Cautery Last Modified By: Erika Montgomery RN 08/14/21 07:19:50 [facility] IntraOp Communication Entry 1 Communication To Family/Significant other Communication By Erika Montgomery RN Date and Time 08/14/21 07:47:00 Last Modified By: Erika Montgomery RN 08/14/21 07:47:41 [facility] IntraOp Counts Verification Entry 1 Procedure Vascular Access Removal Count Info Count Type Sponge, Sharps, Miscellaneous Counts Verification Baseline/pre-procedure Sequence Counts Performed By Count Performed By Randee Swain Scrub (Scrub) Tech Count Performed By Jj Mancuso RN (RN) Last Modified By: Erika Montgomery RN 08/14/21 07:18:54 [facility] IntraOp Counts Final Entry 1 Procedure Vascular Access Removal Final Count Info Count Type Sponge, Sharps, Miscellaneous Counts Verification Skin Closure/end of Sequence procedure Count Results Correct, surgeon notified Counts Performed By Count Performed By Randee Swain Scrub (Scrub) Tech Count Performed By Jj Mancuso RN (RN) Last Modified By: Erika Montgomery RN 08/14/21 08:02:40 [facility] IntraOp Counts Final Audit 08/14/21 08:02:40 Assistant Professor Of Life Sciences: LIAM Modifier: LIAM 1 <*> Procedure Vascular Access Removal 1 <*> Count Type Sponge, Sharps, Miscellaneous 1 <*> Count Results Correct, surgeon notified 1 <+> Count Performed By (Scrub) 1 <+> Count Performed By (RN) 1 <*> Counts Verification Sequence Skin Closure/end of procedure [facility] IntraOp Cultures and Spec Summary Entry 1 Cultrures and Specimens Specimen Ordered: Yes Test(s) Culture(s)/Microbiology Requested/Final Disposition Last Modified By: Erika Montgomery RN 08/14/21 07:51:28 [facility] IntraOp Delays Entry 1 Delay Reason Other Duration 4 Minute(s) Comment MEDICATION DELAY Last Modified By: Erika Montgomery RN 08/14/21 07:49:40 [facility] IntraOp Departure from OR Entry 1 Integumentary Assessment Transfer/Handoff Transfer to Other Handoff Method Bedside/Face to face, Phone call, Online nursing summary Post-op Transport Stretcher/Roderick Via Patient Transport TAMELA PRITCHETT CRNA Accompanied by Transfer/Handoff RN REPORT ( ELEVATED Comments HOB WEIGHT OVER DRRESSING (IV BAG) RESTRICT USE LEFT ARM X [address] PEARSON. TRANSPORT TO FLOOR BY [facility] Last Modified By: Erika Montgomery RN 08/14/21 08:21:55 [facility] IntraOp Departure from OR Audit 08/14/21 08:21:55 Assistant Professor Of Life Sciences: LIAM Modifier: LAFBEAR 1 <*> Transfer/Handoff Comments TRANSPORT TO FLOOR BY [facility] 1 <+> Post-op Transport Via [facility] IntraOp Dressing and Packing Entry 1 Type Dressing Location L UPPER CHEST Wound Dressing Item 4x4's, Skin Closure Glue Other Comments PRESSURE DRESSING Last Modified By: Erika Montgomery RN 08/14/21 08:19:18 [facility] IntraOp Fire Risk Assessment Entry [...] Modified By: Erika Montgomery RN 08/14/21 07:49:49 [facility] IntraOp Fire Risk Assessment Audit 08/14/21 07:49:49 Assistant Professor Of Life Sciences: LIAM Modifier: LAFAVEHM <+> 1 Fire Risk Assessment Verified Date/Time [facility] IntraOp General Case Director Of Strategic Sourcing 1 Case Information OR OR 08 [facility] Case Level 1 Room Verified Yes Wound Class I - Clean Specialty General Anesthesia Type MAC ASA Class 4 Diagnosis Preop Diagnosis INFECTED SANAM CATH Postop Same As Preop No Postop Diagnosis SEE MD POST OP NOTES Last Modified By: Erika Montgomery RN 08/14/21 07:52:14 [facility] IntraOp General Case Data Audit 08/14/21 07:52:14 Assistant Professor Of Life Sciences: LIAM Modifier: [email or web address] <+> [address] [facility] IntraOp Intraoperative Assessment Entry 1 Handoff Method Bedside/Face to face, Phone call, Online nursing summary Valid History / Yes Physical in Chart Preoperative Yes Checklist Reviewed/Evaluated Allergies Reviewed Yes Patient is Latex No Sensitive Present Upon IVs Arrival to OR Last Modified By: Erika Montgomery RN 08/14/21 07:20:57 [facility] IntraOp Intraoperative Equipment Entry 1 Type Monitoring Equipment Equipment Juan Carlos Suction System Intraop Monitoring Antiembolic Devices Scopes Photo/Video Documentation Last Modified By: Erika Montgomery RN 08/14/21 07:21:08 [facility] IntraOp Medication Admin Entry 1 Medication/Irrigant lidocaine 1% w/ epinephrine 1:100,000 30ml vial - [id number] Route of LOCAL Administration Dose Dose 10 Unit of Measure ml Administered By NENA PEARSON MD-SUR Procedure Irrigation Last Modified By: Erika Montgomery RN 08/14/21 08:02:53 [facility] IntraOp Medication Admin Audit 08/14/21 08:02:53 Assistant Professor Of Life Sciences: LAFAVEHM Modifier: LAFAVEHM 1 <*> Medication/Irrigant lidocaine 1% w/ epinephrine 1:100,000 30ml vial - [id number] 1 <+> Dose [facility] IntraOp Patient Positioning Entry 1 [...] Modified By: Erika Montgomery RN 08/14/21 07:23:01 [facility] IntraOp Patient Positioning Audit 08/14/21 07:23:01 Assistant Professor Of Life Sciences: LAFAVEHM Modifier: LAFAVEHM 1 <*> Procedure Vascular Access Removal 1 <+> Positioning Verified by Anesthesia 1 <+> Positioning Verified by Surgeon 1 <+> Positioned By [facility] IntraOp Sign In Entry 1 [...] Modified By: Erika Montgomery RN 08/14/21 07:47:09 [facility] IntraOp Sign Out Entry 1 [...] Modified By: Erika Montgomery RN 08/14/21 08:22:10 [facility] IntraOp Sign Out Audit 08/14/21 08:22:10 Assistant Professor Of Life Sciences: LIAM Modifier: LAFAVEHM <+> 1 RN Sign Out Signature Date/Time [facility] IntraOp Skin Prep Entry 1 Procedure Vascular Access Removal Prescribed Yes Pre-Surgical Prep Completed Prep Area CHEST INCLUDE LEFT SHOULDER Intraop Prep Prep Agents Chloraprep Prep by NENA PEARSON MD-TATYANA Hair Removal Methods No hair removal performed Last Modified By: Erika Montgomery RN 08/14/21 07:49:03 [facility] IntraOp Surgical Procedures Entry 1 Procedure Vascular Access Removal Additional (PORT A CATH REMOVAL) Procedure Description Primary Procedure Yes Primary Surgeon NENA PEARSON MD-TATYANA Start 08/14/21 07:45:00 Stop 08/14/21 08:08:00 Anesthesia Type MAC Specialty General Wound Class I - Clean Last Modified By: Erika Montgomery RN 08/14/21 08:22:14 General Comments: PATIENT ON SCHEDULED ANTIBIOTICS/ NO ADDITIONAL ANTIBIOTICS PER SURGEON [facility] IntraOp Surgical Procedures Audit 08/14/21 08:22:14 Assistant Professor Of Life Sciences: LIAM Modifier: LAFAVEHM 1 <*> Stop 08/14/21 07:48:13 Assistant Professor Of Life Sciences: LIAM Modifier: LIAM 1 <*> Start 1 <*> Start [facility] IntraOP Time Out Entry 1 [...] for Unfinalizing 08/18/21 09:39 WATTSDR Correct Billing Electronically signed by Stevie Ca Conversion Preassembler Printed Circuit Board Cerner at 03/09/2023 8:33 PM CDT documented in this encounter Plan of Treatment Not on file documented as of this encounter Visit Diagnoses Not on filedocumented in this encounter Care Teams Pharm Spec Relationship Specialty Start Date End Date Reji Castro MD [address] [place] [address] PCP - General Adolescent Medicine 10/02/22 documented as of this encounter
--- OUTSIDE RECORDS SUMMARY | 2025-05-07 13:05 | XMS_ITS | Encounter Summary ---
Author Organization [employer] Address [address] [place] [address] Care Team Providers Care Mixer Crane Operator Name Role Phone Reji Castro MD Primary Care Provider [phone] Encounter Details Date Type Department Care Team (Late st Contact Info) Description 08/25/2021 Transcribed Document [facility] Family Medicine [address] [place] [address] ProviderDelvin MD [address] [place] [address] Social History Tobacco Use Types Packs/Day Years [...] On: 08/25/2021 10:48 EDT by Porfirio Caban, Flight Engineer Manager Cert Lead Meds to Bed Enrollment Patient Enrollment Decision: : No/do not enroll in meds to bed program Reason for Declining Meds to Bed Program: : Prefer to use home pharmacy Porfirio Caban Flight Engineer Manager Cert Lead - 08/26/2021 11:11 EDT documented in this encounter Plan of Treatment Not on file documented as of this encounter Visit Diagnoses Not on filedocumented in this encounter Care Teams Mixer Crane Operator Relationship Specialty Start Date End Date Reji Castro MD [address] [place] [id number] PCP - General Adolescent Medicine 10/02/22 documented as of this encounter
--- OUTSIDE RECORDS SUMMARY | 2025-05-07 13:06 | XMS_ITS | Encounter Summary ---
Author Organization [employer] Address [address] [place] [address] Care Team Providers Care Drawer In Hand Name Role Phone Reji Castro MD Primary Care Provider [phone] Encounter Details Date Type Department Care Team (Late st Contact Info) Description 08/27/2021 Transcribed Document [facility] [place] [address] [place] [address] ProviderDelvin MD [address] [place] [address] Social History Tobacco Use Types Packs/Day Years [...] On: 08/27/2021 14:36 EDT by SHAISTA WOLFF Lead Shop Operator Final Discharge Planning Discharge Arrangements : Patient [...] Services (Related/SOC within 3 days)-06 SHAISTA WOLFF Lead Shop Operator - 08/27/2021 14:36 EDT Final Narrative Note Final Narrative Note : Admission day 16, on room air to discharge home today, transport via s/o Jorge, who will assist with care. Home health for lab work and Port-a cath care via [employer] ([phone]/Radha Souza), IV Abx via [facility], they will deliver medication to patient's home this evening and patient was taught at bedside how to give herself the infusion, patient's follow up Coumadin Clinic (via [facility] [phone]/cBrett) appt set for 09/03/2021 at 0900. All other appointments in place via Virtual RN. Pt, RN aware and in agreement with plan. SHAISTA WOLFF Social Worker - 08/27/2021 14:36 EDT documented in this encounter Plan of Treatment Not on file documented as of this encounter Visit Diagnoses Not on filedocumented in this encounter Care Teams Drawer In Hand Relationship Specialty Start Date End Date Reji Castro MD [address] [place] [address] PCP - General Adolescent Medicine 10/02/22 documented as of this encounter
--- OUTSIDE RECORDS SUMMARY | 2025-05-07 13:06 | XMS_ITS | Encounter Summary ---
Author Organization [employer] Address [address] [place] [address] Care Team Providers Care Leaf Sorter Name Role Phone Reji Castro MD Primary Care Provider [phone] Encounter Details Date Type Department Care Team (Late st Contact Info) Description 08/24/2021 Transcribed Document [facility] [place] Family Medicine [address] [place] [address] ProviderDelvin MD [address] [place] [address] Social History Tobacco Use Types Packs/Day Years Used Date Smoking Tobacco: Never Assessed Comments Unknown Sex and Gender Information Value Date Recorded Sex Assigned at Not on file Legal Sex Female 4:32 PM CDT Gender Identity Not on file Sexual Orientation Not on file documented as of this encounter Miscellaneous Notes * Cerner Conversion Note - Delvin ProviderMD - 08/24/2021 2:00 AM CDT Manufacturing Associate Details Entered On: 08/24/2021 0:53 EDT Performed [...] on filedocumented in this encounter Care Teams Leaf Sorter Relationship Specialty Start Date End Date Reji Castro MD [address] [place] [address] PCP - General Adolescent Medicine 10/02/22 documented as of this encounter
--- OUTSIDE RECORDS SUMMARY | 2025-05-07 13:06 | XMS_ITS | Encounter Summary ---
Author Organization [employer] Address [address] [place] [address] Care Team Providers Care Sulphate Tester Name Role Phone Reji Castro MD Primary Care Provider [phone] Encounter Details Date Type Department Care Team (Late st Contact Info) Description 08/22/2021 Transcribed Document [facility] [place] Family Medicine [address] [place] [address] ProviderDelvin MD [facility] [place] [address] Social History Tobacco Use Types Packs/Day Years Used Date Smoking Tobacco: Never Assessed Comments Unknown Sex and Gender Information Value Date Recorded Sex Assigned at Not on file Legal Sex Female 4:32 PM CDT Gender Identity Not on file Sexual Orientation Not on file documented as of this encounter Miscellaneous Notes * Cerner Conversion Note - Historical ProviderMD - 08/22/2021 2:00 AM CDT Dozer Operator Details Entered On: 08/22/2021 4:12 EDT Performed On: 08/22/2021 2:00 EDT by Cady Moser RN Order Details Transport Mode Order Detail [...] on filedocumented in this encounter Care Teams Sulphate Tester Relationship Specialty Start Date End Date Reji Castro MD [address] [place] [address] PCP - General Adolescent Medicine 10/02/22 documented as of this encounter
--- OUTSIDE RECORDS SUMMARY | 2025-05-07 13:06 | XMS_ITS | Encounter Summary ---
Author Organization Healthcare Address [address] [place] [address] Care Team Providers Care Synthetic Filament Spinner Name Role Phone Anna Marie Savage MD Primary Care Provider [phone] Reji Castro MD Primary Care Provider [phone] Encounter Details Date Type Department Care Team (Late st Contact Info) Description 10/05/2022 Orders Only External Location [address] [place] [address] Provider, External Social History Tobacco Use Types [...] on filedocumented in this encounter Care Teams Synthetic Filament Spinner Relationship Specialty Start Date End Date Anna Marie Savage MD [address] [place] [id number] PCP - General 04/04/21 12/07/23 Reji Castro MD [address] [facility] [address] [place] [address] PCP - General Internal Medicine 12/08/23 documented as of this encounter
--- OUTSIDE RECORDS SUMMARY | 2025-05-07 13:06 | XMS_ITS | Encounter Summary ---
Author Organization [employer] Address [address] [place] [address] Care Team Providers Care Firer Automatic Stoker Name Role Phone Reji Castro MD Primary Care Provider [phone] Encounter Details Date Type Department Care Team (Late st Contact Info) Description 08/24/2021 Transcribed Document [facility] Family Medicine [address] [place] [address] ProviderDelvin MD [address] [place] [address] Social History Tobacco Use Types Packs/Day Years [...] Usha Adler RN - 08/24/2021 5:28 EDT Electronically signed by Lanny [facility] Conversion Manager Forensic Cerner at 03/09/2023 8:40 PM CDT documented in this encounter Plan of Treatment Not on file documented as of this encounter Visit Diagnoses Not on filedocumented in this encounter Care Teams Firer Automatic Stoker Relationship Specialty Start Date End Date Reji Castro MD [address] [place] [address] PCP - General Adolescent Medicine 10/02/22 documented as of this encounter
--- OUTSIDE RECORDS SUMMARY | 2025-05-07 13:06 | XMS_ITS | Encounter Summary ---
Author Organization [employer] Address [address] [place] [address] Care Team Providers Care Director Of Business Continuity Name Role Phone Reji Castro MD Primary Care Provider + [phone] Encounter Details Date Type Department Care Team (Late st Contact Info) Description 08/16/2021 Transcribed Document [facility] [place] [address] [place] [address] ProviderDelvin MD [address] [place] [address] Social History Tobacco Use Types Packs/Day Years [...] filedocumented in this encounter Care Teams Director Of Business Continuity Relationship Specialty Start Date End Date Reji Castro MD [address] [place] [address] PCP - General Adolescent Medicine 10/02/22 documented as of this encounter
--- OUTSIDE RECORDS SUMMARY | 2025-05-07 13:06 | XMS_ITS | Encounter Summary ---
Author Organization [employer] Address [address] [place] [address] Care Team Providers Care Adult Manager Name Role Phone Reji Castro MD Primary Care Provider [phone] Encounter Details Date Type Department Care Team (Late st Contact Info) Description 08/27/2021 Transcribed Document [facility] [place] Medicine [address] [place] [address] ProviderDelvin MD [address] [place] [address] Social History Tobacco Use Types Packs/Day Years [...] Pamela Miguel RN - 08/27/2021 3:29 EDT Electronically signed by Lanny [facility] Conversion Motor Runner Cerner at 03/09/2023 8:34 PM CDT documented in this encounter Plan of Treatment Not on file documented as of this encounter Visit Diagnoses Not on filedocumented in this encounter Care Teams Adult Manager Relationship Specialty Start Date End Date Reji Castro MD [address] [place] [address] PCP - General Adolescent Medicine 10/02/22 documented as of this encounter
--- OUTSIDE RECORDS SUMMARY | 2025-05-07 13:06 | XMS_ITS | Encounter Summary ---
Author Organization [employer] Address [address] [place] [address] Care Team Providers Care Shearer Screen Measurer And Trimmer Name Role Phone Reji Castro MD Primary Care Provider [phone] Encounter Details Date Type Department Care Team (Late st Contact Info) Description 08/22/2021 Transcribed Document [facility] [place] [address] [place] [address] ProviderDelvin MD [facility] [address] Social History Tobacco Use Types Packs/Day Years [...] Warfarin HPI: 56 y/o F presenting to [facility] with history of COPD, atrial fibrillation, CKD [...] cefTRIAXone: 2 Gram, 100 mL/Hr, IV Piggyback, [id number]. citalopram: 40 mg, Oral, Daily. diphenhydrAMINE: 25 [...] weekend. Thank you, Andrea Moraes, PharmD PGY1 Percussion Welding Machine Operator Pager: [phone], Ext. [phone] documented in this encounter Plan of Treatment Not on file documented as of this encounter Visit Diagnoses Not on filedocumented in this encounter Care Teams Shearer Screen Measurer And Trimmer Relationship Specialty Start Date End Date Reji Castro MD [address] [place] [address] PCP - General Adolescent Medicine 10/02/22 documented as of this encounter
--- OUTSIDE RECORDS SUMMARY | 2025-05-07 13:06 | XMS_ITS | Encounter Summary ---
Author Organization [employer] Address [address] [place] [address] Care Team Providers Care Underwriting Clerk Name Role Phone Reji Castro MD Primary Care Provider [phone] Encounter Details Date Type Department Care Team (Late st Contact Info) Description 08/27/2021 Transcribed Document [facility] [place] Medicine [facility] [place] [address] ProviderDelvin MD [address] [place] [address] Social History Tobacco Use Types Packs/Day Years [...] Warfarin HPI: 56 y/o F presenting to [facility] with history of COPD, atrial fibrillation, [...] 3). Daily INR Will followZeyad PharmD, BCPS [phone] documented in this encounter Plan of Treatment Not on file documented as of this encounter Visit Diagnoses Not on filedocumented in this encounter Care Teams Underwriting Clerk Relationship Specialty Start Date End Date Rjei Castro MD [address] [place] [address] PCP - General Adolescent Medicine 10/02/22 documented as of this encounter
--- OUTSIDE RECORDS SUMMARY | 2025-05-07 13:06 | XMS_ITS | Encounter Summary ---
Author Organization [employer] Address [address] [place] [address] Care Team Providers Care Dock Clerk Name Role Phone Reji Castro MD Primary Care Provider [phone] Encounter Details Date Type Department Care Team (Late st Contact Info) Description 08/22/2021 Transcribed Document [facility] [place] Family Medicine [address] [place] [address] ProviderDelvin MD [address] [place] [address] Social History Tobacco Use Types Packs/Day Years [...] 15:27 EDT by MADINA LOVETT, JEREMIAH - Control Systems EngDirector Of Dementia Operations Progress Note Discharge Arrangements : Patient Post-Acute [...] Rounds? : Yes MADINA LOVETT RN - Control Systems Eng - 08/22/2021 15:27 EDT Narrative Progress Note [...] also faxed order for home health to [facility] which the patient states she has used before. Patient will probably not be ready for discharge until early next week per MDR. DCP: home with home health MADINA LOVETT RN - Control Systems Eng - 08/21/21 15:11:24 RRS Low Boost 5 Day 07/30 Patient was admitted for staph infection and port removal. She had a new port placed on 08/19. Patient needs to remain inpatient until her coumadin is at a therapeutic level per at [facility]. Patient will need IV rocephin until 09/08. Patient will need home health and says she has used [facility] in the past. CM will refer her to them after final antibiotic order is placed. DCP: home with home health MADINA LOVETT RN - Control Systems Eng - 08/20/21 13:35:46 RRS Low Boost 5 [...] will need home health and lvies in [place]. [facility] is a possibility. MADINA LOVETT RN - Control Systems Eng - 08/19/21 15:40:22 RRS Low Boost 5 [...] will need home health and lives in [place]. [facility] home [facility] is a possibility. CM will continue to follow. DCP: MADINA LOVETT RN - Control Systems Eng - 08/18/21 15:47:49 (late entry from 08/15-) [...] and send referrals as appropriate. JULIO STEWART, JEREMIAH-Control Systems Eng ED - 08/18/21 10:38:39 MADINA LOVETT RN - Control Systems Eng - 08/22/2021 15:27 EDT documented in this encounter Plan of Treatment Not on file documented as of this encounter Visit Diagnoses Not on filedocumented in this encounter Care Teams Dock Clerk Relationship Specialty Start Date End Date Reji Castro MD [address] [place] [address] PCP - General Adolescent Medicine 10/02/22 documented as of this encounter
--- OUTSIDE RECORDS SUMMARY | 2025-05-07 13:06 | XMS_ITS | Encounter Summary ---
Author Organization [employer] Address [address] [place] [address] Care Team Providers Care Sales Branch Manager Name Role Phone Reji Castro MD Primary Care Provider [phone] Encounter Details Date Type Department Care Team (Late st Contact Info) Description 10/02/2022 Outside Orders [facility] Central Scheduling [address] [place] [address] Marion Umana MD [address] [facility] [address] [place], [place] [id number] Stage 3 chronic kidney disease, unspecified whether [...] Primary documented in this encounter Care Teams Sales Branch Manager Relationship Specialty Start Date End Date Reji Castro MD [address] [place] [address] PCP - General Adolescent Medicine 10/02/22 documented as of this encounter
--- OUTSIDE RECORDS SUMMARY | 2025-05-07 13:06 | XMS_ITS | Clinical Summary ---
Author Organization [facility] Address [address] [place] [address] Care Team Providers Care Transplant Case Manager Name Role Phone Reji Castro MD [...] (one) time each day. Active Continuous Glucose Car Rental Deliverer (FreeStyle Gerson 14 Day Lolita) device use as directed 4 Active Continuous [...] mellitus 07/06/2016 Overview (12/18/2024): From Automated Load;Provider: Bud Rendon;Status: Active Thyroiditis 12/31/2015 06/18/2023 Immunizations Immunization [...] place to sleep or slept in a chcf (including now)? No 11/19/2023 Utilities Answer Date Recorded In the past 12 months has [employer], gas, oil, or water company threatened to [...] Health Maintenance Due Date Last Done Comments [facility]-Medicare Annual Wellness (AWV) 1965 [facility]-/Child/Adol SDOH Screenings 1963 Diabetes: Dental Exam 1973 [facility]- SDOH Screenings 1981 [facility]-Adult SDOH Screenings 1981 [facility]-Hepatitis A Vaccines (1 of 2 - Risk 2-dose series) 1982 [facility]-Pap Smear 1984 [facility]-Cervical Cancer Screening 1993 [facility]-HPV/Cotest 1993 [facility]-Breast Cancer Screening 2013 [facility]-Zoster Vaccines (1 of 2) 2013 [facility]-IZIFO-30 Vaccine (3 - Moderna risk series) 03/24/2021 02/24/2021, 01/27/2021 [facility]-Diabetes: Hemoglobin A1C 02/19/2024 11/20/2023 [facility]-Depression Screening 12/07/2024 12/07/2023 [facility]-DTaP,Tdap,and Td Vaccines [...] HIV 1/2 Differentiation (12/15/2024 8:10 PM EST) HIV 1 & 2 Antibody/Antigen Screen Non Reactive Non Reactive 12/15/2024 9:33 PM EST [facility] Comment:Screening for HIV 1 & 2 antibodies, and P24 antigen is NONREACTIVE. No confirmatory testing is required. Blood Venous blood specimen / Unknown Venipuncture / Unknown 12/15/2024 8:10 PM EST 12/15/2024 8:52 PM EST Elijah Negron MD LAB BLOOD ORDERABLES Final Result Performing Organization Address City/[facility]/ZIP Co de Phone Number [facility] [address] [place] [address] * Hepatitis C Antibody - ED (12/15/2024 8:10 PM EST) Hepatitis C Antibody Negative Negative 12/15/2024 9:33 PM EST [facility] Blood Venous blood specimen / Unknown Venipuncture / Unknown 12/15/2024 8:10 PM EST 12/15/2024 8:52 PM EST Elijah Negron MD LAB BLOOD ORDERABLES Final Result Performing Organization Address City/[facility] de Phone Number [facility] [address] [place] [address] * (ABNORMAL) Hemoglobin A1c (11/20/2023 2:15 AM EST) Pathologist [facility] Hemoglobin A1c 7.1(H) <5.7 % 11/20/2023 4:00 AM EST [facility] Blood Venous blood specimen / Unknown [...] Adults <6.0% Children and Adolescents <7.5% Source: [place] [employer]. Standards of medical care in diabetes,2017. Diabetes Care.2017:40 (suppl 1):S1-S135. HbA1c assay performed by an ion-exchange chromatography method that is certified traceable to the DCCT. us Alannah Conti DIAGNOSTICS TECH LAB BLOOD ORDERABLES Final Re sult [facility] [address] [place] [address] from Last 3 Months or Most Recently Relevant to Health Maintenance Insurance [facility] MEDIC[facility] Advance Directives * Full Code (Latest Code Status on File) Date Activated Date Inactivated Comments 11/18/2023 5:56 PM 11/24/2023 4:04 PM Question Answer Comments Patient has decision-making capacity? Yes Care Teams Transplant Case Manager Relationship Specialty Start Date End Date Reji Castro MD [address] [place] [address] [place] [address] PCP - General Internal Medicine 12/08/23
--- OUTSIDE RECORDS SUMMARY | 2025-05-07 13:06 | XMS_ITS | Encounter Summary ---
Author Organization [employer] Address [address] [place] [address] Care Team Providers Care Monotypist Name Role Phone Reji Castro MD Primary Care Provider [phone] Encounter Details Date Type Department Care Team (Late st Contact Info) Description 08/21/2021 Transcribed Document [facility] [place] [facility] [place] [address] ProviderDelvin MD [facility] [place] [address] Social History Tobacco Use Types Packs/Day Years [...] Warfarin HPI: 56 y/o F presenting to [facility] with history of COPD, atrial fibrillation, CKD [...] cefTRIAXone: 2 Gram, 100 mL/Hr, IV Piggyback, [id number]. citalopram: 40 mg, Oral, Daily. diphenhydrAMINE: 50 [...] questions. Thank you, Andrea Moraes, PharmD PGY1 Cutter Hand Pager: [phone], Ext. [phone] Electronically signed by Lanny [facility] Conversion Door Cutter Cerner at 03/09/2023 8:45 PM CDT documented in this encounter Plan of Treatment Not on file documented as of this encounter Visit Diagnoses Not on filedocumented in this encounter Care Teams Monotypist Relationship Specialty Start Date End Date Reji Castro MD [address] [place] [address] PCP - General Adolescent Medicine 10/02/22 documented as of this encounter
--- OUTSIDE RECORDS SUMMARY | 2025-05-07 13:06 | XMS_ITS | Encounter Summary ---
Author Organization [employer] Address [address] [place] [address] Care Team Providers Care Ballroom Dance Instructor Name Role Phone Reji Castro MD Primary Care Provider [phone] Encounter Details Date Type Department Care Team (Late st Contact Info) Description 08/27/2021 Transcribed Document [facility] [place] [address] [place] [address] ProviderDelvin MD [address] [place] [address] Social History Tobacco Use Types Packs/Day Years [...] On: 08/27/2021 10:31 EDT by Sallie Solorzano [email or web address] Stroke/Warfarin Instructions Stroke/TIA Discharge Ins : N/A Sallie Solorzano [email or web address] - 08/27/2021 10:34 EDT Warfarin Discharge Ins : Open Sallie Solorzano [email or web address] - 08/27/2021 10:31 EDT Warfarin Discharge Instructions Physician to Manage Warfarin : Sallie Tavarez [email or web address] - 08/27/2021 10:34 EDT Indication for Warfarin Anticoagulation : Atrial fibrillation Warfarin Anticoagulation Disposition : Continuation of pre-hospital treatment Duration Warfarin Therapy, Long-Term Duration Warfarin Therapy, Long-Term : Yes Target INR : 2.5 - 3.5 Last INR Result : INR: 1.3 (High), Reference Range: (0.9 - 1.2), 08/20/2021 7:38 AM Notify Provider of Signs/Symptoms of : Significant bleeding, Clot Warfarin Dose/Frequency : 6 mg daily Sallie Solorzano [id number] - 08/27/2021 10:31 EDT Education Topics: Anticoagulant [...] : Tod Sawyer to manage Sallie Solorzano [id number] - 08/27/2021 10:34 EDT documented in this encounter Plan of Treatment Not on file documented as of this encounter Visit Diagnoses Not on filedocumented in this encounter Care Teams Ballroom Dance Instructor Relationship Specialty Start Date End Date Reji Castro MD [address] [place] [address] PCP - General Adolescent Medicine 10/02/22 documented as of this encounter
--- OUTSIDE RECORDS SUMMARY | 2025-05-07 13:06 | XMS_ITS | Encounter Summary ---
Author Organization [employer] Address [address] [place] [address] Care Team Providers Care Auxiliary Equipment Tender Name Role Phone Reji Castro MD Primary Care Provider [phone] Encounter Details Date Type Department Care Team (Late st Contact Info) Description 08/11/2021 Transcribed Document [facility] [place] [address] [place] [address] ProviderDelvin MD [address] [place] [address] Social History Tobacco Use Types Packs/Day Years Used Date Smoking Tobacco: Never Assessed Comments Unknown Sex and Gender Information Value Date Recorded Sex Assigned at Not on file Legal Sex Female 4:32 PM CDT Gender Identity Not on file Sexual Orientation Not on file documented as of this encounter Miscellaneous Notes * Cerner Conversion Note - Delvin ProviderMD - 08/11/2021 4:16 PM CDT [place] Suicide Severity Rating Scale (C-SSRS) Entered On: 08/11/2021 18:49 EDT Performed On: 08/11/2021 18:46 EDT by MARIPOSA JACQUES RN [place] Suicide Severity Rating Scale (C-SSRS) CSSRS Past [...] on filedocumented in this encounter Care Teams Auxiliary Equipment Tender Relationship Specialty Start Date End Date Reji Castro MD [address] [place] [address] PCP - General Adolescent Medicine 10/02/22 documented as of this encounter
--- OUTSIDE RECORDS SUMMARY | 2025-05-07 13:06 | XMS_ITS | Encounter Summary ---
Author Organization [facility] Address [address] [place] [address] Care Team Providers Care Primer Charger Name Role Phone Anna Marie Savage MD Primary Care Provider [phone] Reji Castro MD Primary Care Provider [phone] Encounter Details Date Type Department Care Team (Late st Contact Info) Description 07/09/2023 Orders Only External Location [address] [place] [address] Karen Benson MD [address] [place] [address] Social History Tobacco Use Types Packs/Day Years [...] documented as of this encounter Care Teams Primer Charger Relationship Specialty Start Date End Date Anna Marie Savage MD [address] [place], [place] [id number] PCP - General 04/04/21 12/07/23 Reji Castro MD [address] [place] [address] [address] [place] [address] PCP - General Internal Medicine 12/08/23 documented as of this encounter
--- OUTSIDE RECORDS SUMMARY | 2025-05-07 13:06 | XMS_ITS | Encounter Summary ---
Author Organization [employer] Address [address] [place] [address] Care Team Providers Care Website/Blog Editor Name Role Phone Reji Castro MD Primary Care Provider [phone] Encounter Details Date Type Department Care Team (Late st Contact Info) Description 08/11/2021 Transcribed Document [facility] [place] [address] [place] [address] ProviderDelvin MD [address] [place] [address] Social History Tobacco Use Types Packs/Day Years [...] 08/12/2021 9:31 EDT Electronically signed by Lanny [facility] Conversion Media Relations Specialist Cerner at 03/09/2023 9:00 PM CDT documented in this encounter Plan of Treatment Not on file documented as of this encounter Visit Diagnoses Not on filedocumented in this encounter Care Teams Website/Blog Editor Relationship Specialty Start Date End Date Reji Castro MD [address] [place] [address] PCP - General Adolescent Medicine 10/02/22 documented as of this encounter
--- OUTSIDE RECORDS SUMMARY | 2025-05-07 13:06 | XMS_ITS | Clinical Summary ---
Author Organization [employer] Address [address] [place] [address] Care Team Providers Care Recreation Programmer Name Role Phone Reji Castro MD Primary Care Provider [phone] Allergies Active Allergy Reactions Criticality Noted Date [...] Date Yash rded Speak language other than Zimbabwean at home Not on file 12/10/2023 Want [...] 75+ series) [address] [place] [address] Advance Directives For more information, please contact: [phone] Documents on File Type Date Recorded Patient Grading Supervisor Expl anation Advance Directives and Gato g Will 10/05/2022 8:36 AM Care Teams Recreation Programmer Relationship Specialty Start Date End Date Reji Castro MD [address] [place] [address] PCP - General Adolescent Medicine 10/02/22
--- OUTSIDE RECORDS SUMMARY | 2025-05-07 13:06 | XMS_ITS | Encounter Summary ---
Author Organization [employer] Address [address] [place] [address] Care Team Providers Care Employee Communications Coordinator Name Role Phone Reji Castro MD Primary Care Provider + [phone] Encounter Details Date Type Department Care Team (Late st Contact Info) Description 08/12/2021 Transcribed Document [facility] Family Medicine [address] [place] [address] ProviderDelvin MD [address] [place] [address] Social History Tobacco Use Types Packs/Day Years [...] Author: CHELI BEASLEY MD-CAR Basic Information Primary Audio Specialist: Dr. Delmar Geronimo Diet Kitchen Cook: MD Nestor Chief Complaint Rule out endocarditis/h.o [...] She followed up that week with her Vice President Industrial Relations, Dr. Thapa, who aspirated purulence from the [...] ID evaluation. She presented for evaluation at [facility]. In the ER she was found to [...] Instructions Problem list: All Problems Amblyopia / [id number] / Confirmed Arthritis / 9900254 / Confirmed Atrial fibrillation / 54873570 / Confirmed AIHA (autoimmune hemolytic anemia) / 4714978498 / Confirmed Back pain / [id number] / Confirmed Bowel obstruction / 065438602 / Confirmed Bronchitis / 32068655 / Confirmed Cardiac arrhythmia / 8188626861 / Confirmed Cardiomyopathy / 708134155 / Confirmed COPD / 23578418 / Confirmed Diabetes mellitus / 573306437 / Confirmed Diabetes mellitus type II / 31801430 / Confirmed Diverticulosis / 1151634803 / Confirmed Edema / 099713940 / Confirmed Fibromyalgia / 83183532 / Confirmed frequent headache / Confirmed GERD - Gastro-esophageal reflux disease / 5924727452 / Confirmed Heart failure / 284786296 / Confirmed Heart valve / 012026390 / Confirmed Hepatomegaly / 460907927 / Confirmed High blood pressure / 20342124 / Confirmed History of obstructive sleep apnea / 77839496 / Confirmed Hyperlipidemia / 89050962 / Confirmed Anemia, iron deficiency / 006851380 / Confirmed Lazy eye / 823282074 / Confirmed Myocardial infarction / 58465932 / Confirmed neuropathy hands and feet / Confirmed Ovarian cyst / 206325400 / Confirmed Renal calculus / 809975809 / Confirmed Restless legs syndrome / 80442121 / Confirmed Thyroid disease / 088169545 / Confirmed Histories No education data available. Social & Psychosocial Habits Tobacco 12/18/2013 Tobacco Use Within Last Twelve Months No Smoking Status Former smoker Years of Tobacco Use 30 Month Tobacco Last Used quit 2005 Past Medical History: Active Atrial fibrillation (03368945) Bioprosthetic mitral valve replacement (928889449) Chronic kidney disease (5012914610) COPD - Chronic obstructive pulmonary disease (741743665) HLD - Hyperlipidemia (717837920) HTN - Hypertension (3939934487) Family History: Reviewed. Non-contributory. Procedure history: Replacement, mitral valve, with cardiopulmonary bypass (31271) on 01/19/2006 at 40 Years. left jaw pin. sternotomy. hernia repair, abdominal. sigmoid colon resection. Tendon sheath incision (eg, for trigger finger) (59567). jaw surgery, left. great toe surger, left. [...] of motion, Normal strength. Integumentary: Warm, Dry, [place]. Neurologic: Alert, Oriented. Psychiatric: Cooperative, Appropriate mood & affect. Review / Management AUG 12 00:22 L 134 L 98 H 69 / H 134 3.6 29 H 2.40 \ AUG 12 00:22 \ L 8.7 / 6.7 201 / L 28.3 \ Cardiac Markers (Current Encounter/Past 24 Hours) ProBNP 766 pg/mL [place] 08/12/2021 01:12 Blood Gases (Current Encounter/Past 24 Hours) No Blood Gas Results Found (Past 24 Hours) Radiology Results (Last 48 hours) [id number] -- 08/11/2021 21:21 CR Chest 1 Vw [...] admission for coagulase negative staph bacteremia Admitted [facility] 07/12, Negative CHUCHO, TTE for vegetation [...] mechanical causes of hemolysis. Obtain records from [facility]. Check haptoglobin, LDH, reticulocyte count. Continue other current CV meds. documented in this encounter Plan of Treatment Not on file documented as of this encounter Visit Diagnoses Not on filedocumented in this encounter Care Teams Employee Communications Coordinator Relationship Specialty Start Date End Date Reji Castro MD [address] [place] [id number] PCP - General Adolescent Medicine 10/02/22 documented as of this encounter
--- OUTSIDE RECORDS SUMMARY | 2025-05-07 13:06 | XMS_ITS | Encounter Summary ---
Author Organization [employer] Address [address] [place] [address] Care Team Providers Care Finishing Wire Sawyer Name Role Phone Reji Castro MD Primary Care Provider + [phone] Encounter Details Date Type Department Care Team (Late st Contact Info) Description 08/21/2021 Transcribed Document [facility] [place] [facility] [place] [address] ProviderDelvin MD [facility] [place] [address] Social History Tobacco Use Types Packs/Day Years [...] her port could not be accessed. Her telephone quotation clerk aspirated fluid from the port that was evidently purulent. I have not yet been able to track down that culture. After the aspiration she developed fever to 103, severe CHEUNG, myalgias and arthralgias. She was admitted to [facility]. She was in the hospital for 10 [...] subsequently contacted and told to report to [facility] because she had + blood cutures concerning for an infected portacath +/- PVE. 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 Integumentary: Warm, [place]. Neurologic: Alert, Oriented, No focal deficits. Psychiatric: [...] after surgery Discussed at length with patient documented in this encounter Plan of Treatment Not on file documented as of this encounter Visit Diagnoses Not on filedocumented in this encounter Care Teams Finishing Wire Sawyer Relationship Specialty Start Date End Date Reji Castro MD [address] [place] [id number] PCP - General Adolescent Medicine 10/02/22 documented as of this encounter
--- OUTSIDE RECORDS SUMMARY | 2025-05-07 13:06 | XMS_ITS | Encounter Summary ---
Author Organization [employer] Address [address] [place] [address] Care Team Providers Care Air Traffic Control Operator Name Role Phone Reji Castro MD Primary Care Provider [phone] Encounter Details Date Type Department Care Team (Late st Contact Info) Description 08/12/2021 Transcribed Document [facility] [place] Family Medicine [address] [place] [address] ProviderDelvin MD [address] [place] [address] Social History Tobacco Use Types Packs/Day Years [...] filedocumented in this encounter Care Teams Air Traffic Control Operator Relationship Specialty Start Date End Date Reji Castro MD [address] [place] [address] PCP - General Adolescent Medicine 10/02/22 documented as of this encounter
--- OUTSIDE RECORDS SUMMARY | 2025-05-07 13:06 | XMS_ITS | Encounter Summary ---
Author Organization [employer] Address [address] [place] [address] Care Team Providers Care Biofuels Production Technician Name Role Phone Reji Castro MD Primary Care Provider [phone] Encounter Details Date Type Department Care Team (Late st Contact Info) Description 08/15/2021 Transcribed Document [facility] [place] [address] [place] [address] ProviderDelvin MD [address] [place] [address] Social History Tobacco Use Types Packs/Day Years [...] on filedocumented in this encounter Care Teams Biofuels Production Technician Relationship Specialty Start Date End Date Reji Castro MD [address] [place] [address] PCP - General Adolescent Medicine 10/02/22 documented as of this encounter
--- OUTSIDE RECORDS SUMMARY | 2025-05-07 13:06 | XMS_ITS | Encounter Summary ---
Author Organization [employer] Address [address] [place] [address] Care Team Providers Care Pants Closer Name Role Phone Reji Castro MD Primary Care Provider [phone] Reason for Referral * Nuclear Medicine (Routine) - Closed Specialty Diagnoses / Procedures Referred By Contac t Referred To Contact Diagnoses Stage 3 chronic kidney disease, unspecified whether stage 3a or 3b CKD (HCC) Procedures NM parathyroid scan planar only Marion Umana MD Phone: tel: fax: Referral ID Status Reason Start Date Expiration Date Visits Re quested Visits Authorized [id number] Closed 10/02/2022 03/31/2023 1 1 Encounter Details Date Type Department Care Team (Late st Contact Info) Description 10/02/2022 Outside Orders [facility] Central Scheduling [address] [place] [address] Marion Umana MD [address] [facility] [address] [place] [address] Stage 3 chronic kidney disease, unspecified whether [...] (HCC) documented in this encounter Care Teams Pants Closer Relationship Specialty Start Date End Date Reji Castro MD [address] [place] [id number] PCP - General Adolescent Medicine 10/02/22 documented as of this encounter
--- OUTSIDE RECORDS SUMMARY | 2025-05-07 13:06 | XMS_ITS | Encounter Summary ---
Author Organization [employer] Address [address] [place] [address] Care Team Providers Care Grant Specialist Name Role Phone Reji Castro MD Primary Care Provider [phone] Encounter Details Date Type Department Care Team (Late st Contact Info) Description 08/22/2021 Transcribed Document [facility] Family Medicine [address] [place], [place] [id number] ProviderDelvin MD [address] [place] [address] Social History Tobacco Use Types Packs/Day Years [...] 08/22/2021 8:20 EDT by Lamar Sheppard Diet Guide Domestic Tour Nutrition Assessment Nutrition Assessment Reason : Other: Lamar Gay Diet Guide Domestic Tour - 08/22/2021 8:20 EDT Nutrition Recommendations Dietitian [...] reported. No nutrition dx at this time. ip technology transactions attorney to rescreen in 7-10 days. Lamar Sheppard, Diet Guide Domestic Tour - 08/22/2021 12:04 EDT Electronically signed by [facility] Conversion Metal Drill Operator Cerner at 03/09/2023 8:41 PM CDT documented in this encounter Plan of Treatment Not on file documented as of this encounter Visit Diagnoses Not on filedocumented in this encounter Care Teams Grant Specialist Relationship Specialty Start Date End Date Reji Castro MD [address] [place] [address] PCP - General Adolescent Medicine 10/02/22 documented as of this encounter
--- OUTSIDE RECORDS SUMMARY | 2025-05-07 13:06 | XMS_ITS | Encounter Summary ---
Author Organization [employer] Address [address] [place] [address] Care Team Providers Care Knockout Machine Operator Name Role Phone Reji Castro MD Primary Care Provider + [phone] Encounter Details Date Type Department Care Team (Late st Contact Info) Description 08/27/2021 Transcribed Document [facility] [place] [address] [place] [address] ProviderDelvin MD [address] [place] [address] Social History Tobacco Use Types Packs/Day Years [...] 10:18 AM CDT Reji Castro MD [address] [facility] [address] [place] [address] Re: IRINA RONI Date of Visit: 08/11/2021 [...] contents is strictly prohibited. Sincerely, FAIZA YOUSSEF [address] [place] [address] [address] [place] [address] The following document(s) were included in the letter: August 27, 2021 10:05:19 EDT - (08/27/2021) Discharge Note documented in this encounter Plan of Treatment Not on file documented as of this encounter Visit Diagnoses Not on filedocumented in this encounter Care Teams Knockout Machine Operator Relationship Specialty Start Date End Date Reji Castro MD [address] [place] [id number] PCP - General Adolescent Medicine 10/02/22 documented as of this encounter
--- OUTSIDE RECORDS SUMMARY | 2025-05-07 13:06 | XMS_ITS | Encounter Summary ---
Author Organization [employer] Address [address] [place] [address] Care Team Providers Care Supervisor Mold Cleaning And Storage Name Role Phone Reji Castro MD Primary Care Provider [phone] Encounter Details Date Type Department Care Team (Late st Contact Info) Description 08/11/2021 Transcribed Document [facility] [place] [facility] [address] ProviderDelvin MD [address] [place] [address] Social History Tobacco Use Types Packs/Day Years [...] you, Noy Garrett, PharmD PGY-1 Resident Pager #[phone] documented in this encounter Plan of Treatment Not on file documented as of this encounter Visit Diagnoses Not on filedocumented in this encounter Care Teams Supervisor Mold Cleaning And Storage Relationship Specialty Start Date End Date Reji Castro MD [address] [place] [address] PCP - General Adolescent Medicine 10/02/22 documented as of this encounter
--- OUTSIDE RECORDS SUMMARY | 2025-05-07 13:06 | XMS_ITS | Encounter Summary ---
Author Organization [employer] Address [address] [place] [address] Care Team Providers Care Production Support Supervisor Name Role Phone Reji Castro MD Primary Care Provider [phone] Encounter Details Date Type Department Care Team (Late st Contact Info) Description 08/15/2021 Transcribed Document [facility] [place] Family Medicine [facility] [place] [address] ProviderDelvin MD [facility] [place], [place] [address] Social History Tobacco Use Types Packs/Day Years Used Date Smoking Tobacco: Never Assessed Comments Unknown Sex and Gender Information Value Date Recorded Sex Assigned at Not on file Legal Sex Female 4:32 PM CDT Gender Identity Not on file Sexual Orientation Not on file documented as of this encounter Miscellaneous Notes * Cerner Conversion Note - Delvin ProviderMD - 08/15/2021 2:00 AM CDT Case Management Associate Details Entered On: 08/15/2021 1:25 EDT Performed [...] filedocumented in this encounter Care Teams Production Support Supervisor Relationship Specialty Start Date End Date Reji Castro MD [address] [place] [id number] PCP - General Adolescent Medicine 10/02/22 documented as of this encounter
--- OUTSIDE RECORDS SUMMARY | 2025-05-07 13:06 | XMS_ITS | Encounter Summary ---
Author Organization [employer] Address [address] [place] [address] Care Team Providers Care Wool Batting Worker Name Role Phone Reji Castro MD Primary Care Provider [phone] Encounter Details Date Type Department Care Team (Late st Contact Info) Description 08/21/2021 Transcribed Document [facility] [place] [place] [facility] [place] [address] ProviderDelvin MD [address] [place] [address] Social History Tobacco Use Types Packs/Day Years [...] 15:08 EDT by MADINA LOVETT, JEREMIAH - Strategic ConsultantKosher Sealer Progress Note Discharge Arrangements : Patient Post-Acute [...] Rounds? : Yes MADINA LOVETT RN - Strategic Consultant - 08/21/2021 15:08 EDT Narrative Progress Note Narrative Progress Note : RRS Low Boost 5 Day 08/29 Patient was admitted for staph infection and port removal. She had a new port placed on 08/19. Patient needs to remain inpatient until her coumadin is at therapeutic level per MD in [facility]. Patient will need IV rocephin until 09/08. CM faxed the order to Urszula with [facility]. CM also faxed order for home health to [facility] which the patient states she has used [...] is at a therapeutic level per at [facility]. Patient will need IV rocephin until 09/08. Patient will need home health and says she has used [facility] in the past. CM will refer her to them after final antibiotic order is placed. DCP: home with home health MADINA LOVETT RN - Strategic Consultant - 08/20/21 13:35:46 RRS Low Boost 5 Day 05/26 Patient was admitted for staph infection and port removal. She had a new port done on . 08/19. Patient needs to remain inpatient after surgery until her coumadin is at a therapeutic level per at [facility]. Waiting on culture results for final abx plan. May need IV abx at home via port. Patient will need home health and lvies in [place]. [facility] home [facility] is a possibility. MADINA LOVETT RN - Strategic Consultant - 08/19/21 15:40:22 RRS Low Boost 5 [...] will need home health and lives in [place]. [facility] home [facility] is a possibility. CM will continue to follow. DCP: MADINA LOVETT, RN - Strategic Consultant - 08/18/21 15:47:49 (late entry from 08/15-) [...] and send referrals as appropriate. JULIO STEWART, RN-Strategic Consultant ED - 08/18/21 10:38:39 MADINA LOVETT, JEREMIAH - Strategic Consultant - 08/21/2021 15:08 EDT documented in this encounter Plan of Treatment Not on file documented as of this encounter Visit Diagnoses Not on filedocumented in this encounter Care Teams Wool Batting Worker Relationship Specialty Start Date End Date Reji Castro MD [address] [place] [id number] PCP - General Adolescent Medicine 10/02/22 documented as of this encounter
--- OUTSIDE RECORDS SUMMARY | 2025-05-07 13:06 | XMS_ITS | Encounter Summary ---
Author Organization [employer] Address [address] [place] [address] Care Team Providers Care Public Records Researcher Name Role Phone Reji Castro MD Primary Care Provider + [phone] Encounter Details Date Type Department Care Team (Late st Contact Info) Description 08/27/2021 Transcribed Document [facility] Family Medicine [address] [place] [address] ProviderDelvin MD [address] [place] [address] Social History Tobacco Use Types Packs/Day Years [...] implanted port has two main parts: ??? [place]. The reservoir is the part where a [...] water are not available, use alcohol-based hand geologist. ? Change your dressing as told by [...] provider. Document Revised: 03/01/2020 Document Reviewed: 12/11/2017 [employer] ([employer] Patient Education ? 2020 depict. Cardiovascular Atrial Fibrillation Atrial fibrillation is a [...] signals of the heart. ??? An ambulatory cardiac technologist to record your heart's activity for a [...] provider. Document Revised: 05/01/2020 Document Reviewed: 05/01/2020 [employer] ([employer]) Patient Education ? 2020 depict. Caregiving Implanted Port Home Guide An implanted [...] implanted port has two main parts: ??? [place]. The reservoir is the part where a [...] water are not available, use alcohol-based hand geologist. ? Change your dressing as told by [...] provider. Document Revised: 03/01/2020 Document Reviewed: 12/11/2017 [employer] Patient Education ? 2020 [employer] (powering [employer] Inc. Endocrinology Diabetes Mellitus and Nutrition, Adult [...] Berries. Apples. Oranges. Peaches. Apricots. Plums. Grapes. [place]. Papaya. Pomegranate. Kiwi. Cherries. Vegetables Lettuce. Spinach. Leafy greens, including kale, chard, yanira greens, and mustard greens. Beets. Cauliflower. Cabbage. Broccoli. Carrots. Green beans. Tomatoes. Peppers. Onions. Cucumbers. [place] sprouts. Grains Whole grains, such as whole-wheat [...] Do I need to meet with a museum educator? Do I need to meet with a dietitian? What number can I call if I have questions? When are the best times to check my blood glucose? Where to find more information: ??? [place] Diabetes Association: diabetes.org ??? Academy of Nutrition and Dietetics: www.eatright.org ??? National [place] of Diabetes and Digestive and Kidney Diseases: [...] provider. Document Revised: 10/15/2020 Document Reviewed: 10/15/2020 [employer] Patient Education ? 2020 [employer] ([employer]ing [employer] Hematology Warfarin Coagulopathy Warfarin coagulopathy refers [...] stopping any new medicines. Many prescription and hnzh-udk-juzkaeg medicines can interfere with warfarin. This includes lxjf-blj-tqfinhe vitamins, dietary supplements, herbal medicines, and pain [...] that you work with a diet and food and nutrition teacher (dietitian). ??? Vitamin K makes warfarin less [...] Preventing bleeding and injury ??? Some common kxue-ndb-utlafrn medicines and supplements may increase the risk [...] diet. ??? You start or stop any akjv-goa-regkdty medicine, prescription medicine, or dietary supplement. ??? [...] provider. Document Revised: 10/21/2018 Document Reviewed: 01/26/2018 [employer] ([employer]) Patient Education ? 2020 [employer] ([employer] Infectious Disease Bacteremia, Adult Bacteremia is [...] these instructions at home: Medicines ??? Take hpxu-zls-sblifsp and prescription medicines only as told by [...] and water are not available, use hand geologist. ??? You should wash your hands: ? [...] care provider. ??? Practice good oral hygiene. Humble your teeth two times a day, and [...] provider. Document Revised: 03/29/2020 Document Reviewed: 03/29/2020 [employer] ([employer]) Patient Education ? 2020 depict. Nephrology Acute Kidney Injury, Adult Acute kidney [...] and blood vessel (cardiovascular) disease. ? Severe sanatna. ? Liver disease. ??? Direct damage to [...] these instructions at home: Medicines ??? Take lpap-aea-kvuamck and prescription medicines only as told by [...] important. Where to find more information ??? [place] Association of Kidney Patients: www.aakp.org ??? National Kidney Foundation: www.kidney.org ??? [place] Kidney Fund: www.akfinc.org ??? [employer] Rehabilitation [...] provider. Document Revised: 09/17/2020 Document Reviewed: 09/17/2020 [employer] ([employer]ing [employer]) Patient Education ? 2020 depict. Chronic Kidney Disease, Adult Chronic kidney disease [...] these instructions at home: Medicines ??? Take zvwm-foc-mkhxbza and prescription medicines only as told by [...] provider. Document Revised: 10/21/2018 Document Reviewed: 12/13/2017 [employer] (powering [employer]) Patient Education ? 2020 depict. Pharmacology Vitamin K Foods and Warfarin Warfarin [...] before making changes. ??? Work with a food and nutrition teacher (dietitian) to develop a meal plan that works best for you. What foods are high in vitamin K? Foods that are high in vitamin K contain more than 100 mcg (micrograms) per serving. These include: ??? Broccoli (cooked from fresh) ? ? cup (78 g) has 110 mcg. ??? [place] sprouts (cooked from fresh) ? ? cup [...] cup (90 g) has 444 mcg. ??? Rwandan chard (cooked from fresh) ? ? cup [...] cup (54 g) has 8 mcg. ??? Brent with peel (raw) ? ? cup (52 g) has 9 mcg. ??? Grapes ? ? cup (76 g) has 12 mcg. ??? [place] ? 1 medium (207 g) has 9 [...] provider. Document Revised: 08/27/2020 Document Reviewed: 08/27/2020 [employer] (powering [employer]) Patient Education ? 2020 [employer] (powering [employer] Inc. Aspirin and Your Heart Aspirin is [...] The two forms of aspirin are: ? Llv-zmnbuca-srfldr.This type of aspirin does not have a coating and is absorbed quickly. This type of aspirin also comes in a chewable form. ? Enteric-coated. This type of aspirin has a coating that releases the medicine very slowly. Enteric-coated aspirin might cause less stomach upset than geq-qdhscem-kieivp aspirin. This type of aspirin should not [...] these instructions at home Medicines ??? Take ywjc-uvr-xgmmmrv and prescription medicines only as told by [...] Where to find more information ??? The [place] Heart Association: www.heart.org Contact a health care [...] on filedocumented in this encounter Care Teams Public Records Researcher Relationship Specialty Start Date End Date Reji Castro MD [address] [place] [id number] PCP - General Adolescent Medicine 10/02/22 documented as of this encounter
--- OUTSIDE RECORDS SUMMARY | 2025-05-07 13:06 | XMS_ITS | Encounter Summary ---
Author Organization [employer] Address [address] [place] [address] Care Team Providers Care Umbrella Tipper Hand Name Role Phone Reji Castro MD Primary Care Provider + [phone] Encounter Details Date Type Department Care Team (Late st Contact Info) Description 08/21/2021 Transcribed Document [facility] [place] [facility] [place] [address] ProviderDelvin MD [address] [place] [address] Social History Tobacco Use Types Packs/Day Years [...] cefTRIAXone: 2 Gram, 100 mL/Hr, IV Piggyback, [id number] diphenhydrAMINE: 25 mg, Oral, Q6H, PRN: Itching [...] Oral, BID cefTRIAXone 2 Gram, IV Piggyback, [id number] citalopram 20 mg tab 40 mg 2 [...] History of obstructive sleep apnea / IMO 29741381 / Confirmed Bioprosthetic mitral valve replacement / SNOMED CT 387055170 / Confirmed Chronic kidney disease / SNOMED CT 3237182386 / Confirmed COPD - Chronic obstructive pulmonary disease / SNOMED CT 829003265 / Confirmed HTN - Hypertension / SNOMED CT 0173941646 / Confirmed HLD - Hyperlipidemia / SNOMED CT 042640870 / Confirmed Amblyopia / SNOMED CT 1636651152 / Confirmed 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 / SNOMED CT 662731821 / Confirmed Myocardial infarction / SNOMED CT 86469555 / Confirmed Atrial fibrillation / SNOMED CT 32582412 / Confirmed GERD - Gastro-esophageal reflux disease / SNOMED CT 1774629755 / Confirmed Diverticulosis / SNOMED CT 9865694441 / Confirmed Hepatomegaly / SNOMED CT 020187734 / Confirmed Renal calculus / SNOMED CT 498805185 / Confirmed Ovarian cyst / SNOMED CT 166921001 / Confirmed Arthritis / SNOMED CT 2485239 / Confirmed Back pain / PNED [id number] / Confirmed Fibromyalgia / SNOMED CT 59174160 / Confirmed Restless legs syndrome / SNOMED CT 00142522 / Confirmed Diabetes mellitus type II / SNOMED CT 25195980 / Confirmed Thyroid disease / SNOMED CT 767656283 / Confirmed Edema / SNOMED CT 330820636 / Confirmed BLE neuropathy hands and feet / Confirmed frequent headache / Confirmed AIHA (autoimmune hemolytic anemia) / SNOMED CT 8748701431 / Confirmed Resolved: Bronchitis / SNOMED CT 63582033 Resolved: Bowel obstruction / SNOMED CT 164456105 Canceled: Atrial fibrillation / SNOMED CT 30537673 Canceled: Lazy eye / SNOMED CT 651258542 lazy eye blindness (left eye) Canceled: Heart failure / SNOMED CT 740832741 Canceled: Heart valve / SNOMED CT 206525504 Canceled: High blood pressure / SNOMED CT 82593780 Canceled: Hyperlipidemia / SNOMED CT 40926096 Canceled: Cardiac arrhythmia / SNOMED CT 0268301688 Canceled: COPD / SNOMED CT 03791427 Canceled: Diabetes mellitus / SNOMED CT 673430552 Canceled: Anemia, iron deficiency / SNOMED CT 345780177, Active Problems (25) AIHA (autoimmune hemolytic anemia) [...] EDT Height Source Stated Height Entry Format [place] Height/Length, TURKISH (ft) 5 ft Height/Length TURK[place] 4 Inch CLINICALHEIGHT 162.56 cm Routine Weight Source Standing scale Routine Weight Entry Format [place] Routine Weight, Pounds 204 lb Routine Weight, [...] on filedocumented in this encounter Care Teams Umbrella Tipper Hand Relationship Specialty Start Date End Date Reji Castro MD [address] [place] [address] PCP - General Adolescent Medicine 10/02/22 documented as of this encounter
--- OUTSIDE RECORDS SUMMARY | 2025-05-07 13:06 | XMS_ITS | Encounter Summary ---
Author Organization [employer] Address [address] [place] [address] Care Team Providers Care V Belt Skiver Name Role Phone Reji Castro MD Primary Care Provider + [phone] Encounter Details Date Type Department Care Team (Late st Contact Info) Description 08/27/2021 Transcribed Document [facility] [place] [address] [place], [place] [id number] ProviderDelvin MD [address] [place] [address] Social History Tobacco Use Types Packs/Day Years [...] cefTRIAXone: 2 Gram, 100 mL/Hr, IV Piggyback, [id number] diphenhydrAMINE: 25 mg, Oral, Q6H, PRN: Itching [...] 2 g injection: 2 Gram, IV Piggyback, [id number], 0 Refill(s) cefdinir 300 mg oral capsule: [...] Oral, BID cefTRIAXone 2 Gram, IV Piggyback, [id number] citalopram 20 mg tab 40 mg 2 [...] Bioprosthetic mitral valve replacement / SNOMED CT 925481663 / Confirmed Chronic kidney disease / SNOMED CT 3017865465 / Confirmed COPD - Chronic obstructive pulmonary disease / SNOMED CT 662434573 / Confirmed History of obstructive sleep apnea / IMO 73139329 / Confirmed HLD - Hyperlipidemia / SNOMED CT 717012458 / Confirmed HTN - Hypertension / SNOMED CT 4008151972 / Confirmed Canceled: Atrial fibrillation / SNOMED CT 00882183, Active Problems (25) AIHA (autoimmune hemolytic anemia) [...] on filedocumented in this encounter Care Teams V Belt Skiver Relationship Specialty Start Date End Date Reji Castro MD [address] [place] [id number] PCP - General Adolescent Medicine 10/02/22 documented as of this encounter
--- OUTSIDE RECORDS SUMMARY | 2025-05-07 13:06 | XMS_ITS | Encounter Summary ---
Author Organization [employer] Address [address] [place] [address] Care Team Providers Care Learning Disabilities Resource Teacher Name Role Phone Reji Castro MD Primary Care Provider [phone] Encounter Details Date Type Department Care Team (Late st Contact Info) Description 08/21/2021 Transcribed Document [facility] [place] [facility] [place] [address] ProviderDelvin MD [facility] [place] [address] Social History Tobacco Use Types Packs/Day Years Used Date Smoking Tobacco: Never Assessed Comments Unknown Sex and Gender Information Value Date Recorded Sex Assigned at Not on file Legal Sex Female 4:32 PM CDT Gender Identity Not on file Sexual Orientation Not on file documented as of this encounter Miscellaneous Notes * [employer]ner Conversion Note - Delvin ProviderMD - 08/21/2021 2:00 AM CDT Contact Officer Details Entered On: 08/21/2021 6:32 EDT Performed [...] filedocumented in this encounter Care Teams Learning Disabilities Resource Teacher Relationship Specialty Start Date End Date Reji Castro MD [address] [place] [address] PCP - General Adolescent Medicine 10/02/22 documented as of this encounter
--- OUTSIDE RECORDS SUMMARY | 2025-05-07 13:06 | XMS_ITS | Encounter Summary ---
Author Organization [employer] Address [address] [place] [address] Care Team Providers Care Automatic Grinder Operator Name Role Phone Reji Tovar MD Primary Care Provider [phone] Encounter Details Date Type Department Care Team (Late st Contact Info) Description 08/27/2021 Transcribed Document [facility] [place] [address] [place] [address] ProviderDelvin MD [address] [place] [address] Social History Tobacco Use Types Packs/Day Years [...] take to pcp f/u Depression Celexa Pain [place] 10 mg every 6 hours as needed Procedures SN - Proc - Procedure: Vascular Access Insertion (08/19/21 08:00:32)ATE OF PROCEDURE: 08/19/2021 SURGEON: Nena Holliday MD 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 PROCEDURE PERFORMED: Right IJ PowerPort placement. IT DESKTOP SUPPORT TECHNICIAN: Cherri Ya. ANESTHESIA: Local MAC. FINDINGS: An 8-Tamazight single lumen PowerPort was placed using a [...] and J-wire followed by passage of the 8-Tamazight single-lumen catheter. Once again, fluoroscopy was used [...] taken to the Recovery in stable condition. /[id number] Nena Holliday MD JMH/AQ [1] Operative Report [...] back to her room in stable condition. /[id number] MD GERMAINE Pollard/TONYA / DOTTIE / MODL /[id number] Signature Line Electronically Signed on 08/14/2021 11:35 [...] past, CAD, mitral valve replacement presents to [facility] emergency department in [place] after being told by outside provider that [...] what doses. She was seen by our perianesthesia nurse with no new findings, rec to f/u with her usual perianesthesia nurse. Vital Signs T: 36.4 ??C TMIN: 36.4 [...] 2 g injection 2 Gram, IV Piggyback, [id number] Celexa 40 mg oral tablet 40 mg [...] -- Start: 08/19/21 9:34:00 EDT, 60 gm carbs:[id number] kori, Isolation: Standard Precautions, Instructions: Diabetic Diet Follow Up Labs/Studies Blood Gases (Current Encounter/Past 24 Hours) No Blood Gas Results Found (Past 24 Hours) Electrolytes(BMP) Results (Current Encounter/Past 24 Hours) Sodium Level 137 mmol/L 08/27/2021 05:09 Potassium Level 4.0 mmol/L 08/27/2021 05:09 Chloride Level 97 mmol/L LOW 08/27/2021 05:09 Carbon Dioxide Level 36 mmol/L AL 08/27/2021 05:09 Anion Gap 8 LOW 08/27/2021 05:09 Blood Urea Nitrogen 22 mg/dL 08/27/2021 05:09 Glucose Level 140 mg/dL AL 08/27/2021 05:09 Calcium Level 9.5 mg/dL 08/27/2021 05:09 Creatinine Level 1.40 mg/dL AL 08/27/2021 05:09 Cardiac Markers (Current Encounter/Past 24 [...] LOW 08/27/2021 05:09 Creatinine Level 1.40 mg/dL AL 08/27/2021 05:09 eGFR 47 mL/min/1.73m2 LOW 08/27/2021 05:09 Sodium Level 137 mmol/L 08/27/2021 05:09 Potassium Level 4.0 mmol/L 08/27/2021 05:09 Chloride Level 97 mmol/L LOW 08/27/2021 05:09 Carbon Dioxide Level 36 mmol/L AL 08/27/2021 05:09 Anion Gap 8 LOW 08/27/2021 05:09 Blood Urea Nitrogen 22 mg/dL 08/27/2021 05:09 Glucose Level 140 mg/dL AL 08/27/2021 05:09 Calcium Level 9.5 mg/dL 08/27/2021 05:09 Coagulation Results (Current Encounter/Past 24 Hours) PT 26.0 Second(s) AL 08/27/2021 05:04 INR 2.6 AL 08/27/2021 05:04 Creatinine Clearance (Current Encounter/Past 24 Hours) Creatinine Level 1.40 mg/dL AL 08/27/2021 08:46 Bun/Creatinine 15.7 08/27/2021 05:09 Estimated [...] P; REJI GUERRA MD 08/11/2021 20:36 EDT Electronically signed by Lanny [facility] Conversion Adoption Manager Cerner at 03/09/2023 8:54 PM CDT documented in this encounter Plan of Treatment Not on file documented as of this encounter Visit Diagnoses Not on filedocumented in this encounter Care Teams Automatic Grinder Operator Relationship Specialty Start Date End Date Reji Tovar MD [address] [place] [address] PCP - General Adolescent Medicine 10/02/22 documented as of this encounter
--- OUTSIDE RECORDS SUMMARY | 2025-05-07 13:06 | XMS_ITS | Encounter Summary ---
Author Organization [employer] Address [address] [place] [address] Care Team Providers Care Vmware Consultant Name Role Phone Reji Castro MD Primary Care Provider [phone] Encounter Details Date Type Department Care Team (Late st Contact Info) Description 08/16/2021 Transcribed Document [facility] [place] [address] [place] [address] ProviderDelvin MD [address] [place] [address] Social History Tobacco Use Types Packs/Day Years [...] Bed scale Routine Weight Entry Format : [place] Routine Weight, Pounds : 190 lb Routine Weight Calculation : 86.36 kg Height Source : Stated Height Entry Format : [place] Height, Feet : 5 ft Height, Inches [...] on filedocumented in this encounter Care Teams Vmware Consultant Relationship Specialty Start Date End Date Reji Castro MD [address] [place] [address] PCP - General Adolescent Medicine 10/02/22 documented as of this encounter
--- OUTSIDE RECORDS SUMMARY | 2025-05-07 13:06 | XMS_ITS | Encounter Summary ---
Author Organization [employer] Address [address] [place] [address] Care Team Providers Care Metal Weather Stripper Name Role Phone Reji Castro MD Primary Care Provider [phone] Encounter Details Date Type Department Care Team (Late st Contact Info) Description 08/21/2021 Transcribed Document [facility] [place] [address] [place] [address] ProviderDelvin MD [address] [place] [address] Social History Tobacco Use Types Packs/Day Years [...] filedocumented in this encounter Care Teams Metal Weather Stripper Relationship Specialty Start Date End Date Reji Castro MD [address] [place] [address] PCP - General Adolescent Medicine 10/02/22 documented as of this encounter
--- OUTSIDE RECORDS SUMMARY | 2025-05-07 13:06 | XMS_ITS | Encounter Summary ---
Author Organization [employer] Address [address] [place] [address] Care Team Providers Care Tractor Operator Laser Leveling Name Role Phone Reji Castro MD Primary Care Provider [phone] Encounter Details Date Type Department Care Team (Late st Contact Info) Description 08/21/2021 Transcribed Document [facility] Radiology [address] [place] [address] Loren Solorzano MD [address] [place] [address] [address] [place] [id number] Social History Tobacco Use Types Packs/Day Years [...] cefTRIAXone: 2 Gram, 100 mL/Hr, IV Piggyback, [id number] diphenhydrAMINE: 25 mg, Oral, Q6H, PRN: Itching [...] Oral, BID cefTRIAXone 2 Gram, IV Piggyback, [id number] citalopram 20 mg tab 40 mg 2 [...] Bioprosthetic mitral valve replacement / SNOMED CT 301664148 / Confirmed Chronic kidney disease / SNOMED CT 4329413493 / Confirmed COPD - Chronic obstructive pulmonary disease / SNOMED CT 759416703 / Confirmed History of obstructive sleep apnea / IMO 33816878 / Confirmed HLD - Hyperlipidemia / SNOMED CT 898549098 / Confirmed HTN - Hypertension / SNOMED CT 0025725964 / Confirmed Canceled: Atrial fibrillation / SNOMED CT 46528085, Active Problems (25) AIHA (autoimmune hemolytic anemia) [...] 21 06:00) 97.6 (AUG 21 06:00) 98 ([facility] 11:00) Apical HR 70 (AUG 20 20:27) 70 (AUG 20 20:27) 70 (AUG 20 20:27) Mon HR 61 (AUG 21 06:00) 61 (AUG 21 06:00) 89 ([facility] 11:00) Resp Rate 15 (AUG 21 06:00) 15 (AUG 21 06:00) 18 (AUG 20 11:00) SBP 101 (AUG 21 06:00) 95 (AUG 20 23:30) 127 ([facility] 11:00) DBP 68 (AUG 21 06:00) L 50 (AUG 20 15:00) 80 ([facility] 11:00) MAP 78 (AUG 21 06:00) 63 [...] Hold home meds SSI #Depression Celexa #Pain [place] 10 mg every 6 hours as needed Dispo: Given patient with history of multiple transfusion we will keep patient in the hospital on heparin drip and Coumadin till INR therapeutic need IV abx, at least until 09/08. Discussed with ed case manager. and pharmcy Time spent 25 minutes documented in this encounter Plan of Treatment Not on file documented as of this encounter Visit Diagnoses Not on filedocumented in this encounter Care Teams Tractor Operator Laser Leveling Relationship Specialty Start Date End Date Reji Castro MD [address] [place] [address] PCP - General Adolescent Medicine 10/02/22 documented as of this encounter
--- OUTSIDE RECORDS SUMMARY | 2025-05-07 13:06 | XMS_ITS | Encounter Summary ---
Author Organization [employer] Address [address] [place] [address] Care Team Providers Care Bituminous Distributor Operator Name Role Phone Reji Castro MD Primary Care Provider [phone] Encounter Details Date Type Department Care Team (Late st Contact Info) Description 08/22/2021 Transcribed Document [facility] [place] [address] [place], [place] [id number] ProviderDelvin MD [address] [place] [address] Social History Tobacco Use Types Packs/Day Years [...] cefTRIAXone: 2 Gram, 100 mL/Hr, IV Piggyback, [id number] diphenhydrAMINE: 25 mg, Oral, Q6H, PRN: Itching [...] Oral, BID cefTRIAXone 2 Gram, IV Piggyback, [id number] citalopram 20 mg tab 40 mg 2 [...] Bioprosthetic mitral valve replacement / SNOMED CT 157320536 / Confirmed Chronic kidney disease / SNOMED CT 7507745159 / Confirmed COPD - Chronic obstructive pulmonary disease / SNOMED CT 637858127 / Confirmed History of obstructive sleep apnea / IMO 53665808 / Confirmed HLD - Hyperlipidemia / SNOMED CT 637444256 / Confirmed HTN - Hypertension / SNOMED CT 4437194421 / Confirmed Canceled: Atrial fibrillation / SNOMED CT 28630330, Active Problems (25) AIHA (autoimmune hemolytic anemia) [...] GFR adjust medications. Electronically signed by Lanny, [facility] Conversion Joint Special Operations Cerner at 03/09/2023 8:43 PM CDT documented in this encounter Plan of Treatment Not on file documented as of this encounter Visit Diagnoses Not on filedocumented in this encounter Care Teams Bituminous Distributor Operator Relationship Specialty Start Date End Date Reji Castro MD [address] [place] [address] PCP - General Adolescent Medicine 10/02/22 documented as of this encounter
--- OUTSIDE RECORDS SUMMARY | 2025-05-07 13:06 | XMS_ITS | Encounter Summary ---
Author Organization [employer] Address [address] [place] [address] Care Team Providers Care Sill Worker Name Role Phone Reji Castro MD Primary Care Provider [phone] Encounter Details Date Type Department Care Team (Late st Contact Info) Description 08/21/2021 Transcribed Document [facility] [place] [address] [place] [address] ProviderDelvin MD [address] [place] [address] Social History Tobacco Use Types Packs/Day Years [...] 08/21/2021 18:33 EDT Electronically signed by Lanny [facility] Conversion Processing Assistant Cerner at 03/09/2023 8:36 PM CDT documented in this encounter Plan of Treatment Not on file documented as of this encounter Visit Diagnoses Not on filedocumented in this encounter Care Teams Sill Worker Relationship Specialty Start Date End Date Reji Castro MD [address] [place] [address] PCP - General Adolescent Medicine 10/02/22 documented as of this encounter
--- OUTSIDE RECORDS SUMMARY | 2025-05-07 13:06 | XMS_ITS | Data Portability ---
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 Cesar 59-year-old female here for: 1)Iron-deficiency anemia 2)Anemia requiring blood transfusions 3)CKD stage 3 4)Fatigue - Anemia likely multifactorial due to CKD and hemolytic anemia. No identifiable signs of GI bleed but concern for given chronically low hemoglobin of 7 even with RBC transfusion - recommend EGD and colonoscopy for further evaluation of bleeding, H. pylori, peptic ulcer disease, and celiac disease. Patient is concerned with comorbidities if she can tolerate prep. May have to admit to the hospital through the ER given her frequent need for blood transfusions and symptomatic anemia Plan - Oncologist got CT 10/27 at [facility]. Will get records. - Schedule Pill Cam - Will refer to Dr. Lopez at [facility] for EGD and Colonoscopy d/t iron deficiency anemia as it is closer to her home 5)Uncontrolled GERD-improved -Continue dexilant 60 mg -Elevation of head of the bed -Remain upright 2 to 3 hours after eating -Dietary modification: Avoidance of triggers such as fatty foods, caffeine, chocolate, spicy foods, food with high fat content, carbonated beverages, peppermint, acidic and citrus items 6)Constipation -She is on a 1.5 ml fluid restriction - Trial linzess 72 mcg (samples given) will call if she wants prescription -Ingest 20 to 30 g of insoluble fiber per day -Drink 6-8 glasses of water daily to ensure adequate hydration -Refrain from straining or lingering (eg reading) on the toilet. -Practice regular physical exercise -Limit intake of fatty foods and alcohol, which can exacerbate constipation Not available 11/29/2024 13:55:32 01/23/2025 01/23/2025 Ms. Cesar 59-year-old female here for: 1)Iron-deficiency anemia 2)Anemia requiring blood transfusions 3)CKD stage 3 4)Fatigue - PillCam showed bleeding throughout small bowel starting at duodenum- Dr. betancur recommended push enteroscopy - discussed PillCam findings with Jade Moser PACS ADMINISTRATOR an updated her on Dr. Betancur's recommendation for PUSH procedure - reviewed findings with patient - EGD/colonoscopy scheduled with Dr. Lopez at [facility] as it is closer to her home 5)Uncontrolled GERD-improved -Continue dexilant 60 mg -Elevation of head of the bed -Remain upright 2 to 3 hours after eating -Dietary modification: Avoidance of triggers such as fatty foods, caffeine, chocolate, spicy foods, food with high fat content, carbonated beverages, peppermint, acidic and citrus items 6)Constipation - using MiraLax, Linzess 72 and Dulcolax for constipation -Ingest 20 to 30 g of insoluble fiber per day -Drink 6-8 glasses of water daily to ensure adequate hydration -Refrain from straining or lingering (eg reading) on the toilet. -Practice regular physical exercise -Limit intake of fatty foods and alcohol, which can exacerbate constipation Not available 01/23/2025 16:24:58 Plan of Treatment Reminders Order Date Submit Date Provider Last Modified By Organization Details Last Modified Time Details Appointments None recorded. Lab None recorded. Referral None recorded. Procedures upper endoscopy procedure (EGD) (PROC) 2024 025 [facility] (Central Scheduling), [address] [place] [address] [place], [address], 11:06:05 colonoscop y procedure (PROC) [facility] [address] [place] [address] [place], [address], 08:49:52 Surgeries None recorded. Imaging None recorded. Medication Orders Miralax 17 gram/dose oral powder 2024 [email or web address] [facility], [address] [place], [address], 5 11:55:43 Dulcolax (bisacodyl ) 5 mg tablet,del ayed release 2024 [email or web address] [facility], [address] [place], [address], 11:55:43 Patient TargetsNo targets recorded. Patient Instructions Encounter Date Encounter Id Patient Instructions Last Modified By Organization Details Last Modified Time 10/11/2024 [id number] Patient benefits from CPAP with resolution of fatigue, witnessed apneas and snores. She is compliant with CPAP. She is on auto CPAP in a range of 4-20 cm. Continue CPAP each and every night full sleep cycle. Weight loss. Patient is compliant with CPAP with an apnea plus hypopnea index of 0.7. RTC in one year. [email or web address] Not available 10/11/2024 10:48:47 Reason for Referral None Reported. Results Created Date Observation Date Name Description Value Unit Range Abnormal Flag Note LastModifiedBy Organization Detail LastModifiedTime 01/25/2001/24/2025 HEMAT OCRIT + HEMOG LOBIN HGB 7.2 g/dL 12.0-1 5.7 critical low Not Available [facility] (Lab Registration) [address], [place], [address], 01/24/2025 14:45:05 01/25/20 25 01/24/2025 HEMAT OCRIT + HEMOG LOBIN HCT 25.5 % 36.0-4 7.0 low Not Available [facility] (Lab Registration) [address] [place], [address], 01/24/2025 14:45:05 01/25/20 25 01/24/2025 HEMAT OCRIT + HEMOG LOBIN note Anthony s other chen noted testi ng perfo rmed at: [facility] [address] [place] [address] [phone] Bo cisneros MD CLIA: [id number] Not Available [facility] (Lab Registration) [address] , [place], [address], 01/24/2025 14:45:05 10/05/20 24 08/23/2024 joselito teixeira ow study No observ ation record ed. [email or web address] [facility] [address], [place], [place], [address], 11/17/2024 10:19:10 11/17/20 24 11/17/2024 RF, small bowel follo w-thr ough study No observ ation record ed. [facility] [address], [place], [address], 12/06/2024 11:06:36 01/08/20 25 capsu le endos copy (PROC ) No observ ation record ed. [email or web address] Not Available 2024 09:08:22 Result Notes None recorded. Problems Name Problem SNOMED Code Status Onset Date Resolution Date Notes Provider Name and Address Organization Details Recorded Time Iron deficiency anemia 23003146 Active 2024 Ninoska Moser NP [address], [address], [place], [address], [place] [facility] [place] [facility] [place] 5 10:47:25 Chronic idiopathic constipation 68354535 Active 2024 Ninoska Moser NP [address], [address], [place], [address], [place] [facility] [place] [facility] [place] 5 10:54:45 Gastro-esophag eal reflux disease with esophagitis 385482368 Active 2024 Ninoska Moser NP [address], [address], [place], [address], [place] [facility] [place] [facility] [place] 5 10:54:45 Obstructive sleep apnea syndrome 55994283 Active 2022 Farhan Bae MD [address] [place] [address],[place] [address], [place], [address] [facility] [place] - [facility] & [place] 3 10:26:00 Problem Notes None recorded. Procedures Surgical History Date Name Laterality Status Provider Name and Address Organization Details Recorded Time 01/25 esophagogastroduodenoscopy completed Maye Card [place] [facility] [place] [facility] [place] 5 17:05:17 01/25 Colonoscopy completed Maye Card [place] [facility] [place] [facility] [place] 5 17:05:26 01/31 completed Shanice Ezekiel [place] [facility] [place] [facility] [place] 5 09:52:06 07/31 Date of Last Colonoscopy completed Kimberl y Ezekiel [place] [facility] [place] [facility] [place] 5 09:52:06 ligation of fallopian tube completed Crystal Earlywine [place] [facility] [place] & [place] 3 10:12:53 Imaging Results None recorded. Procedure Notes None recorded. Medical Equipment None Reported. Allergies Allergen ID Allergen Name Allergen Category Reaction Reaction Severity Criticality Documentation Date Start Date Code Code System Note Provider Name and Address Organization Details Recorded Time 44273 Buprenex medicatio n Not available Not available Not available 12/18/2022 54148 0 RxNorm Crystal Earlywine null, [place] - [facility] [place] [facility] [place] 3 10:08:00 42256 codeine medicatio n Not available Not available Not available 12/18/2022 2670 RxNorm Crystal Earlywine null, [place] [facility] [place] [facility] [place] 3 10:08:06 51636 Levaquin medicatio n Not available Not available Not available 12/18/2022 53413 2 RxNorm Crystal Earlywine null, [place] [facility] [place] [facility] [place] 3 10:08:13 [address]49[address] Rocephin medicatio n Not available Not available Not available 12/18/2022 9449 RxNorm Crystal Earlywine null, [place] - [facility] & [place] 3 10:08:19 18724 Iodinated contrast media (substanc e) medicatio n Not available Not available Not available 12/18/2022 72287 2004 SNOMED [place] 3 10:08:26 Medications Name Sig Start Date Stop Date Status Note LastModified by Organization Details LastModified Time accu-chek guide me w/device USE DIRECTED active Not Available Not Available No t Available amoxicillin 500 mg capsule TAKE (1) CAPSULE BY MOUTH THREE TIMES DAILY. 12/18 completed Not Available Not Available Not Available metolazone 2.5 mg tablet TAKE 1 TABLET BY MOUTH ONCE A DAY. active Not Available Not Available No t Available Miralax 17 gram/dose oral powder Take 17 g by oral route for 2 days. 2024 active Not Available Not Available Not Avai lable ipratropium 0.5 mg-albutero l 3 mg (2.5 mg base)/3 mL nebulizatio n soln INHALE 1 VIAL VIA NEBULIZER EVERY 3 HOURS NEEDED FOR SHORTNESS OF BREATH UNTIL BREATHING RETURNS TO TARGET PEAK/FLOW PARAMETER S. active Not Available Not Available No t Available bumetanide 2 mg tablet TAKE (1) TABLET BY MOUTH TWICE A DAY. active Not Available Not Available No t Available citalopram 40 mg tablet TAKE 1 TABLET BY MOUTH ONCE DAILY. 01/03 completed Not Available Not Available Not Available azithromyci n 250 mg tablet TAKE 2 TABLETS BY MOUTH THE 1ST DAY, THEN TAKE 1 TABLET BY MOUTH EVERY DAY FOR 4 DAYS 01/03 completed Not Available Not Available Not Available ofloxacin 0.3 % eye drops INSTILL 1 DROP INTO AFFECTED EYE(S) 4 TIMES DAILY FOR 5 DAYS 01/03 completed Not Available Not Available Not Available amiodarone 200 mg tablet TAKE 1 TABLET BY MOUTH ONCE A DAY. active Not Available Not Available No t Available metoprolol succinate ER 50 mg tablet,exte nded release 24 hr TAKE (2) TABLETS BY MOUTH DAILY. 01/03 completed Not Available Not Available Not Available metoprolol succinate ER 200 mg tablet,exte nded release 24 hr TAKE 1 TABLET BY MOUTH ONCE A DAY FOR BLOOD PRESSURE 10/11 completed Not Available Not Available Not Available ondansetron HCl 4 mg tablet active Not Available Not Available Not Available metoprolol succinate ER 100 mg tablet,exte nded release 24 hr TAKE (1) TABLET BY MOUTH TWICE A DAY. active Not Available Not Available No t Available clonazepam 1 mg tablet TAKE (1) TABLET BY MOUTH THREE TIMES DAILY NEEDED FOR ANXIETY 01/03 completed Not Available Not Available Not Available Accu-Chek Softclix Lancets USE DIRECTED TWICE DAILY active Not Available Not Available No t Available allopurinol 100 mg tablet TAKE (1) TABLET BY MOUTH TWICE A DAY. 01/03 completed Not Available Not Available Not Available omeprazole 40 mg capsule,del ayed release TAKE ONE CAPSULE BY MOUTH 2 TIMES DAILY. 01/03 completed Not Available Not Available Not Available doxycycline monohydrate 100 mg tablet TAKE (1) TABLET EVERY TWELVE HOURS FOR 10 DAYS. 10/11 completed Not Available Not Available Not Available spironolact one 25 mg tablet TAKE ONE TABLET BY MOUTH 2 TIMES DAILY FOR EDEMA 01/03 completed Not Available Not Available Not Available levothyroxi ne 25 mcg tablet TAKE 1 TABLET BY MOUTH ONCE A DAY. active Not Available Not Available No t Available warfarin 4 mg tablet TAKE 1/2 TABLET BY MOUTH WEDNESDAY, WEDNESDAY , WEDNESDAY, AND 1 TABLET ALL OTHER DAYS. active Not Available Not Available No t Available warfarin 3 mg tablet TAKE DIRECTED 01/03 completed Not Available Not Available Not Available alprazolam 0.5 mg tablet TAKE (1) TABLET BY MOUTH THREE TIMES DAILY. active Not Available Not Available No t Available potassium chloride ER 20 mEq tablet,exte nded release(par t/cryst) TAKE 1 TABLET BY MOUTH TWICE DAILY. active Not Available Not Available No t Available oxycodone-a cetaminophe n 10 mg-325 mg tablet TAKE (1) TABLET BY MOUTH FOUR TIMES DAILY. *FILL 01/05/25 active Not Available Not Available No t Available Humulin R Regular U-100 Insulin 100 unit/mL injection solution INJECT 10 UNITS SUB-Q WITH MEALS. active Not Available Not Available No t Available oseltamivir 75 mg capsule TAKE 1 CAPSULE BY MOUTH EVERY 12 HOURS FOR 5 DAYS. 01/03 completed Not Available Not Available Not Available esomeprazol e magnesium 40 mg capsule,del ayed release TAKE (1) CAPSULE BY MOUTH ONCE A DAY. active Not Available Not Available No t Available dexamethaso ne 4 mg tablet TAKE (1) TABLET BY MOUTH TWICE A DAY. 10/11 completed Not Available Not Available Not Available lidocaine 5 % topical patch APPLY ONE PATCH-KAYCE VE ON FOR 12 HOURS & OFF FOR 12 HOURS. active Not Available Not Available No t Available warfarin 5 mg tablet TAKE 1/2 TABLET BY MOUTH ON WEDNESDAY AND WEDNESDAY AND 1 TABLET ALL OTHER DAYS 01/03 completed Not Available Not Available Not Available budesonide 0.5 mg/2 mL suspension for nebulizatio n USE 1 VIAL IN NEBULIZER TWICE DAILY 01/03 completed Not Available Not Available Not Available bumetanide 1 mg tablet TAKE (1) TABLET BY MOUTH TWICE A DAY. 01/03 completed Not Available Not Available Not Available mupirocin 2 % topical ointment APPLY TO AFFECTED AREA THREE TIMES DAILY FOR 5 DAYS active Not Available Not Available No t Available metoprolol succinate ER 25 mg tablet,exte nded release 24 hr TAKE 1 TABLET BY MOUTH ONCE A DAY. 12/18 completed Not Available Not Available Not Available ergocalcife rol (vitamin D2) 1,250 mcg (50,000 unit) capsule TAKE 1 CAPSULE BY MOUTH ONCE MONTHLY 01/03 completed Not Available Not Available Not Available levalbutero l 1.25 mg/3 mL solution for nebulizatio n USE 1 VIAL THREE TIMES A DAY 10/11 completed Not Available Not Available Not Available levofloxaci n 500 mg tablet TAKE 1 TABLET BY MOUTH ONCE A DAY. 10/11 completed Not Available Not Available Not Available albuterol sulfate HFA 90 mcg/actuati on aerosol inhaler INHALE 2 PUFFS EVERY 4 HOURS NEEDED FOR WHEEZING active Not Available Not Available No t Available colchicine 0.6 mg tablet active Not Available Not Available Not Available cefdinir 300 mg capsule TAKE (1) CAPSULE BY MOUTH TWICE DAILY. 01/03 completed Not Available Not Available Not Available calcitriol 0.25 mcg capsule TAKE (1) CAPSULE BY MOUTH ONCE A DAY. active Not Available Not Available No t Available spironolact one 50 mg tablet TAKE (1) TABLET BY MOUTH TWICE A DAY. active Not Available Not Available No t Available diazepam 5 mg tablet TAKE ONE TABLET BY MOUTH AT BEDTIME. 01/03 completed Not Available Not Available Not Available amoxicillin 875 mg-potassiu m clavulanate 125 mg tablet TAKE 1 TABLET BY MOUTH EVERY 12 HOURS 10/11 completed Not Available Not Available Not Available Dulcolax (bisacodyl) 5 mg tablet,james yed release Take 2 tablets by oral route for 1 day. 2024 active Not Available Not Available Not Avai lable enoxaparin 100 mg/mL subcutaneou s syringe INJECT 0.86 ML (86 MG) UNDER THE SKIN EVERY 12 HOURS FOR PERIOPERA TIVE ANTICOAGU LATION FOR 10 DAYS. active Not Available Not Available No t Available amoxicillin -potassium clavulanate 1,000 mg-62.5 mg tablet,ext. rel 12hr 10/11 completed Not Available Not Available Not Available nitrofurant oin monohydrate /macrocryst als 100 mg capsule TAKE (1) CAPSULE BY MOUTH TWICE DAILY. 10/11 completed Not Available Not Available Not Available duloxetine 30 mg capsule,del ayed release TAKE 1 CAPSULE BY MOUTH AT BEDTIME 10/11 completed Not Available Not Available Not Available duloxetine 60 mg capsule,del ayed release TAKE (1) CAPSULE BY MOUTH ONCE A DAY. active Not Available Not Available No t Available Flovent HFA 110 mcg/actuati on aerosol inhaler INHALE 2 PUFFS BY MOUTH TWICE DAILY 10/11 completed Not Available Not Available Not Available BD Insulin Syringe Ultra-Fine 0.5 mL 30 gauge x 1/2 USE THREE TIMES DAILY WITH MEALS active Not Available Not Available No t Available peg 3350-electr olytes 236 gram-22.74 gram-6.74 gram-5.86 gram solution DRINK 240 MILLILITE RS BY MOUTH EVERY 10 MINUTES FOR COLONOSCO PY. 01/03 completed Not Available Not Available Not Available Lantus Solostar U-100 Insulin 100 unit/mL (3 mL) subcutaneou s pen INJECT 10 UNITS SUB-Q AT BEDTIME. EACH PEN EXPIRES 28 DAYS AFTER FIRST USE. active Not Available Not Available No t Available diclofenac 1 % topical gel APPLY 2 GRAMS TO THE AFFECTED AREA(S) BY TOPICAL ROUTE 4 TIMES PER DAY 01/03 completed Not Available Not Available Not Available dexlansopra zole 60 mg capsule,bip hase delayed release TAKE (1) CAPSULE BY MOUTH ONCE A DAY. 2024 active Not Available Not Available Not Avai lable febuxostat 40 mg tablet TAKE 1 TABLET BY MOUTH ONCE DAILY. active Not Available Not Available No t Available Dexilant 30 mg capsule, delayed release TAKE (1) CAPSULE BY MOUTH ONCE A DAY. 01/03 completed Not Available Not Available Not Available BD Ultra-Fine Mariely Pen Needle 32 gauge x 5/32 USE TWICE DAILY active Not Available Not Available No t Available Lancets,Ult ra Thin 26 gauge CHECK TWICE DAILY active Not Available Not Available No t Available Jardiance 10 mg tablet TAKE 1 TABLET BY MOUTH EVERY MORNING. active Not Available Not Available No t Available True Metrix Glucose Meter DIRECTED. 01/03 completed Not Available Not Available Not Available Mitigare 0.6 mg capsule TAKE (1) CAPSULE BY MOUTH DAILY NEEDED FOR GOUT FLARE active Not Available Not Available No t Available Amanda SoloStar U-300 Insulin 300 unit/mL (1.5 mL) subcutaneou s pen INJECT 80 UNITS SUB-Q IN THE MORNING 01/03 completed Not Available Not Available Not Available Soliqua 100/33 100 unit-33 mcg/mL subcutaneou s insulin pen INJECT 60 UNITS UNDER SKIN EVERY MORNING active Not Available Not Available No t Available Accu-Chek Guide test strips USE TO CHECK BLOOD GLUCOSE 2 TIMES DAILY. active Not Available Not Available No t Available FreeStyle Gerson 14 Day [place] USE DIRECTED active Not Available Not Available No t Available FreeStyle Gerson 14 Day Sensor kit REPLACE EVERY 14 DAYS DIRECTED active Not Available Not Available No t Available Paxlovid 300 mg (150 mg x 2)-100 mg tablets in a dose pack TAKE 3 TABLETS BY MOUTH FROM YELLOW SIDE IN THE MORNING AND 3 TABLETS IN THE EVENING FROM THE BLUE SIDE FOR 5 DAYS 12/18 completed Not Available Not Available Not Available Vitals Date Recorded Body height Body mass index (BMI) Body weight Body temperature Oxygen saturation Oxygen saturation in Arterial blood by Pulse oximetry Heart rate Heart rate Systolic blood pressure Diastolic blood pressure Provider Name and Address Organization Details Last Updated DateTime 5 162.56 cm 32.5 kg/m2 05977.3 9 g 97.9 [degF] 90 % 90 % 80 /min 77 /min 100 mm[Hg] 69 mm[Hg] Hannah COBB [facility] [place] 5 13:04:38 Date Recorded Body height Body mass index (BMI) Body weight Body temperature Oxygen saturation Oxygen saturation in Arterial blood by Pulse oximetry Heart rate Provider Name and Address Organization Details Last Updated DateTime 5 162.56 cm 32.2 kg/m2 69272.2 1 g 97.8 [degF] 90 % 90 % 85 /min Shanice Ezekiel [place] - [facility] & [place] 5 09:51:59 Date Recorded Body height Provider Name an d Address Organization Details Last Updated DateTime 01/23/2025 162.56 cm NAFISA LE NP [address] [facility], [place], [address], [place] [facility] & [place] 01/23/2025 15:38:59 Date Recorded Heart rate Provider Name an d Address Organization Details Last Updated DateTime 10/11/2024 71 /min Farhan gao MD [address] [facility],[address], [place], [address], [place] DAMIÁN [facility] [place] 10/11/2024 10:47:19 Date Recorded Body height Body mass index (BMI) Body weight Oxygen saturation Oxygen saturation in Arterial blood by Pulse oximetry Respiratory rate Systolic blood pressure Diastolic blood pressure Provider Name and Address Organization Details Last Updated DateTime 4 162.56 cm 32.8 kg/m2 86869.4 2 g 97 % 97 % 12 /min 118 mm[Hg] 78 mm[Hg] Malini COBB - [facility] & [place] 4 10:42:15 Social History Question Answer Notes LastModified by Organizat ion Details LastModified Time Tobacco Smoking Status Former Smoker 1/2 PPD 30 years Malini gonzalez, [place] - [facility] [place] 12/18/2022 10:12:37 Do You Have An Advance Directive? No Information not available 01/03/2025 Are You Blind Or Do You Have Difficulty Seeing? No Information not available 01/03/2025 When Did You Quit Smoking? 16+yearssin linda lemonte QUIT 01/10/2006 [email or web address] Information not available 10/11/2024 What Was The Date Of Your Most Recent Tobacco Screening? 12/20/2024 Information not available 01/03/2025 Are You Passively Exposed To Smoke? Yes Information not available 01/03/2025 Sex: Unknown Functional Status Question Answer Note LastModified by Organizat ion Details LastModified Time Do you use any illicit or recreational drugs? No Information not available 01/03/2025 What is your level of alcohol consumption? None Information not available 01/03/2025 What is your exercise level? Occasional Information not available 01/03/2025 Mental Status None recorded. Family History Relationship Description Onset Age of this Age Resolved Age Notes LastModified by Organization Details LastModified Time Father Essential hypertension [email or web address] Not available 10/2025 10:01:30 Mother Diabetes mellitus [email or web address] Not available 2024 10:05:40 Medical History Condition Response Coronary Artery Disease N None N Gout Y Colon Cancer N Kidney Stones N Hyperthyroidism N Thyroid Problems Y Kidney or Bladder Problems Y GI Problems Y Hypothyroidism Y Lung Disease Y COPD Y Depression Y Osteoporosis/Osteopenia Y Clotting Disorder Y Anemia Y Diverticulitis/Diverticulosis Y Colon Polyps Y Neurological Problems Y Diabetes Y Anxiety Disorder Y Autoimmune disease Y Bleeding Disorder Y Obesity Y Vision or Eye Problems Y Seizures/Epilepsy N Arthritis N Tuberculosis N Hyperlipidemia Y Cancer N Back Problems Y Stroke N Asthma Y Reflux/GERD Y Sleep Apnea Y GERD/Reflux Y High Cholesterol Y Hepatitis N Cirrhosis N Liver Disease N Heart Disease Y Headaches Y Hypertension Y Kidney Disease Y Gynecological History Statement/Question Response Abnormal Pap N Date of Last Colonoscopy 07/31/2017 01/31/2021 Sexually Active? N Menses Monthly N Current Control Method None Obstetrics History GPAL:G 0 P 0 0 0 0 Immunizations Vaccine Type Date Status Note Provider Nam e and Address Organization Details Recorded Time meningococcal B, OMV 9 completed Crystal Earlywine null, [place] - [facility] [place] [facility] [place] 10/11/2024 10:42:50 meningococcal B, OMV 9 completed Crystal Earlywine null, [place] [facility] [place] [facility] [place] 10/11/2024 10:42:50 Influenza, recombinant, quadrivalent, PF 1 completed Crystal Earlywine null, [place] [facility] [place] [facility] [place] 10/11/2024 10:42:50 COVID-19, mRNA, LNP-S, PF, 100 mcg/0.5mL dose or 50 mcg/0.25mL dose 1 completed Crystal Earlywine null, [place] [facility] [place] [facility] [place] 10/11/2024 10:42:50 COVID-19, mRNA, LNP-S, PF, 100 mcg/0.5mL dose or 50 mcg/0.25mL dose 1 completed Crystal Earlywine null, [place] [facility] [place] [facility] [place] 10/11/2024 10:42:50 pneumococcal polysaccharide PPV23 9 completed Crystal Earlywine null[place] [facility] [place] [facility] [place] 10/11/2024 10:42:50 Tdap 3 completed Crystal Earlywine [place] [facility] [place] [facility] [place] 10/11/2024 10:42:50 Pneumococcal conjugate PCV 13 9 completed Crystal Earlywine [place] [facility] [place] [facility] [place] 10/11/2024 10:42:50 Hib (PRP-T) 9 completed Crystal Earlywine null[place] [facility] [place] [facility] [place] 10/11/2024 10:42:50 Meningococcal MCV4O 9 completed Crystal Earlywine null[place] [facility] [place] 10/11/2024 10:42:50 Meningococcal MCV4O 9 completed Crystal Earlywine null, [place] - [facility] - [place] & [place] 10/11/2024 10:42:50 Influenza, split virus, quadrivalent, PF 0 completed Crystal [place], [place] [facility] [place] 10/11/2024 10:42:50 Influenza, split virus, quadrivalent, PF 9 completed Crystal [place], [place] [facility] [place] 10/11/2024 10:42:50 Influenza, split virus, quadrivalent, PF 7 completed REZA More[place] - [place] & [place] 10/11/2024 10:42:50 Past Encounters Encounter ID Performer Location Encounter Start Date Encounter Closed Date Diagnosis/Indication Diagnosis SNOMED-CT Code Diagnosis ICD10 Code Diagnosis Note [id number] MD [facility] [address] [place] [address] [address] 12/18/2022 09:57:02 12/18/2022 10:09:54 Obstructive sleep apnea syndrome 91022332 G47.33 [id number] MD [facility] [address] [place] [address] DR MCCORD [address] [place] [id number] 10/11/2024 10:32:12 10/11/2024 10:47:15 Obstructive sleep apnea syndrome 12200844 G47.33 [id number] NAFISA LE NP [facility] [address] [address] 10/06/2024 09:54:50 10/06/2024 10:56:04 Gastroesophageal reflux disease 721574450 K21.9 Iron defic iency anemia 03483636 D50.9 History of blood transfusion 180446519 Z92.89 Chronic ki dney disease stage 3 816123110 N18.30 Fatigue 87484632 R53.83 Chronic id iopathic constipation 24032828 K59.04 [id number] NAFISA LE NP [facility] [address] [address] 11/29/2024 12:15:00 11/29/2024 13:42:06 Gastroesophageal reflux disease 904587837 K21.9 - continue Dexilant 60 mg Iron defic iency anemia 37618749 D50.9 - refer to [place] for EGD and colonoscop y History of blood transfusion 390145812 Z92.89 - small bowel follow through reviewed- Schedule Pill Cam Chronic ki dney disease stage 3 858757411 N18.30 Fatigue 26686877 R53.83 Chronic id iopathic constipation 45580969 K59.04 - trial Linzess [id number] Trey Lopez M.D [facility] [address] [place] [address] 01/03/2025 08:58:20 01/03/2025 10:18:02 Iron deficiency anemia 40493791 D50.9 Ongoing for many years. She follows with Hem/Onc Dr. Pro and received 2 units PRBC 01/02/25. She also receives iron infusions. Recently completed capsule endoscopy with Dr. Betancur and is scheduled to follow up next week regarding results. Referred to our GI service to schedule EGD/colono scopy to evaluate ongoing anemia, due to closer location for procedures . Last EGD and colonoscop y estimated 10 years ago in [place] which were negative. She continues to follow with Cardiology , Dr. Pendleton. Recommend EGD/colono scopy to further evaluate after cardiac clearance, Dr. Pendleton, has been obtained as she is prescribed Warfarin. Will obtain recent labs to review. Gastro-eso phageal reflux disease with esophagitis 317168003 K21.00 Controlled with use of Dexilant. Chronic id iopathic constipation 60022542 K59.04 Currently prescribed Miralax, Linzess 72 mcg, and Dulcolax for treatment. [id number] NAFISA LE NP [facility] [address] [address] 01/23/2025 15:34:39 01/23/2025 15:56:32 Gastroesophageal reflux disease 112028081 K21.9 - continue Dexilant 60 mg Iron defic iency anemia 63862581 D50.9 History of blood transfusion 980381791 Z92.89 Chronic ki dney disease stage 3 420524066 N18.30 Fatigue 58534921 R53.83 Chronic id iopathic constipation 84183800 K59.04 Health Concerns Section Related Observation LastModified by Organization Detai ls LastModified Time None Recorded Concern Status LastModified by Organization Details LastModified Time None Recorded Advance Directives Directive N: Payers Insurance Date Sequence Insurance Name Policy Number Policy Edwards Covered Member ID Edwards Member ID Guarantor Name 01/31/2025 1 [facility] - DUAL ELIGIBLE (MEDICARE REPLACEMENT/AD VANTAGE - HMO) [id number] Irina A Costa [id number] Irina A Costa 01/23/2025 1 [place] H[place] [id number] Irina A Costa [id number] Irina A Costa 10/11/2024 1 [place] [id number] Irina A Costa [id number] Irina A Costa 10/11/2024 1 [id number] Irina Yeison Costa [id number] Irina A Costa 10/11/2024 2 [place] FFS/TRADITIONA L Irina A Costa [id number] Irina A Costa 03/14/2025 2 MEDICAID-[facility] HE[facility] CHO[facility] - FFS/TRADITIONA L Irina A Costa [id number] Irina A Costa 01/23/2025 1 [place] [id number] Irina Yeison Costa [id number] Irina A Costa 01/23/2025 1 [employer] (MEDICARE REPLACEMENT/AD VANTAGE - PPO) Irina A Costa [id number] Irina A Costa 10/11/2024 2 [place] Irina A Costa [id number] Irina A Costa 10/11/2024 2 [employer] (PPO) Irina A Costa [id number] Irina Costa Notes Date Note Type Note Provider Name and Address Organization Details Recorded Time 10/11/2024 text/html 59-year-old fema le previous smoker a half a pack a day for 30 years, she quit in 2005.She voices no cardiopulmonary complaints today. Patient has history of mitral valve replacement, autoimmune hemolytic anemia, atrial fibrillation, hypertension and diabetes. She is on Coumadin. She has a pacemaker , as of June 2024, as per Dr. Sawyer. She has a non magnetic N30 mask.She again denies fatigue, EDS, hypersomnia, sleep attacks, sleep hallucinations, sleep paralysis, cataplexy or RLS.Denies fever, chills, night sweats, hemoptysis, pleurisy, dyspnea, chest pain, chest pressure, orthopnea, PND, syncope, palpitations, cough, productive sputum or dizziness.The patient does not get sleepy, drowsy or fall asleep while driving, patient warned no driving motorized vehicles or operating machinery while fatigued, sleepy or drowsy, she voiced understanding. She has lost weight with diet modification she states.She voices no cardiopulmonary complaints, no GI complaints, no neurologic complaints today.Modified Wells criteria of 0. [place] of 2.She voices no sleep-related or CPAP related issues.Patient is compliant with CPAP with an apnea plus hypopnea index of 0.7. Patient had a sleep study that revealed an apnea plus hypopnea index of 29, she spent 86% of the night above 90% saturation, lowest saturation recorded was 76%. She follows with Dr. Sawyer and a media services specialist. Patient was again instructed to follow-up her primary care provider regarding all pulmonary issues including but not limited to chest x-rays, CT scans, PFTs, meds etc. (patient voiced understanding and stated she would). I am seeing her for sleep apnea/CPAP only at the patient's request. This note was completed using a dictation system. We do our best to minimize mistakes by this dictation system, but some dictation system mistakes cannot be identified. If something does not make sense and/ or appears in error please do not hesitate to contact our office. We can correct the record and/ or clarify for you.The patient was warned no driving motorized vehicles or operating heavy machinery while fatigued, sleepy or drowsy, she voiced understanding and she stated she would not.Patient was instructed to read the side effect package profile very carefully on all medications prescribed, and to stop medications immediately and go to ER if the patient has any problems, she voiced understanding. Patient was instructed to go over side effects /adverse effects / drug interactions with all of the prescribed and burz-dqn-nknlkeh medications with a pharmacist, the patient again voiced understanding. The patient was instructed to go to ER if the patient does not improve or worsens, she again voiced understanding. Farhan Bae MD [address] [facility],[address], [place], [address], [place] [facility] [place] & [place] 10/11/2024 10:49:13 11/29/2024 text/html PREVIOUS: Mrs. Natalie ya is 59 year old female with history third-degree heart block, AFib, mitral valve replacement with mechanical valve on Warfarin, heart failure, COPD, and CKD stage III referred to our office by Dr. Rain and Dr. Pro for anemia. Patient was diagnosed with hemolytic anemia in 2014 but did not tolerate prednisone. She is failed Cytoxan and danazol. She underwent splenic embolectomy and has require multiple transfusions since her procedure. She has also required occasional iron infusions. Baseline hemoglobin has been 10 for several years until recently. On April 28, 2024 she was found to have a hemoglobin is 7.4 and received 1 unit packed red cells. Recheck several days later showed hemoglobin of 7.6. Her iron at the time was 35 with a normal TIBC of 416 and a low saturation 8.4%. She received IV iron and 2 doses of Venofer Venofer. Last transfusion was week of July 31, once again hemoglobin 7.3 with marked fatigue. She again received unit of packed red cells. She has had no identifiable signs of blood loss. She had EGD and colonoscopy years ago which were negative but none recently. patient was sent here for small-bowel follow-through. Discuss need to fully evaluate GI system with colonoscopy and EGD as well. Patient is concerned about bowel prep and whether she will be able to tolerate with all her comorbidities. Patient currently lives in [place] as well which is a far distance. She reports no symptoms except for worsening GERD and fatigue. CURRENT: Ms. Costa is here for follow up. She had her small bowel follow through and needs to have her pill cam. She is on weekly labs through her oncologist. Recent labs showed hemoglobin down to 7.0. She received 1st of 3 iron transfusion at [facility] today. She is scheduled for blood transfusion tomorrow. she reports no blood in stool but she is having more frequent nosebleeds and hemoptysis. She [facility] and they are lowering her dose. we discussed EGD and colonoscopy again. She is concerned about the distance to get to the hospital especially having to bowel prep. Admission through the ED at [facility] would be 1 option. However patient is open to EGD/colonoscopy with Dr. Lopez in [place] since it is closer. NAFISA LE, CHUCK [address] [facility], [place], [address], [facility] 11/29/2024 13:55:56 01/03/2025 text/html 59 year old fema le with a past medical history of AFib, mitral valve replacement with mechanical valve on Warfarin, COPD, CKD stage III, GERD, constipation, and anemia. Patient referred to our office for EGD/colonoscopy to evaluate ongoing anemia, continues to follow with Dr. Betancur. She follows with Hem/Onc Dr. Pro and received 2 units PRBC yesterday. She also receives iron infusions. She reports having a recent capsule endoscopy with Dr. Betancur and is scheduled to follow up next week regarding results. She is prescribed Dexilant for treatment of GERD. She is taking miralax, Linzess 72 mcg, and dulcolax for treatment of constipation. Last EGD and colonoscopy estimated 10 years ago in [place] which were negative. She denies melena or BRBPR. She continues to follow with Cardiology, Dr. Pendleton. Ninoska Moser, CHUCK [address] [facility], [address], [place], [address], [facility] 01/05/2025 12:06:47 01/23/2025 text/html PREVIOUS: Mrs. Natalie ay is 59 year old female with history third-degree heart block, AFib, mitral valve replacement with mechanical valve on Warfarin, heart failure, COPD, and CKD stage III referred to our office by Dr. Rain and Dr. Pro for anemia. Patient was diagnosed with hemolytic anemia in 2014 but did not tolerate prednisone. She is failed Cytoxan and danazol. She underwent splenic embolectomy and has require multiple transfusions since her procedure. She has also required occasional iron infusions. Baseline hemoglobin has been 10 for several years until recently. On April 28, 2024 she was found to have a hemoglobin is 7.4 and received 1 unit packed red cells. Recheck several days later showed hemoglobin of 7.6. Her iron at the time was 35 with a normal TIBC of 416 and a low saturation 8.4%. She received IV iron and 2 doses of Venofer Venofer. Last transfusion was week of July 31, once again hemoglobin 7.3 with marked fatigue. She again received unit of packed red cells. She has had no identifiable signs of blood loss. She had EGD and colonoscopy years ago which were negative but none recently. patient was sent here for small-bowel follow-through. Discuss need to fully evaluate GI system with colonoscopy and EGD as well. Patient is concerned about bowel prep and whether she will be able to tolerate with all her comorbidities. Patient currently lives in [place] as well which is a far distance. She reports no symptoms except for worsening GERD and fatigue. PREVIOUS: Ms. Costa is here for follow up. She had her small bowel follow through and needs to have her pill cam. She is on weekly labs through her oncologist. Recent labs showed hemoglobin down to 7.0. She received 1st of 3 iron transfusion at [facility] today. She is scheduled for blood transfusion tomorrow. she reports no blood in stool but she is having more frequent nosebleeds and hemoptysis. She was just [facility] and they are lowering her dose. we discussed EGD and colonoscopy again. She is concerned about the distance to get to the hospital especially having to bowel prep. Admission through the ED at [facility] would be 1 option. However patient is open to EGD/colonoscopy with Dr. Lopez in [place] since it is closer. CURRENT: Mrs. Costa is attends via [employer] today for follow up after pill cam. I discussed with Mrs. Costa which showed bleeding throughout the small bowel starting in duodenum. She is scheduled with Dr. Lopez for EGD and colonoscopy. I informed her that I had discussed pill cam findings with Jade Moser NP and Dr. Betancur recommendations for PUSH enteroscopy. Mrs. Costa verbalizes understanding of findings. She denies any new GI symptoms. She reports no other questions. I spent 30 (3:45-4:15) minutes with patient on Audio and Video visit performed utilizing [employer] HIPAA compliant platform. Participants: patient and provider. Locations of each: Patient is at their home in [place], Provider is at the office in [place], [place]. Verbal consent was obtained before the start of the appointment obtained. NAFISA LE NP [address], [place], [address], [facility] - [place] - [place] 01/23/2025 16:28:33 OBGyn Episode No OBEpisode recorded.
--- OUTSIDE RECORDS SUMMARY | 2025-05-07 13:06 | XMS_ITS | Encounter Summary ---
Author Organization [employer] Address [address] [place] [address] Care Team Providers Care Christmas Tree Grower Name Role Phone Reji Tovar MD Primary Care Provider + [phone] Encounter Details Date Type Department Care Team (Late st Contact Info) Description 08/27/2021 Transcribed Document [facility] [place] Family Medicine [address] [place] [address] ProviderDelvin MD [address] [place], [place] [id number] Social History Tobacco Use Types Packs/Day Years [...] Celestin MD - 08/27/2021 1:31 PM CDT [facility] [address] IRINA TAMAYO :1965 Visit Time:08/11/2021 Your Visit Summary Your Care Team Admitting Physician - VINCE BELLO MD Attending Physician - FAIZA YOUSSEF DO-GAUDENCIO Primary Care Physician - DEREK ROBISON DR Referring Physician - VINCE BELLO MD Your Diagnosis Bacteremia Acute kidney injury superimposed on chronic kidney disease, Acute kidney injury CHF with unknown LVEF Atrial fibrillation Diabetes mellitus type II MCC current use of anticoagulant At risk for [...] contact Dr. Sawyer's office directly. Where: [address] [facility] [address] [place] [address]- Follow Up with LISA RICKETTS When 09/03/2021 10:45 AM EDT Comments Hospital follow up appointment has been made. Please arrive 15 minutes early to the appointment. If you need to reschedule, please contact [facility] directly. Where: [address] [facility] [address] [place] [address]- Business (1) Follow Up with NENA PEARSON MD-[facility] When Within 1 week Comments [facility] will contact you with appointment date and time. Where: [address] [facility] [address] [place] [address]- Follow Up with REJI TOVAR (REF)[facility] When Within 5 to 7 days Comments The [facility] will contact you with appointment date and time. Where: [address] [place] [address]- Follow Up with JERRELL GONZALEZ When Within 2 weeks Comments The [facility] will contact you with appointment date and time. Where: Warfarin Instructions Indication for Warfarin Anticoagulation: Atrial fibrillation Indication for Warfarin Anticoagulation: Atrial fibrillation Warfarin Anticoagulation Disposition: Continuation of pre-hospital treatment Warfarin Anticoagulation Disposition: Continuation of pre-hospital treatment Duration Warfarin Therapy, Shelter: Yes Target INR: 2.5 - 3.5 Physician [...] to 25mg daily Pickup at [facility] spironolactone (spironolactone 25 mg oral tablet) 1 Tablet(s) Oral Every Day Please note: Dose REDUCTION to 1 tablet daily warfarin (Coumadin 4 mg oral tablet) 2 Tablet(s) Oral Every Day Please note: Dose INCREASE Pickup at [facility] acetaminophen-oxyCODONE (Percocet 10/ 325 oral [...] Both Every Day Pharmacy Information [facility]: [address] [place] [address] [phone] Take your medications faithfully. Do NOT skip [...] these instructions at home: Medicines ??? Take ikoa-nnu-zmguxsq and prescription medicines only as told by [...] and water are not available, use hand doorshaker. ??? You should wash your hands: ? [...] care provider. ??? Practice good oral hygiene. [place] your teeth two times a day, and [...] provider. Document Revised: 03/29/2020 Document Reviewed: 03/29/2020 [employer] Patient Education ?? 2020 [employer]. Warfarin Coagulopathy Warfarin coagulopathy refers to bleeding [...] stopping any new medicines. Many prescription and hbjn-olp-pdjscrc medicines can interfere with warfarin. This includes afry-qgh-ezyxyoc vitamins, dietary supplements, herbal medicines, and pain [...] that you work with a diet and fireworks display specialist (dietitian). ??? Vitamin K makes warfarin less [...] Preventing bleeding and injury ??? Some common mpjl-nuf-qyovdyd medicines and supplements may increase the risk [...] diet. ??? You start or stop any bhnr-ybt-mabsgxn medicine, prescription medicine, or dietary supplement. ??? [...] Reviewed: 01/26/2018 Elsevier Patient Education ?? 2020 [employer] Inc. Vitamin K Foods and Warfarin Warfarin [...] before making changes. ??? Work with a fireworks display specialist (dietitian) to develop a meal plan that works best for you. What foods are high in vitamin K? Foods that are high in vitamin K contain more than 100 mcg (micrograms) per serving. These include: ??? Broccoli (cooked from fresh) ? cup (78 g) has 110 mcg. ??? [place] sprouts (cooked from fresh) ? cup (78 [...] cup (90 g) has 444 mcg. ??? Finnish chard (cooked from fresh) ? cup (88 [...] cup (54 g) has 8 mcg. ??? [place] with peel (raw) ? cup (52 g) has 9 mcg. ??? Grapes ? cup (76 g) has 12 mcg. ??? [place] ??? 1 medium (207 g) has 9 [...] Reviewed: 08/27/2020 Elsevier Patient Education ?? 2020 [employer] Inc. Implanted Port Home Guide An implanted [...] implanted port has two main parts: ??? [place]. The reservoir is the part where a [...] water are not available, use alcohol-based hand doorshaker. ? Change your dressing as told by [...] provider. Document Revised: 03/01/2020 Document Reviewed: 12/11/2017 [employer] Patient Education ?? 2020 [employer] Acute Kidney Injury, Adult Acute kidney [...] these instructions at home: Medicines ??? Take mahm-nbi-wpjdild and prescription medicines only as told by [...] important. Where to find more information ??? [place] [employer] of Kidney Patients: www.aakp.org ??? National Kidney Foundation: www.kidney.org ??? [place] [employer]: www.akfinc.org ??? [employer] [facility] [...] provider. Document Revised: 09/17/2020 Document Reviewed: 09/17/2020 [employer] Patient Education ?? 2020 [employer]. Chronic Kidney Disease, Adult Chronic kidney disease [...] these instructions at home: Medicines ??? Take vbnq-wxm-gxtyqeu and prescription medicines only as told by [...] provider. Document Revised: 10/21/2018 Document Reviewed: 12/13/2017 [employer] Patient Education ?? 2020 [employer] Implanted Port Home Guide An implanted [...] implanted port has two main parts: ??? [place]. The reservoir is the part where a [...] water are not available, use alcohol-based hand doorshaker. ? Change your dressing as told by [...] provider. Document Revised: 03/01/2020 Document Reviewed: 12/11/2017 [employer] Patient Education ?? 2020 [employer]. Atrial Fibrillation Atrial fibrillation is a [...] signals of the heart. ??? An ambulatory manager cardiac cath to record your heart's activity for a [...] provider. Document Revised: 05/01/2020 Document Reviewed: 05/01/2020 [employer] Patient Education ?? 2020 [employer] Aspirin and Your Heart Aspirin is [...] on filedocumented in this encounter Care Teams Christmas Tree Grower Relationship Specialty Start Date End Date Reji Tovar MD [address] [place] [address] [place] [address] PCP - General Adolescent Medicine 10/02/22 documented as of this encounter
--- OUTSIDE RECORDS SUMMARY | 2025-05-07 13:06 | XMS_ITS | Encounter Summary ---
Author Organization [employer] Address [address] [place] [address] Care Team Providers Care Toll Collector Name Role Phone Reji Castro MD Primary Care Provider [phone] Encounter Details Date Type Department Care Team (Late st Contact Info) Description 08/27/2021 Transcribed Document [facility] [place] Family Medicine [address] [place] [address] ProviderDelvin MD [address] [place] [address] Social History Tobacco Use Types Packs/Day Years Used Date Smoking Tobacco: Never Assessed Comments Unknown Sex and Gender Information Value Date Recorded Sex Assigned at Not on file Legal Sex Female 4:32 PM CDT Gender Identity Not on file Sexual Orientation Not on file documented as of this encounter Miscellaneous Notes * Cerner Conversion Note - Delvin ProviderMD - 08/27/2021 2:00 AM CDT Body Trimmer Upholsterer Details Entered On: 08/27/2021 3:29 EDT Performed [...] on filedocumented in this encounter Care Teams Toll Collector Relationship Specialty Start Date End Date Reji Castro MD [address] [place] [address] [place] [address] PCP - General Adolescent Medicine 10/02/22 documented as of this encounter
--- OUTSIDE RECORDS SUMMARY | 2025-05-07 13:06 | XMS_ITS | Encounter Summary ---
Author Organization [employer] In iatives Address [address] [place] [address] Care Team Providers Care Collar Trimmer Name Role Phone Reji Castro MD Primary Care Provider [phone] Encounter Details Date Type Department Care Team (Late st Contact Info) Description 08/16/2021 Transcribed Document [facility] [place] [address] [place] [address] ProviderDelvin MD [facility] [place] [address] Social History Tobacco Use Types Packs/Day Years [...] 5. Diabetes mellitus type II E11.9 6. penitentiary current use of anticoagulant Z79.01 At risk for central venous catheter associated infection Z91.89 Chronic kidney disease N18.9 Medical screening exam [id number] Medications Inpatient acetaminophen, 650 mg= 2 Tab, [...] failure) penicillins propafenone theophylline Electronically signed by [facility], [facility] Conversion Clinical Data Specialist Cerner at 03/09/2023 8:52 PM CDT documented in this encounter Plan of Treatment Not on file documented as of this encounter Visit Diagnoses Not on filedocumented in this encounter Care Teams Collar Trimmer Relationship Specialty Start Date End Date Reji Castro MD [address] [place] [id number] PCP - General Adolescent Medicine 10/02/22 documented as of this encounter
--- OUTSIDE RECORDS SUMMARY | 2025-05-07 13:06 | XMS_ITS | Encounter Summary ---
Author Organization [employer] In iatives Address [address] [place] [address] Care Team Providers Care Centrifugal Wax Molder Name Role Phone Reji Castro MD Primary Care Provider [phone] Reason for Referral * Ultrasound (Routine) - Closed Specialty Diagnoses / Procedures Referred By Contac t Referred To Contact Diagnoses Acute renal failure, unspecified acute renal failure type (HCC) Procedures Ultrasound head neck soft tissue Marion Umana MD Phone: tel: fax: Referral ID Status Reason Start Date Expiration Date Visits Re quested Visits Authorized [id number] Closed 09/28/2022 03/27/2023 1 1 Encounter Details Date Type Department Care Team (Late st Contact Info) Description 09/28/[address] [facility] Central Scheduling [address] [place] [address] Marion Umana MD [facility] [address] [place] [id number] Acute renal failure, unspecified acute renal failure [...] Primary documented in this encounter Care Teams Centrifugal Wax Molder Relationship Specialty Start Date End Date Reji Castro MD [address] [place] [id number] PCP - General Adolescent Medicine 10/02/22 documented as of this encounter
--- OUTSIDE RECORDS SUMMARY | 2025-05-07 13:06 | XMS_ITS | Encounter Summary ---
Author Organization [employer] In iatives Address [address] [place] [address] Care Team Providers Care Molecular Pathologist Name Role Phone Reji Castro MD Primary Care Provider + [phone] Encounter Details Date Type Department Care Team (Late st Contact Info) Description 08/13/2021 Transcribed Document [facility] [place] [facility] [place] [address] ProviderDelvin MD [address] [place] [address] Social History Tobacco Use Types Packs/Day Years [...] III. Patient follows with Dr gonzáles in [place]. She has hx of obstructive uropathy with [...] # 0.62 x10(3)/uL (Low) 08/13/2021 05:19 EDT [place] % 9.5 % (High) 08/13/2021 05:19 EDT [place] # 0.52 K/uL 08/13/2021 05:19 EDT Eos [...] 08/13/2021 05:19 EDT Electronically signed by [facility] Conversion Tennis Ball Coverer Hand Cerner at 03/09/2023 9:02 PM CDT documented in this encounter Plan of Treatment Not on file documented as of this encounter Visit Diagnoses Not on filedocumented in this encounter Care Teams Molecular Pathologist Relationship Specialty Start Date End Date Reji Castro MD [address] [place] [id number] PCP - General Adolescent Medicine 10/02/22 documented as of this encounter
--- OUTSIDE RECORDS SUMMARY | 2025-05-07 13:06 | XMS_ITS | Encounter Summary ---
Author Organization [employer] In iatives Address [address] [place] [address] Care Team Providers Care Ginger Farmer Name Role Phone Reji Castro MD Primary Care Provider [phone] Encounter Details Date Type Department Care Team (Late st Contact Info) Description 08/22/[address] [facility] Radiology [address] [place] [address] Loren Solorzano MD [address] [place] [address] [address] [id number] Social History Tobacco Use Types Packs/Day Years [...] cefTRIAXone: 2 Gram, 100 mL/Hr, IV Piggyback, [id number] diphenhydrAMINE: 25 mg, Oral, Q6H, PRN: Itching [...] Oral, BID cefTRIAXone 2 Gram, IV Piggyback, [id number] citalopram 20 mg tab 40 mg 2 [...] Bioprosthetic mitral valve replacement / SNOMED CT 165832542 / Confirmed Chronic kidney disease / SNOMED CT 6351676838 / Confirmed COPD - Chronic obstructive pulmonary disease / SNOMED CT 798216824 / Confirmed History of obstructive sleep apnea / IMO 08992469 / Confirmed HLD - Hyperlipidemia / SNOMED CT 428230714 / Confirmed HTN - Hypertension / SNOMED CT 8332391081 / Confirmed Canceled: Atrial fibrillation / SNOMED CT 84288610, Active Problems (25) AIHA (autoimmune hemolytic anemia) [...] Hold home meds SSI #Depression Celexa #Pain [place] 10 mg every 6 hours as needed CODE STATUS. Full code Dispo: Given patient with history of multiple transfusion we will keep patient in the hospital on heparin drip and Coumadin till INR therapeutic need IV abx, at least until 09/08. Discussed with manager case. and pharmcy Time spent 25 minutes documented in this encounter Plan of Treatment Not on file documented as of this encounter Visit Diagnoses Not on filedocumented in this encounter Care Teams Ginger Farmer Relationship Specialty Start Date End Date Reji Castro MD [address] [place] [id number] PCP - General Adolescent Medicine 10/02/22 documented as of this encounter
--- OUTSIDE RECORDS SUMMARY | 2025-05-07 13:06 | XMS_ITS | Encounter Summary ---
Author Organization [employer] In i[employer] Address [address] [place] [address] Care Team Providers Care Stiff Leg Derrick Operator Name Role Phone Reji Castro MD Primary Care Provider [phone] Encounter Details Date Type Department Care Team (Late st Contact Info) Description 08/22/2021 Transcribed Document [facility] [place] [address] [place] [address] ProviderDelvin MD [address] [place] [address] Social History Tobacco Use Types Packs/Day Years [...] on filedocumented in this encounter Care Teams Stiff Leg Derrick Operator Relationship Specialty Start Date End Date Reji Castro MD [address] [place] [id number] PCP - General Adolescent Medicine 10/02/22 documented as of this encounter
--- OUTSIDE RECORDS SUMMARY | 2025-05-07 13:06 | XMS_ITS | Encounter Summary ---
Author Organization [employer] In iatives Address [address] [place] [address] Care Team Providers Care Business Systems Manager Name Role Phone Reji Castro MD Primary Care Provider [phone] Encounter Details Date Type Department Care Team (Late st Contact Info) Description 08/27/2021 Transcribed Document [facility] [place] Medicine [address] [place] [address] ProviderDelvin MD [address] [place] [address] Social History Tobacco Use Types Packs/Day Years [...] On: 08/27/2021 12:50 EDT by STEVEN MENDES staple cutter Documentation Patient Disposition, General : Discharge Discharge To : Home with ambulatory/outpatient follow-up Education Comment : poc, meds, safety STEVEN MENDES RN - 08/27/2021 12:50 EDT documented in this encounter Plan of Treatment Not on file documented as of this encounter Visit Diagnoses Not on filedocumented in this encounter Care Teams Business Systems Manager Relationship Specialty Start Date End Date Reji Castro MD [address] [place] [id number] PCP - General Adolescent Medicine 10/02/22 documented as of this encounter
--- OUTSIDE RECORDS SUMMARY | 2025-05-07 13:07 | XMS_ITS | Encounter Summary ---
Author Organization [employer] In i[employer] Address [address] [place] [address] Care Team Providers Care Online Advertising Director Name Role Phone Reji Castro MD Primary Care Provider [phone] Encounter Details Date Type Department Care Team (Late st Contact Info) Description 08/13/2021 Transcribed Document [facility] [place] [facility] [place] [address] ProviderDelvin MD [facility] [place] [address] Social History Tobacco Use Types Packs/Day Years Used Date Smoking Tobacco: Never Assessed Comments Unknown Sex and Gender Information Value Date Recorded Sex Assigned at Not on file Legal Sex Female 4:32 PM CDT Gender Identity Not on file Sexual Orientation Not on file documented as of this encounter Miscellaneous Notes * Cerner Conversion Note - Delvin ProviderMD - 08/13/2021 2:00 AM CDT [employer] Agent Details Entered On: 08/13/2021 6:35 EDT Performed [...] on filedocumented in this encounter Care Teams Online Advertising Director Relationship Specialty Start Date End Date Reji Castro MD [address] [place] [id number] PCP - General Adolescent Medicine 10/02/22 documented as of this encounter
--- OUTSIDE RECORDS SUMMARY | 2025-05-07 13:07 | XMS_ITS | Encounter Summary ---
Author Organization [employer] In iatives Address [address] [place] [address] Care Team Providers Care Environmental Service Aide Name Role Phone Reji Castro MD Primary Care Provider [phone] Encounter Details Date Type Department Care Team (Late st Contact Info) Description 08/23/2021 Transcribed Document [facility] [place] [address] [place], [place] [id number] ProviderDelvin MD [address] [place] [address] Social History Tobacco Use Types Packs/Day Years [...] cefTRIAXone: 2 Gram, 100 mL/Hr, IV Piggyback, [id number] diphenhydrAMINE: 25 mg, Oral, Q6H, PRN: Itching [...] Oral, BID cefTRIAXone 2 Gram, IV Piggyback, [id number] citalopram 20 mg tab 40 mg 2 [...] Bioprosthetic mitral valve replacement / SNOMED CT 961364185 / Confirmed Chronic kidney disease / SNOMED CT 6218065020 / Confirmed COPD - Chronic obstructive pulmonary disease / SNOMED CT 358504760 / Confirmed History of obstructive sleep apnea / IMO 02219675 / Confirmed HLD - Hyperlipidemia / SNOMED CT 808655621 / Confirmed HTN - Hypertension / SNOMED CT 2886198103 / Confirmed Canceled: Atrial fibrillation / SNOMED CT 37330609, Active Problems (25) AIHA (autoimmune hemolytic anemia) [...] Monitor GFR adjust medications. Electronically signed by [facility], [facility] Conversion Afternoon Babysitter Cerner at 03/09/2023 8:48 PM CDT documented in this encounter Plan of Treatment Not on file documented as of this encounter Visit Diagnoses Not on filedocumented in this encounter Care Teams Environmental Service Aide Relationship Specialty Start Date End Date Reji Castro MD [address] [place] [id number] PCP - General Adolescent Medicine 10/02/22 documented as of this encounter
--- OUTSIDE RECORDS SUMMARY | 2025-05-07 13:07 | XMS_ITS | Encounter Summary ---
Author Organization [employer] In iatives Address [address] [place] [address] Care Team Providers Care Branch Specialist Name Role Phone Reji Castro MD Primary Care Provider [phone] Encounter Details Date Type Department Care Team (Late st Contact Info) Description 08/13/2021 Transcribed Document [facility] [place] Family Medicine [address] [place] [address] ProviderDelvin MD [address] [place] [address] Social History Tobacco Use Types Packs/Day Years [...] on filedocumented in this encounter Care Teams Branch Specialist Relationship Specialty Start Date End Date Reji Castro MD [address] [place] [id number] PCP - General Adolescent Medicine 10/02/22 documented as of this encounter
--- OUTSIDE RECORDS SUMMARY | 2025-05-07 13:07 | XMS_ITS | Encounter Summary ---
Author Organization [employer] In iatives Address [address] [place] [address] Care Team Providers Care Travel Guide Name Role Phone Reji Castro MD Primary Care Provider [phone] Encounter Details Date Type Department Care Team (Late st Contact Info) Description 08/18/2021 Transcribed Document [facility] [place] Medicine [address] [place] [address] ProviderDelvin MD [address] [place] [address] Social History Tobacco Use Types Packs/Day Years [...] on filedocumented in this encounter Care Teams Travel Guide Relationship Specialty Start Date End Date Reji Castro MD [address] [place] [address] PCP - General Adolescent Medicine 10/02/22 documented as of this encounter
--- OUTSIDE RECORDS SUMMARY | 2025-05-07 13:07 | XMS_ITS | Encounter Summary ---
Author Organization [employer] In [employer]atives Address [address] [place] [address] Care Team Providers Care Grip Assembler Name Role Phone Reji Castro MD Primary Care Provider [phone] Encounter Details Date Type Department Care Team (Late st Contact Info) Description 08/18/2021 Transcribed Document [facility] [place] [address] [place] [address] ProviderDelvin MD [address] [place] [address] Social History Tobacco Use Types Packs/Day Years [...] # 0.52 x10(3)/uL (Low) 08/18/2021 06:56 EDT [place] % 8.7 % 08/18/2021 06:56 EDT [place] # 0.61 K/uL 08/18/2021 06:56 EDT Eos [...] (High) 08/18/2021 06:56 EDT Electronically signed by [facility] Conversion Video Journalist Cerner at 03/09/2023 9:00 PM CDT documented in this encounter Plan of Treatment Not on file documented as of this encounter Visit Diagnoses Not on filedocumented in this encounter Care Teams Grip Assembler Relationship Specialty Start Date End Date Reji Castro MD [address] [place] [id number] PCP - General Adolescent Medicine 10/02/22 documented as of this encounter
--- OUTSIDE RECORDS SUMMARY | 2025-05-07 13:07 | XMS_ITS | Clinical Summary ---
Author Organization [facility] Address [address] [facility] [address] [place] [address] Phone Care Team Providers Care Armored Machine Operator Name Role Phone Joan Moore MD [phone] [ ] Conditions or Problems Problem Name Problem Code Onset Date Status Entry Date Provider Comment Standard Description Annotate Bloodstream infection due to port, subsequent encounter(s) T80.211D (ICD-10-CM) Active 0 Lisa Torres Bloodstream infection due to central venous catheter, subsequent encounter Coag-negative staph sepsis/septic meia A41.1 (ICD-10-CM) Active 0 Lisa Torres Sepsis due to other specified staphylococcus Autoimmune hemolytic anemia, unspecified 504172188 (SNOMED CT) Active 0 Lisa Torres Autoimmune hemolytic anemia COPD 00611605 (SNOMED CT) Active 0 Lisa Torres Chronic obstructive pulmonary disease Presence of prosthetic heart valve Z95.2 (ICD-10-CM) Active 0 Lisa Torres Presence of prosthetic heart valve HTN CKD, bgn, 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) 6834972 (SNOMED CT) Active 0 Lisa Torres Benign essential hypertension Medications Medication Instructions Start Date Stop Date Generic Name [facility] Provider CEFTRIAXONE SODIUM 1 GM SOLR 2gm IV Q 24hrs through 09/08 [employer] [phone] ceftriaxone 86582792112 [place] LEVOTHYROXINE SODIUM 25 MCG TABS TAKE 1 TABLET BY MOUTH DAILY levothyroxine 12173698633 Belkis Mattson BUMETANIDE 2 MG TABS bumetanide 11907350243 Belkis Mattson DEXILANT 60 MG CPDR dexlansoprazole 01738796963 Belkis Mattson OLOPATADINE HCL 0.2 % SOLN olopatadine 96334772111 Belkis Mattson ALPRAZOLAM 0.5 MG TABS alprazolam 17443207861 Belkis Mattson WARFARIN SODIUM 4 MG TABS warfarin 11626934979 Belkis Mattson SPIRONOLACTONE 25 MG TABS TAKE 1 TABLET BY MOUTH ONCE A DAY. spironolactone 17252673346 Belkis Mattson FOLIC ACID 1 MG TABS TAKE 1 TABLET BY MOUTH ONCE A DAY. folic acid 70345183513 Belkis Mattson RAMY ASPIRIN EC LOW DOSE 81 MG TBEC aspirin 45023311494 Belkis Mattson CELEXA 40 MG TABS citalopram 40747122458 Belkis Mattson docusate sodium unspecified unspecified docusate sodium 33625668048 Angelita Mattson FAMOTIDINE 20 MG TABS famotidine 52943316654 Belkis Mattson PERCOCET 10-325 MG TABS oxycodone-acetam i nophen 95817351980 Belkis Mattson TOPROL XL 25 MG [id number] metoprolol succinate 40543576602 Belkis Mattson CEFTRIAXONE SODIUM 1 GM SOLR 2gm IV Q 24hrs through 09/08 HH [employer] HH [phone] ceftriaxone 81048600739 [facility] Medications Administered No information available. Allergies, Adverse [...]
--- OUTSIDE RECORDS SUMMARY | 2025-05-07 13:07 | XMS_ITS | Encounter Summary ---
Author Organization [employer] Address [address] [place] [address] Care Team Providers Care Back Up Machine Operator Name Role Phone Reji Castro MD Primary Care Provider [phone] Encounter Details Date Type Department Care Team (Late st Contact Info) Description 08/17/2021 Transcribed Document [facility] [place] [address] [place] [address] ProviderDelvin MD [address] [place] [address] Social History Tobacco Use Types Packs/Day Years [...] filedocumented in this encounter Care Teams Back Up Machine Operator Relationship Specialty Start Date End Date Reji Castro MD [address] [place] [id number] PCP - General Adolescent Medicine 10/02/22 documented as of this encounter
--- OUTSIDE RECORDS SUMMARY | 2025-05-07 13:07 | XMS_ITS | Encounter Summary ---
Author Organization [employer] In [employer]atives Address [address] [place] [address] Care Team Providers Care Executive Chairman Name Role Phone Reji Castro MD Primary Care Provider [phone] Encounter Details Date Type Department Care Team (Late st Contact Info) Description 08/13/2021 Transcribed Document [facility] [place] [facility] [place] [address] ProviderDelvin MD [facility] [place] [address] Social History Tobacco Use Types Packs/Day Years [...] her port could not be accessed. Her extension service specialist in charge aspirated fluid from the port that was evidently purulent. I have not yet been able to track down that culture. After the aspiration she developed fever to 103, severe CHEUNG, myalgias and arthralgias. She was admitted to [facility]. She was in the hospital for [...] antibiotics. On 08/08 she presented to a [facility] after she developed severe CHEUNG and myalgias w/o prominent fever. She was subsequently contacted and told to report to [facility] because she had + blood cutures concerning for an infected portacath +/- PVE. 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 Integumentary: Warm, [place]. Neurologic: Alert, Oriented, No focal deficits. [...] recommend therapy to 09/22 Electronically signed by [facility], [facility] Conversion Glazier Helper Cerner at 03/09/2023 8:46 PM CDT documented in this encounter Plan of Treatment Not on file documented as of this encounter Visit Diagnoses Not on filedocumented in this encounter Care Teams Executive Chairman Relationship Specialty Start Date End Date Reji Castro MD [address] [place] [id number] PCP - General Adolescent Medicine 10/02/22 documented as of this encounter
--- OUTSIDE RECORDS SUMMARY | 2025-05-07 13:07 | XMS_ITS | Encounter Summary ---
Author Organization [employer] Address [address] [place] [address] Care Team Providers Care Men'S Swim Coach Name Role Phone Reji Castro MD Primary Care Provider [phone] Encounter Details Date Type Department Care Team (Late st Contact Info) Description 08/18/2021 Transcribed Document [facility] [place] [facility] [place] [address] ProviderDelvin MD [facility] [place] [address] Social History Tobacco Use Types Packs/Day Years [...] her port could not be accessed. Her medical services manager aspirated fluid from the port that was evidently purulent. I have not yet been able to track down that culture. After the aspiration she developed fever to 103, severe CHEUNG, myalgias and arthralgias. She was admitted to [facility]. She was in the hospital [...] subsequently contacted and told to report to [facility] because she had + blood cutures concerning for an infected portacath +/- PVE. 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 Integumentary: Warm, [place]. Neurologic: Alert, Oriented, No focal deficits. Psychiatric: [...] paula cath Discussed at length with patient Electronically signed by [facility] Conversion Or Scrub Tech Cerner at 03/09/2023 8:49 PM CDT documented in this encounter Plan of Treatment Not on file documented as of this encounter Visit Diagnoses Not on filedocumented in this encounter Care Teams Men'S Swim Coach Relationship Specialty Start Date End Date Reji Castro MD [address] [place] [id number] PCP - General Adolescent Medicine 10/02/22 documented as of this encounter
--- OUTSIDE RECORDS SUMMARY | 2025-05-07 13:07 | XMS_ITS | Encounter Summary ---
Author Organization [employer] In [employer] Address [address] [place] [address] Care Team Providers Care Risk Officer Name Role Phone Reji Castro MD Primary Care Provider [phone] Encounter Details Date Type Department Care Team (Late st Contact Info) Description 08/17/2021 Transcribed Document [facility] [place] Family Medicine [facility] [place] [address] ProviderDelvin MD [address] [place] [address] Social History Tobacco Use Types Packs/Day Years [...] Warfarin HPI: 56 y/o F presenting to [facility] with history of COPD, atrial [...] mg, 14 mL, 128 mL/Hr, IV Piggyback, [id number]. diphenhydrAMINE: 50 mg, IV Push, On-CALL, PRN: [...] questions. Thank you, Andrea Moraes, PharmD PGY1 Wireless Team Member Pager: [phone] documented in this encounter Plan of Treatment Not on file documented as of this encounter Visit Diagnoses Not on filedocumented in this encounter Care Teams Risk Officer Relationship Specialty Start Date End Date Reji Castro MD [address] [place] [address] PCP - General Adolescent Medicine 10/02/22 documented as of this encounter
--- OUTSIDE RECORDS SUMMARY | 2025-05-07 13:07 | XMS_ITS | Encounter Summary ---
Author Organization [email or web address] In iatives Address [address] [place] [address] Care Team Providers Care Country Printer Apprentice Name Role Phone Reji Castro MD Primary Care Provider [phone] Encounter Details Date Type Department Care Team (Late st Contact Info) Description 08/18/2021 Transcribed Document [facility] [place] [address] [place] [address] ProviderDelvin MD [address] [place] [address] Social History Tobacco Use Types Packs/Day Years [...] Spiritual Care Intervention/Comment/Summary Points : PreSurgery visit Muslim Preference : Scientologist FAIZA ARIZA - 09/02/2021 12:43 EDT documented in this encounter Plan of Treatment Not on file documented as of this encounter Visit Diagnoses Not on filedocumented in this encounter Care Teams Country Printer Apprentice Relationship Specialty Start Date End Date Reji Castro MD [address] [place] [address] PCP - General Adolescent Medicine 10/02/22 documented as of this encounter
--- OUTSIDE RECORDS SUMMARY | 2025-05-07 13:07 | XMS_ITS | Encounter Summary ---
Author Organization [employer] In i[employer] Address [address] [place] [address] Care Team Providers Care Nursing Staff Development Coordinator Name Role Phone Reji Castro MD Primary Care Provider + [phone] Encounter Details Date Type Department Care Team (Late st Contact Info) Description 08/17/2021 Transcribed Document [facility] [place] Family Medicine [facility] [place] [address] ProviderDelvin MD [facility] [place] [address] Social History Tobacco Use Types Packs/Day Years [...] her port could not be accessed. Her junior high school principal aspirated fluid from the port that was evidently purulent. I have not yet been able to track down that culture. After the aspiration she developed fever to 103, severe CHEUNG, myalgias and arthralgias. She was admitted to [facility]. She was in the hospital for [...] antibiotics. On 08/08 she presented to a [facility] after she developed severe CHEUNG and myalgias w/o prominent fever. She was subsequently contacted and told to report to [facility] because she had + blood cutures concerning for an infected portacath +/- PVE. 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 Integumentary: Warm, Avant. Neurologic: Alert, Oriented, No focal deficits. Psychiatric: [...] of paula cath Electronically signed by Lanny, [facility] Conversion Arterial Embalmer Cerner at 03/09/2023 8:42 PM CDT documented in this encounter Plan of Treatment Not on file documented as of this encounter Visit Diagnoses Not on filedocumented in this encounter Care Teams Nursing Staff Development Coordinator Relationship Specialty Start Date End Date Reji Castro MD [address] [place] [address] PCP - General Adolescent Medicine 10/02/22 documented as of this encounter
--- OUTSIDE RECORDS SUMMARY | 2025-05-07 13:07 | XMS_ITS | Encounter Summary ---
Author Organization [email or web address] Address [address] [place] [address] Care Team Providers Care Tool Mechanic Name Role Phone Reji Castro MD Primary Care Provider [phone] Encounter Details Date Type Department Care Team (Late st Contact Info) Description 08/13/2021 Transcribed Document [facility] [place] Family Medicine [facility] [place], [place] [id number] ProviderDelvin MD [address] [place] [address] Social History Tobacco Use Types Packs/Day Years [...] EDT Performed On: 08/13/2021 10:20 EDT by Renia Tian, CHOIR MEMBER Phone Call for Consults Consult Phone Call/Page Attempt : Other: BEATRIS Edward was on floor and was notified by Celina Wilder Rn about consult Consult Reason : paula cath inf., needing removal. Physician Requesting Consult : FAIZA YOUSSEF DO Physician Requested for Consult : NENA PEARSON MD-[facility] Physician Covering for Consult : SHEBA CARTY PA Date and Time Call Returned : 08/14/2021 10:39 EDT Reina Tian, CHOIR MEMBER - 08/13/2021 10:37 EDT Electronically signed by Lanny, [facility] Conversion Television Engineer Cerner at 03/09/2023 8:38 PM CDT documented in this encounter Plan of Treatment Not on file documented as of this encounter Visit Diagnoses Not on filedocumented in this encounter Care Teams Tool Mechanic Relationship Specialty Start Date End Date Reji Castro MD [address] [place] [address] PCP - General Adolescent Medicine 10/02/22 documented as of this encounter
--- OUTSIDE RECORDS SUMMARY | 2025-05-07 13:07 | XMS_ITS | Encounter Summary ---
Author Organization [employer] In iatives Address [address] [place] [address] Care Team Providers Care Flavoring Oil Filterer Name Role Phone Reji Castro MD Primary Care Provider [phone] Encounter Details Date Type Department Care Team (Late st Contact Info) Description 08/23/2021 Transcribed Document [facility] Radiology [address] [place] [address] Loren Solorzano MD [address] [place] [address] [address] [place] [id number] Social History Tobacco Use Types Packs/Day Years [...] cefTRIAXone: 2 Gram, 100 mL/Hr, IV Piggyback, [id number] diphenhydrAMINE: 25 mg, Oral, Q6H, PRN: Itching [...] Oral, BID cefTRIAXone 2 Gram, IV Piggyback, [id number] citalopram 20 mg tab 40 mg 2 [...] Bioprosthetic mitral valve replacement / SNOMED CT 470224067 / Confirmed Chronic kidney disease / SNOMED CT 2960140537 / Confirmed COPD - Chronic obstructive pulmonary disease / SNOMED CT 758454679 / Confirmed History of obstructive sleep apnea / IMO 01510248 / Confirmed HLD - Hyperlipidemia / SNOMED CT 217959073 / Confirmed HTN - Hypertension / SNOMED CT 8574551302 / Confirmed Canceled: Atrial fibrillation / SNOMED CT 30435113, Active Problems (25) AIHA (autoimmune hemolytic anemia) [...] 26.0 \ Radiology Results (Last 48 hours) [id number] -- 08/11/2021 21:21 CR Chest 1 Vw [...] Hold home meds SSI #Depression Celexa #Pain [place] 10 mg every 6 hours as needed CODE STATUS. Full code Dispo: Given patient with history of multiple transfusion we will keep patient in the hospital on heparin drip and Coumadin till INR therapeutic need IV abx, at least until 09/08. Discussed with immigration case manager. and pharmcy Time spent 25 minutes documented in this encounter Plan of Treatment Not on file documented as of this encounter Visit Diagnoses Not on filedocumented in this encounter Care Teams Flavoring Oil Filterer Relationship Specialty Start Date End Date Reji Castro MD [address] [place] [address] PCP - General Adolescent Medicine 10/02/22 documented as of this encounter
--- OUTSIDE RECORDS SUMMARY | 2025-05-07 13:07 | XMS_ITS | Encounter Summary ---
Author Organization [email or web address] In iatives Address [address] [place] [address] Care Team Providers Care Linux Solaris Administrator Name Role Phone Reji Castro MD Primary Care Provider [phone] Encounter Details Date Type Department Care Team (Late st Contact Info) Description 08/13/2021 Transcribed Document [facility] [place] Family Medicine [address] [place] [address] ProviderDelvin MD [address] [place] [address] Social History Tobacco Use Types Packs/Day Years [...] All Active Orders Reviewed : Yes Genna Gnosalez RN - 08/13/2021 6:34 EDT documented in this encounter Plan of Treatment Not on file documented as of this encounter Visit Diagnoses Not on filedocumented in this encounter Care Teams Linux Solaris Administrator Relationship Specialty Start Date End Date Reji Castro MD [address] [place] [address] PCP - General Adolescent Medicine 10/02/22 documented as of this encounter
--- OUTSIDE RECORDS SUMMARY | 2025-05-07 13:07 | XMS_ITS | Encounter Summary ---
Author Organization [employer] In [employer]atives Address [address] [place] [address] Care Team Providers Care Manager Of Corporate Communications Name Role Phone Reji Castro MD Primary Care Provider [phone] Encounter Details Date Type Department Care Team (Late st Contact Info) Description 08/18/2021 Transcribed Document [facility] [place] Family Medicine [facility] [place] [address] ProviderDelvin MD [address] [place] [address] Social History Tobacco Use Types Packs/Day Years [...] 15:44 EDT by MADINA LOVETT, RN - Potato Chip FrierTobacco Blender Progress Note Discharge Arrangements : Patient Post-Acute [...] Rounds? : Yes MADINA LOVETT, RN - Potato Chip Frier - 08/18/2021 15:44 EDT Narrative Progress Note [...] will need home health and lives in [place]. [facility] [facility] home health is a possibility. CM will [...] and send referrals as appropriate. JULIO STEWART, RN-Potato Chip Frier ED - 08/18/21 10:38:39 MADINA LOVETT, JEREMIAH - Potato Chip Frier - 08/18/2021 15:44 EDT documented in this encounter Plan of Treatment Not on file documented as of this encounter Visit Diagnoses Not on filedocumented in this encounter Care Teams Manager Of Corporate Communications Relationship Specialty Start Date End Date Reji Castro MD [address] [place] [address] PCP - General Adolescent Medicine 10/02/22 documented as of this encounter
--- OUTSIDE RECORDS SUMMARY | 2025-05-07 13:07 | XMS_ITS | Encounter Summary ---
Author Organization [employer] In iatives Address [address] [place] [address] Care Team Providers Care Thermometer Production Worker Name Role Phone Reji Castro MD Primary Care Provider [phone] Encounter Details Date Type Department Care Team (Late st Contact Info) Description 08/18/2021 Transcribed Document [facility] [place] [place] [facility] [place] [address] ProviderDelvin MD [facility] [place] [address] Social History Tobacco Use Types Packs/Day Years [...] Warfarin HPI: 56 y/o F presenting to [facility] with history of COPD, atrial [...] questions. Thank you, Andrea Moraes, PharmD PGY1 Ironmolder Pager: [phone], [phone]. [phone] documented in this encounter Plan of Treatment Not on file documented as of this encounter Visit Diagnoses Not on filedocumented in this encounter Care Teams Thermometer Production Worker Relationship Specialty Start Date End Date Reji Castro MD [address] [place] [address] PCP - General Adolescent Medicine 10/02/22 documented as of this encounter
--- OUTSIDE RECORDS SUMMARY | 2025-05-07 13:07 | XMS_ITS | Encounter Summary ---
Author Organization [employer] In iatives Address [address] [place] [address] Care Team Providers Care Graduate Advisor Name Role Phone Reji Castro MD Primary Care Provider [phone] Encounter Details Date Type Department Care Team (Late st Contact Info) Description 08/13/2021 Transcribed Document [facility] [place] [facility] [place] [address] ProviderDelvin MD [address] [place] [address] Social History Tobacco Use Types Packs/Day Years [...] On: 08/13/2021 9:56 EDT by Reina Tian, TRANSIT PLANNING MANAGER Phone Call for Consults Consult Phone Call/Page Attempt : First call Consult Reason : paula cath infection, needing removal Physician Requested for Consult : Elieser VERNON MD-TATYANA Date and Time Call Returned : 08/14/2021 10:08 EDT Reina Tian, TRANSIT PLANNING MANAGER - 08/13/2021 10:09 EDT documented in this encounter Plan of Treatment Not on file documented as of this encounter Visit Diagnoses Not on filedocumented in this encounter Care Teams Graduate Advisor Relationship Specialty Start Date End Date Reji Castro MD [address] [place] [address] PCP - General Adolescent Medicine 10/02/22 documented as of this encounter
--- OUTSIDE RECORDS SUMMARY | 2025-05-07 13:07 | XMS_ITS | Encounter Summary ---
Author Organization [employer] In iatives Address [address] [place] [address] Care Team Providers Care Survey Research Teacher Name Role Phone Reji Castro MD Primary Care Provider [phone] Encounter Details Date Type Department Care Team (Late st Contact Info) Description 08/13/2021 Transcribed Document [facility] [place] [address] [place] [address] ProviderDelvin MD [address] [place] [address] Social History Tobacco Use Types Packs/Day Years [...] On: 08/13/2021 7:24 EDT by Marline Leija, Customer Orders Clerk Primary Insurance Authorization Authorization and Policy Numbers : Insurance 1 Health Plan: [employer] PPO Policy Number: [id number] Authorization Number: Insurance 2 Health Plan: [place] Policy Number: [id number] Authorization Number: Insurance Primary Name : [employer] PPO Policy Number: [id number] Authorization Status-Primary : Notification only Reference Number-Primary : [id number] Authorization Number-Primary : [id number] Authorized Service Begin Date-Primary : 08/11/2021 EDT Authorization Comments-Primary : Authorized per email from Khari Cohen RN. Historical Authorization Comments-Primary : Comment 1: Pend ref no per Availity, reviewer has access to Cerner (JORGE VALLES RN 08/12/2021 14:07) Marline Leija, Customer Orders Clerk - 08/13/2021 7:24 EDT Electronically signed by Lanny [facility] Conversion Furniture Delivery Driver Cerner at 03/09/2023 8:49 PM CDT documented in this encounter Plan of Treatment Not on file documented as of this encounter Visit Diagnoses Not on filedocumented in this encounter Care Teams Survey Research Teacher Relationship Specialty Start Date End Date Reji Castro MD [address] [place] [id number] PCP - General Adolescent Medicine 10/02/22 documented as of this encounter
--- OUTSIDE RECORDS SUMMARY | 2025-05-07 13:07 | XMS_ITS | Encounter Summary ---
Author Organization [employer] In iatives Address [address] [place] [address] Care Team Providers Care Hall Monitor Name Role Phone Reji Castro MD Primary Care Provider [phone] Encounter Details Date Type Department Care Team (Late st Contact Info) Description 08/23/2021 Transcribed Document [facility] [place] [address] [place] [address] ProviderDelvin MD [address] [place] [address] Social History Tobacco Use Types Packs/Day Years [...] On: 08/23/2021 5:00 EDT by Cecilia Lai, Member Of Parliament-Student Nurse Chart Check Powerplans Initiated/Discontinued as Appropriate : Yes All Active Orders Reviewed : Yes Cecilia Lai Member Of Parliament-Student Nurse - 08/23/2021 5:19 EDT documented in this encounter Plan of Treatment Not on file documented as of this encounter Visit Diagnoses Not on filedocumented in this encounter Care Teams Hall Monitor Relationship Specialty Start Date End Date Reji Castro MD [address] [place] [address] PCP - General Adolescent Medicine 10/02/22 documented as of this encounter
--- OUTSIDE RECORDS SUMMARY | 2025-05-07 13:07 | XMS_ITS | Encounter Summary ---
Author Organization [employer] In iatives Address [address] [place] [address] Care Team Providers Care Financial Foundations Representative Name Role Phone Reji Castro MD Primary Care Provider [phone] Encounter Details Date Type Department Care Team (Late st Contact Info) Description 08/17/2021 Transcribed Document [facility] [place] [address] [place] [address] ProviderDelvin MD [address] [place] [address] Social History Tobacco Use Types Packs/Day Years [...] on filedocumented in this encounter Care Teams Financial Foundations Representative Relationship Specialty Start Date End Date Reji Castro MD [address] [place] [address] PCP - General Adolescent Medicine 10/02/22 documented as of this encounter
--- OUTSIDE RECORDS SUMMARY | 2025-05-07 13:07 | XMS_ITS | Encounter Summary ---
Author Organization [employer] In iatives Address [address] [place] [address] Care Team Providers Care Bar Attendant Name Role Phone Reji Castro MD Primary Care Provider + [phone] Encounter Details Date Type Department Care Team (Late st Contact Info) Description 08/18/2021 Transcribed Document [facility] [place] [facility] [place] [address] ProviderDelvin MD [address] [place] [address] Social History Tobacco Use Types Packs/Day Years [...] History of obstructive sleep apnea / IMO [id number] / Confirmed Bioprosthetic mitral valve replacement / SNOMED CT 447795447 / Confirmed Chronic kidney disease / SNOMED CT 1393631737 / Confirmed COPD - Chronic obstructive pulmonary disease / SNOMED CT 085152346 / Confirmed HTN - Hypertension / SNOMED CT 7412230581 / Confirmed HLD - Hyperlipidemia / SNOMED CT 774245795 / Confirmed Amblyopia / SNOMED CT 1880178913 / Confirmed 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 / SNOMED CT 395609202 / Confirmed Myocardial infarction / SNOMED CT 48602054 / Confirmed Atrial fibrillation / SNOMED CT 20344021 / Confirmed GERD - Gastro-esophageal reflux disease / SNOMED CT 1876414259 / Confirmed Diverticulosis / SNOMED CT 6773187236 / Confirmed Hepatomegaly / SNOMED CT 932929741 / Confirmed Renal calculus / SNOMED CT 172357122 / Confirmed Ovarian cyst / SNOMED CT 095066307 / Confirmed Arthritis / SNOMED CT 1734194 / Confirmed Back pain / PNED [id number] / Confirmed Fibromyalgia / SNOMED CT 47746118 / Confirmed Restless legs syndrome / SNOMED CT 78483213 / Confirmed Diabetes mellitus type II / SNOMED CT 95065316 / Confirmed Thyroid disease / SNOMED CT 137549523 / Confirmed Edema / SNOMED CT 914680953 / Confirmed BLE neuropathy hands and feet / Confirmed frequent headache / Confirmed AIHA (autoimmune hemolytic anemia) / SNOMED CT 7873301234 / Confirmed, Active Problems (25) AIHA (autoimmune [...] on filedocumented in this encounter Care Teams Bar Attendant Relationship Specialty Start Date End Date Reji Castro MD [address] [place] [address] PCP - General Adolescent Medicine 10/02/22 documented as of this encounter
--- OUTSIDE RECORDS SUMMARY | 2025-05-07 13:07 | XMS_ITS | Encounter Summary ---
Author Organization [employer] In [employer] Address [address] [place] [address] Care Team Providers Care Butter Printer Name Role Phone Reji Castro MD Primary Care Provider [phone] Encounter Details Date Type Department Care Team (Late st Contact Info) Description 08/23/2021 Transcribed Document [facility] [place] [facility] [place] [address] ProviderDelvin MD [address] [place] [address] Social History Tobacco Use Types Packs/Day Years [...] Warfarin HPI: 56 y/o F presenting to [facility] with history of COPD, atrial [...] cefTRIAXone: 2 Gram, 100 mL/Hr, IV Piggyback, [id number]. citalopram: 40 mg, Oral, Daily. diphenhydrAMINE: 25 [...] you, Noy Garrett, PharmD PGY-1 Resident Pager #[phone] Electronically signed by [facility], [facility] Conversion Cementer Machine Applicator Cerner at 03/09/2023 8:59 PM CDT documented in this encounter Plan of Treatment Not on file documented as of this encounter Visit Diagnoses Not on filedocumented in this encounter Care Teams Butter Printer Relationship Specialty Start Date End Date Reji Castro MD [address] [place] [address] PCP - General Adolescent Medicine 10/02/22 documented as of this encounter
--- OUTSIDE RECORDS SUMMARY | 2025-05-07 13:07 | XMS_ITS | Encounter Summary ---
Author Organization [employer] Address [address] [place] [address] Care Team Providers Care Splitter Head Name Role Phone Reji Castro MD Primary Care Provider [phone] Encounter Details Date Type Department Care Team (Late st Contact Info) Description 08/13/2021 Transcribed Document [facility] [place] [address] [place] [address] ProviderDelvin MD [address] [place] [address] Social History Tobacco Use Types Packs/Day Years [...] Author: CHELI BEASLEY MD-CAR Basic Information Primary Electric Track Switch Maintainer: Dr. Delmar Geronimo Drum Plater: MD Nestor Subjective NAD Health Status Current [...] mL 700 mg 14 mL, IV Piggyback, [id number] DAPTOmycin + NaCl 0.9% 50 mL 700 mg 14 mL, IV Piggyback, [id number] famotidine 20 mg tab 20 mg 1 [...] of motion, Normal strength. Integumentary: Warm, Dry, [place]. Neurologic: Alert, Oriented. Psychiatric: Cooperative, Appropriate mood & affect. Results Review AUG 13 05:19 136 103 H 50 / 102 4.5 30 H 1.60 \ AUG 13 05:19 \ L 8.5 / 5.5 197 / L 28.7 \ Cardiac Markers (Current Encounter/Past 24 Hours) CK 87 Units/Liter 08/13/2021 05:53 ProBNP 587 pg/mL HI 08/13/2021 05:58 Radiology Results (Last 48 hours) [id number] -- 08/11/2021 21:21 CR Chest 1 Vw [...] mechan MV, 4+ TR, no vegetation. Admitted [facility] 07/12, Negative CHUCHO, TTE for vegetation [...] mechanical causes of hemolysis. Obtain records from [facility]. Check haptoglobin, LDH, reticulocyte count. Continue other current CV meds. Electronically signed by Lanny [facility] Conversion Narcotics And Vice Detective Cerner at 03/09/2023 8:50 PM CDT documented in this encounter Plan of Treatment Not on file documented as of this encounter Visit Diagnoses Not on filedocumented in this encounter Care Teams Splitter Head Relationship Specialty Start Date End Date Reji Castro MD [address] [place] [address] PCP - General Adolescent Medicine 10/02/22 documented as of this encounter
--- OUTSIDE RECORDS SUMMARY | 2025-05-07 13:07 | XMS_ITS | Encounter Summary ---
Author Organization [employer] In [employer] Address [address] [place] [address] Care Team Providers Care Financial Services Auditor Name Role Phone Reji Castro MD Primary Care Provider [phone] Encounter Details Date Type Department Care Team (Late st Contact Info) Description 08/24/2021 Transcribed Document [facility] [place] Medicine [facility] [place] [address] ProviderDelvin MD [address] [place] [address] Social History Tobacco Use Types Packs/Day Years Used Date Smoking Tobacco: Never Assessed Comments Unknown Sex and Gender Information Value Date Recorded Sex Assigned at Not on file Legal Sex Female 4:32 PM CDT Gender Identity Not on file Sexual Orientation Not on file documented as of this encounter Miscellaneous Notes * Cerner Conversion Note - Delvin Celestin MD - 08/24/2021 4:12 PM CDT Patient: IRINA TAMAYO Age: 56 years Sex: Female : 1965 Associated Diagnoses: None Author: Noy Garrett, Resident Pharmacist Pharmacy Consult - Warfarin HPI: 56 y/o F presenting to [facility] with history of COPD, atrial fibrillation, [...] cefTRIAXone: 2 Gram, 100 mL/Hr, IV Piggyback, [id number]. citalopram: 40 mg, Oral, Daily. diphenhydrAMINE: 25 [...] you, Noy Garrett, PharmD PGY-1 Resident Pager #[phone] Electronically signed by Lanny [facility] Conversion Acute Care Registered Nurse Cerner at 03/09/2023 8:39 PM CDT documented in this encounter Plan of Treatment Not on file documented as of this encounter Visit Diagnoses Not on filedocumented in this encounter Care Teams Financial Services Auditor Relationship Specialty Start Date End Date Reji Castro MD [address] [place] [address] PCP - General Adolescent Medicine 10/02/22 documented as of this encounter
--- OUTSIDE RECORDS SUMMARY | 2025-05-07 13:07 | XMS_ITS | Encounter Summary ---
Author Organization [employer] Address [address] [place] [address] Care Team Providers Care Sponge Clipper Name Role Phone Reji Castro MD Primary Care Provider + [phone] Encounter Details Date Type Department Care Team (Late st Contact Info) Description 08/13/2021 Transcribed Document [facility] Family Medicine [facility] [place] [address] ProviderDelivn [place] [address] Social History Tobacco Use Types Packs/Day Years [...] 180 units of blood due to anemia, tonsil hospital is why she has a port. [...] these transfusions about 3 years ago at [facility]. Last month she developed fever, headache, nausea, and was admitted to [facility]. CHUCHO/TTE at that time showed possible bacteria on the tip of her port. She was treated with PO antibiotics with resolution of symptoms and was discharged home with no plans for port removal. She reports a few days ago she again had headache and nausea, this time without fever. She presented to the emergency department at [facility] with blood cultures drawn which were supposedly positive for staph epi. She was subsequently told to come to [facility] ED for ID consultation. Review of [...] Diagnostic Results Radiology Results (Last 48 hours) [id number] -- 08/11/2021 21:21 CR Chest 1 Vw [...] 08/13/2021 06:13 Blood Urea Nitrogen 50 mg/dL TN 08/13/2021 06:13 Glucose Level 102 mg/dL 08/13/2021 06:13 Albumin Level 3.9 Gram/dL 08/13/2021 06:13 Bilirubin Total 0.5 mg/dL 08/13/2021 06:13 Calcium Level 9.1 mg/dL 08/13/2021 06:13 Electronically signed by [facility], [facility] Conversion Right Of Way Worker Cerner at 03/09/2023 8:43 PM CDT documented in this encounter Plan of Treatment Not on file documented as of this encounter Visit Diagnoses Not on filedocumented in this encounter Care Teams Sponge Clipper Relationship Specialty Start Date End Date Reji Castro MD [address] [place] [id number] PCP - General Adolescent Medicine 10/02/22 documented as of this encounter
--- OUTSIDE RECORDS SUMMARY | 2025-05-07 13:07 | XMS_ITS | Encounter Summary ---
Author Organization [employer] Address [address] [place] [address] Care Team Providers Care Lead Electrical Controls Engineer Name Role Phone Reji Castro MD Primary Care Provider [phone] Encounter Details Date Type Department Care Team (Late st Contact Info) Description 08/23/2021 Transcribed Document [facility] [place] Family Medicine [address] [place] [address] ProviderDelvin MD [address] [place] [address] Social History Tobacco Use Types Packs/Day Years [...] 08/23/2021 18:47 EDT Electronically signed by Lanny [facility] Conversion Special Events Planner Cerner at 03/09/2023 8:57 PM CDT documented in this encounter Plan of Treatment Not on file documented as of this encounter Visit Diagnoses Not on filedocumented in this encounter Care Teams Lead Electrical Controls Engineer Relationship Specialty Start Date End Date Reji Castro MD [address] [place] [id number] PCP - General Adolescent Medicine 10/02/22 documented as of this encounter
--- OUTSIDE RECORDS SUMMARY | 2025-05-07 13:07 | XMS_ITS | Encounter Summary ---
Author Organization [employer] Address [address] [place] [address] Care Team Providers Care Vegetable Worker Name Role Phone Reji Castro MD Primary Care Provider + [phone] Encounter Details Date Type Department Care Team (Late st Contact Info) Description 08/13/2021 Transcribed Document [facility] [place] [address] [place] [address] ProviderDelvin MD [address] [place] [address] Social History Tobacco Use Types Packs/Day Years [...] mg, 14 mL, 128 mL/Hr, IV Piggyback, [id number] Dextrose 50% injection: 12.5 Gram, IV Push, [...] improvement time 35mins Electronically signed by Interface, [facility] Conversion Supervisor [employer] Can Supply Cerner at 03/09/2023 9:02 PM CDT documented in this encounter Plan of Treatment Not on file documented as of this encounter Visit Diagnoses Not on filedocumented in this encounter Care Teams Vegetable Worker Relationship Specialty Start Date End Date Reji Castro MD [address] [place] [id number] PCP - General Adolescent Medicine 10/02/22 documented as of this encounter
--- OUTSIDE RECORDS SUMMARY | 2025-05-07 13:07 | XMS_ITS | Encounter Summary ---
Author Organization [employer] Address [address] [place] [address] Care Team Providers Care Jail Keeper Name Role Phone Reji Castro MD Primary Care Provider [phone] Encounter Details Date Type Department Care Team (Late st Contact Info) Description 08/24/2021 Transcribed Document [facility] Radiology [address] [place] [address] Loren Solorzano MD [address] [place] [address] [address] [place] [id number] Social History Tobacco Use Types Packs/Day Years [...] cefTRIAXone: 2 Gram, 100 mL/Hr, IV Piggyback, [id number] diphenhydrAMINE: 25 mg, Oral, Q6H, PRN: Itching [...] Oral, BID cefTRIAXone 2 Gram, IV Piggyback, [id number] citalopram 20 mg tab 40 mg 2 [...] Bioprosthetic mitral valve replacement / SNOMED CT 609235636 / Confirmed Chronic kidney disease / SNOMED CT 2371484497 / Confirmed COPD - Chronic obstructive pulmonary disease / SNOMED CT 502523191 / Confirmed History of obstructive sleep apnea / IMO 35294558 / Confirmed HLD - Hyperlipidemia / SNOMED CT 316100578 / Confirmed HTN - Hypertension / SNOMED CT 4170176066 / Confirmed Canceled: Atrial fibrillation / SNOMED CT 67711348, Active Problems (25) AIHA (autoimmune hemolytic anemia) [...] 26.6 \ Radiology Results (Last 48 hours) [id number] -- 08/11/2021 21:21 CR Chest 1 Vw [...] Hold home meds SSI #Depression Celexa #Pain [place] 10 mg every 6 hours as needed CODE STATUS. Full code Dispo: Given patient with history of multiple blood transfusion we will keep patient in the hospital on heparin drip and Coumadin till INR therapeutic need IV abx, at least until 09/08. Discussed with housing case manager. and pharmcy Time spent 25 minutes documented in this encounter Plan of Treatment Not on file documented as of this encounter Visit Diagnoses Not on filedocumented in this encounter Care Teams Jail Keeper Relationship Specialty Start Date End Date Reji Castro MD [address] [place] [id number] PCP - General Adolescent Medicine 10/02/22 documented as of this encounter
--- OUTSIDE RECORDS SUMMARY | 2025-05-07 13:07 | XMS_ITS | Referral Summary ---
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
--- OUTSIDE RECORDS SUMMARY | 2025-05-07 13:07 | XMS_ITS | Encounter Summary ---
Author Organization [employer] Address [address] [place] [address] Care Team Providers Care Quality Systems Specialist Name Role Phone Reji Castro MD Primary Care Provider + [phone] Encounter Details Date Type Department Care Team (Late st Contact Info) Description 08/17/2021 Transcribed Document [facility] Family Medicine [facility] [place] [address] ProviderDelvin MD [address] [place] [address] Social History Tobacco Use Types Packs/Day Years [...] Venofer, patient state she can have it. Electronically signed by [employer]version [employer] Supervisor Cerner at 03/09/2023 8:38 PM CDT documented in this encounter Plan of Treatment Not on file documented as of this encounter Visit Diagnoses Not on filedocumented in this encounter Care Teams Quality Systems Specialist Relationship Specialty Start Date End Date Reji Castro MD [address] [place] [id number] PCP - General Adolescent Medicine 10/02/22 documented as of this encounter
--- OUTSIDE RECORDS SUMMARY | 2025-05-07 13:07 | XMS_ITS | Encounter Summary ---
Author Organization [employer] Address [address] [place] [address] Care Team Providers Care Supervising Fire Marshal Name Role Phone Reji Castro MD Primary Care Provider + [phone] Encounter Details Date Type Department Care Team (Late st Contact Info) Description 08/13/2021 Transcribed Document [facility] [place] [address] ProviderDelvin MD [address] [place] [address] Social History Tobacco Use Types Packs/Day Years [...] Warfarin HPI: 56 y/o F presenting to [facility] with history of COPD, [...] Encounter/Past 24 Hours) Creatinine Level 1.60 mg/dL IA 08/13/2021 06:13 Bun/Creatinine 31.2 IA 08/13/2021 06:13 Est. CrCl: 61 mL/min Intake [...] questions. Thank you, Andrea Moraes, PharmD PGY1 [employer] Pager: [phone], Ext. [phone] Electronically signed by Lanny [facility] Conversion Family Practice Nurse Practitioner Cerner at 03/09/2023 8:40 PM CDT documented in this encounter Plan of Treatment Not on file documented as of this encounter Visit Diagnoses Not on filedocumented in this encounter Care Teams Supervising Fire Marshal Relationship Specialty Start Date End Date Reji Castro MD [address] [place] [id number] PCP - General Adolescent Medicine 10/02/22 documented as of this encounter
--- OUTSIDE RECORDS SUMMARY | 2025-05-07 13:07 | XMS_ITS | Encounter Summary ---
Author Organization [employer] Address [address] [place] [address] Care Team Providers Care Telegraph Office Telephone Clerk Name Role Phone Reji Castro MD Primary Care Provider [phone] Encounter Details Date Type Department Care Team (Late st Contact Info) Description 08/18/2021 Transcribed Document [facility] Radiology [address] [place] [address] Loren Solorzano MD [address] [place] [address] [address] [place] [id number] Social History Tobacco Use Types Packs/Day Years [...] Bioprosthetic mitral valve replacement / SNOMED CT 262044506 / Confirmed Chronic kidney disease / SNOMED CT 1509593249 / Confirmed COPD - Chronic obstructive pulmonary disease / SNOMED CT 102075212 / Confirmed History of obstructive sleep apnea / IMO 10645002 / Confirmed HLD - Hyperlipidemia / SNOMED CT 232471229 / Confirmed HTN - Hypertension / SNOMED CT 8335436767 / Confirmed Canceled: Atrial fibrillation / SNOMED CT 92793099, Active Problems (25) AIHA (autoimmune hemolytic anemia) [...] Apical HR 75 (AUG 17 20:10) 75 ([facility] [place]:10[place] 75 [place] [place]:10) Mon HR 63 (AUG 18 06:) 63 (AUG 18 06:) 84 (AUG 17 18:12) Resp Rate 18 (AUG 18:) 16 (AUG 17:) 18 (AUG 18 06:29) SBP 105 (AUG 18 06:) 101 (AUG 17 22:) 107 ([facility] [place] 02:02) DBP L 53 (AUG 18:) L 45 (AUG 17 18:12) 61 (AUG 17:) MAP 77 (AUG 18 06:29) 70 ([facility] [place] 18:12) 78 ([facility] [place] 22:27) SpO2 95 (AUG 18 06:29) L [...] 50 mL 700 mg, IV Piggyback, Inj, U32QHwk, infuse over 30 Minute(s), Routine, Start 08/14/21 [...] Hold home meds SSI #Depression Celexa #Pain [place] 10 mg every 6 hours as needed [...] on filedocumented in this encounter Care Teams Telegraph Office Telephone Clerk Relationship Specialty Start Date End Date Reji Castro MD [address] [place] [id number] PCP - General Adolescent Medicine 10/02/22 documented as of this encounter
--- OUTSIDE RECORDS SUMMARY | 2025-05-07 13:07 | XMS_ITS | Encounter Summary ---
Author Organization [employer] Address [address] [place] [address] Care Team Providers Care Iron Launder Operator Name Role Phone Reji Castro MD Primary Care Provider [phone] Encounter Details Date Type Department Care Team (Late st Contact Info) Description 08/24/2021 Transcribed Document [facility] Family Medicine [address] [place], [place] [id number] ProviderDelvin MD [address] [place] [address] Social History Tobacco Use Types Packs/Day Years [...] cefTRIAXone: 2 Gram, 100 mL/Hr, IV Piggyback, [id number] diphenhydrAMINE: 25 mg, Oral, Q6H, PRN: Itching [...] Oral, BID cefTRIAXone 2 Gram, IV Piggyback, [id number] citalopram 20 mg tab 40 mg 2 [...] Bioprosthetic mitral valve replacement / SNOMED CT 545651154 / Confirmed Chronic kidney disease / SNOMED CT 8104955219 / Confirmed COPD - Chronic obstructive pulmonary disease / SNOMED CT 325854184 / Confirmed History of obstructive sleep apnea / IMO 44925264 / Confirmed HLD - Hyperlipidemia / SNOMED CT 763964651 / Confirmed HTN - Hypertension / SNOMED CT 7437914880 / Confirmed Canceled: Atrial fibrillation / SNOMED CT 19202672, Active Problems (25) AIHA (autoimmune hemolytic anemia) [...] GFR adjust medications. Electronically signed by Lanny, [facility] Conversion Supervisor [employer] Can Supply Cerner at 03/09/2023 8:38 PM CDT documented in this encounter Plan of Treatment Not on file documented as of this encounter Visit Diagnoses Not on filedocumented in this encounter Care Teams Iron Launder Operator Relationship Specialty Start Date End Date Reji Catsro MD [address] [place] [id number] PCP - General Adolescent Medicine 10/02/22 documented as of this encounter
--- OUTSIDE RECORDS SUMMARY | 2025-05-07 13:07 | XMS_ITS | Encounter Summary ---
Author Organization [employer] Address [address] [place] [address] Care Team Providers Care Medical Cost Consultant Name Role Phone Reji Castro MD Primary Care Provider + [phone] Encounter Details Date Type Department Care Team (Late st Contact Info) Description 08/17/2021 Transcribed Document [facility] [address] [place] [address] ProviderDelvin MD [address] [place] [address] Social History Tobacco Use Types Packs/Day Years [...] 08/17/2021 6:06 EDT Electronically signed by Lanny [facility] Conversion Product Development Consultant Marisa at 03/09/2023 8:53 PM CDT documented in this encounter Plan of Treatment Not on file documented as of this encounter Visit Diagnoses Not on filedocumented in this encounter Care Teams Medical Cost Consultant Relationship Specialty Start Date End Date Reji Castro MD [address] [place] [id number] PCP - General Adolescent Medicine 10/02/22 documented as of this encounter
--- OUTSIDE RECORDS SUMMARY | 2025-05-07 13:07 | XMS_ITS | Encounter Summary ---
Author Organization [employer] Address [address] [place] [address] Care Team Providers Care Allocation Analyst Name Role Phone Reji Castro MD Primary Care Provider + [phone] Encounter Details Date Type Department Care Team (Late st Contact Info) Description 08/13/2021 Transcribed Document [facility] [place] [address] [place] [address] ProviderDelvin MD [address] [place] [address] Social History Tobacco Use Types Packs/Day Years [...] on filedocumented in this encounter Care Teams Allocation Analyst Relationship Specialty Start Date End Date Reji Castro MD [address] [place] [phone] PCP - General Adolescent Medicine 10/02/22 documented as of this encounter
--- OUTSIDE RECORDS SUMMARY | 2025-05-07 13:07 | XMS_ITS | Encounter Summary ---
Author Organization [employer] Address [address] [place] [address] Care Team Providers Care Barrel Header Name Role Phone Reji Castro MD Primary Care Provider [phone] Encounter Details Date Type Department Care Team (Late st Contact Info) Description 08/23/2021 Transcribed Document [facility] [place] Medicine [address] [place] [address] ProviderDelvin MD [address] [place] [address] Social History Tobacco Use Types Packs/Day Years Used Date Smoking Tobacco: Never Assessed Comments Unknown Sex and Gender Information Value Date Recorded Sex Assigned at Not on file Legal Sex Female 4:32 PM CDT Gender Identity Not on file Sexual Orientation Not on file documented as of this encounter Miscellaneous Notes * Cerner Conversion Note - Historical ProviderMD - 08/23/2021 2:00 AM CDT Enrollment Management Vice President Details Entered On: 08/23/2021 2:15 EDT Performed On: 08/23/2021 2:00 EDT by Cecilia Lai, Iron Pourer-Student Nurse Order Details Transport Mode Order Detail : Wheelchair Isolation Precautions Order Detail : Standard Precautions Order Detail : 0 IV Order Detail : 1 Oxygen Order Detail : 0 Lift/Transfer : Independent Central Line Order Detail : Yes Room Service : Appropriate Arterial Line : No Patient Needs Meds Crushed/Liquid : No Cecilia Lai, Iron Pourer-Student Nurse - 08/23/2021 2:15 EDT documented in this encounter Plan of Treatment Not on file documented as of this encounter Visit Diagnoses Not on filedocumented in this encounter Care Teams Barrel Header Relationship Specialty Start Date End Date Reji Castro MD [address] [place] [id number] PCP - General Adolescent Medicine 10/02/22 documented as of this encounter
--- NOTE | 2025-05-07 13:35 | XR_ITS ---
FINAL REPORT CLINICAL HISTORY: Shortness of breath COMPARISON: 04/06/2025 FINDINGS: A single view of the chest was obtained. There is moderate cardiomegaly. There is a biventricular pacer. Sternotomy wires are noted. The mediastinum is otherwise normal. There is a chest port with the tip in the SVC. There is no focal infiltrate or edema. There are mild chronic changes at the lung bases. There are no pleural effusions. There is no pneumothorax. There is no osseous abnormality. IMPRESSION: No acute cardiopulmonary process. Reviewed, Interpreted and Dictated by Urbano Gracia MD Transcribed by Leonela Watkins Authenticated and [facility]
--- NOTE | 2025-05-07 13:37 | [facility].EDCP ---
Discharge Plan Disposition Patient Disposition: Home, Self-Care Condition: Good Prescriptions Prescriptions: No Action oxycodone-acetaminophen [Percocet] 10-325 mg tablet 1 tab PO QID PRN (Reason: Pain, Moderate) alprazolam [Xanax] 0.5 mg tablet 0.5 mg PO TID PRN (Reason: Anxiety) potassium chloride 20 mEq tablet,ER particles/crystals 20 meq PO BID duloxetine 60 mg capsule,delayed release(DR/EC) 60 mg PO HS Patient Comments: TAKE (1) CAPSULE BY MOUTH ONCE A DAY. (DME) Dexcom G6 Transmitter Device See Rx Instructions .ROUTE .MEDSUPPLY Qty: 1 Patient Comments: USE DIRECTED. Rx Instructions: As directed (DME) pen needle, diabetic 32 gauge x 5/32 needle See Rx Instructions .ROUTE .MEDSUPPLY Qty: 1200 Patient Comments: USE TWICE DAILY Rx Instructions: As directed dexlansoprazole 60 mg capsule,biphase delayed releas 60 mg PO DAILY Patient Comments: TAKE (1) CAPSULE BY MOUTH ONCE A DAY. (DME) Dexcom G6 Sensor Device See Rx Instructions .ROUTE .MEDSUPPLY Qty: 1 Patient Comments: CHANGE EVERY 10 DAYS DIRECTED. Rx Instructions: As directed (DME) Dexcom G6 Certified Low Vision Therapist Misc See Rx Instructions .ROUTE .MEDSUPPLY Qty: 1 Patient Comments: USE DIRECTED. Rx Instructions: As directed metolazone 2.5 mg tablet 2.5 mg PO DAILY PRN (Reason: edema) amiodarone 200 mg tablet 200 mg PO DAILY Qty: 90 3RF levothyroxine 25 MCG tablet 25 mcg PO DAILY calcitriol 0.25 mcg Capsule 0.25 mcg PO DAILY Soliqua 100/33 3 ML insulin pen 60 units SQ DAILY febuxostat 40 mg tablet 40 mg PO DAILY insulin glargine [Lantus Solostar U-100 Insulin] 100 unit/mL (3 mL) insulin pen 14 unit SQ HS Patient Comments: INJECT 10 UNITS SUB-Q AT BEDTIME. EACH PEN EXPIRES 28 DAYS AFTER FIRST USE. Jardiance 10 mg tablet 10 mg PO DAILY Qty: 30 1RF warfarin 4 mg tablet 2 mg PO DAILY 30 Days Qty: 0 0RF spironolactone 50 mg tablet 50 mg PO DAILY 30 Days Qty: 180 3RF estradiol [Estrace] 1 mg Tablet 1 mg PO DAILY 30 Days Qty: 30 0RF metoprolol succinate 25 mg tablet extended release 24 hr 50 mg PO DAILY 30 Days Qty: 60 0RF bumetanide 2 mg tablet 2 mg PO BID Qty: 60 5RF Referrals Follow up/Referrals: Reji Castro MD [Primary Care Provider, Internal Medicine] - See instructions Activity Restrictions/Add. Instructions Additional Instructions/Restrictions: Please be on the look out for call from [facility], please follow-up with [facility] in the upcoming days/weeks, to schedule your cardiac MRI, please return to the emergency department with any worsening signs or symptoms, please continue take all your medications as prescribed, utilize oxygen as needed at home, please continue to use your CPAP machine. Clinical Impressions Clinical Impression: HFrEF (heart failure with reduced ejection fraction) Dyspnea Qualifiers: Dyspnea type: dyspnea on exertion Qualified Code(s): R06.09 - Other forms of dyspnea Print Language Print Language: Occitan Discharge ED Provider: Lio Davidson HPI <BEATRIS Guardado - Last Filed: 05/07/25 15:58> General Chief Complaint: Shortness of Breath/Dyspnea Stated Complaint: sent by Dr. Castro soa edema in both legs Time Seen by Provider: 05/07/25 12:57 Mode of Arrival: Ambulatory Source of Information: Patient Description of Symptoms (Recalled from ER Triage Doc. by RN): Patient states she is having swelling and redness in bilateral lower extremities and shortness of breath. Patient states she was admitted a month ago, discharged home on 04/12/25, saw teamsite developer and PCP after but swelling and redness have gotten progressively worse. Patient states she had a venous doppler done that was negative. Was sent from Dr. Castro's office today. History of Present Illness HPI narrative: 60-year-old female presents to the emergency department with progressive shortness of breath fatigue, worsening on exertion, chest pressure at times is waxed and waned for 1 month, she discussed this with her PCP today in the office who recommended she come to the emergency department she also discussed this with teamsite developer as well as teamsite developer is been following. Of note, patient was admitted to the hospitalist service a month ago, discharged home on 04/12/2025, lower extremity swelling and redness have progressively gotten worse, patient had negative Doppler ultrasound ruled out DVT. Patient denies any fever or chills, denies any chest pain or chest pressure currently, denies any abdominal pain, admits to nausea currently, denies any abdominal pain, vomiting, no constipation no diarrhea no urinary type symptomatology, patient is a former smoker, no alcohol or drug use. Other past medical history is consistent with iron deficiency anemia/chronic disease anemia requiring multiple blood transfusions follows with hematology oncology for this, with indwelling port, anticoagulation therapy on warfarin with mechanical mitral valve, CKD stage III, pulmonary hypertension, T2DM, atrial fibrillation, cardiomyopathy of the restrictive type, hypertension, GERD, COPD, HFrEF. Of note patient been taking her medication as prescribed. Initial triage vitals are unremarkable. Per last note with cardiology, patient was slated to have cardiac MRI, however due to implantable pacemaker/mechanical valve, cardiac MRI at current hospital is incapable, possible pursuing transfer to [facility] facility with cardiac MRI capabilities with the patient's current mechanical hardware in the chest. Upon review of the patient's cardiology office visit, cardiac MRI with and without contrast, to rule out constrictive pericarditis versus amyloidosis, last EF was 15 to 20% on echocardiogram. Potential heart transplant candidate. Related Data Home Medications ?Medication ?Instructions ?Recorded ?Confirmed oxycodone-acetaminophen 10 mg-325 1 tab PO QID PRN Pain, Moderate 05/23/18 04/26/25 mg tablet (Percocet) alprazolam 0.5 mg tablet (Xanax) 0.5 mg PO TID PRN Anxiety 11/29/19 04/26/25 levothyroxine 25 mcg tablet 25 mcg PO DAILY 06/05/21 04/26/25 insulin glargine 100 60 units SQ DAILY 02/22/22 04/26/25 unit-lixisenatide 33 mcg/mL subcutaneous pen (Soliqua 100/33) febuxostat 40 mg tablet 40 mg PO DAILY 02/09/23 04/26/25 potassium chloride 20 mEq 20 meq PO BID 04/15/23 04/26/25 tablet,extended release(part/cryst) calcitriol 0.25 mcg capsule 0.25 mcg PO DAILY 10/30/23 04/26/25 duloxetine 60 mg capsule,delayed 60 mg PO HS 03/06/24 04/26/25 release insulin glargine 100 unit/mL (3 14 unit SQ HS 01/17/25 04/26/25 mL) subcutaneous pen (Lantus Solostar U-100 Insulin) blood-glucose sensor (Dexcom G6 #1 ea 04/05/25 04/26/25 Sensor device) blood-glucose transmitter (Dexcom #1 ea 04/05/25 04/26/25 G6 Transmitter device) blood-glucose,stone dresser,cont #1 ea 04/05/25 04/26/25 (Dexcom G6 Certified Low Vision Therapist) dexlansoprazole 60 mg 60 mg PO DAILY 04/05/25 04/26/25 capsule,biphase delayed release metolazone 2.5 mg tablet 2.5 mg PO DAILY PRN edema 04/05/25 04/26/25 pen needle, diabetic 32 gauge x #1,200 ea 04/05/25 04/26/25 Previous Rx's ?Medication ?Instructions ?Recorded empagliflozin 10 mg tablet 10 mg PO DAILY #30 tabs 07/17/24 (Jardiance) spironolactone 50 mg tablet 50 mg PO DAILY 30 days #180 tabs 01/05/25 warfarin 4 mg tablet 2 mg (1/2 x 4 mg) PO DAILY 30 days 01/05/25 #0 tabs amiodarone 200 mg tablet 200 mg PO DAILY #90 tabs 04/02/25 bumetanide 2 mg tablet 2 mg PO BID #60 tabs 04/12/25 estradiol 1 mg tablet (Estrace) 1 mg PO DAILY 30 days #30 tabs 04/12/25 metoprolol succinate 25 mg 50 mg (2 x 25 mg) PO DAILY 30 days 04/12/25 tablet,extended release 24 hr #60 tabs Allergies Allergy/AdvReac Type Severity Reaction Status Date / Time codeine (CODEINE) Allergy Unknown nausea, Verified 04/26/25 12:58 swelling Corticosteroids Allergy Unknown Unknown Verified 04/26/25 12:58 (Glucocorticoids) allergy (CORTICOSTEROIDS reaction (GLUCOCORTICOIDS)) NSAIDS (Non-Steroidal Allergy Unknown Other Verified 04/26/25 12:58 Anti-Inflamma rosuvastatin (From CRESTOR) Allergy Unknown Unknown Verified 04/26/25 12:58 allergy reaction theophylline (From DAVID-DUR) Allergy Unknown Unknown Verified 04/26/25 12:58 allergy reaction allopurinol Allergy Hives Verified 04/26/25 12:58 Iodinated Contrast Media AdvReac Severe shuts Verified 04/26/25 12:58 (IODINATED CONTRAST- ORAL kidneys AND IV DYE) down and bleeding buprenorphine (From BUPRENEX) AdvReac Intermediate Nausea Verified 04/26/25 12:58 levofloxacin (From Levaquin) AdvReac Other Verified 04/26/25 12:58 lisinopril AdvReac Cough Verified 04/26/25 12:58 prednisone AdvReac Unknown Verified 04/26/25 12:58 allergy reaction sacubitril (From Entresto) AdvReac Hypotension Verified 04/26/25 12:58 valsartan (From Entresto) AdvReac Hypotension Verified 04/26/25 12:58 PFS <BEATRIS Guardado - Last Filed: 05/07/25 15:58> [facility] Disclaimer: The information contained in this section may have been updated after the patient was seen, as this information can be updated by other users. 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 with INR goal of 2.5-3.5 Third degree heart block Junctional escape rhythm Current use of longterm anticoagulation Afib HFrEF (heart failure with reduced ejection fraction) Partial tear of tendon CHF (NYHA class III, ACC/AHA stage C) Atrial fibrillation, chronic COPD exacerbation CHF exacerbation Anemia Systolic CHF Typical angina Dyspnea Rib fracture Blood transfusion reaction Autoimmune hemolytic anemia Arthritis Hernia Sinus problem Rheumatic heart disease Hypothyroidism Polyarthralgia Pulmonary edema HLD (hyperlipidemia) HTN (hypertension) CAD (coronary artery disease) DM type 2 (diabetes mellitus, type 2) DVT (deep venous thrombosis) Cardiomyopathy Arrhythmia Liver disease Thyroid disease Valvular heart disease Hypertension Hyperlipidemia GERD (gastroesophageal reflux disease) COPD (chronic obstructive pulmonary disease) Class 1 obesity CKD (chronic kidney disease) stage 3, GFR 30-59 ml/min Coronary artery disease Congestive heart failure, NYHA class III NYHA class 3 acute on chronic systolic heart failure Diabetes mellitus Hypertensive heart disease CHF (congestive heart failure) Diastolic heart failure Tricuspid valve regurgitation Surgical History Presence of biventricular AICD History of mitral valve replacement with mechanical valve Mitral valve replaced History of colon resection H/O tubal ligation History of angioplasty History of renal stent History of ureteroscopy History of tubal ligation History of hernia repair History of cardiac catheterization Family History Other Breast cancer COPD (chronic obstructive pulmonary disease) Colon cancer Family history of acute heart failure Family history of hyperlipidemia Family history of hypertension Family history of myocardial infarction Hypertension Stroke Social History Smoking Status: Never smoker smoking status stop date: 01/09/2006 quit status: quit date established second hand exposure: Yes alcohol intake: never substance use type: denies use current occupational status: retired and disabled Travel in the last 8 weeks?: None adopted: No caregiver/support person: No foster care: No household members: significant other housing: house lives independently: Yes marital status: life partner education level: college service: No skilled nursing: No current occupational exposures/hazards: No sexually active: Yes how many partners: 1 are you practicing safe sex: Yes diet: diabetic well-balanced diet: about half the time caffeine: No eating out: rarely or never during the past year weight has: remained stable bhavya/mosque: Buddhist special bhavya needs: No agree to transfusion: Yes helmet use: No water heater temp set < 120 deg: Yes working smoke detector in home: Yes fire extinguisher in home: Yes carbon monox detector in home: Yes firearms in home: No do you feel safe at home: Yes victim of physical abuse: No victim of emotional abuse: No victim of sexual abuse: No would you like helpful sources: No Have you lived/traveled outside [place] in past 30 days?: No Contact w/someone who lives/traveled outside [place] past 30 days?: No Exposure to someone with infectious disease in past 14 days?: No Do you have a fever (greater than 100.4 F or 38 C)?: No Have you tested positive for COVID-19?: No Exposed to someone with COVID-19 in past 14 days?: No Do you have a sore throat?: No Do you have a cough?: No Do you have any weakness?: No Do you have any diarrhea?: No Are you experiencing any unusual bleeding?: No Do you have any muscle aches/pain?: No Do you have any abdominal pain?: No Are you experiencing loss of taste or smell?: No Other Medical History Have you received the Flu Vaccine for this season: No Have you received the Pneumonia Vaccine: Yes <BEATRIS Guardado - Last Filed: 05/07/25 15:58> ROS Obtained: Yes All systems reviewed & no additional complaints except as documented Physical Exam <BEATRIS Guardado - Last Filed: 05/07/25 15:58> General General appearance: alert and in no apparent distress Head Head exam: atraumatic and normocephalic Eye Eye exam: Present PERRL and EOMI ENT ENT exam: Present mucous membranes moist Neck Neck exam: Present normal inspection Chest Chest inspection: Present normal inspection and symmetric chest wall rise Respiratory Respiratory exam: Present normal lung sounds bilaterally; Absent respiratory distress Cardiovascular Cardiovascular exam: Present regular rate, normal rhythm, Pacemaker w/paced rhythm and other (MitraClick,/ongoing mitral mechanical valve) Abdominal Exam Abdominal exam: Present soft; Absent tenderness, guarding, rebound or rigidity Extremities Exam Extremities exam: Present normal inspection Neurological Exam Neurological exam: Present alert and oriented X3 Psychiatric Psychiatric exam: Present normal affect Skin Skin exam: Present warm, dry, erythema and other (Some chronic venous atrophic skin changes noted throughout the bilateral lower extremities, with tight skin/shiny skin appearance, with 1+ pitting edema bilaterally) HEART Score <Lio Davidson MD - Last Filed: 05/07/25 15:22> HEART Score HEART Score assessment performed?: No Critical Care <Lio Davidson MD - Last Filed: 05/07/25 15:22> Critical Care Time Critical Care Time: No Medical Decision Making <BEATRIS Guardado - Last Filed: 05/07/25 15:58> Medical Records Medical records reviewed: Yes I reviewed the patient's medical records. Jeancarlos Inquiry Pt receiving controlled substance: No Jeancarlos was queried for this patient: No Vital Signs Vital Signs: 05/07/25 12:54 05/07/25 13:00 05/07/25 14:00 Temperature 97.9 F Temperature Source Oral Pulse Rate 80 80 Pulse Rate [Right Radial] 81 Respiratory Rate 17 12 13 Blood Pressure 103/63 L 108/58 L Blood Pressure [Right Arm] 108/69 L Blood Pressure Mean [Right Arm] 82 Blood Pressure Source Blood Pressure Source [Right Arm] Automatic Cuff Blood Pressure Position Blood Pressure Position [Right Arm] Sitting 02 Sat by Pulse Oximetry 95 95 95 Oxygen Delivery Method Room Air Oxygen Flow Rate (LPM) 05/07/25 15:00 05/07/25 15:20 05/07/25 15:24 Temperature Temperature Source Pulse Rate 84 Pulse Rate [Right Radial] Respiratory Rate 15 Blood Pressure 107/81 L Blood Pressure [Right Arm] Blood Pressure Mean [Right Arm] Blood Pressure Source Blood Pressure Source [Right Arm] Blood Pressure Position Blood Pressure Position [Right Arm] 02 Sat by Pulse Oximetry 92 L 86 L 97 Oxygen Delivery Method Room Air Nasal Cannula Oxygen Flow Rate (LPM) 2 05/07/25 16:03 Temperature 98.7 F Temperature Source Oral Pulse Rate 81 Pulse Rate [Right Radial] Respiratory Rate 18 Blood Pressure 109/59 L Blood Pressure [Right Arm] Blood Pressure Mean [Right Arm] Blood Pressure Source Automatic Cuff Blood Pressure Source [Right Arm] Blood Pressure Position Supine Blood Pressure Position [Right Arm] 02 Sat by Pulse Oximetry Oxygen Delivery Method Room Air Oxygen Flow Rate (LPM) Lab Data Lab results reviewed: Yes I reviewed the patient's lab results. Labs: Lab Results 05/07/25 13:05: WBC 8.0, RBC 3.32 L, Hgb 8.8 L, Hct 29.1 L, MCV 87.7, MCH 26.5 L, MCHC 30.2 L, RDW 18.5 H, Plt Count 239, MPV 10.2, Neut % (Auto) 84.6 H, Lymph % (Auto) 2.5 L, [place] % (Auto) 10.0 H, Eos % (Auto) 2.0, Baso % (Auto) 0.5, Neut # (Auto) 6.7, Lymph # (Auto) 0.2 L, [place] # (Auto) 0.8, Eos # (Auto) 0.2, Baso # (Auto) 0.0, Total Counted 100, Neutrophils % (Manual) 85 H, Lymphocytes % (Manual) 4 L, Monocytes % (Manual) 9, Eosinophils % (Manual) 2, Platelet Estimate Normal, RBC Morphology Normal, PT 25.9 H, INR 2.50 H, APTT 34.0 H, Sodium 133 L, Potassium 3.5, Chloride 93 L, Carbon Dioxide 32 H, Anion Gap 11.5, BUN 72 H, Creatinine 1.70 H, Estimated Creat Clear 46, Estimated GFR 30 L, Est GFR ( Amer) 37 L, Glucose 155 H, Calcium 9.4, Magnesium 2.2, Total Bilirubin 1.3, AST 35, ALT 19, Alkaline Phosphatase 134 H, Troponin I < 0.01, NT-Pro-B Natriuret Pep 3810 H, Total Protein 7.5, Albumin 4.2, Globulin 3.3 H, Albumin/Globulin Ratio 1.3 05/07/25 13:51: Urine Color Yellow, Urine Appearance Clear, Urine pH 7.0, Ur Specific [place] 1.010, Urine Protein Negative, Urine Glucose (UA) Trace, Urine Ketones Negative, Urine Blood Negative, Urine Nitrate Negative, Urine Bilirubin Negative, Urine Urobilinogen 0.2, Ur Leukocyte Esterase Negative, Urine WBC None, Ur Squamous Epith Cells 5-10, Urine Bacteria None 05/07/25 15:34: Troponin I < 0.01 05/07/25 13:05 05/07/25 13:05 Response Orders (Tests/Meds): ED MEDICATIONS Discontinued Medications Generic Name Dose Route Start Last Admin Trade Name Moeq PRN Reason Stop Dose Admin Bumetanide 2 mg 05/07/25 14:38 05/07/25 15:01 Bumetanide 1mg/4ml Vial IV 05/07/25 14:39 2 mg ONCE ONE Administration Heparin Sodium (Porcine) 300 unit 05/07/25 16:10 05/07/25 16:11 Heparin Lock Flush 500 Units/5ml Syr IV 05/07/25 16:11 300 unit ONCE ONE Administration Heparin Sodium (Porcine) 300 unit 05/07/25 16:10 05/07/25 16:11 Heparin Lock Flush 500 Units/5ml Syr IV 05/07/25 16:11 Not Given ONCE ONE ORDERS Category Date Time Status CT chest wo con Stat Cat Scan 05/07/25 14:24 Completed XR chest portable Stat Exams 05/07/25 13:35 Completed Complete Blood Count Auto Diff Stat Lab 05/07/25 13:05 Completed Comprehensive Metabolic Panel Stat Lab 05/07/25 13:05 Completed Magnesium Stat Lab 05/07/25 13:05 Completed NT Pro Brain Natriuretic Pep. Stat Lab 05/07/25 13:05 Completed PT INR [Prothrombin Time INR] Stat Lab 05/07/25 13:05 Completed PTT [Activated Partial Thrombo Time] Stat Lab 05/07/25 13:05 Completed Troponin I Q3H Lab 05/07/25 15:34 Completed Troponin I Stat Lab 05/07/25 13:05 Completed Urinalysis and Microscopic Stat Lab 05/07/25 13:51 Completed MDM Narrative Medical Decision Narrative: 60-year-old female presents to the emergency department with multiple medical complaints, see HPI for detail past medical history, differential diagnosis include but not limited to, acute on chronic CHF exacerbation, decompensated heart failure, pulmonary edema/pulmonary hypertension, peripheral artery disease, cardiac arrhythmia, electrolyte disturbance, ACS among others. I discussed patient case with attending physician Dr. Davidson Will obtain basic laboratory studies, magnesium level proBNP PT/INR, PTT, troponin, urinalysis, CXR, EKG CBC is notable for erythrocyte opinion at 3.32, hemoglobin is decreased at 8.8 hematocrit is decreased 29.1, MCV within normal limits, appears to be in the patient's baseline anemia. Coagulation studies are notable for a PT which is elevated at 25.9, INR is around 2.5, and PTT is minimally elevated at 34. CMP is notable for mild hyponatremia at 133, BUN is mildly elevated at 72, creatinine is mildly elevated at 1.7, GFR 30, this appears to be an acute on chronic kidney injury, corresponding with the patient's CKD, not too far from the patient's baseline. Troponin initially is within normal limits at less than 0.01, proBNP is significantly elevated at 3810. UA is notable for negative leukocyte esterase, negative nitrites. Will obtain CT chest without contrast to further evaluate the concerning findings of pulmonary edema versus pleural effusion on the patient's chest x-ray. I discussed this patient's case with the teamsite developer nurse practitioner Celina Back at approximately 2:26 PM, she will contact Dr. Stuart patient's primary teamsite developer for neck step/recommendations on the patient. I discussed this patient's case yet again with the teamsite developer nurse practitioner Celina Back at approximately 2:32 PM, she discussed this with Dr. Stuart, he recommended if feasible attempted to get the patient transferred to [facility] so she can undergo cardiac MRI with and without contrast and potential heart transplant consultation. Will give 2 mg IV Bumex for pheresis, as well as have nursing staff perform walk test. I reviewed the patient's chest x-ray along with corresponding radiologic report, no acute cardiopulmonary process. Lio Davidson: I was consulted by the EZEQUIEL, and we discussed the complexity of the problems being addressed. I approved the treatment and management plan for this patient's care in the emergency department, thus performing a substantive portion of the medical decision making. I agree with initial workup and resuscitation open disposition pending at time of transfer of care to the oncoming physician, Dr. Johnson. I discussed this patient's case with Dr. Medellin the transfer physician at approximately 3:35 PM, discussed this patient's case with teamsite developer, who recommends cardiac MRI with and without contrast, will be set up at [facility] at outpatient sometime next week, no need for emergent transfer at this time. Discussed these recommendations/results with the patient at the bedside, patient has at home oxygen as needed, up to 2 L as needed, patient's proBNP and lower extremity edema have actually improved since previous, not in acute decompensated heart failure/exacerbation at this time, suspect progressively worsening heart failure in the setting of decreased ejection fraction, patient will be scheduled for cardiac MRI with and without contrast [facility] next week, I instructed the patient to be on the look out for this phone call, I gave the patient strict ED return precautions, patient voiced understanding and agreed with current treatment plan/discharge plan, was also notified the patient does utilize CPAP at home. Recommend he continue with these therapies and all of her medications as prescribed. Patient voiced understanding and agreed with the current treatment plan/discharge plan. <Lio Davidson MD - Last Filed: 05/07/25 15:22> Vital Signs Vital Signs: 05/07/25 12:54 05/07/25 13:00 05/07/25 14:00 Temperature 97.9 F Temperature Source Oral Pulse Rate 80 80 Pulse Rate [Right Radial] 81 Respiratory Rate 17 12 13 Blood Pressure 103/63 L 108/58 L Blood Pressure [Right Arm] 108/69 L Blood Pressure Mean [Right Arm] 82 Blood Pressure Source Blood Pressure Source [Right Arm] Automatic Cuff Blood Pressure Position Blood Pressure Position [Right Arm] Sitting 02 Sat by Pulse Oximetry 95 95 95 Oxygen Delivery Method Room Air Oxygen Flow Rate (LPM) 05/07/25 15:00 05/07/25 15:20 05/07/25 15:24 Temperature Temperature Source Pulse Rate 84 Pulse Rate [Right Radial] Respiratory Rate 15 Blood Pressure 107/81 L Blood Pressure [Right Arm] Blood Pressure Mean [Right Arm] Blood Pressure Source Blood Pressure Source [Right Arm] Blood Pressure Position Blood Pressure Position [Right Arm] 02 Sat by Pulse Oximetry 92 L 86 L 97 Oxygen Delivery Method Room Air Nasal Cannula Oxygen Flow Rate (LPM) 2 05/07/25 16:03 Temperature 98.7 F Temperature Source Oral Pulse Rate 81 Pulse Rate [Right Radial] Respiratory Rate 18 Blood Pressure 109/59 L Blood Pressure [Right Arm] Blood Pressure Mean [Right Arm] Blood Pressure Source Automatic Cuff Blood Pressure Source [Right Arm] Blood Pressure Position Supine Blood Pressure Position [Right Arm] 02 Sat by Pulse Oximetry Oxygen Delivery Method Room Air Oxygen Flow Rate (LPM) Lab Data Labs: Lab Results 05/07/25 13:05: WBC 8.0, RBC 3.32 L, Hgb 8.8 L, Hct 29.1 L, MCV 87.7, MCH 26.5 L, MCHC 30.2 L, RDW 18.5 H, Plt Count 239, MPV 10.2, Neut % (Auto) 84.6 H, Lymph % (Auto) 2.5 L, [place] % (Auto) 10.0 H, Eos % (Auto) 2.0, Baso % (Auto) 0.5, Neut # (Auto) 6.7, Lymph # (Auto) 0.2 L, [place] # (Auto) 0.8, Eos # (Auto) 0.2, Baso # (Auto) 0.0, Total Counted 100, Neutrophils % (Manual) 85 H, Lymphocytes % (Manual) 4 L, Monocytes % (Manual) 9, Eosinophils % (Manual) 2, Platelet Estimate Normal, RBC Morphology Normal, PT 25.9 H, INR 2.50 H, APTT 34.0 H, Sodium 133 L, Potassium 3.5, Chloride 93 L, Carbon Dioxide 32 H, Anion Gap 11.5, BUN 72 H, Creatinine 1.70 H, Estimated Creat Clear 46, Estimated GFR 30 L, Est GFR ( Amer) 37 L, Glucose 155 H, Calcium 9.4, Magnesium 2.2, Total Bilirubin 1.3, AST 35, ALT 19, Alkaline Phosphatase 134 H, Troponin I < 0.01, NT-Pro-B Natriuret Pep 3810 H, Total Protein 7.5, Albumin 4.2, Globulin 3.3 H, Albumin/Globulin Ratio 1.3 05/07/25 13:51: Urine Color Yellow, Urine Appearance Clear, Urine pH 7.0, Ur Specific [place] 1.010, Urine Protein Negative, Urine Glucose (UA) Trace, Urine Ketones Negative, Urine Blood Negative, Urine Nitrate Negative, Urine Bilirubin Negative, Urine Urobilinogen 0.2, Ur Leukocyte Esterase Negative, Urine WBC None, Ur Squamous Epith Cells 5-10, Urine Bacteria None 05/07/25 15:34: Troponin I < 0.01 Response Orders (Tests/Meds): ED MEDICATIONS Discontinued Medications Generic Name Dose Route Start Last Admin Trade Name Freq PRN Reason Stop Dose Admin Bumetanide 2 mg 05/07/25 14:38 05/07/25 15:01 Bumetanide 1mg/4ml Vial IV 05/07/25 14:39 2 mg ONCE ONE Administration Heparin Sodium (Porcine) 300 unit 05/07/25 16:10 05/07/25 16:11 Heparin Lock Flush 500 Units/5ml Syr IV 05/07/25 16:11 300 unit ONCE ONE Administration Heparin Sodium (Porcine) 300 unit 05/07/25 16:10 05/07/25 16:11 Heparin Lock Flush 500 Units/5ml Syr IV 05/07/25 16:11 Not Given ONCE ONE ORDERS Category Date Time Status CT chest wo con Stat Cat Scan 05/07/25 14:24 Completed XR chest portable Stat Exams 05/07/25 13:35 Completed Complete Blood Count Auto Diff Stat Lab 05/07/25 13:05 Completed Comprehensive Metabolic Panel Stat Lab 05/07/25 13:05 Completed Magnesium Stat Lab 05/07/25 13:05 Completed NT Pro Brain Natriuretic Pep. Stat Lab 05/07/25 13:05 Completed PT INR [Prothrombin Time INR] Stat Lab 05/07/25 13:05 Completed PTT [Activated Partial Thrombo Time] Stat Lab 05/07/25 13:05 Completed Troponin I Q3H Lab 05/07/25 15:34 Completed Troponin I Stat Lab 05/07/25 13:05 Completed Urinalysis and Microscopic Stat Lab 05/07/25 13:51 Completed MDM Narrative Medical Decision Narrative: 60-year-old female presents to the emergency department with multiple medical complaints, see HPI for detail past medical history, differential diagnosis include but not limited to, acute on chronic CHF exacerbation, decompensated heart failure, pulmonary edema/pulmonary hypertension, peripheral artery disease, cardiac arrhythmia, electrolyte disturbance, ACS among others. I discussed patient case with attending physician Dr. Davidson Will obtain basic laboratory studies, magnesium level proBNP PT/INR, PTT, troponin, urinalysis, CXR, EKG CBC is notable for erythrocyte opinion at 3.32, hemoglobin is decreased at 8.8 hematocrit is decreased 29.1, MCV within normal limits, appears to be in the patient's baseline anemia. Coagulation studies are notable for a PT which is elevated at 25.9, INR is around 2.5, and PTT is minimally elevated at 34. CMP is notable for mild hyponatremia at 133, BUN is mildly elevated at 72, creatinine is mildly elevated at 1.7, GFR 30, this appears to be an acute on chronic kidney injury, corresponding with the patient's CKD, not too far from the patient's baseline. Troponin initially is within normal limits at less than 0.01, proBNP is significantly elevated at 3810. UA is notable for negative leukocyte esterase, negative nitrites. Will obtain CT chest without contrast to further evaluate the concerning findings of pulmonary edema versus pleural effusion on the patient's chest x-ray. I discussed this patient's case with the teamsite developer nurse practitioner Celina Back at approximately 2:26 PM, she will contact Dr. Stuart patient's primary teamsite developer for neck step/recommendations on the patient. I discussed this patient's case yet again with the teamsite developer nurse practitioner Celina Back at approximately 2:32 PM, she discussed this with Dr. Stuart, he recommended if feasible attempted to get the patient transferred to [facility] so she can undergo cardiac MRI with and without contrast and potential heart transplant consultation. Will give 2 mg IV Bumex for pheresis, as well as have nursing staff perform walk test. I reviewed the patient's chest x-ray along with corresponding radiologic report, no acute cardiopulmonary process. Lio Davidson: I was consulted by the EZEQUIEL, and we discussed the complexity of the problems being addressed. I approved the treatment and management plan for this patient's care in the emergency department, thus performing a substantive portion of the medical decision making. I agree with initial workup and resuscitation open disposition pending at time of transfer of care to the oncoming physician, Dr. Johnson. <Paolo Johnson MD - Last Filed: 05/07/25 16:40> Vital Signs Vital Signs: 05/07/25 12:54 05/07/25 13:00 05/07/25 14:00 Temperature 97.9 F Temperature Source Oral Pulse Rate 80 80 Pulse Rate [Right Radial] 81 Respiratory Rate 17 12 13 Blood Pressure 103/63 L 108/58 L Blood Pressure [Right Arm] 108/69 L Blood Pressure Mean [Right Arm] 82 Blood Pressure Source Blood Pressure Source [Right Arm] Automatic Cuff Blood Pressure Position Blood Pressure Position [Right Arm] Sitting 02 Sat by Pulse Oximetry 95 95 95 Oxygen Delivery Method Room Air Oxygen Flow Rate (LPM) 05/07/25 15:00 05/07/25 15:20 05/07/25 15:24 Temperature Temperature Source Pulse Rate 84 Pulse Rate [Right Radial] Respiratory Rate 15 Blood Pressure 107/81 L Blood Pressure [Right Arm] Blood Pressure Mean [Right Arm] Blood Pressure Source Blood Pressure Source [Right Arm] Blood Pressure Position Blood Pressure Position [Right Arm] 02 Sat by Pulse Oximetry 92 L 86 L 97 Oxygen Delivery Method Room Air Nasal Cannula Oxygen Flow Rate (LPM) 2 05/07/25 16:03 Temperature 98.7 F Temperature Source Oral Pulse Rate 81 Pulse Rate [Right Radial] Respiratory Rate 18 Blood Pressure 109/59 L Blood Pressure [Right Arm] Blood Pressure Mean [Right Arm] Blood Pressure Source Automatic Cuff Blood Pressure Source [Right Arm] Blood Pressure Position Supine Blood Pressure Position [Right Arm] 02 Sat by Pulse Oximetry Oxygen Delivery Method Room Air Oxygen Flow Rate (LPM) Lab Data Labs: Lab Results 05/07/25 13:05: WBC 8.0, RBC 3.32 L, Hgb 8.8 L, Hct 29.1 L, MCV 87.7, MCH 26.5 L, MCHC 30.2 L, RDW 18.5 H, Plt Count 239, MPV 10.2, Neut % (Auto) 84.6 H, Lymph % (Auto) 2.5 L, [place] % (Auto) 10.0 H, Eos % (Auto) 2.0, Baso % (Auto) 0.5, Neut # (Auto) 6.7, Lymph # (Auto) 0.2 L, [place] # (Auto) 0.8, Eos # (Auto) 0.2, Baso # (Auto) 0.0, Total Counted 100, Neutrophils % (Manual) 85 H, Lymphocytes % (Manual) 4 L, Monocytes % (Manual) 9, Eosinophils % (Manual) 2, Platelet Estimate Normal, RBC Morphology Normal, PT 25.9 H, INR 2.50 H, APTT 34.0 H, Sodium 133 L, Potassium 3.5, Chloride 93 L, Carbon Dioxide 32 H, Anion Gap 11.5, BUN 72 H, Creatinine 1.70 H, Estimated Creat Clear 46, Estimated GFR 30 L, Est GFR ( Amer) 37 L, Glucose 155 H, Calcium 9.4, Magnesium 2.2, Total Bilirubin 1.3, AST 35, ALT 19, Alkaline Phosphatase 134 H, Troponin I < 0.01, NT-Pro-B Natriuret Pep 3810 H, Total Protein 7.5, Albumin 4.2, Globulin 3.3 H, Albumin/Globulin Ratio 1.3 05/07/25 13:51: Urine Color Yellow, Urine Appearance Clear, Urine pH 7.0, Ur Specific [place] 1.010, Urine Protein Negative, Urine Glucose (UA) Trace, Urine Ketones Negative, Urine Blood Negative, Urine Nitrate Negative, Urine Bilirubin Negative, Urine Urobilinogen 0.2, Ur Leukocyte Esterase Negative, Urine WBC None, Ur Squamous Epith Cells 5-10, Urine Bacteria None 05/07/25 15:34: Troponin I < 0.01 Response Orders (Tests/Meds): ED MEDICATIONS Discontinued Medications Generic Name Dose Route Start Last Admin Trade Name Freq PRN Reason Stop Dose Admin Bumetanide 2 mg 05/07/25 14:38 05/07/25 15:01 Bumetanide 1mg/4ml Vial IV 05/07/25 14:39 2 mg ONCE ONE Administration Heparin Sodium (Porcine) 300 unit 05/07/25 16:10 05/07/25 16:11 Heparin Lock Flush 500 Units/5ml Syr IV 05/07/25 16:11 300 unit ONCE ONE Administration Heparin Sodium (Porcine) 300 unit 05/07/25 16:10 05/07/25 16:11 Heparin Lock Flush 500 Units/5ml Syr IV 05/07/25 16:11 Not Given ONCE ONE ORDERS Category Date Time Status CT chest wo con Stat Cat Scan 05/07/25 14:24 Completed XR chest portable Stat Exams 05/07/25 13:35 Completed Complete Blood Count Auto Diff Stat Lab 05/07/25 13:05 Completed Comprehensive Metabolic Panel Stat Lab 05/07/25 13:05 Completed Magnesium Stat Lab 05/07/25 13:05 Completed NT Pro Brain Natriuretic Pep. Stat Lab 05/07/25 13:05 Completed PT INR [Prothrombin Time INR] Stat Lab 05/07/25 13:05 Completed PTT [Activated Partial Thrombo Time] Stat Lab 05/07/25 13:05 Completed Troponin I Q3H Lab 05/07/25 15:34 Completed Troponin I Stat Lab 05/07/25 13:05 Completed Urinalysis and Microscopic Stat Lab 05/07/25 13:51 Completed MDM Narrative Medical Decision Narrative: 60-year-old female presents to the emergency department with multiple medical complaints, see HPI for detail past medical history, differential diagnosis include but not limited to, acute on chronic CHF exacerbation, decompensated heart failure, pulmonary edema/pulmonary hypertension, peripheral artery disease, cardiac arrhythmia, electrolyte disturbance, ACS among others. I discussed patient case with attending physician Dr. Davidson Will obtain basic laboratory studies, magnesium level proBNP PT/INR, PTT, troponin, urinalysis, CXR, EKG CBC is notable for erythrocyte opinion at 3.32, hemoglobin is decreased at 8.8 hematocrit is decreased 29.1, MCV within normal limits, appears to be in the patient's baseline anemia. Coagulation studies are notable for a PT which is elevated at 25.9, INR is around 2.5, and PTT is minimally elevated at 34. CMP is notable for mild hyponatremia at 133, BUN is mildly elevated at 72, creatinine is mildly elevated at 1.7, GFR 30, this appears to be an acute on chronic kidney injury, corresponding with the patient's CKD, not too far from the patient's baseline. Troponin initially is within normal limits at less than 0.01, proBNP is significantly elevated at 3810. UA is notable for negative leukocyte esterase, negative nitrites. Will obtain CT chest without contrast to further evaluate the concerning findings of pulmonary edema versus pleural effusion on the patient's chest x-ray. I discussed this patient's case with the teamsite developer nurse practitioner Celina Back at approximately 2:26 PM, she will contact Dr. Stuart patient's primary teamsite developer for neck step/recommendations on the patient. I discussed this patient's case yet again with the teamsite developer nurse practitioner Celina Back at approximately 2:32 PM, she discussed this with Dr. Stuart, he recommended if feasible attempted to get the patient transferred to [facility] so she can undergo cardiac MRI with and without contrast and potential heart transplant consultation. Will give 2 mg IV Bumex for pheresis, as well as have nursing staff perform walk test. I reviewed the patient's chest x-ray along with corresponding radiologic report, no acute cardiopulmonary process. Lio Davidson: I was consulted by the EZEQUIEL, and we discussed the complexity of the problems being addressed. I approved the treatment and management plan for this patient's care in the emergency department, thus performing a substantive portion of the medical decision making. I agree with initial workup and resuscitation open disposition pending at time of transfer of care to the oncoming physician, Dr. Johnson. I discussed this patient's case with Dr. Medellin the transfer physician at approximately 3:35 PM, discussed this patient's case with teamsite developer, who recommends cardiac MRI with and without contrast, will be set up at [facility] at outpatient sometime next week, no need for emergent transfer at this time. Discussed these recommendations/results with the patient at the bedside, patient has at home oxygen as needed, up to 2 L as needed, patient's proBNP and lower extremity edema have actually improved since previous, not in acute decompensated heart failure/exacerbation at this time, suspect progressively worsening heart failure in the setting of decreased ejection fraction, patient will be scheduled for cardiac MRI with and without contrast [facility] next week, I instructed the patient to be on the look out for this phone call, I gave the patient strict ED return precautions, patient voiced understanding and agreed with current treatment plan/discharge plan, was also notified the patient does utilize CPAP at home. Recommend he continue with these therapies and all of her medications as prescribed. Patient voiced understanding and agreed with the current treatment plan/discharge plan. I was consulted by the EZEQUIEL, and we discussed the complexity of the problems being addressed. I approved the treatment and management plan for this patient's care in the Emergency Department, thus performing a substantive portion of the medical decision making. Paolo Johnson MD
[2025-05-07 13:41] LABS: Basophils % 0.5 % (0.1-2.0); Eosinophils # 0.2 Kmm3 (0.0-0.4); Hematocrit 29.1 % (37.0-47.0); Hemoglobin 8.8 g/dL (12.2-16.2); Immature Granulocytes # 0.03 10^3uL; Immature Granulocytes % 0.4 %; Lymphocytes # 0.2 K/mm3 (0.7-4.5); Lymphocytes % 2.5 % (10-50); Mean Corpuscular HGB Conc 30.2 g/dL (31.8-35.4); Mean Corpuscular Hemoglobin 26.5 pg (27.0-31.2); Mean Corpuscular Volume 87.7 fl (81-99); Mean Platelet Volume 10.2 fl (7.4-10.4); Monocytes # 0.8 K/mm3 (0.1-1.0); Neutrophils # 6.7 K/mm3 (1.8-7.8); Neutrophils % 84.6 % (37.0-80.0); Nucleated Red Blood Cells # 0 10^3/uL; Nucleated Red Blood Cells % 0 %; Platelet Count 239 K/mm3 (142-424); Red Blood Count 3.32 M/mm3 (4.20-5.40); Red Cell Distribution Width 18.5 % (11.5-17.5); Red Cell Distribution Width-SD 58.5 fL
[2025-05-07 13:43] LABS: Albumin Level 4.2 g/dl (3.5-5.0); Chloride 93 mmol/L (98-107); Potassium 3.5 mmoL/L (3.5-5.1); Sodium 133 mmol/L (136-145)
[2025-05-07 13:46] LABS: Alanine Aminotransferase 19 U/L (12-78); Albumin/Globulin Ratio 1.3 (1.1-1.8); Alkaline Phosphatase 134 U/L (38-126); Anion Gap 11.5 mEq/L (5-15); Aspartate Amino Transferase 35 U/L (14-36); Bilirubin,Total 1.3 mg/dl (0.2-1.3); Blood Urea Nitrogen 72 mg/dl (7-17); Carbon Dioxide 32 mmol/L (22.0-30.0); Creatinine Clearance Estimated 46 mL/min (50-200); Estimated Glomerular Filt Rate 30 ml/min (>60); GFR (African American) 37 ML/MIN (>60); Globulin 3.3 g/dL (1.3-3.2); Total Protein,Serum 7.5 g/dl (6.3-8.2)
[2025-05-07 13:47] LABS: Calcium 9.4 mg/dl (8.4-10.2); Glucose 155 mg/dl (74-100); MANUAL DIFFERENTIAL MANUAL DIFFERENTIAL (MANUAL DIFF); Magnesium 2.2 mg/dl (1.6-2.3)
[2025-05-07 13:51] LABS: Prothrombin Time 25.9 seconds (10.1-12.5)
[2025-05-07 13:55] LABS: Microscopic, Urine URINE MICROSCOPIC (MICROSCOPIC)
[2025-05-07 13:56] LABS: NT Pro Brain Natriuretic Pep. 3810 pg/mL (0-125)
[2025-05-07 13:57] LABS: Appearance,Urine CLEAR (Clear); Bilirubin,Urine Negative (Negative); Blood, Urine Negative (Negative); Color,Urine YELLOW (Yellow); Glucose,Urine (UA) TRACE (Negative); Ketones,Urine Negative (Negative); Leukocyte Esterase,Urine Negative (Negative); Nitrate,Urine Negative (Negative); Protein,Urine Negative (Negative); Urobilinogen,Urine 0.2 EU/dl (0.2)
[2025-05-07 14:04] LABS: Troponin I < 0.01 ng/ml (0.00-0.034)
--- OUTSIDE RECORDS SUMMARY | 2025-05-07 14:07 | XMS_ITS | CCD ---
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
[2025-05-07 14:18] LABS: Eosinophils % 2 % (0-3); Lymphocytes % 4 % (10-50); Monocytes % 9 % (2-9); Neutrophils % 85 % (42-76); Total Cells Counted 100
[2025-05-07 14:19] LABS: Platelet Estimate Normal; RBC Morphology Normal
--- NOTE | 2025-05-07 14:24 | CT_ITS ---
FINAL REPORT TECHNIQUE: Axial images were obtained through the chest without contrast. Sagittal and coronal reconstructions were performed. This study was performed with techniques to keep radiation doses as low as reasonably achievable (ALARA). Individualized dose reduction techniques using automated exposure control or adjustment of mA and/or kV according to the patient's size were employed. CLINICAL HISTORY: Shortness of air COMPARISON: 01/04/2025 FINDINGS: CT CHEST WITHOUT CONTRAST A left anterior chest wall pacemaker is noted. Marked cardiomegaly is again noted, also seen on the prior CT. There are a few small, scattered lymph nodes present in the mediastinum, measuring up to 1.6 cm in size. Lung windows display scar versus atelectasis in the right middle lobe and lingula. The ground CT glass opacities seen on the prior CT of 01/04/2025 have improved since prior exam. There is a small amount of ascites present surrounding the liver and spleen, new since prior exam. Note is made of a 4.0 cm right adrenal mass, stable since prior exam. Healing posterior rib fractures are present. IMPRESSION: Small amount of ascites is noted in the upper abdomen, new since the prior CT. The groundglass opacities noted on the prior CT have improved. Marked cardiomegaly is once again identified. Reviewed, Interpreted and Dictated by Urbano Gracia MD Transcribed by Luanne Castaneda Authenticated and . [facility]
--- NOTE | 2025-05-07 14:24 | PC.NURSE ---
kori made to speak with lexa possibly for pt.
[2025-05-07] MEDS: BUMETANIDE 1MG/4ML VIAL 2 MG IV (15:01)
--- NOTE | 2025-05-07 15:19 | PC.NURSE ---
Request Radiology to [facility].
--- NOTE | 2025-05-07 15:22 | PC.NURSE ---
TRN went to assess pt after she ambulated to the bathroom. upon arrival back to room pt was sitting at edge of bed with O2 saturation of 86% on RA. pt was placed on 2L NC, pt O2 sats up to 97%.
--- NOTE | 2025-05-07 15:31 | PC.NURSE ---
Called [facility] about transferring this pt for Decompensated heart failure and needs a cardiac MRI. [facility] advised that they would call us back.
--- NOTE | 2025-05-07 15:34 | PC.NURSE ---
called back and is speaking with BEATRIS Eldridge at this time
[2025-05-07 16:08] LABS: Troponin I < 0.01 ng/ml (0.00-0.034)
--- NOTE | 2025-05-07 17:00 | HMH.EDCP ---
Discharge Plan Disposition Patient Disposition: Home, Self-Care Condition: Good Prescriptions Prescriptions: No Action oxycodone-acetaminophen [Percocet] 10-325 mg tablet 1 tab PO QID PRN (Reason: Pain, Moderate) alprazolam [Xanax] 0.5 mg tablet 0.5 mg PO TID PRN (Reason: Anxiety) potassium chloride 20 mEq tablet,ER particles/crystals 20 meq PO BID duloxetine 60 mg capsule,delayed release(DR/EC) 60 mg PO HS Patient Comments: TAKE (1) CAPSULE BY MOUTH ONCE A DAY. (DME) Dexcom G6 Transmitter Device See Rx Instructions .ROUTE .MEDSUPPLY Qty: 1 Patient Comments: USE DIRECTED. Rx Instructions: As directed (DME) pen needle, diabetic 32 gauge x 5/32 needle See Rx Instructions .ROUTE .MEDSUPPLY Qty: 1200 Patient Comments: USE TWICE DAILY Rx Instructions: As directed dexlansoprazole 60 mg capsule,biphase delayed releas 60 mg PO DAILY Patient Comments: TAKE (1) CAPSULE BY MOUTH ONCE A DAY. (DME) Dexcom G6 Sensor Device See Rx Instructions .ROUTE .MEDSUPPLY Qty: 1 Patient Comments: CHANGE EVERY 10 DAYS DIRECTED. Rx Instructions: As directed (DME) Dexcom G6 Software Security Consultant Misc See Rx Instructions .ROUTE .MEDSUPPLY Qty: 1 Patient Comments: USE DIRECTED. Rx Instructions: As directed metolazone 2.5 mg tablet 2.5 mg PO DAILY PRN (Reason: edema) amiodarone 200 mg tablet 200 mg PO DAILY Qty: 90 3RF levothyroxine 25 MCG tablet 25 mcg PO DAILY calcitriol 0.25 mcg Capsule 0.25 mcg PO DAILY Soliqua 100/33 3 ML insulin pen 60 units SQ DAILY febuxostat 40 mg tablet 40 mg PO DAILY insulin glargine [Lantus Solostar U-100 Insulin] 100 unit/mL (3 mL) insulin pen 14 unit SQ HS Patient Comments: INJECT 10 UNITS SUB-Q AT BEDTIME. EACH PEN EXPIRES 28 DAYS AFTER FIRST USE. Jardiance 10 mg tablet 10 mg PO DAILY Qty: 30 1RF warfarin 4 mg tablet 2 mg PO DAILY 30 Days Qty: 0 0RF spironolactone 50 mg tablet 50 mg PO DAILY 30 Days Qty: 180 3RF estradiol [Estrace] 1 mg Tablet 1 mg PO DAILY 30 Days Qty: 30 0RF metoprolol succinate 25 mg tablet extended release 24 hr 50 mg PO DAILY 30 Days Qty: 60 0RF bumetanide 2 mg tablet 2 mg PO BID Qty: 60 5RF Referrals Follow up/Referrals: Reji Castro MD [Primary Care Provider, Internal Medicine] - See instructions Activity Restrictions/Add. Instructions Additional Instructions/Restrictions: Please be on the look out for call from [facility], please follow-up with [facility] in the upcoming days/weeks, to schedule your cardiac MRI, please return to the emergency department with any worsening signs or symptoms, please continue take all your medications as prescribed, utilize oxygen as needed at home, please continue to use your CPAP machine. Clinical Impressions Clinical Impression: HFrEF (heart failure with reduced ejection fraction) Dyspnea Qualifiers: Dyspnea type: dyspnea on exertion Qualified Code(s): R06.09 - Other forms of dyspnea Print Language Print Language: Japanese Discharge ED Provider: Lio Davdison HPI <BEATRIS Guardado - Last Filed: 05/07/25 17:01> General Chief Complaint: Shortness of Breath/Dyspnea Stated Complaint: sent by Dr. Castro soa edema in both legs Time Seen by Provider: 05/07/25 12:57 Mode of Arrival: Ambulatory Source of Information: Patient Description of Symptoms (Recalled from ER Triage Doc. by RN): Patient states she is having swelling and redness in bilateral lower extremities and shortness of breath. Patient states she was admitted a month ago, discharged home on 04/12/25, saw dish carrier and PCP after but swelling and redness have gotten progressively worse. Patient states she had a venous doppler done that was negative. Was sent from Dr. Castro's office today. Related Data Home Medications ?Medication ?Instructions ?Recorded ?Confirmed oxycodone-acetaminophen 10 mg-325 1 tab PO QID PRN Pain, Moderate 05/23/18 04/26/25 mg tablet (Percocet) alprazolam 0.5 mg tablet (Xanax) 0.5 mg PO TID PRN Anxiety 11/29/19 04/26/25 levothyroxine 25 mcg tablet 25 mcg PO DAILY 06/05/21 04/26/25 insulin glargine 100 60 units SQ DAILY 02/22/22 04/26/25 unit-lixisenatide 33 mcg/mL subcutaneous pen (Soliqua 100/33) febuxostat 40 mg tablet 40 mg PO DAILY 02/09/23 04/26/25 potassium chloride 20 mEq 20 meq PO BID 04/15/23 04/26/25 tablet,extended release(part/cryst) calcitriol 0.25 mcg capsule 0.25 mcg PO DAILY 10/30/23 04/26/25 duloxetine 60 mg capsule,delayed 60 mg PO HS 03/06/24 04/26/25 release insulin glargine 100 unit/mL (3 14 unit SQ HS 01/17/25 04/26/25 mL) subcutaneous pen (Lantus Solostar U-100 Insulin) blood-glucose sensor (Dexcom G6 #1 ea 04/05/25 04/26/25 Sensor device) blood-glucose transmitter (Dexcom #1 ea 04/05/25 04/26/25 G6 Transmitter device) blood-glucose,receiver setter,cont #1 ea 04/05/25 04/26/25 (Dexcom G6 Software Security Consultant) dexlansoprazole 60 mg 60 mg PO DAILY 04/05/25 04/26/25 capsule,biphase delayed release metolazone 2.5 mg tablet 2.5 mg PO DAILY PRN edema 04/05/25 04/26/25 pen needle, diabetic 32 gauge x #1,200 ea 04/05/25 04/26/25 Previous Rx's ?Medication ?Instructions ?Recorded empagliflozin 10 mg tablet 10 mg PO DAILY #30 tabs 07/17/24 (Jardiance) spironolactone 50 mg tablet 50 mg PO DAILY 30 days #180 tabs 01/05/25 warfarin 4 mg tablet 2 mg (1/2 x 4 mg) PO DAILY 30 days 01/05/25 #0 tabs amiodarone 200 mg tablet 200 mg PO DAILY #90 tabs 04/02/25 bumetanide 2 mg tablet 2 mg PO BID #60 tabs 04/12/25 estradiol 1 mg tablet (Estrace) 1 mg PO DAILY 30 days #30 tabs 04/12/25 metoprolol succinate 25 mg 50 mg (2 x 25 mg) PO DAILY 30 days 04/12/25 tablet,extended release 24 hr #60 tabs Allergies Allergy/AdvReac Type Severity Reaction Status Date / Time codeine (CODEINE) Allergy Unknown nausea, Verified 04/26/25 12:58 swelling Corticosteroids Allergy Unknown Unknown Verified 04/26/25 12:58 (Glucocorticoids) allergy (CORTICOSTEROIDS reaction (GLUCOCORTICOIDS)) NSAIDS (Non-Steroidal Allergy Unknown Other Verified 04/26/25 12:58 Anti-Inflamma rosuvastatin (From CRESTOR) Allergy Unknown Unknown Verified 04/26/25 12:58 allergy reaction theophylline (From DAVID-DUR) Allergy Unknown Unknown Verified 04/26/25 12:58 allergy reaction allopurinol Allergy Hives Verified 04/26/25 12:58 Iodinated Contrast Media AdvReac Severe shuts Verified 04/26/25 12:58 (IODINATED CONTRAST- ORAL kidneys AND IV DYE) down and bleeding buprenorphine (From BUPRENEX) AdvReac Intermediate Nausea Verified 04/26/25 12:58 levofloxacin (From Levaquin) AdvReac Other Verified 04/26/25 12:58 lisinopril AdvReac Cough Verified 04/26/25 12:58 prednisone AdvReac Unknown Verified 04/26/25 12:58 allergy reaction sacubitril (From Entresto) AdvReac Hypotension Verified 04/26/25 12:58 valsartan (From Entresto) AdvReac Hypotension Verified 04/26/25 12:58 [facility] <BEATRIS Guardado - Last Filed: 05/07/25 17:01> [facility] Disclaimer: The information contained in this section may have been updated after the patient was seen, as this information can be updated by other users. 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 current use of anticoagulants with INR goal of 2.5-3.5 Third degree heart block Junctional escape rhythm Current use of group home anticoagulation Afib HFrEF (heart failure with reduced ejection fraction) Partial tear of tendon CHF (NYHA class III, ACC/AHA stage C) Atrial fibrillation, chronic COPD exacerbation CHF exacerbation Anemia Systolic CHF Typical angina Dyspnea Rib fracture Blood transfusion reaction Autoimmune hemolytic anemia Arthritis Hernia Sinus problem Rheumatic heart disease Hypothyroidism Polyarthralgia Pulmonary edema HLD (hyperlipidemia) HTN (hypertension) CAD (coronary artery disease) DM type 2 (diabetes mellitus, type 2) DVT (deep venous thrombosis) Cardiomyopathy Arrhythmia Liver disease Thyroid disease Valvular heart disease Hypertension Hyperlipidemia GERD (gastroesophageal reflux disease) COPD (chronic obstructive pulmonary disease) Class 1 obesity CKD (chronic kidney disease) stage 3, GFR 30-59 ml/min Coronary artery disease Congestive heart failure, NYHA class III NYHA class 3 acute on chronic systolic heart failure Diabetes mellitus Hypertensive heart disease CHF (congestive heart failure) Diastolic heart failure Tricuspid valve regurgitation Surgical History Presence of biventricular AICD History of mitral valve replacement with mechanical valve Mitral valve replaced History of colon resection H/O tubal ligation History of angioplasty History of renal stent History of ureteroscopy History of tubal ligation History of hernia repair History of cardiac catheterization Family History Other Breast cancer COPD (chronic obstructive pulmonary disease) Colon cancer Family history of acute heart failure Family history of hyperlipidemia Family history of hypertension Family history of myocardial infarction Hypertension Stroke Social History Smoking Status: Never smoker smoking status stop date: 01/09/2006 quit status: quit date established second hand exposure: Yes alcohol intake: never substance use type: denies use current occupational status: retired and disabled Travel in the last 8 weeks?: None adopted: No caregiver/support person: No foster care: No household members: significant other housing: house lives independently: Yes marital status: life partner education level: college service: No skilled nursing: No current occupational exposures/hazards: No sexually active: Yes how many partners: 1 are you practicing safe sex: Yes diet: diabetic well-balanced diet: about half the time caffeine: No eating out: rarely or never during the past year weight has: remained stable bhavya/jainism: Church special bhavya needs: No agree to transfusion: Yes helmet use: No water heater temp set < 120 deg: Yes working smoke detector in home: Yes fire extinguisher in home: Yes carbon monox detector in home: Yes firearms in home: No do you feel safe at home: Yes victim of physical abuse: No victim of emotional abuse: No victim of sexual abuse: No would you like helpful sources: No Have you lived/traveled outside [place] in past 30 days?: No Contact w/someone who lives/traveled outside US past 30 days?: No Exposure to someone with infectious disease in past 14 days?: No Do you have a fever (greater than 100.4 F or 38 C)?: No Have you tested positive for COVID-19?: No Exposed to someone with COVID-19 in past 14 days?: No Do you have a sore throat?: No Do you have a cough?: No Do you have any weakness?: No Do you have any diarrhea?: No Are you experiencing any unusual bleeding?: No Do you have any muscle aches/pain?: No Do you have any abdominal pain?: No Are you experiencing loss of taste or smell?: No Other Medical History Have you received the Flu Vaccine for this season: No Have you received the Pneumonia Vaccine: Yes <BEATRIS Guardado - Last Filed: 05/07/25 17:01> ROS Obtained: Yes All systems reviewed & no additional complaints except as documented Physical Exam <BEATRIS Guardado - Last Filed: 05/07/25 17:01> General General appearance: alert and in no apparent distress Respiratory Respiratory exam: Present normal lung sounds bilaterally Cardiovascular Cardiovascular exam: Present Pacemaker w/paced rhythm Neurological Exam Neurological exam: Present alert HEART Score <BEATRIS Guardado - Last Filed: 05/07/25 17:01> HEART Score HEART Score assessment performed?: Yes History (anamnesis): Slightly suspicious ECG: Normal Age: 45-65 years Risk factors: 3 or more risk factors Troponin: </= normal limit HEART Score: 3 <Lio Davidson MD - Last Filed: 05/07/25 18:08> HEART Score HEART Score: 3 Critical Care <BEATRIS Guardado - Last Filed: 05/07/25 17:01> Critical Care Time Critical Care Time: No Medical Decision Making <BEATRIS Guardado - Last Filed: 05/07/25 17:01> Jeancarlos Inquiry Pt receiving controlled substance: No Vital Signs Vital Signs: 05/07/25 12:54 05/07/25 13:00 05/07/25 14:00 Temperature 97.9 F Temperature Source Oral Pulse Rate 80 80 Pulse Rate [Right Radial] 81 Respiratory Rate 17 12 13 Blood Pressure 103/63 L 108/58 L Blood Pressure [Right Arm] 108/69 L Blood Pressure Mean [Right Arm] 82 Blood Pressure Source Blood Pressure Source [Right Arm] Automatic Cuff Blood Pressure Position Blood Pressure Position [Right Arm] Sitting 02 Sat by Pulse Oximetry 95 95 95 Oxygen Delivery Method Room Air Oxygen Flow Rate (LPM) 05/07/25 15:00 05/07/25 15:20 05/07/25 15:24 Temperature Temperature Source Pulse Rate 84 Pulse Rate [Right Radial] Respiratory Rate 15 Blood Pressure 107/81 L Blood Pressure [Right Arm] Blood Pressure Mean [Right Arm] Blood Pressure Source Blood Pressure Source [Right Arm] Blood Pressure Position Blood Pressure Position [Right Arm] 02 Sat by Pulse Oximetry 92 L 86 L 97 Oxygen Delivery Method Room Air Nasal Cannula Oxygen Flow Rate (LPM) 2 05/07/25 16:03 Temperature 98.7 F Temperature Source Oral Pulse Rate 81 Pulse Rate [Right Radial] Respiratory Rate 18 Blood Pressure 109/59 L Blood Pressure [Right Arm] Blood Pressure Mean [Right Arm] Blood Pressure Source Automatic Cuff Blood Pressure Source [Right Arm] Blood Pressure Position Supine Blood Pressure Position [Right Arm] 02 Sat by Pulse Oximetry Oxygen Delivery Method Room Air Oxygen Flow Rate (LPM) Lab Data Labs: Lab Results 05/07/25 13:05: WBC 8.0, RBC 3.32 L, Hgb 8.8 L, Hct 29.1 L, MCV 87.7, MCH 26.5 L, MCHC 30.2 L, RDW 18.5 H, Plt Count 239, MPV 10.2, Neut % (Auto) 84.6 H, Lymph % (Auto) 2.5 L, [place] % (Auto) 10.0 H, Eos % (Auto) 2.0, Baso % (Auto) 0.5, Neut # (Auto) 6.7, Lymph # (Auto) 0.2 L, [place] # (Auto) 0.8, Eos # (Auto) 0.2, Baso # (Auto) 0.0, Total Counted 100, Neutrophils % (Manual) 85 H, Lymphocytes % (Manual) 4 L, Monocytes % (Manual) 9, Eosinophils % (Manual) 2, Platelet Estimate Normal, RBC Morphology Normal, PT 25.9 H, INR 2.50 H, APTT 34.0 H, Sodium 133 L, Potassium 3.5, Chloride 93 L, Carbon Dioxide 32 H, Anion Gap 11.5, BUN 72 H, Creatinine 1.70 H, Estimated Creat Clear 46, Estimated GFR 30 L, Est GFR ( Amer) 37 L, Glucose 155 H, Calcium 9.4, Magnesium 2.2, Total Bilirubin 1.3, AST 35, ALT 19, Alkaline Phosphatase 134 H, Troponin I < 0.01, NT-Pro-B Natriuret Pep 3810 H, Total Protein 7.5, Albumin 4.2, Globulin 3.3 H, Albumin/Globulin Ratio 1.3 05/07/25 13:51: Urine Color Yellow, Urine Appearance Clear, Urine pH 7.0, Ur Specific [place] 1.010, Urine Protein Negative, Urine Glucose (UA) Trace, Urine Ketones Negative, Urine Blood Negative, Urine Nitrate Negative, Urine Bilirubin Negative, Urine Urobilinogen 0.2, Ur Leukocyte Esterase Negative, Urine WBC None, Ur Squamous Epith Cells 5-10, Urine Bacteria None 05/07/25 15:34: Troponin I < 0.01 05/07/25 13:05 05/07/25 13:05 Response Orders (Tests/Meds): ED MEDICATIONS Discontinued Medications Generic Name Dose Route Start Last Admin Trade Name Moeq PRN Reason Stop Dose Admin Bumetanide 2 mg 05/07/25 14:38 05/07/25 15:01 Bumetanide 1mg/4ml Vial IV 05/07/25 14:39 2 mg ONCE ONE Administration Heparin Sodium (Porcine) 300 unit 05/07/25 16:10 05/07/25 16:11 Heparin Lock Flush 500 Units/5ml Syr IV 05/07/25 16:11 300 unit ONCE ONE Administration Heparin Sodium (Porcine) 300 unit 05/07/25 16:10 05/07/25 16:11 Heparin Lock Flush 500 Units/5ml Syr IV 05/07/25 16:11 Not Given ONCE ONE ORDERS Category Date Time Status CT chest wo con Stat Cat Scan 05/07/25 14:24 Completed XR chest portable Stat Exams 05/07/25 13:35 Completed Complete Blood Count Auto Diff Stat Lab 05/07/25 13:05 Completed Comprehensive Metabolic Panel Stat Lab 05/07/25 13:05 Completed Magnesium Stat Lab 05/07/25 13:05 Completed NT Pro Brain Natriuretic Pep. Stat Lab 05/07/25 13:05 Completed PT INR [Prothrombin Time INR] Stat Lab 05/07/25 13:05 Completed PTT [Activated Partial Thrombo Time] Stat Lab 05/07/25 13:05 Completed Troponin I Q3H Lab 05/07/25 15:34 Completed Troponin I Stat Lab 05/07/25 13:05 Completed Urinalysis and Microscopic Stat Lab 05/07/25 13:51 Completed MDM Narrative Medical Decision Narrative: Addendum being made after patient discharge, heart score of 3, and after reviewing patient's CT chest without contrast, see radiology report for full details, no acute pathology in the lungs, no groundglass opacities no pleural effusions, cardiomegaly stable in appearance, some trace ascites is noted. <Lio Davidson MD - Last Filed: 05/07/25 18:08> Vital Signs Vital Signs: 05/07/25 12:54 05/07/25 13:00 05/07/25 14:00 Temperature 97.9 F Temperature Source Oral Pulse Rate 80 80 Pulse Rate [Right Radial] 81 Respiratory Rate 17 12 13 Blood Pressure 103/63 L 108/58 L Blood Pressure [Right Arm] 108/69 L Blood Pressure Mean [Right Arm] 82 Blood Pressure Source Blood Pressure Source [Right Arm] Automatic Cuff Blood Pressure Position Blood Pressure Position [Right Arm] Sitting 02 Sat by Pulse Oximetry 95 95 95 Oxygen Delivery Method Room Air Oxygen Flow Rate (LPM) 05/07/25 15:00 05/07/25 15:20 05/07/25 15:24 Temperature Temperature Source Pulse Rate 84 Pulse Rate [Right Radial] Respiratory Rate 15 Blood Pressure 107/81 L Blood Pressure [Right Arm] Blood Pressure Mean [Right Arm] Blood Pressure Source Blood Pressure Source [Right Arm] Blood Pressure Position Blood Pressure Position [Right Arm] 02 Sat by Pulse Oximetry 92 L 86 L 97 Oxygen Delivery Method Room Air Nasal Cannula Oxygen Flow Rate (LPM) 2 05/07/25 16:03 Temperature 98.7 F Temperature Source Oral Pulse Rate 81 Pulse Rate [Right Radial] Respiratory Rate 18 Blood Pressure 109/59 L Blood Pressure [Right Arm] Blood Pressure Mean [Right Arm] Blood Pressure Source Automatic Cuff Blood Pressure Source [Right Arm] Blood Pressure Position Supine Blood Pressure Position [Right Arm] 02 Sat by Pulse Oximetry Oxygen Delivery Method Room Air Oxygen Flow Rate (LPM) Lab Data Labs: Lab Results 05/07/25 13:05: WBC 8.0, RBC 3.32 L, Hgb 8.8 L, Hct 29.1 L, MCV 87.7, MCH 26.5 L, MCHC 30.2 L, RDW 18.5 H, Plt Count 239, MPV 10.2, Neut % (Auto) 84.6 H, Lymph % (Auto) 2.5 L, [place] % (Auto) 10.0 H, Eos % (Auto) 2.0, Baso % (Auto) 0.5, Neut # (Auto) 6.7, Lymph # (Auto) 0.2 L, [place] # (Auto) 0.8, Eos # (Auto) 0.2, Baso # (Auto) 0.0, Total Counted 100, Neutrophils % (Manual) 85 H, Lymphocytes % (Manual) 4 L, Monocytes % (Manual) 9, Eosinophils % (Manual) 2, Platelet Estimate Normal, RBC Morphology Normal, PT 25.9 H, INR 2.50 H, APTT 34.0 H, Sodium 133 L, Potassium 3.5, Chloride 93 L, Carbon Dioxide 32 H, Anion Gap 11.5, BUN 72 H, Creatinine 1.70 H, Estimated Creat Clear 46, Estimated GFR 30 L, Est GFR ( Amer) 37 L, Glucose 155 H, Calcium 9.4, Magnesium 2.2, Total Bilirubin 1.3, AST 35, ALT 19, Alkaline Phosphatase 134 H, Troponin I < 0.01, NT-Pro-B Natriuret Pep 3810 H, Total Protein 7.5, Albumin 4.2, Globulin 3.3 H, Albumin/Globulin Ratio 1.3 05/07/25 13:51: Urine Color Yellow, Urine Appearance Clear, Urine pH 7.0, Ur Specific [place] 1.010, Urine Protein Negative, Urine Glucose (UA) Trace, Urine Ketones Negative, Urine Blood Negative, Urine Nitrate Negative, Urine Bilirubin Negative, Urine Urobilinogen 0.2, Ur Leukocyte Esterase Negative, Urine WBC None, Ur Squamous Epith Cells 5-10, Urine Bacteria None 05/07/25 15:34: Troponin I < 0.01 Response Orders (Tests/Meds): ED MEDICATIONS Discontinued Medications Generic Name Dose Route Start Last Admin Trade Name Moeq PRN Reason Stop Dose Admin Bumetanide 2 mg 05/07/25 14:38 05/07/25 15:01 Bumetanide 1mg/4ml Vial IV 05/07/25 14:39 2 mg ONCE ONE Administration Heparin Sodium (Porcine) 300 unit 05/07/25 16:10 05/07/25 16:11 Heparin Lock Flush 500 Units/5ml Syr IV 05/07/25 16:11 300 unit ONCE ONE Administration Heparin Sodium (Porcine) 300 unit 05/07/25 16:10 05/07/25 16:11 Heparin Lock Flush 500 Units/5ml Syr IV 05/07/25 16:11 Not Given ONCE ONE ORDERS Category Date Time Status CT chest wo con Stat Cat Scan 05/07/25 14:24 Completed XR chest portable Stat Exams 05/07/25 13:35 Completed Complete Blood Count Auto Diff Stat Lab 05/07/25 13:05 Completed Comprehensive Metabolic Panel Stat Lab 05/07/25 13:05 Completed Magnesium Stat Lab 05/07/25 13:05 Completed NT Pro Brain Natriuretic Pep. Stat Lab 05/07/25 13:05 Completed PT INR [Prothrombin Time INR] Stat Lab 05/07/25 13:05 Completed PTT [Activated Partial Thrombo Time] Stat Lab 05/07/25 13:05 Completed Troponin I Q3H Lab 05/07/25 15:34 Completed Troponin I Stat Lab 05/07/25 13:05 Completed Urinalysis and Microscopic Stat Lab 05/07/25 13:51 Completed MDM Narrative Medical Decision Narrative: Addendum being made after patient discharge, heart score of 3, and after reviewing patient's CT chest without contrast, see radiology report for full details, no acute pathology in the lungs, no groundglass opacities no pleural effusions, cardiomegaly stable in appearance, some trace ascites is noted. Lio Davidson: This addendum was added after the patient's original note was signed due to not being able to reaccessed the chart by EZEQUIEL. I have copied the EZEQUIEL's addendum and pasted in the original note. This note is not reflective of an additional encounter and should be linked to the original note.
== END 2025-05-07 16:11 | disposition home or self-care (01) ==
PROVIDERS: Physician Assistant; Emergency Provider Emergency Medicine; PCP Internal Medicine Adolescent Medicine
DX: I11.0 Hypertensive heart disease with heart failure (principal); I50.20 Unspecified systolic (congestive) heart failure; R06.02 Shortness of breath; R22.43 Localized swelling, mass and lump, lower limb, bilateral; E78.5 Hyperlipidemia, unspecified; Z87.891 Personal history of nicotine dependence
CPT/HCPCS: 71045; 71250; 80053; 81001; 83735; 83880; 84484; 85007; 85025; 85027; 85610; 85730; 93005; 96374; 96375; 99285; J1642; J1939

== ENCOUNTER 2025-05-10 10:15 | Outpatient (CLI) | payer MEDICARE, MEDICAID, SELFPAY ==
--- OUTSIDE RECORDS SUMMARY | 2025-05-10 10:17 | XMS_ITS | Encounter Summary ---
Author Organization [employer] Address [address] [place] [address] Care Team Providers Care Family Therapist Name Role Phone Reji Castro MD Primary Care Provider [phone] Encounter Details Date Type Department Care Team (Late st Contact Info) Description 08/15/2021 Transcribed Document [facility] [place] [facility] [address] ProviderDelvin MD [address] [place] [id number] Social History Tobacco Use Types Packs/Day Years [...] Hold home meds SSI #Depression Celexa #Pain [place] 10 mg every 6 hours as needed [...] levothyroxine, 25 mcg= 1 Tab, Oral, Daily [place] 10 mg-325 mg oral tablet, 1 Tab, [...] # 0.58 x10(3)/uL (Low) 08/14/2021 16:02 EDT [place] % 7.1 % 08/15/2021 03:42 EDT [place] % 7.9 % 08/14/2021 16:02 EDT [place] # 0.50 K/uL 08/15/2021 03:42 EDT [place] # 0.53 K/uL 08/14/2021 16:02 EDT [place] [...] (Low) 08/14/2021 16:02 EDT Electronically signed by [facility], [facility] [employer]ner at 03/09/2023 8:47 PM CDT documented in this encounter Plan of Treatment Not on file documented as of this encounter Visit Diagnoses Not on filedocumented in this encounter Care Teams Family Therapist Relationship Specialty Start Date End Date Reji Castro MD [address] [place] [id number] PCP - General Adolescent Medicine 10/02/22 documented as of this encounter
--- OUTSIDE RECORDS SUMMARY | 2025-05-10 10:17 | XMS_ITS | Encounter Summary ---
Author Organization [employer] Address [address] [place] [address] Care Team Providers Care Needle Grinder Name Role Phone Reji Castro MD Primary Care Provider + [phone] Encounter Details Date Type Department Care Team (Late st Contact Info) Description 08/11/2021 Transcribed Document [facility] [place] [address] [place] [address] ProviderDelvin MD [address] [place] [address] Social History Tobacco Use Types Packs/Day Years [...] : Low risk (0) [place] Interventions : [place] precautions for safety used MARIPOSA JACQUES RN - 08/11/2021 18:46 EDT documented in this encounter Plan of Treatment Not on file documented as of this encounter Visit Diagnoses Not on filedocumented in this encounter Care Teams Needle Grinder Relationship Specialty Start Date End Date Reji Castro MD [address] [place] [id number] PCP - General Adolescent Medicine 10/02/22 documented as of this encounter
--- OUTSIDE RECORDS SUMMARY | 2025-05-10 10:17 | XMS_ITS | Encounter Summary ---
Author Organization [employer] Address [address] [place] [address] Care Team Providers Care Plant Facilities Technician Name Role Phone Reji Castro MD Primary Care Provider [phone] Encounter Details Date Type Department Care Team (Late st Contact Info) Description 08/15/2021 Transcribed Document [facility] [place] [address] ProviderDelvin MD [address] [place] [address] Social History Tobacco Use Types Packs/Day Years [...] 08/15/2021 18:10 EDT Electronically signed by Lanny [facility] Conversion Antique Clock Repairer Cerner at 03/09/2023 8:38 PM CDT documented in this encounter Plan of Treatment Not on file documented as of this encounter Visit Diagnoses Not on filedocumented in this encounter Care Teams Plant Facilities Technician Relationship Specialty Start Date End Date Reji Castro MD [address] [place] [address] PCP - General Adolescent Medicine 10/02/22 documented as of this encounter
--- OUTSIDE RECORDS SUMMARY | 2025-05-10 10:17 | XMS_ITS | Encounter Summary ---
Author Organization [employer] Address [address] [place] [address] Care Team Providers Care Review Consultant Name Role Phone Reji Castro MD Primary Care Provider [phone] Encounter Details Date Type Department Care Team (Late st Contact Info) Description 08/11/2021 Transcribed Document [facility] [place] [facility] [place] [address] ProviderDelvin MD [address] [place] [address] Social History Tobacco Use Types Packs/Day Years [...] action required X1 Electronically signed by Lanny [facility] Conversion Proofer Prepress Cerner at 03/09/2023 8:45 PM CDT documented in this encounter Plan of Treatment Not on file documented as of this encounter Visit Diagnoses Not on filedocumented in this encounter Care Teams Review Consultant Relationship Specialty Start Date End Date Reji Castro MD [address] [place] [address] PCP - General Adolescent Medicine 11/11/22 documented as of this encounter
--- OUTSIDE RECORDS SUMMARY | 2025-05-10 10:18 | XMS_ITS | Encounter Summary ---
Author Organization [employer] Address [address] [place] [address] Care Team Providers Care Broke Man Name Role Phone Reji Castro MD Primary Care Provider [phone] Encounter Details Date Type Department Care Team (Late st Contact Info) Description 08/20/2021 Transcribed Document [facility] [place] [facility] [place] [address] ProviderDelvin MD [facility] [place] [address] Social History Tobacco Use Types Packs/Day Years [...] Warfarin HPI: 56 y/o F presenting to [facility] with history of COPD, atrial fibrillation, [...] cefTRIAXone: 2 Gram, 100 mL/Hr, IV Piggyback, [id number]. citalopram: 40 mg, Oral, Daily. diphenhydrAMINE: 50 [...] questions. Thank you, Andrea Moraes, PharmD PGY1 Gas Meter Mechanic Pager: [phone], Ext. [phone] Electronically signed by Lanny, [facility] Conversion Groundskeeper Cerner at 03/09/2023 8:58 PM CDT documented in this encounter Plan of Treatment Not on file documented as of this encounter Visit Diagnoses Not on filedocumented in this encounter Care Teams Broke Man Relationship Specialty Start Date End Date Reji Castro MD [address] [place] [address] PCP - General Adolescent Medicine 10/02/22 documented as of this encounter
--- OUTSIDE RECORDS SUMMARY | 2025-05-10 10:18 | XMS_ITS | Encounter Summary ---
Author Organization [employer] Address [address] [place] [address] Care Team Providers Care Boiler Riveter Name Role Phone Reji Castro MD Primary Care Provider [phone] Encounter Details Date Type Department Care Team (Late st Contact Info) Description 08/15/2021 Transcribed Document [facility] [place] [address] ProviderDelvin MD [address] [place] [address] Social History Tobacco Use Types Packs/Day Years [...] HPI: 56 y/o F presenting to [facility] with history of COPD, atrial [...] mg, 14 mL, 128 mL/Hr, IV Piggyback, [id number]. docusate-senna: 1 Tab, Oral, BID. famotidine: 20 [...] questions. Thank you, Andrea Moraes, PharmD PGY1 Funder Pager: [phone], Ext. [phone] documented in this encounter Plan of Treatment Not on file documented as of this encounter Visit Diagnoses Not on filedocumented in this encounter Care Teams Boiler Riveter Relationship Specialty Start Date End Date Reji Castro MD [address] [place] [address] PCP - General Adolescent Medicine 10/02/22 documented as of this encounter
--- OUTSIDE RECORDS SUMMARY | 2025-05-10 10:18 | XMS_ITS | Encounter Summary ---
Author Organization [employer] Address [address] [place] [address] Care Team Providers Care Junior Bookkeeper Name Role Phone Reji Castro MD Primary Care Provider [phone] Encounter Details Date Type Department Care Team (Late st Contact Info) Description 08/19/2021 Transcribed Document [facility] [place] [facility] [place] [address] ProviderDelvin MD [facility] [place] [address] Social History Tobacco Use Types Packs/Day Years Used Date Smoking Tobacco: Never Assessed Comments Unknown Sex and Gender Information Value Date Recorded Sex Assigned at Not on file Legal Sex Female 4:32 PM CDT Gender Identity Not on file Sexual Orientation Not on file documented as of this encounter Miscellaneous Notes * Cerner Conversion Note - Delvin ProviderMD - 08/19/2021 2:00 AM CDT Senior National Account Manager Details Entered On: 08/19/2021 3:57 EDT Performed [...] on filedocumented in this encounter Care Teams Junior Bookkeeper Relationship Specialty Start Date End Date Reji Castro MD [address] [place] [address] PCP - General Adolescent Medicine 10/02/22 documented as of this encounter
--- OUTSIDE RECORDS SUMMARY | 2025-05-10 10:18 | XMS_ITS | Encounter Summary ---
Author Organization [employer] Address [address] [facility] [place] [address] Care Team Providers Care Shell Freezing Machine Operator Name Role Phone Reji Castro MD Primary Care Provider [phone] Encounter Details Date Type Department Care Team (Late st Contact Info) Description 08/14/2021 Transcribed Document [facility] [place] [facility] [place] [address] ProviderDelvin MD [address] [place] [address] Social History Tobacco Use Types Packs/Day Years [...] back to her room in stable condition. /[id number] MD DOTTIE Pollard/TONYA / DOTTIE / KENDRA /[id number] Electronically signed by Lanny, [facility] Conversion Run Lead Cerner at 03/09/2023 8:43 PM CDT documented in this encounter Plan of Treatment Not on file documented as of this encounter Visit Diagnoses Not on filedocumented in this encounter Care Teams Shell Freezing Machine Operator Relationship Specialty Start Date End Date Reji Castro MD [address] [place] [address] PCP - General Adolescent Medicine 10/02/22 documented as of this encounter
--- OUTSIDE RECORDS SUMMARY | 2025-05-10 10:18 | XMS_ITS | Encounter Summary ---
Author Organization [employer] Address [address] [place] [address] Care Team Providers Care Pattern Carrier Name Role Phone Reji Castro MD Primary Care Provider [phone] Encounter Details Date Type Department Care Team (Late st Contact Info) Description 08/20/2021 Transcribed Document [facility] Radiology [address] [place] [address] Loren Solorzano MD [address] [place] [address] [place] [id number] Social History Tobacco Use Types Packs/Day Years [...] cefTRIAXone: 2 Gram, 100 mL/Hr, IV Piggyback, [id number] diphenhydrAMINE: 25 mg, Oral, Q6H, PRN: Itching [...] Oral, BID cefTRIAXone 2 Gram, IV Piggyback, [id number] citalopram 20 mg tab 40 mg 2 [...] Bioprosthetic mitral valve replacement / SNOMED CT 987502367 / Confirmed Chronic kidney disease / SNOMED CT 9358772977 / Confirmed COPD - Chronic obstructive pulmonary disease / SNOMED CT 921325580 / Confirmed History of obstructive sleep apnea / IMO [id number] / Confirmed HLD - Hyperlipidemia / SNOMED CT 020102030 / Confirmed HTN - Hypertension / SNOMED CT 0190038279 / Confirmed Canceled: Atrial fibrillation / SNOMED CT 89996720, Active Problems (25) AIHA (autoimmune hemolytic anemia) [...] 25.9 \ Radiology Results (Last 48 hours) [id number] -- 08/11/2021 21:21 CR Fluoro in OR (08/19/2021 08:15) Result: FLUOROSCOPY IN THE ORHISTORY: Staph infection.FINDINGS: Fluoroscopy was provided by the radiology department [id number] placement. 1 spot film was submittedFLUOROSCOPY TIME: [...] Medications: cefTRIAXone 2 Gram, IV Piggyback, Inj, [id number], infuse over 30 Minute(s), Routine, Start 08/20/21 9:00:00 EDT, 100 mL/Hr, Indication: Bacteremia/Line Infection LISA RICKETTS MD-INF heparin 25,000 Units + NaCl 0.45% Premix Diluent 250 mL (heparin injection 25,000 Units + NaCl 0.45% Premix Diluent 250 mL) 250 mL, Bag Volume (mL) = 250, IntraVENous, start date 08/20/21 9:00:00 EDT, Routine, Titrate, 1.98, m2 LROEN SOLORZANO MD-INT polyethylene glycol 3350 (MiraLax) 17 [...] Hold home meds SSI #Depression Celexa #Pain [place] 10 mg every 6 hours as needed Dispo: Given patient with history of multiple transfusion we will keep patient in the hospital on heparin drip and Coumadin till INR therapeutic need IV abx, at least until 09/08. Discussed with geriatric case manager. Time spent 25 minutes documented in this encounter Plan of Treatment Not on file documented as of this encounter Visit Diagnoses Not on filedocumented in this encounter Care Teams Pattern Carrier Relationship Specialty Start Date End Date Reji Castro MD [address] [place] [address] PCP - General Adolescent Medicine 10/02/22 documented as of this encounter
--- OUTSIDE RECORDS SUMMARY | 2025-05-10 10:18 | XMS_ITS | Encounter Summary ---
Author Organization [employer] Address [address] [place] [address] Care Team Providers Care Leather Production Machine Operator Name Role Phone Reji Castro MD Primary Care Provider [phone] Encounter Details Date Type Department Care Team (Late st Contact Info) Description 08/19/2021 Transcribed Document [facility] [place] Family Medicine [facility] [place] [address] ProviderDelvin MD [facility] [place] [address] Social History Tobacco Use Types Packs/Day Years [...] Warfarin HPI: 56 y/o F presenting to [facility] with history of COPD, atrial fibrillation, CKD [...] cefTRIAXone: 2 Gram, 100 mL/Hr, IV Piggyback, [id number]. citalopram: 40 mg, Oral, Daily. diphenhydrAMINE: 50 [...] questions. Thank you, Andrea Moraes, PharmD PGY1 Drugless Doctor Pager: [phone], Ext. [phone] documented in this encounter Plan of Treatment Not on file documented as of this encounter Visit Diagnoses Not on filedocumented in this encounter Care Teams Leather Production Machine Operator Relationship Specialty Start Date End Date Reji Castro MD [address] [place] [address] PCP - General Adolescent Medicine 10/02/22 documented as of this encounter
--- OUTSIDE RECORDS SUMMARY | 2025-05-10 10:18 | XMS_ITS | Encounter Summary ---
Author Organization [employer] Address [address] [place] [address] Care Team Providers Care Moisture Conditioner Operator Name Role Phone Reji Castro MD Primary Care Provider [phone] Encounter Details Date Type Department Care Team (Late st Contact Info) Description 08/15/2021 Transcribed Document [facility] [place] [facility] [place] [address] ProviderDelvin MD [address] [place] [address] Social History Tobacco Use Types Packs/Day Years [...] On: 08/15/2021 10:34 EDT by JULIO STEWART, RN-Wafer Mounter ED Care Management Progress Note Discharge Arrangements : Patient Post-Acute Information Patient Name: IIRNA TAMAYO Gender: Female : [birth year] Age: 56 Years No Post-Acute Placement(s) Listed No Post-Acute Service(s) Listed No [place] Referral(s) Listed Discharge Options Discussed with Patient : DME, Home Health, Short term rehabilitation Barriers to Discharge Identified : Clinical Condition of Patient Barriers to Discharge Unresolved : Clinical Condition of Patient JULIO STEWART, RN-Wafer Mounter ED - 08/18/2021 10:34 EDT Narrative Progress [...] and send referrals as appropriate. JULIO STEWART, RN-Wafer Mounter ED - 08/18/2021 10:34 EDT Electronically signed by Lanny [facility] Conversion Rotor Balancer Cerner at 03/09/2023 8:33 PM CDT documented in this encounter Plan of Treatment Not on file documented as of this encounter Visit Diagnoses Not on filedocumented in this encounter Care Teams Moisture Conditioner Operator Relationship Specialty Start Date End Date Reji Castro MD [address] [place] [id number] PCP - General Adolescent Medicine 10/02/22 documented as of this encounter
--- OUTSIDE RECORDS SUMMARY | 2025-05-10 10:18 | XMS_ITS | Encounter Summary ---
Author Organization [employer] Address [address] [place] [address] Care Team Providers Care Funeral Arrangement Director Name Role Phone Reji Castro MD Primary Care Provider [phone] Encounter Details Date Type Department Care Team (Late st Contact Info) Description 08/14/2021 Transcribed Document [facility] [place] [facility] [place] [address] ProviderDelvin MD [facility] [place] [address] Social History Tobacco Use Types Packs/Day Years Used Date Smoking Tobacco: Never Assessed Comments Unknown Sex and Gender Information Value Date Recorded Sex Assigned at Not on file Legal Sex Female 4:32 PM CDT Gender Identity Not on file Sexual Orientation Not on file documented as of this encounter Miscellaneous Notes * Cerner Conversion Note - Delvin ProviderMD - 08/14/2021 2:00 AM CDT Induction Machine Operator Details Entered On: 08/14/2021 6:50 EDT Performed [...] on filedocumented in this encounter Care Teams Funeral Arrangement Director Relationship Specialty Start Date End Date Reji Castro MD [address] [place] [address] PCP - General Adolescent Medicine 10/02/22 documented as of this encounter
--- OUTSIDE RECORDS SUMMARY | 2025-05-10 10:18 | XMS_ITS | Encounter Summary ---
Author Organization [employer] Address [address] [place] [address] Care Team Providers Care Southeast Regional Sales Manager Name Role Phone Reji Castro MD Primary Care Provider [phone] Encounter Details Date Type Department Care Team (Late st Contact Info) Description 08/20/2021 Transcribed Document [facility] [place] [address] [place] [address] ProviderDelvin MD [address] [place] [address] Social History Tobacco Use Types Packs/Day Years [...] On: 08/20/2021 5:00 EDT by Eula Tinoco Set Up Mechanic Coil Winding Machines-Health Unit Coord Height and Weight, Routine Routine Weight Source : Standing scale Routine Weight Entry Format : Potter Routine Weight, Pounds : 204 lb Routine Weight, Ounces : 7 oz Routine Weight Calculation : 92.93 kg Height Source : Stated Height Entry Format : [place] Height, Feet : 5 ft Height, Inches : 4 Inch Clinical Height : 162.56 cm Body Surface Area (BSA), Routine : 1.98 m2 Body Mass Index (BMI), Routine : 35.17 kg/m2 Eula Tinoco Set Up Mechanic Coil Winding Machines-Health Unit Coord - 08/20/2021 6:41 EDT Electronically signed by Lanny, [facility] Conversion Data Processing Systems Consultant Cerner at 03/09/2023 8:44 PM CDT documented in this encounter Plan of Treatment Not on file documented as of this encounter Visit Diagnoses Not on filedocumented in this encounter Care Teams Southeast Regional Sales Manager Relationship Specialty Start Date End Date Reji Castro MD [address] [place] [address] PCP - General Adolescent Medicine 10/02/22 documented as of this encounter
--- OUTSIDE RECORDS SUMMARY | 2025-05-10 10:18 | XMS_ITS | Encounter Summary ---
Author Organization [employer] Address [address] [place] [address] Care Team Providers Care Client Success Manager Name Role Phone Reji Castro MD Primary Care Provider [phone] Encounter Details Date Type Department Care Team (Late st Contact Info) Description 08/20/2021 Transcribed Document [facility] [place] [address] [place] [address] ProviderDelvin MD [address] [place] [address] Social History Tobacco Use Types Packs/Day Years [...] 08/20/2021 16:48 EDT Electronically signed by Lanny [facility] Conversion Nutrition Services Worker Cerner at 03/09/2023 8:32 PM CDT documented in this encounter Plan of Treatment Not on file documented as of this encounter Visit Diagnoses Not on filedocumented in this encounter Care Teams Client Success Manager Relationship Specialty Start Date End Date Reji Castro MD [address] [place] [address] PCP - General Adolescent Medicine 10/02/22 documented as of this encounter
--- OUTSIDE RECORDS SUMMARY | 2025-05-10 10:18 | XMS_ITS | Encounter Summary ---
Author Organization [employer] Address [address] [place] [address] Care Team Providers Care Pet Groomer Name Role Phone Reji Castro MD Primary Care Provider [phone] Encounter Details Date Type Department Care Team (Late st Contact Info) Description 08/11/2021 Transcribed Document [facility] [place] [address] [place] [id number] ProviderDelvin MD [address] [place] [address] Social History Tobacco Use Types Packs/Day Years [...] Unaccompanied Legal Guardian : No Support Person/Patient Order Planner : Yes Support Person/Pt Rep Name : [...] 180 units of blood due to anemia, [facility] is why she has a port. Information Obtained From : Patient Primary Language : Lao Communication Barrier : None Quality Control Operator Needed : No Cherri Webb RN - [...] Scale Risk Level : 0-24 Low Risk [place] Fall Interventions : Adequate lighting, Assistive devices [...] Source : Stated Height Entry Format : [place] Height, Feet : 5 ft(Converted to: 152 cm, 60 Inch) Height, Inches : 4 Inch(Converted to: 0 ft 4 Inch, 10.16 cm) Clinical Height : 162.56 cm Weight Source : Standing scale Weight Entry Format : [place] Clinical Dosing Weight : 86.39 kg Weight, Pounds : 190 lb Weight, Ounces : 1 oz Body Surface Area (BSA) : 1.92 m2 Body Mass Index : 32.7 kg/m2 (HI) Delta Body Weight : 54 kg Cherri Webb [...] Cherri Webb RN - 08/11/2021 23:11 EDT [place] Suicide Severity Rating Scale (C-SSRS) CSSRS Past [...] Items : Cell phone, Other: Cell Phone Pairing Machine Operator Personal Items Disposition : Bedside Cherri Webb RN - 08/11/2021 23:11 EDT documented in this encounter Plan of Treatment Not on file documented as of this encounter Visit Diagnoses Not on filedocumented in this encounter Care Teams Pet Groomer Relationship Specialty Start Date End Date Reji Castro MD [address] [place] [address] PCP - General Adolescent Medicine 10/02/22 documented as of this encounter
--- OUTSIDE RECORDS SUMMARY | 2025-05-10 10:18 | XMS_ITS | Encounter Summary ---
Author Organization [email or web address] Address [address] [place] [address] Care Team Providers Care Room Service Server Name Role Phone Reji Castro MD Primary Care Provider [phone] Encounter Details Date Type Department Care Team (Late st Contact Info) Description 08/25/2021 Transcribed Document [facility] [place] Family Medicine [address] [place] [address] ProviderDelvin MD [address] [place] [address] Social History Tobacco Use Types Packs/Day Years [...] Patient stated she has chest pain, called CHARGE MASTER ANALYST Team, called md. Vitals signs stable. Put zoll on patient. Stat ekg ordered, cxr and troponin. Patient transferred to [facility]. WILLIAMS HANEY RN - 08/25/2021 11:02 EDT documented in this encounter Plan of Treatment Not on file documented as of this encounter Visit Diagnoses Not on filedocumented in this encounter Care Teams Room Service Server Relationship Specialty Start Date End Date Reji Castro MD [address] [place] [address] PCP - General Adolescent Medicine 10/02/22 documented as of this encounter
--- OUTSIDE RECORDS SUMMARY | 2025-05-10 10:18 | XMS_ITS | Encounter Summary ---
Author Organization [employer] Address [address] [place] [address] Care Team Providers Care Grain Processor Name Role Phone Reji Castro MD Primary Care Provider [phone] Encounter Details Date Type Department Care Team (Late st Contact Info) Description 08/11/2021 Transcribed Document [facility] [place] [address] [place] [address] ProviderDelvin MD [address] [place] [address] Social History Tobacco Use Types Packs/Day Years [...] on filedocumented in this encounter Care Teams Grain Processor Relationship Specialty Start Date End Date Reji Castro MD [address] [place] [address] PCP - General Adolescent Medicine 10/02/22 documented as of this encounter
--- OUTSIDE RECORDS SUMMARY | 2025-05-10 10:18 | XMS_ITS | Encounter Summary ---
Author Organization [employer] Address [address] [place] [address] Care Team Providers Care Director Of Radio Services Name Role Phone Reji Castro MD Primary Care Provider [phone] Encounter Details Date Type Department Care Team (Late st Contact Info) Description 08/20/2021 Transcribed Document [facility] [place] [address] [place] [address] ProviderDelvin MD [facility] [place] [address] Social History Tobacco Use Types Packs/Day Years [...] # 0.38 x10(3)/uL (Low) 08/20/2021 07:38 EDT [place] % 7.9 % 08/20/2021 07:38 EDT [place] # 0.64 K/uL 08/20/2021 07:38 EDT Eos [...] (Critical) 08/20/2021 15:16 EDT Electronically signed by [facility] Conversion Earth Boring Machine Operator Cerner at 03/09/2023 8:31 PM CDT documented in this encounter Plan of Treatment Not on file documented as of this encounter Visit Diagnoses Not on filedocumented in this encounter Care Teams Director Of Radio Services Relationship Specialty Start Date End Date Reji Castro MD [address] [place] [address] PCP - General Adolescent Medicine 10/02/22 documented as of this encounter
--- OUTSIDE RECORDS SUMMARY | 2025-05-10 10:18 | XMS_ITS | Encounter Summary ---
Author Organization [employer] Address [address] [place] [address] Care Team Providers Care Journeyman Electrician Pv Installer Name Role Phone Reji Castro MD Primary Care Provider + [phone] Encounter Details Date Type Department Care Team (Late st Contact Info) Description 08/19/2021 Transcribed Document [facility] [place] [facility] [place] [address] ProviderDelvin MD [address] [place] [address] Social History Tobacco Use Types Packs/Day Years Used Date Smoking Tobacco: Never Assessed Comments Unknown Sex and Gender Information Value Date Recorded Sex Assigned at Not on file Legal Sex Female 4:32 PM CDT Gender Identity Not on file Sexual Orientation Not on file documented as of this encounter Miscellaneous Notes * Cerner Conversion Note - eDlvin ProviderMD - 08/19/2021 5:00 AM CDT Chart [...] on filedocumented in this encounter Care Teams Journeyman Electrician Pv Installer Relationship Specialty Start Date End Date Reji Castro MD [address] [place] [address] PCP - General Adolescent Medicine 10/02/22 documented as of this encounter
--- OUTSIDE RECORDS SUMMARY | 2025-05-10 10:18 | XMS_ITS | Encounter Summary ---
Author Organization [employer] Address [address] [place] [address] Care Team Providers Care Astrophysics Teacher Name Role Phone Reji Castro MD Primary Care Provider + [phone] Encounter Details Date Type Department Care Team (Late st Contact Info) Description 08/25/2021 Transcribed Document [facility] [place] Family Medicine [address] [place] [address] ProviderDelvin MD [address] [place] [address] Social History Tobacco Use Types Packs/Day Years [...] Spiritual : 2 Referral Reason Comment : WILDLIFE ECOLOGIST in Room 454. Ministry Provided to : Patient Spiritual/Emotional Acuity : Medium Spiritual Framework : Integrated, provides strength/resource Active in a [employer] : Yes Active in a [employer] [facility] Restorationist Preference : Sabianist Spiritual Leader Requested : No Jainism Sacrament of the Sick/Anointing Needed : No Lawn Specialist Follow-up Needed : No Rome Burgos Chaplain-Non Cert - 08/25/2021 10:13 EDT Spiritual Assessment Patient's Community/Relationship : Strength in patient's life Supportive/Healthy Relationships : Yes Supportive Restorationist Community : Yes Patient's Sense of Meaning [...] : Yes Spiritual Assessment Comment/Summary Points : WILDLIFE ECOLOGIST. PT is experiencing significant chest pain. She was desirous of prayer, explaining her involvement with her Sabianist religious as well. One of her daugthers is a Orthopedic Surgery Nurse here at [facility]. She reported she is living in a rented house in [place] as her home in [place] [facility]. Lawn Specialist provided pastoral presence, support, and prayer. Family; two daughters, two sisters, one brother, and their families. Spirital Assessment Comment/Summary Report : SPIRITUAL ASSESSMENT COMMENT/SUMMARY No qualifying data available. Rome Burgos Chaplain-Non Cert - 08/25/2021 10:13 EDT Interventions Advance Directive Information Provided : No Emotional Support : Empathic/Engaged listening, Established trust, Feelings expressed, Hope strengths identified, Meaning strengths identified, Relationship strengths identified Spiritual and Restorationist : Prayer shared Rome Burgos Chaplain-Non Cert - 08/25/2021 10:13 EDT Electronically signed by [facility] Conversion Entertainment Musician Cerner at 03/09/2023 8:33 PM CDT documented in this encounter Plan of Treatment Not on file documented as of this encounter Visit Diagnoses Not on filedocumented in this encounter Care Teams Astrophysics Teacher Relationship Specialty Start Date End Date Reji Castro MD [address] [place] [id number] PCP - General Adolescent Medicine 10/02/22 documented as of this encounter
--- OUTSIDE RECORDS SUMMARY | 2025-05-10 10:18 | XMS_ITS | Encounter Summary ---
Author Organization [employer] Address [address] [place] [address] Care Team Providers Care Apprentice Photographer Name Role Phone Reji Castro MD Primary Care Provider [phone] Encounter Details Date Type Department Care Team (Late st Contact Info) Description 08/25/2021 Transcribed Document [facility] [place] [address] [place] [address] ProviderDelvin MD [address] [place] [address] Social History Tobacco Use Types Packs/Day Years [...] On: 08/25/2021 10:48 EDT by Porfirio Caban, Mechanical Engineering Draftsperson Cert Lead Meds to Bed Enrollment Patient Enrollment Decision: : No/do not enroll in meds to bed program Reason for Declining Meds to Bed Program: : Prefer to use home pharmacy Porfirio Caban Mechanical Engineering Draftsperson Cert Lead - 08/26/2021 11:11 EDT documented in this encounter Plan of Treatment Not on file documented as of this encounter Visit Diagnoses Not on filedocumented in this encounter Care Teams Apprentice Photographer Relationship Specialty Start Date End Date Reji Castro MD [address] [place] [id number] PCP - General Adolescent Medicine 10/02/22 documented as of this encounter
--- OUTSIDE RECORDS SUMMARY | 2025-05-10 10:18 | XMS_ITS | Encounter Summary ---
Author Organization [employer] Address [address] [place] [address] Care Team Providers Care Head Refrigerating Engineer Name Role Phone Reji Castro MD Primary Care Provider [phone] Encounter Details Date Type Department Care Team (Late st Contact Info) Description 08/11/2021 Transcribed Document [facility] [place] [address] [place] [address] ProviderDelvin MD [address] [place] [address] Social History Tobacco Use Types Packs/Day Years [...] Communication Barrier : None Primary Language : [place] Any Spiritual/Cultural Needs or Requests : No [...] Neurologic ASMT, ED Neurologic Assessment WDL : [facility] MARIPOSA JACQUES RN - 08/11/2021 [...] filedocumented in this encounter Care Teams Head Refrigerating Engineer Relationship Specialty Start Date End Date Reji Castro MD [address] [place] [id number] PCP - General Adolescent Medicine 10/02/22 documented as of this encounter
--- OUTSIDE RECORDS SUMMARY | 2025-05-10 10:18 | XMS_ITS | Encounter Summary ---
Author Organization [employer] Address [address] [place] [address] Care Team Providers Care Chancellor Name Role Phone Reji Castro MD Primary Care Provider [phone] Encounter Details Date Type Department Care Team (Late st Contact Info) Description 08/14/2021 Transcribed Document [facility] [place] Family Medicine [facility] [place] [address] ProviderDelvin MD [address] [place] [address] Social History Tobacco Use Types Packs/Day Years [...] # 0.71 x10(3)/uL (Low) 08/13/2021 23:47 EDT [place] % 10.6 % (High) 08/13/2021 23:47 EDT [place] # 0.58 K/uL 08/13/2021 23:47 EDT Eos [...] (Low) 08/13/2021 18:40 EDT Electronically signed by [facility] Conversion Lodge Sales Associate Cerner at 03/09/2023 8:59 PM CDT documented in this encounter Plan of Treatment Not on file documented as of this encounter Visit Diagnoses Not on filedocumented in this encounter Care Teams Chancellor Relationship Specialty Start Date End Date Reji Castro MD [address] [place] [id number] PCP - General Adolescent Medicine 10/02/22 documented as of this encounter
--- OUTSIDE RECORDS SUMMARY | 2025-05-10 10:18 | XMS_ITS | Encounter Summary ---
Author Organization [employer] Address [address] [place] [address] Care Team Providers Care Sheet Metal Worker Helper Name Role Phone Reji Castro MD Primary Care Provider [phone] Encounter Details Date Type Department Care Team (Late st Contact Info) Description 08/19/2021 Transcribed Document [facility] [place] [address] [place] [address] ProviderDelvin MD [address] [place] [address] Social History Tobacco Use Types Packs/Day Years [...] Celestin MD - 08/19/2021 7:51 AM CDT [facility] Main OR IntraOp Summary Primary Physician: NENA PEARSON MD-SUR Finalized Date/Time: 08/20/21 09:11:26 Pt. Name: TAMAYO IRINAGE Solis/Sex: 1965 Female Med Rec #: [id number] Physician: VINCE BELLO MD Financial #: [id number] Pt. Type: I Room/Bed: [facility]/ Admit/Disch: 08/11/21 21:21:00 - Institution: [facility] IntraOp Case Attendance Entry 1 Entry 2 Entry 3 Case Attendee NENA PEARSON MD-ERNESTO FISCHER APRN, BURBERRY, KEITH, MD-ANS SLAT BASKET MAKER MACHINE Role Performed Surgeon/Proceduralist, SLAT BASKET MAKER MACHINE/Nurse Power Equipment Mechanics Instructor Anesthesiologist of First Record Time In 08/19/21 [...] YULIA JIM, SCRUB Josh Rivera, ALICIA SOTELO, MIDWIFE/CSA TECH Role Performed Meter/Relay Technician, First Roving Tester Laboratory, First Scrub, First Time In 08/19/21 07:29:00 08/19/21 07:29:00 08/19/21 07:29:00 Time Out 08/19/21 08:24:00 08/19/21 08:24:00 08/19/21 08:24:00 Procedure Vascular Access Vascular Access Vascular Access Insertion Insertion Insertion Other Attendee Superficial Wound Closed By: Last Modified By: Josh Rivera, Josh Perez, Josh Perez, JEREMIAH 08/19/21 08:35:46 08/19/21 08:35:46 08/19/21 08:35:46 Entry 7 Case Attendee David Greene, Clam Bed Worker Role Performed Wire Fence Erector Time In 08/19/21 07:55:00 Time Out 08/19/21 08:07:00 Procedure Vascular Access Insertion Other Attendee Superficial Wound Closed By: Last Modified By: Josh Rivera RN 08/19/21 08:35:46 [facility] IntraOp Case Attendance Audit 08/19/21 08:35:46 Airport Operations Manager: JAZLYN Modifier: JAZLYN 1 <+> Time Out [...] <*> Procedure Vascular Access Insertion 08/19/21 08:07:27 Airport Operations Manager: JAZLYN Modifier: PANTANOS 1 <*> Procedure Vascular Access Insertion 2 <*> Procedure Vascular Access Insertion 3 <*> Procedure Vascular Access Insertion 4 <*> Procedure Vascular Access Insertion 5 <*> Procedure Vascular Access Insertion 6 <*> Procedure Vascular Access Insertion 7 <+> Time In 7 <+> Time Out 7 <*> Procedure Vascular Access Insertion 08/19/21 08:04:07 Airport Operations Manager: JAZLYN Modifier: PANTANOS <+> 7 Case Attendee <+> 7 Role Performed <+> 7 Procedure 08/19/21 08:00:27 Airport Operations Manager: JAZLYN Modifier: PANTANOS 1 <*> Procedure Vascular Access Insertion 2 <*> Procedure Vascular Access Insertion 3 <*> Procedure Vascular Access Insertion 4 <+> Time In 4 <*> Procedure Vascular Access Insertion 5 <+> Time In 5 <*> Procedure Vascular Access Insertion 6 <+> Time In 6 <*> Procedure Vascular Access Insertion 08/19/21 07:52:21 Airport Operations Manager: JAZLYN Modifier: PANTANOS <+> 1 Procedure 2 <+> Time In 2 <*> Procedure Vascular Access Insertion 3 <+> Time In 3 <*> Procedure Vascular Access Insertion <+> 4 Case Attendee <+> 4 Role Performed <+> 4 Procedure <+> 5 Case Attendee <+> 5 Role Performed <+> 5 Procedure <+> 6 Case Attendee <+> 6 Role Performed <+> 6 Procedure [facility] IntraOp Case Times Entry 1 Patient In Room Time 08/19/21 07:29:00 Out Room Time 08/19/21 08:24:00 Anesthesia Start Time 08/19/21 07:29:00 Stop Time 08/19/21 08:24:00 Surgery / Procedure Times Start Time 08/19/21 07:51:00 Stop Time 08/19/21 08:17:00 Last Modified By: Josh Rivera RN 08/19/21 08:24:22 [facility] IntraOp Case Times Audit 08/19/21 08:24:22 Airport Operations Manager: JAZLYN Modifier: MAKENNAANOS <+> 1 Out Room Time <+> 1 Stop Time <+> 1 Stop Time 08/19/21 07:51:02 Airport Operations Manager: JAZLYN Modifier: JUDITHS <+> 1 Start Time [facility] IntraOp Cautery Entry 1 ESU Identification Cautery Type Monopolar ESU ID Number [id number] ID Type Hospital Number Cautery Settings Cut Setting 30 Coag Setting 30 ESU Grounding Pad Ground Pad Type Adult Grounding Pad Site Right Buttock Grounding Pad Josh Rivera RN Applied By Grounding Pad Site Intact Skin Condition Before Cautery Grounding Pad Site Intact Skin Condition After Cautery Last Modified By: Josh Rivera RN 08/19/21 07:52:52 [facility] IntraOp Communication Entry 1 Communication To Family/Significant other Communication By Josh Rivera RN Last Modified By: Josh Rivera RN 08/19/21 07:58:45 [facility] IntraOp Counts Verification Entry 1 Procedure Vascular Access Insertion Count Info Count Type Sponge, Sharps, Miscellaneous Counts Verification Baseline/pre-procedure Sequence Count Results Correct, surgeon notified Counts Performed By Count Performed By ALICIA MACIAS SCRUB (Scrub) TECH Count Performed By Josh Rivera RN (RN) Last Modified By: Josh Rivera RN 08/19/21 07:53:18 [facility] IntraOp Counts Final Entry 1 Procedure Vascular Access Insertion Final Count Info Count Type Sponge, Sharps, Miscellaneous Counts Verification Skin Closure/end of Sequence procedure Count Results Correct, surgeon notified Counts Performed By Count Performed By ALICIA MACIAS SCRUB (Scrub) TECH Count Performed By Josh Rivera RN (RN) Last Modified By: Josh Rivera RN 08/19/21 07:53:41 [facility] IntraOp Departure from OR Entry 1 Integumentary Assessment Integumentary WDL Assessment WDL Transfer/Handoff Transfer to Nursing unit Handoff Method Bedside/Face to face, Online nursing summary Post-op Transport Stretcher/Roderick Via Patient Transport ERNESTO SOUSA APRN, Accompanied by SLAT BASKET MAKER MACHINE Last Modified By: Josh Rivera RN 08/19/21 08:02:48 [facility] IntraOp Departure from OR Audit 08/19/21 08:02:48 Airport Operations Manager: JAZLYN Modifier: JAZLYN 1 <*> Transfer to Ambulatory unit, Phase II 1 <+> Patient Transport Accompanied by [facility] IntraOp Dressing and Packing Entry 1 Type Dressing Location OPSITE Wound Dressing Item Skin Closure Glue Applied By YULIA JIM SCRUB TECH/OCTAVIO Last Modified By: Josh Rivera RN 08/19/21 07:54:28 [facility] IntraOp Fire Risk Assessment Entry [...] Modified By: Josh Rivera RN 08/19/21 07:53:55 [facility] IntraOp General Case Advanced Practice Provider 1 Case Information OR OR 06 [facility] Case Level 1 Room Verified Yes Wound Class I - Clean Specialty General ASA Class 4 Diagnosis Preop Diagnosis IV Access Postop Same As Preop Yes Postop Diagnosis IV Access Last Modified By: Josh Rivera RN 08/19/21 07:58:27 [facility] IntraOp Intraoperative Assessment Entry 1 [...] Modified By: Josh Rivera RN 08/19/21 07:59:09 [facility] IntraOp Intraoperative Equipment Entry 1 Type Monitoring Equipment Intraop Monitoring Electrocardiogram Three lead placement (ECG) Electrode Placement Blood Pressure Non-Invasive BP Device Source Blood Pressure Arm, right upper Location Pulse Oximeter Hand, left Probe Site Antiembolic Devices Scopes Photo/Video Documentation Last Modified By: Josh Rivera RN 08/19/21 07:59:29 [facility] IntraOp Medication Admin Entry 1 Entry 2 Medication/Irrigant LIDOCAINE 1% WITH EPI Heplock 100units/ml 5ml 1:100,000 vial - [id number] Combo Med List Time Administered 08/19/21 07:59:00 08/19/21 07:59:00 Route of LOCAL HEP LOCK Administration Dose Dose 30 10 Unit of Measure ml ml Volume Administered By PEARSON, CATALINAMESHA JOHN M, MD-SUR Procedure Irrigation Irrigant Volume In Irrigant Volume Out Last Modified By: Josh Rivera RN Pantano, Scott, RN 08/19/21 08:00:16 08/19/21 08:00:16 [facility] IntraOp Patient Positioning Entry 1 [...] Modified By: Josh Rivera RN 08/19/21 07:54:11 [facility] IntraOp Sign In Entry 1 [...] Modified By: Josh Rivera RN 08/19/21 08:00:24 [facility] IntraOp Sign Out Entry 1 [...] Modified By: Josh Rivera RN 08/19/21 08:35:34 [facility] IntraOp Sign Out Audit 08/19/21 08:35:34 Airport Operations Manager: JAZLYN Modifier: PANTANOS <+> 1 RN Sign Out Signature <+> 1 RN Sign Out Signature Date/Time <+> 1 Urinary Catheter Documented in IView [facility] IntraOp Skin Prep Entry 1 Procedure Vascular Access Insertion Prescribed N/A Pre-Surgical Prep Completed Prep Area CHIN THRU CHEST INCLUDE BILATERAL SHOULDERS Intraop Prep Prep Agents Chloraprep Hair Removal Last Modified By: Josh Rivera RN 08/19/21 07:58:31 [facility] IntraOp Surgical Procedures Entry 1 Procedure Vascular Access Insertion Additional (PORT A CATH PLACEMENT) Procedure Description Primary Procedure Yes Primary Surgeon NENA PEARSON MD-TATYANA Start 08/19/21 07:51:00 Stop 08/19/21 08:17:00 Anesthesia Type MAC Specialty General Wound Class I - Clean Last Modified By: Josh Rivera RN 08/19/21 08:35:09 [facility] IntraOp Surgical Procedures Audit 08/19/21 08:35:09 Airport Operations Manager: JAZLYN Modifier: JUDITHS <+> 1 Stop [facility] IntraOp Temp Regulation Devices Entry 1 Temp Regulation Temperature Warm blankets Regulation Device Temperature Full body Regulation Site Temperature ERNESTO SOUSA APRN, Regulation Device SLAT BASKET MAKER MACHINE Applied by Last Modified By: Josh Rivera RN 08/19/21 07:54:19 [facility] IntraOP Time Out Entry 1 [...] Modified By: Josh Rivera RN 08/19/21 08:02:27 [facility] IntraOP Time Out Audit 08/19/21 08:02:27 Airport Operations Manager: JAZLYN Modifier: PANTANOS 1 <+> Beta Alessandra Administered 1 <*> Procedure to be Performed Vascular Access Insertion 08/19/21 08:00:58 Airport Operations Manager: JAZLYN Modifier: PANTANOS 1 <+> All activity [...] <+> Team Verbally Confirms Information 08/19/21 08:00:32 Airport Operations Manager: JAZLYN Modifier: PANTANOS <+> 1 Procedure to be Performed [facility] IntraOp X-Ray and Images Entry 1 X-Ray/Imaging Type Fluoroscopy Fluoroscopy Type C-Arm Site CHEST Sales Representative Graphic Art Name David Greene, Clam Bed Worker Protective Devices Yes Used Last Modified By: Josh Rivera RN 08/19/21 08:04:48 Case Comments <None> Finalized By: WILNER DUPONT Document Signatures Signed By: Josh Rivera RN 08/19/21 08:35 WILNER DUPONT 08/20/21 09:11 Unfinalized History Date/Time Username Reason for Unfinalizing Freetext Reason for Unfinalizing 08/20/21 09:10 PAM Correct Billing Electronically signed by [facility] Conversion Ecological Economist Cerner at 03/09/2023 8:49 PM CDT documented in this encounter Plan of Treatment Not on file documented as of this encounter Visit Diagnoses Not on filedocumented in this encounter Care Teams Sheet Metal Worker Helper Relationship Specialty Start Date End Date Reji Castro MD [address] [place] [id number] PCP - General Adolescent Medicine 10/02/22 documented as of this encounter
--- OUTSIDE RECORDS SUMMARY | 2025-05-10 10:18 | XMS_ITS | Encounter Summary ---
Author Organization [employer] Address [address] [place] [address] Care Team Providers Care Glass Handler Name Role Phone Reji Castro MD Primary Care Provider [phone] Encounter Details Date Type Department Care Team (Late st Contact Info) Description 08/14/2021 Transcribed Document [facility] [place] [address] ProviderDelvin MD [address] [place] [phone] Social History Tobacco Use Types Packs/Day Years [...] Celestin MD - 08/14/2021 7:45 AM CDT [facility] Main OR IntraOp Summary Primary Physician: NENA PEARSON MD-SUR Finalized Date/Time: 08/18/21 09:41:55 Pt. Name: TAMAYO IRINAGE Solis/Sex: 1965 Female Med Rec #: [id number] Physician: VINCE BELLO MD Financial #: [id number] Pt. Type: I Room/Bed: [facility]/ Admit/Disch: 08/11/21 21:21:00 - Institution: [facility] IntraOp Case Attendance Entry 1 Entry 2 Entry 3 Case Attendee NENA PEARSON MD-SUR Montgomery, Hazel, RN Poe, Kali, RN Role Performed Surgeon/Proceduralist, Embedded Systems Software Engineer, First Embedded Systems Software Engineer, Second First Time In 08/14/21 07:34:00 08/14/21 [...] Case Attendee Randee Swain, Scrub TAMELA PRITCHETT, FORGING MACHINE OPERATOR BORIS VEGAS Tech MD-ANS Role Performed Scrub, First FORGING MACHINE OPERATOR/Nurse Shotgun Shell Reprinting Unit Operator Anesthesiologist of Record Time In 08/14/21 07:34:00 08/14/21 07:34:00 08/14/21 07:34:00 Time Out 08/14/21 08:17:00 08/14/21 08:17:00 08/14/21 08:17:00 Procedure Vascular Access Removal Vascular Access Removal Vascular Access Removal Other Attendee Superficial Wound Closed By: Last Modified By: Erika Montgomery, Erika Chand, Erika Chand, JEREMIAH 08/14/21 08:22:17 08/14/21 08:22:17 08/14/21 08:22:17 Entry 7 Case Attendee OTHER, ATTENDEE #1 Role Performed FORGING MACHINE OPERATOR/Nurse Shotgun Shell Reprinting Unit Operator Time In 08/14/21 07:34:00 Time Out 08/14/21 08:17:00 Procedure Vascular Access Removal Other Attendee OJEY HOBBS FORGING MACHINE OPERATOR STUDENT Superficial Wound Closed By: Last Modified By: Erika Montgomery RN 08/14/21 10:50:59 [facility] IntraOp Case Attendance Audit 08/14/21 10:50:59 Airborne Operations: LIAM Modifier: LIAM 7 <*> Procedure Vascular Access Removal 7 <*> Other Attendee JOEY PROCTOR FORGING MACHINE OPERATOR STUDENT 08/14/21 08:24:52 Airborne Operations: LAFAVEHM Modifier: LAFAVEHM <+> 7 Case Attendee <+> 7 Role Performed <+> 7 Time In <+> 7 Time Out <+> 7 Procedure <+> 7 Other Attendee 08/14/21 08:22:17 Airborne Operations: LAFAVEHM Modifier: LAFAVEHM 1 <+> Time In [...] Out 6 <*> Procedure Vascular Access Removal [facility] IntraOp Case Times Entry 1 Patient In Room Time 08/14/21 07:34:00 Out Room Time 08/14/21 08:17:00 Anesthesia Start Time 08/14/21 07:34:00 Stop Time 08/14/21 08:17:00 Surgery / Procedure Times Start Time 08/14/21 07:45:00 Stop Time 08/14/21 08:08:00 Last Modified By: Erika Montgomery RN 08/14/21 08:17:16 [facility] IntraOp Case Times Audit 08/14/21 08:17:16 Airborne Operations: LAFAVEHM Modifier: LAFAVEHM <+> 1 Out Room Time <+> 1 Stop Time <+> 1 Stop Time 08/14/21 07:46:45 Airborne Operations: LAFAVEHM Modifier: LAFAVEHM <+> 1 Start Time [facility] IntraOp Cautery Entry 1 ESU Identification Cautery Type Monopolar ESU ID Number [id number] ID Type Hospital Number Cautery Settings Cut Setting 30 Coag Setting 30 ESU Grounding Pad Ground Pad Type Reusable electrode pad Grounding Pad Type MEGADYNE PAD Comment Grounding Pad Site Posterior Grounding Pad Site Warm, dry and intact Skin Condition Before Cautery Grounding Pad Site Unchanged Skin Condition After Cautery Last Modified By: Erika Montgomery RN 08/14/21 07:19:50 [facility] IntraOp Communication Entry 1 Communication To Family/Significant other Communication By Erika Montgomery RN Date and Time 08/14/21 07:47:00 Last Modified By: Erika Montgomery RN 08/14/21 07:47:41 [facility] IntraOp Counts Verification Entry 1 Procedure Vascular Access Removal Count Info Count Type Sponge, Sharps, Miscellaneous Counts Verification Baseline/pre-procedure Sequence Counts Performed By Count Performed By Randee Swain Scrub (Scrub) Tech Count Performed By Jj Mancuso RN (RN) Last Modified By: Erika Montgomery RN 08/14/21 07:18:54 [facility] IntraOp Counts Final Entry 1 Procedure Vascular Access Removal Final Count Info Count Type Sponge, Sharps, Miscellaneous Counts Verification Skin Closure/end of Sequence procedure Count Results Correct, surgeon notified Counts Performed By Count Performed By Randee Swain Scrub (Scrub) Tech Count Performed By Jj Mancuso RN (RN) Last Modified By: Erika Montgomery RN 08/14/21 08:02:40 [facility] IntraOp Counts Final Audit 08/14/21 08:02:40 Airborne Operations: LIAM Modifier: LIAM 1 <*> Procedure Vascular Access Removal 1 <*> Count Type Sponge, Sharps, Miscellaneous 1 <*> Count Results Correct, surgeon notified 1 <+> Count Performed By (Scrub) 1 <+> Count Performed By (RN) 1 <*> Counts Verification Sequence Skin Closure/end of procedure [facility] IntraOp Cultures and Spec Summary Entry 1 Cultrures and Specimens Specimen Ordered: Yes Test(s) Culture(s)/Microbiology Requested/Final Disposition Last Modified By: Erika Montgomery RN 08/14/21 07:51:28 [facility] IntraOp Delays Entry 1 Delay Reason Other Duration 4 Minute(s) Comment MEDICATION DELAY Last Modified By: Erika Montgomery RN 08/14/21 07:49:40 [facility] IntraOp Departure from OR Entry 1 Integumentary Assessment Transfer/Handoff Transfer to Other Handoff Method Bedside/Face to face, Phone call, Online nursing summary Post-op Transport Stretcher/Roderick Via Patient Transport TAMELA PRITCHETT CRNA Accompanied by Transfer/Handoff RN REPORT ( ELEVATED Comments HOB WEIGHT OVER DRRESSING (IV BAG) RESTRICT USE LEFT ARM X [address] PEARSON. TRANSPORT TO FLOOR BY [facility] Last Modified By: Erika Montgomery RN 08/14/21 08:21:55 [facility] IntraOp Departure from OR Audit 08/14/21 08:21:55 Airborne Operations: LIAM Modifier: LAFBEAR 1 <*> Transfer/Handoff Comments TRANSPORT TO FLOOR BY [facility] 1 <+> Post-op Transport Via [facility] IntraOp Dressing and Packing Entry 1 Type Dressing Location L UPPER CHEST Wound Dressing Item 4x4's, Skin Closure Glue Other Comments PRESSURE DRESSING Last Modified By: Erika Montgomery RN 08/14/21 08:19:18 [facility] IntraOp Fire Risk Assessment Entry 1 Fire [...] Modified By: Erika Montgomery RN 08/14/21 07:49:49 [facility] IntraOp Fire Risk Assessment Audit 08/14/21 07:49:49 Airborne Operations: LIAM Modifier: LAFAVEHM <+> 1 Fire Risk Assessment Verified Date/Time [facility] IntraOp General Case Credit Review Manager 1 Case Information OR OR 08 [facility] Case Level 1 Room Verified Yes Wound Class I - Clean Specialty General Anesthesia Type MAC ASA Class 4 Diagnosis Preop Diagnosis INFECTED SANAM CATH Postop Same As Preop No Postop Diagnosis SEE MD POST OP NOTES Last Modified By: Erika Montgomery RN 08/14/21 07:52:14 [facility] IntraOp General Case Data Audit 08/14/21 07:52:14 Airborne Operations: LIAM Modifier: LAFRUSTYHM <+> 1 Preop Diagnosis [facility] IntraOp Intraoperative Assessment Entry 1 Handoff Method Bedside/Face to face, Phone call, Online nursing summary Valid History / Yes Physical in Chart Preoperative Yes Checklist Reviewed/Evaluated Allergies Reviewed Yes Patient is Latex No Sensitive Present Upon IVs Arrival to OR Last Modified By: Erika Montgomery RN 08/14/21 07:20:57 [facility] IntraOp Intraoperative Equipment Entry 1 Type Monitoring Equipment Equipment Juan Carlos Suction System Intraop Monitoring Antiembolic Devices Scopes Photo/Video Documentation Last Modified By: Erika Montgomery RN 08/14/21 07:21:08 [facility] IntraOp Medication Admin Entry 1 Medication/Irrigant lidocaine 1% w/ epinephrine 1:100,000 30ml vial - [id number] Route of LOCAL Administration Dose Dose 10 Unit of Measure ml Administered By NENA PEARSON MD-SUR Procedure Irrigation Last Modified By: Erika Montgomery RN 08/14/21 08:02:53 [facility] IntraOp Medication Admin Audit 08/14/21 08:02:53 Airborne Operations: LAFAVEHM Modifier: LAFAVEHM 1 <*> Medication/Irrigant lidocaine 1% w/ epinephrine 1:100,000 30ml vial - [id number] 1 <+> Dose [facility] IntraOp Patient Positioning Entry 1 Procedure Vascular [...] Positioned By NENA PEARSON MD-SUR, Erika Montgomery, JEERMIAH, Jj Mancuso, JEREMIAH, TAMELA PRITCHETT CRNA Position Verified Positioning Yes Verified by Anesthesia Positioning Yes Verified by Surgeon Last Modified By: Erika Montgomery RN 08/14/21 07:23:01 [facility] IntraOp Patient Positioning Audit 08/14/21 07:23:01 Airborne Operations: LAFAVEHM Modifier: LAFAVEHM 1 <*> Procedure Vascular Access Removal 1 <+> Positioning Verified by Anesthesia 1 <+> Positioning Verified by Surgeon 1 <+> Positioned By [facility] IntraOp Sign In Entry 1 Patient, Site, [...] Modified By: Erika Montgomery RN 08/14/21 07:47:09 [facility] IntraOp Sign Out Entry 1 RN Confirmation [...] Modified By: Erika Montgomery RN 08/14/21 08:22:10 [facility] IntraOp Sign Out Audit 08/14/21 08:22:10 Airborne Operations: LIAM Modifier: LAFAVEHM <+> 1 RN Sign Out Signature Date/Time [facility] IntraOp Skin Prep Entry 1 Procedure Vascular Access Removal Prescribed Yes Pre-Surgical Prep Completed Prep Area CHEST INCLUDE LEFT SHOULDER Intraop Prep Prep Agents Chloraprep Prep by NENA PEARSON MD-TATYANA Hair Removal Methods No hair removal performed Last Modified By: Erika Montgomery RN 08/14/21 07:49:03 [facility] IntraOp Surgical Procedures Entry 1 Procedure Vascular Access Removal Additional (PORT A CATH REMOVAL) Procedure Description Primary Procedure Yes Primary Surgeon NENA PEARSON MD-TATYANA Start 08/14/21 07:45:00 Stop 08/14/21 08:08:00 Anesthesia Type MAC Specialty General Wound Class I - Clean Last Modified By: Erika Montgomery RN 08/14/21 08:22:14 General Comments: PATIENT ON SCHEDULED ANTIBIOTICS/ NO ADDITIONAL ANTIBIOTICS PER SURGEON [facility] IntraOp Surgical Procedures Audit 08/14/21 08:22:14 Airborne Operations: LIAM Modifier: LAFAVEHM 1 <*> Stop 08/14/21 07:48:13 Airborne Operations: LIAM Modifier: LIAM 1 <*> Start 1 <*> Start [facility] IntraOP Time Out Entry 1 Procedure to [...] on filedocumented in this encounter Care Teams Glass Handler Relationship Specialty Start Date End Date Reji Castro MD [address] [place] [id number] PCP - General Adolescent Medicine 10/02/22 documented as of this encounter
--- OUTSIDE RECORDS SUMMARY | 2025-05-10 10:18 | XMS_ITS | Encounter Summary ---
Author Organization [employer] Address [address] [place] [address] Care Team Providers Care Lead Business Systems Analyst Name Role Phone Reji Castro MD Primary Care Provider [phone] Encounter Details Date Type Department Care Team (Late st Contact Info) Description 08/11/2021 Transcribed Document [facility] Family Medicine [address] [place] [address] ProviderDelvin MD [address] [place] [address] Social History Tobacco Use Types Packs/Day Years [...] : 3 - Urgent Tracking Group : [facility] ED MICHAEL NAM RN - 08/11/2021 [...] 08/11/2021 16:25:12 EDT) Problems(Active) Amblyopia (SNOMED CT :6135104187 ) Name of Problem: Amblyopia ; Recorder: Whitney Razo RN; Confirmation: Confirmed ; Classification: Patient Stated ; Code: [id number] ; Contributor System: PowerChart ; Last Updated: 05/03/2014 19:25 EDT ; Life Cycle Date: 12/02/2013 ; Life Cycle Status: Active ; Vocabulary: SNOMED CT ; Comments: 12/02/2013 0:50 - Whitney Razo RN lazy eye blindness (left eye) Arthritis (SNOMED CT :4306098 ) Name of Problem: Arthritis ; Recorder: Whitney Razo RN; Confirmation: Confirmed ; Classification: Patient Stated ; Code: [id number] ; Contributor System: PowerChart ; Last Updated: 05/03/2014 19:25 EDT ; Life Cycle Date: 12/02/2013 ; Life Cycle Status: Active ; Vocabulary: SNOMED CT Atrial fibrillation (SNOMED CT :24728379 ) Name of Problem: Atrial fibrillation ; Recorder: Whitney Razo RN; Confirmation: Confirmed ; Classification: Patient Stated ; Code: 11181384 ; Contributor System: PowerChart ; Last Updated: 05/03/2014 19:25 EDT ; Life Cycle Date: 12/02/2013 ; Life Cycle Status: Active ; Vocabulary: SNOMED CT Back pain (PNED :[id number] ) Name of Problem: Back pain ; Recorder: Whitney Razo RN; Confirmation: Confirmed ; Classification: Patient Stated ; Code: [id number] ; Contributor System: PowerChart ; Last Updated: 05/07/2014 9:11 EDT ; Life Cycle Date: 12/02/2013 ; Life Cycle Status: Active ; Vocabulary: PNED Bowel obstruction (SNOMED CT :614205762 ) Name of Problem: Bowel obstruction ; Recorder: Whitney Razo RN; Confirmation: Confirmed ; Classification: Patient Stated ; Code: 299897868 ; Contributor System: PowerChart ; Last Updated: 05/03/2014 19:25 EDT ; Life Cycle Date: 12/02/2013 ; Life Cycle Status: Active ; Vocabulary: SNOMED CT Bronchitis (SNOMED CT :21948415 ) Name of Problem: Bronchitis ; Recorder: Whitney Razo RN; Confirmation: Confirmed ; Classification: Patient Stated ; Code: 57194614 ; Contributor System: PowerChart ; Last Updated: 05/03/2014 19:25 EDT ; Life Cycle Date: 12/02/2013 ; Life Cycle Status: Active ; Vocabulary: SNOMED CT Cardiac arrhythmia (SNOMED CT :6536175795 ) Name of Problem: Cardiac arrhythmia ; Recorder: Whitney Razo RN; Confirmation: Confirmed ; Classification: Patient Stated ; Code: 9744020958 ; Contributor System: PowerChart ; Last Updated: 05/03/2014 19:25 EDT ; Life Cycle Date: 12/02/2013 ; Life Cycle Status: Active ; Vocabulary: SNOMED CT Cardiomyopathy (SNOMED CT :996516789 ) Name of Problem: Cardiomyopathy ; Recorder: Whitney Razo RN; Confirmation: Confirmed ; Classification: Patient Stated ; Code: 454201780 ; Contributor System: PowerChart ; Last Updated: 05/03/2014 19:25 EDT ; Life Cycle Date: 12/02/2013 ; Life Cycle Status: Active ; Vocabulary: SNOMED CT COPD (SNOMED CT :45053253 ) Name of Problem: COPD ; Recorder: Whitney Razo RN; Confirmation: Confirmed ; Classification: Patient Stated ; Code: 88101119 ; Contributor System: PowerChart ; Last Updated: 05/07/2014 9:10 EDT ; Life Cycle Date: 12/02/2013 ; Life Cycle Status: Active ; Vocabulary: SNOMED CT Diabetes mellitus (SNOMED CT :931816649 ) Name of Problem: Diabetes mellitus ; Recorder: Whitney Razo RN; Confirmation: Confirmed ; Classification: Patient Stated ; Code: 558993042 ; Contributor System: PowerChart ; Last Updated: 05/03/2014 19:25 EDT ; Life Cycle Date: 12/02/2013 ; Life Cycle Status: Active ; Vocabulary: SNOMED CT Diabetes mellitus type II (SNOMED CT :36538515 ) Name of Problem: Diabetes mellitus type II ; Recorder: Whitney Razo RN; Confirmation: Confirmed ; Classification: Patient Stated ; Code: 82867334 ; Contributor System: PowerChart ; Last Updated: 05/07/2014 9:12 EDT ; Life Cycle Date: 12/02/2013 ; Life Cycle Status: Active ; Vocabulary: SNOMED CT Diverticulosis (SNOMED CT :7321272071 ) Name of Problem: Diverticulosis ; Recorder: Whitney Razo RN; Confirmation: Confirmed ; Classification: Patient Stated ; Code: 3537886755 ; Contributor System: PowerChart ; Last Updated: 05/03/2014 19:25 EDT ; Life Cycle Date: 12/02/2013 ; Life Cycle Status: Active ; Vocabulary: SNOMED CT Edema (SNOMED CT :541557539 ) Name of Problem: Edema ; Recorder: Whitney Razo RN; Confirmation: Confirmed ; Classification: Patient Stated ; Code: 473137409 ; Contributor System: PowerChart ; Last Updated: 05/03/2014 19:25 EDT ; Life Cycle Date: 12/02/2013 ; Life Cycle Status: Active ; Vocabulary: SNOMED CT ; Comments: 12/02/2013 1:45 - Whitney Razo RN BLE Fibromyalgia (SNOMED CT :63012736 ) Name of Problem: Fibromyalgia ; Recorder: Whitney Razo RN; Confirmation: Confirmed ; Classification: Patient Stated ; Code: 78005012 ; Contributor System: PowerChart ; Last Updated: [...] GERD - Gastro-esophageal reflux disease (SNOMED CT :0133109070 ) Name of Problem: GERD - Gastro-esophageal reflux disease ; Recorder: Whitney Razo RN; Confirmation: Confirmed ; Classification: Patient Stated ; Code: 6032743025 ; Contributor System: PowerChart ; Last Updated: 05/07/2014 9:09 EDT ; Life Cycle Date: 12/02/2013 ; Life Cycle Status: Active ; Vocabulary: SNOMED CT Heart failure (SNOMED CT :849618383 ) Name of Problem: Heart failure ; Recorder: Whitney Razo RN; Confirmation: Confirmed ; Classification: Patient Stated ; Code: 748860615 ; Contributor System: PowerChart ; Last Updated: 05/03/2014 19:25 EDT ; Life Cycle Date: 12/02/2013 ; Life Cycle Status: Active ; Vocabulary: SNOMED CT Heart valve (SNOMED CT :676159506 ) Name of Problem: Heart valve ; Recorder: Whitney Razo RN; Confirmation: Confirmed ; Classification: Patient Stated ; Code: 609184912 ; Contributor System: PowerChart ; Last Updated: 05/07/2014 9:14 EDT ; Life Cycle Date: 12/02/2013 ; Life Cycle Status: Active ; Vocabulary: SNOMED CT Hepatomegaly (SNOMED CT :500347124 ) Name of Problem: Hepatomegaly ; Recorder: Whitney Razo RN; Confirmation: Confirmed ; Classification: Patient Stated ; Code: 877042753 ; Contributor System: PowerChart ; Last Updated: 05/03/2014 19:25 EDT ; Life Cycle Date: 12/02/2013 ; Life Cycle Status: Active ; Vocabulary: SNOMED CT High blood pressure (SNOMED CT :88119205 ) Name of Problem: High blood pressure ; Recorder: Whitney Razo RN; Confirmation: Confirmed ; Classification: Patient Stated ; Code: 79434332 ; Contributor System: PowerChart ; Last Updated: 05/03/2014 19:25 EDT ; Life Cycle Date: 12/02/2013 ; Life Cycle Status: Active ; Vocabulary: SNOMED CT Hyperlipidemia (SNOMED CT :12168946 ) Name of Problem: Hyperlipidemia ; Recorder: Whitney Razo RN; Confirmation: Confirmed ; Classification: Patient Stated ; Code: 84813875 ; Contributor System: PowerChart ; Last Updated: 05/03/2014 19:25 EDT ; Life Cycle Date: 12/02/2013 ; Life Cycle Status: Active ; Vocabulary: SNOMED CT Lazy eye (SNOMED CT :908595062 ) Name of Problem: Lazy eye ; Recorder: Whitney Razo RN; Confirmation: Confirmed ; Classification: Patient Stated ; Code: 825411883 ; Contributor System: PowerChart ; Last Updated: 05/03/2014 19:25 EDT ; Life Cycle Date: 12/02/2013 ; Life Cycle Status: Active ; Vocabulary: SNOMED CT ; Comments: 12/02/2013 0:49 - Whitney Razo RN lazy eye blindness (left eye) Myocardial infarction (SNOMED CT :94112643 ) Name of Problem: Myocardial infarction ; Recorder: Whitney Razo RN; Confirmation: Confirmed ; Classification: Patient Stated ; Code: 60019769 ; Contributor System: PowerChart ; Last Updated: [...] Cycle Status: Active Ovarian cyst (SNOMED CT :026274351 ) Name of Problem: Ovarian cyst ; Recorder: Whitney Razo RN; Confirmation: Confirmed ; Classification: Patient Stated ; Code: 712599639 ; Contributor System: PowerChart ; Last Updated: 05/03/2014 19:25 EDT ; Life Cycle Date: 12/02/2013 ; Life Cycle Status: Active ; Vocabulary: SNOMED CT Renal calculus (SNOMED CT :363376308 ) Name of Problem: Renal calculus ; Recorder: Whitney Razo RN; Confirmation: Confirmed ; Classification: Patient Stated ; Code: 507808082 ; Contributor System: PowerChart ; Last Updated: 05/03/2014 19:25 EDT ; Life Cycle Date: 12/02/2013 ; Life Cycle Status: Active ; Vocabulary: SNOMED CT Restless legs syndrome (SNOMED CT :22832458 ) Name of Problem: Restless legs syndrome ; Recorder: Whitney Razo RN; Confirmation: Confirmed ; Classification: Patient Stated ; Code: 70385842 ; Contributor System: PowerChart ; Last Updated: 05/03/2014 19:25 EDT ; Life Cycle Date: 12/02/2013 ; Life Cycle Status: Active ; Vocabulary: SNOMED CT Thyroid disease (SNOMED CT :558320813 ) Name of Problem: Thyroid disease ; Recorder: Whitney Razo RN; Confirmation: Confirmed ; Classification: Patient Stated ; Code: 580083397 ; Contributor System: PowerChart ; Last Updated: 05/03/2014 19:25 EDT ; Life Cycle Date: 12/02/2013 ; Life Cycle Status: Active ; Vocabulary: SNOMED CT Diagnoses(Active) Medical screening exam Date: 08/11/2021 ; Diagnosis Type: Reason For Visit ; Confirmation: Complaint of ; Clinical Dx: Medical screening exam ; Classification: Medical ; Clinical Service: Emergency medicine ; Code: PNED ; Probability: 0 ; Diagnosis Code: [id number] ED Height and Weight Height Source : Stated Height Entry Format : [place] Height, Feet : 5 ft(Converted to: 152 cm, 60 Inch) Height, Inches : 4 Inch(Converted to: 0 ft 4 Inch, 10.16 cm) Clinical Height : 162.56 cm Weight Source, ED : Critical estimated dosing weight Weight Entry Format : [place] Weight, Pounds : 190 lb Clinical Dosing Weight : 86.36 kg Body Surface Area (BSA) : 1.92 m2 Body Mass Index : 32.7 kg/m2 (HI) Omar Body Weight (IBW) : 54.3 kg MICHAEL NAM RN - 08/11/2021 16:19 EDT Electronically signed by Lanny [facility] Conversion Custodian Athletic Equipment Cerner at 03/09/2023 8:56 PM CDT documented in this encounter Plan of Treatment Not on file documented as of this encounter Visit Diagnoses Not on filedocumented in this encounter Care Teams Lead Business Systems Analyst Relationship Specialty Start Date End Date Reji Castro MD [address] [place] [id number] PCP - General Adolescent Medicine 10/02/22 documented as of this encounter
--- OUTSIDE RECORDS SUMMARY | 2025-05-10 10:18 | XMS_ITS | Encounter Summary ---
Author Organization [employer] Address [address] [place] [address] Care Team Providers Care Pool Cleaner Name Role Phone Reji Castro MD Primary Care Provider + [phone] Encounter Details Date Type Department Care Team (Late st Contact Info) Description 08/15/2021 Transcribed Document [facility] [place] [facility] [place] [address] ProviderDelvin MD [facility] [place] [address] Social History Tobacco Use Types Packs/Day Years [...] her port could not be accessed. Her records management director aspirated fluid from the port that was evidently purulent. I have not yet been able to track down that culture. After the aspiration she developed fever to 103, severe CHEUNG, myalgias and arthralgias. She [facility] to [facility]. She was in the hospital for 10 [...] antibiotics. On 08/08 she presented to a [facility] after she developed severe CHEUNG and myalgias w/o prominent fever. She was subsequently contacted and told to report to [facility] because she had + blood cutures concerning for an infected portacath +/- PVE. 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 Review of Systems ROS reviewed as documented in chart Health Status Current medications: (Selected) Inpatient Medications Ordered ALPRAZolam: 0.5 mg, Oral, TID, PRN: Anxiety CeleXA: 40 mg, Oral, Daily Coumadin: 6 mg, Oral, Daily Coumadin: 7.5 mg, Oral, Daily DAPTOmycin + Sodium Chloride 0.9% intravenous solution 50 mL: 700 mg, 14 mL, 128 mL/Hr, IV Piggyback, [id number] Dextrose 50% injection: 12.5 Gram, IV Push, Q15Min, PRN: Other (See Comment) Dextrose 50% injection: 25 Gram, IV Push, Q15Min, PRN: Other (See Comment) Dextrose 50% injection: 25 Gram, IV Push, Q15Min, PRN: Other (See Comment) Dextrose 50% injection: 25 Gram, IV Push, Q15Min, PRN: Other (See Comment) Lactated Ringers Injection intravenous solution 1,000 mL: 20 mL/Hr, IntraVENous Blaine 10 mg-325 mg oral tablet: 1 Tab, [...] No swelling, No deformity. Integumentary: Warm, [place]. Neurologic: Alert, Oriented, No focal deficits. Psychiatric: [...] of paula cath Electronically signed by Lanny [facility] Conversion Food And Beverage Controller Cerner at 03/09/2023 8:49 PM CDT documented in this encounter Plan of Treatment Not on file documented as of this encounter Visit Diagnoses Not on filedocumented in this encounter Care Teams Pool Cleaner Relationship Specialty Start Date End Date Reji Castro MD [address] [place] [id number] PCP - General Adolescent Medicine 10/02/22 documented as of this encounter
--- OUTSIDE RECORDS SUMMARY | 2025-05-10 10:18 | XMS_ITS | Encounter Summary ---
Author Organization [employer] Address [address] [place] [address] Care Team Providers Care Concrete Mixer Operator Name Role Phone Reji Castro MD Primary Care Provider [phone] Encounter Details Date Type Department Care Team (Late st Contact Info) Description 08/25/2021 Transcribed Document [facility] [place] Family Medicine [facility] [address] [place], [place] [id number] ProviderDelvin MD [address] [place] [address] Social History Tobacco Use Types Packs/Day Years [...] Warfarin HPI: 56 y/o F presenting to [facility] with history of COPD, atrial fibrillation, [...] cefTRIAXone: 2 Gram, 100 mL/Hr, IV Piggyback, [id number]. citalopram: 40 mg, Oral, Daily. diphenhydrAMINE: 25 [...] floor. Thank you, Andrea Moraes, PharmD PGY1 Driver Helper Pager: [phone] Ext. [phone] documented in this encounter Plan of Treatment Not on file documented as of this encounter Visit Diagnoses Not on filedocumented in this encounter Care Teams Concrete Mixer Operator Relationship Specialty Start Date End Date Reji Castro MD [address] [place] [address] PCP - General Adolescent Medicine 10/02/22 documented as of this encounter
--- OUTSIDE RECORDS SUMMARY | 2025-05-10 10:18 | XMS_ITS | Encounter Summary ---
Author Organization [employer] Address [address] [place] [address] Care Team Providers Care Intel Recruiter Name Role Phone Reji Castro MD Primary Care Provider [phone] Encounter Details Date Type Department Care Team (Late st Contact Info) Description 08/11/2021 Transcribed Document [facility] [place] [facility] [place] [address] ProviderDelvin MD [facility] [place] [address] Social History Tobacco Use Types Packs/Day Years [...] you, Noy Garrett, PharmD PGY-1 Resident Pager #[phone] documented in this encounter Plan of Treatment Not on file documented as of this encounter Visit Diagnoses Not on filedocumented in this encounter Care Teams Intel Recruiter Relationship Specialty Start Date End Date Reji Castro MD [address] [place] [address] PCP - General Adolescent Medicine 10/02/22 documented as of this encounter
--- OUTSIDE RECORDS SUMMARY | 2025-05-10 10:18 | XMS_ITS | Encounter Summary ---
Author Organization [employer] Address [address] [place] [address] Care Team Providers Care Senior Software Tester Name Role Phone Reji Castro MD Primary Care Provider [phone] Encounter Details Date Type Department Care Team (Late st Contact Info) Description 08/15/2021 Transcribed Document [facility] [place] Family Medicine [address] [place] [address] ProviderDelvin MD [address] [place] [address] Social History Tobacco Use Types Packs/Day Years [...] filedocumented in this encounter Care Teams Senior Software Tester Relationship Specialty Start Date End Date Reji Castro MD [address] [place] [address] PCP - General Adolescent Medicine 10/02/22 documented as of this encounter
--- OUTSIDE RECORDS SUMMARY | 2025-05-10 10:18 | XMS_ITS | Encounter Summary ---
Author Organization [employer] Address [address] [place] [address] Care Team Providers Care Unemployment Claims Adjudicator Name Role Phone Reji Castro MD Primary Care Provider + [phone] Encounter Details Date Type Department Care Team (Late st Contact Info) Description 08/25/2021 Transcribed Document [facility] [place] [address] [place], [place] [id number] ProviderDelvin MD [address] [place] [address] Social History Tobacco Use Types Packs/Day Years [...] cefTRIAXone: 2 Gram, 100 mL/Hr, IV Piggyback, [id number] diphenhydrAMINE: 25 mg, Oral, Q6H, PRN: Itching [...] Oral, BID cefTRIAXone 2 Gram, IV Piggyback, [id number] citalopram 20 mg tab 40 mg 2 [...] Bioprosthetic mitral valve replacement / SNOMED CT 217444389 / Confirmed Chronic kidney disease / SNOMED CT 8747731789 / Confirmed COPD - Chronic obstructive pulmonary disease / SNOMED CT 017049769 / Confirmed History of obstructive sleep apnea / IMO [id number] / Confirmed HLD - Hyperlipidemia / SNOMED CT 636287759 / Confirmed HTN - Hypertension / SNOMED CT 1355048123 / Confirmed Canceled: Atrial fibrillation / SNOMED CT 02233308, Active Problems (25) AIHA (autoimmune hemolytic anemia) [...] on filedocumented in this encounter Care Teams Unemployment Claims Adjudicator Relationship Specialty Start Date End Date Reji Castro MD [address] [place] [address] PCP - General Adolescent Medicine 10/02/22 documented as of this encounter
--- OUTSIDE RECORDS SUMMARY | 2025-05-10 10:18 | XMS_ITS | Encounter Summary ---
Author Organization [employer] Address [address] [place] [address] Care Team Providers Care Distribution Center Manager Name Role Phone Reji Castro MD Primary Care Provider [phone] Encounter Details Date Type Department Care Team (Late st Contact Info) Description 08/14/2021 Transcribed Document [facility] [place] Family Medicine [address] [place] [address] ProviderDelvin MD [address] [place] [address] Social History Tobacco Use Types Packs/Day Years [...] on filedocumented in this encounter Care Teams Distribution Center Manager Relationship Specialty Start Date End Date Reji Castro MD [address] [place] [address] PCP - General Adolescent Medicine 10/02/22 documented as of this encounter
--- OUTSIDE RECORDS SUMMARY | 2025-05-10 10:18 | XMS_ITS | Encounter Summary ---
Author Organization [employer] Address [address] [place] [address] Care Team Providers Care Java Developer Analyst Name Role Phone Reji Castro MD Primary Care Provider [phone] Encounter Details Date Type Department Care Team (Late st Contact Info) Description 08/11/2021 Transcribed Document [facility] [place] Medicine [address] [place] [address] ProviderDelvin MD [address] [place] [address] Social History Tobacco Use Types Packs/Day Years [...] 08/12/2021 9:33 EDT Electronically signed by Lanny [facility] Conversion Vice President Of Operations Cerner at 03/09/2023 8:39 PM CDT documented in this encounter Plan of Treatment Not on file documented as of this encounter Visit Diagnoses Not on filedocumented in this encounter Care Teams Java Developer Analyst Relationship Specialty Start Date End Date Reji Castro MD [address] [place] [address] PCP - General Adolescent Medicine 10/02/22 documented as of this encounter
--- OUTSIDE RECORDS SUMMARY | 2025-05-10 10:18 | XMS_ITS | Encounter Summary ---
Author Organization [employer] Address [address] [place] [address] Care Team Providers Care Cardiographer Name Role Phone Reji Castro MD Primary Care Provider [phone] Encounter Details Date Type Department Care Team (Late st Contact Info) Description 08/14/2021 Transcribed Document [facility] [place] [facility] [place] [address] ProviderDelvin [place] [facility] [place] [address] Social History Tobacco Use Types Packs/Day Years [...] # 0.71 x10(3)/uL (Low) 08/13/2021 23:47 EDT [place] % 10.6 % (High) 08/13/2021 23:47 EDT [place] # 0.58 K/uL 08/13/2021 23:47 EDT Eos [...] signed by [facility], [facility] Conversion Record Label Internship Cerner at 03/09/2023 8:31 PM CDT documented in this encounter Plan of Treatment Not on file documented as of this encounter Visit Diagnoses Not on filedocumented in this encounter Care Teams Cardiographer Relationship Specialty Start Date End Date Reji Castro MD [address] [place] [address] PCP - General Adolescent Medicine 10/02/22 documented as of this encounter
--- OUTSIDE RECORDS SUMMARY | 2025-05-10 10:18 | XMS_ITS | Encounter Summary ---
Author Organization [employer] Address [address] [place] [address] Care Team Providers Care Project Administrator Name Role Phone Reji Castro MD Primary Care Provider [phone] Encounter Details Date Type Department Care Team (Late st Contact Info) Description 08/26/2021 Transcribed Document [facility] [place] [address] [place] [address] ProviderDelvin MD [address] [place] [address] Social History Tobacco Use Types Packs/Day Years [...] 08/26/2021 4:16 EDT Electronically signed by Lanny [facility] Conversion Emergency Physician Cerner at 03/09/2023 8:32 PM CDT documented in this encounter Plan of Treatment Not on file documented as of this encounter Visit Diagnoses Not on filedocumented in this encounter Care Teams Project Administrator Relationship Specialty Start Date End Date Reji Castro MD [address] [place] [address] PCP - General Adolescent Medicine 10/02/22 documented as of this encounter
--- OUTSIDE RECORDS SUMMARY | 2025-05-10 10:18 | XMS_ITS | Encounter Summary ---
Author Organization [employer] Address [address] [place] [address] Care Team Providers Care Automobile Carpets Molder Name Role Phone Reji Saldaña MD Primary Care Provider + [phone] Encounter Details Date Type Department Care Team (Late st Contact Info) Description 08/14/2021 Transcribed Document [facility] [place] Family Medicine [address] [place], [place] [id number] ProviderDelvin MD [facility] [place] [address] Social History Tobacco Use Types Packs/Day Years [...] On: 08/14/2021 16:00 EDT by ALFREDO SEQUEIRA, RN-Jig Operator Initial Assessment I Previously Documented Living Environment [...] Patient's Home Caregiver Medical Durable Power of Missing Persons Investigator Name : No Legal Guardian : No ALFREDO SEQUEIRA RN-Jig Operator - 08/15/2021 8:27 EDT Initial Assessment II Sensory and Motor Deficits : None Current Home Treatments and Equipment : None ALFREDO SEQUEIRA RN-Jig Operator - 08/15/2021 8:27 EDT Discharge Needs I Anticipated Discharge Date : 08/16/2021 EDT Anticipated Discharge To, CM : Home with home health, Home with infusion therapy Current Home Treatment/Equipment : Current Home Treatment/Equipment No qualifying data available. Post Acute/Home Treatments : None Documentation Status Complete : Yes ALFREDO SEQUEIRA RN-Jig Operator - 08/15/2021 8:27 EDT Discharge Needs II Professional Skilled Services : Professional Skilled Services No qualifying data available. Needs Assistance with Transportation : No Discharge Options Discussed with Patient : DME, Home Health, Short term rehabilitation ALFREDO SEQUEIRA RN-Jig Operator - 08/15/2021 8:27 EDT Narrative Note Historical Narrative Note : rrs low boost 5 patient was admitted for staph infection /port removal . consults to neph, surg,ID. CHUCHO negative . patient 56 years old lives alone and is independent. patient face sheet address is wrong now address is : [address] [place]. patient denied need for dme. possible need for hh she thinks [facility] is the only one in her area. patient states she might need 4 weeks IV abx . patient is agreeable to hh and iv abx at home . cm will follow ALFREDO SEQUEIRA RN-Jig Operator - 08/15/21 08:39:27 Narrative Note : rrs low boost 5 patient was admitted for staph infection /port removal . consults to neph, surg,ID. CHUCHO negative . patient 56 years old lives alone and is independent. patient face sheet address is wrong now address is : [address] [place]. patient denied need for dme. possible need for hh she thinks [facility] is the only one in her area. patient states she might need 4 weeks IV abx . patient is agreeable to hh and iv abx at home . family will transport . cm will follow HUA, ALFREDO K, RN-Jig Operator - 08/15/2021 8:40 EDT Electronically signed by Lanny [facility] Conversion Local Area Network Systems Adminstrator Cerner at 03/09/2023 8:51 PM CDT documented in this encounter Plan of Treatment Not on file documented as of this encounter Visit Diagnoses Not on filedocumented in this encounter Care Teams Automobile Carpets Molder Relationship Specialty Start Date End Date Reji Saldaña MD [address] [place] [address] PCP - General Adolescent Medicine 10/02/22 documented as of this encounter
--- OUTSIDE RECORDS SUMMARY | 2025-05-10 10:18 | XMS_ITS | Encounter Summary ---
Author Organization [employer] Address [address] [place] [address] Care Team Providers Care Material Handling Supervisor Name Role Phone Reji Castro MD Primary Care Provider [phone] Encounter Details Date Type Department Care Team (Late st Contact Info) Description 08/19/2021 Transcribed Document [facility] [place] [facility] [place] [address] ProviderDelvin MD [facility] [place] [address] Social History Tobacco Use Types Packs/Day Years [...] # 0.34 x10(3)/uL (Low) 08/19/2021 11:06 EDT [place] % 7.3 % 08/19/2021 11:06 EDT [place] # 0.79 K/uL 08/19/2021 11:06 EDT Eos [...] (High) 08/18/2021 18:32 EDT Electronically signed by [facility], [facility] Conversion Clinical Informatics Specialist Cerner at 03/09/2023 8:42 PM CDT documented in this encounter Plan of Treatment Not on file documented as of this encounter Visit Diagnoses Not on filedocumented in this encounter Care Teams Material Handling Supervisor Relationship Specialty Start Date End Date Reji Castro MD [address] [place] [address] PCP - General Adolescent Medicine 10/02/22 documented as of this encounter
--- OUTSIDE RECORDS SUMMARY | 2025-05-10 10:18 | XMS_ITS | Encounter Summary ---
Author Organization [employer] Address [address] [place] [address] Care Team Providers Care Laboratory Coordinator Name Role Phone Reji Castro MD Primary Care Provider [phone] Encounter Details Date Type Department Care Team (Late st Contact Info) Description 08/14/2021 Transcribed Document [facility] [place] [facility] [place] [address] ProviderDelvin MD [facility] [place] [address] Social History Tobacco Use Types Packs/Day Years [...] Warfarin HPI: 56 y/o F presenting to [facility] with history of COPD, atrial [...] mg, 14 mL, 128 mL/Hr, IV Piggyback, [id number]. docusate-senna: 1 Tab, Oral, BID. famotidine: 20 [...] Encounter/Past 24 Hours) Creatinine Level 1.80 mg/dL [place] 08/14/2021 07:29 Bun/Creatinine 19.4 08/14/2021 00:14 Estimated [...] questions. Thank you, Andrea Moraes, PharmD PGY1 Senior Clinician Pager: [phone], Ext. [phone] Electronically signed by Lanny [facility] Conversion Sea Kayaking Guide Cerner at 03/09/2023 8:49 PM CDT documented in this encounter Plan of Treatment Not on file documented as of this encounter Visit Diagnoses Not on filedocumented in this encounter Care Teams Laboratory Coordinator Relationship Specialty Start Date End Date Reji Castro MD [address] [place] [address] PCP - General Adolescent Medicine 10/02/22 documented as of this encounter
--- OUTSIDE RECORDS SUMMARY | 2025-05-10 10:18 | XMS_ITS | Encounter Summary ---
Author Organization [employer] Address [address] [place] [address] Care Team Providers Care General Ophthalmologist Name Role Phone Reji Castro MD Primary Care Provider + [phone] Encounter Details Date Type Department Care Team (Late st Contact Info) Description 08/19/2021 Transcribed Document [facility] [place] [facility] [place] [address] ProviderDelvin MD [facility] [address] Social History Tobacco Use Types Packs/Day Years [...] her port could not be accessed. Her finisher accordion aspirated fluid from the port that was [...] On 08/08 she presented to a [facility] after she developed severe CHEUNG and myalgias w/o prominent fever. She was subsequently contacted and told to report to [facility] because she had + blood cutures concerning for an infected portacath +/- PVE. 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 Integumentary: Warm, [place]. Neurologic: Alert, Oriented, No focal deficits. Psychiatric: [...] on filedocumented in this encounter Care Teams General Ophthalmologist Relationship Specialty Start Date End Date Reji Castro MD [address] [place] [address] PCP - General Adolescent Medicine 10/02/22 documented as of this encounter
--- OUTSIDE RECORDS SUMMARY | 2025-05-10 10:18 | XMS_ITS | Encounter Summary ---
Author Organization [employer] Address [address] [place] [address] Care Team Providers Care Labor Delivery Rn Name Role Phone Reji Castro MD Primary Care Provider [phone] Encounter Details Date Type Department Care Team (Late st Contact Info) Description 08/26/2021 Transcribed Document [facility] [place] [address] [place] [address] ProviderDelvin MD [address] [place] [address] Social History Tobacco Use Types Packs/Day Years Used Date Smoking Tobacco: Never Assessed Comments Unknown Sex and Gender Information Value Date Recorded Sex Assigned at Not on file Legal Sex Female 4:32 PM CDT Gender Identity Not on file Sexual Orientation Not on file documented as of this encounter Miscellaneous Notes * Cerner Conversion Note - Delvin ProviderMD - 08/26/2021 2:00 AM CDT Low Pressure Kettle Operator Details Entered On: 08/26/2021 4:16 EDT Performed [...] on filedocumented in this encounter Care Teams Labor Delivery Rn Relationship Specialty Start Date End Date Reji Castro MD [address] [place] [address] PCP - General Adolescent Medicine 10/02/22 documented as of this encounter
--- OUTSIDE RECORDS SUMMARY | 2025-05-10 10:18 | XMS_ITS | Encounter Summary ---
Author Organization [employer] Address [address] [place] [address] Care Team Providers Care Outreach Librarian Name Role Phone Reji Castro MD Primary Care Provider [phone] Encounter Details Date Type Department Care Team (Late st Contact Info) Description 08/26/2021 Transcribed Document [facility] [place] [facility] [place] [address] ProviderDelvin MD [address] [place] [address] Social History Tobacco Use Types Packs/Day Years [...] HPI: 56 y/o F presenting to [facility] with history of COPD, atrial fibrillation, CKD [...] 2). Daily INR Will followZeyad PharmD, BCPS [phone] Electronically signed by Lanny, [facility] Conversion Medical Liaison Cerner at 03/09/2023 8:52 PM CDT documented in this encounter Plan of Treatment Not on file documented as of this encounter Visit Diagnoses Not on filedocumented in this encounter Care Teams Outreach Librarian Relationship Specialty Start Date End Date Reji Castro MD [address] [place] [address] PCP - General Adolescent Medicine 10/02/22 documented as of this encounter
--- OUTSIDE RECORDS SUMMARY | 2025-05-10 10:18 | XMS_ITS | Encounter Summary ---
Author Organization [facility] In iatives Address [address] [place] [address] Care Team Providers Care Spray Drier Operator Name Role Phone Reji Castro MD Primary Care Provider [phone] Encounter Details Date Type Department Care Team (Late st Contact Info) Description 08/19/2021 Transcribed Document [facility] Radiology [address] [place] [address] Loren Solorzano MD [address] [place] [address] [address] [place] [id number] Social History Tobacco Use Types Packs/Day Years [...] Bioprosthetic mitral valve replacement / SNOMED CT 198636955 / Confirmed Chronic kidney disease / SNOMED CT 6683265091 / Confirmed COPD - Chronic obstructive pulmonary disease / SNOMED CT 891143676 / Confirmed History of obstructive sleep apnea / IMO 26598917 / Confirmed HLD - Hyperlipidemia / SNOMED CT 342429066 / Confirmed HTN - Hypertension / SNOMED CT 5263061070 / Confirmed Canceled: Atrial fibrillation / SNOMED CT 83913257, Active Problems (25) AIHA (autoimmune hemolytic anemia) [...] Maximum Temp 99.1 (AUG 19 06:30) 98 ([facility] 00:00) 99.1 ([facility] 06:30) Apical HR 87 ([facility] 20:53) 87 ([facility] 20:53) 87 ([facility] 20:53) Mon HR 81 (AUG 19 06:30) 72 ([facility] 21:00) 87 ([facility] 15:27) Resp Rate 18 ([facility] 06:30) 16 ([facility] 00:00) 20 ([facility] 18:17) SBP 117 ([facility] 06:30) 94 ([facility] 21:00) 120 ([facility] 18:17) DBP 67 ([facility] 06:30) L 55 ([facility] 21:00) 67 ([facility] 06:30) MAP 85 ([facility] 06:30) 67 ([facility] 21:00) 87 ([facility] 18:17) SpO2 98 (AUG 19 06:30) L [...] data available Radiology Results (Last 48 hours) [id number] -- 08/11/2021 21:21 CR Chest 1 Vw [...] Hold home meds SSI #Depression Celexa #Pain [place] 10 mg every 6 hours as needed [...] on filedocumented in this encounter Care Teams Spray Drier Operator Relationship Specialty Start Date End Date Reji Castro MD [address] [place] [id number] PCP - General Adolescent Medicine 10/02/22 documented as of this encounter
--- OUTSIDE RECORDS SUMMARY | 2025-05-10 10:18 | XMS_ITS | Encounter Summary ---
Author Organization [employer] [facility] Address [address] [place] [address] Care Team Providers Care Manufacturing Tech Name Role Phone Reji Castro MD Primary Care Provider [phone] Encounter Details Date Type Department Care Team (Late st Contact Info) Description 08/19/2021 Transcribed Document [facility] [place] [address] [place] [address] ProviderDelvin MD [address] [place] [address] Social History Tobacco Use Types Packs/Day Years [...] 08/19/2021 11:39 EDT Electronically signed by Lanny [facility] Conversion Chestnut Tanner Cerner at 03/09/2023 8:47 PM CDT documented in this encounter Plan of Treatment Not on file documented as of this encounter Visit Diagnoses Not on filedocumented in this encounter Care Teams Manufacturing Tech Relationship Specialty Start Date End Date Reji Castro MD [address] [place] [id number] PCP - General Adolescent Medicine 10/02/22 documented as of this encounter
--- OUTSIDE RECORDS SUMMARY | 2025-05-10 10:18 | XMS_ITS | Encounter Summary ---
Author Organization [employer] In [facility] Address [address] [place] [address] Care Team Providers Care Radon Inspector Name Role Phone Reji Castro MD Primary Care Provider [phone] Encounter Details Date Type Department Care Team (Late st Contact Info) Description 08/20/2021 Transcribed Document [facility] [place] [address] ProviderDelvin MD [address] [place] [address] Social History Tobacco Use Types Packs/Day Years [...] 13:33 EDT by MADINA LOVETT, JEREMIAH - [place] GuideResort Housekeeper Progress Note Discharge Arrangements : Patient Post-Acute [...] Rounds? : Yes MADINA LOVETT RN - Mountain Or Glacier Guide - 08/20/2021 13:33 EDT Narrative Progress Note Narrative Progress Note : RRS Low Boost 5 Day 07/30 Patient was admitted for staph infection and port removal. She had a new port placed on 08/19. Patient needs to remain inpatient until her coumadin is at a therapeutic level per at [facility]. Patient will need IV rocephin until 09/08. Patient will need home health and says she has used [facility] home health in the past. CM will [...] is at a therapeutic level per at [facility]. Waiting on culture results for final abx plan. May need IV abx at home via port. Patient will need home health and lvies in [place]. [facility] home [facility] is a possibility. MADINA LOVETT RN - Mountain Or Glacier Guide - 08/19/21 15:40:22 RRS Low Boost 5 [...] will need home health and lives in [place]. [facility] home [facility] is a possibility. CM will continue to follow. DCP: MADINA LOVETT RN - [place] Or Glacier Guide - 08/18/21 15:47:49 (late entry from 08/15-) [...] and send referrals as appropriate. JULIO STEWART, RN-[place] Guide ED - 08/18/21 10:38:39 MADINA LOVETT, JEREMIAH - [place] Guide - 08/20/2021 13:33 EDT Electronically signed by [facility], [facility] Conversion Winderman Cerner at 03/09/2023 8:49 PM CDT documented in this encounter Plan of Treatment Not on file documented as of this encounter Visit Diagnoses Not on filedocumented in this encounter Care Teams Radon Inspector Relationship Specialty Start Date End Date Reji Castro MD [address] [place] [address] PCP - General Adolescent Medicine 10/02/22 documented as of this encounter
--- OUTSIDE RECORDS SUMMARY | 2025-05-10 10:18 | XMS_ITS | Encounter Summary ---
Author Organization [email or web address] In [facility]atives Address [address] [place] [address] Care Team Providers Care Formal Service Waiter Name Role Phone Reji Castro MD Primary Care Provider [phone] Encounter Details Date Type Department Care Team (Late st Contact Info) Description 08/19/2021 Transcribed Document [facility] [place] [address] [place] [address] ProviderDelvin MD [address] [place] [address] Social History Tobacco Use Types Packs/Day Years [...] on filedocumented in this encounter Care Teams Formal Service Waiter Relationship Specialty Start Date End Date Reji Castro MD [address] [place] [id number] PCP - General Adolescent Medicine 10/02/22 documented as of this encounter
--- OUTSIDE RECORDS SUMMARY | 2025-05-10 10:18 | XMS_ITS | Encounter Summary ---
Author Organization [employer] In [facility]atives Address [address] [place] [address] Care Team Providers Care Metal Furniture Assembly Supervisor Name Role Phone Reji Castro MD Primary Care Provider [phone] Encounter Details Date Type Department Care Team (Late st Contact Info) Description 08/20/2021 Transcribed Document [facility] [place] [facility] [place] [address] ProviderDelvin MD [facility] [place] [address] Social History Tobacco Use Types Packs/Day Years Used Date Smoking Tobacco: Never Assessed Comments Unknown Sex and Gender Information Value Date Recorded Sex Assigned at Not on file Legal Sex Female 4:32 PM CDT Gender Identity Not on file Sexual Orientation Not on file documented as of this encounter Miscellaneous Notes * Cerner Conversion Note - Delvin ProviderMD - 08/20/2021 2:00 AM CDT Software Firmware Engineer Details Entered On: 08/20/2021 3:08 EDT Performed [...] in this encounter Care Teams Metal Furniture Assembly Supervisor Relationship Specialty Start Date End Date Reji Castro MD [address] [place] [address] PCP - General Adolescent Medicine 10/02/22 documented as of this encounter
--- OUTSIDE RECORDS SUMMARY | 2025-05-10 10:18 | XMS_ITS | Encounter Summary ---
Author Organization [employer] In [facility] Address [address] [place] [address] Care Team Providers Care Art Therapy Certified Supervisor Name Role Phone Reji Castro MD Primary Care Provider [phone] Encounter Details Date Type Department Care Team (Late st Contact Info) Description 08/15/2021 Transcribed Document [facility] [place] [place] Medicine [facility] [address] ProvidereDlvin MD [address] [place] [address] Social History Tobacco Use Types Packs/Day Years [...] mL - 700 mg, IV Piggyback, Inj, [id number], infuse over 30 Minute(s), Routine Cardiovascular metoprolol [...] PRN for Pain (Severe 7-10), Routine acetaminophen-hydrocodone ([place] 10 mg-325 mg oral tablet) - 1 [...] 06:00) SBP 102 (AUG 15 09:37) 91 ([facility] 06:00) 108 ([facility] 17:21) DBP 61 (AUG 15 09:37) L 54 (AUG 15 06:00) 76 ([facility] 17:21) MAP 81 (AUG 15 09:37) 68 ([facility] 03:00) 86 ([facility] 17:21) SpO2 94 (AUG 15 06:00) L 91 ([facility] 22:00) 97 ([facility] 03:00) General: No acute distress. Eye: Extraocular [...] on filedocumented in this encounter Care Teams Art Therapy Certified Supervisor Relationship Specialty Start Date End Date Reji Castro MD [address] [place] [id number] PCP - General Adolescent Medicine 10/02/22 documented as of this encounter
--- OUTSIDE RECORDS SUMMARY | 2025-05-10 10:18 | XMS_ITS | Encounter Summary ---
Author Organization [employer] In [facility] Address [address] [place] [address] Care Team Providers Care Shear Operator Automatic Name Role Phone Reji Castro MD Primary Care Provider [phone] Encounter Details Date Type Department Care Team (Late st Contact Info) Description 08/11/2021 Transcribed Document [facility] [place] [address] [place] [address] ProviderDelvin MD [facility] [place] [address] Social History Tobacco Use Types Packs/Day Years [...] on filedocumented in this encounter Care Teams Shear Operator Automatic Relationship Specialty Start Date End Date Reji Castro MD [address] [place] [address] PCP - General Adolescent Medicine 10/02/22 documented as of this encounter
--- OUTSIDE RECORDS SUMMARY | 2025-05-10 10:18 | XMS_ITS | Encounter Summary ---
Author Organization [employer] In [facility]atives Address [address] [place] [address] Care Team Providers Care Railroad Surveyor Name Role Phone Reji Castro MD Primary Care Provider [phone] Encounter Details Date Type Department Care Team (Late st Contact Info) Description 08/11/2021 Transcribed Document [facility] Family [place] [facility] [place] [address] ProviderDelvin MD [address] [place] [address] Social History Tobacco Use Types Packs/Day Years [...] pin. Replacement, mitral valve, with cardiopulmonary bypass (40341). sternotomy. hernia repair, abdominal. sigmoid colon resection. Tendon sheath incision (eg, for trigger finger) (75885). jaw surgery, left. great toe surger, left. [...] % LOW Lymph # 0.76 K/uL LOW O'Brien % 8.9 % O'Brien # 0.61 K/uL Eos % 4.4 % Eos # 0.30 Baso % 0.4 % Baso # 0.03 Slide Review No PT 18.9 Second(s) HI INR 1.8 HI PTT 39.6 Second(s) HI Urine Type U CleanCatch Urine Color Yellow Urine Appearance Clear Urine Specific [place] 1.007 Urine pH Dipstick 6.5 Urine Leukocyte Esterase Negative Urine Nitrite Negative Urine Protein Dipstick Negative Urine Glucose Dipstick Negative Urine Ketones Dipstick Negative Urine Urobilinogen Dipstick 0.2 EU/dL Urine Bilirubin Dipstick Negative Urine Blood Dipstick Negative Ur WBC None Seen /HPF Ur Squamous Epithelial Cells 0-2 /HPF . Radiology results: Radiology Results (Last 48 hours) [id number] -- 08/11/2021 16:16 CR Chest 1 Vw [...] on filedocumented in this encounter Care Teams Railroad Surveyor Relationship Specialty Start Date End Date Reji Castro MD [address] [place] [address] PCP - General Adolescent Medicine 10/02/22 documented as of this encounter
--- OUTSIDE RECORDS SUMMARY | 2025-05-10 10:18 | XMS_ITS | Encounter Summary ---
Author Organization [email or web address] In [facility]atives Address [address] [place] [address] Care Team Providers Care Managing Partner Digital Content Marketing [employer] Name Role Phone Reji Castro MD Primary Care Provider [phone] Encounter Details Date Type Department Care Team (Late st Contact Info) Description 08/20/2021 Transcribed Document [facility] [place] [address] [place] [address] ProviderDelvin MD [address] [place] [address] Social History Tobacco Use Types Packs/Day Years [...] on filedocumented in this encounter Care Teams Managing Partner [employer] Relationship Specialty Start Date End Date Reji Castro MD [address] [place] [address] PCP - General Adolescent Medicine 10/02/22 documented as of this encounter
--- OUTSIDE RECORDS SUMMARY | 2025-05-10 10:18 | XMS_ITS | Encounter Summary ---
Author Organization [employer] In [facility] Address [address] [place] [address] Care Team Providers Care Stoker Erector And Servicer Name Role Phone Reji Castro MD Primary Care Provider [phone] Encounter Details Date Type Department Care Team (Late st Contact Info) Description 08/26/2021 Transcribed Document [facility] Family Medicine [address] [place] [address] ProviderDelvin MD [address] [place] [address] Social History Tobacco Use Types Packs/Day Years [...] cefTRIAXone: 2 Gram, 100 mL/Hr, IV Piggyback, [id number] diphenhydrAMINE: 25 mg, Oral, Q6H, PRN: Itching [...] Oral, BID cefTRIAXone 2 Gram, IV Piggyback, [id number] citalopram 20 mg tab 40 mg 2 [...] Bioprosthetic mitral valve replacement / SNOMED CT 604303676 / Confirmed Chronic kidney disease / SNOMED CT 2493790860 / Confirmed COPD - Chronic obstructive pulmonary disease / SNOMED CT 051712087 / Confirmed History of obstructive sleep apnea / IMO 57925257 / Confirmed HLD - Hyperlipidemia / SNOMED CT 716774996 / Confirmed HTN - Hypertension / SNOMED CT 0997699047 / Confirmed Canceled: Atrial fibrillation / SNOMED CT 61692416, Active Problems (25) AIHA (autoimmune hemolytic anemia) [...] Monitor GFR adjust medications. Electronically signed by [facility], [facility] Conversion Telephoto Engineer Cerner at 03/09/2023 8:56 PM CDT documented in this encounter Plan of Treatment Not on file documented as of this encounter Visit Diagnoses Not on filedocumented in this encounter Care Teams Stoker Erector And Servicer Relationship Specialty Start Date End Date eRji Castro MD [address] [place] [address] PCP - General Adolescent Medicine 10/02/22 documented as of this encounter
--- OUTSIDE RECORDS SUMMARY | 2025-05-10 10:18 | XMS_ITS | Encounter Summary ---
Author Organization [employer] [facility] [employer] Address [address] [place] [address] Care Team Providers Care Compounding And Finishing Supervisor Name Role Phone Reji Castro MD Primary Care Provider [phone] Encounter Details Date Type Department Care Team (Late st Contact Info) Description 08/19/2021 Transcribed Document [facility] [place] [facility] [place] [address] ProviderDelvin MD [address] [place] [address] Social History Tobacco Use Types Packs/Day Years [...] Phlebosclerosis. PROCEDURE PERFORMED: Right IJ PowerPort placement. TITLE OFFICER: Cherri Ya. ANESTHESIA: Local MAC. FINDINGS: An 8-Thai single lumen PowerPort was placed using a [...] and J-wire followed by passage of the 8-Thai single-lumen catheter. Once again, fluoroscopy was used [...] taken to the Recovery in stable condition. /[id number] MD DOTTIE Pollard/TONYA / DOTTIE / KEDNRA /[id number] documented in this encounter Plan of Treatment Not on file documented as of this encounter Visit Diagnoses Not on filedocumented in this encounter Care Teams Compounding And Finishing Supervisor Relationship Specialty Start Date End Date Reji Castro MD [address] [place] [address] PCP - General Adolescent Medicine 10/02/22 documented as of this encounter
--- OUTSIDE RECORDS SUMMARY | 2025-05-10 10:18 | XMS_ITS | Encounter Summary ---
Author Organization [employer] In [employer]atives Address [address] [place] [address] Care Team Providers Care Lpn Per Diem Name Role Phone Reji Castro MD Primary Care Provider [phone] Encounter Details Date Type Department Care Team (Late st Contact Info) Description 08/14/2021 Transcribed Document [facility] [place] [address] [place] [address] ProviderDelvin MD [address] [place] [address] Social History Tobacco Use Types Packs/Day Years [...] MD - 08/14/2021 7:[address] [facility] Main OR Preop Summary Primary Physician: NENA PEARSON [facility] Finalized Date/Time: 08/14/21 09:52:23 Pt. Name: IRINA TAMAYO/Sex: 1965 Female Med Rec #: [id number] Physician: VINCE BELLO MD Financial #: [id number] Pt. Type: I Room/Bed: 454/1 Admit/Disch: 08/11/21 21:21:00 - Institution: [facility] PreOp Case Times Entry 1 In Preop 08/14/21 06:28:00 Ready for Holding n/a Room Patient Ready for 08/14/21 06:46:00 Surgery Patient Out of Preop 08/14/21 07:32:00 Patient Out of n/a Holding Room Last Modified By: Charan Dutton Rn 08/14/21 09:52:22 [facility] PreOp Case Times Audit 08/14/21 09:52:22 Commissioning Editor: [id number] Modifier: [id number] <+> 1 Patient Out of Preop Finalized By: Charan Dutton, Rn Document Signatures Signed By: Charan Dutton Rn 08/14/21 09:52 Electronically signed by Lanny [facility] Conversion Fishing Tackle Repairer Cerner at 03/09/2023 8:46 PM CDT documented in this encounter Plan of Treatment Not on file documented as of this encounter Visit Diagnoses Not on filedocumented in this encounter Care Teams Lpn Per Diem Relationship Specialty Start Date End Date Reji Castro MD [address] [place] [address] PCP - General Adolescent Medicine 10/02/22 documented as of this encounter
--- OUTSIDE RECORDS SUMMARY | 2025-05-10 10:18 | XMS_ITS | Encounter Summary ---
Author Organization [employer] In [employer] Address [address] [place] [address] Care Team Providers Care Chain Link Fence Installer Name Role Phone Reji Castro MD Primary Care Provider [phone] Encounter Details Date Type Department Care Team (Late st Contact Info) Description 08/25/2021 Transcribed Document [facility] [place] [address] [place] [address] ProviderDelvin MD [address] [place] [address] Social History Tobacco Use Types Packs/Day Years [...] Event : Transfer to telemetry Rapid Response Chain Link Fence Installer #1 : ROBERTO KOHLI RN Rapid Response Chain Link Fence Installer #2 : ROBERTO CAMARA, CLAIM AGENT ROBERTO KOHLI RN - 08/25/2021 9:33 EDT [...] Chronic kidney disease, unspecified Heart failure, unspecified computer terminal operator (current) use of anticoagulants Medical screening [...] on filedocumented in this encounter Care Teams Chain Link Fence Installer Relationship Specialty Start Date End Date Reji Castro MD [address] [place] [address] PCP - General Adolescent Medicine 10/02/22 documented as of this encounter
--- OUTSIDE RECORDS SUMMARY | 2025-05-10 10:18 | XMS_ITS | Encounter Summary ---
Author Organization [employer] In [employer] Address [address] [place] [address] Care Team Providers Care Auto Radiator Specialist Name Role Phone Reji Castro MD Primary Care Provider [phone] Encounter Details Date Type Department Care Team (Late st Contact Info) Description 08/20/2021 Transcribed Document [facility] [place] Family Medicine [address] [place] [address] ProviderDelvin MD [address] [place] [address] Social History Tobacco Use Types Packs/Day Years [...] on filedocumented in this encounter Care Teams Auto Radiator Specialist Relationship Specialty Start Date End Date Reji Castro MD [address] [place] [address] PCP - General Adolescent Medicine 10/02/22 documented as of this encounter
--- OUTSIDE RECORDS SUMMARY | 2025-05-10 10:18 | XMS_ITS | Encounter Summary ---
Author Organization [employer] In [employer] Address [address] [place] [address] Care Team Providers Care Engineer Byproduct Name Role Phone Reji Castro MD Primary Care Provider [phone] Encounter Details Date Type Department Care Team (Late st Contact Info) Description 08/11/2021 Transcribed Document [facility] [place] [facility] [place] [address] ProviderDelvin MD [address] [place] [address] Social History Tobacco Use Types Packs/Day Years [...] 180 units of blood due to anemia[facility]. Primary Care Provider DEREK ROBISON DR History of Present Illness 56-year-old female with a history of COPD, atrial fibrillation, CKD unknown stage, type 2 diabetes, chronic anemia that has needed blood transfusions in the past, CAD, mitral valve replacement presents to [facility] emergency department in [place] after being told by outside provider that [...] fibrillation 5. Diabetes mellitus type II 6. [facility] current use of anticoagulant At risk for [...] # 0.76 K/uL (Low) 08/11/2021 17:59 EDT [place] % 8.9 % 08/11/2021 17:59 EDT [place] # 0.61 K/uL 08/11/2021 17:59 EDT Eos [...] Appearance CLEAR2 08/11/2021 17:59 EDT Urine Specific [place] 1.007 08/11/2021 17:59 EDT Urine pH Dipstick [...] Code, Continuous Order Electronically signed by Lanny [facility] Conversion Quantitative Associate Cerner at 03/09/2023 8:40 PM CDT documented in this encounter Plan of Treatment Not on file documented as of this encounter Visit Diagnoses Not on filedocumented in this encounter Care Teams Engineer Byproduct Relationship Specialty Start Date End Date Reji Castro MD [address] [place] [address] PCP - General Adolescent Medicine 10/02/22 documented as of this encounter
--- OUTSIDE RECORDS SUMMARY | 2025-05-10 10:18 | XMS_ITS | Encounter Summary ---
Author Organization [employer] In iatives Address [address] [place] [address] Care Team Providers Care Dispersion Mixer Name Role Phone Reji Castro MD Primary Care Provider [phone] Encounter Details Date Type Department Care Team (Late st Contact Info) Description 08/19/2021 Transcribed Document [facility] [place] [facility] [place] [address] ProviderDelvin MD [address] [place] [address] Social History Tobacco Use Types Packs/Day Years [...] 15:34 EDT by MADINA LOVETT, JEREMIAH - Blister Pack OperatorWeb Press Jogger Progress Note Discharge Arrangements : Patient Post-Acute [...] Rounds? : Yes MADINA LOVETT RN - Blister Pack Operator - 08/19/2021 15:34 EDT Narrative Progress Note [...] will need home health and lvies in [place]. [facility] is a possibility. Historical [...] will need home health and lives in [place]. [facility] home [facility] is a possibility. CM will continue to follow. DCP: MADINA LOVETT RN - Blister Pack Operator - 08/18/21 15:47:49 (late entry from [...] and send referrals as appropriate. JULIO STEWART RN-Blister Pack Operator ED - 08/18/21 10:38:39 BONY, MADINA, RN - Blister Pack Operator - 08/19/2021 15:34 EDT Electronically signed by Lanny [facility] Conversion Pie Maker Cerner at 03/09/2023 8:49 PM CDT documented in this encounter Plan of Treatment Not on file documented as of this encounter Visit Diagnoses Not on filedocumented in this encounter Care Teams Dispersion Mixer Relationship Specialty Start Date End Date Reji Castro MD [address] [place] [id number] PCP - General Adolescent Medicine 10/02/22 documented as of this encounter
--- OUTSIDE RECORDS SUMMARY | 2025-05-10 10:18 | XMS_ITS | Encounter Summary ---
Author Organization [employer] In iatives Address [address] [place] [address] Care Team Providers Care Consolidation Accountant Name Role Phone Reji Castro MD Primary Care Provider [phone] Encounter Details Date Type Department Care Team (Late st Contact Info) Description 08/14/2021 Transcribed Document [facility] [place] Family Medicine [address] [place] [address] ProviderDelvin MD [address] [place] [address] Social History Tobacco Use Types Packs/Day Years [...] Author: CHELI BEASLEY MD-CAR Basic Information Primary Spoilage Worker: Dr. Delmar Geronimo Planograph Operator: MD Nestor Subjective NAD Health Status Current [...] mL 700 mg 14 mL, IV Piggyback, [id number] famotidine 20 mg tab 20 mg 1 [...] of motion, Normal strength. Integumentary: Warm, Dry, [place]. Neurologic: Alert, Oriented. Psychiatric: Cooperative, Appropriate mood & affect. Results Review AUG 13 23:47 L 135 102 H 35 / H 114 4.2 29 H 1.80 \ SEP 22 23:47 \ L 8.1 / 5.5 206 / L 26.9 \ Cardiac Markers (Current Encounter/Past 24 Hours) CK 87 Units/Liter 08/13/2021 05:53 ProBNP 647 pg/mL NE 08/14/2021 00:14 Radiology Results (Last 48 hours) [id number] -- 08/11/2021 21:21 CR Abdomen 1 Vw [...] mechan MV, 4+ TR, no vegetation. Admitted [facility] 07/12, Negative CHUCHO, TTE for [...] appropriate per primary hosp service & primary antisqueak worker. Will sign-off, call if questions. RV w/ Dr. Sawyer 1 wk post DC. 08/13/21 Resume Toprol XL 25 mg QHS. Reinitiation of other HF meds as appropriate. 08/12/21 CHUCHO to assess for endocarditis & mechanical causes of hemolysis. Obtain records from [facility]. Check haptoglobin, LDH, reticulocyte count. Continue other current CV meds. Electronically signed by Lanny [facility] Conversion Lab Engineer Cerner at 03/09/2023 8:53 PM CDT documented in this encounter Plan of Treatment Not on file documented as of this encounter Visit Diagnoses Not on filedocumented in this encounter Care Teams Consolidation Accountant Relationship Specialty Start Date End Date Reji Castro MD [address] [place] [address] PCP - General Adolescent Medicine 10/02/22 documented as of this encounter
--- OUTSIDE RECORDS SUMMARY | 2025-05-10 10:18 | XMS_ITS | Encounter Summary ---
Author Organization [employer] In [employer] Address [address] [place] [address] Care Team Providers Care Log Peeler Name Role Phone Reji Castro MD Primary Care Provider [phone] Encounter Details Date Type Department Care Team (Late st Contact Info) Description 08/26/2021 Transcribed Document [facility] [place] [address] [place] [address] ProviderDelvin MD [address] [place] [address] Social History Tobacco Use Types Packs/Day Years [...] cefTRIAXone: 2 Gram, 100 mL/Hr, IV Piggyback, [id number] diphenhydrAMINE: 25 mg, Oral, Q6H, PRN: Itching [...] Oral, BID cefTRIAXone 2 Gram, IV Piggyback, [id number] citalopram 20 mg tab 40 mg 2 [...] Bioprosthetic mitral valve replacement / SNOMED CT 880807562 / Confirmed Chronic kidney disease / SNOMED CT 1667855368 / Confirmed COPD - Chronic obstructive pulmonary disease / SNOMED CT 412466745 / Confirmed History of obstructive sleep apnea / IMO 63521762 / Confirmed HLD - Hyperlipidemia / SNOMED CT 305635452 / Confirmed HTN - Hypertension / SNOMED CT 4633558099 / Confirmed Canceled: Atrial fibrillation / SNOMED CT 03781703, Active Problems (25) AIHA (autoimmune hemolytic anemia) [...] 29.0 \ Radiology Results (Last 48 hours) [id number] -- 08/11/2021 21:21 CR Chest 1 Vw Portable (08/25/2021 10:14) Result: PORTABLE CHEST 08/25/2021 9:34 AM HISTORY: Precordial chest pain .COMPARISON: August 22, 2021.FINDINGS: The heart is stable in size. The lung cisenros demonstrate nosignificant change in the diffuse interstitial [...] Hold home meds SSI Depression Celexa Pain [place] 10 mg every 6 hours as needed CODE STATUS. Full code Dispo: H/H stable, neg trops, clinically better need therapeutic inr for discharge, pharm managing. hopefully in am Time spent 26 minutes documented in this encounter Plan of Treatment Not on file documented as of this encounter Visit Diagnoses Not on filedocumented in this encounter Care Teams Log Peeler Relationship Specialty Start Date End Date Reji Castro MD [address] [place] [id number] PCP - General Adolescent Medicine 10/02/22 documented as of this encounter
--- OUTSIDE RECORDS SUMMARY | 2025-05-10 10:19 | XMS_ITS | Encounter Summary ---
Author Organization [employer] In iatives Address [address] [place] [address] Care Team Providers Care Special Effects Designer Name Role Phone Reji Castro MD Primary Care Provider [phone] Encounter Details Date Type Department Care Team (Late st Contact Info) Description 08/12/2021 Transcribed Document [facility] [place] [facility] [place] [address] ProviderDelvin MD [address] [place] [address] Social History Tobacco Use Types Packs/Day Years [...] on filedocumented in this encounter Care Teams Special Effects Designer Relationship Specialty Start Date End Date Reji Castro MD [address] [place] [id number] PCP - General Adolescent Medicine 10/02/22 documented as of this encounter
--- OUTSIDE RECORDS SUMMARY | 2025-05-10 10:19 | XMS_ITS | Encounter Summary ---
Author Organization [employer] In iatives Address [address] [place] [address] Care Team Providers Care Tank Tester Name Role Phone Reji Castro MD Primary Care Provider [phone] Encounter Details Date Type Department Care Team (Late st Contact Info) Description 08/21/2021 Transcribed Document [facility] [place] [address] [place] [address] ProviderDelvin MD [address] [place] [address] Social History Tobacco Use Types Packs/Day Years [...] on filedocumented in this encounter Care Teams Tank Tester Relationship Specialty Start Date End Date Reji Castro MD [address] [place] [address] PCP - General Adolescent Medicine 10/02/22 documented as of this encounter
--- OUTSIDE RECORDS SUMMARY | 2025-05-10 10:19 | XMS_ITS | Encounter Summary ---
Author Organization [employer] In [employer]atives Address [address] [place] [address] Care Team Providers Care Lead Presser Name Role Phone Reji Castro MD Primary Care Provider [phone] Encounter Details Date Type Department Care Team (Late st Contact Info) Description 08/16/2021 Transcribed Document [facility] [place] [facility] [place] [address] ProviderDelvin MD [address] [place] [address] Social History Tobacco Use Types Packs/Day Years [...] mL - 700 mg, IV Piggyback, Inj, [id number], infuse over 30 Minute(s), Routine Cardiovascular metoprolol [...] hrs) Last Charted Minimum Maximum Temp 98 ([facility] 10:50) 97.6 ([facility] 06:00) 98 ([facility] 18:00) Apical HR 76 ([facility] 20:32) 76 ([facility] 20:32) 76 ([facility] 20:32) Mon HR 81 (AUG 16 10:50) 67 ([facility] 14:52) 85 ([facility] 18:00) Resp Rate 18 (AUG 16 10:50) 14 (AUG 15 23:00) 19 ([facility] 18:00) SBP 112 (AUG 16 10:50) 95 ([facility] 14:52) 114 ([facility] 23:00) DBP 60 (AUG 16 10:50) L 45 ([facility] 14:52) 63 ([facility] 18:00) MAP 74 (AUG 16 10:50) 63 ([facility] 23:00) 83 ([facility] 18:00) SpO2 97 ([facility] 10:50) L 92 ([facility] 14:52) 99 (AUG 16 03:39) General: No [...] filedocumented in this encounter Care Teams Lead Presser Relationship Specialty Start Date End Date Reji Castro MD [address] [place] [id number] PCP - General Adolescent Medicine 10/02/22 documented as of this encounter
--- OUTSIDE RECORDS SUMMARY | 2025-05-10 10:19 | XMS_ITS | Encounter Summary ---
Author Organization [employer] In [employer]atives Address [address] [place] [address] Care Team Providers Care Chef Name Role Phone Reji Castro MD Primary Care Provider [phone] Encounter Details Date Type Department Care Team (Late st Contact Info) Description 08/12/2021 Transcribed Document [facility] [place] [facility] [place] [address] ProviderDelvin MD [facility] [place] [address] Social History Tobacco Use Types Packs/Day Years Used Date Smoking Tobacco: Never Assessed Comments Unknown Sex and Gender Information Value Date Recorded Sex Assigned at Not on file Legal Sex Female 4:32 PM CDT Gender Identity Not on file Sexual Orientation Not on file documented as of this encounter Miscellaneous Notes * [employer]ner Conversion Note - Delvin ProviderMD - 08/12/2021 2:00 AM CDT Manager Market Intelligence Details Entered On: 08/12/2021 0:22 EDT Performed [...] on filedocumented in this encounter Care Teams Chef Relationship Specialty Start Date End Date Reji Castro MD [address] [place] [address] PCP - General Adolescent Medicine 10/02/22 documented as of this encounter
--- OUTSIDE RECORDS SUMMARY | 2025-05-10 10:19 | XMS_ITS | Encounter Summary ---
Author Organization [employer] In [employer]atives Address [address] [place] [address] Care Team Providers Care Physician Relations Manager Name Role Phone Reji Castro MD Primary Care Provider [phone] Encounter Details Date Type Department Care Team (Late st Contact Info) Description 08/12/2021 Transcribed Document [facility] [place] [address] [place] [address] ProviderDelvin MD [address] [place] [address] Social History Tobacco Use Types Packs/Day Years [...] Health Plan: [employer] Policy Number: [id number] Authorization Number: Insurance 2 Health Plan: [place] Policy Number: [id number] Authorization Number: Insurance Primary Name : [employer] P[employer] Policy Number: [id number] Authorization Status-Primary : Awaiting callback Reference Number-Primary : Pend ref #[id number] Authorized Service Begin Date-Primary : 08/11/2021 EDT Authorization Comments-Primary : Pend ref no per Availity, reviewer has access to [employer] Historical Authorization Comments-Primary : No Authorization Comments Found JORGE VALLES, RN - 08/12/2021 14:07 EDT documented in this encounter Plan of Treatment Not on file documented as of this encounter Visit Diagnoses Not on filedocumented in this encounter Care Teams Physician Relations Manager Relationship Specialty Start Date End Date Reji Castro MD [address] [place] [address] PCP - General Adolescent Medicine 10/02/22 documented as of this encounter
--- OUTSIDE RECORDS SUMMARY | 2025-05-10 10:19 | XMS_ITS | Encounter Summary ---
Author Organization [employer] Address [address] [place] [address] Care Team Providers Care Block Sawyer Name Role Phone Reji Castro MD Primary Care Provider [phone] Encounter Details Date Type Department Care Team (Late st Contact Info) Description 08/17/2021 Transcribed Document [facility] Radiology [address] [place] [address] Loren Solorzano MD [address] [place] [address] [place] [id number] Social History Tobacco Use Types Packs/Day Years [...] mg, 14 mL, 128 mL/Hr, IV Piggyback, [id number] Dextrose 50% injection: 12.5 Gram, IV Push, [...] mL 700 mg 14 mL, IV Piggyback, U17YYgs famotidine 20 mg tab 20 mg 1 [...] Bioprosthetic mitral valve replacement / SNOMED CT 445314480 / Confirmed Chronic kidney disease / SNOMED CT 0479862123 / Confirmed COPD - Chronic obstructive pulmonary disease / SNOMED CT 320340601 / Confirmed History of obstructive sleep apnea / IMO 66482709 / Confirmed HLD - Hyperlipidemia / SNOMED CT 512944076 / Confirmed HTN - Hypertension / SNOMED CT 2838980162 / Confirmed Canceled: Atrial fibrillation / SNOMED CT 41423284, Active Problems (25) AIHA (autoimmune hemolytic anemia) [...] Hold home meds SSI #Depression Celexa #Pain [place] 10 mg every 6 hours as needed [...] on filedocumented in this encounter Care Teams Block Sawyer Relationship Specialty Start Date End Date Reji Castro MD [address] [place] [address] PCP - General Adolescent Medicine 10/02/22 documented as of this encounter
--- OUTSIDE RECORDS SUMMARY | 2025-05-10 10:19 | XMS_ITS | Encounter Summary ---
Author Organization [employer] Address [address] [place] [address] Care Team Providers Care Software Asset Manager Name Role Phone Reji Castro MD Primary Care Provider [phone] Encounter Details Date Type Department Care Team (Late st Contact Info) Description 08/12/2021 Transcribed Document [facility] [place] [facility] [place] [address] ProviderDelvin MD [facility] [place] [address] Social History Tobacco Use Types Packs/Day Years [...] her port could not be accessed. Her citrix engineer aspirated fluid from the port that was evidently purulent. I have not yet been able to track down that culture. After the aspiration she developed fever to 103, severe CHEUNG, myalgias and arthralgias. She was admitted to [facility]. She was in the hospital for 10 [...] antibiotics. On 08/08 she presented to a [facility] after she developed severe CHEUNG and myalgias w/o prominent fever. She was subsequently contacted and told to report to [facility] because she had + blood cutures concerning for an infected portacath +/- PVE. 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 Integumentary: Warm, [place]. Neurologic: Alert, Oriented, No focal deficits. Psychiatric: [...] -- Await CHUCHO Electronically signed by Lanny [facility] Conversion Commodities Clerk Cerner at 03/09/2023 9:02 PM CDT documented in this encounter Plan of Treatment Not on file documented as of this encounter Visit Diagnoses Not on filedocumented in this encounter Care Teams Software Asset Manager Relationship Specialty Start Date End Date Reji Castro MD [address] [place] [id number] PCP - General Adolescent Medicine 10/02/22 documented as of this encounter
--- OUTSIDE RECORDS SUMMARY | 2025-05-10 10:19 | XMS_ITS | Encounter Summary ---
Author Organization [employer] Address [address] [place] [address] Care Team Providers Care Clinical Cytogeneticist Scientist Name Role Phone Reji Castro MD Primary Care Provider [phone] Encounter Details Date Type Department Care Team (Late st Contact Info) Description 08/16/2021 Transcribed Document [facility] [place] [facility] [place] [address] ProviderDelvin MD [address] [place] [address] Social History Tobacco Use Types Packs/Day Years [...] mg, 14 mL, 128 mL/Hr, IV Piggyback, W38ROio. diphenhydrAMINE: 25 mg, Oral, Q6H, PRN: Itching. [...] questions. Thank you, Andrea Moraes, GwendolynD PGY1 Measurer Machine Pager: [phone], Ext. [phone] documented in this encounter Plan of Treatment Not on file documented as of this encounter Visit Diagnoses Not on filedocumented in this encounter Care Teams Clinical Cytogeneticist Scientist Relationship Specialty Start Date End Date Reji Castro MD [address] [place] [id number] PCP - General Adolescent Medicine 10/02/22 documented as of this encounter
--- OUTSIDE RECORDS SUMMARY | 2025-05-10 10:19 | XMS_ITS | Encounter Summary ---
Author Organization [employer] In [employer] Address [address] [place] [address] Care Team Providers Care Instrumentation Technologist Name Role Phone Reji Castro MD Primary Care Provider [phone] Encounter Details Date Type Department Care Team (Late st Contact Info) Description 08/12/2021 Transcribed Document [facility] [place] [address] [place] [address] ProviderDelvin MD [address] [place] [address] Social History Tobacco Use Types Packs/Day Years [...] on filedocumented in this encounter Care Teams Instrumentation Technologist Relationship Specialty Start Date End Date Reji Castro MD [address] [place] [id number] PCP - General Adolescent Medicine 10/02/22 documented as of this encounter
--- OUTSIDE RECORDS SUMMARY | 2025-05-10 10:19 | XMS_ITS | Encounter Summary ---
Author Organization [employer] Address [address] [place] [address] Care Team Providers Care Rpg Programmer Analyst Name Role Phone Reji Castro MD Primary Care Provider [phone] Encounter Details Date Type Department Care Team (Late st Contact Info) Description 08/17/2021 Transcribed Document [facility] [place] Medicine [facility] [place] [address] ProviderDelvin MD [facility] [place], [place] [address] Social History Tobacco Use Types Packs/Day Years Used Date Smoking Tobacco: Never Assessed Comments Unknown Sex and Gender Information Value Date Recorded Sex Assigned at Not on file Legal Sex Female 4:32 PM CDT Gender Identity Not on file Sexual Orientation Not on file documented as of this encounter Miscellaneous Notes * [employer]ner Conversion Note - Delvin ProviderMD - 08/17/2021 2:00 AM CDT Cvt Rn Details Entered On: 08/17/2021 1:07 EDT Performed [...] on filedocumented in this encounter Care Teams Rpg Programmer Analyst Relationship Specialty Start Date End Date Reji Castro MD [address] [place] [address] PCP - General Adolescent Medicine 10/02/22 documented as of this encounter
--- OUTSIDE RECORDS SUMMARY | 2025-05-10 10:19 | XMS_ITS | Encounter Summary ---
Author Organization [employer] Address [address] [place] [address] Care Team Providers Care Car Supplier Name Role Phone Reji Castro MD Primary Care Provider [phone] Encounter Details Date Type Department Care Team (Late st Contact Info) Description 08/16/2021 Transcribed Document [facility] Radiology [address] [place] [address] Loren Solorzano MD [address] [place] [address] [place] [id number] Social History Tobacco Use Types Packs/Day Years [...] mg, 14 mL, 128 mL/Hr, IV Piggyback, M45DJpt Dextrose 50% injection: 12.5 Gram, IV Push, [...] mL 700 mg 14 mL, IV Piggyback, [id number] famotidine 20 mg tab 20 mg 1 [...] Bioprosthetic mitral valve replacement / SNOMED CT 892011959 / Confirmed Chronic kidney disease / SNOMED CT 1646203765 / Confirmed COPD - Chronic obstructive pulmonary disease / SNOMED CT 033673715 / Confirmed History of obstructive sleep apnea / IMO 01736547 / Confirmed HLD - Hyperlipidemia / SNOMED CT 233758909 / Confirmed HTN - Hypertension / SNOMED CT 6928358431 / Confirmed Canceled: Atrial fibrillation / SNOMED CT 64806094, Active Problems (25) AIHA (autoimmune hemolytic anemia) [...] Charted Minimum Maximum Temp 98 ([facility] 10:50) 97.6 ([facility] [place] 06:00) 98 ([facility] [place] 18:00) Apical HR 76 ([facility] [place] 20:32) 76 ([facility] [place] 20:32) 76 ([facility] [place] 20:32) Mon HR 81 ([facility] 10:50) 67 ([facility] 14:52) 85 ([facility] [place] 18:00) Resp Rate 18 ([facility] [place] 10:50) 14 ([facility] [place] 23:00) 19 ([facility] [place] 18:00) SBP 112 ([facility] [place] 10[facility]50) 95 ([facility] [place] 14:52) 114 ([facility] [place] 23:00) DBP 60 ([facility] [place] 10:50) L 45 ([facility] [place] 14:52) 63 ([facility] [place] 18:00) MAP 74 ([facility] [place] 10:50) 63 ([facility] [place] 23:00) 83 ([facility] [place] 18:00) SpO2 97 ([facility] [place] 10:50) L 92 ([facility] [place] 14:52) 99 ([facility] 03:39) General: Alert and oriented, No acute [...] EDT BIN HERNANDEZ, DO-INT Discontinued Medications: acetaminophen-hydrocodone ([place] 10 mg-325 mg oral tablet) 1 Tab, [...] Hold home meds SSI #Depression Celexa #Pain [place] 10 mg every 6 hours as needed [...] filedocumented in this encounter Care Teams Car Supplier Relationship Specialty Start Date End Date Reji Castro MD [address] [place] [address] PCP - General Adolescent Medicine 10/02/22 documented as of this encounter
--- OUTSIDE RECORDS SUMMARY | 2025-05-10 10:19 | XMS_ITS | Encounter Summary ---
Author Organization [employer] Address [address] [place] [address] Care Team Providers Care Loading Dock Helper Name Role Phone Reji Castro MD Primary Care Provider [phone] Encounter Details Date Type Department Care Team (Late st Contact Info) Description 08/12/2021 Transcribed Document [facility] [place] [address] [place] [address] ProviderDelvin MD [address] [place] [address] Social History Tobacco Use Types Packs/Day Years [...] On: 08/12/2021 5:00 EDT by Morelia Jose, [facility] Unit Coord Height and Weight, Routine Routine Weight Source : Standing scale Routine Weight Entry Format : Heaters Routine Weight, Pounds : 223 lb Routine Weight, Ounces : 4 oz Routine Weight Calculation : 101.48 kg Height Source : Stated Height Entry Format : Heaters Height, Feet : 5 ft Height, Inches : 4 Inch Clinical Height : 162.56 cm Body Surface Area (BSA), Routine : 2.05 m2 Body Mass Index (BMI), Routine : 38.4 kg/m2 Morelia Jose, Head School Custodian-Health Unit Coord - 08/12/2021 5:18 EDT documented in this encounter Plan of Treatment Not on file documented as of this encounter Visit Diagnoses Not on filedocumented in this encounter Care Teams Loading Dock Helper Relationship Specialty Start Date End Date Reji Castro MD [address] [place] [address] PCP - General Adolescent Medicine 10/02/22 documented as of this encounter
--- OUTSIDE RECORDS SUMMARY | 2025-05-10 10:19 | XMS_ITS | Encounter Summary ---
Author Organization [employer] Address [address] [place] [address] Care Team Providers Care Lead Pl Sql Developer Name Role Phone Reji Castro MD Primary Care Provider [phone] Encounter Details Date Type Department Care Team (Late st Contact Info) Description 08/16/2021 Transcribed Document [facility] [place] Family Medicine [address] [place] [address] ProviderDelvin MD [facility] [place] [address] Social History Tobacco Use Types Packs/Day Years Used Date Smoking Tobacco: Never Assessed Comments Unknown Sex and Gender Information Value Date Recorded Sex Assigned at Not on file Legal Sex Female 4:32 PM CDT Gender Identity Not on file Sexual Orientation Not on file documented as of this encounter Miscellaneous Notes * Cerner Conversion Note - Delvin ProviderMD - 08/16/2021 2:00 AM CDT Surgeon/President Details Entered On: 08/16/2021 2:41 EDT Performed [...] filedocumented in this encounter Care Teams Lead Pl Sql Developer Relationship Specialty Start Date End Date Reji Castro MD [address] [place] [address] PCP - General Adolescent Medicine 10/02/22 documented as of this encounter
--- OUTSIDE RECORDS SUMMARY | 2025-05-10 10:19 | XMS_ITS | Encounter Summary ---
Author Organization [employer] Address [address] [place] [address] Care Team Providers Care Manager Logistic Name Role Phone Reji Castro MD Primary Care Provider [phone] Encounter Details Date Type Department Care Team (Late st Contact Info) Description 08/25/2021 Transcribed Document [facility] [place] Family Medicine [address] [place] [address] ProviderDelvin MD [address] [place] [address] Social History Tobacco Use Types Packs/Day Years [...] than 8. she tells me that her fretted instruments inspector has recommended she stay above 8 for [...] cefTRIAXone: 2 Gram, 100 mL/Hr, IV Piggyback, [id number] diphenhydrAMINE: 25 mg, Oral, Q6H, PRN: Itching [...] Oral, BID cefTRIAXone 2 Gram, IV Piggyback, [id number] citalopram 20 mg tab 40 mg 2 [...] Bioprosthetic mitral valve replacement / SNOMED CT 173044815 / Confirmed Chronic kidney disease / SNOMED CT 5630113002 / Confirmed COPD - Chronic obstructive pulmonary disease / SNOMED CT 174736734 / Confirmed History of obstructive sleep apnea / IMO 71486107 / Confirmed HLD - Hyperlipidemia / SNOMED CT 397442886 / Confirmed HTN - Hypertension / SNOMED CT 3336257426 / Confirmed Canceled: Atrial fibrillation / SNOMED CT 82988457, Active Problems (25) AIHA (autoimmune hemolytic anemia) [...] 26.5 \ Radiology Results (Last 48 hours) [id number] -- 08/11/2021 21:21 CR Chest 1 Vw [...] Hold home meds SSI Depression Celexa Pain Maysel 10 mg every 6 hours as needed CODE STATUS. Full code Dispo: H/H stable, will transfuse one unit prbcs to reach goal hgb f/u trop need therapeutic inr for discharge, pharm managing Time spent 26 minutes Electronically signed by Lanny [facility] Conversion Industrial Maintenance Repairer Cerner at 03/09/2023 8:51 PM CDT documented in this encounter Plan of Treatment Not on file documented as of this encounter Visit Diagnoses Not on filedocumented in this encounter Care Teams Manager Logistic Relationship Specialty Start Date End Date Reji Castro MD [address] [place] [address] PCP - General Adolescent Medicine 10/02/22 documented as of this encounter
--- OUTSIDE RECORDS SUMMARY | 2025-05-10 10:19 | XMS_ITS | Encounter Summary ---
Author Organization [email or web address] Address [address] [place] [address] Care Team Providers Care Drying Tunnel Operator Name Role Phone Reji Castro MD Primary Care Provider [phone] Encounter Details Date Type Department Care Team (Late st Contact Info) Description 08/21/2021 Transcribed Document [facility] [place] Replaced by [facility] [place] [address] ProviderDelvin MD [address] [place] [address] Social History Tobacco Use Types Packs/Day Years [...] cefTRIAXone: 2 Gram, 100 mL/Hr, IV Piggyback, [id number] diphenhydrAMINE: 25 mg, Oral, Q6H, PRN: Itching [...] Oral, BID cefTRIAXone 2 Gram, IV Piggyback, [id number] citalopram 20 mg tab 40 mg 2 [...] History of obstructive sleep apnea / IMO 85442186 / Confirmed Bioprosthetic mitral valve replacement / SNOMED CT 987654141 / Confirmed Chronic kidney disease / SNOMED CT 9054617572 / Confirmed COPD - Chronic obstructive pulmonary disease / SNOMED CT 047178538 / Confirmed HTN - Hypertension / SNOMED CT 1350014299 / Confirmed HLD - Hyperlipidemia / SNOMED CT 414684814 / Confirmed Amblyopia / SNOMED CT 8959103423 / Confirmed 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 / SNOMED CT 556739394 / Confirmed Myocardial infarction / SNOMED CT 81456405 / Confirmed Atrial fibrillation / SNOMED CT 65768817 / Confirmed GERD - Gastro-esophageal reflux disease / SNOMED CT 5458522068 / Confirmed Diverticulosis / SNOMED CT 1745087662 / Confirmed Hepatomegaly / SNOMED CT 304466172 / Confirmed Renal calculus / SNOMED CT 513296016 / Confirmed Ovarian cyst / SNOMED CT 629491467 / Confirmed Arthritis / SNOMED CT 4673602 / Confirmed Back pain / PNED [id number] / Confirmed Fibromyalgia / SNOMED CT 28456171 / Confirmed Restless legs syndrome / SNOMED CT 34784432 / Confirmed Diabetes mellitus type II / SNOMED CT 06371869 / Confirmed Thyroid disease / SNOMED CT 938042192 / Confirmed Edema / SNOMED CT 560310178 / Confirmed BLE neuropathy hands and feet / Confirmed frequent headache / Confirmed AIHA (autoimmune hemolytic anemia) / SNOMED CT 5749603172 / Confirmed Resolved: Bronchitis / SNOMED CT 89678883 Resolved: Bowel obstruction / SNOMED CT 533030190 Canceled: Atrial fibrillation / SNOMED CT 66814265 Canceled: Lazy eye / SNOMED CT 885837195 lazy eye blindness (left eye) Canceled: Heart failure / SNOMED CT 302051438 Canceled: Heart valve / SNOMED CT 889404627 Canceled: High blood pressure / SNOMED CT 34490059 Canceled: Hyperlipidemia / SNOMED CT 93000316 Canceled: Cardiac arrhythmia / SNOMED CT 1921364899 Canceled: COPD / SNOMED CT 81491415 Canceled: Diabetes mellitus / SNOMED CT 820692989 Canceled: Anemia, iron deficiency / SNOMED CT 229141711, Active Problems (25) AIHA (autoimmune hemolytic anemia) [...] EDT Height Source Stated Height Entry Format Potter Height/Length, PRYDEINIG (ft) 5 ft Height/Length PRYDEINIG 4 Inch CLINICALHEIGHT 162.56 cm Routine Weight Source Standing scale Routine Weight Entry Format Potter Routine Weight, Pounds 204 lb Routine Weight, [...] on filedocumented in this encounter Care Teams Drying Tunnel Operator Relationship Specialty Start Date End Date Reji Castro MD [address] [place] [address] PCP - General Adolescent Medicine 10/02/22 documented as of this encounter
--- OUTSIDE RECORDS SUMMARY | 2025-05-10 10:19 | XMS_ITS | Encounter Summary ---
Author Organization [employer] Address [address] [place] [address] Care Team Providers Care Sales Representative Adding Machines Name Role Phone Reji Castro MD Primary Care Provider [phone] Encounter Details Date Type Department Care Team (Late st Contact Info) Description 08/19/2021 Transcribed Document [facility] [place] Family Medicine [address] [place] [address] ProviderDelvin MD [address] [place] [address] Social History Tobacco Use Types Packs/Day Years [...] Celestin MD - 08/19/2021 7:30 AM CDT [facility] Main OR Preop Summary Primary Physician: NENA PEARSON MD-[facility] Finalized Date/Time: 08/19/21 07:37:55 Pt. Name: IRINA TAMAYO/Sex: 1965 Female Med Rec #: [id number] Physician: VINCE BELLO MD Financial #: [id number] Pt. Type: I Room/Bed: 454/1 Admit/Disch: 08/11/21 21:21:00 - Institution: [facility] PreOp Case Times Entry 1 In Preop 08/19/21 05:49:00 Ready for Holding n/a Room Patient Ready for 08/19/21 06:35:00 Surgery Patient Out of Preop 08/19/21 07:33:00 Patient Out of n/a Holding Room Last Modified By: Merle Hicks Rn 08/19/21 07:37:50 [facility] PreOp Case Times Audit 08/19/21 07:37:50 Baseball Club Manager: [email or web address] Modifier: MFWARD <+> 1 Patient Out of Preop Finalized By: Merle Hicks Rn Document Signatures Signed By: Merle Hicks Rn 08/19/21 07:37 Electronically signed by Lanny [facility] Conversion Bond Runner Cerner at 03/09/2023 8:32 PM CDT documented in this encounter Plan of Treatment Not on file documented as of this encounter Visit Diagnoses Not on filedocumented in this encounter Care Teams Sales Representative Adding Machines Relationship Specialty Start Date End Date Reji Castro MD [address] [place] [address] PCP - General Adolescent Medicine 10/02/22 documented as of this encounter
--- OUTSIDE RECORDS SUMMARY | 2025-05-10 10:19 | XMS_ITS | Encounter Summary ---
Author Organization [employer] Address [address] [place] [address] Care Team Providers Care Auto Service Mechanic Name Role Phone Reji Castro MD Primary Care Provider [phone] Encounter Details Date Type Department Care Team (Late st Contact Info) Description 08/12/2021 Transcribed Document [facility] [place] Family Medicine [address] [place] [address] ProviderDelvin MD [address] [place] [address] Social History Tobacco Use Types Packs/Day Years [...] filedocumented in this encounter Care Teams Auto Service Mechanic Relationship Specialty Start Date End Date Reji Castro MD [address] [place] [address] PCP - General Adolescent Medicine 10/02/22 documented as of this encounter
--- OUTSIDE RECORDS SUMMARY | 2025-05-10 10:19 | XMS_ITS | Encounter Summary ---
Author Organization [employer] Address [address] [place] [address] Care Team Providers Care Heating Element Repairer Name Role Phone Reji Castro MD Primary Care Provider [phone] Encounter Details Date Type Department Care Team (Late st Contact Info) Description 08/16/2021 Transcribed Document [facility] [place] [address] [place] [address] ProviderDelvin MD [address] [place] [address] Social History Tobacco Use Types Packs/Day Years [...] on filedocumented in this encounter Care Teams Heating Element Repairer Relationship Specialty Start Date End Date Reji Castro MD [address] [place] [address] PCP - General Adolescent Medicine 10/02/22 documented as of this encounter
--- OUTSIDE RECORDS SUMMARY | 2025-05-10 10:19 | XMS_ITS | Encounter Summary ---
Author Organization [employer] Address [address] [place] [address] Care Team Providers Care Tree Fruit And Nut Crops Farmer Name Role Phone Reji Castro MD Primary Care Provider + [phone] Encounter Details Date Type Department Care Team (Late st Contact Info) Description 08/16/2021 Transcribed Document [facility] [place] Family Medicine [address] [place] [address] ProviderDelvin MD [address] [place] [address] Social History Tobacco Use Types Packs/Day Years [...] on filedocumented in this encounter Care Teams Tree Fruit And Nut Crops Farmer Relationship Specialty Start Date End Date Reji Castro MD [address] [place] [address] PCP - General Adolescent Medicine 10/02/22 documented as of this encounter
--- OUTSIDE RECORDS SUMMARY | 2025-05-10 10:19 | XMS_ITS | Encounter Summary ---
Author Organization [employer] Address [address] [place] [address] Care Team Providers Care Roof Bolter Helper Name Role Phone Reji Castro MD Primary Care Provider [phone] Encounter Details Date Type Department Care Team (Late st Contact Info) Description 08/12/2021 Transcribed Document [facility] [place] [address] [place], [place] [address] ProviderDelvin MD [address] [place] [address] Social History Tobacco Use Types Packs/Day Years [...] On: 08/12/2021 8:46 EDT by TAWNYA AVILES, PACKAGING CLERK Bronchodilator Assessment Score, RT Pulmonary History, [...] TAWNYA AVILES RRT - 08/12/2021 8:46 EDT Electronically signed by [employer] Conversion Residential Real Estate Sales Manager Cerner at 03/09/2023 8:59 PM CDT documented in this encounter Plan of Treatment Not on file documented as of this encounter Visit Diagnoses Not on filedocumented in this encounter Care Teams Roof Bolter Helper Relationship Specialty Start Date End Date Reji Castro MD [address] [place] [address] PCP - General Adolescent Medicine 10/02/22 documented as of this encounter
--- OUTSIDE RECORDS SUMMARY | 2025-05-10 10:19 | XMS_ITS | Encounter Summary ---
Author Organization [employer] Address [address] [place] [address] Care Team Providers Care Veterinary Assistant Name Role Phone Reji Castro MD Primary Care Provider [phone] Encounter Details Date Type Department Care Team (Late st Contact Info) Description 08/21/2021 Transcribed Document [facility] [place] Family [place] [address] ProviderDelvin MD [facility] [place] [address] Social History Tobacco Use Types Packs/Day Years Used Date Smoking Tobacco: Never Assessed Comments Unknown Sex and Gender Information Value Date Recorded Sex Assigned at Not on file Legal Sex Female 4:32 PM CDT Gender Identity Not on file Sexual Orientation Not on file documented as of this encounter Miscellaneous Notes * Cerner Conversion Note - Delvin ProviderMD - 08/21/2021 2:00 AM CDT Microbiology Quality Control Technician Details Entered On: 08/21/2021 6:32 EDT Performed [...] on filedocumented in this encounter Care Teams Veterinary Assistant Relationship Specialty Start Date End Date Reji Castro MD [address] [place] [address] PCP - General Adolescent Medicine 10/02/22 documented as of this encounter
--- OUTSIDE RECORDS SUMMARY | 2025-05-10 10:19 | XMS_ITS | Encounter Summary ---
Author Organization [employer] Address [address] [place] [address] Care Team Providers Care Operations Analyst Name Role Phone Reji Castro MD Primary Care Provider [phone] Encounter Details Date Type Department Care Team (Late st Contact Info) Description 08/12/2021 Transcribed Document [facility] [place] [facility] [place] [address] ProviderDelvin MD [address] [place] [address] Social History Tobacco Use Types Packs/Day Years [...] Vancomycin HPI: 56 y/o F presenting to [facility] with history of COPD, atrial [...] Encounter/Past 24 Hours) Creatinine Level 2.40 mg/dL NH 08/12/2021 01:05 Bun/Creatinine 28.8 NH 08/12/2021 01:05 Est. CrCl: 35 mL/min Intake [...] questions. Thank you, Andrea Moraes, PharmD PGY1 Hot Die Press Operator Pager: [phone] Ext. [phone] Electronically signed by Lanny, [facility] Conversion Back Tufter Cerner at 03/09/2023 8:45 PM CDT documented in this encounter Plan of Treatment Not on file documented as of this encounter Visit Diagnoses Not on filedocumented in this encounter Care Teams Operations Analyst Relationship Specialty Start Date End Date Reji Castro MD [address] [place] [address] PCP - General Adolescent Medicine 10/02/22 documented as of this encounter
--- OUTSIDE RECORDS SUMMARY | 2025-05-10 10:19 | XMS_ITS | Encounter Summary ---
Author Organization [employer] Address [address] [place] [address] Care Team Providers Care Automatic Pinsetter Mechanic Name Role Phone Reji Castro MD Primary Care Provider [phone] Encounter Details Date Type Department Care Team (Late st Contact Info) Description 08/21/2021 Transcribed Document [facility] [place] Family Medicine [facility] [place] [address] ProviderDelvin MD [facility] [place] [address] Social History Tobacco Use Types Packs/Day Years [...] Warfarin HPI: 56 y/o F presenting to [facility] with history of COPD, [...] cefTRIAXone: 2 Gram, 100 mL/Hr, IV Piggyback, C65HNei. citalopram: 40 mg, Oral, Daily. diphenhydrAMINE: 50 [...] questions. Thank you, Andrea Moraes, PharmD PGY1 Scientist Immunology Pager: [phone]. [phone] Electronically signed by Lanny [facility] Conversion Lead Mason Tender Cerner at 03/09/2023 8:45 PM CDT documented in this encounter Plan of Treatment Not on file documented as of this encounter Visit Diagnoses Not on filedocumented in this encounter Care Teams Automatic Pinsetter Mechanic Relationship Specialty Start Date End Date Reji Castro MD [address] [place] [address] PCP - General Adolescent Medicine 10/02/22 documented as of this encounter
--- OUTSIDE RECORDS SUMMARY | 2025-05-10 10:19 | XMS_ITS | Encounter Summary ---
Author Organization [employer] Address [address] [place] [address] Care Team Providers Care Central Supply Worker Name Role Phone Reji Castro MD Primary Care Provider + [phone] Encounter Details Date Type Department Care Team (Late st Contact Info) Description 08/12/2021 Transcribed Document [facility] [place] Family Medicine [facility] [place] [address] ProviderDelvin MD [address] [place] [address] Social History Tobacco Use Types Packs/Day Years [...] difficulty recalling timeline of events. Discharged from [facility] approximately 3 weeks ago after being treated [...] mmol/L (Low) 08/11/2021 17:59 EDT Sodium Ur [place] 29 mMole/Liter 08/12/2021 03:40 EDT Troponin I [...] # 0.76 K/uL (Low) 08/11/2021 17:59 EDT [place] % 9.5 % 08/12/2021 00:22 EDT [place] % 8.9 % 08/11/2021 17:59 EDT [place] # 0.64 K/uL 08/12/2021 00:22 EDT [place] # 0.61 K/uL 08/11/2021 17:59 EDT Eos [...] Appearance CLEAR2 08/11/2021 17:59 EDT Urine Specific [place] 1.007 08/11/2021 17:59 EDT Urine pH Dipstick [...] Negative2 08/11/2021 19:38 EDT Electronically signed by [facility] Conversion Military Source Operations Officer Cerner at 03/09/2023 9:01 PM CDT documented in this encounter Plan of Treatment Not on file documented as of this encounter Visit Diagnoses Not on filedocumented in this encounter Care Teams Central Supply Worker Relationship Specialty Start Date End Date Reji Castro MD [address] [place] [address] PCP - General Adolescent Medicine 10/02/22 documented as of this encounter
--- OUTSIDE RECORDS SUMMARY | 2025-05-10 10:19 | XMS_ITS | Encounter Summary ---
Author Organization [employer] In iatives Address [address] [place] [address] Care Team Providers Care Garbage Collection Supervisor Name Role Phone Reji Castro MD Primary Care Provider + [phone] Encounter Details Date Type Department Care Team (Late st Contact Info) Description 08/12/2021 Transcribed Document [facility] [place] [address] [place] [address] ProviderDelvin MD [address] [place] [address] Social History Tobacco Use Types Packs/Day Years [...] Author: CHELI BEASLEY MD-CAR Basic Information Primary Mgmt Specialist: Dr. Delmar Geronimo Door Opener: MD Nestor Chief Complaint Rule out endocarditis/h.o [...] She followed up that week with her Transportation Clerk, Dr. Thapa, who aspirated purulence from the port. 10-15 min later, she was driving home and developed fever 103, chills, headache and body aches. Presented to [facility] where she was admitted for IV ABX [...] ID evaluation. She presented for evaluation at [facility]. In the ER she was found to [...] Instructions Problem list: All Problems Amblyopia / 2145596265 / Confirmed Arthritis / 6158369 / Confirmed Atrial fibrillation / 73183098 / Confirmed AIHA (autoimmune hemolytic anemia) / 0197090396 / Confirmed Back pain / [id number] / Confirmed Bowel obstruction / 692876743 / Confirmed Bronchitis / 13289610 / Confirmed Cardiac arrhythmia / 2359342465 / Confirmed Cardiomyopathy / 949286003 / Confirmed COPD / 42417773 / Confirmed Diabetes mellitus / 017456119 / Confirmed Diabetes mellitus type II / 80677506 / Confirmed Diverticulosis / 0146393203 / Confirmed Edema / 074220298 / Confirmed Fibromyalgia / 89209998 / Confirmed frequent headache / Confirmed GERD - Gastro-esophageal reflux disease / 8510323930 / Confirmed Heart failure / 999841094 / Confirmed Heart valve / 866833674 / Confirmed Hepatomegaly / 977254779 / Confirmed High blood pressure / 16874597 / Confirmed History of obstructive sleep apnea / 55721549 / Confirmed Hyperlipidemia / 37243236 / Confirmed Anemia, iron deficiency / 094121699 / Confirmed 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 Social & Psychosocial Habits Tobacco 12/18/2013 Tobacco Use Within Last Twelve Months No Smoking Status Former smoker Years of Tobacco Use 30 Month Tobacco Last Used quit 2005 Past Medical History: Active Atrial fibrillation (12503989) Bioprosthetic mitral valve replacement (220788242) Chronic kidney disease (7121001518) COPD - Chronic obstructive pulmonary disease (315839476) HLD - Hyperlipidemia (648600439) HTN - Hypertension (9218772825) Family History: Reviewed. Non-contributory. Procedure history: Replacement, mitral valve, with cardiopulmonary bypass (27428) on 01/19/2006 at 40 Years. left jaw pin. sternotomy. hernia repair, abdominal. sigmoid colon resection. Tendon sheath incision (eg, for trigger finger) (73694). jaw surgery, left. great toe surger, left. [...] of motion, Normal strength. Integumentary: Warm, Dry, [place]. Neurologic: Alert, Oriented. Psychiatric: Cooperative, Appropriate mood & affect. Review / Management AUG 12 00:22 L 134 L 98 H 69 / H 134 3.6 29 H 2.40 \ AUG 12 00:22 \ L 8.7 / 6.7 201 / L 28.3 \ Cardiac Markers (Current Encounter/Past 24 Hours) ProBNP 766 pg/mL NC 08/12/2021 01:12 Blood Gases (Current Encounter/Past 24 Hours) No Blood Gas Results Found (Past 24 Hours) Radiology Results (Last 48 hours) [id number] -- 08/11/2021 21:21 CR Chest 1 Vw [...] admission for coagulase negative staph bacteremia Admitted [facility] 07/12, Negative CHUCHO, TTE for vegetation [...] mechanical causes of hemolysis. Obtain records from [facility]. Check haptoglobin, LDH, reticulocyte count. Continue other current CV meds. documented in this encounter Plan of Treatment Not on file documented as of this encounter Visit Diagnoses Not on filedocumented in this encounter Care Teams Garbage Collection Supervisor Relationship Specialty Start Date End Date Reji Castro MD [address] [place] [id number] PCP - General Adolescent Medicine 10/02/22 documented as of this encounter
--- OUTSIDE RECORDS SUMMARY | 2025-05-10 10:19 | XMS_ITS | Encounter Summary ---
Author Organization [employer] In iatives Address [address] [place] [address] Care Team Providers Care Log Cutter Name Role Phone Reji Castro MD Primary Care Provider [phone] Encounter Details Date Type Department Care Team (Late st Contact Info) Description 08/16/2021 Transcribed Document [facility] [place] [address] [place] [address] ProviderDelvin MD [address] [place] [address] Social History Tobacco Use Types Packs/Day Years [...] Bed scale Routine Weight Entry Format : Howell Routine Weight, Pounds : 190 lb Routine Weight Calculation : 86.36 kg Height Source : Stated Height Entry Format : Howell Height, Feet : 5 ft Height, Inches [...] filedocumented in this encounter Care Teams Log Cutter Relationship Specialty Start Date End Date Reji Castro MD [address] [place] [address] PCP - General Adolescent Medicine 10/02/22 documented as of this encounter
--- OUTSIDE RECORDS SUMMARY | 2025-05-10 10:19 | XMS_ITS | Encounter Summary ---
Author Organization [employer] In iatives Address [address] [place] [address] Care Team Providers Care Senior Security Architect Name Role Phone Reji Castro MD Primary Care Provider [phone] Encounter Details Date Type Department Care Team (Late st Contact Info) Description 08/16/2021 Transcribed Document [facility] [place] Family Medicine [address] [place] [address] ProviderDelvin MD [facility] [place] [address] Social History Tobacco Use Types Packs/Day Years [...] 5. Diabetes mellitus type II E11.9 6. group home current use of anticoagulant Z79.01 At risk for central venous catheter associated infection Z91.89 Chronic kidney disease N18.9 Medical screening exam [id number] Medications Inpatient acetaminophen, 650 mg= 2 Tab, [...] failure) penicillins propafenone theophylline Electronically signed by [facility], [facility] Conversion Tornado Chaser Cerner at 03/09/2023 8:52 PM CDT documented in this encounter Plan of Treatment Not on file documented as of this encounter Visit Diagnoses Not on filedocumented in this encounter Care Teams Senior Security Architect Relationship Specialty Start Date End Date Reji Castro MD [address] [place] [id number] PCP - General Adolescent Medicine 10/02/22 documented as of this encounter
--- OUTSIDE RECORDS SUMMARY | 2025-05-10 10:20 | XMS_ITS | Encounter Summary ---
Author Organization [employer] In iatives Address [address] [place] [address] Care Team Providers Care Juice Bar Team Member Name Role Phone Reji Castro MD Primary Care Provider + [phone] Encounter Details Date Type Department Care Team (Late st Contact Info) Description 08/13/2021 Transcribed Document [facility] [place] [address] [place] [address] ProviderDelvin MD [address] [place] [address] Social History Tobacco Use Types Packs/Day Years [...] mg, 14 mL, 128 mL/Hr, IV Piggyback, [id number] Dextrose 50% injection: 12.5 Gram, IV Push, [...] improvement time 35mins Electronically signed by Interface, [facility] Conversion Chief Talent Officer Cerner at 03/09/2023 9:02 PM CDT documented in this encounter Plan of Treatment Not on file documented as of this encounter Visit Diagnoses Not on filedocumented in this encounter Care Teams Juice Bar Team Member Relationship Specialty Start Date End Date Reji Castro MD [address] [place] [id number] PCP - General Adolescent Medicine 10/02/22 documented as of this encounter
--- OUTSIDE RECORDS SUMMARY | 2025-05-10 10:20 | XMS_ITS | Encounter Summary ---
Author Organization [employer] In iatives Address [address] [place] [address] Care Team Providers Care Professional Builder Name Role Phone Reji Castro MD Primary Care Provider + [phone] Encounter Details Date Type Department Care Team (Late st Contact Info) Description 08/27/2021 Transcribed Document [facility] [place] Medicine [address] [place] [address] ProviderDelvin MD [address] [place] [address] Social History Tobacco Use Types Packs/Day Years [...] 10:18 AM CDT Reji Castro MD [address] [facility] [address] [place] [address] Re: IRIANGE TAMAYO Date of Visit: 08/11/2021 Dear Reji Castro [...] contents is strictly prohibited. Sincerely, FAIZA YOUSSEF [address] [place] [address] [address] [place] [address] The following document(s) were included in the letter: August 27, 2021 10:05:19 EDT - (08/27/2021) Discharge Note documented in this encounter Plan of Treatment Not on file documented as of this encounter Visit Diagnoses Not on filedocumented in this encounter Care Teams Professional Builder Relationship Specialty Start Date End Date Reji Castro MD [address] [place] [id number] PCP - General Adolescent Medicine 10/02/22 documented as of this encounter
--- OUTSIDE RECORDS SUMMARY | 2025-05-10 10:20 | XMS_ITS | Encounter Summary ---
Author Organization [employer] In iatives Address [address] [place] [address] Care Team Providers Care Supervisor Die Casting Name Role Phone Reji Castro MD Primary Care Provider [phone] Encounter Details Date Type Department Care Team (Late st Contact Info) Description 08/22/2021 Transcribed Document [facility] [place] [address] [place] [address] ProviderDelvin MD [facility] [place] [address] Social History Tobacco Use Types Packs/Day Years Used Date Smoking Tobacco: Never Assessed Comments Unknown Sex and Gender Information Value Date Recorded Sex Assigned at Not on file Legal Sex Female 4:32 PM CDT Gender Identity Not on file Sexual Orientation Not on file documented as of this encounter Miscellaneous Notes * Cerner Conversion Note - Historical ProviderMD - 08/22/2021 2:00 AM CDT Milk Collector Details Entered On: 08/22/2021 4:12 EDT Performed [...] filedocumented in this encounter Care Teams Supervisor Die Casting Relationship Specialty Start Date End Date Reji Castro MD [address] [place] [id number] PCP - General Adolescent Medicine 10/02/22 documented as of this encounter
--- OUTSIDE RECORDS SUMMARY | 2025-05-10 10:20 | XMS_ITS | Encounter Summary ---
Author Organization [employer] In iatives Address [address] [place] [address] Care Team Providers Care Associate Professor Of Chemistry Name Role Phone Reji Castro MD Primary Care Provider [phone] Encounter Details Date Type Department Care Team (Late st Contact Info) Description 08/27/2021 Transcribed Document [facility] [place] [address] [place] [address] ProviderDelvin MD [address] [place] [address] Social History Tobacco Use Types Packs/Day Years Used Date Smoking Tobacco: Never Assessed Comments Unknown Sex and Gender Information Value Date Recorded Sex Assigned at Not on file Legal Sex Female 4:32 PM CDT Gender Identity Not on file Sexual Orientation Not on file documented as of this encounter Miscellaneous Notes * Cerner Conversion Note - Delvin ProviderMD - 08/27/2021 2:00 AM CDT Slope Runner Details Entered On: 08/27/2021 3:29 EDT Performed [...] on filedocumented in this encounter Care Teams Associate Professor Of Chemistry Relationship Specialty Start Date End Date Reji Castro MD [address] [place] [id number] PCP - General Adolescent Medicine 10/02/22 documented as of this encounter
--- OUTSIDE RECORDS SUMMARY | 2025-05-10 10:20 | XMS_ITS | Encounter Summary ---
Author Organization [employer] In iatives Address [address] [place] [address] Care Team Providers Care Behavioral Health Case Manager Name Role Phone Reji Castro MD Primary Care Provider [phone] Encounter Details Date Type Department Care Team (Late st Contact Info) Description 08/24/2021 Transcribed Document [facility] [place] [address] [place] [address] ProviderDelvin MD [address] [place] [address] Social History Tobacco Use Types Packs/Day Years Used Date Smoking Tobacco: Never Assessed Comments Unknown Sex and Gender Information Value Date Recorded Sex Assigned at Not on file Legal Sex Female 4:32 PM CDT Gender Identity Not on file Sexual Orientation Not on file documented as of this encounter Miscellaneous Notes * Cerner Conversion Note - Delvin ProviderMD - 08/24/2021 2:00 AM CDT Separating Machine Operator Details Entered On: 08/24/2021 0:53 EDT Performed [...] on filedocumented in this encounter Care Teams Behavioral Health Case Manager Relationship Specialty Start Date End Date Reji Castro MD [address] [place] [id number] PCP - General Adolescent Medicine 10/02/22 documented as of this encounter
--- OUTSIDE RECORDS SUMMARY | 2025-05-10 10:20 | XMS_ITS | Encounter Summary ---
Author Organization [employer] In iatives Address [address] [place] [address] Care Team Providers Care Bench Inspector Name Role Phone Reji Castro MD Primary Care Provider [phone] Reason for Referral * Ultrasound (Routine) - Closed Specialty Diagnoses / Procedures Referred By Contac t Referred To Contact Diagnoses Acute renal failure, unspecified acute renal failure type (HCC) Procedures Ultrasound head neck soft tissue Marion Umana MD Phone: tel: fax: Referral ID Status Reason Start Date Expiration Date Visits Re quested Visits Authorized [id number] Closed 09/28/2022 03/27/2023 1 1 Encounter Details Date Type Department Care Team (Late st Contact Info) Description 09/28/2022 Outside Orders [facility] Central Scheduling [address] [place] [address] Marion Umana MD [facility] [address] [place] [id number] Acute renal failure, unspecified acute renal failure [...] Primary documented in this encounter Care Teams Bench Inspector Relationship Specialty Start Date End Date Reji Castro MD [address] [place] [id number] PCP - General Adolescent Medicine 10/02/22 documented as of this encounter
--- OUTSIDE RECORDS SUMMARY | 2025-05-10 10:20 | XMS_ITS | Encounter Summary ---
Author Organization [employer] In iatives Address [address] [place] [address] Care Team Providers Care Prepleater Name Role Phone Reji Castro MD Primary Care Provider [phone] Encounter Details Date Type Department Care Team (Late st Contact Info) Description 08/11/2021 Transcribed Document [facility] [place] [facility] [place] [address] ProviderDelvin MD [address] [place] [address] Social History Tobacco Use Types Packs/Day Years [...] Reason : bacteremia Physician Requesting Consult : ERJI GUERRA MD Physician Requested for Consult : LISA RICKETTS MD-INF Provider Service Notified Name : Infectious Disease Physician Covering for Consult : LISA RICKETTS MD-INF Date and Time Call Returned : 08/12/2021 9:05 EDT Celina Wilder RN - 08/12/2021 9:31 EDT Electronically signed by Lanny [facility] Conversion Metal Pattern Maker Cerner at 03/09/2023 9:00 PM CDT documented in this encounter Plan of Treatment Not on file documented as of this encounter Visit Diagnoses Not on filedocumented in this encounter Care Teams Prepleater Relationship Specialty Start Date End Date Rjei Castro MD [address] [place] [id number] PCP - General Adolescent Medicine 10/02/22 documented as of this encounter
--- OUTSIDE RECORDS SUMMARY | 2025-05-10 10:20 | XMS_ITS | Encounter Summary ---
Author Organization [employer] In [employer]atives Address [address] [place] [address] Care Team Providers Care Maintenance Mechanic Elevators Name Role Phone Reji Castro MD Primary Care Provider [phone] Encounter Details Date Type Department Care Team (Late st Contact Info) Description 08/22/2021 Transcribed Document [facility] [place] [address] [place] [address] ProviderDelvin MD [facility] [place] [address] Social History Tobacco Use Types Packs/Day Years [...] cefTRIAXone: 2 Gram, 100 mL/Hr, IV Piggyback, [id number]. citalopram: 40 mg, Oral, Daily. diphenhydrAMINE: 25 [...] weekend. Thank you, Andrea Moraes, PharmD PGY1 Fire Fighters Dispatcher Pager: [phone], [phone]. [phone] documented in this encounter Plan of Treatment Not on file documented as of this encounter Visit Diagnoses Not on filedocumented in this encounter Care Teams Maintenance Mechanic Elevators Relationship Specialty Start Date End Date Reji Castro MD [address] [place] [id number] PCP - General Adolescent Medicine 10/02/22 documented as of this encounter
--- OUTSIDE RECORDS SUMMARY | 2025-05-10 10:20 | XMS_ITS | Encounter Summary ---
Author Organization [employer] In iatives Address [address] [place] [address] Care Team Providers Care Foundry Helper Name Role Phone Reji Castro MD Primary Care Provider [phone] Encounter Details Date Type Department Care Team (Late st Contact Info) Description 08/21/2021 Transcribed Document [facility] [place] [facility] [place] [address] ProviderDelvin MD [facility] [place] [address] Social History Tobacco Use Types Packs/Day Years [...] her port could not be accessed. Her mortgage assistant aspirated fluid from the port that was evidently purulent. I have not yet been able to track down that culture. After the aspiration she developed fever to 103, severe CHEUNG, myalgias and arthralgias. She was admitted to [facility]. She was in the hospital [...] antibiotics. On 08/08 she presented to a [facility] after she developed severe CHEUNG and myalgias w/o prominent fever. She was subsequently contacted and told to report to [facility] because she had + blood cutures concerning for an infected portacath +/- PVE. 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 Integumentary: Warm, [place]. Neurologic: Alert, Oriented, No focal deficits. Psychiatric: [...] on filedocumented in this encounter Care Teams Foundry Helper Relationship Specialty Start Date End Date Reji Castro MD [address] [place] [id number] PCP - General Adolescent Medicine 10/02/22 documented as of this encounter
--- OUTSIDE RECORDS SUMMARY | 2025-05-10 10:20 | XMS_ITS | Encounter Summary ---
Author Organization [employer] In [employer]atives Address [address] [place] [address] Care Team Providers Care Prospecting Driller Name Role Phone Reji Tovar MD Primary Care Provider [phone] Encounter Details Date Type Department Care Team (Late st Contact Info) Description 08/27/2021 Transcribed Document [facility] [place] [address] [place] [address] ProviderDelvin MD [address] [place] [address] Social History Tobacco Use Types Packs/Day Years [...] take to pcp f/u Depression Celexa Pain [place] 10 mg every 6 hours as needed Procedures SN - Proc - Procedure: Vascular Access Insertion (08/19/21 08:00:32)ATE OF PROCEDURE: 08/19/2021 SURGEON: Nena Holliday MD 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 PROCEDURE PERFORMED: Right IJ PowerPort placement. AIRPLANE DISPATCH CLERK: Cherri Ya. ANESTHESIA: Local MAC. FINDINGS: An 8-Azeri single lumen PowerPort was placed using a [...] and J-wire followed by passage of the 8-Azeri single-lumen catheter. Once again, fluoroscopy was used [...] taken to the Recovery in stable condition. /[id number] Nena Holliday MD JMH/AQ [1] Operative Report [...] back to her room in stable condition. /[id number] MD GERMAINE Pollard/TONYA / DOTTIE / MODL /[id number] Signature Line Electronically Signed on 08/14/2021 11:35 [...] past, CAD, mitral valve replacement presents to [facility] emergency department in [place] after being told by outside provider that [...] what doses. She was seen by our carbon coating machine operator with no new findings, rec to f/u with her usual carbon coating machine operator. Vital Signs T: 36.4 ??C TMIN: 36.4 [...] 2 g injection 2 Gram, IV Piggyback, [id number] Celexa 40 mg oral tablet 40 mg [...] -- Start: 08/19/21 9:34:00 EDT, 60 gm carbs:[id number] kori, Isolation: Standard Precautions, Instructions: Diabetic Diet Follow Up Labs/Studies Blood Gases (Current Encounter/Past 24 Hours) No Blood Gas Results Found (Past 24 Hours) Electrolytes(BMP) Results (Current Encounter/Past 24 Hours) Sodium Level 137 mmol/L 08/27/2021 05:09 Potassium Level 4.0 mmol/L 08/27/2021 05:09 Chloride Level 97 mmol/L LOW 08/27/2021 05:09 Carbon Dioxide Level 36 mmol/L CO 08/27/2021 05:09 Anion Gap 8 LOW 08/27/2021 05:09 Blood Urea Nitrogen 22 mg/dL 08/27/2021 05:09 Glucose Level 140 mg/dL CO 08/27/2021 05:09 Calcium Level 9.5 mg/dL 08/27/2021 05:09 Creatinine Level 1.40 mg/dL CO 08/27/2021 05:09 Cardiac Markers (Current Encounter/Past 24 [...] LOW 08/27/2021 05:09 Creatinine Level 1.40 mg/dL CO 08/27/2021 05:09 eGFR 47 mL/min/1.73m2 LOW 08/27/2021 05:09 Sodium Level 137 mmol/L 08/27/2021 05:09 Potassium Level 4.0 mmol/L 08/27/2021 05:09 Chloride Level 97 mmol/L LOW 08/27/2021 05:09 Carbon Dioxide Level 36 mmol/L CO 08/27/2021 05:09 Anion Gap 8 LOW 08/27/2021 05:09 Blood Urea Nitrogen 22 mg/dL 08/27/2021 05:09 Glucose Level 140 mg/dL CO 08/27/2021 05:09 Calcium Level 9.5 mg/dL 08/27/2021 05:09 Coagulation Results (Current Encounter/Past 24 Hours) PT 26.0 Second(s) CO 08/27/2021 05:04 INR 2.6 CO 08/27/2021 05:04 Creatinine Clearance (Current Encounter/Past 24 Hours) Creatinine Level 1.40 mg/dL CO 08/27/2021 08:46 Bun/Creatinine 15.7 08/27/2021 05:09 Estimated [...] 08/11/2021 20:36 EDT Electronically signed by Lanny [facility] Conversion Building Supervisor Cerner at 03/09/2023 8:54 PM CDT documented in this encounter Plan of Treatment Not on file documented as of this encounter Visit Diagnoses Not on filedocumented in this encounter Care Teams Prospecting Driller Relationship Specialty Start Date End Date Reji Tovar MD [address] [place] [id number] PCP - General Adolescent Medicine 10/02/22 documented as of this encounter
--- OUTSIDE RECORDS SUMMARY | 2025-05-10 10:20 | XMS_ITS | Encounter Summary ---
Author Organization [employer] Address [address] [place] [address] Care Team Providers Care Cook Helper Dessert Name Role Phone Reji Castro MD Primary Care Provider [phone] Encounter Details Date Type Department Care Team (Late st Contact Info) Description 08/27/2021 Transcribed Document [facility] [place] Family Medicine [address] [place] [address] ProviderDelvin MD [address] [place] [address] Social History Tobacco Use Types Packs/Day Years [...] 08/27/2021 3:29 EDT Electronically signed by Lanny [facility] Conversion Microsoft Crm Developer Cerner at 03/09/2023 8:34 PM CDT documented in this encounter Plan of Treatment Not on file documented as of this encounter Visit Diagnoses Not on filedocumented in this encounter Care Teams Cook Helper Dessert Relationship Specialty Start Date End Date Reji Castro MD [address] [place] [address] PCP - General Adolescent Medicine 10/02/22 documented as of this encounter
--- OUTSIDE RECORDS SUMMARY | 2025-05-10 10:20 | XMS_ITS | Encounter Summary ---
Author Organization Healthcare Address [address] [place] [address] Care Team Providers Care Website Designer Name Role Phone Anna Marie Savage MD Primary Care Provider [phone] Reji Castro MD Primary Care Provider [phone] Encounter Details Date Type Department Care Team (Late st Contact Info) Description 10/05/2022 Orders Only External Location [address] [place] [address] Provider, External Social History Tobacco Use Types [...] on filedocumented in this encounter Care Teams Website Designer Relationship Specialty Start Date End Date Anna Marie Savage MD [address] [place] [address] [id number] PCP - General 04/04/21 12/07/23 Reji Castro MD [address] [facility] [address] [place] [address] PCP - General Internal Medicine 12/08/23 documented as of this encounter
--- OUTSIDE RECORDS SUMMARY | 2025-05-10 10:20 | XMS_ITS | Encounter Summary ---
Author Organization [employer] Address [address] [place] [address] Care Team Providers Care Wheel Grinder Name Role Phone Reji Castro MD Primary Care Provider [phone] Encounter Details Date Type Department Care Team (Late st Contact Info) Description 08/18/2021 Transcribed Document [facility] [place] [facility] [place] [address] ProviderDelvin MD [facility] [place] [address] Social History Tobacco Use Types Packs/Day Years [...] Warfarin HPI: 56 y/o F presenting to [facility] with history of COPD, atrial [...] questions. Thank you, Andrea Moraes, PharmD PGY1 Accounting Machine Mechanic Pager: [phone], Ext. [phone] documented in this encounter Plan of Treatment Not on file documented as of this encounter Visit Diagnoses Not on filedocumented in this encounter Care Teams Wheel Grinder Relationship Specialty Start Date End Date Reji Castro MD [address] [place] [address] PCP - General Adolescent Medicine 10/02/22 documented as of this encounter
--- OUTSIDE RECORDS SUMMARY | 2025-05-10 10:20 | XMS_ITS | Encounter Summary ---
Author Organization [employer] Address [address] [place] [address] Care Team Providers Care Customer Success Specialist Name Role Phone Reji Castro MD Primary Care Provider [phone] Encounter Details Date Type Department Care Team (Late st Contact Info) Description 08/27/2021 Transcribed Document [facility] [place] [address] [place] [address] ProviderDelvin MD [address] [place] [address] Social History Tobacco Use Types Packs/Day Years [...] On: 08/27/2021 14:36 EDT by SHAISTA WOLFF Promotions Representative Final Discharge Planning Discharge Arrangements : Patient [...] Services (Related/SOC within 3 days)-06 SHAISTA WOLFF Promotions Representative - 08/27/2021 14:36 EDT Final Narrative Note Final Narrative Note : Admission day 16, on room air to discharge home today, transport via s/o Jorge, who will assist with care. Home health for lab work and Port-a cath care via [facility] ([phone]/Radha Souza), IV Abx via [facility], they will deliver medication to patient's home this evening and patient was taught at bedside how to give herself the infusion, patient's follow up [facility] (via [facility] [phone]/cBrett) appt set for 09/03/2021 at 0900. All other appointments in place via Virtual RN. Pt, RN aware and in agreement with plan. SHAISTA WOLFF Social Worker - 08/27/2021 14:36 EDT documented in this encounter Plan of Treatment Not on file documented as of this encounter Visit Diagnoses Not on filedocumented in this encounter Care Teams Customer Success Specialist Relationship Specialty Start Date End Date Reji Castro MD [address] [place] [address] PCP - General Adolescent Medicine 10/02/22 documented as of this encounter
--- OUTSIDE RECORDS SUMMARY | 2025-05-10 10:20 | XMS_ITS | Encounter Summary ---
Author Organization [employer] Address [address] [place] [address] Care Team Providers Care Explosive Ordnance Disposal Technician Name Role Phone Reji Castro MD Primary Care Provider + [phone] Encounter Details Date Type Department Care Team (Late st Contact Info) Description 08/13/2021 Transcribed Document [facility] [place] Family Medicine [address] [place] [address] ProviderDelvin MD [address] [place] [address] Social History Tobacco Use Types Packs/Day Years [...] on filedocumented in this encounter Care Teams Explosive Ordnance Disposal Technician Relationship Specialty Start Date End Date Reji Castro MD [address] [place] [address] PCP - General Adolescent Medicine 10/02/22 documented as of this encounter
--- OUTSIDE RECORDS SUMMARY | 2025-05-10 10:20 | XMS_ITS | Encounter Summary ---
Author Organization [employer] [facility] [employer] Address [address] [place] [address] Care Team Providers Care Chemist Pharmaceutical Name Role Phone Reji Castro MD Primary Care Provider [phone] Encounter Details Date Type Department Care Team (Late st Contact Info) Description 08/13/2021 Transcribed Document [facility] [place] [address] [place] [address] ProviderDelvin MD [address] [place] [address] Social History Tobacco Use Types Packs/Day Years [...] on filedocumented in this encounter Care Teams Chemist Pharmaceutical Relationship Specialty Start Date End Date Reji Castro MD [address] [place] [address] PCP - General Adolescent Medicine 10/02/22 documented as of this encounter
--- OUTSIDE RECORDS SUMMARY | 2025-05-10 10:20 | XMS_ITS | Encounter Summary ---
Author Organization [employer] Address [address] [facility] [place] [address] Care Team Providers Care Ceramic Sprayer Name Role Phone Reji Castro MD Primary Care Provider [phone] Encounter Details Date Type Department Care Team (Late st Contact Info) Description 10/02/2022 Outside Orders [facility] Central Scheduling [address] [place] [address] Marion Umana MD [address] [facility] [address] [place], [place] [id number] Stage 3 chronic kidney disease, unspecified whether [...] Primary documented in this encounter Care Teams Ceramic Sprayer Relationship Specialty Start Date End Date Reji Castro MD [address] [place] [address] PCP - General Adolescent Medicine 10/02/22 documented as of this encounter
--- OUTSIDE RECORDS SUMMARY | 2025-05-10 10:20 | XMS_ITS | Encounter Summary ---
Author Organization [employer] In [employer] Address [address] [place] [address] Care Team Providers Care Erp Project Manager Name Role Phone Reji Castro MD Primary Care Provider [phone] Encounter Details Date Type Department Care Team (Late st Contact Info) Description 08/11/2021 Transcribed Document [facility] [place] [facility] [place] [address] ProviderDelvin MD [address] [place] [address] Social History Tobacco Use Types Packs/Day Years [...] you, Noy Garrett, PharmD PGY-1 Resident Pager #[phone] Electronically signed by Lanny, [facility] Conversion Feather Duster Winder Cerner at 03/09/2023 8:57 PM CDT documented in this encounter Plan of Treatment Not on file documented as of this encounter Visit Diagnoses Not on filedocumented in this encounter Care Teams Erp Project Manager Relationship Specialty Start Date End Date Reji Castro MD [address] [place] [address] PCP - General Adolescent Medicine 10/02/22 documented as of this encounter
--- OUTSIDE RECORDS SUMMARY | 2025-05-10 10:20 | XMS_ITS | Encounter Summary ---
Author Organization Healthcare Address [address] [place] [address] Care Team Providers Care Industrial Boilermaker Name Role Phone Anna Marie Savage MD Primary Care Provider [phone] Reji Castro MD Primary Care Provider [phone] Encounter Details Date Type Department Care Team (Late st Contact Info) Description 07/09/2023 Orders Only External Location [address] [place] [address] Karen Benson MD [address] [place] [address] Social History Tobacco Use Types Packs/Day Years [...] documented as of this encounter Care Teams Industrial Boilermaker Relationship Specialty Start Date End Date Anna Marie Savage MD [address] [place], [place] [id number] PCP - General 04/04/21 12/07/23 Reji Castro MD [address] [place] [address] [address] [place] [address] PCP - General Internal Medicine 12/08/23 documented as of this encounter
--- OUTSIDE RECORDS SUMMARY | 2025-05-10 10:20 | XMS_ITS | Encounter Summary ---
Author Organization [employer] Address [address] [place] [address] Care Team Providers Care Liquefaction And Regasification Helper Name Role Phone Reji Castro MD Primary Care Provider [phone] Encounter Details Date Type Department Care Team (Late st Contact Info) Description 08/18/2021 Transcribed Document [facility] [place] Family [place] [facility] [place] [address] ProviderDelvin MD [address] [place] [address] Social History Tobacco Use Types Packs/Day Years [...] 15:44 EDT by MADINA LOVETT, RN - Forestry WorkersAircraft Cleaner Progress Note Discharge Arrangements : Patient Post-Acute [...] Rounds? : Yes MADINA LOVETT, RN - Forestry Workers - 08/18/2021 15:44 EDT Narrative Progress Note [...] will need home health and lives in [place]. [employer] home health is a possibility. CM will [...] and send referrals as appropriate. JULIO STEWART, RN-Forestry Workers ED - 08/18/21 10:38:39 MADINA LOVETT, JEREMIAH - Forestry Workers - 08/18/2021 15:44 EDT documented in this encounter Plan of Treatment Not on file documented as of this encounter Visit Diagnoses Not on filedocumented in this encounter Care Teams Liquefaction And Regasification Helper Relationship Specialty Start Date End Date Reji Castro MD [address] [place] [address] PCP - General Adolescent Medicine 10/02/22 documented as of this encounter
--- OUTSIDE RECORDS SUMMARY | 2025-05-10 10:20 | XMS_ITS | Encounter Summary ---
Author Organization [employer] Address [address] [place] [address] Care Team Providers Care Licensed Physical Therapist Assistant Name Role Phone Reji Castro MD Primary Care Provider [phone] Encounter Details Date Type Department Care Team (Late st Contact Info) Description 08/22/2021 Transcribed Document [facility] [place] Family Medicine [address] [place], [place] [id number] ProviderDelvin MD [address] [place] [address] Social History Tobacco Use Types Packs/Day Years [...] 08/22/2021 8:20 EDT by Lamar Sheppard Diet Medication Tech Nutrition Assessment Nutrition Assessment Reason : Other: Lamar Gay Diet Medication Tech - 08/22/2021 8:20 EDT Nutrition Recommendations Dietitian [...] reported. No nutrition dx at this time. plumbing service technician to rescreen in 7-10 days. Lamar Sheppard, Diet Medication Tech - 08/22/2021 12:04 EDT Electronically signed by Lanny [facility] Conversion Cyanide Pot Tender Cerner at 03/09/2023 8:41 PM CDT documented in this encounter Plan of Treatment Not on file documented as of this encounter Visit Diagnoses Not on filedocumented in this encounter Care Teams Licensed Physical Therapist Assistant Relationship Specialty Start Date End Date Reji Castro MD [address] [place] [address] PCP - General Adolescent Medicine 10/02/22 documented as of this encounter
--- OUTSIDE RECORDS SUMMARY | 2025-05-10 10:20 | XMS_ITS | Encounter Summary ---
Author Organization [employer] Address [address] [place] [address] Care Team Providers Care Lost And Found Clerk Name Role Phone Reji Castro MD Primary Care Provider + [phone] Encounter Details Date Type Department Care Team (Late st Contact Info) Description 08/13/2021 Transcribed Document [facility] [place] [facility] [place] [address] ProviderDelvin MD [facility] [place] [address] Social History Tobacco Use Types Packs/Day Years [...] her port could not be accessed. Her candy separator hard aspirated fluid from the port that was evidently purulent. I have not yet been able to track down that culture. After the aspiration she developed fever to 103, severe CHEUNG, myalgias and arthralgias. She was admitted to [facility]. She was in the hospital for [...] antibiotics. On 08/08 she presented to a [facility] after she developed severe CHEUNG and myalgias w/o prominent fever. She was subsequently contacted and told to report to [facility] because she had + blood cutures concerning for an infected portacath +/- PVE. 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 Integumentary: Warm, [place]. Neurologic: Alert, Oriented, No focal deficits. Psychiatric: [...] recommend therapy to 09/22 Electronically signed by [facility], [facility] Conversion Rivet Tosser Cerner at 03/09/2023 8:46 PM CDT documented in this encounter Plan of Treatment Not on file documented as of this encounter Visit Diagnoses Not on filedocumented in this encounter Care Teams Lost And Found Clerk Relationship Specialty Start Date End Date Reji Castro MD [address] [place] [address] PCP - General Adolescent Medicine 10/02/22 documented as of this encounter
--- OUTSIDE RECORDS SUMMARY | 2025-05-10 10:20 | XMS_ITS | Encounter Summary ---
Author Organization [employer] Address [address] [place] [address] Care Team Providers Care Lab Analyst Name Role Phone Reji Castro MD Primary Care Provider [phone] Encounter Details Date Type Department Care Team (Late st Contact Info) Description 08/27/2021 Transcribed Document [facility] [place] Family Medicine [address] [place] [address] ProviderDelvin MD [address] [place] [address] Social History Tobacco Use Types Packs/Day Years [...] implanted port has two main parts: ??? [place]. The reservoir is the part where a [...] water are not available, use alcohol-based hand gambreler helper. ? Change your dressing as told by [...] provider. Document Revised: 03/01/2020 Document Reviewed: 12/11/2017 [employer] Patient Education ? 2020 [employer]. Cardiovascular Atrial Fibrillation Atrial fibrillation is a [...] signals of the heart. ??? An ambulatory rn cardiac to record your heart's activity for a [...] provider. Document Revised: 05/01/2020 Document Reviewed: 05/01/2020 [employer] Patient Education ? 2020 [employer]. Caregiving Implanted Port Home Guide An implanted [...] implanted port has two main parts: ??? [place]. The reservoir is the part where a [...] water are not available, use alcohol-based hand gambreler helper. ? Change your dressing as told by [...] provider. Document Revised: 03/01/2020 Document Reviewed: 12/11/2017 ElseConferenceEdge Patient Education ? 2020 [employer] Endocrinology Diabetes Mellitus and Nutrition, Adult [...] Berries. Apples. Oranges. Peaches. Apricots. Plums. Grapes. [place]. Papaya. Pomegranate. Kiwi. Cherries. Vegetables Lettuce. Spinach. Leafy greens, including kale, chard, yanira greens, and mustard greens. Beets. Cauliflower. Cabbage. Broccoli. Carrots. Green beans. Tomatoes. Peppers. Onions. Cucumbers. [place] sprouts. Grains Whole grains, such as whole-wheat [...] Do I need to meet with a early childhood special educator? Do I need to meet with a dietitian? What number can I call if I have questions? When are the best times to check my blood glucose? Where to find more information: ??? [place] Diabetes Association: diabetes.org ??? Academy of Nutrition and Dietetics: www.eatright.org ??? National Britt of Diabetes and Digestive and Kidney Diseases: [...] provider. Document Revised: 10/15/2020 Document Reviewed: 10/15/2020 [employer]ferenceEdge Patient Education ? 2020 [employer] Hematology Warfarin Coagulopathy Warfarin coagulopathy refers [...] stopping any new medicines. Many prescription and ljsf-azz-fxrbbin medicines can interfere with warfarin. This includes jcqp-btq-oxvmvcl vitamins, dietary supplements, herbal medicines, and pain [...] that you work with a diet and record retrieval specialist (dietitian). ??? Vitamin K makes warfarin [...] Preventing bleeding and injury ??? Some common gnxs-gyd-aqyqtdi medicines and supplements may increase the risk [...] diet. ??? You start or stop any hock-fqg-jgrrhsf medicine, prescription medicine, or dietary supplement. ??? [...] provider. Document Revised: 10/21/2018 Document Reviewed: 01/26/2018 [employer] Patient Education ? 2020 [employer] Infectious Disease Bacteremia, Adult Bacteremia is [...] these instructions at home: Medicines ??? Take qtqv-yyd-zehdepz and prescription medicines only as told by [...] and water are not available, use hand gambreler helper. ??? You should wash your hands: ? [...] care provider. ??? Practice good oral hygiene. [place] your teeth two times a day, and [...] provider. Document Revised: 03/29/2020 Document Reviewed: 03/29/2020 [employer] Patient Education ? 2020 [employer]. Nephrology Acute Kidney Injury, Adult Acute kidney [...] these instructions at home: Medicines ??? Take ojce-wmn-gjchwjq and prescription medicines only as told by [...] important. Where to find more information ??? Swedish Association of Kidney Patients: www.aakp.org ??? National Kidney Foundation: www.kidney.org ??? Swedish Kidney Fund: www.akfinc.org ??? Life Options Rehabilitation [...] provider. Document Revised: 09/17/2020 Document Reviewed: 09/17/2020 [employer] Patient Education ? 2020 [employer]. Chronic Kidney Disease, Adult Chronic kidney [...] these instructions at home: Medicines ??? Take amrn-ahp-sdryhpy and prescription medicines only as told by [...] provider. Document Revised: 10/21/2018 Document Reviewed: 12/13/2017 [employer] Patient Education ? 2020 [employer]. Pharmacology Vitamin K Foods and Warfarin Warfarin [...] before making changes. ??? Work with a record retrieval specialist (dietitian) to develop a meal plan that works best for you. What foods are high in vitamin K? Foods that are high in vitamin K contain more than 100 mcg (micrograms) per serving. These include: ??? Broccoli (cooked from fresh) ? ? cup (78 g) has 110 mcg. ??? [place] sprouts (cooked from fresh) ? ? cup [...] cup (54 g) has 8 mcg. ??? [place] with peel (raw) ? ? cup (52 g) has 9 mcg. ??? Grapes ? ? cup (76 g) has 12 mcg. ??? [place] ? 1 medium (207 g) has 9 [...] provider. Document Revised: 08/27/2020 Document Reviewed: 08/27/2020 [employer] Patient Education ? 2020 [employer] Aspirin and Your Heart Aspirin is [...] The two forms of aspirin are: ? Wor-mcltcvc-muvrzz.This type of aspirin does not have a coating and is absorbed quickly. This type of aspirin also comes in a chewable form. ? Enteric-coated. This type of aspirin has a coating that releases the medicine very slowly. Enteric-coated aspirin might cause less stomach upset than bcv-tbzlfij-quivvg aspirin. This type of aspirin should not [...] these instructions at home Medicines ??? Take dwjb-nya-cvgisqs and prescription medicines only as told by [...] Where to find more information ??? The Swedish Heart Association: www.heart.org Contact a health care [...] on filedocumented in this encounter Care Teams Lab Analyst Relationship Specialty Start Date End Date Reji Castro MD [address] [place] [address] PCP - General Adolescent Medicine 10/02/22 documented as of this encounter
--- OUTSIDE RECORDS SUMMARY | 2025-05-10 10:20 | XMS_ITS | Encounter Summary ---
Author Organization [employer] Address [address] [place] [address] Care Team Providers Care Polls Or Surveys Interviewer Name Role Phone Reji Castro MD Primary Care Provider + [phone] Encounter Details Date Type Department Care Team (Late st Contact Info) Description 08/27/2021 Transcribed Document [facility] [place] Family Medicine [address] [place], [place] [id number] ProviderDelvin MD [address] [place] [address] Social History Tobacco Use Types Packs/Day Years [...] cefTRIAXone: 2 Gram, 100 mL/Hr, IV Piggyback, [id number] diphenhydrAMINE: 25 mg, Oral, Q6H, PRN: Itching [...] 2 g injection: 2 Gram, IV Piggyback, [id number], 0 Refill(s) cefdinir 300 mg oral capsule: [...] Oral, BID cefTRIAXone 2 Gram, IV Piggyback, [id number] citalopram 20 mg tab 40 mg 2 [...] Bioprosthetic mitral valve replacement / SNOMED CT 006767409 / Confirmed Chronic kidney disease / SNOMED CT 2694024983 / Confirmed COPD - Chronic obstructive pulmonary disease / SNOMED CT 802226684 / Confirmed History of obstructive sleep apnea / IMO [id number] / Confirmed HLD - Hyperlipidemia / SNOMED CT 363224687 / Confirmed HTN - Hypertension / SNOMED CT 8483379683 / Confirmed Canceled: Atrial fibrillation / SNOMED CT 24871742, Active Problems (25) AIHA (autoimmune hemolytic anemia) [...] up with Dr GONZALEZ in 2 weeks. Electronically signed by Loki Ca Conversion Sugar Cane Planting Equipment Operator Cerner at 03/09/2023 8:42 PM CDT documented in this encounter Plan of Treatment Not on file documented as of this encounter Visit Diagnoses Not on filedocumented in this encounter Care Teams Polls Or Surveys Interviewer Relationship Specialty Start Date End Date Reji Castro MD [address] [place] [address] PCP - General Adolescent Medicine 10/02/22 documented as of this encounter
--- OUTSIDE RECORDS SUMMARY | 2025-05-10 10:20 | XMS_ITS | Encounter Summary ---
Author Organization [employer] Address [address] [place] [address] Care Team Providers Care Reliability Manager Name Role Phone Reji Castro MD Primary Care Provider [phone] Encounter Details Date Type Department Care Team (Late st Contact Info) Description 08/13/2021 Transcribed Document [facility] [place] [facility] [address] ProviderDelvin MD [facility] [place] [address] Social History Tobacco Use Types Packs/Day Years Used Date Smoking Tobacco: Never Assessed Comments Unknown Sex and Gender Information Value Date Recorded Sex Assigned at Not on file Legal Sex Female 4:32 PM CDT Gender Identity Not on file Sexual Orientation Not on file documented as of this encounter Miscellaneous Notes * Cerner Conversion Note - Delvin ProviderMD - 08/13/2021 2:00 AM CDT Inpatient Pharmacist Details Entered On: 08/13/2021 6:35 EDT Performed [...] on filedocumented in this encounter Care Teams Reliability Manager Relationship Specialty Start Date End Date Reji Castro MD [address] [place] [address] PCP - General Adolescent Medicine 10/02/22 documented as of this encounter
--- OUTSIDE RECORDS SUMMARY | 2025-05-10 10:20 | XMS_ITS | Encounter Summary ---
Author Organization [employer] Address [address] [place] [address] Care Team Providers Care It Risk And Assurance Manager Name Role Phone Reji Castro MD Primary Care Provider + [phone] Encounter Details Date Type Department Care Team (Late st Contact Info) Description 08/13/2021 Transcribed Document [facility] [place] [facility] [place] [address] ProviderDelvin MD [facility] [place] [address] Social History Tobacco Use Types Packs/Day Years [...] 180 units of blood due to anemia, [facility] is why she has a port. Reason [...] these transfusions about 3 years ago at [facility]. Last month she developed fever, headache, nausea, and was admitted to [facility]. CHUCHO/TTE at that time showed possible bacteria on the tip of her port. She was treated with PO antibiotics with resolution of symptoms and was discharged home with no plans for port removal. She reports a few days ago she again had headache and nausea, this time without fever. She presented to the emergency department at [facility] with blood cultures drawn which were supposedly positive for staph epi. She was subsequently told to come to [facility] ED for ID consultation. Review of Systems [...] fibrillation 5. Diabetes mellitus type II 6. shelter current use of anticoagulant At risk for [...] Diagnostic Results Radiology Results (Last 48 hours) [id number] -- 08/11/2021 21:21 CR Chest 1 Vw [...] 08/13/2021 06:13 Blood Urea Nitrogen 50 mg/dL RI 08/13/2021 06:13 Glucose Level 102 mg/dL 08/13/2021 06:13 Albumin Level 3.9 Gram/dL 08/13/2021 06:13 Bilirubin Total 0.5 mg/dL 08/13/2021 06:13 Calcium Level 9.1 mg/dL 08/13/2021 06:13 Electronically signed by [facility], [facility] Conversion Email Marketer Cerner at 03/09/2023 8:43 PM CDT documented in this encounter Plan of Treatment Not on file documented as of this encounter Visit Diagnoses Not on filedocumented in this encounter Care Teams It Risk And Assurance Manager Relationship Specialty Start Date End Date Reji Castro MD [address] [place] [address] PCP - General Adolescent Medicine 10/02/22 documented as of this encounter
--- OUTSIDE RECORDS SUMMARY | 2025-05-10 10:20 | XMS_ITS | Encounter Summary ---
Author Organization [employer] Address [address] [place] [address] Care Team Providers Care Regional Training Manager Name Role Phone Reji Castro MD Primary Care Provider [phone] Encounter Details Date Type Department Care Team (Late st Contact Info) Description 08/22/2021 Transcribed Document [facility] [place] [address] [place] [address] ProviderDelvin MD [address] [place] [address] Social History Tobacco Use Types Packs/Day Years [...] 15:27 EDT by MADINA LOVETT, JEREMIAH - Case TechnicianRfid Technician Progress Note Discharge Arrangements : Patient Post-Acute [...] Rounds? : Yes MADINA LOVETT RN - Case Technician - 08/22/2021 15:27 EDT Narrative Progress Note [...] also faxed order for home health to [facility] which the patient states she has used before. Patient will probably not be ready for discharge until early next week per MDR. DCP: home with home health MADINA LOVETT RN - Case Technician - 08/21/21 15:11:24 RRS Low Boost 5 Day 07/30 Patient was admitted for staph infection and port removal. She had a new port placed on 08/19. Patient needs to remain inpatient until her coumadin is at a therapeutic level per at [facility]. Patient will need IV rocephin until 09/08. Patient will need home health and says she has used [facility] in the past. CM will refer her to them after final antibiotic order is placed. DCP: home with home health MADINA LOVETT RN - Case Technician - 08/20/21 13:35:46 RRS Low Boost 5 [...] will need home health and lvies in [place]. [facility] is a possibility. MADINA LOVETT RN - Case Technician - 08/19/21 15:40:22 RRS Low Boost 5 [...] will need home health and lives in [place]. [facility] is a possibility. CM will continue to follow. DCP: MADINA LOVETT RN - Case Technician - 08/18/21 15:47:49 (late entry from 08/15-) [...] and send referrals as appropriate. JULIO STEWART, JEREMIAH-Case Technician ED - 08/18/21 10:38:39 MADINA LOVETT RN - Case Technician - 08/22/2021 15:27 EDT documented in this encounter Plan of Treatment Not on file documented as of this encounter Visit Diagnoses Not on filedocumented in this encounter Care Teams Regional Training Manager Relationship Specialty Start Date End Date Reji Castro MD [address] [place] [address] PCP - General Adolescent Medicine 10/02/22 documented as of this encounter
--- OUTSIDE RECORDS SUMMARY | 2025-05-10 10:20 | XMS_ITS | Encounter Summary ---
Author Organization [employer] Address [address] [place] [address] Care Team Providers Care Tank Driver Name Role Phone Reji Castro MD Primary Care Provider + [phone] Encounter Details Date Type Department Care Team (Late st Contact Info) Description 08/13/2021 Transcribed Document [facility] [place] [address] ProviderDelvin MD [address] [place] [address] Social History Tobacco Use Types Packs/Day Years [...] III. Patient follows with Dr gonzáles in [place]. She has hx of obstructive uropathy with [...] # 0.62 x10(3)/uL (Low) 08/13/2021 05:19 EDT [place] % 9.5 % (High) 08/13/2021 05:19 EDT [place] # 0.52 K/uL 08/13/2021 05:19 EDT Eos [...] 08/13/2021 05:19 EDT Electronically signed by Lanny [facility] Conversion Vallez Filter Operator Cerner at 03/09/2023 9:02 PM CDT documented in this encounter Plan of Treatment Not on file documented as of this encounter Visit Diagnoses Not on filedocumented in this encounter Care Teams Tank Driver Relationship Specialty Start Date End Date Reji Castro MD [address] [place] [address] PCP - General Adolescent Medicine 10/02/22 documented as of this encounter
--- OUTSIDE RECORDS SUMMARY | 2025-05-10 10:20 | XMS_ITS | Encounter Summary ---
Author Organization [employer] Address [address] [place] [address] Care Team Providers Care Corporate Coordinator Name Role Phone Reji Castro MD Primary Care Provider [phone] Encounter Details Date Type Department Care Team (Late st Contact Info) Description 08/24/2021 Transcribed Document [facility] [place] [address] [place] [address] ProviderDelvin MD [address] [place] [address] Social History Tobacco Use Types Packs/Day Years [...] on filedocumented in this encounter Care Teams Corporate Coordinator Relationship Specialty Start Date End Date Reji Castro MD [address] [place] [address] PCP - General Adolescent Medicine 10/02/22 documented as of this encounter
--- OUTSIDE RECORDS SUMMARY | 2025-05-10 10:20 | XMS_ITS | Clinical Summary ---
Author Organization [facility] Address [address] [place] [address] Care Team Providers Care Gate Supervisor Name Role Phone Reji Castro MD Primary Care Provider [phone] Allergies Active Allergy Reactions Criticality Noted Date [...] (one) time each day. Active Continuous Glucose Collision Worker (FreeStyle [place] 14 Day [place]) device use as directed 4 Active Continuous [...] Load;Provider: Bud Rendon;Status: Active Thyroiditis 12/31/2015 06/18/2023 Encounters Date Type Department Care Team Description 05/07/2025 Orders Only External Location [address] [place] [id number] Provider, External 05/07/2025 Orders Only External Location [address] [place] [address] Provider, External from Last 3 Months Immunizations Immunization Administration Dates Next Due Hib [...] medical appointments or from getting medications? No 12/2 07/2023 In the past 12 months, has l [...] place to sleep or slept in a custodial (including now)? No 11/19/2023 Utilities Answer Date Recorded In the past 12 months has th e electric, gas, oil, or water company threatened to [...] Sign Reading Time Taken Comments Blood Pressure 107/81 05/07/2025 3:40 PM EDT Pulse 84 05/07/2025 3:40 PM EDT Temperature 36.5 C (97.7 F) 12/19/2024 10:29 AM EST Respiratory Rate 15 05/07/2025 3:40 PM EDT Oxygen Saturation 97% 05/07/2025 3:40 PM EDT 2L NC Inhaled Oxygen Concentration - - Weight 85.9 kg (189 lb 6 oz) 12/19/2024 10:29 AM EST Height 162.6 cm (5' 4 ) 12/19/2024 10:29 AM EST Body Mass Index 32.51 12/19/2024 10:29 AM EST Plan of Treatment Health Maintenance Due Date Last Done Comments [facility]icare Annual Wellness (AWV) 1965 [facility]-/Child/Adol SDOH Screenings 1963 Diabetes: Dental Exam 1973 [facility]- SDOH Screenings 1981 [facility]-Adult SDOH Screenings 1981 [facility]-Hepatitis A Vaccines (1 of 2 - Risk 2-dose series) 1982 [facility]-Pap Smear 1984 [facility]-Cervical Cancer Screening 1993 [facility]-HPV/Cotest 1993 [facility]-Breast Cancer Screening 2013 [facility]-Zoster Vaccines (1 of 2) 2013 [id number] Vaccine (3 - Moderna risk series) 03/24/2021 [...] Procedure Name Priority Date/Time Associated Diagnosis Comments CT THORACIC OUTSIDE IMAGES 05/07/2025 2:32 PM EDT XR OUTSIDE IMAGES 05/07/2025 1:3 7 PM EDT HEPATITIS C ANTIBODY - ED W/REFLEX TO HCV QUANT PCR STAT 12/15/2024 8:10 PM EST ED HIV 1/2 ANTIBODY/ANTIGEN SCREEN WITH REFLEX TO HIV I/II DIFFERENTIATION STAT 12/15/2024 8:10 PM EST HEMOGLOBIN A1C Routine 11/20/2023 2:15 AM EST from Last 3 Months or Most Recently Relevant to Health Maintenance Results * CT THORACIC OUTSIDE IMAGES (05/07/2025 2:32 PM EDT) Anatomical Region Laterality Modality Computed Tomogra phy 05/07/2025 2:32 PM EDT us External Provider IMG CT PROCEDURES Final Result * XR OUTSIDE IMAGES (05/07/2025 1:37 PM EDT) Anatomical Region Laterality Modality Radiographic Silvia ging 05/07/2025 1:37 PM EDT us External Provider IMG XR PROCEDURES Final Result * ED HIV 1/2 Antibody/Antigen Screen w/Reflex to HIV 1/2 Differentiation (12/15/2024 8:10 PM EST) HIV 1 & 2 Antibody/Antigen Screen Non Reactive Non Reactive 12/15/2024 9:33 PM EST [facility] Comment:Screening for HIV 1 & 2 antibodies, and P24 antigen is NONREACTIVE. No confirmatory testing is required. Blood Venous blood specimen / Unknown Venipuncture / Unknown 12/15/2024 8:10 PM EST 12/15/2024 8:52 PM EST Elijah Negron MD LAB BLOOD ORDERABLES Final Result [facility] [address] [place] [address] * Hepatitis C Antibody - ED (12/15/2024 8:10 PM EST) Hepatitis C Antibody Negative Negative 12/15/2024 9:33 PM EST [facility] Blood Venous blood specimen / Unknown Venipuncture / Unknown 12/15/2024 8:10 PM EST 12/15/2024 8:52 PM EST Elijah Negron MD LAB BLOOD ORDERABLES Final Result [facility] [address] [place] [address] * (ABNORMAL) Hemoglobin A1c (11/20/2023 2:15 AM EST) Hemoglobin A1c 7.1(H) <5.7 % 11/20/2023 4:00 AM EST [facility] Blood Venous blood specimen / Unknown Venipuncture / Unknown 11/20/2023 2:15 AM EST 11/20/2023 2:22 AM EST Narrative [facility] - 11/20/2023 4:00 AM EST HA1C Interpretive Data: Diagnosis of Diabetes: Diabetic > or = 6.5% Pre-diabetic 5.7 to 6.4% Non-diabetic < or = 5.6% Glycemic Targets for Type I and Type II Diabetics: Non- Adults <7.0% Adults <6.0% Children and Adolescents <7.5% Source: [place] [employer]. Standards of medical care in diabetes,2017. Diabetes Care.2017:40 (suppl 1):S1-S135. HbA1c assay performed by an ion-exchange chromatography method that is certified traceable to the DCCT. us Alannah Conti APRN LAB BLOOD ORDERABLES Final Re sult Performing Organization Address City/[facility] Co de Phone Number [facility] [address] [place] [address] from Last 3 Months or Most Recently Relevant to Health Maintenance Insurance [facility] Advance Directives * Full Code (Latest Code Status on File) Date Activated Date Inactivated Comments 11/18/2023 5:56 PM 11/24/2023 4:04 PM Question Answer Comments Patient has decision-making capacity? Yes Care Teams Gate Supervisor Relationship Specialty Start Date End Date Reji Castro MD [address] [place] [address] PCP - General Internal Medicine 12/08/23
--- OUTSIDE RECORDS SUMMARY | 2025-05-10 10:20 | XMS_ITS | Encounter Summary ---
Author Organization [employer] Address [address] [place] [address] Care Team Providers Care Hand Roller Engraver Name Role Phone Reji Castro MD Primary Care Provider [phone] Reason for Referral * Nuclear Medicine (Routine) - Closed Specialty Diagnoses / Procedures Referred By Contac t Referred To Contact Diagnoses Stage 3 chronic kidney disease, unspecified whether stage 3a or 3b CKD (HCC) Procedures NM parathyroid scan planar only Marion Umana MD Phone: tel: fax: Referral ID Status Reason Start Date Expiration Date Visits Re quested Visits Authorized [id number] Closed 10/02/2022 03/31/2023 1 1 Encounter Details Date Type Department Care Team (Late st Contact Info) Description 10/02/2022 Outside Orders [facility] Central Scheduling [address] [place] [address] Marion Umana MD [address] [facility] [address] [place] [address] Stage 3 chronic kidney disease, unspecified whether [...] (HCC) documented in this encounter Care Teams Hand Roller Engraver Relationship Specialty Start Date End Date Reji Castro MD [address] [place] [address] PCP - General Adolescent Medicine 10/02/22 documented as of this encounter
--- OUTSIDE RECORDS SUMMARY | 2025-05-10 10:20 | XMS_ITS | Referral Summary ---
Author Organization [employer] [facility] [employer] Address [address] [facility] [place] [address] Care Team Providers Care Fishing Boat Mate Name Role Phone Reji Castro MD Primary Care Provider [phone] Allergies Active Allergy Reactions Criticality Noted Date [...] Plan of Treatment Not on file Insurance [facility] Advance Directives For more information, please contact: [phone] Documents on File Type Date Recorded Patient Cinder Block Mason Expl anation Advance Directives and Gato ponce Will 10/05/2022 8:36 AM Care Teams Fishing Boat Mate Relationship Specialty Start Date End Date Reji Castro MD [address] [place] [address] PCP - General Adolescent Medicine 10/02/22
--- OUTSIDE RECORDS SUMMARY | 2025-05-10 10:20 | XMS_ITS | Encounter Summary ---
Author Organization [employer] Address [address] [place] [address] Care Team Providers Care Textile Designer Name Role Phone Reji Castro MD Primary Care Provider [phone] Encounter Details Date Type Department Care Team (Late st Contact Info) Description 08/18/2021 Transcribed Document [facility] Radiology [address] [place] [address] Loren Solorzano MD [address] [place] [address] [place] [id number] Social History Tobacco Use Types Packs/Day Years [...] Bioprosthetic mitral valve replacement / SNOMED CT 911682882 / Confirmed Chronic kidney disease / SNOMED CT 0702267616 / Confirmed COPD - Chronic obstructive pulmonary disease / SNOMED CT 482606323 / Confirmed History of obstructive sleep apnea / IMO 06883233 / Confirmed HLD - Hyperlipidemia / SNOMED CT 641868823 / Confirmed HTN - Hypertension / SNOMED CT 9914678168 / Confirmed Canceled: Atrial fibrillation / SNOMED CT 72317566, Active Problems (25) AIHA (autoimmune hemolytic anemia) [...] Apical HR 75 (AUG 17 20:10) 75 ([facility] 20:10) 75 ([facility] 20:10) Mon HR 63 (AUG 18 06:) 63 (AUG 18 06:) 84 (AUG 17 18:12) Resp Rate 18 (AUG 18:) 16 (AUG 17:) 18 (AUG 18 06:29) SBP 105 (AUG 18 06:) 101 (AUG 17 22:) 107 ([facility] 02:02) DBP L 53 (AUG 18:) L 45 (AUG 17 18:12) 61 (AUG 17:) MAP 77 (AUG 18 06:29) 70 ([facility] 18:12) 78 ([facility] 22:27) SpO2 95 (AUG 18 [...] 50 mL 700 mg, IV Piggyback, Inj, [id number], infuse over 30 Minute(s), Routine, Start 08/14/21 [...] Hold home meds SSI #Depression Celexa #Pain [place] 10 mg every 6 hours as needed [...] on filedocumented in this encounter Care Teams Textile Designer Relationship Specialty Start Date End Date Reji Castro MD [address] [place] [id number] PCP - General Adolescent Medicine 10/02/22 documented as of this encounter
--- OUTSIDE RECORDS SUMMARY | 2025-05-10 10:20 | XMS_ITS | Encounter Summary ---
Author Organization [employer] Address [address] [place] [address] Care Team Providers Care Acls Nurse Name Role Phone Reji Castro MD Primary Care Provider [phone] Encounter Details Date Type Department Care Team (Late st Contact Info) Description 08/27/2021 Transcribed Document [facility] [place] Family Medicine [address] [place] [address] ProviderDelvin MD [address] [place] [address] Social History Tobacco Use Types Packs/Day Years [...] On: 08/27/2021 10:31 EDT by Sallie Solorzano [employer] Stroke/Warfarin Instructions Stroke/TIA Discharge Ins : N/A Sallie Solorzano [employer] - 08/27/2021 10:34 EDT Warfarin Discharge Ins : Open Sallie Solorzano [employer] - 08/27/2021 10:31 EDT Warfarin Discharge Instructions Physician to Manage Warfarin : Sallie Tavarez RN[employer] - 08/27/2021 10:34 EDT Indication for Warfarin Anticoagulation : Atrial fibrillation Warfarin Anticoagulation Disposition : Continuation of pre-hospital treatment Duration Warfarin Therapy, Senior Care Duration Warfarin Therapy, Senior Care : Yes Target INR : 2.5 - 3.5 Last INR Result : INR: 1.3 (High), Reference [place]: (0.9 - 1.2), 08/20/2021 7:38 AM Notify Provider of Signs/Symptoms of : Significant bleeding, Clot Warfarin Dose/Frequency : 6 mg daily Sallie Solorzano [employer] - 08/27/2021 10:31 EDT Education Topics: Anticoagulant [...] : Tod Sawyer to manage Sallie Solorzano [employer] - 08/27/2021 10:34 EDT documented in this encounter Plan of Treatment Not on file documented as of this encounter Visit Diagnoses Not on filedocumented in this encounter Care Teams Acls Nurse Relationship Specialty Start Date End Date Reji Castro MD [address] [place] [id number] PCP - General Adolescent Medicine 10/02/22 documented as of this encounter
--- OUTSIDE RECORDS SUMMARY | 2025-05-10 10:20 | XMS_ITS | Encounter Summary ---
Author Organization [employer] In [employer] Address [address] [place] [address] Care Team Providers Care Waste Water Worker Name Role Phone Reji Castro MD Primary Care Provider [phone] Encounter Details Date Type Department Care Team (Late st Contact Info) Description 08/27/[address] [facility] [place] [facility] [place] [address] ProviderDelvin MD [address] [place] [address] Social History Tobacco Use Types Packs/Day Years [...] 3). Daily INR Will followZeyad PharmD, BCPS [phone] documented in this encounter Plan of Treatment Not on file documented as of this encounter Visit Diagnoses Not on filedocumented in this encounter Care Teams Waste Water Worker Relationship Specialty Start Date End Date Reji Castro MD [address] [place] [address] PCP - General Adolescent Medicine 10/02/22 documented as of this encounter
--- OUTSIDE RECORDS SUMMARY | 2025-05-10 10:20 | XMS_ITS | Encounter Summary ---
Author Organization [employer] Address [address] [place] [address] Care Team Providers Care Hooker Operator Name Role Phone Reji Castro MD Primary Care Provider [phone] Encounter Details Date Type Department Care Team (Late st Contact Info) Description 08/24/2021 Transcribed Document [facility] [place] [facility] [place] [address] ProviderDelvin MD [address] [place] [address] Social History Tobacco Use Types Packs/Day Years [...] Warfarin HPI: 56 y/o F presenting to [facility] with history of COPD, atrial fibrillation, [...] cefTRIAXone: 2 Gram, 100 mL/Hr, IV Piggyback, [id number]. citalopram: 40 mg, Oral, Daily. diphenhydrAMINE: 25 [...] you, Noy Garrett, PharmD PGY-1 Resident Pager #[phone] documented in this encounter Plan of Treatment Not on file documented as of this encounter Visit Diagnoses Not on filedocumented in this encounter Care Teams Hooker Operator Relationship Specialty Start Date End Date Reji Castro MD [address] [place] [address] PCP - General Adolescent Medicine 10/02/22 documented as of this encounter
--- OUTSIDE RECORDS SUMMARY | 2025-05-10 10:20 | XMS_ITS | Encounter Summary ---
Author Organization [employer] In [employer] Address [address] [place] [address] Care Team Providers Care Toe Trimmer Name Role Phone Reji Castro MD Primary Care Provider [phone] Encounter Details Date Type Department Care Team (Late st Contact Info) Description 08/21/2021 Transcribed Document [facility] [place] [address] [place] [address] ProviderDelvin MD [address] [place] [address] Social History Tobacco Use Types Packs/Day Years [...] 08/21/2021 18:33 EDT Electronically signed by Lanny [facility] Conversion Professor Of Practice Cerner at 03/09/2023 8:36 PM CDT documented in this encounter Plan of Treatment Not on file documented as of this encounter Visit Diagnoses Not on filedocumented in this encounter Care Teams Toe Trimmer Relationship Specialty Start Date End Date Reji Castro MD [address] [place] [address] PCP - General Adolescent Medicine 10/02/22 documented as of this encounter
--- OUTSIDE RECORDS SUMMARY | 2025-05-10 10:20 | XMS_ITS | Encounter Summary ---
Author Organization [employer] Address [address] [place] [address] Care Team Providers Care Homoeopath Name Role Phone Reji Tovar MD Primary Care Provider [phone] Encounter Details Date Type Department Care Team (Late st Contact Info) Description 08/27/2021 Transcribed Document [facility] [address] [place] [address] ProviderDelvin MD [address] [place], [place] [id number] Social History Tobacco Use Types Packs/Day Years [...] Celestin MD - 08/27/2021 1:31 PM CDT [facility] [place] [address] IRINA TAMAYO :1965 Visit Time:08/11/2021 Your Visit Summary Your Care Team Admitting Physician - VINCE BELLO MD Attending Physician - FAIZA YOUSSEF DO-GAUDENCIO Primary Care Physician - DEREK ROBISON DR Referring Physician - VINCE BELLO MD Your Diagnosis Bacteremia Acute kidney injury superimposed on chronic kidney disease, Acute kidney injury CHF with unknown LVEF Atrial fibrillation Diabetes mellitus type II care home current use of anticoagulant At risk for [...] contact Dr. Sawyer's office directly. Where: [address] [facility] [address] [place] [address]- Follow Up with LISA RICKETTS When 09/03/2021 10:45 AM EDT Comments Hospital follow up appointment has been made. Please arrive 15 minutes early to the appointment. If you need to reschedule, please contact [facility] directly. Where: [address] [facility] [address] [place] [address]- Business (1) Follow Up with NENA PEARSON MD-[facility] When Within 1 week Comments The [facility] will contact you with appointment date and time. Where: [address] [facility] [address] [place] [address]- Follow Up with REJI TOVAR (REF)MD-[facility] When Within 5 to 7 days Comments The [facility] will contact you with appointment date and time. Where: [address] [place] [address]- Follow Up with JERRELL GONZALEZ When Within 2 weeks Comments The [facility] will contact you with appointment date and time. Where: Warfarin Instructions Indication for Warfarin Anticoagulation: Atrial fibrillation Indication for Warfarin Anticoagulation: Atrial fibrillation Warfarin Anticoagulation Disposition: Continuation of pre-hospital treatment Warfarin Anticoagulation Disposition: Continuation of pre-hospital treatment Duration Warfarin Therapy, Group Home: Yes Target INR: 2.5 - 3.5 Physician [...] to 25mg daily Pickup at [facility] spironolactone (spironolactone 25 mg oral tablet) 1 Tablet(s) Oral Every Day Please note: Dose REDUCTION to 1 tablet daily warfarin (Coumadin 4 mg oral tablet) 2 Tablet(s) Oral Every Day Please note: Dose INCREASE Pickup at [facility] acetaminophen-oxyCODONE (Percocet 10/ 325 oral [...] Both Every Day Pharmacy Information [facility]: [address] [place] [address] [phone] Take your medications faithfully. Do NOT skip [...] these instructions at home: Medicines ??? Take kriy-sts-whwgpep and prescription medicines only as told by [...] and water are not available, use hand bark fitter. ??? You should wash your hands: ? [...] care provider. ??? Practice good oral hygiene. Hillister your teeth two times a day, and [...] provider. Document Revised: 03/29/2020 Document Reviewed: 03/29/2020 ElseSocialPicks Patient Education ?? 2020 [employer]. Warfarin Coagulopathy Warfarin coagulopathy refers to bleeding [...] stopping any new medicines. Many prescription and xssn-swb-oxcsqns medicines can interfere with warfarin. This includes rhjc-hzu-iyokocf vitamins, dietary supplements, herbal medicines, and pain [...] that you work with a diet and teacher specialist (dietitian). ??? Vitamin K makes warfarin [...] Preventing bleeding and injury ??? Some common vvod-lgo-yqiifmo medicines and supplements may increase the risk [...] diet. ??? You start or stop any nhto-ffx-ltxuiwm medicine, prescription medicine, or dietary supplement. ??? [...] Reviewed: 01/26/2018 Elsevier Patient Education ?? 2020 [employer] Inc. Vitamin K Foods and Warfarin Warfarin [...] before making changes. ??? Work with a teacher specialist (dietitian) to develop a meal plan that works best for you. What foods are high in vitamin K? Foods that are high in vitamin K contain more than 100 mcg (micrograms) per serving. These include: ??? Broccoli (cooked from fresh) ? cup (78 g) has 110 mcg. ??? Osage sprouts (cooked from fresh) ? cup (78 [...] cup (90 g) has 444 mcg. ??? Tongan chard (cooked from fresh) ? cup (88 [...] cup (54 g) has 8 mcg. ??? Venus with peel (raw) ? cup (52 g) has 9 mcg. ??? Grapes ? cup (76 g) has 12 mcg. ??? [place] ??? 1 medium (207 g) has 9 [...] Reviewed: 08/27/2020 Elsevier Patient Education ?? 2020 [employer] Inc. Implanted Port Home Guide An implanted [...] implanted port has two main parts: ??? [place]. The reservoir is the part where a [...] water are not available, use alcohol-based hand bark fitter. ? Change your dressing as told by [...] provider. Document Revised: 03/01/2020 Document Reviewed: 12/11/2017 Level Patient Education ?? 2020 Level Inc. Acute Kidney Injury, Adult Acute kidney [...] these instructions at home: Medicines ??? Take ajdz-wwo-uzgitcb and prescription medicines only as told by [...] important. Where to find more information ??? [employer] Association of Kidney Patients: www.aakp.org ??? National Kidney Foundation: www.kidney.org ??? [employer] Kidney Fund: www.akfinc.org ??? [employer] Rehabilitation [...] provider. Document Revised: 09/17/2020 Document Reviewed: 09/17/2020 Level Patient Education ?? 2020 [employer]. Chronic Kidney Disease, Adult Chronic kidney disease [...] these instructions at home: Medicines ??? Take crys-hyh-qrzwhbs and prescription medicines only as told by [...] provider. Document Revised: 10/21/2018 Document Reviewed: 12/13/2017 ElseSocialPicks Patient Education ?? 2020 [employer]. Implanted Port Home Guide An implanted [...] implanted port has two main parts: ??? [place]. The reservoir is the part where a [...] water are not available, use alcohol-based hand bark fitter. ? Change your dressing as told by [...] provider. Document Revised: 03/01/2020 Document Reviewed: 12/11/2017 Level Patient Education ?? 2020 [employer] Inc. Atrial Fibrillation Atrial fibrillation is a [...] signals of the heart. ??? An ambulatory lunchroom monitor to record your heart's activity for a [...] provider. Document Revised: 05/01/2020 Document Reviewed: 05/01/2020 Level Patient Education ?? 2020 Level Inc. Aspirin and Your Heart Aspirin is [...] on filedocumented in this encounter Care Teams Homoeopath Relationship Specialty Start Date End Date Reji Tovar MD [address] [place] [address] PCP - General Adolescent Medicine 10/02/22 documented as of this encounter
--- OUTSIDE RECORDS SUMMARY | 2025-05-10 10:20 | XMS_ITS | Encounter Summary ---
Author Organization [employer] Address [address] [place] [address] Care Team Providers Care Restaurant Management Internship Name Role Phone Reji Castro MD Primary Care Provider [phone] Encounter Details Date Type Department Care Team (Late st Contact Info) Description 08/27/2021 Transcribed Document [facility] [place] [address] [place] [address] ProviderDelvin MD [address] [place] [address] Social History Tobacco Use Types Packs/Day Years [...] On: 08/27/2021 12:50 EDT by STEVEN MENDES ironer machine Documentation Patient Disposition, General : Discharge Discharge To : Home with ambulatory/outpatient follow-up Education Comment : poc, meds, safety STEVEN MENDES RN - 08/27/2021 12:50 EDT Electronically signed by Lanny [facility] Conversion Insurance Associate Marisa at 03/09/2023 8:58 PM CDT documented in this encounter Plan of Treatment Not on file documented as of this encounter Visit Diagnoses Not on filedocumented in this encounter Care Teams Restaurant Management Internship Relationship Specialty Start Date End Date Reji Castro MD [address] [place] [address] PCP - General Adolescent Medicine 10/02/22 documented as of this encounter
--- OUTSIDE RECORDS SUMMARY | 2025-05-10 10:20 | XMS_ITS | Clinical Summary ---
Author Organization [employer] Address [address] [place] [address] Care Team Providers Care Podiatric Foot And Ankle Specialist Name Role Phone Reji Castro MD Primary Care Provider [phone] Allergies Active Allergy Reactions Criticality Noted Date [...] Date Yash rded Speak language other than Jamaican at home Not on file 12/10/2023 Want [...] 75+ series) [address] [place] [address] Advance Directives For more information, please contact: [phone] Documents on File Type Date Recorded Patient Business Administration Program Chair Expl anation Advance Directives and Gato g Will 10/05/2022 8:36 AM Care Teams Podiatric Foot And Ankle Specialist Relationship Specialty Start Date End Date Reji Castro MD [address] [place] [address] PCP - General Adolescent Medicine 10/02/22
--- OUTSIDE RECORDS SUMMARY | 2025-05-10 10:20 | XMS_ITS | Encounter Summary ---
Author Organization [employer] Address [address] [place] [address] Care Team Providers Care Marine Pilot Name Role Phone Reji Castro MD Primary Care Provider [phone] Encounter Details Date Type Department Care Team (Late st Contact Info) Description 08/22/2021 Transcribed Document [facility] [place] Family Medicine [address] [place] [address] ProviderDelvin MD [address] [place] [address] Social History Tobacco Use Types Packs/Day Years [...] on filedocumented in this encounter Care Teams Marine Pilot Relationship Specialty Start Date End Date Reji Castro MD [address] [place] [address] PCP - General Adolescent Medicine 10/02/22 documented as of this encounter
--- OUTSIDE RECORDS SUMMARY | 2025-05-10 10:20 | XMS_ITS | Encounter Summary ---
Author Organization [employer] Address [address] [place] [address] Care Team Providers Care Maintenance And Repair Worker Name Role Phone Reji Castro MD Primary Care Provider [phone] Encounter Details Date Type Department Care Team (Late st Contact Info) Description 08/22/2021 Transcribed Document [facility] Radiology [address] [place] [address] Loren Solorzano MD [address] [place] [address] [address] [place] [id number] Social History Tobacco Use Types Packs/Day Years [...] cefTRIAXone: 2 Gram, 100 mL/Hr, IV Piggyback, [id number] diphenhydrAMINE: 25 mg, Oral, Q6H, PRN: Itching [...] Oral, BID cefTRIAXone 2 Gram, IV Piggyback, [id number] citalopram 20 mg tab 40 mg 2 [...] Bioprosthetic mitral valve replacement / SNOMED CT 399804282 / Confirmed Chronic kidney disease / SNOMED CT 3409914022 / Confirmed COPD - Chronic obstructive pulmonary disease / SNOMED CT 622777821 / Confirmed History of obstructive sleep apnea / IMO [id number] / Confirmed HLD - Hyperlipidemia / SNOMED CT 025367755 / Confirmed HTN - Hypertension / SNOMED CT 1075932179 / Confirmed Canceled: Atrial fibrillation / SNOMED CT 41601118, Active Problems (25) AIHA (autoimmune hemolytic anemia) [...] Hold home meds SSI #Depression Celexa #Pain [place] 10 mg every 6 hours as needed CODE STATUS. Full code Dispo: Given patient with history of multiple transfusion we will keep patient in the hospital on heparin drip and Coumadin till INR therapeutic need IV abx, at least until 09/08. Discussed with welfare case worker. and pharmcy Time spent 25 minutes documented in this encounter Plan of Treatment Not on file documented as of this encounter Visit Diagnoses Not on filedocumented in this encounter Care Teams Maintenance And Repair Worker Relationship Specialty Start Date End Date Reji Castro MD [address] [place] [address] PCP - General Adolescent Medicine 10/02/22 documented as of this encounter
--- OUTSIDE RECORDS SUMMARY | 2025-05-10 10:20 | XMS_ITS | Encounter Summary ---
Author Organization [employer] Address [address] [place] [address] Care Team Providers Care Senior Investigator Name Role Phone Reji Castro MD Primary Care Provider [phone] Encounter Details Date Type Department Care Team (Late st Contact Info) Description 08/21/2021 Transcribed Document [facility] [place] [facility] [place] [address] ProviderDelvin MD [address] [place] [address] Social History Tobacco Use Types Packs/Day Years [...] 15:08 EDT by MADINA LOVETT, JEREMIAH - Skid WrapperBeef Specialist Progress Note Discharge Arrangements : Patient Post-Acute [...] Rounds? : Yes MADINA LOVETT RN - Skid Wrapper - 08/21/2021 15:08 EDT Narrative Progress Note Narrative Progress Note : RRS Low Boost 5 Day 08/29 Patient was admitted for staph infection and port removal. She had a new port placed on 08/19. Patient needs to remain inpatient until her coumadin is at therapeutic level per MD in [facility]. Patient will need IV rocephin until 09/08. CM faxed the order to Urszula with [facility]. CM also faxed order for home health to [facility] which the patient states she has used [...] is at a therapeutic level per at [facility]. Patient will need IV rocephin until 09/08. Patient will need home health and says she has used [facility] home [facility] in the past. CM will refer her to them after final antibiotic order is placed. DCP: home with home health MADINA LOVETT RN - Skid Wrapper - 08/20/21 13:35:46 RRS Low Boost 5 Day 05/26 Patient was admitted for staph infection and port removal. She had a new port done on . 08/19. Patient needs to remain inpatient after surgery until her coumadin is at a therapeutic level per at [facility]. Waiting on culture results for final abx plan. May need IV abx at home via port. Patient will need home health and lvies in [place]. [facility] home health is a possibility. MADINA LOVETT RN - Skid Wrapper - 08/19/21 15:40:22 RRS Low Boost 5 [...] will need home health and lives in [place]. [facility] home health is a possibility. CM will continue to follow. DCP: MADINA LOVETT, RN - Skid Wrapper - 08/18/21 15:47:49 (late entry from 08/15-) [...] and send referrals as appropriate. JULIO STEWART, RN-Skid Wrapper ED - 08/18/21 10:38:39 MADINA LOVETT, JEREMIAH - Skid Wrapper - 08/21/2021 15:08 EDT documented in this encounter Plan of Treatment Not on file documented as of this encounter Visit Diagnoses Not on filedocumented in this encounter Care Teams Senior Investigator Relationship Specialty Start Date End Date Reji Castro MD [address] [place] [address] PCP - General Adolescent Medicine 10/02/22 documented as of this encounter
--- OUTSIDE RECORDS SUMMARY | 2025-05-10 10:20 | XMS_ITS | Encounter Summary ---
Author Organization [employer] Address [address] [place] [address] Care Team Providers Care Floor Nurse Name Role Phone Reji Castro MD Primary Care Provider [phone] Encounter Details Date Type Department Care Team (Late st Contact Info) Description 08/18/2021 Transcribed Document [facility] [place] Medicine [facility] [place] [address] ProviderDelvin MD [facility] [place] [address] Social History Tobacco Use Types Packs/Day Years [...] her port could not be accessed. Her public administration teacher aspirated fluid from the port that was evidently purulent. I have not yet been able to track down that culture. After the aspiration she developed fever to 103, severe CHEUNG, myalgias and arthralgias. She was admitted to [facility]. She was in the hospital [...] On 08/08 she presented to a [facility] after she developed severe CHEUNG and myalgias w/o prominent fever. She was subsequently contacted and told to report to [facility] because she had + blood cutures concerning for an infected portacath +/- PVE. I contacted the micro lab at 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 Integumentary: Warm, Shorter. Neurologic: Alert, Oriented, No focal deficits. Psychiatric: [...] length with patient Electronically signed by Lanny [facility] Conversion Iuss Analyst Cerner at 03/09/2023 8:49 PM CDT documented in this encounter Plan of Treatment Not on file documented as of this encounter Visit Diagnoses Not on filedocumented in this encounter Care Teams Floor Nurse Relationship Specialty Start Date End Date Reji Castro MD [address] [place] [address] PCP - General Adolescent Medicine 10/02/22 documented as of this encounter
--- OUTSIDE RECORDS SUMMARY | 2025-05-10 10:20 | XMS_ITS | Encounter Summary ---
Author Organization [employer] Address [address] [place] [address] Care Team Providers Care Statistics Manager Name Role Phone Reji Castro MD Primary Care Provider [phone] Encounter Details Date Type Department Care Team (Late st Contact Info) Description 08/11/2021 Transcribed Document [facility] [place] [address] [place] [address] ProviderDelvin MD [address] [place] [address] Social History Tobacco Use Types Packs/Day Years Used Date Smoking Tobacco: Never Assessed Comments Unknown Sex and Gender Information Value Date Recorded Sex Assigned at Not on file Legal Sex Female 4:32 PM CDT Gender Identity Not on file Sexual Orientation Not on file documented as of this encounter Miscellaneous Notes * [employer]ner Conversion Note - Delvin ProviderMD - 08/11/2021 4:16 PM CDT [place] Suicide Severity Rating Scale (C-SSRS) Entered On: 08/11/2021 18:49 EDT Performed On: 08/11/2021 18:46 EDT by MARIPOSA JACQUES RN [place] Suicide Severity Rating Scale (C-SSRS) CSSRS Past Month Wish to be : No CSSRS Past Month Suicidal Thoughts : No CSSRS Lifetime Suicide Behavior : No Suicide Severity Rating Score : 0 Suicide Severity Rating : No Additional Care Required at this time MARIPOSA JACQUES RN - 08/11/2021 18:46 EDT Electronically signed by Loki Ca Conversion Interactive Media Marketing Director Cerner at 03/09/2023 8:58 PM CDT documented in this encounter Plan of Treatment Not on file documented as of this encounter Visit Diagnoses Not on filedocumented in this encounter Care Teams Statistics Manager Relationship Specialty Start Date End Date Reji Castro MD [address] [place] [address] PCP - General Adolescent Medicine 10/02/22 documented as of this encounter
--- OUTSIDE RECORDS SUMMARY | 2025-05-10 10:20 | XMS_ITS | Encounter Summary ---
Author Organization [employer] Address [address] [place] [address] Care Team Providers Care State Attorney Name Role Phone Reji Castro MD Primary Care Provider [phone] Encounter Details Date Type Department Care Team (Late st Contact Info) Description 08/21/2021 Transcribed Document [facility] Radiology [address] [place] [address] Loren Solorzano MD [address] [place] [address] [address] [place] [id number] Social History Tobacco Use Types Packs/Day Years [...] cefTRIAXone: 2 Gram, 100 mL/Hr, IV Piggyback, [id number] diphenhydrAMINE: 25 mg, Oral, Q6H, PRN: Itching [...] Oral, BID cefTRIAXone 2 Gram, IV Piggyback, [id number] citalopram 20 mg tab 40 mg 2 [...] Bioprosthetic mitral valve replacement / SNOMED CT 108549834 / Confirmed Chronic kidney disease / SNOMED CT 0047491557 / Confirmed COPD - Chronic obstructive pulmonary disease / SNOMED CT 946019053 / Confirmed History of obstructive sleep apnea / IMO 82322508 / Confirmed HLD - Hyperlipidemia / SNOMED CT 196944900 / Confirmed HTN - Hypertension / SNOMED CT 2633430742 / Confirmed Canceled: Atrial fibrillation / SNOMED CT 71790402, Active Problems (25) AIHA (autoimmune hemolytic anemia) [...] 21 06:00) 97.6 (AUG 21 06:00) 98 ([facility] 11:00) Apical HR 70 (AUG 20 20:27) 70 (AUG 20 20:27) 70 (AUG 20 20:27) Mon HR 61 (AUG 21 06:00) 61 (AUG 21 06:00) 89 ([facility] 11:00) Resp Rate 15 (AUG 21 06:00) 15 (AUG 21 06:00) 18 (AUG 20 11:00) SBP 101 (AUG 21 06:00) 95 (AUG 20 23:30) 127 ([facility] 11:00) DBP 68 (AUG 21 06:00) L 50 (AUG 20 15:00) 80 ([facility] 11:00) MAP 78 (AUG 21 06:00) 63 [...] Hold home meds SSI #Depression Celexa #Pain [place] 10 mg every 6 hours as needed Dispo: Given patient with history of multiple transfusion we will keep patient in the hospital on heparin drip and Coumadin till INR therapeutic need IV abx, at least until 09/08. Discussed with egg caser. and pharmcy Time spent 25 minutes documented in this encounter Plan of Treatment Not on file documented as of this encounter Visit Diagnoses Not on filedocumented in this encounter Care Teams State Attorney Relationship Specialty Start Date End Date Reji Castro MD [address] [place] [address] PCP - General Adolescent Medicine 10/02/22 documented as of this encounter
--- OUTSIDE RECORDS SUMMARY | 2025-05-10 10:20 | XMS_ITS | Encounter Summary ---
Author Organization [employer] Address [address] [place] [address] Care Team Providers Care Batch Weigher Name Role Phone Reji Castro MD Primary Care Provider [phone] Encounter Details Date Type Department Care Team (Late st Contact Info) Description 08/22/2021 Transcribed Document [facility] [place] Family Medicine [address] [place], [place] [id number] ProviderDelvin MD [address] [place] [address] Social History Tobacco Use Types Packs/Day Years [...] cefTRIAXone: 2 Gram, 100 mL/Hr, IV Piggyback, [id number] diphenhydrAMINE: 25 mg, Oral, Q6H, PRN: Itching [...] Oral, BID cefTRIAXone 2 Gram, IV Piggyback, [id number] citalopram 20 mg tab 40 mg 2 [...] Bioprosthetic mitral valve replacement / SNOMED CT 858150772 / Confirmed Chronic kidney disease / SNOMED CT 9250256497 / Confirmed COPD - Chronic obstructive pulmonary disease / SNOMED CT 552336341 / Confirmed History of obstructive sleep apnea / IMO 11627765 / Confirmed HLD - Hyperlipidemia / SNOMED CT 659402255 / Confirmed HTN - Hypertension / SNOMED CT 9402701530 / Confirmed Canceled: Atrial fibrillation / SNOMED CT 73854632, Active Problems (25) AIHA (autoimmune hemolytic anemia) [...] GFR adjust medications. Electronically signed by Lanny, [facility] Conversion Tube Lancer Cerner at 03/09/2023 8:43 PM CDT documented in this encounter Plan of Treatment Not on file documented as of this encounter Visit Diagnoses Not on filedocumented in this encounter Care Teams Batch Weigher Relationship Specialty Start Date End Date Reji Castro MD [address] [place] [address] PCP - General Adolescent Medicine 10/02/22 documented as of this encounter
--- OUTSIDE RECORDS SUMMARY | 2025-05-10 10:20 | XMS_ITS | Encounter Summary ---
Author Organization [employer] Address [address] [place] [address] Care Team Providers Care Sales Technician Home Theater Name Role Phone Reji Castro MD Primary Care Provider [phone] Encounter Details Date Type Department Care Team (Late st Contact Info) Description 08/15/[address] [facility] [place] Family Medicine [facility] [address] ProviderDelvin MD [facility] [place], [place] [address] Social History Tobacco Use Types Packs/Day Years Used Date Smoking Tobacco: Never Assessed Comments Unknown Sex and Gender Information Value Date Recorded Sex Assigned at Not on file Legal Sex Female 4:32 PM CDT Gender Identity Not on file Sexual Orientation Not on file documented as of this encounter Miscellaneous Notes * Cerner Conversion Note - Delvin ProviderMD - 08/15/2021 2:00 AM CDT Die Attaching Machine Tender Details Entered On: 08/15/2021 1:25 EDT Performed [...] filedocumented in this encounter Care Teams Sales Technician Home Theater Relationship Specialty Start Date End Date Reji Castro MD [address] [place] [id number] PCP - General Adolescent Medicine 10/02/22 documented as of this encounter
--- OUTSIDE RECORDS SUMMARY | 2025-05-10 10:20 | XMS_ITS | Encounter Summary ---
Author Organization [employer] Address [address] [place] [address] Care Team Providers Care Mechanical Maintenance Worker Name Role Phone Reji Castro MD Primary Care Provider [phone] Encounter Details Date Type Department Care Team (Late st Contact Info) Description 08/15/2021 Transcribed Document [facility] Family Medicine [address] [place] [address] ProviderDelvin MD [address] [place] [address] Social History Tobacco Use Types Packs/Day Years [...] filedocumented in this encounter Care Teams Mechanical Maintenance Worker Relationship Specialty Start Date End Date Reji Castro MD [address] [place] [address] PCP - General Adolescent Medicine 10/02/22 documented as of this encounter
[2025-05-10 10:21] VITALS: BMI 31.2
--- OUTSIDE RECORDS SUMMARY | 2025-05-10 10:21 | XMS_ITS | Clinical Summary ---
Author Organization [facility] Address [address] [facility] [address] [place] [address] Phone Care Team Providers Care Field Representative/Health Education Name Role Phone Joan Moore MD [phone] [ ] Conditions or Problems Problem Name Problem Code Onset Date Status Entry Date Provider Comment Standard Description Annotate Bloodstream infection due to port, subsequent encounter(s) T80.211D (ICD-10-CM) Active 0 Lisa Torres Bloodstream infection due to central venous catheter, subsequent encounter Coag-negative staph sepsis/septic meia A41.1 (ICD-10-CM) Active 0 Lisa Torres Sepsis due to other specified staphylococcus Autoimmune hemolytic anemia, unspecified 907879958 (SNOMED CT) Active 0 Lisa Torres Autoimmune hemolytic anemia COPD 71992754 (SNOMED CT) Active 0 Lisa Torres Chronic obstructive pulmonary disease Presence of prosthetic heart valve Z95.2 (ICD-10-CM) Active 0 Lisa Torres Presence of prosthetic heart valve HTN CKD, bgn, 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) 0959759 (SNOMED CT) Active 0 Lisa Torres Benign essential hypertension Medications Medication Instructions Start Date Stop Date Generic Name [facility] Provider CEFTRIAXONE SODIUM 1 GM SOLR 2gm IV Q 24hrs through 09/08 [facility] [phone] ceftriaxone 91794278190 [place] LEVOTHYROXINE SODIUM 25 MCG TABS TAKE 1 TABLET BY MOUTH DAILY levothyroxine 70791759606 Belkis Mattson BUMETANIDE 2 MG TABS bumetanide 32870620957 Belkis Mattson DEXILANT 60 MG CPDR dexlansoprazole 92905759851 Belkis Mattson OLOPATADINE HCL 0.2 % SOLN olopatadine 86692357604 Belkis Mattson ALPRAZOLAM 0.5 MG TABS alprazolam 29507016677 Belkis Mattson WARFARIN SODIUM 4 MG TABS warfarin 23424740848 Belkis Mattson SPIRONOLACTONE 25 MG TABS TAKE 1 TABLET BY MOUTH ONCE A DAY. spironolactone 08565784464 Belkis Mattson FOLIC ACID 1 MG TABS TAKE 1 TABLET BY MOUTH ONCE A DAY. folic acid 89857589980 Belkis Mattson RAMY ASPIRIN EC LOW DOSE 81 MG TBEC aspirin 61676133593 Belkis Mattson CELEXA 40 MG TABS citalopram 80804748459 Belkis Mattson docusate sodium unspecified unspecified docusate sodium 49822760367 Angelita Mattson FAMOTIDINE 20 MG TABS famotidine 80927977674 Belkis Mattson PERCOCET 10-325 MG TABS oxycodone-acetam i nophen 85443926717 Belkis Mattson TOPROL XL 25 MG [id number] metoprolol succinate 69296237259 Belkis Mattson CEFTRIAXONE SODIUM 1 GM SOLR 2gm IV Q 24hrs through 09/08 [facility] HH [phone] ceftriaxone 51203318205 [facility] Medications Administered No information available. Allergies, Adverse Reactions, Alerts Allergy Name Reaction Description Start Date Severity Statu s Provider THEOPHYLLINE ER Moderate Active Bethany celiafan Mattson PROPAFENONE HCL Moderate Active Btehany ronan Mattson PENICILLIN V POTASSIUM Moderate Active [...]
--- OUTSIDE RECORDS SUMMARY | 2025-05-10 10:21 | XMS_ITS | Encounter Summary ---
Author Organization [employer] Address [address] [place] [address] Care Team Providers Care Division Order Technician Name Role Phone Reji Castro MD Primary Care Provider [phone] Encounter Details Date Type Department Care Team (Late st Contact Info) Description 08/17/2021 Transcribed Document [facility] [place] Family Medicine [facility] [place] [address] ProviderDelvin MD [address] [place] [address] Social History Tobacco Use Types Packs/Day Years [...] HPI: 56 y/o F presenting to [facility] with history of COPD, atrial fibrillation, CKD [...] mg, 14 mL, 128 mL/Hr, IV Piggyback, [id number]. diphenhydrAMINE: 50 mg, IV Push, On-CALL, PRN: [...] questions. Thank you, Andrea Moraes, PharmD PGY1 Funeral Assistant Pager: [phone], [phone]. [phone] documented in this encounter Plan of Treatment Not on file documented as of this encounter Visit Diagnoses Not on filedocumented in this encounter Care Teams Division Order Technician Relationship Specialty Start Date End Date Reji Castro MD [address] [place] [address] PCP - General Adolescent Medicine 10/02/22 documented as of this encounter
--- OUTSIDE RECORDS SUMMARY | 2025-05-10 10:21 | XMS_ITS | Encounter Summary ---
Author Organization [employer] Address [address] [place] [address] Care Team Providers Care Writing Center Director Name Role Phone Reji Castro MD Primary Care Provider [phone] Encounter Details Date Type Department Care Team (Late st Contact Info) Description 08/17/2021 Transcribed Document [facility] [place] [address] [place] [address] ProviderDelvin MD [address] [place] [address] Social History Tobacco Use Types Packs/Day Years [...] [address] [place] [address] PCP - General Adolescent Medicine 10/02/22 documented as of this encounter
--- OUTSIDE RECORDS SUMMARY | 2025-05-10 10:21 | XMS_ITS | Encounter Summary ---
Author Organization [employer] Address [address] [place] [address] Care Team Providers Care Inspector Mechanical Name Role Phone Reji Castro MD Primary Care Provider [phone] Encounter Details Date Type Department Care Team (Late st Contact Info) Description 08/13/2021 Transcribed Document [facility] Family Medicine [address] [place] [address] ProviderDelvin MD [address] [place] [address] Social History Tobacco Use Types Packs/Day Years [...] Author: CHELI BEASLEY MD-CAR Basic Information Primary Immigration Officer: Dr. Delmar Geronimo Building Associate: MD Nestor Subjective NAD Health Status Current [...] mL 700 mg 14 mL, IV Piggyback, [id number] DAPTOmycin + NaCl 0.9% 50 mL 700 mg 14 mL, IV Piggyback, [id number] famotidine 20 mg tab 20 mg 1 [...] of motion, Normal strength. Integumentary: Warm, Dry, Pen Mar. Neurologic: Alert, Oriented. Psychiatric: Cooperative, Appropriate mood & affect. Results Review AUG 13 05:19 136 103 H 50 / 102 4.5 30 H 1.60 \ AUG 13 05:19 \ L 8.5 / 5.5 197 / L 28.7 \ Cardiac Markers (Current Encounter/Past 24 Hours) CK 87 Units/Liter 08/13/2021 05:53 ProBNP 587 pg/mL HI 08/13/2021 05:58 Radiology Results (Last 48 hours) [id number] -- 08/11/2021 21:21 CR Chest 1 Vw [...] mechan MV, 4+ TR, no vegetation. Admitted [facility] 07/12, Negative CHUCHO, TTE for vegetation [...] mechanical causes of hemolysis. Obtain records from [facility]. Check haptoglobin, LDH, reticulocyte count. Continue other current CV meds. Electronically signed by Lanny [facility] Conversion Rolling Machine Tender Cerner at 03/09/2023 8:50 PM CDT documented in this encounter Plan of Treatment Not on file documented as of this encounter Visit Diagnoses Not on filedocumented in this encounter Care Teams Inspector Mechanical Relationship Specialty Start Date End Date Reji Castro MD [address] [place] [id number] PCP - General Adolescent Medicine 10/02/22 documented as of this encounter
--- OUTSIDE RECORDS SUMMARY | 2025-05-10 10:21 | XMS_ITS | Encounter Summary ---
Author Organization [employer] Address [address] [place] [address] Care Team Providers Care Printing And Stamping Supervisor Name Role Phone Reji Castro MD Primary Care Provider [phone] Encounter Details Date Type Department Care Team (Late st Contact Info) Description 08/24/2021 Transcribed Document [facility] Radiology [address] [place] [address] Loren Solorzano MD [address] [place] [address] [address] [id number] Social History Tobacco Use Types Packs/Day Years [...] cefTRIAXone: 2 Gram, 100 mL/Hr, IV Piggyback, [id number] diphenhydrAMINE: 25 mg, Oral, Q6H, PRN: Itching [...] Oral, BID cefTRIAXone 2 Gram, IV Piggyback, X90KNkm citalopram 20 mg tab 40 mg 2 [...] Bioprosthetic mitral valve replacement / SNOMED CT 830270318 / Confirmed Chronic kidney disease / SNOMED CT 2597445634 / Confirmed COPD - Chronic obstructive pulmonary disease / SNOMED CT 348565402 / Confirmed History of obstructive sleep apnea / IMO 49245173 / Confirmed HLD - Hyperlipidemia / SNOMED CT 571905120 / Confirmed HTN - Hypertension / SNOMED CT 0754235392 / Confirmed Canceled: Atrial fibrillation / SNOMED CT 52905613, Active Problems (25) AIHA (autoimmune hemolytic anemia) [...] 26.6 \ Radiology Results (Last 48 hours) [id number] -- 08/11/2021 21:21 CR Chest 1 Vw [...] Hold home meds SSI #Depression Celexa #Pain [place] 10 mg every 6 hours as needed CODE STATUS. Full code Dispo: Given patient with history of multiple blood transfusion we will keep patient in the hospital on heparin drip and Coumadin till INR therapeutic need IV abx, at least until 09/08. Discussed with community case manager. and pharmcy Time spent 25 minutes documented in this encounter Plan of Treatment Not on file documented as of this encounter Visit Diagnoses Not on filedocumented in this encounter Care Teams Printing And Stamping Supervisor Relationship Specialty Start Date End Date Reji Castro MD [address] [place] [address] PCP - General Adolescent Medicine 10/02/22 documented as of this encounter
--- OUTSIDE RECORDS SUMMARY | 2025-05-10 10:21 | XMS_ITS | Encounter Summary ---
Author Organization [employer] Address [address] [place] [address] Care Team Providers Care Bar Tacker Sewing Machine Name Role Phone Reji Castro MD Primary Care Provider [phone] Encounter Details Date Type Department Care Team (Late st Contact Info) Description 08/13/2021 Transcribed Document [facility] [place] [place] [address] [place] [address] ProviderDelvni MD [address] [place] [address] Social History Tobacco Use Types Packs/Day Years [...] On: 08/13/2021 7:24 EDT by Marline Leija, Self Pay Representative Primary Insurance Authorization Authorization and Policy Numbers : Insurance 1 Health Plan: [employer] PPO Policy Number: [id number] Authorization Number: Insurance 2 Health Plan: [place] Policy Number: [id number] Authorization Number: Insurance Primary Name : [employer] PPO Policy Number: [id number] Authorization Status-Primary : Notification only Reference Number-Primary : [id number] Authorization Number-Primary : [id number] Authorized Service Begin Date-Primary : 08/11/2021 EDT Authorization Comments-Primary : Authorized per email from Khari Cohen RN. Historical Authorization Comments-Primary : Comment 1: Pend ref no per Availity, reviewer has access to Cer[employer] (JORGE VALLES RN 08/12/2021 14:07) Marline Leija, Self Pay Representative - 08/13/2021 7:24 EDT Electronically signed by Lanny [facility] Conversion Printed Circuit Board Panels Deburrer Cerner at 03/09/2023 8:49 PM CDT documented in this encounter Plan of Treatment Not on file documented as of this encounter Visit Diagnoses Not on filedocumented in this encounter Care Teams Bar Tacker Sewing Machine Relationship Specialty Start Date End Date Reji Castro MD [address] [place] [id number] PCP - General Adolescent Medicine 10/02/22 documented as of this encounter
--- OUTSIDE RECORDS SUMMARY | 2025-05-10 10:21 | XMS_ITS | Encounter Summary ---
Author Organization [employer] Address [address] [place] [address] Care Team Providers Care Director Compliance Name Role Phone Reji Castro MD Primary Care Provider [phone] Encounter Details Date Type Department Care Team (Late st Contact Info) Description 08/18/2021 Transcribed Document [facility] [place] [address] [place] [address] ProviderDelvin MD [address] [place] [address] Social History Tobacco Use Types Packs/Day Years [...] Spiritual Care Intervention/Comment/Summary Points : PreSurgery visit Alevism Preference : Nondenominational FAIZA ARIZA - 09/02/2021 12:43 EDT documented in this encounter Plan of Treatment Not on file documented as of this encounter Visit Diagnoses Not on filedocumented in this encounter Care Teams Director Compliance Relationship Specialty Start Date End Date Reji Castro MD [address] [place] [address] PCP - General Adolescent Medicine 10/02/22 documented as of this encounter
--- OUTSIDE RECORDS SUMMARY | 2025-05-10 10:21 | XMS_ITS | Encounter Summary ---
Author Organization [employer] Address [address] [place] [address] Care Team Providers Care Director Of Family Service Center Name Role Phone Reji Castro MD Primary Care Provider [phone] Encounter Details Date Type Department Care Team (Late st Contact Info) Description 08/23/2021 Transcribed Document [facility] [place] [address] [place] [address] ProviderDelvin MD [address] [place] [address] Social History Tobacco Use Types Packs/Day Years Used Date Smoking Tobacco: Never Assessed Comments Unknown Sex and Gender Information Value Date Recorded Sex Assigned at Not on file Legal Sex Female 4:32 PM CDT Gender Identity Not on file Sexual Orientation Not on file documented as of this encounter Miscellaneous Notes * Cerner Conversion Note - Historical ProviderMD - 08/23/2021 2:00 AM CDT Agricultural Specialist Details Entered On: 08/23/2021 2:15 EDT Performed On: 08/23/2021 2:00 EDT by Cecilia Lai, Livestock Breeder-Student Nurse Order Details Transport Mode Order Detail : Wheelchair Isolation Precautions Order Detail : Standard Precautions Order Detail : 0 IV Order Detail : 1 Oxygen Order Detail : 0 Lift/Transfer : Independent Central Line Order Detail : Yes Room Service : Appropriate Arterial Line : No Patient Needs Meds Crushed/Liquid : No Cecilia Lai, Livestock Breeder-Student Nurse - 08/23/2021 2:15 EDT documented in this encounter Plan of Treatment Not on file documented as of this encounter Visit Diagnoses Not on filedocumented in this encounter Care Teams Director Of Family Service Center Relationship Specialty Start Date End Date Rjei Castro MD [address] [place] [address] PCP - General Adolescent Medicine 10/02/22 documented as of this encounter
--- OUTSIDE RECORDS SUMMARY | 2025-05-10 10:21 | XMS_ITS | Encounter Summary ---
Author Organization [facility] Address [address] [place] [address] Care Team Providers Care Manager Global Communications Name Role Phone Reji Castro MD Primary Care Provider [phone] Encounter Details Date Type Department Care Team (Late st Contact Info) Description 05/07/2025 Orders Only External Location [address] [place] [address] Provider, External Social History Tobacco Use Types [...] place to sleep or slept in a care home (including now)? No 11/19/2023 Utilities Answer Date [...] Date/Time Associated Diagnosis Comments XR OUTSIDE IMAGES 05/07/2025 1:37 PM EDT documented in this encounter Results * XR OUTSIDE IMAGES (05/07/2025 1:37 PM EDT) Anatomical Region Laterality Modality Radiographic Silvia ging 05/07/2025 1:37 PM EDT us External Provider IMG XR PROCEDURES Final Result documented in this encounter Visit Diagnoses Not on filedocumented in this encounter Additional Health Concerns Assessment Noted Time A fall risk assessment has been complete d for the patient 12/08/2023 10:42 AM EST A Body Mass Index follow-up plan has been documented for the patient 01/29/2025 12:26 PM EDT documented as of this encounter Care Teams Manager Global Communications Relationship Specialty Start Date End Date Reji Castro MD [address] [place] [id number] PCP - General Internal Medicine 12/08/23 documented as of this encounter
--- OUTSIDE RECORDS SUMMARY | 2025-05-10 10:21 | XMS_ITS | Encounter Summary ---
Author Organization [employer] Address [address] [place] [address] Care Team Providers Care Monorail Car Operator Name Role Phone Reji Castro MD Primary Care Provider [phone] Encounter Details Date Type Department Care Team (Late st Contact Info) Description 08/23/2021 Transcribed Document [facility] [place] [address] [place], [place] [address] ProviderDelvin MD [address] [place] [address] Social History Tobacco Use Types Packs/Day Years [...] cefTRIAXone: 2 Gram, 100 mL/Hr, IV Piggyback, M93FQtt diphenhydrAMINE: 25 mg, Oral, Q6H, PRN: Itching [...] Oral, BID cefTRIAXone 2 Gram, IV Piggyback, P90SIrh citalopram 20 mg tab 40 mg 2 [...] Bioprosthetic mitral valve replacement / SNOMED CT 150680390 / Confirmed Chronic kidney disease / SNOMED CT 4906130311 / Confirmed COPD - Chronic obstructive pulmonary disease / SNOMED CT 253486712 / Confirmed History of obstructive sleep apnea / IMO 24090512 / Confirmed HLD - Hyperlipidemia / SNOMED CT 359561259 / Confirmed HTN - Hypertension / SNOMED CT 1617151287 / Confirmed Canceled: Atrial fibrillation / SNOMED CT 36968092, Active Problems (25) AIHA (autoimmune hemolytic anemia) [...] Monitor GFR adjust medications. Electronically signed by [facility], [facility] Conversion Gut Dropper Cerner at 03/09/2023 8:48 PM CDT documented in this encounter Plan of Treatment Not on file documented as of this encounter Visit Diagnoses Not on filedocumented in this encounter Care Teams Monorail Car Operator Relationship Specialty Start Date End Date Reji Castro MD [address] [place] [address] PCP - General Adolescent Medicine 10/02/22 documented as of this encounter
--- OUTSIDE RECORDS SUMMARY | 2025-05-10 10:21 | XMS_ITS | Encounter Summary ---
Author Organization [facility] Address [address] [place] [address] Care Team Providers Care Nursing Staff Development Coordinator Name Role Phone Reji Castro MD Primary Care Provider [phone] Encounter Details Date Type Department Care Team (Late st Contact Info) Description 05/07/2025 Orders Only External Location [address] [place] [address] Provider, External Social History Tobacco Use Types [...] place to sleep or slept in a penitentiary (including now)? No 11/19/2023 Utilities Answer Date [...] THORACIC OUTSIDE IMAGES 05/07/2025 2:32 PM EDT documented in this encounter Results * CT THORACIC OUTSIDE IMAGES (05/07/2025 2:32 PM EDT) Anatomical Region Laterality Modality Computed Tomogra phy 05/07/2025 2:32 PM EDT us External Provider IMG CT PROCEDURES Final Result documented in this encounter Visit Diagnoses Not on filedocumented in this encounter Additional Health Concerns Assessment Noted Time A fall risk assessment has been complete d for the patient 12/08/2023 10:42 AM EST A Body Mass Index follow-up plan has been documented for the patient 01/29/2025 12:26 PM EDT documented as of this encounter Care Teams Nursing Staff Development Coordinator Relationship Specialty Start Date End Date Reji Castro MD [address] [place] [id number] PCP - General Internal Medicine 12/08/23 documented as of this encounter
--- OUTSIDE RECORDS SUMMARY | 2025-05-10 10:21 | XMS_ITS | Encounter Summary ---
Author Organization [employer] Address [address] [place] [address] Care Team Providers Care Matching Machine Operator Name Role Phone Reji Castro MD Primary Care Provider [phone] Encounter Details Date Type Department Care Team (Late st Contact Info) Description 08/23/2021 Transcribed Document [facility] [place] Family Medicine [facility] [place] [address] ProviderDelvin MD [address] [place] [address] Social History Tobacco Use Types Packs/Day Years [...] y/o F presenting to [facility] with history of COPD, atrial fibrillation, CKD [...] cefTRIAXone: 2 Gram, 100 mL/Hr, IV Piggyback, Q70QZwu. citalopram: 40 mg, Oral, Daily. diphenhydrAMINE: 25 [...] you, Noy Garrett, PharmD PGY-1 Resident Pager #[phone] Electronically signed by [facility], [facility] Conversion Leaflet Distributor Cerner at 03/09/2023 8:59 PM CDT documented in this encounter Plan of Treatment Not on file documented as of this encounter Visit Diagnoses Not on filedocumented in this encounter Care Teams Matching Machine Operator Relationship Specialty Start Date End Date Reji Castro MD [address] [place] [address] PCP - General Adolescent Medicine 10/02/22 documented as of this encounter
--- OUTSIDE RECORDS SUMMARY | 2025-05-10 10:21 | XMS_ITS | Encounter Summary ---
Author Organization [employer] Address [address] [place] [address] Care Team Providers Care Plastic Surgery Assistant Name Role Phone Reji Castro MD Primary Care Provider [phone] Encounter Details Date Type Department Care Team (Late st Contact Info) Description 08/18/2021 Transcribed Document [facility] [place] [address] [place] [address] ProviderDelvin MD [address] [place] [address] Social History Tobacco Use Types Packs/Day Years [...] # 0.52 x10(3)/uL (Low) 08/18/2021 06:56 EDT [place] % 8.7 % 08/18/2021 06:56 EDT [place] # 0.61 K/uL 08/18/2021 06:56 EDT Eos [...] (High) 08/18/2021 06:56 EDT Electronically signed by [facility], [facility] Conversion Sap Payroll Consultant Cerner at 03/09/2023 9:00 PM CDT documented in this encounter Plan of Treatment Not on file documented as of this encounter Visit Diagnoses Not on filedocumented in this encounter Care Teams Plastic Surgery Assistant Relationship Specialty Start Date End Date Reji Castro MD [address] [place] [id number] PCP - General Adolescent Medicine 10/02/22 documented as of this encounter
--- OUTSIDE RECORDS SUMMARY | 2025-05-10 10:21 | XMS_ITS | Encounter Summary ---
Author Organization [employer] Address [address] [place] [address] Care Team Providers Care It Systems Engineer Name Role Phone Reji Castro MD Primary Care Provider + [phone] Encounter Details Date Type Department Care Team (Late st Contact Info) Description 08/17/2021 Transcribed Document [facility] [place] [facility] [place] [address] ProviderDelvin MD [address] [place] [address] Social History Tobacco Use Types Packs/Day Years [...] filedocumented in this encounter Care Teams It Systems Engineer Relationship Specialty Start Date End Date Reji Castro MD [address] [place] [address] PCP - General Adolescent Medicine 10/02/22 documented as of this encounter
--- OUTSIDE RECORDS SUMMARY | 2025-05-10 10:21 | XMS_ITS | Encounter Summary ---
Author Organization [employer] Address [address] [place] [address] Care Team Providers Care Orange Picker Name Role Phone Reji Castro MD Primary Care Provider + [phone] Encounter Details Date Type Department Care Team (Late st Contact Info) Description 08/17/2021 Transcribed Document [facility] [place] [facility] [place] [address] ProviderDelvin MD [facility] [place] [address] Social History Tobacco Use Types Packs/Day Years [...] her port could not be accessed. Her seam stayer aspirated fluid from the port that was [...] antibiotics. On 08/08 she presented to a [facility] after she developed severe CHEUNG and myalgias w/o prominent fever. She was subsequently contacted and told to report to [facility] because she had + blood cutures concerning for an infected portacath +/- PVE. 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 Integumentary: Warm, Acme. Neurologic: Alert, Oriented, No focal deficits. Psychiatric: [...] of paula cath Electronically signed by Lanny, [facility] Conversion Farm Crew Leader Cerner at 03/09/2023 8:42 PM CDT documented in this encounter Plan of Treatment Not on file documented as of this encounter Visit Diagnoses Not on filedocumented in this encounter Care Teams Orange Picker Relationship Specialty Start Date End Date Reji Castro MD [address] [place] [address] PCP - General Adolescent Medicine 10/02/22 documented as of this encounter
--- OUTSIDE RECORDS SUMMARY | 2025-05-10 10:21 | XMS_ITS | Encounter Summary ---
Author Organization [employer] Address [address] [place] [address] Care Team Providers Care Rn Women Services Name Role Phone Reji Castro MD Primary Care Provider [phone] Encounter Details Date Type Department Care Team (Late st Contact Info) Description 08/24/2021 Transcribed Document [facility] [place] [address] [place], [place] [id number] ProviderDelvin MD [address] [place] [address] Social History Tobacco Use Types Packs/Day Years [...] cefTRIAXone: 2 Gram, 100 mL/Hr, IV Piggyback, [id number] diphenhydrAMINE: 25 mg, Oral, Q6H, PRN: Itching [...] Oral, BID cefTRIAXone 2 Gram, IV Piggyback, [id number] citalopram 20 mg tab 40 mg 2 [...] Bioprosthetic mitral valve replacement / SNOMED CT 361770349 / Confirmed Chronic kidney disease / SNOMED CT 9498024010 / Confirmed COPD - Chronic obstructive pulmonary disease / SNOMED CT 772724183 / Confirmed History of obstructive sleep apnea / IMO 66772881 / Confirmed HLD - Hyperlipidemia / SNOMED CT 755656312 / Confirmed HTN - Hypertension / SNOMED CT 5622192531 / Confirmed Canceled: Atrial fibrillation / SNOMED CT 06190519, Active Problems (25) AIHA (autoimmune hemolytic anemia) [...] GFR adjust medications. Electronically signed by Lanny, [facility] Conversion Tourist Information Officer Cerner at 03/09/2023 8:38 PM CDT documented in this encounter Plan of Treatment Not on file documented as of this encounter Visit Diagnoses Not on filedocumented in this encounter Care Teams Rn Women Services Relationship Specialty Start Date End Date Reji Castro MD [address] [place] [address] PCP - General Adolescent Medicine 10/02/22 documented as of this encounter
--- OUTSIDE RECORDS SUMMARY | 2025-05-10 10:21 | XMS_ITS | Encounter Summary ---
Author Organization [employer] Address [address] [place] [address] Care Team Providers Care Scientist Immunology Name Role Phone Reji Castro MD Primary Care Provider [phone] Encounter Details Date Type Department Care Team (Late st Contact Info) Description 08/23/2021 Transcribed Document [facility] [place] [address] [place] [address] ProviderDelvin MD [address] [place] [address] Social History Tobacco Use Types Packs/Day Years [...] On: 08/23/2021 5:00 EDT by Cecilia Lai, Test Carrier-Student Nurse Chart Check Powerplans Initiated/Discontinued as Appropriate : Yes All Active Orders Reviewed : Yes Cecilia Lai Test Carrier-Student Nurse - 08/23/2021 5:19 EDT documented in this encounter Plan of Treatment Not on file documented as of this encounter Visit Diagnoses Not on filedocumented in this encounter Care Teams Scientist Immunology Relationship Specialty Start Date End Date Reji Castro MD [address] [place] [address] PCP - General Adolescent Medicine 10/02/22 documented as of this encounter
--- OUTSIDE RECORDS SUMMARY | 2025-05-10 10:21 | XMS_ITS | Encounter Summary ---
Author Organization [employer] Address [address] [place] [address] Care Team Providers Care Child Day Care Provider Name Role Phone Reji Castro MD Primary Care Provider [phone] Encounter Details Date Type Department Care Team (Late st Contact Info) Description 08/23/2021 Transcribed Document [facility] Radiology [address] [place] [address] Loren Solorzano MD [address] [place] [address] [address] [place] [id number] Social History Tobacco Use Types Packs/Day Years [...] cefTRIAXone: 2 Gram, 100 mL/Hr, IV Piggyback, [id number] diphenhydrAMINE: 25 mg, Oral, Q6H, PRN: Itching [...] Oral, BID cefTRIAXone 2 Gram, IV Piggyback, [id number] citalopram 20 mg tab 40 mg 2 [...] Bioprosthetic mitral valve replacement / SNOMED CT 133135962 / Confirmed Chronic kidney disease / SNOMED CT 0874453494 / Confirmed COPD - Chronic obstructive pulmonary disease / SNOMED CT 160878686 / Confirmed History of obstructive sleep apnea / IMO 50355318 / Confirmed HLD - Hyperlipidemia / SNOMED CT 727066252 / Confirmed HTN - Hypertension / SNOMED CT 0170376480 / Confirmed Canceled: Atrial fibrillation / SNOMED CT 52149962, Active Problems (25) AIHA (autoimmune hemolytic anemia) [...] 26.0 \ Radiology Results (Last 48 hours) [id number] -- 08/11/2021 21:21 CR Chest 1 Vw [...] Hold home meds SSI #Depression Celexa #Pain [place] 10 mg every 6 hours as needed CODE STATUS. Full code Dispo: Given patient with history of multiple transfusion we will keep patient in the hospital on heparin drip and Coumadin till INR therapeutic need IV abx, at least until 09/08. Discussed with senior case manager. and pharmcy Time spent 25 minutes documented in this encounter Plan of Treatment Not on file documented as of this encounter Visit Diagnoses Not on filedocumented in this encounter Care Teams Child Day Care Provider Relationship Specialty Start Date End Date Reji Castro MD [address] [place] [address] PCP - General Adolescent Medicine 10/02/22 documented as of this encounter
--- OUTSIDE RECORDS SUMMARY | 2025-05-10 10:21 | XMS_ITS | Encounter Summary ---
Author Organization [employer] Address [address] [place] [address] Care Team Providers Care Gill Box Operator Name Role Phone Reji Castro MD Primary Care Provider + [phone] Encounter Details Date Type Department Care Team (Late st Contact Info) Description 08/17/2021 Transcribed Document [facility] [place] [address] [place] [address] ProviderDelvin MD [address] [place] [address] Social History Tobacco Use Types Packs/Day Years [...] 08/17/2021 6:06 EDT Electronically signed by Lanny [facility] Conversion City Carrier Assistant Marisa at 03/09/2023 8:53 PM CDT documented in this encounter Plan of Treatment Not on file documented as of this encounter Visit Diagnoses Not on filedocumented in this encounter Care Teams Gill Box Operator Relationship Specialty Start Date End Date Reji Castro MD [address] [place] [address] PCP - General Adolescent Medicine 10/02/22 documented as of this encounter
--- OUTSIDE RECORDS SUMMARY | 2025-05-10 10:21 | XMS_ITS | Encounter Summary ---
Author Organization [employer] Address [address] [place] [address] Care Team Providers Care Aeronautical Test Engineer Name Role Phone Reji Castro MD Primary Care Provider + [phone] Encounter Details Date Type Department Care Team (Late st Contact Info) Description 08/13/2021 Transcribed Document [facility] [place] [facility] [place] [address] ProviderDelvin MD [address] [place] [address] Social History Tobacco Use Types Packs/Day Years [...] On: 08/13/2021 9:56 EDT by Reina Tian, RECRUITMENT AND OUTREACH ASSISTANT Phone Call for Consults Consult Phone Call/Page Attempt : First call Consult Reason : paula cath infection, needing removal Physician Requested for Consult : Elieser VERNON MD-TATYANA Date and Time Call Returned : 08/14/2021 10:08 EDT Reina Tian, RECRUITMENT AND OUTREACH ASSISTANT - 08/13/2021 10:09 EDT documented in this encounter Plan of Treatment Not on file documented as of this encounter Visit Diagnoses Not on filedocumented in this encounter Care Teams Aeronautical Test Engineer Relationship Specialty Start Date End Date Reji Castro MD [address] [place] [address] PCP - General Adolescent Medicine 10/02/22 documented as of this encounter
--- OUTSIDE RECORDS SUMMARY | 2025-05-10 10:21 | XMS_ITS | Encounter Summary ---
Author Organization [employer] Address [address] [place] [address] Care Team Providers Care Historic Interpreter Name Role Phone Reji Castro MD Primary Care Provider [phone] Encounter Details Date Type Department Care Team (Late st Contact Info) Description 08/17/2021 Transcribed Document [facility] [place] [address] [place] [address] ProviderDelvin MD [address] [place] [address] Social History Tobacco Use Types Packs/Day Years [...] on filedocumented in this encounter Care Teams Historic Interpreter Relationship Specialty Start Date End Date Reji Castro MD [address] [place] [address] PCP - General Adolescent Medicine 10/02/22 documented as of this encounter
--- OUTSIDE RECORDS SUMMARY | 2025-05-10 10:21 | XMS_ITS | Encounter Summary ---
Author Organization [employer] Address [address] [place] [address] Care Team Providers Care Manager Process Excellence Name Role Phone Reji Castro MD Primary Care Provider [phone] Encounter Details Date Type Department Care Team (Late st Contact Info) Description 08/23/2021 Transcribed Document [facility] [place] [address] [place] [address] ProviderDelvin MD [address] [place] [address] Social History Tobacco Use Types Packs/Day Years [...] 08/23/2021 18:47 EDT Electronically signed by Lanny [facility] Conversion Glove Factory Sewer Cerner at 03/09/2023 8:57 PM CDT documented in this encounter Plan of Treatment Not on file documented as of this encounter Visit Diagnoses Not on filedocumented in this encounter Care Teams Manager Process Excellence Relationship Specialty Start Date End Date Reji Castro MD [address] [place] [address] PCP - General Adolescent Medicine 10/02/22 documented as of this encounter
--- OUTSIDE RECORDS SUMMARY | 2025-05-10 10:21 | XMS_ITS | Encounter Summary ---
Author Organization [employer] Address [address] [place] [address] Care Team Providers Care Inventory And Pricing Associate Name Role Phone Reji Castro MD Primary Care Provider + [phone] Encounter Details Date Type Department Care Team (Late st Contact Info) Description 08/18/2021 Transcribed Document [facility] [place] [facility] [place] [address] ProviderDelvin MD [address] [place] [address] Social History Tobacco Use Types Packs/Day Years [...] History of obstructive sleep apnea / IMO 75327147 / Confirmed Bioprosthetic mitral valve replacement / SNOMED CT 184554793 / Confirmed Chronic kidney disease / SNOMED CT 4558446047 / Confirmed COPD - Chronic obstructive pulmonary disease / SNOMED CT 198796704 / Confirmed HTN - Hypertension / SNOMED CT 7842843149 / Confirmed HLD - Hyperlipidemia / SNOMED CT 842073496 / Confirmed Amblyopia / SNOMED CT 0125022249 / Confirmed 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 / SNOMED CT 846714400 / Confirmed Myocardial infarction / SNOMED CT 65982628 / Confirmed Atrial fibrillation / SNOMED CT 22805043 / Confirmed GERD - Gastro-esophageal reflux disease / SNOMED CT 8767203509 / Confirmed Diverticulosis / SNOMED CT 0593196872 / Confirmed Hepatomegaly / SNOMED CT 754272153 / Confirmed Renal calculus / SNOMED CT 103400525 / Confirmed Ovarian cyst / SNOMED CT 729161876 / Confirmed Arthritis / SNOMED CT 9018523 / Confirmed Back pain / PNED [id number] / Confirmed Fibromyalgia / SNOMED CT 74998657 / Confirmed Restless legs syndrome / SNOMED CT 69294825 / Confirmed Diabetes mellitus type II / SNOMED CT 76226378 / Confirmed Thyroid disease / SNOMED CT 366617738 / Confirmed Edema / SNOMED CT 085317407 / Confirmed BLE neuropathy hands and feet / Confirmed frequent headache / Confirmed AIHA (autoimmune hemolytic anemia) / SNOMED CT 4736989057 / Confirmed, Active Problems (25) AIHA (autoimmune [...] on filedocumented in this encounter Care Teams Inventory And Pricing Associate Relationship Specialty Start Date End Date Reji Castro MD [address] [place] [address] PCP - General Adolescent Medicine 10/02/22 documented as of this encounter
--- OUTSIDE RECORDS SUMMARY | 2025-05-10 10:21 | XMS_ITS | Encounter Summary ---
Author Organization [employer] Address [address] [place] [address] Care Team Providers Care Cherry Grower Name Role Phone Reji Castro MD Primary Care Provider [phone] Encounter Details Date Type Department Care Team (Late st Contact Info) Description 08/18/2021 Transcribed Document [facility] [place] [address] [place] [address] ProviderDelvin MD [address] [place] [address] Social History Tobacco Use Types Packs/Day Years [...] on filedocumented in this encounter Care Teams Cherry Grower Relationship Specialty Start Date End Date Reji Castro MD [address] [place] [address] PCP - General Adolescent Medicine 10/02/22 documented as of this encounter
--- OUTSIDE RECORDS SUMMARY | 2025-05-10 10:22 | XMS_ITS | Encounter Summary ---
Author Organization [employer] Address [address] [place] [address] Care Team Providers Care Lithographic Press Operator Apprentice Name Role Phone Reji Castro MD Primary Care Provider + [phone] Encounter Details Date Type Department Care Team (Late st Contact Info) Description 08/13/[address] [facility] [place] [facility] [place] [address] ProviderDelvin MD [address] [place] [address] Social History Tobacco Use Types Packs/Day Years [...] 56 y/o F presenting to [facility] with history of COPD, atrial fibrillation, [...] Encounter/Past 24 Hours) Creatinine Level 1.60 mg/dL GA 08/13/2021 06:13 Bun/Creatinine 31.2 GA 08/13/2021 06:13 Est. CrCl: 61 mL/min Intake [...] questions. Thank you, Andrea Moraes, PharmD PGY1 Academy Education Director Pager: [phone], [phone]. [phone] Electronically signed by Lanny [facility] Conversion Reconcilement Clerk Cerner at 03/09/2023 8:40 PM CDT documented in this encounter Plan of Treatment Not on file documented as of this encounter Visit Diagnoses Not on filedocumented in this encounter Care Teams Lithographic Press Operator Apprentice Relationship Specialty Start Date End Date Reji Castro MD [address] [place] [address] PCP - General Adolescent Medicine 10/02/22 documented as of this encounter
--- OUTSIDE RECORDS SUMMARY | 2025-05-10 10:22 | XMS_ITS | Encounter Summary ---
Author Organization [employer] Address [address] [place] [address] Care Team Providers Care Tribal Judge Name Role Phone Reji Castro MD Primary Care Provider [phone] Encounter Details Date Type Department Care Team (Late st Contact Info) Description 08/13/2021 Transcribed Document [facility] [place] [facility] [place], [place] [address] ProviderDelvin MD [address] [place] [address] Social History Tobacco Use Types Packs/Day Years [...] On: 08/13/2021 10:20 EDT by Reina Tian, AUTOMOTIVE PRODUCT SPECIALIST Phone Call for Consults Consult Phone Call/Page Attempt : Other: BEATRIS Edward was on floor and was notified by Celina Wilder Rn about consult Consult Reason : paula cath inf., needing removal. Physician Requesting Consult : FAIZA YOUSSEF DO Physician Requested for Consult : NENA PEARSON MD-[facility] Physician Covering for Consult : SHEBA CARTY PA Date and Time Call Returned : 08/14/2021 10:39 EDT Reina Tian, AUTOMOTIVE PRODUCT SPECIALIST - 08/13/2021 10:37 EDT Electronically signed by Lanny, [facility] Conversion Oyster Picker Cerner at 03/09/2023 8:38 PM CDT documented in this encounter Plan of Treatment Not on file documented as of this encounter Visit Diagnoses Not on filedocumented in this encounter Care Teams Tribal Judge Relationship Specialty Start Date End Date Reji Castro MD [address] [place] [address] PCP - General Adolescent Medicine 10/02/22 documented as of this encounter
--- OUTSIDE RECORDS SUMMARY | 2025-05-10 10:22 | XMS_ITS | Encounter Summary ---
Author Organization [employer] Address [address] [place] [address] Care Team Providers Care Financial Risk Manager Name Role Phone Reji Castro MD Primary Care Provider [phone] Encounter Details Date Type Department Care Team (Late st Contact Info) Description 08/13/2021 Transcribed Document [facility] [place] [address] [place] [address] ProviderDelvin MD [address] [place] [address] Social History Tobacco Use Types Packs/Day Years [...] filedocumented in this encounter Care Teams Financial Risk Manager Relationship Specialty Start Date End Date Reji Castro MD [address] [place] [address] PCP - General Adolescent Medicine 10/02/22 documented as of this encounter
[2025-05-10 10:37] LABS: Basophils % 0.5 % (0.1-2.0); Eosinophils # 0.2 Kmm3 (0.0-0.4); Hematocrit 29.1 % (37.0-47.0); Hemoglobin 9.1 g/dL (12.2-16.2); Immature Granulocytes # 0.03 10^3uL; Immature Granulocytes % 0.4 %; Lymphocytes # 0.2 K/mm3 (0.7-4.5); Lymphocytes % 2.1 % (10-50); Mean Corpuscular HGB Conc 31.3 g/dL (31.8-35.4); Mean Corpuscular Hemoglobin 26.6 pg (27.0-31.2); Mean Corpuscular Volume 85.1 fl (81-99); Mean Platelet Volume 9.6 fl (7.4-10.4); Monocytes # 0.8 K/mm3 (0.1-1.0); Monocytes % 9.2 % (1.7-9.3); Neutrophils # 7.3 K/mm3 (1.8-7.8); Neutrophils % 85.8 % (37.0-80.0); Nucleated Red Blood Cells # 0 10^3/uL; Nucleated Red Blood Cells % 0 %; Platelet Count 277 K/mm3 (142-424); Red Blood Count 3.42 M/mm3 (4.20-5.40); Red Cell Distribution Width 18.3 % (11.5-17.5); Red Cell Distribution Width-SD 57.3 fL; White Blood Count 8.6 K/mm3 (4.8-10.8)
[2025-05-10 10:45] LABS: Iron 42 ug/dL (37-170)
[2025-05-10 10:46] LABS: MANUAL DIFFERENTIAL MANUAL DIFFERENTIAL (MANUAL DIFF)
[2025-05-10] MEDS: SODIUM CHLORIDE 0.9% 10ML FLUSH SYRINGE 10 ML IV (10:53)
[2025-05-10 10:54] LABS: Total Iron Binding Capacity 398 ug/dL (265-497)
[2025-05-10 11:03] LABS: Eosinophils % 1 % (0-3); Lymphocytes % 4 % (10-50); Monocytes % 7 % (2-9); Neutrophils % 88 % (42-76); Total Cells Counted 100
[2025-05-10 11:05] LABS: Platelet Estimate Normal; RBC Morphology Normal
--- OUTSIDE RECORDS SUMMARY | 2025-05-10 11:18 | XMS_ITS | CCD ---
Author Organization Unknown Care Team Providers Care Faceter Name Role Phone Non Engaged, [facility] Primary Care Provider Unav ailable Unavailable Chronic Care Management Unavaila ble Summary Purpose DataExchange Insurance Providers Payer name Policy type / Coverage type Covered constitution party ID Effective Begin Date Effective End Date [facility] [id number] Unknown Unknown Family History Family History data not found Medication Administered No Medication Administered data Reason For Visit No Reason For Visit data Medical Equipment No Medical Equipment data Advance Directives No Advance Directive data
--- OUTSIDE RECORDS SUMMARY | 2025-05-10 11:21 | XMS_ITS | CCD ---
Author Organization Unknown Care Team Providers Care Municipal Clerk Name Role Phone Non Engaged, [facility] Primary Care Provider Unav ailable Unavailable Chronic Care Management Unavaila ble Summary Purpose DataExchange Insurance Providers Payer name Policy type / Coverage type Covered republican ID Effective Begin Date Effective End Date [facility] [id number] Unknown Unknown Family History Family History data not found Medication Administered No Medication Administered data Reason For Visit No Reason For Visit data Medical Equipment No Medical Equipment data Advance Directives No Advance Directive data
[2025-05-10 11:22] LABS: Ferritin 46.2 ng/ml (11.1-264)
== END 2025-05-10 10:54 | disposition home or self-care (01) ==
LOC: INF 10:15
PROVIDERS: PCP Internal Medicine Adolescent Medicine; Visit Provider Internal Medicine Medical Oncology
DX: D64.9 Anemia, unspecified (principal)
CPT/HCPCS: 36591; 82728; 83540; 83550; 85007; 85025; 85027; J1642

== ENCOUNTER 2025-05-14 10:19 | Outpatient (CLI) | payer MEDICARE, MEDICAID, SELFPAY ==
[2025-05-14 10:37] VITALS: BP 119/74; PULSE 80; RESP 14; TEMP 36.7; O2SAT 98
[2025-05-14] MEDS: SODIUM CHLORIDE 0.9% 10ML FLUSH SYRINGE 10 ML IV (10:37)
[2025-05-14] MEDS: ferumoxytoL 510 MG in 0.9 % SODIUM CHLORIDE 50 ML 268 MG IV (10:37)
[2025-05-14] MEDS: SODIUM CHLORIDE 0.9% 50ML BAG 50 ML IV (10:37)
--- OUTSIDE RECORDS SUMMARY | 2025-05-14 10:44 | XMS_ITS | Encounter Summary ---
Author Organization [employer] Address [address] [place] [address] Care Team Providers Care Railways Assistant Name Role Phone Reji Castro MD Primary Care Provider [phone] Encounter Details Date Type Department Care Team (Late st Contact Info) Description 08/20/2021 Transcribed Document [facility] [place] [address] [place] [address] ProviderDelvin MD [address] [place] [address] Social History Tobacco Use Types Packs/Day Years [...] on filedocumented in this encounter Care Teams Railways Assistant Relationship Specialty Start Date End Date Reji Castro MD [address] [place] [address] PCP - General Adolescent Medicine 10/02/22 documented as of this encounter
--- OUTSIDE RECORDS SUMMARY | 2025-05-14 10:44 | XMS_ITS | Encounter Summary ---
Author Organization [employer] Address [address] [place] [address] Care Team Providers Care Landscape Architect And Planner Name Role Phone Reji Castro MD Primary Care Provider + [phone] Encounter Details Date Type Department Care Team (Late st Contact Info) Description 08/11/2021 Transcribed Document [facility] [place] [address] [place], [place] [address] ProviderDelvin MD [address] [place] [address] Social History Tobacco Use Types Packs/Day Years [...] Unaccompanied Legal Guardian : No Support Person/Patient Meat Manager : Yes Support Person/Pt Rep Name : [...] Obtained From : Patient Primary Language : Indian Communication Barrier : None Communication Lecturer Needed : No Cherri Webb RN - [...] Scale Risk Level : 0-24 Low Risk [place] Fall Interventions : Adequate lighting, Assistive devices [...] Source : Stated Height Entry Format : [place] Height, Feet : 5 ft(Converted to: 152 cm, 60 Inch) Height, Inches : 4 Inch(Converted to: 0 ft 4 Inch, 10.16 cm) Clinical Height : 162.56 cm Weight Source : Standing scale Weight Entry Format : [place] Clinical Dosing Weight : 86.39 kg Weight, Pounds : 190 lb Weight, Ounces : 1 oz Body Surface Area (BSA) : 1.92 m2 Body Mass Index : 32.7 kg/m2 (HI) [place] Body Weight : 54 kg Cherri Webb [...] Cherri Webb RN - 08/11/2021 23:11 EDT [place] Suicide Severity Rating Scale (C-SSRS) CSSRS Past [...] Items : Cell phone, Other: Cell Phone Development Administrator Personal Items Disposition : Bedside Cherri Webb RN - 08/11/2021 23:11 EDT documented in this encounter Plan of Treatment Not on file documented as of this encounter Visit Diagnoses Not on filedocumented in this encounter Care Teams Landscape Architect And Planner Relationship Specialty Start Date End Date Reji Castro MD [address] [place] [address] PCP - General Adolescent Medicine 10/02/22 documented as of this encounter
--- OUTSIDE RECORDS SUMMARY | 2025-05-14 10:44 | XMS_ITS | Encounter Summary ---
Author Organization [employer] Address [address] [place] [address] Care Team Providers Care Consumer Relations Specialist Name Role Phone Reji Castro MD Primary Care Provider [phone] Encounter Details Date Type Department Care Team (Late st Contact Info) Description 08/11/2021 Transcribed Document [facility] [place] [address] ProviderDelvin MD [address] [place] [id number] Social History Tobacco Use Types Packs/Day Years [...] pin. Replacement, mitral valve, with cardiopulmonary bypass (74801). sternotomy. hernia repair, abdominal. sigmoid colon resection. Tendon sheath incision (eg, for trigger finger) (01218). jaw surgery, left. great toe surger, left. [...] % LOW Lymph # 0.76 K/uL LOW Ceiba % 8.9 % Ceiba # 0.61 K/uL Eos % 4.4 % Eos # 0.30 Baso % 0.4 % Baso # 0.03 Slide Review No PT 18.9 Second(s) HI INR 1.8 HI PTT 39.6 Second(s) HI Urine Type U CleanCatch Urine Color Yellow Urine Appearance Clear Urine Specific [place] 1.007 Urine pH Dipstick 6.5 Urine Leukocyte Esterase Negative Urine Nitrite Negative Urine Protein Dipstick Negative Urine Glucose Dipstick Negative Urine Ketones Dipstick Negative Urine Urobilinogen Dipstick 0.2 EU/dL Urine Bilirubin Dipstick Negative Urine Blood Dipstick Negative Ur WBC None Seen /HPF Ur Squamous Epithelial Cells 0-2 /HPF . Radiology results: Radiology Results (Last 48 hours) [id number] -- 08/11/2021 16:16 CR Chest 1 Vw [...] LONGER, Level of Care: Med-Surg, Admitting: REJI UGERRA MD, Attending: REJI GUERRA MD. Counseled: Patient, Regarding diagnosis, Regarding diagnostic results, Regarding treatment plan, Patient indicated understanding of instructions. documented in this encounter Plan of Treatment Not on file documented as of this encounter Visit Diagnoses Not on filedocumented in this encounter Care Teams Consumer Relations Specialist Relationship Specialty Start Date End Date Reji Castro MD [address] [place] [id number] PCP - General Adolescent Medicine 10/02/22 documented as of this encounter
--- OUTSIDE RECORDS SUMMARY | 2025-05-14 10:44 | XMS_ITS | Encounter Summary ---
Author Organization [employer] Address [address] [place] [address] Care Team Providers Care Custom Marine Canvas Fabricator Name Role Phone Reji Castro MD Primary Care Provider [phone] Encounter Details Date Type Department Care Team (Late st Contact Info) Description 08/15/2021 Transcribed Document [facility] [place] Family [place] [address] ProviderDelvin MD [address] [place] [id number] Social History Tobacco Use Types Packs/Day Years [...] On: 08/15/2021 10:34 EDT by JULIO STEWART, RN-Power Switchboard Operator ED Care Management Progress Note Discharge [...] : Clinical Condition of Patient JULIO STEWART, RN-Power Switchboard Operator ED - 08/18/2021 10:34 EDT Narrative [...] and send referrals as appropriate. JULIO STEWART, RN-Power Switchboard Operator ED - 08/18/2021 10:34 EDT Electronically signed by Lanny [facility] Conversion Paraplanner Cerner at 03/09/2023 8:33 PM CDT documented in this encounter Plan of Treatment Not on file documented as of this encounter Visit Diagnoses Not on filedocumented in this encounter Care Teams Custom Marine Canvas Fabricator Relationship Specialty Start Date End Date Reji Castro MD [address] [place] [id number] PCP - General Adolescent Medicine 10/02/22 documented as of this encounter
--- OUTSIDE RECORDS SUMMARY | 2025-05-14 10:44 | XMS_ITS | Encounter Summary ---
Author Organization [employer] Address [address] [place] [address] Care Team Providers Care Linux Support Engineer Name Role Phone Reji Castro MD Primary Care Provider [phone] Encounter Details Date Type Department Care Team (Late st Contact Info) Description 08/11/2021 Transcribed Document [facility] [place] Family Medicine [facility] [place] [address] ProviderDelvin MD [address] [place] [id number] Social History Tobacco Use Types Packs/Day Years [...] by Provider, No further action required X1 documented in this encounter Plan of Treatment Not on file documented as of this encounter Visit Diagnoses Not on filedocumented in this encounter Care Teams Linux Support Engineer Relationship Specialty Start Date End Date Reji Castro MD [address] [place] [id number] PCP - General Adolescent Medicine 11/11/22 documented as of this encounter
--- OUTSIDE RECORDS SUMMARY | 2025-05-14 10:44 | XMS_ITS | Encounter Summary ---
Author Organization [employer] Address [address] [place] [address] Care Team Providers Care Textile Converter Name Role Phone Reji Castro MD Primary Care Provider + [phone] Encounter Details Date Type Department Care Team (Late st Contact Info) Description 08/15/2021 Transcribed Document [facility] [facility] [place] [facility] [place] [address] ProviderDelvin MD [address] [place] [phone] Social History Tobacco Use Types Packs/Day Years [...] mL - 700 mg, IV Piggyback, Inj, [id number], infuse over 30 Minute(s), Routine Cardiovascular metoprolol [...] PRN for Pain (Severe 7-10), Routine acetaminophen-hydrocodone ([place] 10 mg-325 mg oral tablet) - 1 [...] 06:00) SBP 102 (AUG 15 09:37) 91 ([facility] 06:00) 108 ([facility] 17:21) DBP 61 (AUG 15 09:37) L 54 (AUG 15 06:00) 76 ([facility] 17:21) MAP 81 (AUG 15 09:37) 68 ([facility] 03:00) 86 ([facility] 17:21) SpO2 94 (AUG 15 06:00) L 91 ([facility] 22:00) 97 ([facility] 03:00) General: No acute distress. Eye: Extraocular [...] filedocumented in this encounter Care Teams Textile Converter Relationship Specialty Start Date End Date Reji Castro MD [address] [place] [id number] PCP - General Adolescent Medicine 10/02/22 documented as of this encounter
--- OUTSIDE RECORDS SUMMARY | 2025-05-14 10:44 | XMS_ITS | Encounter Summary ---
Author Organization [employer] Address [address] [place] [address] Care Team Providers Care Stage Electrician Name Role Phone Reji Castro MD Primary Care Provider [phone] Encounter Details Date Type Department Care Team (Late st Contact Info) Description 08/11/2021 Transcribed Document [facility] [place] Family Medicine [address] [place] [address] ProviderDelvin MD [facility] [place] [address] Social History Tobacco Use Types Packs/Day Years [...] on filedocumented in this encounter Care Teams Stage Electrician Relationship Specialty Start Date End Date Reji Castro MD [address] [place] [id number] PCP - General Adolescent Medicine 10/02/22 documented as of this encounter
--- OUTSIDE RECORDS SUMMARY | 2025-05-14 10:44 | XMS_ITS | Encounter Summary ---
Author Organization [employer] Address [address] [place] [address] Care Team Providers Care Washerette Machine Operator Name Role Phone Reji Castro MD Primary Care Provider [phone] Encounter Details Date Type Department Care Team (Late st Contact Info) Description 08/26/2021 Transcribed Document [facility] [place] Family Medicine [address] [place] [address] ProviderDelvin MD [address] [place] [address] Social History Tobacco Use Types Packs/Day Years Used Date Smoking Tobacco: Never Assessed Comments Unknown Sex and Gender Information Value Date Recorded Sex Assigned at Not on file Legal Sex Female 4:32 PM CDT Gender Identity Not on file Sexual Orientation Not on file documented as of this encounter Miscellaneous Notes * Cerner Conversion Note - Delvin ProviderMD - 08/26/2021 2:00 AM CDT Flap Curer Details Entered On: 08/26/2021 4:16 EDT Performed [...] on filedocumented in this encounter Care Teams Washerette Machine Operator Relationship Specialty Start Date End Date Reji Castro MD [address] [place] [id number] PCP - General Adolescent Medicine 10/02/22 documented as of this encounter
--- OUTSIDE RECORDS SUMMARY | 2025-05-14 10:44 | XMS_ITS | Encounter Summary ---
Author Organization [employer] Address [address] [place] [address] Care Team Providers Care Superintendent Refuse Disposal Name Role Phone Reji Castro MD Primary Care Provider [phone] Encounter Details Date Type Department Care Team (Late st Contact Info) Description 08/11/2021 Transcribed Document [facility] [place] Family Medicine [facility] [place] [address] ProviderDelvin MD [facility] [place] [place] [address] Social History Tobacco Use Types Packs/Day Years [...] you, Noy Garrett, PharmD PGY-1 Resident Pager #[phone] documented in this encounter Plan of Treatment Not on file documented as of this encounter Visit Diagnoses Not on filedocumented in this encounter Care Teams Superintendent Refuse Disposal Relationship Specialty Start Date End Date Reji Castro MD [address] [place] [id number] PCP - General Adolescent Medicine 10/02/22 documented as of this encounter
--- OUTSIDE RECORDS SUMMARY | 2025-05-14 10:44 | XMS_ITS | Encounter Summary ---
Author Organization [employer] Address [address] [place] [address] Care Team Providers Care Information Security Architect Name Role Phone Reji Castro MD Primary Care Provider + [phone] Encounter Details Date Type Department Care Team (Late st Contact Info) Description 08/11/2021 Transcribed Document [facility] [place] [place] [address] [place] [address] ProviderDelvin MD [address] [place] [address] Social History Tobacco Use Types Packs/Day Years [...] : Low risk (0) [place] Interventions : [place] precautions for safety used MARIPOSA JACQUES RN - 08/11/2021 18:46 EDT Electronically signed by Lanny [facility] Conversion Smoke Eater Cerner at 03/09/2023 8:46 PM CDT documented in this encounter Plan of Treatment Not on file documented as of this encounter Visit Diagnoses Not on filedocumented in this encounter Care Teams Information Security Architect Relationship Specialty Start Date End Date Reji Castro MD [address] [place] [id number] PCP - General Adolescent Medicine 10/02/22 documented as of this encounter
--- OUTSIDE RECORDS SUMMARY | 2025-05-14 10:44 | XMS_ITS | Encounter Summary ---
Author Organization [employer] Address [address] [place] [address] Care Team Providers Care Email Engineer Name Role Phone Reji Castro MD Primary Care Provider [phone] Encounter Details Date Type Department Care Team (Late st Contact Info) Description 08/15/2021 Transcribed Document [facility] [place] Family Medicine [facility] [place] [address] ProviderDelvin MD [address] [place] [id number] Social History Tobacco Use Types Packs/Day Years [...] HPI: 56 y/o F presenting to [facility] with history of COPD, atrial fibrillation, CKD [...] mg, 14 mL, 128 mL/Hr, IV Piggyback, [id number]. docusate-senna: 1 Tab, Oral, BID. famotidine: 20 [...] questions. Thank you, Andrea Moraes, PharmD PGY1 Side Stitching Machine Operator Pager: [phone], [phone]. [phone] documented in this encounter Plan of Treatment Not on file documented as of this encounter Visit Diagnoses Not on filedocumented in this encounter Care Teams Email Engineer Relationship Specialty Start Date End Date Reji Castro MD [address] [place] [id number] PCP - General Adolescent Medicine 10/02/22 documented as of this encounter
--- OUTSIDE RECORDS SUMMARY | 2025-05-14 10:44 | XMS_ITS | Encounter Summary ---
Author Organization [employer] Address [address] [place] [address] Care Team Providers Care Dispatcher Maintenance Name Role Phone Reji Castro MD Primary Care Provider + [phone] Encounter Details Date Type Department Care Team (Late st Contact Info) Description 08/15/2021 Transcribed Document [facility] [place] Family Medicine [facility] [place] [address] ProviderDelvin MD [facility] [place] [address] Social History Tobacco Use Types Packs/Day Years [...] her port could not be accessed. Her gymnastics instructor aspirated fluid from the port that was evidently purulent. I have not yet been able to track down that culture. After the aspiration she developed fever to 103, severe CHEUNG, myalgias and arthralgias. She was admitted to [facility]. She was in the hospital for [...] subsequently contacted and told to report to [facility] because she had + blood cutures concerning for an infected portacath +/- PVE. I contacted the micro lab at 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 Review of Systems ROS reviewed as documented in chart Health Status Current medications: (Selected) Inpatient Medications Ordered ALPRAZolam: 0.5 mg, Oral, TID, PRN: Anxiety CeleXA: 40 mg, Oral, Daily Coumadin: 6 mg, Oral, Daily Coumadin: 7.5 mg, Oral, Daily DAPTOmycin + Sodium Chloride 0.9% intravenous solution 50 mL: 700 mg, 14 mL, 128 mL/Hr, IV Piggyback, [id number] Dextrose 50% injection: 12.5 Gram, IV Push, Q15Min, PRN: Other (See Comment) Dextrose 50% injection: 25 Gram, IV Push, Q15Min, PRN: Other (See Comment) Dextrose 50% injection: 25 Gram, IV Push, Q15Min, PRN: Other (See Comment) Dextrose 50% injection: 25 Gram, IV Push, Q15Min, PRN: Other (See Comment) Lactated Ringers Injection intravenous solution 1,000 mL: 20 mL/Hr, IntraVENous [place] 10 mg-325 mg oral tablet: 1 Tab, [...] tenderness, No swelling, No deformity. Integumentary: Warm, [place]. Neurologic: Alert, Oriented, No focal deficits. Psychiatric: [...] of paula cath Electronically signed by Lanny [facility] Conversion Tongue Carrier Cerner at 03/09/2023 8:49 PM CDT documented in this encounter Plan of Treatment Not on file documented as of this encounter Visit Diagnoses Not on filedocumented in this encounter Care Teams Dispatcher Maintenance Relationship Specialty Start Date End Date Reji Castro MD [address] [place] [address] PCP - General Adolescent Medicine 10/02/22 documented as of this encounter
--- OUTSIDE RECORDS SUMMARY | 2025-05-14 10:44 | XMS_ITS | Data Portability ---
Author Organization [facility] [place] [facility] Address [address] [facility] [address] [place] [address] Assessment No assessment recorded. Plan of Treatment Reminders Order Date Submit Date Provider Last Modified By Organization Details Last Modified Time Details Appointments None recorded. Lab glucose, fingersti ck, blood 2016 017 [facility], [address] [place] [address], [address], 7 10:48:08 hemoglobi n A1C, fingersti ck 2016 017 [facility], [address] [place] [address], [address], 7 10:48:09 glucose, fingersti ck, blood 2016 017 [facility], [address] [place] [address], [address], 7 13:30:39 hemoglobi n A1C, fingersti ck 2016 017 [facility], [address] [place] [address], [address], 7 13:30:39 lipid panel, serum 2016 017 [facility], [address] [place] [address], [address], 7 15:04:21 hepatic function panel, serum 2016 017 [facility], [address] [place], [address], 7 14:57:41 microalbu min/creat inine, mass ratio, urine 2016 017 [facility], [address] [place], [address], 7 15:42:42 Referral diabetic ophthalmo logy referral - Uncontrol led type 2 diabetes evaluate for diabetic retinopat hy 2016 017 [email or web address] Jen Ortiz MD, [address] [facility] , [address] [place] [address], [address], 7 11:05:25 Procedures None recorded. Surgeries None recorded. Imaging None recorded. Medication Orders metformin 500 mg tablet 2016 017 [facility], [address] [place], [address], 7 10:48:16 Levemir U-100 Insulin 100 unit/mL subcutane ous solution 2016 017 [facility], [address] [place], [address], 7 10:48:15 Novolin R Regular U-100 Insulin 100 unit/mL injection solution 2016 017 [facility], [address] [place], [address], 7 11:02:41 Januvia 100 mg tablet 2016 017 [facility], [address] [place], [address], 7 10:48:15 metformin 500 mg tablet 2016 017 [facility], [address] [place], [address], 7 13:30:41 Januvia 100 mg tablet 2016 017 [facility], [address] [place], [address], 7 13:30:46 Levemir U-100 Insulin 100 unit/mL subcutane ous solution 2016 017 [email or web address] [facility], [address] [place], [address], 7 10:23:03 Patient TargetsNo targets recorded. Patient Instructions Encounter Date Encounter Id Patient Instructions Last Modified By Organization Details Last Modified Time 01/12/2017 [id number] Further increase Levemir to 30 units every a.m. and 30 units every p.m. Continue metformin 500 mg Pills twice daily with meals Continue Januvia 100 mg Dietary carbohydrate consistency and restriction and not to exceed 45 g of carbohydrate per meal and 15-30 g per snack if needed. Fasting labs today [email or web address] Not available 01/12/2017 13:30:29 05/20/2017 [id number] Further increase Levemir to 60 units every [...] finge rstic k HbA1c% 9.8 Not Available [facility] [address] [place], [address], 05/20/2017 10:29:00 05/20/20 17 05/20/2017 hemog lobin A1C, finge rstic k [employer] Recomm ended Ranges Not Available [facility] [address] [place] [address], [address], 05/20/2017 10:29:00 05/20/20 17 05/20/2017 hemog lobin A1C, finge rstic k Normal 4.3 - 5.7 Not Available [facility] [address] [place] [address], [address], 05/20/2017 10:29:00 05/20/20 17 05/20/2017 hemog lobin A1C, finge rstic k Increased Risk 5.7 - 6.4 Not Available [facility] [address] [place] [address], [address], 05/20/2017 10:29:00 05/20/20 17 05/20/2017 hemog lobin A1C, finge rstic k Diabetic > 6.5 Not Available [facility] [address] [place] [address], [address], 05/20/2017 10:29:00 05/20/20 17 05/20/2017 gluco se, finge rstic k, blood glucose, fingerstick 215 mg/dL 70 - 100 Not Available [facility] [address] [place] [address], [address], 05/20/2017 10:28:39 01/12/20 17 01/12/2017 hemog lobin A1C, finge rstic k HbA1c% 7.7 Not Available [facility] [address] [place] [address], [address], 01/12/2017 13:17:20 01/12/20 17 01/12/2017 hemog lobin A1C, finge rstic k [employer] Recomm ended Ranges Not Available [facility] [address] [place], [address], 01/12/2017 13:17:20 01/12/20 17 01/12/2017 hemog lobin A1C, finge rstic k Normal 4.3 - 5.7 Not Available [facility] [address] [place], [address], 01/12/2017 13:17:20 01/12/20 17 01/12/2017 hemog lobin A1C, finge rstic k Increased Risk 5.7 - 6.4 Not Available [facility] [address] [place] [address], [address], 01/12/2017 13:17:20 01/12/20 17 01/12/2017 hemog lobin A1C, finge rstic k Diabetic > 6.5 Not Available [facility] [address] [place] [address], [address], 01/12/2017 13:17:20 01/12/20 17 01/12/2017 gluco se, finge rstic k, blood glucose, fingerstick 211 mg/dL 70 - 100 Not Available [facility] [address] [place] [address], [address], 01/12/2017 13:17:00 01/12/20 17 01/12/2017 hepat ic funct ion panel , serum AST 43 U/L 0-32 high Not Available [facility] [address] [place] [address], [address], 01/12/2017 15:04:22 01/12/20 17 01/12/2017 hepat ic funct ion panel , serum ALT 39 U/L 0-33 high Not Available [facility] [address] [place] [address], [address], 01/12/2017 15:04:22 01/12/20 17 01/12/2017 hepat ic funct ion panel , serum alkaline phosphatase 77 U/L 35-105 normal Not Available [facility] [address] [place] [address], [address], 01/12/2017 15:04:22 01/12/20 17 01/12/2017 hepat ic funct ion panel , serum total protein 8.5 g/dL 6.4-8. 3 high Not Available [facility] [address] [place] [address], [address], 01/12/2017 15:04:22 01/12/20 17 01/12/2017 hepat ic funct ion panel , serum albumin 5.0 g/dL 3.5-5. 2 normal Not Available [facility] [address] [place] [address], [address], 01/12/2017 15:04:22 01/12/20 17 01/12/2017 hepat ic funct ion panel , serum bilirubin, total 0.6 mg/dL 0.1-1. 2 normal Not Available [facility] [address] [place] [address], [address], 01/12/2017 15:04:22 01/12/20 17 01/12/2017 hepat ic funct ion panel , serum bilirubin, direct <0.2 mg/dL 0.0-0. 3 normal Not Available [facility] [address] [place] [address], [address], 01/12/2017 15:04:22 01/12/20 17 01/12/2017 hepat ic funct ion panel , serum bilirubin, indirect - mg/dL _calc 0.0-1. 0 abnormal Unabl e to calcu late Indir ect Bilir ubin. Not Available [facility] [address] [place] [address], [address], 01/12/2017 15:04:22 01/12/20 17 01/12/2017 lipid panel , serum HDL cholesterol 33 mg/dL 66-242 low Not Available [facility] [address] [place] [address], [address], 01/12/2017 15:04:21 01/12/20 17 01/12/2017 lipid panel , serum triglyceride s 317 mg/dL 0-149 high TRIGL YCERI DE RANGE S ERIC L: < 150 BORDE RLINE HIGH: 150 - 199 HIGH: 200 - 499 VERY HIGH: > OR = 500 Not Available [facility] [address] [place] [address], [address], 01/12/2017 15:04:21 01/12/20 17 01/12/2017 lipid panel , serum cholesterol 167 mg/dL 0-199 normal DEMARCUS STERO L (TOTA L) RANGE S SENIA ABLE: < 200 BORDE RLINE : 200 - 239 HIGHE R RISK: > 239 Not Available [facility] [address] [place] [address], [address], 01/12/2017 15:04:21 01/12/20 17 01/12/2017 lipid panel , serum LDL cholesterol 71 mg/dL _calc 0-99 normal LDL DEMARCUS STERO L RANGE S OPTIM AL: < 100 NEAR/ ABOVE OPTIM AL: 100 - 129 BORDE RLINE HIGH: 130 - 159 HIGH: 160 - 189 VERY HIGH: > OR = 190 Not Available [facility] [address] [place] [address], [address], 01/12/2017 15:04:21 01/12/20 17 01/12/2017 micro album in/cr eatin ine, mass ratio , urine microalbumin , random <12 mg/L 0-19 normal Not Available [facility] [address] [place] [address], [address], 01/12/2017 15:42:42 01/12/20 17 01/12/2017 micro album in/cr eatin ine, mass ratio , urine creatinine,u r,random 18.24 mg/dL normal NO ERIC L RANGE ESTAB LISHE D FOR RANDO M URINE . Not Available [facility] [address] [place] [address], [address], 01/12/2017 15:42:42 01/12/20 17 01/12/2017 micro album [...] pplem ent 1,s24 -s27, 1996. Not Available [facility] [address] [facility], [place], [address], 01/12/2017 15:42:42 03/10/20 24 03/10/2024 XR, shoul sheldon, 2 or more view [place]a [place] [facility] [address] [address] Patirichard t Name: IRINA hall : [phone] [...] ly Signed By: Genevieve gonzales MD on 11:27 AM [email or web address] [facility] [place] [address] , [place], [address], 03/13/2024 12:32:32 03/10/20 24 03/10/2024 XR, elbow , 2 view [facility] [address] [address] Patirichard t Name: IRINA hall : [phone] Patirichard t Orderi ng Provid er: [facility] EXAM DATE: 2023 EXAM: XR RT ELBOW, [...] Genevieve gonzales MD on 11:28 AM [email or web address] [facility] [place] [address] , [place], [address], 03/13/2024 12:32:33 03/10/20 24 03/10/2024 [facility]R, [facility] , [facility] [address] [address] Patien t Name: IRINA Scott t : 89 Patien t Orderi ng Provid [...] Interp reted By: Genevieve gonzales MD Electr on ly Signed By: Genevieve gonzales MD on 024 11:28 AM [email or web address] [facility] [place] [address] , [place], [address], 03/13/2024 12:32:33 Result Notes Documentation Provider Name and Address Organization Details Recorded Time Xr, Shoulder, 2 Or More View : [facility] [place] [address] [place] [address] Patient Name: IRINA TAMAYO Patient : 1965 Patient Ordering Provider: TOMMIE DA SILVA EXAM DATE: 03/10/2024 EXAM: XR RT SHOULDER COMPLETE RADIOGRAPHIC VIEWS: 3 COMPARISON: None. HISTORY: Right shoulder pain. FINDINGS: The bones of the shoulder are normal in alignment. There is no evidence of fracture. There is mild degenerative changes at the acromioclavicular joint and along the glenohumeral joint. The acromioclavicular and coracoclavicular spacing is normal. The visualized right ribs and right lung appears normal. An intravenous port projects over the right chest wall and extends along the course of the right jugular vein and SVC. IMPRESSION: 1. There are mild degenerative changes in the right shoulder. Interpreted By: Urbano Baeza MD IE DA SILVA PA-C [address] [place], [address], [facility] 03/13/2024 12:32:32 Xr, Elbow, 2 View : [facility] [address] [place] [address] Patient Name: IRINA TAMAYO Patient : 1965 Patient Ordering Provider: TOMMIE DA SILVA EXAM DATE: 03/10/2024 EXAM: XR RT ELBOW, AP/LAT HISTORY: Right elbow pain COMPARISON: None. FINDINGS: The bones of the right elbow are normal in alignment. There is no evidence of fracture. There are mild degenerative changes. There is mild marginal spurring. IMPRESSION: 1. There are mild degenerative changes in the right elbow. Interpreted By: Urbano Baeza MD IE DA SILVA PA-C [address] [place], [address], [facility] 03/13/2024 12:32:33 Xr, Wrist, 2 View : [facility] [address] [place] [address] Patient Name: IRINA TAMAYO Patient : 1965 Patient Ordering Provider: TOMMIE DA SILVA EXAM DATE: 03/10/2024 EXAM: XR RT WRIST, AP/LAT HISTORY: Right wrist pain COMPARISON: None. FINDINGS: The bones of the right wrist are normal in alignment. There is no evidence of fracture. There are mild degenerative changes. There is mild marginal spurring the first carpometacarpal joint, triscaphe joint and radiocarpal joint. IMPRESSION: 1. There are mild degenerative changes in the right wrist. Interpreted By: Urbano Baeza MD IE DA SILVA PA-C [address] [place], [address], [facility] 03/13/2024 12:32:33 Problems Name Problem SNOMED Code Status Onset Date Resolution Date Notes Provider Name and Address Organization Details Recorded Time Uncontro lled type 2 diabetes mellitus 242116067 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 105275124 Completed 201501/21/2017 From Automate d Load;Pro vider: Uli Fox;Sta tus: Active JEN ORTIZ MD [address] [place] [address], [phone] [place] [address] 7 13:20:24 Disorder of nervous system due to type 2 diabetes mellitus 583153237 Active 2015 From Automate d Load;Pro vider: Donna Rendon;St atus: Active Not Available [facility] 6 08:01:51 Hypothyr oidism 66112457 Active 2015 From Automate d Load;Pro vider: Donna Rendon;St atus: Active Not Available [facility] 6 08:01:51 Hyperlip idemia 91576228 Active 2015 From Automate d Load;Pro vider: Donna Rendon;St atus: Active Not Available [facility] 6 08:01:51 Problem Notes None recorded. Procedures Surgical History Date Name Laterality Status Provider Name and Address Organization Details Recorded Time Cardiac Surgery completed [facility] 01/12/2017 13:15:08 Hernia repair w/mesh completed [facility] 01/12/2017 13:15:15 Magneto Repairer Surgery completed [facility] 01/12/2017 13:15:56 Imaging Results None recorded. Procedure Notes None recorded. Medical Equipment None Reported. Allergies Allergen ID Allergen Name Allergen Category Reaction Reaction Severity Criticality Documentation Date Start Date Code Code System Note Provider Name and Address Organization Details Recorded Time 573025 codeine medicatio n other Not available Not available 10/16/20162013 2670 RxNorm React ion: OTHER ; Comme nt: Heada junior;C reate d By: Charles barrera;Cr eated Date: 2013 2:31: 40 PM; Not Available [facility] 6 03:13:58 909942 Rocephin medicatio n Not available Not available Not available 10/16/20162013 9449 RxNorm Comme nt: Creat ed By: Charles barrera;Cr eated Date: 2013 2:32: 27 PM; Not Available [facility] 6 03:13:58 596707 Buprenex medicatio n vomiting Not available Not available 10/16/20162013 48396 0 RxNorm React ion: VOMIT ING; Comme nt: Creat ed By: Charles barrera;Cr eated Date: 2013 2:30: 33 PM; Not Available [facility] 6 05:59:46 498320 Levaquin medicatio n Not available Not available Not available 10/16/20162013 52306 2 RxNorm Comme nt: INR;C reate d By: Charles barrera;Cr eated Date: 2013 2:32: 11 PM; Not Available [facility] 6 09:05:33 Medications Name Sig Start Date [...] Address Organization Details Last Updated DateTime 7 20960.3 g 162.56 cm 29.4 kg/m2 92 /min 122 mm[Hg] 62 mm[Hg] [facility] 7 13:11:05 Date Recorded Body height Provider Name an d Address Organization Details Last Updated DateTime 01/21/2017 162.56 cm [facility] 01/21/2017 12:52:09 Date Recorded Body height Body mass index (BMI) Body weight Heart rate Systolic blood pressure Diastolic blood pressure Provider Name and Address Organization Details Last Updated DateTime 7 162.56 cm 30.2 kg/m2 65814.2 6 g 71 /min 100 mm[Hg] 68 mm[Hg] [facility] 7 10:22:26 Social History None recorded. Functional Status None recorded. Mental Status None recorded. Family History Relationship Description Onset Age of this Age Resolved Age Notes LastModified by Organization Details LastModified Time Mother Cataract [email or web address] Not availab le 01/21/2017 12:54:54 Mother Diabetes mellitus Not available 01/21 12:55:12 Mother Lazy eye Not availab le 01/21/2017 12:55:30 Father Cataract [email or web address] Not availab le 01/21/2017 12:54:54 Father Diabetes mellitus [email or web address] Not available 01/21 12:55:12 Brother Diabetes mellitus [email or web address] Not available 01/21 12:55:12 Brother Lazy eye [email or web address] Not availa ble 01/21/2017 12:55:30 Brother Legal blindness [email or web address] Not available 01/21 12:55:38 Sister Diabetes mellitus [email or web address] Not available 01/21 12:55:12 Sister Lazy eye [email or web address] Not availab le 01/21/2017 12:55:30 Medical History Condition Response Diabetes Y Heart Problems Y Hypertension Y Lazy Eye Y Gynecological HistoryNo gynecological history recorded. Obstetrics History GPAL:G 0 P 0 0 0 0 Past Encounters Encounter ID Performer Location Encounter Start Date Encounter Closed Date Diagnosis/Indication Diagnosis SNOMED-CT Code Diagnosis ICD10 Code Diagnosis Note [id number] DONNA RENDON MD [facility] [address] [place] [address] 01/12/2017 12:52:33 01/15/2017 11:05:25 Uncontrolled type 2 diabetes mellitus 743919500 E11.65 A1c in the office today elevated [...] 0.84 GFR of 80 Referral to ophthalmol og for diabetic dilated eye exam.Fasti ng lipid profile, liver function test and urinary ACR today [id number] JEN ORTIZ MD OPHTHALMO [facility] [address] [place] [address] 01/21/2017 12:38:42 01/22/2017 08:17:23 Uncontrolled type 2 diabetes mellitus 372273702 E11.65 I discussed diabetes with this patient. I discussed the importance of sugar control for reducing risk of diabetic complicati ons in the eyes. I recommened they follow up with their PCP/endocr inologist for continue surgar evaluation /managemen t. Also discussed importance of cardiovasc ular risk reduction. Call with changing/f luxuating vision. Amblyopia 145189102 H53. 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 [id number] TOMMIE DA SILVA PA-C [facility] [address] [place] [address] 03/10/2024 10:43:50 03/10/2024 12:53:46 Carpal tunnel syndrome of right wrist 6605678943 49307 G56.01 Assessment : Adhesive capsulitis of the [...] use. Adhesive c apsulitis of right shoulder 9327122890 46520 M75.01 Health Concerns Section Related Observation LastModified by Organization Detai ls LastModified Time None Recorded Concern Status LastModified by Organization Details LastModified Time None Recorded Advance Directives Directive None Recorded Payers Insurance Date Sequence Insurance Name Policy Number Policy Edwards Covered Member ID Edwards Member ID Guarantor Name 06/01/2024 1 [place]MEDICARE REPLACEMENT HMO) [id number] Irina Tamayo [id number] Irina Tamayo 06/02/2024 2 [facility] - FFS/TRADITIONA L Irina Tamayo [id number] Irina Tamayo 01/26/2019 1 *SELF PAY* Geovanna Tamayo 03/10/2024 1 [place] Irina Tamayo [id number] Irina Tamayo Notes Date Note Type Note Provider Name [...] review: no Hypoglycemia: none DONNA RENDON MD [address] [place] [address], [address], [facility] 01/12/2017 13:35:43 01/21/2017 text/html dec vision odno slltos has not changeds in a long time.reviewed diabetic labs. JEN ORTIZ MD [address] [place] [address], [address], [facility] 01/21/2017 14:06:12 05/20/2017 text/html 51-year-old female patient [...] review: no Hypoglycemia: none DONNA RENDON MD [address] [place] [address], [address], [facility] 05/20/2017 10:48:20 03/10/2024 text/html HAND DOMINANCE: LeftWHAT: [...] LCMRI:PT: noINJECTION: no TOMMIE DA SILVA PA-C [address] [place], [address], [facility] 2024 15:42:34 OBGyn Episode No OBEpisode recorded.
--- OUTSIDE RECORDS SUMMARY | 2025-05-14 10:44 | XMS_ITS | Encounter Summary ---
Author Organization [employer] Address [address] [place] [address] Care Team Providers Care Prosthetist Name Role Phone Reji Castro MD Primary Care Provider [phone] Encounter Details Date Type Department Care Team (Late st Contact Info) Description 08/15/2021 Transcribed Document [facility] Family Medicine [facility] [place] [address] ProviderDelvin MD [address] [place] [address] Social History Tobacco Use Types Packs/Day Years [...] 08/15/2021 18:10 EDT Electronically signed by L[facility] Conversion General Maintenance Technician Cerner at 03/09/2023 8:38 PM CDT documented in this encounter Plan of Treatment Not on file documented as of this encounter Visit Diagnoses Not on filedocumented in this encounter Care Teams Prosthetist Relationship Specialty Start Date End Date Reji Castro MD [address] [place] [address] [place] [address] PCP - General Adolescent Medicine 10/02/22 documented as of this encounter
--- OUTSIDE RECORDS SUMMARY | 2025-05-14 10:44 | XMS_ITS | Encounter Summary ---
Author Organization [facility] Address [address] [place] [address] Care Team Providers Care Bench Repair Technician Name Role Phone Reji Castro MD Primary Care Provider [phone] Encounter Details Date Type Department Care Team (Late st Contact Info) Description 08/11/2021 Transcribed Document [facility] [place] [address] [place] [address] ProviderDelvin MD [address] [place] [address] Social History Tobacco Use Types Packs/Day Years [...] : 3 - Urgent Tracking Group : [facility] ED MICHAEL NAM RN - 08/11/2021 [...] 08/11/2021 16:25:12 EDT) Problems(Active) Amblyopia (SNOMED CT :4743262823 ) Name of Problem: Amblyopia ; Recorder: Whitney Razo RN; Confirmation: Confirmed ; Classification: Patient Stated ; Code: [id number] ; Contributor System: PowerChart ; Last Updated: 05/03/2014 19:25 EDT ; Life Cycle Date: 12/02/2013 ; Life Cycle Status: Active ; Vocabulary: SNOMED CT ; Comments: 12/02/2013 0:50 - Whitney Razo RN lazy eye blindness (left eye) Arthritis (SNOMED CT :5127446 ) Name of Problem: Arthritis ; Recorder: Whitney Razo RN; Confirmation: Confirmed ; Classification: Patient Stated ; Code: [id number] ; Contributor System: PowerChart ; Last Updated: 05/03/2014 19:25 EDT ; Life Cycle Date: 12/02/2013 ; Life Cycle Status: Active ; Vocabulary: SNOMED CT Atrial fibrillation (SNOMED CT :32642795 ) Name of Problem: Atrial fibrillation ; Recorder: Whitney Razo RN; Confirmation: Confirmed ; Classification: Patient Stated ; Code: 03731257 ; Contributor System: PowerChart ; Last Updated: 05/03/2014 19:25 EDT ; Life Cycle Date: 12/02/2013 ; Life Cycle Status: Active ; Vocabulary: SNOMED CT Back pain (PNED :[id number] ) Name of Problem: Back pain ; Recorder: Whitney Razo RN; Confirmation: Confirmed ; Classification: Patient Stated ; Code: [id number] ; Contributor System: PowerChart ; Last Updated: 05/07/2014 9:11 EDT ; Life Cycle Date: 12/02/2013 ; Life Cycle Status: Active ; Vocabulary: PNED Bowel obstruction (SNOMED CT :681323729 ) Name of Problem: Bowel obstruction ; Recorder: Whitney Razo RN; Confirmation: Confirmed ; Classification: Patient Stated ; Code: 461552342 ; Contributor System: PowerChart ; Last Updated: 05/03/2014 19:25 EDT ; Life Cycle Date: 12/02/2013 ; Life Cycle Status: Active ; Vocabulary: SNOMED CT Bronchitis (SNOMED CT :08259406 ) Name of Problem: Bronchitis ; Recorder: Whitney Razo RN; Confirmation: Confirmed ; Classification: Patient Stated ; Code: 62444371 ; Contributor System: PowerChart ; Last Updated: 05/03/2014 19:25 EDT ; Life Cycle Date: 12/02/2013 ; Life Cycle Status: Active ; Vocabulary: SNOMED CT Cardiac arrhythmia (SNOMED CT :6663049557 ) Name of Problem: Cardiac arrhythmia ; Recorder: Whitney Razo RN; Confirmation: Confirmed ; Classification: Patient Stated ; Code: 4533126465 ; Contributor System: PowerChart ; Last Updated: 05/03/2014 19:25 EDT ; Life Cycle Date: 12/02/2013 ; Life Cycle Status: Active ; Vocabulary: SNOMED CT Cardiomyopathy (SNOMED CT :066933525 ) Name of Problem: Cardiomyopathy ; Recorder: Whitney Razo RN; Confirmation: Confirmed ; Classification: Patient Stated ; Code: 783555932 ; Contributor System: PowerChart ; Last Updated: 05/03/2014 19:25 EDT ; Life Cycle Date: 12/02/2013 ; Life Cycle Status: Active ; Vocabulary: SNOMED CT COPD (SNOMED CT :02073269 ) Name of Problem: COPD ; Recorder: Whitney Razo RN; Confirmation: Confirmed ; Classification: Patient Stated ; Code: 81067254 ; Contributor System: PowerChart ; Last Updated: 05/07/2014 9:10 EDT ; Life Cycle Date: 12/02/2013 ; Life Cycle Status: Active ; Vocabulary: SNOMED CT Diabetes mellitus (SNOMED CT :623396740 ) Name of Problem: Diabetes mellitus ; Recorder: Whitney Razo RN; Confirmation: Confirmed ; Classification: Patient Stated ; Code: 303695134 ; Contributor System: PowerChart ; Last Updated: 05/03/2014 19:25 EDT ; Life Cycle Date: 12/02/2013 ; Life Cycle Status: Active ; Vocabulary: SNOMED CT Diabetes mellitus type II (SNOMED CT :99598957 ) Name of Problem: Diabetes mellitus type II ; Recorder: Whitney Razo RN; Confirmation: Confirmed ; Classification: Patient Stated ; Code: 63936575 ; Contributor System: PowerChart ; Last Updated: 05/07/2014 9:12 EDT ; Life Cycle Date: 12/02/2013 ; Life Cycle Status: Active ; Vocabulary: SNOMED CT Diverticulosis (SNOMED CT :4573277083 ) Name of Problem: Diverticulosis ; Recorder: Whitney Razo RN; Confirmation: Confirmed ; Classification: Patient Stated ; Code: 7660421287 ; Contributor System: PowerChart ; Last Updated: 05/03/2014 19:25 EDT ; Life Cycle Date: 12/02/2013 ; Life Cycle Status: Active ; Vocabulary: SNOMED CT Edema (SNOMED CT :039466603 ) Name of Problem: Edema ; Recorder: Whitney Razo RN; Confirmation: Confirmed ; Classification: Patient Stated ; Code: 721467255 ; Contributor System: PowerChart ; Last Updated: 05/03/2014 19:25 EDT ; Life Cycle Date: 12/02/2013 ; Life Cycle Status: Active ; Vocabulary: SNOMED CT ; Comments: 12/02/2013 1:45 - Whitney Razo RN BLE Fibromyalgia (SNOMED CT :89157756 ) Name of Problem: Fibromyalgia ; Recorder: Whitney Razo RN; Confirmation: Confirmed ; Classification: Patient Stated ; Code: 25656928 ; Contributor System: PowerChart ; Last Updated: [...] GERD - Gastro-esophageal reflux disease (SNOMED CT :5980327050 ) Name of Problem: GERD - Gastro-esophageal reflux disease ; Recorder: Whitney Razo RN; Confirmation: Confirmed ; Classification: Patient Stated ; Code: 1331967883 ; Contributor System: PowerChart ; Last Updated: 05/07/2014 9:09 EDT ; Life Cycle Date: 12/02/2013 ; Life Cycle Status: Active ; Vocabulary: SNOMED CT Heart failure (SNOMED CT :356560278 ) Name of Problem: Heart failure ; Recorder: Whitney Razo RN; Confirmation: Confirmed ; Classification: Patient Stated ; Code: 431362236 ; Contributor System: PowerChart ; Last Updated: 05/03/2014 19:25 EDT ; Life Cycle Date: 12/02/2013 ; Life Cycle Status: Active ; Vocabulary: SNOMED CT Heart valve (SNOMED CT :905082482 ) Name of Problem: Heart valve ; Recorder: Whitney Razo RN; Confirmation: Confirmed ; Classification: Patient Stated ; Code: 168021059 ; Contributor System: PowerChart ; Last Updated: 05/07/2014 9:14 EDT ; Life Cycle Date: 12/02/2013 ; Life Cycle Status: Active ; Vocabulary: SNOMED CT Hepatomegaly (SNOMED CT :123332035 ) Name of Problem: Hepatomegaly ; Recorder: Whitney Razo RN; Confirmation: Confirmed ; Classification: Patient Stated ; Code: 466788570 ; Contributor System: PowerChart ; Last Updated: 05/03/2014 19:25 EDT ; Life Cycle Date: 12/02/2013 ; Life Cycle Status: Active ; Vocabulary: SNOMED CT High blood pressure (SNOMED CT :51382077 ) Name of Problem: High blood pressure ; Recorder: Whitney Razo RN; Confirmation: Confirmed ; Classification: Patient Stated ; Code: 63767078 ; Contributor System: PowerChart ; Last Updated: 05/03/2014 19:25 EDT ; Life Cycle Date: 12/02/2013 ; Life Cycle Status: Active ; Vocabulary: SNOMED CT Hyperlipidemia (SNOMED CT :07596305 ) Name of Problem: Hyperlipidemia ; Recorder: Whitney Razo RN; Confirmation: Confirmed ; Classification: Patient Stated ; Code: 38000279 ; Contributor System: PowerChart ; Last Updated: 05/03/2014 19:25 EDT ; Life Cycle Date: 12/02/2013 ; Life Cycle Status: Active ; Vocabulary: SNOMED CT Lazy eye (SNOMED CT :616198246 ) Name of Problem: Lazy eye ; Recorder: Whitney Razo RN; Confirmation: Confirmed ; Classification: Patient Stated ; Code: 718189842 ; Contributor System: PowerChart ; Last Updated: 05/03/2014 19:25 EDT ; Life Cycle Date: 12/02/2013 ; Life Cycle Status: Active ; Vocabulary: SNOMED CT ; Comments: 12/02/2013 0:49 - Whitney Razo RN lazy eye blindness (left eye) Myocardial infarction (SNOMED CT :91762966 ) Name of Problem: Myocardial infarction ; Recorder: Whitney Razo RN; Confirmation: Confirmed ; Classification: Patient Stated ; Code: 53947447 ; Contributor System: PowerChart ; Last Updated: [...] Cycle Status: Active Ovarian cyst (SNOMED CT :959183444 ) Name of Problem: Ovarian cyst ; Recorder: Whitney Razo RN; Confirmation: Confirmed ; Classification: Patient Stated ; Code: 541164942 ; Contributor System: PowerChart ; Last Updated: 05/03/2014 19:25 EDT ; Life Cycle Date: 12/02/2013 ; Life Cycle Status: Active ; Vocabulary: SNOMED CT Renal calculus (SNOMED CT :841154288 ) Name of Problem: Renal calculus ; Recorder: Whitney Razo RN; Confirmation: Confirmed ; Classification: Patient Stated ; Code: 224431006 ; Contributor System: PowerChart ; Last Updated: 05/03/2014 19:25 EDT ; Life Cycle Date: 12/02/2013 ; Life Cycle Status: Active ; Vocabulary: SNOMED CT Restless legs syndrome (SNOMED CT :81990515 ) Name of Problem: Restless legs syndrome ; Recorder: Whitney Razo RN; Confirmation: Confirmed ; Classification: Patient Stated ; Code: 19043476 ; Contributor System: PowerChart ; Last Updated: 05/03/2014 19:25 EDT ; Life Cycle Date: 12/02/2013 ; Life Cycle Status: Active ; Vocabulary: SNOMED CT Thyroid disease (SNOMED CT :161740724 ) Name of Problem: Thyroid disease ; Recorder: Whitney Razo RN; Confirmation: Confirmed ; Classification: Patient Stated ; Code: 970932784 ; Contributor System: PowerChart ; Last Updated: 05/03/2014 19:25 EDT ; Life Cycle Date: 12/02/2013 ; Life Cycle Status: Active ; Vocabulary: SNOMED CT Diagnoses(Active) Medical screening exam Date: 08/11/2021 ; Diagnosis Type: Reason For Visit ; Confirmation: Complaint of ; Clinical Dx: Medical screening exam ; Classification: Medical ; Clinical Service: Emergency medicine ; Code: PNED ; Probability: 0 ; Diagnosis Code: [id number] ED Height and Weight Height Source : Stated Height Entry Format : [place] Height, Feet : 5 ft(Converted to: 152 cm, 60 Inch) Height, Inches : 4 Inch(Converted to: 0 ft 4 Inch, 10.16 cm) Clinical Height : 162.56 cm Weight Source, ED : Critical estimated dosing weight Weight Entry Format : [place] Weight, Pounds : 190 lb Clinical Dosing Weight : 86.36 kg Body Surface Area (BSA) : 1.92 m2 Body Mass Index : 32.7 kg/m2 (HI) [place] Body Weight (IBW) : 54.3 kg MICHAEL NAM RN - 08/11/2021 16:19 EDT documented in this encounter Plan of Treatment Not on file documented as of this encounter Visit Diagnoses Not on filedocumented in this encounter Care Teams Bench Repair Technician Relationship Specialty Start Date End Date Reji Castro MD [address] [place] [address] PCP - General Adolescent Medicine 10/02/22 documented as of this encounter
--- OUTSIDE RECORDS SUMMARY | 2025-05-14 10:44 | XMS_ITS | Encounter Summary ---
Author Organization [employer] [facility] Address [address] [place] [address] Care Team Providers Care Transactional Paralegal Name Role Phone Reji Castro MD Primary Care Provider [phone] Encounter Details Date Type Department Care Team (Late st Contact Info) Description 08/15/2021 Transcribed Document [facility] [place] [facility] [place] [address] ProviderDelvin MD [address] [place] [address] Social History Tobacco Use Types Packs/Day Years [...] Hold home meds SSI #Depression Celexa #Pain [place] 10 mg every 6 hours as needed [...] levothyroxine, 25 mcg= 1 Tab, Oral, Daily [place] 10 mg-325 mg oral tablet, 1 Tab, [...] # 0.58 x10(3)/uL (Low) 08/14/2021 16:02 EDT [place] % 7.1 % 08/15/2021 03:42 EDT [place] % 7.9 % 08/14/2021 16:02 EDT [place] # 0.50 K/uL 08/15/2021 03:42 EDT [place] # 0.53 K/uL 08/14/2021 16:02 EDT Eos [...] (Low) 08/14/2021 16:02 EDT Electronically signed by [facility], [facility] Conversion Ui Developer Designer Cerner at 03/09/2023 8:47 PM CDT documented in this encounter Plan of Treatment Not on file documented as of this encounter Visit Diagnoses Not on filedocumented in this encounter Care Teams Transactional Paralegal Relationship Specialty Start Date End Date Reji Castro MD [address] [place] [id number] PCP - General Adolescent Medicine 10/02/22 documented as of this encounter
--- OUTSIDE RECORDS SUMMARY | 2025-05-14 10:45 | XMS_ITS | Encounter Summary ---
Author Organization [employer] [facility] Address [address] [place] [address] Care Team Providers Care Hollow Handle Knife Assembler Name Role Phone Reji Castro MD Primary Care Provider [phone] Encounter Details Date Type Department Care Team (Late st Contact Info) Description 08/26/2021 Transcribed Document [facility] [place] Medicine [address] [place] [address] ProviderDelvin MD [address] [place] [address] Social History Tobacco Use Types Packs/Day Years [...] cefTRIAXone: 2 Gram, 100 mL/Hr, IV Piggyback, [id number] diphenhydrAMINE: 25 mg, Oral, Q6H, PRN: Itching [...] Oral, BID cefTRIAXone 2 Gram, IV Piggyback, [id number] citalopram 20 mg tab 40 mg 2 [...] Bioprosthetic mitral valve replacement / SNOMED CT 894805090 / Confirmed Chronic kidney disease / SNOMED CT 3452297172 / Confirmed COPD - Chronic obstructive pulmonary disease / SNOMED CT 727786460 / Confirmed History of obstructive sleep apnea / IMO 76369059 / Confirmed HLD - Hyperlipidemia / SNOMED CT 328822374 / Confirmed HTN - Hypertension / SNOMED CT 3417899126 / Confirmed Canceled: Atrial fibrillation / SNOMED CT 76432274, Active Problems (25) AIHA (autoimmune hemolytic anemia) [...] 29.0 \ Radiology Results (Last 48 hours) [id number] -- 08/11/2021 21:21 CR Chest 1 Vw [...] Hold home meds SSI Depression Celexa Pain [place] 10 mg every 6 hours as needed CODE STATUS. Full code Dispo: H/H stable, neg trops, clinically better need therapeutic inr for discharge, pharm managing. hopefully in am Time spent 26 minutes documented in this encounter Plan of Treatment Not on file documented as of this encounter Visit Diagnoses Not on filedocumented in this encounter Care Teams Hollow Handle Knife Assembler Relationship Specialty Start Date End Date Reji Castro MD [address] [place] [address] PCP - General Adolescent Medicine 10/02/22 documented as of this encounter
--- OUTSIDE RECORDS SUMMARY | 2025-05-14 10:45 | XMS_ITS | Encounter Summary ---
Author Organization [employer] [facility] Address [address] [place] [address] Care Team Providers Care Oceanographer Assistant Name Role Phone Reji Castro MD Primary Care Provider [phone] Encounter Details Date Type Department Care Team (Late st Contact Info) Description 08/17/2021 Transcribed Document [facility] [place] [facility] [place] [address] ProviderDelvin MD [facility] [place], [place] [address] Social History Tobacco Use Types Packs/Day Years Used Date Smoking Tobacco: Never Assessed Comments Unknown Sex and Gender Information Value Date Recorded Sex Assigned at Not on file Legal Sex Female 4:32 PM CDT Gender Identity Not on file Sexual Orientation Not on file documented as of this encounter Miscellaneous Notes * Cerner Conversion Note - Delvin ProviderMD - 08/17/2021 2:00 AM CDT Custom Dressmaker Details Entered On: 08/17/2021 1:07 EDT Performed On: 08/17/2021 2:00 EDT by Phyllis Qurios Lpn Order Details Transport Mode Order Detail [...] on filedocumented in this encounter Care Teams Oceanographer Assistant Relationship Specialty Start Date End Date Reji Castro MD [address] [place] [address] PCP - General Adolescent Medicine 10/02/22 documented as of this encounter
--- OUTSIDE RECORDS SUMMARY | 2025-05-14 10:45 | XMS_ITS | Encounter Summary ---
Author Organization [employer] In [facility] Address [address] [place] [address] Care Team Providers Care Core Sucker Name Role Phone Reji Castro MD Primary Care Provider [phone] Encounter Details Date Type Department Care Team (Late st Contact Info) Description 08/12/2021 Transcribed Document [facility] [place] [address] ProviderDelvin MD [address] [place] [address] Social History Tobacco Use Types Packs/Day Years [...] difficulty recalling timeline of events. Discharged from [facility] approximately 3 weeks ago after [...] While patient is in bed, Continuous Order (REIJ GUERRA) Medications acetaminophen, 650 mg= 2 Tab, [...] mmol/L (Low) 08/11/2021 17:59 EDT Sodium Ur [place] 29 mMole/Liter 08/12/2021 03:40 EDT Troponin I [...] # 0.76 K/uL (Low) 08/11/2021 17:59 EDT [place] % 9.5 % 08/12/2021 00:22 EDT [place] % 8.9 % 08/11/2021 17:59 EDT [place] # 0.64 K/uL 08/12/2021 00:22 EDT [place] # 0.61 K/uL 08/11/2021 17:59 EDT Eos [...] Appearance CLEAR2 08/11/2021 17:59 EDT Urine Specific [place] 1.007 08/11/2021 17:59 EDT Urine pH Dipstick [...] Negative2 08/11/2021 19:38 EDT Electronically signed by [facility] Conversion Ip Attorney Cerner at 03/09/2023 9:01 PM CDT documented in this encounter Plan of Treatment Not on file documented as of this encounter Visit Diagnoses Not on filedocumented in this encounter Care Teams Core Sucker Relationship Specialty Start Date End Date Reji Castro MD [address] [place] [address] PCP - General Adolescent Medicine 10/02/22 documented as of this encounter
--- OUTSIDE RECORDS SUMMARY | 2025-05-14 10:45 | XMS_ITS | Encounter Summary ---
Author Organization [employer] Address [address] [place] [address] Care Team Providers Care Propagator Laborer Name Role Phone Reji Castro MD Primary Care Provider [phone] Encounter Details Date Type Department Care Team (Late st Contact Info) Description 08/20/2021 Transcribed Document [facility] [place] [address] [place] [address] ProviderDelvin MD [facility] [place] [address] Social History Tobacco Use Types Packs/Day Years [...] # 0.38 x10(3)/uL (Low) 08/20/2021 07:38 EDT [place] % 7.9 % 08/20/2021 07:38 EDT [place] # 0.64 K/uL 08/20/2021 07:38 EDT Eos [...] (Critical) 08/20/2021 15:16 EDT Electronically signed by [facility], [facility] Conversion News Photographer Cerner at 03/09/2023 8:31 PM CDT documented in this encounter Plan of Treatment Not on file documented as of this encounter Visit Diagnoses Not on filedocumented in this encounter Care Teams Propagator Laborer Relationship Specialty Start Date End Date Reji Castro MD [address] [place] [address] PCP - General Adolescent Medicine 10/02/22 documented as of this encounter
--- OUTSIDE RECORDS SUMMARY | 2025-05-14 10:45 | XMS_ITS | Encounter Summary ---
Author Organization [employer] [facility] [employer] Address [address] [place] [address] Care Team Providers Care Vp Emerging Media Name Role Phone Reji Castro MD Primary Care Provider [phone] Encounter Details Date Type Department Care Team (Late st Contact Info) Description 08/17/2021 Transcribed Document [facility] Radiology [address] [place] [address] Loren Solorzano MD [address] [place] [address] [address] [id number] Social History Tobacco Use Types Packs/Day Years [...] mg, 14 mL, 128 mL/Hr, IV Piggyback, J54QCgg Dextrose 50% injection: 12.5 Gram, IV Push, [...] mL 700 mg 14 mL, IV Piggyback, N30QMve famotidine 20 mg tab 20 mg 1 [...] Bioprosthetic mitral valve replacement / SNOMED CT 201497403 / Confirmed Chronic kidney disease / SNOMED CT 4048146435 / Confirmed COPD - Chronic obstructive pulmonary disease / SNOMED CT 635361343 / Confirmed History of obstructive sleep apnea / IMO 23951151 / Confirmed HLD - Hyperlipidemia / SNOMED CT 385991534 / Confirmed HTN - Hypertension / SNOMED CT 2143758616 / Confirmed Canceled: Atrial fibrillation / SNOMED CT 58632568, Active Problems (25) AIHA (autoimmune hemolytic anemia) [...] Hold home meds SSI #Depression Celexa #Pain [place] 10 mg every 6 hours as needed [address] [place] [address] PCP - General Adolescent Medicine 10/02/22 documented as of this encounter
--- OUTSIDE RECORDS SUMMARY | 2025-05-14 10:45 | XMS_ITS | Encounter Summary ---
Author Organization [employer] Address [address] [place] [address] Care Team Providers Care Head Up Operator Name Role Phone Reji Castro MD Primary Care Provider [phone] Encounter Details Date Type Department Care Team (Late st Contact Info) Description 08/19/2021 Transcribed Document [facility] [place] [facility] [place] [address] ProviderDelvin MD [address] [place] [address] Social History Tobacco Use Types Packs/Day Years [...] Phlebosclerosis. PROCEDURE PERFORMED: Right IJ PowerPort placement. SHINGLES ROOFER HELPER: Cherri Ya. ANESTHESIA: Local MAC. FINDINGS: An 8-Kisw[place]ili single lumen PowerPort was placed using a [...] and J-wire followed by passage of the 8-Kiswahili single-lumen catheter. Once again, fluoroscopy was used [...] taken to the Recovery in stable condition. /[id number] MD DOTTIE Pollard/TONYA / DOTTIE / KENDRA /[id number] Electronically signed by [facility] Conversion Supervisor Cell Efficiency Cerner at 03/09/2023 8:44 PM CDT documented in this encounter Plan of Treatment Not on file documented as of this encounter Visit Diagnoses Not on filedocumented in this encounter Care Teams Head Up Operator Relationship Specialty Start Date End Date Reji Castro MD [address] [place] [address] PCP - General Adolescent Medicine 10/02/22 documented as of this encounter
--- OUTSIDE RECORDS SUMMARY | 2025-05-14 10:45 | XMS_ITS | Encounter Summary ---
Author Organization [employer] Address [address] [place] [address] Care Team Providers Care Plant Facilities Technician Name Role Phone Reji Castro MD Primary Care Provider [phone] Encounter Details Date Type Department Care Team (Late st Contact Info) Description 08/20/2021 Transcribed Document [facility] [place] [facility] [place] [address] ProviderDelvin MD [facility] [place] [address] Social History Tobacco Use Types Packs/Day Years Used Date Smoking Tobacco: Never Assessed Comments Unknown Sex and Gender Information Value Date Recorded Sex Assigned at Not on file Legal Sex Female 4:32 PM CDT Gender Identity Not on file Sexual Orientation Not on file documented as of this encounter Miscellaneous Notes * Cerner Conversion Note - Delvin ProviderMD - 08/20/2021 2:00 AM CDT Renewable Energy Technician Details Entered On: 08/20/2021 3:08 EDT Performed [...] [address] [place] [address] PCP - General Adolescent Medicine 10/02/22 documented as of this encounter
--- OUTSIDE RECORDS SUMMARY | 2025-05-14 10:45 | XMS_ITS | Encounter Summary ---
Author Organization [employer] Address [address] [place] [address] Care Team Providers Care Studio Associate Name Role Phone Reji Castro MD Primary Care Provider [phone] Encounter Details Date Type Department Care Team (Late st Contact Info) Description 08/19/2021 Transcribed Document [facility] [place] [facility] [place] [address] ProviderDelvin MD [facility] [place] [address] Social History Tobacco Use Types Packs/Day Years [...] # 0.34 x10(3)/uL (Low) 08/19/2021 11:06 EDT [place] % 7.3 % 08/19/2021 11:06 EDT [place] # 0.79 K/uL 08/19/2021 11:06 EDT Eos [...] (High) 08/18/2021 18:32 EDT Electronically signed by [facility], [facility] Conversion Fabrication Machine Operator Cerner at 03/09/2023 8:42 PM CDT documented in this encounter Plan of Treatment Not on file documented as of this encounter Visit Diagnoses Not on filedocumented in this encounter Care Teams Studio Associate Relationship Specialty Start Date End Date Reji Castro MD [address] [place] [address] PCP - General Adolescent Medicine 10/02/22 documented as of this encounter
--- OUTSIDE RECORDS SUMMARY | 2025-05-14 10:45 | XMS_ITS | Encounter Summary ---
Author Organization [employer] Address [address] [place] [address] Care Team Providers Care Insulation Estimator Name Role Phone Reji Castro MD Primary Care Provider [phone] Encounter Details Date Type Department Care Team (Late st Contact Info) Description 08/19/2021 Transcribed Document [facility] [place] Family Medicine [facility] [place] [address] ProviderDelvin MD [facility] [place] [address] Social History Tobacco Use Types Packs/Day Years Used Date Smoking Tobacco: Never Assessed Comments Unknown Sex and Gender Information Value Date Recorded Sex Assigned at Not on file Legal Sex Female 4:32 PM CDT Gender Identity Not on file Sexual Orientation Not on file documented as of this encounter Miscellaneous Notes * Cerner Conversion Note - Delvin ProviderMD - 08/19/2021 2:00 AM CDT Private Equity Analyst Details Entered On: 08/19/2021 3:57 EDT Performed [...] on filedocumented in this encounter Care Teams Insulation Estimator Relationship Specialty Start Date End Date Reji Castro MD [address] [place] [id number] PCP - General Adolescent Medicine 10/02/22 documented as of this encounter
--- OUTSIDE RECORDS SUMMARY | 2025-05-14 10:45 | XMS_ITS | Encounter Summary ---
Author Organization [employer] Address [address] [place] [address] Care Team Providers Care Carbonator Name Role Phone Reji Castro MD Primary Care Provider [phone] Encounter Details Date Type Department Care Team (Late st Contact Info) Description 08/14/2021 Transcribed Document [facility] [place] Family Medicine [address] [place] [address] ProviderDelvin MD [address] [place] [address] Social History Tobacco Use Types Packs/Day Years [...] Celestin MD - 08/14/2021 7:45 AM CDT [facility] Main OR Preop Summary Primary Physician: NENA PEARSON MD-[facility] Finalized Date/Time: 08/14/21 09:52:23 Pt. Name: IRINA TAMAYO/Sex: 1965 Female Med Rec #: [id number] Physician: VINCE BELLO MD Financial #: [id number] Pt. Type: I Room/Bed: 454/1 Admit/Disch: 08/11/21 21:21:00 - Institution: [facility] PreOp Case Times Entry 1 In Preop 08/14/21 06:28:00 Ready for Holding n/a Room Patient Ready for 08/14/21 06:46:00 Surgery Patient Out of Preop 08/14/21 07:32:00 Patient Out of n/a Holding Room Last Modified By: Charan Dutton Rn 08/14/21 09:52:22 [facility] PreOp Case Times Audit 08/14/21 09:52:22 Application Development Team Lead: [id number] Modifier: [id number] <+> 1 Patient Out of Preop Finalized By: Charan Dutton, Rn Document Signatures Signed By: Charan Dutton Rn 08/14/21 09:52 Electronically signed by Lanny [facility] Conversion Buggy Loader Cerner at 03/09/2023 8:46 PM CDT documented in this encounter Plan of Treatment Not on file documented as of this encounter Visit Diagnoses Not on filedocumented in this encounter Care Teams Carbonator Relationship Specialty Start Date End Date Reji Castro MD [address] [place] [id number] PCP - General Adolescent Medicine 10/02/22 documented as of this encounter
--- OUTSIDE RECORDS SUMMARY | 2025-05-14 10:45 | XMS_ITS | Encounter Summary ---
Author Organization [employer] Address [address] [place] [address] Care Team Providers Care Quoter Name Role Phone Reji Castro MD Primary Care Provider [phone] Encounter Details Date Type Department Care Team (Late st Contact Info) Description 08/11/2021 Transcribed Document [facility] [place] Family Medicine [address] [place] [address] ProviderDelvin MD [address] [place] [address] Social History Tobacco Use Types Packs/Day Years [...] on filedocumented in this encounter Care Teams Quoter Relationship Specialty Start Date End Date Reji Castro MD [address] [place] [address] PCP - General Adolescent Medicine 10/02/22 documented as of this encounter
--- OUTSIDE RECORDS SUMMARY | 2025-05-14 10:45 | XMS_ITS | Encounter Summary ---
Author Organization [employer] Address [address] [place] [address] Care Team Providers Care Lettuce Trimmer Name Role Phone Reji Castro MD Primary Care Provider + [phone] Encounter Details Date Type Department Care Team (Late st Contact Info) Description 08/19/2021 Transcribed Document [facility] [place] Family [place] [facility] [place] [address] ProviderDelvin MD [address] [place] [address] Social History Tobacco Use Types Packs/Day Years [...] on filedocumented in this encounter Care Teams Lettuce Trimmer Relationship Specialty Start Date End Date Reji Castro MD [address] [place] [address] PCP - General Adolescent Medicine 10/02/22 documented as of this encounter
--- OUTSIDE RECORDS SUMMARY | 2025-05-14 10:45 | XMS_ITS | Encounter Summary ---
Author Organization [employer] Address [address] [place] [address] Care Team Providers Care Primer Charging Tool Setter Name Role Phone Reji Castro MD Primary Care Provider [phone] Encounter Details Date Type Department Care Team (Late st Contact Info) Description 08/26/2021 Transcribed Document [facility] [place] Family Medicine [address] [place] [address] ProviderDelvin MD [address] [place] [address] Social History Tobacco Use Types Packs/Day Years [...] 08/26/2021 4:16 EDT Electronically signed by Lanny [facility] Conversion Auto Self Service Station Attendant Cerner at 03/09/2023 8:32 PM CDT documented in this encounter Plan of Treatment Not on file documented as of this encounter Visit Diagnoses Not on filedocumented in this encounter Care Teams Primer Charging Tool Setter Relationship Specialty Start Date End Date Reji Castro MD [address] [place] [address] PCP - General Adolescent Medicine 10/02/22 documented as of this encounter
--- OUTSIDE RECORDS SUMMARY | 2025-05-14 10:45 | XMS_ITS | Encounter Summary ---
Author Organization [employer] Address [address] [place] [address] Care Team Providers Care Agricultural Technical Officer Name Role Phone Reji Castro MD Primary Care Provider + [phone] Encounter Details Date Type Department Care Team (Late st Contact Info) Description 08/19/2021 Transcribed Document [facility] [place] Family Medicine [facility] [place] [address] ProviderDelvin MD [facility] [address] Social History Tobacco Use Types Packs/Day Years [...] her port could not be accessed. Her digital media associate aspirated fluid from the port that was evidently purulent. I have not yet been able to track down that culture. After the aspiration she developed fever to 103, severe CHEUNG, myalgias and arthralgias. She was admitted to [facility]. She was in the hospital for 10 [...] antibiotics. On 08/08 she presented to a [facility] after she developed severe CHEUNG and myalgias w/o prominent fever. She was subsequently contacted and told to report to [facility] because she had + blood cutures concerning for an infected portacath +/- PVE. I contacted the micro lab at 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 Integumentary: Warm, [place]. Neurologic: Alert, Oriented, No focal deficits. Psychiatric: [...] on filedocumented in this encounter Care Teams Agricultural Technical Officer Relationship Specialty Start Date End Date Reji Castro MD [address] [place] [address] PCP - General Adolescent Medicine 10/02/22 documented as of this encounter
--- OUTSIDE RECORDS SUMMARY | 2025-05-14 10:45 | XMS_ITS | Encounter Summary ---
Author Organization [employer] Address [address] [facility] [place] [address] Care Team Providers Care Novelty Candy Maker Name Role Phone Reji Castro MD Primary Care Provider + [phone] Encounter Details Date Type Department Care Team (Late st Contact Info) Description 08/25/2021 Transcribed Document [facility] [place] [address] [place] [address] ProviderDelvin MD [address] [place] [address] Social History Tobacco Use Types Packs/Day Years [...] Spiritual : 2 Referral Reason Comment : BOILER OUT in Room 454. Ministry Provided to : Patient Spiritual/Emotional Acuity : Medium Spiritual Framework : Integrated, provides strength/resource Active in a Gnosticism/[employer] [facility] : Yes Active in a Gn[facility]ism/[employer] [facility] : [facility] Sikh Preference : Voodoo Spiritual Leader Requested : No Hoahaoism Sacrament of the Sick/Anointing Needed : No Page Designer Follow-up Needed : No Rome Burgos Chaplain-Non Cert - 08/25/2021 10:13 EDT Spiritual Assessment Patient's Community/Relationship : Strength in patient's life Supportive/Healthy Relationships : Yes Supportive Sikh Community : Yes Patient's Sense of Meaning [...] : Yes Spiritual Assessment Comment/Summary Points : BOILER OUT. PT is experiencing significant chest pain. She was desirous of prayer, explaining her involvement with her Voodoo buddhist as well. One of her daugthers is a Orthopedic Surgery Nurse here at [facility]. She reported she is living in a rented house in [place] [facility] as her home in [place] [facility] [place] [facility]. Page Designer provided pastoral presence, support, and prayer. Family; two daughters, two sisters, one brother, and their families. Spirital Assessment Comment/Summary Report : SPIRITUAL ASSESSMENT COMMENT/SUMMARY No qualifying data available. Rome Burgos Chaplain-Non Cert - 08/25/2021 10:13 EDT Interventions Advance Directive Information Provided : No Emotional Support : Empathic/Engaged listening, Established trust, Feelings expressed, Hope strengths identified, Meaning strengths identified, Relationship strengths identified Spiritual and Sikh : Prayer shared Rome Burgos Chaplain-Non Cert - 08/25/2021 10:13 EDT Electronically signed by [facility] Conversion Stage Set Up Worker Cerner at 03/09/2023 8:33 PM CDT documented in this encounter Plan of Treatment Not on file documented as of this encounter Visit Diagnoses Not on filedocumented in this encounter Care Teams Novelty Candy Maker Relationship Specialty Start Date End Date Reji Castro MD [address] [place] [id number] PCP - General Adolescent Medicine 10/02/22 documented as of this encounter
--- OUTSIDE RECORDS SUMMARY | 2025-05-14 10:45 | XMS_ITS | Encounter Summary ---
Author Organization [employer] Address [address] [place] [address] Care Team Providers Care Pest Control Operator Name Role Phone Reji Castro MD Primary Care Provider [phone] Encounter Details Date Type Department Care Team (Late st Contact Info) Description 08/20/2021 Transcribed Document [facility] [place] Family Medicine [address] [place] [address] ProviderDelvin MD [address] [place] [address] Social History Tobacco Use Types Packs/Day Years [...] Genna Gonsalez RN - 08/20/2021 6:39 EDT Electronically signed by [facility] Conversion Bead Forming Machine Set Up Operator Cerner at 03/09/2023 8:38 PM CDT documented in this encounter Plan of Treatment Not on file documented as of this encounter Visit Diagnoses Not on filedocumented in this encounter Care Teams Pest Control Operator Relationship Specialty Start Date End Date Reji Castro MD [address] [place] [address] PCP - General Adolescent Medicine 10/02/22 documented as of this encounter
--- OUTSIDE RECORDS SUMMARY | 2025-05-14 10:45 | XMS_ITS | Encounter Summary ---
Author Organization [employer] Address [address] [place] [address] Care Team Providers Care Solar Installation Foreman Name Role Phone Reji Castro MD Primary Care Provider [phone] Encounter Details Date Type Department Care Team (Late st Contact Info) Description 08/14/2021 Transcribed Document [facility] [place] Family Medicine [facility] [place] [address] ProviderDelvin MD [facility] [place] [address] Social History Tobacco Use Types Packs/Day Years [...] # 0.71 x10(3)/uL (Low) 08/13/2021 23:47 EDT [place] % 10.6 % (High) 08/13/2021 23:47 EDT [place] # 0.58 K/uL 08/13/2021 23:47 EDT Eos [...] (Low) 08/13/2021 18:40 EDT Electronically signed by [facility] Conversion Hired Worker Cerner at 03/09/2023 8:31 PM CDT documented in this encounter Plan of Treatment Not on file documented as of this encounter Visit Diagnoses Not on filedocumented in this encounter Care Teams Solar Installation Foreman Relationship Specialty Start Date End Date Reji Castro MD [address] [place] [id number] PCP - General Adolescent Medicine 10/02/22 documented as of this encounter
--- OUTSIDE RECORDS SUMMARY | 2025-05-14 10:45 | XMS_ITS | Encounter Summary ---
Author Organization [employer] Address [address] [place] [address] Care Team Providers Care Project Development Engineer Name Role Phone Reji Castro MD Primary Care Provider [phone] Encounter Details Date Type Department Care Team (Late st Contact Info) Description 08/15/2021 Transcribed Document [facility] [place] Family Medicine [address] [place] [address] ProviderDelvin MD [facility] [place] [address] Social History Tobacco Use Types Packs/Day Years [...] in this encounter Care Teams Project Development Engineer Relationship Specialty Start Date End Date Reji Castro MD [address] [place] [address] PCP - General Adolescent Medicine 10/02/22 documented as of this encounter
--- OUTSIDE RECORDS SUMMARY | 2025-05-14 10:45 | XMS_ITS | Encounter Summary ---
Author Organization [employer] Address [address] [place] [address] Care Team Providers Care Radioisotope Technologist Name Role Phone Reji Castro MD Primary Care Provider [phone] Encounter Details Date Type Department Care Team (Late st Contact Info) Description 08/19/2021 Transcribed Document [facility] [place] [address] ProviderDelvin MD [address] [place] [address] Social History Tobacco Use Types Packs/Day Years [...] 15:34 EDT by MADINA LOVETT, JEREMIAH - Supplemental ManagerBlindstitch Lapel Padder Progress Note Discharge Arrangements : Patient Post-Acute [...] Rounds? : Yes MADINA LOVETT RN - Supplemental Manager - 08/19/2021 15:34 EDT Narrative Progress Note [...] will need home health and lvies in [place]. [facility] is a possibility. Historical [...] will need home health and lives in [place]. [facility] home [facility] is a possibility. CM will continue to follow. DCP: MADINA LOVETT RN - Supplemental Manager - 08/18/21 15:47:49 (late entry from 08/15-) [...] and send referrals as appropriate. JULIO STEWART RN-Supplemental Manager ED - 08/18/21 10:38:39 BONY, MADINA, RN - Supplemental Manager - 08/19/2021 15:34 EDT Electronically signed by Lanny [facility] Conversion Stock Ranch Supervisor Cerner at 03/09/2023 8:49 PM CDT documented in this encounter Plan of Treatment Not on file documented as of this encounter Visit Diagnoses Not on filedocumented in this encounter Care Teams Radioisotope Technologist Relationship Specialty Start Date End Date Reji Castro MD [address] [place] [address] PCP - General Adolescent Medicine 10/02/22 documented as of this encounter
--- OUTSIDE RECORDS SUMMARY | 2025-05-14 10:45 | XMS_ITS | Encounter Summary ---
Author Organization [employer] Address [address] [place] [address] Care Team Providers Care Speedboat Driver Name Role Phone Reji Castro MD Primary Care Provider [phone] Encounter Details Date Type Department Care Team (Late st Contact Info) Description 08/19/2021 Transcribed Document [facility] Radiology [address] [place] [address] Loren Solorzano MD [address] [place] [address] [place] [id number] Social History Tobacco Use Types Packs/Day Years [...] Bioprosthetic mitral valve replacement / SNOMED CT 281645389 / Confirmed Chronic kidney disease / SNOMED CT 6105010798 / Confirmed COPD - Chronic obstructive pulmonary disease / SNOMED CT 994867900 / Confirmed History of obstructive sleep apnea / IMO [id number] / Confirmed HLD - Hyperlipidemia / SNOMED CT 327612038 / Confirmed HTN - Hypertension / SNOMED CT 2056320380 / Confirmed Canceled: Atrial fibrillation / SNOMED CT 86475721, Active Problems (25) AIHA (autoimmune hemolytic anemia) [...] Maximum Temp 99.1 (AUG 19 06:30) 98 ([facility] 00:00) 99.1 ([facility] 06:30) Apical HR 87 ([facility] 20:53) 87 ([facility] 20:53) 87 ([facility] 20:53) Mon HR 81 (AUG 19 06:30) 72 ([facility] 21:00) 87 ([facility] 15:27) Resp Rate 18 ([facility] 06:30) 16 ([facility] 00:00) 20 ([facility] 18:17) SBP 117 ([facility] 06:30) 94 ([facility] 21:00) 120 ([facility] 18:17) DBP 67 ([facility] 06:30) L 55 ([facility] 21:00) 67 ([facility] 06:30) MAP 85 ([facility] 06:30) 67 ([facility] 21:00) 87 ([facility] 18:17) SpO2 98 (AUG 19 06:30) L [...] data available Radiology Results (Last 48 hours) [id number] -- 08/11/2021 21:21 CR Chest 1 Vw [...] Hold home meds SSI #Depression Celexa #Pain Mentcle 10 mg every 6 hours as needed [...] on filedocumented in this encounter Care Teams Speedboat Driver Relationship Specialty Start Date End Date Reji Castro MD [address] [place] [address] PCP - General Adolescent Medicine 10/02/22 documented as of this encounter
--- OUTSIDE RECORDS SUMMARY | 2025-05-14 10:45 | XMS_ITS | Encounter Summary ---
Author Organization [employer] Address [address] [place] [address] Care Team Providers Care Custom Framing Specialist Name Role Phone Reji Castro MD Primary Care Provider + [phone] Encounter Details Date Type Department Care Team (Late st Contact Info) Description 08/11/2021 Transcribed Document [facility] [place] Family [place] [facility] [place] [address] ProviderDelvin MD [address] [place] [address] Social History Tobacco Use Types Packs/Day Years [...] 180 units of blood due to anemia[facility]. Primary Care Provider DEREK ROBISON DR History of Present Illness 56-year-old female with a history of COPD, atrial fibrillation, CKD unknown stage, type 2 diabetes, chronic anemia that has needed blood transfusions in the past, CAD, mitral valve replacement presents to [facility] emergency department in [place] after being told by outside provider that [...] fibrillation 5. Diabetes mellitus type II 6. snf current use of anticoagulant At risk for [...] # 0.76 K/uL (Low) 08/11/2021 17:59 EDT Power % 8.9 % 08/11/2021 17:59 EDT Power # 0.61 K/uL 08/11/2021 17:59 EDT Eos [...] Appearance CLEAR2 08/11/2021 17:59 EDT Urine Specific [place] 1.007 08/11/2021 17:59 EDT Urine pH Dipstick [...] Code, Continuous Order Electronically signed by Lanny [facility] Conversion Curtain Stretcher Assembler Cerner at 03/09/2023 8:40 PM CDT documented in this encounter Plan of Treatment Not on file documented as of this encounter Visit Diagnoses Not on filedocumented in this encounter Care Teams Custom Framing Specialist Relationship Specialty Start Date End Date Reji Castro MD [address] [place] [address] PCP - General Adolescent Medicine 10/02/22 documented as of this encounter
--- OUTSIDE RECORDS SUMMARY | 2025-05-14 10:45 | XMS_ITS | Encounter Summary ---
Author Organization [employer] Address [address] [place] [address] Care Team Providers Care Poleyard Supervisor Name Role Phone Reji Castro MD Primary Care Provider [phone] Encounter Details Date Type Department Care Team (Late st Contact Info) Description 08/14/2021 Transcribed Document [facility] [place] [address] [place] [address] ProviderDelvin MD [address] [place] [address] Social History Tobacco Use Types Packs/Day Years [...] on filedocumented in this encounter Care Teams Poleyard Supervisor Relationship Specialty Start Date End Date Reji Castro MD [address] [place] [address] PCP - General Adolescent Medicine 10/02/22 documented as of this encounter
--- OUTSIDE RECORDS SUMMARY | 2025-05-14 10:45 | XMS_ITS | Encounter Summary ---
Author Organization [employer] Address [address] [place] [address] Care Team Providers Care Senior Program Analyst Name Role Phone Reji Castro MD Primary Care Provider + [phone] Encounter Details Date Type Department Care Team (Late st Contact Info) Description 08/12/2021 Transcribed Document [facility] [place] [facility] [place] [address] ProviderDelvin MD [facility] [place] [address] Social History Tobacco Use Types Packs/Day Years [...] her port could not be accessed. Her mechanical system technician aspirated fluid from the port that was evidently purulent. I have not yet been able to track down that culture. After the aspiration she developed fever to 103, severe CHEUNG, myalgias and arthralgias. She was admitted to [facility]. She was in the hospital [...] antibiotics. On 08/08 she presented to a [facility] after she developed severe CHEUNG and myalgias w/o prominent fever. She was subsequently contacted and told to report to [facility] because she had + blood cutures concerning for an infected portacath +/- PVE. 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 [...] mg, 14 mL, 128 mL/Hr, IV Piggyback, [id number] DAPTOmycin + Sodium Chloride 0.9% intravenous solution 50 mL: 700 mg, 14 mL, 128 mL/Hr, IV Piggyback, [id number] Dextrose 50% injection: 12.5 Gram, IV Push, [...] tenderness, No swelling, No deformity. Integumentary: Warm, [place]. Neurologic: Alert, Oriented, No focal deficits. Psychiatric: [...] -- Await CHUCHO Electronically signed by Lanny [facility] Conversion Retail Salesperson Cerner at 03/09/2023 9:02 PM CDT documented in this encounter Plan of Treatment Not on file documented as of this encounter Visit Diagnoses Not on filedocumented in this encounter Care Teams Senior Program Analyst Relationship Specialty Start Date End Date Reji Castro MD [address] [place] [address] PCP - General Adolescent Medicine 10/02/22 documented as of this encounter
--- OUTSIDE RECORDS SUMMARY | 2025-05-14 10:45 | XMS_ITS | Encounter Summary ---
Author Organization [employer] Address [address] [place] [address] Care Team Providers Care Rattle Leak And Squeak Repairer Name Role Phone Reji Castro MD Primary Care Provider [phone] Encounter Details Date Type Department Care Team (Late st Contact Info) Description 08/14/2021 Transcribed Document [facility] [place] Family Medicine [address] [place] [address] ProviderDelvin MD [address] [place] [address] Social History Tobacco Use Types Packs/Day Years [...] Author: CHELI BEASLEY MD-CAR Basic Information Primary Certified Fire Investigator: Dr. Delmar Geronimo Wharf Worker: MD Nestor Subjective NAD Health Status Current [...] mL 700 mg 14 mL, IV Piggyback, [id number] famotidine 20 mg tab 20 mg 1 [...] of motion, Normal strength. Integumentary: Warm, Dry, [place]. Neurologic: Alert, Oriented. Psychiatric: Cooperative, Appropriate mood & affect. Results Review AUG 13 23:47 L 135 102 H 35 / H 114 4.2 29 H 1.80 \ SEP 22 23:47 \ L 8.1 / 5.5 206 / L 26.9 \ Cardiac Markers (Current Encounter/Past 24 Hours) CK 87 Units/Liter 08/13/2021 05:53 ProBNP 647 pg/mL [place] 08/14/2021 00:14 Radiology Results (Last 48 hours) [id number] -- 08/11/2021 21:21 CR Abdomen 1 Vw [...] MV, 4+ TR, no vegetation. Admitted [facility] 07/12, Negative CHUCHO, TTE for vegetation [...] appropriate per primary hosp service & primary crushing machine operator. Will sign-off, call if questions. RV w/ Dr. Sawyer 1 wk post DC. 08/13/21 Resume Toprol XL 25 mg QHS. Reinitiation of other HF meds as appropriate. 08/12/21 CHUCHO to assess for endocarditis & mechanical causes of hemolysis. Obtain records from [facility]. Check haptoglobin, LDH, reticulocyte count. Continue other current CV meds. Electronically signed by Lanny [facility] Conversion Cutter Banana Room Cerner at 03/09/2023 8:53 PM CDT documented in this encounter Plan of Treatment Not on file documented as of this encounter Visit Diagnoses Not on filedocumented in this encounter Care Teams Rattle Leak And Squeak Repairer Relationship Specialty Start Date End Date Reji Castro MD [address] [place] [id number] PCP - General Adolescent Medicine 10/02/22 documented as of this encounter
--- OUTSIDE RECORDS SUMMARY | 2025-05-14 10:45 | XMS_ITS | Encounter Summary ---
Author Organization [employer] Address [address] [place] [address] Care Team Providers Care Post Framer Name Role Phone Reji Castro MD Primary Care Provider [phone] Encounter Details Date Type Department Care Team (Late st Contact Info) Description 08/20/2021 Transcribed Document [facility] [place] [facility] [place] [address] ProviderDelvin MD [facility] [place] [address] Social History Tobacco Use Types Packs/Day Years [...] Warfarin HPI: 56 y/o F presenting to [facility] with history of COPD, [...] cefTRIAXone: 2 Gram, 100 mL/Hr, IV Piggyback, [id number]. citalopram: 40 mg, Oral, Daily. diphenhydrAMINE: 50 [...] questions. Thank you, Andrea Moraes, PharmD PGY1 Rn Or Lvn Pager: [phone], Ext. [phone] Electronically signed by Lanny, [facility] Conversion Coal Passer Cerner at 03/09/2023 8:58 PM CDT documented in this encounter Plan of Treatment Not on file documented as of this encounter Visit Diagnoses Not on filedocumented in this encounter Care Teams Post Framer Relationship Specialty Start Date End Date Reji Castro MD [address] [place] [id number] PCP - General Adolescent Medicine 10/02/22 documented as of this encounter
--- OUTSIDE RECORDS SUMMARY | 2025-05-14 10:45 | XMS_ITS | Encounter Summary ---
Author Organization [employer] Address [address] [place] [address] Care Team Providers Care Track Laminating Machine Tender Name Role Phone Reji Castro MD Primary Care Provider [phone] Encounter Details Date Type Department Care Team (Late st Contact Info) Description 08/19/2021 Transcribed Document [facility] [place] Family Medicine [address] [place] [address] ProviderDelvin MD [address] [place] [address] Social History Tobacco Use Types Packs/Day Years [...] on filedocumented in this encounter Care Teams Track Laminating Machine Tender Relationship Specialty Start Date End Date Reji Castro MD [address] [place] [id number] PCP - General Adolescent Medicine 10/02/22 documented as of this encounter
--- OUTSIDE RECORDS SUMMARY | 2025-05-14 10:45 | XMS_ITS | Encounter Summary ---
Author Organization [employer] Address [address] [place] [address] Care Team Providers Care Circus Train Supervisor Name Role Phone Reji Castro MD Primary Care Provider [phone] Encounter Details Date Type Department Care Team (Late st Contact Info) Description 08/25/2021 Transcribed Document [facility] [place] [address] [place] [address] ProviderDelvin MD [address] [place] [address] Social History Tobacco Use Types Packs/Day Years [...] Patient stated she has chest pain, called FARM MANAGEMENT TEACHER Team, called md. Vitals signs stable. Put zoll on patient. Stat ekg ordered, cxr and troponin. Patient transferred to [facility]. WILLIAMS HANEY RN - 08/25/2021 11:02 EDT documented in this encounter Plan of Treatment Not on file documented as of this encounter Visit Diagnoses Not on filedocumented in this encounter Care Teams Circus Train Supervisor Relationship Specialty Start Date End Date Reji Castro MD [address] [place] [id number] PCP - General Adolescent Medicine 10/02/22 documented as of this encounter
--- OUTSIDE RECORDS SUMMARY | 2025-05-14 10:45 | XMS_ITS | Encounter Summary ---
Author Organization [employer] Address [address] [place] [address] Care Team Providers Care Fire Warden Name Role Phone Reji Castro MD Primary Care Provider [phone] Encounter Details Date Type Department Care Team (Late st Contact Info) Description 08/19/2021 Transcribed Document [facility] [place] Family Medicine [address] [place] [address] ProviderDelvin MD [address] [place] [address] Social History Tobacco Use Types Packs/Day Years [...] Celestin MD - 08/19/2021 7:30 AM CDT [facility] Main OR Preop Summary Primary Physician: NENA PEARSON MD-[facility] Finalized Date/Time: 08/19/21 07:37:55 Pt. Name: IRINA TAMAYO/Sex: 1965 Female Med Rec #: [id number] Physician: VINCE BELLO MD Financial #: [id number] Pt. Type: I Room/Bed: 454/1 Admit/Disch: 08/11/21 21:21:00 - Institution: [facility] PreOp Case Times Entry 1 In Preop 08/19/21 05:49:00 Ready for Holding n/a Room Patient Ready for 08/19/21 06:35:00 Surgery Patient Out of Preop 08/19/21 07:33:00 Patient Out of n/a Holding Room Last Modified By: Merle Hicks Rn 08/19/21 07:37:50 [facility] PreOp Case Times Audit 08/19/21 07:37:50 Test Eng: [id number] Modifier: MFWARD <+> 1 Patient Out of Preop Finalized By: Merle Hicks Rn Document Signatures Signed By: Merle Hicks Rn 08/19/21 07:37 Electronically signed by Lanny [facility] Conversion Wind Instrument Repairer Cerner at 03/09/2023 8:32 PM CDT documented in this encounter Plan of Treatment Not on file documented as of this encounter Visit Diagnoses Not on filedocumented in this encounter Care Teams Fire Warden Relationship Specialty Start Date End Date Reji Castro MD [address] [place] [id number] PCP - General Adolescent Medicine 10/02/22 documented as of this encounter
--- OUTSIDE RECORDS SUMMARY | 2025-05-14 10:45 | XMS_ITS | Encounter Summary ---
Author Organization [employer] Address [address] [place] [address] Care Team Providers Care Pipe Insulator Name Role Phone Reji Castro MD Primary Care Provider [phone] Encounter Details Date Type Department Care Team (Late st Contact Info) Description 08/14/2021 Transcribed Document [facility] [place] Family Medicine [facility] [place] [address] ProviderDelvin MD [facility] [place] [address] Social History Tobacco Use Types Packs/Day Years Used Date Smoking Tobacco: Never Assessed Comments Unknown Sex and Gender Information Value Date Recorded Sex Assigned at Not on file Legal Sex Female 4:32 PM CDT Gender Identity Not on file Sexual Orientation Not on file documented as of this encounter Miscellaneous Notes * Cerner Conversion Note - Delvin ProviderMD - 08/14/2021 2:00 AM CDT Materials Management Supervisor Details Entered On: 08/14/2021 6:50 EDT Performed [...] filedocumented in this encounter Care Teams Pipe Insulator Relationship Specialty Start Date End Date Reji Castro MD [address] [place] [id number] PCP - General Adolescent Medicine 10/02/22 documented as of this encounter
--- OUTSIDE RECORDS SUMMARY | 2025-05-14 10:45 | XMS_ITS | Encounter Summary ---
Author Organization [employer] Address [address] [place] [address] Care Team Providers Care Director Content Marketing Name Role Phone Reji Castro MD Primary Care Provider [phone] Encounter Details Date Type Department Care Team (Late st Contact Info) Description 08/20/2021 Transcribed Document [facility] [place] [facility] [place] [address] ProviderDelvin MD [address] [place] [address] Social History Tobacco Use Types Packs/Day Years [...] EDT Performed On: 08/20/2021 13:33 EDT by MADIAN LOVETT, JEREMIAH - TherapistBed Laster Progress Note Discharge Arrangements : Patient Post-Acute [...] Rounds? : Yes MADINA LOVETT RN - Therapist - 08/20/2021 13:33 EDT Narrative Progress Note Narrative Progress Note : RRS Low Boost 5 Day 07/30 Patient was admitted for staph infection and port removal. She had a new port placed on 08/19. Patient needs to remain inpatient until her coumadin is at a therapeutic level per at [facility]. Patient will need IV rocephin until 09/08. Patient will need home health and says she has used [facility] in the past. CM will [...] is at a therapeutic level per at [facility]. Waiting on culture results for final abx plan. May need IV abx at home via port. Patient will need home health and lvies in [place]. [facility] home [facility] is a possibility. MADINA LOVETT RN - Therapist - 08/19/21 15:40:22 RRS Low Boost 5 [...] will need home health and lives in [place]. [facility] home [facility] is a possibility. CM will continue to follow. DCP: MADINA LOVETT RN - Therapist - 08/18/21 15:47:49 (late entry from 08/15-) [...] and send referrals as appropriate. JULIO STEWART, RN-Therapist ED - 08/18/21 10:38:39 MADINA LOVETT, JEREMIAH - Therapist - 08/20/2021 13:33 EDT Electronically signed by [facility] Conversion Layout Mechanic Cerner at 03/09/2023 8:49 PM CDT documented in this encounter Plan of Treatment Not on file documented as of this encounter Visit Diagnoses Not on filedocumented in this encounter Care Teams Director Content Marketing Relationship Specialty Start Date End Date Reji Castro MD [address] [place] [id number] PCP - General Adolescent Medicine 10/02/22 documented as of this encounter
--- OUTSIDE RECORDS SUMMARY | 2025-05-14 10:45 | XMS_ITS | Encounter Summary ---
Author Organization [employer] Address [address] [place] [address] Care Team Providers Care Independent Living Advisor Name Role Phone Reji Castro MD Primary Care Provider [phone] Encounter Details Date Type Department Care Team (Late st Contact Info) Description 08/20/2021 Transcribed Document [facility] Radiology [address] [place] [address] Loren Solorzano MD [address] [place] [address] [address] [place] [id number] Social History Tobacco Use Types Packs/Day Years [...] cefTRIAXone: 2 Gram, 100 mL/Hr, IV Piggyback, [id number] diphenhydrAMINE: 25 mg, Oral, Q6H, PRN: Itching [...] Oral, BID cefTRIAXone 2 Gram, IV Piggyback, [id number] citalopram 20 mg tab 40 mg 2 [...] Bioprosthetic mitral valve replacement / SNOMED CT 540587725 / Confirmed Chronic kidney disease / SNOMED CT 6555030547 / Confirmed COPD - Chronic obstructive pulmonary disease / SNOMED CT 308496241 / Confirmed History of obstructive sleep apnea / IMO 05154799 / Confirmed HLD - Hyperlipidemia / SNOMED CT 584438015 / Confirmed HTN - Hypertension / SNOMED CT 8022510849 / Confirmed Canceled: Atrial fibrillation / SNOMED CT 22453293, Active Problems (25) AIHA (autoimmune hemolytic anemia) [...] 25.9 \ Radiology Results (Last 48 hours) [id number] -- 08/11/2021 21:21 CR Fluoro in OR (08/19/2021 08:15) Result: FLUOROSCOPY IN THE ORHISTORY: Staph infection.FINDINGS: Fluoroscopy was provided by the radiology department [id number] placement. 1 spot film was submittedFLUOROSCOPY TIME: [...] Medications: cefTRIAXone 2 Gram, IV Piggyback, Inj, [id number], infuse over 30 Minute(s), Routine, Start 08/20/21 [...] Hold home meds SSI #Depression Celexa #Pain [place] 10 mg every 6 hours as needed Dispo: Given patient with history of multiple transfusion we will keep patient in the hospital on heparin drip and Coumadin till INR therapeutic need IV abx, at least until 09/08. Discussed with casework specialist. Time spent 25 minutes documented in this encounter Plan of Treatment Not on file documented as of this encounter Visit Diagnoses Not on filedocumented in this encounter Care Teams Independent Living Advisor Relationship Specialty Start Date End Date Reji Castro MD [address] [place] [address] PCP - General Adolescent Medicine 10/02/22 documented as of this encounter
--- OUTSIDE RECORDS SUMMARY | 2025-05-14 10:45 | XMS_ITS | Encounter Summary ---
Author Organization [employer] Address [address] [place] [address] Care Team Providers Care Media Sales Executive Name Role Phone Reji Castro MD Primary Care Provider [phone] Encounter Details Date Type Department Care Team (Late st Contact Info) Description 08/25/2021 Transcribed Document [facility] [place] [address] [place], [place] [id number] ProviderDelvin MD [address] [place] [address] Social History Tobacco Use Types Packs/Day Years [...] cefTRIAXone: 2 Gram, 100 mL/Hr, IV Piggyback, [id number] diphenhydrAMINE: 25 mg, Oral, Q6H, PRN: Itching [...] Oral, BID cefTRIAXone 2 Gram, IV Piggyback, [id number] citalopram 20 mg tab 40 mg 2 [...] Bioprosthetic mitral valve replacement / SNOMED CT 447096109 / Confirmed Chronic kidney disease / SNOMED CT 6464291223 / Confirmed COPD - Chronic obstructive pulmonary disease / SNOMED CT 967723067 / Confirmed History of obstructive sleep apnea / IMO 07780768 / Confirmed HLD - Hyperlipidemia / SNOMED CT 326682344 / Confirmed HTN - Hypertension / SNOMED CT 5075429754 / Confirmed Canceled: Atrial fibrillation / SNOMED CT 23521843, Active Problems (25) AIHA (autoimmune hemolytic anemia) [...] on filedocumented in this encounter Care Teams Media Sales Executive Relationship Specialty Start Date End Date Reji Castro MD [address] [place] [address] PCP - General Adolescent Medicine 10/02/22 documented as of this encounter
--- OUTSIDE RECORDS SUMMARY | 2025-05-14 10:45 | XMS_ITS | Encounter Summary ---
Author Organization [facility] [employer] Address [address] [place] [address] Care Team Providers Care Marksmanship Instructor Name Role Phone Reji Castro MD Primary Care Provider [phone] Encounter Details Date Type Department Care Team (Late st Contact Info) Description 08/19/2021 Transcribed Document [facility] [place] [address] [place] [address] ProviderDelvin MD [address] [place] [address] Social History Tobacco Use Types Packs/Day Years [...] 08/19/2021 11:39 EDT Electronically signed by Lanny [facility] Conversion Visual Display Associate Cerner at 03/09/2023 8:47 PM CDT documented in this encounter Plan of Treatment Not on file documented as of this encounter Visit Diagnoses Not on filedocumented in this encounter Care Teams Marksmanship Instructor Relationship Specialty Start Date End Date Reji Castro MD [address] [place] [address] PCP - General Adolescent Medicine 10/02/22 documented as of this encounter
--- OUTSIDE RECORDS SUMMARY | 2025-05-14 10:45 | XMS_ITS | Encounter Summary ---
Author Organization [employer] Address [address] [place] [address] Care Team Providers Care Store Person Name Role Phone Reji Castro MD Primary Care Provider [phone] Encounter Details Date Type Department Care Team (Late st Contact Info) Description 08/14/2021 Transcribed Document [facility] [place] Family Medicine [facility] [place] [address] ProviderDelvin MD [address] [place] [address] Social History Tobacco Use Types Packs/Day Years [...] Celestin MD - 08/14/2021 7:45 AM CDT [facility] Main OR IntraOp Summary Primary Physician: NENA PEARSON MD-SUR Finalized Date/Time: 08/18/21 09:41:55 Pt. Name: TAMAYO IRINAGE Solis/Sex: 1965 Female Med Rec #: [id number] Physician: VINCE BELLO MD Financial #: [id number] Pt. Type: I Room/Bed: [facility]/ Admit/Disch: 08/11/21 21:21:00 - Institution: [facility] IntraOp Case Attendance Entry 1 Entry 2 Entry 3 Case Attendee NENA PEARSON MD-SUR Montgomery, Hazel, RN Poe, Kali, RN Role Performed Surgeon/Proceduralist, Master Steam Yacht, First Master Steam Yacht, Second First Time In 08/14/21 07:34:00 08/14/21 [...] Case Attendee Randee Swain, Scrub TAMELA PRITCHETT, BURLAP ROLL COVERER BORIS VEGAS Tech MD-ANS Role Performed Scrub, First BURLAP ROLL COVERER/Nurse Kindergarten Assistant Anesthesiologist of Record Time In 08/14/21 07:34:00 08/14/21 07:34:00 08/14/21 07:34:00 Time Out 08/14/21 08:17:00 08/14/21 08:17:00 08/14/21 08:17:00 Procedure Vascular Access Removal Vascular Access Removal Vascular Access Removal Other Attendee Superficial Wound Closed By: Last Modified By: Erika Montgomery, Erika Chand, Erika Chand, JEREMIAH 08/14/21 08:22:17 08/14/21 08:22:17 08/14/21 08:22:17 Entry 7 Case Attendee OTHER, ATTENDEE #1 Role Performed BURLAP ROLL COVERER/Nurse Kindergarten Assistant Time In 08/14/21 07:34:00 Time Out 08/14/21 08:17:00 Procedure Vascular Access Removal Other Attendee JOEY HOBBS BURLAP ROLL COVERER STUDENT Superficial Wound Closed By: Last Modified By: Erika Montgomery RN 08/14/21 10:50:59 [facility] IntraOp Case Attendance Audit 08/14/21 10:50:59 Warp Hand: LIAM Modifier: LIAM 7 <*> Procedure Vascular Access Removal 7 <*> Other Attendee JOEY PROCTOR BURLAP ROLL COVERER STUDENT 08/14/21 08:24:52 Warp Hand: LAFAVEHM Modifier: LAFAVEHM <+> 7 Case Attendee <+> 7 Role Performed <+> 7 Time In <+> 7 Time Out <+> 7 Procedure <+> 7 Other Attendee 08/14/21 08:22:17 Warp Hand: LAFAVEHM Modifier: LAFAVEHM 1 <+> Time In [...] Out 6 <*> Procedure Vascular Access Removal [facility] IntraOp Case Times Entry 1 Patient In Room Time 08/14/21 07:34:00 Out Room Time 08/14/21 08:17:00 Anesthesia Start Time 08/14/21 07:34:00 Stop Time 08/14/21 08:17:00 Surgery / Procedure Times Start Time 08/14/21 07:45:00 Stop Time 08/14/21 08:08:00 Last Modified By: Erika Montgomery RN 08/14/21 08:17:16 [facility] IntraOp Case Times Audit 08/14/21 08:17:16 Warp Hand: LAFAVEHM Modifier: LAFAVEHM <+> 1 Out Room Time <+> 1 Stop Time <+> 1 Stop Time 08/14/21 07:46:45 Warp Hand: LAFAVEHM Modifier: LAFAVEHM <+> 1 Start Time [facility] IntraOp Cautery Entry 1 ESU Identification Cautery Type Monopolar ESU ID Number [id number] ID Type Hospital Number Cautery Settings Cut Setting 30 Coag Setting 30 ESU Grounding Pad Ground Pad Type Reusable electrode pad Grounding Pad Type MEGADYNE PAD Comment Grounding Pad Site Posterior Grounding Pad Site Warm, dry and intact Skin Condition Before Cautery Grounding Pad Site Unchanged Skin Condition After Cautery Last Modified By: Erika Montgomery RN 08/14/21 07:19:50 [facility] IntraOp Communication Entry 1 Communication To Family/Significant other Communication By Erika Montgomery RN Date and Time 08/14/21 07:47:00 Last Modified By: Erika Montgomery RN 08/14/21 07:47:41 [facility] IntraOp Counts Verification Entry 1 Procedure Vascular Access Removal Count Info Count Type Sponge, Sharps, Miscellaneous Counts Verification Baseline/pre-procedure Sequence Counts Performed By Count Performed By Randee Swain Scrub (Scrub) Tech Count Performed By Jj Mancuso RN (RN) Last Modified By: Erika Montgomery RN 08/14/21 07:18:54 [facility] IntraOp Counts Final Entry 1 Procedure Vascular Access Removal Final Count Info Count Type Sponge, Sharps, Miscellaneous Counts Verification Skin Closure/end of Sequence procedure Count Results Correct, surgeon notified Counts Performed By Count Performed By Randee Swain Scrub (Scrub) Tech Count Performed By Jj Mancuso RN (RN) Last Modified By: Erika Montgomery RN 08/14/21 08:02:40 [facility] IntraOp Counts Final Audit 08/14/21 08:02:40 Warp Hand: LIAM Modifier: LIAM 1 <*> Procedure Vascular Access Removal 1 <*> Count Type Sponge, Sharps, Miscellaneous 1 <*> Count Results Correct, surgeon notified 1 <+> Count Performed By (Scrub) 1 <+> Count Performed By (RN) 1 <*> Counts Verification Sequence Skin Closure/end of procedure [facility] IntraOp Cultures and Spec Summary Entry 1 Cultrures and Specimens Specimen Ordered: Yes Test(s) Culture(s)/Microbiology Requested/Final Disposition Last Modified By: Erika Montgomery RN 08/14/21 07:51:28 [facility] IntraOp Delays Entry 1 Delay Reason Other Duration 4 Minute(s) Comment MEDICATION DELAY Last Modified By: Erika Montgomery RN 08/14/21 07:49:40 [facility] IntraOp Departure from OR Entry 1 Integumentary Assessment Transfer/Handoff Transfer to Other Handoff Method Bedside/Face to face, Phone call, Online nursing summary Post-op Transport Stretcher/Roderick Via Patient Transport TAMELA PRITCHETT CRNA Accompanied by Transfer/Handoff RN REPORT ( ELEVATED Comments HOB WEIGHT OVER DRRESSING (IV BAG) RESTRICT USE LEFT ARM X [address] PEARSON. TRANSPORT TO FLOOR BY [facility] Last Modified By: Erika Montgomery RN 08/14/21 08:21:55 [facility] IntraOp Departure from OR Audit 08/14/21 08:21:55 Warp Hand: LIAM Modifier: LAFBEAR 1 <*> Transfer/Handoff Comments TRANSPORT TO FLOOR BY [facility] 1 <+> Post-op Transport Via [facility] IntraOp Dressing and Packing Entry 1 Type Dressing Location L UPPER CHEST Wound Dressing Item 4x4's, Skin Closure Glue Other Comments PRESSURE DRESSING Last Modified By: Erika Montgomery RN 08/14/21 08:19:18 [facility] IntraOp Fire Risk Assessment [...] Modified By: Erika Montgomery RN 08/14/21 07:49:49 [facility] IntraOp Fire Risk Assessment Audit 08/14/21 07:49:49 Warp Hand: LIAM Modifier: LAFAVEHM <+> 1 Fire Risk Assessment Verified Date/Time [facility] IntraOp General Case Corporate Development Analyst 1 Case Information OR OR 08 [facility] Case Level 1 Room Verified Yes Wound Class I - Clean Specialty General Anesthesia Type MAC ASA Class 4 Diagnosis Preop Diagnosis INFECTED SANAM CATH Postop Same As Preop No Postop Diagnosis SEE MD POST OP NOTES Last Modified By: Erika Montgomery RN 08/14/21 07:52:14 [facility] IntraOp General Case Data Audit 08/14/21 07:52:14 Warp Hand: LIAM Modifier: LAFRUSTYHM <+> 1 Preop Diagnosis [facility] IntraOp Intraoperative Assessment Entry 1 Handoff Method Bedside/Face to face, Phone call, Online nursing summary Valid History / Yes Physical in Chart Preoperative Yes Checklist Reviewed/Evaluated Allergies Reviewed Yes Patient is Latex No Sensitive Present Upon IVs Arrival to OR Last Modified By: Erika Montgomery RN 08/14/21 07:20:57 [facility] IntraOp Intraoperative Equipment Entry 1 Type Monitoring Equipment Equipment Juan Carlos Suction System Intraop Monitoring Antiembolic Devices Scopes Photo/Video Documentation Last Modified By: Erika Montgomery RN 08/14/21 07:21:08 [facility] IntraOp Medication Admin Entry 1 Medication/Irrigant lidocaine 1% w/ epinephrine 1:100,000 30ml vial - [id number] Route of LOCAL Administration Dose Dose 10 Unit of Measure ml Administered By NENA PEARSON MD-SUR Procedure Irrigation Last Modified By: Erika Montgomery RN 08/14/21 08:02:53 [facility] IntraOp Medication Admin Audit 08/14/21 08:02:53 Warp Hand: LAFAVEHM Modifier: LAFAVEHM 1 <*> Medication/Irrigant lidocaine 1% w/ epinephrine 1:100,000 30ml vial - [id number] 1 <+> Dose [facility] IntraOp Patient Positioning Entry [...] Modified By: Erika Montgomery RN 08/14/21 07:23:01 [facility] IntraOp Patient Positioning Audit 08/14/21 07:23:01 Warp Hand: LAFAVEHM Modifier: LAFAVEHM 1 <*> Procedure Vascular Access Removal 1 <+> Positioning Verified by Anesthesia 1 <+> Positioning Verified by Surgeon 1 <+> Positioned By [facility] IntraOp Sign In Entry [...] Modified By: Erika Montgomery RN 08/14/21 07:47:09 [facility] IntraOp Sign Out Entry [...] Modified By: Erika Montgomery RN 08/14/21 08:22:10 [facility] IntraOp Sign Out Audit 08/14/21 08:22:10 Warp Hand: LIAM Modifier: LAFAVEHM <+> 1 RN Sign Out Signature Date/Time [facility] IntraOp Skin Prep Entry 1 Procedure Vascular Access Removal Prescribed Yes Pre-Surgical Prep Completed Prep Area CHEST INCLUDE LEFT SHOULDER Intraop Prep Prep Agents Chloraprep Prep by NENA PEARSON MD-TATYANA Hair Removal Methods No hair removal performed Last Modified By: Erika Montgomery RN 08/14/21 07:49:03 [facility] IntraOp Surgical Procedures Entry 1 Procedure Vascular Access Removal Additional (PORT A CATH REMOVAL) Procedure Description Primary Procedure Yes Primary Surgeon NENA PEARSON MD-TATYANA Start 08/14/21 07:45:00 Stop 08/14/21 08:08:00 Anesthesia Type MAC Specialty General Wound Class I - Clean Last Modified By: Erika Montgomery RN 08/14/21 08:22:14 General Comments: PATIENT ON SCHEDULED ANTIBIOTICS/ NO ADDITIONAL ANTIBIOTICS PER SURGEON [facility] IntraOp Surgical Procedures Audit 08/14/21 08:22:14 Warp Hand: LIAM Modifier: LAFAVEHM 1 <*> Stop 08/14/21 07:48:13 Warp Hand: LIAM Modifier: LIAM 1 <*> Start 1 <*> Start [facility] IntraOP Time Out Entry [...] on filedocumented in this encounter Care Teams Store Person Relationship Specialty Start Date End Date Reji Castro MD [address] [place] [id number] PCP - General Adolescent Medicine 10/02/22 documented as of this encounter
--- OUTSIDE RECORDS SUMMARY | 2025-05-14 10:45 | XMS_ITS | Encounter Summary ---
Author Organization [employer] Address [address] [place] [address] Care Team Providers Care Backhoe Operator Name Role Phone Reji Castro MD Primary Care Provider + [phone] Encounter Details Date Type Department Care Team (Late st Contact Info) Description 08/25/2021 Transcribed Document [facility] [place] Family Medicine [address] [place] [address] ProviderDelvin MD [address] [place] [address] Social History Tobacco Use Types Packs/Day Years [...] Event : Transfer to telemetry Rapid Response Backhoe Operator #1 : ROBERTO KOHLI RN Rapid Response Backhoe Operator #2 : ROBERTO CAMARA, PAYROLL CLERK ROBERTO KOHLI RN - 08/25/2021 9:33 EDT [...] Chronic kidney disease, unspecified Heart failure, unspecified exterminator (current) use of anticoagulants Medical screening exam [...] on filedocumented in this encounter Care Teams Backhoe Operator Relationship Specialty Start Date End Date Reji Castro MD [address] [place] [id number] PCP - General Adolescent Medicine 10/02/22 documented as of this encounter
--- OUTSIDE RECORDS SUMMARY | 2025-05-14 10:45 | XMS_ITS | Encounter Summary ---
Author Organization [employer] Address [address] [place] [address] Care Team Providers Care Advance Scout Name Role Phone Reji Castro MD Primary Care Provider [phone] Encounter Details Date Type Department Care Team (Late st Contact Info) Description 08/11/2021 Transcribed Document [facility] [place] Family Medicine [address] [place] [address] ProviderDelvin MD [address] [place] [address] Social History Tobacco Use Types Packs/Day Years [...] on filedocumented in this encounter Care Teams Advance Scout Relationship Specialty Start Date End Date Reji Castro MD [address] [place] [id number] PCP - General Adolescent Medicine 10/02/22 documented as of this encounter
--- OUTSIDE RECORDS SUMMARY | 2025-05-14 10:45 | XMS_ITS | Encounter Summary ---
Author Organization [email or web address] Address [address] [place] [address] Care Team Providers Care Target Protection Specialist Name Role Phone Reji Castro MD Primary Care Provider [phone] Encounter Details Date Type Department Care Team (Late st Contact Info) Description 08/25/2021 Transcribed Document [facility] [place] Family Medicine [facility] [address] [place], [place] [id number] ProviderDelvin MD [address] [place] [address] Social History Tobacco Use Types Packs/Day Years [...] HPI: 56 y/o F presenting to [facility] with history of COPD, atrial fibrillation, CKD [...] cefTRIAXone: 2 Gram, 100 mL/Hr, IV Piggyback, [id number]. citalopram: 40 mg, Oral, Daily. diphenhydrAMINE: 25 [...] floor. Thank you, Andrea Moraes, PharmD PGY1 Veneer Sheet Repairer Pager: [phone], Ext. [phone] documented in this encounter Plan of Treatment Not on file documented as of this encounter Visit Diagnoses Not on filedocumented in this encounter Care Teams Target Protection Specialist Relationship Specialty Start Date End Date Reji Castro MD [address] [place] [address] PCP - General Adolescent Medicine 10/02/22 documented as of this encounter
--- OUTSIDE RECORDS SUMMARY | 2025-05-14 10:45 | XMS_ITS | Encounter Summary ---
Author Organization [employer] Address [address] [place] [address] Care Team Providers Care Cheese Supervisor Name Role Phone Reji Castro MD Primary Care Provider [phone] Encounter Details Date Type Department Care Team (Late st Contact Info) Description 08/20/2021 Transcribed Document [facility] [place] Family Medicine [address] [place] [address] ProviderDelvin MD [address] [place] [address] Social History Tobacco Use Types Packs/Day Years [...] On: 08/20/2021 5:00 EDT by Eula Tinoco Ropeman-Health Unit Coord Height and Weight, Routine Routine Weight Source : Standing scale Routine Weight Entry Format : Galax Routine Weight, Pounds : 204 lb Routine Weight, Ounces : 7 oz Routine Weight Calculation : 92.93 kg Height Source : Stated Height Entry Format : Galax Height, Feet : 5 ft Height, Inches : 4 Inch Clinical Height : 162.56 cm Body Surface Area (BSA), Routine : 1.98 m2 Body Mass Index (BMI), Routine : 35.17 kg/m2 Eula Tinoco Ropeman-Health Unit Coord - 08/20/2021 6:41 EDT Electronically signed by Lanny, [facility] Conversion Development Writer Cerner at 03/09/2023 8:44 PM CDT documented in this encounter Plan of Treatment Not on file documented as of this encounter Visit Diagnoses Not on filedocumented in this encounter Care Teams Cheese Supervisor Relationship Specialty Start Date End Date Reji Castro MD [address] [place] [address] PCP - General Adolescent Medicine 10/02/22 documented as of this encounter
--- OUTSIDE RECORDS SUMMARY | 2025-05-14 10:45 | XMS_ITS | Encounter Summary ---
Author Organization [employer] Address [address] [place] [address] Care Team Providers Care Front Desk Coordinator Name Role Phone Reji Castro MD Primary Care Provider [phone] Encounter Details Date Type Department Care Team (Late st Contact Info) Description 08/26/2021 Transcribed Document [facility] Family Medicine [address] [place] [address] ProviderDelvin MD [address] [place] [address] Social History Tobacco Use Types Packs/Day Years [...] cefTRIAXone: 2 Gram, 100 mL/Hr, IV Piggyback, [id number] diphenhydrAMINE: 25 mg, Oral, Q6H, PRN: Itching [...] Oral, BID cefTRIAXone 2 Gram, IV Piggyback, [id number] citalopram 20 mg tab 40 mg 2 [...] Bioprosthetic mitral valve replacement / SNOMED CT 710740411 / Confirmed Chronic kidney disease / SNOMED CT 4664416329 / Confirmed COPD - Chronic obstructive pulmonary disease / SNOMED CT 529645945 / Confirmed History of obstructive sleep apnea / IMO [id number] / Confirmed HLD - Hyperlipidemia / SNOMED CT 215416747 / Confirmed HTN - Hypertension / SNOMED CT 6207455026 / Confirmed Canceled: Atrial fibrillation / SNOMED CT 80326678, Active Problems (25) AIHA (autoimmune hemolytic anemia) [...] adjust medications. Electronically signed by [facility], [facility] Conversion Rn Correctional Cerner at 03/09/2023 8:56 PM CDT documented in this encounter Plan of Treatment Not on file documented as of this encounter Visit Diagnoses Not on filedocumented in this encounter Care Teams Front Desk Coordinator Relationship Specialty Start Date End Date Reji Castro MD [address] [place] [id number] PCP - General Adolescent Medicine 10/02/22 documented as of this encounter
--- OUTSIDE RECORDS SUMMARY | 2025-05-14 10:45 | XMS_ITS | Encounter Summary ---
Author Organization [employer] Address [address] [place] [address] Care Team Providers Care Arboriculture Instructor Name Role Phone Reji Castro MD Primary Care Provider [phone] Encounter Details Date Type Department Care Team (Late st Contact Info) Description 08/11/2021 Transcribed Document [facility] [place] [address] [place] [address] ProviderDelvin MD [address] [place] [address] Social History Tobacco Use Types Packs/Day Years [...] Communication Barrier : None Primary Language : Nauruan Any Spiritual/Cultural Needs or Requests : No [...] Neurologic ASMT, ED Neurologic Assessment WDL : [facility] MARIPOSA JACQUES RN - 08/11/2021 [...] on filedocumented in this encounter Care Teams Arboriculture Instructor Relationship Specialty Start Date End Date Reji Castro MD [address] [place] [address] PCP - General Adolescent Medicine 10/02/22 documented as of this encounter
--- OUTSIDE RECORDS SUMMARY | 2025-05-14 10:45 | XMS_ITS | Encounter Summary ---
Author Organization [employer] Address [address] [facility] [facility] [place] [address] Care Team Providers Care Supervisor Inventory Merchandising Name Role Phone Reji Castro MD Primary Care Provider + [phone] Encounter Details Date Type Department Care Team (Late st Contact Info) Description 08/14/2021 Transcribed Document [facility] [place] [facility] [address] ProviderDelvin MD [address] [place] [address] Social History Tobacco Use Types Packs/Day Years [...] back to her room in stable condition. /[id number] MD DOTTIE Pollard/TONYA / DOTTIE / KENDRA /[id number] Electronically signed by Lanny, [facility] Conversion Mechanical Engineer Cerner at 03/09/2023 8:43 PM CDT documented in this encounter Plan of Treatment Not on file documented as of this encounter Visit Diagnoses Not on filedocumented in this encounter Care Teams Supervisor Inventory Merchandising Relationship Specialty Start Date End Date Reji Castro MD [address] [place] [id number] PCP - General Adolescent Medicine 10/02/22 documented as of this encounter
--- OUTSIDE RECORDS SUMMARY | 2025-05-14 10:45 | XMS_ITS | Encounter Summary ---
Author Organization [employer] Address [address] [place] [address] Care Team Providers Care Rn Imcu Name Role Phone Reji Castro MD Primary Care Provider [phone] Encounter Details Date Type Department Care Team (Late st Contact Info) Description 08/19/2021 Transcribed Document [facility] [place] Family Medicine [address] [place] [address] ProviderDelvin MD [address] [place] [address] Social History Tobacco Use Types Packs/Day Years [...] Celestin MD - 08/19/2021 7:51 AM CDT [facility] Main OR IntraOp Summary Primary Physician: NENA PEARSON MD-SUR Finalized Date/Time: 08/20/21 09:11:26 Pt. Name: TAMAYO IRINAMARCIO Solis/Sex: 1965 Female Med Rec #: [id number] Physician: VINCE BELLO MD Financial #: [id number] Pt. Type: I Room/Bed: [facility]/ Admit/Disch: 08/11/21 21:21:00 - Institution: [facility] IntraOp Case Attendance Entry 1 Entry 2 Entry 3 Case Attendee NENA PEARSON MD-ERNESTO FISCHER APRN, BURBERRY, KEITH, MD-ANS CHURCH HISTORY PROFESSOR Role Performed Surgeon/Proceduralist, CHURCH HISTORY PROFESSOR/Nurse Electrical Assembly Supervisor Anesthesiologist of First Record Time In 08/19/21 [...] YULIA JIM, SCRUB Josh Rivera, ALICIA SOTELO, TRACER BULLET SECTION SUPERVISOR/CSA TECH Role Performed Grove Worker, First Utility Inspector, First Scrub, First Time In 08/19/21 07:29:00 08/19/21 07:29:00 08/19/21 07:29:00 Time Out 08/19/21 08:24:00 08/19/21 08:24:00 08/19/21 08:24:00 Procedure Vascular Access Vascular Access Vascular Access Insertion Insertion Insertion Other Attendee Superficial Wound Closed By: Last Modified By: Josh Rivera, Josh Perez, Josh Perez, JEREMIAH 08/19/21 08:35:46 08/19/21 08:35:46 08/19/21 08:35:46 Entry 7 Case Attendee David Greene, Field Pipe Lines Supervisor Role Performed Senior Information Security Analyst Time In 08/19/21 07:55:00 Time Out 08/19/21 08:07:00 Procedure Vascular Access Insertion Other Attendee Superficial Wound Closed By: Last Modified By: Josh Rivera RN 08/19/21 08:35:46 [facility] IntraOp Case Attendance Audit 08/19/21 08:35:46 Radio Frequency Technician: JAZLYN Modifier: JAZLYN 1 <+> Time Out [...] <*> Procedure Vascular Access Insertion 08/19/21 08:07:27 Radio Frequency Technician: JAZLYN Modifier: PANTANOS 1 <*> Procedure Vascular Access Insertion 2 <*> Procedure Vascular Access Insertion 3 <*> Procedure Vascular Access Insertion 4 <*> Procedure Vascular Access Insertion 5 <*> Procedure Vascular Access Insertion 6 <*> Procedure Vascular Access Insertion 7 <+> Time In 7 <+> Time Out 7 <*> Procedure Vascular Access Insertion 08/19/21 08:04:07 Radio Frequency Technician: JAZLYN Modifier: PANTANOS <+> 7 Case Attendee <+> 7 Role Performed <+> 7 Procedure 08/19/21 08:00:27 Radio Frequency Technician: JAZLYN Modifier: PANTANOS 1 <*> Procedure Vascular Access Insertion 2 <*> Procedure Vascular Access Insertion 3 <*> Procedure Vascular Access Insertion 4 <+> Time In 4 <*> Procedure Vascular Access Insertion 5 <+> Time In 5 <*> Procedure Vascular Access Insertion 6 <+> Time In 6 <*> Procedure Vascular Access Insertion 08/19/21 07:52:21 Radio Frequency Technician: JAZLYN Modifier: PANTANOS <+> 1 Procedure 2 <+> Time In 2 <*> Procedure Vascular Access Insertion 3 <+> Time In 3 <*> Procedure Vascular Access Insertion <+> 4 Case Attendee <+> 4 Role Performed <+> 4 Procedure <+> 5 Case Attendee <+> 5 Role Performed <+> 5 Procedure <+> 6 Case Attendee <+> 6 Role Performed <+> 6 Procedure [facility] IntraOp Case Times Entry 1 Patient In Room Time 08/19/21 07:29:00 Out Room Time 08/19/21 08:24:00 Anesthesia Start Time 08/19/21 07:29:00 Stop Time 08/19/21 08:24:00 Surgery / Procedure Times Start Time 08/19/21 07:51:00 Stop Time 08/19/21 08:17:00 Last Modified By: Josh Rivera RN 08/19/21 08:24:22 [facility] IntraOp Case Times Audit 08/19/21 08:24:22 Radio Frequency Technician: JAZLYN Modifier: MAKENNAANOS <+> 1 Out Room Time <+> 1 Stop Time <+> 1 Stop Time 08/19/21 07:51:02 Radio Frequency Technician: JAZLYN Modifier: JUDITHS <+> 1 Start Time [facility] IntraOp Cautery Entry 1 ESU Identification Cautery Type Monopolar ESU ID Number [id number] ID Type Hospital Number Cautery Settings Cut Setting 30 Coag Setting 30 ESU Grounding Pad Ground Pad Type Adult Grounding Pad Site Right Buttock Grounding Pad Josh Rivera RN Applied By Grounding Pad Site Intact Skin Condition Before Cautery Grounding Pad Site Intact Skin Condition After Cautery Last Modified By: Josh Rivera RN 08/19/21 07:52:52 [facility] IntraOp Communication Entry 1 Communication To Family/Significant other Communication By Josh Rivera RN Last Modified By: Josh Rivera RN 08/19/21 07:58:45 [facility] IntraOp Counts Verification Entry 1 Procedure Vascular Access Insertion Count Info Count Type Sponge, Sharps, Miscellaneous Counts Verification Baseline/pre-procedure Sequence Count Results Correct, surgeon notified Counts Performed By Count Performed By ALICIA MACIAS SCRUB (Scrub) TECH Count Performed By Josh Rivera RN (RN) Last Modified By: Josh Rivera RN 08/19/21 07:53:18 [facility] IntraOp Counts Final Entry 1 Procedure Vascular Access Insertion Final Count Info Count Type Sponge, Sharps, Miscellaneous Counts Verification Skin Closure/end of Sequence procedure Count Results Correct, surgeon notified Counts Performed By Count Performed By ALICIA MACIAS SCRUB (Scrub) TECH Count Performed By Josh Rivera RN (RN) Last Modified By: Josh Rivera RN 08/19/21 07:53:41 [facility] IntraOp Departure from OR Entry 1 Integumentary Assessment Integumentary WDL Assessment WDL Transfer/Handoff Transfer to Nursing unit Handoff Method Bedside/Face to face, Online nursing summary Post-op Transport Stretcher/Roderick Via Patient Transport ERNESTO SOUSA APRN, Accompanied by CHURCH HISTORY PROFESSOR Last Modified By: Josh Rivera RN 08/19/21 08:02:48 [facility] IntraOp Departure from OR Audit 08/19/21 08:02:48 Radio Frequency Technician: JAZLYN Modifier: JAZLYN 1 <*> Transfer to Ambulatory unit, Phase II 1 <+> Patient Transport Accompanied by [facility] IntraOp Dressing and Packing Entry 1 Type Dressing Location OPSITE Wound Dressing Item Skin Closure Glue Applied By YULIA JIM SCRUB TECH/OCTAVIO Last Modified By: Josh Rivera RN 08/19/21 07:54:28 [facility] IntraOp Fire Risk Assessment Entry 1 Fire [...] Modified By: Josh Rivera RN 08/19/21 07:53:55 [facility] IntraOp General Case Tube Maker 1 Case Information OR OR 06 [facility] Case Level 1 Room Verified Yes Wound Class I - Clean Specialty General ASA Class 4 Diagnosis Preop Diagnosis IV Access Postop Same As Preop Yes Postop Diagnosis IV Access Last Modified By: Josh Rivera RN 08/19/21 07:58:27 [facility] IntraOp Intraoperative Assessment Entry 1 Handoff Method [...] Modified By: Josh Rivera RN 08/19/21 07:59:09 [facility] IntraOp Intraoperative Equipment Entry 1 Type Monitoring Equipment Intraop Monitoring Electrocardiogram Three lead placement (ECG) Electrode Placement Blood Pressure Non-Invasive BP Device Source Blood Pressure Arm, right upper Location Pulse Oximeter Hand, left Probe Site Antiembolic Devices Scopes Photo/Video Documentation Last Modified By: Josh Rivera RN 08/19/21 07:59:29 [facility] IntraOp Medication Admin Entry 1 Entry 2 Medication/Irrigant LIDOCAINE 1% WITH EPI Heplock 100units/ml 5ml 1:100,000 vial - [id number] Combo Med List Time Administered 08/19/21 07:59:00 08/19/21 07:59:00 Route of LOCAL HEP LOCK Administration Dose Dose 30 10 Unit of Measure ml ml Volume Administered By PEARSON, CATALINAMESHA JOHN M, MD-SUR Procedure Irrigation Irrigant Volume In Irrigant Volume Out Last Modified By: Josh Rivera RN Pantano, Scott, RN 08/19/21 08:00:16 08/19/21 08:00:16 [facility] IntraOp Patient Positioning Entry 1 Procedure Vascular [...] Modified By: Josh Rivera RN 08/19/21 07:54:11 [facility] IntraOp Sign In Entry 1 Patient, Site, [...] Modified By: Josh Rivera RN 08/19/21 08:00:24 [facility] IntraOp Sign Out Entry 1 RN Confirmation [...] Modified By: Josh Rivera RN 08/19/21 08:35:34 [facility] IntraOp Sign Out Audit 08/19/21 08:35:34 Radio Frequency Technician: JAZLYN Modifier: PANTANOS <+> 1 RN Sign Out Signature <+> 1 RN Sign Out Signature Date/Time <+> 1 Urinary Catheter Documented in IView [facility] IntraOp Skin Prep Entry 1 Procedure Vascular Access Insertion Prescribed N/A Pre-Surgical Prep Completed Prep Area CHIN THRU CHEST INCLUDE BILATERAL SHOULDERS Intraop Prep Prep Agents Chloraprep Hair Removal Last Modified By: Josh Rivera RN 08/19/21 07:58:31 [facility] IntraOp Surgical Procedures Entry 1 Procedure Vascular Access Insertion Additional (PORT A CATH PLACEMENT) Procedure Description Primary Procedure Yes Primary Surgeon NENA PEARSON MD-TATYANA Start 08/19/21 07:51:00 Stop 08/19/21 08:17:00 Anesthesia Type MAC Specialty General Wound Class I - Clean Last Modified By: Josh Rivera RN 08/19/21 08:35:09 [facility] IntraOp Surgical Procedures Audit 08/19/21 08:35:09 Radio Frequency Technician: JAZLYN Modifier: JUDITHS <+> 1 Stop [facility] IntraOp Temp Regulation Devices Entry 1 Temp Regulation Temperature Warm blankets Regulation Device Temperature Full body Regulation Site Temperature ERNESTO SOUSA APRN, Regulation Device CHURCH HISTORY PROFESSOR Applied by Last Modified By: Josh Rivera RN 08/19/21 07:54:19 [facility] IntraOP Time Out Entry 1 Procedure to [...] Modified By: Josh Rivera RN 08/19/21 08:02:27 [facility] IntraOP Time Out Audit 08/19/21 08:02:27 Radio Frequency Technician: JAZLYN Modifier: PANTANOS 1 <+> Beta Alessandra Administered 1 <*> Procedure to be Performed Vascular Access Insertion 08/19/21 08:00:58 Radio Frequency Technician: JAZLYN Modifier: PANTANOS 1 <+> All activity [...] <+> Team Verbally Confirms Information 08/19/21 08:00:32 Radio Frequency Technician: JAZLYN Modifier: PANTANOS <+> 1 Procedure to be Performed [facility] IntraOp X-Ray and Images Entry 1 X-Ray/Imaging Type Fluoroscopy Fluoroscopy Type C-Arm Site CHEST Radiologic Therapist Name David Greene, Field Pipe Lines Supervisor Protective Devices Yes Used Last Modified By: Josh Rivera RN 08/19/21 08:04:48 Case Comments <None> Finalized By: WILNER DUPONT Document Signatures Signed By: Josh Rivera RN 08/19/21 08:35 WILNER DUPONT 08/20/21 09:11 Unfinalized History Date/Time Username Reason for Unfinalizing Freetext Reason for Unfinalizing 08/20/21 09:10 PAM Correct Billing Electronically signed by Lanny [facility] Conversion Crop Farm Workers Cerner at 03/09/2023 8:49 PM CDT documented in this encounter Plan of Treatment Not on file documented as of this encounter Visit Diagnoses Not on filedocumented in this encounter Care Teams Rn Imcu Relationship Specialty Start Date End Date Reji Castro MD [address] [place] [id number] PCP - General Adolescent Medicine 10/02/22 documented as of this encounter
--- OUTSIDE RECORDS SUMMARY | 2025-05-14 10:45 | XMS_ITS | Encounter Summary ---
Author Organization [employer] Address [address] [place] [address] Care Team Providers Care Webbing Tacker Name Role Phone Reji Castro MD Primary Care Provider [phone] Encounter Details Date Type Department Care Team (Late st Contact Info) Description 08/25/2021 Transcribed Document [facility] [place] [address] [place] [address] ProviderDelvin MD [address] [place] [address] Social History Tobacco Use Types Packs/Day Years [...] than 8. she tells me that her cord splicer has recommended she stay above 8 for [...] cefTRIAXone: 2 Gram, 100 mL/Hr, IV Piggyback, [id number] diphenhydrAMINE: 25 mg, Oral, Q6H, PRN: Itching [...] Oral, BID cefTRIAXone 2 Gram, IV Piggyback, [id number] citalopram 20 mg tab 40 mg 2 [...] Bioprosthetic mitral valve replacement / SNOMED CT 963577955 / Confirmed Chronic kidney disease / SNOMED CT 3733196991 / Confirmed COPD - Chronic obstructive pulmonary disease / SNOMED CT 050048430 / Confirmed History of obstructive sleep apnea / IMO [id number] / Confirmed HLD - Hyperlipidemia / SNOMED CT 780992589 / Confirmed HTN - Hypertension / SNOMED CT 8104743382 / Confirmed Canceled: Atrial fibrillation / SNOMED CT 92323044, Active Problems (25) AIHA (autoimmune hemolytic anemia) [...] 26.5 \ Radiology Results (Last 48 hours) [id number] -- 08/11/2021 21:21 CR Chest 1 Vw [...] Hold home meds SSI Depression Celexa Pain [place] 10 mg every 6 hours as needed CODE STATUS. Full code Dispo: H/H stable, will transfuse one unit prbcs to reach goal hgb f/u trop need therapeutic inr for discharge, pharm managing Time spent 26 minutes Electronically signed by Lanny [facility] Conversion Grocery Clerk Stocking Cerner at 03/09/2023 8:51 PM CDT documented in this encounter Plan of Treatment Not on file documented as of this encounter Visit Diagnoses Not on filedocumented in this encounter Care Teams Webbing Tacker Relationship Specialty Start Date End Date Reji Castro MD [address] [place] [id number] PCP - General Adolescent Medicine 10/02/22 documented as of this encounter
--- OUTSIDE RECORDS SUMMARY | 2025-05-14 10:45 | XMS_ITS | Encounter Summary ---
Author Organization [employer] Address [address] [facility] [place] [address] Care Team Providers Care Md Pediatric Allergist Name Role Phone Reji Castro MD Primary Care Provider [phone] Encounter Details Date Type Department Care Team (Late st Contact Info) Description 08/14/2021 Transcribed Document [facility] [place] [facility] [place] [address] ProviderDelvin MD [address] [place] [address] Social History Tobacco Use Types Packs/Day Years [...] # 0.71 x10(3)/uL (Low) 08/13/2021 23:47 EDT Bartholomew % 10.6 % (High) 08/13/2021 23:47 EDT Bartholomew # 0.58 K/uL 08/13/2021 23:47 EDT Eos [...] (Low) 08/13/2021 18:40 EDT Electronically signed by [facility], [facility] Conversion Software Support Analyst Cerner at 03/09/2023 8:59 PM CDT documented in this encounter Plan of Treatment Not on file documented as of this encounter Visit Diagnoses Not on filedocumented in this encounter Care Teams Md Pediatric Allergist Relationship Specialty Start Date End Date Reji Castro MD [address] [place] [address] PCP - General Adolescent Medicine 10/02/22 documented as of this encounter
--- OUTSIDE RECORDS SUMMARY | 2025-05-14 10:45 | XMS_ITS | Encounter Summary ---
Author Organization [employer] Address [address] [place] [address] Care Team Providers Care Bathroom Tiling Professional Name Role Phone Reji Castro MD Primary Care Provider [phone] Encounter Details Date Type Department Care Team (Late st Contact Info) Description 08/19/2021 Transcribed Document [facility] [place] Family Medicine [facility] [place] [address] ProviderDelvin MD [facility] [place] [address] Social History Tobacco Use Types Packs/Day Years [...] y/o F presenting to [facility] with history of COPD, atrial fibrillation, CKD [...] cefTRIAXone: 2 Gram, 100 mL/Hr, IV Piggyback, [id number]. citalopram: 40 mg, Oral, Daily. diphenhydrAMINE: 50 [...] questions. Thank you, Andrea Moraes, PharmD PGY1 Bar [employer] Pager: [phone] Ext. [phone] Electronically signed by Stevie [facility] Conversion Mainframe Applications Developer Cerner at 03/09/2023 8:43 PM CDT documented in this encounter Plan of Treatment Not on file documented as of this encounter Visit Diagnoses Not on filedocumented in this encounter Care Teams Bathroom Tiling Professional Relationship Specialty Start Date End Date Reji Castro MD [address] [place] [address] PCP - General Adolescent Medicine 10/02/22 documented as of this encounter
--- OUTSIDE RECORDS SUMMARY | 2025-05-14 10:45 | XMS_ITS | Encounter Summary ---
Author Organization [employer] Address [address] [place] [address] Care Team Providers Care Tissue Packer Name Role Phone Reji Castro MD Primary Care Provider [phone] Encounter Details Date Type Department Care Team (Late st Contact Info) Description 08/26/2021 Transcribed Document [facility] Family Medicine [facility] [address] ProviderDelvin MD [address] [place] [address] Social History Tobacco Use Types Packs/Day Years [...] Warfarin HPI: 56 y/o F presenting to [facility] with history of COPD, atrial fibrillation, [...] 2). Daily INR Will followZeyad PharmD, BCPS [phone] Electronically signed by Lanny, [facility] Conversion Manager Software Cerner at 03/09/2023 8:52 PM CDT documented in this encounter Plan of Treatment Not on file documented as of this encounter Visit Diagnoses Not on filedocumented in this encounter Care Teams Tissue Packer Relationship Specialty Start Date End Date Reji Castro MD [address] [place] [address] PCP - General Adolescent Medicine 10/02/22 documented as of this encounter
--- OUTSIDE RECORDS SUMMARY | 2025-05-14 10:45 | XMS_ITS | Encounter Summary ---
Author Organization [employer] Address [address] [place] [address] Care Team Providers Care Miner Name Role Phone Reji Saldaña MD Primary Care Provider [phone] Encounter Details Date Type Department Care Team (Late st Contact Info) Description 08/14/2021 Transcribed Document [facility] [place] Family Medicine [address] [place], [place] [id number] [place]vin [place] [address] Social History Tobacco Use Types Packs/Day Years [...] On: 08/14/2021 16:00 EDT by ALFREDO SEQUEIRA, RN-Sr. Pricing Analyst Initial Assessment I Previously Documented Living Environment [...] Patient's Home Caregiver Medical Durable Power of Real Estate Agency Licensee Name : No Legal Guardian : No ALFREDO SEQUEIRA RN-Sr. Pricing Analyst - 08/15/2021 8:27 EDT Initial Assessment II Sensory and Motor Deficits : None Current Home Treatments and Equipment : None ALFREDO SEQUEIRA RN-Sr. Pricing Analyst - 08/15/2021 8:27 EDT Discharge Needs I Anticipated Discharge Date : 08/16/2021 EDT Anticipated Discharge To, CM : Home with home health, Home with infusion therapy Current Home Treatment/Equipment : Current Home Treatment/Equipment No qualifying data available. Post Acute/Home Treatments : None Documentation Status Complete : Yes ALFREDO SEQUEIRA RN-Sr. Pricing Analyst - 08/15/2021 8:27 EDT Discharge Needs II Professional Skilled Services : Professional Skilled Services No qualifying data available. Needs Assistance with Transportation : No Discharge Options Discussed with Patient : DME, Home Health, Short term rehabilitation ALFREDO SEQUEIRA RN-Sr. Pricing Analyst - 08/15/2021 8:27 EDT Narrative Note Historical Narrative Note : rrs low boost 5 patient was admitted for staph infection /port removal . consults to neph, surg,ID. CHUCHO negative . patient 56 years old lives alone and is independent. patient face sheet address is wrong now address is : [address] [employer]. patient denied need for dme. possible need for hh she thinks [facility] is the only one in her area. patient states she might need 4 weeks IV abx . patient is agreeable to hh and iv abx at home . cm will follow ALFREDO SEQUEIRA RN-Sr. Pricing Analyst - 08/15/21 08:39:27 Narrative Note : rrs low boost 5 patient was admitted for staph infection /port removal . consults to neph, surg,ID. CHUCHO negative . patient 56 years old lives alone and is independent. patient face sheet address is wrong now address is : [address] [employer]. patient denied need for dme. possible need for hh she thinks [facility] is the only one in her area. patient states she might need 4 weeks IV abx . patient is agreeable to hh and iv abx at home . family will transport . cm will follow HUA, ALFREDO K, RN-Sr. Pricing Analyst - 08/15/2021 8:40 EDT documented in this encounter Plan of Treatment Not on file documented as of this encounter Visit Diagnoses Not on filedocumented in this encounter Care Teams Miner Relationship Specialty Start Date End Date Reji Saldaña MD [address] [place] [address] PCP - General Adolescent Medicine 10/02/22 documented as of this encounter
--- OUTSIDE RECORDS SUMMARY | 2025-05-14 10:45 | XMS_ITS | Encounter Summary ---
Author Organization [employer] Address [address] [place] [address] Care Team Providers Care Tool Crib Supervisor Name Role Phone Reji Castro MD Primary Care Provider [phone] Encounter Details Date Type Department Care Team (Late st Contact Info) Description 08/20/2021 Transcribed Document [facility] Family Medicine [address] [place] [address] ProviderDelvin MD [address] [place] [address] Social History Tobacco Use Types Packs/Day Years [...] 08/20/2021 16:48 EDT Electronically signed by Lanny [facility] Conversion Learning Center Coordinator Cerner at 03/09/2023 8:32 PM CDT documented in this encounter Plan of Treatment Not on file documented as of this encounter Visit Diagnoses Not on filedocumented in this encounter Care Teams Tool Crib Supervisor Relationship Specialty Start Date End Date Reji Castro MD [address] [place] [address] PCP - General Adolescent Medicine 10/02/22 documented as of this encounter
--- OUTSIDE RECORDS SUMMARY | 2025-05-14 10:45 | XMS_ITS | Encounter Summary ---
Author Organization [employer] Address [address] [place] [address] Care Team Providers Care Homicide Investigator Name Role Phone Reji Castro MD Primary Care Provider [phone] Encounter Details Date Type Department Care Team (Late st Contact Info) Description 08/14/2021 Transcribed Document [facility] [place] [facility] [place] [address] ProviderDelvin MD [facility] [place] [address] Social History Tobacco Use Types Packs/Day Years [...] 56 y/o F presenting to [facility] with history of COPD, atrial [...] mg, 14 mL, 128 mL/Hr, IV Piggyback, [id number]. docusate-senna: 1 Tab, Oral, BID. famotidine: 20 [...] Encounter/Past 24 Hours) Creatinine Level 1.80 mg/dL AK 08/14/2021 07:29 Bun/Creatinine 19.4 08/14/2021 00:14 Estimated [...] questions. Thank you, Andrea Moraes, PharmD PGY1 Flat Locker Pager: [phone], Ext. [phone] Electronically signed by Lanny [facility] Conversion Dormitory Counselor Cerner at 03/09/2023 8:49 PM CDT documented in this encounter Plan of Treatment Not on file documented as of this encounter Visit Diagnoses Not on filedocumented in this encounter Care Teams Homicide Investigator Relationship Specialty Start Date End Date Reji Castro MD [address] [place] [address] PCP - General Adolescent Medicine 10/02/22 documented as of this encounter
--- OUTSIDE RECORDS SUMMARY | 2025-05-14 10:45 | XMS_ITS | Encounter Summary ---
Author Organization [employer] Address [address] [place] [address] Care Team Providers Care Ethyl Blender Name Role Phone Reji Castro MD Primary Care Provider [phone] Encounter Details Date Type Department Care Team (Late st Contact Info) Description 08/25/2021 Transcribed Document [facility] [place] Family Medicine [address] [place] [address] ProviderDelvin MD [address] [place] [address] Social History Tobacco Use Types Packs/Day Years [...] On: 08/25/2021 10:48 EDT by Porfirio Caban, Home Office Claim Specialist Cert Lead Meds to Bed Enrollment Patient Enrollment Decision: : No/do not enroll in meds to bed program Reason for Declining Meds to Bed Program: : Prefer to use home pharmacy Porfirio Caban Home Office Claim Specialist Cert Lead - 08/26/2021 11:11 EDT documented in this encounter Plan of Treatment Not on file documented as of this encounter Visit Diagnoses Not on filedocumented in this encounter Care Teams Ethyl Blender Relationship Specialty Start Date End Date Reji Castro MD [address] [place] [address] PCP - General Adolescent Medicine 10/02/22 documented as of this encounter
--- OUTSIDE RECORDS SUMMARY | 2025-05-14 10:46 | XMS_ITS | Encounter Summary ---
Author Organization [employer] Address [address] [place] [address] Care Team Providers Care Beef Boner Name Role Phone Reji Castro MD Primary Care Provider [phone] Encounter Details Date Type Department Care Team (Late st Contact Info) Description 08/16/2021 Transcribed Document [facility] Radiology [address] [place] [address] Loren Solorzano MD [address] [place] [address] [address] [place] [id number] Social History Tobacco Use Types Packs/Day Years Used Date Smoking Tobacco: Never Assessed Comments Unknown Sex and Gender Information Value Date Recorded Sex Assigned at Not on file Legal Sex Female 4:32 PM CDT Gender Identity Not on file Sexual Orientation Not on file documented as of this encounter Miscellaneous Notes * Cerner Conversion Note - Lroen Solorzano MD - 08/16/2021 1:47 PM EDT [...] mg, 14 mL, 128 mL/Hr, IV Piggyback, [id number] Dextrose 50% injection: 12.5 Gram, IV Push, [...] mL 700 mg 14 mL, IV Piggyback, [id number] famotidine 20 mg tab 20 mg 1 [...] Bioprosthetic mitral valve replacement / SNOMED CT 240709395 / Confirmed Chronic kidney disease / SNOMED CT 0617044319 / Confirmed COPD - Chronic obstructive pulmonary disease / SNOMED CT 383659633 / Confirmed History of obstructive sleep apnea / IMO 20191532 / Confirmed HLD - Hyperlipidemia / SNOMED CT 969733566 / Confirmed HTN - Hypertension / SNOMED CT 8438069227 / Confirmed Canceled: Atrial fibrillation / SNOMED CT 58298619, Active Problems (25) AIHA (autoimmune hemolytic anemia) [...] Charted Minimum Maximum Temp 98 ([facility] 10:50) 97.6 ([facility] 06:00) 98 ([facility] 18:00) Apical HR 76 ([facility] 20:32) 76 ([facility] 20:32) 76 ([facility] 20:32) Mon HR 81 ([facility] 10:50) 67 ([facility] 14:52) 85 ([facility] 18:00) Resp Rate 18 ([facility] 10:50) 14 ([facility] 23:00) 19 ([facility] 18:00) SBP 112 ([facility] 10:50) 95 ([facility] 14:52) 114 ([facility] 23:00) DBP 60 ([facility] 10:50) L 45 ([facility] 14:52) 63 ([facility] 18:00) MAP 74 ([facility] 10:50) 63 ([facility] 23:00) 83 ([facility] 18:00) SpO2 97 ([facility] 10:50) L 92 ([facility] 14:52) 99 ([facility] 03:39) General: Alert and oriented, No [...] EDT BIN HERNANDEZ, DO-INT Discontinued Medications: acetaminophen-hydrocodone ([place] 10 mg-325 mg oral tablet) 1 Tab, [...] Hold home meds SSI #Depression Celexa #Pain [place] 10 mg every 6 hours as needed [...] on filedocumented in this encounter Care Teams Beef Boner Relationship Specialty Start Date End Date Reji Castro MD [address] [place] [address] PCP - General Adolescent Medicine 10/02/22 documented as of this encounter
--- OUTSIDE RECORDS SUMMARY | 2025-05-14 10:46 | XMS_ITS | Encounter Summary ---
Author Organization [employer] Address [address] [place] [address] Care Team Providers Care Fringe Knotter Name Role Phone Reji Castro MD Primary Care Provider [phone] Encounter Details Date Type Department Care Team (Late st Contact Info) Description 08/21/2021 Transcribed Document [facility] [place] [address] [place] [address] ProviderDelvin MD [address] [place] [address] Social History Tobacco Use Types Packs/Day Years [...] on filedocumented in this encounter Care Teams Fringe Knotter Relationship Specialty Start Date End Date Reji Castro MD [address] [place] [address] PCP - General Adolescent Medicine 10/02/22 documented as of this encounter
--- OUTSIDE RECORDS SUMMARY | 2025-05-14 10:46 | XMS_ITS | Encounter Summary ---
Author Organization [employer] Address [address] [place] [address] Care Team Providers Care Associate Director Name Role Phone Reji Castro MD Primary Care Provider [phone] Encounter Details Date Type Department Care Team (Late st Contact Info) Description 08/15/2021 Transcribed Document [facility] [place] [facility] [place] [address] ProviderDelvin MD [facility] [place], [place] [address] Social History Tobacco Use Types Packs/Day Years Used Date Smoking Tobacco: Never Assessed Comments Unknown Sex and Gender Information Value Date Recorded Sex Assigned at Not on file Legal Sex Female 4:32 PM CDT Gender Identity Not on file Sexual Orientation Not on file documented as of this encounter Miscellaneous Notes * Cerner Conversion Note - Delvin ProviderMD - 08/15/2021 2:00 AM CDT Shuttlecock Feather Trimmer Details Entered On: 08/15/2021 1:25 EDT Performed [...] filedocumented in this encounter Care Teams Associate Director Relationship Specialty Start Date End Date Reji Castro MD [address] [place] [address] PCP - General Adolescent Medicine 10/02/22 documented as of this encounter
--- OUTSIDE RECORDS SUMMARY | 2025-05-14 10:46 | XMS_ITS | Encounter Summary ---
Author Organization [employer] Address [address] [place] [address] Care Team Providers Care Street Photographer Name Role Phone Reji Castro MD Primary Care Provider [phone] Encounter Details Date Type Department Care Team (Late st Contact Info) Description 08/12/2021 Transcribed Document [facility] [place] [facility] [place] [address] ProviderDelvin MD [address] [place] [address] Social History Tobacco Use Types Packs/Day Years [...] Vancomycin HPI: 56 y/o F [facility] [...] Encounter/Past 24 Hours) Creatinine Level 2.40 mg/dL [place] 08/12/2021 01:05 Bun/Creatinine 28.8 TN 08/12/2021 01:05 Est. CrCl: 35 mL/min Intake [...] questions. Thank you, Andrea Moraes, PharmD PGY1 D[employer]ler Pager: [phone], Ext. [phone] Electronically signed by Lanny, [facility] Conversion Engineering Project Designer Cerner at 03/09/2023 8:45 PM CDT documented in this encounter Plan of Treatment Not on file documented as of this encounter Visit Diagnoses Not on filedocumented in this encounter Care Teams Street Photographer Relationship Specialty Start Date End Date Reji Castro MD [address] [place] [address] PCP - General Adolescent Medicine 10/02/22 documented as of this encounter
--- OUTSIDE RECORDS SUMMARY | 2025-05-14 10:46 | XMS_ITS | Encounter Summary ---
Author Organization [employer] Address [address] [place] [address] Care Team Providers Care Fish And Game Club Manager Name Role Phone eRji Castro MD Primary Care Provider [phone] Encounter Details Date Type Department Care Team (Late st Contact Info) Description 08/16/2021 Transcribed Document [facility] [place] [facility] [place] [address] ProviderDelvin MD [address] [place] [address] Social History Tobacco Use Types Packs/Day Years [...] mL - 700 mg, IV Piggyback, Inj, [id number], infuse over 30 Minute(s), Routine Cardiovascular metoprolol [...] hrs) Last Charted Minimum Maximum Temp 98 ([facility] 10:50) 97.6 ([facility] 06:00) 98 ([facility] 18:00) Apical HR 76 ([facility] 20:32) 76 ([facility] 20:32) 76 ([facility] 20:32) Mon HR 81 (AUG 16 10:50) 67 ([facility] 14:52) 85 ([facility] 18:00) Resp Rate 18 (AUG 16 10:50) 14 (AUG 15 23:00) 19 ([facility] 18:00) SBP 112 (AUG 16 10:50) 95 ([facility] 14:52) 114 ([facility] 23:00) DBP 60 (AUG 16 10:50) L 45 ([facility] 14:52) 63 ([facility] 18:00) MAP 74 (AUG 16 10:50) 63 ([facility] 23:00) 83 ([facility] 18:00) SpO2 97 ([facility] 10:50) L 92 ([facility] 14:52) 99 (AUG 16 03:39) General: No [...] on filedocumented in this encounter Care Teams Fish And Game Club Manager Relationship Specialty Start Date End Date Reji Castro MD [address] [place] [address] PCP - General Adolescent Medicine 10/02/22 documented as of this encounter
--- OUTSIDE RECORDS SUMMARY | 2025-05-14 10:46 | XMS_ITS | Encounter Summary ---
Author Organization [employer] Address [address] [place] [address] Care Team Providers Care Plate Shear Operator Name Role Phone Reji Castro MD Primary Care Provider [phone] Encounter Details Date Type Department Care Team (Late st Contact Info) Description 08/12/2021 Transcribed Document [facility] [place] [address] [place] [address] ProviderDelvin MD [address] [place] [address] Social History Tobacco Use Types Packs/Day Years [...] On: 08/12/2021 5:00 EDT by Morelia Jose, [facility] Unit Coord Height and Weight, Routine Routine Weight Source : Standing scale Routine Weight Entry Format : [place] Routine Weight, Pounds : 223 lb Routine Weight, Ounces : 4 oz Routine Weight Calculation : 101.48 kg Height Source : Stated Height Entry Format : [place] Height, Feet : 5 ft Height, Inches : 4 Inch Clinical Height : 162.56 cm Body Surface Area (BSA), Routine : 2.05 m2 Body Mass Index (BMI), Routine : 38.4 kg/m2 Morelia Jose, Manager Management-Health Unit Coord - 08/12/2021 5:18 EDT documented in this encounter Plan of Treatment Not on file documented as of this encounter Visit Diagnoses Not on filedocumented in this encounter Care Teams Plate Shear Operator Relationship Specialty Start Date End Date Reji Castro MD [address] [place] [address] PCP - General Adolescent Medicine 10/02/22 documented as of this encounter
--- OUTSIDE RECORDS SUMMARY | 2025-05-14 10:46 | XMS_ITS | Encounter Summary ---
Author Organization [employer] Address [address] [place] [address] Care Team Providers Care Material Liaison Name Role Phone Reji Castro MD Primary Care Provider [phone] Encounter Details Date Type Department Care Team (Late st Contact Info) Description 08/21/2021 Transcribed Document [facility] Radiology [address] [place] [address] Loren Solorzano MD [address] [place] [address] [address] [place] [id number] Social History Tobacco Use Types Packs/Day Years [...] cefTRIAXone: 2 Gram, 100 mL/Hr, IV Piggyback, [id number] diphenhydrAMINE: 25 mg, Oral, Q6H, PRN: Itching [...] Oral, BID cefTRIAXone 2 Gram, IV Piggyback, [id number] citalopram 20 mg tab 40 mg 2 [...] Bioprosthetic mitral valve replacement / SNOMED CT 304960219 / Confirmed Chronic kidney disease / SNOMED CT 4529419324 / Confirmed COPD - Chronic obstructive pulmonary disease / SNOMED CT 361988321 / Confirmed History of obstructive sleep apnea / IMO 01316611 / Confirmed HLD - Hyperlipidemia / SNOMED CT 913395657 / Confirmed HTN - Hypertension / SNOMED CT 8732564992 / Confirmed Canceled: Atrial fibrillation / SNOMED CT 25275672, Active Problems (25) AIHA (autoimmune hemolytic anemia) [...] 21 06:00) 97.6 (AUG 21 06:00) 98 ([facility] 11:00) Apical HR 70 (AUG 20 20:27) 70 (AUG 20 20:27) 70 (AUG 20 20:27) Mon HR 61 (AUG 21 06:00) 61 (AUG 21 06:00) 89 ([facility] 11:00) Resp Rate 15 (AUG 21 06:00) 15 (AUG 21 06:00) 18 (AUG 20 11:00) SBP 101 (AUG 21 06:00) 95 (AUG 20 23:30) 127 ([facility] 11:00) DBP 68 (AUG 21 06:00) L 50 (AUG 20 15:00) 80 ([facility] 11:00) MAP 78 (AUG 21 06:00) 63 [...] Hold home meds SSI #Depression Celexa #Pain [place] 10 mg every 6 hours as needed Dispo: Given patient with history of multiple transfusion we will keep patient in the hospital on heparin drip and Coumadin till INR therapeutic need IV abx, at least until 09/08. Discussed with caser up. and pharmcy Time spent 25 minutes documented in this encounter Plan of Treatment Not on file documented as of this encounter Visit Diagnoses Not on filedocumented in this encounter Care Teams Material Liaison Relationship Specialty Start Date End Date Reji Castro MD [address] [place] [address] PCP - General Adolescent Medicine 10/02/22 documented as of this encounter
--- OUTSIDE RECORDS SUMMARY | 2025-05-14 10:46 | XMS_ITS | Encounter Summary ---
Author Organization [employer] Address [address] [place] [address] Care Team Providers Care Figure Model Name Role Phone Reji Castro MD Primary Care Provider [phone] Encounter Details Date Type Department Care Team (Late st Contact Info) Description 08/21/2021 Transcribed Document [facility] [place] Family Medicine [facility] [place] [address] ProviderDelvin MD [address] [place] [address] Social History Tobacco Use Types Packs/Day Years [...] cefTRIAXone: 2 Gram, 100 mL/Hr, IV Piggyback, [id number] diphenhydrAMINE: 25 mg, Oral, Q6H, PRN: Itching [...] Oral, BID cefTRIAXone 2 Gram, IV Piggyback, [id number] citalopram 20 mg tab 40 mg 2 [...] History of obstructive sleep apnea / IMO 65952253 / Confirmed Bioprosthetic mitral valve replacement / SNOMED CT 573761161 / Confirmed Chronic kidney disease / SNOMED CT 7942439219 / Confirmed COPD - Chronic obstructive pulmonary disease / SNOMED CT 032405859 / Confirmed HTN - Hypertension / SNOMED CT 6083461333 / Confirmed HLD - Hyperlipidemia / SNOMED CT 529151485 / Confirmed Amblyopia / SNOMED CT 0223001956 / Confirmed 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 / SNOMED CT 546736065 / Confirmed Myocardial infarction / SNOMED CT 27496033 / Confirmed Atrial fibrillation / SNOMED CT 62044793 / Confirmed GERD - Gastro-esophageal reflux disease / SNOMED CT 3722718852 / Confirmed Diverticulosis / SNOMED CT 4684734925 / Confirmed Hepatomegaly / SNOMED CT 842710866 / Confirmed Renal calculus / SNOMED CT 275922948 / Confirmed Ovarian cyst / SNOMED CT 073372537 / Confirmed Arthritis / SNOMED CT 8099202 / Confirmed Back pain / PNED [id number] / Confirmed Fibromyalgia / SNOMED CT 17607787 / Confirmed Restless legs syndrome / SNOMED CT 28260808 / Confirmed Diabetes mellitus type II / SNOMED CT 92070658 / Confirmed Thyroid disease / SNOMED CT 212080797 / Confirmed Edema / SNOMED CT 762894919 / Confirmed BLE neuropathy hands and feet / Confirmed frequent headache / Confirmed AIHA (autoimmune hemolytic anemia) / SNOMED CT 6855209598 / Confirmed Resolved: Bronchitis / SNOMED CT 25284996 Resolved: Bowel obstruction / SNOMED CT 274589760 Canceled: Atrial fibrillation / SNOMED CT 07510993 Canceled: Lazy eye / SNOMED CT 487355703 lazy eye blindness (left eye) Canceled: Heart failure / SNOMED CT 028959345 Canceled: Heart valve / SNOMED CT 994049239 Canceled: High blood pressure / SNOMED CT 51463524 Canceled: Hyperlipidemia / SNOMED CT 11531086 Canceled: Cardiac arrhythmia / SNOMED CT 7409973001 Canceled: COPD / SNOMED CT 53400691 Canceled: Diabetes mellitus / SNOMED CT 358043644 Canceled: Anemia, iron deficiency / SNOMED CT 299560067, Active Problems (25) AIHA (autoimmune hemolytic anemia) [...] EDT Height Source Stated Height Entry Format [place] Height/Length, GERMAN (ft) 5 ft Height/Length GERMAN 4 Inch CLINICALHEIGHT 162.56 cm Routine Weight Source Standing scale Routine Weight Entry Format [place] Routine Weight, Pounds 204 lb Routine Weight, [...] on filedocumented in this encounter Care Teams Figure Model Relationship Specialty Start Date End Date Reji Castro MD [address] [place] [address] PCP - General Adolescent Medicine 10/02/22 documented as of this encounter
--- OUTSIDE RECORDS SUMMARY | 2025-05-14 10:46 | XMS_ITS | Encounter Summary ---
Author Organization [employer] Address [address] [place] [address] Care Team Providers Care Quality Technician Name Role Phone Reji Castro MD Primary Care Provider [phone] Encounter Details Date Type Department Care Team (Late st Contact Info) Description 08/12/2021 Transcribed Document [facility] Family [place] [address] [place] [place], [place] [address] ProviderDelvin MD [address] [place] [address] Social History Tobacco Use Types Packs/Day Years [...] On: 08/12/2021 8:46 EDT by TAWNYA AVILES, WATERPROOFING MACHINE OPERATOR Bronchodilator Assessment Score, RT Pulmonary History, Bronchodilator [...] filedocumented in this encounter Care Teams Quality Technician Relationship Specialty Start Date End Date Reji Castro MD [address] [place] [address] PCP - General Adolescent Medicine 10/02/22 documented as of this encounter
--- OUTSIDE RECORDS SUMMARY | 2025-05-14 10:46 | XMS_ITS | Encounter Summary ---
Author Organization [employer] Address [address] [place] [address] Care Team Providers Care Dispatcher Service Or Work Name Role Phone Reji Castro MD Primary Care Provider [phone] Encounter Details Date Type Department Care Team (Late st Contact Info) Description 08/12/2021 Transcribed Document [facility] [place] [address] [place] [address] ProviderDelvin MD [address] [place] [address] Social History Tobacco Use Types Packs/Day Years [...] filedocumented in this encounter Care Teams Dispatcher Service Or Work Relationship Specialty Start Date End Date Reji Castro MD [address] [place] [address] PCP - General Adolescent Medicine 10/02/22 documented as of this encounter
--- OUTSIDE RECORDS SUMMARY | 2025-05-14 10:46 | XMS_ITS | Encounter Summary ---
Author Organization [employer] Address [address] [place] [address] Care Team Providers Care Flap Curer Name Role Phone Reji Castro MD Primary Care Provider [phone] Encounter Details Date Type Department Care Team (Late st Contact Info) Description 08/16/2021 Transcribed Document [facility] [place] [address] [place] [address] ProviderDelvin MD [address] [place] [address] Social History Tobacco Use Types Packs/Day Years [...] on filedocumented in this encounter Care Teams Flap Curer Relationship Specialty Start Date End Date Reji Castro MD [address] [place] [address] PCP - General Adolescent Medicine 10/02/22 documented as of this encounter
--- OUTSIDE RECORDS SUMMARY | 2025-05-14 10:46 | XMS_ITS | Encounter Summary ---
Author Organization [employer] Address [address] [place] [address] Care Team Providers Care Manager Cardiac Cath Name Role Phone Reji Castro MD Primary Care Provider [phone] Encounter Details Date Type Department Care Team (Late st Contact Info) Description 08/21/2021 Transcribed Document [facility] [place] [address] [place] [address] ProviderDelvin MD [address] [place] [address] Social History Tobacco Use Types Packs/Day Years [...] 08/21/2021 18:33 EDT Electronically signed by Lanny [facility] Conversion Special Skills Officer Cerner at 03/09/2023 8:36 PM CDT documented in this encounter Plan of Treatment Not on file documented as of this encounter Visit Diagnoses Not on filedocumented in this encounter Care Teams Manager Cardiac Cath Relationship Specialty Start Date End Date Reji Castro MD [address] [place] [address] PCP - General Adolescent Medicine 10/02/22 documented as of this encounter
--- OUTSIDE RECORDS SUMMARY | 2025-05-14 10:46 | XMS_ITS | Encounter Summary ---
Author Organization [employer] Address [address] [place] [address] Care Team Providers Care Director Of Analytical Development Name Role Phone Reji Castro MD Primary Care Provider [phone] Encounter Details Date Type Department Care Team (Late st Contact Info) Description 08/16/2021 Transcribed Document [facility] Family Medicine [address] [place] [address] ProviderDelvin MD [address] [place] [address] Social History Tobacco Use Types Packs/Day Years [...] in this encounter Care Teams Director Of Analytical Development Relationship Specialty Start Date End Date Reji Castro MD [address] [place] [address] PCP - General Adolescent Medicine 10/02/22 documented as of this encounter
--- OUTSIDE RECORDS SUMMARY | 2025-05-14 10:46 | XMS_ITS | Encounter Summary ---
Author Organization [employer] Address [address] [place] [address] Care Team Providers Care Port Steward Name Role Phone Reji Castro MD Primary Care Provider [phone] Encounter Details Date Type Department Care Team (Late st Contact Info) Description 08/21/2021 Transcribed Document [facility] [place] [facility] [place] [address] ProviderDelvin MD [facility] [place] [address] Social History Tobacco Use Types Packs/Day Years [...] her port could not be accessed. Her parquet floor layer's helper aspirated fluid from the port that was [...] antibiotics. On 08/08 she presented to a [facility] after she developed severe CHEUNG and myalgias w/o prominent fever. She was subsequently contacted and told to report to [facility] because she had + blood cutures concerning for an infected portacath +/- PVE. 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 Integumentary: Warm, [place]. Neurologic: Alert, Oriented, No focal deficits. [...] on filedocumented in this encounter Care Teams Port Steward Relationship Specialty Start Date End Date Reji Castro MD [address] [place] [address] PCP - General Adolescent Medicine 10/02/22 documented as of this encounter
--- OUTSIDE RECORDS SUMMARY | 2025-05-14 10:46 | XMS_ITS | Encounter Summary ---
Author Organization [employer] Address [address] [place] [address] Care Team Providers Care Baggage Screener Name Role Phone Reji Castro MD Primary Care Provider [phone] Encounter Details Date Type Department Care Team (Late st Contact Info) Description 08/12/2021 Transcribed Document [facility] [place] [address] [place] [address] ProviderDelvin MD [address] [place] [address] Social History Tobacco Use Types Packs/Day Years [...] Author: CHELI BEASLEY MD-CAR Basic Information Primary Parcel Post Order Clerk: Dr. Delmar Geronimo Edge Finisher: MD Nestor Chief Complaint Rule out endocarditis/h.o [...] She followed up that week with her [facility] Nurse, Dr. Thapa, who aspirated purulence from the port. 10-15 min later, she was driving home and developed fever 103, chills, headache and body aches. Presented to [facility] where she was admitted for IV ABX [...] ID evaluation. She presented for evaluation at [facility]. In the ER she was found to [...] Instructions Problem list: All Problems Amblyopia / 2930782792 / Confirmed Arthritis / 7406676 / Confirmed Atrial fibrillation / 71683618 / Confirmed AIHA (autoimmune hemolytic anemia) / 0305896794 / Confirmed Back pain / [id number] / Confirmed Bowel obstruction / 014376193 / Confirmed Bronchitis / 36024546 / Confirmed Cardiac arrhythmia / 5710054904 / Confirmed Cardiomyopathy / 732907461 / Confirmed COPD / 60172130 / Confirmed Diabetes mellitus / 078769601 / Confirmed Diabetes mellitus type II / 97858586 / Confirmed Diverticulosis / 8648837009 / Confirmed Edema / 399399524 / Confirmed Fibromyalgia / 35090419 / Confirmed frequent headache / Confirmed GERD - Gastro-esophageal reflux disease / 9765348072 / Confirmed Heart failure / 100485856 / Confirmed Heart valve / 405992643 / Confirmed Hepatomegaly / 261713033 / Confirmed High blood pressure / 51551822 / Confirmed History of obstructive sleep apnea / 44846586 / Confirmed Hyperlipidemia / 76035656 / Confirmed Anemia, iron deficiency / 343575121 / Confirmed 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 Social & Psychosocial Habits Tobacco 12/18/2013 Tobacco Use Within Last Twelve Months No Smoking Status Former smoker Years of Tobacco Use 30 Month Tobacco Last Used quit 2005 Past Medical History: Active Atrial fibrillation (45094704) Bioprosthetic mitral valve replacement (989581378) Chronic kidney disease (5163409737) COPD - Chronic obstructive pulmonary disease (264879785) HLD - Hyperlipidemia (014248766) HTN - Hypertension (8524139662) Family History: Reviewed. Non-contributory. Procedure history: Replacement, mitral valve, with cardiopulmonary bypass (38765) on 01/19/2006 at 40 Years. left jaw pin. sternotomy. hernia repair, abdominal. sigmoid colon resection. Tendon sheath incision (eg, for trigger finger) (15367). jaw surgery, left. great toe surger, left. [...] of motion, Normal strength. Integumentary: Warm, Dry, [place]. Neurologic: Alert, Oriented. Psychiatric: Cooperative, Appropriate mood & affect. Review / Management AUG 12 00:22 L 134 L 98 H 69 / H 134 3.6 29 H 2.40 \ AUG 12 00:22 \ L 8.7 / 6.7 201 / L 28.3 \ Cardiac Markers (Current Encounter/Past 24 Hours) ProBNP 766 pg/mL ME 08/12/2021 01:12 Blood Gases (Current Encounter/Past 24 Hours) No Blood Gas Results Found (Past 24 Hours) Radiology Results (Last 48 hours) [id number] -- 08/11/2021 21:21 CR Chest 1 Vw [...] admission for coagulase negative staph bacteremia Admitted [facility] 07/12, Negative CHUCHO, TTE for [...] mechanical causes of hemolysis. Obtain records from [facility]. Check haptoglobin, LDH, reticulocyte count. Continue other current CV meds. documented in this encounter Plan of Treatment Not on file documented as of this encounter Visit Diagnoses Not on filedocumented in this encounter Care Teams Baggage Screener Relationship Specialty Start Date End Date Reji Castro MD [address] [place] [address] PCP - General Adolescent Medicine 10/02/22 documented as of this encounter
--- OUTSIDE RECORDS SUMMARY | 2025-05-14 10:46 | XMS_ITS | Encounter Summary ---
Author Organization [employer] Address [address] [place] [address] Care Team Providers Care Ready Mix Truck Driver Name Role Phone Reji Castro MD Primary Care Provider [phone] Encounter Details Date Type Department Care Team (Late st Contact Info) Description 08/12/2021 Transcribed Document [facility] [place] [address] [place] [address] ProviderDelvin MD [address] [place] [address] Social History Tobacco Use Types Packs/Day Years [...] on filedocumented in this encounter Care Teams Ready Mix Truck Driver Relationship Specialty Start Date End Date Reji Castro MD [address] [place] [address] PCP - General Adolescent Medicine 10/02/22 documented as of this encounter
--- OUTSIDE RECORDS SUMMARY | 2025-05-14 10:46 | XMS_ITS | Encounter Summary ---
Author Organization [employer] Address [address] [place] [address] Care Team Providers Care Senior Scientist Name Role Phone Reji Castro MD Primary Care Provider [phone] Encounter Details Date Type Department Care Team (Late st Contact Info) Description 08/16/2021 Transcribed Document [facility] [place] [facility] [place] [address] ProviderDelvin MD [facility] [place] [address] Social History Tobacco Use Types Packs/Day Years [...] 5. Diabetes mellitus type II E11.9 6. half-way current use of anticoagulant Z79.01 At risk for central venous catheter associated infection Z91.89 Chronic kidney disease N18.9 Medical screening exam [id number] Medications Inpatient acetaminophen, 650 mg= 2 Tab, [...] failure) penicillins propafenone theophylline Electronically signed by [facility], [facility] Conversion Cmo Cerner at 03/09/2023 8:52 PM CDT documented in this encounter Plan of Treatment Not on file documented as of this encounter Visit Diagnoses Not on filedocumented in this encounter Care Teams Senior Scientist Relationship Specialty Start Date End Date Reji Castro MD [address] [place] [id number] PCP - General Adolescent Medicine 10/02/22 documented as of this encounter
--- OUTSIDE RECORDS SUMMARY | 2025-05-14 10:46 | XMS_ITS | Encounter Summary ---
Author Organization [employer] Address [address] [place] [address] Care Team Providers Care Cost Control Specialist Name Role Phone Reji Castro MD Primary Care Provider [phone] Encounter Details Date Type Department Care Team (Late st Contact Info) Description 08/16/2021 Transcribed Document [facility] [place] [facility] [place] [address] ProviderDelvin MD [address] [place] [address] Social History Tobacco Use Types Packs/Day Years [...] Bed scale Routine Weight Entry Format : [place] Routine Weight, Pounds : 190 lb Routine Weight Calculation : 86.36 kg Height Source : Stated Height Entry Format : [place] Height, Feet : 5 ft Height, Inches : 4 Inch Clinical Height : 162.56 cm Body Surface Area (BSA), Routine : 1.92 m2 Body Mass Index (BMI), Routine : 32.68 kg/m2 JULIO LUND RN-PATIENT CARE BEDSIDE NON-EXEMPT - 08/16/2021 9:18 EDT Electronically signed by Loki [employer] Conversion Chemical Process Equipment Operator Cerner at 03/09/2023 8:33 PM CDT documented in this encounter Plan of Treatment Not on file documented as of this encounter Visit Diagnoses Not on filedocumented in this encounter Care Teams Cost Control Specialist Relationship Specialty Start Date End Date Reji Castro MD [address] [place] [address] PCP - General Adolescent Medicine 10/02/22 documented as of this encounter
--- OUTSIDE RECORDS SUMMARY | 2025-05-14 10:46 | XMS_ITS | Encounter Summary ---
Author Organization [employer] Address [address] [place] [address] Care Team Providers Care Perforator Typist Name Role Phone Reji Castro MD Primary Care Provider [phone] Encounter Details Date Type Department Care Team (Late st Contact Info) Description 08/12/2021 Transcribed Document [facility] Family Medicine [place] [address] ProviderDelvin MD [place] [address] Social History Tobacco Use Types Packs/Day Years Used Date Smoking Tobacco: Never Assessed Comments Unknown Sex and Gender Information Value Date Recorded Sex Assigned at Not on file Legal Sex Female 4:32 PM CDT Gender Identity Not on file Sexual Orientation Not on file documented as of this encounter Miscellaneous Notes * Cerner Conversion Note - Delvin ProviderMD - 08/12/2021 2:00 AM CDT Childhood Teacher Details Entered On: 08/12/2021 0:22 EDT Performed [...] on filedocumented in this encounter Care Teams Perforator Typist Relationship Specialty Start Date End Date Reji Castro MD [address] [place] [address] PCP - General Adolescent Medicine 10/02/22 documented as of this encounter
--- OUTSIDE RECORDS SUMMARY | 2025-05-14 10:46 | XMS_ITS | Encounter Summary ---
Author Organization [employer] Address [address] [place] [address] Care Team Providers Care Supervisor Gate Services Name Role Phone Reji Castro MD Primary Care Provider [phone] Encounter Details Date Type Department Care Team (Late st Contact Info) Description 08/11/2021 Transcribed Document [facility] [place] [facility] [place] [address] ProviderDelvin MD [address] [place] [address] Social History Tobacco Use Types Packs/Day Years [...] you, Noy Garrett, PharmD PGY-1 Resident Pager #[phone] Electronically signed by Lanny, [facility] Conversion Adobe Layer Helper Cerner at 03/09/2023 8:57 PM CDT documented in this encounter Plan of Treatment Not on file documented as of this encounter Visit Diagnoses Not on filedocumented in this encounter Care Teams Supervisor Gate Services Relationship Specialty Start Date End Date Reji Castro MD [address] [place] [address] PCP - General Adolescent Medicine 10/02/22 documented as of this encounter
--- OUTSIDE RECORDS SUMMARY | 2025-05-14 10:46 | XMS_ITS | Encounter Summary ---
Author Organization [employer] Address [address] [place] [address] Care Team Providers Care Marine Railway Operator Name Role Phone Reji Castro MD Primary Care Provider [phone] Encounter Details Date Type Department Care Team (Late st Contact Info) Description 08/21/2021 Transcribed Document [facility] [place] [facility] [place] [address] ProviderDelvin MD [facility] [place] [address] Social History Tobacco Use Types Packs/Day Years [...] cefTRIAXone: 2 Gram, 100 mL/Hr, IV Piggyback, T43VEml. citalopram: 40 mg, Oral, Daily. diphenhydrAMINE: 50 [...] questions. Thank you, Andrea Moraes, PharmD PGY1 Dispatcher Maintenance Pager: [phone], Ext. [phone] documented in this encounter Plan of Treatment Not on file documented as of this encounter Visit Diagnoses Not on filedocumented in this encounter Care Teams Marine Railway Operator Relationship Specialty Start Date End Date Reji Castro MD [address] [place] [address] PCP - General Adolescent Medicine 10/02/22 documented as of this encounter
--- OUTSIDE RECORDS SUMMARY | 2025-05-14 10:46 | XMS_ITS | Encounter Summary ---
Author Organization [employer] Address [address] [place] [address] Care Team Providers Care Pharmacology Teacher Name Role Phone Reji Castro MD Primary Care Provider [phone] Encounter Details Date Type Department Care Team (Late st Contact Info) Description 08/16/2021 Transcribed Document [facility] [place] [facility] [place] [address] ProviderDelvin MD [address] [place] [address] Social History Tobacco Use Types Packs/Day Years [...] HPI: 56 y/o F presenting to [facility] with history of COPD, atrial fibrillation, [...] mg, 14 mL, 128 mL/Hr, IV Piggyback, Q32FKzh. diphenhydrAMINE: 25 mg, Oral, Q6H, PRN: Itching. [...] questions. Thank you, Andrea Moraes, GwendolynD PGY1 Manufacturing Baker Pager: [phone], Ext. [phone] documented in this encounter Plan of Treatment Not on file documented as of this encounter Visit Diagnoses Not on filedocumented in this encounter Care Teams Pharmacology Teacher Relationship Specialty Start Date End Date Reji Castro MD [address] [place] [id number] PCP - General Adolescent Medicine 10/02/22 documented as of this encounter
--- OUTSIDE RECORDS SUMMARY | 2025-05-14 10:46 | XMS_ITS | Encounter Summary ---
Author Organization [employer] Address [address] [place] [address] Care Team Providers Care Glass Novelty Maker Name Role Phone Reji Castro MD Primary Care Provider [phone] Encounter Details Date Type Department Care Team (Late st Contact Info) Description 08/12/2021 Transcribed Document [facility] [place] Family Medicine [address] [place] [address] ProviderDelvin MD [address] [place] [address] Social History Tobacco Use Types Packs/Day Years [...] Health Plan: [employer] PPO Policy Number: [id number] Authorization Number: Insurance 2 Health Plan: [place] Policy Number: [id number] Authorization Number: Insurance Primary Name : [employer] PPO Policy Number: [id number] Authorization Status-Primary : Awaiting callback Reference Number-Primary : Pend ref #[id number] Authorized Service Begin Date-Primary : 08/11/2021 EDT Authorization Comments-Primary : Pend ref no per Availity, reviewer has access to [employer]ner Historical Authorization Comments-Primary : No Authorization Comments Found JORGE VALLES, RN - 08/12/2021 14:07 EDT Electronically signed by Loki Ca Conversion Roads [employer] Parking Lots Sweeper Operator Marisa at 03/09/2023 9:00 PM CDT documented in this encounter Plan of Treatment Not on file documented as of this encounter Visit Diagnoses Not on filedocumented in this encounter Care Teams Glass Novelty Maker Relationship Specialty Start Date End Date Reji Castro MD [address] [place] [id number] PCP - General Adolescent Medicine 10/02/22 documented as of this encounter
--- OUTSIDE RECORDS SUMMARY | 2025-05-14 10:46 | XMS_ITS | Encounter Summary ---
Author Organization [employer] Address [address] [place] [address] Care Team Providers Care Collaborating Supervising Physician Name Role Phone Reji Castro MD Primary Care Provider [phone] Encounter Details Date Type Department Care Team (Late st Contact Info) Description 08/16/2021 Transcribed Document [facility] [place] [address] [place] [address] ProviderDelvin MD [facility] [place], [place] [address] Social History Tobacco Use Types Packs/Day Years Used Date Smoking Tobacco: Never Assessed Comments Unknown Sex and Gender Information Value Date Recorded Sex Assigned at Not on file Legal Sex Female 4:32 PM CDT Gender Identity Not on file Sexual Orientation Not on file documented as of this encounter Miscellaneous Notes * Cerner Conversion Note - Delvin ProviderMD - 08/16/2021 2:00 AM CDT Lead Janitor Details Entered On: 08/16/2021 2:41 EDT Performed [...] on filedocumented in this encounter Care Teams Collaborating Supervising Physician Relationship Specialty Start Date End Date Reji Castro MD [address] [place] [address] PCP - General Adolescent Medicine 10/02/22 documented as of this encounter
--- OUTSIDE RECORDS SUMMARY | 2025-05-14 10:46 | XMS_ITS | Encounter Summary ---
Author Organization [employer] Address [address] [place] [address] Care Team Providers Care National Sales Trainer Name Role Phone Reji Castro MD Primary Care Provider [phone] Encounter Details Date Type Department Care Team (Late st Contact Info) Description 08/21/2021 Transcribed Document [facility] [place] [address] ProviderDelvin MD [address] [place] [address] Social History Tobacco Use Types Packs/Day Years [...] 15:08 EDT by MADINA LOVETT, JEREMIAH - Ground Instructor AdvancedHoneycomb Decapper Progress Note Discharge Arrangements : Patient Post-Acute [...] Rounds? : Yes MADINA LOVETT RN - Ground Instructor Advanced - 08/21/2021 15:08 EDT Narrative Progress Note Narrative Progress Note : RRS Low Boost 5 Day 08/29 Patient was admitted for staph infection and port removal. She had a new port placed on 08/19. Patient needs to remain inpatient until her coumadin is at therapeutic level per MD in [facility]. Patient will need IV rocephin until 09/08. CM faxed the order to Urszula with [facility]. CM also faxed order for home health to [facility] which the patient states she has used [...] is at a therapeutic level per at [facility]. Patient will need IV rocephin until 09/08. Patient will need home health and says she has used [facility] in the past. CM will refer her to them after final antibiotic order is placed. DCP: home with home health MADINA LOVETT RN - Ground Instructor Advanced - 08/20/21 13:35:46 RRS Low Boost 5 [...] will need home health and lvies in [place]. [facility] home [facility] is a possibility. MADINA LOVETT RN - Ground Instructor Advanced - 08/19/21 15:40:22 RRS Low Boost 5 [...] will need home health and lives in [place]. [facility] home [facility] is a possibility. CM will continue to follow. DCP: MADINA LOVETT, RN - Ground Instructor Advanced - 08/18/21 15:47:49 (late entry from 08/15-) [...] and send referrals as appropriate. JULIO STEWART, RN-Ground Instructor Advanced ED - 08/18/21 10:38:39 MADINA LOVETT, JEREMIAH - Ground Instructor Advanced - 08/21/2021 15:08 EDT documented in this encounter Plan of Treatment Not on file documented as of this encounter Visit Diagnoses Not on filedocumented in this encounter Care Teams National Sales Trainer Relationship Specialty Start Date End Date Reji Castro MD [address] [place] [id number] PCP - General Adolescent Medicine 10/02/22 documented as of this encounter
--- OUTSIDE RECORDS SUMMARY | 2025-05-14 10:46 | XMS_ITS | Encounter Summary ---
Author Organization [employer] Address [address] [place] [address] Care Team Providers Care Furnace Tender Name Role Phone Reji Castro MD Primary Care Provider [phone] Encounter Details Date Type Department Care Team (Late st Contact Info) Description 08/21/2021 Transcribed Document [facility] Family Medicine [facility] [place] [address] ProviderDelvin MD [facility] [place] [address] Social History Tobacco Use Types Packs/Day Years Used Date Smoking Tobacco: Never Assessed Comments Unknown Sex and Gender Information Value Date Recorded Sex Assigned at Not on file Legal Sex Female 4:32 PM CDT Gender Identity Not on file Sexual Orientation Not on file documented as of this encounter Miscellaneous Notes * Cerner Conversion Note - Delvin ProviderMD - 08/21/2021 2:00 AM CDT Bsa/Aml Compliance Officer Details Entered On: 08/21/2021 6:32 EDT [...] on filedocumented in this encounter Care Teams Furnace Tender Relationship Specialty Start Date End Date Reji Castro MD [address] [place] [address] PCP - General Adolescent Medicine 10/02/22 documented as of this encounter
--- OUTSIDE RECORDS SUMMARY | 2025-05-14 10:46 | XMS_ITS | Encounter Summary ---
Author Organization [employer] Address [address] [place] [address] Care Team Providers Care Sisal Operator Name Role Phone Reji Castro MD Primary Care Provider [phone] Encounter Details Date Type Department Care Team (Late st Contact Info) Description 08/11/2021 Transcribed Document [facility] [place] Family Medicine [address] [place] [address] ProviderDelvin MD [address] [place] [address] Social History Tobacco Use Types Packs/Day Years Used Date Smoking Tobacco: Never Assessed Comments Unknown Sex and Gender Information Value Date Recorded Sex Assigned at Not on file Legal Sex Female 4:32 PM CDT Gender Identity Not on file Sexual Orientation Not on file documented as of this encounter Miscellaneous Notes * Cerner Conversion Note - Delvin ProviderMD - 08/11/2021 4:16 PM CDT [place] Suicide Severity Rating Scale (C-SSRS) Entered On: 08/11/2021 18:49 EDT Performed On: 08/11/2021 18:46 EDT by MARIPOSA JACQUES RN [place] Suicide Severity Rating Scale (C-SSRS) CSSRS Past [...] on filedocumented in this encounter Care Teams Sisal Operator Relationship Specialty Start Date End Date Reji Castro MD [address] [place] [address] PCP - General Adolescent Medicine 10/02/22 documented as of this encounter
--- OUTSIDE RECORDS SUMMARY | 2025-05-14 10:46 | XMS_ITS | Encounter Summary ---
Author Organization [employer] Address [address] [place] [address] Care Team Providers Care Staff Nurse Icu Resource Team Name Role Phone Reji Castro MD Primary Care Provider [phone] Encounter Details Date Type Department Care Team (Late st Contact Info) Description 08/12/2021 Transcribed Document [facility] [place] [facility] [place] [address] ProviderDelvin MD [address] [place] [address] Social History Tobacco Use Types Packs/Day Years [...] on filedocumented in this encounter Care Teams Staff Nurse Icu Resource Team Relationship Specialty Start Date End Date Reji Castro MD [address] [place] [address] PCP - General Adolescent Medicine 10/02/22 documented as of this encounter
--- OUTSIDE RECORDS SUMMARY | 2025-05-14 10:46 | XMS_ITS | Encounter Summary ---
Author Organization [employer] Address [address] [place] [address] Care Team Providers Care Product Handler Name Role Phone Reij Castro MD Primary Care Provider [phone] Encounter Details Date Type Department Care Team (Late st Contact Info) Description 08/11/2021 Transcribed Document [facility] [place] [facility] [place] [address] ProviderDelvin MD [address] [place] [address] Social History Tobacco Use Types Packs/Day Years [...] 08/12/2021 9:31 EDT Electronically signed by Lanny [facility] Conversion Senior Java J2Ee Developer Cerner at 03/09/2023 9:00 PM CDT documented in this encounter Plan of Treatment Not on file documented as of this encounter Visit Diagnoses Not on filedocumented in this encounter Care Teams Product Handler Relationship Specialty Start Date End Date Reji Castro MD [address] [place] [address] PCP - General Adolescent Medicine 10/02/22 documented as of this encounter
--- OUTSIDE RECORDS SUMMARY | 2025-05-14 10:47 | XMS_ITS | Encounter Summary ---
Author Organization [employer] [facility] [employer] Address [address] [place] [address] Care Team Providers Care Plastic Parts Fabricator Name Role Phone Reji Castro MD Primary Care Provider [phone] Encounter Details Date Type Department Care Team (Late st Contact Info) Description 08/22/2021 Transcribed Document [facility] [place] [address] [place] [address] ProviderDelvin MD [address] [place] [address] Social History Tobacco Use Types Packs/Day Years [...] 15:27 EDT by MADINA LOVETT, JEREMIAH - Type Copy ExaminerPatient Scheduling Manager Progress Note Discharge Arrangements : Patient Post-Acute [...] Rounds? : Yes MADINA LOVETT RN - Type Copy Examiner - 08/22/2021 15:27 EDT Narrative Progress Note [...] also faxed order for home health to [facility] which the patient states she has used before. Patient will probably not be ready for discharge until early next week per MDR. DCP: home with home health MADINA LOVETT RN - Type Copy Examiner - 08/21/21 15:11:24 RRS Low Boost 5 Day 07/30 Patient was admitted for staph infection and port removal. She had a new port placed on 08/19. Patient needs to remain inpatient until her coumadin is at a therapeutic level per at [facility]. Patient will need IV rocephin until 09/08. Patient will need home health and says she has used [email or web address] in the past. CM will refer her to them after final antibiotic order is placed. DCP: home with home health MADINA LOVETT RN - Type Copy Examiner - 08/20/21 13:35:46 RRS Low Boost 5 [...] will need home health and lvies in [place]. [facility] is a possibility. MADINA LOVETT RN - Type Copy Examiner - 08/19/21 15:40:22 RRS Low Boost 5 [...] will need home health and lives in [place]. [facility] is a possibility. CM will continue to follow. DCP: MADINA LOVETT RN - Type Copy Examiner - 08/18/21 15:47:49 (late entry from 08/15-) [...] and send referrals as appropriate. JULIO STEWART, JEREMIAH-Type Copy Examiner ED - 08/18/21 10:38:39 MADINA LOVETT RN - Type Copy Examiner - 08/22/2021 15:27 EDT documented in this encounter Plan of Treatment Not on file documented as of this encounter Visit Diagnoses Not on filedocumented in this encounter Care Teams Plastic Parts Fabricator Relationship Specialty Start Date End Date Reji Castro MD [address] [place] [id number] PCP - General Adolescent Medicine 10/02/22 documented as of this encounter
--- OUTSIDE RECORDS SUMMARY | 2025-05-14 10:47 | XMS_ITS | Encounter Summary ---
Author Organization [employer] Address [address] [place] [address] Care Team Providers Care Fingernail Sculpturer Name Role Phone Reji Castro MD Primary Care Provider [phone] Encounter Details Date Type Department Care Team (Late st Contact Info) Description 08/15/2021 Transcribed Document [facility] [place] [address] [place] [address] ProviderDelvin MD [address] [place] [address] Social History Tobacco Use Types Packs/Day Years [...] on filedocumented in this encounter Care Teams Fingernail Sculpturer Relationship Specialty Start Date End Date Reji Castro MD [address] [place] [id number] PCP - General Adolescent Medicine 10/02/22 documented as of this encounter
--- OUTSIDE RECORDS SUMMARY | 2025-05-14 10:47 | XMS_ITS | Encounter Summary ---
Author Organization [employer] [facility] [employer] Address [address] [place] [address] Care Team Providers Care Applied Behavior Science Specialist Name Role Phone Reji Castro MD Primary Care Provider [phone] Encounter Details Date Type Department Care Team (Late st Contact Info) Description 08/13/2021 Transcribed Document [facility] [place] [facility] [place] [address] ProviderDelvin MD [address] [place] [id number] Social History Tobacco Use Types Packs/Day Years [...] III. Patient follows with Dr gonzáles in [place]. She has hx of obstructive uropathy with [...] # 0.62 x10(3)/uL (Low) 08/13/2021 05:19 EDT Bucks % 9.5 % (High) 08/13/2021 05:19 EDT Bucks # 0.52 K/uL 08/13/2021 05:19 EDT Eos [...] 08/13/2021 05:19 EDT Electronically signed by Lanny [facility] Conversion Research Quality Assurance Specialist Cerner at 03/09/2023 9:02 PM CDT documented in this encounter Plan of Treatment Not on file documented as of this encounter Visit Diagnoses Not on filedocumented in this encounter Care Teams Applied Behavior Science Specialist Relationship Specialty Start Date End Date Reji Castro MD [address] [place] [id number] PCP - General Adolescent Medicine 10/02/22 documented as of this encounter
--- OUTSIDE RECORDS SUMMARY | 2025-05-14 10:47 | XMS_ITS | Encounter Summary ---
Author Organization [employer] [facility] [employer] Address [address] [place] [address] Care Team Providers Care Software Technician Name Role Phone Reji Castro MD Primary Care Provider + [phone] Encounter Details Date Type Department Care Team (Late st Contact Info) Description 08/27/2021 Transcribed Document [facility] [place] [address] [place], [place] [id number] ProviderDelvin MD [address] [place] [address] Social History Tobacco Use Types Packs/Day Years [...] cefTRIAXone: 2 Gram, 100 mL/Hr, IV Piggyback, [id number] diphenhydrAMINE: 25 mg, Oral, Q6H, PRN: Itching [...] 2 g injection: 2 Gram, IV Piggyback, [id number], 0 Refill(s) cefdinir 300 mg oral capsule: [...] Oral, BID cefTRIAXone 2 Gram, IV Piggyback, [id number] citalopram 20 mg tab 40 mg 2 [...] Bioprosthetic mitral valve replacement / SNOMED CT 941906427 / Confirmed Chronic kidney disease / SNOMED CT 1518639265 / Confirmed COPD - Chronic obstructive pulmonary disease / SNOMED CT 822369659 / Confirmed History of obstructive sleep apnea / IMO 57128873 / Confirmed HLD - Hyperlipidemia / SNOMED CT 380907947 / Confirmed HTN - Hypertension / SNOMED CT 4464555781 / Confirmed Canceled: Atrial fibrillation / SNOMED CT 72918791, Active Problems (25) AIHA (autoimmune hemolytic anemia) [...] filedocumented in this encounter Care Teams Software Technician Relationship Specialty Start Date End Date Reji Castro MD [address] [place] [address] PCP - General Adolescent Medicine 10/02/22 documented as of this encounter
--- OUTSIDE RECORDS SUMMARY | 2025-05-14 10:47 | XMS_ITS | Encounter Summary ---
Author Organization [employer] Address [address] [place] [address] Care Team Providers Care Paper Cone Drying Machine Operator Name Role Phone Reji Castro MD Primary Care Provider [phone] Encounter Details Date Type Department Care Team (Late st Contact Info) Description 08/27/2021 Transcribed Document [facility] [place] Family Medicine [address] [place] [address] ProviderDelvin MD [address] [place] [address] Social History Tobacco Use Types Packs/Day Years [...] On: 08/27/2021 10:31 EDT by Sallie Solorzano RN-MZL [employer] Stroke/Warfarin Instructions Stroke/TIA Discharge Ins : N/A Sallie Solorzano RN-MZL [employer] - 08/27/2021 10:34 EDT Warfarin Discharge Ins : Open Sallie Solorzano RN-MZL [employer] - 08/27/2021 10:31 EDT Warfarin Discharge Instructions Physician to Manage Warfarin : Sallie Tavarez RN-MZL [employer] - 08/27/2021 10:34 EDT Indication for Warfarin Anticoagulation : Atrial fibrillation Warfarin Anticoagulation Disposition : Continuation of pre-hospital treatment Duration Warfarin Therapy, Fdc Duration Warfarin Therapy, Fdc : Yes Target INR : 2.5 - 3.5 Last INR Result : INR: 1.3 (High), Reference Range: (0.9 - 1.2), 08/20/2021 7:38 AM Notify Provider of Signs/Symptoms of : Significant bleeding, Clot Warfarin Dose/Frequency : 6 mg daily Sallie Solorzano RN-MZL [employer] - 08/27/2021 10:31 EDT Education Topics: Anticoagulant [...] : Tod Sawyer to manage Sallie Solorzano RN-MZL [employer] - 08/27/2021 10:34 EDT documented in this encounter Plan of Treatment Not on file documented as of this encounter Visit Diagnoses Not on filedocumented in this encounter Care Teams Paper Cone Drying Machine Operator Relationship Specialty Start Date End Date Reji Castro MD [address] [place] [id number] PCP - General Adolescent Medicine 10/02/22 documented as of this encounter
--- OUTSIDE RECORDS SUMMARY | 2025-05-14 10:47 | XMS_ITS | Encounter Summary ---
Author Organization [employer] Address [address] [place] [address] Care Team Providers Care Crew Clerk Name Role Phone Reji Castro MD Primary Care Provider [phone] Encounter Details Date Type Department Care Team (Late st Contact Info) Description 08/18/2021 Transcribed Document [facility] Radiology [address] [place] [address] Loren Solorzano MD [address] [place] [address] [address] [place] [id number] Social History Tobacco Use Types Packs/Day Years [...] Bioprosthetic mitral valve replacement / SNOMED CT 582493638 / Confirmed Chronic kidney disease / SNOMED CT 8968123096 / Confirmed COPD - Chronic obstructive pulmonary disease / SNOMED CT 058630234 / Confirmed History of obstructive sleep apnea / IMO 29566536 / Confirmed HLD - Hyperlipidemia / SNOMED CT 748541201 / Confirmed HTN - Hypertension / SNOMED CT 1104304813 / Confirmed Canceled: Atrial fibrillation / SNOMED CT 24539246, Active Problems (25) AIHA (autoimmune hemolytic anemia) [...] Apical HR 75 (AUG 17 20:10) 75 ([facility] 20:10) 75 ([facility] 20:10) Mon HR 63 (AUG 18 06:) 63 (AUG 18 06:) 84 (AUG 17 18:12) Resp Rate 18 (AUG 18:) 16 (AUG 17:) 18 (AUG 18 06:29) SBP 105 (AUG 18 06:) 101 (AUG 17 22:) 107 ([facility] 02:02) DBP L 53 (AUG 18:) L 45 (AUG 17 18:12) 61 (AUG 17:) MAP 77 (AUG 18 06:29) 70 ([facility] 18:12) 78 ([facility] 22:27) SpO2 95 (AUG 18 06:29) L [...] 50 mL 700 mg, IV Piggyback, Inj, V96HBqh, infuse over 30 Minute(s), Routine, Start 08/14/21 [...] Hold home meds SSI #Depression Celexa #Pain Deal 10 mg every 6 hours as needed [...] on filedocumented in this encounter Care Teams Crew Clerk Relationship Specialty Start Date End Date Reji Castro MD [address] [place] [id number] PCP - General Adolescent Medicine 10/02/22 documented as of this encounter
--- OUTSIDE RECORDS SUMMARY | 2025-05-14 10:47 | XMS_ITS | Encounter Summary ---
Author Organization [facility] Address [address] [place] [address] Care Team Providers Care Veterinary Dentist Name Role Phone Anna Marie Savage MD Primary Care Provider [phone] Reji Castro MD Primary Care Provider [phone] Encounter Details Date Type Department Care Team (Late st Contact Info) Description 10/05/2022 Orders Only External Location [address] [place] [address] Provider, External Social History Tobacco Use Types [...] filedocumented in this encounter Care Teams Veterinary Dentist Relationship Specialty Start Date End Date Anna Marie Savage MD [address] [place] [id number] PCP - General 04/04/21 12/07/23 Reji Castro MD [address] [facility] [address] [place] [address] PCP - General Internal Medicine 12/08/23 documented as of this encounter
--- OUTSIDE RECORDS SUMMARY | 2025-05-14 10:47 | XMS_ITS | Encounter Summary ---
Author Organization [employer] Address [address] [place] [address] Care Team Providers Care Test Architect Name Role Phone Reji Castro MD Primary Care Provider [phone] Encounter Details Date Type Department Care Team (Late st Contact Info) Description 08/27/2021 Transcribed Document [facility] [place] [address] [place] [address] ProviderDelvin MD [address] [place] [address] Social History Tobacco Use Types Packs/Day Years [...] On: 08/27/2021 12:50 EDT by STEVEN MENDES sixth grade teacher Documentation Patient Disposition, General : Discharge Discharge To : Home with ambulatory/outpatient follow-up Education Comment : poc, meds, safety STEVEN MENDES RN - 08/27/2021 12:50 EDT Electronically signed by Lanny [facility] Conversion Finish Production Manager Marisa at 03/09/2023 8:58 PM CDT documented in this encounter Plan of Treatment Not on file documented as of this encounter Visit Diagnoses Not on filedocumented in this encounter Care Teams Test Architect Relationship Specialty Start Date End Date Reji Castro MD [address] [place] [address] PCP - General Adolescent Medicine 10/02/22 documented as of this encounter
--- OUTSIDE RECORDS SUMMARY | 2025-05-14 10:47 | XMS_ITS | Encounter Summary ---
Author Organization [employer] Address [address] [place] [address] Care Team Providers Care Correctional Medicine Physician Name Role Phone Reji Castro MD Primary Care Provider [phone] Encounter Details Date Type Department Care Team (Late st Contact Info) Description 08/13/2021 Transcribed Document [facility] [place] [address] [place] [address] ProviderDelvin MD [address] [place] [address] Social History Tobacco Use Types Packs/Day Years [...] on filedocumented in this encounter Care Teams Correctional Medicine Physician Relationship Specialty Start Date End Date Reji Castro MD [address] [place] [address] PCP - General Adolescent Medicine 10/02/22 documented as of this encounter
--- OUTSIDE RECORDS SUMMARY | 2025-05-14 10:47 | XMS_ITS | Encounter Summary ---
Author Organization [employer] Address [address] [place] [address] Care Team Providers Care Utilities And Maintenance Supervisor Name Role Phone Reji Castro MD Primary Care Provider [phone] Encounter Details Date Type Department Care Team (Late st Contact Info) Description 08/27/2021 Transcribed Document [facility] [place] [address] [place] [address] ProviderDelvin MD [address] [place] [address] Social History Tobacco Use Types Packs/Day Years [...] on filedocumented in this encounter Care Teams Utilities And Maintenance Supervisor Relationship Specialty Start Date End Date Reji Castro MD [address] [place] [id number] PCP - General Adolescent Medicine 10/02/22 documented as of this encounter
--- OUTSIDE RECORDS SUMMARY | 2025-05-14 10:47 | XMS_ITS | Encounter Summary ---
Author Organization [employer] [facility] [employer] Address [address] [place] [address] Care Team Providers Care Salesperson Terrazzo Tiles Name Role Phone Reji Castro MD Primary Care Provider [phone] Encounter Details Date Type Department Care Team (Late st Contact Info) Description 08/22/2021 Transcribed Document [place] Family Medicine [address] [place], [place] [id number] ProviderDelvin MD [address] [place] [address] Social History Tobacco Use Types Packs/Day Years [...] 08/22/2021 8:20 EDT by Lamar Sheppard Diet Petrographer Nutrition Assessment Nutrition Assessment Reason : Other: Lamar Gay Diet Petrographer - 08/22/2021 8:20 EDT Nutrition Recommendations Dietitian [...] reported. No nutrition dx at this time. agriculture laboratory technician to rescreen in 7-10 days. Lamar Sheppard, Diet Petrographer - 08/22/2021 12:04 EDT Electronically signed by Lanny [facility] Conversion Flight Deck Officer Cerner at 03/09/2023 8:41 PM CDT documented in this encounter Plan of Treatment Not on file documented as of this encounter Visit Diagnoses Not on filedocumented in this encounter Care Teams Salesperson Terrazzo Tiles Relationship Specialty Start Date End Date Reji Castro MD [address] [place] [id number] PCP - General Adolescent Medicine 10/02/22 documented as of this encounter
--- OUTSIDE RECORDS SUMMARY | 2025-05-14 10:47 | XMS_ITS | Encounter Summary ---
Author Organization [employer] Address [address] [place] [address] Care Team Providers Care Cement Sack Breaker Name Role Phone Reji Castro MD Primary Care Provider [phone] Encounter Details Date Type Department Care Team (Late st Contact Info) Description 08/27/2021 Transcribed Document [facility] [place] [address] [place] [address] ProviderDelvin MD [address] [place] [address] Social History Tobacco Use Types Packs/Day Years [...] implanted port has two main parts: ??? [place]. The reservoir is the part where a [...] water are not available, use alcohol-based hand hvac operations technician. ? Change your dressing as told by [...] provider. Document Revised: 03/01/2020 Document Reviewed: 12/11/2017 [employer] Patient Education ? 2020 [employer]. Cardiovascular Atrial Fibrillation Atrial fibrillation is a [...] signals of the heart. ??? An ambulatory window shade ring coverer to record your heart's activity for a [...] provider. Document Revised: 05/01/2020 Document Reviewed: 05/01/2020 [employer] Patient Education ? 2020 [employer]. Caregiving Implanted Port Home Guide An implanted [...] implanted port has two main parts: ??? [place]. The reservoir is the part where a [...] water are not available, use alcohol-based hand hvac operations technician. ? Change your dressing as told by [...] provider. Document Revised: 03/01/2020 Document Reviewed: 12/11/2017 [employer] Patient Education ? 2020 [employer]. Endocrinology Diabetes Mellitus and Nutrition, Adult [...] Berries. Apples. Oranges. Peaches. Apricots. Plums. Grapes. [place]. Papaya. Pomegranate. Kiwi. Cherries. Vegetables Lettuce. Spinach. Leafy greens, including kale, chard, yanira greens, and mustard greens. Beets. Cauliflower. Cabbage. Broccoli. Carrots. Green beans. Tomatoes. Peppers. Onions. Cucumbers. [place] sprouts. Grains Whole grains, such as whole-wheat [...] Do I need to meet with a software educator? Do I need to meet with a dietitian? What number can I call if I have questions? When are the best times to check my blood glucose? Where to find more information: ??? [place] Diabetes Association: diabetes.org ??? Academy of Nutrition and Dietetics: www.eatright.org ??? National [place] of Diabetes and Digestive and Kidney Diseases: [...] provider. Document Revised: 10/15/2020 Document Reviewed: 10/15/2020 [employer] Patient Education ? 2020 [employer] Hematology Warfarin Coagulopathy Warfarin coagulopathy refers [...] stopping any new medicines. Many prescription and hozv-jys-libdequ medicines can interfere with warfarin. This includes ujps-ryk-pukrbaa vitamins, dietary supplements, herbal medicines, and pain [...] that you work with a diet and nutrition associate (dietitian). ??? Vitamin K makes warfarin less [...] Preventing bleeding and injury ??? Some common faik-epq-prztbei medicines and supplements may increase the risk [...] diet. ??? You start or stop any kprb-pxc-nmessxc medicine, prescription medicine, or dietary supplement. ??? [...] provider. Document Revised: 10/21/2018 Document Reviewed: 01/26/2018 [employer] Patient Education ? 2020 [employer] Infectious Disease Bacteremia, Adult Bacteremia is [...] these instructions at home: Medicines ??? Take nlmm-wvb-lasjdlx and prescription medicines only as told by [...] and water are not available, use hand hvac operations technician. ??? You should wash your hands: ? [...] care provider. ??? Practice good oral hygiene. [place] your teeth two times a day, and [...] provider. Document Revised: 03/29/2020 Document Reviewed: 03/29/2020 [employer] Patient Education ? 2020 [employer]. Nephrology Acute Kidney Injury, Adult Acute kidney [...] these instructions at home: Medicines ??? Take bsda-sny-fgzirnl and prescription medicines only as told by [...] important. Where to find more information ??? [place] Association of Kidney Patients: www.aakp.org ??? National Kidney Foundation: www.kidney.org ??? [place] Kidney Fund: www.akfinc.org ??? [employer] Rehabilitation [...] provider. Document Revised: 09/17/2020 Document Reviewed: 09/17/2020 [employer] Patient Education ? 2020 [employer]. Chronic Kidney Disease, Adult Chronic kidney disease [...] these instructions at home: Medicines ??? Take tfgk-roc-zuifbzx and prescription medicines only as told by [...] provider. Document Revised: 10/21/2018 Document Reviewed: 12/13/2017 [employer] Patient Education ? 2020 [employer]. Pharmacology Vitamin K Foods and Warfarin Warfarin [...] before making changes. ??? Work with a nutrition associate (dietitian) to develop a meal plan that works best for you. What foods are high in vitamin K? Foods that are high in vitamin K contain more than 100 mcg (micrograms) per serving. These include: ??? Broccoli (cooked from fresh) ? ? cup (78 g) has 110 mcg. ??? [place] sprouts (cooked from fresh) ? ? cup [...] cup (90 g) has 444 mcg. ??? Icelandic chard (cooked from fresh) ? ? cup [...] cup (54 g) has 8 mcg. ??? [place] with peel (raw) ? ? cup (52 g) has 9 mcg. ??? Grapes ? ? cup (76 g) has 12 mcg. ??? [place] ? 1 medium (207 g) has 9 [...] provider. Document Revised: 08/27/2020 Document Reviewed: 08/27/2020 [employer] Patient Education ? 2020 [employer]. Aspirin and Your Heart Aspirin is [...] The two forms of aspirin are: ? Hoq-fyumwjy-xeytcg.This type of aspirin does not have a coating and is absorbed quickly. This type of aspirin also comes in a chewable form. ? Enteric-coated. This type of aspirin has a coating that releases the medicine very slowly. Enteric-coated aspirin might cause less stomach upset than njl-udghxhf-ykzobu aspirin. This type of aspirin should not [...] these instructions at home Medicines ??? Take dwpw-ucv-bperyki and prescription medicines only as told by [...] Where to find more information ??? The [place] Heart Association: www.heart.org Contact a health care [...] on filedocumented in this encounter Care Teams Cement Sack Breaker Relationship Specialty Start Date End Date Reji Castro MD [address] [place] [id number] PCP - General Adolescent Medicine 10/02/22 documented as of this encounter
--- OUTSIDE RECORDS SUMMARY | 2025-05-14 10:47 | XMS_ITS | Encounter Summary ---
Author Organization [employer] Address [address] [place] [address] Care Team Providers Care Student Life Advisor Name Role Phone Reji Castro MD Primary Care Provider [phone] Encounter Details Date Type Department Care Team (Late st Contact Info) Description 08/22/2021 Transcribed Document [facility] [place] Medicine [address] [place] [address] ProviderDelvin MD [facility] [place] [address] Social History Tobacco Use Types Packs/Day Years Used Date Smoking Tobacco: Never Assessed Comments Unknown Sex and Gender Information Value Date Recorded Sex Assigned at Not on file Legal Sex Female 4:32 PM CDT Gender Identity Not on file Sexual Orientation Not on file documented as of this encounter Miscellaneous Notes * Cerner Conversion Note - Historical ProviderMD - 08/22/2021 2:00 AM CDT Maintenance Fitter Details Entered On: 08/22/2021 4:12 EDT Performed [...] filedocumented in this encounter Care Teams Student Life Advisor Relationship Specialty Start Date End Date Reji Castro MD [address] [place] [id number] PCP - General Adolescent Medicine 10/02/22 documented as of this encounter
--- OUTSIDE RECORDS SUMMARY | 2025-05-14 10:47 | XMS_ITS | Encounter Summary ---
Author Organization [facility] Address [address] [place] [address] Care Team Providers Care Lighting Director Name Role Phone Reji Castro MD Primary Care Provider + [phone] Encounter Details Date Type Department Care Team (Late st Contact Info) Description 08/27/[address] [facility] [place] Family Medicine [facility] [place] [address] ProviderDelvin MD [address] [place] [address] Social History Tobacco Use Types Packs/Day Years [...] Warfarin HPI: 56 y/o F presenting to [facility] with history of COPD, [...] 3). Daily INR Will followZeyad PharmD, BCPS [phone] Electronically signed by Stevie Ca Conversion Primer Waterproofing Machine Adjuster Cerner at 03/09/2023 8:32 PM CDT documented in this encounter Plan of Treatment Not on file documented as of this encounter Visit Diagnoses Not on filedocumented in this encounter Care Teams Lighting Director Relationship Specialty Start Date End Date Reji Castro MD [address] [place] [address] PCP - General Adolescent Medicine 10/02/22 documented as of this encounter
--- OUTSIDE RECORDS SUMMARY | 2025-05-14 10:47 | XMS_ITS | Encounter Summary ---
Author Organization [facility] Address [address] [place] [address] Care Team Providers Care Hospital Unit Clerk Name Role Phone Reji Castro MD Primary Care Provider [phone] Encounter Details Date Type Department Care Team (Late st Contact Info) Description 08/22/2021 Transcribed Document [facility] [place] [address] [place] [address] ProviderDelvin MD [address] [place] [address] Social History Tobacco Use Types Packs/Day Years [...] on filedocumented in this encounter Care Teams Hospital Unit Clerk Relationship Specialty Start Date End Date Reji Castro MD [address] [place] [address] PCP - General Adolescent Medicine 10/02/22 documented as of this encounter
--- OUTSIDE RECORDS SUMMARY | 2025-05-14 10:47 | XMS_ITS | Data Portability ---
Author Organization [place] & [place] ADMIN Address [address] [place] [address] Care Team Providers Care Linen Controller Name Role Phone WESTON TOVAR Primary Care Provider NINOSKA MOSER Telecommunications Network Planner NAFISA LE Primary Care Provider Assessment Encounter Date Assessment Date Assessment LastModified [...] Plan - Oncologist got CT 10/27 at [place]. Will get records. - Schedule Pill Cam - Will refer to Dr. Lopez at [facility] for EGD and Colonoscopy d/t iron deficiency [...] - discussed PillCam findings with Jade Moser RADIOISOTOPE TECHNICIAN an updated her on Dr. Betancur's recommendation for PUSH procedure - reviewed findings with patient - EGD/colonoscopy scheduled with Dr. Lopez at [facility] as it is closer to her home [...] upper endoscopy procedure (EGD) (PROC) 2024 025 [facility] (Central Scheduling), [address] [place] [address] [place], [address], 5 11:06:05 colonoscop y procedure (PROC) 2024 025 [facility] [address] [place] [address] [place], [address], 08:49:52 Surgeries None recorded. Imaging None recorded. Medication Orders Miralax 17 gram/dose oral powder 2024 [email or web address] [facility], [address] [place], [address], 5 11:55:43 Dulcolax (bisacodyl ) 5 mg tablet,del ayed release 2024 [email or web address] [facility], [address] [place], [address], 11:55:43 Patient TargetsNo targets recorded. Patient Instructions Encounter Date Encounter Id Patient Instructions Last Modified By Organization Details Last Modified Time 10/11/2024 [id number] Patient benefits from CPAP with resolution of fatigue, witnessed apneas and snores. She is compliant with CPAP. She is on auto CPAP in a range of 4-20 cm. Continue CPAP each and every night full sleep cycle. Weight loss. Patient is compliant with CPAP with an apnea plus hypopnea index of 0.7. RTC in one year. [email or web address] Not available 10/11/2024 10:48:47 Reason for Referral None Reported. Results Created Date Observation Date Name Description Value Unit Range Abnormal Flag Note LastModifiedBy Organization Detail LastModifiedTime 01/25/2001/24/2025 HEMAT OCRIT + HEMOG LOBIN HGB 7.2 g/dL 12.0-1 5.7 critical low Not Available [facility] (Lab Registration) [address] [place], [address], 01/24/2025 14:45:05 01/25/20 25 01/24/2025 HEMAT OCRIT + HEMOG LOBIN HCT 25.5 % 36.0-4 7.0 low Not Available [facility] (Lab Registration) [address] [place], [address], 01/24/2025 14:45:05 01/25/20 25 01/24/2025 HEMAT OCRIT + HEMOG LOBIN note Unles s other chen noted testi ng perfo rmed at: [facility] [address] [place] [address] [phone] Bo cisneros MD CLIA: [id number] Not Available [facility] (Lab Registration) [address] [place] , [place], [address], 01/24/2025 14:45:05 10/05/20 24 08/23/2024 bariu dao hollisall ow study No observ ation record ed. [facility] [address], [place], [place], [address], 11/17/2024 10:19:10 11/17/20 24 11/17/2024 RF, small bowel follo w-thr ough study No observ ation record ed. [facility] [address], [place], [address], 12/06/2024 11:06:36 01/08/20 25 capsu le endos copy (PROC ) No observ ation record ed. [email or web address] Not Available 2024 09:08:22 Result Notes None recorded. Problems Name Problem SNOMED Code Status Onset Date Resolution Date Notes Provider Name and Address Organization Details Recorded Time Iron deficiency anemia 45678886 Active 2024 Ninoska Moser NP [address], [address], [place], [address], [place] - [place] - [place] & [place] 5 10:47:25 Chronic idiopathic constipation 73853989 Active 2024 Ninoska Moser NP [address], [address], [place], [address], [place] & [place] 5 10:54:45 Gastro-esophag eal reflux disease with esophagitis 475388164 Active 2024 Ninoska Moser NP [address], [address], [place], [address], [place] [facility] & [place] 5 10:54:45 Obstructive sleep apnea syndrome 53010035 Active 2022 Farhan Bae MD [address] [place] [address],[address], [address], [place] - [facility] & [place] 3 10:26:00 Problem Notes None recorded. Procedures Surgical History Date Name Laterality Status Provider Name and Address Organization Details Recorded Time 01/25 esophagogastroduodenoscopy completed Maye Card [place] & [place] 5 17:05:17 01/25 Colonoscopy completed Maye Card [place] & [place] 5 17:05:26 01/31 completed Shanice [place] & [place] 5 09:52:06 07/31 Date of Last Colonoscopy completed Kimberl y Ezekiel [place] & [place] 5 09:52:06 ligation of fallopian tube completed Crystal Earlywine [place] & [place] 3 10:12:53 Imaging Results None recorded. Procedure Notes None recorded. Medical Equipment None Reported. Allergies Allergen ID Allergen Name Allergen Category Reaction Reaction Severity Criticality Documentation Date Start Date Code Code System Note Provider Name and Address Organization Details Recorded Time 91603 Buprenex medicatio n Not available Not available Not available 12/18/2022 84013 0 RxNorm Crystal [place] null, [place] - [facility] - [place] & [place] 3 10:08:00 97990 codeine medicatio n Not available Not available Not available 12/18/2022 2670 RxNorm Crystal [place] null, [place] [facility] & [place] 3 10:08:06 22193 Levaquin medicatio n Not available Not available Not available 12/18/2022 76178 2 RxNorm Crystal Early[place] null, [place] [facility] & [place] 3 10:08:13 89673 Rocephin medicatio n Not available Not available Not available 12/18/2022 9449 RxNorm [place] [facility] & [place] 3 10:08:19 61523 Iodinated contrast media (substanc e) medicatio n Not available Not available Not available 12/18/2022 83707 2004 SNOMED [place] Moreno [facility] & [place] 3 10:08:26 Medications Name Sig Start Date [...] No t Available FreeStyle Gerson 14 Day [place] USE DIRECTED active Not Available Not Available [...] Updated DateTime 5 162.56 cm 32.5 kg/m2 91555.3 9 g 97.9 [degF] 90 % 90 % 80 /min 77 /min 100 mm[Hg] 69 mm[Hg] Hannah COBB - [facility] & [place] 5 13:04:38 Date Recorded Body height Body mass index (BMI) Body weight Body temperature Oxygen saturation Oxygen saturation in Arterial blood by Pulse oximetry Heart rate Provider Name and Address Organization Details Last Updated DateTime 5 162.56 cm 32.2 kg/m2 86793.2 1 g 97.8 [degF] 90 % 90 % 85 /min Shanice COBB - [place] - [place] & [place] 5 09:51:59 Date Recorded Body height Provider Name an d Address Organization Details Last Updated DateTime 01/23/2025 162.56 cm NAFISA LE NP [address] [facility], [place], [address], [place] - [place] - [place] & [place] 01/23/2025 15:38:59 Date Recorded Heart rate Provider Name an d Address Organization Details Last Updated DateTime 10/11/2024 71 /min Farhan gao MD [address] [facility],[address], [place], [address], [place] - [place] [facility] & [place] 10/11/2024 10:47:19 Date Recorded Body height Body mass index (BMI) Body weight Oxygen saturation Oxygen saturation in Arterial blood by Pulse oximetry Respiratory rate Systolic blood pressure Diastolic blood pressure Provider Name and Address Organization Details Last Updated DateTime 4 162.56 cm 32.8 kg/m2 25391.4 2 g 97 % 97 % 12 /min 118 mm[Hg] 78 mm[Hg] Malini COBB - [facility] & [place] 4 10:42:15 Social History Question Answer Notes LastModified by Organizat ion Details LastModified Time Tobacco Smoking Status Former Smoker 1/2 PPD 30 years Malini gonzalez, [place] - [facility] & [place] 12/18/2022 10:12:37 Do You Have An Advance [...] Recorded Time meningococcal B, OMV 9 completed Malini Crain [facility], [place] [facility] & [place] 10/11/2024 10:42:50 meningococcal B, OMV 9 completed Crystal Earlywine null, [place] & [place] 10/11/2024 10:42:50 Influenza, recombinant, quadrivalent, PF 1 completed Crystal [place] null, [place] & [place] 10/11/2024 10:42:50 COVID-19, mRNA, LNP-S, PF, 100 mcg/0.5mL dose or 50 mcg/0.25mL dose 1 completed Crystal Earlywine null, [place] & [place] 10/11/2024 10:42:50 COVID-19, mRNA, LNP-S, PF, 100 mcg/0.5mL dose or 50 mcg/0.25mL dose 1 completed Crystal Earlywine null, [place] & [place] 10/11/2024 10:42:50 pneumococcal polysaccharide PPV23 9 completed Crystal Earlywine null, [place] & [place] 10/11/2024 10:42:50 Tdap 3 completed Crystal Earlywine null, [place] & [place] 10/11/2024 10:42:50 Pneumococcal conjugate PCV 13 9 completed Crystal Earlywine null, [place] 10/11/2024 10:42:50 Hib (PRP-T) 9 completed Crystal Earlywine null, [place] 10/11/2024 10:42:50 Meningococcal MCV4O 9 completed Crystal Earlywine null, [place] 10/11/2024 10:42:50 Meningococcal MCV4O 9 completed Crystal Earlywine null, [place] 10/11/2024 10:42:50 Influenza, split virus, quadrivalent, PF 0 completed Crystal Earlywine null, [place] 10/11/2024 10:42:50 Influenza, split virus, quadrivalent, PF 9 completed Crystal Earlywine null, [place] - [place] - [place] & [place] 10/11/2024 10:42:50 Influenza, split virus, quadrivalent, PF 7 completed Malini gonzalez, [place] - [place] - [place] & [place] 10/11/2024 10:42:50 Past Encounters Encounter ID Performer Location Encounter Start Date Encounter Closed Date Diagnosis/Indication Diagnosis SNOMED-CT Code Diagnosis ICD10 Code Diagnosis Note [id number] MD [facility] [address] [place] [address] DR MCCORD [address] [place] [address] 12/18/2022 09:57:02 12/18/2022 10:09:54 Obstructive sleep apnea syndrome 99417701 G47.33 [id number] MD [facility] [address] [place] [address] [place] [address] 10/11/2024 10:32:12 10/11/2024 10:47:15 Obstructive sleep apnea syndrome 30186416 G47.33 [id number] NAFISA LE NP [facility] [address] [place] [address] 10/06/2024 09:54:50 10/06/2024 10:56:04 Gastroesophageal reflux disease 793664569 K21.9 Iron defic iency anemia 12311649 D50.9 History of blood transfusion 463535481 Z92.89 Chronic ki dney disease stage 3 851769385 N18.30 Fatigue 47161521 R53.83 Chronic id iopathic constipation 05690559 K59.04 [id number] NAFISA LE NP [facility] [address] [place] [address] 11/29/2024 12:15:00 11/29/2024 13:42:06 Gastroesophageal reflux disease 716567106 K21.9 - continue Dexilant 60 mg Iron defic iency anemia 77327091 D50.9 - refer to [place] for EGD and colonoscop y History of blood transfusion 751325608 Z92.89 - small bowel follow through reviewed- Schedule Pill Cam Chronic ki dney disease stage 3 174681809 N18.30 Fatigue 46974779 R53.83 Chronic id iopathic constipation 98898756 K59.04 - trial Linzess [id number] Trey Lopez M.D [facility] [address] [address] 01/03/2025 08:58:20 01/03/2025 10:18:02 Iron deficiency anemia 88643710 D50.9 Ongoing for many years. She follows [...] colonoscop y estimated 10 years ago in [place] which were negative. She continues to follow with Cardiology , Dr. Pendleton. Recommend EGD/colono scopy to further evaluate after cardiac clearance, Dr. Pendleton, has been obtained as she is prescribed Warfarin. Will obtain recent labs to review. Gastro-eso phageal reflux disease with esophagitis 119567319 K21.00 Controlled with use of Dexilant. Chronic id iopathic constipation 75942598 K59.04 Currently prescribed Miralax, Linzess 72 mcg, and Dulcolax for treatment. [id number] NAFISA LE NP [facility] [address] [address] 01/23/2025 15:34:39 01/23/2025 15:56:32 Gastroesophageal reflux disease 941627251 K21.9 - continue Dexilant 60 mg Iron defic iency anemia 98709719 D50.9 History of blood transfusion 547561579 Z92.89 Chronic ki dney disease stage 3 231325599 N18.30 Fatigue 54398283 R53.83 Chronic id iopathic constipation 83578874 K59.04 Health Concerns Section Related Observation LastModified by Organization Detai ls LastModified Time None Recorded Concern Status LastModified by Organization Details LastModified Time None Recorded Advance Directives Directive N: Payers Insurance Date Sequence Insurance Name Policy Number Policy Edwards Covered Member ID Edwards Member ID Guarantor Name 01/31/2025 1 [facility] - DUAL ELIGIBLE (MEDICARE REPLACEMENT/AD VANTAGE - HMO) HEIDI Latham Costa [id number] Irina A Costa 01/23/2025 1 [place] H[place] [id number] Irina A Costa [id number] Irina Yeison Costa 10/11/2024 1 [place]AC[place] H[place]) [id number] Irina A Costa [id number] Irina A Costa 10/11/2024 1 [place] [id number] Irina Yeison Costa [id number] Irina A Costa 10/11/2024 2 [place]/TRADITIONA L Irina A Costa [id number] Irina A Costa 03/14/2025 2 MEDICAID-[facility] HEALTH CHOICES - FFS/TRADITIONA L Irina A Costa [id number] Irina A Costa 01/23/2025 1 [id number] Irina Yeison Costa [id number] Irina Yeison Costa 01/23/2025 1 [employer] (MEDICARE REPLACEMENT/AD VANTAGE - PPO) Irina A Costa [id number] Irina A Costa 10/11/2024 2 [place] Irina A Costa [id number] Irina A Costa 10/11/2024 2 [employer] (PPO) Irina A Costa [id number] Irina Costa Notes Date Note Type Note [...] neurologic complaints today.Modified Wells criteria of 0. [place] of 2.She voices no sleep-related or CPAP related issues.Patient is compliant with CPAP with an apnea plus hypopnea index of 0.7. Patient had a sleep study that revealed an apnea plus hypopnea index of 29, she spent 86% of the night above 90% saturation, lowest saturation recorded was 76%. She follows with Dr. Sawyer and a content director. Patient was again instructed to follow-up her [...] interactions with all of the prescribed and [id number] medications with a pharmacist, the patient again voiced understanding. The patient was instructed to go to ER if the patient does not improve or worsens, she again voiced understanding. Farhan Bae MD [address] [place] [address],[address], [place], [address], [place] & [place] 10/11/2024 10:49:13 11/29/2024 text/html PREVIOUS: Mrs. Natalie [...] all her comorbidities. Patient currently lives in [place] as well which is a far distance. She reports no symptoms except for worsening GERD and fatigue. CURRENT: Ms. Costa is here for follow up. She had her small bowel follow through and needs to have her pill cam. She is on weekly labs through her oncologist. Recent labs showed hemoglobin down to 7.0. She received 1st of 3 iron transfusion at [facility] today. She is scheduled for blood [...] bowel prep. Admission through the ED at [facility] would be 1 option. However patient is open to EGD/colonoscopy with Dr. Lopez in [place] since it is closer. NAFISA LE NP [address] [facility], [place], [address], [facility] 11/29/2024 13:55:56 01/03/2025 text/html 59 year old [...] and colonoscopy estimated 10 years ago in [place] which were negative. She denies melena or BRBPR. She continues to follow with Cardiology, Dr. Pendleton. Ninoska Moser NP [address] [facility], [address], [place], [address], [facility] 01/05/2025 12:06:47 01/23/2025 text/html PREVIOUS: Mrs. Natalie ya is 59 [...] all her comorbidities. Patient currently lives in [place] as well which is a far distance. She reports no symptoms except for worsening GERD and fatigue. PREVIOUS: Ms. Costa is here for follow up. She had her small bowel follow through and needs to have her pill cam. She is on weekly labs through her oncologist. Recent labs showed hemoglobin down to 7.0. She received 1st of 3 iron transfusion at [facility] today. She is scheduled for blood [...] bowel prep. Admission through the ED at [facility] would be 1 option. However patient is open to EGD/colonoscopy with Dr. Lopez in [place] since it is closer. CURRENT: Mrs. Costa is attends via [facility] today for follow up after pill cam. [...] on Audio and Video visit performed utilizing [employer] HIPAA compliant platform. Participants: patient and provider. Locations of each: Patient is at their home in [place], Provider is at the office in [place], [place]. Verbal consent was obtained before the start of the appointment obtained. NAFISA LE, RADIOISOTOPE TECHNICIAN [address], [place], [address], [facility] - [place] & [place] 01/23/2025 16:28:33 OBGyn Episode No OBEpisode recorded.
--- OUTSIDE RECORDS SUMMARY | 2025-05-14 10:47 | XMS_ITS | Encounter Summary ---
Author Organization [facility] Address [address] [place] [address] Care Team Providers Care Sales Development Coordinator Name Role Phone Reji Castro MD Primary Care Provider + [phone] Encounter Details Date Type Department Care Team (Late st Contact Info) Description 08/13/2021 Transcribed Document [facility] [place] Family Medicine [address] [place] [address] ProviderDelvin MD [address] [place] [address] Social History Tobacco Use Types Packs/Day Years [...] filedocumented in this encounter Care Teams Sales Development Coordinator Relationship Specialty Start Date End Date Reji Castro MD [address] [place] [address] PCP - General Adolescent Medicine 10/02/22 documented as of this encounter
--- OUTSIDE RECORDS SUMMARY | 2025-05-14 10:47 | XMS_ITS | Clinical Summary ---
Author Organization [facility] Address [address] [place] [address] Care Team Providers Care Media Librarian Name Role Phone Reji Castro MD Primary Care Provider [phone] Allergies Active Allergy Reactions Criticality Noted Date [...] rded Speak language other than Citizen Of [place] at home Not on file 12/10/2023 Want [...] 75+ series) [address] [place] [address] Advance Directives For more information, please contact: [phone] Documents on File Type Date Recorded Patient Grades 1 Thru 6 Visiting Teacher Expl anation Advance Directives and Gato g Will 10/05/2022 8:36 AM Care Teams Media Librarian Relationship Specialty Start Date End Date Reji Castro MD [address] [place] [address] PCP - General Adolescent Medicine 10/02/22
--- OUTSIDE RECORDS SUMMARY | 2025-05-14 10:47 | XMS_ITS | Encounter Summary ---
Author Organization [employer] Address [address] [place] [address] Care Team Providers Care Outdoor Studies Professor Name Role Phone Reji Tovar MD Primary Care Provider + [phone] Encounter Details Date Type Department Care Team (Late st Contact Info) Description 08/27/2021 Transcribed Document [facility] [place] [address] [place] [address] ProviderDelvin MD [address] [place], [place] [id number] Social History Tobacco Use Types Packs/Day Years [...] Celestin MD - 08/27/2021 1:31 PM CDT [facility] [place] [address] IRINA TAMAYO :1965 Visit Time:08/11/2021 Your Visit Summary Your Care Team Admitting Physician - VINCE BELLO MD Attending Physician - FAIZA YOUSSEF DO-GAUDENCIO Primary Care Physician - DEREK ROBISON DR Referring Physician - VINCE BELLO MD Your Diagnosis Bacteremia Acute kidney injury superimposed on chronic kidney disease, Acute kidney injury CHF with unknown LVEF Atrial fibrillation Diabetes mellitus type II MCFP current use of anticoagulant At risk for [...] contact Dr. Sawyer's office directly. Where: [address] [facility] [address] [place] [address]- Follow Up with LISA RICKETTS When 09/03/2021 10:45 AM EDT Comments Hospital follow up appointment has been made. Please arrive 15 minutes early to the appointment. If you need to reschedule, please contact [facility] directly. Where: [address] [facility] [address] [place] [address]- Business (1) Follow Up with NENA PEARSON [facility] When Within 1 week Comments The [facility] will contact you with appointment date and time. Where: [address] [facility] [address] [place] [address]- Follow Up with REJI TOVAR (REF)MD-[facility] When Within 5 to 7 days Comments The [facility] will contact you with appointment date and time. Where: [address] [place] [address]- Follow Up with JERRELL GONZALEZ When Within 2 weeks Comments The [facility] will contact you with appointment date and time. Where: Warfarin Instructions Indication for Warfarin Anticoagulation: Atrial fibrillation Indication for Warfarin Anticoagulation: Atrial fibrillation Warfarin Anticoagulation Disposition: Continuation of pre-hospital treatment Warfarin Anticoagulation Disposition: Continuation of pre-hospital treatment Duration Warfarin Therapy, Long-Term: Yes Target INR: 2.5 - 3.5 Physician [...] Dose REDUCTION to 25mg daily Pickup at [facility] spironolactone (spironolactone 25 mg oral tablet) 1 Tablet(s) Oral Every Day Please note: Dose REDUCTION to 1 tablet daily warfarin (Coumadin 4 mg oral tablet) 2 Tablet(s) Oral Every Day Please note: Dose INCREASE Pickup at [facility] acetaminophen-oxyCODONE (Percocet 10/ 325 oral [...] Drop(s) Eyes Both Every Day Pharmacy Information [facility]: [address] [place] [address] [phone] Take your medications faithfully. Do NOT skip [...] these instructions at home: Medicines ??? Take fejx-xoa-yohydzk and prescription medicines only as told by [...] and water are not available, use hand psychiatric social worker supervisor. ??? You should wash your hands: ? [...] care provider. ??? Practice good oral hygiene. [place] your teeth two times a day, and [...] provider. Document Revised: 03/29/2020 Document Reviewed: 03/29/2020 [employer] Patient Education ?? 2020 [employer]. Warfarin Coagulopathy Warfarin coagulopathy refers to bleeding [...] stopping any new medicines. Many prescription and sxjk-eek-lpamosb medicines can interfere with warfarin. This includes ldqc-iek-stholmt vitamins, dietary supplements, herbal medicines, and pain [...] you work with a diet and nutrition program instructor (dietitian). ??? Vitamin K makes warfarin less [...] Preventing bleeding and injury ??? Some common ctzr-opr-pdicsoc medicines and supplements may increase the risk [...] diet. ??? You start or stop any ddql-acy-wcuaiws medicine, prescription medicine, or dietary supplement. ??? [...] Reviewed: 01/26/2018 Elsevier Patient Education ?? 2020 [employer] Vitamin K Foods and Warfarin Warfarin [...] making changes. ??? Work with a nutrition program instructor (dietitian) to develop a meal plan that works best for you. What foods are high in vitamin K? Foods that are high in vitamin K contain more than 100 mcg (micrograms) per serving. These include: ??? Broccoli (cooked from fresh) ? cup (78 g) has 110 mcg. ??? [place] sprouts (cooked from fresh) ? cup (78 [...] cup (90 g) has 444 mcg. ??? Citizen Of [place] chard (cooked from fresh) ? cup (88 [...] cup (54 g) has 8 mcg. ??? [place] with peel (raw) ? cup (52 g) has 9 mcg. ??? Grapes ? cup (76 g) has 12 mcg. ??? [place] ??? 1 medium (207 g) has 9 [...] Reviewed: 08/27/2020 Elsevier Patient Education ?? 2020 [employer] Implanted Port Home Guide An implanted [...] implanted port has two main parts: ??? [place]. The reservoir is the part where a [...] water are not available, use alcohol-based hand psychiatric social worker supervisor. ? Change your dressing as told by [...] provider. Document Revised: 03/01/2020 Document Reviewed: 12/11/2017 [employer] Patient Education ?? 2020 [employer] Acute Kidney Injury, Adult Acute kidney [...] these instructions at home: Medicines ??? Take frcc-ghe-inllkyn and prescription medicines only as told by [...] important. Where to find more information ??? Citizen Of [place] Association of Kidney Patients: www.aakp.org ??? National Kidney Foundation: www.kidney.org ??? Citizen Of [place] Kidney Fund: www.akfinc.org ??? Life Options Rehabilitation [...] provider. Document Revised: 09/17/2020 Document Reviewed: 09/17/2020 [employer] Patient Education ?? 2020 [employer]. Chronic Kidney Disease, Adult Chronic kidney disease [...] these instructions at home: Medicines ??? Take xepd-qix-jarrjme and prescription medicines only as told by [...] provider. Document Revised: 10/21/2018 Document Reviewed: 12/13/2017 [employer] Patient Education ?? 2020 [employer]. Implanted Port Home Guide An implanted [...] implanted port has two main parts: ??? [place]. The reservoir is the part where a [...] water are not available, use alcohol-based hand psychiatric social worker supervisor. ? Change your dressing as told by [...] provider. Document Revised: 03/01/2020 Document Reviewed: 12/11/2017 [employer] Patient Education ?? 2020 [employer]. Atrial Fibrillation Atrial fibrillation is a [...] signals of the heart. ??? An ambulatory cafeteria monitor to record your heart's activity for [...] provider. Document Revised: 05/01/2020 Document Reviewed: 05/01/2020 [employer] Patient Education ?? 2020 [employer]. Aspirin and Your Heart Aspirin is [...] filedocumented in this encounter Care Teams Outdoor Studies Professor Relationship Specialty Start Date End Date eRji Tovar MD [address] [place] [address] PCP - General Adolescent Medicine 10/02/22 documented as of this encounter
--- OUTSIDE RECORDS SUMMARY | 2025-05-14 10:47 | XMS_ITS | Encounter Summary ---
Author Organization [employer] Address [address] [place] [address] Care Team Providers Care Rn Delivery Name Role Phone Reji Castro MD Primary Care Provider [phone] Reason for Referral * Ultrasound (Routine) - Closed Specialty Diagnoses / Procedures Referred By Contac t Referred To Contact Diagnoses Acute renal failure, unspecified acute renal failure type (HCC) Procedures Ultrasound head neck soft tissue Marion Umana MD Phone: tel: fax: Referral ID Status Reason Start Date Expiration Date Visits Re quested Visits Authorized [id number] Closed 09/28/2022 03/27/2023 1 1 Encounter Details Date Type Department Care Team (Late st Contact Info) Description 09/28/2022 Outside Orders [facility] Central Scheduling [address] [place] [address] Marion Umana MD [facility] [address] [place] [id number] Acute renal failure, unspecified acute renal failure [...] Primary documented in this encounter Care Teams Rn Delivery Relationship Specialty Start Date End Date Reji Castro MD [address] [place] [address] PCP - General Adolescent Medicine 10/02/22 documented as of this encounter
--- OUTSIDE RECORDS SUMMARY | 2025-05-14 10:47 | XMS_ITS | Encounter Summary ---
Author Organization [employer] Address [address] [place] [address] Care Team Providers Care Consulting Intern Name Role Phone Reji Castro MD Primary Care Provider [phone] Reason for Referral * Nuclear Medicine (Routine) - Closed Specialty Diagnoses / Procedures Referred By Contac t Referred To Contact Diagnoses Stage 3 chronic kidney disease, unspecified whether stage 3a or 3b CKD (HCC) Procedures NM parathyroid scan planar only Marion Umana MD Phone: tel: fax: Referral ID Status Reason Start Date Expiration Date Visits Re quested Visits Authorized [id number] Closed 10/02/2022 03/31/2023 1 1 Encounter Details Date Type Department Care Team (Late st Contact Info) Description 10/02/2022 Outside Orders [facility] Central Scheduling [address] [place] [address] Marion Umana MD [address] [facility] [address] [place] [address] Stage 3 chronic kidney disease, unspecified whether [...] (HCC) documented in this encounter Care Teams Consulting Intern Relationship Specialty Start Date End Date Reji Castro MD [address] [place] [address] PCP - General Adolescent Medicine 10/02/22 documented as of this encounter
--- OUTSIDE RECORDS SUMMARY | 2025-05-14 10:47 | XMS_ITS | Encounter Summary ---
Author Organization Healthcare Address [address] [place] [address] Care Team Providers Care Antenna Machine Operator Name Role Phone Anna Marie Savage MD Primary Care Provider [phone] Reji Castro MD Primary Care Provider [phone] Encounter Details Date Type Department Care Team (Late st Contact Info) Description 07/09/2023 Orders Only External Location [address] [place] [address] Karen Benson MD [address] [place] [address] Social History Tobacco Use Types Packs/Day Years [...] documented as of this encounter Care Teams Antenna Machine Operator Relationship Specialty Start Date End Date Anna Marie Savage MD [address] [place], [place] [id number] PCP - General 04/04/21 12/07/23 Reji Castro MD [address] [place] [address] [address] [place] [address] PCP - General Internal Medicine 12/08/23 documented as of this encounter
--- OUTSIDE RECORDS SUMMARY | 2025-05-14 10:47 | XMS_ITS | Encounter Summary ---
Author Organization [employer] Address [address] [place] [address] Care Team Providers Care Director Safety Council Name Role Phone Reji Castro MD Primary Care Provider [phone] Encounter Details Date Type Department Care Team (Late st Contact Info) Description 08/18/2021 Transcribed Document [facility] [place] [facility] [place] [address] ProviderDelvin MD [place] [address] Social History Tobacco Use Types Packs/Day Years [...] Warfarin HPI: 56 y/o F [facility] questions. Thank you, Andrea Moraes, PharmD PGY1 Security Incident Handler Pager: [phone], Ext. [phone] documented in this encounter Plan of Treatment Not on file documented as of this encounter Visit Diagnoses Not on filedocumented in this encounter Care Teams Director Safety Council Relationship Specialty Start Date End Date Reji Castro MD [address] [place] [address] PCP - General Adolescent Medicine 10/02/22 documented as of this encounter
--- OUTSIDE RECORDS SUMMARY | 2025-05-14 10:47 | XMS_ITS | Encounter Summary ---
Author Organization [employer] Address [address] [place] [address] Care Team Providers Care Resistance Machine Welder Setter Name Role Phone Reji Castro MD Primary Care Provider [phone] Encounter Details Date Type Department Care Team (Late st Contact Info) Description 08/22/2021 Transcribed Document [facility] Radiology [address] [place] [address] Loren Solorzano MD [address] [place] [address] [address] [place] [id number] Social History Tobacco Use Types Packs/Day Years [...] cefTRIAXone: 2 Gram, 100 mL/Hr, IV Piggyback, [id number] diphenhydrAMINE: 25 mg, Oral, Q6H, PRN: Itching [...] Oral, BID cefTRIAXone 2 Gram, IV Piggyback, [id number] citalopram 20 mg tab 40 mg 2 [...] Bioprosthetic mitral valve replacement / SNOMED CT 227715905 / Confirmed Chronic kidney disease / SNOMED CT 5943860918 / Confirmed COPD - Chronic obstructive pulmonary disease / SNOMED CT 395812458 / Confirmed History of obstructive sleep apnea / IMO [id number] / Confirmed HLD - Hyperlipidemia / SNOMED CT 712940984 / Confirmed HTN - Hypertension / SNOMED CT 4509767589 / Confirmed Canceled: Atrial fibrillation / SNOMED CT 99150314, Active Problems (25) AIHA (autoimmune hemolytic anemia) [...] Hold home meds SSI #Depression Celexa #Pain [place] 10 mg every 6 hours as needed CODE STATUS. Full code Dispo: Given patient with history of multiple transfusion we will keep patient in the hospital on heparin drip and Coumadin till INR therapeutic need IV abx, at least until 09/08. Discussed with shoe caser. and pharmcy Time spent 25 minutes documented in this encounter Plan of Treatment Not on file documented as of this encounter Visit Diagnoses Not on filedocumented in this encounter Care Teams Resistance Machine Welder Setter Relationship Specialty Start Date End Date Reji Castro MD [address] [place] [address] PCP - General Adolescent Medicine 10/02/22 documented as of this encounter
--- OUTSIDE RECORDS SUMMARY | 2025-05-14 10:47 | XMS_ITS | Encounter Summary ---
Author Organization [employer] Address [address] [place] [address] Care Team Providers Care Flexible Nanny Name Role Phone Reji Castro MD Primary Care Provider [phone] Encounter Details Date Type Department Care Team (Late st Contact Info) Description 08/22/2021 Transcribed Document [facility] [place] [address] [place] [address] ProviderDelvin MD [facility] [place] [address] Social History Tobacco Use Types Packs/Day Years [...] Warfarin HPI: 56 y/o F presenting to [facility] with history of COPD, atrial fibrillation, [...] cefTRIAXone: 2 Gram, 100 mL/Hr, IV Piggyback, [id number]. citalopram: 40 mg, Oral, Daily. diphenhydrAMINE: 25 [...] weekend. Thank you, Andrea Moraes, PharmD PGY1 Area Supervisor Pager: [phone], Ext. [phone] documented in this encounter Plan of Treatment Not on file documented as of this encounter Visit Diagnoses Not on filedocumented in this encounter Care Teams Flexible Nanny Relationship Specialty Start Date End Date Reji Castro MD [address] [place] [address] PCP - General Adolescent Medicine 10/02/22 documented as of this encounter
--- OUTSIDE RECORDS SUMMARY | 2025-05-14 10:47 | XMS_ITS | Encounter Summary ---
Author Organization [employer] Address [address] [place] [address] Care Team Providers Care Assistant Cross Country Coach Name Role Phone Reji Castro MD Primary Care Provider [phone] Encounter Details Date Type Department Care Team (Late st Contact Info) Description 08/24/2021 Transcribed Document [facility] [place] Medicine [facility] [place] [address] ProviderDelvin MD [address] [place] [address] Social History Tobacco Use Types Packs/Day Years [...] 56 y/o F presenting to [facility] with history of COPD, atrial fibrillation, CKD [...] cefTRIAXone: 2 Gram, 100 mL/Hr, IV Piggyback, [id number]. citalopram: 40 mg, Oral, Daily. diphenhydrAMINE: 25 [...] you, Noy Garrett, PharmD PGY-1 Resident Pager #[phone] Electronically signed by Lanny [facility] Conversion Farmworker Vegetable Cerner at 03/09/2023 8:39 PM CDT documented in this encounter Plan of Treatment Not on file documented as of this encounter Visit Diagnoses Not on filedocumented in this encounter Care Teams Assistant Cross Country Coach Relationship Specialty Start Date End Date Reji Castro MD [address] [place] [address] PCP - General Adolescent Medicine 10/02/22 documented as of this encounter
--- OUTSIDE RECORDS SUMMARY | 2025-05-14 10:47 | XMS_ITS | Encounter Summary ---
Author Organization [employer] Address [address] [place] [address] Care Team Providers Care Cut Off Saw Operator Name Role Phone Reji Castro MD Primary Care Provider [phone] Encounter Details Date Type Department Care Team (Late st Contact Info) Description 08/27/2021 Transcribed Document [facility] [place] [address] [place] [address] ProviderDelvin MD [address] [place] [address] Social History Tobacco Use Types Packs/Day Years [...] 10:18 AM CDT Reji Castro MD [address] [facility] [address] [place] [address] Re: IRINAGE TAMAYO Date of Visit: 08/11/2021 Dear Reji [...] contents is strictly prohibited. Sincerely, FAIZA YOUSSEF [address] [place] [address] [address] [place] [address] The following document(s) were included in the letter: August 27, 2021 10:05:19 EDT - (08/27/2021) Discharge Note documented in this encounter Plan of Treatment Not on file documented as of this encounter Visit Diagnoses Not on filedocumented in this encounter Care Teams Cut Off Saw Operator Relationship Specialty Start Date End Date Reji Castro MD [address] [place] [id number] PCP - General Adolescent Medicine 10/02/22 documented as of this encounter
--- OUTSIDE RECORDS SUMMARY | 2025-05-14 10:47 | XMS_ITS | Encounter Summary ---
Author Organization [employer] Address [address] [place] [address] Care Team Providers Care Bus Driver Name Role Phone Reji Castro MD Primary Care Provider [phone] Encounter Details Date Type Department Care Team (Late st Contact Info) Description 08/27/2021 Transcribed Document [facility] [place] [address] [place] [address] ProviderDelvin MD [address] [place] [address] Social History Tobacco Use Types Packs/Day Years Used Date Smoking Tobacco: Never Assessed Comments Unknown Sex and Gender Information Value Date Recorded Sex Assigned at Not on file Legal Sex Female 4:32 PM CDT Gender Identity Not on file Sexual Orientation Not on file documented as of this encounter Miscellaneous Notes * Cerner Conversion Note - Delvin ProviderMD - 08/27/2021 2:00 AM CDT Pipe Line Walker Details Entered On: 08/27/2021 3:29 EDT Performed [...] filedocumented in this encounter Care Teams Bus Driver Relationship Specialty Start Date End Date Reji Castro MD [address] [place] [address] PCP - General Adolescent Medicine 10/02/22 documented as of this encounter
--- OUTSIDE RECORDS SUMMARY | 2025-05-14 10:47 | XMS_ITS | Encounter Summary ---
Author Organization [employer] Address [address] [place] [address] Care Team Providers Care Town Administrator Name Role Phone Reji Castro MD Primary Care Provider [phone] Encounter Details Date Type Department Care Team (Late st Contact Info) Description 08/24/2021 Transcribed Document [facility] [place] [address] [place] [address] ProviderDelvin MD [address] [place] [address] Social History Tobacco Use Types Packs/Day Years [...] - 08/24/2021 5:28 EDT Electronically signed by Stevie Ca Conversion Printed Circuit Board Preassembler Cerner at 03/09/2023 8:40 PM CDT documented in this encounter Plan of Treatment Not on file documented as of this encounter Visit Diagnoses Not on filedocumented in this encounter Care Teams Town Administrator Relationship Specialty Start Date End Date Reji Castro MD [address] [place] [address] PCP - General Adolescent Medicine 10/02/22 documented as of this encounter
--- OUTSIDE RECORDS SUMMARY | 2025-05-14 10:47 | XMS_ITS | Encounter Summary ---
Author Organization [employer] Address [address] [place] [address] Care Team Providers Care Piece Worker Name Role Phone Reji Castro MD Primary Care Provider + [phone] Encounter Details Date Type Department Care Team (Late st Contact Info) Description 08/13/2021 Transcribed Document [facility] [place] [facility] of [facility] [place] [address] ProviderDelvin MD [place] [address] Social History Tobacco Use Types Packs/Day Years [...] 180 units of blood due to anemia, [facility] [place] is why she has a port. Reason [...] these transfusions about 3 years ago at [facility]. Last month she developed fever, headache, nausea, and was admitted to [facility]. CHUCHO/TTE at that time showed possible bacteria on the tip of her port. She was treated with PO antibiotics with resolution of symptoms and was discharged home with no plans for port removal. She reports a few days ago she again had headache and nausea, this time without fever. She presented to the emergency department at [facility] with blood cultures drawn which were supposedly positive for staph epi. She was subsequently told to come to [facility] ED for ID consultation. Review [...] fibrillation 5. Diabetes mellitus type II 6. halfway current use of anticoagulant At risk for [...] Diagnostic Results Radiology Results (Last 48 hours) [id number] -- 08/11/2021 21:21 CR Chest 1 Vw [...] 08/13/2021 06:13 Blood Urea Nitrogen 50 mg/dL FL 08/13/2021 06:13 Glucose Level 102 mg/dL 08/13/2021 06:13 Albumin Level 3.9 Gram/dL 08/13/2021 06:13 Bilirubin Total 0.5 mg/dL 08/13/2021 06:13 Calcium Level 9.1 mg/dL 08/13/2021 06:13 Electronically signed by [facility], [facility] Conversion Solar Lab Technician Cerner at 03/09/2023 8:43 PM CDT documented in this encounter Plan of Treatment Not on file documented as of this encounter Visit Diagnoses Not on filedocumented in this encounter Care Teams Piece Worker Relationship Specialty Start Date End Date Reji Castro MD [address] [place] [address] PCP - General Adolescent Medicine 10/02/22 documented as of this encounter
--- OUTSIDE RECORDS SUMMARY | 2025-05-14 10:47 | XMS_ITS | Encounter Summary ---
Author Organization [employer] Address [address] [place] [address] Care Team Providers Care Ship'S Surveyor Name Role Phone Reji Castro MD Primary Care Provider + [phone] Encounter Details Date Type Department Care Team (Late st Contact Info) Description 08/22/2021 Transcribed Document [facility] [place] [address] [place], [place] [id number] ProviderDelvin MD [address] [place] [address] Social History Tobacco Use Types Packs/Day Years [...] cefTRIAXone: 2 Gram, 100 mL/Hr, IV Piggyback, [id number] diphenhydrAMINE: 25 mg, Oral, Q6H, PRN: Itching [...] Oral, BID cefTRIAXone 2 Gram, IV Piggyback, [id number] citalopram 20 mg tab 40 mg 2 [...] Bioprosthetic mitral valve replacement / SNOMED CT 212336291 / Confirmed Chronic kidney disease / SNOMED CT 6184034262 / Confirmed COPD - Chronic obstructive pulmonary disease / SNOMED CT 026030650 / Confirmed History of obstructive sleep apnea / IMO 36561999 / Confirmed HLD - Hyperlipidemia / SNOMED CT 991597508 / Confirmed HTN - Hypertension / SNOMED CT 9687912957 / Confirmed Canceled: Atrial fibrillation / SNOMED CT 13964928, Active Problems (25) AIHA (autoimmune hemolytic anemia) [...] GFR adjust medications. Electronically signed by Lanny, [facility] Conversion Music [employer] Director Cerner at 03/09/2023 8:43 PM CDT documented in this encounter Plan of Treatment Not on file documented as of this encounter Visit Diagnoses Not on filedocumented in this encounter Care Teams Ship'S Surveyor Relationship Specialty Start Date End Date Reji Castro MD [address] [place] [id number] PCP - General Adolescent Medicine 10/02/22 documented as of this encounter
--- OUTSIDE RECORDS SUMMARY | 2025-05-14 10:47 | XMS_ITS | Encounter Summary ---
Author Organization [employer] Address [address] [facility] [place] [address] Care Team Providers Care Measurement Technician Name Role Phone Reji Castro MD Primary Care Provider [phone] Encounter Details Date Type Department Care Team (Late st Contact Info) Description 10/02/2022 Outside Orders [facility] Central Scheduling [address] [place] [address] Marion Umana MD [address] [facility] [address] [place], [place] [id number] Stage 3 chronic kidney disease, unspecified whether [...] Primary documented in this encounter Care Teams Measurement Technician Relationship Specialty Start Date End Date Reji Castro MD [address] [place] [address] PCP - General Adolescent Medicine 10/02/22 documented as of this encounter
--- OUTSIDE RECORDS SUMMARY | 2025-05-14 10:47 | XMS_ITS | Encounter Summary ---
Author Organization [employer] Address [address] [place] [address] Care Team Providers Care Yarn Mercerizer Operator Name Role Phone Reji Castro MD Primary Care Provider + [phone] Encounter Details Date Type Department Care Team (Late st Contact Info) Description 08/13/2021 Transcribed Document [facility] [place] Family Medicine [address] [place] [address] ProviderDelvin MD [address] [place] [address] Social History Tobacco Use Types Packs/Day Years [...] mg, 14 mL, 128 mL/Hr, IV Piggyback, [id number] Dextrose 50% injection: 12.5 Gram, IV Push, [...] improvement time 35mins Electronically signed by Interface, [facility] Conversion Tapper Operator Cerner at 03/09/2023 9:02 PM CDT documented in this encounter Plan of Treatment Not on file documented as of this encounter Visit Diagnoses Not on filedocumented in this encounter Care Teams Yarn Mercerizer Operator Relationship Specialty Start Date End Date Reji Castro MD [address] [place] [id number] PCP - General Adolescent Medicine 10/02/22 documented as of this encounter
--- OUTSIDE RECORDS SUMMARY | 2025-05-14 10:47 | XMS_ITS | Encounter Summary ---
Author Organization [employer] Address [address] [place] [address] Care Team Providers Care Student Counsellor Name Role Phone Reji Castro MD Primary Care Provider + [phone] Encounter Details Date Type Department Care Team (Late st Contact Info) Description 08/13/2021 Transcribed Document [facility] [place] [facility] [address] ProviderDelvin MD [facility] [address] Social History Tobacco Use Types Packs/Day Years [...] her port could not be accessed. Her plate maker aspirated fluid from the port that was evidently purulent. I have not yet been able to track down that culture. After the aspiration she developed fever to 103, severe CHEUNG, myalgias and arthralgias. She was admitted to [facility]. She was in the hospital [...] antibiotics. On 08/08 she presented to a [facility] after she developed severe CHEUNG and myalgias w/o prominent fever. She was subsequently contacted and told to report to [facility] because she had + blood cutures concerning for an infected portacath +/- PVE. 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 Integumentary: Warm, Mcconnells. Neurologic: Alert, Oriented, No focal deficits. Psychiatric: [...] recommend therapy to 09/22 Electronically signed by [facility], [facility] Conversion Fisher Scallop Cerner at 03/09/2023 8:46 PM CDT documented in this encounter Plan of Treatment Not on file documented as of this encounter Visit Diagnoses Not on filedocumented in this encounter Care Teams Student Counsellor Relationship Specialty Start Date End Date Reji Castro MD [address] [place] [id number] PCP - General Adolescent Medicine 10/02/22 documented as of this encounter
--- OUTSIDE RECORDS SUMMARY | 2025-05-14 10:47 | XMS_ITS | Encounter Summary ---
Author Organization [employer] Address [address] [place] [address] Care Team Providers Care Dumper Mold Cleaner Name Role Phone Reji Castro MD Primary Care Provider [phone] Encounter Details Date Type Department Care Team (Late st Contact Info) Description 08/24/2021 Transcribed Document [facility] [place] [address] [place] [address] ProviderDelvin MD [address] [place] [address] Social History Tobacco Use Types Packs/Day Years Used Date Smoking Tobacco: Never Assessed Comments Unknown Sex and Gender Information Value Date Recorded Sex Assigned at Not on file Legal Sex Female 4:32 PM CDT Gender Identity Not on file Sexual Orientation Not on file documented as of this encounter Miscellaneous Notes * Cerner Conversion Note - Delvin ProviderMD - 08/24/2021 2:00 AM CDT Hypnotherapist Details Entered On: 08/24/2021 0:53 EDT Performed [...] on filedocumented in this encounter Care Teams Dumper Mold Cleaner Relationship Specialty Start Date End Date Reji Castro MD [address] [place] [id number] PCP - General Adolescent Medicine 10/02/22 documented as of this encounter
--- OUTSIDE RECORDS SUMMARY | 2025-05-14 10:47 | XMS_ITS | Clinical Summary ---
Author Organization [facility] Address [address] [place] [address] Care Team Providers Care Associate Professor Of Art History Name Role Phone Reji Castro MD Primary Care Provider [phone] Allergies Active Allergy Reactions Criticality Noted Date [...] (one) time each day. Active Continuous Glucose Plugger Man (FreeStyle Gerson 14 Day Chilcoot) device use as directed 4 Active Continuous [...] Description 05/07/2025 Orders Only External Location [address] [place] [address] Provider, External 05/07/2025 Orders Only External Location [address] [place] [address] Provider, External from Last 3 Months Immunizations [...] place to sleep or slept in a retirement (including now)? No 11/19/2023 Utilities Answer Date [...] 2013 UKY-Zoster Vaccines (1 of 2) 2013 JMY-RCGTT-07 Vaccine (3 - Moderna risk series) 03/24/2021 [...] Reactive Non Reactive 12/15/2024 9:33 PM EST [facility] Comment:Screening for HIV 1 & 2 antibodies, and P24 antigen is NONREACTIVE. No confirmatory testing is required. Blood Venous blood specimen / Unknown Venipuncture / Unknown 12/15/2024 8:10 PM EST 12/15/2024 8:52 PM EST Elijah Negron MD LAB BLOOD ORDERABLES Final Result [facility] [address] [place] [address] * Hepatitis C Antibody - ED (12/15/2024 8:10 PM EST) Hepatitis C Antibody Negative Negative 12/15/2024 9:33 PM EST [facility] Blood Venous blood specimen / Unknown Venipuncture / Unknown 12/15/2024 8:10 PM EST 12/15/2024 8:52 PM EST Elijah Negron MD LAB BLOOD ORDERABLES Final Result [facility] [address] [place] [address] * (ABNORMAL) Hemoglobin A1c (11/20/2023 2:15 AM [...] Adults <6.0% Children and Adolescents <7.5% Source: [place] [employer]. Standards of medical care in diabetes,2017. Diabetes Care.2017:40 (suppl 1):S1-S135. HbA1c assay performed by an ion-exchange chromatography method that is certified traceable to the DCCT. us Alannah Conti APRN LAB BLOOD ORDERABLES Final Re sult Performing Organization Address City/[facility] Co de Phone Number [facility] [address] [place] [address] from Last 3 Months or Most Recently Relevant to Health Maintenance Insurance [facility] MEDICARE Advance Directives * Full Code (Latest Code Status on File) Date Activated Date Inactivated Comments 11/18/2023 5:56 PM 11/24/2023 4:04 PM Question Answer Comments Patient has decision-making capacity? Yes Care Teams Associate Professor Of Art History Relationship Specialty Start Date End Date Reji Castro MD [address] [place] [address] [place] [id number] PCP - General Internal Medicine 12/08/23
--- OUTSIDE RECORDS SUMMARY | 2025-05-14 10:47 | XMS_ITS | Encounter Summary ---
Author Organization [employer] Address [address] [place] [address] Care Team Providers Care Skiver Machine Operator Name Role Phone Reji Castro MD Primary Care Provider [phone] Encounter Details Date Type Department Care Team (Late st Contact Info) Description 08/27/2021 Transcribed Document [facility] [place] Family Medicine [address] [place] [address] ProviderDelvin MD [address] [place] [address] Social History Tobacco Use Types Packs/Day Years [...] On: 08/27/2021 14:36 EDT by SHAISTA WOLFF Fur Glazer Final Discharge Planning Discharge Arrangements : Patient [...] Services (Related/SOC within 3 days)-06 SHAISTA WOLFF Fur Glazer - 08/27/2021 14:36 EDT Final Narrative Note Final Narrative Note : Admission day 16, on room air to discharge home today, transport via s/o Jorge, who will assist with care. Home health for lab work and Port-a cath care via [facility] ([phone]/Radha Souza), IV Abx via [facility], they will deliver medication to patient's home this evening and patient was taught at bedside how to give herself the infusion, patient's follow up [facility] (via [facility] [phone]/cBrett) appt set for 09/03/2021 at 0900. All other appointments in place via Virtual RN. Pt, RN aware and in agreement with plan. SHAISTA WOLFF Social Worker - 08/27/2021 14:36 EDT documented in this encounter Plan of Treatment Not on file documented as of this encounter Visit Diagnoses Not on filedocumented in this encounter Care Teams Skiver Machine Operator Relationship Specialty Start Date End Date Reji Castro MD [address] [place] [id number] PCP - General Adolescent Medicine 10/02/22 documented as of this encounter
--- OUTSIDE RECORDS SUMMARY | 2025-05-14 10:47 | XMS_ITS | Encounter Summary ---
Author Organization [employer] Address [address] [place] [address] Care Team Providers Care Medical Management Trainer Name Role Phone Reji Tovar MD Primary Care Provider [phone] Encounter Details Date Type Department Care Team (Late st Contact Info) Description 08/27/2021 Transcribed Document [facility] [place] Family Medicine [address] [place] [address] ProviderDelvin MD [address] [place] [address] Social History Tobacco Use Types Packs/Day Years [...] take to pcp f/u Depression Celexa Pain Vesuvius 10 mg every 6 hours as needed Procedures SN - Proc - Procedure: Vascular Access Insertion (08/19/21 08:00:32)ATE OF PROCEDURE: 08/19/2021 SURGEON: Nena Holliday MD 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 PROCEDURE PERFORMED: Right IJ PowerPort placement. GREENSKEEPER LABORER: Cherri Ya. ANESTHESIA: Local MAC. FINDINGS: An 8-Ukrainian single lumen PowerPort was placed using a [...] and J-wire followed by passage of the 8-Ukrainian single-lumen catheter. Once again, fluoroscopy was used [...] taken to the Recovery in stable condition. /[id number] Nena Holliday MD JMH/AQ [1] Operative Report [...] back to her room in stable condition. /[id number] MD GERMAINE Pollard/TONYA / DOTTIE / MODL /[id number] Signature Line Electronically Signed on 08/14/2021 11:35 [...] to [facility] emergency department in [place] after being told by outside provider that [...] what doses. She was seen by our commercial census taker with no new findings, rec to f/u with her usual commercial census taker. Vital Signs T: 36.4 ??C TMIN: 36.4 [...] 2 g injection 2 Gram, IV Piggyback, [id number] Celexa 40 mg oral tablet 40 mg [...] -- Start: 08/19/21 9:34:00 EDT, 60 gm carbs:[id number] kori, Isolation: Standard Precautions, Instructions: Diabetic Diet [...] 08/11/2021 20:36 EDT Electronically signed by Lanny [facility] Conversion Supervisor Soakers Cerner at 03/09/2023 8:54 PM CDT documented in this encounter Plan of Treatment Not on file documented as of this encounter Visit Diagnoses Not on filedocumented in this encounter Care Teams Medical Management Trainer Relationship Specialty Start Date End Date Reji Tovar MD [address] [place] [address] PCP - General Adolescent Medicine 10/02/22 documented as of this encounter
--- OUTSIDE RECORDS SUMMARY | 2025-05-14 10:47 | XMS_ITS | Clinical Summary ---
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) 4271387 (SNOMED CT) Active 0 Lisa Torres Benign essential hypertension Medications Medication Instructions Start Date Stop Date Generic Name [facility] Provider CEFTRIAXONE SODIUM 1 GM SOLR 2gm IV Q 24hrs through 09/08 [facility] [phone] ceftriaxone 61782319061 [place] LEVOTHYROXINE SODIUM 25 MCG TABS TAKE 1 TABLET BY MOUTH DAILY levothyroxine 50155443056 Belkis Mattson BUMETANIDE 2 MG TABS bumetanide 22421819032 Belkis Mattson DEXILANT 60 MG CPDR dexlansoprazole 84966586666 Belkis Mattson OLOPATADINE HCL 0.2 % SOLN olopatadine 94383463401 Belkis Mattson ALPRAZOLAM 0.5 MG TABS alprazolam 91588206323 Belkis Mattson WARFARIN SODIUM 4 MG TABS warfarin 58790753665 Belkis Mattson SPIRONOLACTONE 25 MG TABS TAKE 1 TABLET BY MOUTH ONCE A DAY. spironolactone 43122648930 Belkis Mattson FOLIC ACID 1 MG TABS TAKE 1 TABLET BY MOUTH ONCE A DAY. folic acid 74461078092 Belkis Mattson RAMY ASPIRIN EC LOW DOSE 81 MG TBEC aspirin 13964647714 Belkis Mattson CELEXA 40 MG TABS citalopram 33492301244 Belkis Mattson docusate sodium unspecified unspecified docusate sodium 41807942635 Angelita Mattson FAMOTIDINE 20 MG TABS famotidine 93327373716 Belkis Mattson PERCOCET 10-325 MG TABS oxycodone-acetam i nophen 73430099483 Belkis Mattson TOPROL XL 25 MG [id number] metoprolol succinate 40421417146 Belkis Mattson CEFTRIAXONE SODIUM 1 GM SOLR 2gm IV Q 24hrs through 09/08 [facility] [phone] ceftriaxone 99940866896 [facility] Medications Administered No information available. Allergies, Adverse Reactions, Alerts Allergy Name Reaction Description Start Date Severity Statu s Provider THEOPHYLLINE ER Moderate Active Bethany celiafan Mattson PROPAFENONE HCL Moderate Active Bethany ronan Mattson PENICILLIN V POTASSIUM Moderate Active Belkis Mattson METFORMIN HCL congestive heart failure Severe Active Belkis Mattson GLIPIZIDE congestive heart failure Severe Active Beklis Mattson DYE Moderate Active Belkis Mattson DETROL [...]
--- OUTSIDE RECORDS SUMMARY | 2025-05-14 10:47 | XMS_ITS | Referral Summary ---
Author Organization [employer] Address [address] [facility] [place] [address] Care Team Providers Care Vacuum Cleaner Repair Person Name Role Phone Reji Castro MD Primary Care Provider [phone] Allergies Active Allergy Reactions Criticality Noted Date [...] Date Yash rded Speak language other than Romanian at home Not on file 12/10/2023 Want [...] Plan of Treatment Not on file Insurance [facility] Advance Directives For more information, please contact: [phone] Documents on File Type Date Recorded Patient Associate Professor Of Radiology Expl anation Advance Directives and Gato ponce Will 10/05/2022 8:36 AM Care Teams Vacuum Cleaner Repair Person Relationship Specialty Start Date End Date Reji Castro MD [address] [place] [id number] PCP - General Adolescent Medicine 10/02/22
--- OUTSIDE RECORDS SUMMARY | 2025-05-14 10:48 | XMS_ITS | Encounter Summary ---
Author Organization [employer] Address [address] [place] [address] Care Team Providers Care Spinner Fixer Name Role Phone Reji Castro MD Primary Care Provider [phone] Encounter Details Date Type Department Care Team (Late st Contact Info) Description 08/17/2021 Transcribed Document [facility] [place] Family Medicine [address] [place] [address] ProviderDelvin MD [address] [place] [address] Social History Tobacco Use Types Packs/Day Years [...] 08/17/2021 6:06 EDT Electronically signed by Lanny [facility] Conversion Demo Event Specialist Marisa at 03/09/2023 8:53 PM CDT documented in this encounter Plan of Treatment Not on file documented as of this encounter Visit Diagnoses Not on filedocumented in this encounter Care Teams Spinner Fixer Relationship Specialty Start Date End Date Reji Castro MD [address] [place] [address] PCP - General Adolescent Medicine 10/02/22 documented as of this encounter
--- OUTSIDE RECORDS SUMMARY | 2025-05-14 10:48 | XMS_ITS | Encounter Summary ---
Author Organization [facility] Address [address] [place] [address] Care Team Providers Care Perfect Binder Setter Name Role Phone Reji Castro MD Primary Care Provider [phone] Encounter Details Date Type Department Care Team (Late st Contact Info) Description 05/07/2025 Orders Only External Location [address] [place] [address] Provider, External Social History Tobacco Use Types [...] place to sleep or slept in a skilled nursing (including now)? No 11/19/2023 Utilities Answer Date [...] documented as of this encounter Care Teams Perfect Binder Setter Relationship Specialty Start Date End Date Reji Castro MD [address] [place] [address] PCP - General Internal Medicine 12/08/23 documented as of this encounter
--- OUTSIDE RECORDS SUMMARY | 2025-05-14 10:48 | XMS_ITS | Encounter Summary ---
Author Organization [employer] Address [address] [place] [address] Care Team Providers Care Senior C Web Developer Name Role Phone Reji Castro MD Primary Care Provider [phone] Encounter Details Date Type Department Care Team (Late st Contact Info) Description 08/13/2021 Transcribed Document [facility] [place] Family [place] [address] [place] [address] ProviderDelvin MD [address] [place] [address] Social History Tobacco Use Types Packs/Day Years [...] On: 08/13/2021 7:24 EDT by Marline Leija, Aligner Barrel And Receiver Primary Insurance Authorization Authorization and Policy Numbers : Insurance 1 Health Plan: [employer] PPO Policy Number: [id number] Authorization Number: Insurance 2 Health Plan: [place] Policy Number: [id number] Authorization Number: Insurance Primary Name : [employer] PPO Policy Number: [id number] Authorization Status-Primary : Notification only Reference Number-Primary : [id number] Authorization Number-Primary : [id number] Authorized Service Begin Date-Primary : 08/11/2021 EDT Authorization Comments-Primary : Authorized per email from Khari Cohen RN. Historical Authorization Comments-Primary : Comment 1: Pend ref no per [employer], reviewer has access to [employer] (JORGE VALLES RN 08/12/2021 14:07) Marline Leija, Aligner Barrel And Receiver - 08/13/2021 7:24 EDT Electronically signed by Lanny [facility] Conversion Hris Analyst Cerner at 03/09/2023 8:49 PM CDT documented in this encounter Plan of Treatment Not on file documented as of this encounter Visit Diagnoses Not on filedocumented in this encounter Care Teams Senior C Web Developer Relationship Specialty Start Date End Date Reji Castro MD [address] [place] [id number] PCP - General Adolescent Medicine 10/02/22 documented as of this encounter
--- OUTSIDE RECORDS SUMMARY | 2025-05-14 10:48 | XMS_ITS | Encounter Summary ---
Author Organization [employer] Address [address] [place] [address] Care Team Providers Care Programmer Developer Name Role Phone Reji Castro MD Primary Care Provider [phone] Encounter Details Date Type Department Care Team (Late st Contact Info) Description 08/17/2021 Transcribed Document [facility] [place] Family Medicine [address] [place] [address] ProviderDelvin MD [address] [place] [address] Social History Tobacco Use Types Packs/Day Years [...] on filedocumented in this encounter Care Teams Programmer Developer Relationship Specialty Start Date End Date Reji Castro MD [address] [place] [address] PCP - General Adolescent Medicine 10/02/22 documented as of this encounter
--- OUTSIDE RECORDS SUMMARY | 2025-05-14 10:48 | XMS_ITS | Encounter Summary ---
Author Organization [employer] Address [address] [place] [address] Care Team Providers Care Fertilizer Supervisor Name Role Phone Reji Castro MD Primary Care Provider + [phone] Encounter Details Date Type Department Care Team (Late st Contact Info) Description 08/18/2021 Transcribed Document [facility] [place] [facility] [place] [address] ProviderDelvin MD [address] [place] [address] Social History Tobacco Use Types Packs/Day Years [...] History of obstructive sleep apnea / IMO 52581101 / Confirmed Bioprosthetic mitral valve replacement / SNOMED CT 678774141 / Confirmed Chronic kidney disease / SNOMED CT 6577074955 / Confirmed COPD - Chronic obstructive pulmonary disease / SNOMED CT 789561148 / Confirmed HTN - Hypertension / SNOMED CT 1677477963 / Confirmed HLD - Hyperlipidemia / SNOMED CT 960917953 / Confirmed Amblyopia / SNOMED CT 4880258095 / Confirmed 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 / SNOMED CT 025159132 / Confirmed Myocardial infarction / SNOMED CT 94725687 / Confirmed Atrial fibrillation / SNOMED CT 54217126 / Confirmed GERD - Gastro-esophageal reflux disease / SNOMED CT 0423251169 / Confirmed Diverticulosis / SNOMED CT 4180422424 / Confirmed Hepatomegaly / SNOMED CT 309764341 / Confirmed Renal calculus / SNOMED CT 158107818 / Confirmed Ovarian cyst / SNOMED CT 781957840 / Confirmed Arthritis / SNOMED CT 2081607 / Confirmed Back pain / PNED [id number] / Confirmed Fibromyalgia / SNOMED CT 12927894 / Confirmed Restless legs syndrome / SNOMED CT 29198202 / Confirmed Diabetes mellitus type II / SNOMED CT 59512334 / Confirmed Thyroid disease / SNOMED CT 834385198 / Confirmed Edema / SNOMED CT 234039688 / Confirmed BLE neuropathy hands and feet / Confirmed frequent headache / Confirmed AIHA (autoimmune hemolytic anemia) / SNOMED CT 0304519505 / Confirmed, Active Problems (25) AIHA (autoimmune [...] on filedocumented in this encounter Care Teams Fertilizer Supervisor Relationship Specialty Start Date End Date Reji Castro MD [address] [place] [address] PCP - General Adolescent Medicine 10/02/22 documented as of this encounter
--- OUTSIDE RECORDS SUMMARY | 2025-05-14 10:48 | XMS_ITS | Encounter Summary ---
Author Organization [employer] Address [address] [place] [address] Care Team Providers Care Cook Soup Name Role Phone Reji Castro MD Primary Care Provider + [phone] Encounter Details Date Type Department Care Team (Late st Contact Info) Description 08/23/2021 Transcribed Document [facility] [place] [address] [place], [place] [id number] ProviderDelvin MD [address] [place] [address] Social History Tobacco Use Types Packs/Day Years [...] cefTRIAXone: 2 Gram, 100 mL/Hr, IV Piggyback, [id number] diphenhydrAMINE: 25 mg, Oral, Q6H, PRN: Itching [...] Oral, BID cefTRIAXone 2 Gram, IV Piggyback, U83QUeq citalopram 20 mg tab 40 mg 2 [...] Bioprosthetic mitral valve replacement / SNOMED CT 325226538 / Confirmed Chronic kidney disease / SNOMED CT 1366596715 / Confirmed COPD - Chronic obstructive pulmonary disease / SNOMED CT 259560562 / Confirmed History of obstructive sleep apnea / IMO 62597569 / Confirmed HLD - Hyperlipidemia / SNOMED CT 095849238 / Confirmed HTN - Hypertension / SNOMED CT 9106441388 / Confirmed Canceled: Atrial fibrillation / SNOMED CT 66493843, Active Problems (25) AIHA (autoimmune hemolytic anemia) [...] Monitor GFR adjust medications. Electronically signed by [facility], [facility] Conversion Energy Sales Consultant Cerner at 03/09/2023 8:48 PM CDT documented in this encounter Plan of Treatment Not on file documented as of this encounter Visit Diagnoses Not on filedocumented in this encounter Care Teams Cook Soup Relationship Specialty Start Date End Date Reji Castro MD [address] [place] [address] PCP - General Adolescent Medicine 10/02/22 documented as of this encounter
--- OUTSIDE RECORDS SUMMARY | 2025-05-14 10:48 | XMS_ITS | Encounter Summary ---
Author Organization Healthcare Address [address] [place] [address] Care Team Providers Care Form Builder Helper Name Role Phone Reji Castro MD Primary Care Provider [phone] Encounter Details Date Type Department Care Team (Late st Contact Info) Description 05/07/2025 Orders Only External Location [address] [place] [address] Provider, External Social History Tobacco Use Types [...] place to sleep or slept in a senior care (including now)? No 11/19/2023 Utilities Answer Date [...] documented as of this encounter Care Teams Form Builder Helper Relationship Specialty Start Date End Date Reji Castro MD [address] [place] [address] PCP - General Internal Medicine 12/08/23 documented as of this encounter
--- OUTSIDE RECORDS SUMMARY | 2025-05-14 10:48 | XMS_ITS | Encounter Summary ---
Author Organization [employer] Address [address] [place] [address] Care Team Providers Care Patient Intake Representative Name Role Phone Reji Castro MD Primary Care Provider [phone] Encounter Details Date Type Department Care Team (Late st Contact Info) Description 08/13/2021 Transcribed Document [facility] [place] [facility] [place] [address] ProviderDelvin MD [facility] [place] [address] Social History Tobacco Use Types Packs/Day Years Used Date Smoking Tobacco: Never Assessed Comments Unknown Sex and Gender Information Value Date Recorded Sex Assigned at Not on file Legal Sex Female 4:32 PM CDT Gender Identity Not on file Sexual Orientation Not on file documented as of this encounter Miscellaneous Notes * Cerner Conversion Note - Delvin ProviderMD - 08/13/2021 2:00 AM CDT Construction Rep Details Entered On: 08/13/2021 6:35 EDT Performed [...] on filedocumented in this encounter Care Teams Patient Intake Representative Relationship Specialty Start Date End Date Reji Castro MD [address] [place] [address] PCP - General Adolescent Medicine 10/02/22 documented as of this encounter
--- OUTSIDE RECORDS SUMMARY | 2025-05-14 10:48 | XMS_ITS | Encounter Summary ---
Author Organization [employer] Address [address] [place] [address] Care Team Providers Care Transcriptionist Name Role Phone Reji Castro MD Primary Care Provider [phone] Encounter Details Date Type Department Care Team (Late st Contact Info) Description 08/13/2021 Transcribed Document [facility] [place] [facility] [place], [place] [id number] ProviderDelvin MD [address] [place] [address] Social History Tobacco Use Types Packs/Day Years [...] On: 08/13/2021 10:20 EDT by Reina Tian, PLASTERER FOREMAN Phone Call for Consults Consult Phone Call/Page Attempt : Other: BEATRIS Edward was on floor and was notified by Celina Wilder Rn about consult Consult Reason : paula cath inf., needing removal. Physician Requesting Consult : FAIZA YOUSSEF DO Physician Requested for Consult : NENA PEARSON MD-[facility] Physician Covering for Consult : SHEBA CARTY PA Date and Time Call Returned : 08/14/2021 10:39 EDT Reina Tian, PLASTERER FOREMAN - 08/13/2021 10:37 EDT Electronically signed by Lanny, [facility] Conversion Commercial Leasing Agent Cerner at 03/09/2023 8:38 PM CDT documented in this encounter Plan of Treatment Not on file documented as of this encounter Visit Diagnoses Not on filedocumented in this encounter Care Teams Transcriptionist Relationship Specialty Start Date End Date Reji Castro MD [address] [place] [address] PCP - General Adolescent Medicine 10/02/22 documented as of this encounter
--- OUTSIDE RECORDS SUMMARY | 2025-05-14 10:48 | XMS_ITS | Encounter Summary ---
Author Organization [employer] Address [address] [place] [address] Care Team Providers Care Beekeeper Farmer Name Role Phone Reji Castro MD Primary Care Provider [phone] Encounter Details Date Type Department Care Team (Late st Contact Info) Description 08/17/2021 Transcribed Document [facility] [place] [address] [place] [address] ProviderDelvin MD [address] [place] [address] Social History Tobacco Use Types Packs/Day Years [...] on filedocumented in this encounter Care Teams Beekeeper Farmer Relationship Specialty Start Date End Date Reji Castro MD [address] [place] [address] PCP - General Adolescent Medicine 10/02/22 documented as of this encounter
--- OUTSIDE RECORDS SUMMARY | 2025-05-14 10:48 | XMS_ITS | Encounter Summary ---
Author Organization [employer] Address [address] [place] [address] Care Team Providers Care Administrative Assistant Front Desk Name Role Phone Reji Castro MD Primary Care Provider [phone] Encounter Details Date Type Department Care Team (Late st Contact Info) Description 08/13/2021 Transcribed Document [facility] Family Medicine [address] [place] [address] ProviderDelvin MD [address] [place] [address] Social History Tobacco Use Types Packs/Day Years [...] filedocumented in this encounter Care Teams Administrative Assistant Front Desk Relationship Specialty Start Date End Date Reji Castro MD [address] [place] [address] PCP - General Adolescent Medicine 10/02/22 documented as of this encounter
--- OUTSIDE RECORDS SUMMARY | 2025-05-14 10:48 | XMS_ITS | Encounter Summary ---
Author Organization [employer] Address [address] [place] [address] Care Team Providers Care Hip Hop Dance Instructor Name Role Phone Reji Castro MD Primary Care Provider [phone] Encounter Details Date Type Department Care Team (Late st Contact Info) Description 08/18/2021 Transcribed Document [facility] [place] [facility] [place] [address] ProviderDelvin MD [address] [place] [address] Social History Tobacco Use Types Packs/Day Years [...] 15:44 EDT by MADINA LOVETT, RN - Certified Histologic TechnicianHome Office Representative Progress Note Discharge Arrangements : Patient Post-Acute [...] Rounds? : Yes MADINA LOVETT, RN - Certified Histologic Technician - 08/18/2021 15:44 EDT Narrative Progress Note [...] will need home health and lives in [place]. [facility] home health is a possibility. CM will [...] and send referrals as appropriate. JULIO STEWART, RN-Certified Histologic Technician ED - 08/18/21 10:38:39 MADINA LOVETT, JEREMIAH - Certified Histologic Technician - 08/18/2021 15:44 EDT documented in this encounter Plan of Treatment Not on file documented as of this encounter Visit Diagnoses Not on filedocumented in this encounter Care Teams Hip Hop Dance Instructor Relationship Specialty Start Date End Date Reji Castro MD [address] [place] [address] PCP - General Adolescent Medicine 10/02/22 documented as of this encounter
--- OUTSIDE RECORDS SUMMARY | 2025-05-14 10:48 | XMS_ITS | Encounter Summary ---
Author Organization [employer] Address [address] [place] [address] Care Team Providers Care Hedis Abstractor Name Role Phone Reji Castro MD Primary Care Provider [phone] Encounter Details Date Type Department Care Team (Late st Contact Info) Description 08/18/2021 Transcribed Document [facility] [place] [address] [place] [address] ProviderDelvin MD [address] [place] [address] Social History Tobacco Use Types Packs/Day Years [...] # 0.52 x10(3)/uL (Low) 08/18/2021 06:56 EDT Chaves % 8.7 % 08/18/2021 06:56 EDT Chaves # 0.61 K/uL 08/18/2021 06:56 EDT Eos [...] (High) 08/18/2021 06:56 EDT Electronically signed by [facility], [facility] Conversion Street And Building Decorator Cerner at 03/09/2023 9:00 PM CDT documented in this encounter Plan of Treatment Not on file documented as of this encounter Visit Diagnoses Not on filedocumented in this encounter Care Teams Hedis Abstractor Relationship Specialty Start Date End Date Reji Castro MD [address] [place] [id number] PCP - General Adolescent Medicine 10/02/22 documented as of this encounter
--- OUTSIDE RECORDS SUMMARY | 2025-05-14 10:48 | XMS_ITS | Encounter Summary ---
Author Organization [employer] Address [address] [place] [address] Care Team Providers Care Reimbursement Rep Name Role Phone Reji Castro MD Primary Care Provider [phone] Encounter Details Date Type Department Care Team (Late st Contact Info) Description 08/13/2021 Transcribed Document [facility] [place] [address] [place] [address] ProviderDelvin MD [address] [place] [address] Social History Tobacco Use Types Packs/Day Years [...] Author: CHELI BEASLEY MD-CAR Basic Information Primary Business Enterprise Officer: Dr. Delmar Geronimo Television Mechanic: MD Nestor Subjective NAD Health Status Current [...] mL 700 mg 14 mL, IV Piggyback, [id number] DAPTOmycin + NaCl 0.9% 50 mL 700 mg 14 mL, IV Piggyback, K87PDkp famotidine 20 mg tab 20 mg 1 [...] of motion, Normal strength. Integumentary: Warm, Dry, [place]. Neurologic: Alert, Oriented. Psychiatric: Cooperative, Appropriate mood & affect. Results Review AUG 13 05:19 136 103 H 50 / 102 4.5 30 H 1.60 \ AUG 13 05:19 \ L 8.5 / 5.5 197 / L 28.7 \ Cardiac Markers (Current Encounter/Past 24 Hours) CK 87 Units/Liter 08/13/2021 05:53 ProBNP 587 pg/mL HI 08/13/2021 05:58 Radiology Results (Last 48 hours) [id number] -- 08/11/2021 21:21 CR Chest 1 Vw [...] mechan MV, 4+ TR, no vegetation. Admitted [facility] 07/12, Negative CHUCHO, TTE for vegetation [...] mechanical causes of hemolysis. Obtain records from [facility]. Check haptoglobin, LDH, reticulocyte count. Continue other current CV meds. Electronically signed by Lanny [facility] Conversion Director Of Accounts Payable Cerner at 03/09/2023 8:50 PM CDT documented in this encounter Plan of Treatment Not on file documented as of this encounter Visit Diagnoses Not on filedocumented in this encounter Care Teams Reimbursement Rep Relationship Specialty Start Date End Date Reji Castro MD [address] [place] [address] PCP - General Adolescent Medicine 10/02/22 documented as of this encounter
--- OUTSIDE RECORDS SUMMARY | 2025-05-14 10:48 | XMS_ITS | Encounter Summary ---
Author Organization [employer] Address [address] [place] [address] Care Team Providers Care Health Care Consultant Name Role Phone Reji Castro MD Primary Care Provider [phone] Encounter Details Date Type Department Care Team (Late st Contact Info) Description 08/23/2021 Transcribed Document [facility] [place] [address] [place] [address] ProviderDelvin MD [address] [place] [address] Social History Tobacco Use Types Packs/Day Years [...] On: 08/23/2021 5:00 EDT by Cecilia Lai, Fulfillment Coordinator-Student Nurse Chart Check Powerplans Initiated/Discontinued as Appropriate : Yes All Active Orders Reviewed : Yes Cecilia Lai Fulfillment Coordinator-Student Nurse - 08/23/2021 5:19 EDT documented in this encounter Plan of Treatment Not on file documented as of this encounter Visit Diagnoses Not on filedocumented in this encounter Care Teams Health Care Consultant Relationship Specialty Start Date End Date Reji Castro MD [address] [place] [address] PCP - General Adolescent Medicine 10/02/22 documented as of this encounter
--- OUTSIDE RECORDS SUMMARY | 2025-05-14 10:48 | XMS_ITS | Encounter Summary ---
Author Organization [employer] Address [address] [place] [address] Care Team Providers Care Hazmat Tanker Driver Name Role Phone Reji Castro MD Primary Care Provider [phone] Encounter Details Date Type Department Care Team (Late st Contact Info) Description 08/23/2021 Transcribed Document [facility] [place] [address] [place] [address] ProviderDelvin MD [address] [place] [address] Social History Tobacco Use Types Packs/Day Years Used Date Smoking Tobacco: Never Assessed Comments Unknown Sex and Gender Information Value Date Recorded Sex Assigned at Not on file Legal Sex Female 4:32 PM CDT Gender Identity Not on file Sexual Orientation Not on file documented as of this encounter Miscellaneous Notes * Cerner Conversion Note - Historical ProviderMD - 08/23/2021 2:00 AM CDT Cell Pourer Details Entered On: 08/23/2021 2:15 EDT Performed On: 08/23/2021 2:00 EDT by Cecilia Lai, Practice Director-Student Nurse Order Details Transport Mode Order Detail : Wheelchair Isolation Precautions Order Detail : Standard Precautions Order Detail : 0 IV Order Detail : 1 Oxygen Order Detail : 0 Lift/Transfer : Independent Central Line Order Detail : Yes Room Service : Appropriate Arterial Line : No Patient Needs Meds Crushed/Liquid : No Cecilia Lai, Practice Director-Student Nurse - 08/23/2021 2:15 EDT documented in this encounter Plan of Treatment Not on file documented as of this encounter Visit Diagnoses Not on filedocumented in this encounter Care Teams Hazmat Tanker Driver Relationship Specialty Start Date End Date Reji Castro MD [address] [place] [address] PCP - General Adolescent Medicine 10/02/22 documented as of this encounter
--- OUTSIDE RECORDS SUMMARY | 2025-05-14 10:48 | XMS_ITS | Encounter Summary ---
Author Organization [employer] Address [address] [place] [address] Care Team Providers Care Shop Teacher Name Role Phone Reji Castro MD Primary Care Provider [phone] Encounter Details Date Type Department Care Team (Late st Contact Info) Description 08/17/2021 Transcribed Document [facility] [place] [facility] [place] [address] ProviderDelvin MD [facility] [place] [address] Social History Tobacco Use Types Packs/Day Years [...] her port could not be accessed. Her relish maker aspirated fluid from the port that was evidently purulent. I have not yet been able to track down that culture. After the aspiration she developed fever to 103, severe CHEUNG, myalgias and arthralgias. She was admitted to [facility]. She was in the hospital for [...] subsequently contacted and told to report to [facility] because she had + blood cutures concerning for an infected portacath +/- PVE. I contacted the micro lab at 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 Integumentary: Warm, [place]. Neurologic: Alert, Oriented, No focal deficits. Psychiatric: [...] of paula cath Electronically signed by Lanny, [facility] Conversion Shellfish Sorter Cerner at 03/09/2023 8:42 PM CDT documented in this encounter Plan of Treatment Not on file documented as of this encounter Visit Diagnoses Not on filedocumented in this encounter Care Teams Shop Teacher Relationship Specialty Start Date End Date Reji Castro MD [address] [place] [address] PCP - General Adolescent Medicine 10/02/22 documented as of this encounter
--- OUTSIDE RECORDS SUMMARY | 2025-05-14 10:48 | XMS_ITS | Encounter Summary ---
Author Organization [employer] Address [address] [place] [address] Care Team Providers Care Furnace Attendant Name Role Phone Reji Castro MD Primary Care Provider [phone] Encounter Details Date Type Department Care Team (Late st Contact Info) Description 08/23/2021 Transcribed Document [facility] [place] [facility] [place] [address] ProviderDelvin MD [address] [place] [address] Social History Tobacco Use Types Packs/Day Years [...] Warfarin HPI: 56 y/o F presenting to [facility] with history of COPD, atrial [...] cefTRIAXone: 2 Gram, 100 mL/Hr, IV Piggyback, S46ZNit. citalopram: 40 mg, Oral, Daily. diphenhydrAMINE: 25 [...] you, Noy Garrett, PharmD PGY-1 Resident Pager #[phone] Electronically signed by [facility], [facility] Conversion Tube Roller Cerner at 03/09/2023 8:59 PM CDT documented in this encounter Plan of Treatment Not on file documented as of this encounter Visit Diagnoses Not on filedocumented in this encounter Care Teams Furnace Attendant Relationship Specialty Start Date End Date Reji Castro MD [address] [place] [address] PCP - General Adolescent Medicine 10/02/22 documented as of this encounter
--- OUTSIDE RECORDS SUMMARY | 2025-05-14 10:48 | XMS_ITS | Encounter Summary ---
Author Organization [employer] Address [address] [place] [address] Care Team Providers Care Emissions Engineer Name Role Phone Reji Castro MD Primary Care Provider [phone] Encounter Details Date Type Department Care Team (Late st Contact Info) Description 08/18/2021 Transcribed Document [facility] [place] [address] [place] [address] ProviderDelvin MD [address] [place] [address] Social History Tobacco Use Types Packs/Day Years [...] Spiritual Care Intervention/Comment/Summary Points : PreSurgery visit Mormonism Preference : Quaker FAIZA ARIZA - 09/02/2021 12:43 EDT documented in this encounter Plan of Treatment Not on file documented as of this encounter Visit Diagnoses Not on filedocumented in this encounter Care Teams Emissions Engineer Relationship Specialty Start Date End Date Reji Castro MD [address] [place] [address] PCP - General Adolescent Medicine 10/02/22 documented as of this encounter
--- OUTSIDE RECORDS SUMMARY | 2025-05-14 10:48 | XMS_ITS | Encounter Summary ---
Author Organization [employer] Address [address] [place] [address] Care Team Providers Care Nursery Rn Name Role Phone Reji Castro MD Primary Care Provider [phone] Encounter Details Date Type Department Care Team (Late st Contact Info) Description 08/17/2021 Transcribed Document [facility] [place] [facility] [place] [address] ProviderDelvin MD [address] [place] [address] Social History Tobacco Use Types Packs/Day Years [...] on filedocumented in this encounter Care Teams Nursery Rn Relationship Specialty Start Date End Date Reji Castro MD [address] [place] [address] PCP - General Adolescent Medicine 10/02/22 documented as of this encounter
--- OUTSIDE RECORDS SUMMARY | 2025-05-14 10:48 | XMS_ITS | Encounter Summary ---
Author Organization [employer] Address [address] [place] [address] Care Team Providers Care Tongue And Groove Machine Setter Name Role Phone Reji Castro MD Primary Care Provider [phone] Encounter Details Date Type Department Care Team (Late st Contact Info) Description 08/24/2021 Transcribed Document [facility] Radiology [address] [place] [address] Loren Solorzano MD [address] [place] [address] [address] [place] [id number] Social History Tobacco Use Types Packs/Day Years [...] cefTRIAXone: 2 Gram, 100 mL/Hr, IV Piggyback, [id number] diphenhydrAMINE: 25 mg, Oral, Q6H, PRN: Itching [...] Oral, BID cefTRIAXone 2 Gram, IV Piggyback, [id number] citalopram 20 mg tab 40 mg 2 [...] Bioprosthetic mitral valve replacement / SNOMED CT 127353949 / Confirmed Chronic kidney disease / SNOMED CT 2993092364 / Confirmed COPD - Chronic obstructive pulmonary disease / SNOMED CT 561869805 / Confirmed History of obstructive sleep apnea / IMO 11113987 / Confirmed HLD - Hyperlipidemia / SNOMED CT 537051923 / Confirmed HTN - Hypertension / SNOMED CT 9868125710 / Confirmed Canceled: Atrial fibrillation / SNOMED CT 83517086, Active Problems (25) AIHA (autoimmune hemolytic anemia) [...] 26.6 \ Radiology Results (Last 48 hours) [id number] -- 08/11/2021 21:21 CR Chest 1 Vw [...] 08/23/21 21:00:00 EDT, 08/23/21 12:42:00 EDT MAURA CARORLL MD Discontinued Medications: spironolactone 50 mg, Oral, Tab, BID, Routine, Start 08/20/21 21:00:00 EDT, 08/20/21 16:52:00 EDT MAURA CARROLL MD Impression and Plan # MSSA bacteremia cultures positive from OSH Patient has mitral valve replacement as well as multiple sites of metal in her body?CUHCHO neg for endocarditis ID following: Cefazolin, Daptomycin?will [...] Hold home meds SSI #Depression Celexa #Pain [place] 10 mg every 6 hours as needed CODE STATUS. Full code Dispo: Given patient with history of multiple blood transfusion we will keep patient in the hospital on heparin drip and Coumadin till INR therapeutic need IV abx, at least until 09/08. Discussed with skilled nursing case manager. and pharmcy Time spent 25 minutes documented in this encounter Plan of Treatment Not on file documented as of this encounter Visit Diagnoses Not on filedocumented in this encounter Care Teams Tongue And Groove Machine Setter Relationship Specialty Start Date End Date Reji Castro MD [address] [place] [id number] PCP - General Adolescent Medicine 10/02/22 documented as of this encounter
--- OUTSIDE RECORDS SUMMARY | 2025-05-14 10:48 | XMS_ITS | Encounter Summary ---
Author Organization [employer] Address [address] [place] [address] Care Team Providers Care Clinical Data Specialist Name Role Phone Reji Castro MD Primary Care Provider [phone] Encounter Details Date Type Department Care Team (Late st Contact Info) Description 08/13/2021 Transcribed Document [facility] [place] [facility] [place] [address] ProviderDelvin MD [address] [place] [address] Social History Tobacco Use Types Packs/Day Years [...] On: 08/13/2021 9:56 EDT by Reina Tian, ARTIST MODEL Phone Call for Consults Consult Phone Call/Page Attempt : First call Consult Reason : paula cath infection, needing removal Physician Requested for Consult : Elieser VERNON MD-TATYANA Date and Time Call Returned : 08/14/2021 10:08 EDT Reina Tian, ARTIST MODEL - 08/13/2021 10:09 EDT documented in this encounter Plan of Treatment Not on file documented as of this encounter Visit Diagnoses Not on filedocumented in this encounter Care Teams Clinical Data Specialist Relationship Specialty Start Date End Date Reji Castro MD [address] [place] [address] PCP - General Adolescent Medicine 10/02/22 documented as of this encounter
--- OUTSIDE RECORDS SUMMARY | 2025-05-14 10:48 | XMS_ITS | Encounter Summary ---
Author Organization [employer] Address [address] [place] [address] Care Team Providers Care Seed Potato Cutter Name Role Phone Reji Castro MD Primary Care Provider [phone] Encounter Details Date Type Department Care Team (Late st Contact Info) Description 08/24/2021 Transcribed Document [facility] [place] [address] [place], [place] [id number] ProviderDelvin MD [address] [place] [address] Social History Tobacco Use Types Packs/Day Years [...] cefTRIAXone: 2 Gram, 100 mL/Hr, IV Piggyback, [id number] diphenhydrAMINE: 25 mg, Oral, Q6H, PRN: Itching [...] Oral, BID cefTRIAXone 2 Gram, IV Piggyback, [id number] citalopram 20 mg tab 40 mg 2 [...] Bioprosthetic mitral valve replacement / SNOMED CT 884778245 / Confirmed Chronic kidney disease / SNOMED CT 8972542388 / Confirmed COPD - Chronic obstructive pulmonary disease / SNOMED CT 618477672 / Confirmed History of obstructive sleep apnea / IMO 20922023 / Confirmed HLD - Hyperlipidemia / SNOMED CT 994145279 / Confirmed HTN - Hypertension / SNOMED CT 2497894253 / Confirmed Canceled: Atrial fibrillation / SNOMED CT 21769109, Active Problems (25) AIHA (autoimmune hemolytic anemia) [...] GFR adjust medications. Electronically signed by Lanny, [facility] Conversion Mine Expert Cerner at 03/09/2023 8:38 PM CDT documented in this encounter Plan of Treatment Not on file documented as of this encounter Visit Diagnoses Not on filedocumented in this encounter Care Teams Seed Potato Cutter Relationship Specialty Start Date End Date Reji Castro MD [address] [place] [id number] PCP - General Adolescent Medicine 10/02/22 documented as of this encounter
--- OUTSIDE RECORDS SUMMARY | 2025-05-14 10:48 | XMS_ITS | Encounter Summary ---
Author Organization [employer] Address [address] [place] [address] Care Team Providers Care Dolphin Researcher Name Role Phone Reji Castro MD Primary Care Provider [phone] Encounter Details Date Type Department Care Team (Late st Contact Info) Description 08/18/2021 Transcribed Document [facility] [place] Medicine [address] [place] [address] ProviderDelvin MD [address] [place] [address] Social History Tobacco Use Types Packs/Day Years [...] on filedocumented in this encounter Care Teams Dolphin Researcher Relationship Specialty Start Date End Date Reji Castro MD [address] [place] [address] PCP - General Adolescent Medicine 10/02/22 documented as of this encounter
--- OUTSIDE RECORDS SUMMARY | 2025-05-14 10:48 | XMS_ITS | Encounter Summary ---
Author Organization [employer] Address [address] [place] [address] Care Team Providers Care Bleach Boiler Packer Name Role Phone Reji Castro MD Primary Care Provider [phone] Encounter Details Date Type Department Care Team (Late st Contact Info) Description 08/17/2021 Transcribed Document [facility] [place] [facility] [place] [address] ProviderDelvin MD [address] [place] [address] Social History Tobacco Use Types Packs/Day Years [...] Warfarin HPI: 56 y/o F presenting to [facility] with history of COPD, [...] mg, 14 mL, 128 mL/Hr, IV Piggyback, [id number]. diphenhydrAMINE: 50 mg, IV Push, On-CALL, PRN: [...] Thank you, Andrea Moraes, PharmD PGY1 Hot Molder Pager: [phone] documented in this encounter Plan of Treatment Not on file documented as of this encounter Visit Diagnoses Not on filedocumented in this encounter Care Teams Bleach Boiler Packer Relationship Specialty Start Date End Date Reji Castro MD [address] [place] [id number] PCP - General Adolescent Medicine 10/02/22 documented as of this encounter
--- OUTSIDE RECORDS SUMMARY | 2025-05-14 10:48 | XMS_ITS | Encounter Summary ---
Author Organization [employer] Address [address] [place] [address] Care Team Providers Care Public Administration Professor Name Role Phone Reji Castro MD Primary Care Provider [phone] Encounter Details Date Type Department Care Team (Late st Contact Info) Description 08/13/2021 Transcribed Document [facility] [place] [facility] [place] [address] ProviderDelvin MD [address] [place] [address] Social History Tobacco Use Types Packs/Day Years [...] Warfarin HPI: 56 y/o F presenting to [facility] with history of COPD, atrial fibrillation, CKD [...] Encounter/Past 24 Hours) Creatinine Level 1.60 mg/dL NE 08/13/2021 06:13 Bun/Creatinine 31.2 NE 08/13/2021 06:13 Est. CrCl: 61 mL/min Intake [...] questions. Thank you, Andrea Moraes, PharmD PGY1 Acquisition Editor Pager: [phone] [phone] documented in this encounter Plan of Treatment Not on file documented as of this encounter Visit Diagnoses Not on filedocumented in this encounter Care Teams Public Administration Professor Relationship Specialty Start Date End Date Reji Castro MD [address] [place] [id number] PCP - General Adolescent Medicine 10/02/22 documented as of this encounter
--- OUTSIDE RECORDS SUMMARY | 2025-05-14 10:48 | XMS_ITS | Encounter Summary ---
Author Organization [employer] Address [address] [place] [address] Care Team Providers Care Grain Operations Manager Name Role Phone Reji Castro MD Primary Care Provider [phone] Encounter Details Date Type Department Care Team (Late st Contact Info) Description 08/18/2021 Transcribed Document [facility] [place] [facility] [place] [address] ProvidereDlvin MD [facility] [place] [address] Social History Tobacco Use Types Packs/Day Years [...] her port could not be accessed. Her blind hooker aspirated fluid from the port that was [...] antibiotics. On 08/08 she presented to a [facility] after she developed severe CHEUNG and myalgias w/o prominent fever. She was subsequently contacted and told to report to [facility] because she had + blood cutures concerning for an infected portacath +/- PVE. 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 Integumentary: Warm, [place]. Neurologic: Alert, Oriented, No focal deficits. Psychiatric: [...] length with patient Electronically signed by Lanny [facility] Conversion Herbologist Cerner at 03/09/2023 8:49 PM CDT documented in this encounter Plan of Treatment Not on file documented as of this encounter Visit Diagnoses Not on filedocumented in this encounter Care Teams Grain Operations Manager Relationship Specialty Start Date End Date Reji Castro MD [address] [place] [id number] PCP - General Adolescent Medicine 10/02/22 documented as of this encounter
--- OUTSIDE RECORDS SUMMARY | 2025-05-14 10:48 | XMS_ITS | Encounter Summary ---
Author Organization [employer] Address [address] [place] [address] Care Team Providers Care Talent Sourcer Name Role Phone Reji Castro MD Primary Care Provider [phone] Encounter Details Date Type Department Care Team (Late st Contact Info) Description 08/23/2021 Transcribed Document [facility] Radiology 1 [place] [address] Loren Solorzano MD [address] [place] [address] [address] [place] [id number] Social History Tobacco Use Types Packs/Day Years [...] cefTRIAXone: 2 Gram, 100 mL/Hr, IV Piggyback, A56SWos diphenhydrAMINE: 25 mg, Oral, Q6H, PRN: Itching [...] Oral, BID cefTRIAXone 2 Gram, IV Piggyback, R34VBus citalopram 20 mg tab 40 mg 2 [...] Bioprosthetic mitral valve replacement / SNOMED CT 667790334 / Confirmed Chronic kidney disease / SNOMED CT 8997431951 / Confirmed COPD - Chronic obstructive pulmonary disease / SNOMED CT 010032922 / Confirmed History of obstructive sleep apnea / IMO 69868211 / Confirmed HLD - Hyperlipidemia / SNOMED CT 687301023 / Confirmed HTN - Hypertension / SNOMED CT 7598090009 / Confirmed Canceled: Atrial fibrillation / SNOMED CT 58209446, Active Problems (25) AIHA (autoimmune hemolytic anemia) [...] 26.0 \ Radiology Results (Last 48 hours) [id number] -- 08/11/2021 21:21 CR Chest 1 Vw [...] Hold home meds SSI #Depression Celexa #Pain [place] 10 mg every 6 hours as needed CODE STATUS. Full code Dispo: Given patient with history of multiple transfusion we will keep patient in the hospital on heparin drip and Coumadin till INR therapeutic need IV abx, at least until 09/08. Discussed with sample case porter. and pharmcy Time spent 25 minutes documented in this encounter Plan of Treatment Not on file documented as of this encounter Visit Diagnoses Not on filedocumented in this encounter Care Teams Talent Sourcer Relationship Specialty Start Date End Date Reji Castro MD [address] [place] [id number] PCP - General Adolescent Medicine 10/02/22 documented as of this encounter
--- OUTSIDE RECORDS SUMMARY | 2025-05-14 10:48 | XMS_ITS | Encounter Summary ---
Author Organization [employer] Address [address] [place] [address] Care Team Providers Care Acid Adjuster Name Role Phone Reji Castro MD Primary Care Provider [phone] Encounter Details Date Type Department Care Team (Late st Contact Info) Description 08/23/2021 Transcribed Document [facility] [place] [address] [place] [address] ProviderDelvin MD [address] [place] [address] Social History Tobacco Use Types Packs/Day Years [...] 08/23/2021 18:47 EDT Electronically signed by Lanny [facility] Conversion Athletics Director Cerner at 03/09/2023 8:57 PM CDT documented in this encounter Plan of Treatment Not on file documented as of this encounter Visit Diagnoses Not on filedocumented in this encounter Care Teams Acid Adjuster Relationship Specialty Start Date End Date Reji Castro MD [address] [place] [address] PCP - General Adolescent Medicine 10/02/22 documented as of this encounter
[2025-05-14 11:06] VITALS: BP 127/73; PULSE 78; RESP 16; TEMP 36.7; O2SAT 98
--- OUTSIDE RECORDS SUMMARY | 2025-05-14 11:46 | XMS_ITS | CCD ---
Author Organization Unknown Care Team Providers Care Window Machine Operator Name Role Phone Non Engaged, [facility] Primary Care Provider Unav ailable Unavailable Chronic Care Management Unavaila ble Summary Purpose DataExchange Insurance Providers Payer name Policy type / Coverage type Covered alliance party ID Effective Begin Date Effective End Date [facility] [id number] Unknown Unknown Family History Family History data not found Medication Administered No Medication Administered data Reason For Visit No Reason For Visit data Medical Equipment No Medical Equipment data Advance Directives No Advance Directive data
--- OUTSIDE RECORDS SUMMARY | 2025-05-14 11:48 | XMS_ITS | CCD ---
Author Organization Unknown Care Team Providers Care Software Engineer Web Applications Name Role Phone Non Engaged, [employer] Primary Care Provider Unav ailable Unavailable Chronic Care Management Unavaila ble Summary Purpose DataExchange Insurance Providers Payer name Policy type / Coverage type Covered libertarian ID Effective Begin Date Effective End Date [facility] [id number] Unknown Unknown Family History Family History data not found Medication Administered No Medication Administered data Reason For Visit No Reason For Visit data Medical Equipment No Medical Equipment data Advance Directives No Advance Directive data
== END 2025-05-14 11:10 | disposition home or self-care (01) ==
LOC: INF 10:24
PROVIDERS: PCP Internal Medicine Adolescent Medicine; Visit Provider Internal Medicine Medical Oncology
DX: D59.9 Acquired hemolytic anemia, unspecified (principal)
CPT/HCPCS: 96374; 96365; J1642; Q0138

== ENCOUNTER 2025-05-17 10:32 | Outpatient (CLI) | payer MEDICARE, SELFPAY ==
--- OUTSIDE RECORDS SUMMARY | 2025-05-17 10:35 | XMS_ITS | Encounter Summary ---
Author Organization [employer] Address [address] [place] [address] Care Team Providers Care Outpatient Program Coordinator Name Role Phone Reji Castro MD Primary Care Provider [phone] Encounter Details Date Type Department Care Team (Late st Contact Info) Description 08/11/2021 Transcribed Document [facility] [place] [address] [place] [address] ProviderDelvin MD [address] [place] [address] Social History Tobacco Use Types Packs/Day Years [...] Communication Barrier : None Primary Language : Burmese Any Spiritual/Cultural Needs or Requests : No [...] Neurologic ASMT, ED Neurologic Assessment WDL : [facility] MARIPOSA JACQUES RN - 08/11/2021 [...] on filedocumented in this encounter Care Teams Outpatient Program Coordinator Relationship Specialty Start Date End Date Reji Castro MD [address] [place] [address] PCP - General Adolescent Medicine 10/02/22 documented as of this encounter
--- OUTSIDE RECORDS SUMMARY | 2025-05-17 10:35 | XMS_ITS | Encounter Summary ---
Author Organization [employer] Address [address] [place] [address] Care Team Providers Care Purchasing Specialist Name Role Phone Reji Castro MD Primary Care Provider [phone] Encounter Details Date Type Department Care Team (Late st Contact Info) Description 08/11/2021 Transcribed Document [facility] [place] [facility] [place] [address] ProviderDelvin MD [facility] [place] [address] Social History Tobacco Use Types Packs/Day Years [...] you, Noy Garrett, PharmD PGY-1 Resident Pager [phone] documented in this encounter Plan of Treatment Not on file documented as of this encounter Visit Diagnoses Not on filedocumented in this encounter Care Teams Purchasing Specialist Relationship Specialty Start Date End Date Reji Castro MD [address] [place] [address] PCP - General Adolescent Medicine 10/02/22 documented as of this encounter
--- OUTSIDE RECORDS SUMMARY | 2025-05-17 10:35 | XMS_ITS | Encounter Summary ---
Author Organization [employer] Address [address] [place] [address] Care Team Providers Care Scarf And Anneal Operator Name Role Phone Reji Castro MD Primary Care Provider [phone] Encounter Details Date Type Department Care Team (Late st Contact Info) Description 08/26/2021 Transcribed Document [facility] [place] [facility] [place] [address] [place] [address] ProviderDelvin MD [address] [place] [address] Social History Tobacco Use Types Packs/Day Years Used Date Smoking Tobacco: Never Assessed Comments Unknown Sex and Gender Information Value Date Recorded Sex Assigned at Not on file Legal Sex Female 4:32 PM CDT Gender Identity Not on file Sexual Orientation Not on file documented as of this encounter Miscellaneous Notes * Cerner Conversion Note - Delvin ProviderMD - 08/26/2021 2:00 AM CDT Plans Examiner Details Entered On: 08/26/2021 4:16 EDT Performed [...] on filedocumented in this encounter Care Teams Scarf And Anneal Operator Relationship Specialty Start Date End Date Reji Castro MD [address] [place] [address] PCP - General Adolescent Medicine 10/02/22 documented as of this encounter
--- OUTSIDE RECORDS SUMMARY | 2025-05-17 10:35 | XMS_ITS | Encounter Summary ---
Author Organization [employer] Address [address] [place] [address] Care Team Providers Care Operator Weapon Locating Radar Name Role Phone Reji Castro MD Primary Care Provider [phone] Encounter Details Date Type Department Care Team (Late st Contact Info) Description 08/11/2021 Transcribed Document [facility] [place] [facility] [place] [address] ProviderDelvin MD [address] [place] [id number] Social History Tobacco Use Types Packs/Day Years [...] on filedocumented in this encounter Care Teams Operator Weapon Locating Radar Relationship Specialty Start Date End Date Reji Castro MD [address] [place] [address] PCP - General Adolescent Medicine 11/11/22 documented as of this encounter
--- OUTSIDE RECORDS SUMMARY | 2025-05-17 10:35 | XMS_ITS | Encounter Summary ---
Author Organization [employer] Address [address] [place] [address] Care Team Providers Care Chicken And Fish Cleaner Name Role Phone Reji Castro MD Primary Care Provider [phone] Encounter Details Date Type Department Care Team (Late st Contact Info) Description 08/26/2021 Transcribed Document [facility] [place] [address] [place] [address] ProviderDelvin MD [address] [place] [address] Social History Tobacco Use Types Packs/Day Years [...] 4:16 EDT Electronically signed by Lanny [facility] Conversion Certified Solid Waste Facility Operator Cerner at 03/09/2023 8:32 PM CDT documented in this encounter Plan of Treatment Not on file documented as of this encounter Visit Diagnoses Not on filedocumented in this encounter Care Teams Chicken And Fish Cleaner Relationship Specialty Start Date End Date Reji Castro MD [address] [place] [address] PCP - General Adolescent Medicine 10/02/22 documented as of this encounter
--- OUTSIDE RECORDS SUMMARY | 2025-05-17 10:35 | XMS_ITS | Encounter Summary ---
Author Organization [employer] Address [address] [place] [address] Care Team Providers Care Power Plant Electrician Name Role Phone Reji Castro MD Primary Care Provider [phone] Encounter Details Date Type Department Care Team (Late st Contact Info) Description 08/20/2021 Transcribed Document [facility] [place] [address] [place] [address] ProviderDelvin MD [address] [place] [address] Social History Tobacco Use Types Packs/Day Years [...] filedocumented in this encounter Care Teams Power Plant Electrician Relationship Specialty Start Date End Date Reji Castro MD [address] [place] [id number] PCP - General Adolescent Medicine 10/02/22 documented as of this encounter
--- OUTSIDE RECORDS SUMMARY | 2025-05-17 10:35 | XMS_ITS | Encounter Summary ---
Author Organization [employer] Address [address] [place] [address] Care Team Providers Care Technical Support Analyst Name Role Phone Reji Castro MD Primary Care Provider [phone] Encounter Details Date Type Department Care Team (Late st Contact Info) Description 08/20/2021 Transcribed Document [facility] [place] [facility] [place] [address] ProviderDelvin MD [facility] [place] [address] Social History Tobacco Use Types Packs/Day Years Used Date Smoking Tobacco: Never Assessed Comments Unknown Sex and Gender Information Value Date Recorded Sex Assigned at Not on file Legal Sex Female 4:32 PM CDT Gender Identity Not on file Sexual Orientation Not on file documented as of this encounter Miscellaneous Notes * Cerner Conversion Note - Delvin ProviderMD - 08/20/2021 2:00 AM CDT Tension Worker Details Entered On: 08/20/2021 3:08 EDT Performed [...] on filedocumented in this encounter Care Teams Technical Support Analyst Relationship Specialty Start Date End Date Reji Castro MD [address] [place] [address] PCP - General Adolescent Medicine 10/02/22 documented as of this encounter
--- OUTSIDE RECORDS SUMMARY | 2025-05-17 10:35 | XMS_ITS | Encounter Summary ---
Author Organization [employer] Address [address] [place] [address] Care Team Providers Care Supervisor Product Inspection Name Role Phone Reji Castro MD Primary Care Provider [phone] Encounter Details Date Type Department Care Team (Late st Contact Info) Description 08/20/2021 Transcribed Document [facility] [place] [address] [place] [address] ProviderDelvin MD [address] [place] [address] Social History Tobacco Use Types Packs/Day Years [...] 08/20/2021 16:48 EDT Electronically signed by Lanny [facility] Conversion Site Safety Manager Cerner at 03/09/2023 8:32 PM CDT documented in this encounter Plan of Treatment Not on file documented as of this encounter Visit Diagnoses Not on filedocumented in this encounter Care Teams Supervisor Product Inspection Relationship Specialty Start Date End Date Reji Castro MD [address] [place] [address] PCP - General Adolescent Medicine 10/02/22 documented as of this encounter
--- OUTSIDE RECORDS SUMMARY | 2025-05-17 10:35 | XMS_ITS | Encounter Summary ---
Author Organization [employer] Address [address] [place] [address] Care Team Providers Care Package Yarns Drying Machine Operator Name Role Phone Reji Castro MD Primary Care Provider [phone] Encounter Details Date Type Department Care Team (Late st Contact Info) Description 08/11/2021 Transcribed Document [facility] [place] [address] [place] [address] ProviderDelvin MD [facility] [place] [address] Social History Tobacco Use Types Packs/Day Years [...] on filedocumented in this encounter Care Teams Package Yarns Drying Machine Operator Relationship Specialty Start Date End Date Reji Castro MD [address] [place] [id number] PCP - General Adolescent Medicine 10/02/22 documented as of this encounter
--- OUTSIDE RECORDS SUMMARY | 2025-05-17 10:35 | XMS_ITS | Encounter Summary ---
Author Organization [employer] Address [address] [place] [address] Care Team Providers Care Sealer Operator Name Role Phone Reji Castro MD Primary Care Provider [phone] Encounter Details Date Type Department Care Team (Late st Contact Info) Description 08/20/2021 Transcribed Document [facility] [place] Family Medicine [address] [place] [address] ProviderDelvin [place] [address] Social History Tobacco Use Types Packs/Day Years [...] # 0.38 x10(3)/uL (Low) 08/20/2021 07:38 EDT [place] % 7.9 % 08/20/2021 07:38 EDT [place] # 0.64 K/uL 08/20/2021 07:38 EDT [place]os [...] (Critical) 08/20/2021 15:16 EDT Electronically signed by [facility], [facility] Conversion Meat Selector Cerner at 03/09/2023 8:31 PM CDT documented in this encounter Plan of Treatment Not on file documented as of this encounter Visit Diagnoses Not on filedocumented in this encounter Care Teams Sealer Operator Relationship Specialty Start Date End Date Reji Castro MD [address] [place] [id number] PCP - General Adolescent Medicine 10/02/22 documented as of this encounter
--- OUTSIDE RECORDS SUMMARY | 2025-05-17 10:35 | XMS_ITS | Encounter Summary ---
Author Organization [employer] Address [address] [place] [address] Care Team Providers Care Electrocardiogram Technician Name Role Phone Reji Castro MD Primary Care Provider [phone] Encounter Details Date Type Department Care Team (Late st Contact Info) Description 08/26/2021 Transcribed Document [facility] [place] [address] [place] [address] ProviderDelvin MD [address] [place] [address] Social History Tobacco Use Types Packs/Day Years [...] cefTRIAXone: 2 Gram, 100 mL/Hr, IV Piggyback, [id number] diphenhydrAMINE: 25 mg, Oral, Q6H, PRN: Itching [...] Oral, BID cefTRIAXone 2 Gram, IV Piggyback, [id number] citalopram 20 mg tab 40 mg 2 [...] Bioprosthetic mitral valve replacement / SNOMED CT 103663112 / Confirmed Chronic kidney disease / SNOMED CT 6650483576 / Confirmed COPD - Chronic obstructive pulmonary disease / SNOMED CT 755297084 / Confirmed History of obstructive sleep apnea / IMO 03146284 / Confirmed HLD - Hyperlipidemia / SNOMED CT 440771915 / Confirmed HTN - Hypertension / SNOMED CT 4104791105 / Confirmed Canceled: Atrial fibrillation / SNOMED CT 47190290, Active Problems (25) AIHA (autoimmune hemolytic anemia) [...] 29.0 \ Radiology Results (Last 48 hours) [id number] -- 08/11/2021 21:21 CR Chest 1 Vw [...] Hold home meds SSI Depression Celexa Pain [place] 10 mg every 6 hours as needed CODE STATUS. Full code Dispo: H/H stable, neg trops, clinically better need therapeutic inr for discharge, pharm managing. hopefully in am Time spent 26 minutes documented in this encounter Plan of Treatment Not on file documented as of this encounter Visit Diagnoses Not on filedocumented in this encounter Care Teams Electrocardiogram Technician Relationship Specialty Start Date End Date Reji Castro MD [address] [place] [address] PCP - General Adolescent Medicine 10/02/22 documented as of this encounter
--- OUTSIDE RECORDS SUMMARY | 2025-05-17 10:35 | XMS_ITS | Encounter Summary ---
Author Organization [employer] Address [address] [place] [address] Care Team Providers Care Wound Care Coordinator Name Role Phone Reji Castro MD Primary Care Provider [phone] Encounter Details Date Type Department Care Team (Late st Contact Info) Description 08/15/2021 Transcribed Document [facility] [place] [facility] [place] [address] ProviderDelvin MD [address] [place] [address] Social History Tobacco Use Types Packs/Day Years [...] On: 08/15/2021 10:34 EDT by JULIO STEWART, RN-Pricing Coordinator ED Care Management Progress Note Discharge Arrangements [...] : Clinical Condition of Patient JULIO STEWART, RN-Pricing Coordinator ED - 08/18/2021 10:34 EDT Narrative Progress [...] and send referrals as appropriate. JULIO STEWART, RN-Pricing Coordinator ED - 08/18/2021 10:34 EDT Electronically signed by Lanny [facility] Conversion Commanding Officer Traffic Division Cerner at 03/09/2023 8:33 PM CDT documented in this encounter Plan of Treatment Not on file documented as of this encounter Visit Diagnoses Not on filedocumented in this encounter Care Teams Wound Care Coordinator Relationship Specialty Start Date End Date Reji Castro MD [address] [place] [address] PCP - General Adolescent Medicine 10/02/22 documented as of this encounter
--- OUTSIDE RECORDS SUMMARY | 2025-05-17 10:35 | XMS_ITS | Encounter Summary ---
Author Organization [employer] Address [address] [place] [address] Care Team Providers Care Cutting Inspector Name Role Phone Reji Castro MD Primary Care Provider [phone] Encounter Details Date Type Department Care Team (Late st Contact Info) Description 08/26/2021 Transcribed Document [facility] [place] [address] [place] [address] ProviderDelvin MD [address] [place] [address] Social History Tobacco Use Types Packs/Day Years [...] cefTRIAXone: 2 Gram, 100 mL/Hr, IV Piggyback, [id number] diphenhydrAMINE: 25 mg, Oral, Q6H, PRN: Itching [...] Oral, BID cefTRIAXone 2 Gram, IV Piggyback, [id number] citalopram 20 mg tab 40 mg 2 [...] Bioprosthetic mitral valve replacement / SNOMED CT 415016981 / Confirmed Chronic kidney disease / SNOMED CT 2220462501 / Confirmed COPD - Chronic obstructive pulmonary disease / SNOMED CT 741427133 / Confirmed History of obstructive sleep apnea / IMO 05813176 / Confirmed HLD - Hyperlipidemia / SNOMED CT 332924335 / Confirmed HTN - Hypertension / SNOMED CT 8883024860 / Confirmed Canceled: Atrial fibrillation / SNOMED CT 83868017, Active Problems (25) AIHA (autoimmune hemolytic anemia) [...] Monitor GFR adjust medications. Electronically signed by [facility], [facility] Conversion Frame Wirer Cerner at 03/09/2023 8:56 PM CDT documented in this encounter Plan of Treatment Not on file documented as of this encounter Visit Diagnoses Not on filedocumented in this encounter Care Teams Cutting Inspector Relationship Specialty Start Date End Date Reji Castro MD [address] [place] [id number] PCP - General Adolescent Medicine 10/02/22 documented as of this encounter
--- OUTSIDE RECORDS SUMMARY | 2025-05-17 10:35 | XMS_ITS | Encounter Summary ---
Author Organization [employer] Address [address] [place] [address] Care Team Providers Care Basketballs And Footballs Reverser Name Role Phone Reji Castro MD Primary Care Provider [phone] Encounter Details Date Type Department Care Team (Late st Contact Info) Description 08/26/2021 Transcribed Document [facility] [place] [facility] [place] [address] ProviderDelvin MD [address] [place] [address] Social History Tobacco Use Types Packs/Day Years [...] Warfarin HPI: 56 y/o F presenting to [facility] with history of COPD, atrial [...] 2). Daily INR Will followZeyad PharmD, BCPS [phone] Electronically signed by Lanny, [facility] Conversion Electromechanical Inspector Cerner at 03/09/2023 8:52 PM CDT documented in this encounter Plan of Treatment Not on file documented as of this encounter Visit Diagnoses Not on filedocumented in this encounter Care Teams Basketballs And Footballs Reverser Relationship Specialty Start Date End Date Reji Castro MD [address] [place] [address] PCP - General Adolescent Medicine 10/02/22 documented as of this encounter
--- OUTSIDE RECORDS SUMMARY | 2025-05-17 10:35 | XMS_ITS | Encounter Summary ---
Author Organization [employer] Address [address] [place] [address] Care Team Providers Care Music Publisher Name Role Phone Reji Castro MD Primary Care Provider [phone] Encounter Details Date Type Department Care Team (Late st Contact Info) Description 08/11/2021 Transcribed Document [facility] [place] [address] [place] [address] ProviderDelvin MD [address] [place] [address] Social History Tobacco Use Types Packs/Day Years [...] on filedocumented in this encounter Care Teams Music Publisher Relationship Specialty Start Date End Date Reji Castro MD [address] [place] [address] PCP - General Adolescent Medicine 10/02/22 documented as of this encounter
--- OUTSIDE RECORDS SUMMARY | 2025-05-17 10:35 | XMS_ITS | Encounter Summary ---
Author Organization [employer] Address [address] [facility] [place] [address] Care Team Providers Care Delivery Consultant Name Role Phone Reji Castro MD Primary Care Provider [phone] Encounter Details Date Type Department Care Team (Late st Contact Info) Description 08/11/2021 Transcribed Document [facility] [place] [address] [place] [address] ProviderDelvin MD [address] [place] [address] Social History Tobacco Use Types Packs/Day Years [...] : 3 - Urgent Tracking Group : [facility] ED MICHAEL NAM RN - 08/11/2021 [...] Congestive heart failure ; Created By: CASIMIRO MIHCELE RN; Reaction Status: Active ; Category: Drug [...] 08/11/2021 16:25:12 EDT) Problems(Active) Amblyopia (SNOMED CT :9048891207 ) Name of Problem: Amblyopia ; Recorder: Whitney Razo RN; Confirmation: Confirmed ; Classification: Patient Stated ; Code: 9819876558 ; Contributor System: PowerChart ; Last Updated: 05/03/2014 19:25 EDT ; Life Cycle Date: 12/02/2013 ; Life Cycle Status: Active ; Vocabulary: SNOMED CT ; Comments: 12/02/2013 0:50 - Whitney Razo RN lazy eye blindness (left eye) Arthritis (SNOMED CT :8990346 ) Name of Problem: Arthritis ; Recorder: Whitney Razo RN; Confirmation: Confirmed ; Classification: Patient Stated ; Code: 6972509 ; Contributor System: PowerChart ; Last Updated: 05/03/2014 19:25 EDT ; Life Cycle Date: 12/02/2013 ; Life Cycle Status: Active ; Vocabulary: SNOMED CT Atrial fibrillation (SNOMED CT :22573969 ) Name of Problem: Atrial fibrillation ; Recorder: Whitney Razo RN; Confirmation: Confirmed ; Classification: Patient Stated ; Code: 54088255 ; Contributor System: PowerChart ; Last Updated: 05/03/2014 19:25 EDT ; Life Cycle Date: 12/02/2013 ; Life Cycle Status: Active ; Vocabulary: SNOMED CT Back pain (PNED :[id number] ) Name of Problem: Back pain ; Recorder: Whitney Razo RN; Confirmation: Confirmed ; Classification: Patient Stated ; Code: [id number] ; Contributor System: PowerChart ; Last Updated: 05/07/2014 9:11 EDT ; Life Cycle Date: 12/02/2013 ; Life Cycle Status: Active ; Vocabulary: PNED Bowel obstruction (SNOMED CT :730130510 ) Name of Problem: Bowel obstruction ; Recorder: Whitney Razo RN; Confirmation: Confirmed ; Classification: Patient Stated ; Code: 503084865 ; Contributor System: PowerChart ; Last Updated: 05/03/2014 19:25 EDT ; Life Cycle Date: 12/02/2013 ; Life Cycle Status: Active ; Vocabulary: SNOMED CT Bronchitis (SNOMED CT :40362152 ) Name of Problem: Bronchitis ; Recorder: Whitney Razo RN; Confirmation: Confirmed ; Classification: Patient Stated ; Code: 88102627 ; Contributor System: PowerChart ; Last Updated: 05/03/2014 19:25 EDT ; Life Cycle Date: 12/02/2013 ; Life Cycle Status: Active ; Vocabulary: SNOMED CT Cardiac arrhythmia (SNOMED CT :6372136004 ) Name of Problem: Cardiac arrhythmia ; Recorder: Whitney Razo RN; Confirmation: Confirmed ; Classification: Patient Stated ; Code: 1841365172 ; Contributor System: PowerChart ; Last Updated: 05/03/2014 19:25 EDT ; Life Cycle Date: 12/02/2013 ; Life Cycle Status: Active ; Vocabulary: SNOMED CT Cardiomyopathy (SNOMED CT :619667706 ) Name of Problem: Cardiomyopathy ; Recorder: Whitney Razo RN; Confirmation: Confirmed ; Classification: Patient Stated ; Code: 324420655 ; Contributor System: PowerChart ; Last Updated: 05/03/2014 19:25 EDT ; Life Cycle Date: 12/02/2013 ; Life Cycle Status: Active ; Vocabulary: SNOMED CT COPD (SNOMED CT :60046347 ) Name of Problem: COPD ; Recorder: Whitney Razo RN; Confirmation: Confirmed ; Classification: Patient Stated ; Code: 04836211 ; Contributor System: PowerChart ; Last Updated: 05/07/2014 9:10 EDT ; Life Cycle Date: 12/02/2013 ; Life Cycle Status: Active ; Vocabulary: SNOMED CT Diabetes mellitus (SNOMED CT :774049056 ) Name of Problem: Diabetes mellitus ; Recorder: Whitney Razo RN; Confirmation: Confirmed ; Classification: Patient Stated ; Code: 366545516 ; Contributor System: PowerChart ; Last Updated: 05/03/2014 19:25 EDT ; Life Cycle Date: 12/02/2013 ; Life Cycle Status: Active ; Vocabulary: SNOMED CT Diabetes mellitus type II (SNOMED CT :72163670 ) Name of Problem: Diabetes mellitus type II ; Recorder: Whitney Razo RN; Confirmation: Confirmed ; Classification: Patient Stated ; Code: 26511878 ; Contributor System: PowerChart ; Last Updated: 05/07/2014 9:12 EDT ; Life Cycle Date: 12/02/2013 ; Life Cycle Status: Active ; Vocabulary: SNOMED CT Diverticulosis (SNOMED CT :2958585862 ) Name of Problem: Diverticulosis ; Recorder: Whitney Razo RN; Confirmation: Confirmed ; Classification: Patient Stated ; Code: 3693884489 ; Contributor System: PowerChart ; Last Updated: 05/03/2014 19:25 EDT ; Life Cycle Date: 12/02/2013 ; Life Cycle Status: Active ; Vocabulary: SNOMED CT Edema (SNOMED CT :720502766 ) Name of Problem: Edema ; Recorder: Whitney Razo RN; Confirmation: Confirmed ; Classification: Patient Stated ; Code: 224866350 ; Contributor System: PowerChart ; Last Updated: 05/03/2014 19:25 EDT ; Life Cycle Date: 12/02/2013 ; Life Cycle Status: Active ; Vocabulary: SNOMED CT ; Comments: 12/02/2013 1:45 - Whitney Razo RN BLE Fibromyalgia (SNOMED CT :14716269 ) Name of Problem: Fibromyalgia ; Recorder: Whitney Razo RN; Confirmation: Confirmed ; Classification: Patient Stated ; Code: 68972771 ; Contributor System: PowerChart ; Last Updated: [...] GERD - Gastro-esophageal reflux disease (SNOMED CT :9110971477 ) Name of Problem: GERD - Gastro-esophageal reflux disease ; Recorder: Whitney Razo RN; Confirmation: Confirmed ; Classification: Patient Stated ; Code: 5223237530 ; Contributor System: PowerChart ; Last Updated: 05/07/2014 9:09 EDT ; Life Cycle Date: 12/02/2013 ; Life Cycle Status: Active ; Vocabulary: SNOMED CT Heart failure (SNOMED CT :974914335 ) Name of Problem: Heart failure ; Recorder: Whitney Razo RN; Confirmation: Confirmed ; Classification: Patient Stated ; Code: 975754835 ; Contributor System: PowerChart ; Last Updated: 05/03/2014 19:25 EDT ; Life Cycle Date: 12/02/2013 ; Life Cycle Status: Active ; Vocabulary: SNOMED CT Heart valve (SNOMED CT :238116538 ) Name of Problem: Heart valve ; Recorder: Whitney Razo RN; Confirmation: Confirmed ; Classification: Patient Stated ; Code: 531645763 ; Contributor System: PowerChart ; Last Updated: 05/07/2014 9:14 EDT ; Life Cycle Date: 12/02/2013 ; Life Cycle Status: Active ; Vocabulary: SNOMED CT Hepatomegaly (SNOMED CT :813527160 ) Name of Problem: Hepatomegaly ; Recorder: Whitney Razo RN; Confirmation: Confirmed ; Classification: Patient Stated ; Code: 961968492 ; Contributor System: PowerChart ; Last Updated: 05/03/2014 19:25 EDT ; Life Cycle Date: 12/02/2013 ; Life Cycle Status: Active ; Vocabulary: SNOMED CT High blood pressure (SNOMED CT :87594414 ) Name of Problem: High blood pressure ; Recorder: Whitney Razo RN; Confirmation: Confirmed ; Classification: Patient Stated ; Code: 26356719 ; Contributor System: PowerChart ; Last Updated: 05/03/2014 19:25 EDT ; Life Cycle Date: 12/02/2013 ; Life Cycle Status: Active ; Vocabulary: SNOMED CT Hyperlipidemia (SNOMED CT :33153980 ) Name of Problem: Hyperlipidemia ; Recorder: Whitney Razo RN; Confirmation: Confirmed ; Classification: Patient Stated ; Code: 43403521 ; Contributor System: PowerChart ; Last Updated: 05/03/2014 19:25 EDT ; Life Cycle Date: 12/02/2013 ; Life Cycle Status: Active ; Vocabulary: SNOMED CT Lazy eye (SNOMED CT :713113510 ) Name of Problem: Lazy eye ; Recorder: Whitney Razo RN; Confirmation: Confirmed ; Classification: Patient Stated ; Code: 964289004 ; Contributor System: PowerChart ; Last Updated: 05/03/2014 19:25 EDT ; Life Cycle Date: 12/02/2013 ; Life Cycle Status: Active ; Vocabulary: SNOMED CT ; Comments: 12/02/2013 0:49 - Whitney Razo RN lazy eye blindness (left eye) Myocardial infarction (SNOMED CT :56578925 ) Name of Problem: Myocardial infarction ; Recorder: Whitney Razo RN; Confirmation: Confirmed ; Classification: Patient Stated ; Code: 60464202 ; Contributor System: PowerChart ; Last Updated: [...] Cycle Status: Active Ovarian cyst (SNOMED CT :488942262 ) Name of Problem: Ovarian cyst ; Recorder: Whitney Razo RN; Confirmation: Confirmed ; Classification: Patient Stated ; Code: 858086617 ; Contributor System: PowerChart ; Last Updated: 05/03/2014 19:25 EDT ; Life Cycle Date: 12/02/2013 ; Life Cycle Status: Active ; Vocabulary: SNOMED CT Renal calculus (SNOMED CT :542753726 ) Name of Problem: Renal calculus ; Recorder: Whitney Razo RN; Confirmation: Confirmed ; Classification: Patient Stated ; Code: 729584300 ; Contributor System: PowerChart ; Last Updated: 05/03/2014 19:25 EDT ; Life Cycle Date: 12/02/2013 ; Life Cycle Status: Active ; Vocabulary: SNOMED CT Restless legs syndrome (SNOMED CT :40337101 ) Name of Problem: Restless legs syndrome ; Recorder: Whitney Razo RN; Confirmation: Confirmed ; Classification: Patient Stated ; Code: 22616660 ; Contributor System: PowerChart ; Last Updated: 05/03/2014 19:25 EDT ; Life Cycle Date: 12/02/2013 ; Life Cycle Status: Active ; Vocabulary: SNOMED CT Thyroid disease (SNOMED CT :498108208 ) Name of Problem: Thyroid disease ; Recorder: Whitney Razo RN; Confirmation: Confirmed ; Classification: Patient Stated ; Code: 023554315 ; Contributor System: PowerChart ; Last Updated: 05/03/2014 19:25 EDT ; Life Cycle Date: 12/02/2013 ; Life Cycle Status: Active ; Vocabulary: SNOMED CT Diagnoses(Active) Medical screening exam Date: 08/11/2021 ; Diagnosis Type: Reason For Visit ; Confirmation: Complaint of ; Clinical Dx: Medical screening exam ; Classification: Medical ; Clinical Service: Emergency medicine ; Code: PNED ; Probability: 0 ; Diagnosis Code: [id number] ED Height and Weight Height Source : Stated Height Entry Format : [place] Height, Feet : 5 ft(Converted to: 152 cm, 60 Inch) Height, Inches : 4 Inch(Converted to: 0 ft 4 Inch, 10.16 cm) Clinical Height : 162.56 cm Weight Source, ED : Critical estimated dosing weight Weight Entry Format : [place] Weight, Pounds : 190 lb Clinical Dosing Weight : 86.36 kg Body Surface Area (BSA) : 1.92 m2 Body Mass Index : 32.7 kg/m2 (HI) [place] Body Weight (IBW) : 54.3 kg MICHAEL NAM RN - 08/11/2021 16:19 EDT Electronically signed by Lanny [facility] Conversion Reel Tender Cerner at 03/09/2023 8:56 PM CDT documented in this encounter Plan of Treatment Not on file documented as of this encounter Visit Diagnoses Not on filedocumented in this encounter Care Teams Delivery Consultant Relationship Specialty Start Date End Date Reji Castro MD [address] [place] [id number] PCP - General Adolescent Medicine 10/02/22 documented as of this encounter
--- OUTSIDE RECORDS SUMMARY | 2025-05-17 10:35 | XMS_ITS | Encounter Summary ---
Author Organization [employer] Address [address] [place] [address] Care Team Providers Care Automated Teller Manager Name Role Phone Reji Castro MD Primary Care Provider [phone] Encounter Details Date Type Department Care Team (Late st Contact Info) Description 08/15/2021 Transcribed Document [facility] [place] [facility] [place] [address] ProviderDelvin MD [address] [place] [address] Social History Tobacco Use Types Packs/Day Years [...] Hold home meds SSI #Depression Celexa #Pain [place] 10 mg every 6 hours as needed [...] levothyroxine, 25 mcg= 1 Tab, Oral, Daily [place] 10 mg-325 mg oral tablet, 1 Tab, [...] # 0.58 x10(3)/uL (Low) 08/14/2021 16:02 EDT [place] % 7.1 % 08/15/2021 03:42 EDT [place] % 7.9 % 08/14/2021 16:02 EDT [place] # 0.50 K/uL 08/15/2021 03:42 EDT [place] # 0.53 K/uL 08/14/2021 16:02 EDT Eos [...] (Low) 08/14/2021 16:02 EDT Electronically signed by [facility], [facility] Conversion Water Softener Installer Cerner at 03/09/2023 8:47 PM CDT documented in this encounter Plan of Treatment Not on file documented as of this encounter Visit Diagnoses Not on filedocumented in this encounter Care Teams Automated Teller Manager Relationship Specialty Start Date End Date Reji Castro MD [address] [place] [address] PCP - General Adolescent Medicine 10/02/22 documented as of this encounter
--- OUTSIDE RECORDS SUMMARY | 2025-05-17 10:35 | XMS_ITS | Encounter Summary ---
Author Organization [employer] Address [address] [place] [address] Care Team Providers Care Disk Operator Name Role Phone Reji Castro MD Primary Care Provider [phone] Encounter Details Date Type Department Care Team (Late st Contact Info) Description 08/20/2021 Transcribed Document [facility] Family Medicine [address] [place] [address] ProviderDelvin MD [address] [place] [address] Social History Tobacco Use Types Packs/Day Years [...] on filedocumented in this encounter Care Teams Disk Operator Relationship Specialty Start Date End Date Reji Castro MD [address] [place] [address] PCP - General Adolescent Medicine 10/02/22 documented as of this encounter
--- OUTSIDE RECORDS SUMMARY | 2025-05-17 10:35 | XMS_ITS | Encounter Summary ---
Author Organization [employer] Address [address] [facility] [place] [address] Care Team Providers Care Military Pay Technician Name Role Phone Reji Castro MD Primary Care Provider [phone] Encounter Details Date Type Department Care Team (Late st Contact Info) Description 08/14/2021 Transcribed Document [facility] [place] [facility] [place] [address] ProviderDelvin MD [address] [place] [address] Social History Tobacco Use Types Packs/Day Years [...] # 0.71 x10(3)/uL (Low) 08/13/2021 23:47 EDT [place] % 10.6 % (High) 08/13/2021 23:47 EDT [place] # 0.58 K/uL 08/13/2021 23:47 EDT Eos [...] (Low) 08/13/2021 18:40 EDT Electronically signed by [facility], [facility] Conversion Roll Sheeting Cutter Cerner at 03/09/2023 8:59 PM CDT documented in this encounter Plan of Treatment Not on file documented as of this encounter Visit Diagnoses Not on filedocumented in this encounter Care Teams Military Pay Technician Relationship Specialty Start Date End Date Reji Castro MD [address] [place] [address] PCP - General Adolescent Medicine 10/02/22 documented as of this encounter
--- OUTSIDE RECORDS SUMMARY | 2025-05-17 10:35 | XMS_ITS | Encounter Summary ---
Author Organization [employer] Address [address] [place] [address] Care Team Providers Care Charging Board Operator Name Role Phone Reji Castro MD Primary Care Provider + [phone] Encounter Details Date Type Department Care Team (Late st Contact Info) Description 08/15/2021 Transcribed Document [facility] [place] Medicine [facility] [place] [address] ProviderDelvin MD [address] [place] [address] Social History Tobacco Use Types Packs/Day Years [...] mL - 700 mg, IV Piggyback, Inj, [id number], infuse over 30 Minute(s), Routine Cardiovascular metoprolol [...] PRN for Pain (Severe 7-10), Routine acetaminophen-hydrocodone ([place] 10 mg-325 mg oral tablet) - 1 [...] 06:00) SBP 102 (AUG 15 09:37) 91 ([facility] 06:[place]) 108 ([facility] 17:21) DBP 61 (AUG 15 09:37) L 54 (AUG 15 06:00) 76 ([facility] 17:21) MAP 81 (AUG 15 09:37) 68 ([facility] 03:00) 86 ([facility] 17:21) SpO2 94 (AUG 15 06:00) L 91 ([facility] 22:00) 97 ([facility] 03:00) General: No acute distress. Eye: Extraocular [...] on filedocumented in this encounter Care Teams Charging Board Operator Relationship Specialty Start Date End Date Reji Castro MD [address] [place] [address] PCP - General Adolescent Medicine 10/02/22 documented as of this encounter
--- OUTSIDE RECORDS SUMMARY | 2025-05-17 10:35 | XMS_ITS | Encounter Summary ---
Author Organization [employer] Address [address] [place] [address] Care Team Providers Care Toe Closing Machine Tender Name Role Phone Reji Castro MD Primary Care Provider [phone] Encounter Details Date Type Department Care Team (Late st Contact Info) Description 08/11/2021 Transcribed Document [facility] [place] [facility] [place] [address] ProviderDelvin MD [address] [place] [id number] Social History Tobacco Use Types Packs/Day Years [...] pin. Replacement, mitral valve, with cardiopulmonary bypass (40339). sternotomy. hernia repair, abdominal. sigmoid colon resection. Tendon sheath incision (eg, for trigger finger) (68143). jaw surgery, left. great toe surger, left. [...] % LOW Lymph # 0.76 K/uL LOW [place] % 8.9 % [place] # 0.61 K/uL Eos % 4.4 % Eos # 0.30 Baso % 0.4 % Baso # 0.03 Slide Review No PT 18.9 Second(s) HI INR 1.8 HI PTT 39.6 Second(s) HI Urine Type U CleanCatch Urine Color Yellow Urine Appearance Clear Urine Specific [place] 1.007 Urine pH Dipstick 6.5 Urine Leukocyte Esterase Negative Urine Nitrite Negative Urine Protein Dipstick Negative Urine Glucose Dipstick Negative Urine Ketones Dipstick Negative Urine Urobilinogen Dipstick 0.2 EU/dL Urine Bilirubin Dipstick Negative Urine Blood Dipstick Negative Ur WBC None Seen /HPF Ur Squamous Epithelial Cells 0-2 /HPF . Radiology results: Radiology Results (Last 48 hours) [id number] -- 08/11/2021 16:16 CR Chest 1 Vw [...] filedocumented in this encounter Care Teams Toe Closing Machine Tender Relationship Specialty Start Date End Date Reji Castro MD [address] [place] [id number] PCP - General Adolescent Medicine 10/02/22 documented as of this encounter
--- OUTSIDE RECORDS SUMMARY | 2025-05-17 10:35 | XMS_ITS | Encounter Summary ---
Author Organization [employer] Address [address] [place] [address] Care Team Providers Care Field Inspector Name Role Phone Reji Castro MD Primary Care Provider [phone] Encounter Details Date Type Department Care Team (Late st Contact Info) Description 08/20/2021 Transcribed Document [facility] [place] [facility] [place] [address] ProviderDelvin MD [address] [place] [address] Social History Tobacco Use Types Packs/Day Years [...] 13:33 EDT by MADINA LOVETT, JEREMIAH - Radiation Control TechnicianContract Graphic Designer Progress Note Discharge Arrangements : Patient Post-Acute [...] Rounds? : Yes MADINA LOVETT RN - Radiation Control Technician - 08/20/2021 13:33 EDT Narrative Progress Note Narrative Progress Note : RRS Low Boost 5 Day 07/30 Patient was admitted for staph infection and port removal. She had a new port placed on 08/19. Patient needs to remain inpatient until her coumadin is at a therapeutic level per at [facility]. Patient will need IV rocephin until 09/08. Patient will need home health and says she has used [facility] in the past. CM will [...] level per at [facility]. Waiting on culture results for final abx plan. May need IV abx at home via port. Patient will need home health and lvies in [place]. [facility] home [facility] is a possibility. MADINA LOVETT RN - Radiation Control Technician - 08/19/21 15:40:22 RRS Low Boost [...] will need home health and lives in [place]. [facility] home [facility] is a possibility. CM will continue to follow. DCP: MADINA LOVETT RN - Radiation Control Technician - 08/18/21 15:47:49 (late entry from [...] and send referrals as appropriate. JULIO STEWART, RN-Radiation Control Technician ED - 08/18/21 10:38:39 MADINA LOVETT, JEREMIAH - Radiation Control Technician - 08/20/2021 13:33 EDT Electronically signed by [facility], [facility] Conversion Pick Up Driver Cerner at 03/09/2023 8:49 PM CDT documented in this encounter Plan of Treatment Not on file documented as of this encounter Visit Diagnoses Not on filedocumented in this encounter Care Teams Field Inspector Relationship Specialty Start Date End Date Reji Castro MD [address] [place] [id number] PCP - General Adolescent Medicine 10/02/22 documented as of this encounter
--- OUTSIDE RECORDS SUMMARY | 2025-05-17 10:35 | XMS_ITS | Encounter Summary ---
Author Organization [employer] Address [address] [place] [address] Care Team Providers Care Button Decorating Machine Operator Name Role Phone Reji Castro MD Primary Care Provider [phone] Encounter Details Date Type Department Care Team (Late st Contact Info) Description 08/20/2021 Transcribed Document [facility] [address] [place] [address] Loren Solorzano MD [address] [place] [address] [address] [place] [id number] Social History Tobacco Use Types Packs/Day Years [...] cefTRIAXone: 2 Gram, 100 mL/Hr, IV Piggyback, [id number] diphenhydrAMINE: 25 mg, Oral, Q6H, PRN: Itching [...] Oral, BID cefTRIAXone 2 Gram, IV Piggyback, [id number] citalopram 20 mg tab 40 mg 2 [...] Bioprosthetic mitral valve replacement / SNOMED CT 055081615 / Confirmed Chronic kidney disease / SNOMED CT 2781508544 / Confirmed COPD - Chronic obstructive pulmonary disease / SNOMED CT 726717700 / Confirmed History of obstructive sleep apnea / IMO 68893795 / Confirmed HLD - Hyperlipidemia / SNOMED CT 337982712 / Confirmed HTN - Hypertension / SNOMED CT 9318156888 / Confirmed Canceled: Atrial fibrillation / SNOMED CT 57123691, Active Problems (25) AIHA (autoimmune hemolytic anemia) [...] 25.9 \ Radiology Results (Last 48 hours) [id number] -- 08/11/2021 21:21 CR Fluoro in OR (08/19/2021 08:15) Result: FLUOROSCOPY IN THE ORHISTORY: Staph infection.FINDINGS: Fluoroscopy was provided by the radiology department [id number] placement. 1 spot film was submittedFLUOROSCOPY TIME: [...] Medications: cefTRIAXone 2 Gram, IV Piggyback, Inj, [id number], infuse over 30 Minute(s), Routine, Start 08/20/21 [...] Hold home meds SSI #Depression Celexa #Pain [place] 10 mg every 6 hours as needed Dispo: Given patient with history of multiple transfusion we will keep patient in the hospital on heparin drip and Coumadin till INR therapeutic need IV abx, at least until 09/08. Discussed with upper caser. Time spent 25 minutes documented in this encounter Plan of Treatment Not on file documented as of this encounter Visit Diagnoses Not on filedocumented in this encounter Care Teams Button Decorating Machine Operator Relationship Specialty Start Date End Date Reji Castro MD [address] [place] [address] PCP - General Adolescent Medicine 10/02/22 documented as of this encounter
--- OUTSIDE RECORDS SUMMARY | 2025-05-17 10:35 | XMS_ITS | Encounter Summary ---
Author Organization [employer] Address [address] [place] [address] Care Team Providers Care Mixed Livestock Farm Worker Name Role Phone Reji Castro MD Primary Care Provider [phone] Encounter Details Date Type Department Care Team (Late st Contact Info) Description 08/15/2021 Transcribed Document [facility] [place] Family Medicine [address] [place] [address] ProviderDelvin MD [facility] [place] [address] Social History Tobacco Use Types Packs/Day Years [...] on filedocumented in this encounter Care Teams Mixed Livestock Farm Worker Relationship Specialty Start Date End Date Reji Castro MD [address] [place] [id number] PCP - General Adolescent Medicine 10/02/22 documented as of this encounter
--- OUTSIDE RECORDS SUMMARY | 2025-05-17 10:35 | XMS_ITS | Encounter Summary ---
Author Organization [employer] Address [address] [place] [address] Care Team Providers Care Salt Cutter Name Role Phone Reji Castro MD Primary Care Provider [phone] Encounter Details Date Type Department Care Team (Late st Contact Info) Description 08/11/2021 Transcribed Document [facility] [place] Family Medicine [address] [place] [address] ProviderDelvin MD [address] [place] [address] Social History Tobacco Use Types Packs/Day Years [...] 9:33 EDT Electronically signed by Lanny [facility] Conversion Histologic Technician Cerner at 03/09/2023 8:39 PM CDT documented in this encounter Plan of Treatment Not on file documented as of this encounter Visit Diagnoses Not on filedocumented in this encounter Care Teams Salt Cutter Relationship Specialty Start Date End Date Reji Castro MD [address] [place] [address] PCP - General Adolescent Medicine 10/02/22 documented as of this encounter
--- OUTSIDE RECORDS SUMMARY | 2025-05-17 10:35 | XMS_ITS | Encounter Summary ---
Author Organization [employer] Address [address] [place] [address] Care Team Providers Care Manager Hris Name Role Phone Reji Castro MD Primary Care Provider [phone] Encounter Details Date Type Department Care Team (Late st Contact Info) Description 08/15/2021 Transcribed Document [facility] [place] [facility] [place] [address] ProviderDelvin MD [address] [place] [address] Social History Tobacco Use Types Packs/Day Years [...] 08/15/2021 18:10 EDT Electronically signed by Lanny [facility] Conversion Corporate Risk Analyst Cerner at 03/09/2023 8:38 PM CDT documented in this encounter Plan of Treatment Not on file documented as of this encounter Visit Diagnoses Not on filedocumented in this encounter Care Teams Manager Hris Relationship Specialty Start Date End Date Reji Castro MD [address] [place] [address] PCP - General Adolescent Medicine 10/02/22 documented as of this encounter
--- OUTSIDE RECORDS SUMMARY | 2025-05-17 10:35 | XMS_ITS | Encounter Summary ---
Author Organization [employer] Address [address] [place] [address] Care Team Providers Care Manager French Name Role Phone Reji Castro MD Primary Care Provider [phone] Encounter Details Date Type Department Care Team (Late st Contact Info) Description 08/20/[address] [facility] [place] Family Medicine [facility] [place] [address] ProviderDelvin MD [facility] [place] [address] Social History Tobacco Use Types Packs/Day Years [...] Warfarin HPI: 56 y/o F presenting to [facility] with history of COPD, [...] cefTRIAXone: 2 Gram, 100 mL/Hr, IV Piggyback, [id number]. citalopram: 40 mg, Oral, Daily. diphenhydrAMINE: 50 [...] questions. Thank you, Andrea Moraes, PharmD PGY1 Hand Wrapper Operator Pager: [phone], Ext. [phone] documented in this encounter Plan of Treatment Not on file documented as of this encounter Visit Diagnoses Not on filedocumented in this encounter Care Teams Manager French Relationship Specialty Start Date End Date Reji Castro MD [address] [place] [address] PCP - General Adolescent Medicine 10/02/22 documented as of this encounter
--- OUTSIDE RECORDS SUMMARY | 2025-05-17 10:35 | XMS_ITS | Encounter Summary ---
Author Organization [employer] Address [address] [place] [address] Care Team Providers Care Costume Design Teacher Name Role Phone Reji Castro MD Primary Care Provider + [phone] Encounter Details Date Type Department Care Team (Late st Contact Info) Description 08/15/2021 Transcribed Document [facility] [place] [facility] [place] [address] ProviderDelvin MD [facility] [place] [address] Social History Tobacco Use Types Packs/Day Years [...] her port could not be accessed. Her instrument engineer aspirated fluid from the port that was evidently purulent. I have not yet been able to track down that culture. After the aspiration she developed fever to 103, severe CHEUNG, myalgias and arthralgias. She was admitted to [facility]. She was in the hospital for [...] she presented to a [facility] after she developed severe CHEUNG and myalgias w/o prominent fever. She was subsequently contacted and told to report to [facility] because she had + blood cutures concerning for an infected portacath +/- PVE. 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 Review of Systems ROS reviewed as documented in chart Health Status Current medications: (Selected) Inpatient Medications Ordered ALPRAZolam: 0.5 mg, Oral, TID, PRN: Anxiety CeleXA: 40 mg, Oral, Daily Coumadin: 6 mg, Oral, Daily Coumadin: 7.5 mg, Oral, Daily DAPTOmycin + Sodium Chloride 0.9% intravenous solution 50 mL: 700 mg, 14 mL, 128 mL/Hr, IV Piggyback, [id number] Dextrose 50% injection: 12.5 Gram, IV Push, Q15Min, PRN: Other (See Comment) Dextrose 50% injection: 25 Gram, IV Push, Q15Min, PRN: Other (See Comment) Dextrose 50% injection: 25 Gram, IV Push, Q15Min, PRN: Other (See Comment) Dextrose 50% injection: 25 Gram, IV Push, Q15Min, PRN: Other (See Comment) Lactated Ringers Injection intravenous solution 1,000 mL: 20 mL/Hr, IntraVENous [place] 10 mg-325 mg oral tablet: 1 Tab, [...] tenderness, No swelling, No deformity. Integumentary: Warm, [place]. Neurologic: Alert, Oriented, No focal deficits. Psychiatric: [...] of paula cath Electronically signed by Lanny [facility] Conversion Hspt Tutor Cerner at 03/09/2023 8:49 PM CDT documented in this encounter Plan of Treatment Not on file documented as of this encounter Visit Diagnoses Not on filedocumented in this encounter Care Teams Costume Design Teacher Relationship Specialty Start Date End Date Reji Castro MD [address] [place] [id number] PCP - General Adolescent Medicine 10/02/22 documented as of this encounter
--- OUTSIDE RECORDS SUMMARY | 2025-05-17 10:35 | XMS_ITS | Encounter Summary ---
Author Organization [employer] Address [address] [place] [address] Care Team Providers Care Electroencephalographic Technologist Name Role Phone Reji Castro MD Primary Care Provider + [phone] Encounter Details Date Type Department Care Team (Late st Contact Info) Description 08/11/2021 Transcribed Document [facility] [place] [facility] [place] [address] ProviderDelvin MD [address] [place] [address] Social History Tobacco Use Types Packs/Day Years [...] 180 units of blood due to anemia, [facility]. Primary Care Provider DEREK ROBISON DR History of Present Illness 56-year-old female with a history of COPD, atrial fibrillation, CKD unknown stage, type 2 diabetes, chronic anemia that has needed blood transfusions in the past, CAD, mitral valve replacement presents to [facility] emergency department in [place] after being told by outside provider that [...] fibrillation 5. Diabetes mellitus type II 6. prison current use of anticoagulant At risk for [...] # 0.76 K/uL (Low) 08/11/2021 17:59 EDT [place] % 8.9 % 08/11/2021 17:59 EDT [place] # 0.61 K/uL 08/11/2021 17:59 EDT Eos [...] Appearance CLEAR2 08/11/2021 17:59 EDT Urine Specific [place] 1.007 08/11/2021 17:59 EDT Urine pH Dipstick [...] 08/11/21 20:26:00 EDT, Full Code, Continuous Order documented in this encounter Plan of Treatment Not on file documented as of this encounter Visit Diagnoses Not on filedocumented in this encounter Care Teams Electroencephalographic Technologist Relationship Specialty Start Date End Date Reji Castro MD [address] [place] [address] PCP - General Adolescent Medicine 10/02/22 documented as of this encounter
--- OUTSIDE RECORDS SUMMARY | 2025-05-17 10:35 | XMS_ITS | Encounter Summary ---
Author Organization [employer] Address [address] [place] [address] Care Team Providers Care Hat Finishing Materials Preparer Name Role Phone Reji Castro MD Primary Care Provider + [phone] Encounter Details Date Type Department Care Team (Late st Contact Info) Description 08/11/2021 Transcribed Document [facility] [place] [address] [place] [address] ProviderDelvin MD [address] [place] [address] Social History Tobacco Use Types Packs/Day Years [...] : Low risk (0) [place] Interventions : [place] precautions for safety used MARIPOSA JACQUES RN - 08/11/2021 18:46 EDT Electronically signed by Lanny [facility] Conversion Corrections Lieutenant Cerner at 03/09/2023 8:46 PM CDT documented in this encounter Plan of Treatment Not on file documented as of this encounter Visit Diagnoses Not on filedocumented in this encounter Care Teams Hat Finishing Materials Preparer Relationship Specialty Start Date End Date Reji Castro MD [address] [place] [address] PCP - General Adolescent Medicine 10/02/22 documented as of this encounter
--- OUTSIDE RECORDS SUMMARY | 2025-05-17 10:35 | XMS_ITS | Encounter Summary ---
Author Organization [employer] Address [address] [place] [address] Care Team Providers Care Fusion Juncture Grinder Name Role Phone Reji Castro MD Primary Care Provider [phone] Encounter Details Date Type Department Care Team (Late st Contact Info) Description 08/15/2021 Transcribed Document [facility] [place] [facility] [place] [address] ProviderDelvin MD [address] [place] [address] Social History Tobacco Use Types Packs/Day Years [...] Female : 1965 Associated Diagnoses: None Author: Andera Moraes, Resident Pharmacist Pharmacy Consult - Warfarin HPI: 56 y/o F presenting to [facility] with history of COPD, atrial fibrillation, [...] mg, 14 mL, 128 mL/Hr, IV Piggyback, [id number]. docusate-senna: 1 Tab, Oral, BID. famotidine: 20 [...] questions. Thank you, Andrea Moraes, PharmD PGY1 Director Of Corporate Strategy Pager: [phone] Ext. [phone] documented in this encounter Plan of Treatment Not on file documented as of this encounter Visit Diagnoses Not on filedocumented in this encounter Care Teams Fusion Juncture Grinder Relationship Specialty Start Date End Date Reji Castro MD [address] [place] [address] PCP - General Adolescent Medicine 10/02/22 documented as of this encounter
--- OUTSIDE RECORDS SUMMARY | 2025-05-17 10:35 | XMS_ITS | Encounter Summary ---
Author Organization [employer] Address [address] [place] [address] Care Team Providers Care Support Team Assoc Name Role Phone Reji Castro MD Primary Care Provider + [phone] Encounter Details Date Type Department Care Team (Late st Contact Info) Description 08/11/2021 Transcribed Document [facility] [place] Medicine [address] [place], [place] [id number] ProviderDelvin MD [address] [place] [address] Social History Tobacco Use Types Packs/Day Years [...] Unaccompanied Legal Guardian : No Support Person/Patient Rheologist : Yes Support Person/Pt Rep Name : [...] 180 units of blood due to anemia, [facility] is why she has a port. Information Obtained From : Patient Primary Language : [place] Communication Barrier : None Fabric Normalizer Needed : No Cherri Webb RN - [...] Scale Risk Level : 0-24 Low Risk [place] Fall Interventions : Adequate lighting, Assistive devices [...] Source : Stated Height Entry Format : [place] Height, Feet : 5 ft(Converted to: 152 cm, 60 Inch) Height, Inches : 4 Inch(Converted to: 0 ft 4 Inch, 10.16 cm) Clinical Height : 162.56 cm Weight Source : Standing scale Weight Entry Format : [place] Clinical Dosing Weight : 86.39 kg Weight, Pounds : 190 lb Weight, Ounces : 1 oz Body Surface Area (BSA) : 1.92 m2 Body Mass Index : 32.7 kg/m2 (HI) [place] Body Weight : 54 kg Cherri Webb [...] Cherri Webb RN - 08/11/2021 23:11 EDT [place] Suicide Severity Rating Scale (C-SSRS) CSSRS Past [...] Items : Cell phone, Other: Cell Phone Veterinary Physiologist Personal Items Disposition : Bedside Cherri Webb RN - 08/11/2021 23:11 EDT documented in this encounter Plan of Treatment Not on file documented as of this encounter Visit Diagnoses Not on filedocumented in this encounter Care Teams Support Team Assoc Relationship Specialty Start Date End Date Reji Castro MD [address] [place] [address] PCP - General Adolescent Medicine 10/02/22 documented as of this encounter
--- OUTSIDE RECORDS SUMMARY | 2025-05-17 10:35 | XMS_ITS | Encounter Summary ---
Author Organization [employer] Address [address] [place] [address] Care Team Providers Care Appointment Coordinator Name Role Phone Reji Castro MD Primary Care Provider [phone] Encounter Details Date Type Department Care Team (Late st Contact Info) Description 08/20/2021 Transcribed Document [facility] [place] [address] [place] [address] ProviderDelvin MD [address] [place] [address] Social History Tobacco Use Types Packs/Day Years [...] On: 08/20/2021 5:00 EDT by Eula Tinoco Cash Manager-Health Unit Coord Height and Weight, Routine Routine Weight Source : Standing scale Routine Weight Entry Format : [place] Routine Weight, Pounds : 204 lb Routine Weight, Ounces : 7 oz Routine Weight Calculation : 92.93 kg Height Source : Stated Height Entry Format : [place] Height, Feet : 5 ft Height, Inches : 4 Inch Clinical Height : 162.56 cm Body Surface Area (BSA), Routine : 1.98 m2 Body Mass Index (BMI), Routine : 35.17 kg/m2 Eula Tinoco Cash Manager-Health Unit Coord - 08/20/2021 6:41 EDT Electronically signed by Lanny, [facility] Conversion Boiler Tenders Supervisor Cerner at 03/09/2023 8:44 PM CDT documented in this encounter Plan of Treatment Not on file documented as of this encounter Visit Diagnoses Not on filedocumented in this encounter Care Teams Appointment Coordinator Relationship Specialty Start Date End Date Reji Castro MD [address] [place] [address] PCP - General Adolescent Medicine 10/02/22 documented as of this encounter
--- OUTSIDE RECORDS SUMMARY | 2025-05-17 10:36 | XMS_ITS | Encounter Summary ---
Author Organization [employer] Address [address] [place] [address] Care Team Providers Care Systems Checkout Mechanic Name Role Phone Reji Castro MD Primary Care Provider [phone] Encounter Details Date Type Department Care Team (Late st Contact Info) Description 08/12/2021 Transcribed Document [facility] [place] [address] [place], [place] [id number] ProviderDelvin MD [address] [place] [address] Social History Tobacco Use Types Packs/Day Years [...] On: 08/12/2021 8:46 EDT by TAWNYA AVILES, FIXTURE FABRICATOR REPAIRER Bronchodilator Assessment Score, RT Pulmonary History, Bronchodilator [...] on filedocumented in this encounter Care Teams Systems Checkout Mechanic Relationship Specialty Start Date End Date Reji Castro MD [address] [place] [address] PCP - General Adolescent Medicine 10/02/22 documented as of this encounter
--- OUTSIDE RECORDS SUMMARY | 2025-05-17 10:36 | XMS_ITS | Encounter Summary ---
Author Organization [employer] Address [address] [place] [address] Care Team Providers Care Blue Prints Trimmer Name Role Phone Reji Castro MD Primary Care Provider + [phone] Encounter Details Date Type Department Care Team (Late st Contact Info) Description 08/19/2021 Transcribed Document [facility] [place] [facility] [place] [address] ProviderDelvin MD [address] [place] [address] Social History Tobacco Use Types Packs/Day [...] EDT Performed On: 08/19/2021 5:00 EDT by aKyy Garcia, RN Chart Check Powerplans Initiated/Discontinued as Appropriate : Not applicable All Active Orders Reviewed : Yes Kayy Garcia RN - 08/19/2021 7:52 EDT documented in this encounter Plan of Treatment Not on file documented as of this encounter Visit Diagnoses Not on filedocumented in this encounter Care Teams Blue Prints Trimmer Relationship Specialty Start Date End Date Reji Castro MD [address] [place] [address] PCP - General Adolescent Medicine 10/02/22 documented as of this encounter
--- OUTSIDE RECORDS SUMMARY | 2025-05-17 10:36 | XMS_ITS | Encounter Summary ---
Author Organization [employer] Address [address] [place] [address] Care Team Providers Care Supervisor Mold Construction Name Role Phone Reji Castro MD Primary Care Provider [phone] Encounter Details Date Type Department Care Team (Late st Contact Info) Description 08/21/2021 Transcribed Document [facility] [place] Family Medicine [address] [place] [address] ProviderDelvin MD [address] [place] [address] Social History Tobacco Use Types Packs/Day Years [...] 08/21/2021 18:33 EDT Electronically signed by Lanny [facility] Conversion Carbider Cerner at 03/09/2023 8:36 PM CDT documented in this encounter Plan of Treatment Not on file documented as of this encounter Visit Diagnoses Not on filedocumented in this encounter Care Teams Supervisor Mold Construction Relationship Specialty Start Date End Date Reji Castro MD [address] [place] [address] PCP - General Adolescent Medicine 10/02/22 documented as of this encounter
--- OUTSIDE RECORDS SUMMARY | 2025-05-17 10:36 | XMS_ITS | Encounter Summary ---
Author Organization [employer] Address [address] [place] [address] Care Team Providers Care Custom Bookbinder Name Role Phone Reji Castro MD Primary Care Provider [phone] Encounter Details Date Type Department Care Team (Late st Contact Info) Description 08/11/2021 Transcribed Document [facility] Family Medicine [address] [place] [address] ProviderDelvin MD [address] [place] [address] Social History Tobacco Use Types Packs/Day Years Used Date Smoking Tobacco: Never Assessed Comments Unknown Sex and Gender Information Value Date Recorded Sex Assigned at Not on file Legal Sex Female 4:32 PM CDT Gender Identity Not on file Sexual Orientation Not on file documented as of this encounter Miscellaneous Notes * Cerner Conversion Note - Delvin ProviderMD - 08/11/2021 4:16 PM CDT [place] Suicide Severity Rating Scale (C-SSRS) Entered On: 08/11/2021 18:49 EDT Performed On: 08/11/2021 18:46 EDT by MARIPOSA JACQUES RN [place] Suicide Severity Rating Scale (C-SSRS) CSSRS Past [...] filedocumented in this encounter Care Teams Custom Bookbinder Relationship Specialty Start Date End Date Reji Castro MD [address] [place] [address] PCP - General Adolescent Medicine 10/02/22 documented as of this encounter
--- OUTSIDE RECORDS SUMMARY | 2025-05-17 10:36 | XMS_ITS | Encounter Summary ---
Author Organization [employer] Address [address] [place] [address] Care Team Providers Care Courtesy Car Driver Name Role Phone Reji Castro MD Primary Care Provider [phone] Encounter Details Date Type Department Care Team (Late st Contact Info) Description 08/16/2021 Transcribed Document [facility] Radiology [address] [place] [address] Loren Solorzano MD [address] [place] [address] [address] [id number] Social History Tobacco Use Types Packs/Day Years [...] mg, 14 mL, 128 mL/Hr, IV Piggyback, O39VRgn Dextrose 50% injection: 12.5 Gram, IV Push, [...] mL 700 mg 14 mL, IV Piggyback, S10AHob famotidine 20 mg tab 20 mg 1 [...] Bioprosthetic mitral valve replacement / SNOMED CT 350281642 / Confirmed Chronic kidney disease / SNOMED CT 8522079566 / Confirmed COPD - Chronic obstructive pulmonary disease / SNOMED CT 757162839 / Confirmed History of obstructive sleep apnea / IMO 36400604 / Confirmed HLD - Hyperlipidemia / SNOMED CT 433118327 / Confirmed HTN - Hypertension / SNOMED CT 6657311699 / Confirmed Canceled: Atrial fibrillation / SNOMED CT 42590411, Active Problems (25) AIHA (autoimmune hemolytic anemia) [...] hrs) Last Charted Minimum Maximum Temp 98 ([facility] 10:50) 97.6 ([facility] 06[place]) 98 ([facility] 18:00) Apical HR 76 ([facility] 20:32) 76 ([facility] 20:32) 76 ([facility] 20:32) Mon HR 81 ([facility] 10:50) 67 ([facility] 14:52) 85 ([facility] 18:00[place] Resp Rate 18 ([facility] 10:50) 14 ([facility] 23:00) 19 ([facility] 18:00) SBP 112 ([facility] 10:50) 95 ([facility] 14:52) 114 ([facility] 23:00) DBP 60 ([facility] 10[facility]50) L 45 ([facility] 14:52) 63 ([facility] 18:00) MAP 74 ([facility] 10:50) 63 ([facility] 23:00) 83 ([facility] 18:00) SpO2 97 ([facility] 10:50) L 92 ([facility] 14:52) 99 ([facility] 03:39) General: Alert and oriented, No [...] EDT BIN HERNANDEZ, DO-INT Discontinued Medications: acetaminophen-hydrocodone ([place] 10 mg-325 mg oral tablet) 1 Tab, [...] Hold home meds SSI #Depression Celexa #Pain [place] 10 mg every 6 hours as needed [...] on filedocumented in this encounter Care Teams Courtesy Car Driver Relationship Specialty Start Date End Date Reji Castro MD [address] [place] [address] PCP - General Adolescent Medicine 10/02/22 documented as of this encounter
--- OUTSIDE RECORDS SUMMARY | 2025-05-17 10:36 | XMS_ITS | Encounter Summary ---
Author Organization [employer] Address [address] [place] [address] Care Team Providers Care Senior Sql Developer Name Role Phone Reji Castro MD Primary Care Provider [phone] Encounter Details Date Type Department Care Team (Late st Contact Info) Description 08/25/2021 Transcribed Document [facility] [place] Family Medicine [address] [place] [address] ProviderDelvin MD [address] [place] [address] Social History Tobacco Use Types Packs/Day Years [...] On: 08/25/2021 10:48 EDT by Porfirio Caban, Detective Sergeant Cert Lead Meds to Bed Enrollment Patient Enrollment Decision: : No/do not enroll in meds to bed program Reason for Declining Meds to Bed Program: : Prefer to use home pharmacy Porfirio Caban Detective Sergeant Cert Lead - 08/26/2021 11:11 EDT documented in this encounter Plan of Treatment Not on file documented as of this encounter Visit Diagnoses Not on filedocumented in this encounter Care Teams Senior Sql Developer Relationship Specialty Start Date End Date Reji Castro MD [address] [place] [id number] PCP - General Adolescent Medicine 10/02/22 documented as of this encounter
--- OUTSIDE RECORDS SUMMARY | 2025-05-17 10:36 | XMS_ITS | Encounter Summary ---
Author Organization [employer] Address [address] [place] [address] Care Team Providers Care Floor And Wall Applier Liquid Name Role Phone Reji Castro MD Primary Care Provider [phone] Encounter Details Date Type Department Care Team (Late st Contact Info) Description 08/25/2021 Transcribed Document [facility] [place] Family Medicine [address] [place] [address] ProviderDelvin MD [address] [place] [address] Social History Tobacco Use Types Packs/Day Years [...] Patient stated she has chest pain, called PHYSICIAN ASSISTANT SURGERY Team, called md. Vitals signs stable. Put zoll on patient. Stat ekg ordered, cxr and troponin. Patient transferred to [facility]. WILLIAMS HANEY RN - 08/25/2021 11:02 EDT documented in this encounter Plan of Treatment Not on file documented as of this encounter Visit Diagnoses Not on filedocumented in this encounter Care Teams Floor And Wall Applier Liquid Relationship Specialty Start Date End Date Reji Castro MD [address] [place] [address] PCP - General Adolescent Medicine 10/02/22 documented as of this encounter
--- OUTSIDE RECORDS SUMMARY | 2025-05-17 10:36 | XMS_ITS | Encounter Summary ---
Author Organization [employer] Address [address] [place] [address] Care Team Providers Care Physician Vice President Name Role Phone Reji Castro MD Primary Care Provider + [phone] Encounter Details Date Type Department Care Team (Late st Contact Info) Description 08/19/2021 Transcribed Document [facility] [place] [facility] [place] [address] ProviderDelvin MD [address] [place] [address] Social History Tobacco Use Types Packs/Day Years [...] Phlebosclerosis. PROCEDURE PERFORMED: Right IJ PowerPort placement. FLASH DESIGNER: Cherri Ya. ANESTHESIA: Local MAC. FINDINGS: An 8-Persian single lumen PowerPort was placed using a [...] and J-wire followed by passage of the 8-Persian single-lumen catheter. Once again, fluoroscopy was used [...] taken to the Recovery in stable condition. /[id number] MD DOTTIE Pollard/TONYA / DOTTIE / KENDRA /[id number] Electronically signed by Lanny [facility] Conversion Roving Winder Cerner at 03/09/2023 8:44 PM CDT documented in this encounter Plan of Treatment Not on file documented as of this encounter Visit Diagnoses Not on filedocumented in this encounter Care Teams Physician Vice President Relationship Specialty Start Date End Date Reji Castro MD [address] [place] [address] PCP - General Adolescent Medicine 10/02/22 documented as of this encounter
--- OUTSIDE RECORDS SUMMARY | 2025-05-17 10:36 | XMS_ITS | Encounter Summary ---
Author Organization [employer] Address [address] [place] [address] Care Team Providers Care Candy Attendant Name Role Phone Reji Castro MD Primary Care Provider [phone] Encounter Details Date Type Department Care Team (Late st Contact Info) Description 08/16/2021 Transcribed Document [facility] [place] [facility] [place] [address] ProviderDelvin MD [address] [place] [address] Social History Tobacco Use Types Packs/Day Years [...] mL - 700 mg, IV Piggyback, Inj, M34JOqm, infuse over 30 Minute(s), Routine Cardiovascular metoprolol [...] hrs) Last Charted Minimum Maximum Temp 98 ([facility] 10:50) 97.6 ([facility] 06:00) 98 ([facility] 18:00) Apical HR 76 ([facility] 20:32) 76 ([facility] 20:32) 76 ([facility] 20:32) Mon HR 81 (AUG 16 10:50) 67 ([facility] 14:52) 85 ([facility] 18:00) Resp Rate 18 (AUG 16 10:50) 14 (AUG 15 23:00) 19 ([facility] 18:00) SBP 112 (AUG 16 10:50) 95 ([facility] 14:52) 114 ([facility] 23:00) DBP 60 (AUG 16 10:50) L 45 ([facility] 14:52) 63 ([facility] 18:00) MAP 74 (AUG 16 10:50) 63 ([facility] 23:00) 83 ([facility] 18:00) SpO2 97 ([facility] 10:50) L 92 ([facility] 14:52) 99 (AUG 16 03:39) General: No [...] on filedocumented in this encounter Care Teams Candy Attendant Relationship Specialty Start Date End Date Reji Castro MD [address] [place] [address] PCP - General Adolescent Medicine 10/02/22 documented as of this encounter
--- OUTSIDE RECORDS SUMMARY | 2025-05-17 10:36 | XMS_ITS | Encounter Summary ---
Author Organization [employer] Address [address] [place] [address] Care Team Providers Care Calendering Supervisor Name Role Phone Reji Castro MD Primary Care Provider [phone] Encounter Details Date Type Department Care Team (Late st Contact Info) Description 08/21/[address] [facility] [place] [facility] [place] [address] ProviderDelvin MD [facility] [place] [address] Social History Tobacco Use Types Packs/Day Years Used Date Smoking Tobacco: Never Assessed Comments Unknown Sex and Gender Information Value Date Recorded Sex Assigned at Not on file Legal Sex Female 4:32 PM CDT Gender Identity Not on file Sexual Orientation Not on file documented as of this encounter Miscellaneous Notes * Cerner Conversion Note - Delvin ProviderMD - 08/21/2021 2:00 AM CDT Superintendent Maintenance Air[employer] Details Entered On: 08/21/2021 6:32 EDT Performed [...] on filedocumented in this encounter Care Teams Calendering Supervisor Relationship Specialty Start Date End Date Reji Castro MD [address] [place] [address] PCP - General Adolescent Medicine 10/02/22 documented as of this encounter
--- OUTSIDE RECORDS SUMMARY | 2025-05-17 10:36 | XMS_ITS | Encounter Summary ---
Author Organization [employer] Address [address] [facility] [place] [address] Care Team Providers Care Autocad Name Role Phone Reji Castro MD Primary Care Provider + [phone] Encounter Details Date Type Department Care Team (Late st Contact Info) Description 08/14/2021 Transcribed Document [facility] [place] [address] ProviderDelvin MD [address] [place] [address] Social History Tobacco Use Types Packs/Day Years [...] back to her room in stable condition. /[id number] MD DOTTIE Pollard/TONYA / DOTTIE / KENDRA /[id number] Electronically signed by Lanny, [facility] Conversion [employer]ner at 03/09/2023 8:43 PM CDT documented in this encounter Plan of Treatment Not on file documented as of this encounter Visit Diagnoses Not on filedocumented in this encounter Care Teams Autocad Relationship Specialty Start Date End Date Reji Castro MD [address] [place] [address] PCP - General Adolescent Medicine 10/02/22 documented as of this encounter
--- OUTSIDE RECORDS SUMMARY | 2025-05-17 10:36 | XMS_ITS | Encounter Summary ---
Author Organization [employer] Address [address] [place] [address] Care Team Providers Care Radio Artist Name Role Phone Reji Castro MD Primary Care Provider [phone] Encounter Details Date Type Department Care Team (Late st Contact Info) Description 08/21/2021 Transcribed Document [facility] [place] [address] [place] [address] ProviderDelvin MD [address] [place] [address] Social History Tobacco Use Types Packs/Day Years [...] filedocumented in this encounter Care Teams Radio Artist Relationship Specialty Start Date End Date Reji Castro MD [address] [place] [address] PCP - General Adolescent Medicine 10/02/22 documented as of this encounter
--- OUTSIDE RECORDS SUMMARY | 2025-05-17 10:36 | XMS_ITS | Encounter Summary ---
Author Organization [employer] Address [address] [place] [address] Care Team Providers Care Electrician Second Name Role Phone Reji Castro MD Primary Care Provider + [phone] Encounter Details Date Type Department Care Team (Late st Contact Info) Description 08/12/2021 Transcribed Document [facility] [place] Family Medicine [address] [place] [address] ProviderDelvin MD [address] [place] [address] Social History Tobacco Use Types Packs/Day Years [...] Author: CHELI BEASLEY MD-CAR Basic Information Primary Industrial Technology Teacher: Dr. Delmar Geronimo Strip Deburrer: MD Nestor Chief Complaint Rule out endocarditis/h.o [...] She followed up that week with her Interventional Tech, Dr. Thapa, who aspirated purulence from the port. 10-15 min later, she was driving home and developed fever 103, chills, headache and body aches. Presented to [facility] where she was admitted for IV ABX [...] She presented for evaluation at [facility]. In the ER she was [...] Instructions Problem list: All Problems Amblyopia / 7174427193 / Confirmed Arthritis / 7705546 / Confirmed Atrial fibrillation / 29020996 / Confirmed AIHA (autoimmune hemolytic anemia) / 3792307709 / Confirmed Back pain / [id number] / Confirmed Bowel obstruction / 039078139 / Confirmed Bronchitis / 12800141 / Confirmed Cardiac arrhythmia / 4905009157 / Confirmed Cardiomyopathy / 810858822 / Confirmed COPD / 33294115 / Confirmed Diabetes mellitus / 044346659 / Confirmed Diabetes mellitus type II / 77557273 / Confirmed Diverticulosis / 4501775187 / Confirmed Edema / 725979988 / Confirmed Fibromyalgia / 05970876 / Confirmed frequent headache / Confirmed GERD - Gastro-esophageal reflux disease / 9138400961 / Confirmed Heart failure / 519601314 / Confirmed Heart valve / 093550787 / Confirmed Hepatomegaly / 106093789 / Confirmed High blood pressure / 14796558 / Confirmed History of obstructive sleep apnea / 80080576 / Confirmed Hyperlipidemia / 42470782 / Confirmed Anemia, iron deficiency / 493899398 / Confirmed Lazy eye / 806498556 / Confirmed Myocardial infarction / 11710467 / Confirmed neuropathy hands and feet / Confirmed Ovarian cyst / 051014308 / Confirmed Renal calculus / 487654881 / Confirmed Restless legs syndrome / 80163638 / Confirmed Thyroid disease / 001793156 / Confirmed Histories No education data available. Social & Psychosocial Habits Tobacco 12/18/2013 Tobacco Use Within Last Twelve Months No Smoking Status Former smoker Years of Tobacco Use 30 Month Tobacco Last Used quit 2005 Past Medical History: Active Atrial fibrillation (82989660) Bioprosthetic mitral valve replacement (845634375) Chronic kidney disease (9406635709) COPD - Chronic obstructive pulmonary disease (237360220) HLD - Hyperlipidemia (516634795) HTN - Hypertension (2121199804) Family History: Reviewed. Non-contributory. Procedure history: Replacement, mitral valve, with cardiopulmonary bypass (54730) on 01/19/2006 at 40 Years. left jaw pin. sternotomy. hernia repair, abdominal. sigmoid colon resection. Tendon sheath incision (eg, for trigger finger) (30305). jaw surgery, left. great toe surger, left. [...] of motion, Normal strength. Integumentary: Warm, Dry, [place]. Neurologic: Alert, Oriented. Psychiatric: Cooperative, Appropriate mood & affect. Review / Management AUG 12 00:22 L 134 L 98 H 69 / H 134 3.6 29 H 2.40 \ AUG 12 00:22 \ L 8.7 / 6.7 201 / L 28.3 \ Cardiac Markers (Current Encounter/Past 24 Hours) ProBNP 766 pg/mL AL 08/12/2021 01:12 Blood Gases (Current Encounter/Past 24 Hours) No Blood Gas Results Found (Past 24 Hours) Radiology Results (Last 48 hours) [id number] -- 08/11/2021 21:21 CR Chest 1 Vw [...] admission for coagulase negative staph bacteremia Admitted [facility] 07/12, Negative CHUCHO, TTE for vegetation [...] mechanical causes of hemolysis. Obtain records from [facility]. Check haptoglobin, LDH, reticulocyte count. Continue other current CV meds. documented in this encounter Plan of Treatment Not on file documented as of this encounter Visit Diagnoses Not on filedocumented in this encounter Care Teams Electrician Second Relationship Specialty Start Date End Date Reji Castro MD [address] [place] [address] PCP - General Adolescent Medicine 10/02/22 documented as of this encounter
--- OUTSIDE RECORDS SUMMARY | 2025-05-17 10:36 | XMS_ITS | Encounter Summary ---
Author Organization [employer] Address [address] [place] [address] Care Team Providers Care Well Shooter Name Role Phone Reji Castro MD Primary Care Provider [phone] Encounter Details Date Type Department Care Team (Late st Contact Info) Description 08/19/2021 Transcribed Document [facility] [place] Family Medicine [facility] [place] [address] ProviderDelvin MD [facility] [place] [address] Social History Tobacco Use Types Packs/Day Years [...] # 0.34 x10(3)/uL (Low) 08/19/2021 11:06 EDT Tyler % 7.3 % 08/19/2021 11:06 EDT [place] # 0.79 K/uL 08/19/2021 11:06 EDT Eos [...] (High) 08/18/2021 18:32 EDT Electronically signed by [facility], [facility] Conversion Lead Front End Developer Cerner at 03/09/2023 8:42 PM CDT documented in this encounter Plan of Treatment Not on file documented as of this encounter Visit Diagnoses Not on filedocumented in this encounter Care Teams Well Shooter Relationship Specialty Start Date End Date Reji Castro MD [address] [place] [address] PCP - General Adolescent Medicine 10/02/22 documented as of this encounter
--- OUTSIDE RECORDS SUMMARY | 2025-05-17 10:36 | XMS_ITS | Encounter Summary ---
Author Organization [employer] Address [address] [place] [address] Care Team Providers Care Clinical Rehabilitation Liaison Name Role Phone Reji Castro MD Primary Care Provider [phone] Encounter Details Date Type Department Care Team (Late st Contact Info) Description 08/21/[address] [facility] Radiology [address] [place] [address] Loren Solorzano MD [address] [place] [address] [address] [id number] Social History Tobacco Use Types Packs/Day Years [...] cefTRIAXone: 2 Gram, 100 mL/Hr, IV Piggyback, [id number] diphenhydrAMINE: 25 mg, Oral, Q6H, PRN: Itching [...] Oral, BID cefTRIAXone 2 Gram, IV Piggyback, [id number] citalopram 20 mg tab 40 mg 2 [...] Bioprosthetic mitral valve replacement / SNOMED CT 562402465 / Confirmed Chronic kidney disease / SNOMED CT 7197210785 / Confirmed COPD - Chronic obstructive pulmonary disease / SNOMED CT 591235788 / Confirmed History of obstructive sleep apnea / IMO 70907336 / Confirmed HLD - Hyperlipidemia / SNOMED CT 117419563 / Confirmed HTN - Hypertension / SNOMED CT 2396487358 / Confirmed Canceled: Atrial fibrillation / SNOMED CT 52289570, Active Problems (25) AIHA (autoimmune hemolytic anemia) [...] 21 06:00) 97.6 (AUG 21 06:00) 98 ([facility] [place] 11:00) Apical HR 70 (AUG 20 20:27) 70 (AUG 20 20:27) 70 (AUG 20 20:27) Mon HR 61 (AUG 21 06:00) 61 (AUG 21 06:00) 89 ([facility] [place] 11:00) Resp Rate 15 (AUG 21 06:00) 15 (AUG 21 06:00) 18 (AUG 20 11:00) SBP 101 (AUG 21 06:00) 95 (AUG 20 23:30) 127 ([facility] [place] 11:00) DBP 68 (AUG 21 06:00) L 50 (AUG 20 15:00) 80 ([facility] [place] 11:00) MAP 78 (AUG 21 06:00) 63 [...] Hold home meds SSI #Depression Celexa #Pain [place] 10 mg every 6 hours as needed Dispo: Given patient with history of multiple transfusion we will keep patient in the hospital on heparin drip and Coumadin till INR therapeutic need IV abx, at least until 09/08. Discussed with case checker. and pharmcy Time spent 25 minutes documented in this encounter Plan of Treatment Not on file documented as of this encounter Visit Diagnoses Not on filedocumented in this encounter Care Teams Clinical Rehabilitation Liaison Relationship Specialty Start Date End Date Reji Castro MD [address] [place] [address] PCP - General Adolescent Medicine 10/02/22 documented as of this encounter
--- OUTSIDE RECORDS SUMMARY | 2025-05-17 10:36 | XMS_ITS | Encounter Summary ---
Author Organization [employer] Address [address] [place] [address] Care Team Providers Care Open Hearth Melter Name Role Phone Reji Castro MD Primary Care Provider [phone] Encounter Details Date Type Department Care Team (Late st Contact Info) Description 08/14/2021 Transcribed Document [facility] [place] [address] [place] [address] ProviderDelvin MD [address] [place] [address] Social History Tobacco Use Types Packs/Day Years [...] on filedocumented in this encounter Care Teams Open Hearth Melter Relationship Specialty Start Date End Date Reji Castro MD [address] [place] [address] PCP - General Adolescent Medicine 10/02/22 documented as of this encounter
--- OUTSIDE RECORDS SUMMARY | 2025-05-17 10:36 | XMS_ITS | Encounter Summary ---
Author Organization [employer] Address [address] [place] [address] Care Team Providers Care Beam Sealer Name Role Phone Reji Castro MD Primary Care Provider [phone] Encounter Details Date Type Department Care Team (Late st Contact Info) Description 08/14/2021 Transcribed Document [facility] [place] [facility] [place] [address] ProviderDelvin MD [facility] [place] [address] Social History Tobacco Use Types Packs/Day Years [...] # 0.71 x10(3)/uL (Low) 08/13/2021 23:47 EDT [place] % 10.6 % (High) 08/13/2021 23:47 EDT [place] # 0.58 K/uL 08/13/2021 23:47 EDT Eos [...] (Low) 08/13/2021 18:40 EDT Electronically signed by [facility] Conversion Iron Piler Cerner at 03/09/2023 8:31 PM CDT documented in this encounter Plan of Treatment Not on file documented as of this encounter Visit Diagnoses Not on filedocumented in this encounter Care Teams Beam Sealer Relationship Specialty Start Date End Date Reji Castro MD [address] [place] [address] PCP - General Adolescent Medicine 10/02/22 documented as of this encounter
--- OUTSIDE RECORDS SUMMARY | 2025-05-17 10:36 | XMS_ITS | Encounter Summary ---
Author Organization [employer] Address [address] [place] [address] Care Team Providers Care Audio Visual Coordinator Name Role Phone Reji Castro MD Primary Care Provider [phone] Encounter Details Date Type Department Care Team (Late st Contact Info) Description 08/21/2021 Transcribed Document [facility] [place] Family Medicine [facility] [place] [address] ProviderDelvin MD [address] [place] [address] Social History Tobacco Use Types Packs/Day Years [...] cefTRIAXone: 2 Gram, 100 mL/Hr, IV Piggyback, [id number] diphenhydrAMINE: 25 mg, Oral, Q6H, PRN: Itching [...] Oral, BID cefTRIAXone 2 Gram, IV Piggyback, [id number] citalopram 20 mg tab 40 mg 2 [...] History of obstructive sleep apnea / IMO 76501671 / Confirmed Bioprosthetic mitral valve replacement / SNOMED CT 170354090 / Confirmed Chronic kidney disease / SNOMED CT 9193436934 / Confirmed COPD - Chronic obstructive pulmonary disease / SNOMED CT 531058971 / Confirmed HTN - Hypertension / SNOMED CT 8629002726 / Confirmed HLD - Hyperlipidemia / SNOMED CT 366181088 / Confirmed Amblyopia / SNOMED CT 7659206246 / Confirmed 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 / SNOMED CT 449335171 / Confirmed Myocardial infarction / SNOMED CT 40100838 / Confirmed Atrial fibrillation / SNOMED CT 67030883 / Confirmed GERD - Gastro-esophageal reflux disease / SNOMED CT 5528411921 / Confirmed Diverticulosis / SNOMED CT 6322695243 / Confirmed Hepatomegaly / SNOMED CT 848844331 / Confirmed Renal calculus / SNOMED CT 409689099 / Confirmed Ovarian cyst / SNOMED CT 033193025 / Confirmed Arthritis / SNOMED CT 1420994 / Confirmed Back pain / PNED [id number] / Confirmed Fibromyalgia / SNOMED CT 98473424 / Confirmed Restless legs syndrome / SNOMED CT 31650048 / Confirmed Diabetes mellitus type II / SNOMED CT 44803836 / Confirmed Thyroid disease / SNOMED CT 467767463 / Confirmed Edema / SNOMED CT 272504956 / Confirmed BLE neuropathy hands and feet / Confirmed frequent headache / Confirmed AIHA (autoimmune hemolytic anemia) / SNOMED CT 2068080126 / Confirmed Resolved: Bronchitis / SNOMED CT 70906834 Resolved: Bowel obstruction / SNOMED CT 355341044 Canceled: Atrial fibrillation / SNOMED CT 90580205 Canceled: Lazy eye / SNOMED CT 095717257 lazy eye blindness (left eye) Canceled: Heart failure / SNOMED CT 077342618 Canceled: Heart valve / SNOMED CT 627586700 Canceled: High blood pressure / SNOMED CT 35263967 Canceled: Hyperlipidemia / SNOMED CT 95802056 Canceled: Cardiac arrhythmia / SNOMED CT 4939361222 Canceled: COPD / SNOMED CT 02084257 Canceled: Diabetes mellitus / SNOMED CT 894474997 Canceled: Anemia, iron deficiency / SNOMED CT 545016175, Active Problems (25) AIHA (autoimmune hemolytic anemia) [...] EDT Height Source Stated Height Entry Format Towns Height/Length, [place] (ft) 5 ft Height/Length [place] 4 Inch CLINICALHEIGHT 162.56 cm Routine Weight Source Standing scale Routine Weight Entry Format Towns Routine Weight, Pounds 204 lb Routine Weight, [...] in this encounter Care Teams Audio Visual Coordinator Relationship Specialty Start Date End Date Reji Castro MD [address] [place] [address] PCP - General Adolescent Medicine 10/02/22 documented as of this encounter
--- OUTSIDE RECORDS SUMMARY | 2025-05-17 10:36 | XMS_ITS | Encounter Summary ---
Author Organization [employer] Address [address] [place] [address] Care Team Providers Care Senior Chemical Process Engineer Name Role Phone Reji Castro MD Primary Care Provider [phone] Encounter Details Date Type Department Care Team (Late st Contact Info) Description 08/19/2021 Transcribed Document [facility] [place] Family [place] [facility] [place] [address] ProviderDelvin MD [address] [place] [address] Social History Tobacco Use Types Packs/Day Years [...] 15:34 EDT by MADINA LOVETT, JEREMIAH - Public Service RepresentativeUniversity Librarian Progress Note Discharge Arrangements : Patient Post-Acute [...] Rounds? : Yes MADINA LOVETT RN - Public Service Representative - 08/19/2021 15:34 EDT Narrative Progress Note [...] will need home health and lvies in [place]. [facility] is a possibility. Historical [...] will need home health and lives in [place]. [facility] home [facility] is a possibility. CM will continue to follow. DCP: MADINA LOVETT RN - Public Service Representative - 08/18/21 15:47:49 (late entry from 08/15-) [...] and send referrals as appropriate. JULIO STEWART RN-Public Service Representative ED - 08/18/21 10:38:39 BONY, MADINA, RN - Public Service Representative - 08/19/2021 15:34 EDT Electronically signed by Lanny [facility] Conversion Cut Tobacco Bulker Cerner at 03/09/2023 8:49 PM CDT documented in this encounter Plan of Treatment Not on file documented as of this encounter Visit Diagnoses Not on filedocumented in this encounter Care Teams Senior Chemical Process Engineer Relationship Specialty Start Date End Date Reji Castro MD [address] [place] [address] PCP - General Adolescent Medicine 10/02/22 documented as of this encounter
--- OUTSIDE RECORDS SUMMARY | 2025-05-17 10:36 | XMS_ITS | Encounter Summary ---
Author Organization [employer] Address [address] [place] [address] Care Team Providers Care Manager Ed Name Role Phone Reji Castro MD Primary Care Provider [phone] Encounter Details Date Type Department Care Team (Late st Contact Info) Description 08/19/2021 Transcribed Document [facility] [place] Medicine [address] [place] [address] ProviderDelvin MD [address] [place] [address] Social History Tobacco Use Types Packs/Day Years [...] Celestin MD - 08/19/2021 7:51 AM CDT [facility] Main OR IntraOp Summary Primary Physician: NENA PEARSON MD-SUR Finalized Date/Time: 08/20/21 09:11:26 Pt. Name: TAMAYO IRINAGE Solis/Sex: 1965 Female Med Rec #: [id number] Physician: VINCE BELLO MD Financial #: [id number] Pt. Type: I Room/Bed: [facility]/ Admit/Disch: 08/11/21 21:21:00 - Institution: [facility] IntraOp Case Attendance Entry 1 Entry 2 Entry 3 Case Attendee NENA PEARSON MD-ERNESTO FISCHER APRN, BURBERRY, KEITH, MD-ANS SYSTEMS MECHANIC Role Performed Surgeon/Proceduralist, SYSTEMS MECHANIC/Nurse [employer] System Crewmember Anesthesiologist of First Record Time In 08/19/21 [...] YULIA JIM, SCRUB Josh Rivera, ALICIA SOTELO, ELECTRONICS DESIGN ENGINEER/CSA TECH Role Performed Command Center Officer, First Gasket Supervisor, First Scrub, First Time In 08/19/21 07:29:00 08/19/21 07:29:00 08/19/21 07:29:00 Time Out 08/19/21 08:24:00 08/19/21 08:24:00 08/19/21 08:24:00 Procedure Vascular Access Vascular Access Vascular Access Insertion Insertion Insertion Other Attendee Superficial Wound Closed By: Last Modified By: Josh Rivera, Josh Perez, Josh Perez, JEREMIAH 08/19/21 08:35:46 08/19/21 08:35:46 08/19/21 08:35:46 Entry 7 Case Attendee David Greene, Boring Machine Operator Double End Role Performed Mail Clerk Time In 08/19/21 07:55:00 Time Out 08/19/21 08:07:00 Procedure Vascular Access Insertion Other Attendee Superficial Wound Closed By: Last Modified By: Josh Rivera RN 08/19/21 08:35:46 [facility] IntraOp Case Attendance Audit 08/19/21 08:35:46 Sweatband Decorating Machine Operator: JAZLYN Modifier: JAZLYN 1 <+> Time Out [...] <*> Procedure Vascular Access Insertion 08/19/21 08:07:27 Sweatband Decorating Machine Operator: JAZLYN Modifier: PANTANOS 1 <*> Procedure Vascular Access Insertion 2 <*> Procedure Vascular Access Insertion 3 <*> Procedure Vascular Access Insertion 4 <*> Procedure Vascular Access Insertion 5 <*> Procedure Vascular Access Insertion 6 <*> Procedure Vascular Access Insertion 7 <+> Time In 7 <+> Time Out 7 <*> Procedure Vascular Access Insertion 08/19/21 08:04:07 Sweatband Decorating Machine Operator: JAZLYN Modifier: PANTANOS <+> 7 Case Attendee <+> 7 Role Performed <+> 7 Procedure 08/19/21 08:00:27 Sweatband Decorating Machine Operator: JAZLYN Modifier: PANTANOS 1 <*> Procedure Vascular Access Insertion 2 <*> Procedure Vascular Access Insertion 3 <*> Procedure Vascular Access Insertion 4 <+> Time In 4 <*> Procedure Vascular Access Insertion 5 <+> Time In 5 <*> Procedure Vascular Access Insertion 6 <+> Time In 6 <*> Procedure Vascular Access Insertion 08/19/21 07:52:21 Sweatband Decorating Machine Operator: JAZLYN Modifier: PANTANOS <+> 1 Procedure 2 <+> Time In 2 <*> Procedure Vascular Access Insertion 3 <+> Time In 3 <*> Procedure Vascular Access Insertion <+> 4 Case Attendee <+> 4 Role Performed <+> 4 Procedure <+> 5 Case Attendee <+> 5 Role Performed <+> 5 Procedure <+> 6 Case Attendee <+> 6 Role Performed <+> 6 Procedure [facility] IntraOp Case Times Entry 1 Patient In Room Time 08/19/21 07:29:00 Out Room Time 08/19/21 08:24:00 Anesthesia Start Time 08/19/21 07:29:00 Stop Time 08/19/21 08:24:00 Surgery / Procedure Times Start Time 08/19/21 07:51:00 Stop Time 08/19/21 08:17:00 Last Modified By: Josh Rivera RN 08/19/21 08:24:22 [facility] IntraOp Case Times Audit 08/19/21 08:24:22 Sweatband Decorating Machine Operator: JAZLYN Modifier: MAKENNAANOS <+> 1 Out Room Time <+> 1 Stop Time <+> 1 Stop Time 08/19/21 07:51:02 Sweatband Decorating Machine Operator: JAZLYN Modifier: JUDITHS <+> 1 Start Time [facility] IntraOp Cautery Entry 1 ESU Identification Cautery Type Monopolar ESU ID Number [id number] ID Type Hospital Number Cautery Settings Cut Setting 30 Coag Setting 30 ESU Grounding Pad Ground Pad Type Adult Grounding Pad Site Right Buttock Grounding Pad Josh Rivera RN Applied By Grounding Pad Site Intact Skin Condition Before Cautery Grounding Pad Site Intact Skin Condition After Cautery Last Modified By: Josh Rivera RN 08/19/21 07:52:52 [facility] IntraOp Communication Entry 1 Communication To Family/Significant other Communication By Josh Rivera RN Last Modified By: Josh Rivera RN 08/19/21 07:58:45 [facility] IntraOp Counts Verification Entry 1 Procedure Vascular Access Insertion Count Info Count Type Sponge, Sharps, Miscellaneous Counts Verification Baseline/pre-procedure Sequence Count Results Correct, surgeon notified Counts Performed By Count Performed By ALICIA MACIAS SCRUB (Scrub) TECH Count Performed By Josh Rivera RN (RN) Last Modified By: Josh Rivera RN 08/19/21 07:53:18 [facility] IntraOp Counts Final Entry 1 Procedure Vascular Access Insertion Final Count Info Count Type Sponge, Sharps, Miscellaneous Counts Verification Skin Closure/end of Sequence procedure Count Results Correct, surgeon notified Counts Performed By Count Performed By ALICIA MACIAS SCRUB (Scrub) TECH Count Performed By Josh Rivera RN (RN) Last Modified By: Josh Rivera RN 08/19/21 07:53:41 [facility] IntraOp Departure from OR Entry 1 Integumentary Assessment Integumentary WDL Assessment WDL Transfer/Handoff Transfer to Nursing unit Handoff Method Bedside/Face to face, Online nursing summary Post-op Transport Stretcher/Roderick Via Patient Transport ERNESTO SOUSA APRN, Accompanied by SYSTEMS MECHANIC Last Modified By: Josh Rivera RN 08/19/21 08:02:48 [facility] IntraOp Departure from OR Audit 08/19/21 08:02:48 Sweatband Decorating Machine Operator: JAZLYN Modifier: JAZLYN 1 <*> Transfer to Ambulatory unit, Phase II 1 <+> Patient Transport Accompanied by [facility] IntraOp Dressing and Packing Entry 1 Type Dressing Location OPSITE Wound Dressing Item Skin Closure Glue Applied By YULIA JIM SCRUB TECH/OCTAVIO Last Modified By: Josh Rivera RN 08/19/21 07:54:28 [facility] IntraOp Fire Risk Assessment Entry 1 [...] Modified By: Josh Rivera RN 08/19/21 07:53:55 [facility] IntraOp General Case Geographic Information Scientist 1 Case Information OR OR 06 [facility] Case Level 1 Room Verified Yes Wound Class I - Clean Specialty General ASA Class 4 Diagnosis Preop Diagnosis IV Access Postop Same As Preop Yes Postop Diagnosis IV Access Last Modified By: Josh Rivera RN 08/19/21 07:58:27 [facility] IntraOp Intraoperative Assessment Entry 1 Handoff [...] Modified By: Josh Rivera RN 08/19/21 07:59:09 [facility] IntraOp Intraoperative Equipment Entry 1 Type Monitoring Equipment Intraop Monitoring Electrocardiogram Three lead placement (ECG) Electrode Placement Blood Pressure Non-Invasive BP Device Source Blood Pressure Arm, right upper Location Pulse Oximeter Hand, left Probe Site Antiembolic Devices Scopes Photo/Video Documentation Last Modified By: Josh Rivera RN 08/19/21 07:59:29 [facility] IntraOp Medication Admin Entry 1 Entry 2 Medication/Irrigant LIDOCAINE 1% WITH EPI Heplock 100units/ml 5ml 1:100,000 vial - [id number] Combo Med List Time Administered 08/19/21 07:59:00 08/19/21 07:59:00 Route of LOCAL HEP LOCK Administration Dose Dose 30 10 Unit of Measure ml ml Volume Administered By PEARSON, CATALINAMESHA JOHN M, MD-SUR Procedure Irrigation Irrigant Volume In Irrigant Volume Out Last Modified By: Josh Rivera RN Pantano, Scott, RN 08/19/21 08:00:16 08/19/21 08:00:16 [facility] IntraOp Patient Positioning Entry 1 Procedure [...] Modified By: Josh Rivera RN 08/19/21 07:54:11 [facility] IntraOp Sign In Entry 1 Patient, [...] Modified By: Josh Rivera RN 08/19/21 08:00:24 [facility] IntraOp Sign Out Entry 1 RN [...] Modified By: Josh Rivera RN 08/19/21 08:35:34 [facility] IntraOp Sign Out Audit 08/19/21 08:35:34 Sweatband Decorating Machine Operator: JAZLYN Modifier: PANTANOS <+> 1 RN Sign Out Signature <+> 1 RN Sign Out Signature Date/Time <+> 1 Urinary Catheter Documented in IView [facility] IntraOp Skin Prep Entry 1 Procedure Vascular Access Insertion Prescribed N/A Pre-Surgical Prep Completed Prep Area CHIN THRU CHEST INCLUDE BILATERAL SHOULDERS Intraop Prep Prep Agents Chloraprep Hair Removal Last Modified By: Josh Rivera RN 08/19/21 07:58:31 [facility] IntraOp Surgical Procedures Entry 1 Procedure Vascular Access Insertion Additional (PORT A CATH PLACEMENT) Procedure Description Primary Procedure Yes Primary Surgeon NENA PEARSON MD-TATYANA Start 08/19/21 07:51:00 Stop 08/19/21 08:17:00 Anesthesia Type MAC Specialty General Wound Class I - Clean Last Modified By: Josh Rivera RN 08/19/21 08:35:09 [facility] IntraOp Surgical Procedures Audit 08/19/21 08:35:09 Sweatband Decorating Machine Operator: JAZLYN Modifier: JUDITHS <+> 1 Stop [facility] IntraOp Temp Regulation Devices Entry 1 Temp Regulation Temperature Warm blankets Regulation Device Temperature Full body Regulation Site Temperature ERNESTO SOUSA APRN, Regulation Device SYSTEMS MECHANIC Applied by Last Modified By: Josh Rivera RN 08/19/21 07:54:19 [facility] IntraOP Time Out Entry 1 Procedure [...] Modified By: Josh Rivera RN 08/19/21 08:02:27 [facility] IntraOP Time Out Audit 08/19/21 08:02:27 Sweatband Decorating Machine Operator: JAZLYN Modifier: PANTANOS 1 <+> Beta Alessandra Administered 1 <*> Procedure to be Performed Vascular Access Insertion 08/19/21 08:00:58 Sweatband Decorating Machine Operator: JAZLYN Modifier: PANTANOS 1 <+> All activity [...] <+> Team Verbally Confirms Information 08/19/21 08:00:32 Sweatband Decorating Machine Operator: JAZLYN Modifier: PANTANOS <+> 1 Procedure to be Performed [facility] IntraOp X-Ray and Images Entry 1 X-Ray/Imaging Type Fluoroscopy Fluoroscopy Type C-Arm Site CHEST Dry Wall Finisher Name David Greene, Boring Machine Operator Double End Protective Devices Yes Used Last Modified By: Josh Rivera RN 08/19/21 08:04:48 Case Comments <None> Finalized By: WILNER DUPONT Document Signatures Signed By: Josh Rivera RN 08/19/21 08:35 WILNER DUPONT 08/20/21 09:11 Unfinalized History Date/Time Username Reason for Unfinalizing Freetext Reason for Unfinalizing 08/20/21 09:10 PAM Correct Billing Electronically signed by Lanny [facility] Conversion Climatologist Cerner at 03/09/2023 8:49 PM CDT documented in this encounter Plan of Treatment Not on file documented as of this encounter Visit Diagnoses Not on filedocumented in this encounter Care Teams Manager Ed Relationship Specialty Start Date End Date Reji Castro MD [address] [place] [id number] PCP - General Adolescent Medicine 10/02/22 documented as of this encounter
--- OUTSIDE RECORDS SUMMARY | 2025-05-17 10:36 | XMS_ITS | Encounter Summary ---
Author Organization [employer] Address [address] [place] [address] Care Team Providers Care Automotive Fleet Supervisor Name Role Phone Reji Castro MD Primary Care Provider [phone] Encounter Details Date Type Department Care Team (Late st Contact Info) Description 08/11/2021 Transcribed Document [facility] Family Medicine [facility] [place] [address] ProviderDelvin MD [address] [place] [address] Social History Tobacco Use Types Packs/Day Years [...] 08/12/2021 9:31 EDT Electronically signed by Lanny [facility] Conversion Vocational Rehabilitation Technician Cerner at 03/09/2023 9:00 PM CDT documented in this encounter Plan of Treatment Not on file documented as of this encounter Visit Diagnoses Not on filedocumented in this encounter Care Teams Automotive Fleet Supervisor Relationship Specialty Start Date End Date Reji Castro MD [address] [place] [address] PCP - General Adolescent Medicine 10/02/22 documented as of this encounter
--- OUTSIDE RECORDS SUMMARY | 2025-05-17 10:36 | XMS_ITS | Encounter Summary ---
Author Organization [employer] Address [address] [place] [address] Care Team Providers Care High Density Press Laborer Name Role Phone Reji Castro MD Primary Care Provider [phone] Encounter Details Date Type Department Care Team (Late st Contact Info) Description 08/12/2021 Transcribed Document [facility] [place] Family Medicine [address] [place] [address] ProviderDelvin MD [address] [place] [address] Social History Tobacco Use Types Packs/Day Years [...] on filedocumented in this encounter Care Teams High Density Press Laborer Relationship Specialty Start Date End Date Reji Castro MD [address] [place] [address] PCP - General Adolescent Medicine 10/02/22 documented as of this encounter
--- OUTSIDE RECORDS SUMMARY | 2025-05-17 10:36 | XMS_ITS | Encounter Summary ---
Author Organization [employer] In [employer] Address [address] [place] [address] Care Team Providers Care Industrial Training Specialist Name Role Phone Reji Castro MD Primary Care Provider [phone] Encounter Details Date Type Department Care Team (Late st Contact Info) Description 08/25/[address] [facility] [place] Medicine [facility] [place], [place] [id number] ProviderDelvin MD [address] [place] [address] Social History Tobacco Use Types Packs/Day Years [...] 56 y/o F presenting to [facility] with history of COPD, [...] cefTRIAXone: 2 Gram, 100 mL/Hr, IV Piggyback, [id number]. citalopram: 40 mg, Oral, Daily. diphenhydrAMINE: 25 [...] floor. Thank you, Andrea Moraes, PharmD PGY1 Heavy Duty Mechanic Farm Equipment Pager: [phone] Ext. [phone] documented in this encounter Plan of Treatment Not on file documented as of this encounter Visit Diagnoses Not on filedocumented in this encounter Care Teams Industrial Training Specialist Relationship Specialty Start Date End Date Reji Castro MD [address] [place] [id number] PCP - General Adolescent Medicine 10/02/22 documented as of this encounter
--- OUTSIDE RECORDS SUMMARY | 2025-05-17 10:36 | XMS_ITS | Encounter Summary ---
Author Organization [employer] In [employer] Address [address] [place] [address] Care Team Providers Care Hot Repairman Name Role Phone Reji Castro MD Primary Care Provider [phone] Encounter Details Date Type Department Care Team (Late st Contact Info) Description 08/12/2021 Transcribed Document [facility] [place] [facility] [place] [address] ProviderDelvin MD [place] [address] Social History Tobacco Use Types Packs/Day Years [...] her port could not be accessed. Her bull wheel worker aspirated fluid from the port that was evidently purulent. I have not yet been able to track down that culture. After the aspiration she developed fever to 103, severe CHEUNG, myalgias and arthralgias. She was admitted to [facility]. She was in the [...] antibiotics. On 08/08 she presented to a [facility] after she developed severe CHEUNG and myalgias w/o prominent fever. She was subsequently contacted and told to report to [facility] because she had + blood cutures concerning for an infected portacath +/- PVE. I contacted the micro lab at 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 [...] mg, 14 mL, 128 mL/Hr, IV Piggyback, [id number] DAPTOmycin + Sodium Chloride 0.9% intravenous solution 50 mL: 700 mg, 14 mL, 128 mL/Hr, IV Piggyback, [id number] Dextrose 50% injection: 12.5 Gram, IV Push, [...] tenderness, No swelling, No deformity. Integumentary: Warm, [place]. Neurologic: Alert, Oriented, No focal deficits. Psychiatric: [...] -- Await CHUCHO Electronically signed by Lanny [facility] Conversion Sewing Machine Mechanic Cerner at 03/09/2023 9:02 PM CDT documented in this encounter Plan of Treatment Not on file documented as of this encounter Visit Diagnoses Not on filedocumented in this encounter Care Teams Hot Repairman Relationship Specialty Start Date End Date Reji Castro MD [address] [place] [id number] PCP - General Adolescent Medicine 10/02/22 documented as of this encounter
--- OUTSIDE RECORDS SUMMARY | 2025-05-17 10:36 | XMS_ITS | Encounter Summary ---
Author Organization [employer] In [employer] Address [address] [place] [address] Care Team Providers Care Fish Hatchery Worker Name Role Phone Reji Castro MD Primary Care Provider [phone] Encounter Details Date Type Department Care Team (Late st Contact Info) Description 08/15/2021 Transcribed Document [facility] [place] Family Medicine [facility] [place] [address] ProviderDelvin MD [facility] [place], [place] [address] Social History Tobacco Use Types Packs/Day Years Used Date Smoking Tobacco: Never Assessed Comments Unknown Sex and Gender Information Value Date Recorded Sex Assigned at Not on file Legal Sex Female 4:32 PM CDT Gender Identity Not on file Sexual Orientation Not on file documented as of this encounter Miscellaneous Notes * Cerner Conversion Note - Delvin ProviderMD - 08/15/2021 2:00 AM CDT Gauge Checker Details Entered On: 08/15/2021 1:25 EDT Performed [...] filedocumented in this encounter Care Teams Fish Hatchery Worker Relationship Specialty Start Date End Date Reji Castro MD [address] [place] [id number] PCP - General Adolescent Medicine 10/02/22 documented as of this encounter
--- OUTSIDE RECORDS SUMMARY | 2025-05-17 10:36 | XMS_ITS | Encounter Summary ---
Author Organization [employer] In [employer] Address [address] [place] [address] Care Team Providers Care Forest Practices Field Coordinator Name Role Phone Reji Castro MD Primary Care Provider [phone] Encounter Details Date Type Department Care Team (Late st Contact Info) Description 08/12/2021 Transcribed Document [facility] [place] [facility] [place] [address] ProviderDelvin MD [facility] [place] [address] Social History Tobacco Use Types Packs/Day Years Used Date Smoking Tobacco: Never Assessed Comments Unknown Sex and Gender Information Value Date Recorded Sex Assigned at Not on file Legal Sex Female 4:32 PM CDT Gender Identity Not on file Sexual Orientation Not on file documented as of this encounter Miscellaneous Notes * Cerner Conversion Note - Delvin ProviderMD - 08/12/2021 2:00 AM CDT Cash Grain Grower Details Entered On: 08/12/2021 0:22 EDT Performed [...] on filedocumented in this encounter Care Teams Forest Practices Field Coordinator Relationship Specialty Start Date End Date Reji Castro MD [address] [place] [id number] PCP - General Adolescent Medicine 10/02/22 documented as of this encounter
--- OUTSIDE RECORDS SUMMARY | 2025-05-17 10:36 | XMS_ITS | Encounter Summary ---
Author Organization [employer] In [employer] Address [address] [place] [address] Care Team Providers Care Broomcorn Scraper Name Role Phone Reji Castro MD Primary Care Provider [phone] Encounter Details Date Type Department Care Team (Late st Contact Info) Description 08/17/2021 Transcribed Document [facility] [place] [facility] [place] [address] ProviderDelvin MD [facility] [place], [place] [address] Social History Tobacco Use Types Packs/Day Years Used Date Smoking Tobacco: Never Assessed Comments Unknown Sex and Gender Information Value Date Recorded Sex Assigned at Not on file Legal Sex Female 4:32 PM CDT Gender Identity Not on file Sexual Orientation Not on file documented as of this encounter Miscellaneous Notes * Cerner Conversion Note - Delvin ProviderMD - 08/17/2021 2:00 AM CDT Sales Agent Pest Control Service Details Entered On: 08/17/2021 1:07 EDT Performed [...] on filedocumented in this encounter Care Teams Broomcorn Scraper Relationship Specialty Start Date End Date Reji Castro MD [address] [place] [id number] PCP - General Adolescent Medicine 10/02/22 documented as of this encounter
--- OUTSIDE RECORDS SUMMARY | 2025-05-17 10:36 | XMS_ITS | Encounter Summary ---
Author Organization [employer] In [employer] Address [address] [place] [address] Care Team Providers Care Employee Placement Specialist Name Role Phone Reji Saldaña MD Primary Care Provider [phone] Encounter Details Date Type Department Care Team (Late st Contact Info) Description 08/14/2021 Transcribed Document [facility] [place] Medicine [address] [place], [place] [id number] ProviderDelvin MD [facility] [place] [address] Social History Tobacco Use Types Packs/Day Years [...] On: 08/14/2021 16:00 EDT by ALFREDO SEQUEIRA, RN-Head Pastry Chef Initial Assessment I Previously Documented Living Environment [...] Patient's Home Caregiver Medical Durable Power of Heeler Machine Name : No Legal Guardian : No ALFREDO SEQUEIRA RN-Head Pastry Chef - 08/15/2021 8:27 EDT Initial Assessment II Sensory and Motor Deficits : None Current Home Treatments and Equipment : None ALFREDO SEQUEIRA RN-Head Pastry Chef - 08/15/2021 8:27 EDT Discharge Needs I Anticipated Discharge Date : 08/16/2021 EDT Anticipated Discharge To, CM : Home with home health, Home with infusion therapy Current Home Treatment/Equipment : Current Home Treatment/Equipment No qualifying data available. Post Acute/Home Treatments : None Documentation Status Complete : Yes ALFREDO SEQUEIRA RN-Head Pastry Chef - 08/15/2021 8:27 EDT Discharge Needs II Professional Skilled Services : Professional Skilled Services No qualifying data available. Needs Assistance with Transportation : No Discharge Options Discussed with Patient : DME, Home Health, Short term rehabilitation ALFREDO SEQUEIRA RN-Head Pastry Chef - 08/15/2021 8:27 EDT Narrative Note Historical Narrative Note : rrs low boost 5 patient was admitted for staph infection /port removal . consults to neph, surg,ID. CHUCHO negative . patient 56 years old lives alone and is independent. patient face sheet address is wrong now address is : [address] [employer]. patient denied need for dme. possible need for hh she thinks [facility] is the only one in her area. patient states she might need 4 weeks IV abx . patient is agreeable to hh and iv abx at home . cm will follow ALFREDO SEQUEIRA RN-Head Pastry Chef - 08/15/21 08:39:27 Narrative Note : rrs low boost 5 patient was admitted for staph infection /port removal . consults to neph, surg,ID. CHUHCO negative . patient 56 years old lives alone and is independent. patient face sheet address is wrong now address is : [address] [employer]. patient denied need for dme. possible need for hh she thinks [facility] is the only one in her area. patient states she might need 4 weeks IV abx . patient is agreeable to hh and iv abx at home . family will transport . cm will follow HUA, ALFREDO K, RN-Head Pastry Chef - 08/15/2021 8:40 EDT Electronically signed by Lanny [facility] Conversion Pre Sales Systems Engineer Cerner at 03/09/2023 8:51 PM CDT documented in this encounter Plan of Treatment Not on file documented as of this encounter Visit Diagnoses Not on filedocumented in this encounter Care Teams Employee Placement Specialist Relationship Specialty Start Date End Date Reji Saldaña MD [address] [place] [id number] PCP - General Adolescent Medicine 10/02/22 documented as of this encounter
--- OUTSIDE RECORDS SUMMARY | 2025-05-17 10:36 | XMS_ITS | Encounter Summary ---
Author Organization [employer] In [employer] Address [address] [place] [address] Care Team Providers Care News Correspondent Name Role Phone Reji Castro MD Primary Care Provider + [phone] Encounter Details Date Type Department Care Team (Late st Contact Info) Description 08/25/2021 Transcribed Document [facility] [place] Medicine [address] [place], [place] [address] ProviderDelvin MD [address] [place] [address] Social History Tobacco Use Types Packs/Day Years [...] cefTRIAXone: 2 Gram, 100 mL/Hr, IV Piggyback, [id number] diphenhydrAMINE: 25 mg, Oral, Q6H, PRN: Itching [...] Oral, BID cefTRIAXone 2 Gram, IV Piggyback, [id number] citalopram 20 mg tab 40 mg 2 [...] Bioprosthetic mitral valve replacement / SNOMED CT 396994763 / Confirmed Chronic kidney disease / SNOMED CT 7480057290 / Confirmed COPD - Chronic obstructive pulmonary disease / SNOMED CT 551172172 / Confirmed History of obstructive sleep apnea / IMO 40647552 / Confirmed HLD - Hyperlipidemia / SNOMED CT 863727208 / Confirmed HTN - Hypertension / SNOMED CT 9742381841 / Confirmed Canceled: Atrial fibrillation / SNOMED CT 80407572, Active Problems (25) AIHA (autoimmune hemolytic anemia) [...] on filedocumented in this encounter Care Teams News Correspondent Relationship Specialty Start Date End Date Reji Castro MD [address] [place] [address] PCP - General Adolescent Medicine 10/02/22 documented as of this encounter
--- OUTSIDE RECORDS SUMMARY | 2025-05-17 10:36 | XMS_ITS | Encounter Summary ---
Author Organization [employer] In [employer] Address [address] [place] [address] Care Team Providers Care Evaluation Analyst Name Role Phone Reji Castro MD Primary Care Provider [phone] Encounter Details Date Type Department Care Team (Late st Contact Info) Description 08/16/2021 Transcribed Document [facility] [place] Family Medicine [address] [place] [address] ProviderDelvin MD [facility] [place], [place] [address] Social History Tobacco Use Types Packs/Day Years Used Date Smoking Tobacco: Never Assessed Comments Unknown Sex and Gender Information Value Date Recorded Sex Assigned at Not on file Legal Sex Female 4:32 PM CDT Gender Identity Not on file Sexual Orientation Not on file documented as of this encounter Miscellaneous Notes * Cerner Conversion Note - Delvin ProviderMD - 08/16/2021 2:00 AM CDT Cotton Presser Details Entered On: 08/16/2021 2:41 EDT Performed [...] on filedocumented in this encounter Care Teams Evaluation Analyst Relationship Specialty Start Date End Date Reji Castro MD [address] [place] [address] PCP - General Adolescent Medicine 10/02/22 documented as of this encounter
--- OUTSIDE RECORDS SUMMARY | 2025-05-17 10:36 | XMS_ITS | Encounter Summary ---
Author Organization [employer] In [employer] Address [address] [place] [address] Care Team Providers Care Precision Market Insights Name Role Phone Reji Castro MD Primary Care Provider [phone] Encounter Details Date Type Department Care Team (Late st Contact Info) Description 08/19/2021 Transcribed Document [facility] [place] [facility] [place] [address] ProviderDelvin MD [facility] [place] [address] Social History Tobacco Use Types Packs/Day Years Used Date Smoking Tobacco: Never Assessed Comments Unknown Sex and Gender Information Value Date Recorded Sex Assigned at Not on file Legal Sex Female 4:32 PM CDT Gender Identity Not on file Sexual Orientation Not on file documented as of this encounter Miscellaneous Notes * Cerner Conversion Note - Delvin ProviderMD - 08/19/2021 2:00 AM CDT Tmr Teacher Details Entered On: 08/19/2021 3:57 EDT Performed [...] on filedocumented in this encounter Care Teams Precision Market Insights Relationship Specialty Start Date End Date Reji Castro MD [address] [place] [id number] PCP - General Adolescent Medicine 10/02/22 documented as of this encounter
--- OUTSIDE RECORDS SUMMARY | 2025-05-17 10:36 | XMS_ITS | Encounter Summary ---
Author Organization [employer] In [employer] Address [address] [place] [address] Care Team Providers Care Energy Conservation Representative Name Role Phone Reji Castro MD Primary Care Provider [phone] Encounter Details Date Type Department Care Team (Late st Contact Info) Description 08/19/2021 Transcribed Document [facility] [place] Family Medicine [address] [place] [address] ProviderDelvin MD [address] [place] [address] Social History Tobacco Use Types Packs/Day Years [...] filedocumented in this encounter Care Teams Energy Conservation Representative Relationship Specialty Start Date End Date Reji Castro MD [address] [place] [id number] PCP - General Adolescent Medicine 10/02/22 documented as of this encounter
--- OUTSIDE RECORDS SUMMARY | 2025-05-17 10:36 | XMS_ITS | Encounter Summary ---
Author Organization [employer] In [employer] Address [address] [place] [address] Care Team Providers Care Breaker Unit Assembler Name Role Phone Reji Castro MD Primary Care Provider [phone] Encounter Details Date Type Department Care Team (Late st Contact Info) Description 08/12/2021 Transcribed Document [facility] [place] Family Medicine [facility] [place] [address] ProviderDelvin MD [address] [place] [address] Social History Tobacco Use Types Packs/Day Years [...] Vancomycin HPI: 56 y/o F presenting to [facility] with history of COPD, atrial [...] Encounter/Past 24 Hours) Creatinine Level 2.40 mg/dL ND 08/12/2021 01:05 Bun/Creatinine 28.8 ND 08/12/2021 01:05 Est. CrCl: 35 mL/min Intake [...] questions. Thank you, Andrea Moraes, PharmD PGY1 Extractor Puller Pager: [phone] Ext. [phone] Electronically signed by Lanny, [facility] Conversion Baggage Porter Head Cerner at 03/09/2023 8:45 PM CDT documented in this encounter Plan of Treatment Not on file documented as of this encounter Visit Diagnoses Not on filedocumented in this encounter Care Teams Breaker Unit Assembler Relationship Specialty Start Date End Date Reji Castro MD [address] [place] [id number] PCP - General Adolescent Medicine 10/02/22 documented as of this encounter
--- OUTSIDE RECORDS SUMMARY | 2025-05-17 10:36 | XMS_ITS | Encounter Summary ---
Author Organization [employer] In [employer] Address [address] [place] [address] Care Team Providers Care Architecture Department Chair Name Role Phone Reji Castro MD Primary Care Provider [phone] Encounter Details Date Type Department Care Team (Late st Contact Info) Description 08/12/2021 Transcribed Document [facility] [place] [address] [place] [address] ProviderDelvin MD [address] [place] [address] Social History Tobacco Use Types Packs/Day Years [...] Health Plan: [employer] PPO Policy Number: [id number] Authorization Number: Insurance 2 Health Plan: [place] Policy Number: [id number] Authorization Number: Insurance Primary Name : [employer] PPO Policy Number: [id number] Authorization Status-Primary : Awaiting callback Reference Number-Primary : Pend ref #[id number] Authorized Service Begin Date-Primary : 08/11/2021 EDT Authorization Comments-Primary : Pend ref no per Availity, reviewer has access to Cerner Historical Authorization Comments-Primary : No Authorization Comments Found JORGE VALLES, RN - 08/12/2021 14:07 EDT documented in this encounter Plan of Treatment Not on file documented as of this encounter Visit Diagnoses Not on filedocumented in this encounter Care Teams Architecture Department Chair Relationship Specialty Start Date End Date Reji Castro MD [address] [place] [id number] PCP - General Adolescent Medicine 10/02/22 documented as of this encounter
--- OUTSIDE RECORDS SUMMARY | 2025-05-17 10:36 | XMS_ITS | Encounter Summary ---
Author Organization [employer] Address [address] [place] [address] Care Team Providers Care Trust Officer Name Role Phone Reji Castro MD Primary Care Provider [phone] Encounter Details Date Type Department Care Team (Late st Contact Info) Description 08/19/2021 Transcribed Document [facility] [place] Family Medicine [address] [place] [address] ProviderDelvin MD [address] [place] [address] Social History Tobacco Use Types Packs/Day Years [...] Moraes Resident Pharmacist - 08/19/2021 11:39 EDT documented in this encounter Plan of Treatment Not on file documented as of this encounter Visit Diagnoses Not on filedocumented in this encounter Care Teams Trust Officer Relationship Specialty Start Date End Date Reji Castro MD [address] [place] [id number] PCP - General Adolescent Medicine 10/02/22 documented as of this encounter
--- OUTSIDE RECORDS SUMMARY | 2025-05-17 10:36 | XMS_ITS | Encounter Summary ---
Author Organization [employer] In [employer] Address [address] [place] [address] Care Team Providers Care Customs Guard Name Role Phone Reji Castro MD Primary Care Provider [phone] Encounter Details Date Type Department Care Team (Late st Contact Info) Description 08/19/2021 Transcribed Document [facility] [place] Family Medicine [facility] [place] [address] ProviderDelvin MD [facility] [place] [address] Social History Tobacco Use Types Packs/Day Years [...] Warfarin HPI: 56 y/o F presenting to [facility] with history of COPD, atrial [...] cefTRIAXone: 2 Gram, 100 mL/Hr, IV Piggyback, [id number]. citalopram: 40 mg, Oral, Daily. diphenhydrAMINE: 50 [...] questions. Thank you, Andrea Moraes, PharmD PGY1 Health Unit Supervisor Pager: [phone] Ext. [phone] documented in this encounter Plan of Treatment Not on file documented as of this encounter Visit Diagnoses Not on filedocumented in this encounter Care Teams Customs Guard Relationship Specialty Start Date End Date Reji Castro MD [address] [place] [address] PCP - General Adolescent Medicine 10/02/22 documented as of this encounter
--- OUTSIDE RECORDS SUMMARY | 2025-05-17 10:36 | XMS_ITS | Encounter Summary ---
Author Organization [employer] Address [address] [place] [address] Care Team Providers Care Auto Research Engineer Name Role Phone Reji Castro MD Primary Care Provider [phone] Encounter Details Date Type Department Care Team (Late st Contact Info) Description 08/19/2021 Transcribed Document [facility] Radiology [address] [place] [address] Loren Solorzano MD [address] [place] [address] [place] [id number] Social History Tobacco Use Types Packs/Day Years [...] Bioprosthetic mitral valve replacement / SNOMED CT 488502209 / Confirmed Chronic kidney disease / SNOMED CT 7133742645 / Confirmed COPD - Chronic obstructive pulmonary disease / SNOMED CT 192459552 / Confirmed History of obstructive sleep apnea / IMO 11344859 / Confirmed HLD - Hyperlipidemia / SNOMED CT 309468790 / Confirmed HTN - Hypertension / SNOMED CT 1629183751 / Confirmed Canceled: Atrial fibrillation / SNOMED CT 96751303, Active Problems (25) AIHA (autoimmune hemolytic anemia) [...] Maximum Temp 99.1 (AUG 19 06:30) 98 ([facility] [place]00) 99.1 ([facility] [place] 06:30) Apical HR 87 ([facility] [place] 20:53) 87 ([facility] [place] 20:53) 87 ([facility] [place] 20:53) Mon HR 81 (AUG 19 06:30) 72 ([facility] [place] 21:00) 87 ([facility] [place] 15:27) Resp Rate 18 ([facility] [place] 06:30) 16 ([facility] [place] 00:00) 20 ([facility] [place] 18:17) SBP 117 ([facility] [place] 06:30) 94 ([facility] [place] 21:00) 120 ([facility] [place] 18[facility]17) DBP 67 ([facility] [place] 06:30) L 55 ([facility] [place] 21:00) 67 ([facility] [place] 06:30) MAP 85 ([facility] [place] 06:30) 67 ([facility] [place] 21:00) 87 ([facility] [place] 18:17) SpO2 98 (AUG 19 06:30) L [...] data available Radiology Results (Last 48 hours) [id number] -- 08/11/2021 21:21 CR Chest 1 Vw [...] Hold home meds SSI #Depression Celexa #Pain [place] 10 mg every 6 hours as needed [...] filedocumented in this encounter Care Teams Auto Research Engineer Relationship Specialty Start Date End Date Reji Castro MD [address] [place] [id number] PCP - General Adolescent Medicine 10/02/22 documented as of this encounter
--- OUTSIDE RECORDS SUMMARY | 2025-05-17 10:36 | XMS_ITS | Encounter Summary ---
Author Organization [employer] Address [address] [place] [address] Care Team Providers Care Windows Security Engineer Name Role Phone Reji Castro MD Primary Care Provider [phone] Encounter Details Date Type Department Care Team (Late st Contact Info) Description 08/14/2021 Transcribed Document [facility] [place] [facility] [place] [facility] [place] [address] ProviderDelvin MD [address] [place] [address] Social History Tobacco Use Types Packs/Day Years [...] Celestin MD - 08/14/2021 7:45 AM CDT [facility] Main OR IntraOp Summary Primary Physician: NENA PEARSON MD-SUR Finalized Date/Time: 08/18/21 09:41:55 Pt. Name: TAMAYO IRINAGE Solis/Sex: 1965 Female Med Rec #: [id number] Physician: VINCE BELLO MD Financial #: [id number] Pt. Type: I Room/Bed: [facility]/ Admit/Disch: 08/11/21 21:21:00 - Institution: [facility] IntraOp Case Attendance Entry 1 Entry 2 Entry 3 Case Attendee NENA PEARSON MD-SUR Montgomery, Hazel, RN Poe, Kali, RN Role Performed Surgeon/Proceduralist, Carton Forming Machine Operator, First Carton Forming Machine Operator, Second First Time In 08/14/21 07:34:00 08/14/21 [...] Case Attendee Randee Swain, Scrub TAMELA PRITCHETT, BARREL HANDLER BORIS VEGAS Tech MD-ANS Role Performed Scrub, First BARREL HANDLER/Nurse Rotary Drill Operator Helper Anesthesiologist of Record Time In 08/14/21 07:34:00 08/14/21 07:34:00 08/14/21 07:34:00 Time Out 08/14/21 08:17:00 08/14/21 08:17:00 08/14/21 08:17:00 Procedure Vascular Access Removal Vascular Access Removal Vascular Access Removal Other Attendee Superficial Wound Closed By: Last Modified By: Erika Montgomery, Erika Chand, Erika Chand, JEREMIAH 08/14/21 08:22:17 08/14/21 08:22:17 08/14/21 08:22:17 Entry 7 Case Attendee OTHER, ATTENDEE #1 Role Performed BARREL HANDLER/Nurse Rotary Drill Operator Helper Time In 08/14/21 07:34:00 Time Out 08/14/21 08:17:00 Procedure Vascular Access Removal Other Attendee JOEY HOBBS BARREL HANDLER STUDENT Superficial Wound Closed By: Last Modified By: Erika Montgomery RN 08/14/21 10:50:59 [facility] IntraOp Case Attendance Audit 08/14/21 10:50:59 Hybrid Technologist: LIAM Modifier: LIAM 7 <*> Procedure Vascular Access Removal 7 <*> Other Attendee JOEY PROCTOR BARREL HANDLER STUDENT 08/14/21 08:24:52 Hybrid Technologist: LAFAVEHM Modifier: LAFAVEHM <+> 7 Case Attendee <+> 7 Role Performed <+> 7 Time In <+> 7 Time Out <+> 7 Procedure <+> 7 Other Attendee 08/14/21 08:22:17 Hybrid Technologist: LAFAVEHM Modifier: LAFAVEHM 1 <+> Time In [...] Out 6 <*> Procedure Vascular Access Removal [facility] IntraOp Case Times Entry 1 Patient In Room Time 08/14/21 07:34:00 Out Room Time 08/14/21 08:17:00 Anesthesia Start Time 08/14/21 07:34:00 Stop Time 08/14/21 08:17:00 Surgery / Procedure Times Start Time 08/14/21 07:45:00 Stop Time 08/14/21 08:08:00 Last Modified By: Erika Montgomery RN 08/14/21 08:17:16 [facility] IntraOp Case Times Audit 08/14/21 08:17:16 Hybrid Technologist: LAFAVEHM Modifier: LAFAVEHM <+> 1 Out Room Time <+> 1 Stop Time <+> 1 Stop Time 08/14/21 07:46:45 Hybrid Technologist: LAFAVEHM Modifier: LAFAVEHM <+> 1 Start Time [facility] IntraOp Cautery Entry 1 ESU Identification Cautery Type Monopolar ESU ID Number [id number] ID Type Hospital Number Cautery Settings Cut Setting 30 Coag Setting 30 ESU Grounding Pad Ground Pad Type Reusable electrode pad Grounding Pad Type MEGADYNE PAD Comment Grounding Pad Site Posterior Grounding Pad Site Warm, dry and intact Skin Condition Before Cautery Grounding Pad Site Unchanged Skin Condition After Cautery Last Modified By: Erika Montgomery RN 08/14/21 07:19:50 [facility] IntraOp Communication Entry 1 Communication To Family/Significant other Communication By Erika Montgomery RN Date and Time 08/14/21 07:47:00 Last Modified By: Erika Montgomeyr RN 08/14/21 07:47:41 [facility] IntraOp Counts Verification Entry 1 Procedure Vascular Access Removal Count Info Count Type Sponge, Sharps, Miscellaneous Counts Verification Baseline/pre-procedure Sequence Counts Performed By Count Performed By Randee Swain Scrub (Scrub) Tech Count Performed By Jj Mancuso RN (RN) Last Modified By: Erika Montgomery RN 08/14/21 07:18:54 [facility] IntraOp Counts Final Entry 1 Procedure Vascular Access Removal Final Count Info Count Type Sponge, Sharps, Miscellaneous Counts Verification Skin Closure/end of Sequence procedure Count Results Correct, surgeon notified Counts Performed By Count Performed By Radnee Swain Scrub (Scrub) Tech Count Performed By Jj Mancuso RN (RN) Last Modified By: Erika Montgomery RN 08/14/21 08:02:40 [facility] IntraOp Counts Final Audit 08/14/21 08:02:40 Hybrid Technologist: LIAM Modifier: LIAM 1 <*> Procedure Vascular Access Removal 1 <*> Count Type Sponge, Sharps, Miscellaneous 1 <*> Count Results Correct, surgeon notified 1 <+> Count Performed By (Scrub) 1 <+> Count Performed By (RN) 1 <*> Counts Verification Sequence Skin Closure/end of procedure [facility] IntraOp Cultures and Spec Summary Entry 1 Cultrures and Specimens Specimen Ordered: Yes Test(s) Culture(s)/Microbiology Requested/Final Disposition Last Modified By: Erika Montgomery RN 08/14/21 07:51:28 [facility] IntraOp Delays Entry 1 Delay Reason Other Duration 4 Minute(s) Comment MEDICATION DELAY Last Modified By: Erika Montgomery RN 08/14/21 07:49:40 [facility] IntraOp Departure from OR Entry 1 Integumentary Assessment Transfer/Handoff Transfer to Other Handoff Method Bedside/Face to face, Phone call, Online nursing summary Post-op Transport Stretcher/Roderick Via Patient Transport TAMELA PRITCHETT CRNA Accompanied by Transfer/Handoff RN REPORT ( ELEVATED Comments HOB WEIGHT OVER DRRESSING (IV BAG) RESTRICT USE LEFT ARM X [address] PEARSON. TRANSPORT TO FLOOR BY [facility] Last Modified By: Erika Montgomery RN 08/14/21 08:21:55 [facility] IntraOp Departure from OR Audit 08/14/21 08:21:55 Hybrid Technologist: LIAM Modifier: LAFBEAR 1 <*> Transfer/Handoff Comments TRANSPORT TO FLOOR BY [facility] 1 <+> Post-op Transport Via [facility] IntraOp Dressing and Packing Entry 1 Type Dressing Location L UPPER CHEST Wound Dressing Item 4x4's, Skin Closure Glue Other Comments PRESSURE DRESSING Last Modified By: Erika Montgomery RN 08/14/21 08:19:18 [facility] IntraOp Fire Risk Assessment Entry [...] Modified By: Erika Montgomery RN 08/14/21 07:49:49 [facility] IntraOp Fire Risk Assessment Audit 08/14/21 07:49:49 Hybrid Technologist: LIAM Modifier: LAFAVEHM <+> 1 Fire Risk Assessment Verified Date/Time [facility] IntraOp General Case Riddler Operator 1 Case Information OR OR 08 [facility] Case Level 1 Room Verified Yes Wound Class I - Clean Specialty General Anesthesia Type MAC ASA Class 4 Diagnosis Preop Diagnosis INFECTED SANAM CATH Postop Same As Preop No Postop Diagnosis SEE MD POST OP NOTES Last Modified By: Erika Montgomery RN 08/14/21 07:52:14 [facility] IntraOp General Case Data Audit 08/14/21 07:52:14 Hybrid Technologist: LIAM Modifier: LAFRUSTYHM <+> 1 Preop Diagnosis [facility] IntraOp Intraoperative Assessment Entry 1 Handoff Method Bedside/Face to face, Phone call, Online nursing summary Valid History / Yes Physical in Chart Preoperative Yes Checklist Reviewed/Evaluated Allergies Reviewed Yes Patient is Latex No Sensitive Present Upon IVs Arrival to OR Last Modified By: Erika Montgomery RN 08/14/21 07:20:57 [facility] IntraOp Intraoperative Equipment Entry 1 Type Monitoring Equipment Equipment Juan Carlos Suction System Intraop Monitoring Antiembolic Devices Scopes Photo/Video Documentation Last Modified By: Erika Montgomery RN 08/14/21 07:21:08 [facility] IntraOp Medication Admin Entry 1 Medication/Irrigant lidocaine 1% w/ epinephrine 1:100,000 30ml vial - [id number] Route of LOCAL Administration Dose Dose 10 Unit of Measure ml Administered By NENA PEARSON MD-SUR Procedure Irrigation Last Modified By: Erika Montgomery RN 08/14/21 08:02:53 [facility] IntraOp Medication Admin Audit 08/14/21 08:02:53 Hybrid Technologist: LAFAVEHM Modifier: LAFAVEHM 1 <*> Medication/Irrigant lidocaine 1% w/ epinephrine 1:100,000 30ml vial - [id number] 1 <+> Dose [facility] IntraOp Patient Positioning Entry 1 [...] Modified By: Erika Montgomery RN 08/14/21 07:23:01 [facility] IntraOp Patient Positioning Audit 08/14/21 07:23:01 Hybrid Technologist: LAFAVEHM Modifier: LAFAVEHM 1 <*> Procedure Vascular Access Removal 1 <+> Positioning Verified by Anesthesia 1 <+> Positioning Verified by Surgeon 1 <+> Positioned By [facility] IntraOp Sign In Entry 1 [...] Modified By: Erika Montgomery RN 08/14/21 07:47:09 [facility] IntraOp Sign Out Entry 1 [...] Modified By: Erika Montgomery RN 08/14/21 08:22:10 [facility] IntraOp Sign Out Audit 08/14/21 08:22:10 Hybrid Technologist: LIAM Modifier: LAFAVEHM <+> 1 RN Sign Out Signature Date/Time [facility] IntraOp Skin Prep Entry 1 Procedure Vascular Access Removal Prescribed Yes Pre-Surgical Prep Completed Prep Area CHEST INCLUDE LEFT SHOULDER Intraop Prep Prep Agents Chloraprep Prep by NENA PEARSON MD-TATYANA Hair Removal Methods No hair removal performed Last Modified By: Erika Montgomery RN 08/14/21 07:49:03 [facility] IntraOp Surgical Procedures Entry 1 Procedure Vascular Access Removal Additional (PORT A CATH REMOVAL) Procedure Description Primary Procedure Yes Primary Surgeon NENA PEARSON MD-TATYANA Start 08/14/21 07:45:00 Stop 08/14/21 08:08:00 Anesthesia Type MAC Specialty General Wound Class I - Clean Last Modified By: Erika Montgomery RN 08/14/21 08:22:14 General Comments: PATIENT ON SCHEDULED ANTIBIOTICS/ NO ADDITIONAL ANTIBIOTICS PER SURGEON [facility] IntraOp Surgical Procedures Audit 08/14/21 08:22:14 Hybrid Technologist: LIAM Modifier: LAFAVEHM 1 <*> Stop 08/14/21 07:48:13 Hybrid Technologist: LIAM Modifier: LIAM 1 <*> Start 1 <*> Start [facility] IntraOP Time Out Entry 1 [...] on filedocumented in this encounter Care Teams Windows Security Engineer Relationship Specialty Start Date End Date Reji Castro MD [address] [place] [id number] PCP - General Adolescent Medicine 10/02/22 documented as of this encounter
--- OUTSIDE RECORDS SUMMARY | 2025-05-17 10:36 | XMS_ITS | Encounter Summary ---
Author Organization [employer] Address [address] [place] [address] Care Team Providers Care Customer Support Advisor Name Role Phone Reji Castro MD Primary Care Provider [phone] Encounter Details Date Type Department Care Team (Late st Contact Info) Description 08/16/2021 Transcribed Document [facility] [place] [facility] [place] [address] ProviderDelvin MD [address] [place] [address] Social History Tobacco Use Types Packs/Day Years [...] HPI: 56 y/o F presenting to [facility] with history of COPD, atrial fibrillation, [...] mg, 14 mL, 128 mL/Hr, IV Piggyback, [id number]. diphenhydrAMINE: 25 mg, Oral, Q6H, PRN: Itching. [...] questions. Thank you, Andrea Moraes, GwendolynD PGY1 Coater Pager: [phone], Ext. [phone] documented in this encounter Plan of Treatment Not on file documented as of this encounter Visit Diagnoses Not on filedocumented in this encounter Care Teams Customer Support Advisor Relationship Specialty Start Date End Date Reji Castro MD [address] [place] [address] PCP - General Adolescent Medicine 10/02/22 documented as of this encounter
--- OUTSIDE RECORDS SUMMARY | 2025-05-17 10:36 | XMS_ITS | Encounter Summary ---
Author Organization [employer] Address [address] [place] [address] Care Team Providers Care Hotel Clerk Name Role Phone Reji Castro MD Primary Care Provider [phone] Encounter Details Date Type Department Care Team (Late st Contact Info) Description 08/14/2021 Transcribed Document [facility] [place] [facility] [place] [address] ProviderDelvin MD [facility] [place] [address] Social History Tobacco Use Types Packs/Day Years Used Date Smoking Tobacco: Never Assessed Comments Unknown Sex and Gender Information Value Date Recorded Sex Assigned at Not on file Legal Sex Female 4:32 PM CDT Gender Identity Not on file Sexual Orientation Not on file documented as of this encounter Miscellaneous Notes * Cerner Conversion Note - Delvin ProviderMD - 08/14/2021 2:00 AM CDT [employer] Details Entered On: 08/14/2021 6:50 EDT Performed [...] filedocumented in this encounter Care Teams Hotel Clerk Relationship Specialty Start Date End Date Reji Castro MD [address] [place] [address] PCP - General Adolescent Medicine 10/02/22 documented as of this encounter
--- OUTSIDE RECORDS SUMMARY | 2025-05-17 10:36 | XMS_ITS | Encounter Summary ---
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 Ministry Provided to : Patient Spiritual/Emotional Acuity : Medium Spiritual Framework : Integrated, provides strength/resource Active in a [employer] : Yes Active in a [employer] Comment : [facility] Congregation Preference : Episcopalian Spiritual Leader Requested : No Jewish Sacrament of the Sick/Anointing Needed : No Airplane Pilot Supervisor Follow-up Needed : No Rome Burgos Chaplain-Non Cert - 08/25/2021 10:13 EDT Spiritual Assessment Patient's Community/Relationship : Strength in patient's life Supportive/Healthy Relationships : Yes Supportive Congregation Community : Yes Patient's Sense of Meaning [...] : Yes Spiritual Assessment Comment/Summary Points : TOW OPERATOR. PT is experiencing significant chest pain. She was desirous of prayer, explaining her involvement with her Episcopalian restorationist as well. One of her daugthers is a Orthopedic Surgery Nurse here at [facility]. She reported she is living in a rented house in [place] [facility] as her home in [place] [facility]. Airplane Pilot Supervisor provided pastoral presence, support, and prayer. Family; two daughters, two sisters, one brother, and their families. Spirital Assessment Comment/Summary Report : SPIRITUAL ASSESSMENT COMMENT/SUMMARY No qualifying data available. Rome Burgos Chaplain-Non Cert - 08/25/2021 10:13 EDT Interventions Advance Directive Information Provided : No Emotional Support : Empathic/Engaged listening, Established trust, Feelings expressed, Hope strengths identified, Meaning strengths identified, Relationship strengths identified Spiritual and Congregation : Prayer shared Rome Burgos Chaplain-Non Cert - 08/25/2021 10:13 EDT Electronically signed by [facility] Conversion Director Family Cerner at 03/09/2023 8:33 PM CDT documented in this encounter Plan of Treatment Not on file documented as of this encounter Visit Diagnoses Not on filedocumented in this encounter Care Teams [place] Boatman Relationship Specialty Start Date End Date Reji Castro MD [address] [place] [address] PCP - General Adolescent Medicine 10/02/22 documented as of this encounter
--- OUTSIDE RECORDS SUMMARY | 2025-05-17 10:36 | XMS_ITS | Encounter Summary ---
Author Organization [employer] Address [address] [place] [address] Care Team Providers Care Automatic Maintainer Name Role Phone Reji Castro MD Primary Care Provider [phone] Encounter Details Date Type Department Care Team (Late st Contact Info) Description 08/12/2021 Transcribed Document [facility] [place] [address] [place] [address] ProviderDelvin MD [address] [place] [address] Social History Tobacco Use Types Packs/Day Years [...] On: 08/12/2021 5:00 EDT by Morelia Jose, [facility] Unit Coord Height and Weight, Routine Routine Weight Source : Standing scale Routine Weight Entry Format : [place] Routine Weight, Pounds : 223 lb Routine Weight, Ounces : 4 oz Routine Weight Calculation : 101.48 kg Height Source : Stated Height Entry Format : [place] Height, Feet : 5 ft Height, Inches : 4 Inch Clinical Height : 162.56 cm Body Surface Area (BSA), Routine : 2.05 m2 Body Mass Index (BMI), Routine : 38.4 kg/m2 Morelia Jose, Container Washer-Health Unit Coord - 08/12/2021 5:18 EDT documented in this encounter Plan of Treatment Not on file documented as of this encounter Visit Diagnoses Not on filedocumented in this encounter Care Teams Automatic Maintainer Relationship Specialty Start Date End Date Reji Castro MD [address] [place] [address] PCP - General Adolescent Medicine 10/02/22 documented as of this encounter
--- OUTSIDE RECORDS SUMMARY | 2025-05-17 10:36 | XMS_ITS | Encounter Summary ---
Author Organization [employer] Address [address] [place] [address] Care Team Providers Care Pharmacy Intake Coordinator Name Role Phone Reji Castro MD Primary Care Provider [phone] Encounter Details Date Type Department Care Team (Late st Contact Info) Description 08/14/2021 Transcribed Document [facility] [place] [address] [place]Delvin [place] [address] Social History Tobacco Use Types Packs/Day Years [...] - 08/14/2021 3:04 PM CDT Patient: IRINA TMAAYO Age: 56 years Sex: Female : 1965 Associated Diagnoses: None Author: Andrea Moraes, Resident Pharmacist Pharmacy Consult - Warfarin HPI: 56 y/o F presenting to [facility] with history of COPD, atrial fibrillation, [...] mg, 14 mL, 128 mL/Hr, IV Piggyback, [id number]. docusate-senna: 1 Tab, Oral, BID. famotidine: 20 [...] questions. Thank you, Andrea Moraes, PharmD PGY1 Automatic Gluing Machine Operator Pager: [phone] Ext. [phone] documented in this encounter Plan of Treatment Not on file documented as of this encounter Visit Diagnoses Not on filedocumented in this encounter Care Teams Pharmacy Intake Coordinator Relationship Specialty Start Date End Date Reji Castro MD [address] [place] [address] PCP - General Adolescent Medicine 10/02/22 documented as of this encounter
--- OUTSIDE RECORDS SUMMARY | 2025-05-17 10:36 | XMS_ITS | Encounter Summary ---
Author Organization [employer] Address [address] [place] [address] Care Team Providers Care Heel Seat Trimmer Name Role Phone Reji Castro MD Primary Care Provider [phone] Encounter Details Date Type Department Care Team (Late st Contact Info) Description 08/12/2021 Transcribed Document [facility] [place] Family Medicine [facility] [place] [address] ProviderDelvin MD [address] [place] [address] Social History Tobacco Use Types Packs/Day Years [...] on filedocumented in this encounter Care Teams Heel Seat Trimmer Relationship Specialty Start Date End Date Reji Castro MD [address] [place] [address] PCP - General Adolescent Medicine 10/02/22 documented as of this encounter
--- OUTSIDE RECORDS SUMMARY | 2025-05-17 10:36 | XMS_ITS | Encounter Summary ---
Author Organization [employer] Address [address] [place] [address] Care Team Providers Care Photography Teacher Name Role Phone Reji Castro MD Primary Care Provider [phone] Encounter Details Date Type Department Care Team (Late st Contact Info) Description 08/16/2021 Transcribed Document [facility] [place] [address] [place] [address] ProviderDelvin MD [address] [place] [address] Social History Tobacco Use Types Packs/Day Years [...] Powerplans Initiated/Discontinued as Appropriate : Yes JULIO LUDN RN-PATIENT CARE BEDSIDE NON-EXEMPT - 08/16/2021 17:03 EDT documented in this encounter Plan of Treatment Not on file documented as of this encounter Visit Diagnoses Not on filedocumented in this encounter Care Teams Photography Teacher Relationship Specialty Start Date End Date Reji Castro MD [address] [place] [address] PCP - General Adolescent Medicine 10/02/22 documented as of this encounter
--- OUTSIDE RECORDS SUMMARY | 2025-05-17 10:36 | XMS_ITS | Encounter Summary ---
Author Organization [employer] Address [address] [place] [address] Care Team Providers Care Sheet Tailer Name Role Phone Reji Castro MD Primary Care Provider [phone] Encounter Details Date Type Department Care Team (Late st Contact Info) Description 08/17/2021 Transcribed Document [facility] Radiology [address] [place] [address] Loren Solorzano MD [address] [place] [address] [address] [id number] Social History Tobacco Use Types Packs/Day Years [...] mg, 14 mL, 128 mL/Hr, IV Piggyback, [id number] Dextrose 50% injection: 12.5 Gram, IV Push, [...] mL 700 mg 14 mL, IV Piggyback, [id number] famotidine 20 mg tab 20 mg 1 [...] Bioprosthetic mitral valve replacement / SNOMED CT 933443609 / Confirmed Chronic kidney disease / SNOMED CT 2383808652 / Confirmed COPD - Chronic obstructive pulmonary disease / SNOMED CT 112812995 / Confirmed History of obstructive sleep apnea / IMO 13712536 / Confirmed HLD - Hyperlipidemia / SNOMED CT 488426092 / Confirmed HTN - Hypertension / SNOMED CT 7683141993 / Confirmed Canceled: Atrial fibrillation / SNOMED CT 67522216, Active Problems (25) AIHA (autoimmune hemolytic anemia) [...] Hold home meds SSI #Depression Celexa #Pain Cypress 10 mg every 6 hours as needed [...] filedocumented in this encounter Care Teams Sheet Tailer Relationship Specialty Start Date End Date Reji Castro MD [address] [place] [address] PCP - General Adolescent Medicine 10/02/22 documented as of this encounter
--- OUTSIDE RECORDS SUMMARY | 2025-05-17 10:36 | XMS_ITS | Encounter Summary ---
Author Organization [employer] Address [address] [place] [address] Care Team Providers Care Insurance Examiner Name Role Phone Reji Castro MD Primary Care Provider [phone] Encounter Details Date Type Department Care Team (Late st Contact Info) Description 08/12/2021 Transcribed Document [facility] [place] [address] [place] [address] ProviderDelvin MD [address] [place] [address] Social History Tobacco Use Types Packs/Day Years [...] on filedocumented in this encounter Care Teams Insurance Examiner Relationship Specialty Start Date End Date Reji Castro MD [address] [place] [address] PCP - General Adolescent Medicine 10/02/22 documented as of this encounter
--- OUTSIDE RECORDS SUMMARY | 2025-05-17 10:36 | XMS_ITS | Encounter Summary ---
Author Organization [employer] Address [address] [place] [address] Care Team Providers Care Education Department Registrar Name Role Phone Reji Castro MD Primary Care Provider [phone] Encounter Details Date Type Department Care Team (Late st Contact Info) Description 08/14/2021 Transcribed Document [facility] [place] [address] [place] [address] ProviderDelvin MD [address] [place] [address] Social History Tobacco Use Types Packs/Day Years [...] Celestin MD - 08/14/2021 7:45 AM CDT [facility] Main OR Preop Summary Primary Physician: NENA PEARSON MD-[facility] Finalized Date/Time: 08/14/21 09:52:23 Pt. Name: IRINA TAMAYO/Sex: 1965 Female Med Rec #: [id number] Physician: VINCE BELLO MD Financial #: [id number] Pt. Type: I Room/Bed: 454/1 Admit/Disch: 08/11/21 21:21:00 - Institution: [facility] PreOp Case Times Entry 1 In Preop 08/14/21 06:28:00 Ready for Holding n/a Room Patient Ready for 08/14/21 06:46:00 Surgery Patient Out of Preop 08/14/21 07:32:00 Patient Out of n/a Holding Room Last Modified By: Charan Dutton Rn 08/14/21 09:52:22 [facility] PreOp Case Times Audit 08/14/21 09:52:22 Documentation Designer: [id number] Modifier: [id number] <+> 1 Patient Out of Preop Finalized By: Charan Dutton, Rn Document Signatures Signed By: Charan Dutton Rn 08/14/21 09:52 Electronically signed by Lanny [facility] Conversion Service Loss Control Consultant Cerner at 03/09/2023 8:46 PM CDT documented in this encounter Plan of Treatment Not on file documented as of this encounter Visit Diagnoses Not on filedocumented in this encounter Care Teams Education Department Registrar Relationship Specialty Start Date End Date Reji Castro MD [address] [place] [id number] PCP - General Adolescent Medicine 10/02/22 documented as of this encounter
--- OUTSIDE RECORDS SUMMARY | 2025-05-17 10:36 | XMS_ITS | Encounter Summary ---
Author Organization [employer] Address [address] [place] [address] Care Team Providers Care Administrative Staff Supervisor Name Role Phone Reji Castro MD Primary Care Provider [phone] Encounter Details Date Type Department Care Team (Late st Contact Info) Description 08/16/2021 Transcribed Document [facility] [place] Medicine [address] [place] [address] ProviderDelvin MD [address] [place] [address] Social History Tobacco Use Types Packs/Day Years [...] filedocumented in this encounter Care Teams Administrative Staff Supervisor Relationship Specialty Start Date End Date Reji Castro MD [address] [place] [address] PCP - General Adolescent Medicine 10/02/22 documented as of this encounter
--- OUTSIDE RECORDS SUMMARY | 2025-05-17 10:36 | XMS_ITS | Encounter Summary ---
Author Organization [employer] Address [address] [place] [address] Care Team Providers Care Earth Auger Operator Name Role Phone Reji Castro MD Primary Care Provider [phone] Encounter Details Date Type Department Care Team (Late st Contact Info) Description 08/19/2021 Transcribed Document [facility] [place] [facility] [address] ProviderDelvin MD [facility] [place] [address] Social History Tobacco Use Types Packs/Day Years [...] her port could not be accessed. Her client architect aspirated fluid from the port that was evidently purulent. I have not yet been able to track down that culture. After the aspiration she developed fever to 103, severe CHEUNG, myalgias and arthralgias. She was admitted to [facility]. She was in the hospital for [...] antibiotics. On 08/08 she presented to a [facility] after she developed severe CHEUNG and myalgias w/o prominent fever. She was subsequently contacted and told to report to [facility] because she had + blood cutures concerning for an infected portacath +/- PVE. 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 Integumentary: Warm, [place]. Neurologic: Alert, Oriented, No focal deficits. Psychiatric: [...] on filedocumented in this encounter Care Teams Earth Auger Operator Relationship Specialty Start Date End Date Reji Castro MD [address] [place] [address] PCP - General Adolescent Medicine 10/02/22 documented as of this encounter
--- OUTSIDE RECORDS SUMMARY | 2025-05-17 10:36 | XMS_ITS | Encounter Summary ---
Author Organization [employer] Address [address] [place] [address] Care Team Providers Care Range Mechanic Name Role Phone Reji Castro MD Primary Care Provider [phone] Encounter Details Date Type Department Care Team (Late st Contact Info) Description 08/16/2021 Transcribed Document [facility] [place] Medicine [place] [address] ProviderDelvin MD [address] [place] [address] Social History Tobacco Use Types Packs/Day Years [...] Bed scale Routine Weight Entry Format : [place] Routine Weight, Pounds : 190 lb Routine Weight Calculation : 86.36 kg Height Source : Stated Height Entry Format : [place] Height, Feet : 5 ft Height, Inches [...] on filedocumented in this encounter Care Teams Range Mechanic Relationship Specialty Start Date End Date Reji Castro MD [address] [place] [address] PCP - General Adolescent Medicine 10/02/22 documented as of this encounter
--- OUTSIDE RECORDS SUMMARY | 2025-05-17 10:36 | XMS_ITS | Encounter Summary ---
Author Organization [employer] Address [address] [place] [address] Care Team Providers Care Water Quality Specialist Name Role Phone Reji Castro MD Primary Care Provider [phone] Encounter Details Date Type Department Care Team (Late st Contact Info) Description 08/25/2021 Transcribed Document [facility] [place] [address] [place] [address] ProviderDelvin MD [address] [place] [address] Social History Tobacco Use Types Packs/Day Years [...] than 8. she tells me that her bindery machine tender has recommended she stay above 8 for [...] cefTRIAXone: 2 Gram, 100 mL/Hr, IV Piggyback, [id number] diphenhydrAMINE: 25 mg, Oral, Q6H, PRN: Itching [...] Oral, BID cefTRIAXone 2 Gram, IV Piggyback, [id number] citalopram 20 mg tab 40 mg 2 [...] Bioprosthetic mitral valve replacement / SNOMED CT 230172134 / Confirmed Chronic kidney disease / SNOMED CT 2041712093 / Confirmed COPD - Chronic obstructive pulmonary disease / SNOMED CT 096288616 / Confirmed History of obstructive sleep apnea / IMO 86182433 / Confirmed HLD - Hyperlipidemia / SNOMED CT 931517102 / Confirmed HTN - Hypertension / SNOMED CT 9768306286 / Confirmed Canceled: Atrial fibrillation / SNOMED CT 73203152, Active Problems (25) AIHA (autoimmune hemolytic anemia) [...] 26.5 \ Radiology Results (Last 48 hours) [id number] -- 08/11/2021 21:21 CR Chest 1 Vw [...] Hold home meds SSI Depression Celexa Pain Victoria 10 mg every 6 hours as needed CODE STATUS. Full code Dispo: H/H stable, will transfuse one unit prbcs to reach goal hgb f/u trop need therapeutic inr for discharge, pharm managing Time spent 26 minutes Electronically signed by Lanny [facility] Conversion Transportation Director Cerner at 03/09/2023 8:51 PM CDT documented in this encounter Plan of Treatment Not on file documented as of this encounter Visit Diagnoses Not on filedocumented in this encounter Care Teams Water Quality Specialist Relationship Specialty Start Date End Date Reji Castro MD [address] [place] [address] PCP - General Adolescent Medicine 10/02/22 documented as of this encounter
--- OUTSIDE RECORDS SUMMARY | 2025-05-17 10:36 | XMS_ITS | Encounter Summary ---
Author Organization [employer] Address [address] [place] [address] Care Team Providers Care Stevedoring Superintendent Name Role Phone Reji Castro MD Primary Care Provider [phone] Encounter Details Date Type Department Care Team (Late st Contact Info) Description 08/19/2021 Transcribed Document [facility] [place] [address] [place] [address] ProviderDelvin MD [address] [place] [address] Social History Tobacco Use Types Packs/Day Years [...] Celestin MD - 08/19/2021 7:30 AM CDT [facility] Main OR Preop Summary Primary Physician: NENA PEARSON MD-[facility] Finalized Date/Time: 08/19/21 07:37:55 Pt. Name: IRINA TAMAYO/Sex: 1965 Female Med Rec #: [id number] Physician: VINCE BELLO MD Financial #: [id number] Pt. Type: I Room/Bed: 454/1 Admit/Disch: 08/11/21 21:21:00 - Institution: [facility] PreOp Case Times Entry 1 In Preop 08/19/21 05:49:00 Ready for Holding n/a Room Patient Ready for 08/19/21 06:35:00 Surgery Patient Out of Preop 08/19/21 07:33:00 Patient Out of n/a Holding Room Last Modified By: Merle Hicks Rn 08/19/21 07:37:50 [facility] PreOp Case Times Audit 08/19/21 07:37:50 Churn Operator: [email or web address] Modifier: [email or web address] <+> 1 Patient Out of Preop Finalized By: Merle Hicks Rn Document Signatures Signed By: Merle Hicks Rn 08/19/21 07:37 Electronically signed by Lanny [facility] Conversion Bag Mender Cerner at 03/09/2023 8:32 PM CDT documented in this encounter Plan of Treatment Not on file documented as of this encounter Visit Diagnoses Not on filedocumented in this encounter Care Teams Stevedoring Superintendent Relationship Specialty Start Date End Date Reji Castro MD [address] [place] [address] PCP - General Adolescent Medicine 10/02/22 documented as of this encounter
--- OUTSIDE RECORDS SUMMARY | 2025-05-17 10:36 | XMS_ITS | Encounter Summary ---
Author Organization [email or web address] Address [address] [place] [address] Care Team Providers Care Coo & Co Founder Name Role Phone Reji Castro MD Primary Care Provider [phone] Encounter Details Date Type Department Care Team (Late st Contact Info) Description 08/12/2021 Transcribed Document [facility] [place] [facility] [place] [address] ProviderDelvin MD [address] [place] [address] Social History Tobacco Use Types Packs/Day Years [...] difficulty recalling timeline of events. Discharged from [facility] approximately 3 weeks ago after being treated [...] mmol/L (Low) 08/11/2021 17:59 EDT Sodium Ur Dawn 29 mMole/Liter 08/12/2021 03:40 EDT Troponin I [...] # 0.76 K/uL (Low) 08/11/2021 17:59 EDT Dixie % 9.5 % 08/12/2021 00:22 EDT Dixie % 8.9 % 08/11/2021 17:59 EDT Dixie # 0.64 K/uL 08/12/2021 00:22 EDT Dixie # 0.61 K/uL 08/11/2021 17:59 EDT Eos [...] Appearance CLEAR2 08/11/2021 17:59 EDT Urine Specific Gail 1.007 08/11/2021 17:59 EDT Urine pH Dipstick [...] Negative2 08/11/2021 19:38 EDT Electronically signed by [facility] Conversion Lead Die Molder Cerner at 03/09/2023 9:01 PM CDT documented in this encounter Plan of Treatment Not on file documented as of this encounter Visit Diagnoses Not on filedocumented in this encounter Care Teams Coo & Co Founder Relationship Specialty Start Date End Date Reji Castro MD [address] [place] [address] PCP - General Adolescent Medicine 10/02/22 documented as of this encounter
--- OUTSIDE RECORDS SUMMARY | 2025-05-17 10:36 | XMS_ITS | Encounter Summary ---
Author Organization [employer] Address [address] [place] [address] Care Team Providers Care Event Security Officer Name Role Phone Reji Castro MD Primary Care Provider + [phone] Encounter Details Date Type Department Care Team (Late st Contact Info) Description 08/25/2021 Transcribed Document [facility] [place] Family [place] [address] [place] [address] ProviderDelvin MD [address] [place] [address] Social History Tobacco Use Types Packs/Day Years [...] Event : Transfer to telemetry Rapid Response Event Security Officer #1 : ROBERTO KOHLI RN Rapid Response Event Security Officer #2 : ROBERTO CAMARA, MANAGER OF INTERNAL AUDIT ROBERTO KOHLI RN - 08/25/2021 9:33 EDT [...] Chronic kidney disease, unspecified Heart failure, unspecified intermediate project manager (current) use of anticoagulants Medical screening exam [...] on filedocumented in this encounter Care Teams Event Security Officer Relationship Specialty Start Date End Date Reji Castro MD [address] [place] [address] PCP - General Adolescent Medicine 10/02/22 documented as of this encounter
--- OUTSIDE RECORDS SUMMARY | 2025-05-17 10:36 | XMS_ITS | Encounter Summary ---
Author Organization [employer] Address [address] [place] [address] Care Team Providers Care Dining Room Hostess Name Role Phone Reji Castro MD Primary Care Provider [phone] Encounter Details Date Type Department Care Team (Late st Contact Info) Description 08/21/2021 Transcribed Document [facility] [place] [facility] [place] [address] ProviderDelvin MD [facility] [place] [address] Social History Tobacco Use Types Packs/Day Years [...] Warfarin HPI: 56 y/o F presenting to [facility] with history of COPD, [...] cefTRIAXone: 2 Gram, 100 mL/Hr, IV Piggyback, [id number]. citalopram: 40 mg, Oral, Daily. diphenhydrAMINE: 50 [...] questions. Thank you, Andrea Moraes, PharmD PGY1 Table Maker Pager: [phone], Ext. [phone] Electronically signed by Lanny [facility] Conversion Local Government Legislator Cerner at 03/09/2023 8:45 PM CDT documented in this encounter Plan of Treatment Not on file documented as of this encounter Visit Diagnoses Not on filedocumented in this encounter Care Teams Dining Room Hostess Relationship Specialty Start Date End Date Reji Castro MD [address] [place] [address] PCP - General Adolescent Medicine 10/02/22 documented as of this encounter
--- OUTSIDE RECORDS SUMMARY | 2025-05-17 10:36 | XMS_ITS | Encounter Summary ---
Author Organization [employer] Address [address] [place] [address] Care Team Providers Care Grounds Cleaner Name Role Phone Reji Castro MD Primary Care Provider [phone] Encounter Details Date Type Department Care Team (Late st Contact Info) Description 08/16/2021 Transcribed Document [facility] [place] [facility] [place] [address] ProviderDelvin MD [facility] [place] [address] Social History Tobacco Use Types Packs/Day Years [...] 5. Diabetes mellitus type II E11.9 6. correction current use of anticoagulant Z79.01 At risk for central venous catheter associated infection Z91.89 Chronic kidney disease N18.9 Medical screening exam [id number] Medications Inpatient acetaminophen, 650 mg= 2 Tab, [...] failure) penicillins propafenone theophylline Electronically signed by [facility] Conversion Scrap Yard Worker Cerner at 03/09/2023 8:52 PM CDT documented in this encounter Plan of Treatment Not on file documented as of this encounter Visit Diagnoses Not on filedocumented in this encounter Care Teams Grounds Cleaner Relationship Specialty Start Date End Date Reji Castro MD [address] [place] [id number] PCP - General Adolescent Medicine 10/02/22 documented as of this encounter
--- OUTSIDE RECORDS SUMMARY | 2025-05-17 10:36 | XMS_ITS | Encounter Summary ---
Author Organization [employer] Address [address] [place] [address] Care Team Providers Care Staff Radiation Therapist Name Role Phone Reji Castro MD Primary Care Provider [phone] Encounter Details Date Type Department Care Team (Late st Contact Info) Description 08/14/2021 Transcribed Document [facility] [place] [address] [place] [address] ProviderDelvin MD [address] [place] [address] Social History Tobacco Use Types Packs/Day Years [...] Author: CHELI BEASLEY MD-CAR Basic Information Primary Cigar Bander: Dr. Delmar Geronimo Manager Research And Development: MD Nestor Subjective NAD Health Status Current [...] mL 700 mg 14 mL, IV Piggyback, [id number] famotidine 20 mg tab 20 mg 1 [...] of motion, Normal strength. Integumentary: Warm, Dry, [place]. Neurologic: Alert, Oriented. Psychiatric: Cooperative, Appropriate mood & affect. Results Review AUG 13 23:47 L 135 102 H 35 / H 114 4.2 29 H 1.80 \ SEP 22 23:47 \ L 8.1 / 5.5 206 / L 26.9 \ Cardiac Markers (Current Encounter/Past 24 Hours) CK 87 Units/Liter 08/13/2021 05:53 ProBNP 647 pg/mL VT 08/14/2021 00:14 Radiology Results (Last 48 hours) [id number] -- 08/11/2021 21:21 CR Abdomen 1 Vw [...] mechan MV, 4+ TR, no vegetation. Admitted [facility] 07/12, Negative CHUCHO, TTE for [...] appropriate per primary hosp service & primary 6th grade teacher. Will sign-off, call if questions. RV w/ Dr. Sawyer 1 wk post DC. 08/13/21 Resume Toprol XL 25 mg QHS. Reinitiation of other HF meds as appropriate. 08/12/21 CHUCHO to assess for endocarditis & mechanical causes of hemolysis. Obtain records from [facility]. Check haptoglobin, LDH, reticulocyte count. Continue other current CV meds. Electronically signed by Lanny [facility] Conversion Seat Cover Maker Cerner at 03/09/2023 8:53 PM CDT documented in this encounter Plan of Treatment Not on file documented as of this encounter Visit Diagnoses Not on filedocumented in this encounter Care Teams Staff Radiation Therapist Relationship Specialty Start Date End Date Reji Castro MD [address] [place] [address] PCP - General Adolescent Medicine 10/02/22 documented as of this encounter
--- OUTSIDE RECORDS SUMMARY | 2025-05-17 10:37 | XMS_ITS | Encounter Summary ---
Author Organization [employer] Address [address] [place] [address] Care Team Providers Care Restaurant Cook Name Role Phone Reji Castro MD Primary Care Provider [phone] Reason for Referral * Nuclear Medicine (Routine) - Closed Specialty Diagnoses / Procedures Referred By Contac t Referred To Contact Diagnoses Stage 3 chronic kidney disease, unspecified whether stage 3a or 3b CKD (HCC) Procedures NM parathyroid scan planar only Marion Umana MD Phone: tel: fax: Referral ID Status Reason Start Date Expiration Date Visits Re quested Visits Authorized [id number] Closed 10/02/2022 03/31/2023 1 1 Encounter Details Date Type Department Care Team (Late st Contact Info) Description 10/02/2022 Outside Orders [facility] Central Scheduling [address] [place] [address] Marion Umana MD [address] [facility] [address] [place] [address] Stage 3 chronic kidney disease, unspecified whether [...] (HCC) documented in this encounter Care Teams Restaurant Cook Relationship Specialty Start Date End Date Reji Castro MD [address] [place] [address] PCP - General Adolescent Medicine 10/02/22 documented as of this encounter
--- OUTSIDE RECORDS SUMMARY | 2025-05-17 10:37 | XMS_ITS | Encounter Summary ---
Author Organization [employer] Address [address] [place] [address] Care Team Providers Care Neonatologist Name Role Phone Reji Castro MD Primary Care Provider + [phone] Encounter Details Date Type Department Care Team (Late st Contact Info) Description 08/27/2021 Transcribed Document [facility] [place] Family Medicine [address] [place] [address] ProviderDelvin MD [address] [place] [address] Social History Tobacco Use Types Packs/Day Years [...] implanted port has two main parts: ??? [place]. The reservoir is the part where a [...] water are not available, use alcohol-based hand executive asst. ? Change your dressing as told by [...] provider. Document Revised: 03/01/2020 Document Reviewed: 12/11/2017 [employer] Patient Education ? 2020 [employer]. Cardiovascular Atrial Fibrillation Atrial fibrillation is a [...] of the heart. ??? An ambulatory cardiac cath lab manager to record your heart's activity for a [...] provider. Document Revised: 05/01/2020 Document Reviewed: 05/01/2020 [employer] Patient Education ? 2020 [employer]. Caregiving Implanted Port Home Guide An implanted [...] implanted port has two main parts: ??? [place]. The reservoir is the part where a [...] water are not available, use alcohol-based hand executive asst. ? Change your dressing as told by [...] provider. Document Revised: 03/01/2020 Document Reviewed: 12/11/2017 [employer]. Patient Education ? 2020 [employer]. Endocrinology Diabetes Mellitus and Nutrition, Adult [...] Berries. Apples. Oranges. Peaches. Apricots. Plums. Grapes. [place]. Papaya. Pomegranate. Kiwi. Cherries. Vegetables Lettuce. Spinach. Leafy greens, including kale, chard, yanira greens, and mustard greens. Beets. Cauliflower. Cabbage. Broccoli. Carrots. Green beans. Tomatoes. Peppers. Onions. Cucumbers. [place] sprouts. Grains Whole grains, such as whole-wheat [...] Do I need to meet with a certified lactation educator? Do I need to meet with a dietitian? What number can I call if I have questions? When are the best times to check my blood glucose? Where to find more information: ??? [place] Diabetes Association: diabetes.org ??? Academy of Nutrition and Dietetics: www.eatright.org ??? National [place] of Diabetes and Digestive and Kidney Diseases: [...] provider. Document Revised: 10/15/2020 Document Reviewed: 10/15/2020 [employer]. Patient Education ? 2020 [employer]. Hematology Warfarin Coagulopathy Warfarin coagulopathy refers [...] stopping any new medicines. Many prescription and rvos-ixn-mmocmdh medicines can interfere with warfarin. This includes ynre-yrw-gqyimap vitamins, dietary supplements, herbal medicines, and pain [...] that you work with a diet and animal nutrition teacher (dietitian). ??? Vitamin K makes [...] Preventing bleeding and injury ??? Some common gdnh-dxi-ksxfwvf medicines and supplements may increase the risk [...] diet. ??? You start or stop any bwbw-cpa-vkhlckc medicine, prescription medicine, or dietary supplement. ??? [...] provider. Document Revised: 10/21/2018 Document Reviewed: 01/26/2018 [employer] Patient Education ? 2020 [employer] Infectious Disease Bacteremia, Adult Bacteremia is [...] these instructions at home: Medicines ??? Take syri-bba-fxvfuls and prescription medicines only as told by [...] and water are not available, use hand executive asst. ??? You should wash your hands: ? [...] care provider. ??? Practice good oral hygiene. [place] your teeth two times a day, and [...] provider. Document Revised: 03/29/2020 Document Reviewed: 03/29/2020 [employer] Patient Education ? 2020 [employer]. Nephrology Acute Kidney Injury, Adult Acute kidney [...] these instructions at home: Medicines ??? Take wtlx-mas-ofxzdzw and prescription medicines only as told by [...] important. Where to find more information ??? [place] Association of Kidney Patients: www.aakp.org ??? National Kidney Foundation: www.kidney.org ??? [place] Kidney Fund: www.akfinc.org ??? [employer] Rehabilitation [...] provider. Document Revised: 09/17/2020 Document Reviewed: 09/17/2020 [employer] Patient Education ? 2020 [employer]. Chronic Kidney Disease, Adult Chronic kidney disease [...] these instructions at home: Medicines ??? Take mflb-uhm-ryxsqvn and prescription medicines only as told by [...] provider. Document Revised: 10/21/2018 Document Reviewed: 12/13/2017 [employer] Patient Education ? 2020 [employer]. Pharmacology Vitamin K Foods and Warfarin Warfarin [...] before making changes. ??? Work with a animal nutrition teacher (dietitian) to develop a meal plan that works best for you. What foods are high in vitamin K? Foods that are high in vitamin K contain more than 100 mcg (micrograms) per serving. These include: ??? Broccoli (cooked from fresh) ? ? cup (78 g) has 110 mcg. ??? [place] sprouts (cooked from fresh) ? ? cup [...] cup (90 g) has 444 mcg. ??? Mauritanian chard (cooked from fresh) ? ? cup [...] cup (54 g) has 8 mcg. ??? [place] with peel (raw) ? ? cup (52 g) has 9 mcg. ??? Grapes ? ? cup (76 g) has 12 mcg. ??? [place]gate ? 1 medium (207 g) has 9 [...] provider. Document Revised: 08/27/2020 Document Reviewed: 08/27/2020 [employer] Patient Education ? 2020 [employer]. Aspirin and Your Heart Aspirin is [...] The two forms of aspirin are: ? Cqr-lwvqilv-laxipl.This type of aspirin does not have a coating and is absorbed quickly. This type of aspirin also comes in a chewable form. ? Enteric-coated. This type of aspirin has a coating that releases the medicine very slowly. Enteric-coated aspirin might cause less stomach upset than zte-shfbwco-xcfqdg aspirin. This type of aspirin should not [...] these instructions at home Medicines ??? Take jgha-lys-yhsvicu and prescription medicines only as told by [...] Where to find more information ??? The [place] Heart Association: www.heart.org Contact a health care [...] on filedocumented in this encounter Care Teams Neonatologist Relationship Specialty Start Date End Date Reji Castro MD [address] [place] [id number] PCP - General Adolescent Medicine 10/02/22 documented as of this encounter
--- OUTSIDE RECORDS SUMMARY | 2025-05-17 10:37 | XMS_ITS | Encounter Summary ---
Author Organization [employer] Address [address] [place] [address] Care Team Providers Care Artillery Or Naval Gunfire Observer Name Role Phone Reji Castro MD Primary Care Provider [phone] Reason for Referral * Ultrasound (Routine) - Closed Specialty Diagnoses / Procedures Referred By Contac t Referred To Contact Diagnoses Acute renal failure, unspecified acute renal failure type (HCC) Procedures Ultrasound head neck soft tissue Marion Umana MD Phone: tel: fax: Referral ID Status Reason Start Date Expiration Date Visits Re quested Visits Authorized [id number] Closed 09/28/2022 03/27/2023 1 1 Encounter Details Date Type Department Care Team (Late st Contact Info) Description 09/28/2022 Outside Orders [facility] Central Scheduling [address] [place] [address] Marion Umana MD [facility] [address] [place] [id number] Acute renal failure, unspecified acute renal failure [...] Primary documented in this encounter Care Teams Artillery Or Naval Gunfire Observer Relationship Specialty Start Date End Date Reji Castro MD [address] [place] [address] PCP - General Adolescent Medicine 10/02/22 documented as of this encounter
--- OUTSIDE RECORDS SUMMARY | 2025-05-17 10:37 | XMS_ITS | Encounter Summary ---
Author Organization [employer] Address [address] [place] [address] Care Team Providers Care Mobile Designer Name Role Phone Reji Castro MD Primary Care Provider [phone] Encounter Details Date Type Department Care Team (Late st Contact Info) Description 08/21/2021 Transcribed Document [facility] [place] [facility] [place] [address] ProviderDelvin MD [address] [place] [address] Social History Tobacco Use Types Packs/Day Years [...] 15:08 EDT by MADINA LOVETT, JEREMIAH - Conduit CleanerBeam Worker Progress Note Discharge Arrangements : Patient Post-Acute [...] Rounds? : Yes MADINA LOVETT RN - Conduit Cleaner - 08/21/2021 15:08 EDT Narrative Progress Note Narrative Progress Note : RRS Low Boost 5 Day 08/29 Patient was admitted for staph infection and port removal. She had a new port placed on 08/19. Patient needs to remain inpatient until her coumadin is at therapeutic level per MD in [facility]. Patient will need IV rocephin until 09/08. CM faxed the order to Urszula with [facility]. CM also faxed order for home health to [facility] which the patient states she has used [...] is at a therapeutic level per at [facility]. Patient will need IV rocephin until 09/08. Patient will need home health and says she has used [facility] in the past. CM will refer her to them after final antibiotic order is placed. DCP: home with home health MADINA LOVETT RN - Conduit Cleaner - 08/20/21 13:35:46 RRS Low Boost 5 Day 05/26 Patient was admitted for staph infection and port removal. She had a new port done on . 08/19. Patient needs to remain inpatient after surgery until her coumadin is at a therapeutic level per at [facility]. Waiting on culture results for final abx plan. May need IV abx at home via port. Patient will need home health and lvies in [place]. [facility] home [facility] is a possibility. MADINA LOVETT RN - Conduit Cleaner - 08/19/21 15:40:22 RRS Low Boost 5 [...] will need home health and lives in [place]. [facility] home health is a possibility. CM will continue to follow. DCP: MADINA LOVETT, RN - Conduit Cleaner - 08/18/21 15:47:49 (late entry from 08/15-) [...] and send referrals as appropriate. JULIO STEWART, RN-Conduit Cleaner ED - 08/18/21 10:38:39 MADINA LOVETT, JEREMIAH - Conduit Cleaner - 08/21/2021 15:08 EDT documented in this encounter Plan of Treatment Not on file documented as of this encounter Visit Diagnoses Not on filedocumented in this encounter Care Teams Mobile Designer Relationship Specialty Start Date End Date Reji Castro MD [address] [place] [address] PCP - General Adolescent Medicine 10/02/22 documented as of this encounter
--- OUTSIDE RECORDS SUMMARY | 2025-05-17 10:37 | XMS_ITS | Encounter Summary ---
Author Organization [employer] Address [address] [place] [address] Care Team Providers Care Director Of Business Operations Name Role Phone Reji Castro MD Primary Care Provider [phone] Encounter Details Date Type Department Care Team (Late st Contact Info) Description 08/27/2021 Transcribed Document [facility] [place] Family Medicine [address] [place], [place] [id number] ProviderDelvin MD [address] [place] [address] Social History Tobacco Use Types Packs/Day Years [...] cefTRIAXone: 2 Gram, 100 mL/Hr, IV Piggyback, [id number] diphenhydrAMINE: 25 mg, Oral, Q6H, PRN: Itching [...] 2 g injection: 2 Gram, IV Piggyback, [id number], 0 Refill(s) cefdinir 300 mg oral capsule: [...] Oral, BID cefTRIAXone 2 Gram, IV Piggyback, M77IIre citalopram 20 mg tab 40 mg 2 [...] Bioprosthetic mitral valve replacement / SNOMED CT 149834690 / Confirmed Chronic kidney disease / SNOMED CT 5887178521 / Confirmed COPD - Chronic obstructive pulmonary disease / SNOMED CT 148513842 / Confirmed History of obstructive sleep apnea / IMO [id number] / Confirmed HLD - Hyperlipidemia / SNOMED CT 500763010 / Confirmed HTN - Hypertension / SNOMED CT 7237499761 / Confirmed Canceled: Atrial fibrillation / SNOMED CT 54006817, Active Problems (25) AIHA (autoimmune hemolytic anemia) [...] this encounter Care Teams Director Of Business Operations Relationship Specialty Start Date End Date Reji Castro MD [address] [place] [address] PCP - General Adolescent Medicine 10/02/22 documented as of this encounter
--- OUTSIDE RECORDS SUMMARY | 2025-05-17 10:37 | XMS_ITS | Encounter Summary ---
Author Organization [employer] Address [address] [facility] [place] [address] Care Team Providers Care Leadership Program Associate Name Role Phone Reji Castro MD Primary Care Provider [phone] Encounter Details Date Type Department Care Team (Late st Contact Info) Description 10/02/2022 Outside Orders [facility] Central Scheduling [address] [place] [address] Marion Umana MD [address] [facility] [address] [place], [place] [id number] Stage 3 chronic kidney disease, unspecified whether [...] Primary documented in this encounter Care Teams Leadership Program Associate Relationship Specialty Start Date End Date Reji Castro MD [address] [place] [address] PCP - General Adolescent Medicine 10/02/22 documented as of this encounter
--- OUTSIDE RECORDS SUMMARY | 2025-05-17 10:37 | XMS_ITS | Encounter Summary ---
Author Organization [employer] Address [address] [place] [address] Care Team Providers Care Train Starter Name Role Phone Reji Castro MD Primary Care Provider [phone] Encounter Details Date Type Department Care Team (Late st Contact Info) Description 08/27/2021 Transcribed Document [facility] [place] Family Medicine [address] [place] [address] ProviderDelvin MD [address] [place] [address] Social History Tobacco Use Types Packs/Day Years [...] On: 08/27/2021 14:36 EDT by SHAISTA WOLFF Clinical Instructor Final Discharge Planning Discharge Arrangements : Patient [...] Services (Related/SOC within 3 days)-06 SHAISTA WOLFF Clinical Instructor - 08/27/2021 14:36 EDT Final Narrative Note Final Narrative Note : Admission day 16, on room air to discharge home today, transport via s/o Jorge, who will assist with care. Home health for lab work and Port-a cath care via [facility] ([phone]/Radha Souza), IV Abx via [facility], they will deliver medication to patient's home this evening and patient was taught at bedside how to give herself the infusion, patient's follow up Coumadin Clinic (via [facility] [phone]/cBrett) appt set for 09/03/2021 at 0900. All other appointments in place via Virtual RN. Pt, RN aware and in agreement with plan. SHAISTA WOLFF Social Worker - 08/27/2021 14:36 EDT documented in this encounter Plan of Treatment Not on file documented as of this encounter Visit Diagnoses Not on filedocumented in this encounter Care Teams Train Starter Relationship Specialty Start Date End Date Reji Castro MD [address] [place] [address] PCP - General Adolescent Medicine 10/02/22 documented as of this encounter
--- OUTSIDE RECORDS SUMMARY | 2025-05-17 10:37 | XMS_ITS | Encounter Summary ---
Author Organization [employer] Address [address] [place] [address] Care Team Providers Care Tooth Polisher Name Role Phone Reji Castro MD Primary Care Provider [phone] Encounter Details Date Type Department Care Team (Late st Contact Info) Description 08/15/2021 Transcribed Document [facility] [place] [address] [place] [address] ProviderDelvin MD [address] [place] [address] Social History Tobacco Use Types Packs/Day Years [...] on filedocumented in this encounter Care Teams Tooth Polisher Relationship Specialty Start Date End Date Reji Castro MD [address] [place] [address] PCP - General Adolescent Medicine 10/02/22 documented as of this encounter
--- OUTSIDE RECORDS SUMMARY | 2025-05-17 10:37 | XMS_ITS | Encounter Summary ---
Author Organization [employer] Address [address] [place] [address] Care Team Providers Care Concrete Paver Name Role Phone Reji Castro MD Primary Care Provider [phone] Encounter Details Date Type Department Care Team (Late st Contact Info) Description 08/22/2021 Transcribed Document [facility] [place] [address] [place] [address] ProviderDelvin MD [address] [place] [address] Social History Tobacco Use Types Packs/Day Years [...] 15:27 EDT by MADINA LOVETT, JEREMIAH - Valve MechanicOracle Adf Consultant Progress Note Discharge Arrangements : Patient Post-Acute [...] Rounds? : Yes MADINA LOVETT RN - Valve Mechanic - 08/22/2021 15:27 EDT Narrative Progress Note [...] also faxed order for home health to [facility] which the patient states she has used before. Patient will probably not be ready for discharge until early next week per MDR. DCP: home with home health MADINA LOVETT RN - Valve Mechanic - 08/21/21 15:11:24 RRS Low Boost 5 Day 07/30 Patient was admitted for staph infection and port removal. She had a new port placed on 08/19. Patient needs to remain inpatient until her coumadin is at a therapeutic level per at [facility]. Patient will need IV rocephin until 09/08. Patient will need home health and says she has used [facility] in the past. CM will refer her to them after final antibiotic order is placed. DCP: home with home health MADINA LOVETT RN - Valve Mechanic - 08/20/21 13:35:46 RRS Low Boost 5 [...] will need home health and lvies in [place]. [facility] home health is a possibility. MADINA LOVETT RN - Valve Mechanic - 08/19/21 15:40:22 RRS Low Boost 5 [...] home health and lives in [place]. [facility] home health is a possibility. CM will continue to follow. DCP: MADINA LOVETT RN - Valve Mechanic - 08/18/21 15:47:49 (late entry from 08/15-) [...] will follow and send referrals as appropriate. JULOI STEWART, JEREMIAH-Valve Mechanic ED - 08/18/21 10:38:39 MADINA LOVETT RN - Valve Mechanic - 08/22/2021 15:27 EDT documented in this encounter Plan of Treatment Not on file documented as of this encounter Visit Diagnoses Not on filedocumented in this encounter Care Teams Concrete Paver Relationship Specialty Start Date End Date Reji Castro MD [address] [place] [address] PCP - General Adolescent Medicine 10/02/22 documented as of this encounter
--- OUTSIDE RECORDS SUMMARY | 2025-05-17 10:37 | XMS_ITS | Encounter Summary ---
Author Organization [employer] Address [address] [place] [address] Care Team Providers Care Venture Capitalist Name Role Phone Reji Castro MD Primary Care Provider [phone] Encounter Details Date Type Department Care Team (Late st Contact Info) Description 08/27/2021 Transcribed Document [facility] [place] Family Medicine [address] [place] [address] ProviderDelvin MD [address] [place] [address] Social History Tobacco Use Types Packs/Day Years [...] On: 08/27/2021 10:31 EDT by Sallie Solorzano RN-[employer] Stroke/Warfarin Instructions Stroke/TIA Discharge Ins : N/A Sallie Solorzano RN-[employer] - 08/27/2021 10:34 EDT Warfarin Discharge Ins : Open Sallie Solorzano RN-[employer] - 08/27/2021 10:31 EDT Warfarin Discharge Instructions Physician to Manage Warfarin : Sallie Tavarez RN-[employer] - 08/27/2021 10:34 EDT Indication for Warfarin Anticoagulation : Atrial fibrillation Warfarin Anticoagulation Disposition : Continuation of pre-hospital treatment Duration Warfarin Therapy, Alf Duration Warfarin Therapy, Alf : Yes Target INR : 2.5 - 3.5 Last INR Result : INR: 1.3 (High), Reference Range: (0.9 - 1.2), 08/20/2021 7:38 AM Notify Provider of Signs/Symptoms of : Significant bleeding, Clot Warfarin Dose/Frequency : 6 mg daily Sallie Solorzano RN-[employer] - 08/27/2021 10:31 EDT Education Topics: Anticoagulant [...] : Tod Sawyer to manage Sallie Solorzano RN-[employer] - 08/27/2021 10:34 EDT documented in this encounter Plan of Treatment Not on file documented as of this encounter Visit Diagnoses Not on filedocumented in this encounter Care Teams Venture Capitalist Relationship Specialty Start Date End Date Reji Castro MD [address] [place] [address] PCP - General Adolescent Medicine 10/02/22 documented as of this encounter
--- OUTSIDE RECORDS SUMMARY | 2025-05-17 10:37 | XMS_ITS | Encounter Summary ---
Author Organization [facility] [employer] Address [address] [place] [address] Care Team Providers Care Hand Stripper Name Role Phone Reji Castro MD Primary Care Provider [phone] Encounter Details Date Type Department Care Team (Late st Contact Info) Description 08/22/2021 Transcribed Document [facility] [place] Family Medicine [address] [place] [address] ProviderDelvin MD [facility] [place] [address] Social History Tobacco Use Types Packs/Day Years [...] cefTRIAXone: 2 Gram, 100 mL/Hr, IV Piggyback, [id number]. citalopram: 40 mg, Oral, Daily. diphenhydrAMINE: 25 [...] weekend. Thank you, Andrea Moraes, PharmD PGY1 [employer]ar[employer] Plug And Feather Driller Pager: [phone], Ext. [phone] documented in this encounter Plan of Treatment Not on file documented as of this encounter Visit Diagnoses Not on filedocumented in this encounter Care Teams Hand Stripper Relationship Specialty Start Date End Date Reji Castro MD [address] [place] [address] PCP - General Adolescent Medicine 10/02/22 documented as of this encounter
--- OUTSIDE RECORDS SUMMARY | 2025-05-17 10:37 | XMS_ITS | Encounter Summary ---
Author Organization [employer] Address [address] [place] [address] Care Team Providers Care Front End Technician Name Role Phone Reji Castro MD Primary Care Provider [phone] Encounter Details Date Type Department Care Team (Late st Contact Info) Description 08/27/2021 Transcribed Document [facility] [place] [address] [place] [address] ProviderDelvin MD [address] [place] [address] Social History Tobacco Use Types Packs/Day Years [...] On: 08/27/2021 12:50 EDT by STEVEN MENDES rn admissions Documentation Patient Disposition, General : Discharge Discharge To : Home with ambulatory/outpatient follow-up Education Comment : poc, meds, safety STEVEN MENDES RN - 08/27/2021 12:50 EDT Electronically signed by Lanny [facility] Conversion Housing Development Specialist Marisa at 03/09/2023 8:58 PM CDT documented in this encounter Plan of Treatment Not on file documented as of this encounter Visit Diagnoses Not on filedocumented in this encounter Care Teams Front End Technician Relationship Specialty Start Date End Date Reji Castro MD [address] [place] [id number] PCP - General Adolescent Medicine 10/02/22 documented as of this encounter
--- OUTSIDE RECORDS SUMMARY | 2025-05-17 10:37 | XMS_ITS | Encounter Summary ---
Author Organization [employer] Address [address] [place] [address] Care Team Providers Care Him Tech Name Role Phone Reji Castro MD Primary Care Provider [phone] Encounter Details Date Type Department Care Team (Late st Contact Info) Description 08/21/[address] [facility] [place] Family Medicine [facility] [place] [address] ProviderDelvin MD [facility] [place] [address] Social History Tobacco Use Types Packs/Day Years [...] her port could not be accessed. Her boiler reliner aspirated fluid from the port that was evidently purulent. I have not yet been able to track down that culture. After the aspiration she developed fever to 103, severe CHEUNG, myalgias and arthralgias. She was admitted to [facility]. She was in the hospital [...] antibiotics. On 08/08 she presented to a [facility] after she developed severe CHEUNG and myalgias w/o prominent fever. She was subsequently contacted and told to report to [facility] because she had + blood cutures concerning for an infected portacath +/- PVE. 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 Integumentary: Warm, [place]. Neurologic: Alert, Oriented, No focal deficits. Psychiatric: [...] on filedocumented in this encounter Care Teams Him Tech Relationship Specialty Start Date End Date Reji Castro MD [address] [place] [address] PCP - General Adolescent Medicine 10/02/22 documented as of this encounter
--- OUTSIDE RECORDS SUMMARY | 2025-05-17 10:37 | XMS_ITS | Encounter Summary ---
Author Organization [employer] Address [address] [place] [address] Care Team Providers Care Irrigation Equipment Remover Name Role Phone Reji Castro MD Primary Care Provider [phone] Encounter Details Date Type Department Care Team (Late st Contact Info) Description 08/22/2021 Transcribed Document [facility] [address] [place] [address] Loren Solorzano MD [address] [place] [address] [address] [place] [id number] Social History Tobacco Use Types Packs/Day Years [...] cefTRIAXone: 2 Gram, 100 mL/Hr, IV Piggyback, [id number] diphenhydrAMINE: 25 mg, Oral, Q6H, PRN: Itching [...] Oral, BID cefTRIAXone 2 Gram, IV Piggyback, O70TUyl citalopram 20 mg tab 40 mg 2 [...] Bioprosthetic mitral valve replacement / SNOMED CT 245961079 / Confirmed Chronic kidney disease / SNOMED CT 5039821855 / Confirmed COPD - Chronic obstructive pulmonary disease / SNOMED CT 126952243 / Confirmed History of obstructive sleep apnea / IMO [id number] / Confirmed HLD - Hyperlipidemia / SNOMED CT 975860613 / Confirmed HTN - Hypertension / SNOMED CT 7860139491 / Confirmed Canceled: Atrial fibrillation / SNOMED CT 14012897, Active Problems (25) AIHA (autoimmune hemolytic anemia) [...] Hold home meds SSI #Depression Celexa #Pain [place] 10 mg every 6 hours as needed CODE STATUS. Full code Dispo: Given patient with history of multiple transfusion we will keep patient in the hospital on heparin drip and Coumadin till INR therapeutic need IV abx, at least until 09/08. Discussed with correctional casework specialist. and pharmcy Time spent 25 minutes documented in this encounter Plan of Treatment Not on file documented as of this encounter Visit Diagnoses Not on filedocumented in this encounter Care Teams Irrigation Equipment Remover Relationship Specialty Start Date End Date Reij Castro MD [address] [place] [address] PCP - General Adolescent Medicine 10/02/22 documented as of this encounter
--- OUTSIDE RECORDS SUMMARY | 2025-05-17 10:37 | XMS_ITS | Encounter Summary ---
Author Organization [employer] Address [address] [place] [address] Care Team Providers Care President Ceo & Founder Name Role Phone Reji Castro MD Primary Care Provider + [phone] Encounter Details Date Type Department Care Team (Late st Contact Info) Description 08/22/2021 Transcribed Document [facility] [place] Family Medicine [address] [place], [place] [id number] ProviderDelvin MD [address] [place] [address] Social History Tobacco Use Types Packs/Day Years [...] cefTRIAXone: 2 Gram, 100 mL/Hr, IV Piggyback, S94RIrh diphenhydrAMINE: 25 mg, Oral, Q6H, PRN: Itching [...] Oral, BID cefTRIAXone 2 Gram, IV Piggyback, L78UXdo citalopram 20 mg tab 40 mg 2 [...] Bioprosthetic mitral valve replacement / SNOMED CT 227869927 / Confirmed Chronic kidney disease / SNOMED CT 0553171979 / Confirmed COPD - Chronic obstructive pulmonary disease / SNOMED CT 799482706 / Confirmed History of obstructive sleep apnea / IMO 63197577 / Confirmed HLD - Hyperlipidemia / SNOMED CT 542757510 / Confirmed HTN - Hypertension / SNOMED CT 4196043131 / Confirmed Canceled: Atrial fibrillation / SNOMED CT 88444898, Active Problems (25) AIHA (autoimmune hemolytic anemia) [...] adjust medications. Electronically signed by Lanny, [facility] Conversion Clamper Cerner at 03/09/2023 8:43 PM CDT documented in this encounter Plan of Treatment Not on file documented as of this encounter Visit Diagnoses Not on filedocumented in this encounter Care Teams President Ceo & Founder Relationship Specialty Start Date End Date Reji Castro MD [address] [place] [address] PCP - General Adolescent Medicine 10/02/22 documented as of this encounter
--- OUTSIDE RECORDS SUMMARY | 2025-05-17 10:37 | XMS_ITS | Encounter Summary ---
Author Organization [employer] Address [address] [place] [address] Care Team Providers Care Mixing Supervisor Name Role Phone Reji Castro MD Primary Care Provider [phone] Encounter Details Date Type Department Care Team (Late st Contact Info) Description 08/22/2021 Transcribed Document [facility] [place] Family Medicine [address] [place], [place] [id number] ProviderDelvin MD [address] [place] [address] Social History Tobacco Use Types Packs/Day Years [...] 08/22/2021 8:20 EDT by Lamar Sheppard Diet Account Services Representative Nutrition Assessment Nutrition Assessment Reason : Other: Lamar Gay Diet Account Services Representative - 08/22/2021 8:20 EDT Nutrition Recommendations Dietitian [...] reported. No nutrition dx at this time. certified medical technician to rescreen in 7-10 days. Lamar Sheppard, Diet Account Services Representative - 08/22/2021 12:04 EDT Electronically signed by Lanny [facility] Conversion Heritage Consultant Cerner at 03/09/2023 8:41 PM CDT documented in this encounter Plan of Treatment Not on file documented as of this encounter Visit Diagnoses Not on filedocumented in this encounter Care Teams Mixing Supervisor Relationship Specialty Start Date End Date Reji Castro MD [address] [place] [address] PCP - General Adolescent Medicine 10/02/22 documented as of this encounter
--- OUTSIDE RECORDS SUMMARY | 2025-05-17 10:37 | XMS_ITS | Clinical Summary ---
Author Organization [employer] Address [address] [place] [address] Care Team Providers Care Receiving Tank Operator Name Role Phone Reji Castro MD Primary Care Provider [phone] Allergies Active Allergy Reactions Criticality Noted Date [...] Date Yash rded Speak language other than Tuval[place] at home Not on file 12/10/2023 Want [...] 75+ series) [address] [place] [id number] Advance Directives For more information, please contact: [phone] Documents on File Type Date Recorded Patient Communications Manager Expl anation Advance Directives and Gato g Will 10/05/2022 8:36 AM Care Teams Receiving Tank Operator Relationship Specialty Start Date End Date Reji Castro MD [address] [place] [address] PCP - General Adolescent Medicine 10/02/22
--- OUTSIDE RECORDS SUMMARY | 2025-05-17 10:37 | XMS_ITS | Encounter Summary ---
Author Organization [employer] Address [address] [place] [address] Care Team Providers Care Hydraulic Miner Blasting Name Role Phone Reji Castro MD Primary Care Provider [phone] Encounter Details Date Type Department Care Team (Late st Contact Info) Description 08/11/2021 Transcribed Document [facility] [place] [facility] [address] ProviderDelvin MD [address] [place] [address] Social History Tobacco Use Types Packs/Day Years [...] you, Noy Garrett, PharmD PGY-1 Resident Pager #[phone] documented in this encounter Plan of Treatment Not on file documented as of this encounter Visit Diagnoses Not on filedocumented in this encounter Care Teams Hydraulic Miner Blasting Relationship Specialty Start Date End Date Reji Castro MD [address] [place] [address] PCP - General Adolescent Medicine 10/02/22 documented as of this encounter
--- OUTSIDE RECORDS SUMMARY | 2025-05-17 10:37 | XMS_ITS | Encounter Summary ---
Author Organization [employer] Address [address] [place] [address] Care Team Providers Care Promotions Manager Name Role Phone Reji Tovar MD Primary Care Provider [phone] Encounter Details Date Type Department Care Team (Late st Contact Info) Description 08/27/2021 Transcribed Document [facility] [place] Family Medicine [address] [place] [address] ProviderDelvin MD [address] [place] [address] Social History Tobacco Use Types Packs/Day Years [...] take to pcp f/u Depression Celexa Pain [place] 10 mg every 6 hours as needed Procedures SN - Proc - Procedure: Vascular Access Insertion (08/19/21 08:00:32)ATE OF PROCEDURE: 08/19/2021 SURGEON: Nena Holliday MD 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 PROCEDURE PERFORMED: Right IJ PowerPort placement. DESIGN PRINTING MACHINE SET UP OPERATOR: Cherri Ya. ANESTHESIA: Local MAC. FINDINGS: An 8-Frisian single lumen PowerPort was placed using a [...] and J-wire followed by passage of the 8-Frisian single-lumen catheter. Once again, fluoroscopy was used [...] taken to the Recovery in stable condition. /[id number] Nena Holliday MD JMH/AQ [1] Operative Report [...] back to her room in stable condition. /[id number] MD GERMAINE Pollard/TONYA / DOTTIE / MODL /[id number] Signature Line Electronically Signed on 08/14/2021 11:35 [...] past, CAD, mitral valve replacement presents to [facility] emergency department in [place] after being told by outside provider that [...] what doses. She was seen by our entry level civil engineer with no new findings, rec to f/u with her usual entry level civil engineer. Vital Signs T: 36.4 ??C TMIN: 36.4 [...] 2 g injection 2 Gram, IV Piggyback, [id number] Celexa 40 mg oral tablet 40 mg [...] -- Start: 08/19/21 9:34:00 EDT, 60 gm carbs:[id number] kori, Isolation: Standard Precautions, Instructions: Diabetic Diet Follow Up Labs/Studies Blood Gases (Current Encounter/Past 24 Hours) No Blood Gas Results Found (Past 24 Hours) Electrolytes(BMP) Results (Current Encounter/Past 24 Hours) Sodium Level 137 mmol/L 08/27/2021 05:09 Potassium Level 4.0 mmol/L 08/27/2021 05:09 Chloride Level 97 mmol/L LOW 08/27/2021 05:09 Carbon Dioxide Level 36 mmol/L UT 08/27/2021 05:09 Anion Gap 8 LOW 08/27/2021 05:09 Blood Urea Nitrogen 22 mg/dL 08/27/2021 05:09 Glucose Level 140 mg/dL UT 08/27/2021 05:09 Calcium Level 9.5 mg/dL 08/27/2021 05:09 Creatinine Level 1.40 mg/dL UT 08/27/2021 05:09 Cardiac Markers (Current Encounter/Past 24 [...] LOW 08/27/2021 05:09 Creatinine Level 1.40 mg/dL UT 08/27/2021 05:09 eGFR 47 mL/min/1.73m2 LOW 08/27/2021 05:09 Sodium Level 137 mmol/L 08/27/2021 05:09 Potassium Level 4.0 mmol/L 08/27/2021 05:09 Chloride Level 97 mmol/L LOW 08/27/2021 05:09 Carbon Dioxide Level 36 mmol/L UT 08/27/2021 05:09 Anion Gap 8 LOW 08/27/2021 05:09 Blood Urea Nitrogen 22 mg/dL 08/27/2021 05:09 Glucose Level 140 mg/dL UT 08/27/2021 05:09 Calcium Level 9.5 mg/dL 08/27/2021 05:09 Coagulation Results (Current Encounter/Past 24 Hours) PT 26.0 Second(s) UT 08/27/2021 05:04 INR 2.6 UT 08/27/2021 05:04 Creatinine Clearance (Current Encounter/Past 24 Hours) Creatinine Level 1.40 mg/dL UT 08/27/2021 08:46 Bun/Creatinine 15.7 08/27/2021 05:09 Estimated [...] 08/11/2021 20:36 EDT Electronically signed by Lanny [facility] Conversion Railway Signalling Engineer Cerner at 03/09/2023 8:54 PM CDT documented in this encounter Plan of Treatment Not on file documented as of this encounter Visit Diagnoses Not on filedocumented in this encounter Care Teams Promotions Manager Relationship Specialty Start Date End Date Reji Tovar MD [address] [place] [address] PCP - General Adolescent Medicine 10/02/22 documented as of this encounter
--- OUTSIDE RECORDS SUMMARY | 2025-05-17 10:37 | XMS_ITS | Encounter Summary ---
Author Organization [employer] Address [address] [place] [address] Care Team Providers Care Practice Lead Name Role Phone Reji Castro MD Primary Care Provider [phone] Encounter Details Date Type Department Care Team (Late st Contact Info) Description 08/22/2021 Transcribed Document [facility] [place] [address] [place] [address] ProviderDelvin MD [facility] [place] [address] Social History Tobacco Use Types Packs/Day Years Used Date Smoking Tobacco: Never Assessed Comments Unknown Sex and Gender Information Value Date Recorded Sex Assigned at Not on file Legal Sex Female 4:32 PM CDT Gender Identity Not on file Sexual Orientation Not on file documented as of this encounter Miscellaneous Notes * Cerner Conversion Note - Historical ProviderMD - 08/22/2021 2:00 AM CDT Industrial Training Specialist Details Entered On: 08/22/2021 4:12 EDT Performed [...] on filedocumented in this encounter Care Teams Practice Lead Relationship Specialty Start Date End Date Reji Castro MD [address] [place] [id number] PCP - General Adolescent Medicine 10/02/22 documented as of this encounter
--- OUTSIDE RECORDS SUMMARY | 2025-05-17 10:37 | XMS_ITS | Encounter Summary ---
Author Organization Healthcare Address [address] [place] [address] Care Team Providers Care Assembler Watch Train Name Role Phone Anna Marie Savage MD Primary Care Provider [phone] Reji Castro MD Primary Care Provider [phone] Encounter Details Date Type Department Care Team (Late st Contact Info) Description 07/09/2023 Orders Only External Location [address] [place] [address] Karen Benson MD [address] [place] [address] Social History Tobacco Use Types Packs/Day Years [...] documented as of this encounter Care Teams Assembler Watch Train Relationship Specialty Start Date End Date Anna Marie Savage MD [address] [place], [place] [address] PCP - General 04/04/21 12/07/23 Reji Castro MD [address] [place] [address] [address] [place] [address] PCP - General Internal Medicine 12/08/23 documented as of this encounter
--- OUTSIDE RECORDS SUMMARY | 2025-05-17 10:37 | XMS_ITS | Encounter Summary ---
Author Organization [employer] Address [address] [place] [address] Care Team Providers Care Nuclear Design Engineer Name Role Phone Reji Castro MD Primary Care Provider [phone] Encounter Details Date Type Department Care Team (Late st Contact Info) Description 08/22/2021 Transcribed Document [facility] [place] Family Medicine [address] [place] [address] ProviderDelvin MD [address] [place] [address] Social History Tobacco Use Types Packs/Day Years [...] filedocumented in this encounter Care Teams Nuclear Design Engineer Relationship Specialty Start Date End Date Reji Castro MD [address] [place] [address] PCP - General Adolescent Medicine 10/02/22 documented as of this encounter
--- OUTSIDE RECORDS SUMMARY | 2025-05-17 10:38 | XMS_ITS | Encounter Summary ---
Author Organization Healthcare Address [address] [place] [address] Care Team Providers Care Bookkeeping Machine Mechanic Name Role Phone Reji Castro MD Primary Care Provider [phone] Encounter Details Date Type Department Care Team (Late st Contact Info) Description 05/07/2025 Orders Only External Location [address] [place] [address] Provider, External Social History Tobacco Use Types [...] place to sleep or slept in a [place] [facility] care facility (including now)? No 11/19/2023 Utilities Answer Date [...] documented as of this encounter Care Teams Bookkeeping Machine Mechanic Relationship Specialty Start Date End Date Reji Castro MD [address] [place] [address] PCP - General Internal Medicine 12/08/23 documented as of this encounter
--- OUTSIDE RECORDS SUMMARY | 2025-05-17 10:38 | XMS_ITS | Encounter Summary ---
Author Organization [facility] [employer] Address [address] [place] [address] Care Team Providers Care Honey Processor Name Role Phone Reji Castro MD Primary Care Provider [phone] Encounter Details Date Type Department Care Team (Late st Contact Info) Description 08/18/2021 Transcribed Document [facility] [place] Family Medicine [place] [address] ProviderDelvin MD [address] [place] [address] Social History Tobacco Use Types Packs/Day Years [...] 15:44 EDT by MADINA LOVETT, RN - Near Eastern Archaeology LecturerMexican Food Maker Progress Note Discharge Arrangements : Patient Post-Acute [...] Rounds? : Yes MADINA LOVETT, RN - Near Eastern Archaeology Lecturer - 08/18/2021 15:44 EDT Narrative Progress Note [...] will need home health and lives in [place]. [facility] home health is a possibility. CM will [...] and send referrals as appropriate. JULIO STEWART, RN-Near Eastern Archaeology Lecturer ED - 08/18/21 10:38:39 MADINA LOVETT, JEREMIAH - Near Eastern Archaeology Lecturer - 08/18/2021 15:44 EDT documented in this encounter Plan of Treatment Not on file documented as of this encounter Visit Diagnoses Not on filedocumented in this encounter Care Teams Honey Processor Relationship Specialty Start Date End Date Reji Castro MD [address] [place] [address] PCP - General Adolescent Medicine 10/02/22 documented as of this encounter
--- OUTSIDE RECORDS SUMMARY | 2025-05-17 10:38 | XMS_ITS | Encounter Summary ---
Author Organization [employer] Address [address] [place] [address] Care Team Providers Care Pin Drafter Name Role Phone Reji Castro MD Primary Care Provider [phone] Encounter Details Date Type Department Care Team (Late st Contact Info) Description 08/23/2021 Transcribed Document [facility] [place] Family Medicine [address] [place], [place] [id number] ProviderDelvin MD [address] [place] [address] Social History Tobacco Use Types Packs/Day Years [...] cefTRIAXone: 2 Gram, 100 mL/Hr, IV Piggyback, R45XXtf diphenhydrAMINE: 25 mg, Oral, Q6H, PRN: Itching [...] Oral, BID cefTRIAXone 2 Gram, IV Piggyback, P47NUez citalopram 20 mg tab 40 mg 2 [...] Bioprosthetic mitral valve replacement / SNOMED CT 110455983 / Confirmed Chronic kidney disease / SNOMED CT 4080689364 / Confirmed COPD - Chronic obstructive pulmonary disease / SNOMED CT 229934052 / Confirmed History of obstructive sleep apnea / IMO 87501594 / Confirmed HLD - Hyperlipidemia / SNOMED CT 025067808 / Confirmed HTN - Hypertension / SNOMED CT 6865964761 / Confirmed Canceled: Atrial fibrillation / SNOMED CT 17432750, Active Problems (25) AIHA (autoimmune hemolytic anemia) [...] Monitor GFR adjust medications. Electronically signed by [facility] Conversion Marketing Manager Cerner at 03/09/2023 8:48 PM CDT documented in this encounter Plan of Treatment Not on file documented as of this encounter Visit Diagnoses Not on filedocumented in this encounter Care Teams Pin Drafter Relationship Specialty Start Date End Date Reji Castro MD [address] [place] [address] PCP - General Adolescent Medicine 10/02/22 documented as of this encounter
--- OUTSIDE RECORDS SUMMARY | 2025-05-17 10:38 | XMS_ITS | Encounter Summary ---
Author Organization [employer] Address [address] [place] [address] Care Team Providers Care Peat Shredder Tender Name Role Phone Reji Castro MD Primary Care Provider [phone] Encounter Details Date Type Department Care Team (Late st Contact Info) Description 08/23/2021 Transcribed Document [facility] [place] Family Medicine [address] [place] [address] ProviderDelvin MD [address] [place] [address] Social History Tobacco Use Types Packs/Day Years [...] 08/23/2021 18:47 EDT Electronically signed by Lanny [facility] Conversion Ceramic Research Engineer Cerner at 03/09/2023 8:57 PM CDT documented in this encounter Plan of Treatment Not on file documented as of this encounter Visit Diagnoses Not on filedocumented in this encounter Care Teams Peat Shredder Tender Relationship Specialty Start Date End Date Reji Castro MD [address] [place] [address] PCP - General Adolescent Medicine 10/02/22 documented as of this encounter
--- OUTSIDE RECORDS SUMMARY | 2025-05-17 10:38 | XMS_ITS | Encounter Summary ---
Author Organization [employer] In [employer] Address [address] [place] [address] Care Team Providers Care Branch Rental Manager Name Role Phone Reji Castro MD Primary Care Provider [phone] Encounter Details Date Type Department Care Team (Late st Contact Info) Description 08/13/2021 Transcribed Document [facility] [facility] [place] [address] [place] [address] ProviderDelvin MD [address] [place] [address] Social History Tobacco Use Types Packs/Day Years [...] Author: CHELI BEASLEY MD-CAR Basic Information Primary Park Maintenance Technician: Dr. Delmar Geronimo Post Adoption Coordinator: MD Nestor Subjective NAD Health Status Current [...] mL 700 mg 14 mL, IV Piggyback, L67EOos DAPTOmycin + NaCl 0.9% 50 mL 700 mg 14 mL, IV Piggyback, U52GEaf famotidine 20 mg tab 20 mg 1 [...] of motion, Normal strength. Integumentary: Warm, Dry, [place]. Neurologic: Alert, Oriented. Psychiatric: Cooperative, Appropriate mood & affect. Results Review AUG 13 05:19 136 103 H 50 / 102 4.5 30 H 1.60 \ AUG 13 05:19 \ L 8.5 / 5.5 197 / L 28.7 \ Cardiac Markers (Current Encounter/Past 24 Hours) CK 87 Units/Liter 08/13/2021 05:53 ProBNP 587 pg/mL HI 08/13/2021 05:58 Radiology Results (Last 48 hours) [id number] -- 08/11/2021 21:21 CR Chest 1 Vw [...] mechan MV, 4+ TR, no vegetation. Admitted [facility] 07/12, Negative CHUCHO, TTE for vegetation that [...] mechanical causes of hemolysis. Obtain records from [facility]. Check haptoglobin, LDH, reticulocyte count. Continue other current CV meds. Electronically signed by Lanny [facility] Conversion Fbi Profiler Cerner at 03/09/2023 8:50 PM CDT documented in this encounter Plan of Treatment Not on file documented as of this encounter Visit Diagnoses Not on filedocumented in this encounter Care Teams Branch Rental Manager Relationship Specialty Start Date End Date Reji Castro MD [address] [place] [address] PCP - General Adolescent Medicine 10/02/22 documented as of this encounter
--- OUTSIDE RECORDS SUMMARY | 2025-05-17 10:38 | XMS_ITS | Encounter Summary ---
Author Organization [employer] Address [address] [place] [address] Care Team Providers Care Retail Sales Lead Name Role Phone Reji Castro MD Primary Care Provider [phone] Encounter Details Date Type Department Care Team (Late st Contact Info) Description 08/24/2021 Transcribed Document [facility] [place] Family Medicine [address] [place] [address] ProviderDelvin MD [address] [place] [address] Social History Tobacco Use Types Packs/Day Years Used Date Smoking Tobacco: Never Assessed Comments Unknown Sex and Gender Information Value Date Recorded Sex Assigned at Not on file Legal Sex Female 4:32 PM CDT Gender Identity Not on file Sexual Orientation Not on file documented as of this encounter Miscellaneous Notes * Cerner Conversion Note - Delvin ProviderMD - 08/24/2021 2:00 AM CDT Channeling Machine Runner Details Entered On: 08/24/2021 0:53 EDT Performed [...] on filedocumented in this encounter Care Teams Retail Sales Lead Relationship Specialty Start Date End Date Reji Castro MD [address] [place] [id number] PCP - General Adolescent Medicine 10/02/22 documented as of this encounter
--- OUTSIDE RECORDS SUMMARY | 2025-05-17 10:38 | XMS_ITS | Encounter Summary ---
Author Organization [employer] Address [address] [place] [address] Care Team Providers Care Commission Sales Associate Name Role Phone Reji Castro MD Primary Care Provider [phone] Encounter Details Date Type Department Care Team (Late st Contact Info) Description 08/23/2021 Transcribed Document [facility] [place] [place] Family Medicine [address] [place] [address] ProviderDelvin MD [address] [place] [address] Social History Tobacco Use Types Packs/Day Years [...] On: 08/23/2021 5:00 EDT by Cecilia Lai, Maintenance Painter Apprentice-Student Nurse Chart Check Powerplans Initiated/Discontinued as Appropriate : Yes All Active Orders Reviewed : Yes Cecilia Lai Maintenance Painter Apprentice-Student Nurse - 08/23/2021 5:19 EDT documented in this encounter Plan of Treatment Not on file documented as of this encounter Visit Diagnoses Not on filedocumented in this encounter Care Teams Commission Sales Associate Relationship Specialty Start Date End Date Reji Castro MD [address] [place] [id number] PCP - General Adolescent Medicine 10/02/22 documented as of this encounter
--- OUTSIDE RECORDS SUMMARY | 2025-05-17 10:38 | XMS_ITS | Encounter Summary ---
Author Organization [employer] Address [address] [place] [address] Care Team Providers Care Special Procedure Technologist Name Role Phone Reji Castro MD Primary Care Provider + [phone] Encounter Details Date Type Department Care Team (Late st Contact Info) Description 08/13/2021 Transcribed Document [facility] [place] Family Medicine [address] [place] [address] ProviderDelvin MD [address] [place] [address] Social History Tobacco Use Types Packs/Day Years [...] filedocumented in this encounter Care Teams Special Procedure Technologist Relationship Specialty Start Date End Date Reji Castro MD [address] [place] [id number] PCP - General Adolescent Medicine 10/02/22 documented as of this encounter
--- OUTSIDE RECORDS SUMMARY | 2025-05-17 10:38 | XMS_ITS | Encounter Summary ---
Author Organization [employer] Address [address] [place] [address] Care Team Providers Care Junior Net Developer Name Role Phone Reji Castro MD Primary Care Provider + [phone] Encounter Details Date Type Department Care Team (Late st Contact Info) Description 08/18/2021 Transcribed Document [facility] [place] Family Medicine [facility] [place] [address] ProviderDelvin MD [facility] [place] [address] Social History Tobacco Use Types Packs/Day Years [...] her port could not be accessed. Her planning consultant aspirated fluid from the port that was [...] antibiotics. On 08/08 she presented to a [facility] after she developed severe CHEUNG and myalgias w/o prominent fever. She was subsequently contacted and told to report to [facility] because she had + blood cutures concerning for an infected portacath +/- PVE. 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 Integumentary: Warm, [place]. Neurologic: Alert, Oriented, No focal deficits. Psychiatric: [...] length with patient Electronically signed by Lanny [facility] Conversion Mattress Specialist Cerner at 03/09/2023 8:49 PM CDT documented in this encounter Plan of Treatment Not on file documented as of this encounter Visit Diagnoses Not on filedocumented in this encounter Care Teams Junior Net Developer Relationship Specialty Start Date End Date Reji Castro MD [address] [place] [id number] PCP - General Adolescent Medicine 10/02/22 documented as of this encounter
--- OUTSIDE RECORDS SUMMARY | 2025-05-17 10:38 | XMS_ITS | Encounter Summary ---
Author Organization [employer] Address [address] [place] [address] Care Team Providers Care Supercharger Repair Supervisor Name Role Phone Reji Castro MD Primary Care Provider + [phone] Encounter Details Date Type Department Care Team (Late st Contact Info) Description 08/13/2021 Transcribed Document [facility] [place] Medicine [facility] [place] [address] ProviderDelvin MD [facility] [place] [address] Social History Tobacco Use Types Packs/Day Years [...] her port could not be accessed. Her ply splicer aspirated fluid from the port that was evidently purulent. I have not yet been able to track down that culture. After the aspiration she developed fever to 103, severe CHEUNG, myalgias and arthralgias. She was admitted to [facility]. She was in the hospital for [...] On 08/08 she presented to a [facility] after she developed severe CHEUNG and myalgias w/o prominent fever. She was subsequently contacted and told to report to [facility] because she had + blood cutures concerning for an infected portacath +/- PVE. 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 Integumentary: Warm, [place]. Neurologic: Alert, Oriented, No focal deficits. Psychiatric: [...] recommend therapy to 09/22 Electronically signed by [facility] Conversion Signal Helper Cerner at 03/09/2023 8:46 PM CDT documented in this encounter Plan of Treatment Not on file documented as of this encounter Visit Diagnoses Not on filedocumented in this encounter Care Teams Supercharger Repair Supervisor Relationship Specialty Start Date End Date Reji Castro MD [address] [place] [id number] PCP - General Adolescent Medicine 10/02/22 documented as of this encounter
--- OUTSIDE RECORDS SUMMARY | 2025-05-17 10:38 | XMS_ITS | Encounter Summary ---
Author Organization [employer] Address [address] [place] [address] Care Team Providers Care Collections Manager Name Role Phone Reji Castro MD Primary Care Provider + [phone] Encounter Details Date Type Department Care Team (Late st Contact Info) Description 08/17/2021 Transcribed Document [facility] [place] Family Medicine [address] [place] [address] ProviderDelvin MD [address] [place] [address] Social History Tobacco Use Types Packs/Day Years [...] 08/17/2021 6:06 EDT Electronically signed by Lanny [facility] Conversion Passenger Car Inspector Marisa at 03/09/2023 8:53 PM CDT documented in this encounter Plan of Treatment Not on file documented as of this encounter Visit Diagnoses Not on filedocumented in this encounter Care Teams Collections Manager Relationship Specialty Start Date End Date Reji Castro MD [address] [place] [address] PCP - General Adolescent Medicine 10/02/22 documented as of this encounter
--- OUTSIDE RECORDS SUMMARY | 2025-05-17 10:38 | XMS_ITS | Encounter Summary ---
Author Organization [employer] Address [address] [place] [address] Care Team Providers Care Senior Production Supervisor Name Role Phone Reji Castro MD Primary Care Provider + [phone] Encounter Details Date Type Department Care Team (Late st Contact Info) Description 08/13/2021 Transcribed Document [facility] [place] [facility] [place] [address] ProviderDelvin MD [address] [place] [address] Social History Tobacco Use Types Packs/Day Years [...] On: 08/13/2021 9:56 EDT by Reina Tian, RAIL SIGNAL DESIGNER Phone Call for Consults Consult Phone Call/Page Attempt : First call Consult Reason : paula cath infection, needing removal Physician Requested for Consult : Elieser VERNON MD-TATYANA Date and Time Call Returned : 08/14/2021 10:08 EDT Reina Tian, RAIL SIGNAL DESIGNER - 08/13/2021 10:09 EDT documented in this encounter Plan of Treatment Not on file documented as of this encounter Visit Diagnoses Not on filedocumented in this encounter Care Teams Senior Production Supervisor Relationship Specialty Start Date End Date Reji Castro MD [address] [place] [id number] PCP - General Adolescent Medicine 10/02/22 documented as of this encounter
--- OUTSIDE RECORDS SUMMARY | 2025-05-17 10:38 | XMS_ITS | Encounter Summary ---
Author Organization [employer] Address [address] [place] [address] Care Team Providers Care Shop Superintendent Name Role Phone Reji Castro MD Primary Care Provider [phone] Encounter Details Date Type Department Care Team (Late st Contact Info) Description 08/23/2021 Transcribed Document [facility] [place] Family Medicine [address] [place] [address] ProviderDelvin MD [address] [place] [address] Social History Tobacco Use Types Packs/Day Years Used Date Smoking Tobacco: Never Assessed Comments Unknown Sex and Gender Information Value Date Recorded Sex Assigned at Not on file Legal Sex Female 4:32 PM CDT Gender Identity Not on file Sexual Orientation Not on file documented as of this encounter Miscellaneous Notes * Cerner Conversion Note - Historical ProviderMD - 08/23/2021 2:00 AM CDT Public Health Training Assistant Details Entered On: 08/23/2021 2:15 EDT Performed On: 08/23/2021 2:00 EDT by Cecilia Lai, New Client Banking Services Clerk-Student Nurse Order Details Transport Mode Order Detail : Wheelchair Isolation Precautions Order Detail : Standard Precautions Order Detail : 0 IV Order Detail : 1 Oxygen Order Detail : 0 Lift/Transfer : Independent Central Line Order Detail : Yes Room Service : Appropriate Arterial Line : No Patient Needs Meds Crushed/Liquid : No Cecilia Lai, New Client Banking Services Clerk-Student Nurse - 08/23/2021 2:15 EDT documented in this encounter Plan of Treatment Not on file documented as of this encounter Visit Diagnoses Not on filedocumented in this encounter Care Teams Shop Superintendent Relationship Specialty Start Date End Date Reji Castro MD [address] [place] [id number] PCP - General Adolescent Medicine 10/02/22 documented as of this encounter
--- OUTSIDE RECORDS SUMMARY | 2025-05-17 10:38 | XMS_ITS | Encounter Summary ---
Author Organization [employer] Address [address] [place] [address] Care Team Providers Care Welding Machine Operator Name Role Phone Reji Castro MD Primary Care Provider [phone] Encounter Details Date Type Department Care Team (Late st Contact Info) Description 08/13/2021 Transcribed Document [facility] [place] [address] [place] [address] ProviderDelvin MD [address] [place] [address] Social History Tobacco Use Types Packs/Day Years [...] on filedocumented in this encounter Care Teams Welding Machine Operator Relationship Specialty Start Date End Date Reji Castro MD [address] [place] [id number] PCP - General Adolescent Medicine 10/02/22 documented as of this encounter
--- OUTSIDE RECORDS SUMMARY | 2025-05-17 10:38 | XMS_ITS | Encounter Summary ---
Author Organization [employer] Address [address] [place] [address] Care Team Providers Care Receptionist Doctor'S Office Name Role Phone Reji Castro MD Primary Care Provider [phone] Encounter Details Date Type Department Care Team (Late st Contact Info) Description 08/18/[address] [facility] [place] Family Medicine [facility] [place] [address] ProviderDelvin MD [facility] [place] [address] Social History Tobacco Use Types Packs/Day Years [...] questions. Thank you, Andrea Moraes, PharmD PGY1 Preschool Teacher Pager: [phone] Ext. [phone] documented in this encounter Plan of Treatment Not on file documented as of this encounter Visit Diagnoses Not on filedocumented in this encounter Care Teams Receptionist Doctor'S Office Relationship Specialty Start Date End Date Reji Castro MD [address] [place] [address] PCP - General Adolescent Medicine 10/02/22 documented as of this encounter
--- OUTSIDE RECORDS SUMMARY | 2025-05-17 10:38 | XMS_ITS | Encounter Summary ---
Author Organization [facility] Address [address] [place] [address] Care Team Providers Care Bundle Wrapper Name Role Phone Reji Castro MD Primary Care Provider [phone] Encounter Details Date Type Department Care Team (Late st Contact Info) Description 05/07/2025 Orders Only External Location [address] [place] [address] Provider, External Social History Tobacco Use Types [...] documented as of this encounter Care Teams Bundle Wrapper Relationship Specialty Start Date End Date Reji Castro MD [address] [place] [id number] PCP - General Internal Medicine 12/08/23 documented as of this encounter
--- OUTSIDE RECORDS SUMMARY | 2025-05-17 10:38 | XMS_ITS | Encounter Summary ---
Author Organization [employer] Address [address] [place] [address] Care Team Providers Care Analyst Competitive Intelligence Name Role Phone Reji Castro MD Primary Care Provider [phone] Encounter Details Date Type Department Care Team (Late st Contact Info) Description 08/17/2021 Transcribed Document [facility] [place] [facility] [place] [address] ProviderDelvin MD [address] [place] [address] Social History Tobacco Use Types Packs/Day Years [...] Warfarin HPI: 56 y/o F presenting to [facility] with history of COPD, atrial fibrillation, [...] mg, 14 mL, 128 mL/Hr, IV Piggyback, [id number]. diphenhydrAMINE: 50 mg, IV Push, On-CALL, PRN: [...] questions. Thank you, Andrea Moraes, PharmD PGY1 Tie Fastener Pager: [phone], Ext. [phone] documented in this encounter Plan of Treatment Not on file documented as of this encounter Visit Diagnoses Not on filedocumented in this encounter Care Teams Analyst Competitive Intelligence Relationship Specialty Start Date End Date Reji Castro MD [address] [place] [address] PCP - General Adolescent Medicine 10/02/22 documented as of this encounter
--- OUTSIDE RECORDS SUMMARY | 2025-05-17 10:38 | XMS_ITS | Encounter Summary ---
Author Organization [employer] Address [address] [place] [address] Care Team Providers Care Haul Truck Driver Name Role Phone Reji Castro MD Primary Care Provider [phone] Encounter Details Date Type Department Care Team (Late st Contact Info) Description 08/13/2021 Transcribed Document [facility] [place] [facility] [address] ProviderDelvin MD [facility] [place] [address] Social History Tobacco Use Types Packs/Day Years Used Date Smoking Tobacco: Never Assessed Comments Unknown Sex and Gender Information Value Date Recorded Sex Assigned at Not on file Legal Sex Female 4:32 PM CDT Gender Identity Not on file Sexual Orientation Not on file documented as of this encounter Miscellaneous Notes * Cerner Conversion Note - Delvin ProviderMD - 08/13/2021 2:00 AM CDT Hot Top Liner Details Entered On: 08/13/2021 6:35 EDT Performed [...] on filedocumented in this encounter Care Teams Haul Truck Driver Relationship Specialty Start Date End Date Reji Castro MD [address] [place] [id number] PCP - General Adolescent Medicine 10/02/22 documented as of this encounter
--- OUTSIDE RECORDS SUMMARY | 2025-05-17 10:38 | XMS_ITS | Encounter Summary ---
Author Organization [employer] Address [address] [place] [address] Care Team Providers Care Director Translation Name Role Phone Reji Castro MD Primary Care Provider [phone] Encounter Details Date Type Department Care Team (Late st Contact Info) Description 08/18/2021 Transcribed Document [facility] [place] [address] [place] [address] ProviderDelvin MD [address] [place] [address] Social History Tobacco Use Types Packs/Day Years [...] Spiritual Care Intervention/Comment/Summary Points : PreSurgery visit Presybeterian Preference : Buddhist FAIZA ARIZA - 09/02/2021 12:43 EDT documented in this encounter Plan of Treatment Not on file documented as of this encounter Visit Diagnoses Not on filedocumented in this encounter Care Teams Director Translation Relationship Specialty Start Date End Date Reji Castro MD [address] [place] [address] PCP - General Adolescent Medicine 10/02/22 documented as of this encounter
--- OUTSIDE RECORDS SUMMARY | 2025-05-17 10:38 | XMS_ITS | Encounter Summary ---
Author Organization [employer] Address [address] [place] [address] Care Team Providers Care Rail Walker Name Role Phone Reji Tovar MD Primary Care Provider + [phone] Encounter Details Date Type Department Care Team (Late st Contact Info) Description 08/27/2021 Transcribed Document [facility] [place] Family Medicine [address] [place] [address] ProviderDelvin MD [address] [place], [place] [id number] Social History Tobacco Use Types Packs/Day Years [...] Celestin MD - 08/27/2021 1:31 PM CDT [facility] [place] [address] IRINA TAMAYO :1965 Visit Time:08/11/2021 Your Visit Summary Your Care Team Admitting Physician - VINCE BELLO MD Attending Physician - FAIZA YOUSSEF DO-GAUDENCIO Primary Care Physician - DEREK ROBISON DR Referring Physician - VINCE BELLO MD Your Diagnosis Bacteremia Acute kidney injury superimposed on chronic kidney disease, Acute kidney injury CHF with unknown LVEF Atrial fibrillation Diabetes mellitus type II shelter current use of anticoagulant At risk [...] contact Dr. Sawyer's office directly. Where: [address] [facility] [address] [place] [address]- Follow Up with LISA RICKETTS When 09/03/2021 10:45 AM EDT Comments Hospital follow up appointment has been made. Please arrive 15 minutes early to the appointment. If you need to reschedule, please contact [facility] directly. Where: [address] [facility] [address] [place] [address]- Business (1) Follow Up with NENA PEARSON MD-[facility] When Within 1 week Comments [facility] will contact you with appointment date and time. Where: [address] [facility] [address] [place] [address]- Follow Up with REJI TOVAR (REF)MD-[facility] When Within 5 to 7 days Comments [facility] will contact you with appointment date and time. Where: [address] [place] [address]- Follow Up with JERRELL GONZALEZ When Within 2 weeks Comments The [facility] will contact you with appointment date and time. Where: Warfarin Instructions Indication for Warfarin Anticoagulation: Atrial fibrillation Indication for Warfarin Anticoagulation: Atrial fibrillation Warfarin Anticoagulation Disposition: Continuation of pre-hospital treatment Warfarin Anticoagulation Disposition: Continuation of pre-hospital treatment Duration Warfarin Therapy, Penitentiary: Yes Target INR: 2.5 - 3.5 Physician [...] 25mg daily Pickup at [facility] spironolactone (spironolactone 25 mg oral tablet) 1 Tablet(s) Oral Every Day Please note: Dose REDUCTION to 1 tablet daily warfarin (Coumadin 4 mg oral tablet) 2 Tablet(s) Oral Every Day Please note: Dose INCREASE Pickup at [facility] acetaminophen-oxyCODONE (Percocet 10/ 325 oral [...] Every Day Pharmacy Information [facility]: [address] [place] [address] [phone] [phone] Take your medications faithfully. Do NOT skip [...] these instructions at home: Medicines ??? Take krwz-mod-dxflodc and prescription medicines only as told by [...] and water are not available, use hand project construction manager. ??? You should wash your hands: [...] care provider. ??? Practice good oral hygiene. [place] your teeth two times a day, and [...] provider. Document Revised: 03/29/2020 Document Reviewed: 03/29/2020 ElseStatzup Patient Education ?? 2020 [employer] Warfarin Coagulopathy Warfarin coagulopathy refers to bleeding [...] stopping any new medicines. Many prescription and elvz-blv-mbanuyn medicines can interfere with warfarin. This includes jspm-rhn-osomudt vitamins, dietary supplements, herbal medicines, and pain [...] that you work with a diet and payroll specialist (dietitian). ??? Vitamin K makes warfarin [...] Preventing bleeding and injury ??? Some common qgzc-fnq-pqnacxq medicines and supplements may increase the risk [...] diet. ??? You start or stop any hptj-rsc-zxjtdlb medicine, prescription medicine, or dietary supplement. ??? [...] Reviewed: 01/26/2018 Elsevier Patient Education ?? 2020 [employer] Inc. Vitamin K Foods and Warfarin Warfarin [...] before making changes. ??? Work with a payroll specialist (dietitian) to develop a meal plan that works best for you. What foods are high in vitamin K? Foods that are high in vitamin K contain more than 100 mcg (micrograms) per serving. These include: ??? Broccoli (cooked from fresh) ? cup (78 g) has 110 mcg. ??? [place] sprouts (cooked from fresh) ? cup (78 [...] cup (90 g) has 444 mcg. ??? French chard (cooked from fresh) ? cup (88 [...] cup (54 g) has 8 mcg. ??? [place] with peel (raw) ? cup (52 g) has 9 mcg. ??? Grapes ? cup (76 g) has 12 mcg. ??? [place] ??? 1 medium (207 g) has 9 [...] Reviewed: 08/27/2020 Elsevier Patient Education ?? 2020 [employer] Inc. Implanted Port Home Guide An implanted [...] implanted port has two main parts: ??? [place]. The reservoir is the part where a [...] water are not available, use alcohol-based hand project construction manager. ? Change your dressing as told [...] provider. Document Revised: 03/01/2020 Document Reviewed: 12/11/2017 [employer]ibb Patient Education ?? 2020 [employer]. Acute Kidney Injury, Adult Acute kidney [...] these instructions at home: Medicines ??? Take wfus-ajk-qpvwlmi and prescription medicines only as told by [...] important. Where to find more information ??? [place] [employer] of Kidney Patients: www.aakp.org ??? National Kidney Foundation: www.kidney.org ??? [place] [employer]: www.akfinc.org ??? [employer] [...] provider. Document Revised: 09/17/2020 Document Reviewed: 09/17/2020 [employer]ibb Patient Education ?? 2020 [employer] Inc[employer] Chronic Kidney Disease, Adult Chronic kidney disease [...] these instructions at home: Medicines ??? Take bfez-yej-whyvzcd and prescription medicines only as told by [...] provider. Document Revised: 10/21/2018 Document Reviewed: 12/13/2017 ElseStatzup Patient Education ?? 2020 [employer]. Implanted Port Home Guide An implanted [...] implanted port has two main parts: ??? [place]. The reservoir is the part where a [...] water are not available, use alcohol-based hand project construction manager. ? Change your dressing as told [...] provider. Document Revised: 03/01/2020 Document Reviewed: 12/11/2017 [employer]ibb Patient Education ?? 2020 [employer] Inc. Atrial Fibrillation Atrial fibrillation is a [...] signals of the heart. ??? An ambulatory case monitor to record your heart's activity for [...] provider. Document Revised: 05/01/2020 Document Reviewed: 05/01/2020 [employer]ibb Patient Education ?? 2020 [employer]. Aspirin and Your Heart Aspirin is [...] on filedocumented in this encounter Care Teams Rail Walker Relationship Specialty Start Date End Date Reji Tovar MD [address] [place] [address] PCP - General Adolescent Medicine 10/02/22 documented as of this encounter
--- OUTSIDE RECORDS SUMMARY | 2025-05-17 10:38 | XMS_ITS | Encounter Summary ---
Author Organization [employer] Address [address] [place] [address] Care Team Providers Care Bankruptcy Paralegal Name Role Phone Reji Castro MD Primary Care Provider + [phone] Encounter Details Date Type Department Care Team (Late st Contact Info) Description 08/13/2021 Transcribed Document [facility] Family Medicine [facility] [place] [address] ProviderDelvin MD [address] [place] [address] Social History Tobacco Use Types Packs/Day Years [...] III. Patient follows with Dr gonzáles in [place]. She has hx of obstructive uropathy with [...] # 0.62 x10(3)/uL (Low) 08/13/2021 05:19 EDT [place] % 9.5 % (High) 08/13/2021 05:19 EDT [place] # 0.52 K/uL 08/13/2021 05:19 EDT Eos [...] Vancomycin Random 15.0 mcg/mL 08/13/2021 05:19 EDT documented in this encounter Plan of Treatment Not on file documented as of this encounter Visit Diagnoses Not on filedocumented in this encounter Care Teams Bankruptcy Paralegal Relationship Specialty Start Date End Date Reji Castro MD [address] [place] [address] PCP - General Adolescent Medicine 10/02/22 documented as of this encounter
--- OUTSIDE RECORDS SUMMARY | 2025-05-17 10:38 | XMS_ITS | Encounter Summary ---
Author Organization [employer] Address [address] [place] [address] Care Team Providers Care Continuous Process Tanner Rotary Drum Name Role Phone Reji Castro MD Primary Care Provider + [phone] Encounter Details Date Type Department Care Team (Late st Contact Info) Description 08/13/2021 Transcribed Document [facility] [place] Family Medicine [facility] [place] [address] ProviderDelvin MD [address] [place] [address] Social History Tobacco Use Types Packs/Day Years [...] HPI: 56 y/o F presenting to [facility] with history of COPD, atrial [...] Encounter/Past 24 Hours) Creatinine Level 1.60 mg/dL [place] 08/13/2021 06:13 Bun/Creatinine 31.2 [place] 08/13/2021 06:13 Est. CrCl: 61 mL/min Intake [...] questions. Thank you, Andrea Moraes, PharmD PGY1 Ski Maker Pager: [phone], Ext. [phone] Electronically signed by Lanny [facility] Conversion Testboard Operator Cerner at 03/09/2023 8:40 PM CDT documented in this encounter Plan of Treatment Not on file documented as of this encounter Visit Diagnoses Not on filedocumented in this encounter Care Teams Continuous Process Tanner Rotary Drum Relationship Specialty Start Date End Date Reji Castro MD [address] [place] [address] PCP - General Adolescent Medicine 10/02/22 documented as of this encounter
--- OUTSIDE RECORDS SUMMARY | 2025-05-17 10:38 | XMS_ITS | Encounter Summary ---
Author Organization [employer] Address [address] [place] [address] Care Team Providers Care Drawing In Machine Tender Name Role Phone Reji Castro MD Primary Care Provider [phone] Encounter Details Date Type Department Care Team (Late st Contact Info) Description 08/13/2021 Transcribed Document [facility] [place] [address] [place] [address] ProviderDelvin MD [address] [place] [address] Social History Tobacco Use Types Packs/Day Years Used Date Smoking Tobacco: Never Assessed Comments Unknown Sex and Gender Information Value Date Recorded Sex Assigned at Not on file Legal Sex Female 4:32 PM CDT Gender Identity Not on file Sexual Orientation Not on file documented as of this encounter Miscellaneous Notes * Cerner Conversion Note - eDlvin ProviderMD - 08/13/2021 5:00 PM CDT Chart [...] on filedocumented in this encounter Care Teams Drawing In Machine Tender Relationship Specialty Start Date End Date Reji Castro MD [address] [place] [address] PCP - General Adolescent Medicine 10/02/22 documented as of this encounter
--- OUTSIDE RECORDS SUMMARY | 2025-05-17 10:38 | XMS_ITS | Encounter Summary ---
Author Organization [employer] Address [address] [place] [address] Care Team Providers Care Automation Developer Name Role Phone Reji Castro MD Primary Care Provider [phone] Encounter Details Date Type Department Care Team (Late st Contact Info) Description 08/23/2021 Transcribed Document [facility] Radiology [address] [place] [address] Loren Solorzano MD [address] [place] [address] [address] [place] [id number] Social History Tobacco Use Types Packs/Day Years [...] cefTRIAXone: 2 Gram, 100 mL/Hr, IV Piggyback, [id number] diphenhydrAMINE: 25 mg, Oral, Q6H, PRN: Itching [...] Oral, BID cefTRIAXone 2 Gram, IV Piggyback, [id number] citalopram 20 mg tab 40 mg 2 [...] Bioprosthetic mitral valve replacement / SNOMED CT 936796492 / Confirmed Chronic kidney disease / SNOMED CT 2278247793 / Confirmed COPD - Chronic obstructive pulmonary disease / SNOMED CT 653820717 / Confirmed History of obstructive sleep apnea / IMO 92975566 / Confirmed HLD - Hyperlipidemia / SNOMED CT 386194199 / Confirmed HTN - Hypertension / SNOMED CT 4120454848 / Confirmed Canceled: Atrial fibrillation / SNOMED CT 63628691, Active Problems (25) AIHA (autoimmune hemolytic anemia) [...] 26.0 \ Radiology Results (Last 48 hours) [id number] -- 08/11/2021 21:21 CR Chest 1 Vw [...] Hold home meds SSI #Depression Celexa #Pain [place] 10 mg every 6 hours as needed [...] on filedocumented in this encounter Care Teams Automation Developer Relationship Specialty Start Date End Date Reji Castro MD [address] [place] [address] PCP - General Adolescent Medicine 10/02/22 documented as of this encounter
--- OUTSIDE RECORDS SUMMARY | 2025-05-17 10:38 | XMS_ITS | Encounter Summary ---
Author Organization [employer] Address [address] [place] [address] Care Team Providers Care Heat Treat Inspector Name Role Phone Reji Castro MD Primary Care Provider [phone] Encounter Details Date Type Department Care Team (Late st Contact Info) Description 08/24/2021 Transcribed Document [facility] Family Medicine [facility] [place] [address] ProviderDelvin MD [address] [place] [address] Social History Tobacco Use Types Packs/Day Years [...] Warfarin HPI: 56 y/o F presenting to [facility] with history of [...] cefTRIAXone: 2 Gram, 100 mL/Hr, IV Piggyback, [id number]. citalopram: 40 mg, Oral, Daily. diphenhydrAMINE: 25 [...] you, Noy Garrett, PharmD PGY-1 Resident Pager #[phone] Electronically signed by Lanny [facility] Conversion Senior Patient Account Representative Cerner at 03/09/2023 8:39 PM CDT documented in this encounter Plan of Treatment Not on file documented as of this encounter Visit Diagnoses Not on filedocumented in this encounter Care Teams Heat Treat Inspector Relationship Specialty Start Date End Date Reji Castro MD [address] [place] [address] PCP - General Adolescent Medicine 10/02/22 documented as of this encounter
--- OUTSIDE RECORDS SUMMARY | 2025-05-17 10:38 | XMS_ITS | Encounter Summary ---
Author Organization [employer] Address [address] [place] [address] Care Team Providers Care Lion Trainer Name Role Phone Reji Castro MD Primary Care Provider [phone] Encounter Details Date Type Department Care Team (Late st Contact Info) Description 08/24/2021 Transcribed Document [facility] Radiology [address] [place] [address] Loren Solorzano MD [address] [place] [address] [place] [id number] Social History Tobacco Use Types Packs/Day Years [...] cefTRIAXone: 2 Gram, 100 mL/Hr, IV Piggyback, [id number] diphenhydrAMINE: 25 mg, Oral, Q6H, PRN: Itching [...] Oral, BID cefTRIAXone 2 Gram, IV Piggyback, [id number] citalopram 20 mg tab 40 mg 2 [...] Bioprosthetic mitral valve replacement / SNOMED CT 439431211 / Confirmed Chronic kidney disease / SNOMED CT 6045017490 / Confirmed COPD - Chronic obstructive pulmonary disease / SNOMED CT 518172274 / Confirmed History of obstructive sleep apnea / IMO 78928932 / Confirmed HLD - Hyperlipidemia / SNOMED CT 003484395 / Confirmed HTN - Hypertension / SNOMED CT 3531501852 / Confirmed Canceled: Atrial fibrillation / SNOMED CT 06753910, Active Problems (25) AIHA (autoimmune hemolytic anemia) [...] 26.6 \ Radiology Results (Last 48 hours) [id number] -- 08/11/2021 21:21 CR Chest 1 Vw [...] Hold home meds SSI #Depression Celexa #Pain [place] 10 mg every 6 hours as needed CODE STATUS. Full code Dispo: Given patient with history of multiple blood transfusion we will keep patient in the hospital on heparin drip and Coumadin till INR therapeutic need IV abx, at least until 09/08. Discussed with supervisor case loading. and pharmcy Time spent 25 minutes documented in this encounter Plan of Treatment Not on file documented as of this encounter Visit Diagnoses Not on filedocumented in this encounter Care Teams Lion Trainer Relationship Specialty Start Date End Date Reji Castro MD [address] [place] [address] PCP - General Adolescent Medicine 10/02/22 documented as of this encounter
--- OUTSIDE RECORDS SUMMARY | 2025-05-17 10:38 | XMS_ITS | Encounter Summary ---
Author Organization [employer] Address [address] [place] [address] Care Team Providers Care Automobile Upholsterer Apprentice Name Role Phone Reji Castro MD Primary Care Provider + [phone] Encounter Details Date Type Department Care Team (Late st Contact Info) Description 08/17/2021 Transcribed Document [facility] Family Medicine [facility] [place] [address] ProviderDelvin MD [facility] [place] [address] Social History Tobacco Use Types [...] her port could not be accessed. Her box bender aspirated fluid from the port that was evidently purulent. I have not yet been able to track down that culture. After the aspiration she developed fever to 103, severe CHEUNG, myalgias and arthralgias. She was admitted to [facility]. She was in the hospital [...] subsequently contacted and told to report to [facility] because she had + blood cutures concerning for an infected portacath +/- PVE. 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 Integumentary: Warm, [place]. Neurologic: Alert, Oriented, No focal deficits. Psychiatric: [...] of paula cath Electronically signed by Lanny, [facility] Conversion Field Account Manager Cerner at 03/09/2023 8:42 PM CDT documented in this encounter Plan of Treatment Not on file documented as of this encounter Visit Diagnoses Not on filedocumented in this encounter Care Teams Automobile Upholsterer Apprentice Relationship Specialty Start Date End Date Reji Castro MD [address] [place] [address] PCP - General Adolescent Medicine 10/02/22 documented as of this encounter
--- OUTSIDE RECORDS SUMMARY | 2025-05-17 10:38 | XMS_ITS | Encounter Summary ---
Author Organization [employer] Address [address] [place] [address] Care Team Providers Care Gun Profiler Name Role Phone Reji Castro MD Primary Care Provider + [phone] Encounter Details Date Type Department Care Team (Late st Contact Info) Description 08/27/2021 Transcribed Document [facility] [place] [facility] [place] [address] ProviderDelvin MD [address] [place] [address] Social History Tobacco Use Types Packs/Day Years [...] 3). Daily INR Will followZeyad PharmD, BCPS [phone] documented in this encounter Plan of Treatment Not on file documented as of this encounter Visit Diagnoses Not on filedocumented in this encounter Care Teams Gun Profiler Relationship Specialty Start Date End Date Reji Castro MD [address] [place] [address] PCP - General Adolescent Medicine 10/02/22 documented as of this encounter
--- OUTSIDE RECORDS SUMMARY | 2025-05-17 10:38 | XMS_ITS | Encounter Summary ---
Author Organization [employer] Address [address] [place] [address] Care Team Providers Care Inspector Precision Name Role Phone Reji Castro MD Primary Care Provider [phone] Encounter Details Date Type Department Care Team (Late st Contact Info) Description 08/17/2021 Transcribed Document [facility] [place] [address] [place] [address] ProviderDelvin MD [address] [place] [address] Social History Tobacco Use Types Packs/Day Years [...] filedocumented in this encounter Care Teams Inspector Precision Relationship Specialty Start Date End Date Reji Castro MD [address] [place] [address] PCP - General Adolescent Medicine 10/02/22 documented as of this encounter
--- OUTSIDE RECORDS SUMMARY | 2025-05-17 10:38 | XMS_ITS | Encounter Summary ---
Author Organization [employer] Address [address] [place] [address] Care Team Providers Care Hold Worker Name Role Phone Reji Castro MD Primary Care Provider + [phone] Encounter Details Date Type Department Care Team (Late st Contact Info) Description 08/13/2021 Transcribed Document [facility] [place] Family Medicine [address] [place] [address] ProviderDelvin MD [address] [place] [address] Social History Tobacco Use Types Packs/Day Years [...] mg, 14 mL, 128 mL/Hr, IV Piggyback, [id number] Dextrose 50% injection: 12.5 Gram, IV Push, [...] improvement time 35mins Electronically signed by Interface, [facility] Conversion Commercial Lines Account Executive Cerner at 03/09/2023 9:02 PM CDT documented in this encounter Plan of Treatment Not on file documented as of this encounter Visit Diagnoses Not on filedocumented in this encounter Care Teams Hold Worker Relationship Specialty Start Date End Date Reji Castro MD [address] [place] [id number] PCP - General Adolescent Medicine 10/02/22 documented as of this encounter
--- OUTSIDE RECORDS SUMMARY | 2025-05-17 10:38 | XMS_ITS | Encounter Summary ---
Author Organization [employer] Address [address] [place] [address] Care Team Providers Care Machine Operator Slitter Technician Name Role Phone Reji Castro MD Primary Care Provider [phone] Encounter Details Date Type Department Care Team (Late st Contact Info) Description 08/23/2021 Transcribed Document [facility] Family Medicine [facility] [place] [address] ProviderDelvin MD [address] [place] [address] Social History Tobacco Use Types Packs/Day Years [...] HPI: 56 y/o F presenting to [facility] with history of COPD, atrial fibrillation, CKD [...] cefTRIAXone: 2 Gram, 100 mL/Hr, IV Piggyback, [id number]. citalopram: 40 mg, Oral, Daily. diphenhydrAMINE: 25 [...] you, Noy Garrett, PharmD PGY-1 Resident Pager #[phone] Electronically signed by [facility] Conversion Scrubber Operator Cerner at 03/09/2023 8:59 PM CDT documented in this encounter Plan of Treatment Not on file documented as of this encounter Visit Diagnoses Not on filedocumented in this encounter Care Teams Machine Operator Slitter Technician Relationship Specialty Start Date End Date Reji Castro MD [address] [place] [address] PCP - General Adolescent Medicine 10/02/22 documented as of this encounter
--- OUTSIDE RECORDS SUMMARY | 2025-05-17 10:38 | XMS_ITS | Clinical Summary ---
Author Organization [facility] Address [address] [place] [address] Care Team Providers Care Ultrasound Technologist Sonographer Name Role Phone Reji Castro MD [...] (one) time each day. Active Continuous Glucose Buncher Hand (FreeStyle Gerson 14 Day [place]) device use as directed 4 Active Continuous [...] Description 05/07/2025 Orders Only External Location [address] [place] [id number] Provider, External 05/07/2025 Orders Only External Location [address] [place] [address] Provider, External from Last 3 Months Immunizations [...] to sleep or slept in a senior living (including now)? No 11/19/2023 Utilities Answer Date [...] 2013 UKY-Zoster Vaccines (1 of 2) 2013 SBW-FQNER-67 Vaccine (3 - Moderna risk series) 03/24/2021 [...] Reactive Non Reactive 12/15/2024 9:33 PM EST [facility] Comment:Screening for HIV 1 & 2 antibodies, and P24 antigen is NONREACTIVE. No confirmatory testing is required. Blood Venous blood specimen / Unknown Venipuncture / Unknown 12/15/2024 8:10 PM EST 12/15/2024 8:52 PM EST Elijah Negron MD LAB BLOOD ORDERABLES Final Result [facility] [address] [place] [address] * Hepatitis C Antibody - ED (12/15/2024 8:10 PM EST) Hepatitis C Antibody Negative Negative 12/15/2024 9:33 PM EST [facility] Blood Venous blood specimen / Unknown Venipuncture / Unknown 12/15/2024 8:10 PM EST 12/15/2024 8:52 PM EST Elijah Negron MD LAB BLOOD ORDERABLES Final Result [facility] [address] [place] [address] * (ABNORMAL) Hemoglobin A1c (11/20/2023 2:15 AM [...] Adults <6.0% Children and Adolescents <7.5% Source: [place] [employer]. Standards of medical care in diabetes,2017. Diabetes Care.2017:40 (suppl 1):S1-S135. HbA1c assay performed by an ion-exchange chromatography method that is certified traceable to the DCCT. us Alannah Conti APRN LAB BLOOD ORDERABLES Final Re sult Performing Organization Address City/[facility] Co de Phone Number [facility] [address] [place] [address] from Last 3 Months or Most Recently Relevant to Health Maintenance Insurance [facility] MEDIC[facility] Advance Directives * Full Code (Latest Code Status on File) Date Activated Date Inactivated Comments 11/18/2023 5:56 PM 11/24/2023 4:04 PM Question Answer Comments Patient has decision-making capacity? Yes Care Teams Ultrasound Technologist Sonographer Relationship Specialty Start Date End Date Reji Castro MD [address] [place] [id number] PCP - General Internal Medicine 12/08/23
--- OUTSIDE RECORDS SUMMARY | 2025-05-17 10:38 | XMS_ITS | Encounter Summary ---
Author Organization [employer] [facility] [employer] Address [address] [place] [address] Care Team Providers Care Automobile Mechanic Assistant Name Role Phone Reji Castro MD Primary Care Provider [phone] Encounter Details Date Type Department Care Team (Late st Contact Info) Description 08/27/2021 Transcribed Document [facility] [place] [address] [place] [address] ProviderDelvin MD [address] [place] [address] Social History Tobacco Use Types Packs/Day Years [...] 3:29 EDT Electronically signed by Lanny [facility] Conversion Wheelchair Rental Clerk Cerner at 03/09/2023 8:34 PM CDT documented in this encounter Plan of Treatment Not on file documented as of this encounter Visit Diagnoses Not on filedocumented in this encounter Care Teams Automobile Mechanic Assistant Relationship Specialty Start Date End Date Reji Castro MD [address] [place] [address] PCP - General Adolescent Medicine 10/02/22 documented as of this encounter
--- OUTSIDE RECORDS SUMMARY | 2025-05-17 10:38 | XMS_ITS | Encounter Summary ---
Author Organization [employer] [facility] [employer] Address [address] [place] [address] Care Team Providers Care Firestop/Containment Worker Name Role Phone Reji Castro MD Primary Care Provider + [phone] Encounter Details Date Type Department Care Team (Late st Contact Info) Description 08/13/2021 Transcribed Document [facility] [place] Family Medicine [facility] [place] [address] ProviderDelvin MD [facility] [place] [place] [address] Social History Tobacco Use Types Packs/Day Years [...] these transfusions about 3 years ago at [facility]. Last month she developed fever, headache, nausea, and was admitted to [facility]. CHUCHO/TTE at that time showed possible bacteria on the tip of her port. She was treated with PO antibiotics with resolution of symptoms and was discharged home with no plans for port removal. She reports a few days ago she again had headache and nausea, this time without fever. She presented to the emergency department at [facility] with blood cultures drawn which were supposedly positive for staph epi. She was subsequently told to come to [facility] ED for ID consultation. Review of Systems [...] fibrillation 5. Diabetes mellitus type II 6. half-way current use of anticoagulant At risk for [...] Diagnostic Results Radiology Results (Last 48 hours) [id number] -- 08/11/2021 21:21 CR Chest 1 Vw [...] 08/13/2021 06:13 Blood Urea Nitrogen 50 mg/dL DE 08/13/2021 06:13 Glucose Level 102 mg/dL 08/13/2021 06:13 Albumin Level 3.9 Gram/dL 08/13/2021 06:13 Bilirubin Total 0.5 mg/dL 08/13/2021 06:13 Calcium Level 9.1 mg/dL 08/13/2021 06:[address] [facility] Conversion Gum Worker Cerner at 03/09/2023 8:43 PM CDT documented in this encounter Plan of Treatment Not on file documented as of this encounter Visit Diagnoses Not on filedocumented in this encounter Care Teams Firestop/Containment Worker Relationship Specialty Start Date End Date Reji Castro MD [address] [place] [address] PCP - General Adolescent Medicine 10/02/22 documented as of this encounter
--- OUTSIDE RECORDS SUMMARY | 2025-05-17 10:38 | XMS_ITS | Encounter Summary ---
Author Organization [employer] [facility] [employer] Address [address] [place] [address] Care Team Providers Care Regional Flatbed Truck Driver Name Role Phone Reji Castro MD Primary Care Provider [phone] Encounter Details Date Type Department Care Team (Late st Contact Info) Description 08/24/2021 Transcribed Document [facility] [place] [address] [place] [address] ProviderDelvin MD [address] [place] [address] Social History Tobacco Use Types Packs/Day Years [...] filedocumented in this encounter Care Teams Regional Flatbed Truck Driver Relationship Specialty Start Date End Date Reji Castro MD [address] [place] [address] PCP - General Adolescent Medicine 10/02/22 documented as of this encounter
--- OUTSIDE RECORDS SUMMARY | 2025-05-17 10:38 | XMS_ITS | Encounter Summary ---
Author Organization [employer] [facility] [employer] Address [address] [place] [address] Care Team Providers Care Lead Burner Supervisor Name Role Phone Reji Castro MD Primary Care Provider [phone] Encounter Details Date Type Department Care Team (Late st Contact Info) Description 08/17/2021 Transcribed Document [facility] [place] [address] [place] [address] ProviderDelvin MD [address] [place] [address] Social History Tobacco Use Types Packs/Day Years [...] filedocumented in this encounter Care Teams Lead Burner Supervisor Relationship Specialty Start Date End Date Reji Castro MD [address] [place] [address] PCP - General Adolescent Medicine 10/02/22 documented as of this encounter
--- OUTSIDE RECORDS SUMMARY | 2025-05-17 10:38 | XMS_ITS | Encounter Summary ---
Author Organization [employer] [facility] [employer] Address [address] [place] [address] Care Team Providers Care Assembler Movement Name Role Phone Reji Castro MD Primary Care Provider [phone] Encounter Details Date Type Department Care Team (Late st Contact Info) Description 08/13/2021 Transcribed Document [facility] [place] [address] [place] [address] ProviderDelvin MD [address] [place] [address] Social History Tobacco Use Types Packs/Day Years [...] On: 08/13/2021 7:24 EDT by Marline Leija, Professor Of Violin Primary Insurance Authorization Authorization and Policy Numbers : Insurance 1 Health Plan: [employer] PPO Policy Number: [id number] Authorization Number: Insurance 2 Health Plan: [place] Policy Number: [id number] Authorization Number: Insurance Primary Name : [employer] PPO Policy Number: [id number] Authorization Status-Primary : Notification only Reference Number-Primary : [id number] Authorization Number-Primary : [id number] Authorized Service Begin Date-Primary : 08/11/2021 EDT Authorization Comments-Primary : Authorized per email from Khari Cohen RN. Historical Authorization Comments-Primary : Comment 1: Pend ref no per Availity, reviewer has access to [employer] (JORGE VALLES RN 08/12/2021 14:07) Marline Leija, Professor Of Violin - 08/13/2021 7:24 EDT Electronically signed by Lanny [facility] Conversion Flight Mechanic Cerner at 03/09/2023 8:49 PM CDT documented in this encounter Plan of Treatment Not on file documented as of this encounter Visit Diagnoses Not on filedocumented in this encounter Care Teams Assembler Movement Relationship Specialty Start Date End Date Reji Castro MD [address] [place] [id number] PCP - General Adolescent Medicine 10/02/22 documented as of this encounter
--- OUTSIDE RECORDS SUMMARY | 2025-05-17 10:38 | XMS_ITS | Encounter Summary ---
Author Organization [employer] [facility] [employer] Address [address] [place] [address] Care Team Providers Care Community Service Technician Name Role Phone Reji Castro MD Primary Care Provider + [phone] Encounter Details Date Type Department Care Team (Late st Contact Info) Description 08/18/2021 Transcribed Document [facility] [place] [facility] [place] [address] ProviderDelvin MD [address] [place] [address] Social History Tobacco Use Types Packs/Day Years [...] History of obstructive sleep apnea / IMO [id number] / Confirmed Bioprosthetic mitral valve replacement / SNOMED CT 913258538 / Confirmed Chronic kidney disease / SNOMED CT 0938194056 / Confirmed COPD - Chronic obstructive pulmonary disease / SNOMED CT 955665278 / Confirmed HTN - Hypertension / SNOMED CT 0347468650 / Confirmed HLD - Hyperlipidemia / SNOMED CT 678845482 / Confirmed Amblyopia / SNOMED CT 2475786899 / Confirmed 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 / SNOMED CT 955913976 / Confirmed Myocardial infarction / SNOMED CT 25000148 / Confirmed Atrial fibrillation / SNOMED CT 67571608 / Confirmed GERD - Gastro-esophageal reflux disease / SNOMED CT 4912440338 / Confirmed Diverticulosis / SNOMED CT 8372182948 / Confirmed Hepatomegaly / SNOMED CT 694251607 / Confirmed Renal calculus / SNOMED CT 423043064 / Confirmed Ovarian cyst / SNOMED CT 733164659 / Confirmed Arthritis / SNOMED CT 1994251 / Confirmed Back pain / PNED [id number] / Confirmed Fibromyalgia / SNOMED CT 90024199 / Confirmed Restless legs syndrome / SNOMED CT 86208371 / Confirmed Diabetes mellitus type II / SNOMED CT 76036002 / Confirmed Thyroid disease / SNOMED CT 030929325 / Confirmed Edema / SNOMED CT 094613651 / Confirmed BLE neuropathy hands and feet / Confirmed frequent headache / Confirmed AIHA (autoimmune hemolytic anemia) / SNOMED CT 7524732529 / Confirmed, Active Problems (25) AIHA (autoimmune [...] on filedocumented in this encounter Care Teams Community Service Technician Relationship Specialty Start Date End Date Reji Castro MD [address] [place] [address] PCP - General Adolescent Medicine 10/02/22 documented as of this encounter
--- OUTSIDE RECORDS SUMMARY | 2025-05-17 10:38 | XMS_ITS | Encounter Summary ---
Author Organization [employer] [facility] [employer] Address [address] [place] [address] Care Team Providers Care Mechanical Systems Engineer Name Role Phone Reji Castro MD Primary Care Provider + [phone] Encounter Details Date Type Department Care Team (Late st Contact Info) Description 08/27/2021 Transcribed Document [facility] [place] Family Medicine [address] [place] [address] ProviderDelvin MD [address] [place] [address] Social History Tobacco Use Types Packs/Day Years [...] 10:18 AM CDT Reji Castro MD [address] [facility] [address] [place] [address] Re: IRINA RONI Date of Visit: 08/11/2021 [...] contents is strictly prohibited. Sincerely, FAIZA YOUSSEF [address] [place] [address] [address] [place] [address] The following document(s) were included in the letter: August 27, 2021 10:05:19 EDT - (08/27/2021) Discharge Note documented in this encounter Plan of Treatment Not on file documented as of this encounter Visit Diagnoses Not on filedocumented in this encounter Care Teams Mechanical Systems Engineer Relationship Specialty Start Date End Date Reji Castro MD [address] [place] [id number] PCP - General Adolescent Medicine 10/02/22 documented as of this encounter
--- OUTSIDE RECORDS SUMMARY | 2025-05-17 10:38 | XMS_ITS | Encounter Summary ---
Author Organization [facility] Address [address] [place] [address] Care Team Providers Care International Operations Manager Name Role Phone Anna Marie Savage MD Primary Care Provider [phone] Reji Castro MD Primary Care Provider [phone] Encounter Details Date Type Department Care Team (Late st Contact Info) Description 10/05/2022 Orders Only External Location [address] [place] [address] Provider, External Social History Tobacco Use Types [...] on filedocumented in this encounter Care Teams International Operations Manager Relationship Specialty Start Date End Date Anna Marie Savage MD [address] [place] [id number] PCP - General 04/04/21 12/07/23 Reji Castro MD [address] [facility] [address] [place] [address] PCP - General Internal Medicine 12/08/23 documented as of this encounter
--- OUTSIDE RECORDS SUMMARY | 2025-05-17 10:38 | XMS_ITS | Encounter Summary ---
Author Organization [employer] [facility] [employer] Address [address] [place] [address] Care Team Providers Care Pharmacy Innovation Assistant Name Role Phone Reji Castro MD Primary Care Provider [phone] Encounter Details Date Type Department Care Team (Late st Contact Info) Description 08/18/2021 Transcribed Document [facility] [place] Family Medicine [address] [place] [address] ProviderDelvin MD [address] [place] [address] Social History Tobacco Use Types Packs/Day Years [...] # 0.52 x10(3)/uL (Low) 08/18/2021 06:56 EDT Sullivan % 8.7 % 08/18/2021 06:56 EDT Sullivan # 0.61 K/uL 08/18/2021 06:56 EDT Eos [...] (High) 08/18/2021 06:56 EDT Electronically signed by [facility] Conversion Drums Teacher Cerner at 03/09/2023 9:00 PM CDT documented in this encounter Plan of Treatment Not on file documented as of this encounter Visit Diagnoses Not on filedocumented in this encounter Care Teams Pharmacy Innovation Assistant Relationship Specialty Start Date End Date Reji Castro MD [address] [place] [id number] PCP - General Adolescent Medicine 10/02/22 documented as of this encounter
--- OUTSIDE RECORDS SUMMARY | 2025-05-17 10:38 | XMS_ITS | Encounter Summary ---
Author Organization [employer] [facility] [employer] Address [address] [place] [address] Care Team Providers Care Meteorology Faculty Member Name Role Phone Reji Castro MD Primary Care Provider + [phone] Encounter Details Date Type Department Care Team (Late st Contact Info) Description 08/17/2021 Transcribed Document [facility] [place] [facility] [place] [address] ProviderDelvin MD [address] [place] [address] Social History Tobacco Use Types Packs/Day Years [...] on filedocumented in this encounter Care Teams Meteorology Faculty Member Relationship Specialty Start Date End Date Reji Csatro MD [address] [place] [id number] PCP - General Adolescent Medicine 10/02/22 documented as of this encounter
--- OUTSIDE RECORDS SUMMARY | 2025-05-17 10:38 | XMS_ITS | Encounter Summary ---
Author Organization [employer] [facility] [employer] Address [address] [place] [address] Care Team Providers Care Human Resources Designate Name Role Phone Reji Castro MD Primary Care Provider [phone] Encounter Details Date Type Department Care Team (Late st Contact Info) Description 08/18/2021 Transcribed Document [facility] Radiology [address] [place] [address] Loren Solorzano MD [address] [place] [address] [place] [id number] Social History Tobacco Use Types Packs/Day Years [...] Bioprosthetic mitral valve replacement / SNOMED CT 738537343 / Confirmed Chronic kidney disease / SNOMED CT 8003608814 / Confirmed COPD - Chronic obstructive pulmonary disease / SNOMED CT 671550616 / Confirmed History of obstructive sleep apnea / IMO 78871550 / Confirmed HLD - Hyperlipidemia / SNOMED CT 263437391 / Confirmed HTN - Hypertension / SNOMED CT 4799166599 / Confirmed Canceled: Atrial fibrillation / SNOMED CT 97820310, Active Problems (25) AIHA (autoimmune hemolytic anemia) [...] Apical HR 75 (AUG 17 20:10) 75 ([facility] 20:10) 75 ([facility] 20:10) Mon HR 63 (AUG 18 06:) 63 (AUG 18 06:) 84 (AUG 17 18:12) Resp Rate 18 (AUG 18:) 16 (AUG 17:) 18 (AUG 18 06:29) SBP 105 (AUG 18 06:) 101 (AUG 17 22:) 107 ([facility] 02:02) DBP L 53 (AUG 18:) L 45 (AUG 17 18:12) 61 (AUG 17:) MAP 77 (AUG 18 06:29) 70 ([facility] 18:12) 78 ([facility] 22:27) SpO2 95 (AUG 18 06:29) L [...] 50 mL 700 mg, IV Piggyback, Inj, Q38REbw, infuse over 30 Minute(s), Routine, Start 08/14/21 [...] Hold home meds SSI #Depression Celexa #Pain Presho 10 mg every 6 hours as needed [...] on filedocumented in this encounter Care Teams Human Resources Designate Relationship Specialty Start Date End Date Reji Castro MD [address] [place] [id number] PCP - General Adolescent Medicine 10/02/22 documented as of this encounter
--- OUTSIDE RECORDS SUMMARY | 2025-05-17 10:38 | XMS_ITS | Referral Summary ---
Author Organization [employer] Address [address] [facility] [place] [address] Care Team Providers Care Fresh Foods Technician Name Role Phone Reji Castro MD Primary Care Provider [phone] Allergies Active Allergy Reactions Criticality Noted Date [...] Date Yash rded Speak language other than Burundian at home Not on file 12/10/2023 Want [...] Plan of Treatment Not on file Insurance [facility] Advance Directives For more information, please contact: [phone] Documents on File Type Date Recorded Patient Slot Ambassador Expl anation Advance Directives and Gato ponce Will 10/05/2022 8:36 AM Care Teams Fresh Foods Technician Relationship Specialty Start Date End Date Reji Castro MD [address] [place] [id number] PCP - General Adolescent Medicine 10/02/22
--- OUTSIDE RECORDS SUMMARY | 2025-05-17 10:38 | XMS_ITS | Encounter Summary ---
Author Organization [employer] Address [address] [place] [address] Care Team Providers Care Racing Secretary And Handicapper Name Role Phone Reji Castro MD Primary Care Provider [phone] Encounter Details Date Type Department Care Team (Late st Contact Info) Description 08/27/2021 Transcribed Document [facility] [place] Family Medicine [address] [place] [address] ProviderDelvin MD [address] [place] [address] Social History Tobacco Use Types Packs/Day Years Used Date Smoking Tobacco: Never Assessed Comments Unknown Sex and Gender Information Value Date Recorded Sex Assigned at Not on file Legal Sex Female 4:32 PM CDT Gender Identity Not on file Sexual Orientation Not on file documented as of this encounter Miscellaneous Notes * [employer]ner Conversion Note - Delvin ProviderMD - 08/27/2021 2:00 AM CDT Jewelry Salesperson Details Entered On: 08/27/2021 3:29 EDT Performed [...] on filedocumented in this encounter Care Teams Racing Secretary And Handicapper Relationship Specialty Start Date End Date Reji Castro MD [address] [place] [id number] PCP - General Adolescent Medicine 10/02/22 documented as of this encounter
--- OUTSIDE RECORDS SUMMARY | 2025-05-17 10:38 | XMS_ITS | Clinical Summary ---
Author Organization [facility] Address [address] [facility] [address] [place] [address] Phone Care Team Providers Care Manager Sales And Marketing Name Role Phone Joan Moore MD [phone] [ ] Conditions or Problems Problem Name Problem Code Onset Date Status Entry Date Provider Comment Standard Description Annotate Bloodstream infection due to port, subsequent encounter(s) T80.211D (ICD-10-CM) Active 0 Lisa Torres Bloodstream infection due to central venous catheter, subsequent encounter Coag-negative staph sepsis/septic meia A41.1 (ICD-10-CM) Active 0 Lisa Torres Sepsis due to other specified staphylococcus Autoimmune hemolytic anemia, unspecified 050210672 (SNOMED CT) Active 0 Lisa Torres Autoimmune hemolytic anemia COPD 70335357 (SNOMED CT) Active 0 Lisa Torres Chronic obstructive pulmonary disease Presence of prosthetic heart valve Z95.2 (ICD-10-CM) Active 0 Lisa Torres Presence of prosthetic heart valve HTN CKD, bgn, 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) 4650567 (SNOMED CT) Active 0 Lisa Torres Benign essential hypertension Medications Medication Instructions Start Date Stop Date Generic Name [facility] Provider CEFTRIAXONE SODIUM 1 GM SOLR 2gm IV Q 24hrs through 09/08 [employer] [phone] ceftriaxone [id number] [place] LEVOTHYROXINE SODIUM 25 MCG TABS TAKE 1 TABLET BY MOUTH DAILY levothyroxine 08614870171 Belkis Mattson BUMETANIDE 2 MG TABS bumetanide 85042554331 Belkis Mattson DEXILANT 60 MG CPDR dexlansoprazole 22828712078 Belkis Mattson OLOPATADINE HCL 0.2 % SOLN olopatadine 34324035870 Belkis Mattson ALPRAZOLAM 0.5 MG TABS alprazolam 33227520249 Belkis Mattson WARFARIN SODIUM 4 MG TABS warfarin 02441112112 Belkis Mattson SPIRONOLACTONE 25 MG TABS TAKE 1 TABLET BY MOUTH ONCE A DAY. spironolactone 83185484446 Belkis Mattson FOLIC ACID 1 MG TABS TAKE 1 TABLET BY MOUTH ONCE A DAY. folic acid 66461491978 Belkis Mattson RAMY ASPIRIN EC LOW DOSE 81 MG TBEC aspirin 54652688338 Blekis Mattson CELEXA 40 MG TABS citalopram 35692450376 Belkis Mattson docusate sodium unspecified unspecified docusate sodium 11870663952 Angelita Mattson FAMOTIDINE 20 MG TABS famotidine 21732377725 Belkis Mattson PERCOCET 10-325 MG TABS oxycodone-acetam i nophen 63557519349 Belkis Mattson TOPROL XL 25 MG [id number] metoprolol succinate 91922641679 Belkis Mattson CEFTRIAXONE SODIUM 1 GM SOLR 2gm IV Q 24hrs through 09/08 HH [employer] HH [phone] ceftriaxone 02912424999 [facility] Medications Administered No information available. Allergies, Adverse [...]
--- OUTSIDE RECORDS SUMMARY | 2025-05-17 10:38 | XMS_ITS | Encounter Summary ---
Author Organization [employer] Address [address] [place] [address] Care Team Providers Care Shuttle Veneering Supervisor Name Role Phone Reji Castro MD Primary Care Provider [phone] Encounter Details Date Type Department Care Team (Late st Contact Info) Description 08/24/2021 Transcribed Document [facility] [place] [address] [place], [place] [id number] ProviderDelvin MD [address] [place] [address] Social History Tobacco Use Types Packs/Day Years [...] cefTRIAXone: 2 Gram, 100 mL/Hr, IV Piggyback, [id number] diphenhydrAMINE: 25 mg, Oral, Q6H, PRN: Itching [...] Oral, BID cefTRIAXone 2 Gram, IV Piggyback, [id number] citalopram 20 mg tab 40 mg 2 [...] Bioprosthetic mitral valve replacement / SNOMED CT 254853159 / Confirmed Chronic kidney disease / SNOMED CT 4185179919 / Confirmed COPD - Chronic obstructive pulmonary disease / SNOMED CT 002472829 / Confirmed History of obstructive sleep apnea / IMO 84271850 / Confirmed HLD - Hyperlipidemia / SNOMED CT 017732666 / Confirmed HTN - Hypertension / SNOMED CT 2327307906 / Confirmed Canceled: Atrial fibrillation / SNOMED CT 36582135, Active Problems (25) AIHA (autoimmune hemolytic anemia) [...] medications. Electronically signed by Lanny, [facility] Conversion Home Health Occupational Therapist Cerner at 03/09/2023 8:38 PM CDT documented in this encounter Plan of Treatment Not on file documented as of this encounter Visit Diagnoses Not on filedocumented in this encounter Care Teams Shuttle Veneering Supervisor Relationship Specialty Start Date End Date Reji Castro MD [address] [place] [address] PCP - General Adolescent Medicine 10/02/22 documented as of this encounter
--- OUTSIDE RECORDS SUMMARY | 2025-05-17 10:38 | XMS_ITS | Encounter Summary ---
Author Organization [employer] Address [address] [place] [address] Care Team Providers Care Research Professional Name Role Phone Reji Castro MD Primary Care Provider [phone] Encounter Details Date Type Department Care Team (Late st Contact Info) Description 08/18/2021 Transcribed Document [facility] [place] [address] [place] [address] ProviderDelvin MD [address] [place] [address] Social History Tobacco Use Types Packs/Day Years [...] filedocumented in this encounter Care Teams Research Professional Relationship Specialty Start Date End Date Reji Castro MD [address] [place] [address] PCP - General Adolescent Medicine 10/02/22 documented as of this encounter
--- OUTSIDE RECORDS SUMMARY | 2025-05-17 10:39 | XMS_ITS | Encounter Summary ---
Author Organization [employer] Address [address] [place] [address] Care Team Providers Care Clinical Case Manager Name Role Phone Reji Castro MD Primary Care Provider [phone] Encounter Details Date Type Department Care Team (Late st Contact Info) Description 08/13/2021 Transcribed Document [facility] [place] [facility] [place], [place] [id number] ProviderDelvin MD [address] [place] [address] Social History Tobacco Use Types Packs/Day Years [...] On: 08/13/2021 10:20 EDT by Reina Tian, BRICK MAKER Phone Call for Consults Consult Phone Call/Page Attempt : Other: BEATRIS Edward was on floor and was notified by Celina Wilder Rn about consult Consult Reason : paula cath inf., needing removal. Physician Requesting Consult : FAIZA YOUSSEF DO Physician Requested for Consult : NENA PEARSON MD-[facility] Physician Covering for Consult : SHEBA CARTY PA Date and Time Call Returned : 08/14/2021 10:39 EDT Reina Tian, BRICK MAKER - 08/13/2021 10:37 EDT Electronically signed by Lanny, [facility] Conversion Emissions Testing And Repair Technician Cerner at 03/09/2023 8:38 PM CDT documented in this encounter Plan of Treatment Not on file documented as of this encounter Visit Diagnoses Not on filedocumented in this encounter Care Teams Clinical Case Manager Relationship Specialty Start Date End Date Reji Castro MD [address] [place] [address] PCP - General Adolescent Medicine 10/02/22 documented as of this encounter
[2025-05-17 10:52] LABS: Basophils % 0.4 % (0.1-2.0); Eosinophils # 0.1 Kmm3 (0.0-0.4); Eosinophils % 1.1 % (0.1-12.0); Hematocrit 30.7 % (37.0-47.0); Hemoglobin 9.4 g/dL (12.2-16.2); Immature Granulocytes # 0.05 10^3uL; Immature Granulocytes % 0.6 %; Lymphocytes # 0.2 K/mm3 (0.7-4.5); Lymphocytes % 2.2 % (10-50); Mean Corpuscular HGB Conc 30.6 g/dL (31.8-35.4); Mean Corpuscular Hemoglobin 25.7 pg (27.0-31.2); Mean Corpuscular Volume 83.9 fl (81-99); Mean Platelet Volume 9.4 fl (7.4-10.4); Monocytes # 0.9 K/mm3 (0.1-1.0); Monocytes % 10.2 % (1.7-9.3); Neutrophils # 7.6 K/mm3 (1.8-7.8); Neutrophils % 85.5 % (37.0-80.0); Nucleated Red Blood Cells # 0 10^3/uL; Nucleated Red Blood Cells % 0 %; Platelet Count 259 K/mm3 (142-424); Red Blood Count 3.66 M/mm3 (4.20-5.40); Red Cell Distribution Width 18.6 % (11.5-17.5); Red Cell Distribution Width-SD 56.7 fL; White Blood Count 8.9 K/mm3 (4.8-10.8)
[2025-05-17 10:58] LABS: Chloride 85 mmol/L (98-107); Sodium 129 mmol/L (136-145)
[2025-05-17 10:59] LABS: Potassium 4.2 mmoL/L (3.5-5.1)
[2025-05-17 11:02] LABS: Anion Gap 18.2 mEq/L (5-15); Blood Urea Nitrogen 70 mg/dl (7-17); Calcium 9.4 mg/dl (8.4-10.2); Carbon Dioxide 30 mmol/L (22.0-30.0); Estimated Glomerular Filt Rate 27 ml/min (>60); GFR (African American) 32 ML/MIN (>60); Glucose 117 mg/dl (74-100)
[2025-05-17 11:06] LABS: MANUAL DIFFERENTIAL MANUAL DIFFERENTIAL (MANUAL DIFF)
[2025-05-17] MEDS: SODIUM CHLORIDE 0.9% 50ML BAG 50 ML IV (11:19)
[2025-05-17] MEDS: SODIUM CHLORIDE 0.9% 10ML FLUSH SYRINGE 10 ML IV (11:19)
[2025-05-17 11:20] VITALS: BP 115/75; PULSE 80; RESP 20; TEMP 36.6; O2SAT 98
[2025-05-17] MEDS: ferumoxytoL 510 MG in 0.9 % SODIUM CHLORIDE 50 ML 268 MG IV (11:20)
[2025-05-17 11:31] LABS: INR 2.76 (0.9-1.1); Prothrombin Time 28.4 seconds (10.1-12.5)
--- OUTSIDE RECORDS SUMMARY | 2025-05-17 11:38 | XMS_ITS | CCD ---
Author Organization Unknown Care Team Providers Care Recovery Specialist Name Role Phone Non Engaged, [facility] Primary Care Provider Unav ailable Unavailable Chronic Care Management Unavaila ble Summary Purpose DataExchange Insurance Providers Payer name Policy type / Coverage type Covered republican ID Effective Begin Date Effective End Date [facility] [id number] Unknown Unknown Family History Family History data not found Medication Administered No Medication Administered data Reason For Visit No Reason For Visit data Medical Equipment No Medical Equipment data Advance Directives No Advance Directive data
[2025-05-17 11:54] VITALS: BP 111/76; PULSE 81; RESP 20; O2SAT 97
[2025-05-17 12:09] LABS: Eosinophils % 2 % (0-3); Lymphocytes % 6 % (10-50); Monocytes % 14 % (2-9); Neutrophils % 78 % (42-76); Platelet Estimate Normal; RBC Morphology Normal; Total Cells Counted 100
== END 2025-05-17 11:54 | disposition home or self-care (01) ==
LOC: INF 10:33
PROVIDERS: Internal Medicine; PCP Internal Medicine Adolescent Medicine; Visit Provider Internal Medicine Medical Oncology
DX: D59.9 Acquired hemolytic anemia, unspecified (principal); D64.9 Anemia, unspecified; K27.9 Peptic ulcer, site unspecified, unspecified as acute or chronic, without hemorrhage or perforation; R29.6 Repeated falls; E11.9 Type 2 diabetes mellitus without complications; G31.84 Mild cognitive impairment of uncertain or unknown etiology
CPT/HCPCS: 80048; 85007; 85025; 85027; 85610; 96365; J1642; Q0138

== ENCOUNTER 2025-05-24 09:06 | Outpatient (CLI) | payer MEDICARE, SELFPAY ==
[2025-05-24 09:09] VITALS: BMI 33.6
--- OUTSIDE RECORDS SUMMARY | 2025-05-24 09:11 | XMS_ITS | Encounter Summary ---
Author Organization [employer] ([place], [place], [place], [place]) Address [address] [place] [address] Care Team Providers Care Patient Navigator Name Role Phone Reji Castro MD Primary Care Provider + [phone] Encounter Details Date Type Department Care Team (Late st Contact Info) Description 08/11/2021 Transcribed Document [facility] [place] [address] [place] [address] ProviderDelvin MD [address] [place], [place] [phone] Social History Tobacco Use Types Packs/Day Years Used Date Smoking Tobacco: Never Assessed Comments Unknown Sex and Gender Information Value Date Recorded Sex Assigned at Not on file Legal Sex Female 4:32 PM CDT Gender Identity Not on file Sexual Orientation Not on file documented as of this encounter Miscellaneous Notes * Cerner Conversion Note - Historical ProviderMD - 08/11/2021 4:16 PM CDT Broset Violence Assessment Entered On: 08/11/2021 18:48 EDT Performed On: 08/11/2021 18:46 EDT by MARIPOSA JACQUES RN Broset Violence Assessment Broset Violence Checklist of Symptoms : None Broset Violence Symptoms Subtotal : 0 Broset Violence Symptoms Indicator : Low risk (0) Broset Interventions : [place] precautions for safety used MARIPOSA JACQUES RN - 08/11/2021 18:46 EDT documented in this encounter Plan of Treatment Not on file documented as of this encounter Visit Diagnoses Not on filedocumented in this encounter Care Teams Patient Navigator Relationship Specialty Start Date End Date Reji Castro MD [address] [place] [address] PCP - General Adolescent Medicine 10/02/22 documented as of this encounter
--- OUTSIDE RECORDS SUMMARY | 2025-05-24 09:11 | XMS_ITS | Encounter Summary ---
Author Organization [employer] ([place], [place], [place], [place]) Address [address] [place] [address] Care Team Providers Care Gate Agent Name Role Phone Reji Castro MD Primary Care Provider + [phone] Encounter Details Date Type Department Care Team (Late st Contact Info) Description 08/15/2021 Transcribed Document [facility] [place] [facility] [place] [address] ProviderDelvin MD [address] [place] [phone] Social History Tobacco Use Types Packs/Day Years Used Date Smoking Tobacco: Never Assessed Comments Unknown Sex and Gender Information Value Date Recorded Sex Assigned at Not on file Legal Sex Female 4:32 PM CDT Gender Identity Not on file Sexual Orientation Not on file documented as of this encounter Miscellaneous Notes * Cerner Conversion Note - Historical ProviderMD - 08/15/2021 12:49 PM CDT Patient: IRINA [...] Hold home meds SSI #Depression Celexa #Pain [place]ont 10 mg every 6 hours as needed [...] levothyroxine, 25 mcg= 1 Tab, Oral, Daily Beaumont 10 mg-325 mg oral tablet, 1 Tab, [...] # 0.58 x10(3)/uL (Low) 08/14/2021 16:02 EDT [place] % 7.1 % 08/15/2021 03:42 EDT [place] % 7.9 % 08/14/2021 16:02 EDT [place] # 0.50 K/uL 08/15/2021 03:42 EDT [place] # 0.53 K/uL 08/14/2021 16:02 EDT Eos [...] (Low) 08/14/2021 16:02 EDT Electronically signed by [facility], [facility] Conversion Surgical Services Director Cerner at 03/09/2023 8:47 PM CDT documented in this encounter Plan of Treatment Not on file documented as of this encounter Visit Diagnoses Not on filedocumented in this encounter Care Teams Gate Agent Relationship Specialty Start Date End Date Reji Castro MD [address] [place] [address] PCP - General Adolescent Medicine 10/02/22 documented as of this encounter
--- OUTSIDE RECORDS SUMMARY | 2025-05-24 09:12 | XMS_ITS | Encounter Summary ---
Author Organization [employer] ([place], [place], [place], [place]) Address [address] [place] [address] Care Team Providers Care Color Tester Name Role Phone Reji Castro MD Primary Care Provider + [phone] Encounter Details Date Type Department Care Team (Late st Contact Info) Description 08/11/2021 Transcribed Document [facility] [place] [facility] [place] [address] ProviderDelvin MD [address] [place] [phone] Social History Tobacco Use Types Packs/Day Years Used Date Smoking Tobacco: Never Assessed Comments Unknown Sex and Gender Information Value Date Recorded Sex Assigned at Not on file Legal Sex Female 4:32 PM CDT Gender Identity Not on file Sexual Orientation Not on file documented as of this encounter Miscellaneous Notes * Cerner Conversion Note - Historical ProviderMD - 08/11/2021 9:21 PM CDT Admission [...] Shower Equipment, Other: Bathtub Rail Cherri Webb RN - 08/11/2021 23:11 EDT General Info Arrived From : Home Mode of Arrival on Unit : Ambulatory Legal Guardian : Unaccompanied Legal Guardian : No Support Person/Patient Residential Plumber : Yes Support Person/Pt Rep Name : Urszula Aleman Family/Rep/Phys Notified of Admit : No Emergency Contact #1 : Urszula De La Garza Emergency Contact #1 Emergency Contact #1 Relationship : Daughter Emergency Contact #2 : Mariann aYdav Emergency Contact #2 Emergency Contact #2 Relationship : Daughter Chief Complaint : Pt presents to the ER reporting she was called for positive blood clutures which showed staph. Pt reports her port is infected. Currently on Omnicef. Pt has a mechanical valve. Has had 180 units of [facility] due to anemia[facility]. Information Obtained From : Patient Primary Language : Montenegrin Communication Barrier : None Legal Entity Controller Needed : No Cherri Webb RN - 08/11/2021 23:11 EDT Fall Risk Scales ABCs Fall Injury Risk Identification : Coagulation ABC Fall Injury Risk : Moderate to high injury risk MURRAY Hx Falls Immediate/Within 3 Months : No Murray Secondary Diagnosis : No MURRAY Use of Ambulatory Aid : None MURRAY IV Therapy or IV Access : Yes Murray Gait/Transferring : Normal, bedrest, immobile Murray Mental Status : Oriented to own ability Murray Fall Risk Score : 20 MURRAY Fall Scale Risk Level : 0-24 Low Risk Golden Fall Interventions : Adequate lighting, Assistive devices [...] Source : Stated Height Entry Format : Lignum Height, Feet : 5 ft(Converted to: 152 cm, 60 Inch) Height, Inches : 4 Inch(Converted to: 0 ft 4 Inch, 10.16 cm) Clinical Height : 162.56 cm Weight Source : Standing scale Weight Entry Format : Lignum Clinical Dosing Weight : 86.39 kg Weight, Pounds : 190 lb Weight, Ounces : 1 oz Body Surface Area (BSA) : 1.92 m2 Body Mass Index : 32.7 kg/m2 (HI) Chamberlain Body Weight : 54 kg Cherri Webb [...] Cherri Webb RN - 08/11/2021 23:11 EDT [place] Suicide Severity Rating Scale (C-SSRS) CSSRS Past [...] Items : Cell phone, Other: Cell Phone Certified Home Health Aide Personal Items Disposition : Bedside Cherri Webb RN - 08/11/2021 23:11 EDT documented in this encounter Plan of Treatment Not on file documented as of this encounter Visit Diagnoses Not on filedocumented in this encounter Care Teams Color Tester Relationship Specialty Start Date End Date Reji Castro MD [address] [place] [address] PCP - General Adolescent Medicine 10/02/22 documented as of this encounter
--- OUTSIDE RECORDS SUMMARY | 2025-05-24 09:12 | XMS_ITS | Encounter Summary ---
Author Organization [employer] ([place], [place], [place], [place]) Address [address] [place] [address] Care Team Providers Care Handle Bar Assembler Name Role Phone Reji Castro MD Primary Care Provider + [phone] Encounter Details Date Type Department Care Team (Late st Contact Info) Description 08/14/2021 Transcribed Document [facility] [place] [facility] [place] [address] ProviderDelvin MD [address] [place] [id number] Social History Tobacco Use Types Packs/Day Years Used Date Smoking Tobacco: Never Assessed Comments Unknown Sex and Gender Information Value Date Recorded Sex Assigned at Not on file Legal Sex Female 4:32 PM CDT Gender Identity Not on file Sexual Orientation Not on file documented as of this encounter Miscellaneous Notes * Cerner Conversion Note - Delvin ProviderMD - 08/14/2021 7:45 AM CDT [facility] Main OR Preop Summary Primary Physician: NENA PEARSON MD-[facility] Finalized Date/Time: 08/14/21 09:52:23 Pt. Name: IRINA TAMAYO D.O.B./Sex: 1965 Female Med Rec #: [id number] Physician: VINCE BELLO MD Financial #: [id number] Pt. Type: I Room/Bed: 454/1 Admit/Disch: 08/11/21 21:21:00 - Institution: [facility] PreOp Case Times Entry 1 In Preop 08/14/21 06:28:00 Ready for Holding n/a Room Patient Ready for 08/14/21 06:46:00 Surgery Patient Out of Preop 08/14/21 07:32:00 Patient Out of n/a Holding Room Last Modified By: Charan Dutton Rn 08/14/21 09:52:22 [facility] PreOp Case Times Audit 08/14/21 09:52:22 [employer]: [id number] Modifier: [id number] <+> 1 Patient Out of Preop Finalized By: Charan Dutton, Rn Document Signatures Signed By: Charan Dutton Rn 08/14/21 09:52 documented in this encounter Plan of Treatment Not on file documented as of this encounter Visit Diagnoses Not on filedocumented in this encounter Care Teams Handle Bar Assembler Relationship Specialty Start Date End Date Reji Castro MD [address] [place] [address] PCP - General Adolescent Medicine 10/02/22 documented as of this encounter
--- OUTSIDE RECORDS SUMMARY | 2025-05-24 09:12 | XMS_ITS | Encounter Summary ---
Author Organization [employer] ([place], [place], [place], [place]) Address [address] [place] [address] Care Team Providers Care Software Engineer Name Role Phone Reji Castro MD Primary Care Provider + [phone] Encounter Details Date Type Department Care Team (Late st Contact Info) Description 08/11/2021 Transcribed Document [facility] [place] [address] [place] [address] ProviderDelvin MD [address] [place] [address] Social History Tobacco Use Types Packs/Day Years [...] filedocumented in this encounter Care Teams Software Engineer Relationship Specialty Start Date End Date Reji Castro MD [address] [place] [address] PCP - General Adolescent Medicine 10/02/22 documented as of this encounter
--- OUTSIDE RECORDS SUMMARY | 2025-05-24 09:12 | XMS_ITS | Encounter Summary ---
Author Organization [employer] ([place], [place], [place], [place]) Address [address] [place] [address] Care Team Providers Care Analytics Analyst Name Role Phone Reji Castro MD Primary Care Provider + [phone] Encounter Details Date Type Department Care Team (Late st Contact Info) Description 08/14/2021 Transcribed Document [facility] [place] Family [place] [facility] [place] [address] ProviderDelvin MD [address] [place] [phone] Social History Tobacco Use Types Packs/Day Years [...] Performed On: 08/15/2021 8:03 EDT by OLI MORRIS, Rebeca Clinical Interventions Clarify Drug Order : Yes [...] filedocumented in this encounter Care Teams Analytics Analyst Relationship Specialty Start Date End Date Reji Castro MD [address] [place] [address] PCP - General Adolescent Medicine 10/02/22 documented as of this encounter
--- OUTSIDE RECORDS SUMMARY | 2025-05-24 09:12 | XMS_ITS | Encounter Summary ---
Author Organization [employer] ([place], [place], [place], [place]) Address [address] [place] [address] Care Team Providers Care Quality Assurance Manager Name Role Phone Reji Castro MD Primary Care Provider + [phone] Encounter Details Date Type Department Care Team (Late st Contact Info) Description 08/20/2021 Transcribed Document [facility] [place] [facility] [place] [address] ProviderDelvin MD [address] [place] [phone] Social History Tobacco Use Types Packs/Day Years Used Date Smoking Tobacco: Never Assessed Comments Unknown Sex and Gender Information Value Date Recorded Sex Assigned at Not on file Legal Sex Female 4:32 PM CDT Gender Identity Not on file Sexual Orientation Not on file documented as of this encounter Miscellaneous Notes * Cerner Conversion Note - Delvin ProviderMD - 08/20/2021 1:33 PM CDT On Going Discharge Planning Entered On: 08/20/2021 13:35 EDT Performed On: 08/20/2021 13:33 EDT by MADINA LOVETT RN - Nursing ManagerFastener Sewing Machine Operator Progress Note Discharge Arrangements : Patient Post-Acute Information Patient Name: IRINA ATMAYO Gender: Female : [birth year] Age: 56 Years [...] Rounds? : Yes MADINA LOVETT RN - Nursing Manager - 08/20/2021 13:33 EDT Narrative Progress Note Narrative Progress Note : RRS Low Boost 5 Day 07/30 Patient was admitted for staph infection and port removal. She had a new port placed on 08/19. Patient needs to remain inpatient until her coumadin is at a therapeutic level per at [facility]. Patient will need IV rocephin until 09/08. Patient will need home health and says she has used [facility] in the past. CM will [...] is at a therapeutic level per at [facility]. Waiting on culture results for final abx plan. May need IV abx at home via port. Patient will need home health and lvies in [place]. [facility] home [facility] is a possibility. MADINA LOVETT RN - Nursing Manager - 08/19/21 15:40:22 RRS Low Boost 5 [...] will need home health and lives in [place]. [facility] home health is a possibility. CM will continue to follow. DCP: MADINA LOVETT RN - Nursing Manager - 08/18/21 15:47:49 (late entry from [...] and send referrals as appropriate. JULIO STEWART, RN-Nursing Manager ED - 08/18/21 10:38:39 MADINA LOVETT, RN - Nursing Manager - 08/20/2021 13:33 EDT Electronically signed by Lanny [facility] Conversion Core Stacker Cerner at 03/09/2023 8:49 PM CDT documented in this encounter Plan of Treatment Not on file documented as of this encounter Visit Diagnoses Not on filedocumented in this encounter Care Teams Quality Assurance Manager Relationship Specialty Start Date End Date Reji Castro MD [address] [place] [address] PCP - General Adolescent Medicine 10/02/22 documented as of this encounter
--- OUTSIDE RECORDS SUMMARY | 2025-05-24 09:12 | XMS_ITS | Encounter Summary ---
Author Organization [employer] ([place], [place], [place], [place]) Address [address] [place] [address] Care Team Providers Care Financing Analyst Name Role Phone Reji Castro MD Primary Care Provider + [phone] Encounter Details Date Type Department Care Team (Late st Contact Info) Description 08/26/2021 Transcribed Document [facility] [place] [address] ProviderDelvin MD [address] [place] [phone] Social History Tobacco Use Types Packs/Day Years [...] cefTRIAXone: 2 Gram, 100 mL/Hr, IV Piggyback, [id number] diphenhydrAMINE: 25 mg, Oral, Q6H, PRN: Itching [...] Oral, BID cefTRIAXone 2 Gram, IV Piggyback, [id number] citalopram 20 mg tab 40 mg 2 [...] Bioprosthetic mitral valve replacement / SNOMED CT 097570068 / Confirmed Chronic kidney disease / SNOMED CT 7809167812 / Confirmed COPD - Chronic obstructive pulmonary disease / SNOMED CT 027368014 / Confirmed History of obstructive sleep apnea / IMO 92739938 / Confirmed HLD - Hyperlipidemia / SNOMED CT 984381072 / Confirmed HTN - Hypertension / SNOMED CT 7364083917 / Confirmed Canceled: Atrial fibrillation / SNOMED CT 81522378, Active Problems (25) AIHA (autoimmune hemolytic anemia) [...] L 26.6 (AUG 24) L 26.0 (AUG 02) Plt L 152 (OCT 05) 180 (OCT 04) 194 (AUG 03) 181 (AUG 02) Na 138 (AUG 05) 140 (AUG 04) 137 (AUG 03) 139 (AUG 02) K 4.0 (AUG 05) 4.1 (AUG 04) 3.9 (AUG 03) 3.8 (AUG 02) Cl L 99 (AUG 05) L 99 (AUG 04) L 99 (AUG 03) L 101 (AUG 23) CO2 H 35 (AUG 05) H 37 (AUG 04) H 35 (AUG 03) H 34 (AUG 02) BUN H 23 (AUG 05) 22 (AUG 04) H 23 (AUG 03) 19 (AUG 02) Cr H 1.30 (AUG 05) H 1.40 (AUG 25) H 1.40 (AUG 24) H 1.40 (AUG 23) Glu R 103 (AUG 26) 91 (AUG 04) H 120 (AUG 03) H 118 (AUG 23) Ca 9.4 (AUG 05) 9.7 (AUG 25) 9.4 (AUG 03) 9.1 (AUG 23) Lactic .93 (AUG 12) L .73 (AUG 11) PT H 22.4 (AUG 05) H 19.3 (AUG 04) H 18.8 (AUG 03) H 18.4 (AUG 02) INR H 2.2 (AUG 26) H 1.9 (AUG 25) H 1.8 (AUG 03) H 1.8 (AUG 23) PTT H 39.6 [...] GFR adjust medications. Electronically signed by Lanny, [facility] Conversion Embalmer Assistant Cerner at 03/09/2023 8:56 PM CDT documented in this encounter Plan of Treatment Not on file documented as of this encounter Visit Diagnoses Not on filedocumented in this encounter Care Teams Financing Analyst Relationship Specialty Start Date End Date Reji Castro MD [address] [place] [address] PCP - General Adolescent Medicine 10/02/22 documented as of this encounter
--- OUTSIDE RECORDS SUMMARY | 2025-05-24 09:12 | XMS_ITS | Encounter Summary ---
Author Organization [employer] ([place], [place], [place], [place]) Address [address] [place] [address] Care Team Providers Care Deck Mechanic Name Role Phone Reji Castro MD Primary Care Provider + [phone] Encounter Details Date Type Department Care Team (Late st Contact Info) Description 08/19/2021 Transcribed Document [facility] [place] [facility] [place] [address] ProviderDelvin MD [address] [place] [phone] Social History Tobacco Use Types Packs/Day Years [...] her port could not be accessed. Her senior ui software engineer aspirated fluid from the port that [...] On 08/08 she presented to a [facility] after she developed severe CHEUNG and myalgias w/o prominent fever. She was subsequently contacted and told to report to [facility] because she had + blood cutures concerning for an infected portacath +/- PVE. 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 Integumentary: Warm, [place]. Neurologic: Alert, Oriented, No focal deficits. Psychiatric: [...] on filedocumented in this encounter Care Teams Deck Mechanic Relationship Specialty Start Date End Date Reji Castro MD [address] [place] [address] PCP - General Adolescent Medicine 10/02/22 documented as of this encounter
--- OUTSIDE RECORDS SUMMARY | 2025-05-24 09:12 | XMS_ITS | Encounter Summary ---
Author Organization [facility] ([place], [place], [place], [place]) Address [address] [place] [address] Care Team Providers Care Bottling Room Worker Name Role Phone Reji Castro MD Primary Care Provider + [phone] Encounter Details Date Type Department Care Team (Late st Contact Info) Description 08/11/2021 Transcribed Document [facility] [place] [address] ProviderDelvin MD [address] [place] [address] [phone] Social History Tobacco Use Types Packs/Day Years [...] - 08/11/2021 22:44 EDT Electronically signed by Lanny [facility] Conversion Eligibility Technician Cerner at 03/09/2023 8:55 PM CDT documented in this encounter Plan of Treatment Not on file documented as of this encounter Visit Diagnoses Not on filedocumented in this encounter Care Teams Bottling Room Worker Relationship Specialty Start Date End Date Reji Castro MD [address] [place] [address] PCP - General Adolescent Medicine 10/02/22 documented as of this encounter
--- OUTSIDE RECORDS SUMMARY | 2025-05-24 09:12 | XMS_ITS | Encounter Summary ---
Author Organization [employer] ([place], [place], [place], [place]) Address [address] [place] [address] Care Team Providers Care Rail Director Name Role Phone Reji Castro MD Primary Care Provider + [phone] Encounter Details Date Type Department Care Team (Late st Contact Info) Description 08/26/2021 Transcribed Document [facility] [place] Family Medicine Counts include 234 beds at the [facility] [address] ProviderDelvin MD [address] [place] [place] [address] [id number] Social History Tobacco Use Types Packs/Day Years Used Date Smoking Tobacco: Never Assessed Comments Unknown Sex and Gender Information Value Date Recorded Sex Assigned at Not on file Legal Sex Female 4:32 PM CDT Gender Identity Not on file Sexual Orientation Not on file documented as of this encounter Miscellaneous Notes * Cerner Conversion Note - Historical ProviderMD - 08/26/2021 1:44 PM CDT Patient: IRINA TAMAYO Age: 56 years Sex: Female : 1965 Associated Diagnoses: None Author: FAIZA YOUSSEF, DO Subjective pt seen and examined / feeling better today chest pain still present [...] cefTRIAXone: 2 Gram, 100 mL/Hr, IV Piggyback, [id number] diphenhydrAMINE: 25 mg, Oral, Q6H, PRN: Itching [...] Oral, BID cefTRIAXone 2 Gram, IV Piggyback, [id number] citalopram 20 mg tab 40 mg 2 [...] Bioprosthetic mitral valve replacement / SNOMED CT 964566873 / Confirmed Chronic kidney disease / SNOMED CT 2970439166 / Confirmed COPD - Chronic obstructive pulmonary disease / SNOMED CT 239458275 / Confirmed History of obstructive sleep apnea / IMO [id number] / Confirmed HLD - Hyperlipidemia / SNOMED CT 141021700 / Confirmed HTN - Hypertension / SNOMED CT 5854031577 / Confirmed Canceled: Atrial fibrillation / SNOMED CT 61823781, Active Problems (25) AIHA (autoimmune hemolytic anemia) [...] 11:00) 71 (AUG 25 14:19) 85 (AUG 26:31) SpO2 96 (AUG 26:) 96 (AUG 25:19) 100 (AUG 25 18:46) General: Alert and [...] 29.0 \ Radiology Results (Last 48 hours) [id number] -- 08/11/2021 21:21 CR Chest 1 Vw [...] 26.6 (AUG 24) L 26.0 (AUG 23) Plt L 152 (AUG 26) 180 (AUG 25) 194 (AUG 24) 181 (AUG 23) Na 138 (AUG 26) 140 (AUG 25) 137 (AUG 24) 139 (AUG 02) K 4.0 (AUG 26) 4.1 (AUG 25) 3.9 (AUG 24) 3.8 [...] Hold home meds SSI Depression Celexa Pain Tiger 10 mg every 6 hours as needed CODE STATUS. Full code Dispo: H/H stable, neg trops, clinically better need therapeutic inr for discharge, pharm managing. hopefully in am Time spent 26 minutes documented in this encounter Plan of Treatment Not on file documented as of this encounter Visit Diagnoses Not on filedocumented in this encounter Care Teams Rail Director Relationship Specialty Start Date End Date Reji Castro MD [address] [place] [address] PCP - General Adolescent Medicine 10/02/22 documented as of this encounter
--- OUTSIDE RECORDS SUMMARY | 2025-05-24 09:12 | XMS_ITS | Data Portability ---
Author Organization [facility], [facility] Address [address] [facility] [address] [place] [address] Assessment No assessment recorded. Plan of Treatment Reminders Order Date Submit Date Provider Last Modified By Organization Details Last Modified Time Details Appointments None recorded. Lab glucose, fingersti ck, blood 2016 017 [facility], [address] [place] [address], [phone], 7 10:48:08 hemoglobi n A1C, fingersti ck 2016 017 [facility], [address] [place] [address], [address], 7 10:48:09 glucose, fingersti ck, blood 2016 017 [facility], [address] [place] [address], [address], 7 13:30:39 hemoglobi n A1C, fingersti ck 2016 017 [facility], [address] [place] [address], [id number], 7 13:30:39 lipid panel, serum 2016 017 [facility], [address] [place] [address], [address], 7 15:04:21 hepatic function panel, serum 2016 017 [facility], [address] [place], [address], 7 14:57:41 microalbu min/creat inine, mass ratio, urine 2016 017 [facility], [address] [place], [address], 7 15:42:42 Referral diabetic ophthalmo logy referral - Uncontrol led type 2 diabetes evaluate for diabetic retinopat hy 2016 017 [email or web address] Jen Ortiz MD, [address] [facility] , [address] [place] [address], [address], 7 11:05:25 Procedures None recorded. Surgeries None recorded. Imaging None recorded. Medication Orders metformin 500 mg tablet 2016 017 [facility], [address] [place], [address], 7 10:48:16 Levemir U-100 Insulin 100 unit/mL subcutane ous solution 2016 017 [facility], [address] [place], [address], 7 10:48:15 Novolin R Regular U-100 Insulin 100 unit/mL injection solution 2016 017 [facility], [address] [place], [address], 7 11:02:41 Januvia 100 mg tablet 2016 017 [facility], [address] [place], [address], 7 10:48:15 metformin 500 mg tablet 2016 017 [facility], [address] [place], [address], 7 13:30:41 Januvia 100 mg tablet 2016 017 [facility], [address] [place], [address], 7 13:30:46 Levemir U-100 Insulin 100 unit/mL subcutane ous solution 2016 017 [email or web address], [address] [place], [address], 7 10:23:03 Patient TargetsNo targets recorded. Patient Instructions Encounter Date Encounter Id Patient Instructions Last Modified By Organization Details Last Modified Time 01/12/2017 [id number] Further increase Levemir to 30 units every a.m. and 30 units every p.m. Continue metformin 500 mg Pills twice daily with meals Continue Januvia 100 mg Dietary carbohydrate consistency and restriction and not to exceed 45 g of carbohydrate per meal and 15-30 g per snack if needed. Fasting labs today wayoub Not available 01/12/2017 13:30:29 05/20/2017 [id number] Further increase Levemir to 60 units every [...] finge rstic k HbA1c% 9.8 Not Available [facility] [address] [place], [address], 05/20/2017 10:29:00 05/20/20 17 05/20/2017 hemog lobin A1C, finge rstic k [place] Recomm ended Ranges Not Available [facility] [address] [place] [address], [address], 05/20/2017 10:29:00 05/20/20 17 05/20/2017 hemog lobin A1C, finge rstic k Normal 4.3 - 5.7 Not Available [facility] [address] [place] [address], [address], 05/20/2017 10:29:00 05/20/20 17 05/20/2017 hemog lobin A1C, finge rstic k Increased Risk 5.7 - 6.4 Not Available [facility] [address] [place] [address], [address], 05/20/2017 10:29:00 05/20/20 17 05/20/2017 hemog lobin A1C, finge rstic k Diabetic > 6.5 Not Available [facility] [address] [place] [address], [address], 05/20/2017 10:29:00 05/20/20 17 05/20/2017 gluco se, finge rstic k, blood glucose, fingerstick 215 mg/dL 70 - 100 Not Available [facility] [address] [place] [address], [address], 05/20/2017 10:28:39 01/12/20 17 01/12/2017 hemog lobin A1C, finge rstic k HbA1c% 7.7 Not Available [facility] [address] [place] [address], [address], 01/12/2017 13:17:20 01/12/20 17 01/12/2017 hemog lobin A1C, finge rstic k [place] [employer] Recomm ended Ranges Not Available [facility] [address] [place], [address], 01/12/2017 13:17:20 01/12/20 17 01/12/2017 hemog lobin A1C, finge rstic k Normal 4.3 - 5.7 Not Available [facility] [address] [place], [address], 01/12/2017 13:17:20 01/12/20 17 01/12/2017 hemog lobin A1C, finge rstic k Increased Risk 5.7 - 6.4 Not Available [facility] [address] [place] [address], [address], 01/12/2017 13:17:20 01/12/20 17 01/12/2017 hemog lobin A1C, finge rstic k Diabetic > 6.5 Not Available [facility] [address] [place] [address], [address], 01/12/2017 13:17:20 01/12/20 17 01/12/2017 gluco se, finge rstic k, blood glucose, fingerstick 211 mg/dL 70 - 100 Not Available [facility] [address] [place] [address], [address], 01/12/2017 13:17:00 01/12/20 17 01/12/2017 hepat ic funct ion panel , serum AST 43 U/L 0-32 high Not Available [facility] [address] [place] [address], [address], 01/12/2017 15:04:22 01/12/20 17 01/12/2017 hepat ic funct ion panel , serum ALT 39 U/L 0-33 high Not Available [facility] [address] [place] [address], [address], 01/12/2017 15:04:22 01/12/20 17 01/12/2017 hepat ic funct ion panel , serum alkaline phosphatase 77 U/L 35-105 normal Not Available [facility] [address] [place] [address], [address], 01/12/2017 15:04:22 01/12/20 17 01/12/2017 hepat ic funct ion panel , serum total protein 8.5 g/dL 6.4-8. 3 high Not Available [facility] [address] [place] [address], [address], 01/12/2017 15:04:22 01/12/20 17 01/12/2017 hepat ic funct ion panel , serum albumin 5.0 g/dL 3.5-5. 2 normal Not Available [facility] [address] [place] [address], [address], 01/12/2017 15:04:22 01/12/20 17 01/12/2017 hepat ic funct ion panel , serum bilirubin, total 0.6 mg/dL 0.1-1. 2 normal Not Available [facility] [address] [place] [address], [address], 01/12/2017 15:04:22 01/12/20 17 01/12/2017 hepat ic funct ion panel , serum bilirubin, direct <0.2 mg/dL 0.0-0. 3 normal Not Available [facility] [address] [place] [address], [address], 01/12/2017 15:04:22 01/12/20 17 01/12/2017 hepat ic funct ion panel , serum bilirubin, indirect - mg/dL _calc 0.0-1. 0 abnormal Unabl e to calcu late Indir ect Bilir ubin. Not Available [facility] [address] [place] [address], [address], 01/12/2017 15:04:22 01/12/20 17 01/12/2017 lipid panel , serum HDL cholesterol 33 mg/dL 66-242 low Not Available [facility] [address] [place] [address], [address], 01/12/2017 15:04:21 01/12/20 17 01/12/2017 lipid panel , serum triglyceride s 317 mg/dL 0-149 high TRIGL YCERI DE RANGE S ERIC L: < 150 BORDE RLINE HIGH: 150 - 199 HIGH: 200 - 499 VERY HIGH: > OR = 500 Not Available [facility] [address] [place] [address], [address], 01/12/2017 15:04:21 01/12/20 17 01/12/2017 lipid panel , serum cholesterol 167 mg/dL 0-199 normal DEMARCUS STERO L (TOTA L) RANGE S SENIA ABLE: < 200 BORDE RLINE : 200 - 239 HIGHE R RISK: > 239 Not Available [facility] [address] [place] [address], [address], 01/12/2017 15:04:21 01/12/20 17 01/12/2017 lipid panel , serum LDL cholesterol 71 mg/dL _calc 0-99 normal LDL DEMARCUS STERO L RANGE S OPTIM AL: < 100 NEAR/ ABOVE OPTIM AL: 100 - 129 BORDE RLINE HIGH: 130 - 159 HIGH: 160 - 189 VERY HIGH: > OR = 190 Not Available [facility] [address] [place] [address], [address], 01/12/2017 15:04:21 01/12/20 17 01/12/2017 micro album in/cr eatin ine, mass ratio , urine microalbumin , random <12 mg/L 0-19 normal Not Available [facility] [address] [place] [address], [address], 01/12/2017 15:42:42 01/12/20 17 01/12/2017 micro album in/cr eatin ine, mass ratio , urine creatinine,u r,random 18.24 mg/dL normal NO ERIC L RANGE ESTAB LISHE D FOR RANDO M URINE . Not Available [facility] [address] [place] [address], [address], 01/12/2017 15:42:42 01/12/20 17 01/12/2017 micro album [...] pplem ent 1,s24 -s27, 1996. Not Available [facility] [address], [place], [address], 01/12/2017 15:42:42 03/10/20 24 03/10/2024 XR, shoul sheldon, 2 or more view Erica [place] [facility] [address] [place] [address] Patirichard t Name: IRINA hall : 963 [...] Genevieve gonzales MD on 11:27 AM [email or web address] [facility] [place] [address] , [place], [address], 03/13/2024 12:32:32 03/10/20 24 03/10/2024 XR, elbow , 2 view [facility] [address] [place] [address] Patirichard t Name: IRINA hall : 961 Patirichard t Orderi ng Provid er: [facility] EXAM DATE: 2023 EXAM: XR RT ELBOW, [...] Genevieve gonzales MD on 11:28 AM [email or web address] [facility] [place] [address] , [place], [address], 03/13/2024 12:32:33 03/10/20 24 03/10/2024 XR, wrist , [facility] [address] [address] Patien t Name: IRINA Scott t : [...] gonzales MD on 024 11:28 AM [email or web address] [facility] [place] [address] , [place], [address], 03/13/2024 12:32:33 Result Notes Documentation Provider Name and Address Organization Details Recorded Time Xr, Shoulder, 2 Or More View : [facility] [place] [address] [place] [address] Patient Name: IRINA TAMAYO Patient : 1965 [...] MD IE DA SILVA PA-C [address] [place], [address], [facility] 03/13/2024 12:32:32 Xr, Elbow, 2 View : [facility] [address] [place] [address] Patient Name: IRINA TAMAYO Patient : 1965 [...] Baeza MD IE DA SILVA PA-C [address] [place], [address], [facility] 03/13/2024 12:32:33 Xr, Wrist, 2 View : [facility] [address] [place] [address] Patient Name: IRINA TAMAYO Patient : 1965 [...] in the right wrist. Interpreted By: Urbano Bazea MD IE DA SILVA PA-C [address] [place], [address], [facility] 03/13/2024 12:32:33 Problems Name Problem SNOMED Code Status Onset Date Resolution Date Notes Provider Name and Address Organization Details Recorded Time Uncontro lled type 2 diabetes mellitus 316151414 Active 2015 [facility] 6 17:33:59 Type 2 diabetes mellitus 40363349 Active 2015 From Automate d Load;Pro vider: Donna Rendon;St atus: Active Not Available [facility] 7 06:21:50 Thyroidi tis Active 2015 From Automate d Load;Pro vider: Uli Fox;Sta tus: Active Not Available [facility] 6 08:01:51 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 743079119 Completed 201501/21/2017 From Automate d Load;Pro vider: Uli Fox;Sta tus: Active JEN ORTIZ MD [address] [place] [address], [phone] [place] [address] 7 13:20:24 Disorder of nervous system due to type 2 diabetes mellitus 338801411 Active 2015 From Automate d Load;Pro vider: Donna Rendon;St atus: Active Not Available [facility] 6 08:01:51 Hypothyr oidism 33811953 Active 2015 From Automate d Load;Pro vider: Donna Rendon;St atus: Active Not Available [facility] 6 08:01:51 Hyperlip idemia 96757743 Active 2015 From Automate d Load;Pro vider: Donna Rendon;St atus: Active Not Available [facility] 6 08:01:51 Problem Notes None recorded. Procedures Surgical History Date Name Laterality Status Provider Name and Address Organization Details Recorded Time Cardiac Surgery completed [facility] 01/12/2017 13:15:08 Hernia repair w/mesh completed [facility] 01/12/2017 13:15:15 Ict Educator Surgery completed [facility] 01/12/2017 13:15:56 Imaging Results None recorded. Procedure Notes None recorded. Medical Equipment None Reported. Allergies Allergen ID Allergen Name Allergen Category Reaction Reaction Severity Criticality Documentation Date Start Date Code Code System Note Provider Name and Address Organization Details Recorded Time 307191 codeine medicatio n other Not available Not available 10/16/20162013 2670 RxNorm React ion: OTHER ; Comme nt: Heada junior;C reate d By: Charles barrera;Cr eated Date: 2013 2:31: 40 PM; Not Available [facility] 6 03:13:58 [id number] Rocephin medicatio n Not available Not available Not available 10/16/20162013 9449 RxNorm Comme nt: Creat ed By: Charles barrera;Cr eated Date: 2013 2:32: 27 PM; Not Available [facility] 6 03:13:58 034722 Buprenex medicatio n vomiting Not available Not available 10/16/20162013 23817 0 RxNorm React ion: VOMIT ING; Comme nt: Creat ed By: Charles barrera;Cr eated Date: 2013 2:30: 33 PM; Not Available [facility] 6 05:59:46 691072 Levaquin medicatio n Not available Not available Not available 10/16/20162013 27792 2 RxNorm Comme nt: INR;C reate d By: Charles barrera;Cr eated Date: 2013 2:32: 11 PM; Not Available [facility] 6 09:05:33 Medications Name Sig Start Date [...] Body mass index (BMI) Heart rate Systolic And Diastolic Provider Name and Address Organization Details Last Updated DateTime 01/12/2017 69277.3 g 162.56 cm 29.4 kg/m2 92 /min 122/62 mm[Hg] [facility] 01/12/2017 13:11:05 Date Recorded Body height Provider Name an d Address Organization Details Last Updated DateTime 01/21/2017 162.56 cm [facility] 01/21/2017 12:52:09 Date Recorded Body height Body mass index (BMI) Body weight Heart rate Systolic And Diastolic Provider Name and Address Organization Details Last Updated DateTime 05/20/2017 162.56 cm 30.2 kg/m2 38470.26 g 71 /min 100/68 mm[Hg] [facility] 05/20/2017 10:22:26 Social History None recorded. Functional Status None recorded. Mental Status None recorded. Family History Relationship Description Onset Age of this Age Resolved Age Notes LastModified by Organization Details LastModified Time Mother Cataract [email or web address] Not availab le 01/21/2017 12:54:54 Mother Diabetes mellitus [email or web address] Not available 01/21 12:55:12 Mother Lazy eye [email or web address] Not availab le 01/21/2017 12:55:30 Father Cataract [email or web address] Not availab le 01/21/2017 12:54:54 Father Diabetes mellitus [email or web address] Not available 01/21 12:55:12 Brother Diabetes mellitus [email or web address] Not available 01/21 12:55:12 Brother Lazy eye [email or web address] Not availa ble 01/21/2017 12:55:30 Brother Legal blindness [email or web address] Not available 01/21 12:55:38 Sister Diabetes mellitus [email or web address] Not available 01/21 12:55:12 Sister Lazy eye [email or web address] Not availab le 01/21/2017 12:55:30 Medical History Condition Response Diabetes Y Heart Problems Y Hypertension Y Lazy Eye Y Gynecological HistoryNo gynecological history recorded. Obstetrics History GPAL:G 0 P 0 0 0 0 Past Encounters Encounter ID Performer Location Encounter Start Date Encounter Closed Date Diagnosis/Indication Diagnosis SNOMED-CT Code Diagnosis ICD10 Code Diagnosis Note [id number] DONNA RENDON MD [facility] [address] [place] [address] 01/12/2017 12:52:33 01/15/2017 11:05:25 Uncontrolled type 2 diabetes mellitus 534235118 E11.65 A1c in the office today elevated [...] 0.84 GFR of 80 Referral to ophthalmol oghillary for diabetic dilated eye exam.Fasti ng lipid profile, liver function test and urinary ACR today [id number] JEN ORTIZ MD [facility] [address] [place] [address] ,[address] [place] [address] 01/21/2017 12:38:42 01/22/2017 08:17:23 Uncontrolled type 2 diabetes mellitus 561144625 E11.65 I discussed diabetes with this patient. I discussed the importance of sugar control for reducing risk of diabetic complicati ons in the eyes. I recommened they follow up with their PCP/endocr inologist for continue surgar evaluation /managemen t. Also discussed importance of cardiovasc ular risk reduction. Call with changing/f luxuating vision. Amblyopia 375364654 H53. 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 dietary indiscreti on, fasting hyperglyce lelie and insulin resistance .Increase Levemir to 60 units every a.m. and 60 units every bedtime. Increase Humulin R to 40 units 3 times daily 30 minutes before meals.Bloo d glucose 4 times daily before meals and at bedtime Continue metformin and [facility] Creatinine of 0.84 GFR of 80Recently seen by her ophthalmol [facility].Up-to -date with diabetic foot exam with bilateral [...] regimen changes, Glucocorti coid Induced hyperglyce ellie.. [id number] TOMMIE DA SILVA PA-C [facility] [address] [place] [address] 03/10/2024 10:43:50 03/10/2024 12:53:46 Carpal tunnel syndrome of right wrist 3575277431 58365 G56.01 Assessment : Adhesive capsulitis of the [...] use. Adhesive c apsulitis of right shoulder 6521896132 42683 M75.01 Health Concerns Section Related Observation LastModified by Organization Detai ls LastModified Time None Recorded Concern Status LastModified by Organization Details LastModified Time None Recorded Advance Directives Directive None Recorded Payers Insurance Date Sequence Insurance Name Policy Number Policy Edwards Covered Member ID Edwards Member ID Guarantor Name 06/01/2024 1 [place]MEDICARE REPLACEMENT HMO) [id number] Irina Tamayo [id number] Irina Tamayo 06/02/2024 2 MEDICAID-[facility] CHO[facility] - FFS/TRADITIONA L Irina Tamayo [id number] Irina Tamayo 01/26/2019 1 *SELF PAY* Geovanna Tamayo 03/10/2024 1 [place] Irina Tamayo [id number] Irina Tamayo Notes Date Note Type Note [...] review: no Hypoglycemia: none DONNA RENDON MD [address] [place] [address], [address], [facility] 01/12/2017 13:35:43 01/21/2017 text/html dec vision odno slltos has not changeds in a long time.reviewed diabetic labs. JEN ORTIZ MD [address] [place] [address], [address], [facility] 01/21/2017 14:06:12 05/20/2017 text/html 51-year-old [...] review: no Hypoglycemia: none DONNA RENDON MD [address] [place] [address], [address], [facility] 05/20/2017 10:48:20 03/10/2024 text/html HAND [...] pain is not well-controlled at this timePAIN: 6 /10X-RAY: LCMRI:PT: noINJECTION: no TOMMIE DA SILVA PA-C [address] [place], [address], [facility] 2024 15:42:34 OBGyn Episode No OBEpisode recorded.
--- OUTSIDE RECORDS SUMMARY | 2025-05-24 09:12 | XMS_ITS | Encounter Summary ---
Author Organization [employer] ([place], [place], [place], [place]) Address [address] [place] [address] Care Team Providers Care Can Cutter Name Role Phone Reji Castro MD Primary Care Provider + [phone] Encounter Details Date Type Department Care Team (Late st Contact Info) Description 08/25/2021 Transcribed Document [facility] [place] [facility] [place] [address] ProviderDelvin MD [address], [place] [phone] Social History Tobacco Use Types Packs/Day Years [...] Patient stated she has chest pain, called MARKETING MGR Team, called md. Vitals signs stable. Put zoll on patient. Stat ekg ordered, cxr and troponin. Patient transferred to [facility]. WILLIAMS HANEY RN - 08/25/2021 11:02 EDT documented in this encounter Plan of Treatment Not on file documented as of this encounter Visit Diagnoses Not on filedocumented in this encounter Care Teams Can Cutter Relationship Specialty Start Date End Date Reji Castro MD [address] [place] [id number] PCP - General Adolescent Medicine 10/02/22 documented as of this encounter
--- OUTSIDE RECORDS SUMMARY | 2025-05-24 09:12 | XMS_ITS | Encounter Summary ---
Author Organization [employer] ([place], [place], [place], [place]) Address [address] [place] [address] Care Team Providers Care Cutter Finisher Name Role Phone Reji Castro MD Primary Care Provider + [phone] Encounter Details Date Type Department Care Team (Late st Contact Info) Description 08/15/2021 Transcribed Document [facility] [place] [facility] [address] ProviderDelvin MD [address] [place] [address] [phone] Social History Tobacco Use Types Packs/Day Years [...] Warfarin HPI: 56 y/o F presenting to [facility] with history of COPD, atrial [...] mg, 14 mL, 128 mL/Hr, IV Piggyback, [id number]. docusate-senna: 1 Tab, Oral, BID. famotidine: 20 [...] HB L 7.9 (AUG 15) L 8.0 (JUL 23) L 8.1 (AUG 13) L 8.5 (AUG 13) HCT L 26.7 (AUG 15) L 27.2 (JUL 23) L 26.9 (AUG 13) L 28.7 (AUG 13) Plt 197 (JUL 24) 210 (SEP 23) 206 (JUL 22) 197 (AUG 13) Na 137 (AUG 15) L 135 (AUG 13) 136 (AUG 13) L 134 (AUG 12) K 4.4 (SEP 24) 4.2 (SEP 22) 4.5 (SEP 22) 3.6 (SEP ) Cl 104 (JUL 24) 102 (AUG 13) 103 (AUG 13) L 98 (AUG 12) CO2 27 (JUL 24) 29 (SEP 22) 30 (SEP ) 29 (AUG 12) BUN H 28 (JUL 24) H 35 (AUG 13) H 50 (AUG 13) H 69 (AUG 12) Cr H 1.80 (JUL 24) H 1.80 (AUG 13) H 1.60 (AUG [...] questions. Thank you, Andrea Moraes, PharmD PGY1 [employer] Pager: [phone], Ext. [phone] documented in this encounter Plan of Treatment Not on file documented as of this encounter Visit Diagnoses Not on filedocumented in this encounter Care Teams Cutter Finisher Relationship Specialty Start Date End Date Reji Castro MD [address] [place] [id number] PCP - General Adolescent Medicine 10/02/22 documented as of this encounter
--- OUTSIDE RECORDS SUMMARY | 2025-05-24 09:12 | XMS_ITS | Encounter Summary ---
Author Organization [employer] ([place], [place], [place], [place]) Address [address] [place] [address] Care Team Providers Care Philosophy Faculty Member Name Role Phone Reji Saldaña MD Primary Care Provider + [phone] Encounter Details Date Type Department Care Team (Late st Contact Info) Description 08/14/2021 Transcribed Document [facility] [place] [facility] [place] [address] ProviderDelvin MD [address] [place] [address] [phone] Social History Tobacco Use Types Packs/Day Years [...] On: 08/14/2021 16:00 EDT by ALFREDO SEQUEIRA, JEREMIAH-Medical Editor Initial Assessment I Previously Documented Living Environment [...] Patient's Home Caregiver Medical Durable Power of Tank House Operator Helper Name : No Legal Guardian : No ALFREDO SEQUEIRA RN-Medical Editor - 08/15/2021 8:27 EDT Initial Assessment II Sensory and Motor Deficits : None Current Home Treatments and Equipment : None ALFREDO SEQUEIRA RN-Medical Editor - 08/15/2021 8:27 EDT Discharge Needs I Anticipated Discharge Date : 08/16/2021 EDT Anticipated Discharge To, CM : Home with home health, Home with infusion therapy Current Home Treatment/Equipment : Current Home Treatment/Equipment No qualifying data available. Post Acute/Home Treatments : None Documentation Status Complete : Yes ALFREDO SEQUEIRA RN-Medical Editor - 08/15/2021 8:27 EDT Discharge Needs II Professional Skilled Services : Professional Skilled Services No qualifying data available. Needs Assistance with Transportation : No Discharge Options Discussed with Patient : DME, Home Health, Short term rehabilitation ALFREDO SEQUEIRA RN-Medical Editor - 08/15/2021 8:27 EDT Narrative Note Historical Narrative Note : rrs low boost 5 patient was admitted for staph infection /port removal . consults to neph, surg,ID. CHUCHO negative . patient 56 years old lives alone and is independent. patient face sheet address is wrong now address is : [email or web address] . [employer]. patient denied need for dme. possible need for hh she thinks [facility] is the only one in her area. patient states she might need 4 weeks IV abx . patient is agreeable to hh and iv abx at home . cm will follow ALFREDO SEQUEIRA RN-Medical Editor - 08/15/21 08:39:27 Narrative Note : rrs low boost 5 patient was admitted for staph infection /port removal . consults to neph, surg,ID. CHUCHO negative . patient 56 years old lives alone and is independent. patient face sheet address is wrong now address is : [address] [employer] patient denied need for dme. possible need for hh she thinks [facility] is the only one in her area. patient states she might need 4 weeks IV abx . patient is agreeable to hh and iv abx at home . family will transport . cm will follow ALFREDO SEQUEIRA, RN-Medical Editor - 08/15/2021 8:40 EDT Electronically signed by Lanny [facility] Conversion Checkroom Chief Cerner at 03/09/2023 8:51 PM CDT documented in this encounter Plan of Treatment Not on file documented as of this encounter Visit Diagnoses Not on filedocumented in this encounter Care Teams Philosophy Faculty Member Relationship Specialty Start Date End Date Reji Saldaña MD [address] [place] [address] PCP - General Adolescent Medicine 10/02/22 documented as of this encounter
--- OUTSIDE RECORDS SUMMARY | 2025-05-24 09:12 | XMS_ITS | Encounter Summary ---
Author Organization [employer] ([place], [place], [place], [place]) Address [address] [place] [address] Care Team Providers Care Size Worker Name Role Phone Reji Castro MD Primary Care Provider + [phone] Encounter Details Date Type Department Care Team (Late st Contact Info) Description 08/20/2021 Transcribed Document [facility] [place] Family [place] [facility] [place] [address] ProviderDelvin MD [address] [place] [phone] Social History Tobacco Use Types Packs/Day Years [...] Performed On: 08/20/2021 5:00 EDT by Eula Tinoco, Parts Runner-Health Unit Coord Height and Weight, Routine Routine Weight Source : Standing scale Routine Weight Entry Format : [place] Routine Weight, Pounds : 204 lb Routine Weight, Ounces : 7 oz Routine Weight Calculation : 92.93 kg Height Source : Stated Height Entry Format : [place] Height, Feet : 5 ft Height, Inches : 4 Inch Clinical Height : 162.56 cm Body Surface Area (BSA), Routine : 1.98 m2 Body Mass Index (BMI), Routine : 35.17 kg/m2 Eula Tinoco, Parts Runner-Health Unit [facility] - 08/20/2021 6:41 EDT Electronically signed by Lanny, [facility] Conversion Supervisor [employer] Cerner at 03/09/2023 8:44 PM CDT documented in this encounter Plan of Treatment Not on file documented as of this encounter Visit Diagnoses Not on filedocumented in this encounter Care Teams Size Worker Relationship Specialty Start Date End Date Reji Castro MD [address] [place] [id number] PCP - General Adolescent Medicine 10/02/22 documented as of this encounter
--- OUTSIDE RECORDS SUMMARY | 2025-05-24 09:12 | XMS_ITS | Encounter Summary ---
Author Organization [employer] ([place], [place], [place], [place]) Address [address] [place] [address] Care Team Providers Care Design Drafter Chief Name Role Phone eRji Castro MD Primary Care Provider + [phone] Encounter Details Date Type Department Care Team (Late st Contact Info) Description 08/20/2021 Transcribed Document [facility] [place] [facility] [place] [address] ProviderDelvin MD [address] [place] [address] [phone] Social History Tobacco Use Types Packs/Day Years [...] Clyde Corral PA-C given he held it 2/ procedure on 08/14 d/w Dr. Cuevas: original [...] cefTRIAXone: 2 Gram, 100 mL/Hr, IV Piggyback, [id number]. citalopram: 40 mg, Oral, Daily. diphenhydrAMINE: 50 [...] 0.4 (SEP 24) 0.4 (SEP ) 0.5 (SEP ) PTN 6.8 (AUG 18) 7.0 (AUG 15) [...] questions. Thank you, Andrea Moraes, PharmD PGY1 [employer] Installer Pager: [phone], Ext. [phone] documented in this encounter Plan of Treatment Not on file documented as of this encounter Visit Diagnoses Not on filedocumented in this encounter Care Teams Design Drafter Chief Relationship Specialty Start Date End Date Reji Castro MD [address] [place] [id number] PCP - General Adolescent Medicine 10/02/22 documented as of this encounter
--- OUTSIDE RECORDS SUMMARY | 2025-05-24 09:12 | XMS_ITS | Encounter Summary ---
Author Organization [employer] ([place], [place], [place], [place]) Address [address] [place] [address] Care Team Providers Care Pet Caretaker Name Role Phone Reji Castro MD Primary Care Provider + [phone] Encounter Details Date Type Department Care Team (Late st Contact Info) Description 08/11/2021 Transcribed Document [facility] [place] [facility] [place] [address] ProviderDelvin MD [address] [place] [address] [id number] Social History Tobacco Use Types Packs/Day Years Used Date Smoking Tobacco: Never Assessed Comments Unknown Sex and Gender Information Value Date Recorded Sex Assigned at Not on file Legal Sex Female 4:32 PM CDT Gender Identity Not on file Sexual Orientation Not on file documented as of this encounter Miscellaneous Notes * Cerner Conversion Note - Delvin ProviderMD - 08/11/2021 8:31 PM CDT Patient: IRINA [...] 16:19) 97.2 (AUG 11 16:19) 97.2 (AUG 11:) Mon HR 72 (AUG 11 18:55) 72 [...] (AUG 11 18:55) L 59 (AUG 11 16:) MAP 74 (AUG 11 18:55) 74 (AUG 11 18:55) 74 (AUG 11 18:55) SpO2 95 (AUG 11 18:55) 95 (AUG 11 18:55) 98 (AUG 11 16:) Labs (Last four charted values) WBC 6.8 [...] you, Noy Garrett, PharmD PGY-1 Resident Pager #[phone] Electronically signed by Loki [facility] Conversion Building Maintenance Superintendent Cerner at 03/09/2023 8:45 PM CDT documented in this encounter Plan of Treatment Not on file documented as of this encounter Visit Diagnoses Not on filedocumented in this encounter Care Teams Pet Caretaker Relationship Specialty Start Date End Date Reji Castro MD [address] [place] [id number] PCP - General Adolescent Medicine 10/02/22 documented as of this encounter
--- OUTSIDE RECORDS SUMMARY | 2025-05-24 09:12 | XMS_ITS | Encounter Summary ---
Author Organization [employer] ([place], [place], [place], [place]) Address [address] [place] [address] Care Team Providers Care Marketing Producer Name Role Phone Reji Castro MD Primary Care Provider + [phone] Encounter Details Date Type Department Care Team (Late st Contact Info) Description 08/11/2021 Transcribed Document [facility] [place] [address] [place] [address] ProviderDelvin MD [address] [place] [address] [phone] Social History Tobacco Use Types Packs/Day Years [...] whihc is why she has a port. Primary Care Provider DEREK ROBISON DR History of Present Illness 56-year-old female with a history of COPD, atrial fibrillation, CKD unknown stage, type 2 diabetes, chronic anemia that has needed blood transfusions in the past, CAD, mitral valve replacement presents to [facility] emergency department in [place] after being told by outside provider that [...] fibrillation 5. Diabetes mellitus type II 6. 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 current use of anticoagulant At risk for central venous catheter associated infection Medical screening exam Orders: acetaminophen, 650 mg, Oral, Tab, Q6H, PRN for Pain (Mild 1-3), Routine, Start 08/11/21 20:56:00 EDT, 08/11/21 20:56:00 EDT albuterol, 3 mL, Nebulized Inhalation, Inh, [...] # 0.76 K/uL (Low) 08/11/2021 17:59 EDT [place] % 8.9 % 08/11/2021 17:59 EDT [place] # 0.61 K/uL 08/11/2021 17:59 EDT Eos [...] Appearance CLEAR2 08/11/2021 17:59 EDT Urine Specific [place] 1.007 08/11/2021 17:59 EDT Urine pH Dipstick [...] Full Code, Continuous Order Electronically signed by [facility], [facility] Conversion Manager Flight Cerner at 03/09/2023 8:40 PM CDT documented in this encounter Plan of Treatment Not on file documented as of this encounter Visit Diagnoses Not on filedocumented in this encounter Care Teams Marketing Producer Relationship Specialty Start Date End Date Reji Castro MD [address] [place] [id number] PCP - General Adolescent Medicine 10/02/22 documented as of this encounter
--- OUTSIDE RECORDS SUMMARY | 2025-05-24 09:12 | XMS_ITS | Encounter Summary ---
Author Organization [employer] ([place], [place], [place], [place]) Address [address] [place] [address] Care Team Providers Care Manager Student Services Name Role Phone Reji Castro MD Primary Care Provider + [phone] Encounter Details Date Type Department Care Team (Late st Contact Info) Description 08/11/2021 Transcribed Document [facility] [place] [facility] [place] [address] ProviderDelvin MD [address] [place] [phone] Social History Tobacco Use Types Packs/Day Years Used Date Smoking Tobacco: Never Assessed Comments Unknown Sex and Gender Information Value Date Recorded Sex Assigned at Not on file Legal Sex Female 4:32 PM CDT Gender Identity Not on file Sexual Orientation Not on file documented as of this encounter Miscellaneous Notes * Cerner Conversion Note - Historical ProviderMD - 08/11/2021 4:16 PM CDT ED [...] Communication Barrier : None Primary Language : Indian Any Spiritual/Cultural Needs or Requests : No [...] EDT Gastrointestinal ED Gastrointestinal Assessment WDL : WDMARIPOSA JUSTICE RN - 08/11/2021 18:46 EDT Neurologic ASMT, ED Neurologic Assessment WDL : MARIPOSA LANDERS RN - 08/11/2021 18:46 EDT Pain Assessment [...] filedocumented in this encounter Care Teams Manager Student Services Relationship Specialty Start Date End Date Reji Castro MD [address] [place] [id number] PCP - General Adolescent Medicine 10/02/22 documented as of this encounter
--- OUTSIDE RECORDS SUMMARY | 2025-05-24 09:12 | XMS_ITS | Encounter Summary ---
Author Organization [employer] ([place], [place], [place], [place]) Address [address] [place] [address] Care Team Providers Care Processing Specialist Name Role Phone Reji Castro MD Primary Care Provider + [phone] Encounter Details Date Type Department Care Team (Late st Contact Info) Description 08/15/2021 Transcribed Document [facility] [place] Family [place] [address] [place] [address] ProviderDelvin MD [address] [place] [address] [id number] Social History Tobacco Use Types Packs/Day Years Used Date Smoking Tobacco: Never Assessed Comments Unknown Sex and Gender Information Value Date Recorded Sex Assigned at Not on file Legal Sex Female 4:32 PM CDT Gender Identity Not on file Sexual Orientation Not on file documented as of this encounter Miscellaneous Notes * Cerner Conversion Note - Delvin ProviderMD - 08/15/2021 5:00 PM CDT Chart Check [...] on filedocumented in this encounter Care Teams Processing Specialist Relationship Specialty Start Date End Date Reji Castro MD [address] [place] [address] PCP - General Adolescent Medicine 10/02/22 documented as of this encounter
--- OUTSIDE RECORDS SUMMARY | 2025-05-24 09:12 | XMS_ITS | Encounter Summary ---
Author Organization [employer] ([place], [place], [place], [place]) Address [address] [place] [address] Care Team Providers Care Township Supervisor Name Role Phone Reji Castro MD Primary Care Provider + [phone] Encounter Details Date Type Department Care Team (Late st Contact Info) Description 08/19/2021 Transcribed Document [facility] [place] [address] ProviderDelvin MD [address] [place] [address] [phone] Social History Tobacco Use Types Packs/Day Years Used Date Smoking Tobacco: Never Assessed Comments Unknown Sex and Gender Information Value Date Recorded Sex Assigned at Not on file Legal Sex Female 4:32 PM CDT Gender Identity Not on file Sexual Orientation Not on file documented as of this encounter Miscellaneous Notes * Cerner Conversion Note - Delvin ProviderMD - 08/19/2021 3:34 PM CDT On Going Discharge Planning Entered On: 08/19/2021 15:40 EDT Performed On: 08/19/2021 15:34 EDT by MADINA LOVETT RN - Senior Php Software DeveloperSales Support Specialist Progress Note Discharge Arrangements : Patient [...] : Yes MADINA LOVETT RN - Senior Php Software Developer - 08/19/2021 15:34 EDT Narrative Progress Note Narrative Progress Note : RRS Low Boost 5 Day 7 Patient was admitted for staph infection and port removal. She had a new port done on . 08/19. Patient needs to remain inpatient after surgery until her coumadin is at a therapeutic level per at [facility]. Waiting on culture results for final abx plan. May need IV abx at home via port. Patient will need home health and lvies in [place]. [facility] home [facility] is a possibility. Historical [...] will need home health and lives in [place]. [facility] home health is a possibility. CM will continue to follow. DCP: MADINA LOVETT RN - Senior Php Software Developer - 08/18/21 15:47:49 (late entry from 08/15-) [...] send referrals as appropriate. JULIO STEWART, JEREMIAH-Senior Php Software Developer ED - 08/18/21 10:38:39 MADINA LOVETT, RN - Senior Php Software Developer - 08/19/2021 15:34 EDT documented in this encounter Plan of Treatment Not on file documented as of this encounter Visit Diagnoses Not on filedocumented in this encounter Care Teams Township Supervisor Relationship Specialty Start Date End Date Reji Castro MD [address] [place] [id number] PCP - General Adolescent Medicine 10/02/22 documented as of this encounter
--- OUTSIDE RECORDS SUMMARY | 2025-05-24 09:12 | XMS_ITS | Encounter Summary ---
Author Organization [employer] ([place], [place], [place], [place]) Address [address] [place] [address] Care Team Providers Care Merchandise Planning Manager Name Role Phone Reji Castro MD Primary Care Provider [phone] Encounter Details Date Type Department Care Team (Late st Contact Info) Description 08/20/2021 Transcribed Document [facility] Radiology [address] [place] [address] Loren Solorzano MD [address] [place] [address] [place] [address] Social History Tobacco Use Types Packs/Day Years [...] cefTRIAXone: 2 Gram, 100 mL/Hr, IV Piggyback, [id number] diphenhydrAMINE: 25 mg, Oral, Q6H, PRN: Itching [...] Oral, BID cefTRIAXone 2 Gram, IV Piggyback, [id number] citalopram 20 mg tab 40 mg 2 [...] Bioprosthetic mitral valve replacement / SNOMED CT 143418368 / Confirmed Chronic kidney disease / SNOMED CT 5242545205 / Confirmed COPD - Chronic obstructive pulmonary disease / SNOMED CT 820468897 / Confirmed History of obstructive sleep apnea / IMO 64747100 / Confirmed HLD - Hyperlipidemia / SNOMED CT 830783580 / Confirmed HTN - Hypertension / SNOMED CT 9433759440 / Confirmed Canceled: Atrial fibrillation / SNOMED CT 61855102, Active Problems (25) AIHA (autoimmune hemolytic anemia) [...] 25.9 \ Radiology Results (Last 48 hours) [id number] -- 08/11/2021 21:21 CR Fluoro in OR (08/19/2021 08:15) Result: FLUOROSCOPY IN THE ORHISTORY: Staph infection.FINDINGS: Fluoroscopy was provided by the radiology department [id number] placement. 1 spot film was submittedFLUOROSCOPY TIME: [...] H 1.4 (AUG 17) PTT H 39.6 (JUL 20) AST 17 [...] Medications: cefTRIAXone 2 Gram, IV Piggyback, Inj, [id number], infuse over 30 Minute(s), Routine, Start 08/20/21 [...] Hold home meds SSI #Depression Celexa #Pain [place] 10 mg every 6 hours as needed Dispo: Given patient with history of multiple transfusion we will keep patient in the hospital on heparin drip and Coumadin till INR therapeutic need IV abx, at least until 09/08. Discussed with oil field caser. Time spent 25 minutes documented in this encounter Plan of Treatment Not on file documented as of this encounter Visit Diagnoses Not on filedocumented in this encounter Care Teams Merchandise Planning Manager Relationship Specialty Start Date End Date Reji Castro MD [address] [place] [address] PCP - General Adolescent Medicine 10/02/22 documented as of this encounter
--- OUTSIDE RECORDS SUMMARY | 2025-05-24 09:12 | XMS_ITS | Encounter Summary ---
Author Organization [employer] ([place], [place], [place], [place]) Address [address] [place] [address] Care Team Providers Care Jawbone Breaker Name Role Phone Reji Castro MD Primary Care Provider + [phone] Encounter Details Date Type Department Care Team (Late st Contact Info) Description 08/25/2021 Transcribed Document [facility] [place] Family Medicine [address] [place] [address] ProviderDelvin MD [address] [place] [phone] Social History Tobacco Use Types Packs/Day Years [...] Performed On: 08/25/2021 10:48 EDT by Porfirio Caban Caster Investment Casting Cert Lead Meds to Bed Enrollment Patient Enrollment Decision: : No/do not enroll in meds to bed program Reason for Declining Meds to Bed Program: : Prefer to use home pharmacy Porfirio Caban Caster Investment Casting Cert Lead - 08/26/2021 11:11 EDT documented in this encounter Plan of Treatment Not on file documented as of this encounter Visit Diagnoses Not on filedocumented in this encounter Care Teams Jawbone Breaker Relationship Specialty Start Date End Date Reji Castro MD [address] [place] [id number] PCP - General Adolescent Medicine 10/02/22 documented as of this encounter
--- OUTSIDE RECORDS SUMMARY | 2025-05-24 09:12 | XMS_ITS | Encounter Summary ---
Author Organization [employer] ([place], [place], [place], [place]) Address [address] [place] [address] Care Team Providers Care Belt Notcher Name Role Phone Reji Castro MD Primary Care Provider + [phone] Encounter Details Date Type Department Care Team (Late st Contact Info) Description 08/19/2021 Transcribed Document [facility] [place] [facility] [place] [facility] [place] [address] ProviderDelvin MD [address] [place] [address] [phone] Social History Tobacco Use Types Packs/Day Years Used Date Smoking Tobacco: Never Assessed Comments Unknown Sex and Gender Information Value Date Recorded Sex Assigned at Not on file Legal Sex Female 4:32 PM CDT Gender Identity Not on file Sexual Orientation Not on file documented as of this encounter Miscellaneous Notes * [employer]ner Conversion Note - Delvin ProviderMD - 08/19/2021 3:22 PM CDT Patient: IRINA TAMAYO Age: 56 years Sex: Female : 1965 Associated Diagnoses: None Author: Andrea Moraes, Resident Pharmacist Pharmacy Consult - Warfarin HPI: 56 y/o F presenting to [facility] with history of COPD, atrial fibrillation, [...] cefTRIAXone: 2 Gram, 100 mL/Hr, IV Piggyback, [id number]. citalopram: 40 mg, Oral, Daily. diphenhydrAMINE: 50 [...] (AUG 18 15:27) Resp Rate 18 (AUG 19:22) 16 (AUG 19 00:00) 20 (AUG 18 [...] 18) 195 (AUG 17) 197 (AUG 15) Na 137 (AUG 19) L 134 (AUG [...] 6.8 (AUG 18) 7.0 (SEP 24) 7.3 (AUG 13) 6.9 (SEP ) ALB 3.9 (AUG 18) 3.5 (SEP 24) [...] questions. Thank you, Andrea Moraes, PharmD PGY1 [employer] Paralegal Pager: [phone], Ext. [phone] Electronically signed by Lanny, [facility] Conversion Swimming Professor Cerner at 03/09/2023 8:43 PM CDT documented in this encounter Plan of Treatment Not on file documented as of this encounter Visit Diagnoses Not on filedocumented in this encounter Care Teams Belt Notcher Relationship Specialty Start Date End Date Reji Castro MD [address] [place] [id number] PCP - General Adolescent Medicine 10/02/22 documented as of this encounter
--- OUTSIDE RECORDS SUMMARY | 2025-05-24 09:12 | XMS_ITS | Encounter Summary ---
Author Organization [employer] ([place], [place], [place], [place]) Address [address] [place] [address] Care Team Providers Care Sample Grader Name Role Phone Reji Castro MD Primary Care Provider + [phone] Encounter Details Date Type Department Care Team (Late st Contact Info) Description 08/11/2021 Transcribed Document [facility] [place] [facility] [place] [address] ProviderDelvin MD [address] [place] [address] [phone] Social History Tobacco Use Types Packs/Day Years [...] - 08/12/2021 9:33 EDT Electronically signed by [facility] Sjh Conversion Automatic Lathe Tender Cerner at 03/09/2023 8:39 PM CDT documented in this encounter Plan of Treatment Not on file documented as of this encounter Visit Diagnoses Not on filedocumented in this encounter Care Teams Sample Grader Relationship Specialty Start Date End Date Reji Castro MD [address] [place] [address] PCP - General Adolescent Medicine 10/02/22 documented as of this encounter
--- OUTSIDE RECORDS SUMMARY | 2025-05-24 09:12 | XMS_ITS | Encounter Summary ---
Author Organization [employer] ([place], [place], [place], [place]) Address [address] [place] [address] Care Team Providers Care Waste Recycler Name Role Phone Reji Castro MD Primary Care Provider + [phone] Encounter Details Date Type Department Care Team (Late st Contact Info) Description 08/14/2021 Transcribed Document [facility] [place] [facility] [place] [address] ProviderDelvin MD [address] [place] [address] [phone] Social History Tobacco Use Types Packs/Day Years Used Date Smoking Tobacco: Never Assessed Comments Unknown Sex and Gender Information Value Date Recorded Sex Assigned at Not on file Legal Sex Female 4:32 PM CDT Gender Identity Not on file Sexual Orientation Not on file documented as of this encounter Miscellaneous Notes * Cerner Conversion Note - Historical ProviderMD - 08/14/2021 2:53 PM CDT Patient: [...] # 0.71 x10(3)/uL (Low) 08/13/2021 23:47 EDT [place] % 10.6 % (High) 08/13/2021 23:47 EDT [place] # 0.58 K/uL 08/13/2021 23:47 EDT Eos [...] (Low) 08/13/2021 18:40 EDT Electronically signed by [facility] Conversion Managed Care Specialist Cerner at 03/09/2023 8:59 PM CDT documented in this encounter Plan of Treatment Not on file documented as of this encounter Visit Diagnoses Not on filedocumented in this encounter Care Teams Waste Recycler Relationship Specialty Start Date End Date Reji Castro MD [address] [place] [address] PCP - General Adolescent Medicine 10/02/22 documented as of this encounter
--- OUTSIDE RECORDS SUMMARY | 2025-05-24 09:12 | XMS_ITS | Encounter Summary ---
Author Organization [employer] ([place], [place], [place], [place]) Address [address] [place] [address] Care Team Providers Care Bioinformatics Programmer Name Role Phone Reji Castro MD Primary Care Provider + [phone] Encounter Details Date Type Department Care Team (Late st Contact Info) Description 08/15/2021 Transcribed Document [facility] [place] [facility] [place] [address] ProviderDelvin MD [address] [place] [address] [phone] Social History Tobacco Use Types Packs/Day Years [...] mL - 700 mg, IV Piggyback, Inj, [id number], infuse over 30 Minute(s), Routine Cardiovascular metoprolol [...] PRN for Pain (Severe 7-10), Routine acetaminophen-hydrocodone ([place] 10 mg-325 mg oral tablet) - 1 [...] hrs) Last Charted Minimum Maximum Temp 97.8 ([facility] 09:37) 97.8 ([facility] 09[facility]37) 98.1 ([facility] 06:00) Apical HR 82 ([facility] 20:41) 82 ([facility] 20:41) 82 ([facility] 20:41) Mon HR 82 ([facility] 09:37) 58 ([facility] 22:00) 91 ([facility] 06:00) Resp Rate 17 (AUG 15 09:37) 16 ([facility] 17:21) 18 ([facility] 06:00) SBP 102 ([facility] 09:37) 91 ([facility] 06:00) 108 ([facility] 23 17:21) DBP 61 ([facility] 09:37) L 54 ([facility] 06:00) 76 ([facility] 23 17:21) MAP 81 ([facility] 09:37) 68 ([facility] 03:00) 86 ([facility] 23 17:21) SpO2 94 ([facility] 06:00) L 91 ([facility] 22:00) 97 ([facility] 03:00) General: No acute distress. Eye: Extraocular [...] 22) 103 (SEP 22) L 98 (SEP ) CO2 27 (SEP 24) 29 (SEP 22) 30 (SEP 22) 29 (SEP ) BUN H 28 (JUL 24) H 35 (SEP 22) H 50 (SEP 22) H 69 (SEP 21) Cr H 1.80 (SEP 24) H 1.80 (SEP 22) H 1.60 (SEP 22) H 2.40 (SEP 21) Glu R H 139 (SEP 24) H 114 (SEP 22) 102 (SEP 22) H 134 (SEP ) Ca 9.4 (SEP 24) 9.1 (SEP 22) 9.1 (SEP 22) 9.6 (SEP 21) Lactic .93 (SEP 21) L .73 (SEP 20) PT H 18.2 (JUL 24) H 17.2 (SEP 23) H 17.0 [...] 0.4 (SEP 22) 0.5 (SEP 22) 0.6 (AUG 12) PTN 7.0 (AUG 15) [...] on filedocumented in this encounter Care Teams Bioinformatics Programmer Relationship Specialty Start Date End Date Reji Castro MD [address] [place] [id number] PCP - General Adolescent Medicine 10/02/22 documented as of this encounter
--- OUTSIDE RECORDS SUMMARY | 2025-05-24 09:12 | XMS_ITS | Encounter Summary ---
Author Organization [employer] ([place], [place], [place], [place]) Address [address] [place] [address] Care Team Providers Care Administrative Coordinator Name Role Phone Reji Castro MD Primary Care Provider + [phone] Encounter Details Date Type Department Care Team (Late st Contact Info) Description 08/11/2021 Transcribed Document [facility] [place] [address] [place] [address] ProviderDelvin MD [address] [place] [address] [phone] Social History Tobacco Use Types Packs/Day Years Used Date Smoking Tobacco: Never Assessed Comments Unknown Sex and Gender Information Value Date Recorded Sex Assigned at Not on file Legal Sex Female 4:32 PM CDT Gender Identity Not on file Sexual Orientation Not on file documented as of this encounter Miscellaneous Notes * Cerner Conversion Note - Historical ProviderMD - 08/11/2021 6:54 PM CDT Patient: [...] pin. Replacement, mitral valve, with cardiopulmonary bypass (91583). sternotomy. hernia repair, abdominal. sigmoid colon resection. Tendon sheath incision (eg, for trigger finger) (89406). jaw surgery, left. great toe surger, left. [...] % LOW Lymph # 0.76 K/uL LOW Baker % 8.9 % Baker # 0.61 K/uL Eos % 4.4 % Eos # 0.30 Baso % 0.4 % Baso # 0.03 Slide Review No PT 18.9 Second(s) HI INR 1.8 HI PTT 39.6 Second(s) HI Urine Type U CleanCatch Urine Color Yellow Urine Appearance Clear Urine Specific [place] 1.007 Urine pH Dipstick 6.5 Urine Leukocyte Esterase Negative Urine Nitrite Negative Urine Protein Dipstick Negative Urine Glucose Dipstick Negative Urine Ketones Dipstick Negative Urine Urobilinogen Dipstick 0.2 EU/dL Urine Bilirubin Dipstick Negative Urine Blood Dipstick Negative Ur WBC None Seen /HPF Ur Squamous Epithelial Cells 0-2 /HPF . Radiology results: Radiology Results (Last 48 hours) [id number] -- 08/11/2021 16:16 CR Chest 1 Vw [...] indicated understanding of instructions. Electronically signed by Lanny [facility] Conversion Technical Services Manager Cerner at 03/09/2023 8:55 PM CDT documented in this encounter Plan of Treatment Not on file documented as of this encounter Visit Diagnoses Not on filedocumented in this encounter Care Teams Administrative Coordinator Relationship Specialty Start Date End Date Reji Castro MD [address] [place] [address] PCP - General Adolescent Medicine 10/02/22 documented as of this encounter
--- OUTSIDE RECORDS SUMMARY | 2025-05-24 09:12 | XMS_ITS | Encounter Summary ---
Author Organization [employer] ([place], [place], [place], [place]) Address [address] [place] [address] Care Team Providers Care Drip Molder Name Role Phone Reji Castro MD Primary Care Provider + [phone] Encounter Details Date Type Department Care Team (Late st Contact Info) Description 08/20/2021 Transcribed Document [facility] [place] Family Medicine [address] [place] [address] ProviderDelvin MD [address] [place] [address] [phone] Social History Tobacco Use Types Packs/Day Years Used Date Smoking Tobacco: Never Assessed Comments Unknown Sex and Gender Information Value Date Recorded Sex Assigned at Not on file Legal Sex Female 4:32 PM CDT Gender Identity Not on file Sexual Orientation Not on file documented as of this encounter Miscellaneous Notes * Cerner Conversion Note - Delvin ProviderMD - 08/20/2021 5:00 PM CDT Chart Check - Review Order Profile Entered On: 08/20/2021 16:48 EDT Performed On: 08/20/2021 17:00 EDT by Cynthia Perez, RN Chart Check Powerplans Initiated/Discontinued as Appropriate : Yes All Active Orders Reviewed : Yes Cynthia Perez RN - 08/20/2021 16:48 EDT Electronically signed by Lanny [facility] Conversion Sludge Control Operator Cerner at 03/09/2023 8:32 PM CDT documented in this encounter Plan of Treatment Not on file documented as of this encounter Visit Diagnoses Not on filedocumented in this encounter Care Teams Drip Molder Relationship Specialty Start Date End Date Reji Castro MD [address] [place] [id number] PCP - General Adolescent Medicine 10/02/22 documented as of this encounter
--- OUTSIDE RECORDS SUMMARY | 2025-05-24 09:12 | XMS_ITS | Encounter Summary ---
Author Organization [employer] ([place], [place], [place], [place]) Address [address] [place] [address] Care Team Providers Care Assurance Analyst Name Role Phone Reji Castro MD Primary Care Provider + [phone] Encounter Details Date Type Department Care Team (Late st Contact Info) Description 08/11/2021 Transcribed Document [facility] [place] [address] [place] [address] ProviderDelvin MD [address] [place] [address] [phone] Social History Tobacco Use Types Packs/Day Years [...] Physician Requested for Consult : JEN MCKEON MD-LIAM Provider Service Notified Name : Cardiology Physician Covering for Consult : CHELI BEASLEY MD-LIAM Date and Time Call Returned : 08/12/2021 8:33 EDT Celina Wilder RN - 08/12/2021 9:32 EDT Electronically signed by Lanny [facility] Conversion Carton Forming Machine Tender Cerner at 03/09/2023 8:42 PM CDT documented in this encounter Plan of Treatment Not on file documented as of this encounter Visit Diagnoses Not on filedocumented in this encounter Care Teams Assurance Analyst Relationship Specialty Start Date End Date Reji Castro MD [address] [place] [address] PCP - General Adolescent Medicine 10/02/22 documented as of this encounter
--- OUTSIDE RECORDS SUMMARY | 2025-05-24 09:12 | XMS_ITS | Encounter Summary ---
Author Organization [employer] ([place], [place], [place], [place]) Address [address] [place] [address] Care Team Providers Care Manager Psychology Name Role Phone Reji Castro MD Primary Care Provider + [phone] Encounter Details Date Type Department Care Team (Late st Contact Info) Description 08/20/2021 Transcribed Document [facility] [place] [facility] [place] [address] ProviderDelvin MD [address] [place] [address] [phone] Social History Tobacco Use Types Packs/Day Years Used Date Smoking Tobacco: Never Assessed Comments Unknown Sex and Gender Information Value Date Recorded Sex Assigned at Not on file Legal Sex Female 4:32 PM CDT Gender Identity Not on file Sexual Orientation Not on file documented as of this encounter Miscellaneous Notes * Cerner Conversion Note - Delvin ProviderMD - 08/20/2021 9:59 AM CDT Stroke/Warfarin Instructions [...] Sallie Cash RN - 08/20/2021 9:59 EDT Electronically signed by Lanny [facility] Conversion Active Directory Engineer Cerner at 03/09/2023 8:58 PM CDT documented in this encounter Plan of Treatment Not on file documented as of this encounter Visit Diagnoses Not on filedocumented in this encounter Care Teams Manager Psychology Relationship Specialty Start Date End Date Reji Castro MD [address] [place] [id number] PCP - General Adolescent Medicine 10/02/22 documented as of this encounter
--- OUTSIDE RECORDS SUMMARY | 2025-05-24 09:12 | XMS_ITS | Encounter Summary ---
Author Organization [employer] ([place], [place], [place], [place]) Address [address] [place] [address] Care Team Providers Care Dispenser Operator Name Role Phone Reji Castro MD Primary Care Provider + [phone] Encounter Details Date Type Department Care Team (Late st Contact Info) Description 08/14/2021 Transcribed Document [facility] [place] [facility] [place] [facility] [place] [address] ProviderDelvin MD [address] [place] [address] [phone] Social History Tobacco Use Types Packs/Day Years Used Date Smoking Tobacco: Never Assessed Comments Unknown Sex and Gender Information Value Date Recorded Sex Assigned at Not on file Legal Sex Female 4:32 PM CDT Gender Identity Not on file Sexual Orientation Not on file documented as of this encounter Miscellaneous Notes * Cerner Conversion Note - Historical ProviderMD - 08/14/2021 2:00 AM CDT Day Care Worker Details Entered On: 08/14/2021 6:50 EDT Performed [...] on filedocumented in this encounter Care Teams Dispenser Operator Relationship Specialty Start Date End Date Reji Castro MD [address] [place] [id number] PCP - General Adolescent Medicine 10/02/22 documented as of this encounter
--- OUTSIDE RECORDS SUMMARY | 2025-05-24 09:12 | XMS_ITS | Encounter Summary ---
Author Organization [employer] ([place], [place], [place], [place]) Address [address] [place] [address] Care Team Providers Care Wide Area Network Engineer Name Role Phone Reji Castro MD Primary Care Provider + [phone] Encounter Details Date Type Department Care Team (Late st Contact Info) Description 08/14/2021 Transcribed Document [facility] [place] [address] ProviderDelvin MD [address] [place] [address] [id number] Social History Tobacco Use Types Packs/Day Years Used Date Smoking Tobacco: Never Assessed Comments Unknown Sex and Gender Information Value Date Recorded Sex Assigned at Not on file Legal Sex Female 4:32 PM CDT Gender Identity Not on file Sexual Orientation Not on file documented as of this encounter Miscellaneous Notes * Cerner Conversion Note - Historical ProviderMD - 08/14/2021 4:23 PM CDT Patient: [...] Start 08/11/21 20:44:00 EDT, 08/11/21 20:44:00 EDT (REIJ GUERRA) Sequential Compression Device Start: 08/11/21 20:26:00 [...] # 0.71 x10(3)/uL (Low) 08/13/2021 23:47 EDT [place] % 10.6 % (High) 08/13/2021 23:47 EDT [place] # 0.58 K/uL 08/13/2021 23:47 EDT Eos [...] (Low) 08/13/2021 18:40 EDT Electronically signed by [facility], Sjh Conversion Steam Pressure Chamber Operator Cerner at 03/09/2023 8:31 PM CDT documented in this encounter Plan of Treatment Not on file documented as of this encounter Visit Diagnoses Not on filedocumented in this encounter Care Teams Wide Area Network Engineer Relationship Specialty Start Date End Date Reji Castor MD [address] [place] [id number] PCP - General Adolescent Medicine 10/02/22 documented as of this encounter
--- OUTSIDE RECORDS SUMMARY | 2025-05-24 09:12 | XMS_ITS | Encounter Summary ---
Author Organization [employer] ([place], [place], [place], [place]) Address [address] [place] [address] Care Team Providers Care Lathe Setup Operator Name Role Phone Reji Castro MD Primary Care Provider + [phone] Encounter Details Date Type Department Care Team (Late st Contact Info) Description 08/15/2021 Transcribed Document [facility] [place] Family Medicine [facility] [place] [address] ProviderDelvin MD [address] [place] [address] [phone] Social History Tobacco Use Types Packs/Day Years [...] her port could not be accessed. Her ventilator specialist aspirated fluid from the port that [...] antibiotics. On 08/08 she presented to a [facility] after she developed severe CHEUNG and myalgias w/o prominent fever. 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 Review of Systems ROS reviewed as documented in chart Health Status Current medications: (Selected) Inpatient Medications Ordered ALPRAZolam: 0.5 mg, Oral, TID, PRN: Anxiety CeleXA: 40 mg, Oral, Daily Coumadin: 6 mg, Oral, Daily Coumadin: 7.5 mg, Oral, Daily DAPTOmycin + Sodium Chloride 0.9% intravenous solution 50 mL: 700 mg, 14 mL, 128 mL/Hr, IV Piggyback, [id number] Dextrose 50% injection: 12.5 Gram, IV Push, Q15Min, PRN: Other (See Comment) Dextrose 50% injection: 25 Gram, IV Push, Q15Min, PRN: Other (See Comment) Dextrose 50% injection: 25 Gram, IV Push, Q15Min, PRN: Other (See Comment) Dextrose 50% injection: 25 Gram, IV Push, Q15Min, PRN: Other (See Comment) Lactated Ringers Injection intravenous solution 1,000 mL: 20 mL/Hr, IntraVENous [place] 10 mg-325 mg oral tablet: 1 Tab, [...] 1 Cap, Oral, Daily, takes with dinner Toujecassandra SoloStar 300 units/mL subcutaneous solution: 80 Units, [...] tenderness, No swelling, No deformity. Integumentary: Warm, [place]. Neurologic: Alert, Oriented, No focal deficits. Psychiatric: [...] 17 (SEP 24) 17 (SEP 22) 19 (AUG 13) 23 (AUG 12) ALK [...] of paula cath Electronically signed by Lanny [facility] Conversion Emergency Department Coordinator Cerner at 03/09/2023 8:49 PM CDT documented in this encounter Plan of Treatment Not on file documented as of this encounter Visit Diagnoses Not on filedocumented in this encounter Care Teams Lathe Setup Operator Relationship Specialty Start Date End Date Reji Castro MD [address] [place] [id number] PCP - General Adolescent Medicine 10/02/22 documented as of this encounter
--- OUTSIDE RECORDS SUMMARY | 2025-05-24 09:12 | XMS_ITS | Encounter Summary ---
Author Organization [facility] ([place], [place], [place], [place]) Address [address] [address] Care Team Providers Care Mother Baby Rn Name Role Phone Reji Castro MD Primary Care Provider + [phone] Encounter Details Date Type Department Care Team (Late st Contact Info) Description 08/15/2021 Transcribed Document [facility] [place] [facility] [place] [address] ProviderDelvin MD [address] [place] [address] [phone] Social History Tobacco Use Types Packs/Day Years Used Date Smoking Tobacco: Never Assessed Comments Unknown Sex and Gender Information Value Date Recorded Sex Assigned at Not on file Legal Sex Female 4:32 PM CDT Gender Identity Not on file Sexual Orientation Not on file documented as of this encounter Miscellaneous Notes * Cerner Conversion Note - Historical ProviderMD - 08/15/2021 4:18 PM CDT Pain [...] on filedocumented in this encounter Care Teams Mother Baby Rn Relationship Specialty Start Date End Date Reji Castro MD [address] [place] [id number] PCP - General Adolescent Medicine 10/02/22 documented as of this encounter
--- OUTSIDE RECORDS SUMMARY | 2025-05-24 09:12 | XMS_ITS | Encounter Summary ---
Author Organization [employer] ([place], [place], [place], [place]) Address [address] [place] [address] Care Team Providers Care Bicycle Subassembler Name Role Phone Reji Castro MD Primary Care Provider + [phone] Encounter Details Date Type Department Care Team (Late st Contact Info) Description 08/20/2021 Transcribed Document [facility] Family Medicine [address] [place] [address] ProviderDelvin MD [address] [place] [address] [phone] Social History Tobacco Use Types Packs/Day Years [...] Performed On: 08/20/2021 5:00 EDT by Genna Gonsalez RN Chart Check Powerplans Initiated/Discontinued as Appropriate : Yes All Active Orders Reviewed : Yes Genna Gonsalez RN - 08/20/2021 6:39 EDT documented in this encounter Plan of Treatment Not on file documented as of this encounter Visit Diagnoses Not on filedocumented in this encounter Care Teams Bicycle Subassembler Relationship Specialty Start Date End Date Reji Castro MD [address] [place] [id number] PCP - General Adolescent Medicine 10/02/22 documented as of this encounter
--- OUTSIDE RECORDS SUMMARY | 2025-05-24 09:12 | XMS_ITS | Encounter Summary ---
Author Organization [employer] ([place], [place], [place], [place]) Address [address] [place] [address] Care Team Providers Care Hazardous Material Technician Name Role Phone Reji Castro MD Primary Care Provider + [phone] Encounter Details Date Type Department Care Team (Late st Contact Info) Description 08/26/2021 Transcribed Document [facility] [place] [facility] [place] [address] ProviderDelvin MD [address] [place] [address] [phone] Social History Tobacco Use Types Packs/Day Years Used Date Smoking Tobacco: Never Assessed Comments Unknown Sex and Gender Information Value Date Recorded Sex Assigned at Not on file Legal Sex Female 4:32 PM CDT Gender Identity Not on file Sexual Orientation Not on file documented as of this encounter Miscellaneous Notes * Cerner Conversion Note - Historical ProviderMD - 08/26/2021 2:00 AM CDT Dressmaker Or Tailor Details Entered On: 08/26/2021 4:16 EDT Performed [...] Patient Needs Meds Crushed/Liquid : No Pamela Miguel RN - 08/26/2021 4:15 EDT documented in this encounter Plan of Treatment Not on file documented as of this encounter Visit Diagnoses Not on filedocumented in this encounter Care Teams Hazardous Material Technician Relationship Specialty Start Date End Date Reji Castro MD [address] [place] [id number] PCP - General Adolescent Medicine 10/02/22 documented as of this encounter
--- OUTSIDE RECORDS SUMMARY | 2025-05-24 09:12 | XMS_ITS | Encounter Summary ---
Author Organization [employer] ([place], [place], [place], [place]) Address [address] [place] [address] Care Team Providers Care Government Relations Manager Name Role Phone Reji Castro MD Primary Care Provider + [phone] Encounter Details Date Type Department Care Team (Late st Contact Info) Description 08/20/2021 Transcribed Document [facility] [place] [facility] [place] [address] ProviderDelvin MD [address] [place] [address] [phone] Social History Tobacco Use Types Packs/Day Years Used Date Smoking Tobacco: Never Assessed Comments Unknown Sex and Gender Information Value Date Recorded Sex Assigned at Not on file Legal Sex Female 4:32 PM CDT Gender Identity Not on file Sexual Orientation Not on file documented as of this encounter Miscellaneous Notes * Cerner Conversion Note - Historical ProviderMD - 08/20/2021 2:00 AM CDT Shoes Hand Sewer Details Entered On: 08/20/2021 3:08 EDT Performed [...] Genna Gonsalez RN - 08/20/2021 3:08 EDT Electronically signed by [employer] Strategic Partnership Representative Cerner at 03/09/2023 8:42 PM CDT documented in this encounter Plan of Treatment Not on file documented as of this encounter Visit Diagnoses Not on filedocumented in this encounter Care Teams Government Relations Manager Relationship Specialty Start Date End Date Reji Castro MD [address] [place] [id number] PCP - General Adolescent Medicine 10/02/22 documented as of this encounter
--- OUTSIDE RECORDS SUMMARY | 2025-05-24 09:12 | XMS_ITS | Encounter Summary ---
Author Organization [employer] ([place], [place], [place]) Address [address] [place] [address] Care Team Providers Care Information And Data Architect Analyst Name Role Phone Reji Castro MD Primary Care Provider [phone] Encounter Details Date Type Department Care Team (Late st Contact Info) Description 08/19/2021 Transcribed Document [facility] Radiology [address] [place] [address] Loren Solorzano MD [address] [place] [address] [place] [address] Social History Tobacco Use Types Packs/Day Years [...] Bioprosthetic mitral valve replacement / SNOMED CT 757538465 / Confirmed Chronic kidney disease / SNOMED CT 3985355350 / Confirmed COPD - Chronic obstructive pulmonary disease / SNOMED CT 033186046 / Confirmed History of obstructive sleep apnea / IMO [id number] / Confirmed HLD - Hyperlipidemia / SNOMED CT 890755612 / Confirmed HTN - Hypertension / SNOMED CT 3309918534 / Confirmed Canceled: Atrial fibrillation / SNOMED CT 99008589, Active Problems (25) AIHA (autoimmune hemolytic anemia) [...] hrs) Last Charted Minimum Maximum Temp 99.1 ([facility] 06:30) 98 ([facility] 00:00) 99.1 ([facility] 06:30) Apical HR 87 ([facility] 20:53) 87 ([facility] 20:53) 87 ([facility] 20:53) Mon HR 81 ([facility] 06:30) 72 ([facility] 21:00) 87 ([facility] 15:27) Resp Rate 18 ([facility] 06:30) 16 ([facility] 00:00) 20 ([facility] 18:17) SBP 117 ([facility] 06:30) 94 ([facility] 21:00) 120 ([facility] 18:17) DBP 67 ([facility] 06:30) L 55 ([facility] 21:00) 67 ([facility] 06:30) MAP 85 ([facility] 06:30) 67 ([facility] 21:00) 87 (AUG 18 18:17) SpO2 98 (AUG 19 06:30) L [...] data available Radiology Results (Last 48 hours) [id number] -- 08/11/2021 21:21 CR Chest 1 Vw [...] Start 08/18/21 18:34:00 EDT, 08/18/21 18:34:00 EDT JENNA BULL [...] Hold home meds SSI #Depression Celexa #Pain Bradley 10 mg every 6 hours as needed [...] filedocumented in this encounter Care Teams Information And Data Architect Analyst Relationship Specialty Start Date End Date Reji Castro MD [address] [place] [id number] PCP - General Adolescent Medicine 10/02/22 documented as of this encounter
--- OUTSIDE RECORDS SUMMARY | 2025-05-24 09:12 | XMS_ITS | Encounter Summary ---
Author Organization [employer] ([place], [place], [place], [place]) Address [address] [place] [address] Care Team Providers Care Registered Private Duty Nurse Name Role Phone Reji Castro MD Primary Care Provider + [phone] Encounter Details Date Type Department Care Team (Late st Contact Info) Description 08/14/2021 Transcribed Document [facility] [place] [address] [place] [address] ProviderDelvin MD [address] [place] [phone] Social History Tobacco Use Types Packs/Day Years Used Date Smoking Tobacco: Never Assessed Comments Unknown Sex and Gender Information Value Date Recorded Sex Assigned at Not on file Legal Sex Female 4:32 PM CDT Gender Identity Not on file Sexual Orientation Not on file documented as of this encounter Miscellaneous Notes * Cerner Conversion Note - Delvin ProviderMD - 08/14/2021 9:06 AM CDT DATE OF [...] back to her room in stable condition. /[id number] MD GERMAINE Pollard/TONYA / DOTTIE / DARIL /[id number] Electronically signed by Lanny, [facility] Conversion [employer] Assistant Principal Cerner at 03/09/2023 8:43 PM CDT documented in this encounter Plan of Treatment Not on file documented as of this encounter Visit Diagnoses Not on filedocumented in this encounter Care Teams Registered Private Duty Nurse Relationship Specialty Start Date End Date Reji Castro MD [address] [place] [id number] PCP - General Adolescent Medicine 10/02/22 documented as of this encounter
--- OUTSIDE RECORDS SUMMARY | 2025-05-24 09:12 | XMS_ITS | Encounter Summary ---
Author Organization [employer] ([place], [place], [place], [place]) Address [address] [place] [address] Care Team Providers Care Supervisor Gluing Name Role Phone Reji Castro MD Primary Care Provider + [phone] Encounter Details Date Type Department Care Team (Late st Contact Info) Description 08/14/2021 Transcribed Document [facility] [place] Family Medicine [address] [place] [address] ProviderDelvin MD [address] [place] [address] [phone] Social History Tobacco Use Types Packs/Day Years [...] Author: CHELI BEASLEY MD-CAR Basic Information Primary Forestry Professor: Dr. Delmar Geronimo Appraiser Personal Property: MD Nestor Subjective NAD Health Status Current [...] mL 700 mg 14 mL, IV Piggyback, [id number] famotidine 20 mg tab 20 mg 1 [...] of motion, Normal strength. Integumentary: Warm, Dry, [place]. Neurologic: Alert, Oriented. Psychiatric: Cooperative, Appropriate mood & affect. Results Review AUG 13 23:47 L 135 102 H 35 / H 114 4.2 29 H 1.80 \ SEP 22 23:47 \ L 8.1 / 5.5 206 / L 26.9 \ Cardiac Markers (Current Encounter/Past 24 Hours) CK 87 Units/Liter 08/13/2021 05:53 ProBNP 647 pg/mL HI 08/14/2021 00:14 Radiology Results (Last 48 hours) [id number] -- 08/11/2021 21:21 CR Abdomen 1 Vw [...] personally viewed, interpreted and dictated the examination. Iholiva read and agree with the above final [...] personally viewed, interpreted and dictated the examination. Iholiva read and agree with the above final [...] mechan MV, 4+ TR, no vegetation. Admitted [facility] 07/12, Negative CHUCHO, TTE for vegetation [...] appropriate per primary hosp service & primary duct maker. Will sign-off, call if questions. RV w/ Dr. Sawyer 1 wk post DC. 08/13/21 Resume Toprol XL 25 mg QHS. Reinitiation of other HF meds as appropriate. 08/12/21 CHUCHO to assess for endocarditis & mechanical causes of hemolysis. Obtain records from [facility]. Check haptoglobin, LDH, reticulocyte count. Continue other current CV meds. documented in this encounter Plan of Treatment Not on file documented as of this encounter Visit Diagnoses Not on filedocumented in this encounter Care Teams Supervisor Gluing Relationship Specialty Start Date End Date Reji Castro MD [address] [place] [id number] PCP - General Adolescent Medicine 10/02/22 documented as of this encounter
--- OUTSIDE RECORDS SUMMARY | 2025-05-24 09:12 | XMS_ITS | Encounter Summary ---
Author Organization [employer] ([place], [place], [place], [place]) Address [address] [place] [address] Care Team Providers Care Hvac Installer Name Role Phone Reji Castro MD Primary Care Provider + [phone] Encounter Details Date Type Department Care Team (Late st Contact Info) Description 08/26/2021 Transcribed Document [facility] [place] Family Medicine [facility] [place] [address] ProviderDelvin MD [address] [place] [address] [phone] Social History Tobacco Use Types Packs/Day Years [...] 97.7 (AUG 04 18:39) Apical HR 81 (AUG 04 22:24) 81 (OCT 04 22:24) 81 (OCT 04 22:24) Mon HR 86 (AUG 26 05:31) 77 (AUG 04 19:00) 87 (AUG 04 18:46) Resp Rate 14 (AUG 26 05:31) 14 (AUG 04 21:01) 16 (AUG 04 18:39) SBP 101 (AUG 26 05:31) 92 (AUG 04 14:19) 105 (AUG 04 18:54) DBP 61 (AUG 26 05:31) L 49 (AUG 04 19:00) 61 (AUG 04 18:39) MAP 85 (AUG 05 05:31) 71 (OCT 04 14:19) 85 (AUG 05 05:31) SpO2 96 (AUG 26 05:31) 96 (AUG 04 14:19) 100 (AUG 04 18:46) Labs (Last four charted values) [...] (OCT 03) 139 (OCT 02) K 4.0 (AUG 26) 4.1 (AUG [...] (AUG 11) Current Warfarin Trend Date 9/20 9/21 9/22 9/23 9/24 9/25 9/26 INR 1.8 1.7 1.6 1.7 1.8 1.7 [...] 8 mg daily. 2). Daily INR Will follow, Zeyad SnowD, BCPS [phone] Electronically signed by Lanny, [facility] Conversion Director Of Institutional Sales Cerner at 03/09/2023 8:52 PM CDT documented in this encounter Plan of Treatment Not on file documented as of this encounter Visit Diagnoses Not on filedocumented in this encounter Care Teams Hvac Installer Relationship Specialty Start Date End Date Reji Castro MD [address] [place] [id number] PCP - General Adolescent Medicine 10/02/22 documented as of this encounter
--- OUTSIDE RECORDS SUMMARY | 2025-05-24 09:12 | XMS_ITS | Encounter Summary ---
Author Organization [employer] ([place], [place], [place], [place]) Address [address] [place] [address] Care Team Providers Care Activities Coordinator Name Role Phone Reji Castro MD Primary Care Provider + [phone] Encounter Details Date Type Department Care Team (Late st Contact Info) Description 08/25/2021 Transcribed Document [facility] [place] [address] [place] [address] ProviderDelvin MD [address] [place], [place] [phone] Social History Tobacco Use Types Packs/Day Years [...] Event : Transfer to telemetry Rapid Response Activities Coordinator #1 : ROBERTO KOHLI RN Rapid Response Activities Coordinator #2 : ROBERTO CAMARA, UNEMPLOYMENT INSURANCE DIRECTOR ROBERTO KOHLI RN - 08/25/2021 9:33 EDT [...] kidney disease, unspecified Heart failure, unspecified intermediate accountant (current) use of anticoagulants Medical screening exam [...] ROBERTO KOHLI RN - 08/25/2021 9:20 EDT Electronically signed by Lanny [facility] Conversion Striper Spray Gun Cerner at 03/09/2023 8:33 PM CDT documented in this encounter Plan of Treatment Not on file documented as of this encounter Visit Diagnoses Not on filedocumented in this encounter Care Teams Activities Coordinator Relationship Specialty Start Date End Date Reji Castro MD [address] [place] [id number] PCP - General Adolescent Medicine 10/02/22 documented as of this encounter
--- OUTSIDE RECORDS SUMMARY | 2025-05-24 09:12 | XMS_ITS | Encounter Summary ---
Author Organization [employer] ([place], [place], [place], [place]) Address [address] [place] [address] Care Team Providers Care Controller Operations And Hr Manager Name Role Phone Reji Castro MD Primary Care Provider + [phone] Encounter Details Date Type Department Care Team (Late st Contact Info) Description 08/26/2021 Transcribed Document [facility] Family Medicine [address] [place] [address] ProviderDelvin MD [address] [place] [address] [phone] Social History Tobacco Use Types Packs/Day Years [...] Performed On: 08/26/2021 5:00 EDT by Pamela Miguel RN Chart Check Power[employer] Initiated/Discontinued as Appropriate : Yes All Active Orders Reviewed : Yes Pamela Miguel RN - 08/26/2021 4:16 EDT Electronically signed by Lanny [facility] Conversion Collet Making Machine Operator Cerner at 03/09/2023 8:32 PM CDT documented in this encounter Plan of Treatment Not on file documented as of this encounter Visit Diagnoses Not on filedocumented in this encounter Care Teams Controller Operations And Hr Manager Relationship Specialty Start Date End Date Reji Castro MD [address] [place] [id number] PCP - General Adolescent Medicine 10/02/22 documented as of this encounter
--- OUTSIDE RECORDS SUMMARY | 2025-05-24 09:12 | XMS_ITS | Encounter Summary ---
Author Organization [employer] ([place], [place], [place], [place]) Address [address] [place] [address] Care Team Providers Care Contracts Law Professor Name Role Phone Reji Castro MD Primary Care Provider + [phone] Encounter Details Date Type Department Care Team (Late st Contact Info) Description 08/20/2021 Transcribed Document [facility] [place] [facility] [place] [address] ProviderDelvin MD [address] [place] [phone] Social History Tobacco Use Types Packs/Day Years [...] 08/19/21 18:00:00 EDT, 08/11/21 20:44:00 EDT (LOREN TENA Wojciech) Sequential Compression Device Start: 08/11/21 20:26:00 EDT, [...] # 0.38 x10(3)/uL (Low) 08/20/2021 07:38 EDT [place] % 7.9 % 08/20/2021 07:38 EDT [place] # 0.64 K/uL 08/20/2021 07:38 EDT [employer]os [...] (Critical) 08/20/2021 15:16 EDT Electronically signed by [facility], [facility] Conversion Assistant Media Buyer Cerner at 03/09/2023 8:31 PM CDT documented in this encounter Plan of Treatment Not on file documented as of this encounter Visit Diagnoses Not on filedocumented in this encounter Care Teams Contracts Law Professor Relationship Specialty Start Date End Date Reji Castro MD [address] [place] [id number] PCP - General Adolescent Medicine 10/02/22 documented as of this encounter
--- OUTSIDE RECORDS SUMMARY | 2025-05-24 09:12 | XMS_ITS | Encounter Summary ---
Author Organization [employer] ([place], [place], [place], [place]) Address [address] [place] [address] Care Team Providers Care Cupola Melting Supervisor Name Role Phone Reji Castro MD Primary Care Provider + [phone] Encounter Details Date Type Department Care Team (Late st Contact Info) Description 08/14/2021 Transcribed Document [facility] [address] [place] [id number] ProviderDelvin MD [address] [place] [address] [id number] Social History Tobacco Use Types Packs/Day Years Used Date Smoking Tobacco: Never Assessed Comments Unknown Sex and Gender Information Value Date Recorded Sex Assigned at Not on file Legal Sex Female 4:32 PM CDT Gender Identity Not on file Sexual Orientation Not on file documented as of this encounter Miscellaneous Notes * Cerner Conversion Note - Delvin ProviderMD - 08/14/2021 7:45 AM CDT [facility] IntraOp Summary Primary Physician: NENA PEARSON MD-SUR Finalized Date/Time: 08/18/21 09:41:55 Pt. Name: RONI IRINAMARCIO Latham D.O.B./Sex: 1965 Female Med Rec #: [id number] Physician: VINCE BELLO MD Financial #: [id number] Pt. Type: I Room/Bed: [facility]/ Admit/Disch: 08/11/21 21:21:00 - Institution: [facility] IntraOp Case Attendance Entry 1 Entry 2 Entry 3 Case Attendee NENA PEARSON MD-Erika Murry RN Poe, Kali JEREMIAH Role Performed Surgeon/Proceduralist, Block Operator, First Block Operator, Second First Time In 08/14/21 07:34:00 [...] Case Attendee Randee Swain, Scrub TAMELA PRITCHETT, MEDICAL RECORDS SPECIALIST BORIS VEGAS, Pedro Pablo FIGUEROA-ANS Role Performed Scrub, First MEDICAL RECORDS SPECIALIST/Nurse Clinical Laboratory Manager Anesthesiologist of Record Time In 08/14/21 07:34:00 08/14/21 07:34:00 08/14/21 07:34:00 Time Out 08/14/21 08:17:00 08/14/21 08:17:00 08/14/21 08:17:00 Procedure Vascular Access Removal Vascular Access Removal Vascular Access Removal Other Attendee Superficial Wound Closed By: Last Modified By: Erika Montgomery, Erika Chand, Erika Chand, JEREMIAH 08/14/21 08:22:17 08/14/21 08:22:17 08/14/21 08:22:17 Entry 7 Case Attendee OTHER, ATTENDEE #1 Role Performed MEDICAL RECORDS SPECIALIST/Nurse Clinical Laboratory Manager Time In 08/14/21 07:34:00 Time Out 08/14/21 08:17:00 Procedure Vascular Access Removal Other Attendee JOEY HOBBS MEDICAL RECORDS SPECIALIST STUDENT Superficial Wound Closed By: Last Modified By: Erika Montgomery RN 08/14/21 10:50:59 [facility] Case Attendance Audit 08/14/21 10:50:59 Telemarketer Supervisor: LIAM Modifier: LIAM 7 <*> Procedure Vascular Access Removal 7 <*> Other Attendee JOEY PROCTOR MEDICAL RECORDS SPECIALIST STUDENT 08/14/21 08:24:52 Telemarketer Supervisor: LAFAVEHM Modifier: LAFAVEHM <+> 7 Case Attendee <+> 7 Role Performed <+> 7 Time In <+> 7 Time Out <+> 7 Procedure <+> 7 Other Attendee 08/14/21 08:22:17 Telemarketer Supervisor: LAFAVEHM Modifier: LAFAVEHM 1 <+> Time In [...] Out 6 <*> Procedure Vascular Access Removal [facility] IntraOp Case Times Entry 1 Patient In Room Time 08/14/21 07:34:00 Out Room Time 08/14/21 08:17:00 Anesthesia Start Time 08/14/21 07:34:00 Stop Time 08/14/21 08:17:00 Surgery / Procedure Times Start Time 08/14/21 07:45:00 Stop Time 08/14/21 08:08:00 Last Modified By: Erika Montgomery RN 08/14/21 08:17:16 [facility] Intra[facility] Case Times Audit 08/14/21 08:17:16 Telemarketer Supervisor: LAFAVEHM Modifier: LAFAVEHM <+> 1 Out Room Time <+> 1 Stop Time <+> 1 Stop Time 08/14/21 07:46:45 Telemarketer Supervisor: LAFAVEHM Modifier: LAFAVEHM <+> 1 Start Time [facility] IntraOp Cautery Entry 1 ESU Identification Cautery Type Monopolar ESU ID Number [id number] ID Type Hospital Number Cautery Settings Cut Setting 30 Coag Setting 30 ESU Grounding Pad Ground Pad Type Reusable electrode pad Grounding Pad Type MEGADYNE PAD Comment Grounding Pad Site Posterior Grounding Pad Site Warm, dry and intact Skin Condition Before Cautery Grounding Pad Site Unchanged Skin Condition After Cautery Last Modified By: Erika Montgomery RN 08/14/21 07:19:50 [facility] Intra[facility] Communication Entry 1 Communication To Family/Significant other Communication By Erika Montgomery RN Date and Time 08/14/21 07:47:00 Last Modified By: Erika Montgomery RN 08/14/21 07:47:41 [facility] Intra[facility] Counts Verification Entry 1 Procedure Vascular Access Removal Count Info Count Type Sponge, Sharps, Miscellaneous Counts Verification Baseline/pre-procedure Sequence Counts Performed By Count Performed By Randee Swain Scrub (Scrub) Tech Count Performed By Jj Mancuso RN (RN) Last Modified By: Erika Montgomery RN 08/14/21 07:18:54 [facility] IntraOp Counts Final Entry 1 Procedure Vascular Access Removal Final Count Info Count Type Sponge, Sharps, Miscellaneous Counts Verification Skin Closure/end of Sequence procedure Count Results Correct, surgeon notified Counts Performed By Count Performed By Randee Swain Scrub (Scrub) Tech Count Performed By Jj Mancuso RN (RN) Last Modified By: Erika Montgomery RN 08/14/21 08:02:40 [facility] IntraOp Counts Final Audit 08/14/21 08:02:40 Telemarketer Supervisor: LIAM Modifier: LIAM 1 <*> Procedure Vascular Access Removal 1 <*> Count Type Sponge, Sharps, Miscellaneous 1 <*> Count Results Correct, surgeon notified 1 <+> Count Performed By (Scrub) 1 <+> Count Performed By (RN) 1 <*> Counts Verification Sequence Skin Closure/end of procedure [facility] Cultures and Spec Summary Entry 1 Cultrures and Specimens Specimen Ordered: Yes Test(s) Culture(s)/Microbiology Requested/Final Disposition Last Modified By: Erika Montgomery RN 08/14/21 07:51:28 [facility] Intra[facility] Delays Entry 1 Delay Reason Other Duration 4 Minute(s) Comment MEDICATION DELAY Last Modified By: Erika Montgomery RN 08/14/21 07:49:40 [facility] Intra[facility] Departure from OR Entry 1 Integumentary Assessment Transfer/Handoff Transfer to Other Handoff Method Bedside/Face to face, Phone call, Online nursing summary Post-op Transport Stretcher/Roderick Via Patient Transport TAMELA PRITCHETT CRNA Accompanied by Transfer/Handoff RN REPORT ( ELEVATED Comments HOB WEIGHT OVER DRRESSING (IV BAG) RESTRICT USE LEFT ARM X [address] PEARSON. TRANSPORT TO FLOOR BY [facility] Last Modified By: Erika Montgomery RN 08/14/21 08:21:55 [facility] Intra[facility] Departure from OR Audit 08/14/21 08:21:55 Telemarketer Supervisor: LIAM Modifier: LAFBEAR 1 <*> Transfer/Handoff Comments TRANSPORT TO FLOOR BY [facility] 1 <+> Post-op Transport Via [facility] Dressing and Packing Entry 1 Type Dressing Location L UPPER CHEST Wound Dressing Item 4x4's, Skin Closure Glue Other Comments PRESSURE DRESSING Last Modified By: Erika Montgomery RN 08/14/21 08:19:18 [facility] Fire Risk Assessment Entry 1 Fire [...] Modified By: Erika Montgomery RN 08/14/21 07:49:49 [facility] Fire Risk Assessment Audit 08/14/21 07:49:49 Telemarketer Supervisor: LIAM Modifier: LAFAVEHM <+> 1 Fire Risk Assessment Verified Date/Time [facility] Intra General Case Compressor Service Technician 1 Case Information OR OR 08 [facility] Case Level 1 Room Verified Yes Wound Class I - Clean Specialty General Anesthesia Type MAC ASA Class 4 Diagnosis Preop Diagnosis INFECTED SANAM CATH Postop Same As Preop No Postop Diagnosis SEE MD POST OP NOTES Last Modified By: Erika Montgomery RN 08/14/21 07:52:14 [facility] Intra[facility] General Case Data Audit 08/14/21 07:52:14 Telemarketer Supervisor: LIAM Modifier: LAFAVEHM <+> 1 Preop Diagnosis [facility]Op Intraoperative Assessment Entry 1 Handoff Method Bedside/Face to face, Phone call, Online nursing summary Valid History / Yes Physical in Chart Preoperative Yes Checklist Reviewed/Evaluated Allergies Reviewed Yes Patient is Latex No Sensitive Present Upon IVs Arrival to OR Last Modified By: Erika Montgomery RN 08/14/21 07:20:57 [facility] Intraoperative Equipment Entry 1 Type Monitoring Equipment Equipment Juan Carlos Suction System Intraop Monitoring Antiembolic Devices Scopes Photo/Video Documentation Last Modified By: Erika Montgomery RN 08/14/21 07:21:08 [facility] Medication Admin Entry 1 Medication/Irrigant lidocaine 1% w/ epinephrine 1:100,000 30ml vial - [id number] Route of LOCAL Administration Dose Dose 10 Unit of Measure ml Administered By NENA PEARSON MD-SUR Procedure Irrigation Last Modified By: Erika Montgomery RN 08/14/21 08:02:53 [facility] Intra[facility] Medication Admin Audit 08/14/21 08:02:53 Telemarketer Supervisor: LAFAVEHM Modifier: LAFAVEHM 1 <*> Medication/Irrigant lidocaine 1% w/ epinephrine 1:100,000 30ml vial - [id number] 1 <+> Dose [facility] Intra[facility] Patient Positioning Entry 1 Procedure Vascular [...] NENA PEARSON MD-SUR, Erika Montgomery, JEREMIAH, Jj Mancuso RN, TAMELA PRITCHETT CRNA Position Verified Positioning Yes Verified by Anesthesia Positioning Yes Verified by Surgeon Last Modified By: Erika Montgomery RN 08/14/21 07:23:01 [facility] IntraOp Patient Positioning Audit 08/14/21 07:23:01 Telemarketer Supervisor: LAFAVEHM Modifier: LAFAVEHM 1 <*> Procedure Vascular Access Removal 1 <+> Positioning Verified by Anesthesia 1 <+> Positioning Verified by Surgeon 1 <+> Positioned By [facility] Intra[facility] Sign In Entry 1 Patient, Site, [...] Modified By: Erika Montgomery RN 08/14/21 07:47:09 [facility] Sign Out Entry 1 RN Confirmation [...] Yes Elements Complete? RN Sign Out Erika Montgomery, RN Signature RN Sign Out 08/14/21 08:22:00 [...] Modified By: Erika Montgomery RN 08/14/21 08:22:10 [facility] Sign Out Audit 08/14/21 08:22:10 Telemarketer Supervisor: LIAM Modifier: LAFAVEHM <+> 1 RN Sign Out Signature Date/Time [facility] Intra[facility] Skin Prep Entry 1 Procedure Vascular Access Removal Prescribed Yes Pre-Surgical Prep Completed Prep Area CHEST INCLUDE LEFT SHOULDER Intraop Prep Prep Agents Chloraprep Prep by NENA PEARSON MD-TATYANA Hair Removal Methods No hair removal performed Last Modified By: Erika Montgomery RN 08/14/21 07:49:03 [facility] IntraOp Surgical Procedures Entry 1 Procedure Vascular Access Removal Additional (PORT A CATH REMOVAL) Procedure Description Primary Procedure Yes Primary Surgeon NENA PEARSON MD-TATYANA Start 08/14/21 07:45:00 Stop 08/14/21 08:08:00 Anesthesia Type MAC Specialty General Wound Class I - Clean Last Modified By: Erika Montgomery RN 08/14/21 08:22:14 General Comments: PATIENT ON SCHEDULED ANTIBIOTICS/ NO ADDITIONAL ANTIBIOTICS PER SURGEON [facility] IntraOp Surgical Procedures Audit 08/14/21 08:22:14 Telemarketer Supervisor: LAFBEAR Modifier: LAFAVEHM 1 <*> Stop 08/14/21 07:48:13 Telemarketer Supervisor: LIAM Modifier: LIAM 1 <*> Start 1 <*> Start [facility] Intra[facility] Time Out Entry 1 Procedure to [...] 09:39 WATTSDR Correct Billing Electronically signed by Lanny [facility] Conversion Treating Engineer Helper Cerner at 03/09/2023 8:33 PM CDT documented in this encounter Plan of Treatment Not on file documented as of this encounter Visit Diagnoses Not on filedocumented in this encounter Care Teams Cupola Melting Supervisor Relationship Specialty Start Date End Date Reji Castro MD [address] [place] [id number] PCP - General Adolescent Medicine 10/02/22 documented as of this encounter
--- OUTSIDE RECORDS SUMMARY | 2025-05-24 09:12 | XMS_ITS | Encounter Summary ---
Author Organization [employer] ([place], [place], [place], [place]) Address [address] [place] [address] Care Team Providers Care Project Engineer Chemicals Name Role Phone Reji Castro MD Primary Care Provider + [phone] Encounter Details Date Type Department Care Team (Late st Contact Info) Description 08/15/2021 Transcribed Document [facility] [place] [address] [place] [address] ProviderDelvin MD [address] [place] [address] [id number] Social History Tobacco Use Types Packs/Day Years Used Date Smoking Tobacco: Never Assessed Comments Unknown Sex and Gender Information Value Date Recorded Sex Assigned at Not on file Legal Sex Female 4:32 PM CDT Gender Identity Not on file Sexual Orientation Not on file documented as of this encounter Miscellaneous Notes * Cerner Conversion Note - Delvin ProviderMD - 08/15/2021 10:34 AM CDT On Going Discharge Planning Entered On: 08/18/2021 10:38 EDT Performed On: 08/15/2021 10:34 EDT by JULIO STEWART RN-Bag Bailer ED Care Management Progress Note Discharge Arrangements [...] : Clinical Condition of Patient JULIO STEWART, RN-Bag Bailer ED - 08/18/2021 10:34 EDT Narrative Progress [...] and send referrals as appropriate. JULIO STEWART, RN-Bag Bailer ED - 08/18/2021 10:34 EDT Electronically signed by Lanny [facility] Conversion Spectrographer Cerner at 03/09/2023 8:33 PM CDT documented in this encounter Plan of Treatment Not on file documented as of this encounter Visit Diagnoses Not on filedocumented in this encounter Care Teams Project Engineer Chemicals Relationship Specialty Start Date End Date Reji Castro MD [address] [place] [id number] PCP - General Adolescent Medicine 10/02/22 documented as of this encounter
--- OUTSIDE RECORDS SUMMARY | 2025-05-24 09:12 | XMS_ITS | Encounter Summary ---
Author Organization [employer] ([place], [place], [place], [place]) Address [address] [place] [address] Care Team Providers Care Php Consultant Name Role Phone Reji Castro MD Primary Care Provider + [phone] Encounter Details Date Type Department Care Team (Late st Contact Info) Description 08/14/2021 Transcribed Document [facility] [place] [address] ProviderDelvin MD [address] [place] [address] [phone] Social History Tobacco Use Types Packs/Day Years Used Date Smoking Tobacco: Never Assessed Comments Unknown Sex and Gender Information Value Date Recorded Sex Assigned at Not on file Legal Sex Female 4:32 PM CDT Gender Identity Not on file Sexual Orientation Not on file documented as of this encounter Miscellaneous Notes * Cerner Conversion Note - Delvin ProviderMD - 08/14/2021 3:04 PM CDT Patient: IRINA [...] mg, 14 mL, 128 mL/Hr, IV Piggyback, [id number]. docusate-senna: 1 Tab, Oral, BID. famotidine: 20 [...] (AUG 14 05:27) 98 (AUG 13 23:19) Labs (Last four charted values) WBC 5.5 (AUG 13) 5.5 (AUG 13) 5.0 (AUG 12) 4.7 (AUG 12) HB L 8.1 (AUG 13) L 8.5 (JUL 22) L 8.5 (JUL 21) L 8.8 (AUG 12) HCT L 26.9 (AUG 13) L 28.7 (AUG 13) L 28.4 (AUG 12) L 28.8 (AUG 12) Plt 206 (AUG 13) 197 (SEP 22) 212 (SEP ) 206 (AUG 12) Na L 135 (JUL 22) 136 (JUL 22) L 134 (JUL 21) L 131 (JUL 20) K 4.2 (AUG 13) 4.5 (JUL 22) 3.6 (AUG 12) 4.1 (JUL 20) Cl 102 (SEP 22) 103 (AUG 13) L 98 (AUG 12) [...] Encounter/Past 24 Hours) Creatinine Level 1.80 mg/dL [place] 08/14/2021 07:29 Bun/Creatinine 19.4 08/14/2021 00:14 Estimated [...] questions. Thank you, Andrea Moraes, PharmD PGY1 Lace Machine Operator Pager: [phone], Ext. [phone] Electronically signed by Lanny, [facility] Conversion Sheriffs Officer Cerner at 03/09/2023 8:49 PM CDT documented in this encounter Plan of Treatment Not on file documented as of this encounter Visit Diagnoses Not on filedocumented in this encounter Care Teams Php Consultant Relationship Specialty Start Date End Date Reji Castro MD [address] [place] [id number] PCP - General Adolescent Medicine 10/02/22 documented as of this encounter
--- OUTSIDE RECORDS SUMMARY | 2025-05-24 09:12 | XMS_ITS | Encounter Summary ---
Author Organization [employer] ([place], [place], [place], [place]) Address [address] [place] [address] Care Team Providers Care Med Aide Name Role Phone Reji Castro MD Primary Care Provider + [phone] Encounter Details Date Type Department Care Team (Late st Contact Info) Description 08/11/2021 Transcribed Document [facility] [place] [address] [place] [address] ProviderDelvin MD [address] [place] [address] [phone] Social History Tobacco Use Types Packs/Day Years [...] Performed On: 08/11/2021 16:19 EDT by MICHAEL NAM, INVENTORY ASSISTANT Triage Across the Room Chief Complaint : Pt presents to the ER reporting she was called for positive blood clutures which showed staph. Pt reports her port is infected. Currently on Omnicef. Pt has a mechanical valve. Has had 180 units of blood due to anemia, ihc is why she has a port. Triage Date/Time : 08/11/2021 16:19 EDT MICHAEL NAM, RN - 08/11/2021 16:19 EDT DCP GENERIC CODE Tracking Acuity : 3 - Urgent Tracking Group : [facility] ED MICHAEL NAM RN - 08/11/2021 [...] theophylline ; Type: Allergy ; Updated By: SHANTELLSYSTEM, HIST_SAWYER; Reviewed Date: 08/11/2021 16:20 EDT Diagnosis Control ED (As Of: 08/11/2021 16:25:12 EDT) Problems(Active) Amblyopia (SNOMED CT :3553417552 ) Name of Problem: Amblyopia ; Recorder: Whitney Razo RN; Confirmation: Confirmed ; Classification: Patient Stated ; Code: [id number] ; Contributor System: PowerChart ; Last Updated: 05/03/2014 19:25 EDT ; Life Cycle Date: 12/02/2013 ; Life Cycle Status: Active ; Vocabulary: SNOMED CT ; Comments: 12/02/2013 0:50 - Whitney Razo RN lazy eye blindness (left eye) Arthritis (SNOMED CT :9310007 ) Name of Problem: Arthritis ; Recorder: Whitney Razo RN; Confirmation: Confirmed ; Classification: Patient Stated ; Code: [id number] ; Contributor System: PowerChart ; Last Updated: 05/03/2014 19:25 EDT ; Life Cycle Date: 12/02/2013 ; Life Cycle Status: Active ; Vocabulary: SNOMED CT Atrial fibrillation (SNOMED CT :48475999 ) Name of Problem: Atrial fibrillation ; Recorder: Whitney Razo RN; Confirmation: Confirmed ; Classification: Patient Stated ; Code: 51576739 ; Contributor System: PowerChart ; Last Updated: 05/03/2014 19:25 EDT ; Life Cycle Date: 12/02/2013 ; Life Cycle Status: Active ; Vocabulary: SNOMED CT Back pain (PNED :[id number] ) Name of Problem: Back pain ; Recorder: Whitney Razo RN; Confirmation: Confirmed ; Classification: Patient Stated ; Code: [id number] ; Contributor System: PowerChart ; Last Updated: 05/07/2014 9:11 EDT ; Life Cycle Date: 12/02/2013 ; Life Cycle Status: Active ; Vocabulary: PNED Bowel obstruction (SNOMED CT :801731043 ) Name of Problem: Bowel obstruction ; Recorder: Whitney Razo RN; Confirmation: Confirmed ; Classification: Patient Stated ; Code: 571828008 ; Contributor System: PowerChart ; Last Updated: 05/03/2014 19:25 EDT ; Life Cycle Date: 12/02/2013 ; Life Cycle Status: Active ; Vocabulary: SNOMED CT Bronchitis (SNOMED CT :93190680 ) Name of Problem: Bronchitis ; Recorder: Whitney Razo RN; Confirmation: Confirmed ; Classification: Patient Stated ; Code: 74834875 ; Contributor System: PowerChart ; Last Updated: 05/03/2014 19:25 EDT ; Life Cycle Date: 12/02/2013 ; Life Cycle Status: Active ; Vocabulary: SNOMED CT Cardiac arrhythmia (SNOMED CT :9032318923 ) Name of Problem: Cardiac arrhythmia ; Recorder: Whitney Razo RN; Confirmation: Confirmed ; Classification: Patient Stated ; Code: 5930702393 ; Contributor System: PowerChart ; Last Updated: 05/03/2014 19:25 EDT ; Life Cycle Date: 12/02/2013 ; Life Cycle Status: Active ; Vocabulary: SNOMED CT Cardiomyopathy (SNOMED CT :228760634 ) Name of Problem: Cardiomyopathy ; Recorder: Whitney Razo RN; Confirmation: Confirmed ; Classification: Patient Stated ; Code: 904344936 ; Contributor System: PowerChart ; Last Updated: 05/03/2014 19:25 EDT ; Life Cycle Date: 12/02/2013 ; Life Cycle Status: Active ; Vocabulary: SNOMED CT COPD (SNOMED CT :17175705 ) Name of Problem: COPD ; Recorder: Whitney Razo RN; Confirmation: Confirmed ; Classification: Patient Stated ; Code: 26371211 ; Contributor System: PowerChart ; Last Updated: 05/07/2014 9:10 EDT ; Life Cycle Date: 12/02/2013 ; Life Cycle Status: Active ; Vocabulary: SNOMED CT Diabetes mellitus (SNOMED CT :448441006 ) Name of Problem: Diabetes mellitus ; Recorder: Whitney Razo RN; Confirmation: Confirmed ; Classification: Patient Stated ; Code: 778965981 ; Contributor System: PowerChart ; Last Updated: 05/03/2014 19:25 EDT ; Life Cycle Date: 12/02/2013 ; Life Cycle Status: Active ; Vocabulary: SNOMED CT Diabetes mellitus type II (SNOMED CT :13869071 ) Name of Problem: Diabetes mellitus type II ; Recorder: Whitney Razo RN; Confirmation: Confirmed ; Classification: Patient Stated ; Code: 71284125 ; Contributor System: PowerChart ; Last Updated: 05/07/2014 9:12 EDT ; Life Cycle Date: 12/02/2013 ; Life Cycle Status: Active ; Vocabulary: SNOMED CT Diverticulosis (SNOMED CT :4445314377 ) Name of Problem: Diverticulosis ; Recorder: Whitney Razo RN; Confirmation: Confirmed ; Classification: Patient Stated ; Code: 5550354855 ; Contributor System: PowerChart ; Last Updated: 05/03/2014 19:25 EDT ; Life Cycle Date: 12/02/2013 ; Life Cycle Status: Active ; Vocabulary: SNOMED CT Edema (SNOMED CT :643940127 ) Name of Problem: Edema ; Recorder: Whitney Razo RN; Confirmation: Confirmed ; Classification: Patient Stated ; Code: 470994376 ; Contributor System: PowerChart ; Last Updated: 05/03/2014 19:25 EDT ; Life Cycle Date: 12/02/2013 ; Life Cycle Status: Active ; Vocabulary: SNOMED CT ; Comments: 12/02/2013 1:45 - Whitney Razo RN BLE Fibromyalgia (SNOMED CT :41185769 ) Name of Problem: Fibromyalgia ; Recorder: Whitney Razo RN; Confirmation: Confirmed ; Classification: Patient Stated ; Code: 54280710 ; Contributor System: PowerChart ; Last Updated: [...] GERD - Gastro-esophageal reflux disease (SNOMED CT :4496114259 ) Name of Problem: GERD - Gastro-esophageal reflux disease ; Recorder: Whitney Razo RN; Confirmation: Confirmed ; Classification: Patient Stated ; Code: 6029625938 ; Contributor System: PowerChart ; Last Updated: 05/07/2014 9:09 EDT ; Life Cycle Date: 12/02/2013 ; Life Cycle Status: Active ; Vocabulary: SNOMED CT Heart failure (SNOMED CT :209740027 ) Name of Problem: Heart failure ; Recorder: Whitney Razo RN; Confirmation: Confirmed ; Classification: Patient Stated ; Code: 171008251 ; Contributor System: PowerChart ; Last Updated: 05/03/2014 19:25 EDT ; Life Cycle Date: 12/02/2013 ; Life Cycle Status: Active ; Vocabulary: SNOMED CT Heart valve (SNOMED CT :415850874 ) Name of Problem: Heart valve ; Recorder: Whitney Razo RN; Confirmation: Confirmed ; Classification: Patient Stated ; Code: 703862557 ; Contributor System: PowerChart ; Last Updated: 05/07/2014 9:14 EDT ; Life Cycle Date: 12/02/2013 ; Life Cycle Status: Active ; Vocabulary: SNOMED CT Hepatomegaly (SNOMED CT :243482146 ) Name of Problem: Hepatomegaly ; Recorder: Whitney Razo RN; Confirmation: Confirmed ; Classification: Patient Stated ; Code: 942689888 ; Contributor System: PowerChart ; Last Updated: 05/03/2014 19:25 EDT ; Life Cycle Date: 12/02/2013 ; Life Cycle Status: Active ; Vocabulary: SNOMED CT High blood pressure (SNOMED CT :41237407 ) Name of Problem: High blood pressure ; Recorder: Whitney Razo RN; Confirmation: Confirmed ; Classification: Patient Stated ; Code: 70388304 ; Contributor System: PowerChart ; Last Updated: 05/03/2014 19:25 EDT ; Life Cycle Date: 12/02/2013 ; Life Cycle Status: Active ; Vocabulary: SNOMED CT Hyperlipidemia (SNOMED CT :21996495 ) Name of Problem: Hyperlipidemia ; Recorder: Whitney Razo RN; Confirmation: Confirmed ; Classification: Patient Stated ; Code: 03774612 ; Contributor System: PowerChart ; Last Updated: 05/03/2014 19:25 EDT ; Life Cycle Date: 12/02/2013 ; Life Cycle Status: Active ; Vocabulary: SNOMED CT Lazy eye (SNOMED CT :721416017 ) Name of Problem: Lazy eye ; Recorder: Whitney Razo RN; Confirmation: Confirmed ; Classification: Patient Stated ; Code: 238222838 ; Contributor System: PowerChart ; Last Updated: 05/03/2014 19:25 EDT ; Life Cycle Date: 12/02/2013 ; Life Cycle Status: Active ; Vocabulary: SNOMED CT ; Comments: 12/02/2013 0:49 - Whitney Razo RN lazy eye blindness (left eye) Myocardial infarction (SNOMED CT :70182328 ) Name of Problem: Myocardial infarction ; Recorder: Whitney Razo RN; Confirmation: Confirmed ; Classification: Patient Stated ; Code: 50016927 ; Contributor System: PowerChart ; Last Updated: [...] Cycle Status: Active Ovarian cyst (SNOMED CT :992366008 ) Name of Problem: Ovarian cyst ; Recorder: Whitney Razo RN; Confirmation: Confirmed ; Classification: Patient Stated ; Code: 422281217 ; Contributor System: PowerChart ; Last Updated: 05/03/2014 19:25 EDT ; Life Cycle Date: 12/02/2013 ; Life Cycle Status: Active ; Vocabulary: SNOMED CT Renal calculus (SNOMED CT :158400596 ) Name of Problem: Renal calculus ; Recorder: Whitney Razo RN; Confirmation: Confirmed ; Classification: Patient Stated ; Code: 099938090 ; Contributor System: PowerChart ; Last Updated: 05/03/2014 19:25 EDT ; Life Cycle Date: 12/02/2013 ; Life Cycle Status: Active ; Vocabulary: SNOMED CT Restless legs syndrome (SNOMED CT :89839626 ) Name of Problem: Restless legs syndrome ; Recorder: Whitney Razo RN; Confirmation: Confirmed ; Classification: Patient Stated ; Code: 73037721 ; Contributor System: PowerChart ; Last Updated: 05/03/2014 19:25 EDT ; Life Cycle Date: 12/02/2013 ; Life Cycle Status: Active ; Vocabulary: SNOMED CT Thyroid disease (SNOMED CT :900378038 ) Name of Problem: Thyroid disease ; Recorder: Whitney Razo RN; Confirmation: Confirmed ; Classification: Patient Stated ; Code: 895292317 ; Contributor System: [employer] ; Last Updated: 05/03/2014 19:25 EDT ; Life Cycle Date: 12/02/2013 ; Life Cycle Status: Active ; Vocabulary: SNOMED CT Diagnoses(Active) Medical screening exam Date: 08/11/2021 ; Diagnosis Type: Reason For Visit ; Confirmation: Complaint of ; Clinical Dx: Medical screening exam ; Classification: Medical ; Clinical Service: Emergency medicine ; Code: PNED ; Probability: 0 ; Diagnosis Code: [id number] ED Height and Weight Height Source : Stated Height Entry Format : Hall Height, Feet : 5 ft(Converted to: 152 cm, 60 Inch) Height, Inches : 4 Inch(Converted to: 0 ft 4 Inch, 10.16 cm) Clinical Height : 162.56 cm Weight Source, ED : Critical estimated dosing weight Weight Entry Format : Hall Weight, Pounds : 190 lb Clinical Dosing Weight : 86.36 kg Body Surface Area (BSA) : 1.92 m2 Body Mass Index : 32.7 kg/m2 (HI) [place] Body Weight (IBW) : 54.3 kg MICHAEL NAM RN - 08/11/2021 16:19 EDT documented in this encounter Plan of Treatment Not on file documented as of this encounter Visit Diagnoses Not on filedocumented in this encounter Care Teams Med Aide Relationship Specialty Start Date End Date Reji Castro MD [address] [place] [id number] PCP - General Adolescent Medicine 10/02/22 documented as of this encounter
--- OUTSIDE RECORDS SUMMARY | 2025-05-24 09:12 | XMS_ITS | Encounter Summary ---
Author Organization [employer] ([place], [place], [place], [place]) Address [address] [place] [address] Care Team Providers Care Irrigation Laborer Name Role Phone Reji Castro MD Primary Care Provider + [phone] Encounter Details Date Type Department Care Team (Late st Contact Info) Description 08/19/2021 Transcribed Document [facility] [place] [facility] [place] [address] ProviderDelvin MD [address] [place] [address] [id number] Social History Tobacco Use Types Packs/Day Years Used Date Smoking Tobacco: Never Assessed Comments Unknown Sex and Gender Information Value Date Recorded Sex Assigned at Not on file Legal Sex Female 4:32 PM CDT Gender Identity Not on file Sexual Orientation Not on file documented as of this encounter Miscellaneous Notes * Cerner Conversion Note - Historical ProviderMD - 08/19/2021 4:16 PM CDT Patient: [...] # 0.34 x10(3)/uL (Low) 08/19/2021 11:06 EDT [place] % 7.3 % 08/19/2021 11:06 EDT [place] # 0.79 K/uL 08/19/2021 11:06 EDT E[place] [...] (High) 08/18/2021 18:32 EDT Electronically signed by Lanny, [facility] Conversion Fish Warden Cerner at 03/09/2023 8:42 PM CDT documented in this encounter Plan of Treatment Not on file documented as of this encounter Visit Diagnoses Not on filedocumented in this encounter Care Teams Irrigation Laborer Relationship Specialty Start Date End Date Reji Castro MD [address] [place] [id number] PCP - General Adolescent Medicine 10/02/22 documented as of this encounter
--- OUTSIDE RECORDS SUMMARY | 2025-05-24 09:13 | XMS_ITS | Encounter Summary ---
Author Organization [employer] ([place], [place], [place], [place]) Address [address] [place] [address] Care Team Providers Care Traffic Analyst Name Role Phone Reji Castro MD Primary Care Provider + [phone] Encounter Details Date Type Department Care Team (Late st Contact Info) Description 08/15/2021 Transcribed Document [facility] [place] [address] ProviderDelvin MD [address] [place] [address] [id number] Social History Tobacco Use Types Packs/Day Years Used Date Smoking Tobacco: Never Assessed Comments Unknown Sex and Gender Information Value Date Recorded Sex Assigned at Not on file Legal Sex Female 4:32 PM CDT Gender Identity Not on file Sexual Orientation Not on file documented as of this encounter Miscellaneous Notes * [employer]ner Conversion Note - Historical ProviderMD - 08/15/2021 10:11 AM CDT Pain Assessment Entered On: 08/15/2021 18:09 EDT Performed On: 08/15/2021 15:23 EDT by Nataly Watkins, RN Intervention Information: acetaminophen-HYDROcodone Performed by Nataly [...] on filedocumented in this encounter Care Teams Traffic Analyst Relationship Specialty Start Date End Date Reji Castro MD [address] [place] [id number] PCP - General Adolescent Medicine 10/02/22 documented as of this encounter
--- OUTSIDE RECORDS SUMMARY | 2025-05-24 09:13 | XMS_ITS | Encounter Summary ---
Author Organization [employer] ([place], [place], [place], [place]) Address [address] [place] [address] Care Team Providers Care Test Lab Technician Name Role Phone Reji Castro MD Primary Care Provider + [phone] Encounter Details Date Type Department Care Team (Late st Contact Info) Description 08/12/2021 Transcribed Document [facility] [place] [facility] [place] [address] ProviderDelvin MD [address] [place] [address] [id number] Social History Tobacco Use Types Packs/Day Years [...] Performed On: 08/12/2021 5:00 EDT by Morelia Jose [facility] Unit Coord Height and Weight, Routine Routine Weight Source : Standing scale Routine Weight Entry Format : [place] Routine Weight, Pounds : 223 lb Routine Weight, Ounces : 4 oz Routine Weight Calculation : 101.48 kg Height Source : Stated Height Entry Format : [place] Height, Feet : 5 ft Height, Inches : 4 Inch Clinical Height : 162.56 cm Body Surface Area (BSA), Routine : 2.05 m2 Body Mass Index (BMI), Routine : 38.4 kg/m2 Morelia Jose Necktie Maker-[facility] - 08/12/2021 5:18 EDT Electronically signed by Lanny, [facility] Conversion Landscape Drafter Cerner at 03/09/2023 8:49 PM CDT documented in this encounter Plan of Treatment Not on file documented as of this encounter Visit Diagnoses Not on filedocumented in this encounter Care Teams Test Lab Technician Relationship Specialty Start Date End Date Reji Castro MD [address] [place] [address] PCP - General Adolescent Medicine 10/02/22 documented as of this encounter
--- OUTSIDE RECORDS SUMMARY | 2025-05-24 09:13 | XMS_ITS | Encounter Summary ---
Author Organization [employer] ([place], [place], [place], [place]) Address [address] [place] [address] Care Team Providers Care Mri Supervisor Name Role Phone Reji Castro MD Primary Care Provider + [phone] Encounter Details Date Type Department Care Team (Late st Contact Info) Description 08/25/2021 Transcribed Document [facility] [place] [facility] [place] [address] ProviderDelvin MD [address] [place] [address] [phone] Social History Tobacco Use Types Packs/Day Years [...] cefTRIAXone: 2 Gram, 100 mL/Hr, IV Piggyback, [id number]. citalopram: 40 mg, Oral, Daily. diphenhydrAMINE: 25 [...] (AUG 25) 5.6 (AUG 03) 6.1 (AUG 02) 7.0 (AUG 22) HB L 7.7 (AUG 04) L 7.8 (AUG 03) L 7.6 (AUG 02) L 7.5 (AUG 22) HCT L 26.5 (AUG 04) L 26.6 (AUG 03) L 26.0 (OCT 02) L 25.6 (AUG [...] questions. 7.) Pt will be transferred to -309 2/2 chest pain - will pass off to clinical pharmacy team covering that floor. Thank you, Andrea Moraes, PharmD PGY1 Software Analyst Pager: [phone], [phone] documented in this encounter Plan of Treatment Not on file documented as of this encounter Visit Diagnoses Not on filedocumented in this encounter Care Teams Mri Supervisor Relationship Specialty Start Date End Date Reji Castro MD [address] [place] [id number] PCP - General Adolescent Medicine 10/02/22 documented as of this encounter
--- OUTSIDE RECORDS SUMMARY | 2025-05-24 09:13 | XMS_ITS | Encounter Summary ---
Author Organization [employer] ([place], [place], [place], [place]) Address [address] [place] [address] Care Team Providers Care Buffet Waiter/Waitress Name Role Phone Reji Castro MD Primary Care Provider + [phone] Encounter Details Date Type Department Care Team (Late st Contact Info) Description 08/12/2021 Transcribed Document [facility] [place] [facility] [place] [address] ProviderDelvin MD [address] [place] [address] [phone] Social History Tobacco Use Types Packs/Day Years [...] Author: CHELI BEASLEY MD-CAR Basic Information Primary Doping Supervisor: Dr. Delmar Geronimo Fisher Trawl Net: MD Nestor Chief Complaint Rule out endocarditis/h.o [...] She followed up that week with her Self Contained Behavior Unit Teacher, Dr. Thapa, who aspirated purulence from the port. 10-15 min later, she was driving home and developed fever 103, chills, headache and body aches. Presented to [facility] where she was admitted for IV [...] ID evaluation. She presented for evaluation at [facility]. In the ER she was found to [...] Instructions Problem list: All Problems Amblyopia / 8892011204 / Confirmed Arthritis / 0805229 / Confirmed Atrial fibrillation / 33436563 / Confirmed AIHA (autoimmune hemolytic anemia) / 0020241007 / Confirmed Back pain / [id number] / Confirmed Bowel obstruction / 936349189 / Confirmed Bronchitis / 49323664 / Confirmed Cardiac arrhythmia / 9967002850 / Confirmed Cardiomyopathy / 002236461 / Confirmed COPD / 01786376 / Confirmed Diabetes mellitus / 564714981 / Confirmed Diabetes mellitus type II / 12051774 / Confirmed Diverticulosis / 8237401246 / Confirmed Edema / 471435196 / Confirmed Fibromyalgia / 46178809 / Confirmed frequent headache / Confirmed GERD - Gastro-esophageal reflux disease / 8338490087 / Confirmed Heart failure / 229990335 / Confirmed Heart valve / 519265135 / Confirmed Hepatomegaly / 194277676 / Confirmed High blood pressure / 80773491 / Confirmed History of obstructive sleep apnea / 03250983 / Confirmed Hyperlipidemia / 75798243 / Confirmed Anemia, iron deficiency / 296852225 / Confirmed Lazy eye / 940243607 / Confirmed Myocardial infarction / 92321309 / Confirmed neuropathy hands and feet / Confirmed Ovarian cyst / 501193410 / Confirmed Renal calculus / 055635151 / Confirmed Restless legs syndrome / 14479617 / Confirmed Thyroid disease / 418972742 / Confirmed Histories No education data available. Social & Psychosocial Habits Tobacco 12/18/2013 Tobacco Use Within Last Twelve Months No Smoking Status Former smoker Years of Tobacco Use 30 Month Tobacco Last Used quit 2005 Past Medical History: Active Atrial fibrillation (59388192) Bioprosthetic mitral valve replacement (289405648) Chronic kidney disease (7551119643) COPD - Chronic obstructive pulmonary disease (926539430) HLD - Hyperlipidemia (550578961) HTN - Hypertension (4178589452) Family History: Reviewed. Non-contributory. Procedure history: Replacement, mitral valve, with cardiopulmonary bypass (39345) on 01/19/2006 at 40 Years. left jaw pin. sternotomy. hernia repair, abdominal. sigmoid colon resection. Tendon sheath incision (eg, for trigger finger) (00709). jaw surgery, left. great toe surger, left. [...] of motion, Normal strength. Integumentary: Warm, Dry, Skelp. Neurologic: Alert, Oriented. Psychiatric: Cooperative, Appropriate mood & affect. Review / Management AUG 12 00:22 L 134 L 98 H 69 / H 134 3.6 29 H 2.40 \ AUG 12 00:22 \ L 8.7 / 6.7 201 / L 28.3 \ Cardiac Markers (Current Encounter/Past 24 Hours) ProBNP 766 pg/mL [place] 08/12/2021 01:12 Blood Gases (Current Encounter/Past 24 Hours) No Blood Gas Results Found (Past 24 Hours) Radiology Results (Last 48 hours) [id number] -- 08/11/2021 21:21 CR Chest 1 Vw [...] admission for coagulase negative staph bacteremia Admitted [facility] 07/12, Negative CHUCHO, TTE for vegetation [...] mechanical causes of hemolysis. Obtain records from [facility]. Check haptoglobin, LDH, reticulocyte count. Continue other current CV meds. Electronically signed by Lanny, [facility] Conversion Electronic Heat Seal Operator Cerner at 03/09/2023 8:33 PM CDT documented in this encounter Plan of Treatment Not on file documented as of this encounter Visit Diagnoses Not on filedocumented in this encounter Care Teams Buffet Waiter/Waitress Relationship Specialty Start Date End Date Reji Castro MD [address] [place] [address] PCP - General Adolescent Medicine 10/02/22 documented as of this encounter
--- OUTSIDE RECORDS SUMMARY | 2025-05-24 09:13 | XMS_ITS | Encounter Summary ---
Author Organization [employer] ([place], [place], [place], [place]) Address [address] [place] [address] Care Team Providers Care Wearing Apparel Shaker Name Role Phone Reji Castro MD Primary Care Provider + [phone] Encounter Details Date Type Department Care Team (Late st Contact Info) Description 08/19/2021 Transcribed Document [facility] [place] [address] [place] [address] ProviderDelvin MD [address] [place] [address] [phone] Social History Tobacco Use Types Packs/Day Years Used Date Smoking Tobacco: Never Assessed Comments Unknown Sex and Gender Information Value Date Recorded Sex Assigned at Not on file Legal Sex Female 4:32 PM CDT Gender Identity Not on file Sexual Orientation Not on file documented as of this encounter Miscellaneous Notes * [employer]ner Conversion Note - Historical ProviderMD - 08/19/2021 5:00 PM CDT Chart [...] on filedocumented in this encounter Care Teams Wearing Apparel Shaker Relationship Specialty Start Date End Date Reji Castro MD [address] [place] [id number] PCP - General Adolescent Medicine 10/02/22 documented as of this encounter
--- OUTSIDE RECORDS SUMMARY | 2025-05-24 09:13 | XMS_ITS | Encounter Summary ---
Author Organization [employer] ([place], [place], [place], [place]) Address [address] [place] [address] Care Team Providers Care Skinning Machine Feeder Name Role Phone Reji Castro MD Primary Care Provider [phone] Encounter Details Date Type Department Care Team (Late st Contact Info) Description 08/17/2021 Transcribed Document [facility] Radiology [address] [place] [address] Loren Solorzano MD [address] [place] [address] [place] [address] Social History Tobacco Use Types Packs/Day Years [...] mg, 14 mL, 128 mL/Hr, IV Piggyback, [id number] Dextrose 50% injection: 12.5 Gram, IV Push, [...] mL 700 mg 14 mL, IV Piggyback, [id number] famotidine 20 mg tab 20 mg 1 [...] Bioprosthetic mitral valve replacement / SNOMED CT 913971895 / Confirmed Chronic kidney disease / SNOMED CT 7059422120 / Confirmed COPD - Chronic obstructive pulmonary disease / SNOMED CT 901583371 / Confirmed History of obstructive sleep apnea / IMO 63615903 / Confirmed HLD - Hyperlipidemia / SNOMED CT 871208090 / Confirmed HTN - Hypertension / SNOMED CT 6651079214 / Confirmed Canceled: Atrial fibrillation / SNOMED CT 73980990, Active Problems (25) AIHA (autoimmune hemolytic anemia) [...] Last Charted Minimum Maximum Temp 97.6 (AUG 17 05:21) 97.6 (AUG 17 05:21) 98 (AUG 16 [...] 23) 206 (SEP 22) Na L 135 (AUG 17) 137 (SEP 25) 137 (SEP 24) L 135 (SEP 22) K 4.4 (SEP ) 4.4 (SEP 25) 4.4 (SEP 24) 4.2 (SEP 22) Cl 104 (SEP ) 106 (SEP 25) 104 (SEP 24) 102 (SEP 22) CO2 27 (SEP ) 25 (SEP 25) 27 (SEP 24) 29 (SEP 22) BUN 18 (AUG 17) H 23 (SEP 25) H 28 (SEP 24) H 35 (SEP 22) Cr H 1.20 (AUG 17) H 1.40 (SEP 25) H 1.80 (SEP 24) H 1.80 (SEP 22) Glu R H 126 (AUG 17) H 112 (SEP 25) H 139 (SEP 24) H 114 (SEP 22) Ca 8.9 (SEP ) 9.5 (SEP 25) 9.4 (SEP 24) 9.1 (JUL 22) Lactic .93 (AUG 12) L .73 (AUG 11) PT H 14.6 (AUG 17) H 17.2 (AUG 16) H 18.2 (AUG 15) H 17.2 (AUG 14) INR H 1.4 (AUG 17) H 1.7 (AUG 16) H 1.8 (JUL 24) H 1.7 (AUG 14) PTT H 39.6 (SEP 20) AST 19 (AUG 15) 18 (AUG 13) 17 (AUG 13) 16 (AUG 12) ALT 17 (AUG 15) 17 (AUG 13) 19 (AUG 13) 23 (SEP ) ALK P 101 (SEP 24) 102 (SEP 22) 102 (SEP ) 110 (AUG 12) T Bili 0.4 (AUG 15) 0.4 (AUG 13) 0.5 (AUG 13) 0.6 (AUG 12) PTN 7.0 (JUL 24) 7.3 (SEP ) 6.9 (SEP ) 7.6 (AUG 12) ALB 3.5 (JUL 24) 3.8 (SEP ) 3.9 (SEP ) 3.9 (SEP ) Lipase 224 (AUG 13) Troponin <0.015 (SEP ) <0.015 (SEP 20) <0.015 (SEP ) . Medication Changes from Previous Midnight to [...] Hold home meds SSI #Depression Celexa #Pain [place] 10 mg every 6 hours as needed [...] on filedocumented in this encounter Care Teams Skinning Machine Feeder Relationship Specialty Start Date End Date Reji Castro MD [address] [place] [address] PCP - General Adolescent Medicine 10/02/22 documented as of this encounter
--- OUTSIDE RECORDS SUMMARY | 2025-05-24 09:13 | XMS_ITS | Encounter Summary ---
Author Organization [employer] ([place], [place], [place], [place]) Address [address] [place] [address] Care Team Providers Care Tobacco Grader Name Role Phone Reji Castro MD Primary Care Provider + [phone] Encounter Details Date Type Department Care Team (Late st Contact Info) Description 08/19/2021 Transcribed Document [facility] [place] [facility] Family Medicine [address] [place] [address] ProviderDelvin MD [address] [place] [address] [phone] Social History Tobacco Use Types Packs/Day Years Used Date Smoking Tobacco: Never Assessed Comments Unknown Sex and Gender Information Value Date Recorded Sex Assigned at Not on file Legal Sex Female 4:32 PM CDT Gender Identity Not on file Sexual Orientation Not on file documented as of this encounter Miscellaneous Notes * Cerner Conversion Note - Delvin ProviderMD - 08/19/2021 7:51 AM CDT [facility] Main OR IntraOp Summary Primary Physician: NENA PEARSON MD-TATYANA Finalized Date/Time: 08/20/21 09:11:26 Pt. Name: TAMAYO IRINAMARCIO GhoshO.B./Sex: 1965 Female Med Rec #: [id number] Physician: VINCE BELLO MD Financial #: [id number] Pt. Type: I Room/Bed: [facility]/ Admit/Disch: 08/11/21 21:21:00 - Institution: [facility] IntraOp Case Attendance Entry 1 Entry 2 Entry 3 Case Attendee NENA PEARSON MD-ERNESTO FISCHER APRN, BURBERRY, KEITH MD-ANS BENCH PRECISION ASSEMBLER Role Performed Surgeon/Proceduralist, BENCH PRECISION ASSEMBLER/Nurse Chair Inspector And Leveler Anesthesiologist of First Record Time In 08/19/21 [...] YULIA JIM, SCRUB Josh Rivera, ALICIA SOTELO, CLAY DRY PRESS OPERATOR/CSA TECH Role Performed Live Hanger, First Professor Of Chemical Engineering, First Scrub, First Time In 08/19/21 07:29:00 08/19/21 07:29:00 08/19/21 07:29:00 Time Out 08/19/21 08:24:00 08/19/21 08:24:00 08/19/21 08:24:00 Procedure Vascular Access Vascular Access Vascular Access Insertion Insertion Insertion Other Attendee Superficial Wound Closed By: Last Modified By: Josh Rivera RN Pantano, Scott, Josh Perez, JEREMIAH 08/19/21 08:35:46 08/19/21 08:35:46 08/19/21 08:35:46 Entry 7 Case Attendee David Greene, Monomer Recovery Operator Role Performed Security Alarm Installer Time In 08/19/21 07:55:00 Time Out 08/19/21 08:07:00 Procedure Vascular Access Insertion Other Attendee Superficial Wound Closed By: Last Modified By: Josh Rivera RN 08/19/21 08:35:46 [facility] IntraOp Case Attendance Audit 08/19/21 08:35:46 Medical Appliance Maker: [email or web address] Modifier: JAZLYN 1 <+> Time Out [...] <*> Procedure Vascular Access Insertion 08/19/21 08:07:27 Medical Appliance Maker: [email or web address] Modifier: PANTANOS 1 <*> Procedure Vascular Access Insertion 2 <*> Procedure Vascular Access Insertion 3 <*> Procedure Vascular Access Insertion 4 <*> Procedure Vascular Access Insertion 5 <*> Procedure Vascular Access Insertion 6 <*> Procedure Vascular Access Insertion 7 <+> Time In 7 <+> Time Out 7 <*> Procedure Vascular Access Insertion 08/19/21 08:04:07 Medical Appliance Maker: [email or web address] Modifier: PANTANOS <+> 7 Case Attendee <+> 7 Role Performed <+> 7 Procedure 08/19/21 08:00:27 Medical Appliance Maker: [email or web address] Modifier: MAKENNAANOS 1 <*> Procedure Vascular Access Insertion 2 <*> Procedure Vascular Access Insertion 3 <*> Procedure Vascular Access Insertion 4 <+> Time In 4 <*> Procedure Vascular Access Insertion 5 <+> Time In 5 <*> Procedure Vascular Access Insertion 6 <+> Time In 6 <*> Procedure Vascular Access Insertion 08/19/21 07:52:21 Medical Appliance Maker: [email or web address] Modifier: PANTANOS <+> 1 Procedure 2 <+> Time In 2 <*> Procedure Vascular Access Insertion 3 <+> Time In 3 <*> Procedure Vascular Access Insertion <+> 4 Case Attendee <+> 4 Role Performed <+> 4 Procedure <+> 5 Case Attendee <+> 5 Role Performed <+> 5 Procedure <+> 6 Case Attendee <+> 6 Role Performed <+> 6 Procedure [facility] IntraOp Case Times Entry 1 Patient In Room Time 08/19/21 07:29:00 Out Room Time 08/19/21 08:24:00 Anesthesia Start Time 08/19/21 07:29:00 Stop Time 08/19/21 08:24:00 Surgery / Procedure Times Start Time 08/19/21 07:51:00 Stop Time 08/19/21 08:17:00 Last Modified By: Josh Rivera RN 08/19/21 08:24:22 [facility] IntraOp Case Times Audit 08/19/21 08:24:22 Medical Appliance Maker: [email or web address] Modifier: MAKENNAANOS <+> 1 Out Room Time <+> 1 Stop Time <+> 1 Stop Time 08/19/21 07:51:02 Medical Appliance Maker: [email or web address] Modifier: JUDITHS <+> 1 Start Time [facility] IntraOp Cautery Entry 1 ESU Identification Cautery Type Monopolar ESU ID Number [id number] ID Type Hospital Number Cautery Settings Cut Setting 30 Coag Setting 30 ESU Grounding Pad Ground Pad Type Adult Grounding Pad Site Right Buttock Grounding Pad Josh Rivera RN Applied By Grounding Pad Site Intact Skin Condition Before Cautery Grounding Pad Site Intact Skin Condition After Cautery Last Modified By: Josh Rivera RN 08/19/21 07:52:52 [facility] IntraOp Communication Entry 1 Communication To Family/Significant other Communication By Josh Rivera RN Last Modified By: Josh Rivera RN 08/19/21 07:58:45 [facility] IntraOp Counts Verification Entry 1 Procedure Vascular Access Insertion Count Info Count Type Sponge, Sharps, Miscellaneous Counts Verification Baseline/pre-procedure Sequence Count Results Correct, surgeon notified Counts Performed By Count Performed By ALICIA MACIAS SCRUB (Scrub) TECH Count Performed By Josh Rivera RN (RN) Last Modified By: Josh Rivera RN 08/19/21 07:53:18 [facility] IntraOp Counts Final Entry 1 Procedure Vascular Access Insertion Final Count Info Count Type Sponge, Sharps, Miscellaneous Counts Verification Skin Closure/end of Sequence procedure Count Results Correct, surgeon notified Counts Performed By Count Performed By ALICIA MACIAS SCRUB (Scrub) TECH Count Performed By Josh Rivera RN (RN) Last Modified By: Josh Rivera RN 08/19/21 07:53:41 [facility] IntraOp Departure from OR Entry 1 Integumentary Assessment Integumentary WDL Assessment WDL Transfer/Handoff Transfer to Nursing unit Handoff Method Bedside/Face to face, Online nursing summary Post-op Transport Stretcher/Gub[place]erney Via Patient Transport ERNESTO SOUSA APRN, Accompanied by BENCH PRECISION ASSEMBLER Last Modified By: Josh Rivera RN 08/19/21 08:02:48 [facility] IntraOp Departure from OR Audit 08/19/21 08:02:48 Medical Appliance Maker: [email or web address] Modifier: JAZLYN 1 <*> Transfer to Ambulatory unit, Phase II 1 <+> Patient Transport Accompanied by [facility] IntraOp Dressing and Packing Entry 1 Type Dressing Location OPSITE Wound Dressing Item Skin Closure Glue Applied By YULIA JIM SCRUB TECH/OCTAVIO Last Modified By: Josh Rivera RN 08/19/21 07:54:28 [facility] IntraOp Fire Risk Assessment [...] Modified By: Josh Rivera RN 08/19/21 07:53:55 [facility] Intra General Case Hot Metal Mixer Operator 1 Case Information OR OR 06 [facility] Case Level 1 Room Verified Yes Wound Class I - Clean Specialty General ASA Class 4 Diagnosis Preop Diagnosis IV Access Postop Same As Preop Yes Postop Diagnosis IV Access Last Modified By: Josh Rivera RN 08/19/21 07:58:27 [facility] IntraOp Intraoperative Assessment Entry [...] Modified By: Josh Rivera RN 08/19/21 07:59:09 [facility] IntraOp Intraoperative Equipment Entry 1 Type Monitoring Equipment Intraop Monitoring Electrocardiogram Three lead placement (ECG) Electrode Placement Blood Pressure Non-Invasive BP Device Source Blood Pressure Arm, right upper Location Pulse Oximeter Hand, left Probe Site Antiembolic Devices Scopes Photo/Video Documentation Last Modified By: Josh Rivera RN 08/19/21 07:59:29 [facility] IntraOp Medication Admin Entry 1 Entry 2 Medication/Irrigant LIDOCAINE 1% WITH EPI Heplock 100units/ml 5ml 1:100,000 vial - [id number] Combo Med List Time Administered 08/19/21 07:59:00 08/19/21 07:59:00 Route of LOCAL HEP LOCK Administration Dose Dose 30 10 Unit of Measure ml ml Volume Administered By NENA PEARSON MD-SUR HARRIS, JOHN M, MD-SUR Procedure Irrigation Irrigant Volume In Irrigant Volume Out Last Modified By: Josh Rivera RN Pantano, Scott, RN 08/19/21 08:00:16 08/19/21 08:00:16 [facility] IntraOp Patient Positioning Entry [...] UNP'S Positioned By NENA PEARSON MD-SUR, ERNESTO SOUSA, SINDHU, BENCH PRECISION ASSEMBLER, Josh Rivera RN Position Verified Positioning Yes Verified by Anesthesia Positioning Yes Verified by Surgeon Last Modified By: Josh Rivera RN 08/19/21 07:54:11 [facility] IntraOp Sign In Entry [...] Modified By: Josh Rivera RN 08/19/21 08:00:24 [facility] IntraOp Sign Out Entry [...] Modified By: Josh Rivera RN 08/19/21 08:35:34 [facility] IntraOp Sign Out Audit 08/19/21 08:35:34 Medical Appliance Maker: [email or web address] Modifier: PANTANOS <+> 1 RN Sign Out Signature <+> 1 RN Sign Out Signature Date/Time <+> 1 Urinary Catheter Documented in IView [facility] IntraOp Skin Prep Entry 1 Procedure Vascular Access Insertion Prescribed N/A Pre-Surgical Prep Completed Prep Area CHIN THRU CHEST INCLUDE BILATERAL SHOULDERS Intraop Prep Prep Agents Chloraprep Hair Removal Last Modified By: Josh Rivera RN 08/19/21 07:58:31 [facility] IntraOp Surgical Procedures Entry 1 Procedure Vascular Access Insertion Additional (PORT A CATH PLACEMENT) Procedure Description Primary Procedure Yes Primary Surgeon NENA PEARSON MD-TATYANA Start 08/19/21 07:51:00 Stop 08/19/21 08:17:00 Anesthesia Type MAC Specialty General Wound Class I - Clean Last Modified By: Josh Rivera RN 08/19/21 08:35:09 [facility] IntraOp Surgical Procedures Audit 08/19/21 08:35:09 Medical Appliance Maker: [email or web address] Modifier: MAKENNAANOS <+> 1 Stop [facility] IntraOp Temp Regulation Devices Entry 1 Temp Regulation Temperature Warm blankets Regulation Device Temperature Full body Regulation Site Temperature ERNESTO SOUSA APRN, Regulation Device BENCH PRECISION ASSEMBLER Applied by Last Modified By: Josh Rivera RN 08/19/21 07:54:19 [facility] IntraOP Time Out Entry [...] Modified By: Josh Rivera RN 08/19/21 08:02:27 [facility] IntraOP Time Out Audit 08/19/21 08:02:27 Medical Appliance Maker: [email or web address] Modifier: PANTANOS 1 <+> Beta Alessandra Administered 1 <*> Procedure to be Performed Vascular Access Insertion 08/19/21 08:00:58 Medical Appliance Maker: [email or web address] Modifier: PANTANOS 1 <+> All activity [...] <+> Team Verbally Confirms Information 08/19/21 08:00:32 Medical Appliance Maker: [email or web address] Modifier: PANTANOS <+> 1 Procedure to be Performed [facility] IntraOp X-Ray and Images Entry 1 X-Ray/Imaging Type Fluoroscopy Fluoroscopy Type C-Arm Site CHEST Pest Control Service Sales Agent Name David Greene, Monomer Recovery Operator Protective Devices Yes Used Last Modified By: Josh Rivera RN 08/19/21 08:04:48 Case Comments <None> Finalized By: WILNER DUPONT Document Signatures Signed By: Josh Rivera RN 08/19/21 08:35 WILNER DUPONT 08/20/21 09:11 Unfinalized History Date/Time Username Reason for Unfinalizing Freetext Reason for Unfinalizing 08/20/21 09:10 WATTORSTEN Correct Billing Electronically signed by [facility] Conversion Insurance Special Agent Cerner at 03/09/2023 8:49 PM CDT documented in this encounter Plan of Treatment Not on file documented as of this encounter Visit Diagnoses Not on filedocumented in this encounter Care Teams Tobacco Grader Relationship Specialty Start Date End Date Reji Castro MD [address] [place] [id number] PCP - General Adolescent Medicine 10/02/22 documented as of this encounter
--- OUTSIDE RECORDS SUMMARY | 2025-05-24 09:13 | XMS_ITS | Encounter Summary ---
Author Organization [employer] ([place], [place], [place], [place]) Address [address] [place] [address] Care Team Providers Care Tanning Wheel Operator Name Role Phone Reji Castro MD Primary Care Provider + [phone] Encounter Details Date Type Department Care Team (Late st Contact Info) Description 08/11/2021 Transcribed Document [facility] [facility] [place] [address] ProviderDelvin MD [address] [place] [phone] Social History Tobacco Use Types Packs/Day Years Used Date Smoking Tobacco: Never Assessed Comments Unknown Sex and Gender Information Value Date Recorded Sex Assigned at Not on file Legal Sex Female 4:32 PM CDT Gender Identity Not on file Sexual Orientation Not on file documented as of this encounter Miscellaneous Notes * Cerner Conversion Note - Delvin ProviderMD - 08/11/2021 7:42 PM CDT Patient: IRINA [...] Mon HR 72 (AUG 11 18:55) 72 (JUL 20 18:55) 72 (AUG 11 18:55) Periph HR 76 (AUG 11 16:19) 76 (JUL 20 16:19) 76 (AUG 11 16:19) Resp Rate [...] you, Noy Garrett, PharmD PGY-1 Resident Pager #[phone] documented in this encounter Plan of Treatment Not on file documented as of this encounter Visit Diagnoses Not on filedocumented in this encounter Care Teams Tanning Wheel Operator Relationship Specialty Start Date End Date Reji Castro MD [address] [place] [address] PCP - General Adolescent Medicine 10/02/22 documented as of this encounter
--- OUTSIDE RECORDS SUMMARY | 2025-05-24 09:13 | XMS_ITS | Encounter Summary ---
Author Organization [employer] ([place], [place], [place], [place]) Address [address] [place] [address] Care Team Providers Care Meat Packager Name Role Phone Reji Castro MD Primary Care Provider [phone] Encounter Details Date Type Department Care Team (Late st Contact Info) Description 08/21/2021 Transcribed Document [facility] Radiology 1 [place] [address] Loren Solorzano MD [address] [place] [address] [place] [address] Social History Tobacco Use Types Packs/Day Years [...] cefTRIAXone: 2 Gram, 100 mL/Hr, IV Piggyback, [id number] diphenhydrAMINE: 25 mg, Oral, Q6H, PRN: Itching [...] Oral, BID cefTRIAXone 2 Gram, IV Piggyback, [id number] citalopram 20 mg tab 40 mg 2 [...] Bioprosthetic mitral valve replacement / SNOMED CT 181171741 / Confirmed Chronic kidney disease / SNOMED CT 2868902030 / Confirmed COPD - Chronic obstructive pulmonary disease / SNOMED CT 139556455 / Confirmed History of obstructive sleep apnea / IMO 25538580 / Confirmed HLD - Hyperlipidemia / SNOMED CT 545831408 / Confirmed HTN - Hypertension / SNOMED CT 7283948215 / Confirmed Canceled: Atrial fibrillation / SNOMED CT 31124019, Active Problems (25) AIHA (autoimmune hemolytic anemia) [...] 21 06:00) 97.6 (AUG 21 06:00) 98 [place] [place] Apical HR 70 (AUG 20 20:27) 70 (AUG 20 20:27) 70 ([facility] [place] 20:27) Mon HR 61 (AUG 21 06:00) 61 (AUG 21 06:00) 89 ([facility] [place] Resp Rate 15 (AUG 21 06:00) 15 (AUG 21 06:00) 18 (AUG 20 11:00) SBP 101 (AUG 21 06:00) 95 (AUG 20 23:30) 127 ([facility] [place] DBP 68 (AUG 21 06:00) L 50 (AUG 20 15:00) 80 ([facility] [place] MAP 78 (AUG [...] (AUG 18) CO2 31 (AUG 21) 29 (SEP ) 28 (AUG 19) 28 (AUG 18) BUN [...] Hold home meds SSI #Depression Celexa #Pain [place] 10 mg every 6 hours as needed Dispo: Given patient with history of multiple transfusion we will keep patient in the hospital on heparin drip and Coumadin till INR therapeutic need IV abx, at least until 09/08. Discussed with pillowcase maker. and pharmcy Time spent 25 minutes documented in this encounter Plan of Treatment Not on file documented as of this encounter Visit Diagnoses Not on filedocumented in this encounter Care Teams Meat Packager Relationship Specialty Start Date End Date Reji Castro MD [address] [place] [phone] PCP - General Adolescent Medicine 10/02/22 documented as of this encounter
--- OUTSIDE RECORDS SUMMARY | 2025-05-24 09:13 | XMS_ITS | Encounter Summary ---
Author Organization [employer] ([place], [place], [place], [place]) Address [address] [place] [address] Care Team Providers Care Registered Mail Clerk Name Role Phone Reji Castro MD Primary Care Provider + [phone] Encounter Details Date Type Department Care Team (Late st Contact Info) Description 08/19/2021 Transcribed Document [facility] [place] Medicine [facility] [place] [address] ProviderDelvin MD [address] [place] [phone] Social History Tobacco Use Types Packs/Day Years Used Date Smoking Tobacco: Never Assessed Comments Unknown Sex and Gender Information Value Date Recorded Sex Assigned at Not on file Legal Sex Female 4:32 PM CDT Gender Identity Not on file Sexual Orientation Not on file documented as of this encounter Miscellaneous Notes * [employer]ner Conversion Note - Historical ProviderMD - 08/19/2021 11:39 AM CDT RX [...] Drug Order, Time : 10 Minute(s) Andrea Moraes, Resident Pharmacist - 08/19/2021 11:39 EDT documented in this encounter Plan of Treatment Not on file documented as of this encounter Visit Diagnoses Not on filedocumented in this encounter Care Teams Registered Mail Clerk Relationship Specialty Start Date End Date Reji Castro MD [address] [place] [id number] PCP - General Adolescent Medicine 10/02/22 documented as of this encounter
--- OUTSIDE RECORDS SUMMARY | 2025-05-24 09:13 | XMS_ITS | Encounter Summary ---
Author Organization [employer] ([place], [place], [place], [place]) Address [address] [place] [address] Care Team Providers Care Director Speech Name Role Phone Reji Castro MD Primary Care Provider + [phone] Encounter Details Date Type Department Care Team (Late st Contact Info) Description 08/12/2021 Transcribed Document [facility] [place] Family [facility] [place] [address] ProviderDelvin MD [address] [place] [phone] Social History Tobacco Use Types Packs/Day Years Used Date Smoking Tobacco: Never Assessed Comments Unknown Sex and Gender Information Value Date Recorded Sex Assigned at Not on file Legal Sex Female 4:32 PM CDT Gender Identity Not on file Sexual Orientation Not on file documented as of this encounter Miscellaneous Notes * [employer]ner Conversion Note - Delvin ProviderMD - 08/12/2021 2:07 PM CDT [facility] Authorization Entered On: 08/12/2021 14:07 EDT Performed On: 08/12/2021 14:07 EDT by JORGE VALLES RN Primary Insurance Authorization Authorization and Policy Numbers : Insurance 1 Health Plan: [employer] Policy Number: [id number] Authorization Number: Insurance 2 Health Plan: [place] Policy Number: [id number] Authorization Number: Insurance Primary Name : [employer] Policy Number: [id number] Authorization Status-Primary : Awaiting callback Reference Number-Primary : Pend ref #[id number] Authorized Service Begin Date-Primary : 08/11/2021 EDT Authorization Comments-Primary : Pend ref no per Availity, reviewer has access to Marisa Historical Authorization Comments-Primary : No Authorization Comments Found JORGE VALLES, RN - 08/12/2021 14:07 EDT documented in this encounter Plan of Treatment Not on file documented as of this encounter Visit Diagnoses Not on filedocumented in this encounter Care Teams Director Speech Relationship Specialty Start Date End Date Reji Castro MD [address] [place] [id number] PCP - General Adolescent Medicine 10/02/22 documented as of this encounter
--- OUTSIDE RECORDS SUMMARY | 2025-05-24 09:13 | XMS_ITS | Encounter Summary ---
Author Organization [employer] ([place], [place], [place], [place]) Address [address] [place] [address] Care Team Providers Care Estimator Printing Name Role Phone Reji Castro MD Primary Care Provider + [phone] Encounter Details Date Type Department Care Team (Late st Contact Info) Description 08/12/2021 Transcribed Document [facility] [place] Family [place] [facility] [place] [address] ProviderDelvin MD [address] [place] [address] [phone] Social History Tobacco Use Types Packs/Day Years [...] her port could not be accessed. Her housekeeping aide aspirated fluid from the port that was evidently purulent. I have not yet been able to track down that culture. After the aspiration she developed fever to 103, severe CHEUNG, myalgias and arthralgias. She was admitted to [facility]. She was in the hospital for [...] On 08/08 she presented to a [facility] after she developed severe CHEUNG and myalgias w/o prominent fever. She was subsequently contacted and told to report to [facility] because she had + blood cutures concerning for an infected portacath +/- PVE. 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 [...] mg, 14 mL, 128 mL/Hr, IV Piggyback, [id number] DAPTOmycin + Sodium Chloride 0.9% intravenous solution 50 mL: 700 mg, 14 mL, 128 mL/Hr, IV Piggyback, [id number] Dextrose 50% injection: 12.5 Gram, IV Push, [...] Last Charted Minimum Maximum Temp 97.5 (AUG 12:) 97.5 (AUG 12:) 98 (AUG 12 05:49) Mon HR 50 (AUG 12:) 50 (AUG 12:00) 82 (AUG 11 21:28) Resp Rate 20 (AUG 12:00) 16 (AUG 11:30) 20 (AUG 12:) SBP L 86 (AUG 12:00) L 86 (AUG 11:30) 103 (AUG 12:00) DBP L 47 (AUG 12:) L 46 (AUG 12 05:49) 70 (AUG 12:00) MAP 55 (AUG 12:) 55 (AUG 12:00) 80 (AUG 12:00) SpO2 94 (AUG 12:00) 94 (AUG 11 19:30) 98 (AUG 12 05:49) General: Alert and [...] tenderness, No swelling, No deformity. Integumentary: Warm, Campus. Neurologic: Alert, Oriented, No focal deficits. Psychiatric: [...] 12) L .73 (AUG 11) PT H 17.5 (AUG 12) H 17.1 (AUG 12) H 18.9 (AUG 11) INR H 1.7 (AUG 12) H 1.6 (AUG 12) H 1.8 (JUL 20) PTT H 39.6 (JUL 20) AST 16 (AUG 12) 18 (JUL 20) ALT 23 (AUG 12) 25 (JUL 20) ALK P 110 (AUG 12) 128 (AUG 11) T Bili 0.6 (AUG 12) 0.7 (JUL 20) PTN 7.6 (AUG 12) H 8.7 (JUL 20) ALB 3.9 (AUG 12) 4.4 (JUL 20) Troponin <0.015 (AUG 12) <0.015 (AUG 11) <0.015 (SEP 20) . Impression and Plan IMPRESSION -- CN [...] -- Await CHUCHO Electronically signed by Lanny [facility] Conversion Rougher Merchant Mill Cerner at 03/09/2023 9:02 PM CDT documented in this encounter Plan of Treatment Not on file documented as of this encounter Visit Diagnoses Not on filedocumented in this encounter Care Teams Estimator Printing Relationship Specialty Start Date End Date Reji Castro MD [address] [place] [id number] PCP - General Adolescent Medicine 10/02/22 documented as of this encounter
--- OUTSIDE RECORDS SUMMARY | 2025-05-24 09:13 | XMS_ITS | Encounter Summary ---
Author Organization [employer] ([place], [place], [place], [place]) Address [address] [place] [address] Care Team Providers Care Noc Technician Name Role Phone Reji Castro MD Primary Care Provider + [phone] Encounter Details Date Type Department Care Team (Late st Contact Info) Description 08/25/[address] [facility] [place] [facility] [place] [address] ProviderDelvin MD [address] [place], [place] [phone] Social History Tobacco Use Types Packs/Day Years Used Date Smoking Tobacco: Never Assessed Comments Unknown Sex and Gender Information Value Date Recorded Sex Assigned at Not on file Legal Sex Female 4:32 PM CDT Gender Identity Not on file Sexual Orientation Not on file documented as of this encounter Miscellaneous Notes * Cerner Conversion Note - Historical ProviderMD - 08/25/2021 9:20 AM CDT Spiritual Care Assessment Entered On: 08/25/2021 10:19 EDT Performed On: 08/25/2021 9:20 EDT by Rome Burgos Chaplain-Non Cert General Information Initial Visit : No Follow-up Visit Number, Spiritual : 2 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 Ministry Provided to : Patient Spiritual/Emotional Acuity : Medium Spiritual Framework : Integrated, provides strength/resource Active in a [employer] Group : Yes Active in a [employer] Group Comment : [facility] [place]. 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 PT is experiencing significant chest pain. She was desirous of prayer, explaining her involvement with her Anglican scientologist as well. One of her daugthers is a Orthopedic Surgery Nurse here at [facility]. She reported she is living in a rented house in [place] as her home in [place] has [facility]. Warp Tier provided pastoral presence, support, and prayer. Family; two daughters, two sisters, one brother, and their families. Spirital Assessment Comment/Summary Report : SPIRITUAL ASSESSMENT COMMENT/SUMMARY No qualifying data available. Rome Burgos Chaplain-Non Cert - 08/25/2021 10:13 EDT Interventions Advance Directive Information Provided : No Emotional Support : Empathic/Engaged listening, Established trust, Feelings expressed, Hope strengths identified, Meaning strengths identified, Relationship strengths identified Spiritual and Yarsanism : Prayer shared Rome Burgos Chaplain-Non Cert - 08/25/2021 10:13 EDT Electronically signed by [facility] Conversion Medical Service Representative Cerner at 03/09/2023 8:33 PM CDT documented in this encounter Plan of Treatment Not on file documented as of this encounter Visit Diagnoses Not on filedocumented in this encounter Care Teams Noc Technician Relationship Specialty Start Date End Date Reji Castro MD [address] [place] [address] PCP - General Adolescent Medicine 10/02/22 documented as of this encounter
--- OUTSIDE RECORDS SUMMARY | 2025-05-24 09:13 | XMS_ITS | Encounter Summary ---
Author Organization [employer] ([place], [place], [place], [place]) Address [address] [place] [address] Care Team Providers Care Person Investigator Name Role Phone Reji Castro MD Primary Care Provider + [phone] Encounter Details Date Type Department Care Team (Late st Contact Info) Description 08/21/2021 Transcribed Document [facility] [place] [facility] [place] [address] ProviderDelvin MD [address] [place] [address] [phone] Social History Tobacco Use Types Packs/Day Years Used Date Smoking Tobacco: Never Assessed Comments Unknown Sex and Gender Information Value Date Recorded Sex Assigned at Not on file Legal Sex Female 4:32 PM CDT Gender Identity Not on file Sexual Orientation Not on file documented as of this encounter Miscellaneous Notes * Cerner Conversion Note - Historical ProviderMD - 08/21/2021 2:00 AM CDT Flush Tester Details Entered On: 08/21/2021 6:32 EDT Performed [...] on filedocumented in this encounter Care Teams Person Investigator Relationship Specialty Start Date End Date Reji Castro MD [address] [place] [id number] PCP - General Adolescent Medicine 10/02/22 documented as of this encounter
--- OUTSIDE RECORDS SUMMARY | 2025-05-24 09:13 | XMS_ITS | Encounter Summary ---
Author Organization [employer] ([place], [place], [place], [place]) Address [address] [place] [address] Care Team Providers Care Field Sampling Technician Name Role Phone Reji Castro MD Primary Care Provider + [phone] Encounter Details Date Type Department Care Team (Late st Contact Info) Description 08/16/2021 Transcribed Document [facility] [place] Family Medicine [address] [place] [address] ProviderDelvin MD [address] [place] [address]231 Social History Tobacco Use Types Packs/Day Years Used Date Smoking Tobacco: Never Assessed Comments Unknown Sex and Gender Information Value Date Recorded Sex Assigned at Not on file Legal Sex Female 4:32 PM CDT Gender Identity Not on file Sexual Orientation Not on file documented as of this encounter Miscellaneous Notes * Cerner Conversion Note - Delvin ProviderMD - 08/16/2021 5:00 PM CDT Chart Check - Review Order Profile Entered On: 08/16/2021 17:03 EDT Performed On: 08/16/2021 17:00 EDT by JULIO LUND RN-PATIENT CARE BEDSIDE NON-EXEMPT Chart Check Powerplans Initiated/Discontinued as Appropriate : Yes JULIO LUND RN-PATIENT CARE BEDSIDE NON-EXEMPT - 08/16/2021 17:03 EDT Electronically signed by Lanny [facility] Conversion Micromatic Hone Operator Cerner at 03/09/2023 8:45 PM CDT documented in this encounter Plan of Treatment Not on file documented as of this encounter Visit Diagnoses Not on filedocumented in this encounter Care Teams Field Sampling Technician Relationship Specialty Start Date End Date Reji Castro MD [address] [place] [address] PCP - General Adolescent Medicine 10/02/22 documented as of this encounter
--- OUTSIDE RECORDS SUMMARY | 2025-05-24 09:13 | XMS_ITS | Encounter Summary ---
Author Organization [employer] ([place], [place], [place], [place]) Address [address] [place] [address] Care Team Providers Care Hosted Services Analyst Name Role Phone Reji Castro MD Primary Care Provider + [phone] Encounter Details Date Type Department Care Team (Late st Contact Info) Description 08/12/[address] [facility] [place] [address] ProviderDelvin MD [address] [place] [address] [phone] Social History Tobacco Use Types Packs/Day Years [...] On: 08/12/2021 8:46 EDT by TAWNYA AVILES, LITIGATION ASSISTANT Bronchodilator Assessment Score, RT Pulmonary History, Bronchodilator [...] Bronchodilator Assessment Score : 3 TAWNYA AVILES LITIGATION ASSISTANT - 08/12/2021 8:46 EDT Electronically signed by Lanny, [facility] Conversion Irrigation Service Technician Cerner at 03/09/2023 8:59 PM CDT documented in this encounter Plan of Treatment Not on file documented as of this encounter Visit Diagnoses Not on filedocumented in this encounter Care Teams Hosted Services Analyst Relationship Specialty Start Date End Date Reji Castro MD [address] [place] [address] PCP - General Adolescent Medicine 10/02/22 documented as of this encounter
--- OUTSIDE RECORDS SUMMARY | 2025-05-24 09:13 | XMS_ITS | Encounter Summary ---
Author Organization [employer] ([place], [place], [place], [place]) Address [address] [place] [address] Care Team Providers Care Block Hand Name Role Phone Reji Castro MD Primary Care Provider + [phone] Encounter Details Date Type Department Care Team (Late st Contact Info) Description 08/16/2021 Transcribed Document [facility] [place] [address] ProviderDelvin MD [address] [place] [phone] Social History Tobacco Use Types Packs/Day Years Used Date Smoking Tobacco: Never Assessed Comments Unknown Sex and Gender Information Value Date Recorded Sex Assigned at Not on file Legal Sex Female 4:32 PM CDT Gender Identity Not on file Sexual Orientation Not on file documented as of this encounter Miscellaneous Notes * Cerner Conversion Note - Delvin ProviderMD - 08/16/2021 1:27 PM CDT Patient: IRINA [...] mg, 14 mL, 128 mL/Hr, IV Piggyback, [id number]. diphenhydrAMINE: 25 mg, Oral, Q6H, PRN: Itching. [...] (SEP 22) 4.5 (SEP ) Cl 106 (AUG 16) 104 (SEP 24) 102 (SEP 22) 103 (SEP ) CO2 25 (AUG 16) 27 (SEP 24) 29 (AUG 13) 30 (AUG 13) BUN H 23 (AUG 16) H 28 (SEP 24) H 35 (JUL 22) H 50 (SEP ) Cr H 1.40 (AUG 16) H 1.80 (SEP 24) H 1.80 (SEP ) H 1.60 (SEP ) Glu R H 112 (AUG 16) H 139 (JUL 24) H 114 (AUG 13) 102 (AUG 13) Ca 9.5 (AUG 16) 9.4 (JUL 24) 9.1 (AUG 13) 9.1 (AUG 13) Lactic .93 (AUG 12) L .73 (AUG 11) PT H 17.2 (AUG 16) H 18.2 (SEP 24) H 17.2 (SEP 23) H 17.0 (SEP ) INR H 1.7 (AUG 16) H 1.8 (JUL 24) H 1.7 (AUG 14) H 1.6 (AUG 14) PTT H 39.6 (AUG 11) AST 19 (SEP 24) 18 (SEP 22) 17 (SEP 22) 16 (SEP ) ALT 17 (SEP 24) 17 (SEP 22) 19 (SEP ) 23 (SEP ) ALK P 101 (AUG 15) 102 (SEP 22) 102 (SEP 22) 110 (SEP ) T Bili 0.4 (SEP [...] questions. Thank you, Andrea Moraes, PharmD PGY1 Shuttle Preparation Supervisor Pager: [phone], Ext. [phone] documented in this encounter Plan of Treatment Not on file documented as of this encounter Visit Diagnoses Not on filedocumented in this encounter Care Teams Block Hand Relationship Specialty Start Date End Date Reji Castro MD [address] [place] [id number] PCP - General Adolescent Medicine 10/02/22 documented as of this encounter
--- OUTSIDE RECORDS SUMMARY | 2025-05-24 09:13 | XMS_ITS | Encounter Summary ---
Author Organization [employer] ([place], [place], [place], [place]) Address [address] [place] [address] Care Team Providers Care Film Sound Engineer Name Role Phone Reji Castro MD Primary Care Provider + [phone] Encounter Details Date Type Department Care Team (Late st Contact Info) Description 08/19/2021 Transcribed Document [facility] [place] Family Medicine [facility] [place] [address] ProviderDelvin MD [address] [place] [phone] Social History Tobacco Use Types Packs/Day Years Used Date Smoking Tobacco: Never Assessed Comments Unknown Sex and Gender Information Value Date Recorded Sex Assigned at Not on file Legal Sex Female 4:32 PM CDT Gender Identity Not on file Sexual Orientation Not on file documented as of this encounter Miscellaneous Notes * Cerner Conversion Note - Delvin ProviderMD - 08/19/2021 7:30 AM CDT [facility] Main OR Preop Summary Primary Physician: NENA PEARSON MD-[facility] Finalized Date/Time: 08/19/21 07:37:55 Pt. Name: IRINA TAMAYO D.O.B./Sex: 1965 Female Med Rec #: [id number] Physician: VINCE BELLO MD Financial #: [id number] Pt. Type: I Room/Bed: [facility]/1 Admit/Disch: 08/11/21 21:21:00 - Institution: [facility] PreOp Case Times Entry 1 In Preop 08/19/21 05:49:00 Ready for Holding n/a Room Patient Ready for 08/19/21 06:35:00 Surgery Patient Out of Preop 08/19/21 07:33:00 Patient Out of n/a Holding Room Last Modified By: Merle Hicks Rn 08/19/21 07:37:50 [facility] PreOp Case Times Audit 08/19/21 07:37:50 Pool Player: MARITO Modifier: MFWARD <+> 1 Patient Out of Preop Finalized By: Merle Hicks Rn Document Signatures Signed By: Merle Hicks Rn 08/19/21 07:37 Electronically signed by Lanny [facility] Conversion Manager Community Cerner at 03/09/2023 8:32 PM CDT documented in this encounter Plan of Treatment Not on file documented as of this encounter Visit Diagnoses Not on filedocumented in this encounter Care Teams Film Sound Engineer Relationship Specialty Start Date End Date Reji Castro MD [address] [place] [id number] PCP - General Adolescent Medicine 10/02/22 documented as of this encounter
--- OUTSIDE RECORDS SUMMARY | 2025-05-24 09:13 | XMS_ITS | Encounter Summary ---
Author Organization [employer] ([place], [place], [place], [place]) Address [address] [place] [address] Care Team Providers Care Inclinometer Tester Name Role Phone Reji Castro MD Primary Care Provider + [phone] Encounter Details Date Type Department Care Team (Late st Contact Info) Description 08/16/2021 Transcribed Document [facility] [place] [facility] [place] [address] ProviderDelvin MD [address] [place] [address] [phone] Social History Tobacco Use Types Packs/Day Years Used Date Smoking Tobacco: Never Assessed Comments Unknown Sex and Gender Information Value Date Recorded Sex Assigned at Not on file Legal Sex Female 4:32 PM CDT Gender Identity Not on file Sexual Orientation Not on file documented as of this encounter Miscellaneous Notes * Cerner Conversion Note - Delvin ProviderMD - 08/16/2021 10:47 AM CDT Patient: IRINA [...] 5. 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 At risk for central venous catheter associated infection Z91.89 Chronic kidney disease N18.9 Medical screening exam [id number] Medications Inpatient acetaminophen, 650 mg= 2 Tab, [...] failure) penicillins propafenone theophylline Electronically signed by Lanny, [facility] Conversion Segmental Wall Installer Cerner at 03/09/2023 8:52 PM CDT documented in this encounter Plan of Treatment Not on file documented as of this encounter Visit Diagnoses Not on filedocumented in this encounter Care Teams Inclinometer Tester Relationship Specialty Start Date End Date Reji Castro MD [address] [place] [id number] PCP - General Adolescent Medicine 10/02/22 documented as of this encounter
--- OUTSIDE RECORDS SUMMARY | 2025-05-24 09:13 | XMS_ITS | Encounter Summary ---
Author Organization [employer] ([place], [place], [place], [place]) Address [address] [place] [address] Care Team Providers Care Breaker Up Machine Operator Name Role Phone Reji Castro MD Primary Care Provider + [phone] Encounter Details Date Type Department Care Team (Late st Contact Info) Description 08/19/2021 Transcribed Document [facility] [place] [facility] [place] [address] ProviderDelvin MD [address] [place] [phone] Social History Tobacco Use Types Packs/Day Years Used Date Smoking Tobacco: Never Assessed Comments Unknown Sex and Gender Information Value Date Recorded Sex Assigned at Not on file Legal Sex Female 4:32 PM CDT Gender Identity Not on file Sexual Orientation Not on file documented as of this encounter Miscellaneous Notes * Cerner Conversion Note - Historical ProviderMD - 08/19/2021 2:00 AM CDT Corporate Risk Analyst Details Entered On: 08/19/2021 3:57 EDT [...] filedocumented in this encounter Care Teams Breaker Up Machine Operator Relationship Specialty Start Date End Date Reji Castro MD [address] [place] [address] PCP - General Adolescent Medicine 10/02/22 documented as of this encounter
--- OUTSIDE RECORDS SUMMARY | 2025-05-24 09:13 | XMS_ITS | Encounter Summary ---
Author Organization [employer] ([place], [place], [place], [place]) Address [address] [place] [address] Care Team Providers Care Non Garment Sewing Machine Operator Name Role Phone Reji Castro MD Primary Care Provider + [phone] Encounter Details Date Type Department Care Team (Late st Contact Info) Description 08/12/2021 Transcribed Document [facility] [place] [address] [place] [address] ProviderDelvin MD [address] [place] [address] [phone] Social History Tobacco Use Types Packs/Day Years Used Date Smoking Tobacco: Never Assessed Comments Unknown Sex and Gender Information Value Date Recorded Sex Assigned at Not on file Legal Sex Female 4:32 PM CDT Gender Identity Not on file Sexual Orientation Not on file documented as of this encounter Miscellaneous Notes * Cerner Conversion Note - Historical ProviderMD - 08/12/2021 4:00 PM CDT Patient: [...] on filedocumented in this encounter Care Teams Non Garment Sewing Machine Operator Relationship Specialty Start Date End Date Reji Castro MD [address] [place] [address] PCP - General Adolescent Medicine 10/02/22 documented as of this encounter
--- OUTSIDE RECORDS SUMMARY | 2025-05-24 09:13 | XMS_ITS | Encounter Summary ---
Author Organization [employer] ([place], [place], [place], [place]) Address [address] [place] [address] Care Team Providers Care Paper Tube Machine Operator Name Role Phone Reji Castro MD Primary Care Provider + [phone] Encounter Details Date Type Department Care Team (Late st Contact Info) Description 08/12/2021 Transcribed Document [facility] [place] Family [place] [address] [place] [address] ProviderDelvin MD [address] [place] [address] 239351 Social History Tobacco Use Types Packs/Day Years Used Date Smoking Tobacco: Never Assessed Comments Unknown Sex and Gender Information Value Date Recorded Sex Assigned at Not on file Legal Sex Female 4:32 PM CDT Gender Identity Not on file Sexual Orientation Not on file documented as of this encounter Miscellaneous Notes * Cerner Conversion Note - Delvin ProviderMD - 08/12/2021 1:29 PM CDT Patient: IRINA TAMAYO Age: 56 Years Sex: Female : 1965 Subjective Patient is a poor historian, she has difficulty recalling timeline of events. Discharged from [facility] approximately 3 weeks ago after being [...] mmol/L (Low) 08/11/2021 17:59 EDT Sodium Ur [place] 29 mMole/Liter 08/12/2021 03:40 EDT Troponin I [...] # 0.76 K/uL (Low) 08/11/2021 17:59 EDT [place] % 9.5 % 08/12/2021 00:22 EDT [place] % 8.9 % 08/11/2021 17:59 EDT [place] # 0.64 K/uL 08/12/2021 00:22 EDT [place] # 0.61 K/uL 08/11/2021 17:59 EDT Eos [...] Appearance CLEAR2 08/11/2021 17:59 EDT Urine Specific [place] 1.007 08/11/2021 17:59 EDT Urine pH Dipstick [...] Negative2 08/11/2021 19:38 EDT Electronically signed by Lanny [facility] Conversion Prize Fighter Cerner at 03/09/2023 9:01 PM CDT documented in this encounter Plan of Treatment Not on file documented as of this encounter Visit Diagnoses Not on filedocumented in this encounter Care Teams Paper Tube Machine Operator Relationship Specialty Start Date End Date Reji Castro MD [address] [place] [address] PCP - General Adolescent Medicine 10/02/22 documented as of this encounter
--- OUTSIDE RECORDS SUMMARY | 2025-05-24 09:13 | XMS_ITS | Encounter Summary ---
Author Organization [employer] ([place], [place], [place], [place]) Address [address] [place] [address] Care Team Providers Care Bore Mill Operator For Plastic Name Role Phone Reji Castro MD Primary Care Provider + [phone] Encounter Details Date Type Department Care Team (Late st Contact Info) Description 08/17/2021 Transcribed Document [facility] [place] [facility] [place] [address] ProviderDelvin MD [address] [place] [address] Social History Tobacco Use Types Packs/Day Years Used Date Smoking Tobacco: Never Assessed Comments Unknown Sex and Gender Information Value Date Recorded Sex Assigned at Not on file Legal Sex Female 4:32 PM CDT Gender Identity Not on file Sexual Orientation Not on file documented as of this encounter Miscellaneous Notes * Cerner Conversion Note - Historical ProviderMD - 08/17/2021 2:00 AM CDT Bottling Attendant Details Entered On: 08/17/2021 1:07 EDT Performed [...] on filedocumented in this encounter Care Teams Bore Mill Operator For Plastic Relationship Specialty Start Date End Date Reji Castro MD [address] [place] [id number] PCP - General Adolescent Medicine 10/02/22 documented as of this encounter
--- OUTSIDE RECORDS SUMMARY | 2025-05-24 09:13 | XMS_ITS | Encounter Summary ---
Author Organization [employer] ([place], [place], [place], [place]) Address [address] [place] [address] Care Team Providers Care Implementation Director Name Role Phone Reji Castro MD Primary Care Provider + [phone] Encounter Details Date Type Department Care Team (Late st Contact Info) Description 08/21/2021 Transcribed Document [facility] Family Medicine [facility] [place] [address] ProviderDelvin MD [address] [place] [phone] Social History Tobacco Use Types Packs/Day Years [...] Warfarin HPI: 56 y/o F presenting to [facility] with history of COPD, atrial fibrillation, [...] cefTRIAXone: 2 Gram, 100 mL/Hr, IV Piggyback, Y19ASdu. citalopram: 40 mg, Oral, Daily. diphenhydrAMINE: 50 [...] 06:00) 97.6 (AUG 21 06:00) 98 (AUG 20:) Apical HR 70 (AUG 20 20:27) 70 [...] H 1.3 (AUG 18) PTT H 39.6 (JUL 20) AST 17 [...] questions. Thank you, Andrea Moraes, PharmD PGY1 Design Technician Pager: [phone], Ext. [phone] documented in this encounter Plan of Treatment Not on file documented as of this encounter Visit Diagnoses Not on filedocumented in this encounter Care Teams Implementation Director Relationship Specialty Start Date End Date Reji Castro MD [address] [place] [address] PCP - General Adolescent Medicine 10/02/22 documented as of this encounter
--- OUTSIDE RECORDS SUMMARY | 2025-05-24 09:13 | XMS_ITS | Data Portability ---
Author Organization [place] - [place] & DAMIÁN Granados ADMIN Address [address] [place] [address] Care Team Providers Care Setup Technician Name Role Phone WESTON TOVAR Primary Care Provider [phone] NINOSKA MOSER Asbestos Removal Worker NAFISA LE Primary Care Provider Assessment Encounter [...] Plan - Oncologist got CT 10/27 at [place]. Will get records. - Schedule Pill Cam - Will refer to Dr. Lopez at [facility] for EGD and Colonoscopy d/t iron deficiency [...] - discussed PillCam findings with Jade Moser SENIOR WEB DESIGNER an updated her on Dr. Betancur's recommendation for PUSH procedure - reviewed findings with patient - EGD/colonoscopy scheduled with Dr. Lopez at [facility] as it is closer to her home [...] upper endoscopy procedure (EGD) (PROC) 2024 025 [facility] (Central Scheduling), [address] [place] [address] [place], [address], 5 11:06:05 colonoscop y procedure (PROC) 2024 [facility] [address] [place] [address] [place], [address], 08:49:52 Surgeries None recorded. Imaging None recorded. Medication Orders Miralax 17 gram/dose oral powder 2024 [email or web address] [facility], [address] [place], [address], 5 11:55:43 Dulcolax (bisacodyl ) 5 mg tablet,del ayed release 2024 [email or web address] [facility], [address] [place], [address], 11:55:43 Patient TargetsNo targets recorded. Patient Instructions Encounter Date Encounter Id Patient Instructions Last Modified By Organization Details Last Modified Time 10/11/2024 [id number] Patient benefits from CPAP with resolution of fatigue, witnessed apneas and snores. She is compliant with CPAP. She is on auto CPAP in a range of 4-20 cm. Continue CPAP each and every night full sleep cycle. Weight loss. Patient is compliant with CPAP with an apnea plus hypopnea index of 0.7. RTC in one year. [email or web address] Not available 10/11/2024 10:48:47 Reason for Referral None Reported. Results Created Date Observation Date Name Description Value Unit Range Abnormal Flag Note LastModifiedBy Organization Detail LastModifiedTime 01/25/2001/24/2025 HEMAT OCRIT + HEMOG LOBIN HGB 7.2 g/dL 12.0-1 5.7 critical low Not Available [facility] (Lab Registration) [address] [place], [address], 01/24/2025 14:45:05 01/25/20 25 01/24/2025 HEMAT OCRIT + HEMOG LOBIN HCT 25.5 % 36.0-4 7.0 low Not Available [facility] (Lab Registration) [address] [place], [address], 01/24/2025 14:45:05 01/25/20 25 01/24/2025 HEMAT OCRIT + HEMOG LOBIN note Unles s other chen noted testi ng perfo rmed at: [facility] [address] [place] [address] [phone] Bo cisneros MD CLIA: [id number] Not Available [facility] (Lab Registration) [address] [place] , [place], [address], 01/24/2025 14:45:05 10/05/20 24 08/23/2024 bariu dao hollisall ow study No observ ation record ed. [email or web address] [facility] [address], [place], [place], [address], 11/17/2024 10:19:10 11/17/20 24 11/17/2024 RF, small bowel follo w-thr ough study No observ ation record ed. [facility] [address], [place], [address], 12/06/2024 11:06:36 01/08/20 25 capsu le endos copy (PROC ) No observ ation record ed. [email or web address] Not Available 2024 09:08:22 Result Notes None recorded. Problems Name Problem SNOMED Code Status Onset Date Resolution Date Notes Provider Name and Address Organization Details Recorded Time Iron deficiency anemia 98685714 Active 2024 Ninoska Moser NP [address], [address], [place], [address], [place] - [place] - [place] & [place] 5 10:47:25 Chronic idiopathic constipation 57895986 Active 2024 Ninoska Moser NP [address], [address], [place], [address], [place] [facility] & [place] 5 10:54:45 Gastro-esophag eal reflux disease with esophagitis 638199531 Active 2024 Ninoska Moser NP [address], [address], [place], [address], [place] [facility] & [place] 5 10:54:45 Obstructive sleep apnea syndrome 62531968 Active 2022 Farhan Bae MD [address] [place] [address],[address], [address], [place] - [facility] & [place] 3 10:26:00 Problem Notes None recorded. Procedures Surgical History Date Name Laterality Status Provider Name and Address Organization Details Recorded Time 01/25 esophagogastroduodenoscopy completed Maye Card [place] & [place] 5 17:05:17 01/25 Colonoscopy completed Maye Card [place] & [place] 5 17:05:26 01/31 completed Shanice Dailey [place] & [place] 5 09:52:06 07/31 Date of Last Colonoscopy completed Kimberl y Dailey [place] & [place] 5 09:52:06 ligation of fallopian tube completed Crystal Earlywine [place] & [place] 3 10:12:53 Imaging Results None recorded. Procedure Notes None recorded. Medical Equipment None Reported. Allergies Allergen ID Allergen Name Allergen Category Reaction Reaction Severity Criticality Documentation Date Start Date Code Code System Note Provider Name and Address Organization Details Recorded Time 33595 Buprenex medicatio n Not available Not available Not available 12/18/2022 39026 0 RxNorm Crystal [place] null, [place] - [place] - [place] & [place] 3 10:08:00 42304 codeine medicatio n Not available Not available Not available 12/18/2022 2670 RxNorm Crystal [place] null, [place] & [place] 3 10:08:06 79210 Levaquin medicatio n Not available Not available Not available 12/18/2022 44946 2 RxNorm Crystal Earlywine null, [place] - [facility] [place] & [place] 3 10:08:13 31408 Rocephin medicatio n Not available Not available Not available 12/18/2022 9449 RxNorm [place] [facility] & [place] 3 10:08:19 08867 Iodinated contrast media (substanc e) medicatio n Not available Not available Not available 12/18/2022 41239 2004 SNOMED [place] [facility] & [place] 3 10:08:26 Medications Name Sig Start Date [...] Not Available Not Available No t Available Amnada SoloStar U-300 Insulin 300 unit/mL (1.5 mL) [...] Available Not Available No t Available FreeStyle Gesron 14 Day Noble USE DIRECTED active Not Available Not Available [...] Pulse oximetry Heart rate Heart rate Systolic And Diastolic Provider Name and Address Organization Details Last Updated DateTime 5 162.56 cm 32.5 kg/m2 68548.3 9 g 97.9 [degF] 90 % 90 % 80 /min 77 /min 100/69 mm[Hg] Hannah COBB - [facility] & [place] 5 13:04:38 Date Recorded Body height Body mass index (BMI) Body weight Body temperature Oxygen saturation Oxygen saturation in Arterial blood by Pulse oximetry Heart rate Provider Name and Address Organization Details Last Updated DateTime 5 162.56 cm 32.2 kg/m2 41516.2 1 g 97.8 [degF] 90 % 90 % 85 /min Shanice Daileypaddy COBB - [facility] & [place] 5 09:51:59 Date Recorded Body height Provider Name an d Address Organization Details Last Updated DateTime 01/23/2025 162.56 cm NAFISA LE NP [address] [facility], [place], [address], [place] [facility] & [place] 01/23/2025 15:38:59 Date Recorded Heart rate Provider Name an d Address Organization Details Last Updated DateTime 10/11/2024 71 /min Farhan gao MD [address] [facility],[address], [place], [address], [place] [facility] & [place] 10/11/2024 10:47:19 Date Recorded Body height Body mass index (BMI) Body weight Oxygen saturation Oxygen saturation in Arterial blood by Pulse oximetry Respiratory rate Systolic And Diastolic Provider Name and Address Organization Details Last Updated DateTime 4 162.56 cm 32.8 kg/m2 61749.4 2 g 97 % 97 % 12 /min 118/78 mm[Hg] Malini COBB - [facility] & [place] 4 10:42:15 Social History Question Answer Notes LastModified by Organizat ion Details LastModified Time Tobacco Smoking Status Former Smoker 1/2 PPD 30 years Malini gonzalez, [place] - [facility] & [place] 12/18/2022 10:12:37 Do You Have An Advance Directive? No Information not available 01/03/2025 Are You Blind Or Do You Have Difficulty Seeing? No Information not available 01/03/2025 When Did You Quit Smoking? 16+yearssin linda mancini QUIT 01/10/2006 [email or web address] Information not available 10/11/2024 [...] History Condition Response Coronary Artery Disease N Gout Y None N Colon Cancer N Kidney Stones N Hyperthyroidism N Hypothyroidism Y Lung Disease Y COPD Y Depression Y Clotting Disorder Y Diverticulitis/Diverticulosis Y Anxiety Disorder Y Autoimmune disease Y Obesity Y Vision or Eye Problems Y Arthritis N Cancer N Stroke N High Cholesterol Y Liver Disease N Headaches Y Kidney Disease Y Thyroid Problems Y Kidney or Bladder Problems Y GI Problems Y Osteoporosis/Osteopenia Y Anemia Y Colon Polyps Y Neurological Problems Y Diabetes Y Bleeding Disorder Y Seizures/Epilepsy N Tuberculosis N Hyperlipidemia Y Back Problems Y Asthma Y Reflux/GERD Y Sleep Apnea Y GERD/Reflux Y Hepatitis N Cirrhosis N Heart Disease Y Hypertension Y Gynecological History Statement/Question Response Abnormal Pap N Date of Last Colonoscopy 07/31/2017 01/31/2021 Sexually Active? N Menses Monthly N Current Control Method None Obstetrics History GPAL:G 0 P 0 0 0 0 Immunizations Vaccine Type Date Status Note Provider Nam e and Address Organization Details Recorded Time meningococcal B, OMV 9 completed Crystal Earlywine null, [place] 10/11/2024 10:42:50 meningococcal B, OMV 9 completed Crystal Earlywine null, [place] 10/11/2024 10:42:50 Influenza, recombinant, quadrivalent, PF 1 completed Crystal Earlywine null, [place] 10/11/2024 10:42:50 COVID-19, mRNA, LNP-S, PF, 100 mcg/0.5mL dose or 50 mcg/0.25mL dose 1 completed Crystal Earlywine null, [place] 10/11/2024 10:42:50 COVID-19, mRNA, LNP-S, PF, 100 mcg/0.5mL dose or 50 mcg/0.25mL dose 1 completed Crystal Earlywine null, [place] 10/11/2024 10:42:50 pneumococcal polysaccharide PPV23 9 completed Crystal [place]wine null, [place] 10/11/2024 10:42:50 Tdap 3 completed Crystal Earlywine null, [place] 10/11/2024 10:42:50 Pneumococcal conjugate PCV 13 9 completed Crystal Earlywine null, [place] 10/11/2024 10:42:50 Hib (PRP-T) 9 completed Crystal Earlywine null, [place] 10/11/2024 10:42:50 Meningococcal MCV4O 9 completed Crystal Earlywine null, [place] 10/11/2024 10:42:50 Meningococcal MCV4O 9 completed Crystal Earlywine null, [place] 10/11/2024 10:42:50 Influenza, split virus, quadrivalent, PF 0 completed Crystal Earlywine null, [place] 10/11/2024 10:42:50 Influenza, split virus, quadrivalent, PF 9 completed Crystal Earlywine null, [place] 10/11/2024 10:42:50 Influenza, split virus, quadrivalent, PF 7 completed Malini [facility] [place] & [place] 10/11/2024 10:42:50 Past Encounters Encounter ID Performer Location Encounter Start Date Encounter Closed Date Diagnosis/Indication Diagnosis SNOMED-CT Code Diagnosis ICD10 Code Diagnosis Note [id number] MD [facility] [address] [place] [address] DR MCCORD [address] [place] [address] 12/18/2022 09:57:02 12/18/2022 10:09:54 Obstructive sleep apnea syndrome 51604987 G47.33 [id number] MD [facility] [address] [place] [address] [place] [address] 10/11/2024 10:32:12 10/11/2024 10:47:15 Obstructive sleep apnea syndrome 52808423 G47.33 [id number] NAFISA LE NP [facility] [address] [address] 10/06/2024 09:54:50 10/06/2024 10:56:04 Gastroesophageal reflux disease 324309378 K21.9 Iron defic iency anemia 28660366 D50.9 History of blood transfusion 958481679 Z92.89 Chronic ki dney disease stage 3 042655978 N18.30 Fatigue 05382329 R53.83 Chronic id iopathic constipation 21041489 K59.04 [id number] NAFISA LE NP [facility] [address] [address] 11/29/2024 12:15:00 11/29/2024 13:42:06 Gastroesophageal reflux disease 793594252 K21.9 - continue Dexilant 60 mg Iron defic iency anemia 40080508 D50.9 - refer to [place] for EGD and colonoscop y History of blood transfusion 224330445 Z92.89 - small bowel follow through reviewed- Schedule Pill Cam Chronic ki dney disease stage 3 588215002 N18.30 Fatigue 03678945 R53.83 Chronic id iopathic constipation 38954993 K59.04 - trial Linzess [id number] Trey Lopez M.D [facility] [address] [place] [address] 01/03/2025 08:58:20 01/03/2025 10:18:02 Iron deficiency anemia 57532510 D50.9 Ongoing for many years. She follows [...] colonoscop y estimated 10 years ago in [place] which were negative. She continues to follow with Cardiology , Dr. Pendleton. Recommend EGD/colono scopy to further evaluate after cardiac clearance, Dr. Pendleton, has been obtained as she is prescribed Warfarin. Will obtain recent labs to review. Gastro-eso phageal reflux disease with esophagitis 744251147 K21.00 Controlled with use of Dexilant. Chronic id iopathic constipation 22790517 K59.04 Currently prescribed Miralax, Linzess 72 mcg, and Dulcolax for treatment. [id number] NAFISA LE NP [facility] [address] [address] 01/23/2025 15:34:39 01/23/2025 15:56:32 Gastroesophageal reflux disease 378480305 K21.9 - continue Dexilant 60 mg Iron defic iency anemia 20696964 D50.9 History of blood transfusion 085067655 Z92.89 Chronic ki dney disease stage 3 624145980 N18.30 Fatigue 53286389 R53.83 Chronic id iopathic constipation 08549642 K59.04 Health Concerns Section Related Observation LastModified by Organization Detai ls LastModified Time None Recorded Concern Status LastModified by Organization Details LastModified Time None Recorded Advance Directives Directive N: Payers Insurance Date Sequence Insurance Name Policy Number Policy Edwards Covered Member ID Edwards Member ID Guarantor Name 01/31/2025 1 [facility] - DUAL ELIGIBLE (MEDICARE REPLACEMENT/AD VANTAGE - HMO) [id number] Irina A Costa [id number] Irina A Costa 01/23/2025 1 [place] (MEDICARE REPLACEMENT HMO) [id number] Irina A Costa [id number] Irina A Costa 10/11/2024 1 [place]MEDICARE REPLACEMENT HMO) [id number] Irina A Costa [id number] Irina A Costa 03/14/2025 2 [place] [facility] CHO[facility] - FFS/TRADITIONA L Irina A Costa [id number] Irina A Costa 01/23/2025 1 [place] [id number] Irina A Costa [id number] Irina A Costa 01/23/2025 1 [employer] (MEDICARE REPLACEMENT/AD VANTAGE - PPO) Irina A Costa [id number] Irina A Costa 10/11/2024 2 [place] Irina A Costa [id number] Irina A Costa 10/11/2024 1 [place] [id number] Irina A Costa [id number] Irina A Costa 10/11/2024 2 MEDICAID-[facility] Mail[employer] - FFS/TRADITIONA L Irina A Costa [id number] Irina A Costa 10/11/2024 2 [employer] (PPO) Irina A Costa [id number] Irina A Costa Notes Date Note Type Note Provider [...] neurologic complaints today.Modified Wells criteria of 0. [place] of 2.She voices no sleep-related or CPAP related issues.Patient is compliant with CPAP with an apnea plus hypopnea index of 0.7. Patient had a sleep study that revealed an apnea plus hypopnea index of 29, she spent 86% of the night above 90% saturation, lowest saturation recorded was 76%. She follows with Dr. 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 Patient was again instructed to follow-up her [...] interactions with all of the prescribed and qpie-biv-wvpzcvs medications with a pharmacist, the patient again voiced understanding. The patient was instructed to go to ER if the patient does not improve or worsens, she again voiced understanding. Farhan Bae MD [address] [facility],[address], [place], [address], [place] 10/11/2024 10:49:13 11/29/2024 text/html PREVIOUS: Mrs. Natalie [...] all her comorbidities. Patient currently lives in [place] as well which is a far distance. She reports no symptoms except for worsening GERD and fatigue. CURRENT: Ms. Costa is here for follow up. She had her small bowel follow through and needs to have her pill cam. She is on weekly labs through her oncologist. Recent labs showed hemoglobin down to 7.0. She received 1st of 3 iron transfusion at [facility] today. She is scheduled for blood transfusion [...] bowel prep. Admission through the ED at [facility] would be 1 option. However patient is open to EGD/colonoscopy with Dr. Lopez in [place] since it is closer. NAFISA LE NP [address], [place], [address], [facility] 11/29/2024 13:55:56 01/03/2025 text/html 59 year [...] and colonoscopy estimated 10 years ago in [place] which were negative. She denies melena or BRBPR. She continues to follow with Cardiology, Dr. Pendleton. Ninoska Moser, CHUCK [address] [facility], [address], [place], [address], [facility] 01/05/2025 12:06:47 01/23/2025 text/html PREVIOUS: Mrs. [...] all her comorbidities. Patient currently lives in [place] as well which is a far distance. She reports no symptoms except for worsening GERD and fatigue. PREVIOUS: Ms. Costa is here for follow up. She had her small bowel follow through and needs to have her pill cam. She is on weekly labs through her oncologist. Recent labs showed hemoglobin down to 7.0. She received 1st of 3 iron transfusion at [facility] today. She is scheduled for blood transfusion [...] bowel prep. Admission through the ED at [facility] would be 1 option. However patient is open to EGD/colonoscopy with Dr. Lopez in [place] since it is closer. CURRENT: Mrs. Costa is attends via [employer] [place] today for follow up after pill cam. [...] on Audio and Video visit performed utilizing [employer] HIPAA compliant platform. Participants: patient and provider. Locations of each: Patient is at their home in [place], Provider is at the office in [place], [place]. Verbal consent was obtained before the start of the appointment obtained. NAFISA LE NP [address], [place], [address], [place] 01/23/2025 16:28:33 OBGyn Episode No OBEpisode recorded.
--- OUTSIDE RECORDS SUMMARY | 2025-05-24 09:13 | XMS_ITS | Encounter Summary ---
Author Organization [employer] ([place], [place], [place], [place]) Address [address] [place] [address] Care Team Providers Care Podiatric Foot And Ankle Specialist Name Role Phone Reji Castro MD Primary Care Provider + [phone] Encounter Details Date Type Department Care Team (Late st Contact Info) Description 08/15/2021 Transcribed Document [facility] [place] [facility] [place] [address] ProviderDelvin MD [address] [place] [address] Social History Tobacco Use Types Packs/Day Years Used Date Smoking Tobacco: Never Assessed Comments Unknown Sex and Gender Information Value Date Recorded Sex Assigned at Not on file Legal Sex Female 4:32 PM CDT Gender Identity Not on file Sexual Orientation Not on file documented as of this encounter Miscellaneous Notes * Cerner Conversion Note - Historical ProviderMD - 08/15/2021 2:00 AM CDT Plant Guide Details Entered On: 08/15/2021 1:25 EDT Performed [...] on filedocumented in this encounter Care Teams Podiatric Foot And Ankle Specialist Relationship Specialty Start Date End Date Reji Castro MD [address] [place] [address] [place] [address] PCP - General Adolescent Medicine 10/02/22 documented as of this encounter
--- OUTSIDE RECORDS SUMMARY | 2025-05-24 09:13 | XMS_ITS | Encounter Summary ---
Author Organization [employer] ([place], [place], [place], [place]) Address [address] [place] [address] Care Team Providers Care Nutrition Consultant Name Role Phone Reji Castro MD Primary Care Provider + [phone] Encounter Details Date Type Department Care Team (Late st Contact Info) Description 08/16/2021 Transcribed Document [facility] [place] Family [place] [address] ProviderDelvin MD [address] [place] [address] [phone] Social History Tobacco Use Types Packs/Day Years [...] - 08/16/2021 12:49 PM CDT Patient: IRINA TAAMYO Age: 56 years Sex: Female : 1965 [...] mL - 700 mg, IV Piggyback, Inj, [id number], infuse over 30 Minute(s), Routine Cardiovascular metoprolol [...] hrs) Last Charted Minimum Maximum Temp 98 ([facility] 10:50) 97.6 ([facility] 06:00) 98 ([facility] 18:00) Apical HR 76 ([facility] 20:32) 76 ([facility] 20:32) 76 ([facility] 20:32) Mon HR 81 (AUG 16 10:50) 67 ([facility] 14:52) 85 ([facility] 18:00) Resp Rate 18 (AUG 16 10:50) 14 ([facility] 23:00) 19 ([facility] 18:00) SBP 112 ([facility] 10:50) 95 ([facility] 14:52) 114 ([facility] 23:00) DBP 60 ([facility] 10:50) L 45 ([facility] 14:52) 63 ([facility] 18:00) MAP 74 ([facility] 10:50) 63 ([facility] 23:00) 83 ([facility] 18:00) SpO2 97 ([facility] 10:50) L 92 (SEP 24 14:52) 99 (AUG 16 03:39) General: No [...] 210 (SEP 23) 206 (SEP 22) 197 (JUL 22) Na 137 (JUL 25) 137 (SEP 24) L 135 (SEP 22) 136 (JUL 22) K 4.4 (SEP 25) 4.4 (SEP 24) 4.2 (SEP 22) 4.5 (SEP 22) Cl 106 (AUG 16) 104 (SEP 24) 102 (SEP 22) 103 (SEP 22) CO2 25 (JUL 25) 27 (SEP 24) 29 (SEP 22) 30 (AUG 13) BUN H 23 (JUL 25) H 28 (SEP 24) H 35 (SEP 22) H 50 (SEP 22) Cr H 1.40 (JUL 25) H 1.80 (SEP 24) H 1.80 (SEP 22) H 1.60 (SEP 22) Glu R H 112 (JUL 25) H 139 (JUL 24) H 114 (JUL 22) 102 (JUL 22) Ca 9.5 (JUL 25) 9.4 (SEP 24) 9.1 (SEP 22) 9.1 (JUL 22) Lactic .93 (JUL 21) L .73 (JUL 20) PT H 17.2 (JUL 25) H 18.2 (JUL 24) H 17.2 (AUG 14) H 17.0 (AUG 14) INR H 1.7 (AUG 16) H 1.8 (JUL 24) H 1.7 (AUG 14) H 1.6 (AUG 14) PTT H 39.6 (AUG 11) AST 19 (JUL 24) 18 (SEP 22) 17 (SEP 22) 16 (AUG 12) ALT 17 (JUL 24) 17 (AUG 13) 19 (AUG 13) 23 (AUG 12) ALK P 101 (AUG 15) 102 (AUG 13) 102 (AUG 13) 110 (AUG 12) T Bili 0.4 (JUL 24) 0.4 (JUL 22) 0.5 (AUG 13) 0.6 (AUG 12) PTN 7.0 (AUG 15) 7.3 (AUG 13) 6.9 (AUG 13) 7.6 (AUG 12) ALB 3.5 (JUL 24) 3.8 (AUG 13) 3.9 (AUG 13) 3.9 [...] on filedocumented in this encounter Care Teams Nutrition Consultant Relationship Specialty Start Date End Date Reji Castro MD [address] [place] [id number] PCP - General Adolescent Medicine 10/02/22 documented as of this encounter
--- OUTSIDE RECORDS SUMMARY | 2025-05-24 09:13 | XMS_ITS | Encounter Summary ---
Author Organization [employer] ([place], [place], [place], [place]) Address [address] [place] [address] Care Team Providers Care Supervisor Pleating Name Role Phone Reji Castro MD Primary Care Provider + [phone] Encounter Details Date Type Department Care Team (Late st Contact Info) Description 08/12/2021 Transcribed Document [facility] [place] Family Medicine Replaced by [facility] [address] ProviderDelvin MD [address] [place] [address] 397291 Social History Tobacco Use Types Packs/Day Years Used Date Smoking Tobacco: Never Assessed Comments Unknown Sex and Gender Information Value Date Recorded Sex Assigned at Not on file Legal Sex Female 4:32 PM CDT Gender Identity Not on file Sexual Orientation Not on file documented as of this encounter Miscellaneous Notes * [employer]ner Conversion Note - Historical ProviderMD - 08/12/2021 2:00 AM CDT Political Theory Professor Details Entered On: 08/12/2021 0:22 EDT Performed On: 08/12/2021 2:00 EDT by Cherri Webb V, RN Order Details Transport Mode Order Detail [...] filedocumented in this encounter Care Teams Supervisor Pleating Relationship Specialty Start Date End Date Reji Castro MD [address] [place] [address] PCP - General Adolescent Medicine 10/02/22 documented as of this encounter
--- OUTSIDE RECORDS SUMMARY | 2025-05-24 09:13 | XMS_ITS | Encounter Summary ---
Author Organization [employer] ([place], [place], [place], [place]) Address [address] [place] [address] Care Team Providers Care Manager Hematology Name Role Phone Reji Castro MD Primary Care Provider + [phone] Encounter Details Date Type Department Care Team (Late st Contact Info) Description 08/11/2021 Transcribed Document [facility] [place] Family Medicine [address] [place] [address] ProviderDelvin MD [address] [place] [address] [phone] Social History Tobacco Use Types Packs/Day Years [...] 08/12/2021 9:31 EDT Electronically signed by Lanny [facility] Conversion Scourer Cerner at 03/09/2023 9:00 PM CDT documented in this encounter Plan of Treatment Not on file documented as of this encounter Visit Diagnoses Not on filedocumented in this encounter Care Teams Manager Hematology Relationship Specialty Start Date End Date Reji Castro MD [address] [place] [address] PCP - General Adolescent Medicine 10/02/22 documented as of this encounter
--- OUTSIDE RECORDS SUMMARY | 2025-05-24 09:13 | XMS_ITS | Encounter Summary ---
Author Organization [employer] ([place], [place], [place], [place]) Address [address] [place] [address] Care Team Providers Care Stiff Leg Derrick Operator Name Role Phone Reji Castro MD Primary Care Provider + [phone] Encounter Details Date Type Department Care Team (Late st Contact Info) Description 08/12/2021 Transcribed Document [facility] [place] Family Medicine [address] [place] [address] ProviderDelvin MD [address] [place] [address] [phone] Social History Tobacco Use Types Packs/Day Years [...] Active Orders Reviewed : Yes Cherri Webb RN - 08/12/2021 8:03 EDT documented in this encounter Plan of Treatment Not on file documented as of this encounter Visit Diagnoses Not on filedocumented in this encounter Care Teams Stiff Leg Derrick Operator Relationship Specialty Start Date End Date Reji Castro MD [address] [place] [address] PCP - General Adolescent Medicine 10/02/22 documented as of this encounter
--- OUTSIDE RECORDS SUMMARY | 2025-05-24 09:13 | XMS_ITS | Encounter Summary ---
Author Organization [facility] ([place], [place], [place], [place]) Address [address] [place] [address] Care Team Providers Care Extrusion Die Repair Manager Name Role Phone Reji Castro MD Primary Care Provider + [phone] Encounter Details Date Type Department Care Team (Late st Contact Info) Description 08/16/2021 Transcribed Document [facility] [place] [facility] [place] [address] ProviderDelvin MD [address] [place] [address] 306161 Social History Tobacco Use Types Packs/Day Years Used Date Smoking Tobacco: Never Assessed Comments Unknown Sex and Gender Information Value Date Recorded Sex Assigned at Not on file Legal Sex Female 4:32 PM CDT Gender Identity Not on file Sexual Orientation Not on file documented as of this encounter Miscellaneous Notes * Cerner Conversion Note - Delvin ProviderMD - 08/16/2021 5:00 AM CDT Chart Check [...] on filedocumented in this encounter Care Teams Extrusion Die Repair Manager Relationship Specialty Start Date End Date Reji Castro MD [address] [place] [address] PCP - General Adolescent Medicine 10/02/22 documented as of this encounter
--- OUTSIDE RECORDS SUMMARY | 2025-05-24 09:13 | XMS_ITS | Encounter Summary ---
Author Organization [employer] ([place], [place], [place], [place]) Address [address] [place] [address] Care Team Providers Care Manager Banking Name Role Phone Reji Castro MD Primary Care Provider + [phone] Encounter Details Date Type Department Care Team (Late st Contact Info) Description 08/22/2021 Transcribed Document [facility] [place] [facility] [place] [address] ProviderDelvin MD [address] [place] [address] [phone] Social History Tobacco Use Types Packs/Day Years Used Date Smoking Tobacco: Never Assessed Comments Unknown Sex and Gender Information Value Date Recorded Sex Assigned at Not on file Legal Sex Female 4:32 PM CDT Gender Identity Not on file Sexual Orientation Not on file documented as of this encounter Miscellaneous Notes * Cerner Conversion Note - Delvin ProviderMD - 08/22/2021 3:51 PM CDT Patient: IRINA [...] cefTRIAXone: 2 Gram, 100 mL/Hr, IV Piggyback, [id number] diphenhydrAMINE: 25 mg, Oral, Q6H, PRN: Itching [...] Oral, BID cefTRIAXone 2 Gram, IV Piggyback, [id number] citalopram 20 mg tab 40 mg 2 [...] Bioprosthetic mitral valve replacement / SNOMED CT 522495891 / Confirmed Chronic kidney disease / SNOMED CT 4758859503 / Confirmed COPD - Chronic obstructive pulmonary disease / SNOMED CT 615676769 / Confirmed History of obstructive sleep apnea / IMO 76994864 / Confirmed HLD - Hyperlipidemia / SNOMED CT 051196737 / Confirmed HTN - Hypertension / SNOMED CT 7826217922 / Confirmed Canceled: Atrial fibrillation / SNOMED CT 26724850, Active Problems (25) AIHA (autoimmune hemolytic anemia) [...] Monitor GFR adjust medications. Electronically signed by [facility] Conversion Electroencephalographic Technician Cerner at 03/09/2023 8:43 PM CDT documented in this encounter Plan of Treatment Not on file documented as of this encounter Visit Diagnoses Not on filedocumented in this encounter Care Teams Manager Banking Relationship Specialty Start Date End Date Reji Castro MD [address] [place] [address] PCP - General Adolescent Medicine 10/02/22 documented as of this encounter
--- OUTSIDE RECORDS SUMMARY | 2025-05-24 09:13 | XMS_ITS | Encounter Summary ---
Author Organization [employer] ([place], [place], [place], [place]) Address [address] [place] [address] Care Team Providers Care Outsewer Name Role Phone Reji Castro MD Primary Care Provider + [phone] Encounter Details Date Type Department Care Team (Late st Contact Info) Description 08/21/2021 Transcribed Document [facility] [place] Family Medicine [address] [place] [address] ProviderDelvin MD [address] [place] [address] 769201 Social History Tobacco Use Types Packs/Day Years Used Date Smoking Tobacco: Never Assessed Comments Unknown Sex and Gender Information Value Date Recorded Sex Assigned at Not on file Legal Sex Female 4:32 PM CDT Gender Identity Not on file Sexual Orientation Not on file documented as of this encounter Miscellaneous Notes * Cerner Conversion Note - Delvin ProviderMD - 08/21/2021 3:08 PM CDT On Going Discharge Planning Entered On: 08/21/2021 15:11 EDT Performed On: 08/21/2021 15:08 EDT by MADINA LOVETT RN - House WreckerCold Storage Worker Progress Note Discharge Arrangements : Patient [...] : Yes MADINA LOVETT RN - House Wrecker - 08/21/2021 15:08 EDT Narrative Progress Note Narrative Progress Note : RRS Low Boost 5 Day 08/29 Patient was admitted for staph infection and port removal. She had a new port placed on 08/19. Patient needs to remain inpatient until her coumadin is at therapeutic level per MD in [facility]. Patient will need IV rocephin until 09/08. CM faxed the order to Urszula with [facility]. CM also faxed order for home health to [facility] which the patient states she has used [...] is at a therapeutic level per at [facility]. Patient will need IV rocephin until 09/08. Patient will need home health and says she has used [facility] in the past. CM will refer her to them after final antibiotic order is placed. DCP: home with home health MADINA LOVETT RN - House Wrecker - 08/20/21 13:35:46 RRS Low Boost 5 Day 05/26 Patient was admitted for staph infection and port removal. She had a new port done on . 08/19. Patient needs to remain inpatient after surgery until her coumadin is at a therapeutic level per at [facility]. Waiting on culture results for final abx plan. May need IV abx at home via port. Patient will need home health and lvies in [place]. [facility] home [facility] is a possibility. MADINA LOVETT RN - House Wrecker - 08/19/21 15:40:22 RRS Low Boost 5 [...] will need home health and lives in [place]. [facility] home [facility] is a possibility. CM will continue to follow. DCP: MADINA LOVETT, RN - House Wrecker - 08/18/21 15:47:49 (late entry from 08/15-) [...] and send referrals as appropriate. JULIO STEWART, RN-House Wrecker ED - 08/18/21 10:38:39 MADINA LOVETT, JEREMIAH - House Wrecker - 08/21/2021 15:08 EDT Electronically signed by Lanny [facility] Conversion Final Expense Agent Cerner at 03/09/2023 8:32 PM CDT documented in this encounter Plan of Treatment Not on file documented as of this encounter Visit Diagnoses Not on filedocumented in this encounter Care Teams Outsewer Relationship Specialty Start Date End Date Reji Castro MD [address] [place] [address] PCP - General Adolescent Medicine 10/02/22 documented as of this encounter
--- OUTSIDE RECORDS SUMMARY | 2025-05-24 09:13 | XMS_ITS | Encounter Summary ---
Author Organization [employer] ([place], [place], [place], [place]) Address [address] [place] [address] Care Team Providers Care Quality Assurance Clerk Name Role Phone Reji Castro MD Primary Care Provider + [phone] Encounter Details Date Type Department Care Team (Late st Contact Info) Description 08/25/2021 Transcribed Document [facility] [place] [facility] [place] [address] ProviderDelvin MD [address] [place] [address] [phone] Social History Tobacco Use Types Packs/Day Years [...] cefTRIAXone: 2 Gram, 100 mL/Hr, IV Piggyback, D57HVhq diphenhydrAMINE: 25 mg, Oral, Q6H, PRN: Itching [...] Oral, BID cefTRIAXone 2 Gram, IV Piggyback, C77DSak citalopram 20 mg tab 40 mg 2 [...] Bioprosthetic mitral valve replacement / SNOMED CT 949187726 / Confirmed Chronic kidney disease / SNOMED CT 4718176720 / Confirmed COPD - Chronic obstructive pulmonary disease / SNOMED CT 025498518 / Confirmed History of obstructive sleep apnea / IMO 98174313 / Confirmed HLD - Hyperlipidemia / SNOMED CT 180487992 / Confirmed HTN - Hypertension / SNOMED CT 8857325147 / Confirmed Canceled: Atrial fibrillation / SNOMED CT 38254813, Active Problems (25) AIHA (autoimmune hemolytic anemia) [...] (AUG 25) 3.9 (AUG 03) 3.8 (AUG 23) 3.7 (AUG 22) Cl [...] in this encounter Care Teams Quality Assurance Clerk Relationship Specialty Start Date End Date Reji Castro MD [address] [place] [address] PCP - General Adolescent Medicine 10/02/22 documented as of this encounter
--- OUTSIDE RECORDS SUMMARY | 2025-05-24 09:13 | XMS_ITS | Encounter Summary ---
Author Organization [employer] ([place], [place], [place], [place]) Address [address] [place] [address] Care Team Providers Care Ham Boner Name Role Phone Reji Castro MD Primary Care Provider + [phone] Encounter Details Date Type Department Care Team (Late st Contact Info) Description 08/12/2021 Transcribed Document [facility] [place] Family Medicine [facility] [place] [address] ProviderDelvin MD [address] [place] [address] 522841 Social History Tobacco Use Types Packs/Day Years [...] Vancomycin HPI: 56 y/o F presenting to [facility] with history of COPD, atrial fibrillation, [...] Encounter/Past 24 Hours) Creatinine Level 2.40 mg/dL ME 08/12/2021 01:05 Bun/Creatinine 28.8 ME 08/12/2021 01:05 Est. CrCl: 35 mL/min Intake [...] dosing 2.) Will check random level tomorrow (08/13) AM. Will optimize regimen based on result. [...] questions. Thank you, Andrea Moraes, PharmD PGY1 Manager Print Pager: [phone], Ext. [phone] Electronically signed by Lanny [facility] Conversion Contact Acid Plant Operator Cerner at 03/09/2023 8:45 PM CDT documented in this encounter Plan of Treatment Not on file documented as of this encounter Visit Diagnoses Not on filedocumented in this encounter Care Teams Ham Boner Relationship Specialty Start Date End Date Reji Castro MD [address] [place] [address] PCP - General Adolescent Medicine 10/02/22 documented as of this encounter
--- OUTSIDE RECORDS SUMMARY | 2025-05-24 09:13 | XMS_ITS | Encounter Summary ---
Author Organization [employer] ([place], [place], [place], [place]) Address [address] [place] [address] Care Team Providers Care Pretzel Cooker Name Role Phone Reji Castro MD Primary Care Provider + [phone] Encounter Details Date Type Department Care Team (Late st Contact Info) Description 08/22/2021 Transcribed Document [facility] [place] [facility] [place] [address] ProviderDelvin MD [address] [place], [place] 330881 Social History Tobacco Use Types Packs/Day Years [...] 08/22/2021 8:20 EDT by Lamar Sheppard Diet Ehs Engineer Nutrition Assessment Nutrition Assessment Reason : Other: LOS Lamar Sheppard Diet Ehs Engineer - 08/22/2021 8:20 EDT Nutrition Recommendations Dietitian [...] reported. No nutrition dx at this time. field sampling technician to rescreen in 7-10 days. Lamar Sheppard, Diet Ehs Engineer - 08/22/2021 12:04 EDT Electronically signed by Lanny, [facility] Conversion Field Map Technician Cerner at 03/09/2023 8:41 PM CDT documented in this encounter Plan of Treatment Not on file documented as of this encounter Visit Diagnoses Not on filedocumented in this encounter Care Teams Pretzel Cooker Relationship Specialty Start Date End Date Reji Castro MD [address] [place] [address] PCP - General Adolescent Medicine 10/02/22 documented as of this encounter
--- OUTSIDE RECORDS SUMMARY | 2025-05-24 09:13 | XMS_ITS | Encounter Summary ---
Author Organization [employer] ([place], [place], [place], [place]) Address [address] [place] [address] Care Team Providers Care Peg Driver Name Role Phone Reji Castro MD Primary Care Provider + [phone] Encounter Details Date Type Department Care Team (Late st Contact Info) Description 08/19/2021 Transcribed Document [facility] [place] Family Medicine [address] [place] [address] ProviderDelvin MD [address] [place] [address] [phone] Social History Tobacco Use Types Packs/Day Years [...] Performed On: 08/19/2021 5:00 EDT by Kayy Garcia RN Chart Check Powerplans Initiated/Discontinued as Appropriate : Not applicable All Active Orders Reviewed : Yes Kayy Garcia RN - 08/19/2021 7:52 EDT documented in this encounter Plan of Treatment Not on file documented as of this encounter Visit Diagnoses Not on filedocumented in this encounter Care Teams Peg Driver Relationship Specialty Start Date End Date Reji Castro MD [address] [place] [address] PCP - General Adolescent Medicine 10/02/22 documented as of this encounter
--- OUTSIDE RECORDS SUMMARY | 2025-05-24 09:13 | XMS_ITS | Encounter Summary ---
Author Organization [employer] ([place], [place], [place], [place]) Address [address] [place] [address] Care Team Providers Care Electric Well Logging Operator Name Role Phone Reji Castro MD Primary Care Provider + [phone] Encounter Details Date Type Department Care Team (Late st Contact Info) Description 08/16/2021 Transcribed Document [facility] [place] Family Medicine [facility] [place] [address] ProviderDelvin MD [address] [place] [address] Social History Tobacco Use Types Packs/Day Years Used Date Smoking Tobacco: Never Assessed Comments Unknown Sex and Gender Information Value Date Recorded Sex Assigned at Not on file Legal Sex Female 4:32 PM CDT Gender Identity Not on file Sexual Orientation Not on file documented as of this encounter Miscellaneous Notes * Cerner Conversion Note - Historical ProviderMD - 08/16/2021 2:00 AM CDT Saw Man Details Entered On: 08/16/2021 2:41 EDT Performed [...] on filedocumented in this encounter Care Teams Electric Well Logging Operator Relationship Specialty Start Date End Date Reji Castro MD [address] [place] [address] PCP - General Adolescent Medicine 10/02/22 documented as of this encounter
--- OUTSIDE RECORDS SUMMARY | 2025-05-24 09:13 | XMS_ITS | Encounter Summary ---
Author Organization [employer] ([place], [place], [place], [place]) Address [address] [place] [address] Care Team Providers Care Firer Automatic Stoker Name Role Phone Reji Castro MD Primary Care Provider + [phone] Encounter Details Date Type Department Care Team (Late st Contact Info) Description 08/11/2021 Transcribed Document [facility] [place] [facility] [place] [address] ProviderDelvin MD [address] [place] [address] 374351 Social History Tobacco Use Types Packs/Day Years Used Date Smoking Tobacco: Never Assessed Comments Unknown Sex and Gender Information Value Date Recorded Sex Assigned at Not on file Legal Sex Female 4:32 PM CDT Gender Identity Not on file Sexual Orientation Not on file documented as of this encounter Miscellaneous Notes * Cerner Conversion Note - Historical ProviderMD - 08/11/2021 4:16 PM CDT [place] Suicide Severity Rating Scale (C-SSRS) Entered On: 08/11/2021 18:49 EDT Performed On: 08/11/2021 18:46 EDT by MARIPOSA JACQUES RN [place] Suicide Severity Rating Scale (C-SSRS) CSSRS Past [...] [address] [place] [address] PCP - General Adolescent Medicine 10/02/22 documented as of this encounter
--- OUTSIDE RECORDS SUMMARY | 2025-05-24 09:13 | XMS_ITS | Encounter Summary ---
Author Organization [employer] ([place], [place], [place], [place]) Address [address] [place] [address] Care Team Providers Care Manager Procurement Name Role Phone Reji Castro MD Primary Care Provider [phone] Encounter Details Date Type Department Care Team (Late st Contact Info) Description 08/16/2021 Transcribed Document [facility] Radiology [address] [place] [address] Loren Solorzano MD [address] [place] [address] [place] [address] Social History Tobacco Use Types Packs/Day Years [...] mg, 14 mL, 128 mL/Hr, IV Piggyback, [id number] Dextrose 50% injection: 12.5 Gram, IV Push, [...] mL 700 mg 14 mL, IV Piggyback, D74URna famotidine 20 mg tab 20 mg 1 [...] Bioprosthetic mitral valve replacement / SNOMED CT 337263268 / Confirmed Chronic kidney disease / SNOMED CT 2117838692 / Confirmed COPD - Chronic obstructive pulmonary disease / SNOMED CT 473344903 / Confirmed History of obstructive sleep apnea / IMO 79921225 / Confirmed HLD - Hyperlipidemia / SNOMED CT 969688927 / Confirmed HTN - Hypertension / SNOMED CT 7529151816 / Confirmed Canceled: Atrial fibrillation / SNOMED CT 08125389, Active Problems (25) AIHA (autoimmune hemolytic anemia) [...] hrs) Last Charted Minimum Maximum Temp 98 ([facility] 10:50) 97.6 ([facility] 06:00) 98 ([facility] 18:00) Apical HR 76 ([facility] 20:32) 76 ([facility] 20:32) 76 ([facility] 20:32) Mon HR 81 ([facility] 10:50) 67 ([facility] 14:52) 85 ([facility] 18:00) Resp Rate 18 ([facility] 10:50) 14 ([facility] 23:00) 19 ([facility] 18:00) SBP 112 ([facility] 10:50) 95 ([facility] 14:52) 114 ([facility] 23:00) DBP 60 ([facility] 10:50) L 45 ([facility] 14:52) 63 ([facility] 18:00) MAP 74 ([facility] 10:50) 63 ([facility] 23:00) 83 ([facility] 18:00) SpO2 97 ([facility] 10:50) L 92 ([facility] 14:52) 99 ([facility] 03:39) General: Alert and oriented, No acute [...] H 17.0 (SEP 23) INR H 1.7 (SEP 25) H 1.8 (SEP 24) H 1.7 [...] (SEP 22) 3.9 (SEP 21) Lipase 224 (AUG 13) Troponin <0.015 (AUG [...] EDT BIN HERNANDEZ, DO-INT Discontinued Medications: acetaminophen-hydrocodone ([place] 10 mg-325 mg oral tablet) 1 Tab, [...] Hold home meds SSI #Depression Celexa #Pain [place] 10 mg every 6 hours as needed [...] filedocumented in this encounter Care Teams Manager Procurement Relationship Specialty Start Date End Date Reji Castro MD [address] [place] [address] PCP - General Adolescent Medicine 10/02/22 documented as of this encounter
--- OUTSIDE RECORDS SUMMARY | 2025-05-24 09:13 | XMS_ITS | Encounter Summary ---
Author Organization [employer] ([place], [place], [place], [place]) Address [address] [place] [address] Care Team Providers Care Wing Commander Name Role Phone Reji Castro MD Primary Care Provider + [phone] Encounter Details Date Type Department Care Team (Late st Contact Info) Description 08/16/2021 Transcribed Document [facility] Family Medicine [facility] [place] [address] ProviderDelvin MD [address] [place] [address] [phone] Social History Tobacco Use Types Packs/Day Years Used Date Smoking Tobacco: Never Assessed Comments Unknown Sex and Gender Information Value Date Recorded Sex Assigned at Not on file Legal Sex Female 4:32 PM CDT Gender Identity Not on file Sexual Orientation Not on file documented as of this encounter Miscellaneous Notes * Cerner Conversion Note - Historical ProviderMD - 08/16/2021 5:00 AM CDT Height and Weight, Routine Entered On: 08/16/2021 9:19 EDT Performed On: 08/16/2021 5:00 EDT by JULIO LUND RN-PATIENT CARE BEDSIDE NON-EXEMPT Height and Weight, Routine Routine Weight Source : Bed scale Routine Weight Entry Format : [place] Routine Weight, Pounds : 190 lb Routine Weight Calculation : 86.36 kg Height Source : Stated Height Entry Format : [place] Height, Feet : 5 ft Height, Inches : 4 Inch Clinical Height : 162.56 cm Body Surface Area (BSA), Routine : 1.92 m2 Body Mass Index (BMI), Routine : 32.68 kg/m2 JULIO LUND RN-PATIENT CARE BEDSIDE NON-EXEMPT - 08/16/2021 9:18 EDT Electronically signed by Lanny, [facility] Conversion Strategic Planner Cerner at 03/09/2023 8:33 PM CDT documented in this encounter Plan of Treatment Not on file documented as of this encounter Visit Diagnoses Not on filedocumented in this encounter Care Teams Wing Commander Relationship Specialty Start Date End Date Reji Castro MD [address] [place] [address] PCP - General Adolescent Medicine 10/02/22 documented as of this encounter
--- OUTSIDE RECORDS SUMMARY | 2025-05-24 09:13 | XMS_ITS | Encounter Summary ---
Author Organization [employer] ([place], [place], [place], [place]) Address [address] [place] [address] Care Team Providers Care Beef Farmer Name Role Phone Reji Castro MD Primary Care Provider + [phone] Encounter Details Date Type Department Care Team (Late st Contact Info) Description 08/21/2021 Transcribed Document [facility] [place] [address] ProviderDelvin MD [address] [place] [address] [phone] Social History Tobacco Use Types Packs/Day Years [...] her port could not be accessed. Her ear nose throat physician aspirated fluid from the port that was evidently purulent. I have not yet been able to track down that culture. After the aspiration she developed fever to 103, severe CHEUNG, myalgias and arthralgias. She was admitted to [facility]. She was in the hospital [...] subsequently contacted and told to report to [facility] because she had + blood cutures concerning for an infected portacath +/- PVE. 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 Integumentary: Warm, [place]. Neurologic: Alert, Oriented, No focal deficits. Psychiatric: [...] (AUG 18) K 3.8 (JUL 30) 3.9 (SEP ) 4.3 (AUG 19) 4.6 (AUG 18) Cl 103 (JUL 30) 103 (AUG 20) 105 (AUG 19) 105 (AUG 18) CO2 31 (SEP 30) 29 (SEP 29) 28 (SEP ) 28 (AUG 18) BUN 19 (JUL 30) 18 (SEP ) 16 (AUG 19) 18 (AUG 18) Cr H 1.30 (JUL 30) H 1.40 (AUG 20) H 1.60 (AUG 19) H 1.40 (AUG 18) Glu R H 129 (JUL 30) H 125 (JUL 29) H 191 [...] filedocumented in this encounter Care Teams Beef Farmer Relationship Specialty Start Date End Date Reji Castro MD [address] [place] [address] PCP - General Adolescent Medicine 10/02/22 documented as of this encounter
--- OUTSIDE RECORDS SUMMARY | 2025-05-24 09:13 | XMS_ITS | Encounter Summary ---
Author Organization [employer] ([place], [place], [place], [place]) Address [address] [place] [address] Care Team Providers Care Parts Interpreter Name Role Phone Reji Castro MD Primary Care Provider + [phone] Encounter Details Date Type Department Care Team (Late st Contact Info) Description 08/21/2021 Transcribed Document [facility] Family Medicine [address] [place] [address] ProviderDelvin MD [address] [place] [address] [phone] Social History Tobacco Use Types Packs/Day Years Used Date Smoking Tobacco: Never Assessed Comments Unknown Sex and Gender Information Value Date Recorded Sex Assigned at Not on file Legal Sex Female 4:32 PM CDT Gender Identity Not on file Sexual Orientation Not on file documented as of this encounter Miscellaneous Notes * Cerner Conversion Note - Delvin ProviderMD - 08/21/2021 5:00 PM CDT Chart Check - Review Order Profile Entered On: 08/21/2021 18:33 EDT Performed On: 08/21/2021 17:00 EDT by Cynthia Perez, RN Chart Check Powerplans Initiated/Discontinued as Appropriate : Yes All Active Orders Reviewed : Yes Cynthia Perez RN - 08/21/2021 18:33 EDT Electronically signed by Lanny [facility] Conversion Pit Inspector Cerner at 03/09/2023 8:36 PM CDT documented in this encounter Plan of Treatment Not on file documented as of this encounter Visit Diagnoses Not on filedocumented in this encounter Care Teams Parts Interpreter Relationship Specialty Start Date End Date Reji Castro MD [address] [place] [address] PCP - General Adolescent Medicine 10/02/22 documented as of this encounter
--- OUTSIDE RECORDS SUMMARY | 2025-05-24 09:13 | XMS_ITS | Encounter Summary ---
Author Organization [employer] ([place], [place], [place], [place]) Address [address] [place] [address] Care Team Providers Care Field Human Resources Manager Name Role Phone Reji Castro MD Primary Care Provider + [phone] Encounter Details Date Type Department Care Team (Late st Contact Info) Description 08/25/2021 Transcribed Document [facility] Family Medicine [facility] [place] [address] ProviderDelvin MD [address] [place] [phone] Social History Tobacco Use Types Packs/Day Years Used Date Smoking Tobacco: Never Assessed Comments Unknown Sex and Gender Information Value Date Recorded Sex Assigned at Not on file Legal Sex Female 4:32 PM CDT Gender Identity Not on file Sexual Orientation Not on file documented as of this encounter Miscellaneous Notes * [employer]ner Conversion Note - Historical ProviderMD - 08/25/2021 3:50 PM CDT Patient: IRINA TAMAYO Age: 56 years Sex: Female : 1965 Associated Diagnoses: None Author: FAIZA YOUSSEF, DO Subjective pt seen and examined 08/25 tells me that for the last 3 days she hasn't had much energy and hasn't been very active. she tells me that she hurts in all her joints and her muscles. she tells me that she feels that way when her blood counts are lower than 8. she tells me that her acrobatic rigger has recommended she stay above 8 for [...] cefTRIAXone: 2 Gram, 100 mL/Hr, IV Piggyback, A54IIup diphenhydrAMINE: 25 mg, Oral, Q6H, PRN: Itching [...] Oral, BID cefTRIAXone 2 Gram, IV Piggyback, F68PSmm citalopram 20 mg tab 40 mg 2 [...] Bioprosthetic mitral valve replacement / SNOMED CT 126619647 / Confirmed Chronic kidney disease / SNOMED CT 4251352187 / Confirmed COPD - Chronic obstructive pulmonary disease / SNOMED CT 079268526 / Confirmed History of obstructive sleep apnea / IMO 37193282 / Confirmed HLD - Hyperlipidemia / SNOMED CT 173122405 / Confirmed HTN - Hypertension / SNOMED CT 2679566722 / Confirmed Canceled: Atrial fibrillation / SNOMED CT 84072110, Active Problems (25) AIHA (autoimmune hemolytic anemia) [...] 26.5 \ Radiology Results (Last 48 hours) [id number] -- 08/11/2021 21:21 CR Chest 1 Vw [...] (AUG 13) Troponin <0.015 (AUG 25) <0.015 (SEP 21) <0.015 (SEP 20) <0.015 (SEP 20) . [...] Hold home meds SSI Depression Celexa Pain [place] 10 mg every 6 hours as needed CODE STATUS. Full code Dispo: H/H stable, will transfuse one unit prbcs to reach goal hgb f/u trop need therapeutic inr for discharge, pharm managing Time spent 26 minutes Electronically signed by Lnany, [facility] Conversion Electrician Powerhouse Cerner at 03/09/2023 8:51 PM CDT documented in this encounter Plan of Treatment Not on file documented as of this encounter Visit Diagnoses Not on filedocumented in this encounter Care Teams Field Human Resources Manager Relationship Specialty Start Date End Date Reji Castro MD [address] [place] [address] PCP - General Adolescent Medicine 10/02/22 documented as of this encounter
--- OUTSIDE RECORDS SUMMARY | 2025-05-24 09:13 | XMS_ITS | Encounter Summary ---
Author Organization [employer] ([place], [place], [place], [place]) Address [address] [place] [address] Care Team Providers Care Asphalt Distributor Tender Name Role Phone Reji Castro MD Primary Care Provider + [phone] Encounter Details Date Type Department Care Team (Late st Contact Info) Description 08/21/2021 Transcribed Document [facility] [place] [facility] [place] [address] ProviderDelvin MD [address] [place] [phone] Social History Tobacco Use Types Packs/Day Years [...] of obstructive uropathy with left hydronephrosis in 2014 requiring ureteral stent. Per the patient her [...] cefTRIAXone: 2 Gram, 100 mL/Hr, IV Piggyback, I15ATob diphenhydrAMINE: 25 mg, Oral, Q6H, PRN: Itching [...] Oral, BID cefTRIAXone 2 Gram, IV Piggyback, I24APwd citalopram 20 mg tab 40 mg 2 [...] History of obstructive sleep apnea / IMO 22920911 / Confirmed Bioprosthetic mitral valve replacement / SNOMED CT 617967044 / Confirmed Chronic kidney disease / SNOMED CT 2455849110 / Confirmed COPD - Chronic obstructive pulmonary disease / SNOMED CT 073728807 / Confirmed HTN - Hypertension / SNOMED CT 1000977774 / Confirmed HLD - Hyperlipidemia / SNOMED CT 840841655 / Confirmed Amblyopia / SNOMED CT 0330959049 / Confirmed 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 / SNOMED CT 871993904 / Confirmed Myocardial infarction / SNOMED CT 73194635 / Confirmed Atrial fibrillation / SNOMED CT 17242109 / Confirmed GERD - Gastro-esophageal reflux disease / SNOMED CT 3649793384 / Confirmed Diverticulosis / SNOMED CT 4959913759 / Confirmed Hepatomegaly / SNOMED CT 036668562 / Confirmed Renal calculus / SNOMED CT 644162573 / Confirmed Ovarian cyst / SNOMED CT 092865563 / Confirmed Arthritis / SNOMED CT 2386768 / Confirmed Back pain / PNED [id number] / Confirmed Fibromyalgia / SNOMED CT 29329195 / Confirmed Restless legs syndrome / SNOMED CT 09090616 / Confirmed Diabetes mellitus type II / SNOMED CT 23221595 / Confirmed Thyroid disease / SNOMED CT 934189221 / Confirmed Edema / SNOMED CT 533105657 / Confirmed BLE neuropathy hands and feet / Confirmed frequent headache / Confirmed AIHA (autoimmune hemolytic anemia) / SNOMED CT 7592360952 / Confirmed Resolved: Bronchitis / SNOMED CT 62903436 Resolved: Bowel obstruction / SNOMED CT 009489101 Canceled: Atrial fibrillation / SNOMED CT 72935982 Canceled: Lazy eye / SNOMED CT 743429625 lazy eye blindness (left eye) Canceled: Heart failure / SNOMED CT 162472202 Canceled: Heart valve / SNOMED CT 815949662 Canceled: High blood pressure / SNOMED CT 98214638 Canceled: Hyperlipidemia / SNOMED CT 73179983 Canceled: Cardiac arrhythmia / SNOMED CT 8830428519 Canceled: COPD / SNOMED CT 82279577 Canceled: Diabetes mellitus / SNOMED CT 264608973 Canceled: Anemia, iron deficiency / SNOMED CT 179685235, Active Problems (25) AIHA (autoimmune hemolytic anemia) [...] EDT Height Source Stated Height Entry Format [place] Height/Length, BELGIAN (ft) 5 ft Height/Length BELGIAN 4 Inch CLINICALHEIGHT 162.56 cm Routine Weight Source Standing scale Routine Weight Entry Format [place] Routine Weight, Pounds 204 lb Routine Weight, [...] on filedocumented in this encounter Care Teams Asphalt Distributor Tender Relationship Specialty Start Date End Date Reji Castro MD [address] [place] [address] PCP - General Adolescent Medicine 10/02/22 documented as of this encounter
--- OUTSIDE RECORDS SUMMARY | 2025-05-24 09:13 | XMS_ITS | Encounter Summary ---
Author Organization [employer] ([place], [place], [place], [place]) Address [address] [place] [address] Care Team Providers Care Cobbler Mckay Name Role Phone Reji Castro MD Primary Care Provider + [phone] Encounter Details Date Type Department Care Team (Late st Contact Info) Description 08/21/2021 Transcribed Document [facility] Family Medicine [address] [place] [address] ProviderDelvin MD [address] [place] [address] Social History Tobacco Use Types Packs/Day Years [...] Performed On: 08/21/2021 5:00 EDT by Genna Gonsalez RN Chart Check Powerplans Initiated/Discontinued as Appropriate : Yes All Active Orders Reviewed : Yes Genna Gonsalez RN - 08/21/2021 6:31 EDT documented in this encounter Plan of Treatment Not on file documented as of this encounter Visit Diagnoses Not on filedocumented in this encounter Care Teams Cobbler Mckay Relationship Specialty Start Date End Date Reji Castro MD [address] [place] [address] PCP - General Adolescent Medicine 10/02/22 documented as of this encounter
--- OUTSIDE RECORDS SUMMARY | 2025-05-24 09:13 | XMS_ITS | Encounter Summary ---
Author Organization [employer] ([place], [place], [place], [place]) Address [address] [place] [address] Care Team Providers Care Cover Remover Name Role Phone Reji Castro MD Primary Care Provider + [phone] Encounter Details Date Type Department Care Team (Late st Contact Info) Description 08/12/2021 Transcribed Document [facility] Family Medicine [facility] [place] [address] ProviderDelvin MD [address] [place] [phone] Social History Tobacco Use Types Packs/Day Years Used Date Smoking Tobacco: Never Assessed Comments Unknown Sex and Gender Information Value Date Recorded Sex Assigned at Not on file Legal Sex Female 4:32 PM CDT Gender Identity Not on file Sexual Orientation Not on file documented as of this encounter Miscellaneous Notes * Cerner Conversion Note - Historical ProviderMD - 08/12/2021 12:28 PM CDT Pain [...] on filedocumented in this encounter Care Teams Cover Remover Relationship Specialty Start Date End Date Reji Castro MD [address] [place] [address] PCP - General Adolescent Medicine 10/02/22 documented as of this encounter
--- OUTSIDE RECORDS SUMMARY | 2025-05-24 09:13 | XMS_ITS | Encounter Summary ---
Author Organization [employer] ([place], [place], [place], [place]) Address [address] [place] [address] Care Team Providers Care Dispatcher Automobile Rental Name Role Phone Reji Casrto MD Primary Care Provider + [phone] Encounter Details Date Type Department Care Team (Late st Contact Info) Description 08/19/2021 Transcribed Document [facility] Family Medicine [address] [place] [address] ProviderDelvin MD [address] [place] [address] [phone] Social History Tobacco Use Types Packs/Day Years Used Date Smoking Tobacco: Never Assessed Comments Unknown Sex and Gender Information Value Date Recorded Sex Assigned at Not on file Legal Sex Female 4:32 PM CDT Gender Identity Not on file Sexual Orientation Not on file documented as of this encounter Miscellaneous Notes * Cerner Conversion Note - Historical ProviderMD - 08/19/2021 8:30 AM CDT DATE OF PROCEDURE: 08/19/2021 SURGEON: Sandeep Holliday MD 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 PROCEDURE PERFORMED: Right IJ PowerPort placement. EDUCATION DEAN: Cherri Ya. ANESTHESIA: Local MAC. FINDINGS: An 8-Irish single lumen PowerPort was placed using a [...] and J-wire followed by passage of the 8-Irish single-lumen catheter. Once again, fluoroscopy was used [...] taken to the Recovery in stable condition. /[id number] Sandeep Holliday MD [facility]/TONYA / DOTTIE / DARIL /[id number] Electronically signed by Lanny [facility] Conversion Assistant Professor Of Sociology Cerner at 03/09/2023 8:44 PM CDT documented in this encounter Plan of Treatment Not on file documented as of this encounter Visit Diagnoses Not on filedocumented in this encounter Care Teams Dispatcher Automobile Rental Relationship Specialty Start Date End Date Reji Castro MD [address] [place] [address] PCP - General Adolescent Medicine 10/02/22 documented as of this encounter
--- OUTSIDE RECORDS SUMMARY | 2025-05-24 09:13 | XMS_ITS | Encounter Summary ---
Author Organization Healthcare Address [address] [place] [address] Care Team Providers Care Energy Analyst Name Role Phone Anna Marie Savage MD Primary Care Provider [phone] Reji Castro MD Primary Care Provider [phone] Encounter Details Date Type Department Care Team (Late st Contact Info) Description 07/09/2023 Orders Only External Location [address] [place] [address] Karen Benson MD [address] [place] [address] Social History Tobacco Use Types Packs/Day Years [...] documented as of this encounter Care Teams Energy Analyst Relationship Specialty Start Date End Date Anna Marie Savage MD [address] [place], [place] [phone] PCP - General 04/04/21 12/07/23 Reji Castro MD [address] [place] [address] [address] [place] [address] PCP - General Internal Medicine 12/08/23 documented as of this encounter
--- OUTSIDE RECORDS SUMMARY | 2025-05-24 09:14 | XMS_ITS | Encounter Summary ---
Author Organization [employer] ([place], [place], [place], [place]) Address [address] [place] [address] Care Team Providers Care Market Risk Manager Name Role Phone Reji Castro MD Primary Care Provider + [phone] Encounter Details Date Type Department Care Team (Late st Contact Info) Description 08/18/2021 Transcribed Document [facility] [place] Family Medicine [facility] [place] [address] ProviderDelvin MD [address] [place] [address] [phone] Social History Tobacco Use Types Packs/Day Years Used Date Smoking Tobacco: Never Assessed Comments Unknown Sex and Gender Information Value Date Recorded Sex Assigned at Not on file Legal Sex Female 4:32 PM CDT Gender Identity Not on file Sexual Orientation Not on file documented as of this encounter Miscellaneous Notes * [employer]ner Conversion Note - Historical ProviderMD - 08/18/2021 8:51 AM CDT Patient: [...] # 0.52 x10(3)/uL (Low) 08/18/2021 06:56 EDT [place] % 8.7 % 08/18/2021 06:56 EDT [place] # 0.61 K/uL 08/18/2021 06:56 EDT Eos [...] (High) 08/18/2021 06:56 EDT Electronically signed by [facility], [facility] Conversion License Inspector Cerner at 03/09/2023 9:00 PM CDT documented in this encounter Plan of Treatment Not on file documented as of this encounter Visit Diagnoses Not on filedocumented in this encounter Care Teams Market Risk Manager Relationship Specialty Start Date End Date Reji Castro MD [address] [place] [address] PCP - General Adolescent Medicine 10/02/22 documented as of this encounter
--- OUTSIDE RECORDS SUMMARY | 2025-05-24 09:14 | XMS_ITS | Encounter Summary ---
Author Organization [employer] ([place], [place], [place], [place]) Address [address] [place] [address] Care Team Providers Care Armor Reconnaissance Specialist Name Role Phone Reji Castro MD Primary Care Provider + [phone] Encounter Details Date Type Department Care Team (Late st Contact Info) Description 08/18/2021 Transcribed Document [facility] [place] Family Medicine [address] [place] [address] ProviderDelvin MD [address] [place] [phone] Social History Tobacco Use Types Packs/Day Years [...] Performed On: 08/18/2021 17:00 EDT by WILLIAMS HANEY RN Chart Check Powerplans Initiated/Discontinued as Appropriate : Yes All Active Orders Reviewed : Yes WILLIAMS HANEY RN - 08/18/2021 17:55 EDT Electronically signed by Stevie Ca Conversion Compensation And Benefits Analyst Cerner at 03/09/2023 8:40 PM CDT documented in this encounter Plan of Treatment Not on file documented as of this encounter Visit Diagnoses Not on filedocumented in this encounter Care Teams Armor Reconnaissance Specialist Relationship Specialty Start Date End Date Reji Castro MD [address] [place] [address] PCP - General Adolescent Medicine 10/02/22 documented as of this encounter
--- OUTSIDE RECORDS SUMMARY | 2025-05-24 09:14 | XMS_ITS | Encounter Summary ---
Author Organization [employer] ([place], [place], [place], [place]) Address [address] [place] [address] Care Team Providers Care Systems Navigator Name Role Phone Reji Castro MD Primary Care Provider + [phone] Encounter Details Date Type Department Care Team (Late st Contact Info) Description 08/24/2021 Transcribed Document [facility] [place] [facility] [place] [address] ProviderDelvin MD [address] [place] [address] [id number] Social History Tobacco Use Types Packs/Day Years Used Date Smoking Tobacco: Never Assessed Comments Unknown Sex and Gender Information Value Date Recorded Sex Assigned at Not on file Legal Sex Female 4:32 PM CDT Gender Identity Not on file Sexual Orientation Not on file documented as of this encounter Miscellaneous Notes * [employer]ner Conversion Note - Historical ProviderMD - 08/24/2021 2:00 AM CDT Office Machine Installer Details Entered On: 08/24/2021 0:53 EDT Performed On: 08/24/2021 2:00 EDT by Usha Adler, RN Order Details Transport Mode Order Detail : Wheelchair Isolation Precautions Order Detail : Standard Precautions Order Detail : 0 IV Order Detail : 1 Oxygen Order Detail : 0 Nurse Collect Order Detail : 0 Lift/Transfer : Independent Central Line Order Detail : Yes Room Service : Appropriate Arterial Line : No Patient Needs Meds Crushed/Liquid : No Usha Adler, RN - 08/24/2021 0:53 EDT documented in this encounter Plan of Treatment Not on file documented as of this encounter Visit Diagnoses Not on filedocumented in this encounter Care Teams Systems Navigator Relationship Specialty Start Date End Date Reji Castro MD [address] [place] [id number] PCP - General Adolescent Medicine 10/02/22 documented as of this encounter
--- OUTSIDE RECORDS SUMMARY | 2025-05-24 09:14 | XMS_ITS | Encounter Summary ---
Author Organization [employer] ([place], [place], [place], [place]) Address [address] [place] [address] Care Team Providers Care Preforms Laminator Name Role Phone Reji Castro MD Primary Care Provider + [phone] Encounter Details Date Type Department Care Team (Late st Contact Info) Description 08/23/2021 Transcribed Document [facility] [place] [facility] [place] [address] ProviderDelvin MD [address] [place] [address] [phone] Social History Tobacco Use Types Packs/Day Years Used Date Smoking Tobacco: Never Assessed Comments Unknown Sex and Gender Information Value Date Recorded Sex Assigned at Not on file Legal Sex Female 4:32 PM CDT Gender Identity Not on file Sexual Orientation Not on file documented as of this encounter Miscellaneous Notes * Cerner Conversion Note - Delvin ProviderMD - 08/23/2021 5:00 AM CDT Chart Check - Review Order Profile Entered On: 08/23/2021 5:20 EDT Performed On: 08/23/2021 5:00 EDT by Cecilia Lai Deal Architect-Student Nurse Chart Check Powerplans Initiated/Discontinued as Appropriate : Yes All Active Orders Reviewed : Yes Cecilia Lai Deal Architect-Student Nurse - 08/23/2021 5:19 EDT documented in this encounter Plan of Treatment Not on file documented as of this encounter Visit Diagnoses Not on filedocumented in this encounter Care Teams Preforms Laminator Relationship Specialty Start Date End Date Reji Castro MD [address] [place] [id number] PCP - General Adolescent Medicine 10/02/22 documented as of this encounter
--- OUTSIDE RECORDS SUMMARY | 2025-05-24 09:14 | XMS_ITS | Encounter Summary ---
Author Organization [employer] ([place], [place], [place], [place]) Address [address] [facility] [place] [address] Care Team Providers Care Vehicle Sales Professional Name Role Phone Reji Castro MD Primary Care Provider [phone] Encounter Details Date Type Department Care Team (Late st Contact Info) Description 10/02/2022 Outside Orders [facility] Central Scheduling [address] [place] [address] Marion Umana MD [address] [facility] [address] [place], [place] [id number] Stage 3 chronic kidney disease, unspecified whether [...] Primary documented in this encounter Care Teams Vehicle Sales Professional Relationship Specialty Start Date End Date Reji Castro MD [address] [place] [address] PCP - General Adolescent Medicine 10/02/22 documented as of this encounter
--- OUTSIDE RECORDS SUMMARY | 2025-05-24 09:14 | XMS_ITS | Encounter Summary ---
Author Organization [employer] ([place], [place], [place], [place]) Address [address] [place] [address] Care Team Providers Care Watch Dial Maker Name Role Phone Reji Castro MD Primary Care Provider + [phone] Encounter Details Date Type Department Care Team (Late st Contact Info) Description 08/27/2021 Transcribed Document [facility] [place] [facility] [place] [address] ProviderDelvin MD [address] [place] [address] [phone] Social History Tobacco Use Types Packs/Day Years Used Date Smoking Tobacco: Never Assessed Comments Unknown Sex and Gender Information Value Date Recorded Sex Assigned at Not on file Legal Sex Female 4:32 PM CDT Gender Identity Not on file Sexual Orientation Not on file documented as of this encounter Miscellaneous Notes * Cerner Conversion Note - Delvin ProviderMD - 08/27/2021 2:36 PM CDT Final Discharge Planning Entered On: 08/27/2021 14:45 EDT Performed On: 08/27/2021 14:36 EDT by SHAISTA WOLFF See Supervisor Final Discharge Planning Discharge Arrangements : Patient [...] Services (Related/SOC within 3 days)-06 SHAISTA WOLFF See Supervisor - 08/27/2021 14:36 EDT Final Narrative Note Final Narrative Note : Admission day 16, on room air to discharge home today, transport via s/o Jorge, who will assist with care. Home health for lab work and Port-a cath care via [facility] ([phone]/Radha Souza), IV Abx via [facility], they will deliver medication to patient's home this evening and patient was taught at bedside how to give herself the infusion, patient's follow up [facility] (via [facility] [phone]/cBrett) appt set for 09/03/2021 at 0900. All other appointments in place via Virtual RN. Pt, RN aware and in agreement with plan. SHAISTA WOLFF Social Worker - 08/27/2021 14:36 EDT Electronically signed by Lanny [facility] Conversion Motorized Squad Sergeant Cerner at 03/09/2023 8:58 PM CDT documented in this encounter Plan of Treatment Not on file documented as of this encounter Visit Diagnoses Not on filedocumented in this encounter Care Teams Watch Dial Maker Relationship Specialty Start Date End Date Reji Castro MD [address] [place] [id number] PCP - General Adolescent Medicine 10/02/22 documented as of this encounter
--- OUTSIDE RECORDS SUMMARY | 2025-05-24 09:14 | XMS_ITS | Encounter Summary ---
Author Organization [employer] ([place], [place], [place], [place]) Address [address] [place] [address] Care Team Providers Care Nursing Program Manager Name Role Phone Reji Castro MD Primary Care Provider + [phone] Encounter Details Date Type Department Care Team (Late st Contact Info) Description 08/13/2021 Transcribed Document [facility] [place] [address] [place] [address] ProviderDelvin MD [address] [place] [address] [phone] Social History Tobacco Use Types Packs/Day Years Used Date Smoking Tobacco: Never Assessed Comments Unknown Sex and Gender Information Value Date Recorded Sex Assigned at Not on file Legal Sex Female 4:32 PM CDT Gender Identity Not on file Sexual Orientation Not on file documented as of this encounter Miscellaneous Notes * Cerner Conversion Note - Delvin ProviderMD - 08/13/2021 9:56 AM CDT Consult Phone Call Documentation Entered On: 08/13/2021 10:10 EDT Performed On: 08/13/2021 9:56 EDT by Reina Tian, SECURITIES ANALYST Phone Call for Consults Consult Phone Call/Page Attempt : First call Consult Reason : paula cath infection, needing removal Physician Requested for Consult : Elieser VERNON MD-TATYANA Date and Time Call Returned : 08/14/2021 10:08 EDT Reina Tian, SECURITIES ANALYST - 08/13/2021 10:09 EDT Electronically signed by Loki Ca Conversion Assistant Golf Course Superintendent Cerner at 03/09/2023 8:50 PM CDT documented in this encounter Plan of Treatment Not on file documented as of this encounter Visit Diagnoses Not on filedocumented in this encounter Care Teams Nursing Program Manager Relationship Specialty Start Date End Date Reji Castro MD [address] [place] [id number] PCP - General Adolescent Medicine 10/02/22 documented as of this encounter
--- OUTSIDE RECORDS SUMMARY | 2025-05-24 09:14 | XMS_ITS | Encounter Summary ---
Author Organization [employer] ([place], [place], [place], [place]) Address [address] [place] [address] Care Team Providers Care Cra Officer Name Role Phone Reji Castro MD Primary Care Provider + [phone] Encounter Details Date Type Department Care Team (Late st Contact Info) Description 08/23/2021 Transcribed Document [facility] [place] [facility] [place] [address] ProviderDelvin MD [address] [place] [address] [phone] Social History Tobacco Use Types Packs/Day Years Used Date Smoking Tobacco: Never Assessed Comments Unknown Sex and Gender Information Value Date Recorded Sex Assigned at Not on file Legal Sex Female 4:32 PM CDT Gender Identity Not on file Sexual Orientation Not on file documented as of this encounter Miscellaneous Notes * Cerner Conversion Note - Historical ProviderMD - 08/23/2021 2:21 PM CDT Patient: IRINA [...] cefTRIAXone: 2 Gram, 100 mL/Hr, IV Piggyback, [id number]. citalopram: 40 mg, Oral, Daily. diphenhydrAMINE: 25 [...] 181 (AUG 23) 181 (AUG 22) 188 (SEP 30) 210 (SEP 29) Na 139 (AUG 02) 138 (AUG 22) 138 (AUG 21) 138 (AUG 20) K 3.8 (AUG 23) 3.7 (AUG 22) 3.8 (AUG 21) 3.9 (AUG 20) Cl L 101 (AUG 23) 102 (AUG 22) 103 (SEP 30) 103 (SEP ) CO2 H 34 (OCT 02) H 33 (OCT ) 31 (SEP 30) 29 (SEP 29) BUN 19 (AUG 02) 19 (AUG 22) 19 (JUL 30) 18 (AUG 20) Cr H 1.40 (AUG 02) H 1.40 (AUG 22) H 1.30 (JUL 30) H 1.40 (SEP ) Glu R H 118 (AUG 02) H 137 (AUG 22) H 129 (AUG [...] you, Noy Garrett, PharmD PGY-1 Resident Pager #[phone] Electronically signed by Lanny [facility] Conversion Electronic Plotting System Operator Cerner at 03/09/2023 8:59 PM CDT documented in this encounter Plan of Treatment Not on file documented as of this encounter Visit Diagnoses Not on filedocumented in this encounter Care Teams Cra Officer Relationship Specialty Start Date End Date Reji Castro MD [address] [place] [phone] PCP - General Adolescent Medicine 10/02/22 documented as of this encounter
--- OUTSIDE RECORDS SUMMARY | 2025-05-24 09:14 | XMS_ITS | Encounter Summary ---
Author Organization [employer] ([place], [place], [place], [place]) Address [address] [place] [address] Care Team Providers Care Business Enterprise Officer Name Role Phone Reji Castro MD Primary Care Provider [phone] Encounter Details Date Type Department Care Team (Late st Contact Info) Description 08/18/2021 Transcribed Document [facility] Radiology 1 [place] [address] Loren Solorzano MD [address] [place] [address] [place] [address] Social History Tobacco Use Types Packs/Day Years [...] Bioprosthetic mitral valve replacement / SNOMED CT 458879562 / Confirmed Chronic kidney disease / SNOMED CT 5514039448 / Confirmed COPD - Chronic obstructive pulmonary disease / SNOMED CT 160027982 / Confirmed History of obstructive sleep apnea / IMO 13894861 / Confirmed HLD - Hyperlipidemia / SNOMED CT 919406428 / Confirmed HTN - Hypertension / SNOMED CT 0738124969 / Confirmed Canceled: Atrial fibrillation / SNOMED CT 75422800, Active Problems (25) AIHA (autoimmune hemolytic anemia) [...] Last Charted Minimum Maximum Temp 98.1 (AUG 18 06:) 97.8 (AUG 17 18:12) 98.2 (AUG 17:) Apical HR 75 ([facility] 20:10) 75 ([facility] 20:10) 75 ([facility] 20:10) Mon HR 63 (AUG 18 06:) 63 (AUG 18 06:29) 84 ([facility] 18:12) Resp Rate 18 (AUG 18 06:) 16 (AUG 17 22:27) 18 (AUG 18 06:29) SBP 105 (AUG 18 06:29) 101 (AUG 17 22:27) 107 ([facility] 02:02) DBP L 53 (AUG 18 06:29) L 45 (AUG 17 18:12) 61 (AUG 17 22:27) MAP 77 (AUG 18 06:29) 70 ([facility] 18:12) 78 ([facility] 22:27) SpO2 95 (AUG 18 06:29) L [...] 207 (AUG 18) 195 (SEP ) 197 (SEP 24) 210 (AUG 14) Na L 134 (AUG 18) L 135 (AUG 17) 137 (SEP 25) 137 (SEP 24) K 4.6 (AUG 18) 4.4 (SEP ) 4.4 (SEP 25) 4.4 (SEP 24) Cl 105 (AUG 18) 104 (SEP ) 106 (JUL 25) 104 (SEP 24) CO2 28 (AUG 18) 27 (SEP ) 25 (SEP 25) 27 (SEP 24) BUN 18 (AUG 18) 18 (AUG 17) H 23 (SEP 25) H 28 (SEP 24) Cr H [...] mL/Hr, Infuse Over: 2 Hour(s) SIERRA MONTGOMERY MD-CHRISTINA Discontinued Medications: DAPTOmycin + Sodium Chloride 0.9% intravenous solution 50 mL 700 mg, IV Piggyback, Inj, [id number], infuse over 30 Minute(s), Routine, Start 08/14/21 21:00:00 EDT, 128 mL/Hr, Indication: Endocarditis LISA RICKETTS MD-INF ferrous gluconate 324 mg, Oral, Tab, Daily, Start 08/12/21 9:00:00 EDT SIERRA MONTGOMERY MD-NEP Impression and Plan # MSSA bacteremia cultures [...] Hold home meds SSI #Depression Celexa #Pain [place] 10 mg every 6 hours as needed [...] filedocumented in this encounter Care Teams Business Enterprise Officer Relationship Specialty Start Date End Date Reji Castro MD [address] [place] [address] PCP - General Adolescent Medicine 10/02/22 documented as of this encounter
--- OUTSIDE RECORDS SUMMARY | 2025-05-24 09:14 | XMS_ITS | Encounter Summary ---
Author Organization [employer] ([place], [place], [place], [place]) Address [address] [place] [address] Care Team Providers Care Plumbing Assembler Installer Name Role Phone Reji Castro MD Primary Care Provider + [phone] Encounter Details Date Type Department Care Team (Late st Contact Info) Description 08/13/2021 Transcribed Document [facility] [place] [facility] [place] [address] ProviderDelvin MD [address] [place] [address] [phone] Social History Tobacco Use Types Packs/Day Years [...] Author: CHELI BEASLEY MD-CAR Basic Information Primary Disability Representative: Dr. Delmar Geronimo Licensed Mortician: MD Nestor Subjective NAD Health Status Current [...] mL 700 mg 14 mL, IV Piggyback, [id number] DAPTOmycin + NaCl 0.9% 50 mL 700 mg 14 mL, IV Piggyback, [id number] famotidine 20 mg tab 20 mg 1 [...] Temp 97.8 (AUG 13 03:00) 97.8 (AUG 13 03:00) 98 (AUG 12 23:00) Mon HR 77 (AUG 13 03:00) 50 (AUG 12 15:00) 82 (AUG 12 23:00) Resp Rate 18 (AUG 13 03:00) 18 (AUG 12 14:30) 20 (AUG 12 [...] of motion, Normal strength. Integumentary: Warm, Dry, [place]. Neurologic: Alert, Oriented. Psychiatric: Cooperative, Appropriate mood & affect. Results Review AUG 13 05:19 136 103 H 50 / 102 4.5 30 H 1.60 \ AUG 13 05:19 \ L 8.5 / 5.5 197 / L 28.7 \ Cardiac Markers (Current Encounter/Past 24 Hours) CK 87 Units/Liter 08/13/2021 05:53 ProBNP 587 pg/mL HI 08/13/2021 05:58 Radiology Results (Last 48 hours) [id number] -- 08/11/2021 21:21 CR Chest 1 Vw [...] mechan MV, 4+ TR, no vegetation. Admitted [facility] 07/12, Negative CHUCHO, TTE for vegetation [...] mechanical causes of hemolysis. Obtain records from [facility]. Check haptoglobin, LDH, reticulocyte count. Continue other current CV meds. documented in this encounter Plan of Treatment Not on file documented as of this encounter Visit Diagnoses Not on filedocumented in this encounter Care Teams Plumbing Assembler Installer Relationship Specialty Start Date End Date Reji Castro MD [address] [place] [id number] PCP - General Adolescent Medicine 10/02/22 documented as of this encounter
--- OUTSIDE RECORDS SUMMARY | 2025-05-24 09:14 | XMS_ITS | Encounter Summary ---
Author Organization [employer] ([place], [place], [place], [place]) Address [address] [place] [address] Care Team Providers Care Java Golden Gate Developer Name Role Phone Reji Castro MD Primary Care Provider + [phone] Encounter Details Date Type Department Care Team (Late st Contact Info) Description 08/18/2021 Transcribed Document [facility] [place] [address] ProviderDelvin MD [address] [place] [id number] Social History Tobacco Use Types Packs/Day Years [...] History of obstructive sleep apnea / IMO 20218758 / Confirmed Bioprosthetic mitral valve replacement / SNOMED CT 388192044 / Confirmed Chronic kidney disease / SNOMED CT 2754165361 / Confirmed COPD - Chronic obstructive pulmonary disease / SNOMED CT 550095133 / Confirmed HTN - Hypertension / SNOMED CT 6661771273 / Confirmed HLD - Hyperlipidemia / SNOMED CT 519505035 / Confirmed Amblyopia / SNOMED CT 7580588857 / Confirmed 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 / SNOMED CT 676379514 / Confirmed Myocardial infarction / SNOMED CT 52966880 / Confirmed Atrial fibrillation / SNOMED CT 40480975 / Confirmed GERD - Gastro-esophageal reflux disease / SNOMED CT 8466524160 / Confirmed Diverticulosis / SNOMED CT 9130199342 / Confirmed Hepatomegaly / SNOMED CT 079772111 / Confirmed Renal calculus / SNOMED CT 820142368 / Confirmed Ovarian cyst / SNOMED CT 888967457 / Confirmed Arthritis / SNOMED CT 4005720 / Confirmed Back pain / PNED [id number] / Confirmed Fibromyalgia / SNOMED CT 60692822 / Confirmed Restless legs syndrome / SNOMED CT 06647326 / Confirmed Diabetes mellitus type II / SNOMED CT 01827509 / Confirmed Thyroid disease / SNOMED CT 803010999 / Confirmed Edema / SNOMED CT 815552265 / Confirmed BLE neuropathy hands and feet / Confirmed frequent headache / Confirmed AIHA (autoimmune hemolytic anemia) / SNOMED CT 2063716347 / Confirmed, Active Problems (25) AIHA (autoimmune [...] Charted Minimum Maximum Temp 98.1 (AUG 18 06:29) 97.8 (AUG 17 18:12) 98.2 (AUG 17 22:27) Apical HR 75 (AUG 17 20:10) 75 (AUG 17 20:10) 75 (AUG 17 20:10) Mon HR 63 (AUG 18 06:29) 63 (AUG 18 06:29) 84 (AUG 17 18:12) Resp Rate 18 (AUG 18 06:) 16 (AUG 17 22:27) 18 (AUG 18 06:29) SBP 105 (AUG 18 06:29) 101 (AUG 17 22:) 107 (AUG 18 [...] 25.9 (JUL 25) L 26.7 (SEP 24) Plt 207 (AUG 18) 195 (SEP ) 197 (SEP 24) 210 (JUL 23) Na L 134 (AUG 18) L 135 (AUG 17) 137 (JUL 25) 137 (JUL 24) K 4.6 (AUG 18) 4.4 (AUG 17) 4.4 (JUL 25) 4.4 (JUL 24) Cl 105 (AUG 18) 104 (SEP ) 106 (JUL 25) 104 (JUL 24) CO2 28 (AUG 18) [...] filedocumented in this encounter Care Teams Java Golden Gate Developer Relationship Specialty Start Date End Date Reji Castro MD [address] [place] [id number] PCP - General Adolescent Medicine 10/02/22 documented as of this encounter
--- OUTSIDE RECORDS SUMMARY | 2025-05-24 09:14 | XMS_ITS | Encounter Summary ---
Author Organization [employer] ([place], [place], [place], [place]) Address [address] [place] [address] Care Team Providers Care Nitro Worker Name Role Phone Reji Castro MD Primary Care Provider + [phone] Encounter Details Date Type Department Care Team (Late st Contact Info) Description 08/27/2021 Transcribed Document [facility] [place] [facility] [place] [address] ProviderDelvin MD [address] [place] [address] [phone] Social History Tobacco Use Types Packs/Day Years [...] cefTRIAXone: 2 Gram, 100 mL/Hr, IV Piggyback, [id number] diphenhydrAMINE: 25 mg, Oral, Q6H, PRN: Itching [...] 2 g injection: 2 Gram, IV Piggyback, S97CWon, 0 Refill(s) cefdinir 300 mg oral capsule: [...] Oral, BID cefTRIAXone 2 Gram, IV Piggyback, [id number] citalopram 20 mg tab 40 mg 2 [...] Bioprosthetic mitral valve replacement / SNOMED CT 079251004 / Confirmed Chronic kidney disease / SNOMED CT 0715934947 / Confirmed COPD - Chronic obstructive pulmonary disease / SNOMED CT 391486918 / Confirmed History of obstructive sleep apnea / IMO 87499185 / Confirmed HLD - Hyperlipidemia / SNOMED CT 501392220 / Confirmed HTN - Hypertension / SNOMED CT 9196695090 / Confirmed Canceled: Atrial fibrillation / SNOMED CT 36197783, Active Problems (25) AIHA (autoimmune hemolytic anemia) [...] values) WBC 5.3 (AUG 27) 4.5 (AUG 26) 5.4 (AUG 25) 5.6 (AUG 24) HB L 8.8 (AUG 27) L 8.4 (AUG 05) L 7.7 (AUG 25) L 7.8 (AUG 03) HCT L 29.6 (AUG 06) L 29.0 (AUG 05) L 26.5 (AUG 04) L 26.6 (AUG 03) Plt 176 (OCT 06) L 152 (OCT 05) 180 (AUG 04) 194 (AUG 03) Na 137 (AUG 06) 138 (AUG 05) 140 (AUG 04) [...] H 1.40 (AUG 25) H 1.40 (AUG 03) Glu R H 140 (AUG 06) 103 (AUG 05) 91 (AUG 04) H 120 (AUG 03) Ca 9.5 (AUG 06) 9.4 (AUG 05) 9.7 (AUG 25) 9.4 (AUG 03) Lactic .93 (AUG 12) L .73 (AUG 11) PT H 26.0 (AUG 06) H 22.4 (AUG 05) H 19.3 (OCT 04) H 18.8 (AUG 03) INR H 2.6 (AUG 06) H [...] on filedocumented in this encounter Care Teams Nitro Worker Relationship Specialty Start Date End Date Reji Castro MD [address] [place] [id number] PCP - General Adolescent Medicine 10/02/22 documented as of this encounter
--- OUTSIDE RECORDS SUMMARY | 2025-05-24 09:14 | XMS_ITS | Encounter Summary ---
Author Organization [employer] ([place], [place], [place], [place]) Address [address] [place] [address] Care Team Providers Care Rn Womens Health Name Role Phone Reji Castro MD Primary Care Provider + [phone] Encounter Details Date Type Department Care Team (Late st Contact Info) Description 08/13/2021 Transcribed Document [facility] [place] [facility] [place] [address] ProviderDelvin MD [address] [place] [address] [id number] Social History Tobacco Use Types Packs/Day Years Used Date Smoking Tobacco: Never Assessed Comments Unknown Sex and Gender Information Value Date Recorded Sex Assigned at Not on file Legal Sex Female 4:32 PM CDT Gender Identity Not on file Sexual Orientation Not on file documented as of this encounter Miscellaneous Notes * Cerner Conversion Note - Delvin ProviderMD - 08/13/2021 10:57 AM CDT Patient: IRINA TAMAYO Age: 56 Years Sex: Female : 1965 Chief Complaint Pt presents to the ER reporting she was called for positive blood clutures which showed staph. Pt reports her port is infected. Currently on Omnicef. Pt has a mechanical valve. Has had 180 units of blood due to anemia, [facility]. Reason [...] these transfusions about 3 years ago at [facility]. Last month she developed fever, headache, nausea, and was admitted to [facility]. CHUCHO/TTE at that time showed possible bacteria on the tip of her port. She was treated with PO antibiotics with resolution of symptoms and was discharged home with no plans for port removal. She reports a few days ago she again had headache and nausea, this time without fever. She presented to the emergency department at [facility] with blood cultures drawn which were supposedly positive for staph epi. She was subsequently told to come to [facility] ED for ID consultation. Review of Systems [...] fibrillation 5. Diabetes mellitus type II 6. group home current use of anticoagulant At risk [...] Information Primary Care Physician - DEREK ROBISON DR Attending Physician - FAIZA YOUSSEF DO Admitting [...] Diagnostic Results Radiology Results (Last 48 hours) [id number] -- 08/11/2021 21:21 CR Chest 1 Vw [...] 08/13/2021 06:13 Blood Urea Nitrogen 50 mg/dL [place] 08/13/2021 06:13 Glucose Level 102 mg/dL 08/13/2021 06:13 Albumin Level 3.9 Gram/dL 08/13/2021 06:13 Bilirubin Total 0.5 mg/dL 08/13/2021 06:13 Calcium Level 9.1 mg/dL 08/13/2021 06:13 Electronically signed by [facility] Conversion Fermentation Scientist Cerner at 03/09/2023 8:43 PM CDT documented in this encounter Plan of Treatment Not on file documented as of this encounter Visit Diagnoses Not on filedocumented in this encounter Care Teams Rn Womens Health Relationship Specialty Start Date End Date Reji Castro MD [address] [place] [id number] PCP - General Adolescent Medicine 10/02/22 documented as of this encounter
--- OUTSIDE RECORDS SUMMARY | 2025-05-24 09:14 | XMS_ITS | Encounter Summary ---
Author Organization [employer] ([place], [place], [place], [place]) Address [address] [place] [address] Care Team Providers Care Pattern Keeper Name Role Phone Reji Tovar MD Primary Care Provider + [phone] Encounter Details Date Type Department Care Team (Late st Contact Info) Description 08/27/2021 Transcribed Document [facility] [place] Family Medicine [address] [place] [address] ProviderDelvin MD [address] [place] [address] Social History Tobacco Use Types Packs/Day [...] Celestin MD - 08/27/2021 1:31 PM CDT [place] [address] IRINA TAMAYO :1965 Visit Time:08/11/2021 Your Visit Summary Your Care Team Admitting Physician - VINCE BELLO MD Attending Physician - FAIZA YOUSSEF DO-INT Primary Care Physician - DEREK ROBISON DR Referring Physician - VINCE BELLO MD Your Diagnosis Bacteremia Acute kidney injury superimposed on chronic kidney disease, Acute kidney injury CHF with unknown LVEF Atrial fibrillation Diabetes mellitus type II 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 Sawyer's office directly. Where: [address] [facility] [address] [place] [address]- Follow Up with LISA RICKETTS When 09/03/2021 10:45 AM EDT Comments Hospital follow up appointment has been made. Please arrive 15 minutes early to the appointment. If you need to reschedule, please contact [place] directly. Where: [address] [facility] [address] [place] [address]- Business (1) Follow Up with NENA PEARSON [facility] When Within 1 week Comments The [facility] will contact you with appointment date and time. Where: [address] [facility] [address] [place] [address] Follow Up with REJI TOVAR (REFMD [facility] When Within 5 to 7 days Comments The [facility] will contact you with appointment date and time. Where: [address] [place] [address]- Follow Up with JERRELL GONZALEZ When Within 2 weeks Comments The [facility] will contact you with appointment date and time. Where: Warfarin Instructions Indication for Warfarin Anticoagulation: Atrial fibrillation Indication for Warfarin Anticoagulation: Atrial fibrillation Warfarin Anticoagulation Disposition: Continuation of pre-hospital treatment Warfarin Anticoagulation Disposition: Continuation of pre-hospital treatment Duration Warfarin Therapy, Residential: Yes Target INR: 2.5 - 3.5 Physician [...] Dose REDUCTION to 25mg daily Pickup at [facility] spironolactone (spironolactone 25 mg oral tablet) 1 Tablet(s) Oral Every Day Please note: Dose REDUCTION to 1 tablet daily warfarin (Coumadin 4 mg oral tablet) 2 Tablet(s) Oral Every Day Please note: Dose INCREASE Pickup at [facility] acetaminophen-oxyCODONE (Percocet 10/ 325 oral [...] Drop(s) Eyes Both Every Day Pharmacy Information [facility]: [address] [place] [address] [phone] Take your medications faithfully. Do NOT skip [...] these instructions at home: Medicines ??? Take ugkw-nrt-fuwznhs and prescription medicines only as told by [...] and water are not available, use hand production welding supervisor. ??? You should wash your hands: [...] care provider. ??? Practice good oral hygiene. [place] your teeth two times a day, and [...] provider. Document Revised: 03/29/2020 Document Reviewed: 03/29/2020 [employer] Patient Education ?? 2020 Okta. Warfarin Coagulopathy Warfarin coagulopathy refers to bleeding [...] stopping any new medicines. Many prescription and jlbr-bwj-cirfaad medicines can interfere with warfarin. This includes lcel-wzy-tdfsrjy vitamins, dietary supplements, herbal medicines, and pain [...] you work with a diet and nutrition services aide (dietitian). ??? Vitamin K makes warfarin less [...] Preventing bleeding and injury ??? Some common erlm-gdf-jxqsqdw medicines and supplements may increase the risk [...] diet. ??? You start or stop any doff-ble-czwljgr medicine, prescription medicine, or dietary supplement. ??? [...] Reviewed: 01/26/2018 Elsevier Patient Education ?? 2020 [employer] Vitamin K Foods and Warfarin Warfarin [...] making changes. ??? Work with a nutrition services aide (dietitian) to develop a meal plan that works best for you. What foods are high in vitamin K? Foods that are high in vitamin K contain more than 100 mcg (micrograms) per serving. These include: ??? Broccoli (cooked from fresh) ? cup (78 g) has 110 mcg. ??? Kirkman sprouts (cooked from fresh) ? cup (78 [...] cup (90 g) has 444 mcg. ??? Palestinian chard (cooked from fresh) ? cup (88 [...] cup (54 g) has 8 mcg. ??? Panna Maria with peel (raw) ? cup (52 g) has 9 mcg. ??? Grapes ? cup (76 g) has 12 mcg. ??? Denzel ??? 1 medium (207 g) has 9 [...] Reviewed: 08/27/2020 Elsevier Patient Education ?? 2020 [employer] Inc. Implanted Port Home Guide An implanted [...] implanted port has two main parts: ??? [place]. The reservoir is the part where a [...] water are not available, use alcohol-based hand production welding supervisor. ? Change your dressing as told [...] provider. Document Revised: 03/01/2020 Document Reviewed: 12/11/2017 [employer] Patient Education ?? 2020 Okta. Acute Kidney Injury, Adult Acute kidney injury [...] these instructions at home: Medicines ??? Take tvuv-grx-wrhzraa and prescription medicines only as told by [...] important. Where to find more information ??? [place] Association of Kidney Patients: www.aakp.org ??? National Kidney Foundation: www.kidney.org ??? [place] Kidney Fund: www.akfinc.org ??? [employer] Rehabilitation [...] provider. Document Revised: 09/17/2020 Document Reviewed: 09/17/2020 [employer] Patient Education ?? 2020 Okta. Chronic Kidney Disease, Adult Chronic kidney disease [...] these instructions at home: Medicines ??? Take xvtz-ypj-rqtjmoe and prescription medicines only as told by [...] provider. Document Revised: 10/21/2018 Document Reviewed: 12/13/2017 ElseWe[employer]ann Patient Education ?? 2020 Elsevier Inc. Implanted Port Home Guide An implanted [...] implanted port has two main parts: ??? [place]. The reservoir is the part where a [...] water are not available, use alcohol-based hand production welding supervisor. ? Change your dressing as told [...] provider. Document Revised: 03/01/2020 Document Reviewed: 12/11/2017 [employer] Patient Education ?? 2020 Okta. Atrial Fibrillation Atrial fibrillation is a type [...] signals of the heart. ??? An ambulatory popped corn oven attendant to record your heart's activity for a [...] provider. Document Revised: 05/01/2020 Document Reviewed: 05/01/2020 [employer] Patient Education ?? 2020 [employer] Aspirin and Your Heart Aspirin is [...] filedocumented in this encounter Care Teams Pattern Keeper Relationship Specialty Start Date End Date Reji Tovar MD [address] [place] [id number] PCP - General Adolescent Medicine 10/02/22 documented as of this encounter
--- OUTSIDE RECORDS SUMMARY | 2025-05-24 09:14 | XMS_ITS | Clinical Summary ---
Author Organization [facility] Address [address] [place] [address] Care Team Providers Care Territory Manager Name Role Phone Reji Castro MD [...] (one) time each day. Active Continuous Glucose Hogshead Weigher (FreeStyle Gerson 14 Day [place]) device use as directed 4 Active Continuous [...] Encounters Date Type Department Care Team Description 05/23/2025 Community Orders Community Practice [address] [place] [address] Reji Castro MD Stage 3b chronic kidney disease (CMS/HCC) (Primary Dx) 05/18/2025 Telephone [facility] [place] [address] [facility] [address] [place] [address] Alysha Maloney 05/17/2025 Telephone [facility] [place] [address] [facility] 1[address] [place] [address] Alysha Maloney 05/07/2025 Orders Only External Location [address] [place] [address] Provider, External 05/07/2025 Orders Only External Location [address] [place] [address] Provider, External from Last 3 Months Immunizations [...] money to buy more. Never true 11/19/20 Within the past 12 months, t he [...] Health Maintenance Due Date Last Done Comments [facility]-Medicare Annual Wellness (AWV) 1965 [facility]-Infant/Child/Adol SDOH Screenings 1965 Diabetes: Dental Exam 1973 [facility]- SDOH Screenings 1981 [facility]-Adult SDOH Screenings 1981 [facility]-Hepatitis A Vaccines (1 of 2 - Risk 2-dose series) 1982 [facility]-Pap Smear 1984 [facility]-Cervical Cancer Screening 1993 [facility]-HPV/Cotest 1993 [facility]-Breast Cancer Screening 2013 [facility]-Zoster Vaccines (1 of 2) 2013 [id number] Vaccine (3 - Moderna risk series) 03/24/2021 02/24/2021, 01/27/2021 [facility]-Diabetes: Hemoglobin A1C 02/19/2024 11/20/2023 [facility]-Depression Screening 12/07/2024 12/07/2023 [facility]-Influenza Vaccine (#1) 07/23/202508/16, 08/19/2022, 07/24/2021, Additional history exists [facility]-DTaP,Tdap,and Td Vaccines (3 - Td or Tdap) 12/15/2034 12/15/2024, 04/03/2023 [facility]-HIB Vaccines Aged Out 12/30/2018 No longer e ligible based on patient's age to complete this topic [facility]-Pneumococcal Vaccine: 50+ Years Completed 09/28/2023, 03/03/2019, 12/30/2018 [facility]-RSV Vaccine: 60+ Years or Completed 09/28/2023 [facility]-HIV Screening Completed 12/15/2024 [facility]-Hepatitis C Screening [...] Radiographic Silvia ging 05/07/2025 1:37 PM EDT External Provider IMG XR PROCEDURES Final Result * ED HIV 1/2 Antibody/Antigen Screen w/Reflex to HIV 1/2 Differentiation (12/15/2024 8:10 PM EST) HIV 1 & 2 Antibody/Antigen Screen Non Reactive Non Reactive 12/15/2024 9:33 PM EST [facility] Comment:Screening for HIV 1 & 2 antibodies, and P24 antigen is NONREACTIVE. No confirmatory testing is required. Blood Venous blood specimen / Unknown Venipuncture / Unknown 12/15/2024 8:10 PM EST 12/15/2024 8:52 PM EST Elijah Negron MD LAB BLOOD ORDERABLES Final Result [facility] [address] [place] [address] * Hepatitis C Antibody - ED (12/15/2024 8:10 PM EST) Hepatitis C Antibody Negative Negative 12/15/2024 9:33 PM EST [facility] Blood Venous blood specimen / Unknown Venipuncture / Unknown 12/15/2024 8:10 PM EST 12/15/2024 8:52 PM EST us Elijah Negron MD LAB BLOOD ORDERABLES Final Result Performing Organization Address [facility] Co de Phone Number [facility] [address] [place] [address] * (ABNORMAL) Hemoglobin A1c (11/20/2023 2:15 AM EST) Hemoglobin A1c 7.1(H) <5.7 % 11/20/2023 4:00 AM EST [facility] Blood Venous blood specimen / Unknown Venipuncture / Unknown 11/20/2023 2:15 AM EST 11/20/2023 2:22 AM EST Narrative [facility] - 11/20/2023 4:00 AM EST HA1C Interpretive Data: Diagnosis of Diabetes: Diabetic > or = 6.5% Pre-diabetic 5.7 to 6.4% Non-diabetic < or = 5.6% Glycemic Targets for Type I and Type II Diabetics: Non- Adults <7.0% Adults <6.0% Children and Adolescents <7.5% Source: [place] Diabetes Association. Standards of medical care in diabetes,2017. Diabetes Care.2017:40 (suppl 1):S1-S135. HbA1c assay performed by an ion-exchange chromatography method that is certified traceable to the DCCT. us Alannah Conti APRN LAB BLOOD ORDERABLES Final Re sult Performing Organization Address City/[facility]/ZIP Co de Phone Number [facility] [address] [place] [address] from Last 3 Months or Most Recently Relevant to Health Maintenance Insurance [facility] MEDICARE Advance Directives * Full Code (Latest Code Status on File) Date Activated Date Inactivated Comments 11/18/2023 5:56 PM 11/24/2023 4:04 PM Question Answer Comments Patient has decision-making capacity? Yes Care Teams Territory Manager Relationship Specialty Start Date End Date Reji Castro MD [address] [place] [id number] PCP - General Internal Medicine 12/08/23
--- OUTSIDE RECORDS SUMMARY | 2025-05-24 09:14 | XMS_ITS | Clinical Summary ---
Author Organization [employer] ([place], [place], [place], [place]) Address [address] [place] [address] Care Team Providers Care Public Relations Director Name Role Phone Reji Castro MD Primary Care Provider Allergies Active Allergy Reactions Criticality Noted Date Comments Buprenorphine 10/05/2022 Codeine 10/05/2022 Iodinated Contrast Media 10/05/2022 Prednisone 10/05/2022 Rosuvastatin 10/05/2022 Theophylline 10/05/2022 Social History Tobacco Use Types Packs/Day Years Used Date Smoking Tobacco: Never Assessed Food Insecurity Answer Date Recorded Food run [...] Date Yash rded Speak language other than Libyan at home Not on file 12/10/2023 Want help with school or training Not on file 12/10/2023 Substance Use Answer Date Recorded Used [...] (1 - 1-dose 75+ series) 2038 Insurance [facility] COMMERCIAL Advance Directives For more information, please contact: [phone] Documents on File Type Date Recorded Patient Labor Relations Consultant Expl anation Advance Directives and Livin g Will 10/05/2022 8:36 AM Care Teams Public Relations Director Relationship Specialty Start Date End Date Reji Castro MD [address] [place] [address] PCP - General Adolescent Medicine 10/02/22
--- OUTSIDE RECORDS SUMMARY | 2025-05-24 09:14 | XMS_ITS | Encounter Summary ---
Author Organization [facility] Address [address] [place] [address] Care Team Providers Care Machine Plug Shaper Name Role Phone Anna Marie Savage MD Primary Care Provider [phone] Reji Castro MD Primary Care Provider [phone] Encounter Details Date Type Department Care Team (Late st Contact Info) Description 10/05/2022 Orders Only External Location [address] [place] [address] Provider, External Social History Tobacco Use Types [...] filedocumented in this encounter Care Teams Machine Plug Shaper Relationship Specialty Start Date End Date Anna Marie Savage MD [address] [place] [address] [phone] PCP - General 04/04/21 12/07/23 Reji Castro MD [address] [facility] [address] [place] [address] PCP - General Internal Medicine 12/08/23 documented as of this encounter
--- OUTSIDE RECORDS SUMMARY | 2025-05-24 09:14 | XMS_ITS | Encounter Summary ---
Author Organization [employer] ([place], [place], [place], [place]) Address [address] [place] [address] Care Team Providers Care Pharmacy Coordinator Name Role Phone Reji Tovar MD Primary Care Provider + [phone] Encounter Details Date Type Department Care Team (Late st Contact Info) Description 08/27/2021 Transcribed Document [facility] [place] Family Medicine [place] [address] ProviderDelvin MD [address] [place] [address] [id number] Social History Tobacco Use Types Packs/Day Years Used Date Smoking Tobacco: Never Assessed Comments Unknown Sex and Gender Information Value Date Recorded Sex Assigned at Not on file Legal Sex Female 4:32 PM CDT Gender Identity Not on file Sexual Orientation Not on file documented as of this encounter Miscellaneous Notes * Cerner Conversion Note - Delvin ProviderMD - 08/27/2021 10:05 AM CDT Patient: IRINA [...] take to pcp f/u Depression Celexa Pain Morris 10 mg every 6 hours as needed Procedures SN - Proc - Procedure: Vascular Access Insertion (08/19/21 08:00:32)ATE OF PROCEDURE: 08/19/2021 SURGEON: Nena Holliday MD 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 PROCEDURE PERFORMED: Right IJ PowerPort placement. COMPLEX MANAGER: Cherri Ya. ANESTHESIA: Local MAC. FINDINGS: An 8-Macanese single lumen PowerPort was placed using a [...] and J-wire followed by passage of the 8-Macanese single-lumen catheter. Once again, fluoroscopy was used [...] taken to the Recovery in stable condition. /[id number] Nena Holliday MD JMH/AQ [1] Operative Report [...] back to her room in stable condition. /[id number] MD GERMAINE Pollard/AQ / DOTTIE / MODL /[id number] Signature Line Electronically Signed on 08/14/2021 11:35 [...] past, CAD, mitral valve replacement presents to [facility] emergency department in [place] after being [...] what doses. She was seen by our bilingual account manager with no new findings, rec to f/u with her usual bilingual account manager. Vital Signs T: 36.4 ??C TMIN: 36.4 [...] Infusion Discharge Follow Up REJI TOVAR (REFMD [facility] - Within 5 to 7 days LISA [...] 2 g injection 2 Gram, IV Piggyback, [id number] Celexa 40 mg oral tablet 40 mg [...] MD (? martínez on ckd) Elieser VERNON MD-TATYANA TANG, FITO CLIFTON MD-SIERRA MONTIEL MD-FUNMI NICOLAS MD-ANS GLEN, MD MAURA Current Diet Order Diet, Adult - Ordered -- Start: 08/19/21 9:34:00 EDT, 60 gm carbs:[id number] kori, Isolation: Standard Precautions, Instructions: Diabetic Diet Follow Up Labs/Studies Blood Gases (Current Encounter/Past 24 Hours) No Blood Gas Results Found (Past 24 Hours) Electrolytes(BMP) Results (Current Encounter/Past 24 Hours) Sodium Level 137 mmol/L 08/27/2021 05:09 Potassium Level 4.0 mmol/L 08/27/2021 05:09 Chloride Level 97 mmol/L LOW 08/27/2021 05:09 Carbon Dioxide Level 36 mmol/L NE 08/27/2021 05:09 Anion Gap 8 LOW 08/27/2021 05:09 Blood Urea Nitrogen 22 mg/dL 08/27/2021 05:09 Glucose Level 140 mg/dL NE 08/27/2021 05:09 Calcium Level 9.5 mg/dL 08/27/2021 05:09 Creatinine Level 1.40 mg/dL NE 08/27/2021 05:09 Cardiac Markers (Current Encounter/Past 24 [...] LOW 08/27/2021 05:09 Creatinine Level 1.40 mg/dL NE 08/27/2021 05:09 eGFR 47 mL/min/1.73m2 LOW 08/27/2021 05:09 Sodium Level 137 mmol/L 08/27/2021 05:09 Potassium Level 4.0 mmol/L 08/27/2021 05:09 Chloride Level 97 mmol/L LOW 08/27/2021 05:09 Carbon Dioxide Level 36 mmol/L NE 08/27/2021 05:09 Anion Gap 8 LOW 08/27/2021 05:09 Blood Urea Nitrogen 22 mg/dL 08/27/2021 05:09 Glucose Level 140 mg/dL NE 08/27/2021 05:09 Calcium Level 9.5 mg/dL 08/27/2021 05:09 Coagulation Results (Current Encounter/Past 24 Hours) PT 26.0 Second(s) NE 08/27/2021 05:04 INR 2.6 NE 08/27/2021 05:04 Creatinine Clearance (Current Encounter/Past 24 Hours) Creatinine Level 1.40 mg/dL NE 08/27/2021 08:46 Bun/Creatinine 15.7 08/27/2021 05:09 Estimated [...] 08/11/2021 20:36 EDT Electronically signed by Lanny [facility] Conversion Sales Service Promoter Cerner at 03/09/2023 8:54 PM CDT documented in this encounter Plan of Treatment Not on file documented as of this encounter Visit Diagnoses Not on filedocumented in this encounter Care Teams Pharmacy Coordinator Relationship Specialty Start Date End Date Reji Tovar MD [address] [place] [id number] PCP - General Adolescent Medicine 10/02/22 documented as of this encounter
--- OUTSIDE RECORDS SUMMARY | 2025-05-24 09:14 | XMS_ITS | Encounter Summary ---
Author Organization [employer] ([place], [place], [place], [place]) Address [address] [place] [address] Care Team Providers Care Food Safety Director Name Role Phone Reji Castro MD Primary Care Provider [phone] Encounter Details Date Type Department Care Team (Late st Contact Info) Description 08/22/2021 Transcribed Document [facility] [address] [place] [address] Loren Solorzano MD [address] [place] [address] [place] [address] Social History Tobacco Use Types Packs/Day Years [...] cefTRIAXone: 2 Gram, 100 mL/Hr, IV Piggyback, [id number] diphenhydrAMINE: 25 mg, Oral, Q6H, PRN: Itching [...] Oral, BID cefTRIAXone 2 Gram, IV Piggyback, [id number] citalopram 20 mg tab 40 mg 2 [...] Bioprosthetic mitral valve replacement / SNOMED CT 871621529 / Confirmed Chronic kidney disease / SNOMED CT 6527844934 / Confirmed COPD - Chronic obstructive pulmonary disease / SNOMED CT 832819352 / Confirmed History of obstructive sleep apnea / IMO 03188248 / Confirmed HLD - Hyperlipidemia / SNOMED CT 130558419 / Confirmed HTN - Hypertension / SNOMED CT 1818255211 / Confirmed Canceled: Atrial fibrillation / SNOMED CT 10086234, Active Problems (25) AIHA (autoimmune hemolytic anemia) [...] Charted Minimum Maximum Temp 98 (AUG 22 03:) 97.6 (AUG 21 23:30) 98.2 (AUG 21 [...] 22) L 25.2 (SEP 30) L 25.9 (AUG 20) L 25.3 (AUG 19) Plt 181 (AUG 22) 188 (SEP 30) 210 (SEP 29) 207 (SEP ) Na 138 (AUG 22) 138 (SEP 30) 138 (SEP 29) 137 (SEP ) K 3.7 (AUG 22) 3.8 (SEP 30) 3.9 (SEP 29) 4.3 (AUG 19) Cl 102 (AUG 22) 103 (SEP 30) 103 (SEP 29) 105 (SEP ) CO2 H 33 (AUG 22) 31 (SEP 30) 29 (SEP 29) 28 (SEP 28) BUN 19 (AUG 22) 19 (SEP 30) 18 (SEP 29) 16 (SEP ) Cr H 1.40 (AUG 22) H 1.30 (SEP 30) H 1.40 (SEP 29) H 1.60 (SEP ) Glu R H 137 (AUG 22) H 129 (SEP 30) H 125 (SEP 29) H 191 (AUG 19) Ca 8.9 (AUG 22) 8.6 (SEP 30) 9.1 (SEP 29) 9.2 (AUG 19) Lactic .93 (AUG 12) [...] Hold home meds SSI #Depression Celexa #Pain [place] 10 mg every 6 hours as needed CODE STATUS. Full code Dispo: Given patient with history of multiple transfusion we will keep patient in the hospital on heparin drip and Coumadin till INR therapeutic need IV abx, at least until 09/08. Discussed with manager case management. and pharmcy Time spent 25 minutes documented in this encounter Plan of Treatment Not on file documented as of this encounter Visit Diagnoses Not on filedocumented in this encounter Care Teams Food Safety Director Relationship Specialty Start Date End Date Reji Castro MD [address] [place] [id number] PCP - General Adolescent Medicine 10/02/22 documented as of this encounter
--- OUTSIDE RECORDS SUMMARY | 2025-05-24 09:14 | XMS_ITS | Encounter Summary ---
Author Organization [employer] ([place], [place], [place], [place]) Address [address] [place] [address] Care Team Providers Care Preparole Counseling Aide Name Role Phone Reji Castro MD Primary Care Provider + [phone] Encounter Details Date Type Department Care Team (Late st Contact Info) Description 08/13/2021 Transcribed Document [facility] [place] Medicine [address] [place] [address] ProviderDelvin MD [address] [place] [address] [phone] Social History Tobacco Use Types Packs/Day Years Used Date Smoking Tobacco: Never Assessed Comments Unknown Sex and Gender Information Value Date Recorded Sex Assigned at Not on file Legal Sex Female 4:32 PM CDT Gender Identity Not on file Sexual Orientation Not on file documented as of this encounter Miscellaneous Notes * [employer]ner Conversion Note - Historical ProviderMD - 08/13/2021 3:06 PM CDT Spiritual Care Short Form Entered On: 08/13/2021 16:16 EDT Performed On: 08/13/2021 15:06 EDT by FAIZA ARIZA General Information, Spiritual Care Intervention/Comment/Summary Points : PreSurgery visit; [facility] a significant resource for Ms. Costa; She expressed gratitude for visit HEADFAIZA - 08/13/2021 16:15 EDT documented in this encounter Plan of Treatment Not on file documented as of this encounter Visit Diagnoses Not on filedocumented in this encounter Care Teams Preparole Counseling Aide Relationship Specialty Start Date End Date Reji Castro MD [address] [place] [id number] PCP - General Adolescent Medicine 10/02/22 documented as of this encounter
--- OUTSIDE RECORDS SUMMARY | 2025-05-24 09:14 | XMS_ITS | Encounter Summary ---
Author Organization [employer] ([place], [place], [place], [place]) Address [address] [place] [address] Care Team Providers Care Operator Prefinish Name Role Phone Reji Castro MD Primary Care Provider + [phone] Encounter Details Date Type Department Care Team (Late st Contact Info) Description 08/13/[address] [facility] [place] Family Medicine [address] [place] [address] ProviderDelvin MD [address] [place] [address] [phone] Social History Tobacco Use Types Packs/Day Years [...] Performed On: 08/13/2021 5:00 EDT by Genna Gonsalez RN Chart Check Powerplans Initiated/Discontinued as Appropriate : Yes All Active Orders Reviewed : Yes Genna Gonsalez RN - 08/13/2021 6:34 EDT documented in this encounter Plan of Treatment Not on file documented as of this encounter Visit Diagnoses Not on filedocumented in this encounter Care Teams Operator Prefinish Relationship Specialty Start Date End Date Reji Castro MD [address] [place] [id number] PCP - General Adolescent Medicine 10/02/22 documented as of this encounter
--- OUTSIDE RECORDS SUMMARY | 2025-05-24 09:14 | XMS_ITS | Encounter Summary ---
Author Organization [email or web address] ([place], [place], [place], [place]) Address [address] [place] [address] Care Team Providers Care Solid Waste Collection Worker Name Role Phone Reji Castro MD Primary Care Provider + [phone] Encounter Details Date Type Department Care Team (Late st Contact Info) Description 08/18/2021 Transcribed Document [facility] [place] Family Medicine [address] [place] [address] ProviderDelvin MD [address] [place] [address] 163181 Social History Tobacco Use Types Packs/Day Years Used Date Smoking Tobacco: Never Assessed Comments Unknown Sex and Gender Information Value Date Recorded Sex Assigned at Not on file Legal Sex Female 4:32 PM CDT Gender Identity Not on file Sexual Orientation Not on file documented as of this encounter Miscellaneous Notes * Cerner Conversion Note - Historical ProviderMD - 08/18/2021 4:03 PM CDT Spiritual Care Short Form Entered On: 09/02/2021 12:43 EDT Performed On: 08/18/2021 16:03 EDT by FAIZA ARIZA General Information, Spiritual Care Intervention/Comment/Summary Points : PreSurgery visit [facility] Pre[facility] : [facility] FAIZA ARIZA - 09/02/2021 12:43 EDT documented in this encounter Plan of Treatment Not on file documented as of this encounter Visit Diagnoses Not on filedocumented in this encounter Care Teams Solid Waste Collection Worker Relationship Specialty Start Date End Date Reji Castro MD [address] [place] [id number] PCP - General Adolescent Medicine 10/02/22 documented as of this encounter
--- OUTSIDE RECORDS SUMMARY | 2025-05-24 09:14 | XMS_ITS | Encounter Summary ---
Author Organization [employer] ([place], [place], [place], [place]) Address [address] [place] [address] Care Team Providers Care General Service Officer Name Role Phone Reji Castro MD Primary Care Provider + [phone] Encounter Details Date Type Department Care Team (Late st Contact Info) Description 08/13/2021 Transcribed Document [facility] [place] [facility] [place] [address] ProviderDelivn MD [address] [place], [place] 197201 Social History Tobacco Use Types Packs/Day Years Used Date Smoking Tobacco: Never Assessed Comments Unknown Sex and Gender Information Value Date Recorded Sex Assigned at Not on file Legal Sex Female 4:32 PM CDT Gender Identity Not on file Sexual Orientation Not on file documented as of this encounter Miscellaneous Notes * Cerner Conversion Note - Delvin ProviderMD - 08/13/2021 7:24 AM CDT UM Authorization Entered On: 08/13/2021 7:24 EDT Performed On: 08/13/2021 7:24 EDT by Marline Leija, Side Panel Padder Primary Insurance Authorization Authorization and Policy Numbers : Insurance 1 Health Plan: [employer] P[employer] Policy Number: [id number] Authorization Number: Insurance 2 Health Plan: [place] Policy Number: [id number] Authorization Number: Insurance Primary Name : [employer] PPO Policy Number: [id number] Authorization Status-Primary : Notification only Reference Number-Primary : [id number] Authorization Number-Primary : [id number] Authorized Service Begin Date-Primary : 08/11/2021 EDT Authorization Comments-Primary : Authorized per email from Khari Little [place], RN. Historical Authorization Comments-Primary : Comment 1: Pend ref no per Availity, reviewer has access to [employer] (JORGE VALLES RN 08/12/2021 14:07) Marline Leija, Side Panel Padder - 08/13/2021 7:24 EDT Electronically signed by [facility] Conversion Vault Service Mechanic Cerner at 03/09/2023 8:49 PM CDT documented in this encounter Plan of Treatment Not on file documented as of this encounter Visit Diagnoses Not on filedocumented in this encounter Care Teams General Service Officer Relationship Specialty Start Date End Date Reji Castro MD [address] [place] [id number] PCP - General Adolescent Medicine 10/02/22 documented as of this encounter
--- OUTSIDE RECORDS SUMMARY | 2025-05-24 09:14 | XMS_ITS | Encounter Summary ---
Author Organization [employer] ([place], [place], [place], [place]) Address [address] [place] [address] Care Team Providers Care Patcher Bowling Ball Name Role Phone Reji Castro MD Primary Care Provider + [phone] Encounter Details Date Type Department Care Team (Late st Contact Info) Description 08/18/2021 Transcribed Document [facility] [place] [address] ProviderDelvin MD [address] [place] [address] [phone] Social History Tobacco Use Types Packs/Day Years [...] Warfarin HPI: 56 y/o F presenting to [facility] with history of COPD, [...] 18 06:) 63 (AUG 18 06:29) 84 (AUG 17 18:12) Resp Rate 18 (AUG 18 06:) 16 (AUG 17 22:27) 18 (AUG 18 06:29) SBP 105 (AUG 18 06:29) 101 (AUG 17:) 107 (AUG 18 02:02) DBP L 53 (AUG 18 06:29) L 45 (AUG 17 18:12) 61 (AUG 17:) MAP 77 (AUG 18 06:29) 70 (AUG 17 18:12) 78 (AUG 17 22:27) SpO2 95 (AUG 18 06:29) L 90 (AUG 18 02:02) 95 (AUG 18 06:29) Labs (Last four charted values) WBC 7.0 (AUG 18) 6.4 (AUG 17) 7.1 (AUG 15) 6.7 (AUG 14) HB L 7.7 (AUG 18) L 7.5 (AUG 17) L 7.5 (SEP 25) L 7.9 (JUL 24) HCT L 26.2 (AUG 18) L 25.4 (JUL 26) L 25.9 (SEP 25) L 26.7 (JUL 24) Plt 207 (AUG 18) 195 (AUG 17) 197 (JUL 24) 210 (JUL 23) Na [...] 8.9 (AUG 17) 9.5 (AUG 16) 9.4 (JUL 24) Lactic .93 (AUG 12) L .73 (AUG 11) PT H 13.6 (AUG 18) H 14.6 (AUG 17) H 17.2 (AUG 16) H 18.2 (AUG 15) INR H 1.3 (AUG 18) H 1.4 (AUG 17) H 1.7 (AUG 16) H 1.8 (AUG 15) PTT H 39.6 (JUL 20) AST 17 (AUG 18) 19 (JUL 24) 18 (JUL 22) 17 (AUG 13) ALT L 12 (AUG 18) 17 (JUL 24) 17 (AUG 13) 19 (AUG 13) ALK P 110 (AUG 18) 101 (SEP 24) 102 (AUG 13) 102 (AUG 13) T Bili 0.6 (AUG 18) 0.4 (SEP 24) 0.4 (AUG 13) 0.5 (AUG 13) PTN 6.8 (AUG 18) 7.0 (SEP 24) 7.3 (SEP 22) 6.9 (JUL 22) ALB 3.9 (AUG 18) 3.5 (SEP 24) 3.8 (AUG 13) 3.9 (AUG 13) [...] questions. Thank you, Andrea Moraes, PharmD PGY1 Veterinary Microbiologist Pager: [phone] [phone] documented in this encounter Plan of Treatment Not on file documented as of this encounter Visit Diagnoses Not on filedocumented in this encounter Care Teams Patcher Bowling Ball Relationship Specialty Start Date End Date Reji Castro MD [address] [place] [id number] PCP - General Adolescent Medicine 10/02/22 documented as of this encounter
--- OUTSIDE RECORDS SUMMARY | 2025-05-24 09:14 | XMS_ITS | Encounter Summary ---
Author Organization [employer] ([place], [place], [place], [place]) Address [address] [place] [address] Care Team Providers Care Smelting Engineer Name Role Phone Reji Castro MD Primary Care Provider + [phone] Encounter Details Date Type Department Care Team (Late st Contact Info) Description 08/22/2021 Transcribed Document [facility] [place] [address] ProviderDelvin MD [address] [place] [address]361 Social History Tobacco Use Types Packs/Day Years Used Date Smoking Tobacco: Never Assessed Comments Unknown Sex and Gender Information Value Date Recorded Sex Assigned at Not on file Legal Sex Female 4:32 PM CDT Gender Identity Not on file Sexual Orientation Not on file documented as of this encounter Miscellaneous Notes * [employer]ner Conversion Note - Historical ProviderMD - 08/22/2021 3:27 PM CDT On Going Discharge Planning Entered On: 08/22/2021 15:29 EDT Performed On: 08/22/2021 15:27 EDT by MADINA LOVETT RN - Web Development ManagerScow Hand Progress Note Discharge Arrangements : Patient Post-Acute [...] Rounds? : Yes MADINA LOVETT RN - Web Development Manager - 08/22/2021 15:27 EDT Narrative Progress Note [...] also faxed order for home health to [facility] which the patient states she has used before. Patient will probably not be ready for discharge until early next week per MDR. DCP: home with home health MADINA LOVETT RN - Web Development Manager - 08/21/21 15:11:24 RRS Low Boost 5 Day 07/30 Patient was admitted for staph infection and port removal. She had a new port placed on 08/19. Patient needs to remain inpatient until her coumadin is at a therapeutic level per at [facility]. Patient will need IV rocephin until 09/08. Patient will need home health and says she has used [facility] in the past. CM will refer her to them after final antibiotic order is placed. DCP: home with home health MADINA LOVETT RN - Web Development Manager - 08/20/21 13:35:46 RRS Low Boost 5 [...] will need home health and lvies in [place]. [facility] is a possibility. MADINA LOVETT RN - Web Development Manager - 08/19/21 15:40:22 RRS Low Boost 5 Day 7 Patient was admitted for a staph infection [...] will need home health and lives in [place]. [facility] home [facility] is a possibility. CM will continue to follow. DCP: MADINA LOVETT RN - Web Development Manager - 08/18/21 15:47:49 (late entry from [...] and send referrals as appropriate. JULIO STEWART, RN-Web Development Manager ED - 08/18/21 10:38:39 MADINA LOVETT, JEREMIAH - Web Development Manager - 08/22/2021 15:27 EDT documented in this encounter Plan of Treatment Not on file documented as of this encounter Visit Diagnoses Not on filedocumented in this encounter Care Teams Smelting Engineer Relationship Specialty Start Date End Date Reji Castro MD [address] [place] [id number] PCP - General Adolescent Medicine 10/02/22 documented as of this encounter
--- OUTSIDE RECORDS SUMMARY | 2025-05-24 09:14 | XMS_ITS | Encounter Summary ---
Author Organization [employer] ([place], [place], [place], [place]) Address [address] [place] [address] Care Team Providers Care Poly Packer And Heat Sealer Name Role Phone Reji Castro MD Primary Care Provider + [phone] Encounter Details Date Type Department Care Team (Late st Contact Info) Description 08/22/2021 Transcribed Document [facility] [place] Family Medicine [address] [place] [address] ProviderDelvin MD [address] [place] [address] [phone] Social History Tobacco Use Types Packs/Day Years [...] All Active Orders Reviewed : Yes Cady Moser RN - 08/22/2021 4:12 EDT documented in this encounter Plan of Treatment Not on file documented as of this encounter Visit Diagnoses Not on filedocumented in this encounter Care Teams Poly Packer And Heat Sealer Relationship Specialty Start Date End Date Reji Castro MD [address] [place] [id number] PCP - General Adolescent Medicine 10/02/22 documented as of this encounter
--- OUTSIDE RECORDS SUMMARY | 2025-05-24 09:14 | XMS_ITS | Encounter Summary ---
Author Organization [employer] ([place], [place], [place], [place]) Address [address] [place] [address] Care Team Providers Care Die Try Out Worker Stamping Name Role Phone Reji Castro MD Primary Care Provider + [phone] Encounter Details Date Type Department Care Team (Late st Contact Info) Description 08/24/2021 Transcribed Document [facility] [place] Family Medicine [facility] [place] [address] ProviderDelvin MD [address] [place] [address]361 Social History Tobacco Use Types Packs/Day Years [...] cefTRIAXone: 2 Gram, 100 mL/Hr, IV Piggyback, [id number] diphenhydrAMINE: 25 mg, Oral, Q6H, PRN: Itching [...] Oral, BID cefTRIAXone 2 Gram, IV Piggyback, [id number] citalopram 20 mg tab 40 mg 2 [...] Bioprosthetic mitral valve replacement / SNOMED CT 690923707 / Confirmed Chronic kidney disease / SNOMED CT 7630693811 / Confirmed COPD - Chronic obstructive pulmonary disease / SNOMED CT 139806971 / Confirmed History of obstructive sleep apnea / IMO 08508029 / Confirmed HLD - Hyperlipidemia / SNOMED CT 540148202 / Confirmed HTN - Hypertension / SNOMED CT 5939914454 / Confirmed Canceled: Atrial fibrillation / SNOMED CT 22291688, Active Problems (25) AIHA (autoimmune hemolytic anemia) [...] Monitor GFR adjust medications. Electronically signed by [facility] Conversion Obgyn Hospitalist Physician Cerner at 03/09/2023 8:38 PM CDT documented in this encounter Plan of Treatment Not on file documented as of this encounter Visit Diagnoses Not on filedocumented in this encounter Care Teams Die Try Out Worker Stamping Relationship Specialty Start Date End Date Reji Castro MD [address] [place] [id number] PCP - General Adolescent Medicine 10/02/22 documented as of this encounter
--- OUTSIDE RECORDS SUMMARY | 2025-05-24 09:14 | XMS_ITS | Encounter Summary ---
Author Organization [employer] ([place], [place], [place], [place]) Address [address] [place] [address] Care Team Providers Care Clinical Project Manager Name Role Phone Reji Castro MD Primary Care Provider + [phone] Encounter Details Date Type Department Care Team (Late st Contact Info) Description 08/22/2021 Transcribed Document [facility] [place] [facility] [place] [address] ProviderDelvin MD [address] [place] [address] [phone] Social History Tobacco Use Types Packs/Day Years Used Date Smoking Tobacco: Never Assessed Comments Unknown Sex and Gender Information Value Date Recorded Sex Assigned at Not on file Legal Sex Female 4:32 PM CDT Gender Identity Not on file Sexual Orientation Not on file documented as of this encounter Miscellaneous Notes * [employer]ner Conversion Note - Delvin ProviderMD - 08/22/2021 3:56 PM CDT Patient: IRINA TAMAYO Age: 56 years Sex: Female : 1965 Associated Diagnoses: None Author: Andrea Moraes, Resident Pharmacist Pharmacy Consult - Warfarin HPI: 56 y/o F presenting to [facility] with history of COPD, atrial fibrillation, [...] cefTRIAXone: 2 Gram, 100 mL/Hr, IV Piggyback, [id number]. citalopram: 40 mg, Oral, Daily. diphenhydrAMINE: 25 [...] (AUG 19) Plt 181 (AUG 22) 188 (JUL 30) 210 (AUG 20) 207 (AUG 19) Na [...] weekend. Thank you, Andrea Moraes, PharmD PGY1 [employer] [place] Pager: [phone], Ext. [phone] documented in this encounter Plan of Treatment Not on file documented as of this encounter Visit Diagnoses Not on filedocumented in this encounter Care Teams Clinical Project Manager Relationship Specialty Start Date End Date Reji Castro MD [address] [place] [id number] PCP - General Adolescent Medicine 10/02/22 documented as of this encounter
--- OUTSIDE RECORDS SUMMARY | 2025-05-24 09:14 | XMS_ITS | Encounter Summary ---
Author Organization [employer] ([place], [place], [place], [place]) Address [address] [place] [address] Care Team Providers Care Cigar Packer And Shader Name Role Phone Reji Castro MD Primary Care Provider + [phone] Encounter Details Date Type Department Care Team (Late st Contact Info) Description 08/13/2021 Transcribed Document [facility] [place] [facility] [place] [address] ProviderDelvin MD [address] [place] [address] [phone] Social History Tobacco Use Types Packs/Day Years [...] her port could not be accessed. Her roof slater aspirated fluid from the port that was evidently purulent. I have not yet been able to track down that culture. After the aspiration she developed fever to 103, severe CEHUNG, myalgias and arthralgias. She was admitted to [facility]. She was in the hospital [...] contacted and told to report to [facility] because she had + blood cutures concerning for an infected portacath +/- PVE. I contacted the micro lab at [facility] and was told that she did not [...] to have Cr 2.5, ProBNP 813, H/H 9./, INR 1.8. 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 Integumentary: Warm, [place]. Neurologic: Alert, Oriented, No focal deficits. Psychiatric: [...] (SEP 21) 206 (SEP 21) 201 (SEP ) Na 136 (SEP 22) L 134 (SEP 21) L 131 (SEP 20) K 4.5 (SEP 22) 3.6 (SEP 21) 4.1 (SEP 20) Cl 103 (SEP ) L 98 (SEP 21) L 96 (SEP 20) CO2 30 (SEP ) 29 (SEP ) 26 (SEP 20) BUN H 50 (JUL 22) H 69 (SEP 21) H 70 (SEP 20) Cr H 1.60 (SEP 22) H 2.40 (SEP 21) H 2.50 (SEP 20) Glu R 102 (AUG 13) H 134 (SEP 21) 87 (SEP 20) Ca 9.1 (SEP 22) 9.6 (SEP 21) 10.0 (SEP 20) Lactic .93 (SEP 21) L .73 (SEP 20) PT H 16.3 (JUL 22) H 17.5 (SEP 21) H 17.1 (SEP 21) H 18.9 (SEP 20) INR H 1.6 (SEP 22) H 1.7 (SEP 21) H 1.6 [...] (SEP 20) ALB 3.9 (SEP 22) 3.9 (AUG 12) 4.4 (AUG 11) Lipase [...] recommend therapy to 09/22 Electronically signed by [facility] Conversion Data Integrity Consultant Cerner at 03/09/2023 8:46 PM CDT documented in this encounter Plan of Treatment Not on file documented as of this encounter Visit Diagnoses Not on filedocumented in this encounter Care Teams Cigar Packer And Shader Relationship Specialty Start Date End Date Reji Castro MD [address] [place] [id number] PCP - General Adolescent Medicine 10/02/22 documented as of this encounter
--- OUTSIDE RECORDS SUMMARY | 2025-05-24 09:14 | XMS_ITS | Encounter Summary ---
Author Organization [employer] ([place], [place], [place], [place]) Address [address] [place] [address] Care Team Providers Care Cnc Programmer Name Role Phone Reji Castro MD Primary Care Provider [phone] Encounter Details Date Type Department Care Team (Late st Contact Info) Description 08/24/2021 Transcribed Document [facility] Radiology [address] [place] [address] Loren Solorzano MD [address] [place] [address] [place] [address] Social History Tobacco Use Types Packs/Day Years [...] cefTRIAXone: 2 Gram, 100 mL/Hr, IV Piggyback, [id number] diphenhydrAMINE: 25 mg, Oral, Q6H, PRN: Itching [...] Oral, BID cefTRIAXone 2 Gram, IV Piggyback, [id number] citalopram 20 mg tab 40 mg 2 [...] Bioprosthetic mitral valve replacement / SNOMED CT 100404124 / Confirmed Chronic kidney disease / SNOMED CT 4391142583 / Confirmed COPD - Chronic obstructive pulmonary disease / SNOMED CT 070400586 / Confirmed History of obstructive sleep apnea / IMO [id number] / Confirmed HLD - Hyperlipidemia / SNOMED CT 368648799 / Confirmed HTN - Hypertension / SNOMED CT 9884068384 / Confirmed Canceled: Atrial fibrillation / SNOMED CT 26907986, Active Problems (25) AIHA (autoimmune hemolytic anemia) [...] 26.6 \ Radiology Results (Last 48 hours) [id number] -- 08/11/2021 21:21 CR Chest 1 Vw [...] 25.6 (AUG 22) L 25.2 (JUL 30) Plt 194 (AUG 24) 181 (AUG 23) 181 (AUG 22) 188 (AUG 21) Na 137 (AUG 24) 139 (AUG 23) 138 (AUG 22) 138 (JUL 30) K 3.9 (AUG 24) 3.8 (AUG 23) 3.7 (AUG 22) 3.8 (JUL 30) Cl L 99 (AUG 24) L [...] <0.015 (JUL 20) <0.015 (AUG 11) . Medication Changes from [...] Hold home meds SSI #Depression Celexa #Pain [place] 10 mg every 6 hours as needed CODE STATUS. Full code Dispo: Given patient with history of multiple blood transfusion we will keep patient in the hospital on heparin drip and Coumadin till INR therapeutic need IV abx, at least until 09/08. Discussed with rn case mgr. and pharmcy Time spent 25 minutes documented in this encounter Plan of Treatment Not on file documented as of this encounter Visit Diagnoses Not on filedocumented in this encounter Care Teams Cnc Programmer Relationship Specialty Start Date End Date Reji Castro MD [address] [place] [address] PCP - General Adolescent Medicine 10/02/22 documented as of this encounter
--- OUTSIDE RECORDS SUMMARY | 2025-05-24 09:14 | XMS_ITS | Encounter Summary ---
Author Organization [employer] ([place], [place], [place], [place]) Address [address] [place] [address] Care Team Providers Care Garment Manufacturing Supervisor Name Role Phone Reji Castro MD Primary Care Provider + [phone] Encounter Details Date Type Department Care Team (Late st Contact Info) Description 08/22/2021 Transcribed Document [facility] Family Medicine [facility] [address] ProviderDelvin MD [address] [place] [address] [id number] Social History Tobacco Use Types Packs/Day Years Used Date Smoking Tobacco: Never Assessed Comments Unknown Sex and Gender Information Value Date Recorded Sex Assigned at Not on file Legal Sex Female 4:32 PM CDT Gender Identity Not on file Sexual Orientation Not on file documented as of this encounter Miscellaneous Notes * Cerner Conversion Note - Historical ProviderMD - 08/22/2021 2:00 AM CDT Floor Space Allocator Details Entered On: 08/22/2021 4:12 EDT Performed [...] on filedocumented in this encounter Care Teams Garment Manufacturing Supervisor Relationship Specialty Start Date End Date Reji Castro MD [address] [place] [address] PCP - General Adolescent Medicine 10/02/22 documented as of this encounter
--- OUTSIDE RECORDS SUMMARY | 2025-05-24 09:14 | XMS_ITS | Encounter Summary ---
Author Organization [employer] ([place], [place], [place], [place]) Address [address] [place] [address] Care Team Providers Care Garland Maker Name Role Phone Reji Castro MD Primary Care Provider + [phone] Encounter Details Date Type Department Care Team (Late st Contact Info) Description 08/27/[address] [facility] Family Medicine [address] [place] [address] ProviderDelvin MD [address] [place] [address] 369141 Social History Tobacco Use Types Packs/Day Years Used Date Smoking Tobacco: Never Assessed Comments Unknown Sex and Gender Information Value Date Recorded Sex Assigned at Not on file Legal Sex Female 4:32 PM CDT Gender Identity Not on file Sexual Orientation Not on file documented as of this encounter Miscellaneous Notes * Cerner Conversion Note - Historical ProviderMD - 08/27/2021 12:50 PM CDT Nursing Discharge Summary Entered On: 08/27/2021 12:50 EDT Performed On: 08/27/2021 12:50 EDT by STEVEN MENDES RN Discharge Documentation Patient Disposition, General : Discharge Discharge To : Home with ambulatory/outpatient follow-up Education Comment : poc, meds, safety STEVEN MENDES RN - 08/27/2021 12:50 EDT documented in this encounter Plan of Treatment Not on file documented as of this encounter Visit Diagnoses Not on filedocumented in this encounter Care Teams Garland Maker Relationship Specialty Start Date End Date Reji Castro MD [address] [place] [address] PCP - General Adolescent Medicine 10/02/22 documented as of this encounter
--- OUTSIDE RECORDS SUMMARY | 2025-05-24 09:14 | XMS_ITS | Encounter Summary ---
Author Organization [employer] ([place], [place], [place], [place]) Address [address] [place] [address] Care Team Providers Care Studio Hand Name Role Phone Reji Castro MD Primary Care Provider [phone] Reason for Referral * Ultrasound (Routine) - Closed Specialty Diagnoses / Procedures Referred By Contac t Referred To Contact Diagnoses Acute renal failure, unspecified acute renal failure type (HCC) Procedures Ultrasound head neck soft tissue Marion Umana MD Phone: tel: fax: Referral ID Status Reason Start Date Expiration Date Visits Re quested Visits Authorized [id number] Closed 09/28/2022 03/27/2023 1 1 Encounter Details Date Type Department Care Team (Late st Contact Info) Description 09/28/2022 Outside Orders [facility] Central Scheduling 1 [place] [address] Marion Umana MD [facility] [address] [place] [address] Acute renal failure, unspecified acute renal failure [...] Primary documented in this encounter Care Teams Studio Hand Relationship Specialty Start Date End Date Reji Castro MD [address] [place], [place] [address] PCP - General Adolescent Medicine 10/02/22 documented as of this encounter
--- OUTSIDE RECORDS SUMMARY | 2025-05-24 09:14 | XMS_ITS | Encounter Summary ---
Author Organization [employer] ([place], [place], [place], [place]) Address [address] [place] [address] Care Team Providers Care Lime Filter Operator Name Role Phone Reji Castro MD Primary Care Provider + [phone] Encounter Details Date Type Department Care Team (Late st Contact Info) Description 08/24/2021 Transcribed Document [facility] [place] [facility] [address] ProviderDelvin MD [address] [place] [address] [phone] Social History Tobacco Use Types Packs/Day Years Used Date Smoking Tobacco: Never Assessed Comments Unknown Sex and Gender Information Value Date Recorded Sex Assigned at Not on file Legal Sex Female 4:32 PM CDT Gender Identity Not on file Sexual Orientation Not on file documented as of this encounter Miscellaneous Notes * Cerner Conversion Note - Delvin ProviderMD - 08/24/2021 4:12 PM CDT Patient: IRINA [...] cefTRIAXone: 2 Gram, 100 mL/Hr, IV Piggyback, [id number]. citalopram: 40 mg, Oral, Daily. diphenhydrAMINE: 25 [...] 23 21:18) 86 (AUG 23 21:18) 86 (OCT 02 21:18) Mon HR 83 (AUG 24 06:36) 80 (AUG 02 23:15) 90 (AUG 23 18:09) Resp Rate 18 (AUG 24 06:36) 16 (AUG 24 03:30) 18 (AUG 23 18:09) SBP 108 (AUG [...] 02) L 7.5 (AUG 22) L 7.4 (AUG 21) HCT L 26.6 (AUG 03) L 26.0 (AUG 02) L 25.6 (AUG 01) L 25.2 (JUL 30) Plt 194 (AUG 03) 181 (AUG 02) 181 (AUG 22) 188 (JUL 30) Na 137 (AUG 03) 139 (AUG 02) 138 (AUG 22) 138 (JUL 30) K 3.9 (OCT 03) 3.8 (OCT 02) 3.7 (AUG 22) 3.8 (JUL 30) Cl L 99 (AUG 03) L 101 (AUG 23) 102 (AUG 22) 103 (AUG 21) CO2 H 35 (AUG 03) H 34 (AUG 02) H 33 (OCT ) 31 (JUL 30) BUN H 23 (AUG 03) 19 (AUG 02) 19 (AUG 01) 19 (JUL 30) Cr H 1.40 (AUG 03) H 1.40 (AUG 02) H 1.40 (AUG 01) H 1.30 (JUL 30) Glu R H 120 (OCT 03) H 118 (OCT 02) H 137 (AUG 01) H 129 (JUL 30) Ca 9.4 (AUG 03) 9.1 (OCT 02) 8.9 (AUG 22) 8.6 (AUG 21) Lactic [...] you, Noy Garrett, PharmD PGY-1 Resident Pager #[phone] Electronically signed by Lanny [facility] Conversion Farm Machinery Erector Cerner at 03/09/2023 8:39 PM CDT documented in this encounter Plan of Treatment Not on file documented as of this encounter Visit Diagnoses Not on filedocumented in this encounter Care Teams Lime Filter Operator Relationship Specialty Start Date End Date Reji Castro MD [address] [place] [address] PCP - General Adolescent Medicine 10/02/22 documented as of this encounter
--- OUTSIDE RECORDS SUMMARY | 2025-05-24 09:14 | XMS_ITS | Encounter Summary ---
Author Organization [employer] ([place], [place], [place], [place]) Address [address] [place] [address] Care Team Providers Care Patient Portal Concierge Name Role Phone Reji Castro MD Primary Care Provider + [phone] Encounter Details Date Type Department Care Team (Late st Contact Info) Description 08/27/2021 Transcribed Document [facility] [place] [address] [place] [address] ProviderDelvin MD [address] [place] [phone] Social History Tobacco Use Types Packs/Day Years [...] Performed On: 08/27/2021 5:00 EDT by Pamela Miguel RN Chart Check Powerplans Initiated/Discontinued as Appropriate : Yes All Active Orders Reviewed : Yes Pamela Miguel RN - 08/27/2021 3:29 EDT Electronically signed by Lanny [facility] Conversion Packaging Specialist Cerner at 03/09/2023 8:34 PM CDT documented in this encounter Plan of Treatment Not on file documented as of this encounter Visit Diagnoses Not on filedocumented in this encounter Care Teams Patient Portal Concierge Relationship Specialty Start Date End Date Reji Castro MD [address] [place] [address] PCP - General Adolescent Medicine 10/02/22 documented as of this encounter
--- OUTSIDE RECORDS SUMMARY | 2025-05-24 09:14 | XMS_ITS | Encounter Summary ---
Author Organization [employer] ([place], [place], [place], [place]) Address [address] [place] [address] Care Team Providers Care Manager Domestic Name Role Phone Reji Castro MD Primary Care Provider + [phone] Encounter Details Date Type Department Care Team (Late st Contact Info) Description 08/13/2021 Transcribed Document [facility] [address] ProviderDelvin MD [address] [place] [address] [phone] Social History Tobacco Use Types Packs/Day Years Used Date Smoking Tobacco: Never Assessed Comments Unknown Sex and Gender Information Value Date Recorded Sex Assigned at Not on file Legal Sex Female 4:32 PM CDT Gender Identity Not on file Sexual Orientation Not on file documented as of this encounter Miscellaneous Notes * Cerner Conversion Note - Historical ProviderMD - 08/13/2021 3:58 PM CDT Patient: IRINA [...] III. Patient follows with Dr gonzáles in [place]. She has hx of obstructive uropathy [...] GUERRA) Provider Information Primary Care Physician - ENRIQUETA, DEREK PRIM Attending Physician - FAIZA YOUSSEF, Admitting [...] # 0.62 x10(3)/uL (Low) 08/13/2021 05:19 EDT [place] % 9.5 % (High) 08/13/2021 05:19 EDT [place] # 0.52 K/uL 08/13/2021 05:19 EDT Eos [...] mcg/mL 08/13/2021 05:19 EDT Electronically signed by [facility] Conversion Tank Welder Cerner at 03/09/2023 9:02 PM CDT documented in this encounter Plan of Treatment Not on file documented as of this encounter Visit Diagnoses Not on filedocumented in this encounter Care Teams Manager Domestic Relationship Specialty Start Date End Date Reji Castro MD [address] [place] [address] PCP - General Adolescent Medicine 10/02/22 documented as of this encounter
--- OUTSIDE RECORDS SUMMARY | 2025-05-24 09:14 | XMS_ITS | Encounter Summary ---
Author Organization [employer] ([place], [place], [place], [place]) Address [address] [place] [address] Care Team Providers Care Dedicated Intermodal Truck Driver Name Role Phone Reji Castro MD Primary Care Provider + [phone] Encounter Details Date Type Department Care Team (Late st Contact Info) Description 08/27/2021 Transcribed Document [facility] [place] [facility] [place] [address] ProviderDelvin MD [address] [place] [address] [phone] Social History Tobacco Use Types Packs/Day Years Used Date Smoking Tobacco: Never Assessed Comments Unknown Sex and Gender Information Value Date Recorded Sex Assigned at Not on file Legal Sex Female 4:32 PM CDT Gender Identity Not on file Sexual Orientation Not on file documented as of this encounter Miscellaneous Notes * Cerner Conversion Note - Delvin ProviderMD - 08/27/2021 9:52 AM CDT Patient: IRINA [...] HR 74 (AUG 26 20:36) 74 (AUG 05 20:36) 74 (AUG 05 20:36) Mon HR 71 (AUG 27 04:53) 71 (AUG 27 04:53) 85 (AUG 26 11:00) Resp Rate 14 (AUG 27 04:53) 14 (AUG 05 20:34) 16 (AUG 26 23:00) SBP 103 (AUG 27 04:53) 98 (AUG 27 03:15) 115 (AUG 26 11:00) DBP 62 (AUG 27 04:53) L 49 (AUG 05 23:38) 74 (AUG 05 20:34) MAP 76 (AUG 27 04:53) 71 (AUG 05 23:38) 85 (AUG 26 20:34) SpO2 96 (AUG 27 04:53) L 91 (AUG 05 20:34) 96 (AUG 27 04:53) Labs (Last four charted values) WBC 5.3 (AUG 06) 4.5 (AUG 05) 5.4 (AUG 04) 5.6 (AUG 03) HB L 8.8 (AUG 06) L 8.4 (OCT 05) L 7.7 (OCT 04) L 7.8 (AUG 03) HCT L 29.6 (OCT 06) L 29.0 (OCT 05) L 26.5 (OCT 04) L 26.6 (AUG 03) Plt 176 (AUG 06) L 152 (OCT 05) 180 (OCT 04) 194 (AUG 03) Na 137 (AUG 06) 138 (OCT 05) 140 (AUG 04) 137 (AUG 03) K 4.0 (AUG 06) 4.0 (AUG 05) 4.1 (AUG 04) 3.9 (AUG 03) Cl L 97 (AUG 06) L 99 (OCT 05) L 99 (AUG 04) L 99 (AUG 03) CO2 H 36 (AUG 06) H 35 (AUG 05) H 37 (AUG 25) H 35 (AUG 03) BUN 22 (AUG 06) H 23 (AUG 05) 22 (AUG 04) H 23 (AUG 03) Cr H 1.40 (AUG 06) H 1.30 (AUG 05) H 1.40 (AUG 04) H 1.40 (AUG 24) Glu R H 140 (AUG 27) 103 (AUG 05) 91 (AUG 04) H 120 (AUG 03) Ca 9.5 (AUG 06) 9.4 (AUG 05) 9.7 (AUG 25) 9.4 (AUG 03) Lactic .93 (AUG 12) L .73 (AUG 11) PT H 26.0 (AUG 06) H 22.4 (AUG 05) H 19.3 (AUG 04) H 18.8 (AUG 03) INR H [...] Acosta 3). Daily INR Will followZeyad PharmD, [facility] [phone] Electronically signed by Lanny [facility] Conversion Iron Miner Blasting Cerner at 03/09/2023 8:32 PM CDT documented in this encounter Plan of Treatment Not on file documented as of this encounter Visit Diagnoses Not on filedocumented in this encounter Care Teams Dedicated Intermodal Truck Driver Relationship Specialty Start Date End Date Reji Castro MD [address] [place] [address] PCP - General Adolescent Medicine 10/02/22 documented as of this encounter
--- OUTSIDE RECORDS SUMMARY | 2025-05-24 09:14 | XMS_ITS | Encounter Summary ---
Author Organization [employer] ([place], [place], [place], [place]) Address [address] [place] [address] Care Team Providers Care Tomato Grader Name Role Phone Reji Castro MD Primary Care Provider + [phone] Encounter Details Date Type Department Care Team (Late st Contact Info) Description 08/24/2021 Transcribed Document [facility] [place] Family Medicine [address] [place] [address] ProviderDelvin MD [address] [place] [address] [phone] Social History Tobacco Use Types Packs/Day Years [...] Performed On: 08/24/2021 5:00 EDT by Usha Adler RN Chart Check Powerplans Initiated/Discontinued as Appropriate : Yes All Active Orders Reviewed : Yes Usha Adler RN - 08/24/2021 5:28 EDT documented in this encounter Plan of Treatment Not on file documented as of this encounter Visit Diagnoses Not on filedocumented in this encounter Care Teams Tomato Grader Relationship Specialty Start Date End Date Reji Castro MD [address] [place] [address] PCP - General Adolescent Medicine 10/02/22 documented as of this encounter
--- OUTSIDE RECORDS SUMMARY | 2025-05-24 09:14 | XMS_ITS | Encounter Summary ---
Author Organization [employer] ([place], [place], [place], [place]) Address [address] [place] [address] Care Team Providers Care Pack Puller Name Role Phone Reji Castro MD Primary Care Provider + [phone] Encounter Details Date Type Department Care Team (Late st Contact Info) Description 08/18/2021 Transcribed Document [facility] [place] Family Medicine [address] [place] [address] ProviderDelvin MD [address] [place] [address] [phone] Social History Tobacco Use Types Packs/Day Years Used Date Smoking Tobacco: Never Assessed Comments Unknown Sex and Gender Information Value Date Recorded Sex Assigned at Not on file Legal Sex Female 4:32 PM CDT Gender Identity Not on file Sexual Orientation Not on file documented as of this encounter Miscellaneous Notes * Cerner Conversion Note - Delvin ProviderMD - 08/18/2021 3:44 PM CDT On Going Discharge Planning Entered On: 08/18/2021 15:47 EDT Performed On: 08/18/2021 15:44 EDT by MADINA LOVETT RN - Service Center SpecialistBuckle And Button Maker Progress Note Discharge Arrangements : Patient [...] Rounds? : Yes MADINA LOVETT, RN - Service Center Specialist - 08/18/2021 15:44 EDT Narrative Progress Note [...] will need home health and lives in [place]. [facility] home health is a possibility. CM will [...] and send referrals as appropriate. JULIO STEWART, RN-Service Center Specialist ED - 08/18/21 10:38:39 MADINA LOVETT, JEREMIAH - Service Center Specialist - 08/18/2021 15:44 EDT documented in this encounter Plan of Treatment Not on file documented as of this encounter Visit Diagnoses Not on filedocumented in this encounter Care Teams Pack Puller Relationship Specialty Start Date End Date Reji Castro MD [address] [place] [id number] PCP - General Adolescent Medicine 10/02/22 documented as of this encounter
--- OUTSIDE RECORDS SUMMARY | 2025-05-24 09:14 | XMS_ITS | Encounter Summary ---
Author Organization [employer] ([place], [place], [place], [place]) Address [address] [place] [address] Care Team Providers Care Pelts Skinner Name Role Phone Reji Castro MD Primary Care Provider + [phone] Encounter Details Date Type Department Care Team (Late st Contact Info) Description 08/27/2021 Transcribed Document [place] Family Medicine [address] [place] [address] ProviderDelvin MD [address] [place], [place] [phone] Social History Tobacco Use Types Packs/Day Years Used Date Smoking Tobacco: Never Assessed Comments Unknown Sex and Gender Information Value Date Recorded Sex Assigned at Not on file Legal Sex Female 4:32 PM CDT Gender Identity Not on file Sexual Orientation Not on file documented as of this encounter Miscellaneous Notes * Cerner Conversion Note - Delvin ProviderMD - 08/27/2021 10:18 AM CDT Reji Castro MD [address] [facility] [address] [place] [address] Re: IRINA TAMAYO Date of Visit: 08/11/2021 Dear Reji [...] contents is strictly prohibited. Sincerely, FAIZA YOUSSEF [address] [facility] [address] [place] [address] The following document(s) were included in the letter: August 27, 2021 10:05:19 EDT - (08/27/2021) Discharge Note documented in this encounter Plan of Treatment Not on file documented as of this encounter Visit Diagnoses Not on filedocumented in this encounter Care Teams Pelts Skinner Relationship Specialty Start Date End Date Reji Castro MD [address] [place] [address] PCP - General Adolescent Medicine 10/02/22 documented as of this encounter
--- OUTSIDE RECORDS SUMMARY | 2025-05-24 09:14 | XMS_ITS | Encounter Summary ---
Author Organization [employer] ([place], [place], [place], [place]) Address [address] [place] [address] Care Team Providers Care Manager Application Development Name Role Phone Reji Castro MD Primary Care Provider + [phone] Encounter Details Date Type Department Care Team (Late st Contact Info) Description 08/27/2021 Transcribed Document [facility] [place] Family Medicine [address] [place] [address] ProviderDelvin MD [address] [place], [place] [phone] Social History Tobacco Use Types Packs/Day Years Used Date Smoking Tobacco: Never Assessed Comments Unknown Sex and Gender Information Value Date Recorded Sex Assigned at Not on file Legal Sex Female 4:32 PM CDT Gender Identity Not on file Sexual Orientation Not on file documented as of this encounter Miscellaneous Notes * Cerner Conversion Note - Historical ProviderMD - 08/27/2021 10:31 AM CDT Stroke/Warfarin Instructions Entered On: 08/27/2021 10:32 EDT Performed On: 08/27/2021 10:31 EDT by Sallie Solorzano RN-Idea Device Stroke/Warfarin Instructions Stroke/TIA Discharge Ins : N/A Sallie Solorzano RN-Idea Device - 08/27/2021 10:34 EDT Warfarin Discharge Ins : Open Sallie Solorzano RN-Idea Device - 08/27/2021 10:31 EDT Warfarin Discharge Instructions Physician to Manage Warfarin : Sallie Tavarez RN-Idea Device - 08/27/2021 10:34 EDT Indication for Warfarin [...] Dose/Frequency : 6 mg daily Sallie Solorzano RN-Idea Device - 08/27/2021 10:31 EDT Education Topics: Anticoagulant [...] : Tod Sawyer to manage Sallie Solorzano RN-Idea Device - 08/27/2021 10:34 EDT documented in this encounter Plan of Treatment Not on file documented as of this encounter Visit Diagnoses Not on filedocumented in this encounter Care Teams Manager Application Development Relationship Specialty Start Date End Date Reji Castro MD [address] [place] [address] PCP - General Adolescent Medicine 10/02/22 documented as of this encounter
--- OUTSIDE RECORDS SUMMARY | 2025-05-24 09:14 | XMS_ITS | Encounter Summary ---
Author Organization [employer] ([place], [place], [place], [place]) Address [address] [place] [address] Care Team Providers Care Director Of Analytics Name Role Phone Reji Castro MD Primary Care Provider + [phone] Encounter Details Date Type Department Care Team (Late st Contact Info) Description 08/27/2021 Transcribed Document [facility] [place] [address] [place] [address] ProviderDelvin MD [address] [place] [address] [phone] Social History Tobacco Use Types Packs/Day Years [...] implanted port has two main parts: ??? [place]. The reservoir is the part where a [...] water are not available, use alcohol-based hand operations professional. ? Change your dressing as told by [...] provider. Document Revised: 03/01/2020 Document Reviewed: 12/11/2017 [employer] Patient Education ? 2020 [employer] Cardiovascular Atrial Fibrillation Atrial fibrillation is a [...] signals of the heart. ??? An ambulatory environmental monitoring specialist to record your heart's activity for a [...] provider. Document Revised: 05/01/2020 Document Reviewed: 05/01/2020 [employer] Patient Education ? 2020 [employer]. Caregiving Implanted Port Home Guide An implanted [...] implanted port has two main parts: ??? [place]. The reservoir is the part where a [...] water are not available, use alcohol-based hand operations professional. ? Change your dressing as told by [...] provider. Document Revised: 03/01/2020 Document Reviewed: 12/11/2017 Else[employer]ria Patient Education ? 2020 [employer]. Endocrinology Diabetes Mellitus and Nutrition, Adult [...] Berries. Apples. Oranges. Peaches. Apricots. Plums. Grapes. Denzel. Papaya. Pomegranate. Kiwi. Cherries. Vegetables Lettuce. Spinach. Leafy greens, including kale, chard, yanira greens, and mustard greens. Beets. Cauliflower. Cabbage. Broccoli. Carrots. Green beans. Tomatoes. Peppers. Onions. Cucumbers. [place] sprouts. Grains Whole grains, such as whole-wheat [...] I need to meet with a certified adapted physical educator? Do I need to meet with a dietitian? What number can I call if I have questions? When are the best times to check my blood glucose? Where to find more information: ??? [place] Diabetes Association: diabetes.org ??? Academy of Nutrition and Dietetics: www.eatright.org ??? National [place] of Diabetes and Digestive and Kidney Diseases: [...] provider. Document Revised: 10/15/2020 Document Reviewed: 10/15/2020 Else[employer]ria Patient Education ? 2020 [employer] Hematology Warfarin Coagulopathy Warfarin coagulopathy refers [...] stopping any new medicines. Many prescription and vepy-doc-kmtvhsm medicines can interfere with warfarin. This includes zeac-zfd-aoibgfd vitamins, dietary supplements, herbal medicines, and pain [...] that you work with a diet and nutritional services host (dietitian). ??? Vitamin K makes warfarin less [...] Preventing bleeding and injury ??? Some common vzwk-zxc-yzqxlrr medicines and supplements may increase the risk [...] diet. ??? You start or stop any xpvy-ziw-xihwcgx medicine, prescription medicine, or dietary supplement. ??? [...] provider. Document Revised: 10/21/2018 Document Reviewed: 01/26/2018 [employer] Patient Education ? 2020 [employer] Infectious Disease Bacteremia, Adult Bacteremia is [...] these instructions at home: Medicines ??? Take piqi-wck-gkbknnc and prescription medicines only as told by [...] and water are not available, use hand operations professional. ??? You should wash your hands: ? [...] care provider. ??? Practice good oral hygiene. [place] your teeth two times a day, and [...] provider. Document Revised: 03/29/2020 Document Reviewed: 03/29/2020 [employer] Patient Education ? 2020 [employer]. Nephrology Acute Kidney Injury, Adult Acute kidney [...] these instructions at home: Medicines ??? Take auui-lry-leqbsgf and prescription medicines only as told by [...] important. Where to find more information ??? [place] Association of Kidney Patients: www.aakp.org ??? National Kidney Foundation: www.kidney.org ??? [place] Kidney Fund: www.akfinc.org ??? Life Options Rehabilitation [...] provider. Document Revised: 09/17/2020 Document Reviewed: 09/17/2020 [employer] Patient Education ? 2020 [employer]. Chronic Kidney Disease, Adult Chronic kidney disease [...] these instructions at home: Medicines ??? Take aijl-ana-odwtzws and prescription medicines only as told by [...] provider. Document Revised: 10/21/2018 Document Reviewed: 12/13/2017 [employer] Patient Education ? 2020 [employer]. Pharmacology Vitamin K Foods and Warfarin Warfarin [...] before making changes. ??? Work with a nutritional services host (dietitian) to develop a meal plan that works best for you. What foods are high in vitamin K? Foods that are high in vitamin K contain more than 100 mcg (micrograms) per serving. These include: ??? Broccoli (cooked from fresh) ? ? cup (78 g) has 110 mcg. ??? Palmyra sprouts (cooked from fresh) ? ? cup [...] cup (90 g) has 444 mcg. ??? Czech chard (cooked from fresh) ? ? cup [...] cup (54 g) has 8 mcg. ??? [place] with peel (raw) ? ? cup (52 g) has 9 mcg. ??? Grapes ? ? cup (76 g) has 12 mcg. ??? [place] ? 1 medium (207 g) has 9 [...] provider. Document Revised: 08/27/2020 Document Reviewed: 08/27/2020 [employer] Patient Education ? 2020 [employer]. Aspirin and Your Heart Aspirin is [...] The two forms of aspirin are: ? Qjj-jzageqp-sxmeqh.This type of aspirin does not have a coating and is absorbed quickly. This type of aspirin also comes in a chewable form. ? Enteric-coated. This type of aspirin has a coating that releases the medicine very slowly. Enteric-coated aspirin might cause less stomach upset than rca-bhggcqn-dgdybo aspirin. This type of aspirin should not [...] these instructions at home Medicines ??? Take enmp-ket-tsbxtvp and prescription medicines only as told by [...] Where to find more information ??? The [place] Heart Association: www.heart.org Contact a health care [...] in this encounter Care Teams Director Of Analytics Relationship Specialty Start Date End Date Reji Castro MD [address] [place] [address] PCP - General Adolescent Medicine 10/02/22 documented as of this encounter
--- OUTSIDE RECORDS SUMMARY | 2025-05-24 09:14 | XMS_ITS | Encounter Summary ---
Author Organization [employer] ([place], [place], [place], [place]) Address [address] [place] [address] Care Team Providers Care Packaging Supervisor Name Role Phone Reji Castro MD Primary Care Provider [phone] Reason for Referral * Nuclear Medicine (Routine) - Closed Specialty Diagnoses / Procedures Referred By Contac t Referred To Contact Diagnoses Stage 3 chronic kidney disease, unspecified whether stage 3a or 3b CKD (HCC) Procedures NM parathyroid scan planar only Marion Umana MD Phone: tel: fax: Referral ID Status Reason Start Date Expiration Date Visits Re quested Visits Authorized [id number] Closed 10/02/2022 03/31/2023 1 1 Encounter Details Date Type Department Care Team (Late st Contact Info) Description 10/02/2022 Outside Orders [facility] Central Scheduling [address] [place] [address] Marion Umana MD [address] [facility] [address] [place] [address] Stage 3 chronic kidney disease, unspecified whether [...] (HCC) documented in this encounter Care Teams Packaging Supervisor Relationship Specialty Start Date End Date Reji Castro MD [address] [place] [address] PCP - General Adolescent Medicine 10/02/22 documented as of this encounter
--- OUTSIDE RECORDS SUMMARY | 2025-05-24 09:14 | XMS_ITS | Encounter Summary ---
Author Organization [employer] ([place], [place], [place], [place]) Address [address] [place] [address] Care Team Providers Care Driver/Merchandiser Name Role Phone Reji Castro MD Primary Care Provider + [phone] Encounter Details Date Type Department Care Team (Late st Contact Info) Description 08/13/2021 Transcribed Document [facility] [place] Medicine [facility] [place] [address] ProviderDelvin MD [address] [place] [address] [phone] Social History Tobacco Use Types Packs/Day Years Used Date Smoking Tobacco: Never Assessed Comments Unknown Sex and Gender Information Value Date Recorded Sex Assigned at Not on file Legal Sex Female 4:32 PM CDT Gender Identity Not on file Sexual Orientation Not on file documented as of this encounter Miscellaneous Notes * [employer]ner Conversion Note - Historical ProviderMD - 08/13/2021 2:00 AM CDT Traffic Lieutenant Details Entered On: 08/13/2021 6:35 EDT Performed [...] on filedocumented in this encounter Care Teams Driver/Merchandiser Relationship Specialty Start Date End Date Reji Castro MD [address] [place] [address] PCP - General Adolescent Medicine 10/02/22 documented as of this encounter
--- OUTSIDE RECORDS SUMMARY | 2025-05-24 09:14 | XMS_ITS | Referral Summary ---
Author Organization [employer] ([place], [place], [place], [place]) Address [address] [place] [address] Care Team Providers Care Professional Soccer Player Name Role Phone Reji Castro MD Primary Care Provider [phone] Allergies Active Allergy Reactions Criticality Noted Date [...] Plan of Treatment Not on file Insurance [employer] Advance Directives For more information, please contact: [phone] Documents on File Type Date Recorded Patient Pile Header Expl anation Advance Directives and Livin g Will 10/05/2022 8:36 AM Care Teams Professional Soccer Player Relationship Specialty Start Date End Date Reji Castro MD [address] [place] [address] PCP - General Adolescent Medicine 10/02/22
--- OUTSIDE RECORDS SUMMARY | 2025-05-24 09:14 | XMS_ITS | Encounter Summary ---
Author Organization [employer] ([place], [place], [place], [place]) Address [address] [place] [address] Care Team Providers Care Customer Energy Specialist Name Role Phone Reji Castro MD Primary Care Provider + [phone] Encounter Details Date Type Department Care Team (Late st Contact Info) Description 08/27/2021 Transcribed Document [facility] [place] Family Medicine [facility] [place] [address] ProviderDelvin MD [address] [place] [phone] Social History Tobacco Use Types Packs/Day Years Used Date Smoking Tobacco: Never Assessed Comments Unknown Sex and Gender Information Value Date Recorded Sex Assigned at Not on file Legal Sex Female 4:32 PM CDT Gender Identity Not on file Sexual Orientation Not on file documented as of this encounter Miscellaneous Notes * Cerner Conversion Note - Historical ProviderMD - 08/27/2021 2:00 AM CDT Cage Operator Details Entered On: 08/27/2021 3:29 EDT Performed [...] Crushed/Liquid : No Pamela Miguel RN - 08/27/2021 3:29 EDT documented in this encounter Plan of Treatment Not on file documented as of this encounter Visit Diagnoses Not on filedocumented in this encounter Care Teams Customer Energy Specialist Relationship Specialty Start Date End Date Reji Castro MD [address] [place] [address] PCP - General Adolescent Medicine 10/02/22 documented as of this encounter
--- OUTSIDE RECORDS SUMMARY | 2025-05-24 09:14 | XMS_ITS | Encounter Summary ---
Author Organization [employer] ([place], [place], [place], [place]) Address [address] [place] [address] Care Team Providers Care Special Delivery Clerk Name Role Phone Reji Castro MD Primary Care Provider + [phone] Encounter Details Date Type Department Care Team (Late st Contact Info) Description 08/13/2021 Transcribed Document [facility] [place] [address] ProviderDelvin MD [address] [place] [phone] Social History Tobacco Use Types Packs/Day Years Used Date Smoking Tobacco: Never Assessed Comments Unknown Sex and Gender Information Value Date Recorded Sex Assigned at Not on file Legal Sex Female 4:32 PM CDT Gender Identity Not on file Sexual Orientation Not on file documented as of this encounter Miscellaneous Notes * Cerner Conversion Note - Historical ProviderMD - 08/13/2021 10:22 AM CDT Patient: [...] mg, 14 mL, 128 mL/Hr, IV Piggyback, [id number] Dextrose 50% injection: 12.5 Gram, IV Push, [...] Temp 97.9 (AUG 13 06:00) 97.9 (AUG 13:00) 98 (AUG 12 23:00) Mon HR 81 [...] clinical improvement time 35mins Electronically signed by Lanny, [facility] Conversion Parimutuel Ticket Seller Cerner at 03/09/2023 9:02 PM CDT documented in this encounter Plan of Treatment Not on file documented as of this encounter Visit Diagnoses Not on filedocumented in this encounter Care Teams Special Delivery Clerk Relationship Specialty Start Date End Date Reji Castro MD [address] [place] [address] PCP - General Adolescent Medicine 10/02/22 documented as of this encounter
--- OUTSIDE RECORDS SUMMARY | 2025-05-24 09:14 | XMS_ITS | Encounter Summary ---
Author Organization [employer] ([place], [place], [place], [place]) Address [address] [place] [address] Care Team Providers Care Correction Warden Name Role Phone Reji Castro MD Primary Care Provider + [phone] Encounter Details Date Type Department Care Team (Late st Contact Info) Description 08/18/2021 Transcribed Document [facility] [place] Family [place] [facility] [place] [address] ProviderDelvin MD [address] [place] [address] [phone] Social History Tobacco Use Types Packs/Day Years [...] her port could not be accessed. Her superintendent refuse disposal aspirated fluid from the port that was evidently purulent. I have not yet been able to track down that culture. After the aspiration she developed fever to 103, severe CHEUNG, myalgias and arthralgias. She was admitted to [facility]. She was in the hospital [...] PVE. 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 Integumentary: Warm, [place]. Neurologic: Alert, Oriented, No focal deficits. Psychiatric: Cooperative, Appropriate mood & affect. Review / Management Results review: Labs (Last four charted values) WBC 7.0 (AUG 18) 6.4 (AUG 17) 7.1 (SEP 24) 6.7 (SEP 23) HB L 7.7 (AUG 18) L 7.5 (AUG 17) L 7.5 (SEP 25) L 7.9 (SEP 24) HCT L 26.2 (AUG 18) L 25.4 (SEP 26) L 25.9 (SEP 25) L 26.7 (SEP 24) Plt 207 (AUG 18) 195 (SEP ) 197 (JUL 24) 210 (JUL 23) Na [...] length with patient Electronically signed by Lanny [facility] Conversion [employer] Developer Cerner at 03/09/2023 8:49 PM CDT documented in this encounter Plan of Treatment Not on file documented as of this encounter Visit Diagnoses Not on filedocumented in this encounter Care Teams Correction Warden Relationship Specialty Start Date End Date Reji Castro MD [address] [place] [address] PCP - General Adolescent Medicine 10/02/22 documented as of this encounter
--- OUTSIDE RECORDS SUMMARY | 2025-05-24 09:15 | XMS_ITS | Encounter Summary ---
Author Organization [employer] ([place], [place], [place], [place]) Address [address] [place] [address] Care Team Providers Care Compressor Station Engineer Name Role Phone Reij Castro MD Primary Care Provider + [phone] Encounter Details Date Type Department Care Team (Late st Contact Info) Description 08/13/2021 Transcribed Document [facility] [place] Family Medicine [address] [place] [address] ProviderDelvin MD [address] [place] [address] [phone] Social History Tobacco Use Types Packs/Day Years [...] On: 08/13/2021 10:20 EDT by Reina Tian, HOSPICE/HOME HEALTH AIDE Phone Call for Consults Consult Phone Call/Page Attempt : Other: BEATRIS Edward was on floor and was notified by Celina Wilder Rn about consult Consult Reason : paula cath inf., needing removal. Physician Requesting Consult : FAIZA YOUSSEF DO Physician Requested for Consult : NENA PEARSON MD-TATYANA Physician Covering for Consult : SHEBA CARTY PA Date and Time Call Returned : 08/14/2021 10:39 EDT Reina Tian, HOSPICE/HOME HEALTH AIDE - 08/13/2021 10:37 EDT Electronically signed by Lanny, [facility] Conversion Insurance Sales Associate Cerner at 03/09/2023 8:38 PM CDT documented in this encounter Plan of Treatment Not on file documented as of this encounter Visit Diagnoses Not on filedocumented in this encounter Care Teams Compressor Station Engineer Relationship Specialty Start Date End Date Reji Castro MD [address] [place] [address] PCP - General Adolescent Medicine 10/02/22 documented as of this encounter
--- OUTSIDE RECORDS SUMMARY | 2025-05-24 09:15 | XMS_ITS | Encounter Summary ---
Author Organization [facility] Address [address] [place] [address] Care Team Providers Care Warp Tester Name Role Phone Reji Castro MD Primary Care Provider [phone] Encounter Details Date Type Department Care Team (Late st Contact Info) Description 05/07/2025 Orders Only External Location [address] [place] [address] Provider, External Social History Tobacco Use Types [...] documented as of this encounter Care Teams Warp Tester Relationship Specialty Start Date End Date Reji Castro MD [address] [place] [address] PCP - General Internal Medicine 12/08/23 documented as of this encounter
--- OUTSIDE RECORDS SUMMARY | 2025-05-24 09:15 | XMS_ITS | Encounter Summary ---
Author Organization [employer] ([place], [place], [place], [place]) Address [address] [place] [address] Care Team Providers Care Paint Stockman Name Role Phone Reji Castro MD Primary Care Provider + [phone] Encounter Details Date Type Department Care Team (Late st Contact Info) Description 08/13/2021 Transcribed Document [facility] [place] [facility]ly [facility] [address] ProviderDelvin MD [address] [place] [phone] Social History Tobacco Use Types Packs/Day Years Used Date Smoking Tobacco: Never Assessed Comments Unknown Sex and Gender Information Value Date Recorded Sex Assigned at Not on file Legal Sex Female 4:32 PM CDT Gender Identity Not on file Sexual Orientation Not on file documented as of this encounter Miscellaneous Notes * Cerner Conversion Note - Delvin ProviderMD - 08/13/2021 9:32 AM CDT Patient: IRINA [...] Encounter/Past 24 Hours) Creatinine Level 1.60 mg/dL DC 08/13/2021 06:13 Bun/Creatinine 31.2 DC 08/13/2021 06:13 Est. CrCl: 61 mL/min Intake [...] questions. Thank you, Andrea Moraes, PharmD PGY1 Census Clerk Pager: [phone] documented in this encounter Plan of Treatment Not on file documented as of this encounter Visit Diagnoses Not on filedocumented in this encounter Care Teams Paint Stockman Relationship Specialty Start Date End Date Reji Castro MD [address] [place] [address] PCP - General Adolescent Medicine 10/02/22 documented as of this encounter
--- OUTSIDE RECORDS SUMMARY | 2025-05-24 09:15 | XMS_ITS | Encounter Summary ---
Author Organization [employer] ([place], [place], [place], [place]) Address [address] [place] [address] Care Team Providers Care Commercial Artist Name Role Phone Reji Castro MD Primary Care Provider [phone] Encounter Details Date Type Department Care Team (Late st Contact Info) Description 08/23/2021 Transcribed Document [facility] Radiology [address] [place] [address] Loren Solorzano MD [address] [place] [address] [place] [address] Social History Tobacco Use Types Packs/Day Years [...] cefTRIAXone: 2 Gram, 100 mL/Hr, IV Piggyback, [id number] diphenhydrAMINE: 25 mg, Oral, Q6H, PRN: Itching [...] Oral, BID cefTRIAXone 2 Gram, IV Piggyback, [id number] citalopram 20 mg tab 40 mg 2 [...] Bioprosthetic mitral valve replacement / SNOMED CT 611328276 / Confirmed Chronic kidney disease / SNOMED CT 9720010087 / Confirmed COPD - Chronic obstructive pulmonary disease / SNOMED CT 710246943 / Confirmed History of obstructive sleep apnea / IMO [id number] / Confirmed HLD - Hyperlipidemia / SNOMED CT 403479721 / Confirmed HTN - Hypertension / SNOMED CT 2392071584 / Confirmed Canceled: Atrial fibrillation / SNOMED CT 38386963, Active Problems (25) AIHA (autoimmune hemolytic anemia) [...] 26.0 \ Radiology Results (Last 48 hours) [id number] -- 08/11/2021 21:21 CR Chest 1 Vw [...] 23) L 7.5 (AUG 22) L 7.4 (SEP 30) L 7.7 (SEP 29) HCT L 26.0 (AUG 23) L 25.6 (AUG 22) L 25.2 (JUL 30) L 25.9 (SEP 29) Plt 181 (AUG 23) 181 (AUG 22) 188 (SEP 30) 210 (SEP 29) Na 139 (AUG 23) 138 (AUG 22) 138 (JUL 30) 138 (SEP 29) K 3.8 (AUG 23) 3.7 (AUG [...] Hold home meds SSI #Depression Celexa #Pain [place] 10 mg every 6 hours as needed CODE STATUS. Full code Dispo: Given patient with history of multiple transfusion we will keep patient in the hospital on heparin drip and Coumadin till INR therapeutic need IV abx, at least until 09/08. Discussed with case packer. and pharmcy Time spent 25 minutes documented in this encounter Plan of Treatment Not on file documented as of this encounter Visit Diagnoses Not on filedocumented in this encounter Care Teams Commercial Artist Relationship Specialty Start Date End Date Reji Castro MD [address] [place] [address] PCP - General Adolescent Medicine 10/02/22 documented as of this encounter
--- OUTSIDE RECORDS SUMMARY | 2025-05-24 09:15 | XMS_ITS | Encounter Summary ---
Author Organization [facility] Address [address] [place] [address] Care Team Providers Care Regional Rehabilitation Director Name Role Phone Reji Castro MD Primary Care Provider [phone] Reason for Referral * Transplant (Routine) - Denied Specialty Diagnoses / Procedures Referred By Contac t Referred To Contact Transplant Diagnoses Cardiomyopathy, unspecified type (CMS/HCC) Neil Caldwell MD [facility] [place] [address] Phone: tel: fax: [facility] [address] [facility] 1st [address] [place] [address] Phone: tel: fax: Referral ID Status Reason Start Date Expiration Date V isits Requested Visits Authorized [id number] Denied Specialty Services Required 05/17/2025 11/16/2026 999 0 Encounter Details Date Type Department Care Team (Late st Contact Info) Description 05/17/2025 Telephone [facility] [address] [place] [address] Alysha Maloney [place] [phone] Social History Tobacco Use Types Packs/Day Years [...] place to sleep or slept in a assisted (including now)? No 11/19/2023 Utilities Answer Date [...] as of this encounter Miscellaneous Notes * Telephone Encounter - Alysha Maloney - 05/17/2025 2:55 PM EDT Referral came from Psychiatric, Dr. Regis Caldwell to the [facility]. Requested [facility] cancel the Cardiology referral since I will add TXP referral. Records saved in Media by [facility]. I will request images from [facility] Notified [facility] of new referral and TXP [place]:[facility] of patient assignment. Will proceed with scheduling once insurance is verified for [place] and TXP coverage. documented in this encounter Plan of Treatment Scheduled Referrals Name Type Priority Associated Diagnoses Orde r Schedule Ambulatory referral to Solid Organ Transplant Team Outpatient Referral Routine Cardiomyopathy, unspecified type (CMS/HCC) Ordered: 05/17/2025 documented as of this encounter Visit Diagnoses Diagnosis Cardiomyopathy, unspecified type (CMS/HCC)- Primary documented in this encounter Additional Health Concerns Assessment Noted Time A fall risk assessment has been complete d for the patient 12/08/2023 10:42 AM EST A Body Mass Index follow-up plan has been documented for the patient 01/29/2025 12:26 PM EDT documented as of this encounter Care Teams Regional Rehabilitation Director Relationship Specialty Start Date End Date Reji Castro MD [address] [place] [address] PCP - General Internal Medicine 12/08/23 documented as of this encounter
--- OUTSIDE RECORDS SUMMARY | 2025-05-24 09:15 | XMS_ITS | Encounter Summary ---
Author Organization [employer] ([place], [place], [place], [place]) Address [address] [place] [address] Care Team Providers Care Preventive Maintenance Engineer Name Role Phone Reji Castro MD Primary Care Provider + [phone] Encounter Details Date Type Department Care Team (Late st Contact Info) Description 08/17/[address] [facility] [place] [facility] [place] [address] ProviderDelvin MD [address] [place] [address] [id number] Social History Tobacco Use Types Packs/Day Years Used Date Smoking Tobacco: Never Assessed Comments Unknown Sex and Gender Information Value Date Recorded Sex Assigned at Not on file Legal Sex Female 4:32 PM CDT Gender Identity Not on file Sexual Orientation Not on file documented as of this encounter Miscellaneous Notes * Cerner Conversion Note - Delvin ProviderMD - 08/17/2021 3:29 PM CDT Patient: IRINA [...] mg, 14 mL, 128 mL/Hr, IV Piggyback, [id number]. diphenhydrAMINE: 50 mg, IV Push, On-CALL, PRN: [...] 14) 5.5 (AUG 13) HB L 7.5 (SEP 26) L 7.5 (SEP 25) L 7.9 (SEP [...] (SEP 22) Cl 104 (AUG 17) 106 (SEP 25) 104 (JUL 24) 102 (JUL 22) CO2 27 (AUG 17) 25 (JUL 25) 27 (JUL 24) 29 (AUG 13) BUN 18 (AUG 17) H 23 (JUL 25) H 28 (JUL 24) H 35 (AUG 13) Cr H 1.20 (AUG 17) H 1.40 (AUG 16) H 1.80 (JUL 24) H 1.80 (AUG 13) Glu R H 126 (AUG 17) H 112 (JUL 25) H 139 (JUL 24) H 114 (AUG 13) Ca 8.9 (AUG 17) 9.5 (SEP 25) 9.4 (JUL 24) 9.1 (JUL 22) Lactic .93 (SEP 21) L .73 (AUG 11) PT H 14.6 (AUG 17) H 17.2 (JUL 25) H 18.2 (JUL 24) H 17.2 (JUL 23) INR H 1.4 (AUG 17) H 1.7 (JUL 25) H 1.8 (JUL 24) H 1.7 (JUL 23) PTT H 39.6 (JUL 20) AST 19 [...] (SEP 21) ALB 3.5 (SEP 24) 3.8 (AUG 13) 3.9 [...] questions. Thank you, Andrea Moraes, PharmD PGY1 Testing Director Pager: [phone], Ext. [phone] documented in this encounter Plan of Treatment Not on file documented as of this encounter Visit Diagnoses Not on filedocumented in this encounter Care Teams Preventive Maintenance Engineer Relationship Specialty Start Date End Date Reji Castro MD [address] [place] [id number] PCP - General Adolescent Medicine 10/02/22 documented as of this encounter
--- OUTSIDE RECORDS SUMMARY | 2025-05-24 09:15 | XMS_ITS | Encounter Summary ---
Author Organization [employer] ([place], [place], [place], [place]) Address [address] [place] [address] Care Team Providers Care Shower Enclosure Installer Name Role Phone Reji Castro MD Primary Care Provider + [phone] Encounter Details Date Type Department Care Team (Late st Contact Info) Description 08/17/2021 Transcribed Document [facility] [place] [facility] [place] [address] ProviderDelvin MD [address] [place] [address] [id number] Social History Tobacco Use Types Packs/Day Years [...] 17:) 97.9 (AUG 17:) 98 (AUG 16 13:43) Apical HR 83 (AUG 16 21:41) 83 (AUG 16 21:41) 83 (AUG 16 21:41) Mon HR 68 (AUG 17:) 68 (AUG 17:) 93 (AUG 17 03:45) Resp Rate 16 (AUG 17:15) 16 (AUG 16 13:43) 16 (AUG 16 13:43) SBP 106 (AUG 17 11:15) 100 (AUG 17 03:45) 129 (AUG 16 13:43) DBP 64 (AUG 17:15) L 55 (AUG 17 05:21) 75 (AUG 16 18:52) MAP 78 (AUG 17 11:15) 74 (AUG 17 05:21) 91 (AUG 16 18:52) SpO2 L 90 (AUG 17:) L 90 (AUG 17:15) 96 (AUG 17 05:21) General: No acute [...] 197 (SEP 24) 210 (SEP 23) 206 (JUL 22) Na L 135 (AUG 17) 137 (SEP 25) 137 (JUL 24) L 135 (JUL 22) K 4.4 (AUG 17) 4.4 (SEP 25) 4.4 (JUL 24) 4.2 (JUL 22) Cl 104 (AUG 17) 106 (SEP 25) 104 (SEP 24) 102 (SEP 22) CO2 27 (SEP ) 25 (SEP 25) 27 (SEP 24) 29 (SEP 22) BUN 18 (AUG 17) H 23 (AUG 16) H 28 (JUL 24) H 35 (JUL 22) Cr H 1.20 (AUG 17) H 1.40 (JUL 25) H 1.80 (JUL 24) H 1.80 (SEP 22) Glu R H 126 (AUG 17) H 112 (JUL 25) H 139 (JUL 24) H 114 (JUL 22) Ca 8.9 (AUG 17) 9.5 (JUL 25) 9.4 (JUL 24) 9.1 (JUL 22) Lactic .93 (AUG 12) L .73 (JUL 20) PT H 14.6 [...] on filedocumented in this encounter Care Teams Shower Enclosure Installer Relationship Specialty Start Date End Date Reji Castro MD [address] [place] [address] PCP - General Adolescent Medicine 10/02/22 documented as of this encounter
--- OUTSIDE RECORDS SUMMARY | 2025-05-24 09:15 | XMS_ITS | Encounter Summary ---
Author Organization [employer] ([place], [place], [place], [place]) Address [address] [place] [address] Care Team Providers Care Sweet Dough Mixer Name Role Phone Reji Castro MD Primary Care Provider + [phone] Encounter Details Date Type Department Care Team (Late st Contact Info) Description 08/23/2021 Transcribed Document [facility] [place] [address] ProviderDelvin MD [address] [place] [address] [phone] Social History Tobacco Use Types Packs/Day Years Used Date Smoking Tobacco: Never Assessed Comments Unknown Sex and Gender Information Value Date Recorded Sex Assigned at Not on file Legal Sex Female 4:32 PM CDT Gender Identity Not on file Sexual Orientation Not on file documented as of this encounter Miscellaneous Notes * Cerner Conversion Note - Historical ProviderMD - 08/23/2021 2:00 AM CDT Stockroom Keeper Details Entered On: 08/23/2021 2:15 EDT Performed On: 08/23/2021 2:00 EDT by Cecilia Lai, Customer Manager-Student Nurse Order Details Transport Mode Order Detail : Wheelchair Isolation Precautions Order Detail : Standard Precautions Order Detail : 0 IV Order Detail : 1 Oxygen Order Detail : 0 Lift/Transfer : Independent Central Line Order Detail : Yes Room Service : Appropriate Arterial Line : No Patient Needs Meds Crushed/Liquid : No Cecilia Lai, Customer Manager-Student Nurse - 08/23/2021 2:15 EDT documented in this encounter Plan of Treatment Not on file documented as of this encounter Visit Diagnoses Not on filedocumented in this encounter Care Teams Sweet Dough Mixer Relationship Specialty Start Date End Date Reji Castro MD [address] [place] [id number] PCP - General Adolescent Medicine 10/02/22 documented as of this encounter
--- OUTSIDE RECORDS SUMMARY | 2025-05-24 09:15 | XMS_ITS | Encounter Summary ---
Author Organization [employer] ([place], [place], [place], [place]) Address [address] [place] [address] Care Team Providers Care Beater Room Helper Name Role Phone Reji Castro MD Primary Care Provider + [phone] Encounter Details Date Type Department Care Team (Late st Contact Info) Description 08/23/2021 Transcribed Document [facility] [place] [facility] [address] ProviderDelvin MD [address] [place] [address] [phone] Social History Tobacco Use Types Packs/Day Years [...] cefTRIAXone: 2 Gram, 100 mL/Hr, IV Piggyback, [id number] diphenhydrAMINE: 25 mg, Oral, Q6H, PRN: Itching [...] Oral, BID cefTRIAXone 2 Gram, IV Piggyback, [id number] citalopram 20 mg tab 40 mg 2 [...] Bioprosthetic mitral valve replacement / SNOMED CT 406526539 / Confirmed Chronic kidney disease / SNOMED CT 2543377853 / Confirmed COPD - Chronic obstructive pulmonary disease / SNOMED CT 478559987 / Confirmed History of obstructive sleep apnea / IMO 87047311 / Confirmed HLD - Hyperlipidemia / SNOMED CT 572757163 / Confirmed HTN - Hypertension / SNOMED CT 6230910507 / Confirmed Canceled: Atrial fibrillation / SNOMED CT 84354424, Active Problems (25) AIHA (autoimmune hemolytic anemia) [...] 06:20) 97.7 (AUG 23 06:20) 98.1 (AUG 22:00) Apical HR 75 (AUG [...] L 93 (AUG 23 06:20) 100 (AUG 22:00) General: No acute distress. Eye: Extraocular movements [...] GFR adjust medications. Electronically signed by Lanny, [facility] Conversion Evp Chief Exploration Officer Cerner at 03/09/2023 8:48 PM CDT documented in this encounter Plan of Treatment Not on file documented as of this encounter Visit Diagnoses Not on filedocumented in this encounter Care Teams Beater Room Helper Relationship Specialty Start Date End Date Reji Castro MD [address] [place] [address] PCP - General Adolescent Medicine 10/02/22 documented as of this encounter
--- OUTSIDE RECORDS SUMMARY | 2025-05-24 09:15 | XMS_ITS | Encounter Summary ---
Author Organization [employer] ([place], [place], [place], [place]) Address [address] [place] [address] Care Team Providers Care Dairy Farmworker Name Role Phone Reji Castro MD Primary Care Provider [phone] Encounter Details Date Type Department Care Team (Late st Contact Info) Description 08/17/2021 Transcribed Document [facility] [place] [facility] [place] [address] ProviderDelvin MD [address] [place], [place] [phone] Social History Tobacco Use Types Packs/Day Years Used Date Smoking Tobacco: Never Assessed Comments Unknown Sex and Gender Information Value Date Recorded Sex Assigned at Not on file Legal Sex Female 4:32 PM CDT Gender Identity Not on file Sexual Orientation Not on file documented as of this encounter Miscellaneous Notes * Cerner Conversion Note - Historical ProviderMD - 08/17/2021 3:29 PM CDT Vital Measurements Entered On: 08/17/2021 15:29 EDT Performed On: 08/17/2021 15:29 EDT by Vivienne Crow Vital Measurements Temperature Source : Oral Temperature Mode : Silviohrenheit Vivienne Crow - 08/17/2021 15:29 EDT documented in this encounter Plan of Treatment Not on file documented as of this encounter Visit Diagnoses Not on filedocumented in this encounter Care Teams Dairy Farmworker Relationship Specialty Start Date End Date Reji Castro MD [address] [place] [address] PCP - General Adolescent Medicine 10/02/22 documented as of this encounter
--- OUTSIDE RECORDS SUMMARY | 2025-05-24 09:15 | XMS_ITS | Encounter Summary ---
Author Organization [facility] Address [address] [place] [address] Care Team Providers Care Pattern Grader Name Role Phone Reji Castro MD Primary Care Provider [phone] Encounter Details Date Type Department Care Team (Late st Contact Info) Description 05/18/2025 Telephone [facility] [place] [address] [place] [phone] Alysha Maloney [place] [id number] Social History Tobacco Use Types Packs/Day Years [...] * Telephone Encounter - Alysha Maloney - 05/18/2025 10:03 AM EDT Called referring Provider, Dr. Caldwell, . Notified them patient is out of network for TXP consideration at our facility but could be referred to or [facility]. They made note in her chart and will notify the referring provider. --- Notified [facility] patient is OON since the referral came thru their office. Let them know I would notifythe referring office. documented in this encounter Plan of Treatment [...] documented as of this encounter Care Teams Pattern Grader Relationship Specialty Start Date End Date Reji Castro MD [address] [place] [address] PCP - General Internal Medicine 12/08/23 documented as of this encounter
--- OUTSIDE RECORDS SUMMARY | 2025-05-24 09:15 | XMS_ITS | Encounter Summary ---
Author Organization [employer] ([place], [place], [place], [place]) Address [address] [place] [address] Care Team Providers Care Polishing Pad Mounter Name Role Phone Reji Castro MD Primary Care Provider + [phone] Encounter Details Date Type Department Care Team (Late st Contact Info) Description 08/23/2021 Transcribed Document [facility] [address] [place] [address] ProviderDelvin MD [address] [place] [address] [id number] Social History Tobacco Use Types Packs/Day Years Used Date Smoking Tobacco: Never Assessed Comments Unknown Sex and Gender Information Value Date Recorded Sex Assigned at Not on file Legal Sex Female 4:32 PM CDT Gender Identity Not on file Sexual Orientation Not on file documented as of this encounter Miscellaneous Notes * Cerner Conversion Note - Historical ProviderMD - 08/23/2021 5:00 PM CDT Chart Check - Review Order Profile Entered On: 08/23/2021 18:48 EDT Performed On: 08/23/2021 17:00 EDT by BRISEIDA PLASCENCIA LPN Chart Check Powerplans Initiated/Discontinued as Appropriate : Yes All Active Orders Reviewed : Yes BRISEIDA PLASCENCIA LPN - 08/23/2021 18:47 EDT documented in this encounter Plan of Treatment Not on file documented as of this encounter Visit Diagnoses Not on filedocumented in this encounter Care Teams Polishing Pad Mounter Relationship Specialty Start Date End Date Reji Castro MD [address] [place] [address] PCP - General Adolescent Medicine 10/02/22 documented as of this encounter
--- OUTSIDE RECORDS SUMMARY | 2025-05-24 09:15 | XMS_ITS | Encounter Summary ---
Author Organization [employer] ([place], [place], [place], [place]) Address [address] [place] [address] Care Team Providers Care Community Engagement Specialist Name Role Phone Reji Castro MD Primary Care Provider + [phone] Encounter Details Date Type Department Care Team (Late st Contact Info) Description 08/17/2021 Transcribed Document [facility] [place] [address] [place] [address] ProviderDelvin MD [address] [place] [address] [phone] Social History Tobacco Use Types Packs/Day Years Used Date Smoking Tobacco: Never Assessed Comments Unknown Sex and Gender Information Value Date Recorded Sex Assigned at Not on file Legal Sex Female 4:32 PM CDT Gender Identity Not on file Sexual Orientation Not on file documented as of this encounter Miscellaneous Notes * Cerner Conversion Note - Historical ProviderMD - 08/17/2021 5:00 PM CDT Chart Check - Review Order Profile Entered On: 08/17/2021 15:30 EDT Performed On: 08/17/2021 17:00 EDT by Vivienne Crow Chart Check Powerplans Initiated/Discontinued as Appropriate : Yes All Active Orders Reviewed : Yes Vivienne Crow - 08/17/2021 15:30 EDT Electronically signed by [employer] Conversion Production Broaching Machine Operator Cerner at 03/09/2023 8:56 PM CDT documented in this encounter Plan of Treatment Not on file documented as of this encounter Visit Diagnoses Not on filedocumented in this encounter Care Teams Community Engagement Specialist Relationship Specialty Start Date End Date Reji Castro MD [address] [place] [address] PCP - General Adolescent Medicine 10/02/22 documented as of this encounter
--- OUTSIDE RECORDS SUMMARY | 2025-05-24 09:15 | XMS_ITS | Encounter Summary ---
Author Organization [employer] ([place], [place], [place], [place]) Address [address] [place] [address] Care Team Providers Care Cdl Service Technician Name Role Phone Reji Castro MD Primary Care Provider + [phone] Encounter Details Date Type Department Care Team (Late st Contact Info) Description 08/17/2021 Transcribed Document [facility] [place] [address] [place] [address] ProviderDelvin MD [address] [place] [address] 612241 Social History Tobacco Use Types Packs/Day Years [...] Phyllis Quiros Lpn - 08/17/2021 6:06 EDT documented in this encounter Plan of Treatment Not on file documented as of this encounter Visit Diagnoses Not on filedocumented in this encounter Care Teams Cdl Service Technician Relationship Specialty Start Date End Date Reji Castro MD [address] [place] [address] PCP - General Adolescent Medicine 10/02/22 documented as of this encounter
--- OUTSIDE RECORDS SUMMARY | 2025-05-24 09:15 | XMS_ITS ---
Author Organization [facility] Address [address] [place] [address] Care Team Providers Care Rayon Tester Name Role Phone Reji Castro MD Primary Care Provider Transplant Episode Heart Candidate [facility] ([place], [place]) - [facility] Referred on 05/17/2025 Marked as Ineligible on 05/18/2025 Reason: Financial/Insurance Complications Heart CoordinatorMargarita Bill RN Fax: N/A Email: N/A Care Team Name Role Phone Fax Email Margarita Bill RN Senior Sales Operations Manager [phone] N/A N/A Purnima Mathur Hardboard Coating Machine Operator [phone] N/A N/A Alysha Disla Insurance Adjuster N/A N/A N/A Neil Caldwell MD Referring Physician [phone] N/A Events Pre-Transplant Referred: 05/17/2025
--- OUTSIDE RECORDS SUMMARY | 2025-05-24 09:15 | XMS_ITS | Encounter Summary ---
Author Organization [email or web address] ([place], [place], [place], [place]) Address [address] [place] [address] Care Team Providers Care Circus Laborer Name Role Phone Reji Castro MD Primary Care Provider + [phone] Encounter Details Date Type Department Care Team (Late st Contact Info) Description 08/13/2021 Transcribed Document [facility] [place] [address] [place] [address] ProviderDelvin MD [address] [place] [id number] Social History Tobacco Use Types Packs/Day Years Used Date Smoking Tobacco: Never Assessed Comments Unknown Sex and Gender Information Value Date Recorded Sex Assigned at Not on file Legal Sex Female 4:32 PM CDT Gender Identity Not on file Sexual Orientation Not on file documented as of this encounter Miscellaneous Notes * Cerner Conversion Note - Historical ProviderMD - 08/13/2021 5:00 PM CDT Chart [...] filedocumented in this encounter Care Teams Circus Laborer Relationship Specialty Start Date End Date Reji Castro MD [address] [place] [address] PCP - General Adolescent Medicine 10/02/22 documented as of this encounter
--- OUTSIDE RECORDS SUMMARY | 2025-05-24 09:15 | XMS_ITS | Encounter Summary ---
Author Organization [facility] Address [address] [place] [address] Care Team Providers Care Clerical And Administrative Workers Name Role Phone Reji Castro MD Primary Care Provider [phone] Reason for Referral * Consultation (Routine) - Authorized Specialty Diagnoses / Procedures Referred By Contac t Referred To Contact Nephrology Diagnoses Stage 3b chronic kidney disease (CMS/HCC) Reji Castro MD [address] [place] [address] Phone: tel: fax: [facility] Nephrology, Bone & Mineral Metabolism [address] [facility] [place] [address] Phone: tel: fax: Referral ID Status Reason Start Date Expiration Date Visits Requested Visits Authorized [id number] Authorized Specialty Services Required 05/23/2025 11/22/2026 1 1 Encounter Details Date Type Department Care Team ([facility] st Contact Info) Description 05/23/2025 Community [facility] [address] [place] [address] Reji Castro MD [address] [place] [address] Stage 3b chronic kidney disease (CMS/HCC) (Primary Dx) Social History Tobacco Use Types [...] place to sleep or slept in a jail (including now)? No 11/19/2023 Utilities Answer Date [...] as of this encounter Plan of Treatment Scheduled Referrals Name Type Priority Associated Diagnoses Order Schedule Ambulatory referral to Nephrology Outpatient Referral Routine Stage 3b chronic kidney disease (CMS/HCC) Ordered: 05/23/2025 documented as of this encounter Visit Diagnoses Diagnosis Stage 3b chronic kidney disease (CMS/HCC)- Primary documented in this encounter Additional Health Concerns Assessment Noted Time A fall risk assessment has been complete d for the patient 12/08/2023 10:42 AM EST A Body Mass Index follow-up plan has been documented for the patient 01/29/2025 12:26 PM EDT documented as of this encounter Care Teams Clerical And Administrative Workers Relationship Specialty Start Date End Date Reji Castro MD [address] [place] [address] PCP - General Internal Medicine 12/08/23 documented as of this encounter
--- OUTSIDE RECORDS SUMMARY | 2025-05-24 09:15 | XMS_ITS | Encounter Summary ---
Author Organization [facility] Address [address] [place] [address] Care Team Providers Care Food Mobile Driver Name Role Phone Reji Castro MD Primary Care Provider [phone] Encounter Details Date Type Department Care Team (Late st Contact Info) Description 05/07/2025 Orders Only External Location [address] [place] [address] Provider, External Social History Tobacco Use Types [...] place to sleep or slept in a group home (including now)? No 11/19/2023 Utilities Answer [...] documented as of this encounter Care Teams Food Mobile Driver Relationship Specialty Start Date End Date Reji Castro MD [address] [place] [address] PCP - General Internal Medicine 12/08/23 documented as of this encounter
--- OUTSIDE RECORDS SUMMARY | 2025-05-24 09:15 | XMS_ITS | Encounter Summary ---
Author Organization [employer] ([place], [place], [place], [place]) Address [address] [place] [address] Care Team Providers Care Top Screw Name Role Phone Reji Castro MD Primary Care Provider + [phone] Encounter Details Date Type Department Care Team (Late st Contact Info) Description 08/17/2021 Transcribed Document [facility] [place] [facility] [place] [address] ProviderDelvin MD [address] [place] [phone] Social History Tobacco Use Types Packs/Day Years [...] her port could not be accessed. Her machine set up operator paper goods aspirated fluid from the port that was evidently purulent. I have not yet been able to track down that culture. After the aspiration she developed fever to 103, severe CHEUNG, myalgias and arthralgias. She was admitted to [facility]. She was in the hospital for 10 [...] and told to report to [facility] because she had + blood cutures concerning for an infected portacath +/- PVE. 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 Integumentary: Warm, [place]. Neurologic: Alert, Oriented, No focal deficits. Psychiatric: [...] 24) L 27.2 (SEP 23) Plt 195 (AUG 17) 197 (SEP 24) 210 (SEP 23) 206 (JUL 22) Na L 135 (AUG 17) 137 (JUL 25) 137 (JUL 24) L 135 (SEP 22) K 4.4 [...] 17) H 112 (SEP 25) H 139 (JUL 24) H 114 (JUL 22) Ca 8.9 (AUG 17) 9.5 (SEP 25) 9.4 (SEP 24) 9.1 (AUG 13) Lactic .93 (AUG 12) L .73 (SEP 20) PT H 14.6 (AUG 17) H 17.2 (AUG 16) H 18.2 (AUG 15) H 17.2 (AUG 14) INR H 1.4 (AUG 17) H 1.7 (AUG 16) H 1.8 (JUL 24) H 1.7 (AUG 14) PTT H 39.6 (AUG 11) AST 19 (AUG 15) 18 (SEP ) 17 (AUG 13) 16 (AUG 12) ALT [...] and cmp; routine care of paula cath documented in this encounter Plan of Treatment Not on file documented as of this encounter Visit Diagnoses Not on filedocumented in this encounter Care Teams Top Screw Relationship Specialty Start Date End Date Reji Castro MD [address] [place] [address] PCP - General Adolescent Medicine 10/02/22 documented as of this encounter
--- OUTSIDE RECORDS SUMMARY | 2025-05-24 09:15 | XMS_ITS | Clinical Summary ---
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) 3322329 (SNOMED CT) Active 0 Lisa Torres Benign essential hypertension Medications Medication Instructions Start Date Stop Date Generic Name [facility] Provider CEFTRIAXONE SODIUM 1 GM SOLR 2gm IV Q 24hrs through 09/08 [facility] [phone] ceftriaxone [id number] [place] LEVOTHYROXINE SODIUM 25 MCG TABS TAKE 1 TABLET BY MOUTH DAILY levothyroxine 42901375575 Eblkis Mattson BUMETANIDE 2 MG TABS bumetanide 59033767894 Belkis Mattson DEXILANT 60 MG CPDR dexlansoprazole 13188087034 Belkis Mattson OLOPATADINE HCL 0.2 % SOLN olopatadine 59534663760 Belkis Mattson ALPRAZOLAM 0.5 MG TABS alprazolam 42401458932 Belkis Mattson WARFARIN SODIUM 4 MG TABS warfarin 76092289477 Belkis Mattson SPIRONOLACTONE 25 MG TABS TAKE 1 TABLET BY MOUTH ONCE A DAY. spironolactone 57815218714 Belkis Mattson FOLIC ACID 1 MG TABS TAKE 1 TABLET BY MOUTH ONCE A DAY. folic acid 12376282203 Belkis Mattson RAMY ASPIRIN EC LOW DOSE 81 MG TBEC aspirin 49534451544 Belkis Mattson CELEXA 40 MG TABS citalopram 98142148073 Belkis Mattson docusate sodium unspecified unspecified docusate sodium 56673417800 Angelita Mattson FAMOTIDINE 20 MG TABS famotidine 30711625257 Belkis Mattson PERCOCET 10-325 MG TABS oxycodone-acetam i nophen 39332790777 Belkis Mattson TOPROL XL 25 MG [id number] metoprolol succinate 72363384767 eBlkis Mattson CEFTRIAXONE SODIUM 1 GM SOLR 2gm IV Q 24hrs through 09/08 [facility] HH [phone] ceftriaxone 11634810276 [facility] Medications Administered No information available. Allergies, Adverse [...]
[2025-05-24 09:36] LABS: Hematocrit 31.2 % (37.0-47.0); Hemoglobin 9.6 g/dL (12.2-16.2); Immature Granulocytes % 0.5 %; Mean Corpuscular HGB Conc 30.8 g/dL (31.8-35.4); Mean Corpuscular Hemoglobin 26.7 pg (27.0-31.2); Mean Corpuscular Volume 86.9 fl (81-99); Nucleated Red Blood Cells % 0 %; Platelet Count 201 K/mm3 (142-424); Red Blood Count 3.59 M/mm3 (4.20-5.40); Red Cell Distribution Width-SD 66.9 fL; White Blood Count 9.7 K/mm3 (4.8-10.8)
[2025-05-24 09:41] LABS: Microscopic, Urine URINE MICROSCOPIC (MICROSCOPIC)
[2025-05-24 09:49] LABS: Bilirubin,Urine Negative (Negative); Color,Urine YELLOW (Yellow); Glucose,Urine (UA) Negative (Negative); Ketones,Urine Negative (Negative); Leukocyte Esterase,Urine Negative (Negative); PH,Urine 6.5 (5.0-8.5); Protein,Urine Negative (Negative); Specific Gravity, Urine 1.010 (1.005-1.030); Urobilinogen,Urine 0.2 EU/dl (0.2)
[2025-05-24 09:52] LABS: INR 2.74 (0.9-1.1); Prothrombin Time 28.2 seconds (10.1-12.5)
--- OUTSIDE RECORDS SUMMARY | 2025-05-24 10:14 | XMS_ITS | CCD ---
Author Organization Unknown Care Team Providers Care Blending Tank Tender Helper Name Role Phone Non Engaged, [facility] Primary Care Provider Unav ailable Unavailable Chronic Care Management Unavaila ble Summary Purpose DataExchange Insurance Providers Payer name Policy type / Coverage type Covered republican ID Effective Begin Date Effective End Date [facility] [id number] Unknown Unknown Family History Family History data not found Medication Administered No Medication Administered data Reason For Visit No Reason For Visit data Medical Equipment No Medical Equipment data Advance Directives No Advance Directive data
--- OUTSIDE RECORDS SUMMARY | 2025-05-24 10:15 | XMS_ITS | CCD ---
Author Organization Unknown Care Team Providers Care Flat Breakdown Processor Name Role Phone Non Engaged, [facility] Primary Care Provider Unav ailable Unavailable Chronic Care Management Unavaila ble Summary Purpose DataExchange Insurance Providers Payer name Policy type / Coverage type Covered libertarian ID Effective Begin Date Effective End Date [facility] [id number] Unknown Unknown Family History Family History data not found Medication Administered No Medication Administered data Reason For Visit No Reason For Visit data Medical Equipment No Medical Equipment data Advance Directives No Advance Directive data
[2025-05-24 10:17] LABS: Total Cells Counted 100
[2025-05-24 10:18] LABS: Anisocytosis 2+; RBC Morphology Normal
[2025-05-24 10:20] LABS: Bacteria,Urine Trace /lpf; Squamous Epithelial Cell,Urine Occasional #/hpf (0-5); WBC,Urine Occasional #/hpf (0-3)
[2025-05-24] MEDS: SODIUM CHLORIDE 0.9% 10ML FLUSH SYRINGE 10 ML IV (10:45)
[2025-05-24 11:23] LABS: Iron 99 ug/dL (37-170)
[2025-05-24 11:33] LABS: Total Iron Binding Capacity 375 ug/dL (265-497)
[2025-05-24 11:59] LABS: Ferritin 413 ng/ml (11.1-264)
== END 2025-05-24 10:50 | disposition home or self-care (01) ==
LOC: INF 09:08
PROVIDERS: PCP Internal Medicine Adolescent Medicine; Visit Provider Internal Medicine Medical Oncology
DX: K27.9 Peptic ulcer, site unspecified, unspecified as acute or chronic, without hemorrhage or perforation (principal); K92.2 Gastrointestinal hemorrhage, unspecified; R29.6 Repeated falls; R41.89 Other symptoms and signs involving cognitive functions and awareness
CPT/HCPCS: 36591; 81001; 82728; 83540; 83550; 85007; 85025; 85027; 85610; J1642

== ENCOUNTER 2025-05-24 10:47 | Outpatient (CLI) | payer MEDICARE, SELFPAY ==
--- NOTE | 2025-05-24 10:30 | CA_ITS ---
FINAL REPORT TECHNIQUE: Graded compression, spectral analysis and ultrasound images of the venous system of the upper extremity were obtained. CLINICAL HISTORY: Left arm pain x 5 days, COMPARISON: None FINDINGS: There is extensive deep venous thrombosis, with complete thrombosis of the left internal jugular vein. There is partial thrombosis involving the left subclavian vein, and axillary vein as well as the proximal brachial vein. IMPRESSION: Extensive venous thrombosis of the left upper extremity as described above. These results were called by the molecular technologist to Dr. Pro's office 05/24/2025 at approximately 11 AM. The patient returned to the physician's office. Reviewed, Interpreted and Dictated by Urbano Gracia MD Transcribed by Luanne Castaneda Authenticated and [facility]
--- OUTSIDE RECORDS SUMMARY | 2025-05-24 10:51 | XMS_ITS | Encounter Summary ---
Author Organization [employer] ([place], [place], [place], [place]) Address [address] [place] [address] Care Team Providers Care Director East Coast Sales Name Role Phone Reji Castro MD Primary Care Provider + [phone] Encounter Details Date Type Department Care Team (Late st Contact Info) Description 08/20/2021 Transcribed Document [facility] [place] [facility] [address] ProviderDelvin MD [address] [place] [address] [phone] Social History Tobacco Use Types Packs/Day Years [...] 13:33 EDT by MADINA LOVETT RN - Hairspring TruerIndustrial Painter Progress Note Discharge Arrangements : Patient Post-Acute [...] Rounds? : Yes MADINA LOVETT RN - Hairspring Truer - 08/20/2021 13:33 EDT Narrative Progress Note Narrative Progress Note : RRS Low Boost 5 Day 07/30 Patient was admitted for staph infection and port removal. She had a new port placed on 08/19. Patient needs to remain inpatient until her coumadin is at a therapeutic level per at [facility]. Patient will need IV rocephin until 09/08. Patient will need home health and says she has used [facility] in the past. CM will [...] is at a therapeutic level per at [facility]. Waiting on culture results for final abx plan. May need IV abx at home via port. Patient will need home health and lvies in [place]. [facility] home [facility] is a possibility. MADINA LOVETT RN - Hairspring Truer - 08/19/21 15:40:22 RRS Low Boost 5 [...] will need home health and lives in [place]. [facility] home health is a possibility. CM will continue to follow. DCP: MADINA LOVETT RN - Hairspring Truer - 08/18/21 15:47:49 (late entry from 08/15-) [...] and send referrals as appropriate. JULIO STEWART, RN-Hairspring Truer ED - 08/18/21 10:38:39 MADINA LOVETT, RN - Hairspring Truer - 08/20/2021 13:33 EDT Electronically signed by Lanny [facility] Conversion Mental Health Social Worker Cerner at 03/09/2023 8:49 PM CDT documented in this encounter Plan of Treatment Not on file documented as of this encounter Visit Diagnoses Not on filedocumented in this encounter Care Teams Director East Coast Sales Relationship Specialty Start Date End Date Reji Castro MD [address] [place] [id number] PCP - General Adolescent Medicine 10/02/22 documented as of this encounter
--- OUTSIDE RECORDS SUMMARY | 2025-05-24 10:51 | XMS_ITS | Encounter Summary ---
Author Organization [employer] ([place], [place], [place], [place]) Address [address] [place] [address] Care Team Providers Care Reconciler Name Role Phone Reji Castro MD Primary Care Provider + [phone] Encounter Details Date Type Department Care Team (Late st Contact Info) Description 08/15/2021 Transcribed Document [facility] [place] [facility] [place] [address] ProviderDelvin MD [address] [place] [address] [phone] Social History Tobacco Use Types Packs/Day Years [...] on filedocumented in this encounter Care Teams Reconciler Relationship Specialty Start Date End Date Reji Castro MD [address] [place] [id number] PCP - General Adolescent Medicine 10/02/22 documented as of this encounter
--- OUTSIDE RECORDS SUMMARY | 2025-05-24 10:51 | XMS_ITS | Encounter Summary ---
Author Organization [employer] ([place], [place], [place], [place]) Address [address] [place] [address] Care Team Providers Care Field Party Manager Name Role Phone Reji Castro MD Primary Care Provider + [phone] Encounter Details Date Type Department Care Team (Late st Contact Info) Description 08/11/2021 Transcribed Document [facility] [place] [facility] [place] [address] ProviderDelvin MD [address] [place] [address] [phone] Social History Tobacco Use Types Packs/Day Years [...] Communication Barrier : None Primary Language : Grenadian Any Spiritual/Cultural Needs or Requests : No [...] filedocumented in this encounter Care Teams Field Party Manager Relationship Specialty Start Date End Date Reji Castro MD [address] [place] [id number] PCP - General Adolescent Medicine 10/02/22 documented as of this encounter
--- OUTSIDE RECORDS SUMMARY | 2025-05-24 10:51 | XMS_ITS | Encounter Summary ---
Author Organization [employer] ([place], [place], [place], [place]) Address [address] [place] [address] Care Team Providers Care Screw Machine Repairer Name Role Phone Reji Castro MD Primary Care Provider + [phone] Encounter Details Date Type Department Care Team (Late st Contact Info) Description 08/11/2021 Transcribed Document [facility] [place] Family Medicine [address] [place] [address] ProviderDelvin MD [address] [place], [place] [id number] Social History Tobacco Use Types Packs/Day Years [...] : Low risk (0) [place] Interventions : [place] precautions for safety used MARIPOSA JACQUES RN - 08/11/2021 18:46 EDT documented in this encounter Plan of Treatment Not on file documented as of this encounter Visit Diagnoses Not on filedocumented in this encounter Care Teams Screw Machine Repairer Relationship Specialty Start Date End Date Reji Castro MD [address] [place] [address] PCP - General Adolescent Medicine 10/02/22 documented as of this encounter
--- OUTSIDE RECORDS SUMMARY | 2025-05-24 10:51 | XMS_ITS | Encounter Summary ---
Author Organization [employer] ([place], [place], [place], [place]) Address [address] [place] [address] Care Team Providers Care Soaker Hides Name Role Phone Reji Castro MD Primary Care Provider [phone] Encounter Details Date Type Department Care Team (Late st Contact Info) Description 08/20/2021 Transcribed Document [facility] Radiology [address] [place] [address] Loren Solorzano MD [address] [place] [address] [place] [address] Social History Tobacco Use Types Packs/Day Years [...] cefTRIAXone: 2 Gram, 100 mL/Hr, IV Piggyback, [id number] diphenhydrAMINE: 25 mg, Oral, Q6H, PRN: Itching [...] Oral, BID cefTRIAXone 2 Gram, IV Piggyback, F70GCeo citalopram 20 mg tab 40 mg 2 [...] Bioprosthetic mitral valve replacement / SNOMED CT 161487400 / Confirmed Chronic kidney disease / SNOMED CT 9857549394 / Confirmed COPD - Chronic obstructive pulmonary disease / SNOMED CT 566596768 / Confirmed History of obstructive sleep apnea / IMO 84975049 / Confirmed HLD - Hyperlipidemia / SNOMED CT 031416992 / Confirmed HTN - Hypertension / SNOMED CT 5678704866 / Confirmed Canceled: Atrial fibrillation / SNOMED CT 26726280, Active Problems (25) AIHA (autoimmune hemolytic anemia) [...] 25.9 \ Radiology Results (Last 48 hours) [id number] -- 08/11/2021 21:21 CR Fluoro in OR (08/19/2021 08:15) Result: FLUOROSCOPY IN THE ORHISTORY: Staph infection.FINDINGS: Fluoroscopy was provided by the radiology department [id number] placement. 1 spot film was submittedFLUOROSCOPY TIME: [...] Medications: cefTRIAXone 2 Gram, IV Piggyback, Inj, F65FBlv, infuse over 30 Minute(s), Routine, Start 08/20/21 [...] Hold home meds SSI #Depression Celexa #Pain [place] 10 mg every 6 hours as needed Dispo: Given patient with history of multiple transfusion we will keep patient in the hospital on heparin drip and Coumadin till INR therapeutic need IV abx, at least until 09/08. Discussed with immigration case manager. Time spent 25 minutes documented in this encounter Plan of Treatment Not on file documented as of this encounter Visit Diagnoses Not on filedocumented in this encounter Care Teams Soaker Hides Relationship Specialty Start Date End Date Reji Castro MD [address] [place] [address] PCP - General Adolescent Medicine 10/02/22 documented as of this encounter
--- OUTSIDE RECORDS SUMMARY | 2025-05-24 10:51 | XMS_ITS | Encounter Summary ---
Author Organization [employer] ([place], [place], [place], [place]) Address [address] [place] [address] Care Team Providers Care Vp Strategic Partnerships Name Role Phone Reji Castro MD Primary Care Provider + [phone] Encounter Details Date Type Department Care Team (Late st Contact Info) Description 08/11/2021 Transcribed Document [facility] [place] [address] [place] [address] ProviderDelvin MD [address] [place] [address] [phone] Social History Tobacco Use Types Packs/Day Years [...] past, CAD, mitral valve replacement presents to [facility] emergency department in [place] after being told by outside provider that [...] fibrillation 5. Diabetes mellitus type II 6. home health provider current use of anticoagulant At risk for [...] # 0.76 K/uL (Low) 08/11/2021 17:59 EDT Todd % 8.9 % 08/11/2021 17:59 EDT Todd # 0.61 K/uL 08/11/2021 17:59 EDT Eos [...] Appearance CLEAR2 08/11/2021 17:59 EDT Urine Specific Energy 1.007 08/11/2021 17:59 EDT Urine pH Dipstick [...] Full Code, Continuous Order Electronically signed by [facility], [facility] Conversion Take Up Operator Cerner at 03/09/2023 8:40 PM CDT documented in this encounter Plan of Treatment Not on file documented as of this encounter Visit Diagnoses Not on filedocumented in this encounter Care Teams Vp Strategic Partnerships Relationship Specialty Start Date End Date Reji Castro MD [address] [place] [address] PCP - General Adolescent Medicine 10/02/22 documented as of this encounter
--- OUTSIDE RECORDS SUMMARY | 2025-05-24 10:51 | XMS_ITS | Encounter Summary ---
Author Organization [employer] ([place], [place], [place], [place]) Address [address] [place] [address] Care Team Providers Care Saw Operator Name Role Phone Reji Castro MD Primary Care Provider + [phone] Encounter Details Date Type Department Care Team (Late st Contact Info) Description 08/11/2021 Transcribed Document [facility] [place] [facility] [place] [address] ProviderDelvin MD [address] [place] [address] [phone] Social History Tobacco Use Types Packs/Day Years [...] you, Noy Garrett, PharmD PGY-1 Resident Pager #[phone] documented in this encounter Plan of Treatment Not on file documented as of this encounter Visit Diagnoses Not on filedocumented in this encounter Care Teams Saw Operator Relationship Specialty Start Date End Date Reji Castro MD [address] [place] [address] PCP - General Adolescent Medicine 10/02/22 documented as of this encounter
--- OUTSIDE RECORDS SUMMARY | 2025-05-24 10:51 | XMS_ITS | Encounter Summary ---
Author Organization [employer] ([place], [place], [place]) Address [address] [place] [address] Care Team Providers Care Terminal Operations Supervisor Name Role Phone Reji Castro MD Primary Care Provider + [phone] Encounter Details Date Type Department Care Team (Late st Contact Info) Description 08/26/2021 Transcribed Document [facility] [place] Medicine [facility] [place] [address] ProviderDelvin MD [address] [place] [address] [phone] Social History Tobacco Use Types Packs/Day Years [...] 56 y/o F presenting to [facility] with history of COPD, atrial [...] due to procedure on 08/14 d/w Dr. uCevas: original goal INR 2-3, but should be [...] Daily INR Will follow, Zeyad SnowD, BCPS [phone] Electronically signed by Lanny, [facility] Conversion Railroad Operator Cerner at 03/09/2023 8:52 PM CDT documented in this encounter Plan of Treatment Not on file documented as of this encounter Visit Diagnoses Not on filedocumented in this encounter Care Teams Terminal Operations Supervisor Relationship Specialty Start Date End Date Reji Castro MD [address] [place] [address] PCP - General Adolescent Medicine 10/02/22 documented as of this encounter
--- OUTSIDE RECORDS SUMMARY | 2025-05-24 10:51 | XMS_ITS | Encounter Summary ---
Author Organization [employer] ([place], [place], [place], [place]) Address [address] [place] [address] Care Team Providers Care Salt Washer Harvesting Station Name Role Phone Reji Castro MD Primary Care Provider + [phone] Encounter Details Date Type Department Care Team (Late st Contact Info) Description 08/11/2021 Transcribed Document [facility] [place] [facility] [place] [address] ProviderDelvin MD [address] [place] [address] [phone] Social History Tobacco Use Types Packs/Day Years [...] Unaccompanied Legal Guardian : No Support Person/Patient Hydraulic Mechanic : Yes Support Person/Pt Rep Name : [...] 180 units of blood due to anemia, [facility]. Information Obtained From : Patient Primary Language : Djib[place]ian Communication Barrier : None Public Address System Operator Needed : No Cherri Webb RN [...] Scale Risk Level : 0-24 Low Risk [place] Fall Interventions : Adequate lighting, Assistive devices [...] Source : Stated Height Entry Format : [place] Height, Feet : 5 ft(Converted to: 152 cm, 60 Inch) Height, Inches : 4 Inch(Converted to: 0 ft 4 Inch, 10.16 cm) Clinical Height : 162.56 cm Weight Source : Standing scale Weight Entry Format : [place] Clinical Dosing Weight : 86.39 kg Weight, Pounds : 190 lb Weight, Ounces : 1 oz Body Surface Area (BSA) : 1.92 m2 Body Mass Index : 32.7 kg/m2 ([place]) [place] Body Weight : 54 kg Cherri Webb [...] Cherri Webb RN - 08/11/2021 23:11 EDT [place] Suicide Severity Rating Scale (C-SSRS) CSSRS Past [...] Items : Cell phone, Other: Cell Phone Color Paste Mixer Personal Items Disposition : Bedside Cherri Webb RN - 08/11/2021 23:11 EDT documented in this encounter Plan of Treatment Not on file documented as of this encounter Visit Diagnoses Not on filedocumented in this encounter Care Teams Salt Washer Harvesting Station Relationship Specialty Start Date End Date Reji Castro MD [address] [place] [address] PCP - General Adolescent Medicine 10/02/22 documented as of this encounter
--- OUTSIDE RECORDS SUMMARY | 2025-05-24 10:51 | XMS_ITS | Encounter Summary ---
Author Organization [employer] ([place], [place], [place], [place]) Address [address] [place] [address] Care Team Providers Care Tactical Debriefer Name Role Phone Reji Castro MD Primary Care Provider + [phone] Encounter Details Date Type Department Care Team (Late st Contact Info) Description 08/11/2021 Transcribed Document [facility] [place] [address] [place] [address] ProviderDelvin MD [address] [place] [address] [phone] Social History Tobacco Use Types Packs/Day Years [...] On: 08/11/2021 16:19 EDT by MICHAEL NAM, BOLOGNA MAKER Triage Across the Room Chief Complaint : [...] : 3 - Urgent Tracking Group : [facility] ED MICHAEL NAM RN - 08/11/2021 16:19 [...] 08/11/2021 16:25:12 EDT) Problems(Active) Amblyopia (SNOMED CT :8624893199 ) Name of Problem: Amblyopia ; Recorder: Whitney Razo RN; Confirmation: Confirmed ; Classification: Patient Stated ; Code: [id number] ; Contributor System: PowerChart ; Last Updated: 05/03/2014 19:25 EDT ; Life Cycle Date: 12/02/2013 ; Life Cycle Status: Active ; Vocabulary: SNOMED CT ; Comments: 12/02/2013 0:50 - Whitney Razo RN lazy eye blindness (left eye) Arthritis (SNOMED CT :1681164 ) Name of Problem: Arthritis ; Recorder: Whitney Razo RN; Confirmation: Confirmed ; Classification: Patient Stated ; Code: [id number] ; Contributor System: PowerChart ; Last Updated: 05/03/2014 19:25 EDT ; Life Cycle Date: 12/02/2013 ; Life Cycle Status: Active ; Vocabulary: SNOMED CT Atrial fibrillation (SNOMED CT :69681033 ) Name of Problem: Atrial fibrillation ; Recorder: Whitney Razo RN; Confirmation: Confirmed ; Classification: Patient Stated ; Code: 85688496 ; Contributor System: PowerChart ; Last Updated: 05/03/2014 19:25 EDT ; Life Cycle Date: 12/02/2013 ; Life Cycle Status: Active ; Vocabulary: SNOMED CT Back pain (PNED :[id number] ) Name of Problem: Back pain ; Recorder: Whitney Razo RN; Confirmation: Confirmed ; Classification: Patient Stated ; Code: [id number] ; Contributor System: PowerChart ; Last Updated: 05/07/2014 9:11 EDT ; Life Cycle Date: 12/02/2013 ; Life Cycle Status: Active ; Vocabulary: PNED Bowel obstruction (SNOMED CT :593463765 ) Name of Problem: Bowel obstruction ; Recorder: Whitney Razo RN; Confirmation: Confirmed ; Classification: Patient Stated ; Code: 702970276 ; Contributor System: PowerChart ; Last Updated: 05/03/2014 19:25 EDT ; Life Cycle Date: 12/02/2013 ; Life Cycle Status: Active ; Vocabulary: SNOMED CT Bronchitis (SNOMED CT :06676369 ) Name of Problem: Bronchitis ; Recorder: Whitney Razo RN; Confirmation: Confirmed ; Classification: Patient Stated ; Code: 61708894 ; Contributor System: PowerChart ; Last Updated: 05/03/2014 19:25 EDT ; Life Cycle Date: 12/02/2013 ; Life Cycle Status: Active ; Vocabulary: SNOMED CT Cardiac arrhythmia (SNOMED CT :2705049712 ) Name of Problem: Cardiac arrhythmia ; Recorder: Whitney Razo RN; Confirmation: Confirmed ; Classification: Patient Stated ; Code: 2443474086 ; Contributor System: PowerChart ; Last Updated: 05/03/2014 19:25 EDT ; Life Cycle Date: 12/02/2013 ; Life Cycle Status: Active ; Vocabulary: SNOMED CT Cardiomyopathy (SNOMED CT :339670776 ) Name of Problem: Cardiomyopathy ; Recorder: Whitney Razo RN; Confirmation: Confirmed ; Classification: Patient Stated ; Code: 532308047 ; Contributor System: PowerChart ; Last Updated: 05/03/2014 19:25 EDT ; Life Cycle Date: 12/02/2013 ; Life Cycle Status: Active ; Vocabulary: SNOMED CT COPD (SNOMED CT :30212173 ) Name of Problem: COPD ; Recorder: Whitney Razo RN; Confirmation: Confirmed ; Classification: Patient Stated ; Code: 67926303 ; Contributor System: PowerChart ; Last Updated: 05/07/2014 9:10 EDT ; Life Cycle Date: 12/02/2013 ; Life Cycle Status: Active ; Vocabulary: SNOMED CT Diabetes mellitus (SNOMED CT :926848546 ) Name of Problem: Diabetes mellitus ; Recorder: Whitney Razo RN; Confirmation: Confirmed ; Classification: Patient Stated ; Code: 399073428 ; Contributor System: PowerChart ; Last Updated: 05/03/2014 19:25 EDT ; Life Cycle Date: 12/02/2013 ; Life Cycle Status: Active ; Vocabulary: SNOMED CT Diabetes mellitus type II (SNOMED CT :54195302 ) Name of Problem: Diabetes mellitus type II ; Recorder: Whitney Razo RN; Confirmation: Confirmed ; Classification: Patient Stated ; Code: 14291772 ; Contributor System: PowerChart ; Last Updated: 05/07/2014 9:12 EDT ; Life Cycle Date: 12/02/2013 ; Life Cycle Status: Active ; Vocabulary: SNOMED CT Diverticulosis (SNOMED CT :1792116669 ) Name of Problem: Diverticulosis ; Recorder: Whitney Razo RN; Confirmation: Confirmed ; Classification: Patient Stated ; Code: 5886822554 ; Contributor System: PowerChart ; Last Updated: 05/03/2014 19:25 EDT ; Life Cycle Date: 12/02/2013 ; Life Cycle Status: Active ; Vocabulary: SNOMED CT Edema (SNOMED CT :151064590 ) Name of Problem: Edema ; Recorder: Whitney Razo RN; Confirmation: Confirmed ; Classification: Patient Stated ; Code: 401055233 ; Contributor System: PowerChart ; Last Updated: 05/03/2014 19:25 EDT ; Life Cycle Date: 12/02/2013 ; Life Cycle Status: Active ; Vocabulary: SNOMED CT ; Comments: 12/02/2013 1:45 - Whitney Razo RN BLE Fibromyalgia (SNOMED CT :19713400 ) Name of Problem: Fibromyalgia ; Recorder: Whitney Razo RN; Confirmation: Confirmed ; Classification: Patient Stated ; Code: 85506002 ; Contributor System: PowerChart ; Last Updated: [...] GERD - Gastro-esophageal reflux disease (SNOMED CT :5227093603 ) Name of Problem: GERD - Gastro-esophageal reflux disease ; Recorder: Whitney Razo RN; Confirmation: Confirmed ; Classification: Patient Stated ; Code: 9294680025 ; Contributor System: PowerChart ; Last Updated: 05/07/2014 9:09 EDT ; Life Cycle Date: 12/02/2013 ; Life Cycle Status: Active ; Vocabulary: SNOMED CT Heart failure (SNOMED CT :183453570 ) Name of Problem: Heart failure ; Recorder: Whitney Razo RN; Confirmation: Confirmed ; Classification: Patient Stated ; Code: 772030507 ; Contributor System: PowerChart ; Last Updated: 05/03/2014 19:25 EDT ; Life Cycle Date: 12/02/2013 ; Life Cycle Status: Active ; Vocabulary: SNOMED CT Heart valve (SNOMED CT :281321964 ) Name of Problem: Heart valve ; Recorder: Whitney Razo RN; Confirmation: Confirmed ; Classification: Patient Stated ; Code: 213613608 ; Contributor System: PowerChart ; Last Updated: 05/07/2014 9:14 EDT ; Life Cycle Date: 12/02/2013 ; Life Cycle Status: Active ; Vocabulary: SNOMED CT Hepatomegaly (SNOMED CT :128339966 ) Name of Problem: Hepatomegaly ; Recorder: Whitney Razo RN; Confirmation: Confirmed ; Classification: Patient Stated ; Code: 364045345 ; Contributor System: PowerChart ; Last Updated: 05/03/2014 19:25 EDT ; Life Cycle Date: 12/02/2013 ; Life Cycle Status: Active ; Vocabulary: SNOMED CT High blood pressure (SNOMED CT :86178827 ) Name of Problem: High blood pressure ; Recorder: Whitney Razo RN; Confirmation: Confirmed ; Classification: Patient Stated ; Code: 85471998 ; Contributor System: PowerChart ; Last Updated: 05/03/2014 19:25 EDT ; Life Cycle Date: 12/02/2013 ; Life Cycle Status: Active ; Vocabulary: SNOMED CT Hyperlipidemia (SNOMED CT :61254728 ) Name of Problem: Hyperlipidemia ; Recorder: Whitney Razo RN; Confirmation: Confirmed ; Classification: Patient Stated ; Code: 47262999 ; Contributor System: PowerChart ; Last Updated: 05/03/2014 19:25 EDT ; Life Cycle Date: 12/02/2013 ; Life Cycle Status: Active ; Vocabulary: SNOMED CT Lazy eye (SNOMED CT :409925097 ) Name of Problem: Lazy eye ; Recorder: Whitney Razo RN; Confirmation: Confirmed ; Classification: Patient Stated ; Code: 493402503 ; Contributor System: PowerChart ; Last Updated: 05/03/2014 19:25 EDT ; Life Cycle Date: 12/02/2013 ; Life Cycle Status: Active ; Vocabulary: SNOMED CT ; Comments: 12/02/2013 0:49 - Whitney Razo RN lazy eye blindness (left eye) Myocardial infarction (SNOMED CT :56777919 ) Name of Problem: Myocardial infarction ; Recorder: Whitney Razo RN; Confirmation: Confirmed ; Classification: Patient Stated ; Code: 19961799 ; Contributor System: PowerChart ; Last Updated: [...] Cycle Status: Active Ovarian cyst (SNOMED CT :499792928 ) Name of Problem: Ovarian cyst ; Recorder: Whitney Razo RN; Confirmation: Confirmed ; Classification: Patient Stated ; Code: 195475215 ; Contributor System: PowerChart ; Last Updated: 05/03/2014 19:25 EDT ; Life Cycle Date: 12/02/2013 ; Life Cycle Status: Active ; Vocabulary: SNOMED CT Renal calculus (SNOMED CT :043411803 ) Name of Problem: Renal calculus ; Recorder: Whitney Razo RN; Confirmation: Confirmed ; Classification: Patient Stated ; Code: 054407923 ; Contributor System: PowerChart ; Last Updated: 05/03/2014 19:25 EDT ; Life Cycle Date: 12/02/2013 ; Life Cycle Status: Active ; Vocabulary: SNOMED CT Restless legs syndrome (SNOMED CT :19998794 ) Name of Problem: Restless legs syndrome ; Recorder: Whitney Razo RN; Confirmation: Confirmed ; Classification: Patient Stated ; Code: 42411425 ; Contributor System: PowerChart ; Last Updated: 05/03/2014 19:25 EDT ; Life Cycle Date: 12/02/2013 ; Life Cycle Status: Active ; Vocabulary: SNOMED CT Thyroid disease (SNOMED CT :587814712 ) Name of Problem: Thyroid disease ; Recorder: Whitney Razo RN; Confirmation: Confirmed ; Classification: Patient Stated ; Code: 489023595 ; Contributor System: [employer]essa ; Last Updated: 05/03/2014 19:25 EDT ; Life Cycle Date: 12/02/2013 ; Life Cycle Status: Active ; Vocabulary: SNOMED CT Diagnoses(Active) Medical screening exam Date: 08/11/2021 ; Diagnosis Type: Reason For Visit ; Confirmation: Complaint of ; Clinical Dx: Medical screening exam ; Classification: Medical ; Clinical Service: Emergency medicine ; Code: PNED ; Probability: 0 ; Diagnosis Code: [id number] ED Height and Weight Height Source : Stated Height Entry Format : Piatt Height, Feet : 5 ft(Converted to: 152 cm, 60 Inch) Height, Inches : 4 Inch(Converted to: 0 ft 4 Inch, 10.16 cm) Clinical Height : 162.56 cm Weight Source, ED : Critical estimated dosing weight Weight Entry Format : Piatt Weight, Pounds : 190 lb Clinical Dosing Weight : 86.36 kg Body Surface Area (BSA) : 1.92 m2 Body Mass Index : 32.7 kg/m2 (HI) Dillon Body Weight (IBW) : 54.3 kg MICHAEL NAM RN - 08/11/2021 16:19 EDT documented in this encounter Plan of Treatment Not on file documented as of this encounter Visit Diagnoses Not on filedocumented in this encounter Care Teams Tactical Debriefer Relationship Specialty Start Date End Date Reji Castro MD [address] [place] [id number] PCP - General Adolescent Medicine 10/02/22 documented as of this encounter
--- OUTSIDE RECORDS SUMMARY | 2025-05-24 10:51 | XMS_ITS | Encounter Summary ---
Author Organization [employer] ([place], [place], [place], [place]) Address [address] [place] [address] Care Team Providers Care Computer Scientist Name Role Phone Reji Castro MD Primary Care Provider + [phone] Encounter Details Date Type Department Care Team (Late st Contact Info) Description 08/15/[address] [facility] [place] Family Medicine [address] [place] [address] ProviderDelvin MD [address] [place] [address] [phone] Social History Tobacco Use Types Packs/Day Years [...] on filedocumented in this encounter Care Teams Computer Scientist Relationship Specialty Start Date End Date Reji Castro MD [address] [place] [id number] PCP - General Adolescent Medicine 10/02/22 documented as of this encounter
--- OUTSIDE RECORDS SUMMARY | 2025-05-24 10:51 | XMS_ITS | Encounter Summary ---
Author Organization [employer] ([place], [place], [place], [place]) Address [address] [place] [address] Care Team Providers Care Screen Tender Helper Name Role Phone Reji Castro MD Primary Care Provider + [phone] Encounter Details Date Type Department Care Team (Late st Contact Info) Description 08/11/2021 Transcribed Document [facility] [place] [address] [place] [address] ProviderDelvin MD [address] [place] [address] [id number] Social History Tobacco Use Types Packs/Day Years [...] 08/12/2021 9:32 EDT Electronically signed by Lanny [facility] Conversion Pastry Cook Helper Cerner at 03/09/2023 8:42 PM CDT documented in this encounter Plan of Treatment Not on file documented as of this encounter Visit Diagnoses Not on filedocumented in this encounter Care Teams Screen Tender Helper Relationship Specialty Start Date End Date Reji Castro MD [address] [place] [id number] PCP - General Adolescent Medicine 10/02/22 documented as of this encounter
--- OUTSIDE RECORDS SUMMARY | 2025-05-24 10:51 | XMS_ITS | Encounter Summary ---
Author Organization [employer] ([place], [place], [place], [place]) Address [address] [place] [address] Care Team Providers Care Bread Supervisor Name Role Phone Reji Castro MD Primary Care Provider + [phone] Encounter Details Date Type Department Care Team (Late st Contact Info) Description 08/26/2021 Transcribed Document [facility] [place] [facility] [place] [address] ProviderDelvin MD [address] [place] [address] [phone] Social History Tobacco Use Types Packs/Day Years [...] cefTRIAXone: 2 Gram, 100 mL/Hr, IV Piggyback, T90EOiv diphenhydrAMINE: 25 mg, Oral, Q6H, PRN: Itching [...] Oral, BID cefTRIAXone 2 Gram, IV Piggyback, V79YTve citalopram 20 mg tab 40 mg 2 [...] Bioprosthetic mitral valve replacement / SNOMED CT 316418773 / Confirmed Chronic kidney disease / SNOMED CT 7680263309 / Confirmed COPD - Chronic obstructive pulmonary disease / SNOMED CT 750413823 / Confirmed History of obstructive sleep apnea / IMO 39883738 / Confirmed HLD - Hyperlipidemia / SNOMED CT 472740835 / Confirmed HTN - Hypertension / SNOMED CT 9764878636 / Confirmed Canceled: Atrial fibrillation / SNOMED CT 43720290, Active Problems (25) AIHA (autoimmune hemolytic anemia) [...] 29.0 \ Radiology Results (Last 48 hours) [id number] -- 08/11/2021 21:21 CR Chest 1 Vw [...] Hold home meds SSI Depression Celexa Pain [place] 10 mg every 6 hours as needed CODE STATUS. Full code Dispo: H/H stable, neg trops, clinically better need therapeutic inr for discharge, pharm managing. hopefully in am Time spent 26 minutes documented in this encounter Plan of Treatment Not on file documented as of this encounter Visit Diagnoses Not on filedocumented in this encounter Care Teams Bread Supervisor Relationship Specialty Start Date End Date Reji Castro MD [address] [place] [address] PCP - General Adolescent Medicine 10/02/22 documented as of this encounter
--- OUTSIDE RECORDS SUMMARY | 2025-05-24 10:51 | XMS_ITS | Encounter Summary ---
Author Organization [employer] ([place], [place], [place], [place]) Address [address] [place] [address] Care Team Providers Care Medical Assistant Prn Name Role Phone Reji Castro MD Primary Care Provider + [phone] Encounter Details Date Type Department Care Team (Late st Contact Info) Description 08/26/2021 Transcribed Document [facility] [place] [facility] [address] ProviderDelvin MD [address] [place] [address] [phone] Social History Tobacco Use Types Packs/Day Years Used Date Smoking Tobacco: Never Assessed Comments Unknown Sex and Gender Information Value Date Recorded Sex Assigned at Not on file Legal Sex Female 4:32 PM CDT Gender Identity Not on file Sexual Orientation Not on file documented as of this encounter Miscellaneous Notes * Cerner Conversion Note - Historical ProviderMD - 08/26/2021 2:00 AM CDT Cable Mechanic Details Entered On: 08/26/2021 4:16 EDT Performed On: 08/26/2021 2:00 EDT by aPmela Miguel, JEREMIAH Order Details Transport Mode Order [...] filedocumented in this encounter Care Teams Medical Assistant Prn Relationship Specialty Start Date End Date eRji Castro MD [address] [place] [address] PCP - General Adolescent Medicine 10/02/22 documented as of this encounter
--- OUTSIDE RECORDS SUMMARY | 2025-05-24 10:51 | XMS_ITS | Encounter Summary ---
Author Organization [employer] ([place], [place], [place], [place]) Address [address] [place] [address] Care Team Providers Care Living Manager Name Role Phone Reji Castro MD Primary Care Provider + [phone] Encounter Details Date Type Department Care Team (Late st Contact Info) Description 08/11/2021 Transcribed Document [facility] [place] Medicine [facility] [place] [address] ProviderDelvin MD [address] [place] [address] [phone] Social History Tobacco Use Types Packs/Day Years [...] - 08/12/2021 9:33 EDT Electronically signed by [facility] Sjh Conversion Commercial Property Administrator Cerner at 03/09/2023 8:39 PM CDT documented in this encounter Plan of Treatment Not on file documented as of this encounter Visit Diagnoses Not on filedocumented in this encounter Care Teams Living Manager Relationship Specialty Start Date End Date Reji Castro MD [address] [place] [address] PCP - General Adolescent Medicine 10/02/22 documented as of this encounter
--- OUTSIDE RECORDS SUMMARY | 2025-05-24 10:51 | XMS_ITS | Encounter Summary ---
Author Organization [employer] ([place], [place], [place], [place]) Address [address] [place] [address] Care Team Providers Care Assessment Director Name Role Phone Reji Castro MD Primary Care Provider + [phone] Encounter Details Date Type Department Care Team (Late st Contact Info) Description 08/20/2021 Transcribed Document [facility] [place] [facility] [place] [address] ProviderDelvin MD [address] [place] [address] [phone] Social History Tobacco Use Types Packs/Day Years Used Date Smoking Tobacco: Never Assessed Comments Unknown Sex and Gender Information Value Date Recorded Sex Assigned at Not on file Legal Sex Female 4:32 PM CDT Gender Identity Not on file Sexual Orientation Not on file documented as of this encounter Miscellaneous Notes * Cerner Conversion Note - Historical ProviderMD - 08/20/2021 2:00 AM CDT Pile Header Details Entered On: 08/20/2021 3:08 EDT Performed [...] on filedocumented in this encounter Care Teams Assessment Director Relationship Specialty Start Date End Date Reji Castro MD [address] [place] [id number] PCP - General Adolescent Medicine 10/02/22 documented as of this encounter
--- OUTSIDE RECORDS SUMMARY | 2025-05-24 10:51 | XMS_ITS | Encounter Summary ---
Author Organization [employer] ([place], [place], [place], [place]) Address [address] [place] [address] Care Team Providers Care Bingo Manager Name Role Phone Reji Castro MD Primary Care Provider + [phone] Encounter Details Date Type Department Care Team (Late st Contact Info) Description 08/11/2021 Transcribed Document [facility] [place] Family Medicine [address] [place] [address] ProviderDelvin MD [address] [place] [address] [phone] Social History Tobacco Use Types Packs/Day Years [...] pin. Replacement, mitral valve, with cardiopulmonary bypass (47811). sternotomy. hernia repair, abdominal. sigmoid colon resection. Tendon sheath incision (eg, for trigger finger) (76772). jaw surgery, left. great toe surger, left. [...] % LOW Lymph # 0.76 K/uL LOW Davidson % 8.9 % Davidson # 0.61 K/uL Eos % 4.4 % Eos # 0.30 Baso % 0.4 % Baso # 0.03 Slide Review No PT 18.9 Second(s) HI INR 1.8 HI PTT 39.6 Second(s) HI Urine Type U CleanCatch Urine Color Yellow Urine Appearance Clear Urine Specific Nancy 1.007 Urine pH Dipstick 6.5 Urine Leukocyte Esterase Negative Urine Nitrite Negative Urine Protein Dipstick Negative Urine Glucose Dipstick Negative Urine Ketones Dipstick Negative Urine Urobilinogen Dipstick 0.2 EU/dL Urine Bilirubin Dipstick Negative Urine Blood Dipstick Negative Ur WBC None Seen /HPF Ur Squamous Epithelial Cells 0-2 /HPF . Radiology results: Radiology Results (Last 48 hours) [id number] -- 08/11/2021 16:16 CR Chest 1 Vw [...] of instructions. Electronically signed by Lanny [facility] Conversion Certified Surgical Technologist Cerner at 03/09/2023 8:55 PM CDT documented in this encounter Plan of Treatment Not on file documented as of this encounter Visit Diagnoses Not on filedocumented in this encounter Care Teams Bingo Manager Relationship Specialty Start Date End Date Reji Castro MD [address] [place] [id number] PCP - General Adolescent Medicine 10/02/22 documented as of this encounter
--- OUTSIDE RECORDS SUMMARY | 2025-05-24 10:51 | XMS_ITS | Encounter Summary ---
Author Organization [employer] ([place], [place], [place], [place]) Address [address] [place] [address] Care Team Providers Care Transition Mgr Rn Name Role Phone Reji Castro MD Primary Care Provider + [phone] Encounter Details Date Type Department Care Team (Late st Contact Info) Description 08/11/2021 Transcribed Document [facility] [place] [address] [place] [address] ProviderDelvin MD [address] [place] [address] Social History Tobacco Use Types Packs/Day [...] on filedocumented in this encounter Care Teams Transition Mgr Rn Relationship Specialty Start Date End Date Reji Castro MD [address] [place] [id number] PCP - General Adolescent Medicine 10/02/22 documented as of this encounter
--- OUTSIDE RECORDS SUMMARY | 2025-05-24 10:51 | XMS_ITS | Encounter Summary ---
Author Organization [employer] ([place], [place], [place], [place]) Address [address] [place] [address] Care Team Providers Care Cleat Maker Name Role Phone Reji Castro MD Primary Care Provider + [phone] Encounter Details Date Type Department Care Team (Late st Contact Info) Description 08/15/2021 Transcribed Document [facility] [facility] [place] [address] [place] [address] ProviderDelvin MD [address] [place] [address] [phone] Social History Tobacco Use Types Packs/Day Years [...] On: 08/15/2021 10:34 EDT by JULIO STEWART RN-Automated Access Systems Technician ED Care Management Progress Note Discharge Arrangements [...] : Clinical Condition of Patient JULIO STEWART, RN-Automated Access Systems Technician ED - 08/18/2021 10:34 EDT Narrative Progress [...] and send referrals as appropriate. JULIO STEWART, RN-Automated Access Systems Technician ED - 08/18/2021 10:34 EDT Electronically signed by Lanny [facility] Conversion Machine Sewer Cerner at 03/09/2023 8:33 PM CDT documented in this encounter Plan of Treatment Not on file documented as of this encounter Visit Diagnoses Not on filedocumented in this encounter Care Teams Cleat Maker Relationship Specialty Start Date End Date Reji Castro MD [address] [place] [id number] PCP - General Adolescent Medicine 10/02/22 documented as of this encounter
--- OUTSIDE RECORDS SUMMARY | 2025-05-24 10:51 | XMS_ITS | Encounter Summary ---
Author Organization [employer] ([place], [place], [place], [place]) Address [address] [place] [address] Care Team Providers Care Parts Clerk Plant Maintenance Name Role Phone Reji Castro MD Primary Care Provider + [phone] Encounter Details Date Type Department Care Team (Late st Contact Info) Description 08/20/2021 Transcribed Document [facility] [place] [facility] [place] [address] ProviderDelvin MD [address] [place] [address] [phone] Social History Tobacco Use Types Packs/Day Years [...] cefTRIAXone: 2 Gram, 100 mL/Hr, IV Piggyback, [id number]. citalopram: 40 mg, Oral, Daily. diphenhydrAMINE: 50 [...] questions. Thank you, Andrea Moraes, PharmD PGY1 Fitness Management Director Pager: [phone], Ext. [phone] Electronically signed by Lanny [facility] Conversion Chain Saw Operator Cerner at 03/09/2023 8:58 PM CDT documented in this encounter Plan of Treatment Not on file documented as of this encounter Visit Diagnoses Not on filedocumented in this encounter Care Teams Parts Clerk Plant Maintenance Relationship Specialty Start Date End Date Reji Castro MD [address] [place] [phone] PCP - General Adolescent Medicine 10/02/22 documented as of this encounter
--- OUTSIDE RECORDS SUMMARY | 2025-05-24 10:51 | XMS_ITS | Encounter Summary ---
Author Organization [employer] ([place], [place], [place], [place]) Address [address] [place] [address] Care Team Providers Care Management Assistant Name Role Phone Reji Castro MD Primary Care Provider + [phone] Encounter Details Date Type Department Care Team (Late st Contact Info) Description 08/26/2021 Transcribed Document [facility] [place] Family Medicine [address] [place] [address] ProviderDelvin MD [address] [place] [address] [phone] Social History Tobacco Use Types Packs/Day Years [...] 4:16 EDT Electronically signed by Lanny [facility] Conversion Ferris Wheel Attendant Cerner at 03/09/2023 8:32 PM CDT documented in this encounter Plan of Treatment Not on file documented as of this encounter Visit Diagnoses Not on filedocumented in this encounter Care Teams Management Assistant Relationship Specialty Start Date End Date Reji Castro MD [address] [place] [id number] PCP - General Adolescent Medicine 10/02/22 documented as of this encounter
--- OUTSIDE RECORDS SUMMARY | 2025-05-24 10:51 | XMS_ITS | Encounter Summary ---
Author Organization [employer] ([place], [place], [place], [place]) Address [address] [place] [address] Care Team Providers Care Joy Operator Name Role Phone Reji Castro MD Primary Care Provider + [phone] Encounter Details Date Type Department Care Team (Late st Contact Info) Description 08/15/2021 Transcribed Document [facility] [place] [facility] [place] [address] ProviderDelvin MD [address] [place] [address] [phone] Social History Tobacco Use Types Packs/Day Years [...] mg, 14 mL, 128 mL/Hr, IV Piggyback, [id number]. docusate-senna: 1 Tab, Oral, BID. famotidine: 20 [...] questions. Thank you, Andrea Moraes, PharmD PGY1 Loan Closer Pager: [phone], Ext. [phone] documented in this encounter Plan of Treatment Not on file documented as of this encounter Visit Diagnoses Not on filedocumented in this encounter Care Teams Joy Operator Relationship Specialty Start Date End Date Reji Castro MD [address] [place] [phone] PCP - General Adolescent Medicine 10/02/22 documented as of this encounter
--- OUTSIDE RECORDS SUMMARY | 2025-05-24 10:51 | XMS_ITS | Encounter Summary ---
Author Organization [employer] ([place], [place], [place], [place]) Address [address] [place] [address] Care Team Providers Care Counter Professional Name Role Phone Reji Castro MD Primary Care Provider + [phone] Encounter Details Date Type Department Care Team (Late st Contact Info) Description 08/15/2021 Transcribed Document [facility] [place] [facility] [place] [address] ProviderDelvin MD [address] [place] [address] [phone] Social History Tobacco Use Types Packs/Day Years [...] mL - 700 mg, IV Piggyback, Inj, [id number], infuse over 30 Minute(s), Routine Cardiovascular metoprolol [...] PRN for Pain (Severe 7-10), Routine acetaminophen-hydrocodone ([place] 10 mg-325 mg oral tablet) - 1 [...] hrs) Last Charted Minimum Maximum Temp 97.8 ([facility] 09:37) 97.8 ([facility] 09:37) 98.1 ([facility] 06:00[facility] Apical HR 82 ([facility] 20:41) 82 ([facility] 20:41) 82 ([facility] 20:41) Mon HR 82 ([facility] 09[facility]37) 58 ([facility] 22:00) 91 ([facility] 06[facility]00) Resp Rate 17 (AUG 15 09:37) 16 ([facility] 17:21) 18 ([facility] 06:00) SBP 102 ([facility] 09:37) 91 ([facility] 06:00) 108 ([facility] 23 17:21) DBP 61 ([facility] 09:37) L 54 ([facility] 06:00) 76 ([facility] 23 17:21) MAP 81 ([facility] 09:37) 68 ([facility] 03:00) 86 ([facility] 23 17:21) SpO2 94 ([facility] 06:00) L 91 ([facility] 22:00) 97 ([facility] 03:00) General: No acute distress. Eye: Extraocular [...] filedocumented in this encounter Care Teams Counter Professional Relationship Specialty Start Date End Date Reji Castro MD [address] [place] [id number] PCP - General Adolescent Medicine 10/02/22 documented as of this encounter
--- OUTSIDE RECORDS SUMMARY | 2025-05-24 10:51 | XMS_ITS | Encounter Summary ---
Author Organization [employer] ([place], [place], [place], [place]) Address [address] [place] [address] Care Team Providers Care Doubler Operator Name Role Phone Reji Castro MD Primary Care Provider + [phone] Encounter Details Date Type Department Care Team (Late st Contact Info) Description 08/20/2021 Transcribed Document [place] Family Medicine [facility] [place] [address] ProviderDelvin MD [address] [place] [address] [phone] Social History Tobacco Use Types Packs/Day Years [...] On: 08/20/2021 5:00 EDT by Eula Tinoco, Painter Tumbling Barrel-Health Unit Coord Height and Weight, Routine Routine Weight Source : Standing scale Routine Weight Entry Format : Curtis Routine Weight, Pounds : 204 lb Routine Weight, Ounces : 7 oz Routine Weight Calculation : 92.93 kg Height Source : Stated Height Entry Format : Curtis Height, Feet : 5 ft Height, Inches : 4 Inch Clinical Height : 162.56 cm Body Surface Area (BSA), Routine : 1.98 m2 Body Mass Index (BMI), Routine : 35.17 kg/m2 Eula Tinoco, Painter [facility] Unit [facility] - 08/20/2021 6:41 EDT Electronically signed by Lanny, [facility] Conversion Senior Market Intelligence Consultant Cerner at 03/09/2023 8:44 PM CDT documented in this encounter Plan of Treatment Not on file documented as of this encounter Visit Diagnoses Not on filedocumented in this encounter Care Teams Doubler Operator Relationship Specialty Start Date End Date Reji Castro MD [address] [place] [phone] PCP - General Adolescent Medicine 10/02/22 documented as of this encounter
--- OUTSIDE RECORDS SUMMARY | 2025-05-24 10:51 | XMS_ITS | Encounter Summary ---
Author Organization [employer] ([place], [place], [place], [place]) Address [address] [place] [address] Care Team Providers Care Certified Real Estate Appraiser Name Role Phone Reji Castro MD Primary Care Provider + [phone] Encounter Details Date Type Department Care Team (Late st Contact Info) Description 08/26/2021 Transcribed Document [facility] [place] [facility] [place] [place] [address] ProviderDelvin MD [address] [place] [address] [phone] Social History Tobacco Use Types Packs/Day Years [...] cefTRIAXone: 2 Gram, 100 mL/Hr, IV Piggyback, [id number] diphenhydrAMINE: 25 mg, Oral, Q6H, PRN: Itching [...] Oral, BID cefTRIAXone 2 Gram, IV Piggyback, [id number] citalopram 20 mg tab 40 mg 2 [...] Bioprosthetic mitral valve replacement / SNOMED CT 899376420 / Confirmed Chronic kidney disease / SNOMED CT 2731559466 / Confirmed COPD - Chronic obstructive pulmonary disease / SNOMED CT 846093883 / Confirmed History of obstructive sleep apnea / IMO 04367960 / Confirmed HLD - Hyperlipidemia / SNOMED CT 139663246 / Confirmed HTN - Hypertension / SNOMED CT 9114146150 / Confirmed Canceled: Atrial fibrillation / SNOMED CT 88087684, Active Problems (25) AIHA (autoimmune hemolytic anemia) [...] adjust medications. Electronically signed by Lanny, [facility] Conversion Corn Press Operator Cerner at 03/09/2023 8:56 PM CDT documented in this encounter Plan of Treatment Not on file documented as of this encounter Visit Diagnoses Not on filedocumented in this encounter Care Teams Certified Real Estate Appraiser Relationship Specialty Start Date End Date Reji Castro MD [address] [place] [id number] PCP - General Adolescent Medicine 10/02/22 documented as of this encounter
--- OUTSIDE RECORDS SUMMARY | 2025-05-24 10:51 | XMS_ITS | Encounter Summary ---
Author Organization [employer] ([place], [place], [place], [place]) Address [address] [place] [address] Care Team Providers Care Bottle Caser Name Role Phone Reji Castro MD Primary Care Provider + [phone] Encounter Details Date Type Department Care Team (Late st Contact Info) Description 08/15/2021 Transcribed Document [facility] [place] [facility] [place] [address] ProviderDelvin MD [address] [place] [address] [phone] Social History Tobacco Use Types Packs/Day Years [...] Hold home meds SSI #Depression Celexa #Pain [place] 10 mg every 6 hours as needed [...] levothyroxine, 25 mcg= 1 Tab, Oral, Daily [place] 10 mg-325 mg oral tablet, 1 Tab, [...] # 0.58 x10(3)/uL (Low) 08/14/2021 16:02 EDT [place] % 7.1 % 08/15/2021 03:42 EDT [place] % 7.9 % 08/14/2021 16:02 EDT [place] # 0.50 K/uL 08/15/2021 03:42 EDT [place]er # 0.53 K/uL 08/14/2021 16:02 EDT Eos [...] (Low) 08/14/2021 16:02 EDT Electronically signed by [facility] Conversion Personal Shopper Cerner at 03/09/2023 8:47 PM CDT documented in this encounter Plan of Treatment Not on file documented as of this encounter Visit Diagnoses Not on filedocumented in this encounter Care Teams Bottle Caser Relationship Specialty Start Date End Date Reji Castro MD [address] [place] [id number] PCP - General Adolescent Medicine 10/02/22 documented as of this encounter
--- OUTSIDE RECORDS SUMMARY | 2025-05-24 10:51 | XMS_ITS | Encounter Summary ---
Author Organization [employer] ([place], [place], [place], [place]) Address [address] [place] [address] Care Team Providers Care Production Reproduction Manager Name Role Phone Reji Castro MD Primary Care Provider + [phone] Encounter Details Date Type Department Care Team (Late st Contact Info) Description 08/15/2021 Transcribed Document [facility] [place] [facility] [address] ProviderDelvin MD [address] [place] [address] [phone] Social History Tobacco Use Types Packs/Day Years Used Date Smoking Tobacco: Never Assessed Comments Unknown Sex and Gender Information Value Date Recorded Sex Assigned at Not on file Legal Sex Female 4:32 PM CDT Gender Identity Not on file Sexual Orientation Not on file documented as of this encounter Miscellaneous Notes * Cerner Conversion Note - Delvin eClestin MD - 08/15/2021 12:46 PM CDT Patient: [...] her port could not be accessed. Her store coordinator aspirated fluid from the port that was [...] contacted and told to report to [facility] because she had + blood cutures concerning for an infected portacath +/- PVE. 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 Review of Systems ROS reviewed as documented in chart Health Status Current medications: (Selected) Inpatient Medications Ordered ALPRAZolam: 0.5 mg, Oral, TID, PRN: Anxiety CeleXA: 40 mg, Oral, Daily Coumadin: 6 mg, Oral, Daily Coumadin: 7.5 mg, Oral, Daily DAPTOmycin + Sodium Chloride 0.9% intravenous solution 50 mL: 700 mg, 14 mL, 128 mL/Hr, IV Piggyback, Q90MSkr Dextrose 50% injection: 12.5 Gram, IV Push, Q15Min, PRN: Other (See Comment) Dextrose 50% injection: 25 Gram, IV Push, Q15Min, PRN: Other (See Comment) Dextrose 50% injection: 25 Gram, IV Push, Q15Min, PRN: Other (See Comment) Dextrose 50% injection: 25 Gram, IV Push, Q15Min, PRN: Other (See Comment) Lactated Ringers Injection intravenous solution 1,000 mL: 20 mL/Hr, IntraVENous [place] 10 mg-325 mg oral tablet: 1 Tab, [...] tenderness, No swelling, No deformity. Integumentary: Warm, [place]. Neurologic: Alert, Oriented, No focal deficits. Psychiatric: [...] of paula cath Electronically signed by Lanny [facility] Conversion Sports Psychologist Cerner at 03/09/2023 8:49 PM CDT documented in this encounter Plan of Treatment Not on file documented as of this encounter Visit Diagnoses Not on filedocumented in this encounter Care Teams Production Reproduction Manager Relationship Specialty Start Date End Date Reji Castro MD [address] [place] [phone] PCP - General Adolescent Medicine 10/02/22 documented as of this encounter
--- OUTSIDE RECORDS SUMMARY | 2025-05-24 10:51 | XMS_ITS | Encounter Summary ---
Author Organization [employer] ([place], [place], [place], [place]) Address [address] [place] [address] Care Team Providers Care Keno Writer / Runner Name Role Phone Reji Castro MD Primary Care Provider + [phone] Encounter Details Date Type Department Care Team (Late st Contact Info) Description 08/20/2021 Transcribed Document [facility] [place] [facility] [place] [address] ProviderDelvin MD [address] [place] [address] [phone] Social History Tobacco Use Types Packs/Day Years [...] 08/20/2021 9:59 EDT Electronically signed by Lanny [facility] Conversion Shank Threader Cerner at 03/09/2023 8:58 PM CDT documented in this encounter Plan of Treatment Not on file documented as of this encounter Visit Diagnoses Not on filedocumented in this encounter Care Teams Keno Writer / Runner Relationship Specialty Start Date End Date Reji Castro MD [address] [place] [id number] PCP - General Adolescent Medicine 10/02/22 documented as of this encounter
--- OUTSIDE RECORDS SUMMARY | 2025-05-24 10:51 | XMS_ITS | Encounter Summary ---
Author Organization [employer] ([place], [place], [place], [place]) Address [address] [place] [address] Care Team Providers Care International Broadcast Music Librarian Name Role Phone Reji Castro MD Primary Care Provider + [phone] Encounter Details Date Type Department Care Team (Late st Contact Info) Description 08/20/2021 Transcribed Document [facility] [place] [address] [place] [address] ProviderDelvin MD [address] [place] [address] [phone] Social History Tobacco Use Types Packs/Day Years [...] filedocumented in this encounter Care Teams International Broadcast Music Librarian Relationship Specialty Start Date End Date Reji Castro MD [address] [place] [id number] PCP - General Adolescent Medicine 10/02/22 documented as of this encounter
--- OUTSIDE RECORDS SUMMARY | 2025-05-24 10:51 | XMS_ITS | Encounter Summary ---
Author Organization [employer] ([place], [place], [place], [place]) Address [address] [place] [address] Care Team Providers Care Hyperbaric Technologist Name Role Phone Reji Castro MD Primary Care Provider + [phone] Encounter Details Date Type Department Care Team (Late st Contact Info) Description 08/20/2021 Transcribed Document [facility] [place] Family Medicine [address] [place] [address] ProviderDelvin MD [address] [place] [address] [phone] Social History Tobacco Use Types Packs/Day Years [...] 08/20/2021 16:48 EDT Electronically signed by Lanny [facility] Conversion Waterway Traffic Checker Cerner at 03/09/2023 8:32 PM CDT documented in this encounter Plan of Treatment Not on file documented as of this encounter Visit Diagnoses Not on filedocumented in this encounter Care Teams Hyperbaric Technologist Relationship Specialty Start Date End Date Reji Castro MD [address] [place] [phone] PCP - General Adolescent Medicine 10/02/22 documented as of this encounter
--- OUTSIDE RECORDS SUMMARY | 2025-05-24 10:51 | XMS_ITS | Encounter Summary ---
Author Organization [employer] ([place], [place], [place], [place]) Address [address] [place] [address] Care Team Providers Care Resident Care Aid Name Role Phone Reji Castro MD Primary Care Provider + [phone] Encounter Details Date Type Department Care Team (Late st Contact Info) Description 08/11/2021 Transcribed Document [facility] [place] [facility] [place] [address] ProviderDelvin MD [address] [place] [address] [phone] Social History Tobacco Use Types Packs/Day Years [...] 08/11/2021 22:44 EDT Electronically signed by Lanny [facility] Conversion Process Manager Cerner at 03/09/2023 8:55 PM CDT documented in this encounter Plan of Treatment Not on file documented as of this encounter Visit Diagnoses Not on filedocumented in this encounter Care Teams Resident Care Aid Relationship Specialty Start Date End Date Reji Castro MD [address] [place] [id number] PCP - General Adolescent Medicine 10/02/22 documented as of this encounter
--- OUTSIDE RECORDS SUMMARY | 2025-05-24 10:52 | XMS_ITS | Encounter Summary ---
Author Organization [employer] ([place], [place], [place], [place]) Address [address] [place] [address] Care Team Providers Care Music Education Director Name Role Phone Reji Castro MD Primary Care Provider + [phone] Encounter Details Date Type Department Care Team (Late st Contact Info) Description 08/12/2021 Transcribed Document [facility] [place] Medicine [facility] [place] [address] ProviderDelvin MD [address] [place] [address] [phone] Social History Tobacco Use Types Packs/Day Years [...] On: 08/12/2021 8:46 EDT by TAWNYA AVILES, SPECIAL SERVICES COORDINATOR Bronchodilator Assessment Score, RT Pulmonary History, Bronchodilator [...] Bronchodilator Assessment Score : 3 TAWNYA AVILES SPECIAL SERVICES COORDINATOR - 08/12/2021 8:46 EDT Electronically signed by Lanny, [facility] Conversion Soap Maker Cerner at 03/09/2023 8:59 PM CDT documented in this encounter Plan of Treatment Not on file documented as of this encounter Visit Diagnoses Not on filedocumented in this encounter Care Teams Music Education Director Relationship Specialty Start Date End Date Reji Castro MD [address] [place] [id number] PCP - General Adolescent Medicine 10/02/22 documented as of this encounter
--- OUTSIDE RECORDS SUMMARY | 2025-05-24 10:52 | XMS_ITS | Encounter Summary ---
Author Organization [employer] ([place], [place], [place], [place]) Address [address] [place] [address] Care Team Providers Care Rn Field Case Manager Name Role Phone Reji Castro MD Primary Care Provider + [phone] Encounter Details Date Type Department Care Team (Late st Contact Info) Description 08/19/2021 Transcribed Document [facility] [place] [facility] [place] [address] ProviderDelvin MD [address] [place] [address] [phone] Social History Tobacco Use Types Packs/Day Years [...] her port could not be accessed. Her tavern keeper aspirated fluid from the port that was evidently purulent. I have not yet been able to track down that culture. After the aspiration she developed fever to 103, severe CHEUNG, myalgias and arthralgias. She was admitted to [facility]. She was in the hospital for [...] On 08/08 she presented to a [facility] after she developed severe CHEUNG and myalgias w/o prominent fever. 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 Integumentary: Warm, [place]. Neurologic: Alert, Oriented, No focal deficits. Psychiatric: [...] filedocumented in this encounter Care Teams Rn Field Case Manager Relationship Specialty Start Date End Date Reji Castro MD [address] [place] [id number] PCP - General Adolescent Medicine 10/02/22 documented as of this encounter
--- OUTSIDE RECORDS SUMMARY | 2025-05-24 10:52 | XMS_ITS | Encounter Summary ---
Author Organization [employer] ([place], [place], [place], [place]) Address [address] [place] [address] Care Team Providers Care Manufacturing Maintenance Technician Name Role Phone Reji Castro MD Primary Care Provider + [phone] Encounter Details Date Type Department Care Team (Late st Contact Info) Description 08/14/2021 Transcribed Document [facility] [place] [facility] [place] [address] ProviderDelvin MD [address] [place] [address] [phone] Social History Tobacco Use Types Packs/Day Years [...] Preop Summary Primary Physician: NENA PEARSON MD-[facility] Finalized Date/Time: 08/14/21 09:52:23 Pt. Name: IRINA TAMAYO D.O.B./Sex: 1965 Female Med Rec #: [id number] Physician: VINCE BELLO MD Financial #: [id number] Pt. Type: I Room/Bed: 454/1 Admit/Disch: 08/11/21 21:21:00 - Institution: [facility] PreOp Case Times Entry 1 In Preop 08/14/21 06:28:00 Ready for Holding n/a Room Patient Ready for 08/14/21 06:46:00 Surgery Patient Out of Preop 08/14/21 07:32:00 Patient Out of n/a Holding Room Last Modified By: Charan Dutton Rn 08/14/21 09:52:22 [facility] PreOp Case Times Audit 08/14/21 09:52:22 Pipe Fitter Marine: [id number] Modifier: [id number] <+> 1 Patient Out of Preop Finalized By: Charan Dutton, Rn Document Signatures Signed By: Charan Dutton Rn 08/14/21 09:52 Electronically signed by Lanny [facility] Conversion Director Consumer Cerner at 03/09/2023 8:46 PM CDT documented in this encounter Plan of Treatment Not on file documented as of this encounter Visit Diagnoses Not on filedocumented in this encounter Care Teams Manufacturing Maintenance Technician Relationship Specialty Start Date End Date Reji Castro MD [address] [place] [id number] PCP - General Adolescent Medicine 10/02/22 documented as of this encounter
--- OUTSIDE RECORDS SUMMARY | 2025-05-24 10:52 | XMS_ITS | Encounter Summary ---
Author Organization [employer] ([place], [place], [place], [place]) Address [address] [place] [address] Care Team Providers Care Outdoor Studies Professor Name Role Phone Reji aCstro MD Primary Care Provider + [phone] Encounter Details Date Type Department Care Team (Late st Contact Info) Description 08/14/2021 Transcribed Document [facility] [place] Family Medicine [address] [place] [address] ProviderDelvin MD [address] [place] [address] [id number] Social History Tobacco Use Types Packs/Day Years Used Date Smoking Tobacco: Never Assessed Comments Unknown Sex and Gender Information Value Date Recorded Sex Assigned at Not on file Legal Sex Female 4:32 PM CDT Gender Identity Not on file Sexual Orientation Not on file documented as of this encounter Miscellaneous Notes * Cerner Conversion Note - Delvin ProviderMD - 08/14/2021 7:[address] [facility] Main OR IntraOp Summary Primary Physician: NENA PEARSON MD-SUR Finalized Date/Time: 08/18/21 09:41:55 Pt. Name: RONI IRINAMARCIO Latham D.O.B./Sex: 1965 Female Med Rec #: [id number] Physician: VINCE BELLO MD Financial #: [id number] Pt. Type: I Room/Bed: [facility]/ Admit/Disch: 08/11/21 21:21:00 - Institution: [facility] IntraOp Case Attendance Entry 1 Entry 2 Entry 3 Case Attendee NENA PEARSON MD-Erika Murry RN Poe, Kali JEREMIAH Role Performed Surgeon/Proceduralist, Police Judge, First Police Judge, Second First Time In 08/14/21 07:34:00 08/14/21 [...] Case Attendee Randee Swain, Scrub TAMELA PRITCHETT, COLLECTIONS ASSISTANT BORIS VEGAS, Pedro Pablo FIGUEROA-ANS Role Performed Scrub, First COLLECTIONS ASSISTANT/Nurse Industrial Hygenist Anesthesiologist of Record Time In 08/14/21 07:34:00 08/14/21 07:34:00 08/14/21 07:34:00 Time Out 08/14/21 08:17:00 08/14/21 08:17:00 08/14/21 08:17:00 Procedure Vascular Access Removal Vascular Access Removal Vascular Access Removal Other Attendee Superficial Wound Closed By: Last Modified By: Erika Montgomery, Erika Chand, Erika Chand, JEREMIAH 08/14/21 08:22:17 08/14/21 08:22:17 08/14/21 08:22:17 Entry 7 Case Attendee OTHER, ATTENDEE #1 Role Performed COLLECTIONS ASSISTANT/Nurse Industrial Hygenist Time In 08/14/21 07:34:00 Time Out 08/14/21 08:17:00 Procedure Vascular Access Removal Other Attendee JOEY HOBBS COLLECTIONS ASSISTANT STUDENT Superficial Wound Closed By: Last Modified By: Erika Montgomery RN 08/14/21 10:50:59 [facility] IntraOp Case Attendance Audit 08/14/21 10:50:59 Anesthesiology Fellow: LIAM Modifier: LIAM 7 <*> Procedure Vascular Access Removal 7 <*> Other Attendee JOEY PROCTOR COLLECTIONS ASSISTANT STUDENT 08/14/21 08:24:52 Anesthesiology Fellow: LAFAVEHM Modifier: LAFAVEHM <+> 7 Case Attendee <+> 7 Role Performed <+> 7 Time In <+> 7 Time Out <+> 7 Procedure <+> 7 Other Attendee 08/14/21 08:22:17 Anesthesiology Fellow: LAFAVEHM Modifier: LAFAVEHM 1 <+> Time In [...] CENTER IntraOp Case Times Audit 08/14/21 08:17:16 Anesthesiology Fellow: LAFAVEHM Modifier: LAFAVEHM <+> 1 Out Room Time <+> 1 Stop Time <+> 1 Stop Time 08/14/21 07:46:45 Anesthesiology Fellow: LAFAVEHM Modifier: LAFAVEHM <+> [address] [facility] IntraOp Cautery Entry 1 ESU Identification Cautery Type Monopolar ESU ID Number [id number] ID Type Hospital Number Cautery Settings Cut [...] SJ IntraOp Counts Final Audit 08/14/21 08:02:40 Anesthesiology Fellow: LIAM Modifier: LIAM 1 <*> Procedure Vascular [...] PEARSON. TRANSPORT TO FLOOR BY [facility] Last Modified By: Erika Montgomery RN 08/14/21 08:21:55 [facility] IntraOp Departure from OR Audit 08/14/21 08:21:55 Anesthesiology Fellow: LIAM Modifier: LAFBEAR 1 <*> Transfer/Handoff Comments TRANSPORT TO FLOOR BY [facility] 1 <+> [facility] [...] IntraOp Fire Risk Assessment Audit 08/14/21 07:49:49 Anesthesiology Fellow: LIAM Modifier: LAFAVEHM <+> 1 Fire Risk Assessment Verified Date/Time [facility] Intra General Case Spouter 1 Case Information OR OR 08 [facility]. [...] IntraOp General Case Data Audit 08/14/21 07:52:14 Anesthesiology Fellow: LIAM Modifier: LAFAVEHM <+> [address] [facility] [...] 1% w/ epinephrine 1:100,000 30ml vial - [id number] Route of LOCAL Administration Dose Dose 10 Unit of Measure ml Administered By NENA PEARSON MD-SUR Procedure Irrigation Last Modified By: Erika Montgomery RN 08/14/21 08:02:53 [facility] IntraOp Medication Admin Audit 08/14/21 08:02:53 Anesthesiology Fellow: LAFAVEHM Modifier: LAFAVEHM 1 <*> Medication/Irrigant lidocaine 1% w/ epinephrine 1:100,000 30ml vial - [id number] 1 <+> [facility]ose [facility] [...] CENTER IntraOp Patient Positioning Audit 08/14/21 07:23:01 Anesthesiology Fellow: LAFAVEHM Modifier: LAFAVEHM 1 <*> Procedure Vascular [...] CENTER IntraOp Sign Out Audit 08/14/21 08:22:10 Anesthesiology Fellow: LIAM Modifier: LAFAVEHM <+> 1 RN Sign [...] CENTER IntraOp Surgical Procedures Audit 08/14/21 08:22:14 Anesthesiology Fellow: LAFBEAR Modifier: LAFAVEHM 1 <*> Stop 08/14/21 07:48:13 Anesthesiology Fellow: LIAM Modifier: LIAM 1 <*> Start 1 [...] WATTSDR Correct Billing Electronically signed by Lanny [facility] Conversion Toolsmith Cerner at 03/09/2023 8:33 PM CDT documented in this encounter Plan of Treatment Not on file documented as of this encounter Visit Diagnoses Not on filedocumented in this encounter Care Teams Outdoor Studies Professor Relationship Specialty Start Date End Date Reji Castro MD [address] [place] [id number] PCP - General Adolescent Medicine 10/02/22 documented as of this encounter
--- OUTSIDE RECORDS SUMMARY | 2025-05-24 10:52 | XMS_ITS | Encounter Summary ---
Author Organization [employer] ([place], [place], [place], [place]) Address [address] [place] [address] Care Team Providers Care Head Of Art Name Role Phone Reji Castro MD Primary Care Provider + [phone] Encounter Details Date Type Department Care Team (Late st Contact Info) Description 08/25/2021 Transcribed Document [facility] [place] [address] ProviderDelvin MD [address] [place] [address] [id number] Social History Tobacco Use Types Packs/Day Years [...] than 8. she tells me that her frame stripper has recommended she stay above 8 for [...] cefTRIAXone: 2 Gram, 100 mL/Hr, IV Piggyback, [id number] diphenhydrAMINE: 25 mg, Oral, Q6H, PRN: Itching [...] Oral, BID cefTRIAXone 2 Gram, IV Piggyback, [id number] citalopram 20 mg tab 40 mg 2 [...] Bioprosthetic mitral valve replacement / SNOMED CT 517185397 / Confirmed Chronic kidney disease / SNOMED CT 7147360981 / Confirmed COPD - Chronic obstructive pulmonary disease / SNOMED CT 071439729 / Confirmed History of obstructive sleep apnea / IMO 62279180 / Confirmed HLD - Hyperlipidemia / SNOMED CT 666386529 / Confirmed HTN - Hypertension / SNOMED CT 5473200376 / Confirmed Canceled: Atrial fibrillation / SNOMED CT 73015129, Active Problems (25) AIHA (autoimmune hemolytic anemia) [...] 26.5 \ Radiology Results (Last 48 hours) [id number] -- 08/11/2021 21:21 CR Chest 1 Vw [...] Hold home meds SSI Depression Celexa Pain [place] 10 mg every 6 hours as needed CODE STATUS. Full code Dispo: H/H stable, will transfuse one unit prbcs to reach goal hgb f/u trop need therapeutic inr for discharge, pharm managing Time spent 26 minutes Electronically signed by Lanny, [facility] Conversion Silver Chaser Cerner at 03/09/2023 8:51 PM CDT documented in this encounter Plan of Treatment Not on file documented as of this encounter Visit Diagnoses Not on filedocumented in this encounter Care Teams Head Of Art Relationship Specialty Start Date End Date Reji Castro MD [address] [place] [id number] PCP - General Adolescent Medicine 10/02/22 documented as of this encounter
--- OUTSIDE RECORDS SUMMARY | 2025-05-24 10:52 | XMS_ITS | Encounter Summary ---
Author Organization [employer] ([place], [place], [place], [place]) Address [address] [place] [address] Care Team Providers Care Product Safety Lead Name Role Phone Reji Castro MD Primary Care Provider + [phone] Encounter Details Date Type Department Care Team (Late st Contact Info) Description 08/12/2021 Transcribed Document [facility] [place] Family Medicine [facility] [place] [address] ProviderDelvin MD [address] [place] [address] [id number] Social History Tobacco Use Types Packs/Day Years [...] port could not be accessed. Her digital product manager aspirated fluid from the port that [...] subsequently contacted and told to report to [facility] because she had + blood cutures concerning for an infected portacath +/- PVE. 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 [...] mg, 14 mL, 128 mL/Hr, IV Piggyback, [id number] DAPTOmycin + Sodium Chloride 0.9% intravenous solution 50 mL: 700 mg, 14 mL, 128 mL/Hr, IV Piggyback, C47HIes Dextrose 50% injection: 12.5 Gram, IV Push, [...] tenderness, No swelling, No deformity. Integumentary: Warm, [place]. Neurologic: Alert, Oriented, No focal deficits. Psychiatric: [...] -- Await CHUCHO Electronically signed by Lanny [facility] Conversion Telephone Plant Power Operator Cerner at 03/09/2023 9:02 PM CDT documented in this encounter Plan of Treatment Not on file documented as of this encounter Visit Diagnoses Not on filedocumented in this encounter Care Teams Product Safety Lead Relationship Specialty Start Date End Date Reji Castro MD [address] [place] [id number] PCP - General Adolescent Medicine 10/02/22 documented as of this encounter
--- OUTSIDE RECORDS SUMMARY | 2025-05-24 10:52 | XMS_ITS | Encounter Summary ---
Author Organization [employer] ([place], [place], [place], [place]) Address [address] [place] [address] Care Team Providers Care Gynecology Teacher Name Role Phone Reji Castro MD Primary Care Provider + [phone] Encounter Details Date Type Department Care Team (Late st Contact Info) Description 08/14/2021 Transcribed Document [facility] [place] Family Medicine [address] [place] [address] ProviderDelvin MD [address] [place] [address] [phone] Social History Tobacco Use Types Packs/Day Years [...] Author: CHELI BEASLEY MD-CAR Basic Information Primary Cosmetic Sales Assistant: Dr. Delmar Geronimo Bessemer Converter Blower: MD Nestor Subjective NAD Health Status Current [...] mL 700 mg 14 mL, IV Piggyback, [id number] famotidine 20 mg tab 20 mg 1 [...] of motion, Normal strength. Integumentary: Warm, Dry, [place]. Neurologic: Alert, Oriented. Psychiatric: Cooperative, Appropriate mood & affect. Results Review AUG 13 23:47 L 135 102 H 35 / H 114 4.2 29 H 1.80 \ SEP 22 23:47 \ L 8.1 / 5.5 206 / L 26.9 \ Cardiac Markers (Current Encounter/Past 24 Hours) CK 87 Units/Liter 08/13/2021 05:53 ProBNP 647 pg/mL HI 08/14/2021 00:14 Radiology Results (Last 48 hours) [id number] -- 08/11/2021 21:21 CR Abdomen 1 Vw [...] 4+ TR, no vegetation. Admitted [facility] 07/12, Negative CHUCHO, TTE for vegetation that [...] appropriate per primary hosp service & primary business solutions architect. Will sign-off, call if questions. RV w/ Dr. Sawyer 1 wk post DC. 08/13/21 Resume Toprol XL 25 mg QHS. Reinitiation of other HF meds as appropriate. 08/12/21 CHUCHO to assess for endocarditis & mechanical causes of hemolysis. Obtain records from [facility]. Check haptoglobin, LDH, reticulocyte count. Continue other current CV meds. documented in this encounter Plan of Treatment Not on file documented as of this encounter Visit Diagnoses Not on filedocumented in this encounter Care Teams Gynecology Teacher Relationship Specialty Start Date End Date Reji Castro MD [address] [place] [address] PCP - General Adolescent Medicine 10/02/22 documented as of this encounter
--- OUTSIDE RECORDS SUMMARY | 2025-05-24 10:52 | XMS_ITS | Encounter Summary ---
Author Organization [employer] ([place], [place], [place], [place]) Address [address] [place] [address] Care Team Providers Care Reports Analysis Manager Name Role Phone Reji Castro MD Primary Care Provider + [phone] Encounter Details Date Type Department Care Team (Late st Contact Info) Description 08/19/2021 Transcribed Document [facility] [place] [address] [place] [address] ProviderDelvin MD [address] [place] [address] [phone] Social History Tobacco Use Types Packs/Day Years [...] on filedocumented in this encounter Care Teams Reports Analysis Manager Relationship Specialty Start Date End Date Reji Castro MD [address] [place] [address] PCP - General Adolescent Medicine 10/02/22 documented as of this encounter
--- OUTSIDE RECORDS SUMMARY | 2025-05-24 10:52 | XMS_ITS | Encounter Summary ---
Author Organization [email or web address] ([place], [place], [place], [place]) Address [address] [place] [address] Care Team Providers Care Typecasting Machine Operator Name Role Phone Reji Castro MD Primary Care Provider + [phone] Encounter Details Date Type Department Care Team (Late st Contact Info) Description 08/25/2021 Transcribed Document [facility] [place] [facility] [place] [address] ProviderDelvin MD [address] [place], [place] 837101 Social History Tobacco Use Types Packs/Day Years [...] Spiritual : 2 Referral Reason Comment : LITIGATION ASSOCIATE in Room 454. Ministry Provided to : Patient Spiritual/Emotional Acuity : Medium Spiritual Framework : Integrated, provides strength/resource Active in a Zoroastrianism/[facility] : Yes Active in a Zoroastrianism/[facility] Comment : [facility] [place]. Advent Preference : Hoahaoism Spiritual Leader Requested : No Cheondoism Sacrament of the Sick/Anointing Needed : No Top Former Follow-up Needed : No Rome Burgos Chaplain-Non Cert - 08/25/2021 10:13 EDT Spiritual Assessment Patient's Community/Relationship : Strength in patient's life Supportive/Healthy Relationships : Yes Supportive Advent Community : Yes Patient's Sense of Meaning [...] : Yes Spiritual Assessment Comment/Summary Points : LITIGATION ASSOCIATE. PT is experiencing significant chest pain. She was desirous of prayer, explaining her involvement with her Hoahaoism bahai as well. One of her daugthers is a Orthopedic Surgery Nurse here at [facility]. She reported she is living in a rented house in [place] as her home in [place] [facility] [place] [facility]. Top Former provided pastoral presence, support, and prayer. Family; two daughters, two sisters, one brother, and their families. Spirital Assessment Comment/Summary Report : SPIRITUAL ASSESSMENT COMMENT/SUMMARY No qualifying data available. Rome Burgos Chaplain-Non Cert - 08/25/2021 10:13 EDT Interventions Advance Directive Information Provided : No Emotional Support : Empathic/Engaged listening, Established trust, Feelings expressed, Hope strengths identified, Meaning strengths identified, Relationship strengths identified Spiritual and Advent : Prayer shared Rome Burgos Chaplain-Non Cert - 08/25/2021 10:13 EDT Electronically signed by [facility] Conversion Knapsack Sprayer Cerner at 03/09/2023 8:33 PM CDT documented in this encounter Plan of Treatment Not on file documented as of this encounter Visit Diagnoses Not on filedocumented in this encounter Care Teams Typecasting Machine Operator Relationship Specialty Start Date End Date Reji Castro MD [address] [place] [id number] PCP - General Adolescent Medicine 10/02/22 documented as of this encounter
--- OUTSIDE RECORDS SUMMARY | 2025-05-24 10:52 | XMS_ITS | Encounter Summary ---
Author Organization [employer] ([place], [place], [place], [place]) Address [address] [place] [address] Care Team Providers Care Footwear Sales Coordinator Name Role Phone Reji Castro MD Primary Care Provider + [phone] Encounter Details Date Type Department Care Team (Late st Contact Info) Description 08/25/2021 Transcribed Document [facility] [place] [address] ProviderDelvin MD [address] [place] [address] [phone] Social History Tobacco Use Types Packs/Day Years [...] cefTRIAXone: 2 Gram, 100 mL/Hr, IV Piggyback, [id number]. citalopram: 40 mg, Oral, Daily. diphenhydrAMINE: 25 [...] floor. Thank you, Andrea Moraes, PharmD PGY1 Web Developer Pager: [phone]. [phone] Electronically signed by Lanny [facility] Conversion Steward/Stewardess Lounge Cerner at 03/09/2023 8:52 PM CDT documented in this encounter Plan of Treatment Not on file documented as of this encounter Visit Diagnoses Not on filedocumented in this encounter Care Teams Footwear Sales Coordinator Relationship Specialty Start Date End Date Reji Castro MD [address] [place] [id number] PCP - General Adolescent Medicine 10/02/22 documented as of this encounter
--- OUTSIDE RECORDS SUMMARY | 2025-05-24 10:52 | XMS_ITS | Encounter Summary ---
Author Organization [email or web address] ([place], [place], [place], [place]) Address [address] [place] [address] Care Team Providers Care Business Rules Developer Name Role Phone Reji Castro MD Primary Care Provider + [phone] Encounter Details Date Type Department Care Team (Late st Contact Info) Description 08/19/2021 Transcribed Document [facility] [place] [address] [place] [address] ProviderDelvin MD [address] [place] [address] [phone] Social History Tobacco Use Types Packs/Day Years [...] PROCEDURE PERFORMED: Right IJ PowerPort placement. MEDICAL DEVICE SALES CONSULTANT: Cherri Ya. ANESTHESIA: Local MAC. FINDINGS: An 8-Swedish single lumen PowerPort was placed using a [...] and J-wire followed by passage of the 8-Swedish single-lumen catheter. Once again, fluoroscopy was used [...] taken to the Recovery in stable condition. /[id number] Sandeep Holliday MD [facility]/TONYA / DOTTIE / ADRIL /[id number] Electronically signed by Lanny [facility] Conversion Construction Director Cerner at 03/09/2023 8:44 PM CDT documented in this encounter Plan of Treatment Not on file documented as of this encounter Visit Diagnoses Not on filedocumented in this encounter Care Teams Business Rules Developer Relationship Specialty Start Date End Date Reji Castro MD [address] [place] [address] PCP - General Adolescent Medicine 10/02/22 documented as of this encounter
--- OUTSIDE RECORDS SUMMARY | 2025-05-24 10:52 | XMS_ITS | Encounter Summary ---
Author Organization [employer] ([place], [place], [place], [place]) Address [address] [place] [address] Care Team Providers Care Radial Drill Operator For Plastic Name Role Phone Reji Castro MD Primary Care Provider + [phone] Encounter Details Date Type Department Care Team (Late st Contact Info) Description 08/16/2021 Transcribed Document [facility] [place] [facility] [place] [address] ProviderDelvin MD [address] [place] [address] [phone] Social History Tobacco Use Types Packs/Day Years [...] on filedocumented in this encounter Care Teams Radial Drill Operator For Plastic Relationship Specialty Start Date End Date Reji Castro MD [address] [place] [address] PCP - General Adolescent Medicine 10/02/22 documented as of this encounter
--- OUTSIDE RECORDS SUMMARY | 2025-05-24 10:52 | XMS_ITS | Encounter Summary ---
Author Organization [employer] ([place], [place], [place], [place]) Address [address] [place] [address] Care Team Providers Care Home Health Clinical Liaison Name Role Phone Reji Castro MD Primary Care Provider + [phone] Encounter Details Date Type Department Care Team (Late st Contact Info) Description 08/12/2021 Transcribed Document [facility] [place] [address] [place] [address] ProviderDelvin MD [address] [place] [address] [phone] Social History Tobacco Use Types Packs/Day Years [...] on filedocumented in this encounter Care Teams Home Health Clinical Liaison Relationship Specialty Start Date End Date Reji Castro MD [address] [place] [address] PCP - General Adolescent Medicine 10/02/22 documented as of this encounter
--- OUTSIDE RECORDS SUMMARY | 2025-05-24 10:52 | XMS_ITS | Encounter Summary ---
Author Organization [employer] ([place], [place], [place], [place]) Address [address] [place] [address] Care Team Providers Care Foreman/Project Manager Name Role Phone Reji Castro MD Primary Care Provider + [phone] Encounter Details Date Type Department Care Team (Late st Contact Info) Description 08/19/2021 Transcribed Document [facility] [place] [facility] [address] ProviderDelvin MD [address] [place] [address] [phone] Social History Tobacco Use Types Packs/Day Years [...] 15:34 EDT by MADINA LOVETT RN - Target WorkerOrthotist Prosthetist Progress Note Discharge Arrangements : Patient Post-Acute [...] Rounds? : Yes MADINA LOVETT RN - Target Worker - 08/19/2021 15:34 EDT Narrative Progress Note [...] will need home health and lvies in [place]. [facility] is a possibility. Historical [...] will need home health and lives in [place]. [facility] home [facility] is a possibility. CM will continue to follow. DCP: MADINA LOVETT RN - Target Worker - 08/18/21 15:47:49 (late entry from 08/15-) [...] and send referrals as appropriate. JULIO STEWART, JEREMIAH-Target Worker ED - 08/18/21 10:38:39 MADINA LOVETT, RN - Target Worker - 08/19/2021 15:34 EDT documented in this encounter Plan of Treatment Not on file documented as of this encounter Visit Diagnoses Not on filedocumented in this encounter Care Teams Foreman/Project Manager Relationship Specialty Start Date End Date Reji Castro MD [address] [place] [address] PCP - General Adolescent Medicine 10/02/22 documented as of this encounter
--- OUTSIDE RECORDS SUMMARY | 2025-05-24 10:52 | XMS_ITS | Encounter Summary ---
Author Organization [employer] ([place], [place], [place], [place]) Address [address] [place] [address] Care Team Providers Care Utility Pipe Layer Name Role Phone Reji Castro MD Primary Care Provider + [phone] Encounter Details Date Type Department Care Team (Late st Contact Info) Description 08/25/2021 Transcribed Document [facility] [place] Family [place] [address] [place] [address] ProviderDelvin MD [address] [place] [address] [phone] Social History Tobacco Use Types Packs/Day Years [...] On: 08/25/2021 10:48 EDT by Porfirio [employer] Manager Cert Lead Meds to Bed Enrollment Patient Enrollment Decision: : No/do not enroll in meds to bed program Reason for Declining Meds to Bed Program: : Prefer to use home pharmacy Porfirio [employer] Manager Cert Lead - 08/26/2021 11:11 EDT documented in this encounter Plan of Treatment Not on file documented as of this encounter Visit Diagnoses Not on filedocumented in this encounter Care Teams Utility Pipe Layer Relationship Specialty Start Date End Date Reji Castro MD [address] [place] [id number] PCP - General Adolescent Medicine 10/02/22 documented as of this encounter
--- OUTSIDE RECORDS SUMMARY | 2025-05-24 10:52 | XMS_ITS | Encounter Summary ---
Author Organization [employer] ([place], [place], [place], [place]) Address [address] [place] [address] Care Team Providers Care Car Hop Name Role Phone Reji Castro MD Primary Care Provider + [phone] Encounter Details Date Type Department Care Team (Late st Contact Info) Description 08/20/2021 Transcribed Document [facility] [place] [facility] [place] [address] ProviderDelvin MD [address] [place] [phone] Social History Tobacco Use Types Packs/Day Years [...] # 0.38 x10(3)/uL (Low) 08/20/2021 07:38 EDT [place] % 7.9 % 08/20/2021 07:38 EDT [place] # 0.64 K/uL 08/20/2021 07:38 EDT Eos [...] (Critical) 08/20/2021 15:16 EDT Electronically signed by [facility], [facility] Conversion Overlocker Cerner at 03/09/2023 8:31 PM CDT documented in this encounter Plan of Treatment Not on file documented as of this encounter Visit Diagnoses Not on filedocumented in this encounter Care Teams Car Hop Relationship Specialty Start Date End Date Reji Castro MD [address] [place] [id number] PCP - General Adolescent Medicine 10/02/22 documented as of this encounter
--- OUTSIDE RECORDS SUMMARY | 2025-05-24 10:52 | XMS_ITS | Encounter Summary ---
Author Organization [facility] ([place], [place], [place], [place]) Address [address] [place] [address] Care Team Providers Care Riding Instructor Name Role Phone Reji Castro MD Primary Care Provider [phone] Encounter Details Date Type Department Care Team (Late st Contact Info) Description 08/16/2021 Transcribed Document [facility] Radiology 1 [place] [address] Loren Solorzano MD [address] [place] [address] [place] [address] Social History Tobacco Use Types Packs/Day [...] mg, 14 mL, 128 mL/Hr, IV Piggyback, [id number] Dextrose 50% injection: 12.5 Gram, IV Push, [...] mL 700 mg 14 mL, IV Piggyback, [id number] famotidine 20 mg tab 20 mg 1 [...] Bioprosthetic mitral valve replacement / SNOMED CT 622934800 / Confirmed Chronic kidney disease / SNOMED CT 6882989583 / Confirmed COPD - Chronic obstructive pulmonary disease / SNOMED CT 112755705 / Confirmed History of obstructive sleep apnea / IMO 72703277 / Confirmed HLD - Hyperlipidemia / SNOMED CT 707153125 / Confirmed HTN - Hypertension / SNOMED CT 1491688793 / Confirmed Canceled: Atrial fibrillation / SNOMED CT 18602161, Active Problems (25) AIHA (autoimmune hemolytic anemia) [...] hrs) Last Charted Minimum Maximum Temp 98 ([facility] 10:50) 97.6 ([facility] 06:00) 98 ([facility] 18:00) Apical HR 76 ([facility] 20:32) 76 ([facility] 20:32) 76 ([facility] 20:32) Mon HR 81 ([facility] 10:50) 67 ([facility] 14:52) 85 ([facility] 18:00) Resp Rate 18 ([facility] 10:50) 14 ([facility] 23:00) 19 ([facility] 18:00) SBP 112 ([facility] 10:50) 95 ([facility] 14:52) 114 ([facility] 23:00) DBP 60 ([facility] 10:50) L 45 ([facility] 14:52) 63 ([facility] 18:00) MAP 74 ([facility] 10:50) 63 ([facility] 23:00) 83 ([facility] 18:00) SpO2 97 ([facility] 10:50) L 92 ([facility] 14:52) 99 ([facility] 03:39) General: Alert and oriented, No acute [...] EDT BIN HERNANDEZ, DO-INT Discontinued Medications: acetaminophen-hydrocodone ([place] 10 mg-325 mg oral tablet) 1 Tab, [...] Hold home meds SSI #Depression Celexa #Pain [place] 10 mg every 6 hours as needed [...] on filedocumented in this encounter Care Teams Riding Instructor Relationship Specialty Start Date End Date Reji Castro MD [address] [place] [id number] PCP - General Adolescent Medicine 10/02/22 documented as of this encounter
--- OUTSIDE RECORDS SUMMARY | 2025-05-24 10:52 | XMS_ITS | Encounter Summary ---
Author Organization [employer] ([place], [place], [place], [place]) Address [address] [place] [address] Care Team Providers Care Sales And Marketing Professional Name Role Phone Reji Castro MD Primary Care Provider + [phone] Encounter Details Date Type Department Care Team (Late st Contact Info) Description 08/25/2021 Transcribed Document [facility] [place] Family Medicine [facility] [place] [address] ProviderDelvin MD [address] [place], [place] [phone] Social History Tobacco Use Types Packs/Day Years [...] Patient stated she has chest pain, called MACHINE TENDER Team, called md. Vitals signs stable. Put zoll on patient. Stat ekg ordered, cxr and troponin. Patient transferred to [facility]. WILLIAMS HANEY RN - 08/25/2021 11:02 EDT documented in this encounter Plan of Treatment Not on file documented as of this encounter Visit Diagnoses Not on filedocumented in this encounter Care Teams Sales And Marketing Professional Relationship Specialty Start Date End Date Reji Castro MD [address] [place] [address] PCP - General Adolescent Medicine 10/02/22 documented as of this encounter
--- OUTSIDE RECORDS SUMMARY | 2025-05-24 10:52 | XMS_ITS | Encounter Summary ---
Author Organization [employer] ([place], [place], [place], [place]) Address [address] [place] [address] Care Team Providers Care Customer Resolution Specialist Name Role Phone Reji Castro MD Primary Care Provider + [phone] Encounter Details Date Type Department Care Team (Late st Contact Info) Description 08/12/2021 Transcribed Document [facility] [place] [facility] [place] [address] ProviderDelvin MD [address] [place] [phone] Social History Tobacco Use Types Packs/Day Years [...] Health Plan: [employer] P[employer] Policy Number: [id number] Authorization Number: Insurance 2 Health Plan: [place] Policy Number: [id number] Authorization Number: Insurance Primary Name : [employer] PPO Policy Number: [id number] Authorization Status-Primary : Awaiting callback Reference Number-Primary : Pend ref #[id number] Authorized Service Begin Date-Primary : 08/11/2021 EDT Authorization Comments-Primary : Pend ref no per Availity, reviewer has access to Marisa Historical Authorization Comments-Primary : No Authorization Comments Found JORGE VALLES, RN - 08/12/2021 14:07 EDT documented in this encounter Plan of Treatment Not on file documented as of this encounter Visit Diagnoses Not on filedocumented in this encounter Care Teams Customer Resolution Specialist Relationship Specialty Start Date End Date Reji Castro MD [address] [place] [address] PCP - General Adolescent Medicine 10/02/22 documented as of this encounter
--- OUTSIDE RECORDS SUMMARY | 2025-05-24 10:52 | XMS_ITS | Encounter Summary ---
Author Organization [employer] ([place], [place], [place], [place]) Address [address] [place] [address] Care Team Providers Care Construction Foreman Name Role Phone Reji Castro MD Primary Care Provider [phone] Encounter Details Date Type Department Care Team (Late st Contact Info) Description 08/17/2021 Transcribed Document [facility] Radiology 1 [place] [address] Loren Solorzano MD [address] [place] [address] [place] [address] Social History Tobacco Use Types Packs/Day Years [...] mg, 14 mL, 128 mL/Hr, IV Piggyback, [id number] Dextrose 50% injection: 12.5 Gram, IV Push, [...] mL 700 mg 14 mL, IV Piggyback, S79LDtn famotidine 20 mg tab 20 mg 1 [...] Bioprosthetic mitral valve replacement / SNOMED CT 162133943 / Confirmed Chronic kidney disease / SNOMED CT 8816296172 / Confirmed COPD - Chronic obstructive pulmonary disease / SNOMED CT 286808383 / Confirmed History of obstructive sleep apnea / IMO 47417243 / Confirmed HLD - Hyperlipidemia / SNOMED CT 059720991 / Confirmed HTN - Hypertension / SNOMED CT 0101160729 / Confirmed Canceled: Atrial fibrillation / SNOMED CT 93303331, Active Problems (25) AIHA (autoimmune hemolytic anemia) [...] Hold home meds SSI #Depression Celexa #Pain [place] 10 mg every 6 hours as needed [...] on filedocumented in this encounter Care Teams Construction Foreman Relationship Specialty Start Date End Date Reji Castro MD [address] [place] [address] PCP - General Adolescent Medicine 10/02/22 documented as of this encounter
--- OUTSIDE RECORDS SUMMARY | 2025-05-24 10:52 | XMS_ITS | Encounter Summary ---
Author Organization [employer] ([place], [place], [place], [place]) Address [address] [place] [address] Care Team Providers Care Cabin Cleaner Name Role Phone Reji Castro MD Primary Care Provider + [phone] Encounter Details Date Type Department Care Team (Late st Contact Info) Description 08/14/2021 Transcribed Document [facility] Family Medicine [address] [place] [address] ProviderDelvin MD [address] [place] [address]681 Social History Tobacco Use Types Packs/Day Years [...] back to her room in stable condition. /[id number] MD GERMAINE Pollard/TONYA / DOTTIE / DARIL /[id number] Electronically signed by Lanny, [facility] Conversion Qualified Craft Worker Electrician Cerner at 03/09/2023 8:43 PM CDT documented in this encounter Plan of Treatment Not on file documented as of this encounter Visit Diagnoses Not on filedocumented in this encounter Care Teams Cabin Cleaner Relationship Specialty Start Date End Date Reji Castro MD [address] [place] [address] PCP - General Adolescent Medicine 10/02/22 documented as of this encounter
--- OUTSIDE RECORDS SUMMARY | 2025-05-24 10:52 | XMS_ITS | Encounter Summary ---
Author Organization [employer] ([place], [place], [place], [place]) Address [address] [place] [address] Care Team Providers Care Waiter/Waitress Buffet Name Role Phone Reji Castro MD Primary Care Provider + [phone] Encounter Details Date Type Department Care Team (Late st Contact Info) Description 08/16/2021 Transcribed Document [facility] [place] Family Medicine [facility] [place] [address] ProviderDelvin MD [address] [place] [address] [phone] Social History Tobacco Use Types Packs/Day Years [...] Warfarin HPI: 56 y/o F presenting to [facility] with history of COPD, atrial [...] mg, 14 mL, 128 mL/Hr, IV Piggyback, [id number]. diphenhydrAMINE: 25 mg, Oral, Q6H, PRN: Itching. [...] questions. Thank you, Andrea Moraes, PharmD PGY1 Circuit Judge Pager: [phone], Ext. [phone] documented in this encounter Plan of Treatment Not on file documented as of this encounter Visit Diagnoses Not on filedocumented in this encounter Care Teams Waiter/Waitress Buffet Relationship Specialty Start Date End Date Reji Castro MD [address] [place] [address] PCP - General Adolescent Medicine 10/02/22 documented as of this encounter
--- OUTSIDE RECORDS SUMMARY | 2025-05-24 10:52 | XMS_ITS | Encounter Summary ---
Author Organization [employer] ([place], [place], [place], [place]) Address [address] [place] [address] Care Team Providers Care School Operations Manager Name Role Phone Reji Castro MD Primary Care Provider + [phone] Encounter Details Date Type Department Care Team (Late st Contact Info) Description 08/12/2021 Transcribed Document [facility] [address] [place] [address] ProviderDelvin MD [address] [place] [address] [phone] Social History Tobacco Use Types Packs/Day Years [...] difficulty recalling timeline of events. Discharged from [facility] approximately 3 weeks ago after being [...] mmol/L (Low) 08/11/2021 17:59 EDT Sodium Ur [place] 29 mMole/Liter 08/12/2021 03:40 EDT Troponin I [...] # 0.76 K/uL (Low) 08/11/2021 17:59 EDT [place] % 9.5 % 08/12/2021 00:22 EDT [place] % 8.9 % 08/11/2021 17:59 EDT [place] # 0.64 K/uL 08/12/2021 00:22 EDT [place] # 0.61 K/uL 08/11/2021 17:59 EDT Eos [...] Appearance CLEAR2 08/11/2021 17:59 EDT Urine Specific [place] 1.007 08/11/2021 17:59 EDT Urine pH Dipstick [...] SARS-CoV-2 (COVID19 PCR) Negative2 08/11/2021 19:38 EDT documented in this encounter Plan of Treatment Not on file documented as of this encounter Visit Diagnoses Not on filedocumented in this encounter Care Teams School Operations Manager Relationship Specialty Start Date End Date Reji Castro MD [address] [place] [id number] PCP - General Adolescent Medicine 10/02/22 documented as of this encounter
--- OUTSIDE RECORDS SUMMARY | 2025-05-24 10:52 | XMS_ITS | Encounter Summary ---
Author Organization [employer] ([place], [place], [place], [place]) Address [address] [place] [address] Care Team Providers Care Electrical Continuity Tester Name Role Phone Reji Castro MD Primary Care Provider + [phone] Encounter Details Date Type Department Care Team (Late st Contact Info) Description 08/19/2021 Transcribed Document [facility] [place] [facility] [place] [address] ProviderDelvin MD [address] [place] [phone] Social History Tobacco Use Types Packs/Day Years Used Date Smoking Tobacco: Never Assessed Comments Unknown Sex and Gender Information Value Date Recorded Sex Assigned at Not on file Legal Sex Female 4:32 PM CDT Gender Identity Not on file Sexual Orientation Not on file documented as of this encounter Miscellaneous Notes * Cerner Conversion Note - Historical ProviderMD - 08/19/2021 2:00 AM CDT Hemodialysis Charge Nurse Details Entered On: 08/19/2021 3:57 EDT Performed [...] filedocumented in this encounter Care Teams Electrical Continuity Tester Relationship Specialty Start Date End Date Reji Castro MD [address] [place] [id number] PCP - General Adolescent Medicine 10/02/22 documented as of this encounter
--- OUTSIDE RECORDS SUMMARY | 2025-05-24 10:52 | XMS_ITS | Encounter Summary ---
Author Organization [employer] ([place], [place], [place], [place]) Address [address] [place] [address] Care Team Providers Care Branch Retail Executive Name Role Phone Reji Castro MD Primary Care Provider + [phone] Encounter Details Date Type Department Care Team (Late st Contact Info) Description 08/19/2021 Transcribed Document [facility] [place] Family Medicine [facility] [place] [address] ProviderDelvin MD [address] [place] [phone] Social History Tobacco Use Types Packs/Day Years [...] filedocumented in this encounter Care Teams Branch Retail Executive Relationship Specialty Start Date End Date Reji Castro MD [address] [place] [address] PCP - General Adolescent Medicine 10/02/22 documented as of this encounter
--- OUTSIDE RECORDS SUMMARY | 2025-05-24 10:52 | XMS_ITS | Encounter Summary ---
Author Organization [employer] ([place], [place], [place], [place]) Address [address] [place] [address] Care Team Providers Care Tentering Machine Feeder Name Role Phone Reji Saldaña MD Primary Care Provider + [phone] Encounter Details Date Type Department Care Team (Late st Contact Info) Description 08/14/2021 Transcribed Document [facility] [facility] [place] [address] ProviderDelvin MD [address] [place] [phone] Social History Tobacco Use Types Packs/Day Years [...] On: 08/14/2021 16:00 EDT by ALFREDO SEQUEIRA, JEREMIAH-Float Nurse Initial Assessment I Previously Documented Living Environment [...] Patient's Home Caregiver Medical Durable Power of Line Ordering Clinician Name : No Legal Guardian : No ALFREDO SEQUEIRA RN-Float Nurse - 08/15/2021 8:27 EDT Initial Assessment II Sensory and Motor Deficits : None Current Home Treatments and Equipment : None ALFREDO SEQUEIRA RN-Float Nurse - 08/15/2021 8:27 EDT Discharge Needs I Anticipated Discharge Date : 08/16/2021 EDT Anticipated Discharge To, CM : Home with home health, Home with infusion therapy Current Home Treatment/Equipment : Current Home Treatment/Equipment No qualifying data available. Post Acute/Home Treatments : None Documentation Status Complete : Yes ALFREDO SEQUEIRA RN-Float Nurse - 08/15/2021 8:27 EDT Discharge Needs II Professional Skilled Services : Professional Skilled Services No qualifying data available. Needs Assistance with Transportation : No Discharge Options Discussed with Patient : DME, Home Health, Short term rehabilitation ALFREDO SEQUEIRA RN-Float Nurse - 08/15/2021 8:27 EDT Narrative Note Historical Narrative Note : rrs low boost 5 patient was admitted for staph infection /port removal . consults to neph, surg,ID. CHUCHO negative . patient 56 years old lives alone and is independent. patient face sheet address is wrong now address is : [address] [employer]. patient denied need for dme. possible need for hh she thinks [facility] is the only one in her area. patient states she might need 4 weeks IV abx . patient is agreeable to hh and iv abx at home . cm will follow ALFREDO SEQUEIRA RN-Float Nurse - 08/15/21 08:39:27 Narrative Note : rrs low boost 5 patient was admitted for staph infection /port removal . consults to neph, surg,ID. CHUCHO negative . patient 56 years old lives alone and is independent. patient face sheet address is wrong now address is : [address] [place]. patient denied need for dme. possible need for hh she thinks [facility] is the only one in her area. patient states she might need 4 weeks IV abx . patient is agreeable to hh and iv abx at home . family will transport . cm will follow ALFREDO SEQUEIRA, RN-Float Nurse - 08/15/2021 8:40 EDT Electronically signed by Lanny [facility] Conversion Gravity Manager Cerner at 03/09/2023 8:51 PM CDT documented in this encounter Plan of Treatment Not on file documented as of this encounter Visit Diagnoses Not on filedocumented in this encounter Care Teams Tentering Machine Feeder Relationship Specialty Start Date End Date Reji Saldaña MD [address] [place] [id number] PCP - General Adolescent Medicine 10/02/22 documented as of this encounter
--- OUTSIDE RECORDS SUMMARY | 2025-05-24 10:52 | XMS_ITS | Encounter Summary ---
Author Organization [employer] ([place], [place], [place], [place]) Address [address] [place] [address] Care Team Providers Care Heavy Equipment Supervisor Name Role Phone Reji Castro MD Primary Care Provider + [phone] Encounter Details Date Type Department Care Team (Late st Contact Info) Description 08/14/2021 Transcribed Document [facility] [place] [address] ProviderDelvin MD [address] [place] [address] [phone] Social History Tobacco Use Types Packs/Day Years [...] # 0.71 x10(3)/uL (Low) 08/13/2021 23:47 EDT [place] % 10.6 % (High) 08/13/2021 23:47 EDT [place] # 0.58 K/uL 08/13/2021 23:47 EDT Eos [...] (Low) 08/13/2021 18:40 EDT Electronically signed by [facility], [facility] Conversion Broomcorn Sorter Cerner at 03/09/2023 8:59 PM CDT documented in this encounter Plan of Treatment Not on file documented as of this encounter Visit Diagnoses Not on filedocumented in this encounter Care Teams Heavy Equipment Supervisor Relationship Specialty Start Date End Date Reji Castro MD [address] [place] [id number] PCP - General Adolescent Medicine 10/02/22 documented as of this encounter
--- OUTSIDE RECORDS SUMMARY | 2025-05-24 10:52 | XMS_ITS | Encounter Summary ---
Author Organization [email or web address] ([place], [place], [place], [place]) Address [address] [place] [address] Care Team Providers Care Biometrics Experimentalist Name Role Phone Reji Castro MD Primary Care Provider + [phone] Encounter Details Date Type Department Care Team (Late st Contact Info) Description 08/25/2021 Transcribed Document [facility] [place] Family [place] [facility] [place] [address] ProviderDelvin MD [address] [place] [address] [phone] Social History Tobacco Use Types Packs/Day Years [...] cefTRIAXone: 2 Gram, 100 mL/Hr, IV Piggyback, [id number] diphenhydrAMINE: 25 mg, Oral, Q6H, PRN: Itching [...] Oral, BID cefTRIAXone 2 Gram, IV Piggyback, U84OImk citalopram 20 mg tab 40 mg 2 [...] Bioprosthetic mitral valve replacement / SNOMED CT 021159046 / Confirmed Chronic kidney disease / SNOMED CT 8989568299 / Confirmed COPD - Chronic obstructive pulmonary disease / SNOMED CT 499633812 / Confirmed History of obstructive sleep apnea / IMO 43498887 / Confirmed HLD - Hyperlipidemia / SNOMED CT 797102680 / Confirmed HTN - Hypertension / SNOMED CT 7196163130 / Confirmed Canceled: Atrial fibrillation / SNOMED CT 50371033, Active Problems (25) AIHA (autoimmune hemolytic anemia) [...] on filedocumented in this encounter Care Teams Biometrics Experimentalist Relationship Specialty Start Date End Date Reji Castro MD [address] [place] [address] PCP - General Adolescent Medicine 10/02/22 documented as of this encounter
--- OUTSIDE RECORDS SUMMARY | 2025-05-24 10:52 | XMS_ITS | Encounter Summary ---
Author Organization [employer] ([place], [place], [place], [place]) Address [address] [place] [address] Care Team Providers Care Proposal Rep Name Role Phone Reji Castro MD Primary Care Provider + [phone] Encounter Details Date Type Department Care Team (Late st Contact Info) Description 08/12/2021 Transcribed Document [facility] [place] [address] [place] [address] ProviderDelvin MD [address] [place] [address] 835931 Social History Tobacco Use Types Packs/Day Years [...] on filedocumented in this encounter Care Teams Proposal Rep Relationship Specialty Start Date End Date Reji Castro MD [address] [place] [address] PCP - General Adolescent Medicine 10/02/22 documented as of this encounter
--- OUTSIDE RECORDS SUMMARY | 2025-05-24 10:52 | XMS_ITS | Encounter Summary ---
Author Organization [employer] ([place], [place], [place], [place]) Address [address] [place] [address] Care Team Providers Care Counter Checker Name Role Phone Reji Castro MD Primary Care Provider [phone] Encounter Details Date Type Department Care Team (Late st Contact Info) Description 08/19/2021 Transcribed Document [facility] Radiology 1 [place] [address] Loren Solorzano MD [address] [place] [address] [place] [address] Social History Tobacco Use Types Packs/Day Years [...] Bioprosthetic mitral valve replacement / SNOMED CT 898138474 / Confirmed Chronic kidney disease / SNOMED CT 5003318990 / Confirmed COPD - Chronic obstructive pulmonary disease / SNOMED CT 397958620 / Confirmed History of obstructive sleep apnea / IMO 71954296 / Confirmed HLD - Hyperlipidemia / SNOMED CT 195316205 / Confirmed HTN - Hypertension / SNOMED CT 6773793716 / Confirmed Canceled: Atrial fibrillation / SNOMED CT 65805196, Active Problems (25) AIHA (autoimmune hemolytic anemia) [...] hrs) Last Charted Minimum Maximum Temp 99.1 ([facility] 06:30) 98 ([facility] 00:00) 99.1 ([facility] 06:30) Apical HR 87 ([facility] 20:53) 87 ([facility] 20:53) 87 ([facility] 20:53) Mon HR 81 ([facility] 06:30) 72 ([facility] [...] ([facility] 21:00) 87 (AUG 18 18:17) SpO2 98 [...] data available Radiology Results (Last 48 hours) [id number] -- 08/11/2021 21:21 CR Chest 1 Vw [...] home meds SSI #Depression Celexa #Pain [place] 10 mg every 6 hours as needed [...] filedocumented in this encounter Care Teams Counter Checker Relationship Specialty Start Date End Date Reji Castro MD [address] [place] [address] PCP - General Adolescent Medicine 10/02/22 documented as of this encounter
--- OUTSIDE RECORDS SUMMARY | 2025-05-24 10:52 | XMS_ITS | Encounter Summary ---
Author Organization [employer] ([place], [place], [place], [place]) Address [address] [place] [address] Care Team Providers Care Community Services Coordinator Name Role Phone Reji Castro MD Primary Care Provider + [phone] Encounter Details Date Type Department Care Team (Late st Contact Info) Description 08/14/2021 Transcribed Document [facility] [place] [facility] [place] [address] ProviderDelvin MD [address] [place] [address] [phone] Social History Tobacco Use Types Packs/Day Years [...] Warfarin HPI: 56 y/o F presenting to [facility] with history of COPD, [...] mg, 14 mL, 128 mL/Hr, IV Piggyback, [id number]. docusate-senna: 1 Tab, Oral, BID. famotidine: 20 [...] Encounter/Past 24 Hours) Creatinine Level 1.80 mg/dL [place] 08/14/2021 07:29 Bun/Creatinine 19.4 08/14/2021 00:14 Estimated [...] out with any questions. Thank you, Andrea Moreas, PharmD PGY1 Refractory Worker Pager: [phone], Ext. [phone] Electronically signed by Lanny, [facility] Conversion Caregivers Homecare Cerner at 03/09/2023 8:49 PM CDT documented in this encounter Plan of Treatment Not on file documented as of this encounter Visit Diagnoses Not on filedocumented in this encounter Care Teams Community Services Coordinator Relationship Specialty Start Date End Date Reji Castro MD [address] [place] [id number] PCP - General Adolescent Medicine 10/02/22 documented as of this encounter
--- OUTSIDE RECORDS SUMMARY | 2025-05-24 10:52 | XMS_ITS | Encounter Summary ---
Author Organization [employer] ([place], [place], [place], [place]) Address [address] [place] [address] Care Team Providers Care Quality Control Systems Manager Name Role Phone Reji Castro MD Primary Care Provider + [phone] Encounter Details Date Type Department Care Team (Late st Contact Info) Description 08/12/2021 Transcribed Document [facility] [place] [facility] [place] [address] ProviderDelvin MD [address] [place] [address] [phone] Social History Tobacco Use Types Packs/Day Years Used Date Smoking Tobacco: Never Assessed Comments Unknown Sex and Gender Information Value Date Recorded Sex Assigned at Not on file Legal Sex Female 4:32 PM CDT Gender Identity Not on file Sexual Orientation Not on file documented as of this encounter Miscellaneous Notes * Cerner Conversion Note - Historical ProviderMD - 08/12/2021 2:00 AM CDT Retail Cosmetics Sales Beauty Advisor Details Entered On: 08/12/2021 0:22 EDT Performed [...] filedocumented in this encounter Care Teams Quality Control Systems Manager Relationship Specialty Start Date End Date Reji Castro MD [address] [place] [id number] PCP - General Adolescent Medicine 10/02/22 documented as of this encounter
--- OUTSIDE RECORDS SUMMARY | 2025-05-24 10:52 | XMS_ITS | Encounter Summary ---
Author Organization [employer] ([place], [place], [place], [place]) Address [address] [place] [address] Care Team Providers Care Fibreglass Laminator Name Role Phone Reji Castro MD Primary Care Provider + [phone] Encounter Details Date Type Department Care Team (Late st Contact Info) Description 08/14/2021 Transcribed Document [facility] [place] [facility] [address] ProviderDelvin MD [address] [place] [address] [phone] Social History Tobacco Use Types Packs/Day Years Used Date Smoking Tobacco: Never Assessed Comments Unknown Sex and Gender Information Value Date Recorded Sex Assigned at Not on file Legal Sex Female 4:32 PM CDT Gender Identity Not on file Sexual Orientation Not on file documented as of this encounter Miscellaneous Notes * Cerner Conversion Note - Historical ProviderMD - 08/14/2021 2:00 AM CDT 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
--- OUTSIDE RECORDS SUMMARY | 2025-05-24 10:52 | XMS_ITS | Encounter Summary ---
Author Organization [employer] ([place], [place], [place], [place]) Address [address] [place] [address] Care Team Providers Care Pbx Manager Name Role Phone Reji Castro MD Primary Care Provider + [phone] Encounter Details Date Type Department Care Team (Late st Contact Info) Description 08/25/2021 Transcribed Document [facility] [place] Family Medicine [address] [place] [address] ProviderDelvin MD [address] [place], [place] [phone] Social History Tobacco Use Types Packs/Day Years [...] Event : Transfer to telemetry Rapid Response Pbx Manager #1 : ROBERTO KOHLI RN Rapid Response Pbx Manager #2 : ROBERTO CAMARA, SCHOOL EXAMINER ROBERTO KOHLI RN - 08/25/2021 9:33 EDT [...] Chronic kidney disease, unspecified 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 failure, unspecified 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
--- OUTSIDE RECORDS SUMMARY | 2025-05-24 10:52 | XMS_ITS | Encounter Summary ---
Author Organization [employer] ([place], [place], [place], [place]) Address [address] [place] [address] Care Team Providers Care Associate Financial Analyst Name Role Phone Reji Castro MD Primary Care Provider + [phone] Encounter Details Date Type Department Care Team (Late st Contact Info) Description 08/19/2021 Transcribed Document [facility] [place] [facility] [place] [address] ProviderDelvin MD [address] [place] [address] [phone] Social History Tobacco Use Types Packs/Day Years [...] # 0.34 x10(3)/uL (Low) 08/19/2021 11:06 EDT [place] % 7.3 % 08/19/2021 11:06 EDT [place] # 0.79 K/uL 08/19/2021 11:06 EDT Eos [...] 08/18/2021 18:32 EDT Electronically signed by Lanny, [facility] Conversion Bottle Label Inspector Cerner at 03/09/2023 8:42 PM CDT documented in this encounter Plan of Treatment Not on file documented as of this encounter Visit Diagnoses Not on filedocumented in this encounter Care Teams Associate Financial Analyst Relationship Specialty Start Date End Date Reji Castro MD [address] [place] [phone] PCP - General Adolescent Medicine 10/02/22 documented as of this encounter
--- OUTSIDE RECORDS SUMMARY | 2025-05-24 10:52 | XMS_ITS | Encounter Summary ---
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 Details Entered On: 08/17/2021 1:07 EDT Performed On: 08/17/2021 2:00 EDT by Phyllis Quiros Lpn Order Details Transport Mode Order Detail : Ambulatory Isolation Precautions Order Detail : Standard Precautions Order Detail : 0 Lift/Transfer : Independent Central Line Order Detail : No Room Service : Appropriate Arterial Line : No Patient Needs Meds Crushed/Liquid : No Phyllis uQiros Lpn - 08/17/2021 1:07 EDT documented in this encounter Plan of Treatment Not on file documented as of this encounter Visit Diagnoses Not on filedocumented in this encounter Care Teams Knot Bumper Relationship Specialty Start Date End Date Reji Castro MD [address] [place] [id number] PCP - General Adolescent Medicine 10/02/22 documented as of this encounter
--- OUTSIDE RECORDS SUMMARY | 2025-05-24 10:52 | XMS_ITS | Encounter Summary ---
Author Organization [employer] ([place], [place], [place], [place]) Address [address] [place] [address] Care Team Providers Care Blocker And Polisher Gold Wheel Name Role Phone Reji Castro MD Primary Care Provider + [phone] Encounter Details Date Type Department Care Team (Late st Contact Info) Description 08/19/2021 Transcribed Document [facility] [place] [address] ProviderDelvin MD [address] [place] [phone] Social History Tobacco Use Types Packs/Day Years Used Date Smoking Tobacco: Never Assessed Comments Unknown Sex and Gender Information Value Date Recorded Sex Assigned at Not on file Legal Sex Female 4:32 PM CDT Gender Identity Not on file Sexual Orientation Not on file documented as of this encounter Miscellaneous Notes * Cerner Conversion Note - Delvin ProviderMD - 08/19/2021 7:30 AM CDT [facility] Main OR Preop Summary Primary Physician: NENA PEARSON [facility] Finalized Date/Time: 08/19/21 07:37:55 Pt. Name: IRINA TAMAYO D.O.B./Sex: 1965 Female Med Rec #: [id number] Physician: VINCE BELLO MD Financial #: [id number] Pt. Type: I Room/Bed: [facility]/1 Admit/Disch: 08/11/21 21:21:00 - Institution: [facility] PreOp Case Times Entry 1 In Preop 08/19/21 05:49:00 Ready for Holding n/a Room Patient Ready for 08/19/21 06:35:00 Surgery Patient Out of Preop 08/19/21 07:33:00 Patient Out of n/a Holding Room Last Modified By: Merle Hicks Rn 08/19/21 07:37:50 [facility] PreOp Case Times Audit 08/19/21 07:37:50 Grinder Machine Setter: MARITO Modifier: MFWARD <+> 1 Patient Out of Preop Finalized By: Merle Hicks Rn Document Signatures Signed By: Merle Hicks Rn 08/19/21 07:37 Electronically signed by Lanny [facility] Conversion Chipper Machine Operator Cerner at 03/09/2023 8:32 PM CDT documented in this encounter Plan of Treatment Not on file documented as of this encounter Visit Diagnoses Not on filedocumented in this encounter Care Teams Blocker And Polisher Gold Wheel Relationship Specialty Start Date End Date Reji Castro MD [address] [place] [id number] PCP - General Adolescent Medicine 10/02/22 documented as of this encounter
--- OUTSIDE RECORDS SUMMARY | 2025-05-24 10:52 | XMS_ITS | Encounter Summary ---
Author Organization [employer] ([place], [place], [place], [place]) Address [address] [place] [address] Care Team Providers Care Retail Warehouse Associate Name Role Phone Reji Castro MD Primary Care Provider + [phone] Encounter Details Date Type Department Care Team (Late st Contact Info) Description 08/19/2021 Transcribed Document [facility] [place] [address] [place] [address] ProviderDelvin MD [address] [place] [address] [phone] Social History Tobacco Use Types Packs/Day Years [...] filedocumented in this encounter Care Teams Retail Warehouse Associate Relationship Specialty Start Date End Date Reji Castro MD [address] [place] [phone] PCP - General Adolescent Medicine 10/02/22 documented as of this encounter
--- OUTSIDE RECORDS SUMMARY | 2025-05-24 10:52 | XMS_ITS | Encounter Summary ---
Author Organization [employer] ([place], [place], [place], [place]) Address [address] [place] [address] Care Team Providers Care Rabbit Fancier Name Role Phone Reji Castro MD Primary Care Provider + [phone] Encounter Details Date Type Department Care Team (Late st Contact Info) Description 08/14/2021 Transcribed Document [facility] [place] [facility] [place] [address] ProviderDelvin MD [address] [place] [address] [phone] Social History Tobacco Use Types Packs/Day Years [...] on filedocumented in this encounter Care Teams Rabbit Fancier Relationship Specialty Start Date End Date Reji Castro MD [address] [place] [id number] PCP - General Adolescent Medicine 10/02/22 documented as of this encounter
--- OUTSIDE RECORDS SUMMARY | 2025-05-24 10:52 | XMS_ITS | Encounter Summary ---
Author Organization [employer] ([place], [place], [place], [place]) Address [address] [place] [address] Care Team Providers Care Poly Operator Name Role Phone Reji Castro MD Primary Care Provider + [phone] Encounter Details Date Type Department Care Team (Late st Contact Info) Description 08/19/2021 Transcribed Document [facility] [place] [facility] [place] [address] ProviderDelvin MD [address] [place] [address] [phone] Social History Tobacco Use Types Packs/Day Years [...] cefTRIAXone: 2 Gram, 100 mL/Hr, IV Piggyback, [id number]. citalopram: 40 mg, Oral, Daily. diphenhydrAMINE: 50 [...] questions. Thank you, Andrea Moraes, PharmD PGY1 Plaster Model And Mold Maker Pager: [phone], Ext. [phone] Electronically signed by Lanny, [facility] Conversion Agency Trainer Cerner at 03/09/2023 8:43 PM CDT documented in this encounter Plan of Treatment Not on file documented as of this encounter Visit Diagnoses Not on filedocumented in this encounter Care Teams Poly Operator Relationship Specialty Start Date End Date Reji Castro MD [address] [place] [id number] PCP - General Adolescent Medicine 10/02/22 documented as of this encounter
--- OUTSIDE RECORDS SUMMARY | 2025-05-24 10:52 | XMS_ITS | Encounter Summary ---
Author Organization [employer] ([place], [place], [place], [place]) Address [address] [place] [address] Care Team Providers Care Psychometrist Name Role Phone Reji Castro MD Primary Care Provider + [phone] Encounter Details Date Type Department Care Team (Late st Contact Info) Description 08/19/2021 Transcribed Document [facility] [place] Family Medicine [address] [place] [address] ProviderDelvin MD [address] [place] [address] [phone] Social History Tobacco Use Types Packs/Day Years Used Date Smoking Tobacco: Never Assessed Comments Unknown Sex and Gender Information Value Date Recorded Sex Assigned at Not on file Legal Sex Female 4:32 PM CDT Gender Identity Not on file Sexual Orientation Not on file documented as of this encounter Miscellaneous Notes * Cerner Conversion Note - Delvin ProviderMD - 08/19/2021 7:51 AM CDT [facility] Main OR IntraOp Summary Primary Physician: NENA PEARSON MD-TATYANA Finalized Date/Time: 08/20/21 09:11:26 Pt. Name: TAMAYO IRINAMARCIO GhoshO.B./Sex: 1965 Female Med Rec #: [id number] Physician: VINCE BELLO MD Financial #: [id number] Pt. Type: I Room/Bed: [facility]/ Admit/Disch: 08/11/21 21:21:00 - Institution: [facility] IntraOp Case Attendance Entry 1 Entry 2 Entry 3 Case Attendee NENA PEARSON MD-ERNESTO FISCHER APRN, BURBERRY, KEITH MD-ANS GEOPHYSICAL SUPPORT SPECIALIST Role Performed Surgeon/Proceduralist, GEOPHYSICAL SUPPORT SPECIALIST/Nurse Contract Post Office Clerk Anesthesiologist of First Record Time In 08/19/21 [...] YULIA JIM, SCRUB Josh Rivera, ALICIA SOTELO, DISHTANK OPERATOR/CSA TECH Role Performed Vendor Representatives, First Crane Engineer, First Scrub, First Time In 08/19/21 07:29:00 08/19/21 07:29:00 08/19/21 07:29:00 Time Out 08/19/21 08:24:00 08/19/21 08:24:00 08/19/21 08:24:00 Procedure Vascular Access Vascular Access Vascular Access Insertion Insertion Insertion Other Attendee Superficial Wound Closed By: Last Modified By: Josh Rivera RN Pantano, Scott, Josh Perez, JEREMIAH 08/19/21 08:35:46 08/19/21 08:35:46 08/19/21 08:35:46 Entry 7 Case Attendee David Greene, Video Network Engineer Role Performed Division Head Time In 08/19/21 07:55:00 Time Out 08/19/21 08:07:00 Procedure Vascular Access Insertion Other Attendee Superficial Wound Closed By: Last Modified By: Josh Rivera RN 08/19/21 08:35:46 [facility] IntraOp Case Attendance Audit 08/19/21 08:35:46 Pesticide Use Medical Coordinator: JAZLYN Modifier: JAZLYN 1 <+> Time Out [...] <*> Procedure Vascular Access Insertion 08/19/21 08:07:27 Pesticide Use Medical Coordinator: JAZLYN Modifier: PANTANOS 1 <*> Procedure Vascular Access Insertion 2 <*> Procedure Vascular Access Insertion 3 <*> Procedure Vascular Access Insertion 4 <*> Procedure Vascular Access Insertion 5 <*> Procedure Vascular Access Insertion 6 <*> Procedure Vascular Access Insertion 7 <+> Time In 7 <+> Time Out 7 <*> Procedure Vascular Access Insertion 08/19/21 08:04:07 Pesticide Use Medical Coordinator: JAZLYN Modifier: PANTANOS <+> 7 Case Attendee <+> 7 Role Performed <+> 7 Procedure 08/19/21 08:00:27 Pesticide Use Medical Coordinator: JAZLYN Modifier: MAKENNAANOS 1 <*> Procedure Vascular Access Insertion 2 <*> Procedure Vascular Access Insertion 3 <*> Procedure Vascular Access Insertion 4 <+> Time In 4 <*> Procedure Vascular Access Insertion 5 <+> Time In 5 <*> Procedure Vascular Access Insertion 6 <+> Time In 6 <*> Procedure Vascular Access Insertion 08/19/21 07:52:21 Pesticide Use Medical Coordinator: JAZLYN Modifier: PANTANOS <+> 1 Procedure 2 <+> Time In 2 <*> Procedure Vascular Access Insertion 3 <+> Time In 3 <*> Procedure Vascular Access Insertion <+> 4 Case Attendee <+> 4 Role Performed <+> 4 Procedure <+> 5 Case Attendee <+> 5 Role Performed <+> 5 Procedure <+> 6 Case Attendee <+> 6 Role Performed <+> 6 Procedure [facility] IntraOp Case Times Entry 1 Patient In Room Time 08/19/21 07:29:00 Out Room Time 08/19/21 08:24:00 Anesthesia Start Time 08/19/21 07:29:00 Stop Time 08/19/21 08:24:00 Surgery / Procedure Times Start Time 08/19/21 07:51:00 Stop Time 08/19/21 08:17:00 Last Modified By: Josh Rivera RN 08/19/21 08:24:22 [facility] IntraOp Case Times Audit 08/19/21 08:24:22 Pesticide Use Medical Coordinator: JAZLYN Modifier: MAKENNAANOS <+> 1 Out Room Time <+> 1 Stop Time <+> 1 Stop Time 08/19/21 07:51:02 Pesticide Use Medical Coordinator: JAZLYN Modifier: JUDITHS <+> 1 Start Time [facility] IntraOp Cautery Entry 1 ESU Identification Cautery Type Monopolar ESU ID Number [id number] ID Type Hospital Number Cautery Settings Cut Setting 30 Coag Setting 30 ESU Grounding Pad Ground Pad Type Adult Grounding Pad Site Right Buttock Grounding Pad Josh Rivera RN Applied By Grounding Pad Site Intact Skin Condition Before Cautery Grounding Pad Site Intact Skin Condition After Cautery Last Modified By: Josh Rivera RN 08/19/21 07:52:52 [facility] IntraOp Communication Entry 1 Communication To Family/Significant other Communication By Josh Rivera RN Last Modified By: Josh Rivera RN 08/19/21 07:58:45 [facility] IntraOp Counts Verification Entry 1 Procedure Vascular Access Insertion Count Info Count Type Sponge, Sharps, Miscellaneous Counts Verification Baseline/pre-procedure Sequence Count Results Correct, surgeon notified Counts Performed By Count Performed By ALICIA MACIAS SCRUB (Scrub) TECH Count Performed By Josh Rivera RN (RN) Last Modified By: Josh Rivera RN 08/19/21 07:53:18 [facility] IntraOp Counts Final Entry 1 Procedure Vascular Access Insertion Final Count Info Count Type Sponge, Sharps, Miscellaneous Counts Verification Skin Closure/end of Sequence procedure Count Results Correct, surgeon notified Counts Performed By Count Performed By ALICIA MACIAS SCRUB (Scrub) TECH Count Performed By Josh Rivera RN (RN) Last Modified By: Josh Rivera RN 08/19/21 07:53:41 [facility] IntraOp Departure from OR Entry 1 Integumentary Assessment Integumentary WDL Assessment WDL Transfer/Handoff Transfer to Nursing unit Handoff Method Bedside/Face to face, Online nursing summary Post-op Transport Stretcher/[place] Via Patient Transport ERNESTO SOUSA APRN, Accompanied by GEOPHYSICAL SUPPORT SPECIALIST Last Modified By: Josh Rivera RN 08/19/21 08:02:48 [facility] IntraOp Departure from OR Audit 08/19/21 08:02:48 Pesticide Use Medical Coordinator: JAZLYN Modifier: JAZLYN 1 <*> Transfer to Ambulatory unit, Phase II 1 <+> Patient Transport Accompanied by [facility] IntraOp Dressing and Packing Entry 1 Type Dressing Location OPSITE Wound Dressing Item Skin Closure Glue Applied By YULIA JIM SCRUB TECH/OCTAVIO Last Modified By: Josh Rivera RN 08/19/21 07:54:28 [facility] IntraOp Fire Risk Assessment Entry [...] Modified By: Josh Rivera RN 08/19/21 07:53:55 [facility] Intra General Case Stroke Belt Sander Operator 1 Case Information OR OR 06 [facility] Case Level 1 Room Verified Yes Wound Class I - Clean Specialty General ASA Class 4 Diagnosis Preop Diagnosis IV Access Postop Same As Preop Yes Postop Diagnosis IV Access Last Modified By: Josh Rivera RN 08/19/21 07:58:27 [facility] IntraOp Intraoperative Assessment Entry 1 [...] Modified By: Josh Rivera RN 08/19/21 07:59:09 [facility] IntraOp Intraoperative Equipment Entry 1 Type Monitoring Equipment Intraop Monitoring Electrocardiogram Three lead placement (ECG) Electrode Placement Blood Pressure Non-Invasive BP Device Source Blood Pressure Arm, right upper Location Pulse Oximeter Hand, left Probe Site Antiembolic Devices Scopes Photo/Video Documentation Last Modified By: Josh Rivera RN 08/19/21 07:59:29 [facility] IntraOp Medication Admin Entry 1 Entry 2 Medication/Irrigant LIDOCAINE 1% WITH EPI Heplock 100units/ml 5ml 1:100,000 vial - [id number] Combo Med List Time Administered 08/19/21 07:59:00 08/19/21 07:59:00 Route of LOCAL HEP LOCK Administration Dose Dose 30 10 Unit of Measure ml ml Volume Administered By NENA PEARSON MD-SUR HARRIS, JOHN M, MD-SUR Procedure Irrigation Irrigant Volume In Irrigant Volume Out Last Modified By: Josh Rivera RN Pantano, Scott, RN 08/19/21 08:00:16 08/19/21 08:00:16 [facility] IntraOp Patient Positioning Entry 1 [...] By NENA PEARSON MD-SUR, ERNESTO SOUSA, SINDHU, GEOPHYSICAL SUPPORT SPECIALIST, Josh Rivera RN Position Verified Positioning Yes Verified by Anesthesia Positioning Yes Verified by Surgeon Last Modified By: Josh Rivera RN 08/19/21 07:54:11 [facility] IntraOp Sign In Entry 1 [...] Modified By: Josh Rivera RN 08/19/21 08:00:24 [facility] IntraOp Sign Out Entry 1 [...] Modified By: Josh Rivera RN 08/19/21 08:35:34 [facility] IntraOp Sign Out Audit 08/19/21 08:35:34 Pesticide Use Medical Coordinator: JUDITHKe Modifier: PANTANOS <+> 1 RN Sign Out Signature <+> 1 RN Sign Out Signature Date/Time <+> 1 Urinary Catheter Documented in IView [facility] IntraOp Skin Prep Entry 1 Procedure Vascular Access Insertion Prescribed N/A Pre-Surgical Prep Completed Prep Area CHIN THRU CHEST INCLUDE BILATERAL SHOULDERS Intraop Prep Prep Agents Chloraprep Hair Removal Last Modified By: Josh Rivera RN 08/19/21 07:58:31 [facility] IntraOp Surgical Procedures Entry 1 Procedure Vascular Access Insertion Additional (PORT A CATH PLACEMENT) Procedure Description Primary Procedure Yes Primary Surgeon NENA PEARSON MD-TATYANA Start 08/19/21 07:51:00 Stop 08/19/21 08:17:00 Anesthesia Type MAC Specialty General Wound Class I - Clean Last Modified By: Josh Rivera RN 08/19/21 08:35:09 [facility] IntraOp Surgical Procedures Audit 08/19/21 08:35:09 Pesticide Use Medical Coordinator: JAZLYN Modifier: MAKENNAANOS <+> 1 Stop [facility] IntraOp Temp Regulation Devices Entry 1 Temp Regulation Temperature Warm blankets Regulation Device Temperature Full body Regulation Site Temperature ERNESTO SOUSA APRN, Regulation Device GEOPHYSICAL SUPPORT SPECIALIST Applied by Last Modified By: Josh Rivera RN 08/19/21 07:54:19 [facility] IntraOP Time Out Entry 1 [...] Modified By: Josh Rivera RN 08/19/21 08:02:27 [facility] IntraOP Time Out Audit 08/19/21 08:02:27 Pesticide Use Medical Coordinator: JAZLYN Modifier: PANTANOS 1 <+> Beta Alessandra Administered 1 <*> Procedure to be Performed Vascular Access Insertion 08/19/21 08:00:58 Pesticide Use Medical Coordinator: JAZLYN Modifier: PANTANOS 1 <+> All activity [...] <+> Team Verbally Confirms Information 08/19/21 08:00:32 Pesticide Use Medical Coordinator: JAZLYN Modifier: PANTANOS <+> 1 Procedure to be Performed [facility] IntraOp X-Ray and Images Entry 1 X-Ray/Imaging Type Fluoroscopy Fluoroscopy Type C-Arm Site CHEST Broach Setter Name David Greene, Video Network Engineer Protective Devices Yes Used Last Modified By: Josh Rivera RN 08/19/21 08:04:48 Case Comments <None> Finalized By: WILNER DUPONT Document Signatures Signed By: Josh Rivera RN 08/19/21 08:35 WILNER DUPONT 08/20/21 09:11 Unfinalized History Date/Time Username Reason for Unfinalizing Freetext Reason for Unfinalizing 08/20/21 09:10 [place] Correct Billing Electronically signed by [facility] Conversion Shuttle Van Driver Cerner at 03/09/2023 8:49 PM CDT documented in this encounter Plan of Treatment Not on file documented as of this encounter Visit Diagnoses Not on filedocumented in this encounter Care Teams Psychometrist Relationship Specialty Start Date End Date Reji Castro MD [address] [place] [id number] PCP - General Adolescent Medicine 10/02/22 documented as of this encounter
--- OUTSIDE RECORDS SUMMARY | 2025-05-24 10:52 | XMS_ITS | Encounter Summary ---
Author Organization [employer] ([place], [place], [place], [place]) Address [address] [place] [address] Care Team Providers Care Superintendent Commissary Name Role Phone Reji Castro MD Primary Care Provider + [phone] Encounter Details Date Type Department Care Team (Late st Contact Info) Description 08/14/2021 Transcribed Document [facility] [place] [facility] [place] [address] ProviderDelvin MD [address] [place] [address] [phone] Social History Tobacco Use Types Packs/Day Years [...] # 0.71 x10(3)/uL (Low) 08/13/2021 23:47 EDT [place] % 10.6 % (High) 08/13/2021 23:47 EDT [place] # 0.58 K/uL 08/13/2021 23:47 EDT [place] [...] (Low) 08/13/2021 18:40 EDT Electronically signed by [facility], Sjh Conversion Product Representative Cerner at 03/09/2023 8:31 PM CDT documented in this encounter Plan of Treatment Not on file documented as of this encounter Visit Diagnoses Not on filedocumented in this encounter Care Teams Superintendent Commissary Relationship Specialty Start Date End Date Reji Castro MD [address] [place] [address] PCP - General Adolescent Medicine 10/02/22 documented as of this encounter
--- OUTSIDE RECORDS SUMMARY | 2025-05-24 10:53 | XMS_ITS | Encounter Summary ---
Author Organization [employer] ([place], [place], [place], [place]) Address [address] [place] [address] Care Team Providers Care Industrial Maintenance Mechanic Name Role Phone Reji Castro MD Primary Care Provider + [phone] Encounter Details Date Type Department Care Team (Late st Contact Info) Description 08/21/2021 Transcribed Document [facility] [place] [address] [place] [address] ProviderDelvin MD [address] [place] [address] [phone] Social History Tobacco Use Types Packs/Day Years [...] filedocumented in this encounter Care Teams Industrial Maintenance Mechanic Relationship Specialty Start Date End Date Reji Castro MD [address] [place] [address] PCP - General Adolescent Medicine 10/02/22 documented as of this encounter
--- OUTSIDE RECORDS SUMMARY | 2025-05-24 10:53 | XMS_ITS | Encounter Summary ---
Author Organization [employer] ([place], [place], [place], [place]) Address [address] [place] [address] Care Team Providers Care Tie Loader Name Role Phone Reji Castro MD Primary Care Provider + [phone] Encounter Details Date Type Department Care Team (Late st Contact Info) Description 08/16/2021 Transcribed Document [facility] [place] [facility] [address] ProviderDelvin MD [address] [place] [address] [phone] Social History Tobacco Use Types Packs/Day Years [...] Bed scale Routine Weight Entry Format : [place] Routine Weight, Pounds : 190 lb Routine Weight Calculation : 86.36 kg Height Source : Stated Height Entry Format : [place] Height, Feet : 5 ft Height, Inches : 4 Inch Clinical Height : 162.56 cm Body Surface Area (BSA), Routine : 1.92 m2 Body Mass Index (BMI), Routine : 32.68 kg/m2 JULIO LUND RN-PATIENT CARE BEDSIDE NON-EXEMPT - 08/16/2021 9:18 EDT Electronically signed by Lanny, [facility] Conversion Filing Or Registry Clerk Cerner at 03/09/2023 8:33 PM CDT documented in this encounter Plan of Treatment Not on file documented as of this encounter Visit Diagnoses Not on filedocumented in this encounter Care Teams Tie Loader Relationship Specialty Start Date End Date Reji Castro MD [address] [place] [address] PCP - General Adolescent Medicine 10/02/22 documented as of this encounter
--- OUTSIDE RECORDS SUMMARY | 2025-05-24 10:53 | XMS_ITS | Encounter Summary ---
Author Organization [employer] ([place], [place], [place], [place]) Address [address] [place] [address] Care Team Providers Care Home And School Visitor Name Role Phone Reji Castro MD Primary Care Provider + [phone] Encounter Details Date Type Department Care Team (Late st Contact Info) Description 08/11/2021 Transcribed Document [facility] [place] [facility] [place] [address] ProviderDelvin MD [address] [place] [address] [phone] Social History Tobacco Use Types Packs/Day Years [...] you, Noy Garrett, PharmD PGY-1 Resident Pager #[phone] Electronically signed by Lanny, [facility] Conversion Competitive Athlete Cerner at 03/09/2023 8:57 PM CDT documented in this encounter Plan of Treatment Not on file documented as of this encounter Visit Diagnoses Not on filedocumented in this encounter Care Teams Home And School Visitor Relationship Specialty Start Date End Date Reji Castro MD [address] [place] [address] PCP - General Adolescent Medicine 10/02/22 documented as of this encounter
--- OUTSIDE RECORDS SUMMARY | 2025-05-24 10:53 | XMS_ITS | Encounter Summary ---
Author Organization [employer] ([place], [place], [place], [place]) Address [address] [place] [address] Care Team Providers Care Guardian Ad Litem Name Role Phone Reji Castro MD Primary Care Provider + [phone] Encounter Details Date Type Department Care Team (Late st Contact Info) Description 08/11/2021 Transcribed Document [facility] [place] [address] [place] [address] ProviderDelvin MD [address] [place] [address] [phone] Social History Tobacco Use Types Packs/Day Years [...] 08/12/2021 9:31 EDT Electronically signed by Lanny [facility] Conversion Farmworker Livestock Cerner at 03/09/2023 9:00 PM CDT documented in this encounter Plan of Treatment Not on file documented as of this encounter Visit Diagnoses Not on filedocumented in this encounter Care Teams Guardian Ad Litem Relationship Specialty Start Date End Date Reji Castro MD [address] [place] [address] PCP - General Adolescent Medicine 10/02/22 documented as of this encounter
--- OUTSIDE RECORDS SUMMARY | 2025-05-24 10:53 | XMS_ITS | Encounter Summary ---
Author Organization [employer] ([place], [place], [place], [place]) Address [address] [place] [address] Care Team Providers Care Licensed Optician Name Role Phone Reji Castro MD Primary Care Provider + [phone] Encounter Details Date Type Department Care Team (Late st Contact Info) Description 08/21/2021 Transcribed Document [facility] [place] [facility] [place] [address] ProviderDelvin MD [address] [place] [address] [phone] Social History Tobacco Use Types Packs/Day Years [...] cefTRIAXone: 2 Gram, 100 mL/Hr, IV Piggyback, G25TLab. citalopram: 40 mg, Oral, Daily. diphenhydrAMINE: 50 [...] questions. Thank you, Andrea Moraes, PharmD PGY1 Nonprofit Fundraiser Pager: [phone], Ext. [phone] documented in this encounter Plan of Treatment Not on file documented as of this encounter Visit Diagnoses Not on filedocumented in this encounter Care Teams Licensed Optician Relationship Specialty Start Date End Date Reji Castro MD [address] [place] [address] PCP - General Adolescent Medicine 10/02/22 documented as of this encounter
--- OUTSIDE RECORDS SUMMARY | 2025-05-24 10:53 | XMS_ITS | Encounter Summary ---
Author Organization [employer] ([place], [place], [place], [place]) Address [address] [place] [address] Care Team Providers Care Hospitality Manager Name Role Phone Reji Castro MD Primary Care Provider + [phone] Encounter Details Date Type Department Care Team (Late st Contact Info) Description 08/21/2021 Transcribed Document [facility] [place] Family Medicine [address] [place] [address] ProviderDelvin MD [address] [place] [address] [phone] Social History Tobacco Use Types Packs/Day Years [...] 15:08 EDT by MADINA LOVETT RN - Roof DesignerRealty Specialist Progress Note Discharge Arrangements : Patient [...] Rounds? : Yes MADINA LOVETT RN - Roof Designer - 08/21/2021 15:08 EDT Narrative Progress Note Narrative Progress Note : RRS Low Boost 5 Day 08/29 Patient was admitted for staph infection and port removal. She had a new port placed on 08/19. Patient needs to remain inpatient until her coumadin is at therapeutic level per MD in [facility]. Patient will need IV rocephin until 09/08. CM faxed the order to Urszula with [facility]. CM also faxed order for home health to [facility] which the patient states she has used [...] a therapeutic level per at [facility] Patient will need IV rocephin until 09/08. Patient will need home health and says she has used [facility] home health in the past. CM will refer her to them after final antibiotic order is placed. DCP: home with home health MADINA LOVETT RN - Roof Designer - 08/20/21 13:35:46 RRS Low Boost 5 Day 05/26 Patient was admitted for staph infection and port removal. She had a new port done on . 08/19. Patient needs to remain inpatient after surgery until her coumadin is at a therapeutic level per at [facility]. Waiting on culture results for final abx plan. May need IV abx at home via port. Patient will need home health and lvies in [place]. [facility] home health is a possibility. MADINA LVOETT RN - Roof Designer - 08/19/21 15:40:22 RRS Low Boost 5 [...] will need home health and lives in [place]. [facility] home health is a possibility. CM will continue to follow. DCP: MADINA LOVETT, RN - Roof Designer - 08/18/21 15:47:49 (late entry from 08/15-) [...] and send referrals as appropriate. JULIO STEWART, RN-Roof Designer ED - 08/18/21 10:38:39 MADINA LOVETT, JEREMIAH - Roof Designer - 08/21/2021 15:08 EDT Electronically signed by Lanny [facility] Conversion Teacher Adventure Education Cerner at 03/09/2023 8:32 PM CDT documented in this encounter Plan of Treatment Not on file documented as of this encounter Visit Diagnoses Not on filedocumented in this encounter Care Teams Hospitality Manager Relationship Specialty Start Date End Date Reji Castro MD [address] [place] [id number] PCP - General Adolescent Medicine 10/02/22 documented as of this encounter
--- OUTSIDE RECORDS SUMMARY | 2025-05-24 10:53 | XMS_ITS | Encounter Summary ---
Author Organization [email or web address] ([place], [place], [place], [place]) Address [address] [place] [address] Care Team Providers Care Sql Bi Developer Name Role Phone Reji Castro MD Primary Care Provider + [phone] Encounter Details Date Type Department Care Team (Late st Contact Info) Description 08/15/2021 Transcribed Document [facility] [place] [facility] [place] [address] ProviderDelvin MD [address] [place] [address] [phone] Social History Tobacco Use Types Packs/Day Years [...] on filedocumented in this encounter Care Teams Sql Bi Developer Relationship Specialty Start Date End Date Reji Castro MD [address] [place] [id number] PCP - General Adolescent Medicine 10/02/22 documented as of this encounter
--- OUTSIDE RECORDS SUMMARY | 2025-05-24 10:53 | XMS_ITS | Encounter Summary ---
Author Organization [facility] Address [address] [place] [address] Care Team Providers Care Explosive Ordnance Technician Name Role Phone Anna Marie Savage MD Primary Care Provider [phone] Reji Castro MD Primary Care Provider [phone] Encounter Details Date Type Department Care Team (Late st Contact Info) Description 07/09/2023 Orders Only External Location [address] [place] [address] Karen Benson MD [address] [place] [address] Social History Tobacco Use Types Packs/Day Years [...] documented as of this encounter Care Teams Explosive Ordnance Technician Relationship Specialty Start Date End Date Anna Marie Savage MD [address] [place], [place] [phone] PCP - General 04/04/21 12/07/23 Reji Castro MD [address] [place] [address] [address] [place] [address] PCP - General Internal Medicine 12/08/23 documented as of this encounter
--- OUTSIDE RECORDS SUMMARY | 2025-05-24 10:53 | XMS_ITS | Encounter Summary ---
Author Organization [employer] ([place], [place], [place], [place]) Address [address] [place] [address] Care Team Providers Care Lasting Floorworker Name Role Phone Reji Castro MD Primary Care Provider + [phone] Encounter Details Date Type Department Care Team (Late st Contact Info) Description 08/21/2021 Transcribed Document [facility] [place] [facility] [place] [address] ProviderDelvin MD [address] [place] [address] [phone] Social History Tobacco Use Types Packs/Day Years Used Date Smoking Tobacco: Never Assessed Comments Unknown Sex and Gender Information Value Date Recorded Sex Assigned at Not on file Legal Sex Female 4:32 PM CDT Gender Identity Not on file Sexual Orientation Not on file documented as of this encounter Miscellaneous Notes * Cerner Conversion Note - Historical ProviderMD - 08/21/2021 2:00 AM CDT Assurance Engineer Details Entered On: 08/21/2021 6:32 EDT Performed [...] on filedocumented in this encounter Care Teams Lasting Floorworker Relationship Specialty Start Date End Date Reji Castro MD [address] [place] [address] PCP - General Adolescent Medicine 10/02/22 documented as of this encounter
--- OUTSIDE RECORDS SUMMARY | 2025-05-24 10:53 | XMS_ITS | Encounter Summary ---
Author Organization [employer] ([place], [place], [place], [place]) Address [address] [place] [address] Care Team Providers Care Industrial Gas Fitter Helper Name Role Phone Reji Castro MD Primary Care Provider + [phone] Encounter Details Date Type Department Care Team (Late st Contact Info) Description 08/22/2021 Transcribed Document [facility] [place] [facility] [place] [address] ProviderDelvin MD [address] [place], [place] 108661 Social History Tobacco Use Types Packs/Day Years [...] 08/22/2021 8:20 EDT by Lamar Sheppard Diet Telephone Operator Chief Nutrition Assessment Nutrition Assessment Reason : Other: LOS Lamar Sheppard Diet Telephone Operator Chief - 08/22/2021 8:20 EDT Nutrition Recommendations Dietitian [...] reported. No nutrition dx at this time. hydrology technician to rescreen in 7-10 days. Lamar Sheppard, Diet Telephone Operator Chief - 08/22/2021 12:04 EDT documented in this encounter Plan of Treatment Not on file documented as of this encounter Visit Diagnoses Not on filedocumented in this encounter Care Teams Industrial Gas Fitter Helper Relationship Specialty Start Date End Date Reji Castro MD [address] [place] [address] PCP - General Adolescent Medicine 10/02/22 documented as of this encounter
--- OUTSIDE RECORDS SUMMARY | 2025-05-24 10:53 | XMS_ITS | Encounter Summary ---
Author Organization [employer] ([place], [place], [place], [place]) Address [address] [place] [address] Care Team Providers Care Zoo Director Name Role Phone Reji Castro MD Primary Care Provider + [phone] Encounter Details Date Type Department Care Team (Late st Contact Info) Description 08/22/2021 Transcribed Document [facility] [place] [facility] [place] [address] ProviderDelvin MD [address] [place] [address] [id number] Social History Tobacco Use Types Packs/Day Years [...] cefTRIAXone: 2 Gram, 100 mL/Hr, IV Piggyback, [id number] diphenhydrAMINE: 25 mg, Oral, Q6H, PRN: Itching [...] Oral, BID cefTRIAXone 2 Gram, IV Piggyback, [id number] citalopram 20 mg tab 40 mg 2 [...] Bioprosthetic mitral valve replacement / SNOMED CT 091242547 / Confirmed Chronic kidney disease / SNOMED CT 5342098641 / Confirmed COPD - Chronic obstructive pulmonary disease / SNOMED CT 831373195 / Confirmed History of obstructive sleep apnea / IMO 69621408 / Confirmed HLD - Hyperlipidemia / SNOMED CT 776705505 / Confirmed HTN - Hypertension / SNOMED CT 9022959562 / Confirmed Canceled: Atrial fibrillation / SNOMED CT 18593387, Active Problems (25) AIHA (autoimmune hemolytic anemia) [...] Monitor GFR adjust medications. Electronically signed by [facility], [facility] Conversion Shearer Operator Cerner at 03/09/2023 8:43 PM CDT documented in this encounter Plan of Treatment Not on file documented as of this encounter Visit Diagnoses Not on filedocumented in this encounter Care Teams Zoo Director Relationship Specialty Start Date End Date Reji Castro MD [address] [place] [address] PCP - General Adolescent Medicine 10/02/22 documented as of this encounter
--- OUTSIDE RECORDS SUMMARY | 2025-05-24 10:53 | XMS_ITS | Encounter Summary ---
Author Organization [employer] ([place], [place], [place], [place]) Address [address] [place] [address] Care Team Providers Care Hobbing Machine Operator Name Role Phone Reji Castro MD Primary Care Provider + [phone] Encounter Details Date Type Department Care Team (Late st Contact Info) Description 08/21/2021 Transcribed Document [facility] [place] [facility] [address] ProviderDelvin MD [address] [place] [address] [phone] Social History Tobacco Use Types Packs/Day Years [...] cefTRIAXone: 2 Gram, 100 mL/Hr, IV Piggyback, F41FPvc diphenhydrAMINE: 25 mg, Oral, Q6H, PRN: Itching [...] Oral, BID cefTRIAXone 2 Gram, IV Piggyback, I44VZsl citalopram 20 mg tab 40 mg 2 [...] History of obstructive sleep apnea / IMO 03196830 / Confirmed Bioprosthetic mitral valve replacement / SNOMED CT 863864415 / Confirmed Chronic kidney disease / SNOMED CT 3388425950 / Confirmed COPD - Chronic obstructive pulmonary disease / SNOMED CT 490238989 / Confirmed HTN - Hypertension / SNOMED CT 4512366943 / Confirmed HLD - Hyperlipidemia / SNOMED CT 357523560 / Confirmed Amblyopia / SNOMED CT 1194738597 / Confirmed 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 / SNOMED CT 717963651 / Confirmed Myocardial infarction / SNOMED CT 86905438 / Confirmed Atrial fibrillation / SNOMED CT 54542070 / Confirmed GERD - Gastro-esophageal reflux disease / SNOMED CT 3608387938 / Confirmed Diverticulosis / SNOMED CT 9743244055 / Confirmed Hepatomegaly / SNOMED CT 496610215 / Confirmed Renal calculus / SNOMED CT 646117489 / Confirmed Ovarian cyst / SNOMED CT 691905096 / Confirmed Arthritis / SNOMED CT 7411898 / Confirmed Back pain / PNED [id number] / Confirmed Fibromyalgia / SNOMED CT 37109471 / Confirmed Restless legs syndrome / SNOMED CT 85875251 / Confirmed Diabetes mellitus type II / SNOMED CT 85851124 / Confirmed Thyroid disease / SNOMED CT 970909874 / Confirmed Edema / SNOMED CT 832080934 / Confirmed BLE neuropathy hands and feet / Confirmed frequent headache / Confirmed AIHA (autoimmune hemolytic anemia) / SNOMED CT 8872797039 / Confirmed Resolved: Bronchitis / SNOMED CT 37829452 Resolved: Bowel obstruction / SNOMED CT 550568113 Canceled: Atrial fibrillation / SNOMED CT 68823547 Canceled: Lazy eye / SNOMED CT 749760768 lazy eye blindness (left eye) Canceled: Heart failure / SNOMED CT 199711155 Canceled: Heart valve / SNOMED CT 932134102 Canceled: High blood pressure / SNOMED CT 32792440 Canceled: Hyperlipidemia / SNOMED CT 23429505 Canceled: Cardiac arrhythmia / SNOMED CT 4826902404 Canceled: COPD / SNOMED CT 00208566 Canceled: Diabetes mellitus / SNOMED CT 637178784 Canceled: Anemia, iron deficiency / SNOMED CT 240484425, Active Problems (25) AIHA (autoimmune hemolytic anemia) [...] EDT Height Source Stated Height Entry Format [place] Height/Length, ZIMBABWEAN (ft) 5 ft Height/Length ZIMBABWEAN 4 Inch CLINICALHEIGHT 162.56 cm Routine Weight Source Standing scale Routine Weight Entry Format [place] Routine Weight, Pounds 204 lb Routine Weight, [...] on filedocumented in this encounter Care Teams Hobbing Machine Operator Relationship Specialty Start Date End Date Reji Castro MD [address] [place] [address] PCP - General Adolescent Medicine 10/02/22 documented as of this encounter
--- OUTSIDE RECORDS SUMMARY | 2025-05-24 10:53 | XMS_ITS | Encounter Summary ---
Author Organization [employer] ([place], [place], [place], [place]) Address [address] [place] [address] Care Team Providers Care Infrastructure Manager Name Role Phone Reji Castro MD Primary Care Provider + [phone] Encounter Details Date Type Department Care Team (Late st Contact Info) Description 08/12/2021 Transcribed Document [facility] [place] [facility] [place] [address] ProviderDelvin MD [address] [place] [phone] Social History Tobacco Use Types Packs/Day Years [...] Vancomycin HPI: 56 y/o F [facility] [...] Encounter/Past 24 Hours) Creatinine Level 2.40 mg/dL [place] 08/12/2021 01:05 Bun/Creatinine 28.8 [place] 08/12/2021 01:05 Est. CrCl: 35 mL/min Intake [...] questions. Thank you, Andrea Moraes, PharmD PGY1 Rehabilitation Inspector Pager: [phone], Ext. [phone] Electronically signed by Lanny [facility] Conversion Orthodontic Laboratory Technician Cerner at 03/09/2023 8:45 PM CDT documented in this encounter Plan of Treatment Not on file documented as of this encounter Visit Diagnoses Not on filedocumented in this encounter Care Teams Infrastructure Manager Relationship Specialty Start Date End Date Reji Castro MD [address] [place] [address] PCP - General Adolescent Medicine 10/02/22 documented as of this encounter
--- OUTSIDE RECORDS SUMMARY | 2025-05-24 10:53 | XMS_ITS | Encounter Summary ---
Author Organization [employer] ([place], [place], [place], [place]) Address [address] [place] [address] Care Team Providers Care Transformation Architect Name Role Phone Reji Castro MD Primary Care Provider + [phone] Encounter Details Date Type Department Care Team (Late st Contact Info) Description 08/15/2021 Transcribed Document [facility] [place] [address] ProviderDelvin MD [address] [place] [address] Social History Tobacco Use Types Packs/Day [...] Historical ProviderMD - 08/15/2021 2:00 AM CDT Extractions Technologist Details Entered On: 08/15/2021 1:25 EDT Performed [...] on filedocumented in this encounter Care Teams Transformation Architect Relationship Specialty Start Date End Date Reji Castro MD [address] [place] [address] PCP - General Adolescent Medicine 10/02/22 documented as of this encounter
--- OUTSIDE RECORDS SUMMARY | 2025-05-24 10:53 | XMS_ITS | Encounter Summary ---
Author Organization [email or web address] ([place], [place], [place], [place]) Address [address] [place] [address] Care Team Providers Care Food And Drug Inspector Name Role Phone Reji Castro MD Primary Care Provider + [phone] Encounter Details Date Type Department Care Team (Late st Contact Info) Description 08/16/2021 Transcribed Document [facility] [place] [facility] [place] [address] ProviderDelvin MD [address] [place] [address] Social History Tobacco Use Types Packs/Day [...] Historical ProviderMD - 08/16/2021 2:00 AM CDT Caustic Pump Operator Details Entered On: 08/16/2021 2:41 EDT Performed [...] filedocumented in this encounter Care Teams Food And Drug Inspector Relationship Specialty Start Date End Date Reji Castro MD [address] [place] [address] PCP - General Adolescent Medicine 10/02/22 documented as of this encounter
--- OUTSIDE RECORDS SUMMARY | 2025-05-24 10:53 | XMS_ITS | Encounter Summary ---
Author Organization [employer] ([place], [place], [place], [place]) Address [address] [place] [address] Care Team Providers Care Station Engineer Main Line Name Role Phone Reji Castro MD Primary Care Provider + [phone] Encounter Details Date Type Department Care Team (Late st Contact Info) Description 08/21/2021 Transcribed Document [facility] [place] Family Medicine [facility] [place] [address] ProviderDelvin MD [address] [place] [address] [phone] Social History Tobacco Use Types Packs/Day Years [...] her port could not be accessed. Her clasp machine operator aspirated fluid from the port that was [...] antibiotics. On 08/08 she presented to a [facility] after she developed severe CHEUNG and myalgias w/o prominent fever. She was subsequently contacted and told to report to [facility] because she had + blood cutures concerning for an infected portacath +/- PVE. 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 Integumentary: Warm, [place]. Neurologic: Alert, Oriented, No focal deficits. Psychiatric: [...] on filedocumented in this encounter Care Teams Station Engineer Main Line Relationship Specialty Start Date End Date Reji Castro MD [address] [place] [address] PCP - General Adolescent Medicine 10/02/22 documented as of this encounter
--- OUTSIDE RECORDS SUMMARY | 2025-05-24 10:53 | XMS_ITS | Encounter Summary ---
Author Organization [employer] ([place], [place], [place], [place]) Address [address] [place] [address] Care Team Providers Care Manager Talent Name Role Phone Reji Castro MD Primary Care Provider + [phone] Encounter Details Date Type Department Care Team (Late st Contact Info) Description 08/12/2021 Transcribed Document [facility] [place] Medicine [facility] [place] [address] ProviderDelvin MD [address] [place] [address]691 Social History Tobacco Use Types Packs/Day Years [...] Author: CHELI BEASLEY MD-CAR Basic Information Primary Casting Machine Adjuster: Dr. Delmar Geronimo Emu Farm Worker: MD Nestor Chief Complaint Rule out endocarditis/h.o [...] She followed up that week with her Compensation Programs Manager, Dr. Thapa, who aspirated purulence from the port. 10-15 min later, she was driving home and developed fever 103, chills, headache and body aches. Presented to [facility] where she was admitted for IV [...] ID evaluation. She presented for evaluation at [facility]. In the ER she was found to [...] Instructions Problem list: All Problems Amblyopia / 2959445298 / Confirmed Arthritis / 5866565 / Confirmed Atrial fibrillation / 74055700 / Confirmed AIHA (autoimmune hemolytic anemia) / 2400187010 / Confirmed Back pain / [id number] / Confirmed Bowel obstruction / 242083332 / Confirmed Bronchitis / 51954962 / Confirmed Cardiac arrhythmia / 4432888525 / Confirmed Cardiomyopathy / 456996725 / Confirmed COPD / 87873057 / Confirmed Diabetes mellitus / 382410779 / Confirmed Diabetes mellitus type II / 06395190 / Confirmed Diverticulosis / 9156761221 / Confirmed Edema / 541908570 / Confirmed Fibromyalgia / 92197043 / Confirmed frequent headache / Confirmed GERD - Gastro-esophageal reflux disease / 8091693982 / Confirmed Heart failure / 122156381 / Confirmed Heart valve / 794779672 / Confirmed Hepatomegaly / 791521064 / Confirmed High blood pressure / 03133133 / Confirmed History of obstructive sleep apnea / 36763090 / Confirmed Hyperlipidemia / 35703523 / Confirmed Anemia, iron deficiency / 601959267 / Confirmed 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 Social & Psychosocial Habits Tobacco 12/18/2013 Tobacco Use Within Last Twelve Months No Smoking Status Former smoker Years of Tobacco Use 30 Month Tobacco Last Used quit 2005 Past Medical History: Active Atrial fibrillation (01856941) Bioprosthetic mitral valve replacement (625769059) Chronic kidney disease (6922243345) COPD - Chronic obstructive pulmonary disease (851099729) HLD - Hyperlipidemia (360985268) HTN - Hypertension (3032209396) Family History: Reviewed. Non-contributory. Procedure history: Replacement, mitral valve, with cardiopulmonary bypass (81811) on 01/19/2006 at 40 Years. left jaw pin. sternotomy. hernia repair, abdominal. sigmoid colon resection. Tendon sheath incision (eg, for trigger finger) (40448). jaw surgery, left. great toe surger, left. [...] of motion, Normal strength. Integumentary: Warm, Dry, [place]. Neurologic: Alert, Oriented. Psychiatric: Cooperative, Appropriate mood & affect. Review / Management AUG 12 00:22 L 134 L 98 H 69 / H 134 3.6 29 H 2.40 \ AUG 12 00:22 \ L 8.7 / 6.7 201 / L 28.3 \ Cardiac Markers (Current Encounter/Past 24 Hours) ProBNP 766 pg/mL OK 08/12/2021 01:12 Blood Gases (Current Encounter/Past 24 Hours) No Blood Gas Results Found (Past 24 Hours) Radiology Results (Last 48 hours) [id number] -- 08/11/2021 21:21 CR Chest 1 Vw [...] admission for coagulase negative staph bacteremia Admitted [facility] 07/12, Negative CHUCHO, TTE for vegetation that [...] of hemolysis. Obtain records from [facility]. Check haptoglobin, LDH, reticulocyte count. Continue other current CV meds. Electronically signed by Lanny, [facility] Conversion Haunted History Tour Guide Cerner at 03/09/2023 8:33 PM CDT documented in this encounter Plan of Treatment Not on file documented as of this encounter Visit Diagnoses Not on filedocumented in this encounter Care Teams Manager Talent Relationship Specialty Start Date End Date Reji Castro MD [address] [place] [address] PCP - General Adolescent Medicine 10/02/22 documented as of this encounter
--- OUTSIDE RECORDS SUMMARY | 2025-05-24 10:53 | XMS_ITS | Encounter Summary ---
Author Organization [employer] ([place], [place], [place], [place]) Address [address] [place] [address] Care Team Providers Care Block Handler Name Role Phone Reji Castro MD Primary Care Provider + [phone] Encounter Details Date Type Department Care Team (Late st Contact Info) Description 08/21/2021 Transcribed Document [facility] [place] Family Medicine [address] [place] [address] ProviderDelvin MD [address] [place] [address] [phone] Social History Tobacco Use Types Packs/Day Years [...] 08/21/2021 18:33 EDT Electronically signed by Lanny [facility] Conversion News Copy Editor Cerner at 03/09/2023 8:36 PM CDT documented in this encounter Plan of Treatment Not on file documented as of this encounter Visit Diagnoses Not on filedocumented in this encounter Care Teams Block Handler Relationship Specialty Start Date End Date Reji Castro MD [address] [place] [address] PCP - General Adolescent Medicine 10/02/22 documented as of this encounter
--- OUTSIDE RECORDS SUMMARY | 2025-05-24 10:53 | XMS_ITS | Encounter Summary ---
Author Organization [employer] ([place], [place], [place], [place]) Address [address] [place] [address] Care Team Providers Care It Sales Executive Name Role Phone Reji Castro MD Primary Care Provider + [phone] Encounter Details Date Type Department Care Team (Late st Contact Info) Description 08/16/2021 Transcribed Document [facility] [place] [facility] [place] [address] ProviderDelvin MD [address] [place] [address] [phone] Social History Tobacco Use Types Packs/Day Years [...] 5. Diabetes mellitus type II E11.9 6. terminologist current use of anticoagulant Z79.01 At risk for central venous catheter associated infection Z91.89 Chronic kidney disease N18.9 Medical screening exam [id number] Medications Inpatient acetaminophen, 650 mg= 2 Tab, [...] penicillins propafenone theophylline Electronically signed by Lanny, [facility] Conversion Clerical Adjudicator Cerner at 03/09/2023 8:52 PM CDT documented in this encounter Plan of Treatment Not on file documented as of this encounter Visit Diagnoses Not on filedocumented in this encounter Care Teams It Sales Executive Relationship Specialty Start Date End Date Reji Castro MD [address] [place] [address] PCP - General Adolescent Medicine 10/02/22 documented as of this encounter
--- OUTSIDE RECORDS SUMMARY | 2025-05-24 10:53 | XMS_ITS | Encounter Summary ---
Author Organization [employer] ([place], [place], [place], [place]) Address [address] [place] [address] Care Team Providers Care Retail Delivery Driver Name Role Phone Reji Castro MD Primary Care Provider + [phone] Encounter Details Date Type Department Care Team (Late st Contact Info) Description 08/16/2021 Transcribed Document [facility] [place] Family Medicine [address] [place] [address] ProviderDelvin MD [address] [place] [address] [phone] Social History Tobacco Use Types Packs/Day Years [...] 08/16/2021 17:03 EDT Electronically signed by Lanny [facility] Conversion Heat Curer Cerner at 03/09/2023 8:45 PM CDT documented in this encounter Plan of Treatment Not on file documented as of this encounter Visit Diagnoses Not on filedocumented in this encounter Care Teams Retail Delivery Driver Relationship Specialty Start Date End Date Reji Castro MD [address] [place] [address] PCP - General Adolescent Medicine 10/02/22 documented as of this encounter
--- OUTSIDE RECORDS SUMMARY | 2025-05-24 10:53 | XMS_ITS | Encounter Summary ---
Author Organization [employer] ([place], [place], [place], [place]) Address [address] [place] [address] Care Team Providers Care Master At Arms Name Role Phone Reji Castro MD Primary Care Provider + [phone] Encounter Details Date Type Department Care Team (Late st Contact Info) Description 08/16/2021 Transcribed Document [facility] [place] [facility] [place] [address] ProviderDelvin MD [address] [place] [address] [phone] Social History Tobacco Use Types Packs/Day Years [...] mL - 700 mg, IV Piggyback, Inj, [id number], infuse over 30 Minute(s), Routine Cardiovascular metoprolol [...] hrs) Last Charted Minimum Maximum Temp 98 ([facility] [place] 10:50) 97.6 ([facility] [place] 06:00) 98 ([facility] [place] 18:00) Apical HR 76 ([facility] [place] [place] 20:32) 76 ([facility] [place] 20:32) 76 ([facility] [place] 20:32) Mon HR 81 (AUG 16 10:50) 67 ([facility] [place] [place] 14:52) 85 ([facility] [place] [place] 18:00) Resp Rate 18 (AUG 16 10:50) 14 ([facility] [place] 23:00) 19 ([facility] [place] 18:00) SBP 112 ([facility] [place] [place] 10:50) 95 ([facility] [place] 14:52) 114 ([facility] [place] [place] 23:00) DBP 60 ([facility] [place] [place] 10:50) L 45 ([facility] [place] [place] 14:52) 63 ([facility] [place] [place] 18:00) MAP 74 ([facility] [place] [place] 10:50) 63 ([facility] [place] [place] 23:00) 83 ([facility] [place] [place] 18:00) SpO2 97 ([facility] [place] [place] 10:50) L 92 (SEP 24 14:52) 99 [...] on filedocumented in this encounter Care Teams Master At Arms Relationship Specialty Start Date End Date Reji Castro MD [address] [place] [address] PCP - General Adolescent Medicine 10/02/22 documented as of this encounter
--- OUTSIDE RECORDS SUMMARY | 2025-05-24 10:53 | XMS_ITS | Encounter Summary ---
Author Organization [employer] ([place], [place], [place], [place]) Address [address] [place] [address] Care Team Providers Care Hide Examiner Name Role Phone Reji Castro MD Primary Care Provider + [phone] Encounter Details Date Type Department Care Team (Late st Contact Info) Description 08/12/[address] [facility] Family Medicine [facility] [place] [address] ProviderDelvin MD [address] [place] [address] [phone] Social History Tobacco Use Types Packs/Day Years [...] 08/12/2021 5:00 EDT by Morelia Jose Care [facility] Unit Coord Height and Weight, Routine Routine Weight Source : Standing scale Routine Weight Entry Format : [place] Routine Weight, Pounds : 223 lb Routine Weight, Ounces : 4 oz Routine Weight Calculation : 101.48 kg Height Source : Stated Height Entry Format : [place] Height, Feet : 5 ft Height, Inches : 4 Inch Clinical Height : 162.56 cm Body Surface Area (BSA), Routine : 2.05 m2 Body Mass Index (BMI), Routine : 38.4 kg/m2 Morelia Jose Knock Out [facility] - 08/12/2021 5:18 EDT Electronically signed by Lanny, [facility] Conversion Principal Database Developer Cerner at 03/09/2023 8:49 PM CDT documented in this encounter Plan of Treatment Not on file documented as of this encounter Visit Diagnoses Not on filedocumented in this encounter Care Teams Hide Examiner Relationship Specialty Start Date End Date Reji Castro MD [address] [place] [address] PCP - General Adolescent Medicine 10/02/22 documented as of this encounter
--- OUTSIDE RECORDS SUMMARY | 2025-05-24 10:53 | XMS_ITS | Encounter Summary ---
Author Organization [employer] ([place], [place], [place], [place]) Address [address] [place] [address] Care Team Providers Care Electrician Shop Name Role Phone Reji Castro MD Primary Care Provider + [phone] Encounter Details Date Type Department Care Team (Late st Contact Info) Description 08/11/2021 Transcribed Document [facility] [place] [address] ProviderDelvin MD [address] [place] [address] [phone] Social History Tobacco Use Types Packs/Day Years Used Date Smoking Tobacco: Never Assessed Comments Unknown Sex and Gender Information Value Date Recorded Sex Assigned at Not on file Legal Sex Female 4:32 PM CDT Gender Identity Not on file Sexual Orientation Not on file documented as of this encounter Miscellaneous Notes * [employer]ner Conversion Note - Historical ProviderMD - 08/11/2021 4:16 PM CDT [place] Suicide Severity Rating Scale (C-SSRS) Entered On: 08/11/2021 18:49 EDT Performed On: 08/11/2021 18:46 EDT by MARIPOSA JACQUES RN [place] Suicide Severity Rating Scale (C-SSRS) CSSRS Past [...] filedocumented in this encounter Care Teams Electrician Shop Relationship Specialty Start Date End Date Reji Castro MD [address] [place] [address] PCP - General Adolescent Medicine 10/02/22 documented as of this encounter
--- OUTSIDE RECORDS SUMMARY | 2025-05-24 10:53 | XMS_ITS | Encounter Summary ---
Author Organization [employer] ([place], [place], [place], [place]) Address [address] [place] [address] Care Team Providers Care Hand Spring Repairer Helper Name Role Phone Reji Castro MD Primary Care Provider + [phone] Encounter Details Date Type Department Care Team (Late st Contact Info) Description 08/12/2021 Transcribed Document [facility] [place] [address] ProviderDelvin MD [address] [place] [phone] Social History Tobacco Use Types Packs/Day Years [...] filedocumented in this encounter Care Teams Hand Spring Repairer Helper Relationship Specialty Start Date End Date Reji Castro MD [address] [place] [address] PCP - General Adolescent Medicine 10/02/22 documented as of this encounter
--- OUTSIDE RECORDS SUMMARY | 2025-05-24 10:53 | XMS_ITS | Encounter Summary ---
Author Organization [employer] ([place], [place], [place], [place]) Address [address] [place] [address] Care Team Providers Care It Architect Name Role Phone Reji Castro MD Primary Care Provider [phone] Encounter Details Date Type Department Care Team (Late st Contact Info) Description 08/21/2021 Transcribed Document [facility] Radiology 1 [place] [address] Loren Solorzano MD [address] [place] [address] [place] [address] Social History Tobacco Use Types Packs/Day Years [...] cefTRIAXone: 2 Gram, 100 mL/Hr, IV Piggyback, [id number] diphenhydrAMINE: 25 mg, Oral, Q6H, PRN: Itching [...] Oral, BID cefTRIAXone 2 Gram, IV Piggyback, [id number] citalopram 20 mg tab 40 mg 2 [...] Bioprosthetic mitral valve replacement / SNOMED CT 097567829 / Confirmed Chronic kidney disease / SNOMED CT 9310995277 / Confirmed COPD - Chronic obstructive pulmonary disease / SNOMED CT 345784458 / Confirmed History of obstructive sleep apnea / IMO 48248889 / Confirmed HLD - Hyperlipidemia / SNOMED CT 749628334 / Confirmed HTN - Hypertension / SNOMED CT 8445794399 / Confirmed Canceled: Atrial fibrillation / SNOMED CT 13255727, Active Problems (25) AIHA (autoimmune hemolytic anemia) [...] 21 06:00) 97.6 (AUG 21 06:00) 98 ([facility] [place]:00) Apical HR 70 (AUG 20 20:27) 70 (AUG 20 20:27) 70 ([facility] 20:27) Mon HR 61 (AUG 21 06:00) 61 (AUG 21 06:00) 89 ([facility] [place]:00) Resp Rate 15 (AUG 21 06:00) 15 (AUG 21 06:00) 18 (AUG 20 11:00) SBP 101 (AUG 21 06:00) 95 (AUG 20 23:30) 127 ([facility] 11:00) DBP 68 (AUG 21 06:00) L 50 (AUG 20 15:00) 80 ([facility] 11:00) MAP 78 (AUG 21 [...] Hold home meds SSI #Depression Celexa #Pain [place] 10 mg every 6 hours as needed Dispo: Given patient with history of multiple transfusion we will keep patient in the hospital on heparin drip and Coumadin till INR therapeutic need IV abx, at least until 09/08. Discussed with nurse outreach case manager. and pharmcy Time spent 25 minutes documented in this encounter Plan of Treatment Not on file documented as of this encounter Visit Diagnoses Not on filedocumented in this encounter Care Teams It Architect Relationship Specialty Start Date End Date Reji Castro MD [address] [place] [id number] PCP - General Adolescent Medicine 10/02/22 documented as of this encounter
--- OUTSIDE RECORDS SUMMARY | 2025-05-24 10:54 | XMS_ITS | Encounter Summary ---
Author Organization [employer] ([place], [place], [place], [place]) Address [address] [place] [address] Care Team Providers Care Feed Mill Tender Name Role Phone Reji Castro MD Primary Care Provider [phone] Encounter Details Date Type Department Care Team (Late st Contact Info) Description 08/22/2021 Transcribed Document [facility] Radiology 1 [place] [address] Loren Solorzano MD [address] [place] [address] [place] [address] Social History Tobacco Use Types Packs/Day Years [...] cefTRIAXone: 2 Gram, 100 mL/Hr, IV Piggyback, [id number] diphenhydrAMINE: 25 mg, Oral, Q6H, PRN: Itching [...] Oral, BID cefTRIAXone 2 Gram, IV Piggyback, [id number] citalopram 20 mg tab 40 mg 2 [...] Bioprosthetic mitral valve replacement / SNOMED CT 204826774 / Confirmed Chronic kidney disease / SNOMED CT 5864608137 / Confirmed COPD - Chronic obstructive pulmonary disease / SNOMED CT 208399909 / Confirmed History of obstructive sleep apnea / IMO 45066968 / Confirmed HLD - Hyperlipidemia / SNOMED CT 979175947 / Confirmed HTN - Hypertension / SNOMED CT 7790327021 / Confirmed Canceled: Atrial fibrillation / SNOMED CT 40120317, Active Problems (25) AIHA (autoimmune hemolytic anemia) [...] Hold home meds SSI #Depression Celexa #Pain [place] 10 mg every 6 hours as needed CODE STATUS. Full code Dispo: Given patient with history of multiple transfusion we will keep patient in the hospital on heparin drip and Coumadin till INR therapeutic need IV abx, at least until 09/08. Discussed with case maker. and pharmcy Time spent 25 minutes documented in this encounter Plan of Treatment Not on file documented as of this encounter Visit Diagnoses Not on filedocumented in this encounter Care Teams Feed Mill Tender Relationship Specialty Start Date End Date Reji Castro MD [address] [place] [phone] PCP - General Adolescent Medicine 10/02/22 documented as of this encounter
--- OUTSIDE RECORDS SUMMARY | 2025-05-24 10:56 | XMS_ITS | Encounter Summary ---
Author Organization [employer] ([place], [place], [place], [place]) Address [address] [place] [address] Care Team Providers Care Mold Dresser Name Role Phone Reji Castro MD Primary Care Provider + [phone] Encounter Details Date Type Department Care Team (Late st Contact Info) Description 08/22/2021 Transcribed Document [facility] [place] [address] [place] [address] ProviderDelvin MD [address] [place] [phone] Social History Tobacco Use Types Packs/Day Years [...] on filedocumented in this encounter Care Teams Mold Dresser Relationship Specialty Start Date End Date Reji Castro MD [address] [place] [address] PCP - General Adolescent Medicine 10/02/22 documented as of this encounter
--- OUTSIDE RECORDS SUMMARY | 2025-05-24 10:57 | XMS_ITS | Encounter Summary ---
Author Organization [employer] ([place], [place], [place], [place]) Address [address] [place] [address] Care Team Providers Care Precision Agronomist Name Role Phone Reji Castro MD Primary Care Provider [phone] Encounter Details Date Type Department Care Team (Late st Contact Info) Description 10/02/2022 Outside Orders [facility] Central Scheduling 1 [place] [address] Marion Umana MD [address] [facility] [address] [place], [place] [id number] Stage 3 chronic kidney disease, unspecified whether [...] Primary documented in this encounter Care Teams Precision Agronomist Relationship Specialty Start Date End Date Reji Castro MD [address] [place] [address] PCP - General Adolescent Medicine 10/02/22 documented as of this encounter
--- OUTSIDE RECORDS SUMMARY | 2025-05-24 10:57 | XMS_ITS | Encounter Summary ---
Author Organization [employer] ([place], [place], [place], [place]) Address [address] [place] [address] Care Team Providers Care Glue Jointer Feeder Name Role Phone Reji Tovar MD Primary Care Provider + [phone] Encounter Details Date Type Department Care Team (Late st Contact Info) Description 08/27/2021 Transcribed Document [facility] Family Medicine [facility] [place] [address] ProviderDelvin MD [address] [place] [phone] Social History Tobacco Use Types Packs/Day Years [...] take to pcp f/u Depression Celexa Pain [place] 10 mg every 6 hours as needed Procedures SN - Proc - Procedure: Vascular Access Insertion (08/19/21 08:00:32)ATE OF PROCEDURE: 08/19/2021 SURGEON: Nena Holliday MD 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 PROCEDURE PERFORMED: Right IJ PowerPort placement. PRINTING TABLE HAND: Cherri Ya. ANESTHESIA: Local MAC. FINDINGS: An 8-Malawian single lumen PowerPort was placed using a [...] and J-wire followed by passage of the 8-Malawian single-lumen catheter. Once again, fluoroscopy was used [...] taken to the Recovery in stable condition. /[id number] Nena Holliday MD JMH/AQ [1] Operative Report [...] back to her room in stable condition. /[id number] MD GERMAINE Pollard/AQ / DOTTIE / MODL /[id number] Signature Line Electronically Signed on 08/14/2021 11:35 [...] past, CAD, mitral valve replacement presents to [facility] emergency department in [place] after being told by outside provider that [...] what doses. She was seen by our infantry weapons officer with no new findings, rec to f/u with her usual infantry weapons officer. Vital Signs T: 36.4 ??C TMIN: 36.4 [...] 2 g injection 2 Gram, IV Piggyback, [id number] Celexa 40 mg oral tablet 40 mg [...] Order Condition on Discharge improved Consulting Physicians LSIA RICKETTS MD-INF (bacteremia) NIRALI OQUENDO MD (? martínez on ckd) Elieser VERNON MD-TATYANA TANG, FITO CLIFTON MD-SIERRA MONTIEL MD-FUNMI NICOLAS MD-ANS GLEN, MD MAURA Current Diet Order Diet, Adult - Ordered -- Start: 08/19/21 9:34:00 EDT, 60 gm carbs:1236-1204 kori, Isolation: Standard Precautions, Instructions: Diabetic Diet Follow Up Labs/Studies Blood Gases (Current Encounter/Past 24 Hours) No Blood Gas Results Found (Past 24 Hours) Electrolytes(BMP) Results (Current Encounter/Past 24 Hours) Sodium Level 137 mmol/L 08/27/2021 05:09 Potassium Level 4.0 mmol/L 08/27/2021 05:09 Chloride Level 97 mmol/L LOW 08/27/2021 05:09 Carbon Dioxide Level 36 mmol/L IN 08/27/2021 05:09 Anion Gap 8 LOW 08/27/2021 05:09 Blood Urea Nitrogen 22 mg/dL 08/27/2021 05:09 Glucose Level 140 mg/dL IN 08/27/2021 05:09 Calcium Level 9.5 mg/dL 08/27/2021 05:09 Creatinine Level 1.40 mg/dL IN 08/27/2021 05:09 Cardiac Markers (Current Encounter/Past 24 [...] LOW 08/27/2021 05:09 Creatinine Level 1.40 mg/dL IN 08/27/2021 05:09 eGFR 47 mL/min/1.73m2 LOW 08/27/2021 05:09 Sodium Level 137 mmol/L 08/27/2021 05:09 Potassium Level 4.0 mmol/L 08/27/2021 05:09 Chloride Level 97 mmol/L LOW 08/27/2021 05:09 Carbon Dioxide Level 36 mmol/L IN 08/27/2021 05:09 Anion Gap 8 LOW 08/27/2021 05:09 Blood Urea Nitrogen 22 mg/dL 08/27/2021 05:09 Glucose Level 140 mg/dL IN 08/27/2021 05:09 Calcium Level 9.5 mg/dL 08/27/2021 05:09 Coagulation Results (Current Encounter/Past 24 Hours) PT 26.0 Second(s) IN 08/27/2021 05:04 INR 2.6 IN 08/27/2021 05:04 Creatinine Clearance (Current Encounter/Past 24 Hours) Creatinine Level 1.40 mg/dL IN 08/27/2021 08:46 Bun/Creatinine 15.7 08/27/2021 05:09 Estimated [...] 08/11/2021 20:36 EDT Electronically signed by Lanny [facility] Conversion Office Manager Receptionist Cerner at 03/09/2023 8:54 PM CDT documented in this encounter Plan of Treatment Not on file documented as of this encounter Visit Diagnoses Not on filedocumented in this encounter Care Teams Glue Jointer Feeder Relationship Specialty Start Date End Date Reji Tovar MD [address] [place] [address] PCP - General Adolescent Medicine 10/02/22 documented as of this encounter
--- OUTSIDE RECORDS SUMMARY | 2025-05-24 10:57 | XMS_ITS | Encounter Summary ---
Author Organization [employer] ([place], [place], [place], [place]) Address [address] [place] [address] Care Team Providers Care Rn Clinical Documentation Name Role Phone Reji Castro MD Primary Care Provider + [phone] Encounter Details Date Type Department Care Team (Late st Contact Info) Description 08/27/2021 Transcribed Document [facility] [place] [address] ProviderDelvin MD [address] [place] [phone] Social History Tobacco Use Types Packs/Day Years [...] On: 08/27/2021 14:36 EDT by SHAISTA WOLFF [facility] Final Discharge Planning Discharge Arrangements : Patient [...] Services (Related/SOC within 3 days)-06 SHAISTA WOLFF [facility] - 08/27/2021 14:36 EDT Final Narrative Note Final Narrative Note : Admission day 16, on room air to discharge home today, transport via s/o Jorge, who will assist with care. Home health for lab work and Port-a cath care via [email or web address] ([phone]/Radha Souza), IV Abx via [facility], they will deliver medication to patient's home this evening and patient was taught at bedside how to give herself the infusion, patient's follow up Coumadin Clinic (via [facility] [phone]/cBrett) appt set for 09/03/2021 at 0900. All other appointments in place via Virtual RN. Pt, RN aware and in agreement with plan. SHAISTA WOLFF Social Worker - 08/27/2021 14:36 EDT Electronically signed by Lanny [facility] Conversion Tomographic Tech Cerner at 03/09/2023 8:58 PM CDT documented in this encounter Plan of Treatment Not on file documented as of this encounter Visit Diagnoses Not on filedocumented in this encounter Care Teams Rn Clinical Documentation Relationship Specialty Start Date End Date Reji Castro MD [address] [place] [id number] PCP - General Adolescent Medicine 10/02/22 documented as of this encounter
--- OUTSIDE RECORDS SUMMARY | 2025-05-24 10:57 | XMS_ITS | Encounter Summary ---
Author Organization [employer] ([place], [place], [place], [place]) Address [address] [place] [address] Care Team Providers Care Maintenance Assistant Name Role Phone Reji Castro MD Primary Care Provider + [phone] Encounter Details Date Type Department Care Team (Late st Contact Info) Description 08/22/2021 Transcribed Document [facility] [place] [facility] [place] [address] ProviderDelvin MD [address] [place] [phone] Social History Tobacco Use Types Packs/Day Years Used Date Smoking Tobacco: Never Assessed Comments Unknown Sex and Gender Information Value Date Recorded Sex Assigned at Not on file Legal Sex Female 4:32 PM CDT Gender Identity Not on file Sexual Orientation Not on file documented as of this encounter Miscellaneous Notes * Cerner Conversion Note - Historical ProviderMD - 08/22/2021 2:00 AM CDT Process Development Engineer Details Entered On: 08/22/2021 4:12 EDT Performed [...] filedocumented in this encounter Care Teams Maintenance Assistant Relationship Specialty Start Date End Date Reji Castro MD [address] [place] [address] PCP - General Adolescent Medicine 10/02/22 documented as of this encounter
--- OUTSIDE RECORDS SUMMARY | 2025-05-24 10:57 | XMS_ITS | Encounter Summary ---
Author Organization [employer] ([place], [place], [place], [place]) Address [address] [place] [address] Care Team Providers Care Ship Fastener Name Role Phone Reji Castro MD Primary Care Provider [phone] Reason for Referral * Nuclear Medicine (Routine) - Closed Specialty Diagnoses / Procedures Referred By Contac t Referred To Contact Diagnoses Stage 3 chronic kidney disease, unspecified whether stage 3a or 3b CKD (HCC) Procedures NM parathyroid scan planar only Marion Umana MD Phone: tel: fax: Referral ID Status Reason Start Date Expiration Date Visits Re quested Visits Authorized [id number] Closed 10/02/2022 03/31/2023 1 1 Encounter Details Date Type Department Care Team (Late st Contact Info) Description 10/02/[address] [facility] Central Scheduling 1 [place] [address] Marion Umana MD [address] [facility] [address] [place] [address] Stage 3 chronic kidney disease, unspecified whether [...] (HCC) documented in this encounter Care Teams Ship Fastener Relationship Specialty Start Date End Date Reji Castro MD [address] [place] [address] PCP - General Adolescent Medicine 10/02/22 documented as of this encounter
--- OUTSIDE RECORDS SUMMARY | 2025-05-24 10:57 | XMS_ITS | Clinical Summary ---
Author Organization [employer] ([place], [place], [place], [place]) Address [address] [place] [address] Care Team Providers Care Key Holder Name Role Phone Reji Castro MD Primary Care Provider [phone] Allergies Active Allergy Reactions Criticality Noted Date [...] Date Yash rded Speak language other than Guinean at home Not on file 12/10/2023 Want [...] (1 - 1-dose 75+ series) 2038 Insurance [facility] Advance Directives For more information, please contact: [phone] Documents on File Type Date Recorded Patient Biostatistics Teacher Expl anation Advance Directives and Livin g Will 10/05/2022 8:36 AM Care Teams Key Holder Relationship Specialty Start Date End Date Reji Castro MD [address] [place] [address] PCP - General Adolescent Medicine 10/02/22
--- OUTSIDE RECORDS SUMMARY | 2025-05-24 10:57 | XMS_ITS | Encounter Summary ---
Author Organization [employer] ([place], [place], [place], [place]) Address [address] [place] [address] Care Team Providers Care Educational Technology Specialist Name Role Phone Reji Castro MD Primary Care Provider [phone] Reason for Referral * Ultrasound (Routine) - Closed Specialty Diagnoses / Procedures Referred By Contac t Referred To Contact Diagnoses Acute renal failure, unspecified acute renal failure type (HCC) Procedures Ultrasound head neck soft tissue Marion Umana MD Phone: tel: fax: Referral ID Status Reason Start Date Expiration Date Visits Re quested Visits Authorized [id number] Closed 09/28/2022 03/27/2023 1 1 Encounter Details Date Type Department Care Team (Late st Contact Info) Description 09/28/[address] [facility] Central Scheduling 1 [place] [address] Marion Umana MD [facility] [address] [place] [address] Acute renal failure, unspecified acute renal failure [...] Primary documented in this encounter Care Teams Educational Technology Specialist Relationship Specialty Start Date End Date Reji Castro MD [address] [place], [place] [address] PCP - General Adolescent Medicine 10/02/22 documented as of this encounter
--- OUTSIDE RECORDS SUMMARY | 2025-05-24 10:57 | XMS_ITS | Encounter Summary ---
Author Organization [employer] ([place], [place], [place], [place]) Address [address] [place] [address] Care Team Providers Care Ammonia Solution Preparer Name Role Phone Reji Castro MD Primary Care Provider + [phone] Encounter Details Date Type Department Care Team (Late st Contact Info) Description 08/22/2021 Transcribed Document [facility] [place] Medicine [facility] [place] [address] ProviderDelvin MD [address] [place] [address] [phone] Social History Tobacco Use Types Packs/Day Years [...] Warfarin HPI: 56 y/o F presenting to [facility] with history of COPD, atrial [...] cefTRIAXone: 2 Gram, 100 mL/Hr, IV Piggyback, [id number]. citalopram: 40 mg, Oral, Daily. diphenhydrAMINE: 25 [...] weekend. Thank you, Andrea Moraes, PharmD PGY1 Printing Roller Handler Pager: [phone] documented in this encounter Plan of Treatment Not on file documented as of this encounter Visit Diagnoses Not on filedocumented in this encounter Care Teams Ammonia Solution Preparer Relationship Specialty Start Date End Date Reji Castro MD [address] [place] [address] PCP - General Adolescent Medicine 10/02/22 documented as of this encounter
--- OUTSIDE RECORDS SUMMARY | 2025-05-24 10:57 | XMS_ITS | Encounter Summary ---
Author Organization [employer] ([place], [place], [place], [place]) Address [address] [place] [address] Care Team Providers Care Feed Adviser Name Role Phone Reji Castro MD Primary Care Provider + [phone] Encounter Details Date Type Department Care Team (Late st Contact Info) Description 08/27/2021 Transcribed Document [facility] [place] [address] [place] [address] ProviderDelvin MD [address] [place], [place] [address] Social History Tobacco Use Types Packs/Day Years [...] On: 08/27/2021 10:31 EDT by Sallie Solorzano [facility] Stroke/Warfarin Instructions Stroke/TIA Discharge Ins : N/A Sallie Solorzano [facility] - 08/27/2021 10:34 EDT Warfarin Discharge Ins : Open Sallie Solorzano [facility] - 08/27/2021 10:31 EDT Warfarin Discharge Instructions Physician to Manage Warfarin : Sallie Tavarez [facility] - 08/27/2021 10:34 EDT Indication for Warfarin Anticoagulation : Atrial fibrillation Warfarin Anticoagulation Disposition : Continuation of pre-hospital treatment Duration Warfarin Therapy, Fpc Duration Warfarin Therapy, Fpc : Yes Target INR : 2.5 - 3.5 Last INR Result : INR: 1.3 (High), Reference Range: (0.9 - 1.2), 08/20/2021 7:38 AM Notify Provider of Signs/Symptoms of : Significant bleeding, Clot Warfarin Dose/Frequency : 6 mg daily Sallie Solorzano [facility] - 08/27/2021 10:31 EDT Education Topics: Anticoagulant [...] : Tod Sawyer to manage Sallie Solorzano [facility] - 08/27/2021 10:34 EDT documented in this encounter Plan of Treatment Not on file documented as of this encounter Visit Diagnoses Not on filedocumented in this encounter Care Teams Feed Adviser Relationship Specialty Start Date End Date Reji Castro MD [address] [place] [address] PCP - General Adolescent Medicine 10/02/22 documented as of this encounter
--- OUTSIDE RECORDS SUMMARY | 2025-05-24 10:57 | XMS_ITS | Encounter Summary ---
Author Organization [employer] ([place], [place], [place], [place]) Address [address] [place] [address] Care Team Providers Care Inventory Control Coordinator Name Role Phone Reji Castro MD Primary Care Provider + [phone] Encounter Details Date Type Department Care Team (Late st Contact Info) Description 08/27/2021 Transcribed Document [facility] [place] Family Medicine [address] [place] [address] ProviderDelvin MD [address] [place] [address] Social History Tobacco Use Types Packs/Day Years [...] implanted port has two main parts: ??? [place]. The reservoir is the part where a [...] water are not available, use alcohol-based hand office services assistant. ? Change your dressing as told by [...] provider. Document Revised: 03/01/2020 Document Reviewed: 12/11/2017 THER[employer]ECTYS Patient Education ? 2020 TH[employer]ECTYS Inc. Cardiovascular Atrial Fibrillation Atrial fibrillation is [...] signals of the heart. ??? An ambulatory bus monitor to record your heart's activity for [...] provider. Document Revised: 05/01/2020 Document Reviewed: 05/01/2020 [employer] Patient Education ? 2020 [employer]. Caregiving Implanted Port Home Guide An implanted [...] implanted port has two main parts: ??? [place]. The reservoir is the part where a [...] water are not available, use alcohol-based hand office services assistant. ? Change your dressing as told by [...] provider. Document Revised: 03/01/2020 Document Reviewed: 12/11/2017 [employer] Patient Education ? 2020 THERAVECTYS Inc. Endocrinology Diabetes Mellitus and Nutrition, Adult [...] Carrots. Green beans. Tomatoes. Peppers. Onions. Cucumbers. Delight sprouts. Grains Whole grains, such as whole-wheat [...] Do I need to meet with a nurse informatics educator? Do I need to meet with a dietitian? What number can I call if I have questions? When are the best times to check my blood glucose? Where to find more information: ??? [place] Diabetes Association: diabetes.org ??? Academy of Nutrition and Dietetics: www.eatright.org ??? National [place] of Diabetes and Digestive and Kidney Diseases: [...] provider. Document Revised: 10/15/2020 Document Reviewed: 10/15/2020 [employer] Patient Education ? 2020 TH[employer]YS Inc. Hematology Warfarin Coagulopathy Warfarin coagulopathy refers [...] stopping any new medicines. Many prescription and eixe-cvz-ncozkvc medicines can interfere with warfarin. This includes wcnv-luv-llpqibl vitamins, dietary supplements, herbal medicines, and pain [...] that you work with a diet and data warehouse specialist (dietitian). ??? Vitamin K makes warfarin [...] Preventing bleeding and injury ??? Some common frfl-ghw-prbcqar medicines and supplements may increase the risk [...] diet. ??? You start or stop any nuuf-zmp-tgmmdsp medicine, prescription medicine, or dietary supplement. ??? [...] provider. Document Revised: 10/21/2018 Document Reviewed: 01/26/2018 THER[employer]YS Patient Education ? 2020 TH[employer]YS Inc. Infectious Disease Bacteremia, Adult Bacteremia is [...] these instructions at home: Medicines ??? Take cqwm-xwx-vabulqo and prescription medicines only as told by [...] and water are not available, use hand office services assistant. ??? You should wash your hands: ? [...] care provider. ??? Practice good oral hygiene. [place] your teeth two times a day, and [...] provider. Document Revised: 03/29/2020 Document Reviewed: 03/29/2020 THERAV[employer]YS Patient Education ? 2020 [employer]1Media. Nephrology Acute Kidney Injury, Adult Acute kidney [...] these instructions at home: Medicines ??? Take gjaj-evv-xlhrugy and prescription medicines only as told by [...] important. Where to find more information ??? [place] Association of Kidney Patients: www.aakp.org ??? National Kidney Foundation: www.kidney.org ??? [place] Kidney Fund: www.akfinc.org ??? Life Options Rehabilitation [...] provider. Document Revised: 09/17/2020 Document Reviewed: 09/17/2020 THERAVECTYS Patient Education ? 2020 [employer]Media. Chronic Kidney Disease, Adult Chronic kidney disease [...] these instructions at home: Medicines ??? Take nbzq-gho-zcwygtk and prescription medicines only as told by [...] provider. Document Revised: 10/21/2018 Document Reviewed: 12/13/2017 THERAVECTYS Patient Education ? 2020 [employer]1Media. Pharmacology Vitamin K Foods and Warfarin Warfarin [...] before making changes. ??? Work with a data warehouse specialist (dietitian) to develop a meal plan that works best for you. What foods are high in vitamin K? Foods that are high in vitamin K contain more than 100 mcg (micrograms) per serving. These include: ??? Broccoli (cooked from fresh) ? ? cup (78 g) has 110 mcg. ??? Delight sprouts (cooked from fresh) ? ? cup [...] cup (90 g) has 444 mcg. ??? [place] chard (cooked from fresh) ? ? cup [...] cup (54 g) has 8 mcg. ??? [place] with peel (raw) ? ? cup (52 g) has 9 mcg. ??? Grapes ? ? cup (76 g) has 12 mcg. ??? [place] ? 1 medium (207 g) has 9 [...] provider. Document Revised: 08/27/2020 Document Reviewed: 08/27/2020 THERAV[employer]YS Patient Education ? 2020 THER[employer]ECTYS Inc. Aspirin and Your Heart Aspirin is [...] The two forms of aspirin are: ? Zaj-ictxaeq-hwhefz.This type of aspirin does not have a coating and is absorbed quickly. This type of aspirin also comes in a chewable form. ? Enteric-coated. This type of aspirin has a coating that releases the medicine very slowly. Enteric-coated aspirin might cause less stomach upset than xof-mbtuwxh-tnaeoo aspirin. This type of aspirin should not [...] these instructions at home Medicines ??? Take qyap-gtx-kgkefas and prescription medicines only as told by [...] Where to find more information ??? The [place] Heart Association: www.heart.org Contact a health care [...] filedocumented in this encounter Care Teams Inventory Control Coordinator Relationship Specialty Start Date End Date Reji Castro MD [address] [place] [id number] PCP - General Adolescent Medicine 10/02/22 documented as of this encounter
--- OUTSIDE RECORDS SUMMARY | 2025-05-24 10:57 | XMS_ITS | Encounter Summary ---
Author Organization [employer] ([place], [place], [place], [place]) Address [address] [place] [address] Care Team Providers Care Buildings And Grounds Superintendent Name Role Phone Reji Castro MD Primary Care Provider + [phone] Encounter Details Date Type Department Care Team (Late st Contact Info) Description 08/27/2021 Transcribed Document [facility] [place] [address] ProviderDelvin MD [address] [place] [phone] Social History Tobacco Use Types Packs/Day Years Used Date Smoking Tobacco: Never Assessed Comments Unknown Sex and Gender Information Value Date Recorded Sex Assigned at Not on file Legal Sex Female 4:32 PM CDT Gender Identity Not on file Sexual Orientation Not on file documented as of this encounter Miscellaneous Notes * Cerner Conversion Note - Historical ProviderMD - 08/27/2021 2:00 AM CDT Cytopathology Technologist Details Entered On: 08/27/2021 3:29 EDT Performed [...] on filedocumented in this encounter Care Teams Buildings And Grounds Superintendent Relationship Specialty Start Date End Date Reji Castro MD [address] [place] [id number] PCP - General Adolescent Medicine 10/02/22 documented as of this encounter
--- OUTSIDE RECORDS SUMMARY | 2025-05-24 10:57 | XMS_ITS | Encounter Summary ---
Author Organization [employer] ([place], [place], [place], [place]) Address [address] [place] [address] Care Team Providers Care Senior Software Project Manager Name Role Phone Reji Castro MD Primary Care Provider + [phone] Encounter Details Date Type Department Care Team (Late st Contact Info) Description 08/27/2021 Transcribed Document [facility] [place] Family Medicine [address] [place] [address] ProviderDelvin MD [address] [place] [phone] Social History Tobacco Use Types Packs/Day Years [...] in this encounter Care Teams Senior Software Project Manager Relationship Specialty Start Date End Date Reji Castro MD [address] [place] [address] PCP - General Adolescent Medicine 10/02/22 documented as of this encounter
--- OUTSIDE RECORDS SUMMARY | 2025-05-24 10:57 | XMS_ITS | Encounter Summary ---
Author Organization [employer] ([place], [place], [place], [place]) Address [address] [place] [address] Care Team Providers Care Neuropathologist Name Role Phone Reji Castro MD Primary Care Provider + [phone] Encounter Details Date Type Department Care Team (Late st Contact Info) Description 08/27/2021 Transcribed Document [facility] [place] [facility] [place] [address] ProviderDelvin MD [address] [place] [id number] Social History Tobacco Use Types Packs/Day Years [...] cefTRIAXone: 2 Gram, 100 mL/Hr, IV Piggyback, I19FMeq diphenhydrAMINE: 25 mg, Oral, Q6H, PRN: Itching [...] 2 g injection: 2 Gram, IV Piggyback, V47IZuo, 0 Refill(s) cefdinir 300 mg oral capsule: [...] Oral, BID cefTRIAXone 2 Gram, IV Piggyback, [id number] citalopram 20 mg tab 40 mg 2 [...] Bioprosthetic mitral valve replacement / SNOMED CT 633536620 / Confirmed Chronic kidney disease / SNOMED CT 4972997709 / Confirmed COPD - Chronic obstructive pulmonary disease / SNOMED CT 583606312 / Confirmed History of obstructive sleep apnea / IMO [id number] / Confirmed HLD - Hyperlipidemia / SNOMED CT 605574721 / Confirmed HTN - Hypertension / SNOMED CT 0898167069 / Confirmed Canceled: Atrial fibrillation / SNOMED CT 47614742, Active Problems (25) AIHA (autoimmune hemolytic anemia) [...] on filedocumented in this encounter Care Teams Neuropathologist Relationship Specialty Start Date End Date Reji Castro MD [address] [place] [address] PCP - General Adolescent Medicine 10/02/22 documented as of this encounter
--- OUTSIDE RECORDS SUMMARY | 2025-05-24 10:57 | XMS_ITS | Encounter Summary ---
Author Organization [employer] ([place], [place], [place], [place]) Address [address] [place] [address] Care Team Providers Care Day Care Attendant Name Role Phone Reji Tovar MD Primary Care Provider + [phone] Encounter Details Date Type Department Care Team (Late st Contact Info) Description 08/27/2021 Transcribed Document [facility] [place] Family Medicine [address] [place] [address] ProviderDelvin MD [address] [place] [address] Social History Tobacco Use Types Packs/Day [...] Celestin MD - 08/27/2021 1:31 PM CDT [facility] [place] [address] IRINA TAMAYO :1965 Visit Time:08/11/2021 Your Visit Summary Your Care Team Admitting Physician - VINCE BELLO MD Attending Physician - FAIZA YOUSSEF DO-INT Primary Care Physician - DEREK ROBISON DR Referring Physician - VINCE BELLO MD Your Diagnosis Bacteremia Acute kidney injury superimposed on chronic kidney disease, Acute kidney injury CHF with unknown LVEF Atrial fibrillation Diabetes mellitus type II 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 Sawyer's office directly. Where: [address] [facility] [address] [place] [address]- Follow Up with LISA RICKETTS When 09/03/2021 10:45 AM EDT Comments Hospital follow up appointment has been made. Please arrive 15 minutes early to the appointment. If you need to reschedule, please contact [facility] directly. Where: [address] [facility] [address] [place] [address]- Business (1) Follow Up with NENA PEARSON MD-[facility] When Within 1 week Comments [facility] will contact you with appointment date and time. Where: [address] [facility] [address] [place] [address] Follow Up with REJI TOVAR ([facility]MD [facility] When Within 5 to 7 days Comments The [facility] will contact you with appointment date and time. Where: [address] [place] [address]- Follow Up with JERRELL GONZALEZ [...] Dose REDUCTION to 25mg daily Pickup at [facility] spironolactone (spironolactone 25 mg oral tablet) 1 Tablet(s) Oral Every Day Please note: Dose REDUCTION to 1 tablet daily warfarin (Coumadin 4 mg oral tablet) 2 Tablet(s) Oral Every Day Please note: Dose INCREASE Pickup at [facility] acetaminophen-oxyCODONE (Percocet 10/ 325 oral [...] Drop(s) Eyes Both Every Day Pharmacy Information [facility]: [address] [place] [address] [phone] Take your medications faithfully. Do NOT skip [...] these instructions at home: Medicines ??? Take qdpv-aja-togaewn and prescription medicines only as told by [...] and water are not available, use hand service observer chief. ??? You should wash your hands: ? [...] care provider. ??? Practice good oral hygiene. [place] your teeth two times a day, and [...] provider. Document Revised: 03/29/2020 Document Reviewed: 03/29/2020 [employer] Patient Education ?? 2020 [employer]. Warfarin Coagulopathy Warfarin coagulopathy refers to bleeding [...] stopping any new medicines. Many prescription and czrn-isy-lmehakx medicines can interfere with warfarin. This includes ismo-glw-bndwlve vitamins, dietary supplements, herbal medicines, and pain [...] that you work with a diet and learning solutions specialist (dietitian). ??? Vitamin K makes warfarin [...] Preventing bleeding and injury ??? Some common rtsl-drq-fkscgtx medicines and supplements may increase the risk [...] diet. ??? You start or stop any hzfa-fdo-fxbofzc medicine, prescription medicine, or dietary supplement. ??? [...] Reviewed: 01/26/2018 Elsevier Patient Education ?? 2020 [employer] Inc. Vitamin K Foods and Warfarin Warfarin [...] before making changes. ??? Work with a learning solutions specialist (dietitian) to develop a meal plan that works best for you. What foods are high in vitamin K? Foods that are high in vitamin K contain more than 100 mcg (micrograms) per serving. These include: ??? Broccoli (cooked from fresh) ? cup (78 g) has 110 mcg. ??? [place] sprouts (cooked from fresh) ? cup (78 [...] cup (90 g) has 444 mcg. ??? [place] chard (cooked from fresh) ? cup (88 [...] cup (54 g) has 8 mcg. ??? [place] with peel (raw) ? cup (52 g) [...] Reviewed: 08/27/2020 Elsevier Patient Education ?? 2020 [employer] Inc. Implanted Port Home Guide An implanted [...] implanted port has two main parts: ??? [place]. The reservoir is the part where a [...] water are not available, use alcohol-based hand service observer chief. ? Change your dressing as told by [...] provider. Document Revised: 03/01/2020 Document Reviewed: 12/11/2017 [employer] Patient Education ?? 2020 [employer]. Acute Kidney Injury, Adult Acute kidney injury [...] these instructions at home: Medicines ??? Take vxsf-wqv-vfnflkv and prescription medicines only as told by [...] important. Where to find more information ??? [place] Association of Kidney Patients: www.aakp.org ??? National Kidney Foundation: www.kidney.org ??? [place] Kidney Fund: www.akfinc.org ??? Life Options Rehabilitation [...] provider. Document Revised: 09/17/2020 Document Reviewed: 09/17/2020 [employer] Patient Education ?? 2020 [employer]. Chronic Kidney Disease, Adult Chronic kidney disease [...] these instructions at home: Medicines ??? Take godm-gtg-cbqrkcn and prescription medicines only as told by [...] provider. Document Revised: 10/21/2018 Document Reviewed: 12/13/2017 [employer] Patient Education ?? 2020 Elsevier Inc. Implanted [...] implanted port has two main parts: ??? [place]. The reservoir is the part where a [...] water are not available, use alcohol-based hand service observer chief. ? Change your dressing as told by [...] provider. Document Revised: 03/01/2020 Document Reviewed: 12/11/2017 [employer] Patient Education ?? 2020 [employer]. Atrial Fibrillation Atrial fibrillation is a type [...] signals of the heart. ??? An ambulatory radiographer cardiac catheterization to record your heart's activity for a [...] provider. Document Revised: 05/01/2020 Document Reviewed: 05/01/2020 [employer] Patient Education ?? 2020 V[employer] Inc. Aspirin and Your Heart Aspirin is [...] on filedocumented in this encounter Care Teams Day Care Attendant Relationship Specialty Start Date End Date Reji Tovar MD [address] [place] [id number] PCP - General Adolescent Medicine 10/02/22 documented as of this encounter
--- OUTSIDE RECORDS SUMMARY | 2025-05-24 10:58 | XMS_ITS | Encounter Summary ---
Author Organization [employer] ([place], [place], [place], [place]) Address [address] [place] [address] Care Team Providers Care Generator Operator Straight Bevel Gear Name Role Phone Reji Castro MD Primary Care Provider + [phone] Encounter Details Date Type Department Care Team (Late st Contact Info) Description 08/24/2021 Transcribed Document [facility] [place] [facility] [place] [address] ProviderDelvin MD [address] [place] [phone] Social History Tobacco Use Types Packs/Day Years Used Date Smoking Tobacco: Never Assessed Comments Unknown Sex and Gender Information Value Date Recorded Sex Assigned at Not on file Legal Sex Female 4:32 PM CDT Gender Identity Not on file Sexual Orientation Not on file documented as of this encounter Miscellaneous Notes * Cerner Conversion Note - Historical ProviderMD - 08/24/2021 2:00 AM CDT Inventory Representative Details Entered On: 08/24/2021 0:53 EDT Performed [...] Usha Adler, RN - 08/24/2021 0:53 EDT Electronically signed by Loki Ca Conversion Welding Machine Operator Electron Beam Cerner at 03/09/2023 8:50 PM CDT documented in this encounter Plan of Treatment Not on file documented as of this encounter Visit Diagnoses Not on filedocumented in this encounter Care Teams Generator Operator Straight Bevel Gear Relationship Specialty Start Date End Date Reji Castro MD [address] [place] [id number] PCP - General Adolescent Medicine 10/02/22 documented as of this encounter
--- OUTSIDE RECORDS SUMMARY | 2025-05-24 10:58 | XMS_ITS | Clinical Summary ---
Author Organization [facility] Address [address] [place] [address] Care Team Providers Care Dock Manager Name Role Phone Reji Castro MD [...] (one) time each day. Active Continuous Glucose Acquisition Cost Estimator (FreeStyle [place] 14 Day [place]) device use as directed 4 Active Continuous [...] Description 05/23/2025 Community Orders [facility] [address] [place] [address] Reji Castro MD Stage 3b chronic kidney disease (CMS/HCC) (Primary Dx) 05/18/2025 Telephone [facility] [place] [address] [facility] [address] [place] [address] Alysha Maloney 05/17/2025 Telephone [facility] [place] [address] [facility] [address] [place] [address] Alysha Maloney 05/07/2025 Orders Only External Location [address] [place] [address] Provider, External 05/07/2025 Orders Only External Location [address] [place] [address] Provider, External from Last 3 Months Immunizations [...] 2013 UKY-Zoster Vaccines (1 of 2) 2013 QNB-HQBRC-54 Vaccine (3 - Moderna risk series) 03/24/2021 [...] Reactive Non Reactive 12/15/2024 9:33 PM EST [facility] Comment:Screening for HIV 1 & 2 antibodies, and P24 antigen is NONREACTIVE. No confirmatory testing is required. Blood Venous blood specimen / Unknown Venipuncture / Unknown 12/15/2024 8:10 PM EST 12/15/2024 8:52 PM EST Elijah Negron MD LAB BLOOD ORDERABLES Final Result [facility] [address] [place] [address] * Hepatitis C Antibody - ED (12/15/2024 8:10 PM EST) Hepatitis C Antibody Negative Negative 12/15/2024 9:33 PM EST [facility] Blood Venous blood specimen / Unknown Venipuncture / Unknown 12/15/2024 8:10 PM EST 12/15/2024 8:52 PM EST us Elijah Negron MD LAB BLOOD ORDERABLES Final Result Performing Organization Address [facility] Co de Phone Number [facility] [address] [place] [address] * (ABNORMAL) Hemoglobin A1c (11/20/2023 2:15 AM EST) Hemoglobin A1c 7.1(H) <5.7 % 11/20/2023 4:00 AM EST [facility] Blood Venous blood specimen / Unknown Venipuncture / Unknown 11/20/2023 2:15 AM EST 11/20/2023 2:22 AM EST Narrative [facility] - 11/20/2023 4:00 AM EST HA1C Interpretive Data: Diagnosis of Diabetes: Diabetic > or = 6.5% Pre-diabetic 5.7 to 6.4% Non-diabetic < or = 5.6% Glycemic Targets for Type I and Type II Diabetics: Non- Adults <7.0% Adults <6.0% Children and Adolescents <7.5% Source: [place] Diabetes Association. Standards of medical care in diabetes,2017. Diabetes Care.2017:40 (suppl 1):S1-S135. HbA1c assay performed by an ion-exchange chromatography method that is certified traceable to the DCCT. us Alannah Conti APRN LAB BLOOD ORDERABLES Final Re sult Performing Organization Address City/[facility]/ZIP Co de Phone Number [facility] [address] [place] [address] from Last 3 Months or Most Recently Relevant to Health Maintenance Insurance [facility] MEDICARE Advance Directives * Full Code (Latest Code Status on File) Date Activated Date Inactivated Comments 11/18/2023 5:56 PM 11/24/2023 4:04 PM Question Answer Comments Patient has decision-making capacity? Yes Care Teams Dock Manager Relationship Specialty Start Date End Date Reji Castro MD [address] [place] [id number] PCP - General Internal Medicine 12/08/23
--- OUTSIDE RECORDS SUMMARY | 2025-05-24 10:58 | XMS_ITS | Encounter Summary ---
Author Organization [employer] ([place], [place], [place], [place]) Address [address] [place] [address] Care Team Providers Care Pen Tester Name Role Phone Reji Castro MD Primary Care Provider + [phone] Encounter Details Date Type Department Care Team (Late st Contact Info) Description 08/13/2021 Transcribed Document [facility] [place] [address] ProviderDelvin MD [address] [place], [place] [phone] Social History Tobacco Use Types Packs/Day Years [...] On: 08/13/2021 7:24 EDT by Marline Leija, Immigration Manager Primary Insurance Authorization Authorization and Policy Numbers : Insurance 1 Health Plan: [employer] PPO Policy Number: [id number] Authorization Number: Insurance 2 Health Plan: [place]ID [place] Policy Number: [id number] Authorization Number: Insurance Primary Name : [employer] PPO Policy Number: [id number] Authorization Status-Primary : Notification only Reference Number-Primary : [id number] Authorization Number-Primary : [id number] Authorized Service Begin Date-Primary : 08/11/2021 EDT Authorization Comments-Primary : Authorized per email from Khari Leroy, RN. Historical Authorization Comments-Primary : Comment 1: Pend ref no per Availity, reviewer has access to [employer] (JORGE VALLES RN 08/12/2021 14:07) Marline Leija, Immigration Manager - 08/13/2021 7:24 EDT Electronically signed by Lanny [facility] Conversion Log Hooker Cerner at 03/09/2023 8:49 PM CDT documented in this encounter Plan of Treatment Not on file documented as of this encounter Visit Diagnoses Not on filedocumented in this encounter Care Teams Pen Tester Relationship Specialty Start Date End Date Reji Castro MD [address] [place] [address] PCP - General Adolescent Medicine 10/02/22 documented as of this encounter
--- OUTSIDE RECORDS SUMMARY | 2025-05-24 10:58 | XMS_ITS | Encounter Summary ---
Author Organization [employer] ([place], [place], [place], [place]) Address [address] [place] [address] Care Team Providers Care Presiding Judge Name Role Phone Reji Castro MD Primary Care Provider + [phone] Encounter Details Date Type Department Care Team (Late st Contact Info) Description 08/13/2021 Transcribed Document [facility] [place] [facility] [place] [address] ProviderDelvin MD [address] [place] [address] [id number] Social History Tobacco Use Types Packs/Day Years [...] Author: CHELI BEASLEY MD-CAR Basic Information Primary Machine Shop Instructor: Dr. Delmar Geronimo Director Internal Control: MD Nestor Subjective NAD Health Status Current [...] mL 700 mg 14 mL, IV Piggyback, [id number] DAPTOmycin + NaCl 0.9% 50 mL 700 mg 14 mL, IV Piggyback, [id number] famotidine 20 mg tab 20 mg 1 [...] of motion, Normal strength. Integumentary: Warm, Dry, [place]. Neurologic: Alert, Oriented. Psychiatric: Cooperative, Appropriate mood & affect. Results Review AUG 13 05:19 136 103 H 50 / 102 4.5 30 H 1.60 \ AUG 13 05:19 \ L 8.5 / 5.5 197 / L 28.7 \ Cardiac Markers (Current Encounter/Past 24 Hours) CK 87 Units/Liter 08/13/2021 05:53 ProBNP 587 pg/mL HI 08/13/2021 05:58 Radiology Results (Last 48 hours) [id number] -- 08/11/2021 21:21 CR Chest 1 Vw [...] mechan MV, 4+ TR, no vegetation. Admitted [facility] 07/12, Negative CHUCHO, TTE for [...] mechanical causes of hemolysis. Obtain records from [facility]. Check haptoglobin, LDH, reticulocyte count. Continue other current CV meds. documented in this encounter Plan of Treatment Not on file documented as of this encounter Visit Diagnoses Not on filedocumented in this encounter Care Teams Presiding Judge Relationship Specialty Start Date End Date Reji Castro MD [address] [place] [address] PCP - General Adolescent Medicine 10/02/22 documented as of this encounter
--- OUTSIDE RECORDS SUMMARY | 2025-05-24 10:58 | XMS_ITS | Encounter Summary ---
Author Organization [employer] ([place], [place], [place], [place]) Address [address] [place] [address] Care Team Providers Care Care Nurse Rn Name Role Phone Reji Castro MD Primary Care Provider [phone] Encounter Details Date Type Department Care Team (Late st Contact Info) Description 08/24/2021 Transcribed Document [facility] Radiology [address] [place] [address] Loren Solorzano MD [address] [place] [address] [place] [address] Social History Tobacco Use Types Packs/Day Years [...] cefTRIAXone: 2 Gram, 100 mL/Hr, IV Piggyback, [id number] diphenhydrAMINE: 25 mg, Oral, Q6H, PRN: Itching [...] Oral, BID cefTRIAXone 2 Gram, IV Piggyback, [id number] citalopram 20 mg tab 40 mg 2 [...] Bioprosthetic mitral valve replacement / SNOMED CT 562956295 / Confirmed Chronic kidney disease / SNOMED CT 7803662370 / Confirmed COPD - Chronic obstructive pulmonary disease / SNOMED CT 088614253 / Confirmed History of obstructive sleep apnea / IMO 99008801 / Confirmed HLD - Hyperlipidemia / SNOMED CT 197878805 / Confirmed HTN - Hypertension / SNOMED CT 6956551683 / Confirmed Canceled: Atrial fibrillation / SNOMED CT 59870959, Active Problems (25) AIHA (autoimmune hemolytic anemia) [...] 26.6 \ Radiology Results (Last 48 hours) [id number] -- 08/11/2021 21:21 CR Chest 1 Vw [...] Hold home meds SSI #Depression Celexa #Pain Eloy 10 mg every 6 hours as needed [...] on filedocumented in this encounter Care Teams Care Nurse Rn Relationship Specialty Start Date End Date Reji Castro MD [address] [place] [address] PCP - General Adolescent Medicine 10/02/22 documented as of this encounter
--- OUTSIDE RECORDS SUMMARY | 2025-05-24 10:58 | XMS_ITS | Encounter Summary ---
Author Organization [employer] ([place], [place], [place], [place]) Address [address] [place] [address] Care Team Providers Care Market Editor Name Role Phone Reji Castro MD Primary Care Provider + [phone] Encounter Details Date Type Department Care Team (Late st Contact Info) Description 08/13/2021 Transcribed Document [facility] [place] [address] [place] [address] ProviderDelvin MD [address] [place] [address] 940521 Social History Tobacco Use Types Packs/Day Years [...] filedocumented in this encounter Care Teams Market Editor Relationship Specialty Start Date End Date Reji Castro MD [address] [place] [address] PCP - General Adolescent Medicine 10/02/22 documented as of this encounter
--- OUTSIDE RECORDS SUMMARY | 2025-05-24 10:58 | XMS_ITS | Encounter Summary ---
Author Organization [employer] ([place], [place], [place], [place]) Address [address] [place] [address] Care Team Providers Care Crisis Nurse Name Role Phone Reji Castro MD Primary Care Provider + [phone] Encounter Details Date Type Department Care Team (Late st Contact Info) Description 08/13/2021 Transcribed Document [facility] [place] [address] [place] [address] ProviderDelvin MD [address] [place] [address] 518091 Social History Tobacco Use Types Packs/Day Years [...] On: 08/13/2021 9:56 EDT by Reina Tian, BASS VIOL REPAIRER Phone Call for Consults Consult Phone Call/Page Attempt : First call Consult Reason : paula cath infection, needing removal Physician Requested for Consult : Elieser VERNON MD-TATYANA Date and Time Call Returned : 08/14/2021 10:08 EDT Reina Tian, BASS VIOL REPAIRER - 08/13/2021 10:09 EDT documented in this encounter Plan of Treatment Not on file documented as of this encounter Visit Diagnoses Not on filedocumented in this encounter Care Teams Crisis Nurse Relationship Specialty Start Date End Date Reji Csatro MD [address] [place] [address] PCP - General Adolescent Medicine 10/02/22 documented as of this encounter
--- OUTSIDE RECORDS SUMMARY | 2025-05-24 10:58 | XMS_ITS | Encounter Summary ---
Author Organization [employer] ([place], [place], [place], [place]) Address [address] [place] [address] Care Team Providers Care Floral Designer Name Role Phone Reji Castro MD Primary Care Provider + [phone] Encounter Details Date Type Department Care Team (Late st Contact Info) Description 08/24/2021 Transcribed Document [facility] [place] [address] ProviderDelvin MD [address] [place] [address]11781 Social History Tobacco Use Types Packs/Day Years [...] cefTRIAXone: 2 Gram, 100 mL/Hr, IV Piggyback, [id number] diphenhydrAMINE: 25 mg, Oral, Q6H, PRN: Itching [...] Oral, BID cefTRIAXone 2 Gram, IV Piggyback, [id number] citalopram 20 mg tab 40 mg 2 [...] Bioprosthetic mitral valve replacement / SNOMED CT 148897497 / Confirmed Chronic kidney disease / SNOMED CT 6950136634 / Confirmed COPD - Chronic obstructive pulmonary disease / SNOMED CT 339699350 / Confirmed History of obstructive sleep apnea / IMO 31462483 / Confirmed HLD - Hyperlipidemia / SNOMED CT 763749291 / Confirmed HTN - Hypertension / SNOMED CT 2151852720 / Confirmed Canceled: Atrial fibrillation / SNOMED CT 44162112, Active Problems (25) AIHA (autoimmune hemolytic anemia) [...] Monitor GFR adjust medications. Electronically signed by [facility], [facility] Conversion Food And Beverage Outlets Manager Cerner at 03/09/2023 8:38 PM CDT documented in this encounter Plan of Treatment Not on file documented as of this encounter Visit Diagnoses Not on filedocumented in this encounter Care Teams Floral Designer Relationship Specialty Start Date End Date Reji Castro MD [address] [place] [address] PCP - General Adolescent Medicine 10/02/22 documented as of this encounter
--- OUTSIDE RECORDS SUMMARY | 2025-05-24 10:58 | XMS_ITS | Referral Summary ---
Author Organization [employer] ([place], [place], [place], [place]) Address [address] [place] [address] Care Team Providers Care Account Manager Forest Service Name Role Phone Reji Castro MD Primary Care Provider [phone] Allergies Active Allergy Reactions Criticality Noted Date [...] Date Yash rded Speak language other than South Korean at home Not on file 12/10/2023 Want [...] Advance Directives For more information, please contact: [phone] Documents on File Type Date Recorded Patient Aging Department Supervisor Expl anation Advance Directives and Livin g Will 10/05/2022 8:36 AM Care Teams Account Manager Forest Service Relationship Specialty Start Date End Date Reji Castro MD [address] [place] [address] PCP - General Adolescent Medicine 10/02/22
--- OUTSIDE RECORDS SUMMARY | 2025-05-24 10:58 | XMS_ITS | Encounter Summary ---
Author Organization [employer] ([place], [place], [place], [place]) Address [address] [place] [address] Care Team Providers Care Hospice Registered Nurse Name Role Phone Reji Castro MD Primary Care Provider + [phone] Encounter Details Date Type Department Care Team (Late st Contact Info) Description 08/13/2021 Transcribed Document [facility] [place] [address] [place] [address] ProviderDelvin MD [address] [place] [address] Social History Tobacco Use Types Packs/Day Years [...] on filedocumented in this encounter Care Teams Hospice Registered Nurse Relationship Specialty Start Date End Date Reji Castro MD [address] [place] [address] PCP - General Adolescent Medicine 10/02/22 documented as of this encounter
--- OUTSIDE RECORDS SUMMARY | 2025-05-24 10:58 | XMS_ITS | Encounter Summary ---
Author Organization [employer] ([place], [place], [place], [place]) Address [address] [place] [address] Care Team Providers Care Metal Organ Pipe Maker Name Role Phone Reji Castro MD Primary Care Provider + [phone] Encounter Details Date Type Department Care Team (Late st Contact Info) Description 08/13/2021 Transcribed Document [facility] [place] [facility] [address] ProviderDelvin MD [address] [place] [phone] Social History Tobacco Use Types Packs/Day Years [...] 180 units of blood due to anemia, [facility]. Reason [...] these transfusions about 3 years ago at [facility]. Last month she developed fever, headache, nausea, and was admitted to [facility]. CHUCHO/TTE at that time showed possible bacteria on the tip of her port. She was treated with PO antibiotics with resolution of symptoms and was discharged home with no plans for port removal. She reports a few days ago she again had headache and nausea, this time without fever. She presented to the emergency department at [facility] with blood cultures drawn which were supposedly positive for staph epi. She was subsequently told to come to [facility] ED for ID consultation. Review of [...] fibrillation 5. Diabetes mellitus type II 6. penitentiary current use of anticoagulant At risk for [...] Diagnostic Results Radiology Results (Last 48 hours) [id number] -- 08/11/2021 21:21 CR Chest 1 Vw [...] 08/13/2021 06:13 Blood Urea Nitrogen 50 mg/dL CT 08/13/2021 06:13 Glucose Level 102 mg/dL 08/13/2021 06:13 Albumin Level 3.9 Gram/dL 08/13/2021 06:13 Bilirubin Total 0.5 mg/dL 08/13/2021 06:13 Calcium Level 9.1 mg/dL 08/13/2021 06:13 Electronically signed by [facility], [facility] Conversion Human Resources Recruiter Cerner at 03/09/2023 8:43 PM CDT documented in this encounter Plan of Treatment Not on file documented as of this encounter Visit Diagnoses Not on filedocumented in this encounter Care Teams Metal Organ Pipe Maker Relationship Specialty Start Date End Date Reji Castro MD [address] [place] [address] PCP - General Adolescent Medicine 10/02/22 documented as of this encounter
--- OUTSIDE RECORDS SUMMARY | 2025-05-24 10:58 | XMS_ITS | Encounter Summary ---
Author Organization [employer] ([place], [place], [place], [place]) Address [address] [place] [address] Care Team Providers Care Debrander Name Role Phone Reji Castro MD Primary Care Provider + [phone] Encounter Details Date Type Department Care Team (Late st Contact Info) Description 08/18/2021 Transcribed Document [facility] [place] [facility] [place] [address] ProviderDelvin MD [address] [place] [address] [phone] Social History Tobacco Use Types Packs/Day Years [...] # 0.52 x10(3)/uL (Low) 08/18/2021 06:56 EDT Dukes % 8.7 % 08/18/2021 06:56 EDT Dukes # 0.61 K/uL 08/18/2021 06:56 EDT Eos [...] (High) 08/18/2021 06:56 EDT Electronically signed by [facility], [facility] Conversion Welt Trimming Machine Operator Cerner at 03/09/2023 9:00 PM CDT documented in this encounter Plan of Treatment Not on file documented as of this encounter Visit Diagnoses Not on filedocumented in this encounter Care Teams Debrander Relationship Specialty Start Date End Date Reji Castro MD [address] [place] [address] PCP - General Adolescent Medicine 10/02/22 documented as of this encounter
--- OUTSIDE RECORDS SUMMARY | 2025-05-24 10:58 | XMS_ITS | Encounter Summary ---
Author Organization [employer] ([place], [place], [place], [place]) Address [address] [place] [address] Care Team Providers Care Telephone Ad Taker Name Role Phone Reji Castro MD Primary Care Provider + [phone] Encounter Details Date Type Department Care Team (Late st Contact Info) Description 08/13/[address] [facility] [place] [facility] [place] [address] ProviderDelvin MD [address] [place] [address] [phone] Social History Tobacco Use Types Packs/Day Years [...] III. Patient follows with Dr gonzáles in [place]. She has hx of obstructive uropathy with [...] # 0.62 x10(3)/uL (Low) 08/13/2021 05:19 EDT Toole % 9.5 % (High) 08/13/2021 05:19 EDT Toole # 0.52 K/uL 08/13/2021 05:19 EDT Eos [...] mcg/mL 08/13/2021 05:19 EDT Electronically signed by [facility] Conversion Gifted Teacher Cerner at 03/09/2023 9:02 PM CDT documented in this encounter Plan of Treatment Not on file documented as of this encounter Visit Diagnoses Not on filedocumented in this encounter Care Teams Telephone Ad Taker Relationship Specialty Start Date End Date Reji Castro MD [address] [place] [address] PCP - General Adolescent Medicine 10/02/22 documented as of this encounter
--- OUTSIDE RECORDS SUMMARY | 2025-05-24 10:58 | XMS_ITS | Encounter Summary ---
Author Organization [employer] ([place], [place], [place], [place]) Address [address] [place] [address] Care Team Providers Care Filament Shaper Name Role Phone Reji Castro MD Primary Care Provider + [phone] Encounter Details Date Type Department Care Team (Late st Contact Info) Description 08/24/2021 Transcribed Document [facility] [place] [facility] [place] [address] ProviderDelvin MD [address] [place] [phone] Social History Tobacco Use Types Packs/Day Years [...] cefTRIAXone: 2 Gram, 100 mL/Hr, IV Piggyback, [id number]. citalopram: 40 mg, Oral, Daily. diphenhydrAMINE: 25 [...] you, Noy Garrett, PharmD PGY-1 Resident Pager #[phone] Electronically signed by Lanny [facility] Conversion Spiral Winder Cerner at 03/09/2023 8:39 PM CDT documented in this encounter Plan of Treatment Not on file documented as of this encounter Visit Diagnoses Not on filedocumented in this encounter Care Teams Filament Shaper Relationship Specialty Start Date End Date Reji Castro MD [address] [place] [address] PCP - General Adolescent Medicine 10/02/22 documented as of this encounter
--- OUTSIDE RECORDS SUMMARY | 2025-05-24 10:58 | XMS_ITS | Encounter Summary ---
Author Organization [employer] ([place], [place], [place], [place]) Address [address] [place] [address] Care Team Providers Care Teradata Architect Name Role Phone Reji Castro MD Primary Care Provider [phone] Encounter Details Date Type Department Care Team (Late st Contact Info) Description 08/18/2021 Transcribed Document [facility] Radiology 1 [place] [address] Loren Solorzano MD [address] [place] [address] [place] [address] Social History Tobacco Use Types Packs/Day Years [...] Bioprosthetic mitral valve replacement / SNOMED CT 959337621 / Confirmed Chronic kidney disease / SNOMED CT 8567175174 / Confirmed COPD - Chronic obstructive pulmonary disease / SNOMED CT 550951295 / Confirmed History of obstructive sleep apnea / IMO 77778733 / Confirmed HLD - Hyperlipidemia / SNOMED CT 472889759 / Confirmed HTN - Hypertension / SNOMED CT 6454224026 / Confirmed Canceled: Atrial fibrillation / SNOMED CT 90459834, Active Problems (25) AIHA (autoimmune hemolytic anemia) [...] 18:12) 98.2 (AUG 17:) Apical HR 75 ([facility] 20:10) 75 ([facility] [place] 20:10) 75 ([facility] [place] 20:10) Mon HR 63 (AUG 18 06:) 63 (AUG 18 06:29) 84 ([facility] [place] 18:12) Resp Rate 18 (AUG 18 06:) 16 (AUG 17 22:27) 18 (AUG 18 06:29) SBP 105 (AUG 18 06:29) 101 (AUG 17 22:27) 107 ([facility] [place] 02:02) DBP L 53 (AUG 18 06:29) L 45 (AUG 17 18:12) 61 (AUG 17 22:27) MAP 77 (AUG 18 06:29) 70 ([facility] 18:12) 78 ([facility] 22:27) SpO2 95 (AUG 18 [...] 50 mL 700 mg, IV Piggyback, Inj, M20DWpd, infuse over 30 Minute(s), Routine, Start 08/14/21 [...] Hold home meds SSI #Depression Celexa #Pain [place] 10 mg every 6 hours as needed [...] on filedocumented in this encounter Care Teams Teradata Architect Relationship Specialty Start Date End Date Reji Castro MD [address] [place] [address] PCP - General Adolescent Medicine 10/02/22 documented as of this encounter
--- OUTSIDE RECORDS SUMMARY | 2025-05-24 10:58 | XMS_ITS | Encounter Summary ---
Author Organization [employer] ([place], [place], [place], [place]) Address [address] [place] [address] Care Team Providers Care Consumer Insights Intern Name Role Phone Reji Casrto MD Primary Care Provider + [phone] Encounter Details Date Type Department Care Team (Late st Contact Info) Description 08/18/2021 Transcribed Document [facility] [place] [facility] [place] [address] ProviderDelvin MD [address] [place] [address] [phone] Social History Tobacco Use Types Packs/Day Years [...] questions. Thank you, Andrea Moraes, PharmD PGY1 Anesthesia Associate Pager: [phone] documented in this encounter Plan of Treatment Not on file documented as of this encounter Visit Diagnoses Not on filedocumented in this encounter Care Teams Consumer Insights Intern Relationship Specialty Start Date End Date Reji Castro MD [address] [place] [address] PCP - General Adolescent Medicine 10/02/22 documented as of this encounter
--- OUTSIDE RECORDS SUMMARY | 2025-05-24 10:58 | XMS_ITS | Encounter Summary ---
Author Organization [employer] ([place], [place], [place], [place]) Address [address] [place] [address] Care Team Providers Care Log Grader Name Role Phone Reji Castro MD Primary Care Provider + [phone] Encounter Details Date Type Department Care Team (Late st Contact Info) Description 08/18/2021 Transcribed Document [facility] [place] [address] [place] [address] ProviderDelvin MD [address] [place] [address] 304061 Social History Tobacco Use Types Packs/Day Years [...] Spiritual Care Intervention/Comment/Summary Points : PreSurgery visit Baptism Preference : Religion FAIZA ARIZA - 09/02/2021 12:43 EDT Electronically signed by [employer] Conversion [employer] Redevelopment Site Manager Farazner at 03/09/2023 8:58 PM CDT documented in this encounter Plan of Treatment Not on file documented as of this encounter Visit Diagnoses Not on filedocumented in this encounter Care Teams Log Grader Relationship Specialty Start Date End Date Reji Castro MD [address] [place] [address] PCP - General Adolescent Medicine 10/02/22 documented as of this encounter
--- OUTSIDE RECORDS SUMMARY | 2025-05-24 10:58 | XMS_ITS | Encounter Summary ---
Author Organization [employer] ([place], [place], [place], [place]) Address [address] [place] [address] Care Team Providers Care Aerial Sprayer Name Role Phone Reji Castro MD Primary Care Provider + [phone] Encounter Details Date Type Department Care Team (Late st Contact Info) Description 08/13/2021 Transcribed Document [facility] [place] [address] ProviderDelvin MD [address] [place] [phone] Social History Tobacco Use Types Packs/Day Years Used Date Smoking Tobacco: Never Assessed Comments Unknown Sex and Gender Information Value Date Recorded Sex Assigned at Not on file Legal Sex Female 4:32 PM CDT Gender Identity Not on file Sexual Orientation Not on file documented as of this encounter Miscellaneous Notes * [employer]ner Conversion Note - Historical ProviderMD - 08/13/2021 2:00 AM CDT Electrical Tech/Project Manager Details Entered On: 08/13/2021 6:35 EDT Performed [...] on filedocumented in this encounter Care Teams Aerial Sprayer Relationship Specialty Start Date End Date Reji Castro MD [address] [place] [address] PCP - General Adolescent Medicine 10/02/22 documented as of this encounter
--- OUTSIDE RECORDS SUMMARY | 2025-05-24 10:58 | XMS_ITS | Encounter Summary ---
Author Organization [employer] ([place], [place], [place], [place]) Address [address] [place] [address] Care Team Providers Care Drywall Hanger Framer Name Role Phone Reji Castro MD Primary Care Provider + [phone] Encounter Details Date Type Department Care Team (Late st Contact Info) Description 08/27/2021 Transcribed Document [facility] [place] [address] [place] [address] ProviderDelvin MD [address] [place], [place] [phone] Social History Tobacco Use Types Packs/Day Years [...] 10:18 AM CDT Reji Castro MD [address] [facility] [address] [place] [address] Re: IRINA TAMAYO Date of Visit: 08/11/2021 [...] contents is strictly prohibited. Sincerely, FAIZA YOUSSEF [address] [facility] [address] [place] [address] The following document(s) were included in the letter: August 27, 2021 10:05:19 EDT - (08/27/2021) Discharge Note documented in this encounter Plan of Treatment Not on file documented as of this encounter Visit Diagnoses Not on filedocumented in this encounter Care Teams Drywall Hanger Framer Relationship Specialty Start Date End Date Reji Castro MD [address] [place] [address] PCP - General Adolescent Medicine 10/02/22 documented as of this encounter
--- OUTSIDE RECORDS SUMMARY | 2025-05-24 10:58 | XMS_ITS | Encounter Summary ---
Author Organization [employer] ([place], [place], [place], [place]) Address [address] [place] [address] Care Team Providers Care Exhibit Preparator Name Role Phone Reji Castro MD Primary Care Provider + [phone] Encounter Details Date Type Department Care Team (Late st Contact Info) Description 08/27/2021 Transcribed Document [facility] [place] Family Medicine [address] [place] [address] ProviderDelvin MD [address] [place] [address] [phone] Social History Tobacco Use Types Packs/Day Years [...] 08/27/2021 3:29 EDT Electronically signed by Lanny [facility] Conversion Branding Machine Tender Cerner at 03/09/2023 8:34 PM CDT documented in this encounter Plan of Treatment Not on file documented as of this encounter Visit Diagnoses Not on filedocumented in this encounter Care Teams Exhibit Preparator Relationship Specialty Start Date End Date Reji Castro MD [address] [place] [address] PCP - General Adolescent Medicine 10/02/22 documented as of this encounter
--- OUTSIDE RECORDS SUMMARY | 2025-05-24 10:58 | XMS_ITS | Encounter Summary ---
Author Organization [employer] ([place], [place], [place], [place]) Address [address] [place] [address] Care Team Providers Care Medieval English Literature Professor Name Role Phone Reji Castro MD Primary Care Provider + [phone] Encounter Details Date Type Department Care Team (Late st Contact Info) Description 08/18/2021 Transcribed Document [facility] [place] Medicine [place] [address] ProviderDelvin MD [address] [place] [phone] Social History Tobacco Use Types Packs/Day Years [...] her port could not be accessed. Her special distribution clerk aspirated fluid from the port that was evidently purulent. I have not yet been able to track down that culture. After the aspiration she developed fever to 103, severe CHEUNG, myalgias and arthralgias. She was admitted to [facility]. 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 Integumentary: Warm, [place]. Neurologic: Alert, Oriented, No focal deficits. Psychiatric: [...] on filedocumented in this encounter Care Teams Medieval English Literature Professor Relationship Specialty Start Date End Date Reji Castro MD [address] [place] [address] PCP - General Adolescent Medicine 10/02/22 documented as of this encounter
--- OUTSIDE RECORDS SUMMARY | 2025-05-24 10:58 | XMS_ITS | Encounter Summary ---
Author Organization [employer] ([place], [place], [place], [place]) Address [address] [place] [address] Care Team Providers Care Pretzel Twister Name Role Phone Reji Castro MD Primary Care Provider + [phone] Encounter Details Date Type Department Care Team (Late st Contact Info) Description 08/27/2021 Transcribed Document [facility] [place] [facility] [place] [address] ProviderDelvin MD [address] [place] [address] [phone] Social History Tobacco Use Types Packs/Day Years [...] Warfarin HPI: 56 y/o F presenting to [facility] with history of COPD, atrial fibrillation, [...] Acosta 3). Daily INR Will followZeyad PharmD, [facility] [phone] Electronically signed by Lanny [facility] Conversion Senior Training Specialist Cerner at 03/09/2023 8:32 PM CDT documented in this encounter Plan of Treatment Not on file documented as of this encounter Visit Diagnoses Not on filedocumented in this encounter Care Teams Pretzel Twister Relationship Specialty Start Date End Date Reji Castro MD [address] [place] [address] PCP - General Adolescent Medicine 10/02/22 documented as of this encounter
--- OUTSIDE RECORDS SUMMARY | 2025-05-24 10:58 | XMS_ITS | Encounter Summary ---
Author Organization [facility] Address [address] [place] [address] Care Team Providers Care Yard Coordinator Name Role Phone Anna Marie Savage MD Primary Care Provider [phone] Reji Castro MD Primary Care Provider [phone] Encounter Details Date Type Department Care Team (Late st Contact Info) Description 10/05/2022 Orders Only External Location [address] [place] [address] Provider, External Social History Tobacco Use Types [...] on filedocumented in this encounter Care Teams Yard Coordinator Relationship Specialty Start Date End Date Anna Marie Savage MD [address] [place] [address] [phone] PCP - General 04/04/21 12/07/23 Reji Castro MD [facility] [facility] [address] [place] [address] PCP - General Internal Medicine 12/08/23 documented as of this encounter
--- OUTSIDE RECORDS SUMMARY | 2025-05-24 10:58 | XMS_ITS | Encounter Summary ---
Author Organization [employer] ([place], [place], [place], [place]) Address [address] [place] [address] Care Team Providers Care Physical Trainer Name Role Phone Reji Castro MD Primary Care Provider + [phone] Encounter Details Date Type Department Care Team (Late st Contact Info) Description 08/18/2021 Transcribed Document [facility] [place] [address] [place] [address] ProviderDelvin MD [address] [place] [address] [phone] Social History Tobacco Use Types Packs/Day Years [...] 15:44 EDT by MADINA LOVETT RN - Cost Recovery TechnicianSales Operations Assistant Progress Note Discharge Arrangements : Patient Post-Acute [...] Rounds? : Yes MADINA LOVETT, RN - Cost Recovery Technician - 08/18/2021 15:44 EDT Narrative Progress [...] will need home health and lives in [place]. [facility] home health is a possibility. CM will [...] and send referrals as appropriate. JULIO STEWART, RN-Cost Recovery Technician ED - 08/18/21 10:38:39 MADINA LOVETT, JEREMIAH - Cost Recovery Technician - 08/18/2021 15:44 EDT documented in this encounter Plan of Treatment Not on file documented as of this encounter Visit Diagnoses Not on filedocumented in this encounter Care Teams Physical Trainer Relationship Specialty Start Date End Date Reji Castro MD [address] [place] [id number] PCP - General Adolescent Medicine 10/02/22 documented as of this encounter
--- OUTSIDE RECORDS SUMMARY | 2025-05-24 10:58 | XMS_ITS | Encounter Summary ---
Author Organization [employer] ([place], [place], [place], [place]) Address [address] [place] [address] Care Team Providers Care Machinist Helper Name Role Phone Reji Castro MD Primary Care Provider + [phone] Encounter Details Date Type Department Care Team (Late st Contact Info) Description 08/18/2021 Transcribed Document [facility] [place] [address] [place] [address] ProviderDelvin MD [address] [place] [address]101 Social History Tobacco Use Types Packs/Day Years [...] on filedocumented in this encounter Care Teams Machinist Helper Relationship Specialty Start Date End Date Reji Castro MD [address] [place] [address] PCP - General Adolescent Medicine 10/02/22 documented as of this encounter
--- OUTSIDE RECORDS SUMMARY | 2025-05-24 10:58 | XMS_ITS | Encounter Summary ---
Author Organization [employer] ([place], [place], [place], [place]) Address [address] [place] [address] Care Team Providers Care Disability Specialist Name Role Phone Reji Castro MD Primary Care Provider + [phone] Encounter Details Date Type Department Care Team (Late st Contact Info) Description 08/13/2021 Transcribed Document [facility] [place] [facility] [place] [facility] [place] [address] ProviderDelvin MD [address] [place] [address] [phone] Social History Tobacco Use Types Packs/Day Years [...] mg, 14 mL, 128 mL/Hr, IV Piggyback, [id number] Dextrose 50% injection: 12.5 Gram, IV Push, [...] improvement time 35mins Electronically signed by Lanny, [facility] Conversion Parts Salesperson Cerner at 03/09/2023 9:02 PM CDT documented in this encounter Plan of Treatment Not on file documented as of this encounter Visit Diagnoses Not on filedocumented in this encounter Care Teams Disability Specialist Relationship Specialty Start Date End Date Reji Castro MD [address] [place] [address] PCP - General Adolescent Medicine 10/02/22 documented as of this encounter
--- OUTSIDE RECORDS SUMMARY | 2025-05-24 10:58 | XMS_ITS | Encounter Summary ---
Author Organization [employer] ([place], [place], [place], [place]) Address [address] [place] [address] Care Team Providers Care Mapper Name Role Phone Reji Castro MD Primary Care Provider + [phone] Encounter Details Date Type Department Care Team (Late st Contact Info) Description 08/13/2021 Transcribed Document [facility] [place] [facility] [place] [address] ProviderDelvin MD [address] [place] [address] 458471 Social History Tobacco Use Types Packs/Day Years [...] her port could not be accessed. Her local intermodal truck driver aspirated fluid from the port that was evidently purulent. I have not yet been able to track down that culture. After the aspiration she developed fever to 103, severe CHEUNG, myalgias and arthralgias. She was admitted to [facility]. She was in the hospital for [...] antibiotics. On 08/08 she presented to a [facility] after she developed severe CHEUNG and myalgias w/o prominent fever. She was subsequently contacted and told to report to [facility] because she had + blood cutures concerning for an infected portacath +/- PVE. 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 Integumentary: Warm, [place]. Neurologic: Alert, Oriented, No focal deficits. Psychiatric: [...] recommend therapy to 09/22 Electronically signed by [facility] Conversion Planning Division Superintendent Cerner at 03/09/2023 8:46 PM CDT documented in this encounter Plan of Treatment Not on file documented as of this encounter Visit Diagnoses Not on filedocumented in this encounter Care Teams Mapper Relationship Specialty Start Date End Date Reji Castro MD [address] [place] [address] PCP - General Adolescent Medicine 10/02/22 documented as of this encounter
--- OUTSIDE RECORDS SUMMARY | 2025-05-24 10:58 | XMS_ITS | Encounter Summary ---
Author Organization [employer] ([place], [place], [place], [place]) Address [address] [place] [address] Care Team Providers Care Body Sander Name Role Phone Reji Castro MD Primary Care Provider + [phone] Encounter Details Date Type Department Care Team (Late st Contact Info) Description 08/24/2021 Transcribed Document [facility] [place] [address] [place] [address] ProviderDelvin MD [address] [place] [address] [phone] Social History Tobacco Use Types Packs/Day Years [...] on filedocumented in this encounter Care Teams Body Sander Relationship Specialty Start Date End Date Reji Castro MD [address] [place] [address] PCP - General Adolescent Medicine 10/02/22 documented as of this encounter
--- OUTSIDE RECORDS SUMMARY | 2025-05-24 10:59 | XMS_ITS | Encounter Summary ---
Author Organization [facility] Address [address] [place] [address] Care Team Providers Care Station Mechanic Apprentice Name Role Phone Reji Castro MD Primary Care Provider [phone] Reason for Referral * Transplant (Routine) - Denied Specialty Diagnoses / Procedures Referred By Contac t Referred To Contact Transplant Diagnoses Cardiomyopathy, unspecified type (CMS/HCC) Neil Caldwell MD [facility] [place] [address] Phone: tel: fax: [facility] [address] [facility] 1st Floor [address] [place] [address] Phone: tel: fax: Referral ID Status Reason Start Date Expiration Date V isits Requested Visits Authorized [id number] Denied Specialty Services Required 05/17/2025 11/16/2026 999 0 Encounter Details Date Type Department Care Team (Late st Contact Info) Description 05/17/2025 Telephone [facility] [address] [place] [address] Alysha Maloney [place] [phone] Social History Tobacco Use Types Packs/Day Years [...] place to sleep or slept in a correction (including now)? No 11/19/2023 Utilities Answer Date [...] 05/17/2025 2:55 PM EDT Referral came from [facility], Dr. Regis Caldwell to the [facility]. Requested [facility] cancel the Cardiology referral since I will add TXP referral. Records saved in Media by [facility]. I will request images from [facility] Notified [facility] of new referral and TXP [place]:CH [...] documented as of this encounter Care Teams Station Mechanic Apprentice Relationship Specialty Start Date End Date Reji Castro MD [address] [place] [address] PCP - General Internal Medicine 12/08/23 documented as of this encounter
--- OUTSIDE RECORDS SUMMARY | 2025-05-24 10:59 | XMS_ITS | Encounter Summary ---
Author Organization [employer] ([place], [place], [place], [place]) Address [address] [place] [address] Care Team Providers Care Insurance Salesperson Name Role Phone Reji Castro MD Primary Care Provider + [phone] Encounter Details Date Type Department Care Team (Late st Contact Info) Description 08/13/2021 Transcribed Document [facility] [place] Family Medicine [address] [place] [address] ProviderDelvin MD [address] [place] [address] [phone] Social History Tobacco Use Types Packs/Day Years [...] filedocumented in this encounter Care Teams Insurance Salesperson Relationship Specialty Start Date End Date Reji Castro MD [address] [place] [address] PCP - General Adolescent Medicine 10/02/22 documented as of this encounter
--- OUTSIDE RECORDS SUMMARY | 2025-05-24 10:59 | XMS_ITS | Encounter Summary ---
Author Organization [employer] ([place], [place], [place], [place]) Address [address] [place] [address] Care Team Providers Care Vessel Operator Name Role Phone Reji Castro MD Primary Care Provider [phone] Encounter Details Date Type Department Care Team (Late st Contact Info) Description 08/23/2021 Transcribed Document [facility] Radiology [address] [place] [address] Loren Solorzano MD [address] [place] [address] [place] [address] Social History Tobacco Use Types Packs/Day Years [...] cefTRIAXone: 2 Gram, 100 mL/Hr, IV Piggyback, [id number] diphenhydrAMINE: 25 mg, Oral, Q6H, PRN: Itching [...] Oral, BID cefTRIAXone 2 Gram, IV Piggyback, [id number] citalopram 20 mg tab 40 mg 2 [...] Bioprosthetic mitral valve replacement / SNOMED CT 589934464 / Confirmed Chronic kidney disease / SNOMED CT 1218803943 / Confirmed COPD - Chronic obstructive pulmonary disease / SNOMED CT 943751138 / Confirmed History of obstructive sleep apnea / IMO [id number] / Confirmed HLD - Hyperlipidemia / SNOMED CT 346931622 / Confirmed HTN - Hypertension / SNOMED CT 9775120686 / Confirmed Canceled: Atrial fibrillation / SNOMED CT 89250578, Active Problems (25) AIHA (autoimmune hemolytic anemia) [...] 26.0 \ Radiology Results (Last 48 hours) [id number] -- 08/11/2021 21:21 CR Chest 1 Vw [...] Hold home meds SSI #Depression Celexa #Pain Grygla 10 mg every 6 hours as needed CODE STATUS. Full code Dispo: Given patient with history of multiple transfusion we will keep patient in the hospital on heparin drip and Coumadin till INR therapeutic need IV abx, at least until 09/08. Discussed with family caseworker. and pharmcy Time spent 25 minutes documented in this encounter Plan of Treatment Not on file documented as of this encounter Visit Diagnoses Not on filedocumented in this encounter Care Teams Vessel Operator Relationship Specialty Start Date End Date Reji Castro MD [address] [place] [address] PCP - General Adolescent Medicine 10/02/22 documented as of this encounter
--- OUTSIDE RECORDS SUMMARY | 2025-05-24 10:59 | XMS_ITS | Encounter Summary ---
Author Organization [employer] ([place], [place], [place], [place]) Address [address] [place] [address] Care Team Providers Care Granite Worker Name Role Phone Reji Castro MD Primary Care Provider + [phone] Encounter Details Date Type Department Care Team (Late st Contact Info) Description 08/23/2021 Transcribed Document [facility] [place] [facility] [place] [address] ProviderDelvin MD [address] [place] [phone] Social History Tobacco Use Types Packs/Day Years [...] Warfarin HPI: 56 y/o F presenting to [facility] with history of COPD, [...] cefTRIAXone: 2 Gram, 100 mL/Hr, IV Piggyback, [id number]. citalopram: 40 mg, Oral, Daily. diphenhydrAMINE: 25 [...] Balance: -2836 mL A/P: 1.) D/w Dr. Solorzaon at multidisciplinary rounds: tentative plan is keep [...] you, Noy Garrett, PharmD PGY-1 Resident Pager #[phone] Electronically signed by Lanny [facility] Conversion Block Hacker Cerner at 03/09/2023 8:59 PM CDT documented in this encounter Plan of Treatment Not on file documented as of this encounter Visit Diagnoses Not on filedocumented in this encounter Care Teams Granite Worker Relationship Specialty Start Date End Date Reji Castro MD [address] [place] [id number] PCP - General Adolescent Medicine 10/02/22 documented as of this encounter
--- OUTSIDE RECORDS SUMMARY | 2025-05-24 10:59 | XMS_ITS | Encounter Summary ---
Author Organization [employer] ([place], [place], [place], [place]) Address [address] [place] [address] Care Team Providers Care Fire Watchman Name Role Phone Reji Castro MD Primary Care Provider + [phone] Encounter Details Date Type Department Care Team (Late st Contact Info) Description 08/17/2021 Transcribed Document [facility] [place] Family Medicine [address] [place] [address] ProviderDelvin MD [address] [place] [address] [phone] Social History Tobacco Use Types Packs/Day Years [...] filedocumented in this encounter Care Teams Fire Watchman Relationship Specialty Start Date End Date Reji Castro MD [address] [place] [address] PCP - General Adolescent Medicine 10/02/22 documented as of this encounter
--- OUTSIDE RECORDS SUMMARY | 2025-05-24 10:59 | XMS_ITS | Encounter Summary ---
Author Organization [employer] ([place], [place], [place], [place]) Address [address] [place] [address] Care Team Providers Care Package Crimper Name Role Phone Reji Castro MD Primary Care Provider + [phone] Encounter Details Date Type Department Care Team (Late st Contact Info) Description 08/23/2021 Transcribed Document [facility] [place] [address] [place] [address] ProviderDelvin MD [address] [place] [address] [phone] Social History Tobacco Use Types Packs/Day Years [...] filedocumented in this encounter Care Teams Package Crimper Relationship Specialty Start Date End Date Reji Castro MD [address] [place] [address] PCP - General Adolescent Medicine 10/02/22 documented as of this encounter
--- OUTSIDE RECORDS SUMMARY | 2025-05-24 10:59 | XMS_ITS ---
Author Organization [facility] Address [address] [place] [address] Care Team Providers Care Floor Surfacer Name Role Phone Reji Castro MD Primary Care Provider [phone] Transplant Episode Heart Candidate [facility] ([place], [place]) - [facility] Referred on 05/17/2025 Marked as Ineligible on 05/18/2025 Reason: Financial/Insurance Complications Heart CoordinatorMargarita Bill RN Fax: N/A Email: N/A Care Team Name Role Phone Fax Email Margarita Bill RN Motion Picture Actor [phone] N/A N/A Purnima Mathur Chief School Finance Officer [phone] N/A N/A Alysha Disla Spaghetti Press Helper N/A N/A N/A Neil Caldwell MD Referring Physician [phone] N/A Events Pre-Transplant Referred: 05/17/2025
--- OUTSIDE RECORDS SUMMARY | 2025-05-24 10:59 | XMS_ITS | Encounter Summary ---
Author Organization [employer] ([place], [place], [place], [place]) Address [address] [place] [address] Care Team Providers Care Human Resources Office Assistant Name Role Phone Reji Castro MD Primary Care Provider + [phone] Encounter Details Date Type Department Care Team (Late st Contact Info) Description 08/13/2021 Transcribed Document [facility] Family Medicine [facility], [facility] [place] [address] ProviderDelvin MD [address] [place] [address] [phone] Social History Tobacco Use Types Packs/Day Years [...] Warfarin HPI: 56 y/o F presenting [facility] with history of COPD, atrial [...] Encounter/Past 24 Hours) Creatinine Level 1.60 mg/dL PA 08/13/2021 06:13 Bun/Creatinine 31.2 PA 08/13/2021 06:13 Est. CrCl: 61 mL/min Intake [...] questions. Thank you, Andrea Moraes, PharmD PGY1 Translator Pager: [phone], [phone]. [phone] documented in this encounter Plan of Treatment Not on file documented as of this encounter Visit Diagnoses Not on filedocumented in this encounter Care Teams Human Resources Office Assistant Relationship Specialty Start Date End Date Reji Castro MD [address] [place] [address] PCP - General Adolescent Medicine 10/02/22 documented as of this encounter
--- OUTSIDE RECORDS SUMMARY | 2025-05-24 10:59 | XMS_ITS | Encounter Summary ---
Author Organization [facility] Address [address] [place] [address] Care Team Providers Care Hat And Cap Opener Name Role Phone Reji Castro MD Primary Care Provider [phone] Encounter Details Date Type Department Care Team (Late st Contact Info) Description 05/18/2025 Telephone [facility] [place] [address] [place] [id number] Alysha Maloney [place] [id number] Social History Tobacco Use Types Packs/Day Years [...] documented as of this encounter Care Teams Hat And Cap Opener Relationship Specialty Start Date End Date Reji Castro MD [address] [place] [address] PCP - General Internal Medicine 12/08/23 documented as of this encounter
--- OUTSIDE RECORDS SUMMARY | 2025-05-24 10:59 | XMS_ITS | Encounter Summary ---
Author Organization [employer] ([place], [place], [place], [place]) Address [address] [place] [address] Care Team Providers Care Sharepoint Engineer Name Role Phone Reji Castro MD Primary Care Provider + [phone] Encounter Details Date Type Department Care Team (Late st Contact Info) Description 08/17/2021 Transcribed Document [facility] [place] [address] ProviderDelvin MD [address] [place] [address] [id number] Social History Tobacco Use Types Packs/Day Years [...] mg, 14 mL, 128 mL/Hr, IV Piggyback, [id number]. diphenhydrAMINE: 50 mg, IV Push, On-CALL, PRN: [...] questions. Thank you, Andrea Moraes, PharmD PGY1 Cloud Engagement Partner Pager: [phone], Ext. [phone] documented in this encounter Plan of Treatment Not on file documented as of this encounter Visit Diagnoses Not on filedocumented in this encounter Care Teams Sharepoint Engineer Relationship Specialty Start Date End Date Reji Castro MD [address] [place] [address] PCP - General Adolescent Medicine 10/02/22 documented as of this encounter
--- OUTSIDE RECORDS SUMMARY | 2025-05-24 10:59 | XMS_ITS | Encounter Summary ---
Author Organization [employer] ([place], [place], [place], [place]) Address [address] [place] [address] Care Team Providers Care Pharmacy Tech Customer Service Name Role Phone Reji Castro MD Primary Care Provider [phone] Encounter Details Date Type Department Care Team (Late st Contact Info) Description 08/17/2021 Transcribed Document [facility] [place] [facility] [place] [address] ProviderDelvin MD [address] [place], [place] [phone] Social History Tobacco Use Types Packs/Day Years [...] filedocumented in this encounter Care Teams Pharmacy Tech Customer Service Relationship Specialty Start Date End Date Reji Castro MD [address] [place] [address] PCP - General Adolescent Medicine 10/02/22 documented as of this encounter
--- OUTSIDE RECORDS SUMMARY | 2025-05-24 10:59 | XMS_ITS | Encounter Summary ---
Author Organization [employer] ([place], [place], [place], [place]) Address [address] [place] [address] Care Team Providers Care Derrick Worker Well Service Name Role Phone Reji Castro MD Primary Care Provider + [phone] Encounter Details Date Type Department Care Team (Late st Contact Info) Description 08/23/2021 Transcribed Document [facility] [place] [address] ProviderDelvin MD [address] [place] [address] [phone] Social History Tobacco Use Types Packs/Day Years [...] On: 08/23/2021 5:00 EDT by Cecilia Lai Business Services Sales Representative-Student Nurse Chart Check Powerplans Initiated/Discontinued as Appropriate : Yes All Active Orders Reviewed : Yes Cecilia Lai Business Services Sales Representative-Student Nurse - 08/23/2021 5:19 EDT documented in this encounter Plan of Treatment Not on file documented as of this encounter Visit Diagnoses Not on filedocumented in this encounter Care Teams Derrick Worker Well Service Relationship Specialty Start Date End Date Reji Castro MD [address] [place] [address] PCP - General Adolescent Medicine 10/02/22 documented as of this encounter
--- OUTSIDE RECORDS SUMMARY | 2025-05-24 10:59 | XMS_ITS | Encounter Summary ---
Author Organization [employer] ([place], [place], [place], [place]) Address [address] [place] [address] Care Team Providers Care Science Teacher Name Role Phone Reji Castro MD Primary Care Provider + [phone] Encounter Details Date Type Department Care Team (Late st Contact Info) Description 08/17/2021 Transcribed Document [facility] [place] [facility] [place] [address] ProviderDelvin MD [address] [place] [address] [phone] Social History Tobacco Use Types Packs/Day Years [...] port could not be accessed. Her machine silk screen printer aspirated fluid from the port that was [...] antibiotics. On 08/08 [facility] she developed severe CHEUNG and myalgias w/o prominent fever. She was subsequently contacted and told to report to [facility] because she had + blood cutures concerning for an infected portacath +/- PVE. I contacted the micro lab at 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 Integumentary: Warm, [place]. Neurologic: Alert, Oriented, No focal deficits. Psychiatric: [...] on filedocumented in this encounter Care Teams Science Teacher Relationship Specialty Start Date End Date Reji Castro MD [address] [place] [address] PCP - General Adolescent Medicine 10/02/22 documented as of this encounter
--- OUTSIDE RECORDS SUMMARY | 2025-05-24 10:59 | XMS_ITS | Encounter Summary ---
Author Organization [employer] ([place], [place], [place], [place]) Address [address] [place] [address] Care Team Providers Care Rockboard Lather Name Role Phone Reji Castro MD Primary Care Provider + [phone] Encounter Details Date Type Department Care Team (Late st Contact Info) Description 08/23/2021 Transcribed Document [facility] [place] [address] ProviderDelvin MD [address] [place] [address] [phone] Social History Tobacco Use Types Packs/Day Years [...] cefTRIAXone: 2 Gram, 100 mL/Hr, IV Piggyback, [id number] diphenhydrAMINE: 25 mg, Oral, Q6H, PRN: Itching [...] Oral, BID cefTRIAXone 2 Gram, IV Piggyback, [id number] citalopram 20 mg tab 40 mg 2 [...] Bioprosthetic mitral valve replacement / SNOMED CT 440229464 / Confirmed Chronic kidney disease / SNOMED CT 7036634620 / Confirmed COPD - Chronic obstructive pulmonary disease / SNOMED CT 269392247 / Confirmed History of obstructive sleep apnea / IMO 22045765 / Confirmed HLD - Hyperlipidemia / SNOMED CT 141147650 / Confirmed HTN - Hypertension / SNOMED CT 0246862432 / Confirmed Canceled: Atrial fibrillation / SNOMED CT 90759354, Active Problems (25) AIHA (autoimmune hemolytic anemia) [...] [facility] Conversion Oracle Ascp Consultant Cerner at 03/09/2023 8:48 PM CDT documented in this encounter Plan of Treatment Not on file documented as of this encounter Visit Diagnoses Not on filedocumented in this encounter Care Teams Rockboard Lather Relationship Specialty Start Date End Date Reji Castro MD [address] [place] [address] PCP - General Adolescent Medicine 10/02/22 documented as of this encounter
--- OUTSIDE RECORDS SUMMARY | 2025-05-24 10:59 | XMS_ITS | Encounter Summary ---
Author Organization [employer] ([place], [place], [place], [place]) Address [address] [place] [address] Care Team Providers Care Internet Merchant Name Role Phone Reji Castro MD Primary Care Provider + [phone] Encounter Details Date Type Department Care Team (Late st Contact Info) Description 08/18/2021 Transcribed Document [facility] [place] [facility] [place] [address] ProviderDelvin MD [address] [place] [address] [phone] Social History Tobacco Use Types Packs/Day Years [...] History of obstructive sleep apnea / IMO 20870688 / Confirmed Bioprosthetic mitral valve replacement / SNOMED CT 974863161 / Confirmed Chronic kidney disease / SNOMED CT 4959609934 / Confirmed COPD - Chronic obstructive pulmonary disease / SNOMED CT 398969521 / Confirmed HTN - Hypertension / SNOMED CT 4466358027 / Confirmed HLD - Hyperlipidemia / SNOMED CT 369018790 / Confirmed Amblyopia / SNOMED CT 8886486413 / Confirmed 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 / SNOMED CT 323286654 / Confirmed Myocardial infarction / SNOMED CT 96490138 / Confirmed Atrial fibrillation / SNOMED CT 80702441 / Confirmed GERD - Gastro-esophageal reflux disease / SNOMED CT 1683489254 / Confirmed Diverticulosis / SNOMED CT 0176581478 / Confirmed Hepatomegaly / SNOMED CT 550233294 / Confirmed Renal calculus / SNOMED CT 541292604 / Confirmed Ovarian cyst / SNOMED CT 178521692 / Confirmed Arthritis / SNOMED CT 6075118 / Confirmed Back pain / PNED [id number] / Confirmed Fibromyalgia / SNOMED CT 14575747 / Confirmed Restless legs syndrome / SNOMED CT 82504077 / Confirmed Diabetes mellitus type II / SNOMED CT 27458988 / Confirmed Thyroid disease / SNOMED CT 075428940 / Confirmed Edema / SNOMED CT 173917705 / Confirmed BLE neuropathy hands and feet / Confirmed frequent headache / Confirmed AIHA (autoimmune hemolytic anemia) / SNOMED CT 6092307340 / Confirmed, Active Problems (25) AIHA (autoimmune [...] on filedocumented in this encounter Care Teams Internet Merchant Relationship Specialty Start Date End Date Reji Castro MD [address] [place] [address] PCP - General Adolescent Medicine 10/02/22 documented as of this encounter
--- OUTSIDE RECORDS SUMMARY | 2025-05-24 10:59 | XMS_ITS | Encounter Summary ---
Author Organization [employer] ([place], [place], [place], [place]) Address [address] [place] [address] Care Team Providers Care Hall Monitor Name Role Phone Reji Castro MD Primary Care Provider + [phone] Encounter Details Date Type Department Care Team (Late st Contact Info) Description 08/13/2021 Transcribed Document [facility] [place] [address] [place] [address] ProviderDelvin MD [address] [place] [address] 125081 Social History Tobacco Use Types Packs/Day Years [...] On: 08/13/2021 10:20 EDT by Reina Tian, DYNAMITE CARTRIDGE CRIMPER Phone Call for Consults Consult Phone Call/Page [...] Returned : 08/14/2021 10:39 EDT Reina Tian, DYNAMITE CARTRIDGE CRIMPER - 08/13/2021 10:37 EDT Electronically signed by Lanny, [facility] Conversion Decorator Street And Building Cerner at 03/09/2023 8:38 PM CDT documented in this encounter Plan of Treatment Not on file documented as of this encounter Visit Diagnoses Not on filedocumented in this encounter Care Teams Hall Monitor Relationship Specialty Start Date End Date Reji Castro MD [address] [place] [address] PCP - General Adolescent Medicine 10/02/22 documented as of this encounter
--- OUTSIDE RECORDS SUMMARY | 2025-05-24 10:59 | XMS_ITS | Encounter Summary ---
Author Organization [employer] ([place], [place], [place], [place]) Address [address] [place] [address] Care Team Providers Care Puppet Master Name Role Phone Reji Castro MD Primary Care Provider + [phone] Encounter Details Date Type Department Care Team (Late st Contact Info) Description 08/17/2021 Transcribed Document [facility] [place] [address] [place] [address] ProviderDelvin MD [address] [place] [id number] Social History Tobacco Use Types Packs/Day Years [...] on filedocumented in this encounter Care Teams Puppet Master Relationship Specialty Start Date End Date Reji Castro MD [address] [place] [address] PCP - General Adolescent Medicine 10/02/22 documented as of this encounter
--- OUTSIDE RECORDS SUMMARY | 2025-05-24 10:59 | XMS_ITS | Clinical Summary ---
Author Organization [facility] Address [address] [facility] [address] [place] [address] Phone Care Team Providers Care Dietary Aid Name Role Phone Joan Moore MD [ [...] other specified staphylococcus Autoimmune hemolytic anemia, unspecified 040140799 (SNOMED CT) Active 0 Lisa Torres Autoimmune hemolytic anemia COPD 31596780 (SNOMED CT) Active 0 Lisa Torres Chronic obstructive pulmonary disease Presence of prosthetic heart valve Z95.2 (ICD-10-CM) Active 0 Lisa Torres Presence of prosthetic heart valve HTN CKD, bgn, 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) 3900825 (SNOMED CT) Active 0 Lisa Torres Benign essential hypertension Medications Medication Instructions Start Date Stop Date Generic Name [facility] Provider CEFTRIAXONE SODIUM 1 GM SOLR 2gm IV Q 24hrs through 09/08 [facility] 520-1352 ceftriaxone 68303481055 [place] LEVOTHYROXINE SODIUM 25 MCG TABS TAKE 1 TABLET BY MOUTH DAILY levothyroxine 51911930776 Belkis Mattson BUMETANIDE 2 MG TABS bumetanide 25479790735 Belkis Mattson DEXILANT 60 MG CPDR dexlansoprazole 06165977279 Belkis Mattson OLOPATADINE HCL 0.2 % SOLN olopatadine 24113420533 Belkis Mattson ALPRAZOLAM 0.5 MG TABS alprazolam 55847499027 Belkis Mattson WARFARIN SODIUM 4 MG TABS warfarin 66139735612 Belkis Mattson SPIRONOLACTONE 25 MG TABS TAKE 1 TABLET BY MOUTH ONCE A DAY. spironolactone 94675742252 Belkis Mattson FOLIC ACID 1 MG TABS TAKE 1 TABLET BY MOUTH ONCE A DAY. folic acid 13812425201 Belkis Mattson RAMY ASPIRIN EC LOW DOSE 81 MG TBEC aspirin 51581062169 Belkis Mattson CELEXA 40 MG TABS citalopram 75574501181 Belkis Mattson docusate sodium unspecified unspecified docusate sodium 62880205588 Angelita Mattson FAMOTIDINE 20 MG TABS famotidine 35319921031 Belkis Mattson PERCOCET 10-325 MG TABS oxycodone-acetam i nophen 30835715921 Belkis Mattson TOPROL XL 25 MG [id number] metoprolol succinate 29405128725 Belkis Mattson CEFTRIAXONE SODIUM 1 GM SOLR 2gm IV Q 24hrs through 09/08 HH [facility] HH 234-2560 ceftriaxone 93402858236 [facility] Medications Administered No information available. Allergies, [...] Active Bethany celiafan Mattson BUPRENORPHINE Moderate Active Envaeh any Mattson ANABOLIC STERIODS congewtive heart failure [...]
--- OUTSIDE RECORDS SUMMARY | 2025-05-24 10:59 | XMS_ITS | Encounter Summary ---
Author Organization [facility] Address [address] [place] [address] Care Team Providers Care Dance Historian Name Role Phone Reji Castro MD Primary Care Provider [phone] Reason for Referral * Consultation (Routine) - Authorized Specialty Diagnoses / Procedures Referred By Contac t Referred To Contact Nephrology Diagnoses Stage 3b chronic kidney disease (CMS/HCC) Reji Castro MD [address] [place] [address] Phone: tel: fax: [facility] [address] [facility], [address] [place] [address] Phone: tel: fax: Referral ID Status Reason Start Date Expiration Date Visits Requested Visits Authorized [id number] Authorized Specialty Services Required 05/23/2025 11/22/2026 1 1 Encounter Details Date Type Department Care Team ([facility] st Contact Info) Description 05/23/2025 [facility] [address] [place] [address] Reji Castro MD [address] [place] [address] Stage 3b chronic kidney disease [...] documented as of this encounter Care Teams Dance Historian Relationship Specialty Start Date End Date Reji Castro MD [address] [place] [address] PCP - General Internal Medicine 12/08/23 documented as of this encounter
--- OUTSIDE RECORDS SUMMARY | 2025-05-24 10:59 | XMS_ITS | Encounter Summary ---
Author Organization [employer] ([place], [place], [place], [place]) Address [address] [place] [address] Care Team Providers Care Arts And Sciences Dean Name Role Phone Reji Castro MD Primary Care Provider + [phone] Encounter Details Date Type Department Care Team (Late st Contact Info) Description 08/17/2021 Transcribed Document [facility] [place] [facility] [place] [address] ProviderDelvin MD [address] [place] [phone] Social History Tobacco Use Types Packs/Day Years [...] on filedocumented in this encounter Care Teams Arts And Sciences Dean Relationship Specialty Start Date End Date Reji Castro MD [address] [place] [address] PCP - General Adolescent Medicine 10/02/22 documented as of this encounter
--- OUTSIDE RECORDS SUMMARY | 2025-05-24 10:59 | XMS_ITS | Encounter Summary ---
Author Organization [facility] Address [address] [place] [address] Care Team Providers Care Air Cargo Specialist Supervisor Name Role Phone Reji Castro MD Primary Care Provider [phone] Encounter Details Date Type Department Care Team (Late st Contact Info) Description 05/07/2025 Orders Only External Location [address] [place] [address] Provider, External Social History Tobacco Use Types [...] place to sleep or slept in a fci (including now)? No 11/19/2023 Utilities Answer Date [...] documented as of this encounter Care Teams Air Cargo Specialist Supervisor Relationship Specialty Start Date End Date Reji Castro MD [address] [place] [address] PCP - General Internal Medicine 12/08/23 documented as of this encounter
--- OUTSIDE RECORDS SUMMARY | 2025-05-24 10:59 | XMS_ITS | Encounter Summary ---
Author Organization [employer] ([place], [place], [place], [place]) Address [address] [place] [address] Care Team Providers Care Manager Food Name Role Phone Reji Castro MD Primary Care Provider + [phone] Encounter Details Date Type Department Care Team (Late st Contact Info) Description 08/23/2021 Transcribed Document [facility] [place] [facility] [place] [address] ProviderDelvin MD [address] [place] [id number] Social History Tobacco Use Types Packs/Day Years Used Date Smoking Tobacco: Never Assessed Comments Unknown Sex and Gender Information Value Date Recorded Sex Assigned at Not on file Legal Sex Female 4:32 PM CDT Gender Identity Not on file Sexual Orientation Not on file documented as of this encounter Miscellaneous Notes * Cerner Conversion Note - Historical ProviderMD - 08/23/2021 2:00 AM CDT 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 Details Entered On: 08/23/2021 2:15 EDT Performed On: 08/23/2021 2:00 EDT by Cecilia Lai, Meat Packer-Student Nurse Order Details Transport Mode Order Detail : Wheelchair Isolation Precautions Order Detail : Standard Precautions Order Detail : 0 IV Order Detail : 1 Oxygen Order Detail : 0 Lift/Transfer : Independent Central Line Order Detail : Yes Room Service : Appropriate Arterial Line : No Patient Needs Meds Crushed/Liquid : No Cecilia Lai, Meat Packer-Student Nurse - 08/23/2021 2:15 EDT documented in this encounter Plan of Treatment Not on file documented as of this encounter Visit Diagnoses Not on filedocumented in this encounter Care Teams Manager Food Relationship Specialty Start Date End Date Reji Castro MD [address] [place] [address] PCP - General Adolescent Medicine 10/02/22 documented as of this encounter
--- OUTSIDE RECORDS SUMMARY | 2025-05-24 10:59 | XMS_ITS | Encounter Summary ---
Author Organization [facility] Address [address] [place] [address] Care Team Providers Care Insurance Clerk Name Role Phone Reji Castro MD Primary Care Provider [phone] Encounter Details Date Type Department Care Team (Late st Contact Info) Description 05/07/2025 Orders Only External Location [address] [place] [address] Provider, External Social History Tobacco Use Types [...] documented as of this encounter Care Teams Insurance Clerk Relationship Specialty Start Date End Date Reji Castor MD [address] [place] [address] PCP - General Internal Medicine 12/08/23 documented as of this encounter
== END 2025-05-24 23:59 | disposition home or self-care (01) ==
PROVIDERS: PCP Internal Medicine Adolescent Medicine; Visit Provider Internal Medicine Medical Oncology
DX: I82.C12 Acute embolism and thrombosis of left internal jugular vein (principal); I82.B12 Acute embolism and thrombosis of left subclavian vein; I82.A12 Acute embolism and thrombosis of left axillary vein; I82.622 Acute embolism and thrombosis of deep veins of left upper extremity; D64.9 Anemia, unspecified
CPT/HCPCS: 93971

== ENCOUNTER 2025-05-29 14:03 | Inpatient (IN) | payer MEDICARE, SELFPAY ==
[2025-05-29 14:06] VITALS: PULSE 80; O2SAT 97
--- NOTE | 2025-05-29 14:17 | XR_ITS ---
FINAL REPORT CLINICAL HISTORY: Shortness of breath COMPARISON: 05/07/2025 FINDINGS: CHEST SINGLE VIEW: Moderate to severe cardiomegaly is present. There is evidence of a prior midline sternotomy as well as a pacemaker present. There is a chest port present with its tip in the superior vena cava. The mediastinum is normal. There is no focal infiltrate or edema. Chronic changes are noted in the lung bases. There are no pleural effusions. There is no pneumothorax. There is no osseous abnormality. IMPRESSION: Moderate to severe cardiomegaly, with chronic changes in the lung bases, not significantly changed since the prior exam. Reviewed, Interpreted and Dictated by Urbano Gracia MD Transcribed by Luanne Castaneda Authenticated and [facility]
--- NOTE | 2025-05-29 14:26 | EXP.HP ---
History of Present Illness *Admission Date: 05/29/25 *Reason for visit:: HFrEF exacerbation, thrombus of left upper extremity *History of present illness: Ms. Costa is a 60-year-old female with a complex medical history that includes symptomatic anemia, heart failure with reduced EF (15 to 20%), biventricular AICD, hypertension, hyperlipidemia, cardiomyopathy, chronic kidney disease, mechanical heart valve on warfarin therapy, diabetes mellitus, atrial fibrillation, GERD, COPD. She was directly admitted from the cardiology clinic today after being seen for her follow-up appointment and having worse shortness of breath, bilateral expiratory wheezing, and weakness. Medicine was consulted for admission and further management of her decompensation. Assessment on the floor shows bilateral edema/redness in bilateral lower extremities, she also has notable edema in her left forearm and hand. She had a vascular ultrasound on 05/24/2025 that showed an extensive venous thrombus of left upper extremity. She is stable on 2 L nasal cannula, which she uses as needed at home. Denies fevers, abdominal pain, chills. [facility] Disclaimer: The information contained in this section may have been updated after the patient was seen, as this information can be updated by other users. 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 with INR goal of 2.5-3.5 Third degree heart block Junctional escape rhythm Current use of intermodal dispatcher anticoagulation Afib HFrEF (heart failure with reduced ejection fraction) Partial tear of tendon CHF (NYHA class III, ACC/AHA stage C) Atrial fibrillation, chronic COPD exacerbation CHF exacerbation Anemia Systolic CHF Typical angina Dyspnea Rib fracture Blood transfusion reaction Autoimmune hemolytic anemia Arthritis Hernia Sinus problem Rheumatic heart disease Hypothyroidism Polyarthralgia Pulmonary edema HLD (hyperlipidemia) HTN (hypertension) CAD (coronary artery disease) DM type 2 (diabetes mellitus, type 2) DVT (deep venous thrombosis) Cardiomyopathy Arrhythmia Liver disease Thyroid disease Valvular heart disease Hypertension Hyperlipidemia GERD (gastroesophageal reflux disease) COPD (chronic obstructive pulmonary disease) Class 1 obesity CKD (chronic kidney disease) stage 3, GFR 30-59 ml/min Coronary artery disease Congestive heart failure, NYHA class III NYHA class 3 acute on chronic systolic heart failure Diabetes mellitus Hypertensive heart disease CHF (congestive heart failure) Diastolic heart failure Tricuspid valve regurgitation Surgical History Presence of biventricular AICD History of mitral valve replacement with mechanical valve Mitral valve replaced History of colon resection H/O tubal ligation History of angioplasty History of renal stent History of ureteroscopy History of tubal ligation History of hernia repair History of cardiac catheterization Family History Other Breast cancer COPD (chronic obstructive pulmonary disease) Colon cancer Family history of acute heart failure Family history of hyperlipidemia Family history of hypertension Family history of myocardial infarction Hypertension Stroke Social History (Updated 05/29/25 @ 14:35 by Leslie Olmos RN) Smoking Status: Never smoker smoking status stop date: 01/09/2006 quit status: quit date established second hand exposure: Yes alcohol intake: never substance use type: denies use current occupational status: retired and disabled Travel in the last 8 weeks?: None adopted: No caregiver/support person: No foster care: No household members: significant other housing: house lives independently: Yes marital status: life partner education level: college service: No mcc: No current occupational exposures/hazards: No sexually active: Yes how many partners: 1 are you practicing safe sex: Yes diet: diabetic well-balanced diet: about half the time caffeine: No eating out: rarely or never during the past year weight has: remained stable bhavya/jew: Zoroastrianism special bhavya needs: No agree to transfusion: Yes helmet use: No water heater temp set < 120 deg: Yes working smoke detector in home: Yes fire extinguisher in home: Yes carbon monox detector in home: Yes firearms in home: No do you feel safe at home: Yes victim of physical abuse: No victim of emotional abuse: No victim of sexual abuse: No would you like helpful sources: No Have you lived/traveled outside [place] in past 30 days?: No Contact w/someone who lives/traveled outside [place] past 30 days?: No Exposure to someone with infectious disease in past 14 days?: No Do you have a fever (greater than 100.4 F or 38 C)?: No Have you tested positive for COVID-19?: No Exposed to someone with COVID-19 in past 14 days?: No Do you have a sore throat?: No Do you have a cough?: No Do you have any weakness?: No Are you experiencing any nausea/vomitting?: No Do you have any diarrhea?: No Are you experiencing any unusual bleeding?: No Do you have any muscle aches/pain?: No Do you have any abdominal pain?: No Are you experiencing loss of taste or smell?: No Other Medical History Have you received the Flu Vaccine for this season: No Have you received the Pneumonia Vaccine: Yes Meds Home Medications and Allergies Home Medications ?Medication ?Instructions ?Recorded ?Confirmed ?Type oxycodone-acetaminophen 10 mg-325 1 tab PO QID PRN Pain, Moderate 05/23/18 05/29/25 History mg tablet (Percocet) alprazolam 0.5 mg tablet (Xanax) 0.5 mg PO TID PRN Anxiety 11/29/19 05/29/25 History levothyroxine 25 mcg tablet 25 mcg PO DAILY 06/05/21 05/29/25 History insulin glargine 100 60 units SQ DAILY 02/22/22 05/29/25 History unit-lixisenatide 33 mcg/mL subcutaneous pen (Soliqua 100/33) febuxostat 40 mg tablet 40 mg PO DAILY 02/09/23 05/29/25 History potassium chloride 20 mEq 20 meq PO BID 04/15/23 05/29/25 History tablet,extended release(part/cryst) calcitriol 0.25 mcg capsule 0.25 mcg PO DAILY 10/30/23 05/29/25 History duloxetine 60 mg capsule,delayed 60 mg PO HS 03/06/24 05/29/25 History release empagliflozin 10 mg tablet 10 mg PO DAILY #30 tabs 07/17/24 05/29/25 Rx (Jardiance) warfarin 4 mg tablet 2 mg (1/2 x 4 mg) PO DAILY 30 days 01/05/25 05/29/25 Rx #0 tabs insulin glargine 100 unit/mL (3 14 unit SQ HS 01/17/25 05/29/25 History mL) subcutaneous pen (Lantus Solostar U-100 Insulin) amiodarone 200 mg tablet 200 mg PO DAILY #90 tabs 04/02/25 05/29/25 Rx blood-glucose sensor (Dexcom G6 #1 ea 04/05/25 05/29/25 History Sensor device) blood-glucose transmitter (Dexcom #1 ea 04/05/25 05/29/25 History G6 Transmitter device) blood-glucose,quill buncher and sorter,cont #1 ea 04/05/25 05/29/25 History (Dexcom G6 [employer]ator) dexlansoprazole 60 mg 60 mg PO DAILY 04/05/25 05/29/25 History capsule,biphase delayed release metolazone 2.5 mg tablet 2.5 mg PO DAILY PRN edema 04/05/25 05/29/25 History pen needle, diabetic 32 gauge x #1,200 ea 04/05/25 05/29/25 History metoprolol succinate 25 mg 50 mg (2 x 25 mg) PO DAILY 30 days 04/12/25 05/29/25 Rx tablet,extended release 24 hr #60 tabs spironolactone 25 1 tab PO BID 05/14/25 05/29/25 History mg-hydrochlorothiazide 25 mg tablet bumetanide 2 mg tablet 2 mg PO BID 05/29/25 05/29/25 History New Prescriptions to Start Prescriptions: Allergies Allergy/AdvReac Type Severity Reaction Status Date / Time codeine (CODEINE) Allergy Unknown nausea, Verified 05/29/25 13:11 swelling Corticosteroids Allergy Unknown Unknown Verified 05/29/25 13:11 (Glucocorticoids) allergy (CORTICOSTEROIDS reaction (GLUCOCORTICOIDS)) NSAIDS (Non-Steroidal Allergy Unknown Other Verified 05/29/25 13:11 Anti-Inflamma rosuvastatin (From CRESTOR) Allergy Unknown Unknown Verified 05/29/25 13:11 allergy reaction theophylline (From DAVID-DUR) Allergy Unknown Unknown Verified 05/29/25 13:11 allergy reaction allopurinol Allergy Hives Verified 05/29/25 13:11 Iodinated Contrast Media AdvReac Severe shuts Verified 05/29/25 13:11 (IODINATED CONTRAST- ORAL kidneys AND IV DYE) down and bleeding buprenorphine (From BUPRENEX) AdvReac Intermediate Nausea Verified 05/29/25 13:11 levofloxacin (From Levaquin) AdvReac Other Verified 05/29/25 13:11 lisinopril AdvReac Cough Verified 05/29/25 13:11 prednisone AdvReac Unknown Verified 05/29/25 13:11 allergy reaction sacubitril (From Entresto) AdvReac Hypotension Verified 05/29/25 13:11 valsartan (From Entresto) AdvReac Hypotension Verified 05/29/25 13:11 Exam Constitutional Constitutional: moderate distress, obese, chronically ill appearing and cooperative *Routine HEENT Exam Head: Present normocephalic Eye: Present EOMI and PERRL ENT: Present mucous membranes moist *Routine Neck Exam Neck: Present supple and swelling (Left neck); Absent lymphadenopathy *Routine Respiratory Exam Respiratory: Present CTA bilaterally *Routine Cardiovascular Exam Cardiovascular: Present RRR and murmur Comments: Mechanical click *Routine Abdominal Exam Abdominal: Present soft and normoactive bowel sounds; Absent tenderness *Routine Rectal Exam Rectal:: deferred *Routine Genitalia Exam Genitalia:: deferred *Routine Extremities Exam Extremities: Present edema (2+ to knees, bilateral lower extremities) and tenderness; Absent cyanosis or clubbing *Routine Skin Exam Skin: Present intact, erythema (Bilateral lower extremities) and warm; Absent rash *Routine Neurological Exam Neurological: Present alert, oriented X3 and moving all extremities; Absent altered mental status Assessment and Plan *Assessment and plan (1) Acute on chronic HFrEF (heart failure with reduced ejection fraction): Status: Resolved Category: Medical Code(s): I50.23 - Acute on chronic systolic (congestive) heart failure (2) Iron deficiency anemia: Status: Acute Category: Medical Code(s): D50.9 - Iron deficiency anemia, unspecified (3) Anticoagulation goal of INR 2.5 to 3.5: Status: Acute Category: Medical Code(s): Z51.81 - Encounter for therapeutic drug level monitoring; Z79.01 - 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) use of anticoagulants (4) Presence of biventricular AICD: Status: Acute Category: Surgical Code(s): Z95.810 - Presence of automatic (implantable) cardiac defibrillator (5) History of mitral valve replacement with mechanical valve: Status: Acute Category: Surgical Code(s): Z95.2 - Presence of prosthetic heart valve (6) CKD (chronic kidney disease) stage 4, GFR 15-29 ml/min: Status: Acute Category: Medical Code(s): N18.4 - Chronic kidney disease, stage 4 (severe) (7) Pulmonary hypertension: Status: Suspected Category: Medical Code(s): I27.20 - Pulmonary hypertension, unspecified (8) Diabetes mellitus: Status: Acute Qualifiers: Diabetes mellitus complication status: without complication Diabetes mellitus type: type 1 Qualified Code(s): E10.9 - Type 1 diabetes mellitus without complications Category: Medical Code(s): E11.9 - Type 2 diabetes mellitus without complications (9) Atrial fibrillation, chronic: Status: Acute Category: Medical Code(s): I48.20 - Chronic atrial fibrillation, unspecified (10) COPD (chronic obstructive pulmonary disease): Status: Acute Qualifiers: COPD type: unspecified COPD Qualified Code(s): J44.9 - Chronic obstructive pulmonary disease, unspecified Category: Medical Code(s): J44.9 - Chronic obstructive pulmonary disease, unspecified (11) GERD (gastroesophageal reflux disease): Status: Acute Qualifiers: Esophagitis presence: esophagitis presence not specified Qualified Code(s): K21.9 - Gastro-esophageal reflux disease without esophagitis Category: Medical Code(s): K21.9 - Gastro-esophageal reflux disease without esophagitis (12) HTN (hypertension): Status: Acute Qualifiers: Hypertension type: unspecified Qualified Code(s): I10 - Essential (primary) hypertension Category: Medical Code(s): I10 - Essential (primary) hypertension (13) Thrombosis of left upper extremity: Status: Acute Category: Medical Code(s): I82.602 - Acute embolism and thrombosis of unspecified veins of left upper extremity Ginny Costa is a 59-year-old female with a history of autoimmune hemolytic anemia, mechanical mitral valve, HFrEF, chronic anticoagulation, hypertension, chronic A-fib. Presented to cardiology clinic and was found to be in increased respiratory distress with increased swelling in her legs. Concern for HFrEF exacerbation. In addition she was found to have a left upper extremity thrombosis, discussed with cardiology for direct admission for further management of care. I agreed to admit for further care. Initiated on Bumex 2 mg IV once now and Bumex drip 1 mg an hour. Necessitating inpatient care. Problems addressed as follows: #Acute on chronic HFrEF #Mechanical mitral valve #Chronic A-fib - proBNP 7180, BNP on 05/07/2025 was 3810. - Started Bumex 2 mg once now, Bumex infusion 1 mg/hour IV. Patient currently takes 2 mg Bumex twice daily. Start spironolactone 50 mg daily. - N.p.o. at midnight, cardiology to evaluate left upper arm thrombosis. - Continue warfarin for goal INR 2.5-3.5. INR 2.95 on admission. - Echo obtained 04/05/2025 showed grade 3 diastolic dysfunction with a LVEF of 15 to 20%. - BiV pacemaker placed 07/11/2024. - CardioMEMS in place but no longer transmitting information. - Continue amiodarone 200 mg daily and metoprolol 50 mg daily. - Patient awaiting call from for cardiac MRI with and without contrast, to evaluate for possible heart transplant. - Edema noted bilateral thighs, knees, lower extremities. Edema also noted in left forearm and hand, likely related to known left upper extremity thrombus. #TRISTAN on CKD - Sodium 128, potassium 4.0. BUN 75 with creatinine 2.3. Magnesium 2.4. - Kidney function worse from baseline. Baseline creatinine appears to be between 1.7-1.9. Concern for renal congestion. Anticipate improvement with diuresis. Repeat labs ordered for the morning. - Needs nephrology referral as an outpatient, still making urine at this time. Patient states she is not urinating as much as usual, will monitor strict I's and O's. #Chronic autoimmune hemolytic anemia - Labs at time of admission with white count of 7.5, hemoglobin 9.6. Hemoglobin at patient baseline. - Repeat CBC, CMP, INR and PT ordered for the morning #Type 2 diabetes ? Hemoglobin A1c ordered?pending. ? LDSSI, ACHS glucose checks. Use Dexcom for glucose checks. - Continue home insulin glargine 14 units nightly, holding Jardiance in the setting of worsening kidney function #Thrombus of left upper extremity ?Patient had venous Doppler study 05/24/2025 showing extensive venous thrombus of left upper extremity. She followed up in cardiology today was admitted to the floor for possible intervention. Patient n.p.o. at midnight. #COPD ?Chest x-ray obtained personally reviewed by myself shows cardiomyopathy with biventricular pacemaker in place. Chronic pain continue oxycodone 10 mg 4 times a day as needed for severe pain Hypothyroid: Continue levothyroxine 25 mcg daily Depression: Continue Cymbalta 60 mg nightly, continue Xanax 0.5 mg 3 times a day as needed for anxiety Mechanical mitral valve-Continue Coumadin therapy Chronic atrial fibrillation-rate controlled. Continue home amiodarone. Hold home warfarin. Full code DVT prophylaxis: Continue warfarin per home regimen Diabetic diet?n.p.o. at midnight
[2025-05-29 14:39] LABS: Hematocrit 31.0 % (37.0-47.0); Hemoglobin 9.6 g/dL (12.2-16.2); Immature Granulocytes % 0.5 %; Mean Corpuscular HGB Conc 31.0 g/dL (31.8-35.4); Mean Corpuscular Hemoglobin 26.9 pg (27.0-31.2); Mean Corpuscular Volume 86.8 fl (81-99); Nucleated Red Blood Cells % 0 %; Platelet Count 179 K/mm3 (142-424); Red Blood Count 3.57 M/mm3 (4.20-5.40); Red Cell Distribution Width-SD 67.3 fL; White Blood Count 7.5 K/mm3 (4.8-10.8)
[2025-05-29 15:02] LABS: Alanine Aminotransferase 21 U/L (12-78); Albumin Level 4.2 g/dl (3.5-5.0); Albumin/Globulin Ratio 1.4 (1.1-1.8); Alkaline Phosphatase 151 U/L (38-126); Anion Gap 18.0 mEq/L (5-15); Aspartate Amino Transferase 33 U/L (14-36); Bilirubin,Total 1.0 mg/dl (0.2-1.3); Blood Urea Nitrogen 75 mg/dl (7-17); Calcium 9.3 mg/dl (8.4-10.2); Carbon Dioxide 32 mmol/L (22.0-30.0); Chloride 82 mmol/L (98-107); Creatinine,Serum 2.30 mg/dl (0.52-1.04); Estimated Glomerular Filt Rate 21 ml/min (>60); GFR (African American) 26 ML/MIN (>60); Globulin 2.9 g/dL (1.3-3.2); Glucose 156 mg/dl (74-100); Magnesium 2.4 mg/dl (1.6-2.3); Phosphorous 3.5 mg/dl (2.5-4.5); Potassium 4.0 mmoL/L (3.5-5.1); Sodium 128 mmol/L (136-145); Total Protein,Serum 7.1 g/dl (6.3-8.2)
[2025-05-29 15:07] LABS: INR 2.95 (0.9-1.1); Prothrombin Time 30.2 seconds (10.1-12.5)
[2025-05-29 15:20] LABS: Total Cells Counted 100
[2025-05-29 15:22] LABS: Hypochromasia 2+
[2025-05-29 15:31] LABS: NT Pro Brain Natriuretic Pep. 7180 pg/mL (0-125)
[2025-05-29 16:00] VITALS: BP 121/85; PULSE 80; RESP 14; TEMP 36.4; O2SAT 98
[2025-05-29] MEDS: BUMETANIDE 10 MG in 0.9 % SODIUM CHLORIDE 60 ML 4 MG IV (16:06)
[2025-05-29] MEDS: BUMETANIDE 1MG/4ML VIAL 2 MG IV (16:15)
[2025-05-29] MEDS: WARFARIN 2MG TABLET 2 MG PO (16:28)
[2025-05-29 16:41] VITALS: BMI 33.7
[2025-05-29] MEDS: OXYCODONE 10MG W/APAP 325MG TABLET 1 EACH PO (16:46)
[2025-05-29 17:06] LABS: POC Glucose,Bedside 172 (70-110)
[2025-05-29] MEDS: IPRATROPIUM/ALBUTEROL 3 ML NEB IH ×2 (18:09→23:07)
[2025-05-29 18:51] VITALS: PULSE 80
--- NOTE | 2025-05-29 19:36 | PC.NURSE ---
FAMILY BROUGHT IN PATIENTS MEDICATIONS, LOCKED IN ACQUISITION ASSOCIATE ROOM TO BE SENT DOWN TO PHARMACY TOMORROW
[2025-05-29 20:00] VITALS: BP 121/71; PULSE 80; PULSE 90; RESP 18; TEMP 36.4; O2SAT 96
[2025-05-29] MEDS: POTASSIUM CHLORIDE 20MEQ TAB 20 MEQ PO (21:16)
[2025-05-29] MEDS: PANTOPRAZOLE 40MG TABLET 40 MG PO (21:16)
[2025-05-29 21:21] LABS: Hemoglobin A1C 7.9 % (4.0-6.0)
[2025-05-29] MEDS: INSULIN GLARGINE 100 UNITS/ML 3ML FLEXPEN 14 UNIT SUBCUT (21:25)
[2025-05-29 21:38] LABS: POC Glucose,Bedside 211 (70-110)
[2025-05-30] VITALS (11 sets, daily range): BP systolic 106–120; BP diastolic 65–76; PULSE 67–100; RESP 16–19; TEMP 36.4–36.6; O2SAT 95–100; BMI 33.5
--- NOTE | 2025-05-30 04:22 | PC.NURSE ---
Pt. was admitted yesterday for Shortness of breath, CHF exacerbation, and LUE thrombosis. Pt. was seen at cardiology clinic yesterday and was directly admitted to MED/surg. Pt. is alert and orientated x 4. Pt is on oxygen 2 liters per NC. Pt. on a Bumex drip for diuresis. Pt. c/o some pain to left side of the neck. rated pain 4/10 and did not want to take any meds at this time. Pt. up to bathroom to void with standby assist. Pt. has swelling to LUE. aslo some mild swelling to BLE. Pt. has a right chest port that is accessed. Pt. sleeping off and on this shift. Personal items and call walker in reach.
[2025-05-30] MEDS: IPRATROPIUM/ALBUTEROL 3 ML NEB IH ×3 (06:25→18:52)
[2025-05-30 07:05] LABS: Hematocrit 30.1 % (37.0-47.0); Hemoglobin 9.3 g/dL (12.2-16.2); Immature Granulocytes % 0.3 %; Mean Corpuscular HGB Conc 30.9 g/dL (31.8-35.4); Mean Corpuscular Hemoglobin 26.6 pg (27.0-31.2); Mean Corpuscular Volume 86.2 fl (81-99); Nucleated Red Blood Cells % 0 %; Platelet Count 174 K/mm3 (142-424); Red Blood Count 3.49 M/mm3 (4.20-5.40); Red Cell Distribution Width-SD 67.2 fL; White Blood Count 7.1 K/mm3 (4.8-10.8)
[2025-05-30 07:21] LABS: INR 2.79 (0.9-1.1); Prothrombin Time 28.7 seconds (10.1-12.5)
[2025-05-30 07:23] LABS: Alanine Aminotransferase 19 U/L (12-78); Albumin Level 4.1 g/dl (3.5-5.0); Albumin/Globulin Ratio 1.4 (1.1-1.8); Alkaline Phosphatase 123 U/L (38-126); Anion Gap 17.2 mEq/L (5-15); Aspartate Amino Transferase 35 U/L (14-36); Bilirubin,Total 1.3 mg/dl (0.2-1.3); Blood Urea Nitrogen 78 mg/dl (7-17); Calcium 9.5 mg/dl (8.4-10.2); Carbon Dioxide 32 mmol/L (22.0-30.0); Chloride 83 mmol/L (98-107); Creatinine Clearance Estimated 39 mL/min (50-200); Creatinine,Serum 2.10 mg/dl (0.52-1.04); Estimated Glomerular Filt Rate 24 ml/min (>60); GFR (African American) 29 ML/MIN (>60); Globulin 2.9 g/dL (1.3-3.2); Glucose 133 mg/dl (74-100); Potassium 4.2 mmoL/L (3.5-5.1); Sodium 128 mmol/L (136-145); Total Protein,Serum 7.0 g/dl (6.3-8.2)
[2025-05-30 07:58] LABS: Total Cells Counted 100
[2025-05-30 08:00] LABS: Hypochromasia 2+
--- NOTE | 2025-05-30 08:14 | HMH.PHAINT1 ---
Pharmacy Intervention Comments: HOME MEDICATION LIST VERIFIED USING LIST FROM OUTPATIENT PHARMACY AND PT INTERVIEW
[2025-05-30] MEDS: OXYCODONE 10MG W/APAP 325MG TABLET 1 EACH PO ×2 (10:30→19:50)
[2025-05-30] MEDS: WARFARIN 2MG TABLET 2 MG PO (10:59)
[2025-05-30] MEDS: AMIODARONE 200 MG PO (11:05)
[2025-05-30] MEDS: CALCITRIOL 0.25 MCG PO (11:07)
[2025-05-30] MEDS: LEVOTHYROXINE 25 MCG PO (11:07)
[2025-05-30] MEDS: PAT OWN MED ***METOPROLOL SUCCINATE XL 25MG 50 MG PO (11:08)
[2025-05-30] MEDS: SPIRONOLACTONE 50 MG 1 EACH PO (11:08)
--- NOTE | 2025-05-30 11:28 | EXP.CARD.CON ---
History of Present Illness History of Present Illness Consult date: 05/30/25 Chief complaint: SOA, LUE pain/edema History of present illness: 60-year-old white female established patient of our office with significant CV history including heart failure reduced ejection fraction with EF around 25 to 30% status post INDUSTRY CONSULTANT-D and CardioMEMS device. She has been referred to [facility] for consideration of cardiac transplant but has not yet had this appointment. She also has a mechanical mitral valve replacement on chronic Coumadin therapy, has severe biatrial dilation, moderate to severe TR, paroxysmal atrial fibrillation, autoimmune hemolytic anemia status post port placement with recurrent current iron and blood transfusions, CKD 3 with baseline creatinine around 2.0. Patient recently saw her counseling psychologist outpatient and had complaint of left upper extremity swelling so she had venous duplex which revealed extensive deep venous thrombosis, with complete thrombosis of left internal jugular vein, partial thrombosis involving left subclavian vein and axillary vein as well as proximal brachial vein. This was discussed with Dr. Sawyer who felt likely secondary to pacemaker wires. Patient already anticoagulated with Coumadin. She was recommended to proceed with medical therapy rather than procedural intervention. Yesterday, patient came to the office with ongoing swelling in this extremity and with about 1 week of worsening dyspnea on exertion and lower extremity edema. She was directly admitted for IV diuresis and consideration of procedural intervention on left upper extremity [facility]SH [facility] Disclaimer: The information contained in this section may have been updated after the patient was seen, as this information can be updated by other users. Medical History (Updated 05/30/25 @ 11:37 by BEATRIS Montanez) Acute on chronic HFrEF (heart failure with reduced ejection fraction) Redness and swelling of lower leg Symptomatic anemia Critical polytrauma Headache Epistaxis Rib pain on right side AICD discharge Non-ST elevation WI (NSTEMI) TRISTAN (acute kidney injury) Hemolytic uremic syndrome Urinary tract infection Infection due to ESBL-producing Escherichia coli Diarrhea Urinary tract infectious disease Encounter for pre-operative cardiovascular clearance Vitamin D deficiency detention current use of anticoagulants with INR goal of 2.5-3.5 Third degree heart block Junctional escape rhythm 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 of 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 control 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 Afib HFrEF (heart failure with reduced ejection fraction) Partial tear of tendon CHF (NYHA class III, ACC/AHA stage C) Atrial fibrillation, chronic COPD exacerbation CHF exacerbation Anemia Systolic CHF Typical angina Dyspnea Rib fracture Blood transfusion reaction Autoimmune hemolytic anemia Arthritis Hernia Sinus problem Rheumatic heart disease Hypothyroidism Polyarthralgia Pulmonary edema HLD (hyperlipidemia) HTN (hypertension) CAD (coronary artery disease) DM type 2 (diabetes mellitus, type 2) DVT (deep venous thrombosis) Cardiomyopathy Arrhythmia Liver disease Thyroid disease Valvular heart disease Hypertension Hyperlipidemia GERD (gastroesophageal reflux disease) COPD (chronic obstructive pulmonary disease) Class 1 obesity CKD (chronic kidney disease) stage 3, GFR 30-59 ml/min Coronary artery disease Congestive heart failure, NYHA class III NYHA class 3 acute on chronic systolic heart failure Diabetes mellitus Hypertensive heart disease CHF (congestive heart failure) Diastolic heart failure Tricuspid valve regurgitation Surgical History Presence of biventricular AICD History of mitral valve replacement with mechanical valve Mitral valve replaced History of colon resection H/O tubal ligation History of angioplasty History of renal stent History of ureteroscopy History of tubal ligation History of hernia repair History of cardiac catheterization Family History Other Breast cancer COPD (chronic obstructive pulmonary disease) Colon cancer Family history of acute heart failure Family history of hyperlipidemia Family history of hypertension Family history of myocardial infarction Hypertension Stroke Social History Smoking Status: Never smoker smoking status stop date: 01/09/2006 quit status: quit date established second hand exposure: Yes alcohol intake: never substance use type: denies use current occupational status: retired and disabled Travel in the last 8 weeks?: None adopted: No caregiver/support person: No foster care: No household members: significant other housing: house lives independently: Yes marital status: life partner education level: college service: No residential: No current occupational exposures/hazards: No sexually active: Yes how many partners: 1 are you practicing safe sex: Yes diet: diabetic well-balanced diet: about half the time caffeine: No eating out: rarely or never during the past year weight has: remained stable bhavya/samaritan: Islam special bhavya needs: No agree to transfusion: Yes helmet use: No water heater temp set < 120 deg: Yes working smoke detector in home: Yes fire extinguisher in home: Yes carbon monox detector in home: Yes firearms in home: No do you feel safe at home: Yes victim of physical abuse: No victim of emotional abuse: No victim of sexual abuse: No would you like helpful sources: No Have you lived/traveled outside [place] in past 30 days?: No Contact w/someone who lives/traveled outside [place] past 30 days?: No Exposure to someone with infectious disease in past 14 days?: No Do you have a fever (greater than 100.4 F or 38 C)?: No Have you tested positive for COVID-19?: No Exposed to someone with COVID-19 in past 14 days?: No Do you have a sore throat?: No Do you have a cough?: No Do you have any weakness?: No Are you experiencing any nausea/vomitting?: No Do you have any diarrhea?: No Are you experiencing any unusual bleeding?: No Do you have any muscle aches/pain?: No Do you have any abdominal pain?: No Are you experiencing loss of taste or smell?: No Review of Systems Constitutional Constitutional: Reports fatigue and Reports weakness Eyes Eyes: Denies loss of vision ENT Ears, Nose, Mouth, and Throat: Denies hearing loss and Denies vertigo *Cardiovascular Cardiovascular: Denies chest pain, Reports dyspnea, Reports leg edema and Denies syncope *Respiratory Respiratory: Denies cough and Reports dyspnea *Gastrointestinal Gastrointestinal: Denies change in stool character, Denies nausea and Denies vomiting *Musculoskeletal Musculoskeletal: Denies muscle weakness Comments: LUE swelling, pain, erythema Integumentary/Breasts Skin/Breast: Denies changing lesions *Neurologic Neurologic: Denies loss of vision, Denies syncope, Denies vertigo and Reports weakness Endocrine Endocrine: Reports fatigue Exam Data for Last 24 hours Vital signs and Labs for Last 24 Hours: Temp Pulse Resp BP Pulse Ox O2 Del Method O2 Flow Rate 97.9 F 79 16 120/71 98 Nasal Cannula 2 05/30/25 08:00 05/30/25 08:00 05/30/25 08:00 05/30/25 08:00 05/30/25 08:00 05/30/25 08:20 05/30/25 08:20 FiO2 28 05/29/25 18:52 Laboratory Results - last 24 hr 05/29/25 14:30: WBC 7.5, RBC 3.57 L, Hgb 9.6 L, Hct 31.0 L, MCV 86.8, MCH 26.9 L, MCHC 31.0 L, RDW 21.3 H, Plt Count 179, MPV 9.6, Neut % (Auto) 85.8 H, Lymph % (Auto) 2.0 L, [place] % (Auto) 9.6 H, Eos % (Auto) 1.7, Baso % (Auto) 0.4, Neut # (Auto) 6.4, Lymph # (Auto) 0.2 L, [place] # (Auto) 0.7, Eos # (Auto) 0.1, Baso # (Auto) 0.0, Total Counted 100, Neutrophils % (Manual) 87 H, Lymphocytes % (Manual) 1 L, Monocytes % (Manual) 11 H, Basophils % (Manual) 1.0, Platelet Estimate Normal, Hypochromasia 2+, PT 30.2 H, INR 2.95 H, Sodium 128 L, Potassium 4.0, Chloride 82 L, Carbon Dioxide 32 H, Anion Gap 18.0 H, BUN 75 H, Creatinine 2.30 H, Estimated GFR 21 L, Est GFR ( Amer) 26 L, Glucose 156 H, Hemoglobin A1c 7.9 H, Calcium 9.3, Phosphorus 3.5, Magnesium 2.4 H, Total Bilirubin 1.0, AST 33, ALT 21, Alkaline Phosphatase 151 H, NT-Pro-B Natriuret Pep 7180 H, Total Protein 7.1, Albumin 4.2, Globulin 2.9, Albumin/Globulin Ratio 1.4 05/29/25 16:49: POC Glucose 172 H 05/29/25 21:13: POC Glucose 211 H 05/30/25 06:35: WBC 7.1, RBC 3.49 L, Hgb 9.3 L, Hct 30.1 L, MCV 86.2, MCH 26.6 L, MCHC 30.9 L, RDW 21.4 H, Plt Count 174, MPV 9.5, Neut % (Auto) 83.3 H, Lymph % (Auto) 2.8 L, [place] % (Auto) 10.9 H, Eos % (Auto) 2.0, Baso % (Auto) 0.7, Neut # (Auto) 5.9, Lymph # (Auto) 0.2 L, [place] # (Auto) 0.8, Eos # (Auto) 0.1, Baso # (Auto) 0.1, Total Counted 100, Neutrophils % (Manual) 88 H, Lymphocytes % (Manual) 4 L, Monocytes % (Manual) 6, Eosinophils % (Manual) 1, Basophils % (Manual) 1.0, Platelet Estimate Normal, Hypochromasia 2+, PT 28.7 H, INR 2.79 H, Sodium 128 L, Potassium 4.2, Chloride 83 L, Carbon Dioxide 32 H, Anion Gap 17.2 H, BUN 78 H, Creatinine 2.10 H, Estimated Creat Clear 39, Estimated GFR 24 L, Est GFR ( Amer) 29 L, Glucose 133 H, Calcium 9.5, Total Bilirubin 1.3, AST 35, ALT 19, Alkaline Phosphatase 123, Total Protein 7.0, Albumin 4.1, Globulin 2.9, Albumin/Globulin Ratio 1.4 I & O for Last 24 hours: Intake & Output 05/27/25 05/28/25 05/29/25 05/30/25 23:59 23:59 23:59 23:59 Intake Total 40 / 40 Output Total 500 / 700 650 / 650 Balance -500 / -670 -610 / -610 Weight 197 lb 196 lb 2 oz Constitutional Constitutional: no acute distress and cooperative Comments: weak *Routine HEENT Exam Eye: Present PERRL *Routine Respiratory Exam Respiratory: Present CTA bilaterally; Absent accessory muscle use, wheezes or crackles *Routine Cardiovascular Exam Cardiovascular: Present RRR, Normal S1 and Normal S2; Absent murmur, gallop or rubs *Routine Abdominal Exam Abdominal: Present soft; Absent tenderness *Routine Extremities Exam Extremities: Present pulses intact; Absent cyanosis or edema Comments: LUE edema, erythema, and pain on exam. Hand is especially swollen with some restricted movement. *Routine Skin Exam Skin: Present intact; Absent erythema or wounds *Routine Neurological Exam Neurological: Present alert and oriented X3 Routine Psychiatric Exam Psychiatric: Present cooperative Meds Home Medications and Allergies Home Medications ?Medication ?Instructions ?Recorded ?Confirmed ?Type oxycodone-acetaminophen 10 mg-325 1 tab PO QID PRN Pain, Moderate 05/23/18 05/29/25 History mg tablet (Percocet) alprazolam 0.5 mg tablet (Xanax) 0.5 mg PO TID PRN Anxiety 11/29/19 05/29/25 History levothyroxine 25 mcg tablet 25 mcg PO DAILY 06/05/21 05/29/25 History insulin glargine 100 60 units SQ DAILY 02/22/22 05/29/25 History unit-lixisenatide 33 mcg/mL subcutaneous pen (Soliqua 100/33) febuxostat 40 mg tablet 40 mg PO DAILY 02/09/23 05/29/25 History potassium chloride 20 mEq 20 meq PO BID 04/15/23 05/29/25 History tablet,extended release(part/cryst) calcitriol 0.25 mcg capsule 0.25 mcg PO DAILY 10/30/23 05/29/25 History duloxetine 60 mg capsule,delayed 60 mg PO HS 03/06/24 05/29/25 History release empagliflozin 10 mg tablet 10 mg PO DAILY #30 tabs 07/17/24 05/29/25 Rx (Jardiance) warfarin 4 mg tablet 2 mg (1/2 x 4 mg) PO DAILY 30 days 01/05/25 05/29/25 Rx #0 tabs insulin glargine 100 unit/mL (3 14 unit SQ HS 01/17/25 05/29/25 History mL) subcutaneous pen (Lantus Solostar U-100 Insulin) amiodarone 200 mg tablet 200 mg PO DAILY #90 tabs 04/02/25 05/29/25 Rx blood-glucose sensor (Dexcom G6 #1 ea 04/05/25 05/29/25 History Sensor device) blood-glucose transmitter (Dexcom #1 ea 04/05/25 05/29/25 History G6 Transmitter device) blood-glucose,clerical aide,cont #1 ea 04/05/25 05/29/25 History (Dexcom G6 Poultry Hatchery Supervisor) dexlansoprazole 60 mg 60 mg PO DAILY 04/05/25 05/29/25 History capsule,biphase delayed release metolazone 2.5 mg tablet 2.5 mg PO DAILY PRN edema 04/05/25 05/29/25 History pen needle, diabetic 32 gauge x #1,200 ea 04/05/25 05/29/25 History metoprolol succinate 25 mg 50 mg (2 x 25 mg) PO DAILY 30 days 04/12/25 05/29/25 Rx tablet,extended release 24 hr #60 tabs bumetanide 2 mg tablet 2 mg PO BID 05/29/25 05/29/25 History spironolactone 50 mg tablet 50 mg PO BID 05/30/25 05/30/25 History New Prescriptions to Start Prescriptions: Allergies Allergy/AdvReac Type Severity Reaction Status Date / Time codeine (CODEINE) Allergy Unknown nausea, Verified 05/29/25 13:11 swelling Corticosteroids Allergy Unknown Unknown Verified 05/29/25 13:11 (Glucocorticoids) allergy (CORTICOSTEROIDS reaction (GLUCOCORTICOIDS)) NSAIDS (Non-Steroidal Allergy Unknown Other Verified 05/29/25 13:11 Anti-Inflamma rosuvastatin (From CRESTOR) Allergy Unknown Unknown Verified 05/29/25 13:11 allergy reaction theophylline (From DAVID-DUR) Allergy Unknown Unknown Verified 05/29/25 13:11 allergy reaction allopurinol Allergy Hives Verified 05/29/25 13:11 Iodinated Contrast Media AdvReac Severe shuts Verified 05/29/25 13:11 (IODINATED CONTRAST- ORAL kidneys AND IV DYE) down and bleeding buprenorphine (From BUPRENEX) AdvReac Intermediate Nausea Verified 05/29/25 13:11 levofloxacin (From Levaquin) AdvReac Other Verified 05/29/25 13:11 lisinopril AdvReac Cough Verified 05/29/25 13:11 prednisone AdvReac Unknown Verified 05/29/25 13:11 allergy reaction sacubitril (From Entresto) AdvReac Hypotension Verified 05/29/25 13:11 valsartan (From Entresto) AdvReac Hypotension Verified 05/29/25 13:11 Assessment and Plan *Assessment and plan (1) Thrombosis of left upper extremity: Status: Acute Category: Medical Code(s): I82.602 - Acute embolism and thrombosis of unspecified veins of left upper extremity (2) Anticoagulation goal of INR 2.5 to 3.5: Status: Acute Category: Medical Code(s): Z51.81 - Encounter for therapeutic drug level monitoring; Z79.01 - termite control technician (current) use of anticoagulants (3) Iron deficiency anemia: Status: Acute Category: Medical Code(s): D50.9 - Iron deficiency anemia, unspecified (4) Presence of biventricular AICD: Status: Acute Category: Surgical Code(s): Z95.810 - Presence of automatic (implantable) cardiac defibrillator (5) History of mitral valve replacement with mechanical valve: Status: Acute Category: Surgical Code(s): Z95.2 - Presence of prosthetic heart valve (6) Chronic renal insufficiency, stage III (moderate): Status: Acute Category: Medical Code(s): N18.30 - Chronic kidney disease, stage 3 unspecified (7) Atrial fibrillation, chronic: Status: Acute Category: Medical Code(s): I48.20 - Chronic atrial fibrillation, unspecified (8) Acute on chronic HFrEF (heart failure with reduced ejection fraction): Status: Acute Category: Medical Code(s): I50.23 - Acute on chronic systolic (congestive) heart failure Plan Acute on Chronic HFrEF s/p INDUSTRY CONSULTANT-D and CardioMEMS - known dx with EF 30-35% awaiting transplant consult at [facility], mechanical MVR, Severe biatrial dilation, moderate to severe TR - 1 week worsening dyspnea on exertion, lower extremity edema, ProBNP 7k, CXR - no effusions or edema noted. - continue home GDMT: Jardiance, Metoprolol, Aldactone. Not on TU/ARB/ARNI secondary to hypotensive intolerance - home dose Bumex 2mg BID changed to Bumex 1mg/hr here - only 1L diuresed since admission so far. Extensive LUE DVT - Venous Duplex 05/24/25 - complete thrombosis of left internal jugular vein, partial thrombosis involving left subclavian vein and axillary vein as well as proximal brachial vein - Case discussed extensively by hematology and interventional cardiology. Presumed secondary to PPM wires. Patient developed clot while already anticoagulated on Coumadin. Risk of intervention assessed as very high at this time. Will try conservative measures with left upper extremity elevation and diuresis. No planned procedural intervention at this time. Paroxysmal atrial fibrillation - V-paced rhythm here - Continue amiodarone, metoprolol, and warfarin Mechanical mitral valve replaced - Normal function per office echo - Continue warfarin Autoimmune hemolytic anemia - Status post port placement - Hemoglobin 9 here - Iron repletion and blood transfusion PRN Hgb <9 CKD 3 - Creatinine 2.3, baseline 2.0 - Monitor with daily labs 05/30: Stable but needing further inpatient diuresis and close monitoring. Likely here another 1-2 days.
--- OUTSIDE RECORDS SUMMARY | 2025-05-30 12:57 | XMS_ITS | Data Portability ---
Author Organization [facility], [facility] CLOS[facility] Address [address] [place] [address] Assessment No assessment recorded. Plan of Treatment Reminders Order Date Submit Date Provider Last Modified By Organization Details Last Modified Time Details Appointments None recorded. Lab glucose, fingersti ck, blood 2016 017 [facility], [address] [place] [address], [address], 7 10:48:08 hemoglobi n A1C, fingersti ck 2016 017 [facility], [address] [place] [address], [address], 7 10:48:09 glucose, fingersti ck, blood 2016 017 [facility], [address] [place] [address], [address], 7 13:30:39 hemoglobi n A1C, fingersti ck 2016 017 [facility], [address] [place] [address], [address], 7 13:30:39 lipid panel, serum 2016 017 [facility], [address] [place] [address], [address], 7 15:04:21 hepatic function panel, serum 2016 017 [facility], [address] [place], [address], 7 14:57:41 microalbu min/creat inine, mass ratio, urine 2016 017 [facility], [address] [place], [address], 7 15:42:42 Referral diabetic ophthalmo logy referral - Uncontrol led type 2 diabetes evaluate for diabetic retinopat hy 2016 017 [email or web address] Jen Ortiz MD, [address] [facility] , [address] [place] [address], [address], 7 11:05:25 Procedures None recorded. Surgeries None recorded. Imaging None recorded. Medication Orders metformin 500 mg tablet 2016 017 [facility], [address] [place], [address], 7 10:48:16 Levemir U-100 Insulin 100 unit/mL subcutane ous solution 2016 017 [facility], [address] [place], [address], 7 10:48:15 Novolin R Regular U-100 Insulin 100 unit/mL injection solution 2016 017 [facility], [address] [place], [address], 7 11:02:41 Januvia 100 mg tablet 2016 017 [facility], [address] [place], [address], 7 10:48:15 metformin 500 mg tablet 2016 017 [facility], [address] [place], [address], 7 13:30:41 Januvia 100 mg tablet 2016 017 [facility], [address] [place], [address], 7 13:30:46 Levemir U-100 Insulin 100 unit/mL subcutane ous solution 2016 017 [email or web address] [facility], [address] [place], [address], 7 10:23:03 Patient TargetsNo targets recorded. Patient Instructions Encounter Date Encounter Id Patient Instructions Last Modified By Organization Details Last Modified Time 01/12/2017 [id number] Further increase Levemir to 30 units every a.m. and 30 units every p.m. Continue metformin 500 mg Pills twice daily with meals Continue Januvia 100 mg Dietary carbohydrate consistency and restriction and not to exceed 45 g of carbohydrate per meal and 15-30 g per snack if needed. Fasting labs today wayoub Not available 01/12/2017 13:30:29 05/20/2017 [id number] Further increase Levemir to 60 units every [...] finge rstic k HbA1c% 9.8 Not Available [facility] [address] [place], [address], 05/20/2017 10:29:00 05/20/20 17 05/20/2017 hemog lobin A1C, finge rstic k [employer] Recomm ended Ranges Not Available [facility] [address] [place] [address], [address], 05/20/2017 10:29:00 05/20/20 17 05/20/2017 hemog lobin A1C, finge rstic k Normal 4.3 - 5.7 Not Available [facility] [address] [place] [address], [address], 05/20/2017 10:29:00 05/20/20 17 05/20/2017 hemog lobin A1C, finge rstic k Increased Risk 5.7 - 6.4 Not Available [facility] [address] [place] [address], [address], 05/20/2017 10:29:00 05/20/20 17 05/20/2017 hemog lobin A1C, finge rstic k Diabetic > 6.5 Not Available [facility] [address] [place] [address], [address], 05/20/2017 10:29:00 05/20/20 17 05/20/2017 gluco se, finge rstic k, blood glucose, fingerstick 215 mg/dL 70 - 100 Not Available [facility] [address] [place] [address], [address], 05/20/2017 10:28:39 01/12/20 17 01/12/2017 hemog lobin A1C, finge rstic k HbA1c% 7.7 Not Available [facility] [address] [place] [address], [address], 01/12/2017 13:17:20 01/12/20 17 01/12/2017 hemog lobin A1C, finge rstic k [employer] Recomm ended Ranges Not Available [facility] [address] [place], [address], 01/12/2017 13:17:20 01/12/20 17 01/12/2017 hemog lobin A1C, finge rstic k Normal 4.3 - 5.7 Not Available [facility] [address] [place], [address], 01/12/2017 13:17:20 01/12/20 17 01/12/2017 hemog lobin A1C, finge rstic k Increased Risk 5.7 - 6.4 Not Available [facility] [address] [place] [address], [address], 01/12/2017 13:17:20 01/12/20 17 01/12/2017 hemog lobin A1C, finge rstic k Diabetic > 6.5 Not Available [facility] [address] [place] [address], [address], 01/12/2017 13:17:20 01/12/20 17 01/12/2017 gluco se, finge rstic k, blood glucose, fingerstick 211 mg/dL 70 - 100 Not Available [facility] [address] [place] [address], [address], 01/12/2017 13:17:00 01/12/20 17 01/12/2017 hepat ic funct ion panel , serum AST 43 U/L 0-32 high Not Available [facility] [address] [place] [address], [address], 01/12/2017 15:04:22 01/12/20 17 01/12/2017 hepat ic funct ion panel , serum ALT 39 U/L 0-33 high Not Available [facility] [address] [place] [address], [address], 01/12/2017 15:04:22 01/12/20 17 01/12/2017 hepat ic funct ion panel , serum alkaline phosphatase 77 U/L 35-105 normal Not Available [facility] [address] [place] [address], [address], 01/12/2017 15:04:22 01/12/20 17 01/12/2017 hepat ic funct ion panel , serum total protein 8.5 g/dL 6.4-8. 3 high Not Available [facility] [address] [place] [address], [address], 01/12/2017 15:04:22 01/12/20 17 01/12/2017 hepat ic funct ion panel , serum albumin 5.0 g/dL 3.5-5. 2 normal Not Available [facility] [address] [place] [address], [address], 01/12/2017 15:04:22 01/12/20 17 01/12/2017 hepat ic funct ion panel , serum bilirubin, total 0.6 mg/dL 0.1-1. 2 normal Not Available [facility] [address] [place] [address], [address], 01/12/2017 15:04:22 01/12/20 17 01/12/2017 hepat ic funct ion panel , serum bilirubin, direct <0.2 mg/dL 0.0-0. 3 normal Not Available [facility] [address] [place] [address], [address], 01/12/2017 15:04:22 01/12/20 17 01/12/2017 hepat ic funct ion panel , serum bilirubin, indirect - mg/dL _calc 0.0-1. 0 abnormal Unabl e to calcu late Indir ect Bilir ubin. Not Available [facility] [address] [place] [address], [address], 01/12/2017 15:04:22 01/12/20 17 01/12/2017 lipid panel , serum HDL cholesterol 33 mg/dL 66-242 low Not Available [facility] [address] [place] [address], [address], 01/12/2017 15:04:21 01/12/20 17 01/12/2017 lipid panel , serum triglyceride s 317 mg/dL 0-149 high TRIGL YCERI DE RANGE S ERIC L: < 150 BORDE RLINE HIGH: 150 - 199 HIGH: 200 - 499 VERY HIGH: > OR = 500 Not Available [facility] [address] [place] [address], [address], 01/12/2017 15:04:21 01/12/20 17 01/12/2017 lipid panel , serum cholesterol 167 mg/dL 0-199 normal DEMARCUS STERO L (TOTA L) RANGE S SENIA ABLE: < 200 BORDE RLINE : 200 - 239 HIGHE R RISK: > 239 Not Available [facility] [address] [place] [address], [address], 01/12/2017 15:04:21 01/12/20 17 01/12/2017 lipid panel , serum LDL cholesterol 71 mg/dL _calc 0-99 normal LDL DEMARCUS STERO L RANGE S OPTIM AL: < 100 NEAR/ ABOVE OPTIM AL: 100 - 129 BORDE RLINE HIGH: 130 - 159 HIGH: 160 - 189 VERY HIGH: > OR = 190 Not Available [facility] [address] [place] [address], [address], 01/12/2017 15:04:21 01/12/20 17 01/12/2017 micro album in/cr eatin ine, mass ratio , urine microalbumin , random <12 mg/L 0-19 normal Not Available [facility] [address] [place] [address], [address], 01/12/2017 15:42:42 01/12/20 17 01/12/2017 micro album in/cr eatin ine, mass ratio , urine creatinine,u r,random 18.24 mg/dL normal NO ERIC L RANGE ESTAB LISHE D FOR RANDO M URINE . Not Available [facility] [address] [place] [address], [address], 01/12/2017 15:42:42 01/12/20 17 01/12/2017 micro album [...] pplem ent 1,s24 -s27, 1996. Not Available [facility] [address], [place], [address], 01/12/2017 15:42:42 03/10/20 24 03/10/2024 XR, shoul sheldon, 2 or more view [place]a [place] [facility] [address] [place] [address] Patirichard t Name: IRINA hall : [phone] [...] Genevieve gonzales MD on 11:27 AM [email or web address] [facility] [place] [address] , [place], [address], 03/13/2024 12:32:32 03/10/20 24 03/10/2024 XR, elbow , 2 view [facility] [address] [place] [address] Patirichard t Name: IRINA hall : [phone] Patirichard t Orderi ng Provid er: [facility] EXAM DATE: 2023 EXAM: XR RT ELBOW, [...] Genevieve gonzales MD on 11:28 AM [email or web address] [facility] [place] [address] , [place], [address], 03/13/2024 12:32:33 03/10/20 24 03/10/2024 [facility], [facility] , [facility] [address] [place] [address] Patien t Name: IRINA Scott t : [...] gonzales MD on 024 11:28 AM [email or web address] [facility] [place] [address] , [place], [address], 03/13/2024 12:32:33 Result Notes Documentation Provider Name and Address Organization Details Recorded Time Xr, Shoulder, 2 Or More View : [facility] [place] [address] [place] [address] Patient Name: IRINA TAMAYO Patient : 1965 [...] MD IE DA SILVA PA-C [address] [place], [address], [facility] 03/13/2024 12:32:32 Xr, Elbow, 2 View : [facility] [address] [place] [address] Patient Name: IRINA TAMAYO Patient : 1965 [...] Baeza MD IE DA SILVA PA-C [address] [place], [address], [facility] 03/13/2024 12:32:33 Xr, Wrist, 2 View : [facility] [address] [place] [address] Patient Name: IRINA TAMAYO Patient : 1965 [...] Baeza MD IE DA SILVA PA-C [address] [place], [address], [facility] 03/13/2024 12:32:33 Problems Name Problem SNOMED Code Status Onset Date Resolution Date Notes Provider Name and Address Organization Details Recorded Time Uncontro lled type 2 diabetes mellitus 999664100 [facility] 2015 [facility] 6 17:33:59 Type 2 diabetes mellitus 95977556 Active 2015 From Automate [employer] Load;Pro vider: Donna Rendon;St atus: Active Not Available [facility] 7 06:21:50 Thyroidi tis Active 2015 From Automate d Load;Pro vider: Uli Fox;Sta tus: Active Not Available [facility] 6 08:01:51 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 667479856 Completed 201501/21/2017 From Automate d Load;Pro vider: Uli Fox;Sta tus: Active JEN ORTIZ MD [address] [place] [address], [address] [place] [address] 7 13:20:24 Disorder of nervous system due to type 2 diabetes mellitus 116086213 Active 2015 From Automate d Load;Pro vider: Donna Rendon;St atus: Active Not Available [facility] 6 08:01:51 Hypothyr oidism 42735886 Active 2015 From Automate d Load;Pro vider: Donna Rendon;St atus: Active Not Available [facility] 6 08:01:51 Hyperlip idemia 71111297 Active 2015 From Automate d Load;Pro vider: Donna Rendon;St atus: Active Not Available [facility] 6 08:01:51 Problem Notes None recorded. Procedures Surgical History Date Name Laterality Status Provider Name and Address Organization Details Recorded Time Cardiac Surgery completed [facility] 01/12/2017 13:15:08 Hernia repair w/mesh completed [facility] 01/12/2017 13:15:15 Mold Maker Surgery completed [facility] 01/12/2017 13:15:56 Imaging Results None recorded. Procedure Notes None recorded. Medical Equipment None Reported. Allergies Allergen ID Allergen Name Allergen Category Reaction Reaction Severity Criticality Documentation Date Start Date Code Code System Note Provider Name and Address Organization Details Recorded Time 067591 codeine medicatio n other Not available Not available 10/16/20162013 2670 RxNorm React ion: OTHER ; Comme nt: Heada junior;C reate d By: Charles barrera;Cr eated Date: 2013 2:31: 40 PM; Not Available [facility] 6 03:13:58 849218 Rocephin medicatio n Not available Not available Not available 10/16/20162013 9449 RxNorm Comme nt: Creat ed By: Charles barrera;Cr eated Date: 2013 2:32: 27 PM; Not Available [facility] 6 03:13:58 100336 Buprenex medicatio n vomiting Not available Not available 10/16/20162013 95187 0 RxNorm React ion: VOMIT ING; Comme nt: Creat ed By: Charles barrera;Cr eated Date: 2013 2:30: 33 PM; Not Available [facility] 6 05:59:46 971961 Levaquin medicatio n Not available Not available Not available 10/16/20162013 02687 2 RxNorm Comme nt: INR;C reate d By: Charles barrera;Cr eated Date: 2013 2:32: 11 PM; Not Available [facility] 6 09:05:33 Medications Name Sig Start Date [...] Address Organization Details Last Updated DateTime 01/12/2017 06507.3 g 162.56 cm 29.4 kg/m2 92 /min 122/62 mm[Hg] [facility] 01/12/2017 13:11:05 Date Recorded Body height Provider Name an d Address Organization Details Last Updated DateTime 01/21/2017 162.56 cm [facility] 01/21/2017 12:52:09 Date Recorded Body height Body mass index (BMI) Body weight Heart rate Systolic And Diastolic Provider Name and Address Organization Details Last Updated DateTime 05/20/2017 162.56 cm 30.2 kg/m2 71250.26 g 71 /min 100/68 mm[Hg] [facility] 05/20/2017 10:22:26 Social History None recorded. Functional Status None recorded. Mental Status None recorded. Family History Relationship Description Onset Age of this Age Resolved Age Notes LastModified by Organization Details LastModified Time Mother Cataract [email or web address] Not availab le 01/21/2017 12:54:54 Mother Diabetes mellitus Not available 01/21 12:55:12 Mother Lazy eye [email or web address] Not availab le 01/21/2017 12:55:30 Father Cataract [email or web address] Not availab le 01/21/2017 12:54:54 Father Diabetes mellitus [email or web address] Not available 01/21 12:55:12 Brother Diabetes mellitus [email or web address] Not available 01/21 12:55:12 Brother Lazy eye [email or web address] Not availa ble 01/21/2017 12:55:30 Brother Legal blindness [email or web address] Not available 01/21 12:55:38 Sister Diabetes mellitus [email or web address] Not available 01/21 12:55:12 Sister Lazy eye Not availab le 01/21/2017 12:55:30 Medical History Condition Response Diabetes Y Heart Problems Y Hypertension Y Lazy Eye Y Gynecological HistoryNo gynecological history recorded. Obstetrics History GPAL:G 0 P 0 0 0 0 Past Encounters Encounter ID Performer Location Encounter Start Date Encounter Closed Date Diagnosis/Indication Diagnosis SNOMED-CT Code Diagnosis ICD10 Code Diagnosis Note [id number] DONNA RENDON MD [facility]INO [facility] [address] [place] [address] 01/12/2017 12:52:33 01/15/2017 11:05:25 Uncontrolled type 2 diabetes mellitus 788518960 E11.65 A1c in the office today elevated [...] liver function test and urinary ACR today [id number] JEN ORTIZ MD [facility] [address] [place] [address] ,3[address] [place] [address] 01/21/2017 12:38:42 01/22/2017 08:17:23 Uncontrolled type 2 diabetes mellitus 862578083 E11.65 I discussed diabetes with this patient. I discussed the importance of sugar control for reducing risk of diabetic complicati ons in the eyes. I recommened they follow up with their PCP/endocr inologist for continue surgar evaluation /managemen t. Also discussed importance of cardiovasc ular risk reduction. Call with changing/f luxuating vision. Amblyopia 232604720 H53. 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 [id number] TOMMIE DA SILVA PA-C [facility] [address] [place] [address] 03/10/2024 10:43:50 03/10/2024 12:53:46 Carpal tunnel syndrome of right wrist 0857234322 74731 G56.01 Assessment : Adhesive capsulitis of the [...] use. Adhesive c apsulitis of right shoulder 4935614130 66642 M75.01 Health Concerns Section Related Observation LastModified by Organization Detai ls LastModified Time None Recorded Concern Status LastModified by Organization Details LastModified Time None Recorded Advance Directives Directive None Recorded Payers Insurance Date Sequence Insurance Name Policy Number Policy Edwards Covered Member ID Edwards Member ID Guarantor Name 06/01/2024 1 [place]MEDICARE REPLACEMENT HMO) [id number] Irina Tamayo [id number] Irina Taamyo 06/02/2024 2 MEDICAID-[facility] CHOICES - FFS/TRADITIONA L Irina Tamayo [id number] Irina Tamayo 01/26/2019 1 *SELF PAY* Geovanna Tamayo 03/10/2024 1 [place] Irina Tamayo [id number] Irina Tamayo Notes Date Note Type Note [...] review: no Hypoglycemia: none DONNA RENDON MD [address] [place] [address], [address], [facility] 01/12/2017 13:35:43 01/21/2017 text/html dec vision odno slltos has not changeds in a long time.reviewed diabetic labs. JEN ORTIZ MD [address] [place] [address], [address], [facility] 01/21/2017 14:06:12 05/20/2017 text/html 51-year-old [...] review: no Hypoglycemia: none DONNA RENDON MD [address] [place] [address], [address], [facility] 05/20/2017 10:48:20 03/10/2024 text/html HAND [...] noINJECTION: no TOMMIE DA SILVA PA-C [address] [place], [address], [facility] 2024 15:42:34 OBGyn Episode No OBEpisode recorded.
--- OUTSIDE RECORDS SUMMARY | 2025-05-30 12:57 | XMS_ITS | Encounter Summary ---
Author Organization [employer] ([place], [place], [place], [place]) Address [address] [place] [address] Care Team Providers Care Awning Hanger Name Role Phone Reji Castro MD Primary Care Provider + [phone] Encounter Details Date Type Department Care Team (Late st Contact Info) Description 08/20/2021 Transcribed Document [facility] [place] [address] ProviderDelvin MD [address] [place] [address] [id number] Social History Tobacco Use Types Packs/Day Years [...] 08/20/2021 9:59 EDT Electronically signed by Lanny [facility] Conversion House Designer Cerner at 03/09/2023 8:58 PM CDT documented in this encounter Plan of Treatment Not on file documented as of this encounter Visit Diagnoses Not on filedocumented in this encounter Care Teams Awning Hanger Relationship Specialty Start Date End Date Reji Castro MD [address] [place] [id number] PCP - General Adolescent Medicine 10/02/22 documented as of this encounter
--- OUTSIDE RECORDS SUMMARY | 2025-05-30 12:57 | XMS_ITS | Encounter Summary ---
Author Organization [email or web address] ([place], [place], [place], [place]) Address [address] [place] [address] Care Team Providers Care Care Provider Name Role Phone Reji Castro MD Primary Care Provider + [phone] Encounter Details Date Type Department Care Team (Late st Contact Info) Description 08/26/2021 Transcribed Document [facility] [place] [facility] [place] [address] ProviderDelvin MD [address] [place] [address] [id number] Social History Tobacco Use Types Packs/Day Years [...] cefTRIAXone: 2 Gram, 100 mL/Hr, IV Piggyback, [id number] diphenhydrAMINE: 25 mg, Oral, Q6H, PRN: Itching [...] Oral, BID cefTRIAXone 2 Gram, IV Piggyback, [id number] citalopram 20 mg tab 40 mg 2 [...] Bioprosthetic mitral valve replacement / SNOMED CT 605394031 / Confirmed Chronic kidney disease / SNOMED CT 7480466362 / Confirmed COPD - Chronic obstructive pulmonary disease / SNOMED CT 410550659 / Confirmed History of obstructive sleep apnea / IMO 40577257 / Confirmed HLD - Hyperlipidemia / SNOMED CT 009690451 / Confirmed HTN - Hypertension / SNOMED CT 7510783006 / Confirmed Canceled: Atrial fibrillation / SNOMED CT 18197427, Active Problems (25) AIHA (autoimmune hemolytic anemia) [...] GFR adjust medications. Electronically signed by Lanny, [facility] Conversion Aircraft Design Engineer Cerner at 03/09/2023 8:56 PM CDT documented in this encounter Plan of Treatment Not on file documented as of this encounter Visit Diagnoses Not on filedocumented in this encounter Care Teams Care Provider Relationship Specialty Start Date End Date Reji Castro MD [address] [place] [address] PCP - General Adolescent Medicine 10/02/22 documented as of this encounter
--- OUTSIDE RECORDS SUMMARY | 2025-05-30 12:57 | XMS_ITS | Encounter Summary ---
Author Organization [employer] ([place], [place], [place], [place]) Address [address] [place] [address] Care Team Providers Care Fire Safety Inspector Name Role Phone Reji Castro MD Primary Care Provider + [phone] Encounter Details Date Type Department Care Team (Late st Contact Info) Description 08/15/2021 Transcribed Document [facility] [place] Family [place] [facility] [place] [address] ProviderDelvin MD [address] [place] [address] [id number] Social History Tobacco Use Types Packs/Day Years [...] Hold home meds SSI #Depression Celexa #Pain [place] 10 mg every 6 hours as needed [...] levothyroxine, 25 mcg= 1 Tab, Oral, Daily [place] 10 mg-325 mg oral tablet, 1 Tab, [...] # 0.58 x10(3)/uL (Low) 08/14/2021 16:02 EDT Camp % 7.1 % 08/15/2021 03:42 EDT Camp % 7.9 % 08/14/2021 16:02 EDT Camp # 0.50 K/uL 08/15/2021 03:42 EDT Camp # 0.53 K/uL 08/14/2021 16:02 EDT Eos [...] (Low) 08/14/2021 16:02 EDT Electronically signed by [facility] Conversion Associate Broker Cerner at 03/09/2023 8:47 PM CDT documented in this encounter Plan of Treatment Not on file documented as of this encounter Visit Diagnoses Not on filedocumented in this encounter Care Teams Fire Safety Inspector Relationship Specialty Start Date End Date Reji Castro MD [address] [place] [address] PCP - General Adolescent Medicine 10/02/22 documented as of this encounter
--- OUTSIDE RECORDS SUMMARY | 2025-05-30 12:57 | XMS_ITS | Encounter Summary ---
Author Organization [employer] ([place], [place], [place], [place]) Address [address] [place] [address] Care Team Providers Care Sewer Tapper Name Role Phone Reji Castro MD Primary Care Provider + [phone] Encounter Details Date Type Department Care Team (Late st Contact Info) Description 08/11/2021 Transcribed Document [facility] [place] Family Medicine [address] [place] [address] ProviderDelvin MD [address] [place] [address] [phone] Social History Tobacco Use Types Packs/Day Years [...] 08/12/2021 9:32 EDT Electronically signed by Lanny [facility] Conversion Cardboard Cutter Cerner at 03/09/2023 8:42 PM CDT documented in this encounter Plan of Treatment Not on file documented as of this encounter Visit Diagnoses Not on filedocumented in this encounter Care Teams Sewer Tapper Relationship Specialty Start Date End Date Reji Castro MD [address] [place] [id number] PCP - General Adolescent Medicine 10/02/22 documented as of this encounter
--- OUTSIDE RECORDS SUMMARY | 2025-05-30 12:57 | XMS_ITS | Encounter Summary ---
Author Organization [employer] ([place], [place], [place], [place]) Address [address] [place] [address] Care Team Providers Care Electrolytic De Scaler Name Role Phone Reji Castro MD Primary Care Provider + [phone] Encounter Details Date Type Department Care Team (Late st Contact Info) Description 08/26/2021 Transcribed Document [facility] [place] Family Medicine [address] [place] [address] ProviderDelvin MD [address] [place] [address] [phone] Social History Tobacco Use Types Packs/Day Years [...] 08/26/2021 4:16 EDT Electronically signed by Lanny [facility] Conversion Helminthologist Cerner at 03/09/2023 8:32 PM CDT documented in this encounter Plan of Treatment Not on file documented as of this encounter Visit Diagnoses Not on filedocumented in this encounter Care Teams Electrolytic De Scaler Relationship Specialty Start Date End Date Reji Castro MD [address] [place] [id number] PCP - General Adolescent Medicine 10/02/22 documented as of this encounter
--- OUTSIDE RECORDS SUMMARY | 2025-05-30 12:57 | XMS_ITS | Encounter Summary ---
Author Organization [employer] ([place], [place], [place], [place]) Address [address] [place] [address] Care Team Providers Care Sports Apparel Internship Name Role Phone Reji Castro MD Primary Care Provider + [phone] Encounter Details Date Type Department Care Team (Late st Contact Info) Description 08/20/2021 Transcribed Document [facility] [place] [facility] [place] [address] ProviderDelvin MD [address] [place] [address] [phone] Social History Tobacco Use Types Packs/Day Years Used Date Smoking Tobacco: Never Assessed Comments Unknown Sex and Gender Information Value Date Recorded Sex Assigned at Not on file Legal Sex Female 4:32 PM CDT Gender Identity Not on file Sexual Orientation Not on file documented as of this encounter Miscellaneous Notes * Cerner Conversion Note - Historical ProviderMD - 08/20/2021 2:00 AM CDT Gauger Chief Details Entered On: 08/20/2021 3:08 EDT Performed [...] on filedocumented in this encounter Care Teams Sports Apparel Internship Relationship Specialty Start Date End Date Reji Castro MD [address] [place] [id number] PCP - General Adolescent Medicine 10/02/22 documented as of this encounter
--- OUTSIDE RECORDS SUMMARY | 2025-05-30 12:57 | XMS_ITS | Encounter Summary ---
Author Organization [employer] ([place], [place], [place], [place]) Address [address] [place] [address] Care Team Providers Care Supervisor Filter Assembly Name Role Phone Reji Castro MD Primary Care Provider + [phone] Encounter Details Date Type Department Care Team (Late st Contact Info) Description 08/15/2021 Transcribed Document [facility] [place] [facility] [place] [address] ProviderDelvin MD [address] [place] [address] [phone] Social History Tobacco Use Types Packs/Day Years [...] mL - 700 mg, IV Piggyback, Inj, [id number], infuse over 30 Minute(s), Routine Cardiovascular metoprolol [...] PRN for Pain (Severe 7-10), Routine acetaminophen-hydrocodone ([place] 10 mg-325 mg oral tablet) - 1 [...] hrs) Last Charted Minimum Maximum Temp 97.8 ([facility] 09:37) 97.8 ([facility] 09:37) 98.1 ([facility] 06:00) Apical HR 82 ([facility] 20:41) 82 ([facility] 20:41) 82 ([facility] 20:41) Mon HR 82 ([facility] 09:37) 58 ([facility] 22:00) 91 ([facility] 06:00) Resp Rate 17 (AUG 15 09:37) 16 ([facility] 17:21) 18 ([facility] 06:00) SBP 102 ([facility] 09:37) 91 ([facility] 06:00) 108 ([facility] 23 17:21) DBP 61 ([facility] 09:37) L 54 ([facility] 06:00) 76 ([facility] 23 17:21) MAP 81 ([facility] 09:37) 68 ([facility] 03:00) 86 ([facility] 23 17:21) SpO2 94 ([facility] 06:00) L 91 ([facility] 22:00) 97 ([facility] 03:00) General: No acute [...] filedocumented in this encounter Care Teams Supervisor Filter Assembly Relationship Specialty Start Date End Date Reji Castro MD [address] [place] [id number] PCP - General Adolescent Medicine 10/02/22 documented as of this encounter
--- OUTSIDE RECORDS SUMMARY | 2025-05-30 12:57 | XMS_ITS | Encounter Summary ---
Author Organization [employer] ([place], [place], [place], [place]) Address [address] [place] [address] Care Team Providers Care Sales Management Intern Name Role Phone Reji Castro MD Primary Care Provider [phone] Encounter Details Date Type Department Care Team (Late st Contact Info) Description 08/11/2021 Transcribed Document [facility] [place] Family Medicine [address] [place] [address] ProviderDelvin MD [address] [place] [address] Social History Tobacco Use Types Packs/Day [...] filedocumented in this encounter Care Teams Sales Management Intern Relationship Specialty Start Date End Date Reji Castro MD [address] [place] [id number] PCP - General Adolescent Medicine 10/02/22 documented as of this encounter
--- OUTSIDE RECORDS SUMMARY | 2025-05-30 12:57 | XMS_ITS | Encounter Summary ---
Author Organization [employer] ([place], [place], [place], [place]) Address [address] [place] [address] Care Team Providers Care Predator Control Trapper Name Role Phone Reji Castro MD Primary Care Provider + [phone] Encounter Details Date Type Department Care Team (Late st Contact Info) Description 08/26/2021 Transcribed Document [facility] [place] Family Medicine [facility] [place] [address] ProviderDelvin MD [address] [place] [address] [phone] Social History Tobacco Use Types Packs/Day Years Used Date Smoking Tobacco: Never Assessed Comments Unknown Sex and Gender Information Value Date Recorded Sex Assigned at Not on file Legal Sex Female 4:32 PM CDT Gender Identity Not on file Sexual Orientation Not on file documented as of this encounter Miscellaneous Notes * Cerner Conversion Note - Historical ProviderMD - 08/26/2021 2:00 AM CDT Sr Technical Sales Consultant Details Entered On: 08/26/2021 4:16 EDT Performed [...] No Patient Needs Meds Crushed/Liquid : No Paemla Miguel RN - 08/26/2021 4:15 EDT documented in this encounter Plan of Treatment Not on file documented as of this encounter Visit Diagnoses Not on filedocumented in this encounter Care Teams Predator Control Trapper Relationship Specialty Start Date End Date Reji Castro MD [address] [place] [address] PCP - General Adolescent Medicine 10/02/22 documented as of this encounter
--- OUTSIDE RECORDS SUMMARY | 2025-05-30 12:57 | XMS_ITS | Encounter Summary ---
Author Organization [employer] ([place], [place], [place], [place]) Address [address] [place] [address] Care Team Providers Care Supervisor In Charge Name Role Phone Reji Castro MD Primary Care Provider + [phone] Encounter Details Date Type Department Care Team (Late st Contact Info) Description 08/15/2021 Transcribed Document [facility] [place] Family [place] [address] ProviderDelvin MD [address] [place] [address] [phone] Social History Tobacco Use Types Packs/Day Years [...] 56 y/o F presenting to [facility] with history of COPD, atrial fibrillation, CKD [...] mg, 14 mL, 128 mL/Hr, IV Piggyback, [id number]. docusate-senna: 1 Tab, Oral, BID. famotidine: 20 [...] questions. Thank you, Andrea Moraes, PharmD PGY1 Gate Agent Pager: [phone] Ext. [phone] documented in this encounter Plan of Treatment Not on file documented as of this encounter Visit Diagnoses Not on filedocumented in this encounter Care Teams Supervisor In Charge Relationship Specialty Start Date End Date Reji Castro MD [address] [place] [phone] PCP - General Adolescent Medicine 10/02/22 documented as of this encounter
--- OUTSIDE RECORDS SUMMARY | 2025-05-30 12:57 | XMS_ITS | Encounter Summary ---
Author Organization [email or web address] ([place], [place], [place], [place]) Address [address] [place] [address] Care Team Providers Care Assistant Passenger Locomotive Engineer Name Role Phone Reji Castro MD Primary Care Provider + [phone] Encounter Details Date Type Department Care Team (Late st Contact Info) Description 08/15/2021 Transcribed Document [facility] [place] Family Medicine [address] [place] [address] ProviderDelvin MD [address] [place] [address] [phone] Social History Tobacco Use Types Packs/Day Years [...] - 08/15/2021 18:10 EDT Electronically signed by Stevie [facility] Conversion Director Of Professional Services Cerner at 03/09/2023 8:38 PM CDT documented in this encounter Plan of Treatment Not on file documented as of this encounter Visit Diagnoses Not on filedocumented in this encounter Care Teams Assistant Passenger Locomotive Engineer Relationship Specialty Start Date End Date Reji Castro MD [address] [place] [address] PCP - General Adolescent Medicine 10/02/22 documented as of this encounter
--- OUTSIDE RECORDS SUMMARY | 2025-05-30 12:57 | XMS_ITS | Encounter Summary ---
Author Organization [employer] ([place], [place], [place], [place]) Address [address] [place] [address] Care Team Providers Care Court Orderly Name Role Phone Reji Castro MD Primary Care Provider + [phone] Encounter Details Date Type Department Care Team (Late st Contact Info) Description 08/15/2021 Transcribed Document [facility] [place] Family Medicine [address] [place] [address] ProviderDelvin MD [address] [place] [address] [phone] Social History Tobacco Use Types Packs/Day Years [...] On: 08/15/2021 10:34 EDT by JULIO STEWART RN-Garment Examiner ED Care Management Progress Note Discharge Arrangements [...] : Clinical Condition of Patient JULIO STEWART, RN-Garment Examiner ED - 08/18/2021 10:34 EDT Narrative Progress [...] and send referrals as appropriate. JULIO STEWART, RN-Garment Examiner ED - 08/18/2021 10:34 EDT Electronically signed by Lanny [facility] Conversion Gas Distribution And Emergency Clerk Cerner at 03/09/2023 8:33 PM CDT documented in this encounter Plan of Treatment Not on file documented as of this encounter Visit Diagnoses Not on filedocumented in this encounter Care Teams Court Orderly Relationship Specialty Start Date End Date Reji Castro MD [address] [place] [address] PCP - General Adolescent Medicine 10/02/22 documented as of this encounter
--- OUTSIDE RECORDS SUMMARY | 2025-05-30 12:57 | XMS_ITS | Encounter Summary ---
Author Organization [employer] ([place], [place], [place], [place]) Address [address] [place] [address] Care Team Providers Care Ebay Reseller Name Role Phone Reji Castro MD Primary Care Provider + [phone] Encounter Details Date Type Department Care Team (Late st Contact Info) Description 08/15/2021 Transcribed Document [facility] [place] [address] ProviderDelvin MD [address] [place] [address] [phone] Social History Tobacco Use Types Packs/Day Years [...] on filedocumented in this encounter Care Teams Ebay Reseller Relationship Specialty Start Date End Date Reji Castro MD [address] [place] [id number] PCP - General Adolescent Medicine 10/02/22 documented as of this encounter
--- OUTSIDE RECORDS SUMMARY | 2025-05-30 12:57 | XMS_ITS | Encounter Summary ---
Author Organization [employer] ([place], [place], [place], [place]) Address [address] [place] [address] Care Team Providers Care Database Marketing Analyst Name Role Phone Reji Castro MD Primary Care Provider + [phone] Encounter Details Date Type Department Care Team (Late st Contact Info) Description 08/20/[address] [facility] [place] Family Medicine [facility] [place] [address] ProviderDelvin MD [address] [place] [address] [phone] Social History Tobacco Use Types Packs/Day Years [...] On: 08/20/2021 5:00 EDT by Eula Tinoco, Gang Punch Operator-Health Unit Coord Height and Weight, Routine Routine Weight Source : Standing scale Routine Weight Entry Format : [place] Routine Weight, Pounds : 204 lb Routine Weight, Ounces : 7 oz Routine Weight Calculation : 92.93 kg Height Source : Stated Height Entry Format : [place] Height, Feet : 5 ft Height, Inches : 4 Inch Clinical Height : 162.56 cm Body Surface Area (BSA), Routine : 1.98 m2 Body Mass Index (BMI), Routine : 35.17 kg/m2 Eula Tinoco, Gang Punch Operator-Health Unit [facility] - 08/20/2021 6:41 EDT Electronically signed by Lanny, [facility] Conversion Windlasser Cerner at 03/09/2023 8:44 PM CDT documented in this encounter Plan of Treatment Not on file documented as of this encounter Visit Diagnoses Not on filedocumented in this encounter Care Teams Database Marketing Analyst Relationship Specialty Start Date End Date Reji Castro MD [address] [place] [id number] PCP - General Adolescent Medicine 10/02/22 documented as of this encounter
--- OUTSIDE RECORDS SUMMARY | 2025-05-30 12:57 | XMS_ITS | Encounter Summary ---
Author Organization [employer] ([place], [place], [place], [place]) Address [address] [place] [address] Care Team Providers Care Computer Technical Support Specialist Name Role Phone Reji Castro MD Primary Care Provider + [phone] Encounter Details Date Type Department Care Team (Late st Contact Info) Description 08/11/2021 Transcribed Document [facility] [place] [facility] [place] [address] ProviderDelvin MD [address] [place] [address] [phone] Social History Tobacco Use Types Packs/Day Years [...] 08/11/2021 22:44 EDT Electronically signed by Lanny [facility] Conversion Senior Living Advisor Cerner at 03/09/2023 8:55 PM CDT documented in this encounter Plan of Treatment Not on file documented as of this encounter Visit Diagnoses Not on filedocumented in this encounter Care Teams Computer Technical Support Specialist Relationship Specialty Start Date End Date Reji Castro MD [address] [place] [id number] PCP - General Adolescent Medicine 10/02/22 documented as of this encounter
--- OUTSIDE RECORDS SUMMARY | 2025-05-30 12:57 | XMS_ITS | Encounter Summary ---
Author Organization [employer] ([place], [place], [place], [place]) Address [address] [place] [address] Care Team Providers Care Head Nurse Name Role Phone Reji Castro MD Primary Care Provider + [phone] Encounter Details Date Type Department Care Team (Late st Contact Info) Description 08/11/2021 Transcribed Document [facility] [place] Family Medicine [address] [place] [address] ProviderDelvin MD [address] [place] [address] [phone] Social History Tobacco Use Types Packs/Day Years [...] past, CAD, mitral valve replacement presents to [facility] emergency department in [place] after being told by outside provider that [...] fibrillation 5. Diabetes mellitus type II 6. terminal gauger current use of anticoagulant At risk for [...] # 0.76 K/uL (Low) 08/11/2021 17:59 EDT [place] % 8.9 % 08/11/2021 17:59 EDT [place] # 0.61 K/uL 08/11/2021 17:59 EDT Eos [...] Appearance CLEAR2 08/11/2021 17:59 EDT Urine Specific [place] 1.007 08/11/2021 17:59 EDT Urine pH Dipstick [...] Full Code, Continuous Order Electronically signed by [facility] Conversion Ladle Pourer Cerner at 03/09/2023 8:40 PM CDT documented in this encounter Plan of Treatment Not on file documented as of this encounter Visit Diagnoses Not on filedocumented in this encounter Care Teams Head Nurse Relationship Specialty Start Date End Date Reji Castro MD [address] [place] [id number] PCP - General Adolescent Medicine 10/02/22 documented as of this encounter
--- OUTSIDE RECORDS SUMMARY | 2025-05-30 12:57 | XMS_ITS | Encounter Summary ---
Author Organization [employer] ([place], [place], [place], [place]) Address [address] [place] [address] Care Team Providers Care Customs Compliance Director Name Role Phone Reji Castro MD Primary Care Provider + [phone] Encounter Details Date Type Department Care Team (Late st Contact Info) Description 08/11/2021 Transcribed Document [facility] [place] Family Medicine [address] [place] [address] ProviderDelvin MD [address] [place], [place] [phone] Social History Tobacco Use Types Packs/Day Years [...] : Low risk (0) [place] Interventions : [place] precautions for safety used MARIPOSA JACQUES RN - 08/11/2021 18:46 EDT documented in this encounter Plan of Treatment Not on file documented as of this encounter Visit Diagnoses Not on filedocumented in this encounter Care Teams Customs Compliance Director Relationship Specialty Start Date End Date Reji Castro MD [address] [place] [id number] PCP - General Adolescent Medicine 10/02/22 documented as of this encounter
--- OUTSIDE RECORDS SUMMARY | 2025-05-30 12:57 | XMS_ITS | Encounter Summary ---
Author Organization [employer] ([place], [place], [place], [place]) Address [address] [place] [address] Care Team Providers Care Rn Plastic Surgery Name Role Phone Reji Castro MD Primary Care Provider + [phone] Encounter Details Date Type Department Care Team (Late st Contact Info) Description 08/15/2021 Transcribed Document [facility] [place] Family [place] [facility] [place] [address] ProviderDelvin MD [address] [place] [address] [phone] Social History Tobacco Use Types Packs/Day Years [...] her port could not be accessed. Her wort extractor aspirated fluid from the port that was evidently purulent. I have not yet been able to track down that culture. After the aspiration she developed fever to 103, severe CHEUNG, myalgias and arthralgias. She was admitted to [facility]. She was in the hospital [...] subsequently contacted and told to report to [facility] because she had + blood cutures concerning for an infected portacath +/- PVE. 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 Review of Systems ROS reviewed as documented in chart Health Status Current medications: (Selected) Inpatient Medications Ordered ALPRAZolam: 0.5 mg, Oral, TID, PRN: Anxiety CeleXA: 40 mg, Oral, Daily Coumadin: 6 mg, Oral, Daily Coumadin: 7.5 mg, Oral, Daily DAPTOmycin + Sodium Chloride 0.9% intravenous solution 50 mL: 700 mg, 14 mL, 128 mL/Hr, IV Piggyback, [id number] Dextrose 50% injection: 12.5 Gram, IV Push, Q15Min, PRN: Other (See Comment) Dextrose 50% injection: 25 Gram, IV Push, Q15Min, PRN: Other (See Comment) Dextrose 50% injection: 25 Gram, IV Push, Q15Min, PRN: Other (See Comment) Dextrose 50% injection: 25 Gram, IV Push, Q15Min, PRN: Other (See Comment) Lactated Ringers Injection intravenous solution 1,000 mL: 20 mL/Hr, IntraVENous [place] 10 mg-325 mg oral tablet: 1 Tab, [...] tenderness, No swelling, No deformity. Integumentary: Warm, [place]. Neurologic: Alert, Oriented, No focal deficits. Psychiatric: [...] of paula cath Electronically signed by Lanny [facility] Conversion Engineering Programmer Cerner at 03/09/2023 8:49 PM CDT documented in this encounter Plan of Treatment Not on file documented as of this encounter Visit Diagnoses Not on filedocumented in this encounter Care Teams Rn Plastic Surgery Relationship Specialty Start Date End Date Reji Castro MD [address] [place] [id number] PCP - General Adolescent Medicine 10/02/22 documented as of this encounter
--- OUTSIDE RECORDS SUMMARY | 2025-05-30 12:57 | XMS_ITS | Encounter Summary ---
Author Organization [employer] ([place], [place], [place], [place]) Address [address] [place] [address] Care Team Providers Care Movie Stunt Performer Name Role Phone Reji Castro MD Primary Care Provider [phone] Encounter Details Date Type Department Care Team (Late st Contact Info) Description 08/20/2021 Transcribed Document [facility] Radiology [address] [place] [address] Loren Solorzano MD [address] [place] [address] [place] [address] Social History Tobacco Use Types Packs/Day Years [...] cefTRIAXone: 2 Gram, 100 mL/Hr, IV Piggyback, [id number] diphenhydrAMINE: 25 mg, Oral, Q6H, PRN: Itching [...] Oral, BID cefTRIAXone 2 Gram, IV Piggyback, [id number] citalopram 20 mg tab 40 mg 2 [...] Bioprosthetic mitral valve replacement / SNOMED CT 942578361 / Confirmed Chronic kidney disease / SNOMED CT 7995256884 / Confirmed COPD - Chronic obstructive pulmonary disease / SNOMED CT 238400176 / Confirmed History of obstructive sleep apnea / IMO [id number] / Confirmed HLD - Hyperlipidemia / SNOMED CT 328631143 / Confirmed HTN - Hypertension / SNOMED CT 3290541653 / Confirmed Canceled: Atrial fibrillation / SNOMED CT 01026107, Active Problems (25) AIHA (autoimmune hemolytic anemia) [...] 25.9 \ Radiology Results (Last 48 hours) [id number] -- 08/11/2021 21:21 CR Fluoro in OR (08/19/2021 08:15) Result: FLUOROSCOPY IN THE ORHISTORY: Staph infection.FINDINGS: Fluoroscopy was provided by the radiology department [id number] placement. 1 spot film was submittedFLUOROSCOPY TIME: [...] Medications: cefTRIAXone 2 Gram, IV Piggyback, Inj, [id number], infuse over 30 Minute(s), Routine, Start 08/20/21 [...] Hold home meds SSI #Depression Celexa #Pain [place] 10 mg every 6 hours as needed Dispo: Given patient with history of multiple transfusion we will keep patient in the hospital on heparin drip and Coumadin till INR therapeutic need IV abx, at least until 09/08. Discussed with family independence case manager. Time spent 25 minutes documented in this encounter Plan of Treatment Not on file documented as of this encounter Visit Diagnoses Not on filedocumented in this encounter Care Teams Movie Stunt Performer Relationship Specialty Start Date End Date Reji Castro MD [address] [place] [id number] PCP - General Adolescent Medicine 10/02/22 documented as of this encounter
--- OUTSIDE RECORDS SUMMARY | 2025-05-30 12:57 | XMS_ITS | Encounter Summary ---
Author Organization [employer] ([place], [place], [place], [place]) Address [address] [place] [address] Care Team Providers Care Steam Cleaning Machine Operator Name Role Phone Reji Castro MD Primary Care Provider + [phone] Encounter Details Date Type Department Care Team (Late st Contact Info) Description 08/11/2021 Transcribed Document [facility] [place] [facility] [place] [address] ProviderDelvin MD [address] [place] [address] [phone] Social History Tobacco Use Types Packs/Day Years [...] Unaccompanied Legal Guardian : No Support Person/Patient Rubber Goods Finisher : Yes Support Person/Pt Rep Name : [...] 180 units of blood due to [facility], [facility]. Information Obtained From : Patient Primary Language : Guamanian Communication Barrier : None Platform Consultant Needed : No Cherri Webb RN - [...] Scale Risk Level : 0-24 Low Risk Man[place] Fall Interventions : Adequate lighting, Assistive devices [...] Source : Stated Height Entry Format : [place] Height, Feet : 5 ft(Converted to: 152 cm, 60 Inch) Height, Inches : 4 Inch(Converted to: 0 ft 4 Inch, 10.16 cm) Clinical Height : 162.56 cm Weight Source : Standing scale Weight Entry Format : [place] Clinical Dosing Weight : 86.39 kg Weight, Pounds : 190 lb Weight, Ounces : 1 oz Body Surface Area (BSA) : 1.92 m2 Body Mass Index : 32.7 kg/m2 (HI) [place] Body Weight : 54 kg Cherri Webb [...] Cherri Webb RN - 08/11/2021 23:11 EDT [place] Suicide Severity Rating Scale (C-SSRS) CSSRS Past [...] Items : Cell phone, Other: Cell Phone Digital Proofing And Platemaker Personal Items Disposition : Bedside Cherri Webb RN - 08/11/2021 23:11 EDT documented in this encounter Plan of Treatment Not on file documented as of this encounter Visit Diagnoses Not on filedocumented in this encounter Care Teams Steam Cleaning Machine Operator Relationship Specialty Start Date End Date Reji Castro MD [address] [place] [address] PCP - General Adolescent Medicine 10/02/22 documented as of this encounter
--- OUTSIDE RECORDS SUMMARY | 2025-05-30 12:57 | XMS_ITS | Encounter Summary ---
Author Organization [employer] ([place], [place], [place], [place]) Address [address] [place] [address] Care Team Providers Care Decal Cutter Name Role Phone Reji Castro MD Primary Care Provider + [phone] Encounter Details Date Type Department Care Team (Late st Contact Info) Description 08/11/2021 Transcribed Document [facility] [place] [address] [place] [address] ProviderDelvin MD [address] [place] [address] [phone] Social History Tobacco Use Types Packs/Day Years [...] pin. Replacement, mitral valve, with cardiopulmonary bypass (95165). sternotomy. hernia repair, abdominal. sigmoid colon resection. Tendon sheath incision (eg, for trigger finger) (00419). jaw surgery, left. great toe surger, left. [...] % LOW Lymph # 0.76 K/uL LOW Teller % 8.9 % Teller # 0.61 K/uL Eos % 4.4 % Eos # 0.30 Baso % 0.4 % Baso # 0.03 Slide Review No PT 18.9 Second(s) HI INR 1.8 HI PTT 39.6 Second(s) HI Urine Type U CleanCatch Urine Color Yellow Urine Appearance Clear Urine Specific [place] 1.007 Urine pH Dipstick 6.5 Urine Leukocyte Esterase Negative Urine Nitrite Negative Urine Protein Dipstick Negative Urine Glucose Dipstick Negative Urine Ketones Dipstick Negative Urine Urobilinogen Dipstick 0.2 EU/dL Urine Bilirubin Dipstick Negative Urine Blood Dipstick Negative Ur WBC None Seen /HPF Ur Squamous Epithelial Cells 0-2 /HPF . Radiology results: Radiology Results (Last 48 hours) [id number] -- 08/11/2021 16:16 CR Chest 1 Vw [...] understanding of instructions. Electronically signed by Lanny [facility] Conversion Tile Layer Helper Cerner at 03/09/2023 8:55 PM CDT documented in this encounter Plan of Treatment Not on file documented as of this encounter Visit Diagnoses Not on filedocumented in this encounter Care Teams Decal Cutter Relationship Specialty Start Date End Date Reji Castro MD [address] [place] [address] PCP - General Adolescent Medicine 10/02/22 documented as of this encounter
--- OUTSIDE RECORDS SUMMARY | 2025-05-30 12:57 | XMS_ITS | Encounter Summary ---
Author Organization [employer] ([place], [place], [place], [place]) Address [address] [place] [address] Care Team Providers Care Rotary Envelope Machine Operator Name Role Phone Reji Castro MD Primary Care Provider + [phone] Encounter Details Date Type Department Care Team (Late st Contact Info) Description 08/11/2021 Transcribed Document [facility] [place] [facility] [place] [address] ProviderDelvin MD [address] [place] [address] [phone] Social History Tobacco Use Types Packs/Day Years [...] you, Noy Garrett, PharmD PGY-1 Resident Pager #[phone] documented in this encounter Plan of Treatment Not on file documented as of this encounter Visit Diagnoses Not on filedocumented in this encounter Care Teams Rotary Envelope Machine Operator Relationship Specialty Start Date End Date Reji Castro MD [address] [place] [address] PCP - General Adolescent Medicine 10/02/22 documented as of this encounter
--- OUTSIDE RECORDS SUMMARY | 2025-05-30 12:57 | XMS_ITS | Encounter Summary ---
Author Organization [employer] ([place], [place], [place], [place]) Address [address] [place] [address] Care Team Providers Care Magnetic Tape Composer Operator Name Role Phone Reji Castro MD Primary Care Provider + [phone] Encounter Details Date Type Department Care Team (Late st Contact Info) Description 08/11/2021 Transcribed Document [facility] [place] [facility] [place] [address] ProviderDelvin MD [address] [place] [phone] Social History Tobacco Use Types Packs/Day Years [...] Communication Barrier : None Primary Language : Sudanese Any Spiritual/Cultural Needs or Requests : No [...] on filedocumented in this encounter Care Teams Magnetic Tape Composer Operator Relationship Specialty Start Date End Date Reji Castro MD [address] [place] [address] PCP - General Adolescent Medicine 10/02/22 documented as of this encounter
--- OUTSIDE RECORDS SUMMARY | 2025-05-30 12:57 | XMS_ITS | Encounter Summary ---
Author Organization [employer] ([place], [place], [place], [place]) Address [address] [place] [address] Care Team Providers Care Tooth Cutter Contact Wheel Name Role Phone Reji Castro MD Primary Care Provider + [phone] Encounter Details Date Type Department Care Team (Late st Contact Info) Description 08/11/2021 Transcribed Document [facility] [place] [address] [place] [address] ProviderDelvin MD [address] [place] [address] [phone] Social History Tobacco Use Types Packs/Day Years [...] On: 08/11/2021 16:19 EDT by MICHAEL NAM, STAGE DRIVER Triage Across the Room Chief Complaint : Pt presents to the ER reporting she was called for positive blood clutures which showed staph. Pt reports her port is infected. Currently on Omnicef. Pt has a mechanical valve. Has had 180 units of blood due to anemia, ihc is why she has a port. Triage Date/Time : 08/11/2021 16:19 EDT MICHAEL NMA, RN - 08/11/2021 16:19 EDT DCP GENERIC CODE Tracking Acuity : 3 - Urgent Tracking Group : [facility] ED MICHAEL NAM RN - 08/11/2021 [...] 08/11/2021 16:25:12 EDT) Problems(Active) Amblyopia (SNOMED CT :8380917477 ) Name of Problem: Amblyopia ; Recorder: Whitney Razo RN; Confirmation: Confirmed ; Classification: Patient Stated ; Code: [id number] ; Contributor System: PowerChart ; Last Updated: 05/03/2014 19:25 EDT ; Life Cycle Date: 12/02/2013 ; Life Cycle Status: Active ; Vocabulary: SNOMED CT ; Comments: 12/02/2013 0:50 - Whitney Razo RN lazy eye blindness (left eye) Arthritis (SNOMED CT :8193397 ) Name of Problem: Arthritis ; Recorder: Whitney Razo RN; Confirmation: Confirmed ; Classification: Patient Stated ; Code: 7129916 ; Contributor System: PowerChart ; Last Updated: 05/03/2014 19:25 EDT ; Life Cycle Date: 12/02/2013 ; Life Cycle Status: Active ; Vocabulary: SNOMED CT Atrial fibrillation (SNOMED CT :19404870 ) Name of Problem: Atrial fibrillation ; Recorder: Whitney Razo RN; Confirmation: Confirmed ; Classification: Patient Stated ; Code: 85719274 ; Contributor System: PowerChart ; Last Updated: 05/03/2014 19:25 EDT ; Life Cycle Date: 12/02/2013 ; Life Cycle Status: Active ; Vocabulary: SNOMED CT Back pain (PNED :[id number] ) Name of Problem: Back pain ; Recorder: Whitney Razo RN; Confirmation: Confirmed ; Classification: Patient Stated ; Code: [id number] ; Contributor System: PowerChart ; Last Updated: 05/07/2014 9:11 EDT ; Life Cycle Date: 12/02/2013 ; Life Cycle Status: Active ; Vocabulary: PNED Bowel obstruction (SNOMED CT :984417060 ) Name of Problem: Bowel obstruction ; Recorder: Whitney Razo RN; Confirmation: Confirmed ; Classification: Patient Stated ; Code: 901528477 ; Contributor System: PowerChart ; Last Updated: 05/03/2014 19:25 EDT ; Life Cycle Date: 12/02/2013 ; Life Cycle Status: Active ; Vocabulary: SNOMED CT Bronchitis (SNOMED CT :89425084 ) Name of Problem: Bronchitis ; Recorder: Whitney Razo RN; Confirmation: Confirmed ; Classification: Patient Stated ; Code: 54535732 ; Contributor System: PowerChart ; Last Updated: 05/03/2014 19:25 EDT ; Life Cycle Date: 12/02/2013 ; Life Cycle Status: Active ; Vocabulary: SNOMED CT Cardiac arrhythmia (SNOMED CT :1732641910 ) Name of Problem: Cardiac arrhythmia ; Recorder: Whitney Razo RN; Confirmation: Confirmed ; Classification: Patient Stated ; Code: 0656693806 ; Contributor System: PowerChart ; Last Updated: 05/03/2014 19:25 EDT ; Life Cycle Date: 12/02/2013 ; Life Cycle Status: Active ; Vocabulary: SNOMED CT Cardiomyopathy (SNOMED CT :615464009 ) Name of Problem: Cardiomyopathy ; Recorder: Whitney Razo RN; Confirmation: Confirmed ; Classification: Patient Stated ; Code: 364990239 ; Contributor System: PowerChart ; Last Updated: 05/03/2014 19:25 EDT ; Life Cycle Date: 12/02/2013 ; Life Cycle Status: Active ; Vocabulary: SNOMED CT COPD (SNOMED CT :10858966 ) Name of Problem: COPD ; Recorder: Whitney Razo RN; Confirmation: Confirmed ; Classification: Patient Stated ; Code: 71730309 ; Contributor System: PowerChart ; Last Updated: 05/07/2014 9:10 EDT ; Life Cycle Date: 12/02/2013 ; Life Cycle Status: Active ; Vocabulary: SNOMED CT Diabetes mellitus (SNOMED CT :684496351 ) Name of Problem: Diabetes mellitus ; Recorder: Whitney Razo RN; Confirmation: Confirmed ; Classification: Patient Stated ; Code: 480770242 ; Contributor System: PowerChart ; Last Updated: 05/03/2014 19:25 EDT ; Life Cycle Date: 12/02/2013 ; Life Cycle Status: Active ; Vocabulary: SNOMED CT Diabetes mellitus type II (SNOMED CT :05079553 ) Name of Problem: Diabetes mellitus type II ; Recorder: Whitney Razo RN; Confirmation: Confirmed ; Classification: Patient Stated ; Code: 68501739 ; Contributor System: PowerChart ; Last Updated: 05/07/2014 9:12 EDT ; Life Cycle Date: 12/02/2013 ; Life Cycle Status: Active ; Vocabulary: SNOMED CT Diverticulosis (SNOMED CT :2850330821 ) Name of Problem: Diverticulosis ; Recorder: Whitney Razo RN; Confirmation: Confirmed ; Classification: Patient Stated ; Code: 7636515069 ; Contributor System: PowerChart ; Last Updated: 05/03/2014 19:25 EDT ; Life Cycle Date: 12/02/2013 ; Life Cycle Status: Active ; Vocabulary: SNOMED CT Edema (SNOMED CT :175474105 ) Name of Problem: Edema ; Recorder: Whitney Razo RN; Confirmation: Confirmed ; Classification: Patient Stated ; Code: 279139197 ; Contributor System: PowerChart ; Last Updated: 05/03/2014 19:25 EDT ; Life Cycle Date: 12/02/2013 ; Life Cycle Status: Active ; Vocabulary: SNOMED CT ; Comments: 12/02/2013 1:45 - Whitney Razo RN BLE Fibromyalgia (SNOMED CT :09337291 ) Name of Problem: Fibromyalgia ; Recorder: Whitney Razo RN; Confirmation: Confirmed ; Classification: Patient Stated ; Code: 18659041 ; Contributor System: PowerChart ; Last Updated: [...] GERD - Gastro-esophageal reflux disease (SNOMED CT :4530952173 ) Name of Problem: GERD - Gastro-esophageal reflux disease ; Recorder: Whitney Razo RN; Confirmation: Confirmed ; Classification: Patient Stated ; Code: 8001586212 ; Contributor System: PowerChart ; Last Updated: 05/07/2014 9:09 EDT ; Life Cycle Date: 12/02/2013 ; Life Cycle Status: Active ; Vocabulary: SNOMED CT Heart failure (SNOMED CT :274707091 ) Name of Problem: Heart failure ; Recorder: Whitney Razo RN; Confirmation: Confirmed ; Classification: Patient Stated ; Code: 379005482 ; Contributor System: PowerChart ; Last Updated: 05/03/2014 19:25 EDT ; Life Cycle Date: 12/02/2013 ; Life Cycle Status: Active ; Vocabulary: SNOMED CT Heart valve (SNOMED CT :147178484 ) Name of Problem: Heart valve ; Recorder: Whitney Razo RN; Confirmation: Confirmed ; Classification: Patient Stated ; Code: 128808354 ; Contributor System: PowerChart ; Last Updated: 05/07/2014 9:14 EDT ; Life Cycle Date: 12/02/2013 ; Life Cycle Status: Active ; Vocabulary: SNOMED CT Hepatomegaly (SNOMED CT :405840166 ) Name of Problem: Hepatomegaly ; Recorder: Whitney Razo RN; Confirmation: Confirmed ; Classification: Patient Stated ; Code: 852775325 ; Contributor System: PowerChart ; Last Updated: 05/03/2014 19:25 EDT ; Life Cycle Date: 12/02/2013 ; Life Cycle Status: Active ; Vocabulary: SNOMED CT High blood pressure (SNOMED CT :97804375 ) Name of Problem: High blood pressure ; Recorder: Whitney Razo RN; Confirmation: Confirmed ; Classification: Patient Stated ; Code: 80834054 ; Contributor System: PowerChart ; Last Updated: 05/03/2014 19:25 EDT ; Life Cycle Date: 12/02/2013 ; Life Cycle Status: Active ; Vocabulary: SNOMED CT Hyperlipidemia (SNOMED CT :95051637 ) Name of Problem: Hyperlipidemia ; Recorder: Whitney Razo RN; Confirmation: Confirmed ; Classification: Patient Stated ; Code: 51403603 ; Contributor System: PowerChart ; Last Updated: 05/03/2014 19:25 EDT ; Life Cycle Date: 12/02/2013 ; Life Cycle Status: Active ; Vocabulary: SNOMED CT Lazy eye (SNOMED CT :461903775 ) Name of Problem: Lazy eye ; Recorder: Whitney Razo RN; Confirmation: Confirmed ; Classification: Patient Stated ; Code: 188953391 ; Contributor System: PowerChart ; Last Updated: 05/03/2014 19:25 EDT ; Life Cycle Date: 12/02/2013 ; Life Cycle Status: Active ; Vocabulary: SNOMED CT ; Comments: 12/02/2013 0:49 - Whitney Razo RN lazy eye blindness (left eye) Myocardial infarction (SNOMED CT :91817989 ) Name of Problem: Myocardial infarction ; Recorder: Whitney Razo RN; Confirmation: Confirmed ; Classification: Patient Stated ; Code: 63030796 ; Contributor System: PowerChart ; Last Updated: [...] Cycle Status: Active Ovarian cyst (SNOMED CT :982821933 ) Name of Problem: Ovarian cyst ; Recorder: Whitney Razo RN; Confirmation: Confirmed ; Classification: Patient Stated ; Code: 543405593 ; Contributor System: PowerChart ; Last Updated: 05/03/2014 19:25 EDT ; Life Cycle Date: 12/02/2013 ; Life Cycle Status: Active ; Vocabulary: SNOMED CT Renal calculus (SNOMED CT :867639042 ) Name of Problem: Renal calculus ; Recorder: Whitney Razo RN; Confirmation: Confirmed ; Classification: Patient Stated ; Code: 198136888 ; Contributor System: PowerChart ; Last Updated: 05/03/2014 19:25 EDT ; Life Cycle Date: 12/02/2013 ; Life Cycle Status: Active ; Vocabulary: SNOMED CT Restless legs syndrome (SNOMED CT :33865511 ) Name of Problem: Restless legs syndrome ; Recorder: Whitney Razo RN; Confirmation: Confirmed ; Classification: Patient Stated ; Code: 51475200 ; Contributor System: PowerChart ; Last Updated: 05/03/2014 19:25 EDT ; Life Cycle Date: 12/02/2013 ; Life Cycle Status: Active ; Vocabulary: SNOMED CT Thyroid disease (SNOMED CT :119913828 ) Name of Problem: Thyroid disease ; Recorder: Whitney Razo RN; Confirmation: Confirmed ; Classification: Patient Stated ; Code: 025135808 ; Contributor System: 25eight ; Last Updated: 05/03/2014 19:25 EDT ; Life Cycle Date: 12/02/2013 ; Life Cycle Status: Active ; Vocabulary: SNOMED CT Diagnoses(Active) Medical screening exam Date: 08/11/2021 ; Diagnosis Type: Reason For Visit ; Confirmation: Complaint of ; Clinical Dx: Medical screening exam ; Classification: Medical ; Clinical Service: Emergency medicine ; Code: PNED ; Probability: 0 ; Diagnosis Code: [id number] ED Height and Weight Height Source : Stated Height Entry Format : [place] Height, Feet : 5 ft(Converted to: 152 cm, 60 Inch) Height, Inches : 4 Inch(Converted to: 0 ft 4 Inch, 10.16 cm) Clinical Height : 162.56 cm Weight Source, ED : Critical estimated dosing weight Weight Entry Format : [place] Weight, Pounds : 190 lb Clinical Dosing Weight : 86.36 kg Body Surface Area (BSA) : 1.92 m2 Body Mass Index : 32.7 kg/m2 (HI) [place] Body Weight (IBW) : 54.3 kg MICHAEL NAM RN - 08/11/2021 16:19 EDT documented in this encounter Plan of Treatment Not on file documented as of this encounter Visit Diagnoses Not on filedocumented in this encounter Care Teams Tooth Cutter Contact Wheel Relationship Specialty Start Date End Date Reji Castro MD [address] [place] [address] PCP - General Adolescent Medicine 10/02/22 documented as of this encounter
--- OUTSIDE RECORDS SUMMARY | 2025-05-30 12:57 | XMS_ITS | Encounter Summary ---
Author Organization [employer] ([place], [place], [place], [place]) Address [address] [place] [address] Care Team Providers Care Network Security Consultant Name Role Phone Reji Castro MD Primary Care Provider + [phone] Encounter Details Date Type Department Care Team (Late st Contact Info) Description 08/26/2021 Transcribed Document [facility] [place] [facility] [place] [address] ProviderDelvin MD [address] [place] [address] [phone] Social History Tobacco Use Types Packs/Day Years [...] Warfarin HPI: 56 y/o F presenting to [facility] with history of COPD, atrial [...] Daily INR Will follow, Zeyad SnowD, BCPS [phone] Electronically signed by Lanny, [facility] Conversion Equipment Analyst Cerner at 03/09/2023 8:52 PM CDT documented in this encounter Plan of Treatment Not on file documented as of this encounter Visit Diagnoses Not on filedocumented in this encounter Care Teams Network Security Consultant Relationship Specialty Start Date End Date Reji Castro MD [address] [place] [id number] PCP - General Adolescent Medicine 10/02/22 documented as of this encounter
--- OUTSIDE RECORDS SUMMARY | 2025-05-30 12:58 | XMS_ITS | Encounter Summary ---
Author Organization [employer] ([place], [place], [place], [place]) Address [address] [place] [address] Care Team Providers Care Food Service Employee Name Role Phone Reji Castro MD Primary Care Provider + [phone] Encounter Details Date Type Department Care Team (Late st Contact Info) Description 08/12/2021 Transcribed Document [facility] [place] [address] [place] [address] ProviderDelvin MD [address] [place] [address] [phone] Social History Tobacco Use Types Packs/Day Years [...] filedocumented in this encounter Care Teams Food Service Employee Relationship Specialty Start Date End Date Reji Castro MD [address] [place] [address] PCP - General Adolescent Medicine 10/02/22 documented as of this encounter
--- OUTSIDE RECORDS SUMMARY | 2025-05-30 12:58 | XMS_ITS | Encounter Summary ---
Author Organization [employer] ([place], [place], [place], [place]) Address [address] [place] [address] Care Team Providers Care Job Training Specialist Name Role Phone Reji Castro MD Primary Care Provider [phone] Encounter Details Date Type Department Care Team (Late st Contact Info) Description 08/19/2021 Transcribed Document [facility] [place] [address] [place] [address] ProviderDelvin MD [address] [place] [address] [phone] Social History Tobacco Use Types Packs/Day Years [...] WILLIAMS HANEY RN - 08/19/2021 17:42 EDT Electronically signed by [employer] Conversion Psychological Operations Specialist Cerner at 03/09/2023 8:47 PM CDT documented in this encounter Plan of Treatment Not on file documented as of this encounter Visit Diagnoses Not on filedocumented in this encounter Care Teams Job Training Specialist Relationship Specialty Start Date End Date Reji Castro MD [address] [place] [address] PCP - General Adolescent Medicine 10/02/22 documented as of this encounter
--- OUTSIDE RECORDS SUMMARY | 2025-05-30 12:58 | XMS_ITS | Encounter Summary ---
Author Organization [employer] ([place], [place], [place], [place]) Address [address] [place] [address] Care Team Providers Care Affiliate Manager Name Role Phone Reji Castro MD Primary Care Provider + [phone] Encounter Details Date Type Department Care Team (Late st Contact Info) Description 08/11/2021 Transcribed Document [facility] [place] [facility] [place] [address] ProviderDelvin MD [address] [place] [address] [phone] Social History Tobacco Use Types Packs/Day Years [...] - 08/12/2021 9:33 EDT Electronically signed by [facility] Sjh Conversion Continuous Drier Operator Cerner at 03/09/2023 8:39 PM CDT documented in this encounter Plan of Treatment Not on file documented as of this encounter Visit Diagnoses Not on filedocumented in this encounter Care Teams Affiliate Manager Relationship Specialty Start Date End Date Reji Castro MD [address] [place] [address] PCP - General Adolescent Medicine 10/02/22 documented as of this encounter
--- OUTSIDE RECORDS SUMMARY | 2025-05-30 12:58 | XMS_ITS | Encounter Summary ---
Author Organization [employer] ([place], [place], [place], [place]) Address [address] [place] [address] Care Team Providers Care Line Leader Name Role Phone Reji Castro MD Primary Care Provider [phone] Encounter Details Date Type Department Care Team (Late st Contact Info) Description 08/17/2021 Transcribed Document [facility] Radiology [address] [place] [address] Loren Solorzano MD [address] [place] [address] [place] [address] Social History Tobacco Use Types Packs/Day Years [...] mg, 14 mL, 128 mL/Hr, IV Piggyback, [id number] Dextrose 50% injection: 12.5 Gram, IV Push, [...] mL 700 mg 14 mL, IV Piggyback, [id number] famotidine 20 mg tab 20 mg 1 [...] Bioprosthetic mitral valve replacement / SNOMED CT 073917107 / Confirmed Chronic kidney disease / SNOMED CT 1478518073 / Confirmed COPD - Chronic obstructive pulmonary disease / SNOMED CT 752456584 / Confirmed History of obstructive sleep apnea / IMO 98642216 / Confirmed HLD - Hyperlipidemia / SNOMED CT 847193491 / Confirmed HTN - Hypertension / SNOMED CT 3363516660 / Confirmed Canceled: Atrial fibrillation / SNOMED CT 74571594, Active Problems (25) AIHA (autoimmune hemolytic anemia) [...] Hold home meds SSI #Depression Celexa #Pain [place] 10 mg every 6 hours as needed [...] on filedocumented in this encounter Care Teams Line Leader Relationship Specialty Start Date End Date Reji Castro MD [address] [place] [address] PCP - General Adolescent Medicine 10/02/22 documented as of this encounter
--- OUTSIDE RECORDS SUMMARY | 2025-05-30 12:58 | XMS_ITS | Encounter Summary ---
Author Organization [employer] ([place], [place], [place], [place]) Address [address] [place] [address] Care Team Providers Care Vp Project Name Role Phone Reji Castro MD Primary Care Provider [phone] Encounter Details Date Type Department Care Team (Late st Contact Info) Description 08/19/2021 Transcribed Document [facility] Radiology [address] [place] [address] Loren Solorzano MD [address] [place] [address] [place] [address] Social History Tobacco Use Types Packs/Day Years [...] Bioprosthetic mitral valve replacement / SNOMED CT 852920130 / Confirmed Chronic kidney disease / SNOMED CT 6195399357 / Confirmed COPD - Chronic obstructive pulmonary disease / SNOMED CT 920757647 / Confirmed History of obstructive sleep apnea / IMO 17371782 / Confirmed HLD - Hyperlipidemia / SNOMED CT 405947091 / Confirmed HTN - Hypertension / SNOMED CT 8914048471 / Confirmed Canceled: Atrial fibrillation / SNOMED CT 48182164, Active Problems (25) AIHA (autoimmune hemolytic anemia) [...] hrs) Last Charted Minimum Maximum Temp 99.1 ([facility] 06:30) 98 ([facility] 00:00) 99.1 ([facility] 06:30) Apical HR 87 ([facility] 20:53) 87 ([facility] 20:53) 87 ([facility] 20:53) Mon HR 81 ([facility] 06[facility]30) 72 ([facility] 21:00) 87 ([facility] 15:27) Resp Rate 18 ([facility] 06:30) 16 ([facility] 00:00) 20 ([facility] 18:17) SBP 117 ([facility] 06:30) 94 ([facility] 21:00) 120 ([facility] 18:17) DBP 67 ([facility] 06:30) L 55 ([facility] 21:00) 67 ([facility] 06:30) MAP 85 ([facility] 06:30) 67 ([facility] 21:00) 87 (AUG 18 18:17) SpO2 98 [...] data available Radiology Results (Last 48 hours) [id number] -- 08/11/2021 21:21 CR Chest 1 Vw [...] Hold home meds SSI #Depression Celexa #Pain [place] 10 mg every 6 hours as needed [...] filedocumented in this encounter Care Teams Vp Project Relationship Specialty Start Date End Date Reji Castro MD [address] [place] [address] PCP - General Adolescent Medicine 10/02/22 documented as of this encounter
--- OUTSIDE RECORDS SUMMARY | 2025-05-30 12:58 | XMS_ITS | Encounter Summary ---
Author Organization [employer] ([place], [place], [place], [place]) Address [address] [place] [address] Care Team Providers Care Testing Specialist Name Role Phone Reji Castro MD Primary Care Provider + [phone] Encounter Details Date Type Department Care Team (Late st Contact Info) Description 08/16/2021 Transcribed Document [facility] Family Medicine [facility] [place] [address] ProviderDelvin MD [address] [place] [address] Social History Tobacco Use Types Packs/Day [...] Historical ProviderMD - 08/16/2021 2:00 AM CDT Csm Consultant Details Entered On: 08/16/2021 2:41 EDT Performed [...] on filedocumented in this encounter Care Teams Testing Specialist Relationship Specialty Start Date End Date Reji Castro MD [address] [place] [address] PCP - General Adolescent Medicine 10/02/22 documented as of this encounter
--- OUTSIDE RECORDS SUMMARY | 2025-05-30 12:58 | XMS_ITS | Encounter Summary ---
Author Organization [employer] ([place], [place], [place], [place]) Address [address] [place] [address] Care Team Providers Care Derivatives Trader Name Role Phone Reji Castro MD Primary Care Provider + [phone] Encounter Details Date Type Department Care Team (Late st Contact Info) Description 08/14/2021 Transcribed Document [facility] [place] [address] ProviderDelvin MD [address] [place] [phone] Social History Tobacco Use Types Packs/Day Years [...] mg, 14 mL, 128 mL/Hr, IV Piggyback, [id number]. docusate-senna: 1 Tab, Oral, BID. famotidine: 20 [...] Encounter/Past 24 Hours) Creatinine Level 1.80 mg/dL [place] 08/14/2021 07:29 Bun/Creatinine 19.4 08/14/2021 00:14 Estimated [...] questions. Thank you, Andrea Moraes, PharmD PGY1 Boring Mill Set Up Operator Vertical Pager: [phone], Ext. [phone] Electronically signed by Lanny, [facility] Conversion Outside Property Agent Cerner at 03/09/2023 8:49 PM CDT documented in this encounter Plan of Treatment Not on file documented as of this encounter Visit Diagnoses Not on filedocumented in this encounter Care Teams Derivatives Trader Relationship Specialty Start Date End Date Reji Castro MD [address] [place] [address] PCP - General Adolescent Medicine 10/02/22 documented as of this encounter
--- OUTSIDE RECORDS SUMMARY | 2025-05-30 12:58 | XMS_ITS | Encounter Summary ---
Author Organization [employer] ([place], [place], [place], [place]) Address [address] [place] [address] Care Team Providers Care Jewish Thought Professor Name Role Phone Reji Castro MD Primary Care Provider + [phone] Encounter Details Date Type Department Care Team (Late st Contact Info) Description 08/19/2021 Transcribed Document [facility] [place] [address] [place] [address] ProviderDelvin MD [address] [place] [id number] Social History Tobacco Use Types Packs/Day Years Used Date Smoking Tobacco: Never Assessed Comments Unknown Sex and Gender Information Value Date Recorded Sex Assigned at Not on file Legal Sex Female 4:32 PM CDT Gender Identity Not on file Sexual Orientation Not on file documented as of this encounter Miscellaneous Notes * [employer]ner Conversion Note - Delvin ProviderMD - 08/19/2021 7:51 AM CDT [facility] Main OR IntraOp Summary Primary Physician: NENA PEARSON MD-TATYANA Finalized Date/Time: 08/20/21 09:11:26 Pt. Name: TAMAYO IRINAMARCIO GhoshO.B./Sex: 1965 Female Med Rec #: [id number] Physician: VINCE BELLO MD Financial #: [id number] Pt. Type: I Room/Bed: [facility]/ Admit/Disch: 08/11/21 21:21:00 - Institution: [facility] IntraOp Case Attendance Entry 1 Entry 2 Entry 3 Case Attendee NENA PEARSON MD-ERNESTO FISCHER APRN, BURBERRY, KEITH MD-ANS PAPERHANGER Role Performed Surgeon/Proceduralist, PAPERHANGER/Nurse Shipyard Painter Helper Anesthesiologist of First Record Time In 08/19/21 [...] YULIA JIM, SCRUB Josh Rivera, ALICIA SOTELO, LOCOMOTIVE MECHANIC APPRENTICE/CSA TECH Role Performed Knitting Machine Operator Helper, First Lithographic Press Operator, First Scrub, First Time In 08/19/21 07:29:00 08/19/21 07:29:00 08/19/21 07:29:00 Time Out 08/19/21 08:24:00 08/19/21 08:24:00 08/19/21 08:24:00 Procedure Vascular Access Vascular Access Vascular Access Insertion Insertion Insertion Other Attendee Superficial Wound Closed By: Last Modified By: Josh Rivera RN Pantano, Scott, Josh Perez, JEREMIAH 08/19/21 08:35:46 08/19/21 08:35:46 08/19/21 08:35:46 Entry 7 Case Attendee David Greene, Freight Sales Broker Role Performed Digital Photographic Printer Time In 08/19/21 07:55:00 Time Out 08/19/21 08:07:00 Procedure Vascular Access Insertion Other Attendee Superficial Wound Closed By: Last Modified By: Josh Rivera RN 08/19/21 08:35:46 [facility] IntraOp Case Attendance Audit 08/19/21 08:35:46 Psych Tech: JAZLYN Modifier: JAZLYN 1 <+> Time Out [...] <*> Procedure Vascular Access Insertion 08/19/21 08:07:27 Psych Tech: JAZLYN Modifier: PANTANOS 1 <*> Procedure Vascular Access Insertion 2 <*> Procedure Vascular Access Insertion 3 <*> Procedure Vascular Access Insertion 4 <*> Procedure Vascular Access Insertion 5 <*> Procedure Vascular Access Insertion 6 <*> Procedure Vascular Access Insertion 7 <+> Time In 7 <+> Time Out 7 <*> Procedure Vascular Access Insertion 08/19/21 08:04:07 Psych Tech: JAZLYN Modifier: PANTANOS <+> 7 Case Attendee <+> 7 Role Performed <+> 7 Procedure 08/19/21 08:00:27 Psych Tech: JAZLYN Modifier: MAKENNAANOS 1 <*> Procedure Vascular Access Insertion 2 <*> Procedure Vascular Access Insertion 3 <*> Procedure Vascular Access Insertion 4 <+> Time In 4 <*> Procedure Vascular Access Insertion 5 <+> Time In 5 <*> Procedure Vascular Access Insertion 6 <+> Time In 6 <*> Procedure Vascular Access Insertion 08/19/21 07:52:21 Psych Tech: JAZLYN Modifier: PANTANOS <+> 1 Procedure 2 <+> Time In 2 <*> Procedure Vascular Access Insertion 3 <+> Time In 3 <*> Procedure Vascular Access Insertion <+> 4 Case Attendee <+> 4 Role Performed <+> 4 Procedure <+> 5 Case Attendee <+> 5 Role Performed <+> 5 Procedure <+> 6 Case Attendee <+> 6 Role Performed <+> 6 Procedure [facility] IntraOp Case Times Entry 1 Patient In Room Time 08/19/21 07:29:00 Out Room Time 08/19/21 08:24:00 Anesthesia Start Time 08/19/21 07:29:00 Stop Time 08/19/21 08:24:00 Surgery / Procedure Times Start Time 08/19/21 07:51:00 Stop Time 08/19/21 08:17:00 Last Modified By: Josh Rivera RN 08/19/21 08:24:22 [facility] IntraOp Case Times Audit 08/19/21 08:24:22 Psych Tech: JAZLYN Modifier: MAKENNAANOS <+> 1 Out Room Time <+> 1 Stop Time <+> 1 Stop Time 08/19/21 07:51:02 Psych Tech: JAZLYN Modifier: JUDITHS <+> 1 Start Time [facility] IntraOp Cautery Entry 1 ESU Identification Cautery Type Monopolar ESU ID Number [id number] ID Type Hospital Number Cautery Settings Cut Setting 30 Coag Setting 30 ESU Grounding Pad Ground Pad Type Adult Grounding Pad Site Right Buttock Grounding Pad Josh Rivera RN Applied By Grounding Pad Site Intact Skin Condition Before Cautery Grounding Pad Site Intact Skin Condition After Cautery Last Modified By: Josh Rivera RN 08/19/21 07:52:52 [facility] IntraOp Communication Entry 1 Communication To Family/Significant other Communication By Josh Rivera RN Last Modified By: Josh Rivera RN 08/19/21 07:58:45 [facility] IntraOp Counts Verification Entry 1 Procedure Vascular Access Insertion Count Info Count Type Sponge, Sharps, Miscellaneous Counts Verification Baseline/pre-procedure Sequence Count Results Correct, surgeon notified Counts Performed By Count Performed By ALIICA MACIAS SCRUB (Scrub) TECH Count Performed By Josh Rivera RN (RN) Last Modified By: Josh Rivera RN 08/19/21 07:53:18 [facility] IntraOp Counts Final Entry 1 Procedure Vascular Access Insertion Final Count Info Count Type Sponge, Sharps, Miscellaneous Counts Verification Skin Closure/end of Sequence procedure Count Results Correct, surgeon notified Counts Performed By Count Performed By ALICIA MACIAS SCRUB (Scrub) TECH Count Performed By Josh Rivera RN (RN) Last Modified By: Josh Rivera RN 08/19/21 07:53:41 [facility] IntraOp Departure from OR Entry 1 Integumentary Assessment Integumentary WDL Assessment WDL Transfer/Handoff Transfer to Nursing unit Handoff Method Bedside/Face to face, Online nursing summary Post-op Transport Stretcher/Gubookerney Via Patient Transport ERNESTO SOUSA APRN, Accompanied by PAPERHANGER Last Modified By: Josh Rivera RN 08/19/21 08:02:48 [facility] IntraOp Departure from OR Audit 08/19/21 08:02:48 Psych Tech: JAZLYN Modifier: JAZLYN 1 <*> Transfer to Ambulatory unit, Phase II 1 <+> Patient Transport Accompanied by [facility] IntraOp Dressing and Packing Entry 1 Type Dressing Location OPSITE Wound Dressing Item Skin Closure Glue Applied By YULIA JIM SCRUB TECH/OCTAVIO Last Modified By: Josh Rivera RN 08/19/21 07:54:28 [facility] IntraOp Fire Risk Assessment Entry 1 [...] Yes Safety Precautions Followed Last Modified By: oJsh Rivera RN 08/19/21 07:53:55 [facility] Intra General Case Textile Worker 1 Case Information OR OR 06 [facility] Case Level 1 Room Verified Yes Wound Class I - Clean Specialty General ASA Class 4 Diagnosis Preop Diagnosis IV Access Postop Same As Preop Yes Postop Diagnosis IV Access Last Modified By: Josh Rivera RN 08/19/21 07:58:27 [facility] IntraOp Intraoperative Assessment Entry 1 Handoff [...] Modified By: Josh Rivera RN 08/19/21 07:59:09 [facility] IntraOp Intraoperative Equipment Entry 1 Type Monitoring Equipment Intraop Monitoring Electrocardiogram Three lead placement (ECG) Electrode Placement Blood Pressure Non-Invasive BP Device Source Blood Pressure Arm, right upper Location Pulse Oximeter Hand, left Probe Site Antiembolic Devices Scopes Photo/Video Documentation Last Modified By: Josh Rivera RN 08/19/21 07:59:29 [facility] IntraOp Medication Admin Entry 1 Entry 2 Medication/Irrigant LIDOCAINE 1% WITH EPI Heplock 100units/ml 5ml 1:100,000 vial - [id number] Combo Med List Time Administered 08/19/21 07:59:00 08/19/21 07:59:00 Route of LOCAL HEP LOCK Administration Dose Dose 30 10 Unit of Measure ml ml Volume Administered By NENA PEARSON MD-SUR HARRIS, JOHN M, MD-SUR Procedure Irrigation Irrigant Volume In Irrigant Volume Out Last Modified By: Josh Rivera RN Pantano, Scott, RN 08/19/21 08:00:16 08/19/21 08:00:16 [facility] IntraOp Patient Positioning Entry 1 Procedure [...] By NENA PEARSON MD-SUR, ERNESTO SOUSA, SINDHU, PAPERHANGER, Josh Rivera RN Position Verified Positioning Yes Verified by Anesthesia Positioning Yes Verified by Surgeon Last Modified By: Josh Rivera RN 08/19/21 07:54:11 [facility] IntraOp Sign In Entry 1 Patient, [...] Modified By: Josh Rivera RN 08/19/21 08:00:24 [facility] IntraOp Sign Out Entry 1 RN [...] Modified By: Josh Rivera RN 08/19/21 08:35:34 [facility] IntraOp Sign Out Audit 08/19/21 08:35:34 Psych Tech: JUDITHKe Modifier: PANTANOS <+> 1 RN Sign Out Signature <+> 1 RN Sign Out Signature Date/Time <+> 1 Urinary Catheter Documented in IView [facility] IntraOp Skin Prep Entry 1 Procedure Vascular Access Insertion Prescribed N/A Pre-Surgical Prep Completed Prep Area CHIN THRU CHEST INCLUDE BILATERAL SHOULDERS Intraop Prep Prep Agents Chloraprep Hair Removal Last Modified By: Josh Rivera RN 08/19/21 07:58:31 [facility] IntraOp Surgical Procedures Entry 1 Procedure Vascular Access Insertion Additional (PORT A CATH PLACEMENT) Procedure Description Primary Procedure Yes Primary Surgeon NENA PEARSON MD-TATYANA Start 08/19/21 07:51:00 Stop 08/19/21 08:17:00 Anesthesia Type MAC Specialty General Wound Class I - Clean Last Modified By: Josh Rivera RN 08/19/21 08:35:09 [facility] IntraOp Surgical Procedures Audit 08/19/21 08:35:09 Psych Tech: JAZLYN Modifier: MAKENNAANOS <+> 1 Stop [facility] IntraOp Temp Regulation Devices Entry 1 Temp Regulation Temperature Warm blankets Regulation Device Temperature Full body Regulation Site Temperature ERNESTO SOUSA APRN, Regulation Device PAPERHANGER Applied by Last Modified By: Josh Rivera RN 08/19/21 07:54:19 [facility] IntraOP Time Out Entry 1 Procedure [...] Modified By: Josh Rivera RN 08/19/21 08:02:27 [facility] IntraOP Time Out Audit 08/19/21 08:02:27 Psych Tech: JAZLYN Modifier: PANTANOS 1 <+> Beta Alessandra Administered 1 <*> Procedure to be Performed Vascular Access Insertion 08/19/21 08:00:58 Psych Tech: JAZLYN Modifier: PANTANOS 1 <+> All activity [...] <+> Team Verbally Confirms Information 08/19/21 08:00:32 Psych Tech: JAZLYN Modifier: PANTANOS <+> 1 Procedure to be Performed [facility] IntraOp X-Ray and Images Entry 1 X-Ray/Imaging Type Fluoroscopy Fluoroscopy Type C-Arm Site CHEST Principal Process Engineer Name David Greene, Freight Sales Broker Protective Devices Yes Used Last Modified By: Josh Rivera RN 08/19/21 08:04:48 Case Comments <None> Finalized By: WILNER DUPONT Document Signatures Signed By: Josh Rivera RN 08/19/21 08:35 WILNER DUPONT 08/20/21 09:11 Unfinalized History Date/Time Username Reason for Unfinalizing Freetext Reason for Unfinalizing 08/20/21 09:10 WATTORSTEN Correct Billing Electronically signed by [facility] Conversion News Agent Cerner at 03/09/2023 8:49 PM CDT documented in this encounter Plan of Treatment Not on file documented as of this encounter Visit Diagnoses Not on filedocumented in this encounter Care Teams Jewish Thought Professor Relationship Specialty Start Date End Date Reji Castro MD [address] [place] [id number] PCP - General Adolescent Medicine 10/02/22 documented as of this encounter
--- OUTSIDE RECORDS SUMMARY | 2025-05-30 12:58 | XMS_ITS | Encounter Summary ---
Author Organization [email or web address] ([place], [place], [place], [place]) Address [address] [place] [address] Care Team Providers Care Pyrotechnics Press Tender Name Role Phone Reji Castro MD Primary Care Provider + [phone] Encounter Details Date Type Department Care Team (Late st Contact Info) Description 08/25/2021 Transcribed Document [facility] Family [place] [facility] [place] [address] ProviderDelvin MD [address] [place] [phone] Social History Tobacco Use Types Packs/Day Years [...] 56 y/o F presenting to [facility] with history of COPD, atrial fibrillation, [...] cefTRIAXone: 2 Gram, 100 mL/Hr, IV Piggyback, [id number]. citalopram: 40 mg, Oral, Daily. diphenhydrAMINE: 25 [...] floor. Thank you, Andrea Moraes, PharmD PGY1 Filling Station Equipment Mechanic Pager: [phone], Ext. [phone] Electronically signed by Lanny [facility] Conversion Road Hogger Operator Cerner at 03/09/2023 8:52 PM CDT documented in this encounter Plan of Treatment Not on file documented as of this encounter Visit Diagnoses Not on filedocumented in this encounter Care Teams Pyrotechnics Press Tender Relationship Specialty Start Date End Date Reji Castro MD [address] [place] [address] PCP - General Adolescent Medicine 10/02/22 documented as of this encounter
--- OUTSIDE RECORDS SUMMARY | 2025-05-30 12:58 | XMS_ITS | Encounter Summary ---
Author Organization [employer] ([place], [place], [place], [place]) Address [address] [place] [address] Care Team Providers Care Residential Support Worker Name Role Phone Reji Castro MD Primary Care Provider + [phone] Encounter Details Date Type Department Care Team (Late st Contact Info) Description 08/14/2021 Transcribed Document [facility] [place] [facility] [place] [address] ProviderDelvin MD [address] [place] [id number] Social History Tobacco Use Types Packs/Day Years Used Date Smoking Tobacco: Never Assessed Comments Unknown Sex and Gender Information Value Date Recorded Sex Assigned at Not on file Legal Sex Female 4:32 PM CDT Gender Identity Not on file Sexual Orientation Not on file documented as of this encounter Miscellaneous Notes * Cerner Conversion Note - Historical ProviderMD - 08/14/2021 2:00 AM CDT Geology Technician Details Entered On: 08/14/2021 6:50 EDT Performed [...] on filedocumented in this encounter Care Teams Residential Support Worker Relationship Specialty Start Date End Date Reji Castro MD [address] [place] [address] PCP - General Adolescent Medicine 10/02/22 documented as of this encounter
--- OUTSIDE RECORDS SUMMARY | 2025-05-30 12:58 | XMS_ITS | Encounter Summary ---
Author Organization [employer] ([place], [place], [place], [place]) Address [address] [place] [address] Care Team Providers Care Pile Fabric Knitter Name Role Phone Reji Casrto MD Primary Care Provider [phone] Encounter Details Date Type Department Care Team (Late st Contact Info) Description 08/14/2021 Transcribed Document [facility] [place] [facility] [address] ProviderDelvin MD [address] [place] [phone] Social History Tobacco Use Types Packs/Day Years Used Date Smoking Tobacco: Never Assessed Comments Unknown Sex and Gender Information Value Date Recorded Sex Assigned at Not on file Legal Sex Female 4:32 PM CDT Gender Identity Not on file Sexual Orientation Not on file documented as of this encounter Miscellaneous Notes * Cerner Conversion Note - Delvin ProviderMD - 08/14/2021 7:45 AM CDT [facility] Main OR Preop Summary Primary Physician: NENA PEARSON MD-[facility] Finalized Date/Time: 08/14/21 09:52:23 Pt. Name: IRINA TAMAYO D.O.B./Sex: 1965 Female Med Rec #: [id number] Physician: VINCE BELLO MD Financial #: [id number] Pt. Type: I Room/Bed: 454/1 Admit/Disch: 08/11/21 21:21:00 - Institution: [facility] PreOp Case Times Entry 1 In Preop 08/14/21 06:28:00 Ready for Holding n/a Room Patient Ready for 08/14/21 06:46:00 Surgery Patient Out of Preop 08/14/21 07:32:00 Patient Out of n/a Holding Room Last Modified By: Charan Dutton Rn 08/14/21 09:52:22 [facility] PreOp Case Times Audit 08/14/21 09:52:22 Administrative Aide: [id number] Modifier: [id number] <+> 1 Patient Out of Preop Finalized By: Charan Dutton, Rn Document Signatures Signed By: Charan Dutton Rn 08/14/21 09:52 Electronically signed by Lanny [facility] Conversion Stand Up Comedian Cerner at 03/09/2023 8:46 PM CDT documented in this encounter Plan of Treatment Not on file documented as of this encounter Visit Diagnoses Not on filedocumented in this encounter Care Teams Pile Fabric Knitter Relationship Specialty Start Date End Date Reji Castro MD [address] [place] [address] PCP - General Adolescent Medicine 10/02/22 documented as of this encounter
--- OUTSIDE RECORDS SUMMARY | 2025-05-30 12:58 | XMS_ITS | Encounter Summary ---
Author Organization [employer] ([place], [place], [place], [place]) Address [address] [place] [address] Care Team Providers Care Museum Exhibit Technician Name Role Phone Reji Castro MD Primary Care Provider + [phone] Encounter Details Date Type Department Care Team (Late st Contact Info) Description 08/12/2021 Transcribed Document [facility] [facility] Family Medicine [address] [place] [address] ProviderDelvin MD [address] [place] [id number] Social History Tobacco Use Types Packs/Day Years [...] difficulty recalling timeline of events. Discharged from [facility] approximately 3 weeks ago after being [...] mmol/L (Low) 08/11/2021 17:59 EDT Sodium Ur [place] 29 mMole/Liter 08/12/2021 03:40 EDT Troponin I [...] # 0.76 K/uL (Low) 08/11/2021 17:59 EDT [place] % 9.5 % 08/12/2021 00:22 EDT [place] % 8.9 % 08/11/2021 17:59 EDT [place] # 0.64 K/uL 08/12/2021 00:22 EDT [place] # 0.61 K/uL 08/11/2021 17:59 EDT Eos [...] Appearance CLEAR2 08/11/2021 17:59 EDT Urine Specific [place] 1.007 08/11/2021 17:59 EDT Urine pH Dipstick [...] 08/11/2021 19:38 EDT Electronically signed by Lanny [facility] Conversion Rn Clinical Appeals Cerner at 03/09/2023 9:01 PM CDT documented in this encounter Plan of Treatment Not on file documented as of this encounter Visit Diagnoses Not on filedocumented in this encounter Care Teams Museum Exhibit Technician Relationship Specialty Start Date End Date Reji Castro MD [address] [place] [id number] PCP - General Adolescent Medicine 10/02/22 documented as of this encounter
--- OUTSIDE RECORDS SUMMARY | 2025-05-30 12:58 | XMS_ITS | Encounter Summary ---
Author Organization [employer] ([place], [place], [place], [place]) Address [address] [place] [address] Care Team Providers Care Parking Assistant Name Role Phone Reji Castro MD Primary Care Provider + [phone] Encounter Details Date Type Department Care Team (Late st Contact Info) Description 08/16/2021 Transcribed Document [facility] [place] [facility] [place] [address] ProviderDelvin MD [address] [place] [address] [phone] Social History Tobacco Use Types Packs/Day Years [...] mg, 14 mL, 128 mL/Hr, IV Piggyback, [id number]. diphenhydrAMINE: 25 mg, Oral, Q6H, PRN: Itching. [...] questions. Thank you, Andrea Moraes, PharmD PGY1 Diesel Mechanic Apprentice Pager: [phone], [phone]. [phone] Electronically signed by Loki Ca Conversion Carbon Sequestration Plant Operator Cerner at 03/09/2023 9:02 PM CDT documented in this encounter Plan of Treatment Not on file documented as of this encounter Visit Diagnoses Not on filedocumented in this encounter Care Teams Parking Assistant Relationship Specialty Start Date End Date Reji Castro MD [address] [place] [id number] PCP - General Adolescent Medicine 10/02/22 documented as of this encounter
--- OUTSIDE RECORDS SUMMARY | 2025-05-30 12:58 | XMS_ITS | Encounter Summary ---
Author Organization [employer] ([place], [place], [place], [place]) Address [address] [place] [address] Care Team Providers Care Mine Technician Name Role Phone Reji Castro MD Primary Care Provider + [phone] Encounter Details Date Type Department Care Team (Late st Contact Info) Description 08/12/2021 Transcribed Document [facility] [facility] [place] [address] ProviderDelvin MD [address] [place] [address] [phone] Social History Tobacco Use Types Packs/Day Years [...] her port could not be accessed. Her enrollment nurse aspirated fluid from the port that was evidently purulent. I have not yet been able to track down that culture. After the aspiration she developed fever to 103, severe CHEUNG, myalgias and arthralgias. She was admitted to [facility]. She was in the hospital for 10 [...] subsequently contacted and told to report to [facility] because she had + blood cutures concerning for an infected portacath +/- PVE. 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 [...] mg, 14 mL, 128 mL/Hr, IV Piggyback, [id number] DAPTOmycin + Sodium Chloride 0.9% intravenous solution 50 mL: 700 mg, 14 mL, 128 mL/Hr, IV Piggyback, [id number] Dextrose 50% injection: 12.5 Gram, IV Push, [...] tenderness, No swelling, No deformity. Integumentary: Warm, [place]. Neurologic: Alert, Oriented, No focal deficits. [...] -- Await CHUCHO Electronically signed by Lanny [facility] Conversion Steel Rod Buster Cerner at 03/09/2023 9:02 PM CDT documented in this encounter Plan of Treatment Not on file documented as of this encounter Visit Diagnoses Not on filedocumented in this encounter Care Teams Mine Technician Relationship Specialty Start Date End Date Reji Castro MD [address] [place] [id number] PCP - General Adolescent Medicine 10/02/22 documented as of this encounter
--- OUTSIDE RECORDS SUMMARY | 2025-05-30 12:58 | XMS_ITS | Encounter Summary ---
Author Organization [employer] ([place], [place], [place], [place]) Address [address] [place] [address] Care Team Providers Care Senior Operations Analyst Name Role Phone Reji Castro MD Primary Care Provider + [phone] Encounter Details Date Type Department Care Team (Late st Contact Info) Description 08/20/[address] [facility] [place] [address] ProviderDelvin MD [address] [place] [address] [phone] Social History Tobacco Use Types Packs/Day Years [...] 13:33 EDT by MADINA LOVETT RN - Sole DyerAccess Service Representative Progress Note Discharge Arrangements : Patient [...] Rounds? : Yes MADINA LOVETT RN - Sole Dyer - 08/20/2021 13:33 EDT Narrative Progress Note Narrative Progress Note : RRS Low Boost 5 Day 07/30 Patient was admitted for staph infection and port removal. She had a new port placed on 08/19. Patient needs to remain inpatient until her coumadin is at a therapeutic level per at [facility]. Patient will need IV rocephin until 09/08. Patient will need home health and says she has used [facility] in the past. CM will [...] is at a therapeutic level per at [facility]. Waiting on culture results for final abx plan. May need IV abx at home via port. Patient will need home health and lvies in [place]. [facility] home [facility] is a possibility. MADINA LOVETT RN - Sole Dyer - 08/19/21 15:40:22 RRS Low Boost 5 [...] will need home health and lives in [place]. [facility] home [facility] is a possibility. CM will continue to follow. DCP: MADINA LOVETT RN - Sole Dyer - 08/18/21 15:47:49 (late entry from 08/15-) [...] and send referrals as appropriate. JULIO STEWART, RN-Sole Dyer ED - 08/18/21 10:38:39 MADINA LOVETT, RN - Sole Dyer - 08/20/2021 13:33 EDT Electronically signed by Lanny [facility] Conversion Air Traffic Supervisor Cerner at 03/09/2023 8:49 PM CDT documented in this encounter Plan of Treatment Not on file documented as of this encounter Visit Diagnoses Not on filedocumented in this encounter Care Teams Senior Operations Analyst Relationship Specialty Start Date End Date Reji Castro MD [address] [place] [id number] PCP - General Adolescent Medicine 10/02/22 documented as of this encounter
--- OUTSIDE RECORDS SUMMARY | 2025-05-30 12:58 | XMS_ITS | Encounter Summary ---
Author Organization [employer] ([place], [place], [place], [place]) Address [address] [place] [address] Care Team Providers Care Environmental Services Floor Tech Name Role Phone Reji Castro MD Primary Care Provider + [phone] Encounter Details Date Type Department Care Team (Late st Contact Info) Description 08/12/2021 Transcribed Document [facility] [place] [address] ProviderDelvin MD [address] [place] [address] [phone] Social History Tobacco Use Types Packs/Day Years [...] On: 08/12/2021 8:46 EDT by TAWNYA AVILES, HEAD MVA REACTOR OPERATOR Bronchodilator Assessment Score, RT Pulmonary History, [...] Bronchodilator Assessment Score : 3 TAWNYA AVILES HEAD MVA REACTOR OPERATOR - 08/12/2021 8:46 EDT Electronically signed by Lanny, [facility] Conversion Public Health Epidemiologist Cerner at 03/09/2023 8:59 PM CDT documented in this encounter Plan of Treatment Not on file documented as of this encounter Visit Diagnoses Not on filedocumented in this encounter Care Teams Environmental Services Floor Tech Relationship Specialty Start Date End Date Reji Castro MD [address] [place] [id number] PCP - General Adolescent Medicine 10/02/22 documented as of this encounter
--- OUTSIDE RECORDS SUMMARY | 2025-05-30 12:58 | XMS_ITS | Encounter Summary ---
Author Organization [employer] ([place], [place], [place], [place]) Address [address] [place] [address] Care Team Providers Care Concrete Wall Grinder Operator Name Role Phone Reji Castro MD Primary Care Provider + [phone] Encounter Details Date Type Department Care Team (Late st Contact Info) Description 08/25/2021 Transcribed Document [facility] [address] [place] [address] ProviderDelvin MD [address] [place] [address] [phone] Social History Tobacco Use Types Packs/Day Years [...] On: 08/25/2021 10:48 EDT by Porfirio Caban Utility Service Worker Cert Lead Meds to Bed Enrollment Patient Enrollment Decision: : No/do not enroll in meds to bed program Reason for Declining Meds to Bed Program: : Prefer to use home pharmacy Porfirio Caban Utility Service Worker Cert Lead - 08/26/2021 11:11 EDT documented in this encounter Plan of Treatment Not on file documented as of this encounter Visit Diagnoses Not on filedocumented in this encounter Care Teams Concrete Wall Grinder Operator Relationship Specialty Start Date End Date Reji Castro MD [address] [place] [id number] PCP - General Adolescent Medicine 10/02/22 documented as of this encounter
--- OUTSIDE RECORDS SUMMARY | 2025-05-30 12:58 | XMS_ITS | Encounter Summary ---
Author Organization [employer] ([place], [place], [place], [place]) Address [address] [place] [address] Care Team Providers Care Rehab Technician Name Role Phone Reji Castro MD Primary Care Provider + [phone] Encounter Details Date Type Department Care Team (Late st Contact Info) Description 08/16/2021 Transcribed Document [facility] [place] [facility] [place] [address] ProviderDelvin MD [address] [place] [address] [phone] Social History Tobacco Use Types Packs/Day Years [...] 5. Diabetes mellitus type II E11.9 6. intermission coordinator current use of anticoagulant Z79.01 At risk for central venous catheter associated infection Z91.89 Chronic kidney disease N18.9 Medical screening exam [id number] Medications Inpatient acetaminophen, 650 mg= 2 Tab, [...] penicillins propafenone theophylline Electronically signed by Lanny, [facility] Conversion Qc Tech Cerner at 03/09/2023 8:52 PM CDT documented in this encounter Plan of Treatment Not on file documented as of this encounter Visit Diagnoses Not on filedocumented in this encounter Care Teams Rehab Technician Relationship Specialty Start Date End Date Reji Castro MD [address] [place] [id number] PCP - General Adolescent Medicine 10/02/22 documented as of this encounter
--- OUTSIDE RECORDS SUMMARY | 2025-05-30 12:58 | XMS_ITS | Encounter Summary ---
Author Organization [employer] ([place], [place], [place], [place]) Address [address] [place] [address] Care Team Providers Care Coal Pulverizer Operator Name Role Phone Reji Castro MD Primary Care Provider + [phone] Encounter Details Date Type Department Care Team (Late st Contact Info) Description 08/19/2021 Transcribed Document [facility] [place] [facility] [place] [address] ProviderDelvin MD [address] [place] [address] [phone] Social History Tobacco Use Types Packs/Day Years [...] # 0.34 x10(3)/uL (Low) 08/19/2021 11:06 EDT [place] % 7.3 % 08/19/2021 11:06 EDT [place] # 0.79 K/uL 08/19/2021 11:06 EDT Eos [...] Heparin 74.4 Second(s) (High) 08/18/2021 18:32 EDT documented in this encounter Plan of Treatment Not on file documented as of this encounter Visit Diagnoses Not on filedocumented in this encounter Care Teams Coal Pulverizer Operator Relationship Specialty Start Date End Date Reji Castro MD [address] [place] [phone] PCP - General Adolescent Medicine 10/02/22 documented as of this encounter
--- OUTSIDE RECORDS SUMMARY | 2025-05-30 12:58 | XMS_ITS | Encounter Summary ---
Author Organization [employer] ([place], [place], [place], [place]) Address [address] [place] [address] Care Team Providers Care Business Analytics Director Name Role Phone Reji Castro MD Primary Care Provider + [phone] Encounter Details Date Type Department Care Team (Late st Contact Info) Description 08/14/2021 Transcribed Document [facility] [place] [address] ProviderDelvin MD [address] [place] [address] [phone] Social History Tobacco Use Types Packs/Day Years [...] # 0.71 x10(3)/uL (Low) 08/13/2021 23:47 EDT [place] % 10.6 % (High) 08/13/2021 23:47 EDT [place] # 0.58 K/uL 08/13/2021 23:47 EDT Eos [...] (Low) 08/13/2021 18:40 EDT Electronically signed by [facility], Sjh Conversion Extractor Operator Solvent Process Cerner at 03/09/2023 8:31 PM CDT documented in this encounter Plan of Treatment Not on file documented as of this encounter Visit Diagnoses Not on filedocumented in this encounter Care Teams Business Analytics Director Relationship Specialty Start Date End Date Reji Castro MD [address] [place] [id number] PCP - General Adolescent Medicine 10/02/22 documented as of this encounter
--- OUTSIDE RECORDS SUMMARY | 2025-05-30 12:58 | XMS_ITS | Encounter Summary ---
Author Organization [employer] ([place], [place], [place], [place]) Address [address] [place] [address] Care Team Providers Care Political Reporter Name Role Phone Reji Castro MD Primary Care Provider [phone] Encounter Details Date Type Department Care Team (Late st Contact Info) Description 08/16/2021 Transcribed Document [facility] Radiology [address] [place] [address] Loren Solorzano MD [address] [place] [address] [place] [address] Social History Tobacco Use Types Packs/Day Years [...] mg, 14 mL, 128 mL/Hr, IV Piggyback, [id number] Dextrose 50% injection: 12.5 Gram, IV Push, [...] mL 700 mg 14 mL, IV Piggyback, [id number] famotidine 20 mg tab 20 mg 1 [...] Bioprosthetic mitral valve replacement / SNOMED CT 045677800 / Confirmed Chronic kidney disease / SNOMED CT 7449430871 / Confirmed COPD - Chronic obstructive pulmonary disease / SNOMED CT 848250825 / Confirmed History of obstructive sleep apnea / IMO [id number] / Confirmed HLD - Hyperlipidemia / SNOMED CT 481586460 / Confirmed HTN - Hypertension / SNOMED CT 9437322133 / Confirmed Canceled: Atrial fibrillation / SNOMED CT 15847802, Active Problems (25) AIHA (autoimmune hemolytic anemia) [...] hrs) Last Charted Minimum Maximum Temp 98 ([facility] 10:50) 97.6 ([facility] 06:00) 98 ([facility] 18:00) Apical HR 76 ([facility] 20:32) 76 ([facility] 20:32) 76 ([facility] 20:32) Mon HR 81 ([facility] 10:50) 67 ([facility] 14:52) 85 ([facility] 18:00) Resp Rate 18 ([facility] 10:50) 14 ([facility] 23:00) 19 ([facility] 18:00) SBP 112 ([facility] 10:50) 95 ([facility] 14:52) 114 ([facility] 23:00) DBP 60 ([facility] 10:50) L 45 ([facility] 14:52) 63 ([facility] 18:00) MAP 74 ([facility] 10:50) 63 ([facility] 23:00) 83 ([facility] 18:00) SpO2 97 ([facility] 10:50) L 92 ([facility] 14:52) 99 ([facility] 03:39) General: Alert and oriented, No acute [...] EDT BIN HERNANDEZ, DO-INT Discontinued Medications: acetaminophen-hydrocodone ([place] 10 mg-325 mg oral tablet) 1 Tab, [...] as multiple sites of metal in her body?CHUCOH neg for endocarditis ID following: Cefazolin, Daptomycin?will [...] Hold home meds SSI #Depression Celexa #Pain [place] 10 mg every 6 hours as [...] on filedocumented in this encounter Care Teams Political Reporter Relationship Specialty Start Date End Date Reji Castro MD [address] [place] [id number] PCP - General Adolescent Medicine 10/02/22 documented as of this encounter
--- OUTSIDE RECORDS SUMMARY | 2025-05-30 12:58 | XMS_ITS | Encounter Summary ---
Author Organization [employer] ([place], [place], [place], [place]) Address [address] [place] [address] Care Team Providers Care Site Safety Manager Name Role Phone Reji Castro MD Primary Care Provider + [phone] Encounter Details Date Type Department Care Team (Late st Contact Info) Description 08/19/2021 Transcribed Document [facility] [facility] [place] [address] ProviderDelvin MD [address] [place] [address] [phone] Social History Tobacco Use Types Packs/Day Years [...] cefTRIAXone: 2 Gram, 100 mL/Hr, IV Piggyback, [id number]. citalopram: 40 mg, Oral, Daily. diphenhydrAMINE: 50 [...] questions. Thank you, Andrea Moraes, PharmD PGY1 Vat Tender Pager: [phone]. [phone] Electronically signed by Lanny, [facility] Conversion Cad Cam Programmer Cerner at 03/09/2023 8:43 PM CDT documented in this encounter Plan of Treatment Not on file documented as of this encounter Visit Diagnoses Not on filedocumented in this encounter Care Teams Site Safety Manager Relationship Specialty Start Date End Date Reji Castro MD [address] [place] [id number] PCP - General Adolescent Medicine 10/02/22 documented as of this encounter
--- OUTSIDE RECORDS SUMMARY | 2025-05-30 12:58 | XMS_ITS | Encounter Summary ---
Author Organization [employer] ([place], [place], [place], [place]) Address [address] [place] [address] Care Team Providers Care Stationary Engineer Supervisor Name Role Phone Reji Castro MD Primary Care Provider + [phone] Encounter Details Date Type Department Care Team (Late st Contact Info) Description 08/16/2021 Transcribed Document [facility] [place] [facility] [place] [address] ProviderDelvin MD [address] [place] [address] [phone] Social History Tobacco Use Types Packs/Day Years [...] on filedocumented in this encounter Care Teams Stationary Engineer Supervisor Relationship Specialty Start Date End Date Reji Castro MD [address] [place] [id number] PCP - General Adolescent Medicine 10/02/22 documented as of this encounter
--- OUTSIDE RECORDS SUMMARY | 2025-05-30 12:58 | XMS_ITS | Encounter Summary ---
Author Organization [employer] ([place], [place], [place], [place]) Address [address] [place] [address] Care Team Providers Care Slat Basket Maker Helper Machine Name Role Phone Reji Castro MD Primary Care Provider + [phone] Encounter Details Date Type Department Care Team (Late st Contact Info) Description 08/14/[address] [facility] [address] [place] [address] ProviderDelvin MD [address] [place] [address] [phone] Social History Tobacco Use Types Packs/Day Years [...] back to her room in stable condition. /[id number] MD GERMAINE Pollard/TONYA / DOTTIE / DARIL /[id number] Electronically signed by Lanny, [facility] Conversion Senior Linux Administrator Cerner at 03/09/2023 8:43 PM CDT documented in this encounter Plan of Treatment Not on file documented as of this encounter Visit Diagnoses Not on filedocumented in this encounter Care Teams Slat Basket Maker Helper Machine Relationship Specialty Start Date End Date Reji Castro MD [address] [place] [id number] PCP - General Adolescent Medicine 10/02/22 documented as of this encounter
--- OUTSIDE RECORDS SUMMARY | 2025-05-30 12:58 | XMS_ITS | Encounter Summary ---
Author Organization [employer] ([place], [place], [place], [place]) Address [address] [place] [address] Care Team Providers Care Air Bag Curer Name Role Phone Reji Castro MD Primary Care Provider + [phone] Encounter Details Date Type Department Care Team (Late st Contact Info) Description 08/16/2021 Transcribed Document [facility] [place] [facility] [place] [address] ProviderDelvin MD [address] [place] [address] [phone] Social History Tobacco Use Types Packs/Day Years [...] mL - 700 mg, IV Piggyback, Inj, A68QUfl, infuse over 30 Minute(s), Routine Cardiovascular metoprolol [...] hrs) Last Charted Minimum Maximum Temp 98 ([facility] 10:50) 97.6 ([facility] 06:00) 98 ([facility] 18:00) Apical HR 76 ([facility] 20:32) 76 ([facility] 20:32) 76 ([facility] 20:32) Mon HR 81 (AUG 16 10:50) 67 ([facility] 14:52) 85 ([facility] 18:00) Resp Rate 18 (AUG 16 10:50) 14 ([facility] 23:00) 19 ([facility] 18:00) SBP 112 ([facility] 10:50) 95 ([facility] 14:52) 114 ([facility] 23:00) DBP 60 ([facility] 10:50) L 45 ([facility] 14:52) 63 ([facility] 18:00) MAP 74 ([facility] 10:50) 63 ([facility] 23:00) 83 ([facility] 18:00) SpO2 97 ([facility] 10:50) L 92 ([facility] 24 14:52) 99 [...] filedocumented in this encounter Care Teams Air Bag Curer Relationship Specialty Start Date End Date Reji Castro MD [address] [place] [id number] PCP - General Adolescent Medicine 10/02/22 documented as of this encounter
--- OUTSIDE RECORDS SUMMARY | 2025-05-30 12:58 | XMS_ITS | Encounter Summary ---
Author Organization [employer] ([place], [place], [place], [place]) Address [address] [place] [address] Care Team Providers Care Online Advertising Analyst Name Role Phone Reji Castro MD Primary Care Provider + [phone] Encounter Details Date Type Department Care Team (Late st Contact Info) Description 08/12/2021 Transcribed Document [facility] [facility] [place] [address] ProviderDelvin MD [address] [place] [address] [phone] Social History Tobacco Use Types Packs/Day Years Used Date Smoking Tobacco: Never Assessed Comments Unknown Sex and Gender Information Value Date Recorded Sex Assigned at Not on file Legal Sex Female 4:32 PM CDT Gender Identity Not on file Sexual Orientation Not on file documented as of this encounter Miscellaneous Notes * Cerner Conversion Note - Historical ProviderMD - 08/12/2021 2:00 AM CDT Professor Of Criminal Justice Details Entered On: 08/12/2021 0:22 EDT Performed [...] in this encounter Care Teams Online Advertising Analyst Relationship Specialty Start Date End Date Reji Castro MD [address] [place] [id number] PCP - General Adolescent Medicine 10/02/22 documented as of this encounter
--- OUTSIDE RECORDS SUMMARY | 2025-05-30 12:58 | XMS_ITS | Encounter Summary ---
Author Organization [employer] ([place], [place], [place], [place]) Address [address] [place] [address] Care Team Providers Care Explosive Operator Name Role Phone Reji Castro MD Primary Care Provider + [phone] Encounter Details Date Type Department Care Team (Late st Contact Info) Description 08/20/2021 Transcribed Document [facility] [place] [address] [place] [address] ProviderDelvin MD [address] [place] [address] [phone] Social History Tobacco Use Types Packs/Day Years [...] filedocumented in this encounter Care Teams Explosive Operator Relationship Specialty Start Date End Date Reji Castro MD [address] [place] [id number] PCP - General Adolescent Medicine 10/02/22 documented as of this encounter
--- OUTSIDE RECORDS SUMMARY | 2025-05-30 12:58 | XMS_ITS | Encounter Summary ---
Author Organization [employer] ([place], [place], [place], [place]) Address [address] [place] [address] Care Team Providers Care Installation & Maintenance Executive Name Role Phone Reji Castro MD Primary Care Provider + [phone] Encounter Details Date Type Department Care Team (Late st Contact Info) Description 08/14/2021 Transcribed Document [facility] [place] [address] [place] [address] ProviderDelvin MD [address] [place] [address] [phone] Social History Tobacco Use Types Packs/Day Years Used Date Smoking Tobacco: Never Assessed Comments Unknown Sex and Gender Information Value Date Recorded Sex Assigned at Not on file Legal Sex Female 4:32 PM CDT Gender Identity Not on file Sexual Orientation Not on file documented as of this encounter Miscellaneous Notes * Cerner Conversion Note - Delvin ProviderMD - 08/14/2021 7:45 AM CDT [facility] Main OR IntraOp Summary Primary Physician: NENA PEARSON MD-SUR Finalized Date/Time: 08/18/21 09:41:55 Pt. Name: TAMAYO IRINAMARCIO Latham D.O.B./Sex: 1965 Female Med Rec #: [id number] Physician: VINCE BELLO MD Financial #: [id number] Pt. Type: I Room/Bed: [facility]/ Admit/Disch: 08/11/21 21:21:00 - Institution: [facility] IntraOp Case Attendance Entry 1 Entry 2 Entry 3 Case Attendee NENA PEARSON MD-Erika Murry RN Poe, Kali JEREMIAH Role Performed Surgeon/Proceduralist, Access Clinician, First Access Clinician, Second First Time In 08/14/21 07:34:00 08/14/21 [...] Case Attendee Randee Swain, Scrub TAMELA PRITCHETT, CHURCH ORGANIST BORIS VEGAS, Pedro Pablo FIGUEROA-ANS Role Performed Scrub, First CHURCH ORGANIST/Nurse Teacher Physically Impaired Anesthesiologist of Record Time In 08/14/21 07:34:00 08/14/21 07:34:00 08/14/21 07:34:00 Time Out 08/14/21 08:17:00 08/14/21 08:17:00 08/14/21 08:17:00 Procedure Vascular Access Removal Vascular Access Removal Vascular Access Removal Other Attendee Superficial Wound Closed By: Last Modified By: Erika Montgomery, Erika Chand, Erika Chand, JEREMIAH 08/14/21 08:22:17 08/14/21 08:22:17 08/14/21 08:22:17 Entry 7 Case Attendee OTHER, ATTENDEE #1 Role Performed CHURCH ORGANIST/Nurse Teacher Physically Impaired Time In 08/14/21 07:34:00 Time Out 08/14/21 08:17:00 Procedure Vascular Access Removal Other Attendee JOEY HOBBS CHURCH ORGANIST STUDENT Superficial Wound Closed By: Last Modified By: Erika Montgomery RN 08/14/21 10:50:59 [facility] IntraOp Case Attendance Audit 08/14/21 10:50:59 Supervisor Inspection And Testing: LIAM Modifier: LIAM 7 <*> Procedure Vascular Access Removal 7 <*> Other Attendee JOEY PROCTOR CHURCH ORGANIST STUDENT 08/14/21 08:24:52 Supervisor Inspection And Testing: LAFAVEHM Modifier: LAFAVEHM <+> 7 Case Attendee <+> 7 Role Performed <+> 7 Time In <+> 7 Time Out <+> 7 Procedure <+> 7 Other Attendee 08/14/21 08:22:17 Supervisor Inspection And Testing: LAFAVEHM Modifier: LAFAVEHM 1 <+> Time In [...] <*> Procedure Vascular Access Removal [facility] IntraOp Case Times Entry 1 Patient In Room Time 08/14/21 07:34:00 Out Room Time 08/14/21 08:17:00 Anesthesia Start Time 08/14/21 07:34:00 Stop Time 08/14/21 08:17:00 Surgery / Procedure Times Start Time 08/14/21 07:45:00 Stop Time 08/14/21 08:08:00 Last Modified By: Erika Montgomery RN 08/14/21 08:17:16 [facility] IntraOp Case Times Audit 08/14/21 08:17:16 Supervisor Inspection And Testing: LAFAVEHM Modifier: LAFAVEHM <+> 1 Out Room Time <+> 1 Stop Time <+> 1 Stop Time 08/14/21 07:46:45 Supervisor Inspection And Testing: LAFAVEHM Modifier: LAFAVEHM <+> 1 Start Time [facility] IntraOp Cautery Entry 1 ESU Identification Cautery Type Monopolar ESU ID Number [id number] ID Type Hospital Number Cautery Settings Cut Setting 30 Coag Setting 30 ESU Grounding Pad Ground Pad Type Reusable electrode pad Grounding Pad Type MEGADYNE PAD Comment Grounding Pad Site Posterior Grounding Pad Site Warm, dry and intact Skin Condition Before Cautery Grounding Pad Site Unchanged Skin Condition After Cautery Last Modified By: Erika Montgomery RN 08/14/21 07:19:50 [facility] IntraOp Communication Entry 1 Communication To Family/Significant other Communication By Erika Montgomery RN Date and Time 08/14/21 07:47:00 Last Modified By: Erika Montgomery RN 08/14/21 07:47:41 [facility] IntraOp Counts Verification Entry 1 Procedure Vascular [...] [facility] IntraOp Counts Final Audit 08/14/21 08:02:40 Supervisor Inspection And Testing: LIAM Modifier: LIAM 1 <*> Procedure Vascular Access Removal 1 <*> Count Type Sponge, Sharps, Miscellaneous 1 <*> Count Results Correct, surgeon notified 1 <+> Count Performed By (Scrub) 1 <+> Count Performed By (RN) 1 <*> Counts Verification Sequence Skin Closure/end of procedure [facility] IntraOp Cultures and Spec Summary Entry 1 Cultrures and Specimens Specimen Ordered: Yes Test(s) Culture(s)/Microbiology Requested/Final Disposition Last Modified By: Erika Montgomery RN 08/14/21 07:51:28 [facility] IntraOp Delays Entry 1 Delay Reason Other Duration 4 Minute(s) Comment MEDICATION DELAY Last Modified By: Erika Montgomery RN 08/14/21 07:49:40 [facility] IntraOp Departure from OR Entry 1 Integumentary Assessment Transfer/Handoff Transfer to Other Handoff Method Bedside/Face to face, Phone call, Online nursing summary Post-op Transport Stretcher/Roderick Via Patient Transport TAMELA PRITCHETT CRNA Accompanied by Transfer/Handoff RN REPORT ( ELEVATED Comments HOB WEIGHT OVER DRRESSING (IV BAG) RESTRICT USE LEFT ARM X [address] PEARSON. TRANSPORT TO FLOOR BY [facility] Last Modified By: Erika Montgomery RN 08/14/21 08:21:55 [facility] IntraOp Departure from OR Audit 08/14/21 08:21:55 Supervisor Inspection And Testing: LIAM Modifier: LAFBEAR 1 <*> Transfer/Handoff Comments TRANSPORT TO FLOOR BY [facility] 1 <+> Post-op Transport Via [facility] IntraOp Dressing and Packing Entry 1 Type Dressing Location L UPPER CHEST Wound Dressing Item 4x4's, Skin Closure Glue Other Comments PRESSURE DRESSING Last Modified By: Erika Montgomery RN 08/14/21 08:19:18 [facility] IntraOp Fire Risk Assessment Entry 1 Fire [...] Erika Montgomery RN 08/14/21 07:49:49 [facility] IntraOp Fire Risk Assessment Audit 08/14/21 07:49:49 Supervisor Inspection And Testing: LIAM Modifier: LAFAVEHM <+> 1 Fire Risk Assessment Verified Date/Time [facility] Intra General Case Paramedic 1 Case Information OR OR 08 [facility] Case Level 1 Room Verified Yes Wound Class I - Clean Specialty General Anesthesia Type MAC ASA Class 4 Diagnosis Preop Diagnosis INFECTED SANAM CATH Postop Same As Preop No Postop Diagnosis SEE MD POST OP NOTES Last Modified By: Erika Montgomery RN 08/14/21 07:52:14 [facility] IntraOp General Case Data Audit 08/14/21 07:52:14 Supervisor Inspection And Testing: LIAM Modifier: LAFAVEHM <+> 1 Preop Diagnosis [facility] IntraOp Intraoperative Assessment Entry 1 Handoff Method Bedside/Face to face, Phone call, Online nursing summary Valid History / Yes Physical in Chart Preoperative Yes Checklist Reviewed/Evaluated Allergies Reviewed Yes Patient is Latex No Sensitive Present Upon IVs Arrival to OR Last Modified By: Erika Montgomery RN 08/14/21 07:20:57 [facility] IntraOp Intraoperative Equipment Entry 1 Type Monitoring Equipment Equipment Juan Carlos Suction System Intraop Monitoring Antiembolic Devices Scopes Photo/Video Documentation Last Modified By: Erika Montgomery RN 08/14/21 07:21:08 [facility] IntraOp Medication Admin Entry 1 Medication/Irrigant lidocaine 1% w/ epinephrine 1:100,000 30ml vial - [id number] Route of LOCAL Administration Dose Dose 10 Unit of Measure ml Administered By NENA PEARSON MD-SUR Procedure Irrigation Last Modified By: Erika Montgomery RN 08/14/21 08:02:53 [facility] IntraOp Medication Admin Audit 08/14/21 08:02:53 Supervisor Inspection And Testing: LAFAVEHM Modifier: LAFAVEHM 1 <*> Medication/Irrigant lidocaine 1% w/ epinephrine 1:100,000 30ml vial - [id number] 1 <+> Dose [facility] IntraOp Patient Positioning Entry 1 Procedure Vascular [...] Erika Montgomery RN 08/14/21 07:23:01 [facility] IntraOp Patient Positioning Audit 08/14/21 07:23:01 Supervisor Inspection And Testing: LAFAVEHM Modifier: LAFAVEHM 1 <*> Procedure Vascular Access Removal 1 <+> Positioning Verified by Anesthesia 1 <+> Positioning Verified by Surgeon 1 <+> Positioned By [facility] IntraOp Sign In Entry 1 Patient, Site, [...] Erika Montgomery RN 08/14/21 07:47:09 [facility] IntraOp Sign Out Entry 1 RN Confirmation [...] Erika Montgomery RN 08/14/21 08:22:10 [facility] IntraOp Sign Out Audit 08/14/21 08:22:10 Supervisor Inspection And Testing: LIAM Modifier: LAFAVEHM <+> 1 RN Sign Out Signature Date/Time [facility] IntraOp Skin Prep Entry 1 Procedure Vascular Access Removal Prescribed Yes Pre-Surgical Prep Completed Prep Area CHEST INCLUDE LEFT SHOULDER Intraop Prep Prep Agents Chloraprep Prep by NENA PEARSON MD-TATYANA Hair Removal Methods No hair removal performed Last Modified By: Erika Montgomery RN 08/14/21 07:49:03 [facility] IntraOp Surgical Procedures Entry 1 Procedure Vascular Access Removal Additional (PORT A CATH REMOVAL) Procedure Description Primary Procedure Yes Primary Surgeon NENA PEARSON MD-TATYANA Start 08/14/21 07:45:00 Stop 08/14/21 08:08:00 Anesthesia Type MAC Specialty General Wound Class I - Clean Last Modified By: Erika Montgomery RN 08/14/21 08:22:14 General Comments: PATIENT ON SCHEDULED ANTIBIOTICS/ NO ADDITIONAL ANTIBIOTICS PER SURGEON [facility] IntraOp Surgical Procedures Audit 08/14/21 08:22:14 Supervisor Inspection And Testing: LAFBEAR Modifier: LAFAVEHM 1 <*> Stop 08/14/21 07:48:13 Supervisor Inspection And Testing: LIAM Modifier: LIAM 1 <*> Start 1 <*> Start [facility] IntraOP Time Out Entry 1 Procedure to [...] WATTSDR Correct Billing Electronically signed by Lanny [facility] Conversion Supervisory Lifeguard Cerner at 03/09/2023 8:33 PM CDT documented in this encounter Plan of Treatment Not on file documented as of this encounter Visit Diagnoses Not on filedocumented in this encounter Care Teams Installation & Maintenance Executive Relationship Specialty Start Date End Date Reji Castro MD [address] [place] [id number] PCP - General Adolescent Medicine 10/02/22 documented as of this encounter
--- OUTSIDE RECORDS SUMMARY | 2025-05-30 12:58 | XMS_ITS | Encounter Summary ---
Author Organization [employer] ([place], [place], [place], [place]) Address [address] [place] [address] Care Team Providers Care Hat Ironer Name Role Phone Reji Castro MD Primary Care Provider + [phone] Encounter Details Date Type Department Care Team (Late st Contact Info) Description 08/19/2021 Transcribed Document [facility] [place] [address] ProviderDelvin MD [address] [place] [address] [phone] Social History Tobacco Use Types Packs/Day Years [...] her port could not be accessed. Her city assessor aspirated fluid from the port that was evidently purulent. I have not yet been able to track down that culture. After the aspiration she developed fever to 103, severe CHEUNG, myalgias and arthralgias. She was admitted to [facility]. She was in the hospital for [...] antibiotics. On 08/08 she presented to a [facility] after she developed severe CHEUNG and myalgias w/o prominent fever. She was subsequently contacted and told to report to [facility] because she had + blood cutures concerning for an infected portacath +/- PVE. 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 Integumentary: Warm, [place]. Neurologic: Alert, Oriented, No focal deficits. Psychiatric: [...] filedocumented in this encounter Care Teams Hat Ironer Relationship Specialty Start Date End Date Reji Castro MD [address] [place] [id number] PCP - General Adolescent Medicine 10/02/22 documented as of this encounter
--- OUTSIDE RECORDS SUMMARY | 2025-05-30 12:58 | XMS_ITS | Encounter Summary ---
Author Organization [employer] ([place], [place], [place], [place]) Address [address] [place] [address] Care Team Providers Care Print Room Worker Name Role Phone Reji Castro MD Primary Care Provider + [phone] Encounter Details Date Type Department Care Team (Late st Contact Info) Description 08/17/2021 Transcribed Document [facility] [place] [facility] [place] [address] ProviderDelvin MD [address] [place] [address] Social History Tobacco Use Types Packs/Day [...] Historical ProviderMD - 08/17/2021 2:00 AM CDT Director Of Counseling Details Entered On: 08/17/2021 1:07 EDT Performed [...] on filedocumented in this encounter Care Teams Print Room Worker Relationship Specialty Start Date End Date Reji Castro MD [address] [place] [id number] PCP - General Adolescent Medicine 10/02/22 documented as of this encounter
--- OUTSIDE RECORDS SUMMARY | 2025-05-30 12:58 | XMS_ITS | Encounter Summary ---
Author Organization [employer] ([place], [place], [place], [place]) Address [address] [place] [address] Care Team Providers Care Political Science Faculty Member Name Role Phone Reji Castro MD Primary Care Provider + [phone] Encounter Details Date Type Department Care Team (Late st Contact Info) Description 08/25/2021 Transcribed Document [facility] [place] [facility] [place] [address] ProviderDelvin MD [address] [place], [place] [address]751 Social History Tobacco Use Types Packs/Day Years [...] Patient stated she has chest pain, called COMPLIANCE QUALITY PERFORMANCE ANALYST Team, called md. Vitals signs stable. Put zoll on patient. Stat ekg ordered, cxr and troponin. Patient transferred to [facility]. WILLIAMS HANEY RN - 08/25/2021 11:02 EDT Electronically signed by Loki Ca [employer]version [employer] Membership Advisors Marisa at 03/09/2023 9:02 PM CDT documented in this encounter Plan of Treatment Not on file documented as of this encounter Visit Diagnoses Not on filedocumented in this encounter Care Teams Political Science Faculty Member Relationship Specialty Start Date End Date Reji Castro MD [address] [place] [id number] PCP - General Adolescent Medicine 10/02/22 documented as of this encounter
--- OUTSIDE RECORDS SUMMARY | 2025-05-30 12:58 | XMS_ITS | Encounter Summary ---
Author Organization [employer] ([place], [place], [place], [place]) Address [address] [place] [address] Care Team Providers Care Brim Raiser Name Role Phone Reji Castro MD Primary Care Provider + [phone] Encounter Details Date Type Department Care Team (Late st Contact Info) Description 08/19/2021 Transcribed Document [facility] [place] [facility] [place] [address] ProviderDelvin MD [address] [place] [address] [phone] Social History Tobacco Use Types Packs/Day Years Used Date Smoking Tobacco: Never Assessed Comments Unknown Sex and Gender Information Value Date Recorded Sex Assigned at Not on file Legal Sex Female 4:32 PM CDT Gender Identity Not on file Sexual Orientation Not on file documented as of this encounter Miscellaneous Notes * Cerner Conversion Note - Historical ProviderMD - 08/19/2021 2:00 AM CDT Brush Filler Hand Details Entered On: 08/19/2021 3:57 EDT Performed [...] Kayy Garcia, RN - 08/19/2021 3:56 EDT Electronically signed by Loki Ca Conversion Homemaking Rehabilitation Consultant Cerner at 03/09/2023 8:32 PM CDT documented in this encounter Plan of Treatment Not on file documented as of this encounter Visit Diagnoses Not on filedocumented in this encounter Care Teams Brim Raiser Relationship Specialty Start Date End Date Reji Castro MD [address] [place] [id number] PCP - General Adolescent Medicine 10/02/22 documented as of this encounter
--- OUTSIDE RECORDS SUMMARY | 2025-05-30 12:58 | XMS_ITS | Encounter Summary ---
Author Organization [employer] ([place], [place], [place], [place]) Address [address] [place] [address] Care Team Providers Care Web Design Intern Name Role Phone Reji Castro MD Primary Care Provider + [phone] Encounter Details Date Type Department Care Team (Late st Contact Info) Description 08/14/2021 Transcribed Document [facility] [place] [address] ProviderDelvin MD [address] [place] [address] [phone] Social History Tobacco Use Types Packs/Day Years [...] filedocumented in this encounter Care Teams Web Design Intern Relationship Specialty Start Date End Date Reji Castro MD [address] [place] [address] PCP - General Adolescent Medicine 10/02/22 documented as of this encounter
--- OUTSIDE RECORDS SUMMARY | 2025-05-30 12:58 | XMS_ITS | Encounter Summary ---
Author Organization [email or web address] ([place], [place], [place], [place]) Address [address] [place] [address] Care Team Providers Care Wire Web Worker Name Role Phone Reji Castro MD Primary Care Provider + [phone] Encounter Details Date Type Department Care Team (Late st Contact Info) Description 08/12/2021 Transcribed Document [facility] [place] [facility] [place] [address] ProviderDelvin MD [address] [place] [address] [phone] Social History Tobacco Use Types Packs/Day Years [...] Health Plan: [employer] PPO Policy Number: [id number] Authorization Number: Insurance 2 Health Plan: [place] Policy Number: [id number] Authorization Number: Insurance Primary Name : [employer] PPO Policy Number: [id number] Authorization Status-Primary : Awaiting callback Reference Number-Primary : Pend ref #[id number] Authorized Service Begin Date-Primary : 08/11/2021 EDT Authorization Comments-Primary : Pend ref no per Availity, reviewer has access to Marisa Historical Authorization Comments-Primary : No Authorization Comments Found JORGE VALLES, RN - 08/12/2021 14:07 EDT documented in this encounter Plan of Treatment Not on file documented as of this encounter Visit Diagnoses Not on filedocumented in this encounter Care Teams Wire Web Worker Relationship Specialty Start Date End Date Reji Castro MD [address] [place] [id number] PCP - General Adolescent Medicine 10/02/22 documented as of this encounter
--- OUTSIDE RECORDS SUMMARY | 2025-05-30 12:58 | XMS_ITS | Encounter Summary ---
Author Organization [employer] ([place], [place], [place], [place]) Address [address] [place] [address] Care Team Providers Care Cyber Intel Planner Name Role Phone Reji Castro MD Primary Care Provider + [phone] Encounter Details Date Type Department Care Team (Late st Contact Info) Description 08/19/2021 Transcribed Document [facility] [place] [address] [place] [address] ProviderDelvin MD [address] [place] [address] [phone] Social History Tobacco Use Types Packs/Day Years [...] Phlebosclerosis. PROCEDURE PERFORMED: Right IJ PowerPort placement. FIXTURE REPAIRER FABRICATOR: Cherri Ya. ANESTHESIA: Local MAC. FINDINGS: An 8-Spanish single lumen PowerPort was placed using a [...] and J-wire followed by passage of the 8-Spanish single-lumen catheter. Once again, fluoroscopy was used [...] taken to the Recovery in stable condition. /[id number] Sandeep Holliday MD [facility]/TONYA / DOTTIE / DARIL /[id number] documented in this encounter Plan of Treatment Not on file documented as of this encounter Visit Diagnoses Not on filedocumented in this encounter Care Teams Cyber Intel Planner Relationship Specialty Start Date End Date Reji Castro MD [address] [place] [id number] PCP - General Adolescent Medicine 10/02/22 documented as of this encounter
--- OUTSIDE RECORDS SUMMARY | 2025-05-30 12:58 | XMS_ITS | Encounter Summary ---
Author Organization [employer] ([place], [place], [place], [place]) Address [address] [place] [address] Care Team Providers Care Motion Picture Commentator Name Role Phone Reji Castro MD Primary Care Provider + [phone] Encounter Details Date Type Department Care Team (Late st Contact Info) Description 08/19/2021 Transcribed Document [facility] [place] [facility] [place] [address] ProviderDelvin MD [address] [place] [address] [phone] Social History Tobacco Use Types Packs/Day Years Used Date Smoking Tobacco: Never Assessed Comments Unknown Sex and Gender Information Value Date Recorded Sex Assigned at Not on file Legal Sex Female 4:32 PM CDT Gender Identity Not on file Sexual Orientation Not on file documented as of this encounter Miscellaneous Notes * Cerner Conversion Note - Delvin ProviderMD - 08/19/2021 7:30 AM CDT [facility] Main OR Preop Summary Primary Physician: NENA PEARSON MD-[facility] Finalized Date/Time: 08/19/21 07:37:55 Pt. Name: IRINA TAAMYO D.O.B./Sex: 1965 Female Med Rec #: [id number] Physician: VINCE BELLO MD Financial #: [id number] Pt. Type: I Room/Bed: [facility]/1 Admit/Disch: 08/11/21 21:21:00 - Institution: [facility] PreOp Case Times Entry 1 In Preop 08/19/21 05:49:00 Ready for Holding n/a Room Patient Ready for 08/19/21 06:35:00 Surgery Patient Out of Preop 08/19/21 07:33:00 Patient Out of n/a Holding Room Last Modified By: Merle Hicks Rn 08/19/21 07:37:50 [facility] PreOp Case Times Audit 08/19/21 07:37:50 Plastic Welder: MARITO Modifier: MFWARD <+> 1 Patient Out of Preop Finalized By: Merle Hicks Rn Document Signatures Signed By: Merle Hicks Rn 08/19/21 07:37 Electronically signed by Lanny [facility] Conversion Er Registrar Cerner at 03/09/2023 8:32 PM CDT documented in this encounter Plan of Treatment Not on file documented as of this encounter Visit Diagnoses Not on filedocumented in this encounter Care Teams Motion Picture Commentator Relationship Specialty Start Date End Date Reji Castro MD [address] [place] [id number] PCP - General Adolescent Medicine 10/02/22 documented as of this encounter
--- OUTSIDE RECORDS SUMMARY | 2025-05-30 12:58 | XMS_ITS | Encounter Summary ---
Author Organization [employer] ([place], [place], [place], [place]) Address [address] [place] [address] Care Team Providers Care Ski Topper Name Role Phone Reji Castro MD Primary Care Provider + [phone] Encounter Details Date Type Department Care Team (Late st Contact Info) Description 08/12/2021 Transcribed Document [facility] [place] [address] ProviderDelvin MD [address] [place] [address] 390211 Social History Tobacco Use Types Packs/Day Years [...] Author: CHELI BEASLEY MD-CAR Basic Information Primary Clerk Specialist: Dr. Delmar Geronimo Administrative Manager: MD Nestor Chief Complaint Rule out [...] She followed up that week with her Silk Spotter, Dr. Thapa, who aspirated purulence from the port. 10-15 min later, she was driving home and developed fever 103, chills, headache and body aches. Presented to [facility] where she was admitted for IV ABX [...] She presented for evaluation at [facility]. In the ER she was [...] Instructions Problem list: All Problems Amblyopia / 6907955086 / Confirmed Arthritis / 4374322 / Confirmed Atrial fibrillation / 16668721 / Confirmed AIHA (autoimmune hemolytic anemia) / 8011694749 / Confirmed Back pain / [id number] / Confirmed Bowel obstruction / 567826415 / Confirmed Bronchitis / 82208062 / Confirmed Cardiac arrhythmia / 1257926649 / Confirmed Cardiomyopathy / 934365754 / Confirmed COPD / 31163302 / Confirmed Diabetes mellitus / 185309337 / Confirmed Diabetes mellitus type II / 68632500 / Confirmed Diverticulosis / 2974292688 / Confirmed Edema / 183145505 / Confirmed Fibromyalgia / 19705373 / Confirmed frequent headache / Confirmed GERD - Gastro-esophageal reflux disease / 6925550647 / Confirmed Heart failure / 477261104 / Confirmed Heart valve / 156454699 / Confirmed Hepatomegaly / 028074862 / Confirmed High blood pressure / 57041377 / Confirmed History of obstructive sleep apnea / 95279631 / Confirmed Hyperlipidemia / 85927807 / Confirmed Anemia, iron deficiency / 166311446 / Confirmed Lazy eye / 018107546 / Confirmed Myocardial infarction / 74326855 / Confirmed neuropathy hands and feet / Confirmed Ovarian cyst / 537260333 / Confirmed Renal calculus / 164735790 / Confirmed Restless legs syndrome / 88222517 / Confirmed Thyroid disease / 775269550 / Confirmed Histories No education data available. Social & Psychosocial Habits Tobacco 12/18/2013 Tobacco Use Within Last Twelve Months No Smoking Status Former smoker Years of Tobacco Use 30 Month Tobacco Last Used quit 2005 Past Medical History: Active Atrial fibrillation (83685479) Bioprosthetic mitral valve replacement (021834690) Chronic kidney disease (3111990384) COPD - Chronic obstructive pulmonary disease (453557366) HLD - Hyperlipidemia (118822021) HTN - Hypertension (3425078849) Family History: Reviewed. Non-contributory. Procedure history: Replacement, mitral valve, with cardiopulmonary bypass (90301) on 01/19/2006 at 40 Years. left jaw pin. sternotomy. hernia repair, abdominal. sigmoid colon resection. Tendon sheath incision (eg, for trigger finger) (70906). jaw surgery, left. great toe surger, left. [...] of motion, Normal strength. Integumentary: Warm, Dry, [place]. Neurologic: Alert, Oriented. Psychiatric: Cooperative, Appropriate mood & affect. Review / Management AUG 12 00:22 L 134 L 98 H 69 / H 134 3.6 29 H 2.40 \ AUG 12 00:22 \ L 8.7 / 6.7 201 / L 28.3 \ Cardiac Markers (Current Encounter/Past 24 Hours) ProBNP 766 pg/mL RI 08/12/2021 01:12 Blood Gases (Current Encounter/Past 24 Hours) No Blood Gas Results Found (Past 24 Hours) Radiology Results (Last 48 hours) [id number] -- 08/11/2021 21:21 CR Chest 1 Vw [...] admission for coagulase negative staph bacteremia Admitted [facility] 07/12, Negative CHUCHO, TTE for [...] mechanical causes of hemolysis. Obtain records from [facility]. Check haptoglobin, LDH, reticulocyte count. Continue other current CV meds. Electronically signed by Lanny, [facility] Conversion Cloth Tester Cerner at 03/09/2023 8:33 PM CDT documented in this encounter Plan of Treatment Not on file documented as of this encounter Visit Diagnoses Not on filedocumented in this encounter Care Teams Ski Topper Relationship Specialty Start Date End Date Reji Castro MD [address] [place] [address] PCP - General Adolescent Medicine 10/02/22 documented as of this encounter
--- OUTSIDE RECORDS SUMMARY | 2025-05-30 12:58 | XMS_ITS | Encounter Summary ---
Author Organization [employer] ([place], [place], [place], [place]) Address [address] [place] [address] Care Team Providers Care Value Engineer Name Role Phone Reji Castro MD Primary Care Provider + [phone] Encounter Details Date Type Department Care Team (Late st Contact Info) Description 08/20/[address] [facility] [place] [address] ProviderDelvin MD [address] [place] [address] 193901 Social History Tobacco Use Types Packs/Day Years [...] # 0.38 x10(3)/uL (Low) 08/20/2021 07:38 EDT [place] % 7.9 % 08/20/2021 07:38 EDT [place] # 0.64 K/uL 08/20/2021 07:38 EDT Eos [...] 08/20/2021 15:16 EDT Electronically signed by [facility], [facility] Conversion Generator Repairer Cerner at 03/09/2023 8:31 PM CDT documented in this encounter Plan of Treatment Not on file documented as of this encounter Visit Diagnoses Not on filedocumented in this encounter Care Teams Value Engineer Relationship Specialty Start Date End Date Reji Castro MD [address] [place] [id number] PCP - General Adolescent Medicine 10/02/22 documented as of this encounter
--- OUTSIDE RECORDS SUMMARY | 2025-05-30 12:58 | XMS_ITS | Encounter Summary ---
Author Organization [employer] ([place], [place], [place], [place]) Address [address] [place] [address] Care Team Providers Care Meat Specialist Name Role Phone Reji Castro MD Primary Care Provider + [phone] Encounter Details Date Type Department Care Team (Late st Contact Info) Description 08/14/2021 Transcribed Document [facility] [place] Family Medicine [address] [place] [address] ProviderDelvin MD [address] [place] [phone] Social History Tobacco Use Types Packs/Day Years [...] Author: CHELI BEASLEY MD-CAR Basic Information Primary Perinatal Coordinator: Dr. Delmar Geronimo Consulting Intern: MD Nestor Subjective NAD Health Status Current [...] mL 700 mg 14 mL, IV Piggyback, [id number] famotidine 20 mg tab 20 mg 1 [...] of motion, Normal strength. Integumentary: Warm, Dry, [place]. Neurologic: Alert, Oriented. Psychiatric: Cooperative, Appropriate mood & affect. Results Review AUG 13 23:47 L 135 102 H 35 / H 114 4.2 29 H 1.80 \ SEP 22 23:47 \ L 8.1 / 5.5 206 / L 26.9 \ Cardiac Markers (Current Encounter/Past 24 Hours) CK 87 Units/Liter 08/13/2021 05:53 ProBNP 647 pg/mL [place] 08/14/2021 00:14 Radiology Results (Last 48 hours) [id number] -- 08/11/2021 21:21 CR Abdomen 1 Vw [...] appropriate per primary hosp service & primary sole stapler welt. Will sign-off, call if questions. RV w/ [...] filedocumented in this encounter Care Teams Meat Specialist Relationship Specialty Start Date End Date Reji Castro MD [address] [place] [address] PCP - General Adolescent Medicine 10/02/22 documented as of this encounter
--- OUTSIDE RECORDS SUMMARY | 2025-05-30 12:58 | XMS_ITS | Encounter Summary ---
Author Organization [employer] ([place], [place], [place], [place]) Address [address] [place] [address] Care Team Providers Care Asbestos Siding Mechanic Name Role Phone Reji Castro MD Primary Care Provider + [phone] Encounter Details Date Type Department Care Team (Late st Contact Info) Description 08/20/2021 Transcribed Document [facility] [place] Family Medicine [address] [place] [address] ProviderDelvin MD [address] [place] [address] [phone] Social History Tobacco Use Types Packs/Day Years [...] 08/20/2021 16:48 EDT Electronically signed by Lanny [facility] Conversion Strong Nitric Operator Cerner at 03/09/2023 8:32 PM CDT documented in this encounter Plan of Treatment Not on file documented as of this encounter Visit Diagnoses Not on filedocumented in this encounter Care Teams Asbestos Siding Mechanic Relationship Specialty Start Date End Date Reji Castro MD [address] [place] [address] PCP - General Adolescent Medicine 10/02/22 documented as of this encounter
--- OUTSIDE RECORDS SUMMARY | 2025-05-30 12:58 | XMS_ITS | Encounter Summary ---
Author Organization [employer] ([place], [place], [place], [place]) Address [address] [place] [address] Care Team Providers Care Panel Gluer Name Role Phone Reji Castro MD Primary Care Provider + [phone] Encounter Details Date Type Department Care Team (Late st Contact Info) Description 08/12/2021 Transcribed Document [facility] Family Medicine [facility] [place] [address] ProviderDelvin MD [address] [place] [address] [phone] Social History Tobacco Use Types Packs/Day Years [...] 08/12/2021 5:00 EDT by Morelia Jose [facility] Unit Coord Height and Weight, Routine Routine Weight Source : Standing scale Routine Weight Entry Format : [place] Routine Weight, Pounds : 223 lb Routine Weight, Ounces : 4 oz Routine Weight Calculation : 101.48 kg Height Source : Stated Height Entry Format : [place] Height, Feet : 5 ft Height, Inches : 4 Inch Clinical Height : 162.56 cm Body Surface Area (BSA), Routine : 2.05 m2 Body Mass Index (BMI), Routine : 38.4 kg/m2 Morelia Jose Hospitality Housekeeper-Health Unit [facility] - 08/12/2021 5:18 EDT Electronically signed by Lanny, [facility] Conversion Print Finisher Cerner at 03/09/2023 8:49 PM CDT documented in this encounter Plan of Treatment Not on file documented as of this encounter Visit Diagnoses Not on filedocumented in this encounter Care Teams Panel Gluer Relationship Specialty Start Date End Date Reji Castro MD [address] [place] [address] PCP - General Adolescent Medicine 10/02/22 documented as of this encounter
--- OUTSIDE RECORDS SUMMARY | 2025-05-30 12:58 | XMS_ITS | Encounter Summary ---
Author Organization [employer] ([place], [place], [place], [place]) Address [address] [place] [address] Care Team Providers Care Ambulatory Nurse Name Role Phone Reji Castro MD Primary Care Provider + [phone] Encounter Details Date Type Department Care Team (Late st Contact Info) Description 08/25/2021 Transcribed Document [facility] [place] [facility] [place] [address] ProviderDelvin MD [address] [place], [place] [phone] Social History Tobacco Use Types Packs/Day Years [...] Spiritual : 2 Referral Reason Comment : HAND TIER in Room 454. Ministry Provided to : Patient Spiritual/Emotional Acuity : Medium Spiritual Framework : Integrated, provides strength/resource Active in a Spiritism/[facility] Group : Yes Active in a Spiritism/[facility] Group Comment : [facility] [place]. Yazdanism Preference : Islam Spiritual Leader Requested : No Denominational Sacrament of the Sick/Anointing Needed : No Communications Associate Follow-up Needed : No Rome Burgos Chaplain-Non Cert - 08/25/2021 10:13 EDT Spiritual Assessment Patient's Community/Relationship : Strength in patient's life Supportive/Healthy Relationships : Yes Supportive Yazdanism Community : Yes Patient's Sense of Meaning [...] : Yes Spiritual Assessment Comment/Summary Points : HAND TIER. PT is experiencing significant chest pain. She was desirous of prayer, explaining her involvement with her Islam sabianism as well. One of her daugthers is a Orthopedic Surgery Nurse here at [employer] [facility]. She reported she is living in a rented house in [facility] as her home in [place]. Communications Associate provided pastoral presence, support, and prayer. Family; two daughters, two sisters, one brother, and their families. Spirital Assessment Comment/Summary Report : SPIRITUAL ASSESSMENT COMMENT/SUMMARY No qualifying data available. Rome Burgos Chaplain-Non Cert - 08/25/2021 10:13 EDT Interventions Advance Directive Information Provided : No Emotional Support : Empathic/Engaged listening, Established trust, Feelings expressed, Hope strengths identified, Meaning strengths identified, Relationship strengths identified Spiritual and Yazdanism : Prayer shared Rome Burgos Chaplain-Non Cert - 08/25/2021 10:13 EDT documented in this encounter Plan of Treatment Not on file documented as of this encounter Visit Diagnoses Not on filedocumented in this encounter Care Teams Ambulatory Nurse Relationship Specialty Start Date End Date Reji aCstro MD [address] [place] [id number] PCP - General Adolescent Medicine 10/02/22 documented as of this encounter
--- OUTSIDE RECORDS SUMMARY | 2025-05-30 12:58 | XMS_ITS | Encounter Summary ---
Author Organization [employer] ([place], [place], [place], [place]) Address [address] [place] [address] Care Team Providers Care Campaign Assistant Name Role Phone Reji Saldaña MD Primary Care Provider + [phone] Encounter Details Date Type Department Care Team (Late st Contact Info) Description 08/14/2021 Transcribed Document [place] Family [place] [address] ProviderDelvin MD [address] [place] [address] [phone] Social History Tobacco Use Types Packs/Day Years [...] On: 08/14/2021 16:00 EDT by ALFREDO SEQUEIRA, JEREMIAH-Machine Cleaner Initial Assessment I Previously Documented Living Environment [...] Patient's Home Caregiver Medical Durable Power of Major Case Detective Name : No Legal Guardian : No ALFREDO SEQUEIRA RN-Machine Cleaner - 08/15/2021 8:27 EDT Initial Assessment II Sensory and Motor Deficits : None Current Home Treatments and Equipment : None ALFREDO SEQUEIRA RN-Machine Cleaner - 08/15/2021 8:27 EDT Discharge Needs I Anticipated Discharge Date : 08/16/2021 EDT Anticipated Discharge To, CM : Home with home health, Home with infusion therapy Current Home Treatment/Equipment : Current Home Treatment/Equipment No qualifying data available. Post Acute/Home Treatments : None Documentation Status Complete : Yes ALFREDO SEQUEIRA RN-Machine Cleaner - 08/15/2021 8:27 EDT Discharge Needs II Professional Skilled Services : Professional Skilled Services No qualifying data available. Needs Assistance with Transportation : No Discharge Options Discussed with Patient : DME, Home Health, Short term rehabilitation ALFREDO SEQUEIRA RN-Machine Cleaner - 08/15/2021 8:27 EDT Narrative Note Historical Narrative Note : rrs low boost 5 patient was admitted for staph infection /port removal . consults to neph, surg,ID. CHUCHO negative . patient 56 years old lives alone and is independent. patient face sheet address is wrong now address is : [address] [employer] . Prior Knowledge. patient denied need for dme. possible need for hh she thinks [facility] is the only one in her area. patient states she might need 4 weeks IV abx . patient is agreeable to hh and iv abx at home . cm will follow ALFREDO SEQUEIRA RN-Machine Cleaner - 08/15/21 08:39:27 Narrative Note : rrs low boost 5 patient was admitted for staph infection /port removal . consults to neph, surg,ID. CHUCHO negative . patient 56 years old lives alone and is independent. patient face sheet address is wrong now address is : [address] [employer]. patient denied need for dme. possible need for hh she thinks [facility] is the only one in her area. patient states she might need 4 weeks IV abx . patient is agreeable to hh and iv abx at home . family will transport . cm will follow ALFREDO SEQUEIRA, RN-Machine Cleaner - 08/15/2021 8:40 EDT Electronically signed by Lanny [facility] Conversion Change Person Cerner at 03/09/2023 8:51 PM CDT documented in this encounter Plan of Treatment Not on file documented as of this encounter Visit Diagnoses Not on filedocumented in this encounter Care Teams Campaign Assistant Relationship Specialty Start Date End Date Reji Saldaña MD [address] [place] [address] PCP - General Adolescent Medicine 10/02/22 documented as of this encounter
--- OUTSIDE RECORDS SUMMARY | 2025-05-30 12:58 | XMS_ITS | Encounter Summary ---
Author Organization [employer] ([place], [place], [place], [place]) Address [address] [place] [address] Care Team Providers Care Hydrogenation Operator Name Role Phone Reji Castro MD Primary Care Provider [phone] Encounter Details Date Type Department Care Team (Late st Contact Info) Description 08/12/2021 Transcribed Document [facility] [place] Family Medicine [address] [place] [address] ProviderDelvin MD [address] [place] [address] [phone] Social History Tobacco Use Types Packs/Day Years [...] on filedocumented in this encounter Care Teams Hydrogenation Operator Relationship Specialty Start Date End Date Reji Castro MD [address] [place] [address] PCP - General Adolescent Medicine 10/02/22 documented as of this encounter
--- OUTSIDE RECORDS SUMMARY | 2025-05-30 12:58 | XMS_ITS | Encounter Summary ---
Author Organization [employer] ([place], [place], [place], [place]) Address [address] [place] [address] Care Team Providers Care Composite Bond Technician Name Role Phone Reji Castro MD Primary Care Provider + [phone] Encounter Details Date Type Department Care Team (Late st Contact Info) Description 08/25/2021 Transcribed Document [facility] [place] Family Medicine [facility] [place] [address] ProviderDelvin MD [address] [place] [address] [phone] Social History Tobacco Use Types Packs/Day Years [...] cefTRIAXone: 2 Gram, 100 mL/Hr, IV Piggyback, [id number] diphenhydrAMINE: 25 mg, Oral, Q6H, PRN: Itching [...] Oral, BID cefTRIAXone 2 Gram, IV Piggyback, [id number] citalopram 20 mg tab 40 mg 2 [...] Bioprosthetic mitral valve replacement / SNOMED CT 835156825 / Confirmed Chronic kidney disease / SNOMED CT 4061553425 / Confirmed COPD - Chronic obstructive pulmonary disease / SNOMED CT 336312450 / Confirmed History of obstructive sleep apnea / IMO 48126092 / Confirmed HLD - Hyperlipidemia / SNOMED CT 470514479 / Confirmed HTN - Hypertension / SNOMED CT 3604404680 / Confirmed Canceled: Atrial fibrillation / SNOMED CT 39016747, Active Problems (25) AIHA (autoimmune hemolytic anemia) [...] on filedocumented in this encounter Care Teams Composite Bond Technician Relationship Specialty Start Date End Date Reji Castro MD [address] [place] [address] PCP - General Adolescent Medicine 10/02/22 documented as of this encounter
--- OUTSIDE RECORDS SUMMARY | 2025-05-30 12:58 | XMS_ITS | Encounter Summary ---
Author Organization [employer] ([place], [place], [place], [place]) Address [address] [place] [address] Care Team Providers Care Sports Instructor Name Role Phone Reji Castro MD Primary Care Provider + [phone] Encounter Details Date Type Department Care Team (Late st Contact Info) Description 08/26/2021 Transcribed Document [facility] [place] [facility] [place] [address] ProviderDelvin MD [address] [place] [address] [phone] Social History Tobacco Use Types Packs/Day Years [...] cefTRIAXone: 2 Gram, 100 mL/Hr, IV Piggyback, [id number] diphenhydrAMINE: 25 mg, Oral, Q6H, PRN: Itching [...] Oral, BID cefTRIAXone 2 Gram, IV Piggyback, [id number] citalopram 20 mg tab 40 mg 2 [...] Bioprosthetic mitral valve replacement / SNOMED CT 190764705 / Confirmed Chronic kidney disease / SNOMED CT 4215483963 / Confirmed COPD - Chronic obstructive pulmonary disease / SNOMED CT 788564009 / Confirmed History of obstructive sleep apnea / IMO 90729746 / Confirmed HLD - Hyperlipidemia / SNOMED CT 528034630 / Confirmed HTN - Hypertension / SNOMED CT 5347174565 / Confirmed Canceled: Atrial fibrillation / SNOMED CT 64168826, Active Problems (25) AIHA (autoimmune hemolytic anemia) [...] 29.0 \ Radiology Results (Last 48 hours) [id number] -- 08/11/2021 21:21 CR Chest 1 Vw [...] Hold home meds SSI Depression Celexa Pain [place] 10 mg every 6 hours as needed CODE STATUS. Full code Dispo: H/H stable, neg trops, clinically better need therapeutic inr for discharge, pharm managing. hopefully in am Time spent 26 minutes documented in this encounter Plan of Treatment Not on file documented as of this encounter Visit Diagnoses Not on filedocumented in this encounter Care Teams Sports Instructor Relationship Specialty Start Date End Date Reji Castro MD [address] [place] [address] PCP - General Adolescent Medicine 10/02/22 documented as of this encounter
--- OUTSIDE RECORDS SUMMARY | 2025-05-30 12:58 | XMS_ITS | Encounter Summary ---
Author Organization [employer] ([place], [place], [place], [place]) Address [address] [place] [address] Care Team Providers Care Lcsw Name Role Phone Reji Castro MD Primary Care Provider + [phone] Encounter Details Date Type Department Care Team (Late st Contact Info) Description 08/12/2021 Transcribed Document [facility] [place] Family Medicine [facility] [place] [address] ProviderDelvin MD [address] [place] [address] [phone] Social History Tobacco Use Types Packs/Day Years [...] Vancomycin HPI: 56 y/o F presenting to [facility] [...] Encounter/Past 24 Hours) Creatinine Level 2.40 mg/dL [place] 08/12/2021 01:05 Bun/Creatinine 28.8 [place] 08/12/2021 01:05 Est. CrCl: 35 mL/min Intake [...] questions. Thank you, Andrea Moraes, PharmD PGY1 Scraper Burrer Pager: [phone], Ext. [phone] Electronically signed by Lanny [facility] Conversion Liquid Hydrogen Plant Operator Cerner at 03/09/2023 8:45 PM CDT documented in this encounter Plan of Treatment Not on file documented as of this encounter Visit Diagnoses Not on filedocumented in this encounter Care Teams Lcsw Relationship Specialty Start Date End Date Reji Castro MD [address] [place] [address] PCP - General Adolescent Medicine 10/02/22 documented as of this encounter
--- OUTSIDE RECORDS SUMMARY | 2025-05-30 12:58 | XMS_ITS | Encounter Summary ---
Author Organization [employer] ([place], [place], [place], [place]) Address [address] [place] [address] Care Team Providers Care Console Assembler Name Role Phone Reji Castro MD Primary Care Provider + [phone] Encounter Details Date Type Department Care Team (Late st Contact Info) Description 08/25/2021 Transcribed Document [facility] [place] [facility] [place] [address] ProviderDelvin MD [address] [place] [address] [phone] Social History Tobacco Use Types Packs/Day Years [...] than 8. she tells me that her inspector rubber stamp die has recommended she stay above 8 for [...] cefTRIAXone: 2 Gram, 100 mL/Hr, IV Piggyback, [id number] diphenhydrAMINE: 25 mg, Oral, Q6H, PRN: Itching [...] Oral, BID cefTRIAXone 2 Gram, IV Piggyback, [id number] citalopram 20 mg tab 40 mg 2 [...] Bioprosthetic mitral valve replacement / SNOMED CT 449010661 / Confirmed Chronic kidney disease / SNOMED CT 0052632763 / Confirmed COPD - Chronic obstructive pulmonary disease / SNOMED CT 453990406 / Confirmed History of obstructive sleep apnea / IMO 09395846 / Confirmed HLD - Hyperlipidemia / SNOMED CT 918852609 / Confirmed HTN - Hypertension / SNOMED CT 7271772328 / Confirmed Canceled: Atrial fibrillation / SNOMED CT 90484048, Active Problems (25) AIHA (autoimmune hemolytic anemia) [...] 26.5 \ Radiology Results (Last 48 hours) [id number] -- 08/11/2021 21:21 CR Chest 1 Vw [...] Hold home meds SSI Depression Celexa Pain [place] 10 mg every 6 hours as needed CODE STATUS. Full code Dispo: H/H stable, will transfuse one unit prbcs to reach goal hgb f/u trop need therapeutic inr for discharge, pharm managing Time spent 26 minutes Electronically signed by Lanny, [facility] Conversion Classroom Technology Technician Cerner at 03/09/2023 8:51 PM CDT documented in this encounter Plan of Treatment Not on file documented as of this encounter Visit Diagnoses Not on filedocumented in this encounter Care Teams Console Assembler Relationship Specialty Start Date End Date Reji Castro MD [address] [place] [id number] PCP - General Adolescent Medicine 10/02/22 documented as of this encounter
--- OUTSIDE RECORDS SUMMARY | 2025-05-30 12:58 | XMS_ITS | Encounter Summary ---
Author Organization [employer] ([place], [place], [place], [place]) Address [address] [place] [address] Care Team Providers Care Facilities Mechanical Design Engineer Name Role Phone Reji Castro MD Primary Care Provider + [phone] Encounter Details Date Type Department Care Team (Late st Contact Info) Description 08/14/2021 Transcribed Document [facility] [place] [place] [facility] [place] [address] ProviderDelvin MD [address] [place] [address] [phone] Social History Tobacco Use Types Packs/Day Years [...] # 0.71 x10(3)/uL (Low) 08/13/2021 23:47 EDT Tucker % 10.6 % (High) 08/13/2021 23:47 EDT Tucker # 0.58 K/uL 08/13/2021 23:47 EDT Eos [...] (Low) 08/13/2021 18:40 EDT Electronically signed by [facility] Conversion Engineer Specialist Cerner at 03/09/2023 8:59 PM CDT documented in this encounter Plan of Treatment Not on file documented as of this encounter Visit Diagnoses Not on filedocumented in this encounter Care Teams Facilities Mechanical Design Engineer Relationship Specialty Start Date End Date Reji Castro MD [address] [place] [id number] PCP - General Adolescent Medicine 10/02/22 documented as of this encounter
--- OUTSIDE RECORDS SUMMARY | 2025-05-30 12:58 | XMS_ITS | Encounter Summary ---
Author Organization [facility] ([place], [place], [place], [place]) Address [address] [place] [address] Care Team Providers Care Plating Tank Operator Name Role Phone Reji Castro MD Primary Care Provider + [phone] Encounter Details Date Type Department Care Team (Late st Contact Info) Description 08/20/2021 Transcribed Document [facility] [place] [facility] [place] [address] ProviderDelvin MD [address] [place] [address] [phone] Social History Tobacco Use Types Packs/Day Years [...] HPI: 56 y/o F presenting to [facility] with history of COPD, atrial [...] cefTRIAXone: 2 Gram, 100 mL/Hr, IV Piggyback, [id number]. citalopram: 40 mg, Oral, Daily. diphenhydrAMINE: 50 [...] questions. Thank you, Andrea Moraes, PharmD PGY1 Clamshell Operator Pager: [phone], Ext. [phone] Electronically signed by Lanny [facility] Conversion Entry Driver Operator Cerner at 03/09/2023 8:58 PM CDT documented in this encounter Plan of Treatment Not on file documented as of this encounter Visit Diagnoses Not on filedocumented in this encounter Care Teams Plating Tank Operator Relationship Specialty Start Date End Date Reji Castro MD [address] [place] [address] PCP - General Adolescent Medicine 10/02/22 documented as of this encounter
--- OUTSIDE RECORDS SUMMARY | 2025-05-30 12:58 | XMS_ITS | Encounter Summary ---
Author Organization [employer] ([place], [place], [place], [place]) Address [address] [place] [address] Care Team Providers Care Rn Gynecology Name Role Phone Reji Castro MD Primary Care Provider + [phone] Encounter Details Date Type Department Care Team (Late st Contact Info) Description 08/25/2021 Transcribed Document [facility] [place] [address] [place] [address] ProviderDelvin MD [address] [place], [place] [phone] Social History Tobacco Use Types Packs/Day Years [...] Event : Transfer to telemetry Rapid Response Rn Gynecology #1 : ROBERTO KOHLI RN Rapid Response Rn Gynecology #2 : ROBERTO CAMARA, CARDIAC RN ROBERTO KOHLI RN - 08/25/2021 9:33 EDT [...] Chronic kidney disease, unspecified Heart failure, unspecified parts 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
--- OUTSIDE RECORDS SUMMARY | 2025-05-30 12:58 | XMS_ITS | Encounter Summary ---
Author Organization [employer] ([place], [place], [place], [place]) Address [address] [place] [address] Care Team Providers Care Pediatric Np Name Role Phone Reji Castro MD Primary Care Provider + [phone] Encounter Details Date Type Department Care Team (Late st Contact Info) Description 08/12/2021 Transcribed Document [facility] [place] [facility] [place] [address] ProviderDelvin MD [address] [place] [address] [phone] Social History Tobacco Use Types Packs/Day Years [...] on filedocumented in this encounter Care Teams Pediatric Np Relationship Specialty Start Date End Date Reji Castro MD [address] [place] [address] PCP - General Adolescent Medicine 10/02/22 documented as of this encounter
--- OUTSIDE RECORDS SUMMARY | 2025-05-30 12:58 | XMS_ITS | Encounter Summary ---
Author Organization [employer] ([place], [place], [place], [place]) Address [address] [place] [address] Care Team Providers Care Department Of Mathematics Chair Name Role Phone Reji Castro MD Primary Care Provider + [phone] Encounter Details Date Type Department Care Team (Late st Contact Info) Description 08/19/2021 Transcribed Document [facility] [place] Family Medicine [address] [place] [address] ProviderDelvin MD [address] [place] [address] [phone] Social History Tobacco Use Types Packs/Day Years [...] on filedocumented in this encounter Care Teams Department Of Mathematics Chair Relationship Specialty Start Date End Date Reji Castro MD [address] [place] [address] PCP - General Adolescent Medicine 10/02/22 documented as of this encounter
--- OUTSIDE RECORDS SUMMARY | 2025-05-30 12:58 | XMS_ITS | Encounter Summary ---
Author Organization [employer] ([place], [place], [place], [place]) Address [address] [place] [address] Care Team Providers Care Technical Sales Support Manager Name Role Phone Reji Castro MD Primary Care Provider + [phone] Encounter Details Date Type Department Care Team (Late st Contact Info) Description 08/19/2021 Transcribed Document [facility] [place] [address] ProviderDelvin MD [address] [place] [address] [phone] Social History Tobacco Use Types Packs/Day Years [...] filedocumented in this encounter Care Teams Technical Sales Support Manager Relationship Specialty Start Date End Date Reji Castro MD [address] [place] [address] PCP - General Adolescent Medicine 10/02/22 documented as of this encounter
--- OUTSIDE RECORDS SUMMARY | 2025-05-30 12:58 | XMS_ITS | Encounter Summary ---
Author Organization [employer] ([place], [place], [place], [place]) Address [address] [place] [address] Care Team Providers Care Bottle Inspector Name Role Phone Reji Castro MD Primary Care Provider + [phone] Encounter Details Date Type Department Care Team (Late st Contact Info) Description 08/19/2021 Transcribed Document [facility] [place] Family Medicine [facility] [place] [address] ProviderDelvin MD [address] [place] [address] [phone] Social History Tobacco Use Types Packs/Day Years [...] 15:34 EDT by MADINA LOVETT RN - Profiling Machine Setup OperatorDigital Circuit Designer Progress Note Discharge Arrangements : Patient [...] Rounds? : Yes MADINA LOVETT RN - Profiling Machine Setup Operator - 08/19/2021 15:34 EDT Narrative Progress [...] will need home health and lvies in [place]. [facility] home [facility] is a possibility. Historical [...] will need home health and lives in [place]. [facility] home health is a possibility. CM will continue to follow. DCP: MADINA LOVETT RN - Profiling Machine Setup Operator - 08/18/21 15:47:49 (late entry from [...] and send referrals as appropriate. JULIO STEWART, JEREMIAH-Profiling Machine Setup Operator ED - 08/18/21 10:38:39 MADINA LOVETT, RN - Profiling Machine Setup Operator - 08/19/2021 15:34 EDT documented in this encounter Plan of Treatment Not on file documented as of this encounter Visit Diagnoses Not on filedocumented in this encounter Care Teams Bottle Inspector Relationship Specialty Start Date End Date Reji Castro MD [address] [place] [id number] PCP - General Adolescent Medicine 10/02/22 documented as of this encounter
--- OUTSIDE RECORDS SUMMARY | 2025-05-30 12:59 | XMS_ITS | Encounter Summary ---
Author Organization [employer] ([place], [place], [place], [place]) Address [address] [place] [address] Care Team Providers Care Head Of Ethics And Compliance Name Role Phone Reji Castro MD Primary Care Provider + [phone] Encounter Details Date Type Department Care Team (Late st Contact Info) Description 08/27/2021 Transcribed Document [facility] [place] [address] [place] [address] ProviderDelvin MD [address] [place] [address] [phone] Social History Tobacco Use Types Packs/Day Years [...] implanted port has two main parts: ??? [place]. The reservoir is the part where a [...] water are not available, use alcohol-based hand oracle applications developer. ? Change your dressing as told by [...] provider. Document Revised: 03/01/2020 Document Reviewed: 12/11/2017 [employer] Patient Education ? 2020 [employer] Cardiovascular Atrial Fibrillation Atrial fibrillation is [...] of the heart. ??? An ambulatory cardiac monitor technician to record your heart's activity for a [...] provider. Document Revised: 05/01/2020 Document Reviewed: 05/01/2020 [employer] Patient Education ? 2020 [employer]. Caregiving Implanted Port Home Guide An implanted [...] implanted port has two main parts: ??? [place]. The reservoir is the part where a [...] water are not available, use alcohol-based hand oracle applications developer. ? Change your dressing as told by [...] provider. Document Revised: 03/01/2020 Document Reviewed: 12/11/2017 [employer] Patient Education ? 2020 [employer] Endocrinology Diabetes Mellitus and Nutrition, Adult [...] Carrots. Green beans. Tomatoes. Peppers. Onions. Cucumbers. [place] sprouts. Grains Whole grains, such as whole-wheat [...] Do I need to meet with a educator senior clinical? Do I need to meet with a dietitian? What number can I call if I have questions? When are the best times to check my blood glucose? Where to find more information: ??? [place] Diabetes Association: diabetes.org ??? Academy of Nutrition and Dietetics: www.eatright.org ??? National [place] of Diabetes and Digestive and Kidney Diseases: [...] provider. Document Revised: 10/15/2020 Document Reviewed: 10/15/2020 [employer] Patient Education ? 2020 [employer] Hematology Warfarin Coagulopathy Warfarin coagulopathy refers [...] stopping any new medicines. Many prescription and cows-nub-jrklywe medicines can interfere with warfarin. This includes pmmg-ioz-druaypb vitamins, dietary supplements, herbal medicines, and pain [...] that you work with a diet and dairy nutritionist (dietitian). ??? Vitamin K makes warfarin [...] Preventing bleeding and injury ??? Some common inci-dpr-tnxclyw medicines and supplements may increase the risk [...] diet. ??? You start or stop any uakq-hav-zaqegkq medicine, prescription medicine, or dietary supplement. ??? [...] provider. Document Revised: 10/21/2018 Document Reviewed: 01/26/2018 [employer] Patient Education ? 2020 [employer] Infectious Disease Bacteremia, Adult Bacteremia is [...] these instructions at home: Medicines ??? Take vxyj-voi-sohhlxx and prescription medicines only as told by [...] and water are not available, use hand oracle applications developer. ??? You should wash your hands: ? [...] care provider. ??? Practice good oral hygiene. [place] your teeth two times a day, and [...] provider. Document Revised: 03/29/2020 Document Reviewed: 03/29/2020 [employer] Patient Education ? 2020 [employer]. Nephrology Acute Kidney Injury, Adult Acute kidney [...] these instructions at home: Medicines ??? Take gsue-buf-eiuqyew and prescription medicines only as told by [...] important. Where to find more information ??? [place] Association of Kidney Patients: www.aakp.org ??? National Kidney Foundation: www.kidney.org ??? [place] Kidney Fund: www.akfinc.org ??? [employer] Rehabilitation [...] provider. Document Revised: 09/17/2020 Document Reviewed: 09/17/2020 [employer] Patient Education ? 2020 [employer]. Chronic Kidney Disease, Adult Chronic kidney disease [...] these instructions at home: Medicines ??? Take vkdc-ofv-euuuutn and prescription medicines only as told by [...] provider. Document Revised: 10/21/2018 Document Reviewed: 12/13/2017 [employer] Patient Education ? 2020 [employer]. Pharmacology Vitamin K Foods and Warfarin Warfarin [...] before making changes. ??? Work with a dairy nutritionist (dietitian) to develop a meal plan that works best for you. What foods are high in vitamin K? Foods that are high in vitamin K contain more than 100 mcg (micrograms) per serving. These include: ??? Broccoli (cooked from fresh) ? ? cup (78 g) has 110 mcg. ??? [place] sprouts (cooked from fresh) ? ? cup [...] cup (90 g) has 444 mcg. ??? Haitian chard (cooked from fresh) ? ? cup [...] cup (54 g) has 8 mcg. ??? [place] with peel (raw) ? ? cup (52 g) has 9 mcg. ??? Grapes ? ? cup (76 g) has 12 mcg. ??? [place] ? 1 medium (207 g) has 9 [...] provider. Document Revised: 08/27/2020 Document Reviewed: 08/27/2020 [employer] Patient Education ? 2020 [employer] Aspirin and Your Heart Aspirin is [...] The two forms of aspirin are: ? Gbs-xhknwap-ttoyiq.This type of aspirin does not have a coating and is absorbed quickly. This type of aspirin also comes in a chewable form. ? Enteric-coated. This type of aspirin has a coating that releases the medicine very slowly. Enteric-coated aspirin might cause less stomach upset than bbx-nqhnctc-nhhtqz aspirin. This type of aspirin should not [...] these instructions at home Medicines ??? Take uusl-aat-vdiikhs and prescription medicines only as told by [...] Where to find more information ??? The [place] Heart Association: www.heart.org Contact a health care [...] in this encounter Care Teams Head Of Ethics And Compliance Relationship Specialty Start Date End Date Reji Castro MD [address] [place] [id number] PCP - General Adolescent Medicine 10/02/22 documented as of this encounter
--- OUTSIDE RECORDS SUMMARY | 2025-05-30 12:59 | XMS_ITS | Encounter Summary ---
Author Organization [employer] ([place], [place], [place], [place]) Address [address] [place] [address] Care Team Providers Care Correctional Facility Psychiatrist Name Role Phone Reji Castro MD Primary Care Provider + [phone] Encounter Details Date Type Department Care Team (Late st Contact Info) Description 08/21/2021 Transcribed Document [facility] [place] [address] [place] [address] ProviderDelvin MD [address] [place] [address] [phone] Social History Tobacco Use Types Packs/Day Years [...] 15:08 EDT by MADINA LOVETT RN - Double Cut SawyerSupport Coordinator Progress Note Discharge Arrangements : Patient Post-Acute [...] Rounds? : Yes MADINA LOVETT RN - Double Cut Sawyer - 08/21/2021 15:08 EDT Narrative Progress Note [...] also faxed order for home health to [facility] which the patient states she has used [...] is at a therapeutic level per at [facility]. Patient will need IV rocephin until 09/08. Patient will need home health and says she has used [facility] in the past. CM will refer her to them after final antibiotic order is placed. DCP: home with home health MADINA LOVETT RN - Double Cut Sawyer - 08/20/21 13:35:46 RRS Low Boost 5 [...] will need home health and lvies in [place]. [facility] home health is a possibility. MADINA LOVETT RN - Double Cut Sawyer - 08/19/21 15:40:22 RRS Low Boost 5 [...] will need home health and lives in [place]. [facility] home health is a possibility. CM will continue to follow. DCP: MADINA LOVETT, RN - Double Cut Sawyer - 08/18/21 15:47:49 (late entry from 08/15-) [...] and send referrals as appropriate. JULIO STEWART, RN-Double Cut Sawyer ED - 08/18/21 10:38:39 MADINA LOVETT, JEREMIAH - Double Cut Sawyer - 08/21/2021 15:08 EDT Electronically signed by Lanny [facility] Conversion Return To Vendor Cerner at 03/09/2023 8:32 PM CDT documented in this encounter Plan of Treatment Not on file documented as of this encounter Visit Diagnoses Not on filedocumented in this encounter Care Teams Correctional Facility Psychiatrist Relationship Specialty Start Date End Date Reji Castro MD [address] [place] [id number] PCP - General Adolescent Medicine 10/02/22 documented as of this encounter
--- OUTSIDE RECORDS SUMMARY | 2025-05-30 12:59 | XMS_ITS | Encounter Summary ---
Author Organization [employer] ([place], [place], [place], [place]) Address [address] [place] [address] Care Team Providers Care Habilitation Specialist Name Role Phone Reji Castro MD Primary Care Provider + [phone] Encounter Details Date Type Department Care Team (Late st Contact Info) Description 08/11/2021 Transcribed Document [facility] [place] [address] ProviderDelvin MD [address] [place] [address] [phone] Social History Tobacco Use Types Packs/Day Years [...] you, Noy Garrett, PharmD PGY-1 Resident Pager #[phone] Electronically signed by Lanny, [facility] Conversion Shipping And Receiving Associate Cerner at 03/09/2023 8:57 PM CDT documented in this encounter Plan of Treatment Not on file documented as of this encounter Visit Diagnoses Not on filedocumented in this encounter Care Teams Habilitation Specialist Relationship Specialty Start Date End Date Reji Castro MD [address] [place] [address] PCP - General Adolescent Medicine 10/02/22 documented as of this encounter
--- OUTSIDE RECORDS SUMMARY | 2025-05-30 12:59 | XMS_ITS | Encounter Summary ---
Author Organization [facility] ([place], [place], [place], [place]) Address [address] [place] [address] Care Team Providers Care Gas Cutter Name Role Phone Reji Tovar MD Primary Care Provider + [phone] Encounter Details Date Type Department Care Team (Late st Contact Info) Description 08/27/2021 Transcribed Document [facility] [place] Family Medicine [address] [place] [address] ProviderDelvin MD [address] [place] [address] Social History Tobacco Use Types Packs/Day [...] MD - 08/27/2021 1:31 PM CDT [facility] [place] [address] IRINA TAMAYO :1965 Visit Time:08/11/2021 Your Visit Summary Your Care Team Admitting Physician - VINCE BELLO MD Attending Physician - FAIZA YOUSSEF DO-INT Primary Care Physician - DEREK ROBISON DR Referring Physician - VINCE BELLO MD Your Diagnosis Bacteremia Acute kidney injury superimposed on chronic kidney disease, Acute kidney injury CHF with unknown LVEF Atrial fibrillation 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 Sawyer's office directly. Where: [address] [facility] [address] [place] [address]- Follow Up with LISA RICKETTS When 09/03/2021 10:45 AM EDT Comments Hospital follow up appointment has been made. Please arrive 15 minutes early to the appointment. If you need to reschedule, please contact [facility] directly. Where: [address] [facility] [address] [place] [address]- Business (1) Follow Up with NENA PEARSON [facility] When Within 1 week Comments [facility] will contact you with appointment date and time. Where: [address] [facility] [address] [place] [address] Follow Up with REJI TOVAR ([facility] When Within 5 to 7 days Comments [facility] will contact you with appointment date and time. Where: [address] [place] [address]- Follow Up with JERRELL GONZALEZ When Within 2 weeks Comments [facility] will contact you with appointment date and time. Where: Warfarin Instructions Indication for Warfarin Anticoagulation: Atrial fibrillation Indication for Warfarin Anticoagulation: Atrial fibrillation Warfarin Anticoagulation Disposition: Continuation of pre-hospital treatment Warfarin Anticoagulation Disposition: Continuation of pre-hospital treatment Duration Warfarin Therapy, Chcf: Yes Target INR: 2.5 - 3.5 Physician [...] Dose REDUCTION to 25mg daily Pickup at [facility] spironolactone (spironolactone 25 mg oral tablet) 1 Tablet(s) Oral Every Day Please note: Dose REDUCTION to 1 tablet daily warfarin (Coumadin 4 mg oral tablet) 2 Tablet(s) Oral Every Day Please note: Dose INCREASE Pickup at [facility] acetaminophen-oxyCODONE (Percocet 10/ 325 oral [...] Drop(s) Eyes Both Every Day Pharmacy Information [facility]: [address] [place] [address] [phone] Take your medications faithfully. Do NOT skip [...] these instructions at home: Medicines ??? Take dgag-utf-jduytgi and prescription medicines only as told by [...] and water are not available, use hand spinner concrete pipe. ??? You should wash your hands: ? [...] care provider. ??? Practice good oral hygiene. [place] your teeth two times a day, and [...] provider. Document Revised: 03/29/2020 Document Reviewed: 03/29/2020 [employer] Patient Education ?? 2020 [employer]. Warfarin Coagulopathy Warfarin coagulopathy refers to bleeding [...] stopping any new medicines. Many prescription and srzh-qzs-fqjrclc medicines can interfere with warfarin. This includes vuii-gil-kturhxe vitamins, dietary supplements, herbal medicines, and pain [...] you work with a diet and nutrition helper (dietitian). ??? Vitamin K makes warfarin less [...] Preventing bleeding and injury ??? Some common zvuz-bbl-hbsvkji medicines and supplements may increase the risk [...] diet. ??? You start or stop any zctk-tmq-zjgdewp medicine, prescription medicine, or dietary supplement. ??? [...] Reviewed: 01/26/2018 Elsevier Patient Education ?? 2020 [employer]. Vitamin K Foods and Warfarin Warfarin [...] making changes. ??? Work with a nutrition helper (dietitian) to develop a meal plan that works best for you. What foods are high in vitamin K? Foods that are high in vitamin K contain more than 100 mcg (micrograms) per serving. These include: ??? Broccoli (cooked from fresh) ? cup (78 g) has 110 mcg. ??? [place] sprouts (cooked from fresh) ? cup (78 [...] cup (90 g) has 444 mcg. ??? Tunisian chard (cooked from fresh) ? cup (88 [...] cup (54 g) has 8 mcg. ??? [place] with peel (raw) ? cup (52 g) [...] Reviewed: 08/27/2020 Elsevier Patient Education ?? 2020 [employer] Implanted Port Home Guide An implanted [...] implanted port has two main parts: ??? Isabel. The reservoir is the part where a [...] water are not available, use alcohol-based hand spinner concrete pipe. ? Change your dressing as told by [...] provider. Document Revised: 03/01/2020 Document Reviewed: 12/11/2017 [employer] Patient Education ?? 2020 [employer]. Acute Kidney Injury, Adult Acute kidney injury [...] these instructions at home: Medicines ??? Take nxoc-fgf-njgzowu and prescription medicines only as told by [...] important. Where to find more information ??? [place] Association of Kidney Patients: www.aakp.org ??? National Kidney Foundation: www.kidney.org ??? [place] Kid[employer] Fund: www.akfinc.org ??? [employer] [facility] [...] provider. Document Revised: 09/17/2020 Document Reviewed: 09/17/2020 [employer] Patient Education ?? 2020 [employer]. Chronic Kidney Disease, Adult Chronic kidney disease [...] these instructions at home: Medicines ??? Take cozs-ptd-vwpmtaz and prescription medicines only as told by [...] provider. Document Revised: 10/21/2018 Document Reviewed: 12/13/2017 [employer] Patient Education ?? 2020 Else[employer] Inc. Implanted [...] implanted port has two main parts: ??? Isabel. The reservoir is the part where a [...] water are not available, use alcohol-based hand spinner concrete pipe. ? Change your dressing as told by [...] provider. Document Revised: 03/01/2020 Document Reviewed: 12/11/2017 [employer] Patient Education ?? 2020 [employer]. Atrial Fibrillation Atrial fibrillation is a type [...] signals of the heart. ??? An ambulatory personnel monitor to record your heart's activity for [...] provider. Document Revised: 05/01/2020 Document Reviewed: 05/01/2020 [employer] Patient Education ?? 2020 [employer]. Aspirin and Your Heart Aspirin is [...] filedocumented in this encounter Care Teams Gas Cutter Relationship Specialty Start Date End Date Reji Tovar MD [address] [place] [address] PCP - General Adolescent Medicine 10/02/22 documented as of this encounter
--- OUTSIDE RECORDS SUMMARY | 2025-05-30 12:59 | XMS_ITS | Encounter Summary ---
Author Organization [employer] ([place], [place], [place], [place]) Address [address] [place] [address] Care Team Providers Care Switchboard Operator Supervisor Name Role Phone Reji Castro MD Primary Care Provider + [phone] Encounter Details Date Type Department Care Team (Late st Contact Info) Description 08/27/2021 Transcribed Document [facility] [place] [address] [place] [address] ProviderDelvin MD [address] [place], [place] [id number] Social History Tobacco Use Types Packs/Day Years [...] On: 08/27/2021 10:31 EDT by Sallie Solorzano RN-[employer] Stroke/Warfarin Instructions Stroke/TIA Discharge Ins : N/A Sallie Solorzano RN-[employer] - 08/27/2021 10:34 EDT Warfarin Discharge Ins : Open Sallie Solorzano RN-[employer] - 08/27/2021 10:31 EDT Warfarin Discharge Instructions Physician to Manage Warfarin : Sallie Tavarez RN-[employer] - 08/27/2021 10:34 EDT Indication for Warfarin [...] Dose/Frequency : 6 mg daily Sallie Solorzano RN-[employer] - 08/27/2021 10:31 EDT Education Topics: Anticoagulant [...] : Tod Sawyer to manage Sallie Solorzano RN-[employer] - 08/27/2021 10:34 EDT documented in this encounter Plan of Treatment Not on file documented as of this encounter Visit Diagnoses Not on filedocumented in this encounter Care Teams Switchboard Operator Supervisor Relationship Specialty Start Date End Date Reji Castro MD [address] [place] [address] PCP - General Adolescent Medicine 10/02/22 documented as of this encounter
--- OUTSIDE RECORDS SUMMARY | 2025-05-30 12:59 | XMS_ITS | Encounter Summary ---
Author Organization [employer] ([place], [place], [place], [place]) Address [address] [place] [address] Care Team Providers Care Cloth Laminating Supervisor Name Role Phone Reji Castro MD Primary Care Provider + [phone] Encounter Details Date Type Department Care Team (Late st Contact Info) Description 08/27/2021 Transcribed Document [facility] [place] [place] [address] [place] [address] ProviderDelvin MD [address] [place], [place] [phone] Social History Tobacco Use Types Packs/Day Years [...] CDT Reji Castro MD [address] [facility] [address] [place] [address] Re: IRINA TAMAYO Date of Visit: 08/11/2021 [...] contents is strictly prohibited. Sincerely, FAIZA YOUSSEF [address] [facility] [address] [place] [address] The following document(s) were included in the letter: August 27, 2021 10:05:19 EDT - (08/27/2021) Discharge Note documented in this encounter Plan of Treatment Not on file documented as of this encounter Visit Diagnoses Not on filedocumented in this encounter Care Teams Cloth Laminating Supervisor Relationship Specialty Start Date End Date Reji Castro MD [address] [place] [address] [place] [address] PCP - General Adolescent Medicine 10/02/22 documented as of this encounter
--- OUTSIDE RECORDS SUMMARY | 2025-05-30 12:59 | XMS_ITS | Encounter Summary ---
Author Organization [employer] ([place], [place], [place], [place]) Address [address] [place] [address] Care Team Providers Care Screen Printing Machine Operator Helper Name Role Phone Reji Castro MD Primary Care Provider + [phone] Encounter Details Date Type Department Care Team (Late st Contact Info) Description 08/27/2021 Transcribed Document [facility] [place] [facility] [place] [address] ProviderDelvin MD [address] [place] [address] [phone] Social History Tobacco Use Types Packs/Day Years Used Date Smoking Tobacco: Never Assessed Comments Unknown Sex and Gender Information Value Date Recorded Sex Assigned at Not on file Legal Sex Female 4:32 PM CDT Gender Identity Not on file Sexual Orientation Not on file documented as of this encounter Miscellaneous Notes * Cerner Conversion Note - Delvin ProviderMD - 08/27/2021 9:16 AM CDT Patient: IRINA [...] cefTRIAXone: 2 Gram, 100 mL/Hr, IV Piggyback, [id number] diphenhydrAMINE: 25 mg, Oral, Q6H, PRN: Itching [...] 2 g injection: 2 Gram, IV Piggyback, [id number], 0 Refill(s) cefdinir 300 mg oral capsule: [...] Oral, BID cefTRIAXone 2 Gram, IV Piggyback, [id number] citalopram 20 mg tab 40 mg 2 [...] Bioprosthetic mitral valve replacement / SNOMED CT 573341153 / Confirmed Chronic kidney disease / SNOMED CT 0228160095 / Confirmed COPD - Chronic obstructive pulmonary disease / SNOMED CT 797426762 / Confirmed History of obstructive sleep apnea / IMO [id number] / Confirmed HLD - Hyperlipidemia / SNOMED CT 978495004 / Confirmed HTN - Hypertension / SNOMED CT 2150107275 / Confirmed Canceled: Atrial fibrillation / SNOMED CT 60449263, Active Problems (25) AIHA (autoimmune hemolytic anemia) [...] filedocumented in this encounter Care Teams Screen Printing Machine Operator Helper Relationship Specialty Start Date End Date Reji Castro MD [address] [place] [address] PCP - General Adolescent Medicine 10/02/22 documented as of this encounter
--- OUTSIDE RECORDS SUMMARY | 2025-05-30 12:59 | XMS_ITS | Encounter Summary ---
Author Organization [employer] ([place], [place], [place], [place]) Address [address] [place] [address] Care Team Providers Care Survey Research Professor Name Role Phone Reji Castro MD Primary Care Provider + [phone] Encounter Details Date Type Department Care Team (Late st Contact Info) Description 08/27/2021 Transcribed Document [facility] [place] [address] ProviderDelvin MD [address] [place] [phone] Social History Tobacco Use Types Packs/Day Years Used Date Smoking Tobacco: Never Assessed Comments Unknown Sex and Gender Information Value Date Recorded Sex Assigned at Not on file Legal Sex Female 4:32 PM CDT Gender Identity Not on file Sexual Orientation Not on file documented as of this encounter Miscellaneous Notes * Cerner Conversion Note - Historical ProviderMD - 08/27/2021 2:00 AM CDT Semiconductor Wafers Marker Details Entered On: 08/27/2021 3:29 EDT Performed [...] in this encounter Care Teams Survey Research Professor Relationship Specialty Start Date End Date Reji Castro MD [address] [place] [address] PCP - General Adolescent Medicine 10/02/22 documented as of this encounter
--- OUTSIDE RECORDS SUMMARY | 2025-05-30 12:59 | XMS_ITS | Encounter Summary ---
Author Organization [employer] ([place], [place], [place], [place]) Address [address] [place] [address] Care Team Providers Care Trademark Paralegal Name Role Phone Reji Castro MD Primary Care Provider + [phone] Encounter Details Date Type Department Care Team (Late st Contact Info) Description 08/15/2021 Transcribed Document [facility] [place] [address] ProviderDelvin MD [address] [place] [address] Social History Tobacco Use Types Packs/Day [...] Historical ProviderMD - 08/15/2021 2:00 AM CDT Cell Plasterer Details Entered On: 08/15/2021 1:25 EDT Performed [...] on filedocumented in this encounter Care Teams Trademark Paralegal Relationship Specialty Start Date End Date Reji Castro MD [address] [place] [address] PCP - General Adolescent Medicine 10/02/22 documented as of this encounter
--- OUTSIDE RECORDS SUMMARY | 2025-05-30 12:59 | XMS_ITS | Encounter Summary ---
Author Organization [employer] ([place], [place], [place], [place]) Address [address] [place] [address] Care Team Providers Care Gastrointestinal Technician Name Role Phone Reji Castro MD Primary Care Provider [phone] Encounter Details Date Type Department Care Team (Late st Contact Info) Description 10/02/2022 Outside Orders [facility] Scheduling [address] [place] [address] Marion Umana MD [address] [facility] [address] [place], [place] [id number] Stage 3 chronic kidney disease, unspecified whether [...] Primary documented in this encounter Care Teams Gastrointestinal Technician Relationship Specialty Start Date End Date Reji Castro MD [address] [place] [address] PCP - General Adolescent Medicine 10/02/22 documented as of this encounter
--- OUTSIDE RECORDS SUMMARY | 2025-05-30 12:59 | XMS_ITS | Encounter Summary ---
Author Organization [employer] ([place], [place], [place], [place]) Address [address] [place] [address] Care Team Providers Care Sales And Service Specialist Name Role Phone Reji Castro MD Primary Care Provider + [phone] Encounter Details Date Type Department Care Team (Late st Contact Info) Description 08/27/2021 Transcribed Document [facility] Family Medicine [address] [place] [address] ProviderDelvin MD [address] [place] [address]651 Social History Tobacco Use Types Packs/Day Years [...] in this encounter Care Teams Sales And Service Specialist Relationship Specialty Start Date End Date Reji Castro MD [address] [place] [address] PCP - General Adolescent Medicine 10/02/22 documented as of this encounter
--- OUTSIDE RECORDS SUMMARY | 2025-05-30 12:59 | XMS_ITS | Encounter Summary ---
Author Organization [employer] ([place], [place], [place], [place]) Address [address] [place] [address] Care Team Providers Care Patient Safety Manager Name Role Phone Reji Castro MD Primary Care Provider + [phone] Encounter Details Date Type Department Care Team (Late st Contact Info) Description 08/13/2021 Transcribed Document [facility] Family Medicine [facility] [place] [address] ProviderDelvin MD [address] [place] [phone] Social History Tobacco Use Types Packs/Day Years [...] III. Patient follows with Dr gonzáles in [place]. She has hx of obstructive uropathy with [...] # 0.62 x10(3)/uL (Low) 08/13/2021 05:19 EDT Crosby % 9.5 % (High) 08/13/2021 05:19 EDT [place] # 0.52 K/uL 08/13/2021 05:19 EDT Eos [...] mcg/mL 08/13/2021 05:19 EDT Electronically signed by [facility] Conversion Smoke Control Supervisor Cerner at 03/09/2023 9:02 PM CDT documented in this encounter Plan of Treatment Not on file documented as of this encounter Visit Diagnoses Not on filedocumented in this encounter Care Teams Patient Safety Manager Relationship Specialty Start Date End Date Reji Castro MD [address] [place] [address] PCP - General Adolescent Medicine 10/02/22 documented as of this encounter
--- OUTSIDE RECORDS SUMMARY | 2025-05-30 12:59 | XMS_ITS | Encounter Summary ---
Author Organization [employer] ([place], [place], [place], [place]) Address [address] [place] [address] Care Team Providers Care Turner And Former Automatic Name Role Phone Reji Castro MD Primary Care Provider + [phone] Encounter Details Date Type Department Care Team (Late st Contact Info) Description 08/27/2021 Transcribed Document [facility] [place] [address] [place] [address] ProviderDelvin MD [address] [place] [address] Social History Tobacco Use Types Packs/Day Years [...] 08/27/2021 3:29 EDT Electronically signed by [facility] Conversion Compress Engineer Cerner at 03/09/2023 8:34 PM CDT documented in this encounter Plan of Treatment Not on file documented as of this encounter Visit Diagnoses Not on filedocumented in this encounter Care Teams Turner And Former Automatic Relationship Specialty Start Date End Date Reji Castro MD [address] [place] [address] PCP - General Adolescent Medicine 10/02/22 documented as of this encounter
--- OUTSIDE RECORDS SUMMARY | 2025-05-30 12:59 | XMS_ITS | Encounter Summary ---
Author Organization [employer] ([place], [place], [place], [place]) Address [address] [place] [address] Care Team Providers Care Hydroponics Worker Name Role Phone Reji Castro MD Primary Care Provider + [phone] Encounter Details Date Type Department Care Team (Late st Contact Info) Description 08/21/2021 Transcribed Document [facility] [place] [address] ProviderDelvin MD [address] [place] [phone] Social History Tobacco Use Types Packs/Day Years [...] cefTRIAXone: 2 Gram, 100 mL/Hr, IV Piggyback, [id number]. citalopram: 40 mg, Oral, Daily. diphenhydrAMINE: 50 [...] questions. Thank you, Andrea Moraes, PharmD PGY1 Financial Secretary Pager: [phone] Ext. [phone] documented in this encounter Plan of Treatment Not on file documented as of this encounter Visit Diagnoses Not on filedocumented in this encounter Care Teams Hydroponics Worker Relationship Specialty Start Date End Date Reji Castro MD [address] [place] [address] PCP - General Adolescent Medicine 10/02/22 documented as of this encounter
--- OUTSIDE RECORDS SUMMARY | 2025-05-30 12:59 | XMS_ITS | Encounter Summary ---
Author Organization [employer] ([place], [place], [place], [place]) Address [address] [place] [address] Care Team Providers Care Rippler Name Role Phone Reji Castro MD Primary Care Provider + [phone] Encounter Details Date Type Department Care Team (Late st Contact Info) Description 08/24/2021 Transcribed Document [facility] [place] [place] Family Medicine [address] [place] [address] ProviderDelvin MD [address] [place] [phone] Social History Tobacco Use Types Packs/Day Years [...] on filedocumented in this encounter Care Teams Rippler Relationship Specialty Start Date End Date Reji Castro MD [address] [place] [address] PCP - General Adolescent Medicine 10/02/22 documented as of this encounter
--- OUTSIDE RECORDS SUMMARY | 2025-05-30 12:59 | XMS_ITS | Encounter Summary ---
Author Organization [employer] ([place], [place], [place], [place]) Address [address] [place] [address] Care Team Providers Care Skip Hoist Engineer Name Role Phone Reji Castro MD Primary Care Provider + [phone] Encounter Details Date Type Department Care Team (Late st Contact Info) Description 08/21/2021 Transcribed Document [facility] [place] [address] [place] [address] ProviderDelvin MD [address] [place] [address] [phone] Social History Tobacco Use Types Packs/Day Years [...] 08/21/2021 18:33 EDT Electronically signed by [facility] Conversion Director Sanitation Bureau Cerner at 03/09/2023 8:36 PM CDT documented in this encounter Plan of Treatment Not on file documented as of this encounter Visit Diagnoses Not on filedocumented in this encounter Care Teams Skip Hoist Engineer Relationship Specialty Start Date End Date Reji Castro MD [address] [place] [address] PCP - General Adolescent Medicine 10/02/22 documented as of this encounter
--- OUTSIDE RECORDS SUMMARY | 2025-05-30 12:59 | XMS_ITS | Encounter Summary ---
Author Organization [facility] Address [address] [place] [address] Care Team Providers Care Network Security Analyst Name Role Phone Anna Marie Savage MD Primary Care Provider [phone] Reji Castro MD Primary Care Provider [phone] Encounter Details Date Type Department Care Team (Late Contact Info) Description 10/05/2022 Orders Only External Location [address] [place] [address] Provider, External Social History Tobacco Use Types [...] as of this encounter Plan of Treatment Upcoming Encounters Date Type Department Care Team ([facility] Contact Info) Description 06/25/2025 1:40 PM EDT Office Visit [facility] Nephrology, Bone & Mineral Metabolism [address] [facility], [address] [place] [address] documented as of this encounter Procedures Procedure [...] in this encounter Care Teams Network Security Analyst Relationship Specialty Start Date End Date Anna Marie Savage MD [address] [place], [place] [phone] PCP - General 04/04/21 12/07/23 Reji Castro MD [address] [place] [address] [address] [place] [id number] PCP - General Internal Medicine 12/08/23 documented as of this encounter
--- OUTSIDE RECORDS SUMMARY | 2025-05-30 12:59 | XMS_ITS | Encounter Summary ---
Author Organization [employer] ([place], [place], [place], [place]) Address [address] [place] [address] Care Team Providers Care Drilling Machine Runner Name Role Phone Reji Castro MD Primary Care Provider + [phone] Encounter Details Date Type Department Care Team (Late st Contact Info) Description 08/21/2021 Transcribed Document [facility] [place] Family Medicine [facility] [place] [address] ProviderDelvin MD [address] [place] [address] [phone] Social History Tobacco Use Types Packs/Day Years [...] her port could not be accessed. Her otolaryngologist aspirated fluid from the port that was evidently purulent. I have not yet been able to track down that culture. After the aspiration she developed fever to 103, severe CHEUNG, myalgias and arthralgias. She was admitted to [facility]. She was in the hospital for 10 [...] antibiotics. On 08/08 [facility] after she developed severe CHEUNG and myalgias w/o prominent fever. She was subsequently contacted and told to report to 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 Integumentary: Warm, [place]. Neurologic: Alert, Oriented, No focal deficits. [...] on filedocumented in this encounter Care Teams Drilling Machine Runner Relationship Specialty Start Date End Date Reji [place] MD [address] [place] [address] PCP - General Adolescent Medicine 10/02/22 documented as of this encounter
--- OUTSIDE RECORDS SUMMARY | 2025-05-30 12:59 | XMS_ITS | Encounter Summary ---
Author Organization [employer] ([place], [place], [place], [place]) Address [address] [place] [address] Care Team Providers Care Medical Service Technician Name Role Phone Reji Castro MD Primary Care Provider + [phone] Encounter Details Date Type Department Care Team (Late st Contact Info) Description 08/21/2021 Transcribed Document [facility] [place] [facility] [place] [address] ProviderDelvin MD [address] [place] [address] [id number] Social History Tobacco Use Types Packs/Day Years [...] cefTRIAXone: 2 Gram, 100 mL/Hr, IV Piggyback, [id number] diphenhydrAMINE: 25 mg, Oral, Q6H, PRN: Itching [...] Oral, BID cefTRIAXone 2 Gram, IV Piggyback, [id number] citalopram 20 mg tab 40 mg 2 [...] History of obstructive sleep apnea / IMO 44957218 / Confirmed Bioprosthetic mitral valve replacement / SNOMED CT 796565387 / Confirmed Chronic kidney disease / SNOMED CT 5248423180 / Confirmed COPD - Chronic obstructive pulmonary disease / SNOMED CT 298133043 / Confirmed HTN - Hypertension / SNOMED CT 8418937206 / Confirmed HLD - Hyperlipidemia / SNOMED CT 433003072 / Confirmed Amblyopia / SNOMED CT 3498065953 / Confirmed 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 / SNOMED CT 782532412 / Confirmed Myocardial infarction / SNOMED CT 23440903 / Confirmed Atrial fibrillation / SNOMED CT 66752476 / Confirmed GERD - Gastro-esophageal reflux disease / SNOMED CT 0361009300 / Confirmed Diverticulosis / SNOMED CT 2309396500 / Confirmed Hepatomegaly / SNOMED CT 771374601 / Confirmed Renal calculus / SNOMED CT 895269975 / Confirmed Ovarian cyst / SNOMED CT 324020174 / Confirmed Arthritis / SNOMED CT 0115097 / Confirmed Back pain / PNED [id number] / Confirmed Fibromyalgia / SNOMED CT 78538143 / Confirmed Restless legs syndrome / SNOMED CT 14151814 / Confirmed Diabetes mellitus type II / SNOMED CT 53139409 / Confirmed Thyroid disease / SNOMED CT 788967362 / Confirmed Edema / SNOMED CT 412298358 / Confirmed BLE neuropathy hands and feet / Confirmed frequent headache / Confirmed AIHA (autoimmune hemolytic anemia) / SNOMED CT 8122531525 / Confirmed Resolved: Bronchitis / SNOMED CT 50889377 Resolved: Bowel obstruction / SNOMED CT 042342572 Canceled: Atrial fibrillation / SNOMED CT 47520693 Canceled: Lazy eye / SNOMED CT 567216679 lazy eye blindness (left eye) Canceled: Heart failure / SNOMED CT 593259348 Canceled: Heart valve / SNOMED CT 896543150 Canceled: High blood pressure / SNOMED CT 86496778 Canceled: Hyperlipidemia / SNOMED CT 04418259 Canceled: Cardiac arrhythmia / SNOMED CT 6075250918 Canceled: COPD / SNOMED CT 18412501 Canceled: Diabetes mellitus / SNOMED CT 481295750 Canceled: Anemia, iron deficiency / SNOMED CT 639249815, Active Problems (25) AIHA (autoimmune hemolytic anemia) [...] EDT Height Source Stated Height Entry Format [place] Height/Length, ESTONIAN (ft) 5 ft Height/Length ESTONIAN 4 Inch CLINICALHEIGHT 162.56 cm Routine Weight Source Standing scale Routine Weight Entry Format [place] Routine Weight, Pounds 204 lb Routine Weight, [...] filedocumented in this encounter Care Teams Medical Service Technician Relationship Specialty Start Date End Date Reji [place] MD [address] [place] [address] PCP - General Adolescent Medicine 10/02/22 documented as of this encounter
--- OUTSIDE RECORDS SUMMARY | 2025-05-30 12:59 | XMS_ITS | Encounter Summary ---
Author Organization [employer] ([place], [place], [place], [place]) Address [address] [place] [address] Care Team Providers Care Varnish Maker Helper Name Role Phone Reji Castro MD Primary Care Provider + [phone] Encounter Details Date Type Department Care Team (Late st Contact Info) Description 08/22/2021 Transcribed Document [facility] [place] [address] [place] [address] ProviderDelvin MD [address] [place] [address] [phone] Social History Tobacco Use Types Packs/Day Years [...] on filedocumented in this encounter Care Teams Varnish Maker Helper Relationship Specialty Start Date End Date Reji [place] MD [address] [place] [address] PCP - General Adolescent Medicine 10/02/22 documented as of this encounter
--- OUTSIDE RECORDS SUMMARY | 2025-05-30 12:59 | XMS_ITS | Encounter Summary ---
Author Organization [employer] ([place], [place], [place], [place]) Address [address] [place] [address] Care Team Providers Care Vocational Psychologist Name Role Phone Reji [place] MD Primary Care Provider + [phone] Encounter Details Date Type Department Care Team (Late st Contact Info) Description 08/24/2021 Transcribed Document [facility] Family Medicine [facility] [place] [address] ProviderDelvin MD [address] [place] [address] [phone] Social History Tobacco Use Types Packs/Day Years [...] cefTRIAXone: 2 Gram, 100 mL/Hr, IV Piggyback, [id number]. citalopram: 40 mg, Oral, Daily. diphenhydrAMINE: 25 [...] you, Noy Garrett, PharmD PGY-1 Resident Pager #[phone] Electronically signed by Lanny [facility] Conversion Barrel Rifler Button Cerner at 03/09/2023 8:39 PM CDT documented in this encounter Plan of Treatment Not on file documented as of this encounter Visit Diagnoses Not on filedocumented in this encounter Care Teams Vocational Psychologist Relationship Specialty Start Date End Date Reji [place] MD [address] [place] [address] PCP - General Adolescent Medicine 10/02/22 documented as of this encounter
--- OUTSIDE RECORDS SUMMARY | 2025-05-30 12:59 | XMS_ITS | Encounter Summary ---
Author Organization [email or web address] ([place], [place], [place], [place]) Address [address] [place] [address] Care Team Providers Care Visual Journalist Name Role Phone Reji [place] MD Primary Care Provider [phone] Encounter Details Date Type Department Care Team (Late st Contact Info) Description 08/21/2021 Transcribed Document [facility] Radiology [address] [place] [address] Loren Solorzano MD [address] [place] [address] [place] [address] Social History Tobacco Use Types Packs/Day Years [...] cefTRIAXone: 2 Gram, 100 mL/Hr, IV Piggyback, [id number] diphenhydrAMINE: 25 mg, Oral, Q6H, PRN: Itching [...] Oral, BID cefTRIAXone 2 Gram, IV Piggyback, [id number] citalopram 20 mg tab 40 mg 2 [...] Bioprosthetic mitral valve replacement / SNOMED CT 316771538 / Confirmed Chronic kidney disease / SNOMED CT 3299930080 / Confirmed COPD - Chronic obstructive pulmonary disease / SNOMED CT 503372548 / Confirmed History of obstructive sleep apnea / IMO 29669201 / Confirmed HLD - Hyperlipidemia / SNOMED CT 527339777 / Confirmed HTN - Hypertension / SNOMED CT 0328599033 / Confirmed Canceled: Atrial fibrillation / SNOMED CT 16854240, Active Problems (25) AIHA (autoimmune hemolytic anemia) [...] 21 06:00) 97.6 (AUG 21 06:00) 98 ([facility] 11:00) Apical HR 70 (AUG 20 20:27) 70 (AUG 20 20:27) 70 ([facility] 20:27) Mon HR 61 (AUG 21 06:00) 61 (AUG 21 06:00) 89 ([facility] 11:00) Resp Rate 15 (AUG 21 06:00) 15 (AUG 21 06:00) 18 (AUG 20 11:00) SBP 101 (AUG 21 06:00) 95 (AUG 20 23:30) 127 ([facility] 11:00) DBP 68 (AUG 21 06:00) L 50 (AUG 20 15:00) 80 ([facility] 11:00) MAP 78 (AUG 21 06:00) 63 [...] Hold home meds SSI #Depression Celexa #Pain Abie 10 mg every 6 hours as needed Dispo: Given patient with history of multiple transfusion we will keep patient in the hospital on heparin drip and Coumadin till INR therapeutic need IV abx, at least until 09/08. Discussed with case management manager. and pharmcy Time spent 25 minutes documented in this encounter Plan of Treatment Not on file documented as of this encounter Visit Diagnoses Not on filedocumented in this encounter Care Teams Visual Journalist Relationship Specialty Start Date End Date Reji [place] MD [address] [place] [id number] PCP - General Adolescent Medicine 10/02/22 documented as of this encounter
--- OUTSIDE RECORDS SUMMARY | 2025-05-30 12:59 | XMS_ITS | Clinical Summary ---
Author Organization [employer] ([place], [place], [place], [place]) Address [address] [place] [address] Care Team Providers Care Studio Camera Operator Name Role Phone Reji [place] MD Primary Care Provider [phone] Allergies Active Allergy Reactions Criticality Noted Date [...] Date Yash rded Speak language other than Slovenian at home Not on file 12/10/2023 Want [...] (3 - season) 07/23/202403/2021, 01/27/2021 Influenza Vaccine (#1) 2025 07/24/2021 Respiratory Syncytial Virus (RSV) Adult or (1 - 1-dose 75+ series) 2038 Insurance [facility] Advance Directives For more information, please contact: [phone] Documents on File Type Date Recorded Patient Food Safety Specialist Expl anation Advance Directives and Livin g Will 10/05/2022 8:36 AM Care Teams Studio Camera Operator Relationship Specialty Start Date End Date Reji [place] MD [address] [place] [address] PCP - General Adolescent Medicine 10/02/22
--- OUTSIDE RECORDS SUMMARY | 2025-05-30 12:59 | XMS_ITS | Encounter Summary ---
Author Organization [employer] ([place], [place], [place], [place]) Address [address] [place] [address] Care Team Providers Care Digital Librarian Name Role Phone Reji [place] MD Primary Care Provider [phone] Reason for Referral * Nuclear Medicine (Routine) - Closed Specialty Diagnoses / Procedures Referred By Contac t Referred To Contact Diagnoses Stage 3 chronic kidney disease, unspecified whether stage 3a or 3b CKD (HCC) Procedures NM parathyroid scan planar only Marion Umana MD Phone: tel: fax: Referral ID Status Reason Start Date Expiration Date Visits Re quested Visits Authorized [id number] Closed 10/02/2022 03/31/2023 1 1 Encounter Details Date Type Department Care Team (Late st Contact Info) Description 10/02/2022 Outside Orders [facility] Central Scheduling [address] [place] [address] Marion Umana MD [address] [facility] [address] [place] [address] Stage 3 chronic kidney disease, unspecified whether [...] (HCC) documented in this encounter Care Teams Digital Librarian Relationship Specialty Start Date End Date Reji [place] MD [address] [place] [address] PCP - General Adolescent Medicine 10/02/22 documented as of this encounter
--- OUTSIDE RECORDS SUMMARY | 2025-05-30 12:59 | XMS_ITS | Clinical Summary ---
Author Organization [facility] Address [address] [place] [address] Care Team Providers Care Eclectic Doctor Name Role Phone Reji [place] MD Primary Care Provider [phone] Allergies Active Allergy Reactions Criticality Noted Date [...] (one) time each day. Active Continuous Glucose Vest Baster (FreeStyle Gerson 14 Day Clutier) device use as directed 4 Active Continuous [...] Description 05/23/2025 Community Orders [facility] [address] [place] [address] Reji [place] MD Stage 3b chronic kidney disease (CMS/HCC) (Primary Dx) 05/18/2025 Telephone [facility] [address] [facility] [address] [place] [address] Alysha Maloney 05/17/2025 Telephone [facility] [address] [facility] [address] [place] [address] Alysha Maloney 05/07/2025 Orders Only External Location [address] [place] [address] Provider, External 05/07/2025 Orders Only External Location [address] [place] [address] Provider, External from Last 3 Months Immunizations [...] 12/19/2024 10:29 AM EST Plan of Treatment Upcoming Encounters Date Type Department Care Team (Late st Contact Info) Description 06/25/2025 1:40 PM EDT Office Visit [facility] Nephrology, Bone & Mineral Metabolism [address] [facility], [address] [place] [address] Health Maintenance Due Date Last Done Comments [facility]-Medicare Annual Wellness (AWV) 1963 [facility]-/Child/Adol SDOH Screenings 1963 Diabetes: Dental Exam 1973 [facility]- SDOH Screenings 1981 [facility]-Adult SDOH Screenings 1981 [facility]-Hepatitis A Vaccines (1 of 2 - Risk 2-dose series) 1982 [facility]-Pap Smear 1984 [facility]-Cervical Cancer Screening 1993 [facility]-HPV/Cotest 1993 CT Colonography 2008 Colonoscopy 2008 FIT-DNA 2008 FIT 2008 FOBT 2008 Sigmoidoscopy 2008 [facility]-Colorectal Cancer Screening 2008 [facility]-Breast Cancer Screening 2013 [facility]-Zoster Vaccines (1 of 2) 2013 [facility]-BVAXO-64 Vaccine (3 - Moderna risk series) 03/24/2021 [...] Reactive Non Reactive 12/15/2024 9:33 PM EST [facility] Comment:Screening for HIV 1 & 2 antibodies, and P24 antigen is NONREACTIVE. No confirmatory testing is required. Blood Venous blood specimen / Unknown Venipuncture / Unknown 12/15/2024 8:10 PM EST 12/15/2024 8:52 PM EST Elijah Negron MD LAB BLOOD ORDERABLES Final Result Performing Organization Address City/[facility]/ZIP Co de Phone Number [facility] [address] [place] [address] * Hepatitis C Antibody - ED (12/15/2024 8:10 PM EST) Hepatitis C Antibody Negative Negative 12/15/2024 9:33 PM EST [facility] Blood Venous blood specimen / Unknown Venipuncture / Unknown 12/15/2024 8:10 PM EST 12/15/2024 8:52 PM EST Elijah Negron MD LAB BLOOD ORDERABLES Final Result Performing Organization Address City/[facility] Co de Phone Number [facility] [address] [place] [address] * (ABNORMAL) Hemoglobin A1c (11/20/2023 2:15 AM [...] Adults <6.0% Children and Adolescents <7.5% Source: [place] [employer]. Standards of medical care in diabetes,2017. Diabetes Care.2017:40 (suppl 1):S1-S135. HbA1c assay performed by an ion-exchange chromatography method that is certified traceable to the DCCT. us Alannah Conti REGIONAL BRANCH MANAGER LAB BLOOD ORDERABLES Final Re sult [facility] [address] [place] [address] from Last 3 Months or Most Recently Relevant to Health Maintenance Insurance [facility] MEDICARE Advance Directives * Full Code (Latest Code Status on File) Date Activated Date Inactivated Comments 11/18/2023 5:56 PM 11/24/2023 4:04 PM Question Answer Comments Patient has decision-making capacity? Yes Care Teams Eclectic Doctor Relationship Specialty Start Date End Date Reji [place] MD [address] [place] [address] PCP - General Internal Medicine 12/08/23
--- OUTSIDE RECORDS SUMMARY | 2025-05-30 12:59 | XMS_ITS | Encounter Summary ---
Author Organization [employer] ([place], [place], [place], [place]) Address [address] [place] [address] Care Team Providers Care Dragline Oiler Name Role Phone Reji Castro MD Primary Care Provider + [phone] Encounter Details Date Type Department Care Team (Late st Contact Info) Description 08/16/2021 Transcribed Document [facility] [place] [address] [place] [address] ProviderDelvin MD [address] [place] [address] [phone] Social History Tobacco Use Types Packs/Day Years [...] 08/16/2021 17:03 EDT Electronically signed by Lanny [facility] Conversion Carton Maker Cerner at 03/09/2023 8:45 PM CDT documented in this encounter Plan of Treatment Not on file documented as of this encounter Visit Diagnoses Not on filedocumented in this encounter Care Teams Dragline Oiler Relationship Specialty Start Date End Date Reji [place] MD [address] [place] [address] PCP - General Adolescent Medicine 10/02/22 documented as of this encounter
--- OUTSIDE RECORDS SUMMARY | 2025-05-30 12:59 | XMS_ITS | Encounter Summary ---
Author Organization [facility] Address [address] [place] [address] Care Team Providers Care Enterprise Solutions Architect Name Role Phone Anna Marie Savage MD Primary Care Provider [phone] Reji Castro MD Primary Care Provider [phone] Encounter Details Date Type Department Care Team (Late Contact Info) Description 07/09/2023 Orders Only External Location [address] [place] [address] Karen Benson MD [address] [place] [address] Social History Tobacco Use Types Packs/Day Years [...] Encounters Date Type Department Care Team (Late Contact Info) Description 06/25/2025 1:40 PM EDT Office Visit [facility] Nephrology, Bone & Mineral Metabolism [address] [facility], [address] [place] [address] documented as of this encounter Procedures Procedure Name Priority Date/Time Associated Diagnosis Comments XR OUTSIDE IMAGES 07/09/2023 9:55 AM EDT documented in this encounter Results * XR OUTSIDE IMAGES (07/09/2023 9:55 AM EDT) Anatomical Region Laterality Modality Radiographic Silvia ging 07/09/2023 9:55 AM EDT Karen Benson MD IMG XR PROCEDURES Final Result documented in this encounter Visit Diagnoses Not on filedocumented in this encounter Additional Health Concerns Assessment Noted Time A Body Mass Index follow-up plan has been documented for the patient 06/22/2023 11:18 AM EDT documented as of this encounter Care Teams Enterprise Solutions Architect Relationship Specialty Start Date End Date Anna Marie Savage MD [address] [place] [address] PCP - General 04/04/21 12/07/23 Reji [place] MD [address] [place] [address] [address] [place] [address] PCP - General Internal Medicine 12/08/23 documented as of this encounter
--- OUTSIDE RECORDS SUMMARY | 2025-05-30 12:59 | XMS_ITS | Encounter Summary ---
Author Organization [employer] ([place], [place], [place], [place]) Address [address] [place] [address] Care Team Providers Care Machine Learning Intern Name Role Phone Reji Castro MD Primary Care Provider + [phone] Encounter Details Date Type Department Care Team (Late st Contact Info) Description 08/13/2021 Transcribed Document [facility] [place] [facility] [place] [address] ProviderDelvin MD [address] [place] [id number] Social History Tobacco Use Types Packs/Day Years [...] mg, 14 mL, 128 mL/Hr, IV Piggyback, [id number] Dextrose 50% injection: 12.5 Gram, IV Push, [...] improvement time 35mins Electronically signed by Lanny, [facility] Conversion Bottomer Operator Cerner at 03/09/2023 9:02 PM CDT documented in this encounter Plan of Treatment Not on file documented as of this encounter Visit Diagnoses Not on filedocumented in this encounter Care Teams Machine Learning Intern Relationship Specialty Start Date End Date Reji Castro MD [address] [place] [address] PCP - General Adolescent Medicine 10/02/22 documented as of this encounter
--- OUTSIDE RECORDS SUMMARY | 2025-05-30 12:59 | XMS_ITS | Encounter Summary ---
Author Organization [employer] ([place], [place], [place], [place]) Address [address] [place] [address] Care Team Providers Care Retarder Operator Name Role Phone Reji Castro MD Primary Care Provider + [phone] Encounter Details Date Type Department Care Team (Late st Contact Info) Description 08/22/2021 Transcribed Document [facility] [place] [facility] [place] [address] ProviderDelvin MD [address] [place] [address] [phone] Social History Tobacco Use Types Packs/Day Years [...] cefTRIAXone: 2 Gram, 100 mL/Hr, IV Piggyback, [id number] diphenhydrAMINE: 25 mg, Oral, Q6H, PRN: Itching [...] Oral, BID cefTRIAXone 2 Gram, IV Piggyback, [id number] citalopram 20 mg tab 40 mg 2 [...] Bioprosthetic mitral valve replacement / SNOMED CT 614397477 / Confirmed Chronic kidney disease / SNOMED CT 0576128153 / Confirmed COPD - Chronic obstructive pulmonary disease / SNOMED CT 334890788 / Confirmed History of obstructive sleep apnea / IMO 42848633 / Confirmed HLD - Hyperlipidemia / SNOMED CT 994682454 / Confirmed HTN - Hypertension / SNOMED CT 1975103243 / Confirmed Canceled: Atrial fibrillation / SNOMED CT 81687191, Active Problems (25) AIHA (autoimmune hemolytic anemia) [...] Monitor GFR adjust medications. Electronically signed by [facility] Conversion Bit Gatherer Cerner at 03/09/2023 8:43 PM CDT documented in this encounter Plan of Treatment Not on file documented as of this encounter Visit Diagnoses Not on filedocumented in this encounter Care Teams Retarder Operator Relationship Specialty Start Date End Date Reji Castro MD [address] [place] [address] PCP - General Adolescent Medicine 10/02/22 documented as of this encounter
--- OUTSIDE RECORDS SUMMARY | 2025-05-30 12:59 | XMS_ITS | Encounter Summary ---
Author Organization [employer] ([place], [place], [place], [place]) Address [address] [place] [address] Care Team Providers Care Manager Cost Name Role Phone Reji Castro MD Primary Care Provider + [phone] Encounter Details Date Type Department Care Team (Late st Contact Info) Description 08/16/2021 Transcribed Document [facility] [place] [facility] [place] [address] ProviderDelvin MD [address] [place] [address] [phone] Social History Tobacco Use Types Packs/Day Years [...] Bed scale Routine Weight Entry Format : Brown Routine Weight, Pounds : 190 lb Routine Weight Calculation : 86.36 kg Height Source : Stated Height Entry Format : Brown Height, Feet : 5 ft Height, Inches : 4 Inch Clinical Height : 162.56 cm Body Surface Area (BSA), Routine : 1.92 m2 Body Mass Index (BMI), Routine : 32.68 kg/m2 JULIO LUND RN-PATIENT CARE BEDSIDE NON-EXEMPT - 08/16/2021 9:18 EDT Electronically signed by Lanny, [place] [facility] Conversion Senior Software Systems Engineer Cerner at 03/09/2023 8:33 PM CDT documented in this encounter Plan of Treatment Not on file documented as of this encounter Visit Diagnoses Not on filedocumented in this encounter Care Teams Manager Cost Relationship Specialty Start Date End Date Reji Castro MD [address] [place] [address] PCP - General Adolescent Medicine 10/02/22 documented as of this encounter
--- OUTSIDE RECORDS SUMMARY | 2025-05-30 12:59 | XMS_ITS | Encounter Summary ---
Author Organization [employer] ([place], [place], [place], [place]) Address [address] [place] [address] Care Team Providers Care Starchmaker Name Role Phone Reji Castro MD Primary Care Provider + [phone] Encounter Details Date Type Department Care Team (Late st Contact Info) Description 08/22/2021 Transcribed Document [facility] [place] [facility] [address] ProviderDelvin MD [address] [place], [place] [id number] Social History Tobacco Use Types Packs/Day Years [...] 08/22/2021 8:20 EDT by Lamar Sheppard Diet Regional Rehabilitation Director Nutrition Assessment Nutrition Assessment Reason : Other: LOS Lamar Sheppard Diet Regional Rehabilitation Director - 08/22/2021 8:20 EDT Nutrition Recommendations Dietitian [...] reported. No nutrition dx at this time. gi tech to rescreen in 7-10 days. Lamar Sheppard, Diet Regional Rehabilitation Director - 08/22/2021 12:04 EDT Electronically signed by Lanny, [facility] Conversion Psychopaedic Nurse Cerner at 03/09/2023 8:41 PM CDT documented in this encounter Plan of Treatment Not on file documented as of this encounter Visit Diagnoses Not on filedocumented in this encounter Care Teams Starchmaker Relationship Specialty Start Date End Date Reji Castor MD [address] [place] [id number] PCP - General Adolescent Medicine 10/02/22 documented as of this encounter
--- OUTSIDE RECORDS SUMMARY | 2025-05-30 12:59 | XMS_ITS | Encounter Summary ---
Author Organization [employer] ([place], [place], [place], [place]) Address [address] [place] [address] Care Team Providers Care Surface Water Manager Name Role Phone Reji Castro MD Primary Care Provider + [phone] Encounter Details Date Type Department Care Team (Late st Contact Info) Description 08/11/2021 Transcribed Document [facility] [facility] [place] [facility] [place] [address] ProviderDelvin MD [address] [place] [id number] Social History Tobacco Use Types Packs/Day Years Used Date Smoking Tobacco: Never Assessed Comments Unknown Sex and Gender Information Value Date Recorded Sex Assigned at Not on file Legal Sex Female 4:32 PM CDT Gender Identity Not on file Sexual Orientation Not on file documented as of this encounter Miscellaneous Notes * [employer]ner Conversion Note - Historical ProviderMD - 08/11/2021 4:16 PM CDT [place] Suicide Severity Rating Scale (C-SSRS) Entered On: 08/11/2021 18:49 EDT Performed On: 08/11/2021 18:46 EDT by MARIPOSA JACQUES RN [place] Suicide Severity Rating Scale (C-SSRS) CSSRS Past [...] on filedocumented in this encounter Care Teams Surface Water Manager Relationship Specialty Start Date End Date Reji aCstro MD [address] [place] [id number] PCP - General Adolescent Medicine 10/02/22 documented as of this encounter
--- OUTSIDE RECORDS SUMMARY | 2025-05-30 12:59 | XMS_ITS | Encounter Summary ---
Author Organization [employer] ([place], [place], [place], [place]) Address [address] [place] [address] Care Team Providers Care Vessel Captain Name Role Phone Reji Castro MD Primary Care Provider + [phone] Encounter Details Date Type Department Care Team (Late st Contact Info) Description 08/22/2021 Transcribed Document [facility] [place] [facility] [place] [address] ProviderDelvin MD [address] [place] [phone] Social History Tobacco Use Types Packs/Day Years [...] Warfarin HPI: 56 y/o F presenting to [facility] with history of COPD, [...] cefTRIAXone: 2 Gram, 100 mL/Hr, IV Piggyback, [id number]. citalopram: 40 mg, Oral, Daily. diphenhydrAMINE: 25 [...] weekend. Thank you, Andrea Moraes, PharmD PGY1 Filler Mixer Pager: [phone], Ext. [phone] documented in this encounter Plan of Treatment Not on file documented as of this encounter Visit Diagnoses Not on filedocumented in this encounter Care Teams Vessel Captain Relationship Specialty Start Date End Date Reji Castro MD [address] [place] [id number] PCP - General Adolescent Medicine 10/02/22 documented as of this encounter
--- OUTSIDE RECORDS SUMMARY | 2025-05-30 12:59 | XMS_ITS | Encounter Summary ---
Author Organization [employer] ([place], [place], [place], [place]) Address [address] [place] [address] Care Team Providers Care Animal Control Specialist Name Role Phone Reji Castro MD Primary Care Provider + [phone] Encounter Details Date Type Department Care Team (Late st Contact Info) Description 08/22/2021 Transcribed Document [facility] [place] [facility] [place] [address] ProviderDelvin MD [address] [place] [phone] Social History Tobacco Use Types Packs/Day Years Used Date Smoking Tobacco: Never Assessed Comments Unknown Sex and Gender Information Value Date Recorded Sex Assigned at Not on file Legal Sex Female 4:32 PM CDT Gender Identity Not on file Sexual Orientation Not on file documented as of this encounter Miscellaneous Notes * [employer] Conversion Note - Delvin ProviderMD - 08/22/2021 3:27 PM CDT On Going Discharge Planning Entered On: 08/22/2021 15:29 EDT Performed On: 08/22/2021 15:27 EDT by MADINA LOVETT RN - Reinforced Steel Placing SupervisorCasino Worker Progress Note Discharge Arrangements : Patient [...] Rounds? : Yes MADINA LOVETT RN - Reinforced Steel Placing Supervisor - 08/22/2021 15:27 EDT Narrative Progress Note [...] also faxed order for home health to [email or web address] which the patient states she has used before. Patient will probably not be ready for discharge until early next week per MDR. DCP: home with home health MADINA LOVETT RN - Reinforced Steel Placing Supervisor - 08/21/21 15:11:24 RRS Low Boost 5 Day 07/30 Patient was admitted for staph infection and port removal. She had a new port placed on 08/19. Patient needs to remain inpatient until her coumadin is at a therapeutic level per at [facility]. Patient will need IV rocephin until 09/08. Patient will need home health and says she has used [facility] in the past. CM will refer her to them after final antibiotic order is placed. DCP: home with home health MADINA LOVETT RN - Reinforced Steel Placing Supervisor - 08/20/21 13:35:46 RRS Low Boost 5 [...] will need home health and lvies in [place]. [facility] is a possibility. MADINA LOVETT RN - Reinforced Steel Placing Supervisor - 08/19/21 15:40:22 RRS Low Boost 5 [...] will need home health and lives in [place]. [facility] home [facility] is a possibility. CM will continue to follow. DCP: MADINA LOVETT RN - Reinforced Steel Placing Supervisor - 08/18/21 15:47:49 (late entry from 08/15-) [...] and send referrals as appropriate. JULIO STEWART, RN-Reinforced Steel Placing Supervisor ED - 08/18/21 10:38:39 MADINA LOVETT, JEREMIAH - Reinforced Steel Placing Supervisor - 08/22/2021 15:27 EDT documented in this encounter Plan of Treatment Not on file documented as of this encounter Visit Diagnoses Not on filedocumented in this encounter Care Teams Animal Control Specialist Relationship Specialty Start Date End Date Reji Castro MD [address] [place] [id number] PCP - General Adolescent Medicine 10/02/22 documented as of this encounter
--- OUTSIDE RECORDS SUMMARY | 2025-05-30 12:59 | XMS_ITS | Data Portability ---
Author Organization [place] & [place]N Granados ADMIN Address [address] [place] [address] Care Team Providers Care Clay Caster Name Role Phone WESTON TOVAR Primary Care Provider [phone] NINOSKA MOSER Automotive Light Mechanic NAFISA LE Primary Care Provider Assessment Encounter [...] Plan - Oncologist got CT 10/27 at [facility]. Will get records. - Schedule Pill Cam - Will refer to Dr. Lopez at [facility] for EGD and Colonoscopy d/t iron [...] - discussed PillCam findings with Jade Moser PERSONAL FINANCIAL PLANNER an updated her on Dr. Betancur's recommendation for PUSH procedure - reviewed findings with patient - EGD/colonoscopy scheduled with Dr. Lopez at [facility] as it is closer to her [...] upper endoscopy procedure (EGD) (PROC) 2024 025 [facility] (Central Scheduling), [address] [place] [address] [place], [address], 5 11:06:05 colonoscop y procedure (PROC) 2024 [facility] [address] [place] [address] [place], [address], 08:49:52 Surgeries None recorded. Imaging None recorded. Medication Orders Miralax 17 gram/dose oral powder 2024 [facility], [address] [place], [address], 5 11:55:43 Dulcolax (bisacodyl ) 5 mg tablet,del ayed release 2024 [email or web address] [facility], [address] [place], [address], 11:55:43 Patient TargetsNo targets recorded. Patient Instructions Encounter Date Encounter Id Patient Instructions Last Modified By Organization Details Last Modified Time 10/11/2024 [id number] Patient benefits from CPAP with resolution of fatigue, witnessed apneas and snores. She is compliant with CPAP. She is on auto CPAP in a range of 4-20 cm. Continue CPAP each and every night full sleep cycle. Weight loss. Patient is compliant with CPAP with an apnea plus hypopnea index of 0.7. RTC in one year. [email or web address] Not available 10/11/2024 10:48:47 Reason for Referral None Reported. Results Created Date Observation Date Name Description Value Unit Range Abnormal Flag Note LastModifiedBy Organization Detail LastModifiedTime 01/25/2001/24/2025 HEMAT OCRIT + HEMOG LOBIN HGB 7.2 g/dL 12.0-1 5.7 critical low Not Available [facility] (Lab Registration) [address] [place], [address], 01/24/2025 14:45:05 01/25/20 25 01/24/2025 HEMAT OCRIT + HEMOG LOBIN HCT 25.5 % 36.0-4 7.0 low Not Available [facility] (Lab Registration) [address] [place], [address], 01/24/2025 14:45:05 01/25/20 25 01/24/2025 HEMAT OCRIT + HEMOG LOBIN note Unles s other chen noted testi ng perfo rmed at: [facility] [address] [place] [address] [phone] Bo cisneros MD CLIA: [id number] Not Available [facility] (Lab Registration) [address] [place] , [place], [address], 01/24/2025 14:45:05 10/05/20 24 08/23/2024 bariu dao hollisall ow study No observ ation record ed. [email or web address] [facility] [address], [place], [place], [address], 11/17/2024 10:19:10 11/17/20 24 11/17/2024 RF, small bowel follo w-thr ough study No observ ation record ed. [facility] [address], [place], [address], 12/06/2024 11:06:36 01/08/20 25 capsu le endos copy (PROC ) No observ ation record ed. [email or web address] Not Available 2024 09:08:22 Result Notes None recorded. Problems Name Problem SNOMED Code Status Onset Date Resolution Date Notes Provider Name and Address Organization Details Recorded Time Iron deficiency anemia 65376914 Active 2024 Ninoska Moser NP [address], [address], [place], [address], [place] - [place] - [place] & [place] 5 10:47:25 Chronic idiopathic constipation 39050080 Active 2024 Ninoska Moser NP [address], [address], [place], [address], [place] & [place] 5 10:54:45 Gastro-esophag eal reflux disease with esophagitis 155183014 Active 2024 Ninoska Moser NP [address], [address], [place], [address], [place] & [place] 5 10:54:45 Obstructive sleep apnea syndrome 51426122 Active 2022 Farhan Bae MD [address] [place] [address],[address], [address], [place] - [facility] & [place] 3 10:26:00 Problem Notes None recorded. Procedures Surgical History Date Name Laterality Status Provider Name and Address Organization Details Recorded Time 01/25 esophagogastroduodenoscopy completed Maye Card [place] & [place] 5 17:05:17 01/25 Colonoscopy completed Maye Card [place] & [place] 5 17:05:26 01/31 completed Shanice Winslow [place] - [place] & [place] 5 09:52:06 07/31 Date of Last Colonoscopy completed Kimberl y Winslow [place] - [place] & [place] 5 09:52:06 ligation of fallopian tube completed Crystal Earlywine [place] & [place] 3 10:12:53 Imaging Results None recorded. Procedure Notes None recorded. Medical Equipment None Reported. Allergies Allergen ID Allergen Name Allergen Category Reaction Reaction Severity Criticality Documentation Date Start Date Code Code System Note Provider Name and Address Organization Details Recorded Time 59600 Buprenex medicatio n Not available Not available Not available 12/18/2022 97430 0 RxNorm Crystal [place] null, [place] - [place] - [place] & [place] 3 10:08:00 37952 codeine medicatio n Not available Not available Not available 12/18/2022 2670 RxNorm Crystal [place] null, [place] - [place] - [place] & [place] 3 10:08:06 31945 Levaquin medicatio n Not available Not available Not available 12/18/2022 79421 2 RxNorm Crystal [place] null, [place] - [place] - [place] & [place] 3 10:08:13 35054 Rocephin medicatio n Not available Not available Not available 12/18/2022 9449 RxNorm [place] Moreno [facility] & [place] 3 10:08:19 49723 Iodinated contrast media (substanc e) medicatio n Not available Not available Not available 12/18/2022 76128 2004 SNOMED [place] Moreno [facility] & [place] 3 10:08:26 Medications Name Sig Start Date [...] No t Available FreeStyle [place] 14 Day [place] USE DIRECTED active Not Available Not Available [...] Updated DateTime 5 162.56 cm 32.5 kg/m2 95437.3 9 g 97.9 [degF] 90 % 90 % 80 /min 77 /min 100/69 mm[Hg] Hannah COBB - LPNT [facility] & [place] 5 13:04:38 Date Recorded Body height Body mass index (BMI) Body weight Body temperature Oxygen saturation Oxygen saturation in Arterial blood by Pulse oximetry Heart rate Provider Name and Address Organization Details Last Updated DateTime 5 162.56 cm 32.2 kg/m2 00532.2 1 g 97.8 [degF] 90 % 90 % 85 /min Shanice Winslowpaddy COBB - LPNT [facility] & [place] 5 09:51:59 Date Recorded Body height Provider Name an d Address Organization Details Last Updated DateTime 01/23/2025 162.56 cm NAFISA LE NP [address] [facility], [place], [address], [place] LP[facility] & [place] 01/23/2025 15:38:59 Date Recorded Heart rate Provider Name an d Address Organization Details Last Updated DateTime 10/11/2024 71 /min Farhan gao MD [address] [facility],[address], [place], [address], [place] LP[facility] & [place] 10/11/2024 10:47:19 Date Recorded Body height Body mass index (BMI) Body weight Oxygen saturation Oxygen saturation in Arterial blood by Pulse oximetry Respiratory rate Systolic And Diastolic Provider Name and Address Organization Details Last Updated DateTime 4 162.56 cm 32.8 kg/m2 25716.4 2 g 97 % 97 % 12 /min 118/78 mm[Hg] Malini COBB - LPNT [facility] & [place] 4 10:42:15 Social History Question Answer Notes LastModified by Organizat ion Details LastModified Time Tobacco Smoking Status Former Smoker 1/2 PPD 30 years Malini gonzalez, [place] - [facility] & [place] 12/18/2022 10:12:37 Do [...] Crystal [place] null, [place] & [place] 10/11/2024 10:42:50 meningococcal B, OMV 9 completed Crystal Earlywine null, [place] & [place] 10/11/2024 10:42:50 Influenza, recombinant, quadrivalent, PF 1 completed Crystal Earlywine null, [place] 10/11/2024 10:42:50 COVID-19, mRNA, LNP-S, PF, 100 mcg/0.5mL dose or 50 mcg/0.25mL dose 1 completed Crystal Earlywine null, [place] 10/11/2024 10:42:50 COVID-19, mRNA, LNP-S, PF, 100 mcg/0.5mL dose or 50 mcg/0.25mL dose 1 completed Crystal Earlywine null, [place] 10/11/2024 10:42:50 pneumococcal polysaccharide PPV23 9 completed Crystal Earlywine null, [place] 10/11/2024 10:42:50 Tdap 3 completed Crystal Earlywine null, [place] & [place] 10/11/2024 10:42:50 Pneumococcal conjugate PCV 13 9 completed Crystal [place]wine null, [place] 10/11/2024 10:42:50 Hib (PRP-T) 9 completed Crystal Earlywine null, [place] 10/11/2024 10:42:50 Meningococcal MCV4O 9 completed Crystal [place]wine null, [place] 10/11/2024 10:42:50 Meningococcal MCV4O 9 completed Crystal [place]wine null, [place] 10/11/2024 10:42:50 Influenza, split virus, quadrivalent, PF 0 completed Crystal [place] null, [place] 10/11/2024 10:42:50 Influenza, split virus, quadrivalent, PF 9 completed Crystal Earlywine null, [place] 10/11/2024 10:42:50 Influenza, split virus, quadrivalent, PF 7 completed [facility] [place] [place] & [place] 10/11/2024 10:42:50 Past Encounters Encounter ID Performer Location Encounter Start Date Encounter Closed Date Diagnosis/Indication Diagnosis SNOMED-CT Code Diagnosis ICD10 Code Diagnosis Note [id number] MD [facility] [address] [place] [address] DR MCCORD [address] [place] [address] 12/18/2022 09:57:02 12/18/2022 10:09:54 Obstructive sleep apnea syndrome 10507280 G47.33 [id number] MD [facility] [address] [place] [address] [place] [address] 10/11/2024 10:32:12 10/11/2024 10:47:15 Obstructive sleep apnea syndrome 66596333 G47.33 [id number] NAFISA LE NP [facility] [address] [address] 10/06/2024 09:54:50 10/06/2024 10:56:04 Gastroesophageal reflux disease 389887821 K21.9 Iron defic iency anemia 23635675 D50.9 History of blood transfusion 663310903 Z92.89 Chronic ki dney disease stage 3 452962738 N18.30 Fatigue 95208408 R53.83 Chronic id iopathic constipation 57674729 K59.04 [id number] NAFISA LE NP [facility] [address] [address] 11/29/2024 12:15:00 11/29/2024 13:42:06 Gastroesophageal reflux disease 517939331 K21.9 - continue Dexilant 60 mg Iron defic iency anemia 77960136 D50.9 - refer to [place] for EGD and colonoscop y History of blood transfusion 941927228 Z92.89 - small bowel follow through reviewed- Schedule Pill Cam Chronic ki dney disease stage 3 271446292 N18.30 Fatigue 86197501 R53.83 Chronic id iopathic constipation 67118878 K59.04 - trial Linzess [id number] Trey Lopez M.D [facility] [address] [place] [address] 01/03/2025 08:58:20 01/03/2025 10:18:02 Iron deficiency anemia 07804471 D50.9 Ongoing for many years. She follows [...] colonoscop y estimated 10 years ago in [place] which were negative. She continues to follow with Cardiology , Dr. Pendleton. Recommend EGD/colono scopy to further evaluate after cardiac clearance, Dr. Pendleton, has been obtained as she is prescribed Warfarin. Will obtain recent labs to review. Gastro-eso phageal reflux disease with esophagitis 443093519 K21.00 Controlled with use of Dexilant. Chronic id iopathic constipation 64575571 K59.04 Currently prescribed Miralax, Linzess 72 mcg, and Dulcolax for treatment. [id number] NAFISA LE NP [facility] [address] [address] 01/23/2025 15:34:39 01/23/2025 15:56:32 Gastroesophageal reflux disease 246578917 K21.9 - continue Dexilant 60 mg Iron defic iency anemia 22521308 D50.9 History of blood transfusion 745528935 Z92.89 Chronic ki dney disease stage 3 620917832 N18.30 Fatigue 43977934 R53.83 Chronic id iopathic constipation 98096763 K59.04 Health Concerns Section Related Observation LastModified by Organization Detai ls LastModified Time None Recorded Concern Status LastModified by Organization Details LastModified Time None Recorded Advance Directives Directive N: Payers Insurance Date Sequence Insurance Name Policy Number Policy Edwards Covered Member ID Edwards Member ID Guarantor Name 01/31/2025 1 [facility] - DUAL ELIGIBLE (MEDICARE REPLACEMENT/AD VANTAGE - HMO) [id number] Irina A Costa [id number] Irina A Costa 01/23/2025 1 [place] H[place] [id number] Irina A Costa [id number] Irina A Costa 10/11/2024 1 [place] [id number] Irina A Costa [id number] Irina A Costa 10/11/2024 1 [id number] Irina Yeison Costa [id number] Irina A Costa 10/11/2024 2 [place]TRADITIONA L Irina A Costa [id number] Irina A Costa 03/14/2025 2 [place]TRADITIONA L Irina A Costa [id number] Irina A Costa 01/23/2025 1 [id number] Irina Yeison Costa [id number] Irina A Costa 01/23/2025 1 [employer] (MEDICARE REPLACEMENT/AD VANTAGE - PPO) Irina A Costa [id number] Irina A Costa 10/11/2024 2 [place] Irina A Costa [id number] Irina A Costa 10/11/2024 2 [employer] (PPO) Irina A Costa [id number] Irina Costa Notes Date Note Type Note [...] neurologic complaints today.Modified Wells criteria of 0. [place] of 2.She voices no sleep-related or CPAP related issues.Patient is compliant with CPAP with an apnea plus hypopnea index of 0.7. Patient had a sleep study that revealed an apnea plus hypopnea index of 29, she spent 86% of the night above 90% saturation, lowest saturation recorded was 76%. She follows with Dr. Sawyer and a magazine supervisor. Patient was again instructed to follow-up her [...] interactions with all of the prescribed and dezo-mmc-jenyoew medications with a pharmacist, the patient again voiced understanding. The patient was instructed to go to ER if the patient does not improve or worsens, she again voiced understanding. Farhan Bae MD [address] [facility],[address], [place], [address], [place] 10/11/2024 10:49:13 11/29/2024 text/html PREVIOUS: Mrs. Natalie [...] all her comorbidities. Patient currently lives in [place] as well which is a far distance. She reports no symptoms except for worsening GERD and fatigue. CURRENT: Ms. Costa is here for follow up. She had her small bowel follow through and needs to have her pill cam. She is on weekly labs through her oncologist. Recent labs showed hemoglobin down to 7.0. She received 1st of 3 iron transfusion at [facility] today. She is scheduled for blood [...] bowel prep. Admission through the ED at [facility] would be 1 option. However patient is open to EGD/colonoscopy with Dr. Lopez in [place] since it is closer. NAFISA LE NP [address], [place], [address], [facility] 11/29/2024 13:55:56 01/03/2025 text/html 59 year old [...] and colonoscopy estimated 10 years ago in [place] which were negative. She denies melena or BRBPR. She continues to follow with Cardiology, Dr. Pendleton. Ninoska Moser, CHUCK [address] [facility], [address], [place], [address], [facility] 01/05/2025 12:06:47 01/23/2025 text/html PREVIOUS: Mrs. Natalie [...] all her comorbidities. Patient currently lives in [place] as well which is a far distance. She reports no symptoms except for worsening GERD and fatigue. PREVIOUS: Ms. Costa is here for follow up. She had her small bowel follow through and needs to have her pill cam. She is on weekly labs through her oncologist. Recent labs showed hemoglobin down to 7.0. She received 1st of 3 iron transfusion at [facility] today. She is scheduled for blood [...] bowel prep. Admission through the ED at [facility] would be 1 option. However patient is open to EGD/colonoscopy with Dr. Lopez in [place] since it is closer. CURRENT: Mrs. Costa is attends via [employer] today for follow up after pill cam. [...] on Audio and Video visit performed utilizing [employer] HIPAA compliant platform. Participants: patient and provider. Locations of each: Patient is at their home in [place], Provider is at the office in [place], [place]. Verbal consent was obtained before the start of the appointment obtained. NAFISA LE NP [address], [place], [address], [place] 01/23/2025 16:28:33 OBGyn Episode No OBEpisode recorded.
--- OUTSIDE RECORDS SUMMARY | 2025-05-30 12:59 | XMS_ITS | Encounter Summary ---
Author Organization [employer] ([place], [place], [place], [place]) Address [address] [place] [address] Care Team Providers Care Clerical And Administrative Workers Name Role Phone Reji Castro MD Primary Care Provider + [phone] Encounter Details Date Type Department Care Team (Late st Contact Info) Description 08/21/2021 Transcribed Document [facility] [place] [place] Family Medicine [address] [place] [address] ProviderDelvin MD [address] [place] [address] [id number] Social History Tobacco Use Types Packs/Day Years [...] on filedocumented in this encounter Care Teams Clerical And Administrative Workers Relationship Specialty Start Date End Date Reji Castro MD [address] [place] [address] PCP - General Adolescent Medicine 10/02/22 documented as of this encounter
--- OUTSIDE RECORDS SUMMARY | 2025-05-30 12:59 | XMS_ITS | Encounter Summary ---
Author Organization [employer] ([place], [place], [place], [place]) Address [address] [place] [address] Care Team Providers Care Color Blender Name Role Phone Reji Castro MD Primary Care Provider + [phone] Encounter Details Date Type Department Care Team (Late st Contact Info) Description 08/27/2021 Transcribed Document [facility] [place] [facility] [place] [address] ProviderDelvin MD [address] [place] [id number] Social History Tobacco Use Types Packs/Day Years [...] On: 08/27/2021 14:36 EDT by SHAISTA WOLFF Nurse Auditor Final Discharge Planning Discharge Arrangements : Patient [...] Services (Related/SOC within 3 days)-06 SHAISTA WOLFF Nurse Auditor - 08/27/2021 14:36 EDT Final Narrative Note Final Narrative Note : Admission day 16, on room air to discharge home today, transport via s/o Jorge, who will assist with care. Home health for lab work and Port-a cath care via [employer] ([phone]/Radha Souza), IV Abx via [facility], they will deliver medication to patient's home this evening and patient was taught at bedside how to give herself the infusion, patient's follow up [facility] (via [facility] [phone]/cBrett) appt set for 09/03/2021 at 0900. All other appointments in place via Virtual RN. Pt, RN aware and in agreement with plan. SHAISTA WOLFF Social Worker - 08/27/2021 14:36 EDT Electronically signed by Lanny [facility] Conversion Teacher Learning Disabled Cerner at 03/09/2023 8:58 PM CDT documented in this encounter Plan of Treatment Not on file documented as of this encounter Visit Diagnoses Not on filedocumented in this encounter Care Teams Color Blender Relationship Specialty Start Date End Date Reji Castro MD [address] [place] [address] [place] [address] PCP - General Adolescent Medicine 10/02/22 documented as of this encounter
--- OUTSIDE RECORDS SUMMARY | 2025-05-30 12:59 | XMS_ITS | Encounter Summary ---
Author Organization [employer] ([place], [place], [place], [place]) Address [address] [place] [address] Care Team Providers Care Crozer Operator Name Role Phone Reji Castro MD Primary Care Provider [phone] Reason for Referral * Ultrasound (Routine) - Closed Specialty Diagnoses / Procedures Referred By Contac t Referred To Contact Diagnoses Acute renal failure, unspecified acute renal failure type (HCC) Procedures Ultrasound head neck soft tissue Marion Umana MD Phone: tel: fax: Referral ID Status Reason Start Date Expiration Date Visits Re quested Visits Authorized [id number] Closed 09/28/2022 03/27/2023 1 1 Encounter Details Date Type Department Care Team (Late st Contact Info) Description 09/28/2022 Outside Orders [facility] Central Scheduling [address] [place] [address] Marion Umana MD [facility] [address] [place] [address] Acute renal failure, unspecified acute renal failure [...] Primary documented in this encounter Care Teams Crozer Operator Relationship Specialty Start Date End Date Reji Castro MD [address] [place], [place] [address] PCP - General Adolescent Medicine 10/02/22 documented as of this encounter
--- OUTSIDE RECORDS SUMMARY | 2025-05-30 12:59 | XMS_ITS | Encounter Summary ---
Author Organization [employer] ([place], [place], [place], [place]) Address [address] [place] [address] Care Team Providers Care Sound Engineering Technician Name Role Phone Reji Castro MD Primary Care Provider + [phone] Encounter Details Date Type Department Care Team (Late st Contact Info) Description 08/11/2021 Transcribed Document [facility] [place] [address] [place] [address] ProviderDelvin MD [address] [place] [address] [id number] Social History Tobacco Use Types Packs/Day Years [...] 08/12/2021 9:31 EDT Electronically signed by Lanny [facility] Conversion Outpatient Coordinator Cerner at 03/09/2023 9:00 PM CDT documented in this encounter Plan of Treatment Not on file documented as of this encounter Visit Diagnoses Not on filedocumented in this encounter Care Teams Sound Engineering Technician Relationship Specialty Start Date End Date Reji Castro MD [address] [place] [address] PCP - General Adolescent Medicine 10/02/22 documented as of this encounter
--- OUTSIDE RECORDS SUMMARY | 2025-05-30 12:59 | XMS_ITS | Encounter Summary ---
Author Organization [employer] ([place], [place], [place], [place]) Address [address] [place] [address] Care Team Providers Care Antique Jewelry Repairer Name Role Phone Reji Castro MD Primary Care Provider + [phone] Encounter Details Date Type Department Care Team (Late st Contact Info) Description 08/27/2021 Transcribed Document [facility] [place] Family [place] [address] ProviderDelvin MD [address] [place] [phone] Social History Tobacco Use Types Packs/Day Years [...] Warfarin HPI: 56 y/o F presenting to [facility] with history of COPD, atrial fibrillation, CKD [...] Acosta 3). Daily INR Will followZeyad PharmD, [facility] [phone] Electronically signed by Lanny [facility] Conversion Quality Improvement Manager Cerner at 03/09/2023 8:32 PM CDT documented in this encounter Plan of Treatment Not on file documented as of this encounter Visit Diagnoses Not on filedocumented in this encounter Care Teams Antique Jewelry Repairer Relationship Specialty Start Date End Date Reji Castro MD [address] [place] [address] PCP - General Adolescent Medicine 10/02/22 documented as of this encounter
--- OUTSIDE RECORDS SUMMARY | 2025-05-30 12:59 | XMS_ITS | Encounter Summary ---
Author Organization [employer] ([place], [place], [place], [place]) Address [address] [place] [address] Care Team Providers Care Clinical Rn Liaison Name Role Phone Reji Castro MD Primary Care Provider + [phone] Encounter Details Date Type Department Care Team (Late st Contact Info) Description 08/22/2021 Transcribed Document [facility] [place] [facility] [place] [address] ProviderDelvin MD [address] [place] [address] [id number] Social History Tobacco Use Types Packs/Day Years Used Date Smoking Tobacco: Never Assessed Comments Unknown Sex and Gender Information Value Date Recorded Sex Assigned at Not on file Legal Sex Female 4:32 PM CDT Gender Identity Not on file Sexual Orientation Not on file documented as of this encounter Miscellaneous Notes * Cerner Conversion Note - Historical ProviderMD - 08/22/2021 2:00 AM CDT Board Certified Arts Therapist Details Entered On: 08/22/2021 4:12 EDT Performed [...] filedocumented in this encounter Care Teams Clinical Rn Liaison Relationship Specialty Start Date End Date Reji Castro MD [address] [place] [id number] PCP - General Adolescent Medicine 10/02/22 documented as of this encounter
--- OUTSIDE RECORDS SUMMARY | 2025-05-30 12:59 | XMS_ITS | Encounter Summary ---
Author Organization [employer] ([place], [place], [place], [place]) Address [address] [place] [address] Care Team Providers Care Journalism Internship Name Role Phone Reji Tovar MD Primary Care Provider + [phone] Encounter Details Date Type Department Care Team (Late st Contact Info) Description 08/27/2021 Transcribed Document [facility] [place] [facility] [place] [address] ProviderDelvin MD [address] [place] [address] [id number] Social History Tobacco Use Types Packs/Day Years [...] take to pcp f/u Depression Celexa Pain [place] 10 mg every 6 hours as needed Procedures SN - Proc - Procedure: Vascular Access Insertion (08/19/21 08:00:32)ATE OF PROCEDURE: 08/19/2021 SURGEON: Nena Holliday MD 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 PROCEDURE PERFORMED: Right IJ PowerPort placement. CATALYST IMPREGNATOR: Cherri Ya. ANESTHESIA: Local MAC. FINDINGS: An 8-Libyan single lumen PowerPort was placed using a [...] and J-wire followed by passage of the 8-Libyan single-lumen catheter. Once again, fluoroscopy was used [...] taken to the Recovery in stable condition. /[id number] Nena Holliday MD JMH/AQ [1] Operative Report [...] back to her room in stable condition. /[id number] MD GERMAINE Pollard/AQ / DOTTIE / MODL /[id number] Signature Line Electronically Signed on 08/14/2021 11:35 [...] past, CAD, mitral valve replacement presents to [facility] emergency department in [place] after being told by outside provider that [...] what doses. She was seen by our floorleader with no new findings, rec to f/u with her usual floorleader. Vital Signs T: 36.4 ??C TMIN: 36.4 [...] 2 g injection 2 Gram, IV Piggyback, [id number] Celexa 40 mg oral tablet 40 mg [...] -- Start: 08/19/21 9:34:00 EDT, 60 gm carbs:[id number] kori, Isolation: Standard Precautions, Instructions: Diabetic Diet Follow Up Labs/Studies Blood Gases (Current Encounter/Past 24 Hours) No Blood Gas Results Found (Past 24 Hours) Electrolytes(BMP) Results (Current Encounter/Past 24 Hours) Sodium Level 137 mmol/L 08/27/2021 05:09 Potassium Level 4.0 mmol/L 08/27/2021 05:09 Chloride Level 97 mmol/L LOW 08/27/2021 05:09 Carbon Dioxide Level 36 mmol/L AR 08/27/2021 05:09 Anion Gap 8 LOW 08/27/2021 05:09 Blood Urea Nitrogen 22 mg/dL 08/27/2021 05:09 Glucose Level 140 mg/dL AR 08/27/2021 05:09 Calcium Level 9.5 mg/dL 08/27/2021 05:09 Creatinine Level 1.40 mg/dL AR 08/27/2021 05:09 Cardiac Markers (Current Encounter/Past 24 [...] LOW 08/27/2021 05:09 Creatinine Level 1.40 mg/dL AR 08/27/2021 05:09 eGFR 47 mL/min/1.73m2 LOW 08/27/2021 05:09 Sodium Level 137 mmol/L 08/27/2021 05:09 Potassium Level 4.0 mmol/L 08/27/2021 05:09 Chloride Level 97 mmol/L LOW 08/27/2021 05:09 Carbon Dioxide Level 36 mmol/L AR 08/27/2021 05:09 Anion Gap 8 LOW 08/27/2021 05:09 Blood Urea Nitrogen 22 mg/dL 08/27/2021 05:09 Glucose Level 140 mg/dL AR 08/27/2021 05:09 Calcium Level 9.5 mg/dL 08/27/2021 05:09 Coagulation Results (Current Encounter/Past 24 Hours) PT 26.0 Second(s) AR 08/27/2021 05:04 INR 2.6 AR 08/27/2021 05:04 Creatinine Clearance (Current Encounter/Past 24 Hours) Creatinine Level 1.40 mg/dL AR 08/27/2021 08:46 Bun/Creatinine 15.7 08/27/2021 05:09 Estimated [...] 08/11/2021 20:36 EDT Electronically signed by Lanny [facility] Conversion Sales And Marketing Director Cerner at 03/09/2023 8:54 PM CDT documented in this encounter Plan of Treatment Not on file documented as of this encounter Visit Diagnoses Not on filedocumented in this encounter Care Teams Journalism Internship Relationship Specialty Start Date End Date Reji Tovar MD [address] [place] [id number] PCP - General Adolescent Medicine 10/02/22 documented as of this encounter
--- OUTSIDE RECORDS SUMMARY | 2025-05-30 12:59 | XMS_ITS | Encounter Summary ---
Author Organization [email or web address] ([place], [place], [place], [place]) Address [address] [place] [address] Care Team Providers Care Musculoskeletal Physician Name Role Phone Reji Castro MD Primary Care Provider + [phone] Encounter Details Date Type Department Care Team (Late st Contact Info) Description 08/13/2021 Transcribed Document [facility] [place] Family Medicine [address] [place] [address] ProviderDelvin MD [address] [place] [address] [id number] Social History Tobacco Use Types Packs/Day Years [...] on filedocumented in this encounter Care Teams Musculoskeletal Physician Relationship Specialty Start Date End Date Reji Castro MD [address] [place] [id number] PCP - General Adolescent Medicine 10/02/22 documented as of this encounter
--- OUTSIDE RECORDS SUMMARY | 2025-05-30 12:59 | XMS_ITS | Encounter Summary ---
Author Organization [employer] ([place], [place], [place], [place]) Address [address] [place] [address] Care Team Providers Care Director Occupational Name Role Phone Reji Castro MD Primary Care Provider [phone] Encounter Details Date Type Department Care Team (Late st Contact Info) Description 08/22/2021 Transcribed Document [facility] Radiology 1 [place] [address] Loren Solorzano MD [address] [place] [address] [place] [address] Social History Tobacco Use Types Packs/Day Years [...] cefTRIAXone: 2 Gram, 100 mL/Hr, IV Piggyback, [id number] diphenhydrAMINE: 25 mg, Oral, Q6H, PRN: Itching [...] Oral, BID cefTRIAXone 2 Gram, IV Piggyback, [id number] citalopram 20 mg tab 40 mg 2 [...] Bioprosthetic mitral valve replacement / SNOMED CT 484207263 / Confirmed Chronic kidney disease / SNOMED CT 2394354929 / Confirmed COPD - Chronic obstructive pulmonary disease / SNOMED CT 711606176 / Confirmed History of obstructive sleep apnea / IMO 61183147 / Confirmed HLD - Hyperlipidemia / SNOMED CT 060135814 / Confirmed HTN - Hypertension / SNOMED CT 2541890993 / Confirmed Canceled: Atrial fibrillation / SNOMED CT 18962155, Active Problems (25) AIHA (autoimmune hemolytic anemia) [...] Hold home meds SSI #Depression Celexa #Pain [place] 10 mg every 6 hours as needed CODE STATUS. Full code Dispo: Given patient with history of multiple transfusion we will keep patient in the hospital on heparin drip and Coumadin till INR therapeutic need IV abx, at least until 09/08. Discussed with case therapist. and pharmcy Time spent 25 minutes documented in this encounter Plan of Treatment Not on file documented as of this encounter Visit Diagnoses Not on filedocumented in this encounter Care Teams Director Occupational Relationship Specialty Start Date End Date Reji Castro MD [address] [place] [id number] PCP - General Adolescent Medicine 10/02/22 documented as of this encounter
--- OUTSIDE RECORDS SUMMARY | 2025-05-30 12:59 | XMS_ITS | Encounter Summary ---
Author Organization [employer] ([place], [place], [place], [place]) Address [address] [place] [address] Care Team Providers Care Finance Mgr Name Role Phone Reji Castro MD Primary Care Provider + [phone] Encounter Details Date Type Department Care Team (Late st Contact Info) Description 08/21/2021 Transcribed Document [facility] [place] [facility] [place] [address] ProviderDelvin MD [address] [place] [id number] Social History Tobacco Use Types Packs/Day Years Used Date Smoking Tobacco: Never Assessed Comments Unknown Sex and Gender Information Value Date Recorded Sex Assigned at Not on file Legal Sex Female 4:32 PM CDT Gender Identity Not on file Sexual Orientation Not on file documented as of this encounter Miscellaneous Notes * Cerner Conversion Note - Historical ProviderMD - 08/21/2021 2:00 AM CDT Ampoule Washing Machine Operator Details Entered On: 08/21/2021 6:32 EDT Performed [...] on filedocumented in this encounter Care Teams Finance Mgr Relationship Specialty Start Date End Date Reji Castro MD [address] [place] [id number] PCP - General Adolescent Medicine 10/02/22 documented as of this encounter
--- OUTSIDE RECORDS SUMMARY | 2025-05-30 12:59 | XMS_ITS | Encounter Summary ---
Author Organization [employer] ([place], [place], [place], [place]) Address [address] [place] [address] Care Team Providers Care Apparel Manager Name Role Phone Reji Castro MD Primary Care Provider + [phone] Encounter Details Date Type Department Care Team (Late st Contact Info) Description 08/15/2021 Transcribed Document [facility] [place] [facility] [place] [address] ProviderDelvin MD [address] [place] [address] [phone] Social History Tobacco Use Types Packs/Day Years [...] on filedocumented in this encounter Care Teams Apparel Manager Relationship Specialty Start Date End Date Reji Castro MD [address] [place] [address] PCP - General Adolescent Medicine 10/02/22 documented as of this encounter
--- OUTSIDE RECORDS SUMMARY | 2025-05-30 12:59 | XMS_ITS | Encounter Summary ---
Author Organization [employer] ([place], [place], [place], [place]) Address [address] [place] [address] Care Team Providers Care Shipper/Receiver Name Role Phone Reji Castro MD Primary Care Provider + [phone] Encounter Details Date Type Department Care Team (Late st Contact Info) Description 08/24/2021 Transcribed Document [facility] [place] [facility] [place] [address] ProviderDelvin MD [address] [place] [address] [phone] Social History Tobacco Use Types Packs/Day Years Used Date Smoking Tobacco: Never Assessed Comments Unknown Sex and Gender Information Value Date Recorded Sex Assigned at Not on file Legal Sex Female 4:32 PM CDT Gender Identity Not on file Sexual Orientation Not on file documented as of this encounter Miscellaneous Notes * Cerner Conversion Note - Historical ProviderMD - 08/24/2021 2:00 AM CDT Head Of Training And Development Details Entered On: 08/24/2021 0:53 EDT Performed [...] on filedocumented in this encounter Care Teams Shipper/Receiver Relationship Specialty Start Date End Date Reji Castro MD [address] [place] [id number] PCP - General Adolescent Medicine 10/02/22 documented as of this encounter
--- OUTSIDE RECORDS SUMMARY | 2025-05-30 13:00 | XMS_ITS | Encounter Summary ---
Author Organization [facility] Address [address] [place] [address] Care Team Providers Care Crepe Machine Operator Name Role Phone Reji Castro MD Primary Care Provider [phone] Encounter Details Date Type Department Care Team (Late st Contact Info) Description 05/07/2025 Orders Only External Location [address] [place] [address] Provider, External Social History Tobacco Use Types [...] place to sleep or slept in a usp (including now)? No 11/19/2023 Utilities Answer Date [...] Description 06/25/2025 1:40 PM EDT Office Visit [facility] Nephrology, Bone [facility] Mineral Metabolism [address], [address] [place] [address] documented as of this encounter [...] documented as of this encounter Care Teams Crepe Machine Operator Relationship Specialty Start Date End Date Reji Castro MD [address] [place] [address] PCP - General Internal Medicine 12/08/23 documented as of this encounter
--- OUTSIDE RECORDS SUMMARY | 2025-05-30 13:00 | XMS_ITS | Encounter Summary ---
Author Organization [employer] ([place], [place], [place], [place]) Address [address] [place] [address] Care Team Providers Care Assigner Name Role Phone Reji Castro MD Primary Care Provider + [phone] Encounter Details Date Type Department Care Team (Late st Contact Info) Description 08/13/2021 Transcribed Document [facility] [place] Family Medicine [address] [place] [address] ProviderDelvin MD [address] [place] [id number] Social History Tobacco Use Types Packs/Day Years [...] on filedocumented in this encounter Care Teams Assigner Relationship Specialty Start Date End Date Reji Castro MD [address] [place] [address] PCP - General Adolescent Medicine 10/02/22 documented as of this encounter
--- OUTSIDE RECORDS SUMMARY | 2025-05-30 13:00 | XMS_ITS | Encounter Summary ---
Author Organization [employer] ([place], [place], [place], [place]) Address [address] [place] [address] Care Team Providers Care Area Supervisor Name Role Phone Reji Castro MD Primary Care Provider [phone] Encounter Details Date Type Department Care Team (Late st Contact Info) Description 08/18/2021 Transcribed Document [facility] Radiology 1 [place] [address] Loren Solorzano MD [address] [place] [address] [place] [address] Social History Tobacco Use Types Packs/Day Years [...] Bioprosthetic mitral valve replacement / SNOMED CT 886104865 / Confirmed Chronic kidney disease / SNOMED CT 5768724096 / Confirmed COPD - Chronic obstructive pulmonary disease / SNOMED CT 697118862 / Confirmed History of obstructive sleep apnea / IMO 26300555 / Confirmed HLD - Hyperlipidemia / SNOMED CT 434595896 / Confirmed HTN - Hypertension / SNOMED CT 0545934764 / Confirmed Canceled: Atrial fibrillation / SNOMED CT 40180319, Active Problems (25) AIHA (autoimmune hemolytic anemia) [...] 18:12) 98.2 (AUG 17:) Apical HR 75 ([facility] 20:10) 75 ([facility] 20:10) 75 ([facility] 20:10) Mon HR 63 (AUG 18 06:) 63 (AUG 18 06:29) 84 ([facility] 18:12) Resp Rate 18 (AUG 18 06:) 16 (AUG 17 22:27) 18 (AUG 18 06:29) SBP 105 (AUG 18 06:29) 101 (AUG 17 22:27) 107 ([facility] 02:02) DBP L 53 (AUG 18 06:29) L 45 (AUG 17 18:12) 61 (AUG 17 22:27) MAP 77 (AUG 18 06:29) 70 ([facility] 18:12) 78 ([facility] 22:27) SpO2 95 (AUG 18 06:29) L [...] 50 mL 700 mg, IV Piggyback, Inj, Q14TCuy, infuse over 30 Minute(s), Routine, Start 08/14/21 [...] Hold home meds SSI #Depression Celexa #Pain [place] 10 mg every 6 hours as needed [...] on filedocumented in this encounter Care Teams Area Supervisor Relationship Specialty Start Date End Date Reji Castro MD [address] [place] [id number] PCP - General Adolescent Medicine 10/02/22 documented as of this encounter
--- OUTSIDE RECORDS SUMMARY | 2025-05-30 13:00 | XMS_ITS | Encounter Summary ---
Author Organization [employer] ([place], [place], [place], [place]) Address [address] [place] [address] Care Team Providers Care Research Contracts Supervisor Name Role Phone Reji Castro MD Primary Care Provider + [phone] Encounter Details Date Type Department Care Team (Late st Contact Info) Description 08/24/2021 Transcribed Document [facility] [place] [facility] [place] [address] ProviderDelvin MD [address] [place] [address] [phone] Social History Tobacco Use Types Packs/Day Years [...] cefTRIAXone: 2 Gram, 100 mL/Hr, IV Piggyback, K48INop diphenhydrAMINE: 25 mg, Oral, Q6H, PRN: Itching [...] Oral, BID cefTRIAXone 2 Gram, IV Piggyback, C46YXep citalopram 20 mg tab 40 mg 2 [...] Bioprosthetic mitral valve replacement / SNOMED CT 769448150 / Confirmed Chronic kidney disease / SNOMED CT 1762939255 / Confirmed COPD - Chronic obstructive pulmonary disease / SNOMED CT 312072041 / Confirmed History of obstructive sleep apnea / IMO 64080655 / Confirmed HLD - Hyperlipidemia / SNOMED CT 628019269 / Confirmed HTN - Hypertension / SNOMED CT 3012346973 / Confirmed Canceled: Atrial fibrillation / SNOMED CT 13368166, Active Problems (25) AIHA (autoimmune hemolytic anemia) [...] Monitor GFR adjust medications. Electronically signed by [facility] Conversion Nonfarm Animal Caretaker Cerner at 03/09/2023 8:38 PM CDT documented in this encounter Plan of Treatment Not on file documented as of this encounter Visit Diagnoses Not on filedocumented in this encounter Care Teams Research Contracts Supervisor Relationship Specialty Start Date End Date Reji Castro MD [address] [place] [id number] PCP - General Adolescent Medicine 10/02/22 documented as of this encounter
--- OUTSIDE RECORDS SUMMARY | 2025-05-30 13:00 | XMS_ITS | Encounter Summary ---
Author Organization [employer] ([place], [place], [place], [place]) Address [address] [place] [address] Care Team Providers Care Locket Maker Name Role Phone Reji Castro MD Primary Care Provider + [phone] Encounter Details Date Type Department Care Team (Late st Contact Info) Description 08/13/2021 Transcribed Document [facility] [place] [address] ProviderDelvin MD [address] [place], [place] [phone] Social History Tobacco Use Types Packs/Day Years [...] On: 08/13/2021 7:24 EDT by Marline Leija, Manufactured Buildings Supervisor Primary Insurance Authorization Authorization and Policy Numbers : Insurance 1 Health Plan: [employer] PPO Policy Number: [id number] Authorization Number: Insurance 2 Health Plan: [place] Policy Number: [id number] Authorization Number: Insurance Primary Name : [employer] PPO Policy Number: [id number] Authorization Status-Primary : Notification only Reference Number-Primary : [id number] Authorization Number-Primary : [id number] Authorized Service Begin Date-Primary : 08/11/2021 EDT Authorization Comments-Primary : Authorized per email from Khari Dallas, RN. Historical Authorization Comments-Primary : Comment 1: Pend ref no per Availity, reviewer has access to [employer] (JORGE VALLES RN 08/12/2021 14:07) Marline Leija, Manufactured Buildings Supervisor - 08/13/2021 7:24 EDT Electronically signed by Lanny [facility] Conversion Package Maker Cerner at 03/09/2023 8:49 PM CDT documented in this encounter Plan of Treatment Not on file documented as of this encounter Visit Diagnoses Not on filedocumented in this encounter Care Teams Locket Maker Relationship Specialty Start Date End Date Reji Castro MD [address] [place] [id number] PCP - General Adolescent Medicine 10/02/22 documented as of this encounter
--- OUTSIDE RECORDS SUMMARY | 2025-05-30 13:00 | XMS_ITS | Clinical Summary ---
Author Organization [facility] Address [address] [facility] [address] [place] [address] Phone Care Team Providers Care Independent Crop Consultant Name Role Phone Joan Moore MD [ [...] other specified staphylococcus Autoimmune hemolytic anemia, unspecified 682080127 (SNOMED CT) Active 0 Lisa Torres Autoimmune hemolytic anemia COPD 85995516 (SNOMED CT) Active 0 Lisa Torres Chronic obstructive pulmonary disease Presence of prosthetic heart valve Z95.2 (ICD-10-CM) Active 0 Lisa Torres Presence of prosthetic heart valve HTN CKD, bgn, 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) 7586922 (SNOMED CT) Active 0 Lisa Torres Benign essential hypertension Medications Medication Instructions Start Date Stop Date Generic Name [facility] Provider CEFTRIAXONE SODIUM 1 GM SOLR 2gm IV Q 24hrs through 09/08 [employer] [phone] ceftriaxone 35968238312 [place] LEVOTHYROXINE SODIUM 25 MCG TABS TAKE 1 TABLET BY MOUTH DAILY levothyroxine 94340992704 Belkis Mattson BUMETANIDE 2 MG TABS bumetanide 90699798763 Belkis Mattson DEXILANT 60 MG CPDR dexlansoprazole 69178630276 Belkis Mattson OLOPATADINE HCL 0.2 % SOLN olopatadine 51702895744 Belkis Mattson ALPRAZOLAM 0.5 MG TABS alprazolam 87810492171 Belkis Mattson WARFARIN SODIUM 4 MG TABS warfarin 32483312760 Belkis Mattson SPIRONOLACTONE 25 MG TABS TAKE 1 TABLET BY MOUTH ONCE A DAY. spironolactone 52605964285 Belkis Mattson FOLIC ACID 1 MG TABS TAKE 1 TABLET BY MOUTH ONCE A DAY. folic acid 35716401951 Belkis Mattson RAMY ASPIRIN EC LOW DOSE 81 MG TBEC aspirin 59421140236 Belkis Mattson CELEXA 40 MG TABS citalopram 02170848573 Belkis Mattson docusate sodium unspecified unspecified docusate sodium 15632514547 Angelita Mattson FAMOTIDINE 20 MG TABS famotidine 15630828802 Belkis Mattson PERCOCET 10-325 MG TABS oxycodone-acetam i nophen 58606201509 Belkis Mattson TOPROL XL 25 MG [id number] metoprolol succinate 55088141628 Belkis Mattson CEFTRIAXONE SODIUM 1 GM SOLR 2gm IV Q 24hrs through 09/08 HH [facility] HH [phone] ceftriaxone 84852166933 [facility] Medications Administered No information available. [...]
--- OUTSIDE RECORDS SUMMARY | 2025-05-30 13:00 | XMS_ITS | Encounter Summary ---
Author Organization [employer] ([place], [place], [place], [place]) Address [address] [place] [address] Care Team Providers Care Wine Steward Name Role Phone Reji Castro MD Primary Care Provider [phone] Encounter Details Date Type Department Care Team (Late st Contact Info) Description 08/23/2021 Transcribed Document [facility] Radiology [address] [place] [address] Loren Solorzano MD [address] [place] [address] [place] [address] Social History Tobacco Use Types Packs/Day Years [...] cefTRIAXone: 2 Gram, 100 mL/Hr, IV Piggyback, A64DDhy diphenhydrAMINE: 25 mg, Oral, Q6H, PRN: Itching [...] Oral, BID cefTRIAXone 2 Gram, IV Piggyback, W83VArl citalopram 20 mg tab 40 mg 2 [...] Bioprosthetic mitral valve replacement / SNOMED CT 450816132 / Confirmed Chronic kidney disease / SNOMED CT 4557916408 / Confirmed COPD - Chronic obstructive pulmonary disease / SNOMED CT 377064571 / Confirmed History of obstructive sleep apnea / IMO 37571302 / Confirmed HLD - Hyperlipidemia / SNOMED CT 266173659 / Confirmed HTN - Hypertension / SNOMED CT 2973959354 / Confirmed Canceled: Atrial fibrillation / SNOMED CT 85113690, Active Problems (25) AIHA (autoimmune hemolytic anemia) [...] 26.0 \ Radiology Results (Last 48 hours) [id number] -- 08/11/2021 21:21 CR Chest 1 Vw [...] Hold home meds SSI #Depression Celexa #Pain [place] 10 mg every 6 hours as needed CODE STATUS. Full code Dispo: Given patient with history of multiple transfusion we will keep patient in the hospital on heparin drip and Coumadin till INR therapeutic need IV abx, at least until 09/08. Discussed with patient case coordinator. and pharmcy Time spent 25 minutes documented in this encounter Plan of Treatment Not on file documented as of this encounter Visit Diagnoses Not on filedocumented in this encounter Care Teams Wine Steward Relationship Specialty Start Date End Date Reji Castro MD [address] [place] [address] PCP - General Adolescent Medicine 10/02/22 documented as of this encounter
--- OUTSIDE RECORDS SUMMARY | 2025-05-30 13:00 | XMS_ITS | Encounter Summary ---
Author Organization [employer] ([place], [place], [place], [place]) Address [address] [place] [address] Care Team Providers Care Perfect Bind Machine Operator Name Role Phone Reji Castro MD Primary Care Provider + [phone] Encounter Details Date Type Department Care Team (Late st Contact Info) Description 08/23/2021 Transcribed Document [facility] [place] [address] [place] [address] ProviderDelvin MD [address] [place] [phone] Social History Tobacco Use Types Packs/Day Years [...] on filedocumented in this encounter Care Teams Perfect Bind Machine Operator Relationship Specialty Start Date End Date Reji Castro MD [address] [place] [id number] PCP - General Adolescent Medicine 10/02/22 documented as of this encounter
--- OUTSIDE RECORDS SUMMARY | 2025-05-30 13:00 | XMS_ITS | Encounter Summary ---
Author Organization [employer] ([place], [place], [place], [place]) Address [address] [place] [address] Care Team Providers Care Anime Designer Name Role Phone Reji Castro MD Primary Care Provider [phone] Encounter Details Date Type Department Care Team (Late st Contact Info) Description 08/24/2021 Transcribed Document [facility] [place] [facility] [address] [place] [address] Loren Solorzano MD [address] [place] [address] [place] [address] Social History Tobacco Use Types Packs/Day Years [...] cefTRIAXone: 2 Gram, 100 mL/Hr, IV Piggyback, [id number] diphenhydrAMINE: 25 mg, Oral, Q6H, PRN: Itching [...] Oral, BID cefTRIAXone 2 Gram, IV Piggyback, [id number] citalopram 20 mg tab 40 mg 2 [...] Bioprosthetic mitral valve replacement / SNOMED CT 629628922 / Confirmed Chronic kidney disease / SNOMED CT 3267012321 / Confirmed COPD - Chronic obstructive pulmonary disease / SNOMED CT 067148923 / Confirmed History of obstructive sleep apnea / IMO 00778265 / Confirmed HLD - Hyperlipidemia / SNOMED CT 603190238 / Confirmed HTN - Hypertension / SNOMED CT 4894938899 / Confirmed Canceled: Atrial fibrillation / SNOMED CT 12126834, Active Problems (25) AIHA (autoimmune hemolytic anemia) [...] 26.6 \ Radiology Results (Last 48 hours) [id number] -- 08/11/2021 21:21 CR Chest 1 Vw [...] Hold home meds SSI #Depression Celexa #Pain Delancey 10 mg every 6 hours as needed CODE STATUS. Full code Dispo: Given patient with history of multiple blood transfusion we will keep patient in the hospital on heparin drip and Coumadin till INR therapeutic need IV abx, at least until 09/08. Discussed with bottle caser. and pharmcy Time spent 25 minutes documented in this encounter Plan of Treatment Not on file documented as of this encounter Visit Diagnoses Not on filedocumented in this encounter Care Teams Anime Designer Relationship Specialty Start Date End Date Reji Castro MD [address] [place] [address] PCP - General Adolescent Medicine 10/02/22 documented as of this encounter
--- OUTSIDE RECORDS SUMMARY | 2025-05-30 13:00 | XMS_ITS | Encounter Summary ---
Author Organization [employer] ([place], [place], [place], [place]) Address [address] [place] [address] Care Team Providers Care Auto Motor Mechanic Name Role Phone Reji Castro MD Primary Care Provider + [phone] Encounter Details Date Type Department Care Team (Late st Contact Info) Description 08/18/2021 Transcribed Document [facility] [place] [address] [place] [address] ProviderDelvin MD [address] [place] [address]341 Social History Tobacco Use Types Packs/Day Years [...] 15:44 EDT by MADINA LOVETT RN - Commissary HelperGrove Superintendent Progress Note Discharge Arrangements : Patient Post-Acute [...] Rounds? : Yes MADINA LOVETT, RN - Commissary Helper - 08/18/2021 15:44 EDT Narrative Progress Note [...] will need home health and lives in [place]. [facility] home health is a possibility. CM will [...] and send referrals as appropriate. JULIO STEWART, RN-Commissary Helper ED - 08/18/21 10:38:39 MADINA LOVETT, JEREMIAH - Commissary Helper - 08/18/2021 15:44 EDT documented in this encounter Plan of Treatment Not on file documented as of this encounter Visit Diagnoses Not on filedocumented in this encounter Care Teams Auto Motor Mechanic Relationship Specialty Start Date End Date Reji Castro MD [address] [place] [id number] PCP - General Adolescent Medicine 10/02/22 documented as of this encounter
--- OUTSIDE RECORDS SUMMARY | 2025-05-30 13:00 | XMS_ITS | Encounter Summary ---
Author Organization [employer] ([place], [place], [place], [place]) Address [address] [place] [address] Care Team Providers Care Roller Staker Name Role Phone Reji Castro MD Primary Care Provider + [phone] Encounter Details Date Type Department Care Team (Late st Contact Info) Description 08/13/2021 Transcribed Document [facility] [place] [facility] [place] [address] ProviderDelvin MD [address] [place] [address] [phone] Social History Tobacco Use Types Packs/Day Years Used Date Smoking Tobacco: Never Assessed Comments Unknown Sex and Gender Information Value Date Recorded Sex Assigned at Not on file Legal Sex Female 4:32 PM CDT Gender Identity Not on file Sexual Orientation Not on file documented as of this encounter Miscellaneous Notes * Cerner Conversion Note - Historical ProviderMD - 08/13/2021 2:00 AM CDT Pumper Gauger Details Entered On: 08/13/2021 6:35 EDT Performed [...] on filedocumented in this encounter Care Teams Roller Staker Relationship Specialty Start Date End Date Reji Csatro MD [address] [place] [id number] PCP - General Adolescent Medicine 10/02/22 documented as of this encounter
--- OUTSIDE RECORDS SUMMARY | 2025-05-30 13:00 | XMS_ITS | Encounter Summary ---
Author Organization [employer] ([place], [place], [place], [place]) Address [address] [place] [address] Care Team Providers Care Methods And Procedures Analyst Name Role Phone Reji Castro MD Primary Care Provider + [phone] Encounter Details Date Type Department Care Team (Late st Contact Info) Description 08/18/2021 Transcribed Document [facility] [place] [facility] [place] [address] ProviderDelvin MD [address] [place] [address] [phone] Social History Tobacco Use Types Packs/Day Years [...] HPI: 56 y/o F presenting to [facility] with history of COPD, atrial fibrillation, CKD [...] questions. Thank you, Andrea Moraes, PharmD PGY1 Historic Sites Registrar Pager: [phone], Ext. [phone] documented in this encounter Plan of Treatment Not on file documented as of this encounter Visit Diagnoses Not on filedocumented in this encounter Care Teams Methods And Procedures Analyst Relationship Specialty Start Date End Date Reji Castro MD [address] [place] [id number] PCP - General Adolescent Medicine 10/02/22 documented as of this encounter
--- OUTSIDE RECORDS SUMMARY | 2025-05-30 13:00 | XMS_ITS | Encounter Summary ---
Author Organization [employer] ([place], [place], [place], [place]) Address [address] [place] [address] Care Team Providers Care Electrical Fitter Name Role Phone Reji Castro MD Primary Care Provider + [phone] Encounter Details Date Type Department Care Team (Late st Contact Info) Description 08/13/2021 Transcribed Document [facility] [place] [facility] [place] [address] ProviderDelvin MD [address] [place] [address] [phone] Social History Tobacco Use Types Packs/Day Years [...] her port could not be accessed. Her long wall mining machine tender aspirated fluid from the port that was evidently purulent. I have not yet been able to track down that culture. After the aspiration she developed fever to 103, severe CHEUNG, myalgias and arthralgias. [facility]. She was in the hospital [...] subsequently contacted and told to report to [facility] because she had + blood cutures concerning for an infected portacath +/- PVE. 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 Integumentary: Warm, [place]. Neurologic: Alert, Oriented, No focal deficits. Psychiatric: [...] recommend therapy to 09/22 Electronically signed by [facility] Conversion Truck Sales Representative Cerner at 03/09/2023 8:46 PM CDT documented in this encounter Plan of Treatment Not on file documented as of this encounter Visit Diagnoses Not on filedocumented in this encounter Care Teams Electrical Fitter Relationship Specialty Start Date End Date Reji Castro MD [address] [place] [id number] PCP - General Adolescent Medicine 10/02/22 documented as of this encounter
--- OUTSIDE RECORDS SUMMARY | 2025-05-30 13:00 | XMS_ITS | Encounter Summary ---
Author Organization [employer] ([place], [place], [place], [place]) Address [address] [place] [address] Care Team Providers Care Photovoltaic Subcontractor Name Role Phone Reji Castro MD Primary Care Provider + [phone] Encounter Details Date Type Department Care Team (Late st Contact Info) Description 08/23/2021 Transcribed Document [facility] [place] [facility] [place] [address] ProviderDelvin MD [address] [place] [address] [phone] Social History Tobacco Use Types Packs/Day Years Used Date Smoking Tobacco: Never Assessed Comments Unknown Sex and Gender Information Value Date Recorded Sex Assigned at Not on file Legal Sex Female 4:32 PM CDT Gender Identity Not on file Sexual Orientation Not on file documented as of this encounter Miscellaneous Notes * [employer] Conversion Note - Historical ProviderMD - 08/23/2021 2:00 AM CDT Automotive Machinist Apprentice Details Entered On: 08/23/2021 2:15 EDT Performed On: 08/23/2021 2:00 EDT by Cecilia Lai, Rd Manager-Student Nurse Order Details Transport Mode Order Detail : Wheelchair Isolation Precautions Order Detail : Standard Precautions Order Detail : 0 IV Order Detail : 1 Oxygen Order Detail : 0 Lift/Transfer : Independent Central Line Order Detail : Yes Room Service : Appropriate Arterial Line : No Patient Needs Meds Crushed/Liquid : No Cecilia Lai, Rd Manager-Student Nurse - 08/23/2021 2:15 EDT documented in this encounter Plan of Treatment Not on file documented as of this encounter Visit Diagnoses Not on filedocumented in this encounter Care Teams Photovoltaic Subcontractor Relationship Specialty Start Date End Date Reji Castro MD [address] [place] [id number] PCP - General Adolescent Medicine 10/02/22 documented as of this encounter
--- OUTSIDE RECORDS SUMMARY | 2025-05-30 13:00 | XMS_ITS | Referral Summary ---
Author Organization [employer] ([place], [place], [place], [place]) Address [address] [place] [address] Care Team Providers Care Paper Processing Machine Helper Name Role Phone Reji Castro MD Primary Care Provider [phone] Allergies Active Allergy Reactions Criticality Noted Date [...] Advance Directives For more information, please contact: [phone] Documents on File Type Date Recorded Patient Statistical Assistant Expl anation Advance Directives and Livin g Will 10/05/2022 8:36 AM Care Teams Paper Processing Machine Helper Relationship Specialty Start Date End Date Reji Castro MD [address] [place] [address] PCP - General Adolescent Medicine 10/02/22
--- OUTSIDE RECORDS SUMMARY | 2025-05-30 13:00 | XMS_ITS | Encounter Summary ---
Author Organization [employer] ([place], [place], [place], [place]) Address [address] [place] [address] Care Team Providers Care Division Head Name Role Phone Reji Castro MD Primary Care Provider + [phone] Encounter Details Date Type Department Care Team (Late st Contact Info) Description 08/23/2021 Transcribed Document [facility] [place] [facility] [place] [address] ProviderDelvin MD [address] [place] [address] [phone] Social History Tobacco Use Types Packs/Day Years [...] On: 08/23/2021 5:00 EDT by Cecilia Lai Commercial Helicopter Pilot-Student Nurse Chart Check Powerplans Initiated/Discontinued as Appropriate : Yes All Active Orders Reviewed : Yes Cecilia Lai Commercial Helicopter Pilot-Student Nurse - 08/23/2021 5:19 EDT documented in this encounter Plan of Treatment Not on file documented as of this encounter Visit Diagnoses Not on filedocumented in this encounter Care Teams Division Head Relationship Specialty Start Date End Date Reji Castro MD [address] [place] [id number] PCP - General Adolescent Medicine 10/02/22 documented as of this encounter
--- OUTSIDE RECORDS SUMMARY | 2025-05-30 13:00 | XMS_ITS | Encounter Summary ---
Author Organization [employer] ([place], [place], [place], [place]) Address [address] [place] [address] Care Team Providers Care Referral Management Liaison Name Role Phone Reji Castro MD Primary Care Provider + [phone] Encounter Details Date Type Department Care Team (Late st Contact Info) Description 08/18/2021 Transcribed Document [facility] [place] [facility] [place] [address] ProviderDelvin MD [address] [place] [phone] Social History Tobacco Use Types Packs/Day Years [...] History of obstructive sleep apnea / IMO [id number] / Confirmed Bioprosthetic mitral valve replacement / SNOMED CT 937386089 / Confirmed Chronic kidney disease / SNOMED CT 2252072927 / Confirmed COPD - Chronic obstructive pulmonary disease / SNOMED CT 464422970 / Confirmed HTN - Hypertension / SNOMED CT 7792612425 / Confirmed HLD - Hyperlipidemia / SNOMED CT 214027028 / Confirmed Amblyopia / SNOMED CT 8857574860 / Confirmed 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 / SNOMED CT 634527426 / Confirmed Myocardial infarction / SNOMED CT 22449079 / Confirmed Atrial fibrillation / SNOMED CT 89493132 / Confirmed GERD - Gastro-esophageal reflux disease / SNOMED CT 7508452006 / Confirmed Diverticulosis / SNOMED CT 0999390281 / Confirmed Hepatomegaly / SNOMED CT 056500927 / Confirmed Renal calculus / SNOMED CT 363715747 / Confirmed Ovarian cyst / SNOMED CT 791804669 / Confirmed Arthritis / SNOMED CT 8562634 / Confirmed Back pain / PNED [id number] / Confirmed Fibromyalgia / SNOMED CT 23896070 / Confirmed Restless legs syndrome / SNOMED CT 86737964 / Confirmed Diabetes mellitus type II / SNOMED CT 59260652 / Confirmed Thyroid disease / SNOMED CT 434074111 / Confirmed Edema / SNOMED CT 131692797 / Confirmed BLE neuropathy hands and feet / Confirmed frequent headache / Confirmed AIHA (autoimmune hemolytic anemia) / SNOMED CT 8190925631 / Confirmed, Active Problems (25) AIHA (autoimmune [...] on filedocumented in this encounter Care Teams Referral Management Liaison Relationship Specialty Start Date End Date Reji Castro MD [address] [place] [address] PCP - General Adolescent Medicine 10/02/22 documented as of this encounter
--- OUTSIDE RECORDS SUMMARY | 2025-05-30 13:00 | XMS_ITS | Encounter Summary ---
Author Organization [employer] ([place], [place], [place], [place]) Address [address] [place] [address] Care Team Providers Care Millwright Name Role Phone Reji Castro MD Primary Care Provider + [phone] Encounter Details Date Type Department Care Team (Late st Contact Info) Description 08/23/2021 Transcribed Document [facility] [place] [facility] [place] [address] ProviderDelvin MD [address] [place] [phone] Social History Tobacco Use Types Packs/Day Years [...] cefTRIAXone: 2 Gram, 100 mL/Hr, IV Piggyback, [id number] diphenhydrAMINE: 25 mg, Oral, Q6H, PRN: Itching [...] Oral, BID cefTRIAXone 2 Gram, IV Piggyback, [id number] citalopram 20 mg tab 40 mg 2 [...] Bioprosthetic mitral valve replacement / SNOMED CT 162815336 / Confirmed Chronic kidney disease / SNOMED CT 8562732134 / Confirmed COPD - Chronic obstructive pulmonary disease / SNOMED CT 914790181 / Confirmed History of obstructive sleep apnea / IMO 24093635 / Confirmed HLD - Hyperlipidemia / SNOMED CT 532425944 / Confirmed HTN - Hypertension / SNOMED CT 6553142724 / Confirmed Canceled: Atrial fibrillation / SNOMED CT 49228521, Active Problems (25) AIHA (autoimmune hemolytic anemia) [...] adjust medications. Electronically signed by Lanny, [facility] Conversion Vessel Scrapper Cerner at 03/09/2023 8:48 PM CDT documented in this encounter Plan of Treatment Not on file documented as of this encounter Visit Diagnoses Not on filedocumented in this encounter Care Teams Millwright Relationship Specialty Start Date End Date Reji Castro MD [address] [place] [address] PCP - General Adolescent Medicine 10/02/22 documented as of this encounter
--- OUTSIDE RECORDS SUMMARY | 2025-05-30 13:00 | XMS_ITS | Encounter Summary ---
Author Organization [employer] ([place], [place], [place], [place]) Address [address] [place] [address] Care Team Providers Care House Furnishings Supervisor Name Role Phone Reji Castro MD Primary Care Provider + [phone] Encounter Details Date Type Department Care Team (Late st Contact Info) Description 08/18/2021 Transcribed Document [facility] [place] [facility] [place] [address] ProviderDelvin MD [address] [place] [address] [phone] Social History Tobacco Use Types Packs/Day Years [...] her port could not be accessed. Her oracle analyst aspirated fluid from the port that was evidently purulent. I have not yet been able to track down that culture. After the aspiration she developed fever to 103, severe CHEUNG, myalgias and arthralgias. She was admitted to . She was in the hospital for 10 [...] and told to report to [facility] because she had + blood cutures concerning for an infected portacath +/- PVE. 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 Integumentary: Warm, [place]. Neurologic: Alert, Oriented, No focal deficits. [...] with patient Electronically signed by Lanny [facility] Conversion Correctional Sergeant Cerner at 03/09/2023 8:49 PM CDT documented in this encounter Plan of Treatment Not on file documented as of this encounter Visit Diagnoses Not on filedocumented in this encounter Care Teams House Furnishings Supervisor Relationship Specialty Start Date End Date Reji Castro MD [address] [place] [address] PCP - General Adolescent Medicine 10/02/22 documented as of this encounter
--- OUTSIDE RECORDS SUMMARY | 2025-05-30 13:00 | XMS_ITS | Encounter Summary ---
Author Organization [employer] ([place], [place], [place], [place]) Address [address] [place] [address] Care Team Providers Care Gre Instructor Name Role Phone Reji Castro MD Primary Care Provider + [phone] Encounter Details Date Type Department Care Team (Late st Contact Info) Description 08/18/2021 Transcribed Document [facility] [place] [address] [place] [address] ProviderDelvin MD [address] [place] [address] [phone] Social History Tobacco Use Types Packs/Day Years [...] Spiritual Care Intervention/Comment/Summary Points : PreSurgery visit Jainism Preference : Adventist FAIZA ARIZA - 09/02/2021 12:43 EDT documented in this encounter Plan of Treatment Not on file documented as of this encounter Visit Diagnoses Not on filedocumented in this encounter Care Teams Gre Instructor Relationship Specialty Start Date End Date Reji Castro MD [address] [place] [address] PCP - General Adolescent Medicine 10/02/22 documented as of this encounter
--- OUTSIDE RECORDS SUMMARY | 2025-05-30 13:00 | XMS_ITS | Encounter Summary ---
Author Organization [employer] ([place], [place], [place], [place]) Address [address] [place] [address] Care Team Providers Care Rougher Merchant Mill Name Role Phone Reji Castro MD Primary Care Provider + [phone] Encounter Details Date Type Department Care Team (Late st Contact Info) Description 08/18/2021 Transcribed Document [facility] [place] [address] [place] [address] ProviderDelvin MD [address] [place] [address] [phone] Social History Tobacco Use Types Packs/Day Years [...] on filedocumented in this encounter Care Teams Rougher Merchant Mill Relationship Specialty Start Date End Date Reji Castro MD [address] [place] [id number] PCP - General Adolescent Medicine 10/02/22 documented as of this encounter
--- OUTSIDE RECORDS SUMMARY | 2025-05-30 13:00 | XMS_ITS | Encounter Summary ---
Author Organization [employer] ([place], [place], [place], [place]) Address [address] [place] [address] Care Team Providers Care Manager Water Wastewater Name Role Phone Reji Castro MD Primary Care Provider + [phone] Encounter Details Date Type Department Care Team (Late st Contact Info) Description 08/13/2021 Transcribed Document [facility] [place] [address] ProviderDelvin MD [address] [place] [phone] Social History Tobacco Use Types Packs/Day Years [...] [facility] blood due to anemia[facility] has [facility] port. [...] these transfusions about 3 years ago at [facility]. Last month she developed fever, headache, nausea, and was admitted to [facility]. CHUCHO/TTE at that time showed possible bacteria on the tip of her port. She was treated with PO antibiotics with resolution of symptoms and was discharged home with no plans for port removal. She reports a few days ago she again had headache and nausea, this time without fever. She presented to the emergency department at [facility] with blood cultures drawn which were supposedly positive for staph epi. She was subsequently told to come to [facility] ED for ID consultation. Review of [...] Diagnostic Results Radiology Results (Last 48 hours) [id number] -- 08/11/2021 21:21 CR Chest 1 Vw [...] 08/13/2021 06:13 Blood Urea Nitrogen 50 mg/dL MA 08/13/2021 06:13 Glucose Level 102 mg/dL 08/13/2021 06:13 Albumin Level 3.9 Gram/dL 08/13/2021 06:13 Bilirubin Total 0.5 mg/dL 08/13/2021 06:13 Calcium Level 9.1 mg/dL 08/13/2021 06:13 Electronically signed by [facility], [facility] Conversion Supervisor Shop Cerner at 03/09/2023 8:43 PM CDT documented in this encounter Plan of Treatment Not on file documented as of this encounter Visit Diagnoses Not on filedocumented in this encounter Care Teams Manager Water Wastewater Relationship Specialty Start Date End Date Reji Castro MD [address] [place] [address] PCP - General Adolescent Medicine 10/02/22 documented as of this encounter
--- OUTSIDE RECORDS SUMMARY | 2025-05-30 13:00 | XMS_ITS | Encounter Summary ---
Author Organization [employer] ([place], [place], [place], [place]) Address [address] [place] [address] Care Team Providers Care Meat Cutter Apprentice Name Role Phone Reji Castro MD Primary Care Provider + [phone] Encounter Details Date Type Department Care Team (Late st Contact Info) Description 08/13/2021 Transcribed Document [facility] [place] Formerly [facility] [place] [address] ProviderDelvin MD [address] [place] [address] [phone] Social History Tobacco Use Types Packs/Day Years [...] Author: CHELI BEASLEY MD-CAR Basic Information Primary Raiser Helper: Dr. Delmar Geronimo Research Staff Member: MD Nestor Subjective NAD Health Status Current [...] mL 700 mg 14 mL, IV Piggyback, [id number] DAPTOmycin + NaCl 0.9% 50 mL 700 mg 14 mL, IV Piggyback, [id number] famotidine 20 mg tab 20 mg 1 [...] of motion, Normal strength. Integumentary: Warm, Dry, [place]. Neurologic: Alert, Oriented. Psychiatric: Cooperative, Appropriate mood & affect. Results Review AUG 13 05:19 136 103 H 50 / 102 4.5 30 H 1.60 \ AUG 13 05:19 \ L 8.5 / 5.5 197 / L 28.7 \ Cardiac Markers (Current Encounter/Past 24 Hours) CK 87 Units/Liter 08/13/2021 05:53 ProBNP 587 pg/mL HI 08/13/2021 05:58 Radiology Results (Last 48 hours) [id number] -- 08/11/2021 21:21 CR Chest 1 Vw [...] mechan MV, 4+ TR, no vegetation. Admitted Psychiatric 07/12, Negative CHUCHO, TTE for vegetation that [...] mechanical causes of hemolysis. Obtain records from Psychiatric. Check haptoglobin, LDH, reticulocyte count. Continue other current CV meds. documented in this encounter Plan of Treatment Not on file documented as of this encounter Visit Diagnoses Not on filedocumented in this encounter Care Teams Meat Cutter Apprentice Relationship Specialty Start Date End Date Reji Castro MD [address] [place] [address] PCP - General Adolescent Medicine 10/02/22 documented as of this encounter
--- OUTSIDE RECORDS SUMMARY | 2025-05-30 13:00 | XMS_ITS | Encounter Summary ---
Author Organization [employer] ([place], [place], [place], [place]) Address [address] [place] [address] Care Team Providers Care Tax Manager Name Role Phone Reji Castro MD Primary Care Provider + [phone] Encounter Details Date Type Department Care Team (Late st Contact Info) Description 08/23/2021 Transcribed Document [facility] [place] [facility] [place] [address] ProviderDelvin MD [address] [place] [address] [phone] Social History Tobacco Use Types Packs/Day Years [...] 56 y/o F presenting to [facility] with history of COPD, atrial fibrillation, [...] cefTRIAXone: 2 Gram, 100 mL/Hr, IV Piggyback, [id number]. citalopram: 40 mg, Oral, Daily. diphenhydrAMINE: 25 [...] you, Noy Garrett, PharmD PGY-1 Resident Pager #[phone] documented in this encounter Plan of Treatment Not on file documented as of this encounter Visit Diagnoses Not on filedocumented in this encounter Care Teams Tax Manager Relationship Specialty Start Date End Date Reji Castro MD [address] [place] [id number] PCP - General Adolescent Medicine 10/02/22 documented as of this encounter
--- OUTSIDE RECORDS SUMMARY | 2025-05-30 13:00 | XMS_ITS | Encounter Summary ---
Author Organization [employer] ([place], [place], [place], [place]) Address [address] [place] [address] Care Team Providers Care Associate Professor Of Mathematics Name Role Phone Reji Castro MD Primary Care Provider + [phone] Encounter Details Date Type Department Care Team (Late st Contact Info) Description 08/18/2021 Transcribed Document [facility] [place] [address] ProviderDelvin MD [address] [place] [address] [phone] Social History Tobacco Use Types Packs/Day Years [...] # 0.52 x10(3)/uL (Low) 08/18/2021 06:56 EDT Stephens % 8.7 % 08/18/2021 06:56 EDT Stephens # 0.61 K/uL 08/18/2021 06:56 EDT Eos [...] (High) 08/18/2021 06:56 EDT Electronically signed by [facility], [facility] Conversion Engineering Production Liaison Cerner at 03/09/2023 9:00 PM CDT documented in this encounter Plan of Treatment Not on file documented as of this encounter Visit Diagnoses Not on filedocumented in this encounter Care Teams Associate Professor Of Mathematics Relationship Specialty Start Date End Date Reji Castro MD [address] [place] [id number] PCP - General Adolescent Medicine 10/02/22 documented as of this encounter
--- OUTSIDE RECORDS SUMMARY | 2025-05-30 13:00 | XMS_ITS | Encounter Summary ---
Author Organization [employer] ([place], [place], [place], [place]) Address [address] [place] [address] Care Team Providers Care Assembly Machine Tool Setter Name Role Phone Reji Castro MD Primary Care Provider + [phone] Encounter Details Date Type Department Care Team (Late st Contact Info) Description 08/13/2021 Transcribed Document [facility] [place] Family Medicine [address] [place] [address] ProviderDelvin MD [address] [place] [address] [phone] Social History Tobacco Use Types Packs/Day Years [...] On: 08/13/2021 9:56 EDT by Reina Tian, SEMICONDUCTOR WAFERS SAW OPERATOR Phone Call for Consults Consult Phone Call/Page Attempt : First call Consult Reason : paula cath infection, needing removal Physician Requested for Consult : Elieser VERNON MD-TATYANA Date and Time Call Returned : 08/14/2021 10:08 EDT Reina Tian, SEMICONDUCTOR WAFERS SAW OPERATOR - 08/13/2021 10:09 EDT documented in this encounter Plan of Treatment Not on file documented as of this encounter Visit Diagnoses Not on filedocumented in this encounter Care Teams Assembly Machine Tool Setter Relationship Specialty Start Date End Date Reji Castro MD [address] [place] [address] PCP - General Adolescent Medicine 10/02/22 documented as of this encounter
--- OUTSIDE RECORDS SUMMARY | 2025-05-30 13:01 | XMS_ITS | Encounter Summary ---
Author Organization [employer] ([place], [place], [place], [place]) Address [address] [place] [address] Care Team Providers Care Rail Operations Controller Name Role Phone Reji Castro MD Primary Care Provider + [phone] Encounter Details Date Type Department Care Team (Late st Contact Info) Description 08/13/2021 Transcribed Document [facility] [place] [address] ProviderDelvin MD [address] [place] [address] [phone] Social History Tobacco Use Types Packs/Day Years [...] Warfarin HPI: 56 y/o F presenting to [facility] [...] Encounter/Past 24 Hours) Creatinine Level 1.60 mg/dL VA 08/13/2021 06:13 Bun/Creatinine 31.2 VA 08/13/2021 06:13 Est. CrCl: 61 mL/min Intake [...] questions. Thank you, Andrea Moraes, PharmD PGY1 Field Control Inspector Pager: [phone], Ext. [phone] documented in this encounter Plan of Treatment Not on file documented as of this encounter Visit Diagnoses Not on filedocumented in this encounter Care Teams Rail Operations Controller Relationship Specialty Start Date End Date Reji Castro MD [address] [place] [address] PCP - General Adolescent Medicine 10/02/22 documented as of this encounter
--- OUTSIDE RECORDS SUMMARY | 2025-05-30 13:01 | XMS_ITS | Encounter Summary ---
Author Organization [employer] ([place], [place], [place], [place]) Address [address] [place] [address] Care Team Providers Care Core Finisher Name Role Phone Reji Castro MD Primary Care Provider + [phone] Encounter Details Date Type Department Care Team (Late st Contact Info) Description 08/17/2021 Transcribed Document [facility] [place] [facility] [place] [address] ProviderDelvin MD [address] [place] [address] [phone] Social History Tobacco Use Types Packs/Day Years [...] her port could not be accessed. Her print buyer aspirated fluid from the port that was evidently purulent. I have not yet been able to track down that culture. After the aspiration she developed fever to 103, severe CHEUNG, myalgias and arthralgias. She was admitted to [facility]. She was in the [...] contacted and told to report to [facility] because she had + blood cutures concerning for an infected portacath +/- PVE. 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 Integumentary: Warm, [place]. Neurologic: Alert, Oriented, No focal deficits. Psychiatric: [...] filedocumented in this encounter Care Teams Core Finisher Relationship Specialty Start Date End Date Reji Castro MD [address] [place] [id number] PCP - General Adolescent Medicine 10/02/22 documented as of this encounter
--- OUTSIDE RECORDS SUMMARY | 2025-05-30 13:01 | XMS_ITS | Encounter Summary ---
Author Organization [employer] ([place], [place], [place], [place]) Address [address] [place] [address] Care Team Providers Care Information Support Project Manager Name Role Phone Reji Castro MD Primary Care Provider [phone] Encounter Details Date Type Department Care Team (Late st Contact Info) Description 08/17/2021 Transcribed Document [facility] [place] [facility] [place] [address] ProviderDelvin MD [address] [place], [place] [phone] Social History Tobacco Use Types Packs/Day Years [...] filedocumented in this encounter Care Teams Information Support Project Manager Relationship Specialty Start Date End Date Reji Castro MD [address] [place] [address] PCP - General Adolescent Medicine 10/02/22 documented as of this encounter
--- OUTSIDE RECORDS SUMMARY | 2025-05-30 13:01 | XMS_ITS | Encounter Summary ---
Author Organization [facility] Address [address] [place] [address] Care Team Providers Care Speech Therapist Name Role Phone Reji Castro MD Primary Care Provider [phone] Reason for Referral * Consultation (Routine) - Authorized Specialty Diagnoses / Procedures Referred By Contac t Referred To Contact Nephrology Diagnoses Stage 3b chronic kidney disease (CMS/HCC) Reji Castro MD [address] [place] [address] Phone: tel: fax: [facility] Nephrology, Bone & Mineral Metabolism [address] [facility], [address] [place] [address] Phone: tel: fax: Referral ID Status Reason Start Date Expiration Date Visits Requested Visits Authorized [id number] Authorized Specialty Services Required 05/23/2025 11/22/2026 1 1 Encounter Details Date Type Department Care Team ([facility] st Contact Info) Description 05/23/2025 Community [facility] Community Practice [address] [place] [address] Reji Castro MD [address] [place] [address] Stage 3b chronic kidney disease [...] Upcoming Encounters Date Type Department Care Team ([facility] st Contact Info) Description 06/25/2025 1:40 PM EDT Office Visit [facility] Nephrology, Bone & Mineral Metabolism [address] [facility], [address] [place] [address] Scheduled Referrals Name Type Priority Associated Diagnoses [...] documented as of this encounter Care Teams Speech Therapist Relationship Specialty Start Date End Date Reji Castro MD [address] [place] [address] PCP - General Internal Medicine 12/08/23 documented as of this encounter
--- OUTSIDE RECORDS SUMMARY | 2025-05-30 13:01 | XMS_ITS | Encounter Summary ---
Author Organization [facility] Address [address] [place] [address] Care Team Providers Care Surgical Manager Name Role Phone Reji Castro MD Primary Care Provider [phone] Encounter Details Date Type Department Care Team (Late st Contact Info) Description 05/18/2025 Telephone [facility] [address] [place] [address] Alysha Maloney [place] [phone] Social History Tobacco Use Types Packs/Day Years [...] place to sleep or slept in a alf (including now)? No 11/19/2023 Utilities Answer Date [...] documented in this encounter Plan of Treatment Upcoming Encounters Date Type Department Care Team ([facility] st Contact Info) Description 06/25/2025 1:40 PM EDT Office Visit [facility] Nephrology, Bone & Mineral Metabolism [address] [facility], [address] [place] [address] documented as of this encounter Visit Diagnoses Not on filedocumented in this encounter Additional Health Concerns Assessment Noted Time A fall risk assessment has been complete d for the patient 12/08/2023 10:42 AM EST A Body Mass Index follow-up plan has been documented for the patient 01/29/2025 12:26 PM EDT documented as of this encounter Care Teams Surgical Manager Relationship Specialty Start Date End Date Reji Castro MD [address] [place] [id number] PCP - General Internal Medicine 12/08/23 documented as of this encounter
--- OUTSIDE RECORDS SUMMARY | 2025-05-30 13:01 | XMS_ITS | Encounter Summary ---
Author Organization [employer] ([place], [place], [place], [place]) Address [address] [place] [address] Care Team Providers Care Health Spa Manager Name Role Phone Reji Castro MD Primary Care Provider + [phone] Encounter Details Date Type Department Care Team (Late st Contact Info) Description 08/17/2021 Transcribed Document [facility] [place] [facility] [place] [address] ProviderDelvin MD [address] [place] [address] [phone] Social History Tobacco Use Types Packs/Day Years [...] filedocumented in this encounter Care Teams Health Spa Manager Relationship Specialty Start Date End Date Reji Castro MD [address] [place] [address] PCP - General Adolescent Medicine 10/02/22 documented as of this encounter
--- OUTSIDE RECORDS SUMMARY | 2025-05-30 13:01 | XMS_ITS | Encounter Summary ---
Author Organization [employer] ([place], [place], [place], [place]) Address [address] [place] [address] Care Team Providers Care Oxygraph Operator Name Role Phone Reji Castro MD Primary Care Provider + [phone] Encounter Details Date Type Department Care Team (Late st Contact Info) Description 08/13/2021 Transcribed Document [facility] [place] Medicine [address] [place] [address] ProviderDelvin MD [address] [place] [address] 608661 Social History Tobacco Use Types Packs/Day Years [...] On: 08/13/2021 10:20 EDT by Reina Tian, BUS OPERATOR Phone Call for Consults Consult Phone [...] Returned : 08/14/2021 10:39 EDT Reina Tian, BUS OPERATOR - 08/13/2021 10:37 EDT Electronically signed by Lanny, [facility] Conversion Boxing Inspector Cerner at 03/09/2023 8:38 PM CDT documented in this encounter Plan of Treatment Not on file documented as of this encounter Visit Diagnoses Not on filedocumented in this encounter Care Teams Oxygraph Operator Relationship Specialty Start Date End Date Reji Castro MD [address] [place] [address] PCP - General Adolescent Medicine 10/02/22 documented as of this encounter
--- OUTSIDE RECORDS SUMMARY | 2025-05-30 13:01 | XMS_ITS ---
Author Organization [facility] Address [address] [place] [address] Care Team Providers Care Diagnostic Medical Sonographer Name Role Phone Reji Castro MD Primary Care Provider Transplant Episode Heart Candidate [facility] ([place], [place]) - [facility] Referred on 05/17/2025 Marked as Ineligible on 05/18/2025 Reason: Financial/Insurance Complications Heart CoordinatorMargarita Bill RN Fax: N/A Email: N/A Care Team Name Role Phone Fax Email Margarita Bill RN Box Attacher [phone] N/A N/A Purnima Mathur Second Worker [phone] N/A N/A Alysha Disla Strand Galvanizer N/A N/A N/A Neil Caldwell MD Referring Physician [phone] N/A Events Pre-Transplant Referred: 05/17/2025
--- OUTSIDE RECORDS SUMMARY | 2025-05-30 13:01 | XMS_ITS | Encounter Summary ---
Author Organization [facility] Address [address] [place] [address] Care Team Providers Care Hypertrichologist Name Role Phone Reji Castro MD Primary Care Provider [phone] Encounter Details Date Type Department Care Team (Late st Contact Info) Description 05/07/2025 Orders Only External Location [address] [place] [address] Provider, External Social History Tobacco Use Types [...] 06/25/2025 1:40 PM EDT Office Visit [facility] Nephrology, Bone & Mineral Metabolism [address] [facility], [address] [place] [address] documented as of this encounter [...] documented as of this encounter Care Teams Hypertrichologist Relationship Specialty Start Date End Date Reji Castro MD [address] [place] [address] PCP - General Internal Medicine 12/08/23 documented as of this encounter
--- OUTSIDE RECORDS SUMMARY | 2025-05-30 13:01 | XMS_ITS | Encounter Summary ---
Author Organization [facility] Address [address] [place] [address] Care Team Providers Care Business Project Analyst Name Role Phone Reji Castro MD Primary Care Provider [phone] Reason for Referral * Transplant (Routine) - Denied Specialty Diagnoses / Procedures Referred By Contac t Referred To Contact Transplant Diagnoses Cardiomyopathy, unspecified type (CMS/HCC) Neil Caldwell MD [facility] [place] [address] Phone: tel: fax: [facility] [address] [facility] 1st Floor [address] [place] [address] Phone: tel: fax: Referral ID Status Reason Start Date Expiration Date V isits Requested Visits Authorized [id number] Denied Specialty Services Required 05/17/2025 11/16/2026 999 0 Encounter Details Date Type Department Care Team (Late st Contact Info) Description 05/17/2025 Telephone [facility] [address] [place] [address] Alysha Maloney [place] [phone] Social History Tobacco Use Types Packs/Day Years [...] place to sleep or slept in a prison (including now)? No 11/19/2023 Utilities Answer Date [...] 05/17/2025 2:55 PM EDT Referral came from [facility], Dr. Regis Caldwell to the [facility]. Requested [facility] cancel the Cardiology referral since I will add TXP referral. Records saved in Media by [facility]. I will request [facility] from [facility] Notified [facility] of new referral and TXP [place] of patient assignment. Will proceed with scheduling once insurance is verified for MM and TXP coverage. documented in this encounter Plan of Treatment Upcoming Encounters Date Type Department Care Team (Late st Contact Info) Description 06/25/2025 1:40 PM EDT Office Visit [facility] Nephrology, Bone & Mineral Metabolism [address] [facility], [address] [place] [address] Scheduled Referrals Name Type Priority [...] documented as of this encounter Care Teams Business Project Analyst Relationship Specialty Start Date End Date Reji Castro MD [address] [place] [address] PCP - General Internal Medicine 12/08/23 documented as of this encounter
--- OUTSIDE RECORDS SUMMARY | 2025-05-30 13:01 | XMS_ITS | Encounter Summary ---
Author Organization [employer] ([place], [place], [place], [place]) Address [address] [place] [address] Care Team Providers Care Pot Fireman Name Role Phone Reji Castro MD Primary Care Provider + [phone] Encounter Details Date Type Department Care Team (Late st Contact Info) Description 08/17/2021 Transcribed Document [facility] [place] [address] ProviderDelvin MD [address] [place] [phone] Social History Tobacco Use Types Packs/Day Years [...] mg, 14 mL, 128 mL/Hr, IV Piggyback, [id number]. diphenhydrAMINE: 50 mg, IV Push, On-CALL, PRN: [...] questions. Thank you, Andrea Moraes, PharmD PGY1 Steamship Agent Pager: [phone], Ext. [phone] documented in this encounter Plan of Treatment Not on file documented as of this encounter Visit Diagnoses Not on filedocumented in this encounter Care Teams Pot Fireman Relationship Specialty Start Date End Date Reji Castro MD [address] [place] [address] PCP - General Adolescent Medicine 10/02/22 documented as of this encounter
--- OUTSIDE RECORDS SUMMARY | 2025-05-30 13:01 | XMS_ITS | Encounter Summary ---
Author Organization [employer] ([place], [place], [place], [place]) Address [address] [place] [address] Care Team Providers Care Supervisor Tumblers Name Role Phone Reji Castro MD Primary Care Provider + [phone] Encounter Details Date Type Department Care Team (Late st Contact Info) Description 08/17/2021 Transcribed Document [facility] [place] Medicine [address] [place] [address] ProviderDelvin MD [address] [place] [address] [phone] Social History Tobacco Use Types Packs/Day Years [...] filedocumented in this encounter Care Teams Supervisor Tumblers Relationship Specialty Start Date End Date Reji Castro MD [address] [place] [address] PCP - General Adolescent Medicine 10/02/22 documented as of this encounter
--- OUTSIDE RECORDS SUMMARY | 2025-05-30 13:01 | XMS_ITS | Encounter Summary ---
Author Organization [employer] ([place], [place], [place], [place]) Address [address] [place] [address] Care Team Providers Care Grinder Set Up Operator Universal Name Role Phone Reji Castro MD Primary Care Provider + [phone] Encounter Details Date Type Department Care Team (Late st Contact Info) Description 08/17/2021 Transcribed Document [facility] [place] [address] [place] [address] ProviderDelvin MD [address] [place] [address] [phone] Social History Tobacco Use Types Packs/Day Years [...] on filedocumented in this encounter Care Teams Grinder Set Up Operator Universal Relationship Specialty Start Date End Date Reji Castro MD [address] [place] [address] PCP - General Adolescent Medicine 10/02/22 documented as of this encounter
--- OUTSIDE RECORDS SUMMARY | 2025-05-30 13:01 | XMS_ITS | Encounter Summary ---
Author Organization [employer] ([place], [place], [place], [place]) Address [address] [place] [address] Care Team Providers Care Laser/Electro Optics Technician Name Role Phone Reji Castro MD Primary Care Provider + [phone] Encounter Details Date Type Department Care Team (Late st Contact Info) Description 08/13/2021 Transcribed Document [facility] [place] [address] [place] [address] ProviderDelvin MD [address] [place] [phone] Social History Tobacco Use Types Packs/Day Years [...] on filedocumented in this encounter Care Teams Laser/Electro Optics Technician Relationship Specialty Start Date End Date Reji Castro MD [address] [place] [address] PCP - General Adolescent Medicine 10/02/22 documented as of this encounter
--- NOTE | 2025-05-30 13:31 | EXP.ACUTE.PN ---
Subjective *Date: 05/30/25 *Time: 13:31 Interval history: Patient lying in bed, resting with her eyes closed. She states she feels better today, less short of breath, less wheezing. She states she still does not feel well. She still is very edematous. Will continue with diuresis, and strict I's and O's. Medical Exam Vital signs and Labs for Last 24 Hours: Vital Signs Temp Pulse Pulse Resp BP Pulse Ox O2 Del Method 05/30/25 11:38 78 05/30/25 11:38 80 05/30/25 11:00 Nasal Cannula 05/30/25 08:20 Nasal Cannula 05/30/25 08:00 80 05/30/25 08:00 97.9 F 79 16 120/71 98 Nasal Cannula 05/30/25 08:00 97 Nasal Cannula 05/30/25 06:39 Room Air 05/30/25 06:26 76 05/30/25 06:26 77 05/30/25 05:00 Nasal Cannula 05/30/25 04:13 80 05/30/25 04:00 97.5 F L 82 16 120/76 99 Nasal Cannula 05/30/25 03:00 Nasal Cannula 05/30/25 01:00 Nasal Cannula 05/30/25 00:08 81 05/30/25 00:00 97.7 F 81 16 109/71 L 95 Nasal Cannula 05/30/25 00:00 80 05/29/25 23:00 Nasal Cannula 05/29/25 21:00 Nasal Cannula 05/29/25 20:00 96 Nasal Cannula 05/29/25 20:00 80 05/29/25 20:00 97.6 F 90 18 121/71 96 Nasal Cannula 05/29/25 18:52 Nasal Cannula 05/29/25 18:51 80 05/29/25 18:44 Nasal Cannula 05/29/25 16:00 97.5 F L 14 121/85 98 Nasal Cannula 05/29/25 16:00 80 05/29/25 14:06 80 97 Nasal Cannula O2 Flow Rate FiO2 05/30/25 11:38 05/30/25 11:38 05/30/25 11:00 2 05/30/25 08:20 2 05/30/25 08:00 05/30/25 08:00 2 05/30/25 08:00 2 05/30/25 06:39 2 05/30/25 06:26 05/30/25 06:26 05/30/25 05:00 2 05/30/25 04:13 05/30/25 04:00 2 05/30/25 03:00 2 05/30/25 01:00 2 05/30/25 00:08 05/30/25 00:00 2 05/30/25 00:00 05/29/25 23:00 2 05/29/25 21:00 2 05/29/25 20:00 2 05/29/25 20:00 05/29/25 20:00 2 05/29/25 18:52 2 28 05/29/25 18:51 05/29/25 18:44 05/29/25 16:00 2 05/29/25 16:00 05/29/25 14:06 2 Intake and Output 05/29/25 05/30/25 05/30/25 23:59 07:59 15:59 Intake Total 40 / 40 Output Total 500 / 700 650 / 650 0 / 650 Balance -500 / -670 -610 / -610 0 / -610 Intake: Intake, Total IV Amount 40 / 40 Bumetanide 10 mg In 0.9 % 40 / 40 Sodium Chloride 60 ml @ 4 mls/ hr IV .Q24H [facility] Rx#:[id number] Output: Output, Urine Amount 500 / 700 650 / 650 0 / 650 Other: Number of Voids 0 Number of Unmeasured Voids 0 Weight 89.358 kg 88.961 kg Patient Weight 05/30/25 23:59 Weight 88.961 kg Laboratory Results - last 24 hr 05/29/25 14:30: WBC 7.5, RBC 3.57 L, Hgb 9.6 L, Hct 31.0 L, MCV 86.8, MCH 26.9 L, MCHC 31.0 L, RDW 21.3 H, Plt Count 179, MPV 9.6, Neut % (Auto) 85.8 H, Lymph % (Auto) 2.0 L, [place] % (Auto) 9.6 H, Eos % (Auto) 1.7, Baso % (Auto) 0.4, Neut # (Auto) 6.4, Lymph # (Auto) 0.2 L, [place] # (Auto) 0.7, Eos # (Auto) 0.1, Baso # (Auto) 0.0, Total Counted 100, Neutrophils % (Manual) 87 H, Lymphocytes % (Manual) 1 L, Monocytes % (Manual) 11 H, Basophils % (Manual) 1.0, Platelet Estimate Normal, Hypochromasia 2+, PT 30.2 H, INR 2.95 H, Sodium 128 L, Potassium 4.0, Chloride 82 L, Carbon Dioxide 32 H, Anion Gap 18.0 H, BUN 75 H, Creatinine 2.30 H, Estimated GFR 21 L, Est GFR ( Amer) 26 L, Glucose 156 H, Hemoglobin A1c 7.9 H, Calcium 9.3, Phosphorus 3.5, Magnesium 2.4 H, Total Bilirubin 1.0, AST 33, ALT 21, Alkaline Phosphatase 151 H, NT-Pro-B Natriuret Pep 7180 H, Total Protein 7.1, Albumin 4.2, Globulin 2.9, Albumin/Globulin Ratio 1.4 05/29/25 16:49: POC Glucose 172 H 05/29/25 21:13: POC Glucose 211 H 05/30/25 06:35: WBC 7.1, RBC 3.49 L, Hgb 9.3 L, Hct 30.1 L, MCV 86.2, MCH 26.6 L, MCHC 30.9 L, RDW 21.4 H, Plt Count 174, MPV 9.5, Neut % (Auto) 83.3 H, Lymph % (Auto) 2.8 L, [place] % (Auto) 10.9 H, Eos % (Auto) 2.0, Baso % (Auto) 0.7, Neut # (Auto) 5.9, Lymph # (Auto) 0.2 L, [place] # (Auto) 0.8, Eos # (Auto) 0.1, Baso # (Auto) 0.1, Total Counted 100, Neutrophils % (Manual) 88 H, Lymphocytes % (Manual) 4 L, Monocytes % (Manual) 6, Eosinophils % (Manual) 1, Basophils % (Manual) 1.0, Platelet Estimate Normal, Hypochromasia 2+, PT 28.7 H, INR 2.79 H, Sodium 128 L, Potassium 4.2, Chloride 83 L, Carbon Dioxide 32 H, Anion Gap 17.2 H, BUN 78 H, Creatinine 2.10 H, Estimated Creat Clear 39, Estimated GFR 24 L, Est GFR ( Amer) 29 L, Glucose 133 H, Calcium 9.5, Total Bilirubin 1.3, AST 35, ALT 19, Alkaline Phosphatase 123, Total Protein 7.0, Albumin 4.1, Globulin 2.9, Albumin/Globulin Ratio 1.4 I & O for Labs for Last 24 Hours: Intake & Output 05/27/25 05/28/25 05/29/25 05/30/25 23:59 23:59 23:59 23:59 Intake Total 40 / 40 Output Total 500 / 700 650 / 650 Balance -500 / -670 -610 / -610 Weight 89.358 kg 88.961 kg Constitutional: Present mild distress, obese, chronically ill appearing and cooperative Head: Present atraumatic and normocephalic Respiratory: Present CTA bilaterally, normal respiratory effort, able to speak in complete sentences and symmetric chest movement; Absent wheezes or crackles Cardiac: Present Irregularly Regular and Systolic Murmur (mechanical click) GI: Present soft and normal bowel sounds; Absent distention or tenderness Rectal (female): Present deferred (female): Present deferred Extremities: Present normal inspection, full ROM, tenderness and edema (2+ bilateral lower extremities, 3+ left forearm and hand) Skin: Present intact, erythema (Bilateral lower extremities.), dry and warm Neuro: Present Grossly Intact, alert, awake, oriented x 3 and moves all extremities Assessment and Plan *Assessment and plan (1) Acute on chronic HFrEF (heart failure with reduced ejection fraction): Status: Acute Category: Medical Code(s): I50.23 - Acute on chronic systolic (congestive) heart failure (2) Iron deficiency anemia: Status: Acute Category: Medical Code(s): D50.9 - Iron deficiency anemia, unspecified (3) Anticoagulation goal of INR 2.5 to 3.5: Status: Acute Category: Medical Code(s): Z51.81 - Encounter for therapeutic drug level monitoring; Z79.01 - [facility] (current) use of anticoagulants (4) Presence of biventricular AICD: Status: Acute Category: Surgical Code(s): Z95.810 - Presence of automatic (implantable) cardiac defibrillator (5) History of mitral valve replacement with mechanical valve: Status: Acute Category: Surgical Code(s): Z95.2 - Presence of prosthetic heart valve (6) CKD (chronic kidney disease) stage 4, GFR 15-29 ml/min: Status: Acute Category: Medical Code(s): N18.4 - Chronic kidney disease, stage 4 (severe) (7) Pulmonary hypertension: Status: Suspected Category: Medical Code(s): I27.20 - Pulmonary hypertension, unspecified (8) Diabetes mellitus: Status: Acute Qualifiers: Diabetes mellitus complication status: without complication Diabetes mellitus type: type 1 Qualified Code(s): E10.9 - Type 1 diabetes mellitus without complications Category: Medical Code(s): E11.9 - Type 2 diabetes mellitus without complications (9) Atrial fibrillation, chronic: Status: Acute Category: Medical Code(s): I48.20 - Chronic atrial fibrillation, unspecified (10) COPD (chronic obstructive pulmonary disease): Status: Acute Qualifiers: COPD type: unspecified COPD Qualified Code(s): J44.9 - Chronic obstructive pulmonary disease, unspecified Category: Medical Code(s): J44.9 - Chronic obstructive pulmonary disease, unspecified (11) GERD (gastroesophageal reflux disease): Status: Acute Qualifiers: Esophagitis presence: esophagitis presence not specified Qualified Code(s): K21.9 - Gastro-esophageal reflux disease without esophagitis Category: Medical Code(s): K21.9 - Gastro-esophageal reflux disease without esophagitis (12) HTN (hypertension): Status: Acute Qualifiers: Hypertension type: unspecified Qualified Code(s): I10 - Essential (primary) hypertension Category: Medical Code(s): I10 - Essential (primary) hypertension (13) Thrombosis of left upper extremity: Status: Acute Category: Medical Code(s): I82.602 - Acute embolism and thrombosis of unspecified veins of left upper extremity Ginny Costa is a 59-year-old female with a history of autoimmune hemolytic anemia, mechanical mitral valve, HFrEF, chronic anticoagulation, hypertension, chronic A-fib. Presented to cardiology clinic and was found to be in increased respiratory distress with increased swelling in her legs. Concern for HFrEF exacerbation. In addition she was found to have a left upper extremity thrombosis, discussed with cardiology for direct admission for further management of care. I agreed to admit for further care. Initiated on Bumex 2 mg IV once and Bumex drip 1 mg an hour. Necessitating inpatient care. Problems addressed as follows: #Acute on chronic HFrEF #Mechanical mitral valve #Chronic A-fib - proBNP 7180, BNP on 05/07/2025 was 3810. Output of 1.1 L since admission, strict I's and O's. - Started Bumex 2 mg x 1, Bumex infusion 1 mg/hour IV. Patient currently takes 2 mg Bumex twice daily. Start spironolactone 50 mg daily. - Per cardiology at this time they will not intervene with left upper arm thrombus, will continue to monitor urine output and diuresis. - Continue warfarin for goal INR 2.5-3.5. INR 2.79. - Echo obtained 04/05/2025 showed grade 3 diastolic dysfunction with a LVEF of 15 to 20%. - BiV pacemaker placed 07/11/2024. - CardioMEMS in place but no longer transmitting information. - Continue amiodarone 200 mg daily and metoprolol 50 mg daily. - Patient awaiting call from for cardiac MRI with and without contrast, to evaluate for possible heart transplant. - Edema noted bilateral thighs, knees, lower extremities. Edema also noted in left forearm and hand, likely related to known left upper extremity thrombus. #TRISTAN on CKD - Sodium 128, potassium 4.2. BUN 78 with creatinine 2.1. Magnesium 2.4. - Kidney function worse from baseline but slightly improved from yesterday. Baseline creatinine appears to be between 1.7-1.9. Concern for renal congestion. Anticipate improvement with diuresis. Repeat labs ordered for the morning. - Needs nephrology referral as an outpatient, still making urine at this time. Patient states she is not urinating as much as usual, will monitor strict I's and O's. #Chronic autoimmune hemolytic anemia - Labs at time of admission with white count of 7.5, hemoglobin 9.6. Hemoglobin at patient baseline. - Repeat CBC, CMP, INR and PT ordered for the morning #Type 2 diabetes ? Hemoglobin A1c 7.9% ? LDSSI, ACHS glucose checks. Use Dexcom for glucose checks. - Continue home insulin glargine 14 units nightly, holding Jardiance in the setting of worsening kidney function #Thrombus of left upper extremity ?Patient had venous Doppler study 05/24/2025 showing extensive venous thrombus of left upper extremity. She followed up in cardiology today was admitted to the floor for possible intervention-will hold intervention at this time due to HFrEF exacerbation. #COPD ?Patient receiving DuoNebs every 6 hours. Wheezing has greatly improved, patient wearing 2 L nasal cannula for comfort as needed. Chronic pain continue oxycodone 10 mg 4 times a day as needed for severe pain Hypothyroid: Continue levothyroxine 25 mcg daily Depression: Continue Cymbalta 60 mg nightly, continue Xanax 0.5 mg 3 times a day as needed for anxiety Mechanical mitral valve-Continue Coumadin therapy Chronic atrial fibrillation-rate controlled. Continue home amiodarone. Full code DVT prophylaxis: Continue warfarin per home regimen Diabetic diet
--- OUTSIDE RECORDS SUMMARY | 2025-05-30 13:57 | XMS_ITS | CCD ---
Author Organization Unknown Care Team Providers Care Drum Builder Name Role Phone Non Engaged, [facility] Primary Care Provider Unav ailable Unavailable Chronic Care Management Unavaila ble Summary Purpose DataExchange Insurance Providers Payer name Policy type / Coverage type Covered republican ID Effective Begin Date Effective End Date [facility] [id number] Unknown Unknown Family History Family History data not found Medication Administered No Medication Administered data Reason For Visit No Reason For Visit data Medical Equipment No Medical Equipment data Advance Directives No Advance Directive data
--- OUTSIDE RECORDS SUMMARY | 2025-05-30 14:00 | XMS_ITS | CCD ---
Author Organization Unknown Care Team Providers Care Calibration Tester Name Role Phone Non Engaged, [facility] Primary Care Provider Unav ailable Unavailable Chronic Care Management Unavaila ble Summary Purpose DataExchange Insurance Providers Payer name Policy type / Coverage type Covered democrat ID Effective Begin Date Effective End Date [facility] [id number] Unknown Unknown Family History Family History data not found Medication Administered No Medication Administered data Reason For Visit No Reason For Visit data Medical Equipment No Medical Equipment data Advance Directives No Advance Directive data
[2025-05-30] MEDS: BUMETANIDE 10 MG in 0.9 % SODIUM CHLORIDE 60 ML 4 MG IV (16:40)
[2025-05-30] MEDS: PANTOPRAZOLE 40MG TABLET 40 MG PO (21:06)
[2025-05-30] MEDS: POTASSIUM CHLORIDE 20 MEQ PO (21:07)
[2025-05-30] MEDS: PAT OWN MED ***DULOXETINE 60 MG 1 EACH PO (21:08)
[2025-05-30] MEDS: INSULIN GLARGINE 100 UNITS/ML 3ML FLEXPEN 14 UNIT SUBCUT (21:08)
[2025-05-31] VITALS (11 sets, daily range): BP systolic 102–127; BP diastolic 49–78; PULSE 72–98; RESP 16–18; TEMP 36.4–36.7; O2SAT 90–97; BMI 34.0
[2025-05-31] MEDS: IPRATROPIUM/ALBUTEROL 3 ML NEB IH ×4 (00:01→18:28)
--- NOTE | 2025-05-31 04:55 | PC.NURSE ---
Ice water passed, trash and linens emptied, bedside table cleaned.
[2025-05-31] MEDS: OXYCODONE 10MG W/APAP 325MG TABLET 1 EACH PO ×2 (06:11→20:03)
[2025-05-31] MEDS: LEVOTHYROXINE 25 MCG PO (07:04)
[2025-05-31 07:34] LABS: Hematocrit 31.5 % (37.0-47.0); Hemoglobin 9.6 g/dL (12.2-16.2); Immature Granulocytes % 0.6 %; Mean Corpuscular HGB Conc 30.5 g/dL (31.8-35.4); Mean Corpuscular Hemoglobin 26.4 pg (27.0-31.2); Mean Corpuscular Volume 86.8 fl (81-99); Nucleated Red Blood Cells % 0 %; Platelet Count 180 K/mm3 (142-424); Red Blood Count 3.63 M/mm3 (4.20-5.40); Red Cell Distribution Width-SD 67.3 fL; White Blood Count 6.8 K/mm3 (4.8-10.8)
--- NOTE | 2025-05-31 07:44 | PC.NURSE ---
Pt. is alert and orientated x 4. Pt. is on 2 liters of [place] oxygen. Pt. has a right chest port and has a continuous Bumex drip to diuresis excess fluid off. Pt. has LUE swelling and pain to left arm and left neck. Pt. also c/o low back pain. Pt. medicated x 2 for pain. Pt. has dexcom to mange diabetes, dexcom reading stable. Pt. states she is feeling a lot better and she feels stronger . Pt. up to Bathroom with assist x 1. Personal items and call walker in reach.
[2025-05-31 08:04] LABS: Alanine Aminotransferase 19 U/L (12-78); Albumin Level 4.3 g/dl (3.5-5.0); Albumin/Globulin Ratio 1.4 (1.1-1.8); Alkaline Phosphatase 131 U/L (38-126); Anion Gap 18.6 mEq/L (5-15); Aspartate Amino Transferase 37 U/L (14-36); Bilirubin,Total 1.3 mg/dl (0.2-1.3); Blood Urea Nitrogen 77 mg/dl (7-17); Calcium 9.5 mg/dl (8.4-10.2); Carbon Dioxide 31 mmol/L (22.0-30.0); Chloride 82 mmol/L (98-107); Creatinine Clearance Estimated 40 mL/min (50-200); Creatinine,Serum 2.10 mg/dl (0.52-1.04); Estimated Glomerular Filt Rate 24 ml/min (>60); GFR (African American) 29 ML/MIN (>60); Globulin 3.0 g/dL (1.3-3.2); Glucose 135 mg/dl (74-100); Potassium 4.6 mmoL/L (3.5-5.1); Sodium 127 mmol/L (136-145); Total Protein,Serum 7.3 g/dl (6.3-8.2)
[2025-05-31 08:07] LABS: Total Cells Counted 100
[2025-05-31 08:08] LABS: Hypochromasia 2+
[2025-05-31] MEDS: AMIODARONE 200 MG PO (09:05)
[2025-05-31] MEDS: CALCITRIOL 0.25 MCG PO (09:05)
[2025-05-31] MEDS: SPIRONOLACTONE 50 MG 1 EACH PO (09:06)
[2025-05-31] MEDS: PAT OWN MED ***METOPROLOL SUCCINATE XL 25MG 50 MG PO (09:07)
[2025-05-31] MEDS: POTASSIUM CHLORIDE 20 MEQ PO ×2 (09:09→20:20)
[2025-05-31] MEDS: BUMETANIDE 1MG/4ML VIAL 2 MG IV (10:55)
[2025-05-31] MEDS: CHLOROTHIAZIDE SODIUM IV (10:55)
[2025-05-31] MEDS: SODIUM CHLORIDE 0.9% IV (10:55)
[2025-05-31] MEDS: EMPAGLIFLOZIN 10MG TABLET 10 MG PO (10:55)
[2025-05-31] MEDS: WARFARIN 2MG TABLET 2 MG PO (11:00)
--- NOTE | 2025-05-31 11:53 | EXP.CARD.PN ---
Subjective Subjective Date: 05/31/25 Time: 09:30 Interval history: Still only about 1.5 L diuresed since admission. Patient states she still feels weak short of breath and has lower extremity edema. She is still pitting at least knee-high bilaterally. Left upper extremity swelling appears slightly better than yesterday. Exam Data for Last 24 hours Vital signs and Labs for Last 24 Hours: Temp Pulse Resp BP Pulse Ox O2 Del Method O2 Flow Rate 98.0 F 98 H 16 119/77 92 L Nasal Cannula 3 05/31/25 08:00 05/31/25 08:00 05/31/25 08:00 05/31/25 08:00 05/31/25 05:55 05/31/25 11:16 05/31/25 11:16 FiO2 28 05/29/25 18:52 Laboratory Results - last 24 hr 05/31/25 06:29: WBC 6.8, RBC 3.63 L, Hgb 9.6 L, Hct 31.5 L, MCV 86.8, MCH 26.4 L, MCHC 30.5 L, RDW 21.2 H, Plt Count 180, MPV 9.6, Neut % (Auto) 81.9 H, Lymph % (Auto) 2.9 L, [place] % (Auto) 11.2 H, Eos % (Auto) 2.7, Baso % (Auto) 0.7, Neut # (Auto) 5.6, Lymph # (Auto) 0.2 L, [place] # (Auto) 0.8, Eos # (Auto) 0.2, Baso # (Auto) 0.1, Total Counted 100, Neutrophils % (Manual) 88 H, Lymphocytes % (Manual) 3 L, Monocytes % (Manual) 9, Platelet Estimate Normal, Hypochromasia 2+, Sodium 127 L, Potassium 4.6, Chloride 82 L, Carbon Dioxide 31 H, Anion Gap 18.6 H, BUN 77 H, Creatinine 2.10 H, Estimated Creat Clear 40, Estimated GFR 24 L, Est GFR ( Amer) 29 L, Glucose 135 H, Calcium 9.5, Total Bilirubin 1.3, AST 37 H, ALT 19, Alkaline Phosphatase 131 H, Total Protein 7.3, Albumin 4.3, Globulin 3.0, Albumin/Globulin Ratio 1.4 I & O for Last 24 hours: Intake & Output 05/28/25 05/29/25 05/30/25 05/31/25 23:59 23:59 23:59 23:59 Intake Total 100 / 130 918.267 / 1036.267 398 / 398 Output Total 1300 / 1500 1225 / 1250 450 / 450 Balance -1200 / -1370 -306.733 / -213.733 -52 / -52 Weight 197 lb 196 lb 2 oz 199 lb 1 oz Constitutional Constitutional: no acute distress and cooperative *Routine HEENT Exam Eye: Present PERRL *Routine Respiratory Exam Respiratory: Present CTA bilaterally; Absent accessory muscle use, wheezes or crackles *Routine Cardiovascular Exam Cardiovascular: Present RRR, Normal S1 and Normal S2; Absent murmur, gallop or rubs Comments: 2+ bilateral lower extremity edema knee-high, left upper extremity edema *Routine Abdominal Exam Abdominal: Present soft; Absent tenderness *Routine Extremities Exam Extremities: Present pulses intact; Absent cyanosis or edema *Routine Skin Exam Skin: Present intact; Absent erythema or wounds *Routine Neurological Exam Neurological: Present alert and oriented X3 Routine Psychiatric Exam Psychiatric: Present cooperative Progress Note: A&P Assessment and plan (1) Acute on chronic HFrEF (heart failure with reduced ejection fraction): Status: Acute (2) Iron deficiency anemia: Status: Acute (3) Anticoagulation goal of INR 2.5 to 3.5: Status: Acute (4) Presence of biventricular AICD: Status: Acute (5) History of mitral valve replacement with mechanical valve: Status: Acute (6) CKD (chronic kidney disease) stage 4, GFR 15-29 ml/min: Status: Acute (7) Pulmonary hypertension: Status: Suspected (8) Diabetes mellitus: Status: Acute (9) Atrial fibrillation, chronic: Status: Acute (10) COPD (chronic obstructive pulmonary disease): Status: Acute (11) GERD (gastroesophageal reflux disease): Status: Acute (12) HTN (hypertension): Status: Acute (13) Thrombosis of left upper extremity: Status: Acute Assessment and Plan Assessment and Plan for All Diagnoses:: Acute on Chronic HFrEF s/p CONTACT WORKER-D and CardioMEMS - known dx with EF 30-35% awaiting transplant consult at [facility], mechanical MVR, Severe biatrial dilation, moderate to severe TR - 1 week worsening dyspnea on exertion, lower extremity edema, ProBNP 7k, CXR - no effusions or edema noted. - continue home GDMT: Jardiance, Metoprolol, Aldactone. Not on TU/ARB/ARNI secondary to hypotensive intolerance - home dose Bumex 2mg BID changed to Bumex 1mg/hr here - only 1L diuresed since admission so far. 05/31: Still much out in terms of diuresis despite Bumex drip. Add bolus dose of Diuril and Bumex 2 mg Extensive LUE DVT - Venous Duplex 05/24/25 - complete thrombosis of left internal jugular vein, partial thrombosis involving left subclavian vein and axillary vein as well as proximal brachial vein - Case discussed extensively by hematology and interventional cardiology. Presumed secondary to PPM wires. Patient developed clot while already anticoagulated on Coumadin. Risk of intervention assessed as very high at this time. Will try conservative measures with left upper extremity elevation and diuresis. No planned procedural intervention at this time. 05/31: Continue Coumadin. Continue elevation and diuresis. Paroxysmal atrial fibrillation - V-paced rhythm here - Continue amiodarone, metoprolol, and warfarin Mechanical mitral valve replaced - Normal function per office echo - Continue warfarin Autoimmune hemolytic anemia - Status post port placement - Hemoglobin 9 here - Iron repletion and blood transfusion PRN Hgb <9 CKD 3 - Creatinine 2.3, baseline 2.0 - Monitor with daily labs - Cr stable, Na remains low at 127, cont to monitor
--- NOTE | 2025-05-31 12:05 | EXP.ACUTE.PN ---
Subjective *Date: 05/31/25 *Time: 12:05 Interval history: Patient is lying in bed this morning, resting with eyes closed. She states that she did not sleep very well last night. When asked how her breathing feels, she states it feels about the same as yesterday. Output has been moderate. Cardiology consulted. Continuing diuresis. Patient stable on 2 L nasal cannula. Medical Exam Vital signs and Labs for Last 24 Hours: Vital Signs Temp Pulse Pulse Resp BP Pulse Ox O2 Del Method 05/31/25 11:16 Nasal Cannula 05/31/25 11:00 Nasal Cannula 05/31/25 08:00 Nasal Cannula 05/31/25 08:00 98.0 F 98 H 16 119/77 05/31/25 07:48 Nasal Cannula 05/31/25 07:00 Nasal Cannula 05/31/25 05:55 83 05/31/25 05:55 87 05/31/25 05:55 92 L Nasal Cannula 05/31/25 05:00 Nasal Cannula 05/31/25 04:00 90 05/31/25 04:00 97.9 F 97 H 18 105/73 L 90 L Room Air 05/31/25 03:00 Nasal Cannula 05/31/25 01:00 Nasal Cannula 05/31/25 00:01 80 05/31/25 00:01 81 05/31/25 00:00 80 05/31/25 00:00 98.0 F 80 16 102/49 L 91 L Room Air 05/30/25 23:00 Nasal Cannula 05/30/25 21:00 Nasal Cannula 05/30/25 20:00 16 98 Nasal Cannula 05/30/25 20:00 80 05/30/25 20:00 97.6 F 79 16 106/73 L 98 Nasal Cannula 05/30/25 18:52 74 05/30/25 18:52 78 05/30/25 18:52 100 Nasal Cannula 05/30/25 18:30 Room Air 05/30/25 17:00 Nasal Cannula 05/30/25 16:00 97.8 F 79 19 110/65 98 Room Air 05/30/25 16:00 80 05/30/25 15:00 Nasal Cannula 05/30/25 13:00 Nasal Cannula O2 Flow Rate 05/31/25 11:16 3 05/31/25 11:00 2 05/31/25 08:00 2 05/31/25 08:00 05/31/25 07:48 2 05/31/25 07:00 2 05/31/25 05:55 05/31/25 05:55 05/31/25 05:55 1 05/31/25 05:00 2 05/31/25 04:00 05/31/25 04:00 05/31/25 03:00 2 05/31/25 01:00 2 05/31/25 00:01 05/31/25 00:01 05/31/25 00:00 05/31/25 00:00 05/30/25 23:00 2 05/30/25 21:00 2 05/30/25 20:00 2 05/30/25 20:00 05/30/25 20:00 1 05/30/25 18:52 05/30/25 18:52 05/30/25 18:52 2 05/30/25 18:30 05/30/25 17:00 05/30/25 16:00 05/30/25 16:00 05/30/25 15:00 2 05/30/25 13:00 2 Intake and Output 05/30/25 05/31/25 05/31/25 23:59 07:59 15:59 Intake Total 458.267 / 1036.267 118 / 398 280 / 398 Output Total 575 / 1250 150 / 450 300 / 450 Balance -116.733 / -213.733 -32 / -52 -20 / -52 Intake: Intake, Oral Amount 360 / 780 280 / 280 Intake, Total IV Amount 98.267 / 256.267 118 / 118 Bumetanide 10 mg In 0.9 % 118 / 118 Sodium Chloride 60 ml @ 4 mls/ hr IV .Q24H [facility] Rx#:[id number] Output: Output, Urine Amount 575 / 1250 150 / 450 300 / 450 Other: Number of Voids 0 1 Number of Unmeasured Voids 0 0 Weight 90.293 kg Patient Weight 05/31/25 23:59 Weight 90.293 kg Laboratory Results - last 24 hr 05/31/25 06:29: WBC 6.8, RBC 3.63 L, Hgb 9.6 L, Hct 31.5 L, MCV 86.8, MCH 26.4 L, MCHC 30.5 L, RDW 21.2 H, Plt Count 180, MPV 9.6, Neut % (Auto) 81.9 H, Lymph % (Auto) 2.9 L, [place] % (Auto) 11.2 H, Eos % (Auto) 2.7, Baso % (Auto) 0.7, Neut # (Auto) 5.6, Lymph # (Auto) 0.2 L, [place] # (Auto) 0.8, Eos # (Auto) 0.2, Baso # (Auto) 0.1, Total Counted 100, Neutrophils % (Manual) 88 H, Lymphocytes % (Manual) 3 L, Monocytes % (Manual) 9, Platelet Estimate Normal, Hypochromasia 2+, Sodium 127 L, Potassium 4.6, Chloride 82 L, Carbon Dioxide 31 H, Anion Gap 18.6 H, BUN 77 H, Creatinine 2.10 H, Estimated Creat Clear 40, Estimated GFR 24 L, Est GFR ( Amer) 29 L, Glucose 135 H, Calcium 9.5, Total Bilirubin 1.3, AST 37 H, ALT 19, Alkaline Phosphatase 131 H, Total Protein 7.3, Albumin 4.3, Globulin 3.0, Albumin/Globulin Ratio 1.4 I & O for Labs for Last 24 Hours: Intake & Output 05/28/25 05/29/25 05/30/25 05/31/25 23:59 23:59 23:59 23:59 Intake Total 100 / 130 918.267 / 1036.267 398 / 398 Output Total 1300 / 1500 1225 / 1250 450 / 450 Balance -1200 / -1370 -306.733 / -213.733 -52 / -52 Weight 89.358 kg 88.961 kg 90.293 kg Assessment and Plan *Assessment and plan (1) Acute on chronic HFrEF (heart failure with reduced ejection fraction): Status: Acute Category: Medical Code(s): I50.23 - Acute on chronic systolic (congestive) heart failure (2) Iron deficiency anemia: Status: Acute Category: Medical Code(s): D50.9 - Iron deficiency anemia, unspecified (3) Anticoagulation goal of INR 2.5 to 3.5: Status: Acute Category: Medical Code(s): Z51.81 - Encounter for therapeutic drug level monitoring; 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 (4) Presence of biventricular AICD: Status: Acute Category: Surgical Code(s): Z95.810 - Presence of automatic (implantable) cardiac defibrillator (5) History of mitral valve replacement with mechanical valve: Status: Acute Category: Surgical Code(s): Z95.2 - Presence of prosthetic heart valve (6) CKD (chronic kidney disease) stage 4, GFR 15-29 ml/min: Status: Acute Category: Medical Code(s): N18.4 - Chronic kidney disease, stage 4 (severe) (7) Pulmonary hypertension: Status: Suspected Category: Medical Code(s): I27.20 - Pulmonary hypertension, unspecified (8) Diabetes mellitus: Status: Acute Qualifiers: Diabetes mellitus complication status: without complication Diabetes mellitus type: type 1 Qualified Code(s): E10.9 - Type 1 diabetes mellitus without complications Category: Medical Code(s): E11.9 - Type 2 diabetes mellitus without complications (9) Atrial fibrillation, chronic: Status: Acute Category: Medical Code(s): I48.20 - Chronic atrial fibrillation, unspecified (10) COPD (chronic obstructive pulmonary disease): Status: Acute Qualifiers: COPD type: unspecified COPD Qualified Code(s): J44.9 - Chronic obstructive pulmonary disease, unspecified Category: Medical Code(s): J44.9 - Chronic obstructive pulmonary disease, unspecified (11) GERD (gastroesophageal reflux disease): Status: Acute Qualifiers: Esophagitis presence: esophagitis presence not specified Qualified Code(s): K21.9 - Gastro-esophageal reflux disease without esophagitis Category: Medical Code(s): K21.9 - Gastro-esophageal reflux disease without esophagitis (12) HTN (hypertension): Status: Acute Qualifiers: Hypertension type: unspecified Qualified Code(s): I10 - Essential (primary) hypertension Category: Medical Code(s): I10 - Essential (primary) hypertension (13) Thrombosis of left upper extremity: Status: Acute Category: Medical Code(s): I82.602 - Acute embolism and thrombosis of unspecified veins of left upper extremity Ginny Costa is a 59-year-old female with a history of autoimmune hemolytic anemia, mechanical mitral valve, HFrEF, chronic anticoagulation, hypertension, chronic A-fib. Presented to cardiology clinic and was found to be in increased respiratory distress with increased swelling in her legs. Concern for HFrEF exacerbation. In addition she was found to have a left upper extremity thrombosis, discussed with cardiology for direct admission for further management of care. I agreed to admit for further care. Initiated on Bumex 2 mg IV once and Bumex drip 1 mg an hour. Necessitating inpatient care. Problems addressed as follows: #Acute on chronic HFrEF #Mechanical mitral valve #Chronic A-fib - proBNP 7180, BNP on 05/07/2025 was 3810. Output yesterday was 1225. Discussed with cardiology about increase in diuretics. - Per cardiology's recommendation we will give a one-time dose Bumex 2 mg IV and Chlorothiazide 500 mg x 1 IV. In addition to the continuous Bumex IV infusion. Patient is also taking spironolactone 50 mg daily. - Per cardiology at this time they will not intervene with left upper arm thrombus, will continue to monitor urine output and diuresis. - Continue warfarin for goal INR 2.5-3.5. INR 2.79 yesterday. - Echo obtained 04/05/2025 showed grade 3 diastolic dysfunction with a LVEF of 15 to 20%. - BiV pacemaker placed 07/11/2024. - CardioMEMS in place but no longer transmitting information. - Continue amiodarone 200 mg daily and metoprolol 50 mg daily. - Patient awaiting call from for cardiac MRI with and without contrast, to evaluate for possible heart transplant. - Edema noted bilateral thighs, knees, lower extremities. Edema also noted in left forearm and hand, likely related to known left upper extremity thrombus. #TRISTAN on CKD - Sodium 127, potassium 4.6. BUN 77 with creatinine 2.1. Magnesium 2.4. Other labs unremarkable. - Kidney function worse from baseline but slightly improved from yesterday. Baseline creatinine appears to be between 1.7-1.9. Concern for renal congestion. Anticipate improvement with diuresis. Continue to repeat labs in the morning. - Needs nephrology referral as an outpatient, still making urine at this time. Patient states she is not urinating as much as usual, will monitor strict I's and O's. #Chronic autoimmune hemolytic anemia - Labs at time of admission with white count of 7.5, hemoglobin 9.6. Hemoglobin at patient baseline. - Repeat CBC, CMP, INR and PT ordered for the morning #Type 2 diabetes ? Hemoglobin A1c 7.9% ? LDSSI, ACHS glucose checks. Use Dexcom for glucose checks. - Continue home insulin glargine 14 units nightly, restart Jardiance 10 mg daily. #Thrombus of left upper extremity ?Patient had venous Doppler study 05/24/2025 showing extensive venous thrombus of left upper extremity. She followed up in cardiology today was admitted to the floor for possible intervention-will hold intervention at this time due to HFrEF exacerbation. #COPD ?Patient receiving DuoNebs every 6 hours. Wheezing has greatly improved, patient wearing 2 L nasal cannula for comfort as needed. Chronic pain continue oxycodone 10 mg 4 times a day as needed for severe pain Hypothyroid: Continue levothyroxine 25 mcg daily Depression: Continue Cymbalta 60 mg nightly, continue Xanax 0.5 mg 3 times a day as needed for anxiety Mechanical mitral valve-Continue Coumadin therapy Chronic atrial fibrillation-rate controlled. Continue home amiodarone. Full code DVT prophylaxis: Continue warfarin per home regimen Diabetic diet
--- NOTE | 2025-05-31 17:52 | PC.NURSE ---
PT IS RESTING IN BED. ALERT AND ORIENTED X4. EATING AND DRINKING FAIR. AMBULATES TO THE BATHROOM. LUNG SOUNDS DIMINISHED WITH SCATTERED WHEEZES AND FINE CRACKLES (LT BASE). ABDOMEN SOFT/NON TENDER WITH ACTIVE BOWEL SOUNDS. O2 SATURATION HAS MAINTAINED 90-93% ON 2 L NC. WILL CONTINUE TO MONITOR.
[2025-05-31] MEDS: BUMETANIDE 10 MG in 0.9 % SODIUM CHLORIDE 60 ML 4 MG IV (18:57)
[2025-05-31] MEDS: INSULIN GLARGINE 100 UNITS/ML 3ML FLEXPEN 14 UNIT SUBCUT (20:03)
[2025-05-31] MEDS: PANTOPRAZOLE 40MG TABLET 40 MG PO (20:09)
[2025-05-31] MEDS: PAT OWN MED ***METOPROLOL SUCCINATE XL 25MG 25 MG PO (20:12)
[2025-05-31] MEDS: PAT OWN MED ***DULOXETINE 60 MG 1 EACH PO (20:12)
[2025-06-01] VITALS: PULSE 80
[2025-06-01] MEDS: IPRATROPIUM/ALBUTEROL 3 ML NEB IH ×3 (00:20→11:12)
[2025-06-01 04:00] VITALS: BP 111/74; PULSE 70; PULSE 80; RESP 16; TEMP 36.6; O2SAT 93; BMI 34.1
[2025-06-01 05:52] VITALS: PULSE 87; PULSE 92; O2SAT 95
[2025-06-01] MEDS: LEVOTHYROXINE 25 MCG PO (06:24)
[2025-06-01 06:53] LABS: Hematocrit 29.9 % (37.0-47.0); Hemoglobin 8.9 g/dL (12.2-16.2); Immature Granulocytes % 0.5 %; Mean Corpuscular HGB Conc 29.8 g/dL (31.8-35.4); Mean Corpuscular Hemoglobin 26.1 pg (27.0-31.2); Mean Corpuscular Volume 87.7 fl (81-99); Nucleated Red Blood Cells % 0 %; Platelet Count 174 K/mm3 (142-424); Red Blood Count 3.41 M/mm3 (4.20-5.40); Red Cell Distribution Width-SD 67.8 fL; White Blood Count 7.3 K/mm3 (4.8-10.8)
[2025-06-01 07:16] LABS: Alanine Aminotransferase 17 U/L (12-78); Albumin Level 4.4 g/dl (3.5-5.0); Albumin/Globulin Ratio 1.4 (1.1-1.8); Alkaline Phosphatase 130 U/L (38-126); Anion Gap 16.3 mEq/L (5-15); Aspartate Amino Transferase 32 U/L (14-36); Bilirubin,Total 1.4 mg/dl (0.2-1.3); Blood Urea Nitrogen 74 mg/dl (7-17); Calcium 9.8 mg/dl (8.4-10.2); Carbon Dioxide 34 mmol/L (22.0-30.0); Chloride 81 mmol/L (98-107); Creatinine Clearance Estimated 38 mL/min (50-200); Creatinine,Serum 2.20 mg/dl (0.52-1.04); Estimated Glomerular Filt Rate 23 ml/min (>60); GFR (African American) 27 ML/MIN (>60); Globulin 3.2 g/dL (1.3-3.2); Glucose 137 mg/dl (74-100); Potassium 4.3 mmoL/L (3.5-5.1); Sodium 127 mmol/L (136-145); Total Protein,Serum 7.6 g/dl (6.3-8.2)
[2025-06-01 07:18] LABS: Total Cells Counted 100
[2025-06-01 07:19] LABS: Hypochromasia 2+; INR 3.14 (0.9-1.1); Prothrombin Time 32.0 seconds (10.1-12.5)
[2025-06-01 07:24] LABS: NT Pro Brain Natriuretic Pep. 9320 pg/mL (0-125)
[2025-06-01 08:00] VITALS: BP 117/76; PULSE 81; PULSE 90; RESP 20; TEMP 36.4; O2SAT 98
[2025-06-01] MEDS: AMIODARONE 200 MG PO (09:02)
[2025-06-01] MEDS: CALCITRIOL 0.25 MCG PO (09:03)
[2025-06-01] MEDS: EMPAGLIFLOZIN 10MG TABLET 10 MG PO (09:03)
[2025-06-01] MEDS: PAT OWN MED ***METOPROLOL SUCCINATE XL 25MG 25 MG PO (09:04)
[2025-06-01] MEDS: POTASSIUM CHLORIDE 20 MEQ PO (09:05)
[2025-06-01 11:12] VITALS: PULSE 87; PULSE 92; O2SAT 97
[2025-06-01 12:00] VITALS: BP 124/84; PULSE 90; PULSE 95; RESP 18; TEMP 36.7; O2SAT 96
[2025-06-01] MEDS: WARFARIN 2MG TABLET 2 MG PO (12:19)
[2025-06-01] MEDS: BUMETANIDE 1MG/4ML VIAL 2 MG IV (12:19)
[2025-06-01] MEDS: POLYETHYLENE GLYCOL 3350 17 GM PACKET PO (12:20)
[2025-06-01] MEDS: OXYCODONE 10MG W/APAP 325MG TABLET 1 EACH PO (12:53)
--- NOTE | 2025-06-01 13:15 | EXP.CARD.PN ---
Subjective Subjective Date: 06/01/25 Time: 09:30 Interval history: Slight improvement in edema and LUE discomfort. Labs and vitals stable. Exam Data for Last 24 hours Vital signs and Labs for Last 24 Hours: Temp Pulse Resp BP Pulse Ox O2 Del Method O2 Flow Rate 98.1 F 95 H 18 124/84 96 Nasal Cannula 3 06/01/25 12:00 06/01/25 12:00 06/01/25 12:00 06/01/25 12:00 06/01/25 12:00 06/01/25 13:00 06/01/25 13:00 FiO2 28 05/29/25 18:52 Laboratory Results - last 24 hr 06/01/25 06:38: WBC 7.3, RBC 3.41 L, Hgb 8.9 L, Hct 29.9 L, MCV 87.7, MCH 26.1 L, MCHC 29.8 L, RDW 21.2 H, Plt Count 174, MPV 9.5, Neut % (Auto) 83.7 H, Lymph % (Auto) 2.6 L, [place] % (Auto) 9.7 H, Eos % (Auto) 3.0, Baso % (Auto) 0.5, Neut # (Auto) 6.1, Lymph # (Auto) 0.2 L, [place] # (Auto) 0.7, Eos # (Auto) 0.2, Baso # (Auto) 0.0, Total Counted 100, Neutrophils % (Manual) 88 H, Monocytes % (Manual) 9, Eosinophils % (Manual) 3, Platelet Estimate Normal, Hypochromasia 2+, PT 32.0 H, INR 3.14 H, Sodium 127 L, Potassium 4.3, Chloride 81 L, Carbon Dioxide 34 H, Anion Gap 16.3 H, BUN 74 H, Creatinine 2.20 H, Estimated Creat Clear 38, Estimated GFR 23 L, Est GFR ( Amer) 27 L, Glucose 137 H, Calcium 9.8, Total Bilirubin 1.4 H, AST 32, ALT 17, Alkaline Phosphatase 130 H, NT-Pro-B Natriuret Pep 9320 H, Total Protein 7.6, Albumin 4.4, Globulin 3.2, Albumin/Globulin Ratio 1.4 I & O for Last 24 hours: Intake & Output 05/29/25 05/30/25 05/31/25 06/01/25 23:59 23:59 23:59 23:59 Intake Total 100 / 130 918.267 / 8196.686 9166 / 1751 1142 / 1142 Output Total 1300 / 1500 1225 / 1250 2195 / 2195 350 / 350 Balance -1200 / -1370 -306.733 / -213.733 -444 / -444 792 / 792 Weight 197 lb 196 lb 2 oz 199 lb 1 oz 200 lb 1 oz Constitutional Constitutional: no acute distress and cooperative *Routine HEENT Exam Eye: Present PERRL *Routine Respiratory Exam Respiratory: Present CTA bilaterally; Absent accessory muscle use, wheezes or crackles *Routine Cardiovascular Exam Cardiovascular: Present RRR, Normal S1 and Normal S2; Absent murmur, gallop or rubs Comments: 2+ bilateral lower extremity edema knee-high, left upper extremity edema *Routine Abdominal Exam Abdominal: Present soft; Absent tenderness *Routine Extremities Exam Extremities: Present pulses intact; Absent cyanosis or edema *Routine Skin Exam Skin: Present intact; Absent erythema or wounds *Routine Neurological Exam Neurological: Present alert and oriented X3 Routine Psychiatric Exam Psychiatric: Present cooperative Progress Note: A&P Assessment and plan (1) Acute on chronic HFrEF (heart failure with reduced ejection fraction): Status: Acute (2) Iron deficiency anemia: Status: Acute (3) Anticoagulation goal of INR 2.5 to 3.5: Status: Acute (4) Presence of biventricular AICD: Status: Acute (5) History of mitral valve replacement with mechanical valve: Status: Acute (6) CKD (chronic kidney disease) stage 4, GFR 15-29 ml/min: Status: Acute (7) Pulmonary hypertension: Status: Suspected (8) Diabetes mellitus: Status: Acute (9) Atrial fibrillation, chronic: Status: Acute (10) COPD (chronic obstructive pulmonary disease): Status: Acute (11) GERD (gastroesophageal reflux disease): Status: Acute (12) HTN (hypertension): Status: Acute (13) Thrombosis of left upper extremity: Status: Acute Assessment and Plan Assessment and Plan for All Diagnoses:: Acute on Chronic 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, mechanical MVR, Severe biatrial dilation, moderate to severe TR - 1 week worsening dyspnea on exertion, lower extremity edema, ProBNP 7k, CXR - no effusions or edema noted. - continue home GDMT: Jardiance, Metoprolol, Aldactone. Not on TU/ARB/ARNI secondary to hypotensive intolerance - home dose Bumex 2mg BID changed to Bumex 1mg/hr here - only 1L diuresed since admission so far. 05/31: Still much out in terms of diuresis despite Bumex drip. Add bolus dose of Diuril and Bumex 2 mg 06/01: Diuresed about 2L since admission. Will try additional Bumex IV and metolazone today. Extensive LUE DVT - Venous Duplex 05/24/25 - complete thrombosis of left internal jugular vein, partial thrombosis involving left subclavian vein and axillary vein as well as proximal brachial vein - Case discussed extensively by hematology and interventional cardiology. Presumed secondary to PPM wires. Patient developed clot while already anticoagulated on Coumadin. Risk of intervention assessed as very high at this time. Will try conservative measures with left upper extremity elevation and diuresis. No planned procedural intervention at this time. 05/31: Continue Coumadin. Continue elevation and diuresis. 06/01: Slight improvement. Continue elevation, diuresis, coumadin. Paroxysmal atrial fibrillation - V-paced rhythm here - Continue amiodarone, metoprolol, and warfarin Mechanical mitral valve replaced - Normal function per office echo - Continue warfarin Autoimmune hemolytic anemia - Status post port placement - Hemoglobin 9 here - Iron repletion and blood transfusion PRN Hgb <9 CKD 3 - Creatinine 2.3, baseline 2.0 - Monitor with daily labs - Cr stable, Na remains low at 127, cont to monitor 06/01 summary: Slow improvement. Continue current treatment plan. Pt nearing baseline. Please ensure she has an appointment in Cardiology clinic next week for close f/u and management.
--- NOTE | 2025-06-01 14:04 | HMH.PTEV ---
Physical Therapy Evaluation Rehab PT IP Evaluation Start: 05/31/25 10:22 Freq: ONCE Status: Active Protocol: Document 06/01/25 13:57 GABRIELA (Rec: 06/01/25 14:04 GABRIELA [id number]) Subjective/History History History 60-year-old female with a complex medical history that includes symptomatic anemia, heart failure with reduced EF (15 to 20%), biventricular AICD, hypertension, hyperlipidemia, cardiomyopathy, chronic kidney disease, mechanical heart valve on warfarin therapy, diabetes mellitus, atrial fibrillation, GERD, COPD. She was directly admitted from the cardiology clinic today after being seen for her follow-up appointment and having worse shortness of breath, bilateral expiratory wheezing, and weakness. Medicine was consulted for admission and further management of her decompensation. Assessment on the floor shows bilateral edema/redness in bilateral lower extremities, she also has notable edema in her left forearm and hand. She had a vascular ultrasound on 05/24/2025 that showed an extensive venous thrombus of left upper extremity. She is stable on 2 L nasal cannula, which she uses as needed at home. Denies fevers, abdominal pain, chills. Subjective Subjective Pt c/o pain in B LE at baseline, increased with edema. She agrees to B LE edema assessment this date. [facility] How much help from another person do you currently need... Turning from your None back to your side while in a flat bed without using bedrails? Moving from lying on None back to sitting on the side of a flat bed without using bedrails? Moving to and from a None bed to a chair ( including a wheelchair)? Standing up from a None chair using your arms? (e.g., wheelchair, bedside chair) Walking in hospital A little room? Climbing 3-5 steps A little with a railing? Mobility Score 22 Mobility Level [facility] Mobility 7 Walk 25 feet or more Mobility Calculator Rehab PT IP Eval Objective Appearance Patient Behavior Appropriate Patient Orientation Person,Place,Time Difficulty following none instructions Speech Pattern Clear Rehab PT IP prob,goals,plan Problems Date of Evaluation: 06/01/25 Discharge Plan PT Discharge Plan PT orders received for B LE unna boot placement, however pt condition is not appropriate for unna boot placement due to baseline increased SOA, decreased mobility, and significantly low EF. B LE wrapped with sondra bandages for mild compression in the setting of B LE 1+ pitting edema with lipodermatosclerosis and decreased ambulation due to SOA. Nsg staff given strict instructions to remove compression should pt c/o increased SOA. PHYSICIAN CERTIFICATION: I certify the specified therapy services for Irina Costa are required, authorized, and reviewed every 30 days.
--- NOTE | 2025-06-01 14:16 | P.DS_ITS ---
<Statement entered by Sandeep Hopson MD - 06/04/25 16:17> Personally evaluated patient and agree with plan of care as outlined by the ELECTRO MECHANICAL TECHNOLOGIST. General Admission date:: 05/29/25 Discharge date: 06/01/25 HPI HPI HPI: Ms. Costa is a 60-year-old female with a complex medical history that includes symptomatic anemia, heart failure with reduced EF (15 to 20%), biventricular AICD, hypertension, hyperlipidemia, cardiomyopathy, chronic kidney disease, mechanical heart valve on warfarin therapy, diabetes mellitus, atrial fibrillation, GERD, COPD. She was directly admitted from the cardiology clinic today after being seen for her follow-up appointment and having worse shortness of breath, bilateral expiratory wheezing, and weakness. Medicine was consulted for admission and further management of her decompensation. Assessment on the floor shows bilateral edema/redness in bilateral lower extremities, she also has notable edema in her left forearm and hand. She had a vascular ultrasound on 05/24/2025 that showed an extensive venous thrombus of left upper extremity. She is stable on 2 L nasal cannula, which she uses as needed at home. Denies fevers, abdominal pain, chills. Hospital Course Hospital Course Hospital Course: Irina Costa is a 59-year-old female with a history of autoimmune hemolytic anemia, mechanical mitral valve, HFrEF, chronic anticoagulation, hypertension, chronic A-fib. Presented to cardiology clinic and was found to be in increased respiratory distress with increased swelling in her legs. Concern for HFrEF exacerbation. Discussed case with cardiology, request admission for diuresis and further workup including right heart cath. Agreed to admit for further care. Showing response to Bumex drip. -2 L since admission. Problems addressed as follows: #Acute on chronic HFrEF #Mechanical mitral valve #Chronic A-fib - Previous EF of 33% on cardiac MRI. Repeat shows ECHO EF of 15 to 20%. Elevated RVSP. - BiV pacemaker placed 07/11/2024. CardioMEMS in place but no longer transmitting information. ? Clinically improved with IV Bumex diuresis. ? Cardiology evaluated, ultimately patient will need referral to heart transplant due to progressive worsening of heart function in spite of GDMT. Patient awaiting call from for transplant workup. - Continue Bumex 2 mg twice daily, metoprolol succinate 25 mg, Jardiance 10 mg, amiodarone 200 mg daily, spironolactone 50 mg daily. Increase metolazone from as needed to twice daily scheduled. ? Will closely follow-up with cardiology within 1 week. ?PT consulted during admission, wrapped bilateral lower legs in Shayne wrap's. Discussed with patient elevation of lower extremities continue use of Shayne. #Chronic autoimmune hemolytic anemia #Angiodysplasia GI bleed - Patient hemoglobin remained stable during admission. Hemoglobin on admission 9.6, today at discharge 8.9. #TRISTAN on CKD - Creatinine has been at patient baseline 2.2. Patient does have a follow-up with outpatient nephrology on June 25. #Type 2 diabetes ? Hemoglobin A1c 7.9% at last admission. - Continue home insulin glargine 14 units nightly. ?Continue home Soliqua 100/33, 60 units daily. Chronic pain Gout: Continue oxycodone 10 mg 4 times a day as needed for severe pain. Hypothyroid: Continue levothyroxine 25 mcg daily Depression: Continue Cymbalta 60 mg nightly, continue Xanax 0.5 mg 3 times a day as needed for anxiety Mechanical mitral valve-Continue Coumadin therapy, patient INR 3.14 at discharge. Which is therapeutic. Chronic atrial fibrillation-rate controlled. Continue home amiodarone. Total time spent on discharge 35 minutes in counseling, documentation, chart review, and direct care with patient. Exam Data for Last 24 hours Vital signs and Labs for Last 24 Hours: Temp Pulse Resp BP Pulse Ox O2 Del Method O2 Flow Rate 98.1 F 95 H 18 124/84 96 Nasal Cannula 3 06/01/25 12:00 06/01/25 12:06/01/25 12:06/01/25 12:06/01/25 12:06/01/25 13:00 06/01/25 13:00 FiO2 28 05/29/25 18:52 Laboratory Results - last 24 hr 06/01/25 06:38: WBC 7.3, RBC 3.41 L, Hgb 8.9 L, Hct 29.9 L, MCV 87.7, MCH 26.1 L , MCHC 29.8 L, RDW 21.2 H, Plt Count 174, MPV 9.5, Neut % (Auto) 83.7 H, Lymph % (Auto) 2.6 L, Hooker % (Auto) 9.7 H, Eos % (Auto) 3.0, Baso % (Auto) 0.5, Neut # (Auto) 6.1, Lymph # (Auto) 0.2 L, Hooker # (Auto) 0.7, Eos # (Auto) 0.2, Baso # (Auto) 0.0, Total Counted 100, Neutrophils % (Manual) 88 H, Monocytes % (Manual) 9, Eosinophils % (Manual) 3, Platelet Estimate Normal, Hypochromasia 2+, PT 32.0 H, INR 3.14 H, Sodium 127 L, Potassium 4.3, Chloride 81 L, Carbon Dioxide 34 H, Anion Gap 16.3 H, BUN 74 H, Creatinine 2.20 H, Estimated Creat Clear 38, Estimated GFR 23 L, Est GFR ( Amer) 27 L, Glucose 137 H, Calcium 9.8, Total Bilirubin 1.4 H, AST 32, ALT 17, Alkaline Phosphatase 130 H, NT-Pro-B Natriuret Pep 9320 H, Total Protein 7.6, Albumin 4.4, Globulin 3.2, Albumin/Globulin Ratio 1.4 I & O for Last 24 hours: Intake & Output 05/29/25 05/30/25 05/31/25 06/01/25 23:59 23:59 23:59 23:59 Intake Total 100 / 130 918.267 / 2565.262 0710 / 1751 1142 / 1142 Output Total 1300 / 1500 1225 / 1250 2195 / 2195 350 / 350 Balance -1200 / -1370 -306.733 / -213.733 -444 / -444 792 / 792 Weight 89.358 kg 88.961 kg 90.293 kg 90.747 kg Constitutional Constitutional: mild distress, chronically ill appearing and cooperative *Routine HEENT Exam Head: Present normocephalic Eye: Present PERRL ENT: Present mucous membranes moist *Routine Neck Exam Neck: Present supple and JVD (Right sided) *Routine Respiratory Exam Respiratory: Present CTA bilaterally and symmetric chest movement; Absent accessory muscle use, wheezes or crackles *Routine Cardiovascular Exam Cardiovascular: Present RRR, Normal S1 and Normal S2; Absent murmur, gallop or rubs Comments: 2+ bilateral lower extremity edema knee-high, left upper extremity edema, mechanical click *Routine Abdominal Exam Abdominal: Present soft and normoactive bowel sounds; Absent tenderness *Routine Rectal Exam Patient deferred: visual exam *Routine Exam Patient deferred: external exam *Routine Extremities Exam Extremities: Present edema and pulses intact; Absent cyanosis Comments: Left upper extremity edema, bilateral lower extremities edema *Routine Skin Exam Skin: Present intact, dry and pallor; Absent erythema or wounds *Routine Neurological Exam Neurological: Present alert, oriented X3 and normal speech Routine Psychiatric Exam Psychiatric: Present cooperative Results Data Completed and Pending Labs on day of discharge: Labs from last 24 hours 06/01/25 06:38 WBC 7.3 RBC 3.41 L Hgb 8.9 L Hct 29.9 L MCV 87.7 MCH 26.1 L MCHC 29.8 L RDW 21.2 H Plt Count 174 MPV 9.5 Neut % (Auto) 83.7 H Lymph % (Auto) 2.6 L Hooker % (Auto) 9.7 H Eos % (Auto) 3.0 Baso % (Auto) 0.5 Neut # (Auto) 6.1 Lymph # (Auto) 0.2 L Hooker # (Auto) 0.7 Eos # (Auto) 0.2 Baso # (Auto) 0.0 Total Counted 100 Neutrophils % (Manual) 88 H Monocytes % (Manual) 9 Eosinophils % (Manual) 3 Platelet Estimate Normal Hypochromasia 2+ PT 32.0 H INR 3.14 H Sodium 127 L Potassium 4.3 Chloride 81 L Carbon Dioxide 34 H Anion Gap 16.3 H BUN 74 H Creatinine 2.20 H Estimated Creat Clear 38 Estimated GFR 23 L Est GFR ( Amer) 27 L Glucose 137 H Calcium 9.8 Total Bilirubin 1.4 H AST 32 ALT 17 Alkaline Phosphatase 130 H NT-Pro-B Natriuret Pep 9320 H Total Protein 7.6 Albumin 4.4 Globulin 3.2 Albumin/Globulin Ratio 1.4 DS: Diagnosis Discharge Diagnosis (1) Acute on chronic HFrEF (heart failure with reduced ejection fraction): Status: Acute Code(s): I50.23 - Acute on chronic systolic (congestive) heart failure (2) Iron deficiency anemia: Status: Acute Code(s): D50.9 - Iron deficiency anemia, unspecified (3) Anticoagulation goal of INR 2.5 to 3.5: Status: Acute Code(s): Z51.81 - Encounter for therapeutic drug level monitoring; Z79.01 - custodial (current) use of anticoagulants (4) Presence of biventricular AICD: Status: Acute Code(s): Z95.810 - Presence of automatic (implantable) cardiac defibrillator (5) History of mitral valve replacement with mechanical valve: Status: Acute Code(s): Z95.2 - Presence of prosthetic heart valve (6) CKD (chronic kidney disease) stage 4, GFR 15-29 ml/min: Status: Acute Code(s): N18.4 - Chronic kidney disease, stage 4 (severe) (7) Pulmonary hypertension: Status: Suspected Code(s): I27.20 - Pulmonary hypertension, unspecified (8) Diabetes mellitus: Status: Acute Code(s): E11.9 - Type 2 diabetes mellitus without complications Qualifiers: Diabetes mellitus complication status: without complication Diabetes mellitus type: type 1 Qualified Code(s): E10.9 - Type 1 diabetes mellitus without complications (9) Atrial fibrillation, chronic: Status: Acute Code(s): I48.20 - Chronic atrial fibrillation, unspecified (10) COPD (chronic obstructive pulmonary disease): Status: Acute Code(s): J44.9 - Chronic obstructive pulmonary disease, unspecified Qualifiers: COPD type: unspecified COPD Qualified Code(s): J44.9 - Chronic obstructive pulmonary disease, unspecified (11) GERD (gastroesophageal reflux disease): Status: Acute Code(s): K21.9 - Gastro-esophageal reflux disease without esophagitis Qualifiers: Esophagitis presence: esophagitis presence not specified Qualified Code(s): K21.9 - Gastro-esophageal reflux disease without esophagitis (12) HTN (hypertension): Status: Acute Code(s): I10 - Essential (primary) hypertension Qualifiers: Hypertension type: unspecified Qualified Code(s): I10 - Essential (primary) hypertension (13) Thrombosis of left upper extremity: Status: Acute Code(s): I82.602 - Acute embolism and thrombosis of unspecified veins of left upper extremity Meds Home Medications and Allergies Home Medications ?Medication ?Instructions ?Recorded ?Confirmed ?Type oxycodone-acetaminophen 10 mg-325 1 tab PO QID PRN Ebony n, Moderate 05/23/18 05/29/25 History mg tablet (Percocet) alprazolam 0.5 mg tablet (Xanax) 0.5 mg PO TID PRN Anx iety 11/29/19 05/29/25 History levothyroxine 25 mcg tablet 25 mcg PO DAILY 06/05/21 0 05/29/25 History insulin glargine 100 60 units SQ DAILY 02/22/22 0 05/29/25 History unit-lixisenatide 33 mcg/mL subcutaneous pen (Soliqua 100/33) febuxostat 40 mg tablet 40 mg PO DAILY 02/09/2307/16 History potassium chloride 20 mEq 20 meq PO BID 04/15/2305/29 History tablet,extended release(part/cryst) calcitriol 0.25 mcg capsule 0.25 mcg PO DAILY 10/30/23 05/29/25 History duloxetine 60 mg capsule,delayed 60 mg PO HS 03/06/24 05/29/25 History release empagliflozin 10 mg tablet 10 mg PO DAILY #30 tabs 05/29/25 Rx (Jardiance) warfarin 4 mg tablet 2 mg (1/2 x 4 mg) PO DAILY 3 0 days 01/05/25 05/29/25 Rx #0 tabs insulin glargine 100 unit/mL (3 14 unit SQ HS 01/17/25 05/29/25 History mL) subcutaneous pen (Lantus Solostar U-100 Insulin) amiodarone 200 mg tablet 200 mg PO DAILY #90 tabs 11/1505/29/25 Rx blood-glucose sensor (Dexcom G6 #1 ea 04/05/25 5 History Sensor device) blood-glucose transmitter (Dexcom #1 ea 04/05/2505/29 History G6 Transmitter device) blood-glucose,transport operations inspector,cont #1 ea 04/05/25 05/29/25 Hi story (Dexcom G6 Coal Equipment Operator) dexlansoprazole 60 mg 60 mg PO DAILY 04/05/2507/16 History capsule,biphase delayed release pen needle, diabetic 32 gauge x #1,200 ea 04/05/2507/16 History metoprolol succinate 25 mg 50 mg (2 x 25 mg) PO DAILY 30 days 04/12/25 05/29/25 Rx tablet,extended release 24 hr #60 tabs bumetanide 2 mg tablet 2 mg PO BID 05/29/25 5 History spironolactone 50 mg tablet 50 mg PO BID 05/30/25 07/0 08/16 History metolazone 2.5 mg tablet 2.5 mg PO BID 30 days #60 ta bs 06/01/25 Rx New Prescriptions to Start Prescriptions: Cady Marie Allergies Allergy/AdvReac Type Severity Reaction Status Date / Time codeine (CODEINE) Allergy Unknown nausea, Verified 05/29/25 13:11 swelling Corticosteroids Allergy Unknown Unknown Verified 05/29/25 13:11 (Glucocorticoids) allergy (CORTICOSTEROIDS reaction (GLUCOCORTICOIDS)) NSAIDS (Non-Steroidal Allergy Unknown Other Verified 05/29/25 13:11 Anti-Inflamma rosuvastatin (From CRESTOR) Allergy Unknown Unknown Verified 05/29/25 13:11 allergy reaction theophylline (From DAVID-DUR) Allergy Unknown Unknown Verified 05/29/25 13:11 allergy reaction allopurinol Allergy Hives Verified 05/29/25 13:11 Iodinated Contrast Media AdvReac Severe shuts Verified 05/29/25 13:11 (IODINATED CONTRAST- ORAL kidneys AND IV DYE) down and bleeding buprenorphine (From BUPRENEX) AdvReac Intermediate Nausea Verified 05/29/25 13:11 levofloxacin (From Levaquin) AdvReac Other Verified 05/29/25 13:11 lisinopril AdvReac Cough Verified 05/29/25 13:11 prednisone AdvReac Unknown Verified 05/29/25 13:11 allergy reaction sacubitril (From Entresto) AdvReac Hypotension Verified 05/29/25 13:11 valsartan (From Entresto) AdvReac Hypotension Verified 05/29/25 13:11 Discharge Plan Disposition Patient Disposition: Home, Self-Care Condition: Fair Discharge Order Discharge Orders: Discharge Order (Routine); Ordered 06/01/25 Ordered By: Cady Serrano Follow up Plan Follow up with: Reji Castro MD [Primary Care Provider, Internal Medicine] - 06/07/25 12:30 pm Neil Caldwell MD [Staff Physician, Cardiology] - 06/18/25 1:30 pm Prescriptions/Medication Reconciliation: New metolazone 2.5 mg Tablet 2.5 mg PO BID 30 Days Qty: 60 0RF Continued oxycodone-acetaminophen [Percocet] 10-325 mg tablet 1 tab PO QID PRN (Reason: Pain, Moderate) alprazolam [Xanax] 0.5 mg tablet 0.5 mg PO TID PRN (Reason: Anxiety) potassium chloride 20 mEq tablet,ER particles/crystals 20 meq PO BID duloxetine 60 mg capsule,delayed release(DR/EC) 60 mg PO HS (DME) Dexcom G6 Transmitter Device See Rx Instructions .ROUTE .MEDSUPPLY Qty: 1 Patient Comments: USE DIRECTED. Rx Instructions: As directed (DME) pen needle, diabetic 32 gauge x 5/32 needle See Rx Instructions .ROUTE .MEDSUPPLY Qty: 1200 Patient Comments: USE TWICE DAILY Rx Instructions: As directed dexlansoprazole 60 mg capsule,biphase delayed releas 60 mg PO DAILY (DME) Dexcom G6 Sensor Device See Rx Instructions .ROUTE .MEDSUPPLY Qty: 1 Patient Comments: CHANGE EVERY 10 DAYS DIRECTED. Rx Instructions: As directed (DME) Dexcom G6 Coal Equipment Operator Misc See Rx Instructions .ROUTE .MEDSUPPLY Qty: 1 Patient Comments: USE DIRECTED. Rx Instructions: As directed amiodarone 200 mg tablet 200 mg PO DAILY Qty: 90 3RF levothyroxine 25 MCG tablet 25 mcg PO DAILY calcitriol 0.25 mcg Capsule 0.25 mcg PO DAILY Soliqua 100/33 3 ML insulin pen 60 units SQ DAILY febuxostat 40 mg tablet 40 mg PO DAILY insulin glargine [Lantus Solostar U-100 Insulin] 100 unit/mL (3 mL) insulin pen 14 unit SQ HS Jardiance 10 mg tablet 10 mg PO DAILY Qty: 30 1RF warfarin 4 mg tablet 2 mg PO DAILY 30 Days Qty: 0 0RF metoprolol succinate 25 mg tablet extended release 24 hr 50 mg PO DAILY 30 Days Qty: 60 0RF bumetanide 2 mg tablet 2 mg PO BID spironolactone 50 mg tablet 50 mg PO BID Discontinued metolazone 2.5 mg tablet 2.5 mg PO DAILY PRN (Reason: edema) Problem Reconciliation Problems Reviewed?: Yes Patient Discharge Instructions ACTIVITY: Ambulate as tolerated DIET: continue same diet and cardiac Patient Instructions: DI for Deep Vein Thrombosis, Coumadin Vitamin K/ Diet, Stop Light COPD, Stop Light Heart Failure Print Language: Gambian Providers Primary Care Provider: Reji Castroit Provider: Sandeep Hopson Attending Provider: Sandeep Hopson
[2025-06-01 14:47] VITALS: BMI 34.1
--- NOTE | 2025-06-04 10:06 | SW/DCPLANNER ---
Spoke with patient on the phone. Patient stated that she is about the same. Patient stated that she is aware of her upcoming appointments. Patient stated that she was able to get her new mediicne picked up from clinic pharmacy. Patient stated that she has no concerns or questions at this time. Yasmin Gilliland
== END 2025-06-01 16:04 | disposition home or self-care (01) | DRG 291 ==
PROVIDERS: Admitting Provider Student in an Organized Health Care Education/Training Program; PCP Internal Medicine Adolescent Medicine; Visit Provider Student in an Organized Health Care Education/Training Program
DX: I13.0 Hypertensive heart and chronic kidney disease with heart failure and stage 1 through stage 4 chronic kidney disease, or unspecified chronic kidney disease (principal); I50.23 Acute on chronic systolic (congestive) heart failure; K31.811 Angiodysplasia of stomach and duodenum with bleeding; I48.20 Chronic atrial fibrillation, unspecified; D59.19 Other autoimmune hemolytic anemia; N17.9 Acute kidney failure, unspecified; N18.4 Chronic kidney disease, stage 4 (severe); I82.622 Acute embolism and thrombosis of deep veins of left upper extremity; E11.22 Type 2 diabetes mellitus with diabetic chronic kidney disease; G89.29 Other chronic pain; M10.9 Gout, unspecified; E03.9 Hypothyroidism, unspecified; F32.A Depression, unspecified; D50.9 Iron deficiency anemia, unspecified; E78.5 Hyperlipidemia, unspecified; I27.20 Pulmonary hypertension, unspecified; J44.9 Chronic obstructive pulmonary disease, unspecified; I42.9 Cardiomyopathy, unspecified; Z95.810 Presence of automatic (implantable) cardiac defibrillator; Z95.4 Presence of other heart-valve replacement; Z87.891 Personal history of nicotine dependence; Z79.84 Long term (current) use of oral hypoglycemic drugs; Z79.01 Long term (current) use of anticoagulants; Z79.4 Long term (current) use of insulin; Z79.890 Hormone replacement therapy; Z79.899 Other long term (current) drug therapy; Z88.5 Allergy status to narcotic agent; Z88.8 Allergy status to other drugs, medicaments and biological substances; Z88.6 Allergy status to analgesic agent; Z88.1 Allergy status to other antibiotic agents; Z91.041 Radiographic dye allergy status
CPT/HCPCS: 36415; 71045; 80053; 82962; 83036; 83735; 83880; 84100; 85007; 85025; 85610; 94640; 94760; 94761; 97163; J1205; J1642; J1939

== ENCOUNTER 2025-06-13 12:42 | Inpatient (IN) | payer MEDICARE, SELFPAY ==
[2025-06-13] VITALS (43 sets, daily range): BP systolic 77–175; BP diastolic 36–114; PULSE 52–164; RESP 13–39; TEMP 34.9–37.1; O2SAT 89–100; BMI 37.4; BMI 34.4
--- NOTE | 2025-06-13 12:42 | ECG_ITS ---
APPROVED REPORT Exam: Resting ECG HR:136 bpm ECG Measurements Heart Rate 136 AXES QRSd 104 QRS 164 QT 276 T -60 QTc 356 Conclusion WIDE COMPLEX TACHYCARDIA Electronically signed by : Misha Quarles, 06/13/2025 17:01:07
--- NOTE | 2025-06-13 12:43 | XR_ITS ---
FINAL REPORT CLINICAL HISTORY: wide complex tachy COMPARISON: 05/29/2025 FINDINGS: A single frontal view of the chest was obtained. No acute pulmonary opacity is present. No pulmonary edema. There is no evidence of effusion or pneumothorax. ET tube is present within the right mainstem bronchus. Withdrawal by 2.5 cm recommended. NG tube is seen entering within the stomach. Other support devices are stable. The patient is status post CABG. Severe cardiac enlargement is noted. IMPRESSION: Malpositioned ET tube. Withdrawal by 2.5 cm recommended. Reviewed, Interpreted and Dictated by Abiel Land MD Transcribed by Purvi Wang Authenticated and [facility]
--- NOTE | 2025-06-13 12:52 | ECG_ITS ---
APPROVED REPORT Exam: Resting ECG HR:80 bpm ECG Measurements Heart Rate 80 AXES MS 95 P 117 QRSd 157 QRS -86 QT 569 T 89 QTc 605 Conclusion PACED RHYTHM WIDE COMPLEX PROLONGED QT Electronically signed by : Misha Quarles, 06/13/2025 17:00:38
--- NOTE | 2025-06-13 12:56 | PC.NURSE ---
Estate Manager called by House superviser Avtar
--- OUTSIDE RECORDS SUMMARY | 2025-06-13 12:59 | XMS_ITS | Encounter Summary ---
Author Organization [employer] ([place], [place], [place], [place]) Address [address] [place] [address] Care Team Providers Care Contracts Analyst Name Role Phone Reji Castro MD Primary Care Provider + [phone] Encounter Details Date Type Department Care Team (Late st Contact Info) Description 08/11/2021 Transcribed Document [facility] [place] [facility] [place] [facility] [place] [address] ProviderDelvin MD [address] [place] [address] [id number] Social History Tobacco Use Types Packs/Day Years [...] Unaccompanied Legal Guardian : No Support Person/Patient Press Box Custodian : Yes Support Person/Pt Rep Name : [...] 180 units of blood due to anemia, [facility]. Information Obtained From : Patient Primary Language : [place] Communication Barrier : None Paper Grader Needed : No Cherri Webb RN - [...] Scale Risk Level : 0-24 Low Risk [place] Fall Interventions : Adequate lighting, Assistive devices [...] Source : Stated Height Entry Format : [place] Height, Feet : 5 ft(Converted to: 152 cm, 60 Inch) Height, Inches : 4 Inch(Converted to: 0 ft 4 Inch, 10.16 cm) Clinical Height : 162.56 cm Weight Source : Standing scale Weight Entry Format : [place] Clinical Dosing Weight : 86.39 kg Weight, Pounds : 190 lb Weight, Ounces : 1 oz Body Surface Area (BSA) : 1.92 m2 Body Mass Index : 32.7 kg/m2 (HI) [place] Body Weight : 54 kg Cherri Webb [...] Cherri Webb RN - 08/11/2021 23:11 EDT [place] Suicide Severity Rating Scale (C-SSRS) CSSRS Past [...] Items : Cell phone, Other: Cell Phone Manager Financial Personal Items Disposition : Bedside Cherri Webb RN - 08/11/2021 23:11 EDT documented in this encounter Plan of Treatment Not on file documented as of this encounter Visit Diagnoses Not on filedocumented in this encounter Care Teams Contracts Analyst Relationship Specialty Start Date End Date Reji Castro MD [address] [place] [address] PCP - General Adolescent Medicine 10/02/22 documented as of this encounter
--- OUTSIDE RECORDS SUMMARY | 2025-06-13 12:59 | XMS_ITS | Encounter Summary ---
Author Organization [email or web address] ([place], [place], [place], [place]) Address [address] [place] [address] Care Team Providers Care Wire Charger Name Role Phone Reji Castro MD Primary Care Provider + [phone] Encounter Details Date Type Department Care Team (Late st Contact Info) Description 08/11/2021 Transcribed Document [facility] [place] [address] [place] [address] ProviderDelvin MD [address] [place] [address] [id number] Social History Tobacco Use Types Packs/Day Years [...] past, CAD, mitral valve replacement presents to [facility] emergency department in [place] after being told by outside provider that [...] fibrillation 5. Diabetes mellitus type II 6. emt intermediate current use of anticoagulant At risk [...] # 0.76 K/uL (Low) 08/11/2021 17:59 EDT [place] % 8.9 % 08/11/2021 17:59 EDT [place] # 0.61 K/uL 08/11/2021 17:59 EDT Eos [...] Appearance CLEAR2 08/11/2021 17:59 EDT Urine Specific [place] 1.007 08/11/2021 17:59 EDT Urine pH Dipstick [...] Full Code, Continuous Order Electronically signed by [facility], [facility] Conversion Remote Ruby On Rails Developer Cerner at 03/09/2023 8:40 PM CDT documented in this encounter Plan of Treatment Not on file documented as of this encounter Visit Diagnoses Not on filedocumented in this encounter Care Teams Wire Charger Relationship Specialty Start Date End Date Reji Castro MD [address] [place] [id number] PCP - General Adolescent Medicine 10/02/22 documented as of this encounter
--- OUTSIDE RECORDS SUMMARY | 2025-06-13 12:59 | XMS_ITS | Encounter Summary ---
Author Organization Info ([place], [place], [place], [place]) Address [address] [place] [address] Care Team Providers Care Manager Post Name Role Phone Reji Castro MD Primary Care Provider + [phone] Encounter Details Date Type Department Care Team (Late st Contact Info) Description 08/20/2021 Transcribed Document [facility] [place] [facility] [address] ProviderDelvin MD [address] [place] [address] [id number] Social History Tobacco Use Types Packs/Day Years Used Date Smoking Tobacco: Never Assessed Comments Unknown Sex and Gender Information Value Date Recorded Sex Assigned at Not on file Legal Sex Female 4:32 PM CDT Gender Identity Not on file Sexual Orientation Not on file documented as of this encounter Miscellaneous Notes * Cerner Conversion Note - Historical ProviderMD - 08/20/2021 2:00 AM CDT Mirror Machine Feeder Details Entered On: 08/20/2021 3:08 EDT Performed [...] filedocumented in this encounter Care Teams Manager Post Relationship Specialty Start Date End Date Reji Castro MD [address] [place] [id number] PCP - General Adolescent Medicine 10/02/22 documented as of this encounter
--- OUTSIDE RECORDS SUMMARY | 2025-06-13 12:59 | XMS_ITS | Encounter Summary ---
Author Organization [employer] ([place], [place], [place], [place]) Address [address] [place] [address] Care Team Providers Care Miner Name Role Phone Reji Castro MD Primary Care Provider + [phone] Encounter Details Date Type Department Care Team (Late st Contact Info) Description 08/15/2021 Transcribed Document [facility] [place] [facility] [place] [address] ProviderDelvin MD [address] [place] [address] [phone] Social History Tobacco Use Types Packs/Day Years [...] her port could not be accessed. Her conduit installer aspirated fluid from the port that was evidently purulent. I have not yet been able to track down that culture. After the aspiration she developed fever to 103, severe CHEUNG, myalgias and arthralgias. She was admitted to [facility]. She was in the hospital [...] antibiotics. On 08/08 she presented to a [facility] after she developed severe CHEUNG and myalgias w/o prominent fever. She was subsequently contacted and told to report to [facility] because she had + blood cutures concerning for an infected portacath +/- PVE. 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 Review of Systems ROS reviewed as documented in chart Health Status Current medications: (Selected) Inpatient Medications Ordered ALPRAZolam: 0.5 mg, Oral, TID, PRN: Anxiety CeleXA: 40 mg, Oral, Daily Coumadin: 6 mg, Oral, Daily Coumadin: 7.5 mg, Oral, Daily DAPTOmycin + Sodium Chloride 0.9% intravenous solution 50 mL: 700 mg, 14 mL, 128 mL/Hr, IV Piggyback, [id number] Dextrose 50% injection: 12.5 Gram, IV Push, Q15Min, PRN: Other (See Comment) Dextrose 50% injection: 25 Gram, IV Push, Q15Min, PRN: Other (See Comment) Dextrose 50% injection: 25 Gram, IV Push, Q15Min, PRN: Other (See Comment) Dextrose 50% injection: 25 Gram, IV Push, Q15Min, PRN: Other (See Comment) Lactated Ringers Injection intravenous solution 1,000 mL: 20 mL/Hr, IntraVENous [place] 10 mg-325 mg oral tablet: 1 Tab, [...] tenderness, No swelling, No deformity. Integumentary: Warm, [place]. Neurologic: Alert, Oriented, No focal deficits. Psychiatric: [...] of paula cath Electronically signed by Lanny [facility] Conversion Communications Representative Cerner at 03/09/2023 8:49 PM CDT documented in this encounter Plan of Treatment Not on file documented as of this encounter Visit Diagnoses Not on filedocumented in this encounter Care Teams Miner Relationship Specialty Start Date End Date Reji Castro MD [address] [place] [id number] PCP - General Adolescent Medicine 10/02/22 documented as of this encounter
--- OUTSIDE RECORDS SUMMARY | 2025-06-13 12:59 | XMS_ITS | Encounter Summary ---
Author Organization [employer] ([place], [place], [place]) Address [address] [place] [address] Care Team Providers Care Watchguard Name Role Phone Reji Castro MD Primary Care Provider + [phone] Encounter Details Date Type Department Care Team (Late st Contact Info) Description 08/20/2021 Transcribed Document [facility] [place] [facility] [place] [address] ProviderDelvin MD [address] [place] [address] [phone] Social History Tobacco Use Types Packs/Day Years [...] On: 08/20/2021 5:00 EDT by Eula Tinoco, Cigar Head Stringer-Health Unit Coord Height and Weight, Routine Routine Weight Source : Standing scale Routine Weight Entry Format : [place] Routine Weight, Pounds : 204 lb Routine Weight, Ounces : 7 oz Routine Weight Calculation : 92.93 kg Height Source : Stated Height Entry Format : [place] Height, Feet : 5 ft Height, Inches : 4 Inch Clinical Height : 162.56 cm Body Surface Area (BSA), Routine : 1.98 m2 Body Mass Index (BMI), Routine : 35.17 kg/m2 Eula Tinoco, Cigar Head Stringer-Health Unit [facility] - 08/20/2021 6:41 EDT Electronically signed by Lanny, [facility] Conversion Harmonic Analyst Cerner at 03/09/2023 8:44 PM CDT documented in this encounter Plan of Treatment Not on file documented as of this encounter Visit Diagnoses Not on filedocumented in this encounter Care Teams Watchguard Relationship Specialty Start Date End Date Reji Castro MD [address] [place] [id number] PCP - General Adolescent Medicine 10/02/22 documented as of this encounter
--- OUTSIDE RECORDS SUMMARY | 2025-06-13 12:59 | XMS_ITS | Encounter Summary ---
Author Organization [employer] ([place], [place], [place], [place]) Address [address] [place] [address] Care Team Providers Care Dental Technician Metal Name Role Phone Reji Castro MD Primary Care Provider + [phone] Encounter Details Date Type Department Care Team (Late st Contact Info) Description 08/11/2021 Transcribed Document [facility] [place] Family Medicine [address] [place] [address] ProviderDelvin MD [address] [place] [address] [phone] Social History Tobacco Use Types Packs/Day Years [...] pin. Replacement, mitral valve, with cardiopulmonary bypass (82062). sternotomy. hernia repair, abdominal. sigmoid colon resection. Tendon sheath incision (eg, for trigger finger) (12689). jaw surgery, left. great toe surger, left. [...] % LOW Lymph # 0.76 K/uL LOW Churchill % 8.9 % [place] # 0.61 K/uL Eos % 4.4 % Eos # 0.30 Baso % 0.4 % Baso # 0.03 Slide Review No PT 18.9 Second(s) HI INR 1.8 HI PTT 39.6 Second(s) HI Urine Type U CleanCatch Urine Color Yellow Urine Appearance Clear Urine Specific [place] 1.007 Urine pH Dipstick 6.5 Urine Leukocyte Esterase Negative Urine Nitrite Negative Urine Protein Dipstick Negative Urine Glucose Dipstick Negative Urine Ketones Dipstick Negative Urine Urobilinogen Dipstick 0.2 EU/dL Urine Bilirubin Dipstick Negative Urine Blood Dipstick Negative Ur WBC None Seen /HPF Ur Squamous Epithelial Cells 0-2 /HPF . Radiology results: Radiology Results (Last 48 hours) [id number] -- 08/11/2021 16:16 CR Chest 1 Vw [...] understanding of instructions. Electronically signed by Lanny [facility] Conversion Education Professional Cerner at 03/09/2023 8:55 PM CDT documented in this encounter Plan of Treatment Not on file documented as of this encounter Visit Diagnoses Not on filedocumented in this encounter Care Teams Dental Technician Metal Relationship Specialty Start Date End Date Reji Castro MD [address] [place] [id number] PCP - General Adolescent Medicine 10/02/22 documented as of this encounter
--- OUTSIDE RECORDS SUMMARY | 2025-06-13 12:59 | XMS_ITS | Encounter Summary ---
Author Organization [employer] ([place], [place], [place], [place]) Address [address] [place] [address] Care Team Providers Care Adjusto Writer Operator Name Role Phone Reji Castro MD Primary Care Provider + [phone] Encounter Details Date Type Department Care Team (Late st Contact Info) Description 08/26/2021 Transcribed Document [facility] [place] [address] ProviderDelvin MD [address] [place] [address] [phone] Social History Tobacco Use Types Packs/Day Years [...] cefTRIAXone: 2 Gram, 100 mL/Hr, IV Piggyback, [id number] diphenhydrAMINE: 25 mg, Oral, Q6H, PRN: Itching [...] Oral, BID cefTRIAXone 2 Gram, IV Piggyback, [id number] citalopram 20 mg tab 40 mg 2 [...] Bioprosthetic mitral valve replacement / SNOMED CT 876627344 / Confirmed Chronic kidney disease / SNOMED CT 2754255933 / Confirmed COPD - Chronic obstructive pulmonary disease / SNOMED CT 787236955 / Confirmed History of obstructive sleep apnea / IMO [id number] / Confirmed HLD - Hyperlipidemia / SNOMED CT 568044920 / Confirmed HTN - Hypertension / SNOMED CT 1710502568 / Confirmed Canceled: Atrial fibrillation / SNOMED CT 77750194, Active Problems (25) AIHA (autoimmune hemolytic anemia) [...] GFR adjust medications. Electronically signed by Lanny, [facility] Conversion Quality Assurance Manager Cerner at 03/09/2023 8:56 PM CDT documented in this encounter Plan of Treatment Not on file documented as of this encounter Visit Diagnoses Not on filedocumented in this encounter Care Teams Adjusto Writer Operator Relationship Specialty Start Date End Date Reji Castro MD [address] [place] [id number] PCP - General Adolescent Medicine 10/02/22 documented as of this encounter
--- OUTSIDE RECORDS SUMMARY | 2025-06-13 12:59 | XMS_ITS | Encounter Summary ---
Author Organization [employer] ([place], [place], [place], [place]) Address [address] [place] [address] Care Team Providers Care Business Rules Analyst Name Role Phone Reji Castro MD Primary Care Provider + [phone] Encounter Details Date Type Department Care Team (Late st Contact Info) Description 08/11/2021 Transcribed Document [facility] [place] [facility] [place] [address] ProviderDelvin MD [address] [place] [address] [phone] Social History Tobacco Use Types Packs/Day Years [...] you, Noy Garrett, PharmD PGY-1 Resident Pager #[phone] Electronically signed by Loki [employer]version Bottling Equipment Sales Representative Cerner at 03/09/2023 8:45 PM CDT documented in this encounter Plan of Treatment Not on file documented as of this encounter Visit Diagnoses Not on filedocumented in this encounter Care Teams Business Rules Analyst Relationship Specialty Start Date End Date Reji Castro MD [address] [place] [address] PCP - General Adolescent Medicine 10/02/22 documented as of this encounter
--- OUTSIDE RECORDS SUMMARY | 2025-06-13 12:59 | XMS_ITS | Encounter Summary ---
Author Organization [employer] ([place], [place], [place], [place]) Address [address] [place] [address] Care Team Providers Care Associate Chief Nurse Name Role Phone Reji Castro MD Primary Care Provider + [phone] Encounter Details Date Type Department Care Team (Late st Contact Info) Description 08/15/2021 Transcribed Document [facility] [place] [facility] [place] [address] ProviderDelvin MD [address] [place] [address] [id number] Social History Tobacco Use Types Packs/Day Years [...] Hold home meds SSI #Depression Celexa #Pain [place] 10 mg every 6 hours as [...] levothyroxine, 25 mcg= 1 Tab, Oral, Daily [place] 10 mg-325 mg oral tablet, 1 Tab, [...] # 0.58 x10(3)/uL (Low) 08/14/2021 16:02 EDT [place] % 7.1 % 08/15/2021 03:42 EDT [place] % 7.9 % 08/14/2021 16:02 EDT Dodge # 0.50 K/uL 08/15/2021 03:42 EDT [place] # 0.53 K/uL 08/14/2021 16:02 EDT Eos [...] (Low) 08/14/2021 16:02 EDT Electronically signed by [facility] Conversion Historical Interpreter Cerner at 03/09/2023 8:47 PM CDT documented in this encounter Plan of Treatment Not on file documented as of this encounter Visit Diagnoses Not on filedocumented in this encounter Care Teams Associate Chief Nurse Relationship Specialty Start Date End Date Reji Castro MD [address] [place] [address] PCP - General Adolescent Medicine 10/02/22 documented as of this encounter
--- OUTSIDE RECORDS SUMMARY | 2025-06-13 12:59 | XMS_ITS | Encounter Summary ---
Author Organization [employer] ([place], [place], [place], [place]) Address [address] [place] [address] Care Team Providers Care Project Development Leader Name Role Phone Reji Castro MD Primary Care Provider + [phone] Encounter Details Date Type Department Care Team (Late st Contact Info) Description 08/11/2021 Transcribed Document [facility] [place] Family Medicine [address] [place] [address] ProviderDelvin MD [address] [place] [address] Social History Tobacco Use Types Packs/Day [...] in this encounter Care Teams Project Development Leader Relationship Specialty Start Date End Date Reji Castro MD [address] [place] [address] PCP - General Adolescent Medicine 10/02/22 documented as of this encounter
--- OUTSIDE RECORDS SUMMARY | 2025-06-13 12:59 | XMS_ITS | Encounter Summary ---
Author Organization [employer] ([place], [place], [place], [place]) Address [address] [place] [address] Care Team Providers Care Poultry Slaughterer Name Role Phone Reji Castro MD Primary Care Provider + [phone] Encounter Details Date Type Department Care Team (Late st Contact Info) Description 08/11/2021 Transcribed Document [facility] [place] [address] [place] [address] ProviderDelvin MD [address] [place] [address] [phone] Social History Tobacco Use Types Packs/Day Years [...] On: 08/11/2021 16:19 EDT by MICHAEL NAM, TRANSFORMER MAKER Triage Across the Room Chief Complaint [...] : 3 - Urgent Tracking Group : [facility] ED MICHAEL NAM RN - 08/11/2021 [...] 08/11/2021 16:25:12 EDT) Problems(Active) Amblyopia (SNOMED CT :3920254393 ) Name of Problem: Amblyopia ; Recorder: Whitney Razo RN; Confirmation: Confirmed ; Classification: Patient Stated ; Code: [id number] ; Contributor System: PowerChart ; Last Updated: 05/03/2014 19:25 EDT ; Life Cycle Date: 12/02/2013 ; Life Cycle Status: Active ; Vocabulary: SNOMED CT ; Comments: 12/02/2013 0:50 - Whitney Razo RN lazy eye blindness (left eye) Arthritis (SNOMED CT :7672521 ) Name of Problem: Arthritis ; Recorder: Whitney Razo RN; Confirmation: Confirmed ; Classification: Patient Stated ; Code: 9304371 ; Contributor System: PowerChart ; Last Updated: 05/03/2014 19:25 EDT ; Life Cycle Date: 12/02/2013 ; Life Cycle Status: Active ; Vocabulary: SNOMED CT Atrial fibrillation (SNOMED CT :52303134 ) Name of Problem: Atrial fibrillation ; Recorder: Whitney Razo RN; Confirmation: Confirmed ; Classification: Patient Stated ; Code: 65830723 ; Contributor System: PowerChart ; Last Updated: 05/03/2014 19:25 EDT ; Life Cycle Date: 12/02/2013 ; Life Cycle Status: Active ; Vocabulary: SNOMED CT Back pain (PNED :[id number] ) Name of Problem: Back pain ; Recorder: Whitney Razo RN; Confirmation: Confirmed ; Classification: Patient Stated ; Code: [id number] ; Contributor System: PowerChart ; Last Updated: 05/07/2014 9:11 EDT ; Life Cycle Date: 12/02/2013 ; Life Cycle Status: Active ; Vocabulary: PNED Bowel obstruction (SNOMED CT :475413554 ) Name of Problem: Bowel obstruction ; Recorder: Whitney Razo RN; Confirmation: Confirmed ; Classification: Patient Stated ; Code: 008628390 ; Contributor System: PowerChart ; Last Updated: 05/03/2014 19:25 EDT ; Life Cycle Date: 12/02/2013 ; Life Cycle Status: Active ; Vocabulary: SNOMED CT Bronchitis (SNOMED CT :10275264 ) Name of Problem: Bronchitis ; Recorder: Whitney Razo RN; Confirmation: Confirmed ; Classification: Patient Stated ; Code: 05029207 ; Contributor System: PowerChart ; Last Updated: 05/03/2014 19:25 EDT ; Life Cycle Date: 12/02/2013 ; Life Cycle Status: Active ; Vocabulary: SNOMED CT Cardiac arrhythmia (SNOMED CT :0746520060 ) Name of Problem: Cardiac arrhythmia ; Recorder: Whitney Razo RN; Confirmation: Confirmed ; Classification: Patient Stated ; Code: 0763275413 ; Contributor System: PowerChart ; Last Updated: 05/03/2014 19:25 EDT ; Life Cycle Date: 12/02/2013 ; Life Cycle Status: Active ; Vocabulary: SNOMED CT Cardiomyopathy (SNOMED CT :468497504 ) Name of Problem: Cardiomyopathy ; Recorder: Whitney Razo RN; Confirmation: Confirmed ; Classification: Patient Stated ; Code: 366650743 ; Contributor System: PowerChart ; Last Updated: 05/03/2014 19:25 EDT ; Life Cycle Date: 12/02/2013 ; Life Cycle Status: Active ; Vocabulary: SNOMED CT COPD (SNOMED CT :14125701 ) Name of Problem: COPD ; Recorder: Whitney Razo RN; Confirmation: Confirmed ; Classification: Patient Stated ; Code: 00880352 ; Contributor System: PowerChart ; Last Updated: 05/07/2014 9:10 EDT ; Life Cycle Date: 12/02/2013 ; Life Cycle Status: Active ; Vocabulary: SNOMED CT Diabetes mellitus (SNOMED CT :777239231 ) Name of Problem: Diabetes mellitus ; Recorder: Whitney Razo RN; Confirmation: Confirmed ; Classification: Patient Stated ; Code: 728138983 ; Contributor System: PowerChart ; Last Updated: 05/03/2014 19:25 EDT ; Life Cycle Date: 12/02/2013 ; Life Cycle Status: Active ; Vocabulary: SNOMED CT Diabetes mellitus type II (SNOMED CT :54435418 ) Name of Problem: Diabetes mellitus type II ; Recorder: Whitney Razo RN; Confirmation: Confirmed ; Classification: Patient Stated ; Code: 20732561 ; Contributor System: PowerChart ; Last Updated: 05/07/2014 9:12 EDT ; Life Cycle Date: 12/02/2013 ; Life Cycle Status: Active ; Vocabulary: SNOMED CT Diverticulosis (SNOMED CT :4178317486 ) Name of Problem: Diverticulosis ; Recorder: Whitney Razo RN; Confirmation: Confirmed ; Classification: Patient Stated ; Code: 3914555307 ; Contributor System: PowerChart ; Last Updated: 05/03/2014 19:25 EDT ; Life Cycle Date: 12/02/2013 ; Life Cycle Status: Active ; Vocabulary: SNOMED CT Edema (SNOMED CT :962020042 ) Name of Problem: Edema ; Recorder: Whitney Razo RN; Confirmation: Confirmed ; Classification: Patient Stated ; Code: 281378826 ; Contributor System: PowerChart ; Last Updated: 05/03/2014 19:25 EDT ; Life Cycle Date: 12/02/2013 ; Life Cycle Status: Active ; Vocabulary: SNOMED CT ; Comments: 12/02/2013 1:45 - Whitney Razo RN BLE Fibromyalgia (SNOMED CT :79647577 ) Name of Problem: Fibromyalgia ; Recorder: Whitney Razo RN; Confirmation: Confirmed ; Classification: Patient Stated ; Code: 90046202 ; Contributor System: PowerChart ; Last Updated: [...] GERD - Gastro-esophageal reflux disease (SNOMED CT :4458447693 ) Name of Problem: GERD - Gastro-esophageal reflux disease ; Recorder: Whitney Razo RN; Confirmation: Confirmed ; Classification: Patient Stated ; Code: 7387668645 ; Contributor System: PowerChart ; Last Updated: 05/07/2014 9:09 EDT ; Life Cycle Date: 12/02/2013 ; Life Cycle Status: Active ; Vocabulary: SNOMED CT Heart failure (SNOMED CT :215759079 ) Name of Problem: Heart failure ; Recorder: Whitney Razo RN; Confirmation: Confirmed ; Classification: Patient Stated ; Code: 342282581 ; Contributor System: PowerChart ; Last Updated: 05/03/2014 19:25 EDT ; Life Cycle Date: 12/02/2013 ; Life Cycle Status: Active ; Vocabulary: SNOMED CT Heart valve (SNOMED CT :128653334 ) Name of Problem: Heart valve ; Recorder: Whitney Razo RN; Confirmation: Confirmed ; Classification: Patient Stated ; Code: 105792375 ; Contributor System: PowerChart ; Last Updated: 05/07/2014 9:14 EDT ; Life Cycle Date: 12/02/2013 ; Life Cycle Status: Active ; Vocabulary: SNOMED CT Hepatomegaly (SNOMED CT :899174779 ) Name of Problem: Hepatomegaly ; Recorder: Whitney Razo RN; Confirmation: Confirmed ; Classification: Patient Stated ; Code: 064569234 ; Contributor System: PowerChart ; Last Updated: 05/03/2014 19:25 EDT ; Life Cycle Date: 12/02/2013 ; Life Cycle Status: Active ; Vocabulary: SNOMED CT High blood pressure (SNOMED CT :37878612 ) Name of Problem: High blood pressure ; Recorder: Whitney Razo RN; Confirmation: Confirmed ; Classification: Patient Stated ; Code: 90229128 ; Contributor System: PowerChart ; Last Updated: 05/03/2014 19:25 EDT ; Life Cycle Date: 12/02/2013 ; Life Cycle Status: Active ; Vocabulary: SNOMED CT Hyperlipidemia (SNOMED CT :77142000 ) Name of Problem: Hyperlipidemia ; Recorder: Whitney Razo RN; Confirmation: Confirmed ; Classification: Patient Stated ; Code: 29563946 ; Contributor System: PowerChart ; Last Updated: 05/03/2014 19:25 EDT ; Life Cycle Date: 12/02/2013 ; Life Cycle Status: Active ; Vocabulary: SNOMED CT Lazy eye (SNOMED CT :764582688 ) Name of Problem: Lazy eye ; Recorder: Whitney Razo RN; Confirmation: Confirmed ; Classification: Patient Stated ; Code: 636055306 ; Contributor System: PowerChart ; Last Updated: 05/03/2014 19:25 EDT ; Life Cycle Date: 12/02/2013 ; Life Cycle Status: Active ; Vocabulary: SNOMED CT ; Comments: 12/02/2013 0:49 - Whitney Razo RN lazy eye blindness (left eye) Myocardial infarction (SNOMED CT :83324935 ) Name of Problem: Myocardial infarction ; Recorder: Whitney Razo RN; Confirmation: Confirmed ; Classification: Patient Stated ; Code: 84239666 ; Contributor System: PowerChart ; Last Updated: [...] Cycle Status: Active Ovarian cyst (SNOMED CT :595854184 ) Name of Problem: Ovarian cyst ; Recorder: Whitney Razo RN; Confirmation: Confirmed ; Classification: Patient Stated ; Code: 636150357 ; Contributor System: PowerChart ; Last Updated: 05/03/2014 19:25 EDT ; Life Cycle Date: 12/02/2013 ; Life Cycle Status: Active ; Vocabulary: SNOMED CT Renal calculus (SNOMED CT :357901253 ) Name of Problem: Renal calculus ; Recorder: Whitney Razo RN; Confirmation: Confirmed ; Classification: Patient Stated ; Code: 495167849 ; Contributor System: PowerChart ; Last Updated: 05/03/2014 19:25 EDT ; Life Cycle Date: 12/02/2013 ; Life Cycle Status: Active ; Vocabulary: SNOMED CT Restless legs syndrome (SNOMED CT :52577003 ) Name of Problem: Restless legs syndrome ; Recorder: Whitney Razo RN; Confirmation: Confirmed ; Classification: Patient Stated ; Code: 59686462 ; Contributor System: PowerChart ; Last Updated: 05/03/2014 19:25 EDT ; Life Cycle Date: 12/02/2013 ; Life Cycle Status: Active ; Vocabulary: SNOMED CT Thyroid disease (SNOMED CT :989422222 ) Name of Problem: Thyroid disease ; Recorder: Whitney Razo RN; Confirmation: Confirmed ; Classification: Patient Stated ; Code: 201337457 ; Contributor System: ROKT ; Last Updated: 05/03/2014 19:25 EDT ; Life Cycle Date: 12/02/2013 ; Life Cycle Status: Active ; Vocabulary: SNOMED CT Diagnoses(Active) Medical screening exam Date: 08/11/2021 ; Diagnosis Type: Reason For Visit ; Confirmation: Complaint of ; Clinical Dx: Medical screening exam ; Classification: Medical ; Clinical Service: Emergency medicine ; Code: PNED ; Probability: 0 ; Diagnosis Code: [id number] ED Height and Weight Height Source : Stated Height Entry Format : [place] Height, Feet : 5 ft(Converted to: 152 cm, 60 Inch) Height, Inches : 4 Inch(Converted to: 0 ft 4 Inch, 10.16 cm) Clinical Height : 162.56 cm Weight Source, ED : Critical estimated dosing weight Weight Entry Format : [place] Weight, Pounds : 190 lb Clinical Dosing Weight : 86.36 kg Body Surface Area (BSA) : 1.92 m2 Body Mass Index : 32.7 kg/m2 ([place]) [place] Body Weight (IBW) : 54.3 kg MICHAEL NAM RN - 08/11/2021 16:19 EDT documented in this encounter Plan of Treatment Not on file documented as of this encounter Visit Diagnoses Not on filedocumented in this encounter Care Teams Poultry Slaughterer Relationship Specialty Start Date End Date Reji Castro MD [address] [place] [id number] PCP - General Adolescent Medicine 10/02/22 documented as of this encounter
--- OUTSIDE RECORDS SUMMARY | 2025-06-13 12:59 | XMS_ITS | Encounter Summary ---
Author Organization [employer] ([place], [place], [place], [place]) Address [address] [place] [address] Care Team Providers Care Legal Financial Specialist Name Role Phone Reji Castro MD Primary Care Provider + [phone] Encounter Details Date Type Department Care Team (Late st Contact Info) Description 08/15/2021 Transcribed Document [facility] [place] [address] [place] [address] ProviderDelvin MD [address] [place] [address] [phone] Social History Tobacco Use Types Packs/Day Years [...] on filedocumented in this encounter Care Teams Legal Financial Specialist Relationship Specialty Start Date End Date Reji Castro MD [address] [place] [address] PCP - General Adolescent Medicine 10/02/22 documented as of this encounter
--- OUTSIDE RECORDS SUMMARY | 2025-06-13 12:59 | XMS_ITS | Encounter Summary ---
Author Organization [employer] ([place], [place], [place], [place]) Address [address] [place] [address] Care Team Providers Care Pharmacy Account Director Name Role Phone Reji Castro MD Primary Care Provider + [phone] Encounter Details Date Type Department Care Team (Late st Contact Info) Description 08/15/2021 Transcribed Document [facility] [place] [facility] [place] [address] ProviderDelvin MD [address] [place] [address] [phone] Social History Tobacco Use Types Packs/Day Years [...] RN - International - 08/16/2021 2:41 EDT Electronically signed by Loki Ca Conversion Certified Adapted Physical Educator Cerner at 03/14/2023 2:04 PM CDT documented in this encounter Plan of Treatment Not on file documented as of this encounter Visit Diagnoses Not on filedocumented in this encounter Care Teams Pharmacy Account Director Relationship Specialty Start Date End Date Reji Castro MD [address] [place] [id number] PCP - General Adolescent Medicine 10/02/22 documented as of this encounter
--- OUTSIDE RECORDS SUMMARY | 2025-06-13 12:59 | XMS_ITS | Encounter Summary ---
Author Organization [employer] ([place], [place], [place], [place]) Address [address] [place] [address] Care Team Providers Care Transportation Maintenance Specialist Name Role Phone Reji Castro MD Primary Care Provider + [phone] Encounter Details Date Type Department Care Team (Late st Contact Info) Description 08/11/2021 Transcribed Document [facility] [place] Family Medicine [address] [place] [address] ProviderDelvin MD [address] [place], [place] [phone] Social History Tobacco Use Types Packs/Day Years [...] : Low risk (0) [place] Interventions : [place] precautions for safety used MARIPOSA JACQUES RN - 08/11/2021 18:46 EDT documented in this encounter Plan of Treatment Not on file documented as of this encounter Visit Diagnoses Not on filedocumented in this encounter Care Teams Transportation Maintenance Specialist Relationship Specialty Start Date End Date Reji Castro MD [address] [place] [id number] PCP - General Adolescent Medicine 10/02/22 documented as of this encounter
--- OUTSIDE RECORDS SUMMARY | 2025-06-13 12:59 | XMS_ITS | Encounter Summary ---
Author Organization [employer] ([place], [place], [place], [place]) Address [address] [place] [address] Care Team Providers Care Spd Tech Name Role Phone Reji Castro MD Primary Care Provider [phone] Encounter Details Date Type Department Care Team (Late st Contact Info) Description 08/20/2021 Transcribed Document [facility] Radiology [address] [place] [address] Loren Solorzano MD [address] [place] [address] [place] [address] Social History Tobacco Use Types Packs/Day Years [...] cefTRIAXone: 2 Gram, 100 mL/Hr, IV Piggyback, [id number] diphenhydrAMINE: 25 mg, Oral, Q6H, PRN: Itching [...] Oral, BID cefTRIAXone 2 Gram, IV Piggyback, L70OPhd citalopram 20 mg tab 40 mg 2 [...] Bioprosthetic mitral valve replacement / SNOMED CT 314502033 / Confirmed Chronic kidney disease / SNOMED CT 4552938040 / Confirmed COPD - Chronic obstructive pulmonary disease / SNOMED CT 338394149 / Confirmed History of obstructive sleep apnea / IMO 47082933 / Confirmed HLD - Hyperlipidemia / SNOMED CT 963293080 / Confirmed HTN - Hypertension / SNOMED CT 9858298164 / Confirmed Canceled: Atrial fibrillation / SNOMED CT 62896310, Active Problems (25) AIHA (autoimmune hemolytic anemia) [...] 25.9 \ Radiology Results (Last 48 hours) [id number] -- 08/11/2021 21:21 CR Fluoro in OR (08/19/2021 08:15) Result: FLUOROSCOPY IN THE ORHISTORY: Staph infection.FINDINGS: Fluoroscopy was provided by the radiology department [id number] placement. 1 spot film was submittedFLUOROSCOPY TIME: [...] Medications: cefTRIAXone 2 Gram, IV Piggyback, Inj, Q77HYoz, infuse over 30 Minute(s), Routine, Start 08/20/21 [...] Hold home meds SSI #Depression Celexa #Pain [place] 10 mg every 6 hours as needed Dispo: Given patient with history of multiple transfusion we will keep patient in the hospital on heparin drip and Coumadin till INR therapeutic need IV abx, at least until 09/08. Discussed with community case manager. Time spent 25 minutes documented in this encounter Plan of Treatment Not on file documented as of this encounter Visit Diagnoses Not on filedocumented in this encounter Care Teams Spd Tech Relationship Specialty Start Date End Date Reji Castro MD [address] [place] [phone] PCP - General Adolescent Medicine 10/02/22 documented as of this encounter
--- OUTSIDE RECORDS SUMMARY | 2025-06-13 12:59 | XMS_ITS | Encounter Summary ---
Author Organization [email or web address] ([place], [place], [place], [place]) Address [address] [place] [address] Care Team Providers Care Brick Wheeler Name Role Phone Reji Castro MD Primary Care Provider + [phone] Encounter Details Date Type Department Care Team (Late st Contact Info) Description 08/15/2021 Transcribed Document [facility] [place] [facility] [place] [address] ProviderDelvin MD [address] [place] [address] [phone] Social History Tobacco Use Types Packs/Day Years [...] mL - 700 mg, IV Piggyback, Inj, K82LWnc, infuse over 30 Minute(s), Routine Cardiovascular metoprolol [...] PRN for Pain (Severe 7-10), Routine acetaminophen-hydrocodone ([place] 10 mg-325 mg oral tablet) - 1 [...] hrs) Last Charted Minimum Maximum Temp 97.8 ([facility] 09:37) 97.8 ([facility] 09:37) 98.1 ([facility] 06:00) Apical HR 82 ([facility] 20:41) 82 ([facility] 20:41) 82 ([facility] 20:41) Mon HR 82 ([facility] 09:37) 58 ([facility] 22:00) 91 ([facility] 06:00) Resp Rate 17 (AUG 15 09:37) 16 ([facility] 17:21) 18 ([facility] 06:00) SBP 102 ([facility] 09:37) 91 ([facility] 06:00) 108 ([facility] 23 17:21) DBP 61 ([facility] 09:37) L 54 ([facility] 06:00) 76 ([facility] 23 17:21) MAP 81 ([facility] 09:37) 68 ([facility] 03:00) 86 ([facility] 23 17:21) SpO2 94 ([facility] 06:00) L 91 ([facility] 22:00) 97 ([facility] 03:00) General: No acute distress. Eye: Extraocular [...] on filedocumented in this encounter Care Teams Brick Wheeler Relationship Specialty Start Date End Date Reji Castro MD [address] [place] [id number] PCP - General Adolescent Medicine 10/02/22 documented as of this encounter
--- OUTSIDE RECORDS SUMMARY | 2025-06-13 12:59 | XMS_ITS | Encounter Summary ---
Author Organization [employer] ([place], [place], [place], [place]) Address [address] [place] [address] Care Team Providers Care Instructional Assistant Name Role Phone Reji Castro MD Primary Care Provider + [phone] Encounter Details Date Type Department Care Team (Late st Contact Info) Description 08/11/2021 Transcribed Document [facility] [place] Medicine [address] [place] [address] ProviderDelvin MD [address] [place] [address] [phone] Social History Tobacco Use Types Packs/Day Years [...] 08/12/2021 9:32 EDT Electronically signed by Lanny [facility] Conversion Computer Technology Instructor Cerner at 03/09/2023 8:42 PM CDT documented in this encounter Plan of Treatment Not on file documented as of this encounter Visit Diagnoses Not on filedocumented in this encounter Care Teams Instructional Assistant Relationship Specialty Start Date End Date Reji Castro MD [address] [place] [address] PCP - General Adolescent Medicine 10/02/22 documented as of this encounter
--- OUTSIDE RECORDS SUMMARY | 2025-06-13 12:59 | XMS_ITS | Encounter Summary ---
Author Organization [employer] ([place], [place], [place], [place]) Address [address] [place] [address] Care Team Providers Care Tread Tuber Machine Operator Name Role Phone Reji Castro MD Primary Care Provider + [phone] Encounter Details Date Type Department Care Team (Late st Contact Info) Description 08/26/[address] [facility] [place] [address] [place] [address] ProviderDelvin MD [address] [place] [address] [phone] Social History Tobacco Use Types Packs/Day Years [...] 08/26/2021 4:16 EDT Electronically signed by Lanny [facility] Conversion Sugar Mill Worker Cerner at 03/09/2023 8:32 PM CDT documented in this encounter Plan of Treatment Not on file documented as of this encounter Visit Diagnoses Not on filedocumented in this encounter Care Teams Tread Tuber Machine Operator Relationship Specialty Start Date End Date Reji Castro MD [address] [place] [address] PCP - General Adolescent Medicine 10/02/22 documented as of this encounter
--- OUTSIDE RECORDS SUMMARY | 2025-06-13 12:59 | XMS_ITS | Encounter Summary ---
Author Organization [employer] ([place], [place], [place], [place]) Address [address] [place] [address] Care Team Providers Care Oracle Ebs Architect Name Role Phone Reji Castro MD Primary Care Provider + [phone] Encounter Details Date Type Department Care Team (Late st Contact Info) Description 08/20/2021 Transcribed Document [facility] [place] Family Medicine [facility] [place] [address] ProviderDelvin MD [address] [place] [address] [phone] Social History Tobacco Use Types Packs/Day Years [...] 08/20/2021 9:59 EDT Electronically signed by Lanny [facility] Conversion Cable Wirer Cerner at 03/09/2023 8:58 PM CDT documented in this encounter Plan of Treatment Not on file documented as of this encounter Visit Diagnoses Not on filedocumented in this encounter Care Teams Oracle Ebs Architect Relationship Specialty Start Date End Date Reji Castro MD [address] [place] [address] PCP - General Adolescent Medicine 10/02/22 documented as of this encounter
--- OUTSIDE RECORDS SUMMARY | 2025-06-13 12:59 | XMS_ITS | Encounter Summary ---
Author Organization [employer] ([place], [place], [place], [place]) Address [address] [place] [address] Care Team Providers Care Financial Analyst Intern Name Role Phone Reji Castro MD Primary Care Provider + [phone] Encounter Details Date Type Department Care Team (Late st Contact Info) Description 08/26/2021 Transcribed Document [facility] [place] [facility] [address] ProviderDelvin MD [address] [place] [address] [phone] Social History Tobacco Use Types Packs/Day Years Used Date Smoking Tobacco: Never Assessed Comments Unknown Sex and Gender Information Value Date Recorded Sex Assigned at Not on file Legal Sex Female 4:32 PM CDT Gender Identity Not on file Sexual Orientation Not on file documented as of this encounter Miscellaneous Notes * Cerner Conversion Note - Historical ProviderMD - 08/26/2021 2:00 AM CDT Cartridge Feeder Details Entered On: 08/26/2021 4:16 EDT Performed [...] filedocumented in this encounter Care Teams Financial Analyst Intern Relationship Specialty Start Date End Date Reji Castro MD [address] [place] [address] PCP - General Adolescent Medicine 10/02/22 documented as of this encounter
--- OUTSIDE RECORDS SUMMARY | 2025-06-13 12:59 | XMS_ITS | Encounter Summary ---
Author Organization [employer] ([place], [place], [place], [place]) Address [address] [place] [address] Care Team Providers Care Manufacturing Operations Manager Name Role Phone Reji Castro MD Primary Care Provider + [phone] Encounter Details Date Type Department Care Team (Late st Contact Info) Description 08/11/2021 Transcribed Document [facility] [place] Family Medicine [facility] [place] [address] ProviderDelvin MD [address] [place] [address] [phone] Social History Tobacco Use Types Packs/Day Years [...] EDT `Nurse Report (Hand Off) : Called Ntaali Brock RN-PATIENT CARE BEDSIDE NON-EXEMPT - 08/11/2021 22:44 EDT Electronically signed by Lanny [facility] Conversion Roaster Helper Cerner at 03/09/2023 8:55 PM CDT documented in this encounter Plan of Treatment Not on file documented as of this encounter Visit Diagnoses Not on filedocumented in this encounter Care Teams Manufacturing Operations Manager Relationship Specialty Start Date End Date Reji Castro MD [address] [place] [address] PCP - General Adolescent Medicine 10/02/22 documented as of this encounter
--- OUTSIDE RECORDS SUMMARY | 2025-06-13 12:59 | XMS_ITS | Encounter Summary ---
Author Organization [email or web address] ([place], [place], [place], [place]) Address [address] [place] [address] Care Team Providers Care Market Master Name Role Phone Reji Castro MD Primary Care Provider + [phone] Encounter Details Date Type Department Care Team (Late st Contact Info) Description 08/26/2021 Transcribed Document [facility] [facility] [place] [address] ProviderDelvin MD [address] [place] [address] [phone] Social History Tobacco Use Types Packs/Day Years [...] Daily INR Will follow, Zeyad SnowD, BCPS [phone] Electronically signed by Lanny, [facility] Conversion Global Program Director Cerner at 03/09/2023 8:52 PM CDT documented in this encounter Plan of Treatment Not on file documented as of this encounter Visit Diagnoses Not on filedocumented in this encounter Care Teams Market Master Relationship Specialty Start Date End Date Reji Castro MD [address] [place] [address] PCP - General Adolescent Medicine 10/02/22 documented as of this encounter
--- OUTSIDE RECORDS SUMMARY | 2025-06-13 12:59 | XMS_ITS | Encounter Summary ---
Author Organization [employer] ([place], [place], [place], [place]) Address [address] [place] [address] Care Team Providers Care Police And Fire Dispatcher Name Role Phone Reji Castro MD Primary Care Provider + [phone] Encounter Details Date Type Department Care Team (Late st Contact Info) Description 08/11/2021 Transcribed Document [facility] [place] [facility] [place] [address] ProviderDelvin MD [address] [place] [address] [phone] Social History Tobacco Use Types Packs/Day Years [...] Communication Barrier : None Primary Language : Guatemalan Any Spiritual/Cultural Needs or Requests : No [...] filedocumented in this encounter Care Teams Police And Fire Dispatcher Relationship Specialty Start Date End Date Reji Castro MD [address] [place] [address] PCP - General Adolescent Medicine 10/02/22 documented as of this encounter
--- OUTSIDE RECORDS SUMMARY | 2025-06-13 12:59 | XMS_ITS | Encounter Summary ---
Author Organization [employer] ([place], [place], [place], [place]) Address [address] [place] [address] Care Team Providers Care Program Management Analyst Name Role Phone Reji Castro MD Primary Care Provider + [phone] Encounter Details Date Type Department Care Team (Late st Contact Info) Description 08/15/2021 Transcribed Document [facility] [place] Family Medicine [address] [place] [address] ProviderDelvin MD [address] [place] [address] [phone] Social History Tobacco Use Types Packs/Day Years [...] On: 08/15/2021 10:34 EDT by JULIO STEWART RN-Supervisor [employer] ED Care Management Progress Note Discharge Arrangements [...] : Clinical Condition of Patient JULIO STEWART, RN-Supervisor [employer] ED - 08/18/2021 10:34 EDT Narrative Progress [...] and send referrals as appropriate. JULIO STEWART, RN-Supervisor [employer] ED - 08/18/2021 10:34 EDT Electronically signed by Lanny [facility] Conversion Greenskeeper Head Cerner at 03/09/2023 8:33 PM CDT documented in this encounter Plan of Treatment Not on file documented as of this encounter Visit Diagnoses Not on filedocumented in this encounter Care Teams Program Management Analyst Relationship Specialty Start Date End Date Reji Castro MD [address] [place] [address] PCP - General Adolescent Medicine 10/02/22 documented as of this encounter
--- OUTSIDE RECORDS SUMMARY | 2025-06-13 12:59 | XMS_ITS | Encounter Summary ---
Author Organization [employer] ([place], [place], [place], [place]) Address [address] [place] [address] Care Team Providers Care Hosiery Pairer Name Role Phone Reji Castro MD Primary Care Provider + [phone] Encounter Details Date Type Department Care Team (Late st Contact Info) Description 08/20/2021 Transcribed Document [facility] [place] [address] [place] [address] ProviderDelvin MD [address] [place] [address] [phone] Social History Tobacco Use Types Packs/Day Years [...] on filedocumented in this encounter Care Teams Hosiery Pairer Relationship Specialty Start Date End Date Reji Castro MD [address] [place] [address] PCP - General Adolescent Medicine 10/02/22 documented as of this encounter
--- OUTSIDE RECORDS SUMMARY | 2025-06-13 12:59 | XMS_ITS | Encounter Summary ---
Author Organization [employer] ([place], [place], [place], [place]) Address [address] [place] [address] Care Team Providers Care Manager Administrative Name Role Phone Reji Castro MD Primary Care Provider + [phone] Encounter Details Date Type Department Care Team (Late st Contact Info) Description 08/15/2021 Transcribed Document [facility] [place] [facility] [place] [address] ProviderDelvin MD [address] [place] [address] [phone] Social History Tobacco Use Types Packs/Day Years [...] mg, 14 mL, 128 mL/Hr, IV Piggyback, P88VUyo. docusate-senna: 1 Tab, Oral, BID. famotidine: 20 [...] questions. Thank you, Andrea Moraes, PharmD PGY1 Catering Barista Pager: [phone]. [phone] documented in this encounter Plan of Treatment Not on file documented as of this encounter Visit Diagnoses Not on filedocumented in this encounter Care Teams Manager Administrative Relationship Specialty Start Date End Date Reji Castro MD [address] [place] [phone] PCP - General Adolescent Medicine 10/02/22 documented as of this encounter
[2025-06-13] MEDS: NOREPINEPHRINE BITARTRATE 8 MG in 0.9 % SODIUM CHLORIDE 250 ML 15.48 MG IV (13:00)
--- NOTE | 2025-06-13 13:00 | PC.NURSE ---
Kris Moore APRN is s/w pt's daughter Urszula De La Garza regarding CODE status and update. Urszula states she needs to call her sister and then let us know.
--- OUTSIDE RECORDS SUMMARY | 2025-06-13 13:00 | XMS_ITS | Encounter Summary ---
Author Organization [employer] ([place], [place], [place], [place]) Address [address] [place] [address] Care Team Providers Care Work Ticket Distributor Name Role Phone Reji Castro MD Primary Care Provider + [phone] Encounter Details Date Type Department Care Team (Late st Contact Info) Description 08/19/2021 Transcribed Document [facility] [place] Family Medicine [address] [place] [address] ProviderDelvin MD [address] [place] [address] [phone] Social History Tobacco Use Types Packs/Day Years [...] on filedocumented in this encounter Care Teams Work Ticket Distributor Relationship Specialty Start Date End Date Reji Castro MD [address] [place] [address] PCP - General Adolescent Medicine 10/02/22 documented as of this encounter
--- OUTSIDE RECORDS SUMMARY | 2025-06-13 13:00 | XMS_ITS | Encounter Summary ---
Author Organization [employer] ([place], [place], [place], [place]) Address [address] [place] [address] Care Team Providers Care Banking Officer Name Role Phone Reji Castro MD Primary Care Provider + [phone] Encounter Details Date Type Department Care Team (Late st Contact Info) Description 08/14/2021 Transcribed Document [facility] [place] Family Medicine [facility] [place] [address] ProviderDelvin MD [address] [place] [address] [phone] Social History Tobacco Use Types Packs/Day Years [...] on filedocumented in this encounter Care Teams Banking Officer Relationship Specialty Start Date End Date Reji Castro MD [address] [place] [address] PCP - General Adolescent Medicine 10/02/22 documented as of this encounter
--- OUTSIDE RECORDS SUMMARY | 2025-06-13 13:00 | XMS_ITS | Encounter Summary ---
Author Organization [employer] ([place], [place], [place], [place]) Address [address] [place] [address] Care Team Providers Care Parachute Rigger Name Role Phone Reji Castro MD Primary Care Provider + [phone] Encounter Details Date Type Department Care Team (Late st Contact Info) Description 08/25/2021 Transcribed Document [facility] [place] [address] [place] [address] ProviderDelvin MD [address] [place] [address] [phone] Social History Tobacco Use Types Packs/Day Years [...] On: 08/25/2021 10:48 EDT by Porfirio Caban Booster Pump Operator Cert Lead Meds to Bed Enrollment Patient Enrollment Decision: : No/do not enroll in meds to bed program Reason for Declining Meds to Bed Program: : Prefer to use home pharmacy Porfirio Caban Booster Pump Operator Cert Lead - 08/26/2021 11:11 EDT Electronically signed by Loki Ca Conversion Corrective And Manual Arts Therapist Cerner at 03/09/2023 8:47 PM CDT documented in this encounter Plan of Treatment Not on file documented as of this encounter Visit Diagnoses Not on filedocumented in this encounter Care Teams Parachute Rigger Relationship Specialty Start Date End Date Reji Castro MD [address] [place] [address] PCP - General Adolescent Medicine 10/02/22 documented as of this encounter
--- OUTSIDE RECORDS SUMMARY | 2025-06-13 13:00 | XMS_ITS | Encounter Summary ---
Author Organization [employer] ([place], [place], [place], [place]) Address [address] [place] [address] Care Team Providers Care Applied Psychology Teacher Name Role Phone Reji Castro MD Primary Care Provider + [phone] Encounter Details Date Type Department Care Team (Late st Contact Info) Description 08/19/2021 Transcribed Document [facility] [place] Family Medicine [address] [place] [address] ProviderDelvin MD [address] [place] [address] [phone] Social History Tobacco Use Types Packs/Day Years [...] Phlebosclerosis. PROCEDURE PERFORMED: Right IJ PowerPort placement. WET SUIT GLUER: Cherri Ya. ANESTHESIA: Local MAC. FINDINGS: An 8-Slovenian single lumen PowerPort was placed using a [...] and J-wire followed by passage of the 8-Slovenian single-lumen catheter. Once again, fluoroscopy was used [...] taken to the Recovery in stable condition. /[id number] Sandeep Holliday MD [facility]/TONYA / DOTTIE / DARIL /[id number] Electronically signed by Lanny [facility] Conversion Crawler Dragline Operator Cerner at 03/09/2023 8:44 PM CDT documented in this encounter Plan of Treatment Not on file documented as of this encounter Visit Diagnoses Not on filedocumented in this encounter Care Teams Applied Psychology Teacher Relationship Specialty Start Date End Date Reji Castro MD [address] [place] [address] PCP - General Adolescent Medicine 10/02/22 documented as of this encounter
--- OUTSIDE RECORDS SUMMARY | 2025-06-13 13:00 | XMS_ITS | Encounter Summary ---
Author Organization [employer] ([place], [place], [place], [place]) Address [address] [place] [address] Care Team Providers Care Day Camp Counselor Name Role Phone Reji Castro MD Primary Care Provider + [phone] Encounter Details Date Type Department Care Team (Late st Contact Info) Description 08/19/2021 Transcribed Document [facility] [place] [facility] [place] [address] ProviderDelvin MD [address] [place] [phone] Social History Tobacco Use Types Packs/Day Years [...] EDT by MADINA LOVETT RN - Senior PartnerDictating Machine Mechanic Progress Note Discharge Arrangements : Patient Post-Acute [...] : Yes MADINA LOVETT RN - Senior Partner - 08/19/2021 15:34 EDT Narrative Progress Note [...] [place]. [facility] home [facility] is a possibility. Historical [...] follow. DCP: MADINA LOVETT RN - Senior Partner - 08/18/21 15:47:49 (late entry from 08/15-) [...] send referrals as appropriate. JULIO STEWART, JEREMIAH-Senior Partner ED - 08/18/21 10:38:39 MADINA LOVETT, RN - Senior Partner - 08/19/2021 15:34 EDT documented in this encounter Plan of Treatment Not on file documented as of this encounter Visit Diagnoses Not on filedocumented in this encounter Care Teams Day Camp Counselor Relationship Specialty Start Date End Date Reji Castro MD [address] [place] [address] PCP - General Adolescent Medicine 10/02/22 documented as of this encounter
--- OUTSIDE RECORDS SUMMARY | 2025-06-13 13:00 | XMS_ITS | Encounter Summary ---
Author Organization [employer] ([place], [place], [place], [place]) Address [address] [place] [address] Care Team Providers Care Cold Roll Operator Name Role Phone Reji Castro MD Primary Care Provider + [phone] Encounter Details Date Type Department Care Team (Late st Contact Info) Description 08/19/2021 Transcribed Document [facility] [place] [address] [place] [address] ProviderDelvin MD [address] [place] [address] [id number] Social History Tobacco Use Types Packs/Day Years Used Date Smoking Tobacco: Never Assessed Comments Unknown Sex and Gender Information Value Date Recorded Sex Assigned at Not on file Legal Sex Female 4:32 PM CDT Gender Identity Not on file Sexual Orientation Not on file documented as of this encounter Miscellaneous Notes * [employer]ner Conversion Note - Delvin ProviderMD - 08/19/2021 7:51 AM CDT [facility] Main OR IntraOp Summary Primary Physician: NENA PEARSON MD-TATYANA Finalized Date/Time: 08/20/21 09:11:26 Pt. Name: TAMAYO IRINAMARCIO GhoshO.B./Sex: 1965 Female Med Rec #: [id number] Physician: VINCE BELLO MD Financial #: [id number] Pt. Type: I Room/Bed: [facility]/ Admit/Disch: 08/11/21 21:21:00 - Institution: [facility] IntraOp Case Attendance Entry 1 Entry 2 Entry 3 Case Attendee NENA PEARSON MD-ERNESTO FISCHER APRN, BURBERRY, KEITH MD-ANS LIVE AMMUNITION INSPECTOR Role Performed Surgeon/Proceduralist, LIVE AMMUNITION INSPECTOR/Nurse Marble Cleaner Anesthesiologist of First Record Time In 08/19/21 [...] YULIA JIM, SCRUB Josh Rivera, ALICIA SOTELO, TEMPLATE CUTTER/CSA TECH Role Performed [place] Bottom Maker, First Well Service Floorperson, First Scrub, First Time In 08/19/21 07:29:00 08/19/21 07:29:00 08/19/21 07:29:00 Time Out 08/19/21 08:24:00 08/19/21 08:24:00 08/19/21 08:24:00 Procedure Vascular Access Vascular Access Vascular Access Insertion Insertion Insertion Other Attendee Superficial Wound Closed By: Last Modified By: Josh Rivera RN Pantano, Scott, Josh Perez, JEREMIAH 08/19/21 08:35:46 08/19/21 08:35:46 08/19/21 08:35:46 Entry 7 Case Attendee David Greene, Direct Mail Coordinator Role Performed Flight Attendant Time In 08/19/21 07:55:00 Time Out 08/19/21 08:07:00 Procedure Vascular Access Insertion Other Attendee Superficial Wound Closed By: Last Modified By: Josh Rivera RN 08/19/21 08:35:46 [facility] IntraOp Case Attendance Audit 08/19/21 08:35:46 Cold Working Supervisor: JAZLYN Modifier: JAZLYN 1 <+> Time Out [...] <*> Procedure Vascular Access Insertion 08/19/21 08:07:27 Cold Working Supervisor: JAZLYN Modifier: PANTANOS 1 <*> Procedure Vascular Access Insertion 2 <*> Procedure Vascular Access Insertion 3 <*> Procedure Vascular Access Insertion 4 <*> Procedure Vascular Access Insertion 5 <*> Procedure Vascular Access Insertion 6 <*> Procedure Vascular Access Insertion 7 <+> Time In 7 <+> Time Out 7 <*> Procedure Vascular Access Insertion 08/19/21 08:04:07 Cold Working Supervisor: JAZLYN Modifier: PANTANOS <+> 7 Case Attendee <+> 7 Role Performed <+> 7 Procedure 08/19/21 08:00:27 Cold Working Supervisor: JAZLYN Modifier: MAKENNAANOS 1 <*> Procedure Vascular Access Insertion 2 <*> Procedure Vascular Access Insertion 3 <*> Procedure Vascular Access Insertion 4 <+> Time In 4 <*> Procedure Vascular Access Insertion 5 <+> Time In 5 <*> Procedure Vascular Access Insertion 6 <+> Time In 6 <*> Procedure Vascular Access Insertion 08/19/21 07:52:21 Cold Working Supervisor: JAZLYN Modifier: PANTANOS <+> 1 Procedure 2 <+> Time In 2 <*> Procedure Vascular Access Insertion 3 <+> Time In 3 <*> Procedure Vascular Access Insertion <+> 4 Case Attendee <+> 4 Role Performed <+> 4 Procedure <+> 5 Case Attendee <+> 5 Role Performed <+> 5 Procedure <+> 6 Case Attendee <+> 6 Role Performed <+> 6 Procedure [facility] IntraOp Case Times Entry 1 Patient In Room Time 08/19/21 07:29:00 Out Room Time 08/19/21 08:24:00 Anesthesia Start Time 08/19/21 07:29:00 Stop Time 08/19/21 08:24:00 Surgery / Procedure Times Start Time 08/19/21 07:51:00 Stop Time 08/19/21 08:17:00 Last Modified By: Josh Rivera RN 08/19/21 08:24:22 [facility] IntraOp Case Times Audit 08/19/21 08:24:22 Cold Working Supervisor: JAZLYN Modifier: MAKENNAANOS <+> 1 Out Room Time <+> 1 Stop Time <+> 1 Stop Time 08/19/21 07:51:02 Cold Working Supervisor: JAZLYN Modifier: JUDITHS <+> 1 Start Time [facility] IntraOp Cautery Entry 1 ESU Identification Cautery Type Monopolar ESU ID Number [id number] ID Type Hospital Number Cautery Settings Cut Setting 30 Coag Setting 30 ESU Grounding Pad Ground Pad Type Adult Grounding Pad Site Right Buttock Grounding Pad Josh Rivera RN Applied By Grounding Pad Site Intact Skin Condition Before Cautery Grounding Pad Site Intact Skin Condition After Cautery Last Modified By: Josh Rivera RN 08/19/21 07:52:52 [facility] IntraOp Communication Entry 1 Communication To Family/Significant other Communication By Josh Rivera RN Last Modified By: Josh Rivera RN 08/19/21 07:58:45 [facility] IntraOp Counts Verification Entry 1 Procedure Vascular Access Insertion Count Info Count Type Sponge, Sharps, Miscellaneous Counts Verification Baseline/pre-procedure Sequence Count Results Correct, surgeon notified Counts Performed By Count Performed By ALICIA MACIAS SCRUB (Scrub) TECH Count Performed By Josh Rivera RN (RN) Last Modified By: Josh Rivera RN 08/19/21 07:53:18 [facility] IntraOp Counts Final Entry 1 Procedure Vascular Access Insertion Final Count Info Count Type Sponge, Sharps, Miscellaneous Counts Verification Skin Closure/end of Sequence procedure Count Results Correct, surgeon notified Counts Performed By Count Performed By ALICIA MACIAS SCRUB (Scrub) TECH Count Performed By Josh Rivera RN (RN) Last Modified By: Josh Rivera RN 08/19/21 07:53:41 [facility] IntraOp Departure from OR Entry 1 Integumentary Assessment Integumentary WDL Assessment WDL Transfer/Handoff Transfer to Nursing unit Handoff Method Bedside/Face to face, Online nursing summary Post-op Transport Stretcher/[place] Via Patient Transport ERNESTO SOUSA APRN, Accompanied by LIVE AMMUNITION INSPECTOR Last Modified By: Josh Rivera RN 08/19/21 08:02:48 [facility] IntraOp Departure from OR Audit 08/19/21 08:02:48 Cold Working Supervisor: JAZLYN Modifier: JAZLYN 1 <*> Transfer to Ambulatory unit, Phase II 1 <+> Patient Transport Accompanied by [facility] IntraOp Dressing and Packing Entry 1 Type Dressing Location OPSITE Wound Dressing Item Skin Closure Glue Applied By YULIA JIM SCRUB TECH/OCTAVIO Last Modified By: Josh Rivera RN 08/19/21 07:54:28 [facility] IntraOp Fire Risk Assessment Entry 1 Fire [...] Modified By: Josh Rivera RN 08/19/21 07:53:55 [facility] Intra General Case Criminal Justice Instructor 1 Case Information OR OR 06 [facility] Case Level 1 Room Verified Yes Wound Class I - Clean Specialty General ASA Class 4 Diagnosis Preop Diagnosis IV Access Postop Same As Preop Yes Postop Diagnosis IV Access Last Modified By: Josh Rivera RN 08/19/21 07:58:27 [facility] IntraOp Intraoperative Assessment Entry 1 Handoff Method [...] Modified By: Josh Rivera RN 08/19/21 07:59:09 [facility] IntraOp Intraoperative Equipment Entry 1 Type Monitoring Equipment Intraop Monitoring Electrocardiogram Three lead placement (ECG) Electrode Placement Blood Pressure Non-Invasive BP Device Source Blood Pressure Arm, right upper Location Pulse Oximeter Hand, left Probe Site Antiembolic Devices Scopes Photo/Video Documentation Last Modified By: Josh Rivera RN 08/19/21 07:59:29 [facility] IntraOp Medication Admin Entry 1 Entry 2 Medication/Irrigant LIDOCAINE 1% WITH EPI Heplock 100units/ml 5ml 1:100,000 vial - [id number] Combo Med List Time Administered 08/19/21 07:59:00 08/19/21 07:59:00 Route of LOCAL HEP LOCK Administration Dose Dose 30 10 Unit of Measure ml ml Volume Administered By NENA PEARSON MD-SUR HARRIS, JOHN M, MD-SUR Procedure Irrigation Irrigant Volume In Irrigant Volume Out Last Modified By: Josh Rivera RN Pantano, Scott, RN 08/19/21 08:00:16 08/19/21 08:00:16 [facility] IntraOp Patient Positioning Entry 1 Procedure Vascular [...] By NENA PEARSON MD-SUR, ERNESTO SOUSA, SINDHU, LIVE AMMUNITION INSPECTOR, Josh Rivera RN Position Verified Positioning Yes Verified by Anesthesia Positioning Yes Verified by Surgeon Last Modified By: Josh Rivera RN 08/19/21 07:54:11 [facility] IntraOp Sign In Entry 1 Patient, Site, [...] Modified By: Josh Rivera RN 08/19/21 08:00:24 [facility] IntraOp Sign Out Entry 1 RN Confirmation [...] Modified By: Josh Rivera RN 08/19/21 08:35:34 [facility] IntraOp Sign Out Audit 08/19/21 08:35:34 Cold Working Supervisor: JUDITHKe Modifier: PANTANOS <+> 1 RN Sign Out Signature <+> 1 RN Sign Out Signature Date/Time <+> 1 Urinary Catheter Documented in IView [facility] IntraOp Skin Prep Entry 1 Procedure Vascular Access Insertion Prescribed N/A Pre-Surgical Prep Completed Prep Area CHIN THRU CHEST INCLUDE BILATERAL SHOULDERS Intraop Prep Prep Agents Chloraprep Hair Removal Last Modified By: Josh Rivera RN 08/19/21 07:58:31 [facility] IntraOp Surgical Procedures Entry 1 Procedure Vascular Access Insertion Additional (PORT A CATH PLACEMENT) Procedure Description Primary Procedure Yes Primary Surgeon NENA PEARSON MD-TATYANA Start 08/19/21 07:51:00 Stop 08/19/21 08:17:00 Anesthesia Type MAC Specialty General Wound Class I - Clean Last Modified By: Josh Rivera RN 08/19/21 08:35:09 [facility] IntraOp Surgical Procedures Audit 08/19/21 08:35:09 Cold Working Supervisor: JAZLYN Modifier: MAKENNAANOS <+> 1 Stop [facility] IntraOp Temp Regulation Devices Entry 1 Temp Regulation Temperature Warm blankets Regulation Device Temperature Full body Regulation Site Temperature ERNESTO SOUSA APRN, Regulation Device LIVE AMMUNITION INSPECTOR Applied by Last Modified By: Josh Rivera RN 08/19/21 07:54:19 [facility] IntraOP Time Out Entry 1 Procedure to [...] Modified By: Josh Rivera RN 08/19/21 08:02:27 [facility] IntraOP Time Out Audit 08/19/21 08:02:27 Cold Working Supervisor: JAZLYN Modifier: PANTANOS 1 <+> Beta Alessandra Administered 1 <*> Procedure to be Performed Vascular Access Insertion 08/19/21 08:00:58 Cold Working Supervisor: JAZLYN Modifier: PANTANOS 1 <+> All activity [...] <+> Team Verbally Confirms Information 08/19/21 08:00:32 Cold Working Supervisor: JAZLYN Modifier: PANTANOS <+> 1 Procedure to be Performed [facility] IntraOp X-Ray and Images Entry 1 X-Ray/Imaging Type Fluoroscopy Fluoroscopy Type C-Arm Site CHEST Envelope Sealer Operator Name David Greene, Direct Mail Coordinator Protective Devices Yes Used Last Modified By: Josh Rivera RN 08/19/21 08:04:48 Case Comments <None> Finalized By: WILNER DUPONT Document Signatures Signed By: Josh Rivera RN 08/19/21 08:35 WILNER DUPONT 08/20/21 09:11 Unfinalized History Date/Time Username Reason for Unfinalizing Freetext Reason for Unfinalizing 08/20/21 09:10 WATTORSTEN Correct Billing Electronically signed by [facility] Conversion Inside Sales Administrator Cerner at 03/09/2023 8:49 PM CDT documented in this encounter Plan of Treatment Not on file documented as of this encounter Visit Diagnoses Not on filedocumented in this encounter Care Teams Cold Roll Operator Relationship Specialty Start Date End Date Reji Castro MD [address] [place] [address] PCP - General Adolescent Medicine 10/02/22 documented as of this encounter
--- OUTSIDE RECORDS SUMMARY | 2025-06-13 13:00 | XMS_ITS | Encounter Summary ---
Author Organization [employer] ([place], [place], [place], [place]) Address [address] [place] [address] Care Team Providers Care Grab Driver Name Role Phone Reji Castro MD Primary Care Provider + [phone] Encounter Details Date Type Department Care Team (Late st Contact Info) Description 08/20/2021 Transcribed Document [facility] [place] [facility] [place] [address] ProviderDelvin MD [address] [place] [address] [phone] Social History Tobacco Use Types Packs/Day Years [...] # 0.38 x10(3)/uL (Low) 08/20/2021 07:38 EDT [place] % 7.9 % 08/20/2021 07:38 EDT [place] # 0.64 K/uL 08/20/2021 07:38 EDT Eos [...] (Critical) 08/20/2021 15:16 EDT Electronically signed by [facility], [facility] Conversion Switch Operator Cerner at 03/09/2023 8:31 PM CDT documented in this encounter Plan of Treatment Not on file documented as of this encounter Visit Diagnoses Not on filedocumented in this encounter Care Teams Grab Driver Relationship Specialty Start Date End Date Reji Castro MD [address] [place] [address] PCP - General Adolescent Medicine 10/02/22 documented as of this encounter
--- OUTSIDE RECORDS SUMMARY | 2025-06-13 13:00 | XMS_ITS | Encounter Summary ---
Author Organization [employer] ([place], [place], [place], [place]) Address [address] [place] [address] Care Team Providers Care Hides Soaker Name Role Phone Reji Castro MD Primary Care Provider + [phone] Encounter Details Date Type Department Care Team (Late st Contact Info) Description 08/14/2021 Transcribed Document [facility] [place] [facility] [place] [address] ProviderDelvin MD [address] [place] [address] [id number] Social History Tobacco Use Types Packs/Day Years Used Date Smoking Tobacco: Never Assessed Comments Unknown Sex and Gender Information Value Date Recorded Sex Assigned at Not on file Legal Sex Female 4:32 PM CDT Gender Identity Not on file Sexual Orientation Not on file documented as of this encounter Miscellaneous Notes * Cerner Conversion Note - Delvin ProviderMD - 08/14/2021 7:45 AM CDT [facility] Main OR Preop Summary Primary Physician: NENA PEARSON MD-[facility] Finalized Date/Time: 08/14/21 09:52:23 Pt. Name: IRINA TAMAYO D.O.B./Sex: 1965 Female Med Rec #: [id number] Physician: VINCE BELLO MD Financial #: [id number] Pt. Type: I Room/Bed: 454/1 Admit/Disch: 08/11/21 21:21:00 - Institution: [facility] PreOp Case Times Entry 1 In Preop 08/14/21 06:28:00 Ready for Holding n/a Room Patient Ready for 08/14/21 06:46:00 Surgery Patient Out of Preop 08/14/21 07:32:00 Patient Out of n/a Holding Room Last Modified By: Charan Dutton Rn 08/14/21 09:52:22 [facility] PreOp Case Times Audit 08/14/21 09:52:22 Loader Operator Supervisor: [id number] Modifier: [id number] <+> 1 Patient Out of Preop Finalized By: Charan Dutton, Rn Document Signatures Signed By: Charan Dutton Rn 08/14/21 09:52 Electronically signed by [facility] Conversion Private Branch Exchange Service Adviser Cerner at 03/09/2023 8:46 PM CDT documented in this encounter Plan of Treatment Not on file documented as of this encounter Visit Diagnoses Not on filedocumented in this encounter Care Teams Hides Soaker Relationship Specialty Start Date End Date Reji Castro MD [address] [place] [address] PCP - General Adolescent Medicine 10/02/22 documented as of this encounter
--- OUTSIDE RECORDS SUMMARY | 2025-06-13 13:00 | XMS_ITS | Encounter Summary ---
Author Organization [employer] ([place], [place], [place], [place]) Address [address] [address] Care Team Providers Care Coastal Tug Mate Name Role Phone Reji Castro MD Primary Care Provider + [phone] Encounter Details Date Type Department Care Team (Late st Contact Info) Description 08/14/2021 Transcribed Document [facility] [place] [facility] [place] [address] ProviderDelvin MD [address] [place] [address] [id number] Social History Tobacco Use Types Packs/Day Years [...] # 0.71 x10(3)/uL (Low) 08/13/2021 23:47 EDT [place] % 10.6 % (High) 08/13/2021 23:47 EDT [place] # 0.58 K/uL 08/13/2021 23:47 EDT Eos [...] (Low) 08/13/2021 18:40 EDT Electronically signed by [facility] Conversion Prop Setter Cerner at 03/09/2023 8:59 PM CDT documented in this encounter Plan of Treatment Not on file documented as of this encounter Visit Diagnoses Not on filedocumented in this encounter Care Teams Coastal Tug Mate Relationship Specialty Start Date End Date Reji Castro MD [address] [place] [id number] PCP - General Adolescent Medicine 10/02/22 documented as of this encounter
--- OUTSIDE RECORDS SUMMARY | 2025-06-13 13:00 | XMS_ITS | Encounter Summary ---
Author Organization [employer] ([place], [place], [place], [place]) Address [address] [place] [address] Care Team Providers Care Laboratory Operations Coordinator Name Role Phone Reji Castro MD Primary Care Provider + [phone] Encounter Details Date Type Department Care Team (Late st Contact Info) Description 08/17/2021 Transcribed Document [facility] [place] [facility] [place] [address] ProviderDelvin MD [address] [place] [address] Social History Tobacco Use Types Packs/Day [...] Historical ProviderMD - 08/17/2021 2:00 AM CDT Library Serials Assistant Details Entered On: 08/17/2021 1:07 EDT Performed [...] filedocumented in this encounter Care Teams Laboratory Operations Coordinator Relationship Specialty Start Date End Date Reji Castro MD [address] [place] [address] PCP - General Adolescent Medicine 10/02/22 documented as of this encounter
--- OUTSIDE RECORDS SUMMARY | 2025-06-13 13:00 | XMS_ITS | Encounter Summary ---
Author Organization [employer] ([place], [place], [place], [place]) Address [address] [place] [address] Care Team Providers Care Qlikview Developer Name Role Phone Reji Castro MD Primary Care Provider + [phone] Encounter Details Date Type Department Care Team (Late st Contact Info) Description 08/25/2021 Transcribed Document [facility] [place] [facility] [place] [address] ProviderDelvin MD [address] [place] [phone] Social History Tobacco Use Types Packs/Day Years [...] cefTRIAXone: 2 Gram, 100 mL/Hr, IV Piggyback, [id number] diphenhydrAMINE: 25 mg, Oral, Q6H, PRN: Itching [...] Oral, BID cefTRIAXone 2 Gram, IV Piggyback, [id number] citalopram 20 mg tab 40 mg 2 [...] Bioprosthetic mitral valve replacement / SNOMED CT 335694418 / Confirmed Chronic kidney disease / SNOMED CT 0965299609 / Confirmed COPD - Chronic obstructive pulmonary disease / SNOMED CT 228340209 / Confirmed History of obstructive sleep apnea / IMO [id number] / Confirmed HLD - Hyperlipidemia / SNOMED CT 238698659 / Confirmed HTN - Hypertension / SNOMED CT 4891087143 / Confirmed Canceled: Atrial fibrillation / SNOMED CT 97255042, Active Problems (25) AIHA (autoimmune hemolytic anemia) [...] on filedocumented in this encounter Care Teams Qlikview Developer Relationship Specialty Start Date End Date Reji Castro MD [address] [place] [address] PCP - General Adolescent Medicine 10/02/22 documented as of this encounter
--- OUTSIDE RECORDS SUMMARY | 2025-06-13 13:00 | XMS_ITS | Encounter Summary ---
Author Organization [employer] ([place], [place], [place], [place]) Address [address] [place] [address] Care Team Providers Care Value Engineer Name Role Phone Reji Castro MD Primary Care Provider + [phone] Encounter Details Date Type Department Care Team (Late st Contact Info) Description 08/20/2021 Transcribed Document [facility] [place] [facility] [place] [address] ProviderDelvin MD [address] [place] [address] [phone] Social History Tobacco Use Types Packs/Day Years [...] HPI: 56 y/o F presenting to [facility] with history of COPD, atrial fibrillation, CKD [...] cefTRIAXone: 2 Gram, 100 mL/Hr, IV Piggyback, [id number]. citalopram: 40 mg, Oral, Daily. diphenhydrAMINE: 50 [...] questions. Thank you, Andrea Moraes, PharmD PGY1 [employer] Pager: [phone], Ext. [phone] Electronically signed by [facility] Conversion Freight Trucker Cerner at 03/09/2023 8:58 PM CDT documented in this encounter Plan of Treatment Not on file documented as of this encounter Visit Diagnoses Not on filedocumented in this encounter Care Teams Value Engineer Relationship Specialty Start Date End Date Reji Castro MD [address] [place] [address] PCP - General Adolescent Medicine 10/02/22 documented as of this encounter
--- OUTSIDE RECORDS SUMMARY | 2025-06-13 13:00 | XMS_ITS | Encounter Summary ---
Author Organization [employer] ([place], [place], [place], [place]) Address [address] [place] [address] Care Team Providers Care Log Brander Name Role Phone Reji Castro MD Primary Care Provider + [phone] Encounter Details Date Type Department Care Team (Late st Contact Info) Description 08/12/2021 Transcribed Document [facility] [place] [address] ProviderDelvin MD [address] [place] [address] [id number] Social History Tobacco Use Types Packs/Day Years [...] port could not be accessed. Her city planning teacher aspirated fluid from the port that was evidently purulent. I have not yet been able to track down that culture. After the aspiration she developed fever to 103, severe CHEUNG, myalgias and arthralgias. She was admitted to [facility]. She was in the hospital for 10 [...] antibiotics. On 08/08 she presented to a [facility] after she developed severe CHEUNG and myalgias w/o prominent fever. She was subsequently contacted and told to report to [facility] because she had + blood cutures concerning for an infected portacath +/- PVE. 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 [...] mg, 14 mL, 128 mL/Hr, IV Piggyback, [id number] DAPTOmycin + Sodium Chloride 0.9% intravenous solution 50 mL: 700 mg, 14 mL, 128 mL/Hr, IV Piggyback, [id number] Dextrose 50% injection: 12.5 Gram, IV Push, [...] tenderness, No swelling, No deformity. Integumentary: Warm, [place]. Neurologic: Alert, Oriented, No focal deficits. Psychiatric: [...] Lanny [facility] Conversion Benefits Advisor Cerner at 03/09/2023 9:02 PM CDT documented in this encounter Plan of Treatment Not on file documented as of this encounter Visit Diagnoses Not on filedocumented in this encounter Care Teams Log Brander Relationship Specialty Start Date End Date Reji Castro MD [address] [place] [id number] PCP - General Adolescent Medicine 10/02/22 documented as of this encounter
--- OUTSIDE RECORDS SUMMARY | 2025-06-13 13:00 | XMS_ITS | Clinical Summary ---
Author Organization [facility] Address [address] [place] [address] Care Team Providers Care Bench Patternmaker Metal Name Role Phone Anna Marie Savage MD Primary Care Provider + Allergies Active Allergy Reactions Criticality Noted Date Comments Buprenorphine GI Intolerance 05/15/2014 Ceftriaxone Unknown - Low Severity 05/15/2014 Codeine Other (See Comments) 05/15/2014 Contrast Dye (Echo Or Unknown Ct/Mr) GI Intolerance 04/23/2020 Caused severe problems with kidneys Levofloxacin Unknown - Low Severity 05/15/2014 Medications aspirin 81 MG tablet aspirin 81 mg tablet Daily Active dilTIAZem CD (DILTIAZEM CD) 120 MG 24 hr capsule diltiazem CD 120 mg capsule,extended release 24 hr Active Bacillus Coagulans-Inulin (PROBIOTIC FORMULA) 1-250 BILLION-MG capsule Probiotic Formula 10 billion cell(2 billion ea) capsule Daily Active ALPRAZolam (XANAX) 0.5 MG tablet alprazolam 0.5 mg tablet Active citalopram (CeleXA) 40 MG tablet citalopram 40 mg tablet Active dexlansoprazole (DEXILANT) 60 MG capsule Dexilant 60 mg capsule, delayed release Active fluocinonide (LIDEX) 0.05 % cream fluocinonide 0.05 % topical cream Active levothyroxine (SYNTHROID, LEVOTHROID) 25 MCG tablet levothyroxine 25 mcg tablet Active metOLazone (ZAROXOLYN) 2.5 MG tablet metolazone 2.5 mg tablet Active oxyCODONE-acetami nophen (PERCOCET) 10-325 MG per tablet oxycodone-acetamin ophen 10 mg-325 mg tablet Active spironolactone (ALDACTONE) 50 MG tablet spironolactone 50 mg tablet Active torsemide (DEMADEX) 100 MG tablet torsemide 100 mg tablet Active warfarin (COUMADIN) 5 MG tablet warfarin 5 mg tablet Active folic acid (FOLVITE) 1 MG tablet Take 1 mg by mouth Daily. Active cholecalciferol (VITAMIN D3) 25 MCG (1000 UT) tablet Take 1,000 Units by mouth Daily. Active vitamin C (ASCORBIC ACID) 500 MG tablet Take 500 mg by mouth Daily. Active Blood Glucose Monitoring Suppl (QikUCH VERIO FLEX SYSTEM) w/Device kit 1 Device Daily. 1 kit 11/28/19 Active Lancets 30G misc Use as directed to test blood sugar 3 times daily 100 each 12/06/19 Active allopurinol (ZYLOPRIM) 300 MG tablet 04/17/20 Active oxyCODONE (ROXICODONE) 10 MG tablet 03/25/20 20 Active BYSTOLIC 5 MG tablet 04/02/20 Active Multiple Vitamin (VITAMIN E/FOLIC ACID/B-6/B-12 PO) Take 200 mg by mouth Daily. Active glucose blood (Vectra NetworksTouch Verio) test stripIndications: Uncontrolled type 2 diabetes mellitus with hyperglycemia Use as instructed to test 4 times daily 150 each 10/22/20 20 Active Insulin Lispro, 1 Unit Dial, (HumaLOG KwikPen) 100 UNIT/ML solution pen-injectorIndic ations:Uncontroll ed type 2 diabetes mellitus with hyperglycemia Take 20 units plus CF 2:50 >150 BID AC, TDD 60 units 18 mL 6 10/22/20 20 Active Continuous Blood Gluc Director Of Litigation (FreeStyle Gerson 2 [facility]) device 1 Device Continuous. 1 Device 12/16/19 21 Active Insulin Glargine, 1 Unit Dial, (Toujeo SoloStar) 300 UNIT/ML solution pen-injector injectionIndicati ons:Uncontrolled type 2 diabetes mellitus with hyperglycemia 80 units qAM 8 mL 01/22/20 21 Active Continuous Blood Gluc Sensor (FreeStyle Gerson 14 Day Sensor) misc 1 each Every 14 (Fourteen) Days. 2 each 01/22/20 Active Insulin Pen Needle (BD Pen Needle Mariely U/F) 32G X 4 MM miscIndications:U ncontrolled type 2 diabetes mellitus with hyperglycemia USE FOUR TIMES A DAY 100 each 11 01/08/20 23 Active Active Problems Problem Noted Date Diagnosed Date Acquired hypothyroidism 10/18/2019 CKD (chronic kidney disease) stage 3, GFR 30-59 ml/min 10/18/2019 Uncontrolled type 2 diabetes mellitus with hyper glycemia 11/05/2016 Hyperlipidemia 07/06/2016 Thyroiditis 12/31/2015 Social History Tobacco Use Types Packs/Day Years Used Date Smoking Tobacco: Never Assessed Abuse Screen Answer Date Recorded Unsafe at Home or Work/School Not on file Feels Threatened by Someone? Not on file 10/2023 Does Anyone Keep You from Co ntacting Others or Doint Things Outside the Home? Not on file 09/02/2023 Physical Sign of Abuse Present Not on file 1 Housing Stability Answer Date Recorded Current Living Arrangements Not on file 08/22 Potentially Unsafe Housing Conditions Not on pauline e 09/02/2023 Family and Community Support Answer Jose Luis e Recorded Help with Day-to-Day Activities Not on file 09/02/2023 Lonely or Isolated Not on file 09/02/2023 Employment Answer Date Recorded Do you want help finding or keeping work or a bill b? Not on file 09/02/2023 Disabilities Answer Date Recorded Concentrating, Remembering, or Making Decisions Difficulty Not on file 09/02/2023 Doing Errands Independently Difficulty Not on fi le 09/02/2023 Education Answer Date Recorded Help with school or training? Not on file Preferred Language Not on file 09/02/2023 Comments Unknown Sex and Gender Information Value Date Recorded Sex Assigned at Not on file Legal Sex Female 10:28 AM EST Gender Identity Not on file Sexual Orientation Not on file Last Filed Vital Signs Vital Sign Reading Time Taken Comments Blood Pressure 118/80 10/22/2020 3:28 PM EST Pulse 84 10/22/2020 3:28 PM EST Temperature - - Respiratory Rate - - Oxygen Saturation 98% 10/22/2020 3:28 PM EST Inhaled Oxygen Concentration - - Weight 88.1 kg (194 lb 3.2 oz) 10/22/2020 3:28 P M EST Height - - Body Mass Index - - Plan of Treatment Health Maintenance Due Date Last Done Comments Annual Gynecologic Pelvic an d Breast Exam 1965 TDAP/TD VACCINES (1 - Tdap) 1982 MAMMOGRAM 2003 COLOGUARD 2008 COLON CANCER SCREENING 5 YEA R SIGMOIDOSCOPY 2008 COLONOSCOPY [address] CANCER SCREENING [address] COLONOGRAPHY 2008 FECAL OCCULT BLOOD TEST 2008 FIT Testing (1 year) 2008 ZOSTER VACCINE (1 of 2) 2013 ANNUAL PHYSICAL 09/25/2019 HEPATITIS C SCREENING 09/25/2019 LIPID PANEL 10/22/2021 10/22/2020, 04/23/2020 Pneumococcal Vaccine 50+ (3 of 3 - PCV20 or PCV21) 03/03/2024 03/03/2019, 12/30/2018 COVID-19 Vaccine (1 - 2023-2 5 season) 2024 INFLUENZA VACCINE 08/22/2025 HEMOGLOBIN A1C Discontinued 11/20/2023, 1211/2019, 04/23/2020, Additional history exists Procedures Procedure Name Priority Date/Time Associated Diagnosis Comments LIPID PANEL Routine 10/22/2020 4:24 PM EST Uncontrolled type 2 diabetes mellitus with hyperglycemia POCT GLYCOSYLATED HEMOGLOBIN (HGB A1C) Routine 10/22/2020 3:37 PM EST Uncontrolled type 2 diabetes mellitus with hyperglycemia from Last 3 Months or Most Recently Relevant to Health Maintenance Results * (ABNORMAL) Lipid Panel (10/22/2020 4:24 PM EST) Total Cholesterol 142 0 - 200 mg/dL 10/23/2020 2:54 AM EST [facility] Triglycerides 132 0 - 150 mg/dL 10/23/2020 2:54 AM EST [facility] HDL Cholesterol 29(L) 40 - 60 mg/dL 10/23/2020 2:54 AM EST [facility] LDL Cholesterol 89 0 - 100 mg/dL 10/23/2020 2:54 AM [facility] VLDL Cholesterol 24 5 - 40 mg/dL 10/23/2020 2:54 AM [facility] LDL/HDL Ratio 2.99 10/23/2020 2:54 AM [facility] Blood Venipuncture / Unknown 10/22/2020 4:24 PM EST 10/22/2020 4:24 PM EST Narrative [facility] - 10/23/2020 2:54 AM EST Cholesterol Reference Ranges (U.S. Department of Health and Human Services ATP III Classifications) Desirable <200 mg/dL Borderline High 200-239 mg/dL High Risk >240 mg/dL Triglyceride Reference Ranges (U.S. Department of Health and Human Services ATP III Classifications) Normal <150 mg/dL Borderline High 150-199 mg/dL High 200-499 mg/dL Very High >500 mg/dL HDL Reference Ranges (U.S. Department of Health and Human Services ATP III Classifcations) Low <40 mg/dl (major risk factor for CHD) High >60 mg/dl ('negative' risk factor for CHD) LDL Reference Ranges (U.S. Department of Health and Human Services ATP III Classifcations) Optimal <100 mg/dL Near Optimal 100-129 mg/dL Borderline High 130-159 mg/dL High 160-189 mg/dL Very High >189 mg/dL us Dannielle SPEAR-C LAB BLOOD ORDERABLES Final Result [facility]
[address] [place] [address], [place] [phone] * POC Glycosylated Hemoglobin (Hb A1C) (10/22/2020 3:37 PM EST) Hemoglobin A1C 8.2 % [facility] Lot Number [id number] [facility] Expiration Date 07/23/2022 [facility] Blood 10/22/2020 3:37 PM EST us Vedrana Knezevic PA-C POINT OF CARE TEST ORDERAB LES Final Result [facility]
[address] [place] [address], [place] [phone] from Last 3 Months or Most Recently Relevant to Health Maintenance Insurance [facility] MEDICARE ADVANTAGE MEDICAID [place] Care Teams Bench Patternmaker Metal Relationship Specialty Start Date End Date Anna Marie Savage MD [address] [place] [address] PCP - General Internal Medicine 10/18/19
--- OUTSIDE RECORDS SUMMARY | 2025-06-13 13:00 | XMS_ITS | Encounter Summary ---
Author Organization [employer] ([place], [place], [place], [place]) Address [address] [place] [address] Care Team Providers Care Finance Vice President Name Role Phone Reji Castro MD Primary Care Provider + [phone] Encounter Details Date Type Department Care Team (Late st Contact Info) Description 08/19/2021 Transcribed Document [facility] Family Medicine [facility] [place] [address] ProviderDelvin MD [address] [place] [address] [phone] Social History Tobacco Use Types Packs/Day Years Used Date Smoking Tobacco: Never Assessed Comments Unknown Sex and Gender Information Value Date Recorded Sex Assigned at Not on file Legal Sex Female 4:32 PM CDT Gender Identity Not on file Sexual Orientation Not on file documented as of this encounter Miscellaneous Notes * Cerner Conversion Note - Delvin ProviderMD - 08/19/2021 7:30 AM CDT [facility] Main OR Preop Summary Primary Physician: NENA PEARSON MD-[facility] Finalized Date/Time: 08/19/21 07:37:55 Pt. Name: IRINA TAMAYO D.O.B./Sex: 1965 Female Med Rec #: [id number] Physician: VINCE BELLO MD Financial #: [id number] Pt. Type: I Room/Bed: [facility]/1 Admit/Disch: 08/11/21 21:21:00 - Institution: [facility] PreOp Case Times Entry 1 In Preop 08/19/21 05:49:00 Ready for Holding n/a Room Patient Ready for 08/19/21 06:35:00 Surgery Patient Out of Preop 08/19/21 07:33:00 Patient Out of n/a Holding Room Last Modified By: Merle Hicks Rn 08/19/21 07:37:[address] [facility] PreOp Case Times Audit 08/19/21 07:37:50 Architecture Faculty Member: MARITO Modifier: MFWARD <+> 1 Patient Out of Preop Finalized By: Merle Hicks Rn Document Signatures Signed By: Merle Hicks Rn 08/19/21 07:37 Electronically signed by Lanny [facility] Conversion Fingerprinter Cerner at 03/09/2023 8:32 PM CDT documented in this encounter Plan of Treatment Not on file documented as of this encounter Visit Diagnoses Not on filedocumented in this encounter Care Teams Finance Vice President Relationship Specialty Start Date End Date Reji Castro MD [address] [place] [id number] PCP - General Adolescent Medicine 10/02/22 documented as of this encounter
--- OUTSIDE RECORDS SUMMARY | 2025-06-13 13:00 | XMS_ITS | Encounter Summary ---
Author Organization [employer] ([place], [place], [place]) Address [address] [place] [address] Care Team Providers Care Skip Miner Blasting Name Role Phone Reji Castro MD Primary Care Provider + [phone] Encounter Details Date Type Department Care Team (Late st Contact Info) Description 08/26/2021 Transcribed Document [facility] Family Medicine [facility] [place] [address] ProviderDelvin MD [address] [place] [id number] Social History Tobacco Use Types Packs/Day Years [...] cefTRIAXone: 2 Gram, 100 mL/Hr, IV Piggyback, [id number] diphenhydrAMINE: 25 mg, Oral, Q6H, PRN: Itching [...] Oral, BID cefTRIAXone 2 Gram, IV Piggyback, [id number] citalopram 20 mg tab 40 mg 2 [...] Bioprosthetic mitral valve replacement / SNOMED CT 895390315 / Confirmed Chronic kidney disease / SNOMED CT 8401261366 / Confirmed COPD - Chronic obstructive pulmonary disease / SNOMED CT 839442126 / Confirmed History of obstructive sleep apnea / IMO [id number] / Confirmed HLD - Hyperlipidemia / SNOMED CT 356712093 / Confirmed HTN - Hypertension / SNOMED CT 6364171244 / Confirmed Canceled: Atrial fibrillation / SNOMED CT 90960540, Active Problems (25) AIHA (autoimmune hemolytic anemia) [...] 29.0 \ Radiology Results (Last 48 hours) [id number] -- 08/11/2021 21:21 CR Chest 1 Vw [...] Hold home meds SSI Depression Celexa Pain [place] 10 mg every 6 hours as needed CODE STATUS. Full code Dispo: H/H stable, neg trops, clinically better need therapeutic inr for discharge, pharm managing. hopefully in am Time spent 26 minutes documented in this encounter Plan of Treatment Not on file documented as of this encounter Visit Diagnoses Not on filedocumented in this encounter Care Teams Skip Miner Blasting Relationship Specialty Start Date End Date Reji Castro MD [address] [place] [id number] PCP - General Adolescent Medicine 10/02/22 documented as of this encounter
--- OUTSIDE RECORDS SUMMARY | 2025-06-13 13:00 | XMS_ITS | Encounter Summary ---
Author Organization [employer] ([place], [place], [place], [place]) Address [address] [place] [address] Care Team Providers Care Station Gateman Name Role Phone Reji Castro MD Primary Care Provider + [phone] Encounter Details Date Type Department Care Team (Late st Contact Info) Description 08/14/2021 Transcribed Document [facility] [place] [address] [place] [address] ProviderDelvin MD [address] [place] [address] [phone] Social History Tobacco Use Types Packs/Day Years [...] ProviderMD - 08/14/2021 7:45 AM CDT [facility] Main OR IntraOp Summary Primary Physician: NENA PEARSON MD-SUR Finalized Date/Time: 08/18/21 09:41:55 Pt. Name: TAMAYO IRINAMARCIO Latham D.O.B./Sex: 1965 Female Med Rec #: [id number] Physician: VINCE BELLO MD Financial #: [id number] Pt. Type: I Room/Bed: [facility]/ Admit/Disch: 08/11/21 21:21:00 - Institution: [facility] IntraOp Case Attendance Entry 1 Entry 2 Entry 3 Case Attendee NENA PEARSON MD-Erika Murry RN Poe, Kali JEREMIAH Role Performed Surgeon/Proceduralist, Back Facer, First Back Facer, Second First Time In 08/14/21 07:34:00 08/14/21 [...] Case Attendee Randee Swain, Scrub TAMELA PRITCHETT, [employer] BORIS VEGAS, Pedro Pablo FIGUEROA-ANS Role Performed Scrub, First [employer]/Nurse Road Grader Operator Anesthesiologist of Record Time In 08/14/21 07:34:00 08/14/21 07:34:00 08/14/21 07:34:00 Time Out 08/14/21 08:17:00 08/14/21 08:17:00 08/14/21 08:17:00 Procedure Vascular Access Removal Vascular Access Removal Vascular Access Removal Other Attendee Superficial Wound Closed By: Last Modified By: Erika Montgomery, Erika Chand, Erika Chand, JEREMIAH 08/14/21 08:22:17 08/14/21 08:22:17 08/14/21 08:22:17 Entry 7 Case Attendee OTHER, ATTENDEE #1 Role Performed [employer]/Nurse Road Grader Operator Time In 08/14/21 07:34:00 Time Out 08/14/21 08:17:00 Procedure Vascular Access Removal Other Attendee JOEY HOBBS [employer] STUDENT Superficial Wound Closed By: Last Modified By: Erika Montgomery RN 08/14/21 10:50:59 [facility] IntraOp Case Attendance Audit 08/14/21 10:50:59 Netsuite Consultant: LIMA Modifier: LIAM 7 <*> Procedure Vascular Access Removal 7 <*> Other Attendee JOEY PROCTOR [employer] STUDENT 08/14/21 08:24:52 Netsuite Consultant: LAFAVEHM Modifier: LAFAVEHM <+> 7 Case Attendee <+> 7 Role Performed <+> 7 Time In <+> 7 Time Out <+> 7 Procedure <+> 7 Other Attendee 08/14/21 08:22:17 Netsuite Consultant: LAFAVEHM Modifier: LAFAVEHM 1 <+> Time In [...] Out 6 <*> Procedure Vascular Access Removal [facility] IntraOp Case Times Entry 1 Patient In Room Time 08/14/21 07:34:00 Out Room Time 08/14/21 08:17:00 Anesthesia Start Time 08/14/21 07:34:00 Stop Time 08/14/21 08:17:00 Surgery / Procedure Times Start Time 08/14/21 07:45:00 Stop Time 08/14/21 08:08:00 Last Modified By: Erika Montgomery RN 08/14/21 08:17:16 [facility] IntraOp Case Times Audit 08/14/21 08:17:16 Netsuite Consultant: LAFAVEHM Modifier: LAFAVEHM <+> 1 Out Room Time <+> 1 Stop Time <+> 1 Stop Time 08/14/21 07:46:45 Netsuite Consultant: LAFAVEHM Modifier: LAFAVEHM <+> 1 Start Time [facility] IntraOp Cautery Entry 1 ESU Identification Cautery Type Monopolar ESU ID Number [id number] ID Type Hospital Number Cautery Settings Cut Setting 30 Coag Setting 30 ESU Grounding Pad Ground Pad Type Reusable electrode pad Grounding Pad Type MEGADYNE PAD Comment Grounding Pad Site Posterior Grounding Pad Site Warm, dry and intact Skin Condition Before Cautery Grounding Pad Site Unchanged Skin Condition After Cautery Last Modified By: Erika Montgomery RN 08/14/21 07:19:50 [facility] IntraOp Communication Entry 1 Communication To Family/Significant other Communication By Erika Montgomery RN Date and Time 08/14/21 07:47:00 Last Modified By: Erika Montgomery RN 08/14/21 07:47:41 [facility] IntraOp Counts Verification Entry 1 Procedure [...] [facility] IntraOp Counts Final Audit 08/14/21 08:02:40 Netsuite Consultant: LIAM Modifier: LIAM 1 <*> Procedure Vascular Access Removal 1 <*> Count Type Sponge, Sharps, Miscellaneous 1 <*> Count Results Correct, surgeon notified 1 <+> Count Performed By (Scrub) 1 <+> Count Performed By (RN) 1 <*> Counts Verification Sequence Skin Closure/end of procedure [facility] IntraOp Cultures and Spec Summary Entry 1 Cultrures and Specimens Specimen Ordered: Yes Test(s) Culture(s)/Microbiology Requested/Final Disposition Last Modified By: Erika Montgomery RN 08/14/21 07:51:28 [facility] IntraOp Delays Entry 1 Delay Reason Other Duration 4 Minute(s) Comment MEDICATION DELAY Last Modified By: Erika Montgomery RN 08/14/21 07:49:40 [facility] IntraOp Departure from OR Entry 1 Integumentary Assessment Transfer/Handoff Transfer to Other Handoff Method Bedside/Face to face, Phone call, Online nursing summary Post-op Transport Stretcher/Roderick Via Patient Transport TAMELA PRITCHETT CRNA Accompanied by Transfer/Handoff RN REPORT ( ELEVATED Comments HOB WEIGHT OVER DRRESSING (IV BAG) RESTRICT USE LEFT ARM X [address] PEARSON. TRANSPORT TO FLOOR BY [facility] Last Modified By: Erika Montgomery RN 08/14/21 08:21:55 [facility] IntraOp Departure from OR Audit 08/14/21 08:21:55 Netsuite Consultant: LIAM Modifier: LAFBEAR 1 <*> Transfer/Handoff Comments TRANSPORT TO FLOOR BY [facility] 1 <+> Post-op Transport Via [facility] IntraOp Dressing and Packing Entry 1 Type Dressing Location L UPPER CHEST Wound Dressing Item 4x4's, Skin Closure Glue Other Comments PRESSURE DRESSING Last Modified By: Erika Montgomery RN 08/14/21 08:19:18 [facility] IntraOp Fire Risk Assessment Entry 1 [...] Modified By: Erika Montgomery RN 08/14/21 07:49:49 [facility] IntraOp Fire Risk Assessment Audit 08/14/21 07:49:49 Netsuite Consultant: LIAM Modifier: LAFAVEHM <+> 1 Fire Risk Assessment Verified Date/Time [facility] Intra General Case Carton Filler 1 Case Information OR OR 08 [facility] Case Level 1 Room Verified Yes Wound Class I - Clean Specialty General Anesthesia Type MAC ASA Class 4 Diagnosis Preop Diagnosis INFECTED SANAM CATH Postop Same As Preop No Postop Diagnosis SEE MD POST OP NOTES Last Modified By: Erika Montgomery RN 08/14/21 07:52:14 [facility] IntraOp General Case Data Audit 08/14/21 07:52:14 Netsuite Consultant: LIAM Modifier: LAFAVEHM <+> 1 Preop Diagnosis [facility] IntraOp Intraoperative Assessment Entry 1 Handoff Method Bedside/Face to face, Phone call, Online nursing summary Valid History / Yes Physical in Chart Preoperative Yes Checklist Reviewed/Evaluated Allergies Reviewed Yes Patient is Latex No Sensitive Present Upon IVs Arrival to OR Last Modified By: Erika Montgomery RN 08/14/21 07:20:57 [facility] IntraOp Intraoperative Equipment Entry 1 Type Monitoring Equipment Equipment Juan Carlos Suction System Intraop Monitoring Antiembolic Devices Scopes Photo/Video Documentation Last Modified By: Erika Montgomery RN 08/14/21 07:21:08 [facility] IntraOp Medication Admin Entry 1 Medication/Irrigant lidocaine 1% w/ epinephrine 1:100,000 30ml vial - [id number] Route of LOCAL Administration Dose Dose 10 Unit of Measure ml Administered By NENA PEARSON MD-SUR Procedure Irrigation Last Modified By: Erika Montgomery RN 08/14/21 08:02:53 [facility] IntraOp Medication Admin Audit 08/14/21 08:02:53 Netsuite Consultant: LAFAVEHM Modifier: LAFAVEHM 1 <*> Medication/Irrigant lidocaine 1% w/ epinephrine 1:100,000 30ml vial - [id number] 1 <+> Dose [facility] IntraOp Patient Positioning Entry 1 Procedure [...] Modified By: Erika Montgomery RN 08/14/21 07:23:01 [facility] IntraOp Patient Positioning Audit 08/14/21 07:23:01 Netsuite Consultant: LAFAVEHM Modifier: LAFAVEHM 1 <*> Procedure Vascular Access Removal 1 <+> Positioning Verified by Anesthesia 1 <+> Positioning Verified by Surgeon 1 <+> Positioned By [facility] IntraOp Sign In Entry 1 Patient, [...] Modified By: Erika Montgomery RN 08/14/21 07:47:09 [facility] IntraOp Sign Out Entry 1 RN [...] Modified By: Erika Montgomery RN 08/14/21 08:22:10 [facility] IntraOp Sign Out Audit 08/14/21 08:22:10 Netsuite Consultant: LIAM Modifier: LAFAVEHM <+> 1 RN Sign Out Signature Date/Time [facility] IntraOp Skin Prep Entry 1 Procedure Vascular Access Removal Prescribed Yes Pre-Surgical Prep Completed Prep Area CHEST INCLUDE LEFT SHOULDER Intraop Prep Prep Agents Chloraprep Prep by NENA PEARSON MD-TATYANA Hair Removal Methods No hair removal performed Last Modified By: Erika Montgomery RN 08/14/21 07:49:03 [facility] IntraOp Surgical Procedures Entry 1 Procedure Vascular Access Removal Additional (PORT A CATH REMOVAL) Procedure Description Primary Procedure Yes Primary Surgeon NENA PEARSON MD-TATYANA Start 08/14/21 07:45:00 Stop 08/14/21 08:08:00 Anesthesia Type MAC Specialty General Wound Class I - Clean Last Modified By: Erika Montgomery RN 08/14/21 08:22:14 General Comments: PATIENT ON SCHEDULED ANTIBIOTICS/ NO ADDITIONAL ANTIBIOTICS PER SURGEON [facility] IntraOp Surgical Procedures Audit 08/14/21 08:22:14 Netsuite Consultant: LAFBEAR Modifier: LAFAVEHM 1 <*> Stop 08/14/21 07:48:13 Netsuite Consultant: LIAM Modifier: LIAM 1 <*> Start 1 <*> Start [facility] IntraOP Time Out Entry 1 Procedure [...] WATTSDR Correct Billing Electronically signed by [facility] Conversion Do All Operator Cerner at 03/09/2023 8:33 PM CDT documented in this encounter Plan of Treatment Not on file documented as of this encounter Visit Diagnoses Not on filedocumented in this encounter Care Teams Station Gateman Relationship Specialty Start Date End Date Reji Castro MD [address] [place] [id number] PCP - General Adolescent Medicine 10/02/22 documented as of this encounter
--- OUTSIDE RECORDS SUMMARY | 2025-06-13 13:00 | XMS_ITS | Encounter Summary ---
Author Organization [employer] ([place], [place], [place], [place]) Address [address] [place] [address] Care Team Providers Care Management Consulting Name Role Phone Reji Castro MD Primary Care Provider + [phone] Encounter Details Date Type Department Care Team (Late st Contact Info) Description 08/14/2021 Transcribed Document [facility] [place] Family Medicine [facility] [place] [address] ProviderDelvin MD [address] [place] [address] [phone] Social History Tobacco Use Types Packs/Day Years [...] # 0.71 x10(3)/uL (Low) 08/13/2021 23:47 EDT [place] % 10.6 % (High) 08/13/2021 23:47 EDT [place] # 0.58 K/uL 08/13/2021 23:47 EDT Eos [...] (Low) 08/13/2021 18:40 EDT Electronically signed by [facility], [facility] Conversion [employer] Bo[employer] Cerner at 03/09/2023 8:31 PM CDT documented in this encounter Plan of Treatment Not on file documented as of this encounter Visit Diagnoses Not on filedocumented in this encounter Care Teams Management Consulting Relationship Specialty Start Date End Date Reji Castro MD [address] [place] [id number] PCP - General Adolescent Medicine 10/02/22 documented as of this encounter
--- OUTSIDE RECORDS SUMMARY | 2025-06-13 13:00 | XMS_ITS | Encounter Summary ---
Author Organization [employer] ([place], [place], [place], [place]) Address [address] [place] [address] Care Team Providers Care Chemical Dependency Professional Name Role Phone Reji Castro MD Primary Care Provider + [phone] Encounter Details Date Type Department Care Team (Late st Contact Info) Description 08/19/2021 Transcribed Document [facility] [place] [facility] [address] ProviderDelvin MD [address] [place] [address] [phone] Social History Tobacco Use Types Packs/Day Years [...] her port could not be accessed. Her railroad hand aspirated fluid from the port that was evidently purulent. I have not yet been able to track down that culture. After the aspiration she developed fever to 103, severe CHEUNG, myalgias and arthralgias. She was admitted to [facility]. She was in the hospital for 10 [...] PVE. 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 Integumentary: Warm, [place]. Neurologic: Alert, Oriented, No focal deficits. Psychiatric: [...] on filedocumented in this encounter Care Teams Chemical Dependency Professional Relationship Specialty Start Date End Date Reji Castro MD [address] [place] [id number] PCP - General Adolescent Medicine 10/02/22 documented as of this encounter
--- OUTSIDE RECORDS SUMMARY | 2025-06-13 13:00 | XMS_ITS | Encounter Summary ---
Author Organization [employer] ([place], [place], [place]) Address [address] [place] [address] Care Team Providers Care Jig Builder Name Role Phone Reji Castro MD Primary Care Provider + [phone] Encounter Details Date Type Department Care Team (Late st Contact Info) Description 08/11/2021 Transcribed Document [facility] [place] [facility] [place] [address] ProviderDelvin MD [address] [place] [address] [phone] Social History Tobacco Use Types Packs/Day Years [...] on filedocumented in this encounter Care Teams Jig Builder Relationship Specialty Start Date End Date Reji Castro MD [address] [place] [id number] PCP - General Adolescent Medicine 10/02/22 documented as of this encounter
--- OUTSIDE RECORDS SUMMARY | 2025-06-13 13:00 | XMS_ITS | Encounter Summary ---
Author Organization [employer] ([place], [place], [place], [place]) Address [address] [place] [address] Care Team Providers Care Harness Racing Handicapper Name Role Phone Reji Castro MD Primary Care Provider + [phone] Encounter Details Date Type Department Care Team (Late st Contact Info) Description 08/25/2021 Transcribed Document [facility] [place] [facility] [place] [address] ProviderDelvin MD [address] [place] [address] [phone] Social History Tobacco Use Types Packs/Day Years [...] than 8. she tells me that her qm nurse has recommended she stay above 8 for [...] cefTRIAXone: 2 Gram, 100 mL/Hr, IV Piggyback, [id number] diphenhydrAMINE: 25 mg, Oral, Q6H, PRN: Itching [...] Oral, BID cefTRIAXone 2 Gram, IV Piggyback, [id number] citalopram 20 mg tab 40 mg 2 [...] Bioprosthetic mitral valve replacement / SNOMED CT 584390113 / Confirmed Chronic kidney disease / SNOMED CT 6715927542 / Confirmed COPD - Chronic obstructive pulmonary disease / SNOMED CT 876345464 / Confirmed History of obstructive sleep apnea / IMO [id number] / Confirmed HLD - Hyperlipidemia / SNOMED CT 649289097 / Confirmed HTN - Hypertension / SNOMED CT 8035837396 / Confirmed Canceled: Atrial fibrillation / SNOMED CT 31286203, Active Problems (25) AIHA (autoimmune hemolytic anemia) [...] 26.5 \ Radiology Results (Last 48 hours) [id number] -- 08/11/2021 21:21 CR Chest 1 Vw [...] Hold home meds SSI Depression Celexa Pain Friedens 10 mg every 6 hours as needed CODE STATUS. Full code Dispo: H/H stable, will transfuse one unit prbcs to reach goal hgb f/u trop need therapeutic inr for discharge, pharm managing Time spent 26 minutes Electronically signed by Lanny, [facility] Conversion Construction Secretary Cerner at 03/09/2023 8:51 PM CDT documented in this encounter Plan of Treatment Not on file documented as of this encounter Visit Diagnoses Not on filedocumented in this encounter Care Teams Harness Racing Handicapper Relationship Specialty Start Date End Date Reji Castro MD [address] [place] [id number] PCP - General Adolescent Medicine 10/02/22 documented as of this encounter
--- OUTSIDE RECORDS SUMMARY | 2025-06-13 13:00 | XMS_ITS | Encounter Summary ---
Author Organization [employer] ([place], [place], [place], [place]) Address [address] [place] [address] Care Team Providers Care Surg Physician Asst Name Role Phone Reji Castro MD Primary Care Provider + [phone] Encounter Details Date Type Department Care Team (Late st Contact Info) Description 08/20/2021 Transcribed Document [facility] [place] [address] ProviderDelvin MD [address] [place] [address] [phone] Social History Tobacco Use Types Packs/Day Years [...] 13:33 EDT by MADINA LOVETT RN - Machine Silk Screen PrinterColoring Checker Progress Note Discharge Arrangements : Patient Post-Acute [...] Rounds? : Yes MADINA LOVETT RN - Machine Silk Screen Printer - 08/20/2021 13:33 EDT Narrative Progress Note Narrative Progress Note : RRS Low Boost 5 Day 07/30 Patient was admitted for staph infection and port removal. She had a new port placed on 08/19. Patient needs to remain inpatient until her coumadin is at a therapeutic level per at [facility]. Patient will need IV rocephin until 09/08. Patient will need home health and says she has used [facility] in the past. CM will [...] is at a therapeutic level per at [facility]. Waiting on culture results for final abx plan. May need IV abx at home via port. Patient will need home health and lvies in [place]. [facility] is a possibility. MADINA LOVETT RN - Machine Silk Screen Printer - 08/19/21 15:40:22 RRS Low Boost 5 [...] will need home health and lives in [place]. [facility] home [facility] is a possibility. CM will continue to follow. DCP: MADINA LOVETT RN - Machine Silk Screen Printer - 08/18/21 15:47:49 (late entry from 08/15-) [...] and send referrals as appropriate. JULIO STEWART, RN-Machine Silk Screen Printer ED - 08/18/21 10:38:39 MADINA LOVETT, RN - Machine Silk Screen Printer - 08/20/2021 13:33 EDT Electronically signed by [facility] Conversion Records Supervisor Cerner at 03/09/2023 8:49 PM CDT documented in this encounter Plan of Treatment Not on file documented as of this encounter Visit Diagnoses Not on filedocumented in this encounter Care Teams Surg Physician Asst Relationship Specialty Start Date End Date Reji Castro MD [address] [place] [id number] PCP - General Adolescent Medicine 10/02/22 documented as of this encounter
--- OUTSIDE RECORDS SUMMARY | 2025-06-13 13:00 | XMS_ITS | Encounter Summary ---
Author Organization [employer] ([place], [place], [place], [place]) Address [address] [place] [address] Care Team Providers Care Digital Engineer Name Role Phone Reji Castro MD Primary Care Provider + [phone] Encounter Details Date Type Department Care Team (Late st Contact Info) Description 08/19/2021 Transcribed Document [facility] [place] [facility] [place] [address] ProviderDelvin MD [address] [place] [address] [phone] Social History Tobacco Use Types Packs/Day Years Used Date Smoking Tobacco: Never Assessed Comments Unknown Sex and Gender Information Value Date Recorded Sex Assigned at Not on file Legal Sex Female 4:32 PM CDT Gender Identity Not on file Sexual Orientation Not on file documented as of this encounter Miscellaneous Notes * [employer]ner Conversion Note - Historical ProviderMD - 08/19/2021 2:00 AM CDT Gallery Intern Details Entered On: 08/19/2021 3:57 EDT Performed [...] on filedocumented in this encounter Care Teams Digital Engineer Relationship Specialty Start Date End Date Reji Castro MD [address] [place] [id number] PCP - General Adolescent Medicine 10/02/22 documented as of this encounter
--- OUTSIDE RECORDS SUMMARY | 2025-06-13 13:00 | XMS_ITS | Encounter Summary ---
Author Organization [employer] ([place], [place], [place], [place]) Address [address] [place] [address] Care Team Providers Care Manager Roofing Name Role Phone Reji Castro MD Primary Care Provider + [phone] Encounter Details Date Type Department Care Team (Late st Contact Info) Description 08/14/2021 Transcribed Document [facility] [place] [address] [place] [address] ProviderDelvin MD [address] [place] [address] [phone] Social History Tobacco Use Types Packs/Day Years [...] Author: CHELI BEASLEY MD-CAR Basic Information Primary Dental Aide: Dr. Delmar Geronimo Event Set Up Specialist: MD Nestor Subjective NAD Health Status Current [...] mL 700 mg 14 mL, IV Piggyback, [id number] famotidine 20 mg tab 20 mg 1 [...] of motion, Normal strength. Integumentary: Warm, Dry, [place]. Neurologic: Alert, Oriented. Psychiatric: Cooperative, Appropriate mood & affect. Results Review AUG 13 23:47 L 135 102 H 35 / H 114 4.2 29 H 1.80 \ SEP 22 23:47 \ L 8.1 / 5.5 206 / L 26.9 \ Cardiac Markers (Current Encounter/Past 24 Hours) CK 87 Units/Liter 08/13/2021 05:53 ProBNP 647 pg/mL HI 08/14/2021 00:14 Radiology Results (Last 48 hours) [id number] -- 08/11/2021 21:21 CR Abdomen 1 Vw [...] mechan MV, 4+ TR, no vegetation. Admitted [facility] 07/12, Negative CHUCHO, TTE for vegetation [...] appropriate per primary hosp service & primary trimmer sawyer. Will sign-off, call if questions. RV w/ Dr. Sawyer 1 wk post DC. 08/13/21 Resume Toprol XL 25 mg QHS. Reinitiation of other HF meds as appropriate. 08/12/21 CHUCHO to assess for endocarditis & mechanical causes of hemolysis. Obtain records from [facility]. Check haptoglobin, LDH, reticulocyte count. Continue other current CV meds. documented in this encounter Plan of Treatment Not on file documented as of this encounter Visit Diagnoses Not on filedocumented in this encounter Care Teams Manager Roofing Relationship Specialty Start Date End Date Reji Castro MD [address] [place] [address] PCP - General Adolescent Medicine 10/02/22 documented as of this encounter
--- OUTSIDE RECORDS SUMMARY | 2025-06-13 13:00 | XMS_ITS | Encounter Summary ---
Author Organization [employer] ([place], [place], [place], [place]) Address [address] [place] [address] Care Team Providers Care Rubber Heel And Sole Press Tender Name Role Phone Reji Castro MD Primary Care Provider [phone] Encounter Details Date Type Department Care Team (Late st Contact Info) Description 08/19/2021 Transcribed Document [facility] Radiology [address] [place] [address] Loren Solorzano MD [address] [place] [address] [place] [address] Social History Tobacco Use Types Packs/Day Years [...] Bioprosthetic mitral valve replacement / SNOMED CT 395727339 / Confirmed Chronic kidney disease / SNOMED CT 7456984551 / Confirmed COPD - Chronic obstructive pulmonary disease / SNOMED CT 800124071 / Confirmed History of obstructive sleep apnea / IMO 75683183 / Confirmed HLD - Hyperlipidemia / SNOMED CT 683076744 / Confirmed HTN - Hypertension / SNOMED CT 7260065791 / Confirmed Canceled: Atrial fibrillation / SNOMED CT 19664701, Active Problems (25) AIHA (autoimmune hemolytic anemia) [...] hrs) Last Charted Minimum Maximum Temp 99.1 ([facility] [place] 06:30) 98 ([facility] 00:00) 99.1 ([facility] 06:30) Apical HR 87 ([facility] 20:53) 87 ([facility] 20:53) 87 ([facility] 20:53) Mon HR 81 ([facility] 06:30) 72 ([facility] [place] 21:00) 87 (AUG 18 18:17) SpO2 98 [...] data available Radiology Results (Last 48 hours) [id number] -- 08/11/2021 21:21 CR Chest 1 Vw [...] EDT, 100 mL/Hr, Indication: Other-See Comment LISA RIKCETTS MD-INF cefTRIAXone 2 Gram, IV Piggyback, Inj, [...] Hold home meds SSI #Depression Celexa #Pain [place] 10 mg every 6 hours as needed [...] on filedocumented in this encounter Care Teams Rubber Heel And Sole Press Tender Relationship Specialty Start Date End Date Reji Castro MD [address] [place] [id number] PCP - General Adolescent Medicine 10/02/22 documented as of this encounter
--- OUTSIDE RECORDS SUMMARY | 2025-06-13 13:00 | XMS_ITS | Encounter Summary ---
Author Organization [employer] ([place], [place], [place], [place]) Address [address] [place] [address] Care Team Providers Care Mumps Developer Name Role Phone Reji Castro MD Primary Care Provider + [phone] Encounter Details Date Type Department Care Team (Late st Contact Info) Description 08/20/2021 Transcribed Document [facility] [place] [address] [place] [address] ProviderDelvin MD [address] [place] [address] [phone] Social History Tobacco Use Types Packs/Day Years [...] 08/20/2021 16:48 EDT Electronically signed by Lanny [facility] Conversion Youth Corrections Officer Cerner at 03/09/2023 8:32 PM CDT documented in this encounter Plan of Treatment Not on file documented as of this encounter Visit Diagnoses Not on filedocumented in this encounter Care Teams Mumps Developer Relationship Specialty Start Date End Date Reji Castro MD [address] [place] [address] PCP - General Adolescent Medicine 10/02/22 documented as of this encounter
--- OUTSIDE RECORDS SUMMARY | 2025-06-13 13:00 | XMS_ITS | Encounter Summary ---
Author Organization [employer] ([place], [place], [place], [place]) Address [address] [place] [address] Care Team Providers Care Chiller Tender Name Role Phone Reji Castro MD Primary Care Provider + [phone] Encounter Details Date Type Department Care Team (Late st Contact Info) Description 08/12/2021 Transcribed Document [facility] [place] [address] [place] [address] ProviderDelvin MD [address] [place] [address] [phone] Social History Tobacco Use Types Packs/Day Years [...] recalling timeline of events. Discharged from [facility] approximately 3 weeks ago after [...] mmol/L (Low) 08/11/2021 17:59 EDT Sodium Ur [place] 29 mMole/Liter 08/12/2021 03:40 EDT Troponin I [...] # 0.76 K/uL (Low) 08/11/2021 17:59 EDT [place] % 9.5 % 08/12/2021 00:22 EDT [place] % 8.9 % 08/11/2021 17:59 EDT [place] # 0.64 K/uL 08/12/2021 00:22 EDT [place] # 0.61 K/uL 08/11/2021 17:59 EDT Eos [...] Appearance CLEAR2 08/11/2021 17:59 EDT Urine Specific [place] 1.007 08/11/2021 17:59 EDT Urine pH Dipstick [...] on filedocumented in this encounter Care Teams Chiller Tender Relationship Specialty Start Date End Date Reji Castro MD [address] [place] [address] PCP - General Adolescent Medicine 10/02/22 documented as of this encounter
--- OUTSIDE RECORDS SUMMARY | 2025-06-13 13:00 | XMS_ITS | Encounter Summary ---
Author Organization [employer] ([place], [place], [place], [place]) Address [address] [place] [address] Care Team Providers Care Supply Coordinator Name Role Phone Reji Castro MD Primary Care Provider + [phone] Encounter Details Date Type Department Care Team (Late st Contact Info) Description 08/19/2021 Transcribed Document [facility] [place] [facility] [place] [address] ProviderDelvin MD [address] [place] [address] [phone] Social History Tobacco Use Types Packs/Day Years [...] HPI: 56 y/o F presenting to [facility] with history of COPD, atrial fibrillation, CKD [...] cefTRIAXone: 2 Gram, 100 mL/Hr, IV Piggyback, [id number]. citalopram: 40 mg, Oral, Daily. diphenhydrAMINE: 50 [...] questions. Thank you, Andrea Moraes, PharmD PGY1 Process Control Specialist Pager: [phone], Ext. [phone] Electronically signed by Lanny, [facility] Conversion Broadcast Checker Cerner at 03/09/2023 8:43 PM CDT documented in this encounter Plan of Treatment Not on file documented as of this encounter Visit Diagnoses Not on filedocumented in this encounter Care Teams Supply Coordinator Relationship Specialty Start Date End Date Reji Castro MD [address] [place] [address] PCP - General Adolescent Medicine 10/02/22 documented as of this encounter
--- OUTSIDE RECORDS SUMMARY | 2025-06-13 13:00 | XMS_ITS | Encounter Summary ---
Author Organization [employer] ([place], [place], [place], [place]) Address [address] [place] [address] Care Team Providers Care Brace End Mainspring Former Name Role Phone Reji Castro MD Primary Care Provider + [phone] Encounter Details Date Type Department Care Team (Late st Contact Info) Description 08/14/2021 Transcribed Document [facility] [place] [facility] [place] [address] ProviderDelvin MD [address] [place] [address] [phone] Social History Tobacco Use Types Packs/Day Years Used Date Smoking Tobacco: Never Assessed Comments Unknown Sex and Gender Information Value Date Recorded Sex Assigned at Not on file Legal Sex Female 4:32 PM CDT Gender Identity Not on file Sexual Orientation Not on file documented as of this encounter Miscellaneous Notes * Cerner Conversion Note - Historical ProviderMD - 08/14/2021 2:00 AM CDT Physics And Astronomy Professor Details Entered On: 08/14/2021 6:50 EDT Performed [...] on filedocumented in this encounter Care Teams Brace End Mainspring Former Relationship Specialty Start Date End Date Reji Castro MD [address] [place] [address] PCP - General Adolescent Medicine 10/02/22 documented as of this encounter
--- OUTSIDE RECORDS SUMMARY | 2025-06-13 13:00 | XMS_ITS | Encounter Summary ---
Author Organization [employer] ([place], [place], [place], [place]) Address [address] [place] [address] Care Team Providers Care Hospital Supervisor Name Role Phone Reji Castro MD Primary Care Provider + [phone] Encounter Details Date Type Department Care Team (Late st Contact Info) Description 08/25/2021 Transcribed Document [facility] [place] [facility] [place] [address] ProviderDelvin MD [address] [place], [place] [phone] Social History Tobacco Use Types Packs/Day Years [...] Spiritual : 2 Referral Reason Comment : NEUROPSYCHIATRIST in Room 454. Ministry Provided to : Patient Spiritual/Emotional Acuity : Medium Spiritual Framework : Integrated, provides strength/resource Active in a [employer] : Yes Active in a [employer] Comment : [facility] [place]. Faith Preference : Congregation Spiritual Leader Requested : No Restoration Sacrament of the Sick/Anointing Needed : No Family Living Educator Follow-up Needed : No Rome Burgos Chaplain-Non Cert - 08/25/2021 10:13 EDT Spiritual Assessment Patient's Community/Relationship : Strength in patient's life Supportive/Healthy Relationships : Yes Supportive Faith Community : Yes Patient's Sense of Meaning [...] : Yes Spiritual Assessment Comment/Summary Points : NEUROPSYCHIATRIST. PT is experiencing significant chest pain. She was desirous of prayer, explaining her involvement with her Congregation mosque as well. One of her daugthers is a Orthopedic Surgery Nurse here at [facility]. She reported she is living in a rented house in [place] as her home in [place] [facility]. Family Living Educator provided pastoral presence, support, and prayer. Family; two daughters, two sisters, one brother, and their families. Spirital Assessment Comment/Summary Report : SPIRITUAL ASSESSMENT COMMENT/SUMMARY No qualifying data available. Rome Burgos Chaplain-Non Cert - 08/25/2021 10:13 EDT Interventions Advance Directive Information Provided : No Emotional Support : Empathic/Engaged listening, Established trust, Feelings expressed, Hope strengths identified, Meaning strengths identified, Relationship strengths identified Spiritual and Faith : Prayer shared Rome Burgos Chaplain-Non Cert - 08/25/2021 10:13 EDT Electronically signed by [facility] Conversion Patient Service Coordinator Cerner at 03/09/2023 8:33 PM CDT documented in this encounter Plan of Treatment Not on file documented as of this encounter Visit Diagnoses Not on filedocumented in this encounter Care Teams Hospital Supervisor Relationship Specialty Start Date End Date Reji Castro MD [address] [place] [address] PCP - General Adolescent Medicine 10/02/22 documented as of this encounter
--- OUTSIDE RECORDS SUMMARY | 2025-06-13 13:00 | XMS_ITS | Encounter Summary ---
Author Organization [employer] ([place], [place], [place], [place]) Address [address] [place] [address] Care Team Providers Care Aws Developer Name Role Phone Reji Castro MD Primary Care Provider + [phone] Encounter Details Date Type Department Care Team (Late st Contact Info) Description 08/25/2021 Transcribed Document [facility] [place] [facility] [place] [address] ProviderDelvin MD [address] [place], [place] [phone] Social History Tobacco Use Types Packs/Day Years [...] Patient stated she has chest pain, called UTILITIES MANAGER Team, called md. Vitals signs stable. Put zoll on patient. Stat ekg ordered, cxr and troponin. Patient transferred to [facility]. WILLIAMS HANEY RN - 08/25/2021 11:02 EDT documented in this encounter Plan of Treatment Not on file documented as of this encounter Visit Diagnoses Not on filedocumented in this encounter Care Teams Aws Developer Relationship Specialty Start Date End Date Reji Castro MD [address] [place] [address] PCP - General Adolescent Medicine 10/02/22 documented as of this encounter
--- OUTSIDE RECORDS SUMMARY | 2025-06-13 13:00 | XMS_ITS | Encounter Summary ---
Author Organization [employer] ([place], [place], [place], [place]) Address [address] [place] [address] Care Team Providers Care Top Cutter Name Role Phone Reji Castro MD Primary Care Provider + [phone] Encounter Details Date Type Department Care Team (Late st Contact Info) Description 08/14/2021 Transcribed Document [facility] [place] [facility] [place] [address] ProviderDelvin MD [address] [place] [address] [phone] Social History Tobacco Use Types Packs/Day Years [...] Warfarin HPI: 56 y/o F presenting to [facility] with history of COPD, [...] mg, 14 mL, 128 mL/Hr, IV Piggyback, [id number]. docusate-senna: 1 Tab, Oral, BID. famotidine: 20 [...] Encounter/Past 24 Hours) Creatinine Level 1.80 mg/dL [place] 08/14/2021 07:29 Bun/Creatinine 19.4 08/14/2021 00:14 Estimated [...] questions. Thank you, Andrea Moraes, PharmD PGY1 Radiation Therapist Pager: [phone], Ext. [phone] documented in this encounter Plan of Treatment Not on file documented as of this encounter Visit Diagnoses Not on filedocumented in this encounter Care Teams Top Cutter Relationship Specialty Start Date End Date Reji Castro MD [address] [place] [address] PCP - General Adolescent Medicine 10/02/22 documented as of this encounter
--- OUTSIDE RECORDS SUMMARY | 2025-06-13 13:00 | XMS_ITS | Encounter Summary ---
Author Organization [employer] ([place], [place], [place], [place]) Address [address] [place] [address] Care Team Providers Care Transit Planning Director Name Role Phone Reji Castro MD Primary Care Provider + [phone] Encounter Details Date Type Department Care Team (Late st Contact Info) Description 08/25/2021 Transcribed Document [facility] [place] [address] [place] [address] ProviderDelvin MD [address] [place], [place] 739861 Social History Tobacco Use Types Packs/Day Years [...] Event : Transfer to telemetry Rapid Response Transit Planning Director #1 : ROBERTO KOHLI RN Rapid Response Transit Planning Director #2 : ROBERTO CAMARA, TANDEM MILL STICKER ROBERTO KOHLI RN - 08/25/2021 9:33 EDT [...] Chronic kidney disease, unspecified Heart failure, unspecified intermission coordinator (current) use of anticoagulants Medical screening exam [...] 08/25/2021 9:20 EDT Electronically signed by Lanny [facility] Conversion Carpenter Form Cerner at 03/09/2023 8:33 PM CDT documented in this encounter Plan of Treatment Not on file documented as of this encounter Visit Diagnoses Not on filedocumented in this encounter Care Teams Transit Planning Director Relationship Specialty Start Date End Date Reji Castro MD [address] [place] [address] PCP - General Adolescent Medicine 10/02/22 documented as of this encounter
--- OUTSIDE RECORDS SUMMARY | 2025-06-13 13:00 | XMS_ITS | Encounter Summary ---
Author Organization [employer] ([place], [place], [place], [place]) Address [address] [place] [address] Care Team Providers Care Primary Substance Abuse Counselor Name Role Phone Reji Castro MD Primary Care Provider + [phone] Encounter Details Date Type Department Care Team (Late st Contact Info) Description 08/19/2021 Transcribed Document [facility] [place] [facility] [place] [address] ProviderDelvin MD [address] [place] [address] [phone] Social History Tobacco Use Types Packs/Day Years [...] on filedocumented in this encounter Care Teams Primary Substance Abuse Counselor Relationship Specialty Start Date End Date Reji Castro MD [address] [place] [address] PCP - General Adolescent Medicine 10/02/22 documented as of this encounter
--- OUTSIDE RECORDS SUMMARY | 2025-06-13 13:00 | XMS_ITS | Encounter Summary ---
Author Organization [employer] ([place], [place], [place], [place]) Address [address] [place] [address] Care Team Providers Care Clother In Name Role Phone Reji Castro MD Primary Care Provider + [phone] Encounter Details Date Type Department Care Team (Late st Contact Info) Description 08/19/2021 Transcribed Document [facility] [place] [facility] [place] [address] ProviderDelvin MD [address] [place] [address] [phone] Social History Tobacco Use Types Packs/Day Years [...] # 0.34 x10(3)/uL (Low) 08/19/2021 11:06 EDT [place] % 7.3 % 08/19/2021 11:06 EDT [place] # 0.79 K/uL 08/19/2021 11:06 EDT Eos [...] 08/18/2021 18:32 EDT Electronically signed by Lanny, [facility] Conversion Gypsum Roofer Cerner at 03/09/2023 8:42 PM CDT documented in this encounter Plan of Treatment Not on file documented as of this encounter Visit Diagnoses Not on filedocumented in this encounter Care Teams Clother In Relationship Specialty Start Date End Date Reji Castro MD [address] [place] [phone] PCP - General Adolescent Medicine 10/02/22 documented as of this encounter
--- OUTSIDE RECORDS SUMMARY | 2025-06-13 13:00 | XMS_ITS | Encounter Summary ---
Author Organization [employer] ([place], [place], [place], [place]) Address [address] [place] [address] Care Team Providers Care Critical Care Physician Name Role Phone Reji Castro MD Primary Care Provider + [phone] Encounter Details Date Type Department Care Team (Late st Contact Info) Description 08/19/2021 Transcribed Document [facility] [place] [address] [place] [address] ProviderDelvin MD [address] [place] [address] [phone] Social History Tobacco Use Types Packs/Day Years [...] on filedocumented in this encounter Care Teams Critical Care Physician Relationship Specialty Start Date End Date Reji Castro MD [address] [place] [id number] PCP - General Adolescent Medicine 10/02/22 documented as of this encounter
--- OUTSIDE RECORDS SUMMARY | 2025-06-13 13:00 | XMS_ITS | Encounter Summary ---
Author Organization [employer] ([place], [place], [place], [place]) Address [address] [place] [address] Care Team Providers Care Physician In Private Practice Name Role Phone Reji Saldaña MD Primary Care Provider + [phone] Encounter Details Date Type Department Care Team (Late st Contact Info) Description 08/14/2021 Transcribed Document [facility] [place] [facility] [place] [address] ProviderDelvin MD [address] [place] [address] [phone] Social History Tobacco Use Types Packs/Day Years [...] On: 08/14/2021 16:00 EDT by ALFREDO SEQUEIRA, JEREMIAH-Crown Assembly Machine Set Up Mechanic Initial Assessment I Previously Documented Living Environment : No qualifying data available. Living Situation : Home Patient Lives With : Alone Is the Patient a Caregiver at Home? : No Emergency Contact #1 : Urszula De La Garza Emergency Contact #1 Emergency Contact #1 Relationship : Daughter Emergency Contact #2 : Mariann Elif Emergency Contact #2 Emergency Contact #2 Relationship : Daughter Enter Doctors Name : demetrice saldaña Does Patient have PCP Listed? : Yes Patient's Home Caregiver Name/Relationship : Urszula De La Garza Patient's Home Caregiver Medical Durable Power of Senior C Web Developer Name : No Legal Guardian : No ALFREDO SEQUEIRA RN-Crown Assembly Machine Set Up Mechanic - 08/15/2021 8:27 EDT Initial Assessment II Sensory and Motor Deficits : None Current Home Treatments and Equipment : None ALFREDO SEQUEIRA RN-Crown Assembly Machine Set Up Mechanic - 08/15/2021 8:27 EDT Discharge Needs I Anticipated Discharge Date : 08/16/2021 EDT Anticipated Discharge To, CM : Home with home health, Home with infusion therapy Current Home Treatment/Equipment : Current Home Treatment/Equipment No qualifying data available. Post Acute/Home Treatments : None Documentation Status Complete : Yes ALFREDO SEQUEIRA RN-Crown Assembly Machine Set Up Mechanic - 08/15/2021 8:27 EDT Discharge Needs II Professional Skilled Services : Professional Skilled Services No qualifying data available. Needs Assistance with Transportation : No Discharge Options Discussed with Patient : DME, Home Health, Short term rehabilitation ALFREDO SEQUEIRA RN-Crown Assembly Machine Set Up Mechanic - 08/15/2021 8:27 EDT Narrative Note Historical Narrative Note : rrs low boost 5 patient was admitted for staph infection /port removal . consults to neph, surg,ID. CHUCHO negative . patient 56 years old lives alone and is independent. patient face sheet address is wrong now address is : [address] [employer] . [employer]. patient denied need for dme. possible need for hh she thinks [facility] is the only one in her area. patient states she might need 4 weeks IV abx . patient is agreeable to hh and iv abx at home . cm will follow ALFREDO SEQUEIRA RN-Crown Assembly Machine Set Up Mechanic - 08/15/21 08:39:27 Narrative Note : rrs low boost 5 patient was admitted for staph infection /port removal . consults to neph, surg,ID. CHUCHO negative . patient 56 years old lives alone and is independent. patient face sheet address is wrong now address is : [address] [employer]. patient denied need for dme. possible need for hh she thinks [facility] is the only one in her area. patient states she might need 4 weeks IV abx . patient is agreeable to hh and iv abx at home . family will transport . cm will follow ALFREDO SEQUEIRA, RN-Crown Assembly Machine Set Up Mechanic - 08/15/2021 8:40 EDT Electronically signed by Lanny [facility] Conversion Gis Analyst Developer Cerner at 03/09/2023 8:51 PM CDT documented in this encounter Plan of Treatment Not on file documented as of this encounter Visit Diagnoses Not on filedocumented in this encounter Care Teams Physician In Private Practice Relationship Specialty Start Date End Date Reji Saldaña MD [address] [place] [address] PCP - General Adolescent Medicine 10/02/22 documented as of this encounter
--- OUTSIDE RECORDS SUMMARY | 2025-06-13 13:00 | XMS_ITS | Encounter Summary ---
Author Organization [employer] ([place], [place], [place], [place]) Address [address] [place] [address] Care Team Providers Care Program Mgr Name Role Phone Reji Castro MD Primary Care Provider + [phone] Encounter Details Date Type Department Care Team (Late st Contact Info) Description 08/25/2021 Transcribed Document [facility] [place] [facility] [place] [address] ProviderDelvin MD [address] [place] [phone] Social History Tobacco Use Types Packs/Day Years [...] cefTRIAXone: 2 Gram, 100 mL/Hr, IV Piggyback, [id number]. citalopram: 40 mg, Oral, Daily. diphenhydrAMINE: 25 [...] floor. Thank you, Andrea Moraes, PharmD PGY1 Paunch Trimmer Pager: [phone], Ext. [phone] Electronically signed by Lanny [facility] Conversion Window Covering Sales Consultant Cerner at 03/09/2023 8:52 PM CDT documented in this encounter Plan of Treatment Not on file documented as of this encounter Visit Diagnoses Not on filedocumented in this encounter Care Teams Program Mgr Relationship Specialty Start Date End Date Reji Castro MD [address] [place] [id number] PCP - General Adolescent Medicine 10/02/22 documented as of this encounter
--- OUTSIDE RECORDS SUMMARY | 2025-06-13 13:00 | XMS_ITS | Encounter Summary ---
Author Organization [employer] ([place], [place], [place], [place]) Address [address] [place] [address] Care Team Providers Care Screen Tender Name Role Phone Reji Castro MD Primary Care Provider + [phone] Encounter Details Date Type Department Care Team (Late st Contact Info) Description 08/14/2021 Transcribed Document [facility] [place] [address] [place] [address] ProviderDelvin MD [address] [place] [address] [phone] Social History Tobacco Use Types Packs/Day Years [...] back to her room in stable condition. /[id number] MD GERMAINE Pollard/TONYA / DOTTIE / DARIL /[id number] Electronically signed by Lanny, [facility] Conversion Pricer Cerner at 03/09/2023 8:43 PM CDT documented in this encounter Plan of Treatment Not on file documented as of this encounter Visit Diagnoses Not on filedocumented in this encounter Care Teams Screen Tender Relationship Specialty Start Date End Date Reji Castro MD [address] [place] [id number] PCP - General Adolescent Medicine 10/02/22 documented as of this encounter
--- OUTSIDE RECORDS SUMMARY | 2025-06-13 13:00 | XMS_ITS | Encounter Summary ---
Author Organization [employer] ([place], [place], [place], [place]) Address [address] [place] [address] Care Team Providers Care Remarketing Manager Name Role Phone Reji Castro MD Primary Care Provider [phone] Encounter Details Date Type Department Care Team (Late st Contact Info) Description 08/17/2021 Transcribed Document [facility] Radiology 1 [place] [address] Loren Solorzano MD [address] [place] [address] [place] [address] Social History Tobacco Use Types Packs/Day Years [...] mg, 14 mL, 128 mL/Hr, IV Piggyback, [id number] Dextrose 50% injection: 12.5 Gram, IV Push, [...] mL 700 mg 14 mL, IV Piggyback, [id number] famotidine 20 mg tab 20 mg 1 [...] Bioprosthetic mitral valve replacement / SNOMED CT 344956367 / Confirmed Chronic kidney disease / SNOMED CT 8880176605 / Confirmed COPD - Chronic obstructive pulmonary disease / SNOMED CT 893861824 / Confirmed History of obstructive sleep apnea / IMO 87801078 / Confirmed HLD - Hyperlipidemia / SNOMED CT 143270579 / Confirmed HTN - Hypertension / SNOMED CT 5171503348 / Confirmed Canceled: Atrial fibrillation / SNOMED CT 20053664, Active Problems (25) AIHA (autoimmune hemolytic anemia) [...] Hold home meds SSI #Depression Celexa #Pain [place] 10 mg every 6 hours as needed [...] on filedocumented in this encounter Care Teams Remarketing Manager Relationship Specialty Start Date End Date Reji Castro MD [address] [place] [address] PCP - General Adolescent Medicine 10/02/22 documented as of this encounter
--- OUTSIDE RECORDS SUMMARY | 2025-06-13 13:01 | XMS_ITS | Encounter Summary ---
Author Organization [employer] ([place], [place], [place], [place]) Address [address] [place] [address] Care Team Providers Care Business Account Leader Name Role Phone Reji Castro MD Primary Care Provider + [phone] Encounter Details Date Type Department Care Team (Late st Contact Info) Description 08/16/2021 Transcribed Document [facility] [place] [facility] [place] [address] ProviderDelvin MD [address] [place] [address] [phone] Social History Tobacco Use Types Packs/Day Years [...] HPI: 56 y/[facility] F [facility], atrial fibrillation, [...] mg, 14 mL, 128 mL/Hr, IV Piggyback, [id number]. diphenhydrAMINE: 25 mg, Oral, Q6H, PRN: Itching. [...] questions. Thank you, Andrea Moraes, PharmD PGY1 Automobile Rental Representative Pager: [phone], Ext. [phone] documented in this encounter Plan of Treatment Not on file documented as of this encounter Visit Diagnoses Not on filedocumented in this encounter Care Teams Business Account Leader Relationship Specialty Start Date End Date Reji Castro MD [address] [place] [address] PCP - General Adolescent Medicine 10/02/22 documented as of this encounter
--- OUTSIDE RECORDS SUMMARY | 2025-06-13 13:01 | XMS_ITS | Encounter Summary ---
Author Organization [employer] ([place], [place], [place], [place]) Address [address] [place] [address] Care Team Providers Care Rn Progressive Care Name Role Phone Reji Castro MD Primary Care Provider + [phone] Encounter Details Date Type Department Care Team (Late st Contact Info) Description 08/21/2021 Transcribed Document [facility] [place] [facility] [place] [address] ProviderDelvin MD [address] [place] [address] [phone] Social History Tobacco Use Types Packs/Day Years [...] cefTRIAXone: 2 Gram, 100 mL/Hr, IV Piggyback, [id number] diphenhydrAMINE: 25 mg, Oral, Q6H, PRN: Itching [...] Oral, BID cefTRIAXone 2 Gram, IV Piggyback, V66SWqa citalopram 20 mg tab 40 mg 2 [...] History of obstructive sleep apnea / IMO 41483284 / Confirmed Bioprosthetic mitral valve replacement / SNOMED CT 591672748 / Confirmed Chronic kidney disease / SNOMED CT 6468043983 / Confirmed COPD - Chronic obstructive pulmonary disease / SNOMED CT 344818136 / Confirmed HTN - Hypertension / SNOMED CT 7541626205 / Confirmed HLD - Hyperlipidemia / SNOMED CT 702839146 / Confirmed Amblyopia / SNOMED CT 7750499184 / Confirmed 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 / SNOMED CT 094411691 / Confirmed Myocardial infarction / SNOMED CT 49347448 / Confirmed Atrial fibrillation / SNOMED CT 63763997 / Confirmed GERD - Gastro-esophageal reflux disease / SNOMED CT 1241429756 / Confirmed Diverticulosis / SNOMED CT 2500993333 / Confirmed Hepatomegaly / SNOMED CT 835644539 / Confirmed Renal calculus / SNOMED CT 490404960 / Confirmed Ovarian cyst / SNOMED CT 649435482 / Confirmed Arthritis / SNOMED CT 4045884 / Confirmed Back pain / PNED [id number] / Confirmed Fibromyalgia / SNOMED CT 73542699 / Confirmed Restless legs syndrome / SNOMED CT 50005104 / Confirmed Diabetes mellitus type II / SNOMED CT 65624359 / Confirmed Thyroid disease / SNOMED CT 351056267 / Confirmed Edema / SNOMED CT 628647489 / Confirmed BLE neuropathy hands and feet / Confirmed frequent headache / Confirmed AIHA (autoimmune hemolytic anemia) / SNOMED CT 4099451204 / Confirmed Resolved: Bronchitis / SNOMED CT 14272076 Resolved: Bowel obstruction / SNOMED CT 039148512 Canceled: Atrial fibrillation / SNOMED CT 86707846 Canceled: Lazy eye / SNOMED CT 118787387 lazy eye blindness (left eye) Canceled: Heart failure / SNOMED CT 775483952 Canceled: Heart valve / SNOMED CT 845009935 Canceled: High blood pressure / SNOMED CT 20664700 Canceled: Hyperlipidemia / SNOMED CT 17869504 Canceled: Cardiac arrhythmia / SNOMED CT 6863091175 Canceled: COPD / SNOMED CT 77897860 Canceled: Diabetes mellitus / SNOMED CT 460571232 Canceled: Anemia, iron deficiency / SNOMED CT 981721372, Active Problems (25) AIHA (autoimmune hemolytic anemia) [...] EDT Height Source Stated Height Entry Format [place] Height/Length, YORUBA (ft) 5 ft Height/Length YORUBA 4 Inch CLINICALHEIGHT 162.56 cm Routine Weight Source Standing scale Routine Weight Entry Format [place] Routine Weight, Pounds 204 lb Routine Weight, [...] filedocumented in this encounter Care Teams Rn Progressive Care Relationship Specialty Start Date End Date Reji Castro MD [address] [place] [address] PCP - General Adolescent Medicine 10/02/22 documented as of this encounter
--- OUTSIDE RECORDS SUMMARY | 2025-06-13 13:01 | XMS_ITS | Encounter Summary ---
Author Organization [employer] ([place], [place], [place], [place]) Address [address] [place] [address] Care Team Providers Care Stitch Burnisher Name Role Phone Reji Castro MD Primary Care Provider + [phone] Encounter Details Date Type Department Care Team (Late st Contact Info) Description 08/11/2021 Transcribed Document [facility] [place] Family Medicine [address] [place] [address] ProviderDelvin MD [address] [place] [address] [phone] Social History Tobacco Use Types Packs/Day Years [...] Performed On: 08/12/2021 9:05 EDT by Celina Wlider RN Phone Call for Consults Consult Phone [...] 08/12/2021 9:31 EDT Electronically signed by Lanny [facility] Conversion Handbag Operator Cerner at 03/09/2023 9:00 PM CDT documented in this encounter Plan of Treatment Not on file documented as of this encounter Visit Diagnoses Not on filedocumented in this encounter Care Teams Stitch Burnisher Relationship Specialty Start Date End Date Reji Castro MD [address] [place] [address] PCP - General Adolescent Medicine 10/02/22 documented as of this encounter
--- OUTSIDE RECORDS SUMMARY | 2025-06-13 13:01 | XMS_ITS | Encounter Summary ---
Author Organization [employer] ([place], [place], [place], [place]) Address [address] [place] [address] Care Team Providers Care Engraver Signature Name Role Phone Reji Castro MD Primary Care Provider + [phone] Encounter Details Date Type Department Care Team (Late st Contact Info) Description 08/22/2021 Transcribed Document [facility] [place] [facility] [place] [address] ProviderDelvin MD [address] [place] [address] [phone] Social History Tobacco Use Types Packs/Day Years [...] cefTRIAXone: 2 Gram, 100 mL/Hr, IV Piggyback, B38NSyb diphenhydrAMINE: 25 mg, Oral, Q6H, PRN: Itching [...] Oral, BID cefTRIAXone 2 Gram, IV Piggyback, W10ZIkg citalopram 20 mg tab 40 mg 2 [...] Bioprosthetic mitral valve replacement / SNOMED CT 476300267 / Confirmed Chronic kidney disease / SNOMED CT 1631089890 / Confirmed COPD - Chronic obstructive pulmonary disease / SNOMED CT 784894289 / Confirmed History of obstructive sleep apnea / IMO 68273771 / Confirmed HLD - Hyperlipidemia / SNOMED CT 473782022 / Confirmed HTN - Hypertension / SNOMED CT 3591470129 / Confirmed Canceled: Atrial fibrillation / SNOMED CT 47082778, Active Problems (25) AIHA (autoimmune hemolytic anemia) [...] Monitor GFR adjust medications. Electronically signed by [facility], [facility] Conversion Lead Software Qa Engineer Cerner at 03/09/2023 8:43 PM CDT documented in this encounter Plan of Treatment Not on file documented as of this encounter Visit Diagnoses Not on filedocumented in this encounter Care Teams Engraver Signature Relationship Specialty Start Date End Date Reji Castro MD [address] [place] [address] PCP - General Adolescent Medicine 10/02/22 documented as of this encounter
--- OUTSIDE RECORDS SUMMARY | 2025-06-13 13:01 | XMS_ITS | Encounter Summary ---
Author Organization [employer] ([place], [place], [place], [place]) Address [address] [place] [address] Care Team Providers Care Solution Engineer Name Role Phone Reji Castro MD Primary Care Provider + [phone] Encounter Details Date Type Department Care Team (Late st Contact Info) Description 08/16/2021 Transcribed Document [facility] [place] [facility] [place] [address] ProviderDelvin MD [address] [place] [address] [phone] Social History Tobacco Use Types Packs/Day Years [...] mL - 700 mg, IV Piggyback, Inj, N98QHzu, infuse over 30 Minute(s), Routine Cardiovascular metoprolol [...] [facility] [place] 20:32) Mon HR 81 (AUG 16 10:50) 67 ([facility] [place] 14:52) 85 ([facility] 18:00) Resp Rate 18 (AUG 16 10:50) 14 ([facility] [place] [...] [facility] [place] 10:50) L 92 (SEP 24 14:52) 99 [...] on filedocumented in this encounter Care Teams Solution Engineer Relationship Specialty Start Date End Date Reji Castro MD [address] [place] [address] PCP - General Adolescent Medicine 10/02/22 documented as of this encounter
--- OUTSIDE RECORDS SUMMARY | 2025-06-13 13:01 | XMS_ITS | Encounter Summary ---
Author Organization [employer] ([place], [place], [place], [place]) Address [address] [place] [address] Care Team Providers Care Director Statistical Programming Name Role Phone Reji Castro MD Primary Care Provider + [phone] Encounter Details Date Type Department Care Team (Late st Contact Info) Description 08/21/2021 Transcribed Document [facility] [place] Family Medicine [address] [place] [address] ProviderDelvin MD [address] [place] [address] [phone] Social History Tobacco Use Types Packs/Day Years [...] 08/21/2021 18:33 EDT Electronically signed by Lanny [facility] Conversion Central Office Equipment Engineer Cerner at 03/09/2023 8:36 PM CDT documented in this encounter Plan of Treatment Not on file documented as of this encounter Visit Diagnoses Not on filedocumented in this encounter Care Teams Director Statistical Programming Relationship Specialty Start Date End Date Reji Castro MD [address] [place] [address] PCP - General Adolescent Medicine 10/02/22 documented as of this encounter
--- OUTSIDE RECORDS SUMMARY | 2025-06-13 13:01 | XMS_ITS | Encounter Summary ---
Author Organization [employer] ([place], [place], [place], [place]) Address [address] [place] [address] Care Team Providers Care Steam Shovel Engineer Name Role Phone Reji Castro MD Primary Care Provider [phone] Encounter Details Date Type Department Care Team (Late st Contact Info) Description 08/21/2021 Transcribed Document [facility] Radiology [address] [place] [address] Loren Solorzano MD [address] [place] [address] [place] [address] Social History Tobacco Use Types Packs/Day Years [...] cefTRIAXone: 2 Gram, 100 mL/Hr, IV Piggyback, T33WQoo diphenhydrAMINE: 25 mg, Oral, Q6H, PRN: Itching [...] Oral, BID cefTRIAXone 2 Gram, IV Piggyback, H13VOjg citalopram 20 mg tab 40 mg 2 [...] Bioprosthetic mitral valve replacement / SNOMED CT 442990632 / Confirmed Chronic kidney disease / SNOMED CT 4145500837 / Confirmed COPD - Chronic obstructive pulmonary disease / SNOMED CT 116693587 / Confirmed History of obstructive sleep apnea / IMO 85066278 / Confirmed HLD - Hyperlipidemia / SNOMED CT 527136371 / Confirmed HTN - Hypertension / SNOMED CT 5951255329 / Confirmed Canceled: Atrial fibrillation / SNOMED CT 56648279, Active Problems (25) AIHA (autoimmune hemolytic anemia) [...] 21 06:00) 97.6 (AUG 21 06:00) 98 ([facility] [place] 11:00) Apical HR 70 (AUG 20 20:27) 70 (AUG 20 20:27) 70 ([facility] [place] 20:27) Mon HR 61 (AUG 21 06:00) 61 (AUG 21 06:00) 89 ([facility] 11:00) Resp Rate 15 (AUG 21 06:00) 15 (AUG 21 06:00) 18 (AUG 20 11:00) SBP 101 (AUG 21 06:00) 95 (AUG 20 23:30) 127 ([facility] 11:00) DBP 68 (AUG 21 06:00) L 50 (AUG 20 15:00) 80 ([facility] 11:00) MAP 78 (AUG 21 06:00) 63 [...] Hold home meds SSI #Depression Celexa #Pain [place] 10 mg every 6 hours as needed Dispo: Given patient with history of multiple transfusion we will keep patient in the hospital on heparin drip and Coumadin till INR therapeutic need IV abx, at least until 09/08. Discussed with trimming caser. and pharmcy Time spent 25 minutes documented in this encounter Plan of Treatment Not on file documented as of this encounter Visit Diagnoses Not on filedocumented in this encounter Care Teams Steam Shovel Engineer Relationship Specialty Start Date End Date Reji Castro MD [address] [place] [id number] PCP - General Adolescent Medicine 10/02/22 documented as of this encounter
--- OUTSIDE RECORDS SUMMARY | 2025-06-13 13:01 | XMS_ITS | Encounter Summary ---
Author Organization [employer] ([place], [place], [place], [place]) Address [address] [place] [address] Care Team Providers Care Dining Room Host/Hostess Name Role Phone eRji Castro MD Primary Care Provider + [phone] Encounter Details Date Type Department Care Team (Late st Contact Info) Description 08/16/2021 Transcribed Document [facility] [place] [facility] [place] [address] ProviderDelvin MD [address] [place] [address] [phone] Social History Tobacco Use Types Packs/Day Years [...] in this encounter Care Teams Dining Room Host/Hostess Relationship Specialty Start Date End Date Reji Castro MD [address] [place] [address] PCP - General Adolescent Medicine 10/02/22 documented as of this encounter
--- OUTSIDE RECORDS SUMMARY | 2025-06-13 13:01 | XMS_ITS | Encounter Summary ---
Author Organization [employer] ([place], [place], [place], [place]) Address [address] [place] [address] Care Team Providers Care Children'S Ministry Director Name Role Phone Reji Castro MD Primary Care Provider + [phone] Encounter Details Date Type Department Care Team (Late st Contact Info) Description 08/12/2021 Transcribed Document [facility] [place] [facility] [place] [address] ProviderDelvin MD [address] [place] [address] [phone] Social History Tobacco Use Types Packs/Day Years [...] On: 08/12/2021 8:46 EDT by TAWNYA AVILES, CARDIAC CATHETERIZATION TECHNICIAN Bronchodilator Assessment Score, RT Pulmonary History, Bronchodilator [...] Bronchodilator Assessment Score : 3 TAWNYA AVILES CARDIAC CATHETERIZATION TECHNICIAN - 08/12/2021 8:46 EDT Electronically signed by Lanny, [facility] Conversion Room Inspector Cerner at 03/09/2023 8:59 PM CDT documented in this encounter Plan of Treatment Not on file documented as of this encounter Visit Diagnoses Not on filedocumented in this encounter Care Teams Children'S Ministry Director Relationship Specialty Start Date End Date Reji Castro MD [address] [place] [address] PCP - General Adolescent Medicine 10/02/22 documented as of this encounter
--- OUTSIDE RECORDS SUMMARY | 2025-06-13 13:01 | XMS_ITS | Encounter Summary ---
Author Organization [employer] ([place], [place], [place], [place]) Address [address] [place] [address] Care Team Providers Care Retail Special Event Associate Name Role Phone Reji Castro MD Primary Care Provider + [phone] Encounter Details Date Type Department Care Team (Late st Contact Info) Description 08/22/2021 Transcribed Document [facility] [place] [facility] [place] [address] ProviderDelvin MD [address] [place] [address] [phone] Social History Tobacco Use Types Packs/Day Years Used Date Smoking Tobacco: Never Assessed Comments Unknown Sex and Gender Information Value Date Recorded Sex Assigned at Not on file Legal Sex Female 4:32 PM CDT Gender Identity Not on file Sexual Orientation Not on file documented as of this encounter Miscellaneous Notes * [employer]ner Conversion Note - Historical ProviderMD - 08/22/2021 2:00 AM CDT Help Desk Engineer Details Entered On: 08/22/2021 4:12 EDT [...] filedocumented in this encounter Care Teams Retail Special Event Associate Relationship Specialty Start Date End Date Reji Castro MD [address] [place] [address] PCP - General Adolescent Medicine 10/02/22 documented as of this encounter
--- OUTSIDE RECORDS SUMMARY | 2025-06-13 13:01 | XMS_ITS | Encounter Summary ---
Author Organization [employer] ([place], [place], [place], [place]) Address [address] [place] [address] Care Team Providers Care Reaming Machine Operator For Plastic Name Role Phone Reji Castro MD Primary Care Provider + [phone] Encounter Details Date Type Department Care Team (Late st Contact Info) Description 08/21/2021 Transcribed Document [facility] [place] [address] [place] [address] ProviderDelvin MD [address] [place] [address] [phone] Social History Tobacco Use Types Packs/Day Years [...] 15:08 EDT by MADINA LOVETT RN - Senior Software Test EngineerService Learning Coordinator Progress Note Discharge Arrangements : Patient [...] : Yes MADINA LOVETT RN - Senior Software Test Engineer - 08/21/2021 15:08 EDT Narrative Progress Note Narrative Progress Note : RRS Low Boost 5 Day 08/29 Patient was admitted for staph infection and port removal. She had a new port placed on 08/19. Patient needs to remain inpatient until her coumadin is at therapeutic level per MD in [facility]. Patient will need IV rocephin until 09/08. CM faxed the order to Urszula with [facility]. CM also faxed order for home health to [facility] which the patient states she has used [...] a therapeutic level per at [facility]. Patient will need IV rocephin until 09/08. Patient will need home health and says she has used [facility] in the past. CM will refer her to them after final antibiotic order is placed. DCP: home with home health MADINA LOVETT RN - Senior Software Test Engineer - 08/20/21 13:35:46 RRS Low Boost 5 Day 05/26 Patient was admitted for staph infection and port removal. She had a new port done on . 08/19. Patient needs to remain inpatient after surgery until her coumadin is at a therapeutic level per at [facility]. Waiting on culture results for final abx plan. May need IV abx at home via port. Patient will need home health and lvies in [place]. [facility] home health is a possibility. MADINA LOVETT RN - Senior Software Test Engineer - 08/19/21 15:40:22 RRS Low Boost [...] will need home health and lives in [place]. [facility] home [facility] is a possibility. CM will continue to follow. DCP: MADINA LOVETT, RN - Senior Software Test Engineer - 08/18/21 15:47:49 (late entry from [...] and send referrals as appropriate. JULIO STEWART, RN-Senior Software Test Engineer ED - 08/18/21 10:38:39 MADINA LOVETT, JEREMIAH - Senior Software Test Engineer - 08/21/2021 15:08 EDT Electronically signed by Lanny [facility] Conversion Health Policy Analyst Cerner at 03/09/2023 8:32 PM CDT documented in this encounter Plan of Treatment Not on file documented as of this encounter Visit Diagnoses Not on filedocumented in this encounter Care Teams Reaming Machine Operator For Plastic Relationship Specialty Start Date End Date Reji Castro MD [address] [place] [address] PCP - General Adolescent Medicine 10/02/22 documented as of this encounter
--- OUTSIDE RECORDS SUMMARY | 2025-06-13 13:01 | XMS_ITS | Encounter Summary ---
Author Organization Healthcare Address [address] [place] [address] Care Team Providers Care Hearing Healthcare Practitioner Name Role Phone Anna Marie Savage MD Primary Care Provider [phone] Reji Castro MD Primary Care Provider [phone] Encounter Details Date Type Department Care Team (Late Contact Info) Description 07/09/2023 Orders Only External Location [address] [place] [address] Karen Benson MD [address] [place] [address] Social History Tobacco Use Types Packs/Day Years [...] Description 06/25/2025 1:40 PM EDT Office Visit [facility] [place], [facility] Mineral Metabolism [address] [facility], [address] [place] [address] 06/26/2025 10:30 AM EDT Appointment Cardiac Imaging [address] [place] [address] 06/26/2025 1:00 PM EDT Appointment [facility] Radiology [address] [place] [address] documented as of this encounter Procedures Procedure [...] documented as of this encounter Care Teams Hearing Healthcare Practitioner Relationship Specialty Start Date End Date Anna Marie Savage MD [address] [place] [address] PCP - General 04/04/21 12/07/23 Reji Castro MD [facility] [address] [place] [address] PCP - General Internal Medicine 12/08/23 documented as of this encounter
--- OUTSIDE RECORDS SUMMARY | 2025-06-13 13:01 | XMS_ITS | Encounter Summary ---
Author Organization [employer] ([place], [place], [place], [place]) Address [address] [place] [address] Care Team Providers Care Patient Observer Name Role Phone Reji Castro MD Primary Care Provider + [phone] Encounter Details Date Type Department Care Team (Late st Contact Info) Description 08/11/2021 Transcribed Document [facility] [place] [facility] [place] [place] [address] ProviderDelvin MD [address] [place] [address] [phone] Social History Tobacco Use Types Packs/Day Years [...] you, Noy Garrett, PharmD PGY-1 Resident Pager #[phone] Electronically signed by Lanny, [facility] Conversion Subassemblies Wirer Cerner at 03/09/2023 8:57 PM CDT documented in this encounter Plan of Treatment Not on file documented as of this encounter Visit Diagnoses Not on filedocumented in this encounter Care Teams Patient Observer Relationship Specialty Start Date End Date Reji Castro MD [address] [place] [address] PCP - General Adolescent Medicine 10/02/22 documented as of this encounter
--- OUTSIDE RECORDS SUMMARY | 2025-06-13 13:01 | XMS_ITS | Encounter Summary ---
Author Organization [employer] ([place], [place], [place]) Address [address] [place] [address] Care Team Providers Care Bagel Maker Name Role Phone Reji Castro MD Primary Care Provider + [phone] Encounter Details Date Type Department Care Team (Late st Contact Info) Description 08/12/2021 Transcribed Document [facility] [place] [address] [place] [address] ProviderDelvin MD [address] [place] [address] [id number] Social History Tobacco Use Types Packs/Day Years [...] on filedocumented in this encounter Care Teams Bagel Maker Relationship Specialty Start Date End Date Reji Castro MD [address] [place] [address] PCP - General Adolescent Medicine 10/02/22 documented as of this encounter
--- OUTSIDE RECORDS SUMMARY | 2025-06-13 13:01 | XMS_ITS | Encounter Summary ---
Author Organization [employer] ([place], [place], [place]) Address [address] [place] [address] Care Team Providers Care Military Administrative Technician Name Role Phone Reji Castro MD Primary Care Provider + [phone] Encounter Details Date Type Department Care Team (Late st Contact Info) Description 08/22/2021 Transcribed Document [facility] [place] Medicine [facility] [place] [address] ProviderDelvin MD [address] [place] [address] [id number] Social History Tobacco Use Types Packs/Day Years [...] 15:27 EDT by MADINA LOVETT RN - Health Outcomes LiaisonProject Eng Progress Note Discharge Arrangements : Patient Post-Acute [...] Rounds? : Yes MADINA LOVETT RN - Health Outcomes Liaison - 08/22/2021 15:27 EDT Narrative Progress Note [...] also faxed order for home health to [facility] which the patient states she has used before. Patient will probably not be ready for discharge until early next week per MDR. DCP: home with home health MADINA LOVETT RN - Health Outcomes Liaison - 08/21/21 15:11:24 RRS Low Boost 5 Day 07/30 Patient was admitted for staph infection and port removal. She had a new port placed on 08/19. Patient needs to remain inpatient until her coumadin is at a therapeutic level per at [facility]. Patient will need IV rocephin until 09/08. Patient will need home health and says she has used [facility] in the past. CM will refer her to them after final antibiotic order is placed. DCP: home with home health MADINA LOVETT RN - Health Outcomes Liaison - 08/20/21 13:35:46 RRS Low Boost 5 [...] will need home health and lvies in [place]. [facility] is a possibility. MADINA LOVETT RN - Health Outcomes Liaison - 08/19/21 15:40:22 RRS Low Boost 5 [...] will need home health and lives in [place]. [facility] is a possibility. CM will continue to follow. DCP: MADINA LOVETT RN - Health Outcomes Liaison - 08/18/21 15:47:49 (late entry from 08/15-) [...] and send referrals as appropriate. JULIO STEWART, RN-Health Outcomes Liaison ED - 08/18/21 10:38:39 MADINA LOVETT, JEREMIAH - Health Outcomes Liaison - 08/22/2021 15:27 EDT documented in this encounter Plan of Treatment Not on file documented as of this encounter Visit Diagnoses Not on filedocumented in this encounter Care Teams Military Administrative Technician Relationship Specialty Start Date End Date Reji Castro MD [address] [place] [address] PCP - General Adolescent Medicine 10/02/22 documented as of this encounter
--- OUTSIDE RECORDS SUMMARY | 2025-06-13 13:01 | XMS_ITS | Encounter Summary ---
Author Organization [employer] ([place], [place], [place], [place]) Address [address] [place] [address] Care Team Providers Care Parts Sales Manager Name Role Phone Reji Castro MD Primary Care Provider + [phone] Encounter Details Date Type Department Care Team (Late st Contact Info) Description 08/21/2021 Transcribed Document [facility] [place] [facility] [place] [address] ProviderDelvin MD [address] [place] [address] [id number] Social History Tobacco Use Types Packs/Day Years Used Date Smoking Tobacco: Never Assessed Comments Unknown Sex and Gender Information Value Date Recorded Sex Assigned at Not on file Legal Sex Female 4:32 PM CDT Gender Identity Not on file Sexual Orientation Not on file documented as of this encounter Miscellaneous Notes * Cerner Conversion Note - Delvin Ceelstin MD - 08/21/2021 11:18 AM CDT Patient: [...] cefTRIAXone: 2 Gram, 100 mL/Hr, IV Piggyback, [id number]. citalopram: 40 mg, Oral, Daily. diphenhydrAMINE: 50 [...] questions. Thank you, Andrea Moraes, PharmD PGY1 Physicist [employer] Pager: [phone], Ext. [phone] documented in this encounter Plan of Treatment Not on file documented as of this encounter Visit Diagnoses Not on filedocumented in this encounter Care Teams Parts Sales Manager Relationship Specialty Start Date End Date Reji Castro MD [address] [place] [id number] PCP - General Adolescent Medicine 10/02/22 documented as of this encounter
--- OUTSIDE RECORDS SUMMARY | 2025-06-13 13:01 | XMS_ITS | Encounter Summary ---
Author Organization [employer] ([place], [place], [place], [place]) Address [address] [place] [address] Care Team Providers Care Gas Compressor Turbine Operator Name Role Phone Reji Castro MD Primary Care Provider [phone] Encounter Details Date Type Department Care Team (Late st Contact Info) Description 08/16/2021 Transcribed Document [facility] Radiology [address] [place] [address] Loren Solorzano MD [address] [place] [address] [place] [address] Social History Tobacco Use Types Packs/Day Years [...] mg, 14 mL, 128 mL/Hr, IV Piggyback, [id number] Dextrose 50% injection: 12.5 Gram, IV Push, [...] mL 700 mg 14 mL, IV Piggyback, [id number] famotidine 20 mg tab 20 mg 1 [...] Bioprosthetic mitral valve replacement / SNOMED CT 686210416 / Confirmed Chronic kidney disease / SNOMED CT 7094616071 / Confirmed COPD - Chronic obstructive pulmonary disease / SNOMED CT 912324235 / Confirmed History of obstructive sleep apnea / IMO 69928615 / Confirmed HLD - Hyperlipidemia / SNOMED CT 138274331 / Confirmed HTN - Hypertension / SNOMED CT 7853561046 / Confirmed Canceled: Atrial fibrillation / SNOMED CT 07047106, Active Problems (25) AIHA (autoimmune hemolytic anemia) [...] Last Charted Minimum Maximum Temp 98 ([facility] 10:50) 97.6 ([facility] 06:00) 98 ([facility] 18:00) Apical HR 76 ([facility] 20:32) 76 ([facility] 20:32) 76 ([facility] 20:32) Mon HR 81 ([facility] 10:50) 67 ([facility] 14:52) 85 ([facility] 18:00) Resp Rate 18 ([facility] 10:50) 14 ([facility] 23:00) 19 ([facility] 18:00) SBP 112 ([facility] 10:50) 95 ([facility] 14:52) 114 ([facility] 23:00) DBP 60 ([facility] 10:50) L 45 ([facility] 14:52) 63 ([facility] 18:00) MAP 74 ([facility] 10:50) 63 ([facility] 23:00) 83 ([facility] 18:00) SpO2 97 ([facility] 10:50) L 92 ([facility] 14:52) 99 ([facility] 03:39) General: Alert and oriented, [...] EDT BIN HERNANDEZ, DO-INT Discontinued Medications: acetaminophen-hydrocodone ([place] 10 mg-325 mg oral tablet) 1 Tab, [...] Hold home meds SSI #Depression Celexa #Pain [place] 10 mg every 6 hours as needed [...] filedocumented in this encounter Care Teams Gas Compressor Turbine Operator Relationship Specialty Start Date End Date Reji Castro MD [address] [place] [id number] PCP - General Adolescent Medicine 10/02/22 documented as of this encounter
--- OUTSIDE RECORDS SUMMARY | 2025-06-13 13:01 | XMS_ITS | Encounter Summary ---
Author Organization [employer] ([place], [place], [place], [place]) Address [address] [place] [address] Care Team Providers Care Daub Color Mixer Name Role Phone Reji Castro MD Primary Care Provider + [phone] Encounter Details Date Type Department Care Team (Late st Contact Info) Description 08/12/2021 Transcribed Document [facility] [place] [address] ProviderDelvin MD [address] [place] [address] [phone] Social History Tobacco Use Types Packs/Day Years [...] Health Plan: [employer] Policy Number: [id number] Authorization Number: Insurance 2 Health Plan: [place] Policy Number: [id number] Authorization Number: Insurance Primary Name : [employer] Policy Number: [id number] Authorization Status-Primary : Awaiting callback Reference Number-Primary : Pend ref #[id number] Authorized Service Begin Date-Primary : 08/11/2021 EDT Authorization Comments-Primary : Pend ref no per Availity, reviewer has access to [facility] Historical Authorization Comments-Primary : No Authorization Comments Found JORGE VALLES, RN - 08/12/2021 14:07 EDT documented in this encounter Plan of Treatment Not on file documented as of this encounter Visit Diagnoses Not on filedocumented in this encounter Care Teams Daub Color Mixer Relationship Specialty Start Date End Date Reji Castro MD [address] [place] [id number] PCP - General Adolescent Medicine 10/02/22 documented as of this encounter
--- OUTSIDE RECORDS SUMMARY | 2025-06-13 13:01 | XMS_ITS | Encounter Summary ---
Author Organization [employer] ([place], [place], [place], [place]) Address [address] [place] [address] Care Team Providers Care Sack Sewer Machine Name Role Phone Reji Castro MD Primary Care Provider [phone] Reason for Referral * Ultrasound (Routine) - Closed Specialty Diagnoses / Procedures Referred By Contac t Referred To Contact Diagnoses Acute renal failure, unspecified acute renal failure type (HCC) Procedures Ultrasound head neck soft tissue Marion Umana MD Phone: tel: fax: Referral ID Status Reason Start Date Expiration Date Visits Re quested Visits Authorized [id number] Closed 09/28/2022 03/27/2023 1 1 Encounter Details Date Type Department Care Team (Late st Contact Info) Description 09/28/2022 Outside Orders [facility] Central Scheduling [address] [place] [address] Marion Umana MD [facility] [address] [place] [address] Acute renal failure, unspecified acute renal failure [...] Primary documented in this encounter Care Teams Sack Sewer Machine Relationship Specialty Start Date End Date Reji Castro MD [address] [place], [place] [address] PCP - General Adolescent Medicine 10/02/22 documented as of this encounter
--- OUTSIDE RECORDS SUMMARY | 2025-06-13 13:01 | XMS_ITS | Encounter Summary ---
Author Organization [employer] ([place], [place], [place], [place]) Address [address] [place] [address] Care Team Providers Care Depalletizer Operator Name Role Phone Reji Castro MD Primary Care Provider [phone] Reason for Referral * Nuclear Medicine (Routine) - Closed Specialty Diagnoses / Procedures Referred By Contac t Referred To Contact Diagnoses Stage 3 chronic kidney disease, unspecified whether stage 3a or 3b CKD (HCC) Procedures NM parathyroid scan planar only Marion Umana MD Phone: tel: fax: Referral ID Status Reason Start Date Expiration Date Visits Re quested Visits Authorized [id number] Closed 10/02/2022 03/31/2023 1 1 Encounter Details Date Type Department Care Team (Late st Contact Info) Description 10/02/2022 Outside Orders [facility] Central Scheduling [address] [place] [address] Marion Umana MD [address] [facility] [address] [place] [address] Stage 3 chronic kidney disease, unspecified whether [...] (HCC) documented in this encounter Care Teams Depalletizer Operator Relationship Specialty Start Date End Date Reji Castro MD [address] [place] [id number] PCP - General Adolescent Medicine 10/02/22 documented as of this encounter
--- OUTSIDE RECORDS SUMMARY | 2025-06-13 13:01 | XMS_ITS | Data Portability ---
Author Organization [place] - [place] - [place] & DAMIÁN Granados ADMIN Address [address] [place] [address] Care Team Providers Care City Controller Name Role Phone WESTON TOVAR Primary Care Provider [phone] NINOSKA MOSER Hat Lining Blocker NAFISA LE Primary Care Provider Assessment Encounter [...] Plan - Oncologist got CT 10/27 at [place]. Will get records. - Schedule Pill Cam - Will refer to Dr. Lopez at [facility] for EGD and Colonoscopy d/t iron [...] - discussed PillCam findings with Jade Moser PAPER PRODUCTS MACHINE OPERATOR an updated her on Dr. Betancur's recommendation for PUSH procedure - reviewed findings with patient - EGD/colonoscopy scheduled with Dr. Lopez at [facility] as it is closer to her [...] upper endoscopy procedure (EGD) (PROC) 2024 025 [facility] (Central Scheduling), [address] [place] [address] [place], [address], 5 11:06:05 colonoscop y procedure (PROC) 2024 [facility] [address] [place] [address] [place], [address], 08:49:52 Surgeries None recorded. Imaging None recorded. Medication Orders Miralax 17 gram/dose oral powder 2024 [email or web address] [facility], [address] [place], [address], 5 11:55:43 Dulcolax (bisacodyl ) 5 mg tablet,del ayed release 2024 [email or web address] [facility], [address] [place], [address], 11:55:43 Patient TargetsNo targets recorded. Patient Instructions Encounter Date Encounter Id Patient Instructions Last Modified By Organization Details Last Modified Time 10/11/2024 [id number] Patient benefits from CPAP with resolution of fatigue, witnessed apneas and snores. She is compliant with CPAP. She is on auto CPAP in a range of 4-20 cm. Continue CPAP each and every night full sleep cycle. Weight loss. Patient is compliant with CPAP with an apnea plus hypopnea index of 0.7. RTC in one year. [email or web address] Not available 10/11/2024 10:48:47 Reason for Referral None Reported. Results Created Date Observation Date Name Description Value Unit Range Abnormal Flag Note LastModifiedBy Organization Detail LastModifiedTime 01/25/2001/24/2025 HEMAT OCRIT + HEMOG LOBIN HGB 7.2 g/dL 12.0-1 5.7 critical low Not Available [facility] (Lab Registration) [address] [place], [address], 01/24/2025 14:45:05 01/25/20 25 01/24/2025 HEMAT OCRIT + HEMOG LOBIN HCT 25.5 % 36.0-4 7.0 low Not Available [facility] (Lab Registration) [address] [place], [address], 01/24/2025 14:45:05 01/25/20 25 01/24/2025 HEMAT OCRIT + HEMOG LOBIN note Unles s other chen noted testi ng perfo rmed at: [facility] [address] [place] [address] [phone] Bo cisneros MD CLIA: [id number] Not Available [facility] (Lab Registration) [address] , [place], [address], 01/24/2025 14:45:05 10/05/20 24 08/23/2024 bariu dao teixeira ow study No observ ation record ed. [email or web address] [place] [address], [place], [address], 11/17/2024 10:19:10 11/17/20 24 11/17/2024 RF, small bowel follo w-thr ough study No observ ation record ed. [facility] [address], [place], [address], 12/06/2024 11:06:36 01/08/20 25 capsu le endos copy (PROC ) No observ ation record ed. [email or web address] Not Available 2024 09:08:22 Result Notes None recorded. Problems Name Problem SNOMED Code Status Onset Date Resolution Date Notes Provider Name and Address Organization Details Recorded Time Obstructive sleep apnea syndrome 42005716 Active 2022 Farhan Bae MD [address] [facility] [address], [place], [address], [place] - [place] - [place] & [place] 3 10:26:00 Iron deficiency anemia 09600770 Active 2024 Ninoska Moser NP [address], [address], [place], [address], [place] & [place] 5 10:47:25 Chronic idiopathic constipation 28799644 Active 2024 Ninoska Moser NP [address], [address], [place], [address], [place] & [place] 5 10:54:45 Gastro-esophag eal reflux disease with esophagitis 922885726 Active 2024 Ninoska Moser NP [address], [address], [place], [address] [place] - [place] [facility] & [place] 5 10:54:45 Problem Notes None recorded. Procedures Surgical History Date Name Laterality Status Provider Name and Address Organization Details Recorded Time 01/25 esophagogastroduodenoscopy completed Maye Card [place] - [place] & [place] 5 17:05:17 01/25 Colonoscopy completed Maye Card [place] & [place] 5 17:05:26 01/31 completed Shanice [place] & [place] 5 09:52:06 07/31 Date of Last Colonoscopy completed Kimberl y Ezekiel [place] & [place] 5 09:52:06 ligation of fallopian tube completed Crystal [place]wine [place] & [place] 3 10:12:53 Imaging Results None recorded. Procedure Notes None recorded. Medical Equipment None Reported. Allergies Allergen ID Allergen Name Allergen Category Reaction Reaction Severity Criticality Documentation Date Start Date Code Code System Note Provider Name and Address Organization Details Recorded Time 69235 Buprenex medicatio n Not available Not available Not available 12/18/2022 51535 0 RxNorm Crystal [place] null, [place] - [place] - [place] & [place] 3 10:08:00 23795 codeine medicatio n Not available Not available Not available 12/18/2022 2670 RxNorm Crystal [place] null, [place] & [place] 3 10:08:06 57915 Levaquin medicatio n Not available Not available Not available 12/18/2022 24651 2 RxNorm Crystal [place] null, [place] & [place] 3 10:08:13 95071 Rocephin medicatio n Not available Not available Not available 12/18/2022 9449 RxNorm [place] Moreno [facility] & [place] 3 10:08:19 79073 Iodinated contrast media (substanc e) medicatio n Not available Not available Not available 12/18/2022 62357 2004 SNOMED [place]ZA Moreno [facility] & [place] 3 10:08:26 Medications Name Sig Start Date [...] No t Available FreeStyle [place] 14 Day [place] USE DIRECTED active Not Available Not Available [...] Updated DateTime 5 162.56 cm 32.5 kg/m2 22726.3 9 g 97.9 [degF] 90 % 90 % 80 /min 77 /min 100/69 mm[Hg] Hannah COBB - LPNT [facility] & [place] 5 13:04:38 Date Recorded Body height Body mass index (BMI) Body weight Body temperature Oxygen saturation Oxygen saturation in Arterial blood by Pulse oximetry Heart rate Provider Name and Address Organization Details Last Updated DateTime 5 162.56 cm 32.2 kg/m2 97198.2 1 g 97.8 [degF] 90 % 90 % 85 /min Shanice [place]BB - [place] [facility] & [place] 5 09:51:59 Date Recorded Body height Provider Name an d Address Organization Details Last Updated DateTime 01/23/2025 162.56 cm NAFISA LE NP [address] [facility], [place], [address], [place] LP[facility] & [place] 01/23/2025 15:38:59 Date Recorded Heart rate Provider Name an d Address Organization Details Last Updated DateTime 10/11/2024 71 /min Farhan gao MD [address] [facility],[address], [place], [address], [place] LP[facility] & [place] 10/11/2024 10:47:19 Date Recorded Body height Body mass index (BMI) Body weight Oxygen saturation Oxygen saturation in Arterial blood by Pulse oximetry Respiratory rate Systolic And Diastolic Provider Name and Address Organization Details Last Updated DateTime 4 162.56 cm 32.8 kg/m2 36020.4 2 g 97 % 97 % 12 /min 118/78 mm[Hg] Malini COBB - LPNT [facility] & [place] 4 10:42:15 Social History Question Answer Notes LastModified by Organizat ion Details LastModified Time Tobacco Smoking Status Former Smoker 1/2 PPD 30 years Malini gonzalez, [place] - LP[facility] & [place] 12/18/2022 10:12:37 Do You Have An Advance [...] Cancer N Kidney Stones N Hyperthyroidism N Lung Disease Y Hypothyroidism Y Depression Y COPD Y Clotting Disorder Y Diverticulitis/Diverticulosis Y Anxiety [...] null, [place] & [place] 10/11/2024 10:42:50 meningococcal B, OMV 9 completed Crystal [place] null, [place] 10/11/2024 10:42:50 Influenza, recombinant, quadrivalent, PF 1 completed Crystal [place] null, [place] 10/11/2024 10:42:50 COVID-19, mRNA, LNP-S, PF, 100 mcg/0.5mL dose or 50 mcg/0.25mL dose 1 completed Crystal [place] null, [place] 10/11/2024 10:42:50 COVID-19, mRNA, LNP-S, PF, 100 mcg/0.5mL dose or 50 mcg/0.25mL dose 1 completed Crystal [place] null, [place] & [place] 10/11/2024 10:42:50 pneumococcal polysaccharide PPV23 9 completed Crystal [place] null, [place] 10/11/2024 10:42:50 Tdap 3 completed Crystal [place] null, [place] 10/11/2024 10:42:50 Pneumococcal conjugate PCV 13 9 completed Crystal [place], [place] 10/11/2024 10:42:50 Hib (PRP-T) 9 completed Crystal [place] null, [place] 10/11/2024 10:42:50 Meningococcal MCV4O 9 completed Crystal [place] null, [place] 10/11/2024 10:42:50 Meningococcal MCV4O 9 completed Crystal [place] null, [place] 10/11/2024 10:42:50 Influenza, split virus, quadrivalent, PF 0 completed Crystal [place] null, [place] 10/11/2024 10:42:50 Influenza, split virus, quadrivalent, PF 9 completed Crystal [place] null, [place] 10/11/2024 10:42:50 Influenza, split virus, quadrivalent, PF 7 completed Malini [facility] [place] & [place] 10/11/2024 10:42:50 Past Encounters Encounter ID Performer Location Encounter Start Date Encounter Closed Date Diagnosis/Indication Diagnosis SNOMED-CT Code Diagnosis ICD10 Code Diagnosis Note [id number] MD [facility] [address] [place] [address] DR MCCORD [address] [place] [address] 12/18/2022 09:57:02 12/18/2022 10:09:54 Obstructive sleep apnea syndrome 77101312 G47.33 [id number] MD [facility] [address] [place] [address] [place] [address] 10/11/2024 10:32:12 10/11/2024 10:47:15 Obstructive sleep apnea syndrome 16537162 G47.33 [id number] NAFISA LE NP [facility] [address] [address] 10/06/2024 09:54:50 10/06/2024 10:56:04 Gastroesophageal reflux disease 425533375 K21.9 Iron defic iency anemia 54924289 D50.9 History of blood transfusion 414436446 Z92.89 Chronic ki dney disease stage 3 265796733 N18.30 Fatigue 99946563 R53.83 Chronic id iopathic constipation 09904576 K59.04 [id number] NAFISA LE NP [facility] [address] [address] 11/29/2024 12:15:00 11/29/2024 13:42:06 Gastroesophageal reflux disease 770623745 K21.9 - continue Dexilant 60 mg Iron defic iency anemia 52620867 D50.9 - refer to [place] for EGD and colonoscop y History of blood transfusion 008608084 Z92.89 - small bowel follow through reviewed- Schedule Pill Cam Chronic ki dney disease stage 3 861907927 N18.30 Fatigue 11895564 R53.83 Chronic id iopathic constipation 77156993 K59.04 - trial Linzess [id number] Trey Lopez M.D [facility] [address] [place] [address] 01/03/2025 08:58:20 01/03/2025 10:18:02 Iron deficiency anemia 23925437 D50.9 Ongoing for many years. She follows [...] colonoscop y estimated 10 years ago in [place] which were negative. She continues to follow with Cardiology , Dr. Pendleton. Recommend EGD/colono scopy to further evaluate after cardiac clearance, Dr. Pendleton, has been obtained as she is prescribed Warfarin. Will obtain recent labs to review. Gastro-eso phageal reflux disease with esophagitis 399108459 K21.00 Controlled with use of Dexilant. Chronic id iopathic constipation 68048662 K59.04 Currently prescribed Miralax, Linzess 72 mcg, and Dulcolax for treatment. [id number] NAFISA LE NP [facility] [address] [address] 01/23/2025 15:34:39 01/23/2025 15:56:32 Gastroesophageal reflux disease 167516159 K21.9 - continue Dexilant 60 mg Iron defic iency anemia 56426636 D50.9 History of blood transfusion 874790235 Z92.89 Chronic ki dney disease stage 3 078162822 N18.30 Fatigue 10682061 R53.83 Chronic id iopathic constipation 83218464 K59.04 Health Concerns Section Related Observation LastModified by Organization Detai ls LastModified Time None Recorded Concern Status LastModified by Organization Details LastModified Time None Recorded Advance Directives Directive N: Payers Insurance Date Sequence Insurance Name Policy Number Policy Edwards Covered Member ID Edwards Member ID Guarantor Name 01/31/2025 1 [facility] - DUAL ELIGIBLE (MEDICARE REPLACEMENT/AD VANTAGE - HMO) [id number] Irina A Costa [id number] Irina A Costa 01/23/2025 1 [place] H[place] [id number] Irina A Costa [id number] Irina A Costa 10/11/2024 1 [place] [id number] Irina A Costa [id number] Irina A Costa 10/11/2024 1 [id number] Irina Yeison Costa [id number] Irina A Costa 10/11/2024 2 [place]/TRADITIONA L Irina A Costa [id number] Irina A Costa 03/14/2025 2 [place]TRADITIONA L Irina A Costa [id number] Irina A Costa 01/23/2025 1 [id number] Irina Yeison Costa [id number] Irina A Costa 01/23/2025 1 [employer] (MEDICARE REPLACEMENT/AD VANTAGE - PPO) Irina A Costa [id number] Irina A Costa 10/11/2024 2 [place] Irina A Costa [id number] Riina A Costa 10/11/2024 2 [employer] (PPO) Irina A Costa [id number] Irina Costa Notes Date Note Type Note [...] neurologic complaints today.Modified Wells criteria of 0. Champion of 2.She voices no sleep-related or CPAP related issues.Patient is compliant with CPAP with an apnea plus hypopnea index of 0.7. Patient had a sleep study that revealed an apnea plus hypopnea index of 29, she spent 86% of the night above 90% saturation, lowest saturation recorded was 76%. She follows with Dr. Sawyer and a industrial designer. Patient was again instructed to follow-up her [...] interactions with all of the prescribed and fkvn-exy-awrwlyh medications with a pharmacist, the patient again voiced understanding. The patient was instructed to go to ER if the patient does not improve or worsens, she again voiced understanding. Farhan Bae MD [address] [facility],[address], [place], [address], [place] & [place] 10/11/2024 10:49:13 11/29/2024 text/html PREVIOUS: Mrs. Natalie [...] all her comorbidities. Patient currently lives in [place] as well which is a far distance. She reports no symptoms except for worsening GERD and fatigue. CURRENT: Ms. Costa is here for follow up. She had her small bowel follow through and needs to have her pill cam. She is on weekly labs through her oncologist. Recent labs showed hemoglobin down to 7.0. She received 1st of 3 iron transfusion at [facility] today. She is scheduled for blood transfusion [...] bowel prep. Admission through the ED at [facility] would be 1 option. However patient is open to EGD/colonoscopy with Dr. Lopez in [place] since it is closer. NAFISA EL NP [address], [place], [address], [facility] 11/29/2024 13:55:56 01/03/2025 text/html 59 year [...] and colonoscopy estimated 10 years ago in [place] which were negative. She denies melena or BRBPR. She continues to follow with Cardiology, Dr. Pendleton. Ninoska Moser, CHUCK [address] [facility], [address], [place], [address], [facility] 01/05/2025 12:06:47 01/23/2025 text/html PREVIOUS: Mrs. [...] all her comorbidities. Patient currently lives in [place] as well which is a far distance. She reports no symptoms except for worsening GERD and fatigue. PREVIOUS: Ms. Costa is here for follow up. She had her small bowel follow through and needs to have her pill cam. She is on weekly labs through her oncologist. Recent labs showed hemoglobin down to 7.0. She received 1st of 3 iron transfusion at [facility] today. She is scheduled for blood transfusion [...] bowel prep. Admission through the ED at [facility] would be 1 option. However patient is open to EGD/colonoscopy with Dr. Lopez in [place] since it is closer. CURRENT: Mrs. Costa is attends via [employer] today for follow up after pill cam. [...] on Audio and Video visit performed utilizing [employer] HIPAA compliant platform. Participants: patient and provider. Locations of each: Patient is at their home in [place], Provider is at the office in [place], [place]. Verbal consent was obtained before the start of the appointment obtained. NAFISA LE NP [address], [place], [address], [place] 01/23/2025 16:28:33 OBGyn Episode No OBEpisode recorded.
--- OUTSIDE RECORDS SUMMARY | 2025-06-13 13:01 | XMS_ITS | Encounter Summary ---
Author Organization [employer] ([place], [place], [place], [place]) Address [address] [place] [address] Care Team Providers Care Component Technician Name Role Phone Reji Castro MD Primary Care Provider + [phone] Encounter Details Date Type Department Care Team (Late st Contact Info) Description 08/21/2021 Transcribed Document [facility] [place] [facility] [place] [address] ProviderDelvin MD [address] [place] [address] Social History Tobacco Use Types Packs/Day Years Used Date Smoking Tobacco: Never Assessed Comments Unknown Sex and Gender Information Value Date Recorded Sex Assigned at Not on file Legal Sex Female 4:32 PM CDT Gender Identity Not on file Sexual Orientation Not on file documented as of this encounter Miscellaneous Notes * Cerner Conversion Note - Historical ProviderMD - 08/21/2021 2:00 AM CDT Music Education Adjunct Professor Details Entered On: 08/21/2021 6:32 EDT Performed [...] on filedocumented in this encounter Care Teams Component Technician Relationship Specialty Start Date End Date Reji Castro MD [address] [place] [address] [place] [address] PCP - General Adolescent Medicine 10/02/22 documented as of this encounter
--- OUTSIDE RECORDS SUMMARY | 2025-06-13 13:01 | XMS_ITS | Encounter Summary ---
Author Organization [employer] ([place], [place], [place], [place]) Address [address] [place] [address] Care Team Providers Care Log Handling Equipment Operator Name Role Phone Reji Castro MD Primary Care Provider + [phone] Encounter Details Date Type Department Care Team (Late st Contact Info) Description 08/15/2021 Transcribed Document [facility] [place] [facility] [place] [address] ProviderDelvin MD [address] [place] [address] Social History Tobacco Use Types Packs/Day [...] Historical ProviderMD - 08/15/2021 2:00 AM CDT Audit Senior Associate Details Entered On: 08/15/2021 1:25 EDT [...] filedocumented in this encounter Care Teams Log Handling Equipment Operator Relationship Specialty Start Date End Date Reji Castro MD [address] [place] [address] [place] [address] PCP - General Adolescent Medicine 10/02/22 documented as of this encounter
--- OUTSIDE RECORDS SUMMARY | 2025-06-13 13:01 | XMS_ITS | Encounter Summary ---
Author Organization [employer] ([place], [place], [place], [place]) Address [address] [place] [address] Care Team Providers Care Prescription Clerk Lenses Name Role Phone Reji Castro MD Primary Care Provider + [phone] Encounter Details Date Type Department Care Team (Late st Contact Info) Description 08/15/2021 Transcribed Document [facility] [place] [facility] [place] [address] ProviderDelvin MD [address] [place] [id number] Social History Tobacco Use Types Packs/Day Years [...] on filedocumented in this encounter Care Teams Prescription Clerk Lenses Relationship Specialty Start Date End Date Reji Castro MD [address] [place] [address] PCP - General Adolescent Medicine 10/02/22 documented as of this encounter
--- OUTSIDE RECORDS SUMMARY | 2025-06-13 13:01 | XMS_ITS | Encounter Summary ---
Author Organization [employer] ([place], [place], [place], [place]) Address [address] [place] [address] Care Team Providers Care Outsole Handler Name Role Phone Reji Castro MD Primary Care Provider + [phone] Encounter Details Date Type Department Care Team (Late st Contact Info) Description 08/11/2021 Transcribed Document [facility] [place] [address] ProviderDelvin MD [address] [place] [id number] Social History Tobacco Use Types Packs/Day Years Used Date Smoking Tobacco: Never Assessed Comments Unknown Sex and Gender Information Value Date Recorded Sex Assigned at Not on file Legal Sex Female 4:32 PM CDT Gender Identity Not on file Sexual Orientation Not on file documented as of this encounter Miscellaneous Notes * Cerner Conversion Note - Historical ProviderMD - 08/11/2021 4:16 PM CDT Switchback Suicide Severity Rating Scale (C-SSRS) Entered On: 08/11/2021 18:49 EDT Performed On: 08/11/2021 18:46 EDT by MARIPOSA JACQUES RN Switchback Suicide Severity Rating Scale (C-SSRS) CSSRS Past [...] on filedocumented in this encounter Care Teams Outsole Handler Relationship Specialty Start Date End Date Reji Castro MD [address] [place] [address] PCP - General Adolescent Medicine 10/02/22 documented as of this encounter
--- OUTSIDE RECORDS SUMMARY | 2025-06-13 13:01 | XMS_ITS | Encounter Summary ---
Author Organization [employer] ([place], [place], [place], [place]) Address [address] [place] [address] Care Team Providers Care Job Coach Name Role Phone Reji Castro MD Primary Care Provider + [phone] Encounter Details Date Type Department Care Team (Late st Contact Info) Description 08/21/2021 Transcribed Document [facility] [place] [address] [place] [address] ProviderDelvin MD [address] [place] [id number] Social History Tobacco Use Types Packs/Day Years [...] filedocumented in this encounter Care Teams Job Coach Relationship Specialty Start Date End Date Reji Castro MD [address] [place] [address] PCP - General Adolescent Medicine 10/02/22 documented as of this encounter
--- OUTSIDE RECORDS SUMMARY | 2025-06-13 13:01 | XMS_ITS | Encounter Summary ---
Author Organization [employer] ([place], [place], [place], [place]) Address [address] [place] [address] Care Team Providers Care Microsoft Solutions Architect Name Role Phone Reji Castro MD Primary Care Provider + [phone] Encounter Details Date Type Department Care Team (Late st Contact Info) Description 08/12/2021 Transcribed Document [facility] [place] [facility] [place] [address] ProviderDelvin MD [address] [place] [address] [phone] Social History Tobacco Use Types Packs/Day Years [...] Author: CHELI BEASLEY MD-CAR Basic Information Primary Clinical Documentation Spec: Dr. Delmar Geronimo Ui Architect: MD Nestor Chief Complaint Rule out endocarditis/h.o [...] She followed up that week with her Design Painter, Dr. Thapa, who aspirated purulence from the port. 10-15 min later, she was driving home and developed fever 103, chills, headache and body aches. Presented to [facility] where she was admitted [...] ID evaluation. She presented for evaluation at [facility]. In the ER she was found to [...] Instructions Problem list: All Problems Amblyopia / 9636506278 / Confirmed Arthritis / 7097365 / Confirmed Atrial fibrillation / 40771843 / Confirmed AIHA (autoimmune hemolytic anemia) / 9598359413 / Confirmed Back pain / [id number] / Confirmed Bowel obstruction / 618356555 / Confirmed Bronchitis / 04002802 / Confirmed Cardiac arrhythmia / 5340933938 / Confirmed Cardiomyopathy / 007974922 / Confirmed COPD / 49088250 / Confirmed Diabetes mellitus / 888767209 / Confirmed Diabetes mellitus type II / 75114628 / Confirmed Diverticulosis / 8162638851 / Confirmed Edema / 968351589 / Confirmed Fibromyalgia / 35170925 / Confirmed frequent headache / Confirmed GERD - Gastro-esophageal reflux disease / 1687664664 / Confirmed Heart failure / 558890844 / Confirmed Heart valve / 955269123 / Confirmed Hepatomegaly / 861107173 / Confirmed High blood pressure / 34194786 / Confirmed History of obstructive sleep apnea / 30972215 / Confirmed Hyperlipidemia / 02918706 / Confirmed Anemia, iron deficiency / 315119422 / Confirmed 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 Social & Psychosocial Habits Tobacco 12/18/2013 Tobacco Use Within Last Twelve Months No Smoking Status Former smoker Years of Tobacco Use 30 Month Tobacco Last Used quit 2005 Past Medical History: Active Atrial fibrillation (94988366) Bioprosthetic mitral valve replacement (293938463) Chronic kidney disease (1952050656) COPD - Chronic obstructive pulmonary disease (439718208) HLD - Hyperlipidemia (504318007) HTN - Hypertension (6399385460) Family History: Reviewed. Non-contributory. Procedure history: Replacement, mitral valve, with cardiopulmonary bypass (44786) on 01/19/2006 at 40 Years. left jaw pin. sternotomy. hernia repair, abdominal. sigmoid colon resection. Tendon sheath incision (eg, for trigger finger) (27722). jaw surgery, left. great toe surger, left. [...] of motion, Normal strength. Integumentary: Warm, Dry, [place]. Neurologic: Alert, Oriented. Psychiatric: Cooperative, Appropriate mood & affect. Review / Management AUG 12 00:22 L 134 L 98 H 69 / H 134 3.6 29 H 2.40 \ AUG 12 00:22 \ L 8.7 / 6.7 201 / L 28.3 \ Cardiac Markers (Current Encounter/Past 24 Hours) ProBNP 766 pg/mL SC 08/12/2021 01:12 Blood Gases (Current Encounter/Past 24 Hours) No Blood Gas Results Found (Past 24 Hours) Radiology Results (Last 48 hours) [id number] -- 08/11/2021 21:21 CR Chest 1 Vw [...] admission for coagulase negative staph bacteremia Admitted [facility] 07/12, Negative CHUCHO, TTE for [...] mechanical causes of hemolysis. Obtain records from [facility]. Check haptoglobin, LDH, reticulocyte count. Continue other current CV meds. Electronically signed by Lanny, [facility] Conversion Residential Door Unit Installer Cerner at 03/09/2023 8:33 PM CDT documented in this encounter Plan of Treatment Not on file documented as of this encounter Visit Diagnoses Not on filedocumented in this encounter Care Teams Microsoft Solutions Architect Relationship Specialty Start Date End Date Reji Castro MD [address] [place] [address] PCP - General Adolescent Medicine 10/02/22 documented as of this encounter
--- OUTSIDE RECORDS SUMMARY | 2025-06-13 13:01 | XMS_ITS | Encounter Summary ---
Author Organization [employer] ([place], [place], [place], [place]) Address [address] [place] [address] Care Team Providers Care Home Improvement Installer Name Role Phone Reji Castro MD Primary Care Provider + [phone] Encounter Details Date Type Department Care Team (Late st Contact Info) Description 08/16/2021 Transcribed Document [facility] [place] [facility] [place] [address] ProviderDelvin MD [address] [place] [address] [phone] Social History Tobacco Use Types Packs/Day Years [...] Diabetes mellitus type II E11.9 6. terminal gauger current use of anticoagulant Z79.01 At risk for central venous catheter associated infection Z91.89 Chronic kidney disease N18.9 Medical screening exam [id number] Medications Inpatient acetaminophen, 650 mg= 2 Tab, [...] penicillins propafenone theophylline Electronically signed by Lanny, [facility] Conversion Cured Meats Supervisor Cerner at 03/09/2023 8:52 PM CDT documented in this encounter Plan of Treatment Not on file documented as of this encounter Visit Diagnoses Not on filedocumented in this encounter Care Teams Home Improvement Installer Relationship Specialty Start Date End Date Reji Castro MD [address] [place] [address] PCP - General Adolescent Medicine 10/02/22 documented as of this encounter
--- OUTSIDE RECORDS SUMMARY | 2025-06-13 13:01 | XMS_ITS | Encounter Summary ---
Author Organization [employer] ([place], [place], [place], [place]) Address [address] [place] [address] Care Team Providers Care Clinical Trial Coordinator Name Role Phone Reji Castro MD Primary Care Provider + [phone] Encounter Details Date Type Department Care Team (Late st Contact Info) Description 08/22/2021 Transcribed Document [facility] [place] Family Medicine [address] [place] [address] ProviderDelvin MD [address] [place] [address] [phone] Social History Tobacco Use Types Packs/Day [...] filedocumented in this encounter Care Teams Clinical Trial Coordinator Relationship Specialty Start Date End Date Reji Castro MD [address] [place] [address] PCP - General Adolescent Medicine 10/02/22 documented as of this encounter
--- OUTSIDE RECORDS SUMMARY | 2025-06-13 13:01 | XMS_ITS | Encounter Summary ---
Author Organization [employer] ([place], [place], [place], [place]) Address [address] [place] [address] Care Team Providers Care Owner/Photographer Name Role Phone Reji Castro MD Primary Care Provider + [phone] Encounter Details Date Type Department Care Team (Late st Contact Info) Description 08/12/2021 Transcribed Document [facility] [place] [facility] [place] [address] ProviderDelvin MD [address] [place] [address] [phone] Social History Tobacco Use Types Packs/Day Years [...] on filedocumented in this encounter Care Teams Owner/Photographer Relationship Specialty Start Date End Date Reji Castro MD [address] [place] [address] PCP - General Adolescent Medicine 10/02/22 documented as of this encounter
--- OUTSIDE RECORDS SUMMARY | 2025-06-13 13:01 | XMS_ITS | Encounter Summary ---
Author Organization [employer] ([place], [place], [place], [place]) Address [address] [place] [address] Care Team Providers Care Replacer Name Role Phone Reji Castro MD Primary Care Provider + [phone] Encounter Details Date Type Department Care Team (Late st Contact Info) Description 08/22/2021 Transcribed Document [facility] [place] [facility] [place] [address] ProviderDelvin MD [address] [place], [place] [phone] Social History Tobacco Use Types Packs/Day Years [...] 08/22/2021 8:20 EDT by Lamar Sheppard Diet Traveling Accountant Nutrition Assessment Nutrition Assessment Reason : Other: LOS Lamar Sheppard Diet Traveling Accountant - 08/22/2021 8:20 EDT Nutrition Recommendations Dietitian [...] reported. No nutrition dx at this time. can technician to rescreen in 7-10 days. Lamar Sheppard, Diet Traveling Accountant - 08/22/2021 12:04 EDT documented in this encounter Plan of Treatment Not on file documented as of this encounter Visit Diagnoses Not on filedocumented in this encounter Care Teams Replacer Relationship Specialty Start Date End Date Reji Castro MD [address] [place] [address] PCP - General Adolescent Medicine 10/02/22 documented as of this encounter
--- OUTSIDE RECORDS SUMMARY | 2025-06-13 13:01 | XMS_ITS | Encounter Summary ---
Author Organization [employer] ([place], [place], [place], [place]) Address [address] [place] [address] Care Team Providers Care Gripper Installer Name Role Phone Reji Castro MD Primary Care Provider + [phone] Encounter Details Date Type Department Care Team (Late st Contact Info) Description 08/16/2021 Transcribed Document [facility] [place] [facility] [place] [address] ProviderDelvin MD [address] [place] [address] [phone] Social History Tobacco Use Types Packs/Day Years [...] Bed scale Routine Weight Entry Format : Sutter Routine Weight, Pounds : 190 lb Routine Weight Calculation : 86.36 kg Height Source : Stated Height Entry Format : Sutter Height, Feet : 5 ft Height, Inches : 4 Inch Clinical Height : 162.56 cm Body Surface Area (BSA), Routine : 1.92 m2 Body Mass Index (BMI), Routine : 32.68 kg/m2 JULIO LUND RN-PATIENT CARE BEDSIDE NON-EXEMPT - 08/16/2021 9:18 EDT Electronically signed by Lanny, [facility] Conversion Clinic Scheduler Cerner at 03/09/2023 8:33 PM CDT documented in this encounter Plan of Treatment Not on file documented as of this encounter Visit Diagnoses Not on filedocumented in this encounter Care Teams Gripper Installer Relationship Specialty Start Date End Date Reji Castro MD [address] [place] [address] PCP - General Adolescent Medicine 10/02/22 documented as of this encounter
--- OUTSIDE RECORDS SUMMARY | 2025-06-13 13:01 | XMS_ITS | Encounter Summary ---
Author Organization [employer] ([place], [place], [place], [place]) Address [address] [place] [address] Care Team Providers Care Stacker Name Role Phone Reji Castro MD Primary Care Provider + [phone] Encounter Details Date Type Department Care Team (Late st Contact Info) Description 08/27/2021 Transcribed Document [facility] [place] [facility] [address] ProviderDelvin MD [address] [place] [address] [phone] Social History Tobacco Use Types Packs/Day Years [...] On: 08/27/2021 14:36 EDT by SHAISTA WOLFF Couples Therapist Final Discharge Planning Discharge Arrangements : Patient [...] Services (Related/SOC within 3 days)-06 SHAISTA WOLFF Couples Therapist - 08/27/2021 14:36 EDT Final Narrative Note Final Narrative Note : Admission day 16, on room air to discharge home today, transport via s/o Jorge, who will assist with care. Home health for lab work and Port-a cath care via [facility] ([phone]/Radha Souza), IV Abx via [facility], they will deliver medication to patient's home this evening and patient was taught at bedside how to give herself the infusion, patient's follow up Coumadin Clinic (via [facility] [phone]/cBrett) appt set for 09/03/2021 at 0900. All other appointments in place via Virtual RN. Pt, RN aware and in agreement with plan. SHAISTA WOLFF Social Worker - 08/27/2021 14:36 EDT Electronically signed by Lanny [facility] Conversion Starch And Prosize Mixer Cerner at 03/09/2023 8:58 PM CDT documented in this encounter Plan of Treatment Not on file documented as of this encounter Visit Diagnoses Not on filedocumented in this encounter Care Teams Stacker Relationship Specialty Start Date End Date Reji Castro MD [address] [place] [address] PCP - General Adolescent Medicine 10/02/22 documented as of this encounter
--- OUTSIDE RECORDS SUMMARY | 2025-06-13 13:01 | XMS_ITS | Encounter Summary ---
Author Organization [employer] ([place], [place], [place], [place]) Address [address] [place] [address] Care Team Providers Care Vocational Rehabilitation Supervisor Name Role Phone Reji Castro MD Primary Care Provider + [phone] Encounter Details Date Type Department Care Team (Late st Contact Info) Description 08/12/2021 Transcribed Document [facility] [place] [facility] [place] [address] ProviderDelvin MD [address] [place] [address] [phone] Social History Tobacco Use Types Packs/Day Years Used Date Smoking Tobacco: Never Assessed Comments Unknown Sex and Gender Information Value Date Recorded Sex Assigned at Not on file Legal Sex Female 4:32 PM CDT Gender Identity Not on file Sexual Orientation Not on file documented as of this encounter Miscellaneous Notes * Cerner Conversion Note - Historical ProviderMD - 08/12/2021 2:00 AM CDT General Manager Details Entered On: 08/12/2021 0:22 EDT Performed [address] [place] [address] PCP - General Adolescent Medicine 10/02/22 documented as of this encounter
--- OUTSIDE RECORDS SUMMARY | 2025-06-13 13:01 | XMS_ITS | Encounter Summary ---
Author Organization [employer] ([place], [place], [place], [place]) Address [address] [place] [address] Care Team Providers Care Accounts Payable Or Receivable Clerk Name Role Phone Reji Tovar MD Primary Care Provider + [phone] Encounter Details Date Type Department Care Team (Late st Contact Info) Description 08/27/2021 Transcribed Document [facility] [place] [address] ProviderDelvin MD [address] [place] [address] [phone] Social History Tobacco Use Types Packs/Day Years [...] take to pcp f/u Depression Celexa Pain Star 10 mg every 6 hours as needed Procedures SN - Proc - Procedure: Vascular Access Insertion (08/19/21 08:00:32)ATE OF PROCEDURE: 08/19/2021 SURGEON: Nena Holliday MD 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 PROCEDURE PERFORMED: Right IJ PowerPort placement. MAJOR GIFTS DIRECTOR: Cherri Ya. ANESTHESIA: Local MAC. FINDINGS: An 8-Mauritian single lumen PowerPort was placed using a [...] and J-wire followed by passage of the 8-Mauritian single-lumen catheter. Once again, fluoroscopy was used [...] taken to the Recovery in stable condition. /[id number] Nena Holliday MD JMH/AQ [1] Operative Report [...] back to her room in stable condition. /[id number] MD GERMAINE Pollard/AQ / DOTTIE / MODL /[id number] Signature Line Electronically Signed on 08/14/2021 11:35 [...] past, CAD, mitral valve replacement presents to [facility] emergency department in [place] after being told by outside provider that [...] what doses. She was seen by our splash line operator with no new findings, rec to f/u with her usual splash line operator. Vital Signs T: 36.4 ??C TMIN: [...] 2 g injection 2 Gram, IV Piggyback, [id number] Celexa 40 mg oral tablet 40 mg [...] -- Start: 08/19/21 9:34:00 EDT, 60 gm carbs:[id number] kori, Isolation: Standard Precautions, Instructions: Diabetic Diet Follow Up Labs/Studies Blood Gases (Current Encounter/Past 24 Hours) No Blood Gas Results Found (Past 24 Hours) Electrolytes(BMP) Results (Current Encounter/Past 24 Hours) Sodium Level 137 mmol/L 08/27/2021 05:09 Potassium Level 4.0 mmol/L 08/27/2021 05:09 Chloride Level 97 mmol/L LOW 08/27/2021 05:09 Carbon Dioxide Level 36 mmol/L CT 08/27/2021 05:09 Anion Gap 8 LOW 08/27/2021 05:09 Blood Urea Nitrogen 22 mg/dL 08/27/2021 05:09 Glucose Level 140 mg/dL CT 08/27/2021 05:09 Calcium Level 9.5 mg/dL 08/27/2021 05:09 Creatinine Level 1.40 mg/dL CT 08/27/2021 05:09 Cardiac Markers (Current Encounter/Past 24 [...] LOW 08/27/2021 05:09 Creatinine Level 1.40 mg/dL CT 08/27/2021 05:09 eGFR 47 mL/min/1.73m2 LOW 08/27/2021 05:09 Sodium Level 137 mmol/L 08/27/2021 05:09 Potassium Level 4.0 mmol/L 08/27/2021 05:09 Chloride Level 97 mmol/L LOW 08/27/2021 05:09 Carbon Dioxide Level 36 mmol/L CT 08/27/2021 05:09 Anion Gap 8 LOW 08/27/2021 05:09 Blood Urea Nitrogen 22 mg/dL 08/27/2021 05:09 Glucose Level 140 mg/dL CT 08/27/2021 05:09 Calcium Level 9.5 mg/dL 08/27/2021 05:09 Coagulation Results (Current Encounter/Past 24 Hours) PT 26.0 Second(s) CT 08/27/2021 05:[address] 08/27/2021 05:04 Creatinine Clearance (Current Encounter/Past 24 Hours) Creatinine Level 1.40 mg/dL CT 08/27/2021 08:46 Bun/Creatinine 15.7 08/27/2021 05:09 Estimated [...] 08/11/2021 20:36 EDT Electronically signed by Lanny [facility] Conversion Hot Die Press Feeder Cerner at 03/09/2023 8:54 PM CDT documented in this encounter Plan of Treatment Not on file documented as of this encounter Visit Diagnoses Not on filedocumented in this encounter Care Teams Accounts Payable Or Receivable Clerk Relationship Specialty Start Date End Date Reji Tovar MD [address] [place] [address] PCP - General Adolescent Medicine 10/02/22 documented as of this encounter
--- OUTSIDE RECORDS SUMMARY | 2025-06-13 13:01 | XMS_ITS | Encounter Summary ---
Author Organization [employer] ([place], [place], [place], [place]) Address [address] [place] [address] Care Team Providers Care Process Assistant Name Role Phone Reji Castro MD Primary Care Provider + [phone] Encounter Details Date Type Department Care Team (Late st Contact Info) Description 08/27/2021 Transcribed Document [facility] [place] [address] [place] [address] ProviderDelvin MD [address] [place] [address] [phone] Social History Tobacco Use Types Packs/Day Years [...] on filedocumented in this encounter Care Teams Process Assistant Relationship Specialty Start Date End Date Reji Castro MD [address] [place] [address] PCP - General Adolescent Medicine 10/02/22 documented as of this encounter
--- OUTSIDE RECORDS SUMMARY | 2025-06-13 13:01 | XMS_ITS | Encounter Summary ---
Author Organization [employer] ([place], [place], [place], [place]) Address [address] [place] [address] Care Team Providers Care Money Room Supervisor Name Role Phone Reji Castro MD Primary Care Provider + [phone] Encounter Details Date Type Department Care Team (Late st Contact Info) Description 08/12/2021 Transcribed Document [facility] [place] Family Medicine [address] [place] [address] ProviderDelvin MD [address] [place] [address] [phone] Social History Tobacco Use Types Packs/Day Years [...] on filedocumented in this encounter Care Teams Money Room Supervisor Relationship Specialty Start Date End Date Reji Castro MD [address] [place] [address] PCP - General Adolescent Medicine 10/02/22 documented as of this encounter
--- OUTSIDE RECORDS SUMMARY | 2025-06-13 13:01 | XMS_ITS | Encounter Summary ---
Author Organization [employer] ([place], [place], [place], [place]) Address [address] [place] [address] Care Team Providers Care Trimmer Buffing Wheel Name Role Phone Reji Castro MD Primary Care Provider + [phone] Encounter Details Date Type Department Care Team (Late st Contact Info) Description 08/16/2021 Transcribed Document [facility] [place] Family Medicine [address] [place] [address] ProviderDelvin MD [address] [place] [address] [phone] Social History Tobacco Use Types Packs/Day Years [...] by Lanny [facility] Conversion Active Directory Engineer Cerner at 03/09/2023 8:45 PM CDT documented in this encounter Plan of Treatment Not on file documented as of this encounter Visit Diagnoses Not on filedocumented in this encounter Care Teams Trimmer Buffing Wheel Relationship Specialty Start Date End Date Reji Castro MD [address] [place] [address] PCP - General Adolescent Medicine 10/02/22 documented as of this encounter
--- OUTSIDE RECORDS SUMMARY | 2025-06-13 13:01 | XMS_ITS | Encounter Summary ---
Author Organization [employer] ([place], [place], [place], [place]) Address [address] [place] [address] Care Team Providers Care Diploma Dental Assistant Name Role Phone Reji Castro MD Primary Care Provider + [phone] Encounter Details Date Type Department Care Team (Late st Contact Info) Description 08/12/2021 Transcribed Document [facility] [place] [address] ProviderDelvin MD [address] [place] [address] [phone] Social History Tobacco Use Types Packs/Day Years [...] 08/12/2021 5:00 EDT by Morelia Jose [facility] Unit Coord Height and Weight, Routine Routine Weight Source : Standing scale Routine Weight Entry Format : Pepin Routine Weight, Pounds : 223 lb Routine Weight, Ounces : 4 oz Routine Weight Calculation : 101.48 kg Height Source : Stated Height Entry Format : Pepin Height, Feet : 5 ft Height, Inches : 4 Inch Clinical Height : 162.56 cm Body Surface Area (BSA), Routine : 2.05 m2 Body Mass Index (BMI), Routine : 38.4 kg/m2 Morelia Jose Base Cloth Inspector-Health Unit [facility] - 08/12/2021 5:18 EDT Electronically signed by Lanny, [facility] Conversion Body Care Manager Cerner at 03/09/2023 8:49 PM CDT documented in this encounter Plan of Treatment Not on file documented as of this encounter Visit Diagnoses Not on filedocumented in this encounter Care Teams Diploma Dental Assistant Relationship Specialty Start Date End Date Reji Castro MD [address] [place] [address] PCP - General Adolescent Medicine 10/02/22 documented as of this encounter
--- OUTSIDE RECORDS SUMMARY | 2025-06-13 13:01 | XMS_ITS | Clinical Summary ---
Author Organization [employer] ([place], [place], [place], [place]) Address [address] [place] [address] Care Team Providers Care Data Entry Operator Name Role Phone Reji Castro MD Primary Care Provider [phone] Allergies Active Allergy Reactions Criticality Noted Date [...] (1 - 1-dose 75+ series) 2038 Insurance [facility] Advance Directives For more information, please contact: [phone] Documents on File Type Date Recorded Patient Process Design Chemical Engineer Expl anation Advance Directives and Livin g Will 10/05/2022 8:36 AM Care Teams Data Entry Operator Relationship Specialty Start Date End Date Reji Castro MD [address] [place] [address] PCP - General Adolescent Medicine 10/02/22
--- OUTSIDE RECORDS SUMMARY | 2025-06-13 13:01 | XMS_ITS | Encounter Summary ---
Author Organization [employer] ([place], [place], [place], [place]) Address [address] [facility] [place] [address] Care Team Providers Care Electrical Control Assembler Name Role Phone Reji Castro MD Primary Care Provider [phone] Encounter Details Date Type Department Care Team (Late st Contact Info) Description 10/02/2022 Outside Orders [facility] Central Scheduling [address] [place] [address] Marion Umana MD [address] [facility] [address] [place], [place] [id number] Stage 3 chronic kidney disease, unspecified whether [...] Primary documented in this encounter Care Teams Electrical Control Assembler Relationship Specialty Start Date End Date Reji Castro MD [address] [place] [address] PCP - General Adolescent Medicine 10/02/22 documented as of this encounter
--- OUTSIDE RECORDS SUMMARY | 2025-06-13 13:01 | XMS_ITS | Encounter Summary ---
Author Organization [employer] ([place], [place], [place], [place]) Address [address] [place] [address] Care Team Providers Care Technical Professional Name Role Phone Reji Castro MD Primary Care Provider + [phone] Encounter Details Date Type Department Care Team (Late st Contact Info) Description 08/12/2021 Transcribed Document [facility] [place] [facility] [address] ProviderDelvin MD [address] [place] [address] [phone] Social History Tobacco Use Types Packs/Day Years [...] Vancomycin HPI: 56 y/o F presenting to [facility] with history of COPD, atrial [...] Encounter/Past 24 Hours) Creatinine Level 2.40 mg/dL AK 08/12/2021 01:05 Bun/Creatinine 28.8 AK 08/12/2021 01:05 Est. CrCl: 35 mL/min Intake [...] questions. Thank you, Andrea Moraes, PharmD PGY1 Heavy Antiarmor Weapons Infantryman Pager: [phone] Ext. [phone] Electronically signed by Lanny [facility] Conversion Merchandise Flow Team Leader Cerner at 03/09/2023 8:45 PM CDT documented in this encounter Plan of Treatment Not on file documented as of this encounter Visit Diagnoses Not on filedocumented in this encounter Care Teams Technical Professional Relationship Specialty Start Date End Date Reji Castro MD [address] [place] [id number] PCP - General Adolescent Medicine 10/02/22 documented as of this encounter
--- OUTSIDE RECORDS SUMMARY | 2025-06-13 13:01 | XMS_ITS | Encounter Summary ---
Author Organization [employer] ([place], [place], [place], [place]) Address [address] [place] [address] Care Team Providers Care Lapidary Apprentice Name Role Phone Reji Castro MD Primary Care Provider [phone] Encounter Details Date Type Department Care Team (Late st Contact Info) Description 08/22/2021 Transcribed Document [facility] Radiology [address] [place] [address] Loren Solorzano MD [address] [place] [address] [place] [address] Social History Tobacco Use Types Packs/Day Years [...] cefTRIAXone: 2 Gram, 100 mL/Hr, IV Piggyback, [id number] diphenhydrAMINE: 25 mg, Oral, Q6H, PRN: Itching [...] Oral, BID cefTRIAXone 2 Gram, IV Piggyback, [id number] citalopram 20 mg tab 40 mg 2 [...] Bioprosthetic mitral valve replacement / SNOMED CT 485551588 / Confirmed Chronic kidney disease / SNOMED CT 5081136596 / Confirmed COPD - Chronic obstructive pulmonary disease / SNOMED CT 815255410 / Confirmed History of obstructive sleep apnea / IMO 08367760 / Confirmed HLD - Hyperlipidemia / SNOMED CT 695897446 / Confirmed HTN - Hypertension / SNOMED CT 4878824042 / Confirmed Canceled: Atrial fibrillation / SNOMED CT 25086811, Active Problems (25) AIHA (autoimmune hemolytic anemia) [...] Hold home meds SSI #Depression Celexa #Pain [place] 10 mg every 6 hours as needed [...] on filedocumented in this encounter Care Teams Lapidary Apprentice Relationship Specialty Start Date End Date Reji Castro MD [address] [place] [id number] PCP - General Adolescent Medicine 10/02/22 documented as of this encounter
--- OUTSIDE RECORDS SUMMARY | 2025-06-13 13:01 | XMS_ITS | Encounter Summary ---
Author Organization [employer] ([place], [place], [place], [place]) Address [address] [place] [address] Care Team Providers Care Gristmiller Name Role Phone Reji Castro MD Primary Care Provider + [phone] Encounter Details Date Type Department Care Team (Late st Contact Info) Description 08/16/2021 Transcribed Document [facility] [place] [facility] [place] [address] ProviderDelvin MD [address] [place] [address] Social History Tobacco Use Types Packs/Day [...] Historical ProviderMD - 08/16/2021 2:00 AM CDT Mechanical Engineering Manager Details Entered On: 08/16/2021 2:41 EDT [...] on filedocumented in this encounter Care Teams Gristmiller Relationship Specialty Start Date End Date Reji Castro MD [address] [place] [address] PCP - General Adolescent Medicine 10/02/22 documented as of this encounter
--- OUTSIDE RECORDS SUMMARY | 2025-06-13 13:01 | XMS_ITS | Encounter Summary ---
Author Organization [employer] ([place], [place], [place], [place]) Address [address] [place] [address] Care Team Providers Care Retail Pharmacy Manager Name Role Phone Reji Castro MD Primary Care Provider + [phone] Encounter Details Date Type Department Care Team (Late st Contact Info) Description 08/27/2021 Transcribed Document [facility] [place] Family Medicine [address] [place] [address] ProviderDelvin MD [address] [place], [place] [address] Social History Tobacco Use Types Packs/Day Years [...] On: 08/27/2021 10:31 EDT by Sallie Solorzano RN[employer] Stroke/Warfarin Instructions Stroke/TIA Discharge Ins : N/A Sallie Solorzano RN[employer] - 08/27/2021 10:34 EDT Warfarin Discharge Ins : Open Sallie Solorzano [employer] - 08/27/2021 10:31 EDT Warfarin Discharge Instructions Physician to Manage Warfarin : Sallie Tavarez RN-[employer] - 08/27/2021 10:34 EDT Indication for Warfarin [...] Dose/Frequency : 6 mg daily Sallie Solorzano RN[employer] - 08/27/2021 10:31 EDT Education Topics: Anticoagulant [...] : Tod Sawyer to manage Sallie Solorzano RN[employer] - 08/27/2021 10:34 EDT documented in this encounter Plan of Treatment Not on file documented as of this encounter Visit Diagnoses Not on filedocumented in this encounter Care Teams Retail Pharmacy Manager Relationship Specialty Start Date End Date Reji Castro MD [address] [place] [address] PCP - General Adolescent Medicine 10/02/22 documented as of this encounter
--- OUTSIDE RECORDS SUMMARY | 2025-06-13 13:01 | XMS_ITS | Encounter Summary ---
Author Organization [employer] ([place], [place], [place], [place]) Address [address] [place] [address] Care Team Providers Care Diesel Engine Ii Pipe Fitter Name Role Phone Reji Castro MD Primary Care Provider + [phone] Encounter Details Date Type Department Care Team (Late st Contact Info) Description 08/21/2021 Transcribed Document [facility] [place] [facility] [place] [address] ProviderDelvin MD [address] [place] [phone] Social History Tobacco Use Types Packs/Day Years [...] her port could not be accessed. Her pump servicer supervisor aspirated fluid from the port that was evidently purulent. I have not yet been able to track down that culture. After the aspiration she developed fever to 103, severe CHEUNG, myalgias and arthralgias. She was admitted to [facility]. She was in the hospital [...] antibiotics. On 08/08 she presented to a [facility] after she developed severe CHEUNG and myalgias w/o prominent fever. She was subsequently contacted and told to report to [facility] because she had + blood cutures concerning for an infected portacath +/- PVE. 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 Integumentary: Warm, Lafferty. Neurologic: Alert, Oriented, No focal deficits. Psychiatric: [...] on filedocumented in this encounter Care Teams Diesel Engine Ii Pipe Fitter Relationship Specialty Start Date End Date Reji Castro MD [address] [place] [address] PCP - General Adolescent Medicine 10/02/22 documented as of this encounter
--- OUTSIDE RECORDS SUMMARY | 2025-06-13 13:01 | XMS_ITS | Encounter Summary ---
Author Organization [employer] ([place], [place], [place], [place]) Address [address] [place] [address] Care Team Providers Care Insurance Advisor Name Role Phone Reji Castro MD Primary Care Provider + [phone] Encounter Details Date Type Department Care Team (Late st Contact Info) Description 08/22/2021 Transcribed Document [facility] [place] [facility] [place] [address] ProviderDelvin MD [address] [place] [address] 067691 Social History Tobacco Use Types Packs/Day Years [...] Warfarin HPI: 56 y/o F presenting to [facility] with history of COPD, atrial fibrillation, CKD [...] cefTRIAXone: 2 Gram, 100 mL/Hr, IV Piggyback, [id number]. citalopram: 40 mg, Oral, Daily. diphenhydrAMINE: 25 [...] weekend. Thank you, Andrea Moraes, PharmD PGY1 Environmental Health Safety Engineer Pager: [phone], Ext. [phone] documented in this encounter Plan of Treatment Not on file documented as of this encounter Visit Diagnoses Not on filedocumented in this encounter Care Teams Insurance Advisor Relationship Specialty Start Date End Date Reji Castro MD [address] [place] [address] PCP - General Adolescent Medicine 10/02/22 documented as of this encounter
--- OUTSIDE RECORDS SUMMARY | 2025-06-13 13:02 | XMS_ITS | Encounter Summary ---
Author Organization [employer] ([place], [place], [place], [place]) Address [address] [place] [address] Care Team Providers Care Salesperson Pets And Pet Supplies Name Role Phone Reji Castro MD Primary Care Provider + [phone] Encounter Details Date Type Department Care Team (Late st Contact Info) Description 08/23/2021 Transcribed Document [facility] [place] [facility] [place] [address] ProviderDelvin MD [address] [place] [phone] Social History Tobacco Use Types Packs/Day Years Used Date Smoking Tobacco: Never Assessed Comments Unknown Sex and Gender Information Value Date Recorded Sex Assigned at Not on file Legal Sex Female 4:32 PM CDT Gender Identity Not on file Sexual Orientation Not on file documented as of this encounter Miscellaneous Notes * Cerner Conversion Note - Historical ProviderMD - 08/23/2021 2:00 AM CDT Director Of Strategic Communications Details Entered On: 08/23/2021 2:15 EDT Performed On: 08/23/2021 2:00 EDT by Cecilia Lai, Hearing Therapy Director-Student Nurse Order Details Transport Mode Order Detail : Wheelchair Isolation Precautions Order Detail : Standard Precautions Order Detail : 0 IV Order Detail : 1 Oxygen Order Detail : 0 Lift/Transfer : Independent Central Line Order Detail : Yes Room Service : Appropriate Arterial Line : No Patient Needs Meds Crushed/Liquid : No Cecilia Lai, Hearing Therapy Director-Student Nurse - 08/23/2021 2:15 EDT documented in this encounter Plan of Treatment Not on file documented as of this encounter Visit Diagnoses Not on filedocumented in this encounter Care Teams Salesperson Pets And Pet Supplies Relationship Specialty Start Date End Date Reji Castro MD [address] [place] [address] PCP - General Adolescent Medicine 10/02/22 documented as of this encounter
--- OUTSIDE RECORDS SUMMARY | 2025-06-13 13:02 | XMS_ITS | Encounter Summary ---
Author Organization [employer] ([place], [place], [place], [place]) Address [address] [place] [address] Care Team Providers Care Collection Coordinator Name Role Phone Reji Castro MD Primary Care Provider [phone] Encounter Details Date Type Department Care Team (Late st Contact Info) Description 08/24/2021 Transcribed Document [facility] Radiology 1 [place] [address] Loren Solorzano MD [address] [place] [address] [place] [address] Social History Tobacco Use Types Packs/Day Years [...] cefTRIAXone: 2 Gram, 100 mL/Hr, IV Piggyback, [id number] diphenhydrAMINE: 25 mg, Oral, Q6H, PRN: Itching [...] Oral, BID cefTRIAXone 2 Gram, IV Piggyback, [id number] citalopram 20 mg tab 40 mg 2 [...] Bioprosthetic mitral valve replacement / SNOMED CT 091703572 / Confirmed Chronic kidney disease / SNOMED CT 2670954473 / Confirmed COPD - Chronic obstructive pulmonary disease / SNOMED CT 655558090 / Confirmed History of obstructive sleep apnea / IMO 68734933 / Confirmed HLD - Hyperlipidemia / SNOMED CT 216994425 / Confirmed HTN - Hypertension / SNOMED CT 1185968739 / Confirmed Canceled: Atrial fibrillation / SNOMED CT 66213285, Active Problems (25) AIHA (autoimmune hemolytic anemia) [...] 26.6 \ Radiology Results (Last 48 hours) [id number] -- 08/11/2021 21:21 CR Chest 1 Vw [...] Hold home meds SSI #Depression Celexa #Pain [place] 10 mg every 6 hours as needed CODE STATUS. Full code Dispo: Given patient with history of multiple blood transfusion we will keep patient in the hospital on heparin drip and Coumadin till INR therapeutic need IV abx, at least until 09/08. Discussed with case management associate. and pharmcy Time spent 25 minutes documented in this encounter Plan of Treatment Not on file documented as of this encounter Visit Diagnoses Not on filedocumented in this encounter Care Teams Collection Coordinator Relationship Specialty Start Date End Date Reji Castro MD [address] [place] [address] PCP - General Adolescent Medicine 10/02/22 documented as of this encounter
--- OUTSIDE RECORDS SUMMARY | 2025-06-13 13:02 | XMS_ITS | Encounter Summary ---
Author Organization [employer] ([place], [place], [place], [place]) Address [address] [place] [address] Care Team Providers Care Fire Control Technician Name Role Phone Reji Castro MD Primary Care Provider + [phone] Encounter Details Date Type Department Care Team (Late st Contact Info) Description 08/27/2021 Transcribed Document [facility] [place] [facility] [place] [address] ProviderDelvin MD [address] [place] [address] Social History Tobacco Use Types Packs/Day Years [...] cefTRIAXone: 2 Gram, 100 mL/Hr, IV Piggyback, [id number] diphenhydrAMINE: 25 mg, Oral, Q6H, PRN: Itching [...] 2 g injection: 2 Gram, IV Piggyback, Z61FFly, 0 Refill(s) cefdinir 300 mg oral capsule: [...] Oral, BID cefTRIAXone 2 Gram, IV Piggyback, [id number] citalopram 20 mg tab 40 mg 2 [...] Bioprosthetic mitral valve replacement / SNOMED CT 980264368 / Confirmed Chronic kidney disease / SNOMED CT 4698443186 / Confirmed COPD - Chronic obstructive pulmonary disease / SNOMED CT 643196285 / Confirmed History of obstructive sleep apnea / IMO 07016562 / Confirmed HLD - Hyperlipidemia / SNOMED CT 025785693 / Confirmed HTN - Hypertension / SNOMED CT 4774985034 / Confirmed Canceled: Atrial fibrillation / SNOMED CT 00470941, Active Problems (25) AIHA (autoimmune hemolytic anemia) [...] filedocumented in this encounter Care Teams Fire Control Technician Relationship Specialty Start Date End Date Reji Castro MD [address] [place] [address] PCP - General Adolescent Medicine 10/02/22 documented as of this encounter
--- OUTSIDE RECORDS SUMMARY | 2025-06-13 13:02 | XMS_ITS | Referral Summary ---
Author Organization [employer] ([place], [place], [place], [place]) Address [address] [place] [address] Care Team Providers Care Dumper Operator Name Role Phone Reji Castro MD Primary Care Provider [phone] Allergies Active Allergy Reactions Criticality Noted Date [...] Date Yash rded Speak language other than Northern Irish at home Not on file 12/10/2023 Want [...] Advance Directives For more information, please contact: [phone] Documents on File Type Date Recorded Patient Furnace Mechanic Helper Expl anation Advance Directives and Livin g Will 10/05/2022 8:36 AM Care Teams Dumper Operator Relationship Specialty Start Date End Date Reji Castro MD [address] [place] [address] PCP - General Adolescent Medicine 10/02/22
--- OUTSIDE RECORDS SUMMARY | 2025-06-13 13:02 | XMS_ITS | Encounter Summary ---
Author Organization [employer] ([place], [place], [place], [place]) Address [address] [place] [address] Care Team Providers Care Tree Surgeon Helper Name Role Phone Reji Castro MD Primary Care Provider + [phone] Encounter Details Date Type Department Care Team (Late st Contact Info) Description 08/18/[address] [facility] [place] [facility] [place] [address] ProviderDelvin MD [address] [place] [phone] Social History Tobacco Use Types Packs/Day Years [...] History of obstructive sleep apnea / IMO 80870857 / Confirmed Bioprosthetic mitral valve replacement / SNOMED CT 592288837 / Confirmed Chronic kidney disease / SNOMED CT 0621934927 / Confirmed COPD - Chronic obstructive pulmonary disease / SNOMED CT 269411009 / Confirmed HTN - Hypertension / SNOMED CT 1959828918 / Confirmed HLD - Hyperlipidemia / SNOMED CT 901121538 / Confirmed Amblyopia / SNOMED CT 7347860072 / Confirmed 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 / SNOMED CT 568125995 / Confirmed Myocardial infarction / SNOMED CT 21162771 / Confirmed Atrial fibrillation / SNOMED CT 00196296 / Confirmed GERD - Gastro-esophageal reflux disease / SNOMED CT 0997166990 / Confirmed Diverticulosis / SNOMED CT 7013218955 / Confirmed Hepatomegaly / SNOMED CT 674342991 / Confirmed Renal calculus / SNOMED CT 403142182 / Confirmed Ovarian cyst / SNOMED CT 681636410 / Confirmed Arthritis / SNOMED CT 5204390 / Confirmed Back pain / PNED [id number] / Confirmed Fibromyalgia / SNOMED CT 83716380 / Confirmed Restless legs syndrome / SNOMED CT 61533473 / Confirmed Diabetes mellitus type II / SNOMED CT 85644516 / Confirmed Thyroid disease / SNOMED CT 178024423 / Confirmed Edema / SNOMED CT 685483416 / Confirmed BLE neuropathy hands and feet / Confirmed frequent headache / Confirmed AIHA (autoimmune hemolytic anemia) / SNOMED CT 4335447455 / Confirmed, Active Problems (25) AIHA (autoimmune [...] filedocumented in this encounter Care Teams Tree Surgeon Helper Relationship Specialty Start Date End Date Reji Castro MD [address] [place] [address] PCP - General Adolescent Medicine 10/02/22 documented as of this encounter
--- OUTSIDE RECORDS SUMMARY | 2025-06-13 13:02 | XMS_ITS | Encounter Summary ---
Author Organization [employer] ([place], [place], [place], [place]) Address [address] [place] [address] Care Team Providers Care Honeycomb Blanket Maker Name Role Phone Reji Castro MD Primary Care Provider + [phone] Encounter Details Date Type Department Care Team (Late st Contact Info) Description 08/23/2021 Transcribed Document [facility] [place] [facility] [place] [address] ProviderDelvin MD [address] [place] [id number] Social History Tobacco Use Types Packs/Day Years [...] cefTRIAXone: 2 Gram, 100 mL/Hr, IV Piggyback, [id number] diphenhydrAMINE: 25 mg, Oral, Q6H, PRN: Itching [...] Oral, BID cefTRIAXone 2 Gram, IV Piggyback, T85XNjw citalopram 20 mg tab 40 mg 2 [...] Bioprosthetic mitral valve replacement / SNOMED CT 455804674 / Confirmed Chronic kidney disease / SNOMED CT 4736504834 / Confirmed COPD - Chronic obstructive pulmonary disease / SNOMED CT 772626265 / Confirmed History of obstructive sleep apnea / IMO 79597793 / Confirmed HLD - Hyperlipidemia / SNOMED CT 565896152 / Confirmed HTN - Hypertension / SNOMED CT 8845677657 / Confirmed Canceled: Atrial fibrillation / SNOMED CT 24807726, Active Problems (25) AIHA (autoimmune hemolytic anemia) [...] on filedocumented in this encounter Care Teams Honeycomb Blanket Maker Relationship Specialty Start Date End Date Reji Castro MD [address] [place] [address] PCP - General Adolescent Medicine 10/02/22 documented as of this encounter
--- OUTSIDE RECORDS SUMMARY | 2025-06-13 13:02 | XMS_ITS | Encounter Summary ---
Author Organization [employer] ([place], [place], [place], [place]) Address [address] [place] [address] Care Team Providers Care Salon Receptionist Name Role Phone Reji Castro MD Primary Care Provider + [phone] Encounter Details Date Type Department Care Team (Late st Contact Info) Description 08/23/2021 Transcribed Document [facility] [place] [address] [place] [address] ProviderDelvin MD [address] [place] [address] Social History Tobacco Use Types Packs/Day Years [...] on filedocumented in this encounter Care Teams Salon Receptionist Relationship Specialty Start Date End Date Reji Castro MD [address] [place] [address] PCP - General Adolescent Medicine 10/02/22 documented as of this encounter
--- OUTSIDE RECORDS SUMMARY | 2025-06-13 13:02 | XMS_ITS | Encounter Summary ---
Author Organization [employer] ([place], [place], [place], [place]) Address [address] [place] [address] Care Team Providers Care Child Care Assistant Name Role Phone Reji Castro MD Primary Care Provider + [phone] Encounter Details Date Type Department Care Team (Late st Contact Info) Description 08/13/2021 Transcribed Document [facility] [place] [place] [facility] [place] [address] ProviderDelvin MD [address] [place] [address] 052141 Social History Tobacco Use Types Packs/Day Years [...] mg, 14 mL, 128 mL/Hr, IV Piggyback, G37YVec Dextrose 50% injection: 12.5 Gram, IV Push, [...] improvement time 35mins Electronically signed by Lanny, [facility] Conversion Enthone Solder Stripper Cerner at 03/09/2023 9:02 PM CDT documented in this encounter Plan of Treatment Not on file documented as of this encounter Visit Diagnoses Not on filedocumented in this encounter Care Teams Child Care Assistant Relationship Specialty Start Date End Date Reji Castro MD [address] [place] [address] PCP - General Adolescent Medicine 10/02/22 documented as of this encounter
--- OUTSIDE RECORDS SUMMARY | 2025-06-13 13:02 | XMS_ITS | Encounter Summary ---
Author Organization [employer] ([place], [place], [place], [place]) Address [address] [place] [address] Care Team Providers Care Cement Conveyor Operator Name Role Phone Reji Castro MD Primary Care Provider + [phone] Encounter Details Date Type Department Care Team (Late st Contact Info) Description 08/23/2021 Transcribed Document [facility] [place] [facility] [place] [address] ProviderDelvin MD [address] [place] [address] [phone] Social History Tobacco Use Types Packs/Day Years [...] cefTRIAXone: 2 Gram, 100 mL/Hr, IV Piggyback, G40ACpw. citalopram: 40 mg, Oral, Daily. diphenhydrAMINE: 25 [...] you, Noy Garrett, PharmD PGY-1 Resident Pager #[phone] Electronically signed by Lanny [facility] Conversion Public Works Commissioner Cerner at 03/09/2023 8:59 PM CDT documented in this encounter Plan of Treatment Not on file documented as of this encounter Visit Diagnoses Not on filedocumented in this encounter Care Teams Cement Conveyor Operator Relationship Specialty Start Date End Date Reji Castro MD [address] [place] [id number] PCP - General Adolescent Medicine 10/02/22 documented as of this encounter
--- OUTSIDE RECORDS SUMMARY | 2025-06-13 13:02 | XMS_ITS | Encounter Summary ---
Author Organization Healthcare Address [address] [place] [address] Care Team Providers Care Copying Machine Mechanic Name Role Phone Anna Marie Savage MD Primary Care Provider [phone] Reji Castro MD Primary Care Provider [phone] Encounter Details Date Type Department Care Team (Late st Contact Info) Description 10/05/2022 Orders Only External Location [address] [place] [phone] Provider, External Social History Tobacco Use Types [...] Description 06/25/2025 1:40 PM EDT Office Visit [facility] Nephrology, Bone & Mineral Metabolism [address] [facility], [address] [place] [address] 06/26/2025 10:30 AM EDT Appointment Cardiac Imaging [address] [place] [address] 06/26/2025 1:00 PM EDT Appointment [facility] Radiology [address] [place] [address] documented as of this encounter Procedures Procedure [...] on filedocumented in this encounter Care Teams Copying Machine Mechanic Relationship Specialty Start Date End Date Anna Marie Savage MD [address] [place] [address] PCP - General 04/04/21 12/07/23 Reji Castro MD [facility] [address] [place] [address] PCP - General Internal Medicine 12/08/23 documented as of this encounter
--- OUTSIDE RECORDS SUMMARY | 2025-06-13 13:02 | XMS_ITS | Encounter Summary ---
Author Organization [email or web address] ([place], [place], [place], [place]) Address [address] [place] [address] Care Team Providers Care Procedure Rn Name Role Phone Reji Castro MD Primary Care Provider + [phone] Encounter Details Date Type Department Care Team (Late st Contact Info) Description 08/17/2021 Transcribed Document [facility] [place] Family Medicine [facility] [place] [address] ProviderDelvin MD [address] [place] [address] 136161 Social History Tobacco Use Types Packs/Day Years [...] on filedocumented in this encounter Care Teams Procedure Rn Relationship Specialty Start Date End Date Reji Castro MD [address] [place] [address] PCP - General Adolescent Medicine 10/02/22 documented as of this encounter
--- OUTSIDE RECORDS SUMMARY | 2025-06-13 13:02 | XMS_ITS | Encounter Summary ---
Author Organization [employer] ([place], [place], [place], [place]) Address [address] [place] [address] Care Team Providers Care Shutdown Planner Name Role Phone Reji Castro MD Primary Care Provider + [phone] Encounter Details Date Type Department Care Team (Late st Contact Info) Description 08/18/2021 Transcribed Document [facility] [place] Count [facility] the [facility] [address] ProviderDelvin MD [address] [place] [address] [phone] Social History Tobacco Use Types Packs/Day Years [...] her port could not be accessed. Her bale stacker aspirated fluid from the port that was evidently purulent. I have not yet been able to track down that culture. After the aspiration she developed fever to 103, severe CHEUNG, myalgias and arthralgias. She was admitted to [facility]. She was in the hospital for [...] PVE. 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 Integumentary: Warm, [place]. Neurologic: Alert, Oriented, No focal deficits. Psychiatric: [...] length with patient Electronically signed by Lanny [facility] Conversion Senior Mortgage Underwriter Cerner at 03/09/2023 8:49 PM CDT documented in this encounter Plan of Treatment Not on file documented as of this encounter Visit Diagnoses Not on filedocumented in this encounter Care Teams Shutdown Planner Relationship Specialty Start Date End Date Reji Castro MD [address] [place] [address] PCP - General Adolescent Medicine 10/02/22 documented as of this encounter
--- OUTSIDE RECORDS SUMMARY | 2025-06-13 13:02 | XMS_ITS | Encounter Summary ---
Author Organization [employer] ([place], [place], [place], [place]) Address [address] [place] [address] Care Team Providers Care Food Prep Worker Name Role Phone Reji Castro MD Primary Care Provider + [phone] Encounter Details Date Type Department Care Team (Late st Contact Info) Description 08/17/2021 Transcribed Document [facility] [place] [address] ProviderDelvin MD [address] [place] [address] [phone] Social History Tobacco Use Types Packs/Day Years [...] her port could not be accessed. Her qa reviewer aspirated fluid from the port that was evidently purulent. I have not yet been able to track down that culture. After the aspiration she developed fever to 103, severe CHEUNG, myalgias and arthralgias. She was admitted to [facility]. She was in the hospital [...] On 08/08 she presented to a [facility] after she developed severe CHEUNG and myalgias w/o prominent fever. She was subsequently contacted and told to report to [facility] because she had + blood cutures concerning for an infected portacath +/- PVE. 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 Integumentary: Warm, [place]. Neurologic: Alert, Oriented, No focal deficits. Psychiatric: [...] filedocumented in this encounter Care Teams Food Prep Worker Relationship Specialty Start Date End Date Reji Castro MD [address] [place] [address] PCP - General Adolescent Medicine 10/02/22 documented as of this encounter
--- OUTSIDE RECORDS SUMMARY | 2025-06-13 13:02 | XMS_ITS | Encounter Summary ---
Author Organization Healthcare Address [address] [place] [address] Care Team Providers Care Oyster Culler Name Role Phone Reji Castro MD Primary Care Provider [phone] Encounter Details Date Type Department Care Team (Late st Contact Info) Description 05/07/2025 Orders Only External Location [address] [place] [address] Provider, External Social History Tobacco Use Types [...] place to sleep or slept in a long term (including now)? No 11/19/2023 Utilities Answer Date [...] Description 06/25/2025 1:40 PM EDT Office Visit [facility] [address] [facility] [address] [facility], [address] [place] [phone] 06/26/2025 10:30 AM EDT Appointment Cardiac Imaging [address] [place] [phone] 06/26/2025 1:00 PM EDT Appointment [facility] [address] [place] [phone] documented as of this encounter Procedures Procedure [...] documented as of this encounter Care Teams Oyster Culler Relationship Specialty Start Date End Date Reji Castro MD [address] [place] [address] PCP - General Internal Medicine 12/08/23 documented as of this encounter
--- OUTSIDE RECORDS SUMMARY | 2025-06-13 13:02 | XMS_ITS | Encounter Summary ---
Author Organization [employer] ([place], [place], [place], [place]) Address [address] [place] [address] Care Team Providers Care Assistant Auditor Name Role Phone Reji Castro MD Primary Care Provider [phone] Encounter Details Date Type Department Care Team (Late st Contact Info) Description 08/17/2021 Transcribed Document [facility] [place] [facility] [place] [address] ProviderDelvin MD [address] [place], [place] 625181 Social History Tobacco Use Types Packs/Day Years [...] filedocumented in this encounter Care Teams Assistant Auditor Relationship Specialty Start Date End Date Reji Castro MD [address] [place] [address] PCP - General Adolescent Medicine 10/02/22 documented as of this encounter
--- OUTSIDE RECORDS SUMMARY | 2025-06-13 13:02 | XMS_ITS | Encounter Summary ---
Author Organization [employer] ([place], [place], [place], [place]) Address [address] [place] [address] Care Team Providers Care Social Media Campaign Manager Name Role Phone Reji Castro MD Primary Care Provider + [phone] Encounter Details Date Type Department Care Team (Late st Contact Info) Description 08/24/2021 Transcribed Document [facility] [place] [facility] [place] [address] ProviderDelvin MD [address] [place] [address] [phone] Social History Tobacco Use Types Packs/Day Years Used Date Smoking Tobacco: Never Assessed Comments Unknown Sex and Gender Information Value Date Recorded Sex Assigned at Not on file Legal Sex Female 4:32 PM CDT Gender Identity Not on file Sexual Orientation Not on file documented as of this encounter Miscellaneous Notes * Cerner Conversion Note - Historical ProviderMD - 08/24/2021 2:00 AM CDT Pizza Maker Details Entered On: 08/24/2021 0:53 EDT Performed [...] on filedocumented in this encounter Care Teams Social Media Campaign Manager Relationship Specialty Start Date End Date Reji Castro MD [address] [place] [address] PCP - General Adolescent Medicine 10/02/22 documented as of this encounter
--- OUTSIDE RECORDS SUMMARY | 2025-06-13 13:02 | XMS_ITS | Encounter Summary ---
Author Organization [employer] ([place], [place], [place], [place]) Address [address] [place] [address] Care Team Providers Care Chainstitch Elastic Attacher Name Role Phone Reji Castro MD Primary Care Provider + [phone] Encounter Details Date Type Department Care Team (Late st Contact Info) Description 08/13/2021 Transcribed Document [facility] [place] Family Medicine [address] [place] [address] ProviderDelvin MD [address] [place] [address] [phone] Social History Tobacco Use Types Packs/Day Years [...] On: 08/13/2021 9:56 EDT by Reina Tian, STRUCTURAL ANALYSIS ENGINEER Phone Call for Consults Consult Phone Call/Page Attempt : First call Consult Reason : paula cath infection, needing removal Physician Requested for Consult : Elieser VERNON MD-TATYANA Date and Time Call Returned : 08/14/2021 10:08 EDT Reina Tian, STRUCTURAL ANALYSIS ENGINEER - 08/13/2021 10:09 EDT documented in this encounter Plan of Treatment Not on file documented as of this encounter Visit Diagnoses Not on filedocumented in this encounter Care Teams Chainstitch Elastic Attacher Relationship Specialty Start Date End Date Reji Castro MD [address] [place] [address] PCP - General Adolescent Medicine 10/02/22 documented as of this encounter
--- OUTSIDE RECORDS SUMMARY | 2025-06-13 13:02 | XMS_ITS | Encounter Summary ---
Author Organization [employer] ([place], [place], [place], [place]) Address [address] [place] [address] Care Team Providers Care It Service Delivery Manager Name Role Phone Reji Castro MD Primary Care Provider + [phone] Encounter Details Date Type Department Care Team (Late st Contact Info) Description 08/27/2021 Transcribed Document [facility] [place] Medicine [address] [place] [address] ProviderDelvin MD [address] [place], [place] 626111 Social History Tobacco Use Types Packs/Day Years [...] 10:18 AM CDT Reji Castro MD [address] [facility] [address] [place] [address] Re: IRINA TAMAYO Date of Visit: 08/11/2021 [...] contents is strictly prohibited. Sincerely, FAIZA YOUSSEF [address] [facility] [address] [place] [address] The following document(s) were included in the letter: August 27, 2021 10:05:19 EDT - (08/27/2021) Discharge Note documented in this encounter Plan of Treatment Not on file documented as of this encounter Visit Diagnoses Not on filedocumented in this encounter Care Teams It Service Delivery Manager Relationship Specialty Start Date End Date Reji Castro MD [address] [place] [address] PCP - General Adolescent Medicine 10/02/22 documented as of this encounter
--- OUTSIDE RECORDS SUMMARY | 2025-06-13 13:02 | XMS_ITS | Encounter Summary ---
Author Organization [employer] ([place], [place], [place], [place]) Address [address] [place] [address] Care Team Providers Care Drum Carrier Name Role Phone Reji Castro MD Primary Care Provider + [phone] Encounter Details Date Type Department Care Team (Late st Contact Info) Description 08/24/2021 Transcribed Document [facility] [place] [address] ProviderDelvin MD [address] [place] [address] [phone] Social History Tobacco Use Types Packs/Day Years [...] cefTRIAXone: 2 Gram, 100 mL/Hr, IV Piggyback, [id number]. citalopram: 40 mg, Oral, Daily. diphenhydrAMINE: 25 [...] you, Noy Garrett, PharmD PGY-1 Resident Pager #[phone] Electronically signed by Lanny [facility] Conversion Wigs Salesperson Cerner at 03/09/2023 8:39 PM CDT documented in this encounter Plan of Treatment Not on file documented as of this encounter Visit Diagnoses Not on filedocumented in this encounter Care Teams Drum Carrier Relationship Specialty Start Date End Date Reji Castro MD [address] [place] [address] PCP - General Adolescent Medicine 10/02/22 documented as of this encounter
--- OUTSIDE RECORDS SUMMARY | 2025-06-13 13:02 | XMS_ITS | Encounter Summary ---
Author Organization [employer] ([place], [place], [place], [place]) Address [address] [place] [address] Care Team Providers Care Supervisor Education Name Role Phone Reji Castro MD Primary Care Provider + [phone] Encounter Details Date Type Department Care Team (Late st Contact Info) Description 08/13/2021 Transcribed Document [facility] [place] [address] [place] [address] ProviderDelvin MD [address] [place] [address] [phone] Social History Tobacco Use Types Packs/Day Years [...] filedocumented in this encounter Care Teams Supervisor Education Relationship Specialty Start Date End Date Reji Castro MD [address] [place] [address] PCP - General Adolescent Medicine 10/02/22 documented as of this encounter
--- OUTSIDE RECORDS SUMMARY | 2025-06-13 13:02 | XMS_ITS | Encounter Summary ---
Author Organization [employer] ([place], [place], [place], [place]) Address [address] [place] [address] Care Team Providers Care Sales Planning Manager Name Role Phone Reji Castro MD Primary Care Provider + [phone] Encounter Details Date Type Department Care Team (Late st Contact Info) Description 08/24/[address] [facility] [place] [facility] [place] [address] ProviderDelvin MD [address] [place] [address] [phone] Social History Tobacco Use Types Packs/Day Years [...] cefTRIAXone: 2 Gram, 100 mL/Hr, IV Piggyback, [id number] diphenhydrAMINE: 25 mg, Oral, Q6H, PRN: Itching [...] Oral, BID cefTRIAXone 2 Gram, IV Piggyback, [id number] citalopram 20 mg tab 40 mg 2 [...] Bioprosthetic mitral valve replacement / SNOMED CT 110104138 / Confirmed Chronic kidney disease / SNOMED CT 2313697857 / Confirmed COPD - Chronic obstructive pulmonary disease / SNOMED CT 433944410 / Confirmed History of obstructive sleep apnea / IMO [id number] / Confirmed HLD - Hyperlipidemia / SNOMED CT 979725705 / Confirmed HTN - Hypertension / SNOMED CT 7311697670 / Confirmed Canceled: Atrial fibrillation / SNOMED CT 12221799, Active Problems (25) AIHA (autoimmune hemolytic anemia) [...] GFR adjust medications. Electronically signed by [facility] Conversion Cattle Farmer Cerner at 03/09/2023 8:38 PM CDT documented in this encounter Plan of Treatment Not on file documented as of this encounter Visit Diagnoses Not on filedocumented in this encounter Care Teams Sales Planning Manager Relationship Specialty Start Date End Date Reji Castro MD [address] [place] [address] PCP - General Adolescent Medicine 10/02/22 documented as of this encounter
--- OUTSIDE RECORDS SUMMARY | 2025-06-13 13:02 | XMS_ITS | Encounter Summary ---
Author Organization [employer] ([place], [place], [place], [place]) Address [address] [place] [address] Care Team Providers Care Watershed Coordinator Name Role Phone Reji Castro MD Primary Care Provider + [phone] Encounter Details Date Type Department Care Team (Late st Contact Info) Description 08/27/2021 Transcribed Document [facility] [place] [facility] [place] [address] ProviderDelvin MD [address] [place] [address] [phone] Social History Tobacco Use Types Packs/Day Years [...] Acosta 3). Daily INR Will followZeyad PharmD, [facility] [phone] Electronically signed by Lanny [facility] Conversion Slipcover Cutter Cerner at 03/09/2023 8:32 PM CDT documented in this encounter Plan of Treatment Not on file documented as of this encounter Visit Diagnoses Not on filedocumented in this encounter Care Teams Watershed Coordinator Relationship Specialty Start Date End Date Reji Castro MD [address] [place] [address] PCP - General Adolescent Medicine 10/02/22 documented as of this encounter
--- OUTSIDE RECORDS SUMMARY | 2025-06-13 13:02 | XMS_ITS | Encounter Summary ---
Author Organization [employer] ([place], [place], [place], [place]) Address [address] [place] [address] Care Team Providers Care Nursing Student Name Role Phone Reji Castro MD Primary Care Provider + [phone] Encounter Details Date Type Department Care Team (Late st Contact Info) Description 08/23/2021 Transcribed Document [facility] [place] [address] ProviderDelvin MD [address] [place] [address] [phone] Social History Tobacco Use Types Packs/Day Years [...] On: 08/23/2021 5:00 EDT by Cecilia Lai Global Mobility Specialist-Student Nurse Chart Check Powerplans Initiated/Discontinued as Appropriate : Yes All Active Orders Reviewed : Yes Cecilia Lai Global Mobility Specialist-Student Nurse - 08/23/2021 5:19 EDT documented in this encounter Plan of Treatment Not on file documented as of this encounter Visit Diagnoses Not on filedocumented in this encounter Care Teams Nursing Student Relationship Specialty Start Date End Date Reji Castro MD [address] [place] [address] PCP - General Adolescent Medicine 10/02/22 documented as of this encounter
--- OUTSIDE RECORDS SUMMARY | 2025-06-13 13:02 | XMS_ITS | Encounter Summary ---
Author Organization [employer] ([place], [place], [place], [place]) Address [address] [place] [address] Care Team Providers Care Supervisor Lead Burning Name Role Phone Reji Castro MD Primary Care Provider + [phone] Encounter Details Date Type Department Care Team (Late st Contact Info) Description 08/18/2021 Transcribed Document [facility] [place] [address] [place] [address] ProviderDelvin MD [address] [place] [address] [phone] Social History Tobacco Use Types Packs/Day Years [...] Spiritual Care Intervention/Comment/Summary Points : PreSurgery visit [facility] Preference : Jainism FAIZA ARIZA - 09/02/2021 12:43 EDT documented in this encounter Plan of Treatment Not on file documented as of this encounter Visit Diagnoses Not on filedocumented in this encounter Care Teams Supervisor Lead Burning Relationship Specialty Start Date End Date Reji Castro MD [address] [place] [address] PCP - General Adolescent Medicine 10/02/22 documented as of this encounter
--- OUTSIDE RECORDS SUMMARY | 2025-06-13 13:02 | XMS_ITS | Encounter Summary ---
Author Organization [employer] ([place], [place], [place], [place]) Address [address] [place] [address] Care Team Providers Care Press Assistant And Feeder Name Role Phone Reji Castor MD Primary Care Provider + [phone] Encounter Details Date Type Department Care Team (Late st Contact Info) Description 08/17/2021 Transcribed Document [facility] [place] [address] [place] [address] ProviderDelvin MD [address] [place] [phone] Social History Tobacco Use Types Packs/Day Years [...] on filedocumented in this encounter Care Teams Press Assistant And Feeder Relationship Specialty Start Date End Date Reji Castro MD [address] [place] [address] PCP - General Adolescent Medicine 10/02/22 documented as of this encounter
--- OUTSIDE RECORDS SUMMARY | 2025-06-13 13:02 | XMS_ITS | Encounter Summary ---
Author Organization [employer] ([place], [place], [place], [place]) Address [address] [place] [address] Care Team Providers Care Hospice Executive Director Name Role Phone Reji Castro MD Primary Care Provider + [phone] Encounter Details Date Type Department Care Team (Late st Contact Info) Description 08/24/2021 Transcribed Document [facility] [place] [address] [place] [address] ProviderDelvin MD [address] [place] [address] 476751 Social History Tobacco Use Types Packs/Day Years [...] filedocumented in this encounter Care Teams Hospice Executive Director Relationship Specialty Start Date End Date Reji Castro MD [address] [place] [address] PCP - General Adolescent Medicine 10/02/22 documented as of this encounter
--- OUTSIDE RECORDS SUMMARY | 2025-06-13 13:02 | XMS_ITS | Encounter Summary ---
Author Organization [employer] ([place], [place], [place], [place]) Address [address] [place] [address] Care Team Providers Care Electrification Adviser Name Role Phone Reji Castro MD Primary Care Provider + [phone] Encounter Details Date Type Department Care Team (Late st Contact Info) Description 08/13/2021 Transcribed Document [facility] [place] [facility] [place] [address] ProviderDelvin MD [address] [place] [address] [phone] Social History Tobacco Use Types Packs/Day Years Used Date Smoking Tobacco: Never Assessed Comments Unknown Sex and Gender Information Value Date Recorded Sex Assigned at Not on file Legal Sex Female 4:32 PM CDT Gender Identity Not on file Sexual Orientation Not on file documented as of this encounter Miscellaneous Notes * Cerner Conversion Note - Historical ProviderMD - 08/13/2021 2:00 AM CDT Vice President Of Compliance Details Entered On: 08/13/2021 6:35 EDT Performed [...] on filedocumented in this encounter Care Teams Electrification Adviser Relationship Specialty Start Date End Date Reji Castro MD [address] [place] [address] PCP - General Adolescent Medicine 10/02/22 documented as of this encounter
--- OUTSIDE RECORDS SUMMARY | 2025-06-13 13:02 | XMS_ITS | Encounter Summary ---
Author Organization [employer] ([place], [place], [place], [place]) Address [address] [place] [address] Care Team Providers Care Store Consultant Name Role Phone Reji Castro MD Primary Care Provider + [phone] Encounter Details Date Type Department Care Team (Late st Contact Info) Description 08/13/2021 Transcribed Document [facility] [place] [facility] [address] ProviderDelvin MD [address] [place] [address] [phone] Social History Tobacco Use Types Packs/Day Years [...] Author: CHELI BEASLEY MD-CAR Basic Information Primary Educational Administration Teacher: Dr. Delmar Geronimo It Help Desk Analyst: MD Nestor Subjective NAD Health Status Current [...] mL 700 mg 14 mL, IV Piggyback, [id number] DAPTOmycin + NaCl 0.9% 50 mL 700 mg 14 mL, IV Piggyback, [id number] famotidine 20 mg tab 20 mg 1 [...] of motion, Normal strength. Integumentary: Warm, Dry, Marlin. Neurologic: Alert, Oriented. Psychiatric: Cooperative, Appropriate mood & affect. Results Review AUG 13 05:19 136 103 H 50 / 102 4.5 30 H 1.60 \ AUG 13 05:19 \ L 8.5 / 5.5 197 / L 28.7 \ Cardiac Markers (Current Encounter/Past 24 Hours) CK 87 Units/Liter 08/13/2021 05:53 ProBNP 587 pg/mL HI 08/13/2021 05:58 Radiology Results (Last 48 hours) [id number] -- 08/11/2021 21:21 CR Chest 1 Vw [...] mechan MV, 4+ TR, no vegetation. Admitted [facility] 07/12, Negative CHUCHO, TTE for vegetation [...] mechanical causes of hemolysis. Obtain records from [facility]. Check haptoglobin, LDH, reticulocyte count. Continue other current CV meds. Electronically signed by Loki Ca Conversion Vocational Rehabilitation Technician Cerner at 03/09/2023 8:50 PM CDT documented in this encounter Plan of Treatment Not on file documented as of this encounter Visit Diagnoses Not on filedocumented in this encounter Care Teams Store Consultant Relationship Specialty Start Date End Date Reij Castro MD [address] [place] [address] PCP - General Adolescent Medicine 10/02/22 documented as of this encounter
--- OUTSIDE RECORDS SUMMARY | 2025-06-13 13:02 | XMS_ITS | Encounter Summary ---
Author Organization [employer] ([place], [place], [place], [place]) Address [address] [place] [address] Care Team Providers Care Anatomic Pathology Assistant Name Role Phone Reji Castro MD Primary Care Provider + [phone] Encounter Details Date Type Department Care Team (Late st Contact Info) Description 08/13/2021 Transcribed Document [facility] [place] [facility] [place] [address] ProviderDelvin MD [address] [place] [address] [phone] Social History Tobacco Use Types Packs/Day Years [...] III. Patient follows with Dr gonzáles in [place]. She has hx of obstructive uropathy with [...] # 0.62 x10(3)/uL (Low) 08/13/2021 05:19 EDT [place] % 9.5 % (High) 08/13/2021 05:19 EDT [place] # 0.52 K/uL 08/13/2021 05:19 EDT Eos [...] mcg/mL 08/13/2021 05:19 EDT Electronically signed by [facility] Conversion Line Installer Cerner at 03/09/2023 9:02 PM CDT documented in this encounter Plan of Treatment Not on file documented as of this encounter Visit Diagnoses Not on filedocumented in this encounter Care Teams Anatomic Pathology Assistant Relationship Specialty Start Date End Date Reji Castro MD [address] [place] [address] PCP - General Adolescent Medicine 10/02/22 documented as of this encounter
--- OUTSIDE RECORDS SUMMARY | 2025-06-13 13:02 | XMS_ITS | Encounter Summary ---
Author Organization [employer] ([place], [place], [place], [place]) Address [address] [place] [address] Care Team Providers Care Routing Clerk Name Role Phone Reji Castro MD Primary Care Provider + [phone] Encounter Details Date Type Department Care Team (Late st Contact Info) Description 08/27/2021 Transcribed Document [facility] [place] [address] [place] [address] ProviderDelvin MD [address] [place] [address] [phone] Social History Tobacco Use Types Packs/Day Years [...] implanted port has two main parts: ??? [place]. The reservoir is the part where a [...] water are not available, use alcohol-based hand gore seamer. ? Change your dressing as told by [...] provider. Document Revised: 03/01/2020 Document Reviewed: 12/11/2017 [employer] Patient Education ? 2020 [employer] Cardiovascular Atrial Fibrillation Atrial fibrillation is [...] signals of the heart. ??? An ambulatory laboratory monitor to record your heart's activity for [...] provider. Document Revised: 05/01/2020 Document Reviewed: 05/01/2020 [employer] Patient Education ? 2020 [employer]. Caregiving Implanted Port Home Guide An implanted [...] implanted port has two main parts: ??? [place]. The reservoir is the part where a [...] water are not available, use alcohol-based hand gore seamer. ? Change your dressing as told by [...] provider. Document Revised: 03/01/2020 Document Reviewed: 12/11/2017 [employer] Patient Education ? 2020 [employer]. Endocrinology Diabetes Mellitus and Nutrition, Adult [...] Berries. Apples. Oranges. Peaches. Apricots. Plums. Grapes. [place]. Papaya. Pomegranate. Kiwi. Cherries. Vegetables Lettuce. Spinach. Leafy greens, including kale, chard, yanira greens, and mustard greens. Beets. Cauliflower. Cabbage. Broccoli. Carrots. Green beans. Tomatoes. Peppers. Onions. Cucumbers. [place]coa sprouts. Grains Whole grains, such as whole-wheat [...] Do I need to meet with a special educator? Do I need to meet with a dietitian? What number can I call if I have questions? When are the best times to check my blood glucose? Where to find more information: ??? [place] Diabetes Association: diabetes.org ??? Academy of Nutrition and Dietetics: www.eatright.org ??? National [place] of Diabetes and Digestive and Kidney Diseases: [...] provider. Document Revised: 10/15/2020 Document Reviewed: 10/15/2020 [employer] Patient Education ? 2020 [employer]. Hematology Warfarin Coagulopathy Warfarin coagulopathy refers [...] stopping any new medicines. Many prescription and uesu-ogw-pkpzavb medicines can interfere with warfarin. This includes kues-qcr-blzsfus vitamins, dietary supplements, herbal medicines, and pain [...] Preventing bleeding and injury ??? Some common saff-ooi-nidjgcs medicines and supplements may increase the risk [...] diet. ??? You start or stop any zvco-yll-lwlszau medicine, prescription medicine, or dietary supplement. ??? [...] provider. Document Revised: 10/21/2018 Document Reviewed: 01/26/2018 [employer] Patient Education ? 2020 [employer]. Infectious Disease Bacteremia, Adult Bacteremia is [...] these instructions at home: Medicines ??? Take mbab-xpf-ritobbr and prescription medicines only as told by [...] and water are not available, use hand gore seamer. ??? You should wash your hands: ? [...] care provider. ??? Practice good oral hygiene. [place]hen your teeth two times a day, and [...] provider. Document Revised: 03/29/2020 Document Reviewed: 03/29/2020 [employer] Patient Education ? 2020 [employer]. Nephrology Acute Kidney Injury, Adult Acute kidney [...] these instructions at home: Medicines ??? Take amvd-fgy-zyxwhcd and prescription medicines only as told by [...] important. Where to find more information ??? [place] Association of Kidney Patients: www.aakp.org ??? National Kidney Foundation: www.kidney.org ??? [employer] Kidney Fund: www.akfinc.org ??? [employer] Rehabilitation [...] provider. Document Revised: 09/17/2020 Document Reviewed: 09/17/2020 [employer] Patient Education ? 2020 [employer]. Chronic Kidney Disease, Adult Chronic kidney disease [...] these instructions at home: Medicines ??? Take uhyq-opy-qmvfehx and prescription medicines only as told by [...] provider. Document Revised: 10/21/2018 Document Reviewed: 12/13/2017 [employer] Patient Education ? 2020 [employer]. Pharmacology Vitamin K Foods and Warfarin Warfarin [...] cup (78 g) has 110 mcg. ??? Alcoa sprouts (cooked from fresh) ? ? cup [...] cup (90 g) has 444 mcg. ??? Macedonian chard (cooked from fresh) ? ? cup [...] cup (54 g) has 8 mcg. ??? [place] with peel (raw) ? ? cup (52 g) has 9 mcg. ??? Grapes ? ? cup (76 g) has 12 mcg. ??? [place] ? 1 medium (207 g) has 9 [...] provider. Document Revised: 08/27/2020 Document Reviewed: 08/27/2020 [employer] Patient Education ? 2020 [employer]. Aspirin and Your Heart Aspirin is [...] The two forms of aspirin are: ? Ucn-obamyas-fyzgyw.This type of aspirin does not have a coating and is absorbed quickly. This type of aspirin also comes in a chewable form. ? Enteric-coated. This type of aspirin has a coating that releases the medicine very slowly. Enteric-coated aspirin might cause less stomach upset than igg-iyrjcgj-sftcem aspirin. This type of aspirin should not [...] these instructions at home Medicines ??? Take ivui-giu-zolckvd and prescription medicines only as told by [...] Where to find more information ??? The [place] Heart Association: www.heart.org Contact a health care [...] on filedocumented in this encounter Care Teams Routing Clerk Relationship Specialty Start Date End Date Reji Castro MD [address] [place] [address] PCP - General Adolescent Medicine 10/02/22 documented as of this encounter
--- OUTSIDE RECORDS SUMMARY | 2025-06-13 13:02 | XMS_ITS | Encounter Summary ---
Author Organization [employer] ([place], [place], [place], [place]) Address [address] [place] [address] Care Team Providers Care Fruit Farmer Name Role Phone Reji Castro MD Primary Care Provider [phone] Encounter Details Date Type Department Care Team (Late st Contact Info) Description 08/18/2021 Transcribed Document [facility] Radiology [address] [place] [address] Loren Solorzano MD [address] [place] [address] [place] [address] Social History Tobacco Use Types Packs/Day Years [...] Bioprosthetic mitral valve replacement / SNOMED CT 352464222 / Confirmed Chronic kidney disease / SNOMED CT 6743770647 / Confirmed COPD - Chronic obstructive pulmonary disease / SNOMED CT 990752036 / Confirmed History of obstructive sleep apnea / IMO 12853325 / Confirmed HLD - Hyperlipidemia / SNOMED CT 349698274 / Confirmed HTN - Hypertension / SNOMED CT 5395105540 / Confirmed Canceled: Atrial fibrillation / SNOMED CT 41150046, Active Problems (25) AIHA (autoimmune hemolytic anemia) [...] 18:12) 98.2 (AUG 17:) Apical HR 75 ([facility] 20:10) 75 ([facility] 20:10) 75 ([facility] 20:10) Mon HR 63 (AUG 18 06:) 63 (AUG 18 06:29) 84 ([facility] 18:12) Resp Rate 18 (AUG 18 06:) 16 (AUG 17 22:27) 18 (AUG 18 06:29) SBP 105 (AUG 18 06:29) 101 (AUG 17 22:27) 107 ([facility] 02:02) DBP L 53 (AUG 18 06:29) L 45 (AUG 17 18:12) 61 (AUG 17 22:27) MAP 77 (AUG 18 06:29) 70 ([facility] 18:12) 78 ([facility] 22:27) SpO2 95 (AUG 18 06:29) L [...] 50 mL 700 mg, IV Piggyback, Inj, A71CXas, infuse over 30 Minute(s), Routine, Start 08/14/21 21:00:00 EDT, 128 mL/Hr, Indication: Endocarditis LISA RICKETTS MD-INF ferrous gluconate 324 mg, Oral, Tab, Daily, Start 08/12/21 9:00:00 EDT SIERRA MONTGOMREY MD-NEP Impression and Plan # MSSA bacteremia [...] Hold home meds SSI #Depression Celexa #Pain [place] 10 mg every 6 hours as needed [...] on filedocumented in this encounter Care Teams Fruit Farmer Relationship Specialty Start Date End Date Reji Castro MD [address] [place] [id number] PCP - General Adolescent Medicine 10/02/22 documented as of this encounter
--- OUTSIDE RECORDS SUMMARY | 2025-06-13 13:02 | XMS_ITS | Encounter Summary ---
Author Organization [employer] ([place], [place], [place], [place]) Address [address] [place] [address] Care Team Providers Care Dentures Lab Technician Name Role Phone Reji Castro MD Primary Care Provider + [phone] Encounter Details Date Type Department Care Team (Late st Contact Info) Description 08/18/2021 Transcribed Document [facility] [place] [facility] [place] [address] ProviderDelvin MD [address] [place] [address] [phone] Social History Tobacco Use Types Packs/Day Years [...] # 0.52 x10(3)/uL (Low) 08/18/2021 06:56 EDT [place] % 8.7 % 08/18/2021 06:56 EDT [place] # 0.61 K/uL 08/18/2021 06:56 EDT Eos [...] (High) 08/18/2021 06:56 EDT Electronically signed by [facility] Conversion Relations Liaison Cerner at 03/09/2023 9:00 PM CDT documented in this encounter Plan of Treatment Not on file documented as of this encounter Visit Diagnoses Not on filedocumented in this encounter Care Teams Dentures Lab Technician Relationship Specialty Start Date End Date Reji Castro MD [address] [place] [id number] PCP - General Adolescent Medicine 10/02/22 documented as of this encounter
--- OUTSIDE RECORDS SUMMARY | 2025-06-13 13:02 | XMS_ITS | Encounter Summary ---
Author Organization [employer] ([place], [place], [place], [place]) Address [address] [place] [address] Care Team Providers Care Merchandising Internship Name Role Phone Reji Castro MD Primary Care Provider + [phone] Encounter Details Date Type Department Care Team (Late st Contact Info) Description 08/18/2021 Transcribed Document [facility] [place] Family Medicine [address] [place] [address] ProviderDelvin MD [address] [place] [address] [phone] Social History Tobacco Use Types Packs/Day Years [...] 15:44 EDT by MADINA LOVETT RN - Septic CleanerAquatic Laborer Progress Note Discharge Arrangements : Patient Post-Acute [...] Rounds? : Yes MADINA LOVETT, RN - Septic Cleaner - 08/18/2021 15:44 EDT Narrative Progress Note [...] will need home health and lives in [place]. [facility] home health is a possibility. CM will [...] and send referrals as appropriate. JULIO STEWART, RN-Septic Cleaner ED - 08/18/21 10:38:39 MADINA LOVETT, JEREMIAH - Septic Cleaner - 08/18/2021 15:44 EDT Electronically signed by [facility] Lead Psychologist Cerner at 03/09/2023 8:49 PM CDT documented in this encounter Plan of Treatment Not on file documented as of this encounter Visit Diagnoses Not on filedocumented in this encounter Care Teams Merchandising Internship Relationship Specialty Start Date End Date Reji Castro MD [address] [place] [id number] PCP - General Adolescent Medicine 10/02/22 documented as of this encounter
--- OUTSIDE RECORDS SUMMARY | 2025-06-13 13:02 | XMS_ITS | Encounter Summary ---
Author Organization [employer] ([place], [place], [place], [place]) Address [address] [place] [address] Care Team Providers Care Lead Burner Apprentice Name Role Phone Reji Castro MD Primary Care Provider + [phone] Encounter Details Date Type Department Care Team (Late st Contact Info) Description 08/13/[address] [facility] [place] Family Medicine [address] [place] [address] ProviderDelvin MD [address] [place] [address] [phone] Social History Tobacco Use Types Packs/Day Years [...] Performed On: 08/13/2021 15:06 EDT by FAIZA ARZIA General Information, Spiritual Care Intervention/Comment/Summary Points : PreSurgery visit; [facility] a significant resource for Ms. Costa; She expressed gratitude for visit HEADFAIZA - 08/13/2021 16:15 EDT documented in this encounter Plan of Treatment Not on file documented as of this encounter Visit Diagnoses Not on filedocumented in this encounter Care Teams Lead Burner Apprentice Relationship Specialty Start Date End Date Reji Castro MD [address] [place] [id number] PCP - General Adolescent Medicine 10/02/22 documented as of this encounter
--- OUTSIDE RECORDS SUMMARY | 2025-06-13 13:02 | XMS_ITS | Encounter Summary ---
Author Organization [employer] ([place], [place], [place], [place]) Address [address] [place] [address] Care Team Providers Care Pastoral Counselor Name Role Phone Reji Castro MD Primary Care Provider + [phone] Encounter Details Date Type Department Care Team (Late st Contact Info) Description 08/13/2021 Transcribed Document [facility] [place] [facility] [place] [address] ProviderDelvin MD [address] [place] [address] [phone] Social History Tobacco Use Types Packs/Day Years [...] port could not be accessed. Her medical technologist prn aspirated fluid from the port that was evidently purulent. I have not yet been able to track down that culture. After the aspiration she developed fever to 103, severe CHEUNG, myalgias and arthralgias. She was admitted to [facility]. 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 Integumentary: Warm, [place]. Neurologic: Alert, Oriented, No focal deficits. Psychiatric: [...] recommend therapy to 09/[address] [facility] Conversion Correspondent Cerner at 03/09/2023 8:46 PM CDT documented in this encounter Plan of Treatment Not on file documented as of this encounter Visit Diagnoses Not on filedocumented in this encounter Care Teams Pastoral Counselor Relationship Specialty Start Date End Date Reji Castro MD [address] [place] [address] PCP - General Adolescent Medicine 10/02/22 documented as of this encounter
--- OUTSIDE RECORDS SUMMARY | 2025-06-13 13:02 | XMS_ITS | Encounter Summary ---
Author Organization [employer] ([place], [place], [place], [place]) Address [address] [place] [address] Care Team Providers Care Tobacco Stripper Name Role Phone Reji Castro MD Primary Care Provider + [phone] Encounter Details Date Type Department Care Team (Late st Contact Info) Description 08/27/2021 Transcribed Document [facility] [place] [address] [place] [address] ProviderDelvin MD [address] [place] [address] [phone] Social History Tobacco Use Types Packs/Day Years [...] 3:29 EDT Electronically signed by L[facility] Conversion Sql Tech Cerner at 03/09/2023 8:34 PM CDT documented in this encounter Plan of Treatment Not on file documented as of this encounter Visit Diagnoses Not on filedocumented in this encounter Care Teams Tobacco Stripper Relationship Specialty Start Date End Date Reji Castro MD [address] [place] [id number] PCP - General Adolescent Medicine 10/02/22 documented as of this encounter
--- OUTSIDE RECORDS SUMMARY | 2025-06-13 13:02 | XMS_ITS | Clinical Summary ---
Author Organization [facility] Address [address] [facility] [facility] [address] [place] [address] Phone Care Team Providers Care Animal Sticker Name Role Phone Joan Moore MD [phone] [ ] Conditions or Problems Problem Name Problem Code Onset Date Status Entry Date Provider Comment Standard Description Annotate Bloodstream infection due to port, subsequent encounter(s) T80.211D (ICD-10-CM) Active 0 Lisa Torres Bloodstream infection due to central venous catheter, subsequent encounter Coag-negative staph sepsis/septic meia A41.1 (ICD-10-CM) Active 0 Lisa Torres Sepsis due to other specified staphylococcus Autoimmune hemolytic anemia, unspecified 921152712 (SNOMED CT) Active 0 Lisa Torres Autoimmune hemolytic anemia COPD 65300403 (SNOMED CT) Active 0 Lisa Torres Chronic obstructive pulmonary disease Presence of prosthetic heart valve Z95.2 (ICD-10-CM) Active 0 Lisa Torres Presence of prosthetic heart valve HTN CKD, bgn, 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 Provider CEFTRIAXONE SODIUM 1 GM SOLR 2gm IV Q 24hrs through 09/08 [employer] [phone] ceftriaxone 82729982255 [place] LEVOTHYROXINE SODIUM 25 MCG TABS TAKE 1 TABLET BY MOUTH DAILY levothyroxine 15269224712 Belkis Mattson BUMETANIDE 2 MG TABS bumetanide 90243864207 Belkis Mattson DEXILANT 60 MG CPDR dexlansoprazole 05856594475 Belkis Mattson OLOPATADINE HCL 0.2 % SOLN olopatadine 62282228465 Belkis Mattson ALPRAZOLAM 0.5 MG TABS alprazolam 29225639142 Belkis Mattson WARFARIN SODIUM 4 MG TABS warfarin 48099831138 Belkis Mattson SPIRONOLACTONE 25 MG TABS TAKE 1 TABLET BY MOUTH ONCE A DAY. spironolactone 49586619486 Belkis Mattson FOLIC ACID 1 MG TABS TAKE 1 TABLET BY MOUTH ONCE A DAY. folic acid 81811320099 Belkis Mattson RAMY ASPIRIN EC LOW DOSE 81 MG TBEC aspirin 10190679366 Belkis Mattson CELEXA 40 MG TABS citalopram 16481579013 Belkis Mattson docusate sodium unspecified unspecified docusate sodium 59648842549 Angelita Mattson FAMOTIDINE 20 MG TABS famotidine 97628246304 Belkis Mattson PERCOCET 10-325 MG TABS oxycodone-acetam i nophen 43966094391 Belkis Mattson TOPROL XL 25 MG [id number] metoprolol succinate 89902234876 Belkis Mattson CEFTRIAXONE SODIUM 1 GM SOLR 2gm IV Q 24hrs through 09/08 HH [facility] HH [phone] ceftriaxone 04211640814 [facility] Medications Administered No information available. Allergies, [...]
--- OUTSIDE RECORDS SUMMARY | 2025-06-13 13:02 | XMS_ITS | Encounter Summary ---
Author Organization [employer] ([place], [place], [place], [place]) Address [address] [place] [address] Care Team Providers Care Business Banking Relationship Manager Name Role Phone Reji Castro MD Primary Care Provider + [phone] Encounter Details Date Type Department Care Team (Late st Contact Info) Description 08/18/2021 Transcribed Document [facility] [place] [address] [place] [address] ProviderDelvin MD [address] [place] [address] [phone] Social History Tobacco Use Types Packs/Day Years [...] filedocumented in this encounter Care Teams Business Banking Relationship Manager Relationship Specialty Start Date End Date Reji Castro MD [address] [place] [address] PCP - General Adolescent Medicine 10/02/22 documented as of this encounter
--- OUTSIDE RECORDS SUMMARY | 2025-06-13 13:02 | XMS_ITS | Encounter Summary ---
Author Organization [employer] ([place], [place], [place], [place]) Address [address] [place] [address] Care Team Providers Care Brake Repairer Air Name Role Phone Reji Castro MD Primary Care Provider [phone] Encounter Details Date Type Department Care Team (Late st Contact Info) Description 08/23/[address] [facility] Radiology [address] [place] [address] Loren Solorzano MD [address] [place] [address] [place] [address] Social History Tobacco Use Types Packs/Day Years [...] cefTRIAXone: 2 Gram, 100 mL/Hr, IV Piggyback, [id number] diphenhydrAMINE: 25 mg, Oral, Q6H, PRN: Itching [...] Oral, BID cefTRIAXone 2 Gram, IV Piggyback, M31GBpn citalopram 20 mg tab 40 mg 2 [...] Bioprosthetic mitral valve replacement / SNOMED CT 461734460 / Confirmed Chronic kidney disease / SNOMED CT 2660213511 / Confirmed COPD - Chronic obstructive pulmonary disease / SNOMED CT 889252062 / Confirmed History of obstructive sleep apnea / IMO 67372192 / Confirmed HLD - Hyperlipidemia / SNOMED CT 062794336 / Confirmed HTN - Hypertension / SNOMED CT 1745132179 / Confirmed Canceled: Atrial fibrillation / SNOMED CT 89492238, Active Problems (25) AIHA (autoimmune hemolytic anemia) [...] 26.0 \ Radiology Results (Last 48 hours) [id number] -- 08/11/2021 21:21 CR Chest 1 Vw [...] Hold home meds SSI #Depression Celexa #Pain [place] 10 mg every 6 hours as needed CODE STATUS. Full code Dispo: Given patient with history of multiple transfusion we will keep patient in the hospital on heparin drip and Coumadin till INR therapeutic need IV abx, at least until 09/08. Discussed with mattress spring encaser. and pharmcy Time spent 25 minutes documented in this encounter Plan of Treatment Not on file documented as of this encounter Visit Diagnoses Not on filedocumented in this encounter Care Teams Brake Repairer Air Relationship Specialty Start Date End Date Reji Castro MD [address] [place] [id number] PCP - General Adolescent Medicine 10/02/22 documented as of this encounter
--- OUTSIDE RECORDS SUMMARY | 2025-06-13 13:02 | XMS_ITS | Encounter Summary ---
Author Organization [employer] ([place], [place], [place], [place]) Address [address] [place] [address] Care Team Providers Care Supervisor Real Estate Office Name Role Phone Reji Castro MD Primary Care Provider + [phone] Encounter Details Date Type Department Care Team (Late st Contact Info) Description 08/17/2021 Transcribed Document [facility] [place] [address] [place] [address] ProviderDelvin MD [address] [place] [address]7031 Social History Tobacco Use Types Packs/Day Years [...] filedocumented in this encounter Care Teams Supervisor Real Estate Office Relationship Specialty Start Date End Date Reji Castro MD [address] [place] [address] PCP - General Adolescent Medicine 10/02/22 documented as of this encounter
--- OUTSIDE RECORDS SUMMARY | 2025-06-13 13:02 | XMS_ITS | Encounter Summary ---
Author Organization [employer] ([place], [place], [place], [place]) Address [address] [place] [address] Care Team Providers Care Garment Supervisor Name Role Phone Reji Castro MD Primary Care Provider + [phone] Encounter Details Date Type Department Care Team (Late st Contact Info) Description 08/13/2021 Transcribed Document [facility] [place] [address] ProviderDelvin MD [address] [place], [place] [id number] Social History Tobacco Use Types Packs/Day Years [...] On: 08/13/2021 7:24 EDT by Marline Leija, Vp Integration Primary Insurance Authorization Authorization and Policy Numbers : Insurance 1 Health Plan: [employer] CHO[employer] PPO Policy Number: [id number] Authorization Number: Insurance 2 Health Plan: [place] Policy Number: [id number] Authorization Number: Insurance Primary Name : [employer] CHOICE PPO Policy Number: [id number] Authorization Status-Primary : Notification only Reference Number-Primary : [id number] Authorization Number-Primary : [id number] Authorized Service Begin Date-Primary : 08/11/2021 EDT Authorization Comments-Primary : Authorized per email from Khari Catron, RN. Historical Authorization Comments-Primary : Comment 1: Pend ref no per Availity, reviewer has access to [employer] (JORGE VALLES RN 08/12/2021 14:07) Marline Lejia, Vp Integration - 08/13/2021 7:24 EDT Electronically signed by Lanny [facility] Conversion Carpet Inspector Finished Cerner at 03/09/2023 8:49 PM CDT documented in this encounter Plan of Treatment Not on file documented as of this encounter Visit Diagnoses Not on filedocumented in this encounter Care Teams Garment Supervisor Relationship Specialty Start Date End Date Reji Castro MD [address] [place] [address] PCP - General Adolescent Medicine 10/02/22 documented as of this encounter
--- OUTSIDE RECORDS SUMMARY | 2025-06-13 13:02 | XMS_ITS | Clinical Summary ---
Author Organization [facility] Address [address] [place] [address] Care Team Providers Care Patient Assistant Name Role Phone Reji Castro MD Primary Care Provider [phone] Allergies Active Allergy Reactions Criticality Noted Date [...] (one) time each day. Active Continuous Glucose Awning Hanger Supervisor (FreeStyle Gerson 14 Day [place]on) device use as directed 4 Active Continuous [...] Description 05/23/2025 Community Orders [facility] [address] [place] [address] Reji Castro MD Stage 3b chronic kidney disease (CMS/HCC) (Primary Dx) 05/18/2025 Telephone [facility] [place] [address] [facility] 1st Floor [address] [place] [address] Alysha Maloney 05/17/2025 Telephone [facility] [place] [address] [facility] 1st [address] [place] [address] Alysha Maloney 05/07/2025 Orders Only External Location [address] [place] [address] Provider, External 05/07/2025 Orders Only External Location [address] [place] [address] Provider, External from Last 3 Months Immunizations [...] place to sleep or slept in a longterm (including now)? No 11/19/2023 Utilities Answer Date [...] Description 06/25/2025 1:40 PM EDT Office Visit [facility]ph[facility], Bone & Mineral Metabolism [address], [address] [place] [address] 06/26/2025 10:30 AM EDT Appointment Cardiac Imaging [address] [place] [address] 06/26/2025 1:00 PM EDT Appointment [facility] Radiology [address] [place] [address] Health Maintenance Due Date Last Done Comments [...] 2013 UKY-Zoster Vaccines (1 of 2) 2013 RIQ-RSTHP-87 Vaccine (3 - Moderna risk series) 03/24/2021 [...] on patient's age to complete this topic Medical Devices Implanted Type Area Real Estate Branch Manager Device Identifier Shelf Expiration Date Model / Serial / Lot Olive Hf Weldon In Flight Refueling Craftsman-07/11/2024 Implanted:06/23 (Quantity not on file) COST CONTROL SUPERVISOR-D ICD Chest Wall AuthorBee [id number] / [id number] / Description:Entire Weldon CR T system implanted on 07/11/2024: Atrial Lead Model: 2088TC/46, Serial Number: [id number], TENDRIL STS RV LEAD MODEL: [id number], Serial Number: [id number], Optisure LV LEAD MODEL: 1458Q/86, Serial Number: [id number], Quartet Cardiomems Pa Sensor-06/03/20 18 Implanted:05/22 by Tod Sawyer MD (Quantity not on file) Implant Chest AuthorBee [id number] / [id number] / 29mm Mitral Masters Series Valve- 6 Implanted:12/24 (Quantity not on file) Valve Heart St [employer] [id number] / [id number] / Procedures Procedure Name Priority Date/Time Associated Diagnosis [...] Negron MD LAB BLOOD ORDERABLES Final Result [facility] [address] [place] [address] * Hepatitis C Antibody - ED (12/15/2024 8:10 PM EST) Hepatitis C Antibody Negative Negative 12/15/2024 9:33 PM EST [facility] Blood Venous blood specimen / Unknown Venipuncture / Unknown 12/15/2024 8:10 PM EST 12/15/2024 8:52 PM EST us Elijah Negron MD LAB BLOOD ORDERABLES Final Result Performing Organization Address City/[facility] Co de Phone Number [facility] [address] [place] [address] * (ABNORMAL) Hemoglobin A1c (11/20/2023 2:15 AM [...] Adults <6.0% Children and Adolescents <7.5% Source: [place] Diabetes Association. Standards of medical care in diabetes,2017. Diabetes Care.2017:40 (suppl 1):S1-S135. HbA1c assay performed by an ion-exchange chromatography method that is certified traceable to the DCCT. us Alannah Conti APRN LAB BLOOD ORDERABLES Final Re sult Performing Organization Address City/[facility] Co de Phone Number [facility] [address] [place] [address] from Last 3 Months or Most Recently Relevant to Health Maintenance Insurance [facility] MEDICARE Advance Directives * Full Code (Latest Code Status on File) Date Activated Date Inactivated Comments 11/18/2023 5:56 PM 11/24/2023 4:04 PM Question Answer Comments Patient has decision-making capacity? Yes Care Teams Patient Assistant Relationship Specialty Start Date End Date Reji Castro MD [address] [place] [address] [place] [address] PCP - General Internal Medicine 12/08/23
--- OUTSIDE RECORDS SUMMARY | 2025-06-13 13:02 | XMS_ITS | Encounter Summary ---
Author Organization [employer] ([place], [place], [place], [place]) Address [address] [place] [address] Care Team Providers Care Hadoop Administrator Name Role Phone Reji Castro MD Primary Care Provider + [phone] Encounter Details Date Type Department Care Team (Late st Contact Info) Description 08/13/2021 Transcribed Document [facility] [place] Family Medicine [facility] [place] [address] ProviderDelvin MD [address] [place] [id number] Social History Tobacco Use Types Packs/Day Years [...] 180 units of blood due to anemia[facility]. [...] these transfusions about 3 years ago at [facility]. Last month she developed fever, headache, nausea, and was admitted to [facility]. CHUCHO/TTE at that time showed possible bacteria on the tip of her port. She was treated with PO antibiotics with resolution of symptoms and was discharged home with no plans for port removal. She reports a few days ago she again had headache and nausea, this time without fever. She presented to the emergency department at [facility] with blood cultures drawn which were supposedly positive for staph epi. She was subsequently told to come to [facility] ED for ID consultation. Review of [...] fibrillation 5. Diabetes mellitus type II 6. intermission coordinator current use of anticoagulant At risk for [...] Diagnostic Results Radiology Results (Last 48 hours) [id number] -- 08/11/2021 21:21 CR Chest 1 Vw [...] Electronically signed by [facility] Conversion Linux Kernel Developer Cerner at 03/09/2023 8:43 PM CDT documented in this encounter Plan of Treatment Not on file documented as of this encounter Visit Diagnoses Not on filedocumented in this encounter Care Teams Hadoop Administrator Relationship Specialty Start Date End Date Reji Castro MD [address] [place] [address] PCP - General Adolescent Medicine 10/02/22 documented as of this encounter
--- OUTSIDE RECORDS SUMMARY | 2025-06-13 13:02 | XMS_ITS | Encounter Summary ---
Author Organization [employer] ([place], [place], [place], [place]) Address [address] [place] [address] Care Team Providers Care Delivery Person Name Role Phone Reji Tovar MD Primary Care Provider + [phone] Encounter Details Date Type Department Care Team (Late st Contact Info) Description 08/27/2021 Transcribed Document [facility] [place] [address] [place] [address] ProviderDelvin MD [address] [place] [address] Social History Tobacco Use Types Packs/Day [...] Celestin MD - 08/27/2021 1:31 PM CDT [facility] [address] IRINA TAMAYO :1965 Visit Time:08/11/2021 Your [...] Dr. Sawyer's office directly. Where: [address] [facility] [address] [place] [address]- Follow Up with LISA RICKETTS When 09/03/2021 10:45 AM EDT Comments Hospital follow up appointment has been made. Please arrive 15 minutes early to the appointment. If you need to reschedule, please contact [place] [facility] directly. Where: [address] [facility] [address] [place] [address]- Business (1) Follow Up with NENA PEARSON MD-[facility] When Within 1 week Comments [facility] will contact you with appointment date and time. Where: [address] [facility] [address] [place] [address] Follow Up with REJI TOVAR (REFMD Zully-[facility] When Within 5 to 7 days Comments [facility] will contact you with appointment date and time. Where: [address] [place] [address]- Follow Up with JERRELL GONZALEZ When Within 2 weeks Comments The [facility] will contact you with appointment date and time. Where: Warfarin Instructions Indication for Warfarin Anticoagulation: Atrial fibrillation Indication for Warfarin Anticoagulation: Atrial fibrillation Warfarin Anticoagulation Disposition: Continuation of pre-hospital treatment Warfarin Anticoagulation Disposition: Continuation of pre-hospital treatment Duration Warfarin Therapy, Detention: Yes Target INR: 2.5 - 3.5 Physician [...] REDUCTION to 25mg daily Pickup at [facility] spironolactone (spironolactone 25 mg oral tablet) 1 Tablet(s) Oral Every Day Please note: Dose REDUCTION to 1 tablet daily warfarin (Coumadin 4 mg oral tablet) 2 Tablet(s) Oral Every Day Please note: Dose INCREASE Pickup at [facility] acetaminophen-oxyCODONE (Percocet 10/ 325 [...] Eyes Both Every Day Pharmacy Information [facility]: [address] [place] [phone] Take your medications faithfully. Do NOT skip [...] these instructions at home: Medicines ??? Take oxix-uzz-ymmkuhr and prescription medicines only as told by [...] and water are not available, use hand displayer. ??? You should wash your hands: ? [...] care provider. ??? Practice good oral hygiene. [place] your teeth two times a day, and [...] provider. Document Revised: 03/29/2020 Document Reviewed: 03/29/2020 [employer] Patient Education ?? 2020 [employer]. Warfarin Coagulopathy Warfarin coagulopathy refers to bleeding [...] stopping any new medicines. Many prescription and sfll-mrj-tbydbiq medicines can interfere with warfarin. This includes qosg-bsg-ygpdpsq vitamins, dietary supplements, herbal medicines, and pain [...] that you work with a diet and cash reconciliation specialist (dietitian). ??? Vitamin K makes warfarin [...] Preventing bleeding and injury ??? Some common myto-sct-pbilcfb medicines and supplements may increase the risk [...] diet. ??? You start or stop any oxav-svc-dxnusnx medicine, prescription medicine, or dietary supplement. ??? [...] Reviewed: 01/26/2018 Elsevier Patient Education ?? 2020 [employer] Inc. Vitamin K Foods and Warfarin Warfarin [...] before making changes. ??? Work with a cash reconciliation specialist (dietitian) to develop a meal plan that works best for you. What foods are high in vitamin K? Foods that are high in vitamin K contain more than 100 mcg (micrograms) per serving. These include: ??? Broccoli (cooked from fresh) ? cup (78 g) has 110 mcg. ??? [place] sprouts (cooked from fresh) ? cup (78 [...] cup (90 g) has 444 mcg. ??? New Zealander chard (cooked from fresh) ? cup (88 [...] cup (54 g) has 8 mcg. ??? Chula with peel (raw) ? cup (52 g) has 9 mcg. ??? Grapes ? cup (76 g) has 12 mcg. ??? Foxfire ??? 1 medium (207 g) has 9 [...] Reviewed: 08/27/2020 Elsevier Patient Education ?? 2020 [employer]. Implanted Port Home Guide An implanted [...] implanted port has two main parts: ??? [place]. The reservoir is the part where a [...] water are not available, use alcohol-based hand displayer. ? Change your dressing as told by [...] provider. Document Revised: 03/01/2020 Document Reviewed: 12/11/2017 [employer] Patient Education ?? 2020 [employer]. Acute Kidney Injury, Adult Acute kidney injury [...] these instructions at home: Medicines ??? Take mblf-hyd-nmhtqdn and prescription medicines only as told by [...] important. Where to find more information ??? [place] Association of Kidney Patients: www.aakp.org ??? National Kidney Foundation: www.kidney.org ??? [place] Kidney Fund: www.akfinc.org ??? [employer] [facility] [...] provider. Document Revised: 09/17/2020 Document Reviewed: 09/17/2020 [employer] Patient Education ?? 2020 [employer]. Chronic Kidney Disease, Adult Chronic kidney disease [...] these instructions at home: Medicines ??? Take znqz-rzc-jnjjurz and prescription medicines only as told by [...] provider. Document Revised: 10/21/2018 Document Reviewed: 12/13/2017 [employer] Patient Education ?? 2020 Elsevier Inc. Implanted [...] implanted port has two main parts: ??? [place]. The reservoir is the part where a [...] water are not available, use alcohol-based hand displayer. ? Change your dressing as told by [...] provider. Document Revised: 03/01/2020 Document Reviewed: 12/11/2017 [employer] Patient Education ?? 2020 [employer]. Atrial Fibrillation Atrial fibrillation is a type [...] the heart. ??? An ambulatory environmental monitoring technician to record your heart's activity for [...] provider. Document Revised: 05/01/2020 Document Reviewed: 05/01/2020 [employer] You [employer] Patient Education ?? 2020 [employer]. Aspirin and Your Heart Aspirin is [...] filedocumented in this encounter Care Teams Delivery Person Relationship Specialty Start Date End Date Reji Tovar MD [address] [place] [address] PCP - General Adolescent Medicine 10/02/22 documented as of this encounter
--- OUTSIDE RECORDS SUMMARY | 2025-06-13 13:02 | XMS_ITS | Encounter Summary ---
Author Organization [employer] ([place], [place], [place], [place]) Address [address] [place] [address] Care Team Providers Care Web Content & Social Media Manager Name Role Phone Reji Castro MD Primary Care Provider + [phone] Encounter Details Date Type Department Care Team (Late st Contact Info) Description 08/27/2021 Transcribed Document [facility] [facility] [place] [address] ProviderDelvin MD [address] [place] [id number] Social History Tobacco Use Types Packs/Day Years Used Date Smoking Tobacco: Never Assessed Comments Unknown Sex and Gender Information Value Date Recorded Sex Assigned at Not on file Legal Sex Female 4:32 PM CDT Gender Identity Not on file Sexual Orientation Not on file documented as of this encounter Miscellaneous Notes * [employer] Conversion Note - Historical ProviderMD - 08/27/2021 2:00 AM CDT Cre[employer] Details Entered On: 08/27/2021 3:29 EDT Performed [...] - 08/27/2021 3:29 EDT Electronically signed by Loki Ca Conversion President And Chief Operating Officer [employer]ner at 03/09/2023 8:53 PM CDT documented in this encounter Plan of Treatment Not on file documented as of this encounter Visit Diagnoses Not on filedocumented in this encounter Care Teams Web Content & Social Media Manager Relationship Specialty Start Date End Date Reji Castro MD [address] [place] [address] PCP - General Adolescent Medicine 10/02/22 documented as of this encounter
--- OUTSIDE RECORDS SUMMARY | 2025-06-13 13:02 | XMS_ITS | Encounter Summary ---
Author Organization [facility] Address [address] [place] [address] Care Team Providers Care Sharepoint Admin Name Role Phone Reji Castro MD Primary Care Provider [phone] Encounter Details Date Type Department Care Team (Late st Contact Info) Description 05/07/2025 Orders Only External Location [address] [place] [address] Provider, External Social History Tobacco Use Types [...] 1:40 PM EDT Office Visit [facility] Mineral Metabolism [address] [facility], [address] [place] [address] 06/26/2025 10:30 AM EDT Appointment Cardiac Imaging [address] [place] [address] 06/26/2025 1:00 PM EDT Appointment [facility] Radiology [address] [place] [address] documented as of this encounter Procedures Procedure Name Priority Date/Time Associated Diagnosis Comments CT THORACIC OUTSIDE IMAGES 05/07/2025 2:32 PM EDT documented in this encounter Results * CT THORACIC OUTSIDE IMAGES (05/07/2025 2:32 PM EDT) Anatomical Region Laterality Modality Computed Tomogra phy 05/07/2025 2:32 PM EDT External Provider IMG CT PROCEDURES Final Result documented in this encounter Visit Diagnoses Not on filedocumented in this encounter Additional Health Concerns Assessment Noted Time A fall risk assessment has been complete d for the patient 12/08/2023 10:42 AM EST A Body Mass Index follow-up plan has been documented for the patient 01/29/2025 12:26 PM EDT documented as of this encounter Care Teams Sharepoint Admin Relationship Specialty Start Date End Date Reji Castro MD [address] [place] [address] PCP - General Internal Medicine 12/08/23 documented as of this encounter
--- OUTSIDE RECORDS SUMMARY | 2025-06-13 13:02 | XMS_ITS | Encounter Summary ---
Author Organization [employer] ([place], [place], [place], [place]) Address [address] [place] [address] Care Team Providers Care Multi Slide Machine Tender Name Role Phone Reji Castro MD Primary Care Provider + [phone] Encounter Details Date Type Department Care Team (Late st Contact Info) Description 08/18/2021 Transcribed Document [facility] [place] [address] ProviderDelvin MD [address] [place] [id number] Social History Tobacco Use Types Packs/Day Years [...] Warfarin HPI: 56 y/o F presenting to [facility] with history of COPD, atrial fibrillation, CKD [...] Thank you, Andrea Moraes, PharmD PGY1 Supervisor Fish Bait Processing Pager: [phone], Ext. [phone] documented in this encounter Plan of Treatment Not on file documented as of this encounter Visit Diagnoses Not on filedocumented in this encounter Care Teams Multi Slide Machine Tender Relationship Specialty Start Date End Date Reji Castro MD [address] [place] [address] PCP - General Adolescent Medicine 10/02/22 documented as of this encounter
--- OUTSIDE RECORDS SUMMARY | 2025-06-13 13:03 | XMS_ITS | Encounter Summary ---
Author Organization [employer] ([place], [place], [place], [place]) Address [address] [place] [address] Care Team Providers Care Assembler Adjuster Name Role Phone Reji Castro MD Primary Care Provider + [phone] Encounter Details Date Type Department Care Team (Late st Contact Info) Description 08/17/2021 Transcribed Document [facility] [facility] [place] [address] ProviderDelvin MD [address] [place] [id number] Social History Tobacco Use Types Packs/Day Years [...] 56 y/o F presenting to [facility] with history of COPD, atrial [...] mg, 14 mL, 128 mL/Hr, IV Piggyback, [id number]. diphenhydrAMINE: 50 mg, IV Push, On-CALL, PRN: [...] questions. Thank you, Andrea Moraes, PharmD PGY1 Assault Amphibious Vehicle Officer Pager: [phone], Ext. [phone] documented in this encounter Plan of Treatment Not on file documented as of this encounter Visit Diagnoses Not on filedocumented in this encounter Care Teams Assembler Adjuster Relationship Specialty Start Date End Date Reji Castro MD [address] [place] [address] PCP - General Adolescent Medicine 10/02/22 documented as of this encounter
--- OUTSIDE RECORDS SUMMARY | 2025-06-13 13:03 | XMS_ITS | Encounter Summary ---
Author Organization [employer] ([place], [place], [place], [place]) Address [address] [place] [address] Care Team Providers Care Boat Tender Name Role Phone Reji Castro MD Primary Care Provider + [phone] Encounter Details Date Type Department Care Team (Late st Contact Info) Description 08/13/2021 Transcribed Document [facility] Family Medicine [address] [place] [address] ProviderDelvin MD [address] [place] [id number] Social History Tobacco Use Types Packs/Day Years [...] On: 08/13/2021 10:20 EDT by Reina Tian, FISHER WEIR Phone Call for Consults Consult Phone Call/Page [...] Returned : 08/14/2021 10:39 EDT Reina Tian, FISHER WEIR - 08/13/2021 10:37 EDT Electronically signed by Lanny, [facility] Conversion Electric Drill Operator Cerner at 03/09/2023 8:38 PM CDT documented in this encounter Plan of Treatment Not on file documented as of this encounter Visit Diagnoses Not on filedocumented in this encounter Care Teams Boat Tender Relationship Specialty Start Date End Date Reji Castro MD [address] [place] [address] PCP - General Adolescent Medicine 10/02/22 documented as of this encounter
--- OUTSIDE RECORDS SUMMARY | 2025-06-13 13:03 | XMS_ITS | Encounter Summary ---
Author Organization [facility] Address [address] [place] [address] Care Team Providers Care Gasoline Catalyst Operator Name Role Phone Reji Castro MD Primary Care Provider [phone] Reason for Referral * Transplant (Routine) - Denied Specialty Diagnoses / Procedures Referred By Contac t Referred To Contact Transplant Diagnoses Cardiomyopathy, unspecified type (CMS/HCC) Neil Caldwell MD [facility] [place] [address] Phone: tel: fax: [facility] [address] [facility] 1st Floor [address] [place] [address] Phone: tel: fax: Referral ID Status Reason Start Date Expiration Date V isits Requested Visits Authorized [id number] Denied Specialty Services Required 05/17/2025 11/16/2026 999 0 Encounter Details Date Type Department Care Team (Late st Contact Info) Description 05/17/2025 Telephone [facility] [address] [place] [phone] Alysha Maloney [place] [phone] Social History Tobacco Use Types Packs/Day Years [...] 05/17/2025 2:55 PM EDT Referral came from [facility], Dr. Regis Caldwell to the HOLLY. Requested HOLLY cancel the Cardiology referral since I will add TXP referral. Records saved in Media by HOLLY. I will request images from [facility] Notified [facility] of new referral and TXP [facility] of patient assignment. Will proceed with scheduling once insurance is verified for MM and TXP coverage. documented in this encounter Plan of Treatment Upcoming Encounters Date Type Department Care Team (Late st Contact Info) Description 06/25/2025 1:40 PM EDT Office Visit [facility] [place] Nephrology, Bone & Mineral Metabolism [address], [address] [place] [address] 06/26/2025 10:30 AM EDT Appointment Cardiac Imaging [address] [place] [address] 06/26/2025 1:00 PM EDT Appointment [facility] [address] [place] [address] Scheduled Referrals Name Type Priority Associated Diagnoses [...] documented as of this encounter Care Teams Gasoline Catalyst Operator Relationship Specialty Start Date End Date Reji Castro MD [address] [place] [address] PCP - General Internal Medicine 12/08/23 documented as of this encounter
--- OUTSIDE RECORDS SUMMARY | 2025-06-13 13:03 | XMS_ITS | Encounter Summary ---
Author Organization [facility] Address [address] [place] [address] Care Team Providers Care Electrician Elevator Maintenance Name Role Phone Reji Castro MD Primary Care Provider [phone] Encounter Details Date Type Department Care Team (Late st Contact Info) Description 05/18/2025 Telephone [facility] [place] [facility] [address] 1st [address] [place] [phone] Alysha Maloney [place] [phone] Social History Tobacco Use Types Packs/Day Years [...] 06/25/2025 1:40 PM EDT Office Visit [facility] Nephrology, Bone & Mineral Metabolism [address], [address] [place] [address] 06/26/2025 10:30 AM EDT Appointment Cardiac Imaging [address] [place] [address] 06/26/2025 1:00 PM EDT Appointment [facility] [address] [place] [address] documented as of this encounter Visit Diagnoses Not on filedocumented in this encounter Additional Health Concerns Assessment Noted Time A fall risk assessment has been complete d for the patient 12/08/2023 10:42 AM EST A Body Mass Index follow-up plan has been documented for the patient 01/29/2025 12:26 PM EDT documented as of this encounter Care Teams Electrician Elevator Maintenance Relationship Specialty Start Date End Date Reji Castro MD [address] [place] [address] PCP - General Internal Medicine 12/08/23 documented as of this encounter
--- OUTSIDE RECORDS SUMMARY | 2025-06-13 13:03 | XMS_ITS ---
Author Organization [facility] Address [address] [place] [address] Care Team Providers Care Finance Insurance Manager Name Role Phone Reji Castro MD Primary Care Provider Transplant Episode Heart Candidate [facility] ([place], [place]) - [facility] Referred on 05/17/2025 Marked as Ineligible on 05/18/2025 Reason: Financial/Insurance Complications Heart CoordinatorMargarita Bill RN Fax: N/A Email: N/A Care Team Name Role Phone Fax Email Margarita Bill RN Operator Weapon Locating Radar [phone] N/A N/A Purnima Mathur Dural Mechanic [phone] N/A N/A Alysha Disla Vocational Rehabilitation Counselor N/A N/A N/A Neil Caldwell MD Referring Physician [phone] N/A Events Pre-Transplant Referred: 05/17/2025
--- OUTSIDE RECORDS SUMMARY | 2025-06-13 13:03 | XMS_ITS | Encounter Summary ---
Author Organization [employer] [facility] ([place], [place], [place], [place]) Address [address] [place] [address] Care Team Providers Care Roofing Subcontractor Name Role Phone Reji Castro MD Primary Care Provider [phone] Encounter Details Date Type Department Care Team (Late st Contact Info) Description 08/13/2021 Transcribed Document [facility] [place] [address] [place] [address] ProviderDelvin MD [address] [place] [address] [phone] Social History Tobacco Use Types Packs/Day Years [...] WILLIAMS HANEY RN - 08/13/2021 16:09 EDT Electronically signed by Loki Ca Conversion Industrial Safety And Health Manager Cerner at 03/09/2023 8:42 PM CDT documented in this encounter Plan of Treatment Not on file documented as of this encounter Visit Diagnoses Not on filedocumented in this encounter Care Teams Roofing Subcontractor Relationship Specialty Start Date End Date Reji Castro MD [address] [place] [address] PCP - General Adolescent Medicine 10/02/22 documented as of this encounter
--- OUTSIDE RECORDS SUMMARY | 2025-06-13 13:03 | XMS_ITS | Encounter Summary ---
Author Organization [employer] ([place], [place], [place], [place]) Address [address] [place] [address] Care Team Providers Care Director Of Dietary Name Role Phone Reji Castro MD Primary Care Provider [phone] Encounter Details Date Type Department Care Team (Late st Contact Info) Description 08/13/2021 Transcribed Document [facility] Family Medicine [facility] [place] [address] ProviderDelvin MD [address] [place] [address] [id number] Social History Tobacco Use Types Packs/Day Years [...] Encounter/Past 24 Hours) Creatinine Level 1.60 mg/dL [place] 08/13/2021 06:13 Bun/Creatinine 31.2 [place] 08/13/2021 06:13 Est. CrCl: 61 mL/min Intake [...] questions. Thank you, Andrea Moraes, PharmD PGY1 Electric Mule Driver Pager: [phone], Ext. [phone] documented in this encounter Plan of Treatment Not on file documented as of this encounter Visit Diagnoses Not on filedocumented in this encounter Care Teams Director Of Dietary Relationship Specialty Start Date End Date Reji Castro MD [address] [place] [address] PCP - General Adolescent Medicine 10/02/22 documented as of this encounter
--- OUTSIDE RECORDS SUMMARY | 2025-06-13 13:03 | XMS_ITS | Encounter Summary ---
Author Organization [facility] Address [address] [place] [address] Care Team Providers Care Office Machine Inspector Name Role Phone Reji Castro MD Primary Care Provider [phone] Reason for Referral * Consultation (Routine) - Authorized Specialty Diagnoses / Procedures Referred By Contac t Referred To Contact Nephrology Diagnoses Stage 3b chronic kidney disease (CMS/HCC) Reji Castro MD [address] [place] [address] Phone: tel: fax: [facility] Nephrology, Bone & Mineral Metabolism [address] [facility], [address] [place] [address] Phone: tel: fax: Referral ID Status Reason Start Date Expiration Date Visits Requested Visits Authorized [id number] Authorized Specialty Services Required 05/23/2025 11/22/2026 1 1 Encounter Details Date Type Department Care Team ([facility] st Contact Info) Description 05/23/2025 [facility] [address] [place] [address] Reji Castro MD [address] [place] [address] Stage 3b chronic kidney disease [...] Upcoming Encounters Date Type Department Care Team ([facility] st Contact Info) Description 06/25/2025 1:40 PM EDT Office Visit [facility] Nephrology, Bone & Mineral Metabolism [address] [facility], [address] [place] [address] 06/26/2025 10:30 AM EDT Appointment Cardiac Imaging [address] [place] [address] 06/26/2025 1:00 PM EDT Appointment [facility] [address] [place] [address] Scheduled Referrals Name Type Priority Associated Diagnoses [...] documented as of this encounter Care Teams Office Machine Inspector Relationship Specialty Start Date End Date Reji Castro MD [address] [place] [address] PCP - General Internal Medicine 12/08/23 documented as of this encounter
--- NOTE | 2025-06-13 13:04 | PC.NURSE ---
I called pt's daughter, Urszula, back to discuss code status. Kris Moore s/w her and she states she does want pt to be a FULL CODE
[2025-06-13 13:07] LABS: Hematocrit 34.3 % (37.0-47.0); Hemoglobin 10.1 g/dL (12.2-16.2); Immature Granulocytes % 0.9 %; Mean Corpuscular HGB Conc 29.4 g/dL (31.8-35.4); Mean Corpuscular Hemoglobin 27.0 pg (27.0-31.2); Mean Corpuscular Volume 91.7 fl (81-99); Nucleated Red Blood Cells % 0 %; Platelet Count 288 K/mm3 (142-424); Red Blood Count 3.74 M/mm3 (4.20-5.40); Red Cell Distribution Width-SD 70.8 fL; White Blood Count 10.5 K/mm3 (4.8-10.8)
--- NOTE | 2025-06-13 13:11 | PC.NURSE ---
Dr Sawyer at bedside
[2025-06-13 13:14] LABS: Albumin Level 4.4 g/dl (3.5-5.0); Chloride 91 mmol/L (98-107); Sodium 128 mmol/L (136-145)
[2025-06-13 13:17] LABS: Alanine Aminotransferase 23 U/L (12-78); Albumin/Globulin Ratio 1.3 (1.1-1.8); Alkaline Phosphatase 174 U/L (38-126); Anion Gap 20.7 mEq/L (5-15); Aspartate Amino Transferase 49 U/L (14-36); Bilirubin,Total 2.5 mg/dl (0.2-1.3); Blood Urea Nitrogen 56 mg/dl (7-17); Calcium 10.5 mg/dl (8.4-10.2); Carbon Dioxide 24 mmol/L (22.0-30.0); Creatinine,Serum 2.10 mg/dl (0.52-1.04); Estimated Glomerular Filt Rate 24 ml/min (>60); GFR (African American) 29 ML/MIN (>60); Globulin 3.5 g/dL (1.3-3.2); Glucose 146 mg/dl (74-100); Total Protein,Serum 7.9 g/dl (6.3-8.2)
[2025-06-13 13:18] LABS: Magnesium 2.6 mg/dl (1.6-2.3)
--- NOTE | 2025-06-13 13:21 | HMH.EDGENADL ---
Discharge Plan Disposition Patient Disposition: Admitted Condition: Critical Clinical Impressions Clinical Impression: Acute hyperkalemia, V tach, Acute and chronic respiratory failure with hypoxia, Sepsis Discharge ED Provider: Misha Quarles Adult HPI General Chief complaint: Shortness of Breath/Dyspnea Stated complaint: chest pain Time Seen by Provider: 06/13/25 13:20 History of Present Illness HPI narrative: Patient is a 60-year-old female with history of rheumatic heart disease s/p mitral valve replacement on Coumadin, DVT of left upper extremity and bilateral lower extremities currently on Coumadin. She has a history of heart failure hypertension hyperlipidemia, GI bleed. She presents today via EMS due to concerns for shortness of breath. Worsening since this morning. Turning blue. Significantly orthopneic. Related Data Home Medications ?Medication ?Instructions ?Recorded ?Confirmed oxycodone-acetaminophen 10 mg-325 1 tab PO QID PRN Pain, Moderate 05/23/18 05/29/25 mg tablet (Percocet) alprazolam 0.5 mg tablet (Xanax) 0.5 mg PO TID PRN Anxiety 11/29/19 05/29/25 levothyroxine 25 mcg tablet 25 mcg PO DAILY 06/05/21 05/29/25 insulin glargine 100 60 units SQ DAILY 02/22/22 05/29/25 unit-lixisenatide 33 mcg/mL subcutaneous pen (Soliqua 100/33) febuxostat 40 mg tablet 40 mg PO DAILY 02/09/23 05/29/25 potassium chloride 20 mEq 20 meq PO BID 04/15/23 05/29/25 tablet,extended release(part/cryst) calcitriol 0.25 mcg capsule 0.25 mcg PO DAILY 10/30/23 05/29/25 duloxetine 60 mg capsule,delayed 60 mg PO HS 03/06/24 05/29/25 release insulin glargine 100 unit/mL (3 14 unit SQ HS 01/17/25 05/29/25 mL) subcutaneous pen (Lantus Solostar U-100 Insulin) blood-glucose sensor (Dexcom G6 #1 ea 04/05/25 05/29/25 Sensor device) blood-glucose transmitter (Dexcom #1 ea 04/05/25 05/29/25 G6 Transmitter device) blood-glucose,respiratory medicine physician,cont #1 ea 04/05/25 05/29/25 (Dexcom G6 Community Support Worker) dexlansoprazole 60 mg 60 mg PO DAILY 04/05/25 05/29/25 capsule,biphase delayed release pen needle, diabetic 32 gauge x #1,200 ea 04/05/25 05/29/25 bumetanide 2 mg tablet 2 mg PO BID 05/29/25 05/29/25 spironolactone 50 mg tablet 50 mg PO BID 05/30/25 05/30/25 Previous Rx's ?Medication ?Instructions ?Recorded empagliflozin 10 mg tablet 10 mg PO DAILY #30 tabs 07/17/24 (Jardiance) warfarin 4 mg tablet 2 mg (1/2 x 4 mg) PO DAILY 30 days 01/05/25 #0 tabs amiodarone 200 mg tablet 200 mg PO DAILY #90 tabs 04/02/25 metoprolol succinate 25 mg 50 mg (2 x 25 mg) PO DAILY 30 days 04/12/25 tablet,extended release 24 hr #60 tabs metolazone 2.5 mg tablet 2.5 mg PO BID 30 days #60 tabs 06/01/25 Allergies Allergy/AdvReac Type Severity Reaction Status Date / Time codeine (CODEINE) Allergy Unknown nausea, Verified 05/29/25 13:11 swelling Corticosteroids Allergy Unknown Unknown Verified 05/29/25 13:11 (Glucocorticoids) allergy (CORTICOSTEROIDS reaction (GLUCOCORTICOIDS)) NSAIDS (Non-Steroidal Allergy Unknown Other Verified 05/29/25 13:11 Anti-Inflamma rosuvastatin (From CRESTOR) Allergy Unknown Unknown Verified 05/29/25 13:11 allergy reaction theophylline (From DAVID-DUR) Allergy Unknown Unknown Verified 05/29/25 13:11 allergy reaction allopurinol Allergy Hives Verified 05/29/25 13:11 Iodinated Contrast Media AdvReac Severe shuts Verified 05/29/25 13:11 (IODINATED CONTRAST- ORAL kidneys AND IV DYE) down and bleeding buprenorphine (From BUPRENEX) AdvReac Intermediate Nausea Verified 05/29/25 13:11 levofloxacin (From Levaquin) AdvReac Other Verified 05/29/25 13:11 lisinopril AdvReac Cough Verified 05/29/25 13:11 prednisone AdvReac Unknown Verified 05/29/25 13:11 allergy reaction sacubitril (From Entresto) AdvReac Hypotension Verified 05/29/25 13:11 valsartan (From Entresto) AdvReac Hypotension Verified 05/29/25 13:11 PFSH PFS Disclaimer: The information contained in this section may have been updated after the patient was seen, as this information can be updated by other users. 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 use of anticoagulants with INR goal of 2.5-3.5 Third degree heart block Junctional escape rhythm 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 Afib HFrEF (heart failure with reduced ejection fraction) Partial tear of tendon CHF (NYHA class III, ACC/AHA stage C) Atrial fibrillation, chronic COPD exacerbation CHF exacerbation Anemia Systolic CHF Typical angina Dyspnea Rib fracture Blood transfusion reaction Autoimmune hemolytic anemia Arthritis Hernia Sinus problem Rheumatic heart disease Hypothyroidism Polyarthralgia Pulmonary edema HLD (hyperlipidemia) HTN (hypertension) CAD (coronary artery disease) DM type 2 (diabetes mellitus, type 2) DVT (deep venous thrombosis) Cardiomyopathy Arrhythmia Liver disease Thyroid disease Valvular heart disease Hypertension Hyperlipidemia GERD (gastroesophageal reflux disease) COPD (chronic obstructive pulmonary disease) Class 1 obesity CKD (chronic kidney disease) stage 3, GFR 30-59 ml/min Coronary artery disease Congestive heart failure, NYHA class III NYHA class 3 acute on chronic systolic heart failure Diabetes mellitus Hypertensive heart disease CHF (congestive heart failure) Diastolic heart failure Tricuspid valve regurgitation Surgical History (Updated 06/02/25 @ 00:00 by Background Daemon) Presence of biventricular AICD History of mitral valve replacement with mechanical valve Mitral valve replaced History of colon resection H/O tubal ligation History of angioplasty History of renal stent History of ureteroscopy History of tubal ligation History of hernia repair History of cardiac catheterization Family History Other Breast cancer COPD (chronic obstructive pulmonary disease) Colon cancer Family history of acute heart failure Family history of hyperlipidemia Family history of hypertension Family history of myocardial infarction Hypertension Stroke Social History Smoking Status: Unknown if ever smoked smoking status stop date: 01/09/2006 quit status: quit date established second hand exposure: Yes alcohol intake: never substance use type: denies use current occupational status: retired and disabled Travel in the last 8 weeks?: None adopted: No caregiver/support person: No foster care: No household members: significant other housing: house lives independently: Yes marital status: life partner education level: college service: No prison: No current occupational exposures/hazards: No sexually active: Yes how many partners: 1 are you practicing safe sex: Yes diet: diabetic well-balanced diet: about half the time caffeine: No eating out: rarely or never during the past year weight has: remained stable bhavya/episcopal: L[employer] Day special bhavya needs: No agree to transfusion: Yes helmet use: No water heater temp set < 120 deg: Yes working smoke detector in home: Yes fire extinguisher in home: Yes carbon monox detector in home: Yes firearms in home: No do you feel safe at home: Yes victim of physical abuse: No victim of emotional abuse: No victim of sexual abuse: No would you like helpful sources: No Other Medical History Have you received the Flu Vaccine for this season: No Have you received the Pneumonia Vaccine: No ROS Obtained: Yes All systems reviewed & no additional complaints except as documented Physical Exam General General appearance: alert, in distress and obese Head Head exam: atraumatic and normocephalic Eye Eye exam: Present PERRL and EOMI ENT ENT exam: Present normal oropharynx Neck Neck exam: Present full ROM and trachea midline Chest Chest inspection: Present symmetric chest wall rise Respiratory Respiratory exam: Present normal lung sounds bilaterally and other (ronchi bilaterally); Absent stridor Cardiovascular Cardiovascular exam: Present tachycardia and irregular rhythm Abdominal Exam Abdominal exam: Present soft; Absent distention or tenderness Extremities Exam Extremities exam: Present edema (LUE and BLE) Neurological Exam Neurological exam: Present alert and oriented X3 Psychiatric Psychiatric exam: Present normal mood Skin Skin exam: Present cyanosis Medical Decision Making Medical Records Screening: Per USPSTF and CDC recommendations, given the prevalence of disease in our region, it is our hospital?s policy to screen for HIV and viral Hepatitis for all patients aged 18 and over and those with ongoing risk factors. Jeancarlos Inquiry Pt receiving controlled substance: No Vital Signs: 06/13/25 12:39 06/13/25 12:46 06/13/25 13:07 Temperature Pulse Rate 79 Pulse Rate [Left] 164 H Respiratory Rate 24 26 H 14 Blood Pressure 95/71 L 90/73 L Blood Pressure [Right Arm] 128/94 H Blood Pressure Mean [Right Arm] 105 Blood Pressure Source [Right Arm] Automatic Cuff Blood Pressure Position [Right Arm] Sitting 02 Sat by Pulse Oximetry 90 L 89 L Oxygen Delivery Method Nasal Cannula Oxygen Flow Rate (LPM) 3 Fraction of Inspired Oxygen 06/13/25 13:10 06/13/25 13:15 06/13/25 13:21 Temperature 94.8 F L Pulse Rate 80 Pulse Rate [Left] Respiratory Rate 13 17 14 Blood Pressure 97/54 L 107/72 L 77/36 L Blood Pressure [Right Arm] Blood Pressure Mean [Right Arm] Blood Pressure Source [Right Arm] Blood Pressure Position [Right Arm] 02 Sat by Pulse Oximetry 98 Oxygen Delivery Method Oxygen Flow Rate (LPM) Fraction of Inspired Oxygen 06/13/25 13:22 06/13/25 13:25 06/13/25 13:30 Temperature 96.4 F L 97.5 F L Pulse Rate 84 80 Pulse Rate [Left] Respiratory Rate 22 21 23 Blood Pressure 113/79 137/74 Blood Pressure [Right Arm] Blood Pressure Mean [Right Arm] Blood Pressure Source [Right Arm] Blood Pressure Position [Right Arm] 02 Sat by Pulse Oximetry 96 96 Oxygen Delivery Method Oxygen Flow Rate (LPM) Fraction of Inspired Oxygen 100 06/13/25 13:35 06/13/25 13:40 06/13/25 13:45 Temperature 98.1 F 98.2 F 98.2 F Pulse Rate 96 H 104 H 107 H Pulse Rate [Left] Respiratory Rate 20 20 22 Blood Pressure 153/114 H 175/86 H 152/69 H Blood Pressure [Right Arm] Blood Pressure Mean [Right Arm] Blood Pressure Source [Right Arm] Blood Pressure Position [Right Arm] 02 Sat by Pulse Oximetry 99 99 100 Oxygen Delivery Method Oxygen Flow Rate (LPM) Fraction of Inspired Oxygen 06/13/25 13:52 06/13/25 13:55 06/13/25 14:00 Temperature 98.2 F 98.2 F 98.2 F Pulse Rate 111 H 123 H 121 H Pulse Rate [Left] Respiratory Rate 18 23 22 Blood Pressure 140/90 120/92 H 119/65 Blood Pressure [Right Arm] Blood Pressure Mean [Right Arm] Blood Pressure Source [Right Arm] Blood Pressure Position [Right Arm] 02 Sat by Pulse Oximetry 100 100 100 Oxygen Delivery Method Oxygen Flow Rate (LPM) Fraction of Inspired Oxygen 06/13/25 14:05 06/13/25 14:09 06/13/25 14:10 Temperature 98.1 F 98.1 F Pulse Rate 129 H 104 H 52 L Pulse Rate [Left] Respiratory Rate 18 39 H Blood Pressure 121/72 134/66 Blood Pressure [Right Arm] Blood Pressure Mean [Right Arm] Blood Pressure Source [Right Arm] Blood Pressure Position [Right Arm] 02 Sat by Pulse Oximetry 100 100 Oxygen Delivery Method Oxygen Flow Rate (LPM) Fraction of Inspired Oxygen 06/13/25 14:15 06/13/25 14:20 06/13/25 14:25 Temperature 98.1 F 97.9 F 97.9 F Pulse Rate 105 H 107 H 106 H Pulse Rate [Left] Respiratory Rate 30 H 22 21 Blood Pressure 131/64 129/62 129/61 Blood Pressure [Right Arm] Blood Pressure Mean [Right Arm] Blood Pressure Source [Right Arm] Blood Pressure Position [Right Arm] 02 Sat by Pulse Oximetry 100 100 99 Oxygen Delivery Method Oxygen Flow Rate (LPM) Fraction of Inspired Oxygen 06/13/25 14:30 06/13/25 14:35 06/13/25 14:40 Temperature 97.7 F 97.7 F 97.7 F Pulse Rate 103 H 107 H 107 H Pulse Rate [Left] Respiratory Rate 22 21 21 Blood Pressure 126/64 126/62 125/62 Blood Pressure [Right Arm] Blood Pressure Mean [Right Arm] Blood Pressure Source [Right Arm] Blood Pressure Position [Right Arm] 02 Sat by Pulse Oximetry 99 99 99 Oxygen Delivery Method Oxygen Flow Rate (LPM) Fraction of Inspired Oxygen Lab Data Lab Results 06/13/25 12:53: WBC 10.5, RBC 3.74 L, Hgb 10.1 L, Hct 34.3 L, MCV 91.7, MCH 27.0, MCHC 29.4 L, RDW 21.0 H, Plt Count 288, MPV 9.5, Neut % (Auto) 76.0, Lymph % (Auto) 8.1 L, Churchill % (Auto) 12.6 H, Eos % (Auto) 1.7, Baso % (Auto) 0.7, Neut # (Auto) 8.0 H, Lymph # (Auto) 0.9, Churchill # (Auto) 1.3 H, Eos # (Auto) 0.2, Baso # (Auto) 0.1, PT 73.8 H, INR 7.74 H, Sodium 128 L, Potassium 7.7 H*, Chloride 91 L, Carbon Dioxide 24, Anion Gap 20.7 H, BUN 56 H, Creatinine 2.10 H, Estimated GFR 24 L, Est GFR ( Amer) 29 L, Glucose 146 H, Calcium 10.5 H, Phosphorus 5.4 H, Magnesium 2.6 H, Total Bilirubin 2.5 H, AST 49 H, ALT 23, Alkaline Phosphatase 174 H, Troponin I 0.04 H, NT-Pro-B Natriuret Pep 33481 H, Total Protein 7.9, Albumin 4.4, Globulin 3.5 H, Albumin/Globulin Ratio 1.3 06/13/25 12:56: VBG pH 7.13 L, VBG pCO2 65.3 H, VBG pO2 57.0 H, VBG HCO3 21.3 L, VBG Total CO2 -7.9 L, VBG O2 Saturation 77.3 H, VBG Base Excess -8.4 L, VBG Lactic Acid 7.7 H 06/13/25 13:40: Urine Color Yellow, Urine Appearance Clear, Urine pH 7.5, Ur Specific Newell 1.010, Urine Protein Negative, Urine Glucose (UA) Negative, Urine Ketones Negative, Urine Blood Negative, Urine Nitrate Negative, Urine Bilirubin Negative, Urine Urobilinogen 4.0, Ur Leukocyte Esterase Negative, Urine RBC None, Urine WBC Occasional, Ur Squamous Epith Cells Occasional, Urine Bacteria Trace 06/13/25 13:47: VBG pH 7.30 L, VBG pCO2 39.2, VBG pO2 187.5 H, VBG HCO3 18.7 L, VBG Total CO2 19.9 L, VBG O2 Saturation 99.5 H, VBG Base Excess -7.2 L, VBG Lactic Acid 7.0 H 06/13/25 12:53 06/13/25 12:53 Orders (Tests/Meds): ED MEDICATIONS Generic Name Dose Route Start Last Admin Trade Name Freq PRN Reason Stop Dose Admin Hydromorphone HCl 2 mg 06/13/25 15:48 Hydromorphone 2mg/Ml Syringe IV 07/13/25 15:47 Q4HP PRN Severe Pain (7-10) Piperacillin Sod/Tazobactam 100 mls @ 200 mls/hr 06/13/25 13:30 06/13/25 15:31 Sod 4.5 gm/ Sodium Chloride IV 06/23/25 13:29 200 mls/hr Q8H JOEY Administration Milrinone Lactate 20 mg/ 100 mls @ 3.713 mls/hr 06/13/25 14:34 06/13/25 15:58 Sodium Chloride IV 07/13/25 14:33 0.125 mcg/kg/min .Q24H JOEY 3.71 mls/hr Protocol Administration 0.125 MCG/KG/MIN Bumetanide 10 mg/ Sodium 100 mls @ 5 mls/hr 06/13/25 14:34 Chloride IV 07/13/25 14:33 .Q20H JOEY Propofol 100 mls @ 5.94 mls/hr 06/13/25 15:37 06/13/25 16:11 Diprivan 10mg/Ml 100ml Bottle IV 07/13/25 15:36 50 mcg/kg/min .[id number] JOEY 29.7 mls/hr Protocol Administration 10 MCG/KG/MIN Norepinephrine Bitartrate 8 mg 258 mls @ 15.48 mls/hr 06/13/25 15:37 06/13/25 13:42 / Sodium Chloride IV 07/13/25 15:36 10 mcg/min .[id number] JOEY 19.35 mls/hr Protocol Titration 8 MCG/MIN Fentanyl Citrate 1,000 mcg/ 100 mls @ 1 mls/hr 06/13/25 15:37 06/13/25 13:30 Sodium Chloride IV 07/13/25 15:36 10 mcg/hr .Q24H JOEY 1 mls/hr Protocol Administration 10 MCG/HR Discontinued Medications Generic Name Dose Route Start Last Admin Trade Name Mónica PRN Reason Stop Dose Admin Albuterol Sulfate 20 mg 06/13/25 13:52 06/13/25 13:59 Albuterol 0.083% 2.5 Mg/3 Ml Neb IH 06/13/25 13:53 20 mg ONCE ONE Administration Vancomycin HCl 2,000 mg/ 250 mls @ 125 mls/hr 06/13/25 13:45 Sodium Chloride IV 06/13/25 15:44 ONCE ONE Miscellaneous 1 each 06/13/25 13:30 Vancomycin Consult Request NOTAPPLIC 07/13/25 13:29 [facility] Perflutren Lipid Microsphere 2 mg 06/13/25 15:28 06/13/25 15:34 Definity Us Echo Contrast 2ml Inj IV 06/13/25 15:29 2 mg ONCE ONE Administration ORDERS Category Date Time Status CXR --portable [XR chest portable] Stat Exams 06/13/25 12:43 Completed Basic Metabolic Panel AMLAB Lab 06/14/25 06:00 Ordered Complete Blood Count Auto Diff AMLAB Lab 06/14/25 06:00 Ordered Complete Blood Count Auto Diff Stat Lab 06/13/25 12:53 Completed Comprehensive Metabolic Panel Stat Lab 06/13/25 12:53 Completed Free T4 (Free Thyroxine) Stat Lab 06/13/25 12:53 Received HIV Combo Stat Lab 06/13/25 12:53 Received Hepatitis C Ab Qual. W/ RFX Stat Lab 06/13/25 12:53 Received Lactic Acid AMLAB Lab 06/14/25 06:00 Ordered Lactic Acid Stat Lab 06/13/25 14:30 Ordered Lactic Acid Timed Lab 06/13/25 18:00 Ordered Lipid Panel AMLAB Lab 06/14/25 06:00 Ordered Liver Panel AMLAB Lab 06/14/25 06:00 Ordered MAG [Magnesium] Stat Lab 06/13/25 12:53 Completed NT Pro Brain Natriuretic Pep. Stat Lab 06/13/25 12:53 Completed PHOS [Phosphorous] Stat Lab 06/13/25 12:53 Completed PT INR [Prothrombin Time INR] Stat Lab 06/13/25 12:53 Completed Troponin I Q3H Lab 06/13/25 12:53 Completed Troponin I Q3H Lab 06/13/25 15:45 Ordered UA [Urinalysis and Microscopic] Stat Lab 06/13/25 13:40 Completed Blood Culture Stat Micro 06/13/25 14:46 Received Sputum Culture & Gram Stain Stat Micro 06/13/25 13:28 Results Urine Culture Stat Micro 06/13/25 13:40 Received VBG [Venous Blood Gas] Stat RT 06/13/25 12:56 Completed VBG [Venous Blood Gas] Stat RT 06/13/25 13:47 Completed CA echo doppler complete Stat Y 06/13/25 14:34 Completed Medical Decision Narrative: In summary, this 60-year-old female presents to the emergency department today with shortness of breath. On initial evaluation patient is critically ill. She is poorly perfused and is cyanotic periorally. She is bilateral lower extremity edema and left upper extremity edema. She was initially alert and oriented and conversant, but significantly air hunger, then she began all to become altered. She had an arrhythmia on telemetry and wide-complex tachycardia. Difficult to obtain blood pressure, altered mental status, administered 150 mg of amiodarone, then made the decision to perform synchronized cardioversion given poor perfusion. Good results. Then went into a paced rhythm after synchronized cardioversion at 150 J. Paced at 80. Though, her oxygen saturation still was between 60 and 80% despite being bagged. Decision was made to intubate given significant hypoxia and altered mental status. Procedure performed successfully. Push doses of push dose epinephrine for hypotension. Levophed drip begun for hypotension. With holding fluids due to volume overload. Cardiology consulted. Had an interactive discussion with them and ultimately they report no intervention for her. Recommend comfort care versus medical management. Patient's potassium was 7.6, hyperkalemia protocol initiated with albuterol, calcium, insulin, glucose. Bicarb. Ultimately, family arrived and power of banking attorney daughter wish to make patient a DNR. She would like to transition to comfort care once all family members are here, but would like no further escalation of care. Proceeding with broad-spectrum antibiotics for sepsis Dr. Sawyer recommends switching pressor to milrinone and parking at 0.2 mcg/kg/min. Star reasonable to consult hospitalist for admission. Dr. Connor to admit to ICU. In critical condition.. On reassessment, tissue perfusion slightly improved after intubation. Deferring sepsis bolus given patient is in fulminant heart failure based on chest x-ray and clinical examination. Broad-spectrum antibiotics begun in short order Procedures Intubation Mallampati Score:: Class III Time out performed: Yes sedative: Etomidate Mg Given: 20 paralytic: Succinylcholine Mg Given: 100 Laryngoscope: Irene ET Tube Size: 7.5 ET Tube Uncuffed: No Tube Secured Depth (cm): 21 Tube Secured Location: teeth Tube Placement Confirmation: visualized tube passing through cords, equal breath sounds bilaterally, no breath sounds over epigastrium and confirmation by capnometry Patient Tolerated Procedure: well Intubation Complications: none Critical Care Critical Care Time Critical Care Time: Yes Attestation: On 06/13/25, the high probability of a clinically significant, sudden or life threatening deterioration of the following system(s) required my full and direct attention, intervention and personal management. The time I documented below is in addition to time spent performing reported procedures but includes the following listed in this critical care notation. Total Time Total Critical Care Time: 45
[2025-06-13 13:27] LABS: NT Pro Brain Natriuretic Pep. 18000 pg/mL (0-125)
[2025-06-13 13:29] LABS: Troponin I 0.04 ng/ml (0.00-0.034)
[2025-06-13] MEDS: FENTANYL CITRATE/PF 1,000 MCG in 0.9 % SODIUM CHLORIDE 80 ML 1 MCG IV (13:30)
[2025-06-13 13:40] LABS: Phosphorous 5.4 mg/dl (2.5-4.5)
[2025-06-13 13:45] LABS: Microscopic, Urine URINE MICROSCOPIC (MICROSCOPIC)
[2025-06-13 13:45] LABS: Potassium 7.7 mmoL/L (3.5-5.1)
[2025-06-13 13:48] LABS: VBG HCO3 18.7 mmol/L (23-30); VBG PCO2 39.2 mmol/L (35-51); VBG PH 7.30 mmol/L (7.31-7.41); VBG PO2 187.5 mmol/L (28-40)
[2025-06-13 13:49] LABS: Lactate Venous 7.0 mmol/L (0.4-2.0)
[2025-06-13 13:51] LABS: VBG HCO3 21.3 mmol/L (23-30); VBG PCO2 65.3 mmol/L (35-51); VBG PH 7.13 mmol/L (7.31-7.41); VBG PO2 57.0 mmol/L (28-40)
[2025-06-13 13:52] LABS: Lactate Venous 7.7 mmol/L (0.4-2.0)
[2025-06-13] MEDS: ALBUTEROL 0.083% 2.5 MG/3 ML NEB 20 MG IH (13:59)
--- OUTSIDE RECORDS SUMMARY | 2025-06-13 13:59 | XMS_ITS | CCD ---
Author Organization Unknown Care Team Providers Care Parking Assistant Name Role Phone Non Engaged, [facility] Primary Care Provider Unav ailable Unavailable Chronic Care Management Unavaila ble Summary Purpose DataExchange Insurance Providers Payer name Policy type / Coverage type Covered libertarian ID Effective Begin Date Effective End Date [facility] [id number] Unknown Unknown Family History Family History data not found Medication Administered No Medication Administered data Reason For Visit No Reason For Visit data Medical Equipment No Medical Equipment data Advance Directives No Advance Directive data
--- OUTSIDE RECORDS SUMMARY | 2025-06-13 14:02 | XMS_ITS | CCD ---
Author Organization Unknown Care Team Providers Care Grocery Supervisor Name Role Phone Non Engaged, [facility] Primary Care Provider Unav ailable Unavailable Chronic Care Management Unavaila ble Summary Purpose DataExchange Insurance Providers Payer name Policy type / Coverage type Covered constitution party ID Effective Begin Date Effective End Date [facility] [id number] Unknown Unknown Family History Family History data not found Medication Administered No Medication Administered data Reason For Visit No Reason For Visit data Medical Equipment No Medical Equipment data Advance Directives No Advance Directive data
[2025-06-13 14:05] LABS: Color,Urine YELLOW (Yellow); Glucose,Urine (UA) Negative (Negative); Ketones,Urine Negative (Negative); Leukocyte Esterase,Urine Negative (Negative); PH,Urine 7.5 (5.0-8.5); Protein,Urine Negative (Negative); Specific Gravity, Urine 1.010 (1.005-1.030); Urobilinogen,Urine 4.0 EU/dl (0.2)
--- NOTE | 2025-06-13 14:34 | CA_ITS ---
APPROVED REPORT EXAM: Comprehensive 2D, Doppler, and color-flow Echocardiogram Linux Network Engineer: Shakira White RT(R) Ht: 5 ft 4 in Wt: 218lbs BSA: 2.03 BP: 132/61 mmHg Indications: cardiogenic shock, chest pain, history of mechanical MV replacement, EF 15-20% on echo done 04/05/25 Echo Enhancing Agent Indication: Endocardial border delineation Agent(s) / Amount(s) Used: Definity 2 cc Aortic Valve AO VTI 41.0 (18-25 cm) Mitral Valve MV PHT 73.0 ms Tricuspid Valve TR P. Velocity 264.00 cm/s RAP Estimate 10.00 mmHg RVSP 38.00 mmHg Left Ventricle The left ventricle is severely dilated. The left ventricular systolic function is severely reduced. There is increased LV wall thickness. The septum is asynchronous. Diastolic function is indeterminate. LVEF is 15-20%. Right Ventricle The right ventricle is severely dilated. Right ventricle is moderately hypokinetic. There is a device lead in the right ventricle. Atria Left atrium is severely dilated. Right atrium is severely dilated. There is no Doppler evidence of interatrial shunt. Aortic Valve The aortic valve is mildly thickened. There is no hemodynamically significant aortic stenosis. Mild aortic regurgitation. Mitral Valve s/p mechanical mitral valve. The mechanical leaflets are not well-visualized in the study. Mean MV gradient is 5 mmHg at HR of 107 bpm. Mild aortic regurgitation. Tricuspid Valve The tricuspid valve leaflets are thin and pliable. At least moderate tricuspid regurgitation. RVSP 45-50 mmHg. Pulmonic Valve The pulmonary valve is normal in structure. Trace pulmonic regurgitation. Great Vessels The aortic root is normal in size. The IVC is dilated. Pericardium There is no pericardial effusion. Ascites is present. Pleural effusion is present. Other Information Study Quality: Technically Difficult Conclusion Technically difficult study due to poor acoustic windows. Severe LV dilation with severe reduction in LV systolic function (LVEF 15-20%). Severe RV dilation with moderate reduction in RV function. Severe biatrial dilation. s/p mechanical MVR. Acceptable mean MV gradient of 5 mmHg (HR 107 bpm). Mild MR. At least moderate TR. Markedly elevated RVSP 45-50 mmHg. Pleural effusion. Ascites. Electronically signed by : Sade Caldwell MD 06/13/2025 23:52:21
[2025-06-13 14:35] LABS: INR 7.74 (0.9-1.1); Prothrombin Time 73.8 seconds (10.1-12.5)
--- NOTE | 2025-06-13 14:36 | PC.NURSE ---
1239hrs- Patient arrived to ED via [facility] 1240hrs- Patient transferred to ED stretcher via draw sheet method, CN assigned roles for staff. 1241hrs- Patient was placed on ED Zoll monitior using EMS pads. 1244hrs- Patient was administered 150mg of Amio slow IVP. 1245hrs- Patient was synchronized cardio @ 150J with a rhythm change to a paced rhythm. 1249hrs- EJ placed in the R jugular by Noe Chandler 1250hrs- 2g of mag administered 1252hrs- EKG obtained 1257hrs- Silverio sent EKG via [employer] Noe Chandler cell phone 1300hrs- Patient administered levophed @ 8mcg/min until desired SBP goal achieved 1301hrs- Patient sustaining a HR of 170 and paced with wide complex 1304hrs- Patient administered 20mg of Etomidate to prep for intubation 1305hrs- Patient administered 100mg of succs also prep for intubation. 1306hrs- Patient intubated 21cm @ teeth with positivve color change and bilateral breath sounds confirmed by auscultation. 1309hrs- titrated up the levophed to 10mcg/min 1310hrs- 16 Fr OG placed by nursing staff 1315hrs- Patient administered one amp of BiCarb, 16Fr Temp sensing huddl[place] anchored by nursing staff, temp was 94.6F 1323hrs- Patient administered Push dose Epi 1331hrs- Patients ET tube retracted to 22cm @ the teeth
[2025-06-13 14:38] LABS: Bilirubin,Urine Negative (Negative)
[2025-06-13 14:39] LABS: Bacteria,Urine Trace /lpf; Squamous Epithelial Cell,Urine Occasional #/hpf (0-5); WBC,Urine Occasional #/hpf (0-3)
--- NOTE | 2025-06-13 15:09 | PC.NURSE ---
bedside talking with the family
--- NOTE | 2025-06-13 15:20 | PC.NURSE ---
Dr Steven Quarles states Dr Connor has accepted pt to ICU.
--- NOTE | 2025-06-13 15:29 | PC.NURSE ---
called house for bed
[2025-06-13] MEDS: PIPERACILLIN/TAZO 4.5 GM in 0.9 % SODIUM CHLORIDE 100 ML IV ×2 (15:31→22:13)
[2025-06-13] MEDS: DEFINITY US ECHO CONTRAST 2ML INJ 2 MG IV (15:34)
[2025-06-13] MEDS: MILRINONE LACTATE 20 MG in 0.9 % SODIUM CHLORIDE 80 ML 3.71 MG IV (15:58)
--- NOTE | 2025-06-13 16:20 | PC.NURSE ---
called report to Lauren Argueta RN in ICU
[2025-06-13 16:30] LABS: Hepatitis C Ab Qual. W/ RFX NEGATIVE (Negative)
--- NOTE | 2025-06-13 16:30 | PC.NURSE ---
Katharine Latham RN, Corey Latham EMT, Jake Koo EMT-P, and Juany RT transporting pt to ICU [id number]
--- NOTE | 2025-06-13 16:34 | PC.NURSE ---
pt arrived to ICU room 264 via stretcher from ER @[id number]
--- NOTE | 2025-06-13 17:20 | PC.WOUNDNOTE ---
coccyx, redness, no open spots
--- NOTE | 2025-06-13 17:23 | PC.WOUNDNOTE ---
scabbed skin tear on top of right forearm
--- NOTE | 2025-06-13 17:23 | PC.WOUNDNOTE ---
redness and scabbing on left arm
--- NOTE | 2025-06-13 17:24 | PC.WOUNDNOTE ---
redness and edema to bilateral lower extremities
--- NOTE | 2025-06-13 17:25 | PC.WOUNDNOTE ---
bruise on right knee
--- NOTE | 2025-06-13 17:25 | PC.WOUNDNOTE ---
bruise on left upper arm by armpit
--- NOTE | 2025-06-13 17:26 | PC.WOUNDNOTE ---
redness and edema on left forearm
--- NOTE | 2025-06-13 17:26 | PC.WOUNDNOTE ---
redness in left groin area
[2025-06-13] MEDS: BUMETANIDE 10 MG in 0.9 % SODIUM CHLORIDE 60 ML 5 MG IV (17:28)
[2025-06-13 17:37] LABS: Free T4 (Free Thyroxine) 3.53 ng/dl (0.78-2.19)
[2025-06-13 17:41] LABS: POC Glucose,Bedside 182 (70-110)
[2025-06-13 17:49] LABS: Reflex Lactic Add Lactic Reflex
[2025-06-13] MEDS: VANCOMYCIN/WATER FOR INJ (PEG) 1.75 GM/350 ML PIGGYBACK IV (17:51)
--- NOTE | 2025-06-13 18:05 | PC.NURSE ---
patient has heel protectors on and a preventative dressing on her coccyx to prevent skin breakdown. patients lower extremities and right arm are elevated with pillows. renetta care and catheter care was provided. Patient is on aspiration precautions so the head of the bed is at least 30 degrees. patient will be turned every two hours and oral care will be provided every two hours as well. family is at bedside at this time.
--- NOTE | 2025-06-13 18:26 | EXP.HP ---
History of Present Illness *Admission Date: 06/13/25 *Reason for visit:: V tach, Hypoxia *History of present illness: Patient is a 60-year-old female with past medical history of heart failure with reduced ejection fraction cardiomyopathy iron deficiency anemia, pulmonary hypertension, diabetes mellitus, CKD stage IV, atrial fibrillation, hypertension, hyperlipidemia, COPD, DVT left upper extremity on Coumadin who presents to the hospital via EMS due to complaints of shortness of breath orthopnea and cyanosis. On handoff from the ED physician, family was leaning towards comfort care approach and was waiting for other family members to arrive in the hospital. At time of my evaluation patient is unable to provide any history, patient was made DNR in the emergency department as well as family requested no escalation of care. [facility] Disclaimer: The information contained in this section may have been updated after the patient was seen, as this information can be updated by other users. 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 current use of anticoagulants with INR goal of 2.5-3.5 Third degree heart block Junctional escape rhythm 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 Afib HFrEF (heart failure with reduced ejection fraction) Partial tear of tendon CHF (NYHA class III, ACC/AHA stage C) Atrial fibrillation, chronic COPD exacerbation CHF exacerbation Anemia Systolic CHF Typical angina Dyspnea Rib fracture Blood transfusion reaction Autoimmune hemolytic anemia Arthritis Hernia Sinus problem Rheumatic heart disease Hypothyroidism Polyarthralgia Pulmonary edema HLD (hyperlipidemia) HTN (hypertension) CAD (coronary artery disease) DM type 2 (diabetes mellitus, type 2) DVT (deep venous thrombosis) Cardiomyopathy Arrhythmia Liver disease Thyroid disease Valvular heart disease Hypertension Hyperlipidemia GERD (gastroesophageal reflux disease) COPD (chronic obstructive pulmonary disease) Class 1 obesity CKD (chronic kidney disease) stage 3, GFR 30-59 ml/min Coronary artery disease Congestive heart failure, NYHA class III NYHA class 3 acute on chronic systolic heart failure Diabetes mellitus Hypertensive heart disease CHF (congestive heart failure) Diastolic heart failure Tricuspid valve regurgitation Surgical History (Updated 06/02/25 @ 00:00 by Martín Dooley) Presence of biventricular AICD History of mitral valve replacement with mechanical valve Mitral valve replaced History of colon resection H/O tubal ligation History of angioplasty History of renal stent History of ureteroscopy History of tubal ligation History of hernia repair History of cardiac catheterization Family History Other Breast cancer COPD (chronic obstructive pulmonary disease) Colon cancer Family history of acute heart failure Family history of hyperlipidemia Family history of hypertension Family history of myocardial infarction Hypertension Stroke Social History Smoking Status: Unknown if ever smoked smoking status stop date: 01/09/2006 quit status: quit date established second hand exposure: Yes alcohol intake: never substance use type: denies use current occupational status: retired and disabled Travel in the last 8 weeks?: None adopted: No caregiver/support person: No foster care: No household members: significant other housing: house lives independently: Yes marital status: life partner education level: college service: No skilled nursing: No current occupational exposures/hazards: No sexually active: Yes how many partners: 1 are you practicing safe sex: Yes diet: diabetic well-balanced diet: about half the time caffeine: No eating out: rarely or never during the past year weight has: remained stable bhavya/sabianism: Syn[employer] special hbavya needs: No agree to transfusion: Yes helmet use: No water heater temp set < 120 deg: Yes working smoke detector in home: Yes fire extinguisher in home: Yes carbon monox detector in home: Yes firearms in home: No do you feel safe at home: Yes victim of physical abuse: No victim of emotional abuse: No victim of sexual abuse: No would you like helpful sources: No Other Medical History Have you received the Flu Vaccine for this season: No Have you received the Pneumonia Vaccine: No Review of Systems Review of Systems Review of systems:: unable to obtain Meds Home Medications and Allergies Home Medications ?Medication ?Instructions ?Recorded ?Confirmed ?Type oxycodone-acetaminophen 10 mg-325 1 tab PO QID PRN Pain, Moderate 05/23/18 05/29/25 History mg tablet (Percocet) alprazolam 0.5 mg tablet (Xanax) 0.5 mg PO TID PRN Anxiety 11/29/19 05/29/25 History levothyroxine 25 mcg tablet 25 mcg PO DAILY 06/05/21 05/29/25 History insulin glargine 100 60 units SQ DAILY 02/22/22 05/29/25 History unit-lixisenatide 33 mcg/mL subcutaneous pen (Soliqua 100/33) febuxostat 40 mg tablet 40 mg PO DAILY 02/09/23 05/29/25 History potassium chloride 20 mEq 20 meq PO BID 04/15/23 05/29/25 History tablet,extended release(part/cryst) calcitriol 0.25 mcg capsule 0.25 mcg PO DAILY 10/30/23 05/29/25 History duloxetine 60 mg capsule,delayed 60 mg PO HS 03/06/24 05/29/25 History release empagliflozin 10 mg tablet 10 mg PO DAILY #30 tabs 07/17/24 05/29/25 Rx (Jardiance) warfarin 4 mg tablet 2 mg (1/2 x 4 mg) PO DAILY 30 days 01/05/25 05/29/25 Rx #0 tabs insulin glargine 100 unit/mL (3 14 unit SQ HS 01/17/25 05/29/25 History mL) subcutaneous pen (Lantus Solostar U-100 Insulin) amiodarone 200 mg tablet 200 mg PO DAILY #90 tabs 04/02/25 05/29/25 Rx blood-glucose sensor (Dexcom G6 #1 ea 04/05/25 05/29/25 History Sensor device) blood-glucose transmitter (Dexcom #1 ea 04/05/25 05/29/25 History G6 Transmitter device) blood-glucose,youth services specialist,cont #1 ea 04/05/25 05/29/25 History (Dexcom G6 Cna Gna) dexlansoprazole 60 mg 60 mg PO DAILY 04/05/25 05/29/25 History capsule,biphase delayed release pen needle, diabetic 32 gauge x #1,200 ea 04/05/25 05/29/25 History metoprolol succinate 25 mg 50 mg (2 x 25 mg) PO DAILY 30 days 04/12/25 05/29/25 Rx tablet,extended release 24 hr #60 tabs bumetanide 2 mg tablet 2 mg PO BID 05/29/25 05/29/25 History spironolactone 50 mg tablet 50 mg PO BID 05/30/25 05/30/25 History metolazone 2.5 mg tablet 2.5 mg PO BID 30 days #60 tabs 06/01/25 Rx New Prescriptions to Start Prescriptions: Allergies Allergy/AdvReac Type Severity Reaction Status Date / Time codeine (CODEINE) Allergy Unknown nausea, Verified 05/29/25 13:11 swelling Corticosteroids Allergy Unknown Unknown Verified 05/29/25 13:11 (Glucocorticoids) allergy (CORTICOSTEROIDS reaction (GLUCOCORTICOIDS)) NSAIDS (Non-Steroidal Allergy Unknown Other Verified 05/29/25 13:11 Anti-Inflamma rosuvastatin (From CRESTOR) Allergy Unknown Unknown Verified 05/29/25 13:11 allergy reaction theophylline (From DAVID-DUR) Allergy Unknown Unknown Verified 05/29/25 13:11 allergy reaction allopurinol Allergy Hives Verified 05/29/25 13:11 Iodinated Contrast Media AdvReac Severe shuts Verified 05/29/25 13:11 (IODINATED CONTRAST- ORAL kidneys AND IV DYE) down and bleeding buprenorphine (From BUPRENEX) AdvReac Intermediate Nausea Verified 05/29/25 13:11 levofloxacin (From Levaquin) AdvReac Other Verified 05/29/25 13:11 lisinopril AdvReac Cough Verified 05/29/25 13:11 prednisone AdvReac Unknown Verified 05/29/25 13:11 allergy reaction sacubitril (From Entresto) AdvReac Hypotension Verified 05/29/25 13:11 valsartan (From Entresto) AdvReac Hypotension Verified 05/29/25 13:11 Exam Data for Last 24 hours Vital signs and Labs for Last 24 Hours: Temp Pulse Resp BP Pulse Ox O2 Del Method O2 Flow Rate 97.8 F 100 H 23 124/70 95 Mechanical Ventilation 60 06/13/25 16:20 06/13/25 16:20 06/13/25 16:50 06/13/25 16:20 06/13/25 16:50 06/13/25 16:20 06/13/25 16:20 FiO2 50 06/13/25 16:50 Laboratory Results - last 24 hr 06/13/25 12:53: WBC 10.5, RBC 3.74 L, Hgb 10.1 L, Hct 34.3 L, MCV 91.7, MCH 27.0, MCHC 29.4 L, RDW 21.0 H, Plt Count 288, MPV 9.5, Neut % (Auto) 76.0, Lymph % (Auto) 8.1 L, [place] % (Auto) 12.6 H, Eos % (Auto) 1.7, Baso % (Auto) 0.7, Neut # (Auto) 8.0 H, Lymph # (Auto) 0.9, [place] # (Auto) 1.3 H, Eos # (Auto) 0.2, Baso # (Auto) 0.1, PT 73.8 H, INR 7.74 H, Sodium 128 L, Potassium 7.7 H*, Chloride 91 L, Carbon Dioxide 24, Anion Gap 20.7 H, BUN 56 H, Creatinine 2.10 H, Estimated GFR 24 L, Est GFR ( Amer) 29 L, Glucose 146 H, Calcium 10.5 H, Phosphorus 5.4 H, Magnesium 2.6 H, Total Bilirubin 2.5 H, AST 49 H, ALT 23, Alkaline Phosphatase 174 H, Troponin I 0.04 H, NT-Pro-B Natriuret Pep 99102 H, Total Protein 7.9, Albumin 4.4, Globulin 3.5 H, Albumin/Globulin Ratio 1.3, Free T4 3.53 H, HCV Ab ZENAIDA w/Rflx PCR Qn Negative, HIV Ag/Ab Combo Qual Negative 06/13/25 12:56: VBG pH 7.13 L, VBG pCO2 65.3 H, VBG pO2 57.0 H, VBG HCO3 21.3 L, VBG Total CO2 -7.9 L, VBG O2 Saturation 77.3 H, VBG Base Excess -8.4 L, VBG Lactic Acid 7.7 H 06/13/25 13:40: Urine Color Yellow, Urine Appearance Clear, Urine pH 7.5, Ur Specific [place] 1.010, Urine Protein Negative, Urine Glucose (UA) Negative, Urine Ketones Negative, Urine Blood Negative, Urine Nitrate Negative, Urine Bilirubin Negative, Urine Urobilinogen 4.0, Ur Leukocyte Esterase Negative, Urine RBC None, Urine WBC Occasional, Ur Squamous Epith Cells Occasional, Urine Bacteria Trace 06/13/25 13:47: VBG pH 7.30 L, VBG pCO2 39.2, VBG pO2 187.5 H, VBG HCO3 18.7 L, VBG Total CO2 19.9 L, VBG O2 Saturation 99.5 H, VBG Base Excess -7.2 L, VBG Lactic Acid 7.0 H 06/13/25 17:34: POC Glucose 182 H I & O for Last 24 hours: Intake & Output 06/10/25 06/11/25 06/12/25 06/13/25 23:59 23:59 23:59 23:59 Intake Total 236.803 / 236.803 Output Total 35 / 35 Balance 201.803 / 201.803 Weight 91.49 kg Microbiology Reports for the Last 24 Hours: Microbiology 06/13/25 13:28 Sputum - Endotracheal Tube Aspirate Gram Stain - Final Constitutional Constitutional: severe distress *Routine HEENT Exam Head: Present normocephalic Eye: Present EOMI and PERRL ENT: Present mucous membranes moist *Routine Neck Exam Neck: Present supple; Absent lymphadenopathy *Routine Respiratory Exam Respiratory: Present patient mechanically ventilated *Routine Cardiovascular Exam Cardiovascular: Present tachycardia *Routine Abdominal Exam Abdominal: Present soft and normoactive bowel sounds; Absent tenderness *Routine Rectal Exam Rectal:: deferred *Routine Genitalia Exam Genitalia:: deferred *Routine Extremities Exam Extremities: Absent cyanosis, clubbing or edema *Routine Skin Exam Skin: Present warm; Absent rash Assessment and Plan *Assessment and plan (1) V tach: Status: Acute Category: Medical Code(s): I47.20 - Ventricular tachycardia, unspecified (2) Acute and chronic respiratory failure with hypoxia: Status: Acute Category: Medical Code(s): J96.21 - Acute and chronic respiratory failure with hypoxia (3) Sepsis: Status: Acute Category: Medical Code(s): A41.9 - Sepsis, unspecified organism (4) Acute on chronic HFrEF (heart failure with reduced ejection fraction): Status: Acute Category: Medical Code(s): I50.23 - Acute on chronic systolic (congestive) heart failure (5) Restrictive cardiomyopathy: Status: Suspected Category: Medical Code(s): I42.5 - Other restrictive cardiomyopathy (6) Diabetes mellitus: Status: Acute Qualifiers: Diabetes mellitus complication status: without complication Diabetes mellitus type: type 1 Qualified Code(s): E10.9 - Type 1 diabetes mellitus without complications Category: Medical Code(s): E11.9 - Type 2 diabetes mellitus without complications (7) CKD (chronic kidney disease) stage 4, GFR 15-29 ml/min: Status: Acute Category: Medical Code(s): N18.4 - Chronic kidney disease, stage 4 (severe) (8) Atrial fibrillation, chronic: Status: Acute Category: Medical Code(s): I48.20 - Chronic atrial fibrillation, unspecified Plan Patient is a 60-year-old female with past medical history of heart failure with reduced ejection fraction cardiomyopathy iron deficiency anemia, pulmonary hypertension, diabetes mellitus, CKD stage IV, atrial fibrillation, hypertension, hyperlipidemia, COPD, DVT left upper extremity on Coumadin who presents to the hospital via EMS due to complaints of shortness of breath orthopnea and cyanosis. On handoff from the ED physician, family was leaning towards comfort care approach and was waiting for other family members to arrive in the hospital. At time of my evaluation patient is unable to provide any history, patient was made DNR in the emergency department as well as family requested no escalation of care. Assessment and plan Acute on chronic hypoxic respiratory failure Ventricular tachycardia status post synchronized cardioversion Ventilator dependent respiratory failure Coagulopathy Hyperkalemia Acute on chronic CHF with reduced ejection fraction Suspect COPD exacerbation Patient is currently intubated and sedated Patient was made DNR in the emergency department Patient family requested no escalation of care from this point Patient family requesting other family members to arrive to discuss comfort care approach Patient has overall poor prognosis in the setting of acute CHF cardiomyopathy coagulopathy, hyperkalemia, acute hypoxic respiratory failure Cardiology recommended starting milrinone, broad-spectrum antibiotics Status post synchronized cardioversion DVT PPx - home warfarin on hold, due to coagulopathy
[2025-06-13] MEDS: IPRATROPIUM/ALBUTEROL 3 ML NEB IH (18:53)
[2025-06-13 19:29] LABS: Troponin I 0.09 ng/ml (0.00-0.034)
[2025-06-13 19:47] LABS: POC Glucose,Bedside 181 (70-110)
[2025-06-13 20:44] LABS: Alanine Aminotransferase 80 U/L (12-78); Albumin Level 3.6 g/dl (3.5-5.0); Albumin/Globulin Ratio 1.4 (1.1-1.8); Alkaline Phosphatase 152 U/L (38-126); Anion Gap 15.8 mEq/L (5-15); Aspartate Amino Transferase 354 U/L (14-36); Bilirubin,Total 3.8 mg/dl (0.2-1.3); Blood Urea Nitrogen 58 mg/dl (7-17); Calcium 10.0 mg/dl (8.4-10.2); Carbon Dioxide 23 mmol/L (22.0-30.0); Chloride 94 mmol/L (98-107); Creatinine Clearance Estimated 38 mL/min (50-200); Creatinine,Serum 2.20 mg/dl (0.52-1.04); Estimated Glomerular Filt Rate 23 ml/min (>60); GFR (African American) 27 ML/MIN (>60); Globulin 2.6 g/dL (1.3-3.2); Glucose 175 mg/dl (74-100); Magnesium 2.4 mg/dl (1.6-2.3); Sodium 126 mmol/L (136-145); Total Protein,Serum 6.2 g/dl (6.3-8.2)
[2025-06-13 20:46] LABS: Potassium 6.8 mmoL/L (3.5-5.1)
[2025-06-13] MEDS: INSULIN HUMAN REGULAR 100 UNITS/ML 10ML VIAL 10 UNIT IVP (21:18)
[2025-06-13] MEDS: DEXTROSE 50% 50ML SYRINGE (CRASH CART) 50 ML IVP (21:18)
[2025-06-13] MEDS: LOKELMA 5GM PACKET 10 GM PO (21:27)
--- NOTE | 2025-06-13 22:00 | PC.NURSE ---
propofol tubing changed at 2200, due to change again at 1000
[2025-06-14] VITALS (81 sets, daily range): BP systolic 65–127; BP diastolic 33–67; PULSE 94–134; RESP 9–26; TEMP 36.4–37.6; O2SAT 60–99; BMI 34.4
[2025-06-14] MEDS: IPRATROPIUM/ALBUTEROL 3 ML NEB IH ×4 (00:02→18:07)
[2025-06-14 02:59] LABS: POC Glucose,Bedside 182 (70-110)
[2025-06-14] MEDS: PIPERACILLIN/TAZO 4.5 GM in 0.9 % SODIUM CHLORIDE 100 ML IV ×3 (05:42→21:02)
[2025-06-14 06:06] LABS: Alanine Aminotransferase 80 U/L (12-78); Albumin Level 3.3 g/dl (3.5-5.0); Alkaline Phosphatase 140 U/L (38-126); Anion Gap 12.8 mEq/L (5-15); Aspartate Amino Transferase 320 U/L (14-36); Bilirubin,Direct 2.2 mg/dl (0.0-0.4); Bilirubin,Indirect 0.7 mg/dL (0.0-0.9); Bilirubin,Total 2.9 mg/dl (0.2-1.3); Bilirubin,Unconjugated 0.7 mg/dL (0.0-1.1); Blood Urea Nitrogen 59 mg/dl (7-17); Calcium 9.6 mg/dl (8.4-10.2); Carbon Dioxide 27 mmol/L (22.0-30.0); Chloride 93 mmol/L (98-107); Cholesterol 148 mg/dl (140-200); Creatinine Clearance Estimated 40 mL/min (50-200); Creatinine,Serum 2.10 mg/dl (0.52-1.04); Estimated Glomerular Filt Rate 24 ml/min (>60); GFR (African American) 29 ML/MIN (>60); Glucose 161 mg/dl (74-100); HDL Cholesterol 18 mg/dl (40-60); Hematocrit 28.1 % (37.0-47.0); Immature Granulocytes % 0.5 %; Mean Corpuscular HGB Conc 31.3 g/dL (31.8-35.4); Mean Corpuscular Hemoglobin 27.1 pg (27.0-31.2); Mean Corpuscular Volume 86.5 fl (81-99); Nucleated Red Blood Cells % 0 %; Platelet Count 231 K/mm3 (142-424); Potassium 5.8 mmoL/L (3.5-5.1); Red Blood Count 3.25 M/mm3 (4.20-5.40); Red Cell Distribution Width-SD 66.0 fL; Sodium 127 mmol/L (136-145); Total Protein,Serum 6.0 g/dl (6.3-8.2); Triglycerides 170 mg/dl (30-150); White Blood Count 13.1 K/mm3 (4.8-10.8)
[2025-06-14 06:28] LABS: Hemoglobin 8.4 g/dL (12.2-16.2)
[2025-06-14 06:32] LABS: INR 8.00 (0.9-1.1); Prothrombin Time 90.0 seconds (10.1-12.5)
[2025-06-14] MEDS: BUMETANIDE 10 MG in 0.9 % SODIUM CHLORIDE 60 ML IV ×2 (06:53→17:11)
[2025-06-14 08:27] LABS: POC Glucose,Bedside 175 (70-110)
[2025-06-14 09:55] LABS: Total Cells Counted 100
[2025-06-14 09:56] LABS: RBC Morphology Normal
[2025-06-14] MEDS: FENTANYL CITRATE/PF 1,000 MCG in 0.9 % SODIUM CHLORIDE 80 ML 6 MCG IV (10:03)
[2025-06-14] MEDS: NOREPINEPHRINE BITARTRATE 8 MG in 0.9 % SODIUM CHLORIDE 250 ML 15.48 MG IV (10:30)
[2025-06-14] MEDS: LOKELMA 5GM PACKET 10 GM PO ×2 (11:38→20:47)
--- NOTE | 2025-06-14 11:53 | EXP.PHA.CONS ---
Pharmacy Consult Date: 06/14/25 Time: 11:53 Referring provider: DR. ALLEN Reason for Consult:: VANCOMYCIN DOSING Allergies Allergy/AdvReac Type Severity Reaction Status Date / Time codeine (CODEINE) Allergy Unknown nausea, Verified 05/29/25 13:11 swelling Corticosteroids Allergy Unknown Unknown Verified 05/29/25 13:11 (Glucocorticoids) allergy (CORTICOSTEROIDS reaction (GLUCOCORTICOIDS)) NSAIDS (Non-Steroidal Allergy Unknown Other Verified 05/29/25 13:11 Anti-Inflamma rosuvastatin (From CRESTOR) Allergy Unknown Unknown Verified 05/29/25 13:11 allergy reaction theophylline (From DAVID-DUR) Allergy Unknown Unknown Verified 05/29/25 13:11 allergy reaction allopurinol Allergy Hives Verified 05/29/25 13:11 Iodinated Contrast Media AdvReac Severe shuts Verified 05/29/25 13:11 (IODINATED CONTRAST- ORAL kidneys AND IV DYE) down and bleeding buprenorphine (From BUPRENEX) AdvReac Intermediate Nausea Verified 05/29/25 13:11 levofloxacin (From Levaquin) AdvReac Other Verified 05/29/25 13:11 lisinopril AdvReac Cough Verified 05/29/25 13:11 prednisone AdvReac Unknown Verified 05/29/25 13:11 allergy reaction sacubitril (From Entresto) AdvReac Hypotension Verified 05/29/25 13:11 valsartan (From Entresto) AdvReac Hypotension Verified 05/29/25 13:11 Home Medications ?Medication ?Instructions ?Recorded ?Confirmed ?Type oxycodone-acetaminophen 10 mg-325 1 tab PO QID 05/23/18 06/14/25 History mg tablet (Percocet) alprazolam 0.5 mg tablet (Xanax) 0.5 mg PO TID 11/29/19 06/14/25 History levothyroxine 25 mcg tablet 25 mcg PO DAILY 06/05/21 06/14/25 History insulin glargine 100 60 units SQ DAILY 02/22/22 06/14/25 History unit-lixisenatide 33 mcg/mL subcutaneous pen (Soliqua 100/33) febuxostat 40 mg tablet 40 mg PO DAILY 02/09/23 06/14/25 History potassium chloride 20 mEq 20 meq PO BID 04/15/23 06/14/25 History tablet,extended release(part/cryst) calcitriol 0.25 mcg capsule 0.25 mcg PO DAILY 10/30/23 06/14/25 History duloxetine 60 mg capsule,delayed 60 mg PO HS 03/06/24 06/14/25 History release empagliflozin 10 mg tablet 10 mg PO DAILY #30 tabs 07/17/24 06/14/25 Rx (Jardiance) warfarin 4 mg tablet 2 mg (1/2 x 4 mg) PO DAILY 30 days 01/05/25 06/14/25 Rx #0 tabs insulin glargine 100 unit/mL (3 14 unit SQ HS 01/17/25 06/14/25 History mL) subcutaneous pen (Lantus Solostar U-100 Insulin) amiodarone 200 mg tablet 200 mg PO DAILY #90 tabs 04/02/25 06/14/25 Rx blood-glucose sensor (Dexcom G6 #1 ea 04/05/25 06/14/25 History Sensor device) blood-glucose transmitter (Dexcom #1 ea 04/05/25 06/14/25 History G6 Transmitter device) blood-glucose,pulp beater,cont #1 ea 04/05/25 06/14/25 History (Dexcom G6 Assistant Foreman) dexlansoprazole 60 mg 60 mg PO DAILY 04/05/25 06/14/25 History capsule,biphase delayed release pen needle, diabetic 32 gauge x #1,200 ea 04/05/25 06/14/25 History metoprolol succinate 25 mg 50 mg (2 x 25 mg) PO DAILY 30 days 04/12/25 06/14/25 Rx tablet,extended release 24 hr #60 tabs bumetanide 2 mg tablet 3 mg PO BID 05/29/25 06/14/25 History spironolactone 50 mg tablet 50 mg PO BID 05/30/25 06/14/25 History metolazone 2.5 mg tablet 2.5 mg PO BID 30 days #60 tabs 06/01/25 06/14/25 Rx albuterol sulfate 90 mcg/actuation 2 puff inhalation Q4HP PRN Wheezing 06/14/25 06/14/25 History aerosol inhaler New Prescriptions to Start Prescriptions: Height: 1.63 m Weight: 91.535 kg Laboratory Results:: Laboratory Results - last 24 hr 06/13/25 12:53: WBC 10.5, RBC 3.74 L, Hgb 10.1 L, Hct 34.3 L, MCV 91.7, MCH 27.0, MCHC 29.4 L, RDW 21.0 H, Plt Count 288, MPV 9.5, Neut % (Auto) 76.0, Lymph % (Auto) 8.1 L, [place] % (Auto) 12.6 H, Eos % (Auto) 1.7, Baso % (Auto) 0.7, Neut # (Auto) 8.0 H, Lymph # (Auto) 0.9, [place] # (Auto) 1.3 H, Eos # (Auto) 0.2, Baso # (Auto) 0.1, PT 73.8 H, INR 7.74 H, Sodium 128 L, Potassium 7.7 H*, Chloride 91 L, Carbon Dioxide 24, Anion Gap 20.7 H, BUN 56 H, Creatinine 2.10 H, Estimated GFR 24 L, Est GFR ( Amer) 29 L, Glucose 146 H, Calcium 10.5 H, Phosphorus 5.4 H, Magnesium 2.6 H, Total Bilirubin 2.5 H, AST 49 H, ALT 23, Alkaline Phosphatase 174 H, Troponin I 0.04 H, NT-Pro-B Natriuret Pep 67446 H, Total Protein 7.9, Albumin 4.4, Globulin 3.5 H, Albumin/Globulin Ratio 1.3, Free T4 3.53 H, HCV Ab ZENAIDA w/Rflx PCR Qn Negative, HIV Ag/Ab Combo Qual Negative 06/13/25 12:56: VBG pH 7.13 L, VBG pCO2 65.3 H, VBG pO2 57.0 H, VBG HCO3 21.3 L, VBG Total CO2 -7.9 L, VBG O2 Saturation 77.3 H, VBG Base Excess -8.4 L, VBG Lactic Acid 7.7 H 06/13/25 13:40: Urine Color Yellow, Urine Appearance Clear, Urine pH 7.5, Ur Specific [place] 1.010, Urine Protein Negative, Urine Glucose (UA) Negative, Urine Ketones Negative, Urine Blood Negative, Urine Nitrate Negative, Urine Bilirubin Negative, Urine Urobilinogen 4.0, Ur Leukocyte Esterase Negative, Urine RBC None, Urine WBC Occasional, Ur Squamous Epith Cells Occasional, Urine Bacteria Trace 06/13/25 13:47: VBG pH 7.30 L, VBG pCO2 39.2, VBG pO2 187.5 H, VBG HCO3 18.7 L, VBG Total CO2 19.9 L, VBG O2 Saturation 99.5 H, VBG Base Excess -7.2 L, VBG Lactic Acid 7.0 H 06/13/25 17:34: POC Glucose 182 H 06/13/25 18:38: Sodium 126 L, Potassium 6.8 H*, Chloride 94 L, Carbon Dioxide 23, Anion Gap 15.8 H, BUN 58 H, Creatinine 2.20 H, Estimated Creat Clear 38, Estimated GFR 23 L, Est GFR ( Amer) 27 L, Glucose 175 H, Lactate 2.6 H, Calcium 10.0, Magnesium 2.4 H, Total Bilirubin 3.8 H, AST 354 H* D, ALT 80 H D, Alkaline Phosphatase 152 H, Troponin I 0.09 H, Total Protein 6.2 L, Albumin 3.6 D, Globulin 2.6, Albumin/Globulin Ratio 1.4 06/13/25 19:31: POC Glucose 181 H 06/14/25 02:51: POC Glucose 182 H 06/14/25 04:22: WBC 13.1 H, RBC 3.25 L, Hgb 8.4 L D, Hct 28.1 L, MCV 86.5, MCH 27.1, MCHC 31.3 L, RDW 20.9 H, Plt Count 231, MPV 9.9, Neut % (Auto) 86.5 H, Lymph % (Auto) 1.8 L, [place] % (Auto) 9.8 H, Eos % (Auto) 1.2, Baso % (Auto) 0.2, Neut # (Auto) 11.3 H, Lymph # (Auto) 0.2 L, [place] # (Auto) 1.3 H, Eos # (Auto) 0.2, Baso # (Auto) 0.0, Total Counted 100, Neutrophils % (Manual) 90 H, Lymphocytes % (Manual) 3 L, Monocytes % (Manual) 7, Platelet Estimate Normal, RBC Morphology Normal, PT 90.0 H, INR 8.00 H, Sodium 127 L, Potassium 5.8 H, Chloride 93 L, Carbon Dioxide 27, Anion Gap 12.8, BUN 59 H, Creatinine 2.10 H, Estimated Creat Clear 40, Estimated GFR 24 L, Est GFR ( Amer) 29 L, Glucose 161 H, Lactate 1.5, Calcium 9.6, Total Bilirubin 2.9 H, Direct Bilirubin 2.2 H, Conjugated Bilirubin 0.8 H, Indirect Bilirubin 0.7, Unconjugated Bilirubin 0.7, AST 320 H*, ALT 80 H, Alkaline Phosphatase 140 H, Total Protein 6.0 L, Albumin 3.3 L, Triglycerides 170 H, Cholesterol 148, LDL Cholesterol Direct 84.09 L, VLDL Cholesterol 34, HDL Cholesterol 18 L, Cholesterol/HDL Ratio 8.2 H 06/14/25 08:20: POC Glucose 175 H Medical History: Medical History (Updated 06/13/25 @ 16:33 by Misha Quarles MD) Acute on chronic HFrEF (heart failure with reduced ejection fraction) Redness and swelling of lower leg Symptomatic anemia Critical polytrauma Headache Epistaxis Rib pain on right side AICD discharge Non-ST elevation NV (NSTEMI) TRISTAN (acute kidney injury) Hemolytic uremic syndrome Urinary tract infection Infection due to ESBL-producing Escherichia coli Diarrhea Urinary tract infectious disease Encounter for pre-operative cardiovascular clearance Vitamin D deficiency 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 with INR goal of 2.5-3.5 Third degree heart block Junctional escape rhythm Current use of mcfp anticoagulation Afib HFrEF (heart failure with reduced ejection fraction) Partial tear of tendon CHF (NYHA class III, ACC/AHA stage C) Atrial fibrillation, chronic COPD exacerbation CHF exacerbation Anemia Systolic CHF Typical angina Dyspnea Rib fracture Blood transfusion reaction Autoimmune hemolytic anemia Arthritis Hernia Sinus problem Rheumatic heart disease Hypothyroidism Polyarthralgia Pulmonary edema HLD (hyperlipidemia) HTN (hypertension) CAD (coronary artery disease) DM type 2 (diabetes mellitus, type 2) DVT (deep venous thrombosis) Cardiomyopathy Arrhythmia Liver disease Thyroid disease Valvular heart disease Hypertension Hyperlipidemia GERD (gastroesophageal reflux disease) COPD (chronic obstructive pulmonary disease) Class 1 obesity CKD (chronic kidney disease) stage 3, GFR 30-59 ml/min Coronary artery disease Congestive heart failure, NYHA class III NYHA class 3 acute on chronic systolic heart failure Diabetes mellitus Hypertensive heart disease CHF (congestive heart failure) Diastolic heart failure Tricuspid valve regurgitation Assessment and Plan Assessment and plan all Dx Assessment and Plan for all problems:: Pharmacokinetic dosing service Objective: Patient: Floor: Age: 60 yo Serum creatinine: 2.1 mg/dL Height: 64.2 Inches Weight (kg): 91.5 Assessment: IBW (kg): 55.16 Dosing wt(kg): 91.5 Estimated Creatinine clearance (ml/min): 24.2 CRCL method: Cockcroft and Gault using ibw(default). Drug selected: Vancomycin Loading dose (mg): 0 Vd (liters): 73.2 (factor used: 0.8 L/kg) Anthony (hr-1): 0.024 Half life (hrs): 28.88 Recommended dose: 1500 mg Interval: 36 hrs Infusion time (hrs): 2.0 Predicted peak (mcg/mL): 34.6 Predicted trough (mcg/mL): 15.30 Total body weight is being used for vancomycin dosing. Recommendations: Give Vancomycin 1500 mg q 36 hrs with an expected Cpeak of 34.6 mcg/ml and an expected Ctrough of 15.30 mcg/ml ----Vanco only - ignore for aminoglycosides----- CLvanco= 1.76 L/hr AUC 0-24 /KARYN Data: KARYN 0.5 mcg/mL: AUC/KARYN: 1136.4 KARYN 1.0 mcg/mL: AUC/KARYN: 568.2 --------- KARYN 1.5 mcg/mL: AUC/KARYN: 378.8 KARYN 2.0 mcg/mL: AUC/KARYN: 284.1
--- NOTE | 2025-06-14 12:34 | PC.NURSE ---
Celina Back APRN is at bedside to deactivate defibrillator per families request
--- NOTE | 2025-06-14 12:51 | EXP.PULM.CON ---
History of Present Illness History of present illness: Ms. Costa is a 60-year-old female with reported history of heart failure reduced EF pulmonary hypertension diabetes mellitus CKD stage IV atrial fibrillation hypertension dyslipidemia COPD left upper extremity DVT was brought to the ER by EMS with symptoms of respiratory distress and cyanotic, found to be hypotensive in the ER with worsening hypoxia needing intubation mechanical ventilatory support and pulmonary was called for further evaluation and management. [facility] Disclaimer: The information contained in this section may have been updated after the patient was seen, as this information can be updated by other users. Medical History (Updated 06/14/25 @ 12:52 by Lionel Aguero MD) Shock On mechanically assisted ventilation Acute on chronic HFrEF (heart failure with reduced ejection fraction) Redness and swelling of lower leg Symptomatic anemia Critical polytrauma Headache Epistaxis Rib pain on right side AICD discharge Non-ST elevation MO (NSTEMI) TRISTAN (acute kidney injury) Hemolytic uremic syndrome Urinary tract infection Infection due to ESBL-producing Escherichia coli Diarrhea Urinary tract infectious disease Encounter for pre-operative cardiovascular clearance Vitamin D deficiency intermediate frame tender current use of anticoagulants with INR goal of 2.5-3.5 Third degree heart block Junctional escape rhythm Current use of group home anticoagulation Afib HFrEF (heart failure with reduced ejection fraction) Partial tear of tendon CHF (NYHA class III, ACC/AHA stage C) Atrial fibrillation, chronic COPD exacerbation CHF exacerbation Anemia Systolic CHF Typical angina Dyspnea Rib fracture Blood transfusion reaction Autoimmune hemolytic anemia Arthritis Hernia Sinus problem Rheumatic heart disease Hypothyroidism Polyarthralgia Pulmonary edema HLD (hyperlipidemia) HTN (hypertension) CAD (coronary artery disease) DM type 2 (diabetes mellitus, type 2) DVT (deep venous thrombosis) Cardiomyopathy Arrhythmia Liver disease Thyroid disease Valvular heart disease Hypertension Hyperlipidemia GERD (gastroesophageal reflux disease) COPD (chronic obstructive pulmonary disease) Class 1 obesity CKD (chronic kidney disease) stage 3, GFR 30-59 ml/min Coronary artery disease Congestive heart failure, NYHA class III NYHA class 3 acute on chronic systolic heart failure Diabetes mellitus Hypertensive heart disease CHF (congestive heart failure) Diastolic heart failure Tricuspid valve regurgitation Surgical History Presence of biventricular AICD History of mitral valve replacement with mechanical valve Mitral valve replaced History of colon resection H/O tubal ligation History of angioplasty History of renal stent History of ureteroscopy History of tubal ligation History of hernia repair History of cardiac catheterization Family History Other Breast cancer COPD (chronic obstructive pulmonary disease) Colon cancer Family history of acute heart failure Family history of hyperlipidemia Family history of hypertension Family history of myocardial infarction Hypertension Stroke Social History (Updated 06/13/25 @ 19:21 by Lauren Harmon RN) Smoking Status: Unknown if ever smoked smoking status stop date: 01/09/2006 quit status: quit date established second hand exposure: Yes alcohol intake: never substance use type: denies use current occupational status: retired and disabled Travel in the last 8 weeks?: None adopted: No caregiver/support person: No foster care: No household members: significant other housing: house lives independently: Yes marital status: life partner education level: college service: No prison: No current occupational exposures/hazards: No sexually active: Yes how many partners: 1 are you practicing safe sex: Yes diet: diabetic well-balanced diet: about half the time caffeine: No eating out: rarely or never during the past year weight has: remained stable 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: Yazidi special bhavya needs: No agree to transfusion: Yes helmet use: No water heater temp set < 120 deg: Yes working smoke detector in home: Yes fire extinguisher in home: Yes carbon monox detector in home: Yes firearms in home: No do you feel safe at home: Yes victim of physical abuse: No victim of emotional abuse: No victim of sexual abuse: No would you like helpful sources: No Contact w/someone who lives/traveled outside [place] past 30 days?: No Exposure to someone with infectious disease in past 14 days?: No Do you have a fever (greater than 100.4 F or 38 C)?: No Have you tested positive for COVID-19?: No Exposed to someone with COVID-19 in past 14 days?: No Do you have a sore throat?: No Do you have a cough?: No Do you have any weakness?: No Are you experiencing any nausea/vomitting?: No Do you have any diarrhea?: No Are you experiencing any unusual bleeding?: No Do you have any muscle aches/pain?: No Do you have any abdominal pain?: No Are you experiencing loss of taste or smell?: No Review of Systems Review of Systems Review of systems:: unable to obtain Review of systems (narrative): Intubated and sedated Pulmonology Exam Inpatient Vital signs and Labs for Last 24 Hours: Temp Pulse Resp BP Pulse Ox O2 Del Method O2 Flow Rate 99.1 F 119 H 22 84/41 L 92 L Mechanical Ventilation 60 06/14/25 11:46 06/14/25 12:00 06/14/25 11:46 06/14/25 11:46 06/14/25 11:46 06/14/25 11:46 06/13/25 16:20 FiO2 50 06/14/25 11:46 Laboratory Results - last 24 hr 06/13/25 12:53: WBC 10.5, RBC 3.74 L, Hgb 10.1 L, Hct 34.3 L, MCV 91.7, MCH 27.0, MCHC 29.4 L, RDW 21.0 H, Plt Count 288, MPV 9.5, Neut % (Auto) 76.0, Lymph % (Auto) 8.1 L, [place] % (Auto) 12.6 H, Eos % (Auto) 1.7, Baso % (Auto) 0.7, Neut # (Auto) 8.0 H, Lymph # (Auto) 0.9, [place] # (Auto) 1.3 H, Eos # (Auto) 0.2, Baso # (Auto) 0.1, PT 73.8 H, INR 7.74 H, Sodium 128 L, Potassium 7.7 H*, Chloride 91 L, Carbon Dioxide 24, Anion Gap 20.7 H, BUN 56 H, Creatinine 2.10 H, Estimated GFR 24 L, Est GFR ( Amer) 29 L, Glucose 146 H, Calcium 10.5 H, Phosphorus 5.4 H, Magnesium 2.6 H, Total Bilirubin 2.5 H, AST 49 H, ALT 23, Alkaline Phosphatase 174 H, Troponin I 0.04 H, NT-Pro-B Natriuret Pep 05847 H, Total Protein 7.9, Albumin 4.4, Globulin 3.5 H, Albumin/Globulin Ratio 1.3, Free T4 3.53 H, HCV Ab ZENAIDA w/Rflx PCR Qn Negative, HIV Ag/Ab Combo Qual Negative 06/13/25 12:56: VBG pH 7.13 L, VBG pCO2 65.3 H, VBG pO2 57.0 H, VBG HCO3 21.3 L, VBG Total CO2 -7.9 L, VBG O2 Saturation 77.3 H, VBG Base Excess -8.4 L, VBG Lactic Acid 7.7 H 06/13/25 13:40: Urine Color Yellow, Urine Appearance Clear, Urine pH 7.5, Ur Specific [place] 1.010, Urine Protein Negative, Urine Glucose (UA) Negative, Urine Ketones Negative, Urine Blood Negative, Urine Nitrate Negative, Urine Bilirubin Negative, Urine Urobilinogen 4.0, Ur Leukocyte Esterase Negative, Urine RBC None, Urine WBC Occasional, Ur Squamous Epith Cells Occasional, Urine Bacteria Trace 06/13/25 13:47: VBG pH 7.30 L, VBG pCO2 39.2, VBG pO2 187.5 H, VBG HCO3 18.7 L, VBG Total CO2 19.9 L, VBG O2 Saturation 99.5 H, VBG Base Excess -7.2 L, VBG Lactic Acid 7.0 H 06/13/25 17:34: POC Glucose 182 H 06/13/25 18:38: Sodium 126 L, Potassium 6.8 H*, Chloride 94 L, Carbon Dioxide 23, Anion Gap 15.8 H, BUN 58 H, Creatinine 2.20 H, Estimated Creat Clear 38, Estimated GFR 23 L, Est GFR ( Amer) 27 L, Glucose 175 H, Lactate 2.6 H, Calcium 10.0, Magnesium 2.4 H, Total Bilirubin 3.8 H, AST 354 H* D, ALT 80 H D, Alkaline Phosphatase 152 H, Troponin I 0.09 H, Total Protein 6.2 L, Albumin 3.6 D, Globulin 2.6, Albumin/Globulin Ratio 1.4 06/13/25 19:31: POC Glucose 181 H 06/14/25 02:51: POC Glucose 182 H 06/14/25 04:22: WBC 13.1 H, RBC 3.25 L, Hgb 8.4 L D, Hct 28.1 L, MCV 86.5, MCH 27.1, MCHC 31.3 L, RDW 20.9 H, Plt Count 231, MPV 9.9, Neut % (Auto) 86.5 H, Lymph % (Auto) 1.8 L, [place] % (Auto) 9.8 H, Eos % (Auto) 1.2, Baso % (Auto) 0.2, Neut # (Auto) 11.3 H, Lymph # (Auto) 0.2 L, [place] # (Auto) 1.3 H, Eos # (Auto) 0.2, Baso # (Auto) 0.0, Total Counted 100, Neutrophils % (Manual) 90 H, Lymphocytes % (Manual) 3 L, Monocytes % (Manual) 7, Platelet Estimate Normal, RBC Morphology Normal, PT 90.0 H, INR 8.00 H, Sodium 127 L, Potassium 5.8 H, Chloride 93 L, Carbon Dioxide 27, Anion Gap 12.8, BUN 59 H, Creatinine 2.10 H, Estimated Creat Clear 40, Estimated GFR 24 L, Est GFR ( Amer) 29 L, Glucose 161 H, Lactate 1.5, Calcium 9.6, Total Bilirubin 2.9 H, Direct Bilirubin 2.2 H, Conjugated Bilirubin 0.8 H, Indirect Bilirubin 0.7, Unconjugated Bilirubin 0.7, AST 320 H*, ALT 80 H, Alkaline Phosphatase 140 H, Total Protein 6.0 L, Albumin 3.3 L, Triglycerides 170 H, Cholesterol 148, LDL Cholesterol Direct 84.09 L, VLDL Cholesterol 34, HDL Cholesterol 18 L, Cholesterol/HDL Ratio 8.2 H 06/14/25 08:20: POC Glucose 175 H I & O for Labs for Last 24 Hours: Intake & Output 06/11/25 06/12/25 06/13/25 06/14/25 23:59 23:59 23:59 23:59 Intake Total 417.749 / 417.749 772.141 / 772.141 Output Total 510 / 860 1825 / 1825 Balance -92.251 / -442.251 -1052.859 / -1052.859 Weight 201 lb 11.215 oz 201 lb 12.8 oz Microbiology Reports for the Last 24 Hours: Microbiology 06/13/25 13:28 Sputum - Endotracheal Tube Aspirate Gram Stain - Final Constitutional: Present severe distress Comment:: Intubated and Sedated Head: Present normocephalic and atraumatic Neck: Present normal inspection and trachea midline Respiratory: Present patient mechanically ventilated, prolonged expiratory phase, rhonchi and wheezes Cardiac: Present S1/S2 and Tachycardia GI: Present soft; Absent distention or tenderness Skin: Present intact; Absent cyanosis Neuro: Absent alert, awake or oriented x 3 Comment:: Intubated and sedated Extremities: Absent normal inspection, clubbing or cyanosis Psychiatric: Present unable to assess Meds Home Medications and Allergies Home Medications ?Medication ?Instructions ?Recorded ?Confirmed ?Type oxycodone-acetaminophen 10 mg-325 1 tab PO QID 05/23/18 06/14/25 History mg tablet (Percocet) alprazolam 0.5 mg tablet (Xanax) 0.5 mg PO TID 11/29/19 06/14/25 History levothyroxine 25 mcg tablet 25 mcg PO DAILY 06/05/21 06/14/25 History insulin glargine 100 60 units SQ DAILY 02/22/22 06/14/25 History unit-lixisenatide 33 mcg/mL subcutaneous pen (Soliqua 100/33) febuxostat 40 mg tablet 40 mg PO DAILY 02/09/23 06/14/25 History potassium chloride 20 mEq 20 meq PO BID 04/15/23 06/14/25 History tablet,extended release(part/cryst) calcitriol 0.25 mcg capsule 0.25 mcg PO DAILY 10/30/23 06/14/25 History duloxetine 60 mg capsule,delayed 60 mg PO HS 03/06/24 06/14/25 History release empagliflozin 10 mg tablet 10 mg PO DAILY #30 tabs 07/17/24 06/14/25 Rx (Jardiance) warfarin 4 mg tablet 2 mg (1/2 x 4 mg) PO DAILY 30 days 01/05/25 06/14/25 Rx #0 tabs insulin glargine 100 unit/mL (3 14 unit SQ HS 01/17/25 06/14/25 History mL) subcutaneous pen (Lantus Solostar U-100 Insulin) amiodarone 200 mg tablet 200 mg PO DAILY #90 tabs 04/02/25 06/14/25 Rx blood-glucose sensor (Dexcom G6 #1 ea 04/05/25 06/14/25 History Sensor device) blood-glucose transmitter (Dexcom #1 ea 04/05/25 06/14/25 History G6 Transmitter device) blood-glucose,boat and plant utility supervisor,cont #1 ea 04/05/25 06/14/25 History (Dexcom G6 Hydrochloric Acid Operator) dexlansoprazole 60 mg 60 mg PO DAILY 04/05/25 06/14/25 History capsule,biphase delayed release pen needle, diabetic 32 gauge x #1,200 ea 04/05/25 06/14/25 History metoprolol succinate 25 mg 50 mg (2 x 25 mg) PO DAILY 30 days 04/12/25 06/14/25 Rx tablet,extended release 24 hr #60 tabs bumetanide 2 mg tablet 3 mg PO BID 05/29/25 06/14/25 History spironolactone 50 mg tablet 50 mg PO BID 05/30/25 06/14/25 History metolazone 2.5 mg tablet 2.5 mg PO BID 30 days #60 tabs 06/01/25 06/14/25 Rx albuterol sulfate 90 mcg/actuation 2 puff inhalation Q4HP PRN Wheezing 06/14/25 06/14/25 History aerosol inhaler New Prescriptions to Start Prescriptions: Allergies Allergy/AdvReac Type Severity Reaction Status Date / Time codeine (CODEINE) Allergy Unknown nausea, Verified 05/29/25 13:11 swelling Corticosteroids Allergy Unknown Unknown Verified 05/29/25 13:11 (Glucocorticoids) allergy (CORTICOSTEROIDS reaction (GLUCOCORTICOIDS)) NSAIDS (Non-Steroidal Allergy Unknown Other Verified 05/29/25 13:11 Anti-Inflamma rosuvastatin (From CRESTOR) Allergy Unknown Unknown Verified 05/29/25 13:11 allergy reaction theophylline (From DAVID-DUR) Allergy Unknown Unknown Verified 05/29/25 13:11 allergy reaction allopurinol Allergy Hives Verified 05/29/25 13:11 Iodinated Contrast Media AdvReac Severe shuts Verified 05/29/25 13:11 (IODINATED CONTRAST- ORAL kidneys AND IV DYE) down and bleeding buprenorphine (From BUPRENEX) AdvReac Intermediate Nausea Verified 05/29/25 13:11 levofloxacin (From Levaquin) AdvReac Other Verified 05/29/25 13:11 lisinopril AdvReac Cough Verified 05/29/25 13:11 prednisone AdvReac Unknown Verified 05/29/25 13:11 allergy reaction sacubitril (From Entresto) AdvReac Hypotension Verified 05/29/25 13:11 valsartan (From Entresto) AdvReac Hypotension Verified 05/29/25 13:11 Results Laboratory Findings 06/14/25 04:22 06/14/25 04:22 PT/INR, D-dimer PT 90.0 seconds (10.1-12.5) H 06/14/25 04:22 INR 8.00 (0.9-1.1) H 06/14/25 04:22 Abnormal lab findings: Abnormal Labs 06/13/25 06/13/25 06/13/25 12:53 12:56 13:47 WBC RBC 3.74 L Hgb 10.1 L Hct 34.3 L MCHC 29.4 L RDW 21.0 H Neut % (Auto) Lymph % (Auto) 8.1 L [place] % (Auto) 12.6 H Neut # (Auto) 8.0 H Lymph # (Auto) [place] # (Auto) 1.3 H Neutrophils % (Manual) Lymphocytes % (Manual) PT 73.8 H INR 7.74 H VBG pH 7.13 L 7.30 L VBG pCO2 65.3 H VBG pO2 57.0 H 187.5 H VBG HCO3 21.3 L 18.7 L VBG Total CO2 -7.9 L 19.9 L VBG O2 Saturation 77.3 H 99.5 H VBG Base Excess -8.4 L -7.2 L VBG Lactic Acid 7.7 H 7.0 H Sodium 128 L Potassium 7.7 H* Chloride 91 L Anion Gap 20.7 H BUN 56 H Creatinine 2.10 H Estimated GFR 24 L Est GFR ( Amer) 29 L Glucose 146 H POC Glucose Lactate Calcium 10.5 H Phosphorus 5.4 H Magnesium 2.6 H Total Bilirubin 2.5 H Direct Bilirubin Conjugated Bilirubin AST 49 H ALT Alkaline Phosphatase 174 H Troponin I 0.04 H NT-Pro-B Natriuret Pep 88451 H Total Protein Albumin Globulin 3.5 H Triglycerides LDL Cholesterol Direct HDL Cholesterol Cholesterol/HDL Ratio Free T4 3.53 H 06/13/25 06/13/25 06/13/25 17:34 18:38 19:31 WBC RBC Hgb Hct MCHC RDW Neut % (Auto) Lymph % (Auto) [place] % (Auto) Neut # (Auto) Lymph # (Auto) [place] # (Auto) Neutrophils % (Manual) Lymphocytes % (Manual) PT INR VBG pH VBG pCO2 VBG pO2 VBG HCO3 VBG Total CO2 VBG O2 Saturation VBG Base Excess VBG Lactic Acid Sodium 126 L Potassium 6.8 H* Chloride 94 L Anion Gap 15.8 H BUN 58 H Creatinine 2.20 H Estimated GFR 23 L Est GFR ( Amer) 27 L Glucose 175 H POC Glucose 182 H 181 H Lactate 2.6 H Calcium Phosphorus Magnesium 2.4 H Total Bilirubin 3.8 H Direct Bilirubin Conjugated Bilirubin AST 354 H* D ALT 80 H D Alkaline Phosphatase 152 H Troponin I 0.09 H NT-Pro-B Natriuret Pep Total Protein 6.2 L Albumin Globulin Triglycerides LDL Cholesterol Direct HDL Cholesterol Cholesterol/HDL Ratio Free T4 06/14/25 06/14/25 06/14/25 02:51 04:22 08:20 WBC 13.1 H RBC 3.25 L Hgb 8.4 L D Hct 28.1 L MCHC 31.3 L RDW 20.9 H Neut % (Auto) 86.5 H Lymph % (Auto) 1.8 L [place] % (Auto) 9.8 H Neut # (Auto) 11.3 H Lymph # (Auto) 0.2 L [place] # (Auto) 1.3 H Neutrophils % (Manual) 90 H Lymphocytes % (Manual) 3 L PT 90.0 H INR 8.00 H VBG pH VBG pCO2 VBG pO2 VBG HCO3 VBG Total CO2 VBG O2 Saturation VBG Base Excess VBG Lactic Acid Sodium 127 L Potassium 5.8 H Chloride 93 L Anion Gap BUN 59 H Creatinine 2.10 H Estimated GFR 24 L Est GFR ( Amer) 29 L Glucose 161 H POC Glucose 182 H 175 H Lactate Calcium Phosphorus Magnesium Total Bilirubin 2.9 H Direct Bilirubin 2.2 H Conjugated Bilirubin 0.8 H AST 320 H* ALT 80 H Alkaline Phosphatase 140 H Troponin I NT-Pro-B Natriuret Pep Total Protein 6.0 L Albumin 3.3 L Globulin Triglycerides 170 H LDL Cholesterol Direct 84.09 L HDL Cholesterol 18 L Cholesterol/HDL Ratio 8.2 H Free T4 Assessment and Plan *Assessment and plan (1) On mechanically assisted ventilation: Status: Acute Category: Medical Code(s): Z99.11 - Dependence on respirator [ventilator] status (2) Shock: Status: Acute Category: Medical Code(s): R57.9 - Shock, unspecified Plan Ms. Costa is a 60-year-old female with reported history of heart failure reduced EF pulmonary hypertension diabetes mellitus CKD stage IV atrial fibrillation hypertension dyslipidemia COPD left upper extremity DVT was brought to the ER by EMS with symptoms of respiratory distress and cyanotic, found to be hypotensive in the ER with worsening hypoxia needing intubation mechanical ventilatory support and pulmonary was called for further evaluation and management. Patient currently being managed for cardiogenic shock on milrinone. The plan was to wean the patient off Levophed. Continue to receive propofol and fentanyl. Blood cultures pending. Prior cultures growing E. coli sensitive to Zosyn. On staph sensitive to vancomycin. Currently receiving vancomycin and Zosyn. Chest x-ray postintubation cardiomegaly ET tube right mainstem, retracted. Echocardiogram did not show any evidence of pericardial effusion. On minimal ventilator settings, PEEP of 5 FiO2 of 50% with rate of 22 on tidal volume of 410 Case and prognosis discussed with the family along with Dr. Sawyer. Family is leaning for comfort care at this point of time. However they would like to attempt extubation. Awaiting final famly decision and her clinical course. Patient currently DNR. Final CODE STATUS pending family decision if pt were to be extubated. Will follow INR supratherapeutic upon admission. Plan: Continue analogous sedation with propofol and fentanyl Continue current mechanical ventilatory settings with PEEP of 5 FiO2 50%, rate of 22 and tidal volume of 410. Saturations at 95% and above. Follow with repeat chest x-ray. Continue vancomycin and Zosyn pending blood and tracheal aspirate culture results Hemodynamically unstable likely from cardiogenic shock. Cardiology following Supratherapeutic INR. Vitamin K IV. Will follow with INR. TRISTAN on CKD. Oliguric. Renally dose medications. Hyperkalemia at 5.8. Abdomen soft nondistended. Elevated AST ALT likely from hepatic congestion and cardiogenic shock. Will follow-up - Continue mechanical ventilatory support - Continue AnalgoSedation with Propofol and Fentanyl with CPOT gal less than or euqal to 2 and RASS goal of to 2 (No need for deep sedation) - VAP bundle Recommend elevate head of the bed at 30 to 45 degrees Recommend oral care with chlorhexidne Recommend GI ulcer prophylaxis - Famotidine 20mg IV BID Recommend chemical DVT prophylaxis Total critical care time spent on this patient is 35 minutes managing acute hypoxic respiratory failure needing mechanical ventilation. This time spent include reviewing test results including interpreting chest x-rays, labs and arterial blood gas, optimizing the ventilator settings,formulating plan of care, discussing the plan of care with the team and the nursing staff.
--- NOTE | 2025-06-14 12:55 | XR_ITS ---
FINAL REPORT CLINICAL HISTORY: MV, intubated COMPARISON: 06/13/2025 FINDINGS: No acute pulmonary opacity is present. There is no evidence of effusion or pneumothorax. Mediastinum is unremarkable. There is severe cardiomegaly. The support devices are stable. IMPRESSION: No significant change. Reviewed, Interpreted and Dictated by Abiel Land MD Transcribed by Beatriz Sauer Authenticated and [facility]
[2025-06-14] MEDS: PHYTONADIONE 5 MG in 0.9 % SODIUM CHLORIDE 50 ML 100 MG IV (13:30)
[2025-06-14 14:02] LABS: POC Glucose,Bedside 145 (70-110)
[2025-06-14] MEDS: DOBUTAMINE HCL/D5W 250 ML 13.73 MG IV ×2 (14:05→14:21)
--- NOTE | 2025-06-14 15:05 | EXP.CARD.CON ---
History of Present Illness History of Present Illness Consult date: 06/14/25 Requesting physician: Beata Connor Consult reason: shortness of breath Chief complaint: Shortness of breath History of present illness: This is a 60-year-old female who presented to the emergency department with shortness of breath and dyspnea. The patient was hypoxemic and in what appeared to be ventricular tachycardia. The patient had severe shortness of breath with orthopnea and cyanosis. She has a past medical history of HFrEF, iron deficiency anemia, pulmonary hypertension, chronic kidney disease stage IV, atrial fibrillation, hypertension and hyperlipidemia. She is on chronic Coumadin due to mechanical mitral valve. She also has a DVT in her left upper extremity which she developed while being on her Coumadin. Upon arrival to the emergency department the patient was critically ill. She was poorly perfused and cyanotic. She had bilateral lower extremity edema and edema in her left upper extremity as well. While in the emergency department her mental status became altered. She had an arrhythmia on telemetry which was wide complex tachycardia. She was given amiodarone and then underwent synchronized cardioversion which was successful to get her back into a paced rhythm. The patient's oxygen saturations were between 60 and 80%. She was bagged initially and then intubated and started on mechanical ventilation. She was also treated with IV epi and started on a Levophed drip while in the emergency department. Cardiology was consulted while she was in the emergency department and ultimately no intervention was recommended for her due to her multiple comorbidities and her end-stage heart failure. This morning the patient remains intubated on mechanical ventilation. She is on a milrinone drip and IV Bumex. She is also on the Levophed drip for blood pressure support. Her vital signs are currently stable. All of her history is obtained from her chart. The patient is currently sedated on mechanical ventilation [facility] Disclaimer: The information contained in this section may have been updated after the patient was seen, as this information can be updated by other users. 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 with INR goal of 2.5-3.5 Third degree heart block Junctional escape rhythm Current use of termite exterminator anticoagulation Afib HFrEF (heart failure with reduced ejection fraction) Partial tear of tendon CHF (NYHA class III, ACC/AHA stage C) Atrial fibrillation, chronic COPD exacerbation CHF exacerbation Anemia Systolic CHF Typical angina Dyspnea Rib fracture Blood transfusion reaction Autoimmune hemolytic anemia Arthritis Hernia Sinus problem Rheumatic heart disease Hypothyroidism Polyarthralgia Pulmonary edema HLD (hyperlipidemia) HTN (hypertension) CAD (coronary artery disease) DM type 2 (diabetes mellitus, type 2) DVT (deep venous thrombosis) Cardiomyopathy Arrhythmia Liver disease Thyroid disease Valvular heart disease Hypertension Hyperlipidemia GERD (gastroesophageal reflux disease) COPD (chronic obstructive pulmonary disease) Class 1 obesity CKD (chronic kidney disease) stage 3, GFR 30-59 ml/min Coronary artery disease Congestive heart failure, NYHA class III NYHA class 3 acute on chronic systolic heart failure Diabetes mellitus Hypertensive heart disease CHF (congestive heart failure) Diastolic heart failure Tricuspid valve regurgitation Surgical History Presence of biventricular AICD History of mitral valve replacement with mechanical valve Mitral valve replaced History of colon resection H/O tubal ligation History of angioplasty History of renal stent History of ureteroscopy History of tubal ligation History of hernia repair History of cardiac catheterization Family History Other Breast cancer COPD (chronic obstructive pulmonary disease) Colon cancer Family history of acute heart failure Family history of hyperlipidemia Family history of hypertension Family history of myocardial infarction Hypertension Stroke Social History (Updated 06/13/25 @ 19:21 by Lauren Harmon RN) Smoking Status: Unknown if ever smoked smoking status stop date: 01/09/2006 quit status: quit date established second hand exposure: Yes alcohol intake: never substance use type: denies use current occupational status: retired and disabled Travel in the last 8 weeks?: None adopted: No caregiver/support person: No foster care: No household members: significant other housing: house lives independently: Yes marital status: life partner education level: college service: No skilled nursing: No current occupational exposures/hazards: No sexually active: Yes how many partners: 1 are you practicing safe sex: Yes diet: diabetic well-balanced diet: about half the time caffeine: No eating out: rarely or never during the past year weight has: remained stable bhavya/pentecostal: Pentecostalism special bhavya needs: No agree to transfusion: Yes helmet use: No water heater temp set < 120 deg: Yes working smoke detector in home: Yes fire extinguisher in home: Yes carbon monox detector in home: Yes firearms in home: No do you feel safe at home: Yes victim of physical abuse: No victim of emotional abuse: No victim of sexual abuse: No would you like helpful sources: No Contact w/someone who lives/traveled outside [place] past 30 days?: No Exposure to someone with infectious disease in past 14 days?: No Do you have a fever (greater than 100.4 F or 38 C)?: No Have you tested positive for COVID-19?: No Exposed to someone with COVID-19 in past 14 days?: No Do you have a sore throat?: No Do you have a cough?: No Do you have any weakness?: No Are you experiencing any nausea/vomitting?: No Do you have any diarrhea?: No Are you experiencing any unusual bleeding?: No Do you have any muscle aches/pain?: No Do you have any abdominal pain?: No Are you experiencing loss of taste or smell?: No Review of Systems Review of Systems Review of systems:: unable to obtain Exam Data for Last 24 hours Vital signs and Labs for Last 24 Hours: Temp Pulse Resp BP Pulse Ox O2 Del Method O2 Flow Rate 98.6 F 120 H 22 65/37 L 94 L Mechanical Ventilation 60 06/14/25 13:00 06/14/25 13:00 06/14/25 14:14 06/14/25 13:00 06/14/25 14:14 06/14/25 13:07 06/13/25 16:20 FiO2 50 06/14/25 14:14 Laboratory Results - last 24 hr 06/13/25 12:53: Free T4 3.53 H, HCV Ab ZENAIDA w/Rflx PCR Qn Negative, HIV Ag/Ab Combo Qual Negative 06/13/25 17:34: POC Glucose 182 H 06/13/25 18:38: Sodium 126 L, Potassium 6.8 H*, Chloride 94 L, Carbon Dioxide 23, Anion Gap 15.8 H, BUN 58 H, Creatinine 2.20 H, Estimated Creat Clear 38, Estimated GFR 23 L, Est GFR ( Amer) 27 L, Glucose 175 H, Lactate 2.6 H, Calcium 10.0, Magnesium 2.4 H, Total Bilirubin 3.8 H, AST 354 H* D, ALT 80 H D, Alkaline Phosphatase 152 H, Troponin I 0.09 H, Total Protein 6.2 L, Albumin 3.6 D, Globulin 2.6, Albumin/Globulin Ratio 1.4 06/13/25 19:31: POC Glucose 181 H 06/14/25 02:51: POC Glucose 182 H 06/14/25 04:22: WBC 13.1 H, RBC 3.25 L, Hgb 8.4 L D, Hct 28.1 L, MCV 86.5, MCH 27.1, MCHC 31.3 L, RDW 20.9 H, Plt Count 231, MPV 9.9, Neut % (Auto) 86.5 H, Lymph % (Auto) 1.8 L, [place] % (Auto) 9.8 H, Eos % (Auto) 1.2, Baso % (Auto) 0.2, Neut # (Auto) 11.3 H, Lymph # (Auto) 0.2 L, [place] # (Auto) 1.3 H, Eos # (Auto) 0.2, Baso # (Auto) 0.0, Total Counted 100, Neutrophils % (Manual) 90 H, Lymphocytes % (Manual) 3 L, Monocytes % (Manual) 7, Platelet Estimate Normal, RBC Morphology Normal, PT 90.0 H, INR 8.00 H, Sodium 127 L, Potassium 5.8 H, Chloride 93 L, Carbon Dioxide 27, Anion Gap 12.8, BUN 59 H, Creatinine 2.10 H, Estimated Creat Clear 40, Estimated GFR 24 L, Est GFR ( Amer) 29 L, Glucose 161 H, Lactate 1.5, Calcium 9.6, Total Bilirubin 2.9 H, Direct Bilirubin 2.2 H, Conjugated Bilirubin 0.8 H, Indirect Bilirubin 0.7, Unconjugated Bilirubin 0.7, AST 320 H*, ALT 80 H, Alkaline Phosphatase 140 H, Total Protein 6.0 L, Albumin 3.3 L, Triglycerides 170 H, Cholesterol 148, LDL Cholesterol Direct 84.09 L, VLDL Cholesterol 34, HDL Cholesterol 18 L, Cholesterol/HDL Ratio 8.2 H 06/14/25 08:20: POC Glucose 175 H 06/14/25 13:54: POC Glucose 145 H I & O for Last 24 hours: Intake & Output 06/11/25 06/12/25 06/13/25 06/14/25 23:59 23:59 23:59 23:59 Intake Total 417.749 / 417.749 882.415 / 882.415 Output Total 510 / 860 1825 / 1825 Balance -92.251 / -442.251 -942.585 / -942.585 Weight 201 lb 11.215 oz 201 lb 12.8 oz Microbiology Reports for the Last 24 Hours: Microbiology 06/13/25 14:46 Blood Blood Culture - Preliminary NO GROWTH AFTER 24 HOURS 06/13/25 14:55 Blood Blood Culture - Preliminary NO GROWTH AFTER 24 HOURS 06/13/25 13:28 Sputum - Endotracheal Tube Aspirate Gram Stain - Final Constitutional Constitutional: obese and chronically ill appearing *Routine HEENT Exam Head: Present normocephalic and atraumatic ENT: Present mucous membranes moist *Routine Neck Exam Neck: Present normal carotid upstroke; Absent JVD, carotid bruit or lymphadenopathy *Routine Respiratory Exam Respiratory: Present patient mechanically ventilated, rhonchi and wheezes *Routine Cardiovascular Exam Cardiovascular: Present Normal S1, Normal S2, murmur, click, tachycardia and irregularly irregular; Absent gallop *Routine Abdominal Exam Abdominal: Present soft and normoactive bowel sounds; Absent distended or organomegaly *Routine Extremities Exam Extremities: Present edema and pulses intact; Absent cyanosis or clubbing *Routine Skin Exam Skin: Present intact and warm; Absent erythema *Routine Neurological Exam Neurological: Present altered mental status Routine Psychiatric Exam Psychiatric: Present unable to assess Meds Home Medications and Allergies Home Medications ?Medication ?Instructions ?Recorded ?Confirmed ?Type oxycodone-acetaminophen 10 mg-325 1 tab PO QID 05/23/18 06/14/25 History mg tablet (Percocet) alprazolam 0.5 mg tablet (Xanax) 0.5 mg PO TID 11/29/19 06/14/25 History levothyroxine 25 mcg tablet 25 mcg PO DAILY 06/05/21 06/14/25 History insulin glargine 100 60 units SQ DAILY 02/22/22 06/14/25 History unit-lixisenatide 33 mcg/mL subcutaneous pen (Soliqua 100/33) febuxostat 40 mg tablet 40 mg PO DAILY 02/09/23 06/14/25 History potassium chloride 20 mEq 20 meq PO BID 04/15/23 06/14/25 History tablet,extended release(part/cryst) calcitriol 0.25 mcg capsule 0.25 mcg PO DAILY 10/30/23 06/14/25 History duloxetine 60 mg capsule,delayed 60 mg PO HS 03/06/24 06/14/25 History release empagliflozin 10 mg tablet 10 mg PO DAILY #30 tabs 07/17/24 06/14/25 Rx (Jardiance) warfarin 4 mg tablet 2 mg (1/2 x 4 mg) PO DAILY 30 days 01/05/25 06/14/25 Rx #0 tabs insulin glargine 100 unit/mL (3 14 unit SQ HS 01/17/25 06/14/25 History mL) subcutaneous pen (Lantus Solostar U-100 Insulin) amiodarone 200 mg tablet 200 mg PO DAILY #90 tabs 04/02/25 06/14/25 Rx blood-glucose sensor (Dexcom G6 #1 ea 04/05/25 06/14/25 History Sensor device) blood-glucose transmitter (Dexcom #1 ea 04/05/25 06/14/25 History G6 Transmitter device) blood-glucose,mechanical apprentice,cont #1 ea 04/05/25 06/14/25 History (Dexcom G6 Box Nailer) dexlansoprazole 60 mg 60 mg PO DAILY 04/05/25 06/14/25 History capsule,biphase delayed release pen needle, diabetic 32 gauge x #1,200 ea 04/05/25 06/14/25 History metoprolol succinate 25 mg 50 mg (2 x 25 mg) PO DAILY 30 days 04/12/25 06/14/25 Rx tablet,extended release 24 hr #60 tabs bumetanide 2 mg tablet 3 mg PO BID 05/29/25 06/14/25 History spironolactone 50 mg tablet 50 mg PO BID 05/30/25 06/14/25 History metolazone 2.5 mg tablet 2.5 mg PO BID 30 days #60 tabs 06/01/25 06/14/25 Rx albuterol sulfate 90 mcg/actuation 2 puff inhalation Q4HP PRN Wheezing 06/14/25 06/14/25 History aerosol inhaler New Prescriptions to Start Prescriptions: Allergies Allergy/AdvReac Type Severity Reaction Status Date / Time codeine (CODEINE) Allergy Unknown nausea, Verified 05/29/25 13:11 swelling Corticosteroids Allergy Unknown Unknown Verified 05/29/25 13:11 (Glucocorticoids) allergy (CORTICOSTEROIDS reaction (GLUCOCORTICOIDS)) NSAIDS (Non-Steroidal Allergy Unknown Other Verified 05/29/25 13:11 Anti-Inflamma rosuvastatin (From CRESTOR) Allergy Unknown Unknown Verified 05/29/25 13:11 allergy reaction theophylline (From DAVID-DUR) Allergy Unknown Unknown Verified 05/29/25 13:11 allergy reaction allopurinol Allergy Hives Verified 05/29/25 13:11 Iodinated Contrast Media AdvReac Severe shuts Verified 05/29/25 13:11 (IODINATED CONTRAST- ORAL kidneys AND IV DYE) down and bleeding buprenorphine (From BUPRENEX) AdvReac Intermediate Nausea Verified 05/29/25 13:11 levofloxacin (From Levaquin) AdvReac Other Verified 05/29/25 13:11 lisinopril AdvReac Cough Verified 05/29/25 13:11 prednisone AdvReac Unknown Verified 05/29/25 13:11 allergy reaction sacubitril (From Entresto) AdvReac Hypotension Verified 05/29/25 13:11 valsartan (From Entresto) AdvReac Hypotension Verified 05/29/25 13:11 Assessment and Plan *Assessment and plan (1) Shock: Status: Acute Category: Medical Code(s): R57.9 - Shock, unspecified (2) On mechanically assisted ventilation: Status: Acute Category: Medical Code(s): Z99.11 - Dependence on respirator [ventilator] status (3) Sepsis: Status: Acute Qualifiers: Sepsis type: sepsis due to unspecified organism Sepsis acute organ dysfunction status: with acute organ dysfunction Severe sepsis acute organ dysfunction type: unspecified Severe sepsis shock status: with septic shock Qualified Code(s): A41.9 - Sepsis, unspecified organism; R65.21 - Severe sepsis with septic shock Category: Medical Code(s): A41.9 - Sepsis, unspecified organism (4) Acute and chronic respiratory failure with hypoxia: Status: Acute Category: Medical Code(s): J96.21 - Acute and chronic respiratory failure with hypoxia (5) V tach: Status: Acute Category: Medical Code(s): I47.20 - Ventricular tachycardia, unspecified (6) Acute hyperkalemia: Status: Acute Category: Medical Code(s): E87.5 - Hyperkalemia (7) Acute on chronic HFrEF (heart failure with reduced ejection fraction): Status: Acute Category: Medical Code(s): I50.23 - Acute on chronic systolic (congestive) heart failure (8) Thrombosis of left upper extremity: Status: Acute Category: Medical Code(s): I82.602 - Acute embolism and thrombosis of unspecified veins of left upper extremity (9) Iron deficiency anemia: Status: Acute Qualifiers: Iron deficiency anemia type: unspecified iron deficiency Qualified Code(s): D50.9 - Iron deficiency anemia, unspecified Category: Medical Code(s): D50.9 - Iron deficiency anemia, unspecified (10) Presence of biventricular AICD: Status: Acute Category: Surgical Code(s): Z95.810 - Presence of automatic (implantable) cardiac defibrillator (11) History of mitral valve replacement with mechanical valve: Status: Acute Category: Surgical Code(s): Z95.2 - Presence of prosthetic heart valve (12) Current use of usp anticoagulation: Status: Acute Category: Medical Code(s): Z79.01 - jail (current) use of anticoagulants (13) Pulmonary hypertension: Status: Suspected Category: Medical Code(s): I27.20 - Pulmonary hypertension, unspecified (14) Diabetes mellitus: Status: Acute Qualifiers: Diabetes mellitus complication status: without complication Diabetes mellitus type: type 1 Qualified Code(s): E10.9 - Type 1 diabetes mellitus without complications Category: Medical Code(s): E11.9 - Type 2 diabetes mellitus without complications (15) CKD (chronic kidney disease) stage 4, GFR 15-29 ml/min: Status: Acute Category: Medical Code(s): N18.4 - Chronic kidney disease, stage 4 (severe) (16) Atrial fibrillation, chronic: Status: Acute Category: Medical Code(s): I48.20 - Chronic atrial fibrillation, unspecified (17) Hyperlipidemia: Status: Acute Qualifiers: Hyperlipidemia type: unspecified Qualified Code(s): E78.5 - Hyperlipidemia, unspecified Category: Medical Code(s): E78.5 - Hyperlipidemia, unspecified (18) HTN (hypertension): Status: Acute Qualifiers: Hypertension type: unspecified Qualified Code(s): I10 - Essential (primary) hypertension Category: Medical Code(s): I10 - Essential (primary) hypertension (19) Dyspnea: Status: Acute Qualifiers: Dyspnea type: dyspnea on exertion Qualified Code(s): R06.09 - Other forms of dyspnea Category: Medical Code(s): R06.00 - Dyspnea, unspecified (20) COPD (chronic obstructive pulmonary disease): Status: Acute Qualifiers: COPD type: unspecified COPD Qualified Code(s): J44.9 - Chronic obstructive pulmonary disease, unspecified Category: Medical Code(s): J44.9 - Chronic obstructive pulmonary disease, unspecified Plan Plan: 1. The patient was admitted to the hospital with shortness of breath and cardiogenic shock. She has been started on a milrinone drip and Bumex. She is hypotensive today so we will stop the milrinone drip which can worsen her hypotension and start her on a dobutamine drip at 5 mcg. She needs inotropic support right now for her cardiogenic shock and heart failure. 2. She does have acute on chronic HFrEF. Continue the Bumex drip at this time. 3. The patient is currently on a Levophed drip for blood pressure support. Will stop the Levophed drip. She does not need a vasopressor at this time which can worsen her cardiac output. Stop the Levophed and switch her milrinone to dobutamine to see if this will give her better blood pressure support. 4. The patient has a history of a mechanical mitral valve and also has a thrombus to her left upper extremity. Her INR is 8 today. Her Coumadin has been held. 5. The patient has a history of normal coronary arteries. No plans for invasive left cardiac catheterization at this time. 6. The patient is intubated and on mechanical ventilation. Pulmonology is following. 7. The patient does have chronic kidney disease. Her creatinine is stable at 2.1. 8. The patient does have end-stage HFrEF. Her prognosis is very poor. We will give her some time on the dobutamine drip and Bumex drip to see if she improves from a cardiac standpoint. 9. The patient's family have decided to make her a DNR at this time which is reasonable given her very poor prognosis and end-stage cardiac disease. 10. We did offer to turn the patient's shocking coil off of her defibrillator as they have asked for no compressions or shocks to be delivered but she does have an AICD which will shock her. They want some time to think about this. 11. Further recommendations will be made pending the patient's response to treatment. Thank you for the opportunity to help participate in the care of this patient. All recommendations and orders are per Dr. Caldwell. Addendum: The patient's family has requested to turn the shocking coil off on the patient's AICD. This was turned off around 12:35 PM.
--- NOTE | 2025-06-14 16:10 | P.PN_ITS ---
Subjective *Date: 06/14/25 *Time: 16:10 Interval history: intubated and sedated Exam Data for Last 24 hours Vital signs and Labs for Last 24 Hours: Temp Pulse Resp BP Pulse Ox O2 Del Method O2 Flow Rate 98.4 F 128 H 17 79/38 L 91 L Mechanical Ventilation 60 06/14/25 14:30 06/14/25 14:30 06/14/25 15:25 06/14/25 14:30 06/14/25 15:09 06/14/25 14:30 06/13/25 16:20 FiO2 50 06/14/25 15:25 Laboratory Results - last 24 hr 06/13/25 12:53: Free T4 3.53 H, HCV Ab ZENAIDA w/Rflx PCR Qn Negative, HIV Ag/Ab Combo Qual Negative 06/13/25 17:34: POC Glucose 182 H 06/13/25 18:38: Sodium 126 L, Potassium 6.8 H*, Chloride 94 L, Carbon Dioxide 23, Anion Gap 15.8 H, BUN 58 H, Creatinine 2.20 H, Estimated Creat Clear 38, Estimated GFR 23 L, Est GFR ( Amer) 27 L, Glucose 175 H, Lactate 2.6 H, Calcium 10.0, Magnesium 2.4 H, Total Bilirubin 3.8 H, AST 354 H* D, ALT 80 H D, Alkaline Phosphatase 152 H, Troponin I 0.09 H, Total Protein 6.2 L, Albumin 3.6 D, Globulin 2.6, Albumin/Globulin Ratio 1.4 06/13/25 19:31: POC Glucose 181 H 06/14/25 02:51: POC Glucose 182 H 06/14/25 04:22: WBC 13.1 H, RBC 3.25 L, Hgb 8.4 L D, Hct 28.1 L, MCV 86.5, MCH 27.1, MCHC 31.3 L, RDW 20.9 H, Plt Count 231, MPV 9.9, Neut % (Auto) 86.5 H, Lymph % (Auto) 1.8 L, [place] % (Auto) 9.8 H, Eos % (Auto) 1.2, Baso % (Auto) 0.2, Neut # (Auto) 11.3 H, Lymph # (Auto) 0.2 L, [place] # (Auto) 1.3 H, Eos # (Auto) 0.2, Baso # (Auto) 0.0, Total Counted 100, Neutrophils % (Manual) 90 H, Lymphocytes % (Manual) 3 L, Monocytes % (Manual) 7, Platelet Estimate Normal, RBC Morphology Normal, PT 90.0 H, INR 8.00 H, Sodium 127 L, Potassium 5.8 H, Chloride 93 L, Carbon Dioxide 27, Anion Gap 12.8, BUN 59 H, Creatinine 2.10 H, Estimated Creat Clear 40, Estimated GFR 24 L, Est GFR ( Amer) 29 L, Glucose 161 H, Lactate 1.5, Calcium 9.6, Total Bilirubin 2.9 H, Direct Bilirubin 2.2 H, Conjugated Bilirubin 0.8 H, Indirect Bilirubin 0.7, Unconjugated Bilirubin 0.7, AST 320 H*, ALT 80 H, Alkaline Phosphatase 140 H, Total Protein 6.0 L, Albumin 3.3 L, Triglycerides 170 H, Cholesterol 148, LDL Cholesterol Direct 84.09 L, VLDL Cholesterol 34, HDL Cholesterol 18 L, Cholesterol/HDL Ratio 8.2 H 06/14/25 08:20: POC Glucose 175 H 06/14/25 13:54: POC Glucose 145 H I & O for Last 24 hours: Intake & Output 06/11/25 06/12/25 06/13/25 06/14/25 23:59 23:59 23:59 23:59 Intake Total 417.749 / 417.749 912.661 / 912.661 Output Total 510 / 860 1825 / 1825 Balance -92.251 / -442.251 -912.339 / -912.339 Weight 91.49 kg 91.535 kg Microbiology Reports for the Last 24 Hours: Microbiology 06/13/25 14:46 Blood Blood Culture - Preliminary NO GROWTH AFTER 24 HOURS 06/13/25 14:55 Blood Blood Culture - Preliminary NO GROWTH AFTER 24 HOURS 06/13/25 13:28 Sputum - Endotracheal Tube Aspirate Gram Stain - Final Constitutional Constitutional: severe distress *Routine HEENT Exam Head: Present normocephalic Eye: Present EOMI and PERRL ENT: Present mucous membranes moist *Routine Neck Exam Neck: Present supple; Absent lymphadenopathy *Routine Respiratory Exam Respiratory: Present diminished air movement *Routine Cardiovascular Exam Cardiovascular: Present RRR *Routine Abdominal Exam Abdominal: Present soft and normoactive bowel sounds; Absent tenderness *Routine Extremities Exam Extremities: Absent cyanosis, clubbing or edema *Routine Skin Exam Skin: Present warm; Absent rash *Routine Neurological Exam Neurological: Present alert and oriented X3 Assessment and Plan *Assessment and plan (1) Shock: Status: Acute Category: Medical Code(s): R57.9 - Shock, unspecified (2) On mechanically assisted ventilation: Status: Acute Category: Medical Code(s): Z99.11 - Dependence on respirator [ventilator] status (3) Sepsis: Status: Acute Qualifiers: Sepsis acute organ dysfunction status: with acute organ dysfunction Sepsis type: sepsis due to unspecified organism Severe sepsis acute organ dysfunction type: unspecified Severe sepsis shock status: with septic shock Qualified Code(s): A41.9 - Sepsis, unspecified organism; R65.21 - Severe sepsis with septic shock Category: Medical Code(s): A41.9 - Sepsis, unspecified organism (4) Acute and chronic respiratory failure with hypoxia: Status: Acute Category: Medical Code(s): J96.21 - Acute and chronic respiratory failure with hypoxia (5) V tach: Status: Acute Category: Medical Code(s): I47.20 - Ventricular tachycardia, unspecified (6) Acute hyperkalemia: Status: Acute Category: Medical Code(s): E87.5 - Hyperkalemia (7) Acute on chronic HFrEF (heart failure with reduced ejection fraction): Status: Acute Category: Medical Code(s): I50.23 - Acute on chronic systolic (congestive) heart failure (8) Thrombosis of left upper extremity: Status: Acute Category: Medical Code(s): I82.602 - Acute embolism and thrombosis of unspecified veins of left upper extremity (9) Iron deficiency anemia: Status: Acute Qualifiers: Iron deficiency anemia type: unspecified iron deficiency Qualified Code(s): D50.9 - Iron deficiency anemia, unspecified Category: Medical Code(s): D50.9 - Iron deficiency anemia, unspecified (10) Presence of biventricular AICD: Status: Acute Category: Surgical Code(s): Z95.810 - Presence of automatic (implantable) cardiac defibrillator (11) History of mitral valve replacement with mechanical valve: Status: Acute Category: Surgical Code(s): Z95.2 - Presence of prosthetic heart valve (12) Current use of detention anticoagulation: Status: Acute Category: Medical Code(s): Z79.01 - FPC (current) use of anticoagulants (13) Pulmonary hypertension: Status: Suspected Category: Medical Code(s): I27.20 - Pulmonary hypertension, unspecified (14) Diabetes mellitus: Status: Acute Qualifiers: Diabetes mellitus complication status: without complication Diabetes mellitus type: type 1 Qualified Code(s): E10.9 - Type 1 diabetes mellitus without complications Category: Medical Code(s): E11.9 - Type 2 diabetes mellitus without complications (15) CKD (chronic kidney disease) stage 4, GFR 15-29 ml/min: Status: Acute Category: Medical Code(s): N18.4 - Chronic kidney disease, stage 4 (severe) (16) Atrial fibrillation, chronic: Status: Acute Category: Medical Code(s): I48.20 - Chronic atrial fibrillation, unspecified (17) Hyperlipidemia: Status: Acute Qualifiers: Hyperlipidemia type: unspecified Qualified Code(s): E78.5 - Hyperlipidemia, unspecified Category: Medical Code(s): E78.5 - Hyperlipidemia, unspecified (18) HTN (hypertension): Status: Acute Qualifiers: Hypertension type: unspecified Qualified Code(s): I10 - Essential (primary) hypertension Category: Medical Code(s): I10 - Essential (primary) hypertension (19) Dyspnea: Status: Acute Qualifiers: Dyspnea type: dyspnea on exertion Qualified Code(s): R06.09 - Other forms of dyspnea Category: Medical Code(s): R06.00 - Dyspnea, unspecified (20) COPD (chronic obstructive pulmonary disease): Status: Acute Qualifiers: COPD type: unspecified COPD Qualified Code(s): J44.9 - Chronic obstructive pulmonary disease, unspecified Category: Medical Code(s): J44.9 - Chronic obstructive pulmonary disease, unspecified Plan Patient is a 60-year-old female with past medical history of heart failure with reduced ejection fraction cardiomyopathy iron deficiency anemia, pulmonary hypertension, diabetes mellitus, CKD stage IV, atrial fibrillation, hypertension, hyperlipidemia, COPD, DVT left upper extremity on Coumadin who presents to the hospital via EMS due to complaints of shortness of breath orthopnea and cyanosis. On handoff from the ED physician, family was leaning towards comfort care approach and was waiting for other family members to arrive in the hospital. At time of my evaluation patient is unable to provide any history, patient was made DNR in the emergency department as well as family requested no escalation of care. Assessment and plan Acute on chronic hypoxic respiratory failure Ventricular tachycardia status post synchronized cardioversion Ventilator dependent respiratory failure Coagulopathy Hyperkalemia Acute on chronic CHF with reduced ejection fraction Suspect COPD exacerbation Patient is currently intubated and sedated Patient was made DNR in the emergency department Patient family requested no escalation of care from this point Patient family requested Difibrillator to be switched off per cardiology continue medical management for now Patient family requesting other family members to arrive to discuss comfort care approach Patient has overall poor prognosis in the setting of acute CHF cardiomyopathy coagulopathy, hyperkalemia, acute hypoxic respiratory failure Cardiology recommended starting milrinone, broad-spectrum antibiotics Status post synchronized cardioversion DVT PPx - home warfarin on hold, due to coagulopathy, family is leaning towards comfort care
--- NOTE | 2025-06-14 18:29 | PC.NURSE ---
attempted SBT this shift. pt was very restless and thrashing in the bed. RT in contact with Dr Aguero. Dr hall stated to stop SBT 1630. sedation turned back on and titrated up r/t pt continued thrashing/agitation.
[2025-06-14 20:05] LABS: POC Glucose,Bedside 173 (70-110)
[2025-06-14 20:24] LABS: Hematocrit 25.1 % (37.0-47.0); Hemoglobin 8.0 g/dL (12.2-16.2); Immature Granulocytes % 0.4 %; Mean Corpuscular HGB Conc 31.9 g/dL (31.8-35.4); Mean Corpuscular Hemoglobin 27.4 pg (27.0-31.2); Mean Corpuscular Volume 86.0 fl (81-99); Nucleated Red Blood Cells % 0 %; Platelet Count 182 K/mm3 (142-424); Red Blood Count 2.92 M/mm3 (4.20-5.40); Red Cell Distribution Width-SD 65.0 fL; White Blood Count 11.2 K/mm3 (4.8-10.8)
[2025-06-14 20:33] LABS: Albumin Level 3.1 g/dl (3.5-5.0); Chloride 91 mmol/L (98-107); Potassium 5.2 mmoL/L (3.5-5.1); Sodium 125 mmol/L (136-145)
[2025-06-14 20:35] LABS: Blood Urea Nitrogen 59 mg/dl (7-17); Creatinine Clearance Estimated 34 mL/min (50-200); Creatinine,Serum 2.50 mg/dl (0.52-1.04); Estimated Glomerular Filt Rate 20 ml/min (>60); GFR (African American) 24 ML/MIN (>60)
[2025-06-14 20:36] LABS: Alanine Aminotransferase 68 U/L (12-78); Albumin/Globulin Ratio 1.1 (1.1-1.8); Alkaline Phosphatase 128 U/L (38-126); Anion Gap 14.2 mEq/L (5-15); Aspartate Amino Transferase 198 U/L (14-36); Bilirubin,Total 2.5 mg/dl (0.2-1.3); Calcium 8.9 mg/dl (8.4-10.2); Carbon Dioxide 25 mmol/L (22.0-30.0); Globulin 2.8 g/dL (1.3-3.2); Glucose 151 mg/dl (74-100); Total Protein,Serum 5.9 g/dl (6.3-8.2)
[2025-06-14 20:52] LABS: Prothrombin Time 90.0 seconds (10.1-12.5)
[2025-06-14 20:53] LABS: INR 8.00 (0.9-1.1)
[2025-06-14 21:00] LABS: Total Cells Counted 100
[2025-06-14 21:01] LABS: Ovalocytes 1+; Poikilocytosis 1+; Target Cells 1+; Tear Drop Cells 1+
[2025-06-14 21:04] LABS: Macrocytosis 1+; Microcytosis 1+
[2025-06-14 21:05] LABS: Polychromasia 1+
[2025-06-14 21:07] LABS: Anisocytosis 1+; Sickle Cells 1+
--- NOTE | 2025-06-14 21:44 | PC.NURSE ---
Propofol drip paused at this time for possible terminal extubation
--- NOTE | 2025-06-14 21:50 | PC.NURSE ---
Per MD Abiel Herbert he spoke with Dr. Aguero about family wanting to terminally extubate patient tonight. Dr. Aguero agrees to stop the propofol for an hour and then as long as family is good with it then drips will be turned off and patient will be extubated.
--- NOTE | 2025-06-14 21:58 | P.EN_ITS ---
Advance care planning note: Active diagnosis: Patient has long history of worsening heart failure with reduced ejection fraction, presented with cardiogenic shock. Has mechanical mitral valve. Chronic anticoagulation. Respiratory failure necessitating mechanical ventilation. Multiorgan dysfunction. Severe volume overload. Worsening kidney dysfunction/failure. Lack of response to treatment. The patient's active diagnoses are of sufficient risk that focused discussion on advanced care planning is indicated in order to allow the patient to thoughtfully consider personal goals of care; and, if situations arise that prevent the ability to personally give input, to ensure appropriate representation of their personal desires through documentation or informed surrogate decision makers. Discussion: Persons present and participating in discussion: Patient's daughters and sister Discussion: Extensive discussion with family about patient's continued decline. She has failed to respond to treatment with diuresis. On medications for heart failure/cardiogenic shock with no improvement. Both cardiology and pulmonology has seen patient and assisted with care. At this time from a cardiovascular standpoint there is no further benefit given the severity of her cardiogenic shock and acute on chronic heart failure with volume overload. Had poor tolerance of SBT earlier in the day with significant agitation. This upset family and they do not want to continue to make patient suffer. Extensive discussion with family. Would like to proceed with comfort care/terminal ext ubation. Will proceed with weaning sedation and extubate 45 minutes to an hour after stopping propofol. They understand that this will lead to the patient's . They are in agreement and would like to focus on keeping her comfortable and allow her to pass peacefully. They do not want to continue with any life- prolonging treatments or life support. Time spent: Total time spent [id number] in education and discussion directly related to advance care plannin minutes Neptali Herbert 06/14/2025 9:10-9:35 PM
[2025-06-14] MEDS: LORazepam 2MG/ML VIAL 1 MG IV (22:03)
[2025-06-14] MEDS: HYDROMORPHONE 2MG/ML SYRINGE 2 MG IV (22:52)
--- NOTE | 2025-06-14 22:56 | PC.NURSE ---
Patient extubated at 2255 to 4LNC with family and dr campo at bedside, Rt and other staff members. [facility] was called prior to extubation and gave consent to proceed with withdrawing care. I spoke with melita partida whom told me to call back with cardiac TOD within an hour of patient passing. Family at bedside with patient at this time, will provide supportive care to family and patient.
--- NOTE | 2025-06-14 23:54 | PC.NURSE ---
Patient has been changed to comfort care. Vitals will be obtained Q12 hours. no more fingersticks.
[2025-06-15] VITALS: O2SAT 74
--- NOTE | 2025-06-15 00:48 | P.DS_ITS ---
General Admission date:: 06/13/25 HPI HPI HPI: Patient is a 60-year-old female with past medical history of heart failure with reduced ejection fraction cardiomyopathy iron deficiency anemia, pulmonary hypertension, diabetes mellitus, CKD stage IV, atrial fibrillation, hypertension, hyperlipidemia, COPD, DVT left upper extremity on Coumadin who presents to the hospital via EMS due to complaints of shortness of breath orthopnea and cyanosis. On handoff from the ED physician, family was leaning towards comfort care approach and was waiting for other family members to arrive in the hospital. At time of my evaluation patient is unable to provide any history, patient was made DNR in the emergency department as well as family requested no escalation of care. Exam Data for Last 24 hours Vital signs and Labs for Last 24 Hours: Temp Pulse Resp BP Pulse Ox O2 Del Method O2 Flow Rate 98.2 F 107 H 9 L 101/41 L 73 L Nasal Cannula 4 06/14/25 23:00 06/14/25 23:47 06/14/25 23:47 06/14/25 23:00 06/14/25 23:47 06/14/25 23:47 06/14/25 23:47 FiO2 50 06/14/25 22:31 Laboratory Results - last 24 hr 06/14/25 02:51: POC Glucose 182 H 06/14/25 04:22: WBC 13.1 H, RBC 3.25 L, Hgb 8.4 L D, Hct 28.1 L, MCV 86.5, MCH 27.1, MCHC 31.3 L, RDW 20.9 H, Plt Count 231, MPV 9.9, Neut % (Auto) 86.5 H, Lymph % (Auto) 1.8 L, Glasscock % (Auto) 9.8 H, Eos % (Auto) 1.2, Baso % (Auto) 0.2, Neut # (Auto) 11.3 H, Lymph # (Auto) 0.2 L, Glasscock # (Auto) 1.3 H, Eos # (Auto) 0.2, Baso # (Auto) 0.0, Total Counted 100, Neutrophils % (Manual) 90 H, Lymphocytes % (Manual) 3 L, Monocytes % (Manual) 7, Platelet Estimate Normal, RBC Morphology Normal, PT 90.0 H, INR 8.00 H, Sodium 127 L, Potassium 5.8 H, Chloride 93 L, Carbon Dioxide 27, Anion Gap 12.8, BUN 59 H, Creatinine 2.10 H, Estimated Creat Clear 40, Estimated GFR 24 L, Est GFR ( Amer) 29 L, Glucose 161 H, Lactate 1.5, Calcium 9.6, Total Bilirubin 2.9 H, Direct Bilirubin 2.2 H, Conjugated Bilirubin 0.8 H, Indirect Bilirubin 0.7, Unconjugated Bilirubin 0.7, AST 320 H*, ALT 80 H, Alkaline Phosphatase 140 H, Total Protein 6.0 L, Albumin 3.3 L, Triglycerides 170 H, Cholesterol 148, LDL Cholesterol Direct 84.09 L, VLDL Cholesterol 34, HDL Cholesterol 18 L, Cholesterol/HDL Ratio 8.2 H 06/14/25 08:20: POC Glucose 175 H 06/14/25 13:54: POC Glucose 145 H 06/14/25 19:56: POC Glucose 173 H 06/14/25 20:10: WBC 11.2 H, RBC 2.92 L, Hgb 8.0 L, Hct 25.1 L, MCV 86.0, MCH 27.4, MCHC 31.9, RDW 21.1 H, Plt Count 182, MPV 9.1, Neut % (Auto) 88.5 H, Lymph % (Auto) 1.3 L, Glasscock % (Auto) 9.1, Eos % (Auto) 0.4, Baso % (Auto) 0.3, Neut # (Auto) 9.9 H, Lymph # (Auto) 0.2 L, Glasscock # (Auto) 1.0, Eos # (Auto) 0.1, Baso # (Auto) 0.0, Total Counted 100, Neutrophils % (Manual) 92 H, Lymphocytes % (Manual) 1 L, Monocytes % (Manual) 7, Platelet Estimate Normal, Polychromasia 1+, Poikilocytosis 1+, Anisocytosis 1+, Microcytosis 1+, Macrocytosis 1+, Sickle Cells 1+, Target Cells 1+, Tear Drop Cells 1+, Ovalocytes 1+, PT 90.0 H, INR 8.00 H, Sodium 125 L, Potassium 5.2 H, Chloride 91 L, Carbon Dioxide 25, Anion Gap 14.2, BUN 59 H, Creatinine 2.50 H, Estimated Creat Clear 34, Estimated GFR 20 L, Est GFR ( Amer) 24 L, Glucose 151 H, Calcium 8.9, Total Bilirubin 2.5 H, AST 198 H D, ALT 68, Alkaline Phosphatase 128 H, Total Protein 5.9 L, Albumin 3.1 L, Globulin 2.8, Albumin/Globulin Ratio 1.1 I & O for Last 24 hours: Intake & Output 06/12/25 06/13/25 06/14/25 06/15/25 23:59 23:59 23:59 23:59 Intake Total 417.749 / 373.330 5842.379 / 1773.379 Output Total 510 / 860 5 / 2095 Balance -92.251 / -442.251 -321.621 / -321.621 Weight 91.49 kg 91.535 kg Microbiology Reports for the Last 24 Hours: Microbiology 06/13/25 14:46 Blood Blood Culture - Preliminary NO GROWTH AFTER 24 HOURS 06/13/25 14:55 Blood Blood Culture - Preliminary NO GROWTH AFTER 24 HOURS Results Data Completed and Pending Labs on day of discharge: Labs from last 24 hours 06/14/25 06/14/25 06/14/25 20:10 19:56 13:54 WBC 11.2 H RBC 2.92 L Hgb 8.0 L Hct 25.1 L MCV 86.0 MCH 27.4 MCHC 31.9 RDW 21.1 H Plt Count 182 MPV 9.1 Neut % (Auto) 88.5 H Lymph % (Auto) 1.3 L Glasscock % (Auto) 9.1 Eos % (Auto) 0.4 Baso % (Auto) 0.3 Neut # (Auto) 9.9 H Lymph # (Auto) 0.2 L Glasscock # (Auto) 1.0 Eos # (Auto) 0.1 Baso # (Auto) 0.0 Total Counted 100 Neutrophils % (Manual) 92 H Lymphocytes % (Manual) 1 L Monocytes % (Manual) 7 Platelet Estimate Normal RBC Morphology Polychromasia 1+ Poikilocytosis 1+ Anisocytosis 1+ Microcytosis 1+ Macrocytosis 1+ Sickle Cells 1+ Target Cells 1+ Tear Drop Cells 1+ Ovalocytes 1+ PT 90.0 H INR 8.00 H Sodium 125 L Potassium 5.2 H Chloride 91 L Carbon Dioxide 25 Anion Gap 14.2 BUN 59 H Creatinine 2.50 H Estimated Creat Clear 34 Estimated GFR 20 L Est GFR ( Amer) 24 L Glucose 151 H POC Glucose 173 H 145 H Lactate Calcium 8.9 Total Bilirubin 2.5 H Direct Bilirubin Conjugated Bilirubin Indirect Bilirubin Unconjugated Bilirubin AST 198 H D ALT 68 Alkaline Phosphatase 128 H Total Protein 5.9 L Albumin 3.1 L Globulin 2.8 Albumin/Globulin Ratio 1.1 Triglycerides Cholesterol LDL Cholesterol Direct VLDL Cholesterol HDL Cholesterol Cholesterol/HDL Ratio 06/14/25 06/14/25 06/14/25 08:20 04:22 02:51 WBC 13.1 H RBC 3.25 L Hgb 8.4 L D Hct 28.1 L MCV 86.5 MCH 27.1 MCHC 31.3 L RDW 20.9 H Plt Count 231 MPV 9.9 Neut % (Auto) 86.5 H Lymph % (Auto) 1.8 L Glasscock % (Auto) 9.8 H Eos % (Auto) 1.2 Baso % (Auto) 0.2 Neut # (Auto) 11.3 H Lymph # (Auto) 0.2 L Glasscock # (Auto) 1.3 H Eos # (Auto) 0.2 Baso # (Auto) 0.0 Total Counted 100 Neutrophils % (Manual) 90 H Lymphocytes % (Manual) 3 L Monocytes % (Manual) 7 Platelet Estimate Normal RBC Morphology Normal Polychromasia Poikilocytosis Anisocytosis Microcytosis Macrocytosis Sickle Cells Target Cells Tear Drop Cells Ovalocytes PT 90.0 H INR 8.00 H Sodium 127 L Potassium 5.8 H Chloride 93 L Carbon Dioxide 27 Anion Gap 12.8 BUN 59 H Creatinine 2.10 H Estimated Creat Clear 40 Estimated GFR 24 L Est GFR ( Amer) 29 L Glucose 161 H POC Glucose 175 H 182 H Lactate 1.5 Calcium 9.6 Total Bilirubin 2.9 H Direct Bilirubin 2.2 H Conjugated Bilirubin 0.8 H Indirect Bilirubin 0.7 Unconjugated Bilirubin 0.7 AST 320 H* ALT 80 H Alkaline Phosphatase 140 H Total Protein 6.0 L Albumin 3.3 L Globulin Albumin/Globulin Ratio Triglycerides 170 H Cholesterol 148 LDL Cholesterol Direct 84.09 L VLDL Cholesterol 34 HDL Cholesterol 18 L Cholesterol/HDL Ratio 8.2 H Preliminary micro results at discharge 06/13/25 14:46 Blood Culture - Preliminary Blood NO GROWTH AFTER 24 HOURS 06/13/25 14:55 Blood Culture - Preliminary Blood NO GROWTH AFTER 24 HOURS DS: Diagnosis Discharge Diagnosis (1) Shock: Status: Acute Code(s): R57.9 - Shock, unspecified (2) On mechanically assisted ventilation: Status: Acute Code(s): Z99.11 - Dependence on respirator [ventilator] status (3) Sepsis: Status: Acute Code(s): A41.9 - Sepsis, unspecified organism Qualifiers: Sepsis acute organ dysfunction status: with acute organ dysfunction Sepsis type: sepsis due to unspecified organism Severe sepsis acute organ dysfunction type: unspecified Severe sepsis shock status: with septic shock Qualified Code(s): A41.9 - Sepsis, unspecified organism; R65.21 - Severe sepsis with septic shock (4) Acute and chronic respiratory failure with hypoxia: Status: Acute Code(s): J96.21 - Acute and chronic respiratory failure with hypoxia (5) V tach: Status: Acute Code(s): I47.20 - Ventricular tachycardia, unspecified (6) Acute hyperkalemia: Status: Acute Code(s): E87.5 - Hyperkalemia (7) Acute on chronic HFrEF (heart failure with reduced ejection fraction): Status: Acute Code(s): I50.23 - Acute on chronic systolic (congestive) heart failure (8) Thrombosis of left upper extremity: Status: Acute Code(s): I82.602 - Acute embolism and thrombosis of unspecified veins of left upper extremity (9) Iron deficiency anemia: Status: Acute Code(s): D50.9 - Iron deficiency anemia, unspecified Qualifiers: Iron deficiency anemia type: unspecified iron deficiency Qualified Code(s): D50.9 - Iron deficiency anemia, unspecified (10) Presence of biventricular AICD: Status: Acute Code(s): Z95.810 - Presence of automatic (implantable) cardiac defibrillator (11) History of mitral valve replacement with mechanical valve: Status: Acute Code(s): Z95.2 - Presence of prosthetic heart valve (12) Current use of [facility] anticoagulation: Status: Acute Code(s): Z79.01 - intermediate (current) use of anticoagulants (13) Pulmonary hypertension: Status: Suspected Code(s): I27.20 - Pulmonary hypertension, unspecified (14) Diabetes mellitus: Status: Acute Code(s): E11.9 - Type 2 diabetes mellitus without complications Qualifiers: Diabetes mellitus complication status: without complication Diabetes mellitus type: type 1 Qualified Code(s): E10.9 - Type 1 diabetes mellitus without complications (15) CKD (chronic kidney disease) stage 4, GFR 15-29 ml/min: Status: Acute Code(s): N18.4 - Chronic kidney disease, stage 4 (severe) (16) Atrial fibrillation, chronic: Status: Acute Code(s): I48.20 - Chronic atrial fibrillation, unspecified (17) Hyperlipidemia: Status: Acute Code(s): E78.5 - Hyperlipidemia, unspecified Qualifiers: Hyperlipidemia type: unspecified Qualified Code(s): E78.5 - Hyperlipidemia, unspecified (18) HTN (hypertension): Status: Acute Code(s): I10 - Essential (primary) hypertension Qualifiers: Hypertension type: unspecified Qualified Code(s): I10 - Essential (primary) hypertension (19) Dyspnea: Status: Acute Code(s): R06.00 - Dyspnea, unspecified Qualifiers: Dyspnea type: dyspnea on exertion Qualified Code(s): R06.09 - Other forms of dyspnea (20) COPD (chronic obstructive pulmonary disease): Status: Acute Code(s): J44.9 - Chronic obstructive pulmonary disease, unspecified Qualifiers: COPD type: unspecified COPD Qualified Code(s): J44.9 - Chronic obstructive pulmonary disease, unspecified Meds Home Medications and Allergies Home Medications ?Medication ?Instructions ?Recorded ?Confirmed ?Type oxycodone-acetaminophen 10 mg-325 1 tab PO QID 8 06/14/25 History mg tablet (Percocet) alprazolam 0.5 mg tablet (Xanax) 0.5 mg PO TID 0 06/14/25 History levothyroxine 25 mcg tablet 25 mcg PO DAILY 06/05/21 0 06/14/25 History insulin glargine 100 60 units SQ DAILY 02/22/22 0 06/14/25 History unit-lixisenatide 33 mcg/mL subcutaneous pen (Soliqua 100/33) febuxostat 40 mg tablet 40 mg PO DAILY 02/09/2305/23 History potassium chloride 20 mEq 20 meq PO BID 04/15/2306/14 History tablet,extended release(part/cryst) calcitriol 0.25 mcg capsule 0.25 mcg PO DAILY 10/30/23 06/14/25 History duloxetine 60 mg capsule,delayed 60 mg PO HS 03/06/24 06/14/25 History release empagliflozin 10 mg tablet 10 mg PO DAILY #30 tabs 06/14/25 Rx (Jardiance) warfarin 4 mg tablet 2 mg (1/2 x 4 mg) PO DAILY 3 0 days 01/05/25 06/14/25 Rx #0 tabs insulin glargine 100 unit/mL (3 14 unit SQ HS 01/17/25 06/14/25 History mL) subcutaneous pen (Lantus Solostar U-100 Insulin) amiodarone 200 mg tablet 200 mg PO DAILY #90 tabs 11/1506/14/25 Rx blood-glucose sensor (Dexcom G6 #1 ea 04/05/25 5 History Sensor device) blood-glucose transmitter (Dexcom #1 ea 04/05/2506/14 History G6 Transmitter device) blood-glucose,claim representative,cont #1 ea 04/05/25 06/14/25 Hi story (Dexcom G6 Reclamation Furnace Operator) dexlansoprazole 60 mg 60 mg PO DAILY 04/05/2505/23 History capsule,biphase delayed release pen needle, diabetic 32 gauge x #1,200 ea 04/05/25 History metoprolol succinate 25 mg 50 mg (2 x 25 mg) PO DAILY 30 days 04/12/25 06/14/25 Rx tablet,extended release 24 hr #60 tabs bumetanide 2 mg tablet 3 mg PO BID 05/29/25 5 History spironolactone 50 mg tablet 50 mg PO BID 05/30/2505/23 History metolazone 2.5 mg tablet 2.5 mg PO BID 30 days #60 ta bs 06/01/25 06/14/25 Rx albuterol sulfate 90 mcg/actuation 2 puff inhalation Q 4HP PRN Wheezing 06/14/25 06/14/25 History aerosol inhaler New Prescriptions to Start Prescriptions: Allergies Allergy/AdvReac Type Severity Reaction Status Date / Time codeine (CODEINE) Allergy Unknown nausea, Verified 05/29/25 13:11 swelling Corticosteroids Allergy Unknown Unknown Verified 05/29/25 13:11 (Glucocorticoids) allergy (CORTICOSTEROIDS reaction (GLUCOCORTICOIDS)) NSAIDS (Non-Steroidal Allergy Unknown Other Verified 05/29/25 13:11 Anti-Inflamma rosuvastatin (From CRESTOR) Allergy Unknown Unknown Verified 05/29/25 13:11 allergy reaction theophylline (From DAVID-DUR) Allergy Unknown Unknown Verified 05/29/25 13:11 allergy reaction allopurinol Allergy Hives Verified 05/29/25 13:11 Iodinated Contrast Media AdvReac Severe shuts Verified 05/29/25 13:11 (IODINATED CONTRAST- ORAL kidneys AND IV DYE) down and bleeding buprenorphine (From BUPRENEX) AdvReac Intermediate Nausea Verified 05/29/25 13:11 levofloxacin (From Levaquin) AdvReac Other Verified 05/29/25 13:11 lisinopril AdvReac Cough Verified 05/29/25 13:11 prednisone AdvReac Unknown Verified 05/29/25 13:11 allergy reaction sacubitril (From Entresto) AdvReac Hypotension Verified 05/29/25 13:11 valsartan (From Entresto) AdvReac Hypotension Verified 05/29/25 13:11 Discharge Plan Disposition Condition: Critical Follow up Plan Prescriptions/Medication Reconciliation: No Action oxycodone-acetaminophen [Percocet] 10-325 mg tablet 1 tab PO QID alprazolam [Xanax] 0.5 mg tablet 0.5 mg PO TID potassium chloride 20 mEq tablet,ER particles/crystals 20 meq PO BID duloxetine 60 mg capsule,delayed release(DR/EC) 60 mg PO HS (DME) Dexcom G6 Transmitter Device See Rx Instructions .ROUTE .MEDSUPPLY Qty: 1 Patient Comments: USE DIRECTED. Rx Instructions: As directed (DME) pen needle, diabetic 32 gauge x 5/32 needle See Rx Instructions .ROUTE .MEDSUPPLY Qty: 1200 Patient Comments: USE TWICE DAILY Rx Instructions: As directed dexlansoprazole 60 mg capsule,biphase delayed releas 60 mg PO DAILY (DME) Dexcom G6 Sensor Device See Rx Instructions .ROUTE .MEDSUPPLY Qty: 1 Patient Comments: CHANGE EVERY 10 DAYS DIRECTED. Rx Instructions: As directed (DME) Dexcom G6 Reclamation Furnace Operator Misc See Rx Instructions .ROUTE .MEDSUPPLY Qty: 1 Patient Comments: USE DIRECTED. Rx Instructions: As directed amiodarone 200 mg tablet 200 mg PO DAILY Qty: 90 3RF levothyroxine 25 MCG tablet 25 mcg PO DAILY calcitriol 0.25 mcg Capsule 0.25 mcg PO DAILY Soliqua 100/33 3 ML insulin pen 60 units SQ DAILY febuxostat 40 mg tablet 40 mg PO DAILY insulin glargine [Lantus Solostar U-100 Insulin] 100 unit/mL (3 mL) insulin pen 14 unit SQ HS Jardiance 10 mg tablet 10 mg PO DAILY Qty: 30 1RF warfarin 4 mg tablet 2 mg PO DAILY 30 Days Qty: 0 0RF metoprolol succinate 25 mg tablet extended release 24 hr 50 mg PO DAILY 30 Days Qty: 60 0RF bumetanide 2 mg tablet 3 mg PO BID spironolactone 50 mg tablet 50 mg PO BID metolazone 2.5 mg Tablet 2.5 mg PO BID 30 Days Qty: 60 0RF albuterol sulfate 90 mcg/actuation HFA aerosol inhaler 2 puff INHALATION Q4HP PRN (Reason: Wheezing) Patient Comments: INHALE 2 PUFFS EVERY 4 HOURS NEEDED FOR WHEEZING Patient Discharge Instructions Patient Instructions: Coumadin Vitamin K/ Diet Print Language: Uzbek Providers Primary Care Provider: Provider,Referral Admit Provider: Neptali Herbert Attending Provider: Neptali Herbert
[2025-06-15] MEDS: HYDROMORPHONE 2MG/ML SYRINGE 1 MG IV (00:56)
[2025-06-15 01:37] VITALS: PULSE 0
--- NOTE | 2025-06-15 01:48 | PC.NURSE ---
Patient at 0137. time of was called by MD Abiel Herbert. Call placed to [facility] to let them know the time of and net fisher was paged.
--- NOTE | 2025-06-15 01:51 | P.DN_ITS ---
Pronouncement Note Date and Time of Date of : 06/15/25 Time of : 01:37 PCOD Preliminary cause of : Cardiogenic shock Contributing Factors (1) Acute on chronic HFrEF (heart failure with reduced ejection fraction): (2) Shock: (3) On mechanically assisted ventilation: (4) Sepsis: (5) Acute and chronic respiratory failure with hypoxia: (6) V tach: (7) Acute hyperkalemia: (8) Thrombosis of left upper extremity: (9) Iron deficiency anemia: (10) Presence of biventricular AICD: (11) History of mitral valve replacement with mechanical valve: (12) Current use of half-way anticoagulation: (13) Pulmonary hypertension: (14) Diabetes mellitus: (15) CKD (chronic kidney disease) stage 4, GFR 15-29 ml/min: (16) Atrial fibrillation, chronic: (17) Hyperlipidemia: (18) HTN (hypertension): (19) Dyspnea: (20) COPD (chronic obstructive pulmonary disease): Summary Additional details: Patient is a 60-year-old female with past medical history of heart failure with reduced ejection fraction cardiomyopathy iron deficiency anemia, pulmonary hypertension, diabetes mellitus, CKD stage IV, atrial fibrillation, hypertension, hyperlipidemia, COPD, DVT left upper extremity on Coumadin who presents to the hospital via EMS due to complaints of shortness of breath orthopnea and cyanosis. Patient had acute respiratory failure and cardiogenic shock. Was intubated and admitted to the ICU on diuretic drip milrinone drip along with epinephrine. On handoff from the ED physician, family was leaning towards comfort care wanted to see if patient showed any improvement over 24 to 48 hours. Spontaneous breathing trial was performed and patient had significant distress. Repeat echo showed EF 15 to 20%. In light of her cardiogenic shock, worsening volume overload and multiorgan failure, and goals of care discussion with family, decision made to proceed with comfort care. Cardiology and pulmonology consulted and assisted with care. Unfortunately patient's condition determined to be terminal. Extensive discussion with family, elected to proceed with withdrawal of care and terminal extubation. Antibiotics, inotropes, and sedation were discontinued. Patient extubated. Family at bedside with patient when she . Survived approximately 2 hours off of life support from passing peacefully. Acute on chronic hypoxic respiratory failure Ventricular tachycardia status post synchronized cardioversion Ventilator dependent respiratory failure Coagulopathy Hyperkalemia Acute on chronic CHF with reduced ejection fraction Suspect COPD exacerbation Patient was intubated. After much discussion with family, decision to transition to DNR with no further escalation of care. Attempted diuresis and milrinone with no significant improvement. Remained hypotensive. Broad- spectrum antibiotics initiated. Coagulopathy worsened. As she was failing to respond to therapy, decision made to proceed with extubation and comfort care. Defibrillator switched off by cardiology. Additional Data Confirmation of : no pulse, no respirations, no heart sounds and pupils fixed and dilated Family: at bedside Attending/PCP notified?: Yes Attending physician: Neptali Herbert MD Was code activated?: No Autopsy should be considered if:: Unknown or unanticipated medical complications Cause is not known with certainty on clinical grounds Would allay concerns of the public/family regarding Unexplained/unexpected apparently natural and not subject to a forensic medical jurisdiction DOA Within 24 hours of admission Sustained or apparently sustained injury while in the hospital Result of high risk, infectious and contagious disease Obstetric and pediatric arising from environmental or occupational hazard Unexplained/unexpected from dental, medical, or surgical diagnostic procedures and/or therapies Would disclose a known or suspected illness which also may have a bearing on survivors or recipients of transplanted organs Autopsy requested?: No Does not meet criteria marine insurance claim examiner notified?: No Organ bank notified?: Yes Advance directives: Yes
--- NOTE | 2025-06-15 01:59 | PC.NURSE ---
Addendum entered by Lauren Murphy RN 06/15/25 02:07: call to [facility] was placed at 0155 Original Note: Steven Webb at [facility] gave the ok to release the body.
--- NOTE | 2025-06-15 02:15 | PC.NURSE ---
Made contact with [facility] in [place], [place]. 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
--- NOTE | 2025-06-15 02:24 | PC.NURSE ---
All Peripheral IV's have been taken out of the patient and sites have been covered with 4x4 gauze and kerlex to stop bleeding.
--- NOTE | 2025-06-15 02:45 | PC.NURSE ---
Family requested to give patient one last bath before the home came to get her. Both of the patients daughters are in the room at this time giving the patient post mortem care
--- NOTE | 2025-06-15 04:42 | PC.NURSE ---
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
--- NOTE | 2025-06-15 04:53 | PC.NURSE ---
Patient is now with home personnel and has left the unit
== END 2025-06-15 05:03 | disposition expired | DRG 291 ==
LOC: ER 14:06 → ICU 15:42
PROVIDERS: Internal Medicine; Internal Medicine Pulmonary Disease; Nurse Practitioner Family; Admitting Provider Internal Medicine Adolescent Medicine; Emergency Provider Emergency Medicine; Visit Provider Internal Medicine Adolescent Medicine
DX: R57.0 Cardiogenic shock (principal); I50.23 Acute on chronic systolic (congestive) heart failure; J96.21 Acute and chronic respiratory failure with hypoxia; I13.0 Hypertensive heart and chronic kidney disease with heart failure and stage 1 through stage 4 chronic kidney disease, or unspecified chronic kidney disease; I47.20 Ventricular tachycardia, unspecified; N18.4 Chronic kidney disease, stage 4 (severe); I48.20 Chronic atrial fibrillation, unspecified; Z99.11 Dependence on respirator [ventilator] status; D68.9 Coagulation defect, unspecified; J44.1 Chronic obstructive pulmonary disease with (acute) exacerbation; I82.602 Acute embolism and thrombosis of unspecified veins of left upper extremity; I50.84 End stage heart failure; R65.21 Severe sepsis with septic shock; I42.9 Cardiomyopathy, unspecified; E87.5 Hyperkalemia; D50.9 Iron deficiency anemia, unspecified; I27.20 Pulmonary hypertension, unspecified; E78.5 Hyperlipidemia, unspecified; E10.22 Type 1 diabetes mellitus with diabetic chronic kidney disease; Z66 Do not resuscitate; Z95.810 Presence of automatic (implantable) cardiac defibrillator; Z51.5 Encounter for palliative care; Z95.2 Presence of prosthetic heart valve; Z79.01 Long term (current) use of anticoagulants
CPT/HCPCS: 31500; 36415; 51702; 71045; 80048; 80053; 80061; 80076; 81001; 82803; 82962; 83605; 83735; 83880; 84100; 84439; 84484; 85007; 85025; 85610; 86803; 87040; 87070; 87081; 87086; 87205; 87389; 93005; 93306; 94003; 94640; 94761; J0169; J0282; J0330; J0612; J1171; J1250; J1939; J2060; J2250; J2260; J2543; J2704; J3010; J3375; J3430; J3475; J7050; Q9957